=== PATIENT | female | born 1955 | race Caucasian/White ===

== ENCOUNTER 2021-10-17 13:47 | Outpatient (CLI) | payer MEDICARE, SELFPAY ==
[2021-10-17 16:08] LABS: Chloride* 100 mmol/L (96-114)
[2021-10-17 16:09] LABS: Potassium* 4.5 mmol/L (3.6-5.1); Sodium* 134 mmol/L (135-149)
[2021-10-17 16:11] LABS: Creatinine* 0.6 mg/dL (0.5-1.5); Estimated Glomerular Filt Rate 98 ml/min
[2021-10-17 16:12] LABS: Blood Urea Nitrogen* 19 mg/dL (7-30); Calcium* 9.6 mg/dL (8.4-10.6); Carbon Dioxide* 27 mmol/L (20-32); Glucose* 217 mg/dL (60-115)
== END 2021-10-17 13:48 | disposition home or self-care (01) ==
PROVIDERS: PCP Family Medicine; Visit Provider Family Medicine
DX: E11.9 Type 2 diabetes mellitus without complications (principal); E87.1 Hypo-osmolality and hyponatremia; R53.83 Other fatigue; G89.4 Chronic pain syndrome
CPT/HCPCS: 80048; 84443

== ENCOUNTER 2022-01-12 11:08 | Outpatient (CLI) | payer MEDICARE, BC, SELFPAY ==
--- OUTSIDE RECORDS SUMMARY | 2022-01-21 08:45 | XMS_ITS | Encounter Summary ---
:1955 Author Organization [employer] Address [address], [place] [address] Care Team Providers Name Role Phone Thalia Barron PA-C Primary Care Provider Unavailable Reason for Visit Reason Comments NECK PAIN PAT STATED NECK IN A LOT OF PAIN TODAY Encounter Details Date Type Department Care Team Description 01/26/2019 Telephone Physicians Neck and Nehemiah Kothari N NIKITA PAIN (PAT STATED Back Center [facility] e PT NECK IN A LOT OF PAIN [address] [facility] [address] [address] [place] [address] [place], [place] [id number] Social History Tobacco Use Types Packs/Day Years [...] PLEASE ADVISE. PAT HAS APPT TODAY @ 3307. THANK YOU, Logan Thomson 01/26/2019, 7:55 AM GNMENT EDITOR documented in this encounter Plan of Treatment Not on filedocumented as of this encounter Visit Diagnoses Not on filedocumented in this encounter Care Teams Director Prison Relationship Specialty Start Date End Date Thalia Barron PA-C PCP - General Physician Twisting Machine Operator 10/06/18 documented as of this encounter
--- OUTSIDE RECORDS SUMMARY | 2022-01-21 08:45 | XMS_ITS | Encounter Summary ---
:1955 Author Organization [facility] Address [address], [place] [address] Care Team Providers Name Role Phone Thalia Barron PA-C Primary Care Provider Unavailable Encounter Details Date Type Department Care Team Description 02/01/2019 Notes/Orders Physicians Neck and Nehemiah Kothari M echanical low back pain (Primary Dx); Back Center PT Cervical spine pain [place] [address] [place] [address], [address] [place] [id number] Social History Tobacco Use [...] the morning with??Sx <??or = to??3-4??MET 01/12/19?? Tag Machine Operator Goals (>6 weeks): ?? 1. Patient [...] < or = to??1-2 in her feet??(not [id number], varies day to day) 6. Pt will [...] T-roto Nehemiah Kothari PT 02/01/2019, 7:35 PM EATION INSTRUCTOR documented in this encounter Plan of Treatment Not on filedocumented as of this encounter Visit Diagnoses Diagnosis Mechanical low back pain - Primary Lumbago Cervical spine pain Cervicalgia documented in this encounter Care Teams Computer Assembler Relationship Specialty Start Date End Date Thalia Barron PA-C PCP - General Physician Senior Maintenance Technician 10/06/18 documented as of this encounter
--- OUTSIDE RECORDS SUMMARY | 2022-01-21 08:45 | XMS_ITS | Encounter Summary ---
:1955 Author [facility] Address [address] [place] [id number] Care Team Providers Name Role Phone Thalia [...] OF SPINE LOW BACK PAIN Thalia Barron, [facility] [place] [address] [address] [facility], [address] [place] [address] [place] [address] Phone: Fax: Referral ID Status Reason Start Date Expiration Date Visits Requ ested Visits Authorized [id number] Closed 10/06/2018 01/05/2020 [id number] Encounter Details Date Type Department Care Team Description 01/28/2019 Therapy Physicians Neck and Marimar Pan PTA Mechanical low back pain (Primary Dx); Back Center [facility] [address], Cervical spine pain [address] [facility], [address] [place] [address] [place] [address] [phone] Social History Tobacco Use Types Packs/Day Years [...] tolerated) Start: 11:20 am End: 12:00 pm (ELECTRICAL/INSTRUMENT TECHNICIAN Visit # 1 Subjective: Patient plans to [...] to avoid flare Tests performed today (see [facility] for score and outcomes): : Oswestry=42% today, [...] discharges from the rehab and transitions to [facility] for strength maintenance of the cervical muscles. [...] exercise sheet and match the machines that [facility] uses. All STG's met, 3/ LTG [...] the morning with??Sx <??or = to??3-4??MET 01/12/19?? Senior Care Goals (>6 weeks): ?? 1. Patient will [...] < or = to??1-2 in her feet??(not [id number], varies day to day) 6. Pt will [...] 40 Khadijah Pan PTA 01/28/2019, 2:34 PM NGUAL SECRETARY documented in this encounter Plan of Treatment Not on filedocumented as of this encounter Visit Diagnoses Diagnosis Mechanical low back pain - Primary Lumbago Cervical spine pain Cervicalgia documented in this encounter Care Teams Occupational Therapy Director Relationship Specialty Start Date End Date Thalia Barron PA-C PCP - General Physician Returning Officer 10/06/18 documented as of this encounter
--- OUTSIDE RECORDS SUMMARY | 2022-01-21 08:45 | XMS_ITS | Encounter Summary ---
:1955 Author Organization [facility] Address [address] [place] [address] Care Team Providers Name Role Phone Thalia [...] OF SPINE LOW BACK PAIN Thalia Barron, PnJohn J. Pershing VA Medical CenterLower [place] PA-C [address] [address] [address] [facility], [address] [place] [address] [place] [address] Phone: Fax: Referral ID Status Reason Start Date Expiration Date Visits Requ ested Visits Authorized [id number] Closed 10/06/2018 01/05/[phone] Encounter Details Date Type Department Care Team Description 01/26/2019 Therapy Physicians Neck and Nehemiah Kothari M echanical low back pain (Primary Dx); Back Center [place] ty[place] PT Cervical spine pain [address] [facility], [address] [place] [address] [place] [address] [phone] Social History Tobacco Use Types Packs/Day Years [...] out as lesley) Start: 12:24 End: 1:02 (TRUMPET TEACHER Visit # 0 Subjective: States she hasn't [...] the morning with??Sx <??or = to??3-06/24??MET 01/12/19?? Experimental Electronics Developer Goals (>6 weeks): ?? 1. Patient will [...] 38 Nehemiah Kothari, PT 01/26/2019, 1:52 PM E SHOE REBUILDER documented in this encounter Plan of Treatment Not on filedocumented as of this encounter Visit Diagnoses Diagnosis Mechanical low back pain - Primary Lumbago Cervical spine pain Cervicalgia documented in this encounter Care Teams Supervisor Throwing Department Relationship Specialty Start Date End Date Thalia Barron PA-C PCP - General Physician Physicist Acoustics 10/06/18 documented as of this encounter
--- OUTSIDE RECORDS SUMMARY | 2022-01-21 08:45 | XMS_ITS | Encounter Summary ---
:1955 Author Organization [facility] Address [address] [place] [address] Care Team Providers Name Role Phone Thalia Barron PA-C Primary Care Provider Unavailable Reason for Visit Reason Onset Date Comments BACK PAIN, LOW 01/28/2019 NECK PAIN 01/28/2019 Encounter Details Date Type Department Care Team Description 01/28/2019 Office Visit Physicians Prashanth and Cecilia Calloway, Post l aminectomy syndrome; Back Center Mechanical low back pain; [place] Cervical spine pain; [address] [facility] deco [facility], [address] [place] [address] Social History Tobacco Use Types Packs/Day Years Used Date Smoking Tobacco: Never Alcohol Use Standard Drinks/Week Comments No 0 (1 standard drink = 0.6 oz pure alcoho l) Recovering alcoholic Sex Assigned at Date Recorded Not on file documented as of this encounter Patient Instructions Patient InstructionsCecilia Calolway MD - 01/28/2019 12:15 PM CST You [...] call our clinic or your family doctor. SEMAKER HELPER documented in this encounter Progress Notes Cecilia [...] week and daily stretches. Thalia Barron PA-C [address] [place] [address] SEMAKER HELPER documented in this encounter Plan of Treatment Not on filedocumented as of this encounter Visit Diagnoses Diagnosis Post laminectomy syndrome Postlaminectomy syndrome, unspecified re gion Mechanical low back pain Lumbago Cervical spine pain Cervicalgia Muscular deconditioning Muscular wasting and disuse atrophy, not elsewhere classified documented in this encounter Care Teams Chartered Accountant Relationship Specialty Start Date End Date Thalia Barron PA-C PCP - General Physician Finance Lead 10/06/18 documented as of this encounter
--- OUTSIDE RECORDS SUMMARY | 2022-01-21 08:45 | XMS_ITS | Encounter Summary ---
:1955 Author Organization [facility] Address [address] [place] [address] Care Team Providers Name Role Phone Thalia [...] OF SPINE LOW BACK PAIN Thalia Barron, [facility] [place]IG[place] [address] [place] [address] [facility], [address] [place] [address] [place] [address] Phone: Fax: Referral ID Status Reason Start Date Expiration Date Visits Requ ested Visits Authorized [id number] Closed 10/06/2018 01/05/[phone] Encounter Details Date Type Department Care Team Description 01/18/2019 Therapy Physicians Neck and Marimar Pan PTA Mechanical low back pain (Primary Dx); Back Center [facility] [address] [facility], Cervical spine pain [address] [facility], [address] [place] [address] [place] [address] [phone] Social History Tobacco Use Types Packs/Day Years [...] tolerated) Start: 11:15 am End: 12:00 pm (ADMINISTRATIVE AND PROGRAM SPECIALIST Visit # 3 Subjective: Patient was really [...] of the benefits related to completing the [facility] Rehab program LENCHO, NDI see above for results. Improved on both indexes. Patient responded well the education on improvement with her strength gains and impact on daily lifetoday. Assessment: ROM: no changes. Graph #'s discussed in how much improvement has occurred since start ofcare at [facility]> Goals: reviewed with LENCHO/NDI Pt tolerated [...] the morning with??Sx <??or = to??3-4??MET 01/12/19?? Maintenance And Engineering Manager Goals (>6 weeks): ?? 1. Patient [...] 45 Khadijah Pan PTA 01/18/2019, 2:10 PM FEN HOUSE SUPERVISOR documented in this encounter Plan of Treatment Not on filedocumented as of this encounter Visit Diagnoses Diagnosis Mechanical low back pain - Primary Lumbago Cervical spine pain Cervicalgia documented in this encounter Care Teams Book Shelver Relationship Specialty Start Date End Date Thalia Barron PA-C PCP - General Physician Lineman Apprentice 10/06/18 documented as of this encounter
--- OUTSIDE RECORDS SUMMARY | 2022-01-21 08:45 | XMS_ITS | Clinical Summary ---
:1955 Author Organization [facility] Address [address], [place] [address] Care Team Providers Name Role Phone Thalia [...] for each transition of care or referral. 1st Merchant Funding Allergies Active Allergy Reactions Severity Noted Date [...] PRN. LW Addl Instr:for eczema on hand Hemet-3 Fatty Acids ([facility] Take 1 capsule by [...] 15 3 Active (AKA MYCOLOG-II) Applicatorful 0 737358-2.1 UNIT/GM-% cream topically 3 times daily. LW [...] Pressure 118/80 05/01/2009 7:20 AM C: Dynamap BOILER ERECTOR Pulse 102 05/01/2009 7:20 AM BOILER ERECTOR Temperature 36.7 ??C (98.1 ??F) 05/01/2009 7:20 AM ORAL C: 9 8.1 F BOILER ERECTOR Respiratory Rate 16 05/01/2009 7:20 AM BOILER ERECTOR Oxygen Saturation 96% 05/01/2009 7:21 AM BOILER ERECTOR Inhaled Oxygen Concentration - - Weight - [...] Phone Addre ss Type Group MEDICARE MEDICARE [id number] 2012-Presen [id number] Medicare MANAGED CARE t 5 BCBS BCBS BCBS VENETIE [id number] 2016-Presen [phone] [address] [address] Medicare BLUE t 5 [place] [address] Guarantor Name Account Type Relation to Date of Phone Billing Patient Address Dilcia Multani, Personal/Family Self 1955 [address] (Home) [place] [phone] [address] (Work) Dilcia Multani Personal/Family Self 1955 [address] (Home) [place] [address] Dilcia Multani Personal/Family Self 1955 [address] ([place]) [place] [phone] [address] (Work) Care Teams Community Services Manager Relationship Specialty Start Date End Date Thalia Barron PA-C PCP - General Physician Director Of Religious Activities 10/06/18
--- OUTSIDE RECORDS SUMMARY | 2022-01-21 08:45 | XMS_ITS | Encounter Summary ---
:1955 Author Organization [facility] Address [address], [place] [address] Care Team Providers Name Role Phone Thalia Barron PA-C Primary Care Provider Unavailable Reason for Visit Reason Comments Other Home Exercise Question Encounter Details Date Type Department Care Team Description 02/04/2019 Telephone Physicians Prashanth and Maxim, Marimar Cid PTA Other (Home Exercise Back Center [facility] [address] [facility], Question) [address] [facility], [facility] [address] [place] [address] [place] [address] [phone] Social History Tobacco Use Types Packs/Day Years [...] call back. Catherine Ramirez 02/04/2019, 1:53 PM R TUBE TUBER MACHINE OPERATOR Catherine Ramirez - 02/04/2019 1:34 PM CST [...] head weight? Catherine Ramirez 02/04/2019, 1:35 PM R TUBE TUBER MACHINE OPERATOR documented in this encounter Plan of Treatment Not on filedocumented as of this encounter Visit Diagnoses Not on filedocumented in this encounter Care Teams Retinal Angiographer Relationship Specialty Start Date End Date Thalia Barron PA-C PCP - General Physician Agile Test Lead 10/06/18 documented as of this encounter
--- OUTSIDE RECORDS SUMMARY | 2022-01-21 08:45 | XMS_ITS | Clinical Summary ---
:1955 Author Organization [email or web address] [facility] [place] [address] Care Team Providers Name Role Phone Anoop [...] syndrome) needed. fluticasone (50 mcg Inhale 1 [place] 0 12/29/19 Active per actuation) nasal to [...] Take 1 capsule. 0 12/29/19 Active oils-om3,6,9no1 ([place] by mouth once 22 3-6-9) 1,200 mg [...] 10/27/1912/28/ Discontinu ed composerIndications: Please send to [facility] [address] [place] [address] 2021 (*Med Sleep apnea in adult complete/Regim [...] egim en complete/L evel of care change) [id number] 3-35-2 TAKE 1 TABLET BY 60 Tablet [...] Date Type Specialty Care Team Description 01/07/2022 Care Home Fatmata Eid MD Er ror-please disregard 01/07/2022 Travel 01/03/2022 Orders Only Scanner <No scans attac hed> 01/03/2022 Nurse Triage Fang Oconnor RN Abnormal L ab Results (Abnormal BMP) 01/02/2022 Care Home Emi Wyatt NP Transition al Care Visit (SHOPPING INVESTIGATOR admit ) 01/02/2022 Nurse Triage Renata Underwood [...] Group MEDICARE PART A MEDICARE PART A [id number] 2012-Presen ATTN: CLAIMS - HB USE ONLY HB ONLY t [address] [place] [id number] MEDICARE PART B MEDICARE PART B [id number] 2012-Presen ATTN: CLAIMS - HB USE ONLY HB ONLY t [address] [place] [address] MEDICARE PART B MEDICARE PART B [id number] 2012-Presen ATTN: CLAIMS - HB USE ONLY HB ONLY t [address] [place] [address] BLUE CROSS MR MR BC [place] [id number] 2013-Presen [address] [place] [address] BLUE CROSS BLUE CROSS [id number] 2016-Presen [address] [address] [place] BLUE [place] [employer], [place] HB ONLY [id number] BLUE CROSS MR BLUE CROSS [id number] 2016-Presen [address] [address] [place] BLUE t [employer], [place] MR PB ONLY [phone] Advance Directives Latest Code Status on File Code Status Date Activated Date Inactivated Comments Full Code 2005 1:25 PM 05/17/2005 7:54 PM Full Code 2005 9:32 AM 2005 1:25 PM Care Teams Roll Threader Operator Relationship Specialty Start Date End Date Anoop Emery MD PCP - General Family Practice 04/09/211999 [place] [address]
--- OUTSIDE RECORDS SUMMARY | 2022-01-21 08:45 | XMS_ITS | Encounter Summary ---
:1955 Author Organization [employer] Address [address] [address] Care Team Providers Name Role Phone Thalia Barron PA-C Primary Care Provider Unavailable Reason for Visit Reason Comments Other HEP bands Encounter Details Date Type Department Care Team Description 01/21/2019 Telephone Physicians Neck and Back Nehemiah Kothari, PT Other (HEP bands) [facility] [address] [facility] [address] [facility], [address] [place] [address] [place] [address] [phone] Social History Tobacco Use Types Packs/Day Years [...] with information. Catherine Ramirez 01/21/2019, 8:46 AM PULLER documented in this encounter Plan of Treatment Not on filedocumented as of this encounter Visit Diagnoses Not on filedocumented in this encounter Care Teams Shrink Pit Operator Relationship Specialty Start Date End Date Thalia Barron PA-C PCP - General Physician Head Cd Reactor Operator 10/06/18 documented as of this encounter
--- OUTSIDE RECORDS SUMMARY | 2022-01-21 08:46 | XMS_ITS | Encounter Summary ---
:1955 Author Organization [facility] Address [address] [place] [address] Care Team Providers Name Role Phone Thalia [...] OF SPINE LOW BACK PAIN Thalia Barron, [facility] R[place]RIGO [address] [place] [address] [facility], [address] [place] [address] [place] [address] Phone: Fax: Referral ID Status Reason Start Date Expiration Date Visits Requ ested Visits Authorized [id number] Closed 10/06/2018 01/05/2020 999 999 Encounter Details Date Type Department Care Team Description 11/05/2018 Therapy Physicians Neck and Marimar Pan PTA Mechanical low back pain (Primary Dx); Back Center [facility] [address] [facility], Cervical spine pain [address] [facility], [address] [place] [address] [place] [address] [phone] Social History Tobacco Use Types Packs/Day Years [...] as tolerated)Start: 10:32 am End: 11:15 am (BUCKLE STAPLER Visit # 1 Subjective: Patient reports joints [...] 35# 20 hams 35# 20 HEP hook plant etiologist for lats/rows, body mechanics Therapeutic Activities (3 min): Educated pt on body mechanics in the kitchen to prevent twisting at the waist. Patient has had auto body repairman training before so could replicate turning hips towards the direction of movement and not twisting. Patient Education: Patient was instructed in specific review of patients progress and correlation of strength and function to increase their understanding of the benefits related to completing the [facility] Rehab program Short auto body repairman review when moving in the kitchen. Patient [...] Cervicalgia documented in this encounter Care Teams Aligner Barrel And Receiver Relationship Specialty Start Date End Date Thalia Barron PA-C PCP - General Physician Digital Account Director 10/06/18 documented as of this encounter
--- OUTSIDE RECORDS SUMMARY | 2022-01-21 08:46 | XMS_ITS | Encounter Summary ---
:1955 Author Organization [facility] Address [address] [place] [address] Care Team Providers Name Role Phone Thalia [...] LOW BACK PAIN Thalia Barron, [facility] [place] [address] [place] [address], [address] [place] [address] [place] [address] Phone: Fax: Referral ID Status Reason Start Date Expiration Date Visits Requ ested Visits Authorized [id number] Closed 10/06/2018 01/05/2020 999 999 Encounter Details Date Type Department Care Team Description 01/12/2019 Therapy Physicians Neck and Bubba Kwong, [facility] hanical low back pain (Primary Dx); Back Center [facility] CAREER REPRESENTATIVE Cervical spine pain [address] [facility], [address] [facility] , [address] [place] [address] [place] [address] [phone] (Wo rk) Social History Tobacco Use Types [...] out as tolerated) Start: 1110a End: 1152a (CAREER REPRESENTATIVE Visit # 1 Subjective: Pt reports neck [...] Tests & Measures: Tests performed today ([facility] for score and outcomes): : None Performed [...] 24 Right Rot Reps 20 Right Rot Keivn RPE 6 Therapeutic Exercise (42 min): Patient [...] the morning with??Sx <??or = to??3-4/10??MET 01/12/19?? Intermediate Goals (>6 weeks): ?? 1. Patient will [...] 42 Total treatment time: 42 Bubba Kwong, CAREER REPRESENTATIVE 01/12/2019, 11:56 AM Associated attestation - Cecilia Calloway MD - 01/14/2019 7:40 AM CDT Agree with assessment and treatment plan documented in this encounter Plan of Treatment Not on filedocumented as of this encounter Visit Diagnoses Diagnosis Mechanical low back pain - Primary Lumbago Cervical spine pain Cervicalgia documented in this encounter Care Teams Telecommunication Lines Repairer Relationship Specialty Start Date End Date Thalia Barron PA-C PCP - General Physician State Highway Police Officer 10/06/18 documented as of this encounter
--- OUTSIDE RECORDS SUMMARY | 2022-01-21 08:46 | XMS_ITS | Encounter Summary ---
:1955 Author Organization [facility] Address [address] [place] [address] Care Team Providers Name Role Phone Thalia [...] OF SPINE LOW BACK PAIN Thalia Barron, [facility] [place]IG[place] [address] [place] [address] [place] [address], [address] [place] [address] [place] [address] Phone: Fax: Referral ID Status Reason Start Date Expiration Date Visits Requ ested Visits Authorized [id number] Closed 10/06/2018 01/05/[phone] Encounter Details Date Type Department Care Team Description 11/17/2018 Therapy Physicians Neck and Bubba Kwong, [facility] hanical low back pain (Primary Dx); Back Center [facility] jayson [facility] Cervical spine pain [address] [facility], [address] [facility] , [address] [place] [address] [place] [address] [phone] (Wo rk) Social History Tobacco Use Types [...] Start: 1128a (13 minutes late) End: 1203p (DIRECTOR OF ENTERTAINMENT Visit # 2 Subjective: Toenail removed last [...] morning with??Sx < or = to??3-4/10 ?? Fpc Goals (>6 weeks): 1. Patient will be [...] Cervicalgia documented in this encounter Care Teams Batter Out Relationship Specialty Start Date End Date Thalia Barron PA-C PCP - General Physician Turfgrass Technician 10/06/18 documented as of this encounter
--- OUTSIDE RECORDS SUMMARY | 2022-01-21 08:46 | XMS_ITS | Encounter Summary ---
:1955 Author Organization [facility] Address [address], [place] [address] Care Team Providers Name Role Phone Thalia Barron PA-C Primary Care Provider Unavailable Reason for Visit Reason Comments BACK PAIN, LOW Lost HEP access code Encounter Details Date Type Department Care Team Description 10/21/2018 Telephone Physicians Neck and Nehemiah Kothari B ACK PAIN, LOW (Lost Back Center [place] PT HEP access code) [address] [facility], [address] [facility] [address] [place] [address] [place] [address] [phone] Social History Tobacco Use Types Packs/Day Years [...] on filedocumented in this encounter Care Teams Process Control Engineer Relationship Specialty Start Date End Date Thalia Barron PA-C PCP - General Physician Blown Film Extrusion Operator 10/06/18 documented as of this encounter
--- OUTSIDE RECORDS SUMMARY | 2022-01-21 08:46 | XMS_ITS | Encounter Summary ---
:1955 Author Organization [employer] Address [address] [place] [address] Care Team Providers Name Role Phone Thalia Barron PA-C Primary Care Provider Unavailable Reason for Visit Reason Onset Date Comments ARM PAIN 12/31/2018 LEG PAIN 12/31/2018 BACK PAIN 12/31/2018 NECK PAIN 12/31/2018 Encounter Details Date Type Department Care Team Description 12/31/2018 Office Visit Physicians Prashanth and Cecilia Calloway, Post l aminectomy syndrome; Back Center Mechanical low back pain; [place] Cervical disc syndrome; [address] [place] Cervical spin al stenosis; Center, [address] Muscular deconditioning [place], [place] [address] Social History Tobacco Use Types Packs/Day Years [...] MD 12/31/2018, 4:34 PM Thalia Barron PA-C [address] [place] [address] documented in this encounter Plan of Treatment [...] classified documented in this encounter Care Teams Soft Work Cigar Machine Operator Relationship Specialty Start Date End Date Thalia Barron PA-C PCP - General Physician Energy Operations Vice President 10/06/18 documented as of this encounter
--- OUTSIDE RECORDS SUMMARY | 2022-01-21 08:46 | XMS_ITS | Encounter Summary ---
:1955 Author Organization [employer] Address [address] [place] [address] Care Team Providers Name Role Phone Tahlia Barron PA-C Primary Care Provider Unavailable Reason for Visit Reason Onset Date Comments ARM PAIN 11/20/2018 LEG PAIN 11/20/2018 BACK PAIN, LOW 11/20/2018 NECK PAIN 11/20/2018 Encounter Details Date Type Department Care Team Description 11/20/2018 Office Visit Physicians Prashanth and Cecilia Calloway, Post l aminectomy syndrome; Back Center Mechanical low back pain; [place] Cervical disc syndrome; [address] [place] Cervical spin al stenosis; Center, [address] Cervical spine pain; [place] [address] Muscular deconditioning [phone] Social History Tobacco Use Types Packs/Day Years [...] MD 11/20/2018, 12:40 PM Thalia Barron PA-C [address] [place] [address] documented in this encounter Plan of Treatment [...] classified documented in this encounter Care Teams Woodworking Machine Operator Relationship Specialty Start Date End Date Thalia Barron PA-C PCP - General Physician Environmental Health Inspector 10/06/18 documented as of this encounter
--- OUTSIDE RECORDS SUMMARY | 2022-01-21 08:46 | XMS_ITS | Encounter Summary ---
:1955 Author Organization [facility] Address [address] [place] [address] Care Team Providers Name Role Phone Thalia [...] OF SPINE LOW BACK PAIN Thalia Barron, [facility] W[facility] [address] [place] [address] [facility], [address] [place] [address] [place] [address] Phone: Fax: Referral ID Status Reason Start Date Expiration Date Visits Requ ested Visits Authorized [id number] Closed 10/06/2018 01/05/2020 999 999 Encounter Details Date Type Department Care Team Description 11/20/2018 Therapy Physicians Neck and Nehemiah Kothari M echanical low back pain (Primary Dx); Back Center [place] Cervical spine pain [address] [facility], [address] [place] [address] [place] [address] [phone] Social History Tobacco Use Types Packs/Day Years [...] out as tolerated)?? Start: 10:50 End: 11:30 (GOLF CLUB HEAD INSPECTOR AND ADJUSTER Visit # 2 Subjective: States her foot [...] morning with??Sx < or = to??3-4/10 ?? Assisted Goals (>6 weeks): 1. Patient will be [...] Cervicalgia documented in this encounter Care Teams Questioned Documents Examiner Relationship Specialty Start Date End Date Thalia Barron PA-C PCP - General Physician Openstack Developer 10/06/18 documented as of this encounter
--- OUTSIDE RECORDS SUMMARY | 2022-01-21 08:46 | XMS_ITS | Encounter Summary ---
:1955 Author Organization [facility] Address [address] [place] [address] Care Team Providers Name Role Phone Denise Harris MD Primary Care Provider Encounter Details Date Type Department Care Team Description 06/02/2009 Office Visit [facility] Joshua Pires MD [address] [facility] [address] [place], [place] [address] [place] [address] [phone] (Wo rk) Social History Tobacco Use Types [...] 07/07/102101 Note Time: 06/02/09 0001 Status: Signed Manifest Clerk: Joshua Zaidi MD (Physician) NAME: FANTA COUGHLIN VISIT: [id number] DICTATING CLINICIAN: JOSHUA ZAIDI MD JOB: [id number] LOC: 0839 CLINIC PROGRESS NOTE DATE OF VISIT: 06/02/2009 [...] she is encouraged to call clinic. DOCUMENT: [id number] documented in this encounter Plan of Treatment Not on filedocumented as of this encounter Visit Diagnoses Not on filedocumented in this encounter Care Teams Shared Services And Outsourcing Manager Relationship Specialty Start Date End Date Denise Harris MD PCP - General 06/17/10 10/05/[address] [place] [address] documented as of this encounter
--- OUTSIDE RECORDS SUMMARY | 2022-01-21 08:46 | XMS_ITS | Encounter Summary ---
:1955 Author Organization [facility] Address [address] [place] [address] Care Team Providers Name Role Phone Thalia [...] LOW BACK PAIN Thalia Barron, [facility] RODRIGO [address] [place] [address] [facility], [address] [place] [address] [place] [address] Phone: Fax: Referral ID Status Reason Start Date Expiration Date Visits Requ ested Visits Authorized [id number] Closed 10/06/2018 01/05/[phone] Encounter Details Date Type Department Care Team Description 12/25/2018 Therapy Physicians Neck and Back Margarette Taylor Mechanical low back pain (Primary Dx); [facility] ZACHERY Crocker Cervical spine pain [address] [facility], [address], [place] [address] [place] [address] [place], [place] [id number] Social History Tobacco Use Types Packs/Day Years [...] out as lesley) Start: 11:14 End: 12:00 (CRISIS WORKER Visit # 2 Subjective: Pt says she [...] of the benefits related to completing the [facility] Rehab program Assessment: self regulates how many [...] over the last couple days 12/17/18 ?? Nursery Rn Goals (>6 weeks): 1. Patient will be [...] Cervicalgia documented in this encounter Care Teams Damper Worker Relationship Specialty Start Date End Date Thalia Barron PA-C PCP - General Physician Welding Systems And Equipment Repairer 10/06/18 documented as of this encounter
--- OUTSIDE RECORDS SUMMARY | 2022-01-21 08:46 | XMS_ITS | Encounter Summary ---
:1955 [facility] Address [address] [place] [address] Care Team Providers Name Role Phone Thalia [...] OF SPINE LOW BACK PAIN Thalia Barron, [facility] WALLACE [address] [place] 100 [facility], [address] [place] [address] [place] [address] Phone: Fax: Referral ID Status Reason Start Date Expiration Date Visits Requ ested Visits Authorized [id number] Closed 10/06/2018 01/05/[phone] Encounter Details Date Type Department Care Team Description 12/10/2018 Therapy Physicians Neck and Nehemiah Kothari M echanical low back pain (Primary Dx); [facility] PT Cervical spine pain [address] [facility], [address] [place] [address] [place] [address] [place] [address] [phone] Social History Tobacco Use Types Packs/Day Years [...] out as lesley) Start: 10:30 End: 11:15 (SENIOR EMBEDDED SOFTWARE ENGINEER Visit # 0 Subjective: States two [...] exercise intensity progression) (see prec/other info) Vj wallace review, C-ext 100%, T-roto 60% = #22 Total timed code min: 45 Total treatment time: 45 Nehemiah Kothari, PT 12/10/2018, 11:17 AM documented in this encounter Plan of Treatment Not on filedocumented as of this encounter Visit Diagnoses Diagnosis Mechanical low back pain - Primary Lumbago Cervical spine pain Cervicalgia documented in this encounter Care Teams Moderate Needs Teacher Relationship Specialty Start Date End Date Thalia Barron PA-C PCP - General Physician Administrative Office Manager 10/06/18 documented as of this encounter
--- OUTSIDE RECORDS SUMMARY | 2022-01-21 08:46 | XMS_ITS | Encounter Summary ---
:1955 [facility] Address [address] [place] [address] Care Team Providers Name Role Phone Denise Harris MD Primary Care Provider Encounter Details Date Type Department Care Team Description 01/24/2010 Office Visit [facility] Joshua Zaidi MD [address] [place] [address] [place] [address] [phone] (Wo rk) Social History Tobacco Use Types Packs/Day Years Used Date Smoking Tobacco: Former Alcohol Use Standard Drinks/Week Comments No 0 (1 standard drink = 0.6 oz pure alcoho l) Recovering alcoholic Sex Assigned at Date Recorded Not on file documented as of this encounter Progress Notes Joshua Zaidi MD - 01/24/2010 12:01 AM CST NAME: FANTA GREGORIO VISIT: [id number] DICTATING CLINICIAN: JOSHUA ZAIDI MD JOB: [id number] LOC: 3711 CLINIC PROGRESS NOTE DATE OF [...] she is encouraged to call clinic. D: [id number] T: [id number] DOCUMENT: [id number]. [id number].[facility] GER HIV documented in this encounter Plan of Treatment Not on filedocumented as of this encounter Visit Diagnoses Not on filedocumented in this encounter Care Teams Environmental Monitoring Specialist Relationship Specialty Start Date End Date Denise Harris MD PCP - General 06/17/10 10/05/181999 [place] [address] documented as of this encounter
--- OUTSIDE RECORDS SUMMARY | 2022-01-21 08:46 | XMS_ITS | Encounter Summary ---
:1955 Author Organization [facility] Address [address] [place] [address] Care Team Providers Name Role Phone Thalia [...] OF SPINE LOW BACK PAIN Thalia Barron, [facility] WALLACE [address] [place] [address] [facility], [address] [place] [address] [place] [address] Phone: Fax: Referral ID Status Reason Start Date Expiration Date Visits Requ ested Visits Authorized [id number] Closed 10/06/2018 01/05/[phone] Encounter Details Date Type Department Care Team Description 12/17/2018 Therapy Physicians Neck and Nehemiah Kothari M echanical low back pain (Primary Dx); [facility] [place] Cervical spine pain [address] [facility], [address] [place] [address] [place] [address] [place] [address] [phone] Social History Tobacco Use Types Packs/Day Years [...] out as lesley) Start: 11:22 End: 12:00 (PRACTICAL NURSING TEACHER Visit # 0 Subjective: States she is [...] over the last couple days 12/17/18 ?? Fpc Goals (>6 weeks): 1. Patient [...] Cervicalgia documented in this encounter Care Teams Dry Kiln Operator Relationship Specialty Start Date End Date Thalia Barron PA-C PCP - General Physician Log Roper 10/06/18 documented as of this encounter
--- OUTSIDE RECORDS SUMMARY | 2022-01-21 08:46 | XMS_ITS | Encounter Summary ---
:1955 Author Organization [facility] Address [address] [place] [address] Care Team Providers Name Role Phone Thalia [...] OF SPINE LOW BACK PAIN Thalia Barron, [facility] RODRIGO [address] [place] [address] [facility], [address] [place] [address] [place] [address] Phone: Fax: Referral ID Status Reason Start Date Expiration Date Visits Requ ested Visits Authorized [id number] Closed 10/06/2018 01/05/2020 999 999 Encounter Details Date Type Department Care Team Description 11/25/2018 Therapy Physicians Neck and Marimar Pan PTA Mechanical low back pain (Primary Dx); Back Center [facility] [address], Cervical spine pain [address] [facility], [place] [address] [place] [address] [place] [address] [phone] Social History Tobacco Use Types Packs/Day Years [...] tolerated) Start: 2:30 pm End: 3:16 pm (COMMERCIAL DRIVER'S LICENSE DRIVER Visit # 3 Subjective: Patient continues to [...] of the benefits related to completing the [facility] Rehab program Assessment: Pt tolerated the treatment [...] morning with??Sx < or = to??3-410 ?? Silo Operator Goals (>6 weeks): 1. Patient will be [...] Cervicalgia documented in this encounter Care Teams Pad Machine Feeder Relationship Specialty Start Date End Date Thalia Barron PA-C PCP - General Physician Efficiency Manager 10/06/18 documented as of this encounter
--- OUTSIDE RECORDS SUMMARY | 2022-01-21 08:46 | XMS_ITS | Encounter Summary ---
:1955 [facility] Address [address] [place] [address] Care Team Providers Name Role Phone Thalia [...] LOW BACK PAIN Thalia Barron, [facility] RODRIGO [address] [place] 100 [facility], [address] [place] [address] [place] [address] Phone: Fax: Referral ID Status Reason Start Date Expiration Date Visits Requ ested Visits Authorized [id number] Closed 10/06/2018 01/05/2020 999 999 Encounter Details Date Type Department Care Team Description 01/15/2019 Therapy Physicians Neck and Marimar Pan PTA Mechanical low back pain (Primary Dx); Back Center [facility] [address], Cervical spine pain [address] [facility], [place] [address] [place] [address] [place] [address] [phone] Social History Tobacco Use Types Packs/Day Years [...] tolerated) Start: 10:50 am End: 11:30 am (CLINICAL RESOURCE COORDINATOR Visit # 2 Subjective: Patient states she [...] the morning with??Sx <??or = to??3-4/10??MET 01/12/19?? Recruitment Consultant Goals (>6 weeks): ?? 1. Patient will [...] Cervicalgia documented in this encounter Care Teams Equipment Lead Relationship Specialty Start Date End Date Thalia Barron PA-C PCP - General Physician Search Planner 10/06/18 documented as of this encounter
--- OUTSIDE RECORDS SUMMARY | 2022-01-21 08:46 | XMS_ITS | Encounter Summary ---
:1955 Author Organization [facility] Address [address] [address] Care Team Providers Name Role Phone Thalia Barron PA-C Primary Care Provider Unavailable Encounter Details Date Type Department Care Team Description 10/21/2018 Episode Changes Physicians Neck and Back Nehemiah Kothari, PT [facility] [address] [facility] [address] [facility], [address] [place] [address] [place] [address] [phone] Social History Tobacco Use Types Packs/Day Years Used Date Smoking Tobacco: Never Alcohol Use Standard Drinks/Week Comments No 0 (1 standard drink = 0.6 oz pure alcoho l) Recovering alcoholic Sex Assigned at Date Recorded Not on file documented as of this encounter Plan of Treatment Not on filedocumented as of this encounter Visit Diagnoses Not on filedocumented in this encounter Care Teams Technical Operations Specialist Relationship Specialty Start Date End Date Thalia Barron PA-C PCP - General Physician Clothing Supervisor 10/06/18 documented as of this encounter
--- OUTSIDE RECORDS SUMMARY | 2022-01-21 08:46 | XMS_ITS | Encounter Summary ---
:1955 Author Organization [facility] Address [address] [address] Care Team Providers Name Role Phone Denise Harris MD Primary Care Provider Encounter Details Date Type Department Care Team Description 07/15/2010 PN Conversion Only CONVERSION CONVERSION Kaylah Harris MD [address] [place] [address] (Wo rk) Social History [...] on filedocumented in this encounter Care Teams Saturator Operator Relationship Specialty Start Date End Date Denise Harris MD PCP - General 06/17/10 10/05/18[address] [place] [address] documented as of this encounter
--- OUTSIDE RECORDS SUMMARY | 2022-01-21 08:46 | XMS_ITS | Encounter Summary ---
:1955 Author Organization [facility] Address [address] [address] Care Team Providers Name Role Phone Thalia Barron PA-C Primary Care Provider Unavailable Reason for Visit Reason Onset Date Comments LEG PAIN 10/08/2018 HEADACHE 10/08/2018 BACK PAIN, LOW 10/08/2018 NECK PAIN 10/08/2018 Encounter Details Date Type Department Care Team Description 10/08/2018 Office Visit Physicians Neck and Cecilia Calloway MD Pos t laminectomy syndrome; Back Center [facility] Mechanical low back pain; [address] [facility], Cervi caprice disc syndrome; [address] Cervical spinal stenosis; [place] [address] Cervical spine pain [phone] Social History Tobacco Use Types Packs/Day Years [...] PA-C Referring physician: Thalia Barron PA-C [address] [place] [address] Reason for Consult: Evaluation of spine rehabilitation [...] participated in the pain management program at [facility]. She was diagnosed with centralized pain [...] havenot been helpful. Pain management program at [facility] was also helpful. She was diagnosed with [...] file Gets together: Not on file Attends zoroastrianism service: Not on file Active member of [...] hours). 100 13 ??? nystatin-triamcinolone (AKA MYCOLOG-II) 542590-5.1 UNIT/GM-% cream Apply 1 Applicatorful topically 3 times daily. LW Addl Instr:pt applies to left corner of eye and left corner of mouth 15 3 ??? [place]-3 Fatty Acids ([facility] FISH OIL) 1200 MG [...] Disability Index: No Value exists for the HYDRO PNEUMATIC TESTER: HP#[id number]% Neck Disability Index: No Value exists for the HYDRO PNEUMATIC TESTER: HP#NDISCORE% Labs: White Blood Cell Count (k/cmm) Date Value 05/01/2009 8.0 Hemoglobin (gm/dL) Date Value 05/01/2009 10.2 (L) Normal: 12-17 No results found for: HGBA1C, [id number] Creatinine Serum (mg/dL) Date Value 04/30/2009 0.7 [...] improve her spinalfitness level, and maintain it machine long goods helper, I think she has a good chance [...] Neck and Back Center Thalia Barron PA-C [address] [place] [address] documented in this encounter Plan of Treatment Not on filedocumented as of this encounter Visit Diagnoses Diagnosis Post laminectomy syndrome Postlaminectomy syndrome, unspecified re gion Mechanical low back pain Lumbago Cervical disc syndrome 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
--- OUTSIDE RECORDS SUMMARY | 2022-01-21 08:46 | XMS_ITS | Encounter Summary ---
:1955 Author Organization [facility] Address [address] [place] [address] Care Team Providers Name Role Phone Thalia [...] SPINE LOW BACK PAIN Thalia Barron, [facility] RODRIGO [address] [place] [address] [place] [address], [address] [place] [address] [place] [address] Phone: Fax: Referral ID Status Reason Start Date Expiration Date Visits Requ ested Visits Authorized [id number] Closed 10/06/2018 01/05/2020 999 999 Encounter Details Date Type Department Care Team Description 12/01/2018 Therapy Physicians Neck and Bubba Kwong, [facility] hanical low back pain (Primary Dx); Back Center [facility] jayson [facility] Cervical spine pain [address] [facility], [address] [facility] , [address] [place] [address] [place] [address] [place] [address] [phone] (Wo rk) Social History Tobacco Use Types [...] out as tolerated) Start: 1109a End: 1202p (FILM CASTING OPERATOR Visit # 4 Subjective: Pt reports neuropathy [...] of the benefits related to completing the [facility] Rehab program Therapeutic activities with standing [...] morning with??Sx < or = to??3-4/10 ?? Tub Puller Goals (>6 weeks): 1. Patient will be [...] Observed treatment. Goals/Plan of Care discussed with FILM CASTING OPERATOR. Treatment progressing and appropriate. Sherin Nguyễn, PT 12/01/2018, 1:41 PM documented in this encounter Plan of Treatment Not on filedocumented as of this encounter Visit Diagnoses Diagnosis Mechanical low back pain - Primary Lumbago Cervical spine pain Cervicalgia documented in this encounter Care Teams Regulatory Affairs Coordinator Relationship Specialty Start Date End Date Thalia Barron PA-C PCP - General Physician Iv Rn 10/06/18 documented as of this encounter
--- OUTSIDE RECORDS SUMMARY | 2022-01-21 08:46 | XMS_ITS | Encounter Summary ---
:1955 Author Organization [facility] Address [address], [place] [address] Care Team Providers Name Role Phone Thalia Barron PA-C Primary Care Provider Unavailable Reason for Visit Reason Comments No Show Encounter Details Date Type Department Care Team Description 12/04/2018 Telephone Physicians Neck and Back Sherin Rasmussen, PT No Show [facility] [address] [facility] [address] [place] [address] [address] [place] [id number] [phone] Social History Tobacco Use Types Packs/Day Years [...] on filedocumented in this encounter Care Teams Adjuster Arbitrator Relationship Specialty Start Date End Date Thalia Barron PA-C PCP - General Physician Production Line Welder 10/06/18 documented as of this encounter
--- OUTSIDE RECORDS SUMMARY | 2022-01-21 08:46 | XMS_ITS | Encounter Summary ---
:1955 Author [facility] Address [address] [place] [address] Care Team Providers Name Role Phone Thalia [...] OF SPINE LOW BACK PAIN Thalia Barron, [facility] RODRIGO [address] [place] 100 [facility], [address] [place] [address] [place] [address] Phone: Fax: Referral ID Status Reason Start Date Expiration Date Visits Requ ested Visits Authorized [id number] Closed 10/06/2018 01/05/2020 999 999 Encounter Details Date Type Department Care Team Description 12/28/2018 Therapy Physicians Neck and Marimar Pan PTA Mechanical low back pain (Primary Dx); Back Center [facility] [address] [place] [address], Cervical spine pain [address] [facility], [address] [place] [address] [place] [address] [phone] Social History Tobacco Use Types Packs/Day Years [...] tolerated) Start: 11:20 am End: 12:08 pm (EDGE STITCHER Visit # 3 Subjective: Patient reports her [...] the 2nd set. Tests performed today (see [facility] for score and outcomes): : None Performed [...] the [facility] Rehab program Seated lumbar extension instructor wastewater treatment plant. See above. Patient responded well the education [...] over the last couple days 12/17/18 ?? [facility]ci Goals (>6 weeks): 1. Patient will be [...] Cervicalgia documented in this encounter Care Teams Crusher Feeder Relationship Specialty Start Date End Date Thalia Barron PA-C PCP - General Physician Sash Installer 10/06/18 documented as of this encounter
--- OUTSIDE RECORDS SUMMARY | 2022-01-21 08:46 | XMS_ITS | Encounter Summary ---
:1955 Author Organization [facility] Address [address] [place] [address] Care Team Providers Name Role Phone Thalia [...] Barron, [facility] R[place]IG[place] [address] [place] [address], [address] [place] [address] [place] [address] Phone: Fax: Referral ID Status Reason Start Date Expiration Date Visits Requ ested Visits Authorized [id number] Closed 10/06/2018 01/05/2020 999 999 Encounter Details Date Type Department Care Team Description 12/22/2018 Therapy Physicians Neck and Bubba Kwong, [facility] hanical low back pain (Primary Dx); Back Center [facility] jayson [facility] Cervical spine pain [address] [facility], [address] [facility] , [address] [address] [place] [address] [place] [address] [phone] (Wo rk) Social History Tobacco Use Types [...] out as lesley) Start: 1114a End: 1202p (SPECIAL EDUCATION SECRETARY Visit # 1 Subjective: Pt reports Neck [...] 20 Right Rot Kevin RPE some R scientology pain Objective Tests & Measures: Tests performed [...] Set 1 Ext Kevin RPE 5 self [id number] Set 2 Ext % Max - Set [...] of the benefits related to completing the [facility] Rehab program Assessment: Yaz Multani tolerated treatment ok, right scientology pressure and nerve per pt bothered with [...] over the last couple days 12/17/18 ?? Assisted Goals (>6 weeks): 1. Patient [...] Cervicalgia documented in this encounter Care Teams Regional Ehs Manager Relationship Specialty Start Date End Date Thalia Barron PA-C PCP - General Physician Welfare Case Worker 10/06/18 documented as of this encounter
--- OUTSIDE RECORDS SUMMARY | 2022-01-21 08:46 | XMS_ITS | Encounter Summary ---
:1955 Author Organization [facility] Address [address] [place] [address] Care Team Providers Name Role Phone Thalia [...] SPINE LOW BACK PAIN Thalia Barron, [facility]IG[facility] [address] [place] [address] [facility], [address] [place] [address] [place] [address] Phone: Fax: Referral ID Status Reason Start Date Expiration Date Visits Requ ested Visits Authorized [id number] Closed 10/06/2018 01/05/2020 999 999 Encounter Details Date Type Department Care Team Description 10/15/2018 Therapy Physicians Neck and Nehemiah Kothari M echanical low back pain (Primary Dx); Back Center Noman tyler PT Cervical spine pain [address] [facility], [address] [place] [address] [place] [address] Social History Tobacco Use Types [...] Oswestry Disability Index: 48% Neck Disability Index: 44.8378146392127% Personal Care: morning routine getting dressed Lifting: [...] with Sx < or = to 3-4/10 Longterm Goals (>6 weeks): 1. Patient will be [...] Activities to prevent future injury/aggravation Discharge Plan: [place] in strength maintenance home exercise program TODAY'S INTERVENTIONS: Therapeutic Exercise and Therapeutic Activity Nehemiah Kothari, PT 10/15/2018, 1:35 PM 10/15/2018 Visit # 1 Protocol: Neck (acute, disc, stenosis) and Back (acute, disc, adv out as lesley) Start: 10:31End: 11:30 (IRONWORKER APPRENTICE Visit # 0 Subjective: see eval Cervical [...] Pt withspecific exercises to perform. Access Code: [email or web address] URL: [email or web address] Date: 10/21/2018 Prepared by: Nehemiah Kothari Exercises [...] with Sx < or = to 3-4/10 Spike Maker Goals (>6 weeks): 1. Patient will be [...] Cervicalgia documented in this encounter Care Teams Verse Writer Relationship Specialty Start Date End Date Thalia Barron PA-C PCP - General Physician Taker Off Drying Kiln 10/06/18 documented as of this encounter
--- OUTSIDE RECORDS SUMMARY | 2022-01-21 08:46 | XMS_ITS | Encounter Summary ---
:1955 Author Organization [facility] Address [address] [place] [address] Care Team Providers Name Role Phone Denise Harris MD Primary Care Provider Encounter Details Date Type Department Care Team Description 05/05/2009 Office Visit [facility] Joshua Pires MD [address] [facility] [address] [place] [address] [place] [address] [phone] (Wo rk) Social History Tobacco Use Types [...] 07/07/102019 Note Time: 05/05/09 0001 Status: Signed Transfer Station Attendant: Joshua Zaidi MD (Physician) NAME: FANTA GREGORIO VISIT: [id number] DICTATING CLINICIAN: JOSHUA ZAIDI MD JOB: [id number] LOC: 3711 CLINIC PROGRESS NOTE DATE OF VISIT: 05/05/2009 Fanta is a 53-year-old that is coming in today for a postop visit. She underwent left knee total arthroplasty on 04/25/2009. She is now 10 days out from surgery. She has been staying in transitional care at [facility]. She is very happy with her care there. She has continued to progress on her physical therapy. Once she is discharged from the facility in approximately a week, she would like to attend physical therapy at [facility]. Fanta's postop recovery has been complicated with [...] she is encouraged to call clinic. DOCUMENT: [id number] LOPE FOLDING MACHINE ADJUSTER documented in this encounter Plan of Treatment Not on filedocumented as of this encounter Visit Diagnoses Not on filedocumented in this encounter Care Teams Core Machine Operator Relationship Specialty Start Date End Date Denise Harris MD PCP - General 06/17/10 10/05/181999 [place] [address] documented as of this encounter
--- OUTSIDE RECORDS SUMMARY | 2022-01-21 08:46 | XMS_ITS | Encounter Summary ---
:1955 Author Organization [facility] Address [address] [place] [address] Care Team Providers Name Role Phone Thalia [...] OF SPINE LOW BACK PAIN Thalia Barron, Cox Monettprashant WALLACE [address] [facility], [address] [place] [address] [place] [address] Phone: Fax: Referral ID Status Reason Start Date Expiration Date Visits Requ ested Visits Authorized [id number] Closed 10/06/2018 01/05/[phone] Encounter Details Date Type Department Care Team Description 10/23/2018 Therapy Physicians Neck and Nehemiah Kothari M echanical low back pain (Primary Dx); Back Center Noman tyler PT Cervical spine pain [address] [facility], [address] [place] [address] [place] [address] [phone] Social History Tobacco Use Types Packs/Day Years [...] out as lesley) Start: 10:50 End: 11:32 (SENIOR WATER/WASTEWATER ENGINEER Visit # 0 Subjective: States she has [...] Cervicalgia documented in this encounter Care Teams Curator Of Manuscripts Relationship Specialty Start Date End Date Thalia Barron PA-C PCP - General Physician Veneer Supervisor 10/06/18 documented as of this encounter
--- OUTSIDE RECORDS SUMMARY | 2022-01-21 08:46 | XMS_ITS | Encounter Summary ---
:1955 Author Organization [facility] Address [address] [place] [address] Care Team Providers Name Role Phone Thalia [...] SPINE LOW BACK PAIN Thalia Barron, Pnbc Perry RODRIGO [address] [place] [address], [address] [place] [address] [place] [address] Phone: Fax: Referral ID Status Reason Start Date Expiration Date Visits Requ ested Visits Authorized [id number] Closed 10/06/2018 01/05/2020 999 999 Encounter Details Date Type Department Care Team Description 01/08/2019 Therapy Physicians Neck and Sherin Nguyễn, [place] chanical low back pain (Primary Dx); Back Center Noman tyler PT Cervical spine pain [address] [facility], [address] [place] [address] [place], [place] [id number] [phone] Social History Tobacco Use Types Packs/Day Years [...] as tolerated) Start: 12:42 pmEnd: 1:28 pm (TUBE HEATER Visit # 0 Subjective: Patient arrived early for her originally scheduled appointment but was able to be seen earlier for treatment. Patient states she had a big jump in heartrate while at [facility] on 12/28/18 which jumped up to [...] 80 foot pounds. Tests performed today ([facility] score and outcomes): : Heartrate: See [...] 2 - Other With Lats: Used B [place]. Quads with Large Block and pillow behind [...] patient reports that was due to having congregational discomfort; informed patient that would repeat same [...] over the last couple days 12/17/18 ?? Tar Boiler Goals (>6 weeks): ?? 1. Patient will [...] Cervicalgia documented in this encounter Care Teams Pasteurizing Supervisor Relationship Specialty Start Date End Date Thalia Barron PA-C PCP - General Physician Photographic Laboratory Technician 10/06/18 documented as of this encounter
--- OUTSIDE RECORDS SUMMARY | 2022-01-21 08:46 | XMS_ITS | Encounter Summary ---
:1955 Author [facility] Address [address], [place] [address] Care Team Providers Name Role Phone Thalia Barron PA-C Primary Care Provider Unavailable Reason for Visit Reason Comments Other Encounter Details Date Type Department Care Team Description 01/04/2019 Telephone Physicians Neck and Back Center Yuri Calloway MD [facility] [address] [place] [address] [place] , [address] [place] [address] Social History Tobacco Use Types [...] to set up and stand at a Orthodox event on Friday for several hours with [...] on filedocumented in this encounter Care Teams Geospatial Scientist Relationship Specialty Start Date End Date Thalia Barron PA-C PCP - General Physician Skid Machine Operator 10/06/18 documented as of this encounter"
--- OUTSIDE RECORDS SUMMARY | 2022-01-21 08:46 | XMS_ITS | Encounter Summary ---
:1955 Author Organization [facility] Address [address] [place] [address] Care Team Providers Name Role Phone Thalia [...] SPINE LOW BACK PAIN Thalia Barron, Pnbc Epps RODRIG[place] [address] [place] [address], [address] [place] [address] [place] [address] Phone: Fax: Referral ID Status Reason Start Date Expiration Date Visits Requ ested Visits Authorized [id number] Closed 10/06/2018 01/05/[phone] Encounter Details Date Type Department Care Team Description 11/02/2018 Therapy Physicians Neck and Sherin Nguyễn, [place] chanical low back pain (Primary Dx); Back Center Noman tyler PT Cervical spine pain [address] [facility], [address] [place] [address] [place], [place] [address] [phone] Social History Tobacco Use Types Packs/Day Years [...] lesley)?? Start: 10:52 am End: 11:38 am (RNFA Visit # 0 Subjective: Patient states she feels beat up today - reports, I just got back from [place] played hard and my body feels [...] 20 Other Lats and Rows: Used B [place]. Abs: Small Block. Quads with Large Block [...] morning with??Sx < or = to??3-4/10 ?? Halfway Goals (>6 weeks): 1. Patient will be [...] Cervicalgia documented in this encounter Care Teams Aerodynamics Professor Relationship Specialty Start Date End Date Thalia Barron PA-C PCP - General Physician Cigar Bander 10/06/18 documented as of this encounter
--- OUTSIDE RECORDS SUMMARY | 2022-01-21 08:46 | XMS_ITS | Encounter Summary ---
:1955 Author Organization [facility] Address [address] [place] [address] Care Team Providers Name Role Phone Denise Harris MD Primary Care Provider Encounter Details Date Type Department Care Team Description 07/19/2009 Office Visit [facility] Joshua Pires MD [address] [place], [place] [address] [place] [address] [phone] (Wo rk) Social History Tobacco Use Types [...] 2212 Note Time: 07/19/09 0001 Status: Signed Ironer Sock: Joshua Zaidi MD (Physician) NAME: FANTA GREGORIO VISIT: [id number] DICTATING CLINICIAN: JOSHUA ZAIDI MD JOB: [id number] LOC: 3713 CLINIC PROGRESS NOTE DATE OF VISIT: 07/19/2009 [...] patient's office visit was 15 minutes of ojxi-xp-iwmi time of which 10 minutes was counseling. DOCUMENT: [id number] documented in this encounter Plan of Treatment Not on filedocumented as of this encounter Visit Diagnoses Not on filedocumented in this encounter Care Teams Master Of Ceremonies Relationship Specialty Start Date End Date Denise Harris MD PCP - General 06/17/10 10/05/[address] [place] [address] documented as of this encounter
--- OUTSIDE RECORDS SUMMARY | 2022-01-21 08:46 | XMS_ITS | Encounter Summary ---
:1955 Author Organization [facility] Address [address] [place] [address] Care Team Providers Name Role Phone Thalia [...] Thalia Barron, [facility] [place] [address] [place] [address] [facility], [address] [place] [address] [place] [address] Phone: Fax: Referral ID Status Reason Start Date Expiration Date Visits Requ ested Visits Authorized [id number] Closed 10/06/2018 01/05/2020 999 999 Encounter Details Date Type Department Care Team Description 12/31/2018 Therapy Physicians Neck and Marimar Pan PTA Mechanical low back pain (Primary Dx); Back Center [facility] [address], Cervical spine pain [address] [facility], [address] [place] [address] [place] [address] [phone] Social History Tobacco Use Types Packs/Day Years [...] tolerated) Start: 11:20 am End: 12:00 pm (TINTER PHOTOGRAPH Visit # 4 Subjective: Patient reports her body doesn't want to work well today. She continues to worry why thecold pack doesn't fit around her waist anymore. She states she doesn't feel like she is eating more/gaining wt. Patient has an MD follow up instead of her tunnel heading inspector so she hopes that appt will get her a referral to the tunnel heading inspector quicker. Patient states she did not do [...] of the benefits related to completing the [facility] Re[facility] program Assessment: Pt tolerated the treatment [...] over the last couple days 12/17/18 ?? Partition Making Machine Operator Goals (>6 weeks): ?? 1. [...] Observed treatment. Goals/Plan of Care discussed with TINTER PHOTOGRAPH. Treatment progressing and appropriate. Nehemiah Kothari, SANDRA 01/01/2019, 8:52 AM documented in this encounter Plan of Treatment Not on filedocumented as of this encounter Visit Diagnoses Diagnosis Mechanical low back pain - Primary Lumbago Cervical spine pain Cervicalgia documented in this encounter Care Teams High School Chemistry Teacher Relationship Specialty Start Date End Date Thalia Barron PA-C PCP - General Physician Bi Tester 10/06/18 documented as of this encounter
--- OUTSIDE RECORDS SUMMARY | 2022-01-21 08:46 | XMS_ITS | Encounter Summary ---
:1955 Author Organization [facility] Address [address] [place] [address] Care Team Providers Name Role Phone Thalia [...] SPINE LOW BACK PAIN Thalia Barron, Pnbc Beccaria RODRIGO [address] [place] [address], [address] [place] [address] [place] [address] Phone: Fax: Referral ID Status Reason Start Date Expiration Date Visits Requ ested Visits Authorized [id number] Closed 10/06/2018 01/05/2020 999 999 Encounter Details Date Type Department Care Team Description 10/19/2018 Therapy Physicians Neck and Sherin Nguyễn, [place] chanical low back pain (Primary Dx); Back Center Noman tyler PT Cervical spine pain [address] [facility], [address] [place] [address] [place], [place] [address] [phone] Social History Tobacco Use Types Packs/Day Years [...] lesley) Start: 1:44 pm End: 2:30 pm (BORING MACHINE OPERATOR VERTICAL Visit # 0 Subjective: PT inadvertently did [...] and keep gate open. Lats: Used B [place]. Rows: Used B [place]. Therapeutic Activities (0 min): Not performed today. [...] Sx < or = to 3-4/10 ?? Manager Salt Goals (>6 weeks): 1. Patient will be [...] Cervicalgia documented in this encounter Care Teams Data Abstractor Relationship Specialty Start Date End Date Thalia Barron PA-C PCP - General Physician Junior High School Teacher 10/06/18 documented as of this encounter
--- OUTSIDE RECORDS SUMMARY | 2022-01-21 08:46 | XMS_ITS | Encounter Summary ---
:1955 Author Organization [facility] Address [address] [place] [address] Care Team Providers Name Role Phone Thalia [...] SPINE LOW BACK PAIN Thalia Barron, Pnbc [place] RODRIG[place] [address] [place] [address] [place] [address], [address] [place] [address] [place] [address] Phone: Fax: Referral ID Status Reason Start Date Expiration Date Visits Requ ested Visits Authorized [id number] Closed 10/06/2018 01/05/2020 999 999 Encounter Details Date Type Department Care Team Description 11/09/2018 Therapy Physicians Neck and Sherin Nguyễn, [place] chanical low back pain (Primary Dx); Back Center Noman tyler PT Cervical spine pain [address] [facility], [address] [place] [address] [place], [place] [address] [phone] Social History Tobacco Use Types Packs/Day Years [...] tolerated) Start: 10:47 am End: 11:32 am (AGRICULTURAL SYSTEMS SPECIALIST Visit # 1 Subjective: Patient states her [...] 20 Other Rows and Lats: Used B [place]. No time for Quads and Hams today [...] morning with??Sx < or = to??3-4/10 ?? Senior Net Application Developer Goals (>6 weeks): 1. Patient will be [...] code min: 45 Total treatment time: 45 Sehrin Nguyễn, PT 11/09/2018, 12:03 PM documented in this encounter Plan of Treatment Not on filedocumented as of this encounter Visit Diagnoses Diagnosis Mechanical low back pain - Primary Lumbago Cervical spine pain Cervicalgia documented in this encounter Care Teams Mobile Manager Relationship Specialty Start Date End Date Thalia Barron PA-C PCP - General Physician Ethanol Quality Leader 10/06/18 documented as of this encounter
--- OUTSIDE RECORDS SUMMARY | 2022-01-21 08:46 | XMS_ITS | Encounter Summary ---
:1955 Author Organization [facility] Address [address], [place] [address] Care Team Providers Name Role Phone Thalia Barron PA-C Primary Care Provider Unavailable Reason for Visit Reason Comments BACK PAIN, LOW NECK PAIN Encounter Details Date Type Department Care Team Description 12/07/2018 Telephone Physicians Neck and Maxim, Marimar Cid, CHURCH WARDEN BACK PAIN, LOW; [place] [address] [facility], PAIN [address] [facility], [facility] [address] [place] [address] [place] [address] [phone] Social History Tobacco Use Types Packs/Day Years Used Date Smoking Tobacco: Never Alcohol Use Standard Drinks/Week Comments No 0 (1 standard drink = 0.6 oz pure alcoho l) Recovering alcoholic Sex Assigned at Date Recorded Not on file documented as of this encounter Plan of Treatment Not on filedocumented as of this encounter Visit Diagnoses Not on filedocumented in this encounter Care Teams Button Pusher Relationship Specialty Start Date End Date Thalia Barron PA-C PCP - General Physician Word Processor Technician 10/06/18 documented as of this encounter
--- OUTSIDE RECORDS SUMMARY | 2022-01-21 08:47 | XMS_ITS | Encounter Summary ---
:1955 Author Organization [facility] Address [address] [place] [address] Care Team Providers Name Role Phone Denise Harris MD Primary Care Provider Encounter Details Date Type Department Care Team Description 12/03/1999 Therapy [place] [address] [address] [place], [place] [address] (Wo rk) Social History Tobacco Use Types Packs/Day Years Used Date Smoking Tobacco: Never Assessed Sex Assigned at Date Recorded Not on file documented as of this encounter Plan of Treatment Not on filedocumented as of this encounter Visit Diagnoses Not on filedocumented in this encounter Care Teams Store Management Trainee Relationship Specialty Start Date End Date Deinse Harris MD PCP - General 06/17/10 10/05/[address] [place] [address] documented as of this encounter
--- OUTSIDE RECORDS SUMMARY | 2022-01-21 08:47 | XMS_ITS | Encounter Summary ---
:1955 Author Organization [facility] Address [address], [place] [address] Care Team Providers Name Role Phone Unavailable Primary Care Provider Unavailable Encounter Details Date Type Department Care Team Description 06/18/1999 Hospital Encounter [place] [address] [place], [place] [address] (Wo rk) Social History Tobacco Use Types Packs/Day Years Used Date Smoking Tobacco: Never Assessed Sex Assigned at Date Recorded Not on file documented as of this encounter Plan of Treatment Not on filedocumented as of this encounter Visit Diagnoses Not on filedocumented in this encounter
--- OUTSIDE RECORDS SUMMARY | 2022-01-21 08:47 | XMS_ITS | Clinical Summary ---
:1955 Author Organization [facility] Address [address] [place] [address] Care Team Providers Name Role Phone Margie [...] Active MG capsule mouth 3 times daily Bellona-3 Fatty Acids Take by mouth 2 0 [...] Organization Address City/State/ZIP Code Phon e Number [facility] [address] [address] (ABNORMAL) Basic metabolic panel (01/03/2022 10:12 AM [...] and gender (Jeni et al., NEJ, DOI: 10.1056/[id number]) Specimen Anatomical Collection Method / Collection Time Recei fahad Time (Source) Location / Volume Laterality Blood STRUCTURE OF LEFT Venipuncture / 01/03/2022 10:12 10 5:44 UPPER LIMB / Unknown AM CDT PM CDT Unknown Emi Wyatt NP LAB - BLOOD ORDERABLES Performing Organization Address City/State/ZIP Code Phon e Number [facility] [place] [address] [phone] Lab 500 [facility] J Building, Room 3-580 (ABNORMAL) CBC with platelets (01/03/2022 10:12 AM CDT) [facility] gist Method Time Signature WBC Count [...] City/State/ZIP Code Phon e Number [facility] [place] [address] Lab 500 [facility] [address] Building, Room 3-580 from Last 3 Months Insurance Payer Benefit Plan / Subscriber ID Effective Phone Address T ype Group Dates BCBS BCBS PILOT STATION [id number] 2016-Prese [phone] [address] [address] PPO BLUE nt [address] [place] [address] MEDICARE MEDICARE FOR HB [id number] 2014-Prese [phone] ATTN CLAIMS Medicare SUPPLEMENT nt 40 [address] [place] [address] (Home) [place] [address] Care Teams Shoe Singer Relationship Specialty Start Date End Date Denise Harris PCP - General Internal Medicine 01/17/15 [facility] [address] [place] [address] Anoop Emery Referring Physician Family Medicine 09/15/20 [facility] [address] [place] [address] Inez Peck MD Urology 09/15/20 [place] 420 [facility] [address] [place], [place] [address] Inez Peckg, Assigned Surgical 11/12/20 MD Provider [address] [place] [address]
--- OUTSIDE RECORDS SUMMARY | 2022-01-21 08:47 | XMS_ITS | Encounter Summary ---
:1955 Author Organization [facility] Address [address] [address] Care Team Providers Name Role Phone Denise Harris MD Primary Care Provider Encounter Details Date Type Department Care Team Description 01/26/2003 PN Conversion Only [place] [facility] [address] [place] [address] Social History Tobacco Use Types Packs/Day Years Used Date Smoking Tobacco: Never Assessed Sex Assigned at Date Recorded Not on file documented as of this encounter Plan of Treatment Not on filedocumented as of this encounter Visit Diagnoses Not on filedocumented in this encounter Care Teams Head Of Digital Relationship Specialty Start Date End Date Denise Harris MD PCP - General 06/17/10 10/05/[address] [place] [address] documented as of this encounter
--- OUTSIDE RECORDS SUMMARY | 2022-01-21 08:47 | XMS_ITS | Encounter Summary ---
:1955 Author Organization [facility] Address [address] [place] [address] Care Team Providers Name Role Phone Denise [...] documented as of this encounter Care Teams Multiple Effect Evaporator Operator Relationship Specialty Start Date End Date Denise Harris PCP - General Internal Medicine 01/17/15 [facility] [address] [place] [address] Anoop Emery Referring Physician Family Medicine 09/15/20 [facility] [address] [place] [address] Inez Peck MD MD Urology 09/15/[address] [place] [address] documented as of this encounter
--- OUTSIDE RECORDS SUMMARY | 2022-01-21 08:47 | XMS_ITS | Encounter Summary ---
:1955 Author Organization [facility] Address [address] [address] Care Team Providers Name Role Phone Denise Harris MD Primary Care Provider Encounter Details Date Type Department Care Team Description 06/08/2003 Therapy Kizzy Erazo l Therapy Anna Mohan [address] [place] [address] Social History Tobacco Use Types Packs/Day Years Used Date Smoking Tobacco: Never Assessed Sex Assigned at Date Recorded Not on file documented as of this encounter Plan of Treatment Not on filedocumented as of this encounter Visit Diagnoses Not on filedocumented in this encounter Care Teams Outcome Analyst Relationship Specialty Start Date End Date Denise Harris MD PCP - General 06/17/10 10/05/[address] [place] [address] documented as of this encounter
--- OUTSIDE RECORDS SUMMARY | 2022-01-21 08:47 | XMS_ITS | Encounter Summary ---
:1955 Author Organization [facility] Address [address] [place] [address] Care Team Providers Name Role Phone Denise Harris MD Primary Care Provider Encounter Details Date Type Department Care Team Description 01/27/2006 Office Visit [facility] Joshua Zaidi MD [address] [facility] [address] [employer] [address] [address] [place] [address] [phone] (Wo rk) Social History Tobacco Use Types [...] 1527 Note Time: 01/27/06 0001 Status: Signed Correctional Officer Sergeant: Joshua Zaidi MD (Physician) NAME: FANTA COUGHLIN MR#: [id number] ACCT: [id number] VISIT: [id number] DICTATING CLINICIAN: JOSHUA ZAIDI MD JOB: [id number] LOC: 371 CLINIC PROGRESS NOTE DATE OF VISIT: 01/27/2006 Corrected Copy: 01/29/06 [facility] SUBJECTIVE: : 1955Candy Mukherjee is a [...] However, she does work out with a certified athletic trainer at the gym. She also [...] Scarlett Capone PA-C for Joshua Zaidi MD JLB:[id number] C: 01/29/06 13:38 DOCUMENT: [id number] OR PROFESSIONAL SERVICES CONSULTANT documented in this encounter Plan of Treatment Not on filedocumented as of this encounter Visit Diagnoses Not on filedocumented in this encounter Care Teams School Boat Driver Relationship Specialty Start Date End Date Denise Harris MD PCP - General 06/17/10 10/05/[address] [place] [address] documented as of this encounter
--- OUTSIDE RECORDS SUMMARY | 2022-01-21 08:47 | XMS_ITS | Encounter Summary ---
:1955 Author Organization [facility] Address [address], [place] [address] Care Team Providers Name Role Phone Unassigned, Provider Primary Care Provider Unavailable Reason for Visit Reason Onset Date Comments MEDICATION REVIEW AND EDUCATION 07/29/2007 Encounter Details Date Type Department Care Team Description 07/29/2007 Telephone [facility] Vianney Jauregui, MEDICATION REVIEW AND [address] [place] [address] [address] [phone] [place], [place] [address] [phone] (Wo rk) Social History Tobacco Use Types [...] on filedocumented in this encounter Care Teams Engineer Station Mainline Relationship Specialty Start Date End Date Unassigned, Provider PCP - General 03/27/00 06/16/[address] [place] [address] documented as of this encounter
--- OUTSIDE RECORDS SUMMARY | 2022-01-21 08:47 | XMS_ITS | Encounter Summary ---
:1955 Author Organization [facility] Address [address] [address] Care Team Providers Name Role Phone Denise Harris MD Primary Care Provider Encounter Details Date Type Department Care Team Description 07/22/2003 PN Conversion Only [facility] [address] [place] [address] Social History Tobacco Use Types Packs/Day Years Used Date Smoking Tobacco: Never Assessed Sex Assigned at Date Recorded Not on file documented as of this encounter Plan of Treatment Not on filedocumented as of this encounter Visit Diagnoses Not on filedocumented in this encounter Care Teams Cashier Self Service Gasoline Relationship Specialty Start Date End Date Denise Harris MD PCP - General 06/17/10 10/05/[address] [place] [address] documented as of this encounter
--- OUTSIDE RECORDS SUMMARY | 2022-01-21 08:47 | XMS_ITS | Encounter Summary ---
:1955 Author Organization [employer] [facility] Address [address], [place] [address] Care Team Providers Name Role Phone Unassigned, Provider Primary Care Provider Unavailable Reason for Visit Reason Onset Date Comments MEDICATION REVIEW AND EDUCATION 09/28/2007 Encounter Details Date Type Department Care Team Description 09/28/2007 Telephone [facility] Vianney Jauregui, MEDICATION REVIEW AND [address] [place] [place] [address] [address] [phone] [place], [place] [address] [phone] ( rk) Social History Tobacco Use Types [...] for follow-up evaluation. Please call me at [phone], if you have questions. Vianney Jauregui, Pharm [...] on filedocumented in this encounter Care Teams Steam Crane Operator Relationship Specialty Start Date End Date Unassigned, Provider PCP - General 03/27/00 06/16/[address] [place] [address] documented as of this encounter
--- OUTSIDE RECORDS SUMMARY | 2022-01-21 08:47 | XMS_ITS | Encounter Summary ---
:1955 Author Organization [facility] Address [address] [address] Care Team Providers Name Role Phone Denise Harris MD Primary Care Provider Encounter Details Date Type Department Care Team Description 04/03/1999 Therapy Judaism Physical T herAnna Cabrera [address] [place] [address] Social History Tobacco Use Types Packs/Day Years Used Date Smoking Tobacco: Never Assessed Sex Assigned at Date Recorded Not on file documented as of this encounter Plan of Treatment Not on filedocumented as of this encounter Visit Diagnoses Not on filedocumented in this encounter Care Teams Associate Software Engineer Relationship Specialty Start Date End Date Denise Harris MD PCP - General 06/17/10 10/05/[address] [place] [address] documented as of this encounter
--- OUTSIDE RECORDS SUMMARY | 2022-01-21 08:47 | XMS_ITS | Encounter Summary ---
:1955 Author Organization [facility] Address [address] [place] [address] Care Team Providers Name Role Phone Denise Harris MD Primary Care Provider Encounter Details Date Type Department Care Team Description 03/27/2009 Office Visit [facility] Joshua Pires MD [address] [place] [address] [place], [place] [address] (Wo rk) Social History Tobacco Use Types [...] 07/07/101920 Note Time: 03/27/09 0001 Status: Signed Transportation Planner: Joshua Zaidi MD (Physician) NAME: FANTA GREGORIO ACCT: [id number] DICTATING CLINICIAN: JOSHUA ZAIDI MD JOB: [id number] LOC: 6838 CLINIC PROGRESS NOTE DATE OF VISIT: 03/27/2009 [...] currently lives with her works for the [employer]. She does admit to alcohol, but has [...] the patient. CC: Vivek Man MD DOCUMENT: [id number] BUSINESS DEVELOPMENT documented in this encounter Plan of Treatment Not on filedocumented as of this encounter Visit Diagnoses Not on filedocumented in this encounter Care Teams Deputy Harbormaster Relationship Specialty Start Date End Date Denise Harris MD PCP - General 06/17/10 10/05/181999 [place] [address] documented as of this encounter
--- OUTSIDE RECORDS SUMMARY | 2022-01-21 08:47 | XMS_ITS | Encounter Summary ---
:1955 Author Organization [facility] Address [address] [address] Care Team Providers Name Role Phone Denise Harris MD Primary Care Provider Encounter Details Date Type Department Care Team Description 12/08/2002 Therapy Kizzy Erazo l Therapy Anna Mohan [address] [place] [address] Social History Tobacco Use Types Packs/Day Years Used Date Smoking Tobacco: Never Assessed Sex Assigned at Date Recorded Not on file documented as of this encounter Plan of Treatment Not on filedocumented as of this encounter Visit Diagnoses Not on filedocumented in this encounter Care Teams Claims Adjuster Supervisor Relationship Specialty Start Date End Date Denise Harris MD PCP - General 06/17/10 10/05/[address] [place] [address] documented as of this encounter
--- OUTSIDE RECORDS SUMMARY | 2022-01-21 08:47 | XMS_ITS | Encounter Summary ---
:1955 Author Organization [facility] Address [address] [place] [address] Care Team Providers Name Role Phone Unassigned, Provider Primary Care Provider Unavailable Reason for Visit Reason Onset Date Comments QUESTIONS, GENERAL 09/28/2007 Encounter Details Date Type Department Care Team Description 09/28/2007 Telephone [facility] Unassigned, Provider QUESTIONS, GENERAL [address] [place] [address] [place] [address] Social History Tobacco Use Types Packs/Day Years Used Date Smoking Tobacco: Former Alcohol Use Standard Drinks/Week Comments No 0 (1 standard drink = 0.6 oz pure alcoho l) Recovering alcoholic Sex Assigned at Date Recorded Not on file documented as of this encounter Nursing Notes Caitlin Jauregui - 09/28/2007 12:17 PM CDT Returned patient's call. Please see [facility] documentation for full detail. Caitlin Jauregui, Pharm D Daphne José - 09/28/2007 10:42 AM CDT Patient would like to speak to her either provider or nurse. Name of patient's provider: Caitlin Question regarding: Medication Summarize the patient's question or concern:Pt's is calling into the clinic in regards to want to talk with caitlin about her medication profile. Daphne Stanley documented in this encounter Plan of Treatment Not on filedocumented as of this encounter Visit Diagnoses Not on filedocumented in this encounter Care Teams Clinical Practice Consultant Relationship Specialty Start Date End Date Unassigned, Provider PCP - General 03/27/00 06/16/[address] [place] [address] documented as of this encounter
--- OUTSIDE RECORDS SUMMARY | 2022-01-21 08:47 | XMS_ITS | Encounter Summary ---
:1955 Author Organization [facility] Address [address] [place] [address] Care Team Providers Name Role Phone Denise Harris MD Primary Care Provider Encounter Details Date Type Department Care Team Description 03/20/2005 Office Visit [facility] Jagdish Contreras MD [address] [facility] [address] [facility] [place] [address] [place], [place] [address] (Wo rk) Social History Tobacco Use Types Packs/Day Years Used Date Smoking Tobacco: Never Assessed Sex Assigned at Date Recorded Not on file documented as of this encounter Plan of Treatment Not on filedocumented as of this encounter Visit Diagnoses Not on filedocumented in this encounter Care Teams Parts Counter Sales Person Relationship Specialty Start Date End Date Denise Harris MD PCP - General 06/17/10 10/05/[address] [place] [address] documented as of this encounter
--- OUTSIDE RECORDS SUMMARY | 2022-01-21 08:47 | XMS_ITS | Encounter Summary ---
:1955 Author Organization [facility] Address [address] [address] Care Team Providers Name Role Phone Denise Harris MD Primary Care Provider Encounter Details Date Type Department Care Team Description 07/28/2000 Therapy Islam Physical T herAnna Cabrera [address] [place] [address] Social History Tobacco Use Types Packs/Day Years Used Date Smoking Tobacco: Never Assessed Sex Assigned at Date Recorded Not on file documented as of this encounter Plan of Treatment Not on filedocumented as of this encounter Visit Diagnoses Not on filedocumented in this encounter Care Teams Actuarial Intern Relationship Specialty Start Date End Date Deinse Harris MD PCP - General 06/17/10 10/05/[address] [place] [address] documented as of this encounter
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
--- OUTSIDE RECORDS SUMMARY | 2022-01-21 08:47 | XMS_ITS | Encounter Summary ---
:1955 Author Organization [facility] Address [address] [place] [address] Care Team Providers Name Role Phone Denise Harris Primary Care Provider Anoop Emery Unavailable Inez Peck MD Unavailable Reason for Visit Reason Onset Date Comments Previsit 11/02/2020 Encounter Details Date Type Department Care Team Description 11/02/2020 PRE VISIT [facility] Urology Natanael Peck MD Previsit Clinic [address] [place] [address] [phone] Social History Tobacco Use Types Packs/Day Years [...] 09/25/2020 1:47 PM CDT MEDICAL RECORDS REQUEST [facility] [address] [place] [address] PHONE: [phone] FUTURE VISIT INFORMATION Yaz Multani, : 1955 scheduled for future visit at [facility] APPOINTMENT INFORMATION: ?? Date: 11.02.20 ?? Provider: 2:15 PM ?? Reason for Visit/Diagnosis: Pelvic floor dysfunction in female REFERRAL INFORMATION: ?? Referring provider: Dr. Anoop Emery ?? Specialty: ?? Referring providers clinic: [facility] RECORDS REQUESTED FOR VISIT NOTES STATUS/DETAILS [...] documented as of this encounter Care Teams Research And Insights Executive Relationship Specialty Start Date End Date Denise Harris PCP - General Internal Medicine 01/17/15 [facility] [address] [place] [address] Anoop Emery Referring Physician Family Medicine 09/15/20 [facility] [address] [place] [address] Inez Peck MD MD Urology 09/15/[address] [place] [id number] documented as of this encounter
--- OUTSIDE RECORDS SUMMARY | 2022-01-21 08:47 | XMS_ITS | Encounter Summary ---
:1955 Author Organization [facility] Address [address], [place] [address] Care Team Providers Name Role Phone Denise Harris MD Primary Care Provider Encounter Details Date Type Department Care Team Description 03/31/2002 Therapy [facility] Anna Mohan [address] [place] [address] Social History Tobacco Use Types Packs/Day Years Used Date Smoking Tobacco: Never Assessed Sex Assigned at Date Recorded Not on file documented as of this encounter Plan of Treatment Not on filedocumented as of this encounter Visit Diagnoses Not on filedocumented in this encounter Care Teams Dovetailer Relationship Specialty Start Date End Date Deinse Harris MD PCP - General 06/17/10 10/05/[address] [place] [address] documented as of this encounter
--- OUTSIDE RECORDS SUMMARY | 2022-01-21 08:47 | XMS_ITS | Encounter Summary ---
:1955 Author [facility] Address [address] [address] Care Team Providers Name Role Phone Unassigned, Provider Primary Care Provider Unavailable Reason for Visit Reason Onset Date Comments MEDICATION REVIEW AND EDUCATION 07/06/2007 Encounter Details Date Type Department Care Team Description 07/06/2007 Telephone [facility] Vianney Jauregui, MEDICATION REVIEW AND [address] [place] [address] [address] [phone] [place], [place] [address] [phone] (Wo rk) Social History Tobacco Use Types [...] for follow-up evaluation. Please call me at [phone], if you have questions. Thank you, Vianney [...] in 3-6 month(s) for follow-up evaluation. Updated [facility] med list and reviewed medications including indications [...] constipation documented in this encounter Care Teams Dough Mixer Helper Relationship Specialty Start Date End Date Unassigned, Provider PCP - General 03/27/00 06/16/[address] [place] [address] documented as of this encounter
--- OUTSIDE RECORDS SUMMARY | 2022-01-21 08:47 | XMS_ITS | Encounter Summary ---
:1955 Author [facility] Address [address] [address] Care Team Providers Name Role Phone Unassigned, Provider Primary Care Provider Unavailable Encounter Details Date Type Department Care Team Description 04/25/2009 - Hospital Encounter Gnosticism Jagdish Zaidi MD [address] [place] [id number] 05/01/2009 [id number] Jagdish Zaidi MD [address] [place] [id number] [place] [address] [place] [address] Social History Tobacco Use Types Packs/Day Years Used Date Smoking Tobacco: Former Alcohol Use Standard Drinks/Week Comments No 0 (1 standard drink = 0.6 oz pure alcoho l) Recovering alcoholic Sex Assigned at Date Recorded Not on file documented as of this encounter Last Filed Vital Signs Vital Sign Reading Time Taken Comments Blood Pressure 118/80 05/01/2009 7:20 AM C: [employer] WORKER Pulse 102 05/01/2009 7:20 AM PLASTER AND [employer] WORKER Temperature 36.7 ??C (98.1 ??F) 05/01/2009 7:20 AM ORAL C: 9 8.1 F PLASTER AND [employer] WORKER Respiratory Rate 16 05/01/2009 7:20 AM P[employer]ER [employer] WORKER Oxygen Saturation 96% 05/01/2009 7:21 AM P[employer]ER [employer] WORKER Inhaled Oxygen Concentration - - Weight - - Height - - Body Mass Index - - documented in this encounter Discharge Summaries Jagdish Zaidi MD - 05/01/2009 12:01 AM CST Discharge Summaries signed by Jagdish Zadii MD at 05/10/09 1325 Author: Jagdish Zaidi MD Service: (none) Author Type: Physician Filed: 07/07/102011 Note Time: 05/01/09 1605 Status: Signed Assistive Technology Trainer: Jagdish Zaidi MD (Physician) NAME: Yaz Santamaria MR#: [id number] ACCT: [id number] AUTHENTICATING CLINICIAN: JAGDISH ZAIDI MD CONFIRM #: [id number] LOC: 1 HOSPITAL DISCHARGE SUMMARY Corrected Copy [...] was immediately fully anticoagulated and transferred to [address] [place] [address] in the cardiovascular unit. There she was [...] negative for any pathology or signs of IL. She was able to have a bowel [...] ON DISCHARGE/INSTRUCTIONS: Dictated by Pradip Suarez MD MCS:[id number] C: 05/02/09 11:57 CONFIRM #: [id number] TER [employer]UCC[employer] WORKER documented in this encounter Medications at Time [...] Apply 1 15 3 04/26/19 10 MYCOLOG-II) 236604-4.1 Applicatorful UNIT/GM-% cream topically 3 times daily. LW Addl Instr:pt applies to left corner of eye and left corner of mouth [place]-3 Fatty Acids ([facility] Take 1 capsule by [...] signed by Jagdish Zaidi MD at 04/25/09 9459 Author: Jagdish Zaidi MD Service: (none) Author Type: Physician Filed: 07/07/102002 Note Time: 04/25/09 0800 Status: Signed Assistive Technology Trainer: Jagdish Zaidi MD (Physician) Patient Name: Yaz [...] condition. Complications: No Immediate Complications. CPT Codes(s): 40486, LT, Arthroplasty, knee, condyle and plateau; medial AND lateral compartments with or without patella resurfacing (total knee arthroplasty) ICD Code(s): 715.16, Osteoarthrosis, localized, primary, involving lower leg CPT 2008 [employer]. All Rights Reserved. No fee schedules, basic units, relative values or related listings are included in CPT. A does not directly or indirectly practice medicine or dispense medical services. [facility] assumes no liability for data contained or not contained herein. CPT is a registered trademark of the [employer]. The codes documented in this report are preliminary and upon time broker review may be revised to meet current compliance requirements. Attending Participation: This operation could not have been safely performed (without compromising the technical results or length of the procedure) without the assistance of a skilled surgical consultant. A surgical consultant was medically necessary for positioning, retraction, and instrumentation. No ortho resident was available for this case. Jagdish Zaidi MD Signed Date: 04/25/2009 5:39 PM Number of Addenda: 0 Note initiated on 04/25/2009 5:21 PM Procedure Date: 04/25/2009 8:00 AM TER AND [employer] WORKER documented in this encounter Miscellaneous Notes Miscellaneous [...] Date Principal: TOTAL KNEE REPLACEMENT JAGDISH ZAIDI [id number] 81.54 Provider2: Provider3: KOSTA CHARLTON TER AND [employer]UCC[employer] WORKER documented in this encounter Plan of Treatment Not on filedocumented as of this encounter Procedures Procedure Name Priority Date/Time Associated Comments Diagnosis COMPLETE BLOOD Routine 05/01/2009 6:05 AM Results for this COUNT-W/DIFF P[employer] WORKER procedure are i n the results section. INR/PROTIME Routine 05/01/2009 6:05 AM Results f or this [employer] WORKER procedure are i n the results section. LAB TYPE, SCREEN AND Routine 04/30/2009 12:25 Res ults for this CROSSMATCH PM [employer] WORKER procedure are i n the results section. LAB TYPE, SCREEN AND Routine 04/30/2009 10:35 Res ults for this CROSSMATCH AM [employer] WORKER procedure are i n the results section. COMPLETE BLOOD Routine 04/30/2009 8:53 AM Results for this COUNT-W/DIFF P[employer] WORKER procedure are i n the results section. BASIC METABOLIC PANEL Routine 04/30/2009 8:53 AM Results for this [employer] WORKER procedure are i n the results section. INR/PROTIME Routine 04/30/2009 8:53 AM Results f or this [employer] WORKER procedure are i n the results section. TROPONIN I Routine 04/29/2009 8:29 PM Results f or this [employer] WORKER procedure are i n the results section. XR CHEST 2 VIEWS Routine 04/29/2009 4:02 PM Resul ts for this [employer] WORKER procedure are i n the results section. HEMOGLOBIN, BLOOD Routine 04/29/2009 9:01 AM Resu lts for this [employer] WORKER procedure are i n the results section. INR/PROTIME Routine 04/29/2009 9:01 AM Results f or this [employer] WORKER procedure are i n the results section. ECG 12 LEAD INPATIENT STAT 04/29/2009 6:03 AM Results for this [employer] WORKER procedure are i n the results section. CREATININE / GFR Routine 04/28/2009 5:27 AM Resul ts for this [employer] WORKER procedure are i n the results section. HEMOGLOBIN, BLOOD Routine 04/28/2009 5:27 AM Resu lts for this [employer] WORKER procedure are i n the results section. ELECTROLYTE PANEL Routine 04/28/2009 5:27 AM Resu lts for this [employer] WORKER procedure are i n the results section. INR/PROTIME Routine 04/28/2009 5:27 AM Results f or this [employer] WORKER procedure are i n the results section. BEDSIDE GLUCOSE Routine 04/27/2009 9:44 PM Result s for this MONITOR POCT P[employer] WORKER procedure are i n the results section. BEDSIDE GLUCOSE Routine 04/27/2009 5:34 PM Result s for this MONITOR POCT P[employer] WORKER procedure are i n the results section. US VENOUS BILAT LOWER Routine 04/27/2009 12:01 Re sults for this EXTREM DOPPLER PM [employer] WORKER procedure are in the results section. BEDSIDE GLUCOSE Routine 04/27/2009 11:41 Results for this MONITOR POCT AM [employer] WORKER procedure are i n the results section. BEDSIDE GLUCOSE Routine 04/27/2009 8:26 AM Result s for this MONITOR POCT P[employer] WORKER procedure are i n the results section. CREATININE / GFR Routine 04/27/2009 5:00 AM Resul ts for this [employer] WORKER procedure are i n the results section. HEMOGLOBIN, BLOOD Routine 04/27/2009 5:00 AM Resu lts for this [employer] WORKER procedure are i n the results section. ELECTROLYTE PANEL Routine 04/27/2009 5:00 AM Resu lts for this [employer] WORKER procedure are i n the results section. INR/PROTIME Routine 04/27/2009 5:00 AM Results f or this [employer] WORKER procedure are i n the results section. BEDSIDE GLUCOSE Routine 04/26/2009 9:16 PM Result s for this MONITOR POCT P[employer] WORKER procedure are i n the results section. BEDSIDE GLUCOSE Routine 04/26/2009 7:35 PM Result s for this MONITOR POCT P[employer] WORKER procedure are i n the results section. CT ANGIO CHEST W IV STAT 04/26/2009 7:24 PM Re sults for this CONT PE STUDY P[employer] WORKER procedure are in the results section. CREATININE / GFR Routine 04/26/2009 6:30 PM Resul ts for this [employer] WORKER procedure are i n the results section. COMPLETE BLOOD Routine 04/26/2009 6:30 PM Results for this COUNT-W/DIFF [employer] WORKER procedure are i n the results section. ELECTROLYTE PANEL Routine 04/26/2009 6:30 PM Resu lts for this [employer] WORKER procedure are i n the results section. BUN Routine 04/26/2009 6:30 PM Results f or this [employer] WORKER procedure are i n the results section. ECG 12 LEAD INPATIENT STAT 04/26/2009 6:27 PM Results for this [employer] WORKER procedure are i n the results section. HEMOGLOBIN, BLOOD Routine 04/26/2009 7:34 AM Resu lts for this [employer] WORKER procedure are i n the results section. INR/PROTIME Routine 04/26/2009 7:34 AM Results f or this [employer] WORKER procedure are i n the results section. COMPLETE BLOOD Routine 04/25/2009 6:40 PM Results for this COUNT-W/DIFF P[employer] WORKER procedure are i n the results section. ECG 12 LEAD INPATIENT STAT 04/25/2009 6:11 PM Results for this [employer] WORKER procedure are i n the results section. BEDSIDE GLUCOSE Routine 04/25/2009 5:44 PM Result s for this MONITOR POCT P[employer] WORKER procedure are i n the results section. INR/PROTIME Routine 04/25/2009 3:55 PM Results f or this [employer] WORKER procedure are i n the results section. XR KNEE LT AP AND Routine 04/25/2009 10:30 Result s for this LATERAL AM [employer] WORKER procedure are i n the results section. MRSA CULTURE Routine 04/25/2009 6:40 AM Results f or this [employer] WORKER procedure are i n the results section. BEDSIDE GLUCOSE Routine 04/25/2009 6:10 AM Result s for this MONITOR POCT P[employer] WORKER procedure are i n the results section. POTASSIUM Routine 04/25/2009 5:40 AM Results f or this [employer] WORKER procedure are i n the results section. documented in this encounter Results (ABNORMAL) INR/Protime (05/01/2009 6:05 AM P[employer] WORKER) TabbedOut Method Time Signature Prothrombin 25.5 (H) 12.6 [...] valves in the aortic position , acute IL, valvular heart disease and atrial fibril lation. Mechanical prosthetic valves, (high risk ). ? INR 2.5-3.5 Prevention of recurrent myocardial infar ct. These recommended ranges serve as guidel mk. Adjustment outside these ranges may be clinically indicated. Specimen (Source) Anatomical Collection Method Collection Time Re ceived Time Location / / Volume Laterality 05/01/2009 6:05 AM P[employer] WORKER Pradip Suarez MD LAB_1 Performing Organization Address City/State/ZIP Code Phon e Number HP CONVERSION (ABNORMAL) Hemogram/Plts/Diff (05/01/2009 6:05 AM P[employer] WORKER) TabbedOut Method Time Signature White Blood Cell 8.0 [...] - HP CONVERSION Hemoglobin Conc 36.5 gm/dL [place] RDW 14.4 11.0 - HP CONVERSION 15.0 [...] / / Volume Laterality 05/01/2009 6:05 AM P[employer] WORKER Leodan Bergeron MD LAB_1 Performing Organization Address City/[facility] Phon e Number HP CONVERSION LAB TYPE, SCREEN AND CROSSMATCH (04/30/2009 12:25 PM P[employer]ER [employer] WORKER) P athologist Signature BB BLOOD TYPE O POS No normal HP CONVERSION (BLOOD GROUP & range RH) Blood Type # [id number] HP CONVERSION Units Requested N/O BB NEG No normal HP CONVERSION ANTIBODY range SCREEN Specimen (Source) Anatomical Collection Method Collection Time Re ceived Time Location / / Volume Laterality 04/30/2009 12:25 PM P[employer] WORKER Jagdish Zaidi MD LAB_1 Performing Organization Address City/[facility] Code Phon e Number HP CONVERSION LAB TYPE, SCREEN AND CROSSMATCH (04/30/2009 10:35 AM PLASTER AND [employer] WORKER) [facility] gist Method Time Signature BB BLOOD [...] / / Volume Laterality 04/30/2009 10:35 AM P[employer] WORKER Leodan Bergeron MD LAB_[address]forming [address] Address [facility] Phon e Number HP CONVERSION (ABNORMAL) INR/Protime (04/30/2009 8:53 AM PLASTER AND [employer] WORKER) [facility] Method Time Signature Prothrombin 24.8 (H) [...] valves in the aortic position , acute IL, valvular heart disease and atrial fibril lation. Mechanical prosthetic valves, (high risk ). ? INR 2.5-3.5 Prevention of recurrent myocardial infar ct. These recommended ranges serve as guidel mk. Adjustment outside these ranges may be clinically indicated. Specimen (Source) Anatomical Collection Method Collection Time Re ceived Time Location / / Volume Laterality 04/30/2009 8:53 AM P[employer] WORKER Pradip Suarez MD LAB_1 Performing Organization [address] [facility] Phon e Number HP CONVERSION (ABNORMAL) Basic Metabolic Panel (04/30/2009 8:53 AM PLASTER AND [employer] WORKER) [facility] Method Time Signature Creatinine Serum 0.7 [...] GFR >60 >60 HP CONVERSION Am Comment: -[place] and Tyy-Zhbcjng-Ipvrmqm n reference range units: mL/min/1.73m2 Normal>60, moderate decrease 30 - 59, se meli decrease 15 - 29, renal failure <15 mL/min/1.73 m2 NOTE: Choose the eGFR result above appro priate for the race of the patient. Est GFR Non-Afr Am >60 >60 HP CONVERSI ON Specimen (Source) Anatomical Collection Method Collection Time Re ceived Time Location / / Volume Laterality 04/30/2009 8:53 AM P[employer] WORKER Leodan Bergeron MD LAB_1 Performing Organization Address City/State/ZIP Code Phon e Number HP CONVERSION (ABNORMAL) Hemogram/Plts/Diff (04/30/2009 8:53 AM PLASTER AND [employer] WORKER) [facility] gist Method Time Signature White Blood [...] - HP CONVERSION Hemoglobin Conc 36.5 gm/dL [place] RDW 15.0 11.0 - HP CONVERSION 15.0 [...] / / Volume Laterality 04/30/2009 8:53 AM P[employer] WORKER Leodan Bergeron MD LAB_1 Performing Organization Address City/[facility]/ZIP Code Phon e Number HP CONVERSION Troponin I (04/29/2009 8:29 PM PLASTER AND [employer] WORKER) P athologist Signature TROPONIN I 0.13 0.00 - 0.30 HP CONVERSION ng/mL Specimen (Source) Anatomical Collection Method Collection Time Re ceived Time Location / / Volume Laterality 04/29/2009 8:29 PM P[employer] WORKER Leodan Bergeron MD LAB_1 Performing Organization Address City/State/ZIP Code Phon e Number HP CONVERSION XR Chest 2 Views (04/29/2009 4:02 PM PLASTER AND [employer] WORKER) Anatomical Region Laterality Modality Chest, Lung Other Specimen (Source) Anatomical Location Collection Method / Collectio n Time Received Time / Laterality Volume Impressions 04/29/2009 4:02 PM P[employer]ER [employer] WORKER : Cardiac silhouette is upper normal in size. ??Pulmonary vasculature is within normal limits. ??T here is an area of diskoid atelectasis in the right midlung and min imal atelectasis or infiltrate in the left lower lobe. Lungs and pleural spaces are otherwise clear. Dictating MAINE GALLARDO Radiologist Narrative 04/29/2009 4:02 PM PLASTER AND [employer] WORKER COMPARISON: None. Procedure Note Maine Keyes MD [...] RAD GD (ABNORMAL) INR/Protime (04/29/2009 9:01 AM PLASTER AND [employer] WORKER) [facility] Method Time Signature Prothrombin 27.2 (H) [...] valves in the aortic position , acute IL, valvular heart disease and atrial fibril lation. Mechanical prosthetic valves, (high risk ). ? INR 2.5-3.5 Prevention of recurrent myocardial infar ct. These recommended ranges serve as guidel mk. Adjustment outside these ranges may be clinically indicated. Specimen (Source) Anatomical Collection Method Collection Time Re ceived Time Location / / Volume Laterality 04/29/2009 9:01 AM P[employer] WORKER Pradip Suarez MD LAB_1 Performing Organization Address [facility] Phon e Number HP CONVERSION (ABNORMAL) Hemoglobin, Blood (04/29/2009 9:01 AM P[employer]ER AND [employer] WORKER) P athologist Signature Hemoglobin 9.1 (L) 11.8 - 15.5 HP CONVERSION gm/dL Specimen (Source) Anatomical Collection Method Collection Time Re ceived Time Location / / Volume Laterality 04/29/2009 9:01 AM P[employer]ER AND [employer] WORKER Rosalina Saez MD LAB_1 Performing Organization [address] [facility] Phon e Number HP CONVERSION ECG 12 Lead Inpatient (04/29/2009 6:03 AM P[employer]ER AND [employer] WORKER) Specimen (Source) Anatomical Collection Method Collection Time Re ceived Time Location / / Volume Laterality 04/29/2009 6:03 AM P[employer]ER AND [employer] WORKER Narrative HP CONVERSION - 04/29/2009 6:03 AM PLASTER AND [employer] WORKER Sinus tachycardia Otherwise normal ECG When compared with ECG of 26-APR-2009 1 8:27, No significant change was found Agustin Guzman DO PN ECG ORDERABLES Performing Organization Address [facility] Phon e Number HP CONVERSION (ABNORMAL) INR/Protime (04/28/2009 5:27 AM PLASTER AND [employer] WORKER) Patholo gist Method Time Signature Prothrombin 24.2 [...] valves in the aortic position , acute IL, valvular heart disease and atrial fibril lation. Mechanical prosthetic valves, (high risk ). ? INR 2.5-3.5 Prevention of recurrent myocardial infar ct. These recommended ranges serve as guidel mk. Adjustment outside these ranges may be clinically indicated. Specimen (Source) Anatomical Collection Method Collection Time Re ceived Time Location / / Volume Laterality 04/28/2009 5:27 AM P[employer]ER AND [employer] WORKER Pradip Suarez MD LAB_1 Performing Organization Address City/[facility] Code Phon e Number HP CONVERSION Creatinine / GFR (04/28/2009 5:27 AM PLASTER AND [employer] WORKER) athologist Signature Creatinine 0.7 0.4 - 1.3 HP CONVERSION Serum mg/dL Est GFR >60 >60 HP CONVERSION Am Comment: -[place] and Pqc-Azisbgt-Kpbcqcf n reference range units: mL/min/1.73m2 Normal>60, moderate decrease 30 - 59, se meli decrease 15 - 29, renal failure <15 mL/min/1.73 m2 NOTE: Choose the eGFR result above appro priate for the race of the patient. Est GFR Non-Afr Am >60 >60 HP CONVERSI ON Specimen (Source) Anatomical Collection Method Collection Time Re ceived Time Location / / Volume Laterality 04/28/2009 5:27 AM P[employer] WORKER Rosalina Saez MD LAB_1 Performing Organization Address [facility] Phon e Number HP CONVERSION Electrolyte Panel (04/28/2009 5:27 AM P[employer]ER AND [employer] WORKER) P athologist Signature Sodium 140 137 - 147 HP CONVERSION mEq/L Potassium 4.1 3.5 - 5.2 HP CONVERSION mEq/L Chloride 106 98 - 110 HP CONVERSION mEq/L Bicarbonate 33 23 - 33 HP CONVERSION mmol/L Specimen (Source) Anatomical Collection Method Collection Time Re ceived Time Location / / Volume Laterality 04/28/2009 5:27 AM P[employer]ER AND [employer] WORKER Rosalina Saez MD LAB_1 Performing Organization Address [facility] Code Phon e Number HP CONVERSION (ABNORMAL) Hemoglobin, Blood (04/28/2009 5:27 AM PLASTER AND [employer] WORKER) athologist Signature Hemoglobin 9.4 (L) 11.8 - 15.5 HP CONVERSION gm/dL Specimen (Source) Anatomical Collection Method Collection Time Re ceived Time Location / / Volume Laterality 04/28/2009 5:27 AM P[employer]ER AND [employer] WORKER Rosalina Saez MD LAB_1 Performing Organization Address [facility]/ZIP Code Phon e Number HP CONVERSION BEDSIDE GLUCOSE MONITOR (04/27/2009 9:44 PM PLASTER AND [employer] WORKER) P athologist Signature Bedside Blood 192 mg/dL HP CONVERSION Glucose Test Blood Glucose * No normal HP CONVERSION Screen, range Comment 1 Blood Glucose * No normal HP CONVERSION Screen, range Comment 2 Blood Glucose * No normal HP CONVERSION Screen, range Comment 3 Specimen (Source) Anatomical Collection Method Collection Time Re ceived Time Location / / Volume Laterality 04/27/2009 9:44 PM PLASTER AND [employer] WORKER Jagdish Zaidi MD LAB_1 Performing Organization Address [facility] Phon e Number HP CONVERSION BEDSIDE GLUCOSE MONITOR (04/27/2009 5:34 PM PLASTER AND [employer] WORKER) P athologist Signature Bedside Blood 144 mg/dL HP CONVERSION Glucose Test Blood Glucose * No normal HP CONVERSION Screen, range Comment 1 Blood Glucose * No normal HP CONVERSION Screen, range Comment 2 Blood Glucose * No normal HP CONVERSION Screen, range Comment 3 Specimen (Source) Anatomical Collection Method Collection Time Re ceived Time Location / / Volume Laterality 04/27/2009 5:34 PM P[employer]ER AND [employer] WORKER Jagdish Zaidi MD LAB_1 Performing Organization Address [facility] Phon e Number HP CONVERSION US Lower Extremity Bilat Venous Doppler (04/27/2009 12:01 PM PLASTER AND [employer] WORKER) Anatomical Region Laterality Modality Vascular, Leg Other Specimen (Source) Anatomical Location Collection Method / Collectio n Time Received Time / Laterality Volume Impressions 04/27/2009 12:01 PM P[employer]ER AND [employer] WORKER : ??Negative bilateral lower extremity venous duplex ultrasound with no evidence of acute martina p venous thrombosis. ??Small calf vein thrombosis cannot be completel y excluded by this technique. Dictating GRAYSON SPARROW MD Narrative 04/27/2009 12:01 PM PLASTER AND [employer]UCCO WORKER CLINICAL HISTORY: ?? PE, looking for DVT [...] Dictating GRAYSON SPARROW MD Rosalina Saez MD [facility] BEDSIDE GLUCOSE MONITOR (04/27/2009 11:41 AM PLASTER AND [employer] WORKER) athologist Signature Bedside Blood 165 mg/dL HP CONVERSION Glucose Test Blood Glucose * No normal HP CONVERSION Screen, range Comment 1 Blood Glucose * No normal HP CONVERSION Screen, range Comment 2 Blood Glucose * No normal HP CONVERSION Screen, range Comment 3 Specimen (Source) Anatomical Collection Method Collection Time Re ceived Time Location / / Volume Laterality 04/27/2009 11:41 AM PLASTER AND [employer] WORKER Jagdish Zaidi MD LAB_1 Performing Organization Address City/State/ZIP Code Phon e Number HP CONVERSION BEDSIDE GLUCOSE MONITOR (04/27/2009 8:26 AM PLASTER AND [employer]UCC[employer] WORKER) athologist Signature Bedside Blood 170 mg/dL HP CONVERSION Glucose Test Blood Glucose * No normal HP CONVERSION Screen, range Comment 1 Blood Glucose * No normal HP CONVERSION Screen, range Comment 2 Blood Glucose * No normal HP CONVERSION Screen, range Comment 3 Specimen (Source) Anatomical Collection Method Collection Time Re ceived Time Location / / Volume Laterality 04/27/2009 8:26 AM P[employer]ER AND [employer] WORKER Jagdish Zaidi MD LAB_1 Performing Organization Address City/State/ZIP Code Phon e Number HP CONVERSION (ABNORMAL) INR/Protime (04/27/2009 5:00 AM PLASTER AND [employer]UCCO WORKER) [facility] gist Method Time Signature Prothrombin 21.2 [...] valves in the aortic position , acute IL, valvular heart disease and atrial fibril lation. Mechanical prosthetic valves, (high risk ). ? INR 2.5-3.5 Prevention of recurrent myocardial infar ct. These recommended ranges serve as guidel mk. Adjustment outside these ranges may be clinically indicated. Specimen (Source) Anatomical Collection Method Collection Time Re ceived Time Location / / Volume Laterality 04/27/2009 5:00 AM PLASTER AND [employer]UCCO WORKER Pradip Suarez MD LAB_1 Performing Organization Address [facility] Phon e Number HP CONVERSION Creatinine / GFR (04/27/2009 5:00 AM PLASTER AND [employer]UCC[employer] WORKER) athologist Signature Creatinine 0.7 0.4 - 1.3 HP CONVERSION Serum mg/dL Est GFR >60 >60 HP CONVERSION Am Comment: -[place] and Msu-Veqvtfy-Wwngrbu n reference range units: mL/min/1.73m2 Normal>60, moderate decrease 30 - 59, se meli decrease 15 - 29, renal failure <15 mL/min/1.73 m2 NOTE: Choose the eGFR result above appro priate for the race of the patient. Est GFR Non-Afr Am >60 >60 HP CONVERSI ON Specimen (Source) Anatomical Collection Method Collection Time Re ceived Time Location / / Volume Laterality 04/27/2009 5:00 AM PLASTER AND STUCCO WORKER Rosalina Saez MD LAB_1 Performing Organization Address City/[facility] Phon e Number HP CONVERSION (ABNORMAL) Electrolyte Panel (04/27/2009 5:00 AM PLASTER AND STUCCO WORKER) athologist Signature Sodium 143 137 - 147 HP CONVERSION mEq/L Potassium 4.1 3.5 - 5.2 HP CONVERSION mEq/L Chloride 112 (H) 98 - 110 HP CONVERSION mEq/L Bicarbonate 30 23 - 33 HP CONVERSION mmol/L Specimen (Source) Anatomical Collection Method Collection Time Re ceived Time Location / / Volume Laterality 04/27/2009 5:00 AM PLASTER AND STUCCO WORKER Rosalina Saez MD LAB_[address] [facility] Phon e Number HP CONVERSION (ABNORMAL) Hemoglobin, Blood (04/27/2009 5:00 AM PLASTER AND STUCCO WORKER) athologist Signature Hemoglobin 9.9 (L) 11.8 - 15.5 HP CONVERSION gm/dL Specimen (Source) Anatomical Collection Method Collection Time Re ceived Time Location / / Volume Laterality 04/27/2009 5:00 AM PLASTER AND STUCCO WORKER Pradip Suarez MD LAB_[address] [facility] Phon e Number HP CONVERSION BEDSIDE GLUCOSE MONITOR (04/26/2009 9:16 PM PLASTER AND STUCCO WORKER) athologist Signature Bedside Blood 212 mg/dL HP CONVERSION Glucose Test Blood Glucose * No normal HP CONVERSION Screen, range Comment 1 Blood Glucose * No normal HP CONVERSION Screen, range Comment 2 Blood Glucose * No normal HP CONVERSION Screen, range Comment 3 Specimen (Source) Anatomical Collection Method Collection Time Re ceived Time Location / / Volume Laterality 04/26/2009 9:16 PM PLASTER AND STUCCO WORKER Jagdish Zaidi MD LAB_[address] [facility] Phon e Number HP CONVERSION BEDSIDE GLUCOSE MONITOR (04/26/2009 7:35 PM PLASTER AND STUCCO WORKER) athologist Signature Bedside Blood 152 mg/dL HP CONVERSION Glucose Test Blood Glucose * No normal HP CONVERSION Screen, range Comment 1 Blood Glucose * No normal HP CONVERSION Screen, range Comment 2 Blood Glucose * No normal HP CONVERSION Screen, range Comment 3 Specimen (Source) Anatomical Collection Method Collection Time Re ceived Time Location / / Volume Laterality 04/26/2009 7:35 PM PLASTER AND STUCCO WORKER Jagdish Zaidi MD LAB_[address] [facility] Phon e Number HP CONVERSION CT Angio Chest W IV Cont PE Study (04/26/2009 7:24 PM PLASTER AND STUCCO WORKER) Anatomical Region Laterality Modality Chest, Lung, Vascular Other Specimen (Source) Anatomical Location Collection Method / Collectio n Time Received Time / Laterality Volume Impressions 04/26/2009 7:24 PM PLASTER AND STUCCO WORKER : ??Multiple bilateral pulmonary emboli. ??Critical results called to AGUSTIN GUZMAN at 7:35 p.m. on 04/26/2009. Dictating CONNOR HERNDON RADIOLOGIST Narrative 04/26/2009 7:24 PM PLASTER AND STUCCO WORKER TECHNIQUE: ??CT of the chest with 100mL [...] DO RAD CT BUN (04/26/2009 6:30 PM PLASTER AND STUCCO WORKER) athologist Signature Blood Urea 9 5 - 26 HP CONVERSION Nitrogen mg/dL Specimen (Source) Anatomical Collection Method Collection Time Re ceived Time Location / / Volume Laterality 04/26/2009 6:30 PM PLASTER AND STUCCO WORKER Agustin Guzman DO LAB_1 Performing Organization Address City/State/ZIP Code Phon e Number HP CONVERSION Creatinine / GFR (04/26/2009 6:30 PM PLASTER AND STUCCO WORKER) athologist Signature Creatinine 0.8 0.4 - 1.3 HP CONVERSION Serum mg/dL Est GFR >60 >60 HP CONVERSION Am Comment: -[place] and Uvg-Ofhovmx-Tpnbzzs n reference range units: mL/min/1.73m2 Normal>60, moderate decrease 30 - 59, se meli decrease 15 - 29, renal failure <15 mL/min/1.73 m2 NOTE: Choose the eGFR result above appro priate for the race of the patient. Est GFR Non-Afr Am >60 >60 HP CONVERSI ON Specimen (Source) Anatomical Collection Method Collection Time Re ceived Time Location / / Volume Laterality 04/26/2009 6:30 PM PLASTER AND STUCCO WORKER Agustin Guzman DO LAB_1 Performing Organization Address City/State/ZIP Code Phon e Number HP CONVERSION (ABNORMAL) Hemogram/Plts/Diff (04/26/2009 6:30 PM PLASTER AND STUCCO WORKER) [facility] gist Method Time Signature White Blood [...] - HP CONVERSION Hemoglobin Conc 36.5 gm/dL [place] RDW 14.7 11.0 - HP CONVERSION 15.0 [...] / / Volume Laterality 04/26/2009 6:30 PM PLASTER AND STUCCO WORKER Agustin A Esala DO LAB_[address] [facility]/ZIP Code Phon e Number HP CONVERSION Electrolyte Panel (04/26/2009 6:30 PM PLASTER AND STUCCO WORKER) P athologist Signature Sodium 143 137 - 147 HP CONVERSION mEq/L Potassium 3.7 3.5 - 5.2 HP CONVERSION mEq/L Chloride 107 98 - 110 HP CONVERSION mEq/L Bicarbonate 26 23 - 33 HP CONVERSION mmol/L Specimen (Source) Anatomical Collection Method Collection Time Re ceived Time Location / / Volume Laterality 04/26/2009 6:30 PM PLASTER AND STUCCO WORKER Agustin Guzman DO LAB_[address] [facility] Code Phon e Number HP CONVERSION ECG 12 Lead Inpatient (04/26/2009 6:27 PM PLASTER AND STUCCO WORKER) Specimen (Source) Anatomical Collection Method Collection Time Re ceived Time Location / / Volume Laterality 04/26/2009 6:27 PM PLASTER AND STUCCO WORKER Narrative HP CONVERSION - 04/26/2009 6:27 PM PLASTER AND STUCCO WORKER Normal sinus rhythm Normal ECG When compared with ECG of 25-APR-2009 1 8:11, No significant change was found Required Not PN ECG ORDERABLES Performing Organization Address [facility] Code Phon e Number HP CONVERSION (ABNORMAL) INR/Protime (04/26/2009 7:34 AM PLASTER AND STUCCO WORKER) Patholo gist Method Time Signature Prothrombin 15.8 [...] valves in the aortic position , acute IL, valvular heart disease and atrial fibril lation. Mechanical prosthetic valves, (high risk ). ? INR 2.5-3.5 Prevention of recurrent myocardial infar ct. These recommended ranges serve as guidel mk. Adjustment outside these ranges may be clinically indicated. Specimen (Source) Anatomical Collection Method Collection Time Re ceived Time Location / / Volume Laterality 04/26/2009 7:34 AM PLASTER AND STUCCO WORKER Pradip Suarez MD LAB_1 Performing Organization Address City/State/ZIP Code Phon e Number HP CONVERSION (ABNORMAL) Hemoglobin, Blood (04/26/2009 7:34 AM PLASTER AND STUCCO WORKER) P athologist Signature Hemoglobin 10.2 (L) 11.8 - 15.5 HP CONVERSION gm/dL Specimen (Source) Anatomical Collection Method Collection Time Re ceived Time Location / / Volume Laterality 04/26/2009 7:34 AM PLASTER AND STUCCO WORKER Pradip Suarez MD LAB_1 Performing Organization Address City/State/ZIP Code Phon e Number HP CONVERSION (ABNORMAL) Hemogram/Plts/Diff (04/25/2009 6:40 PM PLASTER AND STUCCO WORKER) Patholo gist Method Time Signature White Blood [...] - HP CONVERSION Hemoglobin Conc 36.5 gm/dL [place] RDW 14.7 11.0 - HP CONVERSION 15.0 [...] / / Volume Laterality 04/25/2009 6:40 PM PLASTER AND STUCCO WORKER Maday Burks MD LAB_1 Performing Organization [address] [facility] Phon e Number HP CONVERSION ECG 12 Lead Inpatient (04/25/2009 6:11 PM PLASTER AND STUCCO WORKER) Specimen (Source) Anatomical Collection Method Collection Time Re ceived Time Location / / Volume Laterality 04/25/2009 6:11 PM PLASTER AND STUCCO WORKER Narrative HP CONVERSION - 04/25/2009 6:11 PM PLASTER AND STUCCO WORKER Normal sinus rhythm Normal ECG No previous ECGs available Maday Burks MD PN ECG ORDERABLES Performing Organization Address [facility] Phon e Number HP CONVERSION BEDSIDE GLUCOSE MONITOR (04/25/2009 5:44 PM PLASTER AND STUCCO WORKER) P athologist Signature Bedside Blood 170 mg/dL HP CONVERSION Glucose Test Blood Glucose * No normal HP CONVERSION Screen, range Comment 1 Blood Glucose * No normal HP CONVERSION Screen, range Comment 2 Blood Glucose * No normal HP CONVERSION Screen, range Comment 3 Specimen (Source) Anatomical Collection Method Collection Time Re ceived Time Location / / Volume Laterality 04/25/2009 5:44 PM PLASTER AND STUCCO WORKER Jagdish Zaidi MD LAB_1 Performing Organization Address [facility] Phon e Number HP CONVERSION INR/Protime (04/25/2009 3:55 PM PLASTER AND STUCCO WORKER) Analysis Performed At Patho logist Time Signature [...] valves in the aortic position , acute IL, valvular heart disease and atrial fibril lation. Mechanical prosthetic valves, (high risk ). ? INR 2.5-3.5 Prevention of recurrent myocardial infar ct. These recommended ranges serve as guidel mk. Adjustment outside these ranges may be clinically indicated. Specimen (Source) Anatomical Collection Method Collection Time Re ceived Time Location / / Volume Laterality 04/25/2009 3:55 PM PLASTER AND STUCCO WORKER Pradip Suarez MD LAB_1 Performing Organization Address City/State/ZIP Code Phon e Number HP CONVERSION XR Knee Lt AP And Lateral (04/25/2009 10:30 AM PLASTER AND STUCCO WORKER) Anatomical Region Laterality Modality Lower Extremity, Knee Other Specimen (Source) Anatomical Location Collection Method / Collectio n Time Received Time / Laterality Volume Narrative 04/25/2009 10:30 AM PLASTER AND STUCCO WORKER COMPARISON: 07/06/2008 FINDINGS: Left knee 2 views. ??There are new postoperative changes of left total knee arthroplasty. ??Alignmen t is normal. The medial joint space appears narrowed, though this may be positional. ?? There is no fracture. ??Surgical drain and skin stap les are present. Dictating MARBIN BOX MD Procedure Note Marbin Vidales - [...] RAD GD MRSA Culture (04/25/2009 6:40 AM PLASTER AND STUCCO WORKER) Analysis Performed At [facility] Time Signature Culture Mrsa SEE TEXT HP CONVERSION Screen Comment: Patient: YAZ SANTAMARIA Culture, MRSA Screen ?Collected: ??[id number] Source: JULES ? Processed: ??[id number] ??[id number] ? JULES Final Report ------ ?[id number] ??[id number] No Methicillin resistant Staph aureus is olated. Specimen (Source) Anatomical Collection Method Collection Time Re ceived Time Location / / Volume Laterality 04/25/2009 6:40 AM PLASTER AND STUCCO WORKER Shanice Boyd MD LAB_1 Performing Organization Address City/[facility] Code Phon e Number HP CONVERSION BEDSIDE GLUCOSE MONITOR (04/25/2009 6:10 AM PLASTER AND STUCCO WORKER) P athologist Signature Bedside Blood 118 mg/dL HP CONVERSION Glucose Test Blood Glucose * No normal HP CONVERSION Screen, range Comment 1 Blood Glucose * No normal HP CONVERSION Screen, range Comment 2 Blood Glucose * No normal HP CONVERSION Screen, range Comment 3 Specimen (Source) Anatomical Collection Method Collection Time Re ceived Time Location / / Volume Laterality 04/25/2009 6:10 AM PLASTER AND STUCCO WORKER Jagdish Zaidi MD LAB_1 Performing Organization Address City/[facility] Code Phon e Number HP CONVERSION Potassium (04/25/2009 5:40 AM PLASTER AND STUCCO WORKER) athologist Signature Potassium 4.2 3.5 - 5.2 HP CONVERSION mEq/L Specimen (Source) Anatomical Collection Method Collection Time Re ceived Time Location / / Volume Laterality 04/25/2009 5:40 AM PLASTER AND STUCCO WORKER Jagdish Zaidi MD LAB_1 Performing Organization Address [facility] Phon e Number HP CONVERSION documented in this encounter Visit Diagnoses Not on filedocumented in this encounter Care Teams Die Welder Relationship Specialty Start Date End Date Unassigned, Provider PCP - General 03/27/00 06/16/[address] [place] [address] documented as of this encounter
--- OUTSIDE RECORDS SUMMARY | 2022-01-21 08:47 | XMS_ITS | Encounter Summary ---
:1955 Author Organization [facility] Address [address] [address] Care Team Providers Name Role Phone Denise Harris MD Primary Care Provider Encounter Details Date Type Department Care Team Description 02/02/2001 Therapy [facility] Physical T herAnna Cabrera [address] [place] [address] Social History Tobacco Use Types Packs/Day Years Used Date Smoking Tobacco: Never Assessed Sex Assigned at Date Recorded Not on file documented as of this encounter Plan of Treatment Not on filedocumented as of this encounter Visit Diagnoses Not on filedocumented in this encounter Care Teams Game Trapper Relationship Specialty Start Date End Date Denise Harris MD PCP - General 06/17/10 10/05/[address] [place] [address] documented as of this encounter
--- OUTSIDE RECORDS SUMMARY | 2022-01-21 08:47 | XMS_ITS | Encounter Summary ---
:1955 Author Organization [facility] Address [address], [place] [address] Care Team Providers Name Role Phone Denise Harris MD Primary Care Provider Encounter Details Date Type Department Care Team Description 04/25/2009 PN Conversion Only OTHER CONVERSION [address] [place] [address] Social History Tobacco Use Types Packs/Day Years Used Date Smoking Tobacco: Former Alcohol Use Standard Drinks/Week Comments No 0 (1 standard drink = 0.6 oz pure alcoho l) Recovering alcoholic Sex Assigned at Date Recorded Not on file documented as of this encounter Plan of Treatment Not on filedocumented as of this encounter Visit Diagnoses Not on filedocumented in this encounter Care Teams Asset Management Analyst Relationship Specialty Start Date End Date Denise Harris MD PCP - General 06/17/10 10/05/[address] [facility] [place] [address] documented as of this encounter
--- OUTSIDE RECORDS SUMMARY | 2022-01-21 08:47 | XMS_ITS | Encounter Summary ---
:1955 Author Organization [facility] Address [address] [address] Care Team Providers Name Role Phone Denise Harris MD Primary Care Provider Encounter Details Date Type Department Care Team Description 11/28/1999 Therapy [facility] Physical T herAnna Cabrera [address] [place] [address] Social History Tobacco Use Types Packs/Day Years Used Date Smoking Tobacco: Never Assessed Sex Assigned at Date Recorded Not on file documented as of this encounter Plan of Treatment Not on filedocumented as of this encounter Visit Diagnoses Not on filedocumented in this encounter Care Teams Sheet Taker Relationship Specialty Start Date End Date Denise Harris MD PCP - General 06/17/10 10/05/[address] [place] [address] documented as of this encounter
--- OUTSIDE RECORDS SUMMARY | 2022-01-21 08:47 | XMS_ITS | Encounter Summary ---
:1955 Author Organization [facility] Address [address] [address] Care Team Providers Name Role Phone Denise Harris MD Primary Care Provider Encounter Details Date Type Department Care Team Description 09/07/2001 Therapy [facility] Physical T herapy Anna Mohan [address] [place] [address] Social History Tobacco Use Types Packs/Day Years Used Date Smoking Tobacco: Never Assessed Sex Assigned at Date Recorded Not on file documented as of this encounter Plan of Treatment Not on filedocumented as of this encounter Visit Diagnoses Not on filedocumented in this encounter Care Teams Manager Food Relationship Specialty Start Date End Date Denise Harris MD PCP - General 06/17/10 10/05/[address] [place] [address] documented as of this encounter
--- OUTSIDE RECORDS SUMMARY | 2022-01-21 08:47 | XMS_ITS | Encounter Summary ---
:1955 Author Organization [facility] Address [address] [address] Care Team Providers Name Role Phone Denise Harris MD Primary Care Provider Encounter Details Date Type Department Care Team Description 03/24/2009 PN Conversion Only [facility] CONV [address] [facility] [place] [address] Social History Tobacco Use Types Packs/Day Years Used Date Smoking Tobacco: Former Alcohol Use Standard Drinks/Week Comments No 0 (1 standard drink = 0.6 oz pure alcoho l) Recovering alcoholic Sex Assigned at Date Recorded Not on file documented as of this encounter Plan of Treatment Not on filedocumented as of this encounter Visit Diagnoses Not on filedocumented in this encounter Care Teams Seamer Elastic Band Relationship Specialty Start Date End Date Denise Harris MD PCP - General 06/17/10 10/05/[address] [place] [address] documented as of this encounter
--- OUTSIDE RECORDS SUMMARY | 2022-01-21 08:48 | XMS_ITS | Encounter Summary ---
:1955 Author Organization [facility] Address [address] [place] [address] Care Team Providers Name Role Phone Denise Harris Primary Care Provider Reason for Visit (Routine) - Closed Specialty Diagnoses / Procedures Referred By Contact Refer red To Contact Cardiology Diagnoses 01/17-sent reminder ltr to pt w/directions to [facility] for 48-hr holter monitor appt (pt was offered an earlier date, but declined) [facility] Procedures HOLTER MONITOR [address] [facility] [address] [place] [phone] Phone: Fax: Referral ID Status Reason Start Date Expiration Date Visits Requ ested Visits Authorized [id number] Closed 01/30/2015 01/30/2016 1 1 Encounter Details Date Type Department Care Team Description 01/31/2015 Hospital Encounter [facility] [place] MD Man[place] [address] [facility] [address] [address] [place], [place] [phone] [address] Social History Tobacco Use Types Packs/Day Years [...] were given and all questions were answered. CARPENTER documented in this encounter Plan of Treatment Not on filedocumented as of this encounter Procedures Procedure Name Priority Date/Time Associated Diagnosis Comme nts HOLTER MONITOR 48 HOUR Routine 02/06/2015 Shortness of breat h Results for this - ADULT procedure are i n the results section . documented in this encounter Results Holter Monitor 48 hour - Adult (02/06/2015) Narrative RADIANT - 02/06/2015 [facility] [address] [facility] [address] [facility] [phone] 01/31/2015 Patient: ??Yaz Rosangela Chart: [id number] : ??1955 Age: ??59 year old Sex: ??female Procedure: ??Holter Monitor Placed: plea se see scanned document for result once interpretation is comple mando. Leading Firefighter performing hook-up: ??Nuvia Mcclellan Amna Messer MD CV CARDIAC SERVICES ORDERABL ES Performing Organization Address City/State/ZIP Code Phon e Number RADIANT documented in this encounter Visit Diagnoses Diagnosis Shortness of breath documented in this encounter Care Teams Customer Facilities Supervisor Relationship Specialty Start Date End Date Denise Harris PCP - General Internal Medicine 01/17/15 [facility] [address] [place] [address] documented as of this encounter
--- OUTSIDE RECORDS SUMMARY | 2022-01-21 08:48 | XMS_ITS | Encounter Summary ---
:1955 Author Organization [facility] Address [address] [place] [address] Care Team Providers Name Role Phone Denise Harris Primary Care Provider Yuly Anoop Unavailable Inez Peck See Luis Antonio GARZA Unavailable Reason for Visit Reason Onset Date Comments Pre Visit Planning - Done 10/26/2020 Encounter Details Date Type Department Care Team Description 10/26/2020 PRE VISIT [facility] Inez Peck Pre Vi sit Planning - Urology Clinic MD Luis Antonio Done [place] [address] [facility] [address] [place], [place] [address] [phone] Social History Tobacco Use Types Packs/Day Years [...] on filedocumented in this encounter Care Teams Paper Baler Relationship Specialty Start Date End Date Denise Harris PCP - General Internal Medicine 01/17/15 [facility] [address] [place] [address] Anoop Emery Referring Physician Family Medicine 09/15/20 [facility] [address] [place] [address] Inez Peck MD MD Urology 09/15/[address] [place] [address] [address] [place] [address] documented as of this encounter
--- OUTSIDE RECORDS SUMMARY | 2022-01-21 08:48 | XMS_ITS | Encounter Summary ---
:1955 Author Organization [facility] Address [address] [place] [address] Care Team Providers Name Role Phone Denise [...] on filedocumented in this encounter Care Teams [place] Food Maker Hand Relationship Specialty Start Date End Date Denise Harris PCP - General Internal Medicine 01/17/15 [facility] [address] [place] [address] documented as of this encounter
--- OUTSIDE RECORDS SUMMARY | 2022-01-21 08:48 | XMS_ITS | Encounter Summary ---
:1955 Author Organization [facility] Address [address] [place] [address] Care Team Providers Name Role Phone Denise Harris Primary Care Provider Reason for Visit Reason Comments Heart Problem NEW PATIENT* appt for newly diagnosed diastolic dysfunction. Encounter Details Date Type Department Care Team Description 02/06/2015 Office Visit [facility] Bobby Frey ic dysfunction; [facility] Jhonny Loza MD Palpitations [facility] [address] [place] [address] [place] [address] [place] [phone] [address] Social History Tobacco Use Types Packs/Day [...] Comments Blood Pressure 124/74 02/06/2015 2:50 PM ELECTRONICS INSTRUCTOR Pulse 66 02/06/2015 2:50 PM ELECTRONICS INSTRUCTOR Temperature - - Respiratory Rate - - Oxygen Saturation - - Inhaled Oxygen Concentration - - Weight 119.7 kg (264 lb) 02/06/2015 2:50 PM ELECTRONICS INSTRUCTOR Height 175.3 cm (5' 9) 02/06/2015 2:50 PM ELECTRONICS INSTRUCTOR Body Mass Index 38.99 02/06/2015 2:50 PM ELECTRONICS INSTRUCTOR documented in this encounter Progress Notes Jhonny [...] Jhonny Frey MD cc: [place] [address] JHONNY FREY MD [place]: al Name: YAZ COUGHLIN MRN: [id number] Account: [id number] : 1955 Service Date: 02/06/2015 Document: [id number] TRONICS INSTRUCTOR Jhonny Frey MD - 02/06/2015 5:34 PM [...] Take by mouth 2 times daily ??? [place]-3 Fatty Acids (OMEGA 3 PO) Take by [...] No referring provider defined for this encounter. TRONICS INSTRUCTOR documented in this encounter Plan of [...] Palpitations documented in this encounter Care Teams Truck Driver Teamster Relationship Specialty Start Date End Date Denise Harris PCP - General Internal Medicine 01/17/15 [facility] [address] [place] [address] documented as of this encounter
--- OUTSIDE RECORDS SUMMARY | 2022-01-21 08:48 | XMS_ITS | Encounter Summary ---
:1955 Author Organization [facility] Address [address] [place] [address] Care Team Providers Name Role Phone Denise Harris Primary Care Provider Anoop Emery Unavailable Inez Peck MD Unavailable Reason for Referral MACHINERY ENGINEER (Routine) - Closed Specialty Diagnoses / Procedures Referred By Contact Refer red To Contact Diagnoses Pelvic floor dysfunction in female Generic External Data Department Referral ID Status Reason Start Date Expiration Date Visits Requ ested Visits Authorized [id number] Closed 09/15/2020 09/15/2021 1 1 Encounter Details [...] Type Priority Associated Diagnoses Order S alanadule MACHINERY ENGINEER REFERRAL Referral Routine Pelvic floor dysfunction in Ordered: 09/15/2020 female documented as of this encounter Visit Diagnoses Diagnosis Pelvic floor dysfunction in female - Marleen skyler documented in this encounter Care Teams Application Development Team Lead Relationship Specialty Start Date End Date Denise Harris PCP - General Internal Medicine 01/17/15 [facility] [address] [place] [address] Anoop Emery Referring Physician Family Medicine 09/15/[address] [address] Inez Peck MD MD Urology 09/15/[address] [place] [address] documented as of this encounter
--- OUTSIDE RECORDS SUMMARY | 2022-01-21 08:48 | XMS_ITS | Encounter Summary ---
:1955 Author Organization [facility] Address [address] [place] [address] Care Team Providers Name Role Phone Denise Harris Primary Care Provider Reason for Referral Specialty Diagnoses / Procedures Referred By Contact Refer red To Contact Jeanine Resendiz DPM, Podiatry/Foot and An kle Surgery [address] [place] [address] Referral ID Status Reason Start Date Expiration Date Visits Requ ested Visits Authorized TECHNICIAN Reason for Visit Reason Comments Ingrown Toenail Pain Ingrown Toenail Pain Encounter Details Date Type Department Care Team Description 04/08/2018 Office Visit [facility] Jeanine Resendiz, Foot pa in, bilateral (Primary Dx); Clinic Luis BONILLA, Podiatry/Foot Ingrown nail of great toe of left foot; [id number] E and Ankle Surgery Ingrown nail of second toe of left foot; [place] [address] Sukhi dixon of both feet; [phone] [address] Plantar fasciitis, bilateral; [place], [place] Achilles tend onitis, bilateral [address] (Wo [...] Comments Blood Pressure 120/62 04/08/2018 9:37 AM TOOL TECHNICIAN Pulse - - Temperature - - Respiratory Rate - - Oxygen Saturation - - Inhaled Oxygen Concentration - - Weight 106.8 kg (235 lb 6.4 oz) 04/08/2018 9:37 AM TOOL TECHNICIAN Height 176 cm (5' 9.29) 04/08/2018 9:37 AM TOOL TECHNICIAN Body Mass Index 34.47 04/08/2018 9:37 AM TOOL TECHNICIAN documented in this encounter Patient Instructions Patient InstructionsMimagiJonathan fields - 04/08/2018 9:30 AM CST Thank you for choosing [facility]! DR. RESENDIZ'S CLINIC SCHEDULE FRIDAY AM - [place] FRIDAY - [place] [address] [facility] [address] JV Davila [address] [place] [address] / FX [phone] / FX [phone] FRIDAY - [place] FRIDAY AM - WOUND [facility]ENTER [address] Angelica [address]man [address] [place] [address] JV Zamora [address] / FX [phone] FRIDAY PM - [place] SCHEDULE SURGERY: [phone] BILLING QUESTIONS: [phone] JV Elizabeth [address] AFTER HOURS: [phone] / FX [phone] APPOINTMENTS: [phone] Consumer [employer]in Line (CPL) [phone] DIABETES AND YOUR FEET Diabetes can result [...] 2000 IU daily), Alpha-Lipoic Acid (600-1800mg daily), Ykzvgu-T-Bfefblrtx (500-1000mg TID, L-methyl folate (1500mcgdaily) Metformin can [...] trim your own toenails contact [facility] ([phone]) or [facility] ([phone]). THINGS TO AVOID DOING 1. Do not [...] one of these contacts for more information: [facility] Rika Lew [phone] (Travels to your home) [facility] [phone] (Travels to your home) Abhilash Weathers DPM [address] [place] [address] [facility] [phone] (Travels to your home) [facility] [address] [place] [address] Footworks [phone] [facility] Kailyn Duvall, [place] [address] [place] [address] [facility] [phone] [facility] [phone] [facility] (does not take BCBS) [facility] [phone] Body Mass Index (BMI) Many things can [...] and getting you back on your feet. TECHNICIAN documented in this encounter Progress Notes Jeanine Resendiz DPM, Podiatry/Foot and Ankle Surgery - 04/08/2018 9:30 AM TOOL TECHNICIAN PATIENT HISTORY: Yaz Multani is a 62 [...] have care done by Dr. Brown in [place]. Review of Systems: Patient denies fever, chills, [...] tablets twice daily, Disp: , Rfl: ??? [place]-3 Fatty Acids (OMEGA 3 PO), Take by [...] tendonitis, bilateral PLAN: [facility]. The potential causes and nature of plantar [...] Foot pain , bilateral PLATE SIMPLE SINGLE TOOL TECHNICIAN Ingrown nail of great toe of left foot Ingrown nail of second toe of left foot Pes planus of liudmila th feet Plantar fasciitis, bilateral Achilles tendonitis, bilateral HC REMOVAL OF NAIL Routine 04/08/2018 10:00 AM Foot pain , bilateral PLATE SIMPLE SINGLE TOOL TECHNICIAN Ingrown nail of great toe of left [...] bilateral documented in this encounter Care Teams Crown Ceramist Relationship Specialty Start Date End Date Denise Harris PCP - General Internal Medicine 01/17/15 [facility] [address] [place] [address] documented as of this encounter
--- OUTSIDE RECORDS SUMMARY | 2022-01-21 08:48 | XMS_ITS | Encounter Summary ---
:1955 Author Organization [facility] Address [address] [place] [address] Care Team Providers Name Role Phone Denise Harris Primary Care Provider Reason for Visit Reason Onset Date Comments Results 02/06/2015 [facility] 01-31-15 Encounter Details Date Type Department Care Team Description 02/06/2015 Telephone [facility] Shante, Results ([facility] Svetlana Loza MD 01-31-15 ) [place] [address] [place], [place] [phone] [address] (Wo rk) Social History Tobacco Use [...] set up monitor. Ric CARDOSO 11:33 AM UE MAKER Telephone Encounter - Mulu Hugo RN - 02/07/2015 5:04 PM CST Spoke to to patient reviewed Dr. Frey's recommendations. I will have Cardiopulmonary or scheduling call her tomorrow to set up monitor. Ric RN 5:05 PM UE MAKER Telephone Encounter - Mulu Hugo RN - 02/07/2015 11:52 AM CST Left message for patient to call back to review. Ric CARDOSO 11:53 AM UE MAKER Telephone Encounter - Svetlana Frey MD - 02/06/2015 5:36 PM PLAQUE MAKER Please call patient and let her know holter was benign and we have ordered mobile telemetry. Please communicate the need for hypoallergenic contacts to the telemetry people UE MAKER documented in this encounter Plan of Treatment Not on filedocumented as of this encounter Visit Diagnoses Not on filedocumented in this encounter Care Teams Line Up Worker Relationship Specialty Start Date End Date Denise Harris PCP - General Internal Medicine 01/17/15 [facility] [address] [place] [address] documented as of this encounter
--- OUTSIDE RECORDS SUMMARY | 2022-01-21 08:48 | XMS_ITS | Encounter Summary ---
:1955 Author Organization [facility] Address [address] [place] [address] Care Team Providers Name Role Phone Denise Harris Primary Care Provider Anoop Emery Unavailable Inez Peck MD Unavailable Encounter Details Date Type Department Care Team Description 09/14/2020 Medical Correspondence [facility] Scan, CLINIC REFERRAL Health Info [facility] Non-Provider [facility]ICS [address] [place] [phone] Social History Tobacco Use Types Packs/Day [...] on filedocumented in this encounter Care Teams House Furnishings Supervisor Relationship Specialty Start Date End Date Denise Harris PCP - General Internal Medicine 01/17/15 [facility] [address] [place] [address] Anoop Emery Referring Physician Family Medicine 09/15/20 [facility] [address] [place] [address] Inez Peck MD MD Urology 09/15/[address] [place] [phone] documented as of this encounter
--- OUTSIDE RECORDS SUMMARY | 2022-01-21 08:48 | XMS_ITS | Encounter Summary ---
:1955 Author Organization [facility] Address [address] [place] [address] Care Team Providers Name Role Phone Denise [...] on filedocumented in this encounter Care Teams Ticket Collector Relationship Specialty Start Date End Date Denise Harris PCP - General Internal Medicine 01/17/15 [facility] [address] [place] [address] Anoop Emery Referring Physician Family Medicine 09/15/20 [facility] [address] [place] [address] Inez Peck MD MD Urology 09/15/[address] [place] [address] [address] [place], [place] [address] documented as of this encounter
--- OUTSIDE RECORDS SUMMARY | 2022-01-21 08:48 | XMS_ITS | Encounter Summary ---
:1955 Author Organization [facility] Address [address] [place] [address] Care Team Providers Name Role Phone Denise Harris Primary Care Provider Anoop Emery Unavailable Inez Peck MD Unavailable Reason for Referral Rehab Therapy Physical Therapy (Routine) - Closed Specialty Diagnoses / Procedures Referred By Contact Refer red To Contact Diagnoses Abnormal defecation Fibromyalgia Myalgia of pelvic floor High-tone pelvic floor dysfunction Inez Peck MD [address] [facility] [address] [place], [place] [address] Referral ID Status Reason Start Date Expiration Date Visits Requ ested Visits Authorized [id number] Closed 11/02/2020 11/02/2021 1 1 Reason for Visit Reason Comments Consult Pelvic floor dysfunction ULTIMATE HOOPS SCOREBOARD OPERATOR (Routine) - Closed Specialty Diagnoses / Procedures Referred By Contact Refer red To Contact Diagnoses Pelvic floor dysfunction in female Generic External Data Department Referral ID Status Reason Start Date Expiration Date Visits Requ ested Visits Authorized [id number] Closed 09/15/2020 09/15/2021 1 1 Encounter Details Date Type Department Care Team Description 11/02/2020 Office Visit [facility] Mable Emery [facility] [address] [place] [address] Abnormal defecation (Primary Dx); Urology Clinic Inez Peck MD [address] [facility] [address] [place], [place] [address] Fibromyalgia; [place] Myalgia of pelvic floor; 9[address] [facility] High-tone pelvic floor dysfu [place]ction [address] [place] [address] Social History Tobacco Use Types [...] 2:15 PM CDT Websites with free information: [place] [employer] patient website: www.voicesforpfd.org Total Control Program: www.totalcontrolprogram.com Pelvic floor physical therapy with internal myofascial release at [facility] Leonela Meadeerson [phone] It was a pleasure meeting with you [...] November 02, 2020 Referring Provider: [place] [address] Primary Care Provider: Denise Harris Assessment & Plan Abnormal defecation She has had defecography in the past at [facility] that shows an non relaxing PT discussed [...] spent in reviewing her GI notes from [facility] and her defecography, direct patient care and coordination of care Inez Peck MD MPH (she/her/hers) College Associate of Urology [facility] HPI: Yaz Mlutani is a 65 year old [place] female who presents for evaluation of her pelvicfloor symptoms. She has a long standing history of defecatory dysfunction 09/2017 DR Alfaro [facility] 01/2018 MR proctogram with abdnormal defecation with [...] Gatherings with Friends and Family: ??? Attends Nondenominational Services: ??? Active Member of Clubs or [...] Multiple Vitamins-Minerals (WOMENS DAILY FORMULA PO) ??? [place]-3 Fatty Acids (OMEGA 3 PO) ??? pramipexole [...] times daily Two tablets twice daily ??? [place]-3 Fatty Acids (OMEGA 3 PO) Take by [...] Name Type Priority Associated Diagnoses [facility] Referral Routine Abnormal defeca [...] documented as of this encounter Care Teams Brokerage Clerk Relationship Specialty Start Date End Date Denise Harris PCP - General Internal Medicine 01/17/15 [facility] [address] [place] [address] Anoop Emery Referring Physician Family Medicine 09/15/20 [facility] [address] [place] [address] Inez Peck MD MD Urology 09/15/[address] [place] [id number] documented as of this encounter
--- OUTSIDE RECORDS SUMMARY | 2022-01-21 08:48 | XMS_ITS | Encounter Summary ---
:1955 Author Organization [facility] Address [address] [place] [address] Care Team Providers Name Role Phone Denise Harris Primary Care Provider Encounter Details Date Type Department Care Team Description 01/17/2015 Orders Only [facility] Amna Messer Sh ortness of breath Center (Primary Dx) [address] [facility] [address] [place] [id number] Social History Tobacco Use Types Packs/Day Years Used Date Smoking Tobacco: Never Assessed Sex Assigned at Date Recorded Female 10/30/2020 4:00 PM CDT documented as of this encounter Plan of Treatment Not on filedocumented as of this encounter Results Holter Monitor 48 hour - Adult (02/06/2015) Narrative [facility] - 02/06/2015 [facility] [address] [facility] [address] [facility] [address] 01/31/2015 Patient: ??Yaz Adames Chart: [id number] : ??1955 Age: ??59 year old Sex: ??female Procedure: ??Holter Monitor Placed: plea se see scanned document for result once interpretation is comple mando. Psychiatric Mental Health Nurse performing hook-up: ??Nuvia Mcclellan Amna Messer MD CV CARDIAC SERVICES ORDERABL ES Performing Organization Address City/State/ZIP Code Phon e Number RADIANT documented in this encounter Visit Diagnoses Diagnosis Shortness of breath - Primary Shortness of breath documented in this encounter Care Teams Restrictive Preparation Operator Relationship Specialty Start Date End Date Denise Harris PCP - General Internal Medicine 01/17/15 [facility] [address] [place] [address] documented as of this encounter
--- OUTSIDE RECORDS SUMMARY | 2022-01-21 08:48 | XMS_ITS | Encounter Summary ---
:1955 Author Organization [facility] Address [address] [place] [address] Care Team Providers Name Role Phone Denise Harris Primary Care Provider Reason for Visit Reason Onset Date Comments Previsit 02/01/[address] jah waters on 02/06/15 Encounter Details Date Type Department Care Team Description 02/01/2015 PRE VISIT [facility] jC Frey (ov with dr [facility] MD timothy Carballo on [place] [facility] 02/06/15) [address] [facility] [address] [place] [address] [place], [place] [phone] (Wo rk) Social History Tobacco Use Types Packs/Day Years Used Date Smoking Tobacco: Never Assessed Sex Assigned at Date Recorded Female 10/30/2020 4:00 PM CDT documented as of this encounter Miscellaneous Notes Telephone Encounter - Ramonita Padilla RN - 02/03/2015 2:49 PM CST Received PMD records and echo. Sent to scan. E ANALYST Telephone Encounter - Saray Tran - 02/02/2015 8:08 AM CST PCP recs received- sent to chart prep E ANALYST Telephone Encounter - Saray Tran - 02/01/2015 3:16 PM CST PCP recs requested E ANALYST documented in this encounter Plan of Treatment Not on filedocumented as of this encounter Visit Diagnoses Not on filedocumented in this encounter Care Teams Grit Blaster Relationship Specialty Start Date End Date Denise Harris PCP - General Internal Medicine 01/17/[address] [address] documented as of this encounter
--- OUTSIDE RECORDS SUMMARY | 2022-01-21 08:48 | XMS_ITS | Encounter Summary ---
:1955 Author Organization [facility] Address [address] [place] [address] Care Team Providers Name Role Phone Denise [...] on filedocumented in this encounter Care Teams Dyeing Machine Tender Relationship Specialty Start Date End Date Denise Harris PCP - General Internal Medicine 01/17/15 [facility] [address] [place] [address] documented as of this encounter
--- OUTSIDE RECORDS SUMMARY | 2022-01-21 08:49 | XMS_ITS | Encounter Summary ---
:1955 Author Organization [facility] Address [address] [place] [address] Care Team Providers Name Role Phone Unavailable Primary Care Provider Unavailable Encounter Details Date Type Department Care Team Description 01/14/2022 Clinical Communication Department of Merissa Gaviria, Orthopedic Surgery in [place], [place] [address] [place] [phone] Social History Tobacco Use Types Packs/Day Years [...] do you attend buddhism or Never 2021 adventist services? Do you [...] or slept in a fdc (including now)? Education Answer Date Recorded What is the highest level of school Master's degree (e.g., M A, MS, 07/15/2020 you have completed or the highest Tiara, MEd, FOUNDER AND CHIEF EXECUTIVE OFFICER, ODILIA) degree you have received? Sex Assigned at Date Recorded Female 07/21/2017 2:58 PM CDT documented as of this encounter Miscellaneous Notes Telephone Encounter - Merissa Gaviria R.N. - 01/14/2022 2:[address] Herrera would like to see her whenever she is discharged. Telephone Encounter - Pedro Santiago - 01/14/2022 12:20 PM CDT Okay, well from the sound of things it is going to be a while. According to patient. Telephone Encounter - Merissa Gaviria R.N. - 01/14/2022 12:09 PM CDT We are aware that she has wound concerns, which is why we wanted to see her back. We would like to see her once she is discharged. Thanks Telephone Encounter - Pedro Santiago - 01/14/2022 11:14 AM CDT I call patient and she informed me the she is in the hospital for sepsis. She did not like that Dr. Herrera's office did not know this already, so she will not be able to set up that appointment at this time. documented in this encounter Plan of Treatment Upcoming Encounters Date Type Specialty Care Team Description 02/04/2022 Office Visit Orthopedic Surgery Deon Herrera M.D. [address] [place], [place] [phone] (Wo rk) documented as of this encounter Visit Diagnoses Not on filedocumented in this encounter Additional Health Concerns Assessment Noted Time PHQ-9 Depression Total Score: 5 04/29/2016 10:10 AM CS T documented as of this encounter
--- OUTSIDE RECORDS SUMMARY | 2022-01-21 08:49 | XMS_ITS | Clinical Summary ---
:1955 Author Organization [facility] Address [address] [place] [address] Care Team Providers Name Role Phone Unavailable Primary Care Provider Unavailable Source Comments Patient records contain information from all sites at [facility]. For routine questions regarding patient records, call [phone] during business hours, M-F 8:00 AM - 5:00 PM Central Time. Record requests for emergency care only can be directed to [phone] at any time.[facility] Allergies Active Allergy Reactions Severity Noted [...] MG IN PM., Reported on 12/24/2021 IRON,CARBONYL/ASCORBIC ACID Take 1 tablet 0 07/20/19 16 Active (VITRON-C ORAL) by mouth 2 (two) times [...] mg capsule by mouth daily. venlafaxine XR (EFFEXOR-XR) Take 75 mg by 0 05/26/19 21 Active 75 mg 24 hr capsule mouth daily. Take with 150 mg = [...] 0 10/22/2021 Active mouth daily. acetaminophen (TYLENOL) 500 Take 2 tablets 0 022 Active mg tablet (1,000 mg total) by mouth 4 (four) times a day. diazePAM (VALIUM) 5 mg Take 1 tablet 10 tablet 0 12/27/2021 Active tablet (5 mg total) by mouth 3 (three) times a day as needed for muscle spasms. oxyCODONE (ROXICODONE) 5 mg Take 1 tablet 18 tablet 0 12/28/19 22 Active immediate release (5 mg total) by tabletIndications: [...] each 0 12/28/2021 Active Ultra-Fine Mini Pen Needle) Injection 31 gauge x 3/16 needle total) daily. blood sugar diagnostic 4 test daily. 365 test 0 12/28/2021 Active strips blood-glucose meter misc Test as 1 each 0 12/28/2021 Active directed for diabetes control. insulin glargine (Lantus Inject 22 Units 15 mL 0 2 Active Solostar U-100 Insulin) 100 under the skin unit/mL (3 mL) injection every morning. insulin aspart U-100 Inject 8 Units 15 mL 0 12/28/2021 Active (NovoLOG Flexpen U-100 under the skin Insulin) 100 unit/mL (3 mL) 3 (three) times injection a day with meals. Give 8 units three times daily with meals. Hold if not eating or eating less than 50% of diet. Dose may need further adjustments loratadine (for_CLARITIN) Take 1 tablet 0 10/09/200912/15 Discontinued 10 mg tablet by mouth daily. 06/03 ( Stop Taking at 22 Discharge) acyclovir (for_ZOVIRAX) 200 Take by mouth 0 06/17/19 09 12/15 Discontinued mg capsule as needed. 22 CONTOUR NEXT STRIPS strips 2 (two) times a 3 018 12/15 Discontinued day. for testing 22 CONTOUR NEXT LEV 2 CONTROL U UTD 0 03/12/2017 Discontinued JONNY solution 22 MICROLET LANCET misc 2 (two) times a 3 04/04/2017 Discontinued day. for testing 22 alcaftadine 0.25 % drops INT 1 DROP IN 0 02/24/201912/15 Discontinued OU D 22 amoxicillin (AMOXIL) 500 mg Take 2,000 mg 0 12/15 Discontinued capsule by mouth as 06/03 (Stop Ta tio at directed. 22 Discharge) ibuprofen (ADVIL,MOTRIN) Take 800 mg by 0 11/17/201812/15 Discontinued 800 mg tablet mouth every 6 06/03 (S top Taking at (six) hours as 22 Disch arge) needed. mecobal-levomefolat Ca-B6 TAKE 1 TABLET 0 03/24/202012/15 Discontinued phos 3-35-2 mg tablet BY MOUTH TWICE 02 0 DAILY 22 oxyCODONE-acetaminophen Take 1-2 0 06/04/202012/15 Discontinued (PERCOCET) 5-325 mg per tablets by 06/03 (Stop Taking at tablet mouth 3 (three) 22 Disc harge) times a day as needed. Active Problems Problem Noted Date Scoliosis 12/21/2021 Body Mass Index 40.0 To 44.9 Adult 12/21/2021 Obstructive Sleep Apnea Adult 12/21/2021 Smoking Tobacco Use Personal History 12/21/2021 Embolus Pulmonary Personal History 12/18/2021 Anticoagulant Therapy 12/18/2021 Myelopathy Cervical 11/14/2021 Overview: Added automatically from request for brandin coleman [phone] Pain Neuropathic 04/11/2020 Constipation 09/23/2017 Prolapse Vaginal [...] Encounters Date Type Specialty Care Team Description 01/18/2022 Office Visit Orthopedic Surgery Alonzo Kearns is Status (Primary Dx); Wilmer Lang M.D. Pain Cervical 01/14/2022 Clinical Orthopedic Surgery Merissa Gaviria Communication M, R.N. 01/13/2022 Clinical Orthopedic Surgery Tho Heredia M.D. 01/12/2022 Documentation Orthopedic Surgery Tatum Diaz M.D. 12/26/2021 Clinical Orthopedic Surgery Javier, Post-op ( [...] Functi onal Status [R53.81 (ICD-10-CM)]; 12/28[facility] [facility] With Diabetic Neuropathy (HCC) 12/21/2021 Office Visit Orthopedic Surgery Javier, Cervical Disc Wilmer Lang M.D. Disorder With Myelopathy (Marleen skyler Dx) 12/21/2021 Comprehensive Visit Anesthesiology Javier Preope rative Exam (Primary Dx); Wilmer Lang M.D. Pain Low Back Unspecified; [place], Diabetes Mellit us Type 2 With Diabetic Neuropathy (HCC); Ernesto Cid M.D. Myelopathy Cer vical (HCC); Pain Neuropathi c; Hypertension Es sential Primary; [...] M.D. 12/04/2021 Documentation Social Work Adrianne Camp L.I.C.S.W., M.S.W. 11/26/2021 Telemedicine Spine Tami, Myelopathy Cerv ical (HCC) (Primary Dx); Flynn Chinchilla Stenosis Spina l Cervical; Stenosis Spinal Lumbar With Neurogenic Claudication 11/14/2021 Hospital Encounter Radiology Lia Junior s Spinal R, RIBBON BLOCKMAKER, Cervical C.N.P., M.S.N. 11/14/2021 Comprehensive Visit Orthopedic Surgery Rachel Kearns rvical Disc Disorder With Myelopathy (Primary Dx); Wilmer Lang M.D. Stenosis Spina l Cervical; Preoperative Ex am; Contact With An d (Suspected) Exposure To COVID-19; Encounter For P reprocedural Laboratory Examination (COVID-19) 11/12/2021 Comprehensive Visit Spine Claudinean, Stenosis Spinal Cervical (Primary Dx); Flynn Chinchilla [...] Name Status Comments Brother True Father Sunil Ha Mother Swathi ha Paternal Grandmother Sintia Ha [...] or slept in a chcf (including now)? Education Answer Date Recorded What is the highest level of school Master's degree (e.g., M Dago, MS, 07/15/2020 you have completed or the highest Tiara, MEd, GAS METER MECHANIC, ODILIA) degree you have received? Sex Assigned [...] 12/24/2021 10:31 AM CDT Plan of Treatment Upcoming Encounters Date Type Specialty Care Team Description 02/04/2022 Office Visit Orthopedic Surgery Deon Kearns M.D. [address] [phone] (Wo rk) Health Maintenance Due Date Last Done Comments [...] Completed 12/24/2021 Medical Devices Implanted Type Area Fall Intern Device Shelf Model / Identifier Expiration Serial / Date Lot Miniplate Double Bend 10mm Spacing Hardware N/A: Posterior Depuy Synt hes [id number] / Implanted: Qty: 3 on 12/24/2021 by Wilmer Patrick M.D. at [facility] e.g. Cervical / pins/screws /rods Sigma Post Stab.W Lug Fem Sz 5 Rt - Gallo [id number] Knee Other/Legacy - Stephen & Implanted: Qty: 1 on 12/18/2011 Implant See Implant [employer] Description: Device Fall Intern - [employer]. Body Location - Other. Right. Device Status Text - KNEE [id number]. Cement Bone Large - Gallo [id number] Misc Other [place] Implanted: Qty: 1 on 12/18/2011 Description: Device Fall Intern - Stryk er Mariama.. Device Status Text - [id number]. Procedures Procedure Name Priority Date/Time Associated Comments Diagnosis OUTSIDE CT NEURO Routine 01/13/2022 9:35 Results for this AM CDT procedure are i n the results section. GLUCOSE POCT, B Routine 12/28/2021 12:13 Results [...] CDT procedure are in the results section. OK ARTL CATH/CNULA Routine 12/24/2021 12:59 Resul ts for this MONITOR PERC PM CDT procedure are i n the results section. LDA ANE Routine 12/24/2021 12:47 Results for this ENDOTRACHEAL AIRWAY PM CDT procedur e are in the results section. 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 from Last [address] SOFT TISSUE NECK W CON-Outside CT Neuro (01/13/2022 9:35 AM CDT) Specimen (Source) Anatomical Location Collection Method / Collectio n Time Received Time / Laterality Volume Narrative IIMS - 01/13/2022 2:02 PM CDT This order has been created and auto-finalized to support the import of outside images. If available, original i nterpretation can be found on the Media Tab in Chart Review, in Document V iewer, or as an image in QREADS. If a re-interpretation or overread is re quired please follow defined workflow. ?? Provider Not In System IMG CT PROCEDURES Performing Organization Address City/State/ZIP Code Phon e Number IIFL IIFL NA (ABNORMAL) Glucose, POCT (12/28/2021 12:13 PM CDT)Only [...] Address City/State/ZIP Code Phon e Number POC [facility] [address] [place] [address] [facility] [place] [address] [place] [facility] [address] DX Cervical Spine [...] CBC without Differential (12/24/2021 8:41 PM CDT) [facility] gist Method Time Signature Hemoglobin 14.3 11.6 [...] Organization Address City/State/ZIP Code Phon e Number [facility] - [address] [place], [place] [address] [facility] [place] [place] [address] [facility] [address] [facility] (ABNORMAL) Basic Metabolic Panel (12/24/2021 8:41 PM [...] M.D. LAB BLOOD ADD-ON Performing Organization Address [facility] Phon e Number [facility] - [address] [place], [place] [address] [facility] [place] [address] [facility] [address] [facility] [place] Fluoro Less Than 1 Hour (12/24/2021 [...] M.D. IMG FLUOROSCOPY PROCEDURES Performing Organization Address [facility] Code Phon e Number 152 HOS LOS RST Patient Status (12/24/2021 2:57 PM CDT) P athologist Signature Temperature 35.7 37.0 deg C 12/24/2021 STMA 2:57 PM CDT FIO2 0.60 0.21=AIR 12/24/2021 STMA 2:57 PM CDT Specimen Anatomical Collection Method Collection Time Receive d Time (Source) Location / / Volume Laterality Blood 12/24/2021 2:57 PM 2:57 CDT PM CDT Svetlana Hastings D.O. LAB BLOOD NON ADD-ON Performing Organization Address City/[facility] Code Phon e Number [facility] - [address] [place], [place] [address] [place] [address] [facility] [address] [facility] Sodium, B (12/24/2021 2:57 PM CDT) athologist Signature Sodium, B 135 135 - 145 12/24/2021 2:58 STMA mmol/L PM CDT Specimen Anatomical Collection Method Collection Time Receive d Time (Source) Location / / Volume Laterality Blood (Blood, 12/24/2021 2:57 PM 12/25/19 2:57 Arterial Line) CDT PM CDT Milton Davis M.D. LAB BLOOD NON ADD-ON Performing Organization Address City/State/ZIP Code Phon e Number [facility] - [address] [place] [address] 05 [place] [address] [facility] [address] [facility] (ABNORMAL) Blood Gas with Coox, Arterial (12/24/2021 [...] LAB BLOOD NON ADD-ON Performing Organization Address City/[facility]/ZIP Code Phon e Number [facility] - [address] [place], [place] [address] [place] [address] Potassium, Blood (12/24/2021 2:57 PM CDT) athologist Signature Potassium, B 3.7 3.6 - 5.2 12/24/2021 STMA mmol/L 2:58 PM CDT Specimen Anatomical Collection Method Collection Time Receive d Time (Source) Location / / Volume Laterality Blood (Blood, 12/24/2021 2:57 PM 12/25/19 2:57 Arterial Line) CDT PM CDT Milton Davis M.D. LAB BLOOD NON ADD-ON Performing Organization Address City/State/ZIP Code Phon e Number [facility] - [address] [place], [place] [address] [facility] [place] [address] [place] [address] [address] [facility] (ABNORMAL) Glucose, Whole Blood (12/24/2021 2:57 PM CDT) athologist Signature Glucose 231 (H) 70 - 140 12/24/2021 STMA mg/dL 2:58 PM CDT Specimen Anatomical Collection Method Collection Time Receive d Time (Source) Location / / Volume Laterality Blood (Blood, 12/24/2021 2:57 PM 12/25/19 2:57 Arterial Line) CDT PM CDT Milton Davis M.D. LAB BLOOD TROPONIN Performing Organization Address City/[facility] Phon e Number [facility] - [address] [place], [place] [address] [place] [address] [facility] [address] [facility] Calcium, Ionized (12/24/2021 2:57 PM CDT) athologist Signature Calcium, 4.85 4.65 - 5.30 12/24/2021 [facility] Ion[facility], B mg/dL 2:58 PM CDT Specimen Anatomical Collection Method Collection Time Receive d Time (Source) Location / / Volume Laterality Blood (Blood, 12/24/2021 2:57 PM 12/25/19 22 2:57 Arterial Line) CDT PM CDT Milton Davis M.D. LAB BLOOD NON ADD-ON Performing Organization Address City/State/ZIP Code Phon e Number [facility] - [address] [place], [place] [address] [facility] [place] [address] [facility] [address] [place] ARTL CATH/CNULA MONITOR PERC, LDA ANE ARTERIAL [...] fellow participated in the procedure, and the sap business objects consultant was present for the entire procedure. [...] ETT location: oral VL device: glide scope [place] scope blade size: 3 Adult tube size: [...] ? Final Report Study Number: 2 EMG Supervisor Litharge: Indra Mallory . [phone] or [phone] Referred by: WILMER KEARNS (127 or [phone]) Referred for: Referral Code: ?1957 RX: 1957 [...] surg ical suite. Geri Mallory (127 or [phone])/[facility] Surgery ? Staff Minutes Start-DateTime End-DateTim e Remote Simultaneous Supervision 131 12/15 13:02 PM ANALYTICAL TECH 12/24/2021 15:13 PM ANALYTICAL TECH Remote Exclusive (1:1) Supervision 0 12/2021 00:00 AM ANALYTICAL TECH 12/24/2021 00:00 AM ANALYTICAL TECH In-Room Exclusive (1:1) Supervision 0 00:00 AM ANALYTICAL TECH 12/24/2021 00:00 AM ANALYTICAL TECH Total Monitoring Time: 131 ?? This interpretation has been electron ically signed: Indra Mallory MD at 12/24/2021 3:16:44 PM CDT Procedure Note Indra Mallory M.D. - 12/24/2021Formatt ing of this note is different from the original. 24-Dec-2021 Intraoperative Monitoring Fi nal Report Study Number: 2 EMG Supervisor Litharge: Indra Mallory . 127 or [phone] Referred by: WILMER KEARNS (127 or [phone]) Referred for: Referral Code: 1958 RX: 1957 SUMMARY: Somatosensory evoked potentials (SEPs), [...] for this surgery. Real-time neurophysiologic data was avwillow lable for me to view and interrogate contemporaneously. Throughout monitoring, there were provis ions for continuous and immediate communication directly with the operating room team in the surg ical suite. Geri Mallory (127 or [phone])/[facility] Surgery Staff Minutes Start-DateTime End-DateTim e Remote Simultaneous Supervision 131 12/15 13:02 PM ANALYTICAL TECH 12/24/2021 15:13 PM ANALYTICAL TECH Remote Exclusive (1:1) Supervision 0 12/2021 00:00 AM ANALYTICAL TECH 12/24/2021 00:00 AM ANALYTICAL TECH In-Room Exclusive (1:1) Supervision 0 00:00 AM ANALYTICAL TECH 12/24/2021 00:00 AM ANALYTICAL TECH Total Monitoring Time: 131 This interpretation has been electron ically signed: Indra Mallory MD at 12/24/2021 3:16:44 PM CDT Wilmer Kearns M.D. NEUROLOGY ORDERABLES Performing Organization Address City/State/ZIP Code Phon e Number [facility] ECG 12 Lead (12/21/2021 11:21 AM CDT) P athologist Signature Ventricular Rate 72 BPM MUSE ECG/Min [place] Interval 180 ms MUSE QRSD Interval 100 ms MUSE QT Interval 382 ms MUSE QTC Interval 418 ms MUSE P Timpson 1 degrees MUSE R Timpson -16 degrees MUSE T Wave Timpson 26 degrees MUSE Specimen Anatomical Collection Method [...] on C3 anterolisthesis slightly increases in flexion. Wilmer BRAGA DIAGNOSTIC IMAGING PROCE JENIFFERES CT Cervical Spine without IV Contrast (12/18/2021 1:02 PM CDT) Anatomical Region Laterality Modality Cervical Spine, Neuroradiology RST LOS, N/A Computed Tomography, Computed Neuroradiology ARZ LOS, Neuroradiology T omography FLA [facility] Specimen (Source) Anatomical Collection Method Collection Time [...] CONTR AST COMPARISON: Cervical spine MRI . CT cervical spine 06/05/2015 FINDINGS: Loss of [...] thyroid ultrasound is recommended if clinically appropriate. Authorizing Provider Result Robert Kearns M.D. IMG CT PROCEDURES 25-Hydroxyvitamin D2 and D3 (12/18/2021 [...] benefit from higher levels within this r iperre. ----ADDITIONAL INFORMATION---- This test was developed and its performa nce characteristics determined by [facility] in a manner consistent with CLIA requirements. This test has not been cleared or approved by the [place] Vira d and Drug Administration. Specimen Anatomical Collection Method Collection Time Receive d Time (Source) Location / / Volume Laterality Blood (Blood, 12/18/2021 12:28 12/19/2021 7:23 Venous) PM CDT AM CDT Authorizing Provider Result Robert Kearns M.D. LAB BLOOD ADD-ON Performing Organization Address City/State/ZIP Code Phon e Number [facility] [address] [place] [address] PRATHER APTT (Activated Partial Thromboplastin Time) (12/18/2021 12:28 PM CDT) athologist Signature Activated 34 25 - 37 sec 12/18/2021 DTL Partial 1:23 PM CDT Thrombopl Time, P Specimen Anatomical Collection Method Collection Time Receive d Time (Source) Location / / Volume Laterality Blood (Blood, 12/18/2021 12:28 12/18/2021 Venous) PM CDT 12:38 PM CDT Authorizing Provider Result Robert Kearns M.D. LAB BLOOD ADD-ON Performing Organization Address City/[facility] Phon e Number [facility] - [address] [place], [place] [address] [facility] [place] [place] [address] [facility] [address] [facility] Prothrombin Time (PT) (12/18/2021 12:28 PM CDT) [...] M.D. LAB BLOOD ADD-ON Performing Organization Address City/[facility] Phon e Number [facility] - [address] [place] [address] [place] [address] Laboratories-[address] (ABNORMAL) CBC with Differential, Blood (12/18/2021 12:28 PM CDT) Patholo gist Method Time Signature Hemoglobin 14.8 11.6 [...] Organization Address City/State/ZIP Code Phon e Number [facility] - [address] [place] [address] [place] [address] [address] Type and Screen (with reflex Antibody ID) (12/18/2021 12:28 PM CDT) [facility] gist Method Time Signature ABORh O Pos [...] BANK TEST ORDERABL ES Performing Organization Address [facility] Phon e Number [facility] - [address] [address] [facility] [place] [address] (ABNORMAL) Hemoglobin A1c (12/18/2021 12:28 PM CDT) athologist Signature Hemoglobin A1c, 9.0 (H) 4.0 [...] M.D. LAB BLOOD ADD-ON Performing Organization Address City/[facility]/ZIP [facility] Phon e Number [facility] - [address] [address] [facility] [place] [place] [address] (ABNORMAL) Comprehensive Metabolic Panel (12/18/2021 12:28 [...] Organization Address City/State/ZIP Code Phon e Number [facility] - [address] [place], [place] [address] [facility] [place] [place] [address] [facility] [address] BMD Bone Density Spine [...] Mineral Density (BMD) analysis perf ormed on Viewdle with serial number [id number]. ? FINDINGS: Left Hip: Femur Neck: BMD [...] including images and graphs, is available in [employer]. In the absence of other causes of [...] % ? Today's spine scan is considered non-hiede gnostic according to ISCD Guidelines. Procedure Note Jai Villagran M.B., B.Ch., B.A.O. - 12/18/2021 EXAM: BMD BONE DENSITY SPINE HIPS Bone Mineral Density (BMD) analysis perf ormed on [employer] with serial number [id number]. FINDINGS: Left Hip: Femur Neck: BMD = [...] including images and graphs, is available in [employer]. In the absence of other causes of [...] Whitmore APRNNAman., M.S.N. 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 See document viewer. Latest Code Status on File Code Status Date Activated Date Inactivated Comments Full Code 12/24/2021 6:31 PM 12/28/2021 5:21 PM Question Answer Comments Full Code: Discussed
--- OUTSIDE RECORDS SUMMARY | 2022-01-21 08:49 | XMS_ITS | Encounter Summary ---
:1955 Author Organization [facility] Address [address] [place] [id number] Care Team Providers Name Role Phone Unavailable Primary Care Provider Unavailable Reason for Referral Outpatient (Routine) - Authorized Specialty Diagnoses / Procedures Referred By Contact Refer red To Contact Orthopedic Surgery Buster Herrera [place] M.D. [address] [place] [address] Referral ID Status Reason Start Date Expiration Date Visits V isits Requested Authorized [id number] Authorized 01/18/2022 01/17/2025 1 1 Outpatient (Routine) - Authorized Specialty Diagnoses / Procedures Referred By Contact Refer red To Contact Diagnoses Arthrodesis Status Buster Herrera M.D. [address] [place], [place] [address] Referral ID Status Reason Start Expiration Visits Visits Date Date Requested Authorized [id number] Authorized Continuity of 01/18/2022 01/18/2023 1 1 Care Reason for Visit Outpatient (Routine) - Closed Specialty Diagnoses / Procedures Referred By Contact Refer red To Contact Orthopedic Surgery Diagnoses Pain Cervical Buster Herrera [place] M.D. [address] [place] [address] Referral ID Status Reason Start Date Expiration Date Visits Requ ested Visits Authorized [id number] Closed 12/26/2021 12/25/2024 1 1 Encounter Details Date Type Department Care Team Description 01/18/2022 Office Visit Department of Buster Herrera s Status (Primary Dx); Orthopedic Surgery in S, M.D. Pain Cervical [place], [place] [address] [place] [phone] Social History Tobacco Use Types Packs/Day Years [...] do you attend restorationist or Never 2021 pentecostalism services? 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 Sex Assigned at Date Recorded Female 07/21/2017 2:58 PM CDT documented as of this encounter Progress Notes Buster Herrera M.D. - 01/18/2022 10:00 AM CDT SUBJECTIVE HISTORY OF PRESENT ILLNESS Patient returns to us today. Of note, she is status post cervical laminoplasty. She did very well from this. Unfortunately developed symptoms concerning for fevers, chills, and sepsis. She was treated with a course of IV antibiotics at a local hospital, presents today for followup. She did report somedrainage from the incision yesterday, but this seems to have tapered off. She is on doxycycline. OBJECTIVE PHYSICAL EXAMINATION Musculoskeletal: She is neurologically unchanged from our last visit. Her incision demonstrates no significant induration or erythema. She does have a mild amount of serous drainage at the proximal extent where there is some delayed wound healing. DIAGNOSTICS On review of the patient's imaging of the cervical spine including a CT scan with soft tissue windows obtained of the cervical spine on January 13 at outside facility, her laminoplasty implants appear to be in stable position without any signs of acute hardware loosening or failure. ASSESSMENT / PLAN #1 Status post cervical laminoplasty 12/24/2021 #2 Recent hospital admission and treatment for sepsis #3 Wound drainage At this time, I had a long discussion with the patient. Certainly, at this time, I do not see a significant amount of drainage and her incision appears to be well approximated with no obvious signs of infection. As such, I do think careful and close observation would be warranted. I have recommended obtaining some baseline labs today to include CBC, ESR, CRP. We will plan to follow up on those, and this will serve as a good baseline for tracking her response to antibiotic management. Otherwise, I did discuss with her that we will plan on continuing close observation and dry dressing changes, and I will plan to see her back in 2 weeks' time. Certainly, if she has worsening drainage or any new constitutional symptoms, we may need to consider return to the operating room for irrigation and debridement. We did discuss all this with her in detail. All questions were answered. Buster Herrera M.D. CT CT Job ID: [id number] documented in this encounter Plan of Treatment Upcoming Encounters Date Type Specialty Care Team Description 02/04/2022 Office Visit Orthopedic Surgery Deon Herrera M.D. [address] [place] [address] [phone] (Wo rk) Scheduled Referrals Name Type Priority Associated Order Schedule Diagnoses Orthopedic Surgery Outpatient Referral Routine Ex pected: office visit 02/01/2022, (clinic) Expires: 01/18/2023 documented as of this encounter Visit Diagnoses Diagnosis Arthrodesis Status - Primary Pain Cervical documented in this encounter Additional Health Concerns Assessment Noted Time PHQ-9 Depression Total Score: 5 04/29/2016 10:10 AM CS T documented as of this encounter
--- OUTSIDE RECORDS SUMMARY | 2022-01-21 08:49 | XMS_ITS | Encounter Summary ---
:1955 Author Organization [facility] Address [address] [place] [id number] Care Team Providers Name Role Phone Unavailable Primary Care Provider Unavailable Reason for Referral Outpatient (Routine) - Authorized Specialty Diagnoses / Procedures Referred By Contact Refer red To Contact Orthopedic Surgery Cathy Kelley Rochest Van DUMAS, C.N.P. [address] [place] [phone] Referral ID Status Reason Start Date Expiration Date Visits V isits Requested Authorized [id number] Authorized 12/27/2021 12/26/2024 1 1 Scheduling Instructions There will be imaging and testing relate d to this appointment utpatient (Routine) - Authorized Specialty Diagnoses / Procedures Referred By Contact Refer red To Contact Orthopedic Surgery Cathy Kelley Rochest. [facility] Van DUMAS, C.N.P. [address] [place] [phone] Referral ID Status Reason Start Date Expiration Date Visits V isits Requested Authorized [id number] Authorized 12/27/2021 12/26/2024 1 1 Scheduling Instructions This visit will be with a member of Dr. Kearns's care team/ARNIE Encounter Details Date Type Department Care Team Description 12/24/2021 - Hospital Encounter [facility] Javier, Myelopath y Cervical (HCC) (Primary Dx); 12/28/2021 [facility] Aguilar M.D. 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 Do you [...] a [place] [facility] [place] (including now)? Education Answer Date Recorded What is the highest level of school Master's degree (e.g., M A, MS, 07/15/2020 you have completed or the highest Tiara, MEd, ASSEMBLY OPERATOR, ODILIA) degree you have received? Sex [...] PM CDT DISCHARGE SUMMARY BRIEF OVERVIEW Hospital: [facility] Discharge Provider: Wilmer Kearns M.D. Primary Team: [...] James T, M.D. RSTROMB OR DISCHARGE DISPOSITION Half-Way Facility OUTPATIENT FOLLOW UP For appointment details [...] recovery progresses, you may resume the elliptical circus trainer. NO RUNNING or SPORTS, until we [...] for anyone undergoing this surgery. 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 Kearns's service through the [facility] casing wringer operator at . THANK YOU AND GET [...] 12/18/2021 Please have Provider of Care at halfway facility review blood glucoses at least twice weeklyto determine if changes in insulin therapy are indicated, or earlier if blood glucose values are consistently out of goal range. As Diabetes and Nutritional Education is important to your diabetes management, yearly follow up with a local Check Weigher and Dietitian is recommended. Please check with [...] Discharge information provided on 12/25/2021 Contact information: [facility], 5 [place], documented in this encounter Medications [...] in agreement with the plan. DCS pager [phone] will continue to follow. Call primary service for diabetes concerns between [phone]. Primary service to contact DCS via hospital casing wringer operator for questions. Yanet Sanchez - 12/28/2021 [...] based on her usual exercise protocol called [employer] channel. Patient opted to perform exercise called [...] Completion Date - OT: 12/25/21 Outcome Measures [facility] Inpatient Short Form: Putting on and taking [...] Standardized Score: 40.22 Interpretation: Clinicians answer the [facility] Inpatient Short Form based on observed patient [...] bed relaxing. SW updated patient regarding accepting halfway facility. Patient reported she wouldlike a stretcher [...] be changed. Transportation will be provided by [employer] ([phone]). Transportation will be paid for by patient. Daughter was called as well who informed SW that patient has a credit card with her ipad or another one in her suitcase. . Destination - Admitted Since 12/24/2021 Service Provider Selected Services Address Phone Fax Patient Preferred [facility] Half-Way [address] INCLUDES THE [facility] [address] [phone] -- Contact: Nursing Transportation oxygen: No oxygen [...] Orthopedic Spine Surgery Progress Note Orthopedic Service: [facility] Admission Day: 12/24/2021 SUBJECTIVE Mrs. Multani [...] Deltoid?? Biceps?? Triceps Wrest ext Wrist flex Construction Project Administrator Fing Abd?? R?? 5 5 5 5?? [...] time on the weekend, please contact the [facility] Orthopedic Surgery house resident air conditioner installer helper at [phone]. Barbara Dyson R.R.T., L.R.T. - 12/27/2021 10:34 [...] needs met and questions answered. Outcome Measures AM-[facility] Inpatient Short Form: AM-[facility] Basic Mobility (V.2) How much help from [...] Climbing 3-5 steps with a railing?: Total -[facility] Basic Mobility (V.2) Raw Score: 16 -[facility] Basic Mobility (V.2) Standardized Score: 38.32 Interpretation: Clinicians answer the -[facility] Inpatient Short Form based on observed patient [...] activity, Neuromuscular re-education, Gait training, Self-care/home management DAMPER MAKER Visit Trackin Billing: Time Spent with Patient [...] Selected Services Address Phone Fax Patient Preferred [facility] Pending - Request Sent N/A [address] [facility] [address] [phone] -- [facility] Pending - Request Sent N/A [address] [facility] [address] [phone] -- [facility] Pending - Request Sent N/A [address] [facility] [address] -- [facility] Pending - Request Sent N/A [address] [facility] [address] -- [place] Half-Way Pending - Request Sent N/A [address] [facility] [address] -- [facility] Pending - Request Sent N/A [address] [facility] [address] [phone] -- [facility] Declined Bariatric N/A [address] [facility] [address] [phone] -- ASSESSMENT / PLAN ASSESSMENT Patient was [...] Completion Date - OT: 12/25/21 Outcome Measures [facility] Inpatient Short Form: Putting on and taking [...] Standardized Score: 40.22 Interpretation: Clinicians answer the [facility] Inpatient Short Form based on observed patient [...] Orthopedic Spine Surgery Progress Note Orthopedic Service: [facility] Admission Day: 12/24/2021 SUBJECTIVE Mrs. Multani [...] Deltoid?? Biceps?? Triceps Wrest ext Wrist flex Construction Project Administrator Fing Abd?? R?? 5 5 5 5?? [...] time on the weekend, please contact the [facility] Orthopedic Surgery house resident air conditioner installer helper at [phone]. Barbara Dyson, R.R.T., L.R.T. - 12/26/2021 10:49 PM CDT 12/26/21 3919 BPAP/CPAP Therapy BPAP/CPAP Interface Full face mask [...] of thyroid cancer. Reviewed this with our solutions delivery consultant Dr. Pastor who recommends that a [...] in agreement with the plan. DCS pager [phone] will continue to follow. Call primary service for diabetes concerns between [phone]. Primary service to contact DCS via hospital casing wringer operator for questions. Yanet Sanchez - 12/26/2021 [...] dressing while seated edge of bed by [facility] gown. Patient able to thread UEs and [...] Completion Date - OT: 12/25/21 Outcome Measures [facility] Inpatient Short Form: Putting on and taking [...] Standardized Score: 38.66 Interpretation: Clinicians answer the -[facility] Inpatient Short Form based on observed patient [...] Orthopedic Spine Surgery Progress Note Orthopedic Service: [facility] Admission Day: 12/24/2021 SUBJECTIVE Mrs. Multani [...] Deltoid?? Biceps?? Triceps Wrest ext Wrist flex Construction Project Administrator Fing Abd?? R?? 4 5 5 5?? [...] time on the weekend, please contact the [facility] Orthopedic Surgery house resident air conditioner installer helper at [phone]. Sahra Hamilton R.R.T., C.R.T., L.R.T. - 12/25/2021 [...] is a 66 y.o. female admitted to [facility] on 12/24/2021 9:54 AM for cervical [...] N/A GI: Bowel regimen ordered. Last BM DAMPER MAKER. Dietary Orders (From admission, onward) Start Ordered [...] bowel regimens Foster Seals, PharmCandyDCandy, R.Ph. Pager: [phone] Dilshad Mendoza APRN, C.N.P., D.N.P. - 12/25/2021 [...] in agreement with the plan. DCS pager [phone] will continue to follow. Call primary service for diabetes concerns between [phone]. Primary service to contact DCS via hospital casing wringer operator for questions. Tho Heredia M.D. - 12/25/2021 5:25 AM CDT Orthopedic Spine Surgery Progress Note Orthopedic Service: [facility] Admission Day: 12/24/2021 SUBJECTIVE Ms. Adames [...] Deltoid?? Biceps?? Triceps Wrest ext Wrist flex Construction Project Administrator Fing Abd?? R?? 4 5 4 5?? [...] 6 am until 6 pm, please page Catharpin service. If outside of 06:00 - 18:00 on weekdays or any time on the weekend, please contact the [facility] Orthopedic Surgery house resident air conditioner installer helper at [phone]. Kermit Shin R.R.T., L.R.T. - 12/24/2021 11:30 PM CDT 12/24/21 9990 Ventilator Parameters BPAP/CPAP Mode Auto-CPAP O2 Flow [...] Orthopedic Spine Surgery Progress Note Orthopedic Service: [facility] Admission Day: 12/24/2021 SUBJECTIVE Seen in [...] Deltoid?? Biceps?? Triceps Wrest ext Wrist flex Construction Project Administrator Fing Abd?? R?? 4 4 4 5?? [...] time on the weekend, please contact the [facility] Orthopedic Surgery house resident air conditioner installer helper at [phone]. Brodie Calderón PharmCandyDCandy, R.Ph. - 12/24/2021 10:49 [...] answered allquestions. OBJECTIVE Patient remains hospitalized on [facility] 4c-128 A list of halfway facility options (that they geographically reside or requested) has been provided to and reviewed with patient and daughter Lia . Disclaimers: Financial disclosure provided informing patient of our ownership and financial relationship of the [facility] beds, home health, and hospice agencies. Reviewed Medicare coverage and provided a list of options. Destination - Admitted Since 12/24/2021 Service Provider Request Status Selected Services Address Phone Fax Patient Preferred [facility] Pending - Request Sent N/A [address] [facility] [address] [phone] -- [facility] Pending - Request Sent N/A [address] [facility] [facility] [address] [phone] -- [facility] Pending - Request Sent N/A [address] [facility] [facility] [address] -- ASSESSMENT / PLAN ASSESSMENT Patient is [...] CERVICAL C3-7.; Surgeon: Wilmer Kearns M.D.; Location: [facility] ROMB OR OTHER CONVERTED SHX (SEE COMMENT) [...] lives nearby) Receives Help From: Family, Friend(s), prop attendant (Daughter stops by for 2 hours 5x/week; ELECTRIC MOTORMAN helps with bathing 2x/week) ADL Assistance: Required assistance ADL Assistance Comments: Performs dressing and grooming tasks without assistance. Requires assistance for showers IADL/Homemaking Assistance: Required assistance IADL/Homemaking Assistance Comments: Daughter assists with cleaning, cooking, home management. Friend assists with medication management Driving: Does not drive Occupational Role: Retired Leisure Interests: Engages in seated exercise program daily Prior Mobility/Functional Transfers Level of [place]: Modified independent Gait Devices/Wheelchair Used: Other (Comment) [...] needs met and questions answered. 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: Modified independent Gait Devices/Wheelchair Used: Other (Comment) [...] Completion Date - OT: 12/25/21 Outcome Measures [facility] Inpatient Short Form: Putting on and taking [...] Standardized Score: 38.66 Interpretation: Clinicians answer the [facility] Inpatient Short Form based on observed patient [...] by: Adrianne Camp L.I.C.SCandyWCandy, M.S.W. Primary Language: Angolan Person(s) present during interview: Person(s) Present During Interview: patient History of Present Illness #1 Myelopathy Cervical (HCC) Social History Support System: children Patient's Home Environment: two/multiple story house Finance/Insurance Primary insurance: MEDICARE A AND B Secondary insurance: [employer] Does the patient have any financial concerns? no benefits: No Advance Directives Legal Decision Maker: Self Advance Directives: Power of Research Clerk for health care Advance Directives Status: Not Activated OBJECTIVE Baseline Functional Status Baseline Activities of Daily Living Mobility: Independent Dressing: Independent Feeding: Independent Bathing: Needs assistance Grooming: Independent Toileting: Independent Behavior: Calm, Pleasant, Other (comment) (fatigued) Communication: Talks, Understands speaking, Understands Angolan Shopping: Dependent Transportation: Support from family Medication Management: Independent Housekeeping: Dependent Meal Prep: Needs assistance Managing Finances: Independent Assistive Devices: Eyeglasses, Walker - four wheeled, Wheelchair - manual, Dentures Baseline Services/Resources Primary care clinic and provider: Anoop Emery from [facility] in [place] [phone] Additional Resources: NA Anticipated Needs Functional Status: Bathing, Mobility, Meal preparation, Housekeeping, Shopping, Transportation use (drive car, use taxi/bus) Anticipated Modifications to the Patient's Home: None Transportation Needs: Support from family Does the patient need discharge transport arranged?: No Ride and Caregiver Arranged: Yes Ride Caregiver Provider: Lia Moscoso Phone Number for Ride/Caregiver: [phone] Anticipated Discharge Destination: Half-Way Facility ASSESSMENT / PLAN Assessment: The deposition operator met with Yaz Adames to discuss her [...] have previously been completed by patient's daughter. deposition operator discussed the patient's potential needs at dismissal based on their home setting, previous needs and responsibilities, homebound status, and relevant assessmentswith the patient. Support will be provided by patient's daughter. The patient demonstrated understanding when discussing her home going plans and anticipated needs. Patient expressed wanting to go to a rehab facility upon discharge. Yaz has requested admission to [facility] in [place], [place] ([phone]) as her first choice. Patient also identifies [facility] ([phone]) or [facility] ([phone]) as alt ernative options for SNF admission. Physical and occupational therapy have yet to evaluate the patient so deposition operator will await their recommendations for further discharge [...] the same level. At this time, the deposition operator will await physical and occupational therapy's recommendations to assess if a rehab facility would be feasible, as this is the patient's preferred discharge plan. After reviewing the patient's chart and meeting with the patient, the deposition operator deemed the LACE+/readmission questions were not necessary. [...] dismissal will be provided by family--Lia . deposition operator recommended private pay home services such as housekeeping, assistance with ADLs, private caregivers, Life Alert services, etc. and reaching out to family, friends, and neighbors for assistance. deposition operator provided information regarding the dismissal process. deposition operator placed or requested the following hospital-based consult orders and/or referrals: None. deposition operator will continue to assess for homegoing needs with the interdisciplinary team. deposition operator encouraged the patient to reach out with [...] Thank you for the consult. DCS pager [phone] will follow. Call primary service for diabetes concerns between [phone]. Primary service to contact DCS via hospital casing wringer operator for questions. documented in this encounter [...] with all her belongings to go to [facility]. Svetlana Núñez R.N. - 12/26/2021 6:20 [...] 3:40 PM CDT SURGEON: Dr. Wilmer Kearns. SENIOR COMMERCIAL LOAN OFFICER: Dr. Tho Heredia. PRE-OPERATIVE DIAGNOSIS Progressive cervical [...] Obstructive sleep apnea. Restless legs syndrome. A first officer actively participated in one or [...] to ensure good range of motion withthe Shaver-Clayton tongs, ensured adequate decompression across the laminoplasty [...] by Social Work to start working on halfway facility placement. I anticipate discharge to a halfway facility in 3-4 nights. TPR: 2, Decompression and laminoplasty Wilmer Kearns M.D. CT CT Job ID: [id number] documented in this encounter Miscellaneous Notes Hospital [...] Visit Orthopedic Surgery Deon Kearns M.D. 200 [place], [place] [phone] (Wo rk) Scheduled Referrals Name [...] CERVICAL PM CDT Cervical (HCC) Case Notes sap pp consultant 1003 GLUCOSE POCT, B Routine 12/24/2021 11:46 [...] Provider LAB POCT ORDERABLES-MANUAL Performing Organization Address City/[facility] Phon e Number POC [facility] [address] [place] [address] [place], [place] [id number] [place] [address] POC 200 [facility] (ABNORMAL) Glucose, POCT (12/28/2021 7:41 AM CDT) Analysis Performed At [facility] Time Signature Glucose, POCT, 226 (H) 70 - 140 12/28/2021 [facility] B mg/dL 7:48 AM CDT Site Capillary 12/28/2021 [facility] 7:48 AM CDT Last Intake 3-4 hours 12/28/2021 [facility] 7:48 AM CDT Specimen Anatomical Collection Method Collection Time Receive d Time (Source) Location / / Volume Laterality Blood 12/28/2021 7:41 AM 7:49 CDT AM CDT Unknown Provider LAB POCT ORDERABLES-MANUAL Performing Organization Address City/[facility] Phon e Number POC [facility] [address] [place] [address] [place], [place] [id number] [place] [address] POC 200 [facility] (ABNORMAL) Glucose, POCT (12/28/2021 3:15 AM CDT) Analysis [facility]formed At [facility] Time Signature Glucose, POCT, 181 (H) 70 [...] Address City/State/ZIP Code Phon e Number POC [facility] [address] [place] [address] PCLX [facility] [place] [address] [place] POC [address] (ABNORMAL) Glucose, POCT (12/27/2021 9:01 PM CDT) Analysis Performed At [facility] Time Signature Glucose, POCT, 168 (H) 70 - 140 12/27/2021 [facility] B mg/dL 9:12 PM CDT Site Capillary 12/27/2021 [facility] 9:12 PM CDT Specimen Anatomical Collection Method Collection Time Receive d Time (Source) Location / / Volume Laterality Blood 12/27/2021 9:01 PM 2 9:12 CDT PM CDT Unknown Provider LAB POCT ORDERABLES-MANUAL Performing Organization Address City/[facility] Code Phon e Number POC [facility] [address] [place] [address] [facility] [place] [address] [place] POC [address] (ABNORMAL) Glucose, POCT (12/27/2021 4:33 PM CDT) Analysis Performed At [facility] Time Signature Glucose, POCT, 236 (H) 70 [...] Address City/State/ZIP Code Phon e Number POC [facility] [address] [place] [address] [place] [address] [place] POC [address] (ABNORMAL) Glucose, POCT (12/27/2021 12:54 PM CDT) [...] Provider LAB POCT ORDERABLES-MANUAL Performing Organization Address City/[facility]/ZIP Code Phon e Number POC [facility] [address] [place] [address] [place] [address] [place] POC [address] [facility] (ABNORMAL) Glucose, POCT (12/27/2021 7:46 AM CDT) [...] Provider LAB POCT ORDERABLES-MANUAL Performing Organization Address City/[facility]/ZIP Code Phon e Number POC [facility] [address] [place] [address] [place] [address] [place] POC [address] (ABNORMAL) Glucose, POCT (12/27/2021 2:32 AM CDT) [...] Provider LAB POCT ORDERABLES-MANUAL Performing Organization Address City/[facility] Code Phon e Number POC [facility] [address] [place] [address] [place] [address] [place] POC [address] [facility] (ABNORMAL) Glucose, POCT (12/26/2021 9:20 PM CDT) Analysis Performed At [facility]o [facility] [...] Provider LAB POCT ORDERABLES-MANUAL Performing Organization Address [facility] Phon e Number POC [facility] [address] [place] [address] [place] [address] [place] POC [address] [facility] (ABNORMAL) Glucose, POCT (12/26/2021 5:12 PM CDT) Analysis Performed At [facility] Time Signature Glucose, POCT, 152 (H) 70 [...] Provider LAB POCT ORDERABLES-MANUAL Performing Organization Address City/State/[facility] Code Phon e Number POC [facility] [address] [place] [address] [place] [address] [place] P[facility] [address] [facility] (ABNORMAL) Glucose, POCT (12/26/2021 12:37 PM CDT) [...] Provider LAB POCT ORDERABLES-MANUAL Performing Organization Address City/[facility]/ZIP Code Phon e Number POC [facility] [address] [place] [address] [place] [address] [place] P[facility] [address] [facility] (ABNORMAL) Glucose, POCT (12/26/2021 7:50 AM CDT) [...] Address City/State/ZIP Code Phon e Number POC [facility] [address] [place] [address] [place] [address] [place] P[facility] [address] [facility] (ABNORMAL) Glucose, POCT (12/26/2021 1:13 AM CDT) [...] Address City/State/ZIP Code Phon e Number POC [facility] [address] [place] [address] [place] [address] [place] [facility] [address] (ABNORMAL) Glucose, POCT (12/25/2021 9:21 PM CDT) [...] Provider LAB POCT ORDERABLES-MANUAL Performing Organization Address City/[facility] Phon e Number POC [facility] [address] [place] [address] [place] [address] [place] [facility] [address] (ABNORMAL) Glucose, POCT (12/25/2021 4:17 PM CDT) [...] Provider LAB POCT ORDERABLES-MANUAL Performing Organization Address City/[facility]/ZIP Code Phon e Number POC [facility] [address] [place] [address] [place] [address] [place] [facility] [address] (ABNORMAL) Glucose, POCT (12/25/2021 11:45 AM CDT) [...] Provider LAB POCT ORDERABLES-MANUAL Performing Organization Address City/[facility]/ZIP [facility] [place] Number [facility] [address] [place] [address] [place], [place] [address] [place] [address] POC [address] [facility] (ABNORMAL) Glucose, POCT (12/25/2021 8:56 AM CDT) [...] Provider LAB POCT ORDERABLES-MANUAL Performing Organization Address City/[facility] Phon e Number POC [facility] [address] [place] [address] [place] [address] [place] [facility] [address] (ABNORMAL) Glucose, [...] Provider LAB POCT ORDERABLES-MANUAL Performing Organization Address City/[facility]/ZIP [facility] [place]on [place] Number POC [facility] [address] [place] [address] [place] [address] [place] [facility] [address] [facility] Glucose, POCT (12/25/2021 6:53 AM CDT) Analysis [...] Provider LAB POCT ORDERABLES-MANUAL Performing Organization Address [facility] Phon e Number POC [facility] [address] [place] [address] [place] [address] [place] [facility] 200 [facility] Glucose, POCT (12/25/2021 5:57 AM CDT) P athologist Signature Glucose, POCT, 110 70 - 140 12/25/2021 [facility] B mg/dL 6:01 AM CDT Specimen Anatomical Collection Method Collection Time Receive d Time (Source) Location / / Volume Laterality Blood 12/25/2021 5:57 AM 2 6:01 CDT AM CDT Unknown Provider LAB POCT ORDERABLES-MANUAL Performing Organization Address City/[facility] Phon e Number POC [facility] [address] [place] [address] [place] [address] [place] [facility] 200 [facility] DX Cervical Spine 2-3 Views (12/25/2021 [...] Abdon Gill M.D. IMG DIAGNOSTIC IMAGING PROCE [facility] Glucose, POCT (12/25/2021 4:49 AM CDT) P athologist Signature Glucose, POCT, 131 70 - 140 12/25/2021 [facility] B mg/dL 4:52 AM CDT Specimen Anatomical Collection Method Collection Time Receive d Time (Source) Location / / Volume Laterality Blood 12/25/2021 4:49 AM 2 4:53 CDT AM CDT Unknown Provider LAB POCT ORDERABLES-MANUAL Performing Organization Address City/State/ZIP Code Phon e Number POC [facility] [address] [place] [address] [facility] [place] [address] [facility] [address] (ABNORMAL) Glucose, POCT [...] Address City/State/ZIP Code Phon e Number POC [facility] [address] [place] [address] [place] [address] [place] [facility] [address] (ABNORMAL) Glucose, POCT (12/25/2021 2:38 AM CDT) P athologist Signature Glucose, POCT, 255 (H) 70 - 140 12/25/2021 [facility] B mg/dL 2:41 AM CDT Specimen Anatomical Collection Method Collection Time Receive d Time (Source) Location / / Volume Laterality Blood 12/25/2021 2:38 AM 2 2:41 CDT AM CDT Unknown Provider LAB POCT ORDERABLES-MANUAL Performing Organization Address City/[facility]/ZIP Code Phon e Number POC [facility] [address] [place] [address] [place] [address] [place] [facility] [address] (ABNORMAL) Glucose, POCT (12/25/2021 1:47 AM CDT) P athologist Signature Glucose, POCT, 282 (H) 70 - 140 12/25/2021 [facility] B mg/dL 1:49 AM CDT Specimen Anatomical Collection Method Collection Time Receive d Time (Source) Location / / Volume Laterality Blood 12/25/2021 1:47 AM 2 1:49 CDT AM CDT Unknown Provider LAB POCT ORDERABLES-MANUAL Performing Organization Address City/[facility]/ZIP Code Phon e Number POC [facility] [address] [place] [address] [place] [address] [place] [facility] [address] (ABNORMAL) Glucose, POCT [...] Address City/State/ZIP Code Phon e Number POC [facility] [address] [place] [address] [place] [address] [place] [facility] [address] [facility] (ABNORMAL) Glucose, POCT (12/24/2021 11:45 PM CDT) P athologist Signature Glucose, POCT, 215 (H) 70 - 140 12/24/2021 [facility] B mg/dL 11:53 PM CDT Specimen Anatomical Collection Method Collection Time Receive d Time (Source) Location / / Volume Laterality Blood 12/24/2021 11:45 12/24/2021 PM CDT 11:53 PM CDT Unknown Provider LAB POCT ORDERABLES-MANUAL Performing Organization Address City/State/ZIP [facility] Phon e Number POC [facility] [address] [place] [address] [place] [address] [place] [facility] 200 [facility] (ABNORMAL) Glucose, POCT (12/24/2021 10:37 PM CDT) [...] LAB POCT ORDERABLES-MANUAL Performing Organization Address City/State/ZIP [facility] Phon e Number POC [facility] [address] [place] [address] [place] [address] [place] [facility] [address] [facility] (ABNORMAL) Glucose, POCT (12/24/2021 9:42 PM CDT) P athologist Signature Glucose, POCT, 165 (H) 70 - 140 12/24/2021 [facility] B mg/dL 9:49 PM CDT Specimen Anatomical Collection Method Collection Time Receive d Time (Source) Location / / Volume Laterality Blood 12/24/2021 9:42 PM 10/10/202 2 9:49 CDT PM CDT Unknown Provider LAB POCT ORDERABLES-MANUAL Performing Organization Address City/[facility]/ZIP Code Phon e Number POC [facility] [address] [place] [address] [place] [address] [place] [facility] 200 [facility] (ABNORMAL) Glucose, POCT (12/24/2021 8:41 PM [...] Provider LAB POCT ORDERABLES-MANUAL Performing Organization Address [facility] Phon e Number POC [facility] [address] [place] [address] [place] [address] [place] [facility] 200 [facility] (ABNORMAL) CBC without Differential (12/24/2021 8:41 [...] Organization Address City/State/ZIP Code Phon e Number [facility] - [address] [place] [address] [facility] [place] [address] [facility] 200 [facility] (ABNORMAL) Basic Metabolic Panel (12/24/2021 8:41 [...] M.D. LAB BLOOD ADD-ON Performing Organization Address City/[facility]/ZIP Code Phon e Number [facility] - [address] [place], [place] [address] [facility] [place] [address] [facility] 200 [facility] (ABNORMAL) Glucose, POCT (12/24/2021 7:46 PM CDT) P athologist Signature Glucose, POCT, 148 (H) 70 - 140 12/24/2021 [facility] B mg/dL 7:50 PM CDT Specimen Anatomical Collection Method Collection Time Receive d Time (Source) Location / / Volume Laterality Blood 12/24/2021 7:46 PM 2 7:50 CDT PM CDT Unknown Provider LAB POCT ORDERABLES-MANUAL Performing Organization Address City/[facility]/ZIP [facility] Phon e Number [facility] [address] [place] [address] [place] [address] [place] [facility] 200 [facility] (ABNORMAL) Glucose, POCT (12/24/2021 6:41 PM CDT) P athologist Signature Glucose, POCT, 163 (H) 70 - 140 12/24/2021 [facility] B mg/dL 7:30 PM CDT Specimen Anatomical Collection Method Collection Time Receive d Time (Source) Location / / Volume Laterality Blood 12/24/2021 6:41 PM 2 7:30 CDT PM CDT Unknown Provider LAB POCT ORDERABLES-MANUAL Performing Organization Address City/[facility]/ZIP [facility] Phon e Number POC [facility] [address] [place] [address] [place] [address] [place] [facility] [address] [facility] (ABNORMAL) Glucose, POCT (12/24/2021 5:35 PM CDT) [...] Provider LAB POCT ORDERABLES-MANUAL Performing Organization Address City/[facility]/ZIP Code Phon e Number POC [facility] [address] [place] [address] [place] [address] [place] [facility] 200 [facility] (ABNORMAL) Glucose, POCT (12/24/2021 4:33 PM CDT) P athologist Signature Glucose, POCT, 233 (H) 70 - 140 12/24/2021 [facility] B mg/dL 4:36 PM CDT Site ARTLINE 12/24/2021 [facility] 4:36 PM CDT Specimen Anatomical Collection Method Collection Time Receive d Time (Source) Location / / Volume Laterality Blood 12/24/2021 4:33 PM 2 4:36 CDT PM CDT Unknown Provider LAB POCT ORDERABLES-MANUAL Performing Organization Address [facility] Phon e Number POC [facility]ST [facility] [address] [place], [place] [address] [place] [address] [place] P[facility] [address] [place] [address] [place] Fluoro Less Than 1 Hour (12/24/2021 3:22 PM CDT) Specimen (Source) Anatomical Location Collection Method / Collectio n Time Received Time / Laterality Volume Narrative 152 HOS LOS RST - 12/24/2021 3:24 PM CDT This exam does not require a radiologist review or interpretation. Please refer to the patient's medical record on this date for clinical details. Wilmer eKarns M.D. IMG FLUOROSCOPY PROCEDURES Performing Organization Address City/[facility]/ZIP [facility] Phon e Number 152 HOS LOS RST Patient Status (12/24/2021 2:57 PM CDT) P athologist Signature Temperature 35.7 37.0 deg C 12/24/2021 [facility] 2:57 PM CDT FIO2 0.60 0.21=AIR 12/24/2021 [facility] 2:57 PM CDT Specimen Anatomical Collection Method Collection Time Receive d Time (Source) Location / / Volume Laterality Blood 12/24/2021 2:57 PM 2 2:57 CDT PM CDT Svetlana Hastings D.O. LAB BLOOD NON ADD-ON Performing Organization Address City/[facility]/ZIP [facility] Phon e Number [facility] - [address] [place], [place] [address] [place], [place] [address] [place] [address] (ABNORMAL) Glucose, Whole Blood (12/24/2021 2:57 PM CDT) athologist Signature Glucose 231 (H) 70 - 140 12/24/2021 [facility] mg/dL 2:58 PM CDT Specimen Anatomical Collection Method Collection Time Receive d Time (Source) Location / / Volume Laterality Blood (Blood, 12/24/2021 2:57 PM 12/25/19 2:57 Arterial Line) CDT PM CDT Milton Davis M.D. LAB BLOOD TROPONIN Performing Organization Address City/[facility] Phon e Number [facility] - [address] [place] [address] [address] [place] [address] Potassium, Blood (12/24/2021 2:57 PM CDT) athologist Signature Potassium, B 3.7 3.6 - 5.2 12/24/2021 ST[facility] mmol/L 2:58 PM CDT Specimen Anatomical Collection Method Collection Time Receive d Time (Source) Location / / Volume Laterality Blood (Blood, 12/24/2021 2:57 PM 12/25/19 22 2:57 Arterial Line) CDT PM CDT Milton Davis M.D. LAB BLOOD NON ADD-ON Performing Organization Address City/[facility]/ZIP Code Phon e Number [facility] - [address] [place], [place] [address] [place] [address] Sodium, B (12/24/2021 2:57 PM CDT) athologist Signature Sodium, B 135 135 - 145 12/24/2021 2:58 [facility] mmol/L PM CDT Specimen Anatomical Collection Method Collection Time Receive d Time (Source) Location / / Volume Laterality Blood (Blood, 12/24/2021 2:57 PM 12/25/19 22 2:57 Arterial Line) CDT PM CDT Milton Davis M.D. LAB BLOOD NON ADD-ON Performing Organization Address City/[facility] Phon e Number [facility] - [address] [place], [place] [address] [place] [address] Laboratories-[address] Calcium, Ionized (12/24/2021 2:57 PM CDT) athologist Signature Calcium, 4.85 4.65 - 5.30 12/24/2021 [facility] Ionized, B mg/dL 2:58 PM CDT Specimen Anatomical Collection Method Collection Time Receive d Time (Source) Location / / Volume Laterality Blood (Blood, 12/24/2021 2:57 PM 12/25/19 22 2:57 Arterial Line) CDT PM CDT Milton Davis M.D. LAB BLOOD NON ADD-ON Performing Organization Address [facility] Phon e Number [facility] - [address] [place], [place] [address] [place] [address] [facility]-[address] (ABNORMAL) Blood Gas with Coox, Arterial [...] LAB BLOOD NON ADD-ON Performing Organization Address City/[facility]/ZIP Code Phon e Number [facility] - [address] [place], [place] [address] [place] [address] [facility] [address] [facility] (ABNORMAL) Glucose, POCT (12/24/2021 2:16 PM CDT) P athologist Signature Glucose, POCT, 251 (H) 70 - 140 12/24/2021 [facility] B mg/dL 2:19 PM CDT Site ARTLINE 12/24/2021 [facility] 2:19 PM CDT Specimen Anatomical Collection Method Collection Time Receive d Time (Source) Location / / Volume Laterality Blood 12/24/2021 2:16 PM 2:19 CDT PM CDT Unknown Provider LAB POCT ORDERABLES-MANUAL Performing Organization Address City/[facility]/ZIP Code Phon e Number POC RST [facility] [address] [place], [place] [address] LABS P[facility] [place] [address] [place] [facility] [address] [place] [address] (ABNORMAL) Glucose, POCT (12/24/2021 11:46 AM CDT) [...] Address City/State/ZIP Code Phon e Number POC [facility] [address] [place] [address] [facility] [address] [place] P[facility] [address] IONM - EMG (12/24/2021 9:59 AM CDT) Specimen (Source) Anatomical Collection Method Collection Time Re ceived Time Location / / Volume Laterality 12/24/2021 10:00 AM CDT Narrative [facility] - 12/24/2021 3:40 PM CDT Table formatting from the original result was not included. 24-Dec-2021 ? Intraopera tive Monitoring ? Final Report Study Number: 2 EMG Assistant Professor Of Art: Indra Mallory . 127 or [phone] Referred by: WILMER KEARNS (127 or [phone]) Referred for: Referral Code: ?1957 RX: 6 SUMMARY: Somatosensory evoked potentials (SEPs), [...] surg ical suite. Geri Mallory (127 or [phone])/[facility] Surgery ? Staff Minutes Start-DateTime End-DateTim e Remote Simultaneous Supervision 131 10/ 13:02 PM WAREHOUSE RECEIVER 12/24/2021 15:13 PM WAREHOUSE RECEIVER Remote Exclusive (1:1) Supervision 0 12/2021 00:00 AM WAREHOUSE RECEIVER 12/24/2021 00:00 AM WAREHOUSE RECEIVER In-Room Exclusive (1:1) Supervision 0 00:00 AM WAREHOUSE RECEIVER 12/24/2021 00:00 AM WAREHOUSE RECEIVER Total Monitoring Time: 131 ?? This interpretation has been electron ically signed: Indra Mallory MD at 12/24/2021 3:16:44 PM CDT Procedure Note Indra Mallory M.D. - 12/24/2021Formatt ing of this note is different from the original. 24-Dec-2021 Intraoperative Monitoring Fi nal Report Study Number: 2 EMG Assistant Professor Of Art: Indra Mallory . 127 or [phone] Referred by: WILMER KEARNS (127 or [phone]) Referred for: Referral Code: 1958 RX: 1958 [...] surg ical suite. Geri Mallory (127 or [phone])/[facility] Surgery Staff Minutes Start-DateTime End-DateTim e Remote Simultaneous Supervision 131 12/15 13:02 PM WAREHOUSE RECEIVER 12/24/2021 15:13 PM WAREHOUSE RECEIVER Remote Exclusive (1:1) Supervision 0 12/2021 00:00 AM WAREHOUSE RECEIVER 12/24/2021 00:00 AM WAREHOUSE RECEIVER In-Room Exclusive (1:1) Supervision 0 00:00 AM WAREHOUSE RECEIVER 12/24/2021 00:00 AM WAREHOUSE RECEIVER Total Monitoring Time: 131 This interpretation has [...] oral, 4 times daily, First dose on 12/24/21 at 2100, Not to exceed 4 grams [...] subcutaneous, Every 24 hours, First dose on Tu12/25/21 at 0930 insulin glargine injection Given 12/26/2021 8:35 AM CDT 20 Units Right Lower Abdomen 20 Units 20 Units, subcutaneous, Every morning, First dose (after last modification) on Fri12/26/21 at 0900 insulin glargine injection Given 12/28/2021 [...] 80 mL/hr magnesium hydroxide suspension 30 mL (WI LK OF MAGNESIA) 30 mL, oral, Daily [...] Alfaro R.N.)1245 (Given - Provider: Ketan Alfaro RCandyN.)1713 (Given - Provider: Ranjana Roman RCandyN.)2122 (Given - Provider: Francie Pritchett R.N.) 0808 (Given - Provider: Jenni Bettencourt RCandyN.)1137 (Not Given - Provider: Yesenia Hawk RCandyNCandy - Reason: See Provider Order)1701 (Given - Provider: Toyin Wagner RLiss)2056 (Given - Provider: Toyin Wagner R.N.) 0843 (Given - Provider: Lala Rivers RCandyNCandy)1327 (Given - Provider: Lala Rivers R.N.) 1,000 mg, oral, 4 times daily, First dos e on Fri12/24/21 at 2100, Not to exceed 4 grams in 24 hours. ceFAZolin in dextrose (iso-os) IVPB 2 g (ANCEF) (CANCE LED) 0539 (New Bag - Provider: Svetlana Núñez R.NCandy) 2 g, intravenous, at 200 mL/hr, Administ [...] RCandyNCandy) 0843 (Given - Provider: Lala Rivers R.N.) [...] bg [phone] (Given - Provider: Ranjana Roman R.N.) 0758 (Given - Provider: Jenni Bettencourt R.N. - Comment: [facility] [place])1342 (Given - Provider: Yesenia Hawk R.N.)1800 (Given - Provider: Toyin Wagner R.N.) 0836 [...] glargine injection 20 Units (CANCELED) 0835 (Domingo mcmillan - Provider: Ketan Alfaro R.N.) 20 Units, subcutaneous, Every morning, F irst dose (after last modification) on Fri12/26/21 at 0900 insulin glargine injection 22 Units 0816 (Given - Provider: Jenni Bettencourt RCandyNCandy) 0853 (Given - Provider: Lala Rivers R.N.) 22 Units, subcutaneous, Every morning, F irst dose (after last modification) on Fri12/27/21 at 0900 polyethylene glycol powder packet 17 g (MIRALAX) 0804 (Given - Provider: Ketan Alfaro R.N.) 0810 (Not Given - Provider: Jenni plascencia R.N. - Reason: Patient/family refused)1137 (Given - Provider: [...] 1746 (Given - Pr ovider: Ranjana Roman R.N.) 1340 (Given - Provider: Yesenia Hawk R.N.) [...] 0803 (Given - Provi vanessa: Ketan Alfaro R.N.)2121 (Given - Provider: Francie Pritchett R.N.) 0809 (Given - Provider: Jenni Bettencourt R.N.)2055 (Given - Provider: Toyin Wagner R.N.) 0842 (Given - Provider: Lala Rivers R.N.) 150 mg, oral, 2 times daily, First dose on Fri12/25/21 at 0900 sennosides-docusate sodium 8.6-50 mg per tablet 1 tabl et (SENOKOT-S) 802 (Given - Provider: Ketan Alfaro R.N.)2121 (Given - Provider: Francie Pritchett R.N.) 809 (Given - Provider: Jenni Bettencourt R.N.)2056 (Given - Provider: Toyin Wagner R.N.) 0843 (Given - Provider: Lala Rivers R.N.) 1 tablet, oral, 2 times daily, First dos e on Fri12/24/21 at 2100, For constipation. Hold for diarrhea. venlafaxine XR 24 hr capsule 225 mg (EFFEXOR-XR) 08 (Given - Provider: Ketan Alfaro R.N.) 08 [...] 0536 (Given - Prov ider: Francie Pritchett R.NCandy) 5 mg, oral, 3 times daily PRN, [...] 1) 0312 (Given - Provider: Svetlana Núñez RCandyN.)0800 (Given - Provider: Ketan Alfaro RLiss)1247 (Not Given - Provider: Ketan Alfaro RJose Cruz. - Reason: Patient/family refused)1313 (See Alternative - Provider: Ketan Alfaro R.N.) 0233 (Given - Provider: Francie Pritchett R.N.)0755 (Given - Provider: Jenni Bettencourt RCandyN.) 0048 (Given - Provider: Mitzy Almaguer RCandyN.)0609 (Given - Provider: Mitzy Almaguer R.N.)1453 (Given - Provider: Lala Rivers RCandyNCandy) 10 mg, oral, Every 4 hours PRN, severe p ain or score 7-10 of 10, or pain greater than comfort goal if other analgesics fail, Starting on Fri12/24/21 at 1831, Maximum dose of 10 mg in 4 hours 1852 (Given - Provider: Ranjana Roman R.N.) oxyCODONE IR tablet 5 mg (ROXICODONE)(Linked Group 1) 0312 (See Alternative - Provider: Svetlana Núñez RCandyN.)0800 (See Alternative - Provider: Ketan Alfaro RCandyN.)1247 (See Alternative - Provider: Ketan Alfaro R.N.)1313 (Given - Provider: Ketan Alfaro R.N.) 0233 (See Alternative - Provider: Francie Pritchett R.N.)0755 (See Alternative - Provider: Jenni Bettencourt R.N.) 0048 (See Alternative - Provider: Mitzy Almaguer R.N.)0609 (See Alternative - Provider: Mitzy Almaguer R.N.)1453 (See Alternative - Provider: Lala Rivers RLiss) 5 mg, oral, Every 4 hours PRN, moderate pain or score 4-6 of 10, if other analgesics fail, Starting on Fri12/24/21 at 1831, Maximum dose of 10 mg in 4 hours 185 (See Alternative - Provider: Ranjana Roman R.N.) traZODone tablet 100 mg (DESYREL) 100 mg, [...]
--- OUTSIDE RECORDS SUMMARY | 2022-01-21 08:49 | XMS_ITS | Encounter Summary ---
:1955 Author Organization [facility] Address [address] [place] [address] Care Team Providers Name Role Phone Unavailable Primary Care Provider Unavailable Encounter Details Date Type Department Care Team Description 01/12/2022 Documentation Department of Orthopedic Alix hammond, Surgery in [place], Tatum Hammond M.D. [place] [address] [facility] [address] [place] [phone] (Wo rk) Social History Tobacco Use Types [...] do you attend jain or Never 2021 tenriism services? Do you [...] have completed or the highest Ti[employer], MEd, ESTATE ATTORNEY, [employer]IL[employer]) degree you have received? Sex Assigned at Date Recorded Female 07/21/2017 2:58 PM CDT documented as of this encounter Plan of Treatment Upcoming Encounters Date Type Specialty Care Team Description 02/04/2022 Office Visit Orthopedic Surgery Deon Herrera M.D. [address] [place] [phone] (Wo rk) documented as of this encounter Visit Diagnoses Not on filedocumented in this encounter Additional Health Concerns Assessment Noted Time PHQ-9 Depression Total Score: 5 04/29/2016 10:10 AM ANATOLIY T documented as of this encounter
--- OUTSIDE RECORDS SUMMARY | 2022-01-21 08:49 | XMS_ITS | Encounter Summary ---
:1955 Author Organization [facility] Address [address] [place] [address] Care Team Providers Name Role Phone Unavailable Primary Care Provider Unavailable Encounter Details Date Type Department Care Team Description 01/13/2022 Clinical Communication Department of Tho Heredia, Orthopedic Surgery in [place], [place] [address] [facility] [address] [place] [phone] Social History Tobacco Use Types Packs/Day Years [...] do you attend buddhism or Never 2021 zoroastrianism services? Do you [...] have completed or the highest Tiara, MEd, AUTO SELF SERVICE STATION ATTENDANT, ODILIA) degree you have received? Sex Assigned at Date Recorded Female 07/21/2017 2:58 PM CDT documented as of this encounter Miscellaneous Notes Telephone Encounter - Tho Heredia M.D. - 01/13/2022 3:42 PM CDT Orthopedic Spine surgery ATC contact note I received a call about this patient from a provider at [facility]. She is a 66-year-old female who is status post cervical laminoplasty on December [address] Herrera. She was admitted 2 days ago with fever and confusion. He has been looking for a source of infection.Initially it was thought to be pneumonia but a recent chest CT was clear. A CT of the neck was obtained and there does appear to be a fluid collection deep to the fascia in the posterior cervical spine. From a laboratory standpoint, he reports that the white blood cell count is 20. CRP is 19. He presently does not have another clear source for her infection. She is medically doing well and not currently septic. Blood and urine cultures are pending. Per his report, the posterior cervical incision is fully approximated and without drainage. There issome erythema around the wound. She does not have any new neurologic changes. I reviewed the above with her surgeon Dr. Herrera. He does not think the fluid is consistent with infection if her incision is dry. He would not recommend aspirating the fluid as that could introducebacteria into the area. Dr. Herrera's team will be in contact to arrange follow-up. Tho Heredia MD Orthopedic Spine Surgery Fellow Pager [phone] documented in this encounter Plan of Treatment Upcoming Encounters Date Type Specialty Care Team Description 02/04/2022 Office Visit Orthopedic Surgery Deon Herrera M.D. [address] [place], [place] [phone] (Wo rk) documented as of this encounter Visit Diagnoses Not on filedocumented in this encounter Additional Health Concerns Assessment Noted Time PHQ-9 Depression Total Score: 5 04/29/2016 10:10 AM ANATOLIY Reece documented as of this encounter
--- OUTSIDE RECORDS SUMMARY | 2022-01-21 08:50 | XMS_ITS | Encounter Summary ---
:1955 Author Organization [facility] Address [address] [place] [address] Care Team Providers Name Role Phone Unavailable Primary Care Provider Unavailable Encounter Details Date Type Department Care Team Description 12/24/2021 Anesthesia Event RST ROMB MAIN OR Milton Davis M.D. [address] [place] [address] [address] [email or web address] Svetlana Hastings D.O. [address] [place] [address] [place] [address] Anesthesia Record Procedure Summary Procedure Name Responsible Anesthesia Start Anesthesia Stop Anesthesiologist Time Time LAMINOPLASTY POSTERIOR Mliton Davis M.D. 12/24/21 1241 1 1651 CERVICAL [...] h andoff to the receiving staff during [facility] ch we 1. Identified the patient [...] 12/24/211212 by 12/25/21206 b y 12/24/21; Placement Luis E Guillory P ellecchia Time: 1213; Catheter L, R.N. Size: 22 G; Orientation: Anterior, Left, Lower; Location: Forearm; Site Prep: Chlorhexidine (Preferred); Technique: Anatomical landmarks; Inserted by: [facility]; Insertion Attempts: 1; Removal Date: 12/25/21; Removal [...] do you attend taoism or Never 2021 rastafari services? Do you [...] have completed or the highest Tiara, MEd, SUPERVISOR AIRPLANE FLIGHT ATTENDANT, ODILIA) degree you have received? Sex Assigned at Date Recorded Female 07/21/2017 2:58 PM CDT documented as of this encounter OR Notes Anesthesia Postprocedure Evaluation - Milton Davis M.D. - 12/24/2021 4:57 PM CDT Patient: Yaz Adames Procedure Summary Date: 12/24/21 Room / Location: [place] [id number] / [facility] in [place], [place] Anesthesia Start: 1241 Anesthesia Stop: 165 [...] ETT location: oral VL device: glide scope [place] scope blade size: 3 Adult tube [...] fellow participated in the procedure, and the residential sales consultant was present for the entire procedure. Anesthesia Preprocedure Evaluation - Milton Davis M.D. - 12/24/2021 12:06 PM CDT Preprocedure Anesthesia & H&P Assessment Procedure Summary Date/Time: 12/24/21 2565 Procedure: LAMINOPLASTY POSTERIOR CERVICAL C3-7. (Spine Cervical) Diagnosis: Myelopathy Cervical (HCC) [G95.9] Pre-op diagnosis: Myelopathy Cervical (HCC) [G95.9]. Location: [address] / [facility] in [place], [place] Providers: Buster Herrera M.D. Pertinent components [...] Diabetes Mellitus Type 2 With Diabetic Neuropathy ([facility]) (+) Nodule Thyroid PSYCH (+) Depression Major [...] with patient /legal guardian or through an professor of religion. Risks/Benefits/Alternatives of Blood transfusion discussed with patient [...] Orthopedic Surgery Deon Herrera M.D. [address] [place] [phone] (Wo rk) documented as of this encounter Procedures Procedure Name Priority Date/Time Associated Comments Diagnosis LDA ANE ARTERIAL LINE Routine 12/24/2021 12:59 Re sults for this INSERTION PM CDT procedure are i n the results section. [place] ARTL CATH/CNULA Routine 12/24/2021 12:59 Resul ts for this MONITOR PERC PM CDT procedure are i n the results section. LDA ANE ENDOTRACHEAL Routine 12/24/2021 12:47 Res ults for this AIRWAY PM CDT procedure are i n the results section. documented in this encounter Results [place] ARTL CATH/CNULA MONITOR PERC, LDA ANE ARTERIAL [...] fellow participated in the procedure, and the residential sales consultant was present for the entire procedure. [...] ETT location: oral VL device: glide scope [place] scope blade size: 3 Adult tube [...]
--- OUTSIDE RECORDS SUMMARY | 2022-01-21 08:50 | XMS_ITS | Encounter Summary ---
:1955 Author Organization [facility] Address [address] [place] [address] Care Team Providers Name Role Phone Unavailable Primary Care Provider Unavailable Reason for Visit Outpatient (Routine) - Closed Specialty Diagnoses / Procedures Referred By Contact Refer red To Contact [facility] [address] [place] [address] Referral ID Status Reason Start Date Expiration Date Visits Requ ested Visits Authorized [id number] Closed 11/14/2021 11/13/2024 1 1 Encounter Details Date Type Department Care Team Description 12/21/2021 Office Visit Department of Buster Herrera Cervical D isc Disorder Orthopedic [place] Myelopathy [place], [place] [address] [facility] (Primary Dx) [address] [place] [phone] Social History Tobacco Use Types Packs/Day Years [...] do you attend episcopalian or Never 2021 jainism services? Do you [...] have completed or the highest Tiara, MEd, MAORI LIAISON ADVISER, ODILIA) degree you have received? Sex Assigned [...] Buster Herrera M.D. CT CT Job ID: [id number] documented in this encounter Plan of Treatment Upcoming Encounters Date Type Specialty Care Team Description 02/04/2022 Office Visit Orthopedic Surgery Deon Herrera M.D. [address] [place] [phone] (Wo rk) documented as of this encounter Visit Diagnoses Diagnosis Cervical Disc Disorder With Myelopathy - Primary documented in this encounter Additional Health Concerns Assessment Noted Time PHQ-9 Depression Total Score: 5 04/29/2016 10:10 AM CS T documented as of this encounter
--- OUTSIDE RECORDS SUMMARY | 2022-01-21 08:50 | XMS_ITS | Encounter Summary ---
:1955 Author Organization [facility] Address [address] [place] [address] Care Team Providers Name Role Phone Unavailable Primary Care Provider Unavailable Reason for Referral Outpatient (Routine) - Closed Specialty Diagnoses / Procedures Referred By Contact Refer red To Contact Diagnoses Preoperative Exam Buster Herrera M.D. [facility] Procedures DX Cervical Spine 4-[address] Views [address] [place] [phone] Referral ID Status Reason Start Date Expiration Date Visits Requ ested Visits Authorized [id number] Closed 11/14/2021 11/14/2022 1 1 Reason for Visit Outpatient (Routine) - Closed Specialty Diagnoses / Procedures Referred By Contact Refer red To Contact Diagnoses Preoperative Exam Buster Herrera M.D. [facility] Procedures DX Cervical Spine 4-5 Views [address] [place] [phone] Referral ID Status Reason Start Date Expiration Date Visits Requ ested Visits Authorized [id number] Closed 11/14/2021 11/14/2022 1 1 Encounter Details Date Type Department Care Team Description 12/18/2021 Hospital Encounter Department of Buster Herrera perative Exam Radiology, Jay Lang M.D. Building, in [address] [place] [address] [place] [phone] [place], [place] [phone] (Work) [phone] Social History Tobacco Use Types Packs/Day Years [...] do you attend presybeterian or Never 2021 gnosticist services? Do you [...] have completed or the highest Tiara, MEd, OPTICAL SALES ASSOCIATE, ODILIA) degree you have received? Sex Assigned [...] 365 test 0 12/28/2021 strips blood-glucose meter [facility] Test as directed 1 each 0 12/28 [...] Orthopedic Surgery Deon Herrera M.D. [address] [place], [place] [phone] (Wo rk) documented as [...] increases in flexion. Buster [facility] JOSE BOYD documented in this encounter Visit Diagnoses Diagnosis Preoperative Exam documented in this encounter Additional Health Concerns Assessment Noted Time PHQ-9 Depression Total Score: 5 04/29/2016 10:10 AM CS T documented as of this encounter
--- OUTSIDE RECORDS SUMMARY | 2022-01-21 08:50 | XMS_ITS | Encounter Summary ---
:1955 Author Organization [facility] Address [address] [place] [address] Care Team Providers Name Role Phone Unavailable Primary Care Provider Unavailable Reason for Referral MRI/CAT/PET Scan (Routine) - Authorized Specialty Diagnoses / Procedures Referred By Contact Refer red To Contact Radiology Diagnoses Pain Cervical Arthrodesis Status Buster Herrera M.D. [facility] Procedures CT Cervical Spine without IV Contrast [address] [place], [place] [phone] Referral ID Status Reason Start Date Expiration Date Visits V isits Requested Authorized [id number] Authorized 12/26/2021 12/26/2022 1 1 Outpatient (Routine) - Authorized Specialty Diagnoses / Procedures Referred By Contact Refer red To Contact Diagnoses Pain Cervical Buster Herrera M.D. [facility] Procedures DX Cervical Spine 4-5 Views [address] [place] [address] Referral ID Status Reason Start Date Expiration Date Visits V isits Requested Authorized [id number] Authorized 12/26/2021 12/26/2022 1 1 Outpatient (Routine) - Authorized Specialty Diagnoses / Procedures Referred By Contact Refer red To Contact Orthopedic Surgery Diagnoses Pain Cervical Buster Herrera [facility] M.D. [address] [place] [address] Referral ID Status Reason Start Date Expiration Date Visits V isits Requested Authorized [id number] Authorized 12/26/2021 12/25/2024 1 1 Outpatient (Routine) - Authorized Specialty Diagnoses / Procedures Referred By Contact Refer red To Contact Diagnoses Pain Cervical Buster Herrera M.D. [facility] Procedures DX Cervical Spine 4-5 Views [address] [place] [phone] Referral ID Status Reason Start Date Expiration Date Visits V isits Requested Authorized [id number] Authorized 12/26/2021 12/26/2022 1 1 Outpatient (Routine) - Authorized Specialty Diagnoses / Procedures Referred By Contact Refer red To Contact Orthopedic Surgery Diagnoses Pain Cervical Buster Herrera [facility] M.D. [address] [place] [address] Referral ID Status Reason Start Date Expiration Date Visits V isits Requested Authorized [id number] Authorized 12/26/2021 12/25/2024 1 1 Outpatient (Routine) - Authorized Specialty Diagnoses / Procedures Referred By Contact Refer red To Contact Diagnoses Pain Buster Dai M.D. [facility] Procedures DX Cervical Spine 4-5 Views [address] [place] [address] Referral ID Status Reason Start Date Expiration Date Visits V isits Requested Authorized [id number] Authorized 12/26/2021 12/26/2022 1 1 Outpatient (Routine) - Authorized Specialty Diagnoses / Procedures Referred By Contact Refer red To Contact Orthopedic Surgery Diagnoses Pain Cervical Buster Herrera [place] [facility] [place] [address] [place] [address] Referral ID Status Reason Start Date Expiration Date Visits V isits Requested Authorized [id number] Authorized 12/26/2021 12/25/2024 1 1 Outpatient (Routine) - Authorized Specialty Diagnoses / Procedures Referred By Contact Refer red To Contact Diagnoses Pain Cervical Buster Herrera M.D. [facility] Procedures DX Cervical Spine 2-[address] Views [address] [place] [phone] Referral ID Status Reason Start Date Expiration Date Visits V isits Requested Authorized [id number] Authorized 12/26/2021 12/26/2022 1 1 Outpatient (Routine) - Authorized Specialty Diagnoses / Procedures Referred By Contact Refer red To Contact Orthopedic Surgery Diagnoses Pain Cervical Buster Herrera [place] [facility] [place] [address] [place] [address] Referral ID Status Reason Start Date Expiration Date Visits V isits Requested Authorized [id number] Authorized 12/26/2021 12/25/2024 1 1 Outpatient (Routine) - Closed Specialty Diagnoses / Procedures Referred By Contact Refer red To Contact Orthopedic Surgery Diagnoses Pain Cervical Buster Herrera [place] [address] [place] [address] Referral ID Status Reason Start Date Expiration Date Visits Requ ested Visits Authorized [id number] Closed 12/26/2021 12/25/2024 1 1 Reason for Visit Reason Comments Post-op Patient had surgery on Niels oplasty Posterior Cervical C3-7 Encounter Details Date Type Department Care Team Description 12/26/2021 Clinical Communication Department of Javier Post -op (Patient had Orthopedic Surgery Buster Lang M.D. surgery on in [place] [address] [address] [facility] Laminoplasty [place], [place] Posterior Cervical [address] [facility] [phone] C3-7) [place], [place] [phone] (Work) [phone] Social History Tobacco Use Types Packs/Day Years [...] do you attend congregational or Never 2021 spiritism services? Do you [...] have completed or the highest Tiara, MEd, PARACHUTE CUSHION INSTALLER, ODILIA) degree you have received? Sex Assigned [...] Office Visit Orthopedic Surgery Deon Herrera M.D. [address] [place] [phone] (Wo rk) Scheduled Orders Name Type Priority Associated Diagnoses [...]
--- OUTSIDE RECORDS SUMMARY | 2022-01-21 08:50 | XMS_ITS | Encounter Summary ---
:1955 Author Organization [facility] Address [address] [place] [address] Care Team Providers Name Role Phone Unavailable Primary Care Provider Unavailable Encounter Details Date Type Department Care Team Description 12/24/2021 Surgery RST ROMObi ROCHA OR Wilmer Kearns LAMINOPLASTY POSTERIOR [address] [facility] Flynn Lang CERVICAL C3-7. [place], [place] [address] [facility] [address] [place], [place] [phone] Social History Tobacco Use Types Packs/Day Years [...] do you attend islam or Never 2021 jewish services? Do you [...] or slept in a fci (including now)? Education Answer Date Recorded What is the highest level of school Master's degree (e.g., M Dago, MS, 07/15/2020 you have completed or the highest Tiara, MEd, POWER LINE LINEMAN, ODILIA) degree you have received? Sex Assigned [...] PM CDT DISCHARGE SUMMARY BRIEF OVERVIEW Hospital: [facility] Discharge Provider: Wilmer Kearns M.D. [...] James T, M.D. RSTROMB OR DISCHARGE DISPOSITION Jail Facility OUTPATIENT FOLLOW UP For appointment details [...] recovery progresses, you may resume the elliptical fitness trainer. NO RUNNING or SPORTS, until we [...] for anyone undergoing this surgery. Ifyou can flare worker, you can begin doing light desk/phone [...] Dr. Kearns's service through the [facility] head kiln operator at . THANK YOU AND GET [...] Please have Provider [facility] Care at [facility] review blood glucoses at least twice weeklyto determine if changes in insulin therapy are indicated, or earlier if blood glucose values are consistently out of goal range. As Diabetes and Nutritional Education is important to your diabetes management, yearly follow up with a local Rake Operator and Dietitian is recommended. Please check with [...] Discharge information provided on 12/25/2021 Contact information: [facility], [address], documented in this encounter Medications [...] in agreement with the plan. DCS pager [phone] will continue to follow. Call primary service for diabetes concerns between [phone]. Primary service to contact DCS via hospital head kiln operator for questions. Yanet Sanchez N - [...] based on her usual exercise protocol called joblocal channel. Patient opted to perform exercise called [...] Standardized Score: 40.22 Interpretation: Clinicians answer the [facility] Inpatient Short Form based on observed patient [...] be changed. Transportation will be provided by [employer] ([phone]). Transportation will be paid for by patient. Daughter was called as well who informed SW that patient has a credit card with her ipad or another one in her suitcase. . Destination - Admitted Since 12/24/2021 Service Provider Selected Services Address Phone Fax Patient Preferred [facility] [address] [place] [address] [phone] -- Contact: Nursing Transportation oxygen: No oxygen [...] Orthopedic Spine Surgery Progress Note Orthopedic Service: [facility] Admission Day: 12/24/2021 SUBJECTIVE Mrs. [...] Deltoid?? Biceps?? Triceps Wrest ext Wrist flex Real Estate Assessor Fing Abd?? R?? 5 5 5 5?? [...] time on the weekend, please contact the [facility] Orthopedic Surgery house resident educational psychology teacher at [phone]. Barbara Dyson, R.R.T., L.R.T. - 12/27/2021 10:34 [...] Climbing 3-5 steps with a railing?: Total -[facility] Basic Mobility (V.2) Raw Score: 16 -[facility] Basic Mobility (V.2) Standardized Score: 38.32 Interpretation: Clinicians answer the -[facility] Inpatient Short Form based on observed [...] activity, Neuromuscular re-education, Gait training, Self-care/home management DE ICER ELEMENT WINDER Visit Trackin Billing: Time Spent with Patient [...] Selected Services Address Phone Fax Patient Preferred [facility] Pending - Request Sent N/A [address] [facility] [address] -- [facility] Pending - Request Sent N/A [address] [facility] [address] -- [facility] Pending - Request Sent N/A [address] [facility] [id number] -- [facility] Pending - Request Sent N/A [address] [facility] [address] -- [facility] Pending - Request Sent N/A [address] [facility] [phone] -- [facility] Pending - Request Sent N/A [address] [facility] [address] -- [facility] Declined Bariatric N/A [address] [facility] [address] -- ASSESSMENT / PLAN ASSESSMENT Patient was [...] Completion Date - OT: 12/25/21 Outcome Measures [facility] Inpatient Short Form: Putting on and taking [...] Standardized Score: 40.22 Interpretation: Clinicians answer the [facility] Inpatient Short Form based on observed patient [...] Orthopedic Spine Surgery Progress Note Orthopedic Service: [facility] Admission Day: 12/24/2021 SUBJECTIVE Mrs. [...] Deltoid?? Biceps?? Triceps Wrest ext Wrist flex Real Estate Assessor Fing Abd?? R?? 5 5 5 5?? [...] time on the weekend, please contact the [facility] Orthopedic Surgery house resident educational psychology teacher at [phone]. Barbara Dyson R.R.T., L.R.T. - 12/26/2021 10:49 [...] of thyroid cancer. Reviewed this with our product development consultant Dr. Pastor who recommends that a [...] in agreement with the plan. DCS pager [phone] will continue to follow. Call primary service for diabetes concerns between [phone]. Primary service to contact DCS via hospital head kiln operator for questions. Yanet Sanchez N - [...] Completion Date - OT: 12/25/21 Outcome Measures [facility] Inpatient Short Form: Putting on and taking [...] Orthopedic Spine Surgery Progress Note Orthopedic Service: [facility] Admission Day: 12/24/2021 SUBJECTIVE Mrs. [...] Deltoid?? Biceps?? Triceps Wrest ext Wrist flex Real Estate Assessor Fing Abd?? R?? 4 5 5 5?? [...] time on the weekend, please contact the [facility] Orthopedic Surgery house resident educational psychology teacher at [phone]. Sahar Hamilton R.R.T., C.R.T., L.R.T. - 12/25/2021 10:42 [...] is a 66 y.o. female [facility] on 12/24/2021 9:54 AM for cervical laminoplasty [...] N/A GI: Bowel regimen ordered. Last BM DE ICER ELEMENT WINDER. Dietary Orders (From admission, onward) Start Ordered [...] bowel regimens Foster Seals Pharm.D., R.Ph. Pager: [phone] Dilshad Mendoza APRN C.N.PCandy, D.N.P. - 12/25/2021 [...] in agreement with the plan. DCS pager [phone] will continue to follow. Call primary service for diabetes concerns between [phone]. Primary service to contact DCS via hospital head kiln operator for questions. Tho Heredia M.D. - 12/25/2021 5:25 AM CDT Orthopedic Spine Surgery Progress Note Orthopedic Service: [facility] Admission Day: 12/24/2021 SUBJECTIVE Ms. [...] Deltoid?? Biceps?? Triceps Wrest ext Wrist flex Real Estate Assessor Fing Abd?? R?? 4 5 4 5?? [...] time on the weekend, please contact the [facility] Orthopedic Surgery house resident educational psychology teacher at [phone]. Kermit Shin R.R.T., L.R.T. - 12/24/2021 11:30 PM CDT 12/24/21 7050 Ventilator Parameters BPAP/CPAP Mode Auto-CPAP O2 Flow Rate 2 L/min EPAP (Min) 5 cm H2O EPAP (Max) 15 cm H2O Humidification Heated humidifier Pt placed on CPAP (hosp unit) for night & tolerating well. Will continue to follow & assist as needed. Electronically signed by: Kermit Shin R.R.T., L.R.T. 12/25/21 1:18 AM CDT Tho Heredia M.D. - 12/24/2021 5:28 PM CDT Orthopedic Spine Surgery Progress Note Orthopedic Service: [facility] Admission Day: 12/24/2021 SUBJECTIVE Seen [...] Deltoid?? Biceps?? Triceps Wrest ext Wrist flex Real Estate Assessor Fing Abd?? R?? 4 4 4 5?? [...] time on the weekend, please contact the [facility] Orthopedic Surgery house resident educational psychology teacher at [phone]. Brodie Calderón, Pharm.D., R.Ph. - 12/24/2021 10:49 [...] our ownership and financial relationship of the [facility] beds, home health, and hospice agencies. Reviewed Medicare coverage and provided a list of options. Destination - Admitted Since 12/24/2021 Service Provider Request Status Selected Services Address Phone Fax Patient Preferred [facility] Pending - Request Sent N/A [address] [facility] [address] -- [facility] Pending - Request Sent N/A [address] [facility] [address] [phone] -- [facility] Pending - Request Sent N/A [address] [facility] [address] -- ASSESSMENT / PLAN ASSESSMENT Patient is [...] lives nearby) Receives Help From: Family, Friend(s), rolling attendant (Daughter stops by for 2 hours 5x/week; LABOR LAW PROFESSOR helps with bathing 2x/week) ADL Assistance: Required assistance ADL Assistance Comments: Performs dressing and grooming tasks without assistance. Requires assistance for showers IADL/Homemaking Assistance: Required assistance IADL/Homemaking Assistance Comments: Daughter assists with cleaning, cooking, home management. Friend assists with medication management Driving: Does not drive Occupational Role: Retired Leisure Interests: Engages in seated exercise program daily Prior Mobility/Functional Transfers Level of [place]: Modified independent Gait Devices/Wheelchair Used: Other (Comment) [...] needs met and questions answered. Outcome Measures [facility] Inpatient Short Form: -[facility] Basic Mobility (V.2) How much help [...] Climbing 3-5 steps with a railing?: Total -[facility] Basic Mobility (V.2) Raw Score: 15 -[facility] Basic Mobility (V.2) Standardized Score: 36.97 Interpretation: Clinicians answer the -[facility] Inpatient Short Form based on observed [...] program daily Prior Mobility/Functional Transfers Level of [place]: Modified independent Gait Devices/Wheelchair Used: Other (Comment) [...] Completion Date - OT: 12/25/21 Outcome Measures [facility] Inpatient Short Form: Putting on and taking [...] Standardized Score: 38.66 Interpretation: Clinicians answer the [facility] Inpatient Short Form based on observed patient [...] by: Adrianne Camp L.I.Natanael.SCandyWCandy, M.S.W. Primary Language: Brazilian Person(s) present during interview: Person(s) Present During Interview: patient History of Present Illness #1 Myelopathy Cervical (HCC) Social History Support System: children Patient's Home Environment: two/multiple story house Finance/Insurance Primary insurance: MEDICARE A AND B Secondary insurance: [employer] Does the patient have any financial concerns? no benefits: No Advance Directives Legal Decision Maker: Self Advance Directives: Power of Wastewater Treatment Plant Attendant for health care Advance Directives Status: Not Activated OBJECTIVE Baseline Functional Status Baseline Activities of Daily Living Mobility: Independent Dressing: Independent Feeding: Independent Bathing: Needs assistance Grooming: Independent Toileting: Independent Behavior: Calm, Pleasant, Other (comment) (fatigued) Communication: Talks, Understands speaking, Understands Brazilian Shopping: Dependent Transportation: Support from family Medication Management: Independent Housekeeping: Dependent Meal Prep: Needs assistance Managing Finances: Independent Assistive Devices: Eyeglasses, Walker - four wheeled, Wheelchair - manual, Dentures Baseline Services/Resources Primary care clinic and provider: Anoop Emery from [facility] in [place] [phone] Additional Resources: NA Anticipated Needs Functional Status: Bathing, Mobility, Meal preparation, Housekeeping, Shopping, Transportation use (drive car, use taxi/bus) Anticipated Modifications to the Patient's Home: None Transportation Needs: Support from family Does the patient need discharge transport arranged?: No Ride and Caregiver Arranged: Yes Ride Caregiver Provider: Lia Moscoso Phone Number for Ride/Caregiver: [phone] Anticipated Discharge Destination: Jail Facility ASSESSMENT / PLAN Assessment: The financial management met with Yaz Adames to discuss her [...] have previously been completed by patient's daughter. financial management discussed the patient's potential needs at dismissal based on their home setting, previous needs and responsibilities, homebound status, and relevant assessmentswith the patient. Support will be provided by patient's daughter. The patient demonstrated understanding when discussing her home going plans and anticipated needs. Patient expressed wanting to go to a rehab facility upon discharge. Yaz has requested admission to [facility] in [place], [place] ([phone]) as her first choice. Patient also identifies [facility] ([phone]) or [facility] ([phone]) as alt ernative options for SNF admission. Physical and occupational therapy have yet to evaluate the patient so financial management will await their recommendations for further discharge [...] the same level. At this time, the financial management will await physical and occupational therapy's recommendations to assess if a rehab facility would be feasible, as this is the patient's preferred discharge plan. After reviewing the patient's chart and meeting with the patient, the financial management deemed the LACE+/readmission questions were not necessary. [...] dismissal will be provided by family--Lia . financial management recommended private pay home services such as housekeeping, assistance with ADLs, private caregivers, Life Alert services, etc. and reaching out to family, friends, and neighbors for assistance. financial management provided information regarding the dismissal process. financial management placed or requested the following hospital-based consult orders and/or referrals: None. financial management will continue to assess for homegoing needs with the interdisciplinary team. financial management encouraged the patient to reach out with [...] Thank you for the consult. DCS pager [phone] will follow. Call primary service for diabetes concerns between [phone]. Primary service to contact DCS via hospital head kiln operator for questions. documented in this encounter [...] with all her belongings to go to [facility]. Svetlana Núñez R.N. [...] 3:40 PM CDT SURGEON: Dr. Wilmer Kearns. SHELLAC POLISHER: Dr. Tho Heredia. PRE-OPERATIVE DIAGNOSIS Progressive cervical [...] Obstructive sleep apnea. Restless legs syndrome. A physician assistant psychiatry actively participated in one or more of the following: Opening, exposure and visualization during the case, maintaining hemostasis, wound closure. INDICATIONS: Treatment of pain, prevention of neurologic decline. PROCEDURE(S): Application of Shaver-Wells tongs for positioning. Neurophysiologic monitoring to include running EMG, SSEPs, and MEPs. Dome laminectomy, C3, C7. Laminoplasty C4-6. ANESTHESIA: General endotracheal. IMPLANTS: Inspirotec laminoplasty set. HISTORY OF PRESENT ILLNESS: Ms. [...] Wilmer Kearns M.D. CT CT Job ID: [id number]/[facility] documented in this encounter Miscellaneous Notes Hospital [...] Visit Orthopedic Surgery Deon Kearns M.D. [address] [place], [place] [phone] (Wo rk) Scheduled Referrals [...] CERVICAL PM CDT Cervical (HCC) Case Notes riding silks custodian 1003 GLUCOSE POCT, B Routine 12/24/2021 11:46 [...] Address City/State/ZIP Code Phon e Number POC [facility] [address] [place] [address] [place] [address] [place] [facility] [address] (ABNORMAL) Glucose, POCT (12/28/2021 7:41 AM CDT) Analysis Performed At Patho logist Time Signature Glucose, POCT, 226 (H) 70 - 140 12/28/2021 [facility] B mg/dL 7:48 AM CDT Site Capillary 12/28/2021 [facility] 7:48 AM CDT Last Intake 3-4 hours 12/28/2021 [facility] 7:48 AM CDT Specimen Anatomical Collection Method Collection Time Receive d Time (Source) Location / / Volume Laterality Blood 12/28/2021 7:41 AM 2 7:49 CDT AM CDT Unknown Provider LAB POCT ORDERABLES-MANUAL Performing Organization Address City/State/ZIP Code Phon e Number POC [facility] [address] [place] [address] [place] [address] [place] [facility] [address] (ABNORMAL) Glucose, POCT (12/28/2021 3:15 AM CDT) Analysis Performed At Patho logist Time Signature Glucose, POCT, 181 (H) 70 [...] Provider LAB POCT ORDERABLES-MANUAL Performing Organization Address City/[facility] Phon e Number POC [facility] [address] [place] [address] [place] [address] [place] [facility] [address] [facility] (ABNORMAL) Glucose, POCT (12/27/2021 9:01 PM CDT) [...] Provider LAB POCT ORDERABLES-MANUAL Performing Organization Address City/[facility]/ZIP [facility] Phon e Number POC [facility] [address] [place] [address] [place] [address] [place] [facility] [address] (ABNORMAL) Glucose, [...] Provider LAB POCT ORDERABLES-MANUAL Performing Organization Address City/[facility] Phon e Number POC [facility] [address] [place] [address] [place], [place] [address] [place] [address] POC [address] [facility] (ABNORMAL) Glucose, POCT (12/27/2021 12:54 PM CDT) Analysis Performed At Path logis Time Signature Glucose, POCT, 205 (H) 70 [...] Provider LAB POCT ORDERABLES-MANUAL Performing Organization Address [facility] Phon e Number POC [facility] [address] [place] [address] [place] [address] [place] [facility] [address] [facility] (ABNORMAL) Glucose, POCT (12/27/2021 7:46 AM CDT) [...] / Volume Laterality Blood 12/27/2021 7:46 AM 2 7:51 CDT AM CDT Unknown Provider LAB POCT ORDERABLES-MANUAL Performing Organization Address City/State/ZIP Code Phon e Number POC [facility] [address] [place] [address] [place] [address] [place] [facility] [address] (ABNORMAL) Glucose, POCT [...] Provider LAB POCT ORDERABLES-MANUAL Performing Organization Address City/[facility] Code Phon e Number POC [facility] [address] [place] [address] [place] [address] [place] [facility] [address] (ABNORMAL) Glucose, POCT [...] Provider LAB POCT ORDERABLES-MANUAL Performing Organization Address City/[facility]/ZIP Code Phon e Number POC [facility] [address] [place] [address] [place] [address] [place] [facility] [address] (ABNORMAL) Glucose, POCT (12/26/2021 5:12 PM CDT) [...] Provider LAB POCT ORDERABLES-MANUAL Performing Organization Address City/[facility] Phon e Number POC [facility] [address] [place] [address] [place] [id number] [place] [address] POC [address] [facility] (ABNORMAL) Glucose, POCT (12/26/2021 12:37 PM CDT) [...] Provider LAB POCT ORDERABLES-MANUAL Performing Organization Address [facility] Phon e Number POC [facility] [address] [place] [address] [place] [address] [place] [facility] [address] (ABNORMAL) Glucose, POCT [...] Address City/State/ZIP Code Phon e Number POC [facility] [address] [place] [address] [place] [address] [place] [facility] [address] (ABNORMAL) Glucose, POCT [...] Provider LAB POCT ORDERABLES-MANUAL Performing Organization Address City/[facility] Phon e Number POC [facility] [address] [place] [address] [place] [address] [place] [facility] [address] [facility] (ABNORMAL) Glucose, POCT (12/25/2021 9:21 PM [...] Provider LAB POCT ORDERABLES-MANUAL Performing Organization Address City/[facility]/ZIP [facility] Phon e Number POC [facility] [address] [place] [address] [place] [address] [place] [facility] [address] (ABNORMAL) Glucose, POCT (12/25/2021 4:17 PM CDT) Analysis Performed At Patho logist Time Signature Glucose, POCT, 238 (H) 70 - 140 12/25/2021 [facility] B mg/dL 4:21 PM CDT Site Capillary 12/25/2021 [facility] 4:21 PM CDT Specimen Anatomical Collection Method Collection Time Receive d Time (Source) Location / / Volume Laterality Blood 12/25/2021 4:17 PM 4:21 CDT PM CDT Unknown Provider LAB POCT ORDERABLES-MANUAL Performing Organization Address City/[facility]/ZIP Code Phon e Number POC [facility] [address] [place] [address] [place] [address] [place] [facility] [address] [facility] (ABNORMAL) Glucose, POCT (12/25/2021 11:45 AM [...] Provider LAB POCT ORDERABLES-MANUAL Performing Organization Address City/[facility] Phon e Number POC [facility] [address] [place] [address] [place] [address] [place] [facility] [address] [facility] (ABNORMAL) Glucose, POCT (12/25/2021 8:56 AM CDT) [...] Provider LAB POCT ORDERABLES-MANUAL Performing Organization Address City/[facility]/ZIP Code Phon e Number POC [facility] [address] [place] [address] [place] [address] [place] [facility] [address] (ABNORMAL) Glucose, POCT (12/25/2021 7:56 AM CDT) [...] Organization Address City/State/ZIP Code Phon e Number [facility] [address] [place] [address] [place] [address] [place] [facility] [address] [facility] Glucose, POCT (12/25/2021 6:53 AM CDT) [...] Provider LAB POCT ORDERABLES-MANUAL Performing Organization Address City/[facility]/ZIP Code Phon e Number [facility] [address] [place] [address] [place] [address] [place] [facility] [address] [facility] Glucose, POCT (12/25/2021 5:57 AM CDT) P athologist Signature Glucose, POCT, 110 70 - 140 12/25/2021 [facility] B mg/dL 6:01 AM CDT Specimen Anatomical Collection Method Collection Time Receive d Time (Source) Location / / Volume Laterality Blood 12/25/2021 5:57 AM 2 6:01 CDT AM CDT Unknown Provider LAB POCT ORDERABLES-MANUAL Performing Organization Address City/State/ZIP Code Phon e Number POC [facility] [address] [place] [address] [facility] [facility] [place] [address] [place] [facility] [address] DX Cervical Spine 2-3 Views (12/25/2021 5:39 [...] Address City/State/ZIP Code Phon e Number POC [facility] [address] [place] [address] [place] [address] [place] [facility] [address] (ABNORMAL) Glucose, POCT (12/25/2021 3:45 AM CDT) [...] LAB POCT ORDERABLES-MANUAL Performing Organization Address City/State/ZIP [facility] Phon e Number POC [facility] [address] [place] [address] [place] [id number] [place] [address] POC [address] (ABNORMAL) Glucose, POCT (12/25/2021 2:38 AM CDT) P athologist Signature Glucose, POCT, 255 (H) 70 - 140 12/25/2021 PCLX B mg/dL 2:41 AM CDT Specimen Anatomical Collection Method Collection Time Receive d Time (Source) Location / / Volume Laterality Blood 12/25/2021 2:38 AM 2 2:41 CDT AM CDT Unknown Provider LAB POCT ORDERABLES-MANUAL Performing Organization Address City/[facility] Phon e Number POC [facility] [address] [place] [address] [place] [address] [place] [facility] [address] (ABNORMAL) Glucose, POCT (12/25/2021 1:47 AM CDT) P athologist Signature Glucose, POCT, 282 (H) 70 - 140 12/25/2021 PCLX B mg/dL 1:49 AM CDT Specimen Anatomical Collection Method Collection Time Receive d Time (Source) Location / / Volume Laterality Blood 12/25/2021 1:47 AM 2 1:49 CDT AM CDT Unknown Provider LAB POCT ORDERABLES-MANUAL Performing Organization Address City/[facility] Phon e Number POC [facility] [address] [place] [address] [place] [address] [place] [facility] [address] (ABNORMAL) Glucose, POCT (12/25/2021 12:44 AM CDT) P athologist Signature Glucose, POCT, 283 (H) 70 - 140 12/25/2021 PCLX B mg/dL 1:49 AM CDT Specimen Anatomical Collection Method Collection Time Receive d Time (Source) Location / / Volume Laterality Blood 12/25/2021 12:44 12/25/2021 1:49 AM CDT AM CDT Unknown Provider LAB POCT ORDERABLES-MANUAL Performing Organization Address City/[facility]/ZIP [facility] Phon e Number POC [facility] [address] [place] [address] [place] [id number] [place] [address] POC [address] [facility] (ABNORMAL) Glucose, POCT (12/24/2021 11:45 PM CDT) P athologist Signature Glucose, POCT, 215 (H) 70 - 140 12/24/2021 PCLX B mg/dL 11:53 PM CDT Specimen Anatomical Collection Method Collection Time Receive d Time (Source) Location / / Volume Laterality Blood 12/24/2021 11:45 12/24/2021 PM CDT 11:53 PM CDT Unknown Provider LAB POCT ORDERABLES-MANUAL Performing Organization Address City/[facility] Phon e Number POC [facility] [address] [place] [address] [place] [address] [place] [facility] [address] (ABNORMAL) Glucose, POCT [...] Address City/State/ZIP Code Phon e Number POC [facility] [address] [place] [address] [place] [address] [place] [facility] [address] [facility] (ABNORMAL) Glucose, POCT (12/24/2021 9:42 PM CDT) P athologist Signature Glucose, POCT, 165 (H) 70 - 140 12/24/2021 PCL[facility] B mg/dL 9:49 PM CDT Specimen Anatomical Collection Method Collection Time Receive d Time (Source) Location / / Volume Laterality Blood 12/24/2021 9:42 PM 2 9:49 CDT PM CDT Unknown Provider LAB POCT ORDERABLES-MANUAL Performing Organization Address City/[facility]/ZIP Code Phon e Number POC [facility] [address] [place] [address] [place] [address] [place] [facility] [address] [facility] (ABNORMAL) Glucose, POCT (12/24/2021 8:41 PM [...] Address City/State/ZIP Code Phon e Number POC [facility] [address] [place] [address] [place] [address] [place] [facility] [address] [facility] (ABNORMAL) CBC without Differential (12/24/2021 8:41 [...] Address City/State/ZIP Code Phon e Number [facility] - [address] [place] [phone] [facility] [place] [address] Laboratories-[facility] 200 [facility] (ABNORMAL) Basic Metabolic Panel (12/24/2021 [...] LAB BLOOD ADD-ON Performing Organization Address City/[facility]/ZIP Code Phon e Number [facility] - [address] [place], [place] [address] [facility] [place] [address] Formerly [facility] [address] [facility] (ABNORMAL) Glucose, POCT (12/24/2021 7:46 PM CDT) athologist Signature Glucose, POCT, 148 (H) 70 - 140 12/24/2021 PCLX B mg/dL 7:50 PM CDT Specimen Anatomical Collection Method Collection Time Receive d Time (Source) Location / / Volume Laterality Blood 12/24/2021 7:46 PM 7:50 CDT PM CDT Unknown Provider LAB POCT ORDERABLES-MANUAL Performing Organization Address City/[facility]/ZIP [facility] Phon e Number POC [facility] [address] [place] [address] PCLX [facility] [place] [address] [place] [facility] [address] [facility] (ABNORMAL) Glucose, POCT (12/24/2021 6:41 PM CDT) P athologist Signature Glucose, POCT, 163 (H) 70 - 140 12/24/2021 PCL[facility] B mg/dL 7:30 PM CDT Specimen Anatomical Collection Method Collection Time Receive d Time (Source) Location / / Volume Laterality Blood 12/24/2021 6:41 PM 2 7:30 CDT PM CDT Unknown Provider LAB POCT ORDERABLES-MANUAL Performing Organization Address City/[facility]/ZIP Code Phon e Number POC [facility] 200 [place] [address] [place] [address] [place] [facility] 200 [facility] (ABNORMAL) Glucose, POCT (12/24/2021 5:35 PM CDT) [...] Address City/State/ZIP Code Phon e Number POC [facility] 200 [place] [address] [place] [address] [place] [facility] 200 [facility] (ABNORMAL) Glucose, POCT (12/24/2021 4:33 PM CDT) [...] City/State/ZIP Code Phon e Number POC [facility] 200 [place], [place] [address] [place] [address] [place] [facility] [address] [place] [address] [place] Fluoro Less Than 1 Hour (12/24/2021 [...] M.D. IMG FLUOROSCOPY PROCEDURES Performing Organization Address City/State/ZIP Code [...] LAB BLOOD NON ADD-ON Performing Organization Address City/[facility]/ZIP Code Phon e Number [facility] - [address] (ABNORMAL) Glucose, Whole Blood (12/24/2021 2:57 PM CDT) athologist Signature Glucose 231 (H) 70 - 140 12/24/2021 [facility] mg/dL 2:58 PM CDT Specimen Anatomical Collection Method Collection Time Receive d Time (Source) Location / / Volume Laterality Blood (Blood, 12/24/2021 2:57 PM 12/25/19 2:57 Arterial Line) CDT PM CDT Milton Davis M.D. LAB BLOOD TROPONIN Performing Organization Address City/[facility]/ZIP Code Phon e Number [facility] - [address] Potassium, Blood (12/24/2021 2:57 PM CDT) athologist Signature Potassium, B 3.7 3.6 - 5.2 12/24/2021 [facility] mmol/L 2:58 PM CDT Specimen Anatomical Collection Method Collection Time Receive d Time (Source) Location / / Volume Laterality Blood (Blood, 12/24/2021 2:57 PM 12/25/19 22 2:57 Arterial Line) CDT PM CDT Milton Davis M.D. LAB BLOOD NON ADD-ON Performing Organization Address City/[facility] Phon e Number [facility] - [address] [place], [place] [address] [place] [address] Sodium, B (12/24/2021 2:57 PM CDT) athologist Signature Sodium, B 135 135 - 145 12/24/2021 2:58 ST[facility] mmol/L PM CDT Specimen Anatomical Collection Method Collection Time Receive d Time (Source) Location / / Volume Laterality Blood (Blood, 12/24/2021 2:57 PM 12/25/19 2:57 Arterial Line) CDT PM CDT Milton Davis M.D. LAB BLOOD NON ADD-ON Performing Organization Address City/[facility]/ZIP Code Phon e Number [facility] - [address] [place] [address] 05 [place] [address] Calcium, Ionized (12/24/2021 2:57 PM CDT) athologist Signature Calcium, 4.85 4.65 - 5.30 12/24/2021 [facility] Ionized, B mg/dL 2:58 PM CDT Specimen Anatomical Collection Method Collection Time Receive d Time (Source) Location / / Volume Laterality Blood (Blood, 12/24/2021 2:57 PM 12/25/19 2:57 Arterial Line) CDT PM CDT Milton Davis M.D. LAB BLOOD NON ADD-ON Performing Organization Address City/[facility]/ZIP Code Phon e Number [facility] - [address] [place], [place] [address] [place] [address] (ABNORMAL) Blood Gas with Coox, Arterial [...] LAB BLOOD NON ADD-ON Performing Organization Address City/[facility]/ZIP Code Phon e Number [facility] - [address] [place] [address] [address] [place] [address] Laboratories-[facility] 200 [facility] (ABNORMAL) Glucose, POCT (12/24/2021 2:16 PM CDT) [...] Code Phon e Number POC [facility]ST [facility] [address] [place], [place] [address] [place] [address] [place] [facility] [address] (ABNORMAL) Glucose, POCT [...] Address City/State/ZIP Code Phon e Number POC [facility] [address] [place] [address] [place] [address] [place] [facility] [address] IONM - [facility] (12/24/2021 9:59 AM CDT) Specimen (Source) Anatomical Collection Method Collection Time Re ceived Time Location / / Volume Laterality 12/24/2021 10:00 AM CDT Narrative [facility] - 12/24/2021 3:40 PM CDT Table formatting from the original result was not included. 24-Dec-2021 ? Intraopera tive Monitoring ? Final Report Study Number: 2 EMG Fleet Administrator: Indra Mallory . [phone] or [phone] Referred by: WILMER KEARNS (127 or [phone]) Referred for: Referral Code: ?1957 RX: 195 SUMMARY: Somatosensory evoked potentials (SEPs), transcranial electric [...] surg ical suite. Geri Mallory (127 or [phone])/[facility] Surgery ? Staff Minutes Start-DateTime End-DateTim e Remote Simultaneous Supervision 131 10 13:02 PM RESIN REMOVER 12/24/2021 15:13 PM RESIN REMOVER Remote Exclusive (1:1) Supervision 0 12/2021 00:00 AM RESIN REMOVER 12/24/2021 00:00 AM RESIN REMOVER In-Room Exclusive (1:1) Supervision 0 00:00 AM RESIN REMOVER 12/24/2021 00:00 AM RESIN REMOVER Total Monitoring Time: 131 ?? This interpretation has been electron ically signed: Indra Mallory MD at 12/24/2021 3:16:44 PM CDT Procedure Note Indra Mallory M.D. - 12/24/2021Formatt ing of this note is different from the original. 24-Dec-2021 Intraoperative Monitoring Fi nal Report Study Number: 2 EMG Fleet Administrator: Indra Mallory . 127 or [phone] Referred by: WILMER KEARNS (127 or [phone]) Referred for: Referral Code: 1958 RX: 1957 [...] surg ical suite. Geri Mallory (127 or [phone])/[facility] Surgery Staff Minutes Start-DateTime End-DateTim e Remote Simultaneous Supervision 131 12/15 13:02 PM RESIN REMOVER 12/24/2021 15:13 PM RESIN REMOVER Remote Exclusive (1:1) Supervision 0 12/2021 00:00 AM RESIN REMOVER 12/24/2021 00:00 AM RESIN REMOVER In-Room Exclusive (1:1) Supervision 0 00:00 AM RESIN REMOVER 12/24/2021 00:00 AM RESIN REMOVER Total Monitoring Time: 131 This interpretation has [...] Lower Abdomen magnesium hydroxide suspension 30 mL (SC LK OF MAGNESIA) 30 mL, oral, Daily [...] (CANCELED) 0810 (Given - Provider: Ketan Alfaro RJose Cruz .)1242 (Given - Provider: Ketan Alfaro R.N.) 0-20 Units, subcutaneous, 3 times daily with meals, First dose on Fri12/25/21 at 0845, Simple or Complex Ratio: Simple, Carb Ratio - Simple (1 unit per __ grams of carbohydrates): 10 insulin aspart U-100 (Carbohydrate Count ) injection 0-20 Units (NovoLOG FlexPen) 1742 (Given - Provider: Ranjana Roman R.N.) 0917 (G iven - Provider: Ang Lopez RCandyN.)1341 (Given - Provider: Yesenia Hawk RCandyN.)1802 (Given - Provider: Toyin Wagner R.N.) 0837 (Given - Provider: Lala Rivers RLiss)1330 [...] xPen) 0808 (Given - Provider: Ketan Alfaro RCandyNCandy - Comment: bg 245)1238 (Given - Provider: Burton YanceyNCandy - Comment: bg 287)1743 (Given - Provider: Ranjana Roman RCandyNCandy) 0758 (Given - Provider: Jenni Bettencourt RCandyNCandy - Comment: RMG 210)1342 (Given - Provider: Yesenia Hawk RCandyNCandy)1800 (Given - Provider: Toyin Wagner RCandyNCandy) 0836 (Given - Provider: Lala Rivers RLiss)1328 (Given - Provider: Llaa Rivers R.N. - Comment: just finished lunch) [...] 2120 (Not Given - Provider: Francie Pritchett R.N. - Reason: Order parameters not met) 2101 (Not Given - Provider: Toyin Wagner RLiss - Reason: Order parameters not met - [...] FlexPen) 0235 (Given - Provider: Francie Pritchett RLiss) 0320 (Not Given - Provider: Mitzy chu, R.NCandy - Reason: Patient/family refused) 0-7 Units, subcutaneous, [...] glargine injection 20 Units (CANCELED) 0835 (Domingo iven - Provider: Ketan Alfaro R.N.) 20 [...] Patient/family refused)1137 (Given - Provider: Yesenia Hawk RLiss) 0842 (Given - Provider: Lala Rivers R.N.) 17 g, oral, Daily, First dose on 02/05 at 0900, Constipation, hold for loose stools Avoid mixing with starch-based thickened liquids., Indications: constipation pramipexole tablet 0.25 mg (MIRAPEX) 2121 (Given - Pro vider: Francie Pritchett R.NCandy) 6 (Given - Provider: Toyin Wagner RCandyNCandy) 0.25 [...] Francie Pritchett R.N.) 0809 (Given - Provider: Burton GoldenNCandy)2055 (Given - Provider: Toyin Wagner R.N.) 0842 (Given - Provider: Lala Rivers R.N.) 150 mg, oral, 2 times daily, First dose on Fri12/25/21 at 0900 sennosides-docusate sodium 8.6-50 mg per tablet 1 tabl et (SENOKOT-S) 0803 (Given - Provider: Ketan Alfaro R.N.)2121 (Given - Provider: Francie Pritchett R.N.) 08 (Given - Provider: Burton GoldenNCandy)2056 (Given - Provider: Toyin Wagner RCandyNCandy) 0843 (Given - Provider: Lala Rivers RLiss) 1 tablet, oral, 2 times daily, First dos e on Fri12/24/21 at 2100, For constipation. Hold for diarrhea. venlafaxine XR 24 hr capsule 225 mg (EFFEXOR-XR) 0803 (Given - Provider: Ketan Alfaor R.N.) 0809 (Given - Provider: Jenni Bettencourt R.N.) 0842 (Given - Provider: Lala Rivers R.N.) 225 mg, oral, Daily, First dose on Tu at 0900, Swallow whole. Do NOT crush, [...] 0536 (Given - Prov ider: Francie Pritchett RLiss) 5 mg, oral, 3 times daily PRN, [...] Bettencourt R.N.) 0048 (Given - Provider: Mitzy Almaguer R.N.)0609 [...] Group 1) 0312 (See Alternative - Provider: Burton VelazquezNCandy)0800 (See Alternative - Provider: Ketan Alfaro R.N.)1247 [...] 1852 (See Alternative - Provider: Ranjana Roman R.N.) [...]
--- OUTSIDE RECORDS SUMMARY | 2022-01-21 08:50 | XMS_ITS | Encounter Summary ---
:1955 Author Organization [facility] Address [address] [place] [address] Care Team Providers Name Role Phone Unavailable Primary Care Provider Unavailable Reason for Referral Outpatient (Routine) - Authorized Specialty Diagnoses / Procedures Referred By Contact Refer red To Contact Diagnoses Pain Low Back Unspecified Diabetes Mellitus Type 2 With Diabetic Neuropathy (HCC) Myelopathy Cervical (HCC) Pain Neuropathic Hypertension Essential Primary Constipation Spondylosis Lumbar Without Myelopathy Tendonitis Achilles Right Ernesto Hart M.D. 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 [facility] [address] [place] [address] Referral ID Status Reason Start Date Expiration Date Visits Requ ested Visits Authorized [id number] Closed 11/14/2021 11/14/2022 1 1 Encounter Details Date Type Department Care Team Description 12/21/2021 Comprehensive Visit Preoperative Dago Herrera M.D. [address] [place] [phone] Preoperative Exam (Primary Dx); Evaluation Center in Ernesto Hart M.D. [address] [place] [phone] Pain Low Back Unspecified; [place], [place] Diabetes Mellitus Type 2 Wit h Diabetic Neuropathy (HCC); [address] [facility] Myelopathy Cervical (HCC); [place], [place]uropath ic; [phone] Hypertension Essential Prima ry; [phone] Constipation; Spondylosis Lum bar Without Myelopathy; Tendonitis [...] you attend jehovah's witness or Never 2021 pentecostalism services? Do you [...] have completed or the highest Tiara, MEd, PROCUREMENT MANAGER, ODILIA) degree you have received? Sex Assigned [...] y.o. Date of : 1955 Patient Address: [address] [place] [phone] Primary Care Provider: No primary care provider [...] Body Mass Index 40.0 To 44.9 Adult ([facility]) # Hypertension Essential Primary # Diabetes Mellitus Type 2 ([facility]) # Diabetes Mellitus Type 2 With Diabetic Neuropathy ([facility]) # Depression Major Recurrent Partial Remission ([facility]) # Constipation # Spondylosis Lumbar Without Myelopathy # Tendonitis Achilles Right # Pain Low Back Unspecified # Myelopathy Cervical ([facility]) # Pain Neuropathic # Central Sensitization Sydrome [...] pain. 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 [...] Recommendations: None Ernesto Hart MD PGY4, Pager #[phone] documented in this encounter Plan of Treatment Upcoming Encounters Date Type Specialty Care Team Description 02/04/2022 Office Visit Orthopedic Surgery Deon Herrera M.D. [address] [place] [phone] (Wo rk) documented as of this [...] Signature Ventricular Rate 72 BPM MUSE ECG/Min [place] Interval 180 ms MUSE QRSD Interval 100 ms MUSE QT Interval 382 ms MUSE QTC Interval 418 ms MUSE P [place] 1 degrees MUSE R [place] -16 degrees MUSE T Wave [place] 26 degrees MUSE Specimen Anatomical Collection Method [...]
--- OUTSIDE RECORDS SUMMARY | 2022-01-21 08:50 | XMS_ITS | Encounter Summary ---
:1955 Author Organization [facility] Address [address] [place] [address] Care Team Providers Name Role Phone Unavailable Primary Care Provider Unavailable Reason for Referral Outpatient (Routine) - Closed Specialty Diagnoses / Procedures Referred By Contact Refer red To Contact Diagnoses Preoperative Exam Buster Herrera M.D. [facility] Procedures BMD Bone Density Spine Hips [address] [place] [phone] Referral ID Status Reason Start Date Expiration Date Visits Requ ested Visits Authorized [id number] Closed 11/14/2021 11/14/2022 1 1 Reason for Visit Outpatient (Routine) - Closed Specialty Diagnoses / Procedures Referred By Contact Refer red To Contact Diagnoses Preoperative Exam Buster Herrera M.D. [facility] Procedures BMD Bone Density Spine Hips [address] [place] [phone] Referral ID Status Reason Start Date Expiration Date Visits Requ ested Visits Authorized [id number] Closed 11/14/2021 11/14/2022 1 1 Encounter Details Date Type Department Care Team Description 12/18/2021 Hospital Encounter Department of Buster Herrera perative Exam Radiology, Manasa Lang M.D. [facility], in [address] [place], [place] [address] [facility] [address] [place], [place] [phone] (Work) [phone] Social History Tobacco Use Types Packs/Day Years [...] do you attend anglican or Never 2021 scientology services? Do you [...] have completed or the highest Tiara, MEd, ACADEMIC COMPUTING DIRECTOR, ODILIA) degree you have received? Sex [...] 365 test 0 12/28/2021 strips blood-glucose meter [facility] Test as directed 1 each 0 12/28 [...] Orthopedic Surgery Deon Herrera M.D. [address] [place], [place] [phone] (Wo rk) documented as [...] Mineral Density (BMD) analysis perf ormed on [employer] with serial number [id number]. ? FINDINGS: Left Hip: Femur Neck: BMD [...] image stored in the BMD study in [employer]), the calculated ten year probability of f racture is: FRAX Risk Factors: None FRAX (10 yr probability) Major Osteoporotic Fracture: ??8.1 % Hip Fracture: ?0.9 % ? Today's spine scan is considered non-heide gnostic according to ISCD Guidelines. Procedure Note Jai Villagran M.B., B.Ch., B.A.O. - 12/18/2021 EXAM: BMD BONE DENSITY SPINE HIPS Bone Mineral Density (BMD) analysis perf ormed on [employer] with serial number [id number]. FINDINGS: Left Hip: Femur Neck: BMD = [...] including images and graphs, is available in [employer]. In the absence of other causes of [...] image stored in the BMD study in [employer]), the calculated ten year probability of f [...]
--- OUTSIDE RECORDS SUMMARY | 2022-01-21 08:51 | XMS_ITS | Encounter Summary ---
:1955 Author Organization [facility] Address [address] [place] [address] Care Team Providers Name Role Phone Unavailable Primary Care Provider Unavailable Reason for Referral MRI/CAT/PET Scan (Routine) - Closed Specialty Diagnoses / Procedures Referred By Contact Refer red To Contact Radiology Diagnoses Stenosis Spinal Cervical Buster Herrera M.D. [facility] Procedures CT Cervical Spine without IV Contrast [address] [place] [phone] Referral ID Status Reason Start Date Expiration Date Visits Requ ested Visits Authorized [id number] Closed 11/14/2021 11/14/2022 1 1 Reason for Visit MRI/CAT/PET Scan (Routine) - Closed Specialty Diagnoses / Procedures Referred By Contact Refer red To Contact Radiology Diagnoses Stenosis Spinal Cervical Buster Herrera M.D. [facility] Procedures CT Cervical Spine without IV Contrast [address] [place], [place] [phone] Referral ID Status Reason Start Date Expiration Date Visits Requ ested Visits Authorized [id number] Closed 11/14/2021 11/14/2022 1 1 Encounter Details Date Type Department Care Team Description 12/18/2021 Hospital Encounter Department of Jesús Herrera Spinal Radiology, [facility], in [address] [place], [place] 200 [facility] [address] [place], [place] [phone] (Work) [phone] Social History Tobacco Use Types Packs/Day Years [...] do you attend anabaptism or Never 2021 sabianism services? Do you [...] have completed or the highest Tiara, MEd, FINISHING SUPERVISOR PLASTIC SHEETS, ODILIA) degree you have received? Sex Assigned [...] 365 test 0 12/28/2021 strips blood-glucose meter [facility] Test as directed 1 each 0 12/28 [...] Surgery Deon Herrera M.D. [address] [place], [place] [phone] (Wo rk) documented as [...]
--- OUTSIDE RECORDS SUMMARY | 2022-01-21 08:51 | XMS_ITS | Encounter Summary ---
:1955 Author Organization [facility] Address [address] [place] [address] Care Team Providers Name Role Phone Unavailable [...] do you attend orthodoxy or Never 2021 yarsani services? Do you [...] have completed or the highest Tiara, MEd, LANDFILL GRADER, ODILIA) degree you have received? Sex Assigned [...] Ihsan and has two brothers in the [place]. Early growth and development: The patient met social and developmental milestones as expected. Patient has no biological children but has an adult foster daughter named Lia Moscoso. Spirituality / Taoist / Culture: Church History: None Employment: Retired Psychosocial Risk Factors [...] handrails for stairs, hospital bed, oxygen, ramp, 7th grade social studies teacher, toilet riser, tub/shower chair/bench, walker - four wheeled, and wheelchair - manual Patient anticipates potentially needing the following additional equipment: none Transportation needs: support from family/friends FORMAL AND INFORMAL RESOURCES Patient has a personalized living manager nurse visit to help with ADL's/IADL's twice per [...] know more about skilled facilities in the [place], [place] area. appliance worker provided instructions onhow to search Medicare.gov website for a list of fdc facilities. Social work discussed the role of care management in discharge planning and the purpose of the assessment today. Patient is scheduled for LAMINOPLASTY POSTERIOR CERVICAL C3-7 [0213] surgery with Haroon Smith on 12/24/2021. Patient anticipates being inpatient for at least three consecutive nights. Patient states that she anticipates being discharged to a fdc facility. appliance worker provided education to patient with regard to Medicare eligibility criteria that, three midnight stay together with need for skilled care of some kind, for example, physical therapy, occupational therapy, or fdc. Patient vernally demonstrates understanding. Patient requests to [place] [facility] [place] [place], [place] ([phone]) as her first choice. Patient also identifies [facility] ([phone]) or [facility] ([phone]) as alternative options for SNF admission. This 7th grade social studies teacher explained that after surgery, the inpatient team in [place] will be able to assist with determining discharge needs and will assist in the referral process. This 7th grade social studies teacher advised that selecting a fdc facility cannot be set up prior to surgery. IMPRESSION Ms. Yaz Adames is a 66-year-old female. This consultation was completed telephonically. appliance worker is unable to visually assess patient's [...] stay. Patient anticipates being discharged to a fdc facility, with a first preference [place] [facility] [place] [place] ([phone]). Patient's daughter Lia Moscoso ([phone]) will provide patient with transportation via car ride home if deemed safe and appropriate for the patient. Inpatient 7th grade social studies teacher will need to assess the needs of the patient/family and provide appropriate resources. The outpatient 7th grade social studies teacher will provide collaboration with the treatment team as needed. This 7th grade social studies teacher provided patient with direct contact information, should questions arise. Patient is comfortable with this plan and indicated that there are no further questions at this time. Anticipated barriers to the transition of care/plan: None Robert Blount.Saran., M.S.W. 12/04/2021 documented in this encounter Plan of Treatment Upcoming Encounters Date Type Specialty Care Team Description 02/04/2022 Office Visit Orthopedic Surgery Deon Herrera M.D. [address] [place] [address] [phone] (Wo rk) documented as of this encounter Visit Diagnoses Not on filedocumented in this encounter Additional Health Concerns Assessment Noted Time PHQ-9 Depression Total Score: 5 04/29/2016 10:10 AM ANATOLIY T documented as of this encounter
--- OUTSIDE RECORDS SUMMARY | 2022-01-21 08:51 | XMS_ITS | Encounter Summary ---
:1955 Author Organization [facility] Address [address] [place] [address] Care Team Providers Name Role Phone Unavailable Primary Care Provider Unavailable Encounter Details Date Type Department Care Team Description 07/20/2020 Orders Only Division of Pain Mychal Garcia, Pain Neuropathic Medicine in P.A.-C., M.S. (Primary Dx) [place], [place] [address] [place] [address] [address] [place] [address] [phone] Social History Tobacco Use Types Packs/Day Years [...] you attend jehovah's witness or Never 2021 cheondoism services? Do you [...] have completed or the highest Tiara, MEd, S IRON WORKER, ODILIA) degree you have received? Sex Assigned at Date Recorded Female 07/21/2017 2:58 PM CDT documented as of this encounter Plan of Treatment Upcoming Encounters Date Type Specialty Care Team Description 02/04/2022 Office Visit Orthopedic Surgery Deon Herrera M.D. [address] [place] [address] [phone] (Wo ligia) documented as of this encounter Visit Diagnoses Diagnosis Pain Neuropathic - Primary documented in this encounter Additional Health Concerns Assessment Noted Time PHQ-9 Depression Total Score: 5 04/29/2016 10:10 AM ANATOLIY T documented as of this encounter
--- OUTSIDE RECORDS SUMMARY | 2022-01-21 08:51 | XMS_ITS | Encounter Summary ---
:1955 Author Organization [facility] Address [address] [place] [address] Care Team Providers Name Role Phone Unavailable Primary Care Provider Unavailable Reason for Referral Outpatient (Routine) - Closed Specialty Diagnoses / Procedures Referred By Contact Refer red To Contact Spine Diagnoses Radiculopathy Lumbar Radiculopathy Cervical Anoop Emery M.D. [address] [address] Referral ID Status Reason Start Date Expiration Date Visits Requ ested Visits Authorized [id number] Closed 05/22/2021 05/22/2022 1 1 STER IN CHANCERY Encounter Details Date Type Department Care Team Description 05/22/2021 [facility] Yuly, Radi culopathy Lumbar (Primary Dx); AND CLINICS Anoop Ruiz M.D. Radiculopathy Cervical [address] [place] [address] [address] [place] [address] Social History Tobacco Use Types Packs/Day Years [...] do you attend scientologist or Never 2021 orthodoxy services? Do you belong to any clubs or Yes 12/12/2021 organizations such as scientologist groups, unions, fraBuyerCurious or athletic groups, or school groups? How [...] have completed or the highest Tiara, MEd, PROGRAM ADMIN, ODILIA) degree you have received? Sex Assigned at Date Recorded Female 07/21/2017 2:58 PM CDT documented as of this encounter Plan of Treatment Upcoming Encounters Date Type Specialty Care Team Description 02/04/2022 Office Visit Orthopedic Surgery Deon Herrera M.D. [address] [place] [address] [phone] (Wo rk) Scheduled Referrals Name Type Priority Associated Diagnoses Order S [facility] Spine Center Outpatient Referral Routine Radiculopath y Lumbar Expected: Referral Radiculopathy Cervical 05/22 (Approximate), Expires: 08/22/2022 documented as of this encounter Visit Diagnoses Diagnosis Radiculopathy Lumbar - Primary Radiculopathy Cervical documented in this encounter Additional Health Concerns Assessment Noted Time PHQ-9 Depression Total Score: 5 04/29/2016 10:10 AM CS T documented as of this encounter
--- OUTSIDE RECORDS SUMMARY | 2022-01-21 08:51 | XMS_ITS | Encounter Summary ---
:1955 Author Organization [facility] Address [address] [place] [address] Care Team Providers Name Role Phone Unavailable Primary Care Provider Unavailable Reason for Referral MRI/CAT/PET Scan (Routine) - Closed Specialty Diagnoses / Procedures Referred By Contact Refer red To Contact Radiology Diagnoses Stenosis Spinal Cervical [facility] Procedures MR Cervical Spine without IV Contrast C.N.P., M.S.N. [address] [place] [phone] Referral ID Status Reason Start Date Expiration Date Visits Requ ested Visits Authorized [id number] Closed 11/12/2021 11/12/2022 1 1 Reason for Visit MRI/CAT/PET Scan (Routine) - Closed Specialty Diagnoses / Procedures Referred By Contact Refer red To Contact Radiology Diagnoses Stenosis Spinal Cervical Lia Junior APRN, [facility] Procedures MR Cervical Spine without IV Contrast C.N.P., M.S.N. [address] [place] [phone] Referral ID Status Reason Start Date Expiration Date Visits Requ ested Visits Authorized [id number] Closed 11/12/2021 11/12/2022 1 1 Encounter Details Date Type Department Care Team Description 11/14/2021 Hospital Encounter Department of [place], Lia Stenos is Spinal Radiology, Jay [place] APRN, C.N.P., Melida armstrong Arun, in M.S.N. Oscar, [address] [place], [place] [address] [facility] [address] [place], [place] [phone] (Work) [phone] Social History Tobacco Use Types Packs/Day Years [...] do you attend pentecostalism or Never 2021 latter day services? Do [...] slept in a care home (including now)? Education Answer Date Recorded What is the highest level of school Master's degree (e.g., M Dago, MS, 07/15/2020 you have completed or the highest Tiara, MEd, METALIZING MACHINE OPERATOR, ODILIA) degree you have received? [...] Orthopedic Surgery Deon Herrera M.D. [address] [place], [place] [phone] (Wo rk) documented as [...] in further evaluation, as indicated. Lia Junior APRN C.N.P., M.S.N. IMG MRI PROCEDURE S documented in this encounter Visit Diagnoses Diagnosis Stenosis Spinal Cervical documented in this encounter Additional Health Concerns Assessment Noted Time PHQ-9 Depression Total Score: 5 04/29/2016 10:10 AM CS T documented as of this encounter
--- OUTSIDE RECORDS SUMMARY | 2022-01-21 08:51 | XMS_ITS | Encounter Summary ---
:1955 Author Organization [facility] Address [address] [place] [address] Care Team Providers Name Role Phone Unavailable Primary Care Provider Unavailable Reason for Visit Outpatient (Routine) - Closed Specialty Diagnoses / Procedures Referred By Contact Refer red To Contact Spine Lia Junior, ALESIA CCandyN.P., [facility] M.S.N. [address] [place], [place] [phone] Referral ID Status Reason Start Date Expiration Date Visits Requ ested Visits Authorized [id number] Closed 11/12/2021 11/11/2024 1 1 Encounter Details Date Type Department Care Team Description 11/26/2021 Telemedicine Department of Spine in [facility] Myelo jak Cervical ([facility]) (Primary Dx); [place], [place] Flynn Chinchilla Stenosis Spinal Cervical; [address] [facility] [address] [facility] Stenosis Spinal Lumbar With Neuro[place] [phone] Social History Tobacco Use Types Packs/Day Years [...] do you attend nondenominational or Never 2021 methodist services? Do you belong to any clubs or Yes 12/12/2021 organizations such as nondenominational groups, unions, fraStrobe or athletic groups, or school groups? How [...] have completed or the highest Tiara, MEd, FOOD EDITOR, ODILIA) degree you have received? Sex Assigned at Date Recorded Female 07/21/2017 2:58 PM CDT documented as of this encounter Progress Notes Amor Garrett M.D. - 11/26/2021 8:30 AM CDT SUBJECTIVE CHIEF COMPLAINT: Cervical and lumbar stenosis. Consult conducted via real-time audio/video technology by Amor Garrett M.D. in [facility] to the patient in Patient's Home. HISTORY [...] Orthopedic Surgery Deon Herrera M.D. 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
--- OUTSIDE RECORDS SUMMARY | 2022-01-21 08:51 | XMS_ITS | Encounter Summary ---
:1955 Author Organization [facility] Address [address] [place] [address] Care Team Providers Name Role Phone Unavailable Primary Care Provider Unavailable Encounter Details Date Type Department Care Team Description 05/15/2021 [facility] Ailabouni, Radi culopathy Lumbar (Primary Dx); AND CLINICS Anoop Ruiz M.D. Radiculopathy Cervical [address] [facility] [address] [place] [address] W [phone] [place] [address] Social History Tobacco Use Types Packs/Day Years [...] do you attend christianity or Never 2021 faith services? Do you [...] have completed or the highest Tiara, MEd, NEON TUBE BENDER, ODILIA) degree you have received? Sex Assigned at Date Recorded Female 07/21/2017 2:58 PM CDT documented as of this encounter Plan of Treatment Upcoming Encounters Date Type Specialty Care Team Description 02/04/2022 Office Visit Orthopedic Surgery Deon Herrera M.D. [address] [place] [address] [phone] (Wo rk) documented as of this encounter Visit Diagnoses Diagnosis Radiculopathy Lumbar - Primary Radiculopathy Cervical documented in this encounter Additional Health Concerns Assessment Noted Time PHQ-9 Depression Total Score: 5 04/29/2016 10:10 AM CS T documented as of this encounter
--- OUTSIDE RECORDS SUMMARY | 2022-01-21 08:51 | XMS_ITS | Encounter Summary ---
:1955 Author Organization [facility] Address [address] [place] [address] Care Team Providers Name Role Phone Unavailable Primary Care Provider Unavailable Reason for Referral MRI/CAT/PET Scan (Routine) - Closed Specialty Diagnoses / Procedures Referred By Contact Refer red To Contact Radiology Diagnoses Neuralgia Trigeminal Meghna Valdez M.D., [facility] [place] [facility] Procedures MR Face without and with IV Contrast MR Brain without IV Contrast MT MRI BRAIN WO CNTRST HC MRI BRAIN WO CNTRST [facility] [address] [place] [phone] Referral ID Status Reason Start Date Expiration Date Visits Requ ested Visits Authorized [id number] Closed 06/13/2020 06/13/2021 1 1 Reason for Visit MRI/CAT/PET Scan (Routine) - Closed Specialty Diagnoses / Procedures Referred By Contact Refer red To Contact Radiology Diagnoses Neuralgia Trigeminal Meghna Valdez M.D., [facility] [place] [facility] Procedures MR Face without and with IV Contrast MR Brain without IV Contrast MT MRI BRAIN WO CNTRST HC MRI BRAIN WO CNTRST [facility] [address] [place] [phone] Referral ID Status Reason Start Date Expiration Date Visits Requ ested Visits Authorized [id number] Closed 06/13/2020 06/13/2021 1 1 Encounter Details Date Type Department Care Team Description 06/21/2020 Hospital Encounter Department of Meghna Valdez Radiology in [place] Wright, [place], [place] M.P.H. [address] [facility] [address] [phone] Social History Tobacco Use Types Packs/Day [...] or relatives? How often do you attend advent or Never 2021 confucianism services? Do you belong to any clubs or Yes 12/12/2021 organizations such as advent groups, unions, fraternal or athletic groups, or [...] Orthopedic Surgery Deon Herrera M.D. [address] [place], [place] [phone] (Wo rk) documented as [...] from chronic microangiopathy, though can be from educational institution president amie central pontine myelolysis. Moderate chronic microangiopathy [...] from chronic microangiopathy, though can be from educational institution president amie central pontine myelolysis. Moderate chronic microangiopathy [...]
--- OUTSIDE RECORDS SUMMARY | 2022-01-21 08:51 | XMS_ITS | Encounter Summary ---
:1955 Author Organization [facility] Address [address] [place] [address] Care Team Providers Name Role Phone Unavailable Primary Care Provider Unavailable Reason for Visit Reason Comments COVID Inquiry Encounter Details Date Type Department Care Team Description 06/19/2020 Clinical Communication Division of Pain Lacey Garcia in COVID Inquiry Medicine in David Goodman, M.S. [address] [place] [phone] Social History Tobacco Use Types Packs/Day Years [...] do you attend mosque or Never 2021 confucianism services? Do you [...] sending patient for testing in [facility] or [facility], route encounter to the correct testing pool. documented in this encounter Plan of Treatment Upcoming Encounters Date Type Specialty Care Team Description 02/04/2022 Office Visit Orthopedic Surgery Deon Herrera M.D. [address] [place] [address] [phone] (Wo rk) documented as of this encounter Visit Diagnoses Not on filedocumented in this encounter Additional Health Concerns Assessment Noted Time PHQ-9 Depression Total Score: 5 04/29/2016 10:10 AM CS T documented as of this encounter
--- OUTSIDE RECORDS SUMMARY | 2022-01-21 08:51 | XMS_ITS | Encounter Summary ---
:1955 Author Organization [facility] Address [address] [place] [address] Care Team Providers Name Role Phone Unavailable Primary Care Provider Unavailable Encounter Details Date Type Department Care Team Description 11/09/2021 Clinical Communication Visit Review in [place], [place] 200 [place] [address] Social History Tobacco Use Types [...] do you attend druze or Never 2021 confucianist services? Do you [...] or slept in a longterm (including now)? Education Answer Date Recorded What is the highest level of school Master's degree (e.g., Jose Roberto Loza, , 07/15/2020 you have completed or the highest Tiara, MEd, TIMEKEEPING SUPERVISOR, ODILIA) degree you have received? Sex Assigned at Date Recorded Female 07/21/2017 2:58 PM CDT documented as of this encounter Plan of Treatment Upcoming Encounters Date Type Specialty Care Team Description 02/04/2022 Office Visit Orthopedic Surgery Deon Herrera M.D. [address] [place] [address] [phone] (Wo rk) documented as of this encounter Visit Diagnoses Not on filedocumented in this encounter Additional Health Concerns Assessment Noted Time PHQ-9 Depression Total Score: 5 04/29/2016 10:10 AM CS T documented as of this encounter
--- OUTSIDE RECORDS SUMMARY | 2022-01-21 08:51 | XMS_ITS | Encounter Summary ---
:1955 Author Organization [facility] Address [address] [place] [address] Care Team Providers Name Role Phone Unavailable Primary Care Provider Unavailable Reason for Visit Outpatient (Routine) - Closed Specialty Diagnoses / Procedures Referred By Contact Refer red To Contact Diagnoses Pain Eye Left Mychal Garcia, [facility] Procedures PM Nerve Block injection Other; left infraorbital nerve; US-Guided; Left PLorena San, M.SCandy [address] [place] [phone] Referral ID Status Reason Start Date Expiration Date Visits Requ ested Visits Authorized [id number] Closed 06/23/2020 06/23/2021 1 1 Encounter Details Date Type Department Care Team Description 07/05/2020 Procedure visit Division of Pain Medicine Isacc Knight, Pain Eye Left in [facility] karthik Pruett 200 [facility] 200 [place] [address] [place], [place] [phone] (Wo rk) Social History Tobacco Use Types [...] do you attend catholic or Never 2021 latter day services? Do [...] Tho Knight M.D. Authorized by: Mychal Garcia P.A.-Jaswnider, M.S. Care team members present 1. Alon [...] surrounding structures. Images have been archived in [place]: click the 'Dept Filter' button in [place], then the 'Clear (Show All)' button, then [...] fellow participated in the procedure, and the furniture rental consultant was present for the entire procedure. OPERATIVE NOTE INFORMATION Specimens: 0 Drains: 0 Estimated blood loss: 0 Implants: 0 documented in this encounter Plan of Treatment Upcoming Encounters Date Type Specialty Care Team Description 02/04/2022 Office Visit Orthopedic Surgery Deon Herrera M.D. [address] [place], [place] [phone] (Wo rk) documented as [...] Tho Knight M.D. Authorized by: Mychal Garcia PCandyABravo San, M.S. Care team members present 1. Alon Lemon M.D. 2. Katia Zaldivar, L.PCandyNCandy PROCEDURE SUMMARY Indications: Pain Pre procedure pain [...] structures. ?? Images have been archived in [place]: click the 'Dept Filter' button in [place], then the 'Clear (Show All)' button, then [...] an appropriate amount of observation, the p atblanca was dismissed from the clinic in good [...] fellow participated in the procedure, and the furniture rental consultant was present for the entire procedure. [...]
--- OUTSIDE RECORDS SUMMARY | 2022-01-21 08:51 | XMS_ITS | Encounter Summary ---
:1955 Author Organization [facility] Address [address] [place] [address] Care Team Providers Name Role Phone Unavailable Primary Care Provider Unavailable Reason for Referral Outpatient (Routine) - Closed Specialty Diagnoses / Procedures Referred By Contact Refer red To Contact Spine Lia Junior APRN, C.N.PCandy, [place] M.S.N. 200 [place] [address] Referral ID Status Reason Start Date Expiration Date Visits Requ ested Visits Authorized [id number] Closed 11/12/2021 11/11/2024 1 1 RI/CAT/PET Scan (Routine) - Closed Specialty Diagnoses / Procedures Referred By Contact Refer red To Contact Radiology Diagnoses Stenosis Spinal Cervical Lia Junior APRN, [place] Procedures MR Cervical Spine without IV Contrast C.N.P., M.S.N. [address] [place] [phone] Referral ID Status Reason Start Date Expiration Date Visits Requ ested Visits Authorized [id number] Closed 11/12/2021 11/12/2022 1 1 Reason for Visit Outpatient (Routine) - Closed Specialty Diagnoses / Procedures Referred By Contact Refer red To Contact Spine Diagnoses Radiculopathy Lumbar Radiculopathy Cervical Anoop Emery M.D. [place] [facility] [address] [place] [address] Referral ID Status Reason Start Date Expiration Date Visits Requ ested Visits Authorized [id number] Closed 05/22/2021 05/22/2022 1 1 Encounter Details Date Type Department Care Team Description 11/12/2021 Comprehensive Visit Department of Spine Precious Garrett Spinal Cervical (Primary Dx); in [place] Radiculopathy Cervical; [place] [address] [facility] Spinal Stenosis Lumbar Region Without Ne urogenic Claudication [address] [place] [phone] [phone] Social History Tobacco Use Types Packs/Day Years [...] do you attend uatsdin or Never 2021 gnosticist services? Do you [...] completed or the highest Tiara, MEd, SENIOR ORACLE ADF DEVELOPER, OIDLIA) degree you have received? Sex Assigned at [...] oxycodone at night time), acupuncture , and acute care physician. Acupuncture was not helpful, and she has [...] Orthopedic Surgery Deon Herrera M.D. [address] [place], [place] [phone] (Wo rk) Scheduled Referrals Name Type Priority Associated Diagnoses Order S [facility] Spine office Outpatient Referral Routine Expected : [...]
--- OUTSIDE RECORDS SUMMARY | 2022-01-21 08:51 | XMS_ITS | Encounter Summary ---
:1955 Author Organization [facility] Address [address] [place] [address] Care Team Providers Name Role Phone Unavailable Primary Care Provider Unavailable Encounter Details Date Type Department Care Team Description 05/22/2021 Clinical Communication Department of Spine Paco[place] in [facility] [address] [place] [address] Social History Tobacco Use Types Packs/Day Years [...] do you attend quaker or Never 2021 hinduism services? Do you [...] have completed or the highest Tiara, MEd, SCAFFOLDER, ODILIA) degree you have received? Sex Assigned at Date Recorded Female 07/21/2017 2:58 PM CDT documented as of this encounter Miscellaneous Notes Telephone Encounter - Meghana Rodríguez - 05/22/2021 2:42 PM [facility] Question Set ORIAL CARTOONIST documented in this encounter Plan of Treatment Upcoming Encounters Date Type Specialty Care Team Description 02/04/2022 Office Visit Orthopedic Surgery Deon Herrera M.D. [address] [place], [place] [phone] (Wo rk) documented as of this encounter Visit Diagnoses Not on filedocumented in this encounter Additional Health Concerns Assessment Noted Time PHQ-9 Depression Total Score: 5 04/29/2016 10:10 AM CS T documented as of this encounter
--- OUTSIDE RECORDS SUMMARY | 2022-01-21 08:51 | XMS_ITS | Encounter Summary ---
:1955 Author Organization [facility] Address [address] [place] [address] Care Team Providers Name Role Phone Unavailable Primary Care Provider Unavailable Reason for Visit Outpatient (Routine) - Closed Specialty Diagnoses / Procedures Referred By Contact Refer red To Contact Vascular Medicine Diagnoses [facility] [address] [place] [address] Referral ID Status Reason Start Date Expiration Date Visits Requ ested Visits Authorized [id number] Closed 11/14/2021 11/14/2022 1 1 Encounter Details Date Type Department Care Team Description 12/18/2021 Comprehensive Visit Department of Ann-Marie Muller Embolus Pulmonary Personal History (Primary Dx); Vascular Medicine R, P.A.-C. Anticoagulant Therapy; in [place] [address] [address] [facility] Preoperative Exam [place], [place] [address] [facility] [address] [place], [place] [phone] (Work) [phone] Social History Tobacco Use Types Packs/Day Years [...] have completed or the highest Tiara, MEd, CARD FEEDER, ODILIA) degree you have received? Sex Assigned [...] CDT REFERRAL SOURCE Buster Herrera M.D. [address] [place] [phone] SUBJECTIVE CHIEF COMPLAINT / REASON FOR VISIT [...] 1-2 years ago. She has returned to [facility] with complaints of neck pain and [...] Preoperative Exam Mrs. Adames has come to [facility] with complaints of back and neck [...] Visit Orthopedic Surgery Deon Herrera M.D. [address] [place] [phone] (Wo rk) documented as of this encounter Visit Diagnoses Diagnosis Embolus Pulmonary Personal History - Marleen skyler Anticoagulant Therapy Preoperative Exam documented in this encounter Additional Health Concerns Assessment Noted Time PHQ-9 Depression Total Score: 5 04/29/2016 10:10 AM CS T documented as of this encounter
--- OUTSIDE RECORDS SUMMARY | 2022-01-21 08:51 | XMS_ITS | Encounter Summary ---
:1955 Author Organization [facility] Address [address] [place] [address] Care Team Providers Name Role Phone Unavailable Primary Care Provider Unavailable Reason for Referral Outpatient (Routine) - Closed Specialty Diagnoses / Procedures Referred By Contact Refer red To Contact Diagnoses Pain Eye Left Mychal Garcia, [facility] Procedures PM Nerve Block injection Other; left infraorbital nerve; US-Guided; Left Rayna San, M.S. [address] [place] [address] Referral ID Status Reason Start Date Expiration Date Visits Requ ested Visits Authorized [id number] Closed 06/23/2020 06/23/2021 1 1 Reason for Visit Outpatient (Routine) - Closed Specialty Diagnoses / Procedures Referred By Contact Refer red To Contact Pain Medicine Diagnoses Neuralgia Trigeminal Meghna Valdez M.D., [facility] M.P.H. [address] [phone] Referral ID Status Reason Start Date Expiration Date Visits V isits Requested Authorized [id number] Closed Specialty 06/13/2020 06/13/2021 1 1 Services Required Encounter Details Date Type Department Care Team Description 06/23/2020 Comprehensive Visit Division of Pain Mychal Garcia Pain Neuropathic (Primary Dx); Medicine in David Goodman, M.S. Pain Eye Left; [place], [facility] 1st [facility] Pain Low Back; [place], [place] Diabetes Mellitus Type 2 Wit h Diabetic Neuropathy (HCC); [address] [facility] [address] Osteoarthritis; [place], [place] [phone] Neuralgia Trig eminal [phone] (Work) [phone] Social History Tobacco Use Types Packs/Day Years [...] do you attend zoroastrianism or Never 2021 adventism services? Do you [...] Nonantalgic. Prefers use of walker to ambulate [facility]. ASSESSMENT / PLAN ASSESSMENT / PLAN #1 [...] These are outlined below. PLAN 1. Trial itwq-iit-zsaylod lroax-gtnkjh-gbay 600 mg one hour before bed. 2. [...] Office Visit Orthopedic Surgery Deon Herrera M.D. [address] [place] [phone] (Wo rk) documented as of this encounter Results PM Nerve [...] Tho Knight M.D. Authorized by: Mychal Garcia P.A.Luciano Santoyo., M.S. Care team members present 1. Alon Lemon M.D. 2. Katia Zaldivar L.PCandyNCandy PROCEDURE SUMMARY Indications: Pain Pre procedure [...] structures. ?? Images have been archived in [employer]READS: click the 'Dept Filter' button in [employer], then the 'Clear (Show All)' button, then [...] an appropriate amount of observation, the p zahida was dismissed from the clinic in good [...] fellow participated in the procedure, and the documentum consultant was present for the entire procedure. [...]
--- OUTSIDE RECORDS SUMMARY | 2022-01-21 08:51 | XMS_ITS | Encounter Summary ---
:1955 Author Organization [facility] Address [address] [place] [address] Care Team Providers Name Role Phone Unavailable Primary Care Provider Unavailable Reason for Referral Outpatient (Routine) - Closed Specialty Diagnoses / Procedures Referred By Contact Refer red To Contact Vascular Medicine Diagnoses Preoperative Exam Buster Herrera [place] [facility] M.D. [address] [place] [phone] Referral ID Status Reason Start Date Expiration Date Visits Requ ested Visits Authorized [id number] Closed 11/14/2021 11/14/2022 1 1 Outpatient (Routine) - Authorized Specialty Diagnoses / Procedures Referred By Contact Refer red To Contact Social Work Diagnoses Preoperative Exam Buster Herrera M.D. [address] [phone] Referral ID Status Reason Start Date Expiration Date Visits V isits Requested Authorized [id number] Authorized 11/14/2021 11/14/2022 1 1 Outpatient (Routine) - Closed Specialty Diagnoses / Procedures Referred By Contact Refer red To Contact Anesthesiology Diagnoses Preoperative Exam Buster Herrera M.D. [address] [phone] Referral ID Status Reason Start Date Expiration Date Visits Requ ested Visits Authorized [id number] Closed 11/14/2021 11/14/2022 1 1 Outpatient (Routine) - Closed Specialty Diagnoses / Procedures Referred By Contact Refer red To Contact Orthopedic Surgery Buster Herrera [facility] [place] [address] [place] [address] Referral ID Status Reason Start Date Expiration Date Visits Requ ested Visits Authorized [id number] Closed 11/14/2021 11/13/2024 1 1 MRI/CAT/PET Scan (Routine) - Closed Specialty Diagnoses / Procedures Referred By Contact Refer red To Contact Radiology Diagnoses Stenosis Spinal Cervical Buster Herrera M.D. [facility] Procedures CT Cervical Spine without IV Contrast [address] [place], [place] [address] Referral ID Status Reason Start Date Expiration Date Visits Requ ested Visits Authorized [id number] Closed 11/14/2021 11/14/2022 1 1 Outpatient (Routine) - Closed Specialty Diagnoses / Procedures Referred By Contact Refer red To Contact Diagnoses Preoperative Exam Buster Herrera M.D. [facility] Procedures DX Cervical Spine 4-5 Views [address] [place], [place] [address] Referral ID Status Reason Start Date Expiration Date Visits Requ ested Visits Authorized [id number] Closed 11/14/2021 11/14/2022 1 1 Outpatient (Routine) - Closed Specialty Diagnoses / Procedures Referred By Contact Refer red To Contact Diagnoses Preoperative Exam Buster Herrera M.D. [facility] [facility] Procedures BMD Bone Density Spine Hips [address] [place] [address] Referral ID Status Reason Start Date Expiration Date Visits Requ ested Visits Authorized [id number] Closed 11/14/2021 11/14/2022 1 1 Reason for Visit Reason Comments Pain Outpatient (Routine) - Closed Specialty Diagnoses / Procedures Referred By Contact Refer red To Contact Spine Diagnoses Radiculopathy Lumbar Radiculopathy Cervical Anoop Emery M.D. [place] [facility] [address] [place] [address] Referral ID Status Reason Start Date Expiration Date Visits Requ ested Visits Authorized [id number] Closed 05/22/2021 05/22/2022 1 1 Encounter Details Date Type Department Care Team Description 11/14/2021 Comprehensive Visit Department of Emmanuel Herrera Disc Disorder With Myelopathy (Primary Dx); Orthopedic Surgery Buster Lang M.D. Stenosis Spinal Cervical; in [place], [facility] 1st [facility] Preoperative Exam; [place], [place] Contact With And (Suspected) Exposure To COVID-19; [address] [facility] [address] Encounter For Preprocedural Laboratory E xamination (COVID-19) [place], [place] [phone] [address] (Work) [phone] Social History Tobacco Use Types Packs/Day Years [...] do you attend yazdanism or Never 2021 mormon services? 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 Sex Assigned at [...] Buster Herrera M.D. CT CT Job ID: [id number] documented in this encounter Plan of Treatment Upcoming Encounters Date Type Specialty Care Team Description 02/04/2022 Office Visit Orthopedic Surgery Deon Herrera M.D. [address] [place], [place] [phone] (Wo rk) Scheduled Referrals [...] flexion. Buster BRAGA DIAGNOSTIC IMAGING PROCE DEB CT Cervical Spine without IV Contrast (12/18/2021 1:02 PM CDT) Anatomical Region Laterality Modality Cervical Spine, Neuroradiology RST LOS, N/A Computed Tomography, Computed Neuroradiology ARZ LOS, Neuroradiology T omography FLA [facility] Specimen (Source) Anatomical Collection Method Collection [...] if clinically appropriate. Buster BRAGA CT PROCEDURES (ABNORMAL) Comprehensive Metabolic Panel (12/18/2021 [...] Organization Address City/State/ZIP Code Phon e Number [facility] - [address] [place], [place] [address] [facility] [place] [address] Laboratories-[facility] [address] APTT (Activated Partial Thromboplastin [...] M.D. LAB BLOOD ADD-ON Performing Organization Address City/[facility] Code Phon e Number [facility] - [address] [place], [place] [address] 05 [place], [place] [address] [place] [address]-[facility] [address] 25-Hydroxyvitamin D2 and D3 [...] and its performa nce characteristics determined by [facility] in a manner consistent with CLIA [...] Organization Address City/State/ZIP Code Phon e Number [facility] [address] [place], [place] [address] [place] [address] [facility] [address] [place] Type and Screen (with reflex Antibody ID) (12/18/2021 12:28 PM CDT) Patholo gist Method Time Signature ABORh O Pos Not 12/18/2021 ETRM applicable 3:16 PM CDT Antibody Negative Negative 12/18/2021 ETRM Screen 3:33 PM CDT Type & Screen 02/15/2022 12/18/2021 ETRM Expiration 23:59 3:16 PM CDT Testing [place] DEFAULT 12/18/2021 ETRM Location 12:44 PM CDT Specimen Anatomical Collection Method Collection Time Receive d Time (Source) Location / / Volume Laterality Blood (Blood, 12/18/2021 12:28 12/18/2021 Venous) PM CDT 12:44 PM CDT Buster Herrera M.D. LAB BLOOD BANK TEST ORDERABL ES Performing Organization Address City/[facility] Phon e Number [facility] - [address] ETRM [place] [address] [address] [facility] (ABNORMAL) Hemoglobin A1c (12/18/2021 12:28 PM CDT) [...] M.D. LAB BLOOD ADD-ON Performing Organization Address City/State/[facility] Phon e Number [facility] - [address] [place] [address] Prothrombin Time (PT) (12/18/2021 12:28 PM [...] Organization Address City/State/ZIP Code Phon e Number [facility] - 200 [place], [place] [address] [facility] [place] [place] [address] Laboratories-[facility] [address] [facility] (ABNORMAL) CBC with Differential, Blood (12/18/2021 12:28 PM CDT) [facility] gist Method Time Signature Hemoglobin 14.8 [...] Organization Address City/State/ZIP Code Phon e Number [facility] - [address] [place], [place] [address] [place] [address] Laboratories-[facility] [address] BMD Bone Density Spine [...] Mineral Density (BMD) analysis perf ormed on [employer] with serial number [id number]. ? FINDINGS: Left Hip: Femur Neck: BMD [...] including images and graphs, is available in [employer]. In the absence of other causes of [...] Mineral Density (BMD) analysis perf ormed on [employer] with serial number [id number]. FINDINGS: Left Hip: Femur Neck: BMD = [...]
--- OUTSIDE RECORDS SUMMARY | 2022-01-21 08:52 | XMS_ITS | Encounter Summary ---
:1955 Author Organization [facility] Address [address] [place] [address] Care Team Providers Name Role Phone Unavailable Primary Care Provider Unavailable Encounter Details Date Type Department Care Team Description 08/04/2018 [facility] Anoop Emery ther Dyspnea AND CLINICS D, MJay (Primary Dx) [address] [facility] [address] [place] [address] [place], [place] [phone] Social History Tobacco Use Types Packs/Day Years [...] do you attend yazidism or Never 2021 mandaeism services? Do you [...] Visit Orthopedic Surgery Deon Herrera M.D. [address] [place] [phone] (Wo rk) documented as of this encounter Visit Diagnoses Diagnosis Other Dyspnea - Primary documented in this encounter Additional Health Concerns Assessment Noted Time PHQ-9 Depression Total Score: 5 04/29/2016 10:10 AM ANATOLIY T documented as of this encounter
--- OUTSIDE RECORDS SUMMARY | 2022-01-21 08:52 | XMS_ITS | Encounter Summary ---
:1955 Author Organization [facility] Address [address] [place] [address] Care Team Providers Name Role Phone Unavailable Primary Care Provider Unavailable Reason for Visit Reason Comments Trigeminal Neuralgia Encounter Details Date Type Department Care Team Description 06/03/2020 Nurse Triage Department of Internal Viola Ortez T rigeminal Neuralgia Medicine in [facility] [address] [facility] [address] [phone] Social History Tobacco Use Types Packs/Day Years [...] do you attend christianity or Never 2021 sikh services? Do you [...] hours of pain medicine Protocols used: FACE [id number] Care Advice Patient/Caregiver understands and will follow [...] Orthopedic Surgery Deon Herrera M.D. [address] [place], [place] [phone] (Wo rk) documented as of this encounter Visit Diagnoses Not on filedocumented in this encounter Additional Health Concerns Assessment Noted Time PHQ-9 Depression Total Score: 5 04/29/2016 10:10 AM CS T documented as of this encounter
--- OUTSIDE RECORDS SUMMARY | 2022-01-21 08:52 | XMS_ITS | Encounter Summary ---
:1955 Author Organization [facility] Address [address] [place] [address] Care Team Providers Name Role Phone Unavailable Primary Care Provider Unavailable Encounter Details Date Type Department Care Team Description 08/18/2019 Clinical Communication Division of Prescheduling, Gastroenterology in [place], [place] [address] [place] [phone] Social History Tobacco Use Types Packs/Day [...] do you attend islam or Never 2021 judaism services? Do you [...] Office Visit Orthopedic Surgery Deon Herrera M.D. [address] [place] [phone] (Wo rk) documented as of this encounter Visit Diagnoses Not on filedocumented in this encounter Additional Health Concerns Assessment Noted Time PHQ-9 Depression Total Score: 5 04/29/2016 10:10 AM CS T documented as of this encounter
--- OUTSIDE RECORDS SUMMARY | 2022-01-21 08:52 | XMS_ITS | Encounter Summary ---
:1955 Author Organization [facility] Address [address] [place] [address] Care Team Providers Name Role Phone Unavailable Primary Care Provider Unavailable Encounter Details Date Type Department Care Team Description 06/06/2020 Clinical Communication Department of Neurology Meghna Valdez, in [facility] karthik Pruett, M.P.H. [address] [place] [address] [place], [place] [phone] Social History Tobacco Use Types Packs/Day [...] or relatives? How often do you attend worship or Never 2021 judaism services? Do you belong to any clubs or Yes 12/12/2021 organizations such as worship groups, unions, fraternal or athletic groups, or [...] decide whether she needs a referral to [facility] Spoke with patient and she is scheduled [...] a 8. Patient was seen at the [place] [facility] last Friday. ER increased Carbamazepine to [...] Orthopedic Surgery Deon Herrera M.D. [address] [place], [place] [phone] (Wo rk) documented as of this encounter Visit Diagnoses Not on filedocumented in this encounter Additional Health Concerns Assessment Noted Time PHQ-9 Depression Total Score: 5 04/29/2016 10:10 AM CS T documented as of this encounter
--- OUTSIDE RECORDS SUMMARY | 2022-01-21 08:52 | XMS_ITS | Encounter Summary ---
:1955 Author Organization [facility] Address [address] [place] [address] Care Team Providers Name Role Phone Unavailable Primary Care Provider Unavailable Encounter Details Date Type Department Care Team Description 06/11/2019 Clinical Communication Department of Provider, Ophthalmology in [place], [place] [address] [place] [address] Social History Tobacco Use Types Packs/Day Years [...] do you attend yarsani or Never 2021 restorationism services? Do you [...] Orthopedic Surgery Deon Herrera M.D. [address] [place] [phone] (Wo rk) documented as of this encounter Visit Diagnoses Not on filedocumented in this encounter Additional Health Concerns Assessment Noted Time PHQ-9 Depression Total Score: 5 04/29/2016 10:10 AM CS T documented as of this encounter
--- OUTSIDE RECORDS SUMMARY | 2022-01-21 08:52 | XMS_ITS | Encounter Summary ---
:1955 Author Organization [facility] Address [address] [place] [address] Care Team Providers Name Role Phone Unavailable Primary Care Provider Unavailable Encounter Details Date Type Department Care Team Description 06/16/2020 Clinical Communication Department of Sleep Meghna Valdez, Medicine in [place] Garza, M.P .H. [place] [address] [place] [phone] Social History Tobacco Use Types Packs/Day Years [...] do you attend anglican or Never 2021 cheondoism services? Do you [...] Visit Orthopedic Surgery Deon Herrera M.D. [address] [place] [phone] (Wo rk) documented as of this encounter Visit Diagnoses Not on filedocumented in this encounter Additional Health Concerns Assessment Noted Time PHQ-9 Depression Total Score: 5 04/29/2016 10:10 AM CS T documented as of this encounter
--- OUTSIDE RECORDS SUMMARY | 2022-01-21 08:52 | XMS_ITS | Encounter Summary ---
:1955 Author Organization [facility] Address [address] [place] [address] Care Team Providers Name Role Phone Unavailable Primary Care Provider Unavailable Encounter Details Date Type Department Care Team Description 04/22/2019 Clinical Communication Department of Physical Catarina Garcia, Medicine and R.N. Rehabilitation in [address] [place], [place] [address] [place] [phone] [place], [place] [phone] Social History Tobacco Use Types Packs/Day [...] do you attend christian or Never 2021 jewish services? Do you [...] having bowel difficulties again. 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 [address] [place], [place] [phone] (Wo rk) documented as of this encounter Visit Diagnoses Not on filedocumented in this encounter Additional Health Concerns Assessment Noted Time PHQ-9 Depression Total Score: 5 04/29/2016 10:10 AM CS T documented as of this encounter
--- OUTSIDE RECORDS SUMMARY | 2022-01-21 08:52 | XMS_ITS | Encounter Summary ---
:1955 Author Organization [facility] Address [address] [place] [address] Care Team Providers Name Role Phone Unavailable Primary Care Provider Unavailable Encounter Details Date Type Department Care Team Description 06/08/2020 Clinical Communication Department of Sleep Meghna Valdez, Medicine in [place] Garza, M.P .H. [place] [address] [place] [phone] Social History Tobacco Use Types Packs/Day Years [...] do you attend nondenominational or Never 2021 taoism services? Do you [...] Visit Orthopedic Surgery Deon Herrera M.D. [address] [place] [phone] (Wo rk) documented as of this encounter Visit Diagnoses Not on filedocumented in this encounter Additional Health Concerns Assessment Noted Time PHQ-9 Depression Total Score: 5 04/29/2016 10:10 AM CS T documented as of this encounter
--- OUTSIDE RECORDS SUMMARY | 2022-01-21 08:52 | XMS_ITS | Encounter Summary ---
:1955 Author Organization [facility] Address [address] [place] [address] Care Team Providers Name Role Phone Unavailable Primary Care Provider Unavailable Encounter Details Date Type Department Care Team Description 03/23/2018 Clinical Communication Department of Physical Catarina Garcia, Medicine and R.N. Rehabilitation in [address] [place], [place] [address] [place] [phone] [place], [place] [phone] Social History Tobacco Use Types Packs/Day [...] do you attend muslim or Never 2021 moravian services? Do you [...] update and she will keep in touch. 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 [address] [place] [phone] (Wo rk) documented as of this encounter Visit Diagnoses Not on filedocumented in this encounter Additional Health Concerns Assessment Noted Time PHQ-9 Depression Total Score: 5 04/29/2016 10:10 AM CS T documented as of this encounter
--- OUTSIDE RECORDS SUMMARY | 2022-01-21 08:52 | XMS_ITS | Encounter Summary ---
:1955 Author Organization [facility] Address [address] [place] [address] Care Team Providers Name Role Phone Unavailable Primary Care Provider Unavailable Encounter Details Date Type Department Care Team Description 06/01/2018 Clinical Communication Pain Rehabilitation Vasile Hale [place] in [facility], Ph.D., L .P. [address] [place] [phone] Social History Tobacco Use Types Packs/Day Years [...] do you attend orthodox or Never 2021 taoist services? Do you [...] Orthopedic Surgery Deon Herrera M.D. [address] [place] [address] [phone] (Wo rk) documented as of this encounter Visit Diagnoses Not on filedocumented in this encounter Additional Health Concerns Assessment Noted Time PHQ-9 Depression Total Score: 5 04/29/2016 10:10 AM CS T documented as of this encounter
--- OUTSIDE RECORDS SUMMARY | 2022-01-21 08:52 | XMS_ITS | Encounter Summary ---
:1955 Author Organization [facility] Address [address] [place] [address] Care Team Providers Name Role Phone Unavailable Primary Care Provider Unavailable Reason for Referral MRI/CAT/PET Scan (Routine) - Closed Specialty Diagnoses / Procedures Referred By Contact Refer red To Contact Radiology Diagnoses Neuralgia Trigeminal Meghna Valdez M.D., [facility] [place] Procedures MR Face without and with IV Contrast MR Brain without IV Contrast MI MRI BRAIN WO CNTRST HC MRI BRAIN WO CNTRST M.P.H. [address] [place] [phone] Referral ID Status Reason Start Date Expiration Date Visits Requ ested Visits Authorized [id number] Closed 06/13/2020 06/13/2021 1 1 Outpatient (Routine) - Closed Specialty Diagnoses / Procedures Referred By Contact Refer red To Contact Neurology Meghna Valdez M.D ., M.P.H. [facility] [place] Region [address] [place] [phone] Referral ID Status Reason Start Date Expiration Date Visits Requ ested Visits Authorized [id number] Closed 06/13/2020 06/13/2021 1 1 Outpatient (Routine) - Closed Specialty Diagnoses / Procedures Referred By Contact Trisha herman To Contact Pain Medicine Diagnoses Neuralgia Trigeminal Meghna Valdez M.D., [facility] M.P.H. [address] [place] [phone] Referral ID Status Reason Start Date Expiration Date Visits V isits Requested Authorized [id number] Closed Specialty 06/13/2020 06/13/2021 1 1 Services Required Reason for Visit Reason Comments Trigeminal neuralgia pain follow up . Would like refer ral to [place] as recommended Outpatient (Routine) - Closed Specialty Diagnoses / Procedures Referred By Contact Trisha herman To Contact Neurology Meghna Valdez M.D ., M.P.H. [facility] [address] [place] [phone] Referral ID Status Reason Start Date Expiration Date Visits Requ ested Visits Authorized [id number] Closed 06/09/2020 06/09/2021 1 1 Encounter Details Date Type Department Care Team Description 06/13/2020 Office Visit Department of Meghna Valdez, Neuralgia Trigeminal Neurology in [place], M.P.H. (Primary Dx) [place], [place] [address] [phone] Social History Tobacco Use Types Packs/Day Years [...] do you attend yazidi or Never 2021 mandaeism services? Do you [...] (follow up . Would like referral to [place] as recommended). HISTORY OF PRESENT ILLNESS This [...] , Disp: , Rfl: ??? MICROLET LANCET [facility] [place] [place], 2 (two) times a [...] file Gets together: Not on file Attends mandaeism service: Not on file Active member of [...] Alert and oriented x 4. 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 She has no [...] going to send the patient down to [place] to get a pain consultation since she [...] Surgery Deon Herrera M.D. [address] [place] [address] [phone] (Wo rk) Scheduled Referrals Name Type [...] Modality Head, Neuroradiology RST LOS, Neuroradiology ARZ [facility], N/A Magnetic Resonance Neuroradiology FLA [facility] Specimen (Source) Anatomical Collection Method Collection Time [...] from chronic microangiopathy, though can be from steamship agent amie central pontine myelolysis. Moderate chronic microangiopathy [...] from chronic microangiopathy, though can be from steamship agent amie central pontine myelolysis. Moderate chronic microangiopathy [...]
--- OUTSIDE RECORDS SUMMARY | 2022-01-21 08:52 | XMS_ITS | Encounter Summary ---
:1955 Author Organization [facility] Address [address] [place] [address] Care Team Providers Name Role Phone Unavailable Primary Care Provider Unavailable Encounter Details Date Type Department Care Team Description 05/05/2019 [facility] Anoop Emery I tchy Eye (Primary Dx); AND CLINICS DFlynn Pain Eye Left [address] [facility] [address] [place] [address] [place], [place] [phone] Social History Tobacco Use Types Packs/Day Years [...] do you attend temple or Never 2021 denominational services? Do you [...] Visit Orthopedic Surgery Deon Herrera M.D. [address] [place] [address] [phone] (Wo rk) documented as of this encounter Visit Diagnoses Diagnosis Itchy Eye - Primary Pain Eye Left documented in this encounter Additional Health Concerns Assessment Noted Time PHQ-9 Depression Total Score: 5 04/29/2016 10:10 AM ANATOLIY T documented as of this encounter
--- OUTSIDE RECORDS SUMMARY | 2022-01-21 08:52 | XMS_ITS | Encounter Summary ---
:1955 Author Organization [facility] Address [address] [place] [address] Care Team Providers Name Role Phone Unavailable Primary Care Provider Unavailable Reason for Visit Reason Comments GI Motility Constipation Encounter Details Date Type Department Care Team Description 04/22/2019 Clinical Division of Dominic, GI Motility; Communication Gastroenterology in [place], [place] M.B.B.S. [address] [facility] [address] [place] [phone] [facility] [phone] [place] [phone] Social History Tobacco Use Types Packs/Day Years [...] do you attend gnosticism or Never 2021 oriental orthodox services? Do you belong to any [...] physician's line called re: Pt. Notes in [employer] mention neuro. Thanks SPR[employer] Telephone Encounter - Yaneth Patel R.N. - 04/30/2019 9:36 AM CST Sent Patient Online Services message, see Patient Email Encounter dated 04/30/2019 for more details. SPR[employer]RIER Telephone Encounter - Anika Dubose R.N. - 04/28/2019 4:26 PM YOLK [employer] SUBJECTIVE CHIEF COMPLAINT / REASON FOR CALL [...] states there was not a good fit). SPR[employer] DRIER documented in this encounter Plan of Treatment Upcoming Encounters Date Type Specialty Care Team Description 02/04/2022 Office Visit Orthopedic Surgery Deon Herrera M.D. [address] [place], [place] [phone] (Wo rk) documented as of this encounter Visit Diagnoses Not on filedocumented in this encounter Additional Health Concerns Assessment Noted Time PHQ-9 Depression Total Score: 5 04/29/2016 10:10 AM CS T documented as of this encounter
--- OUTSIDE RECORDS SUMMARY | 2022-01-21 08:52 | XMS_ITS | Encounter Summary ---
:1955 Author Organization [facility] Address [address] [place] [address] Care Team Providers Name Role Phone Unavailable Primary Care Provider Unavailable Reason for Referral Outpatient (Routine) - Closed Specialty Diagnoses / Procedures Referred By Contact Refer red To Contact Neurology Meghna Valdez M.D ., M.P.H. [facility] [address] [place] [phone] Referral ID Status Reason Start Date Expiration Date Visits Requ ested Visits Authorized [id number] Closed 04/11/2020 04/11/2021 1 1 FACULTY Reason for Visit Reason Comments Trigeminal neuralgia - left Ref. Appointment Request (Routine) - Closed Specialty Diagnoses / Procedures Referred By Contact Refer red To Contact Neurology Referral ID Status Reason Start Date Expiration Date Visits Requ ested Visits Authorized [id number] Closed 03/13/2020 03/13/2021 1 1 Encounter Details Date Type Department Care Team Description 04/11/2020 Comprehensive Visit Department of Meghna Valdez ia Trigeminal Neurology in [place], (Primary Dx) [place], [place] M.P.H. [address] [place] [address] [address] [facility] [phone] [place], [place] [phone] Social History Tobacco Use Types Packs/Day [...] do you attend jain or Never 2021 gnosticist services? Do you [...] Comments Blood Pressure 126/66 04/11/2020 10:23 AM RN FACULTY Pulse 90 04/11/2020 10:23 AM RN FACULTY Temperature - - Respiratory Rate - - Oxygen Saturation - - Inhaled Oxygen Concentration - - Weight 120 kg (263 lb 10.7 oz) 04/11/2020 10:23 AM RN FACULTY Height - - Body Mass Index 38.61 09/24/2017 2:18 PM CDT documented in this encounter Patient Instructions Patient InstructionsMeghna Valdez M.D., M.P.H. - 04/11/2020 10:30 AM RN FACULTY Images from the original note were not [...] with your health care provider. ? 2007 [facility] [employer] ([facility]). All rights reserved. [id number] FACULTY documented in this encounter Consult Notes Meghna Valdez M.D., M.P.H. - 04/11/2020 10:30 AM CST SUBJECTIVE CHIEF COMPLAINT / REASON FOR VISIT Yaz Adames is a 64 y.o. female who presents for evaluation of Trigeminal neuralgia - left (Ref. ). HISTORY OF PRESENT ILLNESS I am redictating this note for the 3rd time as [facility] and [employer] have continually deleted or lost this [...] was tried. Neuro imaging was obtained at [facility] and I am able to see the [...] file Gets together: Not on file Attends gnosticist service: Not on file Active member of [...] Alert and oriented x 4. CRANIAL NERVES: administrative and program specialist II-XII intact and symmetric. She has pain [...] over 80 minutes. Meghna Valdez M.D., M.P.H. FACULTY documented in this encounter Plan of Treatment Upcoming Encounters Date Type Specialty Care Team Description 02/04/2022 Office Visit Orthopedic Surgery Deon Herrera M.D. [address] [place], [place] [phone] (Wo rk) Scheduled Referrals Name Type Priority Associated Diagnoses Order S [facility] Neurology office Outpatient Referral Routine Expe cted: visit (clinic) 07/10/2020 (Approximate), Expires: 04/11/2023 documented as of this encounter Visit Diagnoses Diagnosis Neuralgia Trigeminal - Primary documented in this encounter Additional Health Concerns Assessment Noted Time PHQ-9 Depression Total Score: 5 04/29/2016 10:10 AM CS T documented as of this encounter
--- OUTSIDE RECORDS SUMMARY | 2022-01-21 08:52 | XMS_ITS | Encounter Summary ---
:1955 Author Organization [facility] Address [address] [place] [address] Care Team Providers Name Role Phone Unavailable Primary Care Provider Unavailable Reason for Visit Reason Comments Med Refill Encounter Details Date Type Department Care Team Description 04/12/2020 Refill Department of Neurology in Meghna Valdez M.D., Med Refill [place], [place] M.P.H. [address] [facility] [address] [place] [address] [place] [phone] (Wo rk) Social History Tobacco Use Types [...] do you attend advent or Never 2021 church services? Do you [...] PM CST Patient requesting 90 day supply. CORRECTION OFFICER documented in this encounter Plan of Treatment Upcoming Encounters Date Type Specialty Care Team Description 02/04/2022 Office Visit Orthopedic Surgery Deon Herrera M.D. [address] [place], [place] [phone] (Wo rk) documented as of this encounter Visit Diagnoses Not on filedocumented in this encounter Additional Health Concerns Assessment Noted Time PHQ-9 Depression Total Score: 5 04/29/2016 10:10 AM CS T documented as of this encounter
--- OUTSIDE RECORDS SUMMARY | 2022-01-21 08:52 | XMS_ITS | Encounter Summary ---
:1955 Author Organization [facility] Address [address] [place] [address] Care Team Providers Name Role Phone Unavailable Primary Care Provider Unavailable Reason for Referral Specialty Diagnoses / Procedures Referred By Contact Refer red To Contact Jorden Xiong M.D. [facility] Region [address] [facility] [place] [phone] Referral ID Status Reason Start Date Expiration Date Visits Requ ested Visits Authorized GER IT TRAINING Encounter Details Date Type Department Care Team Description 05/17/2020 Orders Only [facility] PCP [facility] Sa paul Douglas M.D. [address] [place], [place] [phone] (Wo rk) Social History [...] do you attend samaritan or Never 2021 mandaeism services? Do you [...] Orthopedic Surgery Deon Herrera M.D. [address] [place], [place] [address] [phone] (Wo rk) Scheduled Referrals [...]
--- OUTSIDE RECORDS SUMMARY | 2022-01-21 08:52 | XMS_ITS | Encounter Summary ---
:1955 Author Organization [facility] Address [address] [place] [address] Care Team Providers Name Role Phone Unavailable Primary Care Provider Unavailable Encounter Details Date Type Department Care Team Description 05/18/2020 Orders Only Department of Neurology in Meghna Valdez M.D.[place], [place] M.P.H. [address] [place] [address] [address] [place] [address] [place], [place] [phone] (Wo rk) Social History Tobacco Use [...] do you attend jew or Never 2021 tenriism services? Do you [...] Orthopedic Surgery Deon Herrera M.D. [address] [place] [phone] (Wo rk) documented as of this encounter Visit Diagnoses Not on filedocumented in this encounter Additional Health Concerns Assessment Noted Time PHQ-9 Depression Total Score: 5 04/29/2016 10:10 AM CS T documented as of this encounter
--- OUTSIDE RECORDS SUMMARY | 2022-01-21 08:52 | XMS_ITS | Encounter Summary ---
:1955 Author Organization [facility] Address [address] [place] [address] Care Team Providers Name Role Phone Unavailable Primary Care Provider Unavailable Reason for Referral Outpatient (Routine) - Closed Specialty Diagnoses / Procedures Referred By Contact Refer red To Contact Neurology Meghna Valdez M.D ., M.P.H. [facility] [address] [place] [phone] Referral ID Status Reason Start Date Expiration Date Visits Requ ested Visits Authorized [id number] Closed 06/09/2020 06/09/2021 1 1 Encounter Details Date Type Department Care Team Description 06/09/2020 Orders Only Department of Neurology in Meghna Valdez M.D., [place], [place] M.P.H. 200 [facility] [address] [place] [phone] [place], [place] [phone] (Wo rk) Social History Tobacco Use Types [...] 12/12/2021 organizations such as muslim groups, unions, fraAcceloWeb or athletic groups, or school groups? How [...] Orthopedic Surgery Deon Herrera M.D. [address] [place], [place] [address] [phone] (Wo rk) Scheduled Referrals Name Type Priority Associated Diagnoses Order S [facility] Neurology office Outpatient Referral Routine Expe cted: visit (clinic) 06/09/2020 (Approximate), Expires: 06/10/2023 documented as of this encounter Visit Diagnoses Not on filedocumented in this encounter Additional Health Concerns Assessment Noted Time PHQ-9 Depression Total Score: 5 04/29/2016 10:10 AM CS T documented as of this encounter
--- OUTSIDE RECORDS SUMMARY | 2022-01-21 08:52 | XMS_ITS | Encounter Summary ---
:1955 Author Organization [facility] Address [address] [place] [address] Care Team Providers Name Role Phone Unavailable Primary Care Provider Unavailable Encounter Details Date Type Department Care Team Description 05/19/2020 Immunization Department of Family Medicine, [address] [address] [facility] [phone] Social History Tobacco Use Types Packs/Day Years [...] do you attend pentecostalism or Never 2021 voodoo services? Do you [...] Orthopedic Surgery Deon Herrera M.D. [address] [place], [place] [address] [phone] (Wo rk) documented as of this encounter Visit Diagnoses Not on filedocumented in this encounter Additional Health Concerns Assessment Noted Time PHQ-9 Depression Total Score: 5 04/29/2016 10:10 AM CS T documented as of this encounter
--- OUTSIDE RECORDS SUMMARY | 2022-01-21 08:53 | XMS_ITS | Encounter Summary ---
:1955 Author Organization [facility] Address [address] [place] [address] Care Team Providers Name Role Phone Unavailable Primary Care Provider Unavailable Encounter Details Date Type Department Care Team Description 01/20/2018 Hospital Encounter Department of Dominic, Henry Incont inence Fecal Radiology, Kendy HartS. [facility], in [address] [place] [phone] [place], [place] [phone] (Work) [phone] Social History Tobacco Use Types Packs/Day Years [...] do you attend voodoo or Never 2021 restorationist services? Do you [...] Garcia in PM&R as she worked with [facility] for 2 weeks. Elida will reach out to [facility] to discuss further strategies. No additional testing needed for now. ORATE LEGAL ASSISTANT documented in this encounter Nursing Notes Ida [...] ordered and outlined in medication reference document. ORATE LEGAL ASSISTANT Ida Torrez R.N. - 01/20/2018 8:10 AM CST Does patient have known or suspected rectal perforation? No If no???continue Has patient had past rectal surgeries? No If no???continue Prepare and administered as ordered and outlined in medication reference document. ORATE LEGAL ASSISTANT documented in this encounter Plan of Treatment Upcoming Encounters Date Type Specialty Care Team Description 02/04/2022 Office Visit Orthopedic Surgery Deon Herrera M.D. [address] [place], [place] [phone] (Wo rk) documented as of this encounter Procedures Procedure Name Priority Date/Time Associated Comments Diagnosis MR PROCTOGRAM RAD - Routine 01/20/2018 9:29 Incontinence Fecal Resu lts for this DYNAMIC AND (most inpatients AM CORPORATE LEGAL ASSISTANT procedure a re in SPHINCTER EVAL and all the results WITHOUT IV outpatients) section. CONTRAST documented in this encounter Results MR Proctogram Dynamic and Sphincter Eval without IV Contrast (01/20/2018 9:29 AM CORPORATE LEGAL ASSISTANT) Anatomical Region Laterality Modality Abdomen, Pelvis, Abdominal RST LOS, Abdominal ARZ LOS, N/A Magnetic Resonance Abdominal FLA LOS Specimen (Source) Anatomical Collection Method Collection Time Re ceived Time Location / / Volume Laterality 01/20/2018 2:31 PM CORPORATE LEGAL ASSISTANT Impressions 01/20/2018 2:48 PM CORPORATE LEGAL ASSISTANT IMPRESSION: ?? 1. Abnormal defecation with paradoxical contraction of the puborectalis during attempted evacuation. 2. No MRI findings of pelvic floor weakn ess. 3. Normal MRI appearance of the anal sph incters. Narrative 01/20/2018 2:48 PM CORPORATE LEGAL ASSISTANT EXAM: ??MR PROCTOGRAM DYNAMIC AND SPHINCTER EVAL [...] of the anal sph incters. Henry Noriega Domingo MRI PROCEDURES documented in this encounter Visit Diagnoses Diagnosis Incontinence Fecal documented in this encounter Administered Medications Inactive Administered Medications - up to 3 most recent administrations Medication Order MAR Action Action Date Dose Rate Site lidocaine HCl 2 % topical Given 01/20/2018 8:15 AM CORPORATE LEGAL ASSISTANT 1 applica tion jelly 1 application (UROJET) 1 application (5 mL), rectal, Once, On Fri01/20/18 at 0830, For 1 dose, Imaging Protocol Orders ultrasound gel topical gel 60-180 mL Given 01/20/2018 8:45 AM CORPORATE LEGAL ASSISTANT 180 mL 60-180 mL, rectal, Once, On Fri01/20/18 at 0830, For 1 dose, Imaging Protocol Orders, Dose per Radiant Medication Guidelines documented in this encounter Additional Health Concerns Assessment Noted Time PHQ-9 Depression Total Score: 5 04/29/2016 10:10 AM CS T documented as of this encounter
--- OUTSIDE RECORDS SUMMARY | 2022-01-21 08:53 | XMS_ITS | Encounter Summary ---
:1955 Author Organization [facility] Address [address] [place] [address] Care Team Providers Name Role Phone Unavailable Primary Care Provider Unavailable Encounter Details Date Type Department Care Team Description 01/14/2018 Clinical Communication Department of Physical Catarina Garcia, Medicine and R.N. Rehabilitation in [address] [place], [place] [address] [place] [phone] [place], [place] [phone] Social History Tobacco Use Types Packs/Day [...] do you attend judaism or Never 2021 christianity services? Do you [...] PM CDT I returned a call to [facility]. She completed the two week Evacuation [...] Orthopedic Surgery Deon Herrera M.D. [address] [place], [place] [address] [phone] (Wo rk) documented as of this encounter Visit Diagnoses Not on filedocumented in this encounter Additional Health Concerns Assessment Noted Time PHQ-9 Depression Total Score: 5 04/29/2016 10:10 AM CS T documented as of this encounter
--- OUTSIDE RECORDS SUMMARY | 2022-01-21 08:53 | XMS_ITS | Encounter Summary ---
:1955 Author Organization [facility] Address [address] [place] [address] Care Team Providers Name Role Phone Unavailable Primary Care Provider Unavailable Reason for Visit Appointment Request (Routine) - Canceled Specialty Diagnoses / Procedures Referred By Contact Refer red To Contact Henry Alfaro M. B.B.S. [address] [place] [phone] Referral ID Status Reason Start Date Expiration Date Visits V isits Requested Authorized [id number] Canceled 10/06/2017 10/06/2018 1 Encounter Details Date Type Department Care Team Description 12/17/2017 Nurse Only Department of Physical Henry Alfaro M.B.B.S. [address] [place] [phone] Medicine and Rehabilitation in Elida Garcia R.N. [address] [place] [phone] [place], [place] [address] [place] [phone] Social History Tobacco Use Types Packs/Day [...] do you attend pentecostal or Never 2021 mu-ism services? Do you belong to any clubs or Yes 12/12/2021 organizations such as pentecostal groups, unions, fraCruiseWise or athletic groups, or school groups? How [...] Orthopedic Surgery Deon Herrera M.D. [address] [place], [place] [phone] (Wo rk) documented as of this encounter Visit Diagnoses Diagnosis Dysfunction Pelvic Floor Female documented in this encounter Additional Health Concerns Assessment Noted Time PHQ-9 Depression Total Score: 5 04/29/2016 10:10 AM CS T documented as of this encounter
--- OUTSIDE RECORDS SUMMARY | 2022-01-21 08:53 | XMS_ITS | Encounter Summary ---
:1955 Author Organization [facility] Address [address] [place] [address] 17323 Care Team Providers Name Role Phone Unavailable Primary Care Provider Unavailable Reason for Visit Appointment Request (Routine) - Canceled Specialty Diagnoses / Procedures Referred By Contact Refer red To Contact Henry Alfaro M. B.B.S. [address] [place] [phone] Referral ID Status Reason Start Date Expiration Date Visits V isits Requested Authorized [id number] Canceled 10/06/2017 10/06/2018 1 Encounter Details Date Type Department Care Team Description 12/16/2017 Nurse Only Department of Physical Henry Alfaro M.B.B.S. [address] [place] [phone] Medicine and Rehabilitation in Elida Garcia R.N. [address] [place] [address] [phone] [place], [place] [address] [place] [address] [phone] Social History Tobacco Use Types Packs/Day [...] do you attend lutheran or Never 2021 presybeterian services? Do you belong to any clubs or Yes 12/12/2021 organizations such as lutheran groups, unions, fraSafeNet or athletic groups, or school groups? How [...] several weeks but is waiting as a billet checker to get in earlier. I wonder how significant her pelvic prolapse is if at all. Elida Garcia R.N. 12/16/2017 9:33 AM documented in this encounter Plan of Treatment Upcoming Encounters Date Type Specialty Care Team Description 02/04/2022 Office Visit Orthopedic Surgery Deon Herrera M.D. [address] [place], [place] [phone] (Wo rk) documented as of this encounter Visit Diagnoses Diagnosis Dysfunction Pelvic Floor Female documented in this encounter Additional Health Concerns Assessment Noted Time PHQ-9 Depression Total Score: 5 04/29/2016 10:10 AM CS T documented as of this encounter
--- OUTSIDE RECORDS SUMMARY | 2022-01-21 08:53 | XMS_ITS | Encounter Summary ---
:1955 Author Organization [facility] Address [address] [place] [address] 6[address]28 Care Team Providers Name Role Phone Unavailable Primary Care Provider Unavailable Reason for Visit Appointment Request (Routine) - Canceled Specialty Diagnoses / Procedures Referred By Contact Refer red To Contact Henry Alfaro M. B.B.S. [address] [place] [phone] Referral ID Status Reason Start Date Expiration Date Visits V isits Requested Authorized [id number] Canceled 10/06/2017 10/06/2018 1 Encounter Details Date Type Department Care Team Description 12/16/2017 Nurse Only Department of Physical Henry Alfaro M.B.B.S. [address] [place] [phone] Medicine and Rehabilitation in Elida Garcia R.N. [address] [place] [address] [phone] [place], [place] [address] [place] [address] [phone] Social History Tobacco Use Types Packs/Day [...] do you attend taoist or Never 2021 mormon services? Do you belong to any clubs or Yes 12/12/2021 organizations such as taoist groups, unions, fraNanoPowers or athletic groups, or school groups? How [...] Orthopedic Surgery Deon Herrera M.D. [address] [place], [place] [phone] (Wo rk) documented as of this encounter Visit Diagnoses Diagnosis Dysfunction Pelvic Floor Female documented in this encounter Additional Health Concerns Assessment Noted Time PHQ-9 Depression Total Score: 5 04/29/2016 10:10 AM CS T documented as of this encounter
--- OUTSIDE RECORDS SUMMARY | 2022-01-21 08:53 | XMS_ITS | Encounter Summary ---
:1955 Author Organization [facility] Address [address] [place] [address] 11157 Care Team Providers Name Role Phone Unavailable Primary Care Provider Unavailable Reason for Visit Appointment Request (Routine) - Canceled Specialty Diagnoses / Procedures Referred By Contact Refer red To Contact Henry Alfaro M. B.B.S. [address] [place] [phone] Referral ID Status Reason Start Date Expiration Date Visits V isits Requested Authorized [id number] Canceled 10/06/2017 10/06/2018 1 Encounter Details Date Type Department Care Team Description 12/17/2017 Nurse Only Department of Physical Henry Alfaro M.B.B.S. [address] [place] [phone] Medicine and Rehabilitation in Elida Garcia R.N. [address] [place] [address] [phone] [place], [place] [address] [place] [address] [phone] Social History Tobacco Use Types Packs/Day [...] do you attend worship or Never 2021 restorationism services? Do you belong to any clubs or Yes 12/12/2021 organizations such as worship groups, unions, fraGuangdong Baol[employer] or athletic groups, or school groups? How [...] Visit Orthopedic Surgery Deon Herrera M.D. [address] [place] [phone] (Wo rk) documented as of this encounter Visit Diagnoses Diagnosis Dysfunction Pelvic Floor Female documented in this encounter Additional Health Concerns Assessment Noted Time PHQ-9 Depression Total Score: 5 04/29/2016 10:10 AM CS T documented as of this encounter
--- OUTSIDE RECORDS SUMMARY | 2022-01-21 08:53 | XMS_ITS | Encounter Summary ---
:1955 Author Organization [facility] Address [address] [place] [address] 31721 Care Team Providers Name Role Phone Unavailable Primary Care Provider Unavailable Encounter Details Date Type Department Care Team Description 01/05/2018 Clinical Communication Department of Physical Catarina Garcia, Medicine and R.N. Rehabilitation in [address] [place], [place] [address] [place] [phone] [place], [place] [phone] Social History Tobacco Use Types Packs/Day [...] do you attend faith or Never 2021 mormon services? Do you [...] Visit Orthopedic Surgery Deon Herrera M.D. [address] [place] [address] [phone] (Wo rk) documented as of this encounter Visit Diagnoses Not on filedocumented in this encounter Additional Health Concerns Assessment Noted Time PHQ-9 Depression Total Score: 5 04/29/2016 10:10 AM CS T documented as of this encounter
--- OUTSIDE RECORDS SUMMARY | 2022-01-21 08:53 | XMS_ITS | Encounter Summary ---
:1955 Author Organization [facility] Address [address] [place] [address] Care Team Providers Name Role Phone Unavailable Primary Care Provider Unavailable Reason for Visit Reason Onset Date Comments Results 01/21/2018 Encounter Details Date Type Department Care Team Description 01/21/2018 Clinical Communication Department of Physical Rue, Catarina Cid, Results Medicine and R.N. Rehabilitation in [address] [place] [address] [place] [phone] [place] [phone] [phone] Social History Tobacco Use Types Packs/Day Years [...] do you attend mandaen or Never 2021 cheondoism services? Do you [...] message on the portal which she understands. BRUSHER documented in this encounter Plan of Treatment Upcoming Encounters Date Type Specialty Care Team Description 02/04/2022 Office Visit Orthopedic Surgery Deon Herrera M.D. [address] [place], [place] [phone] (Wo rk) documented as of this encounter Visit Diagnoses Not on filedocumented in this encounter Additional Health Concerns Assessment Noted Time PHQ-9 Depression Total Score: 5 04/29/2016 10:10 AM CS T documented as of this encounter
--- OUTSIDE RECORDS SUMMARY | 2022-01-21 08:53 | XMS_ITS | Encounter Summary ---
:1955 Author Organization [facility] Address [address] [place] [address] Care Team Providers Name Role Phone Unavailable Primary Care Provider Unavailable Encounter Details Date Type Department Care Team Description 12/12/2017 Orders Only Division of Dominic, Henry Incontinence Fecal Gastroenterology in [place], [place], [place] [address] [place] [address] [place] [phone] [phone] Social History Tobacco Use Types Packs/Day Years [...] do you attend spiritism or Never 2021 evangelical services? Do you belong to any clubs [...] Orthopedic Surgery Deon Herrera M.D. [address] [place] [address] [phone] (Wo rk) documented as of this encounter Results MR Proctogram Dynamic and Sphincter Eval without IV Contrast (01/20/2018 9:29 AM FORKLIFT TECHNICIAN) Anatomical Region Laterality Modality Abdomen, Pelvis, Abdominal RST LOS, Abdominal ARZ LOS, N/A Magnetic Resonance Abdominal FLA LOS Specimen (Source) Anatomical Collection Method Collection Time Re ceived Time Location / / Volume Laterality 01/20/2018 2:31 PM FORKLIFT TECHNICIAN Impressions 01/20/2018 2:48 PM FORKLIFT TECHNICIAN IMPRESSION: ?? 1. Abnormal defecation with paradoxical contraction of the puborectalis during attempted evacuation. 2. No MRI findings of pelvic floor weakn ess. 3. Normal MRI appearance of the anal sph incters. Narrative 01/20/2018 2:48 PM FORKLIFT TECHNICIAN EXAM: ??MR PROCTOGRAM DYNAMIC AND SPHINCTER EVAL [...]
--- OUTSIDE RECORDS SUMMARY | 2022-01-21 08:53 | XMS_ITS | Encounter Summary ---
:1955 Author Organization [facility] Address [address] [place] [address] 8[address] Care Team Providers Name Role Phone Unavailable Primary Care Provider Unavailable Reason for Visit Appointment Request (Routine) - Canceled Specialty Diagnoses / Procedures Referred By Contact Refer red To Contact Henry Alfaro M. B.B.S. [address] [place] [phone] Referral ID Status Reason Start Date Expiration Date Visits V isits Requested Authorized [id number] Canceled 10/06/2017 10/06/2018 1 Encounter Details Date Type Department Care Team Description 12/18/2017 Nurse Only Department of Physical Henry Alfaro M.B.B.S. [address] [place] [phone] Medicine and Rehabilitation in Elida Garcia R.N. [address] [place] [address] [phone] [place], [place] [address] [place] [address] [phone] Social History Tobacco Use Types Packs/Day [...] do you attend christianity or Never 2021 taoism services? Do you belong to any clubs or Yes 12/12/2021 organizations such as christianity groups, unions, fraRam Power or athletic groups, or school groups? How [...] Orthopedic Surgery Deon Herrera M.D. [address] [place], [place] [phone] (Wo rk) documented as of this encounter Visit Diagnoses Diagnosis Dysfunction Pelvic Floor Female documented in this encounter Additional Health Concerns Assessment Noted Time PHQ-9 Depression Total Score: 5 04/29/2016 10:10 AM CS T documented as of this encounter
--- OUTSIDE RECORDS SUMMARY | 2022-01-21 08:53 | XMS_ITS | Encounter Summary ---
:1955 Author Organization [facility] Address [address] [place] [address] 26694 Care Team Providers Name Role Phone Unavailable Primary Care Provider Unavailable Reason for Visit Appointment Request (Routine) - Canceled Specialty Diagnoses / Procedures Referred By Contact Refer red To Contact Henry Alfaro M. B.B.S. [address] [place] [address] [phone] Referral ID Status Reason Start Date Expiration Date Visits V isits Requested Authorized [id number] Canceled 10/06/2017 10/06/2018 1 Encounter Details Date Type Department Care Team Description 12/18/2017 Nurse Only Department of Physical Henry Alfaro M.B.B.S. [address] [place] [phone] Medicine and Rehabilitation in Elida Garcia R.N. [address] [place] [address] [phone] [place], [place] [address] [place] [address] [phone] Social History Tobacco Use Types Packs/Day [...] do you attend quaker or Never 2021 sabianist services? Do you belong to any clubs or Yes 12/12/2021 organizations such as quaker groups, unions, fraWochit or athletic groups, or school groups? How [...] Orthopedic Surgery Deon Herrera M.D. [address] [place], [place] [phone] (Wo rk) documented as of this encounter Visit Diagnoses Diagnosis Dysfunction Pelvic Floor Female documented in this encounter Additional Health Concerns Assessment Noted Time PHQ-9 Depression Total Score: 5 04/29/2016 10:10 AM CS T documented as of this encounter
--- OUTSIDE RECORDS SUMMARY | 2022-01-21 08:53 | XMS_ITS | Encounter Summary ---
:1955 Author Organization [facility] Address [address] [place] [address]48 Care Team Providers Name Role Phone Unavailable Primary Care Provider Unavailable Encounter Details Date Type Department Care Team Description 01/12/2018 Clinical Communication Department of Physical Richard, Ida Medicine and K Rehabilitation in [address] [place] [address] [place] [phone] [place] [phone] [phone] Social History Tobacco Use Types Packs/Day Years [...] do you attend tenriism or Never 2021 restorationism services? Do you [...] Burger - 01/12/2018 11:40 AM CDT Elida- Mrs. HaLucianoMultani called and would like if you could give her a call back today please. Thanks! Ida documented in this encounter Plan of Treatment Upcoming Encounters Date Type Specialty Care Team Description 02/04/2022 Office Visit Orthopedic Surgery Deon Herrera M.D. [address] [place] [address] [phone] (Wo rk) documented as of this encounter Visit Diagnoses Not on filedocumented in this encounter Additional Health Concerns Assessment Noted Time PHQ-9 Depression Total Score: 5 04/29/2016 10:10 AM CS T documented as of this encounter
--- OUTSIDE RECORDS SUMMARY | 2022-01-21 08:53 | XMS_ITS | Encounter Summary ---
:1955 Author Organization [facility] Address [address] [place] [address] Care Team Providers Name Role Phone Unavailable Primary Care Provider Unavailable Encounter Details Date Type Department Care Team Description 12/12/2017 Clinical Communication Division of Elida Garcia, Gastroenterology in [place], [place] [address] [facility] [address] [place] [phone] Social History Tobacco Use Types Packs/Day Years [...] do you attend worship or Never 2021 hoahaoism services? Do you [...] Orthopedic Surgery Deon Herrera M.D. [address] [place], [place] [phone] (Wo rk) documented as of this encounter Visit Diagnoses Not on filedocumented in this encounter Additional Health Concerns Assessment Noted Time PHQ-9 Depression Total Score: 5 04/29/2016 10:10 AM CS T documented as of this encounter
--- OUTSIDE RECORDS SUMMARY | 2022-01-21 08:53 | XMS_ITS | Encounter Summary ---
:1955 Author Organization [facility] Address [address] [place] [address] 87644 Care Team Providers Name Role Phone Unavailable Primary Care Provider Unavailable Reason for Visit Appointment Request (Routine) - Canceled Specialty Diagnoses / Procedures Referred By Contact Refer red To Contact Henry Alfaro M. B.B.S. [address] [place] [phone] Referral ID Status Reason Start Date Expiration Date Visits V isits Requested Authorized [id number] Canceled 10/06/2017 10/06/2018 1 Encounter Details Date Type Department Care Team Description 12/12/2017 Nurse Only Department of Physical Henry Alfaro M.B.B.S. [address] [place] [phone] Medicine and Rehabilitation in Elida Garcia R.N. [address] [place] [address] [phone] [place], [place] [address] [place] [address] [phone] Social History Tobacco Use Types Packs/Day [...] do you attend bahai or Never 2021 oriental orthodox services? Do you belong to any clubs or Yes 12/12/2021 organizations such as bahai groups, unions, fraeTec or athletic groups, or school groups? How [...] medium to large bowel movement that was [place] type 3, after about 5 minutes which [...] Office Visit Orthopedic Surgery Deon Herrera M.D. [address] [place] [address] [phone] (Wo ) documented as of this encounter Visit Diagnoses Diagnosis Dysfunction Pelvic Floor Female documented in this encounter Additional Health Concerns Assessment Noted Time PHQ-9 Depression Total Score: 5 04/29/2016 10:10 AM CS T documented as of this encounter
--- OUTSIDE RECORDS SUMMARY | 2022-01-21 08:53 | XMS_ITS | Encounter Summary ---
:1955 Author Organization [facility] Address [address] [place] [address] 04752 Care Team Providers Name Role Phone Unavailable Primary Care Provider Unavailable Reason for Visit Appointment Request (Routine) - Canceled Specialty Diagnoses / Procedures Referred By Contact Refer red To Contact Henry Alfaro M. B.B.S. [address] [place] [phone] Referral ID Status Reason Start Date Expiration Date Visits V isits Requested Authorized [id number] Canceled 10/06/2017 10/06/2018 1 Encounter Details Date Type Department Care Team Description 12/15/2017 Nurse Only Department of Physical Henry Alfaro M.B.B.S. [address] [place] [phone] Medicine and Rehabilitation in Elida Garcia R.N. [address] [place] [address] [phone] [place], [place] [address] [place] [address] [phone] Social History Tobacco Use Types Packs/Day [...] do you attend mormonism or Never 2021 restorationist services? Do you belong to any clubs or Yes 12/12/2021 organizations such as mormonism groups, unions, fraVaxart or athletic groups, or school groups? How [...] a great weekend. She worked with the [employer] biofeedback equipment on Friday and the [...] Orthopedic Surgery Deon Herrera M.D. [address] [place], [place] [phone] (Wo rk) documented as of this encounter Visit Diagnoses Diagnosis Dysfunction Pelvic Floor Female documented in this encounter Additional Health Concerns Assessment Noted Time PHQ-9 Depression Total Score: 5 04/29/2016 10:10 AM CS T documented as of this encounter
--- OUTSIDE RECORDS SUMMARY | 2022-01-21 08:53 | XMS_ITS | Encounter Summary ---
:1955 Author Organization [facility] Address [address] [place] [address]68 Care Team Providers Name Role Phone Unavailable Primary Care Provider Unavailable Encounter Details Date Type Department Care Team Description 01/01/2018 Clinical Communication Department of Physical Richard, Ida Medicine and K Rehabilitation in [address] [place] [address] [place] [phone] [place] [address] [phone] Social History Tobacco Use Types Packs/Day Years [...] do you attend yarsani or Never 2021 baptism services? Do you [...] AM CDT Elida, Can you please call Candy Adames when you get back next week. Thank you- Ida documented in this encounter Plan of Treatment Upcoming Encounters Date Type Specialty Care Team Description 02/04/2022 Office Visit Orthopedic Surgery Deon Herrera M.D. [address] [place], [place] [phone] (Wo rk) documented as of this encounter Visit Diagnoses Not on filedocumented in this encounter Additional Health Concerns Assessment Noted Time PHQ-9 Depression Total Score: 5 04/29/2016 10:10 AM CS T documented as of this encounter
--- OUTSIDE RECORDS SUMMARY | 2022-01-21 08:53 | XMS_ITS | Encounter Summary ---
:1955 Author Organization [facility] Address [address] [place] [address] Care Team Providers Name Role Phone Unavailable Primary Care Provider Unavailable Reason for Visit Appointment Request (Routine) - Canceled Specialty Diagnoses / Procedures Referred By Contact Refer red To Contact Henry Alfaro M. B.B.S. [address] [place] [phone] Referral ID Status Reason Start Date Expiration Date Visits V isits Requested Authorized [id number] Canceled 10/06/2017 10/06/2018 1 Encounter Details Date Type Department Care Team Description 12/19/2017 Nurse Only Department of Physical Henry Alafro M.B.B.S. [address] [place] [address] [phone] Medicine and Rehabilitation in Elida Garcia R.N. [address] [place] [address] [phone] [place], [place] [address] [place] [address] [phone] Social History Tobacco Use Types Packs/Day [...] 12/12/2021 organizations such as pentecostalism groups, unions, fraFlite or athletic groups, or school groups? How [...] Orthopedic Surgery Deon Herrera M.D. [address] [place], [place] [phone] (Wo rk) documented as of this encounter Visit Diagnoses Diagnosis Dysfunction Pelvic Floor Female documented in this encounter Additional Health Concerns Assessment Noted Time PHQ-9 Depression Total Score: 5 04/29/2016 10:10 AM CS T documented as of this encounter
--- OUTSIDE RECORDS SUMMARY | 2022-01-21 08:53 | XMS_ITS | Encounter Summary ---
:1955 Author Organization [facility] Address [address] [place] [address] Care Team Providers Name Role Phone Unavailable Primary Care Provider Unavailable Reason for Visit Appointment Request (Routine) - Canceled Specialty Diagnoses / Procedures Referred By Contact Refer red To Contact Henry Alfaro M. B.B.S. [address] [place] [phone] Referral ID Status Reason Start Date Expiration Date Visits V isits Requested Authorized [id number] Canceled 10/06/2017 10/06/2018 1 Encounter Details Date Type Department Care Team Description 12/15/2017 Nurse Only Department of Physical Henry Alfaro M.B.B.S. [address] [place] [phone] Medicine and Rehabilitation in Elida Garcia R.N. [address] [place] [address] [phone] [place], [place] [address] [place] [address] [phone] Social History Tobacco Use Types Packs/Day [...] do you attend orthodox or Never 2021 evangelical services? Do you belong to any clubs or Yes 12/12/2021 organizations such as orthodox groups, unions, fraANT Farm or athletic groups, or school groups? How [...] Orthopedic Surgery Deon Herrera M.D. [address] [place], [place] [phone] (Wo rk) documented as of this encounter Visit Diagnoses Diagnosis Dysfunction Pelvic Floor Female documented in this encounter Additional Health Concerns Assessment Noted Time PHQ-9 Depression Total Score: 5 04/29/2016 10:10 AM CS T documented as of this encounter
--- OUTSIDE RECORDS SUMMARY | 2022-01-21 08:54 | XMS_ITS | Encounter Summary ---
:1955 Author Organization [facility] Address [address] [place] [address] 7[address] Care Team Providers Name Role Phone Unavailable Primary Care Provider Unavailable Reason for Visit Appointment Request (Routine) - Canceled Specialty Diagnoses / Procedures Referred By Contact Refer red To Contact Henry Alfaro M. B.B.S. [address] [place] [phone] Referral ID Status Reason Start Date Expiration Date Visits V isits Requested Authorized [id number] Canceled 10/06/2017 10/06/2018 1 Encounter Details Date Type Department Care Team Description 12/12/2017 Nurse Only Department of Physical Henry Alfaro M.B.B.S. [address] [place] [phone] Medicine and Rehabilitation in Elida Garcia R.N. [address] [place] [address] [phone] [place], [place] [address] [place] [address] [phone] Social History Tobacco Use Types Packs/Day [...] do you attend taoist or Never 2021 spiritism services? Do you belong to any clubs or Yes 12/12/2021 organizations such as taoist groups, unions, fraAqdot or athletic groups, or school groups? How [...] Office Visit Orthopedic Surgery Deon Herrera M.D. [address] [place] [address] [phone] (Wo rk) documented as of this encounter Visit Diagnoses Diagnosis Dysfunction Pelvic Floor Female documented in this encounter Additional Health Concerns Assessment Noted Time PHQ-9 Depression Total Score: 5 04/29/2016 10:10 AM CS T documented as of this encounter
--- OUTSIDE RECORDS SUMMARY | 2022-01-21 08:54 | XMS_ITS | Encounter Summary ---
:1955 Author Organization [facility] Address [address] [place] [address] Care Team Providers Name Role Phone Unavailable Primary Care Provider Unavailable Encounter Details Date Type Department Care Team Description 10/03/2017 Clinical Communication Department of Physical Ri nn, Linda Cid Medicine and [phone] Rehabilitation in (Work) [place], [place] [address] [place] [phone] Social History Tobacco Use Types Packs/Day [...] do you attend adventist or Never 2021 baptist services? Do you [...] Orthopedic Surgery Deon Herrera M.D. [address] [place], [place] [phone] (Wo rk) documented as of this encounter Visit Diagnoses Not on filedocumented in this encounter Additional Health Concerns Assessment Noted Time PHQ-9 Depression Total Score: 5 04/29/2016 10:10 AM CS T documented as of this encounter
--- OUTSIDE RECORDS SUMMARY | 2022-01-21 08:54 | XMS_ITS | Encounter Summary ---
:1955 Author Organization [facility] Address [address] [place] [address] Care Team Providers Name Role Phone Unavailable Primary Care Provider Unavailable Reason for Visit Appointment Request (Routine) - Canceled Specialty Diagnoses / Procedures Referred By Contact Refer red To Contact Henry Alfaro M. B.B.S. [address] [place] [phone] Referral ID Status Reason Start Date Expiration Date Visits V isits Requested Authorized [id number] Canceled 10/06/2017 10/06/2018 1 Encounter Details Date Type Department Care Team Description 12/08/2017 Nurse Only Department of Physical Henry Alfaro M.B.B.S. [address] [place] [phone] Medicine and Rehabilitation in lEida Garcia R.N. [address] [place] [address] [phone] [place], [place] [address] [place] [address] [phone] Social History Tobacco Use Types Packs/Day [...] do you attend restoration or Never 2021 synagogue services? Do you belong to any clubs or Yes 12/12/2021 organizations such as restoration groups, unions, fraPotentia Semiconductor or athletic groups, or school groups? How [...] several small BMs a day that are [place] Type 2 or 4. Stool is more [...] Of note, the patient participated in the [place] three week Pain Rehabilitation Program three yeas ago and says it was life changing. PHYSICAL EVALUATION Proceeded with EMG assessment of the pelvic floor muscles. Position of the patient: Side-lying Equipment used: [employer] rectal sensor and [employer] EMG biofeedback [...] home program for continuing the above goals. skilled nursing goal: At the end of the two week Home Program she will verbalize an easier, less time consuming, bowel movements. Bowel and Bladder Outcome Measure Scores at Intake: Not completed. Elida Garcia R.N. 12/08/2017 9:11 AM documented in this encounter Plan of Treatment Upcoming Encounters Date Type Specialty Care Team Description 02/04/2022 Office Visit Orthopedic Surgery Deon Herrera M.D. [address] [place], [place] [phone] (Wo rk) documented as of this encounter Visit Diagnoses Diagnosis Dysfunction Pelvic Floor Female documented in this encounter Additional Health Concerns Assessment Noted Time PHQ-9 Depression Total Score: 5 04/29/2016 10:10 AM CS T documented as of this encounter
--- OUTSIDE RECORDS SUMMARY | 2022-01-21 08:54 | XMS_ITS | Encounter Summary ---
:1955 Author Organization [facility] Address [address] [place] [address] Care Team Providers Name Role Phone Unavailable Primary Care Provider Unavailable Encounter Details Date Type Department Care Team Description 10/01/2017 Clinical Communication Department of Physical [facility], Medicine and [place] Mendoza M.D. Rehabilitation in [address] [place] [address] [place] [phone] [place] [phone] Social History Tobacco Use Types Packs/Day [...] do you attend shinto or Never 2021 voodoo services? Do you [...] Visit Orthopedic Surgery Deon Herrera M.D. [address] [place] [phone] (Wo rk) documented as of this encounter Visit Diagnoses Not on filedocumented in this encounter Additional Health Concerns Assessment Noted Time PHQ-9 Depression Total Score: 5 04/29/2016 10:10 AM CS T documented as of this encounter
--- OUTSIDE RECORDS SUMMARY | 2022-01-21 08:54 | XMS_ITS | Encounter Summary ---
:1955 Author Organization [facility] Address [address] [place] [address] Care Team Providers Name Role Phone Unavailable Primary Care Provider Unavailable Reason for Visit Appointment Request (Routine) - Canceled Specialty Diagnoses / Procedures Referred By Contact Refer red To Contact Henry Alfaro M. B.B.S. [address] [place] [phone] Referral ID Status Reason Start Date Expiration Date Visits V isits Requested Authorized [id number] Canceled 10/06/2017 10/06/2018 1 Encounter Details Date Type Department Care Team Description 12/10/2017 Nurse Only Department of Physical Henry Alfaro M.B.B.S. [address] [place] [phone] Medicine and Rehabilitation in Elida Garcia R.N. [address] [place] [address] [phone] [place], [place] [address] [place] [address] [phone] Social History Tobacco Use Types Packs/Day [...] do you attend rastafarian or Never 2021 buddhist services? Do you belong to any clubs or Yes 12/12/2021 organizations such as rastafarian groups, unions, fraZaarly or athletic groups, or school groups? How [...] the day. Yaz will work with the loaner EMGbiofeedback equipment on her own this evening. She demonstrates independence with the equipment. Elida Garcia R.N. documented in this encounter Plan of Treatment Upcoming Encounters Date Type Specialty Care Team Description 02/04/2022 Office Visit Orthopedic Surgery Deon Herrera M.D. [address] [place] [phone] (Wo rk) documented as of this encounter Visit Diagnoses Diagnosis Dysfunction Pelvic Floor Female documented in this encounter Additional Health Concerns Assessment Noted Time PHQ-9 Depression Total Score: 5 04/29/2016 10:10 AM CS T documented as of this encounter
--- OUTSIDE RECORDS SUMMARY | 2022-01-21 08:54 | XMS_ITS | Encounter Summary ---
:1955 Author Organization [facility] Address [address] [place] [address] Care Team Providers Name Role Phone Unavailable Primary Care Provider Unavailable Reason for Visit Reason Onset Date Comments pelvic floor dysfunction 09/29/2017 Constipation 09/29/2017 Encounter Details Date Type Department Care Team Description 09/29/2017 Clinical Department of Physical Henry Alfaro M.B.B.S. [address] [place] [address] [phone] pelvic floor Communication Medicine and Cecilia Arreaga, BurtonNCandy [address] [place] [phone] dysfunction; Rehabilitation in [place], [place] [address] [place] [phone] Social History Tobacco Use Types Packs/Day Years [...] do you attend latter-day or Never 2021 oriental orthodox services? Do [...] ? Pt ok to proceed Referral # [id number] RADHA Tellez Telephone Encounter - Linda Cardoso [...] assessed using the [facility] Disorders Program Assessment ([id number]). 1. In the last week has Ms. [...] Visit Orthopedic Surgery Deon Herrera M.D. [address] [place] [phone] ( ligia) documented as of this encounter Visit Diagnoses Not on filedocumented in this encounter Additional Health Concerns Assessment Noted Time PHQ-9 Depression Total Score: 5 04/29/2016 10:10 AM CS T documented as of this encounter
--- OUTSIDE RECORDS SUMMARY | 2022-01-21 08:54 | XMS_ITS | Encounter Summary ---
:1955 Author Organization [facility] Address [address] [place] [address] Care Team Providers Name Role Phone Unavailable Primary Care Provider Unavailable Reason for Visit Appointment Request (Routine) - Canceled Specialty Diagnoses / Procedures Referred By Contact Refer red To Contact Henry Alfaro M. B.B.S. [address] [place] [phone] Referral ID Status Reason Start Date Expiration Date Visits V isits Requested Authorized [id number] Canceled 10/06/2017 10/06/2018 1 Encounter Details Date Type Department Care Team Description 12/10/2017 Nurse Only Department of Physical Henry Alfaro M.B.B.S. [address] [place] [phone] Medicine and Rehabilitation in Elida Garcia R.N. [address] [place] [address] [phone] [place], [place] [address] [place] [address] [phone] Social History Tobacco Use Types Packs/Day [...] do you attend mu-ism or Never 2021 jew services? Do you belong to any clubs or Yes 12/12/2021 organizations such as mu-ism groups, unions, fraTonic Health or athletic groups, or school groups? How [...] had large results initially liquid, ending with [place] Type 3. 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 I will discuss my findings with her GI doctor. Elida Garcia R.N. 12/10/2017 8:36 AM documented in this encounter Plan of Treatment Upcoming Encounters Date Type Specialty Care Team Description 02/04/2022 Office Visit Orthopedic Surgery Deon Herrera M.D. [address] [place], [place] [phone] (Wo rk) documented as of this encounter Visit Diagnoses Diagnosis Dysfunction Pelvic Floor Female documented in this encounter Additional Health Concerns Assessment Noted Time PHQ-9 Depression Total Score: 5 04/29/2016 10:10 AM CS T documented as of this encounter
--- OUTSIDE RECORDS SUMMARY | 2022-01-21 08:54 | XMS_ITS | Encounter Summary ---
:1955 Author Organization [facility] Address [address] [place] [address] Care Team Providers Name Role Phone Unavailable Primary Care Provider Unavailable Encounter Details Date Type Department Care Team Description 10/22/2017 Clinical Communication Department of Physical Richard, [place] Medicine and K Rehabilitation in [address] [place] [address] [place] [phone] [place] [address] [phone] Social History Tobacco Use Types Packs/Day Years [...] do you attend congregation or Never 2021 jainism services? Do you [...] Orthopedic Surgery Deon Herrera M.D. [address] [place], [place] [phone] (Wo rk) documented as of this encounter Visit Diagnoses Not on filedocumented in this encounter Additional Health Concerns Assessment Noted Time PHQ-9 Depression Total Score: 5 04/29/2016 10:10 AM CS T documented as of this encounter
--- OUTSIDE RECORDS SUMMARY | 2022-01-21 08:54 | XMS_ITS | Encounter Summary ---
:1955 Author Organization [facility] Address [address] [place] [address] Care Team Providers Name Role Phone Unavailable Primary Care Provider Unavailable Reason for Visit Reason Comments Patient Education Appointment Request (Routine) - Closed Specialty Diagnoses / Procedures Referred By Contact Refer red To Contact Patient Education Referral ID Status Reason Start Date Expiration Date Visits Requ ested Visits Authorized [id number] Closed 11/25/2017 11/25/2018 1 1 Encounter Details Date Type Department Care Team Description 12/10/2017 Education Department of Patient Pepe Mar Education in [place], [address] [place] [address] [address] [facility] [phone] [place] [address] [phone] Social History Tobacco Use Types Packs/Day Years [...] do you attend episcopalian or Never 2021 advent services? Do you belong to any clubs [...] Orthopedic Surgery Deon Herrera M.D. [address] [place], [place] [phone] (Wo rk) documented as of this encounter Visit Diagnoses Not on filedocumented in this encounter Additional Health Concerns Assessment Noted Time PHQ-9 Depression Total Score: 5 04/29/2016 10:10 AM CS T documented as of this encounter
--- OUTSIDE RECORDS SUMMARY | 2022-01-21 08:54 | XMS_ITS | Encounter Summary ---
:1955 Author Organization [facility] Address [address] [place] [address] Care Team Providers Name Role Phone Unavailable Primary Care Provider Unavailable Encounter Details Date Type Department Care Team Description 12/03/2017 Clinical Communication Department of Physical Richard, Ida Medicine and K Rehabilitation in [address] [place] [address] [place] [phone] [place] [phone] [phone] Social History Tobacco Use Types Packs/Day Years [...] do you attend episcopalian or Never 2021 judaism services? Do you [...] Orthopedic Surgery Deon Herrera M.D. [address] [place], [place] [phone] (Wo rk) documented as of this encounter Visit Diagnoses Not on filedocumented in this encounter Additional Health Concerns Assessment Noted Time PHQ-9 Depression Total Score: 5 04/29/2016 10:10 AM CS T documented as of this encounter
--- OUTSIDE RECORDS SUMMARY | 2022-01-21 08:54 | XMS_ITS | Encounter Summary ---
:1955 Author Organization [facility] Address [address] [place] [address] Care Team Providers Name Role Phone Unavailable Primary Care Provider Unavailable Reason for Visit Appointment Request (Routine) - Canceled Specialty Diagnoses / Procedures Referred By Contact Refer red To Contact Henry Alfaro M. B.B.S. [address] [place] [phone] Referral ID Status Reason Start Date Expiration Date Visits V isits Requested Authorized [id number] Canceled 10/06/2017 10/06/2018 1 Encounter Details Date Type Department Care Team Description 12/11/2017 Nurse Only Department of Physical Henry Alfaro M.B.B.S. [address] [place] [phone] Medicine and Rehabilitation in Elida Garcia R.N. [address] [place] [address] [phone] [place], [place] [address] [place] [address] [phone] Social History Tobacco Use Types Packs/Day [...] 12/12/2021 organizations such as moravian groups, unions, fraCodinGame or athletic groups, or school groups? How [...] Office Visit Orthopedic Surgery Deon Herrera M.D. 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
--- OUTSIDE RECORDS SUMMARY | 2022-01-21 08:54 | XMS_ITS | Encounter Summary ---
:1955 Author Organization [facility] Address [address] [place] [address] Care Team Providers Name Role Phone Unavailable Primary Care Provider Unavailable Reason for Visit Appointment Request (Routine) - Canceled Specialty Diagnoses / Procedures Referred By Contact Refer red To Contact Henry Alfaro M. B.B.S. [address] [place] [phone] Referral ID Status Reason Start Date Expiration Date Visits V isits Requested Authorized [id number] Canceled 10/06/2017 10/06/2018 1 Encounter Details Date Type Department Care Team Description 12/09/2017 Nurse Only Department of Physical Henry Alfaro M.B.B.S. [address] [place] [phone] Medicine and Rehabilitation in Elida Garcia R.N. [address] [place] [address] [phone] [place], [place] [address] [place] [address] [phone] Social History Tobacco Use Types Packs/Day [...] do you attend sikh or Never 2021 druze services? Do you belong to any clubs or Yes 12/12/2021 organizations such as sikh groups, unions, fraJogg or athletic groups, or school groups? How [...] Office Visit Orthopedic Surgery Deon Herrera M.D. 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
--- OUTSIDE RECORDS SUMMARY | 2022-01-21 08:54 | XMS_ITS | Encounter Summary ---
:1955 Author Organization [facility] Address [address] [place] [address] Care Team Providers Name Role Phone Unavailable Primary Care Provider Unavailable Reason for Visit Appointment Request (Routine) - Canceled Specialty Diagnoses / Procedures Referred By Contact Refer red To Contact Henry Alfaro M. B.B.S. [address] [place] [phone] Referral ID Status Reason Start Date Expiration Date Visits V isits Requested Authorized [id number] Canceled 10/06/2017 10/06/2018 1 Encounter Details Date Type Department Care Team Description 12/08/2017 Nurse Only Department of Physical Henry Alfaro M.B.B.S. [address] [place] [phone] Medicine and Rehabilitation in Elida Garcia R.N. [address] [place] [address] [phone] [place], [place] [address] [place] [address] [phone] Social History Tobacco Use Types Packs/Day [...] do you attend alevism or Never 2021 caodaism services? Do you belong to any clubs or Yes 12/12/2021 organizations such as alevism groups, unions, fraFashion One or athletic groups, or school groups? How [...] Orthopedic Surgery Deon Herrera M.D. 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
--- OUTSIDE RECORDS SUMMARY | 2022-01-21 08:54 | XMS_ITS | Encounter Summary ---
:1955 Author Organization [facility] Address [address] [place] [address] Care Team Providers Name Role Phone Unavailable Primary Care Provider Unavailable Encounter Details Date Type Department Care Team Description 11/28/2017 Clinical Communication Division of Henry Alfaro Gastroenterology in , [place] [address] [facility] [address] [place] [address] [phone] Social History Tobacco Use Types Packs/Day Years [...] do you attend mu-ism or Never 2021 orthodoxy services? Do you [...] Ida Burger Sent: 11/24/2017 1:37 PM To: [facility] Subject: Return Please schedule a return [...] Ida Burger Sent: 11/24/2017 1:37 PM To: [facility] Subject: Return Please schedule a return with Dr. Alfaro prior to the last Friday of this patient's 2 week program. Thank you documented in this encounter Plan of Treatment Upcoming Encounters Date Type Specialty Care Team Description 02/04/2022 Office Visit Orthopedic Surgery Deon Herrera M.D. [address] [place], [place] [phone] (Wo rk) documented as of this encounter Visit Diagnoses Not on filedocumented in this encounter Additional Health Concerns Assessment Noted Time PHQ-9 Depression Total Score: 5 04/29/2016 10:10 AM CS T documented as of this encounter
--- OUTSIDE RECORDS SUMMARY | 2022-01-21 08:54 | XMS_ITS | Encounter Summary ---
:1955 Author Organization [facility] Address [address] [place] [address] Care Team Providers Name Role Phone Unavailable Primary Care Provider Unavailable Reason for Visit Appointment Request (Routine) - Canceled Specialty Diagnoses / Procedures Referred By Contact Refer red To Contact Henry Alfaro M. B.B.S. [address] [place] [phone] Referral ID Status Reason Start Date Expiration Date Visits V isits Requested Authorized [id number] Canceled 10/06/2017 10/06/2018 1 Encounter Details Date Type Department Care Team Description 12/09/2017 Nurse Only Department of Physical Henry Alfaro M.B.B.S. [address] [place] [phone] Medicine and Rehabilitation in Elida Garcia R.N. [address] [place] [address] [phone] [place], [place] [address] [place] [address] [phone] Social History Tobacco Use Types Packs/Day [...] do you attend druze or Never 2021 pentecostal services? Do you belong to any clubs or Yes 12/12/2021 organizations such as druze groups, unions, fraPresidio or athletic groups, or school groups? How [...] Orthopedic Surgery Deon Herrera M.D. 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
--- OUTSIDE RECORDS SUMMARY | 2022-01-21 08:54 | XMS_ITS | Encounter Summary ---
:1955 Author Organization [facility] Address [address] [place] [address] Care Team Providers Name Role Phone Unavailable Primary Care Provider Unavailable Reason for Visit Appointment Request (Routine) - Canceled Specialty Diagnoses / Procedures Referred By Contact Refer red To Contact Henry Alfaro M. B.B.S. [address] [place] [phone] Referral ID Status Reason Start Date Expiration Date Visits V isits Requested Authorized [id number] Canceled 10/06/2017 10/06/2018 1 Encounter Details Date Type Department Care Team Description 12/09/2017 Nurse Only Department of Physical Henry Alfaro M.B.B.S. [address] [place] [phone] Medicine and Rehabilitation in Elida Garcia R.N. [address] [place] [address] [phone] [place], [place] [address] [place] [address] [phone] Social History Tobacco Use Types Packs/Day [...] do you attend presybeterian or Never 2021 roman catholic services? Do you belong to any clubs or Yes 12/12/2021 organizations such as presybeterian groups, unions, fraDesall or athletic groups, or school groups? How [...] Orthopedic Surgery Deon Herrera M.D. 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
--- OUTSIDE RECORDS SUMMARY | 2022-01-21 08:54 | XMS_ITS | Encounter Summary ---
:1955 Author Organization [facility] Address [address] [place] [address] Care Team Providers Name Role Phone Unavailable Primary Care Provider Unavailable Reason for Visit Appointment Request (Routine) - Canceled Specialty Diagnoses / Procedures Referred By Contact Refer red To Contact Henry Alfaro M. B.B.S. [address] [place] [phone] Referral ID Status Reason Start Date Expiration Date Visits V isits Requested Authorized [id number] Canceled 10/06/2017 10/06/2018 1 Encounter Details Date Type Department Care Team Description 12/11/2017 Nurse Only Department of Physical Henry Alfaro M.B.B.S. [address] [place] [phone] Medicine and Rehabilitation in Elida Garcia R.N. [address] [place] [address] [phone] [place], [place] [address] [place] [address] [phone] Social History Tobacco Use Types Packs/Day [...] do you attend confucianist or Never 2021 pentecostalism services? Do you belong to any clubs or Yes 12/12/2021 organizations such as confucianist groups, unions, fraDitech Communications or athletic groups, or school groups? How [...] ASSESSMENT / PLAN Yaz worked with the [employer] EMG biofeedback equipment last evening sitting on [...] Orthopedic Surgery Deon Herrera M.D. 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
--- OUTSIDE RECORDS SUMMARY | 2022-01-21 08:54 | XMS_ITS | Encounter Summary ---
:1955 Author Organization [facility] Address [address] [place] [address] Care Team Providers Name Role Phone Unavailable Primary Care Provider Unavailable Reason for Visit Reason Onset Date Comments Constipation 10/23/2017 Encounter Details Date Type Department Care Team Description 10/23/2017 Clinical Communication Department of Physical Rue, Catarina Cid, Constipation Medicine and R.N. Rehabilitation in [address] [place] [address] [place] [address] [place] [address] [phone] Social History Tobacco Use Types Packs/Day Years [...] do you attend bahai or Never 2021 voodoo services? Do you [...] Visit Orthopedic Surgery Deon Herrera M.D. [address] [place] [address] [phone] (Wo rk) documented as of this encounter Visit Diagnoses Not on filedocumented in this encounter Additional Health Concerns Assessment Noted Time PHQ-9 Depression Total Score: 5 04/29/2016 10:10 AM CS T documented as of this encounter
--- OUTSIDE RECORDS SUMMARY | 2022-01-21 08:55 | XMS_ITS | Encounter Summary ---
:1955 Author Organization [facility] Address [address] [place] [address] Care Team Providers Name Role Phone Unavailable Primary Care Provider Unavailable Reason for Visit Reason Comments Constipation Encounter Details Date Type Department Care Team Description 09/23/2017 Clinical Support Enema Prep Facility in [facility] M.B.BCandySCandy [address] [place] [address] [place], [place] Maria Fernanda Torres R.N. [address] [place] [phone] [address] [place] [address] Social History Tobacco Use Types Packs/Day [...] rectal enema administration prior to: rectal manometry deaf interpreter needed: No; Romanian is patient's preferred language. Enema administered by: RN Type of enema(s) administered: Fleet enema(s) administered 1 Time enema(s) administered: 1310 documented in this encounter Plan of Treatment Upcoming Encounters Date Type Specialty Care Team Description 02/04/2022 Office Visit Orthopedic Surgery Deon Herrera M.D. [address] [place], [place] [phone] (Wo rk) documented as [...]
--- OUTSIDE RECORDS SUMMARY | 2022-01-21 08:55 | XMS_ITS | Encounter Summary ---
:1955 Author Organization [facility] Address [address] [place] [address] Care Team Providers Name Role Phone Unavailable Primary Care Provider Unavailable Encounter Details Date Type Department Care Team Description 09/24/2017 Clinical Communication Division of Haroon Engel Endocrinology in Flynn Guzman [place], [place] [address] [facility] [address] [place] [phone] Social History Tobacco Use Types Packs/Day Years [...] do you attend hoahaoism or Never 2021 catholic services? Do you [...] Telephone Encounter - Maria Fernanda Del Rio Felicitas - 09/24/2017 9:05 AM CDT S: Caller/Dept - Mrs. Adames Phone # - [phone] B: Patient was last seen on : July 21 A: Patient has a bad nail on the big toe on left foot and she would like to have it partially removed. Her primary is away and she needs it done jose, today if possible R: Please advise if OK and if you will be sending orders/ PAC to contact patient Thank you Maria Fernanda Respond back to P RST END Scheduling documented in this encounter Plan of Treatment Upcoming Encounters Date Type Specialty Care Team Description 02/04/2022 Office Visit Orthopedic Surgery Deon Herrera M.D. [address] [place], [place] [phone] (Wo rk) documented as of this encounter Visit Diagnoses Diagnosis Diabetes Mellitus Type 2 (HCC) - Primary documented in this encounter Additional Health Concerns Assessment Noted Time PHQ-9 Depression Total Score: 5 04/29/2016 10:10 AM CS T documented as of this encounter
--- OUTSIDE RECORDS SUMMARY | 2022-01-21 08:55 | XMS_ITS | Encounter Summary ---
:1955 Author Organization [facility] Address [address] [place] [address] Care Team Providers Name Role Phone Unavailable Primary Care Provider Unavailable Reason for Referral Outpatient (Routine) - Closed Specialty Diagnoses / Referred By Referred To Cont act Procedures Contact Gastroenterology and Diagnoses Constipation Rectocele Other Specified Disorders Of Muscle [facility] [place] [address] [address] Referral ID Status Reason Start Date Expiration Date Visits Requ ested Visits Authorized [id number] Closed 09/02/2017 09/02/2018 1 1 Encounter Details Date Type Department Care Team Description 09/01/2017 [facility] Anoop Emery Specified Disorders Of Muscle (Primary Dx); AND MARVIN Ruiz M.D. Constipation; [address] [place] [address] 74 [facility] [place] [address] [place], [place] [phone] Social History Tobacco Use Types Packs/Day Years [...] do you attend pentecostal or Never 2021 gnosticist services? Do you [...] Orthopedic Surgery Deon Herrera M.D. [address] [place], [place] [phone] (Wo rk) Scheduled Referrals [...]
--- OUTSIDE RECORDS SUMMARY | 2022-01-21 08:55 | XMS_ITS | Encounter Summary ---
:1955 Author Organization [facility] Address [address] [place] [address] Care Team Providers Name Role Phone Unavailable Primary Care Provider Unavailable Encounter Details Date Type Department Care Team Description 09/23/2017 Hospital Encounter Department of Radiology, Juan Alfaro, [facility], [place] [address] [facility] [address] [place] [address] [phone] Social History Tobacco Use Types Packs/Day Years [...] do you attend hindu or Never 2021 restorationist services? Do you [...] Orthopedic Surgery Deon Herrera M.D. [address] [place] [phone] (Wo rk) documented as of this encounter [...] both hips. Henry Noriega [facility] JOSE BOYD documented in this encounter Visit Diagnoses Diagnosis Constipation documented in this encounter Additional Health Concerns Assessment Noted Time PHQ-9 Depression Total Score: 5 04/29/2016 10:10 AM CS T documented as of this encounter
--- OUTSIDE RECORDS SUMMARY | 2022-01-21 08:55 | XMS_ITS | Encounter Summary ---
:1955 Author Organization [facility] Address [address] [place] [address] Care Team Providers Name Role Phone Unavailable Primary Care Provider Unavailable Reason for Referral Medication Prior Authorization (Routine) - Closed Specialty Diagnoses / Procedures Referred By Contact Refer red To Contact Vivek Man M. D. 600 [facility], [address] 310 [place], [place] [address] Referral ID Status Reason Start Date Expiration Date Visits Requ ested Visits Authorized [id number] Closed Encounter Details Date Type Department Care Team Description 07/29/2017 Comprehensive Visit Department of Vivek Man nitis Achilles Right (Primary Dx); Sports Medicine lee ann Cid M.D. Pain Low Back; [place] [address] [place] Primary Osteoar thritis Lumbar Spine [facility], [address] [place] [address] [phone] Social History Tobacco Use Types Packs/Day Years [...] do you attend religious or Never 2021 taoist services? Do you [...] current program in physical therapy working at [employer]. She will continue her aerobic exercise program, [...] time, greater than 15 minutes. Job ID: [id number] documented in this encounter Plan of Treatment Upcoming Encounters Date Type Specialty Care Team Description 02/04/2022 Office Visit Orthopedic Surgery Deon Herrera M.D. [address] [place] [address] [phone] (Wo rk) documented as of this encounter Visit Diagnoses Diagnosis Tendonitis Achilles Right - Primary Pain Low Back Unspecified Primary Osteoarthritis Lumbar Spine documented in this encounter Additional Health Concerns Assessment Noted Time PHQ-9 Depression Total Score: 5 04/29/2016 10:10 AM CS T documented as of this encounter
--- OUTSIDE RECORDS SUMMARY | 2022-01-21 08:55 | XMS_ITS | Encounter Summary ---
:1955 Author Organization [facility] Address [address] [place] [address] Care Team Providers Name Role Phone Unavailable Primary Care Provider Unavailable Reason for Visit Reason Comments Follow-up Encounter Details Date Type Department Care Team Description 07/21/2017 Office Visit Division of Haroon Engel Diabetes Mellambar us Type 2 (HCC) (Primary Dx); Endocrinology in [place] Guzman Diabetes Mellitus Type 2 With Diabetic N europathy (HCC) [place], [place] [address] [facility] [address] [place] [address] [phone] Social History Tobacco Use Types Packs/Day Years [...] do you attend islam or Never 2021 advent services? Do you [...] Orthopedic Surgery Deon Herrera M.D. 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
--- OUTSIDE RECORDS SUMMARY | 2022-01-21 08:55 | XMS_ITS | Encounter Summary ---
:1955 Author Organization [facility] Address [address] [place] [address] Care Team Providers Name Role Phone Unavailable Primary Care Provider Unavailable Encounter Details Date Type Department Care Team Description 09/24/2017 Office Visit Division of Henry Alfaro Gastroenterology in C, M.B.B.S. Floor Female [place], [place] [address] [place] [address] (Primary Dx) [address] [place] [address] [phone] Social History Tobacco Use Types Packs/Day Years [...] Office Visit Orthopedic Surgery Deon Herrera M.D. 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
--- OUTSIDE RECORDS SUMMARY | 2022-01-21 08:55 | XMS_ITS | Encounter Summary ---
:1955 Author Organization [facility] Address [address] [place] [address] Care Team Providers Name Role Phone Unavailable Primary Care Provider Unavailable Reason for Visit Reason Comments Med Refill Encounter Details Date Type Department Care Team Description 05/28/2017 Refill Department of Physical Medicine Vivek Man M.D. Med Refill and Rehabilitation in 600 [place], [place] 310 [address] [place], [place] [address] [place] [phone] [phone] Social History Tobacco Use Types Packs/Day Years [...] do you attend christian or Never 2021 tenriism services? Do you [...] Orthopedic Surgery Deon Herrera M.D. [address] [place] [phone] (Wo rk) documented as of this encounter Visit Diagnoses Not on filedocumented in this encounter Additional Health Concerns Assessment Noted Time PHQ-9 Depression Total Score: 5 04/29/2016 10:10 AM CS T documented as of this encounter
--- OUTSIDE RECORDS SUMMARY | 2022-01-21 08:55 | XMS_ITS | Encounter Summary ---
:1955 Author Organization [facility] [place] [facility] Address [address] [place] [address] Care Team Providers Name Role Phone Unavailable Primary Care Provider Unavailable Encounter Details Date Type Department Care Team Description 09/23/2017 Hospital Encounter Department of Laboratory Juan Alfaro, Constipation Medicine and Pathology, [facility] in [address] [place] [address] [place] [address] [place] [address] [phone] Social History Tobacco Use Types Packs/Day Years [...] do you attend jew or Never 2021 yazidism services? Do you [...] Orthopedic Surgery Deon Herrera M.D. [address] [place] [address] [place] [phone] (Wo rk) documented as [...] Signature Calcium, 9.8 8.8 - 10.2 09/23/2017 [facility] Total, S mg/dL 1:14 PM CDT [facility] Specimen Anatomical Collection Method Collection Time Receive d Time (Source) Location / / Volume Laterality Blood (Blood, 09/23/2017 12:08 09/23/2017 Venous) PM CDT 12:33 PM CDT Henry MuñozB.S. LAB BLOOD ADD-ON Performing Organization Address City/[facility]/ZIP Code Phon e Number [facility] - [address] Thyroid Function [place] (09/23/2017 12:08 PM CDT) athologist Signature TSH, Sensitive 1.4 0.3 - 4.2 09/23/2017 [facility] mIU/L 1:14 PM CDT [facility] Specimen Anatomical Collection Method Collection Time Receive d Time (Source) Location / / Volume Laterality Blood (Blood, 09/23/2017 12:08 09/23/2017 Venous) PM CDT 12:33 PM CDT Henry MuñozB.S. LAB BLOOD ADD-ON Performing Organization Address City/[facility]/ZIP Code Phon e Number [facility] - [address] documented in this encounter Visit Diagnoses Diagnosis Constipation documented in this encounter Additional Health Concerns Assessment Noted Time PHQ-9 Depression Total Score: 5 04/29/2016 10:10 AM CS T documented as of this encounter
--- OUTSIDE RECORDS SUMMARY | 2022-01-21 08:55 | XMS_ITS | Encounter Summary ---
:1955 Author Organization [facility] Address [address] [place] [address] Care Team Providers Name Role Phone Unavailable Primary Care Provider Unavailable Reason for Visit Reason Comments Constipation being seen in [facility] Outpatient (Routine) - Closed Specialty Diagnoses / Referred By Referred To Cont act Procedures Contact Gastroenterology and Diagnoses Constipation Rectocele Other Specified Disorders Of Muscle [facility] [place] [address] [place] [address] Referral ID Status Reason Start Date Expiration Date Visits Requ ested Visits Authorized [id number] Closed 09/02/2017 09/02/2018 1 1 Encounter Details Date Type Department Care Team Description 09/23/2017 Comprehensive Visit Division of Dago Emery M.D. [address] [place] [address] Constipation (Primary Dx); Gastroenterology in DominicHenry bermudez M.B.BCandySCandy [address] [place] [phone] Rectocele; [place], [place] Other Specified Disorders Of Muscle; [address] [facility] [place] [phone] Social History Tobacco Use Types Packs/Day Years [...] do you attend yarsani or Never 2021 sikhism services? Do you [...] but now reports her stools are usually Chelan type 6. She has tried other medications; [...] breathing technique which was suggested by her field auditor. In addition to her difficulty with evacuation, she also complains of urinary frequency, which has been more recent. Her last colonoscopy was within the last 10 years, and she apparently did not have polyps on that colonoscopy. She does not have any family history of colon cancer and does not report any blood in her stool. She was recently seen by a vp client services and was referred here for possible pelvic [...] sober for 32 years. She has embraced Lutheran and feels this has helped significantly in [...] , Disp: , Rfl: ??? MICROLET LANCET [facility], 2 (two) times a day. for testing, [...] is a past smoker and has a 21-[id number]-plbt history of smoking. She used to smoke [...] Surgery Deon Herrera M.D. [address] [place], [place] [phone] (Wo rk) Scheduled Orders Name Type Priority Associated Diagnoses Order S chedule Anorectal Manometry GI Routine Constipation Expected : 09/23/2017 (Approximate), Expires: 09/23/2020 Enema prep Procedures Routine Constipation Expected: 09/23 (Approximate), Expires: 09/23/2020 documented as of this encounter Results Calcium, Total (09/23/2017 12:08 PM CDT) athologist Signature Calcium, 9.8 8.8 - 10.2 09/23/2017 [facility] Total, S mg/dL 1:14 PM CDT [facility] Specimen Anatomical Collection Method Collection Time Receive d Time (Source) Location / / Volume Laterality Blood (Blood, 09/23/2017 12:08 09/23/2017 Venous) PM CDT 12:33 PM CDT Henry MuñozB.S. LAB BLOOD ADD-ON Performing Organization Address City/[facility] Phon e Number [facility] - [address] Thyroid Function [place] (09/23/2017 12:08 PM CDT) athologist Signature TSH, Sensitive 1.4 0.3 - 4.2 09/23/2017 [facility] mIU/L 1:14 PM CDT [facility] Specimen Anatomical Collection Method Collection Time Receive d Time (Source) Location / / Volume Laterality Blood (Blood, 09/23/2017 12:08 09/23/2017 Venous) PM CDT 12:33 PM CDT Henry PatiñoBCandyB.S. LAB BLOOD ADD-ON Performing Organization Address City/[facility] Code Phon e Number [facility] - [address] documented in this encounter Visit Diagnoses Diagnosis Constipation - Primary Rectocele Other Specified Disorders Of Muscle Prolapse Vaginal documented in this encounter Additional Health Concerns Assessment Noted Time PHQ-9 Depression Total Score: 5 04/29/2016 10:10 AM CS T documented as of this encounter
--- OUTSIDE RECORDS SUMMARY | 2022-01-21 08:55 | XMS_ITS | Encounter Summary ---
:1955 Author Organization [facility] Address [address] [place] [address] Care Team Providers Name Role Phone Unavailable Primary Care Provider Unavailable Reason for Visit Reason Comments Toe Pain left first toe infection Encounter Details Date Type Department Care Team Description 09/24/2017 Emergency [facility] Kermit Be Ingrown Toenail Emergency Department D.O. (Primary Dx) [address] [place] [address] [address] [place] [address] [phone] (Wo rk) Social History Tobacco Use Types [...] do you attend adventism or Never 2021 evangelical services? Do you [...] be sent through Care Everywhere. Ingrown Toenail (Nauruan)documented in this encounter Medications at Time of [...] first toe infection) HISTORY OF PRESENT ILLNESS aYz Adames is a 62 year old female [...] Review of Systems. Kermit Be D.O. 09/24/17 1447 Kermit Be D.O. 09/24/17 5790 documented in this encounter Plan of Treatment Upcoming Encounters Date Type Specialty Care Team Description 02/04/2022 Office Visit Orthopedic Surgery Deon Herrera M.D. [address] [place] [phone] (Wo rk) documented as of this [...] mg/mL) injection 150 mg (MARCAINE) (COMP LETED) 1413 (Given - Provider: Ronda Ramírez R.N.) 150 mg (30 mL), infiltration, Once, On Fri09/24/17 at 1443, For 1 dose documented in this encounter Additional Health Concerns Assessment Noted Time PHQ-9 Depression Total Score: 5 04/29/2016 10:10 AM CS T documented as of this encounter
--- OUTSIDE RECORDS SUMMARY | 2022-01-21 08:55 | XMS_ITS | Encounter Summary ---
:1955 Author Organization [facility] Address [address] [place] [address] Care Team Providers Name Role Phone Unavailable Primary Care Provider Unavailable Encounter Details Date Type Department Care Team Description 09/23/2017 Hospital Encounter Division of Henry Alfaro Gastroenterology in , M.B.B.S. [place], [place] [address] [facility] [address] [place] [address] [phone] Social History Tobacco Use Types Packs/Day Years [...] Visit Orthopedic Surgery Deon Herrera M.D. [address] [place] [address] [phone] (Wo rk) Scheduled Orders Name Type Priority [...]
--- OUTSIDE RECORDS SUMMARY | 2022-01-21 08:55 | XMS_ITS | Encounter Summary ---
:1955 Author Organization [facility] Address [address] [place] [address] Care Team Providers Name Role Phone Unavailable Primary Care Provider Unavailable Reason for Visit Reason Comments Communication Encounter Details Date Type Department Care Team Description 05/09/2017 Clinical Communication Department of [facility] Guido Man, Communication Medicine in [place], [place] [address], [address] [place] [address] 310 [place] [address] [phone] Social History Tobacco Use Types Packs/Day Years [...] do you attend tenriism or Never 2021 orthodoxy services? Do you [...] her back with a day and time. ECT/PRODUCTION MANAGER IMAGING Telephone Encounter - Jossie Morris - 05/09/2017 4:55 PM CST Is having problems with several areas that Dr. Man has been seeing her for, would like to be seen before he leaves ECT/PRODUCTION MANAGER IMAGING documented in this encounter Plan of Treatment Upcoming Encounters Date Type Specialty Care Team Description 02/04/2022 Office Visit Orthopedic Surgery Deon Herrera M.D. [address] [place], [place] [phone] (Wo rk) documented as of this encounter Visit Diagnoses Not on filedocumented in this encounter Additional Health Concerns Assessment Noted Time PHQ-9 Depression Total Score: 5 04/29/2016 10:10 AM CS T documented as of this encounter
--- OUTSIDE RECORDS SUMMARY | 2022-01-21 08:55 | XMS_ITS | Encounter Summary ---
:1955 Author Organization [facility] Address [address] [place] [address] Care Team Providers Name Role Phone Unavailable Primary Care Provider Unavailable Reason for Visit Reason Comments Knee Pain right Appointment Request (Routine) - Closed Specialty Diagnoses / Referred By Contact Referred To Contact Procedures Physical Medicine and Vivek Man, Rehabilitation [place] [address] [place] [address] [address] [place] [address] Referral ID Status Reason Start Date Expiration Date Visits Requ ested Visits Authorized [id number] Closed 01/28/2017 07/27/2017 1 1 Encounter Details Date Type Department Care Team Description 04/28/2017 Office Visit Department of Physical Vivek Man, Pain Knee Right Medicine and [place] (Primary Dx) Rehabilitation in [address] [place] [address] [address] [place] [address] [facility] [phone] Social History Tobacco Use Types Packs/Day Years [...] do you attend religion or Never 2021 oriental orthodox services? Do [...] Comments Blood Pressure 122/80 04/28/2017 2:36 PM FORCE VARIATION EQUIPMENT TENDER Pulse - - Temperature - - Respiratory Rate - - Oxygen Saturation - - Inhaled Oxygen Concentration - - Weight 112 kg (246 lb 9.4 oz) 04/28/2017 2:35 PM FORCE VARIATION EQUIPMENT TENDER Height - - Body Mass Index 35.7 04/15/2017 3:09 PM FORCE VARIATION EQUIPMENT TENDER documented in this encounter Progress Notes Vivek [...] time greater than 15 minutes. Job ID: [id number] E VARIATION EQUIPMENT TENDER documented in this encounter Plan of Treatment Upcoming Encounters Date Type Specialty Care Team Description 02/04/2022 Office Visit Orthopedic Surgery Deon Herrera M.D. [address] [place], [place] [phone] (Wo rk) documented as of this encounter Results DX Knee Right 3 Views (04/28/2017 4:15 PM FORCE VARIATION EQUIPMENT TENDER) Anatomical Region Laterality Modality Lower Extremity, Knee Right Computed Radiograp hy Specimen (Source) Anatomical Collection Method Collection Time Re ceived Time Location / / Volume Laterality 04/29/2017 8:32 AM FORCE VARIATION EQUIPMENT TENDER Impressions 04/29/2017 8:33 AM FORCE VARIATION EQUIPMENT TENDER IMPRESSION: No appreciable acute osseous abnormality of the bilateral knees. Postop changes bilateral total knee arth roplasties. Narrative 04/29/2017 8:33 AM FORCE VARIATION EQUIPMENT TENDER EXAM: DX KNEE RIGHT 3 VIEWS COMPARISON: [...]
--- OUTSIDE RECORDS SUMMARY | 2022-01-21 08:55 | XMS_ITS | Encounter Summary ---
:1955 Author Organization [facility] Address [address] [place] [address] Care Team Providers Name Role Phone Unavailable Primary Care Provider Unavailable Encounter Details Date Type Department Care Team Description 04/28/2017 Hospital Encounter Department of Vivek Man Pai n Knee Right Radiology in [place], [place] [address], [address] [place] [address] [phone] Social History Tobacco Use Types Packs/Day Years [...] do you attend voodoo or Never 2021 anabaptism services? Do you [...] Surgery Deon Herrera M.D. [address] [place], [place] [phone] (Wo rk) documented as of this encounter Procedures Procedure Name Priority Date/Time Associated Comments Diagnosis DX KNEE RIGHT 3 RAD - Routine 04/28/2017 4:15 Pain Knee Right Resul ts for this VIEWS (most inpatients PM OFFICE SUPPORT CLERK procedure a re in and all the results outpatients) section. documented in this encounter Results DX Knee Right 3 Views (04/28/2017 4:15 PM OFFICE SUPPORT CLERK) Anatomical Region Laterality Modality Lower Extremity, Knee Right Computed Radiograp hy Specimen (Source) Anatomical Collection Method Collection Time Re ceived Time Location / / Volume Laterality 04/29/2017 8:32 AM OFFICE SUPPORT CLERK Impressions 04/29/2017 8:33 AM OFFICE SUPPORT CLERK IMPRESSION: No appreciable acute osseous abnormality of the bilateral knees. Postop changes bilateral total knee arth roplasties. Narrative 04/29/2017 8:33 AM OFFICE SUPPORT CLERK EXAM: DX KNEE RIGHT 3 VIEWS COMPARISON: [...]
--- OUTSIDE RECORDS SUMMARY | 2022-01-21 08:55 | XMS_ITS | Encounter Summary ---
:1955 Author Organization [facility] Address [address] [place] [address] Care Team Providers Name Role Phone Unavailable Primary Care Provider Unavailable Reason for Visit Reason Comments Follow-up Appointment Request (Routine) - Closed Specialty Diagnoses / Referred By Contact Referred To Contact Procedures Physical Medicine and Vivek Man, Rehabilitation M.D. [address], [address] [place] [address] Referral ID Status Reason Start Date Expiration Date Visits Requ ested Visits Authorized [id number] Closed 05/28/2017 11/24/2017 1 1 Encounter Details Date Type Department Care Team Description 06/19/2017 Office Visit Department of Physical Vivek Man, Tendonitis Achilles Right (Primary Dx); Medicine and M.D. Pain Neck; Rehabilitation in [address] [facility], Spond ylosis Cervical Without Myelopathy [place], [place] [address] [place] [address] [phone] Social History Tobacco Use Types Packs/Day Years [...] do you attend buddhist or Never 2021 anabaptist services? Do you [...] Body Mass Index 34.62 04/15/2017 3:09 PM BONBON DIPPER documented in this encounter Progress Notes Vivek [...] discuss that I will be transitioning from [place] to the practice in [place]. She understands this and I will see her in [place] after physical therapy. She also knows to contact prior to that time if she notes any worsening or worrisome symptoms which we went over in detail today. Ms. Ha voiced agreement and understanding with this plan. Total time 30 minutes, counseling, coordination of care time greater than 15 minutes. Job ID: [id number] documented in this encounter Plan of Treatment Upcoming Encounters Date Type Specialty Care Team Description 02/04/2022 Office Visit Orthopedic Surgery Deon Herrera M.D. [address] [place] [phone] (Wo rk) documented as of this encounter Visit Diagnoses Diagnosis Tendonitis Achilles Right - Primary Pain Neck Spondylosis Cervical Without Myelopathy documented in this encounter Additional Health Concerns Assessment Noted Time PHQ-9 Depression Total Score: 5 04/29/2016 10:10 AM CS T documented as of this encounter
--- OUTSIDE RECORDS SUMMARY | 2022-01-21 08:56 | XMS_ITS | Encounter Summary ---
:1955 Author Organization [facility] Address [address] [place] [address] Care Team Providers Name Role Phone Unavailable Primary Care Provider Unavailable Encounter Details Date Type Department Care Team Description 12/26/2016 Hospital Encounter HX [facility] NEUROLOGY Meghna Maradiaga M.D., M.P.H. [address] [place] [address] (Wo rk) Social History Tobacco [...] you attend oriental orthodox or Never 2021 temple services? Do you [...] M.D., M.P.H. - 12/26/2016 10:28 AM CDT [id number] HISTORY OF PRESENT ILLNESS A 61-year-old woman [...] MD MPH On: 01/02/2017 09:07 AM Source: [facility] MHSDOLBEYNONRADSYS Document Id: [id number] documented in this encounter Miscellaneous Notes Miscellaneous - Maxine Maradiaga M.D., M.P.H. - 12/26/2016 12:14 PM CDT Ambulatory Patient Summary [address] [id number] Visit Information Name: YAZ CARO [facility] Number: [phone] Current Date: 12/26/2016 12:14:10 Physicians [...] a day (at bedtime) New Routed to [address] [id number] hydrochlorothiazide-quinapril (hydrochlorothiazide -quinapril 12.5mg- 20mg) 1 Tablet(s), [...] if you dont have one. Go to [email or web address] and click on Create Your Account. Then, follow the directions to complete the online form. Youll be asked for your [facility] number which you can find at the top of this document. Your Goals/Additional instructions: Source: [facility] POWERCHART Document Id: [id number] Miscellaneous - Maxine Maradiaga M.D., M.P.H. - 12/26/2016 12:14 PM CDT Ambulatory Discharge Medication List [address] [id number] Visit Information Name: YAZ CARO [facility] Number: [phone] Current Date: 12/26/2016 12:14:09 Attending Provider: LANI MARADIAGA MD MPH Primary Care Provider: PCP, YAZ SLONA has been given the following list of [...] a day (at bedtime) New Routed to [address] [id number] hydrochlorothiazide-quinapril (hydrochlorothiazide -quinapril 12.5mg- 20mg) 1 Tablet(s), [...] MPH Signed On:26-DEC-2016 12:14:05 Additional Information: Source: [facility] POWERCHART Document Id: [id number] Miscellaneous - Analy Jung L.PCandyNCandy - 12/26/2016 [...] Internal electrodes/wires : No Neurostimulator/Biostimulator : No [place] devi catheter : No ANALY JUNG LPN [...] No Penile Implant : No Breast Tissue Mattress Specialist/Implant : No : No (document number of weeks in Comment) : No Surgery : No ANALY JUNG LPN - 12/26/2016 11:59 CDT Claustrophobic : No Pain/Unable to Lay Still : No Metal In or Removed from Eyes Ever : No Form Completed : Yes Education Materials Provided : No ANALY JUNG LPN 12/26/2016 11:59 CDT Source: [employer] Document Id: [id number] CDT!49 Miscellaneous - Analy Jung L.P.N. - 12/26/2016 11:04 AM CDT CPAP From: ANALY JUNG LPN ([facility] Nurse) Sent: 12/26/2016 11:04:00 CDT Subject: CPAP CPAP machine is from [facility] [phone]. Source: [employer] Document Id: [id number] Miscellbernard - Analy Jung L.PLiss - 12/26/2016 10:42 AM CDT [place] Sleepiness Scale [place] Sleepiness Scale Entered On: 12/26/2016 10:44 CDT Performed On: 12/26/2016 10:42 CDT by ANALY JUNG LPN [place] Sleepiness Scale [place] sitting and reading : Moderate chance of dozing [place] watching TV : Slight chance of dozing [place] sitting in public : Slight chance of dozing [place] passenger in car : High chance of dozing [place] in a car stopped in traffic : Slight chance of dozing [place] Lying down to rest : Moderate chance of dozing [place] sitting and talking : Slight chance of dozing [place] sitting quietly after lunch : Slight chance of dozing [place] Total Score : 12 ANALY JUNG LPN - 12/26/2016 10:42 CDT Source: [employer] Document Id: [id number] CDT!11 Miscellaneous - Analy Jung L.PLiss - 12/26/2016 10:40 AM CDT Adult Golf Course Patroller Intake/History Adult Golf Course Patroller Intake/History Entered On: 12/26/2016 10:42 CDT Performed [...] Information Given By : Patient Languages : Belgian Is Patient Female and 13-50 no hysterectomy [...] JUNG LPN - 12/26/2016 10:40 CDT Source: [facility] POWERCHART Document Id: [id number] CDT!28 documented in this encounter Plan of Treatment Upcoming Encounters Date Type Specialty Care Team Description 02/04/2022 Office Visit Orthopedic Surgery Deon Herrera M.D. [address] [place], [place] [phone] (Wo rk) documented as of this encounter Visit Diagnoses Not on filedocumented in this encounter Additional Health Concerns Assessment Noted Time PHQ-9 Depression Total Score: 5 04/29/2016 10:10 AM CS T documented as of this encounter
--- OUTSIDE RECORDS SUMMARY | 2022-01-21 08:56 | XMS_ITS | Encounter Summary ---
:[address] [facility] Address [address] [place] [address] Care Team Providers Name Role Phone Unavailable Primary Care Provider Unavailable Encounter Details Date Type Department Care Team Description 01/14/2017 Orders Only Department of Neurology in Meghna Valdez M.D., [place], [place] M.P.H. [address] [place] [address] [place], [place] [phone] (Wo rk) Social History Tobacco Use [...] Orthopedic Surgery Deon Herrera M.D. [address] [place], [place] [phone] (Wo rk) documented as of this encounter Visit Diagnoses Diagnosis Hypersomnia documented in this encounter Additional Health Concerns Assessment Noted Time PHQ-9 Depression Total Score: 5 04/29/2016 10:10 AM CS T documented as of this encounter
--- OUTSIDE RECORDS SUMMARY | 2022-01-21 08:56 | XMS_ITS | Encounter Summary ---
:1955 Author Organization [facility] Address [address] [place] [address] Care Team Providers Name Role Phone Unavailable Primary Care Provider Unavailable Reason for Visit Reason Comments Med Refill Encounter Details Date Type Department Care Team Description 03/28/2017 Refill Department of Physical Medicine Vivek Man M.D. Med Refill and Rehabilitation in [address] [place], [place] [address] [address] [place], [place] [phone] [place] [phone] Social History Tobacco Use Types Packs/Day Years [...] do you attend religious or Never 2021 pentecostalism services? Do you [...] Orthopedic Surgery Deon Herrera M.D. [address] [place] [phone] (Wo rk) documented as of this encounter Visit Diagnoses Not on filedocumented in this encounter Additional Health Concerns Assessment Noted Time PHQ-9 Depression Total Score: 5 04/29/2016 10:10 AM CS T documented as of this encounter
--- OUTSIDE RECORDS SUMMARY | 2022-01-21 08:56 | XMS_ITS | Encounter Summary ---
:1955 Author Organization [facility] Address [address] [place] [address] Care Team Providers Name Role Phone Unavailable Primary Care Provider Unavailable Encounter Details Date Type Department Care Team Description 01/09/2017 Abstract Department of Family Medicine, Provider, Historical [facility], in [place], [place] [address] [place] [address] [facility] [phone] Social History Tobacco Use Types Packs/Day Years [...] do you attend zoroastrian or Never 2021 hoahaoism services? Do you [...] Orthopedic Surgery Deon Herrera M.D. [address] [place] [phone] (Wo rk) documented as of this encounter Visit Diagnoses Not on filedocumented in this encounter Additional Health Concerns Assessment Noted Time PHQ-9 Depression Total Score: 5 04/29/2016 10:10 AM CS T documented as of this encounter
--- OUTSIDE RECORDS SUMMARY | 2022-01-21 08:56 | XMS_ITS | Encounter Summary ---
:1955 Author Organization [facility] Address [address] [place] [address] Care Team Providers Name Role Phone Unavailable Primary Care Provider Unavailable Reason for Visit Reason Comments Sleeping Problem CPAP download - sleeping bet ter. Is more tired during the day. MRI results Appointment Request (Routine) - Closed Specialty Diagnoses / Procedures Referred By Contact Refer red To Contact Neurology Referral ID Status Reason Start Date Expiration Date Visits Requ ested Visits Authorized [id number] Closed 01/20/2017 07/19/2017 1 1 Encounter Details Date Type Department Care Team Description 01/30/2017 Office Visit Department of Meghna Valdez, Apnea Slee p Obstructive (Primary Dx); Neurology in [place] Roberto.Joseph., M.P.H. Insomnia; [place], [place] [address] Hypersomnia; [address] [place], [place] Diabetes Mellitus Type 2 Wit h Diabetic Neuropathy (HCC); [place] [address] Abnormal Magnetic Resonance Imaging [facility] n [phone] Social History Tobacco Use Types Packs/Day Years [...] you attend roman catholic or Never 2021 jain services? Do you [...] Comments Blood Pressure 124/70 01/30/2017 12:54 PM CHEF DE PARTIE Pulse 68 01/30/2017 12:54 PM CHEF DE PARTIE Temperature - - Respiratory Rate - - Oxygen Saturation - - Inhaled Oxygen Concentration - - Weight 118 kg (259 lb 7.7 oz) 01/30/2017 12:54 PM CHEF DE PARTIE Height - - Body Mass Index 38 [...] happy with all of these numbers. Her [place] sleepiness Score today is 11 and I [...] Cranial nerves 2-12 are normal including visual bowling and extraocular movement. Motor examination reveals normal bulk tone and strength throughout [place] rapid movements normal bilaterally. Impression: Obstructive sleep apnea, very well treated on her present settings and mask no changes. Insomnia and this appears to be resolved with the doxepin 3 mg HS. She might be having a little bit of hangover home from that sort going to cut the dose in half because her [place] sleepiness score is11 today. But in terms [...] 40 minutes 25 and counseling care coordination. DE PARTIE documented in this encounter Plan of Treatment Upcoming Encounters Date Type Specialty Care Team Description 02/04/2022 Office Visit Orthopedic Surgery Deon Herrera M.D. [address] [place], [place] [phone] (Wo rk) documented as [...]
--- OUTSIDE RECORDS SUMMARY | 2022-01-21 08:56 | XMS_ITS | Encounter Summary ---
:1955 Author Organization [facility] Address [address] [place] [address] Care Team Providers Name Role Phone Unavailable [...] do you attend samaritan or Never 2021 buddhism services? Do you belong to any clubs [...] Team Description 02/04/2022 Office Visit Orthopedic Surgery Lonny Herrera M.D. [address] [place], [place] [phone] (Wo rk) documented as of this encounter Procedures Procedure Name Priority Date/Time Associated Diagnosis Comme nts PHYSICAL MEDICINE Routine 12/17/2016 11:40 AM Res ults for this AND REHAB IMAGE CDT procedure lonny hutton in EXAM the results section. documented in [...]
--- OUTSIDE RECORDS SUMMARY | 2022-01-21 08:56 | XMS_ITS | Encounter Summary ---
:1955 Author Organization [facility] Address [address] [place] [address] Care Team Providers Name Role Phone Unavailable Primary Care Provider Unavailable Encounter Details Date Type Department Care Team Description 01/30/2017 Orders Only Department of Neurology Meghna Valdez, Apnea Sleep Obstructive (Primary Dx); in [facility] karthik Pruett, M.P.H. Hypersomnia; [address] Insomnia; [place], [place] Diabetes [facility] Type 2 With Diabetic Neuropathy (HCC); [phone] Abnormal Magnetic Resonance Imaging Brai n [phone] Social History Tobacco Use Types Packs/Day Years [...] Visit Orthopedic Surgery Deon Herrera M.D. [address] [place] [phone] (Wo rk) documented as of [...]
--- OUTSIDE RECORDS SUMMARY | 2022-01-21 08:56 | XMS_ITS | Encounter Summary ---
:1955 Author Organization [facility] Address [address] [place] [address] Care Team Providers Name Role Phone Unavailable Primary Care Provider Unavailable Reason for Visit Reason Onset Date Comments Referral 01/30/2017 Encounter Details Date Type Department Care Team Description 01/30/2017 Clinical Communication Department of Vivek Man Referral Occupational Medicine MJay in [address] [place] [phone] Social History Tobacco Use Types Packs/Day Years [...] do you attend restoration or Never 2021 christianity services? Do you [...] Guthrie - 02/12/2017 11:41 AM CST Thanks. IVING DOCK CHECKER Telephone Encounter - Wilda Lerner L.P.NCandy - 01/30/2017 9:56 AM CST Waiting on prior authorization. IVING DOCK CHECKER Telephone Encounter - Inez Guthrie - 01/30/2017 9:23 AM CST The patient called and said that she was supposed to have a referral for a MRI in [place] and they do not have anything. Can you please check on this she would like this done SHINE IVING DOCK CHECKER documented in this encounter Plan of Treatment Upcoming Encounters Date Type Specialty Care Team Description 02/04/2022 Office Visit Orthopedic Surgery Deon Herrera M.D. [address] [place], [place] [phone] (Wo rk) documented as of this encounter Visit Diagnoses Not on filedocumented in this encounter Additional Health Concerns Assessment Noted Time PHQ-9 Depression Total Score: 5 04/29/2016 10:10 AM CS T documented as of this encounter
--- OUTSIDE RECORDS SUMMARY | 2022-01-21 08:56 | XMS_ITS | Encounter Summary ---
:1955 Author Organization [facility] Address [address] [place] [address] Care Team Providers Name Role Phone Unavailable Primary Care Provider Unavailable Reason for Visit Reason Comments Communication medication Encounter Details Date Type Department Care Team Description 04/03/2017 Clinical Communication Department of Meghna Valdez Family MedicineAdriana M.D., (medication ) [facility], M.P.H. [address] [phone] Social History Tobacco Use Types Packs/Day Years [...] do you attend episcopalian or Never 2021 rastafari services? Do you [...] anything else she can take? Call her. RGY PHYSICIAN documented in this encounter Plan of Treatment Upcoming Encounters Date Type Specialty Care Team Description 02/04/2022 Office Visit Orthopedic Surgery Deon Herrera M.D. [address] [place] [phone] (Wo rk) documented as of this encounter Visit Diagnoses Not on filedocumented in this encounter Additional Health Concerns Assessment Noted Time PHQ-9 Depression Total Score: 5 04/29/2016 10:10 AM ANATOLIY T documented as of this encounter
--- OUTSIDE RECORDS SUMMARY | 2022-01-21 08:56 | XMS_ITS | Encounter Summary ---
:1955 Author Organization [facility] Address [address] [place] [address] Care Team Providers Name Role Phone Unavailable Primary Care Provider Unavailable Encounter Details Date Type Department Care Team Description 12/30/2016 Hospital Encounter HX [facility] MRI Meghna Valdez M .D., M.P.H. [address] [place], [place] [phone] (Wo rk) Social History [...] do you attend taoist or Never 2021 episcopal services? Do you [...] documented as of this encounter Procedure Notes Cinthia Ruelas R.T.(R), R.TCandy(R)(MR) - 12/30/2016 2:07 PM CDT Peripheral IV Peripheral IV Entered On: 12/30/2016 14:07 CDT Performed On: 12/30/2016 14:07 CDT by CINTHIA RUELAS RT (R) RT (R)(MR) Peripheral IV Peripheral IV Assess/Intervention Grid Peripheral IV #1 IV Activity : Start Number of Attempts : 2 Date of Insertion : 12/30/2016 CDT Discontinued Date : 12/30/2016 CDT IV Site : Antecubital Laterality : Right Catheter Size : 22 Catheter Type : Over the needle Site Condition : No complications CINTHIA RUELAS RT (R) RT (R)(MR) - 12/30/2016 14:07 CDT Source: [facility] [employer] Document Id: [id number] CDT!13 documented in this encounter Plan of Treatment Upcoming Encounters Date Type Specialty Care Team Description 02/04/2022 Office Visit Orthopedic Surgery Deon Herrera M.D. [address] [place] [phone] (Wo rk) documented as of [...] auditory canals are unremarkable in appearance. Anika ManriqueT.(R)(CT), R.T.(R), R.T.(R)(MR) I MG MRI PROCEDURES documented in this encounter Visit Diagnoses Not on filedocumented in this encounter Additional Health Concerns Assessment Noted Time PHQ-9 Depression Total Score: 5 04/29/2016 10:10 AM ANATOLIY T documented as of this encounter
--- OUTSIDE RECORDS SUMMARY | 2022-01-21 08:56 | XMS_ITS | Encounter Summary ---
:1955 Author Organization [facility] Address [address] [place] [address] Care Team Providers Name Role Phone Unavailable Primary Care Provider Unavailable Encounter Details Date Type Department Care Team Description 02/20/2017 Clinical Communication Department of Sleep Meghna Valdez, Medicine in Thee Farr M.D., M. P.H. [place] [address] [place] [address] [place] [phone] Social History Tobacco Use Types Packs/Day Years [...] do you attend restorationism or Never 2021 synagogue services? Do you [...] Valdez M.D., M.P.H. - 02/20/2017 11:32 AM CARAMEL CUTTER HAND ----- Message from Iona Coker sent at 02/20/2017 10:17 AM CARAMEL CUTTER HAND ----- Regarding: Referral Closed- Burton Adames Thank you for your referral to [facility]. We regret to inform you that our [...] or concerns, please call us at or [phone]. You may also reply to this message if you have questions. Sincerely, [facility] Online Services for Referring Physicians Appointment Office MEL CUTTER HAND documented in this encounter Plan of Treatment Upcoming Encounters Date Type Specialty Care Team Description 02/04/2022 Office Visit Orthopedic Surgery Deon Herrera M.D. [address] [place], [place] [phone] (Wo rk) documented as of this encounter Visit Diagnoses Not on filedocumented in this encounter Additional Health Concerns Assessment Noted Time PHQ-9 Depression Total Score: 5 04/29/2016 10:10 AM CS T documented as of this encounter
--- OUTSIDE RECORDS SUMMARY | 2022-01-21 08:56 | XMS_ITS | Encounter Summary ---
:1955 Author Organization [facility] Address [address] [place] [address] Care Team Providers Name Role Phone Unavailable Primary Care Provider Unavailable Reason for Referral Behavioral Health (Routine) - Closed Specialty Diagnoses / Procedures Referred By Contact Refer red To Contact Psychiatry / Psychiatry Diagnoses Abnormal Magnetic Resonance Imaging Brain Meghna Valdez, [facility] Flynn, M.P.H. 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 P.H. Resonance Imaging Brain [place] [address] [place] [address] (Primary Dx) [address] [place], [place] [phone] Social History Tobacco Use Types Packs/Day Years [...] do you attend shinto or Never 2021 mormonism services? Do you belong to any clubs or Yes 12/12/2021 organizations such as shinto groups, unions, [employer] or athletic groups, or school groups? How [...] Orthopedic Surgery Deon Herrera M.D. [address] [place], [place] [phone] (Wo rk) documented as of this encounter Visit Diagnoses Diagnosis Abnormal Magnetic Resonance Imaging Brai n - Primary documented in this encounter Additional Health Concerns Assessment Noted Time PHQ-9 Depression Total Score: 5 04/29/2016 10:10 AM CS T documented as of this encounter
--- OUTSIDE RECORDS SUMMARY | 2022-01-21 08:56 | XMS_ITS | Encounter Summary ---
:1955 Author Organization [facility] Address [address] [place] [address] Care Team Providers Name Role Phone Unavailable Primary Care Provider Unavailable Encounter Details Date Type Department Care Team Description 12/30/2016 Hospital Encounter HX [facility] Meghna Valdez M .D., M.P.H. [address] [place], [place] [phone] (Wo rk) Social History [...] you attend jehovah's witness or Never 2021 druze services? Do you [...] Orthopedic Surgery Deon Herrera M.D. [address] [place] [phone] (Wo rk) documented as of this [...] 1.10 MGDL HXeGFR (MDRD) >60 >=60 POWERCHART [id number] eGFR >60 >=60 POWERCHART Black/ [id number] Beninese Specimen (Source) Anatomical Collection Method Collection Time [...]
--- OUTSIDE RECORDS SUMMARY | 2022-01-21 08:56 | XMS_ITS | Encounter Summary ---
:1955 Author Organization [facility] Address [address] [place] [address] Care Team Providers Name Role Phone Unavailable Primary Care Provider Unavailable Reason for Visit Reason Comments Med Refill Encounter Details Date Type Department Care Team Description 02/18/2017 Refill Department of Neurology in Meghna Valdez M.D., Med Refill [place], [place] M.P.H. [address] [place] [address] [address] [place] [address] [place] [phone] (Wo rk) Social History Tobacco Use Types [...] do you attend catholic or Never 2021 anglican services? Do you [...] Visit Orthopedic Surgery Deon Herrera M.D. [address] [place] [phone] (Wo rk) documented as of this encounter Visit Diagnoses Not on filedocumented in this encounter Additional Health Concerns Assessment Noted Time PHQ-9 Depression Total Score: 5 04/29/2016 10:10 AM CS T documented as of this encounter
--- OUTSIDE RECORDS SUMMARY | 2022-01-21 08:56 | XMS_ITS | Encounter Summary ---
:1955 Author Organization [facility] Address [address] [place] [address] Care Team Providers Name Role Phone Unavailable Primary Care Provider Unavailable Encounter Details Date Type Department Care Team Description 02/19/2017 Orders Only Department of Neurology in Meghna Valdez M.D.[place], [place] M.P.H. [address] [facility] [address] [place] [address] [place], [place] [phone] (Wo rk) Social History Tobacco Use [...] do you attend anabaptism or Never 2021 mosque services? Do you [...] Orthopedic Surgery Deon Herrera M.D. [address] [place], [place] [phone] (Wo rk) documented as of this encounter Visit Diagnoses Not on filedocumented in this encounter Additional Health Concerns Assessment Noted Time PHQ-9 Depression Total Score: 5 04/29/2016 10:10 AM CS T documented as of this encounter
--- OUTSIDE RECORDS SUMMARY | 2022-01-21 08:56 | XMS_ITS | Encounter Summary ---
:1955 Author Organization [facility] Address [address] [place] [address] Care Team Providers Name Role Phone Unavailable Primary Care Provider Unavailable Reason for Visit Reason Comments Follow-up hip pain Encounter Details Date Type Department Care Team Description 01/28/2017 Office Visit Department of Physical Vivke Man, Pain Low Back (Primary Dx); Medicine and M.D. Spondylosis Lumbar Without Myelopathy; Rehabilitation in [address] [facility], Pain Hip Right; [place], [place] [address] Bursitis Trochanteric Right [address] [place] [phone] Social History Tobacco Use Types Packs/Day [...] do you attend yarsani or Never 2021 worship services? Do you [...] Comments Blood Pressure 124/82 01/28/2017 2:54 PM CIVIL DESIGNER Pulse - - Temperature - - Respiratory Rate - - Oxygen Saturation - - Inhaled Oxygen Concentration - - Weight 117 kg (257 lb 9.7 oz) 01/28/2017 2:54 PM CIVIL DESIGNER Height - - Body Mass Index 37.72 [...] of her symptoms. PLAN: 1. With Ms. Adames'flor persistent symptoms despite a variety of different [...] time greater than 15 minutes. Job ID: [id number] L DESIGNER documented in this encounter Plan of Treatment Upcoming Encounters Date Type Specialty Care Team Description 02/04/2022 Office Visit Orthopedic Surgery Deon Herrera M.D. [address] [place], [place] [phone] (Wo rk) documented as of this encounter Visit Diagnoses Diagnosis Pain Low Back Unspecified - Primary Spondylosis Lumbar Without Myelopathy Pain Hip Right Bursitis Trochanteric Right documented in this encounter Additional Health Concerns Assessment Noted Time PHQ-9 Depression Total Score: 5 04/29/2016 10:10 AM CS T documented as of this encounter
--- OUTSIDE RECORDS SUMMARY | 2022-01-21 08:56 | XMS_ITS | Encounter Summary ---
:1955 Author Organization [facility] Address [address] [place] [address] Care Team Providers Name Role Phone Unavailable Primary Care Provider Unavailable Encounter Details Date Type Department Care Team Description 12/17/2016 Hospital Encounter HX [facility] Guido Man M.D. [address] [place] [address], [address] [place] [address] (Wo rk) Social History [...] do you attend scientology or Never 2021 yazdanism services? Do you [...] Man M.D. - 12/17/2016 10:52 AM CDT [id number] CHIEF COMPLAINT/REASON FOR VISIT Right lateral hip [...] MAN MD On: 12/19/2016 02:19 PM Source: [facility] MHSDOLBEYNONRADSYS Document Id: [id number] documented in this encounter Procedure Notes Yobani [...] MAN MD On: 12/19/2016 02:19 PM Source: [facility] MHSDOLBEYNONRADSYS Document Id: [id number] documented in this encounter Miscellaneous Notes Miscellaneous [...] Patient ( ) ( ) Call for Counter Help ( ) Follow up on Results ( ) Other: PROVIDER: ( ) Call Physician ( ) Call Pharmacist ( ) Call Lab ( ) Other: Special Instructions: Comments: Source: [facility] POWERCHART Document Id: [id number] Miscellaneous - Yobani Man M.D. - 12/17/2016 12:27 PM CDT Ambulatory Patient Summary [facility] [address] [place] [id number] Visit Information Name: YAZ CARO [facility] Number: [id number] Current Date: 12/17/2016 12:27:43 Physicians [...] Youll be asked for your [facility] number which you can find at the top of this document. Your Goals/Additional instructions: Source: [facility] POWERCHART Document Id: [id number] Miscellaneous - Yobani Man M.D. - 12/17/2016 12:27 PM CDT Ambulatory Discharge Medication List [address] [id number] Visit Information Name: YAZ CARO [facility] Number: [id number] Current Date: 12/17/2016 12:27:42 Attending [...] MD Signed On:17-DEC-2016 12:27:22 Additional Information: Source: [facility] POWERCHART Document Id: [id number] Miscellaneous - Kate Giraldo L.P.N. - 12/17/2016 11:12 AM CDT Adult Bombsight Specialist Intake/History Adult Bombsight Specialist Intake/History Entered On: 12/17/2016 11:14 CDT Performed [...] Information Given By : Patient Languages : Angolan Is Patient Female and 13-50 no hysterectomy [...] GIRALDO LPN - 12/17/2016 11:12 CDT Source: [facility] POWERCHART Document Id: [id number] CDT!25 documented in this encounter Plan of Treatment Upcoming Encounters Date Type Specialty Care Team Description 02/04/2022 Office Visit Orthopedic Surgery Deon Herrera M.D. [address] [place] [phone] (Wo rk) documented as of this encounter Visit Diagnoses Not on filedocumented in this encounter Additional Health Concerns Assessment Noted Time PHQ-9 Depression Total Score: 5 04/29/2016 10:10 AM CS T documented as of this encounter
--- OUTSIDE RECORDS SUMMARY | 2022-01-21 08:57 | XMS_ITS | Encounter Summary ---
:1955 Author Organization [facility] Address [address] [place] [address] Care Team Providers Name Role Phone Unavailable Primary Care Provider Unavailable Encounter Details Date Type Department Care Team Description 12/18/2015 Hospital Encounter HX RST PRC JANINAFEKaye Barbosa, ADULT DRIVEMATIC MACHINE OPERATOR, STONE CARRIAGE OPERATOR, R.N. [address] [facility] [address] PRATHER, Evaristo [address] [place], [place] [phone] (Wo rk) Social History Tobacco Use Types [...] do you attend hindu or Never 2021 mormon services? Do you [...] Orthopedic Surgery Deon Herrera M.D. [address] [place], [place] [phone] (Wo rk) documented as of this encounter Visit Diagnoses Not on filedocumented in this encounter Additional Health Concerns Assessment Noted Time PHQ-9 Depression Total Score: 4 08/10/2015 9:06 AM CDT documented as of this encounter
--- OUTSIDE RECORDS SUMMARY | 2022-01-21 08:57 | XMS_ITS | Encounter Summary ---
:1955 Author Organization [facility] Address [address] [place] [address] Care Team Providers Name Role Phone Unavailable Primary Care Provider Unavailable Encounter Details Date Type Department Care Team Description 11/07/2016 Hospital Encounter HX [facility] NEUROLOGY Meghna Valdez M.D., M.P.H. [address] [place] [phone] (Wo rk) Social History Tobacco [...] do you attend yarsanism or Never 2021 denominational services? Do you [...] Progress Notes Lani Valdez M.D., M.P.H. - 11/07/2016 1:10 PM CDT [id number] CHIEF COMPLAINT/REASON FOR VISIT Followup on insomnia [...] machine and she does not bring the [employer] machine in today. I did have her [...] weeks. Totaltime together was 40 minutes. Lani Valdez M.D./veena Electronically Signed By: LANI VALDEZ MD MPH On: 11/15/2016 03:00 PM Source: [facility] MHSDOLBEYNONRADSYS Document Id: [id number] documented in this encounter Plan of Treatment Upcoming Encounters Date Type Specialty Care Team Description 02/04/2022 Office Visit Orthopedic Surgery Deon Herrera M.D. [address] [place], [place] [phone] ([facility]) documented as of this encounter Visit Diagnoses Not on filedocumented in this encounter Additional Health Concerns Assessment Noted Time PHQ-9 Depression Total Score: 5 04/29/2016 10:10 AM CS T documented as of this encounter
--- OUTSIDE RECORDS SUMMARY | 2022-01-21 08:57 | XMS_ITS | Encounter Summary ---
:1955 Author Organization [facility] Address [address] [place] [address] Care Team Providers Name Role Phone Unavailable [...] do you attend amish or Never 2021 baptist services? Do you [...] M.D., M.P.H. - 08/29/2016 1:01 PM CDT [id number] CHIEF COMPLAINT/REASON FOR VISIT Peripheral neuropathy. HISTORY OF PRESENT ILLNESS Yaz is a 61-year-old woman whom I have seen in the past and, on June 27, I wrote a note detailing her neuropathy and her evaluation of same at [facility]. She had evidence of an axonalpolyneuropathy. She has also diastolic dysfunction, cervical stenosis, severe small-fiber neuropathy, obstructive sleep apnea. She comes in today stating that her feet hurt her much more than he used to. She was in [place], somewhere near [place], visiting her mother who was injured and [...] day and 50 one time a day. [place]-3 fish oil. Aspirin 81 mg. Venlafaxine XR [...] is 22. She weighs 122.4 kg. Her [place] sleepiness score today was 9 but she [...] going on since she was gone to [facility] to see her mother. IMPRESSION/REPORT/PLAN 1. The [...] MD MPH On: 08/30/2016 02:51 PM Source: [facility] MHSDOLBEYNONRADSYS Document Id: [id number] documented in this encounter Nursing Notes Maninder Mena CCandyM.ACandy - 08/30/2016 10:50 AM CDT Prior Authorizatin request for Lidocaine Prior Authorization request for Lidocaine completed through cover my meds, posadas [id number] time spent onrequest 20 minutes . Electronically Signed By: MANINDER MENA CMA On: 08/30/2016 10:50 AM Source: [facility] [employer]Auth[employer] Document Id: [id number] documented in this encounter Miscellaneous Notes Miscellaneous - Lani Valdez M.D., M.P.H. - 08/29/2016 4:12 PM CDT Ambulatory Patient Summary [address] [id number] Visit Information Name: YAZ ADAMES [facility] Number: [id number] Current Date: 08/29/2016 16:12:21 Physicians [...] if you dont have one. Go to [email or web address] and click on Create Your Account. Then, follow the directions to complete the online form. Youll be asked for your [facility] number which you can find at the top of this document. Your Goals/Additional instructions: Source: [facility] POWERCHART Document Id: [id number] Miscellaneous - Lani Valdez M.D., M.P.H. - 08/29/2016 4:12 PM CDT Ambulatory Discharge Medication List [address] [id number] Visit Information Name: YAZ ADAMES [facility] Number: [id number] Current Date: 08/29/2016 16:12:20 Attending [...] MPH Signed On:29-AUG-2016 16:12:18 Additional Information: Source: [facility] POWERCHART Document Id: [id number] Miscellaneous - Analy Jung L.P.N. - 08/29/2016 2:46 PM CDT [place] Sleepiness Scale [place] Sleepiness Scale Entered On: 08/29/2016 14:46 CDT Performed On: 08/29/2016 14:46 CDT by ANALY JUNG LPN [place] Sleepiness Scale [place] sitting and reading : Moderate chance of dozing [place] watching TV : No chance of dozing [place] sitting in public : Slight chance of dozing [place] passenger in car : Moderate chance of dozing [place] in a car stopped in traffic : Slight chance of dozing [place] Lying down to rest : No chance of dozing [place] sitting and talking : Slight chance of dozing [place] sitting quietly after lunch : Moderate chance of dozing [place] Total Score : 9 ANALY JUNG LPN - 08/29/2016 14:46 CDT Source: [facility] Document Id: [id number] CDT!11 Miscellaneous - Analy Jung L.P.N. - 08/29/2016 1:15 PM CDT Adult Environmental Restoration Planner Intake/History Adult Environmental Restoration Planner Intake/History Entered On: 08/29/2016 13:21 CDT Performed [...] Information Given By : Patient Languages : Vietnamese Is Patient Female and 13-50 no hysterectomy [...] JUNG LPN - 08/29/2016 13:15 CDT Source: [employer] Document Id: [id number] CDT!26 Miscellaneous - Analy Jung L.P.NCandy - 07/17/2016 10:03 AM CDT Custom Result Letter July 17, 2016 YAZ ADAMES [address] [place] [id number] Dear YAZ ADAMES, Dear Yaz, [facility] This is a reminder to please bring your CPAP machine or chip with you at the time of your appointment so a download of your information can be read. Thank you Sincerely, ANALY JUNG Electronic Signature Electronically Signed By: ANALY JUNG LPN On: July 17, 2016 This document has images extracted. Source: [employer] Document Id: [id number] GENCY VETERINARY TECHNICIAN documented in this encounter Plan of Treatment Upcoming Encounters Date Type Specialty Care Team Description 02/04/2022 Office Visit Orthopedic Surgery Deon Herrera M.D. [address] [place], [place] [phone] (Wo rk) documented as of this encounter Visit Diagnoses Not on filedocumented in this encounter Additional Health Concerns Assessment Noted Time PHQ-9 Depression Total Score: 5 04/29/2016 10:10 AM CS T documented as of this encounter
--- OUTSIDE RECORDS SUMMARY | 2022-01-21 08:57 | XMS_ITS | Encounter Summary ---
:1955 Author Organization [facility] Address [address] [place] [address] Care Team Providers Name Role Phone Unavailable Primary Care Provider Unavailable Encounter Details Date Type Department Care Team Description 06/27/2016 Hospital Encounter HX [facility] NEUROLOGY Meghna Valdez M.D., M.P.H. [address] [place] [address] (Wo rk) Social History Tobacco [...] do you attend restorationism or Never 2021 worship services? Do you [...] M.D., M.P.H. - 06/27/2016 12:31 PM CDT [id number] REFERRAL SOURCE Yobani Padilla MD CHIEF COMPLAINT/REASON [...] she has had multiple sleep studies at [facility], but unfortunately the only one we were able to obtain was a CPAP titration study and we were unable to obtain any diagnostic polysomnograms. The patient sees Dr. Dian Harris at [facility]. The patient states she has used melatonin [...] The patient has also been seen in [facility] by Dr. Argelia Barreto. It also looks as though she has seen Dr. Yobany Valerio at the [facility] for an EMG nerve [...] 9) plantar fasciitis, 10) sleep apnea, 11) early childhood specialist grogginess due to malfunctioning CPAP, 12) notable low back pain over L1, L2, DSPs, and left-sided nerve root exit. He recommended orthopedic evaluation for surgical recommendations. The patient has had restless legs syndrome for many years and she is not on a dopamine agonist. The patient is also seeing Dr. Yayo Rodriguez in the [facility] who concluded she had a chronicpain syndrome. [...] MD MPH On: 06/28/2016 04:28 PM Source: [facility] MHSDOLBEYNONRADSYS Document Id: [id number] documented in this encounter Miscellaneous Notes Miscellaneous - Samara Mishra, RCandyN. - 08/13/2016 12:49 PM CDT lyrica Document Contains Addenda Addendum by MONICA DE JESUS RN on August 13, 2016 15:43:19 CDT called into [facility] Addendum by YOBANI PADILLA MD on August 13, 2016 13:04:02 CDT From: YOBANI PADILLA [facility]; Sent: 08/13/2016 13:04:02 CDT Subject: RE: lyrica Please call. Thanks. Addendum by YOBANI PADILLA MD on August 13, 2016 13:03:56 CDT Submitted: Order:pregabalin (Lyrica 150 mg oral capsule) 1 cap(s) PO 2xDay Qty: 60 cap(s) Refills: 5 Substitutions Allowed Don't Print - called to pharmacy (Rx) Signed by YOBANI PADILLA MD 08/13/2016 13:03:48 From: SAMARA MISHRA RN ([facility] Medication Refill) To: YOBANI PADILLA MD; Sent: 08/13/2016 12:49:25 CDT Subject: lyrica Caller is: ( ) Patient ( ) Mother ( ) Father ( ) Spouse ( ) Daughter ( ) Son ( [facility] [phone]; fax [phone] ) Pharmacy ( ) Other: Provider: juan Pharmacy: Name of Medications Needing Refill: lyrica 150 mg Last Refill Date: 07/15/16 qty 60 Additional Information: 1 cap po BID.... Last / Future Appointment: 06/04/16; 08/28/16 Disposition: ( x ) Send to Pharmacy ( ) Call to Pharmacy ( ) Patient will hand picker Script ( ) Mail Rxto Patient Source: [facility] POWERCHART Document Id: [id number] Electronically signed by Priya [facility] Software Technical Lead [id number] at 08/27/2016 7:05 AM CDT Miscellaneous - Lani Valdez M.D., M.P.H. - 06/27/2016 4:10 PM CDT Ambulatory Patient Summary [address] [id number] Visit Information Name: YAZ CARO [facility] Number: [id number] Current Date: 06/27/2016 16:10:45 Physicians [...] a day (at bedtime) New Routed to [address] [id number] multivitamin (multivitamin) omega-3 polyunsaturated fatty acids (Fish [...] if you dont have one. Go to [email or web address] and click on Create Your Account. Then, follow the directions to complete the online form. Youll be asked for your [facility] number which you can find at the top of this document. Your Goals/Additional instructions: Source: [facility] POWERCHART Document Id: [id number] Miscellaneous - Lani Valdez M.D., M.P.H. - 06/27/2016 4:10 PM CDT Ambulatory Discharge Medication List [address] [id number] Visit Information Name: YAZ CARO [facility] Number: [id number] Current Date: 06/27/2016 16:10:44 Attending [...] a day (at bedtime) New Routed to [address] [id number] multivitamin (multivitamin) omega-3 polyunsaturated fatty acids (Fish [...] MPH Signed On:27-JUN-2016 16:10:42 Additional Information: Source: [facility] POWERCHART Document Id: [id number] Miscellaneous - Julienne Elmore L.PCandyNCandy - 06/27/2016 1:01 PM CDT [place] Sleepiness Scale [place] Sleepiness Scale Entered On: 06/27/2016 13:02 CDT Performed On: 06/27/2016 13:01 CDT by JULIENNE ELMORE LPN [place] Sleepiness Scale [place] sitting and reading : Slight chance of dozing [place] watching TV : No chance of dozing [place] sitting in public : No chance of dozing [place] passenger in car : Moderate chance of dozing [place] in a car stopped in traffic : Slight chance of dozing [place] Lying down to rest : Moderate chance of dozing [place] sitting and talking : Slight chance of dozing [place] sitting quietly after lunch : Slight chance of dozing [place] Total Score : 8 JULIENNE ELMORE LPN - 06/27/2016 13:01 CDT Source: [employer] Document Id: [id number] CDT!11 Miscellaneous - Julienne Elmore L.P.N. - 06/27/2016 12:56 PM CDT Adult School Speech Language Pathologist Intake/History Adult School Speech Language Pathologist Intake/History Entered On: 06/27/2016 12:59 CDT Performed [...] Communication Mode : Verbal, Written Languages : Prydeinig Is Patient Female and 13-50 no hysterectomy : No RAMÍREZ JULIENNE Lang LPN - 06/27/2016 12:56 CDT Subjective Pain Symptoms : No RAMÍREZ JULIENNE Lang LPN - 06/27/2016 12:56 CDT Dependent Habits Exposure to Tobacco Smoke : Other: never Smoking Status : Never smoker Tobacco 2A : No Tobacco Use/Currently Using : No Tobacco Use/Last 30 Days : No Tobacco Use/Last 12 months : No RAMÍREZ JULIENNE Lang LPN - 06/27/2016 12:56 CDT [facility] Document Id: [id number] CDT!26 documented in this encounter Plan of Treatment Upcoming Encounters Date Type Specialty Care Team Description 02/04/2022 Office Visit Orthopedic Surgery Deon Herrera M.D. [address] [place] [phone] (Wo rk) documented as of this encounter Visit Diagnoses Not on filedocumented in this encounter Additional Health Concerns Assessment Noted Time PHQ-9 Depression Total Score: 5 04/29/2016 10:10 AM CS T documented as of this encounter
--- OUTSIDE RECORDS SUMMARY | 2022-01-21 08:57 | XMS_ITS | Encounter Summary ---
:1955 Author Organization [facility] Address [address] [place] [address] Care Team Providers Name Role Phone Unavailable Primary Care Provider Unavailable Encounter Details Date Type Department Care Team Description 05/01/2016 Hospital Encounter HX [facility] Guido Man M.D. [address] [place] [address], [address] [place] [address] (Wo rk) Social History Tobacco [...] do you attend yarsanism or Never 2021 druze services? Do you [...] Comments Blood Pressure 114/74 05/01/2016 1:54 PM INSTALLATION SUPERINTENDENT Pulse - - Temperature - - Respiratory Rate - - Oxygen Saturation - - Inhaled Oxygen Concentration - - Weight 123 kg (271 lb 4.4 oz) 05/01/2016 1:54 PM INSTALLATION SUPERINTENDENT Height - - Body Mass Index 40.18 [...] Man M.D. - 05/01/2016 1:29 PM CST [id number] CHIEF COMPLAINT/REASON FOR VISIT Left shoulder pain, [...] x-rays performed of her left clavicle in [place]. She brought the images for me today [...] the x-rays that she had performed at [facility]. 3. I am going to [...] Yobani Man M.D./veena cc: [place] [address] Electronically Signed By: YOBANI MAN MD On: 05/06/2016 11:37 AM Modified by and Electronically Signed by: YOBANI MAN MD On: 05/06/2016 11:37 AM Source: [facility] MHSDOLBEYNONRADSYS Document Id: [id number] ALLATION SUPERINTENDENT documented in this encounter Nursing Notes Wilda Giraldo L.P.N. - 05/07/2016 5:01 PM CST xray results Patient notified of results and will call back if she decides to move forward with left subacromialinjection. Electronically Signed By: WILDA GIRALDO LPN On: 05/07/2016 05:02 PM [facility] Document Id: [id number] ALLATION SUPERINTENDENT Wilda Giraldo L.P.N. - 05/01/2016 2:41 PM CST Lyviria Called in Electronically Signed By: WILDA GIRALDO LPN On: 05/01/2016 02:42 PM Source: [employer] Document Id: [id number] ALLATION SUPERINTENDENT documented in this encounter Miscellaneous Notes Miscellaneous - Wilda Giraldo L.P.N. 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 Intake/History Entered On: 05/01/2016 13:56 INSTALLATION SUPERINTENDENT Performed On: 05/01/2016 13:54 INSTALLATION SUPERINTENDENT by WILDA GIRALDO LPN Intake Systolic Blood Pressure : 114 mmHg Diastolic Blood Pressure : 74 mmHg NIBP Mean : 87 mmHg BP Location : Left upper extremity Blood Pressure Cuff Size : Regular Actual Weight : 123.05 kg(Converted to: 271 lb 4 oz) Dosing Weight Clinic : 123.05 kg WILDA GIRALDO LPN - 05/01/2016 13:54 INSTALLATION SUPERINTENDENT General Info Information Given By : Patient Languages : Qatari Is Patient Female and 13-50 no hysterectomy : No WILDA GIRALDO LPN - 05/01/2016 13:54 INSTALLATION SUPERINTENDENT Subjective Pain Symptoms : No WILDA GIRALDO LPN - 05/01/2016 13:54 INSTALLATION SUPERINTENDENT Dependent Habits Exposure to Tobacco Smoke : Other: never Smoking Status : Never smoker Tobacco 2A : No Tobacco Use/Currently Using : No Tobacco Use/Last 30 Days : No Tobacco Use/Last 12 months : No WILDA GIRALDO LPN - 05/01/2016 13:54 INSTALLATION SUPERINTENDENT [facility] Document Id: [id number] INSTALLATION SUPERINTENDENT!22 ALLATION SUPERINTENDENT documented in this encounter Plan of Treatment Upcoming Encounters Date Type Specialty Care Team Description 02/04/2022 Office Visit Orthopedic Surgery Deon Herrera M.D. [address] [place], [place] [phone] (Wo rk) documented as of this encounter Visit Diagnoses Not on filedocumented in this encounter Additional Health Concerns Assessment Noted Time PHQ-9 Depression Total Score: 5 04/29/2016 10:10 AM CS T documented as of this encounter
--- OUTSIDE RECORDS SUMMARY | 2022-01-21 08:57 | XMS_ITS | Encounter Summary ---
:1955 Author Organization [facility] Address [address] [place] [address] Care Team Providers Name Role Phone Unavailable Primary Care Provider Unavailable Encounter Details Date Type Department Care Team Description 03/19/2016 Hospital Encounter HX [facility] Guido Man M.D. [address] [place] [address], [address] [place] [address] (Wo rk) Social History Tobacco [...] do you attend congregation or Never 2021 congregation services? Do you [...] Comments Blood Pressure 112/72 03/19/2016 11:12 AM DIGITIZER Pulse - - Temperature - - Respiratory Rate - - Oxygen Saturation - - Inhaled Oxygen Concentration - - Weight 120 kg (265 lb 1.7 oz) 03/19/2016 11:12 AM DIGITIZER Height - - Body Mass Index 39.26 [...] Man M.D. - 03/19/2016 11:01 AM CST [id number] CHIEF COMPLAINT/REASON FOR VISIT Follow up low [...] MAN MD On: 03/21/2016 03:48 PM Source: [facility] MHSDOLBEYNONRADSYS Document Id: [id number] TIZER documented in this encounter Miscellaneous Notes Telephone Encounter - Conversion, Historical Provider Ser - 03/21/2016 4:02 PM CST *Phone Message/Dr. Man Document Contains Addenda Addendum by KATE GIRALDO LPN on March 21, 2016 16:55:37 DIGITIZER Patient notified of xray results. From: CHELA CASTILLO ( [place] Coating Mixer Supervisor) To: Physical Medicine and Rehabilitation Staff; Sent: 03/21/2016 16:02:52 DIGITIZER Subject: *Phone Message/Dr. Man Caller is: ( [...] heard anything. Please call her back at [phone] with results. Advice/Action: Source used: ( ) [...] back cell phone number ( ) Source: [facility] [employer] Document Id: [id number] Miscellaneous - Yobani Man M.D. - 03/19/2016 12:15 PM CST Ambulatory Patient Summary [address] [id number] Visit Information Name: YAZ CARO [facility] Number: [id number] Current Date: 03/19/2016 12:15:29 Physicians [...] dont have one. Go to [email or web address] and click on Create Your Account. Then, follow the directions to complete the online form. Youll be asked for your [facility] number which you can find at the top of this document. Your Goals/Additional instructions: Source: [facility] POWERCHART Document Id: [id number] TIZER Miscellaneous - Yobani Man M.D. - 03/19/2016 12:15 PM CST Ambulatory Discharge Medication List [address] [id number] Visit Information Name: YAZ CARO [facility] Number: [id number] Current Date: 03/19/2016 12:15:28 Attending [...] MD Signed On:19-MAR-2016 12:14:49 Additional Information: Source: [facility] [employer] Document Id: [id number] TIZER Miscellaneous - Kate Giraldo L.P.N. - 03/19/2016 11:12 AM CST Adult Thoracic Medicine Specialist Intake/History Adult Thoracic Medicine Specialist Intake/History Entered On: 03/19/2016 11:13 DIGITIZER Performed On: 03/19/2016 11:12 DIGITIZER by KATE GIRALDO LPN Intake Systolic Blood Pressure : 112 mmHg Diastolic Blood Pressure : 72 mmHg NIBP Mean : 85 mmHg BP Location : Left upper extremity Blood Pressure Cuff Size : Large Actual Weight : 120.25 kg(Converted to: 265 lb 2 oz) Dosing Weight Clinic : 120.25 kg KATE GIRALDO LPN - 03/19/2016 11:12 DIGITIZER General Info Information Given By : Patient Languages : Armenian Is Patient Female and 13-50 no hysterectomy : No KATE GIRALDO LPN - 03/19/2016 11:12 DIGITIZER Subjective Pain Symptoms : No KATE GIRALDO LPN - 03/19/2016 11:12 DIGITIZER Dependent Habits Exposure to Tobacco Smoke : Other: never Smoking Status : Never smoker Tobacco 2A : No Tobacco Use/Currently Using : No Tobacco Use/Last 30 Days : No Tobacco Use/Last 12 months : No KATE GIRALDO LPN - 03/19/2016 11:12 DIGITIZER [facility] Document Id: [id number] DIGITIZER!22 TIZER documented in this encounter Plan of Treatment Upcoming Encounters Date Type Specialty Care Team Description 02/04/2022 Office Visit Orthopedic Surgery Deon Herrera M.D. [address] [place], [place] [phone] (Wo rk) documented as of this encounter Procedures Procedure Name Priority Date/Time Associated Diagnosis Comme nts DX FOOT RIGHT 3+ Routine 03/19/2016 12:25 PM Resu lts for this VIEWS DIGITIZER procedure are i n the results section. DX FOOT LEFT 3+ Routine 03/19/2016 12:25 PM Resul ts for this VIEWS DIGITIZER procedure are i n the results section. documented in this encounter Results DX Foot Left 3+ Views (03/19/2016 12:25 PM DIGITIZER) Anatomical Region Laterality Modality Lower Extremity, Foot Left Radiographic Imagi ng Specimen (Source) Anatomical Collection Method Collection Time Re ceived Time Location / / Volume Laterality 03/19/2016 12:25 PM DIGITIZER Addenda Addendum by Provider, Flynn Hopkins o tegan 03/19/2016 12:25 PM DIGITIZER RAD^^^OW XR Foot Left 3 or more views 03/19/2016 12:25:28 Impressions 03/19/2016 12:55 PM DIGITIZER ??Please see above dictation. Narrative 03/19/2016 12:55 PM DIGITIZER EXAM: ??XR Foot Left 3 or more [...] Foot Right 3+ Views (03/19/2016 12:25 PM DIGITIZER) Anatomical Region Laterality Modality Lower Extremity, Foot Right Radiographic Imagi ng Specimen (Source) Anatomical Collection Method Collection Time Re ceived Time Location / / Volume Laterality 03/19/2016 12:25 PM DIGITIZER Addenda Addendum by Provider, Flynn Hopkins 03/19/2016 12:25 PM DIGITIZER RAD^^^OW XR Foot Right 3 or more views 03/19/2016 12:25:28 Impressions 03/19/2016 12:56 PM DIGITIZER ??Please see above dictation. Narrative 03/19/2016 12:56 PM DIGITIZER EXAM: ??XR Foot Right 3 or more [...]
--- OUTSIDE RECORDS SUMMARY | 2022-01-21 08:57 | XMS_ITS | Encounter Summary ---
:1955 Author Organization [facility] Address [address] [place] [address] Care Team Providers Name Role Phone Unavailable Primary Care Provider Unavailable Encounter Details Date Type Department Care Team Description 12/04/2015 Hospital Encounter HX [facility] Guido Man M.D. [address] [place] [address], [address] [place] [address] (Wo rk) Social History Tobacco [...] do you attend confucianist or Never 2021 baptist services? Do you [...] Man M.D. - 12/04/2015 3:06 PM CDT [id number] CHIEF COMPLAINT/REASON FOR VISIT Follow up low [...] for this which she will initiate in [place]. 4. Ms. Caro will contact me if [...] MAN MD On: 12/18/2015 02:22 PM Source[facility] Document Id: [id number] documented in this encounter Miscellaneous Notes Miscellaneous - Priscilla Angel R.N. - 02/26/2016 9:40 AM CST refill request - Lyrica Document Contains Addenda Addendum by PRISCILLA ANGEL RN on February 27, 2016 13:53:12 METER MAINTENANCE PERSON called to the pharmacy. Addendum by YOBANI MAN MD on February 27, 2016 12:19:50 METER MAINTENANCE PERSON From: YOBANI MAN MD To: [place] Medication Refill; Sent: 02/27/2016 12:19:50 METER MAINTENANCE PERSON Subject: RE: refill request - Lyrica Please call. Thanks. Addendum by YOBANI MAN MD on February 27, 2016 12:19:41 METER MAINTENANCE PERSON Approved Order:pregabalin (Lyrica 150 mg oral capsule) 1 cap(s) PO 2xDay Qty: 60 cap(s) Refills: 5 Substitutions Allowed Print - [id number] Signed by YOBANI MAN MD 02/27/2016 12:19:35 From: PRISCILLA ANGEL RN ( [place] Medication Refill) To: YOBANI MAN MD; Sent: 02/26/2016 09:40:02 METER MAINTENANCE PERSON Subject: refill request - Lyrica On hold pending signature Order:pregabalin (Lyrica 150 mg oral capsule) 1 cap(s) PO 2xDay Qty: 60 cap(s) Refills: 5 Substitutions Allowed Print - [id number] Caller is: ( ) Patient ( ) Mother ( ) Father ( ) Spouse ( ) Daughter ( ) Son ( x ) Pharmacy ( ) Other: Provider: [facility]: [facility] Name of Medications Needing Refill: Lyrica Last Refill Date: 01/29/16 Additional Information: Last / Future Appointment: 12/04/15 Disposition: ( x ) Send to Pharmacy ( ) Call to Pharmacy ( ) Patient will picking crew supervisor Script ( ) Mail Rxto Patient Source: [facility] POWERCHART Document Id: [id number] Miscellaneous - Yobani Man M.D. - 12/04/2015 3:51 PM CDT Ambulatory Patient Summary [address] [id number] Visit Information Name: KHRISMATTSONELYAZ [facility] Number: [id number] Current Date: 12/04/2015 15:51:07 [...] if you dont have one. Go to [email or web address] and click on Create Your Account. Then, follow the directions to complete the online form. Youll be asked for your [facility] number which you can find at the top of this document. Your Goals/Additional instructions: Source: [facility] POWERCHART Document Id: [id number] Miscellaneous - Yobani Man M.D. - 12/04/2015 3:51 PM CDT Ambulatory Discharge Medication List [address] [id number] Visit Information Name: YAZ CARO [facility] Number: [id number] Visit Date: 12/04/2015 15:51:06 [...] MD Signed On:04-DEC-2015 15:50:37 Additional Information: Source: [facility] POWERCHART Document Id: [id number] documented in this encounter Plan of Treatment Upcoming Encounters Date Type Specialty Care Team Description 02/04/2022 Office Visit Orthopedic Surgery Deon Herrera M.D. [address] [place] [phone] (Wo rk) documented as of this encounter Visit Diagnoses Not on filedocumented in this encounter Additional Health Concerns Assessment Noted Time PHQ-9 Depression Total Score: 4 08/10/2015 9:06 AM CDT documented as of this encounter
--- OUTSIDE RECORDS SUMMARY | 2022-01-21 08:57 | XMS_ITS | Encounter Summary ---
:1955 Author Organization [facility] Address [address] [place] [address] Care Team Providers Name Role Phone Unavailable Primary Care Provider Unavailable Encounter Details Date Type Department Care Team Description 11/27/2015 Hospital Encounter HX RST PAIN REHAB PSYCH Lokesh Kelly, OP VIDEO TAPE EDITOR, PULMONARY PHYSICIAN [address] [place] [phone] (Wo rk) Social History Tobacco Use Types [...] do you attend protestant or Never 2021 quaker services? Do you [...] Orthopedic Surgery Deon Herrera M.D. [address] [place], [place] [phone] (Wo rk) documented as of this encounter Visit Diagnoses Not on filedocumented in this encounter Additional Health Concerns Assessment Noted Time PHQ-9 Depression Total Score: 4 08/10/2015 9:06 AM CDT documented as of this encounter
--- OUTSIDE RECORDS SUMMARY | 2022-01-21 08:57 | XMS_ITS | Encounter Summary ---
:1955 Author Organization [facility] Address [address] [place] [address] Care Team Providers Name Role Phone Unavailable Primary Care Provider Unavailable Encounter Details Date Type Department Care Team Description 10/24/2016 Hospital Encounter HX [facility]R Guido Man M.D. [address] [place] [address], [address] [place] [address] (Wo rk) Social History Tobacco [...] do you attend catholic or Never 2021 bahai services? Do you [...] Man M.D. - 10/24/2016 3:52 PM CDT [id number] CHIEF COMPLAINT/REASON FOR VISIT Bilateral foot pain [...] MAN MD On: 10/28/2016 12:01 PM Source: [facility] MHSDOLBEYNONRADSYS Document Id: [id number] documented in this encounter Miscellaneous Notes Miscellaneous [...] cap(s) Refills: 5 Substitutions Allowed Print - [id number] on [employer] Signed by YOBANI MAN MD 11/04/2016 10:05:20 From: JULIENNE PARSON LPN ([facility] Nurse) To: YOBANI MAN MD; Sent: 11/04/2016 09:35:06 CDT Subject: lyrica 50mg refill On hold pending signature Order:pregabalin (Lyrica 50 mg oral capsule) 1 cap(s) PO Daily Qty: 30 cap(s) Refills: 5 Substitutions Allowed Print - [id number] on [employer] (from [id number]) in session 83 Caller is: ( ) Patient ( ) Mother ( ) Father ( ) Spouse ( ) Daughter ( ) Son ( ) Pharmacy ( ) Other: Provider: Dr. Man Pharmacy: [facility] Name of Medications Needing Refill: lyrica 50mg Last Refill Date: 11/02/16 Additional Information: Take 1 capsule by mouth daily Last / Future Appointment: Disposition: ( ) Send to Pharmacy ( ) Call to Pharmacy ( ) Patient will picker Script ( ) Mail Rx to Patient Source: [facility] POWERCHART Document Id: [id number] Miscellaneous - Yobani Man M.D. - 10/24/2016 4:52 PM CDT Ambulatory Patient Summary [facility] [address] [place] [id number] Visit Information Name: YAZ ADAMES [facility] Number: [id number] Current Date: 10/24/2016 16:52:38 Physicians [...] Provider 11/07/2016 13:35 FBCV Neurology José Miguel GARZA, Tho [place] 12/03/2016 15:30 FBCV PM&R Yobani [...] if you dont have one. Go to [email or web address] and click on Create Your Account. Then, follow the directions to complete the online form. Youll be asked for your [facility] number which you can find at the top of this document. Your Goals/Additional instructions: Source: [facility] POWERCHART Document Id: [id number] Miscellaneous - Yobani Man M.D. - 10/24/2016 4:52 PM CDT Ambulatory Discharge Medication List [address] [id number] Visit Information Name: YAZ ADAMES [facility] Number: [id number] Current Date: 10/24/2016 16:52:37 Attending [...] MD Signed On:24-OCT-2016 16:52:16 Additional Information: Source: [facility] POWERCHART Document Id: [id number] Miscellaneous - Kate Giraldo LCandyPCandyN. - 10/24/2016 4:07 PM CDT Adult Supervisor Baking Intake/History Adult Supervisor Baking Intake/History Entered On: 10/24/2016 16:08 CDT Performed On: 10/24/2016 16:07 CDT by KATE GIRALDO LPN Intake Systolic Blood Pressure : 124 mmHg Diastolic Blood Pressure : 76 mmHg NIBP Mean : 92 mmHg BP Location : Left upper extremity Blood Pressure Cuff Size : Regular Actual Weight : 118.7 kg(Converted to: 261 lb 11 oz) Dosing Weight Clinic : 118.7 kg MARC GIRALDOFlo HER LPN - 10/24/2016 16:07 CDT General Info Information Given By : Patient Languages : Niuean Is Patient Female and 13-50 no hysterectomy : No KATE GIRALDODeb VARGAS - 10/24/2016 16:07 CDT Subjective Pain Symptoms : No KRISTALKATE ARDEN VARGAS - 10/24/2016 16:07 CDT Dependent Habits Exposure to Tobacco Smoke : Other: never Smoking Status : Never smoker Tobacco 2A : No Tobacco Use/Currently Using : No Tobacco Use/Last 30 Days : No Tobacco Use/Last 12 months : No KRISTALKATE ARDEN VARGAS - 10/24/2016 16:07 CDT Source: [employer] Document Id: [id number] CDT!22 documented in this encounter Plan of Treatment Upcoming Encounters Date Type Specialty Care Team Description 02/04/2022 Office Visit Orthopedic Surgery Deon Herrera M.D. [address] [place], [place] [phone] (Wo rk) documented as of this encounter Visit Diagnoses Not on filedocumented in this encounter Additional Health Concerns Assessment Noted Time PHQ-9 Depression Total Score: 5 04/29/2016 10:10 AM CS T documented as of this encounter
--- OUTSIDE RECORDS SUMMARY | 2022-01-21 08:57 | XMS_ITS | Encounter Summary ---
:1955 Author Organization [facility] Address [address] [place] [address] Care Team Providers Name Role Phone Unavailable Primary Care Provider Unavailable Encounter Details Date Type Department Care Team Description 12/18/2015 Hospital Encounter HX RST PAIN REHAB Kaye Fitzpatrick, PSYCH OP BIODIESEL PLANT SUPERINTENDENT, AUXILIARY EQUIPMENT OPERATOR, R.N. [address] PR[address]ER, [address] [place], [place] [address] (Wo rk) Social History Tobacco Use Types [...] do you attend adventism or Never 2021 oriental orthodox services? Do [...] Orthopedic Surgery Deon Herrera M.D. [address] [place], [place] [phone] (Wo rk) documented as of this encounter Visit Diagnoses Not on filedocumented in this encounter Additional Health Concerns Assessment Noted Time PHQ-9 Depression Total Score: 4 08/10/2015 9:06 AM CDT documented as of this encounter
--- OUTSIDE RECORDS SUMMARY | 2022-01-21 08:57 | XMS_ITS | Encounter Summary ---
:1955 Author Organization [facility] Address [address] [place] [address] Care Team Providers Name Role Phone Unavailable Primary Care Provider Unavailable Encounter Details Date Type Department Care Team Description 08/28/2016 Hospital Encounter HX [facility] L[facility]R Guido Man M.D. [address] [place] [address], [address] [place] [address] (Wo rk) Social History Tobacco [...] do you attend gnosticism or Never 2021 gnosticist services? Do you [...] Man M.D. - 08/28/2016 10:27 AM CDT [id number] CHIEF COMPLAINT/REASON FOR VISIT Bilateral foot pain, [...] MAN MD On: 09/03/2016 04:31 PM Source: [facility] MHSDOLBEYNONRADSYS Document Id: [id number] documented in this encounter Miscellaneous Notes Telephone [...] like update on prior auth. Please call [phone] Addendum by KATE GIRALDO LPN on August 28, 2016 16:48:50 CDT Notified that will start prior auth From: CHELA CASTILLO ( [employer] Director Of Digital Technology) To: Physical Medicine and Rehabilitation Staff; Sent: [...] for both. Please call her back at [phone]. Advice/Action: Source used: ( ) Verbalizes understanding [...] back cell phone number ( ) Source: [facility] [employer] Document Id: [id number] Miscellaneous - Yobani Man M.D. - 08/28/2016 11:24 AM CDT Ambulatory Patient Summary [address] [id number] Visit Information Name: YAZ CARO [facility] Number: [id number] Current Date: 08/28/2016 [...] within a 24 hr period Routed to [address] [place], [place] [phone] loratadine (loratadine 10 mg oral tablet) 1 [...] if you dont have one. Go to [email or web address] and click on Create Your Account. Then, follow the directions to complete the online form. Youll be asked for your [facility] number which you can find at the top of this document. Your Goals/Additional instructions: Source: [facility] POWERCHART Document Id: [id number] Miscellaneous - Yobani Man M.D. - 08/28/2016 11:24 AM CDT Ambulatory Discharge Medication List [address] [id number] Visit Information Name: YAZ CARO [facility] Number: [id number] Current Date: 08/28/2016 [...] within a 24 hr period Routed to [address] [id number] loratadine (loratadine 10 mg oral tablet) 1 [...] MD Signed On:28-AUG-2016 11:24:00 Additional Information: Source: [facility] [employer] Document Id: [id number] Miscellaneous - Kate Giraldo L.P.N. - 08/28/2016 10:53 AM CDT Adult [place]y Head Former Intake/History Adult Dra[place]y Head Former Intake/History Entered On: 08/28/2016 10:55 CDT Performed [...] Information Given By : Patient Languages : Yi Is Patient Female and 13-50 no hysterectomy [...] GIRALDO LPN - 08/28/2016 10:53 CDT [facility] Document Id: [id number] CDT!22 Miscellaneous - Yobani Man M.D. - 08/28/2016 12:00 AM CDT [id number] August 28, 2016 RE: Yaz Caro : [...] M.D. Department of Physical Medicine and Rehabilitation [facility] [place] [address] Phone: cac Electronically Signed By: YOBANI MAN MD On: 09/03/2016 04:41 PM Modified by and Electronically Signed by: YBOANI MAN MD On: 09/03/2016 04:41 PM Source: [facility] MHSDOLBEYNONRADSYS Document Id: [id number] documented in this encounter Plan of Treatment Upcoming Encounters Date Type Specialty Care Team Description 02/04/2022 Office Visit Orthopedic Surgery Deon Herrera M.D. [address] [place] [phone] (Wo rk) documented as of this encounter Visit Diagnoses Not on filedocumented in this encounter Additional Health Concerns Assessment Noted Time PHQ-9 Depression Total Score: 5 04/29/2016 10:10 AM CS T documented as of this encounter
--- OUTSIDE RECORDS SUMMARY | 2022-01-21 08:57 | XMS_ITS | Encounter Summary ---
:1955 Author Organization [facility] Address [address] [place] [address] Care Team Providers Name Role Phone Unavailable Primary Care Provider Unavailable Encounter Details Date Type Department Care Team Description 06/04/2016 Hospital Encounter HX [facility]V LULR Guido Man M.D. [address] [place] [address], [address] [place] [address] (Wo rk) Social History Tobacco [...] do you attend bahai or Never 2021 jehovah's witness services? Do [...] Man M.D. - 06/04/2016 1:58 PM CDT [id number] CHIEF COMPLAINT/REASON FOR VISIT Follow up left [...] MAN MD On: 06/05/2016 04:13 PM Source: [facility] MHSDOLBEYNONRADSYS Document Id: [id number] documented in this encounter Procedure Notes Yobani [...] MAN MD On: 06/05/2016 11:07 AM Source: [facility] MHSDOLBEYNONRADSYS Document Id: [id number] documented in this encounter Miscellaneous Notes Miscellaneous [...] Patient ( ) ( ) Call for Ship Unloader ( ) Follow up on Results ( ) Other: PROVIDER: ( ) Call Physician ( ) Call Pharmacist ( ) Call Lab ( ) Other: Special Instructions: Comments: Source: [facility] POWERCHART Document Id: [id number] Miscellaneous - Yobani Man M.D. - 06/04/2016 3:20 PM CDT Ambulatory Patient Summary [address] [id number] Visit Information Name: EMMAYAZ CHRISTOPHER [facility] Number: [id number] Current Date: 06/04/2016 15:20:03 Physicians [...] if you dont have one. Go to [email or web address] and click on Create Your Account. Then, follow the directions to complete the online form. Youll be asked for your [facility] number which you can find at the top of this document. Your Goals/Additional instructions: Source: [facility] POWERCHART Document Id: [id number] Miscellaneous - Yobani Man M.D. - 06/04/2016 3:20 PM CDT Ambulatory Discharge Medication List [address] [id number] Visit Information Name: YAZ ADAMES [facility] Number: [id number] Current Date: 06/04/2016 15:20:02 Attending [...] MD Signed On:04-JUN-2016 15:19:07 Additional Information: Source: [facility] POWERCHART Document Id: [id number] Miscellaneous - Kate Giraldo L.PCandyNCandy - 06/04/2016 2:33 PM CDT Adult Chemical Technician Intake/History Adult Chemical Technician Intake/History Entered On: 06/04/2016 14:35 CDT Performed [...] Information Given By : Patient Languages : Pashto Is Patient Female and 13-50 no hysterectomy [...] GIRALDO LPN - 06/04/2016 14:33 CDT [email or web address] Document Id: [id number] CDT!22 documented in this encounter Plan of Treatment Upcoming Encounters Date Type Specialty Care Team Description 02/04/2022 Office Visit Orthopedic Surgery Deon Herrera M.D. [address] [place], [place] [phone] (Wo rk) documented as of this encounter Visit Diagnoses Not on filedocumented in this encounter Additional Health Concerns Assessment Noted Time PHQ-9 Depression Total Score: 5 04/29/2016 10:10 AM CS T documented as of this encounter
--- OUTSIDE RECORDS SUMMARY | 2022-01-21 08:57 | XMS_ITS | Encounter Summary ---
:1955 Author Organization [facility] Address [address] [place] [address] Care Team Providers Name Role Phone Unavailable Primary Care Provider Unavailable Encounter Details Date Type Department Care Team Description 11/27/2015 Hospital Encounter HX RST PRC FACFEE ADULT Robin, Lokesh rivera M, CONTROL SYSTEMS TECHNICIAN, DIRECTOR OF DEMENTIA OPERATIONS [address] [place] [phone] (Wo rk) Social History Tobacco Use Types [...] do you attend christian or Never 2021 hoahaoism services? Do you [...] Orthopedic Surgery Deon Herrera M.D. [address] [place], [place] [phone] (Wo rk) documented as of this encounter Visit Diagnoses Not on filedocumented in this encounter Additional Health Concerns Assessment Noted Time PHQ-9 Depression Total Score: 4 08/10/2015 9:06 AM CDT documented as of this encounter
--- OUTSIDE RECORDS SUMMARY | 2022-01-21 08:57 | XMS_ITS | Encounter Summary ---
:1955 Author Organization [facility] Address [address] [place] [address] Care Team Providers Name Role Phone Unavailable Primary Care Provider Unavailable Encounter Details Date Type Department Care Team Description 10/11/2015 Hospital Encounter HX [facility] FBCV LULR Guido Man M.D. [address] [place] [address], [address] [place] [address] (Wo rk) Social History Tobacco [...] do you attend pentecostal or Never 2021 taoism services? Do you [...] Man M.D. - 10/11/2015 8:17 AM CDT [id number] CHIEF COMPLAINT/REASON FOR VISIT Low back and [...] MAN MD On: 10/11/2015 06:13 PM Source: [facility] MHSDOLBEYNONRADSYS Document Id: [id number] documented in this encounter Procedure Notes Yobani [...] A preprocedure image was saved to the [email or web address]. Following this, the area was prepped with [...] MAN MD On: 10/11/2015 06:14 PM Source: [facility] MHSDOLBEYNONRADSYS Document Id: [id number] documented in this encounter Miscellaneous Notes Miscellaneous [...] Patient ( ) ( ) Call for Hook Up ( ) Follow up on Results ( ) Other: PROVIDER: ( ) Call Physician ( ) Call Pharmacist ( ) Call Lab ( ) Other: Special Instructions: Comments: Source: [facility] POWERCHART Document Id: [id number] Miscellaneous - Yobani Man M.D. - 10/11/2015 8:48 AM CDT Ambulatory Discharge Medication List [address] [id number] Visit Information Name: YAZ CARO [facility] Number: [id number] Visit Date: 10/11/2015 08:48:11 Attending [...] MD Signed On:11-OCT-2015 08:47:46 Additional Information: Source: [facility] POWERCHART Document Id: [id number] Miscellaneous - Yobani Man M.D. - 10/11/2015 8:48 AM CDT Ambulatory Patient Summary [address] [id number] Visit Information Name: YAZ CARO [facility] Number: [id number] Current Date: 10/11/2015 08:48:12 Physicians [...] if you dont have one. Go to [email or web address] and click on Create Your Account. Then, follow the directions to complete the online form. Youll be asked for your [facility] number which you can find at the top of this document. Your Goals/Additional instructions: Source: [facility] POWERCHART Document Id: [id number] Miscellaneous - Kate Giraldo, L.P.N. - 10/11/2015 8:27 AM CDT Adult Sprinkler Irrigation Equipment Mechanic Intake/History Adult Sprinkler Irrigation Equipment Mechanic Intake/History Entered On: 10/11/2015 8:29 CDT Performed [...] GIRALDO LPN - 10/11/2015 8:27 CDT Source: [facility] [employer] Document Id: [id number] CDT!22 documented in this encounter Plan of Treatment Upcoming Encounters Date Type Specialty Care Team Description 02/04/2022 Office Visit Orthopedic Surgery Deon Herrera M.D. [address] [place] [phone] (Wo rk) documented as of this encounter Visit Diagnoses Not on filedocumented in this encounter Additional Health Concerns Assessment Noted Time PHQ-9 Depression Total Score: 4 08/10/2015 9:06 AM CDT documented as of this encounter
--- OUTSIDE RECORDS SUMMARY | 2022-01-21 08:58 | XMS_ITS | Encounter Summary ---
:1955 Author Organization [facility] Address [address] [place] [address] Care Team Providers Name Role Phone Unavailable Primary Care Provider Unavailable Encounter Details Date Type Department Care Team Description 08/11/2015 - Hospital Encounter HX RST PAIN REHAB Zuly Frederick , 08/18/2015 PSYCH OP Ph.D., L.P. [address] [place] [address] Social History Tobacco Use Types [...] do you attend advent or Never 2021 zoroastrian services? Do you [...] Orthopedic Surgery Deon Herrera M.D. [address] [place], [place] [phone] (Wo rk) documented as of this encounter Visit Diagnoses Not on filedocumented in this encounter Additional Health Concerns Assessment Noted Time PHQ-9 Depression Total Score: 4 08/10/2015 9:06 AM CDT documented as of this encounter
--- OUTSIDE RECORDS SUMMARY | 2022-01-21 08:58 | XMS_ITS | Encounter Summary ---
:1955 Author Organization [facility] Address [address] [place] [address] Care Team Providers Name Role Phone Unavailable Primary Care Provider Unavailable Encounter Details Date Type Department Care Team Description 08/10/2015 - Hospital Encounter HX RST PAIN REHAB Kaye Fitzpatrick 08/17/2015 PSYCH OP L, BOMBSIGHT SPECIALIST, DIE MECHANIC, R. N. [address] PRATHER, Evaristo [address] [place], [place] [address] (Wo rk) Social History [...] do you attend caodaism or Never 2021 congregation services? Do you [...] Orthopedic Surgery Deon Herrera M.D. [address] [place], [place] [phone] (Wo rk) documented as of this encounter Visit Diagnoses Not on filedocumented in this encounter Additional Health Concerns Assessment Noted Time PHQ-9 Depression Total Score: 4 08/10/2015 9:06 AM CDT documented as of this encounter
--- OUTSIDE RECORDS SUMMARY | 2022-01-21 08:58 | XMS_ITS | Encounter Summary ---
:1955 Author Organization [facility] Address [address] [place] [address] Care Team Providers Name Role Phone Unavailable Primary Care Provider Unavailable Encounter Details Date Type Department Care Team Description 09/25/2015 Hospital Encounter HX RST PRC JANINAFEKaye Barbosa, ADULT CAUSTIC LIQUOR MAKER, FIRESTOPPER INSTALLER, R.N. [address] PRATHER, Evaristo [address] [place], [place] [address] (Wo rk) Social History Tobacco Use Types [...] do you attend mandaeism or Never 2021 denominational services? Do you [...] Orthopedic Surgery Deon Herrera M.D. [address] [place], [place] [phone] (Wo rk) documented as of this encounter Visit Diagnoses Not on filedocumented in this encounter Additional Health Concerns Assessment Noted Time PHQ-9 Depression Total Score: 4 08/10/2015 9:06 AM CDT documented as of this encounter
--- OUTSIDE RECORDS SUMMARY | 2022-01-21 08:58 | XMS_ITS | Encounter Summary ---
:1955 Author Organization [facility] Address [address] [place] [address] Care Team Providers Name Role Phone Unavailable Primary Care Provider Unavailable Encounter Details Date Type Department Care Team Description 08/11/2015 - Hospital Encounter HX RST PAIN REHAB Kaye Fitzpatrick 08/18/2015 PSYCH OP L, REGIONAL MARKETING DIRECTOR, CLIENT ACCOUNT REPRESENTATIVE, R. N. [address] [facility] [address] [facility] [address] PRATHER, Evaristo [address] [place], [place] [address] (Wo rk) Social History [...] do you attend temple or Never 2021 mosque services? Do you [...] Orthopedic Surgery Deon Herrera M.D. [address] [place], [place] [phone] (Wo rk) documented as of this encounter Visit Diagnoses Not on filedocumented in this encounter Additional Health Concerns Assessment Noted Time PHQ-9 Depression Total Score: 4 08/10/2015 9:06 AM CDT documented as of this encounter
--- OUTSIDE RECORDS SUMMARY | 2022-01-21 08:58 | XMS_ITS | Encounter Summary ---
:1955 Author Organization [facility] Address [address] [place] [address] Care Team Providers Name Role Phone Unavailable Primary Care Provider Unavailable Encounter Details Date Type Department Care Team Description 08/28/2015 Hospital Encounter HX [facility] FBCV LULR Guido Man M.D. [address] [place] [address], [address] [place] [address] (Wo rk) Social History Tobacco [...] or relatives? How often do you attend methodist or Never 2021 mandaen services? Do you belong to any clubs or Yes 12/12/2021 organizations such as methodist groups, unions, fraternal or athletic groups, or [...] Man M.D. - 08/28/2015 2:42 PM CDT [id number] CHIEF COMPLAINT/REASON FOR VISIT Follow up low back and right hip pain. HISTORY OF PRESENT ILLNESS Ms. Caro returns today in followup. Since I last saw her, she [facility] in [place]. She completed this program August 10. Ms. [...] MAN MD On: 08/29/2015 05:37 PM Source: [facility] MHSDOLBEYNONRADSYS Document Id: [id number] documented in this encounter Miscellaneous Notes Miscellaneous - Yobani Man M.D. - 08/28/2015 3:45 PM CDT Ambulatory Patient Summary [address] [id number] Visit Information Name: NICOLASLucianoEL MATTSONINE [facility] Number: [id number] Current Date: 08/28/2015 15:45:27 Physicians [...] if you dont have one. Go to [email or web address] and click on Create Your Account. Then, follow the directions to complete the online form. Youll be asked for your [facility] number which you can find at the top of this document. Your Goals/Additional instructions: Source: [facility] POWERCHART Document Id: [id number] Miscellaneous - Yobani Man M.D. - 08/28/2015 3:45 PM CDT Ambulatory Discharge Medication List [address] [id number] Visit Information Name: YAZ CARO [facility] Number: [id number] Visit Date: 08/28/2015 15:45:27 Attending [...] MD Signed On:28-AUG-2015 15:45:00 Additional Information: Source: [facility] POWERCHART Document Id: [id number] Miscellaneous - Kate Giraldo L.PCandyN. - 08/28/2015 3:04 PM CDT Adult Oxide Furnace Tender Intake/History Adult Oxide Furnace Tender Intake/History Entered On: 08/28/2015 15:05 CDT Performed On: 08/28/2015 15:04 CDT by KATE GIRALDO LPN Intake Systolic Blood Pressure : 122 mmHg Diastolic Blood Pressure : 72 mmHg NIBP Mean : 89 mmHg BP Location : Left upper extremity Blood Pressure Cuff Size : Large Actual Weight : 115.8 kg(Converted to: 255 lb 5 oz) Dosing Weight Clinic : 115.8 kg KATE GIRALDO LPN - 08/28/2015 15:04 CDT General Info Information Given By : Patient Languages : Syrian Is Patient Female and 13-50 no hysterectomy : No KATE GIRALDO LPN - 08/28/2015 15:04 CDT Subjective Pain Symptoms : No KATE GIRALDO LPN - 08/28/2015 15:04 CDT Dependent Habits Exposure to Tobacco Smoke : Other: never Smoking Status : Never smoker Tobacco 2A : No Tobacco Use/Currently Using : No Tobacco Use/Last 30 Days : No Tobacco Use/Last 12 months : No KATE GIRALDO LPN - 08/28/2015 15:04 CDT Source: [facility] POWERCHART Document Id: [id number] CDT!22 documented in this encounter Plan of Treatment Upcoming Encounters Date Type Specialty Care Team Description 02/04/2022 Office Visit Orthopedic Surgery Deon Herrera M.D. [address] [place] [phone] (Wo rk) documented as of this encounter Visit Diagnoses Not on filedocumented in this encounter Additional Health Concerns Assessment Noted Time PHQ-9 Depression Total Score: 4 08/10/2015 9:06 AM CDT documented as of this encounter
--- OUTSIDE RECORDS SUMMARY | 2022-01-21 08:58 | XMS_ITS | Encounter Summary ---
:1955 Author Organization [facility] Address [address] [place] [address] Care Team Providers Name Role Phone Unavailable Primary Care Provider Unavailable Encounter Details Date Type Department Care Team Description 08/11/2015 - Hospital Encounter HX RST PAIN REHAB Kaye Fitzpatrick 08/18/2015 PSYCH OP L, GRINDER SET UP OPERATOR THREAD TOOL, PRODUCTION GRADER, R. N. [address] PRATHER, Evaristo [address] [place], [place] [address] (Wo rk) Social History [...] do you attend muslim or Never 2021 mandaen services? Do you [...] Visit Orthopedic Surgery Deon Herrera M.D. [address] [place] [phone] (Wo rk) documented as of this encounter Visit Diagnoses Not on filedocumented in this encounter Additional Health Concerns Assessment Noted Time PHQ-9 Depression Total Score: 4 08/10/2015 9:06 AM CDT documented as of this encounter
--- OUTSIDE RECORDS SUMMARY | 2022-01-21 08:58 | XMS_ITS | Encounter Summary ---
:1955 Author Organization [facility] Address [address] [place] [address] Care Team Providers Name Role Phone Unavailable [...] you attend latter day or Never 2021 spiritism services? Do you [...] Visit Orthopedic Surgery Deon Herrera M.D. [address] [place] [phone] (Wo rk) documented as of this encounter Visit Diagnoses Not on filedocumented in this encounter Additional Health Concerns Assessment Noted Time PHQ-9 Depression Total Score: 4 08/10/2015 9:06 AM CDT documented as of this encounter
--- OUTSIDE RECORDS SUMMARY | 2022-01-21 08:58 | XMS_ITS | Encounter Summary ---
:1955 Author Organization [facility] Address [address] [place] [address] Care Team Providers Name Role Phone Unavailable [...] do you attend restorationist or Never 2021 confucianist services? Do you [...] Orthopedic Surgery Deon Herrera M.D. [address] [place] [phone] (Wo rk) documented as of this encounter Visit Diagnoses Not on filedocumented in this encounter Additional Health Concerns Assessment Noted Time PHQ-9 Depression Total Score: 4 08/10/2015 9:06 AM CDT documented as of this encounter
--- OUTSIDE RECORDS SUMMARY | 2022-01-21 08:58 | XMS_ITS | Encounter Summary ---
:1955 Author Organization [facility] Address [address] [place] [address] Care Team Providers Name Role Phone Unavailable [...] do you attend jew or Never 2021 sikh services? Do you [...] Visit Orthopedic Surgery Deon Herrera M.D. [address] [place] [phone] (Wo rk) documented as of this encounter Visit Diagnoses Not on filedocumented in this encounter Additional Health Concerns Assessment Noted Time PHQ-9 Depression Total Score: 6 07/20/2015 8:59 AM CDT documented as of this encounter
--- OUTSIDE RECORDS SUMMARY | 2022-01-21 08:58 | XMS_ITS | Encounter Summary ---
:1955 Author Organization [facility] Address [address] [place] [address] Care Team Providers Name Role Phone Unavailable Primary Care Provider Unavailable Encounter Details Date Type Department Care Team Description 08/10/2015 - Hospital Encounter HX RST PAIN REHAB Kaye Fitzpatrick 08/17/2015 PSYCH OP L, GENERAL ACCOUNTING CLERK, SENIOR EXECUTIVE COMPENSATION ANALYST, R. N. [address] PRATHER, Evaristo [address] [place], [place] [address] (Wo rk) Social History [...] do you attend faith or Never 2021 presybeterian services? Do you [...] Orthopedic Surgery Deon Herrera M.D. [address] [place], [place] [phone] (Wo rk) documented as of this encounter Visit Diagnoses Not on filedocumented in this encounter Additional Health Concerns Assessment Noted Time PHQ-9 Depression Total Score: 4 08/10/2015 9:06 AM CDT documented as of this encounter
--- OUTSIDE RECORDS SUMMARY | 2022-01-21 08:58 | XMS_ITS | Encounter Summary ---
:1955 Author Organization [facility] Address [address] [place] [address] Care Team Providers Name Role Phone Unavailable Primary Care Provider Unavailable Encounter Details Date Type Department Care Team Description 08/11/2015 - Hospital Encounter HX RST PMR PT OT Clare Clay , 08/18/2015 O.T. [address] [facility] [address] [place], [place] [address] (Wo rk) Social History [...] do you attend worship or Never 2021 adventism services? Do you [...] [address] [place], [place] [phone] (Wo rk) documented as of this encounter Visit Diagnoses Not on filedocumented in this encounter Additional Health Concerns Assessment Noted Time PHQ-9 Depression Total Score: 4 08/10/2015 9:06 AM CDT documented as of this encounter
--- OUTSIDE RECORDS SUMMARY | 2022-01-21 08:58 | XMS_ITS | Encounter Summary ---
:1955 Author Organization [facility] Address [address] [place] [address] Care Team Providers Name Role Phone Unavailable Primary Care Provider Unavailable Encounter Details Date Type Department Care Team Description 08/10/2015 - Hospital Encounter HX RST PAIN REHAB Keaton Hale 08/17/2015 PSYCH OP P, Ph.D., L.P. [address] [place] [phone] Social History Tobacco Use Types Packs/Day Years [...] you attend oriental orthodox or Never 2021 jainism services? Do you [...] Surgery Deon Herrera M.D. [address] [place], [place] [phone] (Wo rk) documented as of this encounter Visit Diagnoses Not on filedocumented in this encounter Additional Health Concerns Assessment Noted Time PHQ-9 Depression Total Score: 4 08/10/2015 9:06 AM CDT documented as of this encounter
--- OUTSIDE RECORDS SUMMARY | 2022-01-21 08:58 | XMS_ITS | Encounter Summary ---
:1955 Author Organization [facility] Address [address] [place] [address] Care Team Providers Name Role Phone Unavailable Primary Care Provider Unavailable Encounter Details Date Type Department Care Team Description 08/09/2015 - Hospital Encounter HX RST PAIN REHAB Kaye Fitzpatrick 08/16/2015 PSYCH OP L, TRANSPORT CORPS OFFICER, HAY SORTER, R. N. [address] PRATHER, Evaristo [address] [place], [place] [address] (Wo rk) Social History [...] do you attend temple or Never 2021 pentecostal services? Do you [...]
--- OUTSIDE RECORDS SUMMARY | 2022-01-21 08:58 | XMS_ITS | Encounter Summary ---
:1955 Author Organization [facility] Address [address] [place] [address] Care Team Providers Name Role Phone Unavailable Primary Care Provider Unavailable Encounter Details Date Type Department Care Team Description 08/11/2015 - Hospital Encounter HX RST PAIN REHAB Kaye Fitzpatrick 08/18/2015 PSYCH OP L, RAILWAY ENGINEER, AUTO APPRAISER, R. N. [address] [facility] [address] PRATHER, Evaristo [address] [place], [place] [address] (Wo rk) Social History [...] do you attend yarsanism or Never 2021 yazidism services? Do you [...]
--- OUTSIDE RECORDS SUMMARY | 2022-01-21 08:58 | XMS_ITS | Encounter Summary ---
:1955 Author Organization [facility] Address [address] [place] [address] Care Team Providers Name Role Phone Unavailable Primary Care Provider Unavailable Encounter Details Date Type Department Care Team Description 09/25/2015 Hospital Encounter HX RST PAIN REHAB Kaye Fitzpatrick, PSYCH OP SKATE HOP, GLASS INSPECTOR, R.N. [address] [facility] [address] PRATHER, Evaristo [address] [place], [place] [address] (Wo rk) Social History Tobacco Use Types [...] you attend latter day or Never 2021 jew services? Do you [...] Orthopedic Surgery Deon Herrera M.D. [address] [place], [place] [phone] (Wo rk) documented as of this encounter Visit Diagnoses Not on filedocumented in this encounter Additional Health Concerns Assessment Noted Time PHQ-9 Depression Total Score: 4 08/10/2015 9:06 AM CDT documented as of this encounter
--- OUTSIDE RECORDS SUMMARY | 2022-01-21 08:58 | XMS_ITS | Encounter Summary ---
:1955 Author Organization [facility] Address [address] [place] [address] Care Team Providers Name Role Phone Unavailable Primary Care Provider Unavailable Encounter Details Date Type Department Care Team Description 08/11/2015 - Hospital Encounter HX RST PMR PT OT Denny Reddy 08/18/2015 L, P.T. [address] [place] [address] Social History Tobacco Use Types Packs/Day Years [...] do you attend anabaptism or Never 2021 anglican services? Do you [...] Orthopedic Surgery Deon Herrera M.D. [address] [place], [place] [phone] (Wo rk) documented as of this encounter Visit Diagnoses Not on filedocumented in this encounter Additional Health Concerns Assessment Noted Time PHQ-9 Depression Total Score: 4 08/10/2015 9:06 AM CDT documented as of this encounter
--- OUTSIDE RECORDS SUMMARY | 2022-01-21 08:58 | XMS_ITS | Encounter Summary ---
:1955 Author Organization [facility] Address [address] [place] [address] Care Team Providers Name Role Phone Unavailable Primary Care Provider Unavailable Encounter Details Date Type Department Care Team Description 08/10/2015 - Hospital Encounter HX RST PAIN REHAB Kaye Fitzpatrick 08/17/2015 PSYCH OP L, BARREL TESTER, MEDICAL STAFF ASSISTANT, R. N. [address] PRATHER, Evaristo [address] [place], [place] [address] (Wo rk) Social History [...] do you attend sikhism or Never 2021 congregation services? Do you [...] Orthopedic Surgery Deon Herrera M.D. [address] [place], [place] [phone] (Wo rk) documented as of this encounter Visit Diagnoses Not on filedocumented in this encounter Additional Health Concerns Assessment Noted Time PHQ-9 Depression Total Score: 4 08/10/2015 9:06 AM CDT documented as of this encounter
--- OUTSIDE RECORDS SUMMARY | 2022-01-21 08:58 | XMS_ITS | Encounter Summary ---
:[address] [facility] Address [address] [place] [address] Care Team Providers Name Role Phone Unavailable Primary Care Provider Unavailable Encounter Details Date Type Department Care Team Description 08/10/2015 - Hospital Encounter HX RST PMR PT OT Denny Reddy 08/17/2015 L, P.T. [address] [place] [address] Social History Tobacco Use Types Packs/Day Years [...] do you attend amish or Never 2021 anabaptist services? Do you [...] Orthopedic Surgery Deon Herrera M.D. [address] [place], [place] [phone] (Wo rk) documented as of this encounter Visit Diagnoses Not on filedocumented in this encounter Additional Health Concerns Assessment Noted Time PHQ-9 Depression Total Score: 4 08/10/2015 9:06 AM CDT documented as of this encounter
--- OUTSIDE RECORDS SUMMARY | 2022-01-21 08:58 | XMS_ITS | Encounter Summary ---
:1955 Author Organization [facility] Address [address] [place] [address] Care Team Providers Name Role Phone Unavailable Primary Care Provider Unavailable Encounter Details Date Type Department Care Team Description 08/10/2015 - Hospital Encounter HX RST PAIN REHAB Keaton Hael 08/17/2015 PSYCH OP P, Ph.D., L.P. [address] [place] [phone] Social History Tobacco Use Types Packs/Day Years [...] Orthopedic Surgery Deon Herrera M.D. [address] [place], [place] [phone] (Wo rk) documented as of this encounter Visit Diagnoses Not on filedocumented in this encounter Additional Health Concerns Assessment Noted Time PHQ-9 Depression Total Score: 4 08/10/2015 9:06 AM CDT documented as of this encounter
--- OUTSIDE RECORDS SUMMARY | 2022-01-21 08:59 | XMS_ITS | Encounter Summary ---
:[address] [facility] Address [address] [place] [address] Care Team Providers Name Role Phone Unavailable Primary Care Provider Unavailable Encounter Details Date Type Department Care Team Description 08/09/2015 - Hospital Encounter HX RST PAIN REHAB Zuly Frederick , 08/16/2015 PSYCH OP Ph.D., L.P. [address] [place] [address] Social History Tobacco Use Types [...] you attend oriental orthodox or Never 2021 protestant services? Do you [...] Orthopedic Surgery Deon Herrera M.D. [address] [place], [place] [phone] (Wo rk) documented as of this encounter Visit Diagnoses Not on filedocumented in this encounter Additional Health Concerns Assessment Noted Time PHQ-9 Depression Total Score: 6 07/20/2015 8:59 AM CDT documented as of this encounter
--- OUTSIDE RECORDS SUMMARY | 2022-01-21 08:59 | XMS_ITS | Encounter Summary ---
:1955 Author Organization [facility] Address [address] [place] [address] Care Team Providers Name Role Phone Unavailable Primary Care Provider Unavailable Encounter Details Date Type Department Care Team Description 08/08/2015 - Hospital Encounter HX RST PMR PT OT Denny Reddy 08/15/2015 L, P.T. [address] [place] [address] Social History Tobacco Use Types Packs/Day Years [...] do you attend baptist or Never 2021 yarsanism services? Do you [...] Orthopedic Surgery Deon Herrera M.D. [address] [place], [place] [phone] (Wo rk) documented as of this encounter Visit Diagnoses Not on filedocumented in this encounter Additional Health Concerns Assessment Noted Time PHQ-9 Depression Total Score: 6 07/20/2015 8:59 AM CDT documented as of this encounter
--- OUTSIDE RECORDS SUMMARY | 2022-01-21 08:59 | XMS_ITS | Encounter Summary ---
:1955 Author Organization [facility] Address [address] [place] [address] Care Team Providers Name Role Phone Unavailable Primary Care Provider Unavailable Encounter Details Date Type Department Care Team Description 08/04/2015 - Hospital Encounter HX RST PAIN REHAB Vipul Kelly, 08/11/2015 PSYCH OP FEDERAL APPELLATE LAW CLERK, KILN CAR REPAIRER [address] [place] [address] Social History Tobacco Use Types Packs/Day Years [...] do you attend episcopalian or Never 2021 temple services? Do you [...] Orthopedic Surgery Deon Herrera M.D. [address] [place], [place] [phone] (Wo rk) documented as of this encounter Visit Diagnoses Not on filedocumented in this encounter Additional Health Concerns Assessment Noted Time PHQ-9 Depression Total Score: 6 07/20/2015 8:59 AM CDT documented as of this encounter
--- OUTSIDE RECORDS SUMMARY | 2022-01-21 08:59 | XMS_ITS | Encounter Summary ---
:1955 Author Organization [facility] Address [address] [place] [address] Care Team Providers Name Role Phone Unavailable [...] do you attend adventism or Never 2021 hinduism services? Do you [...] Visit Orthopedic Surgery Deon Herrera M.D. [address] [place] [phone] (Wo rk) documented as of this encounter Visit Diagnoses Not on filedocumented in this encounter Additional Health Concerns Assessment Noted Time PHQ-9 Depression Total Score: 6 07/20/2015 8:59 AM CDT documented as of this encounter
--- OUTSIDE RECORDS SUMMARY | 2022-01-21 08:59 | XMS_ITS | Encounter Summary ---
:1955 Author Organization [facility] Address [address] [place] [address] Care Team Providers Name Role Phone Unavailable Primary Care Provider Unavailable Encounter Details Date Type Department Care Team Description 08/09/2015 - Hospital Encounter HX RST PAIN REHAB Kaye Fitzpatrick 08/16/2015 PSYCH OP L, IMPLEMENTATION MANAGER, HEEL CUTTER, R. N. [address] PRATHER, Evaristo [address] [place], [place] [address] (Wo rk) Social History [...] do you attend evangelical or Never 2021 sabianism services? Do you [...] Orthopedic Surgery Deon Herrera M.D. [address] [place], [place] [phone] (Wo rk) documented as of this encounter Visit Diagnoses Not on filedocumented in this encounter Additional Health Concerns Assessment Noted Time PHQ-9 Depression Total Score: 6 07/20/2015 8:59 AM CDT documented as of this encounter
--- OUTSIDE RECORDS SUMMARY | 2022-01-21 08:59 | XMS_ITS | Encounter Summary ---
:1955 Author Organization [facility] Address [address] [place] [address] Care Team Providers Name Role Phone Unavailable Primary Care Provider Unavailable Encounter Details Date Type Department Care Team Description 08/08/2015 - Hospital Encounter HX RST PAIN REHAB Indy Ramos, 08/15/2015 PSYCH OP AUDIO DIRECTOR, DIESEL SCOOP OPERATOR, D.N.P., M.S.N. [address] [place] [phone] Social History Tobacco Use Types Packs/Day Years [...] Orthopedic Surgery Deon Herrera M.D. [address] [place] [phone] (Wo rk) documented as of this encounter Visit Diagnoses Not on filedocumented in this encounter Additional Health Concerns Assessment Noted Time PHQ-9 Depression Total Score: 6 07/20/2015 8:59 AM CDT documented as of this encounter
--- OUTSIDE RECORDS SUMMARY | 2022-01-21 08:59 | XMS_ITS | Encounter Summary ---
:1955 Author Organization [facility] Address [address] [place] [address] Care Team Providers Name Role Phone Unavailable Primary Care Provider Unavailable Encounter Details Date Type Department Care Team Description 08/09/2015 - Hospital Encounter HX RST PAIN REHAB Vipul Kelly, 08/16/2015 PSYCH OP VAULT KEEPER, BIKE TECHNICIAN [address] [place] [address] Social History Tobacco Use Types Packs/Day Years [...] do you attend hindu or Never 2021 rastafari services? Do you [...] Orthopedic Surgery Deon Herrera M.D. [address] [place], [place] [phone] (Wo rk) documented as of this encounter Visit Diagnoses Not on filedocumented in this encounter Additional Health Concerns Assessment Noted Time PHQ-9 Depression Total Score: 6 07/20/2015 8:59 AM CDT documented as of this encounter
--- OUTSIDE RECORDS SUMMARY | 2022-01-21 08:59 | XMS_ITS | Encounter Summary ---
:1955 Author Organization [facility] Address [address] [place] [address] Care Team Providers Name Role Phone Unavailable Primary Care Provider Unavailable Encounter Details Date Type Department Care Team Description 08/04/2015 - Hospital Encounter HX RST PAIN REHAB Antonio Castro 08/11/2015 PSYCH OP J, Ph.D., L.P. [address] [place] [phone] Social History Tobacco Use Types Packs/Day [...] do you attend sabianism or Never 2021 hindu services? Do you [...] Surgery Deon Herrera M.D. [address] [place], [place] [phone] (Wo rk) documented as of this encounter Visit Diagnoses Not on filedocumented in this encounter Additional Health Concerns Assessment Noted Time PHQ-9 Depression Total Score: 6 07/20/2015 8:59 AM CDT documented as of this encounter
--- OUTSIDE RECORDS SUMMARY | 2022-01-21 08:59 | XMS_ITS | Encounter Summary ---
:1955 Author Organization [facility] Address [address] [place] [address] Care Team Providers Name Role Phone Unavailable Primary Care Provider Unavailable Encounter Details Date Type Department Care Team Description 08/09/2015 - Hospital Encounter HX RST PMR PT OT Song Steel , 08/16/2015 P.T.A. [address] [place] [address] Social History Tobacco Use Types Packs/Day Years [...] do you attend congregational or Never 2021 holiness services? Do you [...] Orthopedic Surgery Deon Herrera M.D. [address] [place], [place] [phone] (Wo rk) documented as of this encounter Visit Diagnoses Not on filedocumented in this encounter Additional Health Concerns Assessment Noted Time PHQ-9 Depression Total Score: 6 07/20/2015 8:59 AM CDT documented as of this encounter
--- OUTSIDE RECORDS SUMMARY | 2022-01-21 08:59 | XMS_ITS | Encounter Summary ---
:1955 Author Organization [facility] Address [address] [place] [address] Care Team Providers Name Role Phone Unavailable Primary Care Provider Unavailable Encounter Details Date Type Department Care Team Description 08/08/2015 - Hospital Encounter HX RST PAIN REHAB Zuly Frederick , 08/15/2015 PSYCH OP Ph.D., L.P. [address] [place] [address] Social History Tobacco Use Types [...] do you attend anglican or Never 2021 mormonism services? Do you [...] Orthopedic Surgery Deon Herrera M.D. [address] [place], [place] [phone] (Wo rk) documented as of this encounter Visit Diagnoses Not on filedocumented in this encounter Additional Health Concerns Assessment Noted Time PHQ-9 Depression Total Score: 6 07/20/2015 8:59 AM CDT documented as of this encounter
--- OUTSIDE RECORDS SUMMARY | 2022-01-21 08:59 | XMS_ITS | Encounter Summary ---
:1955 Author Organization [facility] Address [address] [place] [address] Care Team Providers Name Role Phone Unavailable Primary Care Provider Unavailable Encounter Details Date Type Department Care Team Description 08/04/2015 - Hospital Encounter HX RST PMR PT OT Song Steel , 08/11/2015 P.T.A. [address] [place] [address] Social History Tobacco Use Types Packs/Day Years [...] do you attend adventism or Never 2021 latter-day services? Do you belong to any clubs [...] Orthopedic Surgery Deon Herrera M.D. [address] [place], [place] [phone] (Wo rk) documented as of this encounter Visit Diagnoses Not on filedocumented in this encounter Additional Health Concerns Assessment Noted Time PHQ-9 Depression Total Score: 6 07/20/2015 8:59 AM CDT documented as of this encounter
--- OUTSIDE RECORDS SUMMARY | 2022-01-21 08:59 | XMS_ITS | Encounter Summary ---
:1955 Author Organization [facility] Address [address] [place] [address] Care Team Providers Name Role Phone Unavailable Primary Care Provider Unavailable Encounter Details Date Type Department Care Team Description 08/04/2015 - Hospital Encounter HX RST PAIN REHAB Kaye Fitzpatrick 08/11/2015 PSYCH OP L, BUILDING RIGGER, HAZARDOUS MATERIALS TANKER DRIVER, R. N. [address] PRATHER, Evaristo [address] [place], [place] [address] (Wo rk) Social History [...] do you attend scientology or Never 2021 restoration services? Do you [...] Orthopedic Surgery Deon Herrera M.D. [address] [place], [place] [phone] (Wo rk) documented as of this encounter Visit Diagnoses Not on filedocumented in this encounter Additional Health Concerns Assessment Noted Time PHQ-9 Depression Total Score: 6 07/20/2015 8:59 AM CDT documented as of this encounter
--- OUTSIDE RECORDS SUMMARY | 2022-01-21 08:59 | XMS_ITS | Encounter Summary ---
:1955 Author Organization [facility] Address [address] [place] [address] Care Team Providers Name Role Phone Unavailable Primary Care Provider Unavailable Encounter Details Date Type Department Care Team Description 08/08/2015 - Hospital Encounter HX RST PAIN REHAB Jesse, 08/15/2015 PSYCH OP Colleen Polk M.D., Ph.D. [address] [place] [phone] Social History Tobacco Use Types Packs/Day Years [...] do you attend lutheran or Never 2021 rastafari services? Do you [...] Surgery Deon Herrera M.D. [address] [place], [place] [phone] (Wo rk) documented as of this encounter Visit Diagnoses Not on filedocumented in this encounter Additional Health Concerns Assessment Noted Time PHQ-9 Depression Total Score: 6 07/20/2015 8:59 AM CDT documented as of this encounter
--- OUTSIDE RECORDS SUMMARY | 2022-01-21 08:59 | XMS_ITS | Encounter Summary ---
:1955 Author Organization [facility] Address [address] [place] [address] Care Team Providers Name Role Phone Unavailable Primary Care Provider Unavailable Encounter Details Date Type Department Care Team Description 08/09/2015 - Hospital Encounter HX RST PAIN REHAB Kaye Fitzpatrick 08/16/2015 PSYCH OP L, PSYCHOMETRICIAN, TURNING MACHINE OPERATOR, R. N. [address] PRATHER, Evaristo [address] [place], [place] [address] (Wo rk) Social History [...] do you attend voodoo or Never 2021 baptism services? Do you [...] Orthopedic Surgery Deon Herrera M.D. [address] [place], [place] [phone] (Wo rk) documented as of this encounter Visit Diagnoses Not on filedocumented in this encounter Additional Health Concerns Assessment Noted Time PHQ-9 Depression Total Score: 6 07/20/2015 8:59 AM CDT documented as of this encounter
--- OUTSIDE RECORDS SUMMARY | 2022-01-21 08:59 | XMS_ITS | Encounter Summary ---
:1955 Author Organization [facility] Address [address] [place] [address] Care Team Providers Name Role Phone Unavailable Primary Care Provider Unavailable Encounter Details Date Type Department Care Team Description 08/08/2015 - Hospital Encounter HX RST PMR PT OT Song Steel , 08/15/2015 P.T.A. [address] [place] [address] Social History Tobacco Use Types Packs/Day Years [...] do you attend restorationism or Never 2021 hindu services? Do you [...] Orthopedic Surgery Deon Herrera M.D. [address] [place], [place] [phone] (Wo rk) documented as of this encounter Visit Diagnoses Not on filedocumented in this encounter Additional Health Concerns Assessment Noted Time PHQ-9 Depression Total Score: 6 07/20/2015 8:59 AM CDT documented as of this encounter
--- OUTSIDE RECORDS SUMMARY | 2022-01-21 08:59 | XMS_ITS | Encounter Summary ---
:1955 Author Organization [facility] Address [address] [place] [address] Care Team Providers Name Role Phone Unavailable Primary Care Provider Unavailable Encounter Details Date Type Department Care Team Description 08/08/2015 - Hospital Encounter HX RST PAIN REHAB Vipul Kelly, 08/15/2015 PSYCH OP REVERBERATORY FURNACE OPERATOR, CANDY SUPERVISOR [address] [place] [address] Social History Tobacco Use Types Packs/Day Years [...] Orthopedic Surgery Deon Herrera M.D. [address] [place], [place] [phone] (Wo rk) documented as of this encounter Visit Diagnoses Not on filedocumented in this encounter Additional Health Concerns Assessment Noted Time PHQ-9 Depression Total Score: 6 07/20/2015 8:59 AM CDT documented as of this encounter
--- OUTSIDE RECORDS SUMMARY | 2022-01-21 08:59 | XMS_ITS | Encounter Summary ---
:1955 Author Organization [facility] Address [address] [place] [address] Care Team Providers Name Role Phone Unavailable Primary Care Provider Unavailable Encounter Details Date Type Department Care Team Description 08/08/2015 - Hospital Encounter HX RST PAIN REHAB Vipul Kelyl, 08/15/2015 PSYCH OP BOAT RIDE OPERATOR, CRIME SCENE EVIDENCE TECHNICIAN [address] [place] [address] Social History Tobacco Use Types Packs/Day Years [...] do you attend hinduism or Never 2021 oriental orthodox services? Do [...] Orthopedic Surgery Deon Herrera M.D. [address] [place], [place] [phone] (Wo rk) documented as of this encounter Visit Diagnoses Not on filedocumented in this encounter Additional Health Concerns Assessment Noted Time PHQ-9 Depression Total Score: 6 07/20/2015 8:59 AM CDT documented as of this encounter
--- OUTSIDE RECORDS SUMMARY | 2022-01-21 08:59 | XMS_ITS | Encounter Summary ---
:1955 Author Organization [facility] Address [address] [place] [address] Care Team Providers Name Role Phone Unavailable [...] do you attend adventism or Never 2021 sikhism services? Do you [...] Visit Orthopedic Surgery Deon Herrera M.D. [address] [place] [phone] (Wo rk) documented as of this encounter Visit Diagnoses Not on filedocumented in this encounter Additional Health Concerns Assessment Noted Time PHQ-9 Depression Total Score: 6 07/20/2015 8:59 AM CDT documented as of this encounter
--- OUTSIDE RECORDS SUMMARY | 2022-01-21 08:59 | XMS_ITS | Encounter Summary ---
:1955 Author Organization [facility] Address [address] [place] [address] Care Team Providers Name Role Phone Unavailable Primary Care Provider Unavailable Encounter Details Date Type Department Care Team Description 08/04/2015 - Hospital Encounter HX RST PMR PT OT Clare Clay , 08/11/2015 O.T. [address] [facility] [address] [place], [place] [address] (Wo rk) Social History [...] do you attend baptist or Never 2021 zoroastrianism services? Do you [...] Orthopedic Surgery Deon Herrera M.D. [address] [place], [place] [phone] (Wo rk) documented as of this encounter Visit Diagnoses Not on filedocumented in this encounter Additional Health Concerns Assessment Noted Time PHQ-9 Depression Total Score: 6 07/20/2015 8:59 AM CDT documented as of this encounter
--- OUTSIDE RECORDS SUMMARY | 2022-01-21 09:00 | XMS_ITS | Encounter Summary ---
:1955 Author Organization [facility] Address [address] [place] [address] Care Team Providers Name Role Phone Unavailable Primary Care Provider Unavailable Encounter Details Date Type Department Care Team Description 08/03/2015 - Hospital Encounter HX RST PAIN REHAB Neeta Fitzpatrickzabeth 08/10/2015 PSYCH OP L, HATCHERY MAN, BUCK SWAMPER, R. N. [address] PRATHER, Evaristo [address] [place], [place] [...] do you attend zoroastrian or Never 2021 sabianism services? Do you [...] Orthopedic Surgery Deon Herrera M.D. [address] [place], [place] [phone] (Wo rk) documented as of this encounter Visit Diagnoses Not on filedocumented in this encounter Additional Health Concerns Assessment Noted Time PHQ-9 Depression Total Score: 6 07/20/2015 8:59 AM CDT documented as of this encounter
--- OUTSIDE RECORDS SUMMARY | 2022-01-21 09:00 | XMS_ITS | Encounter Summary ---
:1955 Author Organization [facility] Address [address] [place] [address] Care Team Providers Name Role Phone Unavailable Primary Care Provider Unavailable Encounter Details Date Type Department Care Team Description 08/03/2015 - Hospital Encounter HX RST PAIN REHAB Keaton Hale 08/10/2015 PSYCH OP P, Ph.D., L.P. [address] [place] [phone] Social History Tobacco Use Types Packs/Day Years [...] do you attend baptism or Never 2021 baptism services? Do you [...] Orthopedic Surgery Deon Herrera M.D. [address] [place], [place] [phone] (Wo rk) documented as of this encounter Visit Diagnoses Not on filedocumented in this encounter Additional Health Concerns Assessment Noted Time PHQ-9 Depression Total Score: 6 07/20/2015 8:59 AM CDT documented as of this encounter
--- OUTSIDE RECORDS SUMMARY | 2022-01-21 09:00 | XMS_ITS | Encounter Summary ---
:1955 Author Organization [facility] Address [address] [place] [address] Care Team Providers Name Role Phone Unavailable Primary Care Provider Unavailable Encounter Details Date Type Department Care Team Description 08/01/2015 - Hospital Encounter HX RST PMR PT OT Song Steel , 08/08/2015 P.T.A. [address] [place] [address] Social History Tobacco Use Types Packs/Day Years [...] do you attend hinduism or Never 2021 bahai services? Do you [...] Orthopedic Surgery Deon Herrera M.D. [address] [place], [place] [phone] (Wo rk) documented as of this encounter Visit Diagnoses Not on filedocumented in this encounter Additional Health Concerns Assessment Noted Time PHQ-9 Depression Total Score: 6 07/20/2015 8:59 AM CDT documented as of this encounter
--- OUTSIDE RECORDS SUMMARY | 2022-01-21 09:00 | XMS_ITS | Encounter Summary ---
:1955 Author Organization [facility] Address [address] [place] [address] Care Team Providers Name Role Phone Unavailable Primary Care Provider Unavailable Encounter Details Date Type Department Care Team Description 08/02/2015 - Hospital Encounter HX RST PAIN REHAB Zuly Frederick , 08/09/2015 PSYCH OP Ph.D., L.P. [address] [place] [address] Social History Tobacco Use Types [...] do you attend restorationist or Never 2021 advent services? Do you [...] Orthopedic Surgery Deon Herrera M.D. [address] [place], [place] [phone] (Wo rk) documented as of this encounter Visit Diagnoses Not on filedocumented in this encounter Additional Health Concerns Assessment Noted Time PHQ-9 Depression Total Score: 6 07/20/2015 8:59 AM CDT documented as of this encounter
--- OUTSIDE RECORDS SUMMARY | 2022-01-21 09:00 | XMS_ITS | Encounter Summary ---
:1955 Author Organization [facility] Address [address] [place] [address] Care Team Providers Name Role Phone Unavailable [...] do you attend lutheran or Never 2021 scientology services? Do you [...] Visit Orthopedic Surgery Deon Herrera M.D. [address] [place] [phone] (Wo rk) documented as of this encounter Visit Diagnoses Not on filedocumented in this encounter Additional Health Concerns Assessment Noted Time PHQ-9 Depression Total Score: 6 07/20/2015 8:59 AM CDT documented as of this encounter
--- OUTSIDE RECORDS SUMMARY | 2022-01-21 09:00 | XMS_ITS | Encounter Summary ---
:1955 Author Organization [facility] Address [address] [place] [address] Care Team Providers Name Role Phone Unavailable Primary Care Provider Unavailable Encounter Details Date Type Department Care Team Description 08/04/2015 - Hospital Encounter HX RST PAIN REHAB Kaye Fitzpatrick 08/11/2015 PSYCH OP L, LONGITUDINAL FLOAT OPERATOR, MACHINE SETTER AND REPAIRER, R. N. [address] PRATHER, Evaristo [address] [place], [place] [address] (Wo rk) Social History [...] do you attend adventist or Never 2021 oriental orthodox services? Do [...] Orthopedic Surgery Deon Herrera M.D. [address] [place], [place] [phone] (Wo rk) documented as of this encounter Visit Diagnoses Not on filedocumented in this encounter Additional Health Concerns Assessment Noted Time PHQ-9 Depression Total Score: 6 07/20/2015 8:59 AM CDT documented as of this encounter
--- OUTSIDE RECORDS SUMMARY | 2022-01-21 09:00 | XMS_ITS | Encounter Summary ---
:1955 Author Organization [facility] Address [address] [place] [address] Care Team Providers Name Role Phone Unavailable [...] Visit Orthopedic Surgery Deon Herrera M.D. [address] [place] [phone] (Wo rk) documented as of this encounter Visit Diagnoses Not on filedocumented in this encounter Additional Health Concerns Assessment Noted Time PHQ-9 Depression Total Score: 6 07/20/2015 8:59 AM CDT documented as of this encounter
--- OUTSIDE RECORDS SUMMARY | 2022-01-21 09:00 | XMS_ITS | Encounter Summary ---
:1955 Author Organization [facility] Address [address] [place] [address] Care Team Providers Name Role Phone Unavailable Primary Care Provider Unavailable Encounter Details Date Type Department Care Team Description 08/02/2015 - Hospital Encounter HX RST PAIN REHAB Kaye Fitzpatrick 08/09/2015 PSYCH OP L, COORDINATE MEASURING MACHINE OPERATOR, PLYWOOD STOCK GRADER, R. N. [address] PRATHER, Evaristo 201 [place], [place] [address] (Wo rk) Social History [...] do you attend zoroastrianism or Never 2021 yarsani services? Do you [...] Orthopedic Surgery Deon Herrera M.D. [address] [place], [place] [phone] (Wo rk) documented as of this encounter Visit Diagnoses Not on filedocumented in this encounter Additional Health Concerns Assessment Noted Time PHQ-9 Depression Total Score: 6 07/20/2015 8:59 AM CDT documented as of this encounter
--- OUTSIDE RECORDS SUMMARY | 2022-01-21 09:00 | XMS_ITS | Encounter Summary ---
:1955 Author Organization [facility] Address [address] [place] [address] Care Team Providers Name Role Phone Unavailable Primary Care Provider Unavailable Encounter Details Date Type Department Care Team Description 08/02/2015 - Hospital Encounter HX RST PAIN REHAB Keaton Hale 08/09/2015 PSYCH OP P, Ph.D., L.P. [address] [place] [address] [phone] Social History Tobacco Use Types Packs/Day Years [...] do you attend sikhism or Never 2021 christianity services? Do you [...] Orthopedic Surgery Deon Herrera M.D. [address] [place], [place] [phone] (Wo rk) documented as of this encounter Visit Diagnoses Not on filedocumented in this encounter Additional Health Concerns Assessment Noted Time PHQ-9 Depression Total Score: 6 07/20/2015 8:59 AM CDT documented as of this encounter
--- OUTSIDE RECORDS SUMMARY | 2022-01-21 09:00 | XMS_ITS | Encounter Summary ---
:1955 Author Organization [facility] Address [address] [place] [address] Care Team Providers Name Role Phone Unavailable Primary Care Provider Unavailable Encounter Details Date Type Department Care Team Description 08/03/2015 - Hospital Encounter HX RST PAIN REHAB Neeta Fitzpatrickzabeth 08/10/2015 PSYCH OP L, COMPUTATIONAL THEORY SCIENTIST, RAIL LOADER, R. N. [address] PRATHER, Evaristo 201 [place], [place] [address] (Wo rk) Social History [...] do you attend sabianist or Never 2021 druze services? Do you [...] Orthopedic Surgery Deon Herrera M.D. [address] [place], [place] [phone] (Wo rk) documented as of this encounter Visit Diagnoses Not on filedocumented in this encounter Additional Health Concerns Assessment Noted Time PHQ-9 Depression Total Score: 6 07/20/2015 8:59 AM CDT documented as of this encounter
--- OUTSIDE RECORDS SUMMARY | 2022-01-21 09:00 | XMS_ITS | Encounter Summary ---
:1955 Author Organization [facility] Address [address] [place] [address] Care Team Providers Name Role Phone Unavailable Primary Care Provider Unavailable Encounter Details Date Type Department Care Team Description 08/01/2015 - Hospital Encounter HX RST PAIN REHAB Kaye Fitzpatrick 08/08/2015 PSYCH OP L, AUTOGLAZIER, CREDIT COMPLIANCE OFFICER, R. N. [address] [facility] [address] PRATHER, Evaristo 201 [place], [place] [address] (Wo rk) Social History [...] do you attend yarsani or Never 2021 temple services? Do you [...] Orthopedic Surgery Deon Herrera M.D. [address] [place], [place] [phone] (Wo rk) documented as of this encounter Visit Diagnoses Not on filedocumented in this encounter Additional Health Concerns Assessment Noted Time PHQ-9 Depression Total Score: 6 07/20/2015 8:59 AM CDT documented as of this encounter
--- OUTSIDE RECORDS SUMMARY | 2022-01-21 09:00 | XMS_ITS | Encounter Summary ---
:1955 Author Organization [facility] Address [address] [place] [address] Care Team Providers Name Role Phone Unavailable Primary Care Provider Unavailable Encounter Details Date Type Department Care Team Description 08/02/2015 - Hospital Encounter HX RST PAIN REHAB Kaye Fitzpatrick 08/09/2015 PSYCH OP L, STRAW HAT WASHER OPERATOR, TAMPING MACHINE OPERATOR ROAD FORMS, R. N. [address] [facility] PRATHER, Evaristo 201 [place], [place] [address] (Wo rk) Social History [...] Orthopedic Surgery Deon Herrera M.D. [address] [place], [place] [phone] (Wo rk) documented as of this encounter Visit Diagnoses Not on filedocumented in this encounter Additional Health Concerns Assessment Noted Time PHQ-9 Depression Total Score: 6 07/20/2015 8:59 AM CDT documented as of this encounter
--- OUTSIDE RECORDS SUMMARY | 2022-01-21 09:00 | XMS_ITS | Encounter Summary ---
:1955 Author Organization [facility] Address [address] [place] [address] Care Team Providers Name Role Phone Unavailable Primary Care Provider Unavailable Encounter Details Date Type Department Care Team Description 08/03/2015 - Hospital Encounter HX RST PAIN REHAB Neeta Fitzpatrickzabeth 08/10/2015 PSYCH OP L, INFORMATION SECURITY SYSTEMS INSTRUCTOR, LEAD SEWAGE PLANT OPERATOR, R. N. [address] [facility] [address] PRATHER, Evaristo 201 [place], [place] [address] (Wo rk) Social History [...] do you attend confucianist or Never 2021 yarsanism services? Do you [...] Orthopedic Surgery Deon Herrera M.D. [address] [place], [place] [phone] (Wo rk) documented as of this encounter Visit Diagnoses Not on filedocumented in this encounter Additional Health Concerns Assessment Noted Time PHQ-9 Depression Total Score: 6 07/20/2015 8:59 AM CDT documented as of this encounter
--- OUTSIDE RECORDS SUMMARY | 2022-01-21 09:00 | XMS_ITS | Encounter Summary ---
:1955 Author Organization [facility] Address [address] [place] [address] Care Team Providers Name Role Phone Unavailable Primary Care Provider Unavailable Encounter Details Date Type Department Care Team Description 08/02/2015 - Hospital Encounter HX RST PMR PT OT Denny Reddy 08/09/2015 L, P.T. [address] [place] [phone] Social History Tobacco Use Types Packs/Day Years [...] you attend oriental orthodox or Never 2021 baptism services? Do you [...] Orthopedic Surgery Deon Herrera M.D. [address] [place], [place] [phone] (Wo rk) documented as of this encounter Visit Diagnoses Not on filedocumented in this encounter Additional Health Concerns Assessment Noted Time PHQ-9 Depression Total Score: 6 07/20/2015 8:59 AM CDT documented as of this encounter
--- OUTSIDE RECORDS SUMMARY | 2022-01-21 09:00 | XMS_ITS | Encounter Summary ---
:1955 Author Organization [facility] Address [address] [place] [address] Care Team Providers Name Role Phone Unavailable Primary Care Provider Unavailable Encounter Details Date Type Department Care Team Description 08/03/2015 - Hospital Encounter HX RST PAIN REHAB Antonio Castro 08/10/2015 PSYCH OP J, Ph.D., L.P. [address] [place] [phone] Social History Tobacco Use Types Packs/Day [...] you attend roman catholic or Never 2021 lutheran services? Do you [...] Orthopedic Surgery Deon Herrera M.D. [address] [place], [place] [phone] (Wo rk) documented as of this encounter Visit Diagnoses Not on filedocumented in this encounter Additional Health Concerns Assessment Noted Time PHQ-9 Depression Total Score: 6 07/20/2015 8:59 AM CDT documented as of this encounter
--- OUTSIDE RECORDS SUMMARY | 2022-01-21 09:00 | XMS_ITS | Encounter Summary ---
:1955 Author Organization [facility] Address [address] [place] [address] Care Team Providers Name Role Phone Unavailable Primary Care Provider Unavailable Encounter Details Date Type Department Care Team Description 08/02/2015 - Hospital Encounter HX RST PAIN REHAB Kaye Fitzpatrick 08/09/2015 PSYCH OP L, TECHNICAL SOLUTIONS CONSULTANT, BREAD DUMPER, R. N. [address] PRATHER, Evaristo 201 [place], [place] [address] (Wo rk) Social History [...] do you attend yazidism or Never 2021 yarsani services? Do you [...] Orthopedic Surgery Deon Herrera M.D. [address] [place], [place] [phone] (Wo rk) documented as of this encounter Visit Diagnoses Not on filedocumented in this encounter Additional Health Concerns Assessment Noted Time PHQ-9 Depression Total Score: 6 07/20/2015 8:59 AM CDT documented as of this encounter
--- OUTSIDE RECORDS SUMMARY | 2022-01-21 09:00 | XMS_ITS | Encounter Summary ---
:1955 Author Organization [facility] Address [address] [place] [address] Care Team Providers Name Role Phone Unavailable Primary Care Provider Unavailable Encounter Details Date Type Department Care Team Description 08/03/2015 - Hospital Encounter HX RST PMR PT OT Rona Zamuido , 08/10/2015 P.T. [address] [place] [address] Social History Tobacco Use Types Packs/Day Years [...] you attend jehovah's witness or Never 2021 jewish services? Do you [...] Orthopedic Surgery Deon Herrera M.D. [address] [place], [place] [phone] (Wo rk) documented as of this encounter Visit Diagnoses Not on filedocumented in this encounter Additional Health Concerns Assessment Noted Time PHQ-9 Depression Total Score: 6 07/20/2015 8:59 AM CDT documented as of this encounter
--- OUTSIDE RECORDS SUMMARY | 2022-01-21 09:01 | XMS_ITS | Encounter Summary ---
:1955 Author Organization [facility] Address [address] [place] [address] Care Team Providers Name Role Phone Unavailable Primary Care Provider Unavailable Encounter Details Date Type Department Care Team Description 07/28/2015 - Hospital Encounter HX RST PMR PT OT Denny Reddy 08/04/2015 L, P.T. [address] [place] [address] Social History Tobacco Use Types Packs/Day Years [...] you attend jehovah's witness or Never 2021 tenriism services? Do you [...] Orthopedic Surgery Deon Herrera M.D. [address] [place], [place] [phone] (Wo rk) documented as of this encounter Visit Diagnoses Not on filedocumented in this encounter Additional Health Concerns Assessment Noted Time PHQ-9 Depression Total Score: 6 07/20/2015 8:59 AM CDT documented as of this encounter
--- OUTSIDE RECORDS SUMMARY | 2022-01-21 09:01 | XMS_ITS | Encounter Summary ---
:1955 Author Organization [facility] Address [address] [place] [address] Care Team Providers Name Role Phone Unavailable Primary Care Provider Unavailable Encounter Details Date Type Department Care Team Description 08/01/2015 - Hospital Encounter HX RST PAIN REHAB Kaye Fitzpatrick 08/08/2015 PSYCH OP L, CUT IN WORKER, GARDEN MACHINERY MECHANIC, R. N. [address] [facility] [address] PRATHER, Evaristo 201 [place], [place] [address] (Wo rk) Social History [...] do you attend sabianist or Never 2021 gnosticism services? Do you [...] Orthopedic Surgery Deon Herrera M.D. [address] [place], [place] [phone] (Wo rk) documented as of this encounter Visit Diagnoses Not on filedocumented in this encounter Additional Health Concerns Assessment Noted Time PHQ-9 Depression Total Score: 6 07/20/2015 8:59 AM CDT documented as of this encounter
--- OUTSIDE RECORDS SUMMARY | 2022-01-21 09:01 | XMS_ITS | Encounter Summary ---
:1955 Author Organization [facility] Address [address] [place] [address] Care Team Providers Name Role Phone Unavailable Primary Care Provider Unavailable Encounter Details Date Type Department Care Team Description 07/28/2015 - Hospital Encounter HX RST PAIN REHAB Antonio Castro 08/04/2015 PSYCH OP J, Ph.D., L.P. [address] [place] [phone] Social History Tobacco Use Types Packs/Day Years [...] do you attend presybeterian or Never 2021 presybeterian services? Do you [...] Orthopedic Surgery Deon Herrera M.D. [address] [place], [place] [phone] (Wo rk) documented as of this encounter Visit Diagnoses Not on filedocumented in this encounter Additional Health Concerns Assessment Noted Time PHQ-9 Depression Total Score: 6 07/20/2015 8:59 AM CDT documented as of this encounter
--- OUTSIDE RECORDS SUMMARY | 2022-01-21 09:01 | XMS_ITS | Encounter Summary ---
:1955 Author Organization [facility] Address [address] [place] [address] Care Team Providers Name Role Phone Unavailable Primary Care Provider Unavailable Encounter Details Date Type Department Care Team Description 07/28/2015 - Hospital Encounter HX RST PAIN REHAB Keaton Hale 08/04/2015 PSYCH OP P, Ph.D., L.P. [address] [place] [phone] Social History Tobacco Use Types Packs/Day Years [...] do you attend jew or Never 2021 church services? Do you [...] Orthopedic Surgery Deon Herrera M.D. [address] [place], [place] [phone] (Wo rk) documented as of this encounter Visit Diagnoses Not on filedocumented in this encounter Additional Health Concerns Assessment Noted Time PHQ-9 Depression Total Score: 6 07/20/2015 8:59 AM CDT documented as of this encounter
--- OUTSIDE RECORDS SUMMARY | 2022-01-21 09:01 | XMS_ITS | Encounter Summary ---
:1955 Author Organization [facility] Address [address] [place] [address] Care Team Providers Name Role Phone Unavailable Primary Care Provider Unavailable Encounter Details Date Type Department Care Team Description 08/01/2015 - Hospital Encounter HX RST PAIN REHAB Jesse, 08/08/2015 PSYCH OP Colleen Polk M.D., Ph.D. [address] [place] [phone] Social History Tobacco Use Types Packs/Day Years [...] you attend latter day or Never 2021 protestant services? Do you [...] Surgery Deon Herrera M.D. [address] [place], [place] [phone] (Wo rk) documented as of this encounter Visit Diagnoses Not on filedocumented in this encounter Additional Health Concerns Assessment Noted Time PHQ-9 Depression Total Score: 6 07/20/2015 8:59 AM CDT documented as of this encounter
--- OUTSIDE RECORDS SUMMARY | 2022-01-21 09:01 | XMS_ITS | Encounter Summary ---
:1955 Author Organization [facility] Address [address] [place] [address] Care Team Providers Name Role Phone Unavailable Primary Care Provider Unavailable Encounter Details Date Type Department Care Team Description 07/31/2015 - Hospital Encounter HX RST PAIN REHAB Neeta Fitzpatrickzabeth 08/07/2015 PSYCH OP L, COMMUNITY ENGAGEMENT LEADER, WEATHERIZATION COORDINATOR, R. N. [address] [facility] [facility] [address] [facility] [address] PRATHER, Evaristo 201 [place], [place] [address] (Wo rk) Social History [...] do you attend adventism or Never 2021 hoahaoism services? Do you [...] Orthopedic Surgery Deon Herrera M.D. [address] [place], [place] [phone] (Wo rk) documented as of this encounter Visit Diagnoses Not on filedocumented in this encounter Additional Health Concerns Assessment Noted Time PHQ-9 Depression Total Score: 6 07/20/2015 8:59 AM CDT documented as of this encounter
--- OUTSIDE RECORDS SUMMARY | 2022-01-21 09:01 | XMS_ITS | Encounter Summary ---
:1955 Author Organization [facility] Address [address] [place] [address] Care Team Providers Name Role Phone Unavailable Primary Care Provider Unavailable Encounter Details Date Type Department Care Team Description 07/31/2015 - Hospital Encounter HX RST PAIN REHAB Neeta Fitzpatrickzabeth 08/07/2015 PSYCH OP L, WIRELESS FIELD TECHNICIAN, PHOTO MANAGER, R. N. [address] PRATHER, Evaristo 201 [place], [place] [address] (Wo rk) Social History [...] do you attend holiness or Never 2021 religion services? Do you [...] Orthopedic Surgery Deon Herrera M.D. [address] [place], [place] [phone] (Wo rk) documented as of this encounter Visit Diagnoses Not on filedocumented in this encounter Additional Health Concerns Assessment Noted Time PHQ-9 Depression Total Score: 6 07/20/2015 8:59 AM CDT documented as of this encounter
--- OUTSIDE RECORDS SUMMARY | 2022-01-21 09:01 | XMS_ITS | Encounter Summary ---
:1955 Author Organization [facility] Address [address] [place] [address] Care Team Providers Name Role Phone Unavailable Primary Care Provider Unavailable Encounter Details Date Type Department Care Team Description 08/01/2015 - Hospital Encounter HX RST PAIN REHAB Kaye Fitzpatrick 08/08/2015 PSYCH OP L, REMANUFACTURING TECHNICIAN, LOCATION AND MEASUREMENT TECHNICIAN, R. N. [address] PRATHER, Evaristo 201 [place], [place] [address] (Wo rk) Social History [...] do you attend gnosticism or Never 2021 anabaptism services? Do you [...] Orthopedic Surgery Deon Herrera M.D. [address] [place], [place] [phone] (Wo rk) documented as of this encounter Visit Diagnoses Not on filedocumented in this encounter Additional Health Concerns Assessment Noted Time PHQ-9 Depression Total Score: 6 07/20/2015 8:59 AM CDT documented as of this encounter
--- OUTSIDE RECORDS SUMMARY | 2022-01-21 09:01 | XMS_ITS | Encounter Summary ---
:1955 Author Organization [facility] Address [address] [place] [address] Care Team Providers Name Role Phone Unavailable Primary Care Provider Unavailable Encounter Details Date Type Department Care Team Description 07/31/2015 - Hospital Encounter HX RST PMR PT OT Denny Reddy 08/07/2015 L, P.T. [address] [place] [address] Social History Tobacco Use Types Packs/Day Years [...] do you attend holiness or Never 2021 latter-day services? Do you [...] Orthopedic Surgery Deon Herrera M.D. [address] [place], [place] [phone] (Wo rk) documented as of this encounter Visit Diagnoses Not on filedocumented in this encounter Additional Health Concerns Assessment Noted Time PHQ-9 Depression Total Score: 6 07/20/2015 8:59 AM CDT documented as of this encounter
--- OUTSIDE RECORDS SUMMARY | 2022-01-21 09:01 | XMS_ITS | Encounter Summary ---
:1955 Author Organization [facility] Address [address] [place] [address] Care Team Providers Name Role Phone Unavailable [...] do you attend zoroastrianism or Never 2021 gnosticism services? Do you [...] Visit Orthopedic Surgery Deon Herrera M.D. [address] [place] [phone] (Wo rk) documented as of this encounter Visit Diagnoses Not on filedocumented in this encounter Additional Health Concerns Assessment Noted Time PHQ-9 Depression Total Score: 6 07/20/2015 8:59 AM CDT documented as of this encounter
--- OUTSIDE RECORDS SUMMARY | 2022-01-21 09:01 | XMS_ITS | Encounter Summary ---
:1955 Author Organization [facility] Address [address] [place] [address] Care Team Providers Name Role Phone Unavailable Primary Care Provider Unavailable Encounter Details Date Type Department Care Team Description 07/31/2015 - Hospital Encounter HX RST PAIN REHAB Neeta Fitzpatrickzabeth 08/07/2015 PSYCH OP L, TESTING DIRECTOR, MILL ORDER SCHEDULER, R. N. [address] [facility] [facility] [address] PRATHER, Evaristo 201 [place], [place] [address] (Wo rk) Social History [...] do you attend synagogue or Never 2021 yazidi services? Do you [...] Orthopedic Surgery Deon Herrera M.D. [address] [place], [place] [phone] (Wo rk) documented as of this encounter Visit Diagnoses Not on filedocumented in this encounter Additional Health Concerns Assessment Noted Time PHQ-9 Depression Total Score: 6 07/20/2015 8:59 AM CDT documented as of this encounter
--- OUTSIDE RECORDS SUMMARY | 2022-01-21 09:01 | XMS_ITS | Encounter Summary ---
:1955 Author Organization [facility] Address [address] [place] [address] Care Team Providers Name Role Phone Unavailable [...] do you attend worship or Never 2021 mosque services? Do you [...] Visit Orthopedic Surgery Deon Herrera M.D. [address] [place] [phone] (Wo rk) documented as of this encounter Visit Diagnoses Not on filedocumented in this encounter Additional Health Concerns Assessment Noted Time PHQ-9 Depression Total Score: 6 07/20/2015 8:59 AM CDT documented as of this encounter
--- OUTSIDE RECORDS SUMMARY | 2022-01-21 09:01 | XMS_ITS | Encounter Summary ---
:1955 Author Organization [facility] Address [address] [place] [address] Care Team Providers Name Role Phone Unavailable Primary Care Provider Unavailable Encounter Details Date Type Department Care Team Description 08/01/2015 - Hospital Encounter HX RST PAIN REHAB Keaton Hale 08/08/2015 PSYCH OP P, Ph.D., L.P. [address] [place] [phone] Social History Tobacco Use Types Packs/Day Years [...] do you attend episcopalian or Never 2021 restoration services? Do you [...] Orthopedic Surgery Deon Herrera M.D. [address] [place], [place] [phone] (Wo rk) documented as of this encounter Visit Diagnoses Not on filedocumented in this encounter Additional Health Concerns Assessment Noted Time PHQ-9 Depression Total Score: 6 07/20/2015 8:59 AM CDT documented as of this encounter
--- OUTSIDE RECORDS SUMMARY | 2022-01-21 09:01 | XMS_ITS | Encounter Summary ---
:1955 Author Organization [facility] Address [address] [place] [address] Care Team Providers Name Role Phone Unavailable Primary Care Provider Unavailable Encounter Details Date Type Department Care Team Description 07/31/2015 - Hospital Encounter HX RST PMR PT OT Jones Hernandez, 08/07/2015 O.T. [address] [place] [address] Social History Tobacco Use Types Packs/Day Years [...] do you attend mormonism or Never 2021 jewish services? Do you [...] Orthopedic Surgery Deon Herrera M.D. [address] [place], [place] [phone] (Wo rk) documented as of this encounter Visit Diagnoses Not on filedocumented in this encounter Additional Health Concerns Assessment Noted Time PHQ-9 Depression Total Score: 6 07/20/2015 8:59 AM CDT documented as of this encounter
--- OUTSIDE RECORDS SUMMARY | 2022-01-21 09:01 | XMS_ITS | Encounter Summary ---
:1955 Author Organization [facility] Address [address] [place] [address] Care Team Providers Name Role Phone Unavailable Primary Care Provider Unavailable Encounter Details Date Type Department Care Team Description 07/31/2015 - Hospital Encounter HX RST PAIN REHAB Keaton Hale 08/07/2015 PSYCH OP P, Ph.D., L.P. [address] [place] [phone] Social History Tobacco Use Types Packs/Day Years [...] do you attend scientology or Never 2021 episcopal services? Do you [...] Orthopedic Surgery Deon Herrera M.D. [address] [place], [place] [phone] (Wo rk) documented as of this encounter Visit Diagnoses Not on filedocumented in this encounter Additional Health Concerns Assessment Noted Time PHQ-9 Depression Total Score: 6 07/20/2015 8:59 AM CDT documented as of this encounter
--- OUTSIDE RECORDS SUMMARY | 2022-01-21 09:01 | XMS_ITS | Encounter Summary ---
:1955 Author Organization [facility] Address [address] [place] [address] Care Team Providers Name Role Phone Unavailable Primary Care Provider Unavailable Encounter Details Date Type Department Care Team Description 07/31/2015 - Hospital Encounter HX RST PAIN REHAB Keaton Hale 08/07/2015 PSYCH OP P, Ph.D., L.P. [address] [place] [phone] Social History Tobacco Use Types Packs/Day Years [...] do you attend shinto or Never 2021 judaism services? Do you [...] Orthopedic Surgery Deon Herrera M.D. [address] [place], [place] [phone] (Wo rk) documented as of this encounter Visit Diagnoses Not on filedocumented in this encounter Additional Health Concerns Assessment Noted Time PHQ-9 Depression Total Score: 6 07/20/2015 8:59 AM CDT documented as of this encounter
--- OUTSIDE RECORDS SUMMARY | 2022-01-21 09:01 | XMS_ITS | Encounter Summary ---
:1955 Author Organization [facility] Address [address] [place] [address] Care Team Providers Name Role Phone Unavailable Primary Care Provider Unavailable Encounter Details Date Type Department Care Team Description 07/28/2015 - Hospital Encounter HX RST PAIN REHAB Antonio Castro 08/04/2015 PSYCH OP J, Ph.D., L.P. [address] [place] [address] [phone] Social History Tobacco Use Types Packs/Day Years [...] Orthopedic Surgery Deon Herrera M.D. [address] [place], [place] [phone] (Wo rk) documented as of this encounter Visit Diagnoses Not on filedocumented in this encounter Additional Health Concerns Assessment Noted Time PHQ-9 Depression Total Score: 6 07/20/2015 8:59 AM CDT documented as of this encounter
--- OUTSIDE RECORDS SUMMARY | 2022-01-21 09:02 | XMS_ITS | Encounter Summary ---
:1955 Author Organization [facility] Address [address] [place] [address] Care Team Providers Name Role Phone Unavailable Primary Care Provider Unavailable Encounter Details Date Type Department Care Team Description 07/27/2015 - Hospital Encounter HX RST PAIN REHAB Kaye Fitzpatrick 08/03/2015 PSYCH OP L, GRILL ATTENDANT, PROFESSIONAL SHOPPER, R. N. [address] [facility] [address] PRATHER, Evaristo [address] [place], [place] [address] (Wo rk) Social History [...] do you attend episcopalian or Never 2021 zoroastrian services? Do you [...] Orthopedic Surgery Deon Herrera M.D. [address] [place], [place] [phone] (Wo rk) documented as of this encounter Visit Diagnoses Not on filedocumented in this encounter Additional Health Concerns Assessment Noted Time PHQ-9 Depression Total Score: 6 07/20/2015 8:59 AM CDT documented as of this encounter
--- OUTSIDE RECORDS SUMMARY | 2022-01-21 09:02 | XMS_ITS | Encounter Summary ---
:1955 Author Organization [facility] Address [address] [place] [address] Care Team Providers Name Role Phone Unavailable Primary Care Provider Unavailable Encounter Details Date Type Department Care Team Description 07/27/2015 - Hospital Encounter HX RST PAIN REHAB Antonio Castro 08/03/2015 PSYCH OP J, Ph.D., L.P. [address] [place] [address] [phone] Social History Tobacco Use Types Packs/Day Years [...] you attend latter day or Never 2021 scientology services? Do you [...] Orthopedic Surgery Deon Herrera M.D. [address] [place], [place] [phone] (Wo rk) documented as of this encounter Visit Diagnoses Not on filedocumented in this encounter Additional Health Concerns Assessment Noted Time PHQ-9 Depression Total Score: 6 07/20/2015 8:59 AM CDT documented as of this encounter
--- OUTSIDE RECORDS SUMMARY | 2022-01-21 09:02 | XMS_ITS | Encounter Summary ---
:1955 Author Organization [facility] Address [address] [place] [address] Care Team Providers Name Role Phone Unavailable Primary Care Provider Unavailable Encounter Details Date Type Department Care Team Description 07/27/2015 - Hospital Encounter HX RST PAIN REHAB Vipul Kelly, 08/03/2015 PSYCH OP THREAD PULLING MACHINE ATTENDANT, BELT SANDER [address] [place] [address] Social History Tobacco Use Types Packs/Day Years [...] do you attend yazidi or Never 2021 pentecostal services? Do you [...] Orthopedic Surgery Deon Herrera M.D. [address] [place], [place] [phone] (Wo rk) documented as of this encounter Visit Diagnoses Not on filedocumented in this encounter Additional Health Concerns Assessment Noted Time PHQ-9 Depression Total Score: 6 07/20/2015 8:59 AM CDT documented as of this encounter
--- OUTSIDE RECORDS SUMMARY | 2022-01-21 09:02 | XMS_ITS | Encounter Summary ---
:1955 Author Organization [facility] Address [address] [place] [address] Care Team Providers Name Role Phone Unavailable Primary Care Provider Unavailable Encounter Details Date Type Department Care Team Description 07/27/2015 - Hospital Encounter HX RST PAIN REHAB Zuly Frederick , 08/03/2015 PSYCH OP Ph.D., L.P. [address] [place] [address] Social History Tobacco Use Types [...] you attend roman catholic or Never 2021 gnosticism services? Do you [...] Orthopedic Surgery Deon Herrera M.D. [address] [place], [place] [phone] (Wo rk) documented as of this encounter Visit Diagnoses Not on filedocumented in this encounter Additional Health Concerns Assessment Noted Time PHQ-9 Depression Total Score: 6 07/20/2015 8:59 AM CDT documented as of this encounter
--- OUTSIDE RECORDS SUMMARY | 2022-01-21 09:02 | XMS_ITS | Encounter Summary ---
:1955 Author Organization [facility] Address [address] [place] [address] Care Team Providers Name Role Phone Unavailable Primary Care Provider Unavailable Encounter Details Date Type Department Care Team Description 07/26/2015 - Hospital Encounter HX RST PAIN REHAB Vipul Kelly, 08/02/2015 PSYCH OP ASH HANDLER, BROTHEL KEEPER [address] [place] [address] Social History Tobacco Use Types Packs/Day Years [...] do you attend mu-ism or Never 2021 pentecostal services? Do you [...] Orthopedic Surgery Deon Herrera M.D. [address] [place], [place] [phone] (Wo rk) documented as of this encounter Visit Diagnoses Not on filedocumented in this encounter Additional Health Concerns Assessment Noted Time PHQ-9 Depression Total Score: 6 07/20/2015 8:59 AM CDT documented as of this encounter
--- OUTSIDE RECORDS SUMMARY | 2022-01-21 09:02 | XMS_ITS | Encounter Summary ---
:1955 Author Organization [facility] Address [address] [place] [address] Care Team Providers Name Role Phone Unavailable Primary Care Provider Unavailable Encounter Details Date Type Department Care Team Description 07/27/2015 - Hospital Encounter HX RST PAIN REHAB Vipul Kelly, 08/03/2015 PSYCH OP FARM MANAGER, LUBRICATING SPECIALIST [address] [place] [address] Social History Tobacco Use Types Packs/Day Years [...] do you attend baptism or Never 2021 mandaen services? Do you [...] Orthopedic Surgery Deon Herrera M.D. [address] [place], [place] [phone] (Wo rk) documented as of this encounter Visit Diagnoses Not on filedocumented in this encounter Additional Health Concerns Assessment Noted Time PHQ-9 Depression Total Score: 6 07/20/2015 8:59 AM CDT documented as of this encounter
--- OUTSIDE RECORDS SUMMARY | 2022-01-21 09:02 | XMS_ITS | Encounter Summary ---
:1955 Author Organization [facility] Address [address] [place] [address] Care Team Providers Name Role Phone Unavailable Primary Care Provider Unavailable Encounter Details Date Type Department Care Team Description 07/25/2015 - Hospital Encounter HX RST PAIN REHAB Indy Ramos, 08/01/2015 PSYCH OP CALF SKINNER, SVP, D.N.P., M.S.N. [address] [place] [phone] Social History Tobacco Use Types Packs/Day Years [...] do you attend hinduism or Never 2021 judaism services? Do you [...] Orthopedic Surgery Deon Herrera M.D. [address] [place] [phone] (Wo rk) documented as of this encounter Visit Diagnoses Not on filedocumented in this encounter Additional Health Concerns Assessment Noted Time PHQ-9 Depression Total Score: 6 07/20/2015 8:59 AM CDT documented as of this encounter
--- OUTSIDE RECORDS SUMMARY | 2022-01-21 09:02 | XMS_ITS | Encounter Summary ---
:1955 Author Organization [facility] Address [address] [place] [address] Care Team Providers Name Role Phone Unavailable Primary Care Provider Unavailable Encounter Details Date Type Department Care Team Description 07/26/2015 - Hospital Encounter HX RST PMR PT OT Rona Zamudio , 08/02/2015 P.T. [address] [place] [address] Social History Tobacco Use Types Packs/Day Years [...] do you attend protestant or Never 2021 episcopalian services? Do you [...] Orthopedic Surgery Deon Herrera M.D. [address] [place], [place] [phone] (Wo rk) documented as of this encounter Visit Diagnoses Not on filedocumented in this encounter Additional Health Concerns Assessment Noted Time PHQ-9 Depression Total Score: 6 07/20/2015 8:59 AM CDT documented as of this encounter
--- OUTSIDE RECORDS SUMMARY | 2022-01-21 09:02 | XMS_ITS | Encounter Summary ---
:[address] [facility] Address [address] [place] [address] Care Team Providers Name Role Phone Unavailable Primary Care Provider Unavailable Encounter Details Date Type Department Care Team Description 07/26/2015 - Hospital Encounter HX RST PAIN REHAB Kaye Fitzpatrick 08/02/2015 PSYCH OP L, CURTAIN FITTER, SMALL KICK PRESS OPERATOR, R. N. [address] [facility] PRATHER, Evaristo [address] [place], [place] [address] (Wo rk) Social History [...] do you attend yarsanism or Never 2021 protestant services? Do you [...] Orthopedic Surgery Deon Herrera M.D. [address] [place], [place] [phone] (Wo rk) documented as of this encounter Visit Diagnoses Not on filedocumented in this encounter Additional Health Concerns Assessment Noted Time PHQ-9 Depression Total Score: 6 07/20/2015 8:59 AM CDT documented as of this encounter
--- OUTSIDE RECORDS SUMMARY | 2022-01-21 09:02 | XMS_ITS | Encounter Summary ---
:1955 Author Organization [facility] Address [address] [place] [address] Care Team Providers Name Role Phone Unavailable Primary Care Provider Unavailable Encounter Details Date Type Department Care Team Description 07/26/2015 - Hospital Encounter HX RST PAIN REHAB Vipul Kelly, 08/02/2015 PSYCH OP PHYSICAL THERAPY ASST, COURT CRIER [address] [place] [address] Social History Tobacco Use Types Packs/Day Years [...] do you attend zoroastrianism or Never 2021 sabianism services? Do you [...] Surgery Deon Herrera M.D. [address] [place], [place] [phone] (Wo rk) documented as of this encounter Visit Diagnoses Not on filedocumented in this encounter Additional Health Concerns Assessment Noted Time PHQ-9 Depression Total Score: 6 07/20/2015 8:59 AM CDT documented as of this encounter
--- OUTSIDE RECORDS SUMMARY | 2022-01-21 09:02 | XMS_ITS | Encounter Summary ---
:1955 Author Organization [facility] Address [address] [place] [address] Care Team Providers Name Role Phone Unavailable Primary Care Provider Unavailable Encounter Details Date Type Department Care Team Description 07/28/2015 - Hospital Encounter HX RST PAIN REHAB Kaye Fitzpatrick 08/04/2015 PSYCH OP L, ELECTRONIC CONSOLE DISPLAY OPERATOR, FRONT MAN, R. N. [address] PRATHER, Evaristo [address] [place], [place] [address] (Wo rk) Social History [...] do you attend nondenominational or Never 2021 voodoo services? Do you [...] Orthopedic Surgery Deon Herrera M.D. [address] [place], [place] [phone] (Wo rk) documented as of this encounter Visit Diagnoses Not on filedocumented in this encounter Additional Health Concerns Assessment Noted Time PHQ-9 Depression Total Score: 6 07/20/2015 8:59 AM CDT documented as of this encounter
--- OUTSIDE RECORDS SUMMARY | 2022-01-21 09:02 | XMS_ITS | Encounter Summary ---
:1955 Author Organization [facility] Address [address] [place] [address] Care Team Providers Name Role Phone Unavailable Primary Care Provider Unavailable Encounter Details Date Type Department Care Team Description 07/26/2015 - Hospital Encounter HX RST PAIN REHAB Keaton Hale 08/02/2015 PSYCH OP P, Ph.D., L.P. [address] [place] [address] [phone] Social History Tobacco Use Types Packs/Day Years [...] do you attend jainism or Never 2021 oriental orthodox services? Do [...] Orthopedic Surgery Deon Herrera M.D. [address] [place], [place] [phone] (Wo rk) documented as of this encounter Visit Diagnoses Not on filedocumented in this encounter Additional Health Concerns Assessment Noted Time PHQ-9 Depression Total Score: 6 07/20/2015 8:59 AM CDT documented as of this encounter
--- OUTSIDE RECORDS SUMMARY | 2022-01-21 09:02 | XMS_ITS | Encounter Summary ---
:1955 Author Organization [facility] Address [address] [place] [address] Care Team Providers Name Role Phone Unavailable Primary Care Provider Unavailable Encounter Details Date Type Department Care Team Description 07/26/2015 - Hospital Encounter HX RST PAIN REHAB Keaton Hale 08/02/2015 PSYCH OP P, Ph.D., L.P. [address] [place] [address] [phone] Social History Tobacco Use Types Packs/Day Years [...] do you attend moravian or Never 2021 synagogue services? Do you [...] Orthopedic Surgery Deon Herrera M.D. [address] [place], [place] [phone] (Wo rk) documented as of this encounter Visit Diagnoses Not on filedocumented in this encounter Additional Health Concerns Assessment Noted Time PHQ-9 Depression Total Score: 6 07/20/2015 8:59 AM CDT documented as of this encounter
--- OUTSIDE RECORDS SUMMARY | 2022-01-21 09:02 | XMS_ITS | Encounter Summary ---
:1955 Author Organization [facility] Address [address] [place] [address] Care Team Providers Name Role Phone Unavailable Primary Care Provider Unavailable Encounter Details Date Type Department Care Team Description 07/27/2015 - Hospital Encounter HX RST PMR PT OT Rona Zamudio , 08/03/2015 P.T. [address] [place] [address] Social History Tobacco Use Types Packs/Day Years [...] do you attend restorationism or Never 2021 orthodox services? Do you [...] Orthopedic Surgery Deon Herrera M.D. [address] [place], [place] [phone] (Wo rk) documented as of this encounter Visit Diagnoses Not on filedocumented in this encounter Additional Health Concerns Assessment Noted Time PHQ-9 Depression Total Score: 6 07/20/2015 8:59 AM CDT documented as of this encounter
--- OUTSIDE RECORDS SUMMARY | 2022-01-21 09:02 | XMS_ITS | Encounter Summary ---
:[address] [facility] Address [address] [place] [address] Care Team Providers Name Role Phone Unavailable Primary Care Provider Unavailable Encounter Details Date Type Department Care Team Description 07/27/2015 - Hospital Encounter HX RST PAIN REHAB Zuly Frederick , 08/03/2015 PSYCH OP Ph.D., L.P. [address] [place] [address] Social History Tobacco Use Types [...] do you attend anabaptism or Never 2021 episcopal services? Do you [...] Orthopedic Surgery Deon Herrera M.D. [address] [place], [place] [phone] (Wo rk) documented as of this encounter Visit Diagnoses Not on filedocumented in this encounter Additional Health Concerns Assessment Noted Time PHQ-9 Depression Total Score: 6 07/20/2015 8:59 AM CDT documented as of this encounter
--- OUTSIDE RECORDS SUMMARY | 2022-01-21 09:02 | XMS_ITS | Encounter Summary ---
:1955 Author Organization [facility] Address [address] [place] [address] Care Team Providers Name Role Phone Unavailable Primary Care Provider Unavailable Encounter Details Date Type Department Care Team Description 08/03/2015 Hospital Encounter HX RST FIBROMYALGIA Margarette Robertson, ALESIA, C.N.P., D.N.P., M.S. [address] [place] [phone] (Wo rk) Social History Tobacco Use Types [...] do you attend gnosticism or Never 2021 faith services? Do you [...] Orthopedic Surgery Deon Herrera M.D. [address] [place], [place] [phone] (Wo rk) documented as of this encounter Visit Diagnoses Not on filedocumented in this encounter Additional Health Concerns Assessment Noted Time PHQ-9 Depression Total Score: 6 07/20/2015 8:59 AM CDT documented as of this encounter
--- OUTSIDE RECORDS SUMMARY | 2022-01-21 09:02 | XMS_ITS | Encounter Summary ---
:1955 Author Organization [facility] Address [address] [place] [address] Care Team Providers Name Role Phone Unavailable Primary Care Provider Unavailable Encounter Details Date Type Department Care Team Description 07/25/2015 - Hospital Encounter HX RST PAIN REHAB Indy Ramos, 08/01/2015 PSYCH OP COMMUNICATIONS PROJECT MANAGER, MANAGER LOSS PREVENTION, D.N.P., M.S.N. [address] [place] [phone] Social History Tobacco Use Types Packs/Day Years [...] do you attend taoism or Never 2021 temple services? Do you [...] Orthopedic Surgery Deon Herrera M.D. [address] [place] [phone] (Wo rk) documented as of this encounter Visit Diagnoses Not on filedocumented in this encounter Additional Health Concerns Assessment Noted Time PHQ-9 Depression Total Score: 6 07/20/2015 8:59 AM CDT documented as of this encounter
--- OUTSIDE RECORDS SUMMARY | 2022-01-21 09:02 | XMS_ITS | Encounter Summary ---
:1955 Author Organization [facility] Address [address] [place] [address] Care Team Providers Name Role Phone Unavailable [...] Visit Orthopedic Surgery Deon Herrera M.D. [address] [place] [phone] (Wo rk) documented as of this encounter Visit Diagnoses Not on filedocumented in this encounter Additional Health Concerns Assessment Noted Time PHQ-9 Depression Total Score: 6 07/20/2015 8:59 AM CDT documented as of this encounter
--- OUTSIDE RECORDS SUMMARY | 2022-01-21 09:03 | XMS_ITS | Encounter Summary ---
:1955 Author Organization [facility] Address [address] [place] [address] Care Team Providers Name Role Phone Unavailable Primary Care Provider Unavailable Encounter Details Date Type Department Care Team Description 07/21/2015 - Hospital Encounter HX RST PAIN REHAB Indy Ramos, 07/28/2015 PSYCH OP FLIGHT CREW ORDNANCEMAN, BRADDISHER, D.N.P., M.S.N. [address] [place] [phone] Social History Tobacco Use Types Packs/Day Years [...] do you attend yarsanism or Never 2021 mandaen services? Do you [...] Orthopedic Surgery Deon Herrera M.D. [address] [place] [phone] (Wo rk) documented as of this encounter Visit Diagnoses Not on filedocumented in this encounter Additional Health Concerns Assessment Noted Time PHQ-9 Depression Total Score: 6 07/20/2015 8:59 AM CDT documented as of this encounter
--- OUTSIDE RECORDS SUMMARY | 2022-01-21 09:03 | XMS_ITS | Encounter Summary ---
:1955 Author Organization [facility] Address [address] [place] [address] Care Team Providers Name Role Phone Unavailable Primary Care Provider Unavailable Encounter Details Date Type Department Care Team Description 07/24/2015 - Hospital Encounter HX RST PAIN REHAB Indy Ramos, 07/31/2015 PSYCH OP COBOL APPLICATION DEVELOPER, UX DESIGN MANAGER, D.N.P., M.S.N. [address] [place] [phone] Social History Tobacco Use Types Packs/Day Years [...] Orthopedic Surgery Deon Herrera M.D. [address] [place] [phone] (Wo rk) documented as of this encounter Visit Diagnoses Not on filedocumented in this encounter Additional Health Concerns Assessment Noted Time PHQ-9 Depression Total Score: 6 07/20/2015 8:59 AM CDT documented as of this encounter
--- OUTSIDE RECORDS SUMMARY | 2022-01-21 09:03 | XMS_ITS | Encounter Summary ---
:1955 Author Organization [facility] Address [address] [place] [address] Care Team Providers Name Role Phone Unavailable Primary Care Provider Unavailable Encounter Details Date Type Department Care Team Description 07/24/2015 - Hospital Encounter HX RST PMR PT OT Clare Clay , 07/31/2015 O.T. [address] [facility] [address] [place], [place] [address] (Wo rk) Social History [...] do you attend pentecostalism or Never 2021 buddhism services? Do you [...] Orthopedic Surgery Deon Herrera M.D. [address] [place], [place] [phone] (Wo rk) documented as of this encounter Visit Diagnoses Not on filedocumented in this encounter Additional Health Concerns Assessment Noted Time PHQ-9 Depression Total Score: 6 07/20/2015 8:59 AM CDT documented as of this encounter
--- OUTSIDE RECORDS SUMMARY | 2022-01-21 09:03 | XMS_ITS | Encounter Summary ---
:1955 Author Organization [facility] Address [address] [place] [address] Care Team Providers Name Role Phone Unavailable Primary Care Provider Unavailable Encounter Details Date Type Department Care Team Description 07/21/2015 - Hospital Encounter HX RST PMR PT OT Denny Reddy 07/28/2015 L, P.T. [address] [place] [address] Social History Tobacco Use Types Packs/Day Years [...] do you attend synagogue or Never 2021 advent services? Do you [...] Orthopedic Surgery Deon Herrera M.D. [address] [place], [place] [phone] (Wo rk) documented as of this encounter Visit Diagnoses Not on filedocumented in this encounter Additional Health Concerns Assessment Noted Time PHQ-9 Depression Total Score: 6 07/20/2015 8:59 AM CDT documented as of this encounter
--- OUTSIDE RECORDS SUMMARY | 2022-01-21 09:03 | XMS_ITS | Encounter Summary ---
:1955 Author Organization [facility] Address [address] [place] [address] Care Team Providers Name Role Phone Unavailable Primary Care Provider Unavailable Encounter Details Date Type Department Care Team Description 07/25/2015 - Hospital Encounter HX RST PMR PT OT Denny Reddy 08/01/2015 L, P.T. [address] [place] [address] Social History Tobacco Use Types Packs/Day Years [...] Orthopedic Surgery Deon Herrera M.D. [address] [place], [place] [phone] (Wo rk) documented as of this encounter Visit Diagnoses Not on filedocumented in this encounter Additional Health Concerns Assessment Noted Time PHQ-9 Depression Total Score: 6 07/20/2015 8:59 AM CDT documented as of this encounter
--- OUTSIDE RECORDS SUMMARY | 2022-01-21 09:03 | XMS_ITS | Encounter Summary ---
:1955 Author Organization [facility] Address [address] [place] [address] Care Team Providers Name Role Phone Unavailable Primary Care Provider Unavailable Encounter Details Date Type Department Care Team Description 07/25/2015 - Hospital Encounter HX RST PAIN REHAB Jesse, 08/01/2015 PSYCH OP Colleen Polk M.D., Ph.D. [address] [place] [phone] Social History Tobacco Use Types Packs/Day Years [...] do you attend mosque or Never 2021 yazidi services? Do you [...] Surgery Deon Herrera M.D. [address] [place], [place] [phone] (Wo rk) documented as of this encounter Visit Diagnoses Not on filedocumented in this encounter Additional Health Concerns Assessment Noted Time PHQ-9 Depression Total Score: 6 07/20/2015 8:59 AM CDT documented as of this encounter
--- OUTSIDE RECORDS SUMMARY | 2022-01-21 09:03 | XMS_ITS | Encounter Summary ---
:1955 Author Organization [facility] Address [address] [place] [address] Care Team Providers Name Role Phone Unavailable Primary Care Provider Unavailable Encounter Details Date Type Department Care Team Description 07/24/2015 - Hospital Encounter HX RST PAIN REHAB Antonio Castro 07/31/2015 PSYCH OP J, Ph.D., L.P. [address] [place] [phone] Social History Tobacco Use Types Packs/Day Years [...] do you attend yazdanism or Never 2021 gnosticist services? Do you [...] Orthopedic Surgery Deon Herrera M.D. [address] [place], [place] [phone] (Wo rk) documented as of this encounter Visit Diagnoses Not on filedocumented in this encounter Additional Health Concerns Assessment Noted Time PHQ-9 Depression Total Score: 6 07/20/2015 8:59 AM CDT documented as of this encounter
--- OUTSIDE RECORDS SUMMARY | 2022-01-21 09:03 | XMS_ITS | Encounter Summary ---
:1955 Author Organization [facility] Address [address] [place] [address] Care Team Providers Name Role Phone Unavailable Primary Care Provider Unavailable Encounter Details Date Type Department Care Team Description 07/24/2015 - Hospital Encounter HX RST PMR PT OT Denny Reddy 07/31/2015 L, P.T. [address] [place] [address] Social History Tobacco Use Types Packs/Day Years [...] do you attend hinduism or Never 2021 anglican services? Do you [...] Orthopedic Surgery Deon Herrera M.D. [address] [place], [place] [phone] (Wo rk) documented as of this encounter Visit Diagnoses Not on filedocumented in this encounter Additional Health Concerns Assessment Noted Time PHQ-9 Depression Total Score: 6 07/20/2015 8:59 AM CDT documented as of this encounter
--- OUTSIDE RECORDS SUMMARY | 2022-01-21 09:03 | XMS_ITS | Encounter Summary ---
:1955 Author Organization [facility] Address [address] [place] [address] Care Team Providers Name Role Phone Unavailable Primary Care Provider Unavailable Encounter Details Date Type Department Care Team Description 07/25/2015 - Hospital Encounter HX RST PMR PT OT Hamilton Oquendo ie 08/01/2015 N, O.T. [address] [place] [address] (Wo rk) Social History Tobacco Use Types [...] do you attend congregation or Never 2021 scientology services? Do you [...] Orthopedic Surgery Deon Herrera M.D. [address] [place], [place] [phone] (Wo rk) documented as of this encounter Visit Diagnoses Not on filedocumented in this encounter Additional Health Concerns Assessment Noted Time PHQ-9 Depression Total Score: 6 07/20/2015 8:59 AM CDT documented as of this encounter
--- OUTSIDE RECORDS SUMMARY | 2022-01-21 09:03 | XMS_ITS | Encounter Summary ---
:1955 Author Organization [facility] Address [address] [place] [address] Care Team Providers Name Role Phone Unavailable Primary Care Provider Unavailable Encounter Details Date Type Department Care Team Description 07/21/2015 - Hospital Encounter HX RST PAIN REHAB Kaye Fitzpatrick 07/28/2015 PSYCH OP L, GROUNDS PERSON, REGULATORY AFFAIRS ASSISTANT, R. N. [address] PRATHER, Evaristo [address] [place], [place] [address] (Wo rk) Social History [...] do you attend hinduism or Never 2021 episcopal services? Do you [...] Orthopedic Surgery Deon Herrera M.D. [address] [place], [place] [phone] (Wo rk) documented as of this encounter Visit Diagnoses Not on filedocumented in this encounter Additional Health Concerns Assessment Noted Time PHQ-9 Depression Total Score: 6 07/20/2015 8:59 AM CDT documented as of this encounter
--- OUTSIDE RECORDS SUMMARY | 2022-01-21 09:03 | XMS_ITS | Encounter Summary ---
:1955 Author Organization [facility] Address [address] [place] [address] Care Team Providers Name Role Phone Unavailable Primary Care Provider Unavailable Encounter Details Date Type Department Care Team Description 07/24/2015 - Hospital Encounter HX RST PAIN REHAB Vipul Kelly, 07/31/2015 PSYCH OP ALLIANCE CONSULTANT, PRODUCT MARKETING COORDINATOR [address] [place] [address] Social History Tobacco Use Types Packs/Day Years [...] do you attend mandaeism or Never 2021 jew services? Do you [...] Orthopedic Surgery Deon Herrera M.D. [address] [place], [place] [phone] (Wo rk) documented as of this encounter Visit Diagnoses Not on filedocumented in this encounter Additional Health Concerns Assessment Noted Time PHQ-9 Depression Total Score: 6 07/20/2015 8:59 AM CDT documented as of this encounter
--- OUTSIDE RECORDS SUMMARY | 2022-01-21 09:03 | XMS_ITS | Encounter Summary ---
:1955 Author Organization [facility] Address [address] [place] [address] Care Team Providers Name Role Phone Unavailable Primary Care Provider Unavailable Encounter Details Date Type Department Care Team Description 07/21/2015 - Hospital Encounter HX RST PAIN REHAB Kaye Fitzpatrick 07/28/2015 PSYCH OP L, TOOL HONING MACHINE SET UP OPERATOR, ANCHORER, R. N. [address] PRATHER, Evaristo [address] [place], [place] [address] (Wo rk) Social History [...] do you attend mormonism or Never 2021 restoration services? Do you [...] Orthopedic Surgery Deon Herrera M.D. [address] [place], [place] [phone] (Wo rk) documented as of this encounter Visit Diagnoses Not on filedocumented in this encounter Additional Health Concerns Assessment Noted Time PHQ-9 Depression Total Score: 6 07/20/2015 8:59 AM CDT documented as of this encounter
--- OUTSIDE RECORDS SUMMARY | 2022-01-21 09:03 | XMS_ITS | Encounter Summary ---
:1955 Author Organization [facility] Address [address] [place] [address] Care Team Providers Name Role Phone Unavailable Primary Care Provider Unavailable Encounter Details Date Type Department Care Team Description 07/21/2015 - Hospital Encounter HX RST PMR PT OT Toby Espinoza da 07/28/2015 Mignon Polk., O.T., [facility] [address] [place] [phone] Social History Tobacco Use Types Packs/Day Years [...] do you attend muslim or Never 2021 presybeterian services? Do you [...] Orthopedic Surgery Deon Herrera M.D. [address] [place], [place] [phone] (Wo rk) documented as of this encounter Visit Diagnoses Not on filedocumented in this encounter Additional Health Concerns Assessment Noted Time PHQ-9 Depression Total Score: 6 07/20/2015 8:59 AM CDT documented as of this encounter
--- OUTSIDE RECORDS SUMMARY | 2022-01-21 09:03 | XMS_ITS | Encounter Summary ---
:1955 Author Organization [facility] Address [address] [place] [address] Care Team Providers Name Role Phone Unavailable Primary Care Provider Unavailable Encounter Details Date Type Department Care Team Description 07/25/2015 - Hospital Encounter HX RST PAIN REHAB Vipul Kelly, 08/01/2015 PSYCH OP REAMING MACHINE OPERATOR, HEMODIALYSIS CHARGE NURSE [address] [place] [address] Social History Tobacco Use Types Packs/Day Years [...] do you attend jewish or Never 2021 congregation services? Do you [...] Orthopedic Surgery Deon Herrera M.D. [address] [place], [place] [phone] (Wo rk) documented as of this encounter Visit Diagnoses Not on filedocumented in this encounter Additional Health Concerns Assessment Noted Time PHQ-9 Depression Total Score: 6 07/20/2015 8:59 AM CDT documented as of this encounter
--- OUTSIDE RECORDS SUMMARY | 2022-01-21 09:03 | XMS_ITS | Encounter Summary ---
:1955 Author Organization [facility] Address [address] [place] [address] Care Team Providers Name Role Phone Unavailable Primary Care Provider Unavailable Encounter Details Date Type Department Care Team Description 07/24/2015 - Hospital Encounter HX RST PAIN REHAB Keaton Hale 07/31/2015 PSYCH OP P, Ph.D., L.P. [address] [place] [phone] Social History Tobacco Use Types Packs/Day Years [...] do you attend scientology or Never 2021 pentecostal services? Do you [...] Orthopedic Surgery Deon Herrera M.D. [address] [place], [place] [phone] (Wo rk) documented as of this encounter Visit Diagnoses Not on filedocumented in this encounter Additional Health Concerns Assessment Noted Time PHQ-9 Depression Total Score: 6 07/20/2015 8:59 AM CDT documented as of this encounter
--- OUTSIDE RECORDS SUMMARY | 2022-01-21 09:03 | XMS_ITS | Encounter Summary ---
:1955 Author Organization [facility] Address [address] [place] [address] Care Team Providers Name Role Phone Unavailable Primary Care Provider Unavailable Encounter Details Date Type Department Care Team Description 07/24/2015 - Hospital Encounter HX RST PAIN REHAB Indy Ramos, 07/31/2015 PSYCH OP NUCLEAR PLANT OPERATOR, HOSPITAL INTERN, D.N.P., M.S.N. [address] [place] [phone] Social History Tobacco Use Types Packs/Day Years [...] do you attend gnosticist or Never 2021 scientology services? Do you [...] Orthopedic Surgery Deon Herrera M.D. [address] [place] [phone] (Wo rk) documented as of this encounter Visit Diagnoses Not on filedocumented in this encounter Additional Health Concerns Assessment Noted Time PHQ-9 Depression Total Score: 6 07/20/2015 8:59 AM CDT documented as of this encounter
--- OUTSIDE RECORDS SUMMARY | 2022-01-21 09:03 | XMS_ITS | Encounter Summary ---
:1955 Author Organization [facility] Address [address] [place] [address] Care Team Providers Name Role Phone Unavailable Primary Care Provider Unavailable Encounter Details Date Type Department Care Team Description 07/25/2015 - Hospital Encounter HX RST PAIN REHAB Indy Ramos, 08/01/2015 PSYCH OP ORACLE DATABASE CONSULTANT, LIFE GUARD, D.N.P., M.S.N. [address] [place] [phone] Social History Tobacco Use Types Packs/Day Years [...] do you attend gnosticist or Never 2021 christian services? Do you [...] Orthopedic Surgery Deon Herrera M.D. [address] [place] [phone] (Wo rk) documented as of this encounter Visit Diagnoses Not on filedocumented in this encounter Additional Health Concerns Assessment Noted Time PHQ-9 Depression Total Score: 6 07/20/2015 8:59 AM CDT documented as of this encounter
--- OUTSIDE RECORDS SUMMARY | 2022-01-21 09:03 | XMS_ITS | Encounter Summary ---
:1955 Author Organization [facility] Address [address] [place] [address] Care Team Providers Name Role Phone Unavailable Primary Care Provider Unavailable Encounter Details Date Type Department Care Team Description 07/21/2015 - Hospital Encounter HX RST PAIN REHAB Indy Ramos, 07/28/2015 PSYCH OP FINANCIAL REPRESENTATIVE, CONSULTING ENGINEER, D.N.P., M.S.N. [address] [place] [phone] Social History Tobacco Use Types Packs/Day Years [...] do you attend lutheran or Never 2021 jew services? Do you [...] Orthopedic Surgery Deon Herrera M.D. [address] [place] [phone] (Wo rk) documented as of this encounter Visit Diagnoses Not on filedocumented in this encounter Additional Health Concerns Assessment Noted Time PHQ-9 Depression Total Score: 6 07/20/2015 8:59 AM CDT documented as of this encounter
--- OUTSIDE RECORDS SUMMARY | 2022-01-21 09:04 | XMS_ITS | Encounter Summary ---
:1955 Author Organization [facility] Address [address] [place] [address] Care Team Providers Name Role Phone Unavailable Primary Care Provider Unavailable Encounter Details Date Type Department Care Team Description 07/20/2015 - Hospital Encounter HX RST PAIN REHAB Jesse, 07/27/2015 PSYCH OP Colleen Polk M.D., Ph.D. [address] [place] [phone] Social History Tobacco Use Types Packs/Day Years [...] do you attend moravian or Never 2021 restorationist services? Do you [...] Surgery Deon Herrera M.D. [address] [place], [place] [phone] (Wo rk) documented as of this encounter Visit Diagnoses Not on filedocumented in this encounter Additional Health Concerns Assessment Noted Time PHQ-9 Depression Total Score: 6 07/20/2015 8:59 AM CDT documented as of this encounter
--- OUTSIDE RECORDS SUMMARY | 2022-01-21 09:04 | XMS_ITS | Encounter Summary ---
:1955 Author Organization [facility] Address [address] [place] [address] Care Team Providers Name Role Phone Unavailable Primary Care Provider Unavailable Encounter Details Date Type Department Care Team Description 09/26/2014 Hospital Encounter HX [facility] Guido Paige M.D. [address] [place] [address], [address] [place] [address] (Wo rk) Social History Tobacco [...] do you attend catholic or Never 2021 samaritan services? Do you [...] Orthopedic Surgery Deon Herrera M.D. [address] [place], [place] [phone] (Wo rk) documented as [...] 09/26/2014 11:33 AM CDT Addenda Addendum by Provider, Davey Hopkins. o n 09/26/2014 11:33 AM CDT RAD^^^OW XR Foot Left 3 or more views 09/26/2014 11:33:16 Addendum by ProviderKellie M.D. o [...] the third metatarsal is seen. Madyson Larios(R), RSukh(R)(M) IMG DIAGNOSTIC IMAGING PROCEDURES documented in this encounter Visit Diagnoses Not on filedocumented in this encounter
--- OUTSIDE RECORDS SUMMARY | 2022-01-21 09:04 | XMS_ITS | Encounter Summary ---
:1955 Author Organization [facility] Address [address] [place] [address] Care Team Providers Name Role Phone Unavailable Primary Care Provider Unavailable Encounter Details Date Type Department Care Team Description 05/08/2015 Hospital Encounter HX [facility] Guido Man M.D. [address] [place] [address], [address] [place] [address] (Wo rk) Social History Tobacco [...] do you attend jainism or Never 2021 scientologist services? Do you [...] Comments Blood Pressure 138/74 05/08/2015 2:54 PM PIN STICKER Pulse - - Temperature - - Respiratory Rate - - Oxygen Saturation - - Inhaled Oxygen Concentration - - Weight 120 kg (264 lb 1.8 oz) 05/08/2015 2:54 PM PIN STICKER Height - - Body Mass Index 39.12 [...] encounter Progress Notes Yobani Mna M.D. - 05/08/2015 2:43 PM CST [id number] CHIEF COMPLAINT/REASON FOR VISIT Neck pain, cervical stenosis. HISTORY OF PRESENT ILLNESS Ms. Caro made this appointment today as she had some questions for me with respect to herpain. She is scheduled to be seen in [place] in Neurology on June 04 which I [...] is scheduled to meet with Neurology at [place] at the end of May, which is [...] following Ms. Caro's consultation with Neurology at [place]. She knows to be in contact with [...] MAN MD On: 05/11/2015 09:03 AM Source: [facility] MHSDOLBEYNONRADSYS Document Id: [id number] STICKER documented in this encounter Miscellaneous Notes Miscellaneous - Yobani Man M.D. - 05/08/2015 3:48 PM CST Ambulatory Patient Summary [facility] [address] [place] [id number] Visit Information Name: YAZ CARO [facility] Number: [id number] Current Date: 05/08/2015 15:48:36 Physicians Attending Provider: YOBANI MAN MD Primary Care Provider: PCP, ELSEWHERE NICOLASRAMESHMATTSONYAZ SAMANIEGO has been given the following list [...] if you dont have one. Go to [email or web address] and click on Create Your Account. Then, follow the directions to complete the online form. Youll be asked for your [facility] number which you can find at the top of this document. Your Goals/Additional instructions: Source: [facility] POWERCHART Document Id: [id number] STICKER Miscellaneous - Yobani Man M.D. - 05/08/2015 3:48 PM CST Ambulatory Discharge Medication List [address] [id number] Visit Information Name: YAZ CARO [facility] Number: [id number] Visit Date: 05/08/2015 15:48:34 Attending [...] MD Signed On:08-MAY-2015 15:48:13 Additional Information: Source: [facility] POWERCHART Document Id: [id number] STICKER Miscellaneous - Kate Giraldo LCandyP.N. - 05/08/2015 2:54 PM CST Adult Electronic Intelligence Officer Intake/History Adult Electronic Intelligence Officer Intake/History Entered On: 05/08/2015 14:56 PIN STICKER Performed On: 05/08/2015 14:54 PIN STICKER by KATE GIRALDO LPN Intake Systolic Blood Pressure : 138 mmHg Diastolic Blood Pressure : 74 mmHg NIBP Mean : 95 mmHg BP Location : Left upper extremity Blood Pressure Cuff Size : Large Actual Weight : 119.8 kg(Converted to: 264 lb 2 oz) Dosing Weight Clinic : 119.8 kg KATE GIRALDO LPN - 05/08/2015 14:54 PIN STICKER General Info Information Given By : Patient Languages : Malian Is Patient Female and 13-50 no hysterectomy : No GIRALDOKATE ELLINGTON ARDEN VARGAS - 05/08/2015 14:54 PIN STICKER Subjective Pain Symptoms : No KATE GIRALDO LPN - 05/08/2015 14:54 PIN STICKER Dependent Habits Exposure to Tobacco Smoke : Other: never Smoking Status : Never smoker Tobacco 2A : No Tobacco Use/Currently Using : No Tobacco Use/Last 30 Days : No Tobacco Use/Last 12 months : No KATE GIRALDO LPN - 05/08/2015 14:54 PIN STICKER [facility] Document Id: [id number] PIN STICKER!22 STICKER documented in this encounter Plan of Treatment Upcoming Encounters Date Type Specialty Care Team Description 02/04/2022 Office Visit Orthopedic Surgery Deon Herrera M.D. [address] [place], [place] [phone] (Wo rk) documented as of this encounter Visit Diagnoses Not on filedocumented in this encounter Additional Health Concerns Assessment Noted Time PHQ-9 Depression Total Score: 4 01/24/2015 6:02 PM PIN STICKER documented as of this encounter
--- OUTSIDE RECORDS SUMMARY | 2022-01-21 09:04 | XMS_ITS | Encounter Summary ---
:1955 Author Organization [facility] Address [address] [place] [address] Care Team Providers Name Role Phone Unavailable Primary Care Provider Unavailable Encounter Details Date Type Department Care Team Description 07/20/2015 - Hospital Encounter HX RST PHARMACY PT [place], 07/27/2015 EDUC Sherin Polk, Pharm.D., R.Ph. [address] [place] [phone] Social History Tobacco Use Types Packs/Day Years [...] do you attend adventist or Never 2021 pentecostal services? Do you [...] Orthopedic Surgery Deon Herrera M.D. [address] [place], [place] [phone] (Wo rk) documented as of this encounter Visit Diagnoses Not on filedocumented in this encounter Additional Health Concerns Assessment Noted Time PHQ-9 Depression Total Score: 6 07/20/2015 8:59 AM CDT documented as of this encounter
--- OUTSIDE RECORDS SUMMARY | 2022-01-21 09:04 | XMS_ITS | Encounter Summary ---
:1955 Author Organization [facility] Address [address] [place] [address] Care Team Providers Name Role Phone Unavailable Primary Care Provider Unavailable Encounter Details Date Type Department Care Team Description 03/02/2015 Hospital Encounter HX [facility] Guido Man M.D. [address] [place] [address], [address] [place] [address] (Wo rk) Social History Tobacco [...] Comments Blood Pressure 128/72 03/02/2015 3:18 PM FILLER BLOCK INSERTER REMOVER Pulse - - Temperature - - Respiratory Rate - - Oxygen Saturation - - Inhaled Oxygen Concentration - - Weight 118 kg (260 lb 9.3 oz) 03/02/2015 3:18 PM FILLER BLOCK INSERTER REMOVER Height - - Body Mass Index 38.6 [...] Man M.D. - 03/02/2015 3:01 PM CST [id number] CHIEF COMPLAINT/REASON FOR VISIT Followup low back [...] minutes, counseling time greater than 15 minutes. Yobain Man M.D./veena Electronically Signed By: YOBANI MAN MD On: 03/07/2015 10:31 AM Modified by and Electronically Signed by: YOBANI MAN MD On: 03/07/2015 10:31 AM Source: [facility] MHSDOLBEYNONRADSYS Document Id: [id number] ER BLOCK INSERTER REMOVER documented in this encounter Miscellaneous Notes Miscellaneous - Yobani Man M.D. - 03/02/2015 3:57 PM CST Ambulatory Patient Summary [address] [id number] Visit Information Name: KHRISMATTSONFANTA ASHBY [facility] Number: [id number] Current Date: 03/02/2015 15:57:31 [...] if you dont have one. Go to [email or web address] and click on Create Your Account. Then, follow the directions to complete the online form. Youll be asked for your [facility] number which you can find at the top of this document. Your Goals/Additional instructions: Source: [facility] POWERCHART Document Id: [id number] ER BLOCK INSERTER REMOVER Miscellaneous - Yobani Man M.D. - 03/02/2015 3:57 PM CST Ambulatory Discharge Medication List [address] [id number] Visit Information Name: FANTA CARO [facility] Number: [id number] Visit Date: 03/02/2015 15:57:30 [...] MD Signed On:02-MAR-2015 15:57:01 Additional Information: Source: [facility] [employer]ekko Document Id: [id number] ER BLOCK INSERTER REMOVER Miscellaneous - Wilad Giraldo, L.P.N. - 03/02/2015 3:18 PM CST Adult Salesperson Driver Intake/History Adult Salesperson Driver Intake/History Entered On: 03/02/2015 15:20 FILLER BLOCK INSERTER REMOVER Performed On: 03/02/2015 15:18 FILLER BLOCK INSERTER REMOVER by WILDA GIRALDO LPN Intake Systolic Blood Pressure : 128 mmHg Diastolic Blood Pressure : 72 mmHg NIBP Mean : 91 mmHg BP Location : Left upper extremity Blood Pressure Cuff Size : Large Actual Weight : 118.2 kg(Converted to: 260 lb 9 oz) Dosing Weight Clinic : 118.2 kg WILDA GIRALDO LPN - 03/02/2015 15:18 FILLER BLOCK INSERTER REMOVER General Info Information Given By : Patient Languages : Zambian Is Patient Female and 13-50 no hysterectomy : No WILDA GIRALDO LPN - 03/02/2015 15:18 FILLER BLOCK INSERTER REMOVER Subjective Pain Symptoms : No WILDA GIRALDO LPN - 03/02/2015 15:18 FILLER BLOCK INSERTER REMOVER Dependent Habits Exposure to Tobacco Smoke : Other: never Smoking Status : Never smoker Tobacco 2A : No WILDA GIRALDO LPN - 03/02/2015 15:18 FILLER BLOCK INSERTER REMOVER Source: [facility] POWERCHART Document Id: [id number] FILLER BLOCK INSERTER REMOVER!19 ER BLOCK INSERTER REMOVER documented in this encounter Plan of Treatment Upcoming Encounters Date Type Specialty Care Team Description 02/04/2022 Office Visit Orthopedic Surgery Deon Herrera M.D. [address] [place], [place] [phone] (Wo rk) documented as of this encounter Visit Diagnoses Not on filedocumented in this encounter Additional Health Concerns Assessment Noted Time PHQ-9 Depression Total Score: 4 01/24/2015 6:02 PM FILLER BLOCK INSERTER REMOVER documented as of this encounter
--- OUTSIDE RECORDS SUMMARY | 2022-01-21 09:04 | XMS_ITS | Encounter Summary ---
:1955 Author Organization [facility] Address [address] [place] [address] Care Team Providers Name Role Phone Unavailable Primary Care Provider Unavailable Encounter Details Date Type Department Care Team Description 07/17/2015 Hospital Encounter HX [facility] Guido Man M.D. [address] [place] [address], [address] [place] [address] (Wo rk) Social History Tobacco [...] do you attend tenriism or Never 2021 sikhism services? Do you [...] Man M.D. - 07/17/2015 2:15 PM CDT [id number] CHIEF COMPLAINT/REASON FOR VISIT Low back pain [...] to begin the [facility] in [place] on Friday, July 18, which I think [...] MAN MD On: 07/19/2015 10:43 AM Source: [facility] MHSDOLBEYNONRADSYS Document Id: [id number] documented in this encounter Procedure Notes Yobani [...] MAN MD On: 07/20/2015 11:39 AM Source: [facility] MHSDOLBEYNONRADSYS Document Id: [id number] documented in this encounter Miscellaneous Notes Miscellaneous [...] Patient ( ) ( ) Call for Analytical Strategist ( ) Follow up on Results ( ) Other: PROVIDER: ( ) Call Physician ( ) Call Pharmacist ( ) Call Lab ( ) Other: Special Instructions: Comments: Source: [facility] POWERCHART Document Id: [id number] Electronically signed by Priya [facility] Field Observer [id number] at 08/10/2016 1:26 PM CDT Miscellaneous - Yobani Man M.D. - 07/17/2015 3:15 PM CDT Ambulatory Patient Summary [facility] [address] [place] [id number] Visit Information Name: YAZ CRAO [facility] Number: [id number] Current Date: 07/17/2015 15:15:29 Physicians [...] if you dont have one. Go to [email or web address] and click on Create Your Account. Then, follow the directions to complete the online form. Youll be asked for your [facility] number which you can find at the top of this document. Your Goals/Additional instructions: Source: [facility] POWERCHART Document Id: [id number] Miscellaneous - Yobani Man M.D. - 07/17/2015 3:15 PM CDT Ambulatory Discharge Medication List [address] [id number] Visit Information Name: YAZ CARO [facility] Number: [id number] Visit Date: 07/17/2015 15:15:28 Attending [...] MD Signed On:17-JUL-2015 15:14:57 Additional Information: Source: [facility] POWERCHART Document Id: [id number] Miscellaneous - Kate Giraldo, LCandyP.N. - 07/17/2015 2:26 PM CDT Adult Precise Winder Intake/History Adult Precise Winder Intake/History Entered On: 07/17/2015 14:27 CDT Performed [...] Information Given By : Patient Languages : Mauritian Is Patient Female and 13-50 no hysterectomy [...] GIRALDO LPN - 07/17/2015 14:26 CDT Source: [employer]. Document Id: [id number] CDT!22 documented in this encounter Plan of Treatment Upcoming Encounters Date Type Specialty Care Team Description 02/04/2022 Office Visit Orthopedic Surgery Deon Herrera M.D. [address] [place], [place] [phone] (Wo rk) documented as of this encounter Visit Diagnoses Not on filedocumented in this encounter Additional Health Concerns Assessment Noted Time PHQ-9 Depression Total Score: 4 01/24/2015 6:02 PM CARD LACER JACQUARD documented as of this encounter
--- OUTSIDE RECORDS SUMMARY | 2022-01-21 09:04 | XMS_ITS | Encounter Summary ---
:1955 Author Organization [facility] Address [address] [place] [address] Care Team Providers Name Role Phone Unavailable Primary Care Provider Unavailable Encounter Details Date Type Department Care Team Description 09/26/2014 Hospital Encounter HX [facility] Guido Man M.D. [address] [place] [address], [address] [place] [address] (Wo rk) Social History Tobacco [...] do you attend shinto or Never 2021 shinto services? Do you [...] encounter Progress Notes Yobani Man M.D. - 09/26/2014 10:40 AM CDT [id number] CHIEF COMPLAINT/REASON FOR VISIT Followup low back [...] MD On: 09/27/2014 01:11 PM Source: [facility] MHSDOLBEYNONRADSYS Document Id: [id number] documented in this encounter Miscellaneous Notes Miscellaneous - Yobani Man M.D. - 09/26/2014 11:23 AM CDT Ambulatory Patient Summary [facility] [address] [place] [id number] Visit Information Name: NICOLASLuciano MULTANI YAZ [facility] Number: [id number] Current Date: 09/26/2014 11:23:01 [...] form. Youll be asked for your [facility] number which you can find at the top of this document. Your Goals/Additional instructions: Source: [facility] POWERCHART Document Id: [id number] Miscellaneous - Yobani Man M.D. - 09/26/2014 11:23 AM CDT Ambulatory Discharge Medication List [address] [id number] Visit Information Name: YAZ MAYERS [facility] Number: [id number] Visit Date: 09/26/2014 11:23:00 [...] Signed On:26-SEP-2014 11:20:43 Additional Information: Source: [facility] [employer] Document Id: [id number] Miscellaneous - Kate Giraldo L.P.NCandy - 09/26/2014 10:46 AM CDT Adult Biometric Fingerprinting Technician Intake/History Adult Biometric Fingerprinting Technician Intake/History Entered On: 09/26/2014 10:48 CDT Performed [...] Information Given By : Patient Languages : St Helenian Is Patient Female and 13-50 no hysterectomy : No KATE GIRALDO LPN - 09/26/2014 10:46 CDT Subjective Pain Symptoms : No KATE GIRALDO LPN - 09/26/2014 10:46 CDT Dependent Habits Tobacco Use/Currently Using : No Exposure to Tobacco Smoke : Other: never Smoking Status : Never smoker KATE GIRADLO LPN - 09/26/2014 10:46 CDT Source: [facility] [employer] Document Id: [id number] CDT!19 documented in this encounter Plan of Treatment Upcoming Encounters Date Type Specialty Care Team Description 02/04/2022 Office Visit Orthopedic Surgery Deon Herrera M.D. [address] [place] [phone] (Wo rk) documented as of this encounter Visit Diagnoses Not on filedocumented in this encounter
--- OUTSIDE RECORDS SUMMARY | 2022-01-21 09:04 | XMS_ITS | Encounter Summary ---
:1955 Author Organization [facility] Address [address] [place] [address] Care Team Providers Name Role Phone Unavailable Primary Care Provider Unavailable Encounter Details Date Type Department Care Team Description 04/10/2015 Hospital Encounter HX [facility] Guido Man M.D. [address] [place] [address], [address] [place] [address] (Wo rk) Social History Tobacco [...] do you attend anglican or Never 2021 islam services? Do you [...] Comments Blood Pressure 124/66 04/10/2015 2:43 PM MATERIALS MGMT TECH Pulse - - Temperature - - Respiratory Rate - - Oxygen Saturation - - Inhaled Oxygen Concentration - - Weight 119 kg (261 lb 14.5 oz) 04/10/2015 2:43 PM MATERIALS MGMT TECH Height - - Body Mass Index 38.79 [...] Man M.D. - 04/10/2015 2:22 PM CST [id number] CHIEF COMPLAINT/REASON FOR VISIT Neck pain and cervical spinal stenosis and low back pain. HISTORY OF PRESENT ILLNESS Ms. Caro returns today. Since I last saw her, she is seeing Dr. Ziggy Cabello at [facility], and I spoke with [...] cervical spine MRI that was performed in [place]. With the degree of stenosis seen on the MRI, I do feel it would be worthwhile for Ms. Encinas be evaluated by Neurology and/or Neurosurgery in [place] to obtain their opinion with respect to that at this time, and Ms. Caro is also in agreement with that and would appreciate thisas she understandably has been concerned since obtaining the cervical spine MRI and her appointment w beatriz Cabello. PLAN: 1. I am going to refer Ms. Caro to Neurosurgery in [place]. 2. Ms. Caro will continue with her [...] with Ms. Caro following her consultation in [place].She knows to be in contact with me [...] MAN MD On: 04/19/2015 06:18 PM Source: [facility] MHSDOLBEYNONRADSYS Document Id: [id number] RIALS MGMT TECH documented in this encounter Miscellaneous Notes Miscellaneous - Yobani Man M.D. - 04/10/2015 3:26 PM CST Ambulatory Patient Summary [place] [facility] [address] [place], [place] [phone] Visit Information Name: YAZ CARO [facility] Number: [id number] Current Date: 04/10/2015 15:26:33 Physicians Attending Provider: YOBANI MNA MD Primary Care Provider: PCP, GABE YAZ CARO has been given the following [...] Youll be asked for your [facility] number which you can find at the top of this document. Your Goals/Additional instructions: Source: [facility] POWERCHART Document Id: [id number] RIALS MGMT TECH Miscellaneous - Yobani Man M.D. - 04/10/2015 3:26 PM CST Ambulatory Discharge Medication List [address] [id number] Visit Information Name: YAZ CARO [facility] Number: [id number] Visit Date: 04/10/2015 15:26:31 [...] MD Signed On:10-APR-2015 15:25:50 Additional Information: Source: [facility] POWERCHART Document Id: [id number] RIALS MGMT TECH Miscellaneous - Kate Giraldo LCandyP.N. - 04/10/2015 2:43 PM CST Adult Hospital Ward Clerk Intake/History Adult Hospital Ward Clerk Intake/History Entered On: 04/10/2015 14:44 MATERIALS MGMT TECH Performed On: 04/10/2015 14:43 MATERIALS MGMT TECH by KATE GIRALDO LPN Intake Systolic Blood Pressure : 124 mmHg Diastolic Blood Pressure : 66 mmHg NIBP Mean : 85 mmHg BP Location : Left upper extremity Blood Pressure Cuff Size : Large Actual Weight : 118.8 kg(Converted to: 261 lb 15 oz) Dosing Weight Clinic : 118.8 kg KATE GIRALDO LPN - 04/10/2015 14:43 MATERIALS MGMT TECH General Info Information Given By : Patient Languages : Moldovan Is Patient Female and 13-50 no hysterectomy : No KATE GIRALDO LPN - 04/10/2015 14:43 MATERIALS MGMT TECH Subjective Pain Symptoms : No KATE GIRALDO LPN - 04/10/2015 14:43 MATERIALS MGMT TECH Dependent Habits Exposure to Tobacco Smoke : Other: never Smoking Status : Never smoker Tobacco 2A : No Tobacco Use/Currently Using : No Tobacco Use/Last 30 Days : No Tobacco Use/Last 12 months : No KATE GIRALDO LPN - 04/10/2015 14:43 MATERIALS MGMT TECH Source: [facility] [employer] Document Id: [id number] MATERIALS MGMT TECH!22 RIALS MGMT TECH documented in this encounter Plan of Treatment Upcoming Encounters Date Type Specialty Care Team Description 02/04/2022 Office Visit Orthopedic Surgery Deon Herrera M.D. [address] [place], [place] [phone] (Wo rk) documented as of this encounter Visit Diagnoses Not on filedocumented in this encounter Additional Health Concerns Assessment Noted Time PHQ-9 Depression Total Score: 4 01/24/2015 6:02 PM MATERIALS MGMT TECH documented as of this encounter
--- OUTSIDE RECORDS SUMMARY | 2022-01-21 09:04 | XMS_ITS | Encounter Summary ---
:1955 Author Organization [facility] Address [address] [place] [address] Care Team Providers Name Role Phone Unavailable Primary Care Provider Unavailable Encounter Details Date Type Department Care Team Description 10/26/2014 Hospital Encounter HX [facility] Guido Man M.D. [address] [place] [address], [address] [place] [address] (Wo rk) Social History Tobacco [...] do you attend jew or Never 2021 christian services? Do you [...] Man M.D. - 10/26/2014 10:12 AM CDT [id number] CHIEF COMPLAINT/REASON FOR VISIT Low back and [...] AM Source: [facility] MHSDOLBEYNONRADSYS Document Id: [id number] documented in this encounter Miscellaneous Notes Miscellaneous - Yobani Man M.D. - 10/26/2014 11:01 AM CDT Ambulatory Patient Summary [address] [id number] Visit Information Name: FANTA MAYERS [facility] Number: [id number] Current Date: 10/26/2014 11:01:23 Physicians [...] if you dont have one. Go to [email or web address] and click on Create Your Account. Then, follow the directions to complete the online form. Youll be asked for your [facility] number which you can find at the top of this document. Your Goals/Additional instructions: Source: [facility] POWERCHART Document Id: [id number] Miscellaneous - Yobani Man M.D. - 10/26/2014 11:01 AM CDT Ambulatory Discharge Medication List [address] [id number] Visit Information Name: FANTA MAYERS [facility] Number: [id number] Visit Date: 10/26/2014 11:01:21 Attending [...] On:26-OCT-2014 11:00:54 Additional Information: Source: [facility] [employer] Document Id: [id number] Miscellaneous - Eitan Almendarez CCandyMAris - 10/26/2014 10:32 AM CDT Adult Car Wrecker Intake/History Adult Car Wrecker Intake/History Entered On: 10/26/2014 10:33 CDT Performed [...] Information Given By : Patient Languages : Kiswahili Is Patient Female and 13-50 no hysterectomy : No EITAN ALMENDAREZ - 10/26/2014 10:32 CDT Subjective Pain Symptoms : No EITAN ALMENDAREZ - 10/26/2014 10:32 CDT Dependent Habits Tobacco Use/Currently Using : No Exposure to Tobacco Smoke : Other: never Smoking Status : Never smoker EITAN ALMENDAREZ - 10/26/2014 10:32 CDT Source: [facility] [employer] Document Id: [id number] CDT!20 documented in this encounter Plan of Treatment Upcoming Encounters Date Type Specialty Care Team Description 02/04/2022 Office Visit Orthopedic Surgery Deon Herrera M.D. [address] [place] [phone] (Wo rk) documented as of this encounter Visit Diagnoses Not on filedocumented in this encounter
--- OUTSIDE RECORDS SUMMARY | 2022-01-21 09:04 | XMS_ITS | Encounter Summary ---
:1955 Author Organization [facility] Address [address] [place] [address] Care Team Providers Name Role Phone Unavailable Primary Care Provider Unavailable Encounter Details Date Type Department Care Team Description 09/26/[address] [facility] Guido Paige M.D. [address] [place] [address], [address] [place] [address] (Wo rk) Social History Tobacco [...] do you attend restorationism or Never 2021 gnosticist services? Do you [...] Orthopedic Surgery Deon Herrera M.D. [address] [place], [place] [phone] (Wo rk) documented as [...] 11:33 AM CDT Addenda Addendum by Provider, Flynn Hopkins o n 09/26/2014 11:33 AM CDT RAD^^^OW XR Pelvis Hip Left 1 view 09/26/2014 11:33:16 Addendum by Provider, Flynn Hopkins o n 09/26/2014 11:33 AM CDT RAD^^^MA [...] pelvis and left hip . Madyson Larios(R), RSukh(R)(M) IMG DIAGNOSTIC IMAGING PROCEDURES documented in this encounter Visit Diagnoses Not on filedocumented in this encounter
--- OUTSIDE RECORDS SUMMARY | 2022-01-21 09:04 | XMS_ITS | Encounter Summary ---
:1955 Author Organization [facility] Address [address] [place] [address] Care Team Providers Name Role Phone Unavailable Primary Care Provider Unavailable Encounter Details Date Type Department Care Team Description 07/19/2015 - Hospital Encounter HX RST PMR PT OT Clare Clay , 07/26/2015 O.T. [address] [facility] [place], [place] [address] (Wo rk) Social History [...] do you attend religious or Never 2021 jehovah's witness services? Do [...] Orthopedic Surgery Deon Herrera M.D. [address] [place], [place] [phone] (Wo rk) documented as of this encounter Visit Diagnoses Not on filedocumented in this encounter Additional Health Concerns Assessment Noted Time PHQ-9 Depression Total Score: 4 01/24/2015 6:02 PM MEMBER SERVICE REPRESENTATIVE documented as of this encounter
--- OUTSIDE RECORDS SUMMARY | 2022-01-21 09:04 | XMS_ITS | Encounter Summary ---
:1955 Author Organization [facility] Address [address] [place] [address] Care Team Providers Name Role Phone Unavailable Primary Care Provider Unavailable Encounter Details Date Type Department Care Team Description 07/20/2015 - Hospital Encounter HX RST PMR PT OT Denny Reddy 07/27/2015 L, P.T. [address] [place] [address] Social History Tobacco Use Types Packs/Day Years [...] do you attend hindu or Never 2021 mandaeism services? Do you [...] Orthopedic Surgery Deon Herrera M.D. [address] [place], [place] [phone] (Wo rk) documented as of this encounter Visit Diagnoses Not on filedocumented in this encounter Additional Health Concerns Assessment Noted Time PHQ-9 Depression Total Score: 6 07/20/2015 8:59 AM CDT documented as of this encounter
--- OUTSIDE RECORDS SUMMARY | 2022-01-21 09:04 | XMS_ITS | Encounter Summary ---
:1955 Author Organization [facility] Address [address] [place] [address] Care Team Providers Name Role Phone Unavailable Primary Care Provider Unavailable Encounter Details Date Type Department Care Team Description 07/19/2015 Hospital Encounter HX NO MAPPING Mata And ambreen Polk PSukh [address] [place], [place] [phone] (Wo rk) Social History [...] do you attend zoroastrianism or Never 2021 presybeterian services? Do you [...] Orthopedic Surgery Deon Herrera M.D. [address] [place] [phone] (Wo ligia) documented as of this encounter Visit Diagnoses Not on filedocumented in this encounter Additional Health Concerns Assessment Noted Time PHQ-9 Depression Total Score: 4 01/24/2015 6:02 PM UNCRATER documented as of this encounter
--- OUTSIDE RECORDS SUMMARY | 2022-01-21 09:04 | XMS_ITS | Encounter Summary ---
:1955 Author Organization [facility] Address [address] [place] [address] Care Team Providers Name Role Phone Unavailable Primary Care Provider Unavailable Encounter Details Date Type Department Care Team Description 12/29/2014 Hospital Encounter HX [facility] Guido Padilla M.D. [address] [place] [address], [address] [place] [address] (Wo rk) Social History Tobacco [...] do you attend faith or Never 2021 jew services? Do you [...] Padilla M.D. - 12/29/2014 1:38 PM CDT [id number] CHIEF COMPLAINT/REASON FOR VISIT Follow up low [...] Caro to the [facility] [place]. I think that she would be an [...] PADILLA MD On: 01/02/2015 09:41 AM Source: [facility] MHSDOLBEYNONRADSYS Document Id: [id number] documented in this encounter Procedure Notes Yobani [...] in 2 weeks to assess her progress. oYbani Padilla M.D./veena Electronically Signed By: YOBANI PADILLA MD On: 01/02/2015 10:08 AM Modified by and Electronically Signed by: YOBANI PADILLA MD On: 01/02/2015 10:08 AM Source: [facility] MHSDOLBEYNONRADSYS Document Id: [id number] documented in this encounter Miscellaneous Notes Telephone Encounter - Nba Benson Jose Roberto - 01/19/2015 1:28 PM CST MRI From: NBA BENSON LPN ( Physical Medicine and Rehabilitation Staff) To: YAZ CARO Sent: 01/19/2015 13:28:33 ENVIRONMENTAL SAMPLING TECHNICIAN Subject: MRI Anmolpratibha Yaz, Sorry for the blank message, not sure what happened, I was just asking if you would be able to bringalong a copy of the MRI on CD when you come for your appointment. Thanks, ALICIA Fang Source: [facility] Leadhit Document Id: [id number] Electronically signed by Conversion, [facility] Digital Editor [id number] at 08/12/2016 3:47 AM CDT Telephone Encounter - Nba Benson - 01/19/2015 7:49 AM CST RE: MRI From: NBA BENSON LPN ( Physical Medicine and Rehabilitation Staff) To: YAZ CARO Sent: 01/19/2015 07:49:33 ENVIRONMENTAL SAMPLING TECHNICIAN Subject: RE: MRI Glad it's scheduled already! Would you be able to bring the images from the MRI with on a CD to yourappointment? Nba Stanley From: YAZ CARO To: Physical Medicine and Rehabilitation Staff Sent: 01/18/2015 7:07:46 PM ([facility]-06:00) Central Time ([place] & [place]) Subject: [...] Staff) To: YAZ CARO Sent: 01/18/2015 13:51:35 ENVIRONMENTAL SAMPLING TECHNICIAN Subject: RE: MRI Thanks Yaz, I will work on this, I do have to make sure an authorization isn't required by the insurance company, I'm sure it's not. I will then fax the order to [place], you will have to check with them to seeif they will have time to do both scans at that time. I will hopefully get the order finished and faxed this afternoon. Nba Stanley From: YAZ CARO To: Physical Medicine and Rehabilitation Staff Sent: 01/18/2015 1:47:43 PM ([facility]-06:00) Central Time ([place] & [place]) Subject: RE: MRI FridayJanuary 25, at 10:30 at the [facility]. Elise Stanley From: NBA BENSON LPN ( Physical Medicine and Rehabilitation Staff) To: YAZ CARO Sent: 01/18/2015 11:44:40 ENVIRONMENTAL SAMPLING TECHNICIAN Subject: MRI Anmolpratibha Mukherjee, Where are you having the MRI next week done at? I will submit the order form, they will contact you directly for scheduling then. ThanksNba LPN Source: [facility] POWERCHART Document Id: [id number] Telephone Encounter - Nba Benson - 01/18/2015 1:51 PM CST RE: MRI From: NBA BENSON LPN ( Physical Medicine and Rehabilitation Staff) To: YAZ CARO Sent: 01/18/2015 13:51:35 ENVIRONMENTAL SAMPLING TECHNICIAN Subject: RE: MRI Lizeth Yaz, I will work on this, I do have to make sure an authorization isn't required by the insurance company, I'm sure it's not. I will then fax the order to [place], you will have to check with them to seeif they will have time to do both scans at that time. I will hopefully get the order finished and faxed this afternoon. Thanks, Lacy From: YAZ CARO To: Physical Medicine and Rehabilitation Staff Sent: 01/18/2015 1:47:43 PM ([facility]-06:00) Central Time ([place] & [place]) Subject: RE: MRI FridayJanuary 25, at 10:30 at the [facility]. Elise Stanley From: NBA BENSON LPN ( Physical Medicine and Rehabilitation Staff) To: YAZ CARO Sent: 01/18/2015 11:44:40 ENVIRONMENTAL SAMPLING TECHNICIAN Subject: MRI Tairk Mukherjee, Where are you having the MRI next week done at? I will submit the order form, they will contact you directly for scheduling then. Nba Stanley LPN Source: [facility] StackpopCHART Document Id: [id number] Telephone Encounter - Nba Benson - 01/18/2015 1:48 PM CST FB MRI Document Contains Addenda Addendum by NBA BENSON LPN on 18 January 2015 14:28:13 ENVIRONMENTAL SAMPLING TECHNICIAN Order faxed. Addendum by SILAS MORENO on 18 January 2015 14:01:29 ENVIRONMENTAL SAMPLING TECHNICIAN From: SILAS MORENO ([facility] Customer Relations Advisor/Radiology Outside [facility]) To: Physical Medicine and Rehabilitation Staff; Sent: 01/18/2015 14:01:29 ENVIRONMENTAL SAMPLING TECHNICIAN Subject: RE: FB MRI Patient has bcbs cost sharing plan, no prior-auth needed. OK to schedule From: NBA BENSON LPN ( Physical Medicine and Rehabilitation Staff) To: [facility] Customer Relations Advisor/Radiology Outside [facility]; Sent: 01/18/2015 13:48:56 ENVIRONMENTAL SAMPLING TECHNICIAN Subject: FB MRI Patient Referred to Provider/Facility: [facility] Ordering Provider: [facility] Ordered: MRI Lumbar Spine Diagnosis: low back pain Source: [facility] StackpopCHART Document Id: [id number] Electronically signed by Conversion, [facility] Digital Editor [id number] at 08/12/2016 3:47 AM CDT Telephone Encounter - Nba Benson - 01/18/2015 11:44 AM CST MRI From: NBA BENSON LPN ( Physical Medicine and Rehabilitation Staff) To: YAZ CARO Sent: 01/18/2015 11:44:40 ENVIRONMENTAL SAMPLING TECHNICIAN Subject: MRI Tarik Mukherjee, Where are you having the MRI next week done at? I will submit the order form, they will contact you directly for scheduling then. Thanks, ALICIA Fang Source: [facility] Leadhit Document Id: [id number] Electronically signed by Conversion, [facility] Digital Editor [id number] at 08/12/2016 3:47 AM CDT Telephone Encounter - Nba Benson - 01/18/2015 7:50 AM CST FW: Follow Up Injection Document Contains Addenda Addendum by YOBANI PADILLA MD on 18 January 2015 11:43:06 ENVIRONMENTAL SAMPLING TECHNICIAN From: YOBANI PADILLA MD To: Physical Medicine and Rehabilitation Staff; YAZ CARO Sent: 01/18/2015 11:43:06 ENVIRONMENTAL SAMPLING TECHNICIAN Subject: RE: Follow Up Injection Ms. Caro, [...] To: YOBANI PADILLA MD; Sent: 01/18/2015 07:50:28 ENVIRONMENTAL SAMPLING TECHNICIAN Subject: FW: Follow Up Injection From: YAZ CARO To: Physical Medicine and Rehabilitation Staff Sent: 01/17/2015 9:41:11 PM ([facility]-06:00) Central Time ([place] & [place]) Subject: RE: Follow Up Injection Dear Dr. Padilla Because of breathing difficulties due to muscle weakness, I saw neurologist Dr. Ziggy Cabello in [place] yesterday. He gave me a thorough total exam and suggested I have another MRI done of the lowerspine. He suggested that my continuing hip and muscle pain on the left might be due to a pinched nerve. You can ask [facility] in [place] for a copy of his findings or talk to him directly. I am having an MRI done of the upper spine next Friday. If you order one of the lower spine before then, we can do it all together in one [facility] (or some such). Thank you for your attention to this matter, Yaz Caro From: NBA BENSON LPN ( Physical Medicine and Rehabilitation Staff) To: YAZ CARO Sent: 01/16/2015 07:57:40 ENVIRONMENTAL SAMPLING TECHNICIAN Subject: RE: Follow Up Injection I'm glad [...] area feeling? Did it help? Thanks, Lacy, TAX SERVICES PROFESSIONAL Source: [facility] StackpopCHART Document Id: [id number] Electronically signed by Conversion, [facility] Digital Editor [id number] at 08/12/2016 3:47 AM CDT Telephone Encounter - Nba Benson - 01/16/2015 7:57 AM CST RE: Follow Up Injection From: NBA BENSON LPN ( Physical Medicine and Rehabilitation Staff) To: YAZ CARO Sent: 01/16/2015 07:57:40 ENVIRONMENTAL SAMPLING TECHNICIAN Subject: RE: Follow Up Injection I'm glad to hear that Yaz, I have forwarded the information on to Dr. Padilla as well. Nba Stanley LPN From: YAZ CARO To: Physical Medicine and Rehabilitation Staff Sent: 01/13/2015 05:18 p.m. CDT Subject: RE: Follow Up Injection It helped quite a bit. Made a big difference . Thank you, Yaz From: BNA BENSON LPN ( Physical Medicine and Rehabilitation Staff) To: YAZ CARO Sent: 01/13/2015 10:36:14 CDT Subject: Follow Up Injection Tarik Mukherjee, I am following up in regards to the injection you had on the left hip, how is the area feeling? Did it help? Nba Stanley LPN Source: [facility] StackpopCHART Document Id: [id number] Electronically signed by Conversion, [facility] Digital Editor [id number] at 08/12/2016 3:47 AM CDT Telephone Encounter [...] Did it help? Thanks, ALICIA Fang Source: [facility] POWERCHART Document Id: [id number] Miscellaneous - Yobani Padilla M.D. - 12/29/2014 2:58 PM CDT Ambulatory Patient Summary [address] [id number] Visit Information Name: YAZ MAYERS [facility] Number: [id number] Current Date: 12/29/2014 14:58:18 Physicians [...] if you dont have one. Go to [email or web address] and click on Create Your Account. Then, follow the directions to complete the online form. Youll be asked for your [facility] number which you can find at the top of this document. Your Goals/Additional instructions: Source: [facility] POWERCHART Document Id: [id number] Miscellaneous - Yobani Padilla M.D. - 12/29/2014 2:58 PM CDT Ambulatory Discharge Medication List [address] [id number] Visit Information Name: YAZ MAYERS [facility] Number: [id number] Visit Date: 12/29/2014 14:58:16 Attending [...] MD Signed On:29-DEC-2014 14:57:45 Additional Information: Source: [facility] POWERCHART Document Id: [id number] Miscellaneous - Nba Benson - 12/29/2014 2:57 PM CDT Reminder Msg Document Contains Addenda Addendum by NBA BENSON LPN on 16 January 2015 07:57:00 ENVIRONMENTAL SAMPLING TECHNICIAN From: NBA BENSON LPN ( Physical Medicine and Rehabilitation Staff) To: YOBANI PADILLA MD; Sent: 01/16/2015 07:57:00 ENVIRONMENTAL SAMPLING TECHNICIAN Show up: 01/16/2015 07:56:00 ENVIRONMENTAL SAMPLING TECHNICIAN Subject: RE: Reminder Msg Per message back [...] Patient ( ) ( ) Call for Shipfitter Helper ( ) Follow up on Results ( ) Other: PROVIDER: ( ) Call Physician ( ) Call Pharmacist ( ) Call Lab ( ) Other: Special Instructions: Comments: Source: [facility] Leadhit Document Id: [id number] Nba Tariq - 12/29/2014 1:57 PM CDT Adult Helminthology Teacher Intake/History Adult Helminthology Teacher Intake/History Entered On: 12/29/2014 14:00 CDT Performed [...] Preferred Communication Mode : Verbal Languages : Liberian Is Patient Female and 13-50 no hysterectomy : No NBA BENSON LPN - 12/29/2014 13:57 CDT Subjective Pain Symptoms : No NBA BENSON LPN - 12/29/2014 13:57 CDT Dependent Habits Tobacco Use/Currently Using : No Exposure to Tobacco Smoke : Other: never Smoking Status : Never smoker NBA BENSON LPN - 12/29/2014 13:57 CDT Source: [facility] Leadhit Document Id: [id number] CDT!21 Yobani Brady M.D. - 12/29/2014 12:00 AM CDT [id number] December 29, 2014 [facility] [address] [place] [id number] RE: Yaz Multani : 1955 To Whom [...] M.D. Department of Physical Medicine and Rehabilitation [facility] [place] [place] [address] Phone: tc Electronically Signed By: YOBANI PADILLA MD On: 01/02/2015 09:33 AM Modified by and Electronically Signed by: YOBANI PADILLA MD On: 01/02/2015 09:33 AM Source: [facility] MHSDOLBEYNONRADSYS Document Id: [id number] documented in this encounter Plan of Treatment Upcoming Encounters Date Type Specialty Care Team Description 02/04/2022 Office Visit Orthopedic Surgery Deon Herrera M.D. [address] [place] [address], [place] [phone] (Wo rk) documented as of this encounter Visit Diagnoses Not on filedocumented in this encounter
--- OUTSIDE RECORDS SUMMARY | 2022-01-21 09:04 | XMS_ITS | Encounter Summary ---
:1955 Author Organization [facility] Address [address] [place] [address] Care Team Providers Name Role Phone Unavailable Primary Care Provider Unavailable Encounter Details Date Type Department Care Team Description 07/19/2015 - Hospital Encounter HX RST PMR PT OT Jones Hernandez, 07/26/2015 O.T. [address] [place] [address] Social History Tobacco Use Types Packs/Day Years [...] do you attend hoahaoism or Never 2021 yarsani services? Do you [...] Orthopedic Surgery Deon Herrera M.D. [address] [place], [place] [phone] (Wo rk) documented as of this encounter Visit Diagnoses Not on filedocumented in this encounter Additional Health Concerns Assessment Noted Time PHQ-9 Depression Total Score: 4 01/24/2015 6:02 PM PILE TRIMMER documented as of this encounter
--- OUTSIDE RECORDS SUMMARY | 2022-01-21 09:04 | XMS_ITS | Encounter Summary ---
:1955 Author Organization [facility] Address [address] [place] [address] Care Team Providers Name Role Phone Unavailable Primary Care Provider Unavailable Encounter Details Date Type Department Care Team Description 01/30/2015 Hospital Encounter HX [facility] Guido Man M.D. [address] [place] [address], [address] [place] [address] (Wo rk) Social History Tobacco [...] do you attend quaker or Never 2021 yarsani services? Do you [...] Comments Blood Pressure 120/64 01/30/2015 2:20 PM SITE CONTROLLER Pulse - - Temperature - - Respiratory Rate - - Oxygen Saturation - - Inhaled Oxygen Concentration - - Weight 121 kg (267 lb 10.2 oz) 01/30/2015 2:20 PM SITE CONTROLLER Height - - Body Mass Index 39.64 [...] Man M.D. - 01/30/2015 2:11 PM CST [id number] CHIEF COMPLAINT/REASON FOR VISIT Followup low back [...] She also has a meeting with a entry level receptionist and is going to be using a [...] MAN MD On: 02/06/2015 05:11 PM Source: [facility] MHSDOLBEYNONRADSYS Document Id: [id number] CONTROLLER documented in this encounter Miscellaneous Notes Miscellaneous - Samara Mishra R.N. - 02/21/2015 8:52 AM CST lyrica Document Contains Addenda Addendum by SAMARA MISHRA RN on 21 February 2015 14:44:35 SITE CONTROLLER Called into [facility] Addendum by YOBANI MAN MD on 21 February 2015 13:34:09 SITE CONTROLLER From: YOBANI MAN MD To: SAMARA MISHRA RN; Sent: 02/21/2015 13:34:09 SITE CONTROLLER Subject: RE: lyrica Please call. Thanks. Addendum by YOBANI MAN MD on 21 February 2015 13:34:02 SITE CONTROLLER Submitted: Order:pregabalin (Lyrica 150 mg oral capsule) 1 cap(s) PO 2xDay Qty: 60 cap(s) Refills: 5 Substitutions Allowed Don't Print - called to pharmacy (Rx) Signed by YOBANI MAN MD 02/21/2015 13:33:53 From: SAMARA MISHRA RN To: YOBANI MAN MD; Sent: 02/21/2015 08:52:38 SITE CONTROLLER Subject: lyrica Caller is: ( ) Patient ( ) Mother ( ) Father ( ) Spouse ( ) Daughter ( ) Son ( [facility]/[phone]; fax [phone] ) Pharmacy ( ) Other: Provider: juan Pharmacy: Name of Medications Needing Refill: lyrica 150 mg Last Refill Date: 01/19/15 qty 60 Additional Information: 1 cap po BID Last / Future Appointment: 01/30/15; 03/02/15 Disposition: ( x ) Send to Pharmacy ( ) Call to Pharmacy ( ) Patient will belt picker Script ( ) Mail Rxto Patient Source: [facility] POWERCHART Document Id: [id number] Electronically signed by Conversion, [facility] Community Development Officer [id number] at 08/12/2016 6:11 AM CDT Miscellaneous - Yobani Man M.D. - 01/30/2015 3:09 PM CST Ambulatory Patient Summary [facility] [address] [place] [id number] Visit Information Name: YAZ CARO [facility] Number: [id number] Current Date: 01/30/2015 15:09:48 Physicians [...] if you dont have one. Go to [email or web address] and click on Create Your Account. Then, follow the directions to complete the online form. Youll be asked for your [facility] number which you can find at the top of this document. Your Goals/Additional instructions: Source: [facility] POWERCHART Document Id: [id number] CONTROLLER Miscellaneous - Yobani Man M.D. - 01/30/2015 3:09 PM CST Ambulatory Discharge Medication List [address] [id number] Visit Information Name: YAZ CARO [facility] Number: [id number] Visit Date: 01/30/2015 15:09:46 Attending [...] MD Signed On:30-JAN-2015 15:09:16 Additional Information: Source: [facility] POWERCHART Document Id: [id number] CONTROLLER Miscellaneous - Nba Lockett - 01/30/2015 2:20 PM CST Adult Jboss Developer Intake/History Adult Jboss Developer Intake/History Entered On: 01/30/2015 14:22 SITE CONTROLLER Performed On: 01/30/2015 14:20 SITE CONTROLLER by NBA LOCKETT LPN Intake Actual Weight : 121.4 kg(Converted to: 267 lb 10 oz) Dosing Weight Clinic : 121.4 kg NBA LOCKETT LPN - 01/30/2015 14:22 SITE CONTROLLER Systolic Blood Pressure : 120 mmHg Diastolic Blood Pressure : 64 mmHg NIBP Mean : 83 mmHg BP Location : Left upper extremity Blood Pressure Cuff Size : Regular Weight Source : Standing scale NBA LOCKETT LPN - 01/30/2015 14:20 SITE CONTROLLER General Info Information Given By : Patient Preferred Communication Mode : Verbal Languages : Spanish Is Patient Female and 13-50 no hysterectomy : No NBA LOCKETT LPN - 01/30/2015 14:20 SITE CONTROLLER Subjective Pain Symptoms : No NBA LOCKETT LPN - 01/30/2015 14:20 SITE CONTROLLER Dependent Habits Tobacco Use/Currently Using : No Exposure to Tobacco Smoke : Other: never Smoking Status : Never smoker NBA LOCKETT LPN - 01/30/2015 14:20 SITE CONTROLLER Source: [employer] POWERCHART Document Id: [id number] SITE CONTROLLER!4 CONTROLLER documented in this encounter Plan of Treatment Upcoming Encounters Date Type Specialty Care Team Description 02/04/2022 Office Visit Orthopedic Surgery Deon Herrera M.D. [address] [place], [place] [phone] (Wo rk) documented as of this encounter Visit Diagnoses Not on filedocumented in this encounter Additional Health Concerns Assessment Noted Time PHQ-9 Depression Total Score: 4 01/24/2015 6:02 PM SITE CONTROLLER documented as of this encounter
--- OUTSIDE RECORDS SUMMARY | 2022-01-21 09:05 | XMS_ITS | Encounter Summary ---
:1955 Author Organization [facility] Address [address] [place] [address] Care Team Providers Name Role Phone Unavailable [...] do you attend pentecostalism or Never 2021 samaritan services? Do you [...] Orthopedic Surgery Deon Herrera M.D. [address] [place], [place] [phone] (Wo rk) documented as of this encounter Visit Diagnoses Not on filedocumented in this encounter
--- OUTSIDE RECORDS SUMMARY | 2022-01-21 09:05 | XMS_ITS | Encounter Summary ---
:1955 Author Organization [facility] Address [address] [place] [address] Care Team Providers Name Role Phone Unavailable [...] do you attend islam or Never 2021 cheondoism services? Do you [...] Orthopedic Surgery Deon Herrera M.D. [address] [place], [place] [phone] (Wo rk) documented as of this encounter Visit Diagnoses Not on filedocumented in this encounter
--- OUTSIDE RECORDS SUMMARY | 2022-01-21 09:05 | XMS_ITS | Encounter Summary ---
:1955 Author Organization [facility] Address [address] [place] [address] Care Team Providers Name Role Phone Unavailable Primary Care Provider Unavailable Encounter Details Date Type Department Care Team Description 09/09/2013 Hospital Encounter HX [facility] Guido Man M.D. [address] [place] [address], [address] [place] [address] (Wo rk) Social History Tobacco [...] do you attend sikh or Never 2021 hindu services? Do you [...] Man M.D. - 09/09/2013 11:06 AM CDT [id number] CHIEF COMPLAINT/REASON FOR VISIT Followup low back [...] MAN MD On: 09/15/2013 12:12 PM Source: [facility] MHSDOLBEYNONRADSYS Document Id: [id number] documented in this encounter Miscellaneous Notes Miscellaneous [...] Patient ( ) ( ) Call for Spooling Machine Operator ( ) Follow up on Results ( ) Other: PROVIDER: ( ) Call Physician ( ) Call Pharmacist ( ) Call Lab ( ) Other: Special Instructions: Comments: Source: [facility] POWERCHART Document Id: [id number] Electronically signed by Priya [facility] Cashier Payments Received [id number] at 08/13/2016 2:29 AM CDT Miscellaneous - Yobani Man M.D. - 09/09/2013 11:49 AM CDT Ambulatory Patient Summary [address] [id number] Visit Information Name: FANTA SANTAMARIA [facility] Number: [id number] Current Date: 09/09/2013 11:49:41 [...] appointment detail needed. Your Goals/Additional instructions: Source: [facility] POWERCHART Document Id: [id number] Miscellaneous - Yobani Man M.D. - 09/09/2013 11:49 AM CDT Ambulatory Discharge Medication List [address] [id number] Visit Information Name: FANTA SANTAMARIA [facility] Number: [id number] Visit Date: 09/09/2013 11:49:38 [...] MD Signed On:09-SEP-2013 11:49:14 Additional Information: Source: [facility] POWERCHART Document Id: [id number] Miscellaneous - Nba Benson - 09/09/2013 11:16 AM CDT Adult Colloid Mill Operator Intake/History Adult Colloid Mill Operator Intake/History Entered On: 09/09/2013 11:18 CDT Performed [...] Preferred Communication Mode : Verbal Languages : Kyrgyz NBA BENSON - 09/09/2013 11:16 CDT Subjective Pain Symptoms : No NBA BENSON - 09/09/2013 11:16 CDT Dependent Habits Tobacco Use/Currently Using : No Exposure to Tobacco Smoke : Other: never Smoking Status : Never smoker NBA BENSON - 09/09/2013 11:16 CDT [facility] Document Id: [id number] CDT!20 documented in this encounter Plan of Treatment Upcoming Encounters Date Type Specialty Care Team Description 02/04/2022 Office Visit Orthopedic Surgery Deon Herrera M.D. [address] [phone] (Wo rk) documented as of this encounter Visit Diagnoses Not on filedocumented in this encounter
--- OUTSIDE RECORDS SUMMARY | 2022-01-21 09:05 | XMS_ITS | Encounter Summary ---
:1955 Author Organization [facility] Address [address] [place] [address] Care Team Providers Name Role Phone Unavailable Primary Care Provider Unavailable Encounter Details Date Type Department Care Team Description 06/26/2012 Hospital Encounter HX [facility] Guido Man M.D. [address] [place] [address], [address] [place] [address] (Wo rk) Social History Tobacco [...] do you attend denominational or Never 2021 evangelical services? Do you [...] encounter Progress Notes Yobani Mna M.D. - 06/26/2012 10:17 AM CDT [id number] CHIEF COMPLAINT / REASON FOR VISIT Follow-up [...] been able to return home from the [facility] and has initiated physical therapy at [facility] a few days ago. She [...] working in physical therapy at [facility]. She brought in her exercises today which were reviewed and these look very appropriate. She will continue to advance her current program under the direction of her physical therapist at [facility]. 2. Ms. Santamaria has been [...] MAN MD On: 07/07/2012 09:16 AM Source: [facility] MHSDOLBEYNONRADSYS Document Id: [id number] documented in this encounter Miscellaneous Notes Miscellaneous - Yobani Man M.D. - 06/26/2012 12:00 PM CDT Ambulatory [place] [address] Visit Information Name: FANTA SANTAMARIA [facility] Number: [id number] Current Date: 06/26/2012 12:00:17 [...] Yobani Man MD Your Goals/Additional instructions: Source: [facility] POWERCHART Document Id: [id number] Miscellaneous - Yobani Man M.D. - 06/26/2012 12:00 PM CDT [place] [address] Visit Information Name: FANTA SANTAMARIA [facility] Number: [id number] Visit Date: 06/26/2012 12:00:16 [...] your provider for clarification. Additional Information: Source: [facility] POWERCHART Document Id: [id number] Miscellaneous - Francoise Avila P.A.-C. - 06/26/2012 10:57 AM CDT Adult Director Of Slot Operations Intake/History Adult Director Of Slot Operations Intake/History Entered On: 06/26/2012 10:59 CDT Performed [...] Weight Clinic : 115.6 kg FRANCOISE AVILA TOSHIA - 06/26/2012 10:57 CDT General Info Information Given By : Patient Preferred Communication Mode : Verbal Languages : Greek FRANCOISE AVILA TOSHIA - 06/26/2012 10:57 CDT Subjective Pain Symptoms : No FRANCOISE AVILA TOSHIA - 06/26/2012 10:57 CDT Dependent Habits Tobacco Use/Currently Using : No Exposure to Tobacco Smoke : Other: never Smoking Status : Never smoker [place] FRANCOISE POPE - 06/26/2012 10:57 CDT Source: [employer] Document Id: [id number] CDT!20 documented in this encounter Plan of Treatment Upcoming Encounters Date Type Specialty Care Team Description 02/04/2022 Office Visit Orthopedic Surgery Deon Herrera M.D. [address] [place] [address] [phone] (Wo rk) documented as of this encounter Visit Diagnoses Not on filedocumented in this encounter
--- OUTSIDE RECORDS SUMMARY | 2022-01-21 09:05 | XMS_ITS | Encounter Summary ---
:1955 Author Organization [facility] Address [address] [place] [address] Care Team Providers Name Role Phone Unavailable Primary Care Provider Unavailable Encounter Details Date Type Department Care Team Description 08/24/2014 Hospital Encounter HX [facility] Guido Man M.D. [address] [place] [address], [address] [place] [address] (Wo rk) Social History Tobacco [...] do you attend buddhist or Never 2021 latter-day services? Do you [...] Man M.D. - 08/24/2014 2:43 PM CDT [id number] CHIEF COMPLAINT/REASON FOR VISIT Low back and left lower extremity pain. HISTORY OF PRESENT ILLNESS Ms. Adames returns today in followup. She had a left L4 transforaminal corticosteroid injection performed, which she reports was very helpful for her. [facility] [...] Ms. Adames involved in physical therapy at [facility] where she has worked successfully [...] MAN MD On: 08/29/2014 09:52 AM Source: [facility] MHSDOLBEYNONRADSYS Document Id: [id number] documented in this encounter Miscellaneous Notes Miscellaneous - Ann-Marie Jung, RCandyN. - 10/10/2014 11:22 AM CDT *Medication Refill Msg Document Contains Addenda Addendum by ANN-MARIE JUNG on 10 October 2014 16:05:29 CDT called into [facility]. Addendum by YOBANI MAN MD on 10 [...] Call to Pharmacy ( ) Patient will shredder picker Script ( ) Mail Rx to Patient Source: [facility] POWERCHART Document Id: [id number] Electronically signed by Conversion, [facility] Dean Of Student Services [id number] at 08/12/2016 2:52 PM CDT Miscellaneous - Yobani Man M.D. - 08/24/2014 3:48 PM CDT Ambulatory Patient Summary [address] [id number] Visit Information Name: YAZ MAYERS [facility] Number: [id number] Current Date: 08/24/2014 15:48:54 [...] appointment detail needed. Your Goals/Additional instructions: Source: [facility] POWERCHART Document Id: [id number] Miscellaneous - Yobani Man M.D. - 08/24/2014 3:48 PM CDT Ambulatory Discharge Medication List [address] [id number] Visit Information Name: YAZ MAYERS [facility] Number: [id number] Visit Date: 08/24/2014 15:48:52 [...] MD Signed On:24-AUG-2014 15:48:21 Additional Information: Source: [facility] [email or web address] Document Id: [id number] Miscellaneous - Nba Benson - 08/24/2014 3:03 PM CDT Adult Wood Stock Blank Handler Intake/History Adult Wood Stock Blank Handler Intake/History Entered On: 08/24/2014 15:05 CDT Performed [...] Preferred Communication Mode : Verbal Languages : Peruvian Is Patient Female and 13-50 no hysterectomy : No NBA BENSON - 08/24/2014 15:03 CDT Subjective Pain Symptoms : No NBA BENSON - 08/24/2014 15:03 CDT Dependent Habits Tobacco Use/Currently Using : No Exposure to Tobacco Smoke : Other: never Smoking Status : Never smoker NBA BENSON - 08/24/2014 15:03 CDT [facility] Document Id: [id number] CDT!20 documented in this encounter Plan of Treatment Upcoming Encounters Date Type Specialty Care Team Description 02/04/2022 Office Visit Orthopedic Surgery Deon Herrera M.D. [address] [place] [address] [phone] (Wo rk) documented as of this encounter Visit Diagnoses Not on filedocumented in this encounter
--- OUTSIDE RECORDS SUMMARY | 2022-01-21 09:05 | XMS_ITS | Encounter Summary ---
:1955 Author Organization [facility] Address [address] [place] [address] Care Team Providers Name Role Phone Unavailable Primary Care Provider Unavailable Encounter Details Date Type Department Care Team Description 04/19/2014 Hospital Encounter HX [facility] Guido Man M.D. [address] [place] [address], [address] [place] [address] (Wo rk) Social History Tobacco [...] Comments Blood Pressure 124/66 04/19/2014 12:25 PM TECHNICAL SUPPORT COORDINATOR Pulse - - Temperature - - Respiratory Rate - - Oxygen Saturation - - Inhaled Oxygen Concentration - - Weight 119 kg (262 lb 12.6 oz) 04/19/2014 12:25 PM TECHNICAL SUPPORT COORDINATOR Height - - Body Mass Index 38.92 [...] Man M.D. - 04/19/2014 12:02 PM CST [id number] CHIEF COMPLAINT/REASON FOR VISIT Followup left chest [...] MAN MD On: 04/21/2014 12:08 PM Source: [facility] MHSDOLBEYNONRADSYS Document Id: [id number] NICAL SUPPORT COORDINATOR documented in this encounter Miscellaneous Notes Estefaniacellbernard - Nba Benson - 06/07/2014 9:25 AM CDT *General Message From: NBA BENSON ( Physical Medicine and Rehabilitation Staff) To: YAZ MAYERS Sent: 06/07/2014 09:25:00 CDT Subject: *General Message Tarik Mukherjee, I am following up with you after you had those injections in your low back, how are you feeling? Thank you, Nba Source: [facility] POWERCHART Document Id: [id number] Electronically signed by Priya [facility] Woodworking Shop Hand [id number] at 08/11/2016 8:28 PM CDT Miscellaneous - [...] Patient ( ) ( ) Call for Conductor Yard ( ) Follow up on Results ( ) Other: PROVIDER: ( ) Call Physician ( ) Call Pharmacist ( ) Call Lab ( ) Other: Special Instructions: Comments: Source: [facility] POWERCHART Document Id: [id number] Electronically signed by Priya [facility] Woodworking Shop Hand [id number] at 08/11/2016 8:28 PM CDT Miscellaneous - Yobani Man M.D. - 04/19/2014 1:48 PM CST Ambulatory Patient Summary [address] [id number] Visit Information Name: YAZ MAYERS [facility] Number: [id number] Current Date: 04/19/2014 13:48:35 Physicians [...] appointment detail needed. Your Goals/Additional instructions: Source: [facility] POWERCHART Document Id: [id number] NICAL SUPPORT COORDINATOR Miscellaneous - Yobani Man M.D. - 04/19/2014 1:48 PM CST Ambulatory Discharge Medication List [address] [id number] Visit Information Name: YAZ MAYERS [facility] Number: [id number] Visit Date: 04/19/2014 13:48:32 Attending [...] MD Signed On:19-APR-2014 13:47:56 Additional Information: Source: [facility] [employer] Document Id: [id number] NICAL SUPPORT COORDINATOR Miscellaneous - Nba Benson - 04/19/2014 12:25 PM CST Adult Wildland Fire Fighter Intake/History Adult Wildland Fire Fighter Intake/History Entered On: 04/19/2014 12:28 TECHNICAL SUPPORT COORDINATOR Performed On: 04/19/2014 12:25 TECHNICAL SUPPORT COORDINATOR by NBA BENSON Intake Systolic Blood Pressure : 124 mmHg Diastolic Blood Pressure : 66 mmHg NIBP Mean : 85 mmHg BP Location : Left upper extremity Blood Pressure Cuff Size : Large Actual Weight : 119.2 kg(Converted to: 262 lb 13 oz) Weight Source : Standing scale Dosing Weight Clinic : 119.2 kg NBA BENSON - 04/19/2014 12:25 TECHNICAL SUPPORT COORDINATOR General Info Information Given By : Patient Preferred Communication Mode : Verbal Languages : Azeri Is Patient Female and 13-50 no hysterectomy : NBA Covington - 04/19/2014 12:25 TECHNICAL SUPPORT COORDINATOR Subjective Pain Symptoms : NBA Covington - 04/19/2014 12:25 TECHNICAL SUPPORT COORDINATOR Dependent Habits Tobacco Use/Currently Using : No Exposure to Tobacco Smoke : Other: never Smoking Status : Never smoker NBA BENSON - 04/19/2014 12:25 TECHNICAL SUPPORT COORDINATOR ID Screen Drug Resistant Organism : No Travel Within Last 21 Days : NBA Covington - 04/19/2014 12:25 TECHNICAL SUPPORT COORDINATOR [facility] Document Id: [id number] TECHNICAL SUPPORT COORDINATOR!24 NICAL SUPPORT COORDINATOR documented in this encounter Plan of Treatment Upcoming Encounters Date Type Specialty Care Team Description 02/04/2022 Office Visit Orthopedic Surgery Deon Herrera M.D. [address] [place] [address] [phone] (Wo rk) documented as of this encounter Visit Diagnoses Not on filedocumented in this encounter
--- OUTSIDE RECORDS SUMMARY | 2022-01-21 09:05 | XMS_ITS | Encounter Summary ---
:1955 Author Organization [facility] Address [address] [place] [address] Care Team Providers Name Role Phone Unavailable Primary Care Provider Unavailable Encounter Details Date Type Department Care Team Description 10/28/2013 Hospital Encounter HX [facility]R Guido Man M.D. [address] [place] [address], [address] [place] [address] (Wo rk) Social History Tobacco [...] do you attend methodist or Never 2021 jewish services? Do you [...] Man M.D. - 10/28/2013 2:45 PM CDT [id number] CHIEF COMPLAINT/REASON FOR VISIT Follow up low [...] with Ms. Santamaria after her consultation at [place]. She knowsto be in contact with us [...] MAN MD On: 10/29/2013 11:58 AM Source: [facility] MHSDOLBEYNONRADSYS Document Id: [id number] documented in this encounter Miscellaneous Notes Telephone Encounter - Conversion, Historical Provider Ser - 01/24/2014 11:03 AM CST *Phone Message/Dr. Man Document Contains Addenda Addendum by NBA BENSON on 26 January 2014 08:06:07 ORTHODONTIC TECHNICIAN ASSISTANT Information has been added. From: CHELA CASTILLO ( [place] Nurse Private Duty) To: Physical Medicine and Rehabilitation Staff; Sent: 01/24/2014 11:03:14 ORTHODONTIC TECHNICIAN ASSISTANT Subject: *Phone Message/Dr. Man Caller is: ( ) Patient ( ) Mother ( ) Father ( ) Spouse ( ) Daughter ( ) Son ( ) Pharmacy ( x ) Other: Friend Physician: Dr. Man Patient MRN #: Reason [...] cell phone number ( ) Source: [facility] POWERCHART Document Id: [id number] Miscellaneous - Yobani Man M.D. - 10/28/2013 3:34 PM CDT Ambulatory Patient Summary [address] [id number] Visit Information Name: YAZ SANTAMARIA [facility] Number: [id number] Current Date: 10/28/2013 15:34:40 Physicians [...] detail needed. Your Goals/Additional instructions: Source: [facility] POWERCHART Document Id: [id number] Miscellaneous - Yobani Man M.D. - 10/28/2013 3:34 PM CDT Ambulatory Discharge Medication List [address] [id number] Visit Information Name: YAZ SANTAMARIA [facility] Number: [id number] Visit Date: 10/28/2013 15:34:38 Attending [...] MD Signed On:28-OCT-2013 15:33:53 Additional Information: Source: [facility] [employer] Document Id: [id number] Miscellaneous - Imelda Culp RSukh(R) - 10/28/2013 2:54 PM CDT Adult Assembler Equipment Intake/History Document Has Been Updated Adult Assembler Equipment Intake/History Entered On: 10/28/2013 14:58 CDT Performed [...] Preferred Communication Mode : Verbal Languages : Latvian Is Patient Female and 13-50 no hysterectomy [...] AVILA; Reviewed Date: 10/28/2013 14:55 CDT Source: [facility] [employer] Document Id: [id number] CDT!22 documented in this encounter Plan of Treatment Upcoming Encounters Date Type Specialty Care Team Description 02/04/2022 Office Visit Orthopedic Surgery Deon Herrera M.D. [address] [place], [place] [phone] (Wo rk) documented as of this encounter Visit Diagnoses Not on filedocumented in this encounter
--- OUTSIDE RECORDS SUMMARY | 2022-01-21 09:05 | XMS_ITS | Encounter Summary ---
:1955 Author Organization [facility] Address [address] [place] [address] Care Team Providers Name Role Phone Unavailable Primary Care Provider Unavailable Encounter Details Date Type Department Care Team Description 06/01/2013 Hospital Encounter HX [facility] Guido Man M.D. [address] [place] [address], [address] [place] [address] (Wo rk) Social History Tobacco [...] do you attend lutheran or Never 2021 confucianism services? Do you [...] Man M.D. - 06/01/2013 2:56 PM CDT [id number] CHIEF COMPLAINT/REASON FOR VISIT Low back pain. [...] MAN MD On: 06/02/2013 05:13 PM Source: [facility] MHSDOLBEYNONRADSYS Document Id: [id number] documented in this encounter Miscellaneous Notes Miscellaneous [...] 1 Substitutions Allowed Route To Pharmacy - [id number] Signed by YOBANI MAN MD From: FRANCOISE AVILA To: YOBANI MAN MD; Sent: 07/13/2013 09:52:46 CDT Subject: Medication Refill Msg Caller is: ( ) Patient ( ) Mother ( ) Father ( ) Spouse ( ) Daughter ( ) Son ( ) Pharmacy ( ) Other: Provider: [facility] Name of Medications Needing Refill: Lidoderm patches Last Refill Date: Additional Information: She has some left over at her house from the last time they were prescribed.She would like a refill of them. Last / Future Appointment: Disposition: ( ) Send to Pharmacy ( ) Call to Pharmacy ( ) Patient will pick up driver Script ( ) Mail Rx to Patient Source: [facility] POWERCHART Document Id: [id number] Miscellaneous - Francoise Avila P.A.-C. - 06/25/2013 4:05 PM CDT Reminder Msg Document Contains Addenda Addendum by FRANCOISE AVILA on 13 July 2013 09:49:18 CDT faxed to [facility] and patient notified. Addendum by YOBANI [...] send a referral for aquatic therapy to [facility]. From: FRANCOISE AVILA ( Physical [...] Patient ( ) ( ) Call for Costume Shop Manager ( ) Follow up on Results ( ) Other: PROVIDER: ( ) Call Physician ( ) Call Pharmacist ( ) Call Lab ( ) Other: Special Instructions: Comments: Source: [facility] POWERCHART Document Id: [id number] Miscellaneous - Yobani Man M.D. - 06/01/2013 3:52 PM CDT Ambulatory Patient Summary [address] [id number] Visit Information Name: YAZ SANTAMARIA [facility] Number: [id number] Current Date: 06/01/2013 15:52:27 Physicians [...] appointment detail needed. Your Goals/Additional instructions: Source: [facility] POWERCHART Document Id: [id number] Miscellaneous - Yobani Man M.D. - 06/01/2013 3:52 PM CDT Ambulatory Discharge Medication List [address] [id number] Visit Information Name: YAZ SANTAMARIA [facility] Number: [id number] Visit Date: 06/01/2013 15:52:26 Attending [...] in case of emergency. Additional Information: Source: [facility] POWERCHART Document Id: [id number] Miscellaneous - Francoise Avila P.A.-C. - 06/01/2013 3:06 PM CDT Adult Renal Medicine Physician Intake/History Adult Renal Medicine Physician Intake/History Entered On: 06/01/2013 15:07 CDT Performed [...] Preferred Communication Mode : Verbal Languages : Croatian FRANCOISE AVILA - 06/01/2013 15:06 CDT Subjective Pain Symptoms : No AVILA, FRANCOISE POPE - 06/01/2013 15:06 CDT Dependent Habits Tobacco Use/Currently Using : No Exposure to Tobacco Smoke : Other: never Smoking Status : Never smoker AVILAFRANCOISE - 06/01/2013 15:06 CDT Source: [facility] [employer] Document Id: [id number] CDT!20 documented in this encounter Plan of Treatment Upcoming Encounters Date Type Specialty Care Team Description 02/04/2022 Office Visit Orthopedic Surgery Deon Herrera M.D. [address] [place] [phone] (Wo rk) documented as of this encounter Visit Diagnoses Not on filedocumented in this encounter
--- OUTSIDE RECORDS SUMMARY | 2022-01-21 09:05 | XMS_ITS | Encounter Summary ---
:1955 Author Organization [facility] Address [address] [place] [address] Care Team Providers Name Role Phone Unavailable Primary Care Provider Unavailable Encounter Details Date Type Department Care Team Description 03/21/2014 Hospital Encounter HX [facility] Guido Paige M.D. [address] [place] [address], [address] [place] [address] (Wo rk) Social History Tobacco [...] do you attend jainism or Never 2021 restoration services? Do you [...] Surgery Deon Herrera M.D. [address] [place], [place] [phone] (Wo rk) documented as of this encounter Procedures Procedure Name Priority Date/Time Associated Diagnosis Comme nts DX SHOULDER LEFT 2+ Routine 03/21/2014 4:59 PM Re sults for this VIEWS FLIGHT OPERATIONS SPECIALIST procedure are i n the results section. documented in this encounter Results DX Shoulder Left 2+ Views (03/21/2014 4:59 PM FLIGHT OPERATIONS SPECIALIST) Anatomical Region Laterality Modality Upper Extremity, Shoulder Left Radiographic I maging Specimen (Source) Anatomical Collection Method Collection Time Re ceived Time Location / / Volume Laterality 03/21/2014 4:59 PM FLIGHT OPERATIONS SPECIALIST Addenda Addendum by Provider, Flynn Hopkins 03/21/2014 4:59 PM FLIGHT OPERATIONS SPECIALIST RAD^^^OW XR Shoulder Left 2 or more views 03/21/2014 16:59:04 Addendum by ProviderKellie M.D. o n 03/21/2014 4:59 PM FLIGHT OPERATIONS SPECIALIST RAD^^^MA XR SHOULDER LEFT 2 OR MORE VIEWS 03/21/2014 16:59:04 Impressions 03/21/2014 5:19 PM FLIGHT OPERATIONS SPECIALIST [Left clavicular fracture Narrative 03/21/2014 5:19 PM FLIGHT OPERATIONS SPECIALIST EXAM: XR Shoulder Left 2 or more views INDICATION: shoulder pain COMPARISON: None. FINDINGS: Glenohumeral joint is normal. Comminuted displaced lateral mid shaft clavicular fracture with bridg ing butterfly fragment Procedure Note Jamal Casey D.O. / ProviderKelly M.D. - 07/24/2016 EXAM: XR Shoulder Left 2 or more views INDICATION: shoulder pain COMPARISON: None. FINDINGS: Glenohumeral joint is normal. Comminuted displaced lateral mid shaft clavicular fracture with bridg ing butterfly fragment IMPRESSION: [Left clavicular fracture Danilo Larios(Manish)(M) IMG DIAGNOSTIC IMAGING PROCE DURES documented in this encounter Visit Diagnoses Not on filedocumented in this encounter
--- OUTSIDE RECORDS SUMMARY | 2022-01-21 09:05 | XMS_ITS | Encounter Summary ---
:1955 Author Organization [facility] Address [address] [place] [address] Care Team Providers Name Role Phone Unavailable Primary Care Provider Unavailable Encounter Details Date Type Department Care Team Description 10/28/2012 Hospital Encounter HX [facility] Guido Padilla M.D. [address] [place] [address], [address] [place] [address] (Wo rk) Social History Tobacco [...] do you attend advent or Never 2021 mosque services? Do you [...] Padilla M.D. - 10/28/2012 1:39 PM CDT [id number] CHIEF COMPLAINT/REASON FOR VISIT Low back and [...] placed her hospice. He is in the longterm and she spends several hours each day [...] going to refer Ms. Santamaria back to [facility] to see if she would be candidate [...] with Ms. Santamaria after her consultation at [facility] and she knows to be in contact with me prior to that time if she notes any worsening or worrisome symptoms which were detailed today. She voiced agreement and understands this plan. Total time 35 minutes, counseling time 20 minutes. Yobani Padilla M.D./jayy cc: [facility] Denise Bond M.D. [address] [place] [id number] Electronically Signed By: YOBANI PADILLA MD On: 11/03/2012 12:06 PM Modified by and Electronically Signed by: YOBANI PADILLA MD On: 11/03/2012 12:06 PM Source: [facility] MHSDOLBEYNONRADSYS Document Id: [id number] documented in this encounter Miscellaneous Notes Miscellaneous - Ann-Marie De Jesus, R.N. - 03/04/2014 9:02 AM CST *Medication Refill Msg Document Contains Addenda Addendum by ANN-MARIE DE JESUS on 04 March 2014 13:32:58 DISTILLERY WORKER [facility] Addendum by YOBANI PADILLA MD on 04 March 2014 11:32:48 DISTILLERY WORKER From: YOBANI PADILLA MD To: ANN-MARIE DE JESUS; Sent: 03/04/2014 11:32:48 DISTILLERY WORKER Subject: RE: *Medication Refill Msg Please call. Thanks. Addendum by YOBANI PADILLA MD on 04 March 2014 11:32:39 DISTILLERY WORKER Submitted: Order:pregabalin (Lyrica 150 mg oral capsule) 1 cap(s) PO 2xDay Qty: 60 cap(s) Refills: 5 Substitutions Allowed Don't Print - called to pharmacy (Rx) Signed by YOBANI PADILLA MD 03/04/2014 11:32:30 From: ANN-MARIE DE JESUS To: YOBANI PADILLA MD; Sent: 03/04/2014 09:02:25 DISTILLERY WORKER Subject: *Medication Refill Msg Caller is: ( ) Patient ( ) Mother ( ) Father ( ) Spouse ( ) Daughter ( ) Son ( ) Pharmacy ( ) Other: Provider: [place] [phone] Name of Medications Needing Refill:lyrica - 150mg caps- take one cap po 2 times daily Last Refill Date:02-03-14 #60 Additional Information: Last / Future Appointment: Disposition: ( ) Send to Pharmacy ( ) Call to Pharmacy ( ) 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 operator hop picker Script ( ) Mail Rx to Patient Source: [facility] CampaignerCRMCHART Document Id: [id number] Electronically signed by Priya [facility] Merchandising Manager [id number] at 08/14/2016 5:12 AM CDT Miscellaneous - Samara Mishra R.N. - 03/09/2013 11:09 AM CST Lyrica Document Contains Addenda Addendum by SAMARA MISHRA on 09 March 2013 11:51:09 DISTILLERY WORKER Medication called into [facility] [phone]... Addendum by YOBANI PADILLA MD on 09 March 2013 11:10:28 DISTILLERY WORKER From: YOBANI PADILLA MD To: SAMARA MISHRA; Sent: 03/09/2013 11:10:28 DISTILLERY WORKER Subject: RE: Lyrica Please call. Thanks. Addendum by YOBANI PADILLA MD on 09 March 2013 11:10:21 DISTILLERY WORKER Submitted: Order:pregabalin (Lyrica 150 mg oral capsule) 1 cap(s) PO 2xDay Qty: 60 cap(s) Refills: 5 Substitutions Allowed Don't Print - called to pharmacy (Rx) Signed by YOBANI PADILLA MD 03/09/2013 11:10:09 From: SAMARA MISHRA To: YOBANI PADILLA MD; Sent: 03/09/2013 11:09:34 DISTILLERY WORKER Subject: Lyrica Caller is: ( ) Patient ( ) Mother ( ) Father ( ) Spouse ( ) Daughter ( ) Son ( [facility] ) Pharmacy ( ) Other: Provider: Guido Padilla Pharmacy: Name of Medications Needing Refill: Lyrica 150 mg Last Refill Date: 02/07/13 qty 60 cap Additional Information: take 1 tab po BID Last / Future Appointment: 01/28/13 Disposition: ( x ) Send to Pharmacy ( ) Call to Pharmacy ( ) 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 operator hop picker Script ( ) Mail Rxto Patient Source: [facility] POWERCHART Document Id: [id number] Electronically signed by Conversion, [facility] Merchandising Manager [id number] at 08/14/2016 5:12 AM CDT Miscellaneous - [...] ) Pharmacy ( ) Other: Provider: Pharmacy: [facility] fax# [phone] # [phone] Name of Medications Needing Refill: Lyrica 150mg cap Last Refill Date:11/06/12, #60 Additional Information: Last / Future Appointment: 10/28/12 Disposition: ( ) Send to Pharmacy ( ) Call to Pharmacy ( ) 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 - 11/23/2012 [...] Patient ( ) ( ) Call for Snag Grinder ( ) Follow up on Results ( ) Other: PROVIDER: ( ) Call Physician ( ) Call Pharmacist ( ) Call Lab ( ) Other: Special Instructions: Comments: Source: [facility] POWERCHART Document Id: [id number] Electronically signed by Priya [facility] Merchandising Manager [id number] at 08/14/2016 5:12 AM CDT Telephone Encounter [...] back cell phone number ( ) Source: [facility] POWERCHART Document Id: [id number] Electronically signed by Priya [facility] Merchandising Manager [id number] at 08/14/2016 5:12 AM CDT Miscellaneous - Yobani Padilla M.D. - 10/28/2012 2:48 PM CDT [place] [address] Visit Information Name: YAZ SANTAMARIA [facility] Number: [id number] Current Date: 10/28/2012 14:48:28 Physicians [...] No Appointments found Your Goals/Additional instructions: Source: [facility] POWERCHART Document Id: [id number] Miscellaneous - Yobani Padilla M.D. - 10/28/2012 2:48 PM CDT [place] [address] Visit Information Name: YAZ SANTAMARIA [facility] Number: [id number] Visit Date: 10/28/2012 14:48:27 Attending [...] your provider for clarification. Additional Information: Source: [facility] [employer]atis Document Id: [id number] Miscellaneous - Conversion, Historical Provider Ser - 10/28/2012 2:08 PM CDT Adult Child Specialist Intake/History Adult Child Specialist Intake/History Entered On: 10/28/2012 14:11 CDT Performed [...] Given By : Patient Languages : Bolivian LEELEE PARRA LPN - 10/28/2012 14:08 CDT Subjective Pain Symptoms : No LEELEE PARRA LPN - 10/28/2012 14:08 CDT Dependent Habits Tobacco Use/Currently Using : No Exposure to Tobacco Smoke : Other: never Smoking Status : Never smoker LEELEE PARRA LPN - 10/28/2012 14:08 CDT [facility] Document Id: [id number] CDT!20 Miscellaneous - Yobani Padilla M.D. - 10/28/2012 12:00 AM CDT [id number] ALEXANDRA HERNANDEZ PA-C October 28, [address] [address] RE: Yaz Santamaria : 1955 Ms. Hernandez: [...] which was performedon May 06, 2012, at [facility] which you will have for your review. 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 She did see Dr. Romano, spine surgeon, at [place] with respect to this. Overall, Ms. Santamaria [...] PADILLA MD On: 10/28/2012 05:01 PM Source: [facility] MHSDOLBEYNONRADSYS Document Id: [id number] documented in this encounter Plan of Treatment Upcoming Encounters Date Type Specialty Care Team Description 02/04/2022 Office Visit Orthopedic Surgery Deon Herrera M.D. [address] [place], [place] [phone] (Wo rk) documented as of this encounter Visit Diagnoses Not on filedocumented in this encounter
--- OUTSIDE RECORDS SUMMARY | 2022-01-21 09:05 | XMS_ITS | Encounter Summary ---
:1955 Author Organization [facility] Address [address] [place] [address] Care Team Providers Name Role Phone Unavailable Primary Care Provider Unavailable Encounter Details Date Type Department Care Team Description 01/28/2013 Hospital Encounter HX [facility] Guido Man M.D. [address] [place] [address], [address] [place] [address] (Wo rk) Social History [...] do you attend yazidi or Never 2021 buddhist services? Do you [...] Comments Blood Pressure 110/60 01/28/2013 1:00 PM PULVERIZER TENDER Pulse - - Temperature - - Respiratory Rate - - Oxygen Saturation - - Inhaled Oxygen Concentration - - Weight 115 kg (253 lb 1.4 oz) 01/28/2013 1:00 PM PULVERIZER TENDER Height - - Body Mass Index 37.49 [...] Man M.D. - 01/28/2013 12:50 PM CST [id number] CHIEF COMPLAINT / REASON FOR VISIT Follow-up low back and bilateral lower extremity pain and right greater than left foot pain. HISTORY OF PRESENT ILLNESS Ms. Santamaria returns today. Since I last saw her, she has been receiving child care attendant school as well as scheduled to be in aquatic therapy tomorrow. She reports that she has been improved overall. She did have a flare of her low back pain primarily involving the right side of low back approximately 3 weeks ago and with the use of the child care attendant school that has helped those symptoms. She denies [...] time 20 minutes. Yobani Man M.D./madelaine cc: [facility] Electronically Signed By: YOBANI MAN MD On: 02/01/2013 02:42 PM Modified by and Electronically Signed by: YOBANI MAN MD On: 02/01/2013 02:42 PM Source: [facility] MHSDOLBEYNONRADSYS Document Id: [id number] ERIZER TENDER documented in this encounter Procedure Notes Yobani [...] MAN MD On: 02/01/2013 02:41 PM Source: [facility] MHSDOLBEYNONRADSYS Document Id: [id number] ERIZER TENDER documented in this encounter Miscellaneous Notes Miscellaneous - Francoise Avila P.A.-C. - 01/28/2013 3:16 PM CST Reminder Msg Document Contains Addenda Addendum by FRANCOISE AVILA on 19 February 2013 16:32:11 PULVERIZER TENDER She was busy right now, she will call me back when she has time. Addendum by YOBANI MAN MD on 16 February 2013 08:46:55 PULVERIZER TENDER From: YOBANI MAN MD To: FRANCOISE AVILA; Sent: 02/16/2013 08:46:55 PULVERIZER TENDER Show up: 02/16/2013 08:46:00 PULVERIZER TENDER Subject: RE: Reminder That would be fine. She may be a candidate to have RF performed at different levels based on her pain. Addendum by FRANCOISE AVILA on 15 February 2013 11:22:02 PULVERIZER TENDER From: FRANCOISE AVILA To: YOBANI MAN MD; Sent: 02/15/2013 11:22:02 PULVERIZER TENDER Show up: 02/15/2013 11:18:00 PULVERIZER TENDER Subject: RE: Reminder Msg Mukherjee reports that her right foot is feeling better since the injection. She also states that the left foot is feeling much better as well, so she doesn't want to do that one right now. She had RF done in January in [place] which helped her low back and B leg pain a lot, but she is still bothered by low back pain. She is wondering if she should go to the Pain clinic in [place] for a consult to see what other options there are. From: FRANCOISE AVILA ( Physical Medicine and Rehabilitation Staff) To: FRANCOISE AVILA; Sent: 01/28/2013 15:16:32 PULVERIZER TENDER Show up: 02/11/2013 15:16:00 PULVERIZER TENDER Subject: Reminder Please Remember to: see how she is feeling after bursa inj PATIENT: ( ) Call Patient ( ) Ask Patient to ( ) ( ) Call Relative ( ) Schedule Patient ( ) ( ) Call for Communication Coordinator ( ) Follow up on Results ( ) Other: PROVIDER: ( ) Call Physician ( ) Call Pharmacist ( ) Call Lab ( ) Other: Special Instructions: Comments: Source: [facility] POWERCHART Document Id: [id number] Electronically signed by Conversion, [facility] Navigation Officer [id number] at 08/14/2016 1:12 AM CDT Miscellaneous - Yobani Man M.D. - 01/28/2013 2:20 PM CST Ambulatory Patient Summary [facility] [facility] [address] [place] [address] Visit Information Name: FANTA SANTAMARIA [facility] Number: [id number] Current Date: 01/28/2013 14:20:50 [...] appointment detail needed. Your Goals/Additional instructions: Source: [facility] POWERCHART Document Id: [id number] ERIZER TENDER Miscellaneous - Yobani Man M.D. - 01/28/2013 2:20 PM CST Ambulatory [place] [address] Visit Information Name: EMMAFANTA AVERY [facility] Number: [id number] Visit Date: 01/28/2013 14:20:50 [...] your provider for clarification. Additional Information: Source: [facility] [employer]aze.io Document Id: [id number] ERIZER TENDER Miscellaneous - Francoise Avila P.A.-C. - 01/28/2013 1:00 PM CST Adult Utility Worker [place] Intake/History Adult Utility Worker [place] Intake/History Entered On: 01/28/2013 13:03 PULVERIZER TENDER Performed On: 01/28/2013 13:00 PULVERIZER TENDER by FRANCOISE AVILA Intake Systolic Blood Pressure : 110 mmHg Diastolic Blood Pressure : 60 mmHg NIBP Mean : 77 mmHg BP Location : Right upper extremity Blood Pressure Cuff Size : Large Actual Weight : 114.8 kg(Converted to: 253 lb 1 oz) Weight Source : Standing scale Dosing Weight Clinic : 114.8 kg FRANCOISE AVILA - 01/28/2013 13:00 PULVERIZER TENDER General Info Information Given By : Patient Preferred Communication Mode : Verbal Languages : Algerian FRANCOISE AVILA - 01/28/2013 13:00 PULVERIZER TENDER Subjective Pain Symptoms : No FRANCOISE AVILA - 01/28/2013 13:00 PULVERIZER TENDER Dependent Habits Tobacco Use/Currently Using : No Exposure to Tobacco Smoke : Other: never Smoking Status : Never smoker FRANCOISE AVILA - 01/28/2013 13:00 PULVERIZER TENDER Source: [facility] [employer] Document Id: [id number] PULVERIZER TENDER!20 ERIZER TENDER documented in this encounter Plan of Treatment Upcoming Encounters Date Type Specialty Care Team Description 02/04/2022 Office Visit Orthopedic Surgery Deon Herrera M.D. [address] [place], [place] [phone] (Wo rk) documented as of this encounter Visit Diagnoses Not on filedocumented in this encounter
--- OUTSIDE RECORDS SUMMARY | 2022-01-21 09:05 | XMS_ITS | Encounter Summary ---
:1955 Author Organization [facility] Address [address] [place] [address] Care Team Providers Name Role Phone Unavailable [...] do you attend judaism or Never 2021 spiritism services? Do you [...] Orthopedic Surgery Deon Herrera M.D. [address] [place], [place] [phone] (Wo rk) documented as of this encounter Visit Diagnoses Not on filedocumented in this encounter
--- OUTSIDE RECORDS SUMMARY | 2022-01-21 09:05 | XMS_ITS | Encounter Summary ---
:1955 Author Organization [facility] Address [address] [place] [address] Care Team Providers Name Role Phone Unavailable Primary Care Provider Unavailable Encounter Details Date Type Department Care Team Description 06/25/2013 Hospital Encounter HX NO MAPPING Clay Man M.D. [address] [place] [address] , [address] [place] [address] (Wo rk) Social History Tobacco [...] do you attend anabaptism or Never 2021 spiritism services? Do you [...] Orthopedic Surgery Deon Herrera M.D. [address] [place], [place] [phone] (Wo rk) documented as of this encounter Visit Diagnoses Not on filedocumented in this encounter
--- OUTSIDE RECORDS SUMMARY | 2022-01-21 09:05 | XMS_ITS | Encounter Summary ---
:1955 Author Organization [facility] Address [address] [place] [address] Care Team Providers Name Role Phone Unavailable Primary Care Provider Unavailable Encounter Details Date Type Department Care Team Description 03/21/2014 Hospital Encounter HX [facility] Guido Man M.D. [address] [place] [address], [address] [place] [address] (Wo rk) Social History Tobacco [...] do you attend tenriism or Never 2021 jain services? Do you [...] Comments Blood Pressure 124/70 03/21/2014 3:47 PM DIRECTOR CENTER Pulse - - Temperature - - Respiratory Rate - - Oxygen Saturation - - Inhaled Oxygen Concentration - - Weight 120 kg (264 lb 8.8 oz) 03/21/2014 3:47 PM DIRECTOR CENTER Height - - Body Mass Index 39.18 [...] Man M.D. - 03/21/2014 3:27 PM CST [id number] CHIEF COMPLAINT/REASON FOR VISIT Follow up low back pain. New issue of left chest wall pain, left shoulder pain and bilateral foot pain. HISTORY OF PRESENT ILLNESS Ms. Adames returns today in followup. She had right L2-L3 and L3-L4 radiofrequency denervation performed on November 09 and left L2-L3 and L3-L4 facet joint radiofrequency denervation performed at [place] on November 18 and has found both [...] pain. She did see Dr. Emery in [place] and had EKG performed as well as [...] MAN MD On: 03/24/2014 01:50 PM Source: [facility] MHSDOLBEYNONRADSYS Document Id: [id number] CTOR CENTER documented in this encounter Miscellaneous Notes Miscellaneous - Yobani Man M.D. - 03/21/2014 4:40 PM CST Ambulatory Patient Summary [address] [id number] Visit Information Name: YAZ MAYERS [facility] Number: [id number] Current Date: 03/21/2014 16:40:21 Physicians Attending Provider: YOBANI MAN MD Primary Care Provider: PCP, ELSEWHERE NICOLASLuciano GALOMULTANIYAZ ASHBY has been given the following list [...] appointment detail needed. Your Goals/Additional instructions: Source: [facility] POWERCHART Document Id: [id number] CTOR CENTER Miscellaneous - Yobani Man M.D. - 03/21/2014 4:40 PM CST Ambulatory Discharge Medication List [address] [id number] Visit Information Name: YAZ MAYERS [facility] Number: [id number] Visit Date: 03/21/2014 16:40:19 Attending [...] MD Signed On:21-MAR-2014 16:39:41 Additional Information: Source: [facility] POWERCHART Document Id: [id number] CTOR CENTER Miscellaneous - Kate Giraldo L.PCandyN. - 03/21/2014 3:47 PM CST Adult Cut Off Machine Unloader Intake/History Adult Cut Off Machine Unloader Intake/History Entered On: 03/21/2014 15:48 DIRECTOR CENTER Performed On: 03/21/2014 15:47 DIRECTOR CENTER by KATE GIRALDO LPN Intake Systolic Blood Pressure : 124 mmHg Diastolic Blood Pressure : 70 mmHg NIBP Mean : 88 mmHg BP Location : Left upper extremity Blood Pressure Cuff Size : Large Actual Weight : 120.0 kg(Converted to: 264 lb 9 oz) Dosing Weight Clinic : 120 kg KATE GIRALDODeb VARGAS - 03/21/2014 15:47 DIRECTOR CENTER General Info Information Given By : Patient Languages : Azerbaijani Is Patient Female and 13-50 no hysterectomy : No KATE GIRALDODeb AVRGAS - 03/21/2014 15:47 DIRECTOR CENTER Subjective Pain Symptoms : No GIRALDOMARCY ARDEN VARGAS - 03/21/2014 15:47 DIRECTOR CENTER Dependent Habits Tobacco Use/Currently Using : No Exposure to Tobacco Smoke : Other: never Smoking Status : Never smoker KATE GIRALDO ARDEN VARGAS - 03/21/2014 15:47 DIRECTOR CENTER ID Screen Travel Within Last 21 Days : KATE Lua ARDEN VARGAS - 03/21/2014 15:47 DIRECTOR CENTER Source: [employer] Document Id: [id number] DIRECTOR CENTER!21 CTOR CENTER documented in this encounter Plan of Treatment Upcoming Encounters Date Type Specialty Care Team Description 02/04/2022 Office Visit Orthopedic Surgery Deon Herrera M.D. [address] [place], [place] [phone] (Wo rk) documented as of this encounter Visit Diagnoses Not on filedocumented in this encounter
--- OUTSIDE RECORDS SUMMARY | 2022-01-21 09:05 | XMS_ITS | Encounter Summary ---
:1955 Author Organization [facility] Address [address] [place] [address] Care Team Providers Name Role Phone Unavailable [...] do you attend quaker or Never 2021 islam services? Do you [...] Orthopedic Surgery Deon Herrera M.D. [address] [place], [place] [phone] (Wo rk) documented as of this encounter Visit Diagnoses Not on filedocumented in this encounter
--- OUTSIDE RECORDS SUMMARY | 2022-01-21 09:05 | XMS_ITS | Encounter Summary ---
:1955 Author Organization [facility] Address [address] [place] [address] Care Team Providers Name Role Phone Unavailable Primary Care Provider Unavailable Encounter Details Date Type Department Care Team Description 07/10/2012 Hospital Encounter HX [facility]R Guido Man M.D. [address] [place] [address], [address] [place] [address] (Wo rk) Social History Tobacco [...] do you attend mormon or Never 2021 hinduism services? Do you [...] phone number ( ) Source: [facility] POWERCHART Document Id: [id number] Electronically signed by Priya [facility] Marketing Finance Specialist [id number] at 08/14/2016 9:47 AM CDT Telephone Encounter [...] phone number ( ) Source: [facility] POWERCHART Document Id: [id number] Electronically signed by Priya, [facility] Marketing Finance Specialist [id number] at 08/14/2016 9:47 AM CDT Telephone Encounter [...] phone number ( ) Source: [facility] POWERCHART Document Id: [id number] Electronically signed by Priya [facility] Marketing Finance Specialist [id number] at 08/14/2016 9:47 AM CDT Telephone Encounter - Yobani Man M.D. - 07/13/2012 12:00 AM CDT [id number] I phoned Ms. Santamaria today to discuss [...] MAN MD On: 07/15/2012 10:41 AM Source: [facility] MHSDOLBEYNONRADSYS Document Id: [id number] Miscellaneous - Yobani Man M.D. - 07/10/2012 2:30 PM CDT [place] [address] Visit Information Name: FANTA SANTAMARIA [facility] Number: [id number] Current Date: 07/10/2012 14:30:52 [...] Appointments found Your Goals/Additional instructions: Source: [facility] POWERCHART Document Id: [id number] Miscellaneous - Yobani Man M.D. - 07/10/2012 2:30 PM CDT [place] [address] Visit Information Name: FANTA SANTAMARIA [facility] Number: [id number] Visit Date: 07/10/2012 14:30:51 [...] provider for clarification. Additional Information: Source: [facility] RubikloudCHART Document Id: [id number] Miscellaneous - Francoise Avila P.A.-C. - 07/10/2012 1:07 PM CDT Adult Author Intake/History Adult Author Intake/History Entered On: 07/10/2012 13:07 CDT Performed [...] Information Given By : Patient Languages : Citizen Of [place] FRANCOISE AVILA - 07/10/2012 13:07 CDT Subjective Pain Symptoms : No FRANCOISE AVILA - 07/10/2012 13:07 CDT Dependent Habits Tobacco Use/Currently Using : No Exposure to Tobacco Smoke : Other: never Smoking Status : Never smoker FRANCOISE AVILA - 07/10/2012 13:07 CDT Source: [facility] TrackIF Document Id: [id number] CDT!19 documented in this encounter Plan of Treatment Upcoming Encounters Date Type Specialty Care Team Description 02/04/2022 Office Visit Orthopedic Surgery Deon Herrera M.D. [address] [place] [phone] (Wo rk) documented as of this encounter Visit Diagnoses Not on filedocumented in this encounter
--- OUTSIDE RECORDS SUMMARY | 2022-01-21 09:05 | XMS_ITS | Encounter Summary ---
:1955 Author Organization [facility] Address [address] [place] [address] Care Team Providers Name Role Phone Unavailable Primary Care Provider Unavailable Encounter Details Date Type Department Care Team Description 07/05/2014 Hospital Encounter HX [facility] Guido Man M.D. [address] [place] [address], [address] [place] [address] (Wo rk) Social History Tobacco [...] do you attend mosque or Never 2021 alevism services? Do you [...] Man M.D. - 07/05/2014 2:14 PM CDT [id number] CHIEF COMPLAINT/REASON FOR VISIT Low back and [...] AM Modified by and Electronically Signed by: YOBNAI MAN MD On: 07/07/2014 09:22 AM Source: [facility] MHSDOLBEYNONRADSYS Document Id: [id number] documented in this encounter Miscellaneous Notes Miscellaneous [...] ( ) Daughter ( ) Son ( [facility] [phone]; [phone] ) Pharmacy ( ) Other: Provider: juan Pharmacy: Name of Medications Needing Refill: lyrica 150 mg Last Refill Date: 09/03/14 qty 60 Additional Information: 1 tab po daily Last / Future Appointment: 08/24/14 Disposition: ( x ) Send to Pharmacy ( ) Call to Pharmacy ( ) 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 Thank you, Nba Source: [facility] Nutricate Document Id: [id number] Electronically signed by Conversion, [facility] [address] Judge [id number] at 08/11/2016 4:42 PM CDT Miscellaneous - [...] Patient ( ) ( ) Call for Mold Injector ( ) Follow up on Results ( ) Other: PROVIDER: ( ) Call Physician ( ) Call Pharmacist ( ) Call Lab ( ) Other: Special Instructions: Comments: Source: [facility] POWERCHART Document Id: [id number] Electronically signed by Conversion, [facility] [address] Judge [id number] at 08/11/2016 4:42 PM CDT Telephone Encounter - Yobani Man M.D. - 07/13/2014 12:00 AM CDT [id number] I spoke with Ms. HaLucianoNerissa on the phone today. She had an MRI performed of her lumbar spine onJuly 08 at [facility]. Significant findings include at L2-L3, there is [...] MAN MD On: 07/13/2014 05:59 PM Source: [facility] MHSDOLBEYNONRADSYS Document Id: [id number] Miscellaneous - Yobani Man M.D. - 07/05/2014 3:15 PM CDT Ambulatory Patient Summary [place] [facility] [address] [place], [place] [id number] Visit Information Name: YAZ MAYERS [facility] Number: [id number] Current Date: 07/05/2014 15:15:26 Physicians [...] appointment detail needed. Your Goals/Additional instructions: Source: [facility] POWERCHART Document Id: [id number] Miscellaneous - Yobani Man M.D. - 07/05/2014 3:15 PM CDT Ambulatory Discharge Medication List [address] [id number] Visit Information Name: YAZ MAYERS [facility] Number: [id number] Visit Date: 07/05/2014 15:15:24 Attending [...] MD Signed On:05-JUL-2014 15:14:48 Additional Information: Source: [facility] POWERCHART Document Id: [id number] Miscellaneous - Nba Benson - 07/05/2014 2:32 PM CDT Adult Wall Washer Intake/History Adult Wall Washer Intake/History Entered On: 07/05/2014 14:33 CDT Performed [...] Preferred Communication Mode : Verbal Languages : Bahraini Is Patient Female and 13-50 no hysterectomy [...] NBA Covington - 07/05/2014 14:32 CDT Source: [facility] POWERCHART Document Id: [id number] CDT!25 documented in this encounter Plan of Treatment Upcoming Encounters Date Type Specialty Care Team Description 02/04/2022 Office Visit Orthopedic Surgery Deon Herrera M.D. [address] [place] [phone] (Wo rk) documented as of this encounter Visit Diagnoses Not on filedocumented in this encounter
--- OUTSIDE RECORDS SUMMARY | 2022-01-21 09:05 | XMS_ITS | Encounter Summary ---
:1955 Author Organization [facility] Address [address] [place] [address] Care Team Providers Name Role Phone Unavailable Primary Care Provider Unavailable Encounter Details Date Type Department Care Team Description 08/23/2013 Hospital Encounter HX [facility] LULR Guido Man M.D. [address] [place] [address], [address] [place] [address] (Wo rk) Social History Tobacco [...] do you attend uatsdin or Never 2021 restorationist services? Do you [...] Man M.D. - 08/23/2013 10:31 AM CDT [id number] CHIEF COMPLAINT/REASON FOR VISIT Low back pain. [...] MAN MD On: 08/25/2013 11:05 AM Source: [facility] MHSDOLBEYNONRADSYS Document Id: [id number] documented in this encounter Miscellaneous Notes Miscellaneous - Samara Manjarrez R.N. - 09/01/2013 8:50 AM CDT Lyrica Document Contains Addenda Addendum by NBA BENSON on 02 September 2013 08:47:44 CDT Done. Addendum by YOBANI MAN MD on 01 September 2013 17:39:02 CDT From: YOBANI MAN MD To: NBA BESNON; Sent: 09/01/2013 17:39:02 CDT Subject: FW: Lyrica Please call. Thanks. Addendum by YOBANI MAN MD on 01 September 2013 17:38:48 CDT Submitted: Order:pregabalin (Lyrica 150 mg oral capsule) 1 cap(s) PO 2xDay Qty: 60 cap(s) Refills: 5 Substitutions Allowed Don't Print - called to pharmacy (Rx) Signed by YOBANI MAN MD 09/01/2013 17:38:37 From: SAMARA MANJARREZ ([facility] Refill) To: YOBANI MAN MD; Sent: 09/01/2013 08:50:22 CDT Subject: Lyrica Caller is: ( ) Patient ( ) Mother ( ) Father ( ) Spouse ( ) Daughter ( ) Son ( [facility] [place] ) Pharmacy ( ) Other: Provider: [facility]: Name of Medications Needing Refill: Lyrica 150 mg Last Refill Date: 08/02/13 qty 60 Additional Information: 1 cap po BID Last / Future Appointment: 08/23/13; 09/09/13 Disposition: ( x ) Send to Pharmacy ( ) Call to Pharmacy ( ) 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 - 08/23/2013 11:32 AM CDT Ambulatory Patient Summary [address] [id number] Visit Information Name: YAZ SANTAMARIA [facility] Number: [id number] Current Date: 08/23/2013 11:32:45 Physicians [...] appointment detail needed. Your Goals/Additional instructions: Source: [facility] POWERCHART Document Id: [id number] Miscellaneous - Yobani Man M.D. - 08/23/2013 11:32 AM CDT Ambulatory Discharge Medication List [address] [id number] Visit Information Name: YAZ SANTAMARIA [facility] Number: [id number] Visit Date: 08/23/2013 11:32:42 Attending [...] MD Signed On:23-AUG-2013 11:32:12 Additional Information: Source: [facility] POWERCHART Document Id: [id number] Miscellaneous - Nba Benson - 08/23/2013 11:08 AM CDT Adult Guidance And Control System Engineer Intake/History Document Has Been Updated Adult Guidance And Control System Engineer Intake/History Entered On: 08/23/2013 11:10 CDT Performed [...] Preferred Communication Mode : Verbal Languages : Citizen Of [place] NBA BENSON - 08/23/2013 11:08 CDT Subjective [...] AVILA; Reviewed Date: 08/23/2013 11:06 CDT Source: [facility] POWERCHART Document Id: [id number] CDT!20 documented in this encounter Plan of Treatment Upcoming Encounters Date Type Specialty Care Team Description 02/04/2022 Office Visit Orthopedic Surgery Deon Herrera M.D. [address] [place] [phone] (Wo rk) documented as of this encounter Visit Diagnoses Not on filedocumented in this encounter
--- OUTSIDE RECORDS SUMMARY | 2022-01-21 09:06 | XMS_ITS | Encounter Summary ---
:1955 Author Organization [facility] Address [address] [place] [address] Care Team Providers Name Role Phone Unavailable Primary Care Provider Unavailable Encounter Details Date Type Department Care Team Description 07/30/2011 Hospital Encounter HX [facility] LULR Guido Man M.D. [address] [place] [address], [address] [place] [address] (Wo rk) Social History Tobacco [...] do you attend mandaen or Never 2021 episcopal services? Do you [...] Man M.D. - 07/30/2011 12:00 AM CDT [id number] CHIEF COMPLAINT / REASON FOR VISIT Right [...] she saw her primary care physician in [place]. He ordered a MRI of the right [...] Signed By: YOBANI MAN MD On: 08/09/2011 11:52 AM Modified by and Electronically Signed by: YOBANI MAN MD On: 08/09/2011 11:52 AM Source: [facility] MHSDOLBEYNONRADSYS Document Id: [id number] Yobani Man M.D. - 07/30/2011 12:00 AM CDT [id number] DIAGNOSIS 1. Right knee pain 2. Right [...] MAN MD On: 08/09/2011 11:51 AM Source: [facility] MHSDOLBEYNONRADSYS Document Id: [id number] documented in this encounter Miscellaneous Notes Miscellaneous [...] Patient ( ) ( ) Call for Electric Track Switch Maintainer ( ) Follow up on Results ( ) Other: PROVIDER: ( ) Call Physician ( ) Call Pharmacist ( ) Call Lab ( ) Other: Special Instructions: Comments: Source: [facility] POWERCHART Document Id: [id number] Electronically signed by Priya, [facility] Consumer Insight Manager [id number] at 08/18/2016 12:11 AM CDT Miscellaneous - [...] Patient ( ) ( ) Call for Electric Track Switch Maintainer ( ) Follow up on Results ( ) Other: PROVIDER: ( ) Call Physician ( ) Call Pharmacist ( ) Call Lab ( ) Other: Special Instructions: Comments: Source: [facility] POWERCHART Document Id: [id number] Electronically signed by Priya, [facility] Consumer Insight Manager [id number] at 08/18/2016 12:11 AM CDT Miscellaneous - Yobani Man M.D. - 07/30/2011 2:17 PM CDT [place] [address] Visit Information Name: YAZ SANTAMARIA Current Date: [...] No Appointments found Your Goals/Additional instructions: Source: [facility] POWERCHART Document Id: [id number] Yobani Brady M.D. - 07/30/2011 2:17 PM CDT [place] [address] Visit Information Name: YAZ SANTAMARIA Visit Date: [...] your provider for clarification. Additional Information: Source: [facility] POWERCHART Document Id: [id number] Any - Francoise Avila P.A.-C. - 07/30/2011 10:49 AM CDT Adult Seismic Interpreter Intake/History Adult Seismic Interpreter Intake/History Entered On: 07/30/2011 10:49 CDT Performed [...] By: FRANCOISE AVILA; Reviewed Date: 04/25/2011 13:43 SCRATCH POLISHER Source: [facility] POWERCHART Document Id: [id number] CDT!16 documented in this encounter Plan of Treatment Upcoming Encounters Date Type Specialty Care Team Description 02/04/2022 Office Visit Orthopedic Surgery Deon Herrera M.D. [address] [place] [phone] (Wo rk) documented as of this encounter Visit Diagnoses Not on filedocumented in this encounter
--- OUTSIDE RECORDS SUMMARY | 2022-01-21 09:06 | XMS_ITS | Encounter Summary ---
:1955 Author Organization [facility] Address [address] [place] [address] Care Team Providers Name Role Phone Unavailable [...] do you attend amish or Never 2021 jewish services? Do you [...] Orthopedic Surgery Deon Herrera M.D. [address] [place], [place] [phone] (Wo rk) documented as of this encounter Visit Diagnoses Not on filedocumented in this encounter
--- OUTSIDE RECORDS SUMMARY | 2022-01-21 09:06 | XMS_ITS | Encounter Summary ---
:1955 Author Organization [facility] Address [address] [place] [address] Care Team Providers Name Role Phone Unavailable Primary Care Provider Unavailable Encounter Details Date Type Department Care Team Description 09/11/2011 Hospital Encounter HX NO MAPPING Clay Man M.D. [address] [place] [address] , [address] [place] [address] (Wo rk) Social History Tobacco [...] do you attend holiness or Never 2021 christianity services? Do you [...]
--- OUTSIDE RECORDS SUMMARY | 2022-01-21 09:06 | XMS_ITS | Encounter Summary ---
:1955 Author Organization [facility] Address [address] [place] [address] Care Team Providers Name Role Phone Unavailable [...] do you attend mormon or Never 2021 baptist services? Do you [...] Orthopedic Surgery Deon Herrera M.D. [address] [place], [place] [phone] (Wo rk) documented as of this encounter Visit Diagnoses Not on filedocumented in this encounter
--- OUTSIDE RECORDS SUMMARY | 2022-01-21 09:06 | XMS_ITS | Encounter Summary ---
:1955 Author Organization [facility] Address [address] [place] [address] Care Team Providers Name Role Phone Unavailable Primary Care Provider Unavailable Encounter Details Date Type Department Care Team Description 03/20/2012 Hospital Encounter HX [facility] FBCV LULR Guido Man M.D. [address] [place] [address], [address] [place] [address] (Wo rk) Social History Tobacco [...] do you attend mandaen or Never 2021 bahai services? Do you [...] Comments Blood Pressure 138/70 03/20/2012 11:43 AM SCREENER OPERATOR Pulse - - Temperature - - Respiratory Rate - - Oxygen Saturation - - Inhaled Oxygen Concentration - - Weight 118 kg (259 lb 11.2 oz) 03/20/2012 11:43 AM SCREENER OPERATOR Height - - Body Mass Index 38.46 [...] Man M.D. - 03/20/2012 11:15 AM CST [id number] CHIEF COMPLAINT / REASON FOR VISIT Follow-up right greater than left foot pain. HISTORY OF PRESENT ILLNESS Ms. Caro returns today in followup. She had a MRI performed of the right foot on March 11, 2012 in [place]. I reviewed the images with her in [...] MAN MD On: 03/30/2012 10:42 AM Source: [facility] MHSDOLBEYNONRADSYS Document Id: [id number] ENER OPERATOR documented in this encounter Procedure Notes Yobani [...] MAN MD On: 03/30/2012 10:41 AM Source: [facility] MHSDOLBEYNONRADSYS Document Id: [id number] ENER OPERATOR documented in this encounter Miscellaneous Notes Telephone Encounter - Francoise Avila P.A.-C. - 04/14/2012 10:02 AM SCREENER OPERATOR Phone Message Document Contains Addenda Addendum by YOBANI MAN MD on 14 April 2012 14:51:51 SCREENER OPERATOR From: YOBANI MAN MD To: FRANCOISE AVILA; Sent: 04/14/2012 14:51:51 SCREENER OPERATOR Subject: RE: Phone Message That would be reasonable. Please arrange. From: FRANCOISE AVILA To: YOBANI MAN MD; Sent: 04/14/2012 10:02:28 SCREENER OPERATOR Subject: Phone Message Caller is: ( ) [...] cell phone number ( ) Source: [facility] POWERCHART Document Id: [id number] Telephone Encounter - Francoise Avila P.A.-C. - 04/01/2012 10:25 AM SCREENER OPERATOR Phone Message From: FRANCOISE AVILA To: YOBANI MAN MD; Sent: 04/01/2012 10:25:31 SCREENER OPERATOR Subject: Phone Message Caller is: ( ) [...] cell phone number ( ) Source: [facility] POWERCHART Document Id: [id number] Telephone Encounter - Yobani Man M.D. - 03/31/2012 12:00 AM CST [id number] I phoned Ms. Caro today. She reports [...] including walking and yesterday went to the [employer] [facility] and did have some increased discomfort [...] MAN MD On: 04/06/2012 10:33 AM Source: [facility] MHSDOLBEYNONRADSYS Document Id: [id number] ENER OPERATOR Telephone Encounter - Yobani Man M.D. - 03/27/2012 12:00 AM CST [id number] I spoke with Ms. Caro on the [...] MAN MD On: 04/06/2012 08:38 AM Source: [facility] MHSDOLBEYNONRADSYS Document Id: [id number] ENER OPERATOR Miscellaneous - Francoise Avila P.A.-C. - 03/25/2012 11:09 AM CST Reminder Msg From: FRANCOISE AVILA To: FRANCOISE AVILA; Sent: 03/25/2012 11:09:38 SCREENER OPERATOR Show up: 04/03/2012 11:09:00 SCREENER OPERATOR Subject: Reminder Msg Please Remember to: see how B feet are feeling after inj PATIENT: ( ) Call Patient ( ) Ask Patient to ( ) ( ) Call Relative ( ) Schedule Patient ( ) ( ) Call for Accountant Bookkeeper ( ) Follow up on Results ( ) Other: PROVIDER: ( ) Call Physician ( ) Call Pharmacist ( ) Call Lab ( ) Other: Special Instructions: Comments: Source: [facility] POWERCHART Document Id: [id number] Electronically signed by Priya [facility] Hospital[facility] Turf Farmer [id number] at 08/14/2016 2:29 PM CDT Telephone Encounter - Yobani Man M.D. - 03/24/2012 12:00 AM CST [id number] I returned a telephone call today to [...] MAN MD On: 03/30/2012 10:35 AM Source: [facility] MHSDOLBEYNONRADSYS Document Id: [id number] ENER OPERATOR Miscellaneous - Yobani Man M.D. - 03/20/2012 2:25 PM CST [place] [address] Visit Information Name: YAZ CARO [facility] Number: [id number] Current Date: 03/20/2012 14:25:49 Physicians [...] No Appointments found Your Goals/Additional instructions: Source: [facility] POWERCHART Document Id: [id number] ENER OPERATOR Miscellaneous - Yobani Man M.D. - 03/20/2012 2:25 PM CST [place] [address] Visit Information Name: BETHANYIEYAZ [facility] Number: [id number] Visit Date: 03/20/2012 14:25:47 Attending [...] your provider for clarification. Additional Information: Source: [facility] NightOwlCHART Document Id: [id number] ENER OPERATOR Miscellaneous - Francoise Avila P.A.-C. - 03/20/2012 11:43 AM CST Adult Overedge Sewer Intake/History Adult Overedge Sewer Intake/History Entered On: 03/20/2012 11:44 SCREENER OPERATOR Performed On: 03/20/2012 11:43 SCREENER OPERATOR by FRANCOISE AVILA Intake Systolic Blood Pressure : 138mmHg Diastolic Blood Pressure : 70mmHg NIBP Mean : 93mmHg BP Location : Right upper extremity Blood Pressure Cuff Size : Large Actual Weight : 117.8kg(Converted to: 259lb 11oz) Weight Source : Standing scale Dosing Weight Clinic : 117.80kg FRANCOISE AVILA - 03/20/2012 11:43 SCREENER OPERATOR Subjective Pain Symptoms : No FRANCOISE AVILA - 03/20/2012 11:43 SCREENER OPERATOR Dependent Habits Tobacco Use/Currently Using : No Exposure to Tobacco Smoke : Other: never Smoking Status : Never smoker FRANCOISE AVILA - 03/20/2012 11:43 SCREENER OPERATOR Allergy Allergies (Active) penicillins Estimated Onset Date: Unspecified ; Created By: FRANCOISE AVILA; Reaction Status:Active ; Category: Drug ; Substance: penicillins ; Type: Allergy ; Updated By: FRANCOISE AVILA; Reviewed Date: 03/05/2012 14:12 SCREENER OPERATOR Source: [facility] NightOwlCHART Document Id: [id number] ENER OPERATOR documented in this encounter Plan of Treatment Upcoming Encounters Date Type Specialty Care Team Description 02/04/2022 Office Visit Orthopedic Surgery Deon Herrera M.D. [address] [place] [phone] (Wo rk) documented as of this encounter Visit Diagnoses Not on filedocumented in this encounter
--- OUTSIDE RECORDS SUMMARY | 2022-01-21 09:06 | XMS_ITS | Encounter Summary ---
:1955 Author Organization [facility] Address [address] [place] [address] Care Team Providers Name Role Phone Unavailable Primary Care Provider Unavailable Encounter Details Date Type Department Care Team Description 05/06/2012 Hospital Encounter HX [facility] Rob Lemons M.D. [address] [place] [address], [address] [place] [address] (Wo rk) Social History Tobacco [...] do you attend samaritan or Never 2021 lutheran services? Do you [...] Visit Orthopedic Surgery Deon Herrera M.D. [address] [place], [place] [phone] (Wo rk) documented as of this encounter Visit Diagnoses Not on filedocumented in this encounter
--- OUTSIDE RECORDS SUMMARY | 2022-01-21 09:06 | XMS_ITS | Encounter Summary ---
:1955 Author Organization [facility] Address [address] [place] [address] Care Team Providers Name Role Phone Unavailable Primary Care Provider Unavailable Encounter Details Date Type Department Care Team Description 06/03/2012 Hospital Encounter HX [facility] FBCV LULR Guido Man M.D. [address] [place] [address], [address] [place] [address] (Wo rk) Social History Tobacco [...] do you attend pentecostal or Never 2021 episcopalian services? Do you [...] back cell phone number ( ) Source: [facility] POWERCHART Document Id: [id number] Electronically signed by Conversion, [facility] Contract Associate [id number] at 08/14/2016 10:40 AM CDT documented in this encounter Plan of Treatment Upcoming Encounters Date Type Specialty Care Team Description 02/04/2022 Office Visit Orthopedic Surgery Deon Herrera M.D. [address] [place], [place] [phone] (Wo rk) documented as of this encounter Visit Diagnoses Not on filedocumented in this encounter
--- OUTSIDE RECORDS SUMMARY | 2022-01-21 09:06 | XMS_ITS | Encounter Summary ---
:1955 Author Organization [facility] Address [address] [place] [address] Care Team Providers Name Role Phone Unavailable Primary Care Provider Unavailable Encounter Details Date Type Department Care Team Description 05/08/2011 Hospital Encounter HX NO MAPPING Clay Man M.D. [address] [place] [address] , [address] [place] [address] (Wo rk) Social History Tobacco [...] do you attend quaker or Never 2021 mormon services? Do you [...] Orthopedic Surgery Deon Herrera M.D. [address] [place], [place] [phone] (Wo rk) documented as of this encounter Visit Diagnoses Not on filedocumented in this encounter
--- OUTSIDE RECORDS SUMMARY | 2022-01-21 09:06 | XMS_ITS | Encounter Summary ---
:1955 Author Organization [facility] Address [address] [place] [address] Care Team Providers Name Role Phone Unavailable [...] do you attend pentecostal or Never 2021 yarsanism services? Do you [...] Orthopedic Surgery Deon Herrera M.D. [address] [place], [place] [phone] (Wo rk) documented as of this encounter Visit Diagnoses Not on filedocumented in this encounter
--- OUTSIDE RECORDS SUMMARY | 2022-01-21 09:06 | XMS_ITS | Encounter Summary ---
:1955 Author Organization [facility] Address [address] [place] [address] Care Team Providers Name Role Phone Unavailable [...] do you attend restorationist or Never 2021 catholic services? Do you [...] Orthopedic Surgery Deon Herrera M.D. [address] [place], [place] [phone] (Wo rk) documented as of this encounter Visit Diagnoses Not on filedocumented in this encounter
--- OUTSIDE RECORDS SUMMARY | 2022-01-21 09:06 | XMS_ITS | Encounter Summary ---
:1955 Author Organization [facility] Address [address] [place] [address] Care Team Providers Name Role Phone Unavailable Primary Care Provider Unavailable Encounter Details Date Type Department Care Team Description 04/16/2012 - Hospital Encounter HX [facility] FBCV PMTR Vivek Man, 04/17/2012 [address], [address] [place] [address] (Wo rk) Social History Tobacco [...] do you attend scientology or Never 2021 restorationist services? Do you [...] Surgery Deon Herrera M.D. [address] [place], [place] [phone] (Wo rk) documented as of this encounter Visit Diagnoses Not on filedocumented in this encounter
--- OUTSIDE RECORDS SUMMARY | 2022-01-21 09:06 | XMS_ITS | Encounter Summary ---
:1955 Author Organization [facility] Address [address] [place] [address] Care Team Providers Name Role Phone Unavailable Primary Care Provider Unavailable Encounter Details Date Type Department Care Team Description 03/05/2012 Hospital Encounter [facility]X [facility] Guido Man M.D. [address] [place] [address], [address] [place] [address] (Wo rk) Social History Tobacco [...] do you attend worship or Never 2021 quaker services? Do you [...] Comments Blood Pressure 128/76 03/05/2012 2:11 PM OXYGEN TANK FILLER Pulse - - Temperature - - Respiratory Rate - - Oxygen Saturation - - Inhaled Oxygen Concentration - - Weight 116 kg (256 lb 6.3 oz) 03/05/2012 2:11 PM OXYGEN TANK FILLER Height - - Body Mass Index 37.98 [...] Man M.D. - 03/05/2012 1:45 PM CST [id number] CHIEF COMPLAINT / REASON FOR VISIT Bilateral foot pain and low back pain. HISTORY OF PRESENT ILLNESS Ms. Caro returns today in followup. Since I last saw her, she did meet with physical therapy at [facility] in [place] and did have custom orthotics made. I [...] a right total knee arthroplasty performed at [place] by Dr. Gonzalez and is doing excellent [...] have her involved in physical therapy in [place] and we discussed this today and she [...] MAN MD On: 03/16/2012 01:04 PM Source: [facility] MHSDOLBEYNONRADSYS Document Id: [id number] EN TANK FILLER documented in this encounter Miscellaneous Notes Miscellaneous - Yobani Man M.D. - 03/05/2012 2:47 PM C[place] [address] Visit Information Name: YAZ CARO [facility] Number: [id number] Current Date: 03/05/2012 14:47:26 Physicians [...] Appointments found Your Goals/Additional instructions: Source: [facility] POWERCHART Document Id: [id number] EN TANK FILLER Miscellaneous - Yobani Man M.D. - 03/05/2012 2:47 PM CST [place] [address] Visit Information Name: YAZ CARO [facility] Number: [id number] Visit Date: 03/05/2012 14:47:25 Attending Provider: YOBANI MAN MD Primary Care Provider: ELVIA BOND MD NICOLASLucianoYAZ MATTSON has been given the following list [...] provider for clarification. Additional Information: Source: [facility] POWERCHART Document Id: [id number] EN TANK FILLER Miscellaneous - Francoise Avila P.A.-C. - 03/05/2012 2:11 PM CST Adult Correctional Program Specialist Intake/History Adult Correctional Program Specialist Intake/History Entered On: 03/05/2012 14:11 OXYGEN TANK FILLER Performed On: 03/05/2012 14:11 OXYGEN TANK FILLER by FRANCOISE AVILA Intake Systolic Blood Pressure : 128mmHg Diastolic Blood Pressure : 76mmHg NIBP Mean : 93mmHg BP Location : Left upper extremity Blood Pressure Cuff Size : Large Actual Weight : 116.3kg(Converted to: 256lb 6oz) Weight Source : Standing scale Dosing Weight Clinic : 116.30kg FRANCOISE AVILA - 03/05/2012 14:11 OXYGEN TANK FILLER Subjective Pain Symptoms : No FRANCOISE AVILA - 03/05/2012 14:11 OXYGEN TANK FILLER Dependent Habits Tobacco Use/Currently Using : No Exposure to Tobacco Smoke : Other: never Smoking Status : Never smoker FRANCOISE AVILA - 03/05/2012 14:11 OXYGEN TANK FILLER Allergy Allergies (Active) penicillins Estimated Onset Date: Unspecified ; Created By: FRANCOISE AVILA; Reaction Status:Active ; Category: Drug ; Substance: penicillins ; Type: Allergy ; Updated By: FRANCOISE AVILA; Reviewed Date: 07/30/2011 10:55 CDT Source: [facility] POWERCHART Document Id: [id number] EN TANK FILLER documented in this encounter Plan of Treatment Upcoming Encounters Date Type Specialty Care Team Description 02/04/2022 Office Visit Orthopedic Surgery Deon Herrera M.D. [address] [place], [place] [phone] (Wo rk) documented as of this encounter Visit Diagnoses Not on filedocumented in this encounter
--- OUTSIDE RECORDS SUMMARY | 2022-01-21 09:06 | XMS_ITS | Encounter Summary ---
:1955 Author Organization [facility] Address [address] [place] [address] Care Team Providers Name Role Phone Unavailable [...] do you attend buddhist or Never 2021 jewish services? Do you [...] AM Vital sig n result CDT from CD. Body Mass Index 37.06 12/18/2011 7:09 AM [...] Surgery Deon Herrera M.D. [address] [place], [place] [phone] (Wo rk) documented as [...] Time) with INR (12/21/2011 4:42 AM CDT) [facility] [employer] Method Time Signature Prothrombin 20.9 (H) 9.5 - [facility] Time, P 13.8 SEC [facility] INR 1.8 0.8 - 1.2 [facility] Specimen Anatomical Collection Method Collection Time Receive d Time (Source) Location / / Volume Laterality 12/21/2011 4:42 AM 2 4:42 CDT AM CDT Baudilio Burns M.D. LAB BLOOD ADD-ON Performing Organization Address City/State/ZIP Code Phon e Number [facility] LABORATORIES - [address] [place], [place] [address] [facility] (ABNORMAL) PT (Prothrombin Time) with INR (12/20/2011 4:37 AM CDT) [facility] [employer] Method Time Signature Prothrombin 17.2 (H) 9.5 - [facility] Time, P 13.8 SEC [facility] INR 1.5 0.8 - 1.2 [facility] Specimen Anatomical Collection Method Collection Time Receive d Time (Source) Location / / Volume Laterality 12/20/2011 4:37 AM 2 4:37 CDT AM CDT Baudilio Burns M.D. LAB BLOOD ADD-ON Performing Organization Address City/[facility]/ZIP Code Phon e Number [facility]ORATORIES - [address] [place] [address] [facility] (ABNORMAL) Electrolyte (Chem 4) Panel (12/19/2011 5:13 AM CDT) [facility] Method Time Signature Sodium, S 139 135 - 145 [facility] MMOL/L LABORATORIES - [facility] Chloride, S 102 100 - 108 [facility] MMOL/L LABORATORIES - [facility] BUN (Blood Urea 11 6 - 21 [facility] Nitrogen), S MG/DL LABORATORIES - [facility] Anion Gap 18 (H) 7 - 15 [facility] LABORATORIES - [facility] HX Bicarbonate, 19 (L) 22 - 29 [facility] P/S MMOL/L LABORATORIES - [facility] Creatinine 0.7 0.6 - 1.1 [facility] MG/DL LABORATORIES - [facility] eGFR >60 >60 [facility] Non-Black/Afric ML/MIN/BS LABORATORIES - an [place]ian A [facility] eGFR-Black/Afri >60 >60 [facility] can [place]ian ML/MIN/BS LABORATORIES - A [facility] Glucose, S 148 (H) 70 - 140 [facility] MG/DL LABORATORIES - [facility] Potassium, S 3.9 3.6 - 5.2 [facility] MMOL/L LABORATORIES - [facility] Specimen Anatomical Collection Method Collection Time Receive d Time (Source) Location / / Volume Laterality 12/19/2011 5:13 AM 2 5:13 CDT AM CDT Leodan Gonzalez M.D. LAB BLOOD ADD-ON Performing Organization Address City/State/ZIP Code Phon e Number [facility] LABORATORIES - [address] [place] [address] [facility] PT (Prothrombin Time) with INR (12/19/2011 5:12 AM CDT) [facility] Method Time Signature Prothrombin 13.4 9.5 - 13.8 [facility] Time, P SEC LABORATORIES - [facility] INR 1.1 0.8 - 1.2 [facility] LABORATORIES - [facility] Specimen Anatomical Collection Method Collection Time Receive d Time (Source) Location / / Volume Laterality 12/19/2011 5:12 AM 2 5:12 CDT AM CDT Leodan Gonzalez M.D. LAB BLOOD ADD-ON Performing Organization Address City/[facility]/ZIP Code Phon e Number [facility] LABORATORIES - [address] (ABNORMAL) CBC without Differential (12/19/2011 5:12 AM CDT) [facility] gist Method Time Signature Erythrocytes 3.88 (L) 3.90 - [facility] 5.03 LABORATORIES - X10(12)/L [facility] MCV 89.4 81.6 - [facility] 98.3 FL LABORATORIES - [facility] Hemoglobin 11.3 (L) 12.0 - [facility] 15.5 G/DL LABORATORIES - [facility] Hematocrit 34.7 (L) 34.9 - [facility] 44.5 % LABORATORIES - [facility] RBC Distrib 14.7 11.9 - [facility] Width 15.5 % LABORATORIES - [facility] Platelet Count 247 150 - 450 [facility] X10(9)/L LABORATORIES - [facility] Leukocytes 9.9 3.5 - [facility] 10.5 LABORATORIES - X10(9)/L [facility] Specimen Anatomical Collection Method Collection Time Receive d Time (Source) Location / / Volume Laterality 12/19/2011 5:12 AM 2 5:12 CDT AM CDT Leodan Gonzalez M.D. LAB BLOOD ADD-ON Performing Organization Address City/[facility]/ZIP Code Phon e Number [facility] LABORATORIES - [address] [place] [address] [facility] DX Knee 2 Views (12/18/2011 12:34 PM [...] P O purposes. Electronically signed by: ?? R. G. Swee MD ??[id number] 18-Dec-2011 12:39 Procedure Note Karthikeyan Wood M.D. - 06/14/2017Formatt ing of this note might be different from the original. 18-Dec-2011 12:34:00 Exam: R Knee 2vw AP /Lat Indications: Degenerative arthritis righ t knee. Right TKA. ORIGINAL REPORT - 18-Dec-2011 12:39:00 Right Knee 2vw AP/Lat: Right TKA is well seated. Negative for P O purposes. Electronically signed by: Burton Wood MD [id number] 18-Dec-2011 12:39 Baudilio Burns M.D. IMG DIAGNOSTIC IMAGING PROCE [facility] Hemoglobin (HGB), POCT (12/18/2011 12:21 PM CDT) P athologist Signature Hemoglobin, B 13.1 12.0 - [facility] 15.5 G/DL LABORATORIES [facility] Specimen Anatomical Collection Method Collection Time Receive d Time (Source) Location / / Volume Laterality 12/18/2011 12:21 12/18/2011 PM CDT 12:21 PM CDT Tho Polanco M.D. LAB POCT ORDERABLES - DEVICE Performing Organization Address City/[facility] Code Phon e Number [facility] LABORATORIES - [address] PT (Prothrombin Time) with INR (12/18/2011 12:20 PM CDT) Patholo gist Method Time Signature Prothrombin 11.8 9.5 - 13.8 [facility] Time, P SEC LABORATORIES - [facility] INR 1.0 0.8 - 1.2 [facility] Specimen Anatomical Collection Method Collection Time Receive d Time (Source) Location / / Volume Laterality 12/18/2011 12:20 12/18/2011 PM CDT 12:20 PM CDT Baudilio Burns M.D. LAB BLOOD ADD-ON Performing Organization Address City/[facility] Phon e Number [facility] LABORATORIES - [address] documented in this encounter Visit Diagnoses Not on filedocumented in this encounter
--- OUTSIDE RECORDS SUMMARY | 2022-01-21 09:06 | XMS_ITS | Encounter Summary ---
:1955 Author Organization [facility] Address [address] [place] [address] Care Team Providers Name Role Phone Unavailable [...] do you attend restoration or Never 2021 muslim services? Do you [...] Orthopedic Surgery Deon Herrera M.D. [address] [place], [place] [phone] (Wo rk) documented as of this encounter Visit Diagnoses Not on filedocumented in this encounter
--- OUTSIDE RECORDS SUMMARY | 2022-01-21 09:06 | XMS_ITS | Encounter Summary ---
:1955 Author Organization [facility] Address [address] [place] [address] Care Team Providers Name Role Phone Unavailable Primary Care Provider Unavailable Encounter Details Date Type Department Care Team Description 10/28/2011 Hospital Encounter HX [facility] Guido Man M.D. [address] [place] [address], [address] [place] [address] (Wo rk) Social History Tobacco [...] do you attend bahai or Never 2021 episcopal services? Do you [...] Man M.D. - 10/28/2011 11:18 AM CDT [id number] CHIEF COMPLAINT / REASON FOR VISIT Right [...] a trip to see her mother in [facility] who is not doing well from a [...] will refer her to orthopedic surgery at [place]. She has had previous physical therapy as [...] this and so I will refer herto [place] as well to be seen in the [...] with Ms. Santamaria after her appointments at [place] and she knows to be in contact [...] MAN MD On: 11/05/2011 11:28 AM Source: [facility] MHSDOLBEYNONRADSYS Document Id: [id number] documented in this encounter Procedure Notes Yobani [...] contact with her after her appointments at [place]. She voiced agreement and understanding with this plan. Yobani Man M.D./vipin Electronically Signed By: YOBANI MAN MD On: 11/05/2011 11:08 AM Source: [facility] MHSDOLBEYNONRADSYS Document Id: [id number] documented in this encounter Miscellaneous Notes Miscellaneous - Yobani Man M.D. - 10/28/2011 12:08 PM CDT Ambulatory [place] [address] Visit Information Name: FANTA SANTAMARIA Current Date: 10/28/2011 12:08:35 Physicians Attending [...] No Appointments found Your Goals/Additional instructions: Source: [facility] POWERCHART Document Id: [id number] Miscellaneous - Yobani Man M.D. - 10/28/2011 12:08 PM CDT [place] [address] Visit Information Name: FANTA SANTAMARIA Visit Date: [...] your provider for clarification. Additional Information: Source: [facility] POWERCHART Document Id: [id number] Miscellaneous - Yobani Man M.D. - 10/28/2011 12:00 AM CDT [id number] TO WHOM IT MAY CONCERN October 28, 2011 DEPARTMENT OF ORTHOPEDIC SURGERY [address] [address] RE: Fanta Santamaria : 1955 To Whom [...] MAN MD On: 10/28/2011 05:30 PM Source: [facility] MHSDOLBEYNONRADSYS Document Id: [id number] Miscellaneous - Yobani Man M.D. - 10/28/2011 12:00 AM CDT [id number] KATALINA HATHAWAY M.D. October 28, 2011 [facility] [address] [place] [id number] RE: Fanta Santamaria : 1955 Dr. Hathaway: [...] MAN MD On: 10/28/2011 05:35 PM Source: [facility] MHSDOLBEYNONRADSYS Document Id: [id number] documented in this encounter Plan of Treatment Upcoming Encounters Date Type Specialty Care Team Description 02/04/2022 Office Visit Orthopedic Surgery Deon Herrera M.D. [address] [place], [place] [phone] (Wo rk) documented as of this encounter Visit Diagnoses Not on filedocumented in this encounter
--- OUTSIDE RECORDS SUMMARY | 2022-01-21 09:06 | XMS_ITS | Encounter Summary ---
:1955 Author Organization [facility] Address [address] [place] [address] Care Team Providers Name Role Phone Unavailable Primary Care Provider Unavailable Encounter Details Date Type Department Care Team Description 05/27/2012 Hospital Encounter HX [facility]R Guido Man M.D. [address] [place] [address], [address] [place] [address] (Wo rk) Social History Tobacco [...] do you attend islam or Never 2021 druze services? Do you [...] Man M.D. - 05/27/2012 3:49 PM CDT [id number] CHIEF COMPLAINT / REASON FOR VISIT Follow-up low back and left lower extremity pain. HISTORY OF PRESENT ILLNESS Ms. Santamaria returns today in followup. Since I last saw her, she was seen by Dr. Romano, orthopedic spine surgeon at [place] and I very much appreciate Dr. Laird, Dr. Romano, and Chente Piper, RN, FILTER CLEANER working Ms. Santamaria in to their schedule. Ms. Santamaria had a left L3 transforaminal epidural corticosteroid injection performed at [place] on May 14. Unfortunately, she did not [...] the low back. She has been at [facility] and her pain has made it difficult [...] care that she has been receiving at [place] with Dr. Kingsley's team. 2. I am going to have Ms. Santamaria continue working in occupational and physical therapy. Shehas made progress from a functional standpoint over the past couple of weeks. She will continue to use her medications as prescribed by her primary provider in [place] which includes a Fentanyl patch 50 mcg [...] time 25 minutes Yobani Man M.D./madelaine DOCID: [id number] Electronically Signed By: YOBANI MAN MD On: 05/29/2012 02:48 PM Modified by and Electronically Signed by: YOBANI MAN MD On: 05/29/2012 02:48 PM Source: [facility] MHSDOLBEYNONRADSYS Document Id: [id number] documented in this encounter Miscellaneous Notes Telephone Encounter - Francoise Avila P.A.-C. - 06/05/2012 3:56 PM CDT Phone Message Document Contains Addenda Addendum by FRANCOISE AVILA on 09 June 2012 10:33:53 CDT Faxed PT rx to [facility]. Addendum by YOBANI MAN MD on [...] Yaz has returned home and Vernon from [facility] is there today. Vernon will be going to Yaz's home 2x per week, as well as there will be a home health aide going to her house a couple times a week. Yaz has some PT exercises that she was given by the long term PT and she willcontinue to do those [...] back cell phone number ( ) Source: [facility] POWERCHART Document Id: [id number] Miscellaneous - Yobani Man M.D. - 05/27/2012 5:49 PM CDT Ambulatory [place] [address] Visit Information Name: YAZ SANTAMARIA [facility] Number: [id number] Current Date: 05/27/2012 17:49:46 Physicians [...] Yobani Man MD Your Goals/Additional instructions: Source: [facility] [employer] Document Id: [id number] Miscellaneous - Yobani Man M.D. - 05/27/2012 5:49 PM CDT Ambulatory [place] [address] Visit Information Name: DARLINE YAZ [facility] Number: [id number] Visit Date: 05/27/2012 17:49:45 Attending [...] your provider for clarification. Additional Information: Source: [facility] POWERCHART Document Id: [id number] Miscellaneous - Francoise Avila P.A.-C. - 05/27/2012 4:12 PM CDT Adult Tax Staff Accountant Intake/History Adult Tax Staff Accountant Intake/History Entered On: 05/27/2012 16:14 CDT Performed On: 05/27/2012 16:12 CDT by FRANCOISE AVILA Intake Systolic Blood [...] Preferred Communication Mode : Verbal Languages : Lithuanian FRANCOISE AVILA - 05/27/2012 16:12 CDT Subjective [...] By: FRANCOISE AVILA; Reviewed Date: 03/05/2012 14:12 DIRECTOR ORGANIZATIONAL Source: [facility] [employer] Document Id: [id number] documented in this encounter Plan of Treatment Upcoming Encounters Date Type Specialty Care Team Description 02/04/2022 Office Visit Orthopedic Surgery Deon Herrera M.D. [address] [place] [phone] (Wo rk) documented as of this encounter Visit Diagnoses Not on filedocumented in this encounter
--- OUTSIDE RECORDS SUMMARY | 2022-01-21 09:06 | XMS_ITS | Encounter Summary ---
:1955 Author Organization [facility] Address [address] [place] [address] Care Team Providers Name Role Phone Unavailable Primary Care Provider Unavailable Encounter Details Date Type Department Care Team Description 04/30/2012 Hospital Encounter HX [facility] Guido Man M.D. [address] [place] [address], [address] [place] [address] (Wo rk) Social History Tobacco [...] do you attend sikh or Never 2021 yazdanism services? Do you [...] Comments Blood Pressure 138/70 04/30/2012 12:49 PM WINDER HAND Pulse - - Temperature - - Respiratory Rate - - Oxygen Saturation - - Inhaled Oxygen Concentration - - Weight 117 kg (257 lb 15 oz) 04/30/2012 12:49 PM WINDER HAND Height - - Body Mass Index 38.2 [...] Man M.D. - 04/30/2012 12:15 PM CST [id number] CHIEF COMPLAINT / REASON FOR VISIT Low [...] joints performed on December 05, 2011, at [facility]. She had been doing well until a [...] 1. I am going to give Ms. Santamraia a prescription for Tizanidine 4 mg to [...] time 30 minutes Yobani Man M.D./don DOCID: [id number] Electronically Signed By: YOBANI MAN MD On: 05/11/2012 03:25 PM Modified by and Electronically Signed by: YOBANI MAN MD On: 05/11/2012 03:25 PM Source: [facility] MHSDOLBEYNONRADSYS Document Id: [id number] ER HAND documented in this encounter Miscellaneous Notes Telephone Encounter - Francoise Avila P.A.-C. - 05/15/2012 4:50 PM WINDER HAND Phone Message Document Contains Addenda Addendum by YOBANI MAN MD on 18 May 2012 12:49:43 WINDER HAND From: YOBANI MAN MD To: FRANCOISE AVILA; Sent: 05/18/2012 12:49:43 WINDER HAND Subject: RE: Phone Message Done. Thanks. From: FRANCOISE AVILA To: YOBANI MAN MD; Sent: 05/15/2012 16:50:00 WINDER HAND Subject: Phone Message Caller is: ( ) Patient ( ) Mother ( ) Father ( ) Spouse ( ) Daughter ( ) Son ( ) Pharmacy ( ) Other: Physician: Donovan Patient MRN #: Reason for Call: Yaz is staying at [facility] and the physical therapist there is wondering [...] back cell phone number ( ) Source: [facility] App47 Document Id: [id number] Telephone Encounter - Francoise Avila P.A.-C. - 05/11/2012 9:16 AM WINDER HAND Phone Message Document Contains Addenda Addendum by YOBANI MAN MD on 11 May 2012 09:44:37 WINDER HAND From: YOBANI MAN MD To: FRANCOISE AVILA; Sent: 05/11/2012 09:44:37 WINDER HAND Subject: RE: Phone Message Thank you for letting me know. From: FRANCOISE AVILA To: YOBANI MAN MD; Sent: 05/11/2012 09:16:52 WINDER HAND Subject: Phone Message Caller is: ( ) Patient ( ) Mother ( ) Father ( ) Spouse ( ) Daughter ( ) Son ( ) Pharmacy ( ) Other: Physician: Donovan Patient MRN #: Reason for Call: Yaz wanted to let you know that she was admitted to the [facility], because the pain got worse. Message: Advice/Action: [...] ( ) Source: [facility] POWERCHART Document Id: [id number] Miscellaneous - Yobani Man M.D. - 05/08/2012 12:00 AM CST [id number] [facility] May 08, 2012 DEPARTMENT OF ORTHOPEDIC SPINE SURGERY [address] [place] [address] RE: Yaz Santamaria : 1955 To Whom [...] facet joints performed in November 2011 in [place]. At the end of March, she started [...] MAN MD On: 05/11/2012 08:44 AM Source: [facility] MHSDOLBEYNONRADSYS Document Id: [id number] ER HAND Telephone Encounter - Yobani Man M.D. - 05/08/2012 12:00 AM CST [id number] I did speak with Dr. Webster who read Ms. Santamaria's lumbar spine MRI. He did feel that there was an epidural hematoma likely secondary to bleeding that occurred with a disk herniation. I still donot have the actual images to review. We called [facility] and they said the images were mailed immediately after the MRI was performed. I spoke again with Ms. Santamaria. She has had no worsening neurologic symptoms. With the findings on her MRI and her persistent pain, I feel that it isbest that she meet with one of the spine surgeons at [facility] to obtain their opinion with respect to potential management options at this time. Ms. Santamaria is also in agreement with this. I will plan on being in contact with Ms. Santamaria after her consultation at [facility] and she knows to be in contact with me prior to that time if she notes any worsening or worrisome symptoms which we went over in detail today. She voiced agreement and understanding with this plan. Yobani Man M.D./madelaine DOCID: [id number] Electronically Signed By: YOBANI MAN MD On: 05/11/2012 05:42 PM Modified by and Electronically Signed by: YOBANI MAN MD On: 05/11/2012 05:42 PM Source: [facility] MHSDOLBEYNONRADSYS Document Id: [id number] ER HAND Telephone Encounter - Yobani Man M.D. - 05/07/2012 12:00 AM CST [id number] I reviewed the report of Ms. Santamaria's lumbar spine MRI that was performed yesterday at [facility]. I do not have the images as [...] facet arthropathy. I attempted to contact Dr. Webstre, the radiologist who read this report. He [...] with this plan. Yobani Man M.D./madelaine DOCID: [id number] Electronically Signed By: YOBANI MAN MD On: 05/12/2012 11:32 AM Modified by and Electronically Signed by: YOBANI MAN MD On: 05/12/2012 11:32 AM Source: [facility] MHSDOLBEYNONRADSYS Document Id: [id number] ER HAND Telephone Encounter - Francoise Avila P.A.-C. - 05/04/2012 11:04 AM WINDER HAND Phone Message Document Contains Addenda Addendum by YOBANI MAN MD on 04 May 2012 11:38:04 WINDER HAND From: YOBANI MAN MD To: FRANCOISE AVILA; Sent: 05/04/2012 11:38:04 WINDER HAND Subject: RE: Phone Message Please obtain a MRI of her lumbar spine with follow-up with me afterward. Thanks. From: FRANCOISE AVILA To: YOBANI MAN MD; Sent: 05/04/2012 11:04:36 WINDER HAND Subject: Phone Message Caller is: ( ) [...] back cell phone number ( ) Source: [facility] POWERCHART Document Id: [id number] Telephone Encounter - Francoise Avila P.A.-C. - 05/01/2012 11:58 AM WINDER HAND Phone Message Document Contains Addenda Addendum by YOBANI MAN MD on 01 May 2012 14:01:27 WINDER HAND From: YOBANI MAN MD To: FRANCOISE AVILA; Sent: 05/01/2012 14:01:27 WINDER HAND Subject: RE: Phone Message Thanks. Addendum by FRANCOISE AVILA on 01 May 2012 13:18:04 WINDER HAND From: FRANCOISE AVILA To: YOBANI MAN MD; Sent: 05/01/2012 13:18:04 WINDER HAND Subject: RE: Phone Message They did recheck her blood pressure at noon and it was much better at 124/80. She will split the tizanidine pills in half and see if that helps. Addendum by YOBANI MAN MD on 01 May 2012 12:04:31 WINDER HAND From: YOBANI MAN MD To: FRANCOISE AVILA; Sent: 05/01/2012 12:04:31 WINDER HAND Subject: RE: Phone Message Yes, she can cut them in half. Just use 1/2 tab currently to see if that helps. Thanks. From: FRANCOISE AVILA To: YOBANI MAN MD; Sent: 05/01/2012 11:58:59 WINDER HAND Subject: Phone Message Caller is: ( ) Patient ( ) Mother ( ) Father ( ) Spouse ( ) Daughter ( ) Son ( ) Pharmacy ( ) Other: Physician: Donovan Patient MRN #: Reason for Call:The home health nurse was out to see Yaz this morning. Yaz did take one of thetizanidine last night [...] back cell phone number ( ) Source: [facility] POWERCHART Document Id: [id number] Miscellaneous - Yobani Man M.D. - 04/30/2012 1:54 PM CST [place] [address] Visit Information Name: YAZ SANTAMARIA [facility] Number: [phone] Current Date: 04/30/2012 13:54:58 Physicians [...] No Appointments found Your Goals/Additional instructions: Source: [facility] POWERCHART Document Id: [id number] ER HAND Miscellaneous - Yobani Man M.D. - 04/30/2012 1:54 PM CST [place] [address] Visit Information Name: YAZ SANTAMARIA [facility] Number: [phone] Visit Date: 04/30/2012 13:54:57 Attending [...] your provider for clarification. Additional Information: Source: [facility] POWERCHART Document Id: [id number] ER HAND Miscellaneous - Francoise Avila P.A.-C. - 04/30/2012 1:54 PM CST Reminder Msg From: FRANCOISE AVILA To: FRANCOISE AVILA; Sent: 04/30/2012 13:54:35 WINDER HAND Show up: 05/07/2012 13:54:00 WINDER HAND Subject: Reminder Msg Please Remember to: see how she is feeling PATIENT: ( ) Call Patient ( ) Ask Patient to ( ) ( ) Call Relative ( ) Schedule Patient ( ) ( ) Call for Cabana Attendant ( ) Follow up on Results ( ) Other: PROVIDER: ( ) Call Physician ( ) Call Pharmacist ( ) Call Lab ( ) Other: Special Instructions: Comments: Source: [facility] POWERCHART Document Id: [id number] Miscellaneous - Francoise Avila P.A.-C. - 04/30/2012 12:49 PM CST Adult Hemstitching Machine Operator Intake/History Adult Hemstitching Machine Operator Intake/History Entered On: 04/30/2012 12:49 WINDER HAND Performed On: 04/30/2012 12:49 WINDER HAND by FRANCOISE AVILA Intake Systolic Blood Pressure : 138mmHg Diastolic Blood Pressure : 70mmHg NIBP Mean : 93mmHg BP Location : Right upper extremity Blood Pressure Cuff Size : Large Actual Weight : 117.0kg(Converted to: 257lb 15oz) Weight Source : Standing scale Dosing Weight Clinic : 117.00kg FRANCOISE AVILA - 04/30/2012 12:49 WINDER HAND General Info Information Given By : Patient Preferred Communication Mode : Verbal Languages : Scottish FRANCOISE AVILA - 04/30/2012 12:49 WINDER HAND Subjective Pain Symptoms : No FRANCOISE AVILA - 04/30/2012 12:49 WINDER HAND Dependent Habits Tobacco Use/Currently Using : No Exposure to Tobacco Smoke : Other: never Smoking Status : Never smoker FRANCOISE AVILA - 04/30/2012 12:49 WINDER HAND Allergy Allergies (Active) penicillins Estimated Onset Date: Unspecified ; Created By: FRANCOISE AVILA; Reaction Status:Active ; Category: Drug ; Substance: penicillins ; Type: Allergy ; Updated By: FRANCOISE AVILA; Reviewed Date: 03/05/2012 14:12 WINDER HAND Source: [facility] POWERCHART Document Id: [id number] ER HAND documented in this encounter Plan of Treatment Upcoming Encounters Date Type Specialty Care Team Description 02/04/2022 Office Visit Orthopedic Surgery Deon Herrera M.D. [address] [place] [address] [phone] (Wo rk) documented as of this encounter Visit Diagnoses Not on filedocumented in this encounter
--- OUTSIDE RECORDS SUMMARY | 2022-01-21 09:06 | XMS_ITS | Encounter Summary ---
:1955 Author Organization [facility] Address [address] [place] [address] Care Team Providers Name Role Phone Unavailable Primary Care Provider Unavailable Encounter Details Date Type Department Care Team Description 04/25/2011 Hospital Encounter HX [facility] Guido Man M.D. [address] [place] [address], [address] [place] [address] (Wo rk) Social History Tobacco [...] do you attend islam or Never 2021 yazidism services? Do you [...] Comments Blood Pressure 126/80 04/25/2011 1:38 PM EDGE BURNISHER Pulse - - Temperature - - Respiratory Rate - - Oxygen Saturation - - Inhaled Oxygen Concentration - - Weight 107 kg (235 lb 10.8 oz) 04/25/2011 1:38 PM EDGE BURNISHER Height - - Body Mass Index - [...] Man M.D. - 04/25/2011 12:00 AM CST [id number] CHIEF COMPLAINT / REASON FOR VISIT Low [...] She is involved in physical therapy at [facility] in [place] primarily working on stretching of her piriformis [...] Physical Medicine & Rehabilitation CC: Dr. Harris [facility] Electronically Signed By: YOBANI MAN MD On: 05/06/2011 10:28 AM Modified by and Electronically Signed by: YOBANI MAN MD On: 05/06/2011 10:27 AM Source: [facility] MHSDOLBEYNONRADSYS Document Id: [id number] BURNISHER documented in this encounter Nursing Notes Imelda Culp R.T.(Manish) - 05/23/2011 11:54 AM CST Note sent Progress note from 04/25/[address] Harris in [place]. Electronically Signed By: IMELDA CULP On: 05/23/2011 11:55 AM Source: [facility] POWERCHART Document Id: [id number] BURNISHER documented in this encounter Miscellaneous Notes Miscellaneous - Francoise Avila P.A.-C. - 05/09/2011 8:47 AM CST Reminder Msg Document Contains Addenda Addendum by YOBANI MAN MD on 22 May 2011 17:12:13 EDGE BURNISHER From: YOBANI MAN MD To: FRANCOISE AVILA; Sent: 05/22/2011 17:12:13 EDGE BURNISHER Show up: 05/22/2011 17:11:00 EDGE BURNISHER Subject: RE: Reminder Msg She is doing much better. I am going to have her initiate PT. Thanks. From: FRANCOISE AVILA To: YOBANI MAN MD; Sent: 05/09/2011 08:47:55 EDGE BURNISHER Show up: 05/19/2011 08:47:00 EDGE BURNISHER Subject: Reminder Please Remember to: see how she is feeling after B facet joint injections PATIENT: ( ) Call Patient ( ) Ask Patient to ( ) ( ) Call Relative ( ) Schedule Patient ( ) ( ) Call for Coordinate Measuring Equipment Operator ( ) Follow up on Results ( ) Other: PROVIDER: ( ) Call Physician ( ) Call Pharmacist ( ) Call Lab ( ) Other: Special Instructions: Comments: Source: [facility] [employer] Document Id: [id number] Miscellaneous - Francoise Avila P.A.-C. - 04/25/2011 1:38 PM CST Adult Packaging Technician Intake/History Adult Packaging Technician Intake/History Entered On: 04/25/2011 13:39 EDGE BURNISHER Performed On: 04/25/2011 13:38 EDGE BURNISHER by FRANCOISE AVILA Intake Systolic Blood Pressure : 126mmHg Diastolic Blood Pressure : 80mmHg NIBP Mean : 95mmHg BP Location : Right upper extremity Blood Pressure Cuff Size : Large Actual Weight : 106.9kg(Converted to: 235lb 11oz) Weight Source : Standing scale Dosing Weight Clinic : 106.90kg FRANCOISE AVILA - 04/25/2011 13:38 EDGE BURNISHER Subjective Pain Symptoms : No FRANCOISE AVILA - 04/25/2011 13:38 EDGE BURNISHER Dependent Habits Tobacco Use/Currently Using : No Exposure to Tobacco Smoke : Other: never Smoking Status : Never smoker FRANCOISE AVILA - 04/25/2011 13:38 EDGE BURNISHER Allergy Allergies (Active) penicillins Estimated Onset Date: Unspecified ; Created By: FRANCOISE AVILA; Reaction Status:Active ; Category: Drug ; Substance: penicillins ; Type: Allergy ; Updated By: FRANCOISE AVILA; Reviewed Date: 10/09/2009 14:26 CDT [facility] Document Id: [id number] EDGE BURNISHER!16 BURNISHER documented in this encounter Plan of Treatment Upcoming Encounters Date Type Specialty Care Team Description 02/04/2022 Office Visit Orthopedic Surgery Deon Herrera M.D. [address] [place] [phone] (Wo rk) documented as of this encounter Visit Diagnoses Not on filedocumented in this encounter
--- OUTSIDE RECORDS SUMMARY | 2022-01-21 09:07 | XMS_ITS | Encounter Summary ---
:1955 Author Organization [facility] Address [address] [place] [address] Care Team Providers Name Role Phone Unavailable Primary Care Provider Unavailable Encounter Details Date Type Department Care Team Description 04/09/2011 Hospital Encounter [facility]X [facility] Rob Lemons M.D. [address] [place] [address], [address] [place] [address] (Wo rk) Social History Tobacco [...] do you attend buddhist or Never 2021 yazidism services? Do you [...] Visit Orthopedic Surgery Deon Herrera M.D. [address] [place], [place] [phone] (Wo rk) documented as of this encounter Visit Diagnoses Not on filedocumented in this encounter
--- OUTSIDE RECORDS SUMMARY | 2022-01-21 09:07 | XMS_ITS | Encounter Summary ---
:1955 Author Organization [facility] Address [address] [place] [address] Care Team Providers Name Role Phone Unavailable Primary Care Provider Unavailable Encounter Details Date Type Department Care Team Description 04/09/2011 Hospital Encounter [facility]X [facility] Rob Lemons M.D. [address] [place] [address], [address] [place] [address] (Wo rk) Social History Tobacco [...] do you attend moravian or Never 2021 sabianist services? Do you [...] Visit Orthopedic Surgery Deon Herrera M.D. [address] [place], [place] [phone] (Wo rk) documented as of this encounter Visit Diagnoses Not on filedocumented in this encounter
--- OUTSIDE RECORDS SUMMARY | 2022-01-21 09:07 | XMS_ITS | Encounter Summary ---
:1955 Author Organization [facility] Address [address] [place] [address] Care Team Providers Name Role Phone Unavailable Primary Care Provider Unavailable Encounter Details Date Type Department Care Team Description 10/09/2009 Hospital Encounter HX [facility] Guido Man M.D. [address] [place] [address], [address] [place] [address] (Wo rk) Social History Tobacco [...] do you attend rastafari or Never 2021 latter day services? Do [...] Man M.D. - 10/09/2009 12:00 AM CDT [id number] IMPRESSION/REPORT/PLAN 1. Right knee pain 2. Right [...] are scheduled to go on vacation to [facility] for three weeks and she is inquiring [...] Physical Medicine & Rehabilitation CC: Dr. Harris [facility] Electronically Signed By:YOBANI MAN MD On 10/11/2009 05:43 PM Modified by:YOBANI MAN MD On 10/11/2009 05:43 PM Source: [facility] MHSDOLBEYNONRADSYS Document Id: [id number] documented in this encounter Procedure Notes Yobani [...] Physical Medicine & Rehabilitation CC: Dr. Harris [facility] Electronically Signed By:YOBANI MAN MD On 10/11/2009 05:43 PM Modified by:YOBANI MAN MD On 10/11/2009 05:43 PM Source: [facility] MHSDOLBEYNONRADSYS Document Id: [id number] documented in this encounter Miscellaneous Notes Miscellaneous [...] Patient ( ) ( ) Call for Carding Machine Operator ( ) Follow up on Results ( ) Other: PROVIDER: ( ) Call Physician ( ) Call Pharmacist ( ) Call Lab ( ) Other: Special Instructions: Comments: Source: [facility] POWERCHART Document Id: [id number] Miscellaneous - Francoise Avila P.A.-C. - 10/09/2009 2:29 PM CDT Adult Director Emergency Intake/History Adult Director Emergency Intake/History Entered On: 10/09/2009 14:29 CDT Performed On: 10/09/2009 14:29 CDT by FRANCOISE AVILA Intake Systolic Blood Pressure: 104mmHg Diastolic Blood Pressure: 72mmHg NIBP Mean: 83mmHg BP Location: Left upper extremity Actual Weight: 110.900kg(Converted to: 244.493lb) Dosing Weight Clinic: 110.90kg FRANCOISE AVILA - 10/09/2009 14:29 CDT Subjective Pain Symptoms: No FRANCOISE AVILA - 10/09/2009 14:29 CDT Dependent Habits Tobacco Use/Currently Using: No FRANCOISE AVILA - 10/09/2009 14:29 CDT Allergies Allergies (Active) penicillins Estimated Onset Date: Unspecified ; Created By: FRANCOISE AVILA; Reaction Status:Active ; Category: Drug ; Substance: penicillins ; Type: Allergy ; Updated By: FRANCOISE AVILA; Reviewed Date: 10/09/2009 14:26 CDT Source: [employer] Document Id: [id number] CDT!12 documented in this encounter Plan of Treatment Upcoming Encounters Date Type Specialty Care Team Description 02/04/2022 Office Visit Orthopedic Surgery Deon Herrera M.D. [address] [place] [phone] (Wo rk) documented as of this encounter Visit Diagnoses Not on filedocumented in this encounter
--- OUTSIDE RECORDS SUMMARY | 2022-01-21 09:07 | XMS_ITS | Encounter Summary ---
:1955 Author Organization [facility] Address [address] [place] [address] Care Team Providers Name Role Phone Unavailable Primary Care Provider Unavailable Encounter Details Date Type Department Care Team Description 07/06/2008 Hospital Encounter HX NO MAPPING Clay Man M.D. [address] [place] [address] , [address] [place] [address] (Wo rk) Social History Tobacco [...] do you attend gnosticist or Never 2021 congregation services? Do you [...] Orthopedic Surgery Deon Herrera M.D. [address] [place] [address] [phone] (Wo rk) documented as of this [...] However, mild chondrocalcinosis is suspected in the nj dial meniscus which can be associated with [...]
== END 2022-01-12 11:09 | disposition home or self-care (01) ==
PROVIDERS: PCP Family Medicine; Visit Provider Emergency Medicine Emergency Medical Services
DX: R53.1 Weakness (principal); R41.0 Disorientation, unspecified; R50.9 Fever, unspecified
CPT/HCPCS: A0425; A0427

== ENCOUNTER 2022-01-12 11:44 | Inpatient (IN) | payer MEDICARE, BC, SELFPAY ==
[2022-01-12] VITALS (15 sets, daily range): BP systolic 110–155; BP diastolic 52–112; PULSE 90–116; RESP 16–22; TEMP 36.9–38.8; O2SAT 90–98; BMI 40.9
--- NOTE | 2022-01-12 11:54 | ED_ITS ---
HPI - General Adult General Time Seen by Provider: 11:55 Date Seen: 01/12/22 Chief complaint: Fever Stated complaint: Possible sepsis Time Seen by Provider: 01/12/22 11:54 Source: patient, EMS and RN notes reviewed Mode of arrival: EMS Limitations: no limitations History of Present Illness HPI narrative: Patient is a 66-year-old female who had cervical spine surgery just almost 2 weeks ago, surgery will be 2 weeks from this coming Friday. She was brought in by ambulance for fever, confusion at home. EMS was concerned about infection/sepsis as they obtained a fever of 102, she was complaining of increased neck pain and was tachycardic for them. They did give her supplemental oxygen better O2 sats were only about 93%. She has an ice pack on her neck and is complaining of increased neck pain. They did try intranasal fentanyl but stated it only burned her throat. Then they gave her 50 mcg IM fentanyl. There were unsuccessful getting an IV in her. The intranasal dose was 25 mcg. She has not been coughing, no abdominal pain. Has not eaten overnight but has drink fluids. No nausea or vomiting. She does have some foot pain bilaterally but states she has plantar fasciitis. She was into the clinic yesterday and saw Dr. Emery, insulin was ordered but her insurance is not covering the insulin he ordered. EMS documented an elevated sugar but at this time I do not remember the exact value. I will see if nursing did document that. She was doing fine yesterday, symptoms developed overnight. She resides at home, has a primary caregiver that helps her. They did give her Tylenol at home just prior to calling the ambulance. Denies any pain into her arms from her neck. MD complaint: Post surgical fever Location: neck Related Data Home Medications Medication Instructions Recorded Confirmed Diabetic meter Not Applicable 10/17/21 10/17/21 Fish Oil PO QDAY 10/17/21 10/17/21 Lancets Not Applicable BID 10/17/21 10/17/21 alpha lipoic acid 600 mg capsule 600 mg PO .Bedtime 10/17/21 10/17/21 azelaic acid 15 % topical gel 15 topical BID 10/17/21 10/17/21 riirwwf-rhxhvqljr-elbz tablet 1 tab PO .qd 10/17/21 10/17/21 coenzyme Q10 100 mg capsule mg PO DAILY 10/17/21 10/17/21 diclofenac sodium 1 % topical gel 2 topical QID 10/17/21 10/17/21 ferrous fumarate-vitamin C 132 tab PO QDAY 10/17/21 10/17/21 mg-250 mg tablet fluticasone propionate 110 1 inhalation BID 10/17/21 10/17/21 mcg/actuation HFA aerosol inhaler ginkgo biloba 40 mg tablet 40 mg PO QDAY 10/17/21 10/17/21 hydrochlorothiazide 25 mg tablet 25 mg PO DAILY 10/17/21 01/12/22 loratadine 10 mg capsule 10 mg PO DAILY 10/17/21 10/17/21 metformin 500 mg tablet 1,000 mg PO BIDWMEAL 10/17/21 01/12/22 metronidazole 0.75 % topical gel 1 topical BID 10/17/21 10/17/21 nystatin 100,000 unit/gram topical 1 topical .2-3X/Day 10/17/21 10/17/21 cream pramipexole 0.125 mg tablet 0.625 mg PO DAILY 10/17/21 10/17/21 rivaroxaban 10 mg tablet 10 mg PO DAILY 10/17/21 01/12/22 trazodone 100 mg tablet 200 mg PO HS 10/17/21 01/12/22 valacyclovir 500 mg tablet 500 mg PO BID PRN 10/17/21 10/17/21 venlafaxine 75 mg capsule,extended 225 mg PO DAILY 10/17/21 01/12/22 release 24 hr polyethylene glycol 3350 17 4 g PO ONCE 01/09/22 01/09/22 gram/dose oral powder (Miralax) Previous Rx's Medication Instructions Recorded pregabalin 150 mg capsule 150 mg PO TID #270 caps 10/17/21 Blood Glucose Meter #1 ea 01/09/22 Diabetic Test Strips #300 ea 01/09/22 alcohol swabs (Alcohol Pads) 1 pad topical TID #200 ea 01/09/22 glipizide 10 mg tablet, extended 10 mg PO QDAY #90 tabs 01/09/22 release 24 hr insulin aspart U-100 100 unit/mL 8 unit (0.08 mL) subcut TIDWMEAL 01/09/22 (3 mL) subcutaneous pen #45 mL insulin glargine 100 unit/mL (3 24 unit (0.24 mL) subcut QAM #45 mL 01/09/22 mL) subcutaneous pen lancets #200 ea 01/09/22 oxycodone-acetaminophen 10 mg-325 1 - 2 tab PO BID PRN pain #30 tabs 01/09/22 mg tablet pen needle,diabetic dual safty 30 #100 ea 01/09/22 gauge x 3/16 (BD AutoShield Duo Pen Needle) Allergies Allergy/AdvReac Type Severity Reaction Status Date / Time mupirocin Allergy Unknown Verified 01/09/22 15:05 Review of Systems Status of ROS: Reports: 10 or more systems reviewed and unremarkable except as noted in History and below [facility] Surgical History (Updated 10/19/21 @ 09:26 by Svetlana Mccall LPN) History of discectomy (12/26/08) History of hysteroscopy (12/26/08) History of tonsillectomy and adenoidectomy (12/26/08) History of total knee replacement (05/04/09) Status post appendectomy Social History (Updated 10/17/21 @ 13:33 by Anoop Emery MD) Narrative: SOCIAL HISTORY: as of February 2013. History of alcoholism but she has been sober for 36 years. Very involved in alcoholics anonymous meetings. Basically disabled. Originally from [place]. Not very physically active given her ongoing physical issues but she has been going for short walks sporadically in the last month or so. HABITS: No tobacco alcohol or recreational drug use. Smoking Status: Former smoker Do you use any of these nicotine containing products: None Second hand tobacco smoke exposure: No How often do you have a drink containing alcohol: never How often do you have six or more drinks on one occasion: Never AUDIT-C Alcohol total score: 0 Non-prescribed substance use: denies use service: No Exam Const: Vital Signs, click to edit/add: Vital Signs - 24 hr 01/12/22 11:53 01/12/22 12:00 01/12/22 12:15 Temperature 99.2 F Pulse Rate [Right Pulse Oximeter] 115 H 114 H Respiratory Rate 20 Blood Pressure [Ri ght Upper Arm] 139/70 110/87 Pulse Oximetry 94 97 98 Oxygen Delivery Me thod Room Air Nasal Cannula 01/12/22 12:10 01/12/22 13:30 10/29/22 13:07 Temperature 99.7 F H Pulse Rate [Right Pulse Oximeter] 112 H 112 H 116 H Respiratory Rate 16 22 Blood Pressure [Ri ght Upper Arm] 148/82 H 144/112 H 129/107 H Pulse Oximetry 97 96 95 Oxygen Delivery Me thod Nasal Cannula Nasal Cannula Nasal Cannula 01/12/22 15:35 Temperature Pulse Rate [Right Pulse Oximeter] 109 H Respiratory Rate 16 Blood Pressure [Ri ght Upper Arm] 121/59 L Pulse Oximetry 94 Oxygen Delivery Me thod Nasal Cannula Documenting provider has reviewed patient's vital signs: yes Common normals: no apparent distress, oriented x3, no limitations, healthy appearing, alert and well nourished General appearance: cooperative and well kempt Nutritional appearance: obese HENMT: Common normals: normocephalic, head/scalp atraumatic, hearing grossly normal bilaterally, external ears normal, external nose normal, nasal mucous membranes and turbinates normal, moist oral mucous membranes, oropharynx normal, dentition normal and gingiva normal Head and scalp: normocephalic and atraumatic Nose: external nose normal and nasal mucous membranes and turbinates normal External ear: external ears normal Eye: Common normals: PERRL, EOMs intact bilaterally, conjunctivae normal and no scleral icterus Conjunctiva: conjunctiva(e) normal Pupil: PERRL Neck & C-Spine: Other: She is able to sit up but does complain of pain with some range of motion of her neck. The incision has some erythema around it and is generally tender. I do not feel any fluctuance, see no drainage. There is no cervical adenopathy, no tenderness of her neck outside of the incision. She is able to rotate her neck. Resp: Common normals: normal respiratory effort, no retractions, no use of accessory muscles and clear to auscultation bilaterally Auscultation: clear to auscultation bilaterally Cardio: Common normals: regular rhythm, S1 normal heart sound, S2 normal heart sound, no gallops, no clicks and no murmurs Rate: tachycardic Rhythm: regular rhythm Heart sounds: S1 normal and S2 normal GI: Common normals: Normal to inspection, nondistended, normoactive bowel sounds present, soft to palpation, non-tender, no hepatosplenomegaly and no masses Palpation: soft and no hepatosplenomegaly Extremity: Other: She has no lower extremity edema, no calf tenderness, skin over her lower extremities looks normal. Shoes and socks removed, no abnormalities on inspection of her feet. There is nothing concerning for were breakdown or skin infection. Neuro: [place] Coma Scale: document GCS findings [place] coma scale eye opening: Spontaneous (4) [place] coma scale verbal response: Orientated (5) [place] coma scale motor response: Obey commands (6) [place] coma scale total score: 15 Common normals: oriented x3, moves all extremities, no focal motor deficits and no sensory deficits noted Sensorium/orientation: alert Psych: Appearance: well kempt Course Course Hospital Course: We will start with a L of IV fluids, watch her closely. Will have her on cardiac monitoring and pulse oximetry. Obtain blood cultures full complement of labs including COVID/influenza/RSV. We need to assess for infectious etiology. Will be obtaining a portable chest x-ray as well as the cervical spine CT. If this looks like a postoperative infection, will need to try to contact the institution she had this done at. May need to initiate insulin for her as she does not have any and sounds as if it was going to be started yesterday but there were insurance complications. Nursing staff is going to have to try to find IV access. Consultations Consultation #1: Started working with [facility] quite quickly on this patient. Spoke with the Orthopedic chief resident on-call Dr. Thomson at 2:05 p.m.. They felt that this was not a a orthopedic postoperative complication as far as the actual surgery itself. They agreed it sounded like pneumonia. Evelia the nurse triage will be attempting to look in her system for bed placement. [facility] might be an option. Otherwise they are on divert. Note, just before 3:30 p.m., learn from [facility] that there are no beds. We have been in contact with multiple facilities in the area regarding other patients. There are no appropriate bed placement for this patient at this time, we may have two beds later this evening. Right now we are boarding multiple people here. Will continue to work on bed placement. [facility] requested that we call them back at 11 a.m. tomorrow if we were still in need. Consultation #2: Have spoken with our hospitalist Dr. Guthrie. She is down here to consult. She has worked with the hospital staff and they believe that they will be able to take this patient. She does believe that she should be on vancomycin and I have subsequently ordered it. I have ordered another L of fluids which would put her near the 3 L that she would require for sepsis protocol. Her pulse is stabilizing, lactate improving down to 2.2. Time: 16:20 Vital Signs Vital signs: Initial Vital Signs Temperature 99.2 F 01/12/22 11:53 Temperature Source Temporal Artery Scan 01/12/22 11:53 Pulse Rate 115 H 01/12/22 11:53 Blood Pressure 139/70 01/12/22 11:53 Blood Pressure Mean 93 01/12/22 11:53 Blood Pressure Position Sitting 01/12/22 11:53 Pulse Oximetry 94 01/12/22 11:53 Oxygen Delivery Method 01/12/22 11:53 Vital Signs Temperature 99.2 F 01/12/22 11:53 Pulse Rate 115 H 01/12/22 11:53 Blood Pressure 139/70 01/12/22 11:53 Pulse Oximetry 94 01/12/22 11:53 Oxygen Delivery Method 01/12/22 11:53 Temperature 99.7 F H 01/12/22 13:30 Pulse Rate 109 H 01/12/22 15:35 Respiratory Rate 16 01/12/22 15:35 Blood Pressure 121/59 L 01/12/22 15:35 Pulse Oximetry 94 01/12/22 15:35 Oxygen Delivery Method 01/12/22 15:35 Medical Decision Making Lab Data Lab results reviewed: Yes I reviewed the patient's lab results Labs: Lab Results 01/12/22 01/12/22 01/12/22 Range/Units 11:56 11:56 12:15 WBC 23.18 H (4.50-11.00) K/uL RBC 5.52 H (4.00-5.20) m/uL Hgb 15.4 (12.0-16.0) gm/dL Hct 48.4 (33.0-51.0) % MCV 88 (80-100) fL MCH 28 (26-34) pg MCHC 32 (32-36) gm/dL RDW Coeff of Steven 15.0 (11.5-15.5) % Plt Count 422 (140-440) K/uL Neut % (Auto) 90.1 H (42.0-72.0) % Lymph % (Auto) 5.4 L (20-44) % Robertson % (Auto) 3.8 (0.0-11.0) % Eos % (Auto) 0.2 (0.0-7.0) % Baso % (Auto) 0.2 (0.0-3.0) % Neut # (Auto) 20.90 H (1.7-7.0) K/uL Lymph # (Auto) 1.30 (0.90-2.90) K/uL Robertson # (Auto) 0.90 (0.00-0.90) K/UL Eos # (Auto) 0.00 (0.00-0.50) K/uL Baso # (Auto) 0.00 (0.00-0.30) K/uL Abs Immat Gran (auto) 0.08 (0.00-0.30) K/uL Diff Slide Review Acceptable Review (Acceptable) Sodium 137 (135-149) mmol/L Potassium 4.3 (3.6-5.1) mmol/L Chloride 98 (96-114) mmol/L Carbon Dioxide 25 (20-32) mmol/L BUN 13 (7-30) mg/dL Creatinine 0.6 (0.5-1.5) mg/dL Estimated GFR 98 ml/min Glucose 230 H (60-115) mg/dL Lactate (0.5-1.9) mmol/L Calcium 9.7 (8.4-10.6) mg/dL Total Bilirubin 0.7 (0.1-1.5) mg/dL AST 28 (12-35) U/L ALT 35 (4-35) U/L Alkaline Phosphatase 104 (40-150) U/L C-Reactive Protein 3.2 H (0.5-1.0) mg/dL Total Protein 7.6 (6.0-8.3) g/dL Albumin 4.6 (3.3-5.0) g/dL Urine Color Yellow (Yellow) Urine Appearance Clear (Clear) Urine pH 5.5 (5.0-8.5) Ur Specific Woodward 1.020 (1.000-1.030) Urine Protein Negative (Negative) Urine Glucose (UA) Negative (Negative) Urine Ketones Negative (Negative) Urine Blood Negative (Negative) Urine Nitrite Negative (Negative) Urine Bilirubin Negative (Negative) Urine Urobilinogen 0.2 (0.2-1.0) Ur Leukocyte Esterase Negative (Negative) Urine RBC 0-2 (0-2) Urine WBC 0-2 (0-5) Ur Squamous Epith Cells Few (None-Few) Urine Bacteria None (None) SARS-CoV-2 (PCR) (Negative) Influenza Type A (PCR) (Negative) Influenza Type B (PCR) (Negative) RSV (PCR) (Negative) POC Troponin I (0.01-0.04) ng/ml 01/12/22 01/12/22 01/12/22 Range/Units 12:15 12:15 12:15 WBC (4.50-11.00) K/uL RBC (4.00-5.20) m/uL Hgb (12.0-16.0) gm/dL Hct (33.0-51.0) % MCV (80-100) fL MCH (26-34) pg MCHC (32-36) gm/dL RDW Coeff of Steven (11.5-15.5) % Plt Count (140-440) K/uL Neut % (Auto) (42.0-72.0) % Lymph % (Auto) (20-44) % Robertson % (Auto) (0.0-11.0) % Eos % (Auto) (0.0-7.0) % Baso % (Auto) (0.0-3.0) % Neut # (Auto) (1.7-7.0) K/uL Lymph # (Auto) (0.90-2.90) K/uL Robertson # (Auto) (0.00-0.90) K/UL Eos # (Auto) (0.00-0.50) K/uL Baso # (Auto) (0.00-0.30) K/uL Abs Immat Gran (auto) (0.00-0.30) K/uL Diff Slide Review (Acceptable) Sodium (135-149) mmol/L Potassium (3.6-5.1) mmol/L Chloride (96-114) mmol/L Carbon Dioxide (20-32) mmol/L BUN (7-30) mg/dL Creatinine (0.5-1.5) mg/dL Estimated GFR ml/min Glucose (60-115) mg/dL Lactate 4.0 H (0.5-1.9) mmol/L Calcium (8.4-10.6) mg/dL Total Bilirubin (0.1-1.5) mg/dL AST (12-35) U/L ALT (4-35) U/L Alkaline Phosphatase (40-150) U/L C-Reactive Protein (0.5-1.0) mg/dL Total Protein (6.0-8.3) g/dL Albumin (3.3-5.0) g/dL Urine Color (Yellow) Urine Appearance (Clear) Urine pH (5.0-8.5) Ur Specific Woodward (1.000-1.030) Urine Protein (Negative) Urine Glucose (UA) (Negative) Urine Ketones (Negative) Urine Blood (Negative) Urine Nitrite (Negative) Urine Bilirubin (Negative) Urine Urobilinogen (0.2-1.0) Ur Leukocyte Esterase (Negative) Urine RBC (0-2) Urine WBC (0-5) Ur Squamous Epith Cells (None-Few) Urine Bacteria (None) SARS-CoV-2 (PCR) Negative SARS-CoV-2 (Negative) Influenza Type A (PCR) Negative PCR FLU A (Negative) Influenza Type B (PCR) Negative PCR FLU B (Negative) RSV (PCR) Negative PCR RSV (Negative) POC Troponin I 0.01 (0.01-0.04) ng/ml 01/12/22 Range/Units 15:55 WBC (4.50-11.00) K/uL RBC (4.00-5.20) m/uL Hgb (12.0-16.0) gm/dL Hct (33.0-51.0) % MCV (80-100) fL MCH (26-34) pg MCHC (32-36) gm/dL RDW Coeff of Steven (11.5-15.5) % Plt Count (140-440) K/uL Neut % (Auto) (42.0-72.0) % Lymph % (Auto) (20-44) % Robertson % (Auto) (0.0-11.0) % Eos % (Auto) (0.0-7.0) % Baso % (Auto) (0.0-3.0) % Neut # (Auto) (1.7-7.0) K/uL Lymph # (Auto) (0.90-2.90) K/uL Robertson # (Auto) (0.00-0.90) K/UL Eos # (Auto) (0.00-0.50) K/uL Baso # (Auto) (0.00-0.30) K/uL Abs Immat Gran (auto) (0.00-0.30) K/uL Diff Slide Review (Acceptable) Sodium (135-149) mmol/L Potassium (3.6-5.1) mmol/L Chloride (96-114) mmol/L Carbon Dioxide (20-32) mmol/L BUN (7-30) mg/dL Creatinine (0.5-1.5) mg/dL Estimated GFR ml/min Glucose (60-115) mg/dL Lactate 2.2 H (0.5-1.9) mmol/L Calcium (8.4-10.6) mg/dL Total Bilirubin (0.1-1.5) mg/dL AST (12-35) U/L ALT (4-35) U/L Alkaline Phosphatase (40-150) U/L C-Reactive Protein (0.5-1.0) mg/dL Total Protein (6.0-8.3) g/dL Albumin (3.3-5.0) g/dL Urine Color (Yellow) Urine Appearance (Clear) Urine pH (5.0-8.5) Ur Specific Woodward (1.000-1.030) Urine Protein (Negative) Urine Glucose (UA) (Negative) Urine Ketones (Negative) Urine Blood (Negative) Urine Nitrite (Negative) Urine Bilirubin (Negative) Urine Urobilinogen (0.2-1.0) Ur Leukocyte Esterase (Negative) Urine RBC (0-2) Urine WBC (0-5) Ur Squamous Epith Cells (None-Few) Urine Bacteria (None) SARS-CoV-2 (PCR) (Negative) Influenza Type A (PCR) (Negative) Influenza Type B (PCR) (Negative) RSV (PCR) (Negative) POC Troponin I (0.01-0.04) ng/ml Imaging Data Chest x-ray: Attestation: I have reviewed the pertinent imaging results. Radiologist's impression: Patient: FANTA CARTERAMBAR MATTSON Facility:[facility] Patient ID:?[id number] Site Patient ID:?[id number] Site :?[id number] Study:?XRay Chest 1V-01/12/2022 1:05:53 PM Ordering Physician:Jed Briscoe Final Report: INDICATION: Postoperative fever COMPARISON: June 08, 2021 TECHNIQUE: Single-view study obtained portably January 12, 2022 at 12:50 p.m. FINDINGS: TUBES AND LINES: None. HEART AND MEDIASTINUM: The heart size is normal. The mediastinal contour appears normal for patient age. LUNGS AND PLEURAL SPACES: Left lower lobe airspace process new since the prior study. This could be atelectasis, aspiration or pneumonia.The pleural spaces are unremarkable. OSSEOUS STRUCTURES: Re- demonstration of a nonacute left clavicular fracture IMPRESSION: Left lower lobe airspace process new since the prior study. This could be atelectasis, aspiration or pneumonia. Dictated by Logan Larkin MD @ 01/12/2022 1:19:51 PM (Electronic Signature) CT cervical spine: Attestation: I have reviewed the pertinent imaging results. Radiologist's impression: Patient: FANTA MATTSON Facility:?[facility] Patient ID:?[id number] Site Patient ID:?[id number]. Site :?[id number] Study:?CT Spine Cervical WITHOUT-01/12/2022 1:10:20 PM Ordering Physician:?Donnell Briscoe Final Report: Indication: increased pain after C-SPINE surgery and fever Technique: Noncontrast axial CT of the cervical spine with coronal and sagittal reformats are provided. Comparison: No prior studies available for comparison at this institution. Findings: No fractures. There is reversal of normal cervical lordosis. Postoperative changes of laminectomy at C3-4 and left sided open door laminoplasties at C4, C5 and C6 levels. Diffuse swelling the paraspinal soft tissues along the incision site consistent with postop changes. The craniocervical junction is unremarkable. No prevertebral edema. Anterior osteophytic spurring at C4-5, C5-6 and C6-7. No lytic or sclerotic osseous lesions. Chronic nonunited left clavicle fracture. C1-2: No spinal canal stenosis C2-3: No bony spinal canal stenosis or neural foramina narrowing. C3-4: Laminectomy postop changes. No bony spinal canal stenosis or neural foramina narrowing. C4-5: Postoperative changes. Severe right neural foramen narrowing due to uncovertebral joint hypertrophy. No left neural foramen narrowing. No significant bony spinal canal stenosis C5-6: Postoperative changes. Disc osteophyte complex results in mild spinal canal narrowing. Uncovertebral joint hypertrophy results in severe right and moderate left bony neural foramen narrowing.. C6-7: Right paracentral disc osteophyte complex results in moderate right lateral recess stenosis. Severe right and moderate left neural foramen narrowing due to uncovertebral joint hypertrophy. C7-T1: No significant spinal canal stenosis or neural foramen narrowing. Impression: 1. Postoperative changes of laminectomy at C3-4 and left sided open door lamino plasties at C4, C5 and C6 levels. Diffuse swelling the paraspinal soft tissues along the incision site consistent with postop changes. No evidence of hardware complication. 2. No fractures. Multilevel cervical spondylosis detailed above. Please note that all CT scans at this facility use dose modulation, iterative reconstruction, and/or weight-based dosing when appropriate to reduce radiation dose to as low as reasonably achievable. Dictated by Enrico Green MD @ 01/12/2022 1:50:13 PM (Electronic Signature) ECG Data Attestation: I personally reviewed and interpreted this ECG as follows: (Sinus tachycardia, 108 beats per minute. QT corrected 450 milliseconds. No acute ischemia.) Prior ECG tracings: not available for review Critical Care Time Critical Care Time Critical Care Time: No Discharge Plan Discharge Clinical Impression: Sepsis, Postoperative fever, Pneumonia Patient Disposition: Admitted As Inpatient Condition: Improved Prescriptions: No Action alpha lipoic acid 600 mg capsule 600 mg PO .Bedtime coenzyme Q10 100 mg capsule PO DAILY hfwnwhr-grwpnietm-feue Tablet 1 tab PO .qd Fish Oil PO QDAY ginkgo biloba 40 mg tablet 40 mg PO QDAY Rx Instructions: give with meal/snack ferrous fumarate-vitamin C 132-250 mg tablet PO QDAY azelaic acid 15 % gel 15 topical BID fluticasone propionate 110 mcg/actuation HFA aerosol inhaler 1 inhalation BID hydrochlorothiazide 25 mg tablet 25 mg PO DAILY metformin 500 mg tablet 1,000 mg PO BIDWMEAL loratadine 10 mg capsule 10 mg PO DAILY metronidazole 0.75 % gel 1 topical BID Rx Instructions: THIN FILM TO AFFECTED AREA AFTER WASHING nystatin 100,000 unit/gram cream 1 topical .2-3X/Day pramipexole 0.125 mg tablet 0.625 mg PO DAILY Rx Instructions: TAKES 3 IN THE EVENING AND 2 AT BEDTIME rivaroxaban 10 mg tablet 10 mg PO DAILY trazodone 100 mg tablet 200 mg PO HS valacyclovir 500 mg tablet 500 mg PO BID PRN Rx Instructions: one tab bid for 3 days prn. venlafaxine 75 mg capsule,extended release 24hr 225 mg PO DAILY Rx Instructions: take with 150mg for total dose of 225mg daily. diclofenac sodium 1 % gel 2 topical QID Lancets Not Applicable BID Diabetic meter Not Applicable pregabalin 150 mg capsule 150 mg PO TID Qty: 270 1RF polyethylene glycol 3350 [Miralax] 17 gram/dose powder 4 g PO ONCE insulin glargine 100 unit/mL (3 mL) insulin pen 24 unit subcut QAM Qty: 45 3RF insulin aspart U-100 100 unit/mL (3 mL) insulin pen 8 unit subcut TIDWMEAL Qty: 45 3RF glipizide 10 mg tablet extended release 24hr 10 mg PO QDAY Qty: 90 0RF oxycodone-acetaminophen 10-325 mg tablet 1 - 2 tab PO BID PRN (Reason: pain) Qty: 30 0RF (DME) Diabetic Test Strips Misc See Rx Instructions .Route Qty: 300 4RF Rx Instructions: testing TID (DME) Blood Glucose Meter Misc See Rx Instructions .ROUTE Qty: 1 0RF Rx Instructions: As directed alcohol swabs [Alcohol Pads] Pads, Medicated 1 pad topical TID Qty: 200 11RF (DME) lancets Misc See Rx Instructions .ROUTE Qty: 200 11RF Rx Instructions: As directed, testing TID (DME) BD AutoShield Duo Pen Needle 30 gauge x 3/16 needle See Rx Instructions .ROUTE Qty: 100 11RF Rx Instructions: As directed, testing TID Follow Up/Referrals: Anoop Emery MD [Primary Care Provider] -
--- NOTE | 2022-01-12 11:55 | CRLHL7_ITS ---
For Patients: As a result of the Cures Act, medical imaging exams and procedure reports are released immediately into your electronic medical record. You may view this report before your referring provider. If you have questions, please contact your health care provider. INDICATION: Postoperative fever COMPARISON: June 08, 2021 TECHNIQUE: Single-view study obtained portably January 12, 2022 at 12:50 p.m. FINDINGS: TUBES AND LINES: None. HEART AND MEDIASTINUM: The heart size is normal. The mediastinal contour appears normal for patient age. LUNGS AND PLEURAL SPACES: Left lower lobe airspace process new since the prior study. This could be atelectasis, aspiration or pneumonia.The pleural spaces are unremarkable. OSSEOUS STRUCTURES: Re- demonstration of a nonacute left clavicular fracture IMPRESSION: Left lower lobe airspace process new since the prior study. This could be atelectasis, aspiration or pneumonia. Dictated by Logan Larkin MD @ 01/12/2022 1:19:51 PM (Electronically Signed)
[2022-01-12] MEDS: 0.9 % SODIUM CHLORIDE 1000 ml 1,000 ML IV (12:32)
--- OUTSIDE RECORDS SUMMARY | 2022-01-12 12:32 | XMS_ITS | Encounter Summary ---
:1955 Author Organization [facility] Address [address] [place] [id number] Care Team Providers Name Role Phone Unavailable Primary Care Provider Unavailable Reason for Referral Outpatient (Routine) - Authorized Specialty Diagnoses / Procedures Referred By Contact Refer red To Contact Orthopedic Surgery Cathy Kelley Rochest Van DUMAS, C.N.P. [address] [place] [phone] Referral ID Status Reason Start Date Expiration Date Visits V isits Requested Authorized [id number] Authorized 12/27/2021 12/26/2024 1 1 Scheduling Instructions There will be imaging and testing relate d to this appointment utpatient (Routine) - Authorized Specialty Diagnoses / Procedures Referred By Contact Refer red To Contact Orthopedic Surgery [facility] C.N[facility] [address] [place] [phone] Referral ID Status Reason Start Date Expiration Date Visits V isits Requested Authorized [id number] Authorized 12/27/2021 12/26/2024 1 1 Scheduling Instructions This visit will be with a member of Dr. Kearns's care team/ARNIE Encounter Details Date Type Department Care Team Description 12/24/2021 - Hospital Encounter [facility] Javier, Myelopath y Cervical (HCC) (Primary Dx); 12/28/2021 [facility] M.D. 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 Never 12/12/2021 How many drinks containing alcohol do you have on a typical Not asked day when you are drinking? How often do you have six or more drinks on one occasion? No t asked Social Isolation Answer Date Recorded In a typical week, how many times do you More than three yvette es a week 12/12/2021 talk on the phone with family, friends, or neighbors? How often do you get together with friends More than three t imes a week 12/12/2021 or relatives? How often do you attend tenriism or Never 2021 jehovah's witness services? Do you belong to any clubs or Yes 12/12/2021 organizations such as tenriism groups, unions, fraternal or athletic groups, or school groups? How often do you attend meetings of the More than 4 times pe r year 12/12/2021 clubs or organizations you belong to? Are you now , , , 12/12/2021 , never or living with a partner? Physical Activity Answer Date Recorded On average, how many days per week do you engage in moderate to 0 days 12/12/2021 strenuous exercise (like walking fast, running, jogging, dancing, swimming, biking, or other activities that cause a light or heavy sweat)? On average, how many minutes do you engage in exercise at th is 0 min 07/15/2020 level? Stress Answer Date Recorded Do you feel stress - tense, restless, nervous, or anxious, R ather much 12/12/2021 or unable to sleep at night because your mind is troubled all the time - these days? Financial Resource Strain Answer Date Recorded How hard is it for you to pay for the very basics like Not h nya at all 12/12/2021 food, housing, medical care, and heating? Intimate Partner Violence Answer Date Recorded Within the last year, have you been afraid of your partner o r No 12/12/2021 ex-partner? Within the last year, have you been humiliated or emotionall y No 12/12/2021 abused in other ways by your partner or ex-partner? Within the last year, have you been kicked, hit, slapped, or No 12/12/2021 otherwise physically hurt by your partner or ex-partner? Within the last year, have you been raped or forced to have any No 12/12/2021 kind of sexual activity by your partner or ex-partner? Food Insecurity Answer Date Recorded Within the past 12 months, you worried that your food would Never true 12/12/2021 run out before you got money to buy more. Within the past 12 months, the food you bought just didn't N ever true 12/12/2021 last and you didn't have money to get more. Transportation Needs Answer Date Recorded In the past 12 months, has lack of transportation kept you f rom Yes 12/12/2021 medical appointments or from getting medications? In the past 12 months, has lack of transportation kept you f rom No 12/12/2021 meetings, work, or getting things needed for daily living? Housing Stability Answer Date Recorded In the last 12 months, was there a time when you were not ab le No 12/12/2021 to pay the mortgage or rent on time? In the last 12 months, how many places have you lived? 1 12/12/2021 In the last 12 months, was there a time when you did not hav e a No 12/12/[address] sleep or slept in a assisted (including now)? Education Answer Date Recorded What is the highest level of school Master's degree (e.g., M A, MS, 07/15/2020 you have completed or the highest Tiara, MEd, SOAP DRIER TENDER, ODILIA) degree you have received? Sex Assigned at Date Recorded Female 07/21/2017 2:58 PM CDT documented as of this encounter Last Filed Vital Signs Vital Sign Reading Time Taken Comments Blood Pressure 151/66 12/28/2021 2:35 PM CDT Pulse 70 12/28/2021 2:35 PM CDT Temperature 36.7 ??C (98.1 ??F) 12/28/2021 2:35 PM CDT Respiratory Rate 16 12/28/2021 2:35 PM CDT Oxygen Saturation 95% 12/28/2021 2:35 PM CDT Inhaled Oxygen Concentration - - Weight 127 kg (279 lb 12.2 oz) 12/24/2021 10:31 AM CDT Height 175.3 cm (5' 9) 12/24/2021 10:31 AM CDT Body Mass Index 41.31 12/24/2021 10:31 AM CDT documented in this encounter Discharge Summaries Cathy Kelley APRN, C.N.P. - 12/28/2021 3:15 PM CDT DISCHARGE SUMMARY BRIEF OVERVIEW Hospital: [facility] Discharge Provider: Wilmer Kearns M.D. Primary Team: T Orthopedic Surgery - Javier No primary care provider on file. Primary Care Provider Phone Number: None Primary Care Provider Fax Number: None Other Providers: None Admission Date: 12/24/2021 Discharge Date:12/28/2021 PRINCIPAL DIAGNOSIS Myelopathy Cervical (HCC) SECONDARY DIAGNOSES Principal Problem: Myelopathy Cervical (HCC) Resolved Problems: * No resolved hospital problems. * Surgery Information This Encounter Past Procedures (12/25/2020 to Today) Date Procedures Providers Location 12/24/2021 LAMINOPLASTY POSTERIOR CERVICAL C3-7. Wilmer Kearns M.D.Bernatz, James T, M.D. RSTROMB OR DISCHARGE DISPOSITION [facility] OUTPATIENT FOLLOW UP For appointment details refer to your Patient Appointment Guide. TEST RESULTS PENDING AT DISCHARGE Pending Labs None DETAILS OF HOSPITAL STAY REASON FOR ADMISSION Myelopathy Cervical (HCC) HOSPITAL COURSE Surgery Information This Encounter Past Procedures (12/25/2020 to Today) Date Procedures Providers Location 12/24/2021 LAMINOPLASTY POSTERIOR CERVICAL C3-7. Wilmer Kearns M.D.Tho Heredia M.D. [facility] OR Y[facility] HaLucianoNerissa was taken to the operative room by Wilmer Kearns, * for the procedure listed above. The intraoperative as well as the immediate postoperative course were uncomplicated. For further details of the surgery please see the operative note. The patient was transferred from the PACU to the general care floor for continued observation and monitoring. She progressed in the usual post-operative fashion without complications. The patient was treated with perioperative IV antibiotics. She was given liquids by mouth and eventually advanced as toleratedtowards a more general diet. Her pain was well controlled with oral pain medications. Physical therapy / Occupational therapy was consulted for assistance with mobilization and gait training. She was mobilizing without difficulty and was compliant with any activity restrictions. Her incision remained intact with no concerns. Her bowel and bladder function were acceptable. She then met criteria for discharge and was later dismissed from the hospital. For any further details please see the most recentorthopedic surgery progress note and any other co-managing teams dated 12/25/2021. 1. You may shower on the third day after surgery. Remove your dressing gently. Beneath your dressingyou will see white Steri-strips, which you should leave in place. They will fall off on their own inthe next 10-14 days. We will take the remaining strips off at your postop wound check. Two of the Steri-strips are holding down the 2 ends of the sub-cuticular suture, which is beneath your skin. Most of this suture and all of the other deeper ones are inside and will dissolve with time. At your woundcheck, we will cut these loose ends flush to your skin. If the loose ends come up sooner than your scheduled wound check visit, you can call and come into the office early or hold the loose ends down with a Band-Aid or apply some alcohol to the area, pull the suture tight and have someone cut it flushto your skin. When you shower let the water and soap run over the surgical incision. Do not rub or scrub the incision. Keep the incision clean and dry. If you are ever concerned about your incision, you should call us. We may ask you to email a photo, as well. 2. After the 3rd week, as long as your incision looks healthy at your wound check, you may apply ointments/lotions (like Vitamin E Oil) to the incision. You may gently massage these into your skin. Youshould only use ointments/lotions, which have not caused abnormal skin reactions when you have used them previously. If you get a reaction or if the incision starts to turn red, then stop using ointments/lotions and call us. It takes 6-12mo to achieve the best cosmetic result with your incision. Over this time the firmness/bumpiness beneath the incision, which is the Platysma muscle suture line, typically will smooth out. 3. You should wear your soft cervical collar as much as you can tolerate for the next 6 weeks. You should take it off to shower and you may need to take it off to eat as well. 4. You may sleep in any position that is comfortable to you. You may resume sexual relations when you feel up to it. The general rule of thumb for all activities in the first 12 weeks after surgery is:If it hurts, Don't do it. 5. Driving is more of a legal question than a medical one. When you are able to look sufficiently left and right at a rapid rate to allow you to see and respond to all traffic AND you no longer requirepain pills (like Percocet and Valium) during the day, then you are medically OK to drive. We do not clear you to drive. Don't drive if you are impaired by strong pain medications. You should check with your insurer and possibly the State to insure there are no other stipulations needed prior to returning to the wheel. A safe alternative is to wait to drive until you come to your 6 week visit. Most patients at that time will be ready to drive. At that visit, as long as your recovery is going as pl anned, we ask you to stop wearing the collar. Also, by that point most patients no longer require strong pain medications. 6. Your voice may be hoarse for a while. As we discussed at your preoperative visit, there are multiple reasons for this and most resolve with time. Again, drink plenty of liquids and be patient as your voice returns to its normal volume, tone and pitch. 7. For the next TWO YEARS - please notify your dentist you have had a cervical spine fusion prior toany procedure more invasive than a routine screening examination and cleaning. They may prescribe you prophylactic antibiotics, if indicated. Try to avoid all elective dental work for 6 months after surgery. If you need to have a dental procedure in the first 6 months after surgery, you need to take an antibiotic pill prior to the procedure. You can call us for this prescription or for directions regarding your need for prophylactic antibiotic prior to invasive dental procedures in the first 6 months. 8. EXERCISE: The best exercise is walking in the first 6 weeks. You may start this immediately. You may also use the recumbent bike. As your post-operative recovery progresses, you may resume the elliptical animal trainer. NO RUNNING or SPORTS, until we have seen fusion on X-ray or at 6 months from the date of surgery, which ever comes first. Running and high impact exercise, are not the best forms of cardio-vascular exercise for your neck, you should consider changing your workouts permanently following surgery to include low-impact cardio-vascular exercises. Swimming is a great workout that can be started at 3 months after surgery. 9. Neck pain is common after neck surgery. The two most common areas to be painful are your throat and the back of your neck, where it meets your chest. The pain in the back of your neck may be relatedto stretched tissues in your facet joints, which had become tight from years of arthritis and disc disease. The pain should subside with time, measured in weeks. Repetitive activities using your arms, especially above your head, may aggravate muscle spasms around your neck and upper back. You may needto modify your activity with this in mind. Throat pain in general subsides within a couple days to weeks of surgery. 10. Do not lift objects >10 lbs above your head for the first 6 weeks after surgery. Light housework and preparing meals is OK. 11. Do not lift more than 20 lbs for the first 6 weeks after surgery. Physical therapy is usually not required, but if you had significant weakness or if your neck range of motion is stiffer than expected, we may order physical therapy at your 6 week visit. After 6 weeks, you can resume lifting weights. Start light, increasing repetitions, before your increase weight. 12. Caution - Climbing stairs while you are wearing your cervical collar may be a fall hazard. Always use a railing when one exists. 13. DO NOT SMOKE or use nicotine containing products (like smokeless tobacco). This increases the chance that your bone will not heal properly, that you will get an infection and that you will continueto have neck pain. 14. Return to Work: It is our policy to recommend 6-weeks off for anyone undergoing this surgery. Ifyou can plant nursery worker, you can begin doing light desk/phone work as tolerated about 2 weeks after surgery. You could return to light office work as early as 2-4 weeks if needed and desired. REMEMBER to sit- up straight and organize your desk so that everything is in easy reach. Prolonged computer timeis a common cause of back and neck pain, so try to limit this or take frequent breaks. 15. Diet: Resume your usual diet. Your throat may be sore for the next several weeks. Smooth, soft, cool foods may be best tolerated. Avoid chips and similar sharp foods for the next 2 weeks. Insure you sit up straight when you eat and chew your food well. You may have a sensation of having a lump in your throat as the pain subsides. It may seem funny, but for the next several weeks you will need to think about eating when you eat. Drink plenty of liquids. Liquids will help with throat pain and withimproving your ability to swallow foods as your throat heals. If you are having trouble with food/drink going into the wrong pipe, or if you are choking when you eat or if you cannot eat a regular amount of food, let us know or go to an ER if it is after hours. 16. What to Watch For: Call or come to our clinic or the nearest urgent/emergent care facility, if you are having trouble breathing. Please contact our office for any of the following: - Oral temperature greater than 100.5?? F - Excessive redness, swelling, or drainage at the incision site, or swelling in the neck - New, increasing pain/numbness/weakness in your arms/legs, severe neck pain that is not adequately relieved by your pain medications or problems with balance or urination. - Significant trauma to your neck - Difficulty breathing, if this occurs, immediately report this to a doctor to go to the ER or call 911 - Any concern relating to your recovery that you feel needs to be addressed before your next visit - For general medical problems or questions/concerns regarding your routine medications, you should contact your primary care physician. 17. Continue all regular medications you were taking prior to surgery, EXCEPT DO NOT take NSAIDs (like Motrin, Naprosyn, Aleve, Mobic, Aspirin, Celebrex) for the next 6-12wks. We ask you to avoid NSAIDs, because they may reduce the chance of fusion, which is the goal of the surgery you just underwent.If you have medical conditions (like arthritis) that flare to an intolerable level, because you are not taking these medications, you can decide if the pain is bad enough that you want to resume the medication and incur some risk of reduced chance of fusion. 18. Remember, as we discussed, the typical follow-up schedule after your surgery is: 1. 2-3 weeks for a wound check and suture removal, may be done locally by PCP 2. 6 weeks with AP/Lateral X-rays and brace weaning instructions 3. 3 months for a clinical follow-up, to make sure you have responded to surgery and are progressing well with your rehabilitation and recovery. (4 view X-rays) 4. 6 months for a clinical and anatomic follow-up. (4 view X-rays) 5. 1 year (4 view X-ray & CT scan) Contact Info: If the patient has general questions or concerns please call Dr. Kearns's team at during regular weekday working hours (8 am to 5 pm). For follow up appointments, call .For emergencies at night or on weekends the patient may contact Dr. Kearns's service through the [facility] potato chip sacking machine operator at . THANK YOU AND GET WELL SOON! Dr. Kearns Team CONSULTS ORDERED DURING THIS ADMISSION IP CONSULT TO DIABETES IP CONSULT TO CARE MANAGEMENT IP CONSULT TO CARE MANAGEMENT CONDITION AT DISCHARGE stable Discharge instructions were provided to the patient and caregiver(s). documented in this encounter Discharge Instructions Discharge InstructionsDilshad Mendoza APRN, C.N.P., D.N.P. - 12/28/2021 1:15 PM CDT BLOOD GLUCOSE MANAGEMENT: Monitor blood glucose four times daily before meals and at bedtime. Blood glucose goal is 100-140 mg/dL. Most recent A1c on record: Lab Results Component Value Date HGBA1C 9.0 (H) 12/18/2021 Please have Provider of Care at correction facility review blood glucoses at least twice weeklyto determine if changes in insulin therapy are indicated, or earlier if blood glucose values are consistently out of goal range. As Diabetes and Nutritional Education is important to your diabetes management, yearly follow up with a local Certified Wellness Program Coordinator and Dietitian is recommended. Please check with your insurance company asdiabetes education visits are commonly covered. Your primary care provider can provide referrals foreducation. Discharge Instr - Adina Wilks O.T. - 12/25/2021 3:49 PM CDT Occupational Therapy Discharge Summary MOBILITY RESTRICTIONS/PRECAUTIONS: Other Precautions: spinal precautions, soft cervical collar, fallrisk CURRENT FUNCTIONAL STATUS: Grooming Grooming Level of Assistance: Minimal assistance Grooming Location: Seated at sink Grooming Comments: Facilitation of grooming routine at sink, with patient requesting to sit on her walker for support due to fatigue. Assistance required for opening tooth paste tube due to weakness; patient able to perform oral and facial cares with set-up of materials. Toileting Toileting Level of Assistance: Modified independent Toileting Comments: Assessed patient participation in posterior laure cares. Patient able to perform without physical assistance or cueing. Education provided to patient on performing task without twisting for adherence to precautions and for comfort during movement Lower Body Dressing LE Dressing Level of Assistance: Supervision/Set-up LE Dressing Comments: Education on figure four method to doff socks with adherence to spinal precautions prior to returning to bed. Patient reports that this is how she normally dons/doffs socks and pants. She is able to complete with increased time and effort; supervision required for safety while seated edge of bed. Toilet Transfers # of Assistants: 1 Level of Assistance: Contact guard assistance Transfer Equipment: Grab bars Transfer Approach: To and from, Ambulating COGNITIVE ASSESSMENTS PERFORMED: RECOMMENDATIONS: Discharge Therapy Needs - OT: Ongoing skilled occupational therapy Level of Care Needed - OT: Assistance with toilet/shower transfers, Assistance with medication set up/administration, Assistance with showering/bathing, Assistance with dressing, Assistance with meal preparation, Assistance with transportation, Assistance with housekeeping, Assistance with shopping Discharge information provided on 12/25/2021 Contact information: [facility], [address], documented in this encounter Medications at Time of Discharge Medication Sig Dispensed Refills Start Date End Date acetaminophen (TYLENOL) 500 Take 2 tablets 0 12/15 mg tablet (1,000 mg total) by mouth 4 (four) times a day. alpha lipoic acid 600 mg Take 600 mg by 0 capsule mouth at bedtime. co-enzyme Q-10 (CO Q-10) Take 1 capsule by 0 04/17 100 mg capsule mouth daily. cranberry 400 mg capsule Take 400 mg by 0 019 mouth daily. diazePAM (VALIUM) 5 mg Take 1 tablet (5 mg 10 tablet 0 12/15 tablet total) by mouth 3 (three) times a day as needed for muscle spasms. fluticasone propionate Inhale 1 puff 2 0 10/01/19 21 (FLOVENT HFA) 110 (two) times a day. mcg/actuation inhaler FSH/FLX/PRIM/CUR/BOR/OM3,6, Take 1 capsule by 0 0 05/01/2016 9 5 (OMEGA 3-6-9 FATTY mouth daily. ACIDS ORAL) ginkgo biloba 40 mg tablet Take 120 mg by 0 mouth daily. glipiZIDE (GLUCOTROL XL) 5 Take 5 mg by mouth 0 0 09/03/2021 mg 24 hr tablet daily. hydroCHLOROthiazide Take 25 mg by mouth 0 017 (for_HYDRODIURIL) 25 mg daily. tablet IRON,CARBONYL/ASCORBIC ACID Take 1 tablet by 0 (VITRON-C ORAL) mouth 2 (two) times a day. metFORMIN (for_GLUCOPHAGE) Take 1,000 mg by 0 10/2016 500 mg tablet mouth 2 (two) times a day with meals. multivitamin tablet Take 1 tablet by 0 04/25/2011 mouth daily. oxyCODONE (ROXICODONE) 5 mg Take 1 tablet (5 mg 18 tablet 0 12/27/2021 immediate release total) by mouth tabletIndications: Acute every 4 (four) Pain hours as needed for moderate pain or score 4-6 of 10 (if other analgesics fail) Indication: Acute Pain. polyethylene glycol Take 1 packet (17 g 0 022 (MIRALAX) 17 gram powder total) by mouth packetIndications: daily Indications: constipation constipation. Dissolve each 17 g dose in 240 mLs (8 ounces) of beverage. pramipexole (MIRAPEX) 0.125 Take 2-3 tablets by 0 08/29/2015 mg tablet mouth 2 (two) times a day. 3 tabs in the afternoon, 2 tabs at bedtime pregabalin (LYRICA) 150 mg Take 1 capsule (150 60 capsule 5 03/31/2017 capsule mg total) by mouth 2 (two) times a day. traZODone (DESYREL) 100 mg Take 100 mg by 0 02/16 tablet mouth daily. Taking 2 tablets at bedtime turmeric root extract 500 Take by mouth 0 mg capsule daily. venlafaxine XR (EFFEXOR XR) Take 1 capsule by 0 0 03/19/2016 150 mg 24 hr capsule mouth daily. With 75 mg capsule = 225 mg total dose venlafaxine XR (EFFEXOR-XR) Take 75 mg by mouth 0 05/25/2020 75 mg 24 hr capsule daily. Take with 150 mg = 225 mg total daily. alcohol swabs pads, Use as needed for 200 each 0 2 medicated diabetes control blood glucose ctl Glucose control 1 each 0 12/28/2021 high,nml,low solution solution provides an easy way to ensure accurate blood glucose testing. blood sugar diagnostic 4 test daily. 365 test 0 12/28/2021 strips blood-glucose meter misc Test as directed 1 each 0 12/28 for diabetes control. insulin aspart U-100 Inject 8 Units 15 mL 0 12/28/2021 (NovoLOG Flexpen U-100 under the skin 3 Insulin) 100 unit/mL (3 mL) (three) times a day injection with meals. Give 8 units three times daily with meals. Hold if not eating or eating less than 50% of diet. Dose may need further adjustments insulin glargine (Lantus Inject 22 Units 15 mL 0 2021 Solostar U-100 Insulin) 100 under the skin unit/mL (3 mL) injection every morning. lancets 4 each daily. 365 each 0 12/28/2021 nystatin (for_MYCOSTATIN) Apply 1 application 0 0 10/30/2016 100,000 unit/gram cream topically 2 (two) times a day as needed. pen needle, diabetic (BD 4 each (4 Injection 365 each 0 Ultra-Fine Mini Pen Needle) total) daily. 31 gauge x 3/16 needle valACYclovir (VALTREX) 500 0 1 mg tablet VOLTAREN 1 % gel Apply 4 g topically 0 12/05/2016 4 (four) times a day as needed. Xarelto 10 mg tablet Take 10 mg by mouth 0 2021 daily. documented as of this encounter Progress Notes Dilshad Mendoza, ALESIA, C.N.P., D.N.P. - 12/28/2021 11:22 AM CDT SUBJECTIVE LOS: 4 days DCS continues to follow this 66 y.o. female for diabetes admitted on 12/24/2021 for Myelopathy Cervical (HCC) PREADMISSION THERAPY: Glipizide 5 mg daily and Metformin 500 mg, 2 tablets twice daily Patient is in no acute distress. Resting in bed. Reviewed hospital insulin regimen. Reviewed dismissal plan. In previous visit, discussed with patient that her A1C is elevated and could benefit from adding a GLP-1 receptor agonist, but unfortunately this is cost prohibitive. She is agreeable to starting insulin. OBJECTIVE Blood glucose results in last 24 hours: Recent Labs 12/28/21 0741 12/28/21 0315 12/27/21 2101 12/27/21 1633 12/27/21 1254 GLUCOSEPOC 226 H 181 H 168 H 236 H 205 H Yesterday, given: Lantus 22 units in the morning , NovoLog 1 unit for every 8 grams of carbohydrates consumed with meals (10-14-12 units with respective meals), and NovoLog 16 units total for the correction of hyperglycemia. Steroids: None Current Diet Adult Diet Regular starting at 12/25 1831 VITALS Temperature: 36.5 ??C Resp Rate: 18 Blood Pressure: 141/55 BP Location: Right arm;Upper SpO2: 93 % Flow Rate (L/min): 2 L/min Height: 175.3 cm Weight: 127 kg Body mass index is 41.31 kg/m??. LABORATORY Lab Results Component Value Date CREATININE 0.69 12/24/2021 Estimated Creatinine Clearance: 111.5 mL/min (by C-G formula based on SCr of 0.69 mg/dL). ASSESSMENT / PLAN #1 Diabetes mellitus, type 2, uncontrolled with hyperglycemia A1c 9% #2 Obesity INPATIENT PLAN: - Blood glucose monitoring: four times daily and 0200 - Glucose goal: 140-180 mg/dL - Basal: Lantus 22 units in the morning. - Mealtime: NovoLog 1 unit for every 8 grams of carbohydrates consumed with meals. - Correction scale: NovoLog moderate correction scale three times a day, modified bedtime correctionscale, and mild correction scale 0200 - DCS will evaluate and adjust insulin doses as indicated to achieve glycemic goal. ANTICIPATED DISMISSAL PLAN: Preadmission regimen with glipizide and Metformin(current eGFR >90 with a creatinine of 0.69. Patient is okay now with starting insulin Blood glucose frequency: four times daily Goal: 100-140 mg/dL Please page DCS within 24 hours prior to hospital dismissal for final dismissal recommendations. Discussed above plan with the patient. Patient is alert and oriented and in agreement with the plan. DCS pager [phone] will continue to follow. Call primary service for diabetes concerns between [phone]. Primary service to contact DCS via hospital potato chip sacking machine operator for questions. Yanet Sanchez - 12/28/2021 10:35 AM CDT Occupational Therapy Acute Hospital Inpatient Treatment SUBJECTIVE Patient's Name: Yaz Adames Referring/Attending Provider: Wilmer Kearns M.D. Medical Diagnosis: Myelopathy Cervical (HCC) [G95.9] Reason for Referral: Occupational Therapy Evaluation and Treatment OT general acute Onset Date: 12/24/21 Payor: MEDICARE / Plan: MEDICARE A AND B / Product Type: Medicare / History of Present Illness:Patient has a past history of cervical myelopathy and is status post posterior laminoplasty (C3-7) with Dr. Kearns on 12/24/21. Family/Caregiver Present: No Patient/Caregiver Goals: Discharge to ongoing rehab prior to returning home Patient Comments: Patient lying in bed upon OT arrival, reporting that she just returned from the bathroom with nursing staff. Patient is agreeable to participate in OT session. She reports pain 4/10 at rest and 6/10 post-activity; nursing staff notified following session. Fall Risk (65 and older) Fall in the last 12 months: Yes Did you have an injury with the fall?: (Patient reports that she does not remember falling. Her daughter told her that she has had 2 falls within the past year) Precautions Other Precautions: spinal precautions, soft cervical collar for comfort, fall risk OBJECTIVE Vitals not formally assessed during session. No concerns during chart review and the patient had no signs or symptoms consistent with vital changes during therapy session. Grooming Grooming Location: Chair Grooming Delivery: Assessed, Instructed, Educated, Facilitated Grooming Level of Assistance: Supervision/Set-up Grooming Comments: Facilitation of seated grooming task while in chair. Educated patient on plan forthe session and expectations for independence with utilization of energy conservation techniques. Instruction provided on breaking task down into 3 parts to reduce fatigue: 1) washing hair 2) towel-drying hair 3) combing hair. Patient required 1 minute rest break between all 3 parts of task but was able to perform without assistance from therapist Bed Mobility - Supine to Sit # of Assistants: 1 Level of Assistance: Supervision/Set-up Device: Bed rail, Head of bed elevated Cuing: Verbal, Tactile Comments: Cueing for log roll sequence with increased time and effort for patient to sit edge of bed. No physical assistance from therapist reqiured Bed Mobility - Sit to Supine # of Assistants: 1 Level of Assistance: Supervision/Set-up Device: Bed rail, Head of bed elevated Cuing: Verbal, Tactile Comments: Cueing for reverse log roll technique. Increased time and effort required for patient to transition legs into bed Sit to Stand Transfers # of Assistants: 1 Transfer Surface: Bed, Chair Transfer Equipment: Gait belt, Platform walker Level of Assistance: Contact guard assistance Assessment/Delivery: Assessed, Educated, Facilitated, Therapist assisted Comments: Cueing for hand placement and breathing for symptom management. Patient tends to pull on platform walker to achieve upright positioning. Education provided on importance of pushing up from transfer surface to promote safety. Patient encouraged to sit up in the chair, however, requests to return to bed following seated grooming activity due to pain and fatigue Stand to Sit Transfers # of Assistants: 1 Transfer Surface: Bed, Chair Transfer Equipment: Gait belt, Platform walker Level of Assistance: Moderate assistance, Contact guard assistance Assessment/Delivery: Assessed, Facilitated, Therapist assisted, Instructed Comments: Verbal and tactile cues for hand placement and slow, controlled descend to chair. CGA required for safety. Patient required moderate assistance when performing stand to sit onto bed, as she demonstrated poor eccentric control and required assistance with maintaining upright position. Other OT Therapeutic Exercises Exercise/Total Joint Protocol: Facilitated collaborative discussion on therapeutic exercise plan forover the weekend. Education provided to patient on the importance of keeping body moving, even if she is unable to tolerate sitting in the chair. Prompted patient to think about exercises that she could perform while seated or lying down based on her usual exercise protocol called [employer] channel. Patient opted to perform exercise called juicy joints in which she could perform in supine or seated position, involving continued motion of her UEs. Note written on the whiteboard to remind patient to perform exercises 3-5 times per day to continue progress Team Communication: Patient's nurse was contacted and patient's status was discussed Inpatient AVS Complete - OT: Yes Inpatient AVS Completion Date - OT: 12/25/21 Outcome Measures [facility] Inpatient Short Form: Putting on and taking off regular lower body clothing?: A Little Putting on and taking off regular upper body clothing?: A Little Taking care of personal grooming such as brushing teeth?: None Bathing (including washing, rinsing, drying)?: A lot Toileting, which includes using toilet, bedpan, or urinal?: A Little Eating meals?: None Daily Activities Raw Score (max 24): 19 Daily Activities Standardized Score: 40.22 Interpretation: Clinicians answer the [facility] Inpatient Short Form based on observed patient activityand/or clinical judgement (ie. patient can be scored without physically performing each activity) Based on scoring guidelines using the raw score value: Those going to home had an average score at or above 18 Those going to facility had an average score at or below 17 Patient was left in bed at end of session with call light in reach, all needs met and questions answered. Assessment Discharge Therapy Needs - OT: Ongoing skilled occupational therapy Skilled therapy can include occupational therapy provided by home health, outpatient clinic, or a post-acute facility. The location of these services is determined by the patient's care team in partnership with patient/family. Level of Care Needed - OT: Assistance with toilet/shower transfers, Assistance with medication set up/administration, Assistance with showering/bathing, Assistance with dressing, Assistance with meal preparation, Assistance with transportation, Assistance with housekeeping, Assistance with shopping Recommended Adaptive Equipment - OT: Other (Comment) (ongoing) Barriers to Discharge Home: Current functional status, Fall risk, Safety concerns, Limited caregiveravailability Clinical Impression: Patient is progressing her OT functional goals. She performed self-cares with supervision and encouragement for implementation of energy conservation techniques. Patient appeared motivated to complete tasks in session. She had one instance of requiring moderate assistance x1 for functional transfer back to bed due to increased fatigue after activity. With continued encouragement, patient agrees to engage in continued therapeutic exercise over the weekend to facilitate continued progress prior to discharge from the hospital. Her performance continues to be limited by fatigue, limited activity tolerance, and post-operative pain. Patient's pain appears to be improving due to decreased use of soft cervical collar throughout the day. Patient is below their functional baseline and skilled occupational therapy services remain medically necessary for this patient to progress functional independence & safety as well as assist with discharge planning. Therapy team will continue to provide graded activities to promote patient???s functional return, safety, and quality of life in line with established functional rehabilitation goals. Rehab potential: Ms. Adames has good potential to achieve established occupational therapy goals within the time frame outlined below. Functional Goals: OT Goal #1: Patient will complete total body dressing with modified independence to reduce caregiverdependence and return to prior level of function by discharge. OT Goal #1 Status: Ongoing OT Goal #2: Patient will verbalize spinal precautions and demonstrate independent carry-over in self-care activities to promote safety and healing upon discharge. OT Goal #2 Status: Achieved OT Goal #3: Patient will tolerate standing at sink for grooming routine with supervision and use of platform four wheeled walker to progress standing balance and endurance during functional tasks upon discharge. OT Goal #3 Status: Ongoing OT Goal #4: Patient to perform toilet hygeine and transfer with modified independence to decrease caregiver assistance required upon discharge. OT Goal #4 Status: Ongoing Progress: Progressing toward goals Plan Occupational Therapy Attestation Statement: Patient agrees with the plan of care and goals. OT Frequency: OT Amount: 1 visit per day OT Frequency: 5 times per week OT Inpatient Duration : Until goals are met or hospital discharge Requires Inpatient OT Follow-Up: Yes OT - Next Inpatient Appointment: 12/31/21 Plan: Continue with current plan OT Plan Comments: Next session: progress functional mobility, standing grooming task, upper body dressing Treatment interventions may include: Treatment Interventions: Therapeutic exercise, Therapeutic functional activity, Self-care/home management Billing: Time Spent with Patient Therapeutic Interventions Home Management Training (min): 29 min Time Tracking Total Timed Units (min): 29 min Total Treatment Time (min): 29 min HUNTER Stauffer Associated attestation - Adina Shukla O.T. - 12/28/2021 4:17 PM CDT This therapist has reviewed all documentation and supervised today???s session. The therapist agreeswith the plan developed in collaboration with the patient. Katia Marinelli L.G.S.W., M.S.W. - 12/28/2021 9:42 AM CDT SUBJECTIVE Referral Data Discharge planning Sw met with patient to provide a supportive visit and discharge planning. Patient was laying in bed relaxing. SW updated patient regarding accepting correction facility. Patient reported she wouldlike a stretcher for transportation. Patient denied any coping concerns or having other needs. patient declined additional resources. Anticipated Needs Bathing, housekeeping, shopping, meal prep, dressing, grooming OBJECTIVE Patient remains hospitalized on Alexa 4c-128 ASSESSMENT / PLAN Assessment The Person(s) Present During Interview: patient appear to have insight into the patient's needs at this time and are planning appropriately for discharge needs. They report agreement with the below plan with no further questions at this time. Plan The patient is being prepared to discharge on 12/28/21 at 2:00pm if medically ready for transfer. Contact SOCIAL WORK if time needs to be changed. Transportation will be provided by [facility] ([phone]). Transportation will be paid for by patient. Daughter was called as well who informed SW that patient has a credit card with her ipad or another one in her suitcase. . Destination - Admitted Since 12/24/2021 Service Provider Selected Services Address Phone Fax Patient Preferred [facility] [address] [facility] [address] [phone] -- Contact: Nursing Transportation oxygen: No oxygen needed. NURSING: - Complete documentation in the Discharge Navigator including Nursing Report Info and Facility/Next Level of Care Info - Contact facility to give report on morning of discharge. - Send After Visit Summary and required packet of dismissal information with patient, including advance directive. PRIMARY SERVICE: - Provider to Provider call is not required. - Provide written prescriptions for all narcotics. After Visit Summary to Include: - All discharge medications include dosage, times for administration, diagnosis, and stop date. - Ongoing care - wound care, infection precautions and phone numbers to call. SOCIAL WORK: - Pre-admission screen has been completed. - Will continue to follow. Avery Guaman, M.S.W. 12/28/2021 Abdon Gill M.D. - 12/28/2021 5:29 AM CDT Orthopedic Spine Surgery Progress Note Orthopedic Service: [facility] Admission Day: 12/24/2021 SUBJECTIVE Mrs. Multani had no acute events overnight. Her pain is well controlled. She continues to improve with mobilization while working with PT, yesterday she was able to walk out into the halls, which is new for her. She denies nausea / vomiting overnight, and is tolerating and advancing diet. No concerns with her bladder or bowel function. She had a BM yesterday, and had just walked back from the bathroom prior to our conversation. She is pending placement at a SNF. VITALS Temperature: [36.5 ??C-37.1 ??C] 36.5 ??C Resp Rate: [18-20] 20 Blood Pressure: (133-150)/(55-66) 143/57 SpO2: [91 %-93 %] 92 % Pulse Rate: [69-83] 69 Output by Drain (mL) 12/26/21 0701 - 12/26/21 1900 12/26/21 190 - 12/27/21 0700 12/27/21 0701 - 12/27/21 1900 12/27/21 190 - 12/28/21 0529 Patient has no LDAs of requested type attached. PHYSICAL EXAM General: Lying in bed comfortably, NAD Neuro: Motor (UE) Deltoid?? Biceps?? Triceps Wrest ext Wrist flex Wet Process Operator Fing Abd?? R?? 5 5 5 5?? 5?? 5 5 L?? 5 5 5 5?? 5?? 5 5 Sensory (UE) ?C5 (Ax)?? C6 (MC)?? C7 (Mid finger)?? C8 (MACN)?? T1 (MBCN)?? R?? nl?? nl?? nl?? nl?? nl?? L?? nl?? nl?? nl?? nl?? nl?? Motor (LE) Iliopsoas Quad Hamstrings Tib Ant EHL Gastroc-soleus R?? 5 5 5?? 5?? 5?? 5?? L?? 5 5 5?? 5?? 5?? 5? Sensory (LE) L2?? (Groin)?? L3?? (Leg)?? L4?? (Knee)?? L5 ?? (Grt Toe)?? S1 ?? (Sm toe)?? R?? nl?? nl?? nl?? nl?? nl?? L?? nl?? nl?? nl?? nl?? nl? Vascular: DP 2+ bilaterally Dressing: Gauze and tegaderm dressing CDI Drain: none IMPRESSION & REPORT #1 Status post cervical laminoplasty on 12/24, doing well PLAN - Activity: Soft collar for comfort. Okay to remove for showering. Avoid lifting >10lbs. PT consult. - Antibiotics: None - Cultures: None - Diet: Advance as tolerated to general diabetic - Drains: Removed - Wound: Gauze/tegaderm, change as needed - Imaging: Upright x-rays completed - Montaño: Discontinued - DVT Prophylaxis: SCD's and early mobilization. No chemical DVT prophylaxis given spine surgery - Pain: Multimodal, NSAIDs okay - Disposition: Anticipate discharge to SNF; more referrals were sent yesterday Active Issues # Acute blood loss anemia - monitor CBC and transfuse as needed. Comorbidities Present on Admission #1 Myelopathy Cervical (HCC) For any questions or concerns from 6 am until 6 pm, please page Javier cruz. If outside of 06:00 - 18:00 on weekdays or any time on the weekend, please contact the [facility] Orthopedic Surgery house resident aeronautical project engineer at [phone]. Barbara Dyson R.R.T., L.R.T. - 12/27/2021 10:34 PM CDT 12/27/21 2233 BPAP/CPAP Therapy BPAP/CPAP Interface Full face mask Patient's Own Equipment Tubing;CPAP;Equipment inspected (per site policy) Skin barrier Liquid-filled membrane Ventilator Parameters Ventilator Parameters (Select Groups) BPAP/CPAP Rows BPAP/CPAP Mode CPAP;Per Home Settings O2 Flow Rate 0 L/min NPPV EPAP (CPAP) Setting 10 cm H2O Humidification Heated humidifier Liqiucell applied and patient placed on CPAP. Will continue to assist at night as needed. Electronically signed by: Barbara Dyson R.R.T., L.R.TCandy 12/27/21 10:30 PM CDT Carrie Umanzor P.T.A. - 12/27/2021 2:00 PM CDT Physical Therapy Inpatient Treatment Note SUBJECTIVE Patient's Name: Yaz HaLucianoNerissa Referring/Attending: Wilmre Kearns M.D. Medical Diagnosis: Myelopathy Cervical (HCC) [G95.9] Reason for Referral: PT Evaluate and Treat PT general acute Onset Date: 12/24/21 Payor: MEDICARE / Plan: MEDICARE A AND B / Product Type: Medicare / History of Present Illness: Patient has a past history of cervical myelopathy and is status post posterior laminoplasty (C3-7) with Dr. Kearns on 12/24/21. Family/Caregiver Present: No Patient/Caregiver Goals: Discharge to ongoing rehab prior to returning home Patient Comments: Megan (Re-LENKA-na) is agreeable to physical therapy today, stating pain is leveling out and states almost none at rest but increase with upright mobility. She does not feel safe to return home alone and is agreeable to short term rehab placement. Precautions Other Precautions: spinal precautions, soft cervical collar for comfort, fall risk Fall Risk (65 and older) Fall in the last 12 months: Yes Did you have an injury with the fall?: (Patient reports that she does not remember falling. Her daughter told her that she has had 2 falls within the past year) Are you fearful of falling?: No OBJECTIVE Treatment consisted of: Bed Mobility - Supine to Sit # of Assistants: 1 Level of Assistance: Supervision/Set-up Device: Bed rail, Head of bed elevated Cuing: Verbal, Tactile Comments: Patient uses bed features to come to seated and pivots using railing to sit edge of bed. Increased time and effort noted, no physical assist. Bed Mobility - Sit to Supine # of Assistants: 1 Level of Assistance: Supervision/Set-up Device: Bed rail, Head of bed elevated Cuing: Verbal, Tactile Comments: Used bed features, no assist until up in bed needing maximal assist to scoot. Sit to Stand Transfers # of Assistants: 1 Transfer Surface: Bed Transfer Equipment: Gait belt, Platform walker, Four-wheeled walker (Upwalker) Level of Assistance: Contact guard assistance Assessment/Delivery: Assessed, Educated, Facilitated, Therapist assisted Comments: Cued hand placement, breath control, stabilized patient's upright 4 wheeled walker as wheel locks are not functional Stand to Sit Transfers # of Assistants: 1 Transfer Surface: Chair Transfer Equipment: Gait belt, Platform walker, Four-wheeled walker Level of Assistance: Contact guard assistance Assessment/Delivery: Assessed, Facilitated, Therapist assisted, Instructed Comments: Verbal and tactile cues for hand placement and slow, controlled descend to chair Toilet Transfers # of Assistants: 1 Transfer Surface: Toilet Transfer Approach: To and from, Ambulating Transfer Equipment: Grab bars Level of Assistance: Supervision/set-up Assessment/Delivery: Assessed, Instructed Gait Assessment/Training Distance (m): 20 m Surface: Even, Smooth/hard Device: Gait belt, Platform walker, Four-wheeled walker # of Assistants: 1 Level of Assistance: Contact guard assistance Quality/Pattern: Shuffling, Decreased heel strike Stability: good Assessment of Gait: decreased gait speed, forward trunk flexion, varying step length, distance limited by increasing pain as patient remains upright Cueing Provided: Verbal, Tactile Training/Intervention: Facilitated gait using patient's upright 4 wheeled walker, verbal and tactilecues for posture and safety Response: Able to advance distance despite increasing pain, seated rest does not improve pain per patient, she prefers to return to supine to get relief Supine Exercises Supine Exercise - Side Addressed: Bilateral Supine Exercise: Ankle pumps, Quad sets, Heel slides Exercise Mode: Active motion against gravity Sets/Repetitions: 03/26 Education provided this session: spinal precautions and implications for mobility The patient/family educated on safe transfer techniques with functional mobility/activity. Patient's nurse was contacted and patient's status was discussed, Discussed patient's care with OT Inpatient AVS Complete - PT: No Patient was left in bed at end of session with call light in reach, all needs met and questions answered. Outcome Measures [facility] Inpatient Short Form: [facility] Basic Mobility (V.2) How much help from another person do you currently need???If the patient hasn't done an activity recently, how much help from another person do you think he/she would need if he/she tried? 1. Turning from your back to your side while in a flat bed without using bedrails?: A Little 2. Moving from lying on your back to sitting on the side of a flat bed without using bedrails?: A Little 3. Moving to and from a bed to a chair (including a wheelchair)?: A Little 4. Standing up from a chair using your arms (e.g., wheelchair, or bedside chair)?: A Little 5. To walk in hospital room?: A Little 6. Climbing 3-5 steps with a railing?: Total -[facility] Basic Mobility (V.2) Raw Score: 16 -[facility] Basic Mobility (V.2) Standardized Score: 38.32 Interpretation: Clinicians answer the -[facility] Inpatient Short Form based on observed patient activityand/or clinical judgement (ie. patient can be scored without physically performing each activity) Based on scoring guidelines using the raw score value: Those going to home had an average score at or above 18 Those going to facility had an average score at or below 17 Assessment Discharge Therapy Needs - PT: Ongoing skilled physical therapy Skilled therapy can include physical therapy provided by home health, outpatient clinic, or a post-acute facility. The location of these services is determined by the patient's care team in partnershipwith patient/family. Level of Care Needed - PT: Assistance with transfers (Comment), Assistance with walking and moving around the home, Assistance with bed mobility, Assistance with stairs, Physical assistance needed Barriers to Discharge Home: Current functional status, Fall risk, Safety concerns, Limited caregiveravailability From a physical therapy perspective, the level of care above has been recommended for Ms. Adames after hospital discharge. This level of care is based on her functional abilities during today's session. This may change throughout the hospital course and will be updated as appropriate. Clinical Impression of today's session: Yaz is progressing steadily toward physical therapy goals. She was able to advance ambulation into hallway this session and tolerated longer distance well overall, though limited by pain with prolonged upright positioning. Utilized soft collar for comfort and worked on standing rests to focus on deep breathing. Patient is using bed features heavily to transfer and in/out of bed and relies on her (broken) upright walker for stability during gait. Will continue to wean from bed features and recommend that she repair or replace walker. From a physical therapy standpoint, patient is not at functional baseline and will continue to benefit from skilled therapy intervention to restore and maximize function, maximize safety, optimize mobility, teach and educate family and/or caregivers, and facilitatereturn to prior level of function. Rehab potential: Ms. Adames has Good potential to achieve established physical therapy goals within the time frame outlined below. Functional Goals and Timeframes: PT Inpatient Goals PT Goal #1: Pt will transfer supine<>sit independently in order to decrease burden of care PT Goal #1 Status: Progressing PT Goal #2: Pt will transfer sit<>stand mod I with least restrictive assistive device in orderto increase functional independence PT Goal #2 Status: Progressing PT Goal #3: Pt will ambulate 30m mod I with least restrictive assistive device in order to improve functional mobility PT Goal #3 Status: Progressing Plan Treatment Plan: Plan: Continue with current plan PT Frequency: PT Frequency: 5 times per week PT Inpatient Duration : Until goals are met or hospital discharge Requires Inpatient Follow-Up: Yes PT - Next Inpatient Appointment: 12/28/21 PT Plan Comments: progress bed mobility, transfers, gait training andLE strengthening exercises as pt able Treatment interventions may include: Treatment/Interventions: Therapeutic exercise, Therapeutic functional activity, Neuromuscular re-education, Gait training, Self-care/home management CLEAN[employer]TER Visit Trackin Billing: Time Spent with Patient Therapeutic Interventions Therapeutic Activity (min): 23 min Time Tracking Total Timed Units (min): 23 min Total Treatment Time (min): 23 min Mark LewisTAris Katia Marinelli L.G.S.W., M.S.W. - 12/27/2021 1:26 PM CDT SUBJECTIVE SW met with patient to provide support and discharge planning. Patient was playing on her iPad at time of visit. Patient denied any coping concerns and was interested in updates for discharge. SW updated patient and discussed need for sending more referrals. Patient was open to sending more referrals and provided sw with 4 additional options. Patient denied any other needs at this time. OBJECTIVE Patient remains hospitalized on Alexa [id number] and is medically ready. The following referrals have been placed: Destination - Admitted Since 12/24/2021 Service Provider Request Status Selected Services Address Phone Fax Patient Preferred [facility] Pending - Request Sent N/A [address] [facility] [id number] [phone] -- [facility] Pending - Request Sent N/A [address] [facility] [id number] [phone] -- [facility] Pending - Request Sent N/A [id number] [facility] [place] [address] -- [facility] Pending - Request Sent N/A [address] [facility] [address] -- [facility] Pending - Request Sent N/A [address] [facility] [facility] [address] -- [facility] Pending - Request Sent N/A [address] [facility] [address] [phone] -- [facility] Declined Bariatric N/A [address] [facility] [address] [phone] -- ASSESSMENT / PLAN ASSESSMENT Patient was alert, oriented and engaged in conversation. Patient appears to be coping as appropriateat this time and continues to have insight into her needs at discharge. PLAN Patient to discharge to facility when placement is found SW available for supportive visits and discharge planning Avery Guaman, M.S.W. 12/27/21 Yanet Sanchez N - 12/27/2021 11:29 AM CDT Occupational Therapy Acute Hospital Inpatient Treatment SUBJECTIVE Patient's Name: Yaz Adames Referring/Attending Provider: Wilmer Kearns M.D. Medical Diagnosis: Myelopathy Cervical (HCC) [G95.9] Reason for Referral: Occupational Therapy Evaluation and Treatment OT general acute Onset Date: 12/24/21 Payor: MEDICARE / Plan: MEDICARE A AND B / Product Type: Medicare / History of Present Illness:Patient has a past history of cervical myelopathy and is status post posterior laminoplasty (C3-7) with Dr. Kearns on 12/24/21. Family/Caregiver Present: No Patient/Caregiver Goals: Discharge to ongoing rehab prior to returning home Patient Comments: Patient lying in bed upon OT arrival. She reports feeling better today and is agreeable to OT session. Patient endorses moderate pain but does not assign numerical value. Nursing notified following session. Fall Risk (65 and older) Fall in the last 12 months: Yes Did you have an injury with the fall?: (Patient reports that she does not remember falling. Her daughter told her that she has had 2 falls within the past year) Precautions Other Precautions: spinal precautions, soft cervical collar for comfort, fall risk OBJECTIVE Vitals not formally assessed during session. No concerns during chart review and the patient had no signs or symptoms consistent with vital changes during therapy session. Bathing Bathing Location: Seated at sink Bathing Delivery: Assessed, Instructed, Therapist Assisted, Facilitated Body Parts Included in Task: Chest, Right arm, Left arm, Abdomen,Perineal area, Buttocks, Right upper leg, Left upper leg, Right lower leg, Left lower leg Body Parts Requiring Assistance to Wash/Dry: Perineal area, Buttocks, Right upper leg, Left upper leg, Right lower leg, Left lower leg Bathing Level of Assistance: Moderate assistance Bathing Comments: Facilitation and assessment of participation in sponge bathing task per patient request. Patient remained seated on her walker at the sink. Patient encouraged to participate as much as possible to promote independence, even though she receives assistance with full bathing task at home. She was agreeable to wash upper body but requested assistance with lower body due to increased fatigue. Moderate assistance provided by therapist throughout bathing task UE Dressing UE Dressing Delivery: Assessed UE Dressing Items Included: Orthotic (Soft cervical collar) UE Dressing Level of Assistance: Modified independent UE Dressing Location: Other (Comment) (Sitting at sink) UE Dressing Comments: Facilitation of donning/doffing soft cervical collar to perform skin check andsponge bath. Education provided to patient on removing soft collar daily to maintain skin integrity and reduce risk of breakdown. Second soft collar was ordered due to current being soiled with food. Instructed patient to use current soft collar for eating only and second, clean collar for all other ADLs to preserve cleanliness and reduce risk of infecting incision site LE Dressing LE Dressing Location: Seated on edge of bed LE Dressing Delivery: Assessed, Facilitated LE Dressing Items Included: Socks LE Dressing Level of Assistance: Supervision/Set-up LE Dressing Comments: Patient encouraged to don socks when seated edge of bed. Increased time and effort required to perform task, however, no physical assistance required. Patient reports that she chooses tasks to engage in based on how much energy expenditure it requires, as she tries to conserve her energy throughout the day Toileting Toileting Location: Toilet Toileting Delivery: Assessed Toileting Level of Assistance: Modified independent Toileting Comments: Patient performs anterior laure cares without physical assistance Adaptive Interventions Energy Conservation: Facilitated discussion on energy conservation techniques with patient report ofcurrently prioritizing tasks, receiving assistance, and pacing self throughout the day. She verbalizes that she is aware of her limitations and performs limited activities throughout the day due to low tolerance. After further education, patient requests to perform one activity per day in therapy sessions to conserve energy needed for the remainder of the day. Patient encouraged to sit up in the chair as often as possible to avoid long periods in bed and risk of pneumonia during hospitalization Adaptive Intervention/Education: Patient was educated on energy conservation and how to apply those techniques to activities of daily living. Bed Mobility - Supine to Sit # of Assistants: 1 Level of Assistance: Supervision/Set-up Device: Bed rail, Head of bed elevated Cuing: Verbal, Tactile Comments: Cueing for log roll sequence with increased time and effort for patient to sit edge of bed. No physical assistance from therapist reqiured Bed Mobility - Sit to Supine # of Assistants: 1 Level of Assistance: Supervision/Set-up Device: Bed rail, Head of bed elevated Cuing: Verbal, Tactile Comments: Cueing for reverse log roll technique. Increased time and effort required for patient to transition legs into bed Sit to Stand Transfers # of Assistants: 1 Transfer Surface: Bed Transfer Equipment: Gait belt, Platform walker Level of Assistance: Contact guard assistance Comments: Cueing for hand placement on bed to promote safe transfer. Contact guard assistance required due to patient tendency to pull up with walker Stand to Sit Transfers # of Assistants: 1 Transfer Surface: Chair Transfer Equipment: Gait belt, Platform walker Level of Assistance: Contact guard assistance Assessment/Delivery: Assessed, Facilitated, Therapist assisted, Instructed Comments: Verbal and tactile cues for hand placement and slow, controlled descend to chair Toilet Transfers # of Assistants: 1 Transfer Surface: Toilet Transfer Approach: To and from, Ambulating Transfer Equipment: Grab bars Level of Assistance: Supervision/set-up Assessment/Delivery: Assessed, Instructed Toilet Transfers Comments: Cueing for hand placement on grab bars rather than walker without workingbrakes. Increased time and effort required Team Communication: Patient's nurse was contacted and patient's status was discussed Inpatient AVS Complete - OT: Yes Inpatient AVS Completion Date - OT: 12/25/21 Outcome Measures [facility] Inpatient Short Form: Putting on and taking off regular lower body clothing?: A Little Putting on and taking off regular upper body clothing?: A Little Taking care of personal grooming such as brushing teeth?: None Bathing (including washing, rinsing, drying)?: A lot Toileting, which includes using toilet, bedpan, or urinal?: A Little Eating meals?: None Daily Activities Raw Score (max 24): 19 Daily Activities Standardized Score: 40.22 Interpretation: Clinicians answer the [facility] Inpatient Short Form based on observed patient activityand/or clinical judgement (ie. patient can be scored without physically performing each activity) Based on scoring guidelines using the raw score value: Those going to home had an average score at or above 18 Those going to facility had an average score at or below 17 Patient was left in bed at end of session with call light in reach, all needs met and questions answered. Assessment Discharge Therapy Needs - OT: Ongoing skilled occupational therapy Skilled therapy can include occupational therapy provided by home health, outpatient clinic, or a post-acute facility. The location of these services is determined by the patient's care team in partnership with patient/family. Level of Care Needed - OT: Assistance with toilet/shower transfers, Assistance with medication set up/administration, Assistance with showering/bathing, Assistance with dressing, Assistance with meal preparation, Assistance with transportation, Assistance with housekeeping, Assistance with shopping Recommended Adaptive Equipment - OT: Other (Comment) (ongoing) Barriers to Discharge Home: Current functional status, Fall risk, Safety concerns, Limited caregiveravailability Clinical Impression: Patient is progressing toward her OT goals. She has adequate knowledge of energy conservation techniques and verbalizes that she currently uses strategies in daily routine to improve functional performance. Patient required supervision to contact guard assistance x1 for functional transfers and moderate assistance x1 for bathing task in today's session. She is limited by her chronic pain/fatigue in addition to acute pain/fatigue following cervical spine surgery on 12/24. Patient is a great advocate for her needs and has awareness of her short and long-term limitations, however, requires gentle encouragement for participation in ADLs to progress functional performance/independence. Patient is below their functional baseline and skilled occupational therapy services remain medically necessary for this patient to progress functional independence & safety as well as assist with discharge planning. Therapy team will continue to provide graded activities to promote patient???s functional return, safety, and quality of life in line with established functional rehabilitation goals. Rehab potential: Ms. Adames has good potential to achieve established occupational therapy goals within the time frame outlined below. Functional Goals: OT Goal #1: Patient will complete total body dressing with modified independence to reduce caregiverdependence and return to prior level of function by discharge. OT Goal #1 Status: Progressing OT Goal #2: Patient will verbalize spinal precautions and demonstrate independent carry-over in self-care activities to promote safety and healing upon discharge. OT Goal #2 Status: Achieved OT Goal #3: Patient will tolerate standing at sink for grooming routine with supervision and use of platform four wheeled walker to progress standing balance and endurance during functional tasks upon discharge. OT Goal #3 Status: Slowly progressing OT Goal #4: Patient to perform toilet hygeine and transfer with modified independence to decrease caregiver assistance required upon discharge. OT Goal #4 Status: Progressing Progress: Progressing toward goals Plan Occupational Therapy Attestation Statement: Patient agrees with the plan of care and goals. OT Frequency: OT Amount: 1 visit per day OT Frequency: 5 times per week OT Inpatient Duration : Until goals are met or hospital discharge Requires Inpatient OT Follow-Up: Yes OT - Next Inpatient Appointment: 12/28/21 Plan: Continue with current plan OT Plan Comments: Next session: progress functional mobility, standing grooming task, upper body dressing Treatment interventions may include: Treatment Interventions: Therapeutic exercise, Therapeutic functional activity, Self-care/home management Billing: Time Spent with Patient Therapeutic Interventions Home Management Training (min): 26 min Time Tracking Total Timed Units (min): 26 min Total Treatment Time (min): 26 min HUNTER Stauffer Associated attestation - Adina Shukla O.T. - 12/27/2021 4:15 PM CDT This therapist has reviewed all documentation and supervised today???s session. The therapist agreeswith the plan developed in collaboration with the patient. Abdon Gill M.D. - 12/27/2021 6:32 AM CDT Orthopedic Spine Surgery Progress Note Orthopedic Service: [facility] Admission Day: 12/24/2021 SUBJECTIVE Mrs. Multani had no acute events overnight. Her pain is well controlled. She continues to improve with mobilization while working with PT, yesterday she was able to stand with assistance, and her progress with mobilization is slow. She denies nausea / vomiting overnight, and is tolerating and advancing diet. She specifically notes the return of bladder function after her surgery, which she is pleasedabout. She is passing gas but has not had a bowel movement since surgery, she said this morning she would like to try a suppository. She is pending placement at a SNF. VITALS Temperature: [36.5 ??C-36.7 ??C] 36.7 ??C Resp Rate: [17-18] 18 Blood Pressure: (144-151)/(60-66) 151/66 SpO2: [90 %-94 %] 94 % Pulse Rate: [68-73] 68 Output by Drain (mL) 12/25/21 0701 - 12/25/21 1900 12/25/21 1901 - 12/26/21 0700 12/26/21 0701 - 12/26/21 1900 12/26/21 190 - 12/27/21 0632 Patient has no LDAs of requested type attached. PHYSICAL EXAM General: Lying in bed comfortably, NAD Neuro: Motor (UE) Deltoid?? Biceps?? Triceps Wrest ext Wrist flex Wet Process Operator Fing Abd?? R?? 5 5 5 5?? 5?? 5 4 L?? 4 5 5 5?? 5?? 5 4 Sensory (UE) ?C5 (Ax)?? C6 (MC)?? C7 (Mid finger)?? C8 (MACN)?? T1 (MBCN)?? R?? nl?? nl?? nl?? nl?? nl?? L?? nl?? nl?? nl?? nl?? nl?? Motor (LE) Iliopsoas Quad Hamstrings Tib Ant EHL Gastroc-soleus R?? 5 5 5?? 5?? 5?? 5?? L?? 5 5 5?? 5?? 5?? 5? Sensory (LE) L2?? (Groin)?? L3?? (Leg)?? L4?? (Knee)?? L5 ?? (Grt Toe)?? S1 ?? (Sm toe)?? R?? nl?? nl?? nl?? nl?? nl?? L?? nl?? nl?? nl?? nl?? nl? Vascular: DP 2+ bilaterally Dressing: Gauze and tegaderm dressing CDI Drain: none IMPRESSION & REPORT #1 Status post cervical laminoplasty on 12/24, doing well PLAN - Activity: Soft collar for comfort. Okay to remove for showering. Avoid lifting >10lbs. PT consult. - Antibiotics: None - Cultures: None - Diet: Advance as tolerated to general diabetic - Drains: Removed - Wound: Gauze/tegaderm, change as needed - Imaging: Upright x-rays completed - Montaño: Discontinued - DVT Prophylaxis: SCD's and early mobilization. No chemical DVT prophylaxis given spine surgery - Pain: Multimodal, NSAIDs okay - Disposition: Anticipate discharge to SNF Active Issues # Acute blood loss anemia - monitor CBC and transfuse as needed. Comorbidities Present on Admission #1 Myelopathy Cervical (HCC) For any questions or concerns from 6 am until 6 pm, please page Javier cruz. If outside of 06:00 - 18:00 on weekdays or any time on the weekend, please contact the [facility] Orthopedic Surgery house resident aeronautical project engineer at [phone]. Barbara Dyson, R.R.T., L.R.T. - 12/26/2021 10:49 PM CDT 12/26/21 7916 BPAP/CPAP Therapy BPAP/CPAP Interface Full face mask BPAP/CPAP Interface Size Medium Patient's Own Equipment Tubing;CPAP;Equipment inspected (per site policy) Skin barrier Liquid-filled membrane Ventilator Parameters Ventilator Parameters (Select Groups) BPAP/CPAP Rows BPAP/CPAP Mode CPAP;Per Home Settings O2 Flow Rate 1 L/min NPPV EPAP (CPAP) Setting 10 cm H2O Humidification Heated humidifier Patient's home CPAP set up. Liquicell applied and hospital mask utilized due to missing piece from her home mask. Will continue to assist at night as needed. Electronically signed by: Barbara Dyson R.R.T., L.R.T. 12/26/21 10:50 PM CDT Dilshad Mendoza APRN, C.N.P., D.N.P. - 12/26/2021 1:00 PM CDT SUBJECTIVE LOS: 2 days DCS continues to follow this 66 y.o. female for diabetes admitted on 12/24/2021 for Myelopathy Cervical (HCC) PREADMISSION THERAPY: Glipizide 5 mg daily and Metformin 500 mg, 2 tablets twice daily Patient is in no acute distress. Resting in bed. Reviewed hospital insulin regimen. Reviewed dismissal plan. Nurse is present at the bedside. OBJECTIVE Blood glucose results in last 24 hours: Recent Labs 12/26/21 0750 12/26/21 0113 12/25/21 2121 12/25/21 1617 GLUCOSEPOC 245 H 221 H 218 H 238 H Yesterday, given: Lantus 15 units in the morning , NovoLog 1 unit for every 10 grams of carbohydrates consumed with meals (2-1-1 units with respective meals), and NovoLog 16 units total for the correction of hyperglycemia. Steroids: None Current Diet Adult Diet Regular starting at 12/25 1831 VITALS Temperature: 36.5 ??C Resp Rate: 17 Blood Pressure: 144/60 BP Location: Right arm;Upper SpO2: 90 % Flow Rate (L/min): 2 L/min Height: 175.3 cm Weight: 127 kg Body mass index is 41.31 kg/m??. LABORATORY Lab Results Component Value Date CREATININE 0.69 12/24/2021 Estimated Creatinine Clearance: 111.5 mL/min (by C-G formula based on SCr of 0.69 mg/dL). ASSESSMENT / PLAN #1 Diabetes mellitus, type 2, uncontrolled with hyperglycemia A1c 9% #2 Obesity INPATIENT PLAN: - Blood glucose monitoring: four times daily and 0200 - Glucose goal: 140-180 mg/dL - Basal: Lantus 20 units in the morning. Increased due to hyperglycemia. - Mealtime: NovoLog 1 unit for every 8 grams of carbohydrates consumed with meals. Increased due to hyperglycemia. - Correction scale: NovoLog moderate correction scale three times a day, modified bedtime correctionscale, and mild correction scale 0200 - DCS will evaluate and adjust insulin doses as indicated to achieve glycemic goal. ANTICIPATED DISMISSAL PLAN: Preadmission regimen with dose adjustment. Consider adding a GLP-1. Patient has a history of thyroidnodules, but no thyroid cancer or any family history of thyroid cancer. Reviewed this with our corporate learning consultant Dr. Pastor who recommends that a GLP-1 can be used in this setting. Patient unwilling to try any injections at this time. Okay with oral Rybelsus. Will continue to assess. Blood glucose frequency: daily at alternating times Goal: 100-140 mg/dL Please page DCS within 24 hours prior to hospital dismissal for final dismissal recommendations. Discussed above plan with the patient. Patient is alert and oriented and in agreement with the plan. DCS pager [phone] will continue to follow. Call primary service for diabetes concerns between [phone]. Primary service to contact DCS via hospital potato chip sacking machine operator for questions. Yanet Sanchez - 12/26/2021 9:50 AM CDT Occupational Therapy Acute Hospital Inpatient Treatment SUBJECTIVE Patient's Name: Yaz Adames Referring/Attending Provider: Wilmer Kearns M.D. Medical Diagnosis: Myelopathy Cervical (HCC) [G95.9] Reason for Referral: Occupational Therapy Evaluation and Treatment OT general acute Onset Date: 12/24/21 Payor: MEDICARE / Plan: MEDICARE A AND B / Product Type: Medicare / History of Present Illness:Patient has a past history of cervical myelopathy and is status post posterior laminoplasty (C3-7) with Dr. Kearns on 12/24/21. Family/Caregiver Present: No Patient/Caregiver Goals: Discharge to ongoing rehab prior to returning home Patient Comments: Patient lying in bed upon OT arrival listening to audiobook. She reports 8/ painand that she has received her morning pain medications. Instructed patient to engage in deep breathing for further symptom relief. Patient is agreeable to OT session. Fall Risk (65 and older) Fall in the last 12 months: Yes Did you have an injury with the fall?: (Patient reports that she does not remember falling. Her daughter told her that she has had 2 falls within the past year) Precautions Other Precautions: spinal precautions, soft cervical collar for comfort, fall risk OBJECTIVE Vitals monitored throughout session; within normal ranges. Grooming Grooming Location: Seated at sink Grooming Delivery: Facilitated, Educated, Instructed, Assessed Grooming Level of Assistance: Supervision/Set-up Grooming Comments: Facilitation of grooming routine at sink with instruction for patient to trial standing to increase activity tolerance. Patient reports that she cannot tolerate prolonged standing right now and would like to sit on her walker seat. She performs oral and facial cares seated on walkerwith set-up assistance UE Dressing UE Dressing Delivery: Assessed, Facilitated, Instructed UE Dressing Items Included: (hospital gown) UE Dressing Level of Assistance: Minimal assistance UE Dressing Location: Seated on edge of bed UE Dressing Comments: Facilitated participation in upper body dressing while seated edge of bed by [facility] gown. Patient able to thread UEs and don gown; minimal assistance x1 required forposterior clothing fastener Toileting Toileting Location: Toilet Toileting Delivery: Assessed, Educated Toileting Comments: Education on use of toilet aid for ease of posterior laure cares. Patient reportsthat she has toilet aid at home that she uses regularly ADL Comments ADL Comments: Education provided to patient on removing soft collar at least one time per day to perform skin checks to avoid breakdown. Patient acknowledged importance but would like to trial tomorrowdue to pain today Bed Mobility - Supine to Sit # of Assistants: 1 Level of Assistance: Supervision/Set-up Device: Bed rail, Head of bed elevated Cuing: Verbal, Tactile Comments: Cueing for log roll sequence with increased time and effort for patient to sit edge of bed. No physical assistance from therapist reqiured Sit to Stand Transfers # of Assistants: 1 Transfer Surface: Bed Transfer Equipment: Gait belt, Platform walker Level of Assistance: Contact guard assistance Assessment/Delivery: Assessed, Educated, Facilitated, Therapist assisted Comments: Education on safety of using walker without working breaks, emphasizing pushing up from stable transfer surface rather that pulling on walker. Cues for hand placement during transfer Stand to Sit Transfers # of Assistants: 1 Transfer Surface: Chair Transfer Equipment: Gait belt, Platform walker Level of Assistance: Contact guard assistance Assessment/Delivery: Assessed, Facilitated, Therapist assisted, Instructed Comments: Verbal and tactile cues for hand placement and slow, controlled descend to chair Toilet Transfers # of Assistants: 1 Transfer Surface: Toilet Transfer Approach: To and from, Ambulating Transfer Equipment: Grab bars Level of Assistance: Supervision/set-up Assessment/Delivery: Assessed, Instructed Toilet Transfers Comments: Cueing for hand placement on grab bars rather than walker. Increased timeand effort but no physical assistance required from therapist Team Communication: Patient's nurse was contacted and patient's status was discussed Inpatient AVS Complete - OT: Yes Inpatient AVS Completion Date - OT: 12/25/21 Outcome Measures [facility] Inpatient Short Form: Putting on and taking off regular lower body clothing?: A Little Putting on and taking off regular upper body clothing?: A Little Taking care of personal grooming such as brushing teeth?: A Little Bathing (including washing, rinsing, drying)?: A lot Toileting, which includes using toilet, bedpan, or urinal?: A Little Eating meals?: None Daily Activities Raw Score (max 24): 18 Daily Activities Standardized Score: 38.66 Interpretation: Clinicians answer the -[facility] Inpatient Short Form based on observed patient activityand/or clinical judgement (ie. patient can be scored without physically performing each activity) Based on scoring guidelines using the raw score value: Those going to home had an average score at or above 18 Those going to facility had an average score at or below 17 Patient was left in bedside chair at end of session with call light in reach, all needs met and questions answered. Assessment Discharge Therapy Needs - OT: Ongoing skilled occupational therapy Skilled therapy can include occupational therapy provided by home health, outpatient clinic, or a post-acute facility. The location of these services is determined by the patient's care team in partnership with patient/family. Level of Care Needed - OT: Assistance with toilet/shower transfers, Assistance with medication set up/administration, Assistance with showering/bathing, Assistance with dressing, Assistance with meal preparation, Assistance with transportation, Assistance with housekeeping, Assistance with shopping Recommended Adaptive Equipment - OT: Other (Comment) (ongoing) Barriers to Discharge Home: Current functional status, Fall risk, Safety concerns, Limited caregiveravailability Clinical Impression: Patient is progressing toward OT goals. She demonstrated adequate carry over of spinal precautions during session today, avoiding bending, lifting, and twisting during grooming task. Patient was unableto tolerate standing grooming routine due to increased fatigue since surgery and requested to remainseated on her walker. During task at sink, patient's drain on her posterior neck fell out and nursing staff was notified. Drain site was not bleeding and RN reported that drain was to be removed today anyway. Patient remained hemodynamically stable throughout session but requested to terminate activity after removal of her drain. Throughout session, she required supervision-contact guard assistance x1 but required increased time and effort to perform all activities due to post- surgical pain and fatigue. Patient is below their functional baseline and skilled occupational therapy services remain medically necessary for this patient to progress functional independence & safety as well as assist with discharge planning. Therapy team will continue to provide graded activities to promote patient???s functional return, safety, and quality of life in line with established functional rehabilitation goals. Rehab potential: Ms. Adames has good potential to achieve established occupational therapy goals within the time frame outlined below. Functional Goals: OT Goal #1: Patient will complete total body dressing with modified independence to reduce caregiverdependence and return to prior level of function by discharge. OT Goal #1 Status: Progressing OT Goal #2: Patient will verbalize spinal precautions and demonstrate independent carry-over in self-care activities to promote safety and healing upon discharge. OT Goal #2 Status: Achieved OT Goal #3: Patient will tolerate standing at sink for grooming routine with supervision and use of platform four wheeled walker to progress standing balance and endurance during functional tasks upon discharge. OT Goal #3 Status: Slowly progressing OT Goal #4: Patient to perform toilet hygeine and transfer with modified independence to decrease caregiver assistance required upon discharge. OT Goal #4 Status: Progressing Progress: Progressing toward goals Plan Occupational Therapy Attestation Statement: Patient agrees with the plan of care and goals. OT Frequency: OT Amount: 1 visit per day OT Frequency: 5 times per week OT Inpatient Duration : Until goals are met or hospital discharge Requires Inpatient OT Follow-Up: Yes OT - Next Inpatient Appointment: 12/27/21 Plan: Continue with current plan OT Plan Comments: Next session: progress functional mobility and standing tolerance, total body dressing (don/doff collar), standing grooming task Treatment interventions may include: Treatment Interventions: Therapeutic exercise, Therapeutic functional activity, Self-care/home management Billing: Time Spent with Patient Therapeutic Interventions Home Management Training (min): 26 min Time Tracking Total Timed Units (min): 26 min Total Treatment Time (min): 26 min HUNTER Stauffer Associated attestation - Sirena Velasco O.T. - 12/26/2021 1:28 PM CDT This therapist has reviewed all documentation and supervised today's session. This therapist agrees with the plan of care developed in collaboration with the patient. Abdon Gill M.D. - 12/26/2021 8:30 AM CDT Orthopedic Spine Surgery Progress Note Orthopedic Service: [facility] Admission Day: 12/24/2021 SUBJECTIVE Mrs. Multani had no acute events overnight. Her pain is well controlled. She continues to improve with mobilization while working with PT, and her progress with mobilization is slow. She denies nausea / vomiting overnight, and is tolerating and advancing diet. She is passing gas but has not had a bowel movement since surgery. She will likely require a SNF on dismissal. VITALS Temperature: [36.4 ??C-37.2 ??C] 36.6 ??C Resp Rate: [14-16] 16 Blood Pressure: (121-162)/(50-83) 151/73 SpO2: [89 %-100 %] 94 % Flow Rate (L/min): [2 L/min] 2 L/min Pulse Rate: [68-93] 93 Output by Drain (mL) 12/23/21 0701 - 12/23/21 1900 12/23/21 1901 - 12/24/21 0712/24/21 0701 - 12/24/21 1900 12/24/211900 - 12/25/21 0700 12/25/21 07 - 12/25/21189912/25/211900 - 12/25/211911 Closed/Suction Drain 1 Posterior Back Accordion 10 Fr. 60 5 PHYSICAL EXAM General: Lying in bed comfortably, NAD Neuro: Motor (UE) Deltoid?? Biceps?? Triceps Wrest ext Wrist flex Wet Process Operator Fing Abd?? R?? 4 5 5 5?? 5?? 5 4 L?? 4 5 5 5?? 5?? 5 4 Sensory (UE) ?C5 (Ax)?? C6 (MC)?? C7 (Mid finger)?? C8 (MACN)?? T1 (MBCN)?? R?? nl?? nl?? nl?? nl?? nl?? L?? nl?? nl?? nl?? nl?? nl?? Motor (LE) Iliopsoas Quad Hamstrings Tib Ant EHL Gastroc-soleus R?? 5 5 5?? 5?? 5?? 5?? L?? 5 5 5?? 5?? 5?? 5? Sensory (LE) L2?? (Groin)?? L3?? (Leg)?? L4?? (Knee)?? L5 ?? (Grt Toe)?? S1 ?? (Sm toe)?? R?? nl?? nl?? nl?? nl?? nl?? L?? nl?? nl?? nl?? nl?? nl? Vascular: DP 2+ bilaterally Dressing: Gauze and tegaderm dressing CDI Drain: accordion x1 IMPRESSION & REPORT #1 Status post cervical laminoplasty on 12/24, doing well PLAN - Activity: Soft collar for comfort. Okay to remove for showering. Avoid lifting >10lbs. PT consult. - Antibiotics: None - Cultures: None - Diet: Advance as tolerated to general diabetic - Drains: Remove today - Wound: Gauze/tegaderm, change as needed - Imaging: Upright x-rays must be completed prior to discharge - Montaño: Discontinued - DVT Prophylaxis: SCD's and early mobilization. No chemical DVT prophylaxis given spine surgery - Pain: Multimodal, NSAIDs okay - Disposition: Anticipate discharge to SNF Active Issues # Acute blood loss anemia - monitor CBC and transfuse as needed. Comorbidities Present on Admission #1 Myelopathy Cervical (HCC) For any questions or concerns from 6 am until 6 pm, please page Javier cruz. If outside of 06:00 - 18:00 on weekdays or any time on the weekend, please contact the [facility] Orthopedic Surgery house resident aeronautical project engineer at [phone]. Sahra Hamilton R.R.T., C.R.T., L.R.T. - 12/25/2021 10:42 PM CDT 12/25/212199 BPAP/CPAP Therapy BPAP/CPAP Interface Full face mask BPAP/CPAP Interface Size Medium Skin barrier Liquid-filled membrane $BPAP/CPAP Yes Ventilator Parameters Ventilator Parameters (Select Groups) BPAP/CPAP Rows BPAP/CPAP Mode Auto-CPAP NPPV EPAP (CPAP) Setting (5-15) Patient placed on PAP for the night. Electronically signed by: Sahra Hamilton R.R.T., C.R.T., L.R.T. 12/25/21 10:43 PM CDT Gisell Seals, Pharm.D., R.Ph. - 12/25/2021 2:30 PM CDT Images from the original note were not included. Clinical Pharmacist Progress Note Reason for admission: Yaz Adames is a 66 y.o. female admitted to [facility] on 12/24/2021 9:54 AM for cervical laminoplasty PMH: ROBINSON, CARLOS, arthritis, MDD, T2DM, eczema, fibromyalgia, HLD, HTN, IBS without diarrhea, thyroid nodule, osteoporosis Surgery Information This Encounter Past Procedures (12/25/2020 to Today) Date Procedures Providers Location 12/24/2021 LAMINOPLASTY POSTERIOR CERVICAL C3-7. Wilmer Kearns M.D.Bernatz, James T, M.D. RSTROMB OR OBJECTIVE Home medications: Held: vitamins and supplements, glipizide, ibuprofen, vitron-c, loratadine, metformin, MVI, nystatin, Xarelto Changed: none DVT/SUP: High bleed risk/current bleed / not indicated Neuro/Psych/Pain: Vitals: 12/25/21 0846 12/25/21 1131 12/25/21 1231 Pain Score: 7 6 6 Cardio/Heme: Last 8 BP readings 12/24/21 2139 12/24/21 2215 12/24/21 2300 12/24/21 2330 BP: 121/83 148/68 155/65 (!) 162/62 12/25/21 0000 12/25/21 0457 12/25/21 0729 12/25/21 1148 BP: 155/58 (!) 144/50 148/55 151/61 Results from last 7 days Lab Units 12/24/21 2041 12/24/21 1457 WBC x10(9)/L 18.5* -- VBGRS HEMOGLOBIN g/dL -- 14.1 HEMOGLOBIN g/dL 14.3 -- HEMATOCRIT % 45.5* -- MCV fL 89.4 -- PLATELETS AUTO x10(9)/L 317 -- Renal: Estimated Creatinine Clearance: 111.5 mL/min (by C-G formula based on SCr of 0.69 mg/dL). Baseline SCr ~0.6-0.7 mg/dL per record review. Dialysis - NO. Days of therapy - N/A GI: Bowel regimen ordered. Last BM CLEANING PORTER. Dietary Orders (From admission, onward) Start Ordered 12/24/211831 Adult Diet Regular (Advance Diet as Tolerated (specify starting diet)) Diet effectivenow Question: Diet texture: Answer: Regular 12/24/21183012/24/211831 Advance diet as tolerated (Advance Diet as Tolerated (specify starting diet)) Until discontinued Question: Target Diet: Answer: Regular 12/24/211830 ID: - Relevant micro results (current admission): - none Endo: Results (Up to last 50 results from the past 48 hours) 10/11 0756 12/25 0856 12/25 1145 Glucose -- -- -- Glucose, POCT, B 142 188 235 Glucose, S -- -- -- 12/25 0449 12/25 0557 12/25 0653 Glucose -- -- -- Glucose, POCT, B 131 110 135 Glucose, S -- -- -- 12/25 0147 12/25 0238 12/25 0345 Glucose -- -- -- Glucose, POCT, B 282 255 173 Glucose, S -- -- -- 12/24 2237 12/24 2345 12/25 0044 Glucose -- -- -- Glucose, POCT, B 219 215 283 Glucose, S -- -- -- 12/24 1946 12/24 2041 12/24 2142 Glucose -- -- -- Glucose, POCT, B 148 166 165 Glucose, S -- 152 -- 12/24 1633 12/24 1735 12/24 1841 Glucose -- -- -- Glucose, POCT, B 233 142 163 Glucose, S -- -- -- 12/24 1146 12/24 1416 12/24 1457 Glucose -- -- 231 Glucose, POCT, B 302 251 -- Glucose, S -- -- -- ASSESSMENT / PLAN Home Medications: Medication profile reviewed. Consider resuming Xarelto when deemed medically appropriate. Pain: Pain scores remain elevated. Consider adding topical triple cream (amitriptyline / gabapentin / ketamine), Voltaren gel and a lidocaine patch/gel today to maximize non-opioid therapies. DVT Prophylaxis: Holding DVT prophylaxis at this time given spinal surgery. Medication changes anticipated at discharge: New: likely new pain and bowel regimens Foster Seals, PharmCandyDCandy, R.Ph. Pager: [phone] Dilshad Mendoza APRN, C.N.P., D.N.P. - 12/25/2021 11:58 AM CDT SUBJECTIVE LOS: 1 day DCS continues to follow this 66 y.o. female for diabetes admitted on 12/24/2021 for Myelopathy Cervical (HCC) PREADMISSION THERAPY: Glipizide 5 mg daily and Metformin 500 mg, 2 tablets twice daily Patient is in no acute distress. Resting in bed. Reviewed hospital insulin regimen. Reviewed dismissal plan. Nurse is present at the bedside. OBJECTIVE Blood glucose results in last 24 hours: Recent Labs 12/25/21 1145 12/25/21 0856 12/25/21 0756 12/25/21 0653 12/25/21 0557 12/25/21 0449 12/25/21 0345 12/25/21 0238 12/25/21 0147 12/25/21 0044 12/24/21 2345 12/24/21 2237 12/24/21 2142 12/24/21 2041 12/24/21 1946 12/24/21 1841 12/24/21 1735 12/24/21 1633 12/24/21 1457 12/24/21 1416 GLUCOSEPOC 235 H 188 H 142 H 135 110 131 173 H 255 H 282 H 283 H 215 H 219 H 165 H 166 H 148 H 163 H142 H 233 H -- 251 H GLUCOSE -- -- -- -- -- -- -- -- -- -- -- -- -- 152 H -- -- -- -- 231 H -- Yesterday, given: NovoLog 8 units total for the correction of hyperglycemia. and Regular insulin infusion running at variable units/hr and received a total of 138.4 units. Steroids: None Current Diet Adult Diet Regular starting at 12/24 183 VITALS Temperature: 36.7 ??C Heart Rate: 73 Resp Rate: 14 Blood Pressure: 151/61 BP Location: Left arm;Upper Arterial Line BP: 155/65 SpO2: 90 % Flow Rate (L/min): 2 L/min Height: 175.3 cm Weight: 127 kg Body mass index is 41.31 kg/m??. LABORATORY Lab Results Component Value Date CREATININE 0.69 12/24/2021 Estimated Creatinine Clearance: 111.5 mL/min (by C-G formula based on SCr of 0.69 mg/dL). ASSESSMENT / PLAN #1 Diabetes mellitus, type 2, uncontrolled with hyperglycemia A1c 9% #2 Obesity INPATIENT PLAN: - Blood glucose monitoring: four times daily and 0200 - Glucose goal: 140-180 mg/dL - Basal: Lantus 15 units in the morning. - Mealtime: NovoLog 1 unit for every 10 grams of carbohydrates consumed with meals. - Correction scale: NovoLog moderate correction scale three times a day and modified bedtime correction scale - DCS will evaluate and adjust insulin doses as indicated to achieve glycemic goal. ANTICIPATED DISMISSAL PLAN: Preadmission regimen with dose adjustment. Consider adding a GLP-1. Patient has a history of thyroidnodules, but no thyroid cancer. Will consult with endocrinology if this is contraindicated. Will continue to assess. Blood glucose frequency: daily at alternating times Goal: 100-140 mg/dL Please page DCS within 24 hours prior to hospital dismissal for final dismissal recommendations. Discussed above plan with the patient. Patient is alert and oriented and in agreement with the plan. DCS pager [phone] will continue to follow. Call primary service for diabetes concerns between [phone]. Primary service to contact DCS via hospital potato chip sacking machine operator for questions. Tho Heredia M.D. - 12/25/2021 5:25 AM CDT Orthopedic Spine Surgery Progress Note Orthopedic Service: [facility] Admission Day: 12/24/2021 SUBJECTIVE Ms. Adames is doing well. No acute events noted overnight. Pain remains well controlled, just some pain in the posterior neck. No new numbness or tingling in the legs or arms. Has already beendown to x-ray this morning. VITALS Temperature: [36.2 ??C-37.1 ??C] 36.4 ??C Heart Rate: [70-78] 73 Resp Rate: [8-20] 16 Blood Pressure: (118-162)/(49-83) 144/50 Arterial Line BP: (147-155)/(58-67) 155/65 SpO2: [89 %-97 %] 90 % Flow Rate (L/min): [2 L/min-6 L/min] 2 L/min Pulse Rate: [68-80] 70 Output by Drain (mL) 12/23/21 0701 - 12/23/21 1900 12/23/21 1901 - 12/24/21 0700 12/24/21 0701 - 12/24/21 1900 12/24/21 190 - 12/25/21 0613 Closed/Suction Drain 1 Posterior Back Accordion 10 Fr. 30 PHYSICAL EXAM General: Lying in bed comfortably, NAD Neuro: Motor (UE) Deltoid?? Biceps?? Triceps Wrest ext Wrist flex Wet Process Operator Fing Abd?? R?? 4 5 4 5?? 5?? 5 4 L?? 4 5 4 5?? 5?? 5 4 Sensory (UE) ?C5 (Ax)?? C6 (MC)?? C7 (Mid finger)?? C8 (MACN)?? T1 (MBCN)?? R?? nl?? nl?? nl?? nl?? nl?? L?? nl?? nl?? nl?? nl?? nl?? Motor (LE) Iliopsoas Quad Hamstrings Tib Ant EHL Gastroc-soleus R?? 4 4 5?? 5?? 5?? 5?? L?? 4 4 5?? 5?? 5?? 5? Sensory (LE) L2?? (Groin)?? L3?? (Leg)?? L4?? (Knee)?? L5 ?? (Grt Toe)?? S1 ?? (Sm toe)?? R?? nl?? nl?? nl?? nl?? nl?? L?? nl?? nl?? nl?? nl?? nl?? Vascular: DP 2+ bilaterally Dressing: Gauze and tegaderm dressing CDI Drain: Serosanguinous, 60ml overnight LABS Lab Results Component Value Date HGB 14.3 12/24/2021 WBC 18.5 (H) 12/24/2021 PLT 317 12/24/2021 CREATININE 0.69 12/24/2021 NA 138 12/24/2021 INR 1.1 12/18/2021 Morning labs reviewed: Pending IMPRESSION & REPORT #1 Status post cervical laminoplasty on 12/24, doing well PLAN - Activity: Soft collar for comfort. Okay to remove for showering. Avoid lifting >10lbs. PT consult. - Antibiotics: Cefazolin until drain out - Cultures: None - Diet: Advance as tolerated to general diabetic - Drains: Accordion x1, remove when <30cc/shift after mobilizing - Wound: Gauze/tegaderm, change as needed - Imaging: Upright x-rays complete - Montaño: Discontinued - DVT Prophylaxis: SCD's and early mobilization. No chemical DVT prophylaxis given spine surgery - Pain: Multimodal, NSAIDs okay - Disposition: Anticipate discharge to home Active Issues # Acute blood loss anemia - monitor CBC and transfuse as needed. Comorbidities Present on Admission #1 Myelopathy Cervical (HCC) For any questions or concerns from 6 am until 6 pm, please page [place] service. If outside of 06:00 - 18:00 on weekdays or any time on the weekend, please contact the [facility] Orthopedic Surgery house resident aeronautical project engineer at [phone]. Kermit Shin R.R.T., L.R.T. - 12/24/2021 11:30 PM CDT 12/24/21 9680 Ventilator Parameters BPAP/CPAP Mode Auto-CPAP O2 Flow Rate 2 L/min EPAP (Min) 5 cm H2O EPAP (Max) 15 cm H2O Humidification Heated humidifier Pt placed on CPAP (hosp unit) for night & tolerating well. Will continue to follow & assist as needed. Electronically signed by: Kermit Shin R.R.T., LCandyRCandyT. 12/25/21 1:18 AM CDT Tho Heredia M.D. - 12/24/2021 5:28 PM CDT Orthopedic Spine Surgery Progress Note Orthopedic Service: [facility] Admission Day: 12/24/2021 SUBJECTIVE Seen in PACU. Reporting pain in posterior neck. No new pain, numbness or tingling in arms or legs. VITALS Temperature: [36.7 ??C-37.1 ??C] 36.7 ??C Heart Rate: [70-78] 72 Resp Rate: [10-20] 11 Blood Pressure: (118-143)/(49-73) 118/54 Arterial Line BP: (148-155)/(58-67) 148/60 SpO2: [90 %-97 %] 90 % Flow Rate (L/min): [3 L/min-6 L/min] 3 L/min Pulse Rate: [68-78] 72 Output by Drain (mL) 12/22/21 0701 - 12/22/21 1900 12/22/21 190 - 12/23/21 0700 12/23/21 0701 - 12/23/21 1900 12/23/21 1901 - 12/24/21 0700 12/24/21 0701 - 12/24/21 1728 Requested LDAs do not have output data documented. PHYSICAL EXAM General: Lying in bed comfortably, NAD Neuro: Motor (UE) Deltoid?? Biceps?? Triceps Wrest ext Wrist flex Wet Process Operator Fing Abd?? R?? 4 4 4 5?? 5?? 4 4 L?? 4 4 4 5?? 5?? 4 4 Sensory (UE) ?C5 (Ax)?? C6 (MC)?? C7 (Mid finger)?? C8 (MACN)?? T1 (MBCN)?? R?? nl?? nl?? nl?? nl?? nl?? L?? nl?? nl?? nl?? nl?? nl?? Motor (LE) Iliopsoas Quad Hamstrings Tib Ant EHL Gastroc-soleus R?? 4 4 5?? 5?? 5?? 5?? L?? 4 4 5?? 5?? 5?? 5? Sensory (LE) L2?? (Groin)?? L3?? (Leg)?? L4?? (Knee)?? L5 ?? (Grt Toe)?? S1 ?? (Sm toe)?? R?? nl?? nl?? nl?? nl?? nl?? L?? nl?? nl?? nl?? nl?? nl? Vascular: DP 2+ bilaterally Dressing: Gauze and tegaderm dressing CDI Drain: accordion x1 IMPRESSION & REPORT #1 Status post cervical laminoplasty on 12/24, doing well PLAN - Activity: Soft collar for comfort. Okay to remove for showering. Avoid lifting >10lbs. PT consult. - Antibiotics: Cefazolin until drain out - Cultures: None - Diet: Advance as tolerated to general diabetic - Drains: Accordion x1, remove when <30cc/shift after mobilizing - Wound: Gauze/tegaderm, change as needed - Imaging: Upright x-rays must be completed prior to discharge - Montaño: Discontinued - DVT Prophylaxis: SCD's and early mobilization. No chemical DVT prophylaxis given spine surgery - Pain: Multimodal, NSAIDs okay - Disposition: Anticipate discharge to home Active Issues # Acute blood loss anemia - monitor CBC and transfuse as needed. Comorbidities Present on Admission #1 Myelopathy Cervical (HCC) For any questions or concerns from 6 am until 6 pm, please page Javier cruz. If outside of 06:00 - 18:00 on weekdays or any time on the weekend, please contact the [facility] Orthopedic Surgery house resident aeronautical project engineer at [phone]. Brodie Calderón PharmCandyDCandy, R.Ph. - 12/24/2021 10:49 AM CDT Images from the original note were not included. Admission Medication History Note Adherence issues: No concerns Medication list source: Patient Prior to Admission Medications Med List Status: Pharmacy/RN Complete Set By: Jewels Leslie, RCandyN. at 12/24/2021 10:19 AM Last Dose Start Date End Date alpha lipoic acid 600 mg capsule 12/23/2021 -- -- Take 600 mg by mouth at bedtime. amoxicillin (AMOXIL) 500 mg capsule Unknown -- -- Take 2,000 mg by mouth as directed. co-enzyme Q-10 (CO Q-10) 100 mg capsule Past Week 04/26/09 -- Take 1 capsule by mouth daily. cranberry 400 mg capsule Past Week 10/01/18 -- Take 400 mg by mouth daily. fluticasone propionate (FLOVENT HFA) 110 mcg/actuation inhaler 12/23/2021 09/30/20 -- Inhale 1 puff 2 (two) times a day. FSH/FLX/PRIM/CUR/BOR/OM3,6,9 5 (OMEGA 3-6-9 FATTY ACIDS ORAL) Past Month 05/01/16 -- Take 1 capsule by mouth daily. ginkgo biloba 40 mg tablet Past Week -- -- Take 120 mg by mouth daily. glipiZIDE (GLUCOTROL XL) 5 mg 24 hr tablet 12/23/2021 09/03/21 -- Take 5 mg by mouth daily. hydroCHLOROthiazide (for_HYDRODIURIL) 25 mg tablet 12/24/2021 12/09/16 -- Take 25 mg by mouth daily. ibuprofen (ADVIL,MOTRIN) 800 mg tablet Past Week 11/17/18 -- Take 800 mg by mouth every 6 (six) hours as needed. IRON,CARBONYL/ASCORBIC ACID (VITRON-C ORAL) Past Week 07/20/15 -- Take 1 tablet by mouth 2 (two) times a day. loratadine (for_CLARITIN) 10 mg tablet Past Week 10/09/09 -- Take 1 tablet by mouth daily. metFORMIN (for_GLUCOPHAGE) 500 mg tablet 12/23/2021 01/22/17 -- Take 1,000 mg by mouth 2 (two) times a day with meals. multivitamin tablet Past Week 04/25/11 -- Take 1 tablet by mouth daily. nystatin (for_MYCOSTATIN) 100,000 unit/gram cream -- 10/30/16 -- Apply 1 application topically 2 (two) times a day as needed. oxyCODONE-acetaminophen (PERCOCET) 5-325 mg per tablet 12/23/2021 06/04/20 -- Take 1-2 tablets by mouth 3 (three) times a day as needed. pramipexole (MIRAPEX) 0.125 mg tablet 12/23/2021 08/29/15 -- Take 2-3 tablets by mouth 2 (two) times a day. 2 tabs in the afternoon, 3 tabs at bedtime pregabalin (LYRICA) 150 mg capsule 12/24/2021 03/31/17 -- Take 1 capsule (150 mg total) by mouth 2 (two) times a day. Patient taking differently: Take 100-150 mg by mouth 3 (three) times a day. 150 MG IN AM, 100 MG INAFTERNOON, AND 150 MG IN PM. traZODone (DESYREL) 100 mg tablet 12/23/2021 02/17/20 -- Take 100 mg by mouth daily. Taking 2 tablets at bedtime turmeric root extract 500 mg capsule Past Week -- -- Take by mouth daily. valACYclovir (VALTREX) 500 mg tablet Unknown 06/22/20 -- venlafaxine XR (EFFEXOR XR) 150 mg 24 hr capsule 12/24/2021 03/19/16 -- Take 1 capsule by mouth daily. With 75 mg capsule = 225 mg total dose venlafaxine XR (EFFEXOR-XR) 75 mg 24 hr capsule 12/24/2021 05/25/20 -- Take 75 mg by mouth daily. Take with 150 mg = 225 mg total daily. VOLTAREN 1 % gel -- 12/05/16 -- Apply 4 g topically 4 (four) times a day as needed. Xarelto 10 mg tablet 12/19/2021 10/22/21 -- Take 10 mg by mouth daily. documented in this encounter Consult Notes Katia Marinelli L.G.S.WCandy, M.S.W. - 12/26/2021 12:44 PM CDT SUBJECTIVE DEMOGRAPHIC INFORMATION Referral Source: Service/Provider Referral Reason: Discharge Planning Person(s) present during interview: Patient and daughterLia Previous Psychosocial Assessment : Yes, Date: 12/04/21, completed by Дмитрий Blount, M.S.W. . Patient denies any changes since psychosocial was completed. SW met with patient to provide support and discharge planning. Patient was joined by daughter, Lia. Patient had previously selected SNF referrals to place anticipating she would need rehab before returning home. Patient denied any coping concerns or other needs at this time. Lia had questions regarding transportation and how quickly they might have an acceptance. SW addressed and answered allquestions. OBJECTIVE Patient remains hospitalized on [facility] [id number] A list of correction facility options (that they geographically reside or requested) has been provided to and reviewed with patient and daughter Lia . Disclaimers: Financial disclosure provided informing patient of our ownership and financial relationship of the [facility] beds, home health, and hospice agencies. Reviewed Medicare coverage and provided a list of options. Destination - Admitted Since 12/24/2021 Service Provider Request Status Selected Services Address Phone Fax Patient Preferred [facility] Pending - Request Sent N/A [address] [place] [facility] [id number] [phone] -- [facility] Pending - Request Sent N/A [address] [facility] [address] [phone] -- [facility] Pending - Request Sent N/A [address] [facility] [id number] -- ASSESSMENT / PLAN ASSESSMENT Patient is a 66 year old female admitted on 12/24/21. Patient appears alert, oriented x3, engaging, and open to social work support. She appears to be their own decision maker and reliable historian atthis time. Patient presented with Calm mood, speech is within normal limits for volume, rate, and tone, and organized thinking. She did not appear to be in distress and is overall coping okay at this time. Patient and daughter have insight into her needs and is planning appropriately for dismissal at this time. PLAN Patient to discharge to facility when placement is found SW available for supportive visits and discharge planning Avery Guaman, M.S.W. 12/26/21 Grace Quezada P.T., D.P.T. - 12/25/2021 1:47 PM CDT Physical Therapy Inpatient Evaluation/Treatment SUBJECTIVE Patient's Name: Yaz Adames Referring/Attending Provider: Wilmer Kearns M.D. 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 Depression Major Recurrent Partial Remission (HCC) Diabetes Mellitus Type 2 (HCC) Diabetes Mellitus Type 2 With Diabetic Neuropathy (HCC) Tendonitis Achilles Right Constipation Prolapse Vaginal Arthroplasty Total Knee Replacement Status Post Bilateral Fasciitis Plantar Bursitis Osteoarthritis Hypertension Essential Primary Restless Leg Syndrome Nodule Thyroid Eczema Pain Neuropathic Myelopathy Cervical (HCC) Embolus Pulmonary Personal History Anticoagulant Therapy Scoliosis Body Mass Index 40.0 To 44.9 Adult (HCC) Obstructive Sleep Apnea Adult Smoking Tobacco Use Personal History Past Surgical History: Procedure Laterality Date APPENDECTOMY 1966 CORONARY STENT PLACEMENT JOINT REPLACEMENT 2004, 2013 LAMINOPLASTY POSTERIOR CERVICAL N/A 12/24/2021 Procedure: LAMINOPLASTY POSTERIOR CERVICAL C3-7.; Surgeon: Wilmer Kearns M.D.; Location: [facility] ROMB OR OTHER CONVERTED SHX (SEE COMMENT) N/A 03/22/1997 >Compound F injection, bilateral knees OTHER CONVERTED SHX (SEE COMMENT) N/A 12/18/2011 >Right total knee arthroplasty. OTHER CONVERTED SHX (SEE COMMENT) N/A 11/09/2013 >1. Fluoroscopically guided radiofrequency denervation of the right L2-3, L3-4 facet joints. OTHER CONVERTED SHX (SEE COMMENT) N/A 11/19/2012 >1. Fluoroscopically guided radiofrequency denervation of the right L2-3 and L3-4 facet joints. OTHER CONVERTED SHX (SEE COMMENT) N/A 11/28/2011 >Fluoroscopically-guided medial branch nerve/dorsal ramus blocks of the bilateral L2-3 and L3-4 facet OTHER CONVERTED SHX (SEE COMMENT) N/A 12/05/2011 >1. Fluoroscopically-guided radiofrequency denervation of the left L2-3, L3-4 facet joints. OTHER CONVERTED SHX (SEE COMMENT) N/A 12/04/2011 >1. Fluoroscopically guided radiofrequency denervation of the right L2-3, 3-4 facet joints. OTHER CONVERTED SHX (SEE COMMENT) N/A 12/02/2011 >Fluoroscopically-guided medial branch nerve/dorsal ramus blocks of the L2-3, L3-4 bilateral facet joints OTHER CONVERTED SHX (SEE COMMENT) N/A 11/18/2013 >1. Fluoroscopically guided radiofrequency denervation of the left L2-3, L3-4 facet joint(s). OTHER CONVERTED SHX (SEE COMMENT) N/A 11/20/2012 >1. Fluoroscopically guided radiofrequency denervation of the left L2-3, L3-4 facet joint(s). SINUS SURGERY 2019 SPINE SURGERY 2015 TONSILLECTOMY 1964 History of Present Illness: Patient has a past history of cervical myelopathy and is status post posterior laminoplasty (C3-7) with Dr. Kearns on 12/24/21. Prior Function/Occupational Profile Dominant Hand: Right Lives With: Alone (Daughter lives nearby) Receives Help From: Family, Friend(s), pool attendant (Daughter stops by for 2 hours 5x/week; [employer] helps with bathing 2x/week) ADL Assistance: Required assistance ADL Assistance Comments: Performs dressing and grooming tasks without assistance. Requires assistance for showers IADL/Homemaking Assistance: Required assistance IADL/Homemaking Assistance Comments: Daughter assists with cleaning, cooking, home management. Friend assists with medication management Driving: Does not drive Occupational Role: Retired Leisure Interests: Engages in seated exercise program daily Prior Mobility/Functional Transfers Level of Lipscomb: Modified independent Gait Devices/Wheelchair Used: Other (Comment) Gait Devices/Wheelchair Used Comments: Uses platform four wheeled walker(up walker) Home Equipment Gait Devices Owned: Other (Comment) (Platform four wheel walker) Wheelchair : Manual Bathroom Equipment: Grab bars in shower, Built-in shower seat, Hand-held shower head, Grab bars around toilet Home Living Type of Home: House Home Layout: Two level, Able to live on main level with bedroom/bathroom, Bedroom on main level, Full bath main level Home Access: Ramped entrance Bathroom Shower/Tub: Walk-in shower Walk-in shower location: Main floor Walk-in shower enclosure type: Sliding/glass door Bathroom Toilet: Comfort height Bathroom Accessibility: Yes How Accessible: Accessible via walker Home Living Comments: Sleeps in adjustable bed Dominant Hand: Right Family/Caregiver Present: No Patient/Caregiver Goals: none stated Patient Comments: Pt found semi-reclined in bed. Pt reporting 6/10 neck/back pain with pt reporting she recently recieved pains and RNs notified of pain level. Pt agreeable to PT session. Precautions Other Precautions: spinal precautions, soft cervical collar for comfort, fall risk Fall Risk (65 and older) Fall in the last 12 months: Yes Did you have an injury with the fall?: (Patient reports that she does not remember falling. Her daughter told her that she has had 2 falls within the past year) Are you fearful of falling?: No OBJECTIVE Vitals monitored throughout session; within normal ranges. Cognition Arousal/Alertness: Appropriate responses to stimuli Attention: Addressed, no concerns noted Orientation: Oriented X4 Following Commands: Two Step Commands Safety/Judgment: Addressed, no concerns noted General ROM / Strength Screening ROM - Lower Extremity Screen: Addressed, no concerns noted Strength - Lower Extremity Screen: Impaired right & left Strength - Lower Extremity Screen Comments: Generalized LE weakness Bed Mobility - Supine to Sit # of Assistants: 1 Level of Assistance: Minimal assistance Device: Bed rail, Head of bed elevated Cuing: Verbal, Tactile Comments: verbal and tactile cues for log roll sequencing with pt requiring min assist for LE management Bed Mobility - Sit to Supine # of Assistants: 1 Level of Assistance: Minimal assistance Device: Bed rail, Head of bed elevated Cuing: Verbal, Tactile Sit to Stand Transfers # of Assistants: 1 Transfer Surface: Bed, Chair, Toilet/Commode Transfer Equipment: Gait belt, Platform walker Level of Assistance: Minimal assistance Assessment/Delivery: Assessed, Facilitated, Therapist assisted, Instructed Comments: verbal and tactile cues for hand placement and eccentric control Stand to Sit Transfers # of Assistants: 1 Transfer Surface: Bed, Toilet/Commode, Chair Transfer Equipment: Gait belt, Platform walker Level of Assistance: Contact guard assistance, Minimal assistance Assessment/Delivery: Assessed, Facilitated, Therapist assisted, Instructed Comments: verbal and tactile cues for hand placement and eccentric control Gait Assessment/Training Distance (m): 6 m (x2 with seated rest on toilet between bouts of gait) Surface: Even, Smooth/hard Device: Gait belt, Platform walker # of Assistants: 1 Level of Assistance: Contact guard assistance Stability: no overt loss of balance noted Assessment of Gait: decreased gait speed, forward trunk flexion, varying step length Cueing Provided: Verbal, Tactile Training/Intervention: verbal and tactile cues for posture and safety Response: no adverse symptoms noted or reported by pt Seated Exercises Seated Exercise - Side Addressed: Bilateral Sitting Surface: Chair Seated Exercise: Ankle pumps Exercise Mode: Active motion against gravity Sets/Repetitions: 1x5 reps with verbal cues for sequencing The following coordination of care occurred today: Discussed with RN pt's performance during sessionand positioning at end of session Patient's nurse was contacted and patient's status was discussed, Discussed patient's care with OT Inpatient AVS Complete - PT: No Patient was left in bedside chair at end of session with call light in reach, all needs met and questions answered. Outcome Measures [facility] Inpatient Short Form: -[facility] Basic Mobility (V.2) How much help from another person do you currently need???If the patient hasn't done an activity recently, how much help from another person do you think he/she would need if he/she tried? 1. Turning from your back to your side while in a flat bed without using bedrails?: A Little 2. Moving from lying on your back to sitting on the side of a flat bed without using bedrails?: A Lot 3. Moving to and from a bed to a chair (including a wheelchair)?: A Little 4. Standing up from a chair using your arms (e.g., wheelchair, or bedside chair)?: A Little 5. To walk in hospital room?: A Little 6. Climbing 3-5 steps with a railing?: Total -[facility] Basic Mobility (V.2) Raw Score: 15 -[facility] Basic Mobility (V.2) Standardized Score: 36.97 Interpretation: Clinicians answer the [facility] Inpatient Short Form based on observed patient activityand/or clinical judgement (ie. patient can be scored without physically performing each activity) Based on scoring guidelines using the raw score value: Those going to home had an average score at or above 18 Those going to facility had an average score at or below 17 Assessment Discharge Therapy Needs - PT: Ongoing skilled physical therapy Skilled therapy can include physical therapy provided by home health, outpatient clinic, or a post-acute facility. The location of these services is determined by the patient's care team in partnershipwith patient/family. Level of Care Needed - PT: Assistance with transfers (Comment), Assistance with walking and moving around the home, Assistance with bed mobility, Assistance with stairs, Physical assistance needed Barriers to Discharge Home: Current functional status, Fall risk, Safety concerns, Limited caregiveravailability Clinical Impression of today's session: Pt continues to present below baseline. Pt demonstrating impairments in gait, strength, endurance, balance, pain control, and functional transfers. Pt limited this session due to pain and fatigue. Pt requiring min assist-CGA for upright mobility this session. Pt would continue to benefit from skilled acute PT to address deficits. Rehab potential: Ms. Adames has Good potential to achieve established physical therapy goals within the time frame outlined below. Tiered PT Evaluation Codes: Comorbid Conditions: Arthritis, Mental health disorder, Diabetes Personal Factors: Body habitus, History of falls, Living situation, Needs assistive device, Sedentary lifestyle, Age Examination elements: 3 Clinical Presentation: Evolving Clinical Decision Making: Moderate complexity clinical decision making Functional Goals: PT Inpatient Goals PT Goal #1: Pt will transfer supine<>sit independently in order to decrease burden of care PT Goal #2: Pt will transfer sit<>stand mod I with least restrictive assistive device in orderto increase functional independence PT Goal #3: Pt will ambulate 30m mod I with least restrictive assistive device in order to improve functional mobility Plan Patient agrees with the plan of care and goals. Treatment Plan: Plan: Plan of care initiated PT Frequency: 5 times per week PT Inpatient Duration : Until goals are met or hospital discharge Requires Inpatient Follow-Up: Yes PT - Next Inpatient Appointment: 12/26/21 PT Plan Comments: progress bed mobility, transfers, gait training andLE strengthening exercises as pt able Treatment interventions may include: Treatment/Interventions: Therapeutic exercise, Therapeutic functional activity, Neuromuscular re-education, Gait training, Self-care/home management Billing: Time Spent with Patient Evaluations PT Eval - Mod Complexity: 10 min Therapeutic Interventions Gait Training (min): 6 min Therapeutic Activity (min): 8 min Time Tracking Total Timed Units (min): 14 min Total Treatment Time (min): 24 min Grace Quezada P.T., D.P.T. Yanet Sanchez - 12/25/2021 11:29 AM CDT Occupational Therapy Acute Hospital Inpatient Evaluation/Treatment SUBJECTIVE Patient's Name: Yaz Adames Referring/Attending Provider: Wilmer Kearns M.D. 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) Diabetes Mellitus Type 2 (HCC) Diabetes Mellitus Type 2 With Diabetic Neuropathy ([facility]) Tendonitis Achilles Right Constipation Prolapse Vaginal Arthroplasty Total Knee Replacement Status Post Bilateral Fasciitis Plantar Bursitis Osteoarthritis Hypertension Essential Primary Restless Leg Syndrome Nodule Thyroid Eczema Pain Neuropathic Myelopathy Cervical ([facility]) Embolus Pulmonary Personal History Anticoagulant Therapy Scoliosis Body Mass Index 40.0 To 44.9 Adult ([facility]) Obstructive Sleep Apnea Adult Smoking Tobacco Use Personal History Past Surgical History: Procedure Laterality Date APPENDECTOMY 1965 CORONARY STENT PLACEMENT JOINT REPLACEMENT 2004, 2013 LAMINOPLASTY POSTERIOR CERVICAL N/A 12/24/2021 Procedure: LAMINOPLASTY POSTERIOR CERVICAL C3-7.; Surgeon: Wilmer Kearns M.D.; Location: [facility] ROMB OR OTHER CONVERTED SHX (SEE COMMENT) N/A 03/22/1997 >Compound F injection, bilateral knees OTHER CONVERTED SHX (SEE COMMENT) N/A 12/18/2011 >Right total knee arthroplasty. OTHER CONVERTED SHX (SEE COMMENT) N/A 11/09/2013 >1. Fluoroscopically guided radiofrequency denervation of the right L2-3, L3-4 facet joints. OTHER CONVERTED SHX (SEE COMMENT) N/A 11/19/2012 >1. Fluoroscopically guided radiofrequency denervation of the right L2-3 and L3-4 facet joints. OTHER CONVERTED SHX (SEE COMMENT) N/A 11/28/2011 >Fluoroscopically-guided medial branch nerve/dorsal ramus blocks of the bilateral L2-3 and L3-4 facet OTHER CONVERTED SHX (SEE COMMENT) N/A 12/05/2011 >1. Fluoroscopically-guided radiofrequency denervation of the left L2-3, L3-4 facet joints. OTHER CONVERTED SHX (SEE COMMENT) N/A 12/04/2011 >1. Fluoroscopically guided radiofrequency denervation of the right L2-3, 3-4 facet joints. OTHER CONVERTED SHX (SEE COMMENT) N/A 12/02/2011 >Fluoroscopically-guided medial branch nerve/dorsal ramus blocks of the L2-3, L3-4 bilateral facet joints OTHER CONVERTED SHX (SEE COMMENT) N/A 11/18/2013 >1. Fluoroscopically guided radiofrequency denervation of the left L2-3, L3-4 facet joint(s). OTHER CONVERTED SHX (SEE COMMENT) N/A 11/20/2012 >1. Fluoroscopically guided radiofrequency denervation of the left L2-3, L3-4 facet joint(s). SINUS SURGERY 2019 SPINE SURGERY 2015 TONSILLECTOMY 1964 History of Present Illness:Patient has a past history of cervical myelopathy and is status post posterior laminoplasty (C3-7) with Dr. Kearns on 12/24/21. Occupational Profile: Prior Function/Occupational Profile Dominant Hand: Right Lives With: Alone (Daughter lives nearby) Receives Help From: Family, Friend(s) (Daughter stops by for 2 hours 5x/week) ADL Assistance: Required assistance ADL Assistance Comments: Performs dressing and grooming tasks without assistance. Requires assistance for showers IADL/Homemaking Assistance: Required assistance IADL/Homemaking Assistance Comments: Daughter assists with cleaning, cooking, home management. Friend assists with medication management Driving: Does not drive Occupational Role: Retired Leisure Interests: Engages in seated exercise program daily Prior Mobility/Functional Transfers Level of Lipscomb: Modified independent Gait Devices/Wheelchair Used: Other (Comment) Gait Devices/Wheelchair Used Comments: Uses platform four wheeled walker Home Living Type of Home: House Home Layout: Two level, Able to live on main level with bedroom/bathroom, Bedroom on main level, Full bath main level Home Access: Ramped entrance Bathroom Shower/Tub: Walk-in shower Walk-in shower location: Main floor Walk-in shower enclosure type: Sliding/glass door Bathroom Toilet: Standard Bathroom Accessibility: Yes How Accessible: Accessible via walker Home Living Comments: Sleeps in adjustable bed Home Equipment Gait Devices Owned: Other (Comment) (Platform four wheel walker) Bathroom Equipment: Grab bars in shower, Built-in shower seat, Hand-held shower head, Grab bars around toilet Family/Caregiver Present: No Patient/Caregiver Goals: Discharge to ongoing rehab prior to returning home Patient Comments: Patient requesting to use the bathroom upon OT arrival. She reports 7/10 pain in her neck; nursing staff is aware and patient is up to date on pain medications. Patient is agreeable to participate in OT session. Fall Risk (65 and older) Fall in the last 12 months: Yes Did you have an injury with the fall?: (Patient reports that she does not remember falling. Her daughter told her that she has had 2 falls within the past year) Precautions Other Precautions: spinal precautions, soft cervical collar, fall risk OBJECTIVE Vitals not formally assessed during session. No concerns during chart review and the patient had no signs or symptoms consistent with vital changes during therapy session. Vision/Sensation Basic Assessment Current Hearing Function: Hearing intact Activity Tolerance Endurance: Tolerates 10-20 minutes of activity, Requires rest breaks Gross Hand Function Right Hand Gross Grasp: Functional Left Hand Gross Grasp: Functional Right Hand Coordination: Functional Left Hand Coordination: Functional Coordination Overall Coordination: Movements are fluid and coordinated Balance Static Sitting-Balance: Good (Maintains balance without support) Dynamic Sitting-Balance: Fair (Maintains balance with handheld/contact guard assistance) Static Standing-Balance: Fair (Maintains balance with handheld/contact guard assistance) Dynamic Standing-Balance: Poor (Requires assistance to maintain balance) General ROM / Strength Screening ROM - Upper Extremity Screen: Addressed, no concerns noted ROM - Upper Extremity Screen Comments: Functional UE ROM demonstrated to perform activities in session. ROM - Lower Extremity Screen: Addressed, no concerns noted ROM - Lower Extremity Screen Comments: Functional LE ROM demonstrated to perform activities in session. Strength - Upper Extremity Screen: Impaired right & left Strength - Upper Extremity Screen Comments: Generalized UE weakness Strength - Lower Extremity Screen: Impaired right & left Strength - Lower Extremity Screen Comments: Generalized LE weakness Cognition Cognitive assessment method: Therapist observations Arousal/Alertness: Appropriate responses to stimuli Initiation: Slow/delayed initiation Orientation: Oriented X4 Following Commands: Multistep Commands Multistep Commands: Follows multistep commands consistently Memory: Impairments noted Safety/Judgment: Addressed, no concerns noted Cognition Comments: Patient reports that her daughter says that she has fallen in the last year, however, patient does not recall. Unclear whether this is due to memory or injuries/extent of fall. Willcontinue to follow cognition in OT sessions. Bed Mobility - Sit to Supine # of Assistants: 1 Level of Assistance: Minimal assistance Device: Bed rail, Head of bed elevated Cuing: Verbal, Tactile Comments: Minimal assistance x1 required for transitioning legs into bed. Patient able to assist with positioning body higher in bed with increased time and effort Sit to Stand Transfers # of Assistants: 1 Transfer Surface: Bed Transfer Equipment: Gait belt, Platform walker (Four wheeled) Level of Assistance: Minimal assistance Assessment/Delivery: Assessed, Facilitated, Therapist assisted, Instructed Comments: Cueing for hand placement and safety throughout transfer Stand to Sit Transfers # of Assistants: 1 Transfer Surface: Bed Transfer Equipment: Gait belt, Platform walker (Four wheeled) Level of Assistance: Contact guard assistance Assessment/Delivery: Assessed, Facilitated, Therapist assisted, Instructed Comments: Cueing for hand placement to facilitate safe transfer. Instructed patient to breath through exertion, as she demonstrated tendency to hold her breath with activity Toilet Transfers # of Assistants: 1 Transfer Surface: Toilet Transfer Approach: To and from, Ambulating Transfer Equipment: Grab bars Level of Assistance: Contact guard assistance Assessment/Delivery: Assessed, Facilitated, Therapist assisted Toilet Transfers Comments: Cueing for hand placement and use of grab bars for safety, with patient report of utilizing grab bars at home. Increased time and effort required to complete transfer due to patient reported fatigue Grooming Grooming Location: Seated at sink Grooming Delivery: Assessed, Facilitated, Therapist assisted, Educated Grooming Level of Assistance: Minimal assistance Grooming Comments: Facilitation of grooming routine at sink, with patient requesting to sit on her walker for support due to fatigue. Assistance required for opening tooth paste tube due to weakness; patient able to perform oral and facial cares with set-up of materials. LE Dressing LE Dressing Location: Seated on edge of bed LE Dressing Delivery: Assessed, Facilitated, Educated LE Dressing Items Included: Socks LE Dressing Level of Assistance: Supervision/Set-up LE Dressing Comments: Education on figure four method to doff socks with adherence to spinal precautions prior to returning to bed. Patient reports that this is how she normally dons/doffs socks and pants. She is able to complete with increased time and effort; supervision required for safety while seated edge of bed. Toileting Toileting Location: Toilet Toileting Delivery: Assessed, Educated Toileting Level of Assistance: Modified independent Toileting Comments: Assessed patient participation in posterior laure cares. Patient able to perform without physical assistance or cueing. Education provided to patient on performing task without twisting for adherence to precautions and for comfort during movement Team Communication: Patient's nurse was contacted and patient's status was discussed, Discussed patient's care with PT Inpatient AVS Complete - OT: Yes Inpatient AVS Completion Date - OT: 12/25/21 Outcome Measures [facility] Inpatient Short Form: Putting on and taking off regular lower body clothing?: A Little Putting on and taking off regular upper body clothing?: A Little Taking care of personal grooming such as brushing teeth?: A Little Bathing (including washing, rinsing, drying)?: A lot Toileting, which includes using toilet, bedpan, or urinal?: A Little Eating meals?: None Daily Activities Raw Score (max 24): 18 Daily Activities Standardized Score: 38.66 Interpretation: Clinicians answer the [facility] Inpatient Short Form based on observed patient activityand/or clinical judgement (ie. patient can be scored without physically performing each activity) Based on scoring guidelines using the raw score value: Those going to home had an average score at or above 18 Those going to facility had an average score at or below 17 Patient was left in bed at end of session with call light in reach, all needs met and questions answered. Assessment Discharge Therapy Needs - OT: Ongoing skilled occupational therapy Skilled therapy can include occupational therapy provided by home health, outpatient clinic, or a post-acute facility. The location of these services is determined by the patient's care team in partnership with patient/family. Level of Care Needed - OT: Assistance with toilet/shower transfers, Assistance with medication set up/administration, Assistance with showering/bathing, Assistance with dressing, Assistance with meal preparation, Assistance with transportation, Assistance with housekeeping, Assistance with shopping Recommended Adaptive Equipment - OT: Other (Comment) (ongoing) Barriers to Discharge Home: Current functional status, Fall risk, Safety concerns, Limited caregiveravailability Clinical Impression: Mrs. Frias is a 66 year-old female who presents status post posterior cervical laminectomy (C3-7) with Dr. Kearns on 12/24/21. She lives alone in a two-story house with the ability to live on the main floor; house has a ramped entrance. She has an accessible bathroom with a walk-in shower, built-in shower bench, and grab bars. At baseline, patient receives assistance from her daughter who lives nearby for IADLs such as cooking, cleaning, laundry, and home management. She orders her groceries via delivery service and has a friend with a nursing background to assist with medication management. Patient uses a four wheeled platform walker for functional mobility and is independent with most ADLs except for receiving assistance with bathing. Currently, patient presents with impairments including new spinal precautions, post-surgical neck pain, increased fatigue, decreased activity tolerance, and generalized weakness resulting in the following functional deficits: decreased occupational performance with self-cares and functional mobility/transfers. She plans to pursue ongoing rehab after discharge from the hospital, which is a safe, reasonable plan considering her current functional limitations. Patient is below their functional baseline and skilled occupational therapy services remain medically necessary for this patient to progress functional independence & safety as well as assist with discharge planning. Therapy team will continue to provide graded activities to promote patient???s functional return, safety, and quality of life in line with established functional rehabilitation goals. Rehab potential: Ms. Adames has good potential to achieve established occupational therapy goals within the time frame outlined below. Tiered OT Evaluation Codes: Personal Factors: Body habitus, History of falls, Living situation, Needs assistive device, Sedentary lifestyle Occupational Profile and History review: Expanded Performance Deficits: 3 - 5 performance deficits Evaluation Complexity: Moderate Functional Goals: OT Goal #1: Patient will complete total body dressing with modified independence to reduce caregiverdependence and return to prior level of function by discharge. OT Goal #1 Status: Progressing OT Goal #2: Patient will verbalize spinal precautions and demonstrate independent carry-over in self-care activities to promote safety and healing upon discharge. OT Goal #2 Status: Progressing OT Goal #3: Patient will tolerate standing at sink for grooming routine with supervision and use of platform four wheeled walker to progress standing balance and endurance during functional tasks upon discharge. OT Goal #3 Status: Slowly progressing OT Goal #4: Patient to perform toilet hygeine and transfer with modified independence to decrease caregiver assistance required upon discharge. OT Goal #4 Status: Progressing Progress: Progressing toward goals Plan Occupational Therapy Attestation Statement: Patient agrees with the plan of care and goals. OT Frequency: OT Amount: 1 visit per day OT Frequency: 5 times per week OT Inpatient Duration : Until goals are met or hospital discharge Requires Inpatient OT Follow-Up: Yes OT - Next Inpatient Appointment: 12/26/21 Plan: Plan of care initiated OT Plan Comments: Next session: review spinal precautions, total body dressing, standing grooming task Treatment interventions may include: Treatment Interventions: Therapeutic exercise, Therapeutic functional activity, Self-care/home management Billing: Time Spent with Patient Evaluations OT Eval - Mod Complexity: 14 min Therapeutic Interventions Home Management Training (min): 16 min Time Tracking Total Timed Units (min): 16 min Total Treatment Time (min): 30 min HUNTER Stauffer Associated attestation - Adina Shukla O.T. - 12/25/2021 3:56 PM CDT This therapist has reviewed all documentation and supervised today???s session. The therapist agreeswith the plan developed in collaboration with the patient. Ashley Crowder R.N. - 12/25/2021 11:11 AM CDTAssociated Order(s): IP CONSULT TO CARE MANAGEMENT; IP CONSULT TO CARE MANAGEMENT Discharge Planning Assessment SUBJECTIVE Assessment Information Referral Source: Early Screen for Discharge Planning Previous assessment done on: 12/04/21 Previous assessment done by: Adrianne Camp L.I.C.SCandyWCandy, M.S.W. Primary Language: Pashto Person(s) present during interview: Person(s) Present During Interview: patient History of Present Illness #1 Myelopathy Cervical (HCC) Social History Support System: children Patient's Home Environment: two/multiple story house Finance/Insurance Primary insurance: MEDICARE A AND B Secondary insurance: [employer] Does the patient have any financial concerns? no benefits: No Advance Directives Legal Decision Maker: Self Advance Directives: Power of Bobbin Drier for health care Advance Directives Status: Not Activated OBJECTIVE Baseline Functional Status Baseline Activities of Daily Living Mobility: Independent Dressing: Independent Feeding: Independent Bathing: Needs assistance Grooming: Independent Toileting: Independent Behavior: Calm, Pleasant, Other (comment) (fatigued) Communication: Talks, Understands speaking, Understands Pashto Shopping: Dependent Transportation: Support from family Medication Management: Independent Housekeeping: Dependent Meal Prep: Needs assistance Managing Finances: Independent Assistive Devices: Eyeglasses, Walker - four wheeled, Wheelchair - manual, Dentures Baseline Services/Resources Primary care clinic and provider: Anoop Emery from [facility] in [place] [phone] Additional Resources: NA Anticipated Needs Functional Status: Bathing, Mobility, Meal preparation, Housekeeping, Shopping, Transportation use (drive car, use taxi/bus) Anticipated Modifications to the Patient's Home: None Transportation Needs: Support from family Does the patient need discharge transport arranged?: No Ride and Caregiver Arranged: Yes Ride Caregiver Provider: Lia Moscoso Phone Number for Ride/Caregiver: [phone] Anticipated Discharge Destination: [facility] ASSESSMENT / PLAN Assessment: The senior digital designer met with Yaz Adames to discuss her current hospitalization and home going needs. The patient was unaccompanied. The patient was a reliable historian. The role of RN CaseManager was reviewed. The patient reviewed her prior level of care and support system. The patient receives support from her daughter. The patient described her living environment as a multiple level home with ramped entrance. Housekeeping, grocery shopping, meal prep, and other household responsibilities have previously been completed by patient's daughter. senior digital designer discussed the patient's potential needs at dismissal based on their home setting, previous needs and responsibilities, homebound status, and relevant assessmentswith the patient. Support will be provided by patient's daughter. The patient demonstrated understanding when discussing her home going plans and anticipated needs. Patient expressed wanting to go to a rehab facility upon discharge. Yaz has requested admission to [facility] in [place], [place] ([phone]) as her first choice. Patient also identifies [facility] ([phone]) or [facility] ([phone]) as alt ernative options for SNF admission. Physical and occupational therapy have yet to evaluate the patient so senior digital designer will await their recommendations for further discharge planning steps. Patient Reports that she gets assistance with bathing twice a week through a home health care agency which she pays for privately. Patient says that her daughter Lia comes over 2 hours a day 5 days a week to assist with housekeeping, meal prep, and transportation as needed. It was noted that patient's 4-wheeled walker she brought into the hospital has a podium attachment that she was using at home. Patient states she has a ramp entry into her home with her bedroom and bathroom with walk in shower on the same level. At this time, the senior digital designer will await physical and occupational therapy's recommendations to assess if a rehab facility would be feasible, as this is the patient's preferred discharge plan. After reviewing the patient's chart and meeting with the patient, the senior digital designer deemed the LACE+/readmission questions were not necessary. The patient reports understanding that she will dismiss from the hospital when medically stable. Pending hospital course and medical readiness, no barriers to dismissal have been identified at this time. Plan: The patient agrees with the following plan. Patient's anticipated discharge disposition is: pending physical and occupational therapy's recommendations. Home vs. Rehab facility Transportation upon dismissal will be provided by family--Lia . senior digital designer recommended private pay home services such as housekeeping, assistance with ADLs, private caregivers, Life Alert services, etc. and reaching out to family, friends, and neighbors for assistance. senior digital designer provided information regarding the dismissal process. senior digital designer placed or requested the following hospital-based consult orders and/or referrals: None. senior digital designer will continue to assess for homegoing needs with the interdisciplinary team. senior digital designer encouraged the patient to reach out with any questions/concerns. Signed by: Ashley Crowder R.N. 12/25/2021 Yaneth Lanier APRN, C.N.P. - 12/24/2021 11:26 AM CDTAssociated Order(s): Diabetes consult (hospital) SUBJECTIVE Diabetes consult (hospital) Referring Provider: Abdon Gill M.D. CHIEF COMPLAINT Patient seen today for management of diabetes. The patient is admitted on 12/24/2021 for Myelopathy Cervical (HCC) HISTORY OF PRESENT ILLNESS DIABETES HISTORY History of diabetes mellitus, type 2. Diagnosed 2021. PREADMISSION THERAPY: Glipizide 5 mg daily and Metformin 500 mg, 2 tablets twice daily. Last dose: 10/9 am. DIABETES COMPLICATIONS Neuropathy - peripheral. CO-MORBIDITIES Hypertension, Dyslipidemia, Obesity, BMI BMI (Calculated): 41.3 kg/m??, and Depression. DIET: Eats 3 meals a day. Midday meal is the largest. WEIGHT: She has gained 12# in the last 6 months. SCREENING: Did not assess. ACTIVITY: No regular exercise. Per daughter, Yaz is unable to walk further than 20 feet. This has been the case for quite some time. GLUCOSE MONITORING: The patient does not monitor blood glucose at home. She does have a glucose meter that is new withinthe last year or so. Per daughter, patient has gone to the ER twice in the last year with different symptoms and was found to be hyperglycemic. Advised to check readings at home and patient declined. Patient states that over the last month, she has tried to modify her diet and was able to bring her A1C down from 9.7% to 9% and is very proud of this. HYPOGLYCEMIA: Patient denies episodes of hypoglycemia. HOSPITAL COURSE: Past 24 hour blood glucose readings: No results for input(s): GLUCOSEPOC, GLUCOSE in the last 24 hours. No lab exists for component: GLUCOSEPOC, GLUF Yesterday, received: morning dose of Metformin and Glipizide. Steroids: None Current Diet None REVIEW OF SYSTEMS Pertinent items are noted in HPI PREADMISSION MEDICATION: Diabetes medication(s) were reconciled on 12/24/2021 OBJECTIVE VITALS Temperature: 37.1 ??C Resp Rate: 20 Blood Pressure: 143/73 BP Location: Left arm;Upper SpO2: 94 % BSA (Calculated - sq m): 2.48 sq meters BMI (Calculated): 41.3 kg/m?? Height: 175.3 cm Weight: 127 kg Body mass index is 41.31 kg/m??. PHYSICAL EXAMINATION Physical Exam General: female in no acute distress, wearing cervical collar, lying in bed with supportive daughter present. Answering questions, but became frustrated and put her hands over her face and said you know, I don't really want to talk about this. Mental: alert and oriented. Respiratory: breathing pattern regular and unlabored on room air. DIAGNOSTICS I have reviewed relevant diagnostics and labs. Lab Results Component Value Date HGBA1C 9.0 (H) 12/18/2021 Estimated Creatinine Clearance: 109.9 mL/min (by C-G formula based on SCr of 0.7 mg/dL). Lab Results Component Value Date CREATININE 0.70 12/18/2021 ASSESSMENT / PLAN #1 Diabetes mellitus, type 2, uncontrolled with hyperglycemia A1c 9% #2 Obesity, class 3 INPATIENT PLAN: - Blood glucose monitoring: four times daily - Glucose goal: 140-180 mg/dL - Basal: No basal insulin. - Mealtime: NovoLog 1 unit for every 10 grams of carbohydrates consumed with meals. - Correction scale: NovoLog moderate correction scale three times a day - DCS will evaluate and adjust insulin doses as indicated to achieve glycemic goal. - Consults: Diabetes Educators - Hold oral diabetes medications ANTICIPATED DISMISSAL PLAN: Preadmission regimen with dose adjustment. Blood glucose frequency: twice daily Goal: 100-140 mg/dL Please page DCS within 24 hours prior to hospital dismissal for final dismissal recommendations. Discussed above plan with the patient and patient's family. Patient is alert and oriented and in agreement with the plan. Thank you for the consult. DCS pager [phone] will follow. Call primary service for diabetes concerns between [phone]. Primary service to contact DCS via hospital potato chip sacking machine operator for questions. documented in this encounter Nursing Notes Lala Rivers R.N. - 12/28/2021 3:13 PM CDT Last set of VS taken. VSS. IV was taken out. The patient was dressing and all belongings were gathered to prepare for transport. All questions regarding next level of care was answered at bedside. Pt left the floor with [employer] with all her belongings to go to [facility]. Svetlana Núñez R.N. - 12/26/2021 6:20 AM CDT Problem: PAIN - ADULT Goal: PT VERBALIZES/DEMONSTRATES ADEQUATE COMFORT LEVEL OR BASELINE Outcome: Progressing Note: Patient's pain increased to an 8/10 overnight while she was sleeping, PRN oxy given which helped to bring her pain back down. Shift Goals: Clinical Goals for the Shift: Pain control Identify possible barriers to meeting goals/advancing plan of care: diagnosis, pain End of Shift Summary: Goal partially met, see above for details. Patient remained vitally stable this shift. She wanted to take the CPAP off early in the night, so she was put on 2L nasal cannula instead. Her Hemovac drain had about 15 ml of output overnight. Nasrin Xiong R.N. - 12/25/2021 2:42 AM CDT Shift Goals: Pain control, Ambulate, and monitor blood sugar hourly Identify possible barriers to meeting goals/advancing plan of care:Patient hesitant to move and ambulate. She is worried about pain. Tried the bedpan but it was uncomfortable. Patient strongly encouraged to walk to the bathroom. She moves slow but had no dizziness or nausea. She used her home walker with assist of 2--one person to help with the IV pole. Patient refused senna. Wants to eat prunes she brought from home and drink prune juice for now. Had a nausea over night but no vomiting.Patient refused SCD around 230 am r/t pain with restless legs. End of Shift Summary: Patient got up to the bathroom but sometime misses the hat. Slept in increments overnight and was snacking intermittently. Unfortunately I had to wake her hourly for blood sugars. Problem: SAFETY ADULT Goal: Maintain a safe environment Outcome: Not Progressing Problem: SAFETY ADULT - RISK FOR FALL AND OR FALL INJURY Goal: Patient remains free from fall/fall injury Outcome: Not Progressing Problem: PAIN - ADULT Goal: PT VERBALIZES/DEMONSTRATES ADEQUATE COMFORT LEVEL OR BASELINE Outcome: Not Progressing Problem: KNOWLEDGE DEFICIT Goal: Patient/family/caregiver demonstrates understanding of disease process, treatment plan, medications, and discharge instructions Outcome: Not Progressing Problem: INFECTION - ADULT Goal: Absence of infection during hospitalization Outcome: Not Progressing Problem: SKIN/TISSUE INTEGRITY Goal: Skin/Tissue integrity maintained or improved Outcome: Not Progressing Goal: Oral and Nasal mucous membranes remain intact Outcome: Not Progressing Problem: DISCHARGE PLANNING Goal: Patient discharge needs identified Outcome: Not Progressing Problem: POTENTIAL OR ACTUAL PRESSURE INJURY-ADULT Goal: Manage sensory Perception deficits to maintain and/or improve skin integrity Outcome: Not Progressing Goal: Maintain optimal skin moisture to ensure or improve skin integrity Outcome: Not Progressing Goal: Achieve optimal activity and/or mobility to maintain or improve skin integrity Outcome: Not Progressing Goal: Nutrient intake appropriate for improving, restoring or maintaining skin integrity Outcome: Not Progressing Goal: Minimize friction and/or shear to maintain or improve skin integrity Outcome: Not Progressing Problem: Compromised Skin Integrity Goal: Skin/Tissue integrity maintained or improved Outcome: Not Progressing Goal: Oral and Nasal mucous membranes remain intact Outcome: Not Progressing Goal: Incisions, wounds, or drain sites healing without S/S of infection Outcome: Not Progressing Problem: Incontinence and/or Moisture Goal: Skin integrity is maintained or improved Outcome: Not Progressing documented in this encounter OR Notes Brief Op Note - Abdon Gill M.D. - 12/24/2021 4:30 PM CDT Orthopedic Spine Surgery Brief Op Note ??Name: Yaz Adames Date: 12/24/21 ???Preoperative diagnosis: Pre-Op Diagnosis Codes: * Myelopathy Cervical (HCC) [G95.9] ???Postoperative diagnosis: same Procedure: Procedure(s): LAMINOPLASTY POSTERIOR CERVICAL C3-7. Surgeon: Primary: Wilmer Kearns M.D. Findings: as dictated EBL: per anesthesia report I/Os: Please see Anesthesia record Specimens: none Complications: none Rosangela / [phone] 66 y.o. female now s/p laminoplasty C3-C7 (Javier). PMH: Type 2 diabetes, hypertension, depression PLAN - Activity: Soft collar for comfort. Okay to remove for showering. Avoid lifting >10lbs. PT consult. - Antibiotics: Cefazolin until drain out - Cultures: None - Diet: Advance as tolerated to general diabetic - Drains: Accordion x1, remove when <30cc/shift after mobilizing - Wound: Gauze/tegaderm, change as needed - Imaging: Upright x-rays complete - Montaño: Discontinued - DVT Prophylaxis: SCD's and early mobilization. No chemical DVT prophylaxis given spine surgery - Pain: Multimodal, NSAIDs okay - Disposition: Anticipate discharge to home Active Issues # Acute blood loss anemia - monitor CBC and transfuse as needed. Comorbidities Present on Admission #1 Myelopathy Cervical (HCC) Abdon Gill M.D. Op Note - Wilmer Kearns M.D. - 12/24/2021 3:40 PM CDT SURGEON: Dr. Wilmer Kearns. AQUACULTURAL WORKER SUPERVISOR: Dr. Tho Heredia. PRE-OPERATIVE DIAGNOSIS Progressive cervical myelopathy. Congenital cervical stenosis. Chronic urinary incontinence. Degenerative scoliosis. Progressive neurogenic claudication. Obesity, body mass index 41.3. Diabetes mellitus type 2. Hypertension, essential, primary. Depression, major, recurrent, partial remission. Constipation. Neuropathic pain. Central sensitization syndrome. Chronic anticoagulation therapy. Pulmonary embolus, personal history. Obstructive sleep apnea. Restless legs syndrome. POST-OPERATIVE DIAGNOSIS Progressive cervical myelopathy. Congenital cervical stenosis. Chronic urinary incontinence. Degenerative scoliosis. Progressive neurogenic claudication. Obesity, body mass index 41.3. Diabetes mellitus type 2. Hypertension, essential, primary. Depression, major, recurrent, partial remission. Constipation. Neuropathic pain. Central sensitization syndrome. Chronic anticoagulation therapy. Pulmonary embolus, personal history. Obstructive sleep apnea. Restless legs syndrome. A international first officer actively participated in one or more of the following: Opening, exposure and visualization during the case, maintaining hemostasis, wound closure. INDICATIONS: Treatment of pain, prevention of neurologic decline. PROCEDURE(S): Application of Shaver-Wells tongs for positioning. Neurophysiologic monitoring to include running EMG, SSEPs, and MEPs. Dome laminectomy, C3, C7. Laminoplasty C4-6. ANESTHESIA: General endotracheal. IMPLANTS: DePuy Synthes ARCH laminoplasty set. HISTORY OF PRESENT ILLNESS: Ms. Adames is a very pleasant 66-year-old female with the above conditions. She tried comprehensive nonoperative treatment for progressive cervical myelopathy. As she is failing nonoperative treatment and noting progression of her symptoms, she was interested in operative intervention, and I did discuss in my hands this would entail a cervical laminoplasty. I did discuss the primary goal of such a surgical intervention, which would be to prevent progression of her myelopathy. We did discussthat her symptoms may be no better or even worse with a surgical intervention. We did review the risks of surgery including risk of surgical site infection, spinal fluid leak, neurologic injury, instrumentation issues, adjacent segment issues, bleeding, anesthetic complications, perioperative medical complications. In particular, we did discuss the risk of C5 palsy, which can be as high as 11%. We also did discuss the elevated risk of surgical site infection and postoperative hematoma issues in the setting of her medical comorbidities. After a long discussion of the risks, benefits, and alternatives, the patient wished to proceed with surgery. Informed consent was obtained and signed. All questions were answered. COMPLICATIONS None. OPERATIVE NOTE NARRATIVE The patient was identified in the preoperative holding area by name and clinic number. The posteriorcervical spine was site marked. The patient was then brought to OR 709. General endotracheal anesthesia was induced without complications. Baseline neurophysiologic monitoring was obtained. The patientwas then positioned prone on a Juan Manuel table with Shaver-[place]s tongs, and care was taken to pad allbony prominences. The posterior cervical spine was then prepped and draped in standard sterile orthopedic fashion. A preprocedural pause was performed to confirm the correct patient, site, midline nature of the procedure, procedure itself, as well as administration of preoperative antibiotics. Following this, we did localize the C3-7 level with fluoroscopy. Incision was made in the midline. Dissection was carried down through skin and subcutaneous tissue down to fascia. The ligamentum nuchaewas followed in the midline to avoid vascular embarrassment. Subperiosteal dissection was performed to expose the spinous process and lamina, lateral mass junctions from C3 to C6. We also exposed the leading edge of C7 in standard fashion. Care was taken to avoid disruption of the facet joint capsules. Following this, self-retaining retractors were placed for our exposure and a localization film was obtained to confirm our levels. We then turned our attention to our dome laminectomy at C3, utilizinga 3.0-mm matchstick bur to resect the caudal aspect of C3 up to the ligamentum flavum insertion. We then released this with an angled cervical curette and resected in the midline, extending out laterally to complete our resection of the ligamentum flavum at the C3-4 interspace. In similar fashion, we resected the leading edge of the C7 lamina as well as the ligamentum flavum at the C6-7 interspace tocomplete our dome laminectomies of C3 and C7 in standard fashion. Satisfied with this, we then turned our attention to our laminoplasty. Based off our preoperative templating, we created troughs roughly 22 mm in width at the lamina-facet junction. We did create troughs utilizing 3.0-mm matchstick bur on the left side, which can be our opening side, down to the level of ligamentum flavum, and on the right side, which was our hinge side, down to the ventral eggshell cortex. We then carefully resected the ligamentum flavum at the base of our left-sided trough and then gradually mobilized the laminoplasty segments in standard fashion. Once we were satisfied with this, we trialed and elected to place 10-mm plates at all 3 levels, placing 6-mm screws into the laminar side of the plate and 8-mm screws into the lateral mass side. All plates achieved good fixation and we did note good decompression following the laminoplasty portion of the procedure. We then took care to ensure good range of motion withthe Shaver-[place] tongs, ensured adequate decompression across the laminoplasty from C3 to 7. Satisfied with this, repeated motor-evoked potential, which showed no change from baseline, obtained AP andlateral fluoroscopic images, which showed satisfactory position of all of our instrumentation. Satisfied with this, repeated one last motor-evoked potential, which showed no change from baseline. We copiously irrigated the wound, placed a subfascial drain as well as vancomycin powder in the wound, andclosed the wound in anatomic layers. Sterile dressings were applied. A soft cervical collar was applied. The patient was subsequently transferred from the operating room table to hospital bed, extubated, and noted to be moving all 4 extremities grossly prior to return to the PACU. DRAINS: One subfascial Davol drain. POST-PROCEDURAL PLAN: The patient will be admitted to the General Orthopedic Service. We will begin mobilizing her with Physical Therapy starting tomorrow or later today. We will continue perioperative antibiotics and DVT prophylaxis per protocol and per recommendations of Vascular Medicine. We will also plan to have the patient seen by Social Work to start working on correction facility placement. I anticipate discharge to a correction facility in 3-4 nights. TPR: 2, Decompression and laminoplasty Wilmer Kearns M.D. CT CT Job ID: [id number] documented in this encounter Miscellaneous Notes Hospital Course - Abdon Gill M.D. - 12/25/2021 2:15 PM CDT Surgery Information This Encounter Past Procedures (12/25/2020 to Today) Date Procedures Providers Location 12/24/2021 LAMINOPLASTY POSTERIOR CERVICAL C3-7. Wilmer Kearns M.D.Bernatz, James T, M.D. RSTROMB OR Yaz Adames was taken to the operative room by Wilmer Kearns, * for the procedure listed above. The intraoperative as well as the immediate postoperative course were uncomplicated. For further details of the surgery please see the operative note. The patient was transferred from the PACU to the general care floor for continued observation and monitoring. She progressed in the usual post-operative fashion without complications. The patient was treated with perioperative IV antibiotics. She was given liquids by mouth and eventually advanced as toleratedtowards a more general diet. Her pain was well controlled with oral pain medications. Physical therapy / Occupational therapy was consulted for assistance with mobilization and gait training. She was mobilizing without difficulty and was compliant with any activity restrictions. Her incision remained intact with no concerns. Her bowel and bladder function were acceptable. She then met criteria for discharge and was later dismissed from the hospital. For any further details please see the most recentorthopedic surgery progress note and any other co-managing teams dated 12/25/2021. documented in this encounter Plan of Treatment Scheduled Referrals Name Type Priority Associated Order Schedule Diagnoses Orthopedic Surgery Outpatient Referral Routine Ex pected: Post Op (clinic) 01/12/2022 (Approximate), Expires: 12/25/2024 Orthopedic Surgery Outpatient Referral Routine Ex pected: office visit 04/27/2022 (clinic) (Approximate), Expires: 12/25/2024 documented as of this encounter Procedures Procedure Name Priority Date/Time Associated Comments Diagnosis GLUCOSE POCT, B Routine 12/28/2021 12:13 Results for this PM CDT procedure are i n the results section. GLUCOSE POCT, B Routine 12/28/2021 7:41 Results f or this AM CDT procedure are i n the results section. GLUCOSE POCT, B Routine 12/28/2021 3:15 Results f or this AM CDT procedure are i n the results section. GLUCOSE POCT, B Routine 12/27/2021 9:01 Results f or this PM CDT procedure are i n the results section. GLUCOSE POCT, B Routine 12/27/2021 4:33 Results f or this PM CDT procedure are i n the results section. GLUCOSE POCT, B Routine 12/27/2021 12:54 Results for this PM CDT procedure are i n the results section. GLUCOSE POCT, B Routine 12/27/2021 7:46 Results f or this AM CDT procedure are i n the results section. GLUCOSE POCT, B Routine 12/27/2021 2:32 Results f or this AM CDT procedure are i n the results section. GLUCOSE POCT, B Routine 12/26/2021 9:20 Results f or this PM CDT procedure are i n the results section. GLUCOSE POCT, B Routine 12/26/2021 5:12 Results f or this PM CDT procedure are i n the results section. GLUCOSE POCT, B Routine 12/26/2021 12:37 Results for this PM CDT procedure are i n the results section. GLUCOSE POCT, B Routine 12/26/2021 7:50 Results f or this AM CDT procedure are i n the results section. GLUCOSE POCT, B Routine 12/26/2021 1:13 Results f or this AM CDT procedure are i n the results section. GLUCOSE POCT, B Routine 12/25/2021 9:21 Results f or this PM CDT procedure are i n the results section. GLUCOSE POCT, B Routine 12/25/2021 4:17 Results f or this PM CDT procedure are i n the results section. GLUCOSE POCT, B Routine 12/25/2021 11:45 Results for this AM CDT procedure are i n the results section. GLUCOSE POCT, B Routine 12/25/2021 8:56 Results f or this AM CDT procedure are i n the results section. GLUCOSE POCT, B Routine 12/25/2021 7:56 Results f or this AM CDT procedure are i n the results section. GLUCOSE POCT, B Routine 12/25/2021 6:53 Results f or this AM CDT procedure are i n the results section. GLUCOSE POCT, B Routine 12/25/2021 5:57 Results f or this AM CDT procedure are i n the results section. DX CERVICAL SPINE RAD - Routine 12/25/2021 5:39 Result s for this 2-3 VIEWS (most inpatients AM CDT procedure a re in and all the results outpatients) section. GLUCOSE POCT, B Routine 12/25/2021 4:49 Results f or this AM CDT procedure are i n the results section. GLUCOSE POCT, B Routine 12/25/2021 3:45 Results f or this AM CDT procedure are i n the results section. GLUCOSE POCT, B Routine 12/25/2021 2:38 Results f or this AM CDT procedure are i n the results section. GLUCOSE POCT, B Routine 12/25/2021 1:47 Results f or this AM CDT procedure are i n the results section. GLUCOSE POCT, B Routine 12/25/2021 12:44 Results for this AM CDT procedure are i n the results section. GLUCOSE POCT, B Routine 12/24/2021 11:45 Results for this PM CDT procedure are i n the results section. GLUCOSE POCT, B Routine 12/24/2021 10:37 Results for this PM CDT procedure are i n the results section. GLUCOSE POCT, B Routine 12/24/2021 9:42 Results f or this PM CDT procedure are i n the results section. GLUCOSE POCT, B Routine 12/24/2021 8:41 Results f or this PM CDT procedure are i n the results section. CBC WITHOUT Routine 12/24/2021 8:41 Results for this DIFFERENTIAL, B PM CDT procedure ar e in the results section. BASIC METABOLIC Routine 12/24/2021 8:41 Results f or this PANEL, S/P PM CDT procedure are i n the results section. REMOTE OXIMETRY STAT 12/24/2021 8:01 MONITORING CONT. PM CDT GLUCOSE POCT, B Routine 12/24/2021 7:46 Results f or this PM CDT procedure are i n the results section. GLUCOSE POCT, B Routine 12/24/2021 6:41 Results f or this PM CDT procedure are i n the results section. GLUCOSE POCT, B Routine 12/24/2021 5:35 Results f or this PM CDT procedure are i n the results section. REMOTE OXIMETRY STAT 12/24/2021 5:05 MONITORING CONT. PM CDT REMOTE OXIMETRY STAT 12/24/2021 5:05 MONITORING CONT. PM CDT ADULT OXYGEN Routine 12/24/2021 4:47 THERAPY PM CDT GLUCOSE POCT, B Routine 12/24/2021 4:33 Results f or this PM CDT procedure are i n the results section. FL FLUORO LESS THAN RAD - Routine 12/24/2021 3:22 Resu lts for this 1 HOUR (most inpatients PM CDT procedure a re in and all the results outpatients) section. PATIENT STATUS STAT 12/24/2021 2:57 Results fo r this PM CDT procedure are i n the results section. SODIUM, B STAT 12/24/2021 2:57 Results for this PM CDT procedure are i n the results section. ABG W/COOX STAT 12/24/2021 2:57 Results for this PM CDT procedure are i n the results section. POTASSIUM, B STAT 12/24/2021 2:57 Results for this PM CDT procedure are i n the results section. GLUCOSE, WHOLE STAT 12/24/2021 2:57 Results fo r this BLOOD PM CDT procedure are i n the results section. CALCIUM, IONIZED, STAT 12/24/2021 2:57 Results for this S/B PM CDT procedure are i n the results section. GLUCOSE POCT, B Routine 12/24/2021 2:16 Results f or this PM CDT procedure are i n the results section. 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 IONM - EMG Routine 12/24/2021 9:59 AM CDT Resul ts for this procedure are in the results sec tion. documented in this encounter Results (ABNORMAL) Glucose, POCT (12/28/2021 12:13 PM CDT) Analysis Performed At [facility] Time Signature Glucose, POCT, 195 (H) 70 - 140 12/28/2021 PCLX B mg/dL 12:19 PM CDT Site Capillary 12/28/2021 PCLX 12:19 PM CDT Last Intake 3-4 hours 12/28/2021 PCLX 12:19 PM CDT Specimen Anatomical Collection Method Collection Time Receive d Time (Source) Location / / Volume Laterality Blood 12/28/2021 12:13 12/28/2021 PM CDT 12:19 PM CDT Unknown Provider LAB POCT ORDERABLES-MANUAL Performing Organization Address City/[facility] Phon e Number POC [facility] [address] [place] [address] [place] [address] [place] [facility] [address] [facility] (ABNORMAL) Glucose, POCT (12/28/2021 7:41 AM CDT) Analysis Performed At [facility] Signature Glucose, POCT, 226 (H) 70 - 140 12/28/2021 PCLX B mg/dL 7:48 AM CDT Site Capillary 12/28/2021 PCLX 7:48 AM CDT Last Intake 3-4 hours 12/28/2021 PCLX 7:48 AM CDT Specimen Anatomical Collection Method Collection Time Receive d Time (Source) Location / / Volume Laterality Blood 12/28/2021 7:41 AM 7:49 CDT AM CDT Unknown Provider LAB POCT ORDERABLES-MANUAL Performing Organization Address City/[facility] Phon e Number POC [facility] [address] [place] [address] [place] [address] [place] [facility] [address] (ABNORMAL) Glucose, POCT (12/28/2021 3:15 AM CDT) Analysis Performed At [facility] Time Signature Glucose, POCT, 181 (H) 70 - 140 12/28/2021 PCLX B mg/dL 3:19 AM CDT Site Capillary 12/28/2021 PCLX 3:19 AM CDT Last Intake 3-4 hours 12/28/2021 PCLX 3:19 AM CDT Specimen Anatomical Collection Method Collection Time Receive d Time (Source) Location / / Volume Laterality Blood 12/28/2021 3:15 AM 2 3:19 CDT AM CDT Unknown Provider LAB POCT ORDERABLES-MANUAL Performing Organization Address City/State/ZIP Code Phon e Number POC [facility] [address] [place] [address] [place] [address] [place] [facility] [address] [facility] (ABNORMAL) Glucose, POCT (12/27/2021 9:01 PM CDT) Analysis Performed At [facility] Time Signature Glucose, POCT, 168 (H) 70 - 140 12/27/2021 PCLX B mg/dL 9:12 PM CDT Site Capillary 12/27/2021 PCLX 9:12 PM CDT Specimen Anatomical Collection Method Collection Time Receive d Time (Source) Location / / Volume Laterality Blood 12/27/2021 9:01 PM 2 9:12 CDT PM CDT Unknown Provider LAB POCT ORDERABLES-MANUAL Performing Organization Address City/[facility] Code Phon e Number POC [facility] [address] [place] [address] [place] [address] [place] [facility] [address] [facility] (ABNORMAL) Glucose, POCT (12/27/2021 4:33 PM CDT) Analysis Performed At [facility] Time Signature Glucose, POCT, 236 (H) 70 - 140 12/27/2021 PCLX B mg/dL 5:02 PM CDT Site Capillary 12/27/2021 PCLX 5:02 PM CDT Last Intake 3-4 hours 12/27/2021 PCLX 5:02 PM CDT Specimen Anatomical Collection Method Collection Time Receive d Time (Source) Location / / Volume Laterality Blood 12/27/2021 4:33 PM 2 5:02 CDT PM CDT Unknown Provider LAB POCT ORDERABLES-MANUAL Performing Organization Address City/[facility]/ZIP Code Phon e Number POC [facility] [address] [place] [address] PCLX [facility] [place] [address] [place] [facility] [address] [facility] (ABNORMAL) Glucose, POCT (12/27/2021 12:54 PM CDT) Analysis Performed At [facility] Time Signature Glucose, POCT, 205 (H) 70 - 140 12/27/2021 PCLX B mg/dL 1:09 PM CDT Site Capillary 12/27/2021 PCLX 1:09 PM CDT Last Intake 3-4 hours 12/27/2021 PCLX 1:09 PM CDT Specimen Anatomical Collection Method Collection Time Receive d Time (Source) Location / / Volume Laterality Blood 12/27/2021 12:54 12/27/2021 1:09 PM CDT PM CDT Unknown Provider LAB POCT ORDERABLES-MANUAL Performing Organization Address City/[facility] Phon e Number POC [facility] [address] [place] [address] [place] [address] [place] [facility] [address] [facility] (ABNORMAL) Glucose, POCT (12/27/2021 7:46 AM CDT) Analysis Performed At [facility] Time Signature Glucose, POCT, 210 (H) 70 - 140 12/27/2021 PCLX B mg/dL 7:50 AM CDT Site Capillary 12/27/2021 PCLX 7:50 AM CDT Last Intake > 4 hours 12/27/2021 PCLX 7:50 AM CDT Specimen Anatomical Collection Method Collection Time Receive d Time (Source) Location / / Volume Laterality Blood 12/27/2021 7:46 AM 7:51 CDT AM CDT Unknown Provider LAB POCT ORDERABLES-MANUAL Performing Organization Address [facility] Phon e Number POC [facility] [address] [place] [address] [place] [address] [place] [facility] [address] [facility] (ABNORMAL) Glucose, POCT (12/27/2021 2:32 AM CDT) Analysis Performed At [facility] Time Signature Glucose, POCT, 180 (H) 70 - 140 12/27/2021 PCLX B mg/dL 6:28 AM CDT Site Capillary 12/27/2021 PCLX 6:28 AM CDT Last Intake > 4 hours 12/27/2021 PCLX 6:28 AM CDT Specimen Anatomical Collection Method Collection Time Receive d Time (Source) Location / / Volume Laterality Blood 12/27/2021 2:32 AM 2 6:28 CDT AM CDT Unknown Provider LAB POCT ORDERABLES-MANUAL Performing Organization Address City/State/ZIP Code Phon e Number POC [facility] [address] [place] [address] [place] [address] [place] [facility] [address] [facility] (ABNORMAL) Glucose, POCT (12/26/2021 9:20 PM CDT) Analysis Performed At [facility] Time Signature Glucose, POCT, 180 (H) 70 - 140 12/26/2021 PCLX B mg/dL 9:35 PM CDT Last Intake 3-4 hours 12/26/2021 PCLX 9:35 PM CDT Specimen Anatomical Collection Method Collection Time Receive d Time (Source) Location / / Volume Laterality Blood 12/26/2021 9:20 PM 2 9:35 CDT PM CDT Unknown Provider LAB POCT ORDERABLES-MANUAL Performing Organization Address City/[facility] Code Phon e Number POC [facility] [address] [place] [address] [place] [address] [place] [facility] [address] [facility] (ABNORMAL) Glucose, POCT (12/26/2021 5:12 PM CDT) Analysis Performed At [facility] Time Signature Glucose, POCT, 152 (H) 70 - 140 12/26/2021 PCLX B mg/dL 5:45 PM CDT Site Capillary 12/26/2021 PCLX 5:45 PM CDT Last Intake 3-4 hours 12/26/2021 PCLX 5:45 PM CDT Specimen Anatomical Collection Method Collection Time Receive d Time (Source) Location / / Volume Laterality Blood 12/26/2021 5:12 PM 2 5:46 CDT PM CDT Unknown Provider LAB POCT ORDERABLES-MANUAL Performing Organization Address City/[facility]/ZIP Code Phon e Number POC [facility] [address] [place] [address] [place] [address] [place] [facility] [address] [facility] (ABNORMAL) Glucose, POCT (12/26/2021 12:37 PM CDT) Analysis Performed At [facility] Time Signature Glucose, POCT, 287 (H) 70 - 140 12/26/2021 PCLX B mg/dL 1:15 PM CDT Site Capillary 12/26/2021 PCLX 1:15 PM CDT Specimen Anatomical Collection Method Collection Time Receive d Time (Source) Location / / Volume Laterality Blood 12/26/2021 12:37 12/26/2021 1:15 PM CDT PM CDT Unknown Provider LAB POCT ORDERABLES-MANUAL Performing Organization Address City/[facility]/ZIP Code Phon e Number POC [facility] [address] [place] [address] [place] [address] [place] [facility] [address] (ABNORMAL) Glucose, POCT (12/26/2021 7:50 AM CDT) Analysis Performed At [facility] Time Signature Glucose, POCT, 245 (H) 70 - 140 12/26/2021 PCLX B mg/dL 7:54 AM CDT Site Capillary 12/26/2021 PCLX 7:54 AM CDT Specimen Anatomical Collection Method Collection Time Receive d Time (Source) Location / / Volume Laterality Blood 12/26/2021 7:50 AM 2 7:55 CDT AM CDT Unknown Provider LAB POCT ORDERABLES-MANUAL Performing Organization Address City/[facility] Code Phon e Number POC [facility] [address] [place] [address] PCL[facility] [place] [address] [place] [facility] [address] (ABNORMAL) Glucose, POCT (12/26/2021 1:13 AM CDT) Analysis Performed At [facility] Time Signature Glucose, POCT, 221 (H) 70 - 140 12/26/2021 PCLX B mg/dL 1:16 AM CDT Site Capillary 12/26/2021 PCLX 1:16 AM CDT Last Intake 3-4 hours 12/26/2021 PCLX 1:16 AM CDT Specimen Anatomical Collection Method Collection Time Receive d Time (Source) Location / / Volume Laterality Blood 12/26/2021 1:13 AM 2 1:17 CDT AM CDT Unknown Provider LAB POCT ORDERABLES-MANUAL Performing Organization Address City/State/ZIP Code Phon e Number POC [facility] [address] [place] [address] [place] [address] [place] [facility] [address] (ABNORMAL) Glucose, POCT (12/25/2021 9:21 PM CDT) Analysis Performed At [facility] Time Signature Glucose, POCT, 218 (H) 70 - 140 12/25/2021 PCLX B mg/dL 9:39 PM CDT Site Capillary 12/25/2021 PCLX 9:39 PM CDT Last Intake 1-2 hours 12/25/2021 PCLX 9:39 PM CDT Specimen Anatomical Collection Method Collection Time Receive d Time (Source) Location / / Volume Laterality Blood 12/25/2021 9:21 PM 2 9:39 CDT PM CDT Unknown Provider LAB POCT ORDERABLES-MANUAL Performing Organization Address City/[facility] Phon e Number POC [facility] [address] [place] [address] [place] [address] [place] [facility] [address] [facility] (ABNORMAL) Glucose, POCT (12/25/2021 4:17 PM CDT) Analysis Performed At [facility] Time Signature Glucose, POCT, 238 (H) 70 - 140 12/25/2021 PCLX B mg/dL 4:21 PM CDT Site Capillary 12/25/2021 PCLX 4:21 PM CDT Specimen Anatomical Collection Method Collection Time Receive d Time (Source) Location / / Volume Laterality Blood 12/25/2021 4:17 PM 2 4:21 CDT PM CDT Unknown Provider LAB POCT ORDERABLES-MANUAL Performing Organization Address City/[facility] Phon e Number POC [facility] [address] [place] [address] [place] [address] [place] [facility] [address] (ABNORMAL) Glucose, POCT (12/25/2021 11:45 AM CDT) Analysis Performed At [facility] Time Signature Glucose, POCT, 235 (H) 70 - 140 12/25/2021 PCLX B mg/dL 11:53 AM CDT Site Capillary 12/25/2021 PCLX 11:53 AM CDT Specimen Anatomical Collection Method Collection Time Receive d Time (Source) Location / / Volume Laterality Blood 12/25/2021 11:45 12/25/2021 AM CDT 11:53 AM CDT Unknown Provider LAB POCT ORDERABLES-MANUAL Performing Organization Address City/State/ZIP Code Phon e Number POC [facility] [address] [place] [address] [facility] [place] [address] [place] [facility] [address] (ABNORMAL) Glucose, POCT (12/25/2021 8:56 AM CDT) Analysis Performed At Patho logist Time Signature Glucose, POCT, 188 (H) 70 - 140 12/25/2021 PCLX B mg/dL 10:05 AM CDT Site Capillary 12/25/2021 P[facility] 10:05 AM CDT Last Intake 1-2 hours 12/25/2021 P[facility] 10:05 AM CDT Specimen Anatomical Collection Method Collection Time Receive d Time (Source) Location / / Volume Laterality Blood 12/25/2021 8:56 AM 2 CDT 10:05 AM CDT Unknown Provider LAB POCT ORDERABLES-MANUAL Performing Organization Address City/[facility] Phon e Number POC [facility] [address] [place] [address] [place] [address] [place] [facility] [address] (ABNORMAL) Glucose, POCT (12/25/2021 7:56 AM CDT) Analysis Performed At Patho logist Time Signature Glucose, POCT, 142 (H) 70 - 140 12/25/2021 PCLX B mg/dL 8:09 AM CDT Last Intake > 4 hours 12/25/2021 P[facility] 8:09 AM CDT Specimen Anatomical Collection Method Collection Time Receive d Time (Source) Location / / Volume Laterality Blood 12/25/2021 7:56 AM 2 8:10 CDT AM CDT Unknown Provider LAB POCT ORDERABLES-MANUAL Performing Organization Address City/[facility] Phon e Number POC [facility] [address] [place] [address] [place] [address] [place] [facility] [address] Glucose, POCT (12/25/2021 6:53 AM CDT) Analysis Performed At Patho logist Time Signature Glucose, POCT, 135 70 - 140 12/25/2021 P[facility] B mg/dL 6:58 AM CDT Site Capillary 12/25/2021 P[facility]X 6:58 AM CDT Specimen Anatomical Collection Method Collection Time Receive d Time (Source) Location / / Volume Laterality Blood 12/25/2021 6:53 AM 2 6:58 CDT AM CDT Unknown Provider LAB POCT ORDERABLES-MANUAL Performing Organization Address City/[facility] Phon e Number POC [facility] [address] [place] [address] [place], [place] [id number] [place] [address] POC 200 [facility] Glucose, POCT (12/25/2021 5:57 AM CDT) P athologist Signature Glucose, POCT, 110 70 - 140 12/25/2021 PCLX B mg/dL 6:01 AM CDT Specimen Anatomical Collection Method Collection Time Receive d Time (Source) Location / / Volume Laterality Blood 12/25/2021 5:57 AM 2 6:01 CDT AM CDT Unknown Provider LAB POCT ORDERABLES-MANUAL Performing Organization Address City/[facility] Phon e Number POC [facility] [address] [place] [address] [place] [address] [place] [facility] 200 [facility] DX Cervical Spine 2-3 Views (12/25/2021 5:39 AM CDT) Anatomical Region Laterality Modality Cervical Spine, Musculoskeletal RST LOS, N/A Digital Radiography Neuroradiology ARZ LOS, Muskuloskeletal FLA LOS Specimen (Source) Anatomical Collection Method Collection Time Re ceived Time Location / / Volume Laterality 12/25/2021 6:43 AM CDT Impressions 12/25/2021 8:26 AM CDT Postoperative changes of the cervical spine. There is an overlying surgical drain. 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 Minimal anterolisthesis of C2 on C3. Narrative 12/25/2021 8:26 AM CDT EXAM: ??DX CERVICAL SPINE 2-3 VIEWS Procedure Note Devan, Scarlett K, M.D. - 12/25/2021Formatt ing of this note might be different from the original. EXAM: DX CERVICAL SPINE 2-3 VIEWS IMPRESSION: Postoperative changes of the cervical sp ine. There is an overlying surgical drain. 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 Minimal anterolisthesis of C2 on C3. Abdon Gill M.D. IMG DIAGNOSTIC IMAGING PROCE DEB Glucose, POCT (12/25/2021 4:49 AM CDT) athologist Signature Glucose, POCT, 131 70 - 140 12/25/2021 [facility] B mg/dL 4:52 AM CDT Specimen Anatomical Collection Method Collection Time Receive d Time (Source) Location / / Volume Laterality Blood 12/25/2021 4:49 AM 2 4:53 CDT AM CDT Unknown Provider LAB POCT ORDERABLES-MANUAL Performing Organization Address City/[facility] Code Phon e Number POC [facility] [address] [place] [address] [place], [place] [phone] [place] [address] POC [address] [facility] (ABNORMAL) Glucose, POCT (12/25/2021 3:45 AM CDT) Analysis Performed At Patho logist Time Signature Glucose, POCT, 173 (H) 70 - 140 12/25/2021 PCLX B mg/dL 3:53 AM CDT Site Capillary 12/25/2021 P[facility] 3:53 AM CDT Last Intake > 4 hours 12/25/2021 P[facility] 3:53 AM CDT Specimen Anatomical Collection Method Collection Time Receive d Time (Source) Location / / Volume Laterality Blood 12/25/2021 3:45 AM 2 3:53 CDT AM CDT Unknown Provider LAB POCT ORDERABLES-MANUAL Performing Organization Address City/[facility] Phon e Number POC [facility] [address] [place] [address] [place], [place] [phone] [place] [address] (ABNORMAL) Glucose, POCT (12/25/2021 2:38 AM CDT) athologist Signature Glucose, POCT, 255 (H) 70 - 140 12/25/2021 [facility] B mg/dL 2:41 AM CDT Specimen Anatomical Collection Method Collection Time Receive d Time (Source) Location / / Volume Laterality Blood 12/25/2021 2:38 AM 2 2:41 CDT AM CDT Unknown Provider LAB POCT ORDERABLES-MANUAL Performing Organization Address City/[facility]/ZIP Code Phon e Number POC [facility] [address] [place] [address] [place] [address] [place] [facility] [address] (ABNORMAL) Glucose, POCT (12/25/2021 1:47 AM CDT) athologist Signature Glucose, POCT, 282 (H) 70 - 140 12/25/2021 [facility] B mg/dL 1:49 AM CDT Specimen Anatomical Collection Method Collection Time Receive d Time (Source) Location / / Volume Laterality Blood 12/25/2021 1:47 AM 2 1:49 CDT AM CDT Unknown Provider LAB POCT ORDERABLES-MANUAL Performing Organization Address City/[facility] Phon e Number POC [facility] [address] [place] [address] [place] [address] [place] [facility] [address] (ABNORMAL) Glucose, POCT (12/25/2021 12:44 AM CDT) athologist Signature Glucose, POCT, 283 (H) 70 - 140 12/25/2021 [facility] B mg/dL 1:49 AM CDT Specimen Anatomical Collection Method Collection Time Receive d Time (Source) Location / / Volume Laterality Blood 12/25/2021 12:44 12/25/2021 1:49 AM CDT AM CDT Unknown Provider LAB POCT ORDERABLES-MANUAL Performing Organization Address City/[facility]/ZIP Code Phon e Number POC [facility] [address] [place] [address] [place] [address] [place] [facility] [address] (ABNORMAL) Glucose, POCT (12/24/2021 11:45 PM CDT) athologist Signature Glucose, POCT, 215 (H) 70 - 140 12/24/2021 [facility] B mg/dL 11:53 PM CDT Specimen Anatomical Collection Method Collection Time Receive d Time (Source) Location / / Volume Laterality Blood 12/24/2021 11:45 12/24/2021 PM CDT 11:53 PM CDT Unknown Provider LAB POCT ORDERABLES-MANUAL Performing Organization Address City/[facility]/ZIP [facility] Phon e Number POC [facility] [address] [place] [address] [place] [address] [place] [facility] [address] (ABNORMAL) Glucose, POCT (12/24/2021 10:37 PM CDT) Analysis Performed At Patho logist Time Signature Glucose, POCT, 219 (H) 70 - 140 12/24/2021 [facility] B mg/dL 10:41 PM CDT Site Capillary 12/24/2021 P[facility] 10:41 PM CDT Last Intake 1-2 hours 12/24/2021 P[facility] 10:41 PM CDT Specimen Anatomical Collection Method Collection Time Receive d Time (Source) Location / / Volume Laterality Blood 12/24/2021 10:37 12/24/2021 PM CDT 10:41 PM CDT Unknown Provider LAB POCT ORDERABLES-MANUAL Performing Organization Address City/[facility] Phon e Number POC [facility] [address] [place] [address] [place] [address] [place] [facility] [address] (ABNORMAL) Glucose, POCT (12/24/2021 9:42 PM CDT) P athologist Signature Glucose, POCT, 165 (H) 70 - 140 12/24/2021 [facility] B mg/dL 9:49 PM CDT Specimen Anatomical Collection Method Collection Time Receive d Time (Source) Location / / Volume Laterality Blood 12/24/2021 9:42 PM 9:49 CDT PM CDT Unknown Provider LAB POCT ORDERABLES-MANUAL Performing Organization Address City/[facility]/ZIP [facility] Phon e Number POC [facility] [address] [place] [address] [place] [address] [place] [facility] [address] (ABNORMAL) Glucose, POCT (12/24/2021 8:41 PM CDT) Analysis Performed At Patho logist Time Signature Glucose, POCT, 166 (H) 70 - 140 12/24/2021 [facility] B mg/dL 8:45 PM CDT Site Venstick 12/24/2021 P[facility] 8:45 PM CDT Last Intake > 4 hours 12/24/2021 [facility] 8:45 PM CDT Specimen Anatomical Collection Method Collection Time Receive d Time (Source) Location / / Volume Laterality Blood 12/24/2021 8:41 PM 8:46 CDT PM CDT Unknown Provider LAB POCT ORDERABLES-MANUAL Performing Organization Address City/State/ZIP Code Phon e Number POC [facility] [address] [place] [address] [facility] [place] [address] [place] [facility] 200 [facility] (ABNORMAL) CBC without Differential (12/24/2021 8:41 PM CDT) Patholo gist Method Time Signature Hemoglobin 14.3 11.6 - 12/24/2021 DTL 15.0 g/dL 9:29 PM CDT Hematocrit 45.5 (H) 35.5 - 12/24/2021 DTL 44.9 % 9:29 PM CDT Erythrocytes 5.09 3.92 - 12/24/2021 DTL 5.13 9:29 PM CDT x10(12)/L MCV 89.4 78.2 - 12/24/2021 DTL 97.9 fL 9:29 PM CDT RBC Distrib Width 14.6 12.2 - 12/24/2021 DTL 16.1 % 9:29 PM CDT Platelet Count 317 157 - 371 12/24/2021 DTL x10(9)/L 9:29 PM CDT Leukocytes 18.5 (H) 3.4 - 9.6 12/24/2021 DTL x10(9)/L 9:29 PM CDT Specimen Anatomical Collection Method Collection Time Receive d Time (Source) Location / / Volume Laterality Blood (Blood, 12/24/2021 8:41 PM 12/25/19 22 9:23 Venous) CDT PM CDT Abdon P Jairo M.D. LAB BLOOD ADD-ON Performing Organization Address City/[facility] Phon e Number [facility] - [address] [place], [place] [address] [place] [address] [place], [place] [phone] [place] [address] First [facility] (ABNORMAL) Basic Metabolic Panel (12/24/2021 8:41 PM CDT) P athologist Signature Potassium, S 4.1 3.6 - 5.2 12/24/2021 DTL mmol/L 10:01 PM CDT Sodium, S 138 135 - 145 12/24/2021 DTL mmol/L 10:01 PM CDT Chloride, S 97 (L) 98 - 107 12/24/2021 DTL mmol/L 10:01 PM CDT Bicarbonate, S 28 22 - 29 12/24/2021 DTL mmol/L 10:01 PM CDT Anion Gap 13 7 - 15 12/24/2021 DTL 10:01 PM CDT BUN (Blood Urea 10 6 - 21 12/24/2021 DTL Nitrogen), S mg/dL 10:01 PM CDT Creatinine 0.69 0.59 - 12/24/2021 DTL 1.04 mg/dL 10:01 PM CDT Estimated GFR >90 >=60 12/24/2021 DTL (eGFR) mL/min/BSA 10:01 PM CDT Comment: Estimated GFR calculated using the 2020 CKD_EPI creatinine equation. Calcium, Total, S 9.1 8.8 - 10.2 mg/dL 12/24/2021 10:0 1 PM CDT DTL Glucose, S 152 (H) 70 - 140 mg/dL 12/24/2021 10:01 PM CDT DTL Specimen Anatomical Collection Method Collection Time Receive d Time (Source) Location / / Volume Laterality Blood (Blood, 12/24/2021 8:41 PM 12/25/19 9:44 Venous) CDT PM CDT Abdon Gill M.D. LAB BLOOD ADD-ON Performing Organization Address City/State/[facility] Code Phon e Number [facility] - [address] [place], [place] [address] [facility] [place] [address] [facility] [address] (ABNORMAL) Glucose, POCT (12/24/2021 7:46 PM CDT) P athologist Signature Glucose, POCT, 148 (H) 70 - 140 12/24/2021 [facility] B mg/dL 7:50 PM CDT Specimen Anatomical Collection Method Collection Time Receive d Time (Source) Location / / Volume Laterality Blood 12/24/2021 7:46 PM 2 7:50 CDT PM CDT Unknown Provider LAB POCT ORDERABLES-MANUAL Performing Organization Address City/State/ZIP Code Phon e Number POC [facility] [address] [place] [address] [place] [address] [place] [facility] [address] (ABNORMAL) Glucose, POCT (12/24/2021 6:41 PM CDT) P athologist Signature Glucose, POCT, 163 (H) 70 - 140 12/24/2021 [facility] B mg/dL 7:30 PM CDT Specimen Anatomical Collection Method Collection Time Receive d Time (Source) Location / / Volume Laterality Blood 12/24/2021 6:41 PM 2 7:30 CDT PM CDT Unknown Provider LAB POCT ORDERABLES-MANUAL Performing Organization Address City/[facility] Phon e Number POC [facility] [address] [place] [address] [place] [address] [place] [facility] [address] (ABNORMAL) Glucose, POCT (12/24/2021 5:35 PM CDT) Analysis Performed At Patho logist Time Signature Glucose, POCT, 142 (H) 70 - 140 12/24/2021 [facility] B mg/dL 5:37 PM CDT Site Capillary 12/24/2021 [facility] 5:37 PM CDT Specimen Anatomical Collection Method Collection Time Receive d Time (Source) Location / / Volume Laterality Blood 12/24/2021 5:35 PM 2 5:37 CDT PM CDT Unknown Provider LAB POCT ORDERABLES-MANUAL Performing Organization Address City/[facility]/ZIP [facility] Phon e Number POC [facility] [address] [place] [address] [place] [address] [place] [facility] [address] (ABNORMAL) Glucose, POCT (12/24/2021 4:33 PM CDT) P athologist Signature Glucose, POCT, 233 (H) 70 - 140 12/24/2021 PCSM B mg/dL 4:36 PM CDT Site ARTLINE 12/24/2021 PCSM 4:36 PM CDT Specimen Anatomical Collection Method Collection Time Receive d Time (Source) Location / / Volume Laterality Blood 12/24/2021 4:33 PM 4:36 CDT PM CDT Unknown Provider LAB POCT ORDERABLES-MANUAL Performing Organization Address City/[facility]/ZIP Code Phon e Number POC RST [facility] INPATIENT [address] [place], [place] [address] POC [address] [place] [address] [place] Fluoro Less Than 1 Hour (12/24/2021 3:22 PM CDT) Specimen (Source) Anatomical Location Collection Method / Collectio n Time Received Time / Laterality Volume Narrative 152 HOS LOS RST - 12/24/2021 3:24 PM CDT This exam does not require a radiologist review or interpretation. Please refer to the patient's medical record on this date for clinical details. Wilmer Kearns M.D. IMG FLUOROSCOPY PROCEDURES Performing Organization Address City/[facility]/ZIP Code Phon e Number 152 HOS LOS RST Patient Status (12/24/2021 2:57 PM CDT) athologist Signature Temperature 35.7 37.0 deg C 12/24/2021 STMA 2:57 PM CDT FIO2 0.60 0.21=AIR 12/24/2021 STMA 2:57 PM CDT Specimen Anatomical Collection Method Collection Time Receive d Time (Source) Location / / Volume Laterality Blood 12/24/2021 2:57 PM 2:57 CDT PM CDT Svetlana Hastings D.O. LAB BLOOD NON ADD-ON Performing Organization Address City/[facility]/ZIP Code Phon e Number [facility] - [address] [place], [place] [address] [place], [place] [id number] [place] [address] [address] [facility] (ABNORMAL) Glucose, Whole Blood (12/24/2021 2:57 PM CDT) athologist Signature Glucose 231 (H) 70 - 140 12/24/2021 STMA mg/dL 2:58 PM CDT Specimen Anatomical Collection Method Collection Time Receive d Time (Source) Location / / Volume Laterality Blood (Blood, 12/24/2021 2:57 PM 12/25/19 2:57 Arterial Line) CDT PM CDT Milton Davis M.D. LAB BLOOD TROPONIN Performing Organization Address City/[facility]/ZIP Code Phon e Number [facility] [address] [place], [place] [address] [facility] [place] [address] Potassium, Blood (12/24/2021 2:57 PM CDT) athologist Signature Potassium, B 3.7 3.6 - 5.2 12/24/2021 ST[facility] mmol/L 2:58 PM CDT Specimen Anatomical Collection Method Collection Time Receive d Time (Source) Location / / Volume Laterality Blood (Blood, 12/24/2021 2:57 PM 12/25/19 2:57 Arterial Line) CDT PM CDT Milton Davis M.D. LAB BLOOD NON ADD-ON Performing Organization Address City/[facility]/ZIP Code Phon e Number [facility] [address] [place], [place] [address] [facility] [place] [address] Sodium, B (12/24/2021 2:57 PM CDT) athologist Signature Sodium, B 135 135 - 145 12/24/2021 2:58 ST[facility] mmol/L PM CDT Specimen Anatomical Collection Method Collection Time Receive d Time (Source) Location / / Volume Laterality Blood (Blood, 12/24/2021 2:57 PM 12/25/19 2:57 Arterial Line) CDT PM CDT Milton Davis M.D. LAB BLOOD NON ADD-ON Performing Organization Address City/State/ZIP Code Phon e Number [facility] - [address] [place], [place] [address] [place] [address] [facility] Calcium, Ionized (12/24/2021 2:57 PM CDT) athologist Signature Calcium, 4.85 4.65 - 5.30 12/24/2021 [facility] Ionized, B mg/dL 2:58 PM CDT Specimen Anatomical Collection Method Collection Time Receive d Time (Source) Location / / Volume Laterality Blood (Blood, 12/24/2021 2:57 PM 12/25/19 2:57 Arterial Line) CDT PM CDT Milton Davis M.D. LAB BLOOD NON ADD-ON Performing Organization Address City/State/ZIP Code Phon e Number [facility] - [address] [place] [address] [place] [address] [facility]-[address] (ABNORMAL) Blood Gas with Coox, Arterial (12/24/2021 2:57 PM CDT) athologist Signature pO2 129 (H) 83 - 108 12/24/2021 STMA mm Hg 2:58 PM CDT pCO2 52 (H) 32 - 45 mm 12/24/2021 [facility] Hg 2:58 PM CDT pH 7.33 (L) 7.35 - 12/24/2021 [facility] 7.45 pH 2:58 PM CDT Base Excess 1 -2 - 3 12/24/2021 [facility] mmol/L 2:58 PM CDT HCO3 28 (H) 22 - 26 12/24/2021 [facility] mmol/L 2:58 PM CDT Hemoglobin, B 14.1 11.6 - 12/24/2021 [facility] 15.0 g/dL 2:58 PM CDT O2Hb 96.3 94.0 - 12/24/2021 [facility] 98.0 % 2:58 PM CDT COHb <1.0 <3.0 % 12/24/2021 [facility] 2:58 PM CDT MetHb <1.0 <1.5 % 12/24/2021 [facility] 2:58 PM CDT CtO2 19.2 18.0 - 12/24/2021 [facility] 21.0 vol % 2:58 PM CDT Specimen Anatomical Collection Method Collection Time Receive d Time (Source) Location / / Volume Laterality Blood (Blood, 12/24/2021 2:57 PM 12/25/19 2:57 Arterial Line) CDT PM CDT Milton Davis M.D. LAB BLOOD NON ADD-ON Performing Organization Address City/[facility]/ZIP Code Phon e Number [facility] - [address] [place], [place] [address] [facility] [place] [address] [facility] [address] (ABNORMAL) Glucose, POCT (12/24/2021 2:16 PM CDT) P athologist Signature Glucose, POCT, 251 (H) 70 - 140 12/24/2021 PCSM B mg/dL 2:19 PM CDT Site ARTLINE 12/24/2021 PCSM 2:19 PM CDT Specimen Anatomical Collection Method Collection Time Receive d Time (Source) Location / / Volume Laterality Blood 12/24/2021 2:16 PM 2:19 CDT PM CDT Unknown Provider LAB POCT ORDERABLES-MANUAL Performing Organization Address City/[facility]/ZIP Code Phon e Number POC [facility] [address] [place], [place] [address] [place] [address] [place] [facility] [address] (ABNORMAL) Glucose, POCT (12/24/2021 11:46 AM CDT) Analysis Performed At Patho logist Time Signature Glucose, POCT, 302 (H) 70 - 140 12/24/2021 PCLX B mg/dL 12:00 PM CDT Site Capillary 12/24/2021 PCLX 12:00 PM CDT Specimen Anatomical Collection Method Collection Time Receive d Time (Source) Location / / Volume Laterality Blood 12/24/2021 11:46 12/24/2021 AM CDT 12:00 PM CDT Unknown Provider LAB POCT ORDERABLES-MANUAL Performing Organization Address City/State/ZIP Code Phon e Number [facility] [address] [place] [address] [place] [address] [place] [facility] [address] IONM - EMG (12/24/2021 9:59 AM CDT) Specimen (Source) Anatomical Collection Method Collection Time Re ceived Time Location / / Volume Laterality 12/24/2021 10:00 AM CDT Narrative [facility] EMG - 12/24/2021 3:40 PM CDT Table formatting from the original result was not included. 24-Dec-2021 ? Intraopera tive Monitoring ? Final Report Study Number: 2 EMG Jai Alai Player: Indra Mallory . 127 or [phone] Referred by: WILMER KEARNS (127 or [phone]) Referred for: Referral Code: ?1957 RX: 1957 SUMMARY: Somatosensory evoked potentials (SEPs), transcranial electric motor evoked potentials (MEPs), and free running needle electrom yography (EMG) were monitored during C3- 7 posterior cervical laminoplasty. ??All stimulation and recording was performed with needle electrodes. Ulnar and tibial nerves were stimulated for SE Ps. MEPs were recorded from the following muscles bilaterally: deltoid, biceps brachii, ex tensor digitorum communis, abductor digiti minimi, tibialis anterior, and abductor hallucis .] Free running EMG was recorded from all upper limb muscles mentioned above. Four twitches w ere present on train of four (TOF) from all four limbs during baseline MEP recordings and after exposure was completed prior to resumption of MEP and EMG monitoring. SEP Reliable cortical SEPs were recorded at baseline from all four limbs in the supine position; the surgeon was informed prior to exposure. There were no significant changes in cortical SEP amplitudes durin g surgery. MEP Reliable MEPs were recorded at baseline from all muscles in the supine position; the surgeon was informed prior to exposure. There were no significant changes in MEP s during surgery. EMG No neurotonic discharges were observed. I personally provided professional overs ight for this surgery. Real-time neurophysiologic data was avai lable for me to view and interrogate contemporaneously. Throughout monitoring, there were provis ions for continuous and immediate communication directly with the operating room team in the surg ical suite. Geri Mallory (127 or [phone])/AC Surgery ? Staff Minutes Start-DateTime End-DateTim e Remote Simultaneous Supervision 131 12/15 13:02 PM CHALK MACHINE OPERATOR 12/24/2021 15:13 PM CHALK MACHINE OPERATOR Remote Exclusive (1:1) Supervision 0 12/2021 00:00 AM CHALK MACHINE OPERATOR 12/24/2021 00:00 AM CHALK MACHINE OPERATOR In-Room Exclusive (1:1) Supervision 0 00:00 AM CHALK MACHINE OPERATOR 12/24/2021 00:00 AM CHALK MACHINE OPERATOR Total Monitoring Time: 131 ?? This interpretation has been electron ically signed: Indra Mallory MD at 12/24/2021 3:16:44 PM CDT Procedure Note Indra Mallory M.D. - 12/24/2021Formatt ing of this note is different from the original. 24-Dec-2021 Intraoperative Monitoring Fi nal Report Study Number: 2 EMG Jai Alai Player: Indra Mallory . 127 or [phone] Referred by: WILMER KEARNS (127 or [phone]) Referred for: Referral Code: 1958 RX: 6 SUMMARY: Somatosensory evoked potentials (SEPs), transcranial electric motor evoked potentials (MEPs), and free running needle electrom yography (EMG) were monitored during C3- 7 posterior cervical laminoplasty. All stimulation a nd recording was performed with needle electrodes. Ulnar and tibial nerves were stimulated for SE Ps. MEPs were recorded from the following muscles bilaterally: deltoid, biceps brachii, ex tensor digitorum communis, abductor digiti minimi, tibialis anterior, and abductor hallucis .] Free running EMG was recorded from all upper limb muscles mentioned above. Four twitches w ere present on train of four (TOF) from all four limbs during baseline MEP recordings and after exposure was completed prior to resumption of MEP and EMG monitoring. SEP Reliable cortical SEPs were recorded at baseline from all four limbs in the supine position; the surgeon was informed prior to exposure. There were no significant changes in cortical SEP amplitudes durin g surgery. MEP Reliable MEPs were recorded at baseline from all muscles in the supine position; the surgeon was informed prior to exposure. There were no significant changes in MEP s during surgery. EMG No neurotonic discharges were observed. I personally provided professional overs ight for this surgery. Real-time neurophysiologic data was lavelle tate for me to view and interrogate contemporaneously. Throughout monitoring, there were provis ions for continuous and immediate communication directly with the operating room team in the surg ical suite. Geri Mallory (127 or [phone])/[facility] Surgery Staff Minutes Start-DateTime End-DateTim e Remote Simultaneous Supervision 131 12/15 13:02 PM CHALK MACHINE OPERATOR 12/24/2021 15:13 PM CHALK MACHINE OPERATOR Remote Exclusive (1:1) Supervision 0 12/2021 00:00 AM CHALK MACHINE OPERATOR 12/24/2021 00:00 AM CHALK MACHINE OPERATOR In-Room Exclusive (1:1) Supervision 0 00:00 AM CHALK MACHINE OPERATOR 12/24/2021 00:00 AM CHALK MACHINE OPERATOR Total Monitoring Time: 131 This interpretation has been electron ically signed: Indra Mallory MD at 12/24/2021 3:16:44 PM CDT Wilmer Kearns M.D. 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 Given 12/28/2021 8:43 AM CDT 1,000 mg Given 12/27/2021 8:56 PM CDT 1,000 mg acetaminophen tablet 1,000 mg (TYLENOL) Given 12/24/2021 11:48 AM CDT 1,000 mg 1,000 mg, oral, Once, On Fri12/24/21 at 1145, For 1 dose, Pre-Op, In PreOp holding (PWA) bisacodyL suppository 10 mg (DULCOLAX) 10 mg, rectal, Daily PRN, constipation, Starting on Fri12/24/21 at 1831, Ordered sequence of administration: polyethylene glycol, then bisacodyl until BM achieved. calcium carbonate chewable tablet 400 mg of calcium (TUMS) 400 mg of calcium, oral, 4 times daily P RN, heartburn, indigestion, Starting on Fri12/24/21 at 1831, Doses listed are in mg of elemental calcium. Take with food. 500 mg calcium carbonate contains 200 mg of elemental calc ium. ceFAZolin in dextrose (iso-os) IVPB 2 New Bag 12/26/2021 5:39 AM CDT 2 g 200 mL/hr g (ANCEF) 2 g, intravenous, at 200 mL/hr, Administer over 30 Minutes, Every 8 hours, First dose on Fri12/24/21 at 2200, Continue until drain removal, Drug Monitoring Program: Pharmacist to adjust medication dosing based on indication and drug clearance factors., Indications: Prophylaxis, surgical New Bag 12/25/2021 9:17 PM CDT 2 g 200 mL/hr New Bag 12/25/2021 2:10 PM CDT 2 g 200 mL/hr diazePAM tablet 5 mg (VALIUM) Given 12/27/2021 5:36 AM CDT 5 mg 5 mg, oral, 3 times daily PRN, muscle spasms, Starting on Fri12/25/21 at 0600 fentaNYL injection 25 mcg (SUBLIMAZE) Given 12/24/2021 5:24 PM CDT 25 mcg 25 mcg, intravenous, Every 2 min PRN, For pain 4 or greater (maximum 100 mcg). If max dose of Fentanyl is reached and if pain is greater than 4, discontinue Fentanyl: give Hydromorphone, Starting on Fri12/24/21 at 1647, PACU (only) Given 12/24/2021 5:19 PM CDT 25 mcg Given 12/24/2021 5:13 PM CDT 25 mcg hydroCHLOROthiazide tablet 25 mg (HYDROD IURIL) Given 12/28/2021 8:43 AM CDT 25 mg 25 mg, oral, Daily, First dose on Fri12/25/21 at 0900 Given 12/27/2021 8:09 AM CDT 25 mg Given 12/26/2021 8:03 AM CDT 25 mg HYDROmorphone (PF) injection 0.2 mg Given 12/25/2021 12:57 AM CD T 0.2 mg (DILAUDID) 0.2 mg, intravenous, As needed, severe pain or score 7-10 of 10, Starting on Fri12/24/21 at 1831, For 3 doses, Administer every 20 minutes as needed for pain greater than or equal to 7. Maximum of 3 doses. insulin aspart U-100 Given 12/26/2021 12:42 PM 7 Units Left Lower Abdomen (Carbohydrate Count) CDT injection 0-20 Units (NovoLOG FlexPen) 0-20 Units, subcutaneous, 3 times daily with meals, First dose on Fri12/25/21 at 0845, Simple or Complex Ratio: Simple, Carb Ratio - Simple (1 unit per __ grams of carbohydrates): 10 Given 12/26/2021 8:10 AM CDT 7 Units Left Lower Abdomen Given 12/25/2021 4:52 PM CDT 1 Units Right Upper Arm (Back) insulin aspart U-100 Given 12/28/2021 1:30 PM CDT 12 Units Right Lower Abdomen (Carbohydrate Count) injection 0-20 Units (NovoLOG FlexPen) 0-20 Units, subcutaneous, 3 times daily with meals, First dose (after last modification) on Fri12/26/21 at 1700, Simple or Complex Ratio: Simple, Carb Ratio - Simple (1 unit per __ grams of carbohydrates): 8 Given 12/28/2021 8:37 AM CDT 10 Units Left Lower Abdomen Given 12/27/2021 6:02 PM CDT 12 Units Right Upper Arm (Back) insulin aspart U-100 Given 12/28/2021 1:28 PM CDT 4 Units Right Lower Abdomen injection 0-13 Units (NovoLOG FlexPen) 0-13 Units, subcutaneous, 3 times daily, First dose on Fri12/25/21 at 0845, Insulin Scale: Moderate Correction Scale, 140 - 179: 2 units, 180 - 219: 4 units, 220 - 259: 6 units, 260 - 299: 8 units, 300 - 339: 10 units, 340 - 379: 12 units, 380 - 399: 13 units, Greater than 399: Call service writing Insulin orders Given 12/28/2021 8:36 AM CDT 6 Units Left Lower Abdomen Given 12/27/2021 6:00 PM CDT 6 Units Right Upper Arm (Back) insulin aspart U-100 injection 0-7 Units (NovoLOG FlexPen) 0-7 Units, subcutaneous, Daily at bedtime, First dose on Fri12/25/21 at 2100, Insulin Scale: Modified Bedtime Correction Scale, 220- 259: 3 units, 260-299: 4 units, 300-339: 5 units, 340-379: 6 unit s, 380-399: 7 units, Greater than 399: Call service writing insulin orders insulin aspart U-100 Given 12/27/2021 2:35 AM CDT 2 Units Right Upper Arm injection 0-7 Units (Back ) (NovoLOG FlexPen) 0-7 Units, subcutaneous, Every 24 hours, First dose on Fri12/27/21 at 0200, Insulin Scale: Mild Correction Scale, 180 - 219: 2 units, 220 - 259: 3 units, 260 - 299: 4 units, 300 - 339: 5 units, 340 - 379: 6 units, 380 - 399: 7 units, Greater than 399: Call service writing Insulin orders insulin aspart U-100 Given 12/24/2021 11:48 AM CDT 8 Units Left Upper Arm injection 0-8 Units (Back ) (NovoLOG FlexPen) 0-8 Units, subcutaneous, Every 2 hour PRN, high blood sugar, Nurse to determine and administer dose., Starting on Fri12/24/21 at 1133, For 2 doses, Pre-Op, Nurse to administer Aspart (Novolog) Insulin subcutaneous as needed every 2 hours for up to 2 doses per correction scale. First dose STAT. Do not administer a correction Insulin dose if glucose is greater than 140 mg/dL and a) It is within 2 hours of any rapid acting or short acting Insulin and/or b) the patient has consumed sugar or carbohydrate containing food or beverage within the past 4 hours. For glucose less than or equal to 70 mg/dL - initiate treatment of hypoglycemia., Insulin Aspart: Correction Scale Insulin (For Diabetes Mellitus diagnosis), 71 - 139: 0 units, 140 - 179: 2 units, 180 - 219: 4 units, 220 - 259: 6 units, 260 - 299: 8 units, Greater than or equal to 300: Call provider managing diabetes insulin glargine injection Given 12/25/2021 10:49 AM CDT 15 Unit s Right Lower Abdomen 15 Units 15 Units, subcutaneous, Every 24 hours, First dose on Fri12/25/21 at 0930 insulin glargine injection Given 12/26/2021 8:35 AM CDT 20 Units Right Lower Abdomen 20 Units 20 Units, subcutaneous, Every morning, First dose (after last modification) on 12/26/21 at 0900 insulin glargine injection Given 12/28/2021 8:53 AM CDT 22 Units Right Lower Abdomen 22 Units 22 Units, subcutaneous, Every morning, First dose (after last modification) on Dorcas 12/27/21 at 0900 Given 12/27/2021 8:16 AM CDT 22 Units Left Lower Abdomen insulin regular 1 Unit/mL Rate/Dose Change 12/25/2021 6:56 AM 0 Uni ts/hr 0 mL/hr in NaCl 0.9% 100 mL CDT infusion 0-25 Units/hr (0-25 mL/hr), intravenous, Continuous Infusion: Per Instructions PRN, Initiate infusion for glucose greater than 180 mg/dL, Starting on 12/24/21 at 1223, NOTIFY PRESCRIBER IF: Glucose is not within target range after 4 hours of IV insulin infusion. Patient starts eating. (50% of clear liquid diet or more) Patient starts bolus tube feedings. The insulin infusion has been either 0 to 1 unit/hour for 3 consecutive hours to consider orders to transition from IV to SQ long acting insulin. Infuse insulin into an existing line of a compatible IV solution and Y site insulin infusion into existing line below the infusion pump. Insulin infusion and existing line of compatible IV solution should each run as a primary line on separate infusion pumps at the ordered infusion rates. If no compatible IV solutions are ordered, infuse into an existing line of 0.45% NaCL infusion at 20 ml/hr. 100 Units in 100 mL, Calculator: Goal Range: 140-180 mg/dl, Starting Insulin Infusion Factor: 0.03 Rate/Dose Change 12/25/2021 5:59 AM CDT 0 Units/hr 0 mL/hr Rate/Dose Change 12/25/2021 4:48 AM CDT 0 Units/hr 0 mL/hr ketamine injection 10 mg (KETALAR) Given 12/24/2021 5:25 PM CDT 10 mg 10 mg, intravenous, Once as needed, Refractory moderate pain or score 4-6 of 10, Refractory severe pain score 7-10 of 10 after fentanyl or hydromorphone administration, Pain sedation mismatch AND RASS less than -1, Starting on Fri12/24/21 at 1647, For 1 dose, PACU (only) lactated ringers Rate/Dose Verify 12/25/2021 5:00 AM CDT 80 mL/hr 80 mL/hr 80 mL/hr, intravenous, Continuous, Starting on Fri12/24/21 at 1845 New Bag 12/24/2021 6:55 PM CDT 80 mL/hr 80 mL/hr magnesium hydroxide suspension 30 mL (PA LK OF MAGNESIA) 30 mL, oral, Daily PRN, constipation, St arting on Fri12/24/21 at 1831, Give if no bowel movement by post-operative day 3. menthol lozenge 1 lozenge 1 lozenge, oral, As needed, sore throat, Starting on M on 12/24/21 at 1831 naloxone injection 0.2 mg (NARCAN) 0.2 mg, intravenous, As needed, respirat ory depression, Starting on Fri12/24/21 at 1831, For RASS Score -4 or less, respiratory rate of l ess than 8 breaths/min. Notify provider/service and rapid response team (if av ailable at institution). ondansetron (PF) injection 4 mg (ZOFRAN) Given 12/25/2021 1:09 AM CDT 4 mg 4 mg, intravenous, Every 6 hours PRN, nausea, vomiting, Starting on Fri12/24/21 at 1831, For 48 hours, Reassess for nausea or vomiting after at least 10 minutes. If nausea or vomiting persists administer next ordered antiemetic medications (order for antiemetic medication administration ondansetron then haloperidol then prochlorperazine). oxyCODONE IR tablet 10 mg (ROXICODONE) Given 12/28/2021 2:53 PM CDT 10 mg 10 mg, oral, Every 4 hours PRN, severe pain or score 7-10 of 10, or pain greater than comfort goal if other analgesics fail, Starting on Fri12/24/21 at 1831, Maximum dose of 10 mg in 4 hours Given 12/28/2021 6:09 AM CDT 10 mg Given 12/28/2021 12:48 AM CDT 10 mg oxyCODONE IR tablet 5 mg (ROXICODONE) Given 12/26/2021 1:13 PM CDT 5 mg 5 mg, oral, Every 4 hours PRN, moderate pain or score 4-6 of 10, if other analgesics fail, Starting on Fri12/24/21 at 1831, Maximum dose of 10 mg in 4 hours Given 12/25/2021 9:17 PM CDT 5 mg polyethylene glycol powder packet 17 g Given 12/28/2021 8:42 AM CDT 17 g (MIRALAX) 17 g, oral, Daily, First dose on Fri12/25/21 at 0900, Constipation, hold for loose stools Avoid mixing with starch-based thickened liquids., Indications: constipation Given 12/27/2021 11:37 AM CDT 17 g Given 12/26/2021 8:04 AM CDT 17 g pramipexole tablet 0.25 mg (MIRAPEX) Given 12/25/2021 2:09 PM CDT 0.25 mg 0.25 mg, oral, Daily after lunch, First dose on Fri12/25/21 at 1245 pramipexole tablet 0.25 mg (MIRAPEX) Given 12/25/2021 9:17 PM CDT 0.25 mg 0.25 mg, oral, Daily at bedtime, First dose (after last reorder) on Fri12/25/21 at 2100, For 1 dose pramipexole tablet 0.25 mg (MIRAPEX) Given 12/27/2021 8:56 PM CDT 0.25 mg 0.25 mg, oral, Daily at bedtime, First dose (after last modification) on Fri12/26/21 at 2100 Given 12/26/2021 9:22 PM CDT 0.25 mg pramipexole tablet 0.375 mg (MIRAPEX) Given 12/25/2021 1:45 AM CDT 0.375 mg 0.375 mg, oral, Daily at bedtime, First dose on Fri12/25/21 at 0115 pramipexole tablet 0.375 mg (MIRAPEX) Given 12/28/2021 1:34 PM CDT 0.375 mg 0.375 mg, oral, Every evening, First dose on Fri12/26/21 at 1800 Given 12/27/2021 1:40 PM CDT 0.375 mg Given 12/26/2021 5:46 PM CDT 0.375 mg pregabalin capsule 100 mg (LYRICA) Given 12/28/2021 1:27 PM CDT 100 mg 100 mg, oral, Daily, First dose on Dorcas 12/27/21 at 1400 Given 12/27/2021 1:40 PM CDT 100 mg pregabalin capsule 150 mg (LYRICA) Given 12/28/2021 8:42 AM CDT 150 mg 150 mg, oral, 2 times daily, First dose on Fri12/25/21 at 0900 Given 12/27/2021 8:56 PM CDT 150 mg Given 12/27/2021 8:09 AM CDT 150 mg prochlorperazine injection 5 mg (COMPAZI NE) Given 12/25/2021 2:09 AM CDT 5 mg 5 mg, intravenous, Every 6 hours PRN, vomiting, nausea, Starting on Fri12/24/21 at 1831, For 48 hours, RASS must be -2 or higher to administer. Reassess for nausea or vomiting after at least 10 minutes. If nausea or vomiting persists administer next ordered antiemetic medications (order for antiemetic medication administration ondansetron then haloperidol then prochlorperazine) sennosides-docusate sodium 8.6-50 mg per Given 12/28/2021 8:43 A M CDT 1 tablet tablet 1 tablet (SENOKOT-S) 1 tablet, oral, 2 times daily, First dose on Fri12/24/21 at 2100, For constipation. Hold for diarrhea. Given 12/27/2021 8:57 PM CDT 1 tablet Given 12/27/2021 8:10 AM CDT 1 tablet traZODone tablet 100 mg (DESYREL) Given 12/25/2021 12:10 AM CDT 100 mg 100 mg, oral, Bedtime PRN, sleep, Starting on Fri12/24/21 at 2333 venlafaxine XR 24 hr capsule 225 mg Given 12/28/2021 8:42 AM CDT 225 mg (EFFEXOR-XR) 225 mg, oral, Daily, First dose on Fri12/25/21 at 0900, Swallow whole. Do NOT crush, chew or open capsule. Given 12/27/2021 8:09 AM CDT 225 mg Given 12/26/2021 8:03 AM CDT 225 mg documented in this encounter Active and Recently Administered Medications Times are shown in CDT. Scheduled Medication Order 12/26/2021 12/27/2021 12/28/2021 acetaminophen tablet 1,000 mg (TYLENOL) 0803 (Given - Provider: Ketan Alfaro R.N.)1245 (Given - Provider: Ketan Alfaro R.N.)1713 (Given - Provider: Ranjana Roman RCandyN.)2122 (Given - Provider: Francie Pritchett RCandyNCandy) 0808 (Given - Provider: Jenni Bettencourt R.N.)1137 (Not Given - Provider: Yesenia Hawk RLiss - Reason: See Provider Order)1701 (Given - Provider: Burton NavarroNCandy)2056 (Given - Provider: Burton NavarroN.) 0843 (Given - Provider: Lala Rivers R.N.)1327 (Given - Provider: Lala Rivers R.N.) 1,000 mg, oral, 4 times daily, First dos e on Fri12/24/21 at 2100, Not to exceed 4 grams in 24 hours. ceFAZolin in dextrose (iso-os) IVPB 2 g (ANCEF) (CANCE LED) 0539 (New Bag - Provider: Svetlana Núñez RCandyNCandy) 2 g, intravenous, at 200 mL/hr, Administ er over 30 Minutes, Every 8 hours, First dose on Fri12/24/21 at 2200, Continue until drain removal, Drug Monitoring Program: Pharmacist to adjust medication dosi ng based on indication and drug clearanc e factors., Indications: Prophylaxis, surgical hydroCHLOROthiazide tablet 25 mg (HYDRODIURIL) 0803 (G iven - Provider: Ketan Alfaro R.N.) 0809 (Given - Provider: Jenni Bettencourt RLiss) 0843 (Given - Provider: Lala Rivers R.N.) 25 mg, oral, Daily, First dose on Fri12/25/21 at 0900 insulin aspart U-100 (Carbohydrate Count ) injection 0-20 Units (NovoLOG FlexPen) (CANCELED) 0810 (Given - Provider: Dorian Yancey)1242 (Given - Provider: Ketan Alfaro R.N.) 0-20 Units, subcutaneous, 3 times daily with meals, First dose on Fri12/25/21 at 0845, Simple or Complex Ratio: Simple, Carb Ratio - Simple (1 unit per __ grams of carbohydrates): 10 insulin aspart U-100 (Carbohydrate Count ) injection 0-20 Units (NovoLOG FlexPen) 1742 (Given - Provider: Ranjana Roman R.N.) 0917 (G iven - Provider: Ang Lopez R.N.)1341 (Given - Provider: Yesenia Hawk R.N.)1802 (Given - Provider: Toyin Wagner R.N.) 0837 (Given - Provider: Lala Rivers R.N.)1330 (Given - Provider: Lala Rivers R.N. - Comment: just finished lunch) 0-20 Units, subcutaneous, 3 times daily with meals, First dose (after last modification) on Fri12/26/21 at 1700, Simple or Complex Ratio: Simple, Carb Ratio - Simple (1 unit per __ grams of carbohydrates): 8 insulin aspart U-100 injection 0-13 Units (NovoLOG Fle xPen) 0808 (Given - Provider: Ketan Alfaro R.N. - Comment: bg 245)1238 (Given - Provider: Ketan Alfaro R.N. - Comment: bg [phone])1743 (Given - Provider: Ranjana Roman RLiss) 0758 (Given - Provider: Jenni Bettencourt R.N. - Comment: RMG 210)1342 (Given - Provider: Yesenia Hawk R.N.)1800 (Given - Provider: Toyin Wagner RLiss) 0836 (Given - Provider: Lala Rivers R.N.)1328 (Given - Provider: Lala Rivers R.N. - Comment: just finished lunch) 0-13 Units, subcutaneous, 3 times daily, First dose on Fri12/25/21 at 0845, Insulin Scale: Moderate Correction Scale, 140 - 179: 2 units, 180 - 219: 4 units, 220 - 259: 6 units, 260 - 299: 8 units, 300 - 339: 10 units, 340 - 379: 12 units, 3 80 - 399: 13 units, Greater than 399: Call service writing Insulin orders insulin aspart U-100 injection 0-7 Units (NovoLOG Flex Pen) 2120 (Not Given - Provider: Francie Pritchett RCandyN. - Reason: Order parameters not met) 2101 (Not Given - Provider: Toyin Wagner RCandyNCandy - Reason: Order parameters not met - Comment: 168) 0-7 Units, subcutaneous, Daily at bedtim e, First dose on Fri12/25/21 at 2100, Insulin Scale: Modified Bedtime Correction Scale, 220-259: 3 units, 260-299: 4 units, 300-339: 5 units, 340-379: 6 units, 3 80-399: 7 units, Greater than 399: Call service writing insulin orders insulin aspart U-100 injection 0-7 Units (NovoLOG FlexPen) 0235 (Given - Provider: Francie Pritchett, R.N.) 0320 (Not Given - Provider: Mitzy chu, R.N. - Reason: Patient/family refused) 0-7 Units, subcutaneous, Every 24 hours, First dose on Fri12/27/21 at 0200, Insulin Scale: Mild Correction Scale, 180 - 219: 2 units, 220 - 259: 3 units, 260 - 299: 4 units, 300 - 339: 5 units, 340 - 3 79: 6 units, 380 - 399: 7 units, Greater than 399: Call service writing Insulin orders insulin glargine injection 20 Units (CANCELED) 0835 (G iven - Provider: Ketan Alfaro R.N.) 20 Units, subcutaneous, Every morning, F irst dose (after last modification) on Fri12/26/21 at 0900 insulin glargine injection 22 Units 0816 (Given - Provider: Jenni Bettencourt, R.N.) 0853 (Given - Provider: Lala Rivers R.N.) 22 Units, subcutaneous, Every morning, F irst dose (after last modification) on Fri12/27/21 at 0900 polyethylene glycol powder packet 17 g (MIRALAX) 0804 (Given - Provider: Ketan Alfaro R.N.) 0810 (Not Given - Provider: Jenni plascencia RCandyNCandy - Reason: Patient/family refused)1137 (Given - Provider: Yesenia Hawk R.N.) 0842 (Given - Provider: Lala Rivers R.N.) 17 g, oral, Daily, First dose on 02/05 at 0900, Constipation, hold for loose stools Avoid mixing with starch-based thickened liquids., Indications: constipation pramipexole tablet 0.25 mg (MIRAPEX) 2121 (Given - Pro vider: Francie Pritchett R.N.) 2055 (Given - Provider: Toyin Wagner R.N.) 0.25 mg, oral, Daily at bedtime, First d ose (after last modification) on Fri12/26/21 at 2100 pramipexole tablet 0.375 mg (MIRAPEX) 1746 (Given - Pr ovider: Ranjana Roman RCandyNCandy) 1340 (Given - Provider: Yesenia Hawk R.N.) 1334 ( Given - Provider: Lala Rivers R.N.) 0.375 mg, oral, Every evening, First dose on Fri12/26/21 at 180 0 pregabalin capsule 100 mg (LYRICA) 1340 (Given - Provider: Yesenia Hawk R.N.) 1327 (Given - Provider: Lala Rivers R.N.) 100 mg, oral, Daily, First dose on Fri12/27/21 at 1400 pregabalin capsule 150 mg (LYRICA) 0803 (Given - Provi vanessa: Ketan lAfaro R.N.)2121 (Given - Provider: Francie Pritchett R.N.) 0809 (Given - Provider: Jenni Bettencourt R.N.)2055 (Given - Provider: Toyin Wagner R.N.) 0842 (Given - Provider: Lala Rivers R.N.) 150 mg, oral, 2 times daily, First dose on Fri12/25/21 at 0900 sennosides-docusate sodium 8.6-50 mg per tablet 1 tabl et (SENOKOT-S) 08 (Given - Provider: Ketan Alfaro R.N.)2121 (Given - Provider: Francie Pritchett R.N.) 08 (Given - Provider: Jenni Bettencourt R.N.)2056 (Given - Provider: Toyin Wagner R.N.) 0843 (Given - Provider: Lala Rivers R.N.) 1 tablet, oral, 2 times daily, First dos e on Fri12/24/21 at 2100, For constipation. Hold for diarrhea. venlafaxine XR 24 hr capsule 225 mg (EFFEXOR-XR) 802 (Given - Provider: Ketan Alfaro R.N.) 08 (Given - Provider: Jenni Bettencourt R.N.) 0842 (Given - Provider: Lala Rivers R.N.) 225 mg, oral, Daily, First dose on Fri at 0900, Swallow whole. Do NOT crush, chew or open capsule. PRN Medication Order 12/26/2021 12/27/2021 12/28/2021 bisacodyL suppository 10 mg (DULCOLAX) 1 341 (Not Given - Provider: Yesenia Hawk R.N. - Reason: See Provider Order - Comment: miralax successful) 10 mg, rectal, Daily PRN, constipation, Starting on Fri12/24/21 at 1831, Ordered sequence of administration: polyethylene glycol, then bisacodyl until BM achieved. calcium carbonate chewable tablet 400 mg of calcium (TUMS) 400 mg of calcium, oral, 4 times daily P RN, heartburn, indigestion, Starting on Fri12/24/21 at 1831, Doses listed are in mg of elemental calcium. Take with food. 500 mg calcium carbonate contains 200 mg of elemental calcium. diazePAM tablet 5 mg (VALIUM) 0536 (Given - Prov ider: Francie Pritchett R.N.) 5 mg, oral, 3 times daily PRN, muscle spasms, Starting on 12/25/21 at 0600 HYDROmorphone (PF) injection 0.2 mg (DILAUDID) 0.2 mg, intravenous, As needed, severe p ain or score 7-10 of 10, Starting on Fri12/24/21 at 1831, For 3 doses, Administer every 20 minutes as needed for pain greater than or equal to 7. Maximum of 3 doses. magnesium hydroxide suspension 30 mL (MILK OF MAGNESIA) 30 mL, oral, Daily PRN, constipation, St arting on Fri12/24/21 at 1831, Give if no bowel movement by post-operative day 3. menthol lozenge 1 lozenge 1 lozenge, oral, As needed, sore throat, Starting on Fri2 2 at 1831 naloxone injection 0.2 mg (NARCAN) 0.2 mg, intravenous, As needed, respirat ory depression, Starting on Fri12/24/21 at 183, For RASS Score -4 or less, respiratory rate of less than 8 breaths/min. Notify provider/service and rapid response team (if available at institution). oxyCODONE IR tablet 10 mg (ROXICODONE)(Linked Group 1) 0312 (Given - Provider: Svetlana Núñez R.N.)0800 (Given - Provider: Ketan Alfaro, R.N.)1247 (Not Given - Provider: Ketan Alfaro R.N. - Reason: Patient/family refused)1313 (See Alternative - Provider: Ketan Alfaro R.N.) 0233 (Given - Provider: Francie Pritchett R.N.)0755 (Given - Provider: Jenni Bettencourt R.N.) 0048 (Given - Provider: Mitzy Almaguer, R.N.)0609 (Given - Provider: Mitzy Almaguer, R.N.)1453 (Given - Provider: Lala Rivers R.N.) 10 mg, oral, Every 4 hours PRN, severe p ain or score 7-10 of 10, or pain greater than comfort goal if other analgesics fail, Starting on Fri12/24/21 at 1831, Maximum dose of 10 mg in 4 hours 1852 (Given - Provider: Ranjana Roman R.N.) oxyCODONE IR tablet 5 mg (ROXICODONE)(Linked Group 1) 0312 (See Alternative - Provider: Svetlana Núñez R.N.)0800 (See Alternative - Provider: Ketan Alfaro RCandyN.)1247 (See Alternative - Provider: Burton YanceyN.)1313 (Given - Provider: Ketan Alfaro R.N.) 0233 (See Alternative - Provider: Francie Pritchett R.N.)0755 (See Alternative - Provider: Jenni Bettencourt R.N.) 0048 (See Alternative - Provider: Mitzy Almaguer R.N.)0609 (See Alternative - Provider: Mitzy Almaguer R.N.)1453 (See Alternative - Provider: Lala Rivers RCandyNCandy) 5 mg, oral, Every 4 hours PRN, moderate pain or score 4-6 of 10, if other analgesics fail, Starting on Fri12/24/21 at 1831, Maximum dose of 10 mg in 4 hours 1852 (See Alternative - Provider: Ranjana Roman RCandyNCandy) traZODone tablet 100 mg (DESYREL) 100 mg, oral, Bedtime PRN, sleep, Starting on Fri12/24/21 at 23 33 Linked Groups Order Group 1: oxyCODONE IR tablet 5 mg (ROXICODONE)Jump to med 5 mg, oral, Every 4 hours PRN, moderate pain or score 4-6 of 10, if other analgesics fail, Starting on Fri12/24/21 at 1831
Maximum dose of 10 mg in 4 hours
Or oxyCODONE IR tablet 10 mg (ROXICODONE)Jump to med 10 mg, oral, Every 4 hours PRN, severe p ain or score 7-10 of 10, or pain greater than comfort goal if other analgesics fail, Starting on Fri12/24/21 at 1831
Maximum dose of 10 mg in 4 hours
documented in this encounter Additional Health Concerns Assessment Noted Time PHQ-9 Depression Total Score: 5 04/29/2016 10:10 AM CS T documented as of this encounter
--- OUTSIDE RECORDS SUMMARY | 2022-01-12 12:32 | XMS_ITS | Clinical Summary ---
:1955 Author Organization [facility] Address [address] [place] [address] Care Team Providers Name Role Phone Unavailable Primary Care Provider Unavailable Source Comments Patient records contain information from all sites at [facility]. For routine questions regarding patient records, call [phone] during business hours, M-F 8:00 AM - 5:00 PM Central Time. Record requests for emergency care only can be directed to [phone] at any time.[facility] Allergies Active Allergy Reactions Severity Noted Date Comments Mupirocin Other (see comments) 09/10/2018 Medications Medication Sig Dispensed Refills Start Date End Date Status multivitamin tablet Take 1 tablet by 0 04/25/2011 Active mouth daily. FSH/FLX/PRIM/CUR/BOR/OM3 Take 1 capsule 0 05/01/2016 Active ,6,9 5 (OMEGA 3-6-9 by mouth daily. FATTY ACIDS ORAL) pramipexole (MIRAPEX) Take 2-3 tablets 0 08/29/2015 Active 0.125 mg tablet by mouth 2 (two) times a day. 3 tabs in the afternoon, 2 tabs at bedtime venlafaxine XR (EFFEXOR Take 1 capsule 0 03/19/2016 Active XR) 150 mg 24 hr capsule by mouth daily. With 75 mg capsule = 225 mg total dose VOLTAREN 1 % gel Apply 4 g 0 12/05/2016 Ac tive topically 4 (four) times a day as needed. hydroCHLOROthiazide Take 25 mg by 0 12/09/2016 Active (for_HYDRODIURIL) 25 mg mouth daily. tablet metFORMIN Take 1,000 mg by 0 01/22/2017 Ac tive (for_GLUCOPHAGE) 500 mg mouth 2 (two) tablet times a day with meals. nystatin Apply 1 0 10/30/2016 Active (for_MYCOSTATIN) 100,000 application unit/gram cream topically 2 (two) times a day as needed. pregabalin (LYRICA) 150 Take 1 capsule 60 capsule 5 03/31/2017 Active mg capsule (150 mg total) by mouth 2 (two) times a day. Additional Information Patient taking differently: 100-150 mg oral 3 times daily, 150 MG IN AM, 100 MG IN AFTERNOON, AND 150 MG IN PM., Reported on 12/24/2021 IRON,CARBONYL/ASCORBIC Take 1 tablet 0 07/20/2015 Active ACID (VITRON-C ORAL) by mouth 2 (two) times a day. traZODone (DESYREL) 100 mg Take 100 mg by 0 02/17/20 20 Active tablet mouth daily. Taking 2 tablets at bedtime ginkgo biloba 40 mg tablet Take 120 mg by 0 Active mouth daily. turmeric root extract 500 Take by mouth 0 Active mg capsule daily. cranberry 400 mg capsule Take 400 mg by 0 10/01/2018 Active mouth daily. co-enzyme Q-10 (CO Q-10) Take 1 capsule 0 04/26/2009 Active 100 mg capsule by mouth daily. venlafaxine XR Take 75 mg by 0 05/25/2020 Active (EFFEXOR-XR) 75 mg 24 hr mouth daily. capsule Take with 150 mg = 225 mg total daily. valACYclovir (VALTREX) 500 0 06/22/2020 Active mg tablet alpha lipoic acid 600 mg Take 600 mg by 0 Active capsule mouth at bedtime. fluticasone propionate Inhale 1 puff 2 0 09/30/2020 Active (FLOVENT HFA) 110 (two) times a mcg/actuation inhaler day. glipiZIDE (GLUCOTROL XL) 5 Take 5 mg by 0 09/03/2021 Active mg 24 hr tablet mouth daily. Xarelto 10 mg tablet Take 10 mg by 0 10/22/2021 Active mouth daily. acetaminophen (TYLENOL) Take 2 tablets 0 12/27/2021 Active 500 mg tablet (1,000 mg total) by mouth 4 (four) times a day. diazePAM (VALIUM) 5 mg Take 1 tablet 10 tablet 0 12/27/2021 Active tablet (5 mg total) by mouth 3 (three) times a day as needed for muscle spasms. oxyCODONE (ROXICODONE) 5 Take 1 tablet 18 tablet 0 12/27/2021 Active mg immediate release (5 mg total) by tabletIndications: Acute mouth every 4 Pain (four) hours as needed for moderate pain or score 4-6 of 10 (if other analgesics fail) Indication: Acute Pain. polyethylene glycol Take 1 packet 0 12/27/2021 Active (MIRALAX) 17 gram powder (17 g total) by packetIndications: mouth daily constipation Indications: constipation. Dissolve each 17 g dose in 240 mLs (8 ounces) of beverage. lancets 4 each daily. 365 each 0 12/28/2021 Activ e alcohol swabs pads, Use as needed 200 each 0 12/28/2021 Active medicated for diabetes control blood glucose ctl Glucose control 1 each 0 12/28/2021 Active high,nml,low solution solution provides an easy way to ensure accurate blood glucose testing. pen needle, diabetic (BD 4 each (4 365 each 0 12/28/2021 Active Ultra-Fine Mini Pen Injection Needle) 31 gauge x 3/16 total) daily. needle blood sugar diagnostic 4 test daily. 365 test 0 12/28/2021 Active strips blood-glucose meter misc Test as 1 each 0 12/28/2021 Active directed for diabetes control. insulin glargine (Lantus Inject 22 Units 15 mL 0 2 Active Solostar U-100 Insulin) under the skin 100 unit/mL (3 mL) every morning. injection insulin aspart U-100 Inject 8 Units 15 mL 0 12/28/2021 Active (NovoLOG Flexpen U-100 under the skin Insulin) 100 unit/mL (3 3 (three) times mL) injection a day with meals. Give 8 units three times daily with meals. Hold if not eating or eating less than 50% of diet. Dose may need further adjustments CALCIUM CARBONATE/VITAMIN Take 1 tablet 0 04/19/2014 100 Discontinued D3 (CALCIUM WITH VITAMIN D by mouth 3 ORAL) (three) times a 22 day. loratadine (for_CLARITIN) Take 1 tablet 0 10/09/200912/15 Discontinued 10 mg tablet by mouth daily. 06/03 ( Stop Taking at 22 Discharge) acyclovir (for_ZOVIRAX) Take by mouth 0 06/16/2008 1 Discontinued 200 mg capsule as needed. 0 22 CONTOUR NEXT STRIPS strips 2 (two) times a 3 018 12/15 Discontinued day. for testing 22 CONTOUR NEXT LEV 2 CONTROL U UTD 0 03/12/2017 Discontinued JONNY solution 22 MICROLET LANCET misc 2 (two) times a 3 04/04/2017 Discontinued day. for testing 22 alcaftadine 0.25 % drops INT 1 DROP IN 0 02/24/201912/15 Discontinued OU D 22 amoxicillin (AMOXIL) 500 Take 2,000 mg 0 1 Discontinued mg capsule by mouth as 06/03 (Stop T aking at directed. 22 Discharge) hydrocortisone (ANUSOL-HC) Insert 25 mg 0 Discontinued 25 mg suppository into the 10/03 (T herapy rectum. 22 completed) ibuprofen (ADVIL,MOTRIN) Take 800 mg by 0 11/17/201812/15 Discontinued 800 mg tablet mouth every 6 06/03 (S top Taking at (six) hours as 22 Disch arge) needed. mecobal-levomefolat Ca-B6 TAKE 1 TABLET 0 03/24/202012/15 Discontinued phos 3-35-2 mg tablet BY MOUTH TWICE 2 0 DAILY 22 carBAMazepine (CARBATROL) Take 1 capsule 180 capsule 3 021 Discontinued 200 mg 12 hr capsule (200 mg total) 10/03 (Therapy by mouth 2 22 Ineffecti ve) (two) times a day. oxyCODONE-acetaminophen Take 1-2 0 06/04/202012/15 Discontinued (PERCOCET) 5-325 mg per tablets by 06/03 (Stop Taking at tablet mouth 3 (three) 22 Disc harge) times a day as needed. meloxicam (MOBIC) 7.5 mg Take 1 tablet 0 02/18/2019 Discontinued tablet by mouth daily. 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 ral 09/23/2017 Fasciitis Plantar 09/23/2017 Bursitis 09/23/2017 Osteoarthritis 09/23/2017 Hypertension Essential Primary 09/23/2017 Restless Leg Syndrome 09/23/2017 Nodule Thyroid 09/23/2017 Eczema 09/23/2017 Tendonitis Achilles Right 07/29/2017 Diabetes Mellitus Type 2 04/15/2017 Diabetes Mellitus Type 2 With Diabetic Neuropathy 03/19 Pain Low Back Unspecified 01/28/2017 Spondylosis Lumbar Without Myelopathy 01/28/2017 Depression Major Recurrent Partial Remission 5 Encounters Date Type Specialty Care Team Description 12/26/2021 Clinical Orthopedic Surgery Javier, Post-op ( Patient Communication Wilmer Lang M.D. had surgery o n Laminoplasty Posterior Cervi caprice C3-7) 12/24/2021 Surgery Javier, LAMINOPLASTY Wilmer Lang M.D. POSTERIOR CERV ICAL C3-7. 12/24/2021 Anesthesia Event Milton Davis M.D. Bailly, Laura C, D.O. 12/24/2021 Hospital Encounter Javier, Myelopath y Cervical (HCC) (Primary Dx); - Wilmer Lang M.D. Decline Functi onal Status [R53.81 (ICD-10-CM)]; 12/28/2021 Diabetes Mellit us Type 2 With Diabetic Neuropathy (HCC) 12/21/2021 Office Visit Orthopedic Surgery Javier, Cervical Disc Wilmer Lang M.D. Disorder With Myelopathy (Marleen skyler Dx) 12/21/2021 Comprehensive Visit Anesthesiology Javier, Preope rative Exam (Primary Dx); Wilmer Lang M.D. Pain Low Back Unspecified; [place], Diabetes Mellit us Type 2 With Diabetic Neuropathy ([facility]); Ernesto Cid M.D. Myelopathy Cer vical ([facility]); Pain Neuropathi c; Hypertension Es sential Primary; Constipation; Spondylosis Lum bar Without Myelopathy; Tendonitis Achi lles Right; Restless Leg Sy ndrome; Anticoagulant T herapy; Embolus Pulmona ry Personal History; Diabetes Mellit us Type 2 ([facility]); Depression Heena r Recurrent Partial Remission ([facility]); Arthroplasty To roberth Knee Replacement Status Post Bilateral; Nodule Thyroid; Body Mass Index 40.0 To 44.9 Adult ([facility]); Obstructive Sle ep Apnea Adult; Smoking Tobacco Use Personal History 12/18/2021 Comprehensive Visit Vascular Medicine Ann-Marie Muller, Embolus Pulmonary Personal History (Primary Dx); P.A.-C. Anticoagulant T herapy; Preoperative Ex am 12/18/2021 Hospital Encounter Radiology Javier, Preoperat shandra Exam Wilmer Lang M.D. 12/18/2021 Hospital Encounter Radiology Javier, Stenosis Spinal Wilmer Lang M.D. Cervical 12/18/2021 Hospital Encounter Radiology Javier, Preoperat shandra Exam Wilmer Lang M.D. 12/04/2021 Documentation Social Work Adrianne Camp L.ICandyC.S.W., M.S.W. 11/26/2021 Telemedicine Spine Gelfman, Myelopathy Cerv ical ([facility]) (Primary Dx); Flynn Chinchilla Stenosis Spina l Cervical; Stenosis Spinal Lumbar With Neurogenic Claudication 11/14/2021 Hospital Encounter Radiology Lia Junior s Spinal R, CNA HHA, Cervical C.N.P., M.S.N. 11/14/2021 Comprehensive Visit Orthopedic Surgery Rachel Kearns rvical Disc Disorder With Myelopathy (Primary Dx); Wilmer Lang M.D. Stenosis Spina l Cervical; Preoperative Ex am; Contact With An d (Suspected) Exposure To COVID-19; Encounter For P reprocedural Laboratory Examination (COVID-19) 11/12/2021 Comprehensive Visit Spine Gelfman, Stenosis Spinal Cervical (Primary Dx); Flynn Chinchilla Radiculopathy Cervical; Spinal Stenosis Lumbar Region Without Neurogenic Claudication 11/09/2021 Clinical Admitting/Central Communication Scheduling from Last 3 Months Immunizations Name Administration Dates Next Due H1N1 All Forms 02/13/2009, 02/06/2009 HZV (ZOSTAVAX) 05/13/2014 HepA Adult 07/23/2006 Influenza (IM) Preservative Free 01/05/2014, 02/15/2013, 08/2011, 12/17/2010, 01/01/2010, 11/30/2008 Influenza Split 12/17/2010 Influenza TIV (IM) 12/30/2006 Influenza, Seasonal, Injectable 12/30/2006 Influenza, Unspecified 01/14/2009, 11/30/2008, 12/30/2006 PPSV23 07/02/2021 SARS-COV-2 (COVID-19) - [place] (J&J) 05/19/2020 Td Preservative Free (TENIVAC, 07/23/2006 DECAVAC) Td, (Adult) Unspecified 07/23/2006 Tdap 06/21/2014 influenza vaccine quad 12/12/2016, 01/11/2016, 01/10/2015 (FLUZONE/FLUARIX) (6 months and older)(PF) Family History Medical History Relation Name Comments Alcohol abuse Brother True Depression Brother True Prostate cancer Brother True Coronary artery disease Father Sunil Ha Diabetes Father Sunil Ha Hypertension Father Sunil Ha Obesity Father Sunil Ha Prostate cancer Father Sunil Ha Breast cancer Mother Swathi ha Diabetes Mother Swathi ha Hypertension Mother Swathi ha Obesity Mother Swathi ha Ovarian cancer Paternal Grandmother Sintia Ha Relation Name Status Comments Brother True Father Sunil Ledesma Prenbrooklynn Mother Swathi ha Paternal Grandmother Sintia Ha Social History Tobacco Use Types Packs/Day Years Used Date Smoking Tobacco: Former Cigarettes 1 15 01/15 - 01/25/1986 Pipe Smokeless Tobacco: [...] or relatives? How often do you attend zoroastrian or Never 2021 zoroastrian services? Do you belong to any clubs or Yes 12/12/2021 organizations such as zoroastrian groups, unions, fraElixr or athletic groups, or school groups? How [...] place to sleep or slept in a usp (including now)? Education Answer Date Recorded What is the highest level of school Master's degree (e.g., M Dago, MS, 07/15/2020 you have completed or the highest Tiara, MEd, CRYPTOANALYSIS TEACHER, ODILIA) degree you have received? Sex Assigned at Date Recorded Female 07/21/2017 2:58 PM CDT Last Filed Vital Signs Vital Sign Reading [...] Mass Index 41.31 12/24/2021 10:31 AM CDT Plan of Treatment Health Maintenance Due Date Last Done Comments CT Colonography 1955 Cologuard 1955 Depression Monitoring (PHQ-9) 1955 Diabetic Office Visit with Foot 1955 Exam Dilated Eye Exam 1955 FIT 1955 Hepatitis C Screening 1955 Urine Albumin 1955 Hepatitis B Vaccines (1 of 3 - 2013 Risk 3-dose series) Colonoscopy 07/04/2013 07/05/2003 Colorectal Cancer Screening 07/04/2013 Zoster Vaccines (2 of 3) 07/08/2014 05/13/2014 Mammogram 02/17/2018 02/17/2017 (Performed elsewhere), 07/16/2011 (Performed elsewhere) Lipid (Cholesterol) Screening 12/09/2019 12/08/2018, 2016 (Performed elsewhere), 07/16/2011 (Performed elsewhere) Hemoglobin A1C 03/20/2022 12/18/2021 Office Visit for Blood Pressure 12/21/2022 12/21/2021 Check / Re-check Creatinine Level 12/24/2022 12/24/2021, 12/18/2021, 01/07/2019, Additional history exists Potassium Level 12/24/2022 12/24/2021, 12/18/2021, 01/07/2019, Additional history exists Sodium Level 12/24/2022 12/24/2021, 12/24/2021, 12/18/2021, Additional history exists DTaP,Tdap,and Td Vaccines (2 - Td 06/21/2024 06/21/2014, , or Tdap) 07/23/2006 Cervical Cancer Screening Discontinued 03/18/2016 (Performed elsewhere), 07/16/2011 (Performed elsewhere) Pneumococcal vaccine (65+ years) Completed 07/02/2021, 10/2019 COVID-19 Vaccine Completed 12/11/2021, 02/07/2021, 05/19/2020 Bone Density Scan (Osteoporosis Discontinued 12/18/2021 Screen) Influenza Vaccine Completed 12/20/2021, 01/03/2021, 01/03/2021, Additional history exists Fall Risk Screen (Annual) Completed 12/24/2021 Medical Devices Implanted Type Area Roving Winder Device Shelf Model / Identifier Expiration Serial / Date Lot Miniplate Double Bend mm Spacing Hardware N/A: Posterior Depuy Synt hes [id number] / Implanted: Qty: 3 on 12/24/2021 by Wilmer Patrick M.D. at [facility] e.g. Cervical / pins/screws /rods Sigma Post Stab.W Lug Fem Sz 5 Rt - Gallo [id number] Knee Other/Legacy - Stephen & Implanted: Qty: 1 on 12/18/2011 Implant See Implant [employer] Description: Device Roving Winder - [employer]. Body Location - Other. Right. Device Status Text - KNEE [id number]. Cement Bone Large - Gallo [id number] Misc Other Shanna Implanted: Qty: 1 on 12/18/2011 Description: Device Roving Winder - Stryk er Mariama.. Device Status Text - [id number]. Procedures Procedure Name Priority Date/Time Associated Comments [...] procedure are i n the results section. LDA ANE ARTERIAL Routine 12/24/2021 12:59 Results for this LINE INSERTION PM CDT procedure are in the results section. UT ARTL CATH/CNULA Routine 12/24/2021 12:59 Resul ts for this MONITOR PERC PM CDT procedure are i n the results section. LDA ANE Routine 12/24/2021 12:47 Results for this ENDOTRACHEAL AIRWAY PM CDT procedur e are in the results section. 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 IONM - EMG Routine 12/24/2021 9:59 Results for AM CDT this procedure are in the results section. ECG Routine 12/21/2021 11:21 Pain Low Back Results fo r AM CDT Unspecified this procedure Diabetes Mellitus are in the Type 2 With results Diabetic section. Neuropathy (HCC) Myelopathy Cervical (HCC) Pain Neuropathic Hypertension Essential Primar y Constipation Spondylosis Lumbar Without Myelopat hy Tendonitis Achilles Right Restless Leg Syndrome Anticoagulant Therapy Embolus Pulmonary Personal History Diabetes Mellitus Type 2 (HCC) Depression Major Recurrent Partial Remission (HCC) Arthroplasty Total Knee Replacement Status Post Bilateral Nodule Thyroid Preoperative Exam DX CERVICAL SPINE RAD - Routine 12/18/2021 2:17 Preoperative Exam R esults for 4-5 VIEWS (most inpatients PM CDT this proced ure and all are in the outpatients) results section. CT CERVICAL SPINE RAD - Routine 12/18/2021 1:02 Stenosis Spinal Res ults for WITHOUT IV CONTRAST (most inpatients PM CDT Cervical this procedure and all are in the outpatients) results section. COMPREHENSIVE Routine 12/18/2021 12:28 Preoperative Exam Resul ts for METABOLIC PANEL, S/P PM CDT this pr ocedure are in the results section. ACTIVATED PARTIAL Routine 12/18/2021 12:28 Preoperative Exam R esults for THROMBOPLASTIN TIME PM CDT this pro cedure (APTT), P are in the results section. 25-HYDROXYVITAMIN D2 Routine 12/18/2021 12:28 Preoperative Exa m Results for AND D3, S PM CDT this procedure are in the results section. TYPE AND SCREEN Routine 12/18/2021 12:28 Preoperative Exam Res ults for PM CDT this procedure are in the results section. HEMOGLOBIN A1C, B Routine 12/18/2021 12:28 Preoperative Exam R esults for PM CDT this procedure are in the results section. PROTHROMBIN TIME Routine 12/18/2021 12:28 Preoperative Exam Re sults for (PT), P PM CDT this procedure are in the results section. CBC WITH Routine 12/18/2021 12:28 Preoperative Exam Result s for DIFFERENTIAL, B PM CDT this procedu re are in the results section. BMD BONE DENSITY RAD - Routine 12/18/2021 12:24 Preoperative Exam R esults for SPINE HIPS (most inpatients PM CDT this proced ure and all are in the outpatients) results section. MR CERVICAL SPINE RAD - Routine 11/14/2021 2:49 Stenosis Spinal Res ults for WITHOUT IV CONTRAST (most inpatients PM CDT Cervical this procedure and all are in the outpatients) results section. from Last 3 Months Results (ABNORMAL) Glucose, POCT (12/28/2021 12:13 PM CDT)Only the most recent of35 resultswithin the time period is included. Analysis Performed At Patho logist Time Signature Glucose, POCT, 195 (H) 70 [...] Address City/State/ZIP Code Phon e Number POC [facility] [address] [place] [address] [place] [address] [facility] [address] DX Cervical Spine 2-3 Views (12/25/2021 5:39 [...] ??DX CERVICAL SPINE 2-3 VIEWS Procedure Note Scarlett Hartman M.D. - 12/25/2021Formatt ing of this note might be different from the original. EXAM: DX CERVICAL SPINE 2-3 VIEWS IMPRESSION: Postoperative changes of the cervical sp ine. There is an overlying surgical drain. 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 Minimal anterolisthesis of C2 on C3. Abdon [facility] PROCE DURES (ABNORMAL) CBC without Differential (12/24/2021 8:41 PM CDT) [facility] Method Time Signature Hemoglobin 14.3 11.6 - [...] Laterality Blood (Blood, 12/24/2021 8:41 PM 12/25/19 9:23 Venous) CDT PM CDT Abdon Gill M.D. LAB BLOOD ADD-ON Performing Organization Address City/State/ZIP Code Phon e Number [facility] - [address] [place], [place] [address] [facility] [place] [address] [facility] [address] [facility] (ABNORMAL) Basic Metabolic Panel (12/24/2021 8:41 PM CDT) athologist Signature Potassium, S 4.1 3.6 - [...] Blood (Blood, 12/24/2021 8:41 PM 12/25/19 22 9:44 Venous) CDT PM CDT Abdon Gill M.D. LAB BLOOD ADD-ON Performing Organization Address City/[facility]/ZIP Code Phon e Number [facility] - [address] [place], [place] [address] [facility] [place] [address] [place] Fluoro Less Than 1 Hour (12/24/2021 [...] M.D. IMG FLUOROSCOPY PROCEDURES Performing Organization Address [facility]/ZIP Code Phon e Number 152 HOS LOS [...] LAB BLOOD NON ADD-ON Performing Organization Address City/[facility]/ZIP Code Phon e Number [facility] - [address] [place], [place] [address] [facility] [place] [address] Sodium, B (12/24/2021 2:57 PM CDT) athologist Signature Sodium, B 135 135 - 145 12/24/2021 2:58 STMA mmol/L PM CDT Specimen Anatomical Collection Method Collection Time Receive d Time (Source) Location / / Volume Laterality Blood (Blood, 12/24/2021 2:57 PM 12/25/19 2:57 Arterial Line) CDT PM CDT Milton Davis M.D. LAB BLOOD NON ADD-ON Performing Organization Address City/[facility] Phon e Number [facility] - [address] [place], [place] [address] [facility] [place] [address] (ABNORMAL) Blood Gas with Coox, Arterial [...] LAB BLOOD NON ADD-ON Performing Organization Address City/State/[facility] Code Phon e Number [facility] - [address] [place], [place] [address] [facility] [place] [address] [facility] [address] [facility] Potassium, Blood (12/24/2021 2:57 PM CDT) P athologist Signature Potassium, B 3.7 3.6 - 5.2 12/24/2021 [facility] mmol/L 2:58 PM CDT Specimen Anatomical Collection Method Collection Time Receive d Time (Source) Location / / Volume Laterality Blood (Blood, 12/24/2021 2:57 PM 12/25/19 2:57 Arterial Line) CDT PM CDT Milton Davis M.D. LAB BLOOD NON ADD-ON Performing Organization Address City/State/ZIP Code Phon e Number [facility] - [address] [place], [place] [address] [place] [address] [facility] [address] [facility] (ABNORMAL) Glucose, Whole Blood (12/24/2021 2:57 PM CDT) athologist Signature Glucose 231 (H) 70 - 140 12/24/2021 STMA mg/dL 2:58 PM CDT Specimen Anatomical Collection Method Collection Time Receive d Time (Source) Location / / Volume Laterality Blood (Blood, 12/24/2021 2:57 PM 12/25/19 2:57 Arterial Line) CDT PM CDT Milton Davis M.D. LAB BLOOD TROPONIN Performing Organization Address City/[facility]/ZIP Code Phon e Number [facility] - [address] [place], [place] [address] [facility] [place] [address] [place] [address] [address] [facility] Calcium, Ionized (12/24/2021 2:57 PM CDT) athologist [...] Address City/State/ZIP Code Phon e Number [facility] - [address] [place], [place] [address] [facility] [place] [place] [address] [place] [address] [address] [facility] UT ARTL CATH/CNULA MONITOR PERC, LDA ANE ARTERIAL LINE INSERTION (12/24/2021 12:59 PM CDT) Narrative Milton Davis M.D. - 12/24/2021 12: 59 PM CDT Svetlana Hastings D.O. ? 12/24/2021 ??1:07 PM Invasive Catheter Date/Time: 12/24/2021 12:59 PM Performed by: Svetlana Hastings D.O. Authorized by: Milton Davis M.D. Location: OR PROCEDURE DETAILS: Line type: arterial ?? Laterality: left Location: radial Location details: new site ? Age group: adult Catheter diameter: 20 Ga Technique: palpation ?? Monitored: yes ?? Number of attempts: 1 UNIVERSAL PROTOCOL All relevant documentation and testing w ere reviewed and available. All required blood products, implants, devic es and or special equipment were made available as applicable. Pre-proced ure verification was conducted and the correct site was marked if required. A fire risk assessment was done as applicable. The procedural time-out t o verify correct patient, correct side/site, and procedure was conducted p rior to performing the procedure and confirmed in a procedural pause. PRE-PROCEDURE DETAILS: Appropriate hand hygiene, gown, cap, mas k, protective eyewear, sterile gloves, skin preparation, sterile drape, and strict aseptic technique were utilized as applicable for the procedure .: yes ?? Skin preparation: chlorhexidine ?? SEDATION / ANESTHESIA Anesthesia method: anesthesia POST-PROCEDURE DETAILS: Procedure completed successfully: yes ?? Line secured: secured with sutureless de vice Chlorhexidine disc around insertion site and under catheter with slight turn: yes ?? Complications - arterial: none ATTESTATION STATEMENT A resident or fellow participated in the procedure, and the sales support consultant was present for the entire procedure. Milton Davis M.D. PROCEDURE/MINOR SURGICAL ORD ERABLES LDA ANE ENDOTRACHEAL AIRWAY (12/24/2021 12:47 PM CDT) Narrative Milton Davis M.D. - 12/24/2021 12: 47 PM CDT Milton Davis M.D. ? 12/24/2021 ??4:57 PM Airway Date/Time: 12/24/2021 12:47 PM Performed by: Milton Davis M.D. Authorized by: Milton Davis M.D. Patient location during procedure: OR / Procedure Area PROCEDURE DETAILS: Mask difficulty assessment: easy mask Final airway type: video laryngoscope Laryngeal Manipulation: no ?? Final best view of glottic structures - Cormack/Lehane Score: grade 2A ETT location: oral VL device: glide scope [facility] scope blade size: 3 Adult tube size: 7 Adult ETT distance at teeth/gum: 22 Oral tube type: standard ETT Cuffed: yes Number of attempt to successful placemen t: 1 Airway confirmation: bilateral breath so unds, positive ETCO2 and bilateral chest rise Other previous techniques attempted: non e PRE PROCEDURE DETAILS: Pre evaluation for airway management: pr ocedure Urgency: elective Preoxygenation: bag valve mask SEDATION / ANESTHESIA Anesthesia method: anesthesia POST PROCEDURE DETAILS: ? Procedure outcome: successful ?? Airway event: no complications Milton Davis M.D. ANESTHESIA ORDERABLES IONM - EMG (12/24/2021 9:59 AM CDT) Specimen (Source) Anatomical Collection Method Collection Time Re ceived Time Location / / Volume Laterality 12/24/2021 10:00 AM CDT Narrative [facility] - 12/24/2021 3:40 PM CDT Table formatting from the original result was not included. 24-Dec-2021 ? Intraopera tive Monitoring ? Final Report Study Number: 2 EMG School Aide: Indra Mallory . 127 or [phone] Referred by: WILMER KEARNS (127 or [phone]) Referred for: Referral Code: ?1957 RX: 1958 SUMMARY: Somatosensory evoked potentials (SEPs), transcranial electric [...] surg ical suite. Geri Mallory (127 or [phone])/[facility] Surgery ? Staff Minutes Start-DateTime End-DateTim e Remote Simultaneous Supervision 131 12/15 13:02 PM NURSING CONSULTANT 12/24/2021 15:13 PM NURSING CONSULTANT Remote Exclusive (1:1) Supervision 0 12/2021 00:00 AM NURSING CONSULTANT 12/24/2021 00:00 AM NURSING CONSULTANT In-Room Exclusive (1:1) Supervision 0 00:00 AM NURSING CONSULTANT 12/24/2021 00:00 AM NURSING CONSULTANT Total Monitoring Time: 131 ?? This interpretation has been electron ically signed: Indra Mallory MD at 12/24/2021 3:16:44 PM CDT Procedure Note Indra Mallory M.D. - 12/24/2021Formatt ing of this note is different from the original. 24-Dec-2021 Intraoperative Monitoring Fi nal Report Study Number: 2 EMG School Aide: Indra Mallory . 127 or [phone] Referred by: WILMER KEARNS (127 or [phone]) Referred for: Referral Code: 1957 RX: 1957 SUMMARY: Somatosensory evoked potentials (SEPs), [...] surg ical suite. Geri Mallory (127 or [phone])/[facility] Surgery Staff Minutes Start-DateTime End-DateTim e Remote Simultaneous Supervision 131 12/15 13:02 PM NURSING CONSULTANT 12/24/2021 15:13 PM NURSING CONSULTANT Remote Exclusive (1:1) Supervision 0 12/2021 00:00 AM NURSING CONSULTANT 12/24/2021 00:00 AM NURSING CONSULTANT In-Room Exclusive (1:1) Supervision 0 00:00 AM NURSING CONSULTANT 12/24/2021 00:00 AM NURSING CONSULTANT Total Monitoring Time: 131 This interpretation has been electron ically signed: Indra Mallory MD at 12/24/2021 3:16:44 PM CDT Wilmer Kearns M.D. NEUROLOGY ORDERABLES Performing Organization Address City/State/ZIP Code Phon e Number EMG ECG 12 Lead (12/21/2021 11:21 AM CDT) P athologist Signature Ventricular Rate 72 BPM MUSE ECG/Min UT Interval 180 ms MUSE QRSD Interval 100 ms MUSE QT Interval 382 ms MUSE QTC Interval 418 ms MUSE P [place] 1 degrees MUSE R [place] -16 degrees MUSE T Wave [place] 26 degrees MUSE Specimen Anatomical Collection Method Collection Time Receive d Time (Source) Location / / Volume Laterality 12/21/2021 11:21 12/21/2021 AM CDT 11:56 AM CDT Impressions MUSE - 12/21/2021 11:45 AM CDT Normal sinus rhythm Low anterior forces Minimal voltage criteria for LVH, may be normal variant When compared with ECG of 09-DEC-2011 12 :38, No significant change was found Reviewed by JAIR Richardson Narrative This result has an attachment that is no t available. Procedure Note Ronni Hector M.D. - 12/21/2021Formatt ing of this note might be different from the original. IMPRESSION: Normal sinus rhythm Low anterior forces Minimal voltage criteria for LVH, may be normal variant When compared with ECG of 09-DEC-2011 12 :38, No significant change was found Reviewed by JAIR Richardson Ernesto Hart M.D. ECG ORDERABLES Performing Organization Address City/State/ZIP Code Phon e Number MUSE MUSE NA DX Cervical Spine 4-5 Views (12/18/2021 2:17 PM CDT) Anatomical Region Laterality Modality Cervical Spine, Musculoskeletal RST LOS, N/A Digital Radiography Neuroradiology ARZ LOS, Muskuloskeletal FLA LOS Specimen (Source) Anatomical Collection Method Collection Time Re ceived Time Location / / Volume Laterality 12/18/2021 2:46 PM CDT Impressions 12/18/2021 2:47 PM CDT Cervical spondylotic change with disk space narrowing greatest at C5-C6. Minimal anterolisthesis C2 on C3. Minimal retrol isthesis C5 on C6. C2 on C3 anterolisthesis slightly increases in flexion. Narrative 12/18/2021 2:47 PM CDT EXAM: ??DX CERVICAL SPINE 4-5 VIEWS Procedure Note Scooby Acuña M.D. - 12/18/2021Forma tting of this note might be different from the original. EXAM: DX CERVICAL SPINE 4-5 VIEWS IMPRESSION: Cervical spondylotic change with disk sp giselle narrowing greatest at C5-C6. Minimal anterolisthesis C2 on C3. Minimal retrol isthesis C5 on C6. C2 on C3 anterolisthesis slightly increases in flexion. Authorizing Provider Result [facility] PROCE JENIFFERES CT Cervical Spine without IV Contrast (12/18/2021 1:02 PM CDT) Anatomical Region Laterality Modality Cervical Spine, Neuroradiology RST LOS, N/A Computed Tomography, Computed Neuroradiology ARZ LOS, Neuroradiology T omography FLA LOS Specimen (Source) Anatomical Collection Method Collection Time Re ceived Time Location / / Volume Laterality 12/18/2021 1:13 PM CDT Impressions 12/18/2021 1:21 PM CDT 1. Multilevel cervical spondylosis as detailed. No significant interval change since MRI performed 11/14/2021. 2. Hypoattenuating 2.1 cm nodule within the posterior right thyroid lobe demonstrates stability but remains technically indeterminate. Dedic ated thyroid ultrasound is recommended if clinically appropriate. Narrative 12/18/2021 1:21 PM CDT EXAM: CT CERVICAL SPINE WITHOUT IV CONTRAST COMPARISON: Cervical spine MRI 2. CT cervical spine 06/05/2015 FINDINGS: Loss of the normal cervical lo rdosis may be positional. Slight anterolisthesis C2-C4. Moderate cervical spondylosis greatest f rom C5-C7. Combination of findings from C4 through C7 including posterior disc osteophyte comp lexes, degenerative hypertrophic uncovertebral facet arthropathy, ligamentous thickening resu lt in similar multilevel narrowing of the cervical spinal canal. Overall degree appears grossly un changed and was better evaluated on recent comparison cervical spine MRI. Additional prominent calcified disc bulge at T1-T2. Multilevel foraminal narrowing on the ba sis of degenerative uncovertebral and cervical facet facet arthropathy including moderate right C2- C3, mild right C3-C4, mild left and advanced right C4-C5, moderate left and advanced right C5-C6, advanced bilateral C6-C7, and mild left and moderate right C7-T1. Additional mild to moderate todd inal narrowing within the visualized upper thoracic spine. Small focal sclerosis within the spinous process of C3, minimally enlarged since 06/05/2015, compatible with a benign enostosis. Hypo attenuating 2.1 x 2.0 lesion within the posterior right thyroid lobe with internal foci of calci fication demonstrates stability dating back to 06/05/2015 but is technically indeterminate. Procedure Note Simon Moore M.D. - 12/18/2021Format ting of this note might be different from the original. EXAM: CT CERVICAL SPINE WITHOUT IV CONTR AST COMPARISON: Cervical spine MRI 2. CT cervical spine 06/05/2015 FINDINGS: Loss of the normal cervical lo rdosis may be positional. Slight anterolisthesis C2-C4. Moderate cervical spondylosis greatest f rom C5-C7. Combination of findings from C4 through C7 including posterior disc osteophyte comp lexes, degenerative hypertrophic uncovertebral facet arthropathy, ligamentous thickening resu lt in similar multilevel narrowing of the cervical spinal canal. Overall degree appears grossly un changed and was better evaluated on recent comparison cervical spine MRI. Additional prominent calcified disc bulge at T1-T2. Multilevel foraminal narrowing on the ba sis of degenerative uncovertebral and cervical facet facet arthropathy including moderate right C2- C3, mild right C3-C4, mild left and advanced right C4-C5, moderate left and advanced right C5-C6, advanced bilateral C6-C7, and mild left and moderate right C7-T1. Additional mild to moderate todd inal narrowing within the visualized upper thoracic spine. Small focal sclerosis within the spinous process of C3, minimally enlarged since 06/05/2015, compatible with a benign enostosis. Hypo attenuating 2.1 x 2.0 lesion within the posterior right thyroid lobe with internal foci of calci fication demonstrates stability dating back to 06/05/2015 but is technically indeterminate. IMPRESSION: 1. Multilevel cervical spondylosis as de tailed. No significant interval change since MRI performed 11/14/2021. 2. Hypoattenuating 2.1 cm nodule within the posterior right thyroid lobe demonstrates stability but remains technically indeterminate. Dedic ated thyroid ultrasound is recommended if clinically appropriate. Wilmer Kearns M.D. IMDomingo CT PROCEDURES 25-Hydroxyvitamin D2 and D3 (12/18/2021 12:28 PM CDT) athologist Signature 25-Hydroxy D2 <4.0 ng/mL 12/20/2021 SDSC 8:04 AM CDT 25-Hydroxy D3 36 ng/mL 12/20/2021 SDSC 8:04 AM CDT 25-Hydroxy D 36 ng/mL 12/20/2021 SDSC Total 8:04 AM CDT Comment: ----REFERENCE VALUE---- 25-HYDROXY D TOTAL (D2+D3) Optimum level s in the healthy population are 20-50, patients with bone disease may benefit from higher levels within this r pierre. ----ADDITIONAL INFORMATION---- This test was developed and its performa nce characteristics determined by [facility] in a manner consistent with CLIA requirements. This test has not been cleared or approved by the U.S. Vira d and Drug Administration. Specimen Anatomical Collection Method Collection Time Receive d Time (Source) Location / / Volume Laterality Blood (Blood, 12/18/2021 12:28 12/19/2021 7:23 Venous) PM CDT AM CDT Wilmer Kearns M.D. LAB BLOOD ADD-ON Performing Organization Address City/[facility] Phon e Number [address] PRATHER [place], [place] [address] [place], [place] [id number] [place] [address] Dr. PRATHER APTT (Activated Partial Thromboplastin Time) (12/18/2021 12:28 PM CDT) P athologist Signature Activated 34 25 - 37 sec 12/18/2021 DTL Partial 1:23 PM CDT Thrombopl Time, P Specimen Anatomical Collection Method Collection Time Receive d Time (Source) Location / / Volume Laterality Blood (Blood, 12/18/2021 12:28 12/18/2021 Venous) PM CDT 12:38 PM CDT Wilmer Kearns M.D. LAB BLOOD ADD-ON Performing Organization Address City/[facility] Code Phon e Number [facility] [address] [place], [place] [address] [place], [place] [phone] [place] [address] Prothrombin Time (PT) (12/18/2021 12:28 PM CDT) P athologist Signature Prothrombin 12.3 9.4 - 12.5 12/18/2021 DTL Time, P sec 1:23 PM CDT INR 1.1 0.9 - 1.1 12/18/2021 DTL 1:23 PM CDT Comment: ----ADDITIONAL INFORMATION---- Standard intensity warfarin therapeutic range: 2.0 to 3.0 ?? High intensity warfarin therapeutic rang e: 2.5 to 3.5 Specimen Anatomical Collection Method Collection Time Receive d Time (Source) Location / / Volume Laterality Blood (Blood, 12/18/2021 12:28 12/18/2021 Venous) PM CDT 12:38 PM CDT Wilmer Kearns M.D. LAB BLOOD ADD-ON Performing Organization Address City/State/ZIP Code Phon e Number [facility] - [address] [place], [place] [address] [facility] [place] [address] [facility] [address] (ABNORMAL) CBC with Differential, Blood (12/18/2021 12:28 PM CDT) [facility] Method Time Signature Hemoglobin 14.8 11.6 - 12/18/2021 DHPM 15.0 g/dL 1:57 PM CDT Hematocrit 45.9 (H) 35.5 - 12/18/2021 DHPM 44.9 % 1:57 PM CDT Erythrocytes 5.23 (H) 3.92 - 12/18/2021 DHPM 5.13 1:57 PM CDT x10(12)/L MCV 87.8 78.2 - 12/18/2021 DHPM 97.9 fL 1:57 PM CDT RBC Distrib Width 14.6 12.2 - 12/18/2021 DHPM 16.1 % 1:57 PM CDT Platelet Count 340 157 - 371 12/18/2021 DHPM x10(9)/L 1:57 PM CDT Leukocytes 11.6 (H) 3.4 - 9.6 12/18/2021 DHPM x10(9)/L 1:57 PM CDT Neutrophils 7.39 (H) 1.56 - 12/18/2021 DHPM 6.45 1:57 PM CDT x10(9)/L Lymphocytes 3.16 (H) 0.95 - 12/18/2021 DHPM 3.07 1:57 PM CDT x10(9)/L Monocytes 0.72 0.26 - 12/18/2021 DHPM 0.81 1:57 PM CDT x10(9)/L Eosinophils 0.23 0.03 - 12/18/2021 DHPM 0.48 1:57 PM CDT x10(9)/L Basophils 0.10 (H) 0.01 - 12/18/2021 DHPM 0.08 1:57 PM CDT x10(9)/L Specimen Anatomical Collection Method Collection Time Receive d Time (Source) Location / / Volume Laterality Blood (Blood, 12/18/2021 12:28 12/18/2021 Venous) PM CDT 12:38 PM CDT Wilmer Kearns M.D. LAB BLOOD ADD-ON Performing Organization Address City/[facility]/ZIP [facility] [place], [place] Phon e Number [facility] - [address] [place], [place] [address] [place] [address] Type and Screen (with reflex Antibody ID) (12/18/2021 12:28 PM CDT) Patholo gist Method Time Signature ABORh O Pos Not 12/18/2021 ETRM applicable 3:16 PM CDT Antibody Negative Negative 12/18/2021 ETRM Screen 3:33 PM CDT Type & Screen 02/15/2022 12/18/2021 ETRM Expiration 23:59 3:16 PM CDT Testing [place] DEFAULT 12/18/2021 ETRM Location 12:44 PM CDT Specimen Anatomical Collection Method Collection Time Receive d Time (Source) Location / / Volume Laterality Blood (Blood, 12/18/2021 12:28 12/18/2021 Venous) PM CDT 12:44 PM CDT Wilmer Kearns M.D. LAB BLOOD BANK TEST ORDERABL ES Performing Organization Address City/[facility] Phon e Number [facility] - [address] [place], [place] [address] [facility] [place] [address] (ABNORMAL) Hemoglobin A1c (12/18/2021 12:28 PM CDT) P athologist Signature Hemoglobin A1c, 9.0 (H) 4.0 - 5.6 12/18/2021 DTL B % 1:22 PM CDT Comment: Hemoglobin A1c values greater than or eq ual to 6.5 percent are diagnostic for diabetes mellitus. ?? Diagnosis should be confirmed by repeat testing. ??In diabet ic patients, HbA1c goals should be discussed with healthcar e provider. Specimen Anatomical Collection Method Collection Time Receive d Time (Source) Location / / Volume Laterality Blood (Blood, 12/18/2021 12:28 12/18/2021 Venous) PM CDT 12:38 PM CDT Wilmer Kearns M.D. LAB BLOOD ADD-ON Performing Organization Address City/State/ZIP Code Phon e Number [facility] - [address] [place], [place] [address] [facility] [place] [address] [facility] [address] (ABNORMAL) Comprehensive Metabolic Panel (12/18/2021 12:28 PM CDT) athologist Signature Potassium, S 4.5 3.6 - 5.2 12/18/2021 DTL mmol/L 1:46 PM CDT Sodium, S 137 135 - 145 12/18/2021 DTL mmol/L 1:46 PM CDT Chloride, S 97 (L) 98 - 107 12/18/2021 DTL mmol/L 1:46 PM CDT Bicarbonate, S 25 22 - 29 12/18/2021 DTL mmol/L 1:46 PM CDT Anion Gap 15 7 - 15 12/18/2021 DTL 1:46 PM CDT BUN (Blood Urea 20 6 - 21 12/18/2021 DTL Nitrogen), S mg/dL 1:46 PM CDT Creatinine 0.70 0.59 - 12/18/2021 DTL 1.04 mg/dL 1:46 PM CDT Estimated GFR >90 >=60 12/18/2021 DTL (eGFR) mL/min/BSA 1:46 PM CDT Comment: Estimated GFR calculated using the 2020 CKD_EPI creatinine equation. Calcium, Total, S 9.7 8.8 - 10.2 mg/dL 12/18/2021 1:46 PM CDT DTL Glucose, S 226 (H) 70 - 140 mg/dL 12/18/2021 1:46 PM CDT D TL Protein, Total, S 6.5 6.3 - 7.9 g/dL 12/18/2021 1:46 P M CDT DTL Albumin, S 4.5 3.5 - 5.0 g/dL 12/18/2021 1:46 PM CDT D TL Aspartate Aminotransferase 22 8 - 43 U/L 12/18/2021 1 :46 PM CDT DTL (AST), S Alkaline Phosphatase, S 88 35 - 104 U/L 12/18/2021 1: 46 PM CDT DTL Alanine Aminotransferase 47 (H) 7 - 45 U/L 12/18/2021 1:4 6 PM CDT DTL (ALT), S Bilirubin, Total, S 0.4 <=1.2 mg/dL 12/18/2021 1:46 PM CDT DTL Specimen Anatomical Collection Method Collection Time Receive d Time (Source) Location / / Volume Laterality Blood (Blood, 12/18/2021 12:28 12/18/2021 1:07 Venous) PM CDT PM CDT Wilmer Kearns M.D. LAB BLOOD ADD-ON Performing Organization Address City/State/ZIP Code Phon e Number [facility] - [address] [place] [address] [facility] [place] [address] [facility] [address] [facility] BMD Bone Density Spine Hips (12/18/2021 12:24 PM CDT) Anatomical Region Laterality Modality Hip, Lumbar Spine, Nuclear Medicine RST LOS, N/A Radiographic Imaging Musculoskeletal ARZ LOS, Muskuloskeletal FLA LOS Specimen (Source) Anatomical Collection Method Collection Time Re ceived Time Location / / Volume Laterality 12/18/2021 2:25 PM CDT Impressions 12/18/2021 2:25 PM CDT Low bone density (Osteopenia) DualFemur (region: Neck Right) ?? Narrative 12/18/2021 2:25 PM CDT EXAM: ??BMD BONE DENSITY SPINE HIPS Bone Mineral Density (BMD) analysis perf ormed on Scalix with serial number [id number]. ? FINDINGS: Left Hip: Femur Neck: BMD = 0.879 g/cm2 T-score = -1.1 ?Z-score = -0.3 Total Hip: BMD = 1.099 g/cm2 T-score = 0.7 ?Z-score = 1.3 Right Hip: Femur Neck: BMD = 0.847 g/cm2 T-score = -1.4 ?? Z-score = -0.5 Total Hip: BMD = 1.076 g/cm2 T-score = 0.5 ?Z-score = 1.1 ? Please note: A more comprehensive DXA re port, including images and graphs, is available in [employer]. In the absence of other causes of low BM D or demonstrated skeletal fragility, osteoporosis may be diagnosed in post-menopausal women and m en at or above age 50 when the T-score is at or below -2.5 as defined by the WHO. Low bone density is present at T-scores between -1 and - 2.5. The diagnosis in pre-menopausal women and men < age 50 ca n be based on low bone density or evidence of skeletal fragility in the appropriate clinical se tting. Based on the lowest femur neck bone dens ity results, and on the patient's answers to the Fracture Risk Assessment questionnaire (please re adan to appropriate image stored in the BMD study in [employer]), the calculated ten year probability of f racture is: FRAX Risk Factors: None FRAX (10 yr probability) Major Osteoporotic Fracture: ??8.1 % Hip Fracture: ?0.9 % ? Today's spine scan is considered non-heide gnostic according to ISCD Guidelines. Procedure Note Jai Villagran M.B., B.Ch., B.A.O. - 12/18/2021 EXAM: BMD BONE DENSITY SPINE HIPS Bone Mineral Density (BMD) analysis perf ormed on [employer] with serial number [id number]. FINDINGS: Left Hip: Femur Neck: BMD = 0.879 g/cm2 T-score = -1.1 Z-score = -0.3 Total Hip: BMD = 1.099 g/cm2 T-score = 0.7 Z-score = 1.3 Right Hip: Femur Neck: BMD = 0.847 g/cm2 T-score = -1.4 Z-score = -0.5 Total Hip: BMD = 1.076 g/cm2 T-score = 0.5 Z-score = 1.1 Please note: A more comprehensive DXA re port, including images and graphs, is available in [employer]. In the absence of other causes of low BM D or demonstrated skeletal fragility, osteoporosis may be diagnosed in post-menopausal women and m en at or above age 50 when the T-score is at or below -2.5 as defined by the WHO. Low bone density is present at T-scores between -1 and - 2.5. The diagnosis in pre-menopausal women and men < age 50 ca n be based on low bone density or evidence of skeletal fragility in the appropriate clinical se tting. Based on the lowest femur neck bone dens ity results, and on the patient's answers to the Fracture Risk Assessment questionnaire (please re adan to appropriate image stored in the BMD study in [employer]), the calculated ten year probability of f racture is: FRAX Risk Factors: None FRAX (10 yr probability) Major Osteoporotic Fracture: 8.1 % Hip Fracture: 0.9 % Today's spine scan is considered non-heide gnostic according to ISCD Guidelines. IMPRESSION: Low bone density (Osteopenia) DualFemur (region: Neck Right) Wilmer BRAGA DXA PROCEDURES MR Cervical Spine without IV Contrast (11/14/2021 2:49 PM CDT) Anatomical Region Laterality Modality Spine, Cervical Spine, Neuroradiology RST LOS, N/A Magnetic Resonance Neuroradiology [facility], [facility] Specimen (Source) Anatomical Collection Method Collection Time Re ceived Time Location / / Volume Laterality 11/14/2021 2:32 PM CDT Impressions 11/14/2021 5:43 PM CDT Mildly progressed cervical spondylosis which in the setting of congenital cervical spine narrowing results in multilevel severe s kevin canal and neural foraminal narrowing. There is suggestion of cord signal alteration at C5-C6 which was not seen on the prior exam, but this is less than definitive. Updated cervical spine CT may be helpful in further evaluation, as indicated. Narrative 11/14/2021 5:43 PM CDT EXAM: MR CERVICAL SPINE WITHOUT IV CONTRAST COMPARISON: Cervical spine MRI . FINDINGS: Image quality is degraded by m otion artifact. Straightening of the cervical lordosis i s likely positional. Cerebral spondylosis with facet and uncovertebral hypertrophy most marked in C5-C6. 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 This is most marked at C4-C5 and C5-C6 where spinal canal narrowing is advanced. Possible co rd signal alteration is seen at C5-C6 although evaluation is made more difficult by the motion artifa ct (series 7, image 25). Neural foraminal narrowing appears severe bilaterally at C4-C5, C5-C6, and C6-C7. Overall these findings have mildly progressed from the prior exam. T2 hyperintense right thyroid lobe nodul e better seen on the prior exam. Procedure Note Caitlin Beckett M.D. - 11/14/2021Form atting of this note might be different from the original. EXAM: MR CERVICAL SPINE WITHOUT IV CONTR AST COMPARISON: Cervical spine MRI . FINDINGS: Image quality is degraded by m otion artifact. Straightening of the cervical lordosis i s likely positional. Cerebral spondylosis with facet and uncovertebral hypertrophy most marked in C5-C6. 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 This is most marked at C4-C5 and C5-C6 where spinal canal narrowing is advanced. Possible co rd signal alteration is seen at C5-C6 although evaluation is made more difficult by the motion artifa ct (series 7, image 25). Neural foraminal narrowing appears severe bilaterally at C4-C5, C5-C6, and C6-C7. Overall these findings have mildly progressed from the prior exam. T2 hyperintense right thyroid lobe nodul e better seen on the prior exam. IMPRESSION: Mildly progressed cervical spondylosis w hich in the setting of congenital cervical spine narrowing results in multilevel severe s kevin canal and neural foraminal narrowing. There is suggestion of cord signal alteration at C5-C6 which was not seen on the prior exam, but this is less than definitive. Updated cervical spine CT may be helpful in further evaluation, as indicated. Lia Junior APRN, C.N.P., M.S.N. IMG MRI PROCEDURE S from Last 3 Months Insurance Payer Benefit Plan Subscriber ID Effective Phone Address Typ e / Group Dates MEDICARE MEDICARE A [id number] 2012-Pres [address] [place] [address] BLUE CROSS BCBS [place] [id number] 2012-Pres [phone] PO AGATA X Cost Share BLUE SHIELD BLUE COST ent [phone] [place] [address] Advance Directives For more information, please contact: [phone] Documents on File Type Date Recorded Patient Digital Editor Explanati on Advance Directives 12/17/2011 12:00 AM Legacy doc ument. See document viewer. Latest Code Status on File Code Status Date Activated Date Inactivated Comments Full Code 12/24/2021 6:31 PM 12/28/2021 5:21 PM Question Answer Comments Full Code: Discussed
--- OUTSIDE RECORDS SUMMARY | 2022-01-12 12:33 | XMS_ITS | Encounter Summary ---
:1955 Author Organization [facility] Address [address] [place] [address] Care Team Providers Name Role Phone Unavailable Primary Care Provider Unavailable Reason for Visit Outpatient (Routine) - Closed Specialty Diagnoses / Procedures Referred By Contact Refer red To Contact Orthopedic Surgery Buster Herrera [facility] [address] [place] [address] Referral ID Status Reason Start Date Expiration Date Visits Requ ested Visits Authorized [id number] Closed 11/14/2021 11/13/2024 1 1 Encounter Details Date Type Department Care Team Description 12/21/2021 Office Visit Department of Buster Herrera Cervical D isc Disorder Orthopedic Surgery [place] With Myelopathy [place], [place] [address] [facility] (Primary Dx) [address] [place] [phone] Social History Tobacco Use Types Packs/Day Years Used Date Smoking Tobacco: Former Cigarettes 1 15 01/15 - 01/25/1986 Pipe Smokeless Tobacco: Never Alcohol Use Standard Drinks/Week Comments Not Currently [...] or relatives? How often do you attend baptism or Never 2021 confucianism services? Do you belong to any clubs or Yes 12/12/2021 organizations such as baptism groups, unions, fraternal or athletic groups, or [...] place to sleep or slept in a prison (including now)? Education Answer Date Recorded What is the highest level of school Master's degree (e.g., M Dago, MS, 07/15/2020 you have completed or the highest Tiara, MEd, TELEPHONE INFORMATION SUPERVISOR, ODILIA) degree you have received? Sex Assigned at Date Recorded Female 07/21/2017 2:58 PM CDT documented as of this encounter Progress Buster Rosen M.D. - 12/21/2021 1:30 PM CDT SUBJECTIVE HISTORY OF PRESENT ILLNESS Ms. Adames returns to us today. Of note, she did undergo cervical laminoplasty with myself on Friday. She denies any significant changes in her symptoms since our last visit. She does report continued pain in the neck and progressive numbness, tingling, weakness in her hands. Associated with this, she does have some right upper extremity pain intermittently, which radiates into the dorsal forearm and hand. She does have some symptoms on the left as well. She otherwise reports progressive gait instability, chronic bladder incontinence. This has all been refractory to conservative cares. Manav have a significant past medical history and is on Xarelto for history of mitral valve prolapse and DVT and PE history. OBJECTIVE PHYSICAL EXAMINATION Musculoskeletal: She is neurologically unchanged from our last visit. She continues to demonstrate 4- weakness in the right deltoid, 4 on the left. She has 4 to 4- weakness in bilateral biceps, 4- weakness in her left triceps, and 4- weakness in bilateral hand interossei and finger flexors. She otherwise has 4- weakness in bilateral iliopsoas, which slightly worsened from prior eval. She otherwise has full strength in all remaining myotomes. She has slightly decreased sensation in her right greater than left C5-6 distribution. She has brisk reflexes in bilateral upper extremities and positive Nancy's bilaterally. DIAGNOSTICS On review of the patient's imaging including x-rays, MRI, CT scan of the cervical spine including anMRI obtained February 2021 as well as more recently in October of 2021, the patient does have severe multilevel stenosis, worse at the C4-5 and 5-6 levels with cord compression and cord signal change. She has moderate stenosis at C3-4 and C6-7. She otherwise has K-line positive alignment. ASSESSMENT / PLAN #1 Progressive cervical myelopathy #2 Intermittent cervical radiculopathy #3 Congenital cervical stenosis #4 Chronic urinary incontinence #5 Low back and bilateral lower extremity pain with numbness, tingling, and weakness #6 Progressive neurogenic claudication #7 Degenerative scoliosis #8 Multiple medical comorbidities including on chronic anticoagulation with Xarelto for mitral valveprolapse and history of DVT with PE At this time, I did have a long discussion with the patient. Certainly, her biggest concern is with regard to her progressive myelopathic symptoms. This is certainly understandable given her history ofmultiple falls recently. I do think in this setting, a surgical intervention in my hands would likely entail a laminoplasty done from C3-7. I did discuss the rationale for this approach and the primarygoal of the surgical intervention which would be to prevent progression. I did discuss her intermittent radiculopathy symptoms may or may not be alleviated with the surgical procedure and certainly an additional surgery may be warranted down the road if her radiculopathy becomes more persistent. However, I did discuss again the primary goal, which would be to prevent progression, understanding that her symptoms may be no better or even worsened and discussed the risks associated with surgery including risk of surgical site infection, spinal fluid leak, neurologic injury, instrumentation issues, adjacent segment issues, bleeding, anesthetic complications, and perioperative medical complications. Inparticular, I did discuss the risk of C5 palsy, which can be as high as 11% in some series. We also did discuss her elevated risk, especially in the setting of her multiple medical comorbidities, whichinclude poorly controlled diabetes mellitus and her chronic anticoagulation. I did discuss with her that this does put her at an elevated risk for both surgical site infection as well as postoperative epidural hematoma. She expressed understanding of all these things and wished to proceed. Informed consent was obtained and signed. All questions were answered. Buster Herrera M.D. CT CT Job ID: [id number] documented in this encounter Plan of Treatment Not on filedocumented as of this encounter Visit Diagnoses Diagnosis Cervical Disc Disorder With Myelopathy - Primary documented in this encounter Additional Health Concerns Assessment Noted Time PHQ-9 Depression Total Score: 5 04/29/2016 10:10 AM CS T documented as of this encounter
--- OUTSIDE RECORDS SUMMARY | 2022-01-12 12:33 | XMS_ITS | Encounter Summary ---
:1955 Author Organization [facility] Address [address] [place] [address] Care Team Providers Name Role Phone Unavailable Primary Care Provider Unavailable Reason for Referral Outpatient (Routine) - Closed Specialty Diagnoses / Procedures Referred By Contact Refer red To Contact Diagnoses Preoperative Exam Buster Herrera M.D. [facility] Procedures DX Cervical Spine 4-[address] Views [address] [place] [address] [phone] Referral ID Status Reason Start Date Expiration Date Visits Requ ested Visits Authorized [id number] Closed 11/14/2021 11/14/2022 1 1 Reason for Visit Outpatient (Routine) - Closed Specialty Diagnoses / Procedures Referred By Contact Refer red To Contact Diagnoses Preoperative Exam Buster Herrera M.D. [facility] Procedures DX Cervical Spine 4-5 Views [address] [place] [phone] Referral ID Status Reason Start Date Expiration Date Visits Requ ested Visits Authorized [id number] Closed 11/14/2021 11/14/2022 1 1 Encounter Details Date Type Department Care Team Description 12/18/2021 Hospital Encounter Department of Buster Herrera perative Exam Radiology, Jay Lang M.D. Building, in [address] [place] [address] [place] [phone] [place], [place] [phone] (Work) [phone] Social History Tobacco Use Types Packs/Day Years Used Date Smoking Tobacco: Former Smokeless Tobacco: Never Alcohol Use Standard Drinks/Week Comments No 0 (1 standard drink = 0.6 oz [...] or relatives? How often do you attend quaker or Never 2021 muslim services? Do you belong to any clubs or Yes 12/12/2021 organizations such as quaker groups, unions, fraternal or athletic groups, or [...] place to sleep or slept in a intermediate (including now)? Education Answer Date Recorded What is the highest level of school Master's degree (e.g., M A, MS, 07/15/2020 you have completed or the highest Tiara, MEd, MACHINE LACER, ODILIA) degree you have received? Sex Assigned at Date Recorded Female 07/21/2017 2:58 PM CDT documented as of this encounter Medications at Time of Discharge Medication Sig Dispensed Refills Start Date End Date acetaminophen (TYLENOL) Take 2 tablets 0 12/28/19 22 500 mg tablet (1,000 mg total) by mouth 4 (four) times a day. alcohol swabs pads, Use as needed for 200 each 0 2 medicated diabetes control alpha lipoic acid 600 mg Take 600 mg by 0 capsule mouth at bedtime. blood glucose ctl Glucose control 1 each 0 12/28/2021 high,nml,low solution solution provides an easy way to ensure accurate blood glucose testing. blood sugar diagnostic 4 test daily. 365 test 0 12/28/2021 strips blood-glucose meter [facility] Test as directed 1 each 0 12/28 for diabetes control. co-enzyme Q-10 (CO Q-10) Take 1 capsule by 0 04/17 100 mg capsule mouth daily. cranberry 400 mg capsule Take 400 mg by 0 019 mouth daily. diazePAM (VALIUM) 5 mg Take 1 tablet (5 10 tablet 0 022 tablet mg total) by mouth 3 (three) times a day as needed for muscle spasms. fluticasone propionate Inhale 1 puff 2 0 10/01/19 21 (FLOVENT HFA) 110 (two) times a day. mcg/actuation inhaler FSH/FLX/PRIM/CUR/BOR/OM3,6 Take 1 capsule by 0 ,9 5 (OMEGA 3-6-9 FATTY mouth daily. ACIDS ORAL) ginkgo biloba 40 mg tablet Take 120 mg by 0 mouth daily. glipiZIDE (GLUCOTROL XL) 5 Take 5 mg by mouth 0 0 09/03/2021 mg 24 hr tablet daily. hydroCHLOROthiazide Take 25 mg by 0 12/09/2016 (for_HYDRODIURIL) 25 mg mouth daily. tablet insulin aspart U-100 Inject 8 Units 15 mL 0 12/28/2021 (NovoLOG Flexpen U-100 under the skin 3 Insulin) 100 unit/mL (3 (three) times a mL) injection day with meals. Give 8 units three times daily with meals. Hold if not eating or eating less than 50% of diet. Dose may need further adjustments insulin glargine (Lantus Inject 22 Units 15 mL 0 2021 Solostar U-100 Insulin) under the skin 100 unit/mL (3 mL) every morning. injection IRON,CARBONYL/ASCORBIC Take 1 tablet by 0 07/19/ 016 ACID (VITRON-C ORAL) mouth 2 (two) times a day. lancets 4 each daily. 365 each 0 12/28/2021 metFORMIN (for_GLUCOPHAGE) Take 1,000 mg by 0 10/2016 500 mg tablet mouth 2 (two) times a day with meals. multivitamin tablet Take 1 tablet by 0 04/25/2011 mouth daily. nystatin (for_MYCOSTATIN) Apply 1 0 10/30/2016 100,000 unit/gram cream application topically 2 (two) times a day as needed. oxyCODONE (ROXICODONE) 5 Take 1 tablet (5 18 tablet 0 12/27 mg immediate release mg total) by mouth tabletIndications: Acute every 4 (four) Pain hours as needed for moderate pain or score 4-6 of 10 (if other analgesics fail) Indication: Acute Pain. pen needle, diabetic (BD 4 each (4 365 each 0 12/28/2021 Ultra-Fine Mini Pen Injection total) Needle) 31 gauge x 3/16 daily. needle polyethylene glycol Take 1 packet (17 0 2 (MIRALAX) 17 gram powder g total) by mouth packetIndications: daily Indications: constipation constipation. Dissolve each 17 g dose in 240 mLs (8 ounces) of beverage. pramipexole (MIRAPEX) Take 2-3 tablets 0 08/29/19 16 0.125 mg tablet by mouth 2 (two) times a day. 3 tabs in the afternoon, 2 tabs at bedtime pregabalin (LYRICA) 150 mg Take 1 capsule 60 capsule 5 03/31 capsule (150 mg total) by mouth 2 (two) times a day. traZODone (DESYREL) 100 mg Take 100 mg by 0 02/16 tablet mouth daily. Taking 2 tablets at bedtime turmeric root extract 500 Take by mouth 0 mg capsule daily. valACYclovir (VALTREX) 500 0 1 mg tablet venlafaxine XR (EFFEXOR Take 1 capsule by 0 03/19 XR) 150 mg 24 hr capsule mouth daily. With 75 mg capsule = 225 mg total dose venlafaxine XR Take 75 mg by 0 05/25/2020 (EFFEXOR-XR) 75 mg 24 hr mouth daily. Take capsule with 150 mg = 225 mg total daily. VOLTAREN 1 % gel Apply 4 g 0 12/05/2016 topically 4 (four) times a day as needed. Xarelto 10 mg tablet Take 10 mg by 0 10/22/2021 mouth daily. acyclovir (for_ZOVIRAX) Take by mouth as 0 200812/24/2021 200 mg capsule needed. alcaftadine 0.25 % drops INT 1 DROP IN OU D 0 01/201912/24/2021 amoxicillin (AMOXIL) 500 Take 2,000 mg by 0 12/27/2021 mg capsule mouth as directed. carBAMazepine (CARBATROL) Take 1 capsule 180 capsule 3 05/1812/21/2021 200 mg 12 hr capsule (200 mg total) by mouth 2 (two) times a day. CONTOUR NEXT LEV 2 CONTROL U UTD 0 7 12/24/2021 JONNY solution CONTOUR NEXT STRIPS strips 2 (two) times a 3 11/201712/24/2021 day. for testing hydrocortisone (ANUSOL-HC) Insert 25 mg into 0 12/21/2021 25 mg suppository the rectum. ibuprofen (ADVIL,MOTRIN) Take 800 mg by 0 019 12/27/2021 800 mg tablet mouth every 6 (six) hours as needed. loratadine (for_CLARITIN) Take 1 tablet by 0 09/1512/27/2021 10 mg tablet mouth daily. mecobal-levomefolat Ca-B6 TAKE 1 TABLET BY 0 10/202012/24/2021 phos 3-35-2 mg tablet MOUTH TWICE DAILY MICROLET LANCET misc 2 (two) times a 3 04/04/2017 12/24/2021 day. for testing oxyCODONE-acetaminophen Take 1-2 tablets 0 202012/27/2021 (PERCOCET) 5-325 mg per by mouth 3 (three) tablet times a day as needed. documented as of this encounter Plan of Treatment Not on filedocumented as of this encounter Procedures Procedure Name Priority Date/Time Associated Comments Diagnosis DX CERVICAL SPINE RAD - Routine 12/18/2021 2:17 Preoperative Exam R esults for this 4-5 VIEWS (most inpatients PM CDT procedure a re in and all the results outpatients) section. documented in this encounter Results DX Cervical Spine 4-5 Views (12/18/2021 2:17 [...] CERVICAL SPINE 4-5 VIEWS Procedure Note Scooby Acñua M.D. - 12/18/2021Forma tting of this note might be different from the original. EXAM: DX CERVICAL SPINE 4-5 VIEWS IMPRESSION: Cervical spondylotic change with disk sp giselle narrowing greatest at C5-C6. Minimal anterolisthesis C2 on C3. Minimal retrol isthesis C5 on C6. C2 on C3 anterolisthesis slightly increases in flexion. Buster BRAGA [facility] PROCE DEB documented in this encounter Visit Diagnoses Diagnosis Preoperative Exam documented in this encounter Additional Health Concerns Assessment Noted Time PHQ-9 Depression Total Score: 5 04/29/2016 10:10 AM CS T documented as of this encounter
--- OUTSIDE RECORDS SUMMARY | 2022-01-12 12:33 | XMS_ITS | Encounter Summary ---
:1955 Author Organization [facility] Address [address] [place] [address] Care Team Providers Name Role Phone Unavailable Primary Care Provider Unavailable Encounter Details Date Type Department Care Team Description 12/24/2021 Surgery RST ROMObi ROCHA OR Wilmer Kearns LAMINOPLASTY POSTERIOR [address] [facility] Flynn Lang CERVICAL C3-[address]. [place], [place] [address] [facility] [address] [place], [place] [phone] Social History Tobacco Use Types Packs/Day Years [...] or relatives? How often do you attend sikh or Never 2021 denominational services? Do you belong to any clubs or Yes 12/12/2021 organizations such as sikh groups, unions, fraternal or athletic groups, or [...] have completed or the highest Tiara, MEd, CATTLE TRADER, ODILIA) degree you have received? Sex Assigned at Date Recorded Female 07/21/2017 2:58 PM CDT documented as of this encounter Last Filed Vital Signs Vital Sign Reading Time Taken Comments Blood Pressure 132/60 12/24/2021 7:00 PM CDT Pulse 71 12/24/2021 7:00 PM CDT Temperature 36.4 ??C (97.5 ??F) 12/24/2021 7:00 PM CDT Respiratory Rate 15 12/24/2021 7:00 PM CDT Oxygen Saturation 93% 12/24/2021 5:55 PM CDT Inhaled Oxygen Concentration - - Weight 127 kg (279 lb 12.2 oz) 12/24/2021 10:31 AM CDT Height 175.3 cm (5' 9) 12/24/2021 10:31 AM CDT Body Mass Index 41.31 12/24/2021 10:31 AM CDT documented in this encounter Discharge Summaries Cathy Kelley, ALESIA, C.N.P. - 12/28/2021 3:15 PM CDT DISCHARGE SUMMARY BRIEF OVERVIEW Hospital: [facility] Discharge Provider: Wilmer Kearns M.D. Primary [...] James T, M.D. RSTROMB OR DISCHARGE DISPOSITION [facility] Facility OUTPATIENT FOLLOW UP For appointment details [...] recovery progresses, you may resume the elliptical dry heat cabinet attendant. NO RUNNING or SPORTS, until we have [...] for anyone undergoing this surgery. Ifyou can hospital tray service worker, you can begin doing light desk/phone [...] may contact Dr. Kearns's service through the [facility] sling operator at . THANK YOU AND GET WELL SOON! Dr. Kearns Team CONSULTS ORDERED DURING THIS ADMISSION IP CONSULT TO DIABETES IP CONSULT TO CARE MANAGEMENT IP CONSULT TO CARE MANAGEMENT CONDITION AT DISCHARGE stable Discharge instructions were provided to the patient and caregiver(s). documented in this encounter Discharge Instructions Discharge InstructionsDilshad Mendoza APRN, C.N.PCandy, D.N.P. - 12/28/2021 1:15 PM CDT BLOOD GLUCOSE MANAGEMENT: Monitor blood glucose four times daily before meals and at bedtime. Blood glucose goal is 100-140 mg/dL. Most recent A1c on record: Lab Results Component Value Date HGBA1C 9.0 (H) 12/18/2021 Please have Provider of Care at [facility] review blood glucoses at least twice weeklyto determine if changes in insulin therapy are indicated, or earlier if blood glucose values are consistently out of goal range. As Diabetes and Nutritional Education is important to your diabetes management, yearly follow up with a local Map And Chart Mounter and Dietitian is recommended. Please check with [...] Discharge information provided on 12/25/2021 Contact information: [facility], [address], documented in this encounter Medications at Time [...] in agreement with the plan. DCS pager [phone] will continue to follow. Call primary service for diabetes concerns between [phone]. Primary service to contact DCS via hospital sling operator for questions. Yanet Sanchez N - 12/28/2021 10:35 AM CDT Occupational Therapy Acute Hospital Inpatient Treatment SUBJECTIVE Patient's Name: Yaz JeromealeksandraMultani Referring/Attending Provider: Wilmer Kearns M.D. Medical Diagnosis: [...] based on her usual exercise protocol called [employer] channel. Patient opted to perform exercise called [...] Completion Date - OT: 12/25/21 Outcome Measures AM-PAC Inpatient Short Form: Putting on and taking [...] Standardized Score: 40.22 Interpretation: Clinicians answer the [facility] Inpatient Short Form based on observed patient [...] bed relaxing. SW updated patient regarding accepting [facility] facility. Patient reported she wouldlike a stretcher [...] be changed. Transportation will be provided by [employer] ([phone]). Transportation will be paid for by patient. Daughter was called as well who informed SW that patient has a credit card with her ipad or another one in her suitcase. . Destination - Admitted Since 12/24/2021 Service Provider Selected Services Address Phone Fax Patient Preferred [facility] [address] [place] [address] [phone] -- Contact: Nursing Transportation oxygen: No oxygen [...] Orthopedic Spine Surgery Progress Note Orthopedic Service: [facility] Admission Day: 12/24/2021 SUBJECTIVE Mrs. Multani had [...] (mL) 12/26/21 0701 - 12/26/21 1900 12/26/21 1901 - 12/27/21 0700 12/27/21 0701 - 12/27/21 1900 12/27/21 190 - 12/28/21 0529 Patient has no LDAs of requested type attached. PHYSICAL EXAM General: Lying in bed comfortably, NAD Neuro: Motor (UE) Deltoid?? Biceps?? Triceps Wrest ext Wrist flex Services Executive Fing Abd?? R?? 5 5 5 5?? [...] time on the weekend, please contact the [facility] Orthopedic Surgery house resident superintendent compressor stations at [phone]. Barbara Dyson, R.R.T., L.R.T. - 12/27/2021 10:34 PM CDT [...] Electronically signed by: Barbara Dyson R.R.T., L.R.T. 12/27/21 10:30 PM CDT Carrie Umanzor P.T.A. - 12/27/2021 2:00 PM CDT Physical Therapy Inpatient Treatment Note SUBJECTIVE Patient's Name: Yaz HaLucianoNerissa Referring/Attending: Wilmer Kearns M.D. Medical Diagnosis: Myelopathy Cervical [...] Exercise Mode: Active motion against gravity Sets/Repetitions: /10 Education provided this session: spinal precautions and implications for mobility The patient/family educated on safe transfer techniques with functional mobility/activity. Patient's nurse was contacted and patient's status was discussed, Discussed patient's care with OT Inpatient AVS Complete - PT: No Patient was left in bed at end of session with call light in reach, all needs met and questions answered. Outcome Measures AM-PAC Inpatient Short Form: AM-PAC Basic Mobility (V.2) How much help from [...] Climbing 3-5 steps with a railing?: Total -[facility] Basic Mobility (V.2) Raw Score: 16 -[facility] Basic Mobility (V.2) Standardized Score: 38.32 Interpretation: Clinicians answer the -[facility] Inpatient Short Form based on observed patient [...] activity, Neuromuscular re-education, Gait training, Self-care/home management POUND KEEPER Visit Trackin Billing: Time Spent with Patient Therapeutic Interventions Therapeutic Activity (min): 23 min Time Tracking Total Timed Units (min): 23 min Total Treatment Time (min): 23 min Mark LewisTAris Katia Marinelli L.G.S.Katelyn., M.S.W. - 12/27/2021 1:26 PM CDT SUBJECTIVE [...] Selected Services Address Phone Fax Patient Preferred [facility] Pending - Request Sent N/A [address] [facility] [address] -- [facility] Pending - Request Sent N/A [address] [facility] [address] -- [facility] Pending - Request Sent N/A [address] [facility] [phone] -- [facility] Pending - Request Sent N/A [address] [facility] [address] -- [facility] Pending - Request Sent N/A [address] [facility] [phone] -- [facility] Pending - Request Sent N/A [address] [facility] [address] -- [facility] Declined Bariatric N/A [address] [facility] [phone] -- ASSESSMENT / PLAN ASSESSMENT Patient was [...] Completion Date - OT: 12/25/21 Outcome Measures [facility] Inpatient Short Form: Putting on and taking [...] Standardized Score: 40.22 Interpretation: Clinicians answer the [facility] Inpatient Short Form based on observed patient [...] Orthopedic Spine Surgery Progress Note Orthopedic Service: [facility] Admission Day: 12/24/2021 SUBJECTIVE Mrs. Multani had [...] Deltoid?? Biceps?? Triceps Wrest ext Wrist flex Services Executive Fing Abd?? R?? 5 5 5 5?? [...] time on the weekend, please contact the [facility] Orthopedic Surgery house resident superintendent compressor stations at [phone]. Barbara Dyson R.R.T., L.R.T. - 12/26/2021 10:49 PM CDT 12/26/21 2248 BPAP/CPAP Therapy BPAP/CPAP Interface Full face mask [...] of thyroid cancer. Reviewed this with our hr business partner consultant Dr. Pastor who recommends that a [...] in agreement with the plan. DCS pager [phone] will continue to follow. Call primary service for diabetes concerns between [phone]. Primary service to contact DCS via hospital sling operator for questions. Yanet Sanchez N - 12/26/2021 9:50 AM CDT Occupational Therapy Acute Hospital Inpatient Treatment SUBJECTIVE Patient's Name: Yaz HaLucianoNerissa Referring/Attending Provider: Wilmer Kearns M.D. Medical Diagnosis: [...] OT arrival listening to audiobook. She reports 8/10 painand that she has received her morning [...] dressing while seated edge of bed by donning new hospital gown. Patient able to thread UEs and [...] Completion Date - OT: 12/25/21 Outcome Measures [facility] Inpatient Short Form: Putting on and taking [...] Standardized Score: 38.66 Interpretation: Clinicians answer the AM-PAC Inpatient Short Form based on observed patient [...] HUNTER Stauffer Associated attestation - Sirena Velasco OChristopher. - 12/26/2021 1:28 PM CDT This therapist has reviewed all documentation and supervised today's session. This therapist agrees with the plan of care developed in collaboration with the patient. Abdon Gill M.D. - 12/26/2021 8:30 AM CDT Orthopedic Spine Surgery Progress Note Orthopedic Service: [facility] Admission Day: 12/24/2021 SUBJECTIVE Mrs. Multani had [...] [68-93] 93 Output by Drain (mL) 12/23/21 07 - 12/23/21 1900 12/23/21 190 - 12/24/21 0700 12/24/21 07 - 12/24/21 19012/24/211900 - 12/25/21 0712/25/21 07 - 12/25/21 1900 12/25/211900 - 12/25/211911 Closed/Suction Drain 1 Posterior Back Accordion 10 Fr. 60 5 PHYSICAL EXAM General: Lying in bed comfortably, NAD Neuro: Motor (UE) Deltoid?? Biceps?? Triceps Wrest ext Wrist flex Services Executive Fing Abd?? R?? 4 5 5 5?? [...] am until 6 pm, please page Javier service. If outside of 06:00 - 18:00 on weekdays or any time on the weekend, please contact the [facility] Orthopedic Surgery house resident superintendent compressor stations at [phone]. Sahra Hamilton R.R.T., C.R.T., L.R.T. - 12/25/2021 10:42 PM CDT 12/25/21 2200 BPAP/CPAP Therapy BPAP/CPAP Interface Full face mask BPAP/CPAP Interface Size Medium Skin barrier Liquid-filled membrane $BPAP/CPAP Yes Ventilator Parameters Ventilator Parameters (Select Groups) BPAP/CPAP Rows BPAP/CPAP Mode Auto-CPAP NPPV EPAP (CPAP) Setting (5-15) Patient placed on PAP for the night. Electronically signed by: Tatum LoaizaTCandy, C.R.T., L.R.T. 12/25/21 10:43 PM CDT Gisell Seals, Pharm.D., R.Ph. - 12/25/2021 2:30 PM CDT Images from the original note were not included. Clinical Pharmacist Progress Note Reason for admission: Yaz Adames is a 66 y.o. female admitted to [facility] on 12/24/2021 9:54 AM for cervical [...] N/A GI: Bowel regimen ordered. Last BM POUND KEEPER. Dietary Orders (From admission, onward) Start Ordered [...] 50 results from the past 48 hours) 12/25 0756 12/25 0856 12/25 1145 Glucose -- [...] likely new pain and bowel regimens Foster Seals Pharm.D., R.Ph. Pager: [phone] Dilshad Mendoza APRN C.N.PCandy, D.N.P. - 12/25/2021 11:58 AM CDT SUBJECTIVE [...] Regular starting at 12/25 1831 VITALS Temperature: 36.7 ??C Heart Rate: 73 [...] in agreement with the plan. DCS pager [phone] will continue to follow. Call primary service for diabetes concerns between [phone]. Primary service to contact DCS via hospital sling operator for questions. Tho Heredia M.D. - 12/25/2021 5:25 AM CDT Orthopedic Spine Surgery Progress Note Orthopedic Service: [facility] Admission Day: 12/24/2021 SUBJECTIVE Ms. Adames is [...] (mL) 12/23/21 0701 - 12/23/21 1900 12/23/21 190 - 12/24/21 0700 12/24/21 07 - 12/24/21 1900 12/24/21 190 - 12/25/21 0613 Closed/Suction Drain 1 Posterior Back Accordion 10 Fr. 30 PHYSICAL EXAM General: Lying in bed comfortably, NAD Neuro: Motor (UE) Deltoid?? Biceps?? Triceps Wrest ext Wrist flex Services Executive Fing Abd?? R?? 4 5 4 5?? [...] am until 6 pm, please page Javier service. If outside of 06:00 - 18:00 on weekdays or any time on the weekend, please contact the [facility] Orthopedic Surgery house resident superintendent compressor stations at [phone]. Kermit Shin R.R.T., L.R.T. - 12/24/2021 11:30 PM CDT 12/24/21 4879 Ventilator Parameters BPAP/CPAP Mode Auto-CPAP O2 Flow Rate 2 L/min EPAP (Min) 5 cm H2O EPAP (Max) 15 cm H2O Humidification Heated humidifier Pt placed on CPAP (hosp unit) for night & tolerating well. Will continue to follow & assist as needed. Electronically signed by: Kermit Shin R.R.T., L.R.T. 12/25/21 1:18 AM CDT hTo Heredia M.D. - 12/24/2021 5:28 PM CDT Orthopedic Spine Surgery Progress Note Orthopedic Service: [facility] Admission Day: 12/24/2021 SUBJECTIVE Seen in PACU. [...] (mL) 12/22/21 0701 - 12/22/21 1900 12/22/21 1901 - 12/23/21 0700 12/23/21 0701 - 12/23/21 1900 12/23/21 1901 - 12/24/21 0700 12/24/21 0701 - 12/24/21 1728 Requested LDAs do not have output data documented. PHYSICAL EXAM General: Lying in bed comfortably, NAD Neuro: Motor (UE) Deltoid?? Biceps?? Triceps Wrest ext Wrist flex Services Executive Fing Abd?? R?? 4 4 4 5?? [...] time on the weekend, please contact the [facility] Orthopedic Surgery house resident superintendent compressor stations at [phone]. Brodie Calderón, Pharm.D., R.Ph. - 12/24/2021 10:49 AM CDT Images from the original note were not included. Admission Medication History Note Adherence issues: No concerns Medication list source: Patient Prior to Admission Medications Med List Status: Pharmacy/RN Complete Set By: Jewels Leslie, RCandyNCandy at 12/24/2021 10:19 AM Last Dose Start [...] in this encounter Consult Notes Katia Marinelli L.G.S.W., M.S.W. - 12/26/2021 12:44 PM CDT SUBJECTIVE DEMOGRAPHIC INFORMATION Referral Source: Service/Provider Referral Reason: Discharge Planning Person(s) present during interview: Patient and daughter, Lia Previous Psychosocial Assessment : Yes, Date: 12/04/21, completed by Justin BlountSCandyW., M.S.W. . Patient denies any changes since [...] answered allquestions. OBJECTIVE Patient remains hospitalized on Alexa 4c-128 A list of fpc facility options (that they geographically reside or requested) has been provided to and reviewed with patient and daughter Lia . Disclaimers: Financial disclosure provided informing patient of our ownership and financial relationship of the [facility] beds, home health, and hospice agencies. Reviewed Medicare coverage and provided a list of options. Destination - Admitted Since 12/24/2021 Service Provider Request Status Selected Services Address Phone Fax Patient Preferred [facility] Pending - Request Sent N/A [address] [facility] [address] -- [facility] Pending - Request Sent N/A [address] [facility] [facility] [address] [phone] -- [facility] Pending - Request Sent N/A [address] [facility] [address] -- ASSESSMENT / PLAN ASSESSMENT Patient is [...] Avery Guaman, M.S.W. 12/26/21 Grace Quezada P.T., Joseph.P.T. - 12/25/2021 1:47 PM CDT Physical Therapy [...] lives nearby) Receives Help From: Family, Friend(s), general lot attendant (Daughter stops by for 2 hours 5x/week; SHAGGER helps with bathing 2x/week) ADL Assistance: Required assistance ADL Assistance Comments: Performs dressing and grooming tasks without assistance. Requires assistance for showers IADL/Homemaking Assistance: Required assistance IADL/Homemaking Assistance Comments: Daughter assists with cleaning, cooking, home management. Friend assists with medication management Driving: Does not drive Occupational Role: Retired Leisure Interests: Engages in seated exercise program daily Prior Mobility/Functional Transfers Level of [place]: Modified independent Gait Devices/Wheelchair Used: Other (Comment) [...] needs met and questions answered. Outcome Measures [facility] Inpatient Short Form: -[facility] Basic Mobility (V.2) How much help from [...] Climbing 3-5 steps with a railing?: Total -[facility] Basic Mobility (V.2) Raw Score: 15 -[facility] Basic Mobility (V.2) Standardized Score: 36.97 Interpretation: Clinicians answer the -[facility] Inpatient Short Form based on observed patient [...] min Grace Quezada P.T., D.P.T. Yanet Sanchez N - 12/25/2021 11:29 AM CDT Occupational Therapy Acute Hospital Inpatient Evaluation/Treatment SUBJECTIVE Patient's Name: Yaz Rosangela Referring/Attending Provider: Wilmer Kearns M.D. Medical Diagnosis: [...] CERVICAL C3-7.; Surgeon: Wilmer Kearns M.D.; Location: T ROMB OR OTHER CONVERTED SHX (SEE COMMENT) [...] program daily Prior Mobility/Functional Transfers Level of [place]: Modified independent Gait Devices/Wheelchair Used: Other (Comment) [...] Completion Date - OT: 12/25/21 Outcome Measures [facility] Inpatient Short Form: Putting on and taking [...] Standardized Score: 38.66 Interpretation: Clinicians answer the [facility] Inpatient Short Form based on observed patient [...] 12/04/21 Previous assessment done by: Adrianne Camp L.I.Natanael.SCandyWCandy, M.S.W. Primary Language: Albanian Person(s) present during interview: Person(s) Present During Interview: patient History of Present Illness #1 Myelopathy Cervical (HCC) Social History Support System: children Patient's Home Environment: two/multiple story house Finance/Insurance Primary insurance: MEDICARE A AND B Secondary insurance: [employer]) Does the patient have any financial concerns? no benefits: No Advance Directives Legal Decision Maker: Self Advance Directives: Power of Agency Service Coordinator for health care Advance Directives Status: Not Activated OBJECTIVE Baseline Functional Status Baseline Activities of Daily Living Mobility: Independent Dressing: Independent Feeding: Independent Bathing: Needs assistance Grooming: Independent Toileting: Independent Behavior: Calm, Pleasant, Other (comment) (fatigued) Communication: Talks, Understands speaking, Understands Albanian Shopping: Dependent Transportation: Support from family Medication Management: Independent Housekeeping: Dependent Meal Prep: Needs assistance Managing Finances: Independent Assistive Devices: Eyeglasses, Walker - four wheeled, Wheelchair - manual, Dentures Baseline Services/Resources Primary care clinic and provider: Anoop Emery from [facility] in [place] [phone] Additional Resources: NA Anticipated Needs Functional Status: Bathing, Mobility, Meal preparation, Housekeeping, Shopping, Transportation use (drive car, use taxi/bus) Anticipated Modifications to the Patient's Home: None Transportation Needs: Support from family Does the patient need discharge transport arranged?: No Ride and Caregiver Arranged: Yes Ride Caregiver Provider: Lia Mosocso Phone Number for Ride/Caregiver: [phone] Anticipated [facility]charge Destination: [facility] Facility ASSESSMENT / PLAN Assessment: The graphic art technician met with Yaz Adames to discuss her [...] have previously been completed by patient's daughter. graphic art technician discussed the patient's potential needs at dismissal based on their home setting, previous needs and responsibilities, homebound status, and relevant assessmentswith the patient. Support will be provided by patient's daughter. The patient demonstrated understanding when discussing her home going plans and anticipated needs. Patient expressed wanting to go to a rehab facility upon discharge. Yaz has requested admission to [facility] in [place], [place] ([phone]) as her first choice. Patient also identifies [facility] ([phone]) or [facility] ([phone]) as alt ernative options for SNF admission. Physical and occupational therapy have yet to evaluate the patient so graphic art technician will await their recommendations for further discharge [...] the same level. At this time, the graphic art technician will await physical and occupational therapy's recommendations to assess if a rehab facility would be feasible, as this is the patient's preferred discharge plan. After reviewing the patient's chart and meeting with the patient, the graphic art technician deemed the LACE+/readmission questions were not necessary. [...] dismissal will be provided by family--Lia . graphic art technician recommended private pay home services such as housekeeping, assistance with ADLs, private caregivers, Life Alert services, etc. and reaching out to family, friends, and neighbors for assistance. graphic art technician provided information regarding the dismissal process. graphic art technician placed or requested the following hospital-based consult orders and/or referrals: None. graphic art technician will continue to assess for homegoing needs with the interdisciplinary team. graphic art technician encouraged the patient to reach out with [...] mg, 2 tablets twice daily. Last dose: 10 am. DIABETES COMPLICATIONS Neuropathy - peripheral. CO-MORBIDITIES [...] Thank you for the consult. DCS pager [phone] will follow. Call primary service for diabetes concerns between [phone]. Primary service to contact DCS via hospital sling operator for questions. documented in this encounter [...] with all her belongings to go to [facility]. Svetlana Núñez R.N. - 12/26/2021 6:20 [...] 3:40 PM CDT SURGEON: Dr. Wilmer Kearns. AUTOMATION TENDER: Dr. Tho Heredia. PRE-OPERATIVE DIAGNOSIS Progressive cervical [...] Obstructive sleep apnea. Restless legs syndrome. A residential real estate assistant actively participated in one or more of the following: Opening, exposure and visualization during the case, maintaining hemostasis, wound closure. INDICATIONS: Treatment of pain, prevention of neurologic decline. PROCEDURE(S): Application of Shaver-Wells tongs for positioning. Neurophysiologic monitoring to include running EMG, SSEPs, and MEPs. Dome laminectomy, C3, C7. Laminoplasty C4-6. ANESTHESIA: General endotracheal. IMPLANTS: Retevo laminoplasty set. HISTORY OF PRESENT ILLNESS: Ms. [...] to ensure good range of motion withthe Shaver-Wells tongs, ensured adequate decompression across the laminoplasty [...] by Social Work to start working on fpc facility placement. I anticipate discharge to a fpc facility in 3-4 nights. TPR: 2, Decompression and laminoplasty Wilmer Kearns M.D. CT CT Job ID: [id number]/[facility] documented in this encounter Miscellaneous Notes Hospital [...] CERVICAL PM CDT Cervical (HCC) Case Notes analytical chemist 1003 GLUCOSE POCT, B Routine 12/24/2021 11:46 AM CDT R esults for this procedure are in the results sec tion. IONM - EMG Routine 12/24/2021 9:59 AM CDT Resul ts for this procedure are in the results sec tion. documented in this encounter Results (ABNORMAL) Glucose, POCT (12/28/2021 12:13 PM CDT) Analysis Performed At Patho logist [...] Provider LAB POCT ORDERABLES-MANUAL Performing Organization Address City/[facility] Phon e Number [facility] [address] [place] [address] [place] [address] [place] P[facility] [address] [facility] (ABNORMAL) Glucose, POCT (12/28/2021 7:41 AM CDT) Analysis Performed At Patho logist Time Signature Glucose, POCT, 226 (H) 70 - 140 12/28/2021 PCLX B mg/dL 7:48 AM CDT Site Capillary 12/28/2021 PCLX 7:48 AM CDT Last Intake 3-4 hours 12/28/2021 PCLX 7:48 AM CDT Specimen Anatomical Collection Method Collection Time Receive d Time (Source) Location / / Volume Laterality Blood 12/28/2021 7:41 AM 7:49 CDT AM CDT Unknown Provider LAB POCT ORDERABLES-MANUAL Performing Organization Address City/[facility]/ZIP Code Phon e Number POC [facility] [address] [place] [address] [place] [address] [place] [facility] [address] (ABNORMAL) Glucose, POCT (12/28/2021 3:15 AM CDT) Analysis Performed At [facility] Signature Glucose, POCT, 181 (H) 70 - 140 12/28/2021 PCLX B mg/dL 3:19 AM CDT Site Capillary 12/28/2021 PCLX 3:19 AM CDT Last Intake 3-4 hours 12/28/2021 P[facility] 3:19 AM CDT Specimen Anatomical Collection Method Collection Time Receive d Time (Source) Location / / Volume Laterality Blood 12/28/2021 3:15 AM 3:19 CDT AM CDT Unknown Provider LAB POCT ORDERABLES-MANUAL Performing Organization Address City/State/ZIP Code Phon e Number [facility]OC [facility] [address] [place] [address] [place] [address] [place] [facility] [address] (ABNORMAL) Glucose, POCT (12/27/2021 9:01 PM CDT) Analysis Performed At [facility] Signature Glucose, POCT, 168 (H) 70 - 140 12/27/2021 PCLX B mg/dL 9:12 PM CDT Site Capillary 12/27/2021 PCLX 9:12 PM CDT Specimen Anatomical Collection Method Collection Time Receive d Time (Source) Location / / Volume Laterality Blood 12/27/2021 9:01 PM 9:12 CDT PM CDT Unknown Provider LAB POCT ORDERABLES-MANUAL Performing Organization Address City/State/ZIP Code Phon e Number [facility]OC [facility] [address] [place] [address] [place] [address] [place] [facility] [address] (ABNORMAL) Glucose, POCT (12/27/2021 4:33 PM CDT) Analysis Performed At [facility] Signature Glucose, POCT, 236 (H) 70 - 140 12/27/2021 PCLX B mg/dL 5:02 PM CDT Site Capillary 12/27/2021 PCLX 5:02 PM CDT Last Intake 3-4 hours 12/27/2021 PCL[facility] 5:02 PM CDT Specimen Anatomical Collection Method Collection Time Receive d Time (Source) Location / / Volume Laterality Blood 12/27/2021 4:33 PM 5:02 CDT PM CDT Unknown Provider LAB POCT ORDERABLES-MANUAL Performing Organization Address City/State/ZIP Code Phon e Number [facility]OC [facility] [address] [place] [address] [place] [address] [place] [facility] [address] [facility] (ABNORMAL) Glucose, POCT (12/27/2021 12:54 PM CDT) [...] Provider LAB POCT ORDERABLES-MANUAL Performing Organization Address City/[facility] Phon e Number POC [facility] [address] [place] [address] [place] [address] [place] [facility] 200 [facility] (ABNORMAL) Glucose, POCT (12/27/2021 7:46 AM CDT) Analysis Performed At Patho logist Time Signature Glucose, POCT, 210 (H) 70 [...] Provider LAB POCT ORDERABLES-MANUAL Performing Organization Address City/[facility]/ZIP [facility] Phon e Number [facility]OC [facility] [address] [place] [address] [place] [address] [place] [facility] [address] (ABNORMAL) Glucose, POCT (12/27/2021 2:32 AM CDT) Analysis Performed At Patho logis Time Signature Glucose, POCT, 180 (H) 70 - 140 12/27/2021 PCLX B mg/dL 6:28 AM CDT Site Capillary 12/27/2021 PCLX 6:28 AM CDT Last Intake > 4 hours 12/27/2021 PCL[facility] 6:28 AM CDT Specimen Anatomical Collection Method Collection Time Receive d Time (Source) Location / / Volume Laterality Blood 12/27/2021 2:32 AM 6:28 CDT AM CDT Unknown Provider LAB POCT ORDERABLES-MANUAL Performing Organization Address City/State/ZIP Code Phon e Number [facility] [address] [place] [address] [place] [address] [place] [facility] [address] (ABNORMAL) Glucose, POCT (12/26/2021 9:20 PM CDT) Analysis Performed At [facility] Signature Glucose, POCT, 180 (H) 70 - 140 12/26/2021 PCLX B mg/dL 9:35 PM CDT Last Intake 3-4 hours 12/26/2021 PCL[facility] 9:35 PM CDT Specimen Anatomical Collection Method Collection Time Receive d Time (Source) Location / / Volume Laterality Blood 12/26/2021 9:20 PM 9:35 CDT PM CDT Unknown Provider LAB POCT ORDERABLES-MANUAL Performing Organization Address City/State/[facility] Code Phon e Number [facility]OC [facility] [address] [place] [address] [place] [address] [place] [facility] [address] (ABNORMAL) Glucose, POCT (12/26/2021 5:12 PM CDT) Analysis Performed At Patho logis Time Signature Glucose, POCT, 152 (H) 70 - 140 12/26/2021 PCLX B mg/dL 5:45 PM CDT Site Capillary 12/26/2021 PCLX 5:45 PM CDT Last Intake 3-4 hours 12/26/2021 PCL[facility] 5:45 PM CDT Specimen Anatomical Collection Method Collection Time Receive d Time (Source) Location / / Volume Laterality Blood 12/26/2021 5:12 PM 5:46 CDT PM CDT Unknown Provider LAB POCT ORDERABLES-MANUAL Performing Organization Address City/[facility] Phon e Number POC [facility] [address] [place] [address] [place] [address] [place] [facility] [address] (ABNORMAL) Glucose, POCT (12/26/2021 12:37 PM CDT) [...] Provider LAB POCT ORDERABLES-MANUAL Performing Organization Address City/[facility] Phon e Number POC [facility] [address] [place] [address] [place] [address] [place] [facility] [address] [facility] (ABNORMAL) Glucose, POCT (12/26/2021 7:50 AM CDT) Analysis Performed At Patho logist Time Signature Glucose, POCT, 245 (H) 70 - 140 12/26/2021 PCLX B mg/dL 7:54 AM CDT Site Capillary 12/26/2021 PCLX 7:54 AM CDT Specimen Anatomical Collection Method Collection Time Receive d Time (Source) Location / / Volume Laterality Blood 12/26/2021 7:50 AM 7:55 CDT AM CDT Unknown Provider LAB POCT ORDERABLES-MANUAL Performing Organization Address City/[facility] Phon e Number [facility]OC [facility] [address] [place] [address] [place] [address] [place] [facility] [address] (ABNORMAL) Glucose, POCT (12/26/2021 1:13 AM CDT) Analysis Performed At Patho logist Time Signature Glucose, POCT, 221 (H) [...] Provider LAB POCT ORDERABLES-MANUAL Performing Organization Address City/[facility] Phon e Number POC [facility] [address] [place] [address] [place] [address] [place] [address] POC 200 [facility] (ABNORMAL) Glucose, POCT (12/25/2021 9:21 PM CDT) Analysis Performed At Path logis Time Signature Glucose, POCT, 218 (H) 70 [...] Provider LAB POCT ORDERABLES-MANUAL Performing Organization Address [facility] Phon e Number POC [facility] [address] [place] [address] [place] [address] [place] [facility] [address] [facility] (ABNORMAL) Glucose, POCT (12/25/2021 4:17 PM CDT) [...] Provider LAB POCT ORDERABLES-MANUAL Performing Organization Address City/[facility]/ZIP Code Phon e Number [facility]OC [facility] [address] [place] [address] [place] [address] [place] [facility] 200 [facility] (ABNORMAL) Glucose, POCT (12/25/2021 11:45 AM CDT) [...] Provider LAB POCT ORDERABLES-MANUAL Performing Organization Address [facility] Phon e Number [facility]OC [facility] [address] [place] [address] [place] [address] [place] [facility] 200 [facility] (ABNORMAL) Glucose, POCT (12/25/2021 8:56 AM CDT) Analysis Performed At Patho logist Time Signature Glucose, POCT, 188 (H) 70 - 140 12/25/2021 PCLX B mg/dL 10:05 AM CDT Site Capillary 12/25/2021 PCLX 10:05 AM CDT Last Intake 1-2 hours 12/25/2021 PCLX 10:05 AM CDT Specimen Anatomical Collection Method Collection Time Receive d Time (Source) Location / / Volume Laterality Blood 12/25/2021 8:56 AM CDT 10:05 AM CDT Unknown Provider LAB POCT ORDERABLES-MANUAL Performing Organization Address City/[facility]/ZIP [facility] Phon e Number [facility]OC [facility] [address] [place] [address] [place] [address] [place] [facility] 200 [facility] (ABNORMAL) Glucose, POCT (12/25/2021 7:56 AM CDT) [...] Provider LAB POCT ORDERABLES-MANUAL Performing Organization Address City/[facility]/ZIP Code Phon e Number [facility] [address] [place] [address] [place] [address] [place] [facility] 200 [facility] Glucose, POCT (12/25/2021 6:53 AM CDT) Analysis [...] Provider LAB POCT ORDERABLES-MANUAL Performing Organization Address City/[facility]/ZIP Code Phon e Number [facility] [address] [place] [address] [place] [address] [place] [facility] [address] [facility] Glucose, POCT (12/25/2021 5:57 AM CDT) P athologist Signature Glucose, POCT, 110 70 - 140 12/25/2021 PCLX B mg/dL 6:01 AM CDT Specimen Anatomical Collection Method Collection Time Receive d Time (Source) Location / / Volume Laterality Blood 12/25/2021 5:57 AM 2 6:01 CDT AM CDT Unknown Provider LAB POCT ORDERABLES-MANUAL Performing Organization Address City/State/ZIP Code Phon e Number [facility]OC [facility] [address] [place] [address] [place] [address] [place] [facility] [address] [facility] DX Cervical Spine 2-3 Views (12/25/2021 [...] Abdon Gill M.D. IMG DIAGNOSTIC IMAGING PROCE DURES Glucose, POCT (12/25/2021 4:49 AM CDT) P athologist Signature Glucose, POCT, 131 70 - 140 12/25/2021 PCLX B mg/dL 4:52 AM CDT Specimen Anatomical Collection Method Collection Time Receive d Time (Source) Location / / Volume Laterality Blood 12/25/2021 4:49 AM 4:53 CDT AM CDT Unknown Provider LAB POCT ORDERABLES-MANUAL Performing Organization Address City/State/ZIP Code Phon e Number [facility]OC [facility] [address] [place] [address] PCLX [facility] [place] [address] [place] [facility] [address] (ABNORMAL) Glucose, POCT (12/25/2021 3:45 AM CDT) [...] Provider LAB POCT ORDERABLES-MANUAL Performing Organization Address City/[facility]/ZIP Code Phon e Number [facility]OC [facility] [address] [place] [address] [place] [address] [place] [facility] [address] (ABNORMAL) Glucose, POCT (12/25/2021 2:38 AM CDT) P athologist Signature Glucose, POCT, 255 (H) 70 - 140 12/25/2021 PCLX B mg/dL 2:41 AM CDT Specimen Anatomical Collection Method Collection Time Receive d Time (Source) Location / / Volume Laterality Blood 12/25/2021 2:38 AM 2 2:41 CDT AM CDT Unknown Provider LAB POCT ORDERABLES-MANUAL Performing Organization Address City/[facility] Phon e Number [facility]OC [facility] [address] [place] [address] [place] [address] [place] [facility] [address] (ABNORMAL) Glucose, POCT (12/25/2021 1:47 AM CDT) P athologist Signature Glucose, POCT, 282 (H) 70 - 140 12/25/2021 PCLX B mg/dL 1:49 AM CDT Specimen Anatomical Collection Method Collection Time Receive d Time (Source) Location / / Volume Laterality Blood 12/25/2021 1:47 AM 2 1:49 CDT AM CDT Unknown Provider LAB POCT ORDERABLES-MANUAL Performing Organization Address City/[facility] Phon e Number [facility]OC [facility] [address] [place] [address] [place] [address] [place] [facility] [address] (ABNORMAL) Glucose, POCT (12/25/2021 12:44 AM CDT) P athologist Signature Glucose, POCT, 283 (H) 70 - 140 12/25/2021 PCLX B mg/dL 1:49 AM CDT Specimen Anatomical Collection Method Collection Time Receive d Time (Source) Location / / Volume Laterality Blood 12/25/2021 12:44 12/25/2021 1:49 AM CDT AM CDT Unknown Provider LAB POCT ORDERABLES-MANUAL Performing Organization Address City/[facility] Phon e Number POC [facility] [address] [place] [address] [place] [address] [place] [facility] [address] (ABNORMAL) Glucose, POCT (12/24/2021 11:45 PM CDT) P athologist Signature Glucose, POCT, 215 (H) 70 - 140 12/24/2021 PCLX B mg/dL 11:53 PM CDT Specimen Anatomical Collection Method Collection Time Receive d Time (Source) Location / / Volume Laterality Blood 12/24/2021 11:45 12/24/2021 PM CDT 11:53 PM CDT Unknown Provider LAB POCT ORDERABLES-MANUAL Performing Organization Address City/[facility] Phon e Number [facility]OC [facility] [address] [place] [address] [place] [address] [place] [facility] [address] (ABNORMAL) Glucose, POCT (12/24/2021 10:37 PM CDT) [...] Provider LAB POCT ORDERABLES-MANUAL Performing Organization Address City/[facility]/ZIP [facility] Phon e Number [facility]OC [facility] [address] [place] [address] [place] [address] [place] [facility] [address] (ABNORMAL) Glucose, POCT (12/24/2021 9:42 PM CDT) P athologist Signature Glucose, POCT, 165 (H) 70 - 140 12/24/2021 PCLX B mg/dL 9:49 PM CDT Specimen Anatomical Collection Method Collection Time Receive d Time (Source) Location / / Volume Laterality Blood 12/24/2021 9:42 PM 2 9:49 CDT PM CDT Unknown Provider LAB POCT ORDERABLES-MANUAL Performing Organization Address City/[facility]/ZIP Code Phon e Number [facility] [address] [place] [address] [place] [address] [place] [facility] [address] [facility] (ABNORMAL) Glucose, POCT (12/24/2021 8:41 PM CDT) [...] / Volume Laterality Blood 12/24/2021 8:41 PM 2 8:46 CDT PM CDT Unknown Provider LAB POCT ORDERABLES-MANUAL Performing Organization Address City/[facility] Phon e Number [facility]OC [facility] [address] [place] [address] [place] [address] [place] [facility] [address] [facility] (ABNORMAL) CBC without Differential (12/24/2021 8:41 [...] Organization Address City/State/ZIP Code Phon e Number [facility] - [facility] [address] [place] [address] [facility] [place] [address] Laboratories-[facility] [address] [facility] [address] [facility] (ABNORMAL) Basic Metabolic Panel (12/24/2021 8:41 [...] - 140 mg/dL 12/24/2021 10:01 PM CDT DT Specimen Anatomical Collection Method Collection Time Receive d Time (Source) Location / / Volume Laterality Blood (Blood, 12/24/2021 8:41 PM 12/25/19 9:44 Venous) CDT PM CDT Abdon Gill M.D. LAB BLOOD ADD-ON Performing Organization Address City/[facility] Phon e Number [facility] - [address] [place], [place] [address] [place] [address] [facility] [address] [facility] (ABNORMAL) Glucose, POCT (12/24/2021 7:46 PM CDT) athologist Signature Glucose, POCT, 148 (H) 70 - 140 12/24/2021 PCLX B mg/dL 7:50 PM CDT Specimen Anatomical Collection Method Collection Time Receive d Time (Source) Location / / Volume Laterality Blood 12/24/2021 7:46 PM 7:50 CDT PM CDT Unknown Provider LAB POCT ORDERABLES-MANUAL Performing Organization Address City/[facility] Phon e Number [facility]OC [facility] [address] [place] [address] [place] [address] [place] [facility] 200 [facility] (ABNORMAL) Glucose, POCT (12/24/2021 6:41 PM CDT) P athologist Signature Glucose, POCT, 163 (H) 70 - 140 12/24/2021 PCLX B mg/dL 7:30 PM CDT Specimen Anatomical Collection Method Collection Time Receive d Time (Source) Location / / Volume Laterality Blood 12/24/2021 6:41 PM 2 7:30 CDT PM CDT Unknown Provider LAB POCT ORDERABLES-MANUAL Performing Organization Address City/[facility] Phon e Number [facility] [address] [place] [address] [place] [address] [place] [facility] [address] [facility] (ABNORMAL) Glucose, POCT (12/24/2021 5:35 PM CDT) [...] Address City/State/ZIP Code Phon e Number [facility] [address] [place] [address] [place] [address] [place] [facility] [address] (ABNORMAL) Glucose, POCT (12/24/2021 4:33 PM CDT) athologist Signature Glucose, POCT, 233 (H) 70 - 140 12/24/2021 PCSM B mg/dL 4:36 PM CDT Site ARTLINE 12/24/2021 PCSM 4:36 PM CDT Specimen Anatomical Collection Method Collection Time Receive d Time (Source) Location / / Volume Laterality Blood 12/24/2021 4:33 PM 2 4:36 CDT PM CDT Unknown Provider LAB POCT ORDERABLES-MANUAL Performing Organization Address City/State/ZIP Code Phon e Number POC RST [facility] INPATIENT [address] [place], [place] [address] [place] [address] [place] [facility] [address] [place] Fluoro Less Than 1 Hour (12/24/2021 3:22 PM CDT) Specimen (Source) Anatomical Location Collection Method / Collectio n Time Received Time / Laterality Volume Narrative 152 HOS LOS RST - 12/24/2021 3:24 PM CDT This exam does not require a radiologist review or interpretation. Please refer to the patient's medical record on this date for clinical details. Wilmer Kearns M.D. IMDomingo FLUOROSCOPY PROCEDURES Performing Organization Address City/State/ZIP Code Phon e Number 152 HOS LOS [...] Organization Address City/State/ZIP Code Phon e Number [facility] - [address] [place], [place] [address] [place] [address] [facility] [address] (ABNORMAL) Glucose, Whole Blood (12/24/2021 2:57 PM CDT) P athologist Signature Glucose 231 (H) 70 - 140 12/24/2021 [facility] mg/dL 2:58 PM CDT Specimen Anatomical Collection Method Collection Time Receive d Time (Source) Location / / Volume Laterality Blood (Blood, 12/24/2021 2:57 PM 12/25/19 2:57 Arterial Line) CDT PM CDT Milton Davis M.D. LAB BLOOD TROPONIN Performing Organization Address City/[facility]/ZIP Code Phon e Number [facility] - [address] [place], [place] [address] [place] [address] [facility] [address] Potassium, Blood (12/24/2021 2:57 PM CDT) P athologist Signature Potassium, B 3.7 3.6 - 5.2 12/24/2021 [facility] mmol/L 2:58 PM CDT Specimen Anatomical Collection Method Collection Time Receive d Time (Source) Location / / Volume Laterality Blood (Blood, 12/24/2021 2:57 PM 12/25/19 2:57 Arterial Line) CDT PM CDT Milton Davis M.D. LAB BLOOD NON ADD-ON Performing Organization Address City/State/ZIP Code Phon e Number [facility] - [address] [place], [place] [address] [facility] [place] [address] [facility] [address] Sodium, B (12/24/2021 2:57 PM CDT) athologist Signature Sodium, B 135 135 - 145 12/24/2021 2:58 [facility] mmol/L PM CDT Specimen Anatomical Collection Method Collection Time Receive d Time (Source) Location / / Volume Laterality Blood (Blood, 12/24/2021 2:57 PM 12/25/19 2:57 Arterial Line) CDT PM CDT Milton Davis M.D. LAB BLOOD NON ADD-ON Performing Organization Address City/[facility] Phon e Number [facility] - [address] Calcium, Ionized (12/24/2021 2:57 PM CDT) athologist Signature Calcium, 4.85 4.65 - 5.30 12/24/2021 [facility] Ionized, B mg/dL 2:58 PM CDT Specimen Anatomical Collection Method Collection Time Receive d Time (Source) Location / / Volume Laterality Blood (Blood, 12/24/2021 2:57 PM 12/25/19 2:57 Arterial Line) CDT PM CDT Milton Davis M.D. LAB BLOOD NON ADD-ON Performing Organization Address City/[facility] Phon e Number [facility] - [address] [place] [address] [place] [id number] [place] [address] (ABNORMAL) Blood Gas with Coox, Arterial (12/24/2021 [...] LAB BLOOD NON ADD-ON Performing Organization Address City/[facility]/ZIP Code Phon e Number [facility] - [address] [place] [address] [facility] (ABNORMAL) Glucose, POCT (12/24/2021 2:16 PM CDT) [...] Address City/State/ZIP Code Phon e Number POC [facility] [address] [place] [address] [place] [address] [facility] [address] [place] [address] (ABNORMAL) Glucose, POCT (12/24/2021 11:46 AM CDT) [...] Address City/State/ZIP Code Phon e Number POC [facility] [address] [place] [address] [facility] [place] [address] [place] [facility] [address] IONM - EMG (12/24/2021 9:59 AM CDT) Specimen (Source) Anatomical Collection Method Collection Time Re ceived Time Location / / Volume Laterality 12/24/2021 10:00 AM CDT Narrative [facility]G - 12/24/2021 3:40 PM CDT Table formatting from the original result was not included. 24-Dec-2021 ? Intraopera tive Monitoring ? Final Report Study Number: 2 EMG Thread Winder: Indra Mallory . 127 or [phone] Referred by: WILMER KEARNS (127 or [phone]) Referred for: Referral Code: ?1957 RX: 1957 [...] surg ical suite. Geri Mallory (127 or [phone])/[facility] Surgery ? Staff Minutes Start-DateTime End-DateTim e Remote Simultaneous Supervision 131 12/15 13:02 PM MACHINE OPERATOR PICKER 12/24/2021 15:13 PM MACHINE OPERATOR PICKER Remote Exclusive (1:1) Supervision 0 12/2021 00:00 AM MACHINE OPERATOR PICKER 12/24/2021 00:00 AM MACHINE OPERATOR PICKER In-Room Exclusive (1:1) Supervision 0 00:00 AM MACHINE OPERATOR PICKER 12/24/2021 00:00 AM MACHINE OPERATOR PICKER Total Monitoring Time: 131 ?? This interpretation has been electron ically signed: Indra Mallory MD at 12/24/2021 3:16:44 PM CDT Procedure Note Indra Mallory M.D. - 12/24/2021Formatt ing of this note is different from the original. 24-Dec-2021 Intraoperative Monitoring Fi nal Report Study Number: 2 EMG Thread Winder: Indra Mallory . 127 or [phone] Referred by: WILMER KEARNS (127 or [phone]) Referred for: Referral Code: 1958 RX: 1958 SUMMARY: Somatosensory evoked potentials (SEPs), [...] surg ical suite. Geri Mallory (127 or [phone])/[facility] Surgery Staff Minutes Start-DateTime End-DateTim e Remote Simultaneous Supervision 131 12/15 13:02 PM MACHINE OPERATOR PICKER 12/24/2021 15:13 PM MACHINE OPERATOR PICKER Remote Exclusive (1:1) Supervision 0 12/2021 00:00 AM MACHINE OPERATOR PICKER 12/24/2021 00:00 AM MACHINE OPERATOR PICKER In-Room Exclusive (1:1) Supervision 0 00:00 AM MACHINE OPERATOR PICKER 12/24/2021 00:00 AM MACHINE OPERATOR PICKER Total Monitoring Time: 131 This interpretation has been electron ically signed: Indra Mallory MD at 12/24/2021 3:16:44 PM CDT Wilmer Kearns M.D. NEUROLOGY ORDERABLES Performing Organization Address City/State/ZIP Code Phon e Number EMG documented in this encounter Visit Diagnoses Diagnosis Myelopathy Cervical (HCC) - Primary Myelopathy Cervical (HCC) Decline Functional Status [R53.81 (ICD-1 0-CM)] Diabetes Mellitus Type 2 With Diabetic N europathy (HCC) Myelopathy Cervical (HCC) documented in this encounter Admitting Diagnoses [...] Given 12/27/2021 8:56 PM CDT 1,000 mg bisacodyL suppository 10 mg (DULCOLAX) 10 mg, [...] 200 mg of elemental calc ium. ceFAZolin 1 g in NaCl 0.9% irrigation pour Given 12/24 3:13 PM CDT 1,000 mL bottle irrigation, Once in surgery, OR use only, Starting on Fri12/24/21 at 1014, For 1 dose, Intra-Op, Irrigation Use Only Refrigerate diazePAM tablet 5 mg (VALIUM) Given 12/27/2021 5:36 AM CDT 5 mg 5 mg, oral, 3 times daily PRN, muscle spasms, Starting on Fri12/25/21 at 0600 hydroCHLOROthiazide tablet 25 mg (HYDROD IURIL) Given [...] of 3 doses. insulin aspart U-100 Given 12/28/2021 1:30 PM [...] service writing Insulin orders insulin glargine injection Given 12/28/2021 8:53 AM CDT 22 Units Right Lower Abdomen 22 Units 22 Units, subcutaneous, Every morning, First dose (after last modification) on Dorcas 12/27/21 at 0900 Given 12/27/2021 8:16 AM CDT 22 Units Left Lower Abdomen magnesium hydroxide suspension 30 mL (UT LK OF MAGNESIA) 30 mL, oral, Daily PRN, constipation, St arting on 12/24/21 at 1831, Give if no bowel movement by post-operative day 3. menthol lozenge 1 lozenge 1 lozenge, oral, As needed, sore throat, Starting on M on 12/24/21 at 1831 naloxone injection 0.2 mg (NARCAN) 0.2 mg, intravenous, As needed, respirat ory depression, Starting on 12/24/21 at 1831, For RASS Score -4 or less, respiratory rate of l ess than 8 breaths/min. Notify provider/service and rapid response team (if av ailable at institution). oxyCODONE IR tablet 10 mg (ROXICODONE) Given 12/28/2021 2:53 PM CDT 10 mg 10 mg, oral, Every 4 hours PRN, severe pain or score 7-10 of 10, or pain greater than comfort goal if other analgesics fail, Starting on 12/24/21 at 1831, Maximum dose of 10 mg in 4 hours Given 12/28/2021 6:09 AM CDT 10 mg Given 12/28/2021 12:48 AM CDT 10 mg oxyCODONE IR tablet 5 mg (ROXICODONE) Given 12/26/2021 1:13 PM CDT 5 mg 5 mg, oral, Every 4 hours PRN, moderate pain or score 4-6 of 10, if other analgesics fail, Starting on 12/24/21 at 1831, Maximum dose of 10 mg [...] Given 12/26/2021 8:04 AM CDT 17 g povidone iodine 0.25% in NaCl 0.9% Given 12/24/2021 3:13 PM CDT 1,000 mL irrigation solution irrigation, Once in surgery, OR use only, Starting on Fri12/24/21 at 1014, For 1 dose, Intra-Op, IRRIGATION USE ONLY pramipexole tablet 0.25 mg (MIRAPEX) Given 12/27/2021 8:56 PM CDT 0.25 mg 0.25 mg, oral, Daily at bedtime, First dose (after last modification) on Fri12/26/21 at 2100 Given 12/26/2021 9:22 PM CDT 0.25 mg pramipexole tablet 0.375 mg (MIRAPEX) Given 12/28/2021 1:34 PM CDT 0.375 mg 0.375 mg, oral, Every evening, First dose on Fri12/26/21 at 1800 Given 12/27/2021 1:40 PM CDT 0.375 mg Given 12/26/2021 5:46 PM CDT 0.375 mg pregabalin capsule 100 mg (LYRICA) Given 12/28/2021 1:27 PM CDT 100 mg 100 mg, oral, Daily, First dose on Fri12/27/21 at 1400 Given 12/27/2021 1:40 PM CDT 100 mg pregabalin capsule 150 mg (LYRICA) Given 12/28/2021 8:42 AM CDT 150 mg 150 mg, oral, 2 times daily, First dose on Fri12/25/21 at 0900 Given 12/27/2021 8:56 PM CDT 150 mg Given 12/27/2021 8:09 AM CDT 150 mg sennosides-docusate sodium 8.6-50 mg per Given 12/28/2021 [...] PRN, sleep, Starting on Fri12/24/21 at 2333 vancomycin powder 1 g Given 12/24/2021 3:15 PM CDT 1 vial 1 g (1 vial), topical, Once in surgery, OR use only, Starting on Fri12/24/21 at 1014, For 1 dose, Intra-Op, Do not reconstitute venlafaxine XR 24 hr capsule 225 mg [...] (TYLENOL) 0803 (Given - Provider: Ketan Alfaro RCandyN.)1245 (Given - Provider: Ketan Alfaro R.N.)1713 (Given - Provider: Ranjana Roman R.N.)2122 (Given - Provider: Francie Pritchett R.N.) 0808 (Given - Provider: Jenni Bettencourt RCandyN.)1137 (Not Given - Provider: Yesenia Hawk RLiss - Reason: See Provider Order)1701 (Given - Provider: Toyin Wagner RCandyN.)2056 (Given - Provider: Toyin Wagner RCandyN.) 0843 (Given - Provider: Lala Rivers R.N.)1327 (Given - Provider: Lala Rivers R.N.) 1,000 mg, oral, 4 times daily, First dos e on Fri12/24/21 at 2100, Not to exceed 4 grams in 24 hours. ceFAZolin in dextrose (iso-os) IVPB 2 g (ANCEF) (CANCE LED) 0539 (New Bag - Provider: Svetlana Núñez R.N.) 2 g, intravenous, at 200 mL/hr, Administ er over 30 Minutes, Every 8 hours, First dose on Fri12/24/21 at 2200, Continue until drain removal, Drug Monitoring Program: Pharmacist to adjust medication dosi ng based on indication and drug clearanc e factors., Indications: Prophylaxis, surgical hydroCHLOROthiazide tablet 25 mg (HYDRODIURIL) 0803 (G hipolito - Provider: Ketan Alfaro R.N.) 0809 (Given - Provider: Jenni Bettencourt RCandyNCandy) 0843 (Given - Provider: Lala Rivers RCandyNCandy) 25 mg, oral, Daily, First dose on Fri12/25/21 at 0900 insulin aspart U-100 (Carbohydrate Count ) injection 0-20 Units (NovoLOG FlexPen) (CANCELED) 0810 (Given - Provider: Ketan Alfaro R.N .)1242 (Given - Provider: Burton YanceyNCandy) 0-20 Units, subcutaneous, 3 times daily with meals, First dose on Fri12/25/21 at 0845, Simple or Complex Ratio: Simple, Carb Ratio - Simple (1 unit per __ grams of carbohydrates): 10 insulin aspart U-100 (Carbohydrate Count ) injection 0-20 Units (NovoLOG FlexPen) 1742 (Given - Provider: Ranjana Roman R.N.) 0917 (G iven - Provider: Ang Lopez RCandyNCandy)1341 (Given - Provider: Yesenia Hawk RCandyNCandy)1802 (Given - Provider: Toyin Wagner RCandyNCandy) 0837 (Given - Provider: Lala Rivers RLiss)1330 (Given - Provider: Lala Rivers R.N. - [...] Comment: bg 287)1743 (Given - Provider: Ranjana Roman, R.N.) 0758 (Given - Provider: Jenni Bettencourt R.N. - Comment: RMG 210)1342 (Given - Provider: Yesenia Hawk RCandyN.)1800 (Given - Provider: Toyin Wagner R.N.) 0836 (Given - Provider: Lala Rivers R.N.)1328 [...] Pen) 2120 (Not Given - Provider: Francie Pritchett, R.N. - Reason: Order parameters not met) 2101 (Not Given - Provider: Toyin Wagner RCandyN. - Reason: Order parameters not met - [...] (NovoLOG FlexPen) 0235 (Given - Provider: Francie Pritchett R.N.) 0320 (Not Given - Provider: Mitzy [...] insulin glargine injection 20 Units (CANCELED) 0835 (Domingo gaminoen - Provider: Ketan Alfaro RLiss) 20 Units, subcutaneous, Every morning, F irst dose (after last modification) on Fri12/26/21 at 0900 insulin glargine injection 22 Units 0816 (Given - Provider: Jenni Bettencourt RLiss) 0853 (Given - Provider: Lala Rivers R.N.) [...] Indications: constipation pramipexole tablet 0.25 mg (MIRAPEX) 2 (Given - Pro vider: Francie Pritchett RCandyNCandy) 2056 (Given - Provider: Toyin Wagner RCandyNCandy) 0.25 mg, oral, Daily at bedtime, First d ose (after last modification) on Fri12/26/21 at 2100 pramipexole tablet 0.375 mg (MIRAPEX) 1746 (Given - Pr ovider: Ranjana Roman RCandyNCandy) 1340 (Given - Provider: Yesenia Hawk R.N.) 1334 ( Given - Provider: Lala iRvers R.N.) 0.375 mg, oral, Every evening, First dose on Fri12/26/21 at 180 0 pregabalin capsule 100 mg (LYRICA) 1340 (Given - Provider: Yesenia Hawk R.N.) 1327 (Given - Provider: Lala Rivers R.N.) 100 mg, oral, Daily, First dose on Fri12/27/21 at 1400 pregabalin capsule 150 mg (LYRICA) 0803 (Given - Provi vanessa: Ketan Alfaro R.N.)2120 (Given - Provider: Francie Pritchett R.N.) 0809 (Given - Provider: Jenni Bettencourt R.N.)2055 (Given - Provider: Toyin Wagner R.N.) 0842 (Given - Provider: Lala Rivers R.N.) 150 mg, oral, 2 times daily, First dose on Fri12/25/21 at 0900 sennosides-docusate sodium 8.6-50 mg per tablet 1 tabl et (SENOKOT-S) 0803 (Given - Provider: Ketan Alfaro R.N.)2121 (Given - Provider: Francie Pritchett R.N.) 08 (Given - Provider: Jenni Bettencourt R.N.)2056 (Given - Provider: Toyin Wagner RLiss) 0843 (Given - Provider: Lala Rivers R.N.) 1 tablet, oral, 2 times daily, First dos e on Fri12/24/21 at 2100, For constipation. Hold for diarrhea. venlafaxine XR 24 hr capsule 225 mg (EFFEXOR-XR) 0803 (Given - Provider: Ketan Alfaro R.N.) 08 [...] oral, As needed, sore throat, Starting on Fri 2 at 1831 naloxone injection 0.2 mg (NARCAN) 0.2 mg, intravenous, As needed, respirat ory depression, Starting on Fri12/24/21 at 1831, For RASS Score -4 or less, respiratory rate of less than 8 breaths/min. Notify provider/service and rapid response team (if available at institution). oxyCODONE IR tablet 10 mg (ROXICODONE)(Linked Group 1) 0312 (Given - Provider: Svetlana Núñez R.N.)0800 (Given - Provider: Ketan Alfaro R.N.)1247 (Not Given - Provider: Ketan Alfaro R.N. - Reason: Patient/family refused)1313 (See Alternative - Provider: Ketan Alfaro R.N.) 0233 (Given - Provider: Francie Pritchett R.N.)0755 (Given - Provider: Jenni Bettencourt RCandyN.) 0048 (Given - Provider: Mitzy Almaguer R.N.)0609 (Given - Provider: Mitzy Almaguer R.N.)1453 (Given - Provider: Lala Rivers R.N.) 10 mg, oral, Every 4 hours PRN, severe p ain or score 7-10 of 10, or pain greater than comfort goal if other analgesics fail, Starting on Fri12/24/21 at 1831, Maximum dose of 10 mg in 4 hours 1852 (Given - Provider: Ranjana Roman RCandyN.) oxyCODONE IR tablet 5 mg (ROXICODONE)(Linked Group 1) 0312 (See Alternative - Provider: Svetlana Núñez RCandyNCandy)0800 (See Alternative - Provider: Ketan Alfaro R.N.)1247 (See Alternative - Provider: Ketan Alfaro R.N.)1313 (Given - Provider: Burton YanceyNCandy) 0233 (See Alternative - Provider: Francie Pritchett RLiss)0755 (See Alternative - Provider: Jenni Bettencourt RLiss) 0048 (See Alternative - Provider: Mitzy Almaguer R.N.)0609 (See Alternative - Provider: Mitzy Almaguer R.N.)1453 (See Alternative - Provider: Lala Rivers R.N.) 5 mg, oral, Every 4 hours PRN, moderate pain or score 4-6 of 10, if other analgesics fail, Starting on Fri12/24/21 at 1831, Maximum dose of 10 mg in 4 hours 1852 (See Alternative - Provider: Ranjana Roman RCandyN.) traZODone tablet 100 mg (DESYREL) 100 mg, [...] goal if other analgesics fail, Starting on 12/24/21 at 1831
Maximum dose of 10 mg in 4 hours
documented in this encounter Additional Health Concerns Assessment Noted Time PHQ-9 Depression Total Score: 5 04/29/2016 10:10 AM CS T documented as of this encounter
--- OUTSIDE RECORDS SUMMARY | 2022-01-12 12:33 | XMS_ITS | Encounter Summary ---
:1955 Author Organization [facility] Address [address] [place] [id number] Care Team Providers Name Role Phone Unavailable Primary Care Provider Unavailable Reason for Referral Outpatient (Routine) - Authorized Specialty Diagnoses / Procedures Referred By Contact Refer red To Contact Diagnoses Pain Low Back Unspecified Diabetes Mellitus Type 2 With Diabetic Neuropathy (HCC) Myelopathy Cervical (HCC) Pain Neuropathic Hypertension Essential Primary Constipation Spondylosis Lumbar Without Myelopathy Tendonitis Achilles Right Ernesto Hart M.D. [facility] Restless Leg Syndrome Anticoagulant Therapy Embolus Pulmonary Personal History Diabetes Mellitus Type 2 (HCC) Depression Major Recurrent Partial Remission (HCC) Arthroplasty Total Knee Replacement Status Post Bilateral Nodule Thyroid [address] [facility] [place] [address] Procedures ECG 12 Lead Referral ID Status Reason Start Date Expiration Date Visits V isits Requested Authorized [id number] Authorized 12/21/2021 12/21/2022 1 1 Reason for Visit Outpatient (Routine) - Closed Specialty Diagnoses / Procedures Referred By Contact Refer red To Contact Anesthesiology Diagnoses Preoperative Exam Buster Herrera M.D. [facility] [address] [place] [address] Referral ID Status Reason Start Date Expiration Date Visits Requ ested Visits Authorized [id number] Closed 11/14/2021 11/14/2022 1 1 Encounter Details Date Type Department Care Team Description 12/21/2021 Comprehensive Visit Preoperative Dago Herrera M.D. [address] [place] [id number] Preoperative Exam (Primary Dx); Evaluation Center in Ernesto Hart M.D. [address] [place] [id number] Pain Low Back Unspecified; [place], [place] Diabetes Mellitus Type 2 Wit h Diabetic Neuropathy (HCC); [address] [facility] Myelopathy Cervical (HCC); [place], [place]; [id number] Hypertension Essential Prima ry; [phone] Constipation; Spondylosis Lum bar Without Myelopathy; Tendonitis Achi lles Right; Restless Leg Sy ndrome; Anticoagulant T herapy; Embolus Pulmona ry Personal History; Diabetes Mellit us Type 2 (HCC); Depression Heena r Recurrent Partial Remission (HCC); Arthroplasty To roberth Knee Replacement Status Post Bilateral; Nodule Thyroid; Body Mass Index 40.0 To 44.9 Adult (HCC); Obstructive Sle ep Apnea Adult; Smoking Tobacco Use Personal History Social History Tobacco Use Types Packs/Day Years [...] or relatives? How often do you attend muslim or Never 2021 jew services? 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 Sex Assigned at Date Recorded Female 07/21/2017 2:58 PM CDT documented as of this encounter Last Filed Vital Signs Vital Sign Reading Time Taken Comments Blood Pressure 126/77 12/21/2021 10:26 AM CDT Pulse 78 12/21/2021 10:26 AM CDT Temperature 36 ??C (96.8 ??F) 12/21/2021 10:25 AM CDT Respiratory Rate - - Oxygen Saturation 94% 12/21/2021 10:26 AM CDT Inhaled Oxygen Concentration - - Weight 125 kg (275 lb 9.2 oz) 12/21/2021 10:25 AM CDT Height 174 cm (5' 8.5) 12/21/2021 10:25 AM CDT Body Mass Index 41.29 12/21/2021 10:25 AM CDT documented in this encounter H&P Notes Ernesto Hart M.D. - 12/21/2021 10:30 AM CDT Preoperative Medical Evaluation Patient Name: Yaz Adames Age: 66 y.o. Date of : 1955 Patient Address: [address] [place] [id number] Primary Care Provider: No primary care provider on file. Referring Physician: Buster Herrera M.D. Pending Procedure: C3-7 posterior laminoplasty Surgeon: Dr. Herrera The following portions of the patient's history were reviewed and updated as appropriate: allergies,current medications, outpatient medications, family history, medical history, social history, surgical history, and problem list. Current Medications: acyclovir (for_ZOVIRAX) 200 mg capsule, Take by mouth as needed. alcaftadine 0.25 % drops, INT 1 DROP IN OU D alpha lipoic acid 600 mg capsule, Take 600 mg by mouth at bedtime. amoxicillin (AMOXIL) 500 mg capsule, Take 500 mg by mouth. co-enzyme Q-10 (CO Q-10) 100 mg capsule, Take 1 capsule by mouth daily. CONTOUR NEXT LEV 2 CONTROL JONNY solution, U UTD CONTOUR NEXT STRIPS strips, 2 (two) times a day. for testing cranberry 400 mg capsule, Take by mouth daily. fluticasone propionate (FLOVENT HFA) 110 mcg/actuation inhaler, Inhale 1 puff 2 (two) times a day. FSH/FLX/PRIM/CUR/BOR/OM3,6,9 5 (OMEGA 3-6-9 FATTY ACIDS ORAL), Take 1 capsule by mouth daily. ginkgo biloba 40 mg tablet, Take 120 mg by mouth. glipiZIDE (GLUCOTROL XL) 5 mg 24 hr tablet, Take 5 mg by mouth daily. hydroCHLOROthiazide (for_HYDRODIURIL) 25 mg tablet, ibuprofen (ADVIL,MOTRIN) 800 mg tablet, Take 800 mg by mouth as needed. IRON,CARBONYL/ASCORBIC ACID (VITRON-C ORAL), Take 1 tablet by mouth 2 (two) times a day. loratadine (for_CLARITIN) 10 mg tablet, Take 1 tablet by mouth daily. mecobal-levomefolat Ca-B6 phos 3-35-2 mg tablet, TAKE 1 TABLET BY MOUTH TWICE DAILY metFORMIN (for_GLUCOPHAGE) 500 mg tablet, MICROLET LANCET misc, 2 (two) times a day. for testing multivitamin tablet, multivitamin nystatin (for_MYCOSTATIN) 100,000 unit/gram cream, oxyCODONE-acetaminophen (PERCOCET) 5-325 mg per tablet, Take 1-2 tablets by mouth 3 (three) times aday as needed. pramipexole (MIRAPEX) 0.125 mg tablet, Take 2 tablets by mouth daily. pregabalin (LYRICA) 150 mg capsule, Take 1 capsule (150 mg total) by mouth 2 (two) times a day. (Patient taking differently: Take 200 mg by mouth 3 (three) times a day. PT TAKES 150MG IN AM, 100MG IN AFTERNOON, AND 150MG IN PM.) traZODone (DESYREL) 100 mg tablet, Take 100 mg by mouth daily. Taking 2 tablets at bedtime turmeric root extract 500 mg capsule, Take by mouth daily. valACYclovir (VALTREX) 500 mg tablet, venlafaxine XR (EFFEXOR XR) 150 mg 24 hr capsule, Take 1 capsule by mouth daily. venlafaxine XR (EFFEXOR-XR) 75 mg 24 hr capsule, Take 75 mg by mouth daily. Take with 150 mg = 225 mg total daily. VOLTAREN 1 % gel, Xarelto 10 mg tablet, Take 10 mg by mouth daily. Preoperative assessment questions reviewed and completed Constitutional: Positive for fatigue. Genitourinary: Positive for urgency. Musculoskeletal: Positive for muscle pain/stiffness. Psychiatric/Behavioral: Positive for sleep disturbance. The following systems were negative: Skin, Eyes, ENT, Respiratory, Cardiovascular, Gastrointestinal,Hematologic, Neurological OBJECTIVE PHYSICAL EXAMINATION General/Constitutional Constitutional Assessment: Obese Airway (HEENT) R lower partial Mallampati: II TM Distance: >3 FB Neck ROM: Limited Mouth Opening: > 3 cm Upper Lip Bite Test: I Cardiovascular Regular rate rhythm. No murmurs appreciated on exam today. No rubs or rubs. Trace pitting edema in bilateral lower extremities. 2+ radial pulse on right, 1+ radial pulse on left. Pulmonary Anterior and posterior lung bowling clear to auscultation bilaterally. No wheezes, rhonchi, or rales. Neurological Neurologic Assessment: Alert Musculoskeletal MSK Assessment: Normal Ambulate with: Wheelchair Psychiatric Psychiatric Assessment: Calm Dermatology Skin Assessment: normal Assessment / Plan # Preoperative Exam # Body Mass Index 40.0 To 44.9 Adult ([facility]) # Hypertension Essential Primary # Diabetes Mellitus Type 2 ([facility]) # Diabetes Mellitus Type 2 With Diabetic Neuropathy ([facility]) # Depression Major Recurrent Partial Remission ([facility]) # Constipation # Spondylosis Lumbar Without Myelopathy # Tendonitis Achilles Right # Pain Low Back Unspecified # Myelopathy Cervical ([facility]) # Pain Neuropathic # Central Sensitization Sydrome Mrs. Adames is a pleasant 66 year old female presenting in preoperative clinic today prior to above listed procedure. Labs from 12/18/2021 significant for hemoglobin 14.8, platelet 340, white count 11.6, creatinine 0.07, INR 1.1, negative type and screen, hemoglobin A1c 9.0. Patient has been getting repeated echos dueto murmur, which I do not appreciate on exam today and has not been documented in our system. TTE from outside facility on 04/12/2021 with LVEF 69%, moderately enlarged RV with mildly reduced function,RVSP 29 mm Hg (systolic 144), mild TR. ECG obtained today shows normal sinus rhythm based on my reading. AI interpretation of the ECG shows low probability of reduced EF, HCM, , or A-fib. The patientis unable to achieve 4 METS but does seated exercises while watching Ag[employer] Ericka videos. No further cardiopulmonary testing indicated. Patient states she spent a long period of time in PACU after her discectomy due to pain. Would consider perioperative ketamine, postoperative hydromorphone DIRECTOR OF ACQUISITIONS, and possible postoperative pain consult if indicated. 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 Allergies were reviewed. NPO times were discussed and patient was given informational handout. Medications were reviewed and patient was instructed to hold her glipizide and metformin on the day of surgery, as well as continue holding Xarelto. Patient stopped taking herbal supplements on 12/16. # Airway Prior 2A view with DL in 2011, however would recommend glidescope intubation due to limited neck mobility. 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 Prior massive PE causing cardiac arrest in 2008 after L TKA. Vascular medicine determined last dose of rivaroxaban should be /, however patient forgot to take yesterday so her last dose was 10/. 5000 units heparin should be started the day of surgery, then transition to Lovenox if not able to restart rivaroxaban. # Nodule Thyroid Stable thyroid nodules found on ultrasound from 02/2019. Consider repeating surveillance ultrasound in February. # Obstructive Sleep Apnea Adult Managed with home CPAP. Patient instructed to bring her machine to surgery. # Restless Leg Syndrome Takes pramipexole. # Smoking Tobacco Use Personal History 15 pack year history, quit in . Patient medically optimized for planned procedure: Yes Surgery Specific Risk Classification: Elevated Risk Caprini Total Score: 9 The patient is at the highest risk for postoperative DVT or PE. Mechanical AND chemoprophylaxis are recommended at the time of procedure and during postoperative hospitalization, as well as chemoprophylaxis at the time of hospital discharge, unless there are contraindications or risk of bleeding outweighs benefits of chemoprophylaxis. Further Recommendations: None Ernesto Hart MD PGY4, Pager #[phone] documented in this encounter Plan of Treatment Not on filedocumented as of this encounter Procedures Procedure Name Priority Date/Time Associated Diagnosis Comme nts ECG Routine 12/21/2021 11:21 AM Pain Low Back Results for this CDT Unspecified procedure are in Diabetes Mellitus Type the r esults 2 With Diabetic section. 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 Replacement Status Post Bila teral Nodule Thyroid Preoperative Exam documented in this encounter Results ECG 12 Lead (12/21/2021 11:21 AM CDT) P athologist Signature Ventricular Rate 72 BPM MUSE ECG/Min TN Interval 180 ms MUSE QRSD Interval 100 ms MUSE QT Interval 382 ms MUSE QTC Interval 418 ms MUSE P [place] 1 degrees MUSE R [place] -16 degrees MUSE T Wave [place] 26 degrees MUSE Specimen Anatomical Collection Method [...] Code Phon e Number MUSE MUSE NA documented in this encounter Visit Diagnoses Diagnosis Preoperative Exam - Primary Pain Low Back Unspecified Diabetes Mellitus Type 2 With Diabetic N europathy (HCC) Myelopathy Cervical (HCC) Pain Neuropathic Hypertension Essential Primary Constipation Spondylosis Lumbar Without Myelopathy Tendonitis Achilles Right Restless Leg Syndrome Anticoagulant Therapy Embolus Pulmonary Personal History Diabetes Mellitus Type 2 (HCC) Depression Major Recurrent Partial Remis penelope (HCC) Arthroplasty Total Knee Replacement Stat us Post Bilateral Nodule Thyroid Body Mass Index 40.0 To 44.9 Adult (HCC) Obstructive Sleep Apnea Adult Smoking Tobacco Use Personal History documented in this encounter Additional Health Concerns Assessment Noted Time PHQ-9 Depression Total Score: 5 04/29/2016 10:10 AM CS T documented as of this encounter
--- OUTSIDE RECORDS SUMMARY | 2022-01-12 12:33 | XMS_ITS | Encounter Summary ---
:1955 Author Organization [facility] Address [address] [place] [address] Care Team Providers Name Role Phone Unavailable Primary Care Provider Unavailable Reason for Referral MRI/CAT/PET Scan (Routine) - Closed Specialty Diagnoses / Procedures Referred By Contact Refer red To Contact Radiology Diagnoses Stenosis Spinal Cervical Buster Herrera M.D. [facility] Procedures CT Cervical Spine without IV Contrast [address] [place] [phone] Referral ID Status Reason Start Date Expiration Date Visits Requ ested Visits Authorized [id number] Closed 11/14/2021 11/14/2022 1 1 Reason for Visit MRI/CAT/PET Scan (Routine) - Closed Specialty Diagnoses / Procedures Referred By Contact Refer red To Contact Radiology Diagnoses Stenosis Spinal Cervical Buster Herrera M.D. [facility] Procedures CT Cervical Spine without IV Contrast [address] [place], [place] [phone] Referral ID Status Reason Start Date Expiration Date Visits Requ ested Visits Authorized [id number] Closed 11/14/2021 11/14/2022 1 1 Encounter Details Date Type Department Care Team Description 12/18/2021 Hospital Encounter Department of Jesús Herrera Spinal Radiology, Davey Holder [facility], in [address] [place], [place] 200 [facility] [address] [place], [place] [phone] (Work) [phone] Social History Tobacco Use Types Packs/Day Years [...] or relatives? How often do you attend adventism or Never 2021 cheondoism services? Do you belong to any clubs or Yes 12/12/2021 organizations such as adventism groups, unions, fraternal or athletic groups, or [...] place to sleep or slept in a correction (including now)? Education Answer Date Recorded What is the highest level of school Master's degree (e.g., M A, MS, 07/15/2020 you have completed or the highest Tiara, MEd, SCHOOL BUS OPERATOR, ODILIA) degree you have received? Sex Assigned [...] 365 test 0 12/28/2021 strips blood-glucose meter [facility] Test as directed 1 each 0 12/28 [...] Procedure Name Priority Date/Time Associated Comments Diagnosis CT CERVICAL SPINE RAD - Routine 12/18/2021 1:02 Stenosis Spinal Res ults for this WITHOUT IV (most inpatients PM CDT Cervical procedure a re in CONTRAST and all the results outpatients) section. documented in this encounter Results CT Cervical Spine without IV Contrast (12/18/2021 [...] thyroid ultrasound is recommended if clinically appropriate. Buster BRAGA CT PROCEDURES documented in this encounter Visit Diagnoses Diagnosis Stenosis Spinal Cervical documented in this encounter Additional Health Concerns Assessment Noted Time PHQ-9 Depression Total Score: 5 04/29/2016 10:10 AM CS T documented as of this encounter
--- OUTSIDE RECORDS SUMMARY | 2022-01-12 12:33 | XMS_ITS | Encounter Summary ---
:1955 Author Organization [facility] Address [address] [place] [address] Care Team Providers Name Role Phone Unavailable Primary Care Provider Unavailable Reason for Visit Outpatient (Routine) - Closed Specialty Diagnoses / Procedures Referred By Contact Refer red To Contact Vascular Medicine Diagnoses [facility] [address] [place] [address] Referral ID Status Reason Start Date Expiration Date Visits Requ ested Visits Authorized [id number] Closed 11/14/2021 11/14/2022 1 1 Encounter Details Date Type Department Care Team Description 12/18/2021 Comprehensive Visit Department of Ann-Marie Muller Embolus Pulmonary Personal History (Primary Dx); Vascular Medicine R, P.A.-C. Anticoagulant Therapy; in [place] [address] [address] [facility] Preoperative Exam [place], [place] [address] [facility] [address] [place], [place] [phone] (Work) [phone] Social History Tobacco Use Types Packs/Day Years [...] or relatives? How often do you attend pentecostalism or Never 2021 congregation services? Do you belong to any clubs or Yes 12/12/2021 organizations such as pentecostalism groups, unions, fraternal or athletic groups, or [...] place to sleep or slept in a penitentiary (including now)? Education Answer Date Recorded What is the highest level of school Master's degree (e.g., M A, MS, 07/15/2020 you have completed or the highest Tiara, MEd, COMPUTER AIDED DRAFTER, ODILIA) degree you have received? Sex Assigned at Date Recorded Female 07/21/2017 2:58 PM CDT documented as of this encounter Last Filed Vital Signs Vital Sign Reading Time Taken Comments Blood Pressure 129/81 12/18/2021 2:50 PM CDT Pulse 72 12/18/2021 2:50 PM CDT Temperature - - Respiratory Rate - - Oxygen Saturation - - Inhaled Oxygen Concentration - - Weight - - Height - - Body Mass Index - - documented in this encounter Consult Notes Ann-Marie Muller P.A.-C. - 12/18/2021 2:45 PM CDT REFERRAL SOURCE Buster Herrera M.D. [address] [place] [phone] SUBJECTIVE CHIEF COMPLAINT / REASON FOR VISIT Periprocedural anticoagulant recommendations HISTORY OF PRESENT ILLNESS Ms. Adames is a very pleasant 66 y.o. female that I am seeing today for periprocedural anticoagulant recommendations. 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 Records are not available. She states that she was feeling weak and very fatigued, and her daughter made her go to the hospital. She was told that it was juaquin that she came in or she may not have survived. She was started on rivaroxaban appropriately, and after she had been treated for minimum of 6 months, the dose was reduced to 10 mg daily. She has been on that ever since. She has not had any bleeding and states she is tolerating the rivaroxaban very well. She had a previous blood clot after undergoing left TKA in 2008. She was still in the hospital and ambulating around the hospital room when she suddenly passed out and went into cardiopulmonary arrest.She was told after she was resuscitated that she had multiple blood clots within the heart. She was also told she had blood clots in her legs probably prior to surgery, but she was uncertain of this. She was seen in thrombophilia by me on December 09, 2011 for bridging recommendations while on warfarin. Please see that note for full details. I am not certain when the warfarin was discontinued, but she was not on anticoagulation when the new blood clots happened 1-2 years ago. She has returned to [facility] with complaints of neck pain and low back pain that have progressively worsened over time. She has been seen in the spine clinic as well as by Orthopedic surgery in October and November of this year. She is now scheduled to undergo surgery on December 24, 2021 for posterior cervical laminoplasty C3-7. She needs to stop rivaroxaban prior to the surgery. Labs drawn today show WBC 11.6, hemoglobin 14.8, platelet 340, INR 1.1, and creatinine 0.70. She hashemoglobin A1c 9.0. She has pain rated 4 in her neck. She has a wheeled walker and a wheelchair outside the room. The following portions of the patient's history were reviewed and updated as appropriate: allergies,current medications, family history, medical history, social history, surgical history, psychiatric history, substance abuse history, problem list, labs, diagnostics tests. I reviewed the pertinent clinical notes in the electronic health record. REVIEW OF SYSTEMS 14 systems reviewed. Pertinent positives and pertinent negatives are documented in the history of present illness. OBJECTIVE VITALS BP 129/81 (BP Location: Right arm, Patient Position: Sitting) Pulse 72 BP right arm seated 120/79,pulse 71. PHYSICAL EXAMINATION There is no height or weight on file to calculate BMI. General: Patient is a 66 y.o. female, neatly dressed, seated and in no acute distress. She has a wheeled walker in front of her. Head: Atraumatic and normocephalic. Eyes: Sclera non-icteric with no injection and no drainage seen. ENT: Mucosa not observed due to face mask. Neck: She is wearing a soft cervical collar. Neck not examined. Skin: Warm and dry with good turgor. No ecchymosis or rashes seen on visible skin. Extremities: 2+ edema noted bilaterally. Gait: She was able to stand with the aid of leaning on the walker and no other assistance, and transferred to a wheelchair right beside the bench. Mental: Alert and oriented with normal affect. DIAGNOSTIC REVIEW All labs and diagnostic studies were reviewed. ASSESSMENT / PLAN #1 Embolus Pulmonary Personal History #2 Anticoagulant Therapy #3 Preoperative Exam Mrs. Adames has come to [facility] with complaints of back and neck pain. She will be undergoing a posterior cervical laminoplasty C3-7 on December 24, 2021. She is on rivaroxaban 10 mg daily as she has had unprovoked DVT and pulmonary embolism in the last 1-2 years. She had a prior massive PE that caused cardiopulmonary arrest in 2008 while she was still in the hospital after left total knee arthroplasty. She will need careful anticoagulation after surgery. She has already been told that her last dose of rivaroxaban will be taken on December 20. This was documented in the nurse communication from the surgical team. I reinforce this and gave her chart showing that her last dose of rivaroxaban will be December 20, and she will then hold it December 21, , , and then go to surgery on December 24 as scheduled. After surgery she will be high risk for DVT and pulmonary embolism. I recommend mechanical DVT prophylaxis with sequential compression devices whenever she is in bed or sitting in a chair, working on calf muscle pump function exercises, and good hydration. If possible, early and frequent ambulation should be encouraged. When considered safe from a surgical standpoint, she needs to be restarted on pharmaceutical anticoagulation. This could be with 5000 units of unfractionated heparin injected subQ t.i.d. beginning the day after surgery, if permitted by the surgeon, and continued for 1-2 days. When considered safe, this can be transitioned to 40 mg of Lovenox injected subcu daily. She can then restart rivaroxaban 10 mg daily beginning 3-4 days after surgery or whenever the surgeon feels appropriate. If they do not want to start rivaroxaban that soon, then I recommend that she receive 40 mg of enoxaparin subQ daily until she is ready to restart rivaroxaban. She can self inject outside the hospital if she is given instruction on the method of injection. All questions were answered to the best of my ability. It was a pleasure seeing her today. Total time spent with patient including greater than 50% of time spent in counseling and education. Twenty minutes. Nataliya Muller P.A.-C. documented in this encounter Plan of Treatment Not on filedocumented as of this encounter Visit Diagnoses Diagnosis Embolus Pulmonary Personal History - [facility] Anticoagulant Therapy Preoperative Exam documented in this encounter Additional Health Concerns Assessment Noted Time PHQ-9 Depression Total Score: 5 04/29/2016 10:10 AM CS T documented as of this encounter
--- OUTSIDE RECORDS SUMMARY | 2022-01-12 12:33 | XMS_ITS | Encounter Summary ---
:1955 Author Organization [facility] Address [address] [place] [address] Care Team Providers Name Role Phone Unavailable Primary Care Provider Unavailable Reason for Referral MRI/CAT/PET Scan (Routine) - Authorized Specialty Diagnoses / Procedures Referred By Contact Refer red To Contact Radiology Diagnoses Pain Cervical Arthrodesis Status Buster Herrera M.D. [facility] Procedures CT Cervical Spine without IV Contrast [address] [place], [place] [phone] Referral ID Status Reason Start Date Expiration Date Visits V isits Requested Authorized [id number] Authorized 12/26/2021 12/26/2022 1 1 Outpatient (Routine) - Authorized Specialty Diagnoses / Procedures Referred By Contact Refer red To Contact Diagnoses Pain Cervical Buster Herrera M.D. [facility] Procedures DX Cervical Spine 4-5 Views [address] [place] [address] Referral ID Status Reason Start Date Expiration Date Visits V isits Requested Authorized [id number] Authorized 12/26/2021 12/26/2022 1 1 Outpatient (Routine) - Authorized Specialty Diagnoses / Procedures Referred By Contact Refer red To Contact Orthopedic Surgery Diagnoses Pain Cervical Buster Herrera [place] M.D. [address] [place] [address] Referral ID Status Reason Start Date Expiration Date Visits V isits Requested Authorized [id number] Authorized 12/26/2021 12/25/2024 1 1 Outpatient (Routine) - Authorized Specialty Diagnoses / Procedures Referred By Contact Refer red To Contact Diagnoses Pain Cervical Buster Herrera M.D. [facility] Procedures DX Cervical Spine 4-5 Views [address] [place] [phone] Referral ID Status Reason Start Date Expiration Date Visits V isits Requested Authorized [id number] Authorized 12/26/2021 12/26/2022 1 1 Outpatient (Routine) - Authorized Specialty Diagnoses / Procedures Referred By Contact Refer red To Contact Orthopedic Surgery Diagnoses Pain Cervical Buster Herrera [place] M.D[facility] [address] [place] [address] Referral ID Status Reason Start Date Expiration Date Visits V isits Requested Authorized [id number] Authorized 12/26/2021 12/25/2024 1 1 Outpatient (Routine) - Authorized Specialty Diagnoses / Procedures Referred By Contact Refer red To Contact Diagnoses Pain Buster Dai M.D. [facility] Procedures DX Cervical Spine 4-5 Views [address] [place] [address] Referral ID Status Reason Start Date Expiration Date Visits V isits Requested Authorized [id number] Authorized 12/26/2021 12/26/2022 1 1 Outpatient (Routine) - Authorized Specialty Diagnoses / Procedures Referred By Contact Refer red To Contact Orthopedic Surgery Diagnoses Pain Cervical Buster Herrera [place] [address] [place] [address] Referral ID Status Reason Start Date Expiration Date Visits V isits Requested Authorized [id number] Authorized 12/26/2021 12/25/2024 1 1 Outpatient (Routine) - Authorized Specialty Diagnoses / Procedures Referred By Contact Refer red To Contact Diagnoses Pain Cervical Buster Herrera M.D. [facility] Procedures DX Cervical Spine 2-[address] Views [address] [place] [phone] Referral ID Status Reason Start Date Expiration Date Visits V isits Requested Authorized [id number] Authorized 12/26/2021 12/26/2022 1 1 Outpatient (Routine) - Authorized Specialty Diagnoses / Procedures Referred By Contact Refer red To Contact Orthopedic Surgery Diagnoses Pain Cervical Buster Herrera [place] M.D. 200 [place] [address] Referral ID Status Reason Start Date Expiration Date Visits V isits Requested Authorized [id number] Authorized 12/26/2021 12/25/2024 1 1 Outpatient (Routine) - Authorized Specialty Diagnoses / Procedures Referred By Contact Refer red To Contact Orthopedic Surgery Diagnoses Pain Cervical Buster Herrera [place] [place] [address] [place] [address] Referral ID Status Reason Start Date Expiration Date Visits V isits Requested Authorized [id number] Authorized 12/26/2021 12/25/2024 1 1 Reason for Visit Reason Comments Post-op Patient had surgery on Niels oplasty Posterior Cervical C3-7 Encounter Details Date Type Department Care Team Description 12/26/2021 Clinical Communication Department of Javier Post -op (Patient had Orthopedic Surgery Buster Lang M.D. surgery on in [place] [address] [address] [facility] Laminoplasty [place], [place] Posterior Cervical [address] [facility] [address] C3-7) [place], [place] [phone] [address] (Work) [phone] Social History Tobacco Use Types Packs/Day Years [...] or relatives? How often do you attend christianity or Never 2021 sabianist services? Do you belong to any clubs or Yes 12/12/2021 organizations such as christianity groups, unions, fraternal or athletic groups, or [...] minutes do you engage in exercise at is 0 min 07/15/2020 level? Stress Answer [...] place to sleep or slept in a long-term (including now)? Education Answer Date Recorded What is the highest level of school Master's degree (e.g., Jose Roberto Loza MS, 07/15/2020 you have completed or the highest Tiara, MEd, OIL AND GAS LEASE PUMPER, ODILIA) degree you have received? Sex Assigned at Date Recorded Female 07/21/2017 2:58 PM CDT documented as of this encounter Miscellaneous Notes Telephone Encounter - Pedro Santiago - 12/26/2021 9:22 AM CDT Patient orders are pended and waiting to be signed. Thank You documented in this encounter Plan of Treatment Scheduled Orders Name Type Priority Associated Diagnoses Order S chedule DX Cervical Spine Imaging RAD - Routine (most Pain Cervical Ex pected: 2-3 Views inpatients and all 2, outpatients) Expires: 03/28/2023 DX Cervical Spine Imaging RAD - Routine (most Pain Cervical Ex pected: 4-5 Views inpatients and all 3 outpatients) (Approximate), Expires: 03/28/2023 DX Cervical Spine Imaging RAD - Routine (most Pain Cervical Ex pected: 4-5 Views inpatients and all 3 outpatients) (Approximate), Expires: 03/28/2023 DX Cervical Spine Imaging RAD - Routine (most Pain Cervical Ex pected: 4-5 Views inpatients and all 3 outpatients) (Approximate), Expires: 03/28/2023 CT Cervical Spine Imaging RAD - Routine (most Pain Cervi caprice Expected: without IV Contrast inpatients and all Arthrodesis Sta tus 12/26/2022 outpatients) (Approximate), Expires: 03/28/2023 Scheduled Referrals Name Type Priority Associated Order Schedule Diagnoses Orthopedic Surgery Outpatient Referral Routine Pain Cervical E xpected: Post Op (clinic) 01/07/2022, Expires: 03/28/2023 Orthopedic Surgery Outpatient Referral Routine Pain Cervical E xpected: office visit 02/04/2022, (clinic) Expires: 03/28/2023 Orthopedic Surgery Outpatient Referral Routine Pain Cervical E xpected: office visit 03/28/2022 (clinic) (Approximate), Expires: 03/28/2023 Orthopedic Surgery Outpatient Referral Routine Pain Cervical E xpected: office visit 06/26/2022 (clinic) (Approximate), Expires: 03/28/2023 Orthopedic Surgery Outpatient Referral Routine Pain Cervical E xpected: office visit 12/26/2022 (clinic) (Approximate), Expires: 03/28/2023 documented as of this encounter Visit Diagnoses Diagnosis Pain Cervical - Primary Arthrodesis Status documented in this encounter Additional Health Concerns Assessment Noted Time PHQ-9 Depression Total Score: 5 04/29/2016 10:10 AM CS T documented as of this encounter
--- OUTSIDE RECORDS SUMMARY | 2022-01-12 12:33 | XMS_ITS | Encounter Summary ---
:1955 Author [facility] Address [address] [place] [address] Care Team Providers Name Role Phone Unavailable Primary Care Provider Unavailable Reason for Referral Outpatient (Routine) - Closed Specialty Diagnoses / Procedures Referred By Contact Refer red To Contact Diagnoses Preoperative Exam Buster Herrera M.D. [facility] Procedures BMD Bone Density Spine Hips [address] [place] [phone] Referral ID Status Reason Start Date Expiration Date Visits Requ ested Visits Authorized [id number] Closed 11/14/2021 11/14/2022 1 1 Reason for Visit Outpatient (Routine) - Closed Specialty Diagnoses / Procedures Referred By Contact Refer red To Contact Diagnoses Preoperative Exam Buster Herrera M.D. [facility] Procedures BMD Bone Density Spine Hips [address] [place] [phone] Referral ID Status Reason Start Date Expiration Date Visits Requ ested Visits Authorized [id number] Closed 11/14/2021 11/14/2022 1 1 Encounter Details Date Type Department Care Team Description 12/18/2021 Hospital Encounter Department of Buster Herrera perative Exam Radiology, Manasa Lang M.D. [facility], in [address] [place], [place] [address] [facility] [address] [place], [place] [phone] (Work) [phone] Social History Tobacco Use Types Packs/Day Years [...] or relatives? How often do you attend episcopal or Never 2021 amish services? Do you belong to any clubs or Yes 12/12/2021 organizations such as episcopal groups, unions, fraternal or athletic groups, or [...] place to sleep or slept in a skilled nursing (including now)? Education Answer Date Recorded What is the highest level of school Master's degree (e.g., M A, MS, 07/15/2020 you have completed or the highest Tiara, MEd, CONTINUITY DIRECTOR, ODILIA) degree you have received? Sex Assigned [...] 365 test 0 12/28/2021 strips blood-glucose meter [facility] Test as directed 1 each [...] Procedure Name Priority Date/Time Associated Comments Diagnosis BMD BONE DENSITY RAD - Routine 12/18/2021 12:24 Preoperative Exam R esults for this SPINE HIPS (most inpatients PM CDT procedure a re in and all the results outpatients) section. documented in this encounter Results BMD Bone Density Spine Hips (12/18/2021 12:24 [...] Mineral Density (BMD) analysis perf ormed on [employer] with serial number [id number]. ? FINDINGS: Left Hip: Femur Neck: BMD [...] including images and graphs, is available in eCert. In the absence of other causes of [...] image stored in the BMD study in [employer]), the calculated ten year probability of f racture is: FRAX Risk Factors: None FRAX (10 yr probability) Major Osteoporotic Fracture: ??8.1 % Hip Fracture: ?0.9 % ? Today's spine scan is considered non-heide gnostic according to ISCD Guidelines. Procedure Note Jai Villagran M.B., B.Juana., B.A.O. - 12/18/2021 EXAM: BMD BONE DENSITY SPINE HIPS Bone Mineral Density (BMD) analysis perf ormed on [employer] with serial number [id number]. FINDINGS: Left Hip: Femur Neck: BMD = [...] including images and graphs, is available in [employer]Cert. In the absence of other causes of [...] image stored in the BMD study in [employer]), the calculated ten year probability of f racture is: FRAX Risk Factors: None FRAX (10 yr probability) Major Osteoporotic Fracture: 8.1 % Hip Fracture: 0.9 % Today's spine scan is considered non-heide gnostic according to ISCD Guidelines. IMPRESSION: Low bone density (Osteopenia) DualFemur (region: Neck Right) Buster BRAGA DXA PROCEDURES documented in this encounter Visit Diagnoses Diagnosis Preoperative Exam documented in this encounter Additional Health Concerns Assessment Noted Time PHQ-9 Depression Total Score: 5 04/29/2016 10:10 AM CS T documented as of this encounter
--- OUTSIDE RECORDS SUMMARY | 2022-01-12 12:33 | XMS_ITS | Encounter Summary ---
:1955 Author Organization [facility] Address [address] [place] [address] Care Team Providers Name Role Phone Unavailable Primary Care Provider Unavailable Encounter Details Date Type Department Care Team Description 12/24/2021 Anesthesia Event RST ROMB MAIN OR Milton Davis M.D. [address] [place] [address] [address] [facility] Svetlana Hastings D.O. [address] [place] [address] [place] [address] Anesthesia Record Procedure Summary Procedure Name Responsible Anesthesia Start Anesthesia Stop Anesthesiologist Time Time LAMINOPLASTY POSTERIOR Milton Davis M.D. 12/24/21 1241 1 1651 CERVICAL C3-7. (Spine Cervical) Events Date Time Event Comment 12/24/2021 1241 An Start Machine/Equipmen t Checked Infection Precautions Foll owed Procedure/Site Verified NPO Sta tus Verified Supine Standard ASA Mon itors Applied 1244 An Induction 1247 An Intubation 1300 Turnover to Proceduralist 1354 Proc Start 1445 Quick Note MAP goal >80 req uested by surgical team 1606 Proc Fin 1611 Turnover to ANE Staff 1640 Airway Removal Criteria Met 1640 Extubation/Airway Removed 1641 an stop data 1651 An End I completed my h andoff to the receiving staff during [facility] ch we 1. Identified the patient 2. Ident ified the responsible provider 3. Revi ewed the pertinent medical history 4. Discussed the surgical course 5. Review ed intra-op anesthesia management and i ssues during anesthesia 6. Set expectati ons for post-procedure period 7. Allowe d opportunity for questions and ac knowledgement of understanding. Name Total fentanyl injection 50 mcg/mL 100 mcg lidocaine 2% (mg) injection 100 mg propofol 10 mg/mL 200 mg propofol 10 mg/mL infusion 2,612.87 mg phenylephrine 100 mcg/mL injection 100 mcg ePHEDrine PF 5 mg/mL syringe injection 40 mg ondansetron 4 mg/2 mL injection 4 mg remifentaniL 20 mcg/mL in NaCl 0.9% 250 mL infusion (U LTIVA) 4.59 mg phenylephrine 20 mg/250 mL infusion 9.75 mg remifentanil 1 mg/mL injection 400 mcg tranexamic acid 2,550 mg in NaCl 0.9% IVPB 2,550 mg tranexamic acid 8 mg/mL in NaCl 0.9% 250 mL infusion ( CYKLOKAPRON) 914.4 mg ceFAZolin injection 3,000 mg (ANCEF) 3 g insulin regular 1 Unit/mL in NaCl 0.9% 100 mL infusion 17.03 Units ketamine 10 mg/mL injection 50 mg HYDROmorphone PF 2 mg/mL injection 0.6 mg Lactated Ringers Free Drip 700 mL lactated ringers free drip 500 mL Agents No agents on file. Blood No blood administrations on file. Lines, Drains, and Airways Type Details Placement Removal Wound 12/24/21; N; Incision; 12/24/21 0000 by Neck; Posterior; C3-7 Kalen Gregory, R.N. Laminoplasty Closed/Suction Drain 12/24/21; 1; Posterior; 12/24/21 0000 by 0947 by Back; Accordion; 10 Fr.; Jackie Guo Berndt, Reid, R.N. No longer in place R.N. Peripheral IV Placement Date: 12/24/211212 by 12/25/21206 b y 12/24/21; Placement Lius E Guillory P ellecchia Time: 1213; Catheter L, R.N. Size: 22 G; Orientation: Anterior, Left, Lower; Location: Forearm; Site Prep: Chlorhexidine (Preferred); Technique: Anatomical landmarks; Inserted by: [facility]; Insertion Attempts: 1; Removal Date: 12/25/21; Removal Time: 0207; Removal Reason: Infiltrated ETT Placement Date: 12/24/21 1247 by 12/25/21 1104 b y 12/24/21; Placement Milton Davis Peterson, Eve E, Time: 1247 (created via M.D. R.N. procedure documentation); Mask Ventilation: Easy mask; Type: Standard ETT; Single Lumen Tube Size: 7 mm; Cuffed: Yes; Location: Oral; Grade View: Grade 2A; Insertion Attempts: 1; Placement Verification: Bilateral breath sounds, Positive ETCO2, Symmetrical chest wall movement; Airway Comment: Removed after surgery; Removal Date: 12/25/21; Removal Time: 1104 Peripheral IV Placement Date: 12/24/21 1252 by 12/25/21 1536 b y 12/24/21; Placement Svetlana Hastings Throop, Bob bijo Time: 1252; Catheter D.O. Size: 18 G; Orientation: Right; Location: Hand; Removal Date: 12/25/21; Removal Time: 1536; Removal Reason: No longer in place Arterial Line Placement Date: 12/24/21 1259 by 12/24/21 1900 b y 12/24/21; Placemnt Time: Svetlana Hastings Flemin g, Pellecchia 1259 (created via D.O. L, R.N. procedure documentation); Size: 20 G; Orientation: Left; Location: Radial; Site Prep: Chlorhexidine (Preferred); Technique: Anatomical landmarks; Insertion Attempts: 1; Securement: Securement dressing, Securement device; Removal Date: 12/24/21; Removal Time: 1900; Removal Reason: Other (Comment) (Removed by a previous nurse) Indwelling Urinary Placement Date: 12/24/21 1305 by 12/24/21 160 0 by Catheter 12/24/21; Placement Kalen Gregory R.N. Powell, Brittany M, Time: 1305; Inserted by: Doreen Gregory RN; Type: Non-latex; Size: 16 Fr.; Balloon Size: 5 mL (filled with 10cc of sterile water); Urine Returned: Yes; Removal Date: 12/24/21; Removal Time: 1600; Removal Reason: Drain/catheter damaged (Leaking from the tubing) documented in this encounter Social History Tobacco Use Types Packs/Day Years [...] or relatives? How often do you attend religion or Never 2021 zoroastrianism services? Do you belong to any clubs or Yes 12/12/2021 organizations such as religion groups, unions, fraternal or athletic groups, or [...] place to sleep or slept in a long term (including now)? Education Answer Date Recorded What is the highest level of school Master's degree (e.g., M [employer], MS, 07/15/2020 you have completed or the highest [employer], MEd, [employer], [employer]) degree you have received? Sex Assigned at Date Recorded Female 07/21/2017 2:58 PM CDT documented as of this encounter OR Notes Anesthesia Postprocedure Evaluation - Milton Davis M.D. - 12/24/2021 4:57 PM CDT Patient: Yaz Adames Procedure Summary Date: 12/24/21 Room / Location: [place] [address] / [facility] in [place], [place] Anesthesia Start: 1241 Anesthesia Stop: 165 Procedure: LAMINOPLASTY POSTERIOR CERVICAL C3-7. (Spine Cervical) Diagnosis: Myelopathy Cervical (HCC) (Myelopathy Cervical (HCC) [G95.9].) Providers: Buster Herrera M.D. Responsible Provider: Milton Davis M.D. Anesthesia Type: general ASA Status: 3 Anesthesia Type: general Last vitals Vitals Value Taken Time BP 138/63 12/24/21 1647 Temp Pulse 74 12/24/21 1657 Resp 15 12/24/21 1657 SpO2 96 % 12/24/21 165 Vitals shown include unvalidated device data. Please reference Vitals flowsheet for most recent vital signs. Anesthesia Post Evaluation Patient Disposition: general care unit Cardiovascular status: hemodynamics (HR & BP) acceptable Respiratory status: patent airway with spontaneous effort Temperature: normothermic Oxygen requirements: nasal cannula Level of consciousness: awake Pain score: pain adequately controlled and/or at baseline Post Op nausea/vomiting: none Hydration status: euvolemic Anesthesia Procedure Notes - Milton Davis M.D. - 12/24/2021 4:56 PM CDT Associated Order(s): Airway Airway Date/Time: 12/24/2021 12:47 PM Performed by: Milton Davis M.D. Authorized by: Milton Davis M.D. Patient location during procedure: OR / Procedure Area PROCEDURE DETAILS: Mask difficulty assessment: easy mask Final airway type: video laryngoscope Laryngeal Manipulation: no Final best view of glottic structures - Cormack/Lehane Score: grade 2A ETT location: oral VL device: glide scope [place] scope blade size: 3 Adult tube size: 7 Adult ETT distance at teeth/gum: 22 Oral tube type: standard ETT Cuffed: yes Number of attempt to successful placement: 1 Airway confirmation: bilateral breath sounds, positive ETCO2 and bilateral chest rise Other previous techniques attempted: none PRE PROCEDURE DETAILS: Pre evaluation for airway management: procedure Urgency: elective Preoxygenation: bag valve mask SEDATION / ANESTHESIA Anesthesia method: anesthesia POST PROCEDURE DETAILS: Procedure outcome: successful Airway event: no complications Anesthesia Procedure Notes - Svetlana Hastings D.O. - 12/24/2021 1:06 PM CDT Associated Order(s): Invasive Catheter Invasive Catheter Date/Time: 12/24/2021 12:59 PM Performed by: Svetlana Hastings D.O. Authorized by: Milton Davis M.D. Location: OR PROCEDURE DETAILS: Line type: arterial Laterality: left Location: radial Location details: new site Age group: adult Catheter diameter: 20 Ga Technique: palpation Monitored: yes Number of attempts: 1 UNIVERSAL PROTOCOL All relevant documentation and testing were reviewed and available. All required blood products, implants, devices and or special equipment were made available as applicable. Pre-procedure verificationwas conducted and the correct site was marked if required. A fire risk assessment was done as applicable. The procedural time-out to verify correct patient, correct side/site, and procedure was conducted prior to performing the procedure and confirmed in a procedural pause. PRE-PROCEDURE DETAILS: Appropriate hand hygiene, gown, cap, mask, protective eyewear, sterile gloves, skin preparation, sterile drape, and strict aseptic technique were utilized as applicable for the procedure.: yes Skin preparation: chlorhexidine SEDATION / ANESTHESIA Anesthesia method: anesthesia POST-PROCEDURE DETAILS: Procedure completed successfully: yes Line secured: secured with sutureless device Chlorhexidine disc around insertion site and under catheter with slight turn: yes Complications - arterial: none ATTESTATION STATEMENT A resident or fellow participated in the procedure, and the political consultant was present for the entire procedure. Anesthesia Preprocedure Evaluation - Milton Davis M.D. - 12/24/2021 12:06 PM CDT Preprocedure Anesthesia & H&P Assessment Procedure Summary Date/Time: 12/24/21 6169 Procedure: LAMINOPLASTY POSTERIOR CERVICAL C3-7. (Spine Cervical) Diagnosis: Myelopathy Cervical (HCC) [G95.9] Pre-op diagnosis: Myelopathy Cervical (HCC) [G95.9]. Location: [address] / [facility] in [place], [place] Providers: Buster Herrera M.D. Pertinent components of the patient's history including current problem list, medical history, surgical history, family history, social history, medications and allergies were reviewed. Present illnessand pre-op diagnosis were confirmed. The planned surgery / procedure was verified with the patient /legal guardian. 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) GENETICS (+) Diabetes Mellitus Type 2 (HCC) MSK/RHEUM (+) Fasciitis Plantar (+) Tendonitis Achilles Right HEME (+) Anticoagulant Therapy Nervous (+) Pain Neuropathic Musculoskeletal (+) Scoliosis (+) Spondylosis Lumbar Without Myelopathy Other (+) Arthroplasty Total Knee Replacement Status Post Bilateral (+) Body Mass Index 40.0 To 44.9 Adult (HCC) (+) Fasciitis Plantar (+) Restless Leg Syndrome (+) Tendonitis Achilles Right OBJECTIVE PHYSICAL EXAMINATION Airway (HEENT) Mallampati: III TM Distance: >3 FB Neck ROM: Limited Mouth Opening: <3 cm Cardiovascular Rhythm: Regular Cardiovascular Assessment: cardiovascular normal Functional Capacity: <4 METS Pulmonary Pulmonary Assessment: Clear General / Constitutional Constitutional Assessment: Overweight Neurological Neurologic Assessment:??alert and alert and oriented x 3 Dental Dental Assessment: dentition intact ASSESSMENT / PLAN ANESTHESIA PLAN ASA: 3 Anesthesia Plan: general Patient relayed having significant peripheral neuropathy in legs bilaterally. She also notes pain inthe R shoulder and arm. Patient seen and allergies reviewed, anesthesia plan and risks discussed directly with patient /legal guardian or through an deaf interpreter. Risks/Benefits/Alternatives of Blood transfusion discussed with patient / legal guardian, including an opportunity to ask questions and/or decline some or all transfusion therapies. The patient / legalguardian consented to the use of all blood products, as deemed medically necessary Approval to Proceed: approved for anesthesia documented in this encounter Plan of Treatment Not on filedocumented as of this encounter Procedures Procedure Name Priority Date/Time Associated Comments Diagnosis LDA ANE ARTERIAL LINE Routine 12/24/2021 12:59 Re sults for this INSERTION PM CDT procedure are i n the results section. CA ARTL CATH/CNULA Routine 12/24/2021 12:59 Resul ts for this MONITOR PERC PM CDT procedure are i n the results section. LDA ANE ENDOTRACHEAL Routine 12/24/2021 12:47 Res ults for this AIRWAY PM CDT procedure are i n the results section. documented in this encounter Results CA ARTL CATH/CNULA MONITOR PERC, LDA ANE ARTERIAL [...] fellow participated in the procedure, and the political consultant was present for the entire procedure. [...] ETT location: oral VL device: glide scope [place] scope blade size: 3 Adult tube size: [...] no complications Milton Davis M.D. ANESTHESIA ORDERABLES documented in this encounter Visit Diagnoses Not on filedocumented in this encounter Administered Medications Inactive Administered Medications - up to 3 most recent administrations Medication Order MAR Action Action Date Dose Rate Site ceFAZolin injection 3,000 mg (ANCEF) Given 12/24/2021 1:44 PM CDT 3 g 3,000 mg (rounded from 3,175 mg = 25 mg/kg ? 127 kg), intravenous, Once, On Fri12/24/21 at 1015, For 1 dose, Intra-Op, Preoperatively within 1 hour prior to surgical incision If needed, reconstitute vial per package insert instructions. See IVAG for administration guidelines. , Drug Monitoring Program: Pharmacist to adjust medication dosing based on indication and drug clearance factors., Indications: Prophylaxis, surgical ePHEDrine (PF) injection Given 12/24/2021 4:04 PM CDT 10 mg intravenous, As needed, Starting on Fri12/24/21 at 1244, Anesthesia Intra-op Given 12/24/2021 3:43 PM CDT 5 mg Given 12/24/2021 1:45 PM CDT 10 mg fentaNYL injection (SUBLIMAZE) Given 12/24/2021 12:42 PM CDT 100 mcg intravenous, As needed, Starting on Fri12/24/21 at 1242, Anesthesia Intra-op HYDROmorphone (PF) injection (DILAUDID) Given 12/24/2021 3:27 PM CDT 0.2 mg intravenous, As needed, Starting on Fri12/24/21 at 1459, Anesthesia Intra-op Given 12/24/2021 2:59 PM CDT 0.4 mg insulin regular 1 Unit/mL Rate/Dose Change 12/25/2021 6:56 AM 0 Uni ts/hr 0 mL/hr in NaCl 0.9% 100 mL CDT infusion 0-25 Units/hr (0-25 mL/hr), intravenous, Continuous Infusion: Per Instructions PRN, Initiate infusion for glucose greater than 180 mg/dL, Starting on Fri12/24/21 at 1223, NOTIFY PRESCRIBER IF: Glucose is [...] CDT 0 Units/hr 0 mL/hr ketamine injection (KETALAR) Given 12/24/2021 3:28 PM CDT 20 mg intravenous, As needed, Starting on Fri12/24/21 at 1438, Anesthesia Intra-op Given 12/24/2021 2:38 PM CDT 30 mg lactated ringers New Bag 12/24/2021 12:41 PM CDT intravenous, Continuous Infusion: Per Instructions PRN, Starting on Fri12/24/21 at 1241, Anesthesia Intra-op lactated ringers New Bag 12/24/2021 1:00 PM CDT intravenous, Continuous Infusion: Per Instructions PRN, Starting on Fri12/24/21 at 1300, Anesthesia Intra-op lidocaine (PF) (cardiac) injection Given 12/24/2021 12:44 PM CDT 100 mg intravenous, As needed, Starting on Fri12/24/21 at 1244, Anesthesia Intra-op ondansetron (PF) injection (ZOFRAN) Given 12/24/2021 3:32 PM CDT 4 mg intravenous, As needed, Starting on Fri12/24/21 at 1532, Anesthesia Intra-op phenylephrine 80 mcg/mL in Rate/Dose 12/24/2021 3:55 0.2 mcg/kg/min 19.035 NaCl 0.9% 250 mL infusion Change PM CDT mL/hr intravenous, Continuous Infusion: Per Instructions PRN, Starting on Fri12/24/21 at 1246, Anesthesia Intra-op Rate/Dose Change 12/24/2021 3:51 PM CDT 0.3 mcg/kg/min 28.553 mL/hr Rate/Dose Change 12/24/2021 3:16 PM CDT 0.4 mcg/kg/min 38.07 mL/hr phenylephrine injection Given 12/24/2021 12:46 PM CDT 100 mcg intravenous, As needed, Starting on Fri12/24/21 at 1246, Anesthesia Intra-op propofol 10 mg/mL infusion Rate/Dose 12/24/2021 3:05 100 mcg/kg/min 76.14 (DIPRIVAN) Change PM CDT mL/hr intravenous, Continuous Infusion: Per Instructions PRN, Starting on Fri12/24/21 at 1245, Anesthesia Intra-op Rate/Dose Change 12/24/2021 2:46 PM CDT 105 mcg/kg/min 79.947 mL/hr Rate/Dose Change 12/24/2021 2:28 PM CDT 115 mcg/kg/min 87.561 mL/hr propofoL injection (DIPRIVAN) Given 12/24/2021 12:44 PM CDT 200 mg intravenous, As needed, Starting on Fri12/24/21 at 1244, Anesthesia Intra-op remifentaniL 20 mcg/mL in Rate/Dose 12/24/2021 1:03 0.2 mcg/kg/min 7 6.14 NaCl 0.9% 250 mL infusion Change PM CDT mL/hr (ULTIVA) intravenous, Continuous Infusion: Per Instructions PRN, Starting on Fri12/24/21 at 1245, Anesthesia Intra-op New Bag 12/24/2021 12:45 PM CDT 0.3 mcg/kg/min 114.21 mL/hr remifentaniL injection (ULTIVA) Given 12/24/2021 12:44 PM CDT 400 mcg intravenous, As needed, Starting on Fri12/24/21 at 1244, Anesthesia Intra-op tranexamic acid 2,550 mg in NaCl 0.9% New Bag 12/24/2021 1:38 PM C DT 2,550 mg IVPB 2,550 mg (rounded from 2,540 mg = 20 mg/kg ? 127 kg), intravenous, at 227 mL/hr, Administer over 20 Minutes, Once in surgery, OR use only, Starting on Fri12/24/21 at 1014, For 1 dose, Intra-Op tranexamic acid 8 mg/mL in New Bag 12/24/2021 1:53 PM CDT 4 mg/kg/ hr 63.5 mL/hr NaCl 0.9% 250 mL infusion (CYKLOKAPRON) 4 mg/kg/hr ? 127 kg (63.5 mL/hr), intravenous, Continuous, Starting on Fri12/24/21 at 1015, Intra-Op, In OR until skin closure. Pharmacy to adjust infusion dose for renal function. documented in this encounter Additional Health Concerns Assessment Noted Time PHQ-9 Depression Total Score: 5 04/29/2016 10:10 AM CS T documented as of this encounter
--- OUTSIDE RECORDS SUMMARY | 2022-01-12 12:34 | XMS_ITS | Encounter Summary ---
:1955 Author Organization [facility] Address [address] [place] [address] Care Team Providers Name Role Phone Unavailable Primary Care Provider Unavailable Reason for Referral MRI/CAT/PET Scan (Routine) - Closed Specialty Diagnoses / Procedures Referred By Contact Refer red To Contact Radiology Diagnoses Neuralgia Trigeminal Meghna Valdez M.D., [facility] [place] Region Procedures MR Face without and with IV Contrast MR Brain without IV Contrast UT MRI BRAIN WO CNTRST HC MRI BRAIN WO [facility] [address] [place] [phone] Referral ID Status Reason Start Date Expiration Date Visits Requ ested Visits Authorized [id number] Closed 06/13/2020 06/13/2021 1 1 Reason for Visit MRI/CAT/PET Scan (Routine) - Closed Specialty Diagnoses / Procedures Referred By Contact Refer red To Contact Radiology Diagnoses Neuralgia Trigeminal Meghna Valdez M.D., [facility] [place] Region Procedures MR Face without and with IV Contrast MR Brain without IV Contrast UT MRI BRAIN WO CNTRST HC MRI BRAIN WO CN[facility]ST [facility] [address] [place] [phone] Referral ID Status Reason Start Date Expiration Date Visits Requ ested Visits Authorized [id number] Closed 06/13/2020 06/13/2021 1 1 Encounter Details Date Type Department Care Team Description 06/21/2020 Hospital Encounter Department of Meghna Valdez Radiology in [place], [place], [place] M.P.[facility]. [address] [facility] [address] [place] [phone] Social History Tobacco Use Types Packs/Day Years [...] or relatives? How often do you attend caodaism or Never 2021 baptism services? Do you belong to any clubs or Yes 12/12/2021 organizations such as caodaism groups, unions, fraternal or athletic groups, or [...] place to sleep or slept in a [place] [facility] [place] (including now)? Sex Assigned at Date Recorded Female 07/21/2017 2:58 PM CDT documented as of this encounter Medications at Time of Discharge Medication Sig Dispensed Refills Start Date End Date co-enzyme Q-10 (CO Q-10) Take 1 capsule by 0 04/17 100 mg capsule mouth daily. cranberry 400 mg capsule Take 400 mg by 0 019 mouth daily. FSH/FLX/PRIM/CUR/BOR/OM3,6 Take 1 capsule by 0 ,9 5 (OMEGA 3-6-9 FATTY mouth daily. ACIDS ORAL) ginkgo biloba 40 mg tablet Take 120 mg by 0 mouth daily. hydroCHLOROthiazide Take 25 mg by 0 12/09/2016 (for_HYDRODIURIL) 25 mg mouth daily. tablet IRON,CARBONYL/ASCORBIC Take 1 tablet by 0 016 ACID (VITRON-C ORAL) mouth 2 (two) times a day. metFORMIN (for_GLUCOPHAGE) Take 1,000 mg by 0 10/2016 500 mg tablet mouth 2 (two) times a day with meals. multivitamin tablet Take 1 tablet by 0 04/25/2011 mouth daily. nystatin (for_MYCOSTATIN) Apply 1 0 10/30/2016 100,000 unit/gram cream application topically 2 (two) times a day as needed. pramipexole (MIRAPEX) Take 2-3 tablets 0 08/29/19 [...] 0 mg capsule daily. venlafaxine XR (EFFEXOR Take 1 capsule by [...] 4 (four) times a day as needed. acyclovir (for_ZOVIRAX) Take by mouth as 0 200812/24/2021 200 mg capsule needed. albuterol inhaler Inhale. 0 04/08/2019 022 alcaftadine 0.25 % drops INT 1 DROP IN OU D 0 01/201912/24/2021 amoxicillin (AMOXIL) 500 Take 2,000 mg by 0 12/27/2021 mg capsule mouth as directed. CALCIUM CARBONATE/VITAMIN Take 1 tablet by 0 05/201412/18/2021 D3 (CALCIUM WITH VITAMIN D mouth 3 (three) ORAL) times a day. carBAMazepine (CARBATROL) Take 1 capsule 180 capsule 3 05/1812/21/2021 200 mg 12 hr capsule (200 mg total) by mouth 2 (two) times a day. CONTOUR NEXT LEV 2 CONTROL U UTD 0 7 12/24/2021 JONNY solution CONTOUR NEXT STRIPS strips 2 (two) times a 3 11/201712/24/2021 day. for testing fluticasone propionate Administer into 0 03/02/20 19 11/12/2021 (FLONASE) 50 mcg/actuation nostril(s). nasal spray hydrocortisone (ANUSOL-HC) Insert 25 mg into 0 12/21/2021 25 mg suppository the rectum. ibuprofen (ADVIL,MOTRIN) Take 800 mg by 0 019 12/27/2021 800 mg tablet mouth every 6 (six) hours as needed. loratadine (for_CLARITIN) Take 1 tablet by 0 09/1512/27/2021 10 mg tablet mouth daily. mecobal-levomefolat Ca-B6 TAKE 1 TABLET BY 0 10/202012/24/2021 phos 3-35-2 mg tablet MOUTH TWICE DAILY meloxicam (MOBIC) 7.5 mg Take 1 tablet by 0 02/1812/18/2021 tablet mouth daily. MICROLET LANCET misc 2 (two) times a 3 04/04/2017 12/24/2021 day. for testing oxyCODONE-acetaminophen Take 1-2 tablets 0 202012/27/2021 (PERCOCET) 5-325 mg per by mouth 3 (three) tablet times a day as needed. prednisoLONE acetate (PRED SHAKE LQ AND INT 1 0 1 04/01/2019 06/23/2020 FORTE) 1 % ophthalmic GTT IN OS QID FOR suspension 7 DAYS THEN STOP pregabalin (LYRICA) 100 mg Take 100 mg by 0 02/1307/05/2020 capsule mouth daily. Taking in the afternoon pregabalin (LYRICA) 50 mg Take 1 capsule (50 90 capsule 3 06/23/2020 capsule mg total) by mouth daily. sennosides (SENOKOT) 8.6 Take 8.6 mg by 0 06/23/2020 mg tablet mouth daily. 3 tablets SENNOSIDES/DOCUSATE SODIUM Take 3 tablets by 0 06/23/2020 (SENNA WITH DOCUSATE mouth daily. SODIUM ORAL) traZODone (DESYREL) 50 mg Take 50 mg by 0 06/23/2020 tablet mouth at bedtime. 2 tablets triamcinolone 0 10/30/2016 06/23/2020 (for_KENALOG) 0.1 % cream UNABLE TO FIND lidocaine/ketamine 0 11/07/2016 /ketoprofen 2.48 g-5.525 g-5.525 g/114 g topical cream See Instructions, apply twice daily, 60 gm, 5 Refill(s) UNABLE TO FIND Lidoderm Compound 0 11/07/201611/2020 See Instructions, add 5% gabapentin to 30gm Lidoderm, 30 gm, 5 Refill(s) valACYclovir (VALTREX) Take 1 tablet by 0 010 06/23/2020 1000 mg tablet mouth as needed. documented as of this encounter Plan of Treatment Not on filedocumented as of this encounter Procedures Procedure Name Priority Date/Time Associated Comments Diagnosis MR FACE WITHOUT RAD - Routine 06/21/2020 4:09 Neuralgia Results for this AND WITH IV (most inpatients PM CDT Trigeminal procedure a re in CONTRAST and all the results outpatients) section. documented in this encounter Results MR Face without and with IV Contrast (06/21/2020 4:09 PM CDT) Anatomical Region Laterality Modality Head, Neuroradiology RST LOS, Neuroradiology ARZ LOS, N/A Magnetic Resonance Neuroradiology FLA LOS Specimen (Source) Anatomical Collection Method Collection Time Re ceived Time Location / / Volume Laterality 06/21/2020 4:13 PM CDT Impressions 06/21/2020 4:24 PM CDT 1. ??Nothing to account for trigeminal neuralgia. 2. ??Right TMJ degenerative joint diseas e. 3. ??Stable marked T2 hyperintensities i n the iwona. 4. ??Increased moderate chronic microang iopathy in the cerebral white matter. Narrative 06/21/2020 4:24 PM CDT EXAM: MR FACE WITHOUT AND WITH IV CONTRAST COMPARISON:Brain MRI 12/30/16 FINDINGS: Motion artifact distortion low ers sensitivity. This is a trigeminal neuralgia protocol MRI. There is nothing abnormal within the iwona adjacent to the root entry zone s of the trigeminal nerves bilaterally. There is nothing abnormal along the cave rnous segments and facial courses of the trigeminal nerves bilaterally. No vascul ar loop compressing trigeminal nerves bilaterally. 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 Stable marked T2 hyperintensities in the central iwona are probably from chronic microangiopathy, though can be from building repair maintenance supervisor amie central pontine myelolysis. Moderate chronic microangiopathy within cerebral white matter has mildly increased. Procedure Note Enrico Landis M.D. - 06/21/2020 EXAM: MR FACE WITHOUT AND WITH IV CONTRA ST COMPARISON:Brain MRI 12/30/16 FINDINGS: Motion artifact distortion low ers sensitivity. This is a trigeminal neuralgia protocol MRI. There is nothing abnormal within the iwona adjacent to the root entry zone s of the trigeminal nerves bilaterally. There is nothing abnormal along the cave rnous segments and facial courses of the trigeminal nerves bilaterally. No vascul ar loop compressing trigeminal nerves bilaterally. 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 Stable marked T2 hyperintensities in the central iwona are probably from chronic microangiopathy, though can be from building repair maintenance supervisor amie central pontine myelolysis. Moderate chronic microangiopathy within cerebral white matter has mildly increased. IMPRESSION: 1. Nothing to account for trigeminal vincent ralgia. 2. Right TMJ degenerative joint disease. 3. Stable marked T2 hyperintensities in the iwona. 4. Increased moderate chronic microangio jak in the cerebral white matter. Meghna Valdez M.D., M[facility]P.[facility]. IMG MRI PROCEDURES documented in this encounter Visit Diagnoses Diagnosis Neuralgia Trigeminal documented in this encounter Administered Medications Inactive Administered Medications - up to 3 most recent administrations Medication Order MAR Action Action Date Dose Rate Site gadobutrol injection 1-14 mL Given 06/21/2020 3:48 PM CDT 12 mL (GADAVIST) 1-14 mL, intravenous, Once in imaging, contrast, Starting on Fri06/21/20 at 1549, For 1 dose, Dose per Radiant Medication Guidelines sodium chloride 0.9 % injection 1-250 mL Given 06/21/2020 3:50 PM CDT 10 mL 1-250 mL, intravenous, Once in imaging, line care, Starting on Fri06/21/20 at 1549, For 1 dose documented in this encounter Additional Health Concerns Assessment Noted Time PHQ-9 Depression Total Score: 5 04/29/2016 10:10 AM CS T documented as of this encounter
--- OUTSIDE RECORDS SUMMARY | 2022-01-12 12:34 | XMS_ITS | Encounter Summary ---
:1955 Author Organization [facility] Address [address] [place] [address] Care Team Providers Name Role Phone Unavailable Primary Care Provider Unavailable Encounter Details Date Type Department Care Team Description 05/05/2019 [facility] Anoop Emery I tchy Eye (Primary Dx); AND CLINICS DFlynn Pain Eye Left [address] [facility] [address] [place] [address] [place], [place] [phone] Social History Tobacco Use Types Packs/Day Years [...] or relatives? How often do you attend jain or Never 2021 taoism services? Do you belong to any clubs or Yes 12/12/2021 organizations such as jain groups, unions, fraternal or athletic groups, or [...] place to sleep or slept in a fdc (including now)? Sex Assigned at Date Recorded Female 07/21/2017 2:58 PM CDT documented as of this encounter Plan of Treatment Not on filedocumented as of this encounter Visit Diagnoses Diagnosis Itchy Eye - Primary Pain Eye Left documented in this encounter Additional Health Concerns Assessment Noted Time PHQ-9 Depression Total Score: 5 04/29/2016 10:10 AM CS T documented as of this encounter
--- OUTSIDE RECORDS SUMMARY | 2022-01-12 12:34 | XMS_ITS | Encounter Summary ---
:1955 Author Organization [facility] Address [address] [place] [address] Care Team Providers Name Role Phone Unavailable Primary Care Provider Unavailable Encounter Details Date Type Department Care Team Description 06/08/2020 Clinical Communication Department of Sleep Meghna Valdez, Medicine in [place], M.P .H. [place] [address] [place] [phone] Social History Tobacco Use Types Packs/Day Years [...] or relatives? How often do you attend catholic or Never 2021 gnosticist services? Do you belong to any clubs or Yes 12/12/2021 organizations such as catholic groups, unions, fraternal or athletic groups, or [...] place to sleep or slept in a alf (including now)? Sex Assigned at Date Recorded Female 07/21/2017 2:58 PM CDT documented as of this encounter Plan of Treatment Not on filedocumented as of this encounter Visit Diagnoses Not on filedocumented in this encounter Additional Health Concerns Assessment Noted Time PHQ-9 Depression Total Score: 5 04/29/2016 10:10 AM CS T documented as of this encounter
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
--- OUTSIDE RECORDS SUMMARY | 2022-01-12 12:34 | XMS_ITS | Encounter Summary ---
:1955 Author Organization [facility] Address [address] [place] [address] Care Team Providers Name Role Phone Unavailable Primary Care Provider Unavailable Reason for Visit Reason Comments Trigeminal Neuralgia Encounter Details Date Type Department Care Team Description 06/03/2020 Nurse Triage Department of Internal Viola Ortez T rigeminal Neuralgia Medicine in [facility] [address] [facility] [address] [phone] Social History Tobacco Use Types Packs/Day Years [...] or relatives? How often do you attend islam or Never 2021 worship services? Do you belong to any clubs or Yes 12/12/2021 organizations such as islam groups, unions, fraternal or athletic groups, or [...] place to sleep or slept in a retirement (including now)? Sex Assigned at Date Recorded Female 07/21/2017 2:58 PM CDT documented as of this encounter Miscellaneous Notes Telephone Encounter - Viola Ortez R.N. - 06/03/2020 7:00 PM CDT Chief Complaint / Reason for Call Patient is a 65 y.o. female calling regarding Trigeminal Neuralgia. Assessment Concern: Yaz is calling with trigeminal neuralgia pain that started during the night, this morning she took 800 mg of ibuprofen, and another at 3 pm with no relief. Pain has been increasing over theday. She rates the pain 8/10. She states her right jaw is most painful. She had Left eye pain duringthe night but it is now just itching. She states she has mild swelling on the right side of her face. Home cares tried: Ibuprofen Calling to request: Advice The recommended disposition is See a health care provider within 4 hours. She will be calling a friend to drive her to the nearest ED. Reason for Disposition ??? [1] SEVERE pain (e.g., excruciating) AND [2] not improved after 2 hours of pain medicine Protocols used: FACE [id number] Care Advice Patient/Caregiver understands and will follow care advice?: Yes, able to teach back GO TO ED NOW: * You need to be seen in the Emergency Department. * Go to the ED at the nearest Hospital. * Leave now. Drive carefully. BRING MEDICINES: * Please bring a list of your current medicines when you go to the Emergency Department (ER). * It is also a good idea to bring the pill bottles too. This will help the doctor to make certain you are taking the right medicines and the right dose. DRIVING: Another adult should drive. documented in this encounter Plan of Treatment Not on filedocumented as of this encounter Visit Diagnoses Not on filedocumented in this encounter Additional Health Concerns Assessment Noted Time PHQ-9 Depression Total Score: 5 04/29/2016 10:10 AM CS T documented as of this encounter
--- OUTSIDE RECORDS SUMMARY | 2022-01-12 12:34 | XMS_ITS | Encounter Summary ---
:1955 Author Organization [facility] Address [address] [place] [address] Care Team Providers Name Role Phone Unavailable Primary Care Provider Unavailable Encounter Details Date Type Department Care Team Description 05/19/2020 Immunization Department of Family Medicine, [address] [address] [facility] [phone] Social History Tobacco Use Types Packs/Day Years [...] do you attend quaker or Never 2021 temple services? Do you belong to any clubs [...] or slept in a correction (including now)? Sex Assigned at Date Recorded Female 07/21/2017 2:58 PM CDT documented as of this encounter Plan of Treatment Not on filedocumented as of this encounter Visit Diagnoses Not on filedocumented in this encounter Additional Health Concerns Assessment Noted Time PHQ-9 Depression Total Score: 5 04/29/2016 10:10 AM CS T documented as of this encounter
--- OUTSIDE RECORDS SUMMARY | 2022-01-12 12:34 | XMS_ITS | Encounter Summary ---
:1955 Author Organization [facility] Address [address] [place] [address] Care Team Providers Name Role Phone Unavailable Primary Care Provider Unavailable Reason for Referral Outpatient (Routine) - Closed Specialty Diagnoses / Procedures Referred By Contact Refer red To Contact Neurology Meghna Valdez M.D ., M.P.H. [facility] [address] [place] [address] Referral ID Status Reason Start Date Expiration Date Visits Requ ested Visits Authorized [id number] Closed 06/09/2020 06/09/2021 1 1 Encounter Details Date Type Department Care Team Description 06/09/2020 Orders Only Department of Neurology in Meghna Valdez M.D., [place], [place] M.P.H. [address] [facility] [address] [place] [address] [place], [place] [phone] (Wo rk) Social History Tobacco Use Types Packs/Day Years [...] do you attend caodaism or Never 2021 pentecostalism services? Do you belong to any clubs or Yes 12/12/2021 organizations such as caodaism groups, unions, fraTaxi 24/7 or athletic groups, or school groups? How [...] as of this encounter Plan of Treatment Scheduled Referrals Name Type Priority Associated Diagnoses Order S [facility] Neurology office Outpatient Referral Routine Expe cted: visit (clinic) 06/09/2020 (Approximate), Expires: 06/10/2023 documented as of this encounter Visit Diagnoses Not on filedocumented in this encounter Additional Health Concerns Assessment Noted Time PHQ-9 Depression Total Score: 5 04/29/2016 10:10 AM CS T documented as of this encounter
--- OUTSIDE RECORDS SUMMARY | 2022-01-12 12:34 | XMS_ITS | Encounter Summary ---
:1955 Author Organization [facility] Address [address] [place] [address] Care Team Providers Name Role Phone Unavailable Primary Care Provider Unavailable Reason for Referral Outpatient (Routine) - Closed Specialty Diagnoses / Procedures Referred By Contact Refer red To Contact Spine Diagnoses Radiculopathy Lumbar Radiculopathy Cervical Anoop Emery M.D. [address] [address] Referral ID Status Reason Start Date Expiration Date Visits Requ ested Visits Authorized [id number] Closed 05/22/2021 05/22/2022 1 1 DIPPER Encounter Details Date Type Department Care Team Description 05/22/2021 [facility] Yuly, Radi culopathy Lumbar (Primary Dx); AND CLINICS Anoop Ruiz M.D. Radiculopathy Cervical [address] [place] [address] [place] [address] Social History Tobacco Use Types Packs/Day Years [...] do you attend jain or Never 2021 worship services? Do you belong to any clubs or Yes 12/12/2021 organizations such as jain groups, unions, fraZirtual or athletic groups, or school groups? How [...] have completed or the highest Tiara, MEd, [employer] FLATBED DRIVER, ODILIA) degree you have received? Sex Assigned at Date Recorded Female 07/21/2017 2:58 PM CDT documented as of this encounter Plan of Treatment Scheduled Referrals Name Type Priority Associated Diagnoses Order S [facility] Outpatient Referral Routine Radiculopath y Lumbar Expected: Referral Radiculopathy Cervical 05/22 (Approximate), Expires: 08/22/2022 documented as of this encounter Visit Diagnoses Diagnosis Radiculopathy Lumbar - Primary Radiculopathy Cervical documented in this encounter Additional Health Concerns Assessment Noted Time PHQ-9 Depression Total Score: 5 04/29/2016 10:10 AM CS T documented as of this encounter
--- OUTSIDE RECORDS SUMMARY | 2022-01-12 12:34 | XMS_ITS | Encounter Summary ---
:1955 Author Organization [facility] Address [address] [place] [address] Care Team Providers Name Role Phone Unavailable Primary Care Provider Unavailable Reason for Visit Outpatient (Routine) - Closed Specialty Diagnoses / Procedures Referred By Contact Refer red To Contact Spine Lia Junior, ALESIA CCandyN.P., [facility] M.S.N. [address] [place], [place] [phone] Referral ID Status Reason Start Date Expiration Date Visits Requ ested Visits Authorized [id number] Closed 11/12/2021 11/11/2024 1 1 Encounter Details Date Type Department Care Team Description 11/26/2021 Telemedicine Department of Spine in [facility] Myelo jak Cervical ([facility]) (Primary Dx); [place], [place] Flynn Chinchilla Stenosis Spinal Cervical; [address] [facility] [address] [facility] Stenosis Spinal Lumbar [place] [phone] Social History Tobacco Use Types Packs/Day Years [...] or relatives? How often do you attend pentecostal or Never 2021 restoration services? Do you belong to any clubs or Yes 12/12/2021 organizations such as pentecostal groups, unions, fraShout TV or athletic groups, or school groups? How [...] place to sleep or slept in a jail (including now)? Education Answer Date Recorded What is the highest level of school Master's degree (e.g., M A, MS, 07/15/2020 you have completed or the highest Tiara, MEd, SENIOR TAX SPECIALIST, ODILIA) degree you have received? Sex Assigned at Date Recorded Female 07/21/2017 2:58 PM CDT documented as of this encounter Progress Notes Amor Garrett M.D. - 11/26/2021 8:30 AM CDT SUBJECTIVE CHIEF COMPLAINT: Cervical and lumbar stenosis. Consult conducted via real-time audio/video technology by Amor Garrett M.D. in [facility] to the patient in Patient's Home. HISTORY OF PRESENT ILLNESS Yaz Adames is a 66 y.o. female who is seen for a virtual follow-up visit. She has a history of fibromyalgia, medial epicondylitis, hypertension, diabetes mellitus type 2, diabetic neuropathy, bilateral plantar fasciitis, pulmonary embolism, pelvic floor dysfunction, osteoarthritis, mitral valve prolapse, bilateral TKAs, and lumbar discectomy 10-15 years ago. She has neck and back pain fortwenty years, but has referral and arm symptoms that are more recent. Cervical MRI 11/14/2021 shows progression of cervical spondylosis with multilevel severe spinal canal and neural foraminal narrowing. There is suggestion of cord signal alteration at C5-C6 which was not seen on the prior exam. She has been seen by Dr. Herrera and he has recommended a cervical laminoplasty C3-C7. She wishes to proceed. OBJECTIVE GENERAL: Well-developed, well-nourished individual in no acute distress. MENTAL: Appropriate mood and affect. Grossly oriented with coherent speech ASSESSMENT / PLAN #1 Cervical stenosis with myeloradiculopathy #2 Lumbar stenosis with possible neurogenic claudication I reviewed the MRI images with her. She plans to follow through with the cervical laminoplasty. She may need additional intervention with regards to her lumbar stenosis. I would be happy to see her in follow-up as needed. This was a 15 minute video encounter. Electronically signed by: Amor Garrett M.D. 11/26/21 7:19 PM CDT documented in this encounter Plan of Treatment Not on filedocumented as of this encounter Visit Diagnoses Diagnosis Myelopathy Cervical (HCC) - Primary Stenosis Spinal Cervical Stenosis Spinal Lumbar With Neurogenic C laudication documented in this encounter Additional Health Concerns Assessment Noted Time PHQ-9 Depression Total Score: 5 04/29/2016 10:10 AM CS T documented as of this encounter
--- OUTSIDE RECORDS SUMMARY | 2022-01-12 12:34 | XMS_ITS | Encounter Summary ---
:1955 Author Organization [facility] Address [address] [place] [address] Care Team Providers Name Role Phone Unavailable Primary Care Provider Unavailable Encounter Details Date Type Department Care Team Description 11/09/2021 Clinical Communication Visit Review in [place], [place] [address] [place] [address] Social History Tobacco Use Types Packs/Day Years [...] or relatives? How often do you attend uatsdin or Never 2021 mormonism services? Do you belong to any clubs or Yes 12/12/2021 organizations such as uatsdin groups, unions, fraternal or athletic groups, or [...] of school Master's degree (e.g., Jose Roberto Loza, , 07/15/2020 you have completed or the highest Tiara, MEd, PROFESSOR OF BIOLOGICAL SCIENCES, ODILIA) degree you have received? Sex Assigned [...]
--- OUTSIDE RECORDS SUMMARY | 2022-01-12 12:34 | XMS_ITS | Encounter Summary ---
:1955 Author Organization [facility] Address [address] [place] [address] Care Team Providers Name Role Phone Unavailable Primary Care Provider Unavailable Encounter Details Date Type Department Care Team Description 06/11/2019 Clinical Communication Department of Provider, Ophthalmology in [place], [place] [address] [place] [address] Social History Tobacco Use Types Packs/Day Years [...] or relatives? How often do you attend judaism or Never 2021 cheondoism services? Do you belong to any clubs or Yes 12/12/2021 organizations such as judaism groups, unions, fraternal or athletic groups, or [...]
--- OUTSIDE RECORDS SUMMARY | 2022-01-12 12:34 | XMS_ITS | Encounter Summary ---
:1955 Author Organization [facility] Address [address] [place] [address] Care Team Providers Name Role Phone Unavailable Primary Care Provider Unavailable Encounter Details Date Type Department Care Team Description 05/18/2020 Orders Only Department of Neurology in eMghna Valdez M.D.[place], [place] M.P.H. [address] [place] [address] [address] [place] [address] [place], [place] [phone] (Wo rk) Social History Tobacco Use Types [...] or relatives? How often do you attend samaritan or Never 2021 synagogue services? Do you belong to any clubs or Yes 12/12/2021 organizations such as samaritan groups, unions, fraternal or athletic groups, or [...] place to sleep or slept in a fci (including now)? Sex Assigned at Date Recorded Female 07/21/2017 2:58 PM CDT documented as of this encounter Plan of Treatment Not on filedocumented as of this encounter Visit Diagnoses Not on filedocumented in this encounter Additional Health Concerns Assessment Noted Time PHQ-9 Depression Total Score: 5 04/29/2016 10:10 AM CS T documented as of this encounter
--- OUTSIDE RECORDS SUMMARY | 2022-01-12 12:34 | XMS_ITS | Encounter Summary ---
:1955 Author Organization [facility] Address [address] [place] [address] Care Team Providers Name Role Phone Unavailable Primary Care Provider Unavailable Encounter Details Date Type Department Care Team Description 08/18/2019 Clinical Communication Division of Prescheduling, Gastroenterology in [place], [place] [address] [place] [address] Social History Tobacco Use Types Packs/Day Years [...] do you attend islam or Never 2021 faith services? Do you belong to any clubs [...]
--- OUTSIDE RECORDS SUMMARY | 2022-01-12 12:34 | XMS_ITS | Encounter Summary ---
:1955 Author Organization [facility] Address [address] [place] [address] Care Team Providers Name Role Phone Unavailable Primary Care Provider Unavailable Reason for Referral MRI/CAT/PET Scan (Routine) - Closed Specialty Diagnoses / Procedures Referred By Contact Refer red To Contact Radiology Diagnoses Stenosis Spinal Cervical [facility] Procedures MR Cervical Spine without IV Contrast C.N.P., M.S.N. [address] [place] [phone] Referral ID Status Reason Start Date Expiration Date Visits Requ ested Visits Authorized [id number] Closed 11/12/2021 11/12/2022 1 1 Reason for Visit MRI/CAT/PET Scan (Routine) - Closed Specialty Diagnoses / Procedures Referred By Contact Refer red To Contact Radiology Diagnoses Stenosis Spinal Cervical Lia Junior APRN, [facility] Procedures MR Cervical Spine without IV Contrast C.N.P., M.S.N. [address] [place] [phone] Referral ID Status Reason Start Date Expiration Date Visits Requ ested Visits Authorized [id number] Closed 11/12/2021 11/12/2022 1 1 Encounter Details Date Type Department Care Team Description 11/14/2021 Hospital Encounter Department of [place], Lia Stenos is Spinal Radiology, Jay Hammond APRN, C.N.P., Melida armstrong Arun, in M.S.N. [place], [address] [place], [place] [address] [place] [address] [place], [place] [phone] (Work) [phone] Social History Tobacco Use Types Packs/Day Years [...] or relatives? How often do you attend mormon or Never 2021 congregation services? Do you belong to any clubs or Yes 12/12/2021 organizations such as mormon groups, unions, fraternal or athletic groups, or [...] place to sleep or slept in a detention (including now)? Education Answer Date Recorded What is the highest level of school Master's degree (e.g., M Dago, MS, 07/15/2020 you have completed or the highest Tiara, MEd, PIT LABORER, ODILIA) degree you have received? Sex Assigned [...] a 3 04/04/2017 12/24/2021 day. for testing neomycin-polymyxin 0 10/28/20212021 B-dexameth (MAXITROL) 3.5 mg/g-10,000 unit/g-0.1 % ophthalmic ointment oxyCODONE-acetaminophen Take 1-2 tablets 0 202012/27/2021 (PERCOCET) 5-325 mg per by mouth 3 (three) tablet times a day as needed. documented as of this encounter Plan of Treatment Not on filedocumented as of this encounter Procedures Procedure Name Priority Date/Time Associated Comments Diagnosis MR CERVICAL SPINE RAD - Routine 11/14/2021 2:49 Stenosis Spinal Res ults for this WITHOUT IV (most inpatients PM CDT Cervical procedure a re in CONTRAST and all the results outpatients) section. documented in this encounter Results MR Cervical Spine without IV Contrast (11/14/2021 2:49 PM CDT) Anatomical Region Laterality Modality Spine, Cervical Spine, Neuroradiology RST LOS, N/A Magnetic Resonance Neuroradiology ARZ LOS, Neuroradiology FLA LOS Specimen (Source) Anatomical Collection [...] WITHOUT IV CONTRAST COMPARISON: Cervical spine MRI 1. FINDINGS: Image quality is degraded by m [...] IV CONTR AST COMPARISON: Cervical spine MRI 1. FINDINGS: Image quality is degraded by m [...] APRN, C.N.P., M.S.N. IMG MRI PROCEDURE S documented in this encounter Visit Diagnoses Diagnosis Stenosis Spinal Cervical documented in this encounter Additional Health Concerns Assessment Noted Time PHQ-9 Depression Total Score: 5 04/29/2016 10:10 AM CS T documented as of this encounter
--- OUTSIDE RECORDS SUMMARY | 2022-01-12 12:34 | XMS_ITS | Encounter Summary ---
:1955 Author Organization [facility] Address [address] [place] [address] Care Team Providers Name Role Phone Unavailable Primary Care Provider Unavailable Reason for Visit Outpatient (Routine) - Closed Specialty Diagnoses / Procedures Referred By Contact Refer red To Contact Diagnoses Pain Eye Left Mychal Garcia, [facility] Procedures PM Nerve Block injection Other; left infraorbital nerve; US-Guided; Left PLorena San, M.SCandy [address] [place] [phone] Referral ID Status Reason Start Date Expiration Date Visits Requ ested Visits Authorized [id number] Closed 06/23/2020 06/23/2021 1 1 Encounter Details Date Type Department Care Team Description 07/05/2020 Procedure visit Division of Pain Medicine Isacc Knight, Pain Eye Left in [facility] karthik Prutet 200 [facility] 200 [place] [address] [place], [place] [phone] (Wo rk) Social History Tobacco Use Types [...] or relatives? How often do you attend bahai or Never 2021 bahai services? Do you belong to any clubs or Yes 12/12/2021 organizations such as bahai groups, unions, fraternal or athletic groups, or [...] PM CDT documented as of this encounter Procedure Notes Tho Knight M.D. - 07/05/2020 10:30 AM CDTAssociated Order(s): PM Nerve Block injection Other; left infraorbital nerve; US-Guided; Left Pre-Procedure Diagnose(s): Pain Eye Left Post-Procedure Diagnose(s): Pain Eye Left PM Nerve Block injection Other; left infraorbital nerve; US-Guided; Left Date/Time: 07/05/2020 10:30 AM Performed by: Tho Knight M.D. Authorized by: Mychal Garcia P.A.-Jaswinder, M.S. Care team members present 1. Alon Lemon M.D. 2. Katia Zaldivar, L.P.NCandy PROCEDURE SUMMARY Indications: Pain Pre procedure pain score: 2/10 Post procedure pain score: 0/10 Body area: head/face/neck Procedure location (head/face/neck nerve): other Other head/face/neck nerve: L infraorbital nerve injection Other head/face/neck nerve position: supine Needle size: 25 G Needle length: 1.5 in Nerve block type: single injection Nerve stimulator: No IMAGING Ultrasound guidance?: The use of direct ultrasound visualization of the needle was required (rather than a non-guided injection) to ensure accurate injection delivery and to maximize clinical benefit beyond that obtained with a non-guided injection. Additionally, there can be diagnostic specificity when evaluating effectiveness of the injection, and for safety purposes to minimize risk of bleeding orinjury to surrounding structures. Images have been archived in Stepsss: click the 'Dept Filter' button in Stepsss, then the 'Clear (Show All)' button, then OK. Ultrasound probe (MHz): linear high-frequency Needle visualization: in-plane Needle approach: lateral to medial Fluoroscopic guidance: No INJECTED MEDICATIONS: Injection(s), anesthetic agent(s) and/or steroid(s): The injected medication(s) listed was divided equally between the identified injection location(s) Total volume of injectate (mL): 1.5 Total steroid in injectate (mg): 2.5 Lidocaine injection 2%: 1.25 mL. 2.5 mg dexAMETHasone 10 mg/mL PROCEDURE DETAILS Other head/face/neck nerve description: The patient was brought to the procedure suite and placed inthe appropriate position. Prior to the procedure, the location of the nerve was identified in the affected region and the optimal needle path determined. Thereafter, a needle was advanced near the nerve and after negative aspiration, the medication was injected. Following the injection, the needle waswithdrawn. The patient tolerated the procedure well and there were no apparent complications. After an appropriate amount of observation, the patient was dismissed from the clinic in good condition under their own power. Complications: no apparent complications ADDITIONAL PROCEDURE COMMENTS Infra-orbital notch easily identified and targeted. She tolerated the procedure well. CONSENT Consent obtained: written UNIVERSAL PROTOCOL All relevant documentation and testing were reviewed and available. All required blood products, implants, devices and or special equipment were made available as applicable. Pre-procedure verificationwas conducted and the correct site was marked if required. A fire risk assessment was done as applicable. The procedural time-out was conducted prior to performing the procedure and confirmed in a procedural pause. PRE-PROCEDURE DETAILS Appropriate hand hygiene, gown, cap, mask, protective eyewear, sterile gloves, skin preparation, sterile drape, and strict aseptic technique were utilized as applicable for the procedure.: yes Skin preparation: Alcohol SEDATION / ANESTHESIA Anesthesia method: local infiltration Local infiltrate type: lidocaine ATTESTATION STATEMENT A resident or fellow participated in the procedure, and the education consultant was present for the entire procedure. OPERATIVE NOTE INFORMATION Specimens: 0 Drains: 0 Estimated blood loss: 0 Implants: 0 documented in this encounter Plan of Treatment Not on filedocumented as of this encounter Procedures Procedure Name Priority Date/Time Associated Diagnosis Comme nts PM NERVE BLOCK Routine 07/05/2020 10:30 AM Pain Eye Left Resul ts for this INJECTION CDT procedure are i n the results section. documented in this encounter Results PM Nerve Block injection Other; left infraorbital nerve; US-Guided; Left (07/05/2020 10:30 AM CDT) Specimen (Source) Anatomical Location Collection Method / Collectio n Time Received Time / Laterality Volume Narrative Tho Knight M.D. - 07/05/2020 10:30 AM CDT Tho Knight M.D. ? 07/06/2020 ??3:12 PM PM Nerve Block injection Other; left inf raorbital nerve; US-Guided; Left Date/Time: 07/05/2020 10:30 AM Performed by: Tho Knight M.D. Authorized by: Mychal Garcia PCandyA.- CCandy, M.S. Care team members present 1. Alon Lemon M.D. 2. Katia Zaldivar LCandyPCandyNCandy PROCEDURE SUMMARY Indications: Pain Pre procedure pain score: 2/10 Post procedure pain score: 0/10 ?? Body area: head/face/neck Procedure location (head/face/neck nerve ): other Other head/face/neck nerve: L infraorbit al nerve injection Other head/face/neck nerve position: sup ine Needle size: 25 G Needle length: 1.5 in Nerve block type: single injection Nerve stimulator: No IMAGING Ultrasound guidance?: The use of direct ultrasound visualization of the needle was required (rather than a non-g uided injection) to ensure accurate injection delivery and to maxim ize clinical benefit beyond that obtained with a non-guided injection. ?? Additionally, there can be diagnostic specificity when evaluating e ffectiveness of the injection, and for safety purposes to minimize risk of bleeding or injury to surrounding structures. ?? Images have been archived in [employer]: click the 'Dept Filter' button in Stepsss, then the 'Clear (Show All)' button, then OK. Ultrasound probe (MHz): linear high-freq uency Needle visualization: in-plane Needle approach: lateral to medial Fluoroscopic guidance: No ?? INJECTED MEDICATIONS: Injection(s), anes thetic agent(s) and/or steroid(s): The injected medication(s) listed was di vided equally between the identified injection location(s) Total volume of injectate (mL): 1.5 Total steroid in injectate (mg): 2.5 Lidocaine injection 2%: 1.25 mL. 2.5 mg dexAMETHasone 10 mg/mL PROCEDURE DETAILS Other head/face/neck nerve description: The patient was brought to the procedure suite and placed in the approp riate position. ??Prior to the procedure, the location of the nerve was identified in the affected region and the optimal needle path determined. Thereafter, a needle was advanced near the nerve and after negative aspira tion, the medication was injected. Following the injection, the needle was withdrawn. ??The patient tolerated the procedure well and there were no jasiel arent complications. ??After an appropriate amount of observation, the p atient was dismissed from the clinic in good condition under their own power. ? Complications: no apparent complications ?? ADDITIONAL PROCEDURE COMMENTS Infra-orbital notch easily identified an d targeted. ??She tolerated the procedure well. CONSENT Consent obtained: written UNIVERSAL PROTOCOL All relevant documentation and testing w ere reviewed and available. All required blood products, implants, devic es and or special equipment were made available as applicable. Pre-proced ure verification was conducted and the correct site was marked if required. A fire risk assessment was done as applicable. The procedural time-out w as conducted prior to performing the procedure and confirmed in a procedu ral pause. PRE-PROCEDURE DETAILS Appropriate hand hygiene, gown, cap, mas k, protective eyewear, sterile gloves, skin preparation, sterile drape, and strict aseptic technique were utilized as applicable for the procedure .: yes ?? Skin preparation: ??Alcohol SEDATION / ANESTHESIA Anesthesia method: local infiltration Local infiltrate type: lidocaine ATTESTATION STATEMENT A resident or fellow participated in the procedure, and the education consultant was present for the entire procedure. OPERATIVE NOTE INFORMATION Specimens: 0 Drains: 0 Estimated blood loss: 0 Implants: 0 Mychal Garcia P.A.-C., M.S. PROCEDURE/MINOR SURGIC AL ORDERABLES documented in this encounter Visit Diagnoses Diagnosis Pain Eye Left documented in this encounter Administered Medications Inactive Administered Medications - up to 3 most recent administrations Medication Order MAR Action Action Date Dose Rate Site dexAMETHasone injection 2.5 mg Given 07/05/2020 10:30 AM CDT 2.5 mg (DECADRON) 2.5 mg, injection, One-Time Injection, Starting on Fri07/05/20 at 1030, For 1 dose documented in this encounter Additional Health Concerns Assessment Noted Time PHQ-9 Depression Total Score: 5 04/29/2016 10:10 AM CS T documented as of this encounter
--- OUTSIDE RECORDS SUMMARY | 2022-01-12 12:34 | XMS_ITS | Encounter Summary ---
:1955 Author Organization [facility] Address [address] [place] [address] Care Team Providers Name Role Phone Unavailable Primary Care Provider Unavailable Encounter Details Date Type Department Care Team Description 05/22/2021 Clinical Communication Department of Spine [facility] in [facility] [address] [place] [address] Social History Tobacco Use Types Packs/Day Years [...] or relatives? How often do you attend confucianism or Never 2021 lutheran services? Do you belong to any clubs or Yes 12/12/2021 organizations such as confucianism groups, unions, fraternal or athletic groups, or [...] place to sleep or slept in a residential (including now)? Education Answer Date Recorded What is the highest level of school Master's degree (e.g., M Dago, MS, 07/15/2020 you have completed or the highest Tiara, MEd, IMPREGNATING MACHINE OPERATOR, ODILIA) degree you have received? Sex Assigned at Date Recorded Female 07/21/2017 2:58 PM CDT documented as of this encounter Miscellaneous Notes Telephone Encounter - Meghana Rodríguez - 05/22/2021 2:42 PM [facility] Question Set documented in this encounter Plan of Treatment Not on filedocumented as of this encounter Visit Diagnoses Not on filedocumented in this encounter Additional Health Concerns Assessment Noted Time PHQ-9 Depression Total Score: 5 04/29/2016 10:10 AM CS T documented as of this encounter
--- OUTSIDE RECORDS SUMMARY | 2022-01-12 12:34 | XMS_ITS | Encounter Summary ---
:1955 Author Organization [facility] Address [address] [place] [address] Care Team Providers Name Role Phone Unavailable Primary Care Provider Unavailable Reason for Referral Specialty Diagnoses / Procedures Referred By Contact Refer red To Contact Jorden Xiong M.D. [facility] Region [address] [place] [phone] Referral ID Status Reason Start Date Expiration Date Visits Requ ested Visits Authorized ICE CONSULTANT Encounter Details Date Type Department Care Team Description 05/17/2020 Orders Only [facility] Sa paul Douglas M.D. [address] [place], [place] [phone] (Wo rk) Social History Tobacco Use Types [...] or relatives? How often do you attend spiritism or Never 2021 moravian services? Do you belong to any clubs or Yes 12/12/2021 organizations such as spiritism groups, unions, fraternal or athletic groups, or [...] slept in a skilled nursing (including now)? Sex Assigned at Date Recorded Female 07/21/2017 2:58 PM CDT documented as of this encounter Plan of Treatment Scheduled Referrals Name Type Priority Associated Order Schedule Diagnoses Covid immunization Outpatient Referral Routine Ex pected: office visit Initial 021 (Approximate), Expires: 05/17/2021 documented as of this encounter Visit Diagnoses Not on filedocumented in this encounter Additional Health Concerns Assessment Noted Time PHQ-9 Depression Total Score: 5 04/29/2016 10:10 AM CS T documented as of this encounter
--- OUTSIDE RECORDS SUMMARY | 2022-01-12 12:34 | XMS_ITS | Encounter Summary ---
:1955 Author Organization [facility] Address [address] [place] [address] Care Team Providers Name Role Phone Unavailable Primary Care Provider Unavailable Encounter Details Date Type Department Care Team Description 05/15/2021 [facility] Ailabouni, Radi culopathy Lumbar (Primary Dx); AND CLINICS Anoop Ruiz M.D. Radiculopathy Cervical [address] [facility] [address] [place] [address] W [phone] [place] [address] Social History Tobacco Use Types Packs/Day Years [...] or relatives? How often do you attend latter-day or Never 2021 scientology services? Do you belong to any clubs or Yes 12/12/2021 organizations such as latter-day groups, unions, fraternal or athletic groups, or [...] or slept in a retirement (including now)? Education Answer Date Recorded What is the highest level of school Master's degree (e.g., M A, MS, 07/15/2020 you have completed or the highest Tiara, MEd, PEDIATRICIAN/MEDICAL DOCTOR, ODILIA) degree you have received? Sex Assigned [...]
--- OUTSIDE RECORDS SUMMARY | 2022-01-12 12:34 | XMS_ITS | Encounter Summary ---
:1955 Author Organization [facility] Address [address] [place] [address] Care Team Providers Name Role Phone Unavailable Primary Care Provider Unavailable Encounter Details Date Type Department Care Team Description 07/20/2020 Orders Only Division of Pain Mychal Garcia, Pain Neuropathic Medicine in [facility] (Primary Dx) [place], [place] [address] [place] [address] [address] [place] [phone] Social History Tobacco Use Types Packs/Day Years [...] or relatives? How often do you attend christian or Never 2021 worship services? Do you belong to any clubs or Yes 12/12/2021 organizations such as christian groups, unions, fraternal or athletic groups, or [...] have completed or the highest Tiara, MEd, ART CRITIC, ODILIA) degree you have received? Sex Assigned at Date Recorded Female 07/21/2017 2:58 PM CDT documented as of this encounter Plan of Treatment Not on filedocumented as of this encounter Visit Diagnoses Diagnosis Pain Neuropathic - Primary documented in this encounter Additional Health Concerns Assessment Noted Time PHQ-9 Depression Total Score: 5 04/29/2016 10:10 AM CS T documented as of this encounter
--- OUTSIDE RECORDS SUMMARY | 2022-01-12 12:34 | XMS_ITS | Encounter Summary ---
:1955 Author Organization [facility] Address [address] [place] [address] Care Team Providers Name Role Phone Unavailable Primary Care Provider Unavailable Reason for Referral MRI/CAT/PET Scan (Routine) - Closed Specialty Diagnoses / Procedures Referred By Contact Refer red To Contact Radiology Diagnoses Neuralgia Trigeminal Meghna Valdez M.D., [facility] [place] Region Procedures MR Face without and with IV Contrast MR Brain without IV Contrast OR MRI BRAIN WO [facility] MRI BRAIN [facility] [address] [place] [phone] Referral ID Status Reason Start Date Expiration Date Visits Requ ested Visits Authorized [id number] Closed 06/13/2020 06/13/2021 1 1 Outpatient (Routine) - Closed Specialty Diagnoses / Procedures Referred By Contact Refer red To Contact Neurology Meghna Valdez M.D ., [facility] Region [address] [place] [phone] Referral ID Status Reason Start Date Expiration Date Visits Requ ested Visits Authorized [id number] Closed 06/13/2020 06/13/2021 1 1 Outpatient (Routine) - Closed Specialty Diagnoses / Procedures Referred By Contact Trisha herman To Contact Pain Medicine Diagnoses Neuralgia Trigeminal Meghna Valdez M.D., [facility] [address] [place] [phone] Referral ID Status Reason Start Date Expiration Date Visits V isits Requested Authorized [id number] Closed Specialty 06/13/2020 06/13/2021 1 1 Services Required Reason for Visit Reason Comments Trigeminal neuralgia pain follow up . Would like refer ral to [place] as recommended Outpatient (Routine) - Closed Specialty Diagnoses / Procedures Referred By Contact Trisha herman To Contact Neurology Meghna Valdez M.D ., M[facility] [address] [place] [phone] Referral ID Status Reason Start Date Expiration Date Visits Requ ested Visits Authorized [id number] Closed 06/09/2020 06/09/2021 1 1 Encounter Details Date Type Department Care Team Description 06/13/2020 Office Visit Department of Meghna Valdez, Neuralgia Trigeminal Neurology in [place], [facility] (Primary Dx) [place], [place] [address] [phone] Social History Tobacco Use Types Packs/Day Years [...] or relatives? How often do you attend mu-ism or Never 2021 pentecostalism services? Do you belong to any clubs or Yes 12/12/2021 organizations such as mu-ism groups, unions, fraternal or athletic groups, or [...] place to sleep or slept in a chcf (including now)? Sex Assigned at Date Recorded Female 07/21/2017 2:58 PM CDT documented as of this encounter Last Filed Vital Signs Vital Sign Reading Time Taken Comments Blood Pressure 144/61 06/13/2020 3:27 PM CDT Pulse 70 06/13/2020 3:27 PM CDT Temperature - - Respiratory Rate - - Oxygen Saturation - - Inhaled Oxygen Concentration - - Weight 121 kg (267 lb 3.2 oz) 06/13/2020 3:27 PM CDT Height - - Body Mass Index 39.13 09/24/2017 2:18 PM CDT documented in this encounter Progress Notes Meghna Valdez M.D., M[facility]P.[facility] - 06/13/2020 3:30 PM CDT SUBJECTIVE CHIEF COMPLAINT / REASON FOR VISIT Yaz Adames is a 65 y.o. female who presents for evaluation of Trigeminal neuralgia pain (follow up . Would like referral to [place] as recommended). HISTORY OF PRESENT ILLNESS This patient returns with her daughter in more dire straits that she had previously been. She continues to have itching burning sensation below her left eye and in her eye that pregabalin 150 mg b.i.d.and carbamazepine at 400 mg b.i.d. have not improved. She did have a history of shingles on her torso but denies having had that on her face her eye and her daughter corroborates that history. So this remains on remitted. She has subsequently developed pain along the right jaw particularly the back ofthe jaw and hurts to eat. She has previously seen a dentist who did not find any problems. She does note that touching the bottom of the jaw is painful. She says the pain today is about a 6/10 but can be greater than that. She does not have a fever or anything that would suggest she has infected tooth. Up to now I have not imaged her head but I think it is appropriate to do so now. The discomfort in the left face and I is an itching burning not really electric. In the pain in the right jaw region is as she described stabbing and gnawing again not shooting. No past medical history on file. Past Surgical History: Procedure Laterality Date ??? OTHER CONVERTED SHX (SEE COMMENT) N/A 03/22/1997 >Compound F injection, bilateral knees ??? OTHER CONVERTED SHX (SEE COMMENT) N/A 12/18/2011 >Right total knee arthroplasty. ??? OTHER CONVERTED SHX (SEE COMMENT) N/A 11/09/2013 >1. Fluoroscopically guided radiofrequency denervation of the right L2-3, L3-4 facet joints. ??? OTHER CONVERTED SHX (SEE COMMENT) N/A 11/19/2012 >1. Fluoroscopically guided radiofrequency denervation of the right L2-3 and L3-4 facet joints. ??? OTHER CONVERTED SHX (SEE COMMENT) N/A 11/28/2011 >Fluoroscopically-guided medial branch nerve/dorsal ramus blocks of the bilateral L2-3 and L3-4 facet ??? OTHER CONVERTED SHX (SEE COMMENT) N/A 12/05/2011 >1. Fluoroscopically-guided radiofrequency denervation of the left L2-3, L3-4 facet joints. ??? OTHER CONVERTED SHX (SEE COMMENT) N/A 12/04/2011 >1. Fluoroscopically guided radiofrequency denervation of the right L2-3, 3-4 facet joints. ??? OTHER CONVERTED SHX (SEE COMMENT) N/A 12/02/2011 >Fluoroscopically-guided medial branch nerve/dorsal ramus blocks of the L2-3, L3-4 bilateral facet joints ??? OTHER CONVERTED SHX (SEE COMMENT) N/A 11/18/2013 >1. Fluoroscopically guided radiofrequency denervation of the left L2-3, L3-4 facet joint(s). ??? OTHER CONVERTED SHX (SEE COMMENT) N/A 11/20/2012 >1. Fluoroscopically guided radiofrequency denervation of the left L2-3, L3-4 facet joint(s). MEDICATIONS: Current Outpatient Medications: ??? acyclovir (for_ZOVIRAX) 200 mg capsule, Take by mouth as needed. , Disp: , Rfl: ??? CALCIUM CARBONATE/VITAMIN D3 (CALCIUM WITH VITAMIN D ORAL), Take 1 tablet by mouth 3 (three) times a day., Disp: , Rfl: ??? carBAMazepine (CARBATROL) 200 mg 12 hr capsule, Take 1 capsule (200 mg total) by mouth 2 (two) times a day., Disp: 180 capsule, Rfl: 3 ??? co-enzyme Q-10 (CO Q-10) 100 mg capsule, Take 1 capsule by mouth daily., Disp: , Rfl: ??? CONTOUR NEXT LEV 2 CONTROL JONNY solution, U UTD, Disp: , Rfl: 0 ??? CONTOUR NEXT STRIPS strips, 2 (two) times a day. for testing, Disp: , Rfl: 3 ??? cranberry 400 mg capsule, Take by mouth daily., Disp: , Rfl: ??? fluticasone propionate (FLONASE) 50 mcg/actuation nasal spray, Administer into nostril(s)., Disp: , Rfl: ??? FSH/FLX/PRIM/CUR/BOR/OM3,6,9 5 (OMEGA 3-6-9 FATTY ACIDS ORAL), Take 1 capsule by mouth daily., Disp: , Rfl: ??? ginkgo biloba 40 mg tablet, Take 120 mg by mouth., Disp: , Rfl: ??? hydroCHLOROthiazide (for_HYDRODIURIL) 25 mg tablet, , Disp: , Rfl: ??? ibuprofen (ADVIL,MOTRIN) 800 mg tablet, Take 800 mg by mouth as needed., Disp: , Rfl: ??? IRON,CARBONYL/ASCORBIC ACID (VITRON-C ORAL), Take 1 tablet by mouth 2 (two) times a day., Disp: , Rfl: ??? loratadine (for_CLARITIN) 10 mg tablet, Take 1 tablet by mouth daily., Disp: , Rfl: ??? mecobal-levomefolat Ca-B6 phos 3-35-2 mg tablet, TAKE 1 TABLET BY MOUTH TWICE DAILY, Disp: , Rfl: ??? metFORMIN (for_GLUCOPHAGE) 500 mg tablet, , Disp: , Rfl: ??? MICROLET LANCET [facility], 2 (two) times a day. for testing, Disp: , Rfl: 3 ??? multivitamin tablet, multivitamin, Disp: , Rfl: ??? nystatin (for_MYCOSTATIN) 100,000 unit/gram cream, , Disp: , Rfl: ??? oxyCODONE-acetaminophen (PERCOCET) 5-325 mg per tablet, Take 1-2 tablets by mouth 3 (three) times a day as needed., Disp: , Rfl: ??? pramipexole (MIRAPEX) 0.125 mg tablet, Take 2 tablets by mouth daily., Disp: , Rfl: ??? pregabalin (LYRICA) 100 mg capsule, Take 100 mg by mouth daily. Taking in the afternoon, Disp: ,Rfl: ??? pregabalin (LYRICA) 150 mg capsule, Take 1 capsule (150 mg total) by mouth 2 (two) times a day.,Disp: 60 capsule, Rfl: 5 ??? traZODone (DESYREL) 100 mg tablet, Take 100 mg by mouth daily. Taking 2 tablets at bedtime, Disp: , Rfl: ??? turmeric root extract 500 mg capsule, Take by mouth daily., Disp: , Rfl: ??? venlafaxine XR (EFFEXOR XR) 150 mg 24 hr capsule, Take 1 capsule by mouth daily., Disp: , Rfl: ??? venlafaxine XR (EFFEXOR-XR) 75 mg 24 hr capsule, Take 75 mg by mouth daily. Take with 150 mg = 225 mg total daily., Disp: , Rfl: ??? VOLTAREN 1 % gel, , Disp: , Rfl: ??? albuterol inhaler, Inhale., Disp: , Rfl: ??? alcaftadine 0.25 % drops, INT 1 DROP IN OU D, Disp: , Rfl: ??? amoxicillin (AMOXIL) 500 mg capsule, Take 500 mg by mouth., Disp: , Rfl: ??? hydrocortisone (ANUSOL-HC) 25 mg suppository, Insert 25 mg into the rectum., Disp: , Rfl: ??? prednisoLONE acetate (PRED FORTE) 1 % ophthalmic suspension, SHAKE LQ AND INT 1 GTT IN OS QID FOR 7 DAYS THEN STOP, Disp: , Rfl: ??? pregabalin (LYRICA) 50 mg capsule, Take 1 capsule (50 mg total) by mouth daily., Disp: 90 capsule, Rfl: 3 ??? sennosides (SENOKOT) 8.6 mg tablet, Take 8.6 mg by mouth daily. 3 tablets, Disp: , Rfl: ??? SENNOSIDES/DOCUSATE SODIUM (SENNA WITH DOCUSATE SODIUM ORAL), Take 3 tablets by mouth daily. , Disp: , Rfl: ??? traZODone (DESYREL) 50 mg tablet, Take 50 mg by mouth at bedtime. 2 tablets, Disp: , Rfl: ??? triamcinolone (for_KENALOG) 0.1 % cream, , Disp: , Rfl: ??? UNABLE TO FIND, lidocaine/ketamine/ketoprofen 2.48 g-5.525 g-5.525 g/114 g topical cream See Instructions, apply twice daily, 60 gm, 5 Refill(s), Disp: , Rfl: ??? UNABLE TO FIND, Lidoderm Compound See Instructions, add 5% gabapentin to 30gm Lidoderm, 30 gm, 5Refill(s), Disp: , Rfl: ??? valACYclovir (VALTREX) 1000 mg tablet, Take 1 tablet by mouth as needed., Disp: , Rfl: ALLERGY: Allergies Allergen Reactions ??? Food Allergy Formula Diarrhea Red Beets ??? Mupirocin Other (see comments) No family history on file. Social History Socioeconomic History ??? Marital status: Spouse name: Not on file ??? Number of children: Not on file ??? Years of education: Not on file ??? Highest education level: Not on file Occupational History ??? Not on file Social Needs ??? Financial resource strain: Not on file ??? Food insecurity Worry: Not on file Inability: Not on file ??? Transportation needs Medical: Not on file Non-medical: Not on file Tobacco Use ??? Smoking status: Former Smoker ??? Smokeless tobacco: Never Used Substance and Sexual Activity ??? Alcohol use: No ??? Drug use: No ??? Sexual activity: Not on file Lifestyle ??? Physical activity Days per week: Not on file Minutes per session: Not on file ??? Stress: Not on file Relationships ??? Social connections Talks on phone: Not on file Gets together: Not on file Attends pentecostalism service: Not on file Active member of club or organization: Not on file Attends meetings of clubs or organizations: Not on file Relationship status: Not on file ??? Intimate partner violence Fear of current or ex partner: Not on file Emotionally abused: Not on file Physically abused: Not on file Forced sexual activity: Not on file Other Topics Concern ??? Not on file Social History Narrative ??? Not on file @ OBJECTIVE Vitals: 06/13/20 1527 BP: 144/61 BP Location: Left arm Patient Position: Sitting Cuff Size: Large Pulse: 70 Weight: 121 kg PHYSICAL EXAM COGNITION: Alert and oriented x 4. CRANIAL NERVES: courtesy van driver II-XII intact and symmetric. She has no redness on the left side of her face butis tender below the eye but no loss of sensation. She is not having any shooting pain in the left eye. Palpation at the angle of the jaw on the right causes pain to increase and the state increased forappeared of time. I see nothing in the mouth. MOTOR: Full strength throughout the upper and lower extremities bilaterally both proximally and distally. Normal tone. No pronator drift. No tremor. Impression: Encounter Diagnoses Name Primary? Neuralgia Trigeminal Yes I am going to have to 2nd guess myself and say that I am less convinced that she has trigeminal neuralgia on the left because the pain is more itching and burning which sounds more like post herpetic neuralgia. The problem is I can not tie the usual suspect of shingles to the pain. Further it does notresponded to pregabalin nor carbamazepine. His for the right jaw I am not convinced that she does not have a problem with either the jaw bone aura two but it could be related to the mandibular branch of the trigeminal nerve. It is certainly nota typical trigeminal neuralgia. I am going to send the patient down to [place] to get a pain consultation since she is in substantial pain. She she has not responded to pregabalin nor carbamazepine in one I think would reasonably be adequate doses. I am going to get an MRI of her head prior to that to look both for a evidence of os teomyelitis in the jaw or infection and it lesions on the cranial nerves. Total time with the patient her daughter today was 30 minutes Meghna Valdez M.D., M.P.[facility]. documented in this encounter Plan of Treatment Scheduled Referrals Name Type Priority Associated Diagnoses Order S chedule Pain Medicine - Outpatient Referral Routine Neuralgia Trigemin al Expected: General consult 06/13/2020 (clinic) (Approximate), Expires: 06/14/2023 Neurology office Outpatient Referral Routine Expe cted: visit (clinic) 09/13/2020 (Approximate), Expires: 06/14/2023 documented as of this encounter Results MR Face without and with IV Contrast (06/21/2020 4:09 PM CDT) Anatomical Region Laterality Modality Head, Neuroradiology RST LOS, Neuroradiology ARZ LOS, N/A Magnetic Resonance Neuroradiology [facility] Specimen (Source) Anatomical Collection Method Collection [...] from chronic microangiopathy, though can be from global implementation manager amie central pontine myelolysis. Moderate chronic microangiopathy [...] from chronic microangiopathy, though can be from global implementation manager amie central pontine myelolysis. Moderate chronic microangiopathy [...] this encounter Visit Diagnoses Diagnosis Neuralgia Trigeminal - Primary Neuralgia Trigeminal documented in this encounter Additional Health Concerns Assessment Noted Time PHQ-9 Depression Total Score: 5 04/29/2016 10:10 AM CS T documented as of this encounter
--- OUTSIDE RECORDS SUMMARY | 2022-01-12 12:34 | XMS_ITS | Encounter Summary ---
:1955 Author Organization [facility] Address [address] [place] [address] Care Team Providers Name Role Phone Unavailable Primary Care Provider Unavailable Reason for Referral Outpatient (Routine) - Closed Specialty Diagnoses / Procedures Referred By Contact Refer red To Contact Neurology Meghna Valdez M.D ., M.P.H. [facility] [address] [place] [address] Referral ID Status Reason Start Date Expiration Date Visits Requ ested Visits Authorized [id number] Closed 04/11/2020 04/11/2021 1 1 ENTICE PATTERN MAKER Reason for Visit Reason Comments Trigeminal neuralgia - left Ref. Appointment Request (Routine) - Closed Specialty Diagnoses / Procedures Referred By Contact Refer red To Contact Neurology Referral ID Status Reason Start Date Expiration Date Visits Requ ested Visits Authorized [id number] Closed 03/13/2020 03/13/2021 1 1 Encounter Details Date Type Department Care Team Description 04/11/2020 Comprehensive Visit Department of Meghna Valdez ia Trigeminal Neurology in [place], (Primary Dx) [place], [place] M.P.H. [address] [place] [address] [address] [facility] [address] [place], [place] [phone] Social History Tobacco Use Types Packs/Day [...] or relatives? How often do you attend sikhism or Never 2021 zoroastrian services? Do you belong to any clubs or Yes 12/12/2021 organizations such as sikhism groups, unions, fraternal or athletic groups, or [...] or slept in a jail (including now)? Sex Assigned at Date Recorded Female 07/21/2017 2:58 PM CDT documented as of this encounter Last Filed Vital Signs Vital Sign Reading Time Taken Comments Blood Pressure 126/66 04/11/2020 10:23 AM APPRENTICE PATTERN MAKER Pulse 90 04/11/2020 10:23 AM APPRENTICE PATTERN MAKER Temperature - - Respiratory Rate - - Oxygen Saturation - - Inhaled Oxygen Concentration - - Weight 120 kg (263 lb 10.7 oz) 04/11/2020 10:23 AM APPRENTICE PATTERN MAKER Height - - Body Mass Index 38.61 09/24/2017 2:18 PM CDT documented in this encounter Patient Instructions Patient InstructionsMeghna Valdez M.D., M.P.H. - 04/11/2020 10:30 AM APPRENTICE PATTERN MAKER Images from the original note were not included. Patient Education Trigeminal Neuralgia Introduction Trigeminal neuralgia (TN) is a condition that causes an intense, stabbing, lightning- like pain to shoot through the face. It affects the trigeminal nerve, which has three branches that deliver sensations from the face to the brain (Figure 1). The pain may happen in a small area of the face or it may spread quickly over a wider area, but it is always confined to the part of the face in the area supplied by the trigeminal nerve. The three regions of the face affected by the trigeminal nerve are the (Figure 2): 1. Ophthalmic - Controls feeling in your eye, upper eyelid and forehead. 2. Maxillary - Controls feeling in your lower eyelid, cheek, nose, upper lip and upper gum. 3. Mandibular - Controls feeling in your jaw, lower lip, lower gum and controls some chewing muscles. Of the three main regions, the second (maxillary) and third (mandibular) are the most commonly affected by TN. More than one region can be affected by a single jolt of pain. The painful attacks are often linked to mild stimulation of a trigger area, most often a spot near the nose on the same side of the face as the pain. The pain usually lasts from a few seconds to a minute. It is commonly described as sudden, shooting, sharp, electric, or burning. Brushing your teeth, shaving, putting on makeup or even a slight breeze can trigger an attack. However, the pain can happen without any triggers and can happen at any time. Symptoms typically begin after the age of 50, but may happen much earlier. TN affects the right sideof the face more often than the left. TN also affects women slightly more often than men. In rare cases, it affects both sides of the face, but the pain does not happen at the same time on both sides. Causes Pain is caused by a disturbance in the normal function of the trigeminal nerve. The cause is unknown. However, in many cases a blood vessel that puts pressure on the trigeminal nerve near the base of the brain is linked to this pain. Less often, a tumor may compress the trigeminal nerve. The nerve can also be damaged when the covering of the nerve fiber (myelin) becomes inflamed or swollen. This is called demyelination. It is usually linked to multiple sclerosis. In some cases, there is no known cause for pain associated with TN. Diagnosis and Treatment Ruling out other disorders or diseases that may cause similar symptoms helps diagnose trigeminal neuralgia. There is no effective cure for TN, but there are effective treatment options. Main treatment options for people with TN can be divided into two categories: ?? Medications to manage the pain. ?? Procedures and surgeries that interfere with nerve function or relieve pressure on the trigeminalnerve. Medication Medication used to control pain works to lessen or block abnormal nerve signals that cause the pain.There are several medications that do this, including the following: ?? Carbamazepine (TegretolTM, CarbatrolTM) ?? Phenytoin (DilantinTM, PhenytekTM) ?? Baclofen (LioresalTM, KemstroTM) ?? Oxcarbazepine (TrileptalTM, TrexapinTM) ?? Lamotrigine (LamictalTM) ?? Gabapentin (NeurontinTM) Although these medications are most commonly used to treat pain associated with TN, there are a number of other medications available. Talk with your health care provider about any possible drug side effects and what may work best for you. Percutaneous procedures Percutaneous (through the skin) needle procedures work to either numb the face where the pain happens, such as in injection therapy/alcohol block, or interfere with nerve function. Injection therapy/alcohol block Alcohol injections target local branches of the trigeminal nerve. These injections are given throughthe skin of the face. The procedure may give temporary pain relief by numbing the area for days or months. While the pain relief brought about by alcohol injections is usually temporary, this procedure may be repeated. Procedures that interfere with trigeminal nerve function There are several procedures that focus on damaging the trigeminal nerve in order to lessen or get rid of the sensation of pain. The procedures target the part of the trigeminal nerve where it divides into its three main branches. This area, called the gasserian ganglion, is located at the base of the skull. In each of these procedures, a hollow needle is inserted into the face and through one of the openings in the base of the skull. This opening is called the foramen ovale (Figure 3). The tip of the needle is positioned near the ganglion. The needle is used as a pathway to reach the ganglion. Discuss the following medical procedures and possible risks and side effects with your health care provider and health care team. Percutaneous balloon compression of the trigeminal nerve (PBCTN) PBCTN is performed using intravenous (IV) sedation or general anesthesia. PBCTN is usually performedunder general anesthesia. After the needle is inserted, a thin, flexible tube (catheter) with a small balloon on the end is threaded through the needle until it rests against the ganglion. Fluoroscopy is used to guide the needle and catheter through the cheek and the foramen ovale. Flouroscopy is a type of X-ray that produces images of the targeted area on a monitor your surgeon can view. Once the catheter is in place, the balloon is inflated until it compresses and damages the nerves within the gasserian ganglion. As a result, pain sensations are blocked. PBCTN successfully controls pain in most people. Some people experience a return of pain. Pain may return in a few months or in a few years. It is different for each person. A few people find they are not able to have this procedure because they have a foramen ovale that is too small for the procedureto be performed. Most people undergoing PBCTN experience facial numbness. The amount of facial numbness is different for each person. This facial numbness may be temporary or permanent. Many people have nerve damage that causes weakness in the muscles used to chew. This weakness may also be temporary or permanent. Youare able to chew food even with the weakness because the muscle (masseter muscle) on the other side of face is still strong and can close the jaw tightly on both sides. Percutaneous glycerol rhizotomy (PGR) PGR is done while you are sedated using IV sedation; you are awake but drowsy during the procedure. Fluoroscopy is used and the needle is inserted into a small sac of spinal fluid surrounding the trigeminal ganglion and part of the nerve root. This sac is called the trigeminal cistern. When the needle appears to be in the cistern, an X-ray dye is injected through the needle to confirmits location. Then, a small amount of sterile glycerol is injected into the cistern. The glycerol injection damages the trigeminal nerves so sensations of pain are blocked. You are positioned to allow maximum contact of the glycerol with the trigeminal ganglion and must remain in this position for 3 to 4 hours. PGR successfully controls pain associated with trigeminal neuralgia right away in most people. However, the pain may return months to years later. Many people have facial numbness or mild tingling afterward. This is usually temporary. Percutaneous stereotactic radiofrequency thermal rhizotomy (PSR) PSR destroys the nerve cells associated with TN pain. PSR is done while you are awake, although IV sedation is used. Once the needle is in place, an electrode is threaded through the needle until it rests against the nerve root. Fluoroscopy is used to guide the needle and electrode through the cheek and the foramen ovale. Once the electrode is in place, a small electric current is passed through the electrode and into the nerves within the ganglion. The electrode is positioned so you feel numbness or mild tingling. You are again given medicine to make the procedure more comfortable and a stronger electric current is passed through the tip of the electrode. This is done until it is heated to the desired temperature. This damages the nerve cells. You are asked to tell your health care team whether or not the sensation of pain is gone. The procedure is over when you say you cannot feel pain. Pain may return months or years later. PSR successfully controls pain in most people. Of all of the percutaneous procedures, PSR produces the most controllable and predictable damage to the nerve cells. PSR requires that you be awake and able to give feedback during parts of the procedure. A common side effect of PSR is mild to severe facial numbness, which may fade over time. Pain may return months to years later. Surgery Surgery relieves pressure (compression) on the trigeminal nerve. Microvascular decompression (MVD) MVD involves relocating or removing a blood vessel that is in contact with the trigeminal nerve by the nerve from the vessel with a non-dissolvable packing material. MVD is performed using general anesthesia. An incision is made behind the ear on the same side as the face pain, a quarter- sized hole is cut into the skull, and the edge of the brain is lifted to show the trigeminal nerve (Figure 4). If an artery is found to be in contact with the nerve root, it is pulled away from the nerve and the non-dissolvable packing material is placed between the nerve and the artery. If a vein is compressing the trigeminal nerve, it is usually removed. If no blood vessels are compressing the trigeminal nerve, the lower third to two-thirds of the nerve are cut, depending on the location of the facial pain. MVD is successful in getting rid of or reducing pain in most people, but the pain may return. If thepain comes back, MVD may sometimes be repeated if needed, or a different treatment may be recommended. Although MVD has the highest long-term success rate, it also holds the most risk. Most people have lasting benefits from MVD. Risks include a chance of decreased hearing, major facial weakness, a stroke or . However, these complications are rare. Uncommon temporary side effects are mild facial num bness, facial weakness, and double vision. Focused radiation therapy Focused radiation therapy (such as Gamma-knifeTM) is a non-invasive treatment for TN. The procedure does not require a surgical incision or the use of needles. It delivers a single high dose of radiation to the root of the trigeminal nerve. The procedure is sometimes called radiosurgery. The radiation damages the trigeminal nerve and should get rid of the pain. The pain may only be lessened or it could be gone completely. However, the pain may return later just as with percutaneous procedures or surgery. Focused radiation therapy is painless and is usually done without anesthesia. Risks include losing your hearing and the feeling (sensation) in your face, which may be temporary or permanent. This procedure is successful in eliminating pain most of the time; however, the pain may return. Focused radiation therapy is more appropriate for those who have milder or less frequent episodes oftrigeminal neuralgia. People with severe or frequent pain are generally unwilling to wait to see if focused radiation therapy is effective. Discuss focused radiation therapy and all procedures and surgeries with your health care team to decide what may work best for you. Conclusion Medication can usually be used to control trigeminal neuralgia pain. However, some people may stop responding to medication or may have side effects. In these cases, there are a number of procedures that can be done. Ask your health care team to help you decide which treatment is best for you. If you have questions or concerns about your condition or this information, talk with your health care provider. This material is for your education and information only. This content does not replace medical advice, diagnosis or treatment. New medical research may change this information. If you have questions about a medical condition, always talk with your health care provider. ? 2007 [facility] ([facility]). All rights reserved. [id number] ENTICE PATTERN MAKER documented in this encounter Consult Notes Meghna Valdez M.D., M.P.H. - 04/11/2020 10:30 AM CST SUBJECTIVE CHIEF COMPLAINT / REASON FOR VISIT Yaz Adames is a 64 y.o. female who presents for evaluation of Trigeminal neuralgia - left (Ref. ). HISTORY OF PRESENT ILLNESS I am redictating this note for the 3rd time as [facility] and [employer] have continually deleted or lost this dictation. This 4th iteration will necessarily be brief in attempt not to lose a 4th note. It this patient has a approximately one year history of one year she has a burning pain just below the left eye that is both itchy and burning approximately 6/10. Pregabalin has not been helpful and a trial of carbamazepine 200 mg b.i.d. root resulted in ataxia and cognitive impairment. She says she only took that for about three days, no lower dose was tried. Neuro imaging was obtained at [facility] and I am able to see the report and it declares no ab normalities in the 5th cranial nerve. She has a history of shingles and has not had a vaccine. She believes the shingles were on her torsoand she denies any rash on her face. No past medical history on file. Past [...] facet joint(s). MEDICATIONS: Current Outpatient Medications: ??? albuterol inhaler, Inhale., Disp: , Rfl: ??? alcaftadine 0.25 % drops, INT 1 DROP IN OU D, Disp: , Rfl: ??? amoxicillin (AMOXIL) 500 mg capsule, Take 500 mg by mouth., Disp: , Rfl: ??? CALCIUM CARBONATE/VITAMIN D3 (CALCIUM WITH VITAMIN D ORAL), Take 1 tablet by mouth 3 (three) times a day., Disp: , Rfl: ??? co-enzyme Q-10 (CO Q-10) 100 mg [...] mg tablet, , Disp: , Rfl: ??? hydrocortisone (ANUSOL-HC) 25 mg suppository, Insert 25 mg into the rectum., Disp: , Rfl: ??? ibuprofen (ADVIL,MOTRIN) 800 [...] , Disp: , Rfl: ??? MICROLET LANCET mis, 2 (two) times a day. for testing, Disp: , Rfl: 3 ??? multivitamin tablet, multivitamin, Disp: , Rfl: ??? nystatin (for_MYCOSTATIN) 100,000 unit/gram cream, , Disp: , Rfl: ??? pramipexole (MIRAPEX) 0.125 mg tablet, Take 2 tablets by mouth daily., Disp: , Rfl: ??? prednisoLONE acetate (PRED FORTE) 1 % ophthalmic suspension, SHAKE LQ AND INT 1 GTT IN OS QID FOR 7 DAYS THEN STOP, Disp: , Rfl: ??? pregabalin (LYRICA) 100 [...] tablets at bedtime, Disp: , Rfl: ??? triamcinolone (for_KENALOG) 0.1 % cream, , Disp: , Rfl: ??? turmeric root extract 500 mg capsule, Take by mouth daily., Disp: , Rfl: ??? valACYclovir (VALTREX) 1000 mg tablet, Take 1 tablet by mouth as needed., Disp: , Rfl: ??? venlafaxine XR (EFFEXOR XR) 150 mg 24 hr capsule, Take 1 capsule by mouth daily., Disp: , Rfl: ??? VOLTAREN 1 % gel, , Disp: , Rfl: ??? acyclovir (for_ZOVIRAX) 200 mg capsule, Take by mouth., Disp: , Rfl: ??? carBAMazepine (CARBATROL) 100 mg 12 hr capsule, Take 1 capsule (100 mg total) by mouth 2 (two) times a day. Please start at 100 mg at night for the first week., Disp: 60 capsule, Rfl: 11 ??? pregabalin (LYRICA) 50 mg capsule, Take [...] bedtime. 2 tablets, Disp: , Rfl: ??? UNABLE TO FIND, lidocaine/ketamine/ketoprofen 2.48 g-5.525 g-5.525 g/114 g topical cream See Instructions, apply twice daily, 60 gm, 5 Refill(s), Disp: , Rfl: ??? UNABLE TO FIND, Lidoderm Compound See Instructions, add 5% gabapentin to 30gm Lidoderm, 30 gm, 5Refill(s), Disp: , Rfl: ALLERGY: Allergies Allergen Reactions [...] file Gets together: Not on file Attends zoroastrian service: Not on file Active member of [...] ??? Not on file @ OBJECTIVE Vitals: 04/11/20 1023 BP: 126/66 BP Location: Left arm Patient Position: Sitting Cuff Size: Large Pulse: 90 Weight: 120 kg PHYSICAL EXAM COGNITION: Alert and oriented x 4. CRANIAL NERVES: photographer apprentice II-XII intact and symmetric. She has pain when I touch below the eye near the nose. MOTOR: Full strength throughout the upper and lower extremities bilaterally both proximally and distally. Normal tone. No pronator drift. No tremor. REFLEXES: she has diminished reflexes the knee and absent at the ankles SENSORY: normal sensation totouch CEREBELLAR: ARMs minus one in the upper extremities bilaterally. GAIT: use a walker Impression: Encounter Diagnoses Name Primary? Neuralgia Trigeminal Yes This patient certainly has trigeminal neuralgia involving the ophthalmic branch. I am going to try acarbamazepine 100 mg q.h.s. and then in a week go to b.i.d. in an attempt to try to get her to tolerate the carbamazepine. Failing this I think I will have to refer to neurosurgery. A rahul discussion about this. I answered all of her questions. Total time fall with this patient was over 80 minutes. Meghna Valdez M.D., M.P.H. ENTICE PATTERN MAKER documented in this encounter Plan of Treatment Scheduled Referrals Name Type Priority Associated Diagnoses Order [facility] Neurology office Outpatient Referral Routine Expe cted: visit (clinic) 07/10/2020 (Approximate), Expires: 04/11/2023 documented as of this encounter Visit Diagnoses Diagnosis Neuralgia Trigeminal - Primary documented in this encounter Additional Health Concerns Assessment Noted Time PHQ-9 Depression Total Score: 5 04/29/2016 10:10 AM CS T documented as of this encounter
--- OUTSIDE RECORDS SUMMARY | 2022-01-12 12:34 | XMS_ITS | Encounter Summary ---
:1955 Author Organization [facility] Address [address] [place] [address] Care Team Providers Name Role Phone Unavailable Primary Care Provider Unavailable Encounter Details Date Type Department Care Team Description 06/06/2020 Clinical Communication Department of Neurology Meghna Valdez, in [facility] karthik Pruett, M.P.H. [address] [place] [address] [address] [place], [place] [id number] Social History Tobacco Use Types Packs/Day [...] or relatives? How often do you attend yarsani or Never 2021 roman catholic services? Do you belong to any clubs or Yes 12/12/2021 organizations such as yarsani groups, unions, fraternal or athletic groups, or [...] place to sleep or slept in a half-way (including now)? Sex Assigned at Date Recorded Female 07/21/2017 2:58 PM CDT documented as of this encounter Miscellaneous Notes Telephone Encounter - Jewels Gutierrez C.M.A. - 06/09/2020 9:02 AM CDT Images from the original note were not included. Meghna Valdez M.D., M.P.H. You 1 hour ago (7:35 AM) Let me see her next week and we can decide whether she needs a referral to [facility] Spoke with patient and she is scheduled 06/[address] Valdez. Telephone Encounter - Jewels Gutierrez C.M.A. - 06/08/2020 3:10 PM CDT Spoke with patient and she tried the increased dose of Carbamazepine 400 mg twice a couple more days. Patient states that the pain is not significantly better. At time of call, pain was 4/10, but patient stated the pain goes up and down and goes to 6-8/10 during the day. She stated she also is having pain on her L jaw above trigeminal nerve. Telephone Encounter - Nathalie Sandoval - 06/08/2020 1:20 PM CDT Reason for Communication: Patient is calling in stating she is returning phone call to nursing. Unable to reach nursing at the moment. Current Can Nursing/Provider leave a detailed message: Action Needed: Please review and advise. Name of Medication (if relevant): Telephone Encounter - Capri Jung L.P.N. - 06/06/2020 2:57 PM CDT PSUBJECTIVE CHIEF COMPLAINT / REASON FOR CALL No chief complaint on file. PLAN The following information was provided: Patient is to give the higher dose of Carbamazepine a couple more days to see if pain improves. Information/Education: patient/caller able to teach back The following references were used: provider Dr. Valdez Telephone Encounter - Capri Jung L.P.N. - 06/06/2020 1:46 PM CDT Patient with severe right side jaw pain extending up to ear and teeth. Pain scale today is at a 8. Patient was seen at the [place] [facility] last Friday. ER increased Carbamazepine to 400 mg twice a day and was given one Percocet. Stated she called her primary doctor who gave her a script for Percocet and was instructed not to take no more that two a day. Patient does not like to take this since she is a recovering acholic. Also stated it has not helped the pain. Increase in Carbamazepine and Percocet has given her no relief. Telephone Encounter - Viji Wagner - 06/06/2020 10:26 AM CDT Reason for Communication: Patient called asking to speak to Dr. Valdez or his nurse regarding severe pains she is having Current Can Nursing/Provider leave a detailed message?: yes Did the patient refuse triage through Nurse line? (for symptom based concerns): na Action Needed: Please advise Name of Medication (if relevant): documented in this encounter Plan of Treatment Not on filedocumented as of this encounter Visit Diagnoses Not on filedocumented in this encounter Additional Health Concerns Assessment Noted Time PHQ-9 Depression Total Score: 5 04/29/2016 10:10 AM CS T documented as of this encounter
--- OUTSIDE RECORDS SUMMARY | 2022-01-12 12:34 | XMS_ITS | Encounter Summary ---
:1955 Author Organization [facility] Address [address] [place] [address] Care Team Providers Name Role Phone Unavailable Primary Care Provider Unavailable Reason for Visit Reason Comments Med Refill Encounter Details Date Type Department Care Team Description 04/12/2020 Refill Department of Neurology in Meghna Valdez M.D., Med Refill [place], [place] [facility] [address] [facility] [address] [place] [address] [place] [phone] (Wo rk) Social History Tobacco Use Types [...] or relatives? How often do you attend congregational or Never 2021 scientology services? Do you belong to any clubs or Yes 12/12/2021 organizations such as congregational groups, unions, fraternal or athletic groups, or [...] place to sleep or slept in a group home (including now)? Sex Assigned at Date Recorded Female 07/21/2017 2:58 PM CDT documented as of this encounter Miscellaneous Notes Telephone Encounter - Emi Wood - 04/12/2020 12:05 PM CST Patient requesting 90 day supply. 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
--- OUTSIDE RECORDS SUMMARY | 2022-01-12 12:34 | XMS_ITS | Encounter Summary ---
:1955 Author Organization [facility] Address [address] [place] [phone] Care Team Providers Name Role Phone Unavailable Primary Care Provider Unavailable Reason for Referral Outpatient (Routine) - Closed Specialty Diagnoses / Procedures Referred By Contact Refer red To Contact Spine Lia Junior APRN, C.N.PCandy, [place] [facility] M.S.N. [address] [place] [address] Referral ID Status Reason Start Date Expiration Date Visits Requ ested Visits Authorized [id number] Closed 11/12/2021 11/11/2024 1 1 RI/CAT/PET Scan (Routine) - Closed Specialty Diagnoses / Procedures Referred By Contact Refer red To Contact Radiology Diagnoses Stenosis Spinal Cervical Lia Junior APRN, [place] Procedures MR Cervical Spine without IV Contrast C.N.P., M.S.N. [address] [place] [phone] Referral ID Status Reason Start Date Expiration Date Visits Requ ested Visits Authorized [id number] Closed 11/12/2021 11/12/2022 1 1 Reason for Visit Outpatient (Routine) - Closed Specialty Diagnoses / Procedures Referred By Contact Refer red To Contact Spine Diagnoses Radiculopathy Lumbar Radiculopathy Cervical Anoop Emery M.D. [facility] [address] [place] [address] Referral ID Status Reason Start Date Expiration Date Visits Requ ested Visits Authorized [id number] Closed 05/22/2021 05/22/2022 1 1 Encounter Details Date Type Department Care Team Description 11/12/2021 Comprehensive Visit Department of Spine Precious Garrett Spinal Cervical (Primary Dx); in [place] M.D. Radiculopathy Cervical; [place] [address] [facility] Spinal Stenosis Lumbar Region Without Ne urogenic Claudication [address] [place] [phone] Social History Tobacco Use Types Packs/Day Years [...] or relatives? How often do you attend hoahaoism or Never 2021 orthodox services? Do you belong to any clubs or Yes 12/12/2021 organizations such as hoahaoism groups, unions, fraternal or athletic groups, or [...] place to sleep or slept in a custodial (including now)? Education Answer Date Recorded What is the highest level of school Master's degree (e.g., Jose Roberto Loza, , 07/15/2020 you have completed or the highest [employer], MEd, GYMNASTICS COACH, ODILIA) degree you have received? Sex Assigned at Date Recorded Female 07/21/2017 2:58 PM CDT documented as of this encounter Last Filed Vital Signs Vital Sign Reading Time Taken Comments Blood Pressure 149/73 11/12/2021 8:49 AM CDT Pulse 84 11/12/2021 8:49 AM CDT Temperature - - Respiratory Rate - - Oxygen Saturation - - Inhaled Oxygen Concentration - - Weight 127 kg (279 lb 14 oz) 11/12/2021 8:49 AM CDT Height 172 cm (5' 7.72) 11/12/2021 8:49 AM CDT stated Body Mass Index 42.91 11/12/2021 8:49 AM CDT documented in this encounter Consult Notes Lia Junior, ALESIA, C.N.P., M.S.N. - 11/12/2021 9:00 AM CDT SUBJECTIVE CHIEF COMPLAINT: Neck and low back pain HISTORY OF PRESENT ILLNESS Yaz Adames is a 66 y.o. female who [facility] with low back painand neck pain. The patient has a history of fibromyalgia, medial epicondylitis, hypertension, Diabetes Mellitus type 2, diabetic neuropathy, bilateral plantar fasciitis, pulmonary embolism, pelvic floor dysfunction, osteoarthritis, Mitral valve prolapse, Bilateral TKAs, and discectomy 10-15 years ago.She presents today with ongoing neck and back pain for twenty years that has progressively gotten worse over time. Currently, she feels like the pain in her neck and back has gotten more intense over the past two weeks. She describes her neck and right shoulder blade pain as a deep ache, she does have numbness and tingling into her lateral right arm to the middle of her forearm, but not into her hands. She rates this pain a 5/10 at baseline and can reach 7/10 when it is at its worst. She feels like there is nothing in particular that makes this pain worse, it just comes on intermittently. There is really nothingshe can do to alleviate the neck and arm pain when the pain sets in. She also has low back pain without leg symptoms. She describes this low back pain as a deep ache and at times it will go into her but tocks, but not very often. She rates this pain a 5/10 at baseline and can also reach a 7/10 when it is at its worst. Sitting up right, standing, and walking make her low back pain worse. She can only stand for about 1-2 minutes and walk for 2-3 blocks before she has to sit down due to low back pain. Being in a recliner, leaning forward, and lying down with pillows under her head and knees makes her back pain better. 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 Acupuncture was not helpful, and she has recently stopped going to a chiropractor. She states the best treatment for her is distraction.She finds herself having no pain when she is working with her sponsee with AA. Imaging: Cervical MRI from 03/08/2021, Lumbar MRI 01/25/2021, and lumbar x-ray from 01/15/2021 was reviewed and went over images with patient. Cervical MRI shows multilevel central stenosis at C3-4, C4-5, C5-6, and C6-7. Lumbar MRI shows multilevel central stenosis at L2-3, L3-4, and L4-5. Lumbar x-ray shows multilevel degenerative disc disease, lumbar scoliosis, and multilevel facet arthropathy. The following portions of the patient's history were reviewed as appropriate: allergies, current medications, family history, medical history, social history, surgical history and problem list. Patientis a recovering alcoholic for 36 years and attends AA meetings twice a day. 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 REVIEW OF SYSTEMS I have briefly reviewed the Review of Systems as noted on the Health history form. I am only responding to those symptoms which are directly relevant to the specific indication for my consultation. I recommend that the patient follow up with their primary or referring provider to pursue any other symptoms which may be of concern. Constitutional: Positive for fatigue and weight gain of more than 10 pounds. Eyes: Positive for sudden loss of vision. ENT: Positive for sinus congestion. Respiratory: Positive for coughing up mucus (phlegm), dry cough and shortness of breath. Cardiovascular: Positive for shortness of breath when lying flat. Gastrointestinal: Positive for abdominal (belly) pain or cramping and constipation. Genitourinary: Positive for incontinence, difficulty urinating, urgency and frequent urination. Musculoskeletal: Positive for pain or stiffness in the joints and back pain. Neurological: Positive for numbness or shooting pain in hands, arms, legs, or feet, loss of balance or tendency to fall easily and headaches. The following systems were negative: Skin, Hematologic, Psychiatric OBJECTIVE GENERAL: Well-developed, well-nourished individual in no acute distress. MENTAL: Appropriate mood and affect. Grossly oriented with coherent speech NEUROLOGIC: Reflexes: Bilateral upper and lower extremity muscle stretch reflexes are physiologic and symmetric.Left knee reflex weaker than right. Plantar responses are down going. No Dos Santos's sign. Sensation: No loss of sensation is noted in the upper or lower extremities. Except numbness and tingling in bilateral feet due to peripheral neuropathy. Coordination: Rapid alternating movement is normal in the upper and lower extremities. MUSCULOSKELETAL: Gait: Station is unsteady. Gait is unsteady. Balance: Tandem gait unable to perform due to unsteadiness. Strength: Bilateral upper and lower extremity strength is normal and symmetric without atrophy or tone abnormality. Toe walking normal. Unable to heel walk due to balance/unsteadiness. Palpation: Inspection and palpation of the spine and extremities multiple areas of tenderness noted throughout the spine, shoulders, and hips. Range Of Motion: No gross spine deformity noted. Peripheral joint ROM is full and pain-free without obvious instability or laxity in all four extremities. Spine: No gross axial skeletal deformities. Decreased range of motion in neck and low back, pain present. Provocative Maneuvers: Shoulder, hip, and sacroiliac provocative maneuvers are negative. Straight Leg Raise: Negative for radicular pain. Foraminal Compression: No referred or radicular pain. SKIN: Negative for erythema, breakdown, or concerning lesions in affected area. LUNGS: Breathing is comfortable and regular. No dyspnea. ASSESSMENT / PLAN #1 Multilevel cervical spinal stenosis at C3 4, C4-5, C5-6, and C6-7 #2 Multilevel lumbar spinal stenosis at L2-3, L3-4, and L4-5 #3 Multilevel lumbar degenerative disc disease #4 Multilevel lumbar facet arthropathy PLAN: Yaz Adames and I discussed the following plan: We are going to order a new cervical spine MRI to help determine if the cervical spinal stenosis has worsened over time. She will meet with Orthopedic surgery on 11/14/2021 to discuss possible surgical options. She will follow-up with Dr. Garrett via video visit after her new cervical MRI and surgical consult are completed. At that time, we can discuss further options if surgery is not an option. All questions were answered and she agrees with this plan. Associated attestation - Amor Garrett M.D. - 11/12/2021 7:40 PM CDT I saw and evaluated the patient, participating in the posadas portions of the service. I reviewed the note. I agree with the findings and plan. Mrs. Adames is a 66-year-old woman who is seen today with both neck and low back pain. Symptoms have been present for at least 20 years but have progressively worsened over time. There is someaching into the right shoulder and numbness and tingling in the right arm to the forearm. It does not appear there is focal weakness in the upper extremity. She also has low back pain with a deep ache into her buttocks. Her back pain is worse with prolonged sitting, standing and walking. There is improvement with being in a recliner or leaning forward. There has been no lower extremity weakness or numbness. She had a lumbar laminectomy in the past. On examination, she has difficulty transitioning to standing. She is above ideal bodyweight. Gait isunsteady and tandem is difficult. Manual muscle testing is normal in upper lower extremities. She isable to rise up on the toes and rock back on the heels. Reflexes are symmetric in the upper extremities. The left reflex is reduced. Sensory exam shows less sensitivity in the feet. She has reduced cervical and lumbar motion with increased pain on extension. Cervical MRI from 03/08/2021 shows spondylotic changes with central canal stenosis at C4-5, C5-6 andC6-7. Is difficult to tell if there is abnormal signal in the spinal cord due to motion. Lumbar MRI from 01/25/2021 shows central canal stenosis at multiple levels from L1-2 2 L4-5. Impression: #1 Cervical stenosis #2 Lumbar stenosis There is a significant amount of axial symptoms in both the neck and lower back. However, she has paresthesias into the right arm and some gait difficulties. The cervical stenosis is quite prominent and I would recommend an updated cervical MRI prior to her surgical consultation. As far as the lower back, she does not describe much in the way of symptoms his suggest neurogenic claudication. However there is some discomfort into the buttocks and she does better with flexing forward. We could considerlumbar epidural steroid injection at some point and will have her follow-up virtually by video. PPE use information for possible contact monitoring: PPE used during visit: Provider was wearing a mask throughout entire session. Patient was wearing a mask throughout entire session. Additional person present and PPE use: Lia Surgical mask. Electronically signed by: Amor Garrett M.D. 11/12/21 7:27 PM CDT documented in this encounter Plan of Treatment Scheduled Referrals Name Type Priority Associated Diagnoses Order [facility] Outpatient Referral Routine Expected : visit (clinic) 11/12/2021 (Approximate), Expires: 02/12/2023 documented as of this encounter Results MR Cervical Spine without [...] be helpful in further evaluation, as indicated. Jaswinder Whitmore APRNNAman., M.S.N. IMG MRI PROCEDURE S documented in this encounter Visit Diagnoses Diagnosis Stenosis Spinal Cervical - Primary Radiculopathy Cervical Spinal Stenosis Lumbar Region Without Ne urogenic Claudication Stenosis Spinal Cervical documented in this encounter Additional Health Concerns Assessment Noted Time PHQ-9 Depression Total Score: 5 04/29/2016 10:10 AM CS T documented as of this encounter
--- OUTSIDE RECORDS SUMMARY | 2022-01-12 12:34 | XMS_ITS | Encounter Summary ---
:1955 Author Organization [facility] Address [address] [place] [address] Care Team Providers Name Role Phone Unavailable Primary Care Provider Unavailable Reason for Visit Reason Comments COVID Inquiry Encounter Details Date Type Department Care Team Description 06/19/2020 Clinical Communication Division of Pain Lacey Garcia in COVID Inquiry Medicine in David Goodman, M.S. [address] [place] [phone] Social History Tobacco Use Types Packs/Day Years [...] or relatives? How often do you attend synagogue or Never 2021 sabianist services? Do you belong to any clubs or Yes 12/12/2021 organizations such as synagogue groups, unions, fraternal or athletic groups, or [...] this encounter Miscellaneous Notes Telephone Encounter - Sintia Butler - 06/19/2020 8:43 AM CDT What is the purpose of the call?: Standard Appointment Process Standard Appointment Process Have you tested positive for COVID-19 in the last 20 days OR do you have a pending COVID-19 test because you had symptoms?: No, neither apply What region is the appointment being requested?: Less than 20 days [facility], [facility] or [facility] In the past 14 days are any of the following symptoms new to you and not related to an existing health condition?: No symptoms noted In the past 14 days have you had close contact* with a person who has a LABORATORY CONFIRMED case ofCOVID-19?: No exposure noted, follow appt process (End Screening) Testing Recommendation Endpoint Is testing recommended? : Not recommended to test Plan: Endpoint recommendation: Followed regional [facility] *Reminder if sending patient for testing in [facility] or [facility], route encounter to the correct testing pool. documented in this encounter Plan of Treatment Not on filedocumented as of this encounter Visit Diagnoses Not on filedocumented in this encounter Additional Health Concerns Assessment Noted Time PHQ-9 Depression Total Score: 5 04/29/2016 10:10 AM CS T documented as of this encounter
--- OUTSIDE RECORDS SUMMARY | 2022-01-12 12:34 | XMS_ITS | Encounter Summary ---
:1955 Author Organization [facility] Address [address] [place] [address] Care Team Providers Name Role Phone Unavailable Primary Care Provider Unavailable Reason for Referral Outpatient (Routine) - Closed Specialty Diagnoses / Procedures Referred By Contact Refer red To Contact Diagnoses Pain Eye Left Mychal Garcia, [facility] Procedures PM Nerve Block injection Other; left infraorbital nerve; US-Guided; Left Rayna San, M.S. [address] [place] [address] Referral ID Status Reason Start Date Expiration Date Visits Requ ested Visits Authorized [id number] Closed 06/23/2020 06/23/2021 1 1 Reason for Visit Outpatient (Routine) - Closed Specialty Diagnoses / Procedures Referred By Contact Refer red To Contact Pain Medicine Diagnoses Neuralgia Trigeminal Meghna Valdez M.D., [facility] [address] [address] Referral ID Status Reason Start Date Expiration Date Visits V isits Requested Authorized [id number] Closed Specialty 06/13/2020 06/13/2021 1 1 Services Required Encounter Details Date Type Department Care Team Description 06/23/2020 Comprehensive Visit Division of Pain Mychal Garcia Pain Neuropathic (Primary Dx); Medicine in David Goodman, M.S. Pain Eye Left; [place], [facility] [address] [facility] Pain Low Back; [place], [place] Diabetes Mellitus Type 2 Wit h Diabetic Neuropathy (HCC); [address] [facility] [address] Osteoarthritis; [place], [place] [phone] Neuralgia Trig eminal [id number] (Work) [phone] Social History Tobacco Use Types Packs/Day Years [...] do you attend gnosticist or Never 2021 anabaptist services? Do you belong to any clubs [...] or slept in a assisted (including now)? Sex Assigned at Date Recorded Female 07/21/2017 2:58 PM CDT documented as of this encounter Consult Notes Mychal Garcia P.A.-C., M.S. - 06/23/2020 11:00 AM CDT SUBJECTIVE CHIEF COMPLAINT / REASON FOR VISIT Yaz HaLucianoNerissa is a 65 y.o. female who was referred to Pain Medicine by Meghna Valdez M.D., M.P.H[facility] for left eye and right face pain. HISTORY OF PRESENT ILLNESS Mrs. Adames pleasant 65 year old female. She is accompanied by her daughter here. She is referred to the Pain Clinic by Dr. Valdez for face pain. Additional details history can be found in the recent documentation per the referring provider. Briefly, she has greater than one year history of vincent ropathic pain below the left eye and right jaw pain. Of note, she has diffuse body pain but she has a focus on the left eye today. Currently, she describes burning and itching under the left eye. This is rated at a six on a 10 point scale. She has trialed numerous medication options with no significant improvement. She was told that she might have trigeminal neuralgia is looking for treatment options today. She has received several MRI scans of the face and brain. Her recent MRI of the face was from 06/21/2020. This study was specifically for trigeminal neuralgia protocol. There was nothing to account fortrigeminal neuralgia. 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 Her current eye pain is itching and burning. A portion of this pain extends retro-orbitally. She denies any headaches or any migraines. She will occasionally see floaters. She does not endorse photophobia. The patient denies any recent fever, chills, night sweats, recent antibiotic use, or any other symptoms of ongoing infections. The patient has not noticed any new focal weakness to the upper or lower extremities. There are no other worrisome neurological red flag features present today. The patient denies any allergies to local anesthetic, corticosteroid or contrast dye. She is not taking any blood thinners. Appropriate transportation has been arranged. Current Outpatient Medications Medication Sig Dispense Refill ??? acyclovir (for_ZOVIRAX) 200 mg capsule Take by mouth as needed. ??? albuterol inhaler Inhale. ??? amoxicillin (AMOXIL) 500 mg capsule Take 500 mg by mouth. ??? CALCIUM CARBONATE/VITAMIN D3 (CALCIUM WITH VITAMIN D ORAL) Take 1 tablet by mouth 3 (three) times a day. ??? carBAMazepine (CARBATROL) 200 mg 12 hr capsule Take 1 capsule (200 mg total) by mouth 2 (two) times a day. 180 capsule 3 ??? co-enzyme Q-10 (CO Q-10) 100 mg capsule Take 1 capsule by mouth daily. ??? CONTOUR NEXT LEV 2 CONTROL JONNY solution U UTD 0 ??? CONTOUR NEXT STRIPS strips 2 (two) times a day. for testing 3 ??? cranberry 400 mg capsule Take by mouth daily. ??? fluticasone propionate (FLONASE) 50 mcg/actuation nasal spray Administer into nostril(s). ??? FSH/FLX/PRIM/CUR/BOR/OM3,6,9 5 (OMEGA 3-6-9 FATTY ACIDS ORAL) Take 1 capsule by mouth daily. ??? ginkgo biloba 40 mg tablet Take 120 mg by mouth. ??? hydroCHLOROthiazide (for_HYDRODIURIL) 25 mg tablet ??? hydrocortisone (ANUSOL-HC) 25 mg suppository Insert 25 mg into the rectum. ??? ibuprofen (ADVIL,MOTRIN) 800 mg tablet Take 800 mg by mouth as needed. ??? IRON,CARBONYL/ASCORBIC ACID (VITRON-C ORAL) Take 1 tablet by mouth 2 (two) times a day. ??? loratadine (for_CLARITIN) 10 mg tablet Take 1 tablet by mouth daily. ??? mecobal-levomefolat Ca-B6 phos 3-35-2 mg tablet TAKE 1 TABLET BY MOUTH TWICE DAILY ??? metFORMIN (for_GLUCOPHAGE) 500 mg tablet ??? MICROLET LANCET misc 2 (two) times a day. for testing 3 ??? multivitamin tablet multivitamin ??? nystatin (for_MYCOSTATIN) 100,000 unit/gram cream ??? oxyCODONE-acetaminophen (PERCOCET) 5-325 mg per tablet Take 1-2 tablets by mouth 3 (three) timesa day as needed. ??? pramipexole (MIRAPEX) 0.125 mg tablet Take 2 tablets by mouth daily. ??? pregabalin (LYRICA) 100 mg capsule Take 100 mg by mouth daily. Taking in the afternoon ??? pregabalin (LYRICA) 150 mg capsule Take 1 capsule (150 mg total) by mouth 2 (two) times a day. 60 capsule 5 ??? traZODone (DESYREL) 100 mg tablet Take 100 mg by mouth daily. Taking 2 tablets at bedtime ??? turmeric root extract 500 mg capsule Take by mouth daily. ??? valACYclovir (VALTREX) 500 mg tablet ??? venlafaxine XR (EFFEXOR XR) 150 mg 24 hr capsule Take 1 capsule by mouth daily. ??? venlafaxine XR (EFFEXOR-XR) 75 mg 24 hr capsule Take 75 mg by mouth daily. Take with 150 mg = 225 mg total daily. ??? VOLTAREN 1 % gel ??? alcaftadine 0.25 % drops INT 1 DROP IN OU D No current facility-administered medications for this visit. Allergies: Food allergy formula and Mupirocin The following portions of the patient's history were reviewed and updated as appropriate: family history. All systems were reviewed and found to be negative except as noted. REVIEW OF SYSTEMS REVIEW OF SYSTEMS OBJECTIVE PHYSICAL EXAM Physical Exam General Appearance: No acute distress noted and well nourished. Greater than ideal Body Mass. Significant pain behaviors were displayed throughout the visit today. Accompanied by her daughter. Cardiovascular: Peripheral vascular status intact without signs of limb ischemia Eyes: Pupils symmetric, 3-4 mm. Intermittent tearing in the left eye. Head: Normocephalic, atraumatic. Pulmonary: Respirations non-labored with no signs of respiratory compromise Integumentary: Dry and intact to affected site. Neuro/Mental: Alert, oriented to person, place and time, speech clear and coherent and answers questions appropriately Musculoskeletal: Gait: Nonantalgic. Prefers use of walker to ambulate [facility]. ASSESSMENT / PLAN ASSESSMENT / PLAN #1 Pain Neuropathic #2 Pain Eye Left #3 Pain Low Back #4 Diabetes Mellitus Type 2 With Diabetic Neuropathy (HCC) #5 Osteoarthritis #6 Neuralgia Trigeminal Mrs. Multani is a 65-year-old female with atypical face pain. She does not have any structural anomalies on her MRI to support a diagnosis of trigeminal neuralgia. Her history does not support this either. It is unclear why she is having her neuropathic features in the left eye. Her right jaw pain is improving following her tooth extraction. There was some TMJ degeneration, but I think this is asymptomatic at this point. We discussed a couple of options for her eye discomfort. These are outlined below. PLAN 1. Trial gvsr-rqy-wnevblv breku-btttcx-hbax 600 mg one hour before bed. 2. Consider increasing Lyrica up to 200 mg three times a day. This can be accomplished in 50 mg increments in divided doses every three days. 3. Interventions: I have placed an order for an ultrasound-guided left infraorbital nerve block. 4. Surgery: Not indicated. 5. Wellness: She has completed our PRC program and aftercare group. No formal follow-up was provided. She will stay in touch via the portal. PATIENT EDUCATION Ready to learn, no apparent learning barriers were identified; learning preferences include listening. Explained diagnosis and treatment plan; patient expressed understanding of the content. The above content was discussed with Dr. Nguyen. documented in this encounter Plan of Treatment Not on filedocumented as of this encounter Results PM Nerve Block injection [...] Tho Knight M.D. Authorized by: Mychal Garcia P.A.- C., M.S. Care team members present 1. Alon [...] structures. ?? Images have been archived in [facility]: click the 'Dept Filter' button in [employer], then the 'Clear (Show All)' button, then [...] fellow participated in the procedure, and the bridal consultant was present for the entire procedure. OPERATIVE NOTE INFORMATION Specimens: 0 Drains: 0 Estimated blood loss: 0 Implants: 0 Mychal Garcia P.A.-C. 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
--- OUTSIDE RECORDS SUMMARY | 2022-01-12 12:34 | XMS_ITS | Encounter Summary ---
:1955 Author Organization [facility] Address [address] [place] [address] Care Team Providers Name Role Phone Unavailable Primary Care Provider Unavailable Reason for Referral Outpatient (Routine) - Closed Specialty Diagnoses / Procedures Referred By Contact Refer red To Contact Vascular Medicine Diagnoses Preoperative Exam Buster Herrera [place] [facility] M.D. [address] [place] [phone] Referral ID Status Reason Start Date Expiration Date Visits Requ ested Visits Authorized [id number] Closed 11/14/2021 11/14/2022 1 1 Outpatient (Routine) - Authorized Specialty Diagnoses / Procedures Referred By Contact Refer red To Contact Social Work Diagnoses Preoperative Exam Buster Herrera M.D. [address] [phone] Referral ID Status Reason Start Date Expiration Date Visits V isits Requested Authorized [id number] Authorized 11/14/2021 11/14/2022 1 1 Outpatient (Routine) - Closed Specialty Diagnoses / Procedures Referred By Contact Refer red To Contact Anesthesiology Diagnoses Preoperative Exam Buster Herrera M.D. [address] [phone] Referral ID Status Reason Start Date Expiration Date Visits Requ ested Visits Authorized [id number] Closed 11/14/2021 11/14/2022 1 1 Outpatient (Routine) - Closed Specialty Diagnoses / Procedures Referred By Contact Refer red To Contact Orthopedic Surgery Buster Herrera [facility] [place] [address] [place] [address] Referral ID Status Reason Start Date Expiration Date Visits Requ ested Visits Authorized [id number] Closed 11/14/2021 11/13/2024 1 1 MRI/CAT/PET Scan (Routine) - Closed Specialty Diagnoses / Procedures Referred By Contact Refer red To Contact Radiology Diagnoses Stenosis Spinal Cervical Buster Herrera M.D. [facility] Procedures CT Cervical Spine without IV Contrast [address] [place], [place] [phone] Referral ID Status Reason Start Date Expiration Date Visits Requ ested Visits Authorized [id number] Closed 11/14/2021 11/14/2022 1 1 Outpatient (Routine) - Closed Specialty Diagnoses / Procedures Referred By Contact Refer red To Contact Diagnoses Preoperative Exam Buster Herrera M.D. [facility] Procedures DX Cervical Spine 4-5 Views [address] [place], [place] [address] Referral ID Status Reason Start Date Expiration Date Visits Requ ested Visits Authorized [id number] Closed 11/14/2021 11/14/2022 1 1 Outpatient (Routine) - Closed Specialty Diagnoses / Procedures Referred By Contact Refer red To Contact Diagnoses Preoperative Exam Buster Herrera M.D. [place] [facility] Procedures BMD Bone Density Spine Hips [address] [place] [address] Referral ID Status Reason Start Date Expiration Date Visits Requ ested Visits Authorized [id number] Closed 11/14/2021 11/14/2022 1 1 Reason for Visit Reason Comments Pain Outpatient (Routine) - Closed Specialty Diagnoses / Procedures Referred By Contact Refer red To Contact Spine Diagnoses Radiculopathy Lumbar Radiculopathy Cervical Anoop Emery M.D. [place] [facility] [address] [place] [address] Referral ID Status Reason Start Date Expiration Date Visits Requ ested Visits Authorized [id number] Closed 05/22/2021 05/22/2022 1 1 Encounter Details Date Type Department Care Team Description 11/14/2021 Comprehensive Visit Department of Emmanuel Herrera Disc Disorder With Myelopathy (Primary Dx); Orthopedic Surgery Buster Lang M.D. Stenosis Spinal Cervical; in [place], [facility] [address] [facility] Preoperative Exam; [place], [place] Contact With And (Suspected) Exposure To COVID-19; [address] [facility] [phone] Encounter For Preprocedural Laboratory E xamination (COVID-19) [place], [place] [phone] (Work) [phone] Social History Tobacco Use Types Packs/Day Years [...] or relatives? How often do you attend taoism or Never 2021 sabianism services? Do you belong to any clubs or Yes 12/12/2021 organizations such as taoism groups, unions, fraternal or athletic groups, or [...] place to sleep or slept in a fpc (including now)? Education Answer Date Recorded What is the highest level of school Master's degree (e.g., M Dago, MS, 07/15/2020 you have completed or the highest [employer], MEd, [employer], ODILIA) degree you have received? Sex Assigned at Date Recorded Female 07/21/2017 2:58 PM CDT documented as of this encounter Consult Notes Buster Herrera M.D. - 11/14/2021 8:30 AM CDT SUBJECTIVE REASON FOR CONSULT Neck and right upper extremity pain with numbness, tingling, and weakness, progressive imbalance. HISTORY OF PRESENT ILLNESS Ms. Adames is a very pleasant 66-year-old female who reports neck and some right upper extremity pain radiating into the lateral arm with some paresthesias that radiate, passing on the dorsal forearm and into the hand. It seems to be worse predominantly on the right side but does have symptoms on the left. Associated with this, she has noted numbness and weakness in her hands and problems with hand dexterity. She is no longer able to knit as a result. In addition to this, she has had progressive gait instability and several recent falls. She has been seen elsewhere for this and been diagnosed with cervical stenosis and told that she was recommended for a cervical decompression. She presents today for additional opinion. In addition to her neck symptoms, she does have low back and bilateral buttock and posterior thigh pain, worse with prolonged standing or walking. She does report that this is better when she does use a walker which helps not only with her gait stability but also with her pain symptoms. She otherwise denies any constitutional symptoms. She does have some chronic bladder incontinence in the setting ofpelvic floor dysfunction. She has tried comprehensive nonoperative treatment for this including physical therapy, anti-inflammatory medications, narcotic pain medications, as well as epidural injections. Her past history is notable for fibromyalgia, pelvic floor dysfunction, and diabetes for which she is on metformin and glipizide. She otherwise has not had any cervical surgery but is also on Xarelto for history of mitral valve prolapse and DVT with PE. Otherwise, she is a former smoker, does not currently use. She is retired. OBJECTIVE PHYSICAL EXAMINATION Musculoskeletal: The patient really is unable to perform straight-line or heel- toe gait secondary toher wide-based gait. She does have tenderness about the cervical spine and does have a positive Lhermitte's phenomenon. She otherwise has negative Spurling's, negative shoulder irritability. She has decreased range of motion with flexion and extension of the cervical spine. Otherwise, on manual motor strength testing, she has 4- weakness in her right deltoid compared to 4 on the left. She has 4/5 weakness in bilateral biceps. She has 4- weakness in her left triceps and 4- weakness in bilateral hand interossei and finger flexors. She otherwise has 4/5 weakness in bilateral iliopsoas. She has full str ength in all remaining myotomes. She has decreased sensation over a right greater than left C5-6 distribution. She has palpable pulses in all 4 extremities. She has brisk reflexes in bilateral upper extremities. She is slightly hyporeflexic in her lower extremities. Otherwise, she has a positive Nancy's bilaterally, slightly more noticeable on the left in comparison to right. She has negative Babinski, negative ankle clonus bilaterally. DIAGNOSTICS On review of the patient's imaging including an MRI scan of the cervical spine, the patient does have congenital cervical stenosis superimposed on this. She has quite advanced stenosis with cord compression and cord signal change at the C4-5 and C5-6 levels. She has moderate stenosis at C6-7 and C3-4.She has multilevel foraminal stenosis associated with this. She does have relatively mildly lordoticalignment on the MRI scan, and she is K-line positive. Otherwise, on review of her x-rays of the lumbar spine, she does have a moderate degenerative scoliosis which I measure to be roughly 20 degrees in magnitude from L3-S1. Associated with this, she does appear to have a grade 1 spondylolisthesis at L4-5. On review of an MRI scan obtained January 25, 2021, the patient does have severe tricompartmental stenosis at the L2-3, L3-4, and L4-5 levels. This is associated with multilevel foraminal stenosis which can be best appreciated on the T1-weighted parasagittal images which is advanced at L4 and L3 on the right and moderate at L3 on the left and L2 on the left. ASSESSMENT / PLAN #1 Progressive cervical myeloradiculopathy #2 Progressive hand dysfunction and gait instability #3 Congenital cervical stenosis with multilevel cord compression and cord signal change #4 Chronic urinary dysfunction in the setting of pelvic floor dysfunction #5 Low back and bilateral lower extremity pain with numbness, tingling, weakness #6 Progressive neurogenic claudication #7 Multilevel lumbar stenosis with L4-5 spondylolisthesis #8 Degenerative scoliosis At this time, certainly the patient does have a complex presentation. It does seem like the predominant complaint at this time is with regard to her cervical myelopathy. This is her biggest concern understandably on her presentation today, especially in the setting of her multiple falls. I did discusswith her if she were to consider a surgical intervention to prevent progression of her myelopathy, in my hands this would likely entail cervical laminoplasty done from C3-7. I did discuss the rationalefor this approach and what this would entail. We did discuss risks, benefits, and alternatives. At this point, she would like to proceed. She understands that her low back issues may need addressing from a surgical standpoint in the future. We will look to set up a surgical date and plan to see her back for a preoperative visit. We will plan to have her see back in Vascular Medicine as well to find out the appropriate management of her perioperative anticoagulation. All questions were answered. Buster Herrera M.D. CT CT Job ID: [id number] documented in this encounter Plan of Treatment Scheduled Referrals Name Type Priority Associated Diagnoses Order S chedule Orthopedic Surgery Pre Outpatient Routine Expec mando: Op (clinic) Referral 12/21/2021, Expires: 11/14/2022 Preoperative Outpatient Routine Preoperative Exam Expected: Evaluation SILVIA consult Referral 12/21, (clinic) Expires: 11/14/2022 Social Work - General Outpatient Routine Preoperative Exam E xpected: consult (clinic) Referral 12/21/2021, Expires: 11/14/2022 Vascular Medicine - Outpatient Routine Preoperative Exam Exp ected: Thrombophilia consult Referral 2021, (clinic) Expires: 02/13/2023 documented as of this encounter Results DX Cervical Spine 4-5 [...] in flexion. Buster BRAGA DI[facility]NOST[facility] IMAG[facility] PROCE DURES CT Cervical Spine without IV Contrast (12/18/2021 [...] ultrasound is recommended if clinically appropriate. Buster Herrera M.D. IMG CT PROCEDURES (ABNORMAL) Comprehensive Metabolic Panel (12/18/2021 12:28 PM CDT) P athologist Signature Potassium, S 4.5 3.6 - [...] 12/18/2021 1:07 Venous) PM CDT PM CDT Buster Herrera M.D. LAB BLOOD ADD-ON Performing Organization Address City/State/ZIP Code Phon e Number [facility] - [address] [place], [place] [address] [facility] [place] [address] Laboratories-[facility] [address] APTT (Activated Partial Thromboplastin Time) (12/18/2021 12:28 PM CDT) P athologist Signature Activated 34 25 - 37 sec 12/18/2021 DTL Partial 1:23 PM CDT Thrombopl Time, P Specimen Anatomical Collection Method Collection Time Receive d Time (Source) Location / / Volume Laterality Blood (Blood, 12/18/2021 12:28 12/18/2021 Venous) PM CDT 12:38 PM CDT Buster Herrera M.D. LAB BLOOD ADD-ON Performing Organization Address City/[facility]/ZIP Code Phon e Number [facility] - [address] [place], [place] [address] [place] [address] [facility] [address] 25-Hydroxyvitamin D2 and D3 (12/18/2021 12:28 PM CDT) P athologist Signature 25-Hydroxy D2 <4.0 ng/mL 12/20/2021 [facility] 8:04 AM CDT 25-Hydroxy D3 36 ng/mL 12/20/2021 [facility] 8:04 AM CDT 25-Hydroxy D 36 ng/mL 12/20/2021 [facility] Total 8:04 AM CDT Comment: ----REFERENCE VALUE---- 25-HYDROXY D TOTAL (D2+D3) Optimum level s in the healthy population are 20-50, patients with bone disease may benefit from higher levels within this r pierre. ----ADDITIONAL INFORMATION---- This test was developed and its performa nce characteristics determined by [facility] in a manner consistent with CLIA requirements. This test has not been cleared or approved by the U.S. Vira d and Drug Administration. Specimen Anatomical Collection Method Collection Time Receive d Time (Source) Location / / Volume Laterality Blood (Blood, 12/18/2021 12:28 12/19/2021 7:23 Venous) PM CDT AM CDT Buster Herrera M.D. LAB BLOOD ADD-ON Performing Organization Address City/[facility]/ZIP Code Phon e Number [facility] [address] [place], [place] [address] [facility] [place] [address] [facility] [address] [place] Type and Screen (with reflex Antibody ID) (12/18/2021 12:28 PM CDT) Patholo gist Method Time Signature ABORh O Pos Not 12/18/2021 [facility] applicable 3:16 PM CDT Antibody Negative Negative 12/18/2021 [facility] Screen 3:33 PM CDT Type & Screen 02/15/2022 12/18/2021 [facility] Expiration 23:59 3:16 PM CDT Testing [place] DEFAULT 12/18/2021 E[facility] Location 12:44 PM CDT Specimen Anatomical Collection Method Collection Time Receive d Time (Source) Location / / Volume Laterality Blood (Blood, 12/18/2021 12:28 12/18/2021 Venous) PM CDT 12:44 PM CDT Buster Herrera M.D. LAB BLOOD BANK TEST ORDERABL ES Performing Organization Address [facility] Phon e Number [facility] - [address] [place], [place] [phone] [place] [address] (ABNORMAL) Hemoglobin A1c (12/18/2021 12:28 PM CDT) [...] 12/18/2021 Venous) PM CDT 12:38 PM CDT Buster Herrera M.D. LAB BLOOD ADD-ON Performing Organization Address City/[facility] Phon e Number [facility] - [address] [place] [address] Prothrombin Time (PT) (12/18/2021 12:28 PM [...] 12/18/2021 Venous) PM CDT 12:38 PM CDT Buster Herrera M.D. LAB BLOOD ADD-ON Performing Organization Address City/State/ZIP Code Phon e Number [facility] - 200 [place], [place] [address] [facility] [place] [address] [facility] [address] [facility] (ABNORMAL) CBC with Differential, Blood (12/18/2021 12:28 PM CDT) [facility] gist Method Time Signature Hemoglobin 14.8 11.6 - [...] x10(9)/L Basophils 0.10 (H) 0.01 - 12/18/2021 [facility] 0.08 1:57 PM CDT x10(9)/L Specimen Anatomical Collection Method Collection Time Receive d Time (Source) Location / / Volume Laterality Blood (Blood, 12/18/2021 12:28 12/18/2021 Venous) PM CDT 12:38 PM CDT Buster Herrera M.D. LAB BLOOD ADD-ON Performing Organization Address City/State/ZIP Code Phon e Number [facility] - [address] [place], [place] [address] [place] [address] Laboratories-[facility] [address] BMD Bone Density Spine Hips (12/18/2021 12:24 [...] Mineral Density (BMD) analysis perf ormed on [employer] with serial number [id number]. ? FINDINGS: Left Hip: Femur Neck: BMD [...] including images and graphs, is available in [employer]. In the absence of other causes of [...] Mineral Density (BMD) analysis perf ormed on A [employer] with serial number [id number]. FINDINGS: Left Hip: Femur Neck: BMD = [...] including images and graphs, is available in [employer]. In the absence of other causes of [...] density (Osteopenia) DualFemur (region: Neck Right) Buster Herrera M.D. I[facility] DXA PROCEDURES documented in this encounter Visit Diagnoses Diagnosis Cervical Disc Disorder With Myelopathy - Primary Stenosis Spinal Cervical Preoperative Exam Contact With And (Suspected) Exposure To COVID-19 Encounter For Preprocedural Laboratory E xamination (COVID-19) Stenosis Spinal Cervical Preoperative Exam Preoperative Exam documented in this encounter Additional Health Concerns Assessment Noted Time PHQ-9 Depression Total Score: 5 04/29/2016 10:10 AM CS T documented as of this encounter
--- OUTSIDE RECORDS SUMMARY | 2022-01-12 12:34 | XMS_ITS | Encounter Summary ---
:1955 Author Organization [facility] Address [address] [place] [address] Care Team Providers Name Role Phone Unavailable Primary Care Provider Unavailable Encounter Details Date Type Department Care Team Description 06/16/2020 Clinical Communication Department of Sleep Meghna Valdez, Medicine in [place], M.P .H. [place] [address] [place] [address] [phone] Social History Tobacco Use Types Packs/Day Years [...] or relatives? How often do you attend jew or Never 2021 uatsdin services? Do you belong to any clubs or Yes 12/12/2021 organizations such as jew groups, unions, fraternal or athletic groups, or [...] or slept in a long-term (including now)? Sex Assigned at Date Recorded Female 07/21/2017 2:58 PM CDT documented as of this encounter Plan of Treatment Not on filedocumented as of this encounter Visit Diagnoses Not on filedocumented in this encounter Additional Health Concerns Assessment Noted Time PHQ-9 Depression Total Score: 5 04/29/2016 10:10 AM CS T documented as of this encounter
--- OUTSIDE RECORDS SUMMARY | 2022-01-12 12:35 | XMS_ITS | Encounter Summary ---
:1955 Author Organization [facility] Address [address] [place] [address] Care Team Providers Name Role Phone Unavailable Primary Care Provider Unavailable Encounter Details Date Type Department Care Team Description 01/05/2018 Clinical Communication Department of Physical Catarina Garcia, Medicine and R.N. Rehabilitation in [address] [place], [place] [address] [place] [phone] [place], [place] [phone] Social History Tobacco Use Types Packs/Day [...] or relatives? How often do you attend anglican or Never 2021 caodaism services? Do you belong to any clubs or Yes 12/12/2021 organizations such as anglican groups, unions, fraternal or athletic groups, or [...] or slept in a intermediate (including now)? Sex Assigned at Date Recorded Female 07/21/2017 2:58 PM CDT documented as of this encounter Miscellaneous Notes Telephone Encounter - Elida Garcia R.N. - 01/05/2018 9:46 AM CDT I returned a call to Mrs Adames. She completed our Evacuation Disorders Program with me about two and a half weeks ago. She has had difficulty inserting the rectal balloon far enough so had not mukesh practicing the home program. She says it seems like her colon closed up as soon as she left ourtwo week program. She feels there is something blocking her colon further inside her than the outlet. She has had difficulty with BMs even though she thinks about pelvic floor relaxation throughout theday. She has been taking MiraLAX once a day. I suggested she increase it to one and a half or two divided doses a day. Several days ago she had to do a Dulcolax suppository and it gave her much discomfort and cramping. We discussed alternative ways to insert the rectal balloon and she will try that. Ioffered that her MR proctogram on January 20 might be revealing even if it only confirms she continues with an evacuation disorder. She appreciated the call and will stay in touch. documented in this encounter Plan of Treatment Not on filedocumented as of this encounter Visit Diagnoses Not on filedocumented in this encounter Additional Health Concerns Assessment Noted Time PHQ-9 Depression Total Score: 5 04/29/2016 10:10 AM CS T documented as of this encounter
--- OUTSIDE RECORDS SUMMARY | 2022-01-12 12:35 | XMS_ITS | Encounter Summary ---
:1955 Author Organization [facility] Address [address] [place] [address] Care Team Providers Name Role Phone Unavailable Primary Care Provider Unavailable Reason for Visit Appointment Request (Routine) - Canceled Specialty Diagnoses / Procedures Referred By Contact Refer red To Contact Henry Alfaro M. B.B.S. [address] [place] [phone] Referral ID Status Reason Start Date Expiration Date Visits V isits Requested Authorized [id number] Canceled 10/06/2017 10/06/2018 1 Encounter Details Date Type Department Care Team Description 12/18/2017 Nurse Only Department of Physical Henry Alfaro M.B.B.S. [address] [place] [phone] Medicine and Rehabilitation in Elida Garcia R.N. [address] [place] [phone] [place], [place] [address] [place] [phone] Social History Tobacco Use Types Packs/Day [...] or relatives? How often do you attend latter day or Never 2021 yarsanism services? Do you belong to any clubs or Yes 12/12/2021 organizations such as latter day groups, unions, fraG-cluster or athletic groups, or school groups? How [...] place to sleep or slept in a mcc (including now)? Sex Assigned at Date Recorded Female 07/21/2017 2:58 PM CDT documented as of this encounter Progress Notes Elida Garcia R.N. - 12/18/2017 9:00 AM CDT SUBJECTIVE REQUESTING PROVIDER Henry Alfaro M.B.BCandyS. CHIEF COMPLAINT/REASON FOR VISIT Chronic constipation with some expelling difficulties. Pelvic floor dyssynergia. Evacuation Disorders Program for pelvic floor muscle retraining. ASSESSMENT / PLAN Yaz had another fairly good BM yesterday afternoon. She is getting where she can identify a true urge from a false signal. The stool was somewhat hard and she sat on the toilet for 38 minutes. She did not strain. She did not have pain or the sick feeling she gets when we work with the rectal balloon. During today's first session we worked with the 15cc water filled rectal balloon for sensorimotor biofeedback with her sitting on the commode. She experienced lower right quadrant abdominal pain when Iinserted the empty balloon. After a minute she started having low anterior abdominal pain and the sick feeling. I slowly inflated the balloon while she laid on her side. At 5cc she felt a strong urge. She then sat on the commode to work on correct defecation dynamics. The pain did not ease up. I verbally cued her to continue diaphragmatic breathing despite the pain. The balloon slowly moved down in the rectum as I gently tractioned it. As it moved she felt worse. Soon the balloon was at the outlet an d I cued her to continue thinking about maintaining the open and relaxed feeling at the rectal outlet. The 15cc balloon was released/pulled through with minimal traction. The pain continued after we were done with the balloon. Elida Garcia R.N. 12/18/2017 9:38 AM documented in this encounter Plan of Treatment Not on filedocumented as of this encounter Visit Diagnoses Diagnosis Dysfunction Pelvic Floor Female documented in this encounter Additional Health Concerns Assessment Noted Time PHQ-9 Depression Total Score: 5 04/29/2016 10:10 AM CS T documented as of this encounter
--- OUTSIDE RECORDS SUMMARY | 2022-01-12 12:35 | XMS_ITS | Encounter Summary ---
:1955 Author Organization [facility] Address [address] [place] [address] Care Team Providers Name Role Phone Unavailable Primary Care Provider Unavailable Reason for Visit Appointment Request (Routine) - Canceled Specialty Diagnoses / Procedures Referred By Contact Refer red To Contact Henry Alfaro M. B.B.S. [address] [place] [phone] Referral ID Status Reason Start Date Expiration Date Visits V isits Requested Authorized [id number] Canceled 10/06/2017 10/06/2018 1 Encounter Details Date Type Department Care Team Description 12/11/2017 Nurse Only Department of Physical Henry Alfaro M.B.B.S. [address] [place] [phone] Medicine and Rehabilitation in Elida Garcia R.N. [address] [place] [address] [phone] [place], [place] [address] [place] [address] [phone] Social History Tobacco Use Types Packs/Day [...] do you attend baptism or Never 2021 jainism services? Do you belong to any clubs or Yes 12/12/2021 organizations such as baptism groups, unions, fraActivehours or athletic groups, or school groups? How [...] as of this encounter Progress Notes Elida Garcia, RCandyN. - 12/11/2017 3:00 PM CDT SUBJECTIVE REQUESTING PROVIDER Henry Alfaro M.B.BCandyS. CHIEF COMPLAINT/REASON FOR VISIT Chronic constipation with some expelling difficulties. Pelvic floor dyssynergia. Evacuation Disorders Program for pelvic floor muscle retraining. ASSESSMENT / PLAN During today's second session we used the TTL rectal sensor for anorectal biofeedback. With the patient side-lying, initial baseline EMG levels were elevated to 2.1 microvolt(s). (Desired relaxation level is one microvolt or less). The primary focus of this session was optimal pelvic floor relaxation. With verbal cuing on anterior and posterior pelvic floor relaxation and previous strategies used to decrease EMG activity she eventually could relax down to a good 0.9 mvs, however, she then began to experience a vague rectal urge and the sick feeling she gets. She says that feeling is pain, sometimes muscle spasms in the low abdominal area and right hip pain. I cued her to think about relaxation/release in those two areas but the discomfort increased. She will not work with the EMG biofeedback equipment on her own this evening. Discussed our sessions tomorrow. Elida Garcia R.N. documented in this encounter Plan of Treatment Not on filedocumented as of this encounter Visit Diagnoses Diagnosis Dysfunction Pelvic Floor Female documented in this encounter Additional Health Concerns Assessment Noted Time PHQ-9 Depression Total Score: 5 04/29/2016 10:10 AM CS T documented as of this encounter
--- OUTSIDE RECORDS SUMMARY | 2022-01-12 12:35 | XMS_ITS | Encounter Summary ---
:1955 Author Organization [facility] Address [address] [place] [address] Care Team Providers Name Role Phone Unavailable Primary Care Provider Unavailable Reason for Visit Appointment Request (Routine) - Canceled Specialty Diagnoses / Procedures Referred By Contact Refer red To Contact Henry Alfaro M. B.B.S. [address] [place] [phone] Referral ID Status Reason Start Date Expiration Date Visits V isits Requested Authorized [id number] Canceled 10/06/2017 10/06/2018 1 Encounter Details Date Type Department Care Team Description 12/17/2017 Nurse Only Department of Physical Henry Alfaro M.B.B.S. [address] [place] [phone] Medicine and Rehabilitation in Elida Garcia R.N. [address] [place] [address] [phone] [place], [place] [address] [place] [address] [phone] Social History Tobacco Use Types Packs/Day [...] many times do you More than three vyette es a week 12/12/2021 talk on the phone with family, friends, or neighbors? How often do you get together with friends More than three t imes a week 12/12/2021 or relatives? How often do you attend adventist or Never 2021 muslim services? Do you belong to any clubs or Yes 12/12/2021 organizations such as adventist groups, unions, fraCoinHoldings or athletic groups, or school groups? How [...] or slept in a detention (including now)? Sex Assigned at Date Recorded Female 07/21/2017 2:58 PM CDT documented as of this encounter Progress Notes Elida Garcia RCandyN. - 12/17/2017 3:00 PM CDT SUBJECTIVE REQUESTING PROVIDER Henry Alfaro M.B.BCandyS. CHIEF COMPLAINT/REASON FOR VISIT Chronic constipation with some expelling difficulties. Pelvic floor dyssynergia. Evacuation Disorders Program for pelvic floor muscle retraining. ASSESSMENT / PLAN During today's second session we worked with the 15cc water filled rectal balloon for sensorimotor biofeedback with her sitting on the commode. We focused on optimal pelvic floor relaxation prior to expulsion attempt, and instruction on the stages of dynamic pelvic floor release. She had the usual discomfort just from inserting the empty rectal balloon. The discomfort increased as I slowly inflated the balloon with her lying on her side. Sitting on the commode she felt the balloon drop before I started tractioning it. As I tractioned it she had good pelvic floor relaxation and she can feel the balloon move down in her rectum. I verbally cued her on maintaining rectal outlet relaxation as the balloon approached the outlet. The 15cc balloon was easily released/pulled through with minimal traction. Overall she had less discomfort and pain than she did this morning. She asked what her options are ifthis program doesn't work. I explained that would be up to the doctors after she has the MR proctogram in January. Elida Garcia R.N. 12/17/2017 4:12 PM documented in this encounter Plan of Treatment Not on filedocumented as of this encounter Visit Diagnoses Diagnosis Dysfunction Pelvic Floor Female documented in this encounter Additional Health Concerns Assessment Noted Time PHQ-9 Depression Total Score: 5 04/29/2016 10:10 AM CS T documented as of this encounter
--- OUTSIDE RECORDS SUMMARY | 2022-01-12 12:35 | XMS_ITS | Encounter Summary ---
:1955 Author Organization [facility] Address [address] [place] [address] Care Team Providers Name Role Phone Unavailable Primary Care Provider Unavailable Reason for Visit Appointment Request (Routine) - Canceled Specialty Diagnoses / Procedures Referred By Contact Refer red To Contact Henry Alfaro M. B.B.S. [address] [place] [phone] Referral ID Status Reason Start Date Expiration Date Visits V isits Requested Authorized [id number] Canceled 10/06/2017 10/06/2018 1 Encounter Details Date Type Department Care Team Description 12/15/2017 Nurse Only Department of Physical Henry Alfaro M.B.B.S. [address] [place] [phone] Medicine and Rehabilitation in Elida Garcia R.N. [address] [place] [address] [phone] [place], [place] [address] [place] [address] [phone] Social History Tobacco Use Types Packs/Day [...] or relatives? How often do you attend hindu or Never 2021 adventist services? Do you belong to any clubs or Yes 12/12/2021 organizations such as hindu groups, unions, fraLantos Technologies or athletic groups, or school groups? How [...] place to sleep or slept in a senior care (including now)? Sex Assigned at Date Recorded Female 07/21/2017 2:58 PM CDT documented as of this encounter Progress Notes Elida Garcia RCandyN. - 12/15/2017 1:00 PM CDT SUBJECTIVE REQUESTING PROVIDER Henry Alfaro M.B.B.S. CHIEF COMPLAINT/REASON FOR VISIT Chronic constipation with some expelling difficulties. Pelvic floor dyssynergia. Evacuation Disorders Program for pelvic floor muscle retraining. ASSESSMENT / PLAN Yaz did not have a great weekend. She worked with the [employer] EMG biofeedback equipment on Friday and the more she optimally relaxed the pelvic floor muscles the more low abdominal cramping she experienced. When she splinted she felt there was tissue hanging out of her vagina. On Friday she had the urge feeling all day then did a bisacodyl suppository in the evening. She noted difficulty inserting the suppository due to what felt like a blockage. She had much cramping and eventually expelled a large amount of stool but did not feel that she was empty. 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 During today's first session we used the 10cc water filled rectal balloon with her sitting on the commode. I stopped inflating at 10cc and she began to experience right lower pain. I inflated the balloon with her lying on her left side. We focused on establishing baseline pelvic floor relaxation priorto expulsion attempt when she sat on the commode. She leaned forward slightly. I gently tractioned the balloon and there was one small paradoxical contraction of the outlet muscles which she could feeland readily self corrected. I continued gently tractioning the balloon and it moved slowly down in the rectum which she could feel. I continued traction and the 10cc balloon was easily pulled through with minimal traction. I explained that each session I will challenge her with a little bit bigger balloon at the end of the session which she is agreeable with. Will attempt to work with 15 or 20cc in the balloon this afternoon. Elida Garcia R.N. 12/15/2017 1:37 PM documented in this encounter Plan of Treatment Not on filedocumented as of this encounter Visit Diagnoses Diagnosis Dysfunction Pelvic Floor Female documented in this encounter Additional Health Concerns Assessment Noted Time PHQ-9 Depression Total Score: 5 04/29/2016 10:10 AM CS T documented as of this encounter
--- OUTSIDE RECORDS SUMMARY | 2022-01-12 12:35 | XMS_ITS | Encounter Summary ---
:1955 Author Organization [facility] Address [address] [place] [address] Care Team Providers Name Role Phone Unavailable Primary Care Provider Unavailable Encounter Details Date Type Department Care Team Description 12/12/2017 Clinical Communication Division of Elida Garcia, Gastroenterology in [place], [place] [address] [facility] [address] [place] [phone] Social History Tobacco Use Types Packs/Day Years [...] do you attend anglican or Never 2021 restoration services? Do you [...]
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
--- OUTSIDE RECORDS SUMMARY | 2022-01-12 12:35 | XMS_ITS | Encounter Summary ---
:1955 Author Organization [facility] Address [address] [place] [address] Care Team Providers Name Role Phone Unavailable Primary Care Provider Unavailable Encounter Details Date Type Department Care Team Description 06/01/2018 Clinical Communication Pain Rehabilitation Vasile [facility] [place] in [facility] [address] [place] [phone] Social History Tobacco Use Types Packs/Day Years [...] or relatives? How often do you attend jehovah's witness or Never 2021 taoist services? Do you belong to any clubs or Yes 12/12/2021 organizations such as jehovah's witness groups, unions, fraternal or athletic groups, or [...]
--- OUTSIDE RECORDS SUMMARY | 2022-01-12 12:35 | XMS_ITS | Encounter Summary ---
:1955 Author Organization [facility] Address [address] [place] [address] Care Team Providers Name Role Phone Unavailable Primary Care Provider Unavailable Reason for Visit Reason Comments Patient Education Appointment Request (Routine) - Closed Specialty Diagnoses / Procedures Referred By Contact Refer red To Contact Patient Education Referral ID Status Reason Start Date Expiration Date Visits Requ ested Visits Authorized [id number] Closed 11/25/2017 11/25/2018 1 1 Encounter Details Date Type Department Care Team Description 12/10/2017 Education Department of Patient Pepe Mar Education in [place], [address] [place] [address] [address] [facility] [phone] [place] [phone] Social History Tobacco Use Types Packs/Day Years [...] or relatives? How often do you attend rastafari or Never 2021 holiness services? Do you belong to any clubs or Yes 12/12/2021 organizations such as rastafari groups, unions, fraternal or athletic groups, or [...]
--- OUTSIDE RECORDS SUMMARY | 2022-01-12 12:35 | XMS_ITS | Encounter Summary ---
:1955 Author Organization [facility] Address [address] [place] [address] Care Team Providers Name Role Phone Unavailable Primary Care Provider Unavailable Encounter Details Date Type Department Care Team Description 12/12/2017 Orders Only Division of Dominic, Henry Incontinence Fecal Gastroenterology in C, M.B.B.SOld [place], [place] [address] [facility] [address] [place] [phone] Social History Tobacco Use Types Packs/Day Years [...] many times do you More than three yvetet es a week 12/12/2021 talk on the phone with family, friends, or neighbors? How often do you get together with friends More than three t imes a week 12/12/2021 or relatives? How often do you attend restoration or Never 2021 yarsanism services? Do you belong to any clubs or Yes 12/12/2021 organizations such as restoration groups, unions, fraternal or athletic groups, or [...] on filedocumented as of this encounter Results MR Proctogram Dynamic and Sphincter Eval without IV Contrast (01/20/2018 9:29 AM DIRECTOR OF PUBLIC SAFETY) Anatomical Region Laterality Modality Abdomen, Pelvis, Abdominal RST LOS, Abdominal ARZ LOS, N/A Magnetic Resonance Abdominal FLA LOS Specimen (Source) Anatomical Collection Method Collection Time Re ceived Time Location / / Volume Laterality 01/20/2018 2:31 PM DIRECTOR OF PUBLIC SAFETY Impressions 01/20/2018 2:48 PM DIRECTOR OF PUBLIC SAFETY IMPRESSION: ?? 1. Abnormal defecation with paradoxical contraction of the puborectalis during attempted evacuation. 2. No MRI findings of pelvic floor weakn ess. 3. Normal MRI appearance of the anal sph incters. Narrative 01/20/2018 2:48 PM DIRECTOR OF PUBLIC SAFETY EXAM: ??MR PROCTOGRAM DYNAMIC AND SPHINCTER EVAL WITHOUT IV CONTRAST COMPARISON: ??None FINDINGS: ?? Anatomy: ?? The external anal sphincter is normal in appearance. The internal anal sphincter is normal in appearance. Puborectalis is intact bilaterally. Function: ?? Anal canal is approximated at rest. Anorectal angle measures 126 degrees at rest, 78 degrees during squeeze, and 70 degrees during simulated defecation, ind icating paradoxical contraction during defecation. Anorectal junction is located ??3.0cm be low pubococcygeal line at rest, 2.8cm below at squeeze, and 3.1cm below the pu bococcygeal line at maximum descent. During simulated defecation, approximate ly 0% of rectal contents are evacuated. When the patient was allowed to use an u pright commode, roughly 95 percent of the instilled paste was evacuated. There is no rectocele. There is no cysto sabiha or abnormal descent of the cervix. Bladder base descends to a maximum of 1. 5cm below the pubococcygeal line. TECHNIQUE: ??Endoanal imaging of the yanely sphincters followed by dynamic MR proctography. Procedure Note Simon Damon M.D. - 01/20/2018Forma tting of this note might be different from the original. EXAM: MR PROCTOGRAM DYNAMIC AND SPHINCTE R EVAL WITHOUT IV CONTRAST COMPARISON: None FINDINGS: Anatomy: The external anal sphincter is normal in appearance. The internal anal sphincter is normal in appearance. Puborectalis is intact bilaterally. Function: Anal canal is approximated at rest. Anorectal angle measures 126 degrees at rest, 78 degrees during squeeze, and 70 degrees during simulated defecation, ind icating paradoxical contraction during defecation. Anorectal junction is located 3.0cm belo w pubococcygeal line at rest, 2.8cm below at squeeze, and 3.1cm below the pu bococcygeal line at maximum descent. During simulated defecation, approximate ly 0% of rectal contents are evacuated. When the patient was allowed to use an u pright commode, roughly 95 percent of the instilled paste was evacuated. There is no rectocele. There is no cysto sabiha or abnormal descent of the cervix. Bladder base descends to a maximum of 1. 5cm below the pubococcygeal line. TECHNIQUE: Endoanal imaging of the anal sphincters followed by dynamic MR proctography. IMPRESSION: 1. Abnormal defecation with paradoxical contraction of the puborectalis during attempted evacuation. 2. No MRI findings of pelvic floor weakn ess. 3. Normal MRI appearance of the anal sph incters. Henry BRAGA MRI PROCEDURES documented in this encounter Visit Diagnoses Diagnosis Incontinence Fecal Incontinence Fecal documented in this encounter Additional Health Concerns Assessment Noted Time PHQ-9 Depression Total Score: 5 04/29/2016 10:10 AM CS T documented as of this encounter
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
--- OUTSIDE RECORDS SUMMARY | 2022-01-12 12:35 | XMS_ITS | Encounter Summary ---
:1955 Author Organization [facility] Address [address] [place] [address] Care Team Providers Name Role Phone Unavailable Primary Care Provider Unavailable Reason for Visit Reason Comments GI Motility Constipation Encounter Details Date Type Department Care Team Description 04/22/2019 Clinical Division of Dominic, GI Motility; Communication Gastroenterology in [place], [place] M.B.B.S. [address] [facility] [facility] [address] [place] [phone] [facility] [phone] Social History Tobacco Use Types Packs/Day Years [...] or relatives? How often do you attend faith or Never 2021 denominational services? Do you belong to any clubs or Yes 12/12/2021 organizations such as faith groups, unions, fraternal or athletic groups, or [...] this encounter Miscellaneous Notes Telephone Encounter - Eric Brown - 05/10/2019 9:55 AM CST Referring physician's line called re: Pt. Notes in [employer] mention neuro. Thanks RIBUTION SUPERVISOR Telephone Encounter - Yaneth Patel R.N. - 04/30/2019 9:36 AM CST Sent Patient Online Services message, see Patient Email Encounter dated 04/30/2019 for more details. RIBUTION SUPERVISOR Telephone Encounter - Anika Dubose R.N. - 04/28/2019 4:26 PM DISTRIBUTION SUPERVISOR SUBJECTIVE CHIEF COMPLAINT / REASON FOR CALL GI Motility and Constipation Information Discussed Called Mrs. Adames, she shared that she is having bowel difficulties. She called and discuss her bowel difficulties with Elida Garcia, from [facility]. (please see her note dated 04/22/2019).Mrs. Multani shares she thinks her muscles are moving good however the stool gets stuck somewhere above. She shares at times she has loose stool. She does eats 9 grams of fiber daily for breakfast and supplements with Metamucil, rabia seeds, and flax meal. She does take MiraLAX 1 capful daily and if she does not have a bowel movement in 2-3 days she does use a suppository. She is scared that she may have an obstruction. She does have pain, she did note that she does have fibromyalgia. Also, her stepdaughter had an obstruction which turned into colon cancer. PLAN Disposition/Recommendation: notified provider and awaiting recommendations, recommended continue engagement in self-management activities and She has an appointment with her primary provider tomorrow. She will discuss an abdominal xray to assess for stool burden. If she has moderate stool, she could do a bowel cleanse. Discussed a Mag Citrate or Miralax/Gatorade cleanse. Then continue with her fiber,Miralax 1-2 capfuls daily, a suppository every 2-3 days as needed. And discuss with her Primary provider's recommendations. If she does not require the cleanse, this is reassuring that she is moving her bowels and continue to use Pelvic Floor techniques, Miralax daily, suppository as needed, fiber, adequate hydration with water, and exercise. Information/Education: patient/caller able to teach back Caller agreeable to plan of care: yes The following references were used: nursing clinical judgement, previous plan of care date: 09/24/[address] Alfaro Mrs. Multani will call with an update. I did explain I will share this message with Dr. Alfaro. Also, if her primary had any concerns, they can contact us. Also, if Mrs. Multani would like an appointment, she would prefer to see another provider (patient states there was not a good fit). RIBUTION SUPERVISOR documented in this encounter Plan of Treatment Not on filedocumented as of this encounter Visit Diagnoses Not on filedocumented in this encounter Additional Health Concerns Assessment Noted Time PHQ-9 Depression Total Score: 5 04/29/2016 10:10 AM CS T documented as of this encounter
--- OUTSIDE RECORDS SUMMARY | 2022-01-12 12:35 | XMS_ITS | Encounter Summary ---
:1955 Author Organization [facility] Address [address] [place] [address] Care Team Providers Name Role Phone Unavailable Primary Care Provider Unavailable Reason for Visit Reason Onset Date Comments Results 01/21/2018 Encounter Details Date Type Department Care Team Description 01/21/2018 Clinical Communication Department of Physical Rue, Catarina Cid, Results Medicine and R.N. Rehabilitation in [address] [place] [address] [place] [phone] [place] [phone] Social History Tobacco Use Types Packs/Day Years [...] or relatives? How often do you attend oriental orthodox or Never 2021 judaism services? Do you belong to any clubs or Yes 12/12/2021 organizations such as oriental orthodox groups, unions, fraternal or athletic groups, or [...] encounter Miscellaneous Notes Telephone Encounter - Elida Garcia, RCandyN. - 01/21/2018 12:00 PM CST I called Mrs Adames and explained that Dr Alfaro called me and told me the results of her MR proctogram. The usual procedure is his nurses call the patient with the results, but I offered to make the call because I know her and her situation, which he agreed with. I explained that her MR proctogram was normal with the exception of showing she continues with pelvic floor dyssynergia when shebears down as the puborectalis (sling) muscle contracts rather than relaxes when she bears down. Shesays she continues with bowel problems even though she no longer bears down for BMs since doing the 2 week program with me recently. When stool gets to her anal canal she relaxes and stool comes out eas y. She believes something higher up is blocking her stool from getting to the rectum. Her stools fluctuate between constipation and stringy stool. When constipated she does a Dulcolax suppository on the third day with gives her much discomfort but produces stool. She continues taking MiraLAX twice a day. She continues working with the rectal balloon for her home program most days, working with 15 ml which is very easy for her to release. I suggested she increase the water in the balloon to 20 ml which she will do. I explained it is known that the muscle disorder (dyssynergia) can contribute to slowing stool's movement to the rectum. She appreciated the phone call and plans to continue to manage her bowels. I suggested if she prefers more information she send Dr. Alfaro a message on the portal which she understands. 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
--- OUTSIDE RECORDS SUMMARY | 2022-01-12 12:35 | XMS_ITS | Encounter Summary ---
:1955 Author Organization [facility] Address [address] [place] [address] Care Team Providers Name Role Phone Unavailable Primary Care Provider Unavailable Encounter Details Date Type Department Care Team Description 11/28/2017 Clinical Communication Division of Henry Alfaro Gastroenterology in , [place] [address] [facility] [address] [place] [phone] Social History Tobacco Use Types Packs/Day Years [...] do you attend congregational or Never 2021 taoist services? Do you [...] this encounter Miscellaneous Notes Telephone Encounter - Henry Alfaro M.B.B.S. - 11/28/2017 12:49 PM CDT ----- Message from Cecile Knight sent at 11/25/2017 7:18 AM CDT ----- Regarding: FW: Return Dr. Alfaro, can you add this pt on on 12/17 or 12/18? To follow up pmr ----- Message ----- From: Ida Burger Sent: 11/24/2017 1:37 PM To: [facility] Subject: Return Please schedule a return with Dr. Alfaro prior to the last Friday of this patient's 2 week program. Thank you Telephone Encounter - Henry Alfaro M.B.B.S. - 11/28/2017 12:48 PM CDT ----- Message from Cecile Knight sent at 11/25/2017 7:18 AM CDT ----- Regarding: FW: Return Dr. Alfaro, can you add this pt on on 12/17 or 12/18? To follow up pmr ----- Message ----- From: Ida Burger Sent: 11/24/2017 1:37 PM To: [facility] Subject: Return Please schedule a return with Dr. Alfaro prior to the last Friday of this patient's 2 week program. Thank you documented in this encounter Plan of Treatment Not on filedocumented as of this encounter Visit Diagnoses Not on filedocumented in this encounter Additional Health Concerns Assessment Noted Time PHQ-9 Depression Total Score: 5 04/29/2016 10:10 AM CS T documented as of this encounter
--- OUTSIDE RECORDS SUMMARY | 2022-01-12 12:35 | XMS_ITS | Encounter Summary ---
:1955 Author Organization [facility] Address [address] [place] [address] Care Team Providers Name Role Phone Unavailable Primary Care Provider Unavailable Reason for Visit Appointment Request (Routine) - Canceled Specialty Diagnoses / Procedures Referred By Contact Refer red To Contact Henry Alfaro M. B.B.S. [address] [place] [phone] Referral ID Status Reason Start Date Expiration Date Visits V isits Requested Authorized [id number] Canceled 10/06/2017 10/06/2018 1 Encounter Details Date Type Department Care Team Description 12/12/2017 Nurse Only Department of Physical Henry Alfaro M.B.B.S. [address] [place] [phone] Medicine and Rehabilitation in Elida Garcia R.N. [address] [place] [phone] [place], [place] [address] [place] [phone] Social History Tobacco Use Types Packs/Day [...] do you attend caodaism or Never 2021 jain services? Do you belong to any clubs or Yes 12/12/2021 organizations such as caodaism groups, unions, fraProclivity Systems or athletic groups, or school groups? How [...] encounter Progress Notes Elida Garcia, RCandyN. - 12/12/2017 11:00 AM CDT SUBJECTIVE REQUESTING PROVIDER Henry Alfaro M.B.B.S. CHIEF COMPLAINT/REASON FOR VISIT Chronic constipation with some expelling difficulties. Pelvic floor dyssynergia. Evacuation Disorders Program for pelvic floor muscle retraining. ASSESSMENT / PLAN Yaz toileted again to see if she could have a BM and this time, with two light pushes, she expelled a medium to large bowel movement that was [place] type 3, after about 5 minutes which she is pleased with. She feels better in general. During today's second session we used the TTL rectal sensor for anorectal biofeedback. With the patient initially side-lying, baseline EMG levels were recorded at 2.4 microvolt(s). (Desired relaxation level is one microvolt or less). The primary focus of this session was optimal pelvic floor relaxation. With minimal verbal cues she soon relaxed down to a good 1.2 mvs. When asked, she felt a sense of openness. She did not get the sick feeling as strong as she did earlier this morning. Then challengedher with sitting on the commode and she eventually could relax down to a very good 0.6 mvs which we discussed. Discussed how she will work with the loaner EMG biofeedback equipment over the weekend. She demonstrates independence with the equipment. If she can tolerate it next week, we will work with the rectal balloon. Elida Garcia R.N. documented in this encounter Plan of Treatment Not on filedocumented as of this encounter Visit Diagnoses Diagnosis Dysfunction Pelvic Floor Female documented in this encounter Additional Health Concerns Assessment Noted Time PHQ-9 Depression Total Score: 5 04/29/2016 10:10 AM CS T documented as of this encounter
--- OUTSIDE RECORDS SUMMARY | 2022-01-12 12:35 | XMS_ITS | Encounter Summary ---
:1955 Author Organization [facility] Address [address] [place] [address] Care Team Providers Name Role Phone Unavailable Primary Care Provider Unavailable Reason for Visit Appointment Request (Routine) - Canceled Specialty Diagnoses / Procedures Referred By Contact Refer red To Contact Henry Alfaro M. B.B.S. [address] [place] [phone] Referral ID Status Reason Start Date Expiration Date Visits V isits Requested Authorized [id number] Canceled 10/06/2017 10/06/2018 1 Encounter Details Date Type Department Care Team Description 12/11/2017 Nurse Only Department of Physical Henry Alfaro M.B.B.S. [address] [place] [phone] Medicine and Rehabilitation in Elida Garcia R.N. [address] [place] [address] [phone] [place], [place] [address] [place] [phone] Social History Tobacco Use Types Packs/Day [...] or relatives? How often do you attend nondenominational or Never 2021 baptism services? Do you belong to any clubs or Yes 12/12/2021 organizations such as nondenominational groups, unions, fraPenango or athletic groups, or school groups? How [...] place to sleep or slept in a care home (including now)? Sex Assigned at Date Recorded Female 07/21/2017 2:58 PM CDT documented as of this encounter Progress Notes Elida Garcia, RCandyN. - 12/11/2017 8:00 AM CDT SUBJECTIVE REQUESTING PROVIDER Henry Alfaro M.B.BCandyS. CHIEF COMPLAINT/REASON FOR VISIT Chronic constipation with some expelling difficulties. Pelvic floor dyssynergia. Evacuation Disorders Program for pelvic floor muscle retraining. ASSESSMENT / PLAN Yaz worked with the [employer] EMG biofeedback equipment last evening sitting on a chair. She had more difficulty relaxing her pelvic floor muscles than she did during her session with me. This morning she felt an urge for a BM and toileted and focused on deep breathing and relaxation but did not expelstool. She made a point to not strain. She could feel stool in her rectum when she splinted the vagina. She also experienced the sick feeling she gets sometimes. During today's first session we used the TTL rectal sensor for anorectal biofeedback. I explained wewould work with her lying on her side as that seemed to be more challenging for her to relax. With the patient side-lying, baseline EMG levels were elevated to 4.5 microvolt(s). (Desired relaxation level is one microvolt or less). The primary focus of this session was optimal pelvic floor relaxation. She incorporated previously learned relaxation skills but maintained with elevated tension. I verbally cued her on anterior and posterior pelvic floor relaxation and she could relax down to 1.2 mvs. Shebegan to feel the vague sick feeling she gets when relaxing lying down. When she had very good rela xation I asked if she can feel a difference in her pelvic floor muscles but she could not. She did feel more general relaxation. Elida Garcia R.N. documented in this encounter Plan of Treatment Not on filedocumented as of this encounter Visit Diagnoses Diagnosis Dysfunction Pelvic Floor Female documented in this encounter Additional Health Concerns Assessment Noted Time PHQ-9 Depression Total Score: 5 04/29/2016 10:10 AM CS T documented as of this encounter
--- OUTSIDE RECORDS SUMMARY | 2022-01-12 12:35 | XMS_ITS | Encounter Summary ---
:1955 Author Organization [facility] Address [address] [place] [address] Care Team Providers Name Role Phone Unavailable Primary Care Provider Unavailable Reason for Visit Appointment Request (Routine) - Canceled Specialty Diagnoses / Procedures Referred By Contact Refer red To Contact Henry Alfaro M. B.B.S. [address] [place] [phone] Referral ID Status Reason Start Date Expiration Date Visits V isits Requested Authorized [id number] Canceled 10/06/2017 10/06/2018 1 Encounter Details Date Type Department Care Team Description 12/16/2017 Nurse Only Department of Physical Henry Alfaro M.B.B.S. [address] [place] [phone] Medicine and Rehabilitation in Elida Garcia R.N. [address] [place] [address] [phone] [place], [place] [address] [place] [phone] Social History Tobacco Use Types Packs/Day [...] 12/12/2021 organizations such as mu-ism groups, unions, fraT4 Media or athletic groups, or school groups? How [...] encounter Progress Notes Elida Garcia R.N. - 12/16/2017 9:00 AM CDT SUBJECTIVE REQUESTING PROVIDER Henry Alfaro M.B.B.S. CHIEF COMPLAINT/REASON FOR VISIT Chronic constipation with some expelling difficulties. Pelvic floor dyssynergia. Evacuation Disorders Program for pelvic floor muscle retraining. ASSESSMENT / PLAN Yaz identifies that her central sensitization is flared up because she is very sensitive to slight irritation. We discussed if there is treatment for CSS, which I believe there is not. She uses distraction to ease her symptoms. During today's first session we initially worked with the 15cc water filled rectal balloon for sensorimotor biofeedback with her sitting on the commode. She began to feel low abdominal pain and the sick feeling when I inserted the empty balloon. Yesterday when she expelled a 20cc balloon she had much outlet pain so this morning I looked for a fissure. There is a reddened area that looks like a partially open fissure but palpating it did not cause pain. This session we focused on establishing optimalpelvic floor relaxation prior to expulsion attempt and instruction on the stages of dynamic pelvic floor release. Although she notes that her BMs are easier to expel when she leans forward I asked her to stay sitting up on the commode. Despite an increase in her symptoms she had good initial pelvic floor relaxation and the balloon moved lower in the rectum with minimal traction. With her maintaining relaxation the 15cc balloon was easily pulled through. We then worked with a 20cc balloon with her sitting on the commode and again she had good initial pelvic floor relaxation as I tractioned the balloon and the 20cc balloon was easily released/expelled. She continued to feel an urge after the balloonwas out. We both wondered how much CSS is contributing to the intensity of her symptoms. 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 I wonder how significant her pelvic prolapse is if at all. Elida Garcia R.N. 12/16/2017 9:33 AM documented in this encounter Plan of Treatment Not on filedocumented as of this encounter Visit Diagnoses Diagnosis Dysfunction Pelvic Floor Female documented in this encounter Additional Health Concerns Assessment Noted Time PHQ-9 Depression Total Score: 5 04/29/2016 10:10 AM CS T documented as of this encounter
--- OUTSIDE RECORDS SUMMARY | 2022-01-12 12:35 | XMS_ITS | Encounter Summary ---
:1955 Author Organization [facility] Address [address] [place] [address] Care Team Providers Name Role Phone Unavailable Primary Care Provider Unavailable Reason for Visit Appointment Request (Routine) - Canceled Specialty Diagnoses / Procedures Referred By Contact Refer red To Contact Henry Alfaro M. B.B.S. [address] [place] [phone] Referral ID Status Reason Start Date Expiration Date Visits V isits Requested Authorized [id number] Canceled 10/06/2017 10/06/2018 1 Encounter Details Date Type Department Care Team Description 12/09/2017 Nurse Only Department of Physical Henry Alfaro M.B.B.S. [address] [place] [phone] Medicine and Rehabilitation in Elida Garcia R.N. [address] [place] [address] [phone] [place], [place] [address] [place] [address] [phone] Social History Tobacco Use Types Packs/Day [...] do you attend sikhism or Never 2021 alevism services? Do you belong to any clubs or Yes 12/12/2021 organizations such as sikhism groups, unions, fraElement Robot or athletic groups, or school groups? How [...] encounter Progress Notes Elida Garcia, RCandyN. - 12/09/2017 11:00 AM CDT SUBJECTIVE REQUESTING PROVIDER Henry Alfaro M.B.BCandyS. CHIEF COMPLAINT/REASON FOR VISIT Chronic constipation with some expelling difficulties. Pelvic floor dyssynergia. Evacuation Disorders Program for pelvic floor muscle retraining. ASSESSMENT / PLAN Yaz was able to expel a small BM by relaxing on the toilet and pushing three times. She wonders if there is something anatomically blocking her rectum. She does have a rectocele which she splints and a vaginal prolapse. During today's second session we used the TTL rectal sensor for anorectal biofeedback. With the patient initially side-lying, baseline EMG levels were elevated to 3.3 microvolt(s). (Desired relaxation level is one microvolt or less). The primary focus of this session was optimal pelvic floor relaxation. With minimal verbal cuing and moderate time she was able to relax the muscles to a very good 0.9 to 1.2 mvs, briefly 0.6 mvs. For a few minutes she felt the uncomfortable feeling in her rectum that she felt yesterday. Then worked with her sitting on the commode where she baselined at 2.1 mvs. I verbally cued her on the dropping sensation of the pelvic floor when the area optimally relaxes. She was able to relax down to a good 0.9 mvs but did not feel the area drop. We discussed that she seems to have better relaxation when distracted. At one point she could feel things open. Discussed working with the rectal balloon next session which she is looking forward to. Elida Garcia R.N. documented in this encounter Plan of Treatment Not on filedocumented as of this encounter Visit Diagnoses Diagnosis Dysfunction Pelvic Floor Female documented in this encounter Additional Health Concerns Assessment Noted Time PHQ-9 Depression Total Score: 5 04/29/2016 10:10 AM CS T documented as of this encounter
--- OUTSIDE RECORDS SUMMARY | 2022-01-12 12:35 | XMS_ITS | Encounter Summary ---
:1955 Author Organization [facility] Address [address] [place] [address] Care Team Providers Name Role Phone Unavailable Primary Care Provider Unavailable Reason for Visit Appointment Request (Routine) - Canceled Specialty Diagnoses / Procedures Referred By Contact Refer red To Contact Henry Alfaro M. B.B.S. [address] [place] [phone] Referral ID Status Reason Start Date Expiration Date Visits V isits Requested Authorized [id number] Canceled 10/06/2017 10/06/2018 1 Encounter Details Date Type Department Care Team Description 12/08/2017 Nurse Only Department of Physical Henry Alfaro M.B.B.S. [address] [place] [phone] Medicine and Rehabilitation in Elida Garcia R.N. [address] [place] [address] [phone] [place], [place] [address] [place] [address] [phone] Social History Tobacco Use Types Packs/Day [...] do you attend samaritan or Never 2021 zoroastrian services? Do you belong to any clubs or Yes 12/12/2021 organizations such as samaritan groups, unions, [employer] or athletic groups, or school groups? How [...] or slept in a fpc (including now)? Sex Assigned at Date Recorded Female 07/21/2017 2:58 PM CDT documented as of this encounter Consult Notes Elida Garcia RCandyN. - 12/08/2017 8:00 AM CDT SUBJECTIVE REQUESTING PROVIDER Henry Alfaro M.B.BCandyS. CHIEF COMPLAINT/REASON FOR VISIT Chronic constipation with some expelling difficulties. Pelvic floor dyssynergia. Evacuation Disorders Program for pelvic floor muscle retraining. HISTORY OF PRESENT ILLNESS Mrs. Yaz Adames is a 62 y.o. female, originally from [place], who was evaluated in our GI department for the above symptoms. She is here now to begin the two week Evacuation Disorders Program. The electronic health record was reviewed. Please refer to the notes by Dr Alfaro in the Department of Gastroenterology for details of the patient's history, course of present illness, and evaluation findings. The patient confirmed details as recorded. Mrs Adames has had life long constipation and also has vaginal prolapse. She tried a pessary for awhile but it made her constipation worse. She usually needs to splint the vaginal area to defecate. She has strained significantly in the past. I explained dyssynergia with an illustration of the rectal outlet muscles at rest and normal defecation. The last two weeks she has been taking MiraLAX daily she is having more regular BMs. She has one to several small BMs a day that are [place] Type 2 or 4. Stool is more formed and not stringy anymore. She eats a high fiber diet. No history of fecal incontinence. Mrs Bebeto Multani says up untilthe last two weeks her bowels have greatly affected her life. She used to spend a lot of time on thetoilet and had much cramping from Dulcolax suppositories. Regarding bladder, she continues with frequency, sometimes every 1-2 hours. She recently had a new symptom of hesitancy. She urinates just before going to bed and is usually not up during the night. She does have incontinence on her way to the bathroom for her first void of the day. Mrs Adames understands what to expect during this two week program from her discussions over the phone with myself and my co-worker Cecilia. I showed her the EMG biofeedback equipment we use. She is willing to proceed with biofeedback this visit. No barriers to learning identified. Of note, the patient participated in the [place] three week Pain Rehabilitation Program three yeas ago and says it was life changing. PHYSICAL EVALUATION Proceeded with EMG assessment of the pelvic floor muscles. Position of the patient: Side-lying Equipment used: [employer] rectal sensor and U-Control EMG biofeedback monitor. Baseline EMG level at rest: (desirable is 1.0 microvolt or less): Elevated to 1.8 microvolts. Volitional activation of the pelvic floor: Appropriate with good isolation effort. Identification of pelvic floor movement: Aware of the lift and squeeze components associated with activation. EMG activity with simulated evacuation: Paradoxical increase in activity which I explained confirms the diagnosis of dyssynergia. Best sustained relaxation of the pelvic floor: 1.2 to 1.5 microvolts. As she was getting dressed after the biofeedback she said she had discomfort, like cramps she gets from the Dulcolax suppository, in the rectal area. Will monitor. ASSESSMENT / PLAN Evacuation Disorders Program. The patient understands to think about her pelvic floor muscles throughout the day and try to keep them relaxed. Program goals are 1) Patient will isolate and identify pelvic floor muscles from accessory muscles on contraction and relaxation of same. 2) Patient will achieve optimal pelvic floor relaxation of less than 1 microvolt regardless of position or distraction. 3)Patient will correctly identify optimal pelvic floor relaxation on blind trial. 4) Patient will demonstrate correct defecation dynamics on EMG and rectal balloon biofeedback. 5) Patient will verbalize if behaviors exist which impact their GI symptoms, and verbalize a plan for modifying same if indicated. 6) Patient will be independent with a home program for continuing the above goals. penitentiary goal: At the end of the two week Home Program she will verbalize an easier, less time consuming, bowel movements. Bowel and Bladder Outcome Measure Scores at Intake: Not completed. Elida Garcia R.N. 12/08/2017 9:11 AM documented in this encounter Plan of Treatment Not on filedocumented as of this encounter Visit Diagnoses Diagnosis Dysfunction Pelvic Floor Female documented in this encounter Additional Health Concerns Assessment Noted Time PHQ-9 Depression Total Score: 5 04/29/2016 10:10 AM CS T documented as of this encounter
--- OUTSIDE RECORDS SUMMARY | 2022-01-12 12:35 | XMS_ITS | Encounter Summary ---
:1955 Author Organization [facility] Address [address] [place] [address] Care Team Providers Name Role Phone Unavailable Primary Care Provider Unavailable Reason for Visit Appointment Request (Routine) - Canceled Specialty Diagnoses / Procedures Referred By Contact Refer red To Contact Henry Alfaro M. B.B.S. [address] [place] [phone] Referral ID Status Reason Start Date Expiration Date Visits V isits Requested Authorized [id number] Canceled 10/06/2017 10/06/2018 1 Encounter Details Date Type Department Care Team Description 12/18/2017 Nurse Only Department of Physical Henry Alfaro M.B.B.S. [address] [place] [phone] Medicine and Rehabilitation in Elida Garcia R.N. [address] [place] [address] [phone] [place], [place] [address] [place] [address] [phone] Social History Tobacco Use Types Packs/Day [...] do you attend mu-ism or Never 2021 mandaeism services? Do you belong to any clubs or Yes 12/12/2021 organizations such as mu-ism groups, unions, fra[employer]SC[employer]P or athletic groups, or school groups? How [...] encounter Progress Notes Elida Garcia, RCandyN. - 12/18/2017 3:00 PM CDT SUBJECTIVE REQUESTING PROVIDER Henry Alfaro M.B.B.S. CHIEF COMPLAINT/REASON FOR VISIT Chronic constipation with some expelling difficulties. Pelvic floor dyssynergia. Evacuation Disorders Program for pelvic floor muscle retraining. ASSESSMENT / PLAN During today's second session we worked with the 15cc water filled rectal balloon for sensorimotor biofeedback with her sitting on the commode. Yaz thinks she might work with the rectal balloon for her home program so she inserted and inflated the balloon with verbal instructions. We focused on esta blishing optimal pelvic floor relaxation prior to expulsion attempt, and instruction on the stages of dynamic pelvic floor release. She tractioned the balloon herself with verbal instructions. She continues to get the sick feeling as the balloon moves down in the rectum. She wasn't sure how much pressure to apply to the balloon so I took over the pulling and she could feel that I was pulling more than she was. I verbally reminded her ot pelvic floor relaxation and deep breathing. The 15cc balloon was expelled/released with minimal traction. I showed her how to care for the balloon at the end of thesession. Tomorrow morning will finalize the program. Elida Garcia R.N. 12/18/2017 3:30 PM documented in this encounter Plan of Treatment Not on filedocumented as of this encounter Visit Diagnoses Diagnosis Dysfunction Pelvic Floor Female documented in this encounter Additional Health Concerns Assessment Noted Time PHQ-9 Depression Total Score: 5 04/29/2016 10:10 AM CS T documented as of this encounter
--- OUTSIDE RECORDS SUMMARY | 2022-01-12 12:35 | XMS_ITS | Encounter Summary ---
:1955 Author Organization [facility] Address [address] [place] [address]27 Care Team Providers Name Role Phone Unavailable Primary Care Provider Unavailable Reason for Visit Appointment Request (Routine) - Canceled Specialty Diagnoses / Procedures Referred By Contact Refer red To Contact Henry Alfaro M. B.B.S. [address] [place] [phone] Referral ID Status Reason Start Date Expiration Date Visits V isits Requested Authorized [id number] Canceled 10/06/2017 10/06/2018 1 Encounter Details Date Type Department Care Team Description 12/15/2017 Nurse Only Department of Physical Henry Alfaro M.B.B.S. [address] [place] [phone] Medicine and Rehabilitation in Elida Garcia R.N. [address] [place] [address] [phone] [place], [place] [address] [place] [address] [phone] Social History Tobacco Use Types Packs/Day [...] or relatives? How often do you attend mandaeism or Never 2021 anglican services? Do you belong to any clubs or Yes 12/12/2021 organizations such as mandaeism groups, unions, fraShopzilla or athletic groups, or school groups? How [...] place to sleep or slept in a longterm (including now)? Sex Assigned at Date Recorded Female 07/21/2017 2:58 PM CDT documented as of this encounter Progress Notes Elida Garcia RCandyN. - 12/15/2017 4:00 PM CDT SUBJECTIVE REQUESTING PROVIDER Henry Alfaro M.B.BCandyS. CHIEF COMPLAINT/REASON FOR VISIT Chronic constipation with some expelling difficulties. Pelvic floor dyssynergia. Evacuation Disorders Program for pelvic floor muscle retraining. ASSESSMENT / PLAN Yaz says she realizes the sick feeling she gets with BMs and working with the rectal balloon also includes light headedness and dizziness. During today's second session we worked with the rectal balloon equipment for sensorimotor biofeedback. I inserted and inflated the balloon with her lying on her side. She semi-tolerated a fill volume of 20cc of water. She experienced the usual sick feelingwith the balloon in her rectum. She then sat on the commode and we focused on establishing optimal pelvic floor relaxation prior to expulsion attempt. She can feel the balloon slowly move down in her rectum with verbal cuing on relaxation. She experienced more of the sick feeling. She then leaned forward on the commode and the 20cc balloon was easily pulled through with minimal traction. It seemed there was a paradoxical contraction of the outlet muscles at the very end of release which is when she felt pain at the outlet. We have discussed that some of her pain might be related to her Central Sensi tization Syndrome. Elida Garcia R.N. 12/15/2017 4:27 PM documented in this encounter Plan of Treatment Not on filedocumented as of this encounter Visit Diagnoses Diagnosis Dysfunction Pelvic Floor Female documented in this encounter Additional Health Concerns Assessment Noted Time PHQ-9 Depression Total Score: 5 04/29/2016 10:10 AM CS T documented as of this encounter
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
--- OUTSIDE RECORDS SUMMARY | 2022-01-12 12:35 | XMS_ITS | Encounter Summary ---
:1955 Author Organization [facility] Address [address] [place] [address] Care Team Providers Name Role Phone Unavailable Primary Care Provider Unavailable Encounter Details Date Type Department Care Team Description 03/23/2018 Clinical Communication Department of Physical Catarina Garcia, Medicine and R.N. Rehabilitation in [address] [place], [place] [address] [place] [phone] [place], [place] [phone] Social History Tobacco Use Types Packs/Day [...] or relatives? How often do you attend yazidism or Never 2021 zoroastrian services? Do you belong to any clubs or Yes 12/12/2021 organizations such as yazidism groups, unions, fraternal or athletic groups, or [...] Telephone Encounter - Elida Garcia R.N. - 03/23/2018 12:06 PM CST I returned a call to Yaz. She is happy to report that she is doing very well regarding her prolapse and constipation because she attended a Feldenkrais workshop. The workshop helped her tune in to what her pelvic floor muscles are doing. She applied one of the positions where the pelvic area is pushed forward to help during bowel movements. She has found that makes bowel movements much easier to expel and she is no longer bothered by feeling her prolapse. We discussed that prolapse can become a non-issue when people stop straining. She now takes MiraLAX 0-1 time a day and has significantly decreased her need for suppositories. I thanked her for the update and she will keep in touch. 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
--- OUTSIDE RECORDS SUMMARY | 2022-01-12 12:35 | XMS_ITS | Encounter Summary ---
:1955 Author Organization [facility] Address [address] [place] [address] Care Team Providers Name Role Phone Unavailable Primary Care Provider Unavailable Encounter Details Date Type Department Care Team Description 01/14/2018 Clinical Communication Department of Physical Catarina Garcia, Medicine and R.N. Rehabilitation in [address] [place], [place] [address] [place] [phone] [place], [place] [phone] Social History Tobacco Use Types Packs/Day [...] or relatives? How often do you attend baptist or Never 2021 temple services? Do you belong to any clubs or Yes 12/12/2021 organizations such as baptist groups, unions, fraternal or athletic groups, or [...] Telephone Encounter - Elida Garcia R.N. - 01/14/2018 2:43 PM CDT I returned a call to [facility]. She completed the two week Evacuation Disorders Program a month ago. She has had a tough 6 days. She was taking MiraLAX twice a day as I recommended and things were going well. Then she didn't have a BM for 2 or 3 days so did a Dulcolax suppository which gave her the usualcramps but produced large, easily expelled stool. She stopped MiraLAX Because a few days ago she started having very loose stool that was very urgent although she did not have incontinence. She continues getting false feelings of a rectal urge but toilets and there is nothing there. She has been working with the rectal balloon for her home program and that is going well. She believes the problem is higher in the pipe then the outlet. When she was here I had mentioned the colonic manometry test that can determine if a section of the colon is not working. She doesn't think she needs the MR proctogram next week because the balloon and stool are easily expelled. I encouraged her to have the proctogram since she is getting false urges and see what the doctors say. Discussed alternating her MiraLAX with 1 dose a day and 2 doses the next day. She appreciated the help and will keep in touch. documented in this encounter Plan of Treatment Not on filedocumented as of this encounter Visit Diagnoses Not on filedocumented in this encounter Additional Health Concerns Assessment Noted Time PHQ-9 Depression Total Score: 5 04/29/2016 10:10 AM CS T documented as of this encounter
--- OUTSIDE RECORDS SUMMARY | 2022-01-12 12:35 | XMS_ITS | Encounter Summary ---
:[address] [facility] Address [address] [place] [address] Care Team Providers Name Role Phone Unavailable Primary Care Provider Unavailable Encounter Details Date Type Department Care Team Description 01/12/2018 Clinical Communication Department of Physical Richard, Ida Medicine and K Rehabilitation in [address] [place] [address] [place] [phone] [place] [phone] Social History Tobacco Use Types Packs/Day Years [...] or relatives? How often do you attend evangelical or Never 2021 zoroastrian services? Do you belong to any clubs or Yes 12/12/2021 organizations such as evangelical groups, unions, fraternal or athletic groups, or [...] to sleep or slept in a senior living (including now)? Sex Assigned at Date Recorded Female 07/21/2017 2:58 PM CDT documented as of this encounter Miscellaneous Notes Telephone Encounter - Ida Burger - 01/12/2018 11:40 AM CDT Elida- Rosangela called and would like if you could give her a call back today please. Thanks! Ida documented in this encounter Plan of Treatment Not on filedocumented as of this encounter Visit Diagnoses Not on filedocumented in this encounter Additional Health Concerns Assessment Noted Time PHQ-9 Depression Total Score: 5 04/29/2016 10:10 AM CS T documented as of this encounter
--- OUTSIDE RECORDS SUMMARY | 2022-01-12 12:35 | XMS_ITS | Encounter Summary ---
:1955 Author Organization [facility] Address [address] [place] [address] Care Team Providers Name Role Phone Unavailable Primary Care Provider Unavailable Encounter Details Date Type Department Care Team Description 08/04/2018 [facility] Anoop Emery ther Dyspnea AND CLINICS D, MJay (Primary Dx) [address] [facility] [address] [place] [address] [place], [place] [phone] Social History Tobacco Use Types Packs/Day Years [...] do you attend jain or Never 2021 religion services? Do you belong to any clubs [...] as of this encounter Visit Diagnoses Diagnosis Other Dyspnea - Primary documented in this encounter Additional Health Concerns Assessment Noted Time PHQ-9 Depression Total Score: 5 04/29/2016 10:10 AM CS T documented as of this encounter
--- OUTSIDE RECORDS SUMMARY | 2022-01-12 12:35 | XMS_ITS | Encounter Summary ---
:1955 Author Organization [facility] Address [address] [place] [address] 47587 Care Team Providers Name Role Phone Unavailable Primary Care Provider Unavailable Reason for Visit Appointment Request (Routine) - Canceled Specialty Diagnoses / Procedures Referred By Contact Refer red To Contact Henry Alfaro M. B.B.S. [address] [place] [phone] Referral ID Status Reason Start Date Expiration Date Visits V isits Requested Authorized [id number] Canceled 10/06/2017 10/06/2018 1 Encounter Details Date Type Department Care Team Description 12/19/2017 Nurse Only Department of Physical Henry Alfaro M.B.B.S. [address] [place] [address] [phone] Medicine and Rehabilitation in Elida Garcia R.N. [address] [place] [address] [phone] [place], [place] [address] [place] [address] [phone] Social History Tobacco Use Types Packs/Day [...] do you attend bahai or Never 2021 mormonism services? Do you belong to any clubs or Yes 12/12/2021 organizations such as bahai groups, unions, fraTelinet or athletic groups, or school groups? How [...] encounter Progress Notes Elida Garcia R.N. - 12/19/2017 9:00 AM CDT SUBJECTIVE REQUESTING PROVIDER Henry Alfaro M.B.BCandyS. CHIEF COMPLAINT/REASON FOR VISIT Chronic constipation with some expelling difficulties. Pelvic floor dyssynergia. Evacuation Disorders Program for pelvic floor muscle retraining. ASSESSMENT / PLAN Yaz did not have a bowel movement yesterday which we have discussed is OK. She felt a bulge from her vagina in the evening that went away in the morning which we discussed. She has a known prolapse. During today's session we worked with 10cc water filled rectal balloon for sensorimotor biofeedback with her sitting on the commode. She is independent with the balloon with minimal cues. She did not feel discomfort when she inserted the balloon standing up. We focused on establishing optimal pelvic fl oor relaxation prior to expulsion attempt, and instruction on the stages of dynamic pelvic floor release. She tractioned the balloon independently and could feel it moving down. She felt OK until several minutes into tractioning the balloon she got the sick feeling, but ignored it and continued tractioning. I explained that when some people diaphragmatically breath and relax the pelvic floor they canfeel their inhale down to the rectal opening, which she did not. With no more cuing she easily released/pulled through the balloon with minimal traction. She reviewed written home instructions for continuing to work with the balloon and questions answered. Working with the rectal balloon, she will start with 10cc and gradually increase the amount. This concludes the Evacuation disorders program for Mrs Adames. She has worked hard and pushed through her discomfort to continue working on what she has learned. We suspect she had a flare ofher central sensitization syndrome during this two weeks. Towards the program she was able to have two more normal BMs associated with a true rectal urge. In the past she often got false signals that there was stool in her rectum and she would strain to try to get it out. Now she does not strain. Sometimes she splints in her vagina to see if she feels stool in the rectum rather than relying on feeling inside the rectum alone. I have wondered if she has other prolapse going on because she experiences significantly uncomfortable sensations when sitting on the commode working with the rectal balloon. She is scheduled for a MR proctogram January 20. Program goals 1, 2, 3, 5 and 6 from my note dated 12/08/17 are met and ongoing. Goal 4 is partially met and ongoing. Yaz will give me weekly updates onher progress. Elida Garcia R.N. 12/19/2017 10:20 AM documented in this encounter Plan of Treatment Not on filedocumented as of this encounter Visit Diagnoses Diagnosis Dysfunction Pelvic Floor Female documented in this encounter Additional Health Concerns Assessment Noted Time PHQ-9 Depression Total Score: 5 04/29/2016 10:10 AM CS T documented as of this encounter
--- OUTSIDE RECORDS SUMMARY | 2022-01-12 12:35 | XMS_ITS | Encounter Summary ---
:1955 Author Organization [facility] Address [address] [place] [address] Care Team Providers Name Role Phone Unavailable Primary Care Provider Unavailable Reason for Visit Appointment Request (Routine) - Canceled Specialty Diagnoses / Procedures Referred By Contact Refer red To Contact Henry Alfaro M. B.B.S. [address] [place] [phone] Referral ID Status Reason Start Date Expiration Date Visits V isits Requested Authorized [id number] Canceled 10/06/2017 10/06/2018 1 Encounter Details Date Type Department Care Team Description 12/09/2017 Nurse Only Department of Physical Henry Alfaro M.B.B.S. [address] [place] [phone] Medicine and Rehabilitation in Elida Garcia R.N. [address] [place] [address] [phone] [place], [place] [address] [place] [address] [phone] Social History Tobacco Use Types Packs/Day [...] do you attend rastafari or Never 2021 confucianist services? Do you belong to any clubs or Yes 12/12/2021 organizations such as rastafari groups, unions, fraMobi or athletic groups, or school groups? How [...] or slept in a custodial (including now)? Sex Assigned at Date Recorded Female 07/21/2017 2:58 PM CDT documented as of this encounter Progress Notes Elida Garcia, RCandyN. - 12/09/2017 8:00 AM CDT SUBJECTIVE REQUESTING PROVIDER Henry Alfaro M.B.BCandyS. CHIEF COMPLAINT/REASON FOR VISIT Chronic constipation with some expelling difficulties. Pelvic floor dyssynergia. Evacuation Disorders Program for pelvic floor muscle retraining. ASSESSMENT / PLAN During today's first session we used the TTL rectal sensor for anorectal biofeedback. With the patient side-lying, baseline EMG levels were elevated but a little better than yesterday at 3.3 microvolt(s). (Desired relaxation level is one microvolt or less). The primary focus of this session was optimal pelvic floor relaxation. She initially started to relax down to 2.4 mvs then EMG activity increasedto 3.3 to 3.9 mvs. She was not aware of a change in the outlet muscles but did start to feel an urgefor a BM. The urge became stronger so we stopped biofeedback and she went to the bathroom. When she returned she describes a feeling like her rectum is full of stool with hard stool at the opening. Sheinitially relaxed on the toilet then strained and could not expel any stool. The same thing happenedyesterday, she felt an urge but couldn't go. Her last decent BM was 3 days ago. She has been taking MiraLAX every day. Discussed her toileting again and focusing on outlet relaxation and diaphragmatic breathing. If that doesn't help she will return to the hotel and do a glycerin suppository. On anorectal manometry testing she had decreased rectal sensation in that a strong urge/discomfort was not detected. Elida Garcia R.N. documented in this encounter Plan of Treatment Not on filedocumented as of this encounter Visit Diagnoses Diagnosis Dysfunction Pelvic Floor Female documented in this encounter Additional Health Concerns Assessment Noted Time PHQ-9 Depression Total Score: 5 04/29/2016 10:10 AM CS T documented as of this encounter
--- OUTSIDE RECORDS SUMMARY | 2022-01-12 12:35 | XMS_ITS | Encounter Summary ---
:1955 Author Organization [facility] Address [address] [place] [address] Care Team Providers Name Role Phone Unavailable Primary Care Provider Unavailable Reason for Visit Appointment Request (Routine) - Canceled Specialty Diagnoses / Procedures Referred By Contact Refer red To Contact Henry Alfaro M. B.B.S. [address] [place] [address] [phone] Referral ID Status Reason Start Date Expiration Date Visits V isits Requested Authorized [id number] Canceled 10/06/2017 10/06/2018 1 Encounter Details Date Type Department Care Team Description 12/09/2017 Nurse Only Department of Physical Henry Alfaro M.B.B.S. [address] [place] [phone] Medicine and Rehabilitation in Elida Garcia R.N. [address] [place] [address] [phone] [place], [place] [address] [place] [address] [phone] Social History Tobacco Use Types Packs/Day [...] do you attend yazidism or Never 2021 methodist services? Do you belong to any clubs or Yes 12/12/2021 organizations such as yazidism groups, unions, fraAgFlow or athletic groups, or school groups? How [...] Progress Notes Elida Garcia, RCandyN. - 12/09/2017 2:00 PM CDT SUBJECTIVE REQUESTING PROVIDER Henry Alfaro M.B.BCandyS. CHIEF COMPLAINT/REASON FOR VISIT Chronic constipation with some expelling difficulties. Pelvic floor dyssynergia. Evacuation Disorders Program for pelvic floor muscle retraining. PHYSICAL EVALUATION This session we began working with the rectal balloon equipment. Began with assessment and patient education regarding rectal sensations and definition of urge. Patient position: Side-lying. Yaz felt an urge with the presence of the empty balloon in her rectum. That feeling subsided after a minute. Minimum sensory threshold with fast air-fills of the balloon: 5 cc. Volume discrimination with fast fills (differential of 10cc or less): She could feel that the 15 cc balloon was bigger than the 5 cc balloon but she began to experience much discomfort, some in the rectal area and some in the very low abdomen. We waited and the sensation only subsided slightly. She was agreeable to me doing a digital rectal check to see if her rectum was full of stool. Initialinsertion of my finger tip caused discomfort although insertion was easy. After several seconds thatsubsided and I advanced my finger further. I could feel something soft in her rectum but can not distinguish if it was stool or tissue. There was no stool on the glove. We stopped the assessment. She will do a bisacodyl suppository this evening and we will see if things feel different to her tomorrow when her rectum is more empty of stool. Elida Garcia R.N. 12/09/2017 2:51 PM documented in this encounter Plan of Treatment Not on filedocumented as of this encounter Visit Diagnoses Diagnosis Dysfunction Pelvic Floor Female documented in this encounter Additional Health Concerns Assessment Noted Time PHQ-9 Depression Total Score: 5 04/29/2016 10:10 AM CS T documented as of this encounter
--- OUTSIDE RECORDS SUMMARY | 2022-01-12 12:35 | XMS_ITS | Encounter Summary ---
:1955 Author Organization [facility] Address [address] [place] [address] Care Team Providers Name Role Phone Unavailable Primary Care Provider Unavailable Encounter Details Date Type Department Care Team Description 01/01/2018 Clinical Communication Department of Physical Richard, I[facility] in [address] [place] [address] [place] [phone] [place] [phone] Social History Tobacco Use Types Packs/Day Years [...] do you attend caodaism or Never 2021 faith services? Do you [...] Notes Telephone Encounter - Ida Burger - 01/01/2018 11:42 AM CDT Elida, Can you please call Mrs. Adames when you get back next week. Thank you- Ida documented in this encounter Plan of Treatment Not on filedocumented as of this encounter Visit Diagnoses Not on filedocumented in this encounter Additional Health Concerns Assessment Noted Time PHQ-9 Depression Total Score: 5 04/29/2016 10:10 AM CS T documented as of this encounter
--- OUTSIDE RECORDS SUMMARY | 2022-01-12 12:35 | XMS_ITS | Encounter Summary ---
:1955 Author Organization [facility] Address [address] [place] [address] Care Team Providers Name Role Phone Unavailable Primary Care Provider Unavailable Reason for Visit Appointment Request (Routine) - Canceled Specialty Diagnoses / Procedures Referred By Contact Refer red To Contact Henry Alfaro M. B.B.S. [address] [place] [phone] Referral ID Status Reason Start Date Expiration Date Visits V isits Requested Authorized [id number] Canceled 10/06/2017 10/06/2018 1 Encounter Details Date Type Department Care Team Description 12/12/2017 Nurse Only Department of Physical Henry Alfaro M.B.B.S. [address] [place] [phone] Medicine and Rehabilitation in Elida Garcia R.N. [address] [place] [address] [phone] [place], [place] [address] [place] [address] [phone] Social History Tobacco Use Types Packs/Day [...] or relatives? How often do you attend shinto or Never 2021 amish services? Do you belong to any clubs or Yes 12/12/2021 organizations such as shinto groups, unions, fraDrizly or athletic groups, or school groups? How [...] Progress Notes Elida Garcia, RCandyN. - 12/12/2017 8:00 AM CDT SUBJECTIVE REQUESTING PROVIDER Henry Alfaro M.B.BCandyS. CHIEF COMPLAINT/REASON FOR VISIT Chronic constipation with some expelling difficulties. Pelvic floor dyssynergia. Evacuation Disorders Program for pelvic floor muscle retraining. ASSESSMENT / PLAN Yaz sent me a message last evening that the sick feeling stayed with her several hours after our last biofeedback session. She toilets but no BM. She did a glycerin suppository without results. She can feel there is something low in the rectum but can't get it out. Will discuss her doing a bisacodyl suppository this weekend. I will see about getting an order for a MR proctogram. During today's first session we used the TTL rectal sensor for anorectal biofeedback. With the patient side-lying, initial baseline EMG levels were elevated to 3.3 microvolt(s). (Desired relaxation level is one microvolt or less). The primary focus of this session was optimal pelvic floor relaxation. As Yaz achieved pelvic floor relaxation she began to have more of a rectal urge and sick feeling. She says there is a little nausea. I verbally cued her on relaxing the low abdominal area where she sometimes feel discomfort. She was able to relax down to 1.2 to 2.1 mvs and with cuing identified feeling more open at the vaginal area. She felt relaxation and an urge in the rectal area. We stopped thesession so she could toilet and try for a BM again. I see Dr Alfaro ordered a MR proctogram so I will follow up on that. Elida Garcia R.N. documented in this encounter Plan of Treatment Not on filedocumented as of this encounter Visit Diagnoses Diagnosis Dysfunction Pelvic Floor Female documented in this encounter Additional Health Concerns Assessment Noted Time PHQ-9 Depression Total Score: 5 04/29/2016 10:10 AM CS T documented as of this encounter
--- OUTSIDE RECORDS SUMMARY | 2022-01-12 12:35 | XMS_ITS | Encounter Summary ---
:1955 Author Organization [facility] Address [address] [place] [address] Care Team Providers Name Role Phone Unavailable Primary Care Provider Unavailable Encounter Details Date Type Department Care Team Description 12/03/2017 Clinical Communication Department of Physical Richard, Ida Medicine and K Rehabilitation in [address] [place] [address] [place] [phone] [place] [phone] Social History Tobacco Use Types Packs/Day Years [...] do you attend baptism or Never 2021 hinduism services? Do you belong to any clubs [...] or slept in a penitentiary (including now)? Sex Assigned at Date Recorded Female 07/21/2017 2:58 PM CDT documented as of this encounter Plan of Treatment Not on filedocumented as of this encounter Visit Diagnoses Not on filedocumented in this encounter Additional Health Concerns Assessment Noted Time PHQ-9 Depression Total Score: 5 04/29/2016 10:10 AM CS T documented as of this encounter
--- OUTSIDE RECORDS SUMMARY | 2022-01-12 12:35 | XMS_ITS | Encounter Summary ---
:1955 Author Organization [facility] Address [address] [place] [address] Care Team Providers Name Role Phone Unavailable Primary Care Provider Unavailable Reason for Visit Appointment Request (Routine) - Canceled Specialty Diagnoses / Procedures Referred By Contact Refer red To Contact Henry Alfaro M. B.B.S. [address] [place] [phone] Referral ID Status Reason Start Date Expiration Date Visits V isits Requested Authorized [id number] Canceled 10/06/2017 10/06/2018 1 Encounter Details Date Type Department Care Team Description 12/16/2017 Nurse Only Department of Physical Henry Alfaro M.B.B.S. [address] [place] [phone] Medicine and Rehabilitation in Elida Garcia R.N. [address] [place] [address] [phone] [place], [place] [address] [place] [address] [phone] Social History Tobacco Use Types Packs/Day [...] or relatives? How often do you attend yazidi or Never 2021 sikh services? Do you belong to any clubs or Yes 12/12/2021 organizations such as yazidi groups, unions, fraSentry Wireless or athletic groups, or school groups? How [...] encounter Progress Notes Elida Garcia RCandyN. - 12/16/2017 3:00 PM CDT SUBJECTIVE REQUESTING PROVIDER Henry Alfaro M.B.B.S. CHIEF COMPLAINT/REASON FOR VISIT Chronic constipation with some expelling difficulties. Pelvic floor dyssynergia. Evacuation Disorders Program for pelvic floor muscle retraining. ASSESSMENT / PLAN Yaz had a good bowel movement between sessions. She felt an urge and toileted. She focused on what she has learned in this program. She did not need to strain but she continues to splint the rectocele. The BM was a good amount and only caused a little of the usual discomfort associated with BMs. However, afterwards, she believes due to the central sensitization syndrome, she began to hurt all overincluding her back and head. She and I are pleased with the BM. She has decided to do the MR proctogram when it is scheduled in January. We discussed her followingup with a doctor for those results. During today's second session we worked with the 20cc water filled rectal balloon for sensorimotor biofeedback with her sitting on the commode. We focused on establishing optimal pelvic floor relaxation prior to expulsion attempt and instruction on the stages of dynamic pelvic floor release. She continues with good initial pelvic floor relaxation as I gently traction the balloon, simulating rectal filling. I verbally cued her on previous strategies used to relax and open the rectal outlet muscles. The 20cc balloon was released/pulled through with minimal traction. She did experience more discomfortafter the balloon was out. Elida Garcia R.N. 12/16/2017 3:15 PM documented in this encounter Plan of Treatment Not on filedocumented as of this encounter Visit Diagnoses Diagnosis Dysfunction Pelvic Floor Female documented in this encounter Additional Health Concerns Assessment Noted Time PHQ-9 Depression Total Score: 5 04/29/2016 10:10 AM CS T documented as of this encounter
--- OUTSIDE RECORDS SUMMARY | 2022-01-12 12:35 | XMS_ITS | Encounter Summary ---
:[address] [facility] Address [address] [place] [address] Care Team Providers Name Role Phone Unavailable Primary Care Provider Unavailable Reason for Visit Appointment Request (Routine) - Canceled Specialty Diagnoses / Procedures Referred By Contact Refer red To Contact Henry Alfaro M. B.B.S. [address] [place] [phone] Referral ID Status Reason Start Date Expiration Date Visits V isits Requested Authorized [id number] Canceled 10/06/2017 10/06/2018 1 Encounter Details Date Type Department Care Team Description 12/10/2017 Nurse Only Department of Physical Henry Alfaro M.B.B.S. [address] [place] [phone] Medicine and Rehabilitation in Elida Garcia R.N. [address] [place] [address] [phone] [place], [place] [address] [place] [address] [phone] Social History Tobacco Use Types Packs/Day [...] do you attend evangelical or Never 2021 restorationism services? Do you belong to any clubs or Yes 12/12/2021 organizations such as evangelical groups, unions, fraKnCMiner or athletic groups, or school groups? How [...] encounter Progress Notes Elida Garcia, RCandyN. - 12/10/2017 11:00 AM CDT SUBJECTIVE REQUESTING PROVIDER Henry Alfaro M.B.BCandyS. CHIEF COMPLAINT/REASON FOR VISIT Chronic constipation with some expelling difficulties. Pelvic floor dyssynergia. Evacuation Disorders Program for pelvic floor muscle retraining. ASSESSMENT / PLAN During today's second session we used the TTL rectal sensor for anorectal biofeedback. Yaz inserted the rectal sensor with verbal instructions. With the patient sitting on the commode chair, baseline EMG levels were elevated to 2.1 microvolt(s). (Optimal pelvic floor relaxation with decreased sphincter tone is considered less than 0.4 mvs.) The primary focus of this session was optimal pelvic floor relaxation. I verbally cued her on anterior and posterior pelvic floor relaxation, and the droppingsensation some people feel when the pelvic floor relaxes. She was able to relax down to a very good 0.3 to 0.4 mvs which felt OK to her. She did not experience any discomfort. I explained that the pelvic floor muscles should be optimally relaxed throughout the day. Yaz will work with the loMagiq EMGbiofeedback equipment on her own this evening. She demonstrates independence with the equipment. Elida Garcia R.N. documented in this encounter Plan of Treatment Not on filedocumented as of this encounter Visit Diagnoses Diagnosis Dysfunction Pelvic Floor Female documented in this encounter Additional Health Concerns Assessment Noted Time PHQ-9 Depression Total Score: 5 04/29/2016 10:10 AM CS T documented as of this encounter
--- OUTSIDE RECORDS SUMMARY | 2022-01-12 12:35 | XMS_ITS | Encounter Summary ---
:1955 Author Organization [facility] Address [address] [place] [address] Care Team Providers Name Role Phone Unavailable Primary Care Provider Unavailable Encounter Details Date Type Department Care Team Description 01/20/2018 Hospital Encounter Department of Dominic, Henry Incont inence Fecal Radiology, [facility] [address] [place] [id number] [place], [place] [phone] (Work) [phone] Social History Tobacco Use Types Packs/Day Years [...] or relatives? How often do you attend moravian or Never 2021 roman catholic services? Do you belong to any clubs or Yes 12/12/2021 organizations such as moravian groups, unions, fraternal or athletic groups, or [...] 0 04/17 100 mg capsule mouth daily. FSH/FLX/PRIM/CUR/BOR/OM3,6 Take 1 capsule by 0 ,9 5 (OMEGA 3-6-9 FATTY mouth daily. ACIDS ORAL) hydroCHLOROthiazide Take 25 mg by 0 12/09/2016 [...] by mouth 2 (two) times a day. venlafaxine XR (EFFEXOR Take 1 capsule by 0 03/19 XR) 150 mg 24 hr capsule mouth daily. With 75 mg capsule = 225 mg total dose VOLTAREN 1 % gel Apply 4 g 0 12/05/2016 topically 4 (four) times a day as needed. acyclovir (for_ZOVIRAX) Take by mouth as 0 200812/24/2021 200 mg capsule needed. CALCIUM CARBONATE/VITAMIN Take 1 tablet by 0 /05/201412/18/2021 D3 (CALCIUM WITH VITAMIN D mouth 3 (three) ORAL) times a day. CONTOUR NEXT LEV 2 CONTROL U UTD 0 7 12/24/2021 JONNY solution CONTOUR NEXT STRIPS strips 2 (two) times a 3 11/201712/24/2021 day. for testing loratadine (for_CLARITIN) Take 1 tablet by 0 09/1512/27/2021 10 mg tablet mouth daily. MICROLET LANCET misc 2 (two) times a 3 04/04/2017 12/24/2021 day. for testing pregabalin (LYRICA) 50 mg Take 1 capsule [...] as needed. documented as of this encounter Progress Notes Henry Alfaro M.B.B.S. - 01/20/2018 11:59 PM CST There was no evidence of rectocele or cystocele on th MR proctogram which is reassuring. No evidenceof pelvic floor weakness and the sphincters appear normal. However she continues to have paradoxicalcontraction of the puborectalis reflective of underlying pelvic floor dysfunction. I spoke with Elida Garcia in PM&R as she worked with [facility] for 2 weeks. Elida will reach out to [facility] to discuss further strategies. No additional testing needed for now. TITATIVE CONSULTANT documented in this encounter Nursing Notes Ida Torrez R.N. - 01/20/2018 8:10 AM CST * If also ordered with Glucagon, perform that screening as well. Does patient have an allergy or sensitivity to Lidocaine or other amide-type (Prilocaine, Mepivacaine, Bupivacaine, Levobupivacaine, Articaine, Ropivacaine) local anesthetics? No If no... continue Does patient have a latex allergy? No If no, administer as ordered and outlined in medication reference document. TITATIVE CONSULTANT Ida Torrez R.N. - 01/20/2018 8:10 AM CST Does patient have known or suspected rectal perforation? No If no???continue Has patient had past rectal surgeries? No If no???continue Prepare and administered as ordered and outlined in medication reference document. TITATIVE CONSULTANT documented in this encounter Plan of Treatment Not on filedocumented as of this encounter Procedures Procedure Name Priority Date/Time Associated Comments Diagnosis MR PROCTOGRAM RAD - Routine 01/20/2018 9:29 Incontinence Fecal Resu lts for this DYNAMIC AND (most inpatients AM QUANTITATIVE CONSULTANT procedure a re in SPHINCTER EVAL and all the results WITHOUT IV outpatients) section. CONTRAST documented in this encounter Results MR Proctogram Dynamic and Sphincter Eval without IV Contrast (01/20/2018 9:29 AM QUANTITATIVE CONSULTANT) Anatomical Region Laterality Modality Abdomen, Pelvis, Abdominal RST LOS, Abdominal ARZ LOS, N/A Magnetic Resonance Abdominal FLA LOS Specimen (Source) Anatomical Collection Method Collection Time Re ceived Time Location / / Volume Laterality 01/20/2018 2:31 PM QUANTITATIVE CONSULTANT Impressions 01/20/2018 2:48 PM QUANTITATIVE CONSULTANT IMPRESSION: ?? 1. Abnormal defecation with paradoxical contraction of the puborectalis during attempted evacuation. 2. No MRI findings of pelvic floor weakn ess. 3. Normal MRI appearance of the anal sph incters. Narrative 01/20/2018 2:48 PM QUANTITATIVE CONSULTANT EXAM: ??MR PROCTOGRAM DYNAMIC AND SPHINCTER EVAL [...] appearance of the anal sph incters. Henry Noriega [facility] MRI PROCEDURES documented in this encounter Visit Diagnoses Diagnosis Incontinence Fecal documented in this encounter Administered Medications Inactive Administered Medications - up to 3 most recent administrations Medication Order MAR Action Action Date Dose Rate Site lidocaine HCl 2 % topical Given 01/20/2018 8:15 AM QUANTITATIVE CONSULTANT 1 applica tion jelly 1 application (UROJET) 1 application (5 mL), rectal, Once, On Fri01/20/18 at 0830, For 1 dose, Imaging Protocol Orders ultrasound gel topical gel 60-180 mL Given 01/20/2018 8:45 AM QUANTITATIVE CONSULTANT 180 mL 60-180 mL, rectal, Once, On Fri01/20/18 at 0830, For 1 dose, Imaging Protocol Orders, Dose per Radiant Medication Guidelines documented in this encounter Additional Health Concerns Assessment Noted Time PHQ-9 Depression Total Score: 5 04/29/2016 10:10 AM CS T documented as of this encounter
--- OUTSIDE RECORDS SUMMARY | 2022-01-12 12:35 | XMS_ITS | Encounter Summary ---
:1955 Author Organization [facility] Address [address] [place] [address] Care Team Providers Name Role Phone Unavailable Primary Care Provider Unavailable Reason for Visit Appointment Request (Routine) - Canceled Specialty Diagnoses / Procedures Referred By Contact Refer red To Contact Henry Alfaro M. B.B.S. [address] [place] [phone] Referral ID Status Reason Start Date Expiration Date Visits V isits Requested Authorized [id number] Canceled 10/06/2017 10/06/2018 1 Encounter Details Date Type Department Care Team Description 12/10/2017 Nurse Only Department of Physical Henry Alfaro M.B.B.S. [address] [place] [phone] Medicine and Rehabilitation in Elida Garcia R.N. [address] [place] [address] [phone] [place], [place] [address] [place] [address] [phone] Social History Tobacco Use Types Packs/Day [...] do you attend shinto or Never 2021 jew services? Do you belong to any clubs or Yes 12/12/2021 organizations such as shinto groups, unions, fraAppfolio or athletic groups, or school groups? How [...] encounter Progress Notes Elida Garcia RCandyN. - 12/10/2017 8:00 AM CDT SUBJECTIVE REQUESTING PROVIDER Henry Alfaro M.B.BCandyS. CHIEF COMPLAINT/REASON FOR VISIT Chronic constipation with some expelling difficulties. Pelvic floor dyssynergia. Evacuation Disorders Program for pelvic floor muscle retraining. ASSESSMENT / PLAN Yaz did a bisacodyl suppository last evening as we discussed and it gave her the usual pain and discomfort but she does not describe it as cramping. She had large results initially liquid, ending with Stephenson Type 3. She did not need to strain. She is agreeable to continuing the rectal sensory assessment with a rectal balloon this morning. We started the assessment yesterday which she could not tolerate which I thought might be due to a rectum full of stool. With her lying on her left side I inserted the empty balloon which she tolerated. On slow fill with air she felt a change at 5cc which is early to normal. I continued on with slow fill of air looking for an urge feeling. At 40cc she began to have the sick feeling she got yesterday when we started wor tio with the rectal balloon. She describes a vague sensation very low in the abdomen, higher insideher than the vaginal area. She gets this feeling when she does suppositories but not as bad when sheuses glycerin suppositories. This discomfort has been for about a year. I cued her on diaphragmatic breathing and thinking about relaxing the area that hurts but the pain/discomfort increased and the balloon was emptied and removed. She also experienced right sided hip discomfort which she also had yesterday. She says the anorectal manometry testing was also very painful which is not noted in the record. 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 I will discuss my findings with her GI doctor. Elida Garcia R.N. 12/10/2017 8:36 AM documented in this encounter Plan of Treatment Not on filedocumented as of this encounter Visit Diagnoses Diagnosis Dysfunction Pelvic Floor Female documented in this encounter Additional Health Concerns Assessment Noted Time PHQ-9 Depression Total Score: 5 04/29/2016 10:10 AM CS T documented as of this encounter
--- OUTSIDE RECORDS SUMMARY | 2022-01-12 12:36 | XMS_ITS | Encounter Summary ---
:1955 Author Organization [facility] Address [address] [place] [address] Care Team Providers Name Role Phone Unavailable Primary Care Provider Unavailable Reason for Visit Reason Comments Follow-up Encounter Details Date Type Department Care Team Description 07/21/2017 Office Visit Division of Haroon Engel Diabetes Mellambar us Type 2 (HCC) (Primary Dx); Endocrinology in [place] Guzman Diabetes Mellitus Type 2 With Diabetic N europathy (HCC) [place], [place] [address] [facility] [address] [place] [phone] Social History Tobacco Use Types Packs/Day Years Used Date Smoking Tobacco: Former Smokeless Tobacco: Never Alcohol Habits Answer Date Recorded How often [...] many times do you More than three yevtte es a week 12/12/2021 talk on the phone with family, friends, or neighbors? How often do you get together with friends More than three t imes a week 12/12/2021 or relatives? How often do you attend taoism or Never 2021 lutheran services? Do you [...] Sign Reading Time Taken Comments Blood Pressure 119/65 07/21/2017 3:11 PM CDT Pulse 67 07/21/2017 3:11 PM CDT Temperature - - Respiratory Rate - - Oxygen Saturation - - Inhaled Oxygen Concentration - - Weight 105 kg (230 lb 9.6 oz) 07/21/2017 3:11 PM CDT Height 178.4 cm (5' 10.24) 07/21/2017 3:11 PM CDT Body Mass Index 32.87 07/21/2017 3:11 PM CDT documented in this encounter Patient Instructions Patient InstructionsHaroon Engel M.D. - 07/21/2017 3:30 PM CDT Continue with efforts at diet and exercise Continue current dose of metformin. Have your local doctor check your lipids to determine if statin is needed (very likely) Follow up with local doctor in ~ 3 months. Annual eye exam Regular foot exam documented in this encounter Progress Notes Haroon Engel M.D. - 07/21/2017 3:30 PM CDT SUBJECTIVE CHIEF COMPLAINT / REASON FOR VISIT Yaz Adames is a 62 y.o. female who presents in follow up for diabetes mellitus. HISTORY OF PRESENT ILLNESS since she was last seen here she has continue with her efforts at diet and exercise and has done remarkably well. She has also been trying to eat healthier and since her last visit she has managed to lose another 9 kg bring her total weight loss in the past several months down to 35 lb. Her hemoglobin A1c checked locally about a month ago is down to 6.1%. She has been checking her blood sugars typically 4 times a day, in the morning before breakfast and before every meal and at bedtime. Her worst readings tend to be in the morning when they can occasionally be as high as 150 althoughthe majority tend to be in the 120-130s. The other times of the day her blood sugars typically rangebetween 100 and 120. She gets very few readings below 100. She is currently only taking metformin for her diabetes a 1000 mg twice daily. She also takes Lyrica for her neuropathy. Her only complaint isthat she feels her fever often cold and so she has to wear couple socks, but she has had no ulcers or any other kind of foot lesions. He does have somewhat reduced sensation in her feet She has not apparently had a lipid panel checked but she is currently not taking any statins OBJECTIVE PHYSICAL EXAM Constitutional: She appears well-developed and well-nourished. Eyes: EOM are normal. Pupils are equal, round, and reactive to light. Neck: Neck supple. No thyromegaly present. Cardiovascular: Normal rate, regular rhythm and normal heart sounds. She exhibits no edema. No murmur heard. Pulmonary/Chest: Breath sounds normal. Abdominal: Soft. She exhibits no mass. There is no tenderness. There is no guarding. Lymphadenopathy: She has no cervical adenopathy. Skin: Skin is warm and dry. Diagnostics hemoglobin A1c a month ago locally 6.1% ASSESSMENT / PLAN #1 Type 2 diabetes She is doing very well with regard to her diabetes with excellent glycemic control. I congratulated her on her efforts and encouraged her to continue to work with diet and exercise. She will stay on the current dose of metformin for the time being but if she were able to lose another 20 lb as he is her goal, she might be able to reduce the dose of metformin to 500 twice daily. I did recommend that she have a lipid screen done which she should have through her local primary care physician to determine if she should be on statin therapy as I suspect is the case. Complications: peripheral neuropathy Recommended changes:None Self-monitoring of blood glucose: daily Goal hemoglobin A1C: less than 7 Goal capillary plasma glucose: fasting and preprandial 100-140 mg/dL Frequency of hemoglobin A1C measurement: Every 6 months Frequency of eye exam: Yearly At this point patient can continued follow-up with a primary care provider. It was a pleasure to see her in participate in her care documented in this encounter Plan of Treatment Not on filedocumented as of this encounter Visit Diagnoses Diagnosis Diabetes Mellitus Type 2 (HCC) - Primary Diabetes Mellitus Type 2 With Diabetic N europathy (HCC) documented in this encounter Additional Health Concerns Assessment Noted Time PHQ-9 Depression Total Score: 5 04/29/2016 10:10 AM CS T documented as of this encounter
--- OUTSIDE RECORDS SUMMARY | 2022-01-12 12:36 | XMS_ITS | Encounter Summary ---
:1955 Author Organization [facility] Address [address] [place] [address] Care Team Providers Name Role Phone Unavailable Primary Care Provider Unavailable Encounter Details Date Type Department Care Team Description 09/23/2017 Hospital Encounter Department of Laboratory Juan Alfaro, [facility] [address] [place] [address] [place] [phone] [place] [phone] Social History Tobacco Use Types Packs/Day Years [...] do you attend tenriism or Never 2021 judaism services? Do you [...] Name Priority Date/Time Associated Diagnosis Comme nts THYROID FUNCTION Routine 09/23/2017 12:08 Constipation Results for this CASCADE, S PM CDT procedure are i n the results section. CALCIUM, TOT, S/P Routine 09/23/2017 12:08 Constipation Result s for this PM CDT procedure are i n the results section. documented in this encounter Results Calcium, Total (09/23/2017 12:08 PM CDT) athologist Signature Calcium, 9.8 8.8 - 10.2 09/23/2017 [facility] Total, S mg/dL 1:14 PM CDT [facility] Specimen Anatomical Collection Method Collection Time Receive d Time (Source) Location / / Volume Laterality Blood (Blood, 09/23/2017 12:08 09/23/2017 Venous) PM CDT 12:33 PM CDT Henry Humphreys.S. LAB BLOOD ADD-ON Performing Organization Address City/[facility] Phon e Number [facility] - [address] Thyroid Function [place] (09/23/2017 12:08 PM CDT) athologist Signature TSH, Sensitive 1.4 0.3 - 4.2 09/23/2017 [facility] mIU/L 1:14 PM CDT [facility] Specimen Anatomical Collection Method Collection Time Receive d Time (Source) Location / / Volume Laterality Blood (Blood, 09/23/2017 12:08 09/23/2017 Venous) PM CDT 12:33 PM CDT Henry LarryS. LAB BLOOD ADD-ON Performing Organization Address City/[facility] Phon e Number [facility] - [address] documented in this encounter Visit Diagnoses Diagnosis Constipation documented in this encounter Additional Health Concerns Assessment Noted Time PHQ-9 Depression Total Score: 5 04/29/2016 10:10 AM CS T documented as of this encounter
--- OUTSIDE RECORDS SUMMARY | 2022-01-12 12:36 | XMS_ITS | Encounter Summary ---
:1955 Author Organization [facility] Address [address] [place] [address] Care Team Providers Name Role Phone Unavailable Primary Care Provider Unavailable Reason for Visit Reason Comments Constipation being seen in [facility] Outpatient (Routine) - Closed Specialty Diagnoses / Referred By Referred To Cont act Procedures Contact Gastroenterology and Diagnoses Constipation Rectocele Other Specified Disorders Of Muscle [facility] [place] [address] [place] [id number] Referral ID Status Reason Start Date Expiration Date Visits Requ ested Visits Authorized [id number] Closed 09/02/2017 09/02/2018 1 1 Encounter Details Date Type Department Care Team Description 09/23/2017 Comprehensive Visit Division of Dago Emery M.D. [address] [place] [phone] Constipation (Primary Dx); Gastroenterology in [facility] berm[facility] M.B.BCandySCandy [address] [place] [phone] Rectocele; [place], [place] Other Specified Disorders Of Muscle; [address] [facility] [place] [phone] Social History Tobacco Use Types Packs/Day Years [...] do you attend muslim or Never 2021 jewish services? Do you belong to any clubs [...] documented as of this encounter Consult Notes Henry Alfaro M.B.B.S. - 09/23/2017 8:00 AM CDT SUBJECTIVE Yaz Adames is a 62 y.o. female who presents with longstanding symptoms of constipation with recent worsening. Mrs. Adames has had symptoms of constipation for most of her life. She was managing this byusing senna. She mentions that she had to slowly increase the dose of senna in order to be able to control her symptoms. However, last year she developed vaginal prolapse and noticed worsening of her symptoms. She had to support the vaginal vault with the fingers in order to push the stool out. She had to strain significantly to empty. She felt like there was a blockage in the anal canal. She had a pessary placed to help with the vaginal prolapse; however, this made her bowel movements worse. She had greater difficulty in evacuating. She would use a Dulcolax suppository, following which, she would have a 3- to 4-hour routine during which there would be significant pain and cramping and she could spend up to an hour on the toilet. She also noted a change in her bowel pattern with intermittent loose stools and hard stools. She had the pessary removed about 2 weeks back. She previously had stool which was 1 stool but now reports her stools are usually Bland type 6. She has tried other medications; however, she has not found them to be as effective as senna. She is currently using 3 tablets of senna with docusate in the morning as well as 3 tablets of just senna again once daily in the morning.In the past, she has tried docusate, MiraLAX, and Metamucil and did not feel those were helping withher symptoms. More recently, she was advised to use Milk of Magnesia, but she discontinued it due tothe taste as well as she was having more loose stools. She does report that the one thing which did help was massaging her abdomen and the breathing technique which was suggested by her reprographics technician. In addition to her difficulty with evacuation, she also complains of urinary frequency, which has been more recent. Her last colonoscopy was within the last 10 years, and she apparently did not have polyps on that colonoscopy. She does not have any family history of colon cancer and does not report any blood in her stool. She was recently seen by a pharmacy data analyst and was referred here for possible pelvic floor dysfunction. Mrs. Adames has multiple medical problems. She has had a longstanding history of neuropathy, and during this time she had pre diabetes and was subsequently diagnosed with diabetes in February 2017. She has made significant lifestyle changes andshe reportedly improved her hemoglobin A1c from 14 to 6.1. She also reports a 48-pound weight loss, which was intentional. She finds the peripheral neuropathy extremely debilitating as it makes it difficult for her to walk with loss of balance. She also has history of depression; however, she has found ways to cultivate lolis through behavioral as wellas spiritual routes. 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 She has embraced Nondenominational and feels this has helped significantly in her life. She also has a historyof hyperlipidemia and hypertension. She has a history of restless legs syndrome for which she uses pramipexole and venlafaxine. She has a history of thyroid nodules which have been monitored periodically. She has significant pain all over due to different reasons. She has chronic low back pain. She also has plantar fascitis along with neuropathy which makes the pain in her feet worse. She has reportedly developed arthritis in her hands and feet. She has had bilateral knee replacement and complains of bursitis, which has affected multiple different joints at different points. Obstetric history: Mrs. Adames does not have any biological children, although she does have stepchildren. The following portions of the patient's history were reviewed and updated as appropriate: allergies,current medication, family history, medical history, surgical history, social history, problem list. PAST MEDICAL/SURGICAL HISTORY: Patient Active Problem List Diagnosis ??? Pain Low Back ??? Spondylosis Lumbar Without Myelopathy ??? Depression Major Recurrent Partial Remission (HCC) ??? Diabetes Mellitus Type 2 (HCC) ??? Diabetes Mellitus Type 2 With Diabetic Neuropathy (HCC) ??? Tendonitis Achilles Right ??? Constipation ??? Prolapse Vaginal ??? Arthroplasty Total Knee Replacement Status Post Bilateral ??? Fasciitis Plantar ??? Bursitis ??? Osteoarthritis ??? Hypertension Essential Primary ??? Restless Leg Syndrome ??? Nodule Thyroid ??? Eczema MEDICATIONS: Current Outpatient Prescriptions: ??? acyclovir (for_ZOVIRAX) 200 mg capsule, Take by mouth., Disp: , Rfl: ??? CALCIUM CARBONATE/VITAMIN D3 (CALCIUM WITH VITAMIN D ORAL), Take 1 tablet by mouth 3 (three) times a day., Disp: , Rfl: ??? CONTOUR NEXT LEV 2 CONTROL JONNY solution, U UTD, Disp: , Rfl: 0 ??? CONTOUR NEXT STRIPS strips, 2 (two) times a day. for testing, Disp: , Rfl: 3 ??? FSH/FLX/PRIM/CUR/BOR/OM3,6,9 5 (OMEGA 3-6-9 FATTY ACIDS ORAL), Take 1 capsule by mouth daily., Disp: , Rfl: ??? hydroCHLOROthiazide (for_HYDRODIURIL) 25 mg tablet, , Disp: , Rfl: ??? IRON,CARBONYL/ASCORBIC ACID (VITRON-C ORAL), Take 1 tablet by mouth 2 (two) times a day., Disp: , Rfl: ??? loratadine (for_CLARITIN) 10 mg tablet, Take 1 tablet by mouth daily., Disp: , Rfl: ??? metFORMIN (for_GLUCOPHAGE) 500 mg tablet, , Disp: , Rfl: ??? MICROLET LANCET [facility], 2 (two) times a day. for testing, Disp: , Rfl: 3 ??? multivitamin tablet, multivitamin, Disp: , Rfl: ??? nystatin (for_MYCOSTATIN) 100,000 unit/gram cream, , Disp: , Rfl: ??? pramipexole (MIRAPEX) 0.125 mg tablet, Take 2 tablets by mouth daily., Disp: , Rfl: ??? pregabalin (LYRICA) 150 mg capsule, Take 1 capsule (150 mg total) by mouth 2 (two) times a day.,Disp: 60 capsule, Rfl: 5 ??? pregabalin (LYRICA) 50 mg capsule, Take [...] % cream, , Disp: , Rfl: ??? venlafaxine XR (EFFEXOR XR) 150 mg 24 hr capsule, Take 1 capsule by mouth daily., Disp: , Rfl: ??? VOLTAREN 1 % gel, , Disp: , Rfl: ??? UNABLE TO FIND, lidocaine/ketamine/ketoprofen 2.48 g-5.525 g-5.525 g/114 g topical cream See Instructions, apply twice daily, 60 gm, 5 Refill(s), Disp: , Rfl: ??? UNABLE TO FIND, Lidoderm Compound See Instructions, add 5% gabapentin to 30gm Lidoderm, 30 gm, 5Refill(s), Disp: , Rfl: SYSTEMS REVIEW: A complete ROS was completed with the pertinent positives noted in the HPI. SOCIAL HISTORY She is a past smoker and has a [id number] history of smoking. She used to smoke 1 pack a day and quit in 1986. She also has a history of alcohol use; she has been sober for 32 years. OBJECTIVE PHYSICAL EXAM: There were no vitals filed for this visit. General: Alert, oriented, in no acute distress. Eyes: Pupils equal, round, reactive. Extraocular muscles intact. No conjunctival icterus. ENT: Moist oral mucosa without lesions or erythema. Heart: Regular rate and rhythm. No murmurs, rub or gallop. Lungs: Clear to auscultation bilaterally. Abdomen: Soft, nondistended, nontender. Bowel sounds present. No organomegaly or masses. Rectal exam: Normal external appearance. Normal resting tone, squeeze, and paradoxical movement on bear down. Solid stool was palpated in the rectum. Psychiatric: Mood and affect congruent and appropriate. ASSESSMENT / PLAN #1 Chronic constipation, likely secondary to pelvic floor dysfunction Mrs. Adames's symptoms as well as exam are suggestive of pelvic floor dysfunction. Her longstanding history of constipation as well as straining is likely responsible for the development of prolapse. I think we need to first assess as well as treat pelvic floor dysfunction if present before considering any further evaluation or surgical options. I discussed this in detail with Mrs. Adames and explained the rationale behind this and she verbalized understanding. I will schedule an anorectal manometry to assess the pelvic floor function. I will see her back after the anorectal manometry and, if needed, we will have her evaluated in PM&R. I will also obtain a serum calcium and TSH as well as a KUB to assess the stool burden. We may need to consider an MR proctogram and a surgical consult in the future. I discussed lifestyle measure as well suggested use of MiraLAX to help withher symptoms. She consumes significant fiber in her diet. I also advised her to not strain and not spend too long on toilet. Mrs. Adames agrees with this plan. documented in this encounter Plan of Treatment Scheduled Orders Name Type Priority Associated Diagnoses Order S chedule Anorectal Manometry GI Routine Constipation Expected : 09/23/2017 (Approximate), Expires: 09/23/2020 Enema prep Procedures Routine Constipation Expected: 09/23 (Approximate), Expires: 09/23/2020 documented as of this encounter Results Calcium, Total (09/23/2017 12:08 PM CDT) athologist Signature Calcium, 9.8 8.8 - 10.2 09/23/2017 [facility] Total, S mg/dL 1:14 PM CDT [facility] Specimen Anatomical Collection Method Collection Time Receive d Time (Source) Location / / Volume Laterality Blood (Blood, 09/23/2017 12:08 09/23/2017 Venous) PM CDT 12:33 PM CDT Henry MuñozB.S. LAB BLOOD ADD-ON Performing Organization Address [facility] Phon e Number [facility] - [address] Thyroid Function [place] (09/23/2017 12:08 PM CDT) athologist Signature TSH, Sensitive 1.4 0.3 - 4.2 09/23/2017 [facility] mIU/L 1:14 PM CDT [facility] Specimen Anatomical Collection Method Collection Time Receive d Time (Source) Location / / Volume Laterality Blood (Blood, 09/23/2017 12:08 09/23/2017 Venous) PM CDT 12:33 PM CDT Henry MuñozB.S. LAB BLOOD ADD-ON Performing Organization Address City/[facility] Phon e Number [facility] - [address] documented in this encounter Visit Diagnoses Diagnosis Constipation - Primary Rectocele Other Specified Disorders Of Muscle Prolapse Vaginal documented in this encounter Additional Health Concerns Assessment Noted Time PHQ-9 Depression Total Score: 5 04/29/2016 10:10 AM CS T documented as of this encounter
--- OUTSIDE RECORDS SUMMARY | 2022-01-12 12:36 | XMS_ITS | Encounter Summary ---
:1955 Author Organization [facility] Address [address] [place] [address] Care Team Providers Name Role Phone Unavailable Primary Care Provider Unavailable Reason for Visit Reason Comments Constipation Encounter Details Date Type Department Care Team Description 09/23/2017 Clinical Support [facility] [address] [place] [phone] [place], [place] Maria Fernanda Torres R.N. [address] [place] [phone] [address] [place] [phone] Social History Tobacco Use Types Packs/Day [...] do you attend caodaism or Never 2021 mandaen services? Do you belong to any clubs [...] or slept in a residential (including now)? Sex Assigned at Date Recorded Female 07/21/2017 2:58 PM CDT documented as of this encounter Procedure Notes Maria Fernanda Torres R.N. 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 Enema administered by: RN Type of enema(s) administered: Fleet enema(s) administered 1 Time enema(s) administered: 1310 documented in this encounter Plan of Treatment Not on filedocumented as of this encounter Visit Diagnoses Diagnosis Constipation documented in this encounter Administered Medications Inactive Administered Medications - up to 3 most recent administrations Medication Order MAR Action Action Date Dose Rate Site sodium phosphates enema 1 enema Given 09/23/2017 1:20 PM CDT 1 e nema (FLEET) 1 enema, rectal, Once, On Fri09/23/17 at 1315, For 1 dose, Administer one hour before procedure., Indications: bowel evacuation documented in this encounter Additional Health Concerns Assessment Noted Time PHQ-9 Depression Total Score: 5 04/29/2016 10:10 AM CS T documented as of this encounter
--- OUTSIDE RECORDS SUMMARY | 2022-01-12 12:36 | XMS_ITS | Encounter Summary ---
:1955 Author Organization [facility] Address [address] [place] [address] Care Team Providers Name Role Phone Unavailable Primary Care Provider Unavailable Reason for Visit Reason Comments Med Refill Encounter Details Date Type Department Care Team Description 05/28/2017 Refill Department of Physical Medicine Vivek Man M.D. Med Refill and Rehabilitation in [address] [place], [place] [address] [place], [place] [phone] [place] [phone] Social History Tobacco Use Types Packs/Day Years Used Date Smoking Tobacco: Never Smokeless Tobacco: Never Alcohol Habits Answer Date [...] do you attend yarsani or Never 2021 jain services? Do you [...] or slept in a prison (including now)? Sex Assigned at Date Recorded Female 07/21/2017 2:58 PM CDT documented as of this encounter Plan of Treatment Not on filedocumented as of this encounter Visit Diagnoses Not on filedocumented in this encounter Additional Health Concerns Assessment Noted Time PHQ-9 Depression Total Score: 5 04/29/2016 10:10 AM CS T documented as of this encounter
--- OUTSIDE RECORDS SUMMARY | 2022-01-12 12:36 | XMS_ITS | Encounter Summary ---
:1955 Author Organization [facility] Address [address] [place] [address] Care Team Providers Name Role Phone Unavailable Primary Care Provider Unavailable Encounter Details Date Type Department Care Team Description 02/20/2017 Clinical Communication Department of Sleep Meghna Valdez, Medicine in Thee Farr M.D., [facility] [place] [address] [address] [place] [phone] Social History Tobacco Use Types Packs/Day Years [...] do you attend adventism or Never 2021 bahai services? Do you [...] this encounter Miscellaneous Notes Telephone Encounter - Maxine Valdez M.D., M.P.H. - 02/20/2017 11:32 AM CAMPUS REP ----- Message from Iona Coker sent at 02/20/2017 10:17 AM CAMPUS REP ----- Regarding: Referral Closed- Burton Adames Thank you for your referral to [facility]. We regret to inform you that our Psychiatry and Psychology Department reviewed this request and theyare unable to offer an appointment to your patient at this time. If you have specific questions regarding the reason we are unable to offer an appointment, please contact the Psychiatry and Psychology appointment office directly at . For any other questions or concerns, please call us at or [phone]. You may also reply to this message if you have questions. Sincerely, [facility] for Referring Physicians Appointment Office US REP documented in this encounter Plan of Treatment Not on filedocumented as of this encounter Visit Diagnoses Not on filedocumented in this encounter Additional Health Concerns Assessment Noted Time PHQ-9 Depression Total Score: 5 04/29/2016 10:10 AM CS T documented as of this encounter
--- OUTSIDE RECORDS SUMMARY | 2022-01-12 12:36 | XMS_ITS | Encounter Summary ---
:1955 Author Organization [facility] Address [address] [place] [address] Care Team Providers Name Role Phone Unavailable Primary Care Provider Unavailable Encounter Details Date Type Department Care Team Description 09/23/2017 Hospital Encounter Division of Henry Alfaro Gastroenterology in , M.B.B.S. [place], [place] [address] [facility] [address] [place] [phone] Social History Tobacco Use Types Packs/Day Years [...] or relatives? How often do you attend protestant or Never 2021 mormon services? Do you belong to any clubs or Yes 12/12/2021 organizations such as protestant groups, unions, fraternal or athletic groups, or [...] of this encounter Plan of Treatment Scheduled Orders Name Type Priority Associated Diagnoses Order S chedule Anorectal Manometry GI Routine Constipation Once for 1 Occurrences starting 2017 until 09/23/2017 documented as of this encounter Visit Diagnoses Diagnosis Constipation documented in this encounter Additional Health Concerns Assessment Noted Time PHQ-9 Depression Total Score: 5 04/29/2016 10:10 AM CS T documented as of this encounter
--- OUTSIDE RECORDS SUMMARY | 2022-01-12 12:36 | XMS_ITS | Encounter Summary ---
:1955 Author Organization [facility] Address [address] [place] [address] Care Team Providers Name Role Phone Unavailable Primary Care Provider Unavailable Encounter Details Date Type Department Care Team Description 09/24/2017 Clinical Communication Division of Haroon Engel Endocrinology in [place] Gu[place]man [place], [place] [address] [facility] [address] [place] [phone] Social History Tobacco Use Types Packs/Day Years [...] do you attend bahai or Never 2021 caodaism services? Do you [...] this encounter Miscellaneous Notes Telephone Encounter - Maria Fernanda Del Rio - 09/24/2017 9:05 AM CDT S: Caller/Dept - Mrs. Adames Phone # - [phone] B: Patient was last seen on : July 21 A: Patient has a bad nail on the big toe on left foot and she would like to have it partially removed. Her primary is away and she needs it done jose, today if possible R: Please advise if OK and if you will be sending orders/ PAC to contact patient Thank you Maria Fernnada Respond back to P RST END Scheduling documented in this encounter Plan of Treatment Not on filedocumented as of this encounter Visit Diagnoses Diagnosis Diabetes Mellitus Type 2 (HCC) - Primary documented in this encounter Additional Health Concerns Assessment Noted Time PHQ-9 Depression Total Score: 5 04/29/2016 10:10 AM CS T documented as of this encounter
--- OUTSIDE RECORDS SUMMARY | 2022-01-12 12:36 | XMS_ITS | Encounter Summary ---
:1955 Author Organization [facility] Address [address] [place] [address] Care Team Providers Name Role Phone Unavailable Primary Care Provider Unavailable Encounter Details Date Type Department Care Team Description 01/30/2017 Orders Only Department of Neurology Meghna Valdez, Apnea Sleep Obstructive (Primary Dx); in [facility] karthik Pruett, M.P.H. Hypersomnia; [address] Insomnia; [place], [place] Diabetes Melli [facility] Type 2 With Diabetic Neuropathy (HCC); [id number] Abnormal Magnetic Resonance Imaging Brai n [phone] Social History Tobacco Use Types Packs/Day Years [...] do you attend tenriism or Never 2021 jew services? Do you [...] or slept in a usp (including now)? Sex Assigned at Date Recorded Female 07/21/2017 2:58 PM CDT documented as of this encounter Plan of Treatment Not on filedocumented as of this encounter Visit Diagnoses Diagnosis Apnea Sleep Obstructive - Primary Hypersomnia Insomnia Diabetes Mellitus Type 2 With Diabetic N europathy (HCC) Abnormal Magnetic Resonance Imaging Brai n documented in this encounter Additional Health Concerns Assessment Noted Time PHQ-9 Depression Total Score: 5 04/29/2016 10:10 AM CS T documented as of this encounter
--- OUTSIDE RECORDS SUMMARY | 2022-01-12 12:36 | XMS_ITS | Encounter Summary ---
:1955 Author Organization [facility] Address [address] [place] [address] Care Team Providers Name Role Phone Unavailable Primary Care Provider Unavailable Reason for Referral Medication Prior Authorization (Routine) - Closed Specialty Diagnoses / Procedures Referred By Contact Refer red To Contact Vivek Man M. D. [address] [facility] [place], [place] [address] Referral ID Status Reason Start Date Expiration Date Visits Requ ested Visits Authorized [id number] Closed Encounter Details Date Type Department Care Team Description 07/29/2017 Comprehensive Visit Department of Vivek Man nitis Achilles Right (Primary Dx); Sports Medicine lee ann Cid M.D. Pain Low Back; [place] [address] [place] Primary Osteoar thritis Lumbar Spine [facility], [address] [place] [phone] Social History Tobacco Use Types Packs/Day Years [...] do you attend confucianism or Never 2021 scientology services? Do you [...] place to sleep or slept in a nursing home (including now)? Sex Assigned at Date Recorded Female 07/21/2017 2:58 PM CDT documented as of this encounter Last Filed Vital Signs Vital Sign Reading Time Taken Comments Blood Pressure 136/71 07/29/2017 3:43 PM CDT Pulse - - Temperature - - Respiratory Rate - - Oxygen Saturation - - Inhaled Oxygen Concentration - - Weight 106 kg (233 lb 11 oz) 07/29/2017 3:43 PM CDT Height 175.8 cm (5' 9.21) 07/29/2017 3:43 PM CDT Body Mass Index 34.3 07/29/2017 3:43 PM CDT documented in this encounter Progress Notes Vivek Man M.D. - 07/29/2017 12:00 AM CDT SUBJECTIVE CHIEF COMPLAINT/REASON FOR VISIT Followup: Right posterior heel pain, neck pain, and low back pain. HISTORY OF PRESENT ILLNESS Ms. Adames returns today. Since I last saw her, she has been going to physical therapy. Shereports that she does feel that it has been helpful, although she continues to have pain that is located in the posterior aspect of her right heel, and it can occasionally radiate to the medial and lateral aspects of her ankle as well. The pain is worse when she is standing or walking, although it canbe present and to some extent at all times. She denies any swelling, warmth, or erythema about the Achilles. She has been very diligent with her exercise program both of these she was instructed in physical therapy as well as her aerobic exercise program, primarily chair-based aerobic program. She hascontinued to lose a significant amount of weight and has now lost 39 pounds in total. She is workingout for short periods of time, multiple times per day, which is excellent. She has been noticing some discomfort in the right side of her low back/flank region, especially when she reaches her right arm across her head or if she twists. OBJECTIVE PHYSICAL EXAMINATION General: Very pleasant, 62-year-old female in no acute distress. Musculoskeletal: Spine: Globally decreased lumbar spine range of motion. The patient has tenderness to palpation over the right lower lumbar paraspinals as well as in the region of the intercostals between approximately T10 through T12 on the right. Ankle range of motion is a few degrees of dorsiflexion, 45 degrees of plantarflexion on the right. There is tenderness to palpation in the midsubstance of the right Achilles tendon, as well as mild tenderness to palpation in the region of the retrocalcaneal bursa, as well as over the posterior tibialis tendon in the retromalleolar groove. Gait: Nonantalgic with use of her 4-wheeled walker today. ASSESSMENT / PLAN #1 Right posterior heel pain, most consistent with right Achilles tendinopathy #2 Right posterior tibialis tendinopathy #3 Low back pain #4 Lumbar spondylosis Overall, Ms. Adames has been making very good progress. I commended her on her diligence toher aerobic exercise program in addition to the exercises she was shown in Physical Therapy. She haslost a significant amount of weight through her diet and exercise program, which I commended her on. PLAN: I am going to have Ms. Adames continue to advance her current program in physical therapy working at [facility]. She will continue her aerobic exercise program, which is excellent. I am going to give her a prescription for a Lidoderm patch with the pain she experiences in the right side of her back and her lateral flank, which is most consistent with a component of lumbar strain,as well as I feel she may have a component of an intercostal strain. Ms. Adames will contact me if she notes any worsening or worrisome symptoms, which were detailed today. She voiced agreement and understanding with this plan. Total time, 30 minutes; counseling and coordination of care time, greater than 15 minutes. Job ID: [id number] documented in this encounter Plan of Treatment Not on filedocumented as of this encounter Visit Diagnoses Diagnosis Tendonitis Achilles Right - Primary Pain Low Back Unspecified Primary Osteoarthritis Lumbar Spine documented in this encounter Additional Health Concerns Assessment Noted Time PHQ-9 Depression Total Score: 5 04/29/2016 10:10 AM CS T documented as of this encounter
--- OUTSIDE RECORDS SUMMARY | 2022-01-12 12:36 | XMS_ITS | Encounter Summary ---
:1955 Author Organization [facility] Address [address] [place] [address] Care Team Providers Name Role Phone Unavailable Primary Care Provider Unavailable Reason for Visit Reason Comments Communication Encounter Details Date Type Department Care Team Description 05/09/2017 Clinical Communication Department of [facility], Communication Medicine in [place], [place] [address], [address] [place] [address] [address] [place] [phone] Social History Tobacco Use Types Packs/Day Years [...] or relatives? How often do you attend voodoo or Never 2021 nondenominational services? Do you belong to any clubs or Yes 12/12/2021 organizations such as voodoo groups, unions, fraternal or athletic groups, or [...] this encounter Miscellaneous Notes Telephone Encounter - Wilda Lerner L.P.N. - 05/27/2017 2:08 PM CDT Patient is on the caprice list for an appt in June. Telephone Encounter - Jossie Morris - 05/27/2017 1:51 PM CDT Patient calling doesn't remember what was discussed at last conversation Telephone Encounter - Wilda Lerner L.P.N. - 05/15/2017 2:40 PM CST Spoke with patient. We will call her back with a day and time. [employer] Telephone Encounter - Jossie Morris - 05/09/2017 4:55 PM CST Is having problems with several areas that Dr. Man has been seeing her for, would like to be seen before he leaves [employer] documented in this encounter Plan of Treatment Not on filedocumented as of this encounter Visit Diagnoses Not on filedocumented in this encounter Additional Health Concerns Assessment Noted Time PHQ-9 Depression Total Score: 5 04/29/2016 10:10 AM CS T documented as of this encounter
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
--- OUTSIDE RECORDS SUMMARY | 2022-01-12 12:36 | XMS_ITS | Encounter Summary ---
:1955 Author Organization [facility] Address [address] [place] [address] Care Team Providers Name Role Phone Unavailable Primary Care Provider Unavailable Encounter Details Date Type Department Care Team Description 02/19/2017 Orders Only Department of Neurology in Meghna Valdez M.D.[place], [place] M.P.H. [address] [facility] [address] [place] [address] [place], [place] [phone] (Wo rk) Social History Tobacco Use [...] do you attend adventism or Never 2021 yarsanism services? Do you [...] place to sleep or slept in a snf (including now)? Sex Assigned at Date Recorded Female 07/21/2017 2:58 PM CDT documented as of this encounter Plan of Treatment Not on filedocumented as of this encounter Visit Diagnoses Not on filedocumented in this encounter Additional Health Concerns Assessment Noted Time PHQ-9 Depression Total Score: 5 04/29/2016 10:10 AM CS T documented as of this encounter
--- OUTSIDE RECORDS SUMMARY | 2022-01-12 12:36 | XMS_ITS | Encounter Summary ---
:1955 Author [facility] Address [address] [place] [address] Care Team Providers Name Role Phone Unavailable Primary Care Provider Unavailable Reason for Visit Reason Comments Sleeping Problem CPAP download - sleeping bet ter. Is more tired during the day. MRI results Appointment Request (Routine) - Closed Specialty Diagnoses / Procedures Referred By Contact Refer red To Contact Neurology Referral ID Status Reason Start Date Expiration Date Visits Requ ested Visits Authorized [id number] Closed 01/20/2017 07/19/2017 1 1 Encounter Details Date Type Department Care Team Description 01/30/2017 Office Visit Department of Meghna Valdez, Apnea Slee p Obstructive (Primary Dx); Neurology in Jose Roberto.Joseph., M.P.H. Insomnia; [place], [place] [address] Hypersomnia; [address] [place], [place] Diabetes Mellitus Type 2 Wit h Diabetic Neuropathy (HCC); [place] [phone] Abnormal Magnetic Resonance Imaging [facility] n [phone] Social History Tobacco Use Types Packs/Day Years [...] or relatives? How often do you attend cheondoism or Never 2021 anglican services? Do you belong to any clubs or Yes 12/12/2021 organizations such as cheondoism groups, unions, fraternal or athletic groups, or [...] Sign Reading Time Taken Comments Blood Pressure 124/70 01/30/2017 12:54 PM GENERAL SERVICE TECHNICIAN Pulse 68 01/30/2017 12:54 PM GENERAL SERVICE TECHNICIAN Temperature - - Respiratory Rate - - Oxygen Saturation - - Inhaled Oxygen Concentration - - Weight 118 kg (259 lb 7.7 oz) 01/30/2017 12:54 PM GENERAL SERVICE TECHNICIAN Height - - Body Mass Index 38 12/30/2016 12:41 PM CDT documented in this encounter Progress Notes Maxine Valdez M.D., M.P.H. - 01/30/2017 1:00 PM CST HPI: The patient returns today for follow-up after her MRI brain. Listed below are the results. I reviewed these results with the patient. Pointed out that she seemedto have small vessel disease I thought the most likely cause is her diabetes. Her vertigo and tenderness is resolved so I think it is unlikely that this is the cause but certainly it could be. There are no acute findings on this MRI brain. I brought up the study and showed her the images. EXAM: MR Brain w/ + w/o contrast INDICATION: vertigo. Headaches. COMPARISON: None. FINDINGS: No restricted water diffusion to suggest recent infarction. No midline shift, mass effect or herniation. No abnormal blooming on gradient echo imaging to suggest intraparenchymal hemosiderin. Normal flow voids and imaged portions of the vertebral, basilar and internal carotid arteries. Mild generalized rectal volume loss. Mild to moderate nonspecific T2 signal hyperintensities involving the white matter of both cerebral hemispheres with relatively random distribution, likely due to chronic microvascular ischemic changes/leukoaraiosis. No hydrocephalus or CHIARI malformation. Ill-defined T2 signal hyperintensity is also noted involving the central and posterior iwona, with sparing of the iwona anteriorly. Overall volume of the iwona appears mildly diminished, though similar to volume loss noted involving the cerebral hemispheres. The vermis appears preserved. No associated signal diminishment is noted involving the lentiform nuclei. Following administration of intravenous gadolinium contrast, there is no abnormal intracranial enhancement. Orbital structures are unremarkable in appearance. Minimal mucosal thickening ethmoid air cells bilaterally. Visualized paranasal sinuses and mastoid air cells are otherwise clear. Internal auditory canals and cerebellopontine angles are unremarkable in appearance. IMPRESSION: 1. No evidence of acute intracranial abnormality. Specifically no intracranial hemorrhage, mass effect, midline shift or evidence of recent infarction. 2. Mild generalized parenchymal volume loss noted intracranially as detailed above. 3. Nonspecific multifocal T2 hyperintense changes bilateral cerebral hemispheric white matter likely related to chronic small vessel ischemic changes. 4. Slightly more focal nonspecific T2 hyperintense changes involving the central and posterior iwona, without associated abnormal enhancement or mass effect. This may simply also be related to chronic small vessel ischemic changes, though other etiologies are not excluded. Multisystem atrophy can demonstrate focal T2 signal hyperintensity involving the iwona with associated volume loss, though there is no associated atrophy involving the vermis, nor is there evidence of lentiform nuclear signal abnormality to support multiple system atrophy. 5. No abnormal intracranial enhancement. 6. Cerebellopontine angles and internal auditory canals are unremarkable in appearance. The patient's insomnia has resolved with the doxepin 3 mg dose. The only complaint she has is she feels a little bit tired during the day and I wonder if that is in because of the half life or the dose. We talked about cutting that pill in half to see if that helps. She is very happy though with this medication and feels like she is sleeping much better. Her sleep apnea download shows that she is doing well her AHI is 1.4 the median leak per minute is 0.3 95th percentile 6.1 the use is 6 hours and 43 minutes per day time and I am happy with all of these numbers. Her [place] sleepiness Score today is 11 and I wonder whether this is related to the doxepin. Her diabetic peripheral neuropathy seems to be reasonably well controlled but she is having a lot ofpain from orthopedic problems with her feet and her hip. She expressed some frustration that there has to be a prior authorization before she can get the MRI of her hip. Review of systems: ENT-sinus pain Cardiovascular-palpitations, foot swelling Respiratory-cough, shortness of breath Gastrointestinal diarrhea, constipation Psychiatric depression, anxiety, panic attacks, stress Otherwise negative except as noted in history of present illness. PE: BP 124/70 Pulse 68 Wt 117.7 kg BMI 38.00 kg/m?? Neurologic examination Cranial nerves 2-12 are normal including visual bwoling and extraocular movement. Motor examination reveals normal bulk tone and strength throughout [place] rapid movements normal bilaterally. Impression: Obstructive sleep apnea, very well treated on her present settings and mask no changes. Insomnia and this appears to be resolved with the doxepin 3 mg HS. She might be having a little bit of hangover home from that sort going to cut the dose in half because her [place] sleepiness score is11 today. But in terms of quality of life she is very happy with that. Her tenderness and vertigo has resolved her MRI shows some small vessel disease that is nonacute I told her that diabetes elevated blood sugar smoking hyper cholesterol are all risk factors. She is already on aspirin so I think we are doing her will we should do. The radiologist commented about whether this findings could be due to multiple system atrophy but I see no evidence for that. Peripheral neuropathy. I think the patient is reasonably well controlled from high neurology standpoint I think her other issues of pain have to be resolved before we consider changing therapy for thatand patient is in agreement with that plan Total time together was 40 minutes 25 and counseling care coordination. RAL SERVICE TECHNICIAN documented in this encounter Plan of Treatment Not on filedocumented as of this encounter Visit Diagnoses Diagnosis Apnea Sleep Obstructive - Primary Insomnia Hypersomnia Diabetes Mellitus Type 2 With Diabetic N europathy (HCC) Abnormal Magnetic Resonance Imaging Brai n documented in this encounter Additional Health Concerns Assessment Noted Time PHQ-9 Depression Total Score: 5 04/29/2016 10:10 AM CS T documented as of this encounter
--- OUTSIDE RECORDS SUMMARY | 2022-01-12 12:36 | XMS_ITS | Encounter Summary ---
:1955 Author Organization [facility] Address [address] [place] [address] Care Team Providers Name Role Phone Unavailable Primary Care Provider Unavailable Encounter Details Date Type Department Care Team Description 09/23/2017 Hospital Encounter Department of Radiology, Juan Alfaro, [facility], [place] [address] [facility] [address] [place] [phone] Social History Tobacco Use Types Packs/Day Years [...] do you attend yarsani or Never 2021 hoahaoism services? Do you belong to any clubs [...] Name Priority Date/Time Associated Comments Diagnosis DX ABDOMEN 1 VIEW RAD - Routine 09/23/2017 11:11 Constipation Resul ts for this (most inpatients AM CDT procedure a re in and all the results outpatients) section. documented in this encounter Results DX Abdomen 1 View (09/23/2017 11:11 AM CDT) Anatomical Region Laterality Modality Abdomen, Abdominal RST LOS N/A Computed Radi ography Specimen (Source) Anatomical Collection Method Collection Time Re ceived Time Location / / Volume Laterality 09/23/2017 11:16 AM CDT Impressions 09/23/2017 11:16 AM CDT IMPRESSION: ??Nonobstructive bowel gas pattern. Moderate amount of stool throughout the colon. Degenerative alvarez es lumbar spine, SI joints, and both hips. Narrative 09/23/2017 11:16 AM CDT EXAM: ??DX ABDOMEN 1 VIEW Procedure Note Antony Del Real M.D. - 09/23/2017F ormatting of this note might be different from the original. EXAM: DX ABDOMEN 1 VIEW IMPRESSION: Nonobstructive bowel gas pat tern. Moderate amount of stool throughout the colon. Degenerative alvarez es lumbar spine, SI joints, and both hips. Henry Noriega [facility] PROCE DEB documented in this encounter Visit Diagnoses Diagnosis Constipation documented in this encounter Additional Health Concerns Assessment Noted Time PHQ-9 Depression Total Score: 5 04/29/2016 10:10 AM CS T documented as of this encounter
--- OUTSIDE RECORDS SUMMARY | 2022-01-12 12:36 | XMS_ITS | Encounter Summary ---
:1955 Author Organization [facility] Address [address] [place] [address] Care Team Providers Name Role Phone Unavailable Primary Care Provider Unavailable Reason for Visit Reason Comments Knee Pain right Appointment Request (Routine) - Closed Specialty Diagnoses / Referred By Contact Referred To Contact Procedures Physical Medicine and Vivek Man, Rehabilitation [place] [address] [place] [address] [address] [place] [address] Referral ID Status Reason Start Date Expiration Date Visits Requ ested Visits Authorized [id number] Closed 01/28/2017 07/27/2017 1 1 Encounter Details Date Type Department Care Team Description 04/28/2017 Office Visit Department of Physical Vivek Man, Pain Knee Right Medicine and Flynn (Primary Dx) Rehabilitation in [address] [place] [address] [address] [place] [phone] [facility] [phone] Social History Tobacco Use Types Packs/Day Years [...] or relatives? How often do you attend presybeterian or Never 2021 scientology services? Do you belong to any clubs or Yes 12/12/2021 organizations such as presybeterian groups, unions, fraternal or athletic groups, or [...] Sign Reading Time Taken Comments Blood Pressure 122/80 04/28/2017 2:36 PM X RAY PHYSICIAN Pulse - - Temperature - - Respiratory Rate - - Oxygen Saturation - - Inhaled Oxygen Concentration - - Weight 112 kg (246 lb 9.4 oz) 04/28/2017 2:35 PM X RAY PHYSICIAN Height - - Body Mass Index 35.7 04/15/2017 3:09 PM X RAY PHYSICIAN documented in this encounter Progress Notes Vivek Man M.D. - 04/28/2017 12:00 AM CST SUBJECTIVE CHIEF COMPLAINT/REASON FOR VISIT Right knee pain. HISTORY OF PRESENT ILLNESS Ms. Adames is very pleasant, 61-year-old female returns today. Since I last saw her, she has been definitively diagnosed with diabetes. Her hemoglobin A1c was 13 but within 2 months she decreased at 7.3 through a combination of eating well and exercise. She has lost 23 pounds over the past couple months which is excellent. She has been very diligent with her exercise program and she had increased her recumbent bicycle time to 30 minutes 5 to 7 days per week. Her goal is now to increase it up to 60 minutes 5 to 7 days per week. She has been battling an upper respiratory infection over the past 10 days and last Thursday she was at the clinic being evaluated. She felt that her knee gave out on her. She has been having pain in the medial aspect of her right knee since that time. She had a right total knee arthroplasty performed approximately 10 years ago. She does not note any swelling, warmth, or erythema about the knee. She denies any catching or locking in the knee but she feels that ifsomething is loose or the knee could give way on her. She feels more unsteady on her feet. OBJECTIVE PHYSICAL EXAMINATION General: Pleasant 61-year-old female in no acute distress. Gait nonantalgic with her walker. Knees: There is no effusion present right knee. There is no warmth erythema about the right knee. Range of motion from 0 to 125 degrees. There is posterior medial joint line tenderness as well as tenderness over the pes anserine bursa region. There is no lateral joint line tenderness. Negative Bounce home, negative Babatunde's. ASSESSMENT / PLAN #1 Right knee pain #2 History of right total knee arthroplasty PLAN: 1. I am going to proceed today with x-rays of the right knee to evaluate her prosthesis. 2. She is also tender to palpation over the pes anserine bursa tendons and if her knee x-rays are unremarkable I am going to have her begin icing the pes anserine bursa region 2 to 3 times a day for the next 1 to 2 weeks and hopefully that will help improve her symptoms. Reassuringly, she is not having any pain or effusion on the recumbent bicycle so I think it would be very reasonable to continue doing that. 3. We will plan to contact Ms. Ha with the results of her x-rays. She voiced agreement with this plan. Total time 25 minutes, counseling, care time greater than 15 minutes. Job ID: [id number] X RAY PHYSICIAN documented in this encounter Plan of Treatment Not on filedocumented as of this encounter Results DX Knee Right 3 Views (04/28/2017 4:15 PM X RAY PHYSICIAN) Anatomical Region Laterality Modality Lower Extremity, Knee Right Computed Radiograp hy Specimen (Source) Anatomical Collection Method Collection Time Re ceived Time Location / / Volume Laterality 04/29/2017 8:32 AM X RAY PHYSICIAN Impressions 04/29/2017 8:33 AM X RAY PHYSICIAN IMPRESSION: No appreciable acute osseous abnormality of the bilateral knees. Postop changes bilateral total knee arth roplasties. Narrative 04/29/2017 8:33 AM X RAY PHYSICIAN EXAM: DX KNEE RIGHT 3 VIEWS COMPARISON: February 26, 2012. FINDINGS: Postop changes bilateral total knee arthroplasties with patellar resurfacing. No radiographic evidence of loosening. Tiny right knee joint effusion. If pain persists consider follow-up imag ing. Procedure Note Solis Guan M.D. - 04/29/2017Forma tting of this note might be different from the original. EXAM: DX KNEE RIGHT 3 VIEWS COMPARISON: February 26, 2012. FINDINGS: Postop changes bilateral total knee arthroplasties with patellar resurfacing. No radiographic evidence of loosening. Tiny right knee joint effusion. If pain persists consider follow-up imag ing. IMPRESSION: No appreciable acute osseous abnormality of the bilateral knees. Postop changes bilateral total knee arth roplasties. Vivek [facility] JOSE BOYD documented in this encounter Visit Diagnoses Diagnosis Pain Knee Right - Primary Pain Knee Right documented in this encounter Additional Health Concerns Assessment Noted Time PHQ-9 Depression Total Score: 5 04/29/2016 10:10 AM CS T documented as of this encounter
--- OUTSIDE RECORDS SUMMARY | 2022-01-12 12:36 | XMS_ITS | Encounter Summary ---
:1955 Author Organization [facility] Address [address] [place] [address] Care Team Providers Name Role Phone Unavailable Primary Care Provider Unavailable Reason for Visit Reason Onset Date Comments Referral 01/30/2017 Encounter Details Date Type Department Care Team Description 01/30/2017 Clinical Communication Department of Vivek Man Referral Occupational Medicine [facility]Jay in [address] [place] [phone] Social History Tobacco Use Types Packs/Day Years [...] or relatives? How often do you attend mormonism or Never 2021 baptism services? Do you belong to any clubs or Yes 12/12/2021 organizations such as mormonism groups, unions, fraternal or athletic groups, or [...] this encounter Miscellaneous Notes Telephone Encounter - Inez Guthrie - 02/12/2017 11:41 AM CST Thanks. LY LAW SPECIALIST Telephone Encounter - Wilda Lerner L.P.NCandy - 01/30/2017 9:56 AM CST Waiting on prior authorization. LY LAW SPECIALIST Telephone Encounter - Inez Guthrie - 01/30/2017 9:23 AM CST The patient called and said that she was supposed to have a referral for a MRI in [place] and they do not have anything. Can you please check on this she would like this done SHINE LY LAW SPECIALIST documented in this encounter Plan of Treatment Not on filedocumented as of this encounter Visit Diagnoses Not on filedocumented in this encounter Additional Health Concerns Assessment Noted Time PHQ-9 Depression Total Score: 5 04/29/2016 10:10 AM CS T documented as of this encounter
--- OUTSIDE RECORDS SUMMARY | 2022-01-12 12:36 | XMS_ITS | Encounter Summary ---
:1955 Author Organization [facility] Address [address] [place] [address] Care Team Providers Name Role Phone Unavailable Primary Care Provider Unavailable Reason for Visit Reason Onset Date Comments Constipation 10/23/2017 Encounter Details Date Type Department Care Team Description 10/23/2017 Clinical Communication Department of Physical Rue, Catarina Cid, Constipation Medicine and R.N. Rehabilitation in [address] [place] [address] [place] [phone] [place] [address] [phone] Social History Tobacco Use Types Packs/Day Years [...] do you attend yazidism or Never 2021 scientology services? Do you [...] Telephone Encounter - Elida Garcia R.N. - 10/23/2017 12:04 PM CDT I returned a call to Mrs Adames. She is scheduled to work with me the end of November for the two week Evacuation Disorders Program. She is seeking advice on bowel management. She has been taking a dose of MiraLAX 2-3 days a week. If she doesn't have a BM every 2-3 days she does a bisacodyl (Dulcolax) suppository which gives her much cramping. Her goal is to stay regular, she prefers to go at least every other day. Sometimes she needs to work hard at having a BM. We agreed that she will take MiraLAX every other day, she prefers in the morning. I explained about glycerin suppositories. Shewill do a glycerin suppository if no BM in three days. She will try this routine for a week and callme back if that doesn't work for her. She appreciated the advice. documented in this encounter Plan of Treatment Not on filedocumented as of this encounter Visit Diagnoses Not on filedocumented in this encounter Additional Health Concerns Assessment Noted Time PHQ-9 Depression Total Score: 5 04/29/2016 10:10 AM CS T documented as of this encounter
--- OUTSIDE RECORDS SUMMARY | 2022-01-12 12:36 | XMS_ITS | Encounter Summary ---
:1955 Author Organization [facility] Address [address] [place] [address] Care Team Providers Name Role Phone Unavailable Primary Care Provider Unavailable Encounter Details Date Type Department Care Team Description 09/24/2017 Office Visit Division of Henry Alfaro Gastroenterology in C, M.B.B.S. Floor Female [place], [place] [address] [place] [address] (Primary Dx) [address] [place] [phone] Social History Tobacco Use Types Packs/Day Years [...] do you attend samaritan or Never 2021 restorationism services? Do you [...] encounter Progress Notes Henry Alfaro M.B.B.S. - 09/24/2017 11:00 AM CDT ASSESSMENT/PLAN Ms. Adames is here after completing testing. #1 Pelvic floor dysfunction Ms. Adames had an abnormal anorectal manometry as evidence by the inability to expel the balloon. Her calcium and TSH were normal, and her abdominal x-ray did show significant stool burden. Atthis point, she would benefit from the Evacuation Disorder Program. I have placed a consult for this, and she will check with her insurance regarding this. She is motivated to complete this program andunderstands the importance of it. In the interim, I did advise her again to avoid straining and try to not spend too much time on the toilet. She will try to use MiraLAX to see if this helps improve her ability to evacuate. I have warned her that with MiraLAX she may notice that her stools are more loosely formed, and she may have episodes of incontinence if this does happen. She will, however, try this and see if she is able to titrate the dose to help improve evacuation while she waits for the program. documented in this encounter Plan of Treatment Not on filedocumented as of this encounter Visit Diagnoses Diagnosis Dysfunction Pelvic Floor Female - Primar y documented in this encounter Additional Health Concerns Assessment Noted Time PHQ-9 Depression Total Score: 5 04/29/2016 10:10 AM CS T documented as of this encounter
--- OUTSIDE RECORDS SUMMARY | 2022-01-12 12:36 | XMS_ITS | Encounter Summary ---
:1955 Author Organization [facility] Address [address] [place] [address] Care Team Providers Name Role Phone Unavailable Primary Care Provider Unavailable Encounter Details Date Type Department Care Team Description 10/22/2017 Clinical Communication Department of Physical Richard, Ida Medicine and K Rehabilitation in [address] [place] [address] [place] [phone] [place] [address] [phone] Social History Tobacco Use Types Packs/Day Years [...] or relatives? How often do you attend anabaptism or Never 2021 adventism services? Do you belong to any clubs or Yes 12/12/2021 organizations such as anabaptism groups, unions, fraternal or athletic groups, or [...] Notes Telephone Encounter - Ida Burger - 10/22/2017 2:13 PM CDT Elida Mrs. Adames is scheduled to see you in Nov and would like you to call her regarding thingsshe can do to help with her symptoms until she sees you for the program. Thank you- Ida documented in this encounter Plan of Treatment Not on filedocumented as of this encounter Visit Diagnoses Not on filedocumented in this encounter Additional Health Concerns Assessment Noted Time PHQ-9 Depression Total Score: 5 04/29/2016 10:10 AM CS T documented as of this encounter
--- OUTSIDE RECORDS SUMMARY | 2022-01-12 12:36 | XMS_ITS | Encounter Summary ---
:1955 Author Organization [facility] Address [address] [place] [address] Care Team Providers Name Role Phone Unavailable Primary Care Provider Unavailable Reason for Visit Reason Comments Med Refill Encounter Details Date Type Department Care Team Description 02/18/2017 Refill Department of Neurology in Meghna Valdez M.D., Med Refill [place], [place] M.P.H. [address] [place] [address] [address] [place] [address] [place] [phone] (Wo rk) Social History Tobacco Use Types [...] do you attend mormon or Never 2021 scientologist services? Do you belong to any clubs [...]
--- OUTSIDE RECORDS SUMMARY | 2022-01-12 12:36 | XMS_ITS | Encounter Summary ---
:1955 Author Organization [facility] Address [address] [place] [address] Care Team Providers Name Role Phone Unavailable Primary Care Provider Unavailable Encounter Details Date Type Department Care Team Description 10/01/2017 Clinical Communication Department of Physical [facility], Medicine and Jones Mendoza M.D. Rehabilitation in [address] [place] [address] [place] [phone] [place] [address] Social History Tobacco Use Types Packs/Day [...] do you attend latter-day or Never 2021 sabianism services? Do you [...]
--- OUTSIDE RECORDS SUMMARY | 2022-01-12 12:36 | XMS_ITS | Encounter Summary ---
:1955 Author Organization [facility] Address [address] [place] [address] Care Team Providers Name Role Phone Unavailable Primary Care Provider Unavailable Reason for Referral Behavioral Health (Routine) - Closed Specialty Diagnoses / Procedures Referred By Contact Refer red To Contact Psychiatry / Psychiatry Diagnoses Abnormal Magnetic Resonance Imaging Brain Meghna Valdez, [facility] Flynn, M.P.H. [address] [place] [phone] Referral ID Status Reason Start Date Expiration Date Visits Requ ested Visits Authorized [id number] Closed 02/20/2017 08/19/2017 1 1 WARE DEVELOPER Encounter Details Date Type Department Care Team Description 02/20/2017 Orders Only Department of Sleep Meghna Valdez, [facility] Magnetic Medicine in [place] M.D., M. P.H. Resonance Imaging Brain [place] [address] [place] [address] (Primary Dx) [address] [place], [place] [phone] Social History Tobacco Use Types Packs/Day Years [...] or relatives? How often do you attend hinduism or Never 2021 protestant services? Do you belong to any clubs or Yes 12/12/2021 organizations such as hinduism groups, unions, fraSadra Medical or athletic groups, or school groups? How [...] place to sleep or slept in a [facility] (including now)? Sex Assigned at Date Recorded Female 07/21/2017 2:58 PM CDT documented as of this encounter Plan of Treatment Not on filedocumented as of this encounter Visit Diagnoses Diagnosis Abnormal Magnetic Resonance Imaging Brai n - Primary documented in this encounter Additional Health Concerns Assessment Noted Time PHQ-9 Depression Total Score: 5 04/29/2016 10:10 AM CS T documented as of this encounter
--- OUTSIDE RECORDS SUMMARY | 2022-01-12 12:36 | XMS_ITS | Encounter Summary ---
:1955 Author Organization [facility] Address [address] [place] [address] Care Team Providers Name Role Phone Unavailable Primary Care Provider Unavailable Reason for Visit Reason Comments Follow-up Appointment Request (Routine) - Closed Specialty Diagnoses / Referred By Contact Referred To Contact Procedures Physical Medicine and Vivek Man, Rehabilitation M.D. [address] [facility], [address] [place] [address] Referral ID Status Reason Start Date Expiration Date Visits Requ ested Visits Authorized [id number] Closed 05/28/2017 11/24/2017 1 1 Encounter Details Date Type Department Care Team Description 06/19/2017 Office Visit Department of Physical Vivek Man, Tendonitis Achilles Right (Primary Dx); Medicine and M.D. Pain Neck; Rehabilitation in [address] [facility], Spond ylosis Cervical Without Myelopathy [place], [place] [address] [place] [address] [phone] Social History Tobacco Use Types Packs/Day Years Used Date Smoking Tobacco: Unknown Smokeless Tobacco: Never Alcohol Habits Answer Date [...] or relatives? How often do you attend yarsanism or Never 2021 zoroastrian services? Do you belong to any clubs or Yes 12/12/2021 organizations such as yarsanism groups, unions, fraternal or athletic groups, or [...] Sign Reading Time Taken Comments Blood Pressure 128/72 06/19/2017 11:29 AM CDT Pulse - - Temperature - - Respiratory Rate - - Oxygen Saturation - - Inhaled Oxygen Concentration - - Weight 108 kg (239 lb 1.4 oz) 06/19/2017 11:29 AM CDT Height - - Body Mass Index 34.62 04/15/2017 3:09 PM PENCIL SORTER documented in this encounter Progress Notes Vivek Man M.D. - 06/19/2017 12:00 AM CDT SUBJECTIVE CHIEF COMPLAINT/REASON FOR VISIT Right posterior heel pain and neck pain. HISTORY OF PRESENT ILLNESS This is a very pleasant 62-year-old who female returns today. She reports that she did purchase a new recumbent bicycle 3 months ago and shortly after starting to use it she has noted some pain in the region the right posterior heel and points to the midsubstance Achilles tendon. She reports this is worse when she is biking but can bother her at all times. It is not stopping her from biking and she has actually increased her frequency of biking to 20 minutes 2 times per day and has lost 15 pounds over the past 3 months. She has not noted any swelling, warmth or erythema about the Achilles. She denies any increase in paresthesias in the bilateral feet with her known peripheral neuropathy. She also describes neck pain. It has been more prominent on the right as compared to the left side of her neck primarily in the upper cervical region. She denies any pain radiating to her upper extremities, paresthesias, or focal weakness in her upper extremities. She has been working with a chiropractor with respect to the neck pain. OBJECTIVE PHYSICAL EXAMINATION General: Very pleasant, 62-year-old female in no acute distress. Spine: -1 globally decreased cervical spine range of motion. Negative Spurling's bilaterally. The patient has pain with palpation at the right upper and mid cervical paraspinals. There is mild tenderness right upper trapezius. Strength: All major muscle groups of the bilateral upper and lower extremities have normal and symmetric muscle strength, bulk and tone. Extremities: Heel range of motion, ankle range of motion few degrees dorsiflexion, 45 degrees of plantar flexion on the right. There is pain on palpation in the midsubstance of the Achilles tendon as well as mild tenderness to palpation region of the retrocalcaneal bursa. There is no evidence of any si gnificant retrocalcaneal bursa fluid collection, warmth or erythema. ASSESSMENT / PLAN #1 Acute exacerbation of chronic neck pain #2 Cervical spondylosis #3 Right posterior heel pain, most consistent with right Achilles tendinopathy PLAN: 1. I am going have Ms. Dilcia Multani seen in Physical Therapy and gave her a detailed prescriptiontoday. We are going to order comprehensive program including cervical spine range of motion as well as pain relieving modalities and progress to a very basic cervical stabilization program and focus onher posture. 2. I am going to have her begin icing the Achilles after she bikes and she is going to do that todayas well as I showed her some basic stretching exercises for both her gastroc and soleus after she bikes. 3. I did discuss that I will be transitioning from [place] to the practice in [place]. She understands this and I will see her in [place] after physical therapy. She also knows to contact prior to that time if she notes any worsening or worrisome symptoms which we went over in detail today. Ms. Ha voiced agreement and understanding with this plan. Total time 30 minutes, counseling, coordination of care time greater than 15 minutes. Job ID: [id number] documented in this encounter Plan of Treatment Not on filedocumented as of this encounter Visit Diagnoses Diagnosis Tendonitis Achilles Right - Primary Pain Neck Spondylosis Cervical Without Myelopathy documented in this encounter Additional Health Concerns Assessment Noted Time PHQ-9 Depression Total Score: 5 04/29/2016 10:10 AM CS T documented as of this encounter
--- OUTSIDE RECORDS SUMMARY | 2022-01-12 12:36 | XMS_ITS | Encounter Summary ---
:1955 Author Organization [facility] Address [address] [place] [address] Care Team Providers Name Role Phone Unavailable Primary Care Provider Unavailable Reason for Visit Reason Comments Med Refill Encounter Details Date Type Department Care Team Description 03/28/2017 Refill Department of Physical Medicine Vivek Man M.D. Med Refill and Rehabilitation in [address] [place], [place] [address] [place], [place] [id number] [place] [phone] Social History Tobacco Use Types Packs/Day Years [...] do you attend religion or Never 2021 islam services? Do you belong to any clubs [...]
--- OUTSIDE RECORDS SUMMARY | 2022-01-12 12:36 | XMS_ITS | Encounter Summary ---
:1955 Author Organization [facility] Address [address] [place] [address] Care Team Providers Name Role Phone Unavailable Primary Care Provider Unavailable Reason for Referral Outpatient (Routine) - Closed Specialty Diagnoses / Referred By Referred To Cont act Procedures Contact Gastroenterology and Diagnoses Constipation Rectocele Other Specified [facility] [address], [place] [address] Referral ID Status Reason Start Date Expiration Date Visits Requ ested Visits Authorized [id number] Closed 09/02/2017 09/02/2018 1 1 Encounter Details Date Type Department Care Team Description 09/01/2017 [facility] Anoop Emery Specified Disorders Of Muscle (Primary Dx); AND MARVIN Ruiz M.D. Constipation; [address] [place] [address] [facility] [place] [address] [place], [place] [phone] Social History Tobacco Use Types Packs/Day Years [...] do you attend yarsani or Never 2021 yazidism services? Do you belong to any clubs [...] Name Type Priority Associated Order Schedule Diagnoses Gastroenterology & Outpatient Routine Constipation Expected: Hepatology Referral Referral Rectocele 09/02/2017 Other Specified (Approximate ), Disorders Of Expires: Muscle 09/02/2020 documented as of this encounter Visit Diagnoses Diagnosis Other Specified Disorders Of Muscle - Pr imary Constipation Rectocele documented in this encounter Additional Health Concerns Assessment Noted Time PHQ-9 Depression Total Score: 5 04/29/2016 10:10 AM CS T documented as of this encounter
--- OUTSIDE RECORDS SUMMARY | 2022-01-12 12:36 | XMS_ITS | Encounter Summary ---
:1955 Author Organization [facility] Address [address] [place] [address] Care Team Providers Name Role Phone Unavailable Primary Care Provider Unavailable Reason for Visit Reason Comments Communication medication Encounter Details Date Type Department Care Team Description 04/03/2017 Clinical Communication Department of [facility] MedicineAdriana M.D., (medication ) [facility] [address] [phone] Social History Tobacco Use Types Packs/Day Years [...] you attend latter day or Never 2021 zoroastrian services? Do you belong to any clubs or Yes 12/12/2021 organizations such as latter day groups, unions, fraternal or athletic groups, or [...] this encounter Miscellaneous Notes Telephone Encounter - Daphne Myers - 04/03/2017 1:21 PM CST Sure but how about cutting in 1/2 before we try something else? Patient called she had to stop taking the Silenor due to side effect of bladder issues she is wondering if there is anything else she can take? Call her. [employer] documented in this encounter Plan of Treatment Not on filedocumented as of this encounter Visit Diagnoses Not on filedocumented in this encounter Additional Health Concerns Assessment Noted Time PHQ-9 Depression Total Score: 5 04/29/2016 10:10 AM CS T documented as of this encounter
--- OUTSIDE RECORDS SUMMARY | 2022-01-12 12:36 | XMS_ITS | Encounter Summary ---
:1955 Author Organization [facility] Address [address] [place] [address] Care Team Providers Name Role Phone Unavailable Primary Care Provider Unavailable Encounter Details Date Type Department Care Team Description 04/28/2017 Hospital Encounter Department of Vivek Man Pai n Knee Right Radiology in [place], [place] [address], [address] [place] [id number] [phone] Social History Tobacco Use Types Packs/Day Years [...] or relatives? How often do you attend buddhism or Never 2021 temple services? Do you belong to any clubs or Yes 12/12/2021 organizations such as buddhism groups, unions, fraternal or athletic groups, or [...] as 0 200812/24/2021 200 mg capsule needed. aspirin [address] tablet Take 81 mg by 0 7 07/21/2017 mouth daily. CALCIUM CARBONATE/VITAMIN Take 1 tablet by 0 05/201412/18/2021 D3 (CALCIUM WITH VITAMIN D mouth 3 (three) ORAL) times a day. CONTOUR NEXT LEV 2 CONTROL U UTD 0 7 12/24/2021 JONNY solution CONTOUR NEXT STRIPS strips 2 (two) times a 3 11/201712/24/2021 day. for testing lidocaine (LIDODERM) 5 % Apply topically as 0 07/21/2017 patch needed. loratadine (for_CLARITIN) Take 1 tablet by 0 09/1512/27/2021 10 mg tablet mouth daily. melatonin 3 mg tablet Take 1 tablet by 0 08/29/19 17 07/21/2017 mouth. MICROLET LANCET misc 2 (two) times a 3 04/04/2017 12/24/2021 day. for testing pregabalin (LYRICA) 50 mg Take 1 capsule by 0 05/28/2017 capsule mouth daily. quinapril-hydroCHLOROthiaz Take 1 tablet by 0 07/21/2017 rob (for_ACCURETIC) mouth daily. 20-12.5 mg per tablet SENNOSIDES/DOCUSATE SODIUM Take 3 tablets by 0 06/23/2020 (SENNA WITH DOCUSATE mouth daily. SODIUM ORAL) SILENOR 3 mg tablet TAKE 1 TABLET BY 30 tablet 0 02/20/2017 09/23/2017 MOUTH AT BEDTIME triamcinolone 0 10/30/2016 06/23/2020 (for_KENALOG) 0.1 % [...] Name Priority Date/Time Associated Comments Diagnosis DX KNEE RIGHT 3 RAD - Routine 04/28/2017 4:15 Pain Knee Right Resul ts for this VIEWS (most inpatients PM CODING TECHNICIAN procedure a re in and all the results outpatients) section. documented in this encounter Results DX Knee Right 3 Views (04/28/2017 4:15 PM CODING TECHNICIAN) Anatomical Region Laterality Modality Lower Extremity, Knee Right Computed Radiograp hy Specimen (Source) Anatomical Collection Method Collection Time Re ceived Time Location / / Volume Laterality 04/29/2017 8:32 AM CODING TECHNICIAN Impressions 04/29/2017 8:33 AM CODING TECHNICIAN IMPRESSION: No appreciable acute osseous abnormality of the bilateral knees. Postop changes bilateral total knee arth roplasties. Narrative 04/29/2017 8:33 AM CODING TECHNICIAN EXAM: DX KNEE RIGHT 3 VIEWS COMPARISON: [...] encounter Visit Diagnoses Diagnosis Pain Knee Right documented in this encounter Additional Health Concerns Assessment Noted Time PHQ-9 Depression Total Score: 5 04/29/2016 10:10 AM CS T documented as of this encounter
--- OUTSIDE RECORDS SUMMARY | 2022-01-12 12:36 | XMS_ITS | Encounter Summary ---
:1955 Author Organization [facility] Address [address] [place] [address] Care Team Providers Name Role Phone Unavailable Primary Care Provider Unavailable Encounter Details Date Type Department Care Team Description 10/03/2017 Clinical Communication Department of Physical Ri nn, [facility] and [phone] Rehabilitation in (Work) [place], [place] [address] [place] [address] Social History Tobacco Use Types Packs/Day [...] or relatives? How often do you attend gnosticism or Never 2021 confucianist services? Do you belong to any clubs or Yes 12/12/2021 organizations such as gnosticism groups, unions, fraternal or athletic groups, or [...]
--- OUTSIDE RECORDS SUMMARY | 2022-01-12 12:36 | XMS_ITS | Encounter Summary ---
:1955 Author Organization [facility] Address [address] [place] [address] Care Team Providers Name Role Phone Unavailable Primary Care Provider Unavailable Reason for Visit Reason Comments Toe Pain left first toe infection Encounter Details Date Type Department Care Team Description 09/24/2017 Emergency [facility] Kermit Be Ingrown Toenail Emergency Department D.O. (Primary Dx) [address] [place] [address] [address] [place] [phone] (Wo rk) Social History Tobacco Use Types [...] do you attend caodaism or Never 2021 sikhism services? Do you belong to any clubs [...] Sign Reading Time Taken Comments Blood Pressure 126/70 09/24/2017 4:31 PM CDT Pulse 68 09/24/2017 4:31 PM CDT Temperature 36.4 ??C (97.5 ??F) 09/24/2017 2:25 PM CDT Respiratory Rate 14 09/24/2017 4:31 PM CDT Oxygen Saturation 98% 09/24/2017 4:31 PM CDT Inhaled Oxygen Concentration - - Weight 102 kg (225 lb 15.5 oz) 09/24/2017 2:18 PM CDT Height 176 cm (5' 9.29) 09/24/2017 2:18 PM CDT Body Mass Index 33.09 09/24/2017 2:18 PM CDT documented in this encounter Discharge Instructions AttachmentsThe following attachments cannot be sent through Care Everywhere. Ingrown Toenail (Japanese)documented in this encounter Medications at Time of [...] CALCIUM CARBONATE/VITAMIN Take 1 tablet by 0 0 05/201412/18/2021 D3 (CALCIUM WITH VITAMIN D mouth 3 (three) ORAL) times a day. CONTOUR NEXT LEV 2 CONTROL U UTD 0 7 12/24/2021 JONNY solution CONTOUR NEXT STRIPS strips 2 (two) times a 3 11/201712/24/2021 day. for testing loratadine (for_CLARITIN) Take 1 tablet by 0 /2 08/200912/27/2021 10 mg tablet mouth daily. MICROLET LANCET [...] as needed. documented as of this encounter ED Notes Thalia Miller N - 09/24/2017 2:43 PM CDT SUBJECTIVE CHIEF COMPLAINT/REASON FOR VISIT Toe Pain (left first toe infection) HISTORY OF PRESENT ILLNESS Yaz Adames is a 62 year old female with diabetes presenting with left great toe pain. She has a history of repeated ingrown toenails in the same toe. Since Friday, she has had pain in her toe and has had redness of the toe since yesterday. She usually has her primary care provider take care of her toenails for her, but because her provider is out of town, she presented to the ED due to the great discomfort and difficulty with walking. REVIEW OF SYSTEMS Constitutional: Positive for fatigue. Negative for chills and fever. HENT: Negative for congestion, rhinorrhea and sore throat. Eyes: Negative for visual disturbance. Respiratory: Negative for cough, hemoptysis, chest tightness and shortness of breath. Cardiovascular: Negative for chest pain and leg swelling. Gastrointestinal: Positive for abdominal pain (being worked up as an outpatient) and constipation (being worked up as an outpatient). Negative for nausea and vomiting. Endocrine: Negative for polyuria. Genitourinary: Negative for inability to urinate and dysuria. Musculoskeletal: Negative for arthralgias and myalgias. Skin: Negative for color change. Allergic/Immunologic: Negative for immunocompromised state. Neurological: Positive for loss of balance (feels off balance with walking). Negative for dizziness and headaches. Psychiatric/Behavioral: Negative for confusion. OBJECTIVE Initial Vitals Temperature Pulse Rate Heart Rate Resp Blood Pressure SpO2 09/24/17 1425 09/24/17 1425 -- -- 09/24/17 1425 09/24/17 1425 36.4 ??C 67 124/66 98 % Pain Score 09/24/17 1423 4 PHYSICAL EXAMINATION Constitutional: She appears well-developed and well-nourished. No distress. HENT: Head: Normocephalic and atraumatic. Nose: No nasal discharge. Mouth/Throat: Oropharynx is clear and moist. Mucous membranes are moist. Eyes: Conjunctivae and EOM are normal. Cardiovascular: Normal rate, regular rhythm and normal heart sounds. Pulses are palpable. Capillary refill: takes less than 3 seconds, Pulmonary/Chest: Effort normal and breath sounds normal. No respiratory distress. Abdominal: Soft. She exhibits no distension and no mass. Musculoskeletal: She exhibits no edema. Neurological: She is alert and oriented to person, place, and time. Skin: Skin is warm and dry. Psychiatric: She has a normal mood and affect. Extremities: Left lower extremity: erythema surrounding left great toe. Medial aspect of toenail under skin. No abscess. Tender to touch. Warm. ASSESSMENT/PLAN Impression and Plan Yaz Adames is a 62 year old with diabetes who presents with an ingrown toenail on her left great toe. We will do a ring block of the digit and remove a wedge of her toenail. . Final Diagnoses: as of Sep 25 1627 Ingrown Toenail Thalia Miller N 09/24/17 1509 Thalia Miller N 09/24/17 1628 Kermit Be D.O. - 09/24/2017 2:42 PM CDT SUBJECTIVE CHIEF COMPLAINT/REASON FOR VISIT Toe Pain (left first toe infection) HISTORY OF PRESENT ILLNESS Very pleasant 62-year-old female known diabetic here with left great toe pain. Appears to have an ingrown toenail. There is some redness surrounding their paronychia but no obvious paronychia abscess. Skin a bit irritated at the insertion point of the ingrown hair. Denies fever. No other signs of cellulitis or infection here. She is quite uncomfortable. Having a lot of appointments downtown and walking a lot recently. Normally her primary care provider does this for her however they are out of town she was unable to get a hold of and she is uncomfortable. REVIEW OF SYSTEMS Constitutional: Negative for fatigue and fever. Musculoskeletal: Positive for gait problem. OBJECTIVE Initial Vitals Temperature Pulse Rate Heart Rate Resp Blood Pressure SpO2 09/24/17 1425 09/24/17 1425 -- -- 09/24/17 1425 09/24/17 1425 36.4 ??C 67 124/66 98 % Pain Score 09/24/17 1423 4 PHYSICAL EXAMINATION Constitutional: She appears well-developed. No distress. HENT: Head: Normocephalic. Eyes: EOM are normal. Pupils are equal, round, and reactive to light. Neck: Normal range of motion. Pulmonary/Chest: Effort normal. No tachypnea. Musculoskeletal: Focused examination of the great toe demonstrates some mild redness on the paronychia area but no evidence for abscess no fluctuance. The toenail is ingrown to the medial aspect. Tender to palpation. Skin: She is not diaphoretic. Psychiatric: She has a normal mood and affect. Her behavior is normal. ASSESSMENT/PLAN Impression and Plan Plan will be a digital block with removal of a wedge resection of the toenail. Update: Toe was numbed with bupivacaine. Digital block was successful. The lateral aspect of the left great toenail was rotated and cut. A wedge section of the nail was removed. There was some mild pusthat came out from what looked like a developing paronychia. Patient be discharged out.. I have reviewed and agree with the documentation by the medical student including: Past Medical Family Social History and Review of Systems. Kermit Be D.O. 09/24/17 7937 Kermit Be D.O. 09/24/17 7790 documented in this encounter Plan of Treatment Not on filedocumented as of this encounter Visit Diagnoses Diagnosis Ingrown Toenail - Primary documented in this encounter Administered Medications Inactive Administered Medications - up to 3 most recent administrations Medication Order MAR Action Action Date Dose Rate Site bupivacaine PF 0.5 % (5 mg/mL) Given 09/24/2017 2:15 PM CDT 150 mg injection 150 mg (MARCAINE) 150 mg (30 mL), infiltration, Once, On Fri09/24/17 at 1443, For 1 dose documented in this encounter Active and Recently Administered Medications Times are shown in CDT. Scheduled Medication Order 09/22/2017 09/23/2017 09/24/2017 bupivacaine PF 0.5 % (5 mg/mL) injection 150 mg (MARCAINE) (COMP LETED) 1415 (Given - Provider: Ronda Ramírez R.N.) 150 mg (30 mL), infiltration, Once, On Fri09/24/17 at 1443, For 1 dose documented in this encounter Additional Health Concerns Assessment Noted Time PHQ-9 Depression Total Score: 5 04/29/2016 10:10 AM CS T documented as of this encounter
--- OUTSIDE RECORDS SUMMARY | 2022-01-12 12:37 | XMS_ITS | Encounter Summary ---
:1955 Author Organization [facility] Address [address] [place] [address] Care Team Providers Name Role Phone Unavailable Primary Care Provider Unavailable Encounter Details Date Type Department Care Team Description 11/27/2015 Hospital Encounter HX RST PRC FACFEE ADULT Robin, Lokesh rivera M, BAG HANGER, FLEECE TIER [address] [place] [id number] (Wo rk) Social History Tobacco Use Types Packs/Day Years Used Date Smoking Tobacco: Never Assessed Alcohol Habits Answer Date Recorded How often [...] or relatives? How often do you attend druze or Never 2021 orthodoxy services? Do you belong to any clubs or Yes 12/12/2021 organizations such as druze groups, unions, fraternal or athletic groups, or [...] 0 04/17 100 mg capsule mouth daily. IRON,CARBONYL/ASCORBIC Take 1 tablet by 0 016 ACID (VITRON-C ORAL) mouth 2 (two) times a day. multivitamin tablet Take 1 tablet by 0 04/25/2011 mouth daily. pramipexole (MIRAPEX) Take 2-3 tablets by 0 08/28 0.125 mg tablet mouth 2 (two) times a day. 3 tabs in the afternoon, 2 tabs at bedtime acyclovir (for_ZOVIRAX) Take by mouth as 0 200812/24/2021 200 mg capsule needed. CALCIUM CARBONATE/VITAMIN Take 1 tablet by 0 02/05/201412/18/2021 D3 (CALCIUM WITH VITAMIN mouth 3 (three) D ORAL) times a day. loratadine (for_CLARITIN) Take 1 tablet by 0 09/1512/27/2021 10 mg tablet mouth daily. quinapril-hydroCHLOROthia Take 1 tablet by 0 09/1507/21/2017 zide (for_ACCURETIC) mouth daily. 20-12.5 mg per tablet valACYclovir (VALTREX) Take 1 tablet by 0 010 06/23/2020 1000 mg tablet mouth as needed. documented as of this encounter Plan of Treatment Not on filedocumented as of this encounter Visit Diagnoses Not on filedocumented in this encounter Additional Health Concerns Assessment Noted Time PHQ-9 Depression Total Score: 4 08/10/2015 9:06 AM CDT documented as of this encounter
--- OUTSIDE RECORDS SUMMARY | 2022-01-12 12:37 | XMS_ITS | Encounter Summary ---
:1955 Author Organization [facility] Address [address] [place] [address] Care Team Providers Name Role Phone Unavailable Primary Care Provider Unavailable Encounter Details Date Type Department Care Team Description 06/04/2016 Hospital Encounter HX [facility] Guido Man M.D. [address] [place] [address], [address] [place] [address] (Wo rk) Social History Tobacco Use Types Packs/Day Years Used Date Smoking Tobacco: Never Alcohol Habits Answer Date Recorded [...] or relatives? How often do you attend roman catholic or Never 2021 jew services? Do you belong to any clubs or Yes 12/12/2021 organizations such as roman catholic groups, unions, fraternal or athletic groups, [...] for the very basics like Not h nay at all 12/12/2021 food, housing, medical care, [...] Reading Time Taken Comments Blood Pressure 124/70 06/04/2016 2:33 PM CDT Pulse - - Temperature - - Respiratory Rate - - Oxygen Saturation - - Inhaled Oxygen Concentration - - Weight 121 kg (266 lb 12.1 oz) 06/04/2016 2:33 PM CDT Height - - Body Mass Index 39.51 08/11/2015 10:46 AM CDT documented in this encounter Medications at Time of Discharge Medication Sig Dispensed Refills Start Date End Date co-enzyme Q-10 (CO Q-10) Take 1 capsule by 0 04/17 100 mg capsule mouth daily. FSH/FLX/PRIM/CUR/BOR/OM3, Take 1 capsule by 0 6,9 5 (OMEGA 3-6-9 FATTY mouth daily. ACIDS ORAL) IRON,CARBONYL/ASCORBIC Take 1 tablet by 0 016 ACID (VITRON-C ORAL) mouth 2 (two) times a day. multivitamin tablet Take 1 tablet by 0 04/25/2011 mouth daily. pramipexole (MIRAPEX) Take 2-3 tablets by 0 08/28 0.125 mg tablet mouth 2 (two) times a day. 3 tabs in the afternoon, 2 tabs at bedtime venlafaxine XR (EFFEXOR Take 1 capsule by 0 03/19 XR) 150 mg 24 hr capsule mouth daily. With 75 mg capsule = 225 mg total dose acyclovir (for_ZOVIRAX) Take by mouth as 0 200812/24/2021 200 mg capsule needed. aspirin [address] tablet Take 81 mg by mouth 0 07/21/2017 daily. CALCIUM CARBONATE/VITAMIN Take 1 tablet by 0 02/0 05/201412/18/2021 D3 (CALCIUM WITH VITAMIN mouth 3 (three) D ORAL) times a day. loratadine (for_CLARITIN) Take 1 tablet by 0 09/1512/27/2021 10 mg tablet mouth daily. quinapril-hydroCHLOROthia Take 1 tablet by 0 09/1507/21/2017 zide (for_ACCURETIC) mouth daily. 20-12.5 mg per tablet valACYclovir (VALTREX) Take 1 tablet by 0 010 06/23/2020 1000 mg tablet mouth as needed. documented as of this encounter Progress Notes Yobani Man M.D. - 06/04/2016 1:58 PM CDT [id number] CHIEF COMPLAINT/REASON FOR VISIT Follow up left shoulder pain, bilateral foot pain and bilateral lower extremity paresthesias. HSTORY OF PRESENT ILLNESS Ms. Adames returns today in followup. She continues to describe pain is located in her leftshoulder. This is located in the anterolateral left shoulder into the AC joint. 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 Ms. Adames also continues to describe bilateral lower extremity paresthesias and difficulties with her restless legs syndrome that have been worsening for her over the past couple of months. PHYSICAL EXAMINATION Pleasant 61-year-old female in no acute distress. Shoulder forward elevation is to 150 degrees on the left and abduction is 160 degrees on the left. There is tenderness to palpation of the left anterior subacromial space. Normal strength testing of rotator cuff musculature bilaterally. Positive Neer's, positive Shine on the left. IMPRESSION/REPORT/PLAN 1. Bilateral lower extremity paresthesias. 2. Peripheral neuropathy. 3. Lumbar spinal stenosis. 4. Lumbar spondylosis. 5. Fibromyalgia. 6. Left shoulder pain. PLAN: 1. I am going to proceed today with an ultrasound-guided left subacromial/subdeltoid bursa corticosteroid injection. Please see separate note dictated for details of this procedure. 2. I am going to refer Ms. Adames to see Dr. Valdez, neurologist, with respect to her paresthesias in her bilateral lower extremities. I discussed with her there may not be anything else to do at this point but I would like to obtain Dr. Valdez's opinion with respect to that as well. She is having significant sleep disturbance and I think any input that he has with respect to that would be very helpful as well and Ms. Adames is in agreement with this. 3. We will plan on being in contact with Ms. Adames in 2 weeks to assess her progress following today's procedure and she knows to be in contact with us prior to that time if she notes any worsening or worrisome symptoms which we went over in detail today. She voiced agreement and understanding with this plan. Yobani Man M.D./veena Electronically Signed By: YOBANI MAN MD On: 06/05/2016 04:13 PM Modified by and Electronically Signed by: YOBANI MAN MD On: 06/05/2016 04:13 PM Source: [facility] MHSDOLBEYNONRADSYS Document Id: [id number] documented in this encounter Procedure Notes Yobani Man M.D. - 06/04/2016 12:00 AM CDT 1RPT DIAGNOSIS: Left shoulder pain. HISTORY/INDICATION: Please see my clinical note date 06/04/2016 for details of the HPI. PROCEDURE PERFORMED: Ultrasound-guided left subacromial/subdeltoid bursa corticosteroid injection. PATIENT EDUCATION: Ready to learn. No apparent learning barriers were identified. Learning preferences include listening. Explained diagnosis and treatment of plan. The patient expressed understanding of the content. Following denial of allergy and review of potential side effects and complications including but notnecessarily limited to infection, allergic reaction, local tissue breakdown, systemic effects of corticosteroids, elevation of blood glucose, injury to soft tissues and/or nerves and seizure, the patient indicated understanding and agreed to proceed. Signed informed consent was obtained. The use of direct ultrasound visualization of the needle (rather than a non- guided injection) was required to increase patient safety by excluding inadvertent intramuscular or intratendinous placement and minimizing bleeding by avoiding osteochondral or vascular injury from the needle. Additionally, the increased accuracy of placement may increase clinical effectiveness and will allow higher diagnostic specificity when evaluating effectiveness of this injection. DESCRIPTION OF PROCEDURE: Prior to starting the procedure, a pause was performed to confirm the patients name, affected area and proposed procedure. The patient was placed in a lateral decubitus position. Next, an optimal, ultrasound image of the left subacromial/subdeltoid bursa was obtained with a 12-5 linear array transducer. A pre-procedure image was saved to the hard drive. Following this, the area was prepped with a ChloraPrep scrub x2, then re-examined using the same transducer, a sterile ultrasound transducer cover, and sterile ultrasound transducer gel. Real time ultrasound was used to guide a 25-gauge 2-inch needle into the subacromial/subdeltoid bursa. After visualization of the tip in the target area and negative aspiration for blood, a mixture of 4 mL of 1% lidocaine and 1 mL of 40 mg/mL of Depo-Medrol was delivered to the target area while observing injectate flow with real time ultrasonographic imaging. The injectate was delivered without complications. Zero mL of Depo-Medrol were wasted due to single use vials for infection control purposes. The patient tolerated the procedure well. She was observed for an appropriate amount of time and discharged under her own power. She was given my card and instructed to contact me with any questions pertaining to the injection. She was also instructed that should she experience any fever, chills, excessive redness at the injection site, or numbness or weakness, she should phone me immediately. She was instructed that she should use ice over the area of injection, and limit activity for the rest of the day. ADDITIONAL INSTRUCTIONS: Ms. Adames will be in contact with us if she has any difficulty following todays procedure. Otherwise, we will plan on being in contact with her over the phone in two weeks to assess her progress. She voiced agreement and understanding with this plan. Yobani Man M.D./della Electronically Signed By: YOBANI MAN MD On: 06/05/2016 11:07 AM Modified by and Electronically Signed by: YOBANI MAN MD On: 06/05/2016 11:07 AM Source: [facility] MHSDOLBEYNONRADSYS Document Id: [id number] documented in this encounter Miscellaneous Notes Miscellaneous - Brennan Le L.P.N. - 06/04/2016 3:23 PM CDT Reminder Msg Document Contains Addenda Addendum by ION GILMORE LPN on June 19, 2016 09:19:18 CDT From: ION GILMORE LPN ( Physical Medicine and Rehabilitation Staff) To: YOBANI MAN MD; Sent: 06/19/2016 09:19:18 CDT Show up: 06/19/2016 09:18:00 CDT Subject: RE: Reminder Msg Addendum by ION GILMORE LPN on June 19, 2016 09:18:52 CDT Called patient for follow up and patient states that injection has provided her with 90% pain relief, she is rating that pain as a 1/10. Pt has not needed to take any pain medications or put any ice or heat on this area. Pt verbalized pain relief and was very pleased with injection results. From: BRENNAN LE LPN ( Physical Medicine and Rehabilitation Staff) To: Physical Medicine and Rehabilitation Staff; Sent: 06/04/2016 15:23:57 CDT Show up: 06/18/2016 15:23:00 CDT Subject: Reminder Msg Please Remember to: Call Patient to see how she is doing after left subacromial injection. PATIENT: ( X ) Call Patient ( ) Ask Patient to ( ) ( ) Call Relative ( ) Schedule Patient ( ) ( ) Call for Senior Gl Accountant ( ) Follow up on Results ( ) Other: PROVIDER: ( ) Call Physician ( ) Call Pharmacist ( ) Call Lab ( ) Other: Special Instructions: Comments: Source: [facility] POWERCHART Document Id: [id number] Miscellaneous - Yobani Man M.D. - 06/04/2016 3:20 PM CDT Ambulatory Patient Summary [address] [id number] Visit Information Name: EMMAYAZ CHRISTOPHER [facility] Number: [id number] Current Date: 06/04/2016 15:20:03 Physicians Attending Provider: YOBANI MAN MD Primary Care Provider: PCP, GABE YAZ ADAMES has been given the following list of follow-up instructions, medication list, and patient education materials: Follow-up Instructions Your Medications Here is a list of your medications. It is important to take your medications as directed. Use a pillbox or chart to help remind you to take your medications. Please let your doctor or nurse know if you have problems taking your medications. Medication/Strength How to Take Indications/Special Instructions/Comments/Notes for Patient Medication Changes/Routing aspirin (Aspirin Low Dose) 81 mg, Oral, once a day calcium-vitamin D (Calcium 600+D) 1 Tablet(s), Oral, three times a day hydrochlorothiazide-quinapril (hydrochlorothiazide -quinapril 12.5mg- 20mg) 1 Tablet(s), Oral, once a day *lidocaine topical (Lidoderm 5% topical film) 1 patch(es), Topical, once a day Apply to intact skin and remove patch after a maximum of 12 hr of application within a 24 hr period loratadine (loratadine 10 mg oral tablet) 1 Tablet(s), Oral, once a day multivitamin (multivitamin) omega-3 polyunsaturated fatty acids (Fish Oil 1000 mg oral capsule) 1 cap, Oral, once a day *pramipexole (Mirapex 0.125 mg oral tablet) 2 Tablet(s), Oral, once a day pregabalin (Lyrica 150 mg oral capsule) 1 cap, Oral, two times a day pregabalin (Lyrica 50 mg oral capsule) 1 cap, Oral, once a day venlafaxine (Effexor XR 150 mg oral capsule, extended release) 1 cap, Oral, once a day * You have let us know that you are not taking this medication as listed. Please talk with your primary care provider or the health care provider who prescribed the medication as soon as possible. Stop Taking the Following Medications: Medication list as of 06-04-16 15:20 Attention: If you have any medications at home that are not on this list, DO NOT take them until youcontact your provider for clarification. Give a copy of your medication list to your primary care provider. Update your medication list any time medications or doses are changed and carry your medication list at all times in case of emergency. Electronically Signed By: YOBANI MAN MD Signed On:04-JUN-2016 15:19:07 Your Allergies & Intolerances Substance Reaction Symptoms Category Comments penicillins Drug Your Problem List Problem Status Onset Comments No Chronic Problems Active Your Upcoming Appointments Date Time Location Provider No Appointments found Attention: Contact your local Clinic if further appointment detail needed. Consider Using Patient Online Services Patient Online Services is a secure online and Mobile application that lets you: ?? View lab and test results ?? View portions of your medical record including clinical notes, immunizations and discharge summaries ?? Request an appointment or medication refill ?? Review your appointment schedule ?? Send secure messages to your care team Its easy to create an account if you dont have one. Go to [email or web address] and click on Create Your Account. Then, follow the directions to complete the online form. Youll be asked for your [facility] number which you can find at the top of this document. Your Goals/Additional instructions: Source: [facility] POWERCHART Document Id: [id number] Miscellaneous - Yobani Man M.D. - 06/04/2016 3:20 PM CDT Ambulatory Discharge Medication List [address] [id number] Visit Information Name: YAZ ADAMES [facility] Number: [id number] Current Date: 06/04/2016 15:20:02 Attending Provider: YOBANI MAN MD Primary Care Provider: PCP, YAZ SLOAN has been given the following list of medications: Your Medications It is important to take your medications as directed. Use a pill box or chart to help remind you to take your medications. Please let your doctor or nurse know if you have problems taking your medications. Medication/Strength How to Take Indications/Special Instructions/Comments/Notes for Patient Medication Changes/Routing aspirin (Aspirin Low Dose) 81 mg, Oral, once a day calcium-vitamin D (Calcium 600+D) 1 Tablet(s), Oral, three times a day hydrochlorothiazide-quinapril (hydrochlorothiazide -quinapril 12.5mg- 20mg) 1 Tablet(s), Oral, once a day *lidocaine topical (Lidoderm 5% topical film) 1 patch(es), Topical, once a day Apply to intact skin and remove patch after a maximum of 12 hr of application within a 24 hr period loratadine (loratadine 10 mg oral tablet) 1 Tablet(s), Oral, once a day multivitamin (multivitamin) omega-3 polyunsaturated fatty acids (Fish Oil 1000 mg oral capsule) 1 cap, Oral, once a day *pramipexole (Mirapex 0.125 mg oral tablet) 2 Tablet(s), Oral, once a day pregabalin (Lyrica 150 mg oral capsule) 1 cap, Oral, two times a day pregabalin (Lyrica 50 mg oral capsule) 1 cap, Oral, once a day venlafaxine (Effexor XR 150 mg oral capsule, extended release) 1 cap, Oral, once a day * You have let us know that you are not taking this medication as listed. Please talk with your primary care provider or the health care provider who prescribed the medication as soon as possible. Stop Taking the Following Medications: Medication list as of 06-04-16 15:20 Attention: If you have any medications at home that are not on this list, DO NOT take them until youcontact your provider for clarification. Give a copy of your medication list to your primary care provider. Update your medication list any time medications or doses are changed and carry your medication list at all times in case of emergency. Electronically Signed By: YOBANI MAN MD Signed On:04-JUN-2016 15:19:07 Additional Information: Source: [facility] POWERCHART Document Id: [id number] Miscellaneous - Kate Giraldo L.PCandyN. - 06/04/2016 2:33 PM CDT Adult Chip Unloader Intake/History Adult Chip Unloader Intake/History Entered On: 06/04/2016 14:35 CDT Performed On: 06/04/2016 14:33 CDT by KATE GIRALDO LPN Intake Systolic Blood Pressure : 124 mmHg Diastolic Blood Pressure : 70 mmHg NIBP Mean : 88 mmHg BP Location : Left upper extremity Blood Pressure Cuff Size : Large Actual Weight : 121.0 kg(Converted to: 266 lb 12 oz) Dosing Weight Clinic : 121 kg KATE GIRALDO LPN - 06/04/2016 14:33 CDT General Info Information Given By : Patient Languages : Slovak Is Patient Female and 13-50 no hysterectomy : No KATE GIRALDO LPN - 06/04/2016 14:33 CDT Subjective Pain Symptoms : No KATE GIRALDO LPN - 06/04/2016 14:33 CDT Dependent Habits Exposure to Tobacco Smoke : Other: never Smoking Status : Never smoker Tobacco 2A : No Tobacco Use/Currently Using : No Tobacco Use/Last 30 Days : No Tobacco Use/Last 12 months : No KATE GIRALDO LPN - 06/04/2016 14:33 CDT [facility] Document Id: [id number] CDT!22 documented in this encounter Plan of Treatment Not on filedocumented as of this encounter Visit Diagnoses Not on filedocumented in this encounter Additional Health Concerns Assessment Noted Time PHQ-9 Depression Total Score: 5 04/29/2016 10:10 AM CS T documented as of this encounter
--- OUTSIDE RECORDS SUMMARY | 2022-01-12 12:37 | XMS_ITS | Encounter Summary ---
:1955 Author Organization [facility] Address [address] [place] [address] Care Team Providers Name Role Phone Unavailable Primary Care Provider Unavailable Encounter Details Date Type Department Care Team Description 12/04/2015 Hospital Encounter [facility]X [facility] Guido Man M.D. [address] [place] [address], [address] [place] [address] (Wo rk) Social History Tobacco [...] do you attend quaker or Never 2021 worship services? Do you [...] daily. quinapril-hydroCHLOROthia Take 1 tablet by 0 2 08/200907/21/2017 zide (for_ACCURETIC) mouth daily. 20-12.5 mg per tablet valACYclovir (VALTREX) Take 1 tablet by 0 010 06/23/2020 1000 mg tablet mouth as needed. documented as of this encounter Progress Notes Yobani Man M.D. - 12/04/2015 3:06 PM CDT [id number] CHIEF COMPLAINT/REASON FOR VISIT Follow up low back pain, right hip pain, and new issue of right lateral elbow and dorsal forearm pain. HISTORY OF PRESENT ILLNESS Ms. Caro returns today in followup. She did have a good trip to [place]. She was able to walk which she was pleased with. She still experienced the pain in her low back and her right lateralhip but she implemented many tools that she learned [facility] and was the most active she has ever been on one of her trips to [place], which is excellent. She has been more active performing knitting and has developed some pain in the right lateral elbow that can radiate into the right dorsal aspect of the forearm. She denies any paresthesias in right upper extremity or any focal weakness in the right upper extremity. PHYSICAL EXAMINATION GENERAL: Pleasant 60-year-old female in no acute distress. EXTREMITIES: Elbow full range of motion of the right elbow as compared to the left. She has tenderness to palpation directly over the right lateral epicondyle as well as extending distally into the common extensor mass. Negative Cozen test. Mildly positive resisted third digit extension test on the right. IMPRESSION/REPORT/PLAN 1. Right greater trochanteric pain syndrome. 2. Low back pain. 3. Lumbar spondylosis. 4. Lumbar spinal stenosis. 5. Fibromyalgia. 6. Right lateral elbow and dorsal forearm pain. PLAN: 1. I am going to have Ms. Caro return to her aquatic-based rehabilitation program which she has peformed in the past for her low back and right lateral hip pain. We discussed that in detail today. 2. Ms. Caro has been doing an excellent job of using her exercise bike 30 minutes daily, which is excellent. We did discuss the possibility as well of finding someone that she could walk with in the afternoon as that has been very helpful for her in the past as well. 3. I am going have her involved in occupational therapy and gave her a detailed prescription for this which she will initiate in [place]. 4. Ms. Caro will contact me if she notes any worsening or worrisome symptoms which we went over in detail today. She voiced agreement and understanding with this plan. Total time 30 minutes, counseling time greater than 20 minutes. Yobani Man M.D./veena Electronically Signed By: YOBANI MAN MD On: 12/18/2015 02:22 PM Modified by and Electronically Signed by: YOBANI MAN MD On: 12/18/2015 02:22 PM Source[facility] Document Id: [id number] documented in this encounter Miscellaneous Notes Miscellaneous - Priscilla Angle R.N. - 02/26/2016 9:40 AM CST refill request - Lyrica Document Contains Addenda Addendum by PRISCILLA ANGEL RN on February 27, 2016 13:53:12 NON MORSE INTERCEPT TECHNICIAN called to the pharmacy. Addendum by YOBANI MAN MD on February 27, 2016 12:19:50 NON MORSE INTERCEPT TECHNICIAN From: YOBANI MAN MD To: [place] Medication Refill; Sent: 02/27/2016 12:19:50 NON MORSE INTERCEPT TECHNICIAN Subject: RE: refill request - Lyrica Please call. Thanks. Addendum by YOBANI MAN MD on February 27, 2016 12:19:41 NON MORSE INTERCEPT TECHNICIAN Approved Order:pregabalin (Lyrica 150 mg oral capsule) 1 cap(s) PO 2xDay Qty: 60 cap(s) Refills: 5 Substitutions Allowed Print - [id number] Signed by YOBANI MAN MD 02/27/2016 12:19:35 From: PRISCILLA ANGEL RN ( [place] Medication Refill) To: YOBANI MAN MD; Sent: 02/26/2016 09:40:02 NON MORSE INTERCEPT TECHNICIAN Subject: refill request - Lyrica On hold pending signature Order:pregabalin (Lyrica 150 mg oral capsule) 1 cap(s) PO 2xDay Qty: 60 cap(s) Refills: 5 Substitutions Allowed Print - [id number] Caller is: ( ) Patient ( ) Mother ( ) Father ( ) Spouse ( ) Daughter ( ) Son ( x ) Pharmacy ( ) Other: Provider: [facility] Name of Medications Needing Refill: Lyrica Last Refill Date: 01/29/16 Additional Information: Last / Future Appointment: 12/04/15 Disposition: ( x ) Send to Pharmacy ( ) Call to Pharmacy ( ) 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 - 12/04/2015 3:51 PM CDT Ambulatory Patient Summary [address] [id number] Visit Information Name: KHRISMATTSONELYAZ [facility] Number: [id number] Current Date: 12/04/2015 15:51:07 Physicians Attending Provider: YOBANI MAN MD Primary Care Provider: PCP, ELSEWHERE YAZ CARO has been given the following list of [...] Take Indications/Special Instructions/Comments/Notes for Patient Medication Changes/Routing calcium-vitamin D (Calcium 600+D) 1 Tablet(s), Oral, three times a day duloxetine (Cymbalta 60 mg oral delayed release capsule) 2 cap, Oral, once a day hydrochlorothiazide-quinapril (hydrochlorothiazide -quinapril 12.5mg- 20mg) 1 Tablet(s), Oral, once a day lidocaine topical (Lidoderm 5% topical film) 1 patch(es), Topical, once a day Apply to intact skin and remove patch after a maximum of 12 hr of application within a 24 hr period loratadine (loratadine 10 mg oral tablet) 1 Tablet(s), Oral, once a day multivitamin (multivitamin) pramipexole (Mirapex 0.125 mg oral tablet) 2 Tablet(s), Oral, once a day pregabalin (Lyrica 150 mg oral capsule) 1 cap, Oral, two times a day simvastatin (simvastatin) Oral, once a day (at bedtime) Stop Taking the Following Medications: Medication list as of 12-04-15 15:51 Attention: If you have any medications at [...] Electronically Signed By: YOBANI MAN MD Signed On:04-DEC-2015 15:50:37 Your Allergies & Intolerances Substance Reaction Symptoms [...] if you dont have one. [facility] to [email or web address] and click on Create Your Account. Then, follow the directions to complete the online form. Youll be asked for your [facility] number which you can find at the top of this document. Your Goals/Additional instructions: Source: [facility] POWERCHART Document Id: [id number] Miscellaneous - Yobani Man M.D. - 12/04/2015 3:51 PM CDT Ambulatory Discharge Medication List [address] [id number] Visit Information Name: YAZ CARO [facility] Number: [id number] Visit Date: 12/04/2015 15:51:06 Attending Provider: YOBANI MAN MD Primary Care Provider: PCP, ELSEWHERE YAZ CARO has been given the following list of medications: Your Medications It is important to take your medications as directed. Use a pill box or chart to help remind you to take your medications. Please let your doctor or nurse know if you have problems taking your medications. Medication/Strength How to Take Indications/Special Instructions/Comments/Notes for Patient Medication Changes/Routing calcium-vitamin D (Calcium 600+D) 1 Tablet(s), Oral, three times a day duloxetine (Cymbalta 60 mg oral delayed release capsule) 2 cap, Oral, once a day hydrochlorothiazide-quinapril (hydrochlorothiazide -quinapril 12.5mg- 20mg) 1 Tablet(s), Oral, once a day lidocaine topical (Lidoderm 5% topical film) 1 patch(es), Topical, once a day Apply to intact skin and remove patch after a maximum of 12 hr of application within a 24 hr period loratadine (loratadine 10 mg oral tablet) 1 Tablet(s), Oral, once a day multivitamin (multivitamin) pramipexole (Mirapex 0.125 mg oral tablet) 2 Tablet(s), Oral, once a day pregabalin (Lyrica 150 mg oral capsule) 1 cap, Oral, two times a day simvastatin (simvastatin) Oral, once a day (at bedtime) Stop Taking the Following Medications: Medication list as of 12-04-15 15:51 Attention: If you have any medications at [...] Electronically Signed By: YOBANI MAN MD Signed On:04-DEC-2015 15:50:37 Additional Information: Source: [facility] POWER[facility]ART Document Id: [id number] documented in this encounter Plan of Treatment Not on filedocumented as of this encounter Visit Diagnoses Not on filedocumented in this encounter Additional Health Concerns Assessment Noted Time PHQ-9 Depression Total Score: 4 08/10/2015 9:06 AM CDT documented as of this encounter
--- OUTSIDE RECORDS SUMMARY | 2022-01-12 12:37 | XMS_ITS | Encounter Summary ---
:1955 Author Organization [facility] Address [address] [place] [address] Care Team Providers Name Role Phone Unavailable Primary Care Provider Unavailable Encounter Details Date Type Department Care Team Description 08/29/2016 Hospital Encounter [facility]X [facility] NEUROLOGY Meghna Valdez M.D., M.P.H. [address] [place] [address] (Wo rk) Social History Tobacco Use [...] or relatives? How often do you attend mosque or Never 2021 restorationism services? Do you belong to any clubs or Yes 12/12/2021 organizations such as mosque groups, unions, fraternal or athletic groups, or [...] or slept in a halfway (including now)? Sex Assigned at Date Recorded Female 07/21/2017 2:58 PM CDT documented as of this encounter Last Filed Vital Signs Vital Sign Reading Time Taken Comments Blood Pressure 139/60 08/29/2016 1:15 PM CDT Pulse 70 08/29/2016 1:15 PM CDT Temperature - - Respiratory Rate 24 08/29/2016 1:15 PM CDT Oxygen Saturation - - Inhaled Oxygen Concentration - - Weight 122 kg (269 lb 13.5 oz) 08/29/2016 1:15 PM CDT Height - - Body Mass Index 39.97 08/11/2015 10:46 AM CDT documented in this encounter Medications at Time of Discharge Medication Sig Dispensed Refills Start Date End Date co-enzyme Q-10 (CO Q-10) Take 1 capsule by 0 04/17 100 mg capsule mouth daily. FSH/FLX/PRIM/CUR/BOR/OM3 Take 1 capsule by 0 04/17 ,6,9 5 (OMEGA 3-6-9 mouth daily. FATTY ACIDS ORAL) IRON,CARBONYL/ASCORBIC Take 1 tablet by [...] mg by mouth 0 07/21/2017 daily. CALCIUM Take 1 tablet by 0 04/19/2014 12/19/19 22 CARBONATE/VITAMIN D3 mouth 3 (three) times (CALCIUM WITH VITAMIN D a day. ORAL) lidocaine (LIDODERM) 5 % Apply topically as 0 07/21/2017 patch needed. loratadine Take 1 tablet by 0 10/09/2009 12/28/19 22 (for_CLARITIN) 10 mg mouth daily. tablet melatonin 3 mg tablet Take 1 tablet by 0 08/29/19 17 07/21/2017 mouth. pregabalin (LYRICA) 150 Take 1 capsule by 0 08/1303/28/2017 mg capsule mouth 2 (two) times a day. quinapril-hydroCHLOROthi Take 1 tablet by 0 10/0907/21/2017 azide (for_ACCURETIC) mouth daily. 20-12.5 mg per tablet SENNOSIDES/DOCUSATE Take 3 tablets by 0 7 06/23/2020 SODIUM (SENNA WITH mouth daily. DOCUSATE SODIUM ORAL) valACYclovir (VALTREX) Take 1 tablet by 0 010 06/23/2020 1000 mg tablet mouth as needed. documented as of this encounter Progress Notes Lani Valdez M.D., M.P.H. - 08/29/2016 1:01 PM CDT [id number] CHIEF COMPLAINT/REASON FOR VISIT Peripheral neuropathy. HISTORY OF PRESENT ILLNESS Yaz is a 61-year-old woman whom I have seen in the past and, on June 27, I wrote a note detailing her neuropathy and her evaluation of same at [facility]. She had evidence of an axonalpolyneuropathy. She has also diastolic dysfunction, cervical stenosis, severe small-fiber neuropathy, obstructive sleep apnea. She comes in today stating that her feet hurt her much more than he used to. She was in [place], somewhere near [place], visiting her mother who was injured and she had to walk a great deal because of the public transportation system in [place] and she says her feet are swollen and her feet hurt more. She said walking has made them hurt more. She is presently wearing supporthose. She says that she was told that the neuropathy is likely causing her swelling in her feet. Medications are unchanged from her prior visits. SYSTEMS REVIEW CONSTITUTIONAL: Tired all the time. EYES: Dry eyes, stinging. EAR, NOSE, THROAT: Congestion, sinus pain. CARDIOVASCULAR: Palpitations off and on. Feet have been swelling for the last 2 weeks. RESPIRATORY: Dyspnea on exertion. GASTROINTESTINAL: Constipation. MUSCULOSKELETAL: Back pain, arthritis, fibrom yalgia. SKIN: Elbows, hands, groin area rash. MEDICATIONS Pregabalin 150 two times a day and 50 one time a day. [place]-3 fish oil. Aspirin 81 mg. Venlafaxine XR 150 mg 1 time a day. Pramipexole 0.125 one time a day. Multivitamin. Loratadine 10 mg 1 time a day. Hydrochlorothiazide/quinapril 12.5/20 one tablet daily. PHYSICAL EXAMINATION GENERAL: The patient does in fact appear tired but she is in no acute distress. VITAL SIGNS: Her blood pressure is 139/60, peripheral pulse is 70, respiratory rate is 24. She weighs 122.4 kg. Her Mobile sleepiness score today was 9 but she did not answer 2 questions, including watching TV and lying down to rest in the afternoon. She said N/A. NEUROLOGIC: Cranial nerves II through XII are normal. Her motor examination reveals normal bulk, tone, and strength throughout. She has no pronator drift. Alternating rapid movements are normal bilaterally. EXTREMITIES: Her lower extremities, in fact, have a little bit of edema but her neurologic exam is unchanged. She does have some support hose on that go up to mid calf. She said the swelling has been going on since she was gone to [facility] to see her mother. IMPRESSION/REPORT/PLAN 1. The edema in her feet I think is unlikely to be neuropathic. Barrett has been associate with peripheral edema but that has not changed. I worry that it is more likely related to a cardiac or metabolic problem. 2. Obstructive sleep apnea. Patient is using 10 cm of water pressure with 2 L of oxygen and says that she is sleeping reasonably well. What interferes with her sleep is the pain from her feet and she has gotten a device that alternates pressure from side to side and she just got that last night so sheis trying that to see if that is helpful. Dr. Man has prescribed lidocaine ointment that she is going to try and see if that helps. I do not want to make any interventions in her sleep at this point.I do not see any reason to do any other evaluation for her neuropathy. I think that has been adequately evaluated. She brings in a sleep log showing that she is only getting 4 or 5 hours sleep and sleep is sometimesinterrupted. I have asked her to keep a sleep log after she tries the lidocaine ointment and with the new sleeping device to see whether that is helpful. I do not know if the PLMs are better or not. I probably would have to have another sleep study to see but we are treating that. I will plan to see her back in 2 months. Total time together was over 40 minutes. Lani Valdez M.D./veena Electronically Signed By: LANI VALDEZ MD MPH On: 08/30/2016 02:51 PM Modified by and Electronically Signed by: LANI VALDEZ MD MPH On: 08/30/2016 02:51 PM Source: [facility] MHSDOLBEYNONRADSYS Document Id: [id number] documented in this encounter Nursing Notes Maninder Mena CCandyM.ACandy - 08/30/2016 10:50 AM CDT Prior Authorizatin request for Lidocaine Prior Authorization request for Lidocaine completed through cover my meds, posadas [id number] time spent onrequest 20 minutes . Electronically Signed By: MANINDER MENA CMA On: 08/30/2016 10:50 AM Source: [facility] [employer] Document Id: [id number] documented in this encounter Miscellaneous Notes Miscellaneous - Lani Valdez M.D., M.P.H. - 08/29/2016 4:12 PM CDT Ambulatory Patient Summary [address] [id number] Visit Information Name: YAZ ADAMES [facility] Number: [id number] Current Date: 08/29/2016 16:12:21 Physicians Attending Provider: LANI VALDEZ MD MPH Primary Care Provider: PCPGABE REGINE has been given the following list of [...] 1 Tablet(s), Oral, three times a day docusate-senna (Senna S) 2 Tablet(s), Oral, two times a day hydrochlorothiazide-quinapril (hydrochlorothiazide -quinapril 12.5mg- 20mg) 1 Tablet(s), Oral, once a day *lidocaine topical (Lidoderm 5% topical film) 1-2 patches, Topical, once a day Apply to intact skin and remove patch after a maximum of 12 hr of application within a 24 hr period loratadine (loratadine 10 mg oral tablet) 1 Tablet(s), Oral, once a day melatonin (melatonin 3 mg oral tablet) 1 Tablet(s), Oral multivitamin (multivitamin) omega-3 polyunsaturated fatty acids (Fish Oil 1000 mg oral capsule) 1 cap, Oral, once a day *pramipexole (Mirapex 0.125 mg oral tablet) 2 Tablet(s), Oral, once a day pregabalin (Lyrica 50 mg oral capsule) 1 cap, Oral, once a day pregabalin (Lyrica 150 mg oral capsule) 1 cap, Oral, two times a day venlafaxine (Effexor XR 150 mg oral capsule, extended release) 1 cap, Oral, once a day * You have let us know that you are not taking this medication as listed. Please talk with your primary care provider or the health care provider who prescribed the medication as soon as possible. Stop Taking the Following Medications: Medication list as of 08-29-16 16:12 Attention: If you have any medications at home that are not on this list, DO NOT take them until youcontact your provider for clarification. Give a copy of your medication list to your primary care provider. Update your medication list any time medications or doses are changed and carry your medication list at all times in case of emergency. Electronically Signed By: LANI VALDEZ MD MPH Signed On:29-AUG-2016 16:12:18 Your Allergies & Intolerances Substance Reaction Symptoms Category Comments penicillins Drug Your Problem List Problem Status Onset Comments Apnea Sleep Obstructive (CARLOS) Active Edema Leg NOS Active Neuropathy Peripheral NOS Active Hypersomnia NOS Active Your Upcoming Appointments Date Time Location Provider 09/24/2016 14:00 [facility] PM&R Vivek Man MD 11/07/2016 13:35 [facility] Neurology Lani Valdez MD Attention: Contact your local Clinic if further [...] have one. Go to [email or web address] and click on Create Your Account. Then, follow the directions to complete the online form. Youll be asked for your [facility] number which you can find at the top of this document. Your Goals/Additional instructions: Source: [facility] POWERCHART Document Id: [id number] Miscellaneous - Lani Valdez M.D., M.P.H. - 08/29/2016 4:12 PM CDT Ambulatory Discharge Medication List [address] [id number] Visit Information Name: YAZ ADAMES [facility] Number: [id number] Current Date: 08/29/2016 16:12:20 Attending Provider: LANI VALDEZ MD MPH Primary Care Provider: PCP, ELSEWHERE YAZ ADAMES has been given the following [...] 1 Tablet(s), Oral, three times a day docusate-senna (Senna S) 2 Tablet(s), Oral, two times a day hydrochlorothiazide-quinapril (hydrochlorothiazide -quinapril 12.5mg- 20mg) 1 Tablet(s), Oral, once a day *lidocaine topical (Lidoderm 5% topical film) 1-2 patches, Topical, once a day Apply to intact skin and remove patch after a maximum of 12 hr of application within a 24 hr period loratadine (loratadine 10 mg oral tablet) 1 Tablet(s), Oral, once a day melatonin (melatonin 3 mg oral tablet) 1 Tablet(s), Oral multivitamin (multivitamin) omega-3 polyunsaturated fatty acids (Fish Oil 1000 mg oral capsule) 1 cap, Oral, once a day *pramipexole (Mirapex 0.125 mg oral tablet) 2 Tablet(s), Oral, once a day pregabalin (Lyrica 50 mg oral capsule) 1 cap, Oral, once a day pregabalin (Lyrica 150 mg oral capsule) 1 cap, Oral, two times a day venlafaxine (Effexor XR 150 mg oral capsule, extended release) 1 cap, Oral, once a day * You have let us know that you are not taking this medication as listed. Please talk with your primary care provider or the health care provider who prescribed the medication as soon as possible. Stop Taking the Following Medications: Medication list as of 08-29-16 16:12 Attention: If you have any medications at home that are not on this list, DO NOT take them until youcontact your provider for clarification. Give a copy of your medication list to your primary care provider. Update your medication list any time medications or doses are changed and carry your medication list at all times in case of emergency. Electronically Signed By: LANI VALDEZ MD MPH Signed On:29-AUG-2016 16:12:18 Additional Information: Source: [facility] POWERCHART Document Id: [id number] Miscellaneous - Analy Jung L.P.N. - 08/29/2016 2:46 PM CDT Mobile Sleepiness Scale Mobile Sleepiness Scale Entered On: 08/29/2016 14:46 CDT Performed On: 08/29/2016 14:46 CDT by ANALY JUNG LPN Mobile Sleepiness Scale Mobile sitting and reading : Moderate chance of dozing Mobile watching TV : No chance of dozing Mobile sitting in public : Slight chance of dozing Mobile passenger in car : Moderate chance of dozing Mobile in a car stopped in traffic : Slight chance of dozing Mobile Lying down to rest : No chance of dozing Mobile sitting and talking : Slight chance of dozing Mobile sitting quietly after lunch : Moderate chance of dozing Mobile Total Score : 9 ANALY JUNG LPN - 08/29/2016 14:46 CDT [facility] Document Id: [id number] CDT!11 Miscellaneous - Analy Jung L.P.N. 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 Intake/History Entered On: 08/29/2016 13:21 CDT Performed On: 08/29/2016 13:15 CDT by ANALY JUNG LPN Intake Chief Complaint : Recheck from 06/27/16 sleep disturbance Peripheral Pulse Rate : 70 /min Respiratory Rate : 24 /min (HI) Systolic Blood Pressure : 139 mmHg Diastolic Blood Pressure : 60 mmHg NIBP Mean : 86 mmHg BP Location : Left upper extremity Blood Pressure Cuff Size : Large Actual Weight : 122.4 kg(Converted to: 269 lb 14 oz) Weight Source : Standing scale Dosing Weight Clinic : 122.4 kg ANALY JUNG LPN - 08/29/2016 13:15 CDT General Info Information Given By : Patient Languages : Slovenian Is Patient Female and 13-50 no hysterectomy : No ANALY JUNG LPN - 08/29/2016 13:15 CDT Subjective Pain Symptoms : No ANALY JUNG LPN - 08/29/2016 13:15 CDT Dependent Habits Exposure to Tobacco Smoke : Other: never Smoking Status : Never smoker Tobacco 2A : No Tobacco Use/Currently Using : No Tobacco Use/Last 30 Days : No Tobacco Use/Last 12 months : No ANALY JUNG LPN - 08/29/2016 13:15 CDT Source: [facility] Document Id: [id number] CDT!26 Miscellaneous - Analy Jung L.PCandyNCandy - 07/17/2016 10:03 AM CDT Custom Result Letter July 17, 2016 YAZ ADAMES [address] [place] [id number] Dear YAZ ADAMES, Dear Yaz, You have an upcoming appointment with - neurologist at the [facility] on July. This is a reminder to please bring your CPAP machine or chip with you at the time of your appointment so a download of your information can be read. Thank you Sincerely, ANALY JUNG Electronic Signature Electronically Signed By: ANALY JUNG LPN On: July 17, 2016 This document has images extracted. Source: [facility] Document Id: [id number] ATIONS PROGRAM MANAGER documented in this encounter Plan of Treatment Not on filedocumented as of this encounter Visit Diagnoses Not on filedocumented in this encounter Additional Health Concerns Assessment Noted Time PHQ-9 Depression Total Score: 5 04/29/2016 10:10 AM CS T documented as of this encounter
--- OUTSIDE RECORDS SUMMARY | 2022-01-12 12:37 | XMS_ITS | Encounter Summary ---
:1955 Author Organization [facility] Address [address] [place] [address] Care Team Providers Name Role Phone Unavailable Primary Care Provider Unavailable Encounter Details Date Type Department Care Team Description 10/24/2016 Hospital Encounter HX [facility] Guido Man M.D. [address] [place] [address], [address] [place] [address] (Wo rk) Social History Tobacco [...] do you attend mandaeism or Never 2021 yazdanism services? Do you belong to any clubs or Yes 12/12/2021 organizations such as mandaeism groups, unions, fraternal or athletic groups, or [...] encounter Progress Notes Yobani Man M.D. - 10/24/2016 3:52 PM CDT [id number] CHIEF COMPLAINT/REASON FOR VISIT Bilateral foot pain and paresthesias. HISTORY OF PRESENT ILLNESS Ms. Adames returns today. She reports that the Lidoderm patches have been helpful for her but they are not approved by Medicare initially and so she has been trying to use them only very sporadically. She reports that the last few days have been worse with pain that she has been experiencing in her bilateral feet especially numbness, tingling and burning sensation throughout the plantar and dorsal aspect of the feet. She denies any swelling in the lower extremities and has been using the compression stockings which she finds to be very helpful. She continues her rolling pin underneath her plantar fascia which she finds to be helpful. She has been using her exercise bike. PHYSICAL EXAMINATION GENERAL: Pleasant 61-year-old female in no acute distress. EXTREMITIES: Ankle range of motion from a few degrees of ankle dorsiflexion to 45 degrees of plantarflexion bilaterally. Normal strength with testing in ankle groups bilaterally. There is diffuse tenderness to palpation of the dorsum of the foot bilaterally as well as sensation along the anteromedialcalcaneus bilaterally. There is again decreased sensation in light touch in a stocking distribution to the level of the ankles bilaterally. IMPRESSION/REPORT/PLAN 1. Bilateral lower extremity paresthesias. 2. Peripheral neuropathy. 3. Lumbar spinal stenosis. 4. Lumbar spondylosis. 5. Fibromyalgia. I do feel that Ms. Adames's symptoms are again multifactorial, related to her peripheral neuropathy as well as a component of plantar fasciopathy. PLAN: I am going to submit Ms. Adames's prior authorization for her Lidoderm patches. She has found that to be very helpful and I think that could significantly help with the neuropathic component to her pain. She will continue her aerobic exercise program including riding a stationary bike, which has been excellent. We will plan on making contact with Ms. Adames after we work on her prior authorization fora Lidoderm patch. Ms. Adames voiced agreement and understanding with this plan. Total time 30 minutes, counseling, care time greater than 15 minutes. Yobani Man M.D./veena Electronically Signed By: YOBANI MAN MD On: 10/28/2016 12:01 PM Modified by and Electronically Signed by: YOBANI MAN MD On: 10/28/2016 12:01 PM Source: [facility] MHSDOLBEYNONRADSYS Document Id: [id number] documented in this encounter Miscellaneous Notes Miscellaneous - Julienne Parson L.P.N. - 11/04/2016 9:35 AM CDT lyrica 50mg refill Document Contains Addenda Addendum by KATE GIRALDO LPN on November 04, 2016 11:04:26 CDT Called in Addendum by YOBANI MAN MD on November 04, 2016 10:05:42 CDT From: YOBANI MAN MD To: Physical Medicine and Rehabilitation Staff; Sent: 11/04/2016 10:05:42 CDT Subject: RE: lyrica 50mg refill Please call the Lyrica prescription. Thanks. Addendum by YOBANI MAN MD on November 04, 2016 10:05:25 CDT Approved Order:pregabalin (Lyrica 50 mg oral capsule) 1 cap(s) PO Daily Qty: 30 cap(s) Refills: 5 Substitutions Allowed Print - [id number] on [employer] Signed by YOBANI MAN MD 11/04/2016 10:05:20 From: JULIENNE PARSON LPN ([facility] Nurse) To: YOBANI MAN MD; Sent: 11/04/2016 09:35:06 CDT Subject: lyrica 50mg refill On hold pending signature Order:pregabalin (Lyrica 50 mg oral capsule) 1 cap(s) PO Daily Qty: 30 cap(s) Refills: 5 Substitutions Allowed Print - [id number] on [employer] (from [id number]) in session 83 Caller is: ( ) Patient ( ) Mother ( ) Father ( ) Spouse ( ) Daughter ( ) Son ( ) Pharmacy ( ) Other: Provider: Dr. 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 - 10/24/2016 4:52 PM CDT Ambulatory Patient Summary [facility] [address] [place] [id number] Visit Information Name: YAZ ADAMES [facility] Number: [id number] Current Date: 10/24/2016 16:52:38 Physicians Attending Provider: YOBANI MAN MD Primary Care Provider: PCPGABE REGINE has been [...] day lidocaine topical (Lidoderm 5% topical film) 1-2 patches, [...] capsule) 1 cap, Oral, once a day pramipexole (Mirapex 0.125 mg oral tablet) 2 Tablet(s), Oral, once a day pregabalin (Lyrica 50 mg oral capsule) 1 cap, Oral, once a day pregabalin (Lyrica 150 mg oral capsule) 1 cap, Oral, two times a day venlafaxine (Effexor XR 150 mg oral capsule, extended release) 1 cap, Oral, once a day Stop Taking the Following Medications: Medication list as of 10-24-16 16:52 Attention: If you have any medications at [...] Electronically Signed By: YOBANI MAN MD Signed On:24-OCT-2016 16:52:16 Your Allergies & Intolerances Substance Reaction Symptoms Category Comments penicillins Drug Your Problem List Problem Status Onset Comments Apnea Sleep Obstructive (CARLOS) Active Edema Leg NOS Active Neuropathy Peripheral NOS Active Hypersomnia NOS Active Your Upcoming Appointments Date Time Location Provider 11/07/2016 13:35 [facility] Neurology José Miguel AGRZA, [place] 12/03/2016 15:30 [facility] PM&R Yobani Man MD Attention: Contact your local Clinic if [...] if you dont have one. Go to [email or web address] and click on Create Your Account. Then, follow the directions to complete the online form. Youll be asked for your [facility] number which you can find at the top of this document. Your Goals/Additional instructions: Source: [facility] POWERCHART Document Id: [id number] Miscellaneous - Yobani Man M.D. - 10/24/2016 4:52 PM CDT Ambulatory Discharge Medication List [address] [id number] Visit Information Name: YAZ ADAMES [facility] Number: [id number] Current Date: 10/24/2016 16:52:37 Attending Provider: YOBANI MAN MD Primary Care [...] day lidocaine topical (Lidoderm 5% topical film) 1-2 patches, [...] capsule) 1 cap, Oral, once a day pramipexole (Mirapex 0.125 mg oral tablet) 2 Tablet(s), Oral, once a day pregabalin (Lyrica 50 mg oral capsule) 1 cap, Oral, once a day pregabalin (Lyrica 150 mg oral capsule) 1 cap, Oral, two times a day venlafaxine (Effexor XR 150 mg oral capsule, extended release) 1 cap, Oral, once a day Stop Taking the Following Medications: Medication list as of 10-24-16 16:52 Attention: If you have any medications at [...] Electronically Signed By: YOBANI MAN MD Signed On:24-OCT-2016 16:52:16 Additional Information: Source: [facility] POWERCHART Document Id: [id number] Miscellaneous - Kate Giraldo LCandyPCandyN. 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 Intake/History Entered On: 10/24/2016 16:08 CDT Performed On: 10/24/2016 16:07 CDT by KATE GIRALDO LPN Intake Systolic Blood Pressure : 124 mmHg Diastolic Blood Pressure : 76 mmHg NIBP Mean : 92 mmHg BP Location : Left upper extremity Blood Pressure Cuff Size : Regular Actual Weight : 118.7 kg(Converted to: 261 lb 11 oz) Dosing Weight Clinic : 118.7 kg KATE GIRALDO LPN - 10/24/2016 16:07 CDT General Info Information Given By : Patient Languages : Danish Is Patient Female and 13-50 no hysterectomy : No KATE GIRALDO LPN - 10/24/2016 16:07 CDT Subjective Pain Symptoms : No KATE GIRALDO LPN - 10/24/2016 16:07 CDT Dependent Habits Exposure to Tobacco Smoke : Other: never Smoking Status : Never smoker Tobacco 2A : No Tobacco Use/Currently Using : No Tobacco Use/Last 30 Days : No Tobacco Use/Last 12 months : No KATE GIRALDO LPN - 10/24/2016 16:07 CDT Source: Webs Document Id: [id number] CDT!22 documented in this encounter Plan of Treatment Not on filedocumented as of this encounter Visit Diagnoses Not on filedocumented in this encounter Additional Health Concerns Assessment Noted Time PHQ-9 Depression Total Score: 5 04/29/2016 10:10 AM CS T documented as of this encounter
--- OUTSIDE RECORDS SUMMARY | 2022-01-12 12:37 | XMS_ITS | Encounter Summary ---
:1955 Author Organization [facility] Address [address] [place] [address] Care Team Providers Name Role Phone Unavailable Primary Care Provider Unavailable Encounter Details Date Type Department Care Team Description 01/14/2017 Orders Only Department of Neurology in Meghna Valdez M.D., [place], [place] [facility] [address] [place] [address] [place], [place] [phone] (Wo rk) Social History Tobacco Use [...] do you attend synagogue or Never 2021 muslim services? Do you [...] as of this encounter Visit Diagnoses Diagnosis Hypersomnia documented in this encounter Additional Health Concerns Assessment Noted Time PHQ-9 Depression Total Score: 5 04/29/2016 10:10 AM CS T documented as of this encounter
--- OUTSIDE RECORDS SUMMARY | 2022-01-12 12:37 | XMS_ITS | Encounter Summary ---
:[address] [facility] Address [address] [place] [address] Care Team Providers Name Role Phone Unavailable Primary Care Provider Unavailable Encounter Details Date Type Department Care Team Description 12/17/2016 Hospital Encounter HX [facility] Guido Man M.D. [address] [place] [address], [address] [place] [address] (Wo rk) Social History Tobacco [...] do you attend pentecostal or Never 2021 episcopal services? Do you belong to any clubs [...] Sign Reading Time Taken Comments Blood Pressure 108/70 12/17/2016 11:12 AM CDT Pulse - - Temperature - - Respiratory Rate - - Oxygen Saturation - - Inhaled Oxygen Concentration - - Weight 116 kg (255 lb 4.7 oz) 12/17/2016 11:12 AM CDT Height 176 cm (5' 9.29) 12/17/2016 11:12 AM CDT Body Mass Index 37.38 12/17/2016 11:12 AM CDT documented in this encounter Medications at Time of Discharge Medication Sig Dispensed Refills Start Date End Date co-enzyme Q-10 (CO Q-10) Take 1 capsule by 0 04/17 100 mg capsule mouth daily. FSH/FLX/PRIM/CUR/BOR/OM3,6, Take 1 capsule by 0 0 05/01/2016 9 5 (OMEGA 3-6-9 FATTY mouth daily. ACIDS ORAL) hydroCHLOROthiazide Take 25 mg by 0 12/09/2016 (for_HYDRODIURIL) 25 mg mouth daily. tablet IRON,CARBONYL/ASCORBIC ACID Take 1 tablet by 0 (VITRON-C ORAL) mouth 2 (two) times a day. multivitamin tablet Take 1 tablet by 0 04/25/2011 mouth daily. nystatin (for_MYCOSTATIN) Apply 1 0 10/30/2016 100,000 unit/gram cream application topically 2 (two) times a day as needed. pramipexole (MIRAPEX) 0.125 Take 2-3 tablets 0 mg tablet by mouth 2 (two) times a day. 3 tabs in the afternoon, 2 tabs at bedtime venlafaxine XR (EFFEXOR XR) Take 1 capsule by 0 0 03/19/2016 150 mg 24 hr capsule mouth daily. With 75 mg capsule = 225 mg total dose VOLTAREN 1 % gel Apply 4 g 0 12/05/2016 topically 4 (four) times a day as needed. acyclovir (for_ZOVIRAX) 200 Take by mouth as 0 12/24/2021 mg capsule needed. aspirin [address] tablet Take 81 mg by 0 7 07/21/2017 mouth daily. CALCIUM CARBONATE/VITAMIN Take 1 tablet by 0 02/05/201412/18/2021 D3 (CALCIUM WITH VITAMIN D mouth 3 (three) ORAL) times a day. lidocaine (LIDODERM) 5 % Apply topically as 0 07/21/2017 patch needed. loratadine (for_CLARITIN) Take 1 tablet by 0 09/1512/27/2021 10 mg tablet mouth daily. melatonin 3 mg tablet Take 1 tablet by 0 08/29/19 17 07/21/2017 mouth. pregabalin (LYRICA) 150 mg Take 1 capsule by 0 03/28/2017 capsule mouth 2 (two) times a day. pregabalin (LYRICA) 50 mg Take 1 capsule by 0 05/28/2017 capsule mouth daily. quinapril-hydroCHLOROthiazi Take 1 tablet by 0 07/21/2017 de (for_ACCURETIC) 20-12.5 mouth daily. mg per tablet SENNOSIDES/DOCUSATE SODIUM Take 3 tablets by 0 06/23/2020 (SENNA WITH DOCUSATE SODIUM mouth daily. ORAL) triamcinolone (for_KENALOG) 0 10/31/19 17 06/23/2020 0.1 % cream UNABLE TO FIND lidocaine/ketamine 0 11/07/2016 /ketoprofen 2.48 g-5.525 g-5.525 g/114 g topical cream See Instructions, apply twice daily, 60 gm, 5 Refill(s) UNABLE TO FIND Lidoderm Compound 0 11/07/201611/2020 See Instructions, add 5% gabapentin to 30gm Lidoderm, 30 gm, 5 Refill(s) valACYclovir (VALTREX) 1000 Take 1 tablet by 0 06/23/2020 mg tablet mouth as needed. documented as of this encounter Progress Notes Yobani Man M.D. - 12/17/2016 10:52 AM CDT [id number] CHIEF COMPLAINT/REASON FOR VISIT Right lateral hip pain and bilateral heel pain. HISTORY OF PRESENT ILLNESS Ms. Caro returns today. She reports that over the past 6 to 8 weeks she has been having difficulty again with pain in the right lateral hip. This pain can be worse when she lies on her rightside or the more she is walking or when she goes from a seated to a standing position. She denies any pain radiating distal to the right lateral hip. She has also continued to be bothered by pain in her bilateral heels. This specifically is located in the region of the anteromedial calcaneus and is worse with the first few steps she takes in the morning as well as after she has been sitting for a period of time and starts to ambulate. PHYSICAL EXAMINATION GENERAL: Pleasant 61-year-old female in no acute distress. MUSCULOSKELETAL: Hip: Mildly decreased right hip internal range of motion without pain. There is tenderness to palpation directly over the right greater bursa region. NEUROLOGIC: Strength: Mild weakness testing of the right hip abductors. IMPRESSION/REPORT/PLAN 1. Right lateral hip pain, most consistent with right greater trochanteric pain syndrome. 2. Bilateral foot pain. 3. Bilateral plantar fasciopathy. 4. Peripheral neuropathy. 5. Fibromyalgia. PLAN: 1. We are going to proceed today with an ultrasound-guided right greater trochanteric bursa corticosteroid injection. Please see separate note dictated for details of this procedure. Ms. Caro will continue the exercises she was shown previously with respect to her right greater trochanteric pain syndrome. 2. I am going to give Ms. Caro an order for physical therapy with respect to her bilateral plantar fasciopathy. We are going to work on a comprehensive program including Graston technique which has helped Ms. Bebeto Multani when she has had these symptoms more pronounced in the past. 3. I will plan on being in contact with Ms. Crao in 2 weeks to assess her progress following today's procedure or sooner if she notes any worsening or worrisome symptoms which we went over in detail today. Ms. Caro voiced agreement and understanding of this plan. Yobani Man M.D./veena Electronically Signed By: YOBANI MAN MD On: 12/19/2016 02:19 PM Modified by and Electronically Signed by: YOBANI MAN MD On: 12/19/2016 02:19 PM Source: [facility] MHSDOLBEYNONRADSYS Document Id: [id number] documented in this encounter Procedure Notes Yobani Man M.D. - 12/17/2016 12:00 AM CDT 1RPT DIAGNOSIS: Right greater trochanteric bursitis. HISTORY/INDICATION: Please see my clinical note dated 12/17/2016 for details of the HPI. PROCEDURE PERFORMED: Ultrasound-guided right greater trochanteric bursa corticosteroid injection. PATIENT EDUCATION: Ready to [...] Next, an optimal, ultrasound image of the tissue plane between the right gluteus vincenzo and gluteus medius was obtained with a 5-1 curvilinear transducer. A preprocedure image was saved to the harddrive. Following this, the area was prepped with a ChloraPrep scrub x2, then re-examined using the same transducer, a sterile ultrasound transducer cover, and sterile ultrasound transducer gel. Next, 3mL of 1% lidocaine was used for local anesthesia using a 25-gauge 2-inch needle. Following delivery of local anesthesia, real time ultrasound was used to guide a 22-gauge 2-1/2 inch needle into the tissue plane between the right gluteus vincenzo and gluteus medius. After visualization of the tip in thetarget area and negative aspiration for blood, a mixture of 5 mL of 1% lidocaine and 1 mL of 40 mg/mL of Depo-Medrol was delivered to the target area while observing injectate flow with real time ultrasonographic imaging. The injectate was delivered without complications. 0 mL of Depo-Medrol were wasted due to [...] rest of the day. ADDITIONAL INSTRUCTIONS: Ms. Caro will be in contact with us if she has any difficulty following todays procedure. Otherwise, we will plan on being in contact with her over the phone in two weeks to assess her progress. Ms. Caro voiced agreement and understanding with this plan. Yobani Man M.D./carmen Electronically Signed By: YOBANI MAN MD On: 12/19/2016 02:19 PM Modified by and Electronically Signed by: YOBANI MAN MD On: 12/19/2016 02:19 PM Source: [facility] MHSDOLBEYNONRADSYS Document Id: [id number] documented in this encounter Miscellaneous Notes Miscellaneous - Kate Giraldo L.P.N. - 12/17/2016 12:52 PM CDT Reminder Msg Document Contains Addenda Addendum by KATE GIRALDO LPN on January 01, 2017 15:43:03 CDT From: KATE GIRALDO LPN ( Physical Medicine and Rehabilitation Staff) To: YOBANI MAN MD; Sent: 01/01/2017 15:43:03 CDT Show up: 01/01/2017 15:42:00 CDT Subject: RE: Reminder Msg Spoke with patient. She states that injection worked well for her. From: KATE GIRALDO LPN ( Physical Medicine and Rehabilitation Staff) To: Physical Medicine and Rehabilitation Staff; Sent: 12/17/2016 12:52:36 CDT Show up: 12/31/2016 12:52:00 CDT Subject: Reminder Msg Please Remember to: call patient to see how she is doing after right troch bursa corticosteroid injection. PATIENT: ( ) Call Patient ( ) Ask Patient to ( ) ( ) Call Relative ( ) Schedule Patient ( ) ( ) Call for Ground School Instructor ( ) Follow up on Results ( ) Other: PROVIDER: ( ) Call Physician ( ) Call Pharmacist ( ) Call Lab ( ) Other: Special Instructions: Comments: Source: [facility] POWERCHART Document Id: [id number] Miscellaneous - Yobani Man M.D. - 12/17/2016 12:27 PM CDT Ambulatory Patient Summary [facility] [address] [place] [id number] Visit Information Name: YAZ CARO [facility] Number: [id number] Current Date: 12/17/2016 12:27:43 Physicians Attending Provider: YOBANI MAN MD Primary [...] of application within a 24 hr period lidocaine/ketamine/ketoprofen topical (lidocaine/ketamine/ketoprofen 2.48 g- 5.525 g-5.525 g/114 g topical cream) See Instructions apply twice daily loratadine (loratadine 10 mg oral tablet) 1 Tablet(s), Oral, once a day LORazepam (LORazepam) as needed for Anxiety melatonin (melatonin 3 mg oral tablet) 1 Tablet(s), Oral Misc Prescription (Lidoderm Compound) See Instructions add 5% gabapentin to 30gm Lidoderm multivitamin (multivitamin) omega-3 polyunsaturated fatty acids (Fish [...] the Following Medications: Medication list as of 12-17-16 12:27 Attention: If you have any medications at [...] Electronically Signed By: YOBANI MAN MD Signed On:17-DEC-2016 12:27:22 Your Allergies & Intolerances Substance Reaction Symptoms Category Comments penicillins Drug Your Problem List Problem Status Onset Comments Apnea Sleep Obstructive (CARLOS) Active Edema Leg NOS Active Neuropathy Peripheral NOS Active Hypersomnia NOS Active Your Upcoming Appointments Date Time Location Provider 12/26/2016 10:35 [facility] Neurology Tho Valdez MD 01/28/2017 14:45 [facility] PM&R Yobani Man MD Attention: Contact [...] you dont have one. Go to [email or web address] and click on Create Your Account. Then, follow the directions to complete the online form. Youll be asked for your [facility] number which you can find at the top of this document. Your Goals/Additional instructions: Source: [facility] POWERCHART Document Id: [id number] Miscellaneous - Yobani Man M.D. - 12/17/2016 12:27 PM CDT Ambulatory Discharge Medication List [address] [id number] Visit Information Name: YAZ CARO [facility] Number: [id number] Current Date: 12/17/2016 12:27:42 Attending Provider: YOBANI MAN MD Primary Care [...] of application within a 24 hr period lidocaine/ketamine/ketoprofen topical (lidocaine/ketamine/ketoprofen 2.48 g- 5.525 g-5.525 g/114 g topical cream) See Instructions apply twice daily loratadine (loratadine 10 mg oral tablet) 1 Tablet(s), Oral, once a day LORazepam (LORazepam) as needed for Anxiety melatonin (melatonin 3 mg oral tablet) 1 Tablet(s), Oral Misc Prescription (Lidoderm Compound) See Instructions add 5% gabapentin to 30gm Lidoderm multivitamin (multivitamin) omega-3 polyunsaturated fatty acids (Fish [...] the Following Medications: Medication list as of 12-17-16 12:27 Attention: If you have any medications at [...] Electronically Signed By: YOBANI MAN MD Signed On:17-DEC-2016 12:27:22 Additional Information: Source: [facility] POWERCHART Document Id: [id number] Miscellaneous - Kate Giraldo L.PCandyNCandy - 12/17/2016 11:12 AM CDT Adult [employer] Consultant Intake/History Adult [employer] Consultant Intake/History Entered On: 12/17/2016 11:14 CDT Performed On: 12/17/2016 11:12 CDT by KATE GIRALDO LPN Intake Systolic Blood Pressure : 108 mmHg Diastolic Blood Pressure : 70 mmHg NIBP Mean : 83 mmHg BP Location : Left upper extremity Blood Pressure Cuff Size : Regular Height : 176 cm(Converted to: 5 ft 9 inch(es), 69 inch(es)) Actual Weight : 115.8 kg(Converted to: 255 lb 5 oz) Dosing Weight Clinic : 115.8 kg Clinic BSA : 2.38 Body Mass Index : 37.38 kg/m2 KATE GIRALDO LPN - 12/17/2016 11:12 CDT General Info Information Given By : Patient Languages : Mauritanian Is Patient Female and 13-50 no hysterectomy : No KATE GIRALDO LPN - 12/17/2016 11:12 CDT Subjective Pain Symptoms : No KATE GIRALDO LPN - 12/17/2016 11:12 CDT Dependent Habits Exposure to Tobacco Smoke : Other: never Smoking Status : Never smoker Tobacco 2A : No Tobacco Use/Currently Using : No Tobacco Use/Last 30 Days : No Tobacco Use/Last 12 months : No KATE GIRALDO LPN - 12/17/2016 11:12 CDT Source: [facility] POWERCHART Document Id: [id number] CDT!25 documented in this encounter Plan of Treatment Not on filedocumented as of this encounter Visit Diagnoses Not on filedocumented in this encounter Additional Health Concerns Assessment Noted Time PHQ-9 Depression Total Score: 5 04/29/2016 10:10 AM CS T documented as of this encounter
--- OUTSIDE RECORDS SUMMARY | 2022-01-12 12:37 | XMS_ITS | Encounter Summary ---
:1955 Author Organization [facility] Address [address] [place] [address] Care Team Providers Name Role Phone Unavailable Primary Care Provider Unavailable Encounter Details Date Type Department Care Team Description 12/17/2016 Telemedicine Department of Physical Medicine and Rehab Social History Tobacco Use Types Packs/Day Years [...] do you attend adventism or Never 2021 jewish services? Do you [...] Name Priority Date/Time Associated Diagnosis Comme nts PHYSICAL MEDICINE Routine 12/17/2016 11:40 AM Res ults for this AND REHAB IMAGE CDT procedure ar e in EXAM the results section. documented in this encounter Results PHYSICAL MEDICINE AND REHAB IMAGE EXAM (12/17/2016 11:40 AM CDT) Specimen (Source) Anatomical Location Collection Method / Collectio n Time Received Time / Laterality Volume Narrative IIMS - 12/17/2016 4:10 PM CDT This order has been created and auto-finalized to support the import of images acquired without order. The clini caprice documentation to support these images can be found on the encounter jesenia t produced images. Provider Not In System IMG NON RAD IMAGING PROCEDUR ES Performing Organization Address City/State/ZIP Code Phon e Number IIMS IIMS NA documented in this encounter Visit Diagnoses Not on filedocumented in this encounter Additional Health Concerns Assessment Noted Time PHQ-9 Depression Total Score: 5 04/29/2016 10:10 AM CS T documented as of this encounter
--- OUTSIDE RECORDS SUMMARY | 2022-01-12 12:37 | XMS_ITS | Encounter Summary ---
:1955 Author Organization [facility] Address [address] [place] [address] Care Team Providers Name Role Phone Unavailable Primary Care Provider Unavailable Encounter Details Date Type Department Care Team Description 06/27/2016 Hospital Encounter HX [facility] NEUROLOGY Meghna Valdez M.D., M.P.H. [address] [place] [address] (Wo rk) Social History Tobacco [...] or relatives? How often do you attend sabianist or Never 2021 judaism services? Do you belong to any clubs or Yes 12/12/2021 organizations such as sabianist groups, unions, fraternal or athletic groups, or [...] Sign Reading Time Taken Comments Blood Pressure 136/70 06/27/2016 12:56 PM CDT Pulse 64 06/27/2016 12:56 PM CDT Temperature - - Respiratory Rate - - Oxygen Saturation - - Inhaled Oxygen Concentration - - Weight 120 kg (265 lb 1.7 oz) 06/27/2016 12:56 PM CDT Height - - Body Mass Index 39.26 08/11/2015 10:46 AM CDT documented in this [...] as needed. documented as of this encounter Consult Notes Lani Valdez M.D., M.P.H. - 06/27/2016 12:31 PM CDT [id number] REFERRAL SOURCE Yobani Padilla MD CHIEF COMPLAINT/REASON FOR VISIT Sleep disturbance. HISTORY OF PRESENT ILLNESS Yaz is an engaging 61-year-old woman with longstanding history of insomnia, peripheral neuropathyand diabetic foot pain, orthopedic pain. Her problems with sleep have been life long. She has difficulty initiating sleep and has always been a night owl. She goes to bed between 12:00 and 1:00 and forthe last 2 months has not been able to fall asleep until 3 a.m. and then gets up about 9 a.m. She said that prior to the last couple of months she would generally fall asleep pretty quickly, but she has not been able to sleep well for the last 2 months and she is not sure what has changed. She has hadchronic pain, chronic neuropathy. She describes that her bedroom is quiet and dark and cool. She says she has had multiple sleep studies at [facility], but unfortunately the only one we were able to obtain was a CPAP titration study and we were unable to obtain any diagnostic polysomnograms. The patient sees Dr. Dian Harris at [facility]. The patient states she has used melatonin in the past, although she is not using that now. She is not opposed to using it again. Her medications as listed in our electronic health record include lidocaine topical, pregabalin 150 mg one 2 times a day and 50 mg 1 daily. A CPAP titration study from 05/20/[address] Heaven Howe includes that the patient needs a CPAP with a pressure of 10 cmof water pressure with 2 L of supplemental oxygen. The patient does not know how well her machine isworking. She says it is not a downloadable machine. The patient has also been seen in [facility] by Dr. Argelia Barreto. It also looks as though she has seen Dr. Yobany Valerio at the [facility] for an EMG nerve conduction velocity study on 01/20/2015. 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 She also on March 30, 2015 saw Ziggy Cabello MD Ph.D. 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 He recommended orthopedic evaluation for surgical recommendations. The patient has had restless legs syndrome for many years and she is not on a dopamine agonist. The patient is also seeing Dr. Yayo Rodriguez in the [facility] who concluded she had a chronicpain syndrome. This was in 1996 and at that time the EMG showed no evidence of right cervical or left lumbar sacral radiculopathy and there was no evidence of peripheral neuropathy or peripheral neuromuscular malfunction. Sleep history includes sleepiness while driving, snoring, waking up choking, difficulty initiating sleep, kicking her legs during sleep, uncomfortable sensation in her legs, nocturia. SYSTEMS REVIEW Diffusely positive. PHYSICAL EXAMINATION GENERAL: The patient is healthy looking and in no distress. VITAL SIGNS: Her blood pressure is 136/70, peripheral pulse 64. Weight is 120.25 kg. HEENT: Normal and atraumatic. She is a Mallampati 4 score with macroglossia, but no tongue ridging. She has no goiter. LUNGS: Clear to auscultation. NEUROLOGIC: Cranial nerves 2 through 12 are normal. Her motor examination reveals normal bulk, tone,and strength throughout. She has decreased pain and temperature distally. Deep tendon reflexes are normal in the upper extremities, diminished at the ankle. IMPRESSION/REPORT/PLAN This is a very complicated patient with a number of reasons not to sleep. Since she has so many complications the first thing I am going to do is try to get her on a normal circadian cycle of going to sleep. We are going to initiate melatonin half an hour before bedtime which will be midnight. She will take the melatonin 3 mg at 11:30 p.m. She is going to keep a sleep log and I am going to see her back. I am likely going to do another polysomnogram to evaluate the status of her CPAP at some point, but at a minimum I am going to have her bring her CPAP machine into the next visit so I can see how well it is working. She continues to have pain and PLMs that interfere with sleep, but there are just too many things going on to make multiple changes and keep track of what we are doing. She is agreeable with this plan.We spent over 40 minutes together and over 25 was counseling and review of her prior records. I willsee her back in a month. Lani Valdez M.D./veena Electronically Signed By: LANI VALDEZ MD MPH On: 06/28/2016 04:28 PM Source: [facility] MHSDOLBEYNONRADSYS Document Id: [id number] documented in this encounter Miscellaneous Notes Miscellaneous - Smaara Mishra, RCandyN. - 08/13/2016 12:49 PM CDT lyrica Document Contains Addenda Addendum by MONICA DE JESUS RN on August 13, 2016 15:43:19 CDT called into [facility] Addendum by YOBANI PADILLA MD on August 13, 2016 13:04:02 CDT From: [facility]; Sent: 08/13/2016 13:04:02 CDT Subject: RE: lyrica Please call. Thanks. Addendum by YOBANI PADILLA MD on August 13, 2016 13:03:56 CDT Submitted: Order:pregabalin (Lyrica 150 mg oral capsule) 1 cap(s) PO 2xDay Qty: 60 cap(s) Refills: 5 Substitutions Allowed Don't Print - called to pharmacy (Rx) Signed by YOBANI PADILLA MD 08/13/2016 13:03:48 From: SAMARA MISHRA RN ([facility] Medication Refill) To: YOBANI PADILLA MD; Sent: 08/13/2016 12:49:25 CDT Subject: lyrica Caller is: ( ) Patient ( ) Mother ( ) Father ( ) Spouse ( ) Daughter ( ) Son ( [facility] [phone]; fax [phone] ) Pharmacy ( ) Other: Provider: juan Pharmacy: Name of Medications Needing Refill: lyrica 150 mg Last Refill Date: 07/15/16 qty 60 Additional Information: 1 cap po BID.... Last / Future Appointment: 06/04/16; 08/28/16 Disposition: ( x ) Send to Pharmacy ( ) Call to Pharmacy ( ) Patient will cook pickled meat Script ( ) Mail Rxto Patient Source: [facility] POWERCHART Document Id: [id number] Electronically signed by Priya [facility] Butadiene Compressor Operator [id number] at 08/27/2016 7:05 AM CDT Miscellaneous - Lani Valdez M.D., M.P.H. - 06/27/2016 4:10 PM CDT Ambulatory Patient Summary [address] [id number] Visit Information Name: YAZ CARO [facility] Number: [id number] Current Date: 06/27/2016 16:10:45 Physicians Attending Provider: LANI VALDEZ MD MPH Primary Care Provider: PCP, ELSEWHERE YAZ CARO [...] 1 Tablet(s), Oral, once a day melatonin (Melatonin 3 mg oral tablet) 1 Tablet(s), Oral, once a day (at bedtime) New Routed to [address] [id number] multivitamin (multivitamin) omega-3 polyunsaturated fatty acids (Fish [...] the Following Medications: Medication list as of 06-27-16 16:10 Attention: If you have any medications at [...] Signed By: LANI VALDEZ MD MPH Signed On:27-JUN-2016 16:10:42 Your Allergies & Intolerances Substance Reaction Symptoms Category Comments penicillins Drug Your Problem List Problem Status Onset Comments No Chronic Problems Active Your Upcoming Appointments Date Time Location Provider 07/17/2016 11:30 [facility] PM&R Yobani Padilla MD 07/25/2016 12:55 [facility] Neurology Lani Valdez MD Attention: Contact [...] if you dont have one. Go to [email or web address] and click on Create Your Account. Then, follow the directions to complete the online form. Youll be asked for your [facility] number which you can find at the top of this document. Your Goals/Additional instructions: Source: [facility] POWERCHART Document Id: [id number] Miscellaneous - Lani Valdez M.D., M.P.H. - 06/27/2016 4:10 PM CDT Ambulatory Discharge Medication List [address] [id number] Visit Information Name: YAZ CARO [facility] Number: [id number] Current Date: 06/27/2016 16:10:44 Attending Provider: LANI VALDEZ MD MPH Primary Care Provider: PCP, YAZ SLOAN has [...] 1 Tablet(s), Oral, once a day melatonin (Melatonin 3 mg oral tablet) 1 Tablet(s), Oral, once a day (at bedtime) New Routed to [address] [id number] multivitamin (multivitamin) omega-3 polyunsaturated fatty acids (Fish [...] the Following Medications: Medication list as of 06-27-16 16:10 Attention: If you have any medications at [...] Signed By: LANI VALDEZ MD MPH Signed On:27-JUN-2016 16:10:42 Additional Information: Source: [facility] POWERCHART Document Id: [id number] Miscellaneous - Julienne Elmore L.PCandyNCandy - 06/27/2016 1:01 PM CDT [place] Sleepiness Scale [place] Sleepiness Scale Entered On: 06/27/2016 13:02 CDT Performed On: 06/27/2016 13:01 CDT by JULIENNE ELMORE LPN [place] Sleepiness Scale [place] sitting and reading : Slight chance of dozing [place] watching TV : No chance of dozing [place] sitting in public : No chance of dozing [place] passenger in car : Moderate chance of dozing [place] in a car stopped in traffic : Slight chance of dozing [place] Lying down to rest : Moderate chance of dozing [place] sitting and talking : Slight chance of dozing [place] sitting quietly after lunch : Slight chance of dozing [place] Total Score : 8 JULIENNE ELMORE LPN - 06/27/2016 13:01 CDT Source: [facility] Document Id: [id number] CDT!11 Miscellaneous - Julienne Elmore L.P.N. 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 Padilla, peripheral neuropathy, neuropathy really bothers her at night when she tries to sleep Peripheral Pulse Rate : 64 /min Systolic Blood Pressure : 136 mmHg Diastolic Blood Pressure : 70 mmHg NIBP Mean : 92 mmHg BP Location : Left upper extremity Blood Pressure Cuff Size : Large Actual Weight : 120.25 kg(Converted to: 265 lb 2 oz) Weight Source : Standing scale Dosing Weight Clinic : 120.25 kg JULIENNE ELMORE LPN - 06/27/2016 12:56 CDT General Info Information Given By : Patient Preferred Communication Mode : Verbal, Written Languages : Armenian Is Patient Female and 13-50 no hysterectomy : No JULIENNE ELMORE LPN - 06/27/2016 12:56 CDT Subjective Pain Symptoms : No JULIENNE ELMORE LPN - 06/27/2016 12:56 CDT Dependent Habits Exposure to Tobacco Smoke : Other: never Smoking Status : Never smoker Tobacco 2A : No Tobacco Use/Currently Using : No Tobacco Use/Last 30 Days : No Tobacco Use/Last 12 months : No JULIENNE ELMORE LPN - 06/27/2016 12:56 CDT Source: [facility] Document Id: [id number] CDT!26 documented in this encounter Plan of Treatment Not on filedocumented as of this encounter Visit Diagnoses Not on filedocumented in this encounter Additional Health Concerns Assessment Noted Time PHQ-9 Depression Total Score: 5 04/29/2016 10:10 AM CS T documented as of this encounter
--- OUTSIDE RECORDS SUMMARY | 2022-01-12 12:37 | XMS_ITS | Encounter Summary ---
:1955 Author Organization [facility] Address [address] [place] [address] Care Team Providers Name Role Phone Unavailable Primary Care Provider Unavailable Reason for Visit Reason Comments Follow-up hip pain Encounter Details Date Type Department Care Team Description 01/28/2017 Office Visit Department of Physical Vivek Man, Pain Low Back (Primary Dx); Medicine and M.D. Spondylosis Lumbar Without Myelopathy; Rehabilitation in [facility], Pain Hip Right; [place], [place] [address] Bursitis Trochanteric Right [address] [place] [id number] Social History Tobacco Use Types Packs/Day Years [...] or relatives? How often do you attend buddhist or Never 2021 hoahaoism services? 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 - 01/28/2017 12:00 AM CST SUBJECTIVE CHIEF COMPLAINT/REASON FOR VISIT Followup low back pain and right lower extremity pain. HISTORY OF PRESENT ILLNESS Ms. Adames returns today in followup. I did perform an ultrasound- guided right greater trochanteric bursa corticosteroid injection on December 17. She initially thought this was helpful for her but over the past few weeks the pain has returned again and has been more problematic for her. She describes it as an achy, deep pain located in the right lateral hip. It is worse when she tries to walk for any distance or when she goes from a seated to a standing position. The pain can radiate into the right lateral thigh. It typically does not extend distal to the knee. She denies any new paresthesias in the bilateral lower extremities, focal weakness in her right lower extremity, change in bowel bladder habits, fevers or chills or recent unintentional weight loss. She reports that her chronic low back pain is basically unchanged and actually has been doing fairly well overall for the past couple of months. OBJECTIVE PHYSICAL EXAMINATION GENERAL: Pleasant 61-year-old female in no acute distress. NEUROLOGIC: Gait: Trendelenburg gait on the right. MUSCULOSKELETAL: There is tenderness to palpation over the right greater trochanteric bursa region. ASSESSMENT / PLAN #1 RIGHT LATERAL HIP PAIN, MOST CONSISTENT WITH RIGHT GREATER TROCHANTERIC PAIN SYNDROME #2 LUMBAR SPONDYLOSIS #3 PERIPHERAL NEUROPATHY #4 FIBROMYALGIA Ms. Huitrons symptoms and examination are again most consistent with a diagnosis of right greater trochanteric pain syndrome. Other things to consider however would include the possibility of a right L5 radiculopathy with the distribution of her symptoms. PLAN: 1. With Ms. Adames's persistent symptoms despite a variety of different interventions at this point we are going to proceed with an MRI of the right hip. 2. Will plan on being in contact with Ms. Adames with the results of the right hip MRI and she knows to be in contact with us prior to that time if she notes any worsening or worrisome symptoms which we went over in detail today. She voiced agreement and understanding of this plan. Total time 25 minutes, counseling and coordination of care time greater than 15 minutes. Job ID: [id number] INVESTMENT/PORTFOLIO MANAGER documented in this encounter Plan of Treatment Not on filedocumented as of this encounter Visit Diagnoses Diagnosis Pain Low Back Unspecified - Primary Spondylosis Lumbar Without Myelopathy Pain Hip Right Bursitis Trochanteric Right documented in this encounter Additional Health Concerns Assessment Noted Time PHQ-9 Depression Total Score: 5 04/29/2016 10:10 AM CS T documented as of this encounter
--- OUTSIDE RECORDS SUMMARY | 2022-01-12 12:37 | XMS_ITS | Encounter Summary ---
:1955 Author Organization [facility] Address [address] [place] [address] Care Team Providers Name Role Phone Unavailable Primary Care Provider Unavailable Encounter Details Date Type Department Care Team Description 11/07/2016 Hospital Encounter HX [facility] Meghna Maradiaga M.D., M.P.H. [address] [place] [address] (Wo rk) Social History Tobacco [...] or relatives? How often do you attend yazdanism or Never 2021 voodoo services? Do you belong to any clubs or Yes 12/12/2021 organizations such as yazdanism groups, unions, fraternal or athletic groups, or [...] Sign Reading Time Taken Comments Blood Pressure 110/76 11/07/2016 1:37 PM CDT Pulse 64 11/07/2016 1:37 PM CDT Temperature - - Respiratory Rate - - Oxygen Saturation - - Inhaled Oxygen Concentration - - Weight 118 kg (261 lb 3.9 oz) 11/07/2016 1:37 PM CDT Height 176.5 cm (5' 9.49) 11/07/2016 1:37 PM CDT Body Mass Index 38.04 11/07/2016 1:37 PM CDT documented in this encounter Medications at Time of Discharge Medication Sig Dispensed Refills Start Date End Date co-enzyme Q-10 (CO Q-10) Take 1 capsule by 0 04/17 100 mg capsule mouth daily. FSH/FLX/PRIM/CUR/BOR/OM3 Take 1 capsule by 0 /07/2016 ,6,9 5 (OMEGA 3-6-9 mouth daily. FATTY ACIDS ORAL) IRON,CARBONYL/ASCORBIC Take 1 tablet by 0 07/19/ 016 ACID (VITRON-C ORAL) mouth 2 (two) times a day. multivitamin tablet Take 1 tablet by 0 04/25/2011 mouth daily. nystatin Apply 1 application 0 10/30/2016 (for_MYCOSTATIN) 100,000 topically 2 (two) unit/gram cream times a day as needed. pramipexole (MIRAPEX) Take 2-3 tablets by 0 [...] (two) times a day. pregabalin (LYRICA) 50 Take 1 capsule by 0 201605/28/2017 mg capsule mouth daily. quinapril-hydroCHLOROthi Take 1 tablet by 0 10/0907/21/2017 azide (for_ACCURETIC) mouth daily. 20-12.5 mg per tablet SENNOSIDES/DOCUSATE Take 3 tablets by 0 7 06/23/2020 SODIUM (SENNA WITH mouth daily. DOCUSATE SODIUM ORAL) triamcinolone 0 10/30/2016 06/23/2020 (for_KENALOG) 0.1 % cream UNABLE TO FIND lidocaine/ketamine/ke 0 11/07/2016 06/23/2020 toprofen 2.48 g-5.525 g-5.525 g/114 g topical cream See Instructions, apply twice daily, 60 gm, 5 Refill(s) UNABLE TO FIND Lidoderm Compound See 0 11/07/2016 06/23/2020 Instructions, add 5% gabapentin to 30gm Lidoderm, 30 gm, 5 Refill(s) valACYclovir (VALTREX) Take 1 tablet by 0 010 06/23/2020 1000 mg tablet mouth as needed. documented as of this encounter Progress Notes Lani Maradiaga M.D., M.P.H. - 11/07/2016 1:10 PM CDT [id number] CHIEF COMPLAINT/REASON FOR VISIT Followup on insomnia and peripheral neuropathy. 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 She is being treated with pregabalin for her neuropathy but she still has substantialburning in her feet and has been concerned that she has edema in her feet and this could contribute to some of the pain she has. At one point someone had suggested to her that her edema might be neuropathic but I think that is unlikely given the fact that she also has diastolic dysfunction. She has not really tried topical therapy for her neuropathy. She says she was given a prescription 1time and insurance would not cover it. The 2nd issue is obstructive sleep apnea and she is using CPAP at 10 cm of water pressure and supposedly 2 L of oxygen but I have been unable to download her machine and she does not bring the [employer] machine in today. I did have her keep a sleep log for me and I think she is underestimating the amount of sleep so that for example if she sleeps an hour and a half she will only indicate an hour on the diary, but be that as it may her sleep log shows she is sleeping 3 to 4 hours most nights, going to bed about midnight and sleeping until 1:00 or 2:00 and then she is up for 1 to 2 hours and then she may sleep a few hours later, although she noted just before she came in this week that she had act ually slept better, in some cases 6 hours. There is no one else in her bedroom and so we do not know whether she is snoring or has anymore witnessed apneas. At today's visit I proposed the idea that we could treat her with ointment for neuropathy since it is likely we cannot increase her pregabalin anymore. She was initially resistant to that but warmed upto the idea. She also agreed to bring in her whole CPAP machine so we could download it next time. She did not complete a review of systems survey. PHYSICAL EXAMINATION GENERAL: Today the patient was awake, alert and cooperative. VITAL SIGNS: Her blood pressure is 110/76, heart rate 67, she is 176.5 cm tall and weighs 118.5 kg. HEENT: Normal and atraumatic. Her Mallampati score is 3. NEUROLOGIC: Cranial nerves II to XII are normal. Motor examination reveals normal bulk, tone, and strength throughout. She has no pronator drift. Alternating rapid movements are normal bilaterally and her sensation to light touch is normal. IMPRESSION/REPORT/PLAN 1. Peripheral neuropathy. She has been adequately evaluated previously and I do not see any reason to repeat that, and she is taking pregabalin 200 mg per day. I am going to add topical lotion with ketamine, lidocaine and ketoprofen. I sent that to a compounding pharmacy and we will try that 2 times aday. 2. Obstructive sleep apnea. She is going to need to bring her whole machine in so we can try to download it to see how well that is working. 3. She also seemed to have sleep maintenance insomnia that might be related to the obstructive sleepapnea, but if no better after we get the CPAP downloaded the other possibility is the pain in her legs which is worse at night may contribute to that. I am going to see her back in about 6 weeks. Totaltime together was 40 minutes. Lani Maradiaga M.D./veena Electronically Signed By: LANI MARADIAGA MD MPH On: 11/15/2016 03:00 PM Source: [facility]OLBEYNON[facility]SYS Document Id: [id number] documented in this encounter Plan of Treatment Not on filedocumented as of this encounter Visit Diagnoses Not on filedocumented in this encounter Additional Health Concerns Assessment Noted Time PHQ-9 Depression Total Score: 5 04/29/2016 10:10 AM CS T documented as of this encounter
--- OUTSIDE RECORDS SUMMARY | 2022-01-12 12:37 | XMS_ITS | Encounter Summary ---
:1955 Author Organization [facility] Address [address] [place] [address] Care Team Providers Name Role Phone Unavailable Primary Care Provider Unavailable Encounter Details Date Type Department Care Team Description 03/19/2016 Hospital Encounter HX [facility] Guido Man M.D. [address] [place] [address], [address] [place] [address] (Wo rk) Social History Tobacco [...] or relatives? How often do you attend alevism or Never 2021 hoahaoism services? Do you belong to any clubs or Yes 12/12/2021 organizations such as alevism groups, unions, fraternal or athletic groups, or [...] Sign Reading Time Taken Comments Blood Pressure 112/72 03/19/2016 11:12 AM LPC Pulse - - Temperature - - Respiratory Rate - - Oxygen Saturation - - Inhaled Oxygen Concentration - - Weight 120 kg (265 lb 1.7 oz) 03/19/2016 11:12 AM LPC Height - - Body Mass Index 39.26 [...] encounter Progress Notes Yobani Man M.D. - 03/19/2016 11:01 AM CST [id number] CHIEF COMPLAINT/REASON FOR VISIT Follow up low back pain, bilateral hip pain and new issue of bilateral medial elbow pain, left shoulder pain and bilateral foot pain. HISTORY OF PRESENT ILLNESS Ms. Caro returns today in followup. She has a few different issues today that we discussed. The 1st is left shoulder pain. This pain is located in the anterior left shoulder. She reports that it can affect the clavicle as well. She has been performing exercises that she was instructed on inher chiropractor's office which she does find to be helpful. She denies any focal weakness in the left shoulder. She also describes pain that is located in the medial aspect of both elbows. This pain is worse when she does any gripping or grasping as well as any knitting. She was diagnosed with bilateral medial epicondylosis and she has made some adjustments to decrease the amount of time that she isperforming knitting as well as making sure that her arms are well- supported when she is knitting. She also describes left medial proximal thigh pain. She can also experience this pain deep in the left groin as well. She denies any catching or locking in the left hip. She denies any buckling or give-way of the left hip. Finally, she describes bilateral foot pain. This has been an intermittent issue for her for a few years but now is in a slightly different location. She has been noticing it primarily in the region of the great toes bilaterally. She does have numbness involving the great toes which is not new. She hasnoted some pain in the region of the 1st MTP joints as well as extending into the proximal phalanx bilaterally. She has also noted an area of erythema bilaterally, worse on the right in the region of the proximal phalanx. This is a small area. She has not noted any warmth or swelling in the region of the proximal phalanx. She is very conscious about what kind of shoes that she wears and always makes sure that she has supportive shoes as well that are also not tight in the region of the great toe. PHYSICAL EXAMINATION GENERAL: Pleasant 58-year-old female, in no acute distress. GAIT: Nonantalgic. FOOT: There is a very slight area of erythema bilaterally in the region of the proximal phalanx of the great toe. There is no warmth or erythema about the great toe. There is mild tenderness to palpation in the region of the right 1st MTP joints bilaterally. Decreased sensation to light touch in the great toes bilaterally. HIP: Preserved hip range of motion bilaterally. She does have pain at the end range of left hip internal motion in the left groin. Mildly positive Stinchfield's on the left. There is tenderness to palpation directly over the adductor longus tendon approximately near the insertion onto the pubis. SHOULDER: Forward elevation is 180 degrees bilaterally and abduction 100 degrees bilaterally with pain in the mid arc on the left. Normal strength with testing rotator cuff musculature bilaterally. There is tenderness to palpation in the anterior subacromial space as well as the biceps tendon on the left proximally. There is tenderness of the bilaterally medial epicondyles. Full range of motion of bilateral elbows. IMPRESSION/REPORT/PLAN 1. Low back pain. 2. Lumbar spondylosis. 3. Lumbar spinal stenosis. 4. Fibromyalgia. 5. Bilateral medial elbow pain, most consistent with lateral medial chondrosis. 6. Left shoulder pain. 7. Left proximal medial thigh pain. 8. Bilateral foot pain. Ms. Jurado neurologic examination is unchanged. I feel that her symptoms are multifactorial. I feel her left shoulder pain is a combination of both left shoulder impingement syndrome as wellas left proximal biceps tendinopathy. I feel her left hip pain is most consistent a left adductor strain and she may have a component of left hip degenerative joint disease as well contributing to her symptoms. I feel that her bilateral foot pain is multifactorial. 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 PLAN: 1. We are going to proceed today with x-rays of the bilateral feet with Ms. Caro's discomfort. 2. I did discuss having her return to Occupational Therapy with respect to her bilateral medial epicondylosis and left shoulder pain. At the current time she would like to defer that and instead we aregoing to implement many of the exercises that she has already been instructed on and has performed and which are excellent. At this time I am going to have her begin icing the shoulder and the bilateral medial elbows on a regular basis. 3. I am going have her reinstitute the exercises she was shown previously for her left hip includingher hip group strengthening exercises. 4. We will plan on being in contact with her following the results of her bilateral foot x-rays to discuss the results and the next step for management with respect to her foot pain. Ms. Caro knows to be in contact with me prior to that time if she notes any worsening symptoms which we wentover in detail today. She voiced agreement and understanding with this plan. Total time 30 minutes, counseling time greater than 20 minutes. Yobani Man M.D./veena Electronically Signed By: YOBANI MAN MD On: 03/21/2016 03:48 PM Modified by and Electronically Signed by: YOBANI MAN MD On: 03/21/2016 03:48 PM Source: [facility] MHSDOLBEYNONRADSYS Document Id: [id number] documented in this encounter Miscellaneous Notes Telephone Encounter - Conversion, Historical Provider Ser - 03/21/2016 4:02 PM CST *Phone Message/Dr. Man Document Contains Addenda Addendum by KATE GIRALDO LPN on March 21, 2016 16:55:37 LPC Patient notified of xray results. From: CHELA CASTILLO ( [place] [employer]) To: Physical Medicine and Rehabilitation Staff; Sent: 03/21/2016 16:02:52 LPC Subject: *Phone Message/Dr. Man Caller is: ( x ) Patient ( ) Mother ( ) Father ( ) Spouse ( ) Daughter ( ) Son ( ) Pharmacy ( ) Other: Physician: Dr. Man Patient MRN #: Reason for Call: Message: Patient states that she had xrays on her feet on Friday and Dr. Man was going to call her back with results. She still has not heard anything. Please call her back at [phone] with results. Advice/Action: Source used: ( ) Verbalizes understanding of instructions ( ) Instructed to call back if symptoms worsen or do not resolve ( ) Refused to see provider ( ) Appointment Scheduled ( ) OK to leave message on voice mail ( ) Patient told to expect return call: ( ) today ( ) tomorrow ( ) next work day ( ) Patient's email ( ) Patient told physician out of office, will call upon return call on ( ) ( ) Patient told physician out of office, routed to other physician ( ) Other ( ) Call back telephone number ( ) Call back cell phone number ( ) Source: [facility] [employer] Document Id: [id number] Miscellaneous - Yobani Man M.D. - 03/19/2016 12:15 PM CST Ambulatory Patient Summary [address] [id number] Visit Information Name: YAZ CARO [facility] Number: [id number] Current Date: 03/19/2016 12:15:29 Physicians Attending Provider: YOBANI MAN MD Primary [...] Take Indications/Special Instructions/Comments/Notes for Patient Medication Changes/Routing *calcium-vitamin D (Calcium 600+D) 1 Tablet(s), Oral, three [...] 1 cap, Oral, two times a day *simvastatin (simvastatin) Oral, once a day (at bedtime) venlafaxine (Effexor XR 150 mg oral capsule, extended release) 1 cap, Oral, once a day * You have let us know that you are not taking this medication as listed. Please talk with your primary care provider or the health care provider who prescribed the medication as soon as possible. Stop Taking the Following Medications: Medication list as of 03-19-16 12:15 Attention: If you have any medications at [...] Electronically Signed By: YOBANI MAN MD Signed On:19-MAR-2016 12:14:49 Your Allergies & Intolerances Substance Reaction Symptoms [...] if you dont have one. Go to [email or web address] and click on Create Your Account. Then, follow the directions to complete the online form. Youll be asked for your [facility] number which you can find at the top of this document. Your Goals/Additional instructions: Source: [facility] Document Id: [id number] Miscellaneous - Yobani Man M.D. - 03/19/2016 12:15 PM CST Ambulatory Discharge Medication List [address] [id number] Visit Information Name: YAZ CARO [facility] Number: [id number] Current Date: 03/19/2016 12:15:28 Attending Provider: YOBANI MAN MD Primary Care [...] Take Indications/Special Instructions/Comments/Notes for Patient Medication Changes/Routing *calcium-vitamin D (Calcium 600+D) 1 Tablet(s), Oral, three [...] 1 cap, Oral, two times a day *simvastatin (simvastatin) Oral, once a day (at bedtime) venlafaxine (Effexor XR 150 mg oral capsule, extended release) 1 cap, Oral, once a day * You have let us know that you are not taking this medication as listed. Please talk with your primary care provider or the health care provider who prescribed the medication as soon as possible. Stop Taking the Following Medications: Medication list as of 03-19-16 12:15 Attention: If you have any medications at [...] Electronically Signed By: YOBANI MAN MD Signed On:19-MAR-2016 12:14:49 Additional Information: Source: [facility] [employer] Document Id: [id number] Miscellaneous - Kate Giraldo L.P.N. - 03/19/2016 11:12 AM CST Adult Cissp Intake/History Adult Cissp Intake/History Entered On: 03/19/2016 11:13 LPC Performed On: 03/19/2016 11:12 LPC by KATE GIRALDO LPN Intake Systolic Blood Pressure : 112 mmHg Diastolic Blood Pressure : 72 mmHg NIBP Mean : 85 mmHg BP Location : Left upper extremity Blood Pressure Cuff Size : Large Actual Weight : 120.25 kg(Converted to: 265 lb 2 oz) Dosing Weight Clinic : 120.25 kg KATE GIRALDO LPN - 03/19/2016 11:12 LPC General Info Information Given By : Patient Languages : Telugu Is Patient Female and 13-50 no hysterectomy : No KATE GIRALDO LPN - 03/19/2016 11:12 LPC Subjective Pain Symptoms : No KATE GIRALDO LPN - 03/19/2016 11:12 LPC Dependent Habits Exposure to Tobacco Smoke : Other: never Smoking Status : Never smoker Tobacco 2A : No Tobacco Use/Currently Using : No Tobacco Use/Last 30 Days : No Tobacco Use/Last 12 months : No KATE GIRALDO LPN - 03/19/2016 11:12 LPC [facility] Document Id: [id number] documented in this encounter Plan of Treatment Not on filedocumented as of this encounter Procedures Procedure Name Priority Date/Time Associated Diagnosis Comme nts DX FOOT RIGHT 3+ Routine 03/19/2016 12:25 PM Resu lts for this VIEWS LPC procedure are i n the results section. DX FOOT LEFT 3+ Routine 03/19/2016 12:25 PM Resul ts for this VIEWS LPC procedure are i n the results section. documented in this encounter Results DX Foot Left 3+ Views (03/19/2016 12:25 PM LPC) Anatomical Region Laterality Modality Lower Extremity, Foot Left Radiographic Imagi ng Specimen (Source) Anatomical Collection Method Collection Time Re ceived Time Location / / Volume Laterality 03/19/2016 12:25 PM LPC Addenda Addendum by Provider, Flynn Hopkins 03/19/2016 12:25 PM LPC RAD^^^OW XR Foot Left 3 or more views 03/19/2016 12:25:28 Impressions 03/19/2016 12:55 PM LPC ??Please see above dictation. Narrative 03/19/2016 12:55 PM LPC EXAM: ??XR Foot Left 3 or more views AGE: ??60 years old. GENDER: ??Female. INDICATION: ??foot pain, primarily at 1s t MTP joints COMPARISON: ??September 26, 2014 FINDINGS: ??Mild/moderate prominent dege nerative changes of the left first MTP joint space. No appreciable acute osseous injury of t he left foot. No radiopaque foreign bodies. If pain persists consider follow-up imag ing. Procedure Note Solis Guan M.D. / Provider, Natty celestin M.D. - 09/02/2016 EXAM: XR Foot Left 3 or more views AGE: [age] years old. GENDER: Female. INDICATION: foot pain, primarily at 1st MTP joints COMPARISON: September 26, 2014 FINDINGS: Mild/moderate prominent degene rative changes of the left first MTP joint space. No appreciable acute osseous injury of t he left foot. No radiopaque foreign bodies. If pain persists consider follow-up imag ing. IMPRESSION: Please see above dictation. Historical Provider IMG DIAGNOSTIC IMAGING PROCE DURES DX Foot Right 3+ Views (03/19/2016 12:25 PM LPC) Anatomical Region Laterality Modality Lower Extremity, Foot Right Radiographic Imagi ng Specimen (Source) Anatomical Collection Method Collection Time Re ceived Time Location / / Volume Laterality 03/19/2016 12:25 PM LPC Addenda Addendum by Provider, Flynn Hopkins 03/19/2016 12:25 PM LPC RAD^^^OW XR Foot Right 3 or more views 03/19/2016 12:25:28 Impressions 03/19/2016 12:56 PM LPC ??Please see above dictation. Narrative 03/19/2016 12:56 PM LPC EXAM: ??XR Foot Right 3 or more views AGE: ??60 years old. GENDER: ??Female. INDICATION: ??foot pain, primarily at 1s t MTP joints COMPARISON: ??None. FINDINGS: ??Mild/moderate prominent dege nerative changes of the right first MTP joint space. Small right calcaneal heel spur. No appreciable erosions. No radiopaque f oreign bodies. If pain persists consider follow-up imag ing. Procedure Note Solis Guan M.D. / Provider, Natty celestin M.D. - 09/02/2016 EXAM: XR Foot Right 3 or more views AGE: [age] years old. GENDER: Female. INDICATION: foot pain, primarily at 1st MTP joints COMPARISON: None. FINDINGS: Mild/moderate prominent degene rative changes of the right first MTP joint space. Small right calcaneal heel spur. No appreciable erosions. No radiopaque f oreign bodies. If pain persists consider follow-up imag ing. IMPRESSION: Please see above dictation. Historical Provider IMG DIAGNOSTIC IMAGING JOSE BOYD documented in this encounter Visit Diagnoses Not on filedocumented in this encounter Additional Health Concerns Assessment Noted Time PHQ-9 Depression Total Score: 4 08/10/2015 9:06 AM CDT documented as of this encounter
--- OUTSIDE RECORDS SUMMARY | 2022-01-12 12:37 | XMS_ITS | Encounter Summary ---
:1955 Author Organization [facility] Address [address] [place] [address] Care Team Providers Name Role Phone Unavailable Primary Care Provider Unavailable Encounter Details Date Type Department Care Team Description 08/28/2016 Hospital Encounter HX [facility] Guido Man M.D. [address] [place] [address], [address] [place] [address] (Wo rk) Social History Tobacco [...] do you attend bahai or Never 2021 buddhist services? Do you belong to any clubs [...] Sign Reading Time Taken Comments Blood Pressure 136/86 08/28/2016 10:53 AM CDT Pulse - - Temperature - - Respiratory Rate - - Oxygen Saturation - - Inhaled Oxygen Concentration - - Weight 123 kg (271 lb 6.2 oz) 08/28/2016 10:53 AM CDT Height - - Body Mass Index 40.2 08/11/2015 10:46 AM CDT documented in this [...] encounter Progress Notes Yobani Man M.D. - 08/28/2016 10:27 AM CDT [id number] CHIEF COMPLAINT/REASON FOR VISIT Bilateral foot pain, bilateral lower extremity paresthesias and diffuse pain consistent with fibromyalgia. HISTORY OF PRESENT ILLNESS Ms. Caro returns today in followup. Her mother suffered a fall in [place] and so she wentemergently to visit her and was gone for a few weeks. She returned 1 week ago. She reports in [place] she was having issues with bilateral lower extremity edema primarily involving the bilateral feet. She did contact Dr. Madrid who has given a prescription and was instructed to use compression stockings and that has helped. However she is having pain again in her bilateral feet which is limiting for her. This is especially present at night and can make it difficult for her to sleep. She describes this as an achy, alternating with pins and needles type sensation occurring in the dorsum of the footas well as she can have discomfort in the region of the medial plantar foot as well. The right foot is more affected than the left. She also describes low back pain. This has been a chronic issue for her. She reports that with beingout of her routine that flared her symptoms while she was in [place]. She has started using the bikeagain for approximately 10 minutes since she has returned. She denies any new symptoms. She denies any changes such as change in bowel or bladder habits, fever or chills, recent unintentional weight loss. PHYSICAL EXAMINATION GENERAL: Pleasant 61-year-old female in no acute distress. EXTREMITIES: Ankle range of motion from a few degrees of dorsiflexion to 45 degrees of plantar flexion bilaterally. Normal strength with testing ankle groups bilaterally. There is diffuse tenderness topalpation over the dorsum of the foot bilaterally. There is also some tenderness to palpation along the anteromedial calcaneus bilaterally. There is decreased sensation to light touch in a stocking distribution to the level of the ankles. IMPRESSION/REPORT/PLAN 1. Bilateral lower extremity paresthesias. 2. Peripheral neuropathy. 3. Lumbar spinal stenosis. 4. Lumbar spondylosis. 5. Fibromyalgia. I feel that Ms. Caro's foot pain is multifactorial. I do feel a significant amount of herdiscomfort is related to her peripheral neuropathy and much of her symptoms do appear neuropathic especially the symptoms that she experiences at night. PLAN: 1. I am going have Ms. Caro use a Lidoderm patch to each foot at bedtime to see if this can help her sleep more comfortably with the symptoms she can experience. 2. She will continue to work on an aerobic exercise program for her fibromyalgia. 3. Ms. Caro knows to be in contact with us if she notes any worsening or worrisome symptoms which we went over in detail today. She voiced agreement and understanding with this plan. Total time 25 minutes, counseling and coordination of care time greater than 15 minutes. Yobani Man M.D./veena Electronically Signed By: YOBANI MAN MD On: 09/03/2016 04:31 PM Modified by and Electronically Signed by: YOBANI MAN MD On: 09/03/2016 04:31 PM Source: [facility] MHSDOLBEYNONRADSYS Document Id: [id number] documented in this encounter Miscellaneous Notes Telephone Encounter - Conversion, Historical Provider Ser - 08/28/2016 4:33 PM CDT *Phone Message/Dr. Man Document Contains Addenda Addendum by JORGE LUIS WONG LPN on September 16, 2016 15:57:05 CDT There is a notice in patinets chart that this was a verbal request to withdraw the prior authorizaitons. Addendum by MANINDER GAITAN CMA on September 10, 2016 07:37:27 CDT From: MANINDER GAITAN CMA To: / Medication Prior Auth; Sent: 09/10/2016 07:37:27 CDT Subject: FW: *Phone Message/Dr. Man Addendum by KATE GIRALDO LPN on September 09, 2016 11:13:11 CDT From: KATE GIRALDO LPN ( Physical Medicine and Rehabilitation Staff) To: MANINDER GAITAN CMA; Sent: 09/09/2016 11:13:11 CDT Subject: FW: *Phone Message/Dr. Man Patient called and stated that her insurance told her that they have no record of this? Can you check? Addendum by FARIDEH BROCK on September 06, 2016 15:14:36 CDT Patient called back, would like update on prior auth. Please call [phone] Addendum by KATE GIRALDO LPN on August 28, 2016 16:48:50 CDT Notified that will start prior auth From: CHELA CASTILLO ( [place] [employer]oom [employer]er) To: Physical Medicine and Rehabilitation Staff; Sent: 08/28/2016 16:33:58 CDT Subject: *Phone Message/Dr. Man Caller is: (x ) Patient ( ) Mother ( ) Father ( ) Spouse ( ) Daughter ( ) Son ( ) Pharmacy ( ) Other: Physician: Dr. Man Patient MRN #: Reason for Call: Message: Patient states that she needs a prior auth on one of the prescriptions Dr. Man sent in for her today. She also needs one of the orders doubled. He ordered it for one foot, but she needs it for both. Please call her back at [phone]. Advice/Action: Source used: ( ) Verbalizes understanding [...] back cell phone number ( ) Source: [facility] Document Id: [id number] Miscellaneous - Yobani Man M.D. - 08/28/2016 11:24 AM CDT Ambulatory Patient Summary [address] [id number] Visit Information Name: YAZ CARO [facility] Number: [id number] Current Date: 08/28/2016 11:24:28 Physicians Attending Provider: YOBANI MAN MD Primary [...] of application within a 24 hr period Routed to [address] [place], [place] [id number] loratadine (loratadine 10 mg oral tablet) 1 [...] the Following Medications: Medication list as of 08-28-16 11:24 Attention: If you have any medications at [...] Electronically Signed By: YOBANI MAN MD Signed On:28-AUG-2016 11:24:00 Your Allergies & Intolerances Substance Reaction Symptoms Category Comments penicillins Drug Your Problem List Problem Status Onset Comments No Chronic Problems Active Your Upcoming Appointments Date Time Location Provider 08/29/2016 13:15 [facility] José Miguel GARZA, [place] Attention: Contact your local Clinic if further [...] online form. Youll be asked for your [facility] number which you can find at the top of this document. Your Goals/Additional instructions: Source: [facility] POWERCHART Document Id: [id number] Miscellaneous - Yobani Man M.D. - 08/28/2016 11:24 AM CDT Ambulatory Discharge Medication List [address] [id number] Visit Information Name: YAZ CARO [facility] Number: [id number] Current Date: 08/28/2016 11:24:27 Attending Provider: YOBANI MAN MD Primary Care [...] of application within a 24 hr period Routed to [address] [id number] loratadine (loratadine 10 mg oral tablet) 1 [...] the Following Medications: Medication list as of 08-28-16 11:24 Attention: If you have any medications at [...] Electronically Signed By: YOBANI MAN MD Signed On:28-AUG-2016 11:24:00 Additional Information: Source: [facility] [employer] Document Id: [id number] Miscellaneous - Kate Giraldo L.P.N. 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 Intake/History Entered On: 08/28/2016 10:55 CDT Performed On: 08/28/2016 10:53 CDT by KATE GIRALDO LPN Intake Systolic Blood Pressure : 136 mmHg Diastolic Blood Pressure : 86 mmHg NIBP Mean : 103 mmHg BP Location : Left upper extremity Blood Pressure Cuff Size : Regular Actual Weight : 123.10 kg(Converted to: 271 lb 6 oz) Dosing Weight Clinic : 123.1 kg KATE GIRALDO LPN - 08/28/2016 10:53 CDT General Info Information Given By : Patient Languages : Belarusian Is Patient Female and 13-50 no hysterectomy : No KATE GIRALDO LPN - 08/28/2016 10:53 CDT Subjective Pain Symptoms : No KATE GIRALDO LPN - 08/28/2016 10:53 CDT Dependent Habits Exposure to Tobacco Smoke : Other: never Smoking Status : Never smoker Tobacco 2A : No Tobacco Use/Currently Using : No Tobacco Use/Last 30 Days : No Tobacco Use/Last 12 months : No KATE GIRALDO LPN - 08/28/2016 10:53 CDT [facility] Document Id: [id number] CDT!22 Miscellaneous - Yobani Man M.D. - 08/28/2016 12:00 AM CDT [id number] August 28, 2016 RE: Yaz Caro : 1955 To Whom It May Concern: Thank you very much for reviewing Ms. Caro's situation. She is a very pleasant 61-year-old female who I have followed for a variety of different issues. She has fibromyalgia, lumbar spondylosis, lumbar spinal stenosis, and bilateral lower extremity paresthesias consistent with peripheral neuropathy. With her multiple issues, it would make it difficult for her to sit in economy class on an airline. She flew business class recently to see her mother in [place] which with her multiple musculoskeletal issues was necessary for her in order not to exacerbate her symptoms. Sincerely, Yobani Man M.D. Department of Physical Medicine and Rehabilitation [place] [address] Phone: cac Electronically Signed By: YOBANI MAN MD On: 09/03/2016 04:41 PM Modified by and Electronically Signed by: YOBANI MAN MD On: 09/03/2016 04:41 PM Source: [facility]SDOLBEYNONRADSYS Document Id: [id number] documented in this encounter Plan of Treatment Not on filedocumented as of this encounter Visit Diagnoses Not on filedocumented in this encounter Additional Health Concerns Assessment Noted Time PHQ-9 Depression Total Score: 5 04/29/2016 10:10 AM CS T documented as of this encounter
--- OUTSIDE RECORDS SUMMARY | 2022-01-12 12:37 | XMS_ITS | Encounter Summary ---
:1955 Author Organization [facility] Address [address] [place] [address] Care Team Providers Name Role Phone Unavailable Primary Care Provider Unavailable Encounter Details Date Type Department Care Team Description 05/01/2016 Hospital Encounter HX [facility] Guido Man M.D. [address] [place] [address], [address] [place] [address] (Wo rk) Social History Tobacco [...] do you attend gnosticist or Never 2021 confucianist services? Do you [...] Sign Reading Time Taken Comments Blood Pressure 114/74 05/01/2016 1:54 PM LEGAL SERVICES MANAGER Pulse - - Temperature - - Respiratory Rate - - Oxygen Saturation - - Inhaled Oxygen Concentration - - Weight 123 kg (271 lb 4.4 oz) 05/01/2016 1:54 PM LEGAL SERVICES MANAGER Height - - Body Mass Index 40.18 08/11/2015 10:46 AM CDT documented in this [...] encounter Progress Notes Yobani Man M.D. - 05/01/2016 1:29 PM CST [id number] CHIEF COMPLAINT/REASON FOR VISIT Left shoulder pain, bilateral foot pain, and bilateral lower extremity paresthesias. HISTORY OF PRESENT ILLNESS Ms. Adames returns today in followup. She has a few issues that she would like to discuss. The 1st is her bilateral lower extremity paresthesias. She has noted she has been experiencing more of a burning sensation as well as electrical sensation in her bilateral lower extremities. She reportsthe night tends to bring on increase in her restless legs syndrome. She has been using Mirapex for that which she does find to be helpful but these symptoms become especially worse in the early afternoon. As discussed in my note previously, she continues to have pain in her left shoulder. She did have x-rays performed of her left clavicle in [place]. She brought the images for me today but unfortunately I am not able to open it on my computer but I am going to see if we can have these loaded on the QREADS so that I can use it. She again describes pain as located primarily in the anterior shoulder. PHYSICAL EXAMINATION GENERAL: Pleasant 60-year-old female in no acute distress. GAIT: Nonantalgic, although she takes slow steady steps. EXTREMITIES: There is no warmth or erythema of the great toes. There is mild tenderness to palpationagain in the region of 1st MTP joints bilaterally. Sensation decreased, sensation to light touch in the toes bilaterally. IMPRESSION/REPORT/PLAN 1. Bilateral lower extremity paresthesias. 2. Peripheral neuropathy. 3. Lumbar spinal stenosis. 4. Lumbar spondylosis. 5. Fibromyalgia. 6. Left shoulder pain. PLAN: 1. I am going to place Ms. Adames on additional 50 mg of Lyrica that she will take in the early afternoon. Therefore will bring her total dose to a dose of 350 mg daily. She will take 150 mg in the morning, 50 mg in the afternoon and 150 mg at bedtime. I am hopeful this will help with maybe the neuropathic symptoms she can experience in the afternoons that then lead to more restless leg typesymptoms she experiences. 2. I am going to see if we can load the x-rays that she brought with her of her left clavicle onto QREADS so that I am able to visualize them as I am unable to open it today with respect to the x-rays that she had performed at [facility]. 3. I am going to have her begin icing the shoulder on a regular basis. We did discuss the possibility of potentially proceeding with an ultrasound-guided left subacromial/subdeltoid bursa corticosteroid injection depending on how she is progressing as mentioned above and after my review of her x-rays.Ms. Bebeto Multani knows to be in contact with me prior to that time if she notes any worsening or worrisome symptoms which we went over in detail today. Ms. Bebeto Multani voiced agreement and understanding with this plan. Total time 25 minutes, counseling and coordination of care time greater than 15 minutes. Yobani Man M.D./veena cc: [place] [address] Electronically Signed By: YOBANI MAN MD On: 05/06/2016 11:37 AM Modified by and Electronically Signed by: YOBANI MAN MD On: 05/06/2016 11:37 AM Source: [facility] MHSDOLBEYNONRADSYS Document Id: [id number] L SERVICES MANAGER documented in this encounter Nursing Notes Wilda Giraldo L.P.N. - 05/07/2016 5:01 PM CST xray results Patient notified of results and will call back if she decides to move forward with left subacromialinjection. Electronically Signed By: WILDA GIRALDO LPN On: 05/07/2016 05:02 PM [facility] Document Id: [id number] L SERVICES MANAGER Wilda Giraldo L.P.N. - 05/01/2016 2:41 PM CST [place] Called in Electronically Signed By: WILDA GIRALDO LPN On: 05/01/2016 02:42 PM Source: [employer] Document Id: [id number] L SERVICES MANAGER documented in this encounter Miscellaneous Notes Miscellaneous - Wilda Giraldo L.P.N. 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 Intake/History Entered On: 05/01/2016 13:56 LEGAL SERVICES MANAGER Performed On: 05/01/2016 13:54 LEGAL SERVICES MANAGER by WILDA GIRALDO LPN Intake Systolic Blood Pressure : 114 mmHg Diastolic Blood Pressure : 74 mmHg NIBP Mean : 87 mmHg BP Location : Left upper extremity Blood Pressure Cuff Size : Regular Actual Weight : 123.05 kg(Converted to: 271 lb 4 oz) Dosing Weight Clinic : 123.05 kg WILDA GIRALDO LPN - 05/01/2016 13:54 LEGAL SERVICES MANAGER General Info Information Given By : Patient Languages : Qatari Is Patient Female and 13-50 no hysterectomy : No WILDA GIRALDO LPN - 05/01/2016 13:54 LEGAL SERVICES MANAGER Subjective Pain Symptoms : No WILDA GIRALDO LPN - 05/01/2016 13:54 LEGAL SERVICES MANAGER Dependent Habits Exposure to Tobacco Smoke : Other: never Smoking Status : Never smoker Tobacco 2A : No Tobacco Use/Currently Using : No Tobacco Use/Last 30 Days : No Tobacco Use/Last 12 months : No WILDA GIRALDO LPN - 05/01/2016 13:54 LEGAL SERVICES MANAGER [facility] Document Id: [id number] LEGAL SERVICES MANAGER!22 L SERVICES MANAGER documented in this encounter Plan of Treatment Not on filedocumented as of this encounter Visit Diagnoses Not on filedocumented in this encounter Additional Health Concerns Assessment Noted Time PHQ-9 Depression Total Score: 5 04/29/2016 10:10 AM CS T documented as of this encounter
--- OUTSIDE RECORDS SUMMARY | 2022-01-12 12:37 | XMS_ITS | Encounter Summary ---
:1955 Author Organization [facility] Address [address] [place] [address] Care Team Providers Name Role Phone Unavailable Primary Care Provider Unavailable Encounter Details Date Type Department Care Team Description 10/11/2015 Hospital Encounter HX [facility] Guido Man M.D. [address] [place] [address], [address] [place] [address] (Wo rk) Social History Tobacco [...] or relatives? How often do you attend rastafarian or Never 2021 jainism services? Do you belong to any clubs or Yes 12/12/2021 organizations such as rastafarian groups, unions, fraternal or athletic groups, or [...] Sign Reading Time Taken Comments Blood Pressure 136/80 10/11/2015 8:27 AM CDT Pulse - - Temperature - - Respiratory Rate - - Oxygen Saturation - - Inhaled Oxygen Concentration - - Weight 120 kg (263 lb 7.2 oz) 10/11/2015 8:27 AM CDT Height - - Body Mass Index 39.02 08/11/2015 10:46 AM CDT documented in this [...] loratadine (for_CLARITIN) Take 1 tablet by 0 /08/200912/27/2021 10 mg tablet mouth daily. quinapril-hydroCHLOROthia Take 1 tablet by 0 /08/200907/21/2017 zide (for_ACCURETIC) mouth daily. 20-12.5 mg per tablet valACYclovir (VALTREX) Take 1 tablet by 0 010 06/23/2020 1000 mg tablet mouth as needed. documented as of this encounter Progress Notes Yobani Man M.D. - 10/11/2015 8:17 AM CDT [id number] CHIEF COMPLAINT/REASON FOR VISIT Low back and right hip pain. HISTORY OF PRESENT ILLNESS Ms. Caro returns today in followup. She reports that overall she has been doing well. Shehas been able to institute using her recumbent bicycle 30 minutes in the morning and she has also been able to walk 45 minutes in the afternoon which is excellent. She still has pain but she has been employing many of the techniques that she has learned through the [facility] and she has been able to push through that and is able to exercise on a regular basis. The greatest area of discomfort for her has been her right lateral hip. This pain is bothersome for her when she lies on herright side at night which can make it difficult for her to sleep. She also tries to ignore this painwhen she is ambulating but that is present at times as well. She is going to be leaving for [place] to spend a month with her mother next week and so is interested in options to help with the pain for that trip. PHYSICAL EXAMINATION GENERAL: Pleasant 60-year-old female in no acute distress. MUSCULOSKELETAL: Spine: -1 globally decreased lumbar spine range of motion. Palpation: There is tenderness to palpation over the right greater than left lower lumbar paraspinals. There is also marked tenderness to palpation in the right greater trochanteric bursa region. Strength: All major muscle groups of the bilateral lower extremities have normal and symmetric muscle strength, bulk and tone except for -1 weakness testing of the right hip abductors. IMPRESSION/REPORT/PLAN 1. Right greater trochanteric pain syndrome. 2. Low back pain. 3. Lumbar spondylosis. 4. Lumbar spinal stenosis. 5. Fibromyalgia. Overall, Ms. Caro is doing very well and has implemented an excellent aerobic exercise program and is employing the techniques that she learned in the [facility]. PLAN: 1. Ms. Dilcia Multani did have an ultrasounded guided right greater trochanteric bursa corticosteroid injection performed 2 months ago. This was helpful for her and she still feels improved overall, but has continued to be bothered by symptoms and is concerned that her pain will limit her on her upcom ing several week trip to [place]. Therefore, I do feel that it would be reasonable to proceed today with an ultrasound-guided right greater trochanteric bursa corticosteroid injection with her continued symptoms, especially at night, and her upcoming trip. 2. Ms. Caro will continue the exercises she was shown independently in physical therapy as well as continue to employ the techniques that she learned in the [facility]. 3. We will plan on being in contact with Ms. Caro in 2 weeks to assess her progress following today's procedure. Ms. Caro knows to be in contact with us prior to that time if she notes any worsening or worrisome symptoms which we went over in detail today. Ms. Caro voiced agreement and understanding of this plan. Total time 25 minutes, counseling time greater than 15 minutes. Yobani Man M.D./veena Electronically Signed By: YOBANI MAN MD On: 10/11/2015 06:13 PM Modified by and Electronically Signed by: YOBANI MAN MD On: 10/11/2015 06:13 PM Source: [facility] MHSDOLBEYNONRADSYS Document Id: [id number] documented in this encounter Procedure Notes Yobani Man M.D. - 10/11/2015 12:00 AM CDT 1RPT DIAGNOSIS Right greater trochanteric bursitis. HISTORY/INDICATION: Please see my clinical note dated 10/11/2015 for details of the HPI. PROCEDURE PERFORMED: [...] A preprocedure image was saved to the harddrEtherpad. Following this, the area was prepped with [...] Electronically Signed By: YOBANI MAN MD On: 10/11/2015 06:14 PM Modified by and Electronically Signed by: YOBANI MAN MD On: 10/11/2015 06:14 PM Source: [facility] MHSDOLBEYNONRADSYS Document Id: [id number] documented in this encounter Miscellaneous Notes Miscellaneous - Kate Giraldo L.P.N. - 10/11/2015 1:45 PM CDT Reminder Msg Document Contains Addenda Addendum by DONALD DEL VALLE LPN on November 23, 2015 15:50:22 CDT From: DONALD DEL VALLE LPN ( Physical Medicine and Rehabilitation Staff) To: YOBANI MAN MD; Sent: 11/23/2015 15:50:22 CDT Show up: 11/23/2015 15:50:00 CDT Subject: RE: Reminder Msg Addendum by DONALD DEL VALLE LPN on November 23, 2015 15:49:53 CDT Patient states the pain is better than before the injection but not a lot. She has an appointment on Dec 03 and will talk with Dr Man then. Addendum by DONALD DEL VALLE LPN on November 23, 2015 15:35:36 CDT Left message to return call. Addendum by DONALD DEL VALLE LPN on November 21, 2015 10:20:46 CDT Left message to return call. From: KATE GIRALDO LPN ( Physical Medicine and Rehabilitation Staff) To: Physical Medicine and Rehabilitation Staff; Sent: 10/11/2015 13:45:35 CDT Show up: 11/20/2015 13:45:00 CDT Subject: Reminder Msg Please Remember to: call patient to see how she is doing after right troch corticosteroid injection. PATIENT: ( ) Call Patient ( ) Ask Patient to ( ) ( ) Call Relative ( ) Schedule Patient ( ) ( ) Call for Vp Delivery ( ) Follow up on Results ( ) Other: PROVIDER: ( ) Call Physician ( ) Call Pharmacist ( ) Call Lab ( ) Other: Special Instructions: Comments: Source: [facility] POWERCHART Document Id: [id number] Miscellaneous - Yobani Man M.D. - 10/11/2015 8:48 AM CDT Ambulatory Discharge Medication List [address] [id number] Visit Information Name: YAZ CARO [facility] Number: [id number] Visit Date: 10/11/2015 08:48:11 Attending Provider: YOBANI MAN MD Primary Care [...] the Following Medications: Medication list as of 10-11-15 08:48 Attention: If you have any medications at [...] Electronically Signed By: YOBANI MAN MD Signed On:11-OCT-2015 08:47:46 Additional Information: Source: [facility] POWERCHART Document Id: [id number] Miscellaneous - Yobani Man M.D. - 10/11/2015 8:48 AM CDT Ambulatory Patient Summary [address] [id number] Visit Information Name: YAZ CARO [facility] Number: [id number] Current Date: 10/11/2015 08:48:12 Physicians Attending Provider: YOBANI MAN MD Primary [...] the Following Medications: Medication list as of 10-11-15 08:48 Attention: If you have any medications at [...] Electronically Signed By: YOBANI MAN MD Signed On:11-OCT-2015 08:47:46 Your Allergies & Intolerances Substance Reaction Symptoms [...] if you dont have one. Go to [email or web address] and click on Create Your Account. Then, follow the directions to complete the online form. Youll be asked for your [facility] number which you can find at the top of this document. Your Goals/Additional instructions: Source: [facility] POWERCHART Document Id: [id number] Miscellaneous - Kate Giraldo, L.P.N. - 10/11/2015 8:27 AM CDT Adult Geospatial Analyst Intake/History Adult Geospatial Analyst Intake/History Entered On: 10/11/2015 8:29 CDT Performed On: 10/11/2015 8:27 CDT by KATE GIRALDO LPN Intake Systolic Blood Pressure : 136 mmHg Diastolic Blood Pressure : 80 mmHg NIBP Mean : 99 mmHg BP Location : Left upper extremity Blood Pressure Cuff Size : Large Actual Weight : 119.5 kg(Converted to: 263 lb 7 oz) Dosing Weight Clinic : 119.5 kg KATE GIRALDO LPN - 10/11/2015 8:27 CDT General Info Information Given By : Patient Languages : Chinese Is Patient Female and 13-50 no hysterectomy : No KATE GIRALDO LPN - 10/11/2015 8:27 CDT Subjective Pain Symptoms : No KATE GIRALDO LPN - 10/11/2015 8:27 CDT Dependent Habits Exposure to Tobacco Smoke : Other: never Smoking Status : Never smoker Tobacco 2A : No Tobacco Use/Currently Using : No Tobacco Use/Last 30 Days : No Tobacco Use/Last 12 months : No KATE GIRALDO LPN - 10/11/2015 8:27 CDT Source: [facility] Document Id: [id number] CDT!22 documented in this encounter Plan of Treatment Not on filedocumented as of this encounter Visit Diagnoses Not on filedocumented in this encounter Additional Health Concerns Assessment Noted Time PHQ-9 Depression Total Score: 4 08/10/2015 9:06 AM CDT documented as of this encounter
--- OUTSIDE RECORDS SUMMARY | 2022-01-12 12:37 | XMS_ITS | Encounter Summary ---
:1955 Author Organization [facility] Address [address] [place] [address] Care Team Providers Name Role Phone Unavailable Primary Care Provider Unavailable Encounter Details Date Type Department Care Team Description 12/18/2015 Hospital Encounter HX RST PRC JANINAFEKaye Barbosa, ADULT TEST MANAGER, GREEN LUMBER GRADER, R.N. [address], [address] [place], [place] [address] (Wo rk) Social History Tobacco Use Types [...] or relatives? How often do you attend orthodoxy or Never 2021 lutheran services? Do you belong to any clubs or Yes 12/12/2021 organizations such as orthodoxy groups, unions, fraternal or athletic groups, or [...]
--- OUTSIDE RECORDS SUMMARY | 2022-01-12 12:37 | XMS_ITS | Encounter Summary ---
:1955 Author Organization [facility] Address [address] [place] [address] Care Team Providers Name Role Phone Unavailable Primary Care Provider Unavailable Encounter Details Date Type Department Care Team Description 01/09/2017 Abstract Department of Family Medicine, Provider, Historical [facility], in [place], [place] [address] [place] [address] [facility] [phone] Social History Tobacco Use Types Packs/Day Years [...] you attend oriental orthodox or Never 2021 yazidism services? Do you [...]
--- OUTSIDE RECORDS SUMMARY | 2022-01-12 12:37 | XMS_ITS | Encounter Summary ---
:1955 Author Organization [facility] Address [address] [place] [address] Care Team Providers Name Role Phone Unavailable Primary Care Provider Unavailable Encounter Details Date Type Department Care Team Description 12/30/2016 Hospital Encounter HX [facility] Meghna Valdez M .D., M.P.H. [address] [place], [place] [phone] (Wo rk) Social History Tobacco Use Types [...] do you attend yazidism or Never 2021 mosque services? Do you belong to any clubs [...] Sign Reading Time Taken Comments Blood Pressure - - Pulse - - Temperature - - Respiratory Rate - - Oxygen Saturation - - Inhaled Oxygen Concentration - - Weight - - Height 176 cm (5' 9.29) 12/30/2016 12:41 PM CDT Body Mass Index - - documented in this encounter Medications at Time [...] Procedure Name Priority Date/Time Associated Comments Diagnosis CREATININE WITH Routine 12/30/2016 12:51 PM Resul ts for this EGFR, S/P CDT procedure are i n the results section. documented in this encounter Results Creatinine with Estimated GFR (MDRD) (12/30/2016 12:51 PM CDT) P athologist Signature Creatinine 0.66 0.60 - POWERCHART 1.10 MGDL HXeGFR (MDRD) >60 >=60 POWERCHART [id number] eGFR >60 >=60 POWERCHART Black/ [id number] Kosovan Specimen (Source) Anatomical Collection Method Collection Time Re ceived Time Location / / Volume Laterality Blood 12/30/2016 12:51 PM CDT Meghna Valdez M.D., M.P.H. LAB BLOOD ADD-ON Performing Organization Address City/State/ZIP Code Phon e Number POWERCHART POWERCHART NA documented in this encounter Visit Diagnoses Not on filedocumented in this encounter Additional Health Concerns Assessment Noted Time PHQ-9 Depression Total Score: 5 04/29/2016 10:10 AM CS T documented as of this encounter
--- OUTSIDE RECORDS SUMMARY | 2022-01-12 12:37 | XMS_ITS | Encounter Summary ---
:1955 Author Organization [facility] Address [address] [place] [address] Care Team Providers Name Role Phone Unavailable Primary Care Provider Unavailable Encounter Details Date Type Department Care Team Description 12/30/2016 Hospital Encounter HX [facility] MRI Meghna Valdez M .D., M.P.H. [address] [place], [place] [phone] (Wo rk) Social History [...] do you attend mormonism or Never 2021 zoroastrian services? Do you [...] - Height 176 cm (5' 9.29) 12/30/2016 12:34 PM CDT Body Mass Index - - [...] as needed. documented as of this encounter Procedure Notes Maday Ruelas R.T.(R), R.TCandy(R)(MR) - 12/30/2016 2:07 PM CDT Peripheral IV Peripheral IV Entered On: 12/30/2016 14:07 CDT Performed On: 12/30/2016 14:07 CDT by MADAY RUELAS RT (R) RT (R)(MR) Peripheral IV Peripheral IV Assess/Intervention Grid Peripheral IV #1 IV Activity : Start Number of Attempts : 2 Date of Insertion : 12/30/2016 CDT Discontinued Date : 12/30/2016 CDT IV Site : Antecubital Laterality : Right Catheter Size : 22 Catheter Type : Over the needle Site Condition : No complications MADAY RUELAS RT (R) RT (R)(MR) - 12/30/2016 14:07 CDT [facility] Document Id: [id number] CDT!13 documented in this encounter Plan of Treatment Not on filedocumented as of this encounter Procedures Procedure Name Priority Date/Time Associated Diagnosis Comme nts MR BRAIN WITHOUT Routine 12/30/2016 1:45 PM Resul ts for this AND WITH IV CDT procedure are i n CONTRAST the results section. documented in this encounter Results MR Brain without and with IV Contrast (12/30/2016 1:45 PM CDT) Anatomical Region Laterality Modality Head, Brain N/A Magnetic Resonance Specimen (Source) Anatomical Collection Method Collection Time Re ceived Time Location / / Volume Laterality 12/30/2016 1:45 PM CDT Addenda Addendum by Provider, Flynn Hopkins 12/30/2016 1:45 PM CDT RAD^^^OW MR Brain w ??and w o contrast 12/30/2016 13:45:45 MR Brain w ??and w o contrast Impressions 12/30/2016 3:13 PM CDT 1. ??No evidence of acute intracranial a bnormality. Specifically no intracranial hemorrhage, mass effect, mi dline shift or evidence of recent infarction. 2. ??Mild generalized parenchymal volume loss noted intracranially as detailed above. 3. ??Nonspecific multifocal T2 hyperinte nse changes bilateral cerebral hemispheric white matter likely related to chronic small vessel ischemic changes. 4. ??Slightly more focal nonspecific T2 hyperintense changes involving the central and posterior iwona, without associated abnormal enhancement or mass effect. This may sim ply also be related to chronic small vessel ischemic changes, though ot her etiologies are not excluded. Multisystem atrophy can demons trate focal T2 signal hyperintensity involving the iwona with a ssociated volume loss, though there is no associated atrophy involving the vermis, nor is there evidence of lentiform nuclear signal abn ormality to support multiple system atrophy. 5. ??No abnormal intracranial enhancemen t. 6. ??Cerebellopontine angles and interna l auditory canals are unremarkable in appearance. Narrative 12/30/2016 3:13 PM CDT EXAM: MR Brain w/ + w/o contrast INDICATION: vertigo. ??Headaches. ?? COMPARISON: None. ?? FINDINGS: ??No restricted water diffusio n to suggest recent infarction. No midline shift, mass effect or herniat ion. No abnormal blooming on gradient echo imaging to suggest intrapa renchymal hemosiderin. Normal flow voids and imaged portions of the ve rtebral, basilar and internal carotid arteries. Mild generalized recta l volume loss. Mild to moderate nonspecific T2 signal hyperinte nsities involving the white matter of both cerebral hemispheres with relatively random distribution, likely due to chronic micr ovascular ischemic changes/leukoaraiosis. No hydrocephalus or CHIARI malformation. ?? Ill-defined T2 signal hyperintensity is also noted involving the central and posterior iwona, with sparing of the iwona anteriorly. Overall volume of the iwona appears mildl y diminished, though similar to volume loss noted involving the cereb ral hemispheres. The vermis appears preserved. No associated signal diminishment is noted involving the lentiform nuclei. Following administration of intravenous gadolinium contrast, there is no abnormal intracranial enhancement. Orbital structures are unremarkable in a ppearance. Minimal mucosal thickening ethmoid air cells bilaterally . Visualized paranasal sinuses and mastoid air cells are otherwise kamran r. Internal auditory canals and cerebellopontine angles are unremark able in appearance. Procedure Note Reese Marie M.D. / ProviderNicole M.D. - 01/08/2017 EXAM: MR Brain w/ + w/o contrast INDICATION: vertigo. Headaches. COMPARISON: None. FINDINGS: No restricted water diffusion to suggest recent infarction. No midline shift, mass effect or herniat ion. No abnormal blooming on gradient echo imaging to suggest intrapa renchymal hemosiderin. Normal flow voids and imaged portions of the ve rtebral, basilar and internal carotid arteries. Mild generalized recta l volume loss. Mild to moderate nonspecific T2 signal hyperinte nsities involving the white matter of both cerebral hemispheres with relatively random distribution, likely due to chronic micr ovascular ischemic changes/leukoaraiosis. No hydrocephalus or CHIARI malformation. Ill-defined T2 signal hyperintensity is also noted involving the central and posterior iwona, with sparing of the iwona anteriorly. Overall volume of the iwona appears mildl y diminished, though similar to volume loss noted involving the cereb ral hemispheres. The vermis appears preserved. No associated signal diminishment is noted involving the lentiform nuclei. Following administration of intravenous gadolinium contrast, there is no abnormal intracranial enhancement. Orbital structures are unremarkable in a ppearance. Minimal mucosal thickening ethmoid air cells bilaterally . Visualized paranasal sinuses and mastoid air cells are otherwise kamran r. Internal auditory canals and cerebellopontine angles are unremark able in appearance. IMPRESSION: 1. No evidence of acute intracranial abn ormality. Specifically no intracranial hemorrhage, mass effect, mi dline shift or evidence of recent infarction. 2. Mild generalized parenchymal volume l oss noted intracranially as detailed above. 3. Nonspecific multifocal T2 hyperintens e changes bilateral cerebral hemispheric white matter likely related to chronic small vessel ischemic changes. 4. Slightly more focal nonspecific T2 hy perintense changes involving the central and posterior iwona, without associated abnormal enhancement or mass effect. This may sim ply also be related to chronic small vessel ischemic changes, though ot her etiologies are not excluded. Multisystem atrophy can demons trate focal T2 signal hyperintensity involving the iwona with a ssociated volume loss, though there is no associated atrophy involving the vermis, nor is there evidence of lentiform nuclear signal abn ormality to support multiple system atrophy. 5. No abnormal intracranial enhancement. 6. Cerebellopontine angles and internal auditory canals are unremarkable in appearance. Anika Hammond.T.(R)(CT), R.T.(R), R.T.(R)(MR) I MG MRI PROCEDURES documented in this encounter Visit Diagnoses Not on filedocumented in this encounter Additional Health Concerns Assessment Noted Time PHQ-9 Depression Total Score: 5 04/29/2016 10:10 AM CS T documented as of this encounter
--- OUTSIDE RECORDS SUMMARY | 2022-01-12 12:37 | XMS_ITS | Encounter Summary ---
:1955 Author Organization [facility] Address [address] [place] [address] Care Team Providers Name Role Phone Unavailable Primary Care Provider Unavailable Encounter Details Date Type Department Care Team Description 12/18/2015 Hospital Encounter HX RST PAIN REHAB Kaye Fitzpatrick, PSYCH OP INDUSTRIAL REGISTERED NURSE, RELIGION INSTRUCTOR, R.N. [address], [address] [place], [place] [address] (Wo rk) Social History Tobacco Use Types [...] do you attend sikh or Never 2021 roman catholic services? Do [...]
--- OUTSIDE RECORDS SUMMARY | 2022-01-12 12:37 | XMS_ITS | Encounter Summary ---
:1955 Author Organization [facility] Address [address] [place] [address] Care Team Providers Name Role Phone Unavailable Primary Care Provider Unavailable Encounter Details Date Type Department Care Team Description 11/27/2015 Hospital Encounter HX RST PAIN REHAB PSYCH Lokesh Kelly, OP RESIDENT ASSISTANT CNA, CIRCUS RIDER [address] [place] [phone] (Wo rk) Social History Tobacco Use Types [...] or relatives? How often do you attend zoroastrianism or Never 2021 hinduism services? Do you belong to any clubs or Yes 12/12/2021 organizations such as zoroastrianism groups, unions, fraternal or athletic groups, or [...]
--- OUTSIDE RECORDS SUMMARY | 2022-01-12 12:37 | XMS_ITS | Encounter Summary ---
:1955 Author Organization [facility] Address [address] [place] [address] Care Team Providers Name Role Phone Unavailable Primary Care Provider Unavailable Encounter Details Date Type Department Care Team Description 12/26/2016 Hospital Encounter HX [facility] Meghna Maradiaga M.D., M.P.H. [address] [place] [address] (Wo rk) Social History Tobacco [...] or relatives? How often do you attend orthodox or Never 2021 gnosticist services? Do you belong to any clubs or Yes 12/12/2021 organizations such as orthodox groups, unions, fraternal or athletic groups, [...] Sign Reading Time Taken Comments Blood Pressure 128/60 12/26/2016 10:40 AM CDT Pulse 70 12/26/2016 10:40 AM CDT Temperature - - Respiratory Rate - - Oxygen Saturation - - Inhaled Oxygen Concentration - - Weight 115 kg (254 lb 6.6 oz) 12/26/2016 10:40 AM CDT Height 176 cm (5' 9.29) 12/26/2016 10:40 AM CDT Body Mass Index 37.25 12/26/2016 10:40 AM CDT documented in this encounter Medications [...] documented as of this encounter Progress Notes Maxine Maradiaga M.D., M.P.H. - 12/26/2016 10:28 AM CDT [id number] HISTORY OF PRESENT ILLNESS A 61-year-old woman returns for follow up on a number of issues. She has diabetic length-dependent axonal peripheral neuropathy and we are managing her with pregabalin and topical ointment. She uses the appointment on an as-needed basis stating that she has good pain relief with that. The topical ointment has ketamine, lidocaine and ketoprofen in it. The other issue is obstructive sleep apnea. She has a CPAP machine now with pressure setting of 10 cm of water pressure, EPR level of 3. Her average use is 6 hours and 23 minutes. Her AHI is 1.3. The leak per minute median is 0.4 L/minute, 95th percentile is 6.3. This device is working well and she is feeling well. Her AHI at today's visit is 12. The other concern she brings up is that she has had for some time sleep initiation difficulty and she goes to bed about between 11 and 12. She is practicing reasonably good sleep hygiene. If she goes to bed and does not sleep she gets up after an hour. She takes melatonin 1/2 hour before sleep. She takes pregabalin 1/2 hour before sleep. She still has difficulty sleeping. She does not feel anxious but she wonders whether her anxiety plays a part in that. She has had long-standing difficulty falling asleep and I pulled up on Up to Date medicines that she has tried in the past for sleep initiation, including the short-acting hypnotics and she does not seem to recognize any of them. She also did not recognize doxepin. Another issue she complains of is a sense of disequilibrium that she had during a particularly stressful day when she was going up and down stairs. She experienced tinnitus followed by a sense of disequilibrium. She felt like waves were coming over her and this sense of disequilibrium was quite upsetting. She also had substantial neck pain. She visited the Emergency Department where she was given lorazepam which she said helped, she said it did not help the sense of disequilibrium but it seemed to perhaps help the neck pain. In any case she also did massages to try to relieve neck pain and then thesense of disequilibrium or vertigo resolved. Her hemoglobin A1c is quite elevated. She is also going to see her psychiatrist because she feels like her anxiety is elevated and she hashad recent episodes of panic attacks she said that were unknown since she got off heavy use of ethanol. SYSTEMS REVIEW Diffusely positive. CONSTITUTIONAL: Complains of constipation. EAR/NOSE/THROAT: Congestion. CARDIOVASCULAR: Swollen feet. GASTROINTESTINAL: Vacillate between constipation and diarrhea. MUSCULOSKELETAL: Back, leg, joint pain, neck stiffness. PSYCHIATRIC: Depression, anxiety, panic attacks, and stress. MEDICATIONS I reviewed her medications with her today. She is taking: Effexor 150 mg extended release once a day. Pregabalin 150 mg 2 times a day. Pramipexole 0.125 mg 2 tablets at bedtime. Melatonin 3 mg tablets 1 at bedtime. Aspirin 81 mg a day. PHYSICAL EXAMINATION VITAL SIGNS: Today, blood pressure is 128/60. Pulse 70. She weighed 115 kg and 176 cm. NEUROLOGIC: Cranial nerves II through XII are normal. Motor examination reveals normal bulk, tone, and strength throughout. She has no pronator drift. Alternating rapid movements normal bilaterally. Sensation to light touch is normal. IMPRESSION/REPORT/PLAN 1. Peripheral neuropathy likely diabetic. She has at least reasonable pain control from that standpoint. Her hemoglobin A1c however is elevated. 2. Obstructive sleep apnea. This is admirably treated on the present settings. I really could not ask for any better control, low AHI, low leak. 3. She has insomnia both sleep maintenance and sleep initiation. I am going to add doxepin 3 mg at bedtime to see if that will help improve sleep. She is already on pregabalin which is reported to improve slow-wave sleep. Doxepin may also do that. If we could get her to fall asleep and improve slow-wave sleep that may improve her overall sleep quality. 4. Episode of transient tinnitus and vertigo. I am going to get an MRI of her brain to make sure shedoes not have ischemic event. I will plan to see her back in a month. Total time together was over 50 minutes, 40 in counseling. Lani Maradiaga M.D./veena Electronically Signed By: LANI MARADIAGA MD MPH On: 01/02/2017 09:07 AM Source: [facility] [place] MHSDOLBEYNONRADSYS Document Id: [id number] documented in this encounter Miscellaneous Notes Miscellaneous - Maxine Maradiaga M.D., M.P.H. - 12/26/2016 12:14 PM CDT Ambulatory Patient Summary [address] [id number] Visit Information Name: YAZ CARO [facility] Number: [id number] Current Date: 12/26/2016 12:14:10 Physicians Attending Provider: LANI MARADIAGA MD MPH Primary Care Provider: PCP, GABE CARO YAZ has been given the following list of [...] 2 Tablet(s), Oral, two times a day doxepin (doxepin 3 mg oral tablet) 1 Tablet(s), Oral, once a day (at bedtime) New Routed to [address] [id number] hydrochlorothiazide-quinapril (hydrochlorothiazide -quinapril 12.5mg- 20mg) 1 Tablet(s), [...] tablet) 1 Tablet(s), Oral, once a day *LORazepam (LORazepam) as needed for Anxiety melatonin (melatonin [...] the Following Medications: Medication list as of 12-26-16 12:14 Attention: If you have any medications at home that are not on this list, DO NOT take them until youcontact your provider for clarification. Give a copy of your medication list to your primary care provider. Update your medication list any time medications or doses are changed and carry your medication list at all times in case of emergency. Electronically Signed By: LANI MARADIAGA MD MPH Signed On:26-DEC-2016 12:14:05 Your Allergies & Intolerances Substance Reaction Symptoms Category Comments penicillins Drug Your Problem List Problem Status Onset Comments Apnea Sleep Obstructive (CARLOS) Active Edema Leg NOS Active Neuropathy Peripheral NOS Active Hypersomnia NOS Active Your Upcoming Appointments Date Time Location Provider 01/15/2017 11:25 [facility] Neurology Lani Maradiaga MD 01/28/2017 14:45 [facility] PM&R Donovan GARZA, Vivek Cid Attention: Contact your local Clinic if further [...] if you dont have one. Go to [email or web address] and click on Create Your Account. Then, follow the directions to complete the online form. Youll be asked for your [facility] number which you can find at the top of this document. Your Goals/Additional instructions: Source: [facility] [place] POWERCHART Document Id: [id number] Miscellaneous - Maxine Maradiaga M.D., M.P.H. - 12/26/2016 12:14 PM CDT Ambulatory Discharge Medication List [address] [id number] Visit Information Name: YAZ CARO [facility] Number: [id number] Current Date: 12/26/2016 12:14:09 Attending Provider: LANI MARADIAGA MD MPH Primary Care Provider: PCP, YAZ [...] 2 Tablet(s), Oral, two times a day doxepin (doxepin 3 mg oral tablet) 1 Tablet(s), Oral, once a day (at bedtime) New Routed to [address] [phone] hydrochlorothiazide-quinapril (hydrochlorothiazide -quinapril 12.5mg- 20mg) 1 Tablet(s), [...] tablet) 1 Tablet(s), Oral, once a day *LORazepam (LORazepam) as needed for Anxiety melatonin (melatonin [...] the Following Medications: Medication list as of 12-26-16 12:14 Attention: If you have any medications at home that are not on this list, DO NOT take them until youcontact your provider for clarification. Give a copy of your medication list to your primary care provider. Update your medication list any time medications or doses are changed and carry your medication list at all times in case of emergency. Electronically Signed By: LANI MARADIAGA MD MPH Signed On:26-DEC-2016 12:14:05 Additional Information: Source: [facility] [place] POWERCHART Document Id: [id number] Miscellaneous - Analy Jung L.PCandyNCandy - 12/26/2016 11:59 AM CDT MRI Screening Questionnaire MRI Screening Questionnaire Entered On: 12/26/2016 12:03 CDT Performed On: 12/26/2016 11:59 CDT by ANALY JUNG LPN MRI Questionnaire Previous MRI, CT, or X-rays Done : No ANALY JUNG LPN - 12/26/2016 11:59 CDT MRI Cannot be Done Grid Artificial heart valve : No Automated Internal Cardiac Defibrillator : No Brain aneurysm clips : No Cochlear implant : No History of pacemaker : No Implants with a magnet : No Internal electrodes/wires : No Neurostimulator/Biostimulator : No [place] devi catheter : No ANALY JUNG LPN - 12/26/2016 11:59 CDT Patient Weight > 350 lbs : No ANALY JUNG LPN - 12/26/2016 11:59 CDT MRI Risk Factors Grid Patient is greater than 69 years old : No Diabetes (document medication) : Yes History of Kidney/Liver Transplant : No History of Renal Disease : No Receiving Dialysis : No ANALY JUNG LPN - 12/26/2016 11:59 CDT Creatinine/GFR Results Completed : No ANALY JUNG LPN 12/26/2016 11:59 CDT MRI Implants, Devices, Conditions Grid Aneurysm clip : No Control Implants (IUD, diaphragm) : No Intravascular Coil, Filter or Stent : No Drug Infusion Pump : No External Pain Control Device : No Intravascular Catheter/Port : No Magnetic/Elec/Mech Activated Implant : No Prosthesis/Metal Implanted Surgical : Yes (Comment: both knees titanium [ANALY JUNG LPN - 12/26/2016 11:59 CDT] ) Metal Fragments in Body : No Bullets/BB's/Shrapnel in Body : No Tattoos/Perm Make-Up/Body Jewelry : No Hearing Aids/Dentures/Partial Plates : No History of cancer : No Eye Surgery/Implant : No Inner Ear Surgery/Implant : No Transdermal Med or EKG Patches : No Shunt : No Penile Implant : No Breast Tissue Automatic Glove Former/Implant : No : No (document number of weeks in Comment) : No Surgery : No ANALY JUNG LPN - 12/26/2016 11:59 CDT Claustrophobic : No Pain/Unable to Lay Still : No Metal In or Removed from Eyes Ever : No Form Completed : Yes Education Materials Provided : No ANALY JUNG LPN 12/26/2016 11:59 CDT Source: [employer] Document Id: [id number] CDT!49 Miscellaneous - Analy Jung L.P.N. - 12/26/2016 11:04 AM CDT CPAP From: ANALY JUNG LPN ([facility] Nurse) Sent: 12/26/2016 11:04:00 CDT Subject: CPAP CPAP machine is from [facility] [place] [phone]. Source: [employer] Document Id: [id number] Miscellbernard - Analy Jung L.PLiss - 12/26/2016 10:42 AM CDT [place] Sleepiness Scale [place] Sleepiness Scale Entered On: 12/26/2016 10:44 CDT Performed On: 12/26/2016 10:42 CDT by ANALY JUNG LPN [place] Sleepiness Scale [place] sitting and reading : Moderate chance of dozing [place] watching TV : Slight chance of dozing [place] sitting in public : Slight chance of dozing [place] passenger in car : High chance of dozing [place] in a car stopped in traffic : Slight chance of dozing [place] Lying down to rest : Moderate chance of dozing [place] sitting and talking : Slight chance of dozing [place] sitting quietly after lunch : Slight chance of dozing [place] Total Score : 12 ANALY JUNG LPN - 12/26/2016 10:42 CDT Source: [employer] Document Id: [id number] CDT!11 Miscellaneous - Analy Jung L.PLiss - 12/26/2016 10:40 AM CDT Adult Dietary Aide Cook Intake/History Adult Dietary Aide Cook Intake/History Entered On: 12/26/2016 10:42 CDT Performed On: 12/26/2016 10:40 CDT by ANALY JUNG LPN Intake Chief Complaint : Recheck Neuropathy improves with use of compound cream. Continues with insomnia Peripheral Pulse Rate : 70 /min Systolic Blood Pressure : 128 mmHg Diastolic Blood Pressure : 60 mmHg NIBP Mean : 83 mmHg BP Location : Left upper extremity Blood Pressure Cuff Size : Large Height : 176 cm(Converted to: 5 ft 9 inch(es), 69 inch(es)) Actual Weight : 115.4 kg(Converted to: 254 lb 7 oz) Weight Source : Standing scale Dosing Weight Clinic : 115.4 kg Clinic BSA : 2.38 Body Mass Index : 37.25 kg/m2 ANALY JUNG LPN - 12/26/2016 10:40 CDT General Info Information Given By : Patient Languages : German Is Patient Female and 13-50 no hysterectomy : No ANALY JUNG LPN - 12/26/2016 10:40 CDT Subjective Pain Symptoms : No ANALY JUNG LPN - 12/26/2016 10:40 CDT Dependent Habits Exposure to Tobacco Smoke : Other: never Smoking Status : Never smoker Tobacco 2A : No Tobacco Use/Currently Using : No Tobacco Use/Last 30 Days : No Tobacco Use/Last 12 months : No ANALY JUNG LPN - 12/26/2016 10:40 CDT Source: [employer] Document Id: [id number] CDT!28 documented in this encounter Plan of Treatment Not on filedocumented as of this encounter Visit Diagnoses Not on filedocumented in this encounter Additional Health Concerns Assessment Noted Time PHQ-9 Depression Total Score: 5 04/29/2016 10:10 AM CS T documented as of this encounter
--- OUTSIDE RECORDS SUMMARY | 2022-01-12 12:38 | XMS_ITS | Encounter Summary ---
:1955 Author Organization [facility] Address [address] [place] [address] Care Team Providers Name Role Phone Unavailable Primary Care Provider Unavailable Encounter Details Date Type Department Care Team Description 08/10/2015 - Hospital Encounter HX [facility]ST PMR PT OT Denny Reddy 08/17/2015 L, P.T. [address] [place] [address] Social History Tobacco Use Types Packs/Day Years [...] or relatives? How often do you attend religious or Never 2021 mandaeism services? Do you belong to any clubs or Yes 12/12/2021 organizations such as religious groups, unions, fraternal or athletic groups, or [...] 1 tablet by 0 04/25/2011 mouth daily. acyclovir (for_ZOVIRAX) Take by mouth as 0 200812/24/2021 200 mg capsule needed. CALCIUM CARBONATE/VITAMIN Take 1 tablet by 0 02/05/201412/18/2021 D3 (CALCIUM WITH VITAMIN mouth 3 (three) D ORAL) times a day. loratadine (for_CLARITIN) Take 1 tablet by 0 09/1512/27/2021 10 mg tablet mouth daily. quinapril-hydroCHLOROthia Take 1 tablet by 0 /2 08/200907/21/2017 zide (for_ACCURETIC) mouth daily. 20-12.5 mg [...]
--- OUTSIDE RECORDS SUMMARY | 2022-01-12 12:38 | XMS_ITS | Encounter Summary ---
:1955 Author Organization [facility] Address [address] [place] [address] Care Team Providers Name Role Phone Unavailable Primary Care Provider Unavailable Encounter Details Date Type Department Care Team Description 09/25/2015 Hospital Encounter HX RST PRC JANINAFEKaye Barbosa, ADULT POLITICAL CARTOONIST, ARTIST SCIENTIFIC, R.N. [address] PRATHER, [place]var[address] [place], [place] [address] (Wo rk) Social History Tobacco Use Types [...] or relatives? How often do you attend amish or Never 2021 synagogue services? Do you belong to any clubs or Yes 12/12/2021 organizations such as amish groups, unions, fraternal or athletic groups, or [...]
--- OUTSIDE RECORDS SUMMARY | 2022-01-12 12:38 | XMS_ITS | Encounter Summary ---
:1955 Author Organization [facility] Address [address] [place] [address] Care Team Providers Name Role Phone Unavailable Primary Care Provider Unavailable Encounter Details Date Type Department Care Team Description 08/28/2015 Hospital Encounter HX [facility] Guido Man M.D. [address] [place] [address], [address] [place] [address] (Wo rk) Social History Tobacco [...] do you attend zoroastrian or Never 2021 mosque services? Do you belong to any clubs or Yes 12/12/2021 organizations such as zoroastrian groups, unions, fraternal or athletic groups, or [...] Sign Reading Time Taken Comments Blood Pressure 122/72 08/28/2015 3:04 PM CDT Pulse - - Temperature - - Respiratory Rate - - Oxygen Saturation - - Inhaled Oxygen Concentration - - Weight 116 kg (255 lb 4.7 oz) 08/28/2015 3:04 PM CDT Height - - Body Mass Index 37.81 08/11/2015 10:46 AM CDT documented in this [...] /2 08/200912/27/2021 10 mg tablet mouth daily. quinapril-hydroCHLOROthia Take 1 tablet by 0 /2 08/200907/21/2017 zide (for_ACCURETIC) mouth daily. 20-12.5 mg per tablet valACYclovir (VALTREX) Take 1 tablet by 0 010 06/23/2020 1000 mg tablet mouth as needed. documented as of this encounter Progress Notes Yobani Man M.D. - 08/28/2015 2:42 PM CDT [id number] CHIEF COMPLAINT/REASON FOR VISIT Follow up low back and right hip pain. HISTORY OF PRESENT ILLNESS Ms. Caro returns today in followup. Since I last saw her, [facility] in [place]. She completed this program August 10. Ms. Caro was fully invested in the program and gave a full effort which is excellent. She was able to give me significant details about the program and things that she learned from the program as well as her interaction with the members of the group. They are establishing a direct messaging site where the members of her group support each other through difficult times which is excellent. Ms. Caro reports that she did have an exacerbation of her lateral hip pain in the [facility] program as she was doing some hip abductor strengthening with [employer]. She again describes pain as located in the right side of the low back that radiates into the right gluteal region and the right lateral hip and can occasionally radiate into the anterior thigh and then lateral leg to the level of the ankle as well. She did have an appointment with a chiropractor this morningand did find the adjustment to be helpful. She denies any focal weakness in her lower extremities, change in her bowel or bladder habits, or fevers or chills. PHYSICAL EXAMINATION GENERAL: Pleasant 60-year-old female in no acute distress. SPINE: -1 global decreased lumbar spine range of motion. There is tenderness to palpation over the right lower lumbar paraspinals as well as diffusely in the right gluteal region, with the most tenderness to palpation in the right greater trochanter bursa region. STRENGTH: All major muscle groups of the bilateral lower extremities have normal and symmetric muscle strength, bulk and tone, except for -1 weakness in the right hip abductors. IMPRESSION/REPORT/PLAN 1. Low back pain. 2. Lumbar spondylosis. 3. Lumbar spinal stenosis. 4. Right greater trochanteric pain syndrome. 5. Fibromyalgia. Ms. Caro had an excellent experience at the [facility] and is carrying forward many of the strategies that she learned during that time which I commended her on. PLAN: 1. I am going to have Ms. Caro continue working with her chiropractor. 2. We did discuss having her involved in an aquatic-based rehab program. Ms. Caro has hadskin eruptions at the warm-water pool, but there is an outdoor pool adjacent to where she lives, where she is going to try to initiate therapy there to see if that does not cause her the skin issues, and I think that would be great. 3. She will also continue the exercises she was shown previously in physical therapy, which she has been very diligent with and I commended her on. She knows to be in contact with me if she does not note improvement with the above-mentioned interventions. Ms. Caro voiced agreement and understanding with this plan. Total time 25 minutes,counseling time greater than 15 minutes. Yobani Man M.D./veena Electronically Signed By: YOBANI MAN MD On: 08/29/2015 05:37 PM Modified by and Electronically Signed by: YOBANI MAN MD On: 08/29/2015 05:37 PM Source: [facility] MHSDOLBEYNONRADSYS Document Id: [id number] documented in this encounter Miscellaneous Notes Miscellaneous - Yobani Man M.D. - 08/28/2015 3:45 PM CDT Ambulatory Patient Summary [address] [id number] Visit Information Name: NICOLASLucianoEL MATTSONINE [facility] Number: [id number] Current Date: 08/28/2015 15:45:27 Physicians Attending Provider: YOBANI MAN MD Primary Care Provider: PCP, ELSEWHERE EL CAROINE has been given the following list of [...] Take Indications/Special Instructions/Comments/Notes for Patient Medication Changes/Routing amitriptyline (amitriptyline 50 mg oral tablet) 1 Tablet(s), Oral, once a day (at bedtime) busPIRone (busPIRone 15 mg oral tablet) 1 Tablet(s), Oral, three times a day calcium-vitamin D (Calcium 600+D) 1 Tablet(s), Oral, three times a day duloxetine (Cymbalta 60 mg oral delayed release capsule) 2 cap, Oral, once a day fluconazole (fluconazole) Oral, once a day hydrochlorothiazide-quinapril (hydrochlorothiazide -quinapril 12.5mg- 20mg) 1 Tablet(s), Oral, once a day levOCARNitine (L-Carnitine) lidocaine topical (Lidoderm 5% topical film) 1 patch(es), Topical, once a day Apply to intact skin and remove patch after a maximum of 12 hr of application within a 24 hr period loratadine (loratadine 10 mg oral tablet) 1 Tablet(s), Oral, once a day multivitamin (multivitamin) omega-3 polyunsaturated fatty acids (omega-3 polyunsaturated fatty acids 1100 mg oral delayed release capsule) 1 Tablet(s), Oral, once a day pregabalin (Lyrica 150 mg oral capsule) 1 cap, Oral, two times a day zolpidem (Ambien) Oral, once a day (at bedtime) Stop Taking the Following Medications: Medication list as of 08-28-15 15:45 Attention: If you have any medications at [...] Electronically Signed By: YOBANI MAN MD Signed On:28-AUG-2015 15:45:00 Your Allergies & Intolerances Substance Reaction Symptoms [...] you dont have one. Go to [email or web address] and click on Create Your Account. Then, follow the directions to complete the online form. Youll be asked for your [facility] number which you can find at the top of this document. Your Goals/Additional instructions: Source: [facility] POWERCHART Document Id: [id number] Miscellaneous - Yobani Man M.D. - 08/28/2015 3:45 PM CDT Ambulatory Discharge Medication List [address] [id number] Visit Information Name: FANTA CARO [facility] Number: [id number] Visit Date: 08/28/2015 15:45:27 Attending Provider: YOBANI MAN MD Primary Care Provider: PCP, FANTA SLOAN has been given the following list of medications: Your Medications It is important to take your medications as directed. Use a pill box or chart to help remind you to take your medications. Please let your doctor or nurse know if you have problems taking your medications. Medication/Strength How to Take Indications/Special Instructions/Comments/Notes for Patient Medication Changes/Routing amitriptyline (amitriptyline 50 mg oral tablet) 1 Tablet(s), Oral, once a day (at bedtime) busPIRone (busPIRone 15 mg oral tablet) 1 Tablet(s), Oral, three times a day calcium-vitamin D (Calcium 600+D) 1 Tablet(s), Oral, three times a day duloxetine (Cymbalta 60 mg oral delayed release capsule) 2 cap, Oral, once a day fluconazole (fluconazole) Oral, once a day hydrochlorothiazide-quinapril (hydrochlorothiazide -quinapril 12.5mg- 20mg) 1 Tablet(s), Oral, once a day levOCARNitine (L-Carnitine) lidocaine topical (Lidoderm 5% topical film) 1 patch(es), Topical, once a day Apply to intact skin and remove patch after a maximum of 12 hr of application within a 24 hr period loratadine (loratadine 10 mg oral tablet) 1 Tablet(s), Oral, once a day multivitamin (multivitamin) omega-3 polyunsaturated fatty acids (omega-3 polyunsaturated fatty acids 1100 mg oral delayed release capsule) 1 Tablet(s), Oral, once a day pregabalin (Lyrica 150 mg oral capsule) 1 cap, Oral, two times a day zolpidem (Ambien) Oral, once a day (at bedtime) Stop Taking the Following Medications: Medication list as of 08-28-15 15:45 Attention: If you have any medications at [...] Electronically Signed By: YOBANI MAN MD Signed On:28-AUG-2015 15:45:00 Additional Information: Source: [facility] POWERCHART Document Id: [id number] Miscellaneous - Wilda Giraldo L.PCandyN. - 08/28/2015 3:04 PM CDT Adult Button Tufter Intake/History Adult Button Tufter Intake/History Entered On: 08/28/2015 15:05 CDT Performed On: 08/28/2015 15:04 CDT by WILDA GIRALDO LPN Intake Systolic Blood Pressure : 122 mmHg Diastolic Blood Pressure : 72 mmHg NIBP Mean : 89 mmHg BP Location : Left upper extremity Blood Pressure Cuff Size : Large Actual Weight : 115.8 kg(Converted to: 255 lb 5 oz) Dosing Weight Clinic : 115.8 kg WILDA GIRALDO LPN - 08/28/2015 15:04 CDT General Info Information Given By : Patient Languages : Ugandan Is Patient Female and 13-50 no hysterectomy : No WILDA GIRALDO LPN - 08/28/2015 15:04 CDT Subjective Pain Symptoms : No WILDA GIRALDO LPN - 08/28/2015 15:04 CDT Dependent Habits Exposure to Tobacco Smoke : Other: never Smoking Status : Never smoker Tobacco 2A : No Tobacco Use/Currently Using : No Tobacco Use/Last 30 Days : No Tobacco Use/Last 12 months : No WILDA GIRALDO LPN - 08/28/2015 15:04 CDT Source: [facility] [employer] Document Id: [id number] CDT!22 documented in this encounter Plan of Treatment Not on filedocumented as of this encounter Visit Diagnoses Not on filedocumented in this encounter Additional Health Concerns Assessment Noted Time PHQ-9 Depression Total Score: 4 08/10/2015 9:06 AM CDT documented as of this encounter
--- OUTSIDE RECORDS SUMMARY | 2022-01-12 12:38 | XMS_ITS | Encounter Summary ---
:[address] [facility] Address [address] [place] [address] Care Team Providers Name Role Phone Unavailable Primary Care Provider Unavailable Encounter Details Date Type Department Care Team Description 08/11/2015 - Hospital Encounter HX RST PAIN REHAB Kaye Fitzpatrick 08/18/2015 PSYCH OP L, CONSTRUCTION MANAGEMENT ASSISTANT, PAYROLL AND BENEFITS COORDINATOR, R. N. [address] PRATHER, Evar[address] [place], [place] [address] (Wo rk) Social History Tobacco Use Types [...] or relatives? How often do you attend mandaen or Never 2021 jew services? Do you belong to any clubs or Yes 12/12/2021 organizations such as mandaen groups, unions, fraternal or athletic groups, or [...] by 0 05/201412/18/2021 D3 (CALCIUM WITH VITAMIN mouth 3 [...]
--- OUTSIDE RECORDS SUMMARY | 2022-01-12 12:38 | XMS_ITS | Encounter Summary ---
:1955 Author Organization [facility] Address [address] [place] [address] Care Team Providers Name Role Phone Unavailable Primary Care Provider Unavailable Encounter Details Date Type Department Care Team Description 08/11/2015 - Hospital Encounter HX RST PMR PT OT Aby Locke, 08/18/2015 O.T.A. Social History Tobacco Use Types Packs/Day Years [...] do you attend spiritism or Never 2021 congregational services? Do you belong to any clubs [...]
--- OUTSIDE RECORDS SUMMARY | 2022-01-12 12:38 | XMS_ITS | Encounter Summary ---
:1955 Author Organization [facility] Address [address] [place] [address] Care Team Providers Name Role Phone Unavailable Primary Care Provider Unavailable Encounter Details Date Type Department Care Team Description 08/10/2015 - Hospital Encounter HX RST PAIN REHAB Kaye Fitzpatrick 08/17/2015 PSYCH OP L, ENVIRONMENTAL SERVICES TECHNICIAN, ATTENDANCE CLERK, R. N. [address] PRATHER, Evar[address] [place], [place] [address] (Wo rk) Social History [...] do you attend mandaeism or Never 2021 druze services? Do you belong to any clubs [...]
--- OUTSIDE RECORDS SUMMARY | 2022-01-12 12:38 | XMS_ITS | Encounter Summary ---
:1955 Author Organization [facility] Address [address] [place] [address] Care Team Providers Name Role Phone Unavailable Primary Care Provider Unavailable Encounter Details Date Type Department Care Team Description 08/09/2015 - Hospital Encounter HX RST PAIN REHAB Kaye Fitzpatrick 08/16/2015 PSYCH OP L, ENTRY LEVEL CHEMIST, SENIOR SECURITY ENGINEER, R. N. [address] PRATHER, Evaristo [address] [place], [place] [address] (Wo rk) Social History [...] do you attend catholic or Never 2021 nondenominational services? Do you [...] by 0 /05/201412/18/2021 D3 (CALCIUM WITH VITAMIN mouth 3 (three) [...] Assessment Noted Time PHQ-9 Depression Total Score: 6 07/20/2015 8:59 AM CDT documented as of this encounter
--- OUTSIDE RECORDS SUMMARY | 2022-01-12 12:38 | XMS_ITS | Encounter Summary ---
:1955 Author Organization [facility] Address [address] [place] [address] Care Team Providers Name Role Phone Unavailable Primary Care Provider Unavailable Encounter Details Date Type Department Care Team Description 08/11/2015 - Hospital Encounter HX RST PAIN REHAB Zuly Frederick , 08/18/2015 PSYCH OP Ph.D., L.P. [address] [place] [address] Social History Tobacco Use Types Packs/Day Years [...] do you attend hinduism or Never 2021 alevism services? Do you belong to any clubs or Yes 12/12/2021 organizations such as hinduism groups, unions, fraternal or athletic groups, or [...]
--- OUTSIDE RECORDS SUMMARY | 2022-01-12 12:38 | XMS_ITS | Encounter Summary ---
:1955 Author Organization [facility] Address [address] [place] [address] Care Team Providers Name Role Phone Unavailable Primary Care Provider Unavailable Encounter Details Date Type Department Care Team Description 08/08/2015 - Hospital Encounter HX RST PAIN REHAB Zuly Frederick , 08/15/2015 PSYCH OP Ph.D., L.P. [address] [place] [address] Social History Tobacco Use Types [...] do you attend rastafari or Never 2021 moravian services? Do you [...]
--- OUTSIDE RECORDS SUMMARY | 2022-01-12 12:38 | XMS_ITS | Encounter Summary ---
:1955 Author Organization [facility] Address [address] [place] [address] Care Team Providers Name Role Phone Unavailable Primary Care Provider Unavailable Encounter Details Date Type Department Care Team Description 08/10/2015 - Hospital Encounter HX RST PAIN REHAB Keaton aHle 08/17/2015 PSYCH OP P, Ph.D., L.P. [address] [place] [phone] Social History Tobacco Use Types Packs/Day Years [...] or relatives? How often do you attend jewish or Never 2021 protestant services? Do you belong to any clubs or Yes 12/12/2021 organizations such as jewish groups, unions, fraternal or athletic groups, or [...]
--- OUTSIDE RECORDS SUMMARY | 2022-01-12 12:38 | XMS_ITS | Encounter Summary ---
:1955 Author Organization [facility] Address [address] [place] [address] Care Team Providers Name Role Phone Unavailable Primary Care Provider Unavailable Encounter Details Date Type Department Care Team Description 08/10/2015 - Hospital Encounter HX RST PAIN REHAB Kaye Fitzpatrick 08/17/2015 PSYCH OP L, ACCOUNTS PAYABLE SPECIALIST, PROSTHODONTIST/OWNER, R. N. [address] PRATHER, Evaristo [address] [place], [place] [address] (Wo rk) Social History [...] do you attend presybeterian or Never 2021 mu-ism services? Do you belong to any clubs [...]
--- OUTSIDE RECORDS SUMMARY | 2022-01-12 12:38 | XMS_ITS | Encounter Summary ---
:1955 Author Organization [facility] Address [address] [place] [address] Care Team Providers Name Role Phone Unavailable Primary Care Provider Unavailable Encounter Details Date Type Department Care Team Description 08/11/2015 - Hospital Encounter HX RST PAIN REHAB Kaye Fitzpatrick 08/18/2015 PSYCH OP L, TRIM STENCIL MAKER, BOARD MIXER TENDER, R. N. [address] PRATHER, Evaristo [address] [place], [place] [address] (Wo rk) Social History [...] do you attend anglican or Never 2021 mormon services? Do you [...] - Inhaled Oxygen Concentration - - Weight 114 kg (251 lb 1.7 oz) 08/11/2015 10:46 AM CDT Height 175 cm (5' 8.9) 08/11/2015 10:46 AM CDT Body Mass Index 37.19 08/11/2015 10:46 AM CDT documented in this [...]
--- OUTSIDE RECORDS SUMMARY | 2022-01-12 12:38 | XMS_ITS | Encounter Summary ---
:1955 Author Organization [facility] Address [address] [place] [address] Care Team Providers Name Role Phone Unavailable Primary Care Provider Unavailable Encounter Details Date Type Department Care Team Description 08/09/2015 - Hospital Encounter HX RST PMR PT OT Anitha Perez, 08/16/2015 O.T.A. Social History Tobacco Use Types Packs/Day [...] do you attend islam or Never 2021 restorationism services? Do you [...]
--- OUTSIDE RECORDS SUMMARY | 2022-01-12 12:38 | XMS_ITS | Encounter Summary ---
:1955 Author Organization [facility] Address [address] [place] [address] Care Team Providers Name Role Phone Unavailable Primary Care Provider Unavailable Encounter Details Date Type Department Care Team Description 08/08/2015 - Hospital Encounter HX RST PAIN REHAB Vipul Kelly, 08/15/2015 PSYCH OP DIRECTOR OF PHYSICIAN PRACTICES, COLLECTION ADMINISTRATOR [address] [place] [address] Social History Tobacco Use Types Packs/Day Years [...] do you attend mandaen or Never 2021 pentecostalism services? Do you [...]
--- OUTSIDE RECORDS SUMMARY | 2022-01-12 12:38 | XMS_ITS | Encounter Summary ---
:1955 Author Organization [facility] Address [address] [place] [address] Care Team Providers Name Role Phone Unavailable Primary Care Provider Unavailable Encounter Details Date Type Department Care Team Description 08/10/2015 - Hospital Encounter HX RST PAIN REHAB Kaye Fitzpatrick 08/17/2015 PSYCH OP L, INTEGRATION SOLUTION ARCHITECT, MARINE STRUCTURAL DESIGNER, R. [address]. [address] PRATHER, Evar[address] [place], [place] [address] (Wo rk) Social History [...] do you attend tenriism or Never 2021 yarsani services? Do you [...]
--- OUTSIDE RECORDS SUMMARY | 2022-01-12 12:38 | XMS_ITS | Encounter Summary ---
:1955 Author Organization [facility] Address [address] [place] [address] Care Team Providers Name Role Phone Unavailable Primary Care Provider Unavailable Encounter Details Date Type Department Care Team Description 08/08/2015 - Hospital Encounter HX RST PMR PT OT Song Steel , 08/15/2015 P.T.A. [address] [place] [address] Social History Tobacco Use Types Packs/Day Years [...] do you attend congregational or Never 2021 confucianist services? Do you [...]
--- OUTSIDE RECORDS SUMMARY | 2022-01-12 12:38 | XMS_ITS | Encounter Summary ---
:1955 Author Organization [facility] Address [address] [place] [address] Care Team Providers Name Role Phone Unavailable Primary Care Provider Unavailable Encounter Details Date Type Department Care Team Description 08/08/2015 - Hospital Encounter HX RST PAIN REHAB Jesse, 08/15/2015 PSYCH OP Colleen Polk M.D., Ph.D. [address] [place] [phone] Social History Tobacco Use Types Packs/Day Years [...] do you attend orthodox or Never 2021 moravian services? Do you [...]
--- OUTSIDE RECORDS SUMMARY | 2022-01-12 12:38 | XMS_ITS | Encounter Summary ---
:1955 Author Organization [facility] Address [address] [place] [address] Care Team Providers Name Role Phone Unavailable Primary Care Provider Unavailable Encounter Details Date Type Department Care Team Description 08/11/2015 - Hospital Encounter HX RST PMR PT OT Clare Clay , 08/18/2015 O.T[address] [facility] [address] [place], [place] [address] (Wo rk) Social History Tobacco Use Types [...] do you attend mormonism or Never 2021 samaritan services? Do you belong to any clubs [...]
--- OUTSIDE RECORDS SUMMARY | 2022-01-12 12:38 | XMS_ITS | Encounter Summary ---
:1955 Author Organization [facility] Address [address] [place] [address] Care Team Providers Name Role Phone Unavailable Primary Care Provider Unavailable Encounter Details Date Type Department Care Team Description 09/25/2015 Hospital Encounter HX RST PAIN REHAB Kaye Fitzpatrick, PSYCH OP BOOK OR SCRIPT EDITOR, ALLIGATOR SHEAR OPERATOR, R.N. [address] PRATHER, Evaristo [address] [place], [place] [address] (Wo rk) Social History Tobacco Use Types [...] do you attend buddhist or Never 2021 gnosticist services? Do you [...]
--- OUTSIDE RECORDS SUMMARY | 2022-01-12 12:38 | XMS_ITS | Encounter Summary ---
:1955 Author Organization [facility] Address [address] [place] [address] Care Team Providers Name Role Phone Unavailable Primary Care Provider Unavailable Encounter Details Date Type Department Care Team Description 08/08/2015 - Hospital Encounter HX RST PMR PT OT Denny Reddy 08/15/2015 L, P.T. [address] [place] [address] Social History Tobacco Use Types Packs/Day Years [...] do you attend zoroastrianism or Never 2021 judaism services? Do you [...]
--- OUTSIDE RECORDS SUMMARY | 2022-01-12 12:38 | XMS_ITS | Encounter Summary ---
:1955 Author Organization [facility] Address [address] [place] [address] Care Team Providers Name Role Phone Unavailable Primary Care Provider Unavailable Encounter Details Date Type Department Care Team Description 08/10/2015 - Hospital Encounter HX RST PAIN REHAB Keaton Hale 08/17/2015 PSYCH OP P, Ph.D., L.P. [address] [place] [phone] Social History Tobacco Use Types Packs/Day Years [...] do you attend christian or Never 2021 yarsanism services? Do you [...]
--- OUTSIDE RECORDS SUMMARY | 2022-01-12 12:38 | XMS_ITS | Encounter Summary ---
:1955 Author Organization [facility] Address [address] [place] [address] Care Team Providers Name Role Phone Unavailable Primary Care Provider Unavailable Encounter Details Date Type Department Care Team Description 08/08/2015 - Hospital Encounter HX RST PMR PT OT Aby Locke, 08/15/2015 O.T.A. Social History Tobacco Use Types Packs/Day [...] do you attend buddhism or Never 2021 lutheran services? Do you [...]
--- OUTSIDE RECORDS SUMMARY | 2022-01-12 12:38 | XMS_ITS | Encounter Summary ---
:1955 Author Organization [facility] Address [address] [place] [address] Care Team Providers Name Role Phone Unavailable Primary Care Provider Unavailable Encounter Details Date Type Department Care Team Description 08/09/2015 - Hospital Encounter HX RST PMR PT OT Song Steel , 08/16/2015 P.T.A. [address] [place] [address] Social History Tobacco Use Types Packs/Day Years [...] or relatives? How often do you attend episcopalian or Never 2021 taoism services? Do you belong to any clubs or Yes 12/12/2021 organizations such as episcopalian groups, unions, fraternal or athletic groups, or [...]
--- OUTSIDE RECORDS SUMMARY | 2022-01-12 12:38 | XMS_ITS | Encounter Summary ---
:1955 Author Organization [facility] Address [address] [place] [address] Care Team Providers Name Role Phone Unavailable Primary Care Provider Unavailable Encounter Details Date Type Department Care Team Description 08/09/2015 - Hospital Encounter HX RST PAIN REHAB Kyae Fitzpatrick 08/16/2015 PSYCH OP L, COSTUME SHOP COORDINATOR, ASSISTANT VICE PRESIDENT, R. N. [address] PRATHER, Evaristo [address] [place], [place] [address] (Wo rk) Social History [...] do you attend mormonism or Never 2021 catholic services? Do you belong to any [...]
--- OUTSIDE RECORDS SUMMARY | 2022-01-12 12:38 | XMS_ITS | Encounter Summary ---
:1955 Author Organization [facility] Address [address] [place] [address] Care Team Providers Name Role Phone Unavailable Primary Care Provider Unavailable Encounter Details Date Type Department Care Team Description 08/09/2015 - Hospital Encounter HX RST PAIN REHAB Zuly Frederick , 08/16/2015 PSYCH OP Ph.D., L.P. [address] [place] [address] Social History Tobacco Use Types [...] do you attend evangelical or Never 2021 alevism services? Do you [...]
--- OUTSIDE RECORDS SUMMARY | 2022-01-12 12:38 | XMS_ITS | Encounter Summary ---
:1955 Author Organization [facility] Address [address] [place] [address] Care Team Providers Name Role Phone Unavailable Primary Care Provider Unavailable Encounter Details Date Type Department Care Team Description 08/11/2015 - Hospital Encounter HX RST PMR PT OT Denny Reddy 08/18/2015 L, P.T. [address] [place] [address] Social History Tobacco Use Types Packs/Day Years [...] do you attend nondenominational or Never 2021 uatsdin services? Do you belong to any clubs or Yes 12/12/2021 organizations such as nondenominational groups, unions, fraternal or athletic groups, or [...]
--- OUTSIDE RECORDS SUMMARY | 2022-01-12 12:38 | XMS_ITS | Encounter Summary ---
:1955 Author Organization [facility] Address [address] [place] [address] Care Team Providers Name Role Phone Unavailable Primary Care Provider Unavailable Encounter Details Date Type Department Care Team Description 08/08/2015 - Hospital Encounter HX RST PAIN REHAB Vipul Kelly, 08/15/2015 PSYCH OP CROSS TIE TRAM LOADER, HIDE EXAMINER [address] [place] [address] Social History Tobacco Use Types Packs/Day Years [...] do you attend yazdanism or Never 2021 buddhist services? Do you [...]
--- OUTSIDE RECORDS SUMMARY | 2022-01-12 12:38 | XMS_ITS | Encounter Summary ---
:1955 Author Organization [facility] Address [address] [place] [address] Care Team Providers Name Role Phone Unavailable Primary Care Provider Unavailable Encounter Details Date Type Department Care Team Description 08/11/2015 - Hospital Encounter HX RST PAIN REHAB Kaye Fitzpatrick 08/18/2015 PSYCH OP L, BENCH TOOL MAKER, CUSTOMER SOLUTIONS TEAMMATE, R. N. [address] PRATHER, Evaristo [address] [place], [place] [address] (Wo rk) Social History [...] do you attend restoration or Never 2021 pentecostal services? Do you belong to any clubs [...]
--- OUTSIDE RECORDS SUMMARY | 2022-01-12 12:38 | XMS_ITS | Encounter Summary ---
:1955 Author Organization [facility] Address [address] [place] [address] Care Team Providers Name Role Phone Unavailable Primary Care Provider Unavailable Encounter Details Date Type Department Care Team Description 08/09/2015 - Hospital Encounter HX RST PAIN REHAB Kaye Fitzpatrick 08/16/2015 PSYCH OP L, PROJECT MANAGER ENTERTAINMENT AND MEDIA, AGENCY OWNER, R. N. [address] PRATHER, Evaristo [address] [place], [place] [address] (Wo rk) Social History [...] do you attend baptism or Never 2021 shinto services? Do you belong to any clubs [...]
--- OUTSIDE RECORDS SUMMARY | 2022-01-12 12:38 | XMS_ITS | Encounter Summary ---
:1955 Author Organization [facility] Address [address] [place] [address] Care Team Providers Name Role Phone Unavailable Primary Care Provider Unavailable Encounter Details Date Type Department Care Team Description 08/09/2015 - Hospital Encounter HX RST PAIN REHAB Vipul Kelly, 08/16/2015 PSYCH OP FACULTY NEUROPSYCHOLOGIST, CELL CLEANER [address] [place] [address] Social History Tobacco Use Types Packs/Day Years [...] do you attend shinto or Never 2021 confucianist services? Do you belong to any clubs or Yes 12/12/2021 organizations such as shinto groups, unions, fraternal or athletic groups, or [...]
--- OUTSIDE RECORDS SUMMARY | 2022-01-12 12:38 | XMS_ITS | Encounter Summary ---
:1955 Author Organization [facility] Address [address] [place] [address] Care Team Providers Name Role Phone Unavailable [...] do you attend jain or Never 2021 zoroastrian services? Do you [...]
[2022-01-12 12:39] LABS: Basophils Percent Auto 0.2 % (0.0-3.0); Eosinophils Percent Auto 0.2 % (0.0-7.0); Hematocrit 48.4 % (33.0-51.0); Hemoglobin* 15.4 gm/dL (12.0-16.0); Immature Granulocytes Abs Auto 0.08 K/uL (0.00-0.30); Lymphocytes Percent Auto 5.4 % (20-44); Mean Corpuscular HGB Conc 32 gm/dL (32-36); Mean Corpuscular Hemoglobin 28 pg (26-34); Mean Corpuscular Volume 88 fL (80-100); Monocytes Percent Auto 3.8 % (0.0-11.0); Neutrophils Percent Auto 90.1 % (42.0-72.0); Platelet Count* 422 K/uL (140-440); Red Blood Count 5.52 m/uL (4.00-5.20); White Blood Count* 23.18 K/uL (4.50-11.00)
--- OUTSIDE RECORDS SUMMARY | 2022-01-12 12:39 | XMS_ITS | Encounter Summary ---
:1955 Author Organization [facility] Address [address] [place] [address] Care Team Providers Name Role Phone Unavailable Primary Care Provider Unavailable Encounter Details Date Type Department Care Team Description 08/01/2015 - Hospital Encounter HX RST PAIN REHAB Kaye Fitzpatrick 08/08/2015 PSYCH OP L, GRAVE CLEANER, DIRECTOR COUNCIL ON AGING, R. N. [address] PRATHER, Evaristo [address] [place], [place] [address] (Wo rk) Social History [...] do you attend baptist or Never 2021 anglican services? Do you [...]
--- OUTSIDE RECORDS SUMMARY | 2022-01-12 12:39 | XMS_ITS | Encounter Summary ---
:1955 Author Organization [facility] Address [address] [place] [address] Care Team Providers Name Role Phone Unavailable Primary Care Provider Unavailable Encounter Details Date Type Department Care Team Description 08/04/2015 - Hospital Encounter HX RST PMR PT OT Song Steel , 08/11/2015 P.T.A. [address] [place] [address] Social History Tobacco Use Types Packs/Day Years [...] or relatives? How often do you attend restorationist or Never 2021 rastafarian services? Do you belong to any clubs or Yes 12/12/2021 organizations such as restorationist groups, unions, fraternal or athletic groups, or [...]
--- OUTSIDE RECORDS SUMMARY | 2022-01-12 12:39 | XMS_ITS | Encounter Summary ---
:1955 Author Organization [facility] Address [address] [place] [address] Care Team Providers Name Role Phone Unavailable Primary Care Provider Unavailable Encounter Details Date Type Department Care Team Description 08/03/2015 - Hospital Encounter HX RST PAIN REHAB Neeta Fitzpatrickzabeth 08/10/2015 PSYCH OP L, CORPORATE TRAVEL COORDINATOR, SPECIALIST PHYSICIAN, R. N. [address] PRATHER, Evaristo [address] [place], [place] [address] (Wo rk) Social History [...] do you attend orthodox or Never 2021 religion services? Do you [...]
--- OUTSIDE RECORDS SUMMARY | 2022-01-12 12:39 | XMS_ITS | Encounter Summary ---
:1955 Author Organization [facility] Address [address] [place] [address] Care Team Providers Name Role Phone Unavailable Primary Care Provider Unavailable Encounter Details Date Type Department Care Team Description 08/01/2015 - Hospital Encounter HX RST PAIN REHAB Jesse, 08/08/2015 PSYCH OP Colleen Polk M.D., Ph.D. [address] [place] [phone] Social History Tobacco Use Types Packs/Day Years [...] do you attend yazdanism or Never 2021 baptist services? Do you belong to any clubs [...]
--- OUTSIDE RECORDS SUMMARY | 2022-01-12 12:39 | XMS_ITS | Encounter Summary ---
:1955 Author Organization [facility] Address [address] [place] [address] Care Team Providers Name Role Phone Unavailable Primary Care Provider Unavailable Encounter Details Date Type Department Care Team Description 07/31/2015 - Hospital Encounter HX RST PAIN REHAB Neeta Fitzpatrickzabeth 08/07/2015 PSYCH OP L, DISCHARGE RN, CLUTCH SPECIALIST, R. N. [address] PRATHER, Evaristo [address] [place], [place] [address] (Wo rk) Social History [...] do you attend mandaeism or Never 2021 orthodox services? Do you [...]
--- OUTSIDE RECORDS SUMMARY | 2022-01-12 12:39 | XMS_ITS | Encounter Summary ---
:1955 Author Organization [facility] Address [address] [place] [address] Care Team Providers Name Role Phone Unavailable Primary Care Provider Unavailable Encounter Details Date Type Department Care Team Description 08/02/2015 - Hospital Encounter HX RST PAIN REHAB Zuly Frederick , 08/09/2015 PSYCH OP Ph.D., L.P. [address] [place] [address] Social History Tobacco Use Types [...] do you attend druze or Never 2021 gnosticism services? Do you belong to any clubs [...]
--- OUTSIDE RECORDS SUMMARY | 2022-01-12 12:39 | XMS_ITS | Encounter Summary ---
:1955 Author Organization [facility] Address [address] [place] [address] Care Team Providers Name Role Phone Unavailable Primary Care Provider Unavailable Encounter Details Date Type Department Care Team Description 08/04/2015 - Hospital Encounter HX RST PAIN REHAB Kaye Fitzpatrick 08/11/2015 PSYCH OP L, SUPERVISOR PERSONNEL CLERKS, AIR CONDITIONING ENGINEER, R. N. [address] PRATHER, Evaristo [address] [place], [place] [address] [...] or relatives? How often do you attend scientologist or Never 2021 muslim services? Do you belong to any clubs or Yes 12/12/2021 organizations such as scientologist groups, unions, fraternal or athletic groups, or [...]
--- OUTSIDE RECORDS SUMMARY | 2022-01-12 12:39 | XMS_ITS | Encounter Summary ---
:1955 Author Organization [facility] Address [address] [place] [address] Care Team Providers Name Role Phone Unavailable Primary Care Provider Unavailable Encounter Details Date Type Department Care Team Description 08/02/2015 - Hospital Encounter HX RST PMR PT OT Aby Locke, 08/09/2015 O.T.A. Social History Tobacco Use Types Packs/Day [...] do you attend anglican or Never 2021 religion services? Do you [...]
--- OUTSIDE RECORDS SUMMARY | 2022-01-12 12:39 | XMS_ITS | Encounter Summary ---
:1955 Author Organization [facility] Address [address] [place] [address] Care Team Providers Name Role Phone Unavailable Primary Care Provider Unavailable Encounter Details Date Type Department Care Team Description 08/01/2015 - Hospital Encounter HX RST PMR PT OT Song Steel , 08/08/2015 P.T.A. [address] [place] [address] Social History Tobacco Use Types Packs/Day Years [...] do you attend jewish or Never 2021 spiritism services? Do you belong to any clubs [...]
--- OUTSIDE RECORDS SUMMARY | 2022-01-12 12:39 | XMS_ITS | Encounter Summary ---
:1955 Author Organization [facility] Address [address] [place] [address] Care Team Providers Name Role Phone Unavailable Primary Care Provider Unavailable Encounter Details Date Type Department Care Team Description 08/04/2015 - Hospital Encounter HX RST PMR PT OT Aby Locke, 08/11/2015 O.T.A. Social History Tobacco Use Types Packs/Day [...] or relatives? How often do you attend restorationism or Never 2021 pentecostalism services? Do you belong to any clubs or Yes 12/12/2021 organizations such as restorationism groups, unions, fraternal or athletic groups, or [...]
--- OUTSIDE RECORDS SUMMARY | 2022-01-12 12:39 | XMS_ITS | Encounter Summary ---
:1955 Author Organization [facility] Address [address] [place] [address] Care Team Providers Name Role Phone Unavailable Primary Care Provider Unavailable Encounter Details Date Type Department Care Team Description 08/04/2015 - Hospital Encounter HX RST PMR PT OT Clare Clay , 08/11/[address] [facility] [address] [place], [place] [address] (Wo rk) Social History [...] do you attend adventist or Never 2021 zoroastrian services? Do you belong to any clubs or Yes 12/12/2021 organizations such as adventist groups, unions, fraternal or athletic groups, or [...]
--- OUTSIDE RECORDS SUMMARY | 2022-01-12 12:39 | XMS_ITS | Encounter Summary ---
:1955 Author Organization [facility] Address [address] [place] [address] Care Team Providers Name Role Phone Unavailable Primary Care Provider Unavailable Encounter Details Date Type Department Care Team Description 08/04/2015 - Hospital Encounter HX RST PAIN REHAB Vipul Kelly, 08/11/2015 PSYCH OP ORACLE DATABASE CONSULTANT, WOOL SACKER [address] [place] [address] Social History Tobacco Use Types Packs/Day Years [...] you attend latter day or Never 2021 restorationism services? Do you [...]
--- OUTSIDE RECORDS SUMMARY | 2022-01-12 12:39 | XMS_ITS | Encounter Summary ---
:1955 Author Organization [facility] Address [address] [place] [address] Care Team Providers Name Role Phone Unavailable Primary Care Provider Unavailable Encounter Details Date Type Department Care Team Description 08/03/2015 - Hospital Encounter HX RST PMR PT OT Angelia Tamayo, 08/10/2015 O.T., BCPR Social History Tobacco Use Types Packs/Day Years [...] do you attend yarsanism or Never 2021 sikh services? Do you [...]
--- OUTSIDE RECORDS SUMMARY | 2022-01-12 12:39 | XMS_ITS | Encounter Summary ---
:1955 Author Organization [facility] Address [address] [place] [address] Care Team Providers Name Role Phone Unavailable Primary Care Provider Unavailable Encounter Details Date Type Department Care Team Description 08/03/2015 - Hospital Encounter HX RST PAIN REHAB Neeta Fitzpatrickzabeth 08/10/2015 PSYCH OP L, QUARTER TRIMMER, HOLLOW WARE MAKER, R. N. [address] PRATHER, Evaristo [address] [place], [place] [address] (Wo rk) Social History [...] or relatives? How often do you attend congregation or Never 2021 muslim services? Do you belong to any clubs or Yes 12/12/2021 organizations such as congregation groups, unions, fraternal or athletic groups, or [...]
--- OUTSIDE RECORDS SUMMARY | 2022-01-12 12:39 | XMS_ITS | Encounter Summary ---
:1955 Author Organization [facility] Address [address] [place] [address] Care Team Providers Name Role Phone Unavailable Primary Care Provider Unavailable Encounter Details Date Type Department Care Team Description 08/03/2015 - Hospital Encounter HX RST PMR PT OT Rona Zamudio , 08/10/2015 P.T. [address] [place] [address] Social History Tobacco Use Types Packs/Day Years [...] do you attend catholic or Never 2021 yarsanism services? Do you [...]
--- OUTSIDE RECORDS SUMMARY | 2022-01-12 12:39 | XMS_ITS | Encounter Summary ---
:1955 Author Organization [facility] Address [address] [place] [address] Care Team Providers Name Role Phone Unavailable Primary Care Provider Unavailable Encounter Details Date Type Department Care Team Description 08/01/2015 - Hospital Encounter HX RST PAIN REHAB Keaton Hale 08/08/2015 PSYCH OP P, Ph.D., L.P. [address] [place] [phone] Social History Tobacco Use Types Packs/Day Years [...] do you attend moravian or Never 2021 zoroastrianism services? Do you [...]
--- OUTSIDE RECORDS SUMMARY | 2022-01-12 12:39 | XMS_ITS | Encounter Summary ---
:1955 Author Organization [facility] Address [address] [place] [address] Care Team Providers Name Role Phone Unavailable Primary Care Provider Unavailable Encounter Details Date Type Department Care Team Description 08/01/2015 - Hospital Encounter HX RST PAIN REHAB Kaye Fitzpatrick 08/08/2015 PSYCH OP L, HOT METAL CRANE OPERATOR, INDUSTRIAL ELECTRICIAN JOURNEYMAN, R. N. [address] PRATHER, Evaristo [address] [place], [place] [address] (Wo rk) Social History [...] do you attend jew or Never 2021 christianity services? Do you belong to any clubs [...]
--- OUTSIDE RECORDS SUMMARY | 2022-01-12 12:39 | XMS_ITS | Encounter Summary ---
:1955 Author Organization [facility] Address [address] [place] [address] Care Team Providers Name Role Phone Unavailable Primary Care Provider Unavailable Encounter Details Date Type Department Care Team Description 08/03/2015 - Hospital Encounter HX RST PAIN REHAB Neeta Fitzpatrickzabeth 08/10/2015 PSYCH OP L, BEADING MACHINE OPERATOR, AIRPLANE CAPTAIN, R. N. [address] PRATHER, Evaristo [address] [place], [place] [address] (Wo rk) Social History [...] do you attend spiritism or Never 2021 mosque services? Do you [...]
--- OUTSIDE RECORDS SUMMARY | 2022-01-12 12:39 | XMS_ITS | Encounter Summary ---
:1955 Author Organization [facility] Address [address] [place] [address] Care Team Providers Name Role Phone Unavailable Primary Care Provider Unavailable Encounter Details Date Type Department Care Team Description 08/08/2015 - Hospital Encounter HX RST PAIN REHAB Indy Ramos, 08/15/2015 PSYCH OP BOX TOE CUTTER, INTERIOR PANELER, D.N.P., M.S.N. [address] [place] [phone] Social History Tobacco Use Types Packs/Day Years [...] do you attend anabaptism or Never 2021 confucianism services? Do you [...]
--- OUTSIDE RECORDS SUMMARY | 2022-01-12 12:39 | XMS_ITS | Encounter Summary ---
:1955 Author Organization [facility] Address [address] [place] [address] Care Team Providers Name Role Phone Unavailable Primary Care Provider Unavailable Encounter Details Date Type Department Care Team Description 08/03/2015 - Hospital Encounter HX RST PAIN REHAB Keaton Hael 08/10/2015 PSYCH OP P, Ph.D., L.P. [address] [place] [phone] Social History Tobacco Use Types Packs/Day Years [...] do you attend zoroastrian or Never 2021 methodist services? Do you [...]
--- OUTSIDE RECORDS SUMMARY | 2022-01-12 12:39 | XMS_ITS | Encounter Summary ---
:1955 Author Organization [facility] Address [address] [place] [address] Care Team Providers Name Role Phone Unavailable Primary Care Provider Unavailable Encounter Details Date Type Department Care Team Description 08/04/2015 - Hospital Encounter HX RST PAIN REHAB Kaye Fitzpatrick 08/11/2015 PSYCH OP L, CONTINUOUS IMPROVEMENT SPECIALIST, PRISON OFFICER, R. N. [address] PRATHER, Evaristo [address] [place], [place] [address] (Wo rk) Social [...] you attend roman catholic or Never 2021 scientologist services? Do you [...]
--- OUTSIDE RECORDS SUMMARY | 2022-01-12 12:39 | XMS_ITS | Encounter Summary ---
:1955 Author Organization [facility] Address [address] [place] [address] Care Team Providers Name Role Phone Unavailable Primary Care Provider Unavailable Encounter Details Date Type Department Care Team Description 08/01/2015 - Hospital Encounter HX RST PAIN REHAB Kaye Fitzpatrick 08/08/2015 PSYCH OP L, CABINETMAKER HELPER, BELTING CUTTER, R. N. [address] PRATHER, Evaristo [address] [place], [place] [address] (Wo rk) Social History [...] do you attend mormon or Never 2021 temple services? Do you [...]
--- OUTSIDE RECORDS SUMMARY | 2022-01-12 12:39 | XMS_ITS | Encounter Summary ---
:1955 Author Organization [facility] Address [address] [place] [address] Care Team Providers Name Role Phone Unavailable Primary Care Provider Unavailable Encounter Details Date Type Department Care Team Description 08/02/2015 - Hospital Encounter HX RST PAIN REHAB Kaye Fitzpatrick 08/09/2015 PSYCH OP L, TIRE BLADDER MAKER, WATER SYSTEMS DESIGNER, R. N. [address] PRATHER, Evaristo [address] [place], [place] [address] (Wo rk) Social History [...] do you attend baptist or Never 2021 presybeterian services? Do you belong to any clubs [...]
--- OUTSIDE RECORDS SUMMARY | 2022-01-12 12:39 | XMS_ITS | Encounter Summary ---
:1955 Author Organization [facility] Address [address] [place] [address] Care Team Providers Name Role Phone Unavailable Primary Care Provider Unavailable Encounter Details Date Type Department Care Team Description 08/03/2015 - Hospital Encounter HX RST PAIN REHAB Antonio Castro 08/10/2015 PSYCH OP J, Ph.D., L.P. [address] [place] [phone] Social History Tobacco Use Types Packs/Day Years [...] do you attend latter-day or Never 2021 taoism services? Do you [...]
--- OUTSIDE RECORDS SUMMARY | 2022-01-12 12:39 | XMS_ITS | Encounter Summary ---
:1955 Author Organization [facility] Address [address] [place] [address] Care Team Providers Name Role Phone Unavailable Primary Care Provider Unavailable Encounter Details Date Type Department Care Team Description 08/02/2015 - Hospital Encounter HX RST PAIN REHAB Kaye Fitzpatrick 08/09/2015 PSYCH OP L, MOLD COOLER, MAPLE PRODUCTS SUPERVISOR, R. N. [address] [facility] PRATHER, Evaristo [address] [place], [place] [address] (Wo rk) Social History [...] do you attend bahai or Never 2021 tenriism services? Do you belong to any clubs [...]
--- OUTSIDE RECORDS SUMMARY | 2022-01-12 12:39 | XMS_ITS | Encounter Summary ---
:1955 Author Organization [facility] Address [address] [place] [address] Care Team Providers Name Role Phone Unavailable Primary Care Provider Unavailable Encounter Details Date Type Department Care Team Description 08/02/2015 - Hospital Encounter HX RST PAIN REHAB Kaye Fitzpatrick 08/09/2015 PSYCH OP L, POLISHER DIAL, INVOICE MACHINE OPERATOR, R. N. [address] PRATHER, Evaristo [address] [place], [place] [address] (Wo rk) Social History [...] do you attend jewish or Never 2021 hindu services? Do you belong to any clubs [...]
--- OUTSIDE RECORDS SUMMARY | 2022-01-12 12:39 | XMS_ITS | Encounter Summary ---
:1955 Author Organization [facility] Address [address] [place] [address] Care Team Providers Name Role Phone Unavailable Primary Care Provider Unavailable Encounter Details Date Type Department Care Team Description 08/01/2015 - Hospital Encounter HX RST PMR PT OT Aby Locke, 08/08/2015 O.T.A. Social History Tobacco Use Types Packs/Day [...] do you attend pentecostal or Never 2021 bahai services? Do you [...]
--- OUTSIDE RECORDS SUMMARY | 2022-01-12 12:39 | XMS_ITS | Encounter Summary ---
:1955 Author Organization [facility] Address [address] [place] [address] Care Team Providers Name Role Phone Unavailable Primary Care Provider Unavailable Encounter Details Date Type Department Care Team Description 08/02/2015 - Hospital Encounter HX RST PMR PT OT Denny Reddy 08/09/2015 L, P.T. [address] [place] [address] Social History Tobacco Use Types Packs/Day Years [...] do you attend quaker or Never 2021 tenriism services? Do you [...]
--- OUTSIDE RECORDS SUMMARY | 2022-01-12 12:39 | XMS_ITS | Encounter Summary ---
:1955 Author Organization [facility] Address [address] [place] [address] Care Team Providers Name Role Phone Unavailable Primary Care Provider Unavailable Encounter Details Date Type Department Care Team Description 08/02/2015 - Hospital Encounter HX RST PAIN REHAB Keaton Hale 08/09/2015 PSYCH OP P, Ph.D., L.P. [address] [place] [phone] Social History Tobacco Use Types Packs/Day Years [...] do you attend mu-ism or Never 2021 lutheran services? Do you [...]
--- OUTSIDE RECORDS SUMMARY | 2022-01-12 12:39 | XMS_ITS | Encounter Summary ---
:1955 Author Organization [facility] Address [address] [place] [address] Care Team Providers Name Role Phone Unavailable Primary Care Provider Unavailable Encounter Details Date Type Department Care Team Description 08/04/2015 - Hospital Encounter HX RST PAIN REHAB Antonio Castro 08/11/2015 PSYCH OP J, Ph.D., L.P. [address] [place] [phone] Social History Tobacco Use Types Packs/Day [...] do you attend restorationist or Never 2021 mormon services? Do you [...]
--- OUTSIDE RECORDS SUMMARY | 2022-01-12 12:40 | XMS_ITS | Encounter Summary ---
:1955 Author Organization [facility] Address [address] [place] [address] Care Team Providers Name Role Phone Unavailable Primary Care Provider Unavailable Encounter Details Date Type Department Care Team Description 07/27/2015 - Hospital Encounter HX RST PAIN REHAB Zuly Frederick , 08/03/2015 PSYCH OP Ph.D., L.P. [address] [place] [address] Social History Tobacco Use Types [...] do you attend yarsani or Never 2021 gnosticist services? Do you [...]
--- OUTSIDE RECORDS SUMMARY | 2022-01-12 12:40 | XMS_ITS | Encounter Summary ---
:1955 Author Organization [facility] Address [address] [place] [address] Care Team Providers Name Role Phone Unavailable Primary Care Provider Unavailable Encounter Details Date Type Department Care Team Description 07/27/2015 - Hospital Encounter HX RST PMR PT OT Anitha Perez, 08/03/2015 O.T.A. Social History Tobacco Use Types Packs/Day [...] do you attend nondenominational or Never 2021 yazidism services? Do you [...]
--- OUTSIDE RECORDS SUMMARY | 2022-01-12 12:40 | XMS_ITS | Encounter Summary ---
:1955 Author Organization [facility] Address [address] [place] [address] Care Team Providers Name Role Phone Unavailable Primary Care Provider Unavailable Encounter Details Date Type Department Care Team Description 07/25/2015 - Hospital Encounter HX RST PAIN REHAB Indy Ramos, 08/01/2015 PSYCH OP HOTEL STAFF MEMBER, SEAT JOINER, D.N.P., M.S.N. [address] [place] [phone] Social History Tobacco Use Types Packs/Day Years [...] do you attend samaritan or Never 2021 rastafari services? Do you belong to any clubs [...]
--- OUTSIDE RECORDS SUMMARY | 2022-01-12 12:40 | XMS_ITS | Encounter Summary ---
:1955 Author Organization [facility] Address [address] [place] [address] Care Team Providers Name Role Phone Unavailable Primary Care Provider Unavailable Encounter Details Date Type Department Care Team Description 07/31/2015 - Hospital Encounter HX RST PMR PT OT Denny Reddy 08/07/2015 L, P.T. [address] [place] [address] Social History Tobacco Use Types Packs/Day Years [...] do you attend shinto or Never 2021 uatsdin services? Do you [...]
--- OUTSIDE RECORDS SUMMARY | 2022-01-12 12:40 | XMS_ITS | Encounter Summary ---
:1955 Author Organization [facility] Address [address] [place] [address] Care Team Providers Name Role Phone Unavailable Primary Care Provider Unavailable Encounter Details Date Type Department Care Team Description 07/27/2015 - Hospital Encounter HX RST PAIN REHAB Vipul Kelly, 08/03/2015 PSYCH OP OBSTETRIC ANAESTHETIST, GYPSUM ROOFER [address] [place] [address] Social History Tobacco Use Types Packs/Day Years [...] or relatives? How often do you attend temple or Never 2021 amish services? Do you belong to any clubs or Yes 12/12/2021 organizations such as temple groups, unions, fraternal or athletic groups, or [...]
--- OUTSIDE RECORDS SUMMARY | 2022-01-12 12:40 | XMS_ITS | Encounter Summary ---
:1955 Author Organization [facility] Address [address] [place] [address] Care Team Providers Name Role Phone Unavailable Primary Care Provider Unavailable Encounter Details Date Type Department Care Team Description 07/28/2015 - Hospital Encounter HX RST PAIN REHAB Keaton Hale 08/04/2015 PSYCH OP P, Ph.D., L.P. [address] [place] [phone] Social History Tobacco Use Types Packs/Day Years [...] do you attend hinduism or Never 2021 islam services? Do you [...]
--- OUTSIDE RECORDS SUMMARY | 2022-01-12 12:40 | XMS_ITS | Encounter Summary ---
:1955 Author Organization [facility] Address [address] [place] [address] Care Team Providers Name Role Phone Unavailable Primary Care Provider Unavailable Encounter Details Date Type Department Care Team Description 07/28/2015 - Hospital Encounter HX RST PAIN REHAB Antonio Castro 08/04/2015 PSYCH OP J, Ph.D., L.P. [address] [place] [phone] Social History Tobacco Use Types Packs/Day Years [...] do you attend pentecostalism or Never 2021 shinto services? Do you [...]
--- OUTSIDE RECORDS SUMMARY | 2022-01-12 12:40 | XMS_ITS | Encounter Summary ---
:1955 Author Organization [facility] Address [address] [place] [address] Care Team Providers Name Role Phone Unavailable Primary Care Provider Unavailable Encounter Details Date Type Department Care Team Description 07/28/2015 - Hospital Encounter HX RST PMR PT OT Anitha Perez, 08/04/2015 O.T.A. Social History Tobacco Use Types Packs/Day [...] do you attend scientologist or Never 2021 zoroastrian services? Do you [...]
--- OUTSIDE RECORDS SUMMARY | 2022-01-12 12:40 | XMS_ITS | Encounter Summary ---
:1955 Author Organization [facility] Address [address] [place] [address] Care Team Providers Name Role Phone Unavailable Primary Care Provider Unavailable Encounter Details Date Type Department Care Team Description 07/26/2015 - Hospital Encounter HX RST PAIN REHAB Keaton Hale 08/02/2015 PSYCH OP P, Ph.D., L.P. [address] [place] [phone] Social History Tobacco Use Types Packs/Day Years [...] do you attend nondenominational or Never 2021 catholic services? Do you [...]
--- OUTSIDE RECORDS SUMMARY | 2022-01-12 12:40 | XMS_ITS | Encounter Summary ---
:1955 Author Organization [facility] Address [address] [place] [address] Care Team Providers Name Role Phone Unavailable Primary Care Provider Unavailable Encounter Details Date Type Department Care Team Description 07/26/2015 - Hospital Encounter HX RST PMR PT OT Rona Zamudio , 08/02/2015 P.T. [address] [place] [address] Social History Tobacco Use Types Packs/Day Years [...] do you attend alevism or Never 2021 denominational services? Do you [...]
--- OUTSIDE RECORDS SUMMARY | 2022-01-12 12:40 | XMS_ITS | Encounter Summary ---
:1955 Author Organization [facility] Address [address] [place] [address] Care Team Providers Name Role Phone Unavailable Primary Care Provider Unavailable Encounter Details Date Type Department Care Team Description 07/25/2015 - Hospital Encounter HX RST PAIN REHAB Indy Ramos, 08/01/2015 PSYCH OP PUTTY GLAZER, SIMULATION ANALYST, D.N.P., M.S.N. [address] [place] [phone] Social History Tobacco Use Types Packs/Day Years [...] do you attend judaism or Never 2021 amish services? Do you [...]
--- OUTSIDE RECORDS SUMMARY | 2022-01-12 12:40 | XMS_ITS | Encounter Summary ---
:1955 Author Organization [facility] Address [address] [place] [address] Care Team Providers Name Role Phone Unavailable Primary Care Provider Unavailable Encounter Details Date Type Department Care Team Description 07/25/2015 - Hospital Encounter HX RST PAIN REHAB Jesse, 08/01/2015 PSYCH OP Colleen Polk M.D., Ph.D. [address] [place] [phone] Social History Tobacco Use Types Packs/Day Years [...] do you attend mandaeism or Never 2021 holiness services? Do you [...]
--- OUTSIDE RECORDS SUMMARY | 2022-01-12 12:40 | XMS_ITS | Encounter Summary ---
:1955 Author Organization [facility] Address [address] [place] [address] Care Team Providers Name Role Phone Unavailable Primary Care Provider Unavailable Encounter Details Date Type Department Care Team Description 07/27/2015 - Hospital Encounter HX RST PAIN REHAB Antonio Castro 08/03/2015 PSYCH OP J, Ph.D., L.P. [address] [place] [address] [phone] Social History Tobacco Use Types Packs/Day Years [...] do you attend sikh or Never 2021 orthodox services? Do you [...]
--- OUTSIDE RECORDS SUMMARY | 2022-01-12 12:40 | XMS_ITS | Encounter Summary ---
:1955 Author Organization [facility] Address [address] [place] [address] Care Team Providers Name Role Phone Unavailable Primary Care Provider Unavailable Encounter Details Date Type Department Care Team Description 07/27/2015 - Hospital Encounter HX RST PAIN REHAB Kaye Fitzpatrick 08/03/2015 PSYCH OP L, COMMUNITY RELATIONS SPECIALIST, RELAY TELEGRAPHER, R. N. [address] PRATHER, Evaristo [address] [place], [place] [address] (Wo rk) Social History [...] do you attend sikh or Never 2021 sikhism services? Do you [...]
--- OUTSIDE RECORDS SUMMARY | 2022-01-12 12:40 | XMS_ITS | Encounter Summary ---
:1955 Author Organization [facility] Address [address] [place] [address] Care Team Providers Name Role Phone Unavailable Primary Care Provider Unavailable Encounter Details Date Type Department Care Team Description 07/31/2015 - Hospital Encounter HX RST PAIN REHAB Neeta Fitzpatrickzabeth 08/07/2015 PSYCH OP L, BEEF GRINDER, SENIOR ONLINE MARKETING MANAGER, R. N. [address] PRATHER, Evaristo [address] [place], [place] [address] (Wo rk) Social History [...] do you attend orthodoxy or Never 2021 scientology services? Do you [...]
--- OUTSIDE RECORDS SUMMARY | 2022-01-12 12:40 | XMS_ITS | Encounter Summary ---
:1955 Author Organization [facility] Address [address] [place] [address] Care Team Providers Name Role Phone Unavailable Primary Care Provider Unavailable Encounter Details Date Type Department Care Team Description 07/28/2015 - Hospital Encounter HX RST PAIN REHAB Antonio Castro 08/04/2015 PSYCH OP J, Ph.D., L.P. [address] [place] [phone] Social History Tobacco Use Types Packs/Day Years [...] do you attend christianity or Never 2021 religion services? Do you [...] Sign Reading Time Taken Comments Blood Pressure 134/60 07/31/2015 9:00 AM CDT Pulse 78 07/31/2015 9:00 AM CDT Temperature - - Respiratory Rate [...]
--- OUTSIDE RECORDS SUMMARY | 2022-01-12 12:40 | XMS_ITS | Encounter Summary ---
:1955 Author Organization [facility] Address [address] [place] [address] Care Team Providers Name Role Phone Unavailable Primary Care Provider Unavailable Encounter Details Date Type Department Care Team Description 07/27/2015 - Hospital Encounter HX RST PAIN REHAB Vipul Kelly, 08/03/2015 PSYCH OP DIP UNIT OPERATOR, JAVA DEVELOPER ARCHITECT [address] [place] [address] Social History Tobacco Use Types Packs/Day Years [...] or relatives? How often do you attend sabianism or Never 2021 pentecostal services? Do you belong to any clubs or Yes 12/12/2021 organizations such as sabianism groups, unions, fraternal or athletic groups, or [...]
--- OUTSIDE RECORDS SUMMARY | 2022-01-12 12:40 | XMS_ITS | Encounter Summary ---
:1955 Author Organization [facility] Address [address] [place] [address] Care Team Providers Name Role Phone Unavailable Primary Care Provider Unavailable Encounter Details Date Type Department Care Team Description 07/26/2015 - Hospital Encounter HX RST PAIN REHAB Vipul Kelly, 08/02/2015 PSYCH OP CLUB MANAGER, PROJECT CONTROLS SPECIALIST [address] [place] [address] Social History Tobacco Use Types Packs/Day Years [...] do you attend mandaen or Never 2021 jewish services? Do you [...]
--- OUTSIDE RECORDS SUMMARY | 2022-01-12 12:40 | XMS_ITS | Encounter Summary ---
:1955 Author Organization [facility] Address [address] [place] [address] Care Team Providers Name Role Phone Unavailable Primary Care Provider Unavailable Encounter Details Date Type Department Care Team Description 07/26/2015 - Hospital Encounter HX RST PAIN REHAB Kaye Fitzpatrick 08/02/2015 PSYCH OP L, GARBAGE TRUCK DRIVER, TICKET SPECULATOR, R. N. [address] PRATHER, Evaristo [address] [place], [place] [address] (Wo rk) Social History [...] do you attend anabaptism or Never 2021 scientologist services? Do you [...]
--- OUTSIDE RECORDS SUMMARY | 2022-01-12 12:40 | XMS_ITS | Encounter Summary ---
:1955 Author Organization [facility] Address [address] [place] [address] Care Team Providers Name Role Phone Unavailable Primary Care Provider Unavailable Encounter Details Date Type Department Care Team Description 07/26/2015 - Hospital Encounter HX RST PAIN REHAB Vipul Kelly, 08/02/2015 PSYCH OP NETWORK PROFESSIONAL, DEFENSIVE DRIVING INSTRUCTOR [address] [place] [address] Social History Tobacco Use Types Packs/Day Years [...] do you attend sikh or Never 2021 nondenominational services? Do you [...]
--- OUTSIDE RECORDS SUMMARY | 2022-01-12 12:40 | XMS_ITS | Encounter Summary ---
:1955 Author Organization [facility] Address [address] [place] [address] Care Team Providers Name Role Phone Unavailable Primary Care Provider Unavailable Encounter Details Date Type Department Care Team Description 07/31/2015 - Hospital Encounter HX RST PAIN REHAB Neeta Fitzpatrickzabeth 08/07/2015 PSYCH OP L, DIRECTOR OF FOOD AND NUTRITION SERVICES, CASING MAN, R. N. [address] PRATHER, Evaristo [address] [place], [place] [address] (Wo rk) Social History [...] or relatives? How often do you attend jainism or Never 2021 orthodox services? Do you belong to any clubs or Yes 12/12/2021 organizations such as jainism groups, unions, fraternal or athletic groups, or [...]
--- OUTSIDE RECORDS SUMMARY | 2022-01-12 12:40 | XMS_ITS | Encounter Summary ---
:1955 Author Organization [facility] Address [address] [place] [address] Care Team Providers Name Role Phone Unavailable Primary Care Provider Unavailable Encounter Details Date Type Department Care Team Description 07/25/2015 - Hospital Encounter HX RST PMR PT OT Hamilton Oquendo ie 08/01/2015 N, O.T. [address] [place] [address] (Wo rk) Social History Tobacco Use Types [...] do you attend judaism or Never 2021 congregation services? Do you [...]
--- OUTSIDE RECORDS SUMMARY | 2022-01-12 12:40 | XMS_ITS | Encounter Summary ---
:1955 Author Organization [facility] Address [address] [place] [address] Care Team Providers Name Role Phone Unavailable Primary Care Provider Unavailable Encounter Details Date Type Department Care Team Description 07/28/2015 - Hospital Encounter HX RST PMR PT OT Denny Reddy 08/04/2015 L, P.T. [address] [place] [address] Social History Tobacco Use Types Packs/Day Years [...] do you attend tenriism or Never 2021 confucianism services? Do you [...]
--- OUTSIDE RECORDS SUMMARY | 2022-01-12 12:40 | XMS_ITS | Encounter Summary ---
:1955 Author Organization [facility] Address [address] [place] [address] Care Team Providers Name Role Phone Unavailable Primary Care Provider Unavailable Encounter Details Date Type Department Care Team Description 07/27/2015 - Hospital Encounter HX RST PAIN REHAB Zuly Frederick , 08/03/2015 PSYCH OP Ph.D., L.P. [address] [place] [address] Social History Tobacco Use Types [...] do you attend restorationism or Never 2021 buddhist services? Do you [...] Sign Reading Time Taken Comments Blood Pressure 134/72 07/27/2015 12:17 PM CDT Pulse 74 07/27/2015 12:17 PM CDT Temperature - - Respiratory Rate [...] daily. quinapril-hydroCHLOROthia Take 1 tablet by 0 07/2 08/200907/21/2017 zide (for_ACCURETIC) mouth daily. 20-12.5 mg [...]
--- OUTSIDE RECORDS SUMMARY | 2022-01-12 12:40 | XMS_ITS | Encounter Summary ---
:1955 Author Organization [facility] Address [address] [place] [address] Care Team Providers Name Role Phone Unavailable Primary Care Provider Unavailable Encounter Details Date Type Department Care Team Description 08/03/2015 Hospital Encounter HX RST FIBROMYALGIA Margarette Robertson, ALES[place], C.N.P., D.N.P., M.S. [address] [place] [phone] (Wo rk) Social History Tobacco Use Types [...] do you attend baptist or Never 2021 roman catholic services? Do [...]
--- OUTSIDE RECORDS SUMMARY | 2022-01-12 12:40 | XMS_ITS | Encounter Summary ---
:1955 Author Organization [facility] Address [address] [place] [address] Care Team Providers Name Role Phone Unavailable Primary Care Provider Unavailable Encounter Details Date Type Department Care Team Description 07/31/2015 - Hospital Encounter HX RST PAIN REHAB Keaton Hale 08/07/2015 PSYCH OP P, Ph.D., L.P. [address] [place] [phone] Social History Tobacco Use Types Packs/Day Years [...] you attend roman catholic or Never 2021 rastafarian services? Do you [...]
--- OUTSIDE RECORDS SUMMARY | 2022-01-12 12:40 | XMS_ITS | Encounter Summary ---
:1955 Author Organization [facility] Address [address] [place] [address] Care Team Providers Name Role Phone Unavailable Primary Care Provider Unavailable Encounter Details Date Type Department Care Team Description 07/27/2015 - Hospital Encounter HX RST PMR PT OT Rona Zamudio , 08/03/2015 P.T. [address] [place] [address] Social History Tobacco Use Types Packs/Day Years [...] do you attend congregational or Never 2021 mandaen services? Do you [...] Sign Reading Time Taken Comments Blood Pressure 136/66 07/28/2015 10:24 AM CDT Pulse 74 07/28/2015 10:24 AM CDT Temperature - - Respiratory Rate [...]
--- OUTSIDE RECORDS SUMMARY | 2022-01-12 12:40 | XMS_ITS | Encounter Summary ---
:1955 Author Organization [facility] Address [address] [place] [address] Care Team Providers Name Role Phone Unavailable Primary Care Provider Unavailable Encounter Details Date Type Department Care Team Description 07/31/2015 - Hospital Encounter HX RST PAIN REHAB Keaton Hale 08/07/2015 PSYCH OP P, Ph.D., L.P. [address] [place] [phone] Social History Tobacco Use Types Packs/Day Years [...] do you attend christian or Never 2021 congregation services? Do you [...]
--- OUTSIDE RECORDS SUMMARY | 2022-01-12 12:40 | XMS_ITS | Encounter Summary ---
:1955 Author Organization [facility] Address [address] [place] [address] Care Team Providers Name Role Phone Unavailable Primary Care Provider Unavailable Encounter Details Date Type Department Care Team Description 07/26/2015 - Hospital Encounter HX RST PAIN REHAB Keaton Hale 08/02/2015 PSYCH OP P, Ph.D., L.P. [address] [place] [phone] Social History Tobacco Use Types Packs/Day Years [...] do you attend mandaeism or Never 2021 roman catholic services? Do [...]
--- OUTSIDE RECORDS SUMMARY | 2022-01-12 12:40 | XMS_ITS | Encounter Summary ---
:1955 Author Organization [facility] Address [address] [place] [address] Care Team Providers Name Role Phone Unavailable Primary Care Provider Unavailable Encounter Details Date Type Department Care Team Description 07/31/2015 - Hospital Encounter HX RST PMR PT OT Jones Hernandez, 08/07/2015 O.T. [address] [place] [address] Social History Tobacco Use Types Packs/Day Years [...] do you attend religion or Never 2021 church services? Do you belong to any clubs [...]
--- OUTSIDE RECORDS SUMMARY | 2022-01-12 12:40 | XMS_ITS | Encounter Summary ---
:1955 Author Organization [facility] Address [address] [place] [address] Care Team Providers Name Role Phone Unavailable Primary Care Provider Unavailable Encounter Details Date Type Department Care Team Description 07/28/2015 - Hospital Encounter HX RST PAIN REHAB Kaye Fitzpatrick 08/04/2015 PSYCH OP L, FRONT LINE LEADER, PERSONAL PROPERTY ASSESSOR, R. N. [address] PRATHER, Evaristo [address] [place], [place] [address] (Wo rk) Social History [...] do you attend hinduism or Never 2021 taoist services? Do you [...]
--- OUTSIDE RECORDS SUMMARY | 2022-01-12 12:41 | XMS_ITS | Encounter Summary ---
:1955 Author Organization [facility] Address [address] [place] [address] Care Team Providers Name Role Phone Unavailable Primary Care Provider Unavailable Encounter Details Date Type Department Care Team Description 07/24/2015 - Hospital Encounter HX RST PAIN REHAB Vipul Kelly, 07/31/2015 PSYCH OP PRINT DEVELOPER AUTOMATIC, MISSILE AND MISSILE CHECKOUT TECHNICIAN [address] [place] [address] Social History Tobacco Use Types Packs/Day Years [...] do you attend catholic or Never 2021 shinto services? Do you [...]
--- OUTSIDE RECORDS SUMMARY | 2022-01-12 12:41 | XMS_ITS | Encounter Summary ---
:1955 Author Organization [facility] Address [address] [place] [address] Care Team Providers Name Role Phone Unavailable Primary Care Provider Unavailable Encounter Details Date Type Department Care Team Description 07/19/2015 - Hospital Encounter HX RST PMR PT OT Clare Clay , 07/26/2015 O.T. [address] [facility] [address] [place], [place] [address] (Wo rk) Social History [...] do you attend uatsdin or Never 2021 orthodoxy services? Do you [...] Noted Time PHQ-9 Depression Total Score: 4 01/24/2015 6:02 PM PRECISION LENS GRINDER documented as of this encounter
--- OUTSIDE RECORDS SUMMARY | 2022-01-12 12:41 | XMS_ITS | Encounter Summary ---
:1955 Author Organization [facility] Address [address] [place] [address] Care Team Providers Name Role Phone Unavailable Primary Care Provider Unavailable Encounter Details Date Type Department Care Team Description 07/24/2015 - Hospital Encounter HX RST PAIN REHAB Indy Ramos, 07/31/2015 PSYCH OP WEB OPERATIONS MANAGER, PREFLIGHT MECHANIC, D.N.P., M.S.N. [address] [place] [phone] Social History Tobacco Use Types Packs/Day Years [...] do you attend shinto or Never 2021 restorationist services? Do you belong to any clubs [...]
--- OUTSIDE RECORDS SUMMARY | 2022-01-12 12:41 | XMS_ITS | Encounter Summary ---
:1955 Author Organization [facility] Address [address] [place] [address] Care Team Providers Name Role Phone Unavailable Primary Care Provider Unavailable Encounter Details Date Type Department Care Team Description 07/24/2015 - Hospital Encounter HX RST PAIN REHAB Indy Ramos, 07/31/2015 PSYCH OP PACKER FUSER, EVAPORATOR HELPER, D.N.P., M.S.N. [address] [place] [phone] Social History Tobacco Use Types Packs/Day Years [...] do you attend catholic or Never 2021 zoroastrian services? Do you [...]
--- OUTSIDE RECORDS SUMMARY | 2022-01-12 12:41 | XMS_ITS | Encounter Summary ---
:1955 Author Organization [facility] Address [address] [place] [address] Care Team Providers Name Role Phone Unavailable Primary Care Provider Unavailable Encounter Details Date Type Department Care Team Description 07/25/2015 - Hospital Encounter HX RST PAIN REHAB Indy Ramos, 08/01/2015 PSYCH OP LEADERSHIP DEVELOPMENT MANAGER, RN HOME HEALTH, D.N.P., M.S.N. [address] [place] [phone] Social History Tobacco Use Types Packs/Day Years [...] you attend roman catholic or Never 2021 holiness services? Do you [...]
--- OUTSIDE RECORDS SUMMARY | 2022-01-12 12:41 | XMS_ITS | Encounter Summary ---
:1955 Author Organization [facility] Address [address] [place] [address] Care Team Providers Name Role Phone Unavailable Primary Care Provider Unavailable Encounter Details Date Type Department Care Team Description 01/30/2015 Hospital Encounter HX [facility] Guido Man M.D. [address] [place] [address], [address] [place] [address] (Wo rk) Social History Tobacco [...] do you attend mormonism or Never 2021 episcopal services? Do you [...] Sign Reading Time Taken Comments Blood Pressure 120/64 01/30/2015 2:20 PM DIRECTOR OF PATIENT SAFETY Pulse - - Temperature - - Respiratory Rate - - Oxygen Saturation - - Inhaled Oxygen Concentration - - Weight 121 kg (267 lb 10.2 oz) 01/30/2015 2:20 PM DIRECTOR OF PATIENT SAFETY Height - - Body Mass Index 39.64 11/08/2013 12:47 PM CDT documented in this encounter Medications at Time of Discharge Medication Sig Dispensed Refills Start Date End Date co-enzyme Q-10 (CO Q-10) Take 1 capsule by 0 04/17 100 mg capsule mouth daily. multivitamin tablet Take 1 tablet by 0 [...] encounter Progress Notes Yobani Man M.D. - 01/30/2015 2:11 PM CST [id number] CHIEF COMPLAINT/REASON FOR VISIT Followup low back pain and left lateral hip pain. HISTORY OF PRESENT ILLNESS Ms. Caro returns today in followup. Since I last saw her she reports that her left lateral hip pain is doing much better. She was evaluated by Dr. Ziggy Cabello, Neurologist, and had a variety of different studies performed including an EMG of her right upper and lower extremity as well as laboratory testing, which I do not have for review today. She also had MRIs performed of her cervical and lumbar spine and I did review those images with her. The lumbar spine MRI shows severe L2-3 disc degeneration with moderate central canal and left subarticular recess stenosis. There is residual mild L3-L4 central stenosis. There is facet hypertrophy and mild left subarticular recess stenosis and bilateral facet hypertrophy at L5-S1. Cervical spine MRI is degraded by motion artifact. There is severe stenosis cord compression at C5-C6 with severe foraminal stenosis bilaterally. There is moderate to severe right central stenosis at C6-C7 with severe bilateral chronic foraminal stenosis. There is mo derate C4-C5 central stenosis with a right posterolateral foraminal protrusion that results in rightC5 compression. Again, this is limited secondary to motion artifact. Ms. Caro reports that the majority of her pain now is located in the left side of her lowback. She describes this pain as an achy discomfort. This pain is worse when she is standing in one position for a prolonged period of time or sitting for a prolonged period of time. She does not have any pain radiating into the gluteal region or thighs. She does have occasional tingling and numbness that can occur in the bilateral feet that radiates from the lateral leg to the level of the knees. PHYSICAL EXAMINATION GENERAL: Pleasant 59-year-old female in no acute distress. NEUROLOGIC: Gait: Nonantalgic. Strength: All major muscle groups of the bilateral lower extremities have normal and symmetric muscle strength, bulk and tone. Sensation: Decreased sensation to light touch in a stocking distribution to the level of the ankles. Reflexes: Patellar tendon 0/0, Achilles -1/-1. Straight leg raise is negative for radicular pain or paresthesias bilaterally. IMPRESSION/REPORT/PLAN 1. Low back pain. 2. Lumbar spondylosis. 3. Lumbar spinal stenosis. 4. Fibromyalgia. 5. Neck pain. 6. Cervical stenosis. This is a difficult situation for Ms. Caro. I feel that her symptoms are likely multifactorial. Her pain at the current time appears to be more consistent with a facetogenic etiology as her pain is primary axial. She is having paresthesias that can occur in the bilateral lateral legs but this occur primarily when she is sitting, not as much when she is standing, and do not fit with classicpseudoclaudication. PLAN: 1. Ms. Caro has several medical issues currently ongoing including evaluation for a thyroid nodule. She is scheduled to meet with a general surgeon later this week. She also has a meeting with a speech therapy teacher and is going to be using a Holter monitor. We did discuss potentially proceeding with left L4-L5 and L5-S1 facet joint corticosteroid injections as these have helped Ms. Caro so significantly in the past. We are going to defer that until after those evaluations, especially for the thyroid nodule, is complete. 2. Ms. Caro will follow up with Dr. Cabello with respect to her cervical spine MRI findings. Of note, she has had no upper motor neuron signs in the time that I have been evaluating her. Ms. Caro voices agreement and understanding of this plan. Total time 30 minutes, counseling time greater than 15 minutes. Yobani Man M.D./veena Electronically Signed By: YOBANI MAN MD On: 02/06/2015 05:11 PM Modified by and Electronically Signed by: YOBANI MAN MD On: 02/06/2015 05:11 PM Source: [facility] MHSDOLBEYNONRADSYS Document Id: [id number] CTOR OF PATIENT SAFETY documented in this encounter Miscellaneous Notes Miscellaneous - Rain Mishra R.N. - 02/21/2015 8:52 AM CST lyrica Document Contains Addenda Addendum by RAIN MISHRA RN on 21 February 2015 14:44:35 DIRECTOR OF PATIENT SAFETY Called into [facility] Addendum by YOBANI MAN MD on 21 February 2015 13:34:09 DIRECTOR OF PATIENT SAFETY From: YOBANI MAN MD To: RAIN MISHRA RN; Sent: 02/21/2015 13:34:09 DIRECTOR OF PATIENT SAFETY Subject: RE: lyrica Please call. Thanks. Addendum by YOBANI MAN MD on 21 February 2015 13:34:02 DIRECTOR OF PATIENT SAFETY Submitted: Order:pregabalin (Lyrica 150 mg oral capsule) 1 cap(s) PO 2xDay Qty: 60 cap(s) Refills: 5 Substitutions Allowed Don't Print - called to pharmacy (Rx) Signed by YOBANI MNA MD 02/21/2015 13:33:53 From: RAIN MISHRA RN To: YOBANI MAN MD; Sent: 02/21/2015 08:52:38 DIRECTOR OF PATIENT SAFETY Subject: lyrica Caller is: ( ) Patient ( ) Mother ( ) Father ( ) Spouse ( ) Daughter ( ) Son ( 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 POWERCHART Document Id: [id number] Electronically signed by Conversion, [facility] Merchandise Supervisor [id number] at 08/12/2016 6:11 AM CDT Miscellaneous - Yobani Man M.D. - 01/30/2015 3:09 PM CST Ambulatory Patient Summary [facility] [address] [place] [id number] Visit Information Name: FANTA CARO [facility] Number: [id number] Current Date: 01/30/2015 15:09:48 Physicians Attending Provider: YOBANI MAN MD Primary Care Provider: PCP, ELSEWHERE FANTA CARO has been given the following list [...] 20mg) 1 Tablet(s), Oral, once a day ibuprofen (ibuprofen 800 mg oral tablet) 1 Tablet(s), Oral, three times a day Take with food levOCARNitine (L-Carnitine) lidocaine topical (Lidoderm 5% topical [...] capsule) 1 Tablet(s), Oral, once a day oxycodone (oxycodone 5 mg oral tablet) 2 Tablet(s), Oral, once a day as needed for pain pregabalin (Lyrica 150 mg oral capsule) 1 cap, Oral, two times a day zolpidem (Ambien) Oral, once a day (at bedtime) Stop Taking the Following Medications: Medication list as of 01-30-15 15:09 Attention: If you have any medications at [...] Electronically Signed By: YOBANI MAN MD Signed On:30-JAN-2015 15:09:16 Your Allergies & Intolerances Substance Reaction Symptoms [...] you dont have one. Go to [email or web address] and click on Create Your Account. Then, follow the directions to complete the online form. Youll be asked for your [facility] number which you can find at the top of this document. Your Goals/Additional instructions: Source: [facility] POWERCHART Document Id: [id number] CTOR OF PATIENT SAFETY Miscellaneous - Yobani Man M.D. - 01/30/2015 3:09 PM CST Ambulatory Discharge Medication List [address] [id number] Visit Information Name: FANTA CARO [facility] Number: [id number] Visit Date: 01/30/2015 15:09:46 Attending Provider: YOBANI MAN MD Primary Care [...] 20mg) 1 Tablet(s), Oral, once a day ibuprofen (ibuprofen 800 mg oral tablet) 1 Tablet(s), Oral, three times a day Take with food levOCARNitine (L-Carnitine) lidocaine topical (Lidoderm 5% topical [...] capsule) 1 Tablet(s), Oral, once a day oxycodone (oxycodone 5 mg oral tablet) 2 Tablet(s), Oral, once a day as needed for pain pregabalin (Lyrica 150 mg oral capsule) 1 cap, Oral, two times a day zolpidem (Ambien) Oral, once a day (at bedtime) Stop Taking the Following Medications: Medication list as of 01-30-15 15:09 Attention: If you have any medications at [...] Electronically Signed By: YOBANI MAN MD Signed On:30-JAN-2015 15:09:16 Additional Information: Source: [facility] POWERCHART Document Id: [id number] CTOR OF PATIENT SAFETY Miscellaneous - Nba Lockett - 01/30/2015 2:20 PM CST Adult Office Systems Technology Instructor Intake/History Adult Office Systems Technology Instructor Intake/History Entered On: 01/30/2015 14:22 DIRECTOR OF PATIENT SAFETY Performed On: 01/30/2015 14:20 DIRECTOR OF PATIENT SAFETY by NBA LOCKETT LPN Intake Actual Weight : 121.4 kg(Converted to: 267 lb 10 oz) Dosing Weight Clinic : 121.4 kg NBA LOCKETT LPN - 01/30/2015 14:22 DIRECTOR OF PATIENT SAFETY Systolic Blood Pressure : 120 mmHg Diastolic Blood Pressure : 64 mmHg NIBP Mean : 83 mmHg BP Location : Left upper extremity Blood Pressure Cuff Size : Regular Weight Source : Standing scale NBA LOCKETT LPN - 01/30/2015 14:20 DIRECTOR OF PATIENT SAFETY General Info Information Given By : Patient Preferred Communication Mode : Verbal Languages : Azeri Is Patient Female and 13-50 no hysterectomy : No NBA LOCKETT LPN - 01/30/2015 14:20 DIRECTOR OF PATIENT SAFETY Subjective Pain Symptoms : NBA Covington LPN - 01/30/2015 14:20 DIRECTOR OF PATIENT SAFETY Dependent Habits Tobacco Use/Currently Using : No Exposure to Tobacco Smoke : Other: never Smoking Status : Never smoker NBA LOCKETT LPN - 01/30/2015 14:20 DIRECTOR OF PATIENT SAFETY [facility] POWERCHART Document Id: [id number] DIRECTOR OF PATIENT SAFETY!4 CTOR OF PATIENT SAFETY documented in this encounter Plan of Treatment Not on filedocumented as of this encounter Visit Diagnoses Not on filedocumented in this encounter Additional Health Concerns Assessment Noted Time PHQ-9 Depression Total Score: 4 01/24/2015 6:02 PM DIRECTOR OF PATIENT SAFETY documented as of this encounter
--- OUTSIDE RECORDS SUMMARY | 2022-01-12 12:41 | XMS_ITS | Encounter Summary ---
:1955 Author Organization [facility] Address [address] [place] [address] Care Team Providers Name Role Phone Unavailable Primary Care Provider Unavailable Encounter Details Date Type Department Care Team Description 07/24/2015 - Hospital Encounter HX RST PMR PT OT Denny Reddy 07/31/2015 L, P.T. [address] [place] [address] Social History Tobacco Use Types Packs/Day Years [...] do you attend spiritism or Never 2021 spiritism services? Do you [...]
--- OUTSIDE RECORDS SUMMARY | 2022-01-12 12:41 | XMS_ITS | Encounter Summary ---
:1955 Author Organization [facility] Address [address] [place] [address] Care Team Providers Name Role Phone Unavailable Primary Care Provider Unavailable Encounter Details Date Type Department Care Team Description 07/19/2015 Hospital Encounter HX NO MAPPING Mata And ambreen Polk PSukh [address] [place], [place] [phone] (Wo rk) Social History [...] do you attend yazdanism or Never 2021 quaker services? Do you belong to any clubs [...] Depression Total Score: 4 01/24/2015 6:02 PM MODEL MAKER documented as of this encounter
--- OUTSIDE RECORDS SUMMARY | 2022-01-12 12:41 | XMS_ITS | Encounter Summary ---
:1955 Author Organization [facility] Address [address] [place] [address] Care Team Providers Name Role Phone Unavailable Primary Care Provider Unavailable Encounter Details Date Type Department Care Team Description 07/25/2015 - Hospital Encounter HX RST PMR PT OT Denny Reddy 08/01/2015 L, P.T. [address] [place] [address] Social History Tobacco Use Types Packs/Day Years [...] do you attend jewish or Never 2021 buddhist services? Do you [...]
--- OUTSIDE RECORDS SUMMARY | 2022-01-12 12:41 | XMS_ITS | Encounter Summary ---
:1955 Author Organization [facility] Address [address] [place] [address] Care Team Providers Name Role Phone Unavailable Primary Care Provider Unavailable Encounter Details Date Type Department Care Team Description 07/21/2015 - Hospital Encounter HX RST PAIN REHAB Kaye Fitzpatrick 07/28/2015 PSYCH OP L, FINISH PATCHER, PRE SALES TECHNICAL ENGINEER, R. N. [address] PRATHER, Evar[address] [place], [place] [address] (Wo rk) Social History [...] or relatives? How often do you attend denominational or Never 2021 holiness services? Do you belong to any clubs or Yes 12/12/2021 organizations such as denominational groups, unions, fraternal or athletic groups, or [...]
--- OUTSIDE RECORDS SUMMARY | 2022-01-12 12:41 | XMS_ITS | Encounter Summary ---
:1955 Author Organization [facility] Address [address] [place] [address] Care Team Providers Name Role Phone Unavailable Primary Care Provider Unavailable Encounter Details Date Type Department Care Team Description 07/21/2015 - Hospital Encounter HX RST PAIN REHAB Indy Ramos, 07/28/2015 PSYCH OP VENEER DEPARTMENT MANAGER, BOTTOM CAGER, D.N.P., M.S.N. [address] [place] [phone] Social History Tobacco Use Types Packs/Day Years [...] do you attend judaism or Never 2021 synagogue services? Do you [...]
--- OUTSIDE RECORDS SUMMARY | 2022-01-12 12:41 | XMS_ITS | Encounter Summary ---
:1955 Author Organization [facility] Address [address] [place] [address] Care Team Providers Name Role Phone Unavailable Primary Care Provider Unavailable Encounter Details Date Type Department Care Team Description 04/10/2015 Hospital Encounter HX [facility] Guido Man M.D. [address] [place] [address], [address] [place] [address] (Wo rk) Social History Tobacco [...] do you attend sikh or Never 2021 catholic services? Do you [...] Sign Reading Time Taken Comments Blood Pressure 124/66 04/10/2015 2:43 PM PUTTY GLAZER Pulse - - Temperature - - Respiratory Rate - - Oxygen Saturation - - Inhaled Oxygen Concentration - - Weight 119 kg (261 lb 14.5 oz) 04/10/2015 2:43 PM PUTTY GLAZER Height - - Body Mass Index 38.79 11/08/2013 12:47 PM CDT documented in this [...] loratadine (for_CLARITIN) Take 1 tablet by 0 2 08/200912/27/2021 10 mg tablet mouth daily. quinapril-hydroCHLOROthia Take 1 tablet by 0 09/1507/21/2017 zide (for_ACCURETIC) mouth daily. 20-12.5 mg per tablet valACYclovir (VALTREX) Take 1 tablet by 0 010 06/23/2020 1000 mg tablet mouth as needed. documented as of this encounter Progress Notes Yobani Man M.D. - 04/10/2015 2:22 PM CST [id number] CHIEF COMPLAINT/REASON FOR VISIT Neck pain and cervical spinal stenosis and low back pain. HISTORY OF PRESENT ILLNESS Ms. Caro returns today. Since I last saw her, she is seeing Dr. Ziggy Cabello at [facility], and I spoke with Dr. Cabello on the phone. Dr. Cabello had ordered a cervical spine MRI which Ms. Caro had performed on January 25, 2015. This did show severe central canal stenosis and cord compression at C5-C6 secondary to disk protrusion. There is also severe foraminal stenosis at C5-C6. There is mild to severe central canal stenosis at C6-C7 with severe bilateral chronic foraminal stenosis. There is also moderate right C4-5 central disk canal stenosis with right posterolateral foraminal protrusion results in right C5 nerve root compression. There is motion, degrades some of the sensitivity overall. There is no evidence of abnormal spinal cord signal seen within the cord at any level. Ms. Caro did meet with Dr. Cabello who recommended meet with the neurosurgeon. Ms. Caro describes pain as located in both sides of her neck. This is an achy discomfort.This typically is not as bothersome for her as her low back pain or her hip pain that she can experience on a more regular basis. She very occasionally can have pain that will radiate into the right upper extremity. Typically this involves the shoulder and humerus to the level of the elbow but that isnot very frequent. She denies any paresthesias or focal weakness in her upper extremities. She denies any changes in her bowel or bladder habits. She has a longstanding history of difficulty initiatingvoiding which has not changed. She does have issues with her balance which have also been longstandin g. PHYSICAL EXAMINATION GENERAL: A pleasant 59-year-old female in no acute distress. SPINE: -1 globally decreased cervical spine range of motion. Spurling's is negative bilaterally for radiating pain although does cause pain in both the right and left sides of her neck. STRENGTH: All major muscle groups of the bilateral upper and lower extremities have normal and symmetric muscle strength, bulk and tone. REFLEXES: Bilateral upper and lower extremity muscle stretch reflexes are physiologic and symmetric.Plantar responses downgoing bilaterally. UPPER EXTREMITIES: Patellar tendon -1/-1 (bilateral total knee arthroplasties), Achilles -2/-2. Plantar responses downgoing bilaterally. Negative Dos Santos's bilaterally. IMPRESSION/REPORT/PLAN 1. Neck pain. 2. Cervical spondylosis. 3. Cervical spinal stenosis. 4. Lumbar spondylosis. 5. Lumbar spinal stenosis. 6. Fibromyalgia. Ms. Caro continues to have a normal neurologic examination today without any focal neurologic deficits. She does not have any evidence of a myelopathy clinically. However, she does have severe central canal stenosis at C5-C6 based on her cervical spine MRI that was performed in [place]. With the degree of stenosis seen on the MRI, I do feel it would be worthwhile for Ms. Encinas be evaluated by Neurology and/or Neurosurgery in [place] to obtain their opinion with respect to that at this time, and Ms. Caro is also in agreement with that and would appreciate thisas she understandably has been concerned since obtaining the cervical spine MRI and her appointment w beatriz Cabello. PLAN: 1. I am going to refer Ms. Caro to Neurosurgery in [place]. 2. Ms. Caro will continue with her other interventions for her fibromyalgia and low back pain including being involved in her aquatic rehabilitation program, although she has been unable to do that for the past couple of weeks because of a rash and so hopefully she will be able to get back in the pool soon, as that has caused an exacerbation of her low back pain. 3. I will plan on being in contact with Ms. Caro following her consultation in [place].She knows to be in contact with me prior to that time if she notes any worsening symptoms which we went over in detail today. Ms. Caro voiced agreement with this plan. Total time 45 minutes, counseling and coordination of care time greater than 25 minutes. Yobani Man M.D./veena Electronically Signed By: YOBANI MAN MD On: 04/19/2015 06:18 PM Modified by and Electronically Signed by: YOBANI MAN MD On: 04/19/2015 06:18 PM Source: [facility] MHSDOLBEYNONRADSYS Document Id: [id number] Y GLAZER documented in this encounter Miscellaneous Notes Miscellaneous - Yobani Man M.D. - 04/10/2015 3:26 PM CST Ambulatory Patient Summary [place] [facility] [address] [place], [place] [phone] Visit Information Name: FANTA CARO [facility] Number: [id number] Current Date: 04/10/2015 15:26:33 Physicians Attending Provider: YOBANI MAN MD Primary Care Provider: PCP, GABE FANTA CARO has been given the following [...] the Following Medications: Medication list as of 04-10-15 15:26 Attention: If you have any medications at [...] Electronically Signed By: YOBANI MAN MD Signed On:10-APR-2015 15:25:50 Your Allergies & Intolerances Substance Reaction Symptoms [...] you dont have one. Go to [email or web address] and click on Create Your Account. Then, follow the directions to complete the online form. Youll be asked for your [facility] number which you can find at the top of this document. Your Goals/Additional instructions: Source: [facility] POWERCHART Document Id: [id number] Y GLAZER Miscellaneous - Yobani Man M.D. - 04/10/2015 3:26 PM CST Ambulatory Discharge Medication List [address] [id number] Visit Information Name: FANTA CARO [facility] Number: [id number] Visit Date: 04/10/2015 15:26:31 Attending Provider: YOBANI MAN MD Primary Care [...] the Following Medications: Medication list as of 04-10-15 15:26 Attention: If you have any medications at [...] Electronically Signed By: YOBANI MAN MD Signed On:10-APR-2015 15:25:50 Additional Information: Source: [facility] [employer] The[employer]CHART Document Id: [id number] Y GLAZER Miscellaneous - Wilda Giraldo L.P.N. - 04/10/2015 2:43 PM CST Adult Auto Radiator Mechanic Intake/History Adult Auto Radiator Mechanic Intake/History Entered On: 04/10/2015 14:44 PUTTY GLAZER Performed On: 04/10/2015 14:43 PUTTY GLAZER by WILDA GIRALDO LPN Intake Systolic Blood Pressure : 124 mmHg Diastolic Blood Pressure : 66 mmHg NIBP Mean : 85 mmHg BP Location : Left upper extremity Blood Pressure Cuff Size : Large Actual Weight : 118.8 kg(Converted to: 261 lb 15 oz) Dosing Weight Clinic : 118.8 kg WILDA GIRALDO LPN - 04/10/2015 14:43 PUTTY GLAZER General Info Information Given By : Patient Languages : [place] Islander Is Patient Female and 13-50 no hysterectomy : No WILDA GIRALDO LPN - 04/10/2015 14:43 PUTTY GLAZER Subjective Pain Symptoms : No WILDA GIRALDO LPN - 04/10/2015 14:43 PUTTY GLAZER Dependent Habits Exposure to Tobacco Smoke : Other: never Smoking Status : Never smoker Tobacco 2A : No Tobacco Use/Currently Using : No Tobacco Use/Last 30 Days : No Tobacco Use/Last 12 months : No WILDA GIRALDO LPN - 04/10/2015 14:43 PUTTY GLAZER Source: [facility] [employer] Document Id: [id number] PUTTY GLAZER!22 Y GLAZER documented in this encounter Plan of Treatment Not on filedocumented as of this encounter Visit Diagnoses Not on filedocumented in this encounter Additional Health Concerns Assessment Noted Time PHQ-9 Depression Total Score: 4 01/24/2015 6:02 PM PUTTY GLAZER documented as of this encounter
--- OUTSIDE RECORDS SUMMARY | 2022-01-12 12:41 | XMS_ITS | Encounter Summary ---
:1955 Author Organization [facility] Address [address] [place] [address] Care Team Providers Name Role Phone Unavailable Primary Care Provider Unavailable Encounter Details Date Type Department Care Team Description 03/02/2015 Hospital Encounter HX [facility] Guido Man M.D. [address] [place] [address], [address] [place] [address] (Wo rk) Social History Tobacco [...] do you attend orthodox or Never 2021 jewish services? Do you [...] Reading Time Taken Comments Blood Pressure 128/72 03/02/2015 3:18 PM DELINQUENT ACCOUNT CLERK Pulse - - Temperature - - Respiratory Rate - - Oxygen Saturation - - Inhaled Oxygen Concentration - - Weight 118 kg (260 lb 9.3 oz) 03/02/2015 3:18 PM DELINQUENT ACCOUNT CLERK Height - - Body Mass Index 38.6 11/08/2013 12:47 PM CDT documented in this [...] encounter Progress Notes Yobani Man M.D. - 03/02/2015 3:01 PM CST [id number] CHIEF COMPLAINT/REASON FOR VISIT Followup low back and left lateral hip pain. HISTORY OF PRESENT ILLNESS Ms. Caro returns today in followup. She had bilateral L4-L5 and L5-S1 facet joint corticosteroid injections performed on February 23, 2015. She reports that she has noted some improvement with respect to that which is excellent. She also feels her left lateral hip pain has been doing well but she has been noticing more pain in the left groin especially when she takes her first few steps inthe morning or when she is on her feet throughout the day. This pain can extend into the lateral hipand the gluteal region. She also was talking about a few things with respect to her feet today. She has noted some bony deformity at the 5th MTP joint as well as at the first MTP joint. She has also noted some pain in the region of the 3rd MTP joints bilaterally. PHYSICAL EXAMINATION GENERAL: Pleasant 59-year-old female in no acute distress. NEUROLOGIC: Gait: Non-antalgic. Strength: All major muscle groups of the bilateral lower extremitieshave normal and symmetric muscle strength, bulk and tone. MUSCULOSKELETAL: Hip: Preserved hip range of motion bilaterally. Negative Stinchfield's bilaterally.There is tenderness with palpation directly over the iliopsoas tendon on the left. There is minimal tenderness today with palpation over the left greater trochanteric bursa region. Foot: There is tenderness to palpation of the 3rd MTP joints bilaterally on the plantar aspect of the foot. IMPRESSION/REPORT/PLAN 1. Low back pain. 2. Lumbar spondylosis. 3. Lumbar spinal stenosis. 4. Fibromyalgia. 5. Neck pain. 6. Cervical stenosis. 7. Left hip pain. 8. Bilateral foot pain. Ms. Caro overall is making very good progress. I do feel that her symptoms now in the left groin are most consistent with an iliopsoas strain. PLAN: 1. I am going to have Ms. Caro continue to advance her aquatic-based program which I commended her on. She is very diligent with that program which is excellent. 2. I am going have her obtain MTP relief pads which she will use with her custom orthotics which hopefully will relieve pressure off the 3rd MTP joints bilaterally. Ms. Caro voiced agreementand understanding of this plan. Total time 25 minutes, counseling time greater than 15 minutes. Yobani Man M.D./veena Electronically Signed By: YOBANI MAN MD On: 03/07/2015 10:31 AM Modified by and Electronically Signed by: YOBANI MAN MD On: 03/07/2015 10:31 AM Source: [facility] [email or web address] Document Id: [id number] NQUENT ACCOUNT CLERK documented in this encounter Miscellaneous Notes Miscellaneous - Yobani Man M.D. - 03/02/2015 3:57 PM CST Ambulatory Patient Summary [address] [id number] Visit Information Name: KHRISMATTSONFANTA ASHBY [facility] Number: [id number] Current Date: 03/02/2015 15:57:31 Physicians Attending Provider: YOBANI MAN MD Primary [...] the Following Medications: Medication list as of 03-02-15 15:57 Attention: If you have any medications at [...] Electronically Signed By: YOBANI MAN MD Signed On:02-MAR-2015 15:57:01 Your Allergies & Intolerances Substance Reaction Symptoms [...] if you dont have one. Go to [email or web address] and click on Create Your Account. Then, follow the directions to complete the online form. Youll be asked for your [facility] number which you can find at the top of this document. Your Goals/Additional instructions: Source: [facility] POWERCHART Document Id: [id number] NQUENT ACCOUNT CLERK Miscellaneous - Yobani Man M.D. - 03/02/2015 3:57 PM CST Ambulatory Discharge Medication List [address] [id number] Visit Information Name: FANTA CARO [facility] Number: [id number] Visit Date: 03/02/2015 15:57:30 Attending Provider: YOBANI MAN MD Primary Care [...] the Following Medications: Medication list as of 03-02-15 15:57 Attention: If you have any medications at [...] Electronically Signed By: YOBANI MAN MD Signed On:02-MAR-2015 15:57:01 Additional Information: Source: [facility] SyndicateRoom Document Id: [id number] NQUENT ACCOUNT CLERK Miscellaneous - Wilda Giraldo, L.P.N. - 03/02/2015 3:18 PM CST Adult Bank Analyst Intake/History Adult Bank Analyst Intake/History Entered On: 03/02/2015 15:20 DELINQUENT ACCOUNT CLERK Performed On: 03/02/2015 15:18 DELINQUENT ACCOUNT CLERK by WILDA GIRALDO LPN Intake Systolic Blood Pressure : 128 mmHg Diastolic Blood Pressure : 72 mmHg NIBP Mean : 91 mmHg BP Location : Left upper extremity Blood Pressure Cuff Size : Large Actual Weight : 118.2 kg(Converted to: 260 lb 9 oz) Dosing Weight Clinic : 118.2 kg WILDA GIRALDO LPN - 03/02/2015 15:18 DELINQUENT ACCOUNT CLERK General Info Information Given By : Patient Languages : Chilean Is Patient Female and 13-50 no hysterectomy : No WILDA GIRALDO LPN - 03/02/2015 15:18 DELINQUENT ACCOUNT CLERK Subjective Pain Symptoms : No WILDA GIRALDO LPN - 03/02/2015 15:18 DELINQUENT ACCOUNT CLERK Dependent Habits Exposure to Tobacco Smoke : Other: never Smoking Status : Never smoker Tobacco 2A : No WILDA GIRALDO LPN - 03/02/2015 15:18 DELINQUENT ACCOUNT CLERK Source: [facility] POWERCHART Document Id: [id number] DELINQUENT ACCOUNT CLERK!19 NQUENT ACCOUNT CLERK documented in this encounter Plan of Treatment Not on filedocumented as of this encounter Visit Diagnoses Not on filedocumented in this encounter Additional Health Concerns Assessment Noted Time PHQ-9 Depression Total Score: 4 01/24/2015 6:02 PM DELINQUENT ACCOUNT CLERK documented as of this encounter
--- OUTSIDE RECORDS SUMMARY | 2022-01-12 12:41 | XMS_ITS | Encounter Summary ---
:1955 Author Organization [facility] Address [address] [place] [address] Care Team Providers Name Role Phone Unavailable Primary Care Provider Unavailable Encounter Details Date Type Department Care Team Description 12/29/2014 Hospital Encounter HX [facility] Guido Padilla M.D. [address] [place] [address], [address] [place] [address] (Wo rk) Social History Tobacco [...] do you attend mormon or Never 2021 alevism services? Do you [...] Sign Reading Time Taken Comments Blood Pressure 124/68 12/29/2014 1:57 PM CDT Pulse - - Temperature - - Respiratory Rate - - Oxygen Saturation - - Inhaled Oxygen Concentration - - Weight 121 kg (267 lb 13.7 oz) 12/29/2014 1:57 PM CDT Height - - Body Mass Index 39.67 11/08/2013 12:47 PM CDT documented in this encounter Medications at Time of Discharge Medication Sig Dispensed Refills Start Date End Date co-enzyme Q-10 (CO Q-10) Take 1 capsule by 0 / 100 mg capsule mouth daily. multivitamin tablet [...] as of this encounter Progress Notes Yobani Padilla M.D. - 12/29/2014 1:38 PM CDT [id number] CHIEF COMPLAINT/REASON FOR VISIT Follow up low back pain and left lateral hip pain and diffuse pain. HISTORY OF PRESENT ILLNESS Ms. Caro returns today. Since last saw her, she has been involved physical therapy has made good progress overall with respect to her diffuse pain. She has also returned to swimming on a regular basis and she feels has been helpful for her pain. She feels that her quality of life and function has improved. She continues to describe pain as located in the left side of her low back that can be limiting for her specially when she has to stand or walk for any period of time. She also continues to have pain in her left lateral hip which is most pronounced 1st thing in the morning, wakens her from sleep. It can also wake her from sleep at times when she lies on her left side. She denies any pain radiating distal to the lateral hip or any focal weakness in her lower extremities. PHYSICAL EXAMINATION GENERAL: Pleasant 59-year-old female in no acute distress. SPINE: -1 global decreased lumbar spine range of motion. Has marked tenderness to palpation left greater trochanteric bursa region as well as tenderness over the left greater than right lower lumbar paraspinals. IMPRESSION/REPORT/PLAN 1. Left gluteal and lateral thigh pain. 2. Low back pain. 3. Lumbar spondylosis. 4. Fibromyalgia. PLAN: 1. We are going to proceed today with an ultrasound-guided left greater trochanteric bursa corticosteroid injection. Please see separate note dictated for details of this procedure. 2. Ms. Caro will continue the exercises that she was instructed on her own in physical therapy as well as continue her aquatic-based exercise program which I commended her on her diligence to that program today. 3. I am going to refer Ms. Caro to the [facility] at [place]. I think that she would be an ideal candidate for this program. She did go through the [facility] program approximately 15 years ago and I think that with her diffuse pain it can be very functionally limiting for her. I think she would be an ideal candidate for this program. She would like to proceed with this Nancy will make that referral for her. 4. We will plan on being in contact with Ms. Caro in 2 weeks to assess her progress following today's procedure and she knows to be in contact with me prior to that time if she notes any worsening or worrisome symptoms, which we went over in detail today. Ms. Caro voiced agreement with this plan. Yobani Padilla M.D./aos Electronically Signed By: YOBANI PADILLA MD On: 01/02/2015 09:41 AM Modified by and Electronically Signed by: YOBANI PADILLA MD On: 01/02/2015 09:41 AM Source: [facility] MHSDOLBEYNONRADSYS Document Id: [id number] documented in this encounter Procedure Notes Yobani Padilla M.D. - 12/29/2014 12:00 AM CDT 1RPT DIAGNOSIS Left greater trochanter bursitis. HISTORY/INDICATION: Please my clinical note dated 12/29/2014 for details of the HPI. PROCEDURE PERFORMED: Ultrasound-guided left greater trochanteric bursa corticosteroid injection. PATIENT EDUCATION: [...] image of the tissue plane between the left gluteus vincenzo and gluteus medius as well as the left greater trochanter was obtained with a 5-1 curvilinear transducer. A preprocedure image was saved to the hard drive. Following this, the area was prepped with a ChloraPrep scrub, then re-examined using the same transducer, a sterile ultrasound transducer cover, and sterileultrasound transducer gel. Next, 3 mL of 1% lidocaine was used for local anesthesia using a 25-gauge, 2 inch needle. Following delivery of local anesthesia, real time ultrasound was used to guide a 22-gauge, 3-1/2 inch needle into the tissue plane between the gluteus vincenzo and gluteus medius. After negative aspiration for blood, 3 mL of a mixture of 5 mL of 1% lidocaine and 1 mL of 40 mg/mL Depot Medrol was delivered to the target area with real-time ultrasonographic imagin. Then the needle was advanced deep to the gluteus medius tendon and the remaining 3 mL were deposited here. The injectate was delivered without complications. Zero mL of were wasted due to single use vials [...] any difficulty following todays procedure. Otherwise, we plan on being in contact with her over the phone in 2 weeks to assess her progress. Yobani Padilla M.D./veena Electronically Signed By: YOBANI PADILLA MD On: 01/02/2015 10:08 AM Modified by and Electronically Signed by: YOBANI PADILLA MD On: 01/02/2015 10:08 AM Source: [facility] MHSDOLBEYNONRADSYS Document Id: [id number] documented in this encounter Miscellaneous Notes Telephone Encounter - Nba Benson Jose Roberto - 01/19/2015 1:28 PM CST MRI From: NBA BENSON LPN ( Physical Medicine and Rehabilitation Staff) To: YAZ CARO Sent: 01/19/2015 13:28:33 ENRICHMENT TEACHER Subject: MRI Anmolpratibha Yaz, Sorry for the blank message, not sure what happened, I was just asking if you would be able to bringalong a copy of the MRI on CD when you come for your appointment. Thanks, ALICIA Fang Source: [facility] Laboratories Document Id: [id number] Electronically signed by Conversion, [facility] Appliance Servicer [id number] at 08/12/2016 3:47 AM CDT Telephone Encounter - Nba Benson - 01/19/2015 7:49 AM CST RE: MRI From: NBA BENSON LPN ( Physical Medicine and Rehabilitation Staff) To: YAZ CARO Sent: 01/19/2015 07:49:33 ENRICHMENT TEACHER Subject: RE: MRI Glad it's scheduled already! Would you be able to bring the images from the MRI with on a CD to yourappointment? Nba Stanley From: YAZ CARO To: Physical Medicine and Rehabilitation Staff Sent: 01/18/2015 7:07:46 PM ([facility]-06:00) Central Time ([place] & [place]) Subject: RE: MRI Thank you, Nba. I already have it scheduled together with the other scan. The only (big) minus is that I have to be there at 8 in the morning! ?? Many thanks to both of you for dealing with this so promptly! See you on the Yaz From: NBA BENSON LPN ( Physical Medicine and Rehabilitation Staff) To: YAZ CARO Sent: 01/18/2015 13:51:35 ENRICHMENT TEACHER Subject: RE: MRI Thanks Yaz, I will work on this, I do have to make sure an authorization isn't required by the insurance company, I'm sure it's not. I will then fax the order to [place], you will have to check with them to seeif they will have time to do both scans at that time. I will hopefully get the order finished and faxed this afternoon. Nba Stanley From: YAZ CARO To: Physical Medicine and Rehabilitation Staff Sent: 01/18/2015 1:47:43 PM ([facility]-06:00) Central Time ([place] & [place]) Subject: RE: MRI FridayJanuary 25, at 10:30 at [facility]. Elise Stanley From: NBA BENSON LPN ( Physical Medicine and Rehabilitation Staff) To: YAZ CARO Sent: 01/18/2015 11:44:40 ENRICHMENT TEACHER Subject: MRI Anmolpratibha Mukherjee, Where are you having the MRI next week done at? I will submit the order form, they will contact you directly for scheduling then. ThanksNba LPN Source: [facility] POWERCHART Document Id: [id number] Electronically signed by Priya [facility] Appliance Servicer [id number] at 08/12/2016 3:47 AM CDT Telephone Encounter - Nba Benson - 01/18/2015 1:51 PM CST RE: MRI From: NBA BENSON LPN ( Physical Medicine and Rehabilitation Staff) To: YAZ CARO Sent: 01/18/2015 13:51:35 ENRICHMENT TEACHER Subject: RE: MRI Lizeth Yaz, I will work on this, I do have to make sure an authorization isn't required by the insurance company, I'm sure it's not. I will then fax the order to [place], you will have to check with them to seeif they will have time to do both scans at that time. I will hopefully get the order finished and faxed this afternoon. Thanks, Lacy From: YAZ CARO To: Physical Medicine and Rehabilitation Staff Sent: 01/18/2015 1:47:43 PM ([facility]-06:00) Central Time ([place] & [place]) Subject: RE: MRI FridayJanuary 25, at 10:30 at the [facility]. Elise Stanley From: NBA BENSON LPN ( Physical Medicine and Rehabilitation Staff) To: YAZ CARO Sent: 01/18/2015 11:44:40 ENRICHMENT TEACHER Subject: MRI Tarik Mukherjee, Where are you having the MRI next week done at? I will submit the order form, they will contact you directly for scheduling then. Nba Stanley LPN Source: [facility] Madeleine MarketCHART Document Id: [id number] Telephone Encounter - Nba Benson - 01/18/2015 1:48 PM CST FB MRI Document Contains Addenda Addendum by NBA BENSON LPN on 18 January 2015 14:28:13 ENRICHMENT TEACHER Order faxed. Addendum by SILAS MORENO on 18 January 2015 14:01:29 ENRICHMENT TEACHER From: SILAS MORENO ([facility] Help Desk Technician/Radiology [facility]) To: Physical Medicine and Rehabilitation Staff; Sent: 01/18/2015 14:01:29 ENRICHMENT TEACHER Subject: RE: FB MRI Patient has bcbs cost sharing plan, no prior-auth needed. OK to schedule From: NBA BENSON LPN ( Physical Medicine and Rehabilitation Staff) To: [facility] Help Desk Technician/Radiology [facility]; Sent: 01/18/2015 13:48:56 ENRICHMENT TEACHER Subject: FB MRI Patient Referred to Provider/Facility: [facility] Ordering Provider: [facility] Ordered: MRI Lumbar Spine Diagnosis: low back pain Source: [facility] Made[facility] MarketCHART Document Id: [id number] Electronically signed by Conversion, [facility] Appliance Servicer [id number] at 08/12/2016 3:47 AM CDT Telephone Encounter - Nba Benson - 01/18/2015 11:44 AM CST MRI From: NBA BENSON LPN ( Physical Medicine and Rehabilitation Staff) To: YAZ CARO Sent: 01/18/2015 11:44:40 ENRICHMENT TEACHER Subject: MRI Tarik Mukherjee, Where are you having the MRI next week done at? I will submit the order form, they will contact you directly for scheduling then. Thanks, ALICIA Fang Source: [facility] Document Id: [id number] Electronically signed by Conversion, [facility] Appliance Servicer [id number] at 08/12/2016 3:47 AM CDT Telephone Encounter - Nba Benson - 01/18/2015 7:50 AM CST FW: Follow Up Injection Document Contains Addenda Addendum by YOBANI PADILLA MD on 18 January 2015 11:43:06 ENRICHMENT TEACHER From: YOBANI PADILLA MD To: Physical Medicine and Rehabilitation Staff; YAZ CARO Sent: 01/18/2015 11:43:06 ENRICHMENT TEACHER Subject: RE: Follow Up Injection Ms. Caro, Thank you for the update. I do think it would be reasonable to proceed with an MRI of the lumbar spine. Nba can help coordinate that with you so that it can be performed at the same time as your otherMRI. ThanksGuido From: NBA BENSON LPN ( Physical Medicine and Rehabilitation Staff) To: YOBANI PADILLA MD; Sent: 01/18/2015 07:50:28 ENRICHMENT TEACHER Subject: FW: Follow Up Injection From: YAZ CARO To: Physical Medicine and Rehabilitation Staff Sent: 01/17/2015 9:41:11 PM ([facility]-06:00) Central Time ([place] & [place]) Subject: RE: Follow Up Injection Dear Dr. Padilla Because of breathing difficulties due to muscle weakness, I saw neurologist Dr. Ziggy Cabello in [place] yesterday. He gave me a thorough total exam and suggested I have another MRI done of the lowerspine. He suggested that my continuing hip and muscle pain on the left might be due to a pinched nerve. You can ask [facility] in [place] for a copy of his findings or talk to him directly. I am having an MRI done of the upper spine next Friday. If you order one of the lower spine before then, we can do it all together in one [facility] (or some such). Thank you for your attention to this matter, Yaz Caro From: NBA BENSON LPN ( Physical Medicine and Rehabilitation Staff) To: YAZ CARO Sent: 01/16/2015 07:57:40 ENRICHMENT TEACHER Subject: RE: Follow Up Injection I'm glad to hear that Yaz, I have forwarded the information on to Dr. Padilla as well. Thanks, ALICIA Fang From: YAZ CARO To: Physical Medicine and Rehabilitation Staff Sent: 01/13/2015 05:18 p.m. CDT Subject: RE: Follow Up Injection It helped quite a bit. Made a big difference . Thank you, Yaz From: NBA BENSON LPN ( Physical Medicine and Rehabilitation Staff) To: YAZ CARO Sent: 01/13/2015 10:36:14 CDT Subject: Follow Up Injection Tarik Mukherjee, I am following up in regards to the injection you had on the left hip, how is the area feeling? Did it help? Thanks, Lacy, RESEARCH STAFF MEMBER Source: [facility] Made[facility] MarketCHART Document Id: [id number] Electronically signed by Conversion, [facility] Appliance Servicer [id number] at 08/12/2016 3:47 AM CDT Telephone Encounter - Nba Benson - 01/16/2015 7:57 AM CST RE: Follow Up Injection From: NBA BENSON LPN ( Physical Medicine and Rehabilitation Staff) To: YAZ CARO Sent: 01/16/2015 07:57:40 ENRICHMENT TEACHER Subject: RE: Follow Up Injection I'm glad to hear that Yaz, I have forwarded the information on to Dr. Padilla as well. Nba Stanley LPN From: YAZ CARO To: Physical Medicine and Rehabilitation Staff Sent: 01/13/2015 05:18 p.m. CDT Subject: RE: Follow Up Injection It helped quite a bit. Made a big difference . Thank you, Yaz From: NBA BENSON LPN ( Physical Medicine and Rehabilitation Staff) To: YAZ CARO Sent: 01/13/2015 10:36:14 CDT Subject: Follow Up Injection Tarik Mukherjee, I am following up in regards to the injection you had on the left hip, how is the area feeling? Did it help? Nba Stanley LPN Source: [facility] [employer]CHART Document Id: [id number] Electronically signed by Conversion, [facility] Appliance Servicer [id number] at 08/12/2016 3:47 AM CDT Telephone Encounter - Nba Benson - 01/13/2015 10:36 AM CDT Follow Up Injection From: NBA BENSON LPN ( Physical Medicine and Rehabilitation Staff) To: YAZ CARO Sent: 01/13/2015 10:36:14 CDT Subject: Follow Up Injection Tarik Mukherjee, I am following up in regards to the injection you had on the left hip, how is the area feeling? Did it help? Thanks, ALICIA Fang Source: [facility] POWERCHART Document Id: [id number] Electronically signed by Priya, [facility] Appliance Servicer [id number] at 08/12/2016 3:47 AM CDT Miscellaneous - Yobani Padilla M.D. - 12/29/2014 2:58 PM CDT Ambulatory Patient Summary [address] [id number] Visit Information Name: YAZ MAYERS [facility] Number: [id number] Current Date: 12/29/2014 14:58:18 Physicians Attending Provider: YOBANI PADILLA MD Primary Care Provider: PCP, ELSEWHERE YAZ MAYERS has been given the following list of [...] the Following Medications: Medication list as of 12-29-14 14:58 Attention: If you have any medications at home that are not on this list, DO NOT take them until youcontact your provider for clarification. Give a copy of your medication list to your primary care provider. Update your medication list any time medications or doses are changed and carry your medication list at all times in case of emergency. Electronically Signed By: YOBANI PADILLA MD Signed On:29-DEC-2014 14:57:45 Your Allergies & Intolerances Substance Reaction Symptoms [...] dont have one. Go to [email or web address] and click on Create Your Account. Then, follow the directions to complete the online form. Youll be asked for your [facility] number which you can find at the top of this document. Your Goals/Additional instructions: Source: [facility] POWERCHART Document Id: [id number] Miscellaneous - Yobani Padilla M.D. - 12/29/2014 2:58 PM CDT Ambulatory Discharge Medication List [address] [id number] Visit Information Name: YAZ MAYERS [facility] Number: [id number] Visit Date: 12/29/2014 14:58:16 Attending Provider: YOBANI PADILLA MD Primary Care Provider: PCP, ELSEWHERE NICOLASLuciano YAZ MULTANI has been given the following list of [...] the Following Medications: Medication list as of 12-29-14 14:58 Attention: If you have any medications at home that are not on this list, DO NOT take them until youcontact your provider for clarification. Give a copy of your medication list to your primary care provider. Update your medication list any time medications or doses are changed and carry your medication list at all times in case of emergency. Electronically Signed By: YOBANI PADILLA MD Signed On:29-DEC-2014 14:57:45 Additional Information: Source: [facility] POWERCHART Document Id: [id number] Miscellaneous - Nba Benson - 12/29/2014 2:57 PM CDT Reminder Msg Document Contains Addenda Addendum by NBA BENSON LPN on 16 January 2015 07:57:00 ENRICHMENT TEACHER From: NBA BENSON LPN ( Physical Medicine and Rehabilitation Staff) To: YOBANI PADILLA MD; Sent: 01/16/2015 07:57:00 ENRICHMENT TEACHER Show up: 01/16/2015 07:56:00 ENRICHMENT TEACHER Subject: RE: Reminder Msg Per message back from patient via portal, injection helped. Addendum by NBA BENSON LPN on 13 January 2015 11:01:42 CDT Message sent via portal; pt has upcoming appointment as well. From: NBA BENSON LPN ( Physical Medicine and Rehabilitation Staff) To: Physical Medicine and Rehabilitation Staff; Sent: 12/29/2014 14:57:23 CDT Show up: 01/12/2015 14:57:00 CDT Subject: Reminder Msg Please Remember to: Call to see how pt is doing after left greater troch bursa corticosteroid injection PATIENT: ( ) Call Patient ( ) Ask Patient to ( ) ( ) Call Relative ( ) Schedule Patient ( ) ( ) Call for Buckle Wire Inserter ( ) Follow up on Results ( ) Other: PROVIDER: ( ) Call Physician ( ) Call Pharmacist ( ) Call Lab ( ) Other: Special Instructions: Comments: Source: [facility] Document Id: [id number] Nba Tariq - 12/29/2014 1:57 PM CDT Adult Materials And Corrosion Engineer Intake/History Adult Materials And Corrosion Engineer Intake/History Entered On: 12/29/2014 14:00 CDT Performed On: 12/29/2014 13:57 CDT by NBA BENSON LPN Intake Systolic Blood Pressure : 124 mmHg Diastolic Blood Pressure : 68 mmHg NIBP Mean : 87 mmHg BP Location : Right upper extremity Blood Pressure Cuff Size : Large Actual Weight : 121.5 kg(Converted to: 267 lb 14 oz) Weight Source : Standing scale Dosing Weight Clinic : 121.5 kg NBA BENSON LPN - 12/29/2014 13:57 CDT General Info Information Given By : Patient Preferred Communication Mode : Verbal Languages : Israeli Is Patient Female and 13-50 no hysterectomy : No NBA BENSON LPN - 12/29/2014 13:57 CDT Subjective Pain Symptoms : No NBA BENSON LPN - 12/29/2014 13:57 CDT Dependent Habits Tobacco Use/Currently Using : No Exposure to Tobacco Smoke : Other: never Smoking Status : Never smoker NBA BENSON LPN - 12/29/2014 13:57 CDT Source: [facility] Document Id: [id number] CDT!21 Yobani Brady M.D. - 12/29/2014 12:00 AM CDT [id number] December 29, 2014 [facility] [address] [place] [id number] RE: Yaz Multani : 1955 To Whom It May Concern: Thank you very much for reviewing Ms. Caro's situation. She is a pleasant 59-year-old female who has a past medical history significant for fibromyalgia and diffuse pain. She also has chronic low back pain with known lumbar spondylosis as well as chronic bilateral foot pain. This pain affects Ms. Caro's function and all activities of her life. This pain has persisted for severalyears and as her persistent pain is functionally limiting for her, I am referring her for consideration of being involved in the pain rehabilitation clinic. Thank you very much for reviewing Ms. Caro's situation. Sincerely, Yobani Padilla M.D. Department of Physical Medicine and Rehabilitation [facility] [address] Phone: tc Electronically Signed By: YOBANI PADILLA MD On: 01/02/2015 09:33 AM Modified by and Electronically Signed by: YOBANI PADILLA MD On: 01/02/2015 09:33 AM Source: [facility] MHSDOLBEYNONRADSYS Document Id: [id number] documented in this encounter Plan of Treatment Not on filedocumented as of this encounter Visit Diagnoses Not on filedocumented in this encounter
--- OUTSIDE RECORDS SUMMARY | 2022-01-12 12:41 | XMS_ITS | Encounter Summary ---
:1955 Author Organization [facility] Address [address] [place] [address] Care Team Providers Name Role Phone Unavailable Primary Care Provider Unavailable Encounter Details Date Type Department Care Team Description 07/21/2015 - Hospital Encounter HX RST PMR PT OT Denny Reddy 07/28/2015 L, P.T. [address] [place] [phone] Social History Tobacco Use Types Packs/Day Years [...] do you attend uatsdin or Never 2021 yazdanism services? Do you [...]
--- OUTSIDE RECORDS SUMMARY | 2022-01-12 12:41 | XMS_ITS | Encounter Summary ---
:1955 Author Organization [facility] Address [address] [place] [address] Care Team Providers Name Role Phone Unavailable Primary Care Provider Unavailable Encounter Details Date Type Department Care Team Description 07/24/2015 - Hospital Encounter HX RST PMR PT OT Clare Clay , 07/31/2015 O.T. [address] [facility] [address] [place], [place] [address] (Wo rk) Social History [...] do you attend adventist or Never 2021 episcopalian services? Do you belong to any clubs [...]
--- OUTSIDE RECORDS SUMMARY | 2022-01-12 12:41 | XMS_ITS | Encounter Summary ---
:1955 Author Organization [facility] Address [address] [place] [address] Care Team Providers Name Role Phone Unavailable Primary Care Provider Unavailable Encounter Details Date Type Department Care Team Description 07/24/2015 - Hospital Encounter HX RST PAIN REHAB Keaton Hale 07/31/2015 PSYCH OP P, Ph.D., L.P. [address] [place] [phone] Social History Tobacco Use Types Packs/Day Years [...] do you attend pentecostal or Never 2021 pentecostal services? Do you [...]
--- OUTSIDE RECORDS SUMMARY | 2022-01-12 12:41 | XMS_ITS | Encounter Summary ---
:1955 Author Organization [facility] Address [address] [place] [address] Care Team Providers Name Role Phone Unavailable Primary Care Provider Unavailable Encounter Details Date Type Department Care Team Description 07/25/2015 - Hospital Encounter HX RST PAIN REHAB Vipul Kelly, 08/01/2015 PSYCH OP INHALATION THERAPY AIDE, WAITER/WAITRESS ECONOMY CLASS [address] [place] [address] Social History Tobacco Use Types Packs/Day Years [...] do you attend mosque or Never 2021 sikhism services? Do you [...]
--- OUTSIDE RECORDS SUMMARY | 2022-01-12 12:41 | XMS_ITS | Encounter Summary ---
:1955 Author Organization [facility] Address [address] [place] [address] Care Team Providers Name Role Phone Unavailable Primary Care Provider Unavailable Encounter Details Date Type Department Care Team Description 07/24/2015 - Hospital Encounter HX RST PAIN REHAB Antonio Castro 07/31/2015 PSYCH OP J, Ph.D., L.P. [address] [place] [address] [phone] Social History Tobacco Use Types Packs/Day Years [...] or relatives? How often do you attend taoist or Never 2021 church services? Do you belong to any clubs or Yes 12/12/2021 organizations such as taoist groups, unions, fraternal or athletic groups, or [...]
--- OUTSIDE RECORDS SUMMARY | 2022-01-12 12:41 | XMS_ITS | Encounter Summary ---
:1955 Author Organization [facility] Address [address] [place] [address] Care Team Providers Name Role Phone Unavailable Primary Care Provider Unavailable Encounter Details Date Type Department Care Team Description 05/08/2015 Hospital Encounter HX [facility] Guido Man M.D. [address] [place] [address], [address] [place] [address] (Wo rk) Social History Tobacco [...] do you attend adventist or Never 2021 religion services? Do you [...] Sign Reading Time Taken Comments Blood Pressure 138/74 05/08/2015 2:54 PM COMMERCIAL ROOFER Pulse - - Temperature - - Respiratory Rate - - Oxygen Saturation - - Inhaled Oxygen Concentration - - Weight 120 kg (264 lb 1.8 oz) 05/08/2015 2:54 PM COMMERCIAL ROOFER Height - - Body Mass Index 39.12 11/08/2013 12:47 PM CDT documented in this [...] documented as of this encounter Progress Notes Yboani Man M.D. - 05/08/2015 2:43 PM CST [id number] CHIEF COMPLAINT/REASON FOR VISIT Neck pain, cervical stenosis. HISTORY OF PRESENT ILLNESS Ms. Caro made this appointment today as she had some questions for me with respect to herpain. She is scheduled to be seen in [place] in Neurology on June 04 which I very much appreciate. Ms. Caro reports that she has noted more discomfort again in her neck over the past few weeks. She is not sure if maybe partly she is more aware of things now. She describes this pain as being located in the right and left sides of her neck. She can also feel some achy discomfort in the lower mid cervical spine. The pain is worse if she moves into extension or looks over her right shoulder. Again, she denies any radiating pain to her upper extremities. She again denies any paresthesiasor focal weakness in her upper extremities. She also denies any change in her bowel or bladder habits or fevers or chills. PHYSICAL EXAMINATION GENERAL: Pleasant 59-year-old female in no acute distress. MUSCULOSKELETAL: Spine: -1 globally decreased cervical spine range of motion. Spurling is negative bilaterally. Palpation: There is tenderness to palpation over the bilateral lower cervical paraspinalsas well as the bilateral upper trapezius. NEUROLOGIC: Strength: All major muscle groups of the bilateral upper extremities have normal and symmetric muscle strength, bulk and tone. Reflexes: Bilateral upper and lower extremity muscle stretch reflexes are physiologic and symmetric. Plantar responses downgoing bilaterally. IMPRESSION/REPORT/PLAN 1. Neck pain. 2. Cervical spondylosis. 3. Cervical spinal stenosis. 4. Lumbar spondylosis. 5. Lumbar spinal stenosis. 6. Fibromyalgia. Ms. Caro's neurologic examination is unchanged. I feel that her symptoms are multifactorial as discussed in my notes previously, including a significant component of myofascial pain. With her cervical stenosis, she is scheduled to meet with Neurology at [place] at the end of May, which is exc ellent. PLAN: I am going have Ms. Caro continue with the exercises she was shown on her own independently in physical therapy. She will also continue to use heat which has been very helpful for her.She did talk about meeting with a chiropractor as that has helped her in the past and I feel that would be fine as long as the chiropractor uses the activator and does not perform any cervical manipulation which we discussed and Ms. Caro is also in agreement with. Unfortunately, Ms. Caro has been unable to participate in her aquatic-based rehabilitation program for cardiovascular exercise secondary to a rash that she is following with in Dermatology and that may be part of the reason that she is having increased spasms and so she will have to continue holding off on that at the current time but hopefully, once the rash is resolved, she will be able to return to the pool which has been very beneficial for her in the past. I will plan on following Ms. Caro's consultation with Neurology at [place]. She knows to be in contact with me prior to that time if she notes any worsening or worrisome symptoms which we went over in detail today. Ms. Caro voiced agreement and understanding of this plan. Total time 25 minutes, counseling and coordination of care time greater than 15 minutes. Yobani Man M.D./veena Electronically Signed By: YOBANI MAN MD On: 05/11/2015 09:03 AM Modified by and Electronically Signed by: YOBANI MAN MD On: 05/11/2015 09:03 AM Source: [facility] MHSDOLBEYNONRADSYS Document Id: [id number] ERCIAL ROOFER documented in this encounter Miscellaneous Notes Miscellaneous - Yobani Man M.D. - 05/08/2015 3:48 PM CST Ambulatory Patient Summary [facility] [address] [place] [id number] Visit Information Name: FANTA CARO [facility] Number: [id number] Current Date: 05/08/2015 15:48:36 Physicians Attending Provider: YOBANI MAN MD Primary Care Provider: PCP, ELSEWHERE NICOLASRAMESHMATTSONFANTA SAMANIEGO has been given the following list of [...] the Following Medications: Medication list as of 05-08-15 15:48 Attention: If you have any medications at [...] Electronically Signed By: YOBANI MAN MD Signed On:08-MAY-2015 15:48:13 Your Allergies & Intolerances Substance Reaction Symptoms [...] have one. Go to [email or web address] and click on Create Your Account. Then, follow the directions to complete the online form. Youll be asked for your [facility] number which you can find at the top of this document. Your Goals/Additional instructions: Source: [facility] POWERCHART Document Id: [id number] ERCIAL ROOFER Miscellaneous - Yobani Man M.D. - 05/08/2015 3:48 PM CST Ambulatory Discharge Medication List [address] [id number] Visit Information Name: FANTA CARO [facility] Number: [id number] Visit Date: 05/08/2015 15:48:34 Attending Provider: YOBANI MAN MD Primary Care [...] the Following Medications: Medication list as of 05-08-15 15:48 Attention: If you have any medications at [...] Electronically Signed By: YOBANI MAN MD Signed On:08-MAY-2015 15:48:13 Additional Information: Source: [facility] POWERCHART Document Id: [id number] ERCIAL ROOFER Miscellaneous - Wilda Giraldo LCandyP.N. - 05/08/2015 2:54 PM CST Adult Hose Handler Intake/History Adult Hose Handler Intake/History Entered On: 05/08/2015 14:56 COMMERCIAL ROOFER Performed On: 05/08/2015 14:54 COMMERCIAL ROOFER by WILDA GIRALDO LPN Intake Systolic Blood Pressure : 138 mmHg Diastolic Blood Pressure : 74 mmHg NIBP Mean : 95 mmHg BP Location : Left upper extremity Blood Pressure Cuff Size : Large Actual Weight : 119.8 kg(Converted to: 264 lb 2 oz) Dosing Weight Clinic : 119.8 kg WILDA GIRALDO LPN - 05/08/2015 14:54 COMMERCIAL ROOFER General Info Information Given By : Patient Languages : Bolivian Is Patient Female and 13-50 no hysterectomy : No WILDA GIRALDO LPN - 05/08/2015 14:54 COMMERCIAL ROOFER Subjective Pain Symptoms : No WILDA GIRALDO LPN - 05/08/2015 14:54 COMMERCIAL ROOFER Dependent Habits Exposure to Tobacco Smoke : Other: never Smoking Status : Never smoker Tobacco 2A : No Tobacco Use/Currently Using : No Tobacco Use/Last 30 Days : No Tobacco Use/Last 12 months : No WILDA GIRALDO LPN - 05/08/2015 14:54 COMMERCIAL ROOFER [facility] Document Id: [id number] COMMERCIAL ROOFER!22 ERCIAL ROOFER documented in this encounter Plan of Treatment Not on filedocumented as of this encounter Visit Diagnoses Not on filedocumented in this encounter Additional Health Concerns Assessment Noted Time PHQ-9 Depression Total Score: 4 01/24/2015 6:02 PM COMMERCIAL ROOFER documented as of this encounter
--- OUTSIDE RECORDS SUMMARY | 2022-01-12 12:41 | XMS_ITS | Encounter Summary ---
:1955 Author Organization [facility] Address [address] [place] [address] Care Team Providers Name Role Phone Unavailable Primary Care Provider Unavailable Encounter Details Date Type Department Care Team Description 07/19/2015 - Hospital Encounter HX RST PMR PT OT Jones Hernandez, 07/26/2015 O.T. [address] [place] [address] Social History Tobacco Use Types Packs/Day Years [...] do you attend congregation or Never 2021 orthodoxy services? 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
--- OUTSIDE RECORDS SUMMARY | 2022-01-12 12:41 | XMS_ITS | Encounter Summary ---
:1955 Author Organization [facility] Address [address] [place] [address] Care Team Providers Name Role Phone Unavailable Primary Care Provider Unavailable Encounter Details Date Type Department Care Team Description 07/20/2015 - Hospital Encounter HX RST PMR PT OT Denny Reddy 07/27/2015 L, P.T. [address] [place] [address] Social History Tobacco Use Types Packs/Day Years [...] do you attend confucianism or Never 2021 confucianist services? Do you [...]
--- OUTSIDE RECORDS SUMMARY | 2022-01-12 12:41 | XMS_ITS | Encounter Summary ---
:1955 Author Organization [facility] Address [address] [place] [address] Care Team Providers Name Role Phone Unavailable Primary Care Provider Unavailable Encounter Details Date Type Department Care Team Description 07/21/2015 - Hospital Encounter HX RST PMR PT OT Toby Espinoza da 07/28/2015 Mignon oPlk., O.T., [facility] [address] [place] [phone] Social History Tobacco Use Types Packs/Day Years [...] do you attend yazidi or Never 2021 yazidi services? Do you belong to any clubs or Yes 12/12/2021 organizations such as yazidi groups, unions, fraternal or athletic groups, or [...]
--- OUTSIDE RECORDS SUMMARY | 2022-01-12 12:41 | XMS_ITS | Encounter Summary ---
:1955 Author Organization [facility] Address [address] [place] [id number] Care Team Providers Name Role Phone Unavailable Primary Care Provider Unavailable Encounter Details Date Type Department Care Team Description 07/20/2015 - Hospital Encounter HX RST PHARMACY PT [place], 07/27/2015 EDUC Sherin Polk, Pharm.D., R.Ph. [address] [place] [phone] Social History Tobacco Use Types Packs/Day Years [...] do you attend hinduism or Never 2021 baptist services? Do you [...] CALCIUM CARBONATE/VITAMIN Take 1 tablet by 0 0205/201412/18/2021 D3 (CALCIUM WITH VITAMIN mouth 3 (three) [...]
--- OUTSIDE RECORDS SUMMARY | 2022-01-12 12:41 | XMS_ITS | Encounter Summary ---
:1955 Author Organization [facility] Address [address] [place] [address] Care Team Providers Name Role Phone Unavailable Primary Care Provider Unavailable Encounter Details Date Type Department Care Team Description 07/20/2015 - Hospital Encounter HX RST PAIN REHAB Jesse, 07/27/2015 PSYCH OP Colleen Polk M.D., Ph.D. [address] [place] [phone] Social History Tobacco Use Types Packs/Day Years [...] do you attend hoahaoism or Never 2021 latter day services? Do you belong to any clubs [...]
--- OUTSIDE RECORDS SUMMARY | 2022-01-12 12:41 | XMS_ITS | Encounter Summary ---
:1955 Author Organization [facility] Address [address] [place] [address] Care Team Providers Name Role Phone Unavailable Primary Care Provider Unavailable Encounter Details Date Type Department Care Team Description 07/17/2015 Hospital Encounter HX [facility] Guido Man M.D. [address] [place] [address], [address] [place] [address] (Wo rk) Social History Tobacco [...] do you attend muslim or Never 2021 latter day services? Do [...] Sign Reading Time Taken Comments Blood Pressure 126/72 07/17/2015 2:26 PM CDT Pulse - - Temperature - - Respiratory Rate - - Oxygen Saturation - - Inhaled Oxygen Concentration - - Weight 118 kg (260 lb 5.8 oz) 07/17/2015 2:26 PM CDT Height - - Body Mass Index 38.56 11/08/2013 12:47 PM CDT documented in this [...] encounter Progress Notes Yobani Man M.D. - 07/17/2015 2:15 PM CDT [id number] CHIEF COMPLAINT/REASON FOR VISIT Low back pain and right lateral hip pain. HISTORY OF PRESENT ILLNESS Ms. Caro returns today. I did speak with her on the phone a few weeks ago. At that time she had been experiencing increased discomfort in the right side of her low back and right lateral hipregion. She did meet with her chiropractor, on 1 visit, which she did think was helpful and has continued the exercises she was shown in therapy which she is quite diligent about. She does have pain primarily with standing or walking as well as when she goes from a seated to a standing position as well as when she lies on her right side to sleep. She has been noting some slightly increased paresthesias in her bilateral toes. She had 3 days of left thumb numbness but that has significantly decreased now. PHYSICAL EXAMINATION GENERAL: Pleasant 60-year-old female in no acute distress. MUSCULOSKELETAL: Spine: -1 global decreased lumbar spine range of motion. There is tenderness to palpation of the right lower lumbar paraspinals as well as diffusely in the right gluteal region the most pronounced tenderness to palpation in the right posterior greater trochanteric bursa region. IMPRESSION/REPORT/PLAN 1. Low back pain. 2. Lumbar spondylosis. 3. Lumbar spinal stenosis. 4. Right greater trochanteric pain syndrome. 5. Fibromyalgia. I do feel that Ms. Caro's symptoms are multifactorial. I do feel a significant component of her symptoms are related to right greater trochanteric pain syndrome. PLAN: 1. We are going to proceed today with an ultrasound-guided right greater trochanteric bursa corticosteroid injection. Please see separate note dictated for details of this procedure. 2. I am going have Ms. Caro continue with the exercises she was shown previously in physical therapy. She reported to me that she has been doing her hip abductor strengthening which I commended her on. 3. Ms. Caro is scheduled to begin the [facility] in [place] on Friday, July 18, which I think is excellent, and I commended her on this today and she is excited about this program as well as understandably anxious but I am hopeful that she finds it to be very beneficial. 4. We will plan on being in contact with Ms. Caro in 2 weeks to assess her progress or sooner if she notes any worsening symptoms which we went over in detail today. Ms. Caro voiced agreement and understanding with this plan. Total time 25 minutes, counseling time greater than 15 minutes. Yobani Man M.D./veena Electronically Signed By: YOBANI MAN MD On: 07/19/2015 10:43 AM Modified by and Electronically Signed by: YOBANI MAN MD On: 07/19/2015 10:43 AM Source: [facility] MHSDOLBEYNONRADSYS Document Id: [id number] documented in this encounter Procedure Notes Yobani Man M.D. - 07/17/2015 12:00 AM CDT 1RPT DIAGNOSIS Right greater trochanteric bursitis. HISTORY/INDICATION: Please see my clinical note dated 07/17/2015 for details of the HPI. PROCEDURE PERFORMED: [...] the right gluteus vincenzo and gluteus medius as well as the right greater trochanter was obtained with a 5-1 curvilinear transducer. A preprocedure image was saved to the hard drive. Following this, the area was prepped with a ChloraPrep scrub, then re-examined using the same transducer, a sterile ultrasound transducer cover, and sterile ultrasound transducer gel. Next, 3 mL of 1% [...] lidocaine and 1 mL of 40 mg/mL DepotMedrol was delivered to the target area with real-time ultrasonographic imagin. Then the needle was a dvanced deep to the gluteus medius tendon and [...] 2 weeks to assess her progress. Yobani Man M.D./veena Electronically Signed By: YOBANI MAN MD On: 07/20/2015 11:39 AM Modified by and Electronically Signed by: YOBANI MAN MD On: 07/20/2015 11:39 AM Source: [facility] MHSDOLBEYNONRADSYS Document Id: [id number] documented in this encounter Miscellaneous Notes Miscellaneous - Kate Giraldo, AdityaPCandyN. - 07/17/2015 3:32 PM CDT Reminder Msg Document Contains Addenda Addendum by KATE GIRALDO LPN on August 29, 2015 15:24:26 CDT Patient had an appt yesterday. Addendum by KATE GIRALDO LPN on August 08, 2015 11:18:59 CDT Left message for patient to return call. Addendum by KATE GIRALDO LPN on August 03, 2015 15:02:32 CDT Left message for patient to return call. From: KATE GIRALDO LPN ( Physical Medicine and Rehabilitation Staff) To: Physical Medicine and Rehabilitation Staff; Sent: 07/17/2015 15:32:28 CDT Show up: 07/31/2015 15:32:00 CDT Subject: Reminder Msg Please Remember to: call patient to see how she is doing after right greater troch corticosteroid injection. PATIENT: ( ) Call Patient ( ) Ask Patient to ( ) ( ) Call Relative ( ) Schedule Patient ( ) ( ) Call for Dining Room Manager ( ) Follow up on Results ( ) Other: PROVIDER: ( ) Call Physician ( ) Call Pharmacist ( ) Call Lab ( ) Other: Special Instructions: Comments: Source: [facility] POWERCHART Document Id: [id number] Electronically signed by Priya [facility] Hospitalfl[facility] Screen Printing Loader Unloader [id number] at 08/10/2016 1:26 PM CDT Miscellaneous - Yobani Man M.D. - 07/17/2015 3:15 PM CDT Ambulatory Patient Summary [facility] [address] [place] [id number] Visit Information Name: YAZ CARO [facility] Number: [id number] Current Date: 07/17/2015 15:15:29 Physicians Attending Provider: YOBANI MAN MD Primary [...] the Following Medications: Medication list as of 07-17-15 15:15 Attention: If you have any medications at [...] Electronically Signed By: YOBANI MAN MD Signed On:17-JUL-2015 15:14:57 Your Allergies & Intolerances Substance Reaction Symptoms [...] if you dont have one. Go to [email or web address] and click on Create Your Account. Then, follow the directions to complete the online form. Youll be asked for your [facility] number which you can find at the top of this document. Your Goals/Additional instructions: Source: [facility] POWERCHART Document Id: [id number] Miscellaneous - Yobani Man M.D. - 07/17/2015 3:15 PM CDT Ambulatory Discharge Medication List [address] [id number] Visit Information Name: YAZ CARO [facility] Number: [id number] Visit Date: 07/17/2015 15:15:28 Attending Provider: YOBANI MAN MD Primary Care [...] the Following Medications: Medication list as of 07-17-15 15:15 Attention: If you have any medications at [...] Electronically Signed By: YOBANI MAN MD Signed On:17-JUL-2015 15:14:57 Additional Information: Source: [facility] POWERCHART Document Id: [id number] Miscellaneous - Kate Giraldo, LCandyP.N. - 07/17/2015 2:26 PM CDT Adult Switch House Operator Intake/History Adult Switch House Operator Intake/History Entered On: 07/17/2015 14:27 CDT Performed On: 07/17/2015 14:26 CDT by KATE GIRALDO LPN Intake Systolic Blood Pressure : 126 mmHg Diastolic Blood Pressure : 72 mmHg NIBP Mean : 90 mmHg BP Location : Right upper extremity Blood Pressure Cuff Size : Large Actual Weight : 118.1 kg(Converted to: 260 lb 6 oz) Dosing Weight Clinic : 118.1 kg KATE GIRALDO LPN - 07/17/2015 14:26 CDT General Info Information Given By : Patient Languages : Sierra Leonean Is Patient Female and 13-50 no hysterectomy : No KATE GIRALDO LPN - 07/17/2015 14:26 CDT Subjective Pain Symptoms : No KATE GIRALDO LPN - 07/17/2015 14:26 CDT Dependent Habits Exposure to Tobacco Smoke : Other: never Smoking Status : Never smoker Tobacco 2A : No Tobacco Use/Currently Using : No Tobacco Use/Last 30 Days : No Tobacco Use/Last 12 months : No KATE GIRALDO LPN - 07/17/2015 14:26 CDT Source: [employer] Document Id: [id number] CDT!22 documented in this encounter Plan of Treatment Not on filedocumented as of this encounter Visit Diagnoses Not on filedocumented in this encounter Additional Health Concerns Assessment Noted Time PHQ-9 Depression Total Score: 4 01/24/2015 6: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
--- OUTSIDE RECORDS SUMMARY | 2022-01-12 12:41 | XMS_ITS | Encounter Summary ---
:1955 Author Organization [facility] Address [address] [place] [address] Care Team Providers Name Role Phone Unavailable Primary Care Provider Unavailable Encounter Details Date Type Department Care Team Description 07/21/2015 - Hospital Encounter HX RST PAIN REHAB Kaye Fitzpatrick 07/28/2015 PSYCH OP L, EPIC ANESTHESIA ANALYST, PSYCHIATRIC RN, R. N. [address] PRATHER, [place]var[place] [address] [place], [place] [address] (Wo rk) Social History [...] do you attend mandaen or Never 2021 rastafarian services? Do you [...]
--- OUTSIDE RECORDS SUMMARY | 2022-01-12 12:41 | XMS_ITS | Encounter Summary ---
:[address] [facility] Address [address] [place] [address] Care Team Providers Name Role Phone Unavailable Primary Care Provider Unavailable Encounter Details Date Type Department Care Team Description 07/21/2015 - Hospital Encounter HX RST PAIN REHAB Indy Ramos, 07/28/2015 PSYCH OP WELL TREATMENT OFFSIDER, TOLL TICKET CLERK, D.N.P., M.S.N. [address] [place] [phone] Social History Tobacco Use Types Packs/Day Years [...] do you attend anabaptism or Never 2021 hoahaoism services? Do you [...]
--- OUTSIDE RECORDS SUMMARY | 2022-01-12 12:41 | XMS_ITS | Encounter Summary ---
:1955 Author Organization [facility] Address [address] [place] [address] Care Team Providers Name Role Phone Unavailable Primary Care Provider Unavailable Encounter Details Date Type Department Care Team Description 10/26/2014 Hospital Encounter HX [facility] Guido Man M.D. [address] [place] [address], [address] [place] [address] (Wo rk) Social History Tobacco [...] do you attend mandaeism or Never 2021 spiritism services? Do you [...] Sign Reading Time Taken Comments Blood Pressure 132/78 10/26/2014 10:32 AM CDT Pulse - - Temperature - - Respiratory Rate - - Oxygen Saturation - - Inhaled Oxygen Concentration - - Weight 120 kg (263 lb 14.3 oz) 10/26/2014 10:32 AM CDT Height - - Body Mass Index 39.09 11/08/2013 12:47 PM CDT documented in this [...] encounter Progress Notes Yobani Man M.D. - 10/26/2014 10:12 AM CDT [id number] CHIEF COMPLAINT/REASON FOR VISIT Low back and left lower extremity pain. HISTORY OF PRESENT ILLNESS Ms. Adames returns today. She reports that she has made some progress overall. However she continues to be bothered by pain that is located in the left lateral hip. She describes this as beingpain initiating in the left lateral hip that can radiate into the left lateral thigh to just proximal to the knee. This tends to be worse at night when she is lying on her side or when she has been active during the day. She denies any pain radiating distal to the distal thigh. PHYSICAL EXAMINATION GENERAL: Pleasant 59-year-old female in no acute distress. GAIT: Nonantalgic. IMPRESSION/REPORT/PLAN 1. Left gluteal and lateral thigh pain. 2. Low back pain. 3. Lumbar spondylosis. 4. Fibromyalgia. 5. Left hip pain. 6. Left foot pain. Ms. Adames symptoms and examination are most consistent with a diagnosis of left greater trochanteric pain syndrome as well as a component of left iliotibial band syndrome. PLAN: 1. I am going to have Ms. Adames involved in physical therapy to primarily work on hands-ontechniques to the iliotibial band including myofascial release and Graston, which she has found veryhelpful for her plantar fasciopathy, as well as ultrasound. We will also review her strengthening pro gram with respect to her hip abductors and external rotators. 2. I will plan on seeing Ms. Adames back following physical therapy if she has not noted improvement. She voiced agreement with this plan. Yobani Man M.D./veena Electronically Signed By: YOBANI MAN MD On: 10/27/2014 08:54 AM Modified by and Electronically Signed by: YOBANI MAN MD On: 10/27/2014 08:54 AM Source: [facility] MHSDOLBEYNONRADSYS Document Id: [id number] documented in this encounter Miscellaneous Notes Miscellaneous - Yobani Man M.D. - 10/26/2014 11:01 AM CDT Ambulatory Patient Summary [address] [id number] Visit Information Name: FANTA MAYERS [facility] Number: [id number] Current Date: 10/26/2014 11:01:23 Physicians Attending Provider: YOBANI MAN MD Primary Care Provider: PCP, GABE FANTA MAYERS has been given the following list [...] the Following Medications: Medication list as of 10-26-14 11:01 Attention: If you have any medications at [...] Electronically Signed By: YOBANI MAN MD Signed On:26-OCT-2014 11:00:54 Your Allergies & Intolerances Substance Reaction Symptoms Category Comments penicillins Drug Your Problem List Problem Status Onset Comments No Chronic Problems Active Your Upcoming Appointments Date Time Location Provider 11/28/2014 13:45 [facility] PM&R Yobani Man MD Attention: Contact [...] if you dont have one. Go to [email or web address] and click on Create Your Account. Then, follow the directions to complete the online form. Youll be asked for your [facility] number which you can find at the top of this document. Your Goals/Additional instructions: Source: [facility] POWERCHART Document Id: [id number] Miscellaneous - Yobani Man M.D. - 10/26/2014 11:01 AM CDT Ambulatory Discharge Medication List [address] [id number] Visit Information Name: FANTA MAYERS [facility] Number: [id number] Visit Date: 10/26/2014 11:01:21 Attending Provider: YOBANI MAN MD Primary Care Provider: PCP, ELSEWHERE FANTA MAYERS has been given the following list [...] the Following Medications: Medication list as of 10-26-14 11:01 Attention: If you have any medications at [...] Electronically Signed By: YOBANI MAN MD Signed On:26-OCT-2014 11:00:54 Additional Information: Source: [facility] GlassesOff Document Id: [id number] Miscellaneous - Eitan Almendarez C.MAris - 10/26/2014 10:32 AM CDT 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/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/History Entered On: 10/26/2014 10:33 CDT Performed On: 10/26/2014 10:32 CDT by EITAN ALMENDAREZ Intake Systolic Blood Pressure : 132 mmHg Diastolic Blood Pressure : 78 mmHg NIBP Mean : 96 mmHg BP Location : Left upper extremity Blood Pressure Cuff Size : Large Actual Weight : 119.7 kg(Converted to: 263 lb 14 oz) Weight Source : Standing scale Dosing Weight Clinic : 119.7 kg EITAN ALMENDAREZ - 10/26/2014 10:32 CDT General Info Information Given By : Patient Languages : Amharic Is Patient Female and 13-50 no hysterectomy : No EITAN ALMENDAREZ - 10/26/2014 10:32 CDT Subjective Pain Symptoms : No EITAN ALMENDAREZ - 10/26/2014 10:32 CDT Dependent Habits Tobacco Use/Currently Using : No Exposure to Tobacco Smoke : Other: never Smoking Status : Never smoker EITAN ALMENDAREZ - 10/26/2014 10:32 CDT Source: [facility] Glass[facility] Document Id: [id number] CDT!20 documented in this encounter Plan of Treatment Not on filedocumented as of this encounter Visit Diagnoses Not on filedocumented in this encounter
--- OUTSIDE RECORDS SUMMARY | 2022-01-12 12:42 | XMS_ITS | Encounter Summary ---
:1955 Author Organization [facility] Address [address] [place] [address] Care Team Providers Name Role Phone Unavailable Primary Care Provider Unavailable Encounter Details Date Type Department Care Team Description 03/21/2014 Hospital Encounter HX [facility] Guido Man M.D. [address] [place] [address], [address] [place] [address] (Wo rk) Social History Tobacco [...] do you attend mu-ism or Never 2021 yazidi services? Do you [...] Reading Time Taken Comments Blood Pressure 124/70 03/21/2014 3:47 PM DUCTFIXING PLUMBER Pulse - - Temperature - - Respiratory Rate - - Oxygen Saturation - - Inhaled Oxygen Concentration - - Weight 120 kg (264 lb 8.8 oz) 03/21/2014 3:47 PM DUCTFIXING PLUMBER Height - - Body Mass Index 39.18 11/08/2013 12:47 PM CDT documented in this encounter Medications at Time of Discharge Medication Sig Dispensed Refills Start Date End Date co-enzyme Q-10 (CO Q-10) Take 1 capsule by 0 04/17 100 mg capsule mouth daily. multivitamin tablet Take 1 tablet by 0 04/25/2011 mouth daily. acyclovir (for_ZOVIRAX) Take by mouth as 0 200812/24/2021 200 mg capsule needed. loratadine (for_CLARITIN) Take 1 tablet by 0 /08/200912/27/2021 10 mg tablet mouth daily. quinapril-hydroCHLOROthia Take 1 tablet by 0 /2 08/200907/21/2017 zide (for_ACCURETIC) mouth daily. 20-12.5 mg per tablet valACYclovir (VALTREX) Take 1 tablet by 0 010 06/23/2020 1000 mg tablet mouth as needed. documented as of this encounter Progress Notes Yobani Man M.D. - 03/21/2014 3:27 PM CST [id number] CHIEF COMPLAINT/REASON FOR VISIT Follow up low back pain. New issue of left chest wall pain, left shoulder pain and bilateral foot pain. HISTORY OF PRESENT ILLNESS Ms. Adames returns today in followup. She had right L2-L3 and L3-L4 radiofrequency denervation performed on November 09 and left L2-L3 and L3-L4 facet joint radiofrequency denervation performed at [facility] on November 18 and has found both of these procedures to be very helpful for her. She has been having more discomfort lately in the left low back. She can occasionally have pain that will radiate into the left gluteal region as well. She is having a new issue and that is primarily left chest wall and shoulder pain. She did see Dr. Emery in [place] and had EKG performed as well as laboratory studies but reports that she was given clearance with respect to a cardiac etiology for the pain and was told that it was probably musculoskeletal in nature. She describes this as an achy discomfort that is located in the left side of her chest that extends to the sternum and then pain that she can appreciate in the left anterior lateral shoulder as well as occasionally extend to the left trapezius. She denies any pain radiating distal to the shoulder or any paresthesias in the left upper extremity. The pain is worse with coughing, sneezing, as well as raise her left arm overhead. PHYSICAL EXAMINATION GENERAL: Pleasant 58-year-old female in no acute distress. MUSCULOSKELETAL: Spine: -2 lumbar extension, -1 lumbar flexion. Palpation: There is tenderness to palpation in the left lower lumbar paraspinals. Shoulder: Forward elevation is 160 degrees bilaterally,abduction 160 degrees bilaterally with pain in the mid arc on the left. There is tenderness to palpation in the anterior subacromial space on the left. There is tenderness to palpation in the left upper trapezius and rather diffusely in the left anterior lateral chest wall. IMPRESSION/REPORT/PLAN 1. Low back pain. 2. Lumbar spondylosis. 3. Left chest wall pain. 4. Left shoulder pain. 5. Fibromyalgia. 6. Bilateral foot pain. I do feel that Ms. Jurado chest wall pain is musculoskeletal in nature as Dr. Emery did. Reassuringly, he did perform an EKG and cardiac enzymes and everything checked out with respect to that according to Ms. Adames. I do not have those actual records. Her symptoms do seem cons istent with costochondritis as well as I feel she has probable left shoulder impingement syndrome. Her low back pain is likely multifactorial. She has known multilevel degenerative changes in the lumbar spine. She also has underlying fibromyalgia and has a significant amount of myofascial pain as well. PLAN: 1. I will proceed with x-rays today of the left shoulder with Ms. Bebeto Multani's discomfort. 2. I will likely have her involved in physical therapy with respect to her left shoulder impingementsyndrome. We discussed the rationale for this in detail today. Ms. Adames would be interested in this. I am going to defer that currently until after I have had a chance review her x-rays but likely we will proceed with a comprehensive rehabilitation program with respect to her left shoulder impingement syndrome. 3. I also feel Ms. Adames would benefit from returning to physical therapy with respect to her low back pain and we spent some time discussing this today. She would be open to this as well. 4. I will plan on being in contact with Ms. Adames after her left shoulder x-rays and she knows to be in contact with me prior to that time if she notes any worsening or worrisome symptoms which we went over in detail today. She voiced agreement with this plan. Total time 30 minutes, counseling time 20 minutes. Yobani Man M.D./veena Electronically Signed By: YOBANI MAN MD On: 03/24/2014 01:50 PM Modified by and Electronically Signed by: YOBANI MAN MD On: 03/24/2014 01:50 PM Source: [facility] MHSDOLBEYNONRADSYS Document Id: [id number] FIXING PLUMBER documented in this encounter Miscellaneous Notes Miscellaneous - Yobani Man M.D. - 03/21/2014 4:40 PM CST Ambulatory Patient Summary [address] [id number] Visit Information Name: FANTA MAYERS [facility] Number: [id number] Current Date: 03/21/2014 16:40:21 Physicians Attending Provider: YOBANI MAN MD Primary Care Provider: PCP, ELSEWHERE NICOLASLuciano GALOMULTANIFANTA ASHBY has been given the following list of [...] Take Indications/Special Instructions/Comments/Notes for Patient Medication Changes/Routing *amitriptyline (amitriptyline 50 mg oral tablet) 1 Tablet(s), Oral, once a day (at bedtime) duloxetine (Cymbalta 60 mg oral delayed release capsule) 2 cap, Oral, once a day fluconazole (fluconazole) Oral, once a day folic acid (folic acid 0.8 mg oral tablet) 1 Tablet(s), Oral, once a day hydrochlorothiazide-quinapril (hydrochlorothiazide -quinapril 12.5mg- 20mg) 1 Tablet(s), Oral, once a day ibuprofen (ibuprofen 800 mg oral tablet) 1 Tablet(s), Oral, three times a day Take with food *levOCARNitine (L-Carnitine) lidocaine topical (Lidoderm 5% topical film) [...] 1 cap, Oral, two times a day *tiZANidine (tiZANidine 4 mg oral tablet) 1 Tablet(s), Oral, every 8 hours as needed for Muscle spasm * You have let us know that you are not taking this medication as listed. Please talk with your primary care provider or the health care provider who prescribed the medication as soon as possible. Stop Taking the Following Medications: Medication list as of 03-21-14 16:40 Attention: If you have any medications at [...] Electronically Signed By: YOBANI MAN MD Signed On:21-MAR-2014 16:39:41 Your Allergies & Intolerances Substance Reaction Symptoms Category Comments penicillins Drug Your Problem List Problem Status Onset Comments No Chronic Problems Active Your Upcoming Appointments Date Time Location Provider No Appointments found Attention: Contact your local Clinic if further appointment detail needed. Your Goals/Additional instructions: Source: [facility] POWERCHART Document Id: [id number] FIXING PLUMBER Miscellaneous - Yobani Man M.D. - 03/21/2014 4:40 PM CST Ambulatory Discharge Medication List [address] [id number] Visit Information Name: FANTA MAYERS [facility] Number: [id number] Visit Date: 03/21/2014 16:40:19 Attending Provider: YOBANI MAN MD Primary Care [...] Take Indications/Special Instructions/Comments/Notes for Patient Medication Changes/Routing *amitriptyline (amitriptyline 50 mg oral tablet) 1 Tablet(s), Oral, once a day (at bedtime) duloxetine (Cymbalta 60 mg oral delayed release capsule) 2 cap, Oral, once a day fluconazole (fluconazole) Oral, once a day folic acid (folic acid 0.8 mg oral tablet) 1 Tablet(s), Oral, once a day hydrochlorothiazide-quinapril (hydrochlorothiazide -quinapril 12.5mg- 20mg) 1 Tablet(s), Oral, once a day ibuprofen (ibuprofen 800 mg oral tablet) 1 Tablet(s), Oral, three times a day Take with food *levOCARNitine (L-Carnitine) lidocaine topical (Lidoderm 5% topical film) [...] 1 cap, Oral, two times a day *tiZANidine (tiZANidine 4 mg oral tablet) 1 Tablet(s), Oral, every 8 hours as needed for Muscle spasm * You have let us know that you are not taking this medication as listed. Please talk with your primary care provider or the health care provider who prescribed the medication as soon as possible. Stop Taking the Following Medications: Medication list as of 03-21-14 16:40 Attention: If you have any medications at [...] Electronically Signed By: YOBANI MAN MD Signed On:21-MAR-2014 16:39:41 Additional Information: Source: [facility] POWERCHART Document Id: [id number] FIXING PLUMBER Miscellaneous - Wilda Giraldo L.PCandyN. 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 Intake/History Entered On: 03/21/2014 15:48 DUCTFIXING PLUMBER Performed On: 03/21/2014 15:47 DUCTFIXING PLUMBER by WILDA GIRALDO LPN Intake Systolic Blood Pressure : 124 mmHg Diastolic Blood Pressure : 70 mmHg NIBP Mean : 88 mmHg BP Location : Left upper extremity Blood Pressure Cuff Size : Large Actual Weight : 120.0 kg(Converted to: 264 lb 9 oz) Dosing Weight Clinic : 120 kg WILDA GIRALDO LPN - 03/21/2014 15:47 DUCTFIXING PLUMBER General Info Information Given By : Patient Languages : Bahamian Is Patient Female and 13-50 no hysterectomy : No WILDA GIRALDO LPN - 03/21/2014 15:47 DUCTFIXING PLUMBER Subjective Pain Symptoms : WILDA Lua LPN - 03/21/2014 15:47 DUCTFIXING PLUMBER Dependent Habits Tobacco Use/Currently Using : No Exposure to Tobacco Smoke : Other: never Smoking Status : Never smoker WILDA GIRALDO LPN - 03/21/2014 15:47 DUCTFIXING PLUMBER ID Screen Travel Within Last 21 Days : WILDA Lua LPN - 03/21/2014 15:47 DUCTFIXING PLUMBER Source: [employer] Document Id: [id number] DUCTFIXING PLUMBER!21 FIXING PLUMBER documented in this encounter Plan of Treatment Not on filedocumented as of this encounter Visit Diagnoses Not on filedocumented in this encounter
--- OUTSIDE RECORDS SUMMARY | 2022-01-12 12:42 | XMS_ITS | Encounter Summary ---
:1955 Author Organization [facility] Address [address] [place] [address] Care Team Providers Name Role Phone Unavailable Primary Care Provider Unavailable Encounter Details Date Type Department Care Team Description 03/21/2014 Hospital Encounter HX [facility] Guido Paige M.D. [address] [place] [address], [address] [place] [address] (Wo rk) Social History Tobacco [...] do you attend orthodoxy or Never 2021 catholic services? 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 documented in this encounter Results DX Shoulder Left 2+ Views (03/21/2014 4:59 PM INSIDE SALES ADVERTISING EXECUTIVE) Anatomical Region Laterality Modality Upper Extremity, Shoulder Left Radiographic I maging Specimen (Source) Anatomical Collection Method Collection Time Re ceived Time Location / / Volume Laterality 03/21/2014 4:59 PM INSIDE SALES ADVERTISING EXECUTIVE Addenda Addendum by ProviderKellie M.D. o n 03/21/2014 4:59 PM INSIDE SALES ADVERTISING EXECUTIVE RAD^^^OW XR Shoulder Left 2 or more views 03/21/2014 16:59:04 Addendum by ProviderKellie M.D. o n 03/21/2014 4:59 PM INSIDE SALES ADVERTISING EXECUTIVE RAD^^^MA XR SHOULDER LEFT 2 OR MORE VIEWS 03/21/2014 16:59:04 Impressions 03/21/2014 5:19 PM INSIDE SALES ADVERTISING EXECUTIVE [Left clavicular fracture Narrative 03/21/2014 5:19 PM INSIDE SALES ADVERTISING EXECUTIVE EXAM: XR Shoulder Left 2 or more views INDICATION: shoulder pain COMPARISON: None. FINDINGS: Glenohumeral joint is normal. Comminuted displaced lateral mid shaft clavicular fracture with bridg ing butterfly fragment Procedure Note Jamal Casey D.O. / Provider, Kelly whalen M.D. - 07/24/2016 EXAM: XR Shoulder Left 2 or more views INDICATION: shoulder pain COMPARISON: None. FINDINGS: Glenohumeral joint is normal. Comminuted displaced lateral mid shaft clavicular fracture with bridg ing butterfly fragment IMPRESSION: [Left clavicular fracture Danilo Larios(Manish)(M) IMG DIAGNOSTIC IMAGING PROCE DEB documented in this encounter Visit Diagnoses Not on filedocumented in this encounter
--- OUTSIDE RECORDS SUMMARY | 2022-01-12 12:42 | XMS_ITS | Encounter Summary ---
:1955 Author Organization [facility] Address [address] [place] [address] Care Team Providers Name Role Phone Unavailable Primary Care Provider Unavailable Encounter Details Date Type Department Care Team Description 01/28/2013 Hospital Encounter HX [facility] Guido Man M.D. [address] [place] [address], [address] [place] [address] (Wo rk) Social History Tobacco [...] or relatives? How often do you attend holiness or Never 2021 druze services? Do you belong to any clubs or Yes 12/12/2021 organizations such as holiness groups, unions, fraternal or athletic groups, or [...] Sign Reading Time Taken Comments Blood Pressure 110/60 01/28/2013 1:00 PM TIRE CARE MANAGER Pulse - - Temperature - - Respiratory Rate - - Oxygen Saturation - - Inhaled Oxygen Concentration - - Weight 115 kg (253 lb 1.4 oz) 01/28/2013 1:00 PM TIRE CARE MANAGER Height - - Body Mass Index 37.49 11/13/2012 12:52 PM CDT documented in this encounter Medications [...] encounter Progress Notes Yobani Man M.D. - 01/28/2013 12:50 PM CST [id number] CHIEF COMPLAINT / REASON FOR VISIT Follow-up low back and bilateral lower extremity pain and right greater than left foot pain. HISTORY OF PRESENT ILLNESS Ms. Santamaria returns today. Since I last saw her, she has been receiving ocular care aide as well as scheduled to be in aquatic therapy tomorrow. She reports that she has been improved overall. She did have a flare of her low back pain primarily involving the right side of low back approximately 3 weeks ago and with the use of the ocular care aide that has helped those symptoms. She denies any radiating pain into her lower extremities. She has continued to experience intermittent burning sensation in the bilateral feet that can extend to the distal shins. She has been having more discomfortagain in between second and third metatarsals on the right greater on the left. She has a previous hi story for bilateral second/third intermetatarsal bursa corticosteroid injections which were helpful for a period time. She reports this pain is more prevalent when she walking. She has been sleeping well, Lyrica however, which she is very pleased with. PHYSICAL EXAMINATION GENERAL: Pleasant 57-year-old female in no acute distress. GAIT: Nonantalgic. EXTREMITIES: Strength: All major muscle groups of the bilateral lower extremities have normal and symmetric muscle strength, bulk and tone. Reflexes: Bilateral lower extremity muscle stretch reflexes are physiologic and symmetric. Plantar responses downgoing bilaterally. SPINE: -1 lumbar extension secondary to pain this causes across her low back. There is tenderness topalpation over left and right lower lumbar paraspinals. Foot: There is tenderness to palpation between the second and third metatarsal heads on the right and mild tenderness to palpation between the second and third metatarsal heads on the left. Negative volar sign. IMPRESSION/REPORT/PLAN 1. Low back pain 2. Lumbar spondylosis 3. Lumbar spinal stenosis 4. Right greater than left foot pain 5. Fibromyalgia. Ms. Santamaria's neurologic examination is unchanged. I am pleased with the fact that she is going to be instituting her aquatic exercise program which I think is going to be hopefully excellent for her low back pain as well as I think it would be helpful with her fibromyalgia. PLAN 1. Ms. Santamaria is interested in the repeating the right second-third intermetatarsal bursa corticosteroid injection as she felt this did help her in March. I do think this would be reasonable to perform and please see separate note dictated for details of this procedure. 2. Ms. Santamaria will continue with her Lyrica 150 mg 2 times daily which she finds be helpful. 3. We will plan on being in contact with Ms. Santamaria over the phone in 2 weeks to assess her progress following today's procedure and she knows to be in contact with us prior to that time if shenotes any worsening or worrisome symptoms which we went over in detail today. Ms. Santamaria voiced agreement and understanding with this plan. Total time 30 minutes, counseling time 20 minutes. Yobani Man M.D./madelaine cc: [facility] Electronically Signed By: YOBANI MAN MD On: 02/01/2013 02:42 PM Modified by and Electronically Signed by: YOBANI MAN MD On: 02/01/2013 02:42 PM Source: [facility] MHSDOLBEYNONRADSYS Document Id: [id number] CARE MANAGER documented in this encounter Procedure Notes Yobani Man M.D. - 01/28/2013 12:00 AM CST 1RPT DIAGNOSIS: 1. Right second - third intermetatarsal bursitis 2. Right foot pain. HISTORY/INDICATION: Please see my clinical note dated 01/28/13 for more details of the HPI. PROCEDURE PERFORMED: Ultrasound guided right second-third intermetatarsal bursa corticosteroid injection. PATIENT EDUCATION: Ready to [...] to proceed. Signed informed consent was obtained. DESCRIPTION OF PROCEDURE: Prior to the start of the procedure, a pause was performed to confirm the patient's name, affected area and proposed procedure. The patient was placed in a supine position. Anoptimal ultrasound image of the right second-third intermetatarsal bursa was obtained with a 12-5 linear transducer. A pre-procedure image was saved to the hard drive. Following this, the area was prepped with a ChloraPrep scrub, then re-examined using the same transducer, sterile ultrasound transducer cover and sterile ultrasound transducer gel. Real time ultrasound was utilized to guide a 27 gauge 1 1/4 inch needle into the second-third intermetatarsal bursa region using a dorsal approach in the short axis of the transducer. After visualization of the tip in the target area and negative aspiration for blood, a mixture of 0.5 cc's of 1% Lidocaine and 0.5 cc of 6 mg. per cc of Celestone was delivered to the target area while observing injectate flow with real time ultrasonographic imaging. The injectate was delivered without complications. The patient tolerated the procedure well. She was observed for an appropriate amount of time and discharged under her own power. She was instructed to contact me with any questions pertaining to the injection. She was instructed to use ice over the area of injection and limit activity for the rest of today. ADDITIONAL INSTRUCTIONS: Ms. Santamaria will be in contact with us if she has any difficulty following today's procedure.Otherwise, we will plan on being in contact with her over the phone in two weeks to assess her progress. She voiced agreement and understanding with this plan. Yobani Man M.D./madelaine Electronically Signed By: YOBANI MAN MD On: 02/01/2013 02:41 PM Modified by and Electronically Signed by: YOBANI MAN MD On: 02/01/2013 02:41 PM Source: [facility] MHSDOLBEYNONRADSYS Document Id: [id number] CARE MANAGER documented in this encounter Miscellaneous Notes Miscellaneous - Francoise Avila P.A.-C. - 01/28/2013 3:16 PM CST Reminder Msg Document Contains Addenda Addendum by FRANCOISE AVILA on 19 February 2013 16:32:11 TIRE CARE MANAGER She was busy right now, she will call me back when she has time. Addendum by YOBANI MAN MD on 16 February 2013 08:46:55 TIRE CARE MANAGER From: YOBANI MAN MD To: FRANCOISE AVILA; Sent: 02/16/2013 08:46:55 TIRE CARE MANAGER Show up: 02/16/2013 08:46:00 TIRE CARE MANAGER Subject: RE: Reminder That would be fine. She may be a candidate to have RF performed at different levels based on her pain. Addendum by FRANCOISE AVILA on 15 February 2013 11:22:02 TIRE CARE MANAGER From: FRANCOIES AVILA To: YOBANI MAN MD; Sent: 02/15/2013 11:22:02 TIRE CARE MANAGER Show up: 02/15/2013 11:18:00 TIRE CARE MANAGER Subject: RE: Reminder Msg Mukherjee reports that her right foot is feeling better since the injection. She also states that the left foot is feeling much better as well, so she doesn't want to do that one right now. She had RF done in January in [place] which helped her low back and B leg pain a lot, but she is still bothered by low back pain. She is wondering if she should go to the Pain clinic in [place] for a consult to see what other options there are. From: FRANCOISE AVILA ( Physical Medicine and Rehabilitation Staff) To: FRANCOISE AVILA; Sent: 01/28/2013 15:16:32 TIRE CARE MANAGER Show up: 02/11/2013 15:16:00 TIRE CARE MANAGER Subject: Reminder Please Remember to: see how she is feeling after bursa inj PATIENT: ( ) Call Patient ( ) Ask Patient to ( ) ( ) Call Relative ( ) Schedule Patient ( ) ( ) Call for Museum Registrar ( ) Follow up on Results ( ) Other: PROVIDER: ( ) Call Physician ( ) Call Pharmacist ( ) Call Lab ( ) Other: Special Instructions: Comments: Source: [facility] POWERCHART Document Id: [id number] Electronically signed by Conversion, [facility] Phosphoric Acid Supervisor [id number] at 08/14/2016 1:12 AM CDT Miscellaneous - Yobani Man M.D. - 01/28/2013 2:20 PM CST Ambulatory Patient Summary [place] [facility] [address] [place] [address] Visit Information Name: FANTA SANTAMARIA [facility] Number: [id number] Current Date: 01/28/2013 14:20:50 Physicians Attending Provider: YOBANI MAN MD Primary Care Provider: ELVIA BOND MD FANTA SANTAMARIA has been given the following list of follow-up instructions, medication list, and patient education materials: Follow-up Instructions Your Medications Here is a list of your medications. It is important to take your medications as directed. Use a pillbox or chart to help remind you to take your medications. Please let your doctor or nurse know if you have problems taking your medications. Medication/Strength Dose Route Frequency Indications/Special Instructions/Comments/Notes pregabalin (Lyrica 150 mg oral capsule) 150 mg Oral two times a day amitriptyline (amitriptyline 50 mg oral tablet) 50 mg Oral once a day (at bedtime) *oxycodone (oxycodone 5 mg oral tablet) 10 mg Oral once a day as needed for pain folic acid (folic acid 0.8 mg oral tablet) 0.8 mg Oral once a day omega-3 polyunsaturated fatty acids (omega-3 polyunsaturated fatty acids 1100 mg oral delayed release capsule) 1 tab(s) Oral once a day levOCARNitine (L-Carnitine) multivitamin (multivitamin) ibuprofen (ibuprofen 800 mg oral tablet) 800 mg Oral three times a day Take with food fluconazole (fluconazole) Oral once a day loratadine (loratadine 10 mg oral tablet) 10 mg Oral once a day hydrochlorothiazide-quinapril (hydrochlorothiazide -quinapril 12.5mg- 20mg) 1 tab(s) Oral once a day duloxetine (Cymbalta 60 mg oral delayed release capsule) 120 mg Oral once a day * You have let us know that you are not taking this medication as listed. Please talk with your primary care provider or the health care provider who prescribed the medication as soon as possible. Attention: If you have any medications at home that are not on this list, DO NOT take them until youcontact your provider for clarification. Your Allergies & Intolerances Substance Reaction Symptoms Category Comments penicillins Drug Your Problem List Problem Status Onset Comments No Problems found Your Upcoming Appointments Date Time Location Reason Provider No Appointments found Attention: Contact your local Clinic if further appointment detail needed. Your Goals/Additional instructions: Source: [facility] POWERCHART Document Id: [id number] CARE MANAGER Miscellaneous - Yobani Man M.D. - 01/28/2013 2:20 PM CST [place] [address] Visit Information Name: EMMAFANTA AVERY [facility] Number: [id number] Visit Date: 01/28/2013 14:20:50 Attending Provider: YOBANI MAN MD Primary Care Provider: ELVIA BOND MD, REGINE has been given the following list of medications: Your Medications It is important to take your medications as directed. Use a pill box or chart to help remind you to take your medications. Please let your doctor or nurse know if you have problems taking your medications. Medication/Strength Dose Route Frequency Indications/Special Instructions/Comments/Notes pregabalin (Lyrica 150 mg oral capsule) 150 mg Oral two times a day amitriptyline (amitriptyline 50 mg oral tablet) 50 mg Oral once a day (at bedtime) *oxycodone (oxycodone 5 mg oral tablet) 10 mg Oral once a day as needed for pain folic acid (folic acid 0.8 mg oral tablet) 0.8 mg Oral once a day omega-3 polyunsaturated fatty acids (omega-3 polyunsaturated fatty acids 1100 mg oral delayed release capsule) 1 tab(s) Oral once a day levOCARNitine (L-Carnitine) multivitamin (multivitamin) ibuprofen (ibuprofen 800 mg oral tablet) 800 mg Oral three times a day Take with food fluconazole (fluconazole) Oral once a day loratadine (loratadine 10 mg oral tablet) 10 mg Oral once a day hydrochlorothiazide-quinapril (hydrochlorothiazide -quinapril 12.5mg- 20mg) 1 tab(s) Oral once a day duloxetine (Cymbalta 60 mg oral delayed release capsule) 120 mg Oral once a day * You have let us know that you are not taking this medication as listed. Please talk with your primary care provider or the health care provider who prescribed the medication as soon as possible. Attention: If you have any medications at home that are not on this list, DO NOT take them until youcontact your provider for clarification. Additional Information: Source: [facility] Dragon Ports Document Id: [id number] CARE MANAGER Miscellaneous - Francoise Avila P.A.-C. - 01/28/2013 1:00 PM CST Adult Section Laborer Intake/History Adult Section Laborer Intake/History Entered On: 01/28/2013 13:03 TIRE CARE MANAGER Performed On: 01/28/2013 13:00 TIRE CARE MANAGER by FRANCOISE AVILA Intake Systolic Blood Pressure : 110 mmHg Diastolic Blood Pressure : 60 mmHg NIBP Mean : 77 mmHg BP Location : Right upper extremity Blood Pressure Cuff Size : Large Actual Weight : 114.8 kg(Converted to: 253 lb 1 oz) Weight Source : Standing scale Dosing Weight Clinic : 114.8 kg FRANCOISE AVILA - 01/28/2013 13:00 TIRE CARE MANAGER General Info Information Given By : Patient Preferred Communication Mode : Verbal Languages : Chadian FRANCOISE AVILA - 01/28/2013 13:00 TIRE CARE MANAGER Subjective Pain Symptoms : No FRANCOISE AVILA - 01/28/2013 13:00 TIRE CARE MANAGER Dependent Habits Tobacco Use/Currently Using : No Exposure to Tobacco Smoke : Other: never Smoking Status : Never smoker FRANCOISE AVILA - 01/28/2013 13:00 TIRE CARE MANAGER Source: [facility] Dragon Ports Document Id: [id number] TIRE CARE MANAGER!20 CARE MANAGER documented in this encounter Plan of Treatment Not on filedocumented as of this encounter Visit Diagnoses Not on filedocumented in this encounter
--- OUTSIDE RECORDS SUMMARY | 2022-01-12 12:42 | XMS_ITS | Encounter Summary ---
:1955 Author Organization [facility] Address [address] [place] [address] Care Team Providers Name Role Phone Unavailable Primary Care Provider Unavailable Encounter Details Date Type Department Care Team Description 09/26/2014 Hospital Encounter HX [facility] Guido Paige M.D. [address] [place] [address], [address] [place] [address] (Wo rk) Social History Tobacco [...] Date/Time Associated Diagnosis Comme nts DX FOOT LEFT 3+ Routine 09/26/2014 11:33 AM Resul ts for this VIEWS CDT procedure are i n the results section. documented in this encounter Results DX Foot Left 3+ Views (09/26/2014 11:33 AM CDT) Anatomical Region Laterality Modality Lower Extremity, Foot Left Radiographic Imagi ng Specimen (Source) Anatomical Collection Method Collection Time Re ceived Time Location / / Volume Laterality 09/26/2014 11:33 AM CDT Addenda Addendum by Kellie Navarrete M.D. o n 09/26/2014 11:33 AM CDT RAD^^^OW XR Foot Left 3 or more views 09/26/2014 11:33:16 Addendum by Kellie Navarrete M.D. o n 09/26/2014 11:33 AM CDT RAD^^^MA XR Foot Left 3 or more views 09/26/2014 11:33:16 Impressions 09/26/2014 11:57 AM CDT Negative left foot specifically no abnormality of the third metatarsal is seen. Narrative 09/26/2014 11:57 AM CDT EXAM: XR Foot Left 3 or more views INDICATION: Foot pain primarily involvin g 3rd metatarsal COMPARISON: None. FINDINGS: The bones are intact and show no evidence of fracture or focal destruction. The joint spaces are maintained and no soft tissue abnormality is seen. Procedure Note Enrico Mitchell M.D. / Provider, Natty celestin M.D. - 07/24/2016 EXAM: XR Foot Left 3 or more views INDICATION: Foot pain primarily involvin g 3rd metatarsal COMPARISON: None. FINDINGS: The bones are intact and show no evidence of fracture or focal destruction. The joint spaces are maintained and no soft tissue abnormality is seen. IMPRESSION: Negative left foot specifica lly no abnormality of the third metatarsal is seen. Madyson Larios(R), R.TCandy(R)(M) IM DIAGNOSTIC IMAGING PROCEDURES documented in this encounter Visit Diagnoses Not on filedocumented in this encounter
--- OUTSIDE RECORDS SUMMARY | 2022-01-12 12:42 | XMS_ITS | Encounter Summary ---
:1955 Author Organization [facility] Address [address] [place] [address] Care Team Providers Name Role Phone Unavailable Primary Care Provider Unavailable Encounter Details Date Type Department Care Team Description 06/03/2012 Hospital Encounter HX [facility] Guido Man M.D. [address] [place] [address], [address] [place] [address] (Wo rk) Social History Tobacco [...] do you attend presybeterian or Never 2021 rastafarian services? Do you [...] as needed. documented as of this encounter Miscellaneous Notes Telephone Encounter - Francoise Avila P.A.-C. - 06/11/2012 3:53 PM CDT Phone Message Document Contains Addenda Addendum by FRANCOISE AVILA on 12 June 2012 09:50:46 CDT patient notified Addendum by YOBANI MAN MD on 11 June 2012 16:18:15 CDT From: YOBANI MAN MD To: FRANCOISE AVILA; Sent: 06/11/2012 16:18:15 CDT Subject: RE: Phone Message I would hold off on any chiropractic adjustment at this time as she is improving. Let's give her a few more weeks before performing the EMG because she would have to lie supine on the table for the EMGbut it would be fine to schedule it then. Thanks. From: FRANCOISE AVILA To: YOBANI MAN MD; Sent: 06/11/2012 15:53:48 CDT Subject: Phone Message Caller is: ( ) Patient ( ) Mother ( ) Father ( ) Spouse ( ) Daughter ( ) Son ( ) Pharmacy ( ) Other: Physician: Donovan Patient MRN #: Reason for Call: Yaz's low back pain is improving. It seems to feel like when her sacrum was out of place. When that happened in the past she would go to the chiropractor to get adjustments and it would make it feel better. Can she go to the chiropractor with the ruptured disc in her back? Now thather low back pain is improving, she is noticing the pain in her feet more. She would like to have the EMG test to see if she does have neuropathy and figure out what she should do about that. Message: Advice/Action: Source used: ( ) Verbalizes understanding [...] back cell phone number ( ) Source: [facility] POWERCHART Document Id: [id number] Electronically signed by Conversion, [facility] Sand Mixer Machine [id number] at 08/14/2016 10:40 AM CDT documented in this encounter Plan of Treatment Not on filedocumented as of this encounter Visit Diagnoses Not on filedocumented in this encounter
--- OUTSIDE RECORDS SUMMARY | 2022-01-12 12:42 | XMS_ITS | Encounter Summary ---
:1955 Author Organization [facility] Address [address] [place] [address] Care Team Providers Name Role Phone Unavailable Primary Care Provider Unavailable Encounter Details Date Type Department Care Team Description 06/01/2013 Hospital Encounter HX [facility] Guido Man M.D. [address] [place] [address], [address] [place] [address] (Wo rk) Social History Tobacco [...] do you attend yarsani or Never 2021 methodist services? Do you [...] Sign Reading Time Taken Comments Blood Pressure 122/84 06/01/2013 3:06 PM CDT Pulse - - Temperature - - Respiratory Rate - - Oxygen Saturation - - Inhaled Oxygen Concentration - - Weight 123 kg (270 lb 11.6 oz) 06/01/2013 3:06 PM CDT Height - - Body Mass Index 40.1 11/13/2012 12:52 PM CDT documented in this [...] encounter Progress Notes Yobani Man M.D. - 06/01/2013 2:56 PM CDT [id number] CHIEF COMPLAINT/REASON FOR VISIT Low back pain. HISTORY OF PRESENT ILLNESS Ms. Santamaria is a pleasant 58-year-old female who is seen for a variety of different issues inthe past year. She reports that over the past few months she has had noted more discomfort in her low back/upper gluteal region. It is worse in the left as compared to the right but can involve both sides. She is not having any pain radiating to her hip. She reports this location is different than where she has benefited in the past from bilateral L2-L3 and L3-L4 radiofrequency denervation. The pain is worse when she is standing or walking. It improves when she is sitting or lying supine. She has been using ibuprofen 800 mg 3 times per day. PHYSICAL EXAMINATION GENERAL: Pleasant 58-year-old female in no acute distress. SPINE: -1 lumbar extension secondary to pain this causes in the low back/upper gluteal region. Preserved lumbar flexion today. PALPATION: There is tenderness on palpation of the bilateral sacroiliac joints, greater on the right. There is mild tenderness on palpation over the bilateral lower lumbar paraspinals. EXTREMITIES: All major muscle groups of the bilateral lower extremities have normal and symmetric muscle strength, bulk and tone. IMPRESSION/REPORT/PLAN 1. Low back/upper gluteal region pain. 2. Lumbar spondylosis. 3. Bilateral sacroiliac joint pain. Ms. Santamaria's symptoms are likely multifactorial. She has known multilevel degenerative changes in the lumbar spine including lower lumbar facet arthropathy. PLAN: 1. Ms. Santamaria has been working with her chiropractor but has not found that to be overly helpful. I encouraged her to return to an aquatic exercise program which has always helped her low back pain in the past and she is going to reinitiate this. 2. We did discuss possibility of proceeding with bilateral sacroiliac joint corticosteroid injections to try and help her discomfort as well as allow her to be more active including in the pool and shewould like to proceed with that. We will arrange for this to occur at the first available time. 3. We will plan to make contact with Ms. Santamaria after the bilateral sacroiliac joint corticosteroid injections. She knows she may contact us prior to that time if she notes any worsening or worrisome symptoms which we went over in detail today. She voiced agreement and understanding with this plan. Total time 25 minutes, counseling time 15 minutes. Yobani Man M.D./kuldeep Electronically Signed By: YOBANI MAN MD On: 06/02/2013 05:13 PM Modified by and Electronically Signed by: YOBANI MAN MD On: 06/02/2013 05:13 PM Source: [facility] MHSDOLBEYNONRADSYS Document Id: [id number] documented in this encounter Miscellaneous Notes Miscellaneous - Francoise Avila P.A.-C. - 07/13/2013 9:52 AM CDT Medication Refill Msg Document Contains Addenda Addendum by YOBANI MAN MD on 13 July 2013 10:03:07 CDT Submitted: Order:lidocaine topical (Lidoderm 5% topical film) 1 patch(es) Topical Daily Apply to intact skin and remove patch after a maximum of 12 hr of application within a 24 hr period Qty: 30 patch(es) Refills: 1 Substitutions Allowed Route To Pharmacy - [id number] Signed by YOBANI MAN MD From: FRANCOISE AVILA To: YOBANI MAN MD; Sent: 07/13/2013 09:52:46 CDT Subject: Medication Refill Msg Caller is: ( ) Patient ( ) Mother ( ) Father ( ) Spouse ( ) Daughter ( ) Son ( ) Pharmacy ( ) Other: Provider: [facility] Name of Medications Needing Refill: Lidoderm patches Last Refill Date: Additional Information: She has some left over at her house from the last time they were prescribed.She would like a refill of them. Last / Future Appointment: Disposition: ( ) Send to Pharmacy ( ) Call to Pharmacy ( ) Patient will black pickler Script ( ) Mail Rx to Patient Source: [facility] POWERCHART Document Id: [id number] Electronically signed by Priya [facility] / Operator [id number] at 08/13/2016 10:12 AM CDT Miscellaneous - Francoise Avila P.A.-C. - 06/25/2013 4:05 PM CDT Reminder Msg Document Contains Addenda Addendum by FRANCOISE AVILA on 13 July 2013 09:49:18 CDT faxed to [facility] and patient notified. Addendum by YOBANI MAN MD on 13 July 2013 09:26:54 CDT From: YOBANI MAN MD To: FRANCOISE AVILA; Sent: 07/13/2013 09:26:54 CDT Show up: 07/13/2013 09:26:00 CDT Subject: RE: Reminder Msg Done. Thanks. Addendum by FRANCOISE AVILA on 09 July 2013 16:51:09 CDT From: FRANCOISE AVILA To: YOBANI MAN MD; Sent: 07/09/2013 16:51:09 CDT Show up: 07/09/2013 16:49:00 CDT Subject: RE: Reminder Msg Yaz says that it took about a week for the injection to help, and now the SI joints are feeling very good. She is having some pain in the lumbar disc higher up. She is wondering if you could send a referral for aquatic therapy to [facility]. From: FRANCOISE AVILA ( Physical Medicine and Rehabilitation Staff) To: FRANCOISE AVILA; Sent: 06/25/2013 16:05:37 CDT Show up: 07/09/2013 16:05:00 CDT Subject: Reminder Msg Please Remember to: see how she is feeling after B SI joint injections PATIENT: ( ) Call Patient ( ) Ask Patient to ( ) ( ) Call Relative ( ) Schedule Patient ( ) ( ) Call for Radio Tower Technician ( ) Follow up on Results ( ) Other: PROVIDER: ( ) Call Physician ( ) Call Pharmacist ( ) Call Lab ( ) Other: Special Instructions: Comments: Source: [facility] POWERCHART Document Id: [id number] Electronically signed by Pri[facility] Up / Operator [id number] at 08/13/2016 10:12 AM CDT Miscellaneous - Yobani Man M.D. - 06/01/2013 3:52 PM CDT Ambulatory Patient Summary [address] [id number] Visit Information Name: YAZ SANTAMARIA [facility] Number: [id number] Current Date: 06/01/2013 15:52:27 Physicians Attending Provider: YOBANI MAN MD Primary Care Provider: ELVIA BOND MD EMMAISHYAZ SAMANIEGO has been given the following list [...] a day Take with food levOCARNitine (L-Carnitine) loratadine (loratadine 10 mg oral tablet) 1 Tablet(s), Oral, once a day multivitamin (multivitamin) omega-3 polyunsaturated fatty acids (omega-3 polyunsaturated fatty acids 1100 mg oral delayed release capsule) 1 Tablet(s), Oral, once a day *oxycodone (oxycodone 5 mg oral tablet) 2 Tablet(s), Oral, once a day as needed for pain pregabalin (Lyrica 150 mg oral capsule) 1 cap, Oral, two times a day * You have let us know that you are not taking this medication as listed. Please talk with your primary care provider or the health care provider who prescribed the medication as soon as possible. Stop Taking the Following Medications: Medication list as of 06-01-13 15:52 Attention: If you have any medications at home that are not on this list, DO NOT take them until youcontact your provider for clarification. Give a copy of your medication list to your primary care provider. Update your medication list any time medications or doses are changed and carry your medication list at all times in case of emergency. Your Allergies & Intolerances Substance Reaction Symptoms Category Comments penicillins Drug Your Problem List Problem Status Onset Comments No Problems found Your Upcoming Appointments Date Time Location Reason Provider No Appointments found Attention: Contact your local Clinic if further appointment detail needed. Your Goals/Additional instructions: Source: [facility] POWERCHART Document Id: [id number] Miscellaneous - Yobani Man M.D. - 06/01/2013 3:52 PM CDT Ambulatory Discharge Medication List [address] [id number] Visit Information Name: YAZ SANTAMARIA [facility] Number: [id number] Visit Date: 06/01/2013 15:52:26 Attending Provider: YOBANI MAN MD Primary Care [...] a day Take with food levOCARNitine (L-Carnitine) loratadine (loratadine 10 mg oral tablet) 1 Tablet(s), Oral, once a day multivitamin (multivitamin) omega-3 polyunsaturated fatty acids (omega-3 polyunsaturated fatty acids 1100 mg oral delayed release capsule) 1 Tablet(s), Oral, once a day *oxycodone (oxycodone 5 mg oral tablet) 2 Tablet(s), Oral, once a day as needed for pain pregabalin (Lyrica 150 mg oral capsule) 1 cap, Oral, two times a day * You have let us know that you are not taking this medication as listed. Please talk with your primary care provider or the health care provider who prescribed the medication as soon as possible. Stop Taking the Following Medications: Medication list as of 06-01-13 15:52 Attention: If you have any medications at home that are not on this list, DO NOT take them until youcontact your provider for clarification. Give a copy of your medication list to your primary care provider. Update your medication list any time medications or doses are changed and carry your medication list at all times in case of emergency. Additional Information: Source: [facility] POWERCHART Document Id: [id number] Miscellaneous - Francoise Avila P.A.-C. - 06/01/2013 3:06 PM CDT Adult Grassland Conservationist Intake/History Adult Grassland Conservationist Intake/History Entered On: 06/01/2013 15:07 CDT Performed On: 06/01/2013 15:06 CDT by FRANCOISE AVILA Intake Systolic Blood Pressure : 122 mmHg Diastolic Blood Pressure : 84 mmHg NIBP Mean : 97 mmHg BP Location : Left upper extremity Blood Pressure Cuff Size : Large Actual Weight : 122.8 kg(Converted to: 270 lb 12 oz) Weight Source : Standing scale Dosing Weight Clinic : 122.8 kg FRANCOISE AVILA - 06/01/2013 15:06 CDT General Info Information Given By : Patient Preferred Communication Mode : Verbal Languages : Tajik FRANCOISE AVILA - 06/01/2013 15:06 CDT Subjective Pain Symptoms : No FRANCOISE AVILA - 06/01/2013 15:06 CDT Dependent Habits Tobacco Use/Currently Using : No Exposure to Tobacco Smoke : Other: never Smoking Status : Never smoker FRANCOISE AVILA - 06/01/2013 15:06 CDT Source: [facility] LiveHotSpot Document Id: [id number] CDT!20 documented in this encounter Plan of Treatment Not on filedocumented as of this encounter Visit Diagnoses Not on filedocumented in this encounter
--- OUTSIDE RECORDS SUMMARY | 2022-01-12 12:42 | XMS_ITS | Encounter Summary ---
:1955 Author Organization [facility] Address [address] [place] [address] Care Team Providers Name Role Phone Unavailable Primary Care Provider Unavailable Encounter Details Date Type Department Care Team Description 11/19/2012 Hospital Encounter HX NO MAPPING Social History Tobacco Use Types Packs/Day Years [...] or relatives? How often do you attend confucianist or Never 2021 orthodoxy services? Do you belong to any clubs or Yes 12/12/2021 organizations such as confucianist groups, unions, fraternal or athletic groups, or [...]
--- OUTSIDE RECORDS SUMMARY | 2022-01-12 12:42 | XMS_ITS | Encounter Summary ---
:1955 Author Organization [facility] Address [address] [place] [address] Care Team Providers Name Role Phone Unavailable Primary Care Provider Unavailable Encounter Details Date Type Department Care Team Description 09/09/2013 Hospital Encounter HX [facility] Guido Man M.D. [address] [place] [address], [address] [place] [address] (Wo rk) Social History Tobacco [...] do you attend voodoo or Never 2021 sikhism services? Do you [...] Sign Reading Time Taken Comments Blood Pressure 130/74 09/09/2013 11:16 AM CDT Pulse - - Temperature - - Respiratory Rate - - Oxygen Saturation - - Inhaled Oxygen Concentration - - Weight 121 kg (267 lb 13.7 oz) 09/09/2013 11:16 AM CDT Height - - Body Mass Index 39.67 11/13/2012 12:52 PM CDT documented in this [...] encounter Progress Notes Yobani Man M.D. - 09/09/2013 11:06 AM CDT [id number] CHIEF COMPLAINT/REASON FOR VISIT Followup low back pain. HISTORY OF PRESENT ILLNESS Ms. Santamaria returns today in followup. Since I last saw her, she has been continuing to work with massage therapy as well as reinitiate her aquatic exercise program, which she has found to be very helpful. Also initiated tizanidine for her. She has found that to be helpful as well. She denies any new symptoms since I saw her previously, although. The pain is more confined now to the left side of her low back. This is especially bothersome for her if she bends forward or backward. PHYSICAL EXAMINATION GENERAL: Pleasant 58-year-old female in no acute distress. SPINE: Minus 2 lumbar extension, preserved lumbar flexion today. Tenderness to palpation of the leftlower lumbar paraspinals. IMPRESSION/REPORT/PLAN 1. Low back pain. 2. Lumbar spondylosis. Overall, Ms. Santamaria has made improvement with the tizanidine, massage therapy, and her aquatic exercise program. Her pain is much less diffuse now and is more confined to the left side of her low back. PLAN: 1. Ms. Santamaria is scheduled to go out of town for a few months. She will continue with the current medications she has been using, which have been helpful for her. She does have access to a poolwhere she will be going, which will be excellent so she can continue her aquatic exercise program. 2. With the pain confined out to the left side of her low back, we are going to proceed with left L4-L5 and L5-S1 facet joint corticosteroid injections to try to provider her pain relief. Again, she isgoing to be away for a few months, and she is anxious about how she will do on her own with the painthat she is having now more confined to the left side of her low back. 3. We will be in contact with Ms. Santamaria 2 weeks after the left L4-L5 and L5-S1 facet joint corticosteroid injections, and she knows to be in contact with us prior to that time if she notes anyworsening or worrisome symptoms, which we went over in detail today. Ms. Santamaria voiced agreement and understanding with this plan. Total time 25 minutes, counseling time 15 minutes. Yobani Man M.D./veena Electronically Signed By: YOBANI MAN MD On: 09/15/2013 12:12 PM Modified by and Electronically Signed by: YOBANI MAN MD On: 09/15/2013 12:12 PM Source: [facility] MHSDOLBEYNONRADSYS Document Id: [id number] documented in this encounter Miscellaneous Notes Miscellaneous - Nba Benson - 09/13/2013 4:31 PM CDT Reminder Msg Document Contains Addenda Addendum by YOBANI MAN MD on 01 October 2013 09:49:22 CDT From: YOBANI MAN MD To: Physical Medicine and Rehabilitation Staff; Sent: 10/01/2013 09:49:22 CDT Show up: 10/01/2013 09:49:00 CDT Subject: RE: Reminder Msg Thanks. Addendum by NBA BENSON on 01 October 2013 09:00:41 CDT From: NBA BENSON ( Physical Medicine and Rehabilitation Staff) To: YOBANI MAN MD; Sent: 10/01/2013 09:00:41 CDT Show up: 10/01/2013 09:00:00 CDT Subject: RE: Reminder Msg Spoke with patient, she feels injections have helped, but does have an upcoming appointment in October to discuss other things. From: NBA BENSON ( Physical Medicine and Rehabilitation Staff) To: Physical Medicine and Rehabilitation Staff; Sent: 09/13/2013 16:31:37 CDT Show up: 09/27/2013 16:30:00 CDT Subject: Reminder Msg Please Remember to: Call to see how patient is feeling after L4-5 and L5-S1 injections PATIENT: ( ) Call Patient ( ) Ask Patient to ( ) ( ) Call Relative ( ) Schedule Patient ( ) ( ) Call for Client Support Consultant ( ) Follow up on Results ( ) Other: PROVIDER: ( ) Call Physician ( ) Call Pharmacist ( ) Call Lab ( ) Other: Special Instructions: Comments: Source: [facility] POWERCHART Document Id: [id number] Electronically signed by Priya [facility] Folded Towel Machine Operator [id number] at 08/13/2016 2:29 AM CDT Miscellaneous - Yobani Man M.D. - 09/09/2013 11:49 AM CDT Ambulatory Patient Summary [address] [id number] Visit Information Name: FANTA SANTAMARIA [facility] Number: [id number] Current Date: 09/09/2013 11:49:41 Physicians Attending Provider: YOBANI MAN MD Primary Care Provider: PCP, ELSEWHERE FANTA SANTAMARIA has been given the following [...] 1 cap, Oral, two times a day tiZANidine (tiZANidine 4 mg oral tablet) 1 Tablet(s), Oral, every 8 hours as needed for Muscle spasm Stop Taking the Following Medications: Medication list as of 09-09-13 11:49 Attention: If you have any medications at [...] Electronically Signed By: YOBANI MAN MD Signed On:09-SEP-2013 11:49:14 Your Allergies & Intolerances Substance Reaction Symptoms Category Comments penicillins Drug Your Problem List Problem Status Onset Comments No Chronic Problems Active Your Upcoming Appointments Date Time Location Reason Provider No Appointments found Attention: Contact your local Clinic if further appointment detail needed. Your Goals/Additional instructions: Source: [facility] POWERCHART Document Id: [id number] Miscellaneous - Yobani Man M.D. - 09/09/2013 11:49 AM CDT Ambulatory Discharge Medication List [address] [id number] Visit Information Name: FANTA SANTAMARIA [facility] Number: [id number] Visit Date: 09/09/2013 11:49:38 Attending Provider: YOBANI MAN MD Primary Care Provider: PCP, ELSEWHERE FANTA SANTAMARIA has been given the following [...] 1 cap, Oral, two times a day tiZANidine (tiZANidine 4 mg oral tablet) 1 Tablet(s), Oral, every 8 hours as needed for Muscle spasm Stop Taking the Following Medications: Medication list as of 09-09-13 11:49 Attention: If you have any medications at [...] Electronically Signed By: YOBANI MAN MD Signed On:09-SEP-2013 11:49:14 Additional Information: Source: [facility] POWERCHART Document Id: [id number] Miscellaneous - Nba Benson - 09/09/2013 11:16 AM CDT Adult Oral Hygienist Intake/History Adult Oral Hygienist Intake/History Entered On: 09/09/2013 11:18 CDT Performed On: 09/09/2013 11:16 CDT by NBA BENSON Intake Systolic Blood Pressure : 130 mmHg Diastolic Blood Pressure : 74 mmHg NIBP Mean : 93 mmHg BP Location : Right upper extremity Blood Pressure Cuff Size : Large Actual Weight : 121.5 kg(Converted to: 267 lb 14 oz) Weight Source : Standing scale Dosing Weight Clinic : 121.5 kg NBA BENSON - 09/09/2013 11:16 CDT General Info Information Given By : Patient Preferred Communication Mode : Verbal Languages : Guyanese NBA BENSON - 09/09/2013 11:16 CDT Subjective Pain Symptoms : No NBA BENSON - 09/09/2013 11:16 CDT Dependent Habits Tobacco Use/Currently Using : No Exposure to Tobacco Smoke : Other: never Smoking Status : Never smoker NBA BENSON - 09/09/2013 11:16 CDT [facility] Document Id: [id number] CDT!20 documented in this encounter Plan of Treatment Not on filedocumented as of this encounter Visit Diagnoses Not on filedocumented in this encounter
--- OUTSIDE RECORDS SUMMARY | 2022-01-12 12:42 | XMS_ITS | Encounter Summary ---
:1955 Author Organization [facility] Address [address] [place] [address] Care Team Providers Name Role Phone Unavailable Primary Care Provider Unavailable Encounter Details Date Type Department Care Team Description 11/09/2013 Hospital Encounter HX NO MAPPING Social History [...] do you attend hindu or Never 2021 cheondoism services? Do you belong to any clubs or Yes 12/12/2021 organizations such as hindu groups, unions, fraternal or athletic groups, or [...]
--- OUTSIDE RECORDS SUMMARY | 2022-01-12 12:42 | XMS_ITS | Encounter Summary ---
:1955 Author Organization [facility] Address [address] [place] [address] Care Team Providers Name Role Phone Unavailable Primary Care Provider Unavailable Encounter Details Date Type Department Care Team Description 11/20/2012 Hospital Encounter HX NO MAPPING Social History [...] do you attend episcopalian or Never 2021 presybeterian services? Do you [...]
--- OUTSIDE RECORDS SUMMARY | 2022-01-12 12:42 | XMS_ITS | Encounter Summary ---
:1955 Author Organization [facility] Address [address] [place] [address] Care Team Providers Name Role Phone Unavailable Primary Care Provider Unavailable Encounter Details Date Type Department Care Team Description 11/18/2013 Hospital Encounter HX NO MAPPING Social History [...] do you attend yarsani or Never 2021 christian services? Do you belong to any clubs [...]
--- OUTSIDE RECORDS SUMMARY | 2022-01-12 12:42 | XMS_ITS | Encounter Summary ---
:1955 Author Organization [facility] Address [address] [place] [address] Care Team Providers Name Role Phone Unavailable Primary Care Provider Unavailable Encounter Details Date Type Department Care Team Description 07/10/2012 Hospital Encounter HX [facility] Guido Man M.D. [address] [place] [address], [address] [place] [address] (Wo rk) Social History Tobacco [...] do you attend orthodoxy or Never 2021 mormon services? Do you [...] Sign Reading Time Taken Comments Blood Pressure 122/74 07/10/2012 1:07 PM CDT Pulse - - Temperature - - Respiratory Rate - - Oxygen Saturation - - Inhaled Oxygen Concentration - - Weight 115 kg (253 lb 1.4 oz) 07/10/2012 1:07 PM CDT Height - - Body Mass Index 37.49 12/18/2011 7:09 AM CDT documented in this encounter Medications [...] Telephone Encounter - Francoise Avila P.A.-C. - 10/20/2012 10:47 AM CDT Phone Message Document Contains Addenda Addendum by FRANCOISE AVILA on 20 October 2012 15:20:54 CDT patient notified. Addendum by YOBANI MAN MD on 20 October 2012 11:16:58 CDT From: YOBANI MAN MD To: [facility] Medicine [facility] Rehabilitation Staff; Sent: 10/20/2012 11:16:58 CDT Subject: RE: Phone Message Thanks for letting me know. We will discuss options further after I have a chance to examine her. From: FRANCOISE AVILA ( Physical Medicine and Rehabilitation Staff) To: YOBANI MAN MD; Sent: 10/20/2012 10:47:54 CDT Subject: Phone Message Caller is: ( ) Patient ( ) Mother ( ) Father ( ) Spouse ( ) Daughter ( ) Son ( ) Pharmacy ( ) Other: Physician: Donovan Patient MRN #: Reason for Call: Fanta continues to have pain in her mid-low back which extends to the buttocks. The pain is now into the bilateral anterior thigh region. When she is sitting the pain isn't too bad, but when she stands or walks it is very painful for her. She has an appointment on 10/28 but she is wondering if she should have an MRI prior to that appointment. Message: Advice/Action: Source used: ( ) Verbalizes [...] back cell phone number ( ) Source: [facility] POWERCHART Document Id: [id number] Electronically signed by Priya [facility] Wound Care Specialist [id number] at 08/14/2016 9:47 AM CDT Telephone Encounter - Francoise Avila P.A.-C. - 08/17/2012 11:23 AM CDT Phone Message Document Contains Addenda Addendum by FRANCOISE AVILA on 18 August 2012 08:08:21 CDT Patient notified. Addendum by YOBANI MAN MD on 17 August 2012 16:41:18 CDT From: YOBANI MAN MD To: FRANCOISE AVILA; Sent: 08/17/2012 16:41:18 CDT Subject: RE: Phone Message I am glad that the Lyrica is helping. I have no problem with her seeing her chiropractor. Thanks. From: FRANCOISE AVILA To: YOBANI MAN MD; Sent: 08/17/2012 11:23:34 CDT Subject: Phone Message Caller is: ( ) Patient ( ) Mother ( ) Father ( ) Spouse ( ) Daughter ( ) Son ( ) Pharmacy ( ) Other: Physician: Donovan Patient MRN #: Reason for Call: Fanta has switched to the Lyrica and is doing quite well on that. She does have a new back in the middle of her low back. This pain increases when she moves her left leg, she is wondering if it would be ok for her to visit her chiropractor. Message: Advice/Action: Source used: ( ) Verbalizes [...] back cell phone number ( ) Source: [facility] POWERCHART Document Id: [id number] Electronically signed by Priya, [facility] Wound Care Specialist [id number] at 08/14/2016 9:47 AM CDT Telephone Encounter - Francoise Avila P.A.-C. - 07/21/2012 2:55 PM CDT Phone Message Document Contains Addenda Addendum by YOBANI MAN MD on 21 Jul 2012 15:04:47 CDT From: YOBANI MAN MD To: FRANCOISE AVILA; Sent: 07/21/2012 15:04:47 CDT Subject: RE: Phone Message I think that makes sense. Let's see how things go with her getting used to the Fentanyl patch at thelower dose as she had an increased flare of her pain for a few days after the previous injections sowould not want to have that occur at this time. Thanks. From: FRANCOISE AVILA To: YOBANI MAN MD; Sent: 07/21/2012 14:55:15 CDT Subject: Phone Message Caller is: ( ) Patient ( ) Mother ( ) Father ( ) Spouse ( ) Daughter ( ) Son ( ) Pharmacy ( ) Other: Physician: Donovan Patient MRN #: Reason for Call: Fanta is currently weaning off of the fentanyl patch she was on 50 mcg but now sheis down to 12.5 mcg. The first decrease to 25 mcg was not too bad for her, but this most recent decrease is really affecting her. She feels easily agitated and has been crying a lot. She would like to hold off on the switch to Lyrica right now because she doesn't want to be changing too many medications at one time. She is wondering if there is any other medication other than the Lyrica for her feet.She is also wondering if she can try the injections in her feet again to see if that would help withher pain. Message: Advice/Action: Source used: ( ) Verbalizes [...] back cell phone number ( ) Source: [facility] POWERCHART Document Id: [id number] Electronically signed by Priya [facility] Wound Care Specialist [id number] at 08/14/2016 9:47 AM CDT Telephone Encounter - Yobani Man M.D. - 07/13/2012 12:00 AM CDT [id number] I phoned Ms. Santamaria today to discuss results of her EMG that was performed on July 10. Thisshowed no definitive evidence of a large fiber peripheral neuropathy although her right tibial conduction velocity was very mildly slowed and of uncertain significance as the rest of the nerve conduction studies were normal and the needle examination was normal. I discussed these findings with Ms. Santamaria. I do feel that her symptoms in her feet could represent potentially a small fiber neuropathy and also may be a manifestation potentially of her fibromyalgia and she does have a component ofintermetatarsal bursitis as well. Based on this, I discussed with Ms. Aceves switching her from gabapentin to Lyrica. After mentioning this to Ms. Aceves, I am going to discuss this with her psychiatrist as she started Ms. Santamaria on her gabapentin originally a few years ago. I will then plan on being in contact with Ms. Aceves after I have had a chance to discuss things with her psychiatrist. She voiced agreement and understanding with this plan. Yobani Man M.D./cmt Electronically Signed By: YOBANI MAN MD On: 07/15/2012 10:41 AM Modified by and Electronically Signed by: YOBANI MAN MD On: 07/15/2012 10:41 AM Source: [facility] [id number] Document Id: [id number] Miscellaneous - Yobani Man M.D. - 07/10/2012 2:30 PM CDT [place] [address] Visit Information Name: FANTA SANTAMARIA [facility] Number: [id number] Current Date: 07/10/2012 14:30:52 Physicians Attending Provider: YOBANI MAN MD Primary Care Provider: ELVIA BOND MD Your Medications Here is a list of your medications. It is important to take your medications as directed. Use a pillbox or chart to help remind you to take your medications. Please let your doctor or nurse know if you have problems taking your medications. Medication/Strength Dose Route Frequency Indications/Special Instructions/Comments fentanyl (fentanyl 25 mcg/hr transdermal film, extended release) 1 patch(es) Topical every 72 hours tizanidine (tizanidine 4 mg oral tablet) 4 mg Oral every 8 hours as needed for Muscle spasm hydrOXYzine (hydrOXYzine pamoate 25 mg oral capsule) 25 mg Oral once a day as needed for itching oxycodone (oxycodone 5 mg oral tablet) 10 mg Oral once a day as needed for pain acetaminophen (Tylenol Arthritis Caplet 650 mg oral tablet) 1 tab(s) Oral once a day folic acid (folic acid 0.8 mg oral tablet) 0.8 mg Oral once a day omega-3 polyunsaturated fatty acids (omega-3 polyunsaturated fatty acids 1100 mg oral delayed release capsule) 1 tab(s) Oral once a day levOCARNitine (L-Carnitine) multivitamin (multivitamin) ibuprofen (ibuprofen 800 mg oral tablet) 800 mg Oral three times a day Take with food gabapentin (gabapentin 300 mg oral tablet) 300 mg Oral four times a day fluconazole (fluconazole) Oral once a day loratadine (loratadine 10 mg oral tablet) 10 mg Oral once a day minocycline (minocycline 100 mg oral capsule) 1 cap(s) Oral once a day amitriptyline (amitriptyline 50 mg oral tablet) 1 tab(s) Oral hydrochlorothiazide-quinapril (hydrochlorothiazide -quinapril 12.5mg- 20mg) 1 tab(s) Oral once a day duloxetine (Cymbalta 60 mg oral delayed release capsule) 120 mg Oral once a day Attention: If you have any medications at home that are not on this list, DO NOT take them until youcontact your provider for clarification. Your Allergies & Intolerances Substance Reaction Symptoms Category Comments penicillins Drug Your Problem List Problem Status Onset Comments No Problems found Your Upcoming Appointments Date Time Location Reason Provider No Appointments found Your Goals/Additional instructions: Source: [facility] POWERCHART Document Id: [id number] Miscellaneous - Yobani Man M.D. - 07/10/2012 2:30 PM CDT [place] [address] Visit Information Name: FANTA SANTAMARIA [facility] Number: [id number] Visit Date: 07/10/2012 14:30:51 Attending Provider: YOBANI MAN MD Primary Care [...] your medications. Medication/Strength Dose Route Frequency Indications/Special Instructions/Comments fentanyl (fentanyl 25 mcg/hr transdermal film, extended release) 1 patch(es) Topical every 72 hours tizanidine (tizanidine 4 mg oral tablet) 4 mg Oral every 8 hours as needed for Muscle spasm hydrOXYzine (hydrOXYzine pamoate 25 mg oral capsule) 25 mg Oral once a day as needed for itching oxycodone (oxycodone 5 mg oral tablet) 10 mg Oral once a day as needed for pain acetaminophen (Tylenol Arthritis Caplet 650 mg oral tablet) 1 tab(s) Oral once a day folic acid (folic acid 0.8 mg oral tablet) 0.8 mg Oral once a day omega-3 polyunsaturated fatty acids (omega-3 polyunsaturated fatty acids 1100 mg oral delayed release capsule) 1 tab(s) Oral once a day levOCARNitine (L-Carnitine) multivitamin (multivitamin) ibuprofen (ibuprofen 800 mg oral tablet) 800 mg Oral three times a day Take with food gabapentin (gabapentin 300 mg oral tablet) 300 mg Oral four times a day fluconazole (fluconazole) Oral once a day loratadine (loratadine 10 mg oral tablet) 10 mg Oral once a day minocycline (minocycline 100 mg oral capsule) 1 cap(s) Oral once a day amitriptyline (amitriptyline 50 mg oral tablet) 1 tab(s) Oral hydrochlorothiazide-quinapril (hydrochlorothiazide -quinapril 12.5mg- 20mg) 1 tab(s) Oral once a day duloxetine (Cymbalta 60 mg oral delayed release capsule) 120 mg Oral once a day Attention: If you have any medications at home that are not on this list, DO NOT take them until youcontact your provider for clarification. Additional Information: Source: [facility] [employer]ines Document Id: [id number] Miscellaneous - Francoise Avila P.A.-C. - 07/10/2012 1:07 PM CDT Adult Research Compliance Specialist Intake/History Adult Research Compliance Specialist Intake/History Entered On: 07/10/2012 13:07 CDT Performed On: 07/10/2012 13:07 CDT by FRANCOISE AVILA Intake Systolic Blood Pressure : 122 mmHg Diastolic Blood Pressure : 74 mmHg NIBP Mean : 90 mmHg BP Location : Left upper extremity Blood Pressure Cuff Size : Large Actual Weight : 114.8 kg(Converted to: 253 lb 1 oz) Weight Source : Standing scale Dosing Weight Clinic : 114.8 kg FRANCOISE AVILA - 07/10/2012 13:07 CDT General Info Information Given By : Patient Languages : Togolese FRANCOISE AVILA - 07/10/2012 13:07 CDT Subjective Pain Symptoms : No FRANCOISE AVILA - 07/10/2012 13:07 CDT Dependent Habits Tobacco Use/Currently Using : No Exposure to Tobacco Smoke : Other: never Smoking Status : Never smoker FRANCOISE AVILA - 07/10/2012 13:07 CDT Source: [facility] [employer] Document Id: [id number] CDT!19 documented in this encounter Plan of Treatment Not on filedocumented as of this encounter Visit Diagnoses Not on filedocumented in this encounter
--- OUTSIDE RECORDS SUMMARY | 2022-01-12 12:42 | XMS_ITS | Encounter Summary ---
:1955 Author Organization [facility] Address [address] [place] [address] Care Team Providers Name Role Phone Unavailable Primary Care Provider Unavailable Encounter Details Date Type Department Care Team Description 10/28/2012 Hospital Encounter HX [facility] Guido Padilla M.D. [address] [place] [address], [address] [place] [address] (Wo rk) Social History Tobacco [...] do you attend denominational or Never 2021 pentecostal services? Do you [...] Sign Reading Time Taken Comments Blood Pressure 112/60 10/28/2012 2:08 PM CDT Pulse - - Temperature - - Respiratory Rate - - Oxygen Saturation - - Inhaled Oxygen Concentration - - Weight 115 kg (254 lb 6.6 oz) 10/28/2012 2:08 PM CDT Height - - Body Mass Index 37.68 12/18/2011 7:09 AM CDT documented in this [...] encounter Progress Notes Yobani Padilla M.D. - 10/28/2012 1:39 PM CDT [id number] CHIEF COMPLAINT/REASON FOR VISIT Low back and intermittent bilateral lower extremity pain. HISTORY OF PRESENT ILLNESS Ms. Santamaria returns today. She reports over the past month she has had increase in her low back pain. She describes this pain as being located from the upper portion of her lumbar spine to the upper gluteal region. She can occasionally have pain that will radiate into the bilateral lower extremities and this encompasses the thighs to level the knees when she is ambulating, but the majority of her pain is located in her low back as described above. She denies any paresthesias or focal weaknessin lower extremity, change in bowel or bladder habits, fever or chills, recent unintentional weight loss. She admits she has been under a significant amount of stress as she just placed her hospice. He is in the half-way and she spends several hours each day with him, but this has been understandably very stressful for her. She has been using a Fentanyl patch 25 mcg daily as well as oxycodone as-needed for breakthrough pain but reports she takes this very infrequently. PHYSICAL EXAMINATION GENERAL: Pleasant 57-year-old female in no acute distress. NEUROLOGIC: Oriented to person, place and time. Appropriate mood and affect. STRENGTH: All major muscle groups of the bilateral upper and lower extremities have normal and symmetric muscle strength, bulk and tone. REFLEXES: Lower extremity muscle stretch reflexes are physiologic and symmetric. Plantar responses downgoing bilaterally. SENSATION: Normal pinprick and light touch sensation through lower extremities. Seated straight leg raise is negative for radicular pain or paresthesias bilaterally. SPINE: -2 lumbar extension secondary to pain this causes across low back, with palpation of bilateral lower lumbar paraspinals. IMPRESSION/REPORT/PLAN 1. Low back pain. 2. Lumbar spondylosis. 3. Lumbar spinal stenosis 4. Fibromyalgia. I had a long discussion with Ms. Santamaria. She has a normal neurologic examination. She feels that the symptoms that she is experiencing currently are very similar to the pain that she was havingprevious to her radiofrequency denervation that she had performed to the bilateral L2-L3 and L3-L4 facet joints. PLAN: 1. I am going to refer Ms. Santamaria back to [facility] to see if she would be candidate to repeat the radiofrequency denervation that she had performed to the bilateral to L2-L3 and L3-L4 facet joints. These procedures were performed in November 2011. 2. I am also going to have Ms. Santamaria return to her aquatic exercise program as it has been very helpful for her in the past. I feel that she does have a significant component of myofascial pain as well, especially with the increased stress that she has been under. 3. I will plan to be in contact with Ms. Santamaria after her consultation at [facility] and she knows to be in contact with me prior to that time if she notes any worsening or worrisome symptoms which were detailed today. She voiced agreement and understands this plan. Total time 35 minutes, counseling time 20 minutes. Yobani Padilla M.D./jayy cc: [facility] Denise Bond M.D. [address] [place] [id number] Electronically Signed By: YOBANI PADILLA MD On: 11/03/2012 12:06 PM Modified by and Electronically Signed by: YOBANI PADILLA MD On: 11/03/2012 12:06 PM Source: [facility] MHSDOLBEYNONRADSYS Document Id: [id number] documented in this encounter Miscellaneous Notes Miscellaneous - Ann-Marie De Jesus, R.N. - 03/04/2014 9:02 AM CST *Medication Refill Msg Document Contains Addenda Addendum by ANN-MARIE DE JESUS on 04 March 2014 13:32:58 PUBLIC HEALTH ADVISOR [facility] Addendum by YOBANI PADILLA MD on 04 March 2014 11:32:48 PUBLIC HEALTH ADVISOR From: YOBANI PADILLA MD To: ANN-MARIE DE JESUS; Sent: 03/04/2014 11:32:48 PUBLIC HEALTH ADVISOR Subject: RE: *Medication Refill Msg Please call. Thanks. Addendum by YOBANI PADILLA MD on 04 March 2014 11:32:39 PUBLIC HEALTH ADVISOR Submitted: Order:pregabalin (Lyrica 150 mg oral capsule) 1 cap(s) PO 2xDay Qty: 60 cap(s) Refills: 5 Substitutions Allowed Don't Print - called to pharmacy (Rx) Signed by YOBANI PADILLA MD 03/04/2014 11:32:30 From: ANN-MARIE DE JESUS To: YOBANI PADILLA MD; Sent: 03/04/2014 09:02:25 PUBLIC HEALTH ADVISOR Subject: *Medication Refill Msg Caller is: ( ) Patient ( ) Mother ( ) Father ( ) Spouse ( ) Daughter ( ) Son ( ) Pharmacy ( ) Other: Provider: Pharmacy:[place] [phone] Name of Medications Needing Refill:lyrica - 150mg caps- take one cap po 2 times daily Last Refill Date:02-03-14 #60 Additional Information: Last / Future Appointment: Disposition: ( ) Send to Pharmacy ( ) Call to Pharmacy ( ) Patient will pickler helper Script ( ) Mail Rx to Patient Source: [facility] [employer] Document Id: [id number] Electronically signed by Priya [facility] [employer] [id number] at 08/14/2016 5:12 AM CDT Miscellaneous - Samara Mishra R.N. - 03/09/2013 11:09 AM CST Lyrica Document Contains Addenda Addendum by SAMARA MISHRA on 09 March 2013 11:51:09 PUBLIC HEALTH ADVISOR Medication called into [facility] [phone]... Addendum by YOBANI PADILLA MD on 09 March 2013 11:10:28 PUBLIC HEALTH ADVISOR From: YOBANI PADILLA MD To: SAMARA MISHRA; Sent: 03/09/2013 11:10:28 PUBLIC HEALTH ADVISOR Subject: RE: Lyrica Please call. Thanks. Addendum by YOBANI PADILLA MD on 09 March 2013 11:10:21 PUBLIC HEALTH ADVISOR Submitted: Order:pregabalin (Lyrica 150 mg oral capsule) 1 cap(s) PO 2xDay Qty: 60 cap(s) Refills: 5 Substitutions Allowed Don't Print - called to pharmacy (Rx) Signed by YOBANI PADILLA MD 03/09/2013 11:10:09 From: SAMARA MISHRA To: YOBANI PADILLA MD; Sent: 03/09/2013 11:09:34 PUBLIC HEALTH ADVISOR Subject: Lyrica Caller is: ( ) Patient ( ) Mother ( ) Father ( ) Spouse ( ) Daughter ( ) Son ( [facility] ) Pharmacy ( ) Other: Provider: Guido Padilla Pharmacy: Name of Medications Needing Refill: Lyrica 150 mg Last Refill Date: 02/07/13 qty 60 cap Additional Information: take 1 tab po BID Last / Future Appointment: 01/28/13 Disposition: ( x ) Send to Pharmacy ( ) Call to Pharmacy ( ) Patient will pickler helper Script ( ) Mail Rxto Patient Source: [facility] POWERCHART Document Id: [id number] Electronically signed by Conversion, [facility] [employer] Producer [id number] at 08/14/2016 5:12 AM CDT Miscellaneous - Conversion, Historical Provider Ser - 11/30/2012 8:57 AM CDT Medication Refill Msg Document Contains Addenda Addendum by FRANCOISE NOVOA on 01 December 2012 10:27:03 CDT called to pharmacy. Addendum by YOBANI PADILLA MD on 01 December 2012 10:07:25 CDT From: YOBANI PADILLA MD To: FRANCOISE NOVOA; Sent: 12/01/2012 10:07:25 CDT Subject: FW: Medication Refill Msg Please call. Thanks. Addendum by YOBANI PADILLA MD on 01 December 2012 10:07:13 CDT Submitted: Order:pregabalin (Lyrica 150 mg oral capsule) 1 cap(s) PO 2xDay Qty: 60 cap(s) Refills: 2 Substitutions Allowed Don't Print - called to pharmacy (Rx) Signed by YOBANI PADILLA MD 12/01/2012 10:07:01 From: DONALD RAMIREZ To: YOBANI PADILLA MD; Sent: 11/30/2012 08:57:59 CDT Subject: Medication Refill Msg Caller is: ( ) Patient ( ) Mother ( ) Father ( ) Spouse ( ) Daughter ( ) Son ( ) Pharmacy ( ) Other: Provider: Pharmacy: [facility] fax# [phone] # [phone] Name of Medications Needing Refill: Lyrica 150mg cap Last Refill Date:11/06/12, #60 Additional Information: Last / Future Appointment: 10/28/12 Disposition: ( ) Send to Pharmacy ( ) Call to Pharmacy ( ) Patient will pickler helper Script ( ) Mail Rx to Patient Source: [facility] POWERCHART Document Id: [id number] Miscellaneous - Francoise Novoa P.A.-C. - 11/23/2012 4:00 PM CDT Reminder Msg Document Contains Addenda Addendum by YOBANI PADILLA MD on 04 December 2012 17:28:08 CDT From: YOBANI PADILLA MD To: FRANCOISE NOVOA; Sent: 12/04/2012 17:28:08 CDT Show up: 12/04/2012 17:27:00 CDT Subject: RE: Reminder Msg Thanks for letting me know. Addendum by FRANCOISE NOVOA on 04 December 2012 17:14:18 CDT From: FRANCOISE NOVOA To: YOBANI PADILLA MD; Sent: 12/04/2012 17:14:18 CDT Show up: 12/04/2012 17:13:00 CDT Subject: RE: Reminder Msg Yaz is doing pretty good. She decreased her fentanyl patch and has not had an increase in her pain. From: FRANCOISE NOVOA To: FRANCOISE NOVOA; Sent: 11/23/2012 16:00:03 CDT Show up: 12/04/2012 15:59:00 CDT Subject: Reminder Msg Please Remember to: see how she is feeling after RF PATIENT: ( ) Call Patient ( ) Ask Patient to ( ) ( ) Call Relative ( ) Schedule Patient ( ) ( ) Call for News Intern ( ) Follow up on Results ( ) Other: PROVIDER: ( ) Call Physician ( ) Call Pharmacist ( ) Call Lab ( ) Other: Special Instructions: Comments: Source: [facility] POWERCHART Document Id: [id number] Electronically signed by Priya [facility] [employer] Producer [id number] at 08/14/2016 5:12 AM CDT Telephone Encounter - Francoise Novoa P.A.-C. - 11/23/2012 3:39 PM CDT Phone Message Document Contains Addenda Addendum by FRANCOISE NOVOA on 23 November 2012 16:00:34 CDT patient notified. Addendum by YOBANI PADILLA MD on 23 November 2012 15:48:34 CDT From: YOBANI PADILLA MD To: FRANCOISE NOVOA; Sent: 11/23/2012 15:48:34 CDT Subject: RE: Phone Message It can take a week or longer so I would not get discouraged. Please call her 2 weeks from the procedure to see how she is doing. Thanks. From: FRANCOISE NOVOA To: YOBANI PADILLA MD; Sent: 11/23/2012 15:39:21 CDT Subject: Phone Message Caller is: ( ) Patient ( ) Mother ( ) Father ( ) Spouse ( ) Daughter ( ) Son ( ) Pharmacy ( ) Other: Physician: [facility] Patient MRN #: Reason for Call: Yaz had L L2-3 and L3-4 radiofrequency ablation done on 11/20, she was thinking that she would be pain free by today, and she is not. When is this ablation supposed to start working for her? Message: Advice/Action: Source used: ( ) Verbalizes [...] cell phone number ( ) Source: [facility] POWERCHART Document Id: [id number] Electronically signed by Priya [facility] [employer] Producer [id number] at 08/14/2016 5:12 AM CDT Miscellaneous - Yobani Padilla M.D. - 10/28/2012 2:48 PM CDT Ambulatory [place] [address] Visit Information Name: YAZ SANTAMARIA [facility] Number: [id number] Current Date: 10/28/2012 14:48:28 Physicians Attending Provider: YOBANI PADILLA MD Primary Care Provider: DENISE BOND MD Your Medications Here is a list of your medications. It is important to take your medications as directed. Use a pillbox or chart to help remind you to take your medications. Please let your doctor or nurse know if you have problems taking your medications. Medication/Strength Dose Route Frequency Indications/Special Instructions/Comments/Notes amitriptyline (amitriptyline 50 mg oral tablet) 50 mg Oral once a day (at bedtime) pregabalin (Lyrica 150 mg oral capsule) 150 mg Oral two times a day fentanyl (fentanyl 25 mcg/hr transdermal film, extended release) 1 patch(es) Topical every 72 hours oxycodone (oxycodone 5 mg oral tablet) 10 [...] No Appointments found Your Goals/Additional instructions: Source: [facility] POWERCHART Document Id: [id number] Miscellaneous - Yobani Padilla M.D. - 10/28/2012 2:48 PM CDT Amb[place] [address] Visit Information Name: YAZ SANTAMARIA [facility] Number: [id number] Visit Date: 10/28/2012 14:48:27 Attending Provider: YOBANI PADILLA MD Primary Care Provider: DENISE BOND MD, REGINE has been given the following list of medications: Your Medications It is important to take your medications as directed. Use a pill box or chart to help remind you to take your medications. Please let your doctor or nurse know if you have problems taking your medications. Medication/Strength Dose Route Frequency Indications/Special Instructions/Comments/Notes amitriptyline (amitriptyline 50 mg oral tablet) 50 mg Oral once a day (at bedtime) pregabalin (Lyrica 150 mg oral capsule) 150 mg Oral two times a day fentanyl (fentanyl 25 mcg/hr transdermal film, extended release) 1 patch(es) Topical every 72 hours oxycodone (oxycodone 5 mg oral tablet) 10 [...] provider for clarification. Additional Information: Source: [facility] [employer] Document Id: [id number] Miscellaneous - Conversion, Historical Provider Ser - 10/28/2012 2:08 PM CDT Adult Statistical Reporting Analyst Intake/History Adult Statistical Reporting Analyst Intake/History Entered On: 10/28/2012 14:11 CDT Performed On: 10/28/2012 14:08 CDT by LEELEE PARRA LPN Intake Chief Complaint : lower back pain, 3-06/24, last 2 weeks started having more pain before that no painat all she was off all her pain meds. Systolic Blood Pressure : 112 mmHg Diastolic Blood Pressure : 60 mmHg NIBP Mean : 77 mmHg BP Location : Right upper extremity Blood Pressure Cuff Size : Regular Actual Weight : 115.4 kg(Converted to: 254 lb 7 oz) Weight Source : Standing scale Dosing Weight Clinic : 115.4 kg LEELEE PARRA LPN - 10/28/2012 14:08 CDT General Info Information Given By : Patient Languages : Ugandan LEELEE PARRA LPN - 10/28/2012 14:08 CDT Subjective Pain Symptoms : No LEELEE PARRA LPN - 10/28/2012 14:08 CDT Dependent Habits Tobacco Use/Currently Using : No Exposure to Tobacco Smoke : Other: never Smoking Status : Never smoker LEELEE PARRA LPN - 10/28/2012 14:08 CDT Source: [email or web address] Document Id: [id number] CDT!20 Miscellaneous - Yobani Padilla M.D. - 10/28/2012 12:00 AM CDT [id number] ALEXANDRA HERNANDEZ PA-C October 28, [address] [address] RE: Yaz Santamaria : 1955 Ms. Hernandez: Thank you very much for seeing Yaz Santamaria. She is a pleasant 57-year-old female who has been evaluated [facility] previously. She did have radiofrequency denervation performed to theright L2-L3 and L3-L4 facet joints on December 04, 2011, and the same procedure on the left performed on December 05, 2011, which were very helpful for her pain. Since that time she did have increased low back and left lower extremity pain and had a repeat MRI of her lumbar spine which was performedon May 06, 2012, at [facility] which you will have for your review. 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 She did see Dr. Romano, spine surgeon, at [place] with respect to this. Overall, Ms. Santamaria has made significant improvement with respect to that pain that she was havingat that time, but over the past month has noticed increased pain in her low back which she reports is very similar to the pain she had previous to her radiofrequency denervation performed in November 2011. Based on this, I am referring her to see if she would be a candidate to repeat the radiofrequency denervation to the L2-L3 and L3-L4 facet joints bilaterally. Thank you very much for seeing Ms. Santamaria. Sincerely, Yobani Padilla M.D. Department of Physical Med & Rehab glt Electronically Signed By: YOBANI PADILLA MD On: 10/28/2012 05:01 PM Modified by and Electronically Signed by: YOBANI PADILLA MD On: 10/28/2012 05:01 PM Source: [facility] MHSDOLBEYNONRADSYS Document Id: [id number] documented in this encounter Plan of Treatment Not on filedocumented as of this encounter Visit Diagnoses Not on filedocumented in this encounter
--- OUTSIDE RECORDS SUMMARY | 2022-01-12 12:42 | XMS_ITS | Encounter Summary ---
:1955 Author Organization [facility] Address [address] [place] [address] Care Team Providers Name Role Phone Unavailable Primary Care Provider Unavailable Encounter Details Date Type Department Care Team Description 05/14/2012 Hospital Encounter HX NO MAPPING Social History [...] do you attend taoism or Never 2021 restorationism services? Do you [...]
--- OUTSIDE RECORDS SUMMARY | 2022-01-12 12:42 | XMS_ITS | Encounter Summary ---
:1955 Author Organization [facility] Address [address] [place] [address] Care Team Providers Name Role Phone Unavailable Primary Care Provider Unavailable Encounter Details Date Type Department Care Team Description 06/26/2012 Hospital Encounter HX [facility] Guido Man M.D. [address] [place] [address], [address] [place] [address] (Wo rk) Social History Tobacco [...] do you attend samaritan or Never 2021 mosque services? Do you [...] Reading Time Taken Comments Blood Pressure 124/70 06/26/2012 10:57 AM CDT Pulse - - Temperature - - Respiratory Rate - - Oxygen Saturation - - Inhaled Oxygen Concentration - - Weight 116 kg (254 lb 13.6 oz) 06/26/2012 10:57 AM CDT Height - - Body Mass Index 37.75 12/18/2011 7:09 AM CDT documented in this [...] encounter Progress Notes Yobani Man M.D. - 06/26/2012 10:17 AM CDT [id number] CHIEF COMPLAINT / REASON FOR VISIT Follow-up low back and left lower extremity pain. HISTORY OF PRESENT ILLNESS Ms. Santamaria returns today. Since I last saw her, she has made very good progress. She is having much less discomfort now in her low back. She can occasionally experience pain in her left greater than right lower extremity, but that has also improved. Also the pain now tends to primarily run into the gluteal region and into the posterior thigh and posterior leg to the level of the ankle. It does not dependent and is not dependent on position and can occur at any time. However, it is happeningmuch less frequently than it was previously. She has been able to return home from the [facility] and has initiated physical therapy at [facility] a few days ago. She has been able to walk with awalker and is no longer having to use a wheelchair. She has also been sometimes walking without the walker and has been able to tolerate that well as well. PHYSICAL EXAMINATION GENERAL: Pleasant 57-year-old female in no acute distress. GAIT: Ms. Santamaria is able to walk in the room today without her walker without antalgia. EXTREMITIES: Strength: All major muscle groups of the bilateral lower extremities have normal and symmetric muscle strength, bulk and tone, except for -1 strength with resisted left hip flexion and left knee extension which is limited by pain this causes in the left hip and low back. This is unchangedfrom previously. Reflexes: Patellar tendon -1/-2 (bilateral total knee arthroplasties) Achilles 0/0. IMPRESSION/REPORT/PLAN 1. Low back and intermittent left lower extremity pain 2. MRI evidence for L2-L3 disk herniation Ms. Santamaria has been making excellent progress over the past month. PLAN 1. I am going to have Ms. Santamaria continue working in physical therapy at [facility]. She brought in her exercises today which were reviewed and these look very appropriate. She will continue to advance her current program under the direction of her physical therapist at [facility]. 2. Ms. Santamaria has been able to decrease her Fentanyl patch to 25 mcg from 50 mcg which it was previously under the direction of Dr. Harris which I think is excellent and hope this will continueto be able to be decreased going forward and Ms. Santamaria also voiced agreement with this. 3. Ms. Santamaria will be in contact with us if she notes any worsening or worrisome symptoms. Otherwise, we will plan on seeing her back following the conclusion of physical therapy. She voiced agreement and understanding with this plan. Total time 25 minutes, counseling time 20 minutes. Yobani Man M.D./madelaine Electronically Signed By: YOBANI MAN MD On: 07/07/2012 09:16 AM Modified by and Electronically Signed by: YOBANI MAN MD On: 07/07/2012 09:16 AM Source: [facility] MHSDOLBEYNONRADSYS Document Id: [id number] documented in this encounter Miscellaneous Notes Miscellaneous - Yobani Man M.D. - 06/26/2012 12:00 PM CDT [place] [address] Visit Information Name: FANTA SANTAMARIA [facility] Number: [id number] Current Date: 06/26/2012 12:00:17 Physicians Attending Provider: YOBANI MAN MD Primary Care Provider: ELVIA HARRIS MD Your Medications Here is a list [...] Upcoming Appointments Date Time Location Reason Provider 07/10/2012 13:00 FBCV PM&R EMG Yobani Man MD Your Goals/Additional instructions: Source: [facility] POWERCHART Document Id: [id number] Miscellaneous - Yobani Man M.D. - 06/26/2012 12:00 PM CDT [place] [address] Visit Information Name: FANTA SANTAMARIA [facility] Number: [id number] Visit Date: 06/26/2012 12:00:16 Attending Provider: YOBANI MAN MD Primary Care Provider: ELVIA HARRIS MD, REGINE has been given the following [...] your provider for clarification. Additional Information: Source: [facility] POWERCHART Document Id: [id number] Miscellaneous - Francoise Avila P.A.-C. - 06/26/2012 10:57 AM CDT Adult Recreational Assistant Intake/History Adult Recreational Assistant Intake/History Entered On: 06/26/2012 10:59 CDT Performed On: 06/26/2012 10:57 CDT by FRANCOISE AVILA Intake Systolic Blood Pressure : 124 mmHg Diastolic Blood Pressure : 70 mmHg NIBP Mean : 88 mmHg BP Location : Right upper extremity Blood Pressure Cuff Size : Large Actual Weight : 115.6 kg(Converted to: 254 lb 14 oz) Weight Source : Standing scale Dosing Weight Clinic : 115.6 kg FRANCOISE AVILA - 06/26/2012 10:57 CDT General Info Information Given By : Patient Preferred Communication Mode : Verbal Languages : Swedish FRANCOISE AVILA - 06/26/2012 10:57 CDT Subjective Pain Symptoms : No FRANCOISE AVILA - 06/26/2012 10:57 CDT Dependent Habits Tobacco Use/Currently Using : No Exposure to Tobacco Smoke : Other: never Smoking Status : Never smoker FRANCOISE AVILA - 06/26/2012 10:57 CDT Source: [employer] Document Id: [id number] CDT!20 documented in this encounter Plan of Treatment Not on filedocumented as of this encounter Visit Diagnoses Not on filedocumented in this encounter
--- OUTSIDE RECORDS SUMMARY | 2022-01-12 12:42 | XMS_ITS | Encounter Summary ---
:1955 Author Organization [facility] Address [address] [place] [address] Care Team Providers Name Role Phone Unavailable Primary Care Provider Unavailable Encounter Details Date Type Department Care Team Description 08/24/2014 Hospital Encounter HX [facility] Guido Man M.D. [address] [place] [address], [address] [place] [address] (Wo rk) Social History Tobacco [...] or relatives? How often do you attend lutheran or Never 2021 anabaptism services? Do you belong to any clubs or Yes 12/12/2021 organizations such as lutheran groups, unions, fraternal or athletic groups, or [...] Sign Reading Time Taken Comments Blood Pressure 130/78 08/24/2014 3:03 PM CDT Pulse - - Temperature - - Respiratory Rate - - Oxygen Saturation - - Inhaled Oxygen Concentration - - Weight 120 kg (264 lb 15.9 oz) 08/24/2014 3:03 PM CDT Height - - Body Mass Index 39.25 11/08/2013 12:47 PM CDT documented in this [...] encounter Progress Notes Yobani Man M.D. - 08/24/2014 2:43 PM CDT [id number] CHIEF COMPLAINT/REASON FOR VISIT Low back and left lower extremity pain. HISTORY OF PRESENT ILLNESS Ms. Adames returns today in followup. She had a left L4 transforaminal corticosteroid injection performed, which she reports was very helpful for her. [place] [facility] [place] [facility] [place] [facility]. She did a lot of walking in [place] and then since she has returned earlier this week she has been walking 15 to 20 minutes per day and went to a shopping mall yesterday. She has noted pain in a slightly different location than where she was having previously, as she feels that the epidural was very helpful for her. She has now having discomfort primarily locatedin the left lateral hip, but also in the left gluteal region and occasionally radiating into the posterolateral thigh to the level of the knee. Just recently she has started to notice pain in the left side of her low back as well, but the majority of the pain initially was located in the area described above. Ms. Adames continues to use her Lyrica and oxycodone as needed for her discomfort. PHYSICAL EXAMINATION GENERAL: Pleasant 59-year-old female in no acute distress. GAIT: Antalgic, favoring the left lower extremity, with a Trendelenburg gait on the left. PALPATION: There is tenderness to palpation over the left lower lumbar paraspinals as well as in theleft gluteal region and over the left greater trochanteric bursa region. RANGE OF MOTION: Preserved left hip range of motion. This does cause pain at the end range of motionin her left gluteal region and low back, without any groin pain. STRENGTH: All major muscle groups of the bilateral lower extremities have normal and symmetric muscle strength, bulk and tone except for muscle weakness testing of the left hip abductors. IMPRESSION/REPORT/PLAN 1. Left gluteal and lateral thigh pain. 2. Low back pain. 3. Lumbar spondylosis. 4. Fibromyalgia. Ms. Adames's symptoms and examination are most consistent with a diagnosis of left greater trochanteric pain syndrome. She has been very active, which I commended her on, but I feel that likely with her increased walking that has led to some of these symptoms with her Trendelenburg gait and mild weakness with testing of the left abductors. PLAN: I am going to have Ms. Adames involved in physical therapy at [facility] where she has worked successfully in the past and I gave her a detailed prescription for this today. We are going to work on a comprehensive program including hands-on techniques and modalities including ultrasound as well as I will have the therapist progress to a basic strengthening program especially for the hip abductors and external rotators. Ms. Adames voiced agreement and understanding with this plan. Total time 25 minutes, counseling time greater than 15 minutes. Yobani Man M.D./veena Electronically Signed By: YOBANI MAN MD On: 08/29/2014 09:52 AM Modified by and Electronically Signed by: YOBANI MAN MD On: 08/29/2014 09:52 AM Source: [facility] MHSDOLBEYNONRADSYS Document Id: [id number] documented in this encounter Miscellaneous Notes Miscellaneous - Ann-Marie Jung, RCandyN. - 10/10/2014 11:22 AM CDT *Medication Refill Msg Document Contains Addenda Addendum by ANN-MARIE JUNG on 10 October 2014 16:05:29 CDT called into [facility]. Addendum by YOBANI MAN MD on 10 October 2014 11:38:48 CDT From: YOBANI MAN MD To: ANN-MARIE JUNG; Sent: 10/10/2014 11:38:48 CDT Subject: RE: *Medication Refill Msg Please call. Thanks. Addendum by YOBANI MAN MD on 10 October 2014 11:38:41 CDT Submitted: Order:pregabalin (Lyrica 150 mg oral capsule) 1 cap(s) PO 2xDay Qty: 60 cap(s) Refills: 5 Substitutions Allowed Don't Print - called to pharmacy (Rx) Signed by YOBANI MAN MD 10/10/2014 11:38:31 From: ANN-MARIE JUNG To: YOBANI MAN MD; Sent: 10/10/2014 11:22:12 CDT Subject: *Medication Refill Msg Caller is: ( ) Patient ( ) Mother ( ) Father ( ) Spouse ( ) Daughter ( ) Son ( ) Pharmacy ( ) Other: Provider: Pharmacy:[facility] Name of Medications Needing Refill:lyrica 150mg caps - one cap po twice daily Last Refill Date:09-07-14 #60 Additional Information: Last / Future Appointment:09-26-14 Disposition: ( ) Send to Pharmacy ( ) Call to Pharmacy ( ) 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 - 08/24/2014 3:48 PM CDT Ambulatory Patient Summary [address] [id number] Visit Information Name: YAZ MAYERS [facility] Number: [id number] Current Date: 08/24/2014 15:48:54 Physicians Attending Provider: YOBANI MAN MD Primary Care Provider: PCP, YAZ GILMORE has been given the following list of [...] Tablet(s), Oral, once a day (at bedtime) calcium-vitamin D (Calcium 600+D) 1 Tablet(s), Oral, three times a day duloxetine (Cymbalta 60 mg oral delayed release capsule) 2 cap, Oral, once a day eszopiclone (Lunesta) Oral, once a day (at bedtime) fluconazole (fluconazole) Oral, once a day folic [...] the Following Medications: Medication list as of 08-24-14 15:48 Attention: If you have any medications [...] Electronically Signed By: YOBANI MAN MD Signed On:24-AUG-2014 15:48:21 Your Allergies & Intolerances Substance Reaction Symptoms Category Comments penicillins Drug Your Problem List Problem Status Onset Comments No Chronic Problems Active Your Upcoming Appointments Date Time Location Provider No Appointments found Attention: Contact your local Clinic if further appointment detail needed. Your Goals/Additional instructions: Source: [facility] POWERCHART Document Id: [id number] Miscellaneous - Yobani Man M.D. - 08/24/2014 3:48 PM CDT Ambulatory Discharge Medication List [address] [id number] Visit Information Name: YAZ MAYERS [facility] Number: [id number] Visit Date: 08/24/2014 15:48:52 Attending Provider: YOBANI MAN MD Primary Care Provider: PCP, GABE YAZ MAYERS has been given the following [...] Tablet(s), Oral, once a day (at bedtime) calcium-vitamin D (Calcium 600+D) 1 Tablet(s), Oral, three times a day duloxetine (Cymbalta 60 mg oral delayed release capsule) 2 cap, Oral, once a day eszopiclone (Lunesta) Oral, once a day (at bedtime) fluconazole (fluconazole) Oral, once a day folic [...] the Following Medications: Medication list as of 08-24-14 15:48 Attention: If you have any medications [...] Electronically Signed By: YOBANI MAN MD Signed On:24-AUG-2014 15:48:21 Additional Information: Source: [facility] [employer] Document Id: [id number] Miscellaneous - Nba Benson - 08/24/2014 3:03 PM CDT 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/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/History Entered On: 08/24/2014 15:05 CDT Performed On: 08/24/2014 15:03 CDT by NBA BENSON Intake Systolic Blood Pressure : 130 mmHg Diastolic Blood Pressure : 78 mmHg NIBP Mean : 95 mmHg BP Location : Left upper extremity Actual Weight : 120.2 kg(Converted to: 265 lb 0 oz) Weight Source : Standing scale Dosing Weight Clinic : 120.2 kg NBA BENSON - 08/24/2014 15:03 CDT General Info Information Given By : Patient Preferred Communication Mode : Verbal Languages : Colombian Is Patient Female and 13-50 no hysterectomy : No NBA BENSON - 08/24/2014 15:03 CDT Subjective Pain Symptoms : No NBA BENSON - 08/24/2014 15:03 CDT Dependent Habits Tobacco Use/Currently Using : No Exposure to Tobacco Smoke : Other: never Smoking Status : Never smoker NBA BENSON - 08/24/2014 15:03 CDT [facility] Document Id: [id number] CDT!20 documented in this encounter Plan of Treatment Not on filedocumented as of this encounter Visit Diagnoses Not on filedocumented in this encounter
--- OUTSIDE RECORDS SUMMARY | 2022-01-12 12:42 | XMS_ITS | Encounter Summary ---
:1955 Author Organization [facility] Address [address] [place] [address] Care Team Providers Name Role Phone Unavailable Primary Care Provider Unavailable Encounter Details Date Type Department Care Team Description 07/05/2014 Hospital Encounter HX [facility] Guido Man M.D. [address] [place] [address], [address] [place] [address] (Wo rk) Social History Tobacco [...] do you attend confucianist or Never 2021 presybeterian services? Do you [...] Sign Reading Time Taken Comments Blood Pressure 116/68 07/05/2014 2:32 PM CDT Pulse - - Temperature - - Respiratory Rate - - Oxygen Saturation - - Inhaled Oxygen Concentration - - Weight 117 kg (257 lb 8 oz) 07/05/2014 2:32 PM CDT Height - - Body Mass Index 38.14 11/08/2013 12:47 PM CDT documented in this [...] encounter Progress Notes Yobani Man M.D. - 07/05/2014 2:14 PM CDT [id number] CHIEF COMPLAINT/REASON FOR VISIT Low back and left lower extremity pain. HISTORY OF PRESENT ILLNESS Ms. Adames returns today. She reports that approximately 6 weeks ago, she had the onset of worsening low back pain and pain radiating to her left gluteal region and left lateral and anterior thigh to the level of the knee. The pain can occasionally extend into the anterior leg as well at the level of the midshin although that is not common as the pain usually stops at the knee. She has not noted any new numbness or tingling in the left lower extremity. She does feel that the left lower extremity is weaker than the right and has difficulty lifting it at times. She denies any change in her bowel or bladder habits or fevers or chills. She has been working in physical therapy which she has found to be helpful overall, for many of the areas of her discomfort but not specifically for this pain. PHYSICAL EXAMINATION GENERAL: Pleasant, 59-year-old female in no acute distress. GAIT: Slightly antalgic, favoring the left lower extremity. SPINE: -1 global decreased lumbar spine range of motion. REFLEXES: Bilateral lower extremity muscle stretch reflexes are physiologic and symmetric. STRENGTH: All major muscle groups of the lower extremities have normal and symmetric muscle strength, bulk and tone, except for -1 weakness testing at left hip flexor which is limited by pain. RANGE OF MOTION: Preserved hip range of motion on the left without pain. Stinchfield's causes pain in the left side of her low back. There is no tenderness to palpation directly to the left greater trochanteric bursa region. There is tenderness to palpation along the iliotibial band. IMPRESSION/REPORT/PLAN 1. Low back pain. 2. Left lower extremity pain. 3. Lumbar spondylosis. 4. Fibromyalgia. This is a difficult situation. Ms. Adames does have a normal neurologic examination. 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 Also, she is also tender over the iliotibial band as well. PLAN: 1. With Ms. Adames's new and persistent pain in her left lower extremity, we are going to proceed with an MRI of the lumbar spine. She is scheduled to go on a trip to [facility] in approximately 3 weeks and is apprehensive about being able to go with the current pain that she is having. 2. I would like her to continue working in physical therapy and she has 2 appointments scheduled fornext week. 3. I will plan on contacting Ms. Adames following her lumbar spine MRI. She knows to be in contact with me prior to that time if she notes any worsening or worrisome symptoms which we went over in detail today. She voiced agreement and understanding of this plan. Total time 25 minutes, counseling time 15 minutes. Yobani Man M.D./veena Electronically Signed By: YOBANI MAN MD On: 07/07/2014 09:22 AM Modified by and Electronically Signed by: YOBANI MAN MD On: 07/07/2014 09:22 AM Source: [facility] MHSDOLBEYNONRADSYS Document Id: [id number] documented in this encounter Miscellaneous Notes Miscellaneous - Samara Manjarrez R.N. - 09/06/2014 9:43 AM CDT lyrica Document Contains Addenda Addendum by NBA BENSON on 07 September 2014 08:01:50 CDT Done. Addendum by YOBANI MAN MD on 06 September 2014 10:48:08 CDT From: YOBANI MAN MD To: NBA BENSON; Sent: 09/06/2014 10:48:08 CDT Subject: RE: lyrica Please call. Thanks. Addendum by YOBANI MAN MD on 06 September 2014 10:48:02 CDT Submitted: Order:pregabalin (Lyrica 150 mg oral capsule) 1 cap(s) PO 2xDay Qty: 60 cap(s) Refills: 5 Substitutions Allowed Don't Print - called to pharmacy (Rx) Signed by YOBANI MAN MD 09/06/2014 10:47:53 Addendum by NBA BENSON on 06 September 2014 10:26:32 CDT From: NBA BENSON To: YOBANI MAN MD; Sent: 09/06/2014 10:26:32 CDT Subject: RE: lyrica Spoke with patient, she currently takes 150 mg BID. Addendum by YOBANI MAN MD on 06 September 2014 09:59:02 CDT From: YOBANI MAN MD To: NBA BENSON; Sent: 09/06/2014 09:59:02 CDT Subject: FW: lyrica Can you confirm this dose? Thanks. 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 Thank you, Nba Source: [facility] [employer] Document Id: [id number] Electronically signed by Conversion, [facility] Retail Service Specialist [id number] at 08/11/2016 4:42 PM CDT Miscellaneous - Nba Benson - 07/14/2014 3:15 PM CDT Reminder Msg Document Contains Addenda Addendum by NBA BENSON on 12 Aug 2014 08:02:19 CDT From: NBA BENSON ( Physical Medicine and Rehabilitation Staff) To: YOBANI MAN MD; Sent: 08/12/2014 08:02:19 CDT Show up: 08/12/2014 08:02:00 CDT Subject: RE: Reminder Msg Patient stated injection has helped. Addendum by KATE GIRALDO LPN on 11 Aug 2014 12:54:03 CDT Left message for patient to return call. Addendum by KATE GIRALDO LPN on 04 Aug 2014 10:51:19 CDT Left message for patient to return call. From: NBA BENSON ( Physical Medicine and Rehabilitation Staff) To: Physical Medicine and Rehabilitation Staff; Sent: 07/14/2014 15:15:41 CDT Show up: 07/28/2014 15:15:00 CDT Subject: Reminder Msg Please Remember to: Call to see how pt is doing after Left L4-5 transforaminal corticosteroid injection PATIENT: ( ) Call Patient ( ) Ask Patient to ( ) ( ) Call Relative ( ) Schedule Patient ( ) ( ) Call for Dairy Bacteriologist ( ) Follow up on Results ( ) Other: PROVIDER: ( ) Call Physician ( ) Call Pharmacist ( ) Call Lab ( ) Other: Special Instructions: Comments: Source: [facility] POWERCHART Document Id: [id number] Electronically signed by Conversion, [facility] Retail Service Specialist [id number] at 08/11/2016 4:42 PM CDT Telephone Encounter - Yobani Man M.D. - 07/13/2014 12:00 AM CDT [id number] I spoke with Ms. HaLucianoNerissa on the phone today. She had an MRI performed of her lumbar spine onJuly 08 at [facility]. Significant findings include at L2-L3, there is a disk bulge incombination with facet arthropathy that results in moderate to severe central canal narrowing. Thereis narrowing of the left greater than right subarticular recess. At L3-L4, there is disk bulging andths in combination with facet arthropathy results in moderate central canal narrowing and narrowing of the right subarticular recess. There is multilevel facet arthropathy. I do feel that the symptoms she is experiencing in her left lower extremity are most consistent with L4, and potentially L5, radic ulopathies. She has been involved physical therapy and has not noticed a significant amount of improvement with respect to those symptoms to this point. She is scheduled to leave for [place] on July 23 and is apprehensive about the trip with her discomfort and would like to try to enjoy the trip as much as possible. I think based on her physical examination findings, imaging findings, and lack of response in physical therapy to this point, it would be reasonable to proceed with a left L4 transforaminal epiduralcorticosteroid injection. Ms. Bebeto Multani would like to proceed with this. We will arrange for this to occur at the first available time and will be in contact with her 2 weeks following the procedure. Ms. Adames knows to be in contact with me prior to that time if she notes any worseningor worrisome symptoms, which we went over in detail today. She voiced agreement and understanding ofthis plan. Yobani Man M.D./veena Electronically Signed By: YOBANI MAN MD On: 07/13/2014 05:59 PM Modified by and Electronically Signed by: YOBANI MAN MD On: 07/13/2014 05:59 PM Source: [facility] MHSDOLBEYNONRADSYS Document Id: [id number] Miscellaneous - Yobani Man M.D. - 07/05/2014 3:15 PM CDT Ambulatory Patient Summary [place] [facility] [address] [place], [place] [phone] Visit Information Name: YAZ MAYERS [facility] Number: [id number] Current Date: 07/05/2014 15:15:26 Physicians Attending Provider: YOBANI MAN MD Primary [...] the Following Medications: Medication list as of 07-05-14 15:15 Attention: If you have any medications [...] Electronically Signed By: YOBANI MAN MD Signed On:05-JUL-2014 15:14:48 Your Allergies & Intolerances Substance Reaction Symptoms Category Comments penicillins Drug Your Problem List Problem Status Onset Comments No Chronic Problems Active Your Upcoming Appointments Date Time Location Provider 08/25/2014 14:30 FBCV PM&R Yobani Man MD Attention: Contact your local Clinic if further appointment detail needed. Your Goals/Additional instructions: Source: [facility] POWERCHART Document Id: [id number] Miscellaneous - Yobani Man M.D. 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/History 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 Intake/History Entered On: 07/05/2014 14:33 CDT Performed On: 07/05/2014 14:32 CDT by NBA BENSON Intake Systolic Blood Pressure : 116 mmHg Diastolic Blood Pressure : 68 mmHg NIBP Mean : 84 mmHg BP Location : Left upper extremity Blood Pressure Cuff Size : Regular Actual Weight : 116.8 kg(Converted to: 257 lb 8 oz) Weight Source : Standing scale Dosing Weight Clinic : 116.8 kg NBA BENSON - 07/05/2014 14:32 CDT General Info Information Given By : Patient Preferred Communication Mode : Verbal Languages : [place] Islander Is Patient Female and 13-50 no hysterectomy : NBA Covington - 07/05/2014 14:32 CDT Subjective Pain Symptoms : NBA Covington - 07/05/2014 14:32 CDT Dependent Habits Tobacco Use/Currently Using : No Exposure to Tobacco Smoke : Other: never Smoking Status : Never smoker NBA BENSON - 07/05/2014 14:32 CDT ID Screen Drug Resistant Organism : No Travel Within Last 21 Days : No Contact with someone with Ebola : NBA Covington - 07/05/2014 14:32 CDT Source: [facility] POWERCHART Document Id: [id number] CDT!25 documented in this encounter Plan of Treatment Not on filedocumented as of this encounter Visit Diagnoses Not on filedocumented in this encounter
--- OUTSIDE RECORDS SUMMARY | 2022-01-12 12:42 | XMS_ITS | Encounter Summary ---
:1955 Author Organization [facility] Address [address] [place] [address] Care Team Providers Name Role Phone Unavailable Primary Care Provider Unavailable Encounter Details Date Type Department Care Team Description 09/26/2014 Hospital Encounter HX [facility] Guido Paige M.D. [address] [place] [address], [address] [place] [address] (Wo rk) Social History Tobacco [...] do you attend druze or Never 2021 church services? Do you [...] Priority Date/Time Associated Diagnosis Comme nts DX HIP AND PELVIS Routine 09/26/2014 11:33 AM Res ults for this LEFT 1 VIEW CDT procedure are i n the results section. documented in this encounter Results DX Hips And Pelvis Left 1 View (09/26/2014 11:33 AM CDT) Anatomical Region Laterality Modality Lower Extremity, Pelvis, Hip Left Radiographi c Imaging Specimen (Source) Anatomical Collection Method Collection Time Re ceived Time Location / / Volume Laterality 09/26/2014 11:33 AM CDT Addenda Addendum by ProviderKellie M.D. o n 09/26/2014 11:33 AM CDT RAD^^^OW XR Pelvis Hip Left 1 view 09/26/2014 11:33:16 Addendum by ProviderKellie M.D. o n 09/26/2014 11:33 AM CDT RAD^^^MA XR PELVIS HIP LEFT 1 VIEW 09/26/2014 11:33:16 Impressions 09/26/2014 11:57 AM CDT Negative pelvis and left hip. Narrative 09/26/2014 11:57 AM CDT EXAM: XR Pelvis Hip Left 1 view INDICATION: hip pain COMPARISON: None. FINDINGS: The bony pelvis and left hip a re intact and show no evidence of fracture or focal destructio n. The joint spaces are maintained. Procedure Note Enrico Mitchell M.D. / Provider, Natty celestin M.D. - 07/24/2016 EXAM: XR Pelvis Hip Left 1 view INDICATION: hip pain COMPARISON: None. FINDINGS: The bony pelvis and left hip a re intact and show no evidence of fracture or focal destructio n. The joint spaces are maintained. IMPRESSION: Negative pelvis and left hip . Madyson Larios(R), R.TCandy(R)(M) IMG DIAGNOSTIC IMAGING PROCEDURES documented in this encounter Visit Diagnoses Not on filedocumented in this encounter
--- OUTSIDE RECORDS SUMMARY | 2022-01-12 12:42 | XMS_ITS | Encounter Summary ---
:1955 Author Organization [facility] Address [address] [place] [address] Care Team Providers Name Role Phone Unavailable Primary Care Provider Unavailable Encounter Details Date Type Department Care Team Description 06/25/2013 Hospital Encounter HX NO MAPPING Clay Man M.D. [address] [place] [address] , [address] [place] [address] (Wo rk) Social History Tobacco [...] do you attend zoroastrian or Never 2021 sabianist services? Do you [...]
--- OUTSIDE RECORDS SUMMARY | 2022-01-12 12:42 | XMS_ITS | Encounter Summary ---
:1955 Author Organization [facility] Address [address] [place] [address] Care Team Providers Name Role Phone Unavailable Primary Care Provider Unavailable Encounter Details Date Type Department Care Team Description 09/26/2014 Hospital Encounter HX [facility] Guido Man M.D. [address] [place] [address], [address] [place] [address] (Wo rk) Social History Tobacco [...] do you attend scientology or Never 2021 adventist services? Do you belong to any clubs or Yes 12/12/2021 organizations such as scientology groups, unions, fraternal or athletic groups, or [...] Sign Reading Time Taken Comments Blood Pressure 132/80 09/26/2014 10:46 AM CDT Pulse - - Temperature - - Respiratory Rate - - Oxygen Saturation - - Inhaled Oxygen Concentration - - Weight 119 kg (261 lb 7.5 oz) 09/26/2014 10:46 AM CDT Height - - Body Mass Index 38.73 11/08/2013 12:47 PM CDT documented in this [...] as of this encounter Progress Notes Yobani Mna M.D. - 09/26/2014 10:40 AM CDT [id number] CHIEF COMPLAINT/REASON FOR VISIT Followup low back and left lower extremity pain. HISTORY OF PRESENT ILLNESS Ms. Adames returns today. Since I last saw her, she has been working in physical therapy. She had reports that she has made some improvement, specifically with respect to the left lateral hip pain which she is pleased with. She has been performing exercises on her own on a regular basis. She has also reinitiated use of her pool therapy and is going twice per week which she is very pleased with. She reports that she has been having a flare of her fibromyalgia symptoms today and so she is having pain in multiple different areas which she associates often times with a change in the weather such as a storm front. In addition to the left lateral hip pain she has also noted some pain that can occur deep in the left groin. She feels this is consistent with discomfort in the region of her iliopsoas tendon. She has also been noticing some pain in the dorsum of her left foot and points to the region of her 3rd metatarsal. She reports sometimes this pain is less but sometimes it can be more intense. PHYSICAL EXAMINATION GENERAL: Pleasant 59-year-old female in no acute distress. GAIT: Nonantalgic today. PALPATION: There is tenderness to palpation of the left greater trochanteric bursa region as well asdiffusely in the left gluteal region. Hip: Preserved hip range of motion on the left. Negative Geovanna's and negative Stinchfield's. Foot: There is no swelling, warmth or erythema on the dorsum of the left foot. There is tenderness to palpation over the 3rd metatarsal especially distally. IMPRESSION/REPORT/PLAN 1. Left gluteal and lateral thigh pain. 2. Low back pain. 3. Lumbar spondylosis. 4. Fibromyalgia. 5. Left hip pain. 6. Left foot pain. Ms. Adames has made excellent progress and has been very diligent with what she has been shown in physical therapy which I commended her on. I do feel she has greater trochanteric pain syndrome with her tenderness to palpation in the region of the left greater trochanteric bursa but she has been making very good progress overall. PLAN: 1. I am going to proceed today with x-rays of the left hip with Ms. Bebeto Multani's discomfort shecan experience in the left groin. I do feel that this is consistent with an iliopsoas strain but other things to consider would include the possibility of some mild underlying left hip degenerative joint disease and with her persistent symptoms, I am going to proceed with an x-ray of the left hip. 2. I also going to proceed with x-rays today of the left foot. Mr. Bebeto Multani's symptoms are most consistent with metatarsalgia but I cannot rule out a potential stress reaction, although the intermittent nature of the pain would fit with metatarsalgia. 3. We will plan on being in contact with Ms. Adames after the x-rays to discuss the resultsand the next step in her management but overall the plan is going to be for her to continue the exercises she had was shown on her own physical therapy and she has 1 formal session remaining. If she were to have a setback or plateau with respect to the left greater trochanteric pain syndrome we could consider a left greater trochanteric bursa corticosteroid injection. Ms. Adames voiced agreement and understanding with this plan. Yobani Man M.D./veena Electronically Signed By: YOBANI MAN MD On: 09/27/2014 01:11 PM Modified by and Electronically Signed by: YOBANI MAN MD On: 09/27/2014 01:11 PM Source: [facility] [email or web address] Document Id: [id number] documented in this encounter Miscellaneous Notes Miscellaneous - Yobani Man M.D. - 09/26/2014 11:23 AM CDT Ambulatory Patient Summary [facility] [address] [place] [phone] Visit Information Name: NICOLASLuciano MULTANI YAZ [facility] Number: [id number] Current Date: 09/26/2014 11:23:01 Physicians Attending Provider: YOBANI MAN MD Primary Care Provider: PCP, EL GILMOREINE has been given the following list of [...] a day Take with food levOCARNitine (L-Carnitine) *lidocaine topical (Lidoderm 5% topical film) 1 [...] the Following Medications: Medication list as of 09-26-14 11:23 Attention: If you have any medications at [...] Electronically Signed By: YOBANI MAN MD Signed On:26-SEP-2014 11:20:43 Your Allergies & Intolerances Substance Reaction Symptoms [...] if you dont have one. Go to [email or web address] and click on Create Your Account. Then, follow the directions to complete the online form. Youll be asked for your [facility] number which you can find at the top of this document. Your Goals/Additional instructions: Source: [facility] POWERCHART Document Id: [id number] Miscellaneous - Yobani Man M.D. - 09/26/2014 11:23 AM CDT Ambulatory Discharge Medication List [address] [phone] Visit Information Name: YAZ MAYERS [facility] Number: [id number] Visit Date: 09/26/2014 11:23:00 Attending Provider: YOBANI MAN MD Primary Care [...] a day Take with food levOCARNitine (L-Carnitine) *lidocaine topical (Lidoderm 5% topical film) 1 [...] the Following Medications: Medication list as of 09-26-14 11:23 Attention: If you have any medications at [...] Electronically Signed By: YOBANI MAN MD Signed On:26-SEP-2014 11:20:43 Additional Information: Source: 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 Intake/History Entered On: 09/26/2014 10:48 CDT Performed On: 09/26/2014 10:46 CDT by KATE GIRALDO LPN Intake Systolic Blood Pressure : 132 mmHg Diastolic Blood Pressure : 80 mmHg NIBP Mean : 97 mmHg BP Location : Left upper extremity Blood Pressure Cuff Size : Large Actual Weight : 118.6 kg(Converted to: 261 lb 7 oz) Dosing Weight Clinic : 118.6 kg KATE GIRALDO LPN - 09/26/2014 10:46 CDT General Info Information Given By : Patient Languages : Turkish Is Patient Female and 13-50 no hysterectomy : No KATE GIRALDO LPN - 09/26/2014 10:46 CDT Subjective Pain Symptoms : No KATE GIRALDO LPN - 09/26/2014 10:46 CDT Dependent Habits Tobacco Use/Currently Using : No Exposure to Tobacco Smoke : Other: never Smoking Status : Never smoker KATE GIRALDO LPN - 09/26/2014 10:46 CDT [facility] Document Id: [id number] CDT!19 documented in this encounter Plan of Treatment Not on filedocumented as of this encounter Visit Diagnoses Not on filedocumented in this encounter
--- OUTSIDE RECORDS SUMMARY | 2022-01-12 12:42 | XMS_ITS | Encounter Summary ---
:1955 Author Organization [facility] Address [address] [place] [address] Care Team Providers Name Role Phone Unavailable Primary Care Provider Unavailable Encounter Details Date Type Department Care Team Description 04/30/2012 Hospital Encounter HX [facility] Guido Man M.D. [address] [place] [address], [address] [place] [address] (Wo rk) Social History Tobacco [...] you attend latter day or Never 2021 adventism services? Do you [...] Sign Reading Time Taken Comments Blood Pressure 138/70 04/30/2012 12:49 PM EMERGENCY MEDICAL DISPATCHER Pulse - - Temperature - - Respiratory Rate - - Oxygen Saturation - - Inhaled Oxygen Concentration - - Weight 117 kg (257 lb 15 oz) 04/30/2012 12:49 PM EMERGENCY MEDICAL DISPATCHER Height - - Body Mass Index 38.2 12/18/2011 7:09 AM CDT documented in this [...] encounter Progress Notes Yobani Man M.D. - 04/30/2012 12:15 PM CST [id number] CHIEF COMPLAINT / REASON FOR VISIT Low back and left lower extremity pain. HISTORY OF PRESENT ILLNESS Ms. Santamaria is a pleasant 56-year-old female who I have followed for a variety of different issues in the past. She has known multilevel degenerative changes in her lumbar spine and did have radiofrequency denervation of the right L2-L3 and L3-L4 facet joints performed on December 04, 2011, [place] as well as radiofrequency denervation of the left L2-L3 and L3-L4 facet joints performed on December 05, 2011, at [facility]. She had been doing well until a few weeks ago when she started to note moreincreased discomfort in the left side of her low back. This is more pronounced in the low back compared to where she was having her pain previously. Then, 3 days ago, her Meals on Wheels was delivered.Her tray was left on the steps at the back door that she very infrequently uses. As she was positioning herself on the steps to try and reach the tray, she twisted and felt a sharp pain in her low back. Since that time, she has been having pain primarily on the left side of her low back that can radiate into the left gluteal region and into the anterior lateral thigh to the level of the knee. It doesnot extend distal to the knee. She denies any new paresthesias in the bilateral lower extremities. She has a long-standing history of bilateral foot paresthesias. She has felt slightly unsteady on her feet with respect to the left lower extremity but denies any focal weakness. She denies any change inher bowel or bladder habits or fevers or chills. She reports the pain was significant last evening, and it was very difficult for her to sleep. This is primarily low back pain, but she can experience intermittent shooting pain into the left lower extremity. She has been using oxycodone 5 mg, which sheuses intermittently when she has a flare of her symptoms. She also takes Cymbalta 120 mg daily for her fibromyalgia as well as amitriptyline 50 mg at bedtime and gabapentin 300 mg 4 times daily for herunderlying fibromyalgia. She did have a session with a chiropractor yesterday, which usually helps when she has a flare of her pain, but that did not help her this time. PHYSICAL EXAMINATION GENERAL: Pleasant 56-year-old female in no acute distress. NEUROLOGICAL: Oriented to person, place and time. Appropriate mood and affect. GAIT: Slightly antalgic, favoring the left lower extremity. STRENGTH: All major muscle groups of the lower extremities have normal and symmetric muscle strength, bulk and tone, except for -1 strength with resisted left knee extension, which was limited by pain. REFLEXES: Patellar tendon -1/-1 (bilateral total knee arthroplasties). Achilles 0/0. SENSATION: Normal pinprick and light touch sensation through lower extremities. LOWER EXTREMITIES: Straight leg raise causes pain in the left low back and gluteal region, approximately 55 degrees. MUSCULOSKELETAL: Spine -1 globally decreased lumbar spine range of motion. There is tenderness to palpation over the left lower lumbar paraspinals as well as in the region of the left sacroiliac joint and in the upper left gluteal region. Range of motion preserved hip range of motion bilaterally. IMPRESSION/REPORT/PLAN 1. Low back and intermittent left lower extremity acute exacerbation of chronic low back pain 2. Intermittent left lower extremity pain 3. Lumbar spondylosis 4. Fibromyalgia Ms. Santamaria has as a normal neurologic examination today, other than mild weakness with testing of her left quadriceps, which is limited by pain. It is possible that her symptoms could representa left L4 or L5 radiculopathy. Also, she may have suffered a lumbar strain at the time that this incident occurred 3 days ago when she was reaching for the tray on her steps. The majority of her pain is located in her low back, and she is very tender to palpation over the lower lumbar paraspinals. PLAN: 1. I am going to give Ms. Santamaria a prescription for Tizanidine 4 mg to initially just use atbedtime but can progress to 4 mg 3 times daily to help with much of the spasms and tightness that she has in the left side of her low back. 2. I am going to have Ms. Santamaria walk in the pool. When she has had flares of her low back pain before, this has helped her significantly, and I think that that would be reasonable for her to do as well. 3. We did discuss that if she does not note improvement with the Tizanidine and the pool, then we likely will consider a repeat lumbar spine MRI as she is having new symptoms radiating into her left lower extremity as well. 4. Will plan to be in contact with Ms. Santamaria next week to assess her progress. She knows alma in contact with me prior to that time if she notes any worsening or worrisome symptoms which we went over in detail today. She voiced agreement and understanding with this plan. Total time 45 minutes, counseling time 30 minutes Yobani Man M.D./don DOCID: [id number] Electronically Signed By: YOBANI MAN MD On: 05/11/2012 03:25 PM Modified by and Electronically Signed by: YOBANI MAN MD On: 05/11/2012 03:25 PM Source: [facility] MHSDOLBEYNONRADSYS Document Id: [id number] GENCY MEDICAL DISPATCHER documented in this encounter Miscellaneous Notes Telephone Encounter - Francoise Avila P.A.-C. - 05/15/2012 4:50 PM EMERGENCY MEDICAL DISPATCHER Phone Message Document Contains Addenda Addendum by YOBANI MAN MD on 18 May 2012 12:49:43 EMERGENCY MEDICAL DISPATCHER From: YOBANI MAN MD To: FRANCOISE AVILA; Sent: 05/18/2012 12:49:43 EMERGENCY MEDICAL DISPATCHER Subject: RE: Phone Message Done. Thanks. From: FRANCOISE AVILA To: YOBANI MAN MD; Sent: 05/15/2012 16:50:00 EMERGENCY MEDICAL DISPATCHER Subject: Phone Message Caller is: ( ) Patient ( ) Mother ( ) Father ( ) Spouse ( ) Daughter ( ) Son ( ) Pharmacy ( ) Other: Physician: Donovan Patient MRN #: Reason for Call: Yaz is staying at [facility] and the physical therapist there is wondering what they should be working on. If you could write up a PT order then I can fax it to them. Message: Advice/Action: Source used: ( ) Verbalizes [...] back cell phone number ( ) Source: [facility] [employer] Document Id: [id number] Telephone Encounter - Francoise Avila P.A.-C. - 05/11/2012 9:16 AM EMERGENCY MEDICAL DISPATCHER Phone Message Document Contains Addenda Addendum by YOBANI MAN MD on 11 May 2012 09:44:37 EMERGENCY MEDICAL DISPATCHER From: YOBANI MAN MD To: FRANCOISE AVILA; Sent: 05/11/2012 09:44:37 EMERGENCY MEDICAL DISPATCHER Subject: RE: Phone Message Thank you for letting me know. From: FRANCOISE AVILA To: YOBANI MAN MD; Sent: 05/11/2012 09:16:52 EMERGENCY MEDICAL DISPATCHER Subject: Phone Message Caller is: ( ) Patient ( ) Mother ( ) Father ( ) Spouse ( ) Daughter ( ) Son ( ) Pharmacy ( ) Other: Physician: Donovan Patient MRN #: Reason for Call: Yaz wanted to let you know that she was admitted to the [facility], because the pain got worse. Message: Advice/Action: Source used: ( ) Verbalizes [...] back cell phone number ( ) Source: [facility] POWERCHART Document Id: [id number] Electronically signed by Conversion, [facility] Master Pilot [id number] at 08/14/2016 6:05 PM CDT Miscellaneous - Yobani Man M.D. - 05/08/2012 12:00 AM CST [id number] [facility] May 08, 2012 DEPARTMENT OF ORTHOPEDIC SPINE SURGERY [address] [place] [address] RE: Yaz Santamaria : 1955 To Whom It May Concern: Thank you very much for reviewing Ms. Santamaria's situation. She is a pleasant 56-year-old female with a past medical history significant for fibromyalgia, bilateral total knee arthroplasties, a previous left hemilaminectomy at L3-L4 and chronic low back pain. Ms. Santamaria's low back pain had been doing very well following radiofrequency denervation of the bilateral L2-L3 and L3-L4 facet joints performed in November 2011 in [place]. At the end of March, she started to note increased discomfort in the left side of her low back. Then shortly thereafter, she was bending down to lift a tray up that was on the steps at her back door and as she was positioning herself to bend down she twisted and felt a sharp pain in her low back andthen radiating into the left gluteal region and anterolateral thigh to the level of the knee. This pain has been persistent since that time and with her worsening symptoms an MRI was performed of the lumbar spine on May 06, 2012, which you will have for your review. Per the radiologist, it appeared this did show a likely caudally extruded disk herniation at L2-L3 and the radiologist also felt there was a caudally extending epidermal hematoma in association with the disk herniation contributing to moderately severe central canal stenosis and impingement on the traversing left L3 nerve root in its subarticular recess. Ms. Santamaria has been involved in physical therapy, as well as been using gabapentin and Vicodin for her pain but, unfortunately, she has not had improvement in her symptoms. She did not have anyfocal neurologic deficits when I evaluated her just previous to the MRI. With her symptoms and the findings on the MRI, I am referring her to you with respect to management options for Ms. Santamaria. Thank you very much for seeing Ms. Santamaria. Sincerely, Yobani Man M.D. Department of Physical Med & Rehab lak Electronically Signed By: YOBANI MAN MD On: 05/12/2012 11:22 AM Modified by and Electronically Signed by: YOBANI MAN MD On: 05/11/2012 08:44 AM Source: [facility] MHSDOLBEYNONRADSYS Document Id: [id number] GENCY MEDICAL DISPATCHER Telephone Encounter - Yobani Man M.D. - 05/08/2012 12:00 AM CST [id number] I did speak with Dr. Webster who read Ms. Santamaria's lumbar spine MRI. He did feel that there was an epidural hematoma likely secondary to bleeding that occurred with a disk herniation. I still donot have the actual images to review. We called [facility] and they said the images were mailed immediately after the MRI was performed. I spoke again with Ms. Santamaria. She has had no worsening neurologic symptoms. With the findings on her MRI and her persistent pain, I feel that it isbest that she meet with one of the spine surgeons at [facility] to obtain their opinion with respect to potential management options at this time. Ms. Santamaria is also in agreement with this. I will plan on being in contact with Ms. Santamaria after her consultation at [facility] and she knows to be in contact with me prior to that time if she notes any worsening or worrisome symptoms which we went over in detail today. She voiced agreement and understanding with this plan. Yobani Man M.D./madelaine DOCID: [id number] Electronically Signed By: YOBANI MAN MD On: 05/11/2012 05:42 PM Modified by and Electronically Signed by: YOBANI MAN MD On: 05/11/2012 05:42 PM Source: [facility] MH[employer]OLBEYNON[employer] Document Id: [id number] GENCY MEDICAL DISPATCHER Telephone Encounter - Yobani Man M.D. - 05/07/2012 12:00 AM CST [id number] I reviewed the report of Ms. Santamaria's lumbar spine MRI that was performed yesterday at [facility]. I do not have the images as I am not able to review the images through the portal andwe have to wait until the CD is sent to us through the mail. The report mentions a new 0.8 x 1.1 x 2.1 cm left ventral lateral epidural mass extending caudally from the L2-L3 dorsal annular margin mostlikely representing a caudally extending epidural hematoma, caudally extruded disk herniation, or combination of the two. This contributes to moderately severe central stenosis and impingement on the traversing left L3 nerve root in the subarticular recess. There is also multilevel degenerative disk changes. There is chronic subarticular recess narrowing moderately severe on the right at L2-L3 with chronic subarticular impingement on the traversing right L3 nerve root. There is chronic mild bilateral foraminal narrowing at L4- L5, moderate on the left and mild to moderate on the right at L3-L4, mildto moderate on the right and moderate on the left at L2-L3, and moderate on the left at L1-L2. Thereis also multilevel hypertrophic degenerative facet arthropathy. I attempted to contact Dr. Webster, the radiologist who read this report. He is out of the office currently. He will be returning tomorrow. I then phoned Ms. Santamaria and she reports that her symptoms are basically unchanged this week. She did have a fall on May 02 which she felt worsened her low back and hip pain. She has not noted any new paresthesias in the bilateral lower extremities orany new focal weakness. She does feel weak overall in her left lower extremity secondary to pain butthat is not new. She denies feeling lightheaded or dizzy. She denies any changes in her bowel or bladder habits. I am going to be in contact with Dr. Webster tomorrow as well as try to obtain the images myself fromher lumbar spine MRI. Depending on my conversation with Dr. Webster, I discussed with Ms. Santamaria that we may have her meet with a spine surgeon with the ambiguity potentially of the findings on her MRI although it does seem most consistent with a likely caudally extruded disk herniation. She also knows that if she notes any worsening symptoms such as increased pain, paresthesias, changes in her bowel or bladder habits or weakness in the left lower extremity, she should present to the emergency department immediately and she did voice agreement with this. She voiced agreement and understanding with this plan. Yobani Man M.D./madelaine DOCID: [id number] Electronically Signed By: YOBANI MAN MD On: 05/12/2012 11:32 AM Modified by and Electronically Signed by: YOBANI MAN MD On: 05/12/2012 11:32 AM Source: [facility] [employer] Document Id: [id number] GENCY MEDICAL DISPATCHER Telephone Encounter - Francoise Avila P.A.-C. - 05/04/2012 11:04 AM EMERGENCY MEDICAL DISPATCHER Phone Message Document Contains Addenda Addendum by YOBANI MAN MD on 04 May 2012 11:38:04 EMERGENCY MEDICAL DISPATCHER From: YOBANI MAN MD To: FRANCOISE AVILA; Sent: 05/04/2012 11:38:04 EMERGENCY MEDICAL DISPATCHER Subject: RE: Phone Message Please obtain a MRI of her lumbar spine with follow-up with me afterward. Thanks. From: FRANCOISE AVILA To: YOBANI MAN MD; Sent: 05/04/2012 11:04:36 EMERGENCY MEDICAL DISPATCHER Subject: Phone Message Caller is: ( ) Patient ( ) Mother ( ) Father ( ) Spouse ( ) Daughter ( ) Son ( ) Pharmacy ( ) Other: Physician: Donovan Patient MRN #: Reason for Call: Yaz fell on Friday because her left leg just gave out on her. She landed with the left leg twisted under her, it is very difficult for her to get around and stand up or move. The pain is in the left butt/hip going down to the knee and all around the knee. All of this pain is worse than it was last week. The entire knee pain she thinks is new since the fall on Friday. She was able to go to the pool on Friday and that felt great, but now she can't move very well. She doesn't have any sharp pains with standing just her strong achy pain in that whole area. Message: Advice/Action: Source used: ( ) Verbalizes [...] back cell phone number ( ) Source: [facility] POWERCHART Document Id: [id number] Telephone Encounter - Francoise Avila P.A.-C. - 05/01/2012 11:58 AM EMERGENCY MEDICAL DISPATCHER Phone Message Document Contains Addenda Addendum by YOBANI MNA MD on 01 May 2012 14:01:27 EMERGENCY MEDICAL DISPATCHER From: YOBANI MAN MD To: FRANCOISE AVILA; Sent: 05/01/2012 14:01:27 EMERGENCY MEDICAL DISPATCHER Subject: RE: Phone Message Thanks. Addendum by FRANCOISE AVILA on 01 May 2012 13:18:04 EMERGENCY MEDICAL DISPATCHER From: FRANCOISE AVILA To: YOBANI MAN MD; Sent: 05/01/2012 13:18:04 EMERGENCY MEDICAL DISPATCHER Subject: RE: Phone Message They did recheck her blood pressure at noon and it was much better at 124/80. She will split the tizanidine pills in half and see if that helps. Addendum by YOBANI MAN MD on 01 May 2012 12:04:31 EMERGENCY MEDICAL DISPATCHER From: YOBANI MAN MD To: FRANCOISE AVILA; Sent: 05/01/2012 12:04:31 EMERGENCY MEDICAL DISPATCHER Subject: RE: Phone Message Yes, she can cut them in half. Just use 1/2 tab currently to see if that helps. Thanks. From: FRANCOISE AVILA To: YOBANI MAN MD; Sent: 05/01/2012 11:58:59 EMERGENCY MEDICAL DISPATCHER Subject: Phone Message Caller is: ( ) Patient ( ) Mother ( ) Father ( ) Spouse ( ) Daughter ( ) Son ( ) Pharmacy ( ) Other: Physician: Donovan Patient MRN #: Reason for Call:The home health nurse was out to see Yaz this morning. Yza did take one of thetizanidine last night and this morning. When the nurse took her blood pressure they were concerned because it was 84/50 and yesterday at her appointment with you it was 138/70. She is not having any other symptoms of low blood pressure per the nurse. Could this be from the tizanidine? The pharmacist said that the tizanidine pill is scored so she could split them in half if you think that would be ok. Message: Advice/Action: Source used: ( ) Verbalizes [...] back cell phone number ( ) Source: [facility] POWERCHART Document Id: [id number] Miscellaneous - Yobani Man M.D. - 04/30/2012 1:54 PM CST Ambulatory Patient [place] [address] Visit Information Name: YAZ SANTAMARIA [facility] Number: [id number] Current Date: 04/30/2012 13:54:58 Physicians Attending Provider: YOBANI MAN MD Primary Care Provider: ELVIA BOND MD Your Medications Here is a list of your medications. It is important to take your medications as directed. Use a pillbox or chart to help remind you to take your medications. Please let your doctor or nurse know if you have problems taking your medications. Medication/Strength Dose Route Frequency Indications/Special Instructions/Comments tizanidine (tizanidine 4 mg oral tablet) 4 [...] No Appointments found Your Goals/Additional instructions: Source: [facility] POWERCHART Document Id: [id number] GENCY MEDICAL DISPATCHER Miscellaneous - Yobani Man M.D. - 04/30/2012 1:54 PM CST Ambulatory Depart [place] [address] Visit Information Name: YAZ SANTAMARIA [facility] Number: [id number] Visit Date: 04/30/2012 13:54:57 Attending Provider: YOBANI MAN MD Primary Care [...] medications. Medication/Strength Dose Route Frequency Indications/Special Instructions/Comments tizanidine (tizanidine 4 mg oral tablet) 4 [...] your provider for clarification. Additional Information: Source: [facility] POWERCHART Document Id: [id number] GENCY MEDICAL DISPATCHER Miscellaneous - Francoise Avila P.A.-C. - 04/30/2012 1:54 PM CST Reminder Msg From: FRANCOISE AVILA To: FRANCOISE AVILA; Sent: 04/30/2012 13:54:35 EMERGENCY MEDICAL DISPATCHER Show up: 05/07/2012 13:54:00 EMERGENCY MEDICAL DISPATCHER Subject: Reminder Msg Please Remember to: see how she is feeling PATIENT: ( ) Call Patient ( ) Ask Patient to ( ) ( ) Call Relative ( ) Schedule Patient ( ) ( ) Call for Claims Vice President ( ) Follow up on Results ( ) Other: PROVIDER: ( ) Call Physician ( ) Call Pharmacist ( ) Call Lab ( ) Other: Special Instructions: Comments: Source: [facility] POWERCHART Document Id: [id number] Miscellaneous - Francoise Avila P.A.-C. - 04/30/2012 12:49 PM CST Adult Cutter Tender Intake/History Adult Cutter Tender Intake/History Entered On: 04/30/2012 12:49 EMERGENCY MEDICAL DISPATCHER Performed On: 04/30/2012 12:49 EMERGENCY MEDICAL DISPATCHER by FRANCOISE AVILA Intake Systolic Blood Pressure : 138mmHg Diastolic Blood Pressure : 70mmHg NIBP Mean : 93mmHg BP Location : Right upper extremity Blood Pressure Cuff Size : Large Actual Weight : 117.0kg(Converted to: 257lb 15oz) Weight Source : Standing scale Dosing Weight Clinic : 117.00kg FRANCOISE AVILA - 04/30/2012 12:49 EMERGENCY MEDICAL DISPATCHER General Info Information Given By : Patient Preferred Communication Mode : Verbal Languages : Russian FRANCOISE AVILA - 04/30/2012 12:49 EMERGENCY MEDICAL DISPATCHER Subjective Pain Symptoms : No FRANCOISE AVILA - 04/30/2012 12:49 EMERGENCY MEDICAL DISPATCHER Dependent Habits Tobacco Use/Currently Using : No Exposure to Tobacco Smoke : Other: never Smoking Status : Never smoker FRANCOISE AVILA - 04/30/2012 12:49 EMERGENCY MEDICAL DISPATCHER Allergy Allergies (Active) penicillins Estimated Onset Date: Unspecified ; Created By: FRANCOISE AVILA; Reaction Status:Active ; Category: Drug ; Substance: penicillins ; Type: Allergy ; Updated By: FRANCOISE AVILA; Reviewed Date: 03/05/2012 14:12 EMERGENCY MEDICAL DISPATCHER Source: [facility] [employer] Document Id: [id number] GENCY MEDICAL DISPATCHER documented in this encounter Plan of Treatment Not on filedocumented as of this encounter Visit Diagnoses Not on filedocumented in this encounter
--- OUTSIDE RECORDS SUMMARY | 2022-01-12 12:42 | XMS_ITS | Encounter Summary ---
:1955 Author Organization [facility] Address [address] [place] [address] Care Team Providers Name Role Phone Unavailable Primary Care Provider Unavailable Encounter Details Date Type Department Care Team Description 04/19/2014 Hospital Encounter [facility]X [facility] Guido Man M.D. [address] [place] [address], [address] [place] [address] (Wo rk) Social History Tobacco [...] do you attend nondenominational or Never 2021 synagogue services? Do you [...] Reading Time Taken Comments Blood Pressure 124/66 04/19/2014 12:25 PM ICER HAND Pulse - - Temperature - - Respiratory Rate - - Oxygen Saturation - - Inhaled Oxygen Concentration - - Weight 119 kg (262 lb 12.6 oz) 04/19/2014 12:25 PM ICER HAND Height - - Body Mass Index 38.92 11/08/2013 12:47 PM CDT documented in this [...] encounter Progress Notes Yobani Man M.D. - 04/19/2014 12:02 PM CST [id number] CHIEF COMPLAINT/REASON FOR VISIT Followup left chest wall pain, left shoulder pain, and low back pain. HISTORY OF PRESENT ILLNESS Ms. Adames returns today in followup. Patient also has worked in physical therapy and reports she has made very good progress with respect to her left shoulder pain and left chest wall pain. She now only very intermittently experiences any chest wall pain. Her left shoulder pain is also improved markedly. She occasionally experiences a catching sensation in the anterior shoulder but that is infrequent. Her low back pain continues to be an issue for her, although she does feel that she is ambulating better and she has returned to the pool in addition to working in physical therapy and feels that has improved the symptoms in her low back as well. She has implemented several excellent things with respect to her sleep hygiene and has been using sleep music to help her sleep, which she has found to be helpful. She talks with Dr. Burnette about this regularly as well. PHYSICAL EXAMINATION GENERAL: Pleasant 58-year-old female in no acute distress. MUSCULOSKELETAL: Shoulder forward elevation is 170 degrees bilaterally, abduction is 180 degrees bilaterally, with no pain today in the mid arc on the left. Normal strength with testing rotator cuff musculature bilaterally. There is minimal tenderness to palpation over the left anterior subacromial space. There is mild tenderness to palpation of the left upper trapezius and diffusely in the left anterior lateral chest wall, but significantly improved from previously. SPINE: There is tenderness to palpation of bilateral low lumbar paraspinals. IMPRESSION/REPORT/PLAN 1. Low back pain. 2. Lumbar spondylosis. 3. Left chest wall pain. 4. Left shoulder pain. 5. Fibromyalgia. Ms. Adames has made excellent progress to this point working in physical therapy. I am going to have Ms. Adames complete her formal physical therapy as she will continue to advance her current program. Over the next few weeks I anticipate she will transition completely to an independent exercise program. I would also like her to continue her aquatic-based program, which she has beenvery diligent with to this point and I commended her on. I will plan on seeing Ms. Adames back following physical therapy if she has any plateau in her symptoms or any new symptoms. She knows to be in contact with me prior to that time if she notes any worsening or worrisome symptoms which we went over in detail today. Ms. Adames voiced agreement and understanding with this plan. Total time 25 minutes, counseling time greater than 15 minutes. Yobani Man M.D./veena Electronically Signed By: YOBANI MAN MD On: 04/21/2014 12:08 PM Modified by and Electronically Signed by: YOBANI MAN MD On: 04/21/2014 12:08 PM Source: [facility] MHSDOLBEYNONRADSYS Document Id: [id number] HAND documented in this encounter Miscellaneous Notes Estefaniacellbernard - Nba Benson - 06/07/2014 9:25 AM CDT *General Message From: NBA BENSON ( Physical Medicine and Rehabilitation Staff) To: YAZ MAYERS Sent: 06/07/2014 09:25:00 CDT Subject: *General Message Tarik Mukherjee, I am following up with you after you had those injections in your low back, how are you feeling? Thank you, Nba Source: [facility] POWERCHART Document Id: [id number] Electronically signed by Priya [facility] Foreign Languages Department Chair [id number] at 08/11/2016 8:28 PM CDT Miscellaneous - Nba Benson - 05/24/2014 2:42 PM CDT Reminder Msg Document Contains Addenda Addendum by NBA BENSON on 07 June 2014 15:11:43 CDT See other message in EMR. Addendum by NBA BENSON on 07 June 2014 09:25:25 CDT Message sent to patient via portal. From: NBA BENSON ( Physical Medicine and Rehabilitation Staff) To: Physical Medicine and Rehabilitation Staff; Sent: 05/24/2014 14:42:29 CDT Show up: 06/06/2014 14:42:00 CDT Subject: Reminder Msg Please Remember to: Call pt to see how she's doing after L4-L5 and L5-S1 facet joint injections PATIENT: ( ) Call Patient ( ) Ask Patient to ( ) ( ) Call Relative ( ) Schedule Patient ( ) ( ) Call for Lift Slab Operator ( ) Follow up on Results ( ) Other: PROVIDER: ( ) Call Physician ( ) Call Pharmacist ( ) Call Lab ( ) Other: Special Instructions: Comments: Source: [facility] POWERCHART Document Id: [id number] Electronically signed by Priya [facility] Foreign Languages Department Chair [id number] at 08/11/2016 8:28 PM CDT Miscellaneous - Yobani Man M.D. - 04/19/2014 1:48 PM CST Ambulatory Patient Summary [address] [id number] Visit Information Name: YAZ MAYERS [facility] Number: [id number] Current Date: 04/19/2014 13:48:35 Physicians Attending Provider: YOBANI MAN MD Primary [...] the Following Medications: Medication list as of 04-19-14 13:48 Attention: If you have any medications at [...] Electronically Signed By: YOBANI MAN MD Signed On:19-APR-2014 13:47:56 Your Allergies & Intolerances Substance Reaction Symptoms Category Comments penicillins Drug Your Problem List Problem Status Onset Comments No Chronic Problems Active Your Upcoming Appointments Date Time Location Provider 07/05/2014 14:30 [facility] PM&R Yobani Man MD Attention: Contact your local Clinic if further appointment detail needed. Your Goals/Additional instructions: Source: [facility] POWERCHART Document Id: [id number] HAND Miscellaneous - Yobani Man M.D. - 04/19/2014 1:48 PM CST Ambulatory Discharge Medication List [address] [id number] Visit Information Name: YAZ MAYERS [facility] Number: [id number] Visit Date: 04/19/2014 13:48:32 Attending Provider: YOBANI MAN MD Primary Care Provider: PCPGABE YAZ MAYERS has been given the following [...] the Following Medications: Medication list as of 04-19-14 13:48 Attention: If you have any medications at [...] Electronically Signed By: YOBANI MAN MD Signed On:19-APR-2014 13:47:56 Additional Information: Source: [facility] [employer] Document Id: [id number] HAND Miscellaneous - Nba Benson - 04/19/2014 12:25 PM CST Adult Public Safety Telecommunicator Intake/History Adult Public Safety Telecommunicator Intake/History Entered On: 04/19/2014 12:28 ICER HAND Performed On: 04/19/2014 12:25 ICER HAND by NBA BENSON Intake Systolic Blood Pressure : 124 mmHg Diastolic Blood Pressure : 66 mmHg NIBP Mean : 85 mmHg BP Location : Left upper extremity Blood Pressure Cuff Size : Large Actual Weight : 119.2 kg(Converted to: 262 lb 13 oz) Weight Source : Standing scale Dosing Weight Clinic : 119.2 kg NBA BENSON - 04/19/2014 12:25 ICER HAND General Info Information Given By : Patient Preferred Communication Mode : Verbal Languages : Malay Is Patient Female and 13-50 no hysterectomy : NBA [place] - 04/19/2014 12:25 ICER HAND Subjective Pain Symptoms : NBA [place] - 04/19/2014 12:25 ICER HAND Dependent Habits Tobacco Use/Currently Using : No Exposure to Tobacco Smoke : Other: never Smoking Status : Never smoker NBA BENSON - 04/19/2014 12:25 ICER HAND ID Screen Drug Resistant Organism : No Travel Within Last 21 Days : NBA [place] - 04/19/2014 12:25 ICER HAND [facility] Document Id: [id number] ICER HAND!24 HAND documented in this encounter Plan of Treatment Not on filedocumented as of this encounter Visit Diagnoses Not on filedocumented in this encounter
--- OUTSIDE RECORDS SUMMARY | 2022-01-12 12:42 | XMS_ITS | Encounter Summary ---
:1955 Author Organization [facility] Address [address] [place] [address] Care Team Providers Name Role Phone Unavailable Primary Care Provider Unavailable Encounter Details Date Type Department Care Team Description 05/06/2012 Hospital Encounter HX [facility] Rob Lemons M.D. [address] [place] [address], [address] [place] [address] (Wo rk) Social History Tobacco [...] do you attend buddhism or Never 2021 zoroastrian services? Do you [...]
--- OUTSIDE RECORDS SUMMARY | 2022-01-12 12:42 | XMS_ITS | Encounter Summary ---
:1955 Author Organization [facility] Address [address] [place] [address] Care Team Providers Name Role Phone Unavailable Primary Care Provider Unavailable Encounter Details Date Type Department Care Team Description 10/28/2013 Hospital Encounter HX [facility] Guido Man M.D. [address] [place] [address], [address] [place] [address] (Wo rk) Social History Tobacco [...] do you attend shinto or Never 2021 rastafari services? Do you [...] Sign Reading Time Taken Comments Blood Pressure 138/80 10/28/2013 2:54 PM CDT Pulse - - Temperature - - Respiratory Rate - - Oxygen Saturation - - Inhaled Oxygen Concentration - - Weight 122 kg (268 lb 4.8 oz) 10/28/2013 2:54 PM CDT Height - - Body Mass Index 39.74 11/13/2012 12:52 PM CDT documented in this [...] encounter Progress Notes Yobani Man M.D. - 10/28/2013 2:45 PM CDT [id number] CHIEF COMPLAINT/REASON FOR VISIT Follow up low back pain. HISTORY OF PRESENT ILLNESS Ms. Santamaria returns today. She has returned from her trip. She reports that she has been having more pain again in the upper lumbar region, in addition to the pain in her low back. She reports this is very similar to the pain that she has had in the past that has responded well to radiofrequency denervation of the bilateral L2-L3, and L3-L4 facet joints. This was last performed at the beginning of November 2012. Ms. Santamaria describes this as a constant achy discomfort. This pain has been worse over the past month. She does have pain that will radiate into her bilateral lower extremities, which is not new. This typically involves the gluteal region, bilateral posterior hips and bilate ral posterior lateral thighs to the level of the knees. She denies any weakness in her lower extremities, changes in her bowel or bladder habits, or fevers or chills. She has been using oxycodone againintermittently because of the discomfort that she has been experiencing. Ms. Santamaria reports that with the increased back pain that she has been experiencing, she has noted also more pain in herankles, in the region of the Achilles, as well as in her feet. PHYSICAL EXAMINATION GENERAL: Pleasant 58-year-old female in no acute distress. SPINE: -2 lumbar extension and mildly decreased lumbar flexion. PALPATION: There is tenderness to palpation throughout the lumbar paraspinals bilaterally. STRENGTH: All major muscle groups of the bilateral lower extremities have normal and symmetric muscle strength, bulk and tone. REFLEXES: Her bilateral lower extremity muscle reflexes are physiologic and symmetric. IMPRESSION/REPORT/PLAN 1. Low back pain. 2. Lumbar spondylosis. 3. Fibromyalgia. This is a very difficult situation. Ms. Santamaria continues to have a normal neurologic examination. She has multilevel degenerative changes in her lumbar spine. She has pain in a rather diffuse location in the lumbar spine, but now more recently again has been having increased discomfort in the upper lumbar region, which has responded well in the past to radiofrequency denervation to the bilateral L2-L3 and L3-L4 facet joints. Ms. Santamaria does have underlying fibromyalgia, which can influence her pain as well certainly, but she has very good insight into her different areas of pain andthis is consistent with the previous pain that she has had that has responded to the radiofrequency denervation. PLAN: 1. With Ms. Santamaria's discomfort, as well her previous imaging findings and previous response, we are going to arrange for a consultation in the Pain Clinic for consideration of repeating the bilateral L2-L3 and L3-L4 facet joint radiofrequency denervation. We will make this referral for Ms. Santamaria. Based on her normal and unchanged neurologic examination, I do not feel that we need torepeat any lumbar imaging at this time and we will therefore make the referral for her. 2. I will plan on being in contact with Ms. Santamaria after her consultation at [place]. She knowsto be in contact with us prior to that time if she notes any worsening or worrisome symptoms which we went over in detail today. She voiced agreement and understanding with this plan. Total time 25 minutes, counseling time 15 minutes. Yobani Man M.D./veena Electronically Signed By: YOBANI MAN MD On: 10/29/2013 11:58 AM Modified by and Electronically Signed by: YOBANI MAN MD On: 10/29/2013 11:58 AM Source: [facility] MHSDOLBEYNONRADSYS Document Id: [id number] documented in this encounter Miscellaneous Notes Telephone Encounter - Conversion, Historical Provider Ser - 01/24/2014 11:03 AM CST *Phone Message/Dr. Man Document Contains Addenda Addendum by NBA BENSON on 26 January 2014 08:06:07 JAVA TECHNICAL MANAGER Information has been added. From: CHELA CASTILLO ( [facility] Throat Physician) To: Physical Medicine and Rehabilitation Staff; Sent: 01/24/2014 11:03:14 JAVA TECHNICAL MANAGER Subject: *Phone Message/Dr. Man Caller is: ( ) Patient ( ) Mother ( ) Father ( ) Spouse ( ) Daughter ( ) Son ( ) Pharmacy ( x ) Other: Friend Physician: Dr. aMn Patient MRN #: Reason for Call: Message: S A friend called to schedule an appointment for Yaz. She is in [place] right now, but comes home on Friday. She believes that she has ruptured another disc and would like to see Dr. Man when she gets back. She scheduled an appointment on February 17 at 8:30, but would like to be on thecancellation list. B A R Please call patient if something comes up sooner. Advice/Action: Source used: ( ) Verbalizes understanding [...] back cell phone number ( ) Source: [facility] POWERCHART Document Id: [id number] Miscellaneous - Yobani Man M.D. - 10/28/2013 3:34 PM CDT Ambulatory Patient Summary [address] [id number] Visit Information Name: YAZ SANTAMARIA [facility] Number: [id number] Current Date: 10/28/2013 15:34:40 Physicians Attending Provider: YOBANI MAN MD Primary Care Provider: PCP, ELSEWHERE YAZ SANTAMARIA has been given the following list [...] the Following Medications: Medication list as of 10-28-13 15:34 Attention: If you have any medications at [...] Electronically Signed By: YOBANI MAN MD Signed On:28-OCT-2013 15:33:53 Your Allergies & Intolerances Substance Reaction Symptoms Category Comments penicillins Drug Your Problem List Problem Status Onset Comments No Chronic Problems Active Your Upcoming Appointments Date Time Location Reason Provider No Appointments found Attention: Contact your local Clinic if further appointment detail needed. Your Goals/Additional instructions: Source: [facility] POWERCHART Document Id: [id number] Miscellaneous - Yobani Man M.D. - 10/28/2013 3:34 PM CDT Ambulatory Discharge Medication List [address] [id number] Visit Information Name: YAZ SANTAMARIA [facility] Number: [id number] Visit Date: 10/28/2013 15:34:38 Attending Provider: YOBANI MAN MD Primary Care Provider: PCP, GABE YAZ SANTAMARIA has been given the following list [...] the Following Medications: Medication list as of 10-28-13 15:34 Attention: If you have any medications at [...] Electronically Signed By: YOBANI MAN MD Signed On:28-OCT-2013 15:33:53 Additional Information: Source: [facility] [employer] Document Id: [id number] Miscellaneous - Imelda Culp RSukh(R) - 10/28/2013 2:54 PM CDT Adult Food Service Director Intake/History Document Has Been Updated Adult Food Service Director Intake/History Entered On: 10/28/2013 14:58 CDT Performed On: 10/28/2013 14:54 CDT by IMELDA CULP Intake Systolic Blood Pressure : 138 mmHg Diastolic Blood Pressure : 80 mmHg NIBP Mean : 99 mmHg Oxygen Therapy : Room air Actual Weight : 121.7 kg(Converted to: 268 lb 5 oz) Weight Source : Standing scale Dosing Weight Clinic : 121.7 kg IMELDA CULP - 10/28/2013 14:54 CDT General Info Information Given By : Patient Preferred Communication Mode : Verbal Languages : Serbian Is Patient Female and 13-50 no hysterectomy : No IMELDA CULP - 10/28/2013 14:54 CDT Subjective Pain Symptoms : No IMELDA CULP - 10/28/2013 14:54 CDT Dependent Habits Tobacco Use/Currently Using : No Tobacco Use/Last 12 months : No Tobacco Use/Advised to Quit : No Exposure to Tobacco Smoke : Other: never Smoking Status : Never smoker IMELDA CULP - 10/28/2013 14:54 CDT Allergy (As Of: 10/28/2013 14:58:08 CDT) Allergies (Active) penicillins Estimated Onset Date: Unspecified ; Created By: FRANCOISE AVILA; Reaction Status:Active ; Category: Drug ; Substance: penicillins ; Type: Allergy ; Updated By: FRANCOISE AVILA; Reviewed Date: 10/28/2013 14:55 CDT Source: [facility] [employer] Document Id: [id number] CDT!22 documented in this encounter Plan of Treatment Not on filedocumented as of this encounter Visit Diagnoses Not on filedocumented in this encounter
--- OUTSIDE RECORDS SUMMARY | 2022-01-12 12:42 | XMS_ITS | Encounter Summary ---
:1955 Author Organization [facility] Address [address] [place] [address] Care Team Providers Name Role Phone Unavailable Primary Care Provider Unavailable Encounter Details Date Type Department Care Team Description 05/27/2012 Hospital Encounter HX [facility] Guido Man M.D. [address] [place] [address], [address] [place] [address] (Wo rk) Social History Tobacco [...] do you attend alevism or Never 2021 yarsani services? Do you [...] Sign Reading Time Taken Comments Blood Pressure 128/70 05/27/2012 4:12 PM CDT Pulse - - Temperature - - Respiratory Rate - - Oxygen Saturation - - Inhaled Oxygen Concentration - - Weight 117 kg (257 lb 15 oz) 05/27/2012 4:12 PM CDT Height - - Body Mass Index 38.2 [...] encounter Progress Notes Yobani Man M.D. - 05/27/2012 3:49 PM CDT [id number] CHIEF COMPLAINT / REASON FOR VISIT Follow-up low back and left lower extremity pain. HISTORY OF PRESENT ILLNESS Ms. Santamaria returns today in followup. Since I last saw her, she was seen by Dr. Romano, orthopedic spine surgeon at [facility] [place] and I very much appreciate Dr. Laird, Dr. Romano, and Chente Piper, RN, JAVA PERFORMANCE ENGINEER working Ms. Santamaria in to their schedule. Ms. Santamaria had a left L3 transforaminal epidural corticosteroid injection performed at [facility] on May 14. Unfortunately, she did not find that to be overly helpful for her symptoms. She has continued to be bothered by pain primarily in the midportion of her lumbar spine that can then radiate into left gluteal region, left groin and anteriorthigh and lateral thigh to the level of the knee. The majority of her pain is located in the low back. She has been at [facility] and her pain has made it difficult for her to care for herself independently. She has been placed on a Fentanyl patch and is currently using 50 mcg which she has found to be helpful and that has allowed her to decrease her oxycodone use. Yesterday, she took oneoxycodone and as of this appointment has not taken any oxycodone today. She has been having physicaland occupational therapy daily and notes that she has been starting to walk more now with the use ofa walker and is pleased with her progress with respect to that as well as she has been able to transfer easier. She feels weak in her left lower extremity but denies any new focal weakness in her lower extremities. She denies any changes in her bowel or bladder habits, fever or chills, or recent unintentional weight loss. PHYSICAL EXAMINATION GENERAL: Pleasant 57-year-old female in no acute distress. NEURO: Oriented to person, place and time. Appropriate mood and affect. GAIT: Gait is deferred today as Ms. Santamaria is sitting in her wheelchair. She is able to transfer from her manual wheelchair to the bed independently. EXTREMITIES: Strength: All major muscle groups of the bilateral lower extremities have normal and symmetric muscle strength, bulk and tone, except for -1 strength with resisted left hip flexion and left knee extension which is limited by pain this causes in the region of the low back and left hip. Refl exes: Patellar tendon -1/-2, (bilateral total knee arthroplasties) Achilles 0/0. Sensation: Normal light touch sensation through upper extremities. Seated straight leg raise causes pain in the low backand left gluteal region. IMPRESSION/REPORT/PLAN 1. Low back and intermittent left lower extremity pain 2. MRI evidence for L2-L3 disc herniation. Ms. Santamaria's neurologic examination is unchanged. the acute worsening of her chronic low back pain is likely related to the L2-L3 disc herniation as these symptoms occurred acutely following anepisode when she was bending and twisting. She does have pain into her left lower extremity but the majority of her pain is located in her low back. PLAN 1. Dr. Romano and his team did discuss with Ms. Santamaria the possibility of considering a revision decompression of L2 through L4 with diskectomy but they did discuss with her this would not address her chronic low back pain that has been present for sometime. She understands this and because ofthat wishes to try everything possible from a nonoperative standpoint before considering further surgical intervention. She was very appreciative of the care that she has been receiving at [facility] with Dr. Kingsley's team. 2. I am going to have Ms. Santamaria continue working in occupational and physical therapy. Shehas made progress from a functional standpoint over the past couple of weeks. She will continue to use her medications as prescribed by her primary provider in [place] which includes a Fentanyl patch 50 mcg daily. She has also been using oxycodone as needed for breakthrough pain as well as gabapentin 600 mg 3 times daily. 3. I will plan on seeing Ms. Santamaria back in one month to assess her progress. She knows to be in contact with me prior to that time if she notes any worsening or worrisome symptoms which we went over in detail today. She voiced agreement and understanding with this plan. Total time 35 minutesand counseling time 25 minutes Yobani Man M.D./madelaine DOCID: [id number] Electronically Signed By: YOBANI MAN MD On: 05/29/2012 02:48 PM Modified by and Electronically Signed by: YOBANI MAN MD On: 05/29/2012 02:48 PM Source: [facility] MHSDOLBEYNONRADSYS Document Id: [id number] documented in this encounter Miscellaneous Notes Telephone Encounter - Francoise Avila P.A.-C. - 06/05/2012 3:56 PM CDT Phone Message Document Contains Addenda Addendum by FRANCOISE AVILA on 09 June 2012 10:33:53 CDT Faxed PT rx to [facility]. Addendum by YOBANI MAN MD on 08 June 2012 17:38:23 CDT From: YOBANI MAN MD To: FRANCOISE AVILA; Sent: 06/08/2012 17:38:23 CDT Subject: RE: Phone Message I think that would be very reasonable. From: FRANCOISE AVILA To: YOBANI MAN MD; Sent: 06/05/2012 15:56:54 CDT Subject: Phone Message Caller is: ( ) Patient ( ) Mother ( ) Father ( ) Spouse ( ) Daughter ( ) Son ( ) Pharmacy ( ) Other: Physician: [facility] Patient MRN #: Reason for Call: Yaz has returned home and Vernon from [employer] is there today. Vernon will be going to Yaz's home 2x per week, as well as there will be a home health aide going to her house a couple times a week. Yaz has some PT exercises that she was given by the correction PT and she willcontinue to do those at home. They are wondering if a PT could come out to her house to assess her home program and try and work Yaz up to her goals of being able to walk on the treadmill and to be able to go up and down stairs. Message: Advice/Action: Source used: ( ) Verbalizes [...] back cell phone number ( ) Source: [facility] POWERCHART Document Id: [id number] Miscellaneous - Yobani Man M.D. - 05/27/2012 5:49 PM CDT [place] [address] Visit Information Name: YAZ SANTAMARIA [facility] Number: [id number] Current Date: 05/27/2012 17:49:46 Physicians Attending Provider: YOBANI MAN MD Primary [...] Upcoming Appointments Date Time Location Reason Provider 06/26/2012 10:30 FBCV PM&R rc Yobani Man MD Your Goals/Additional instructions: Source: [facility] POWERTypekit Document Id: [id number] Miscellaneous - Yobani Man M.D. - 05/27/2012 5:49 PM CDT [place] [address] Visit Information Name: DARLINE YAZ [facility] Number: [id number] Visit Date: 05/27/2012 17:49:45 Attending Provider: YOBANI MAN MD Primary Care [...] your provider for clarification. Additional Information: Source: [facility] POWERCHART Document Id: [id number] Miscellaneous - Francoise Avila P.A.-C. - 05/27/2012 4:12 PM CDT Adult Assistant Professor Of Philosophy Intake/History Adult Assistant Professor Of Philosophy Intake/History Entered On: 05/27/2012 16:14 CDT Performed On: 05/27/2012 16:12 CDT by FARNCOISE AVILA Intake Systolic Blood Pressure : 128mmHg Diastolic Blood Pressure : 70mmHg NIBP Mean : 89mmHg BP Location : Right upper extremity Blood Pressure Cuff Size : Large Actual Weight : 117kg(Converted to: 257lb 15oz) Weight Source : Standing scale Dosing Weight Clinic : 117.00kg FRANCOISE AVILA - 05/27/2012 16:12 CDT General Info Information Given By : Patient Preferred Communication Mode : Verbal Languages : Italian FRANCOISE AVILA - 05/27/2012 16:12 CDT Subjective Pain Symptoms : No FRANCOISE AVILA - 05/27/2012 16:12 CDT Dependent Habits Tobacco Use/Currently Using : No Exposure to Tobacco Smoke : Other: never Smoking Status : Never smoker FRANCOISE AVILA - 05/27/2012 16:12 CDT Allergy Allergies (Active) penicillins Estimated Onset Date: Unspecified ; Created By: FRANCOISE AVILA; Reaction Status:Active ; Category: Drug ; Substance: penicillins ; Type: Allergy ; Updated By: FRANCOISE AVILA; Reviewed Date: 03/05/2012 14:12 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
--- OUTSIDE RECORDS SUMMARY | 2022-01-12 12:42 | XMS_ITS | Encounter Summary ---
:1955 Author Organization [facility] Address [address] [place] [address] Care Team Providers Name Role Phone Unavailable Primary Care Provider Unavailable Encounter Details Date Type Department Care Team Description 08/23/2013 Hospital Encounter HX [facility] Guido Man M.D. [address] [place] [address], [address] [place] [address] (Wo rk) Social History Tobacco [...] do you attend yazidi or Never 2021 gnosticism services? Do you [...] Sign Reading Time Taken Comments Blood Pressure 134/64 08/23/2013 11:08 AM CDT Pulse - - Temperature - - Respiratory Rate - - Oxygen Saturation - - Inhaled Oxygen Concentration - - Weight 121 kg (266 lb 8.6 oz) 08/23/2013 11:08 AM CDT Height - - Body Mass Index 39.48 11/13/2012 12:52 PM CDT documented in this [...] encounter Progress Notes Yobani Man M.D. - 08/23/2013 10:31 AM CDT [id number] CHIEF COMPLAINT/REASON FOR VISIT Low back pain. HISTORY OF PRESENT ILLNESS Ms. Santamaria returns today. On June 25 performed bilateral sacroiliac joint corticosteroid injections and this helped her. She had been doing well, but then on July 21 she was walking and felland landed on her face and had received multiple stitches above her lip as well as had several abrasions. She reports that this exacerbated her low back pain and the pain associated with her fibromyalgia. She has been having increased discomfort since that time. She is describing pain primarily located in the left side of her low back as well as in the mid portion of her lumbar spine. She can occasionally have pain radiating to the left gluteal region but that is not frequent. She denies any pain radiating distal to the gluteal region. She denies any change in bowel or bladder habits or fevers or chills. She has been continuing to use her Lyrica as well as Lidoderm patch and oxycodone. PHYSICAL EXAMINATION GENERAL: Pleasant 58-year-old female in no acute distress. GAIT: She has a lisp today. SPINE: Minus 1 global decreased lumbar spine range of motion. PALPATION: There is tenderness to palpation over the left greater than right lumbar paraspinals. There is mild tenderness to palpation over left greater than right sacroiliac joint region. EXTREMITY STRENGTH: All major muscle groups of the lower extremities have normal and symmetric muscle strength, bulk and tone. REFLEXES: Lower extremity muscle stretch reflexes are physiologic and symmetric. Plantar responses downgoing bilaterally. IMPRESSION/REPORT/PLAN 1. Low back pain. 2. Lumbar spondylosis. Ms. Santamaria's neurologic examination is unchanged. I feel that her symptoms are multifactorial. She has known multilevel degenerative changes in her lumbar spine. She also has a known L2-L3 diskherniation. I also feel she has significant myofascial pain currently with her tenderness in the region of her left lower paraspinals on her examination today. PLAN: 1. I am going have Ms. Santamaria continue working in physical therapy as she has found this very helpful over the past couple of weeks and she initiated that when we talked with her on the phone. This is primarily an aquatic based therapy program. I am also going to give her a prescription for anAspen QuikDraw brace or equivalent which I think could be very helpful for her. 2. We discussed having her work with a chiropractor to perform myofascial release techniques with her myofascial pain that she is experiencing. Ms. Santamaria is going to arrange for that appointment. She did work with her chiropractor immediately after the fall and has found this very helpful in the past when she has had an increase in her low back pain. 3. I will plan to see Ms. Santamaria back in 3 weeks as she is planning on going on a trip in September for several weeks and so I will see her back before she leaves on that trip. 4. Ms. Santamaria also knows to contact me prior to that time if she notes any worsening or worrisome symptoms which we went over in detail today. Ms. Santamaria voiced agreement and understanding of this plan. Total time 25 minutes, counseling time 15 minutes. Yobani Man M.D./veena Electronically Signed By: YOBANI MAN MD On: 08/25/2013 11:05 AM Modified by and Electronically Signed by: YOBANI MAN MD On: 08/25/2013 11:05 AM Source: [facility] MHSDOLBEYNONRADSYS Document Id: [id number] documented in this encounter Miscellaneous Notes Miscellaneous - Samara Manjarrez R.N. - 09/01/2013 8:50 AM CDT Lyrica Document Contains Addenda Addendum by NBA BENSON on 02 September 2013 08:47:44 CDT Done. Addendum by YOBANI MAN MD on 01 September 2013 17:39:02 CDT From: YOBANI MAN MD To: NBA BENSON; Sent: 09/01/2013 17:39:02 CDT Subject: FW: Lyrica Please call. Thanks. Addendum by YOBANI MAN MD on 01 September 2013 17:38:48 CDT Submitted: Order:pregabalin (Lyrica 150 mg oral capsule) 1 cap(s) PO 2xDay Qty: 60 cap(s) Refills: 5 Substitutions Allowed Don't Print - called to pharmacy (Rx) Signed by YOBANI MAN MD 09/01/2013 17:38:37 From: SAMARA MANJARREZ ([facility] Refill) To: YOBANI MAN MD; Sent: 09/01/2013 08:50:22 CDT Subject: Lyrica Caller is: ( ) Patient ( ) Mother ( ) Father ( ) Spouse ( ) Daughter ( ) Son ( [facility] ) Pharmacy ( ) Other: Provider: [facility]: Name of Medications Needing Refill: Lyrica 150 mg Last Refill Date: 08/02/13 qty 60 Additional Information: 1 cap po BID Last / Future Appointment: 08/23/13; 09/09/13 Disposition: ( x ) Send to Pharmacy ( ) Call to Pharmacy ( ) Patient will cone picker Script ( ) Mail Rxto Patient Source: [facility] POWERCHART Document Id: [id number] Electronically signed by Pryia [facility] Dining Car Conductor [id number] at 08/13/2016 9:12 PM CDT Miscellaneous - Yobani Man M.D. - 08/23/2013 11:32 AM CDT Ambulatory Patient Summary [address] [id number] Visit Information Name: YAZ SANTAMARIA [facility] Number: [id number] Current Date: 08/23/2013 11:32:45 Physicians Attending Provider: YOBANI MAN MD Primary [...] the Following Medications: Medication list as of 08-23-13 11:32 Attention: If you have any medications at [...] Electronically Signed By: YOBANI MAN MD Signed On:23-AUG-2013 11:32:12 Your Allergies & Intolerances Substance Reaction Symptoms Category Comments penicillins Drug Your Problem List Problem Status Onset Comments No Problems found Your Upcoming Appointments Date Time Location Reason Provider No Appointments found Attention: Contact your local Clinic if further appointment detail needed. Your Goals/Additional instructions: Source: [facility] POWERCHART Document Id: [id number] Miscellaneous - Yobani Man M.D. - 08/23/2013 11:32 AM CDT Ambulatory Discharge Medication List [address] [id number] Visit Information Name: YAZ SANTAMARIA [facility] Number: [id number] Visit Date: 08/23/2013 11:32:42 Attending Provider: YOBANI MAN MD Primary Care [...] the Following Medications: Medication list as of 08-23-13 11:32 Attention: If you have any medications at [...] Electronically Signed By: YOBANI MAN MD Signed On:23-AUG-2013 11:32:12 Additional Information: Source: [facility] POWERCHART Document Id: [id number] Miscellaneous - Nba Benson - 08/23/2013 11:08 AM CDT Adult Wire Roller Intake/History Document Has Been Updated Adult Wire Roller Intake/History Entered On: 08/23/2013 11:10 CDT Performed On: 08/23/2013 11:08 CDT by NBA BENSON Intake Systolic Blood Pressure : 134 mmHg Diastolic Blood Pressure : 64 mmHg NIBP Mean : 87 mmHg BP Location : Left upper extremity Blood Pressure Cuff Size : Large Actual Weight : 120.9 kg(Converted to: 266 lb 9 oz) Weight Source : Standing scale Dosing Weight Clinic : 120.9 kg NBA BENSON - 08/23/2013 11:08 CDT General Info Information Given By : Patient Preferred Communication Mode : Verbal Languages : [place] Citizen NBA BENSON - 08/23/2013 11:08 CDT Subjective Pain Symptoms : No NBA BENSON - 08/23/2013 11:08 CDT Dependent Habits Tobacco Use/Currently Using : No Exposure to Tobacco Smoke : Other: never Smoking Status : Never smoker NBA BENSON - 08/23/2013 11:08 CDT Allergy (As Of: 08/23/2013 11:10:08 CDT) Allergies (Active) penicillins Estimated Onset Date: Unspecified ; Created By: FRANCOISE AVILA; Reaction Status:Active ; Category: Drug ; Substance: penicillins ; Type: Allergy ; Updated By: FRANCOISE AVILA; Reviewed Date: 08/23/2013 11:06 CDT Source: [facility] Price [employer]CHART Document Id: [id number]!20 documented in this encounter Plan of Treatment Not on filedocumented as of this encounter Visit Diagnoses Not on filedocumented in this encounter
--- OUTSIDE RECORDS SUMMARY | 2022-01-12 12:43 | XMS_ITS | Encounter Summary ---
:1955 Author Organization [facility] Address [address] [place] [address] Care Team Providers Name Role Phone Unavailable Primary Care Provider Unavailable Encounter Details Date Type Department Care Team Description 03/20/2012 Hospital Encounter HX [facility] Guido Man M.D. [address] [place] [address], [address] [place] [address] (Wo rk) Social History Tobacco [...] do you attend baptist or Never 2021 pentecostal services? Do you [...] Reading Time Taken Comments Blood Pressure 138/70 03/20/2012 11:43 AM CHARGING MANIPULATOR Pulse - - Temperature - - Respiratory Rate - - Oxygen Saturation - - Inhaled Oxygen Concentration - - Weight 118 kg (259 lb 11.2 oz) 03/20/2012 11:43 AM CHARGING MANIPULATOR Height - - Body Mass Index 38.46 12/18/2011 7:09 AM CDT documented in this [...] encounter Progress Notes Yobani Man M.D. - 03/20/2012 11:15 AM CST [id number] CHIEF COMPLAINT / REASON FOR VISIT Follow-up right greater than left foot pain. HISTORY OF PRESENT ILLNESS Ms. Caro returns today in followup. She had a MRI performed of the right foot on March 11, 2012 in [place]. I reviewed the images with her in detail. Significant findings include mildintermetatarsal bursa inflammation involving the second web space. There is no evidence of neuroma formation. There is no osseous abnormalities present. 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 Ms. Caro's symptoms have not changed since I saw her just previous to the MRI. PHYSICAL EXAMINATION None performed today. IMPRESSION/REPORT/PLAN 1. Right greater than left foot pain 2. Intermetatarsal bursitis 3. Bilateral plantar fasciitis Ms. Caro has had persistent pain between the second and third metatarsal heads on the right greater than left. Her MRI does not show evidence of a Giron's neuroma, but it does show intermetatarsal bursitis between the second and third metatarsal heads. PLAN 1. We are going to proceed today with ultrasound guided bilateral intermetatarsal bursa corticosteroid injections between the second and third intermetatarsal heads. Please see separate note dictated for details of this procedure. 2. We will plan on being in contact with Ms. Caro approximately two weeks following today's procedure and she knows to be in contact with me prior to that time if she notes any worsening orworrisome symptoms which we went over in detail today. She voiced agreement and understanding with this plan. Yobani Man M.D./madelaine Electronically Signed By: YOBANI MAN MD On: 03/30/2012 10:42 AM Modified by and Electronically Signed by: YOBANI MAN MD On: 03/30/2012 10:42 AM Source: [facility] MHSDOLBEYNONRADSYS Document Id: [id number] GING MANIPULATOR documented in this encounter Procedure Notes Yobani Man M.D. - 03/20/2012 12:00 AM CST 1RPT DIAGNOSIS 1. Intermetatarsal bursitis 2. Foot pain HISTORY/INDICATION Please see my clinical note dated 03/20/2012 for more details of the HPI. PROCEDURE PERFORMED 1. Ultrasound guided right second-third intermetatarsal bursa corticosteroid injection. 2. Ultrasound guided left second-third intermetatarsal bursa corticosteroid injection. PATIENT EDUCATION Ready to learn. No apparent learning barriers [...] Signed informed consent was obtained. DESCRIPTION OF PROCEDURE 1. Ultrasound guided right second-third intermetatarsal bursa corticosteroid injection. Prior to the start of the procedure, a pause was performed to confirm the patient's name, affected area and proposed procedure. The patient was placed in a supine position. An optimal ultrasound image of the second and third metatarsal heads and intermetarsal bursa area were obtained with a 12-5 linear transducer. There was an interdigital artery seen to be in the planned trajectory of the needle using a distal to proximal approach dorsally. Several different images were obtained and after discussing this with Candy Multani, it was decided to perform the injection via a plantar approach because of the location of the artery. A pre-procedure image was saved to the hard drive. Following this, the area was prepped with a ChloraPrep scrub, then re- examined using the same transducer, sterile ultrasound transducer cover and sterile ultrasound transducer gel. Real time ultrasound was utilized to guide a 27 gauge 1 1/4 inch needle into the intermetatarsal bursa region between the second and third metatarsal heads in the short axis of the transducer using a plantar approach. After visualization of the tip in the target area and negative aspiration for blood,a mixture of 0.5 cc's of 1% Lidocaine and 0.5 cc of 6 mg. per cc of Celestone was delivered to the target area while observing injectate flow with real time ultrasonographic imaging. The injectate was delivered without complications. 0 cc's of Celestone was wasted due to single use vials for infectioncontrol purposes. DESCRIPTION OF PROCEDURE 2. Ultrasound guided left second-third intermetatarsal bursa corticosteroid injection. Prior to the start of the procedure, a pause was performed to confirm the patient's name, affected area and proposed procedure. The patient was placed in a supine position. An optimal ultrasound image of the second and third metatarsal heads and intermetarsal bursa area were obtained with a 12-5 linear transducer. Ms. Caro tolerated the procedure well on the right, so it was decided to usethe same approach on the left. A pre-procedure image was saved to the hard drive. Following this, the area was prepped with a ChloraPrep scrub, then re-examined using the same transducer, sterile ultrasound transducer cover and sterile ultrasound transducer gel. Real time ultrasound was utilized to guide a 27 gauge 1 1/4 inch needle into the intermetatarsal bursa region between the second and third metatarsal heads in the short axis of the transducer using a plantar approach. After visualization of the tip in the target area and negative aspiration for blood, a mixture of 0.5 cc's of 1% Lidocaine and 0.5 cc of 6 mg. per cc of Celestone was delivered to the target area while observing injectate flow with real time ultrasonographic imaging. The injectate wasdelivered without complications. 0 cc's of Celestone was wasted due to single use vials for [...] activity for the rest of today. ADDITIONAL INSTRUCTIONS Ms. Caro will be in contact with us if she has any difficulty following today's procedure. Otherwise, we will plan on being in contact with her over the phone in two weeks to assess her progress. She voiced agreement and understanding with this plan. Yobani Man M.D./madelaine Electronically Signed By: YOBANI MAN MD On: 03/30/2012 10:41 AM Modified by and Electronically Signed by: YOBANI MAN MD On: 03/30/2012 10:41 AM Source: [facility] MHSDOLBEYNONRADSYS Document Id: [id number] GING MANIPULATOR documented in this encounter Miscellaneous Notes Telephone Encounter - Francoise Avila P.A.-C. - 04/14/2012 10:02 AM CHARGING MANIPULATOR Phone Message Document Contains Addenda Addendum by YOBANI MAN MD on 14 April 2012 14:51:51 CHARGING MANIPULATOR From: YOBANI MAN MD To: FRANCOISE AVILA; Sent: 04/14/2012 14:51:51 CHARGING MANIPULATOR Subject: RE: Phone Message That would be reasonable. Please arrange. From: FRANCOISE AVILA To: YOBANI MAN MD; Sent: 04/14/2012 10:02:28 CHARGING MANIPULATOR Subject: Phone Message Caller is: ( ) Patient ( ) Mother ( ) Father ( ) Spouse ( ) Daughter ( ) Son ( ) Pharmacy ( ) Other: Physician: [facility] Patient MRN #: Reason for Call: Yaz is wondering if she could be scheduled for the EMG now to determine if she has neuropathy. Message: Advice/Action: Source used: ( ) Verbalizes [...] back cell phone number ( ) Source: [facility] POWERCHART Document Id: [id number] Electronically signed by Conversion, [facility] Paragliding Instructor [id number] at 08/14/2016 2:29 PM CDT Telephone Encounter - Francoise Avila P.A.-C. - 04/01/2012 10:25 AM CHARGING MANIPULATOR Phone Message From: FRANCOISE AVILA To: YOBANI MAN MD; Sent: 04/01/2012 10:25:31 CHARGING MANIPULATOR Subject: Phone Message Caller is: ( ) Patient ( ) Mother ( ) Father ( ) Spouse ( ) Daughter ( ) Son ( ) Pharmacy ( ) Other: Physician: [facility] Patient MRN #: Reason for Call: Yaz has been fitted for the walking boot. She is figuring that she will not be going out of her house much now that she has this and is wondering if she could be put on some home health care, so she could have a physical therapist come to her house instead of having to go there. Message: Advice/Action: Source used: ( ) Verbalizes [...] back cell phone number ( ) Source: [facility] POWERCHART Document Id: [id number] Telephone Encounter - Yobani Man M.D. - 03/31/2012 12:00 AM CST [id number] I phoned Ms. Caro today. She reports that she is no longer having any of the post injection symptoms that she was having in her bilateral feet. However, she does not feel that the injectionshave been overly helpful and she feels that her symptoms are basically the same as they were prior to the injections that were performed. She has been more active including walking and yesterday went to the [employer] and did have some increased discomfort after that, but nothing that is out of theordinary for her with respect to her pain. She again denies any swelling, warmth, or erythema about the injection site. She reports that basically her symptoms are exactly the same as they were prior to the procedure. After discussing things with her, we have decided to place her in a CAM walker on the right to completely rest the right foot without putting any pressure on it for the next few weeks. It is possible that some of her symptoms may represent a peripheral neuropathy as well in addition tothe intermetatarsal bursitis. She has already using gabapentin 300 mg 4 times a day and we potentially may increase this when I see her back in follow-up depending on how she is doing. I will plan on seeing Ms. Caro back in follow-up in 3 weeks to assess her progress. She knows to be in contact with me prior to that time if she notes any worsening or worrisome symptoms which we went over in detail today. She voiced agreement and understanding with this plan. Yobani Man M.D./madelaine Electronically Signed By: YOBANI MAN MD On: 04/06/2012 10:33 AM Modified by and Electronically Signed by: YOBANI MAN MD On: 04/06/2012 10:33 AM Source: [facility] MHSDOLBEYNONRADSYS Document Id: [id number] GING MANIPULATOR Telephone Encounter - Yobani Man M.D. - 03/27/2012 12:00 AM CST [id number] I spoke with Ms. Caro on the phone today. She reports she is much improved from when I talked to her earlier this week. She rates her pain on average now as a 3/10. She has been able to sleep through the night without difficulties. She is no longer having to use any opioid medication. She has used one ibuprofen earlier today and has not used any since that time. She is able to walk much better than she was earlier this week. She reports she still does have pain but is much improved over where it was earlier this week when I spoke with her. She again denies any warmth or erythema about either injection site. She denies any new paresthesias in the feet. I will plan on being in contact with her again next week to assess her progress and she knows to be in contact with me prior to that time if she notes any worsening or worrisome symptoms which we went over in detail today. She voiced agreement and understanding with this plan. Yobani Man M.D./madelaine Electronically Signed By: YOBANI MAN MD On: 04/06/2012 08:38 AM Modified by and Electronically Signed by: YOBANI MAN MD On: 04/06/2012 08:38 AM Source: [facility] MHSDOLBEYNONRADSYS Document Id: [id number] GING MANIPULATOR Miscellaneous - Francoise Avila P.A.-C. - 03/25/2012 11:09 AM CST Reminder Msg From: FRANCOISE AVILA To: FRANCOISE AVILA; Sent: 03/25/2012 11:09:38 CHARGING MANIPULATOR Show up: 04/03/2012 11:09:00 CHARGING MANIPULATOR Subject: Reminder Msg Please Remember to: see how B feet are feeling after inj PATIENT: ( ) Call Patient ( ) Ask Patient to ( ) ( ) Call Relative ( ) Schedule Patient ( ) ( ) Call for Reject Opener ( ) Follow up on Results ( ) Other: PROVIDER: ( ) Call Physician ( ) Call Pharmacist ( ) Call Lab ( ) Other: Special Instructions: Comments: Source: [facility] POWERCHART Document Id: [id number] Electronically signed by Priya [facility] Paragliding Instructor [id number] at 08/14/2016 2:29 PM CDT Telephone Encounter - Yobani Man M.D. - 03/24/2012 12:00 AM CST [id number] I returned a telephone call today to Ms. Caro. She reports she has been having increased pain since the injections on March 20, in her feet. She reports that she has not noted any warmth, erythema or swelling at the injection sites. She reports that the pain is in the same spot as it has always been previous to the injections, but it just feels more intense and it is more a sharp stabbing pain now than previously. She denies any new paresthesias in the feet. She reports that whengloria is sitting without pressure on her feet, she would rate the pain at its worst as a 4/10 but whengloria starts to ambulate the pain can increase to a 6/10 with a sharp stabbing sensation that she can feel at that time. Also, towards the end of the day the pain also tends to increase. She does not have any pain that wakes her from sleep. She denies any fevers or chills. I discussed with her that thismay be related to a post injection flare from the corticosteroid or potentially irritation from the needle itself. Ms. Caro will continue to ice and rest for the next few days. I will plan on being in contact with her at the end of this week to discuss how she is progressing. If she is still having the same symptoms, we will bring her back to the clinic to evaluate her further. She was comfortable with this plan and she also knows to be in contact with me if she notes any change in her symptoms. Yobani Man M.D./madelaine Electronically Signed By: YOBANI MAN MD On: 03/30/2012 10:35 AM Modified by and Electronically Signed by: YOBANI MAN MD On: 03/30/2012 10:35 AM Source: [facility] MHSDOLBEYNONRADSYS Document Id: [id number] GING MANIPULATOR Miscellaneous - Yobani Man M.D. - 03/20/2012 2:25 PM CST [place] [address] Visit Information Name: YAZ CARO [facility] Number: [id number] Current Date: 03/20/2012 14:25:49 Physicians Attending Provider: YOBANI MAN MD Primary Care Provider: ELVIA BOND MD Your Medications Here is a list of your medications. It is important to take your medications as directed. Use a pillbox or chart to help remind you to take your medications. Please let your doctor or nurse know if you have problems taking your medications. Medication/Strength Dose Route Frequency Indications/Special Instructions/Comments hydrOXYzine (hydrOXYzine pamoate 25 mg oral capsule) [...] No Appointments found Your Goals/Additional instructions: Source: [facility] POWERCHART Document Id: [id number] GING MANIPULATOR Miscellaneous - Yobani Man M.D. - 03/20/2012 2:25 PM CST [place] [address] Visit Information Name: BETHANYIEYAZ [facility] Number: [id number] Visit Date: 03/20/2012 14:25:47 Attending Provider: YOBANI MAN MD Primary Care [...] medications. Medication/Strength Dose Route Frequency Indications/Special Instructions/Comments hydrOXYzine (hydrOXYzine pamoate 25 mg oral capsule) [...] your provider for clarification. Additional Information: Source: [facility] 2sms Document Id: [id number] GING MANIPULATOR Miscellaneous - Francoise Avila P.A.-C. - 03/20/2012 11:43 AM CST Adult Shopper Marketing Manager Intake/History Adult Shopper Marketing Manager Intake/History Entered On: 03/20/2012 11:44 CHARGING MANIPULATOR Performed On: 03/20/2012 11:43 CHARGING MANIPULATOR by FRANCOISE AVILA Intake Systolic Blood Pressure : 138mmHg Diastolic Blood Pressure : 70mmHg NIBP Mean : 93mmHg BP Location : Right upper extremity Blood Pressure Cuff Size : Large Actual Weight : 117.8kg(Converted to: 259lb 11oz) Weight Source : Standing scale Dosing Weight Clinic : 117.80kg FRANCOISE AVILA - 03/20/2012 11:43 CHARGING MANIPULATOR Subjective Pain Symptoms : No FRANCOISE AVILA - 03/20/2012 11:43 CHARGING MANIPULATOR Dependent Habits Tobacco Use/Currently Using : No Exposure to Tobacco Smoke : Other: never Smoking Status : Never smoker FRANCOISE AVILA - 03/20/2012 11:43 CHARGING MANIPULATOR Allergy Allergies (Active) penicillins Estimated Onset Date: Unspecified ; Created By: FRANCOISE AVILA; Reaction Status:Active ; Category: Drug ; Substance: penicillins ; Type: Allergy ; Updated By: FRANCOISE AVILA; Reviewed Date: 03/05/2012 14:12 CHARGING MANIPULATOR Source: [facility] 2sms Document Id: [id number] GING MANIPULATOR documented in this encounter Plan of Treatment Not on filedocumented as of this encounter Visit Diagnoses Not on filedocumented in this encounter
--- OUTSIDE RECORDS SUMMARY | 2022-01-12 12:43 | XMS_ITS | Encounter Summary ---
:1955 Author Organization [facility] Address [address] [place] [address] Care Team Providers Name Role Phone Unavailable Primary Care Provider Unavailable Encounter Details Date Type Department Care Team Description 12/02/2011 Hospital Encounter HX NO MAPPING Social History [...] do you attend cheondoism or Never 2021 buddhist services? Do you [...]
--- OUTSIDE RECORDS SUMMARY | 2022-01-12 12:43 | XMS_ITS | Encounter Summary ---
:1955 Author Organization [facility] Address [address] [place] [address] Care Team Providers Name Role Phone Unavailable Primary Care Provider Unavailable Encounter Details Date Type Department Care Team Description 07/30/2011 Hospital Encounter HX [facility] Guido Man M.D. [address] [place] [address], [address] [place] [address] (Wo rk) Social History [...] do you attend taoist or Never 2021 judaism services? Do you [...] Sign Reading Time Taken Comments Blood Pressure 110/64 07/30/2011 10:49 AM CDT Pulse - - Temperature - - Respiratory Rate - - Oxygen Saturation - - Inhaled Oxygen Concentration - - Weight 108 kg (238 lb 8.6 oz) 07/30/2011 10:49 AM CDT Height - - Body Mass Index - [...] encounter Progress Notes Yobani Man M.D. - 07/30/2011 12:00 AM CDT [id number] CHIEF COMPLAINT / REASON FOR VISIT Right knee pain. HISTORY OF PRESENT ILLNESS Ms. Santamaria is a pleasant 56-year-old female who I have followed for a variety of different musculoskeletal issues in the past. I followed her for left knee pain as she is status post left total arthroplasty. I have also followed her for right knee pain in the past as well and she has known osteoarthritis in the right knee. Her pain has been worsening over the past month and so she saw her primary care physician in [place]. He ordered a MRI of the right knee and she brought the images in for my review today. This was performed on July 09, 2011. This showed several findings included a large effusion with at least one 8 mm loose body. There is reactive bone changes in the lateral patellofemoral compartments with evidence of a small horizontal inferior articular surface tear of the junction of the posterior horn and body of the medial meniscus. There is an 8 x 10 mm full thickness articular cartilage defect with superior portion over the medial condyle. In the lateral compartment, there is horizontal tear involving all portions lateral meniscus. There is a 10 x 20 mm full thickness articular cartilage defect of the superior portion of the lateral condyle. There is grade 3-4 articular cartilage change involving the patellofemoral compartment. Ms. Santamaria reports that the majority of her pain is located in the medial aspect of the right knee but encompasses the entire anterior knee. The pain is worse when she is standing or walking and she actually called to request a manual wheelchair as it is very difficult for her to ambulate because of the discomfort and so I did write this for her and she is using that today. She has noted swelling in the knee without any warmth or erythema. She reports because of the way that she has been having to walk, she has been experiencing pain again in the left knee as well as increased low back pain. She denies any catching or locking in the knee but reports she has not been doing much weightbearing to the knee for the past week. PHYSICAL EXAM GENERAL: Pleasant 56-year-old female in no acute distress. GAIT: Antalgic favoring the right lower extremity. MUSCULOSKELETAL: Knee: There is a 2+ effusion present in the right knee without any warmth or erythema. Range of motion is from just short full extension to 115 degrees of flexion. There is tenderness to palpation over the medial greater than lateral joint line. There is tenderness to palpation over the medial and lateral patellar facet region. Negative bounce home. Babatunde's causes pain throughout the anterior knee without palpable click. Positive patellar grind. IMPRESSION/REPORT/PLAN 1. Right knee pain 2. Right knee DJD 3. History of left total knee arthroplasty Ms. Santamaria's right knee pain is most consistent with osteoarthritis. Her MRI shows degenerative changes in all three compartments with a loose body and a large tear of the lateral meniscus. PLAN 1. I discussed with her having her meet with the orthopedic surgeon who performed her left total knee arthroplasty. 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 Therefore, she would prefer to continue with conservative options at the current time. With her significantly decreased mobility and her findings on examination today as well as her MRI findings, we are going to proceed today with a right knee aspiration and corticosteroid injection. Please see separate note dictated for details of this procedure. Hopefully, that will decrease her pain and allow her to be more active as I think that was contributing to her increased low back pain as she has been less mobile than she typically is. 2. We will plan on being in contact with Ms. Santamaria over the phone in 2 weeks to assess her progress following today's procedure and she knows to be in contact with me prior to that time if she notes any worsening or worrisome symptoms which we went over in detail today. She voiced agreement and understanding with this plan. NABILA/madelaine Signed Yobani Man M.D. Physical Medicine & Rehabilitation Electronically Signed By: YOBANI MNA MD On: 08/09/2011 11:52 AM Modified by and Electronically Signed by: YOBANI MAN MD On: 08/09/2011 11:52 AM Source: [facility] MHSDOLBEYNONRADSYS Document Id: [id number] Yobani Man M.D. - 07/30/2011 12:00 AM CDT [id number] DIAGNOSIS 1. Right knee pain 2. Right knee DJD HISTORY/INDICATION Please see my clinical note dated 07/30/2011 for more details of the HPI. PROCEDURE PERFORMED Ultrasound guided right knee aspiration and corticosteroid injection. PATIENT EDUCATION Ready to learn. No apparent learning barriers were identified. Learning preferences include listening. Explained diagnosis and treatment of plan. The patient expressed understanding of the content. Following denial of allergy and review of potential side effects and complications including but not necessarily limited to infection, allergic reaction, local tissue breakdown, systemic effects of corticosteroids, elevation of blood glucose, injury to soft tissues and/or nerves and seizure, the patient indicated understanding and agreed to proceed. Signed informed consent was obtained. DESCRIPTION OF PROCEDURE Prior to the start of the procedure, a pause was performed to confirm the patient's name, affected area and proposed procedure. The patient was placed in a supine position. An optimal ultrasound image of the right knee was obtained with a 12-5 linear transducer. A pre-procedure image was saved to the hard drive. Following this, the area was prepped with a ChloraPrep scrub, then re-examined using the same transducer, sterile ultrasound transducer cover and sterile ultrasound transducer gel. Next, 3 cc's of 1% Lidocaine was used for local anesthesia using a 27 gauge 1 1/4 inch needle. Following delivery of local anesthesia, real time ultrasound was utilized to guide a 19 gauge 2 inch needle into the lateral suprapatellar recess using a lateral to medial approach in the long axis of the transducer at the area of maximal effusion. After visualization of the tip in the target area, 27 cc of typical appearing synovial fluid was aspirated. There was no further effusion seen to be remaining in the knee. At this point, the syringe containing the synovial fluid was disconnected from the needle while the needle tip remained in the lateral suprapatellar recess. At this point, the syringe containing 3 cc's of 1% Lidocaine and 1 cc of 40 mg. per cc of Depo-Medrol was then attached to the needle. After reconfirming the needle tip placement within the lateral suprapatellar recess, this mixture was delivered to the target area while observing injectate flow with real time ultrasonographic imaging. The injectate was delivered without complications. 0 cc's of Depo-Medrol was wasted due to single use vials [...] the rest of today. ADDITIONAL INSTRUCTIONS Ms. Santamaria will be in contact with us if she has any difficulty following today's procedure. Otherwise, we will plan on being in contact with her over the phone in two weeks to assess her progress. She voiced agreement and understanding with this plan. JMP/cmt Signed Yobani Man M.D. Physical Medicine & Rehabilitation Electronically Signed By: YOBANI MAN MD On: 08/09/2011 11:51 AM Modified by and Electronically Signed by: YOBANI MAN MD On: 08/09/2011 11:51 AM Source: [facility]SDOLBEY[facility]RAD[facility] Document Id: [id number] documented in this encounter Miscellaneous Notes Miscellaneous - Francoise Avila P.A.-C. - 09/11/2011 11:47 AM CDT Reminder Msg Document Contains Addenda Addendum by YOBANI MAN MD on 26 September 2011 09:03:10 CDT From: YOBANI MAN MD To: FRANCOISE AVILA; Sent: 09/26/2011 09:03:10 CDT Show up: 09/26/2011 09:02:00 CDT Subject: RE: Reminder Msg Thank you. We can discuss other options at that time for her back pain. Addendum by FRANCOISE AVILA on 26 September 2011 08:52:34 CDT From: FRANCOISE AVILA To: FRANCOISE AVILA; Sent: 09/26/2011 08:52:34 CDT Show up: 09/26/2011 08:38:00 CDT Subject: RE: Reminder Msg Mukherjee doesn't think that the back injections helped very much. 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 She would like to proceed with the cortisone injection in her knee,which is scheduled for 10/27. Addendum by FRANCOISE AVILA on 11 September 2011 12:04:19 CDT From: FRANCOISE AVILA To: FRANCOISE AVILA; Sent: 09/11/2011 12:04:19 CDT Show up: 09/25/2011 12:04:00 CDT Subject: RE: Reminder Msg [email or web address] the appointment is on 11/03 11 am From: FRANCOISE AVILA To: FRANCOISE AVILA; Sent: 09/11/2011 11:47:19 CDT Show up: 09/11/2011 11:46:00 CDT Subject: Reminder Please Remember to: see how she is feeling after back injections, also tell her she can have a knee injection in about 1 month. I have her scheduled for 10/27 11 am. PATIENT: ( ) Call Patient ( ) Ask Patient to ( ) ( ) Call Relative ( ) Schedule Patient ( ) ( ) Call for Pearl Hand ( ) Follow up on Results ( ) Other: PROVIDER: ( ) Call Physician ( ) Call Pharmacist ( ) Call Lab ( ) Other: Special Instructions: Comments: Source: [facility] POWERCHART Document Id: [id number] Electronically signed by Priya, [facility] Operations Director [id number] at 08/18/2016 12:11 AM CDT Miscellaneous - Francoise Avila P.A.-C. - 08/01/2011 1:29 PM CDT Reminder Msg Document Contains Addenda Addendum by YOBANI MAN MD on 21 August 2011 09:31:56 CDT From: YOBANI MAN MD To: FRANCOISE AVILA; Sent: 08/21/2011 09:31:56 CDT Show up: 08/21/2011 09:31:00 CDT Subject: RE: Reminder Msg Thank you. Addendum by FRANCOISE AVILA on 21 August 2011 09:27:39 CDT From: FRANCOISE AVILA To: YOBANI MAN MD; Sent: 08/21/2011 09:27:39 CDT Show up: 08/21/2011 09:27:00 CDT Subject: RE: Reminder Msg I will call her in a couple of weeks to see if she wants to proceed on September 10. Addendum by YOBANI MAN MD on 21 August 2011 09:08:36 CDT From: YOBANI MAN MD To: FRANCOISE AVILA; Sent: 08/21/2011 09:08:36 CDT Show up: 08/21/2011 09:08:00 CDT Subject: RE: Reminder Msg I would recommend waiting until she doesn't have to do as much for her . Thanks. Addendum by FRANCOISE AVILA on 21 August 2011 08:15:29 CDT From: FRANCOISE AVILA To: YOBANI MAN MD; Sent: 08/21/2011 08:15:29 CDT Show up: 08/21/2011 08:01:00 CDT Subject: RE: Reminder Msg Mukherjee says that he knee is feeling quite a bit better. She is taking care of her now after surgery which involves a lot of standing and bending. She isn't sure if she should have the back injection on the or if she should wait until she doesn't have to do so much bending and lifting. From: FRANCOISE AVILA To: FRANCOISE AVILA; Sent: 08/01/2011 13:29:51 CDT Show up: 08/15/2011 13:29:00 CDT Subject: Reminder Please Remember to: see how her R knee is feeling after inj PATIENT: ( ) Call Patient ( ) Ask Patient to ( ) ( ) Call Relative ( ) Schedule Patient ( ) ( ) Call for Pearl Hand ( ) Follow up on Results ( ) Other: PROVIDER: ( ) Call Physician ( ) Call Pharmacist ( ) Call Lab ( ) Other: Special Instructions: Comments: Source: [facility] POWERCHART Document Id: [id number] Electronically signed by Priya, [facility] Operations Director [id number] at 08/18/2016 12:11 AM CDT Miscellaneous - Yobani Man M.D. - 07/30/2011 2:17 PM CDT Ambulatory [place] [address] Visit Information Name: YAZ SANTAMARIA Current Date: 07/30/2011 14:17:03 Physicians Attending Provider: YOBANI MAN MD Primary Care Provider: PCP, UNASSIGNED Your Medications Here is a list of your medications. It is important to take your medications as directed. Use a pillbox or chart to help remind you to take your medications. Please let your doctor or nurse know if you have problems taking your medications. Medication/Strength Dose Route Frequency Indications/Special Instructions/Comments acetaminophen (Tylenol Arthritis Caplet 650 mg oral [...] No Appointments found Your Goals/Additional instructions: Source: [facility] POWERCHART Document Id: [id number] Yobani Brady M.D. - 07/30/2011 2:17 PM CDT [place] [address] Visit Information Name: YAZ SANTAMARIA Visit Date: 07/30/2011 14:17:02 Attending Provider: YOBANI MAN MD Primary Care Provider: PCP, UNASSIGNED YAZ SANTAMARIA has been given the following list of medications: Your Medications It is important to take your medications as directed. Use a pill box or chart to help remind you to take your medications. Please let your doctor or nurse know if you have problems taking your medications. Medication/Strength Dose Route Frequency Indications/Special Instructions/Comments acetaminophen (Tylenol Arthritis Caplet 650 mg oral [...] your provider for clarification. Additional Information: Source: [facility] POWERCHART Document Id: [id number] Any - Francoise Avila P.A.-C. 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 Mechanic Intake/History Entered On: 07/30/2011 10:49 CDT Performed On: 07/30/2011 10:49 CDT by FRANCOISE AVILA Intake Systolic Blood Pressure : 110mmHg Diastolic Blood Pressure : 64mmHg NIBP Mean : 79mmHg BP Location : Left upper extremity Blood Pressure Cuff Size : Large Actual Weight : 108.2kg(Converted to: 238lb 9oz) Weight Source : Standing scale Dosing Weight Clinic : 108.20kg FRANCOISE AVILA - 07/30/2011 10:49 CDT Subjective Pain Symptoms : No FRANCOISE AVILA - 07/30/2011 10:49 CDT Dependent Habits Tobacco Use/Currently Using : No Exposure to Tobacco Smoke : Other: never Smoking Status : Never smoker FRANCOISE AVILA - 07/30/2011 10:49 CDT Allergy Allergies (Active) penicillins Estimated Onset Date: Unspecified ; Created By: FRANCOISE AVILA; Reaction Status:Active ; Category: Drug ; Substance: penicillins ; Type: Allergy ; Updated By: FRANCOISE AVILA; Reviewed Date: 04/25/2011 13:43 [employer]SE [employer] Source: [facility] POWERCHART Document Id: [id number] CDT!16 documented in this encounter Plan of Treatment Not on filedocumented as of this encounter Visit Diagnoses Not on filedocumented in this encounter
--- OUTSIDE RECORDS SUMMARY | 2022-01-12 12:43 | XMS_ITS | Encounter Summary ---
:1955 Author Organization [facility] Address [address] [place] [address] Care Team Providers Name Role Phone Unavailable Primary Care Provider Unavailable Encounter Details Date Type Department Care Team Description 04/16/2012 - Hospital Encounter HX [facility] Vivek Man, 04/17/2012 [address], [address] [place] [address] (Wo rk) Social History Tobacco [...] do you attend rastafarian or Never 2021 mu-ism services? Do you [...]
--- OUTSIDE RECORDS SUMMARY | 2022-01-12 12:43 | XMS_ITS | Encounter Summary ---
:1955 Author Organization [facility] Address [address] [place] [address] Care Team Providers Name Role Phone Unavailable Primary Care Provider Unavailable Encounter Details Date Type Department Care Team Description 09/11/2011 Hospital Encounter HX NO MAPPING Clay Man M.D. [address] [place] [address] , [address] [place] [address] (Wo rk) Social History Tobacco [...] do you attend orthodoxy or Never 2021 sabianist services? Do you [...]
--- OUTSIDE RECORDS SUMMARY | 2022-01-12 12:43 | XMS_ITS | Encounter Summary ---
:1955 Author Organization [facility] Address [address] [place] [address] Care Team Providers Name Role Phone Unavailable Primary Care Provider Unavailable Encounter Details Date Type Department Care Team Description 10/09/2009 Hospital Encounter HX [facility] Guido Man M.D. [address] [place] [address], [address] [place] [address] (Wo rk) Social History Tobacco [...] do you attend mu-ism or Never 2021 moravian services? Do you [...] 0 04/17 100 mg capsule mouth daily. acyclovir (for_ZOVIRAX) Take by mouth [...] encounter Progress Notes Yobani Man M.D. - 10/09/2009 12:00 AM CDT [id number] IMPRESSION/REPORT/PLAN 1. Right knee pain 2. Right knee DJD 3. 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 Dilcia Multani's symptoms in the right knee are again consistent with osteoarthrosis as being the cause of her symptoms. She is considering the possibility of a right total knee arthroplasty in the future. I do feel that it would be reasonable today to proceed with a right knee aspiration and corticosteroid injection with her symptoms and the fact that she is going on vacation shortly and the fact that corticosteroid injections have helped in the past. PLAN 1. We will proceed today with an ultrasound guided right knee aspiration and corticosteroid injection. Please see separate note dictated for details of this procedure. 2. I will plan on being in contact with Ms. Dilcia Multani in 10 days to assess her progress following today's procedure. She voiced agreement and understanding of this plan. CHIEF COMPLAINT/REASON FOR VISIT Right knee pain HISTORY OF PRESENT ILLNESS Ms. Dilcia Multani is a pleasant 54 year old female who I have seen in the past for a variety of issues including bilateral knee pain. I referred her for consideration of a left total knee arthroplasty and she had this performed in April of this year. She did suffer a pulmonary embolism postoperatively. She is no longer on anticoagulation. She reports that her left knee has been doing very well following the surgery. As part of her surgery, she was doing leg lifts and she did suffer a strain in the hamstrings bilaterally but that has been improving with discontinuing those exercises. However, she has noted more right knee pain over the past few weeks and her and her are scheduled to go on vacation to [facility] for three weeks and she is inquiring today if she may be a candidate for a right knee intraarticular corticosteroid injection to decrease her pain so that she could enjoy her vacation. She is describing pain that is located primarily in the medial aspect of the right knee. This pain is worse with any going up and down stairs or any prolonged ambulation. She has noted some intermittent swelling in the knee without any warmth or erythema. She denies any catching or locking of the knee or any give way. PHYSICAL EXAM AREA EXAM TEXT GENERAL Well-developed, well-nourished individual in no acute distress. JOINTS Knee: There is well healed incision over the anterior left knee. On the right range of motion is from just short of full extension to 115 degrees. There is medial joint line tenderness especially posteriorly. There is no patellar facet or lateral joint line tenderness today. There is a 1+ effusion present in the knee without any warmth or erythema. No pain or laxity with varus or valgus stress testing. Negative bounce home. Babatunde's causes pain in the medial knee without a palpable click. JMP/madelaine Signed Yobani Man M.D. Physical Medicine & Rehabilitation CC: [facility] Electronically Signed By:YOBANI MAN MD On 10/11/2009 05:43 PM Modified by:YOBANI MAN MD On 10/11/2009 05:43 PM Source: [facility] [email or web address] Document Id: [id number] documented in this encounter Procedure Notes Yobani Man M.D. - 10/09/2009 12:00 AM CDT 1RPT DIAGNOSIS 1. Right knee pain 2. Right knee DJD HISTORY/INDICATION Please see my clinical note dated 10/09/09 for more details of the HPI. PROCEDURE PERFORMED Ultrasound guided right knee aspiration and intraarticular corticosteroid injection. PATIENT EDUCATION Ready to learn. [...] was obtained with a 12-5 linear transducer. There was a fairly large effusion present in the right knee. Therefore, I discussed with Ms. Dilcia Multani the benefits for using ultrasound to attempt to aspirate the effusion as well as to ensure proper needle placement and she voiced agreement and wished to proceed with the use of ultrasound. A pre-procedure image was saved to the [...] approach in the long axis of the transducer. After visualization of the tip in the target area, 34 cc's of typical appearing synovial fluid was aspirated. Following this, there was no further effusion seen to be present in the right knee. At this point, the syringe containing the synovial fluid was disconnected from the needle while the needle remained in the lateral suprapatellar recess. At this point, a syringe containing 3 cc's of 1% Lidocaine and 1 cc of 40 mg. per cc of Depo-Medrol was attached to the needle. After reconfirming needle placement within the lateral suprapatellar pouch, this injectate was delivered without complications. 0 cc's [...] the rest of today. ADDITIONAL INSTRUCTIONS Ms. Dilcia Multani will contact with us if she has any difficulty following today's procedure. Otherwise, I will plan on being in contact with her in 10 days to assess her progress. She voiced agreement and understanding of this plan. JMP/madelaine Signed Yobani Man M.D. Physical Medicine & Rehabilitation CC: [facility] Electronically Signed By:YOBANI MAN MD On 10/11/2009 05:43 PM Modified by:YOBANI MAN MD On 10/11/2009 05:43 PM Source: [facility] MHSDOLBEYNONRADSYS Document Id: [id number] documented in this encounter Miscellaneous Notes Miscellaneous - Francoise Avila P.A.-C. - 10/09/2009 3:38 PM CDT Reminder Msg Document Contains Addenda Addendum by YOBANI MAN MD on 24 October 2009 10:53:52 CDT From: YOBANI MAN MD To: FRANCOISE AVILA; Sent: 10/24/2009 10:53:52 CDT Subject: RE: Reminder Msg Exellent. Thank you for letting me know. Addendum by FRANCOISE AVILA on 20 October 2009 10:15:03 CDT From: FRANCOISE AVILA To: YOBANI MAN MD; Sent: 10/20/2009 10:15:03 CDT Subject: RE: Reminder Msg I spoke to Yaz today, her knee if feeling very good. She is able to do everything she wants to onher vacation. She is doing her knee exercises as well as some [place] [employer]. From: FRANCOISE AVILA To: FRANCOISE AVILA; Sent: 10/09/2009 15:38:05 CDT Show up: 10/19/2009 15:37:00 CDT Subject: Reminder Msg Please Remember to: call to see how Right knee is feeling after injection, and see how trip is going PATIENT: ( x ) Call Patient ( ) Ask Patient to ( ) ( ) Call Relative ( ) Schedule Patient ( ) ( ) Call for Stunt Man ( ) Follow up on Results ( ) Other: PROVIDER: ( ) Call Physician ( ) Call Pharmacist ( ) Call Lab ( ) Other: Special Instructions: Comments: Source: [facility] POWERCHART Document Id: [id number] Electronically signed by Priya [facility] [employer] [id number] at 08/19/2016 2:35 AM CDT Miscellaneous - Francoise Avila P.A.-C. - 10/09/2009 2:29 PM CDT Adult Wardrobe Consultant Intake/History Adult Wardrobe Consultant Intake/History Entered On: 10/09/2009 14:29 CDT Performed On: 10/09/2009 14:29 CDT by FRANCOISE AVILA Intake Systolic Blood Pressure: 104mmHg Diastolic Blood Pressure: 72mmHg NIBP Mean: 83mmHg BP Location: Left upper extremity Actual Weight: 110.900kg(Converted to: 244.493lb) Dosing Weight Clinic: 110.90kg FRANCOISE AVILA - 10/09/2009 14:29 CDT Subjective Pain Symptoms: No FARNCOISE AVILA - 10/09/2009 14:29 CDT Dependent Habits Tobacco Use/Currently Using: No FRANCOISE AVILA - 10/09/2009 14:29 CDT Allergies Allergies (Active) penicillins Estimated Onset Date: Unspecified ; Created By: FRANCOISE AVILA; Reaction Status:Active ; Category: Drug ; Substance: penicillins ; Type: Allergy ; Updated By: FRANCOISE AVILA; Reviewed Date: 10/09/2009 14:26 CDT [facility] [employer] Document Id: [id number] CDT!12 documented in this encounter Plan of Treatment Not on filedocumented as of this encounter Visit Diagnoses Not on filedocumented in this encounter
--- OUTSIDE RECORDS SUMMARY | 2022-01-12 12:43 | XMS_ITS | Encounter Summary ---
:1955 Author Organization [facility] Address [address] [place] [address] Care Team Providers Name Role Phone Unavailable Primary Care Provider Unavailable Encounter Details Date Type Department Care Team Description 12/18/2011 - Hospital Encounter HX RST UNIT 8-2 12/21/2011 ORTHOPEDICS Social History Tobacco Use Types Packs/Day Years [...] do you attend scientologist or Never 2021 cheondoism services? Do you [...] Sign Reading Time Taken Comments Blood Pressure 113/70 12/21/2011 3:36 AM NIBP - Value from CDT [facility]. Pulse 88 12/21/2011 3:36 AM Value from Ch artplus. CDT Temperature - - Respiratory Rate 18 12/21/2011 3:36 AM Value from C [facility]artplus. CDT Oxygen Saturation - - Inhaled Oxygen - - Concentration Weight 113 kg (250 lb 3.6 12/18/2011 7:09 AM Vital s ign result oz) CDT from [facility]. Height 175 cm (5' 8.9) 12/18/2011 7:09 AM Vital sig n result CDT from [facility]. Body Mass Index 37.06 12/18/2011 7:09 AM CDT documented in this [...] Procedure Name Priority Date/Time Associated Comments Diagnosis PROTHROMBIN TIME Routine 12/21/2011 4:42 AM Resul ts for this (PT), P CDT procedure are i n the results section. PROTHROMBIN TIME Routine 12/20/2011 4:37 AM Resul ts for this (PT), P CDT procedure are i n the results section. ELECTROLYTE (CHEM 4) Routine 12/19/2011 5:13 AM R esults for this PANEL, S/P CDT procedure are i n the results section. PROTHROMBIN TIME Routine 12/19/2011 5:12 AM Resul ts for this (PT), P CDT procedure are i n the results section. CBC WITHOUT Routine 12/19/2011 5:12 AM Results f or this DIFFERENTIAL, B CDT procedure ar e in the results section. DX KNEE UNILATERAL 2 Routine 12/18/2011 12:34 Res ults for this VIEWS PM CDT procedure are i n the results section. HEMOGLOBIN (HGB), Routine 12/18/2011 12:21 Result s for this POCT, B PM CDT procedure are i n the results section. PROTHROMBIN TIME Routine 12/18/2011 12:20 Results for this (PT), P PM CDT procedure are i n the results section. documented in this encounter Results (ABNORMAL) PT (Prothrombin Time) with INR (12/21/2011 4:42 AM CDT) [facility] [employer] Method Time Signature Prothrombin 20.9 (H) 9.5 - [facility] Time, P 13.[address] [facility] INR 1.8 0.8 - 1.2 [facility] Specimen Anatomical Collection Method Collection Time Receive d Time (Source) Location / / Volume Laterality 12/21/2011 4:42 AM 2 4:42 CDT AM CDT Baudilio Burns M.D. LAB BLOOD ADD-ON Performing Organization Address City/[facility]/ZIP Code Phon e Number [facility] - [address] [place], [place] [address] [facility] (ABNORMAL) PT (Prothrombin Time) with INR (12/20/2011 4:37 AM CDT) [facility] [employer] Method Time Signature Prothrombin 17.2 (H) 9.5 - [facility] Time, P 13.8 SEC [facility] INR 1.5 0.8 - 1.2 [facility] Specimen Anatomical Collection Method Collection Time Receive d Time (Source) Location / / Volume Laterality 12/20/2011 4:37 AM 2 4:37 CDT AM CDT Baudilio Burns M.D. LAB BLOOD ADD-ON Performing Organization Address City/State/ZIP Code Phon e Number [facility] - [address] [place], [place] [address] [facility] (ABNORMAL) Electrolyte (Chem 4) Panel (12/19/2011 5:13 AM CDT) [facility] Method Time Signature Sodium, S 139 135 - 145 [facility] MMOL/L LABORATORIES - [facility] Chloride, S 102 100 - 108 [facility] MMOL/L LABORATORIES - [facility] BUN (Blood Urea 11 6 - 21 [facility] Nitrogen), S MG/DL LABORATORIES - [facility] Anion Gap 18 (H) 7 - 15 [facility] LABORATORIES - [facility] HX Bicarbonate, 19 (L) 22 - 29 [facility] P/S MMOL/L LABORATORIES - [facility] Creatinine 0.7 0.6 - 1.1 [facility] MG/DL LABORATORIES - [facility] eGFR >60 >60 [facility] Non-Black/Afric ML/MIN/BS LABORATORIES - [place] A [facility] eGFR-Black/Afri >60 >60 [facility] can [place] ML/MIN/BS LABORATORIES - A [facility] Glucose, S 148 (H) 70 - 140 [facility] MG/DL LABORATORIES - [facility] Potassium, S 3.9 3.6 - 5.2 [facility] MMOL/L LABORATORIES - [facility] Specimen Anatomical Collection Method Collection Time Receive d Time (Source) Location / / Volume Laterality 12/19/2011 5:13 AM 2 5:13 CDT AM CDT Leodan Gonzalez M.D. LAB BLOOD ADD-ON Performing Organization Address City/State/ZIP Code Phon e Number [facility] - [address] [place] [address] [facility] PT (Prothrombin Time) with INR (12/19/2011 5:12 AM CDT) [facility] Method Time Signature Prothrombin 13.4 9.5 - 13.8 [facility] Time, P SEC LABORATORIES - [facility] INR 1.1 0.8 - 1.2 [facility] Specimen Anatomical Collection Method Collection Time Receive d Time (Source) Location / / Volume Laterality 12/19/2011 5:12 AM 2 5:12 CDT AM CDT Leodan Gonzalez M.D. LAB BLOOD ADD-ON Performing Organization Address City/State/ZIP Code Phon e Number [facility] - [address] [place] [phone] [facility] (ABNORMAL) CBC without Differential (12/19/2011 5:12 AM CDT) [facility] Method Time Signature Erythrocytes 3.88 (L) 3.90 - [facility] 5.03 LABORATORIES - X10(12)/L [facility] MCV 89.4 81.6 - [facility] 98.3 FL LABORATORIES - [facility] Hemoglobin 11.3 (L) 12.0 - [facility] 15.5 G/DL LABORATORIES - [facility] Hematocrit 34.7 (L) 34.9 - [facility] 44.5 % LABORATORIES - [facility] RBC Distrib 14.7 11.9 - [facility] Width 15.5 % LABORATORIES - [facility] Platelet Count 247 150 - 450 [facility] X10(9)/L LABORATORIES - [facility] Leukocytes 9.9 3.5 - [facility] 10.5 LABORATORIES - X10(9)/L [facility] Specimen Anatomical Collection Method Collection Time Receive d Time (Source) Location / / Volume Laterality 12/19/2011 5:12 AM 2 5:12 CDT AM CDT Leodan Gonzalez M.D. LAB BLOOD ADD-ON Performing Organization Address City/State/ZIP Code Phon e Number [facility] - [address] [place] [phone] [facility] DX Knee 2 Views (12/18/2011 12:34 PM CDT) Anatomical Region Laterality Modality Lower Extremity, Knee N/A Radiographic Imagi ng Specimen (Source) Anatomical Collection Method Collection Time Re ceived Time Location / / Volume Laterality 12/18/2011 12:34 PM CDT Narrative 12/18/2011 12:39 PM CDT 18-Dec-2011 12:34:00 ??Exam: R Knee 2vw AP/Lat Indications: Degenerative arthritis righ t knee. Right TKA. ORIGINAL REPORT - 18-Dec-2011 12:39:00 Right Knee 2vw AP/Lat: Right TKA is well seated. Negative for P O purposes. Electronically signed by: ?? Burton Wood MD ??[id number] 18-Dec-2011 12:39 Procedure Note Karthikeyan Wood M.D. - 06/14/2017Formatt ing of this note might be different from the original. 18-Dec-2011 12:34:00 Exam: R Knee 2vw AP /Lat Indications: Degenerative arthritis righ t knee. Right TKA. ORIGINAL REPORT - 18-Dec-2011 12:39:00 Right Knee 2vw AP/Lat: Right TKA is well seated. Negative for P O purposes. Electronically signed by: Burton Wood MD [id number] 18-Dec-2011 12:39 Baudilio Burns M.D. IMG DIAGNOSTIC IMAGING PROCE [facility] Hemoglobin (HGB), POCT (12/18/2011 12:21 PM CDT) P athologist Signature Hemoglobin, B 13.1 12.0 - [facility] 15.5 G/DL LABORATORIES - [facility] Specimen Anatomical Collection Method Collection Time Receive d Time (Source) Location / / Volume Laterality 12/18/2011 12:21 12/18/2011 PM CDT 12:21 PM CDT Tho Polanco M.D. LAB POCT ORDERABLES - DEVICE Performing Organization Address City/[facility] Phon e Number [facility] - [address] PT (Prothrombin Time) with INR (12/18/2011 12:20 PM CDT) Patholo gist Method Time Signature Prothrombin 11.8 9.5 - 13.8 [facility] Time, P SEC LABORATORIES - [facility] INR 1.0 0.8 - 1.2 [facility] - [facility] Specimen Anatomical Collection Method Collection Time Receive d Time (Source) Location / / Volume Laterality 12/18/2011 12:20 12/18/2011 PM CDT 12:20 PM CDT Baudilio Burns M.D. LAB BLOOD ADD-ON Performing Organization Address City/State/ZIP Code Phon e Number [facility] - [address] documented in this encounter Visit Diagnoses Not on filedocumented in this encounter
--- OUTSIDE RECORDS SUMMARY | 2022-01-12 12:43 | XMS_ITS | Encounter Summary ---
:1955 Author Organization [facility] Address [address] [place] [address] Care Team Providers Name Role Phone Unavailable Primary Care Provider Unavailable Encounter Details Date Type Department Care Team Description 12/05/2011 Hospital Encounter HX NO MAPPING Social History [...] do you attend confucianism or Never 2021 anabaptism services? Do you [...]
--- OUTSIDE RECORDS SUMMARY | 2022-01-12 12:43 | XMS_ITS | Encounter Summary ---
:1955 Author Organization [facility] Address [address] [place] [address] Care Team Providers Name Role Phone Unavailable Primary Care Provider Unavailable Encounter Details Date Type Department Care Team Description 04/25/2011 Hospital Encounter [facility]X [facility] Guido Man M.D. [address] [place] [address], [address] [place] [address] (Wo rk) Social History Tobacco [...] do you attend religious or Never 2021 holiness services? Do you [...] Sign Reading Time Taken Comments Blood Pressure 126/80 04/25/2011 1:38 PM CLINICAL RESEARCH ASSOCIATE Pulse - - Temperature - - Respiratory Rate - - Oxygen Saturation - - Inhaled Oxygen Concentration - - Weight 107 kg (235 lb 10.8 oz) 04/25/2011 1:38 PM CLINICAL RESEARCH ASSOCIATE Height - - Body Mass Index - [...] encounter Progress Notes Yobani Man M.D. - 04/25/2011 12:00 AM CST [id number] CHIEF COMPLAINT / REASON FOR VISIT Low back pain and intermittent bilateral lower extremity pain HISTORY OF PRESENT ILLNESS Ms. Santamaria is a pleasant 55-year-old female who I have seen in the past for a variety of musculoskeletal issues. She presents with a chief complaint of low back pain and intermittent bilateral lower extremity pain. Ms. Santamaria has had longstanding low back pain. She has been involved in different sessions of physical therapy as well as had multiple spine injections and also had a left hemilaminectomy at L3-L4. She reports that she has had her current exacerbation of low back pain since around February 2011. She describes pain that is primarily located across her low back and can radiate into the bilateral gluteal regions. She also will notice some occasional discomfort in the bilateral posterior thighs and calves although this is not frequent. This pain is worse any prolonged position that she is in especially sitting and she notes this when she has been in a car for any prolonged period of time. She denies any focal weakness in lower extremities. She denies any changes in her bowel or bladder habits, fever or chills, or recent intentional weight loss. She has been using ibuprofen 800 milligrams typically 1 to 3 tablets per day as needed for her discomfort. She is involved in physical therapy at [facility] in [place] primarily working on stretching of her piriformis muscles as well as ultrasound to the gluteal region which she did find to be helpful but short lasting. She has had an MRI of lumbar spine performed which she brought with her today. This was performed on April 09. Significant findings include multilevel degenerative disc and facet arthropathy including moderate facet arthropathy at L4-L5, L5-S1 bilaterally. There is evidence of her previous left L3-L4 hemilaminectomy with enhancing epidural perineal granulation tissue which is stable with no evidence of recurrent disc herniation or impingement. There is left paracentral disc protrusion at L2 of L3 impinging left L3 nerve root which is similar to previous studies that she had January 2006. PHYSICAL EXAM GENERAL: Pleasant 55-year-old female in no acute distress. NEURO: Oriented to person, place and time. Appropriate mood and affect. GAIT: Gait reveals normal keri and stride. Toe and heel walking are normal. EXTREMITIES: Strength: All major muscle groups of the bilateral lower extremities have normal and symmetric muscle strength, bulk and tone. . Reflexes: Patellar tendon 0/-1 (left total knee arthroplasty) Achilles 0/0. Plantar responses downgoing bilaterally. Straight leg raise is negative for radicular pain or paresthesias bilaterally. Straight leg raise causes pain in the low back bilaterally. MUSCULOSKELETAL SPINE: Preserved lumbar flexion without pain. -1 lumbar extension and this does cause pain across her low back. Palpation: There is tenderness to palpation over the bilateral lower lumbar paraspinals as well as diffusely in the gluteal regions bilaterally. JOINT RANGE OF MOTION: Relative preserved hip range of motion without pain. Stinchfield's causes pain in the low back without any groin pain bilaterally. IMPRESSION/REPORT/PLAN 1. Low back pain 2. Lumbar spondylosis 3. History of left L3-L4 hemilaminectomy 4. Fibromyalgia I had a long discussion today with Ms. Santamaria She has a normal neurologic examination other than a mildly decreased left patellar tendon reflex which I feel is likely secondary to her left total knee arthroplasty. Her symptoms are primarily confined to her low back and bilateral gluteal regions. I do feel that her pain is likely multifactorial with her fibromyalgia, and degenerative changes in the lumbar spine. I do feel that some of her pain is from a facetogenic etiology with her pain that is worse with extension and her pain across the low back and the findings on her MRI. PLAN 1. I discussed having Ms. Santamaria involved in physical therapy again, but with a slightly different approach and this time primarily working on a core strength and stability program. She would be interested in this and I will give her a referral for this but we are going to wait to initiate that until after what is discussed below. 2. We discussed possibility of proceeding with bilateral L4-L5 and L5-S1 facet joint corticosteroid injections and Ms. Santamaria would like to proceed with this. We will arrange for this to occur at the first available time. I will then have her initiate physical therapy approximately 1 week following the injection and I hope that her pain will be decreased and allow her to be more participatory in physical therapy. 3. Ms. Santamaria will continue to use the ibuprofen 800 milligrams as needed for pain. She knows to take this with food. 4. I will plan on seeing Ms. Santamaria back following the bilateral L4-L5 and L5-S1 facet joint corticosteroid injections and physical therapy. She knows to be in contact with me prior to that time if she notes any worsening or worsening symptoms which we went over in detail today. Total time 35 minutes and counseling time 20 minutes. NABILA/madelaine Signed Yobani Man M.D. Physical Medicine & Rehabilitation CC: Dr. Harris [facility] Electronically Signed By: YOBANI MAN MD On: 05/06/2011 10:28 AM Modified by and Electronically Signed by: YOBANI MAN MD On: 05/06/2011 10:27 AM Source: [facility] MHSDOLBEYNONRADSYS Document Id: [id number] ICAL RESEARCH ASSOCIATE documented in this encounter Nursing Notes Imelda Culp R.T.(Manish) - 05/23/2011 11:54 AM CST Note sent Progress note from 04/25/[address] Harris in [place]. Electronically Signed By: IMELDA CULP On: 05/23/2011 11:55 AM Source: [facility] POWERCHART Document Id: [id number] ICAL RESEARCH ASSOCIATE documented in this encounter Miscellaneous Notes Miscellaneous - Francoise Avila P.A.-C. - 05/09/2011 8:47 AM CST Reminder Msg Document Contains Addenda Addendum by YOBANI MAN MD on 22 May 2011 17:12:13 CLINICAL RESEARCH ASSOCIATE From: YOBANI MAN MD To: FRANCOISE AVILA; Sent: 05/22/2011 17:12:13 CLINICAL RESEARCH ASSOCIATE Show up: 05/22/2011 17:11:00 CLINICAL RESEARCH ASSOCIATE Subject: RE: Reminder Msg She is doing much better. I am going to have her initiate PT. Thanks. From: FRANCOISE AVILA To: YOBANI MAN MD; Sent: 05/09/2011 08:47:55 CLINICAL RESEARCH ASSOCIATE Show up: 05/19/2011 08:47:00 CLINICAL RESEARCH ASSOCIATE Subject: Reminder Please Remember to: see how she is feeling after B facet joint injections PATIENT: ( ) Call Patient ( ) Ask Patient to ( ) ( ) Call Relative ( ) Schedule Patient ( ) ( ) Call for Garage Hand ( ) Follow up on Results ( ) Other: PROVIDER: ( ) Call Physician ( ) Call Pharmacist ( ) Call Lab ( ) Other: Special Instructions: Comments: Source: [facility] CYBRA Document Id: [id number] Electronically signed by Pri[facility] Executive Assistant To President [id number] at 08/17/2016 2:20 PM CDT Miscellaneous - Francoise Avila P.A.-C. - 04/25/2011 1:38 PM CST Adult Wet Crown Blocking Operator Intake/History Adult Wet Crown Blocking Operator Intake/History Entered On: 04/25/2011 13:39 CLINICAL RESEARCH ASSOCIATE Performed On: 04/25/2011 13:38 CLINICAL RESEARCH ASSOCIATE by FRANCOISE AVILA Intake Systolic Blood Pressure : 126mmHg Diastolic Blood Pressure : 80mmHg NIBP Mean : 95mmHg BP Location : Right upper extremity Blood Pressure Cuff Size : Large Actual Weight : 106.9kg(Converted to: 235lb 11oz) Weight Source : Standing scale Dosing Weight Clinic : 106.90kg FRANCOISE AVILA - 04/25/2011 13:38 CLINICAL RESEARCH ASSOCIATE Subjective Pain Symptoms : No FRANCOISE AVILA - 04/25/2011 13:38 CLINICAL RESEARCH ASSOCIATE Dependent Habits Tobacco Use/Currently Using : No Exposure to Tobacco Smoke : Other: never Smoking Status : Never smoker FRANCOISE AVILA - 04/25/2011 13:38 CLINICAL RESEARCH ASSOCIATE Allergy Allergies (Active) penicillins Estimated Onset Date: Unspecified ; Created By: FRANCOISE AVILA; Reaction Status:Active ; Category: Drug ; Substance: penicillins ; Type: Allergy ; Updated By: FRANCOISE AVILA; Reviewed Date: 10/09/2009 14:26 CDT [facility] Document Id: [id number] CLINICAL RESEARCH ASSOCIATE!16 ICAL RESEARCH ASSOCIATE documented in this encounter Plan of Treatment Not on filedocumented as of this encounter Visit Diagnoses Not on filedocumented in this encounter
--- OUTSIDE RECORDS SUMMARY | 2022-01-12 12:43 | XMS_ITS | Encounter Summary ---
:1955 Author Organization [facility] Address [address] [place] [address] Care Team Providers Name Role Phone Unavailable Primary Care Provider Unavailable Encounter Details Date Type Department Care Team Description 04/09/2011 Hospital Encounter HX [facility] Rob Lemons M.D. [address] [place] [address], [address] [place] [address] (Wo rk) Social History Tobacco [...] do you attend restoration or Never 2021 baptist services? Do you [...]
--- OUTSIDE RECORDS SUMMARY | 2022-01-12 12:43 | XMS_ITS | Encounter Summary ---
:1955 Author Organization [facility] Address [address] [place] [address] Care Team Providers Name Role Phone Unavailable Primary Care Provider Unavailable Encounter Details Date Type Department Care Team Description 11/28/2011 Hospital Encounter HX NO MAPPING Social History [...] do you attend sikh or Never 2021 scientologist services? Do you [...]
--- OUTSIDE RECORDS SUMMARY | 2022-01-12 12:43 | XMS_ITS | Encounter Summary ---
:1955 Author Organization [facility] Address [address] [place] [address] Care Team Providers Name Role Phone Unavailable Primary Care Provider Unavailable Encounter Details Date Type Department Care Team Description 10/28/2011 Hospital Encounter [facility]X [facility] Guido Man M.D. [address] [place] [address], [address] [place] [address] (Wo rk) Social History Tobacco [...] do you attend yarsani or Never 2021 congregation services? Do you [...] encounter Progress Notes Yobani Man M.D. - 10/28/2011 11:18 AM CDT [id number] CHIEF COMPLAINT / REASON FOR VISIT Right knee pain, low back pain, and bilateral foot pain. HISTORY OF PRESENT ILLNESS Ms. Santamaria returns today. She reports that her right knee has continued to cause her discomfort primarily located in the medial aspect of the right knee. She has been having an effusion in the right knee as well. She denies any warmth or erythema about the knee. This pain is worse when she is standing or walking but has gotten to the point where it can also bother her at night. The injection on July 29 did help her for approximately two months but the right knee intra-articular corticosteroidinjection did help her for approximately two months but the pain has returned. She is scheduled to go on a trip to see her mother in [facility] who is not doing well from a health standpoint and is leaving on Friday, October 31. Her low back pain also continues to be an issue for her. She describes pain that is located across her low back. The pain is an achy discomfort at all times but is worse when she is standing and walking. She denies any pain radiating through her lower extremities or paresthesias in her lower extremities other than what was described below in her foot. She denies any recent unintentional weight loss or changes in her bowel or bladder habits. The bilateral L4-L5 and L5-S1 facette joint corticosteroid injections performed on September 10 were not as helpful as the original injections that were performed. She also describes bilateral foot pain. She describes it as being much worse on the right. This is located between the second and third metatarsal heads. This is worse when she is standing or walking and she can feel a zinging shooting sensation into the toes at times. PHYSICAL EXAMINATION GENERAL: Pleasant 56-year-old female in no acute distress. GAIT: Antalgic favoring the right lower extremity. SPINE: -1 globally decreased lumbar spine range of motion. There is tenderness to palpation over thebilateral lower lumbar paraspinals. EXTREMITIES: Strength: All major muscle groups of the bilateral lower extremities have normal and symmetric muscle strength, bulk and tone. Knee: There is a 2+ effusion present in the right knee without any warmth or erythema. Range of motion is from a few degrees short of full extension and 115 degrees of flexion. There is tenderness over the medial and lateral joint line as well as over the medial and lateral patellar facettes. There is also tenderness to palpation in the bilateral lower lumbar paraspinals. Foot: There is tenderness to palpation between the second and third metatarsal heads on the right reproducing her discomfort as well as a shooting sensation into the toes. There is similar tenderness on the left but to a much lesser extent. IMPRESSION/REPORT/PLAN 1. Right knee pain. 2. Right knee DJD. 3. History of left total knee arthroplasty. 4. Low back pain. 5. Lumbar spondylosis. 6. 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 7. Bilateral plantar fasciitis. PLAN 1. Ms. Santamaria's right knee pain is most consistent with osteoarthritis. She had a recent MRIthat was ordered by Dr. Metcalf and that was performed on July 08 which shows marked degenerativechanges in the right knee. She has done very well following a left total knee arthroplasty and I discussed with her having her meet with an orthopedic surgeon for consideration of a right total knee arthroplasty with her continued pain. She would be interested in this and I will refer her to orthopedic surgery at [facility]. She has had previous physical therapy as well as right knee intra-articular corticosteroid injections and right knee Synvisc-One injections. The right knee corticosteroid injections have helped her, but only for a few months at a time. She is scheduled to leave for [place] on Friday as her mother is ill. She is inquiring about the possibility of a repeat right knee intra-articular corticosteroid injection before that trip and I think that that would be reasonable and we will perform that today. We will then arrange for her to meet with a surgeon when she returns from [place]. Please see separate note dictated for details of this procedure. 2. With respect to her low back pain, her symptoms are likely multifactorial. She does have degenerative changes in the lumbar spine. I do feel she likely has a significant component of facet arthropathy contributing to her discomfort. She received good benefit initially from the bilateral L4-L5 and L5-S1 facet joint corticosteroid injections but the repeat injections were not as helpful for. Becauseof this, we did discuss the possibility of potentially proceeding with medial branch blocks to the innervations of the bilateral L4-L5 and L5-S1 facet joints with consideration of radiofrequency denervation if that were to be helpful for her. She would like to proceed with this and so I will refer herto [facility] as well to be seen in the pain clinic to see if she would be a candidate for that procedure. 3. I gave her a prescription today for bilateral metatarsal relief pads. She does have custom orthotics that she uses for the plantar fasciitis and this would be primarily to offload what is likely a Giron's neuroma. 4. I will plan on being in contact with Ms. Santamaria after her appointments at [facility] and she knows to be in contact with me prior to that time if she notes any worsening or worrisome symptoms which we went over in detail today. She voiced agreement and understanding with plan. Total time 30 minutes. Counseling time 20 minutes. Yobani Man M.D./vipin Electronically Signed By: YOBANI MAN MD On: 11/05/2011 11:28 AM Modified by and Electronically Signed by: YOBANI MAN MD On: 11/05/2011 11:28 AM Source: [facility] MHSDOLBEYNONRADSYS Document Id: [id number] documented in this encounter Procedure Notes Yobani Man M.D. - 10/28/2011 12:00 AM CDT 1RPT DIAGNOSIS 1. Right knee pain. 2. Right knee DJD. HISTORY/INDICATION Please see my clinical note dated 10/28/2011 for more details of the HPI. PROCEDURE [...] of the tip in the target area, 28 cc of typical appearing synovial fluid was aspirated. There was no further effusion seen to be remaining in the knee. At this point, the syringe containing the synovial fluid was disconnected from the needle while the needle tip remained in the lateral suprapatellar recess. At this point, a syringe containing 4 cc's of 1% Lidocaine and 1 cc [...] plan on being in contact with her after her appointments at [facility]. She voiced agreement and understanding with this plan. Yobani Man M.D./vipin Electronically Signed By: YOBANI MAN MD On: 11/05/2011 11:08 AM Source: [facility] MHSDOLBEYNONRADSYS Document Id: [id number] documented in this encounter Miscellaneous Notes Miscellaneous - Yobani Man M.D. - 10/28/2011 12:08 PM CDT [place] [address] Visit Information Name: FATNA SANTAMARIA Current Date: 10/28/2011 12:08:35 Physicians Attending Provider: YOBANI MAN MD Primary [...] No Appointments found Your Goals/Additional instructions: Source: [facility] POWERCHART Document Id: [id number] Miscellaneous - Yobani Man M.D. - 10/28/2011 12:08 PM CDT [place] [address] Visit Information Name: FANTA SANTAMARIA Visit Date: 10/28/2011 12:08:34 Attending Provider: YOBANI MAN MD Primary Care [...] your provider for clarification. Additional Information: Source: [facility] POWERCHART Document Id: [id number] Miscellaneous - Yobani Man M.D. - 10/28/2011 12:00 AM CDT [id number] TO WHOM IT MAY CONCERN October 28, 2011 DEPARTMENT OF ORTHOPEDIC SURGERY [address] [address] RE: Fanta Santamaria : 1955 To Whom It May Concern: Thank you very much for seeing Ms. Santamaria. She is a pleasant 56 year-old female with a past medical history significant for fibromyalgia and a left total knee arthroplasty. She has had right knee pain for several years that has been worsening over the past year. This pain is located in both the medial and lateral aspects of the knee. You will have x-rays of her knee to review as well as a MRIof her right knee that was obtained on July 09, 2011. Significant findings included degenerative changes throughout the right knee. Ms. Santamaria has been involved in physical therapy as well as had a right knee intraarticular corticosteroid injection and a Synvisc One injection. These interventions have helped her to some extent, but she has continued to be bothered by pain that is functionally limiting for her. With her persistent symptoms and imaging findings, I am referring her to you for your opinion as to whether she would be an operative candidate. Thank you very much for seeing Ms. Santamaria. Sincerely, Yobani Man M.D. Department of Physical Med & Rehab k Electronically Signed By: YOBANI MAN MD On: 10/28/2011 05:30 PM Modified by and Electronically Signed by: YOBANI MAN MD On: 10/28/2011 05:30 PM Source: [facility] MHSDOLBEYNONRADSYS Document Id: [id number] Miscellaneous - Yobani Man M.D. - 10/28/2011 12:00 AM CDT [id number] KATALINA HATHAWAY M.D. October 28, 2011 [facility] [address] [place] [id number] RE: Fanta Santamaria : 1955 Dr. Hathaway: Thank you very much for reviewing Ms. Santamaria's situation. She is a pleasant 56 year-old female who has a past medical history significant for a left L3-L4 hemilaminectomy and discectomy in 2006, fibromyalgia and a left total knee arthroplasty who has had low back pain that has worsened over the past couple of years. She currently is having pain that is located across her low back without any radiating pain. Her neurologic examination has been stable since the time that I have been following her. She has had physical therapy as well as has been tried on a variety of different medications which have been somewhat helpful for her, but her pain has persisted. She has had bilateral L4- L5 and L5-S1 facet joint corticosteroid injections performed twice. The first injections were helpful for her,but the injections most recently performed on September 10 only provided her relief her for a short amount of time. She had a MRI of her lumbar spine performed on April 09, 2011 which you will have for your review. Significant findings included facet arthropathy at L4-L5 and L5-S1 bilaterally. With Ms. Santamaria's symptoms, examination findings and imaging findings, I am referring her to you for consideration of medial dea blocks to the innervation of the bilateral L4-L5 and L5-S1 facet joints and progression to radiofrequency denervation if indicated per your protocol. Thank you very much for reviewing Ms. Santamaria's situation. Sincerely, Yobani Man M.D. Department of Physical Med & Rehab k Electronically Signed By: YOBANI MAN MD On: 10/28/2011 05:35 PM Modified by and Electronically Signed by: YOBANI MAN MD On: 10/28/2011 05:35 PM Source: [facility] MHSDOLBEYNONRADSYS Document Id: [id number] documented in this encounter Plan of Treatment Not on filedocumented as of this encounter Visit Diagnoses Not on filedocumented in this encounter
--- OUTSIDE RECORDS SUMMARY | 2022-01-12 12:43 | XMS_ITS | Encounter Summary ---
:1955 Author Organization [facility] Address [address] [place] [address] Care Team Providers Name Role Phone Unavailable Primary Care Provider Unavailable Encounter Details Date Type Department Care Team Description 05/08/2011 Hospital Encounter HX NO MAPPING Clay Man M.D. [address] [place] [address] , [address] [place] [address] (Wo rk) Social History Tobacco [...]
--- OUTSIDE RECORDS SUMMARY | 2022-01-12 12:43 | XMS_ITS | Encounter Summary ---
:1955 Author Organization [facility] Address [address] [place] [address] Care Team Providers Name Role Phone Unavailable Primary Care Provider Unavailable Encounter Details Date Type Department Care Team Description 04/09/2011 Hospital Encounter HX [facility] Rob Lemons M.D. [address] [place] [address], [address] [place] [address] (Wo rk) Social History Tobacco [...] do you attend pentecostal or Never 2021 congregational services? Do you [...]
--- OUTSIDE RECORDS SUMMARY | 2022-01-12 12:43 | XMS_ITS | Encounter Summary ---
:1955 Author Organization [facility] Address [address] [place] [address] Care Team Providers Name Role Phone Unavailable Primary Care Provider Unavailable Encounter Details Date Type Department Care Team Description 12/04/2011 Hospital Encounter HX NO MAPPING Social History [...] do you attend protestant or Never 2021 caodaism services? Do you [...]
--- OUTSIDE RECORDS SUMMARY | 2022-01-12 12:43 | XMS_ITS | Encounter Summary ---
:1955 Author Organization [facility] Address [address] [place] [address] Care Team Providers Name Role Phone Unavailable Primary Care Provider Unavailable Encounter Details Date Type Department Care Team Description 03/05/2012 Hospital Encounter HX [facility] Guido Man M.D. [address] [place] [address], [address] [place] [address] (Wo rk) Social History Tobacco [...] do you attend jainism or Never 2021 adventism services? 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 - 03/05/2012 1:45 PM CST [id number] CHIEF COMPLAINT / REASON FOR VISIT Bilateral foot pain and low back pain. HISTORY OF PRESENT ILLNESS Ms. Caro returns today in followup. Since I last saw her, she did meet with physical therapy at [facility] in [place] and did have custom orthotics made. I did review these and they do have metatarsal relief pad in them. She reports that they have not helped her to a great extent. She describes pain located in the right greater than left distal foot. This is primarily located between the second and third metatarsal heads but can also can extend between the third and fourth metatarsal heads. She describes this as a feeling of pressure when she put any weight to the foot and then she can experience a shooting, tingling pain through the toes. She also describes an achy discomfort located in the region of the anteromedial calcaneus and she feels this is more consistent with her plantar fasciitis type pain that she has been dealing with intermittently for a few years. She has similar symptomson the left with respect to the pain in region of his second and third metatarsal heads but does nothave any heel pain on the left. She has not she has not noted any swelling, warmth, erythema in the foot. The pain is worse when she is standing or walking. She had a right total knee arthroplasty performed at [place] by Dr. Gonzalez and is doing excellent with respect to that. She is very happy that she went through with the procedure as she feels it has made a significant difference in her quality of life. She also had radiofrequency denervation performed of the bilateral L2-L3 and L3-L4 facet joints. She reports that also been very helpful for her. However, she does note that she has started to notice some discomfort lower than where her original pain was and she points to the region of the upper gluteal region. She reports this start after sleeping aj bed at a hotel. This pain is an achy discomfort located on the right greater than left side. She de nies any pain radiating to her lower extremities. She denies any focal weakness in her lower extremities. PHYSICAL EXAMINATION GENERAL: Pleasant 56-year-old female in no acute distress. GAIT: Slightly antalgic favoring the right lower extremity SPINE: Relative preserved lumbar spine range of motion today. There is tenderness to palpation over the bilateral sacroiliac joint region and over the right greater trochanter bursa region. EXTREMITIES: Strength: All major muscle groups of the bilateral lower extremities have normal and symmetric muscle strength, bulk and tone. Foot: There is tenderness to palpation between the second andthird metatarsal heads bilaterally that reproduces her discomfort and on the right this also causes s hooting sensation into the toes. There is tenderness to palpation over the anteromedial calcaneus onthe right extending distally on the medial aspect of plantar fascia. IMPRESSION/REPORT/PLAN 1. Right greater than left foot pain 2. 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 Bilateral plantar fasciitis. 4. Lumbar spondylosis 5. Recent history of right total knee arthroplasty. PLAN 1. Ms. Caro's right foot pain does seem consistent with a Giron's neuroma but it is in somewhat of a diffuse location as well and based on this, we are going to proceed with a MRI of the right foot. Other things to consider with the distribution of her pain would be intermetarsal bursitis. She has had persistent symptoms despite orthotics with metatarsal relief pads. 2. Ms. Caro has now seen her chiropractor for a few sessions with respect to her low back pain. This is inferior to where her pain was located at previous to the bilateral L2-L3 and L3-L4 radiofrequency denervations that were performed. She is tender today in the region of the sacroiliac joints bilaterally. Her neurologic examination is unchanged. If she does not note improvement with continuing working with the chiropractor, I think it would be reasonable to have her involved in physical therapy in [place] and we discussed this today and she is also in agreement with this. 3. I will plan on seeing Ms. Caro back following the MRI of her right foot and she knowsto be in contact with me prior to that time if she notes any worsening or worrisome symptoms which we went over in detail today. She voiced agreement and understanding with this plan. Total time 25 minutes and counseling time 15 minutes Yobani Man M.D./madelaine Electronically Signed By: YOBANI MAN MD On: 03/16/2012 01:04 PM Modified by and Electronically Signed by: YOBANI MAN MD On: 03/16/2012 01:04 PM Source: [facility] MHSDOLBEYNONRADSYS Document Id: [id number] [employer] documented in this encounter Miscellaneous Notes Miscellaneous - Yobani aMn M.D. - 03/05/2012 2:47 PM CST [place] [address] Visit Information Name: FANTA CARO [facility] Number: [id number] Current Date: 03/05/2012 14:47:26 Physicians Attending Provider: YOBANI MAN MD Primary [...] No Appointments found Your Goals/Additional instructions: Source: [facility] POWERCHART Document Id: [id number] [employer] Miscellaneous - Yobani Man M.D. - 03/05/2012 2:47 PM CST [place] [address] Visit Information Name: FANTA CARO [facility] Number: [id number] Visit Date: 03/05/2012 14:47:25 Attending Provider: YOBANI MAN MD Primary Care Provider: ELVIA BOND MD NICOLASLucianoFANTA MATTSON has been given the following list of [...] your provider for clarification. Additional Information: Source: [facility] POWERCHART Document Id: [id number] [employer] Miscellaneous - Francoise Avila P.A.-C. 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 [employer]ESS[employer] by FRANCOISE AVILA Intake Systolic Blood Pressure : 128mmHg Diastolic Blood Pressure : 76mmHg NIBP Mean : 93mmHg BP Location : Left upper extremity Blood Pressure Cuff Size : Large Actual Weight : 116.3kg(Converted to: 256lb 6oz) Weight Source : Standing scale Dosing Weight Clinic : 116.30kg FRANCOISE AVILA - 03/05/2012 14:11 [employer]PER[employer] Subjective Pain Symptoms : No FRANCOISE AVILA - 03/05/2012 14:11 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 [employer] Dependent Habits Tobacco Use/Currently Using : No Exposure to Tobacco Smoke : Other: never Smoking Status : Never smoker FRANCOISE AVILA - 03/05/2012 14:11 [employer]PER[employer]OR [employer] Allergy Allergies (Active) penicillins Estimated Onset Date: Unspecified ; Created By: FRANCOISE AVILA; Reaction Status:Active ; Category: Drug ; Substance: penicillins ; Type: Allergy ; Updated By: FRANCOISE AVILA; Reviewed Date: 07/30/2011 10:55 CDT Source: [facility] POWERCHART Document Id: [id number] [employer] documented in this encounter Plan of Treatment Not on filedocumented as of this encounter Visit Diagnoses Not on filedocumented in this encounter
--- OUTSIDE RECORDS SUMMARY | 2022-01-12 12:43 | XMS_ITS | Encounter Summary ---
:1955 Author Organization [facility] Address [address] [place] [address] Care Team Providers Name Role Phone Unavailable Primary Care Provider Unavailable Encounter Details Date Type Department Care Team Description 07/06/2008 Hospital Encounter HX NO MAPPING Clay Man M.D. [address] [place] [address] , [address] [place] [address] (Wo rk) Social History Tobacco [...] do you attend confucianism or Never 2021 religion services? Do you [...] Sig Dispensed Refills Start Date End Date acyclovir (for_ZOVIRAX) Take by mouth as 0 200812/24/2021 200 mg capsule needed. documented as of this encounter Plan of Treatment Not on filedocumented as of this encounter Procedures Procedure Name Priority Date/Time Associated Diagnosis Comme nts DX KNEE RIGHT 3 Routine 07/06/2008 4:30 PM Result s for this VIEWS CDT procedure are i n the results section. DX KNEE LEFT 3 Routine 07/06/2008 4:30 PM Results for this VIEWS CDT procedure are i n the results section. documented in this encounter Results DX Knee Right 3 Views (07/06/2008 4:30 PM CDT) Anatomical Region Laterality Modality Lower Extremity, Knee Right Radiographic Imagi ng Specimen (Source) Anatomical Collection Method Collection Time Re ceived Time Location / / Volume Laterality 07/06/2008 4:30 PM CDT Impressions 07/06/2008 4:30 PM CDT Mild degenerative changes, possibly associated with pseudogout (CPPD arthropathy) as describ ed above. Narrative 07/06/2008 4:30 PM CDT Originally Signed By UNKNOWN, PERSONNEL Reason for exam: KNEE PAIN HISTORY: Right knee pain. ?? FINDINGS: Findings are less severe on th e right than on the left. No significant loss of joint space is obser fahad. However, mild chondrocalcinosis is suspected in the me dial meniscus which can be associated with CPPD arthropathy (pseudo gout). Osteophytes involve the patellofemoral joint only. A tiny degene rative suprapatellar joint effusion is not excluded, correlate clin ically with physical exam findings. No acute fracture or dislocati on. No incidental lesions. ? Procedure Note ProviderKellie M.D. - 08/20/2016F ormatting of this note might be different from the original. Originally Signed By UNKNOWN, PERSONNEL Reason for exam: KNEE PAIN HISTORY: Right knee pain. FINDINGS: Findings are less severe on th e right than on the left. No significant loss of joint space is obser fahad. However, mild chondrocalcinosis is suspected in the me dial meniscus which can be associated with CPPD arthropathy (pseudo gout). Osteophytes involve the patellofemoral joint only. A tiny degene rative suprapatellar joint effusion is not excluded, correlate clin ically with physical exam findings. No acute fracture or dislocati on. No incidental lesions. IMPRESSION: Mild degenerative changes, p ossibly associated with pseudogout (CPPD arthropathy) as describ ed above. Historical Provider IMG DIAGNOSTIC IMAGING PROCE DURES DX Knee Left 3 Views (07/06/2008 4:30 PM CDT) Anatomical Region Laterality Modality Lower Extremity, Knee Left Radiographic Imagi ng Specimen (Source) Anatomical Collection Method Collection Time Re ceived Time Location / / Volume Laterality 07/06/2008 4:30 PM CDT Impressions 07/06/2008 4:30 PM CDT Osteoarthritic degenerative changes are advanced for the relatively young age 53. Narrative 07/06/2008 4:30 PM CDT Originally Signed By UNKNOWN, PERSONNEL Reason for exam: KNEE PAIN HISTORY: Left knee pain. ?? FINDINGS: Joint space narrowing involves the medial compartment and patellofemoral joint with osteophytes in these regions as well. A tiny degenerative suprapatellar joint effusio n is suspected but not confirmed, correlate clinically with phy sical exam findings. No acute fracture or dislocation. No significant incidental lesions. ? Procedure Note ProviderKellie M.D. - 08/20/2016F ormatting of this note might be different from the original. Originally Signed By UNKNOWN, PERSONNEL Reason for exam: KNEE PAIN HISTORY: Left knee pain. FINDINGS: Joint space narrowing involves the medial compartment and patellofemoral joint with osteophytes in these regions as well. A tiny degenerative suprapatellar joint effusio n is suspected but not confirmed, correlate clinically with phy sical exam findings. No acute fracture or dislocation. No significant incidental lesions. IMPRESSION: Osteoarthritic degenerative changes are advanced for the relatively young age 53. Historical Provider IMG DIAGNOSTIC IMAGING PROCE DURES documented in this encounter Visit Diagnoses Not on filedocumented in this encounter
--- OUTSIDE RECORDS SUMMARY | 2022-01-12 12:44 | XMS_ITS | Encounter Summary ---
:1955 [facility] Address [address] [place] [address] Care Team Providers Name Role Phone Thalia Barron PA-C Primary Care Provider Unavailable Reason for Visit Reason Comments NECK PAIN BACK PAIN, LOW Consult/Transfer Care (Routine) - Closed Specialty Diagnoses / Procedures Referred By Contact Refer red To Contact Physical Therapy Diagnoses Other cervical disc degeneration, unspecified cervical region ([facility]) Spinal stenosis, cervical region CERV PAIN STENOSIS OF SPINE LOW BACK PAIN Thalia Barron, PnGood [facility] [place] [address] [address] [facility], [address] [place] [address] [place] [address] Phone: Fax: Referral ID Status Reason Start Date Expiration Date Visits Requ ested Visits Authorized [id number] Closed 10/06/2018 01/05/[phone] Encounter Details Date Type Department Care Team Description 01/28/2019 Therapy Physicians Neck and Marimar Pan PTA Mechanical low back pain (Primary Dx); Back Center [facility] [address] [address], Cervical spine pain [address] [facility] [place] [address] [place] [address] [phone] Social History Tobacco Use Types Packs/Day Years Used Date Smoking Tobacco: Never Alcohol Use Standard Drinks/Week Comments No 0 (1 standard drink = 0.6 oz pure alcoho l) Recovering alcoholic Sex Assigned at Date Recorded Not on file documented as of this encounter Progress Notes Khadijah Pan PTA - 01/28/2019 11:15 AM CST 01/28/2019 Visit # 22 Protocol: Neck ( acute, disc, stenosis) Back (acute, disc, adv out as tolerated) Start: 11:20 am End: 12:00 pm (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 Cervical Cervical 01/28/2019 Set 1 Ext % Max 100% Set 1 Ext ROM 37-78 Set 1 Ext Wgt 198 Set 1 Ext Reps 15 Set 1 Ext Tul - Set 1 Ext Kevin RPE maxed Set 2 Ext % Max - Set 2 Ext ROM - Set 2 Ext Wgt - Set 2 Ext Reps - Set 2 Ext Tul - Set 2 Ext Kevin RPE - Left Rot % Max - Left Rot ROM - Left Rot Wgt - Left Rot Reps - Left Rot Kevin RPE - Right Rot % Max - Right Rot ROM - Right Rot Wgt - Right Rot Reps - Right Rot Kevin RPE - Objective Tests & Measures: 198 inch # on cervical extension Pt declined wt increase on torso rotation ROM changes: no changes in ROM to avoid flare Tests performed today (see [facility] score and outcomes): : Oswestry=42% today, 28% on 10th visit, 46% on initial Neck Disability Index= 26% today, 18% on 10th, 38Th on initial. Warm Up: Movement Specific Training: Not Completed Bike: Minutes 5 Intensity moderate ICE: Back and Neck Lumbar Lumbar & Torso 01/28/2019 Set 1 Ext % Max - Set 1 Ext ROM - Set 1 Ext Wgt - Set 1 Ext Reps - Set 1 Ext Tul - Set 1 Ext Kevin RPE - Set 2 Ext % Max - Set 2 Ext ROM - Set 2 Ext Wgt - Set 2 Ext Reps - Set 2 Ext Tul - Set 2 Kevin RPE - Left Rot % Max 60% Left Rot ROM 35 Left Rot Wgt 20 Left Rot Reps 20 Left Rot Philip RPE 3/10 Right Rot % Max 60% Right Rot ROM 35 Right Rot Wgt 20 Right Rot Reps 20 Right Rot Kevin RPE 3/10 Therapeutic Exercise (25 min): Patient performed isolated torso rotation exercise, isolated cervical extension exercise and auxillary exercises to improve muscle strength, to improve muscle endurance, to improve muscle flexibility, to improve range of motion, to increase strength for seated posture, to increase strength for standing posture, to provide postural and scapular stability, increase strength and endurance levels of supporting spinal muscle groups and to strengthen postural muscles to decrease stresses on the spine to increase tolerance for sitting, standing, walking, sleeping, lifting, driving, personal care tasks andhousehold tasks Pt required cues to lead up with chin or look up towards the ceiling to effectively engage cervical extensor muscles and avoid compensation with upper trapezius bilateral. Pt educated on proper form on torso rotation exercise with emphasis to keep spine in the middle of the machine to avoid substitutions and engage the oblique muscles fully. Pt able to do after cues and reminders of body position. Neuromuscular Re-Education (15 min): Patient performed home neck strengthening exercises and home jani chair exercises to decrease substitution patterns present with chronic pain, to retrain muscles for proper sequencing, improve muscle recruitment patterns, to improve self-correction of posture and to improve kinesio awareness to increase tolerance for sitting, standing, walking, sleeping, lifting, driving, personal care tasks and household tasks. Reviewed antigravity exercises with patient to ensure correct form and rep speed. Pt required cues using only the cervical extensor muscle and avoid the thoracic/upper trap muscles from compensating with the movement while seated in the chair. Pt able to do rotation exercise correctly after cues to ensure correct form. Educated the pt on frequency and duration of each exercise after pt discharges from the rehab and transitions to [facility] for strength maintenance of the cervical muscles. Patient reviewed seated lumbar extension exercise using a green/80# resistant band to challenge the lumbar extensor muscles. Patient did understand and performed correctly today. Auxillary Auxillary 01/28/2019 Abs Wgt Set 1 50 Abs Reps Set 1 20 Abs Wgt Set 2 - Abs Reps Set 2 - Glute Wgt Set 1 - Glute Reps Set 1 - Glute Wgt Set 2 - Glute Reps Set 2 - Rows Wgt Set 1 55 Rows Reps Set 1 20 Rows Wgt Set 2 - Rows Reps Set 2 - Lats Wgt Set 1 - Lats Reps Set 1 - Lats Wgt Set 2 - Lats Reps Set 2 - Other - HEP Seated lumbar extension was reviewed, troto with tubing/handles and handout with the aux execises. Therapeutic Activities (0 min): Not performed today. Patient Education: Patient was instructed in correlation of strength and function to increase their understanding of the benefits related to completing the [facility] program Seated cervical extension reviewed with 5# recommendation. Reviewed seated lumbar extension exercise with green tubing. Also reviewed torso rotation exercise for trunk rotary exercise using purple tubing/handles. Seated Lumbar and Thoracic Forward Rotation with Anchored Resistance - 20 reps - 2 sets - 5 hold - 1x daily - 3x weekly Head Harness Extension Exercise - 20 reps - 2 sets - slow reps hold - 2-3x weeklyLumbar Band Extension Exercise - 10 reps - 2 sets - 5 hold - 2x daily - 5x weekly Patient responded well the education on HOME EXERCISE PROGRAM today. Assessment: ROM remains appropriate on cervical extension and torso rotation. Graph # on exercises discussed today. Patient tolerated the treatment fine with good effort and an effective muscle fatiguelevel to improve muscle strength around the cervical and lumbar spine. Patient will then have more success with performing functional duties around the house, work related tasks and ADL.s without discomfort. Patient has been improving when she approx 1/2 through the program. She did have some medical issues that prevented her from attending rehab regularly. She was still improving wts but hit a threshold and pt was getting flared more than able to increase the wts. Patient was fully instructed in HOME EXERCISE PROGRAM with seated lumbar extension with tubing/troto for low back and seated neck extension with 5# wt. Patient also belongs to the senior center fitness and will take her aux exercise sheet and match the machines that [facility] uses. All STG's met, 3/ LTG met. Goals: Short Term Goals (4-6 weeks): ?? *1. Pt will sit/drive 10 min??with Sx <??or = to 3-10??(At Eval: 09/23)?MET 12/01/18 *2. Pt will stand??>3 min??with Sx <??or = to 3-4/10??(At Eval: 09/23) ??Met 01-18-19 3. Pt will??perform bed mobility (scooting, rolling, supine to sit etc.)??with moderate Sx 3-4/10?? MET 01/12/19 4. Pt will walk (with walker) ??>3 min with burning Sx <??or = to??3-4/10 in her feet ??Met 01-28-19 5. Pt will get dressed in the morning with??Sx <??or = to??3-4??MET 01/12/19?? Shelter Goals (>6 weeks): ?? 1. Patient will be independent with home exercise program after discontinued from Physical Therapy.?Met 01-28-19 *2. Pt will sit/drive 20 min??with Sx <??or = to 1-04/26??(At Eval: 09/23)??met??01/18/19 *3. Pt will stand??>10 min??with Sx <??or = to 1-04/26??(At Eval: 09/23)met??01/18/19 4.??Pt will perform bed mobility (scooting, rolling, supine to sit etc.)??with minimal Sx -04/26 (not met 01-28-19) 5. Pt will walk (with walker) >10 min with burning??Sx < or = to??1-2 in her feet??(not [id number], varies day to day) 6. Pt will get dressed in the morning with??Sx < or = to??1-2 partially met 01-28-19 (some good days and some bad days) Certification Dates:??01/12/19 - 04/11/19 Re-Certification: ?? 01/12/19 - 04/11/19 POC 2x/week x 90 days. Patient continues to benefit from skilled PT to work toward the above goals and maximize strength. Therapeutic Exercise: ??Increase Strength and Endurance to improve sitting tolerance, lifting tolerance, standing tolerance and walking tolerance. Neuromuscular Re-Education: ??Improve neuromuscular abilities to improve posture and motor control with ADLs??. Therapeutic Activities: ??Train in proper body mechanics/posture to ensure safety and proper form when lifting/carrying heavy objects at home. Sherin Nguyễn, PT ??01/12/2019, 12:56 PM ?? Precautions/Other Information: Follow up with MD:??After 8 visits, Directional Preference:??lumbar: flexion, cervical: neutral, Hx:??Diabetes, HTN, B TKA, central pain syndrome, cervical spondylosis and stenosis,??L-Ext??#100, C- Ext??#213, HEP:??unknown?10/19/18:??Patient used stool to get on/off G/H auxillary.??C-Ext ROM: 27-78 only, No ANTI-GRAVITY CERVICAL rotation 12/10/18 Recommendations/Communication: D/c to HOME EXERCISE PROGRAM of seated lumbar extension exercise and torso rotation with tubing, Seated neck extension: 5# wt recommendation. Total timed code min: 40 Total treatment time: 40 Khadijah Pan PTA 01/28/2019, 2:34 PM T EDUCATOR documented in this encounter Plan of Treatment Not on filedocumented as of this encounter Visit Diagnoses Diagnosis Mechanical low back pain - Primary Lumbago Cervical spine pain Cervicalgia documented in this encounter Care Teams Bull Wheel Worker Relationship Specialty Start Date End Date Thalia Barron PA-C PCP - General Physician Medical Diagnostic Radiographer 10/06/18 documented as of this encounter
--- OUTSIDE RECORDS SUMMARY | 2022-01-12 12:44 | XMS_ITS | Clinical Summary ---
:1955 Author Organization [facility] Address [address], [place] [address] Care Team Providers Name Role Phone Thalia Barron PA-C Primary Care Provider Unavailable Source Comments You are receiving this document as you are listed as the primary care provider,follow-up provider, or the patient has been referred to you for consultation.This is in compliance with the Medicare and Medicaid EHR Incentive Program,which states Providers who transition their patient to another setting of careor provider of care or refers their patient to another provider of care shouldprovide summarycare record for each transition of care or referral. Virtual Command Allergies Active Allergy Reactions Severity Noted Date Comments Other 04/29/2009 PN: LW Other1: -NKA LW Other2: -NKA Review Contrast Media 04/29/2009 PN: LW CM1: >>> NO CONTRAST ADVERSE REACTIO N <<< Reaction : Review Food Intolerance 04/29/2009 PN: LW FI1: NKA LW FI2: NKA Medications Medication Sig Dispensed Refills Start End Date Status Date ATENOLOL 50 MG OR TABS Take one tablet 0 07/05/200 Active by mouth every 8 day. REMERON 15 MG OR TABS Take one tablet 0 200 Active by mouth daily 8 ACYCLOVIR 200 MG OR CAPS as needed 0 Active 8 TRAZODONE HCL 50 MG OR Take one tablet 0 07/05/200 Active TABS by mouth at 8 bedtime. VITEX EXTRACT 175 MG OR Take one capsule 0 200 Active CAPS by mouth twice 8 daily COENZYME Q10 100 MG OR Take one tablet 0 07/05/200 Active TABS by mouth daily 8 L-LYSINE HCL 500 MG OR Take 2 tablets by 0 200 Active TABS mouth every 8 morning FISH OIL 1200 MG OR CAPS Take by mouth 0 Active twice daily 8 DOCUSATE SODIUM 100 MG OR Take 1 tablet by 0 00 Active CAPS mouth 4 times 8 daily CITRACAL + D 315-200 Take 2 tablets by 0 Active MG-UNIT OR TABS mouth daily 8 GLUCOSAMINE CHONDROITIN Take 2 tablets by 0 07/06/19 0 Active COMPLX OR TABS mouth daily 8 MULTIPLE VITAMIN TABS Take one tablet 0 Active by mouth twice 8 daily. FOLIC ACID 400 MCG OR TABS Take one tablet 0 00 Active by mouth 8 GNP SENNA 8.6 MG OR CAPS Take 2-4 tablets 0 07/06/19 0 Active by mouth daily as 8 needed at bedtime ECHINACEA 400 MG OR CAPS Take one tablet 0 Active by mouth twice 8 daily TYLENOL ARTHRITIS PAIN 650 Take 2 tablets by 0 07/05 Active MG OR TBCR mouth as needed 8 IBUPROFEN 200MG ORAL TABS Take 1-2 tablets 0 Active by mouth every 8 4-6 hours as needed for pain. INDOMETHACIN 50 MG OR CAPS Take one capsule 0 Active by mouth three 8 times a day CYMBALTA 30MG ORAL CAPS Take 4 capsules 0 200 Active by mouth daily 8 hydrochlorothiazide (AKA Take 1 tablet by 03/27/19 1 Active HYDRODIURIL) 25 MG tablet mouth daily 0 (every 24 hours). LW Addl Instr:Indicated for: High Blood Pressure LYSINE OR Take 1 tablet by 0 Act shandra mouth 2 times 0 daily. LW Addl Instr:pt takes in morning and at noon Psyllium (METAMUCIL) 48.57 Take 1 tsp by 0 Active % powder mouth daily 0 (every 24 hours). LW Addl Instr:Dissolve in full glass of water or juice. loratadine (AKA CLARITIN) Take 1 tablet by 90 3 01 Active 10 MG tablet mouth daily as 0 needed. LW Addl Instr:pt only takes in summer Indicated for: Allergies gabapentin (AKA NEURONTIN) Take 1 capsule by 3 04/26 Active 300 MG capsule mouth 4 times 0 daily. LW Comment:info per pt LW Addl Instr:2 in am, 1 at noon, 1 in evening, and 1 at bedtime for total of 5 a day Multiple Vitamins-Minerals Take 1 tablet by 100 13 Active (MULTIVITAMIN OR) mouth daily 0 (every 24 hours). LevOCARNitine Take 1 tablet by 0 Active (L-CARNITINE) 250 MG mouth 2 times 0 daily. betamethasone dipropionate Apply 1 15 0 Active (AKA DIPROSONE) 0.05 % Application 0 cream topically NEEDED PRN. LW Addl Instr:for eczema on hand Hobson-3 Fatty Acids ([facility] Take 1 capsule by 0 01 Active FISH OIL) 1200 MG CAPS mouth 2 times 0 daily. calcium citrate-vitamin D Take 1 capsule by 0 Active (CITRACAL MAXIMUM) 315-250 mouth 2 times 0 MG-UNIT tablet daily. LW Addl Instr:pt takes 1 in the evening and 1 at bedtime amitriptyline (AKA ELAVIL) Take 1.5 tablets 90 3 Active 10 MG tablet by mouth nightly. 0 LW Addl Instr:pt takes 50mg in the evening and 15mg at bedtime amitriptyline (AKA ELAVIL) Take 1 tablet by 90 3 Active 50 MG tablet mouth every 0 evening. LW Addl Instr:pt takes 50mg in the evening and 15mg before bedtime valACYclovir (AKA VALTREX) Take 1 tablet by 0 Active 1 G tablet mouth 2 times 0 daily as needed. LW Addl Instr:if pt has cold sore, pt takes 1 in am and 1 in pm for total treatment senna (SENNA) 8.6 MG Take 2 tablets by 0 Active tablet mouth at bedtime 0 as needed. LW Addl Instr:INDICATED FOR CONSTIPATION. Coenzyme Q10 (CO Q 10) 100 Take 1 capsule by 0 04/26 Active MG mouth daily 0 (every 24 hours). [facility] ECHINACEA 400 MG CAPS Take 1 capsule by 0 Active mouth daily 0 (every 24 hours). DESOWEN LOTION/NIZORAL Apply topically 2 0 Active CREAM 1 TO 1 times daily. LW 0 Addl Instr:Desowen cream and Nizoral cream mixed 50/50. Apply as directed to affected area twice daily as needed. Acetaminophen 650 MG Take 1-2 tablets 50 12 Active by mouth every 8 0 hours as needed. LW Addl Instr:Maximum of 6 tablets/24 hours. nystatin-triamcinolone Apply 1 15 3 Active (AKA MYCOLOG-II) Applicatorful 0 014232-6.1 UNIT/GM-% cream topically 3 times daily. LW Addl Instr:pt applies to left corner of eye and left corner of mouth Carboxymethylcellulose Apply 1 drop to 15 0 Active Sodium 1 % eye gel eye 2 times daily 0 as needed. UNKNOWN MEDICATION Indications: PN: 0 Active 0 DULoxetine (AKA CYMBALTA) Take 1 capsule by 3 Active 60 MG capsule mouth 2 times 0 daily. LW Addl Instr:Indication: Fibromyalgia. pt takes 1 in the am and 1 at noon Active Problems Problem Noted Date Mechanical low back pain 10/15/2018 Cervical spine pain 10/15/2018 Sleep apnea 08/21/2002 Overview: Obstructive Sleep Apnea Hypopnea Immunizations Name Administration Dates Next Due Flu Vac Preserv Free (3+yrs) 01/14/2009 H1n1 Miv Sanofi 3+ Yr (Injected) 02/13/2009 Social History Tobacco Use Types Packs/Day Years Used Date Smoking Tobacco: Never Alcohol Use Standard Drinks/Week Comments No 0 (1 standard drink = 0.6 oz pure alcoho l) Recovering alcoholic Sex Assigned at Date Recorded Not on file Last Filed Vital Signs Vital Sign Reading Time Taken Comments Blood Pressure 118/80 05/01/2009 7:20 AM C: Dynamap MACHINE SHOP SPECIALIST Pulse 102 05/01/2009 7:20 AM MACHINE SHOP SPECIALIST Temperature 36.7 ??C (98.1 ??F) 05/01/2009 7:20 AM ORAL C: 9 8.1 F MACHINE SHOP SPECIALIST Respiratory Rate 16 05/01/2009 7:20 AM MACHINE SHOP SPECIALIST Oxygen Saturation 96% 05/01/2009 7:21 AM MACHINE SHOP SPECIALIST Inhaled Oxygen Concentration - - Weight - - Height - - Body Mass Index - - Plan of Treatment Health Maintenance Due Date Last Done Comments Colon Cancer Screening Plan 1955 Due Hep C Screening (Preventive 1955 Services) Medicare Annual Wellness 1955 Visit Mammogram 1955 COVID-19 Vaccine (#1) 1955 Cholesterol 1998 Zoster/Shingles (2 of 3) 07/08/2014 05/13/2014 Dexa 2018 Pneumococcal 65+ Yrs (2 - 09/21/2020 09/22/2019 PPSV23) Influenza (#1) 2021 01/07/2019, 12/30/2017, 12/30/2017, Additional history exists DTaP/Tdap/Td (2 - Tdap) 06/21/2024 06/21/2014, 07/23/2006, 07/23/2006 HepA Aged Out 07/23/2006, 07/23/2006 No longer eligible based on patient 's age to complete this topic HepB Aged Out No longer eligib le based on patient 's age to complete this topic Hib Aged Out No longer eligib le based on patient 's age to complete this topic IPV (Polio) Aged Out No longer eligib le based on patient 's age to complete this topic MCV4 Aged Out No longer eligib le based on patient 's age to complete this topic Insurance Payer Benefit Plan / Subscriber ID Effective Dates Phone Addre ss Type Group MEDICARE MEDICARE [id number] 2012-Presen [id number] Medicare MANAGED CARE t 5 BCBS BCBS [place] [id number] 2016-Presen [phone] [address] Medicare BLUE t 5 [place] [address] Guarantor Name Account Type Relation to Date of Phone Billing Patient Address Dilcia Multani, Personal/Family Self 1955 [address] (Home) [place] [phone] (Work) Dilcia Multani Personal/Family Self 1955 [address] (Home) [place] [address] Dilcia Multani Personal/Family Self 1955 [address] (Home) [place], [place] [phone] (Work) Care Teams Fuel Manager Relationship Specialty Start Date End Date Thalia Barron PA-C PCP - General Physician Roll Line Operator 10/06/18
--- OUTSIDE RECORDS SUMMARY | 2022-01-12 12:44 | XMS_ITS | Encounter Summary ---
:1955 Author [facility] Address [address] [address] Care Team Providers Name Role Phone Thalia Barron PA-C Primary Care Provider Unavailable Encounter Details Date Type Department Care Team Description 02/01/2019 Notes/Orders Physicians Neck and Nehemiah Kothari M echanical low back pain (Primary Dx); Back Center PT Cervical spine pain [place] [address] [place] [address], [address] [place] [id number] Social History Tobacco Use Types Packs/Day Years Used Date Smoking Tobacco: Never Alcohol Use Standard Drinks/Week Comments No 0 (1 standard drink = 0.6 oz pure alcoho l) Recovering alcoholic Sex Assigned at Date Recorded Not on file documented as of this encounter Progress Notes Nehemiah Kothari, PT - 02/01/2019 7:35 PM CST Physical Therapy Discharge Summary Discharge Date: 01/28/19 Discharge type: formal Patient completed 22 sessions of physical therapy from 10/15/18 to 01/28/19. Short Term Goals (4-6 weeks): ?? *1. Pt will sit/drive 10 min??with Sx <??or = to 3-4/10??(At Eval: 09/23)?MET 12/01/18 *2. Pt will stand??>3 min??with Sx <??or = to 3-4/10??(At Eval: 09/23) ??Met 01-18-19 3. Pt will??perform bed mobility (scooting, rolling, supine to sit etc.)??with moderate Sx 3-4/10?? MET 01/12/19 4. Pt will walk (with walker) ??>3 min with burning Sx <??or = to??3-06/24 in her feet ??Met 01-28-19 5. Pt will get dressed in the morning with??Sx <??or = to??3-4??MET 01/12/19?? Bin Filler Goals (>6 weeks): ?? 1. Patient will be independent with home exercise program after discontinued from Physical Therapy.?Met 01-28-19 *2. Pt will sit/drive 20 min??with Sx <??or = to -04/26??(At Eval: 09/23)??met??01/18/19 *3. Pt will stand??>10 min??with Sx <??or = to -04/26??(At Eval: 09/23)met??01/18/19 4.??Pt will perform bed mobility (scooting, rolling, supine to sit etc.)??with minimal Sx 1-2 (not met 01-28-19) 5. Pt will walk (with walker) >10 min with burning??Sx < or = to??1-2 in her feet??(not rub84-7-18, varies day to day) 6. Pt will get dressed in the morning with??Sx < or = to??1-04/26 partially met 01-28-19 (some good days and some bad days) Patient has been instructed in safe body mechanics with the following tasks: Neutral sitting position Standing posture Wide base of support Weight shift Other status update/follow up recommendations: Pt has met maximum benefit of skilled Physical Therapy and ready for D/C today. Pt instructed to follow up on PRN basis. Discharge Plans: HEP Cervical Head Weights resistance bands L-ext and T-roto Nehemiah Kothari PT 02/01/2019, 7:35 PM PRESIDENT PAYER documented in this encounter Plan of Treatment Not on filedocumented as of this encounter Visit Diagnoses Diagnosis Mechanical low back pain - Primary Lumbago Cervical spine pain Cervicalgia documented in this encounter Care Teams Rigging Man Relationship Specialty Start Date End Date Thalia Barron PA-C PCP - General Physician Director Of Oncology 10/06/18 documented as of this encounter
--- OUTSIDE RECORDS SUMMARY | 2022-01-12 12:44 | XMS_ITS | Encounter Summary ---
:1955 Author [facility] Address [address] [place] [address] Care Team Providers Name Role Phone Thalia Barron PA-C Primary Care Provider Unavailable Reason for Visit Reason Onset Date Comments BACK PAIN, LOW 01/28/2019 NECK PAIN 01/28/2019 Encounter Details Date Type Department Care Team Description 01/28/2019 Office Visit Physicians Prashanth and Cecilia Calloway, Post l aminectomy syndrome; Back Center Mechanical low back pain; [place] Cervical spine pain; [address] [facility] [address] [facility], [address] [place] [address] Social History Tobacco Use Types Packs/Day Years Used Date Smoking Tobacco: Never Alcohol Use Standard Drinks/Week Comments No 0 (1 standard drink = 0.6 oz pure alcoho l) Recovering alcoholic Sex Assigned at Date Recorded Not on file documented as of this encounter Patient Instructions Patient InstructionsCecilia Calloway MD - 01/28/2019 12:15 PM CST You have now completed your formal physical therapy program. Good work. Hopefully you are feeling improved but don't give up hope if you are not. We found that many patients improve over the next several months after discharge IF they continue their independent exercise program as instructed. Progress: Lumbar extensors: Started at: 38 foot-pounds Now: 88 foot pounds Goal: 90 Cervical extensors: Started at: 60 inch-pounds Now: 198 inch pounds Goal: 200 - 225 Temporary Setbacks Don't be discouraged by a bad day or re-injury. A strong spine doesn't eliminate the possibility of problems but it does do the following: ?? Reduce the chance that pain will return ?? Increase the odds of quick recovery ?? Decrease the severity of any re-injury or pain If you experience a setback, remember AIM: Anti-inflammatory medications such as ibuprofen or naproxen; use as directed Ice - use cold packs for initial discomfort or acute sprains or strains Motion - begin you light stretches immediately Avoid bed rest, which leads to rapid deconditioning. If pain persists, is severe, or significantly changes in nature, or if you limbs have persistent shooting pain, numbness, tingling, or weakness call our clinic or your family doctor. N TEACHER documented in this encounter Progress Notes Cecilia Calloway MD - 01/28/2019 12:15 PM CST Yaz is here for follow up and reports the following changes: Her back and leg symptoms have nearly resolved. Her neck pain was doing better until about 10 days ago. She had a mild flare up. It is improving with time and chiropractic and she feels it will settle down in a short while. Overall she feels much better since participating in the rehab program. She is stronger and more flexible. She reports she appreciates how much easier it is to turn her head. Patient is currently lifting 88 ft.-pounds for 20 reps in the lumbar extensor machine. At the start of rehab patient was lifting 38 ft.-pounds for 20 reps. Goal is 90 ft.-pounds for 15 - 20 reps. Patient is currently lifting 198 in.-pounds for 15 reps in the cervical extensor machine. At the start of rehab patient was lifting 60 in.-pounds for 20 reps. Goal is 200 - 225 in.-pounds for 15 - 20 reps. The following findings were noted on physical examination: Range of motion of the cervical spine reveals flexion to touch chin to chest and extension to 20 cm.Side bending was 45 degrees bilaterally. Rotation was 80 degrees to the right and 70 degrees to the left Assessment: Chronic low back and neck pain, good response to the rehabilitation program Further diagnostic testing: none The patient has reached his goals or progress has reached a plateau. Discharge is appropriate at this time. Recommendations for an independent home exercise program to maintain improvements and information about management of any future flares were discussed. Questions were answered. Total time for the evaluation was 15 minutes today with greater than half spent on counseling and education. The patient has been actively involved in her own treatment and will need to participate in a home program and learn to be responsible for self-care to achieve full benefit and maintain it. Independent exercise plan: Home program with seated lumbar extension and neck weight . Plan also includes aerobic exercise 3 times per week and daily stretches. Thalia Barron PA-C [address] [place] [id number] N TEACHER documented in this encounter Plan of Treatment Not on filedocumented as of this encounter Visit Diagnoses Diagnosis Post laminectomy syndrome Postlaminectomy syndrome, unspecified re gion Mechanical low back pain Lumbago Cervical spine pain Cervicalgia Muscular deconditioning Muscular wasting and disuse atrophy, not elsewhere classified documented in this encounter Care Teams Community Assistant Relationship Specialty Start Date End Date Thalia Barron PA-C PCP - General Physician Investigative Analyst 10/06/18 documented as of this encounter
--- OUTSIDE RECORDS SUMMARY | 2022-01-12 12:44 | XMS_ITS | Encounter Summary ---
:1955 Author Organization [email or web address] Address [address], [place] [address] Care Team Providers Name Role Phone Thalia Barron PA-C Primary Care Provider Unavailable Reason for Visit Reason Comments Other Home Exercise Question Encounter Details Date Type Department Care Team Description 02/04/2019 Telephone Physicians Prashanth and Maxim, Marimar Cid PTA Other (Home Exercise Back Center [facility] [address] [facility], Question) [address] [facility], [facility] [address] [place] [address] [place] [address] [phone] Social History Tobacco Use Types Packs/Day Years Used Date Smoking Tobacco: Never Alcohol Use Standard Drinks/Week Comments No 0 (1 standard drink = 0.6 oz pure alcoho l) Recovering alcoholic Sex Assigned at Date Recorded Not on file documented as of this encounter Nursing Notes Catherine Ramirez - 02/04/2019 1:53 PM CST Yaz called back and stated that she found her answer. I told her I would let the therapy staff know, and no reason to return call back. Catherine Ramirez 02/04/2019, 1:53 PM NESS SUPPORT ASSOCIATE Catherine Ramirez - 02/04/2019 1:34 PM CST Yaz called and has a question regarding her HEP for the head harness exercise. She stated that she does not have a head harness and she was given another option, but doesn't have the information on it. I reviewed chart, and it states to do the seated exercise with #5. Could you please call her to review HEP without the head weight? Catherine Ramirez 02/04/2019, 1:35 PM NESS SUPPORT ASSOCIATE documented in this encounter Plan of Treatment Not on filedocumented as of this encounter Visit Diagnoses Not on filedocumented in this encounter Care Teams Investigative Research Specialist Relationship Specialty Start Date End Date Thalia Barron PA-C PCP - General Physician Freelance Recruiter 10/06/18 documented as of this encounter
[2022-01-12 12:45] LABS: Slide Review Acceptable Review (Acceptable); Slide Review Reflex Yes
--- OUTSIDE RECORDS SUMMARY | 2022-01-12 12:45 | XMS_ITS | Encounter Summary ---
:1955 Author Organization [facility] Address [address] [place] [id number] Care Team Providers Name Role Phone Thalia Barron PA-C Primary Care Provider Unavailable Reason for Visit Reason Comments BACK PAIN, LOW NECK PAIN Consult/Transfer Care (Routine) - Closed Specialty Diagnoses / Procedures Referred By Contact Refer red To Contact Physical Therapy Diagnoses Other cervical disc degeneration, unspecified cervical region (HRC) Spinal stenosis, cervical region CERV PAIN STENOSIS OF SPINE LOW BACK PAIN Thalia Barron, [facility] [place] [address] [place] [address] [place] [address], [address] [place] [address] [place] [address] Phone: Fax: Referral ID Status Reason Start Date Expiration Date Visits Requ ested Visits Authorized [id number] Closed 10/06/2018 01/05/2020 999 [id number] Encounter Details Date Type Department Care Team Description 11/17/2018 Therapy Physicians Neck and Bubba Kwong, [facility] hanical low back pain (Primary Dx); Back Center [facility] jayson [facility] Cervical spine pain [address] [facility], [address] [facility] , [address] [place] [address] [place] [address] [place] [address] [phone] (Wo rk) Social History Tobacco Use Types Packs/Day Years Used Date Smoking Tobacco: Never Alcohol Use Standard Drinks/Week Comments No 0 (1 standard drink = 0.6 oz pure alcoho l) Recovering alcoholic Sex Assigned at Date Recorded Not on file documented as of this encounter Progress Notes Bubba Kwong PTA - 11/17/2018 11:15 AM CDT 11/17/2018 Visit # 7 Protocol: Neck??(acute, disc, stenosis)??and??back (acute, disc and advance out as tolerated) Start: 1128a (13 minutes late) End: 1203p (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 I've had a morning from hell, how's that? No change yet since starting per pt. Cervical Cervical 11/17/2018 Set 1 Ext % Max 80% Set 1 Ext ROM 27-78 Set 1 Ext Wgt 117 Set 1 Ext Reps 20 Set 1 Ext Tul 96 Set 1 Ext Kevin RPE 5 Set 2 Ext % Max 80% Set 2 Ext ROM 27-78 Set 2 Ext Wgt 117 Set 2 Ext Reps 20 Set 2 Ext Tul 96 Set 2 Ext Kevin RPE 5 Objective Tests & Measures: Tests performed today (see reviewflowsheet for score and outcomes): : None Performed Today Warm Up: Movement Specific Training: Not Completed none today ICE: Neck Lumbar Lumbar & Torso 11/17/2018 Set 1 Ext % Max 60% Set 1 Ext ROM 6-36 Set 1 Ext Wgt 42 Set 1 Ext Reps 30 Set 1 Ext Tul 144 Set 1 Ext Kevin RPE 4-5 Set 2 Ext % Max - Set 2 Ext ROM - Set 2 Ext Wgt - Set 2 Ext Reps - Set 2 Ext Tul - Set 2 Kevin RPE - Therapeutic Exercise (25 min): Patient performed isolated cervical extension exercise and auxillary exercises to improve muscle strength, to improve muscle endurance, increase strength and endurance levels of supporting spinal muscle groups and to strengthen postural muscles to decrease stresses on the spine to increase tolerance for sitting, standing, walking, sleeping, bed mobility, lifting, driving, personal care tasks and household tasks Verbal cues instructed in proper form and control on Cervical Extension machine to avoid substitution and momentum. Neuromuscular Re-Education (10 min): Patient performed isolated lumbar extension to decrease substitution patterns present with chronic pain, to retrain muscles for proper sequencing and improve muscle recruitment patterns to increase tolerance for sitting, standing, walking, sleeping, bed mobility, lifting, driving, personal care tasks and household tasks. Verbal cues needed for proper form and control on Lumbar Extension machine with instruction to avoidsubstitution with other muscle groups and to facilitate correct muscle firing sequence and to avoid momentum, improper form and too fast with reps. Auxillary Auxillary 11/17/2018 Abs Wgt Set 1 25 Abs Reps Set 1 25 Abs Wgt Set 2 - Abs Reps Set 2 1 set Glute Wgt Set 1 50 Glute Reps Set 1 20 Glute Wgt Set 2 - Glute Reps Set 2 1 set Rows Wgt Set 1 40 Rows Reps Set 1 25 Rows Reps Set 2 1 set Lats Wgt Set 1 40 Lats Reps Set 1 20 Lats Reps Set 2 1 set Other Quads 35# 1x12, Hams 35# 1x20 HEP - Therapeutic Activities (0 min): Not performed today. Patient Education: Patient was instructed in correlation of strength and function to increase their understanding of the benefits related to completing the [facility] Rehab program Opted for 1 set on all auxiliary machines due to pt running late. Assessment: Yaz Multani tolerated treatment ok, 1 set on auxiliary machines due to pt late. Able to increase glut/hams ok. Should improve as she gets stronger with less pain and more flexible with stretches. Observed form and speed on all reps to avoid substitution, proper positioning and good technique. Gives good effort in machines. Goals: Short Term Goals (4-6 weeks): *1. Pt will sit/drive 10 min??with Sx <??or = to 3-4/10??(At Eval: 09/23) *2. Pt will stand??>3 min??with Sx <??or = to 3-4/10??(At Eval: 09/23) 3. Pt will??perform bed mobility (scooting, rolling, supine to sit etc.)??with moderate Sx 3-4/10 4. Pt will walk (with walker) ??>3 min with burning Sx <??or = to??3-4/10 in her feet 5. Pt will get dressed in the morning with??Sx < or = to??3-4/10 ?? Long-Term Goals (>6 weeks): 1. Patient will be independent with home exercise program after discontinued from Physical Therapy. *2. Pt will sit/drive 20 min??with Sx <??or = to 1-04/26??(At Eval: 09/23) *3. Pt will stand??>10 min??with Sx <??or = to 1-04/26??(At Eval: 09/23) 4.??Pt will perform bed mobility (scooting, rolling, supine to sit etc.)??with minimal Sx 1-2/10 5. Pt will walk (with walker) >10 min with burning??Sx < or = to??1-210 in her feet 6. Pt will get dressed in the morning with??Sx < or = to??1-2 Certification Dates: 10/15/18-01/13/19 ?? Precautions/Other Information: Follow up with MD:??After 8 visits, Directional Preference:??lumbar: flexion, cervical: neutral, Hx:??Diabetes, HTN, B TKA, central pain syndrome, cervical spondylosis and stenosis,??L-Ext??#100, C- Ext??#213, HEP:??unknown?10/19/18:??Patient used stool to get on/off G/H auxillary.?? Recommendations/Communication: 80% lumbar extension and 60% cervical extension next. I don't like to go to Hard on second set, first set ok on Medx machines. Total timed code min: 35 Total treatment time: 35 Bubba Kwong PTA 11/17/2018, 12:03 PM documented in this encounter Plan of Treatment Not on filedocumented as of this encounter Visit Diagnoses Diagnosis Mechanical low back pain - Primary Lumbago Cervical spine pain Cervicalgia documented in this encounter Care Teams Senior Marketing Analyst Relationship Specialty Start Date End Date Thalia Barron PA-C PCP - General Physician Residential Supervisor 10/06/18 documented as of this encounter
--- OUTSIDE RECORDS SUMMARY | 2022-01-12 12:45 | XMS_ITS | Encounter Summary ---
:1955 Author [facility] Address [address], [place] [address] Care Team Providers Name Role Phone Thalia Barron PA-C Primary Care Provider Unavailable Reason for Visit Reason Comments Other Encounter Details Date Type Department Care Team Description 01/04/2019 Telephone Physicians Neck and Back Center Yuri Calloway MD [facility] [id number] [place] [address] [place] , [address] [place] [address] Social History Tobacco Use Types Packs/Day Years Used Date Smoking Tobacco: Never Alcohol Use Standard Drinks/Week Comments No 0 (1 standard drink = 0.6 oz pure alcoho l) Recovering alcoholic Sex Assigned at Date Recorded Not on file documented as of this encounter Nursing Notes Nehemiah Kothari PT - 01/04/2019 11:33 AM CDT Thank you for the update. Catherine Ramirez - 01/04/2019 9:57 AM CDT Yaz called and stated that she was able to set up and stand at a Jainism event on Friday for several hours with minimal pain, and then go grocery shopping. She did stated that she saw her PCP andit was determined that she will need to be wearing a holter monitor and that appointment is for of this week. We rescheduled her appointment for this week and scheduled a few weeks out. Catherine Ramirez 01/04/2019, 10:00 AM documented in this encounter Plan of Treatment Not on filedocumented as of this encounter Visit Diagnoses Not on filedocumented in this encounter Care Teams Informix Developer Relationship Specialty Start Date End Date Thalia Barron PA-C PCP - General Physician Orthotist Prosthetist 10/06/18 documented as of this encounter
--- OUTSIDE RECORDS SUMMARY | 2022-01-12 12:45 | XMS_ITS | Encounter Summary ---
:1955 Author Organization [employer] Address [address], [place] [address] Care Team Providers Name Role Phone Thalia Barron PA-C Primary Care Provider Unavailable Reason for Visit Reason Comments Other HEP bands Encounter Details Date Type Department Care Team Description 01/21/2019 Telephone Physicians Neck and Back Nehemiah Kothari, PT Other (HEP bands) [facility] [address] [facility] [address] [facility], [address] [place] [address] [place] [address] [phone] Social History Tobacco Use Types Packs/Day Years Used Date Smoking Tobacco: Never Alcohol Use Standard Drinks/Week Comments No 0 (1 standard drink = 0.6 oz pure alcoho l) Recovering alcoholic Sex Assigned at Date Recorded Not on file documented as of this encounter Nursing Notes Nehemiah Kothari PT - 01/21/2019 11:27 AM CST Pt advised on which exercise bands to buy that will be sufficient for maintaining her strength. Pt will likely be D/C soon to HEP as advancing cervical extension exercise intensity seems to be making her headaches worse. Pt has 2 more visits scheduled to ensure independence in her HEP. Pt stated she pl ans on coming in for her 01/25/19 appointment. Catherine Melton - 01/21/2019 8:45 AM CST Yaz called and stated that she over did it last workout and wanted to cancel her appointment for today. She has a headache on the top of her head. She also stated that she'd like a call back, as she is trying to buys extension bands for HEP and isnot sure which ones to buy. Please call her with information. Catherine Ramirez 01/21/2019, 8:46 AM ER DIVER NET documented in this encounter Plan of Treatment Not on filedocumented as of this encounter Visit Diagnoses Not on filedocumented in this encounter Care Teams Shield Operator Relationship Specialty Start Date End Date Thalia Barron PA-C PCP - General Physician Dynamotor Repairer 10/06/18 documented as of this encounter
--- OUTSIDE RECORDS SUMMARY | 2022-01-12 12:45 | XMS_ITS | Encounter Summary ---
:1955 Author Organization [email or web address] Address [address] [place] [address] Care Team Providers Name Role Phone Thalia Barron PA-C Primary Care Provider Unavailable Reason for Visit Reason Onset Date Comments ARM PAIN 11/20/2018 LEG PAIN 11/20/2018 BACK PAIN, LOW 11/20/2018 NECK PAIN 11/20/2018 Encounter Details Date Type Department Care Team Description 11/20/2018 Office Visit Physicians Prashanth and Cecilia Calloway, Post l aminectomy syndrome; Back Center Mechanical low back pain; [place] Cervical disc syndrome; [address] [place] Cervical spin al stenosis; Center, [address] Cervical spine pain; [place] [address] Muscular deconditioning [phone] Social History Tobacco Use Types Packs/Day Years Used Date Smoking Tobacco: Never Alcohol Use Standard Drinks/Week Comments No 0 (1 standard drink = 0.6 oz pure alcoho l) Recovering alcoholic Sex Assigned at Date Recorded Not on file documented as of this encounter Patient Instructions Patient InstructionsCecilia Calloway MD - 11/20/2018 10:15 AM CDT Patient Visit Summary (follow up): Progress with weights: Lumbar extensors: Started at: 30 foot-pounds Now: 42 foot pounds Goal: 90 Cervical extensors: Started at: 60 inch-pounds Now: 117 inch pounds Goal: 225 + Schedule physical therapy visits twice weekly or as instructed. Continue the home exercise program as instructed by physical therapy. Gradually increase activities as tolerated and instructed by physical therapy. Continue using colds packs as needed for soreness after exercise. Be reassured that ups and downs are common during a course of physical therapy and do not prevent you from achieving a good result. Discuss plans for your maintenance exercise program with the physical therapy. Follow up: 6 weeks documented in this encounter Progress Notes Cecilia Calloway MD - 11/20/2018 10:15 AM CDT Yaz is here for recheck and reports the following changes: She has noted slight improvement with regard to her neck and back pain. She feels she is tolerating the rehab program well and in fact reports that she thinks the intensity can be increase. Since she was last seen she required excision of an ingrown toenail. The pain associated with this has increased her pain levels in general but it is starting to improve. Patient is currently lifting 42 ft.-pounds for 20 reps in the lumbar extensor machine. At the start of rehab patient was lifting 30 ft.-pounds for 20 reps. Goal is 90 ft.-pounds for 15 - 20 reps. Patient is currently lifting 117 in.-pounds for 20 reps in the cervical extensor machine. At the start of rehab patient was lifting 60 in.-pounds for 20 reps. Goal is 225+ in.-pounds for 15 - 20 reps. The following findings were noted on physical examination: Alert female in no acute distress. Head: Normocephalic and atraumatic Eyes: No jaundice. Ears: No large abnormalties noted on external surfaces of ears Face: No facial droop noted Lumbar Spine Musculoskeletal: She transferred from sit to stand independently. Gait: Able to walk unassisted but with antalgic gait and flexed posture.. Lumbar flexion was measured at 60??, extension at 10??, lateral bending at 35?? to the right and 20 to the left. Straight leg raise: negative in the seated position. Cervical Spine/Neck: Inspection: normal. Cervical range of motion shows flexion to 3 centimeters chin to chest, extension to 20 cm chin to chest, lateral bending to 30?? to the right and 20?? to the left. Rotation was 70 degrees to the right and 60 degrees to the left. Pulmonary: Breathing unlabored. Psychiatric: Orientation: Normal times 4 Mood/affect: Pleasant and appropriate. Established Problems, stable/improved: Post laminectomy syndrome, neck pain, spinal stenosis, deconditioning syndrome. Centralized pain syndrome Further workup/testing/referrals: No particular imaging or diagnostics are needed immediately, though this may be reconsidered depending on clinical trajectory. Reviewed with patient how her response to rehabilitation matches typical pattern at this stage. Because this patient continues to progress both objectively and subjectively, I feel further rehabilitation is indicated.?? I recommend continuation of physical therapy 2 times per week. Patient will follow-up: 6 weeks. Comments: Will increase the intensity of her rehabilitation program. Total time for the evaluation was 25 minutes today with greater than half spent on counseling and education. I have reviewed the program with the patient and answered all of her questions. The patient hasl been actively involved in her own treatment and will need to participate in a home program and learn to be responsible for self-care by the end of treatment. We discussed the necessity to do the home program indefinitely after discharge from rehabilitation to maintain benefits. 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
--- OUTSIDE RECORDS SUMMARY | 2022-01-12 12:45 | XMS_ITS | Encounter Summary ---
:1955 Author Organization [facility] Address [address] [place] [address] Care Team Providers Name Role Phone Thalia [...] OF SPINE LOW BACK PAIN Thalia Barron, [facility] [place] [address] [address] [facility], [address] [place] [address] [place] [address] Phone: Fax: Referral ID Status Reason Start Date Expiration Date Visits Requ ested Visits Authorized [id number] Closed 10/06/2018 01/05/[phone] Encounter Details Date Type Department Care Team Description 01/15/2019 Therapy Physicians Neck and Marimar Pan PTA Mechanical low back pain (Primary Dx); Back Center [facility] [id number] [facility], Cervical spine pain [address] [facility], [address] [place] [address] [place] [address] [phone] Social History Tobacco Use Types Packs/Day Years Used Date Smoking Tobacco: Never Alcohol Use Standard Drinks/Week Comments No 0 (1 standard drink = 0.6 oz pure alcoho l) Recovering alcoholic Sex Assigned at Date Recorded Not on file documented as of this encounter Progress Notes Khadijah Pan PTA - 01/15/2019 10:45 AM CDT 01/15/2019 Visit # 19 Protocol: Neck (acute, disc, stenosis), Back (acute, disc, adv. Out as tolerated) Start: 10:50 am End: 11:30 am (ELEMENTARY CLASSROOM TEACHER Visit # 2 Subjective: Patient states she is doing better. She doesn't have extra energy but pain over all is more manageable. Patient was able to keep standing for about 15 min. Without sitting but does lean on the wall at times to take pressure off her back. Cervical Cervical 01/15/2019 Set 1 Ext % Max 60% Set 1 Ext ROM 27-87 Set 1 Ext Wgt 120 Set 1 Ext Reps 30 Set 1 Ext Tul - Set 1 Ext Kevin RPE 3/10 Set 2 Ext % Max - Set 2 Ext ROM - Set 2 Ext Wgt - Set 2 Ext Reps - Set 2 Ext Tul - Set 2 Ext Kevin RPE - Left Rot % Max Left Rot ROM Left Rot Wgt Left Rot Reps - Left Rot Kevin RPE declined to do Right Rot % Max Right Rot ROM Right Rot Wgt Right Rot Reps - Right Rot Kevin RPE - Objective Tests & Measures: 80% Of max wt on cervical rotation 10% wt increase on lumbar extension ROM changes: increased rO Tests performed today (see reviewflowsheet for score and outcomes): : None Performed Today Warm Up: Movement Specific Training: Not Completed Mat Exercises Completed none today Patient does a rount ICE: Back and Neck Lumbar Lumbar & Torso 01/15/2019 Set 1 Ext % Max 100% Set 1 Ext ROM 3-42 Set 1 Ext Wgt 88 Set 1 Ext Reps 20 Set 1 Ext Tul 70 Set 1 Ext Kevin RPE 6/10 Set 2 Ext % Max 100% Set 2 Ext ROM 3-42 Set 2 Ext Wgt 88 Set 2 Ext Reps 15 Set 2 Ext Tul 122 Set 2 Kevin RPE maxed Left Rot % Max - Left Rot ROM - Left Rot Wgt - Left Rot Reps - Left Rot Philip RPE - Right Rot % Max - Right Rot ROM - Right Rot Wgt - Right Rot Reps - Right Rot Kevin RPE - Therapeutic Exercise (40 min): Patient performed isolated lumbar extension exercise, isolated cervical rotation exercise and auxillary exercises to increase tolerance and improve muscle strength, to improve muscle endurance, to improve muscle flexibility, to improve range of motion, to increase strength for seated posture, to increase strength for standing posture, increase strength and endurance levels of supporting spinal musclegroups and to strengthen postural muscles to decrease stresses on the spine. Verbal cues needed for proper form and control on Lumbar Extension machine with instruction to avoidsubstitution with other muscle groups and to facilitate correct muscle firing sequence and to avoid momentum, improper form and too fast with reps. Pt educated on cervical rotation exercise with explanation of targeted muscle that rotate the neck for ADL. Pt cued on control both directions and avoid any compensation of the incorrect muscles. Neuromuscular Re-Education (0 min): None performed today. Auxillary Auxillary 01/15/2019 Abs Wgt Set 1 55 Abs Reps Set 1 20 Abs Wgt Set 2 55 Abs Reps Set 2 20 Glute Wgt Set 1 80 Glute Reps Set 1 30 Glute Wgt Set 2 - Glute Reps Set 2 - Rows Wgt Set 1 55 Rows Reps Set 1 20 Rows Wgt Set 2 55 Rows Reps Set 2 20 Lats Wgt Set 1 60 Lats Reps Set 1 20 Lats Wgt Set 2 65 Lats Reps Set 2 25 Other Quad 40# 20, 20 hams 40# 20, 20 HEP - Therapeutic Activities (0 min): Not performed today. Patient Education: Patient was instructed in specific review of patients progress and correlation of strength and function to increase their understanding of the benefits related to completing the PNBC Rehab program Assessment: ROM: increased on cervical extension. Patient did not want to do cervical rotation exercise so changed it to sub wt on cervical extension exercise. Pt tolerated the treatment fine with a good effort and an effective muscle fatigue level to improve muscle strength around the cervical and lumbar spine. Patient will then have more success with performing duties around the house, work relatedtasks and ADL.s without discomfort. Patient appears to having more good days than bad days the last couple sessions. Patient plans to continue at the fitness center once finished with PNBC. Goals: Short Term Goals (4-6 weeks): ?? *1. Pt will sit/drive 10 min??with Sx <??or = to 3-4/10??(At Eval: 09/23)?MET 12/01/18 *2. Pt will stand??>3 min??with Sx <??or = to 3-4/10??(At Eval: 09/23) ??Still difficult standing more than a few min 01/12/19 (able to do 15 min but used the wall to lean on) 3. Pt will??perform bed mobility (scooting, rolling, supine to sit etc.)??with moderate Sx 3-4/10?? MET 01/12/19 4. Pt will walk (with walker) ??>3 min with burning Sx <??or = to??3-4/10 in her feet ??Feet more of issue than low back, not applicable goal for pt. 01/12/19 5. Pt will get dressed in the morning with??Sx <??or = to??3-4/10??MET 01/12/19?? Workshop Manager Goals (>6 weeks): ?? 1. Patient will be independent with home exercise program after discontinued from Physical Therapy.?Progressing??12/17/18 *2. Pt will sit/drive 20 min??with Sx <??or = to 1-2/10??(At Eval: 09/23)??progressing, 12/17/18 *3. Pt will stand??>10 min??with Sx <??or = to 1-2/10??(At Eval: 09/23) 4.??Pt will perform bed mobility (scooting, rolling, supine to sit etc.)??with minimal Sx 1-2/10 5. Pt will walk (with walker) >10 min with burning??Sx < or = to??1-2/10 in her feet 6. Pt will get dressed in the morning with??Sx < or = to??1-2/10 ?? Certification Dates: 01/12/19 - 04/11/19 ?? Re-Certification: 01/12/19 - 04/11/19 POC 2x/week x 90 days. Patient continues to benefit from skilled PT to work toward the above goals and maximize strength. Therapeutic Exercise: Increase Strength and Endurance to improve sitting tolerance, lifting tolerance, standing tolerance and walking tolerance. Neuromuscular Re-Education: Improve neuromuscular abilities to improve posture and motor control with ADLs . Therapeutic Activities: Train in proper body mechanics/posture to ensure safety and proper form whenlifting/carrying heavy objects at home. Sherin Barclayky, PT 01/12/2019, 12:56 PM ?? Precautions/Other Information: Follow up with MD:??After 8 visits, Directional Preference:??lumbar: flexion, cervical: neutral, Hx:??Diabetes, HTN, B TKA, central pain syndrome, cervical spondylosis and stenosis,??L-Ext??#100, C- Ext??#213, HEP:??unknown?10/19/18:??Patient used stool to get on/off G/H auxillary.??C-Ext ROM: 27-78 only, No ANTI-GRAVITY CERVICAL rotation 12/10/18 Recommendations/Communication: 100% cervical extension 80% torso rotation Continue treatment per PT POC. visit, LENCHO, NDI, increase 5#on abs watch form/use elbows. Total timed code min: 40 Total treatment time: 40 Khadijah Pan PTA 01/15/2019, 11:50 AM documented in this encounter Plan of Treatment Not on filedocumented as of this encounter Visit Diagnoses Diagnosis Mechanical low back pain - Primary Lumbago Cervical spine pain Cervicalgia documented in this encounter Care Teams [employer] Executive Director Relationship Specialty Start Date End Date Thalia Barron PA-C PCP - General Physician Nailer Hand 10/06/18 documented as of this encounter
--- OUTSIDE RECORDS SUMMARY | 2022-01-12 12:45 | XMS_ITS | Encounter Summary ---
:1955 Author Organization [facility] Address [address] [place] [address] Care Team Providers Name Role Phone Thalia [...] OF SPINE LOW BACK PAIN Thalia Barron, [facility] WALLACE [address] [address] [facility], [address] [place] [address] [place] [address] Phone: Fax: Referral ID Status Reason Start Date Expiration Date Visits Requ ested Visits Authorized [id number] Closed 10/06/2018 01/05/[phone] Encounter Details Date Type Department Care Team Description 11/20/2018 Therapy Physicians Neck and Nehemiah Kothari M echanical low back pain (Primary Dx); Back [facility] Cervical spine pain [address] [facility], [address] [place] [address] [place] [address] [phone] Social History Tobacco Use Types Packs/Day Years Used Date Smoking Tobacco: Never Alcohol Use Standard Drinks/Week Comments No 0 (1 standard drink = 0.6 oz pure alcoho l) Recovering alcoholic Sex Assigned at Date Recorded Not on file documented as of this encounter Progress Notes Nehemiah Kothari PT - 11/20/2018 10:45 AM CDT 11/20/2018 Visit # 8 Protocol: Neck??(acute, disc, stenosis)??and??back (acute, disc and advance out as tolerated)?? Start: 10:50 End: 11:30 (DIRECTOR INSTRUCTIONAL MATERIAL Visit # 2 Subjective: States her foot is still sore since having her toe nail removed but other than that her neck and back are feeling good enough. Cervical Cervical 11/20/2018 Set 1 Ext % Max 60% Set 1 Ext ROM 24-78/27-78 Set 1 Ext Wgt 90 Set 1 Ext Reps 10/15 Set 1 Ext Tul 126 Set 1 Ext Kevin RPE 5 Set 2 Ext % Max - Set 2 Ext ROM - Set 2 Ext Wgt - Set 2 Ext Reps - Set 2 Ext Tul - Set 2 Ext Kevin RPE - Objective Tests & Measures: See flowsheet Tests performed today (see reviewflowsheet for score and outcomes): : None Performed Today Warm Up: Movement Specific Training: Completed Mat Exercises Completed ICE: Back and Neck Lumbar Lumbar & Torso 11/20/2018 Set 1 Ext % Max 80% Set 1 Ext ROM 3-42 Set 1 Ext Wgt 60 Set 1 Ext Reps 26 Set 1 Ext Tul 142 Set 1 Ext Kevin RPE 6 Set 2 Ext % Max 80% Set 2 Ext ROM 3-42 Set 2 Ext Wgt 60 Set 2 Ext Reps 25 Set 2 Ext Tul 133 Set 2 Kevin RPE 6-7 Therapeutic Exercise (32 min): Patient performed isolated lumbar extension exercise and auxillary exercises to increase strength and endurance levels of supporting spinal muscle groups to increase tolerance for bed mobility. Tactile and verbal cues to achieve proper body position and alignment prior to exercise. Verbal cuesfor proper pacing and form during exercise. Verbal cues to perform proper breathing pattern during exercise. Neuromuscular Re-Education (8 min): Patient performed isolated cervical extension exercise to decrease substitution patterns present with chronic pain, improve muscle recruitment patterns, improve self-correction of posture and improve kinesio awareness, in order to increase tolerance for driving. Tactile and verbal cues to achieve proper body position and alignment prior to exercise. Verbal cuesfor proper pacing and form during exercise. Verbal cues to perform proper breathing pattern during exercise. Verbal cues to stop exercise when desired fatigue level reached for goal of exercise today. Auxillary Auxillary 11/20/2018 Abs Wgt Set 1 30 Abs Reps Set 1 22 Abs Wgt Set 2 30 Abs Reps Set 2 22 Glute Wgt Set 1 - Glute Reps Set 1 - Glute Wgt Set 2 - Glute Reps Set 2 - Rows Wgt Set 1 45 Rows Reps Set 1 20 Rows Reps Set 2 - Lats Wgt Set 1 45 Lats Reps Set 1 20 Lats Reps Set 2 - Other - HEP RC lumbar ext, Supine lumbar rotations Therapeutic Activities ( min): Not performed today. Patient Education: Patient was instructed in specific review of patients progress to increase their understanding of the benefits related to completing the PNBC Rehab program HEP instruct, however not to perform these isolated strengthening exercises on their own outside of therapy until completion of therapy. Concept of delayed onset muscle soreness and to expect it a couple days after performing the strengthening exercises in therapy. Pt verbalized full understanding. Assessment: Pt getting pain in her upper back and arms during end range cervical extension so ROM returned to previous level and Sx resolved. Pt continues to progress toward LTG#1 as they demo good pacing and control of jani chair exercise, but will require further review to become independent. Goals: Short Term Goals (4-6 weeks): *1. [...] morning with??Sx < or = to??3-4/10 ?? Mcc Goals (>6 weeks): 1. Patient will be independent with home exercise program after discontinued from Physical Therapy. Progressing 11/20/18 *2. Pt will sit/drive 20 min??with Sx <??or = to 1-2/10??(At Eval: 09/23) *3. Pt will stand??>10 min??with Sx <??or = to 1-2/10??(At Eval: 09/23) 4.??Pt will perform bed mobility (scooting, rolling, supine to sit etc.)??with minimal Sx -04/26 5. Pt will walk (with walker) >10 min with burning??Sx < or = to??1-04/26 in her feet 6. Pt will get dressed in the morning with??Sx < or = to??-04/26 Certification Dates: 10/15/18-01/13/19 ?? Precautions/Other Information: Follow up with MD:??After 8 visits, Directional Preference:??lumbar: flexion, cervical: neutral, Hx:??Diabetes, HTN, B TKA, central pain syndrome, cervical spondylosis and stenosis,??L-Ext??#100, C- Ext??#213, HEP:??unknown?10/19/18:??Patient used stool to get on/off G/H auxillary.??C-Ext ROM: 27-78 only Recommendations/Communication: (see prec/other info) C-ext 90%, Start T-roto #20, G/H #55-60 Total timed code min: 40 Total treatment time: 40 Nehemiah Kothari, PT 11/20/2018, 11:34 AM documented in this encounter Plan of Treatment Not on filedocumented as of this encounter Visit Diagnoses Diagnosis Mechanical low back pain - Primary Lumbago Cervical spine pain Cervicalgia documented in this encounter Care Teams Retirement Actuary Relationship Specialty Start Date End Date Thalia Barron PA-C PCP - General Physician Document Image Technician 10/06/18 documented as of this encounter
--- OUTSIDE RECORDS SUMMARY | 2022-01-12 12:45 | XMS_ITS | Encounter Summary ---
:1955 Author Organization [facility] Address [address] [place] [address] Care Team Providers Name Role Phone Thalia [...] OF SPINE LOW BACK PAIN Thalia Barron, PnCarondelet HealthHungerford PA-C [address] [address] [facility], [address] [place] [address] [place] [address] Phone: Fax: Referral ID Status Reason Start Date Expiration Date Visits Requ ested Visits Authorized [id number] Closed 10/06/2018 01/05/[phone] Encounter Details Date Type Department Care Team Description 01/26/2019 Therapy Physicians Neck and Nehemiah Kothari M echanical low back pain (Primary Dx); [facility] Cervical spine pain [address] [facility], [address] [place] [address] [place] [address] [phone] Social History Tobacco Use Types Packs/Day Years Used Date Smoking Tobacco: Never Alcohol Use Standard Drinks/Week Comments No 0 (1 standard drink = 0.6 oz pure alcoho l) Recovering alcoholic Sex Assigned at Date Recorded Not on file documented as of this encounter Progress Notes Nehemiah Kothari PT - 01/26/2019 12:30 PM CST 01/26/2019 Visit # 21 Protocol: Neck (Acute, disc,stenosis) Back (Acute, Disc, adv out as lesley) Start: 12:24 End: 1:02 (STRATEGIC PLANNING DIRECTOR Visit # 0 Subjective: States she hasn't been doing her stretches because she has been having a stressful week.Her neck has been worse, but her low back is doing pretty well with only intermittent twinges of pain. She was able to do the bike warm up without pain in her legs for the first time today. Cervical Cervical 01/26/2019 Set 1 Ext % Max 60% Set 1 Ext ROM 33-78 Set 1 Ext Wgt 114 Set 1 Ext Reps 26 Set 1 Ext Tul 134 Set 1 Ext Kevin RPE 3-4 Set 2 Ext % Max - Set [...] Training: Not Completed Bike: Minutes 5 Intensity mod ICE: Back and Neck Lumbar Lumbar & Torso 01/26/2019 Set 1 Ext % Max 100% Set 1 Ext ROM 3-39 Set 1 Ext Wgt 88 Set 1 Ext Reps 20 Set 1 Ext Tul 97 Set 1 Ext Kevin RPE 9 Set 2 Ext % Max 100% Set 2 Ext ROM 3-39 Set 2 Ext Wgt 88 Set 2 Ext Reps 13 Set 2 Ext Tul 67 Set 2 Kevin RPE 10 Left Rot % Max - Left Rot ROM - Left Rot Wgt - Left Rot Reps - Left Rot Philip RPE - Right Rot % Max - Right Rot ROM - Right Rot Wgt - Right Rot Reps - Right Rot Kevin RPE - Therapeutic Exercise (31 min): Patient performed isolated lumbar extension exercise and auxillary exercises to increase strength and endurance levels of supporting spinal muscle groups to increase tolerance for sitting and driving Tactile and verbal cues to achieve proper body position and alignment prior to exercise. Verbal cuesfor proper pacing and form during exercise. Verbal cues to perform proper breathing pattern during exercise. Neuromuscular Re-Education (7 min): Patient performed isolated cervical extension exercise to decrease substitution patterns present with chronic pain, improve muscle recruitment patterns, improve self-correction of posture and improve kinesio awareness, in order to increase tolerance for standing, walking and bed mobility. Tactile and verbal cues to achieve proper body position and alignment prior to exercise. Verbal cuesfor proper pacing and form during exercise. Verbal cues to perform proper breathing pattern during exercise. Verbal cues to stop exercise when desired fatigue level reached for goal of exercise today. Auxillary Auxillary 01/26/2019 Abs Wgt Set 1 50 Abs Reps Set 1 20 Abs Wgt Set 2 50 Abs Reps Set 2 20 Glute Wgt Set 1 - Glute Reps Set 1 - Glute Wgt Set 2 - Glute Reps Set 2 - Rows Wgt Set 1 45 Rows Reps Set 1 15 Rows Wgt Set 2 - Rows Reps Set 2 - Lats Wgt Set 1 50 Lats Reps Set 1 20 Lats Wgt Set 2 - Lats Reps Set 2 - Other Quads #45 1x20, Hams #45 1x20 HEP - Therapeutic Activities ( min): Not performed today. Patient Education: To maintain stretches at home to prevent muscles from tightening up from strengthening exercise and to improve Sx. Pt verbalized full understanding. Assessment: Pt getting a slight headache from performing isolated cervical extension exercise and rows exercise despite ROM and intensity modification today. Pt is not expected to be able to progress exercise intensity further than maximum already achieved per most recent response. Goals: Short Term Goals (4-6 weeks): ?? *1. Pt will sit/drive 10 min??with Sx <??or = to 3-06/24??(At Eval: 09/23)?MET 12/01/18 *2. Pt will stand??>3 min??with Sx <??or = to 3-10??(At Eval: 09/23) ??Met 01-18-19 3. Pt will??perform bed mobility (scooting, rolling, supine to sit etc.)??with moderate Sx 3-4/10?? MET 01/12/19 4. Pt will walk (with walker) ??>3 min with burning Sx <??or = to??3-06/24 in her feet ??Feet more of issue than low back, not applicable goal for pt. ??01/12/19 5. Pt will get dressed in the morning with??Sx <??or = to??3-06/24??MET 01/12/19?? Instrument Operator Goals (>6 weeks): ?? 1. Patient will be independent with home exercise program after discontinued from Physical Therapy.?Progressing??12/17/18 *2. Pt will sit/drive 20 min??with Sx <??or = to -04/26??(At Eval: 09/23)??met 01/18/19 *3. Pt will stand??>10 min??with Sx <??or = to -04/26??(At Eval: 09/23)met 01/18/19 4.??Pt will perform bed mobility (scooting, rolling, supine to sit etc.)??with minimal Sx 1-04/26 5. Pt will walk (with walker) >10 min with burning??Sx < or = to??1-2 in her feet (not met 01-18-19) 6. Pt will get dressed in the morning with??Sx < or = to??-04/26 Certification Dates:??01/12/19 - 04/11/19 Re-Certification: ?? 01/12/19 [...] PM ?? Precautions/Other Information: Follow up with :??After 8 visits, Directional Preference:??lumbar: flexion, cervical: neutral, Hx:??Diabetes, HTN, B TKA, central pain syndrome, cervical spondylosis and stenosis,??L-Ext??#100, C- Ext??#213, HEP:??unknown?10/19/18:??Patient used stool to get on/off G/H auxillary.??C-Ext ROM: 27-78 only, No ANTI-GRAVITY CERVICAL rotation 12/10/18 Recommendations/Communication: Final HEP review flex/ext only and expected D/C, C-ext 80% Try 36-78 ROM, T-roto 80% Total timed code min: 38 Total treatment time: 38 Nehemiah Kothari, PT 01/26/2019, 1:52 PM ITY IMPROVEMENT MANAGER documented in this encounter Plan of Treatment Not on filedocumented as of this encounter Visit Diagnoses Diagnosis Mechanical low back pain - Primary Lumbago Cervical spine pain Cervicalgia documented in this encounter Care Teams Meat Grader Relationship Specialty Start Date End Date Thalia Barron PA-C PCP - General Physician Fixed Interest Dealer 10/06/18 documented as of this encounter
--- OUTSIDE RECORDS SUMMARY | 2022-01-12 12:45 | XMS_ITS | Encounter Summary ---
:1955 Author Organization [facility] Address [address] [place] [address] Care Team Providers Name Role Phone Thalia Barron PA-C Primary Care Provider Unavailable Reason for Visit Reason Comments NECK PAIN BACK PAIN Consult/Transfer Care (Routine) - Closed Specialty Diagnoses / Procedures Referred By Contact Refer red To Contact Physical Therapy Diagnoses Other cervical disc degeneration, unspecified cervical region (HRC) Spinal stenosis, cervical region CERV PAIN STENOSIS OF SPINE LOW BACK PAIN Thalia Barron, Pnbc [place] [address] [place] [address] [place] [address], [address] [place] [address] [place] [address] Phone: Fax: Referral ID Status Reason Start Date Expiration Date Visits Requ ested Visits Authorized [id number] Closed 10/06/2018 01/05/[phone] Encounter Details Date Type Department Care Team Description 01/08/2019 Therapy Physicians Neck and Sherin Nguyễn, [place] chanical low back pain (Primary Dx); Back Center Noman tyler PT Cervical spine pain [address] [facility], [address] [address] [place] [address] [place], [place] [id number] [phone] Social History Tobacco Use Types Packs/Day Years Used Date Smoking Tobacco: Never Alcohol Use Standard Drinks/Week Comments No 0 (1 standard drink = 0.6 oz pure alcoho l) Recovering alcoholic Sex Assigned at Date Recorded Not on file documented as of this encounter Progress Notes Sherin Nguyễn, PT - 01/08/2019 12:15 PM CDT 01/08/2019 Visit # 17 Protocol: Neck (acute, disc, stenosis) Back (acute, disc, advance out as tolerated) Start: 12:42 pmEnd: 1:28 pm (DIETARY SERVICE AIDE Visit # 0 Subjective: Patient arrived early for her originally scheduled appointment but was able to be seen earlier for treatment. Patient states she had a big jump in heartrate while at [facility] on 12/28/18 which jumped up to 158 bpm; reports got Halter Monitor yesterday and is wearing it for 48 hours; reports that MD that gave patient Halter Monitor told patient okay to exercise and wants patient to exercise. Patient reports her neck and back feel good enough and has some twinges in neck and back. Cervical Cervical 01/08/2019 Set 1 Ext % Max - Set 1 Ext ROM - Set 1 Ext Wgt - Set 1 Ext Reps - Set 1 Ext Tul - Set 1 Ext Kevin RPE - Set 2 Ext % Max - Set 2 Ext ROM - Set 2 Ext Wgt - Set 2 Ext Reps - Set 2 Ext Tul - Set 2 Ext Kvein RPE - Left Rot % Max 80% Left Rot ROM 42 Left Rot Wgt 28 Left Rot Reps 20 Left Rot Kevin RPE 5 Right Rot % Max 80% Right Rot ROM 42 Right Rot Wgt 28 Right Rot Reps 20 Right Rot Kevin RPE - Objective Tests & Measures: C-Rot 80% at 28 inch pounds. L-Ext 100% at 80 foot pounds. Tests performed today (see [facility] for score and outcomes): : Heartrate: See Assessment Section for all Heartrate measurements taken today. Warm Up: Movement Specific Training: Not Completed Bike: Minutes 5 Intensity - ICE: Back. Patient declined ice to neck Lumbar Lumbar & Torso 01/08/2019 Set 1 Ext % Max 100% Set 1 Ext ROM 3-36 Set 1 Ext Wgt 80 Set 1 Ext Reps 20 Set 1 Ext Tul 98 Set 1 Ext Kevin RPE 6 Set 2 Ext % Max - Set 2 Ext ROM Patient declined 2nd set due to pain. Set 2 Ext Wgt - Set 2 [...] Right Rot Kevin RPE - Therapeutic Exercise (42 min): Patient performed isolated lumbar extension exercise, isolated cervical rotation exercise and auxillary exercises to improve muscle strength, to improve muscle endurance and increase strength and endurance levels of supporting spinal muscle groups to increase tolerance for sitting, standing, walking, sleeping, bed mobility, lifting, reading, driving, personal care tasks, household tasks and work activities with PT monitoring patient's technique for form and pace. Patient with good form and pace. Neuromuscular Re-Education (4 min): Lumbar HEP: Instructed patient in Seated Lumbar Extension with Purple Tubing HEP with VCs for technique and positioning from PT; patient performed above exercise x 10 reps with good technique. PT informed patient that above exercise is recommended to do at time of D/C from PT 2x/week to fatigue to maintain lumbar strength. Auxillary Auxillary 01/08/2019 Abs Wgt Set 1 50 Abs Reps Set 1 20 Abs Wgt Set 2 50 Abs Reps Set 2 20 Glute Wgt Set 1 75 Glute Reps Set 1 20 Glute Wgt Set 2 - Glute Reps Set 2 - Rows Wgt Set 1 - Rows Reps Set 1 no time Rows Wgt Set 2 - Rows Reps Set 2 - Lats Wgt Set 1 55 Lats Reps Set 1 20 Lats Wgt Set 2 - Lats Reps Set 2 - Other With Lats: Used B [place]. Quads with Large Block and pillow behind back 35# 1x20. Hams with Large Block 40# 1x20. HEP Seated Lumbar Extension with Purple Tubing. Therapeutic Activities (0 min): Not performed today. Patient Education: Instructed patient in Seated Lumbar Extension with Tubing HEP - see NMR section for details. Assessment: Patient had MD Re-Check appointment with Dr. Calloway on 12/31/18 and per 12/31/18 MD Order,no changes to protocol and re-check in 4 weeks. Patient reports got Halter Monitor yesterday and is wearing it for 48 hours - see subjective section for details. Patient did 5 minute cardio warmup on bike and Heartrate = 84 bpm per patient's Fitbit prior to starting Med-X exercises. Patient then did C-Rot Med-X; had patient repeat same weight of C-Rot 80% at 28 inch pounds that patient did on 12/28/18 due to patient only did 10 reps bilaterally that day and patient reports that was due to having religious discomfort; informed patient that would repeat same weight today and patient able to complete 20 reps bilaterally; Heartrate = 87 bpm per Fitbit after C-Rot completed. Patient then did 1 set of L-Ext 100%; patient declined 2nd set due to lower back pain; HR = 90 bpm per Fitbit after L-Ext completed. Patient then did 1 set of Lats and HR = 91 bpm per Fitbit after. Patient then did 2 sets of Abs andHR = 90 bpm per Fitbit after. Patient then did 1 set of G/H and HR = 94 bpm per Fitbit after. Patient then did 1 set of Quads and HR = 95 bpm per Fitbit after. Patient then got in Hamstrings machine and HR = 98 bpm per Fitbit prior to doing the exercise and PT had patient sit and rest in the Hamstrings machine; patient reports I am feeling okay, I am feeling just fine; HR decreased to 83 bpm per Fitbit with the seated rest and then PT had patient do 1 set of Hamstrings Auxillary; HR = 80 bpm per Fitbit after Hamstrings Auxillary completed. Patient then did Seated Lumbar Extension with Purple Tubing exercise and HR = 84 bpm per Fitbit after. Patient took rest breaks between sets. At completion oftreatment, HR = 83 bpm per Fitbit. Patient gave good effort throughout treatment and tolerated treatment well and states, I felt fine the whole treatment. Goals: Short Term Goals (4-6 weeks): ?? *1. Pt will sit/drive 10 min??with Sx <??or = to 3-06/24??(At Eval: 09/23)?MET 12/01/18 *2. Pt will stand??>3 min??with Sx <??or = to 3-10??(At Eval: 09/23) ??Still difficult standing more than a few min 12/28/18 3. Pt will??perform bed mobility (scooting, rolling, supine to sit etc.)??with moderate Sx 3-4/10?? Patient able to get into bed easy but out is worse but that is better 12/31/18 4. Pt will walk (with walker) ??>3 min with burning Sx <??or = to??3-4/10 in her feet ??Still difficult walking more than a few min 12/17/18 5. Pt will get dressed in the morning with??Sx <??or = to??3-410??Been more sore over the last couple days 12/17/18 ?? Porcelain Mixer Goals (>6 weeks): ?? 1. Patient will be independent with home exercise program after discontinued from Physical Therapy.?Progressing??12/17/18 *2. Pt will sit/drive 20 min??with Sx <??or = to 1-2??(At Eval: 09/23)??progressing, 12/17/18 *3. Pt will stand??>10 min??with Sx <??or = to 1-2??(At Eval: 09/23) 4.??Pt will perform bed mobility (scooting, rolling, supine to sit etc.)??with minimal Sx 1-2 5. Pt will walk (with walker) >10 [...] only, No ANTI-GRAVITY CERVICAL rotation 12/10/18 Recommendations/Communication: Patient wearing Halter Monitor during treatment today - Ask patient if she got results of Halter Monitor. Next Treatment: C-Ext 100% and T-Rot 90% to 100%. Re-Cert due 01/13/19. Total timed code min: 46 Total treatment time: 46 Sherin Nguyễn, PT 01/08/2019, 9:22 PM documented in this encounter Plan of Treatment Not on filedocumented as of this encounter Visit Diagnoses Diagnosis Mechanical low back pain - Primary Lumbago Cervical spine pain Cervicalgia documented in this encounter Care Teams Hand Frame Surgical Elastic Knitter Relationship Specialty Start Date End Date Thalia Barron PA-C PCP - General Physician Facilities Plant Engineer 10/06/18 documented as of this encounter
--- OUTSIDE RECORDS SUMMARY | 2022-01-12 12:45 | XMS_ITS | Encounter Summary ---
:1955 [facility] Address [address] [place] [address] Care Team Providers Name Role Phone Thalia [...] OF SPINE LOW BACK PAIN Thalia Barron, [facility] [place] [address] [place] [address] [facility], [address] [place] [address] [place] [address] Phone: Fax: Referral ID Status Reason Start Date Expiration Date Visits Requ ested Visits Authorized [id number] Closed 10/06/2018 01/05/[phone] Encounter Details Date Type Department Care Team Description 11/05/2018 Therapy Physicians Neck and Marimar Pan PTA Mechanical low back pain (Primary Dx); Back Center [facility] [address] [address], Cervical spine pain [address] [facility], [address] [place] [address] [place] [address] [phone] Social History Tobacco Use Types Packs/Day Years Used Date Smoking Tobacco: Never Alcohol Use Standard Drinks/Week Comments No 0 (1 standard drink = 0.6 oz pure alcoho l) Recovering alcoholic Sex Assigned at Date Recorded Not on file documented as of this encounter Progress Notes Khadijah Pan PTA - 11/05/2018 10:30 AM CDT 11/05/2018 Visit # 5 Protocol: Neck (acute, disc, stenosis) and back (acute, disc and advance out as tolerated)Start: 10:32 am End: 11:15 am (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 She also states her back and neck have sore muscles. Patient uses 4 WW in the clinic to move around so needs extra room around the machines to park it. Cervical Cervical 11/05/2018 Set 1 Ext % Max 70% Set 1 Ext ROM 27-78 Set 1 Ext Wgt 105 Set 1 Ext Reps 20 Set 1 Ext Tul 126 Set 1 Ext Kevin RPE 5/10 Set 2 Ext % Max 70% Set 2 Ext ROM 27-78 Set 2 Ext Wgt 105 Set 2 Ext Reps 20 Set 2 Ext Tul 130 Set 2 Ext Kevin RPE 6/10 Objective Tests & Measures: 70% max wt ROM change: not able to progress Tests performed today (see reviewflowsheet for score and outcomes): : None Performed Today Warm Up: Movement Specific Training: Not Completed Bike: Minutes 5 Intensity Level 4 ICE: Neck Lumbar Lumbar & Torso 11/05/2018 Set 1 Ext % Max 60% Set 1 Ext ROM 6-33 Set 1 Ext Wgt 40 Set 1 Ext Reps 20 Set 1 Ext Tul 120 Set 1 Ext Kevin RPE 4/10 Therapeutic Exercise (26 min): Patient performed isolated cervical extension and auxillary exercises to increase tolerance and improve muscle strength, to improve muscle endurance, to improve muscle flexibility, to improve range of motion, to increase strength for seated posture, to increase strength for standing posture, increase strength and endurance levels of supporting spinal muscle groups and to strengthen postural muscles to decrease stresses on the spine. Pt required cues to lead up with chin or look up towards the ceiling to effectively engage cervical extensor muscles and avoid compensation with upper trapezius bilateral. Pt educated for proper form on aux. exercises to minimize compensatory movement patterns and reminded to keep a steady rep pace on aux. exercises to maximize strengthening along the entire movement. Neuromuscular Re-Education (14 min): Patient performed isolated lumbar extension to decrease substitution patterns present with chronic pain, to retrain muscles for proper sequencing, to improve self-correction of posture and to improve kinesio awareness to increase tolerance for sitting, standing, walking, sleeping, lifting, driving, personal care tasks and household tasks. Pt educated on proper muscle engagement on the lumbar extension exercise through relaxing legs and pushing shoulders back. Pt should feel muscle fatigue in the form of burning or ache in the low back, but this will subside within 5 minutes of done with the exercise. Auxillary Auxillary 11/05/2018 Abs Wgt Set 1 25 Abs Reps Set 1 20 Abs Wgt Set 2 - Abs Reps Set 2 - Glute Wgt Set 1 40 Glute Reps Set 1 20 Glute Wgt Set 2 - Glute Reps Set 2 - Rows Wgt Set 1 40 Rows Reps Set 1 20 Lats Wgt Set 1 40 Lats Reps Set 1 20 Other Quad 35# 20 hams 35# 20 HEP hook phys therapist for lats/rows, body mechanics Therapeutic Activities (3 min): Educated pt on body mechanics in the kitchen to prevent twisting at the waist. Patient has had body designer training before so could replicate turning hips towards the direction of movement and not twisting. Patient Education: Patient was instructed in specific review of patients progress and correlation of strength and function to increase their understanding of the benefits related to completing the [facility] Rehab program Short body designer review when moving in the kitchen. Patient responded well the education on body mechanics today. Assessment: ROM less on cervical extension today. Pt tolerated the treatment fine with a good effortand an effective muscle fatigue level to improve muscle strength around the cervical and lumbar spine. Patient will then have more success with performing duties around the house, work related tasks and ADL.s without discomfort. Goals: Short Term Goals (4-6 weeks): *1. Pt will sit/drive 10 min??with Sx <??or = to 3-4/10??(At Eval: 09/23) *2. Pt will stand??>3 min??with Sx <??or = to 3-4/10??(At Eval: 09/23) 3. Pt will??perform bed mobility (scooting, rolling, supine to sit etc.)??with moderate Sx 3-4/10 4. Pt will walk (with walker) ??>3 min with burning Sx <??or = to??3-10 in her feet 5. Pt will get dressed in the morning with??Sx < or = to??3-4/10 ?? [facility] Goals (>6 weeks): 1. Patient will be independent with home exercise program after discontinued from Physical Therapy. *2. Pt will sit/drive 20 min??with Sx <??or = to 1-2??(At Eval: 09/23) *3. Pt will stand??>10 min??with Sx <??or = to 1-04/26??(At Eval: 09/23) 4.??Pt will perform bed mobility (scooting, rolling, supine to sit etc.)??with minimal Sx 1-2 5. Pt will walk (with walker) >10 min with burning??Sx < or = to??1-2 in her feet 6. Pt will get dressed in the morning with??Sx < or = to??-04/26 Certification Dates: 10/15/18-01/13/19 ?? Precautions/Other Information: Follow up with MD:??After 8 visits, Directional Preference:??lumbar: flexion, cervical: neutral, Hx:??Diabetes, HTN, B TKA, central pain syndrome, cervical spondylosis and stenosis,??L-Ext??#100, C- Ext??#213, HEP:??unknown?10/19/18:??Patient used stool to get on/off G/H auxillary.? Recommendations/Communication: 60% cervical extension 70% lumbar extension Continue treatment per PTPOC. Total timed code min: 43 Total treatment time: 43 Khadijah Pan PTA 11/05/2018, 11:26 AM documented in this encounter Plan of Treatment Not on filedocumented as of this encounter Visit Diagnoses Diagnosis Mechanical low back pain - Primary Lumbago Cervical spine pain Cervicalgia documented in this encounter Care Teams Transportation Program Director Relationship Specialty Start Date End Date Thalia Barron PA-C PCP - General Physician Engineering Assistant 10/06/18 documented as of this encounter
--- OUTSIDE RECORDS SUMMARY | 2022-01-12 12:45 | XMS_ITS | Encounter Summary ---
:1955 Author Organization [facility] Address [address] [place] [address] Care Team Providers Name Role Phone Thalia [...] SPINE LOW BACK PAIN Thalia Barron, Pnbc [place] [address] [place] [address] [place] [address], [address] [place] [address] [place] [address] Phone: Fax: Referral ID Status Reason Start Date Expiration Date Visits Requ ested Visits Authorized [id number] Closed 10/06/2018 01/05/[phone] Encounter Details Date Type Department Care Team Description 11/02/2018 Therapy Physicians Neck and Sherin Nguyễn, [place] chanical low back pain (Primary Dx); Back Center Noman tyler PT Cervical spine pain [address] [facility], [address] [address] [place] [address] [place], [place] [id number] [phone] Social History Tobacco Use Types Packs/Day Years Used Date Smoking Tobacco: Never Alcohol Use Standard Drinks/Week Comments No 0 (1 standard drink = 0.6 oz pure alcoho l) Recovering alcoholic Sex Assigned at Date Recorded Not on file documented as of this encounter Progress Notes Sherin Nguyễn, PT - 11/02/2018 10:45 AM CDT 11/02/2018 Visit # 4 Protocol: Neck??(acute, disc, stenosis)??and Back (acute, disc, adv out as lesley)?? 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 Patient states, I played in the surf/water. Patient reports she did stretches on vacation. Cervical Cervical 11/02/2018 Set 1 Ext % Max 60% Set 1 Ext ROM 27-84 Set 1 Ext Wgt 90 Set 1 Ext Reps 25 Set 1 Ext Tul 138 Set 1 Ext Kevin RPE 5 Objective Tests & Measures: L-Ext 60%. C-Ext 60%. Tests performed today (see reviewflowsheet for score and outcomes): : None Performed Today Warm Up: Movement Specific Training: Not Completed Bike: Minutes 5 Intensity Level 3 ICE: Patient used ice on upper thoracic spine. Patient declined ice to low back and neck. Lumbar Lumbar & Torso 11/02/2018 Set 1 Ext % Max 60% Set 1 Ext ROM 6-33 Set 1 Ext Wgt 45 Set 1 Ext Reps 26 Set 1 Ext Tul 121 Set 1 Ext Kevin RPE 6 Therapeutic Exercise (28 min): Patient performed auxillary exercises to increase strength and endurance levels of supporting spinalmuscle groups to increase tolerance for sitting, standing, walking, sleeping, bed mobility, lifting,reading, driving, personal care tasks, household tasks and work activities with PT monitoring patient's technique for form and pace. Patient with good form and pace. With G/H, 1 VC to not hold onto machine with R UE and then patient with good technique. With Rows Auxillary, VC and demonstration to notflex/extend trunk and keep trunk in neutral and then patient with good technique. Neuromuscular Re-Education (15 min): Patient performed isolated lumbar extension and isolated cervical extension to retrain muscles for proper sequencing, improve muscle recruitment patterns and to improve movement patterns in an isolatedplane to increase tolerance for sitting, standing, walking, sleeping, bed mobility, lifting, reading, driving, personal care tasks and household tasks. with PT monitoring patient's technique for form and pace. Patient with good form and pace. Auxillary Auxillary 11/02/2018 Abs Wgt Set 1 25 Abs Reps Set 1 20 Abs Wgt Set 2 25 Abs Reps Set 2 20 Glute Wgt Set 1 40 Glute Reps Set 1 20 Glute Wgt Set 2 40 Glute Reps Set 2 20 Rows Wgt Set 1 40 Rows Reps Set 1 20 Lats Wgt Set 1 40 Lats Reps Set 1 20 Other Lats and Rows: Used B [place]. Abs: Small Block. Quads with Large Block x 35# x 10 reps and thendecreased to 25# x 10 reps. Hams with Large Block 35# x 20 reps. HEP - Therapeutic Activities (0 min): Not performed today. Patient Education: Educated patient in desired fatigue levels with Med-X Exercises. Informed patient that G/H machine strengthens Gluts and Hamstrings muscles. At end of treatment, PT and patient discussed that MD wants to see patient after 8 treatments and informed patient that today was visit #4; PT recommended that patient schedule 4 more PT treatments andMD follow up appointment with Dr. Calloway; patient understood and planned to schedule above appointments. Assessment: Patient did cardio warmup and then went to restroom from 10:57 am to 11:00 am; therefore, subtracted 3 minutes from total treatment time. While doing L-Ext 60%, patient reports she feels itin upper back between her shoulder blades. Patient tolerated C-Ext 60% well. Patient did Lats auxillary as first auxillary exercise, but only wanted to do 1 set at that time due to wrists; therefore, only did 1 set of Lats and then patient did 2 sets of Abs and G/H. PT then asked patient if she wantedto return to Lats machine to do a 2nd set but patient wanted to do Quads and Hams auxillary. With Quads Auxillary, patient did 10 reps at 35# and stated it was too hard; therefore decreased weight to 25# and patient then did 10 reps at 25# and wanted to stop. With Hams Auxillary, patient did 1 set of 20 reps and then declined doing a 2nd set. Patient then did Rows Auxillary and declined 2nd set. Patient gave good effort throughout treatment and tolerated treatment well. Goals: Short Term Goals (4-6 weeks): *1. Pt will sit/drive 10 min??with Sx <??or = to 3-4/10??(At Eval: 7/10) *2. Pt will stand??>3 min??with Sx <??or = to 3-4/10??(At Eval: 09/23) 3. Pt will??perform bed mobility (scooting, rolling, supine to sit etc.)??with moderate Sx 3-4/10 4. Pt will walk (with walker) ??>3 min with burning Sx <??or = to??3-4/10 in her feet 5. Pt will get dressed in the morning with??Sx < or = to??3-4/10 ?? Residential Goals (>6 weeks): 1. Patient will be independent with home exercise program after discontinued from Physical Therapy. *2. Pt will sit/drive 20 min??with Sx <??or = to 1-2/10??(At Eval: 09/23) *3. Pt will stand??>10 min??with Sx <??or = to 1-210??(At Eval: 09/23) 4.??Pt will perform bed mobility (scooting, rolling, supine to sit etc.)??with minimal Sx 1-2/10 5. Pt will walk (with walker) >10 min with burning??Sx < or = to??1-2/10 in her feet 6. Pt will get dressed in the morning with??Sx < or = to??1-2/10 Certification Dates: 10/15/18-01/13/19 ?? Precautions/Other Information: Follow up with :??After 8 visits, Directional Preference:??lumbar: flexion, cervical: neutral, Hx:??Diabetes, HTN, B TKA, central pain syndrome, cervical spondylosis and stenosis,??L-Ext??#100, C- Ext??#213, HEP:??unknown?10/19/18:??Patient used stool to get on/off G/H auxillary. Recommendations/Communication: Next Treatment: C-Ext 70% and L-Ext 60%. Total timed code min: 43 Total treatment time: 43 (Subtracted 3 minutes from total treatment time due to patient used restroom during treatment). Sherin Nguyễn, PT 11/02/2018, 12:06 PM documented in this encounter Plan of Treatment Not on filedocumented as of this encounter Visit Diagnoses Diagnosis Mechanical low back pain - Primary Lumbago Cervical spine pain Cervicalgia documented in this encounter Care Teams Industrial Health And Safety Professor Relationship Specialty Start Date End Date Thalia Barron PA-C PCP - General Physician Dolly Pusher 10/06/18 documented as of this encounter
--- OUTSIDE RECORDS SUMMARY | 2022-01-12 12:45 | XMS_ITS | Encounter Summary ---
:1955 Author Organization [facility] Address [address] [place] [address] Care Team Providers Name Role Phone Thalia Barron PA-C Primary Care Provider Unavailable Reason for Visit Reason Comments BACK PAIN, LOW LEG PAIN NECK PAIN ARM PAIN Consult/Transfer Care (Routine) - Closed Specialty Diagnoses / Procedures Referred By Contact Refer red To Contact Physical Therapy Diagnoses Other cervical disc degeneration, unspecified cervical region (HRC) Spinal stenosis, cervical region CERV PAIN STENOSIS OF SPINE LOW BACK PAIN Thalia Barron, [facility] [address] [facility], [address] [place] [address] [place] [address] Phone: Fax: Referral ID Status Reason Start Date Expiration Date Visits Requ ested Visits Authorized [id number] Closed 10/06/2018 01/05/[phone] Encounter Details Date Type Department Care Team Description 10/23/2018 Therapy Physicians Neck and Nehemiah Kothari M echanical low back pain (Primary Dx); Back Center Noman tyler PT Cervical spine pain [id number] [facility], [address] [place] [address] [place] [address] [phone] Social History Tobacco Use Types Packs/Day Years Used Date Smoking Tobacco: Never Alcohol Use Standard Drinks/Week Comments No 0 (1 standard drink = 0.6 oz pure alcoho l) Recovering alcoholic Sex Assigned at Date Recorded Not on file documented as of this encounter Progress Notes Nehemiah Kothari PT - 10/23/2018 10:45 AM CDT 10/23/2018 Visit # 3 Protocol: Neck??(acute, disc, stenosis)??and Back (acute, disc, adv out as lesley) Start: 10:50 End: 11:32 (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 Her neck and low back are sore as well. States she was just recently diagnosed with golfer's and tennis elbow. Had questions about her HEP. Cervical Cervical 10/23/2018 Set 1 Ext % Max 50% Set 1 Ext ROM 27-84 Set 1 Ext Wgt 75 Set 1 Ext Reps 20 Set 1 Ext Tul 127 Set 1 Ext Kevin RPE 4 Objective Tests & Measures: See flowsheet Tests performed today (see reviewflowsheet for score and outcomes): : None Performed Today Warm Up: Movement Specific Training: Completed Seated aerobics exercises ICE: Back Lumbar Lumbar & Torso 10/23/2018 Set 1 Ext % Max 50% Set 1 Ext ROM 3-33/6-33 Set 1 Ext Wgt 38 Set 1 Ext Reps 20 Set 1 Ext Tul 101 Set 1 Ext Kevin RPE 4 Therapeutic Exercise (24 min): Patient performed auxillary exercises to increase strength and endurance levels of supporting spinalmuscle groups to increase tolerance for sitting, walking, driving and personal care tasks Tactile and verbal cues to achieve proper body position and alignment prior to exercise. Verbal cuesfor proper pacing and form during exercise. Verbal cues to perform proper breathing pattern during exercise. Neuromuscular Re-Education (18 min): Patient performed isolated cervical extension and lumbar extension exercise to decrease substitutionpatterns present with chronic pain, improve muscle recruitment patterns, improve self-correction of posture and improve kinesio awareness, in order to increase tolerance for sitting, standing and driving. Verbal cues for proper pacing and form during exercise. Verbal cues to perform proper breathing pattern during exercise. Verbal cues to stop exercise when desired fatigue level reached for goal of exercise today. Auxillary Auxillary 10/23/2018 Abs Wgt Set 1 25 Abs Reps Set 1 22 Abs Wgt Set 2 - Abs Reps Set 2 - Glute Wgt Set 1 40 Glute Reps Set 1 22 Rows Wgt Set 1 40 Rows Reps Set 1 20 Lats Wgt Set 1 40 Lats Reps Set 1 20 Other Quads #35 20 reps, Hams #35 20 reps HEP Femoral nerve glide, standing hip abduction Therapeutic Activities ( min): Not performed today. Patient Education: To restrict ROM on all HEP exercises to within pain free range and discontinue specific ones as needed of unable to find pain free position, also to only do as many standing hip abductions as she can up to 10 repetitions. How there is often some minimal pain on the strengthening exercises but as long as it does not progress in intensity, it is not harmful. Once strength is built up it supports the area and becomes more tolerable. Pt verbalized and demo full understanding. Assessment: Pt continues to make objective weight gains and tolerating increased exercise intensity well with minimal increased right low back pain on G/H exercise and L buttock pain on hamstring curl exercise today. Pt experiencing low back pain with lumbar extension exercise as well, which improved with blocked ROM. Pt report of golfer's and tennis elbow diagnosis would explain her forearm pain. Goals: Short Term Goals (4-6 weeks): *1. Pt will sit/drive 10 min??with Sx <??or = to 3-4/10??(At Eval: 09/23) *2. Pt will stand??>3 min??with Sx <??or = to 3-4/10??(At Eval: 09/23) 3. Pt will??perform bed mobility (scooting, rolling, supine to sit etc.)??with moderate Sx 3-4/10 4. Pt will walk (with walker) ??>3 min with burning Sx < or = to??3-410 in her feet 5. Pt will get [...] the morning with??Sx < or = to??1-04/26 Certification Dates: 10/15/18-01/13/19 ?? Precautions/Other Information: Follow up with MD:??After 8 visits, Directional Preference:??lumbar: flexion, cervical: neutral, Hx:??Diabetes, HTN, B TKA, central pain syndrome, cervical spondylosis and stenosis,??L-Ext??#100, C- Ext??#213, HEP:??unknown 10/19/18: Patient used stool to get on/off G/H auxillary. Recommendations/Communication: (Higher exercise intensity was performed today than recommended on C-ext as it is still very sub-maximal per RPE) L-ext 60% at 6-33 ROM, C-ext 60%, 2 sets aux's as able Total timed code min: 42 Total treatment time: 42 Nehemiah Kothari, PT 10/23/2018, 11:59 AM documented in this encounter Plan of Treatment Not on filedocumented as of this encounter Visit Diagnoses Diagnosis Mechanical low back pain - Primary Lumbago Cervical spine pain Cervicalgia documented in this encounter Care Teams Tourist Agent Relationship Specialty Start Date End Date Thalia Barron PA-C PCP - General Physician Start Up Specialist 10/06/18 documented as of this encounter
--- OUTSIDE RECORDS SUMMARY | 2022-01-12 12:45 | XMS_ITS | Encounter Summary ---
:1955 Author Organization [employer] Address [address], [place] [address] Care Team Providers Name Role Phone Thalia Barron PA-C Primary Care Provider Unavailable Reason for Visit Reason Comments NECK PAIN PAT STATED NECK IN A LOT OF PAIN TODAY Encounter Details Date Type Department Care Team Description 01/26/2019 Telephone Physicians Neck and Nehemiah Kothari N NIKITA PAIN (PAT STATED Back Center [facility] e PT NECK IN A LOT OF PAIN [address] [facility] [address] [facility] [address] [place] [address] [place], [place] [id number] Social History Tobacco Use Types Packs/Day Years Used Date Smoking Tobacco: Never Alcohol Use Standard Drinks/Week Comments No 0 (1 standard drink = 0.6 oz pure alcoho l) Recovering alcoholic Sex Assigned at Date Recorded Not on file documented as of this encounter Nursing Notes Nehemiah Kothari PT - 01/26/2019 9:25 AM CST I spoke with the Pt and encouraged her to keep her appointment today to keep her neck from stiffening up further. Pt is going to see her chiropractor tomorrow as well. Exercises will be modified for pain control. Pt was in agreement. Logan Edward - 01/26/2019 7:51 AM CST PAT CALLED AND STATED IN A LOT OF PAIN AND WAS UNCERTAIN IF SHE SHOULD COME IN, I RECOMMENDED STILL COMING IN AND DECREASING WEIGHTS BUT SHE ALSO WANTED A PHYSICAL THERAPISTS OPINION. PLEASE ADVISE. PAT HAS APPT TODAY @ 3497. THANK YOU, Logan Thomson 01/26/2019, 7:55 AM ER ANALYST documented in this encounter Plan of Treatment Not on filedocumented as of this encounter Visit Diagnoses Not on filedocumented in this encounter Care Teams Museum Host/Hostess Relationship Specialty Start Date End Date Thalia Barron PA-C PCP - General Physician Medical Staff Manager 10/06/18 documented as of this encounter
--- OUTSIDE RECORDS SUMMARY | 2022-01-12 12:45 | XMS_ITS | Encounter Summary ---
:1955 Author Organization [facility] Address [address] [place] [address] Care Team Providers Name Role Phone Thalia Barron PA-C Primary Care Provider Unavailable Reason for Visit Reason Comments NECK PAIN BACK PAIN, LOW HIP PAIN Consult/Transfer Care (Routine) - Closed Specialty Diagnoses / Procedures Referred By Contact Refer red To Contact Physical Therapy Diagnoses Other cervical disc degeneration, unspecified cervical region (HRC) Spinal stenosis, cervical region CERV PAIN STENOSIS OF SPINE LOW BACK PAIN Thalia Barron, [facility] [address] [address] [facility], [address] [place] [address] [place] [address] Phone: Fax: Referral ID Status Reason Start Date Expiration Date Visits Requ ested Visits Authorized [id number] Closed 10/06/2018 01/05/[phone] Encounter Details Date Type Department Care Team Description 12/10/2018 Therapy Physicians Neck and Nehemiah Kothari M echanical low back pain (Primary Dx); [facility] Cervical spine pain [address] [facility], [address] [place] [address] [place] [address] [phone] Social History Tobacco Use Types Packs/Day Years Used Date Smoking Tobacco: Never Alcohol Use Standard Drinks/Week Comments No 0 (1 standard drink = 0.6 oz pure alcoho l) Recovering alcoholic Sex Assigned at Date Recorded Not on file documented as of this encounter Progress Notes Nehemiah Kothari PT - 12/10/2018 10:30 AM CDT 12/10/2018 Visit # 11 Protocol: Neck (Acute, Disc, Stenosis) and Back (Acute, Disc, adv out as lesley) Start: 10:30 End: 11:15 (TELECOMMUNICATION ENGINEER Visit # 0 Subjective: States two Christians approached her on Friday to pray for her pain in her low back, hips, and legs. She has noticed less pain since then. Cervical Cervical 12/10/2018 Set 1 Ext % Max - Set [...] Rot % Max 60% Left Rot ROM 42 Left Rot Wgt 22 Left Rot Reps 20 Left Rot Kevin RPE 4 Right Rot % Max 60% Right Rot ROM 42 Right Rot Wgt 22 Right Rot Reps 20 Right Rot Kevin RPE 4 Objective Tests & Measures: See flowsheet Tests performed today (see reviewflowsheet for score and outcomes): : None Performed Today Warm Up: Movement Specific Training: Completed Seated aerobics: 10 min ICE: Back Lumbar Lumbar & Torso 12/10/2018 Set 1 Ext % Max 90% Set 1 Ext ROM 3-42 Set 1 Ext Wgt 67 Set 1 Ext Reps 25 Set 1 Ext Tul 101 Set 1 Ext Kevin RPE 5-6 Set 2 Ext % Max 90% Set 2 Ext ROM 3-42 Set 2 Ext Wgt 67 Set 2 Ext Reps 20 Set 2 Ext Tul 85 Set 2 Kevin RPE 5-6 Left Rot % Max - Left Rot ROM - Left Rot Wgt - Left Rot Reps - Left Rot Philip RPE - Right Rot % Max - Right Rot ROM - Right Rot Wgt - Right Rot Reps - Right Rot Kevin RPE - Therapeutic Exercise (35 min): Patient performed isolated lumbar extension exercise and auxillary exercises to increase strength and endurance levels of supporting spinal muscle groups to increase tolerance for sitting, standing, walking, bed mobility and driving. Tactile and verbal cues to achieve proper body position and alignment prior to exercise. Verbal cuesfor proper pacing and form during exercise. Verbal cues to perform proper breathing pattern during exercise. Neuromuscular Re-Education (10 min): Patient performed isolated cervical rotation exercise to decrease substitution patterns present withchronic pain, improve muscle recruitment patterns, improve self-correction of posture and improve kinesio awareness, in order to increase tolerance for sitting, bed mobility and driving. Tactile and verbal cues to achieve proper body position and alignment prior to exercise. Verbal cuesfor proper pacing and form during exercise. Verbal cues to perform proper breathing pattern during exercise. Verbal cues to stop exercise when desired fatigue level reached for goal of exercise today. Auxillary Auxillary 12/10/2018 Abs Wgt Set 1 35 Abs Reps Set 1 20 Abs Wgt Set 2 35 Abs Reps Set 2 20 Glute Wgt Set 1 65 Glute Reps Set 1 20 Glute Wgt Set 2 - Glute Reps Set 2 - Rows Wgt Set 1 45 Rows Reps Set 1 25 Rows Wgt Set 2 - Rows Reps Set 2 - Lats Wgt Set 1 45 Lats Reps Set 1 25 Lats Wgt Set 2 - Lats Reps Set 2 - Other Quads #35 1x20, Hams #35 1x20 HEP AG cervical flex, ext and rotatons (10 reps each) Therapeutic Activities ( min): Not performed today. Patient Education: HEP instruct, however not to perform these isolated strengthening exercises on their own outside of therapy until completion of therapy. Pt verbalized full understanding. Assessment: Pt continues to make objective weight gains and tolerating increased exercise intensity well without increased Sx today. Pt refused increase of L-ext weight on second set. Pt continues to progress toward LTG#1 as they demo good pacing and control of anti-gravity cervical exercises, but will require further review to become independent. Supine rotation will not be performed for HEP as Pt had increased neck pain with it today. Goals: Short Term Goals (4-6 weeks): *1. Pt will sit/drive 10 min??with Sx <??or = to 3-4/10??(At Eval: 09/23) MET 12/01/18 *2. Pt will stand??>3 min??with Sx <??or = to 3-4/10??(At Eval: 09/23) 3. Pt will??perform bed mobility (scooting, rolling, supine to sit etc.)??with moderate Sx 3-4 Not met, can only sleep on her back. 12/01/18 4. Pt will walk (with walker) ??>3 min with burning Sx <??or = to??3-4/10 in her feet Not met 12/01/18 5. Pt will get dressed in the morning with??Sx < or = to??3-4/10 ?? Group Home Goals (>6 weeks): 1. Patient will be independent with home exercise program after discontinued from Physical Therapy.?Progressing 11/20/18 *2. Pt will sit/drive 20 min??with [...] only, No ANTI-GRAVITY CERVICAL rotation 12/10/18 Recommendations/Communication: (Exercises modified today from previous recommendation to get on protocol rotation and acute exercise intensity progression) (see prec/other info) Vj awllace review, C-ext 100%, T-roto 60% = #22 Total timed code min: 45 Total treatment time: 45 Nehemiah Kothari, PT 12/10/2018, 11:17 AM documented in this encounter Plan of Treatment Not on filedocumented as of this encounter Visit Diagnoses Diagnosis Mechanical low back pain - Primary Lumbago Cervical spine pain Cervicalgia documented in this encounter Care Teams Access Database Developer Relationship Specialty Start Date End Date Thalia Barron PA-C PCP - General Physician Farm General Manager 10/06/18 documented as of this encounter
--- OUTSIDE RECORDS SUMMARY | 2022-01-12 12:45 | XMS_ITS | Encounter Summary ---
:1955 [facility] Address [address] [place] [address] Care Team Providers Name Role Phone Thalia [...] OF SPINE LOW BACK PAIN Thalia Barron, [facility] [place] [address] [address] [facility], [address] [place] [address] [place] [address] Phone: Fax: Referral ID Status Reason Start Date Expiration Date Visits Requ ested Visits Authorized [id number] Closed 10/06/2018 01/05/[phone] Encounter Details Date Type Department Care Team Description 12/31/2018 Therapy Physicians Neck and Marimar Pan PTA Mechanical low back pain (Primary Dx); Back Center [facility] [address], Cervical spine pain [address] [facility], [address] [place] [address] [place] [address] [phone] Social History Tobacco Use Types Packs/Day Years Used Date Smoking Tobacco: Never Alcohol Use Standard Drinks/Week Comments No 0 (1 standard drink = 0.6 oz pure alcoho l) Recovering alcoholic Sex Assigned at Date Recorded Not on file documented as of this encounter Progress Notes Khadijah Pan PTA - 12/31/2018 11:15 AM CDT 12/31/2018 Visit # 16 Protocol: Neck (acute, disc, stenosis) Back (acute, disc, advance out as tolerated) Start: 11:20 am End: 12:00 pm (FUEL MANAGER Visit # 4 Subjective: Patient reports her body doesn't want to work well today. She continues to worry why thecold pack doesn't fit around her waist anymore. She states she doesn't feel like she is eating more/gaining wt. Patient has an MD follow up instead of her banking and finance instructor so she hopes that appt will get her a referral to the banking and finance instructor quicker. Patient states she did not do the hip flexor stretch but she plans to do it. Cervical Cervical 12/31/2018 Set 1 Ext % Max 100% Set 1 Ext ROM 27-78 Set 1 Ext Wgt 171 Set 1 Ext Reps 20 Set 1 Ext Tul 81 Set 1 Ext Kevin RPE 6/10 Set 2 Ext % Max Set 2 Ext ROM - Set 2 [...] Kevin RPE - Objective Tests & Measures: 5% wt increase on cervical extension 90% of max wt on torso rotation ROM changes: Tests performed today (see reviewflowsheet for score and outcomes): : None Performed Today Warm Up: Movement Specific Training: Not Completed Bike: Minutes 5 Intensity moderate ICE: Back and Neck Lumbar Lumbar & Torso 12/31/2018 Set 1 Ext % Max - Set [...] Kevin RPE - Left Rot % Max 90% Left Rot ROM 35 Left Rot Wgt 24 Left Rot Reps 10 Left Rot Philip RPE 5/10 Right Rot % Max 90% Right Rot ROM 35 Right Rot Wgt 24 Right Rot Reps 10 Right Rot Kevin RPE 5/10 Therapeutic Exercise ( 40min): Patient performed isolated torso rotation exercise, isolated [...] for sitting, standing, walking, bed mobility and dressing in the morning Pt required cues to lead up with [...] after cues and reminders of body position. Pt educated for proper form on aux. exercises to minimize compensatory movement patterns and reminded to keep a steady rep pace on aux. exercises to maximize strengthening along the entire movement. Neuromuscular Re-Education (0 min): None performed today. Auxillary Auxillary 12/31/2018 Abs Wgt Set 1 50 Abs Reps Set 1 20 Abs Wgt Set 2 - Abs Reps Set 2 - Glute Wgt Set 1 75 Glute Reps Set 1 20 Glute Wgt Set 2 - Glute Reps Set 2 - Rows Wgt Set 1 50 Rows Reps Set 1 20 Rows Wgt Set 2 - Rows Reps Set 2 - Lats Wgt Set 1 55 Lats Reps Set 1 20 Lats Wgt Set 2 - Lats Reps Set 2 - Other Quad 35# 20 Hams 40# 20 HEP - Therapeutic Activities (0 min): Not performed today. Patient Education: Patient was instructed in correlation of strength and function to increase their understanding of the benefits related to completing the [facility] Rehab program Assessment: Pt tolerated the treatment Ok with good effort and an effective muscle fatigue level to improve muscle strength around the cervical and lumbar spine. Patient will then have more success with performing functional duties around the house, work related tasks and ADL.s without discomfort. Patient has felt rose through her abdominal area this week. She does not have increased SOB and her pulse remains normal. Patient recommended to see her MD if she had more questions. Patient has better mobility now with getting on/off the aux exercises. She still uses her 4 wheel walker for ambulating on the rehab floor and community distances. Goals: Short Term Goals (4-6 weeks): ?? *1. Pt will sit/drive 10 min??with Sx <??or = to 3-4/10??(At Eval: 09/23)?MET 12/01/18 *2. Pt will stand??>3 min??with Sx <??or = to 3-4/10??(At Eval: 09/23) ??Still difficult standing more than a few min 12/28/18 3. Pt will??perform bed mobility (scooting, rolling, supine to sit etc.)??with moderate Sx 3-410?? Patient able to get into bed easy but out is worse but that is better 12/31/18 4. Pt will walk (with walker) ??>3 min with burning Sx <??or = to??3-410 in her feet ??Still difficult walking more than a few min 12/17/18 5. Pt will get dressed in the morning with??Sx < or = to??3-410??Been more sore over the last couple days 12/17/18 ?? Launch Operator Goals (>6 weeks): ?? 1. Patient [...] No ANTI-GRAVITY CERVICAL rotation 12/10/18 Recommendations/Communication: 100% lumbar extension 100% cervical rotation, Continue treatment per PT POC. HOME EXERCISE PROGRAM review either neck or seated lumbar extension Total timed code min: 40 Total treatment time: 40 Khadijah Pan PTA 12/31/2018, 7:39 PM Associated attestation - Nehemiah Kothari, PT - 01/01/2019 8:52 AM CDT Observed treatment. Goals/Plan of Care discussed with FUEL MANAGER. Treatment progressing and appropriate. Nehemiah Kothari, SANDRA 01/01/2019, 8:52 AM documented in this encounter Plan of Treatment Not on filedocumented as of this encounter Visit Diagnoses Diagnosis Mechanical low back pain - Primary Lumbago Cervical spine pain Cervicalgia documented in this encounter Care Teams Tank Farm Attendant Relationship Specialty Start Date End Date Thalia Barron PA-C PCP - General Physician Jeep Mechanic 10/06/18 documented as of this encounter
--- OUTSIDE RECORDS SUMMARY | 2022-01-12 12:45 | XMS_ITS | Encounter Summary ---
:1955 Author Organization [facility] Address [address] [place] [address] Care Team Providers Name Role Phone Thalia [...] SPINE LOW BACK PAIN Thalia Barron, [facility] [place] [address] [place] [address] [place] [address], [address] [place] [address] [place] [address] Phone: Fax: Referral ID Status Reason Start Date Expiration Date Visits Requ ested Visits Authorized [id number] Closed 10/06/2018 01/05/[phone] Encounter Details Date Type Department Care Team Description 11/09/2018 Therapy Physicians Neck and Sherin Nguyễn, Oh chanical low back pain (Primary Dx); Back Center [facility] tyler PT Cervical spine pain [address] [facility], [address] [address] [place] [address] [place], [place] [id number] [phone] Social History Tobacco Use Types Packs/Day Years Used Date Smoking Tobacco: Never Alcohol Use Standard Drinks/Week Comments No 0 (1 standard drink = 0.6 oz pure alcoho l) Recovering alcoholic Sex Assigned at Date Recorded Not on file documented as of this encounter Progress Notes Sherin Nguyễn, PT - 11/09/2018 10:45 AM CDT 11/09/2018 Visit # 6 Protocol: Neck (acute, disc, stenosis) and back (acute, disc and advance out as tolerated) Start: 10:47 am End: 11:32 am (TRUMPET PLAYER Visit # 1 Subjective: Patient states her neck and back are feeling pretty good today. Cervical Cervical 11/09/2018 Set 1 Ext % Max 60% Set 1 Ext ROM 27-78 Set 1 Ext Wgt 90 Set 1 Ext Reps 25 Set 1 Ext Tul 149 Set 1 Ext Kevin RPE 5 Set 2 Ext % Max - Set 2 Ext ROM - Set 2 Ext Wgt - Set 2 Ext Reps - Set 2 Ext Tul - Set 2 Ext Kevin RPE - Objective Tests & Measures: C-Ext 60%. L-Ext 70%. Tests performed today (see reviewflowsheet for score and outcomes): : None Performed Today Warm Up: Movement Specific Training: Not Completed Patient did Seated Chair Dancing for Cardio warmup for 18 minutes total with HR = 126 average bpm per her Iphone. ICE: Back. Patient declined ice to neck. Lumbar Lumbar & Torso 11/09/2018 Set 1 Ext % Max 70% Set 1 Ext ROM 6-33 Set 1 Ext Wgt 46 Set 1 Ext Reps 20 Set 1 Ext Tul 136 Set 1 Ext Kevin RPE 5 Set 2 Ext % Max 70% Set 2 Ext ROM 6-33 Set 2 Ext Wgt 46 Set 2 Ext Reps 20 Set 2 Ext Tul 131 Set 2 Kevin RPE 5 Therapeutic Exercise (33 min): Patient performed isolated lumbar extension exercise and auxillary exercises to improve muscle strength, to improve muscle endurance and increase strength and endurance levels of supporting spinal muscle groups to increase tolerance for sitting, standing, walking, sleeping, bed mobility, lifting, reading, driving, personal care tasks, household tasks and work activities with PT monitoring patient's technique for form and pace. Patient with good form and pace. Neuromuscular Re-Education (11 min): Patient performed isolated cervical extension exercise to improve movement patterns and re-educate muscles with PT monitoring patient's technique for form and pace. Patient with good form and pace. AG Neck HEP: Patient instructed in Seated Neck Extension with B Forearms supported on thighs x 10 reps and Supine Neck Flex x 10 reps. PT explained that AG Neck HEP is recommended to do at time of D/C from PT 2x/week to fatigue to maintain neck strength; patient understood. Auxillary Auxillary 11/09/2018 Abs Wgt Set 1 25 Abs Reps Set 1 25 Abs Wgt Set 2 - Abs Reps Set 2 - Glute Wgt Set 1 40 Glute Reps Set 1 - Glute Wgt Set 2 - Glute Reps Set 2 - Rows Wgt Set 1 40 Rows Reps Set 1 20 Lats Wgt Set 1 40 Lats Reps Set 1 20 Other Rows and Lats: Used [employer]. No time for Quads and Hams today due to HEP instruction. HEP AG Neck HEP: Seated Neck Extension and Supine Neck Flexion. Therapeutic Activities (1 min): Therapeutic Activities 11/09/2018 SITTING POSTURE - STANDING POSTURE - WEIGHT SHIFT - OTHER ACTIVITY Bed Mobility: Instructed patient in AG Neck HEP - see NMR section for details; Patient wanted to use high gym plinth (not low one) for AG Neck Supine Neck Flexion; when patient was goingfrom supine to sit on plinth, patient requested assistance from PT to get up; PT instructed patient to roll onto left side and then assisted patient to sit up fromleft sidelying to sit x min A. Patient Education: Patient asked when she would be able to stand for any length of time without having a lot of low back pain; PT explained that PT doesn't know if and when this will happen; PT explained that goal of treatments is to increase Neck, Low Back, and supporting muscle strength to hopefully decrease pain and improve function. Patient asked how do therapists know when to increase weight or not on Med-X exercises. PT explainedPOC with submax and max workouts with Med-X exercises that alternate each treatment between a submaxand max workout with Med-X exercises; patient understood. Assessment: Patient wearing B wrist/thumb splints today. Patient uses 4WW for ambulation. Patient tolerated all exercises well. Instructed patient in AG Neck HEP - see NMR section for details; Patient wanted to use high gym plinth (not low one) for AG Neck Supine Neck Flexion; when patient was going from supine to sit on plinth, patient requested assistance from PT to get up; PT instructed patient toroll onto left side and then assisted patient to sit up from left sidelying to sit x min A. Patient gave good effort throughout treatment and [...] morning with??Sx < or = to??3-4/10 ?? Sumo Wrestler Goals (>6 weeks): 1. Patient will be [...] stool to get on/off G/H auxillary.? Recommendations/Communication: Next Treatment: C-Ext 80% and L-Ext 60%. Increase Abs 5 pounds. Increase G/H 5 pounds. No time for Quads and Hams today due to HEP instruction - resume next treatment. Review STGs. Total timed code min: 45 Total treatment time: 45 Sherin Nguyễn, PT 11/09/2018, 12:03 PM documented in this encounter Plan of Treatment Not on filedocumented as of this encounter Visit Diagnoses Diagnosis Mechanical low back pain - Primary Lumbago Cervical spine pain Cervicalgia documented in this encounter Care Teams Firer Bisque Kiln Relationship Specialty Start Date End Date Thalia Barron PA-C PCP - General Physician It Security Specialist 10/06/18 documented as of this encounter
--- OUTSIDE RECORDS SUMMARY | 2022-01-12 12:45 | XMS_ITS | Encounter Summary ---
:1955 Author Organization [facility] Address [address] [address] Care Team Providers Name Role Phone Thalia Barron PA-C Primary Care Provider Unavailable Reason for Visit Reason Comments No Show Encounter Details Date Type Department Care Team Description 12/04/2018 Telephone Physicians Neck and Back Sherin Rasmussen, PT No Show [facility] [address] [facility] [address] [place] [address] [address] [place] [id number] [phone] Social History Tobacco Use Types Packs/Day Years Used Date Smoking Tobacco: Never Alcohol Use Standard Drinks/Week Comments No 0 (1 standard drink = 0.6 oz pure alcoho l) Recovering alcoholic Sex Assigned at Date Recorded Not on file documented as of this encounter Nursing Notes Sherin Nguyễn, PT - 12/04/2018 10:45 AM CDT Patient No-Showed for scheduled 10:00 am PT appointment today. PT called and spoke with patient at 10:42 am and patient stated she realized that she missed the appointment and apologized. PT asked patient if she wanted to re-schedule for later today but patient stated that she will plan to come to hernext appointment. PT reminded patient that her next appointment is on 12/07/18 at 10:30 am. Sherin Nguyễn, PT 12/04/2018, 10:46 AM documented in this encounter Plan of Treatment Not on filedocumented as of this encounter Visit Diagnoses Not on filedocumented in this encounter Care Teams Lithographic Platemaker Relationship Specialty Start Date End Date Thalia Barron PA-C PCP - General Physician Squeegee Finisher 10/06/18 documented as of this encounter
--- OUTSIDE RECORDS SUMMARY | 2022-01-12 12:45 | XMS_ITS | Encounter Summary ---
:1955 Author Organization [facility] Address [address] [place] [address] Care Team Providers Name Role Phone Denise Harris MD Primary Care Provider Encounter Details Date Type Department Care Team Description 06/02/2009 Office Visit [facility] Joshua Pires MD [address] [place], [place] [address] [place] [address] [phone] (Wo rk) Social History Tobacco Use Types Packs/Day Years Used Date Smoking Tobacco: Former Alcohol Use Standard Drinks/Week Comments No 0 (1 standard drink = 0.6 oz pure alcoho l) Recovering alcoholic Sex Assigned at Date Recorded Not on file documented as of this encounter Progress Notes Joshua Zaidi MD - 06/02/2009 12:01 AM CDT Progress Notes signed by Joshua Zaidi MD at 06/29/09 1523 Author: Joshua Zaidi MD Service: (none) Author Type: Physician Filed: 07/07/102101 Note Time: 06/02/09 0001 Status: Signed Concrete Paving Supervisor: Joshua Zaidi MD (Physician) NAME: FANTA COUGHLIN VISIT: [id number] DICTATING CLINICIAN: JOSHUA ZAIDI MD JOB: [id number] LOC: 3422 CLINIC PROGRESS NOTE DATE OF VISIT: 06/02/2009 HISTORY: Fanta is a 54-year-old who is coming in today for a postop visit. She underwent a left total knee arthroplasty on 04/25/2009. She is now 6 weeks out from surgery. Her postop rehab has been complicated by a pulmonary embolism. She is currently on Coumadin, monitored by her family practice doctor. She has been attending physical therapy and is making continued progress with her range of motion. Fanta notes the knee is coming along but it is still uncomfortable after prolonged activities. She denies any locking or catching. No giving way. She has had no signs of infection. PHYSICAL EXAMINATION: On physical examination, Fanta is a very alert, cooperative woman in no apparent distress. She is ambulating with a slight antalgic gait. Range of motion is 0 to 125 degrees of flexion. She is stable to varus and valgus stress. She is starting to regain her soft tissue landmarks about the left knee. Her incision is well healed. She is otherwise neurovascularly intact. ASSESSMENT: Left total knee arthroplasty on 04/25/2009; six weeks. PLAN: 1. Fanta will continue to work on her range of motion and strengthening exercises. 2. She will continue on her Coumadin as directed by her family practice doctor. 3. Followup in 6 weeks time. Should she have any other questions or concerns prior to that time, she is encouraged to call clinic. DOCUMENT: [id number] documented in this encounter Plan of Treatment Not on filedocumented as of this encounter Visit Diagnoses Not on filedocumented in this encounter Care Teams Loan Administrator Relationship Specialty Start Date End Date Denise Harris MD PCP - General 06/17/10 10/05/[address] [place] [address] documented as of this encounter
--- OUTSIDE RECORDS SUMMARY | 2022-01-12 12:45 | XMS_ITS | Encounter Summary ---
:1955 Author [facility] Address [address], [place] [address] Care Team Providers Name Role Phone Thalia Barron PA-C Primary Care Provider Unavailable Reason for Visit Reason Comments BACK PAIN, LOW Lost HEP access code Encounter Details Date Type Department Care Team Description 10/21/2018 Telephone Physicians Neck and Nehemiah Kothari B ACK PAIN, LOW (Lost Back Center [place] PT HEP access code) [address] [facility], [address] [facility] [address] [place] [address] [place] [address] [phone] Social History Tobacco Use Types Packs/Day Years Used Date Smoking Tobacco: Never Alcohol Use Standard Drinks/Week Comments No 0 (1 standard drink = 0.6 oz pure alcoho l) Recovering alcoholic Sex Assigned at Date Recorded Not on file documented as of this encounter Nursing Notes Nehemiah Kothari PT - 10/21/2018 7:54 AM CDT Spoke to Pt and provided her with her HEP access code to be able to get them online. Pt has been doing her exercises, states they have been going well, and that she is with the program. documented in this encounter Plan of Treatment Not on filedocumented as of this encounter Visit Diagnoses Not on filedocumented in this encounter Care Teams Carnallite Plant Operator Relationship Specialty Start Date End Date Thalia Barron PA-C PCP - General Physician Brown Sourer 10/06/18 documented as of this encounter
--- OUTSIDE RECORDS SUMMARY | 2022-01-12 12:45 | XMS_ITS | Encounter Summary ---
:1955 [facility] Address [address] [place] [address] Care Team Providers Name Role Phone Thalia [...] OF SPINE LOW BACK PAIN Thalia Barron, [facility] [place] [address] [address] [facility], [address] [place] [address] [place] [address] Phone: Fax: Referral ID Status Reason Start Date Expiration Date Visits Requ ested Visits Authorized [id number] Closed 10/06/2018 01/05/[phone] Encounter Details Date Type Department Care Team Description 12/28/2018 Therapy Physicians Neck and Marimar Pan PTA Mechanical low back pain (Primary Dx); Back Center [facility] [address] [address], Cervical spine pain [address] [facility], [address] [place] [address] [place] [address] [phone] Social History Tobacco Use Types Packs/Day Years Used Date Smoking Tobacco: Never Alcohol Use Standard Drinks/Week Comments No 0 (1 standard drink = 0.6 oz pure alcoho l) Recovering alcoholic Sex Assigned at Date Recorded Not on file documented as of this encounter Progress Notes Khadijah Pan PTA - 12/28/2018 11:15 AM CDT 12/28/2018 Visit # 15 Protocol: Neck (acute, disc, stenosis) Back (acute, disc, adv. Out as tolerated) Start: 11:20 am End: 12:08 pm (RESEARCH PROGRAM INTERN Visit # 3 Subjective: Patient reports her heard rate was high today when doing her cardio workout and it didn't really drop with stopping exercise. PATIENT states she didn't feel ill or anything like that but her HR didn't drop like normal. She actually feels pretty good today. Cervical Cervical 12/28/2018 Set 1 Ext % Max - Set [...] Kevin RPE - Left Rot % Max 80% Left Rot ROM 42 Left Rot Wgt 28 Left Rot Reps 10 Left Rot Kevin RPE 3/10 Right Rot % Max 80% Right Rot ROM 42 Right Rot Wgt 28 Right Rot Reps 10 Right Rot Kevin RPE 3/10 Objective Tests & Measures: 80% of max on cervical rotation 10% wt increase on lumbar extension ROM changes: decrease in lumbar extension ROM on 1st set from 3-39 to 3-36, but improved to normal range on the 2nd set. Tests performed today (see [facility] for score and outcomes): : None Performed Today Warm Up: Movement Specific Training: Not Completed none today ICE: Back and Neck Lumbar Lumbar & Torso 12/28/2018 Set 1 Ext % Max 100% Set 1 Ext ROM 3-36 Set 1 Ext Wgt 73 Set 1 Ext Reps 20 Set 1 Ext Tul 126 Set 1 Ext Kevin RPE 6/10 Set 2 Ext % Max 100% Set 2 Ext ROM 3-39 Set 2 Ext Wgt 73 Set 2 Ext Reps 20 Set 2 Ext Tul 177 Set 2 Kevin RPE 6/10 Left Rot % Max - Left Rot ROM - Left Rot Wgt - Left Rot Reps - Left Rot Philip RPE - Right Rot % Max - Right Rot ROM - Right Rot Wgt - Right Rot Reps - Right Rot Kevin RPE - Therapeutic Exercise (30 min): Patient performed isolated lumbar extension exercise, [...] compensation of the incorrect muscles. Neuromuscular Re-Education (18 min): Patient performed seated lumbar extension exercises to decrease substitution patterns present with chronic pain, to retrain muscles for proper sequencing, decrease substitution patterns and normalize movement patterns and to improve self-correction of posture to increase tolerance for sitting, standing, walking, sleeping, bed mobility, lifting, reading, driving, personal care tasks and household tasks. Patient instructed in seated lumbar extension exercise using the blue t-band and handles. Patient able to do 15 reps and 10/15 were good form. Patient will need more review in order to be effective at home for strength maintenance of the lumbar extensor muscles. Instructed in standing hip flexor stretch today. Patient did well with the instruction and had a very good stretch on the appropriate area. Recommend daily stretching. Auxillary Auxillary 12/28/2018 Abs Wgt Set 1 50 Abs Reps Set 1 20 Abs Wgt Set 2 50 Abs Reps Set 2 - Glute Wgt Set 1 70 Glute Reps Set 1 20 Glute Wgt Set 2 - Glute Reps Set 2 - Rows Wgt Set 1 50 Rows Reps Set 1 20 Rows Wgt Set 2 - Rows Reps Set 2 - Lats Wgt Set 1 50 Lats Reps Set 1 - Lats Wgt Set 2 - Lats Reps Set 2 - Other Quads 35# 20 Hams 40# HEP seated lumbar extension with tubing. Therapeutic Activities (0 min): Not performed today. Patient Education: Patient was instructed in specific review of patients progress and correlation of strength and function to increase their understanding of the benefits related to completing the [facility] Rehab program Seated lumbar extension assembly instructions writer. See above. Patient responded well the education on Hep for lumbar extensors today. Also instructed in standing hip flexor stretch which pt states had a lot of pull on the anterior hiparea. Patient will start doing these as this would help with easing pressure on the back d/t tightness on the front of the hips. Assessment: ROM: lumbar extension ROM changed on 1st set, but returned to normal ROM on 2nd. Pt tolerated the treatment fine with a good effort and an effective muscle fatigue level to improve muscle strength around the cervical and lumbar spine. Patient will then have more success with performing duties around the house, work related tasks and ADL.s without discomfort. Patient was having reported elevated HR for longer than normal time frame. She usually reduces back to 74 which is average. (was 156 bpm per fit bit) Goals: Short Term Goals (4-6 weeks): *1. Pt will sit/drive 10 min??with Sx <??or = to 3-06/24??(At Eval: 09/23)?MET 12/01/18 *2. Pt will stand??>3 min??with Sx <??or = to 3-10??(At Eval: 09/23) ??Still difficult standing more than a few min 12/28/18 3. Pt will??perform bed mobility (scooting, rolling, supine to sit etc.)??with moderate Sx 3-4?Cannot tell if it has improved getting out of bed??12/17/18 4. Pt will walk (with walker) ??>3 min with burning Sx <??or = to??3-410 in her feet ??Still difficult walking more than a few min 12/17/18 5. Pt will get dressed in the morning with??Sx < or = to??3-410??Been more sore over the last couple days 12/17/18 ?? Half-Way Goals (>6 weeks): 1. Patient will be [...] >10 min with burning??Sx < or = to??-04/26 in her feet 6. Pt will get [...] CERVICAL rotation 12/10/18 Recommendations/Communication: 100% cervical extension 90% torso rotation Continue treatment per PT POC. Recheck how the standing hip flexor is going. Total timed code min: 48 Total treatment time: 48 Khadijah Pan PTA 12/28/2018, 12:23 PM documented in this encounter Plan of Treatment Not on filedocumented as of this encounter Visit Diagnoses Diagnosis Mechanical low back pain - Primary Lumbago Cervical spine pain Cervicalgia documented in this encounter Care Teams Furnace Loader Relationship Specialty Start Date End Date Thalia Barron PA-C PCP - General Physician Sling Operator 10/06/18 documented as of this encounter
--- OUTSIDE RECORDS SUMMARY | 2022-01-12 12:45 | XMS_ITS | Encounter Summary ---
:1955 Author Organization [facility] Address [address] [place] [address] Care Team Providers Name Role Phone Thalia [...] OF SPINE LOW BACK PAIN Thalia Barron, [facility] [place] [address] [place] [address] [facility], [address] [place] [address] [place] [address] Phone: Fax: Referral ID Status Reason Start Date Expiration Date Visits Requ ested Visits Authorized [id number] Closed 10/06/2018 01/05/[phone] Encounter Details Date Type Department Care Team Description 11/25/2018 Therapy Physicians Neck and Marimar Pan PTA Mechanical low back pain (Primary Dx); Back Center [facility] [address] [address], Cervical spine pain [address] [facility], [address] [place] [address] [place] [address] [phone] Social History Tobacco Use Types Packs/Day Years Used Date Smoking Tobacco: Never Alcohol Use Standard Drinks/Week Comments No 0 (1 standard drink = 0.6 oz pure alcoho l) Recovering alcoholic Sex Assigned at Date Recorded Not on file documented as of this encounter Progress Notes Khadijah Pan PTA - 11/25/2018 2:30 PM CDT 11/25/2018 Visit # 9 Protocol: Neck (acute, disc and stenosis) and back (acute, disc and advance out as tolerated) Start: 2:30 pm End: 3:16 pm (STAFF APPRAISER Visit # 3 Subjective: Patient continues to get very fatigued after session with mixed pain depending on which exercise is performed. Cervical Cervical 11/25/2018 Set 1 Ext % Max 90% Set 1 Ext ROM 27-78 Set 1 Ext Wgt 132 Set 1 Ext Reps 20 Set 1 Ext Tul 88 Set 1 Ext Kevin RPE 5/10 Set 2 Ext % Max 90% Set 2 Ext ROM 27-85 Set 2 Ext Wgt 132 Set 2 Ext Reps 25 Set 2 Ext Tul 109 Set 2 Ext Kevin RPE 5/10 Objective Tests & Measures: Start torso rotation 10% wt increase on cervical extension ROM changes: same Tests performed today (see reviewflowsheet for score and outcomes): : None Performed Today Warm Up: Movement Specific Training: Not Completed Bike: Minutes 5 Intensity Level 4 ICE: Neck Lumbar Lumbar & Torso 11/25/2018 Set 1 Ext % Max - Set [...] Left Rot Wgt 20 Left Rot Reps 10 Left Rot Philip RPE 6/10 Right Rot % Max 60% Right Rot ROM 35 Right Rot Wgt 20 Right Rot Reps 10 Right Rot Kevin RPE 6/10 Therapeutic Exercise (28 min): Patient performed isolated cervical extension exercise and auxillary exercises to improve muscle strength, to improve muscle endurance, to improve muscle flexibility, to improve range of motion, to increase strength for seated posture, to increase strength for standing posture, to provide postural and scapular stability, increase strength and endurance levels of supporting spinal muscle groups and tostrengthen postural muscles to decrease stresses on the spine to increase tolerance for sitting, standing, walking, sleeping, bed mobility, lifting, reading, driving, personal care tasks and household tasks Pt required cues to lead up with chin or look up towards the ceiling to effectively engage cervical extensor muscles and avoid compensation with upper trapezius bilateral. Pt educated for proper form on aux. exercises to minimize compensatory movement patterns and reminded to keep a steady rep pace on aux. exercises to maximize strengthening along the entire movement. Neuromuscular Re-Education (18 min): Patient performed isolated torso rotation to decrease substitution patterns present with chronic pain, to retrain muscles for proper sequencing and to improve coordination and movement quality to increase tolerance for sitting, standing, walking, sleeping, bed mobility, lifting, reading, driving, personal care tasks, household tasks and work activities. Pt educated on proper form on torso rotation exercise with emphasis to keep spine in the middle of the machine to avoid substitutions and engage the oblique muscles fully. Pt able to do after cues and reminders of body position. Auxillary Auxillary 11/25/2018 Abs Wgt Set 1 30 Abs Reps Set 1 20 Abs Wgt Set 2 35 Abs Reps Set 2 20 Glute Wgt Set 1 60 Glute Reps Set 1 20 Glute Wgt Set 2 - Glute Reps Set 2 Rows Wgt Set 1 45 Rows Reps Set 1 25 hurts neck Rows Reps Set 2 - Lats Wgt Set 1 45 Lats Reps Set 1 20 Lats Reps Set 2 - Other QUad 35# 20 Hams 35# 20, 20 HEP - Therapeutic Activities (0 min): Not performed today. Patient Education: Patient was instructed in correlation of strength and function to increase their understanding of the benefits related to completing the [facility] Rehab program Assessment: Pt tolerated the treatment fine with good effort and an effective muscle fatigue level to improve muscle strength around the cervical and lumbar spine. Patient will then have more success with performing functional duties around the house, work related tasks and ADL.s without discomfort. Patient had discomfort in her neck with rows today. Goals: Short Term Goals (4-6 weeks): [...] in the morning with??Sx < or = to??3-410 ?? Integrity Analyst Goals (>6 weeks): 1. Patient will be independent with home exercise program after discontinued from Physical Therapy. Progressing 11/20/18 *2. Pt will sit/drive 20 min??with Sx <??or = to 1-2/10??(At Eval: 09/23) *3. Pt will stand??>10 min??with Sx <??or = to 1-210??(At Eval: 09/23) 4.??Pt will perform bed mobility (scooting, rolling, supine to sit etc.)??with minimal Sx 1-210 5. Pt will walk (with walker) >10 min with burning??Sx < or = to??1-210 in her feet 6. Pt will get dressed in the morning with??Sx < or = to??1-210 Certification Dates: 10/15/18-01/13/19 ?? Precautions/Other Information: Follow up with MD:??After 8 visits, Directional Preference:??lumbar: flexion, cervical: neutral, Hx:??Diabetes, HTN, B TKA, central pain syndrome, cervical spondylosis and stenosis,??L-Ext??#100, C- Ext??#213, HEP:??unknown?10/19/18:??Patient used stool to get on/off G/H auxillary.??C-Ext ROM: 27-78 only Recommendations/Communication: 100% lumbar extension 60% cervical education, Continue treatment per PT POC. 10th visit, LENCHO/NDI Total timed code min: 46 Total treatment time: 46 Khadijah Pan PTA 11/25/2018, 3:27 PM documented in this encounter Plan of Treatment Not on filedocumented as of this encounter Visit Diagnoses Diagnosis Mechanical low back pain - Primary Lumbago Cervical spine pain Cervicalgia documented in this encounter Care Teams Pet Caregiver Relationship Specialty Start Date End Date Thalia Barron PA-C PCP - General Physician Strip Tank Tender 10/06/18 documented as of this encounter
--- OUTSIDE RECORDS SUMMARY | 2022-01-12 12:45 | XMS_ITS | Encounter Summary ---
:1955 Author Organization [facility] Address [address] [place] [address] Care Team Providers Name Role Phone Thalia [...] OF SPINE LOW BACK PAIN Thalia Barron, [facility] [place] [address] [place] [address], [address] [place] [address] [place] [address] Phone: Fax: Referral ID Status Reason Start Date Expiration Date Visits Requ ested Visits Authorized [id number] Closed 10/06/2018 01/05/[phone] Encounter Details Date Type Department Care Team Description 12/01/2018 Therapy Physicians Neck and Bubba Kwong, [facility] hanical low back pain (Primary Dx); Back Center [facility] jayson [facility] Cervical spine pain [address] [facility], [address] [facility] , [address] [place] [address] [place] [address] [phone] (Wo rk) Social History Tobacco Use Types Packs/Day Years Used Date Smoking Tobacco: Never Alcohol Use Standard Drinks/Week Comments No 0 (1 standard drink = 0.6 oz pure alcoho l) Recovering alcoholic Sex Assigned at Date Recorded Not on file documented as of this encounter Progress Notes Bubba Kwong PTA - 12/01/2018 11:15 AM CDT 12/01/2018 Visit # 10 Protocol: Neck (acute, disc and stenosis) and back (acute, disc and advance out as tolerated) Start: 1109a End: 1202p (DIDACTIC PROGRAM IN DIETETICS DIRECTOR Visit # 4 Subjective: Pt reports neuropathy is really bad in feet today. Low back pain is worse with walking and standing. Yesterday was able to get 20 minutes in her dancing (while sitting) routine. Does 4 times per week. Cervical Cervical 12/01/2018 Set 1 Ext % Max 60% Set 1 Ext ROM 27-78 Set 1 Ext Wgt 99 Set 1 Ext Reps 30 Set 1 Ext Tul 146 Set 1 Ext Kevin RPE 3 Set 2 Ext % Max - Set 2 Ext ROM - Set 2 Ext Wgt - Set 2 Ext Reps - Set 2 Ext Tul - Set 2 Ext Kevin RPE - Objective Tests & Measures: Tests performed today (see reviewfloweet for score and outcomes): : Oswestry and Neck Disability Index Oswestry completed today at 47 % compared to 48 % on initial visit. NDI completed today at 38 % compared to 44.44 % on initial visit. Warm Up: Movement Specific Training: Not Completed Bike: Minutes 5 Intensity moderate ICE: Neck and left shoulder Lumbar Lumbar & Torso 12/01/2018 Set 1 Ext % Max - Set [...] Rot % Max 80% Left Rot ROM 35 Left Rot Wgt 22 Left Rot Reps 15 Left Rot Philip RPE pain left shoulder Right Rot % Max 80% Right Rot ROM 35 Right Rot Wgt 22 Right Rot Reps 20 Right Rot Kevin RPE collar bone Therapeutic Exercise (35 min): Patient performed isolated torso rotation exercise and auxillary exercises to improve muscle strength, to improve muscle endurance, increase strength and endurance levels of supporting spinal muscle groups and to strengthen postural muscles to decrease stresses on the spine to increase tolerance for sitting, standing, walking, sleeping, driving, personal care tasks and household tasks Verbal cues for proper form and control on Thoracic Rotation with instruction on which shoulder to push with to avoid substitution on the wrong side of muscle groups. Instructed in slow reps to avoid momentum and improper form. Neuromuscular Re-Education (10 min): Patient performed isolated cervical extension to decrease substitution patterns present with chronicpain, to retrain muscles for proper sequencing and improve muscle recruitment patterns to increase tolerance for sitting, standing, walking, sleeping, driving, personal care tasks and household tasks. Verbal cues instructed in proper form and control on Cervical Extension machine to avoid substitution and momentum. Auxillary Auxillary 12/01/2018 Abs Wgt Set 1 35 Abs Reps Set 1 20 Abs Wgt Set 2 35 Abs Reps Set 2 20 Glute Wgt Set 1 60 Glute Reps Set 1 20 Glute Wgt Set 2 60 Glute Reps Set 2 20 Rows Wgt Set 1 45 Rows Reps Set 1 20 Rows Wgt Set 2 45 Rows Reps Set 2 20 Lats Wgt Set 1 45 Lats Reps Set 1 20 Lats Wgt Set 2 45 Lats Reps Set 2 20 Other Quads 35# x20, x12 Hams 35# 2x20 HEP LENCHO and NDI completed Therapeutic Activities (8 min): Therapeutic Activities 12/01/2018 SITTING POSTURE - STANDING POSTURE Needs further training WEIGHT SHIFT - CORE EDUCATION Needs further training OTHER ACTIVITY Standing and walking posture reviewed with more upright form and control. Walked in clinic from machine to machine with good upright position. Cues on tight abdominals, arching back in upright stance. Patient Education: Patient was instructed in correlation of strength and function to increase their understanding of the benefits related to completing the [facility] Rehab program Therapeutic activities with standing and walking posture. See above. Assessment: Yaz Multani tolerated treatment well with workout, worked thorough machines well. Should improve as she gets stronger with less pain and more flexible with stretches. Observed form and speed on all reps to avoid substitution, proper positioning and cues on form and speed as needed. Gives good effort in machines. Able to do more reps on auxiliary machines today. Goals: Short Term Goals (4-6 weeks): *1. Pt will sit/drive 10 min??with Sx <??or = to 3-4/10??(At Eval: 09/23) MET 12/01/18 *2. Pt will stand??>3 min??with Sx <??or = to 3-4/10??(At Eval: 09/23) 3. Pt will??perform bed mobility (scooting, rolling, supine to sit etc.)??with moderate Sx 3-4/10 Not met, can only sleep on her back. 12/01/18 4. Pt will walk (with walker) ??>3 min with burning Sx <??or = to??3-4/10 in her feet Not met 12/01/18 5. Pt will get dressed in the morning with??Sx < or = to??3-4/10 ?? Building Manager Goals (>6 weeks): 1. Patient will be [...] G/H auxillary.??C-Ext ROM: 27-78 only Recommendations/Communication: 100% cervical extension and 90% lumbar extension . Continue treatmentper PT POC. Inadvertently gave thoracic rotation today instead of lumbar extension. Total timed code min: 53 Total treatment time: 53 Bubba Kwong, ZACHERY 12/01/2018, 12:52 PM Associated attestation - Sherin Nguyễn, PT - 12/01/2018 1:41 PM CDT Observed treatment. Goals/Plan of Care discussed with DIDACTIC PROGRAM IN DIETETICS DIRECTOR. Treatment progressing and appropriate. Sherin Nguyễn, PT 12/01/2018, 1:41 PM documented in this encounter Plan of Treatment Not on filedocumented as of this encounter Visit Diagnoses Diagnosis Mechanical low back pain - Primary Lumbago Cervical spine pain Cervicalgia documented in this encounter Care Teams Location Manager Relationship Specialty Start Date End Date Thalia Barron PA-C PCP - General Physician Ornamental Iron Worker Apprentice 10/06/18 documented as of this encounter
--- OUTSIDE RECORDS SUMMARY | 2022-01-12 12:45 | XMS_ITS | Encounter Summary ---
:1955 Author Organization [facility] Address [address] [place] [address] Care Team Providers Name Role Phone Thalia [...] SPINE LOW BACK PAIN Thalia Barron, [facility] [place] [address] [place] [address], [address] [place] [address] [place] [address] Phone: Fax: Referral ID Status Reason Start Date Expiration Date Visits Requ ested Visits Authorized [id number] Closed 10/06/2018 01/05/[phone] Encounter Details Date Type Department Care Team Description 10/19/2018 Therapy Physicians Neck and Sherin Nguyễn, In chanical low back pain (Primary Dx); Back Center [facility] Cervical spine pain [address] [facility], [address] [address] [place] [address] [place], [place] [id number] [phone] Social History Tobacco Use Types Packs/Day Years Used Date Smoking Tobacco: Never Alcohol Use Standard Drinks/Week Comments No 0 (1 standard drink = 0.6 oz pure alcoho l) Recovering alcoholic Sex Assigned at Date Recorded Not on file documented as of this encounter Progress Notes Sherin Nguyễn, PT - 10/19/2018 1:45 PM CDT 10/19/2018 Visit # 2 Protocol: Neck (acute, disc, stenosis) and Back (acute, disc, adv out as lesley) Start: 1:44 pm End: 2:30 pm (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 Cervical Cervical 10/19/2018 Set 1 Ext % Max 40% Set 1 Ext ROM 27-66 Set 1 Ext Wgt 60 Set 1 Ext Reps 20 Set 1 Ext Tul 72 Set 1 Ext Kevin RPE 5 Objective Tests & Measures: Initiated L-Ext 40%. Initiated C-Ext 40%. Initiated Auxillary Exercises. Tests performed today (see reviewflowsheet for score and outcomes): : None Performed Today Warm Up: Movement Specific Training: Not Completed Bike: Minutes 5 Intensity Level 3. PT assisted patient to setup stationary bicycle. ICE: Back and Neck Lumbar Lumbar & Torso 10/19/2018 Set 1 Ext % Max 40% Set 1 Ext ROM 3-30 Set 1 Ext Wgt 30 Set 1 Ext Reps 20 Set 1 Ext Tul 110 Set 1 Ext Kevin RPE 5 Therapeutic Exercise (26 min): Patient performed auxillary exercises to increase strength and endurance levels of supporting spinalmuscle groups to increase tolerance for sitting, standing, walking, sleeping, bed mobility, lifting,reading, driving, personal care tasks, household tasks and work activities with demonstration by PT,initial setup by PT and VCs for technique. Neuromuscular Re-Education (20 min): Patient performed isolated lumbar extension and isolated cervical extension to retrain muscles for proper sequencing, improve muscle recruitment patterns and to improve movement patterns in an isolatedplane to increase tolerance for sitting, standing, walking, sleeping, bed mobility, lifting, reading, driving, personal care tasks and household tasks. with initial setup by PT and VCs for technique. Auxillary Auxillary 10/19/2018 Abs Wgt Set 1 25 Abs Reps Set 1 20 Abs Wgt Set 2 25 Abs Reps Set 2 20 Glute Wgt Set 1 30 Glute Reps Set 1 20 Rows Wgt Set 1 35 Rows Reps Set 1 20 Lats Wgt Set 1 35 Lats Reps Set 1 20 Other Abs: Small Block. C-Ext: Use B straps and keep gate open. Lats: Used B [place]. Rows: Used B [place]. Therapeutic Activities (0 min): Not performed today. Patient Education: PT instructed patient to do 5 minute cardio warmup when patient arrives for future treatments; informed patient that patient can come earlier if wants to do a longer cardio warmup. Patient education re submax vs max workouts with Med-X exercises. Assessment: Patient ambulates with 4WW in clinic. Patient wearing R wrist splint. Patient tolerated initiation of L-Ext 40%, initiation of C-Ext 40% and initiation of auxillary exercises well. Patient used stool to get on/off G/H auxillary. Patient reports had pain with G/H auxillary. Patient gave good effort throughout treatment and tolerated treatment well. Didn't have time to do LE auxillary exercises - put this in plan for next treatment. At end of treatment, patient reports that evaluating PT gave patient standing Hip Abd exercise to do 2x/weeek for 10 reps; patient reports can only do 4 reps and then has pain; patient asked if should do this exercise more times per week for less reps; PT recommended that patient do this exercise 3 to 4 times per week with less reps; patient understood. Goals: Short Term Goals (4-6 weeks): *1. Pt will sit/drive 10 min with Sx < or = to 3-4/10 (At Eval: 7/10) *2. Pt will stand >3 min with Sx < or = to 3-4/10 (At Eval: 7/10) 3. Pt will perform bed mobility (scooting, rolling, supine to sit etc.) with moderate Sx 3-4/10 4. Pt will walk (with walker) >3 min with burning Sx < or = to 3-4/10 in her feet 5. Pt will get dressed in the morning with Sx < or = to 3-4/10 ?? Cctv Technician Goals (>6 weeks): 1. Patient will be independent with home exercise program after discontinued from Physical Therapy. *2. Pt will sit/drive 20 min with Sx < or = to 1-2/10 (At Eval: 7/10) *3. Pt will stand >10 min with Sx < or = to 1-2/10 (At Eval: 7/10) 4. Pt will perform bed mobility (scooting, rolling, supine to sit etc.) with minimal Sx 1-2/10 5. Pt will walk (with walker) >10 min with burning Sx < or = to 1-2/10 in her feet 6. Pt will get dressed in the morning with Sx < or = to 1-2/10 Certification Dates: 10/15/18-01/13/19 ?? Precautions/Other Information: Follow up with MD: After 8 visits, Directional Preference: lumbar: flexion, cervical: neutral, Hx: Diabetes, HTN, B TKA, central pain syndrome, cervical spondylosis and stenosis, L-Ext #100, C-Ext #213, HEP: unknown 10/19/18: Patient used stool to get on/off G/H auxillary. Recommendations/Communication: Next Treatment: C-Ext 40% and L-Ext 50%. Patient reports had pain with G/H auxillary, may need to adjust settings and/or weight. Add LE auxillary exercises - didn't have time today - Recommend Quads and Hams Auxillary. Progress to 2 sets of auxillary exercises as time allows. Total timed code min: 46 Total treatment time: 46 Sherin Nguyễn PT 10/19/2018, 5:48 PM documented in this encounter Plan of Treatment Not on filedocumented as of this encounter Visit Diagnoses Diagnosis Mechanical low back pain - Primary Lumbago Cervical spine pain Cervicalgia documented in this encounter Care Teams Production Planning Manager Relationship Specialty Start Date End Date Thalia Barron PA-C PCP - General Physician Bracelet Maker Novelty 10/06/18 documented as of this encounter
--- OUTSIDE RECORDS SUMMARY | 2022-01-12 12:45 | XMS_ITS | Encounter Summary ---
:1955 Author Organization [facility] Address [address] [place] [address] Care Team Providers Name Role Phone Thalia Barron PA-C Primary Care Provider Unavailable Reason for Visit Reason Comments BACK PAIN, LOW NECK PAIN Buttocks Pain LEG PAIN PARESTHESIAS ARM PAIN Consult/Transfer Care (Routine) - Closed Specialty Diagnoses / Procedures Referred By Contact Refer red To Contact Physical Therapy Diagnoses Other cervical disc degeneration, unspecified cervical region (HRC) Spinal stenosis, cervical region CERV PAIN STENOSIS OF SPINE LOW BACK PAIN Thalia Barron, PnOrlando [facility] [place]OD[place]IG[place] [address] [address] [facility], [address] [place] [address] [place] [address] Phone: Fax: Referral ID Status Reason Start Date Expiration Date Visits Requ ested Visits Authorized [id number] Closed 10/06/2018 01/05/[phone] Encounter Details Date Type Department Care Team Description 10/15/2018 Therapy Physicians Neck and Nehemiah Kothari M echanical low back pain (Primary Dx); Back Center Noman tyler PT Cervical spine pain [address] [facility], [address] [place] [address] [place] [address] Social History Tobacco Use Types Packs/Day Years Used Date Smoking Tobacco: Never Alcohol Use Standard Drinks/Week Comments No 0 (1 standard drink = 0.6 oz pure alcoho l) Recovering alcoholic Sex Assigned at Date Recorded Not on file documented as of this encounter Progress Notes Nehemiah Kothari PT - 10/15/2018 10:30 AM CDT PHYSICAL THERAPY EVALUATION Patient Report Symptoms: Neck pain and pain into forearms, LBP, B buttocks pain R>L, burning in legs and feet Onset: Years No current facility-administered medications for this visit. Medications reviewed with patient: yes Past medical Hx: Diabetes, HTN, central pain syndrome Past surgical Hx: B TKA Imaging: Cervical MRI 09/15/18: 1. Fine detail degraded by motion artifact. Equivocal T2 hyperintensity within the cord at C6, only appreciated on sagittal T2 weighted sequences. This could reflect cord myelomalacia/edema from cord compression. 2. Maintained cervical lordotic curvature. No fractures. 3. Multilevel advanced cervical spondylosis described at individual levels in the body of the report. Cord deformation and spinal canal stenosis at several levels as described below. 4. At C4-5, broad-based right central/foraminal disc protrusion deforms the anterior cord and contributes to moderately advanced spinal canal stenosis. Advanced right neural foraminal stenosis as well,with likely impingement of the exiting C5 nerve root. 5. At C5-6, broad-based disc osteophyte complex deforms the anterior cord and contributes to advanced spinal canal stenosis. Bilateral uncovertebral and facet hypertrophy, with moderately advanced neural foraminal stenosis bilaterally and potential impingement of the exiting C6 nerve roots. 6. At C6-7, right central disc protrusion deforms the right anterior cord and contributes to overallmoderate spinal canal stenosis. Bilateral uncovertebral hypertrophy, with moderate bilateral neural foraminal stenosis. 7. At C7-T1, moderate right neural foraminal narrowing. 8. Large 2.8 centimeter right-sided thyroid nodule. Consider ultrasound for further evaluation if clinically indicated. Review of systems reviewed with patients: yes Previous Treatment: (see medical history form in Media tab) Occupation: Restrictions: none Exercise habits: Chair dancing (20 min a day) FUNCTION Oswestry Disability Index: 48% Neck Disability Index: 44.0477995660426% Personal Care: morning routine getting dressed Lifting: (doesn't do lifting at home) Walking: Sitting: Standin-3 min Sleepin-7 hrs a night Reading: Drivin min Other Limitations: Pain Characteristics: See patient PAIN DIAGRAM and PAIN CHARACTERISTICS on QUESTIONNAIRE form. Pain level at worst in last 48 hours: Neck: 7/10 Back: 7/10 Aggravated by: (above activities) Improved by: meditation, cardiovascular exercise Description/Quality: Achy, Stabbing and Burning EXAMINATION: Tests and measures: Cervical ROM Lumbar ROM Cervical ROM 10/15/2018 Flexion 6 cm Flexion Comment neck pain Extension 3 cm Extension Comment neck pain Side Bend Left 13 cm Side Bend Right 11 cm Rotation Left 17 cm Rotation Right 16 cm Lumbar ROM 10/15/2018 Flexion 10.5 cm Flexion Comment LBP Extension 40% Extension Comment R LBP Side Bend Left 62 cm Side Bend Right 58 cm Trunk Rotation Left 70% Trunk Rotation Right 80% (If any below was not tested, then was not clinically indicated) Neurologic Testing: Dermatomes LUE RUE C4 Intact to light touch Intact to light touch C5 Intact to light touch Intact to light touch C6 Intact to light touch Hypersensitivity C7 Intact to light touch Intact to light touch C8 Intact to light touch Intact to light touch T1 Intact to light touch Intact to light touch LLE RLE L2 Intact to light touch Hypersensitive L3 Intact to light touch Hypersensitive L4 Intact to light touch Hypersensitive L5 Intact to light touch Hypersensitive S1 Intact to light touch Hypersensitive S2 Intact to light touch Hypersensitive Myotomes LUE RUE C4:Shoulder Elevate 5/5 5/5 C5:Shoulder Abd 5/5 5/5 C6:Elbow Flex 5/5 5/5 C7:Wrist Flex 5/5 5/5 C8:Thumb Ext 5/5 5/5 T1:Finger Abd 5/5 5/5 LLE RLE L2:Hip Flex 5/5 5/5 L3:Knee Ext 5/5 5/5 L4:Dorsiflexion 5/5 5/5 L5:Toe Ext 5/5 5/5 S1:Plantarflexion 5/5 5/5 DTR ZULLY RUE C5:Biceps Brachii diffusely reduce diffusely reduce C6:Brachioradialis diffusely reduce diffusely reduce C7:Triceps diffusely reduce diffusely reduce LLE RLE L3-L4:Patellar absent normal L5: Medial Hamstring normal normal S1-S2: Achilles normal normal FILI ROMO Median Nerve Not Tested Not Tested Ulnar Nerve Not Tested Not Tested Radial Nerve Not Tested Not Tested Special Testing: Special Test Result Spurling's Negative Distraction Test Negative Babinski R: Not Tested L: Not Tested Tinel's Test R: Negative L: Negative Dos Santos's Sign R: Negative L: Negative Lumbar Special Test Result NATALIE R:Positive L: Negative Passive SLR R: Positive L: Positive Active SLR R:Negative L: Negative Prone Instability Not Tested Slump Test R:Negative L: Negative Sacroilliac Special Tests Findings Distraction Not Tested Compression Not Tested Thigh Thrust L: Negative R: Negative Gaenslen's Test L: Not Tested R: Not Tested Sacral Thrust Positive Other tests: Posture: forward lean Palpation: suboccipital and upper trapezius muscle gaurding, muscle gaurding and palpable tendernessof lumbar erector spinae muscles Mobility: Levator scapulae tightness, Tight quadriceps and piriformis bilaterally, positive femoral nerve tension test bilaterally Gait: forward lean Heel Raise: Normal Toe Raise: Normal Functional Testing: None Performed Today Other: MMT Hip Abduction R: 4/5, L: not tested Directional Preference: lumbar: flexion, cervical: neutral P.T. DIAGNOSIS: ICD-10-CM 1. Mechanical low back pain M54.5 2. Cervical spine pain M54.2 PROGNOSIS: good Risk factors/potential barriers: Diabetes, HTN, central pain syndrome ASSESSMENT Patient is a 63 y/o female who presents today with significant functional limitations as noted due to pain in her neck, low back and all extremities. Sx into Pt's feet may be due to diabetic neuropathygiven the stocking distribution but could also be coming from the lumbar spine as Sx worsen with prolonged ambulation. Patient has decreased range of motion, decreased strength, muscle tightness/gaurding, and postural abnormalities. Patient will benefit from skilled Physical Therapy to counteract impairments and regain function. PLAN OF CARE Frequency: 2 visits/week. Duration: 90 days (90 days max for Medicare and [place] patients). Short Term Goals (4-6 weeks): *1. Pt [...] with Sx < or = to 3-4/10 Alf Goals (>6 weeks): 1. Patient will be independent with home exercise program after discontinued from Physical Therapy. *2. Pt will sit/drive 20 min with Sx < or = to 1-2/10 (At Eval: 09/23) *3. Pt will stand >10 min with Sx < or = to 1-2/10 (At Eval: 09/23) 4. Pt will perform bed mobility (scooting, rolling, supine to sit etc.) with minimal Sx 1-2/10 5. Pt will walk (with walker) >10 min with burning Sx < or = to 1-2/10 in her feet 6. Pt will get dressed in the morning with Sx < or = to 1-2/10 Certification Dates: 10/15/18-01/13/19 Planned Interventions: Therapeutic Exercise to improve tolerance with standing, walking, sitting/driving, bed mobility, and personal care. Neuromuscular Re-education to improve tolerance and movement patterns/posture during ADL's Therapeutic Activities to prevent future injury/aggravation Discharge Plan: [place] in strength maintenance home exercise program TODAY'S INTERVENTIONS: Therapeutic Exercise and Therapeutic Activity Nehemiah Kothari, PT 10/15/2018, 1:35 PM 10/15/2018 Visit # 1 Protocol: Neck (acute, disc, stenosis) and Back (acute, disc, adv out as lesley) Start: 10:31End: 11:30 (ROD DRAWER Visit # 0 Subjective: see eval Cervical Not performed today. Objective Tests & Measures: See eval Tests performed today (see reviewflowsheet for score and outcomes): : None Performed Today Warm Up: Movement Specific Training: Completed Mat Exercises Completed ICE: none Lumbar Not performed today. Therapeutic Exercise (22 min): Patient performed auxillary exercises to improve muscle strength, flexibility and to improve range of motion to increase tolerance for sitting, standing, walking, bed mobility and driving. Tactile and verbal cues to achieve proper body position and alignment prior to exercise. Verbal cuesfor proper pacing and form during exercise. Neuromuscular Re-Education ( min): None performed today. Auxillary Lumbar and cervical ROM and stretches (see below for details) Therapeutic Activities (8 min): Therapeutic Activities 10/15/2018 SITTING POSTURE Independent STANDING POSTURE Needs further training WEIGHT SHIFT Independent Proper use of chair and lumbar support to achieve proper neutral spine position and decrease stress on the spine when sitting. Activation of transverse abdominis muscle in standing to improve posture and decrease stress on the spine. Patient Education: Patient was instructed in pain/time scale and correlation of strength and function to increase theirunderstanding of the benefits related to completing the [facility] Rehab program POC and expected outcomes. All Pt questions answered, and HEP started with hand out given to Pt withspecific exercises to perform. Access Code: [email or web address] URL: [email or web address] Date: 10/21/2018 Prepared by: Nehemiah Kothari Exercises Neck Flexion Stretch - 5 reps - 1 sets - 5 hold - 1x daily - 7x weekly Neck Extension Stretch - 5 reps - 1 sets - 5 hold - 1x daily - 7x weekly Neck Rotation Stretch - 5 reps - 1 sets - 5 hold - 1x daily - 7x weekly Neck Sidebend Stretch - 5 reps - 1 sets - 5 hold - 1x daily - 7x weekly Seated Levator Scapulae Stretch - 4 reps - 1 sets - 1x daily - 7x weekly Supine Double Knee to Chest - 5 reps - 1 sets - 5 hold - 1x daily - 7x weekly Supine Lower Trunk Rotation - 5 reps - 1 sets - 5 hold - 1x daily - 7x weekly Standing Hip Abduction - 10 reps - 2 sets - 1 hold - 1x daily - 2x weekly Prone Press Up on Elbows - 5 reps - 1 sets - 5 hold - 1x daily - 7x weekly Gastroc Stretch on Wall - 3 reps - 1 sets - 20 hold - 1x daily - 7x weekly Prone Femoral Nerve Mobilization - 10 reps - 1 sets - 1 hold - 1x daily - 7x weekly Supine Piriformis Stretch with Foot on Ground - 2 reps - 1 sets - 30 hold - 1x daily - 7x weekly Seated Piriformis Stretch - 1 reps - 1 sets - 60 hold - 1x daily - 7x weekly Assessment: Pt verbalized full understanding of plan of care. Goals: Short Term Goals (4-6 weeks): *1. [...] with Sx < or = to 3-4/10 Commercial Property Manager Goals (>6 weeks): 1. Patient will [...] or = to 1-2/10 Certification Dates: 10/15/18-01/13/19 Precautions/Other Information: Follow up with MD: After 8 visits, Directional Preference: lumbar: flexion, cervical: neutral, Hx: Diabetes, HTN, B TKA, central pain syndrome, cervical spondylosis and stenosis, L-Ext #100, C-Ext #213, HEP: unknown Recommendations/Communication: Start C-ext 40%, Start L-ext 40% Start cervical and lumbar aux's Total timed code min: 59 Total treatment time: 59 Nehemiah Kothari, PT 10/15/2018, 1:35 PM Associated attestation - Cecilia Calloway MD - 10/22/2018 7:21 AM CDT Agree with assessment and treatment plan documented in this encounter Plan of Treatment Not on filedocumented as of this encounter Visit Diagnoses Diagnosis Mechanical low back pain - Primary Lumbago Cervical spine pain Cervicalgia documented in this encounter Care Teams Fitting Room Attendant Relationship Specialty Start Date End Date Thalia Barron PA-C PCP - General Physician Neonatal Doctor 10/06/18 documented as of this encounter
--- OUTSIDE RECORDS SUMMARY | 2022-01-12 12:45 | XMS_ITS | Encounter Summary ---
:1955 Author Organization [facility] Address [address] [place] [address] Care Team Providers Name Role Phone Denise Harris MD Primary Care Provider Encounter Details Date Type Department Care Team Description 07/19/2009 Office Visit [facility] Joshua Pires MD [address] [place], [place] [address] [address] [place] [address] [phone] (Wo rk) Social History Tobacco Use Types Packs/Day Years Used Date Smoking Tobacco: Former Alcohol Use Standard Drinks/Week Comments No 0 (1 standard drink = 0.6 oz pure alcoho l) Recovering alcoholic Sex Assigned at Date Recorded Not on file documented as of this encounter Progress Notes Joshua Zaidi MD - 07/19/2009 12:01 AM CDT Progress Notes signed by Joshua Zaidi MD at 08/04/09 1321 Author: Joshua Zaidi MD Service: (none) Author Type: Physician Filed: 07/07/10 2212 Note Time: 07/19/09 0001 Status: Signed Pastry Artist: Joshua Zaidi MD (Physician) NAME: FANTA GREGORIO VISIT: [id number] DICTATING CLINICIAN: JOSHUA ZAIDI MD JOB: [id number] LOC: 3718 CLINIC PROGRESS NOTE DATE OF VISIT: 07/19/2009 SUBJECTIVE: This patient is in today for a followup visit of her left knee status post left total knee replacement on 04/25/2009. The patient comes in and states that she has been doing fairly well up until recently. She was working out and while doing exercises she felt like she pulled a hamstring on her operative side. This was about 2 to 3 weeks ago. She states that she has some mild discomfort on the lateral aspect of her knee, but otherwise her knee is doing well. She denies any swelling, locking, catching or rahul giving way. PHYSICAL EXAM: She has range of motion from 0 to 130 degrees of flexion. She has no effusion. Stable to varus and valgus stress. Negative anterior and posterior drawer. No medial or lateral joint line tenderness. She has some mild tenderness over her vastus lateralis and also posteriorly over the distal lateral hamstring. She has no swelling or ecchymosis at this time. She is otherwise neurovascularly intact. No new x-rays were obtained today. IMPRESSION: The patient is 3 months status post total knee replacement. She seems to be doing fairly well. She has a bit of a hamstring strain at this time. Will treat the patient with some Voltaren cream, which she had actually already picked up from her primary care doctor, and this should help and continue to improve. The patient will return to see me in 3 months time. This patient's office visit was 15 minutes of [id number] time of which 10 minutes was counseling. DOCUMENT: [id number] documented in this encounter Plan of Treatment Not on filedocumented as of this encounter Visit Diagnoses Not on filedocumented in this encounter Care Teams Youth Program Director Relationship Specialty Start Date End Date Denise Harris MD PCP - General 06/17/10 10/05/[address] [place] [address] documented as of this encounter
--- OUTSIDE RECORDS SUMMARY | 2022-01-12 12:45 | XMS_ITS | Encounter Summary ---
:1955 Author Organization [facility] Address [address], [place] [address] Care Team Providers Name Role Phone Thalia Barron PA-C Primary Care Provider Unavailable Reason for Visit Reason Comments BACK PAIN, LOW NECK PAIN Encounter Details Date Type Department Care Team Description 12/07/2018 Telephone Physicians Neck and Maxim, Marimar Cid, DISTRICT RANGER BACK PAIN, LOW; NECK [facility] [address] [facility], PA[place] [address] [facility], [facility] [address] [place] [address] [place] [address] [phone] Social History Tobacco Use Types Packs/Day Years Used Date Smoking Tobacco: Never Alcohol Use Standard Drinks/Week Comments No 0 (1 standard drink = 0.6 oz pure alcoho l) Recovering alcoholic Sex Assigned at Date Recorded Not on file documented as of this encounter Plan of Treatment Not on filedocumented as of this encounter Visit Diagnoses Not on filedocumented in this encounter Care Teams Chemistry Laboratory Technician Relationship Specialty Start Date End Date Thalia Barron PA-C PCP - General Physician Monitoring Manager 10/06/18 documented as of this encounter
--- OUTSIDE RECORDS SUMMARY | 2022-01-12 12:45 | XMS_ITS | Encounter Summary ---
:1955 Author Organization [facility] Address [address] [place] [address] Care Team Providers Name Role Phone Thalia [...] OF SPINE LOW BACK PAIN Thalia Barron, [facility] Healthcare[facility]ash[facility] WALLACE [address] [address] [facility], [address] [place] [address] [place] [address] Phone: Fax: Referral ID Status Reason Start Date Expiration Date Visits Requ ested Visits Authorized [id number] Closed 10/06/2018 01/05/[phone] Encounter Details Date Type Department Care Team Description 12/17/2018 Therapy Physicians Neck and Nehemiah Kothari M echanical low back pain (Primary Dx); Back Center [place] ty[place] PT Cervical spine pain [address] [facility], [address] [place] [address] [place] [address] [phone] Social History Tobacco Use Types Packs/Day Years Used Date Smoking Tobacco: Never Alcohol Use Standard Drinks/Week Comments No 0 (1 standard drink = 0.6 oz pure alcoho l) Recovering alcoholic Sex Assigned at Date Recorded Not on file documented as of this encounter Progress Notes Nehemiah Kothari PT - 12/17/2018 11:15 AM CDT 12/17/2018 Visit # 12 Protocol: Neck (Acute, disc,stenosis) Back (Acute, Disc, adv out as lesley) Start: 11:22 End: 12:00 (CARTOGRAPHIC TECHNICIAN Visit # 0 Subjective: States she is very sore today due to the weather and been troubled about the health of her cat as well. Cervical Cervical 12/17/2018 Set 1 Ext % Max 100% Set 1 Ext ROM 27-78 Set 1 Ext Wgt 150 Set 1 Ext Reps 25 Set 1 Ext Tul no timer Set 1 Ext Kevin RPE 5 Set 2 Ext % Max 100% Set 2 Ext ROM 27-78 Set 2 Ext Wgt 150 Set 2 Ext Reps 25 Set 2 Ext Tul no timer Set 2 Ext Kevin RPE 5 Left Rot % Max - Left Rot [...] Today Warm Up: Movement Specific Training: Completed UBE: Minutes 5 Intensity mod ICE: Neck Lumbar Lumbar & Torso 12/17/2018 Set 1 Ext % Max - Set [...] 22 Left Rot Reps 20 Left Rot Philip RPE 9 Right Rot % Max 60% Right Rot ROM 35 Right Rot Wgt 22 Right Rot Reps 20 Right Rot Kevin RPE 9 Therapeutic Exercise (38 min): Patient performed isolated cervical extension, isolated thoracic rotation exercise and auxillary exercises to increase strength and endurance levels of supporting spinal muscle groups to increase tolerance for standing and walking. Tactile and verbal cues to achieve proper body position and alignment prior to exercise. Verbal cuesfor proper pacing and form during exercise. Verbal cues to perform proper breathing pattern during exercise. Neuromuscular Re-Education ( min): Not performed today Auxillary Auxillary 12/17/2018 Abs Wgt Set 1 35 Abs Reps Set 1 20 Abs Wgt Set 2 - Abs Reps Set 2 - Glute Wgt Set 1 70 Glute Reps Set 1 20 Glute Wgt Set 2 - Glute Reps Set 2 - Rows Wgt Set 1 - Rows Reps Set 1 - Rows Wgt Set 2 - Rows Reps Set 2 - Lats Wgt Set 1 50 Lats Reps Set 1 20 Lats Wgt Set 2 - Lats Reps Set 2 - Other Quads #35 1x6 and P!, Hams #35 1x20 HEP - Therapeutic Activities ( min): Not performed today. Patient Education: HEP instruct, however not to perform these isolated strengthening exercises on their own outside of therapy until completion of therapy. Pt verbalized full understanding. Assessment: Pt getting some increased pain in the posterior aspect of her knees on quadriceps exercise but no pain on hamstrings exercise. Pt still making very slow progress in therapy. Goals: Short Term Goals (4-6 weeks): *1. Pt will sit/drive 10 min??with Sx <??or = to 3-10??(At Eval: 09/23)?MET 12/01/18 *2. Pt will stand??>3 min??with Sx <??or = to 3-410??(At Eval: 09/23) ??Still difficult standing more than a few min 12/17/18 3. Pt will??perform bed mobility (scooting, rolling, supine to sit etc.)??with moderate Sx 3-4/10?Cannot tell if it has improved getting out of bed??12/17/18 4. Pt will walk (with walker) ??>3 min with burning Sx <??or = to??3-4/10 in her feet ??Still difficult walking more than a few min 12/17/18 5. Pt will get dressed in the morning with??Sx < or = to??3-4/10 Been more sore over the last couple days 12/17/18 ?? Long-Term Goals (>6 weeks): 1. Patient will be independent with home exercise program after discontinued from Physical Therapy.?Progressing 12/17/18 *2. Pt will sit/drive 20 min??with Sx <??or = to -04/26??(At Eval: 7/10) progressing, 12/17/18 *3. Pt will stand??>10 min??with Sx <??or = to 1-04/26??(At Eval: 09/23) 4.??Pt will perform bed mobility (scooting, rolling, supine to sit etc.)??with minimal Sx 1-2 5. Pt will walk (with walker) >10 min with burning??Sx < or = to??1-2 in her feet 6. Pt will get dressed in the morning with??Sx < or = to??-2 Certification Dates: 10/15/18-01/13/19 ?? Precautions/Other Information: Follow up with MD:??After 8 visits, Directional Preference:??lumbar: flexion, cervical: neutral, Hx:??Diabetes, HTN, B TKA, central pain syndrome, cervical spondylosis and stenosis,??L-Ext??#100, C- Ext??#213, HEP:??unknown?10/19/18:??Patient used stool to get on/off G/H auxillary.??C-Ext ROM: 27-78 only, No ANTI-GRAVITY CERVICAL rotation 12/10/18 Recommendations/Communication: jani chair as able (not performed today d/t Pt very sore) L-ext 100%, C-roto 70%, TA's Total timed code min: 38 Total treatment time: 38 Nehemiah Kothari PT 12/17/2018, 12:52 PM documented in this encounter Plan of Treatment Not on filedocumented as of this encounter Visit Diagnoses Diagnosis Mechanical low back pain - Primary Lumbago Cervical spine pain Cervicalgia documented in this encounter Care Teams Fuels Sales Representative Relationship Specialty Start Date End Date Thalia Barron PA-C PCP - General Physician Joy Operator 10/06/18 documented as of this encounter
--- OUTSIDE RECORDS SUMMARY | 2022-01-12 12:45 | XMS_ITS | Encounter Summary ---
:1955 Author Organization [facility] Address [address] [place] [address] Care Team Providers Name Role Phone Denise Harris MD Primary Care Provider Encounter Details Date Type Department Care Team Description 01/24/2010 Office Visit [facility] Joshua Zaidi MD [address] [place] [address] [address] [place] [address] [phone] (Wo rk) Social History Tobacco Use Types Packs/Day Years Used Date Smoking Tobacco: Former Alcohol Use Standard Drinks/Week Comments No 0 (1 standard drink = 0.6 oz pure alcoho l) Recovering alcoholic Sex Assigned at Date Recorded Not on file documented as of this encounter Progress Notes Joshua Zaidi MD - 01/24/2010 12:01 AM CST NAME: FANTA GREGORIO VISIT: [id number] DICTATING CLINICIAN: JOSHUA ZAIDI MD JOB: [id number] LOC: 3711 CLINIC PROGRESS NOTE DATE OF VISIT: 01/24/2010 Fanta is a 54-year-old who is coming in today for recheck of her left knee. She underwent a left knee total arthroplasty on 04/25/2009. She is now 9 months out from surgery. She [facility]. However, she is requesting continued therapy and needs a referral. She currently rates her pain as 2-3/10. She has had some recurrent swelling to the left knee. No thigh or calf pain. No signs of infection. She denies any locking, catching or giving way. She has been having some discomfort and wonders if she may have pulled a hamstring or has had some sort of soft tissue injury. PHYSICAL EXAM: Megan is a very alert, cooperative woman in no apparent distress. She ambulates with a nonantalgic gait using no assistive devices. Her skin shows no signs of abnormality other than well-healed incisions from her previous surgery. Range of motion is full. She is stable to anterior and posterior drawer testing. She does have some tenderness to palpation over her distal IT band at Gerdy's tubercle. She is otherwise neurovascularly intact. ASSESSMENT: 1. Left total knee arthroplasty on 04/25/2009; nine months. 2. IT band tendinitis. PLAN: 1. After patient consent was obtained the Gerdy's tubercle of the left knee was prepped with Betadine solution and 4 mL of lidocaine along with 1 mL of Kenalog was then injected. Aseptic technique was used. Patient tolerated the procedure well. 2. Physical therapy referral was given. 3. Follow up in 2-3 months. Should she have any questions or concerns, she is encouraged to call clinic. D: [id number] T: [id number] DOCUMENT: [id number]. [id number].[facility] [employer] documented in this encounter Plan of Treatment Not on filedocumented as of this encounter Visit Diagnoses Not on filedocumented in this encounter Care Teams Plating Inspector Relationship Specialty Start Date End Date Denise Harris MD PCP - General 06/17/10 10/05/181999 [place] [address] documented as of this encounter
--- OUTSIDE RECORDS SUMMARY | 2022-01-12 12:45 | XMS_ITS | Encounter Summary ---
:1955 Author Organization [facility] Address [address] [place] [address] Care Team Providers Name Role Phone Thalia [...] OF SPINE LOW BACK PAIN Thalia Barron, [facility] [place] [address] [address] [facility], [address] [place] [address] [place] [address] Phone: Fax: Referral ID Status Reason Start Date Expiration Date Visits Requ ested Visits Authorized [id number] Closed 10/06/2018 01/05/[phone] Encounter Details Date Type Department Care Team Description 12/25/2018 Therapy Physicians Neck and Back Margarette Taylor Mechanical low back pain (Primary Dx); [facility] ZACHERY Crocker Cervical spine pain [address] [facility], [address], [place] [address] [place] [address] [place], [place] [id number] Social History Tobacco Use Types Packs/Day Years Used Date Smoking Tobacco: Never Alcohol Use Standard Drinks/Week Comments No 0 (1 standard drink = 0.6 oz pure alcoho l) Recovering alcoholic Sex Assigned at Date Recorded Not on file documented as of this encounter Progress Notes Gena Taylor PTA - 12/25/2018 11:15 AM CDT 12/25/2018 Visit # 14 Protocol: Neck (Acute, disc,stenosis) Back (Acute, Disc, adv out as lesley) Start: 11:14 End: 12:00 (PRN 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 Cervical Cervical 12/25/2018 Set 1 Ext % Max 100 Set 1 Ext ROM 27-78 Set 1 Ext Wgt 165 Set 1 Ext Reps 30 Set 1 Ext Tul - Set 1 Ext Kevin RPE 8 Set 2 Ext % Max 100 Set 2 Ext ROM 27-78 Set 2 Ext Wgt 165 Set 2 Ext Reps 30 Set 2 Ext Tul - Set 2 Ext Kevin RPE 8 Left Rot % Max - Left Rot ROM - Left Rot Wgt - Left Rot Reps - Left Rot Kevin RPE - Right Rot % Max - Right Rot ROM - Right Rot Wgt - Right Rot Reps - Right Rot Kevin RPE - Objective Tests & Measures: + 10% wt in cervical extension. Increases in repetitions prn. Tests performed today (see reviewfloweet for score and outcomes): : None Performed Today Warm Up: Movement Specific Training: Completed Mat Exercises Completed UBE: Minutes 10 Intensity mod ICE: Back and Neck Lumbar Lumbar & Torso 12/25/2018 Set 1 Ext % Max - Set [...] Kevin RPE - Left Rot % Max 80 Left Rot ROM 35 Left Rot Wgt 22 Left Rot Reps 30 Left Rot Philip RPE 7-8 Right Rot % Max 80 Right Rot ROM 35 Right Rot Wgt 22 Right Rot Reps 30 Right Rot Kevin RPE 30 Therapeutic Exercise (40 min): Patient performed isolated torso rotation exercise, isolated cervical extension exercise and auxillary exercises to improve muscle strength, to improve muscle endurance, to improve muscle flexibility, to improve range of motion, to increase strength for seated posture, to increase strength for standing posture, to provide postural and scapular stability and increase strength and endurance levels of supporting spinal muscle groups to increase tolerance for personal care tasks Analyzed data from previous treatment to determine changes in range of motion and weight capacity for today's RX. Cued pt for correct body alignment and form during the exercises. Advised on optimal pace to achieve most benefits of the exercise. See Daily Exercise flow sheet for numeric details. Neuromuscular Re-Education (0 min): None performed today. Auxillary Auxillary 12/25/2018 Abs Wgt Set 1 40 Abs Reps Set 1 20 Abs Wgt Set 2 - Abs Reps Set 2 - Glute Wgt Set 1 70 Glute Reps Set 1 25 Glute Wgt Set 2 - Glute Reps Set 2 - Rows Wgt Set 1 50 Rows Reps Set 1 20 Rows Wgt Set 2 50 Rows Reps Set 2 20 Lats Wgt Set 1 50 Lats Reps Set 1 25 Lats Wgt Set 2 - Lats Reps Set 2 - Other Q 35# x25x Ham 40# 20x HEP - Therapeutic Activities (0 min): Not performed today. Patient Education: Patient was instructed in pain/time scale and correlation of strength and function to increase theirunderstanding of the benefits related to completing the [facility] Rehab program Assessment: self regulates how many reps she can do on a particular exercise. Achieved target fatigue on all exercises today, good effort works hard within her endurance limitations. Goals: Short Term Goals (4-6 weeks): *1. [...] over the last couple days 12/17/18 ?? Career Coach Goals (>6 weeks): 1. Patient will be independent with home exercise program after discontinued from Physical Therapy.?Progressing 12/17/18 *2. Pt will sit/drive 20 min??with Sx <??or = to 1-2/10??(At Eval: 09/23) progressing, 12/17/18 *3. Pt will stand??>10 min??with [...] only, No ANTI-GRAVITY CERVICAL rotation 12/10/18 Recommendations/Communication: Lumbar Ext 100% C-Roto 80% Total timed code min: 46 Total treatment time: 46 Gena Taylor PTA 12/25/2018, 12:04 PM documented in this encounter Plan of Treatment Not on filedocumented as of this encounter Visit Diagnoses Diagnosis Mechanical low back pain - Primary Lumbago Cervical spine pain Cervicalgia documented in this encounter Care Teams Graphics Coordinator Relationship Specialty Start Date End Date Thalia Barron PA-C PCP - General Physician Radon Inspector 10/06/18 documented as of this encounter
--- OUTSIDE RECORDS SUMMARY | 2022-01-12 12:45 | XMS_ITS | Encounter Summary ---
:1955 Author Organization [facility] Address [address] [address] Care Team Providers Name Role Phone Thalia Barron PA-C Primary Care Provider Unavailable Encounter Details Date Type Department Care Team Description 10/21/2018 Episode Changes Physicians Neck and Back Nehemiah Kothari, PT [facility] [address] [facility] [address] [facility] [place] [address] [place] [address] [phone] Social History Tobacco Use Types Packs/Day Years Used Date Smoking Tobacco: Never Alcohol Use Standard Drinks/Week Comments No 0 (1 standard drink = 0.6 oz pure alcoho l) Recovering alcoholic Sex Assigned at Date Recorded Not on file documented as of this encounter Plan of Treatment Not on filedocumented as of this encounter Visit Diagnoses Not on filedocumented in this encounter Care Teams Screening Specialist Relationship Specialty Start Date End Date Thalia Barron PA-C PCP - General Physician Crew Manager 10/06/18 documented as of this encounter
--- OUTSIDE RECORDS SUMMARY | 2022-01-12 12:45 | XMS_ITS | Encounter Summary ---
:1955 Author Organization [facility] Address [address] [place] [address] Care Team Providers Name Role Phone Thalia [...] LOW BACK PAIN [facility] [place] [address] [place] [address], [address] [place] [address] [place] [address] Phone: Fax: Referral ID Status Reason Start Date Expiration Date Visits Requ ested Visits Authorized [id number] Closed 10/06/2018 01/05/[phone] Encounter Details Date Type Department Care Team Description 01/12/2019 Therapy Physicians Neck and Bubba Kwong, [facility] hanical low back pain (Primary Dx); [facility] HAT MODEL Cervical spine pain [address] [facility], [address] [facility] , [address] [place] [address] [place] [address] [place] [address] [phone] (Wo rk) Social History Tobacco Use Types Packs/Day Years Used Date Smoking Tobacco: Never Alcohol Use Standard Drinks/Week Comments No 0 (1 standard drink = 0.6 oz pure alcoho l) Recovering alcoholic Sex Assigned at Date Recorded Not on file documented as of this encounter Progress Notes Sherin Nguyễn, PT - 01/12/2019 11:15 AM CDT 01/12/2019 Visit # 18 Protocol: Neck??(acute, disc, stenosis) Back (acute, disc, advance out as tolerated) Start: 1110a End: 1152a (HAT MODEL Visit # 1 Subjective: Pt reports neck and back doing well, pleased with progress. I have become more active.Buying a motor scooter to get out of the house and take pictures with her camera. Cervical Cervical 01/12/2019 Set 1 Ext % Max 100% Set 1 Ext ROM 27-78 Set 1 Ext Wgt 180 Set 1 Ext Reps 20 Set 1 Ext Tul no comp Set 1 Ext Kevin RPE 5 Set 2 Ext % Max 100% Set 2 Ext ROM 27-78 Set 2 Ext Wgt 180 Set 2 Ext Reps 20 Set 2 Ext Tul - Set 2 Ext Kevin RPE 6 Left Rot % Max - Left Rot ROM - Left Rot Wgt - Left Rot Reps - Left Rot Kevin RPE - Right Rot % Max - Right Rot ROM - Right Rot Wgt - Right Rot Reps - Right Rot Kevin RPE - Objective Tests & Measures: Tests performed today (see [facility] for score and outcomes): : None Performed Today Warm Up: Movement Specific Training: Not Completed Mat Exercises Completed ICE: Back Lumbar Lumbar & Torso 01/12/2019 Set 1 Ext % Max - Set [...] Left Rot Wgt 24 Left Rot Reps 20 Left Rot Philip RPE 6 Right Rot % Max 90% Right Rot ROM 35 Right Rot Wgt 24 Right Rot Reps 20 Right Rot Kevin RPE 6 Therapeutic Exercise (42 min): Patient performed isolated torso rotation exercise, isolated cervical extension exercise and auxillary exercises to improve muscle strength, to improve muscle endurance, increase strength and endurancelevels of supporting spinal muscle groups and to strengthen postural muscles to decrease stresses onthe spine to increase tolerance for sitting, standing, walking, bed mobility, lifting, driving, personal care tasks and household tasks Verbal cues instructed in proper form and control on Cervical Extension machine to avoid substitution and momentum. Verbal cues for proper form and control on Thoracic Rotation with instruction on which shoulder to push with to avoid substitution on the wrong side of muscle groups. Instructed in slow reps to avoid momentum and improper form. Neuromuscular Re-Education (0 min): None performed today. Auxillary Auxillary 01/12/2019 Abs Wgt Set 1 55 Abs Reps Set 1 20 Abs Wgt Set 2 55 Abs Reps Set 2 20 Glute Wgt Set 1 80 Glute Reps Set 1 20 Glute Wgt Set 2 80 Glute Reps Set 2 10 Rows Wgt Set 1 55 Rows Reps Set 1 25 Rows Wgt Set 2 - Rows Reps Set 2 1 set Lats Wgt Set 1 55 Lats Reps Set 1 20 Lats Wgt Set 2 55 Lats Reps Set 2 20 Other Quads 40# x20, 1 set Hams 40# 1x20 HEP - Therapeutic Activities (0 min): Not performed today. Patient Education: Patient was instructed in correlation of strength and function to increase their understanding of the benefits related to completing the [facility] program Increase most auxiliary machines and pt self limited on reps based on how she felt. STG's reviewed and more being met. No LTG's yet with sitting, bed mobility or standing length of time. Assessment: Yaz Multani tolerated treatment ok, self limited on quads with one set, able to increase weight on most today. States she felt some low back pain with cervical extension today. Not sure why. Observed form and speed on all reps to avoid substitution, proper positioning and cues as needed on form and speed on reps. Gives good effort in machines. Pt declines to go heavier weight on second sets. Able to increase auxiliary machines on first set but pt self limits reps on her own. Good workout overall. Pt pleased with progress and helping her socially to get out more and see other people. Goals: Short Term Goals (4-6 weeks): ?? *1. Pt will sit/drive 10 min??with Sx <??or = to 3-4/10??(At Eval: 09/23)?MET 12/01/18 *2. Pt will stand??>3 min??with Sx <??or = to 3-4/10??(At Eval: 09/23) ??Still difficult standing more than a few min 01/12/19 3. Pt will??perform bed mobility (scooting, rolling, supine to sit etc.)??with moderate Sx 3-4/10?? MET 01/12/19 4. Pt will walk (with walker) ??>3 min with burning Sx <??or = to??3-4/10 in her feet ??Feet more of issue than low back, not applicable goal for pt. 01/12/19 5. Pt will get dressed in the morning with??Sx <??or = to??3-4/10??MET 01/12/19?? Longterm Goals (>6 weeks): ?? 1. Patient will [...] with??Sx < or = to??1-04/26 Certification Dates: 01/12/19 - 04/11/19 Re-Certification: 01/12/19 - 04/11/19 POC 2x/week x [...] form whenlifting/carrying heavy objects at home. Sherin Nguyễn, PT 01/12/2019, 12:56 PM ?? Precautions/Other Information: Follow up with MD:??After 8 visits, Directional Preference:??lumbar: flexion, cervical: neutral, Hx:??Diabetes, HTN, B TKA, central pain syndrome, cervical spondylosis and stenosis,??L-Ext??#100, C- Ext??#213, HEP:??unknown?10/19/18:??Patient used stool to get on/off G/H auxillary.??C-Ext ROM: 27-78 only, No ANTI-GRAVITY CERVICAL rotation 12/10/18 Recommendations/Communication: 80% cervical rotation and 100% lumbar extension next. Continue treatment per PT POC. Therapeutic activities review. Increase lats to 60#. Total timed code min: 42 Total treatment time: 42 Bubba Kwong, HAT MODEL 01/12/2019, 11:56 AM Associated attestation - Cecilia Calloway MD - 01/14/2019 7:40 AM CDT Agree with assessment and treatment plan documented in this encounter Plan of Treatment Not on filedocumented as of this encounter Visit Diagnoses Diagnosis Mechanical low back pain - Primary Lumbago Cervical spine pain Cervicalgia documented in this encounter Care Teams Regulator Operator Relationship Specialty Start Date End Date Thalia Barron PA-C PCP - General Physician Airconditioning Drafting Officer 10/06/18 documented as of this encounter
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
--- OUTSIDE RECORDS SUMMARY | 2022-01-12 12:45 | XMS_ITS | Encounter Summary ---
:1955 [facility] Address [address] [place] [address] Care Team Providers Name Role Phone Thalia [...] OF SPINE LOW BACK PAIN Thalia Barron, [facility] [place] [address] [address] [facility], [address] [place] [address] [place] [address] Phone: Fax: Referral ID Status Reason Start Date Expiration Date Visits Requ ested Visits Authorized [id number] Closed 10/06/2018 01/05/[phone] Encounter Details Date Type Department Care Team Description 01/18/2019 Therapy Physicians Neck and Marimar Pan PTA Mechanical low back pain (Primary Dx); Back Center [facility] [address] [address], Cervical spine pain [address] [facility], [address] [place] [address] [place] [address] [phone] Social History Tobacco Use Types Packs/Day Years Used Date Smoking Tobacco: Never Alcohol Use Standard Drinks/Week Comments No 0 (1 standard drink = 0.6 oz pure alcoho l) Recovering alcoholic Sex Assigned at Date Recorded Not on file documented as of this encounter Progress Notes Khadijah Pan PTA - 01/18/2019 11:15 AM CST 01/18/2019 Visit # 20 Protocol: Neck (acute, disc and stenosis), Back (acute, disc, advance out as tolerated) Start: 11:15 am End: 12:00 pm (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 She feels she has really come around in the last 2 weeks. She is pushing herself harder as she knows she is on a time line with limited visits. Cervical Cervical 01/18/2019 Set 1 Ext % Max 100% Set 1 Ext ROM 27-78 Set 1 Ext Wgt 189 Set 1 Ext Reps 25 Set 1 Ext Tul - Set 1 Ext Kevin RPE 6/10 Set 2 Ext % Max Set 2 Ext ROM Set 2 Ext Wgt Set 2 Ext Reps - Set 2 [...] Kevin RPE - Objective Tests & Measures: 10% wt increase on cervical extension 2 # increase on torso rotation ROM changes: remains the same, no changes on cervical extension Or torso rotation exercises. Tests performed today (see reviewflowsheet for score and outcomes): : Oswestry : initial: 48%, 10th : 46%, Today: 29% Neck Disability Index: 44% on initial, 10th visit: 38%, 18% today. Warm Up: Movement Specific Training: Not Completed none today ICE: Back and Neck Lumbar Lumbar & Torso 01/18/2019 Set 1 Ext % Max - Set [...] Kevin RPE - Left Rot % Max 100% Left Rot ROM 35 Left Rot Wgt 26 Left Rot Reps 25 Left Rot Philip RPE 6/10 Right Rot % Max 100% Right Rot ROM 35 Right Rot Wgt 26 Right Rot Reps 25 Right Rot Kevin RPE 6/10 Therapeutic Exercise (45 min): Patient performed isolated torso rotation exercise, [...] for sitting, standing, walking, bed mobility and personal care tasks Pt required cues to lead up [...] and reminders of body position. Neuromuscular Re-Education (0 min): None performed today. Auxillary Auxillary 01/18/2019 Abs Wgt Set 1 60 Abs Reps Set 1 20 Abs Wgt Set 2 - Abs Reps Set 2 - Glute Wgt Set 1 85 Glute Reps Set 1 30 Glute Wgt Set 2 - Glute Reps Set 2 - Rows Wgt Set 1 55 Rows Reps Set 1 20 Rows Wgt Set 2 - Rows Reps Set 2 - Lats Wgt Set 1 70 Lats Reps Set 1 20 Lats Wgt Set 2 - Lats Reps Set 2 - Other Quad 45# 25 Hams 40# 25 HEP - Therapeutic Activities (0 min): Not performed today. Patient Education: Patient was instructed in correlation of strength and function to increase their understanding of the benefits related to completing the [facility] Rehab program LENCHO, NDI see above for results. Improved on both indexes. Patient responded well the education on improvement with her strength gains and impact on daily lifetoday. Assessment: ROM: no changes. Graph #'s discussed in how much improvement has occurred since start ofcare at [facility]> Goals: reviewed with LENCHO/NDI Pt tolerated the treatment fine with good effort and an effective muscle fatigue level to improve muscle strength around the cervical and lumbar spine. Patient will then have more success with performing functional duties around the house, work related tasks and ADL.s without discomfort. Patient follows cus easily and changes form as directed to achieve the best muscle activation/isolation. Many goals have been met with bed mobility, walking distance anddressing in the morning still not met but have improved greatly in functional abilities on these. Goals: Short Term Goals (4-6 weeks): ?? *1. Pt will sit/drive 10 min??with Sx <??or = to 3-4??(At Eval: 09/23)?MET 12/01/18 *2. Pt will stand??>3 min??with Sx <??or = to 3-410??(At Eval: 09/23) ??Met 01-18-19 3. Pt will??perform bed mobility (scooting, rolling, supine to sit etc.)??with moderate Sx 3-410?? MET 01/12/19 4. Pt will walk (with walker) ??>3 min with burning Sx <??or = to??3-06/24 in her feet ??Feet more of issue than low back, not applicable goal for pt. ??01/12/19 5. Pt will get dressed in the morning with??Sx <??or = to??3-4??MET 01/12/19?? Boxing Trainer Goals (>6 weeks): ?? 1. Patient will be independent with home exercise program after discontinued from Physical Therapy.?Progressing??12/17/18 *2. Pt will sit/drive 20 min??with Sx <??or = to 1-2??(At Eval: 09/23)??met 01/18/19 *3. Pt will stand??>10 min??with Sx <??or = to 1-04/26??(At Eval: 09/23)met 01/18/19 4.??Pt will perform bed mobility (scooting, rolling, supine to sit etc.)??with minimal Sx 1-2/10 5. Pt will walk (with walker) >10 min with burning??Sx < or = to??1-210 in her feet (not met 01-18-19) 6. Pt will get dressed in the morning with??Sx < or = to??1-2/10 ?? Certification Dates:??01/12/19 - 04/11/19 ?? Re-Certification: ?? 01/12/19 - 04/11/19 POC 2x/week [...] CERVICAL rotation 12/10/18 Recommendations/Communication: 100% lumbar extension 60% cervical extension, Continue treatment per PT POC. 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
--- OUTSIDE RECORDS SUMMARY | 2022-01-12 12:45 | XMS_ITS | Encounter Summary ---
:1955 Author Organization [facility] Address [address] [place] [address] Care Team Providers Name Role Phone Thalia Barron PA-C Primary Care Provider Unavailable Reason for Visit Reason Onset Date Comments ARM PAIN 12/31/2018 LEG PAIN 12/31/2018 BACK PAIN 12/31/2018 NECK PAIN 12/31/2018 Encounter Details Date Type Department Care Team Description 12/31/2018 Office Visit Physicians Prashanth and Cecilia Calloway, Post l aminectomy syndrome; Back Center Mechanical low back pain; [place] Cervical disc syndrome; [address] [place] Cervical spin al stenosis; Center, [address] Muscular deconditioning [place], [place] [id number] Social History Tobacco Use Types Packs/Day Years Used Date Smoking Tobacco: Never Alcohol Use Standard Drinks/Week Comments No 0 (1 standard drink = 0.6 oz pure alcoho l) Recovering alcoholic Sex Assigned at Date Recorded Not on file documented as of this encounter Patient Instructions Patient InstructionsCecilia Calloway MD - 12/31/2018 12:15 PM CDT Patient Visit Summary (follow up): Progress with weights: Lumbar extensors: Started at: 30 foot-pounds Now: 73 foot pounds Goal: 90 Cervical extensors: Started at: 60 inch-pounds Now: 171 inch pounds Goal: 225 Schedule physical therapy visits twice weekly or [...] program with the physical therapy. Follow up: 4 weeks. documented in this encounter Progress Notes Cecilia Calloway MD - 12/31/2018 12:15 PM CDT Yaz is here for recheck and reports the following changes: She seems positive about the program but also states that she has not seem much change since starting the program. However she goes on to report that she has had more energy and done more activities without any increase in pain. Yaz an unexpected increase in her pulse while doing her warm-up earlier this week. She denied anyassociated symptoms. It took a while but it eventually slowed back to normal. The therapist also noted that her abdominal girth that day was significantly larger than on her previous visit as evidencedby the fact that the neoprene wrap for the ice pack did not reach around her abdomen that day. Yaz has not noticed any increased swelling in her ankles and has not checked her weight to be able to speculate if she has increased fluid retention. She will be seeing her provider tomorrow because of the issues with racing heart and possible fluid retention. No new medications or health conditions reported. Patient is currently lifting 73 ft.-pounds for 20 reps in the lumbar extensor machine. At the start of rehab patient was lifting 30 ft.-pounds for 20 reps. Goal is 90 ft.-pounds for 15 - 20 reps. Patient is currently lifting 171 in.-pounds for 20 reps in the cervical extensor machine. At the start of rehab patient was lifting 60 in.-pounds for 20 reps. Goal is 225 in.-pounds for 15 - 20 reps. The following findings were noted on physical examination: Alert female in no acute distress. Head: Normocephalic and atraumatic Eyes: No jaundice. Ears: No large abnormalties noted on external surfaces of ears Face: No facial droop noted Lumbar Spine Musculoskeletal: She transferred from sit to stand independently. Gait: Still antalgic but slightly smoother with more upright posture. Neurologic Lower Extremities: Reflexes: 2+ and symmetric at knees and ankles. Toes downgoing. No sustained clonus. Coordination: Normal/intact Motor strength: 5/5 Straight leg raise: negative in the seated position. Cervical Spine/Neck: Inspection: normal. Cervical range of motion shows flexion to 0 centimeters chin to chest, extension to 20chin to chest,lateral bending to 30?? to the right and 25 degrees to the left and rotation to 70?? to the right and 60 degrees to the left. Spurling's test was negative. No obvious instability. Bilateral upper extremities: Normal to inspection and palpation. Normal muscle bulk and tone. Range of motion full. No obvious instability. Motor: 5/5 Neurologic Upper Extremities: Reflexes: 1+ and symmetric at biceps, triceps, and brachioradialis. . Coordination: Normal/intact Sensation: intact Long tract signs:none Pulmonary: Breathing unlabored. Abdominal exam: Unable to assess adequately for fluid wave due to body habitus. Tenderness reported with palpation diffusely but most marked in the left periumbilcal region. Skin: Normal to Inspection and palpation. Psychiatric: Orientation: Normal times 4 Mood/affect: Pleasant and appropriate. Established Problems, stable/improved: post laminectomy syndrome, mechanical low back pain, cervicaldisc syndrome, cervical spine pain, cervical spinal stenosis Further workup/testing/referrals: No particular imaging or diagnostics are needed immediately with regard to her neck and back pain, though this may be reconsidered depending on clinical trajectory. Reviewed with patient how her response to rehabilitation matches typical pattern at this stage. Because this patient continues to progress both objectively and subjectively, I feel further rehabilitation is indicated.?? I recommend continuation of physical therapy 2 times per week. Patient will follow-up: 4 weeks. Total time for the evaluation was 30 minutes today with greater than half spent [...] rehabilitation to maintain benefits. 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
--- OUTSIDE RECORDS SUMMARY | 2022-01-12 12:45 | XMS_ITS | Encounter Summary ---
:1955 Author Organization [facility] Address [address] [place] [address] Care Team Providers Name Role Phone Thalia [...] Thalia Barron, [facility] [place] [address] [place] [address], [address] [place] [address] [place] [address] Phone: Fax: Referral ID Status Reason Start Date Expiration Date Visits Requ ested Visits Authorized [id number] Closed 10/06/2018 01/05/[phone] Encounter Details Date Type Department Care Team Description 12/22/2018 Therapy Physicians Neck and Bubba Kwong, [facility] hanical low back pain (Primary Dx); Back Center [facility] jayson [facility] Cervical spine pain [address] [facility], [address] [facility] , [address] [place] [address] [place] [address] [phone] (Wo rk) Social History Tobacco Use Types Packs/Day Years Used Date Smoking Tobacco: Never Alcohol Use Standard Drinks/Week Comments No 0 (1 standard drink = 0.6 oz pure alcoho l) Recovering alcoholic Sex Assigned at Date Recorded Not on file documented as of this encounter Progress Notes Bubba Kwong PTA - 12/22/2018 11:15 AM CDT 12/22/2018 Visit # 13 Protocol: Neck (Acute, disc,stenosis) Back (Acute, Disc, adv out as lesley) Start: 1114a End: 1202p (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 Reason she does late mornings in clinic. Cervical Cervical 12/22/2018 Set 1 Ext % Max - Set [...] Kevin RPE - Left Rot % Max 70% Left Rot ROM 42 Left Rot Wgt 26 Left Rot Reps 20 Left Rot Kevin RPE 5 Right Rot % Max 70% Right Rot ROM 42 Right Rot Wgt 26 Right Rot Reps 20 Right Rot Kevin RPE some R roman catholic pain Objective Tests & Measures: Tests performed today (see reviewflowsheet for score and outcomes): : None Performed Today Warm Up: Movement Specific Training: Not Completed Mat Exercises Completed ICE: Back Lumbar Lumbar & Torso 12/22/2018 Set 1 Ext % Max 60% Set 1 Ext ROM 3-39 Set 1 Ext Wgt 42 Set 1 Ext Reps 25 Set 1 Ext Tul 90 Set 1 Ext Kevin RPE 5 self [id number] Set 2 Ext % Max - Set [...] Right Rot Kevin RPE - Therapeutic Exercise (32 min): Patient performed isolated lumbar extension exercise, [...] tasks Verbal cues instructed in proper form on Cervical Rotation machine to have good control and speed onall reps, instructed to avoid hitting the ends too hard and to help avoid headaches. Neuromuscular Re-Education (8 min): Patient performed isolated lumbar extension to decrease substitution patterns present with chronic pain, to retrain muscles for proper sequencing and improve muscle recruitment patterns to increase tolerance for sitting, standing, walking, bed mobility, lifting, personal care tasks and household tasks. Verbal cues needed for proper form and control on Lumbar Extension machine with instruction to avoidsubstitution with other muscle groups and to facilitate correct muscle firing sequence and to avoid momentum, improper form and too fast with reps. Auxillary Auxillary 12/22/2018 Abs Wgt Set 1 40 Abs Reps Set 1 20 Abs Wgt Set 2 40 Abs Reps Set 2 20 Glute Wgt Set 1 70 Glute Reps Set 1 - Glute Wgt Set 2 - Glute Reps Set 2 1 set Rows Wgt Set 1 50 Rows Reps Set 1 25 Rows Wgt Set 2 - Rows Reps Set 2 1 set Lats Wgt Set 1 50 Lats Reps Set 1 30 Lats Wgt Set 2 - Lats Reps Set 2 1 set Other Quads 35# 1x20 Hams 40# 1x20 HEP TA with standing posture and daily activities. Therapeutic Activities (8 min): Therapeutic Activities 12/22/2018 SITTING POSTURE - STANDING POSTURE Needs further training BASE OF SUPPORT Needs further training WEIGHT SHIFT Needs further training CORE EDUCATION - OTHER ACTIVITY Instructed in standing upright and improving form, knee ups and standing tall to stretch hip flexors to avoid forward flexion. Patient Education: Patient was instructed in correlation of strength and function to increase their understanding of the benefits related to completing the [facility] Rehab program Assessment: Yaz Multani tolerated treatment ok, right roman catholic pressure and nerve per pt bothered with right sided workout, better on left. Head restraint loose to pt tolerance. One set on auxiliary machines with heavier weight or more reps. Should improve as she gets stronger with less pain and more flexible with stretches. Observed form and speed on all reps to avoid substitution, properpositioning and cues as needed on form and speed on reps. Gives good effort in machines. Goals: Short Term Goals (4-6 weeks): *1. Pt will sit/drive 10 min??with Sx <??or = to -06/24??(At Eval: 09/23)?MET 12/01/18 *2. Pt will stand??>3 [...] over the last couple days 12/17/18 ?? Fdc Goals (>6 weeks): 1. Patient will be [...] CERVICAL rotation 12/10/18 Recommendations/Communication: 100% cervical extension and 80% thoracic rotation at 22# next. Continue treatment per PT POC. 1-2 sets on auxiliary machines if HEP or lifting review needed. Total timed code min: 48 Total treatment time: 48 Bubba Kwong PTA 12/22/2018, 2:11 PM documented in this encounter Plan of Treatment Not on filedocumented as of this encounter Visit Diagnoses Diagnosis Mechanical low back pain - Primary Lumbago Cervical spine pain Cervicalgia documented in this encounter Care Teams Marine Propulsion Technician Relationship Specialty Start Date End Date Thalia Barron PA-C PCP - General Physician Wood And Hardware Outfitter 10/06/18 documented as of this encounter
--- OUTSIDE RECORDS SUMMARY | 2022-01-12 12:45 | XMS_ITS | Encounter Summary ---
:1955 Author Organization [facility] Address [address] [address] Care Team Providers Name Role Phone Denise Harris MD Primary Care Provider Encounter Details Date Type Department Care Team Description 07/15/2010 PN Conversion Only CONVERSION CONVERSION Kaylah Harris MD [address] [place], [place] [address] (Wo rk) Social History Tobacco Use Types [...] on filedocumented in this encounter Care Teams Mortgage Loan Processing Clerk Relationship Specialty Start Date End Date Denise Harris MD PCP - General 06/17/10 10/05/[address] [place] [address] documented as of this encounter
[2022-01-12 12:46] LABS: Troponin, Point-of-Care* 0.01 ng/ml (0.01-0.04)
--- OUTSIDE RECORDS SUMMARY | 2022-01-12 12:46 | XMS_ITS | Encounter Summary ---
:1955 Author Organization [facility] Address [address] [address] Care Team Providers Name Role Phone Denise Harris MD Primary Care Provider Encounter Details Date Type Department Care Team Description 02/02/2001 Therapy Roman Catholic Physical T herAnna Cabrera [address] [place] [address] Social History Tobacco Use Types Packs/Day Years Used Date Smoking Tobacco: Never Assessed Sex Assigned at Date Recorded Not on file documented as of this encounter Plan of Treatment Not on filedocumented as of this encounter Visit Diagnoses Not on filedocumented in this encounter Care Teams Professor Of Archaeology Relationship Specialty Start Date End Date Denise Harris MD PCP - General 06/17/10 10/05/[address] [place] [address] documented as of this encounter
--- OUTSIDE RECORDS SUMMARY | 2022-01-12 12:46 | XMS_ITS | Encounter Summary ---
:1955 Author Organization [facility] Address [address], [place] [address] Care Team Providers Name Role Phone Denise Harris MD Primary Care Provider Encounter Details Date Type Department Care Team Description 12/08/2002 Therapy Kizzy Erazo l Therapy Anna Mohan [address] [place] [address] Social History Tobacco Use Types Packs/Day Years Used Date Smoking Tobacco: Never Assessed Sex Assigned at Date Recorded Not on file documented as of this encounter Plan of Treatment Not on filedocumented as of this encounter Visit Diagnoses Not on filedocumented in this encounter Care Teams Production Control Supervisor Relationship Specialty Start Date End Date Denise Harris MD PCP - General 06/17/10 10/[address] [place] [address] documented as of this encounter
--- OUTSIDE RECORDS SUMMARY | 2022-01-12 12:46 | XMS_ITS | Encounter Summary ---
:1955 Author Organization [facility] Address [address], [place] [address] Care Team Providers Name Role Phone Denise Harris MD Primary Care Provider Encounter Details Date Type Department Care Team Description 06/08/2003 Therapy Kizzy Erazo l Therapy Anna Mohan [address] [place] [address] Social History Tobacco Use Types Packs/Day Years Used Date Smoking Tobacco: Never Assessed Sex Assigned at Date Recorded Not on file documented as of this encounter Plan of Treatment Not on filedocumented as of this encounter Visit Diagnoses Not on filedocumented in this encounter Care Teams Quality Eng Relationship Specialty Start Date End Date Denise Harris MD PCP - General 06/17/10 10/05/[address] [place] [address] documented as of this encounter
--- OUTSIDE RECORDS SUMMARY | 2022-01-12 12:46 | XMS_ITS | Encounter Summary ---
:1955 Author Organization [facility] Address [address], [place] [address] Care Team Providers Name Role Phone Denise Harris MD Primary Care Provider Encounter Details Date Type Department Care Team Description 02/25/2000 PN Conversion Only [facility] Roxana Shi DO [facility] [id number] [place] [address] [place] [address] [id number] [place], [place] [phone] (Wo rk) Social History Tobacco Use Types Packs/Day Years Used Date Smoking Tobacco: Never Assessed Sex Assigned at Date Recorded Not on file documented as of this encounter Progress Notes Bubba Shi DO - 02/25/2000 12:01 AM CST Progress Notes signed by Bubba Shi DO at 02/27/00 0727 Author: Bubba Shi DO Service: (none) Author Type: Physician Filed: 07/04/101946 Note Time: 02/25/00 0001 Status: Signed Hone Operator: Bubba Shi DO (Physician) IMPRESSION: Fibromyalgia. Bilateral knee pain. Depression. Left ankle sprain. Increased sugar cravings. Abscess, left buttocks. 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 Also she had some new issues of left ankle sprain, sugar cravings. Also abscess, left buttocks, increased infections, and less energy. Overall she says she is doing real well after telling me she did not have any chief complaint and did not mention these other things. She is now working 30 hours a week and there is a lot of stress there. She enjoys her job. 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 A lot of sugar at work, also with the holidays. She is consuming more sugar. 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 She is doing garlic and these things seem to be getting better. Sprained her ankle in December. Still some tenderness in the left lateral aspect of the leg and intermittent swelling in the left ankle. Doing physical therapy. Does not feel depressed. Orthotics are helping out the ankle. Says she sprained her ankle, she is walking funny, and her low back has flared up and physical therapy seems to be helping. Overall everything seems to be getting better. MEDICATIONS: See chart. Vitamin E, C, zinc. Stopped doing digestive support. ALLERGIES: ANTIBIOTICS. OBJECTIVE: Wt: Not done. Mental status is good. Good interaction between her and her . Moves well. No obvious ankle sprain. Looking at the left ankle, she has a little bit of fullness on the left lateral aspect. napper tender to palpation in the left proximal lateral leg. Good range of motion. Good pulses. Normal skin. On the left medial aspect of the buttocks is a small abscess, looks like it has been draining. Looks about the size of a pea. Nothing to drain. Really no erythema except for just right over the area that is drained. HEENT exam is normal. Rest of skin exam, joints are normal. Rest of muscle exam is normal. ASSESSMENT: 1. Fibromyalgia. 2. Bilateral knee pain. 3. Depression. 4. Left ankle sprain. 5. Increased sugar cravings. 6. Abscess, left buttocks. 7. Decreased energy. PLAN: Follow up in Physical Therapy for the ankle. Also recommend Vernon Martin, neuromuscular therapist, for the ankle and leg pain, and also back pain. Check with insurance on coverage. Recommend once a week up to five or six months as needed. I suspect if we eliminate the sugar, her immune system will probably increase, and she will have less infections, she will have more energy. She is going to eliminate the sugars from her workplace. She is also going to try some 5-hydroxy tryptophan which she has at home. Be aware of interaction between Jaun and that. She has had no problems in the past. We are going to do warm to hot sitz baths for the buttocks. There is nothing to drain, and I think that will do well. Start time of this visit was 14:05, completion time 14:37, 32 minutes of total time with 20 minutes patient education and discussion. We are going to follow up in about 3-4 months plus as needed. Overall told her to keep up the good work. [id number] C: DOCUMENT: [id number] ECTIONS TECHNICIAN Conversion, [facility] - 12/13/1999 12:01 AM CDT Progress Notes signed by at 04/03/02 1747 Author: Lamine Conversion Service: (none) Author Type: (none) Filed: 07/04/10 9695 Note Time: 12/13/99 0001 Status: Signed Hone Operator: Lamine Powers IMPRESSION: Obstructive sleep apnea, well treated. Difficulty with sleep maintenance. SUBJECTIVE: Yaz comes in for follow up. She in general has been doing well. Her fibromyalgia is under very good control. She is starting a new job next week. She is wearing her CPAP. She is in the last three weeks noticing a trend towards elephant keeper awakening. She goes to bed between 10 and 10:30. She reads for 1/2 hour, meditates for 1/2 hour and then falls asleep. She does use Trazodone 25 mg. She rarely takes melatonin. She finds herself waking at 5 a.m. to use the bathroom. Then, she cannot seem to fall back asleep. She could sleep until 7. Prior to three weeks ago, she was having no difficulty with this elephant keeper awakening. MEDICATIONS: Paxil, Trazodone, MSM. ALLERGY: ANTIBIOTICS. OBJECTIVE: BP: 122/76. Wt: 224. ASSESSMENT: Obstructive sleep apnea, well treated. Difficulty with sleep maintenance. PLAN: We did talk about sleep hygiene issues. I am not quite sure why she is waking at 5 and unable to fall back asleep. She is going to eliminate her cup of tea that she has in the evenings, though it is noncaffeinated, we are going to add a humidifier to her CPAP machine, and she is going to remove the clock from her room and work on behavioral techniques to fall back asleep. I do think that the stress of a new job may be playing a part in this, and we will talk on the phone 6-8 weeks from now. [id number] C: DOCUMENT: [id number] SCHEDULED RESOURCE: JACOBY HARDIN/TIMBER DEADENER ECTIONS TECHNICIAN Bubba Shi DO - 11/28/1999 12:01 AM CDT Progress Notes signed by Bubba Shi DO at 12/14/991955 Author: Bubba Shi DO Service: (none) Author Type: Physician Filed: 07/04/10 9799 Note Time: 11/28/99 0001 Status: Signed Hone Operator: Bubba Shi DO (Physician) IMPRESSION: Fibromyalgia. Fatigue. Resolved chest pain. Improved sleep apnea. History of Hunter vaginitis. SUBJECTIVE: This is a 44-year-old, white female, three-month followup for her fibromyalgia, fatigue, chest pain, sleep apnea, and Hunter vaginitis. Overall, she says she is doing great. Just went seven weeks camping. First week back, she has had some back pain. Fibromyalgia is doing tremendous. She gave up a lot of her jobs and stress. This seemed to help. She has also made some diet changes. She is doing the counseling. 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 A whole lot more energy. Fibromyalgia is not as bad. Chest pain has resolved. The CPAP has helped tremendously as far as the sleep apnea. She said she could not be happier. PAST MEDICAL HISTORY: Still . Working on her masters. FAMILY HISTORY: Noncontributory. MEDICATIONS: Trazodone, Paxil, MSM, Vitalite. ALLERGIES: ANTIBIOTICS, NUMEROUS. OBJECTIVE: Wt: 223, down 13 lb. first visit February of 1999. BP: 118/74. P: 78. R: 18. Mental status is great. Judgment and insight are good. Oriented time, place, and person. Recent and remote memory good. Mood and affect are nondepressed, nonanxious, nonagitated. She is the most excited I have seen her in a while. Still overweight. Normal grooming. Conjunctivae and eyelids normal. Pupils are equal and reactive to light. External ears and nose are normal. Ear canals and TMs are normal. Nasal mucosa normal. Lips, teeth and gums normal. Oral and posterior pharynx normal. Neck - no masses, thyroid not enlarged, nontender. Respiratory effort is good. Lungs clear. Heart - regular rate and rhythm, no murmur. Abdomen is slightly obese. No masses or tenderness. Liver and spleen not enlarged, nontender, but kind of tough to tell. No hernias. No cervical adenopathy. No inguinal adenopathy. Normal gait. Skin - no rashes, no induration. Reflexes bilaterally equal. ASSESSMENT: 1. Fibromyalgia. 2. Fatigue. 3. Resolved chest pain. 4. Improved sleep apnea. 5. History of Hunter vaginitis. PLAN: I told Yaz to keep up the good work. We are going to follow up in about 4-6 months. Talked about the pros and cons on the intestinal Hunter. No new meds or vitamins. [id number] C: DOCUMENT: [id number] Bubba Shi DO - 09/12/1999 12:01 AM CDT Progress Notes signed by Bubba Shi DO at 09/14/99 0746 Author: Bubba Shi DO Service: (none) Author Type: Physician Filed: 07/04/10 1709 Note Time: 09/12/99 0001 Status: Signed Hone Operator: Bubba Shi DO (Physician) IMPRESSION: Fibromyalgia, insomnia, chronic left sacroiliac pain, restless legs, weight loss. SUBJECTIVE: Patient is a 44-year-old white female at a three month followup for her chronic issues of fibromyalgia, restless legs, insomnia, chronic low back pain, upper back pain, and weight gain. These are all chronic issues. She feels a lot better. She loves the CPAP. It has helped essentially resolve the restless legs. Fibromyalgia is a lot better. The fact that she is sleeping just means she is more rested in the morning. The only thing that is bothering her is driving greater then 60 minutes. This increases her low back pain, especially over her left SI area. She is working with Anna in Physical Therapy on that. No radiculopathy. The other thing that she has done to drop 35 pounds is decreased her sugar, wheat, and yeast. She repeated her stool culture and that showed no intestinal hunter. She did that through a physician in [place], Dr. Childress. She had done herbal treatment on her own. Still a lot of upper back pain. She is also doing some homeopathy. REVIEW OF SYSTEMS: Constitutionally: Overall she says she is doing a lot better. No problem with the eyes. Ear, nose, and throat is good. Respiratory: Really never had any sleep apnea. Irritable bowel essentially is doing real well. MEDICATIONS: Trazodone 50 mg a day, Paxil 20 mg a day, Vitalee vitamins, calcium, glucosamine, MSN, and acidophilus. ALLERGIES: NUMEROUS ANTIBIOTICS. OBJECTIVE: WT: 216. P: 64. R: 15. BP: 110/70. Ht: 5'10 Weight at first visit was 235 at [place] time of last year. Normal grooming. She looks great. Very happy, upbeat. Good judgement and insight. Oriented to time, place, and person. Recent and remote memory is good. Mood and affect is nondepressed, nonanxious. (She does have a history of depression). Eyelids and conjunctivae normal. External ears normal. Neck has no masses, good range of motion. A lot of myofascial tension still up in the upper back and neck area. Thyroid is not enlarged, nontender. Respiratory effort is good. Lungs are clear. Heart regular rate and rhythm, no murmur. No edema in the extremities. Abdomen is somewhat bloated, but soft. No masses or tenderness. Liver and spleen not enlarged, nontender. No hernias. No cervical adenopathy, no inguinal adenopathy. Normal gait and station. Good range of motion of the low back and also the upper back area. A lot of myofascial tension in the low back area. Reflexes in lower extremities and upper extremities are bilaterally are equal and normal. Skin has no rashes. Kind of tender over the left SI area. No real trigger point tenderness. ASSESSMENT: 1. Fibromyalgia. 2. Insomnia. 3. Chronic left sacroiliac pain. 4. Restless legs. 5. Weight loss. PLAN: Told Yaz to keep up the good work. We are going to start some digestive enzymes again. And, we will followup after her summer vacation. [id number] C: DOCUMENT: [id number] Jacoby Hardin APRN, [facility] - 08/29/1999 12:01 AM CDT Progress Notes signed by at 10/21/00 6719 Author: VANESSA Boland Service: (none) Author Type: Nurse Practitioner Filed: 07/04/10 9925 Note Time: 08/29/99 0001 Status: Signed Hone Operator: VANESSA Boland (Nurse Practitioner) IMPRESSION: Mild obstructive sleep apnea. SUBJECTIVE: Yaz comes in today after a month trial of C-PAP. She has done wonderfully and she loves it. She feels she is sleeping better. She has more energy during the day. She is taking less naps. In the past she has had a difficult time staying awake in order to do her meditation. She has had no trouble with that now. She is very happy. Unfortunately I cannot download her C-PAP machine as our software is not working. She would like to try and cut back on her trazodone. She still has restless legs. She does not want to treat it with medication and it has not been much of a problem for her. Medications Paxil, trazodone, . ALLERGIES NONE. OBJECTIVE: BP: 114/70 P: 82 Wt: 223 ASSESSMENT: Mild obstructive sleep apnea. PLAN: Yaz is going to go to [facility] will download the C-PAP machine. Will also try and make some minor improvements on her C-PAP mask. She would like to use C-PAP fci. She is going to continue to work on her diet modification. I think if we follow her up sometime late November or December will reevaluate where we are. At this point she is significantly improved. I do not think she has a primary disorder of daytime hypersomnolence and will switch her over to regular C-PAP and see how things go. CC: BUBBA SHI DO DW:[id number] C: DOCUMENT: [id number] ECTIONS TECHNICIAN Jacoby Hardin APRN, CNP - 07/30/1999 12:01 AM CDT Progress Notes signed by at 10/21/00 3363 Author: VANESSA Boland Service: (none) Author Type: Nurse Practitioner Filed: 07/04/10 8205 Note Time: 07/30/99 0001 Status: Signed Hone Operator: VANESSA Boland (Nurse Practitioner) IMPRESSION: Mild sleep apnea. Mild nocturnal periodic limb movements. Restless leg syndrome. SUBJECTIVE: Yaz comes in today for followup of her sleep study. She was found to have mild apnea; her RDI was 11. She also had mildly elevated nocturnal periodic limb movements. Her arousal index is 8. She felt that this was not an exact representation of her night sleep and that, in general, her sleep has been improving significantly the last month or so. She is down to taking 50 mg of Trazodone q. h.s. Her pain is under much better control as of late. She did have some mild hypersomnolence documented by a mean sleep latency of seven minutes. MEDICATIONS: 20 mg of Paxil, 50 mg of Trazodone, MSM 2 teaspoons. ALLERGIES: NONE. OBJECTIVE: BP1: 118/68. WT: 226, which is down 14 pounds from her sleep study. Sleep study June 18, 1999: She slept six hours. Sleep efficiency 75%. Sleep latency 18 minutes. REM latency 325. Sleep architecture with slightly reduced REM sleep. 441 periodic limb movements. The arousal index is 8. RDI is 11, consisting of 17 apneas, 47 hypopneas. Baseline oxygen saturation 95%, the low 83%. 50 unknown arousals. The unknown arousal index is 8. MSLT completed the next day: mean sleep latency 7 minutes. No sleep-onset REM episodes noted. ASSESSMENT: Mild sleep apnea. Mild nocturnal periodic limb movements. Restless leg syndrome. PLAN: Yaz's sleep study was reviewed in detail. At this point, we are going to start with CPAP. She will use a virtuoso low pressure of 5, high pressure of 15; will download in a month. Her restless legs have not been a terrible problem for her, though we did talk about treating them medically; though, we definitely want to start with one variable at a time. CC: BUBBA SHI DO DW:[id number] C: DOCUMENT: [id number] Nicko Phillips MBBS - 06/18/1999 12:01 AM CDT Progress Notes signed by CAROLIN Cole at 10/25/00 1528 Author: CAROLIN Cole Service: (none) Author Type: Physician Filed: 07/04/10 1549 Note Time: 06/18/99 0001 Status: Signed Hone Operator: CAROLIN Cole (Physician) IMPRESSION: Loud snoring, witnessed apneas, and difficulty initiating and maintaining sleep. SUBJECTIVE: A 44-year-old who has been referred for obstructive sleep apnea and restless leg syndrome. The patient presents with a history that she has been told by her that she has loud snoring and stops breathing during the night. She also complains of difficulty in initiating and maintaining sleep along with intermittent symptoms of restless leg syndrome. She has history of long-standing depression and two suicidal attempts in the past. 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 She did go through a severe bout of depression following that but has recovered somewhat from it. She denies any depression at present. She states at present she goes to bed between 11 and 12 and reads for half an hour and then it takes an hour to fall asleep. She wakes up anywhere between 9 and 10 in the morning. She does estimate that she wakes up four to five times during the night but returns back to sleep. Her schedule on weekends is the same. She does take naps approximately twice a week lasting anywhere from half an hour to two hours. She also complains of daytime sleepiness, especially while driving. She also complains of sleepiness while watching TV occasionally and at meetings when she used to work. There has been a past history of sleep paralysis, especially when she takes naps during the daytime. She also has woken up in a panic which she thinks is because of night terrors. PAST MEDICAL HISTORY: Significant for fibromyalgia diagnosed in October of 1997, depression. ALLERGIES: ANTIBIOTICS. SOCIAL HISTORY: She quit smoking 12 years ago. She gives a [id number] history of smoking. She is a recovering alcoholic, quitting alcohol about 12 to 14 years ago. MEDICATIONS: Include garlic oil, , Paxil, electrolyte, echinacea, melatonin which she has taken 5 HDP, trazodone 50 mg, and Prevacid. She also takes kava kava and . OBJECTIVE: BP1: 114/82 Neck Circumference: 15-1/2 Wt: 239 No cyanosis or clubbing of the nails. HEENT examination shows a large uvula with a deviated nasal septum towards the left. No sinus tenderness. No JVD is not raised. Thyroid is not enlarged. LUNG EXAMINATION: Air entry is equal on both sides. No rales or rhonchi are auscultated. CARDIOVASCULAR SYSTEM: First and second heart sounds are normal. No gallops or murmurs heard. ABDOMEN: Liver and spleen are not enlarged. NEUROLOGICAL EXAMINATION: There is no evidence of focal deficit. The patient did complete the [place] Sleepiness Scale and the score was 14. The one which was filled out by the bed partner, the score was 8. The Lazar Depression Inventory Scale score was 20. The patient only completed the sleep logs for two nights. ASSESSMENT: We have a 44 year old presenting with symptoms of loud snoring, witnessed apneas, and difficulty initiating and maintaining sleep. She also gives history of restless legs and has underlying severe depression. Based on her sleep history and physical findings there is a good chance that the patient will have obstructive sleep apnea. This probably will explain her daytime sleepiness and may improve her sleep quality at night. Again, I think her difficulty in initiating sleep is because of her underlying depression and probably is aggravated by intermittent restless leg symptoms. PLAN: We will schedule the patient for an overnight polysomnography followed by multiple sleep latency tests if necessary. We will titrate her on CPAP if she has apnea and we will offer her the CPAP to use at home the next day after the study. She will followup with Jacoby Hardin, nurse practitioner, after the sleep study is completed and at that time will make further recommendations regarding treatment. As far as improving her insomnia, it may be reasonable to consider switching her to a more sedating antidepressant such as Serzone or Celexa or use maybe a higher dose of . I said all these changes will be made by her psychiatrist, Dr. Leonardo Carias. CC: BUBBA SHI DO SAK:[id number] C: DOCUMENT: [id number] Bubba Shi DO - 06/06/1999 12:01 AM CST Progress Notes signed by Bubba Shi DO at 06/08/99 1607 Author: Bubba Shi DO Service: (none) Author Type: Physician Filed: 07/04/10 1539 Note Time: 06/06/99 0001 Status: Signed Hone Operator: Bubba Shi DO (Physician) IMPRESSION: Fibromyalgia. Acute exacerbation of chronic back pain. SUBJECTIVE: The patient is a 44-year-old white female at a five week followup for osteopathic/nutritional approach for fibromyalgia, bilateral knee pain and fibromyalgia and fatigue. Overall said she is doing a lot better. Less fatigue. She has been doing a lot of physical therapy and her back actually went out on her. She kind of had a flareup of her chronic back pain. No radiculopathy. She is on her diet. She went on a Hunter diet since she has had chronic yeast infections all her life since the age of 13 or 14. Chronic vaginitis for years. She is off all sugar. She is wondering about sleep apnea. Her says she snores and she does stop breathing, and she never had evaluation for that. She is also complaining of a lot of dry eyes and mucus. Review of her microbiology aspect of the CDSA showed no Lactobacillus and a 3+ Hunter albicans. Fibromyalgia is about the same. MEDICATIONS: Paxil and trazodone, multivitamin; Kava Kava and Melatonin. ALLERGIES: NUMEROUS ANTIBIOTICS. OBJECTIVE: BP: 120/78. Wt: 240 lbs. Mental status is appropriate. No other exam done. ASSESSMENT: 1. Fibromyalgia. 2. Acute exacerbation of chronic back pain. 3. Hunter discussion. 4. Possible sleep apnea. PLAN: Refer to pulmonary lab for sleep studies and/or evaluation. Continue physical therapy for the back pain. Try some digestive support. Check ALT and AST. This will be done since we are going to use antifungal drugs. Discussed the pros and cons on the Hunter aspect. Start some acidophilus. She is on some garlic and it does show a moderate sensitivity for Hunter. We are going to go ahead and do that for six weeks and then at her own cost she is going to repeat the microbiology aspect. Advanced Beneficiary Notice. If still positive, will go ahead and try a prescription antifungal. She is going to [place] for a couple of weeks in June. She will follow up with me after July 24 when she returns and we will see what the lab tests show at that time. Total time was 24 minutes with 15 minutes of patient education. Start time: 1146. Completion time: 12:10. KTW:[id number] C: DOCUMENT: [id number] ECTIONS TECHNICIAN Conversion, [facility] - 05/10/1999 12:01 AM CST Phone Note signed by at 05/10/99 0922 Author: Lamine Conversion Service: (none) Author Type: (none) Filed: 07/04/10 1515 Note Time: 05/10/992051 Status: Signed Hone Operator: Lamine Powers IMPRESSION: Referral TO: BUBBA SHI FROM: MARINE HUIZAR [id number] 05/10/99 * PROVIDER MESSAGE: ROUTINE * 09:22AM * *WITHIN 4 HOURS * MESSAGE: Pt was referred to Derm in * HOME PHONE:[phone] * [place] and has forgotten the * CONTACT PHONE:[phone] * name of the Dr. Burnette went through the list but none sounded familiar to her. Didn't see anything on the on line chart. please advise SUBJECTIVE: ALLERGIES/SENSITIVITIES... Abx give her yeast infections 04/02/99 CURRENT MEDICATIONS... Paxil 20, herbal stuff at night, 04/02/99 PERTINENT PAST HISTORY... Fibromyalgia, otherwise healthy 04/02/99 WEIGHT: STATUS IS UNKNOWN. NURSING STATUS IS UNKNOWN. ASSESSMENT: Referral PLAN: DISPOSITION: NO DISPOSITION GIVEN CALL BY MARINE HUIZAR 05/10/1999 09:20AM [id number] ADDENDUM: ECTIONS TECHNICIAN Conversion, [facility] - 05/03/1999 12:01 AM CST Phone Note signed by at 05/03/99 1897 Author: Lamine Conversion Service: (none) Author Type: (none) Filed: 07/04/10 1508 Note Time: 05/03/99 0001 Status: Signed Hone Operator: Lamine Powers IMPRESSION: Provider call back TO: BUBBA SHI FROM: RUTHIE RAM [id number] 05/03/99 * PROVIDER MESSAGE: ROUTINE * 04:34PM * *WITHIN 4 HOURS * MESSAGE: Patient requests nurse call * HOME PHONE:[phone] * back. Aware of unavailable. * CONTACT PHONE:[phone] * SUBJECTIVE: * Yaz * CHIEF CONCERN... patient requests 's nurse to call back re: Patient has a stool test that need to send in and including a form. There are some options in the form that patient must selects, but unsure which one. Requests nurse call back to assist patient to fill out the form. ALLERGIES/SENSITIVITIES... Abx give her yeast infections 04/02/99 CURRENT MEDICATIONS... Paxil 20, herbal stuff at night, 04/02/99 PERTINENT PAST HISTORY... Fibromyalgia,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
--- OUTSIDE RECORDS SUMMARY | 2022-01-12 12:46 | XMS_ITS | Encounter Summary ---
:1955 Author Organization [facility] Address [address] [address] Care Team Providers Name Role Phone Denise Harris MD Primary Care Provider Encounter Details Date Type Department Care Team Description 04/25/2009 PN Conversion Only OTHER CONVERSION [address] [place] [address] Social History Tobacco Use Types Packs/Day Years Used Date Smoking Tobacco: Former Alcohol Use Standard Drinks/Week Comments No 0 (1 standard drink = 0.6 oz pure alcoho l) Recovering alcoholic Sex Assigned at Date Recorded Not on file documented as of this encounter Plan of Treatment Not on filedocumented as of this encounter Visit Diagnoses Not on filedocumented in this encounter Care Teams Radar Signal Processing Engineer Relationship Specialty Start Date End Date Denise Harris MD PCP - General 06/17/10 10/05/18[address] [facility] [address] documented as of this encounter
--- OUTSIDE RECORDS SUMMARY | 2022-01-12 12:46 | XMS_ITS | Encounter Summary ---
:1955 [facility] Address [address] [place] [address] Care Team Providers Name Role Phone Denise Harris MD Primary Care Provider Encounter Details Date Type Department Care Team Description 12/03/1999 Therapy [place] [address] [place], [place] [id number] (Wo rk) Social History Tobacco Use Types Packs/Day Years Used Date Smoking Tobacco: Never Assessed Sex Assigned at Date Recorded Not on file documented as of this encounter Plan of Treatment Not on filedocumented as of this encounter Visit Diagnoses Not on filedocumented in this encounter Care Teams Medical Record Transcriber Relationship Specialty Start Date End Date Denise Harris MD PCP - General 06/17/10 10/05/[address] [place] [address] documented as of this encounter
--- OUTSIDE RECORDS SUMMARY | 2022-01-12 12:46 | XMS_ITS | Encounter Summary ---
:1955 Author Organization [facility] Address [address] [place] [address] Care Team Providers Name Role Phone Denise Harris MD Primary Care Provider Encounter Details Date Type Department Care Team Description 01/27/2006 Office Visit [facility] Joshua Zaidi MD [address] [facility] [address] [facility] [place] [address] [place] [address] [phone] (Wo rk) Social History Tobacco Use Types Packs/Day Years Used Date Smoking Tobacco: Never Assessed Sex Assigned at Date Recorded Not on file documented as of this encounter Progress Notes Joshua Zaidi MD - 01/27/2006 12:01 AM CST Progress Notes signed by Joshua Zaidi MD at 02/12/06 1203 Author: Joshua Zaidi MD Service: (none) Author Type: Physician Filed: 07/06/10 1527 Note Time: 01/27/06 0001 Status: Signed Shipwright: Joshua Zaidi MD (Physician) NAME: FANTA COUGHLIN MR#: [id number] ACCT: [id number] VISIT: [id number] DICTATING CLINICIAN: JOSHUA ZAIDI MD JOB: [id number] LOC: 3719 CLINIC PROGRESS NOTE DATE OF VISIT: 01/27/2006 Corrected Copy: 01/29/06 [facility] SUBJECTIVE: : 1955Candy Mukherjee is a 50-year-old patient of Dr. Joshua Zaidi'flor that is coming in today for recheck of the knees and also evaluation of her right wrist. She underwent a right knee arthroscopy with Dr. Zaidi for a partial medial meniscectomy and loose body removal on 01/08/05. That has gone well. She has been asymptomatic with this. However, she did have a herniated disk at L3-L4. She underwent surgery for this on 05/2002. Since her surgery, she has continued to have bilateral burning in both knees. She notes the increased burning when going up or down the stairs and getting up from a chair. She also notes pins and needles to the calves of both legs. This has gone on in conjunction with her back problems. However, she notes she has increased knee pain when she works out at the gym, which includes the cardio activities such as the elliptical runner. She has not done any formal physical therapy since her surgery. However, she does work out with a sports athletic trainer at the gym. She also comes in today for evaluation of the right wrist. A couple weeks ago, she sustained a cat bite to her right thumb and wrist. She was treated by her general practitioner with antibiotics. It has not shown any signs of infection. She also saw this provider for a rheumatoid workup. This workup is pending, though the sed rate is back, and the patient reports that this is normal. She has continued to note swelling over the anatomical snuffbox. This radiates down into the thenar eminence. No numbness or tingling into the fingers or hand. OBJECTIVE: Fanta is a very alert, cooperative woman in no apparent distress. She is sitting comfortably in the exam room. The skin over her wrist shows no signs of abnormality. She does have some swelling in this area. She has good movement of all her digits on the right hand. Strength is 5/5. Tenderness to palpation over the thumb metacarpal. However, range of motion is within normal limits. ASSESSMENT: 1. Disk herniation at 3-4 with bilateral radiation down the legs. 2. Right wrist arthritis. PLAN: 1. Fanta has been started on a regimen of Naprosyn by her family practice workup. She is to continue with the Naprosyn. 2. She was fitted with a cock-up wrist splint with a thumb spica. 3. She is encouraged to ice this area after activities. 4. She is to be further evaluated by her surgeon, Eris Melendrez, who did the back surgery back in May. Should she have any further problems, she is encouraged to follow up in clinic. Dictated by Scarlett Capone PA-C for Joshua Zaidi MD JLB:[id number] C: 01/29/06 13:38 DOCUMENT: [id number] REPAIRER HELPER documented in this encounter Plan of Treatment Not on filedocumented as of this encounter Visit Diagnoses Not on filedocumented in this encounter Care Teams Landing Support Specialist Relationship Specialty Start Date End Date Denise Harris MD PCP - General 06/17/10 10/05/18[address] [place] [address] documented as of this encounter
--- OUTSIDE RECORDS SUMMARY | 2022-01-12 12:46 | XMS_ITS | Encounter Summary ---
:1955 Author Organization [employer] Address [address], [place] [address] Care Team Providers Name Role Phone Unassigned, Provider Primary Care Provider Unavailable Reason for Visit Reason Onset Date Comments MEDICATION REVIEW AND EDUCATION 07/06/2007 Encounter Details Date Type Department Care Team Description 07/06/2007 Telephone [facility] Vianney Jauregui, MEDICATION REVIEW AND [address] [place] [address] [address] [phone] [place], [place] [address] [phone] (Wo rk) Social History Tobacco Use Types Packs/Day Years Used Date Smoking Tobacco: Former Alcohol Use Standard Drinks/Week Comments No 0 (1 standard drink = 0.6 oz pure alcoho l) Recovering alcoholic Sex Assigned at Date Recorded Not on file documented as of this encounter Patient Instructions Patient InstructionsJuventino Vianney - 07/06/2007 11:16 AM CDT Yaz, It was a pleasure talking with you today. Below is a summary of your phone conversation. Please feelfree to call me with any questions or concerns. 1) I believe it would be okay to stop CoQ-10, L-lysine, glucosamine-chondroitin and echinacea to help limit the number of medications you are taking and reduce cost. If you notice increased joint pain after being off glucosamine-chondroitin for 3-4 weeks, then I would recommend restarting it. 2) It is safe to adjust your Cymbalta dose using the 30mg capsules. 3) Ultram can interact with Remeron, Cymbalta and trazodone increasing your risk of serotonin syndrome, this should not be a problem when using Utram as needed vs daily. Symptoms of serotonin syndrome include restlessness, hallucinations, loss of coordination, fast heart beat, rapid changes in blood pressure, increased body temperature, overreactive reflexes, nausea, vomiting, and diarrhea. 4) I think the plan that you and Dr. Alejandra have in place for your pain therapy is perfect. 5) I would not stop Citracal at this time. If you constipation continues after being off Utram dailyfor a few weeks then consider stopping the Citracal to see if the constipation further improves. 6) Make an appointment with Medication Therapy Management Clinical Pharmacist as needed for follow-up evaluation. Please call me at [phone], if you have questions. Thank you, Vianney Jauregui, Pharm D documented in this encounter Nursing Notes Vianney Jauregui - 07/06/2007 4:30 PM CDT S Yaz Ha Multani was referred to [facility]ication [facility] Management Services by insurance for medication review/education. Yaz is contacted today via telephone. She is ready with all her currentmedications in front of her. Yaz has questions about medication times of administration and wouldlike to verify no drug interactions are present. She would also like to reduce the number of medications she is taking and is willing to consider adjustments to her supplements as well. Currently she is working with her pain physcian to adjust her pain medications. She is tapering off of Ultram CR after which she will increase her Cymbalta. Yaz is dealing with severe constipation from the Ultram and is currently taking Senna and docusate sodium which do help. She wonders if she should stop her calcium supplement as well. Yaz resports good compliance with her current medications. O ALLERGIES: No Known Allergies. PROBLEM LIST: chronic pain, arthritis, HTN, depression and constipation History Tobacco Use ??? Quit ASPIRIN USE: No No vitals taken, phone consult No labs available, non-[facility] patient A Patient demonstrates good compliance with medications Total of drug therapy problem identified and to be resolved: 1 1. Medical condition and drug therapy involved: pain and Ultram Drug therapy problem: clinically relevant drug interaction present with Remeron, Cymbalta and trazodone, concurrent use may increase the risk of serotonin syndrome. Patient denies symptoms of serotoninsyndrome including restlessness, hallucinations, loss of coordination, fast heart beat, rapid changes in blood pressure, increased body temperature, overreactive reflexes, nausea, vomiting, and diarrhea. P 1) Patient will continue to taper off of Ultram. If she notes any of the above s/s of serotonin syndrome she will contact her physician. 2) Patient will stop CoQ10, L-lysine, glucosamine-chondroitin, and echinacea once her current supplies of each are gone to reduce number of daily medications and costs. If she notes increased knee/joint pain she will restart glucosamine-chondroitin. 3) Patient will continue Citracal until at least 2 weeks after stopping Ultram. If she continues to have problems with constipation at that time she will try holding her Citracal. 4) Patient Education: discussed medication dosage, usage, side effects and goal of treatment for allcurrent medications and supplements. Diet and exercise to help improve constipation were discussed. Patient verbalizes understanding and plans to increase fluids as diet is very fiber oriented at this time. 5) A copy of the After Visit Summary was mailed to patient, details were reviewed by me and all questions were answered. Patient declined signing release. 6) Patient to make appointment with Medication Therapy Management Pharmacist in 3-6 month(s) for follow-up evaluation. Updated [facility] med list and reviewed medications including indications with patient. Total time spent with patient 60 minutes. Vianney Jauregui, Pharm D Medication Therapy Management Program documented in this encounter Plan of Treatment Not on filedocumented as of this encounter Visit Diagnoses Diagnosis Chronic pain - Primary Other chronic pain Arthritis Arthropathy, unspecified, site unspecifi ed HTN Unspecified essential hypertension Depression Depressive disorder, not elsewhere class ified Constipation Unspecified constipation documented in this encounter Care Teams [employer] Specialist Relationship Specialty Start Date End Date Unassigned, Provider PCP - General 03/27/00 06/16/[address] [place] [id number] documented as of this encounter
--- OUTSIDE RECORDS SUMMARY | 2022-01-12 12:46 | XMS_ITS | Encounter Summary ---
:1955 [facility] Address [address] [address] Care Team Providers Name Role Phone Unassigned, Provider Primary Care Provider Unavailable Encounter Details Date Type Department Care Team Description 04/25/2009 - Hospital Encounter Judaism Jagdish Zaidi MD [address] [place] [id number] 05/01/2009 [id number] Jagdish Zaidi MD [address] [place] [id number] [place] [id number] [facility] [place] [address] Social History Tobacco Use Types Packs/Day Years Used Date Smoking Tobacco: Former Alcohol Use Standard Drinks/Week Comments No 0 (1 standard drink = 0.6 oz pure alcoho l) Recovering alcoholic Sex Assigned at Date Recorded Not on file documented as of this encounter Last Filed Vital Signs Vital Sign Reading Time Taken Comments Blood Pressure 118/80 05/01/2009 7:20 AM C: [employer] NUTRITION ASSOCIATE Pulse 102 05/01/2009 7:20 AM NUTRITION ASSOCIATE Temperature 36.7 ??C (98.1 ??F) 05/01/2009 7:20 AM ORAL C: 9 8.1 F NUTRITION ASSOCIATE Respiratory Rate 16 05/01/2009 7:20 AM NUTRITION ASSOCIATE Oxygen Saturation 96% 05/01/2009 7:21 AM NUTRITION ASSOCIATE Inhaled Oxygen Concentration - - Weight - - Height - - Body Mass Index - - documented in this encounter Discharge Summaries Jagdish Zaidi MD - 05/01/2009 12:01 AM CST Discharge Summaries signed by Jagdish Zaidi MD at 05/10/09 1325 Author: Jagdish Zaidi MD Service: (none) Author Type: Physician Filed: 07/07/102011 Note Time: 05/01/09 1605 Status: Signed Embryology Teacher: Jagdish Zaidi MD (Physician) NAME: Yaz Santamaria MR#: [id number] ACCT: [id number] AUTHENTICATING CLINICIAN: JAGDISH ZAIDI MD CONFIRM #: [id number] LOC: 1 HOSPITAL DISCHARGE SUMMARY Corrected Copy 05/04/09 sw/d : 1955 DATE OF ADMISSION: 04/25/09 DATE OF DISCHARGE: 05/01/09 PROCEDURE PERFORMED: Left total knee arthroplasty 04/25/09. ADMITTING DIAGNOSIS: Left knee DJD. SECONDARY DIAGNOSIS: Obstructive sleep apnea, herpes simplex virus, allergies, fibromyalgia. DISCHARGE DIAGNOSIS: 1. Left knee DJD status post left total knee arthroplasty. 2. Bilateral pulmonary emboli. HISTORY: HOSPITAL COURSE: Yaz is a pleasant 53-year-old female who is suffering from bilateral knee pain for quite some time. Nonoperative measures failed to relieve her bilateral symptoms. She wished to undergo bilateral total knee arthroplasties. However, was counseled with regard to the risks of those and it was determined that a left total knee arthroplasty would be more appropriate, as her left knee was more symptomatic. She had failed previous nonoperative measures for both her right and left knee pain and was made aware of the inherent risks and benefits associated with total knee arthroplasty. She presented on 04/25/09 for left total knee arthroplasty and tolerated the procedure quite well. On postoperative day #1, she was doing well. However, did get lightheaded with physical therapy. On postoperative day #2, she once again had symptoms of lightheadedness when upright with physical therapy, but lost consciousness and fell to the ground. At the time, a code was called. The medicine team evaluated the patient, obtained vital signs and labs, and deemed she was breathing on her own at the time. A CT angiogram was subsequently ordered because of her drop in O2 saturations and she was found to have bilateral pulmonary emboli. She was immediately fully anticoagulated and transferred to [address] [place] [address] in the cardiovascular unit. There she was stabilized on 5 liters of oxygen per nasal cannula, and fully anticoagulated with Fragmin and Coumadin. She stabilized on postoperative day #3 and was returned to the floor. While on the floor, she did well with 5 liters of oxygen per nasal cannula, and her Coumadin became therapeutic on postoperative day #4. During postoperative days #4 and 5 she did well with physical therapy, and her O2 saturations were maintained while on 5 liters of oxygen per nasal cannula. On postoperative day #4, she did complain of chest pain and a chest x-ray, along with EKG was ordered and a troponin was sent. All of these were negative for any pathology or signs of IN. She was able to have a bowel movement on postoperative day #4. Her pain was well controlled on oral pain medications. She was discharged on postoperative day #5 in stable condition, with therapeutic INR values and no complications. DISCHARGE PLAN: 1. She is to go home on oxycodone 5 mg 1 to 3 tablets p.o. q.3 h. p.r.n. pain and OxyContin 10 mg p.o. b.i.d. for pain control. 2. She is to be discharged on Coumadin 5 mg tablets to be adjusted by the house physician at her TCU for therapeutic INR between 2 and 3. The INR values will be followed by the TCU physician while she is under their stay. 3. She is discharged on Colace as a stool softener. 4. She is discharged on Compazine for nausea. 5. She is to be activity as tolerated. 6. She is instructed to keep her incision clean and dry for 2 weeks, but she is able to shower. She is instructed not to soak the wound for at least 3 weeks. 7. Further anticoagulation recommendations given her bilateral pulmonary emboli will be made by her primary care physician, once she is released from the transitional care unit. CONDITION ON DISCHARGE/INSTRUCTIONS: Dictated by Pradip Suarez MD MCS:[id number] C: 05/02/09 11:57 CONFIRM #: [id number] ITION ASSOCIATE documented in this encounter Medications at Time of Discharge Medication Sig Dispensed Refills Start Date End Date Acetaminophen 650 MG Take 1-2 tablets by 50 12 2009 mouth every 8 hours as needed. LW Addl Instr:Maximum of 6 tablets/24 hours. ACYCLOVIR 200 MG OR CAPS as needed 0 07/06/2007 amitriptyline (AKA ELAVIL) Take 1.5 tablets by 90 3 04/26/2009 10 MG tablet mouth nightly. LW Addl Instr:pt takes 50mg in the evening and 15mg at bedtime amitriptyline (AKA ELAVIL) Take 1 tablet by 90 3 12/2009 50 MG tablet mouth every evening. LW Addl Instr:pt takes 50mg in the evening and 15mg before bedtime ATENOLOL 50 MG OR TABS Take one tablet by 0 07/05 mouth every day. betamethasone dipropionate Apply 1 Application 15 0 04/26/2009 (AKA DIPROSONE) 0.05 % cream topically NEEDED PRN. LW Addl Instr:for eczema on hand calcium citrate-vitamin D Take 1 capsule by 0 12/2009 (CITRACAL MAXIMUM) 315-250 mouth 2 times MG-UNIT tablet daily. LW Addl Instr:pt takes 1 in the evening and 1 at bedtime Carboxymethylcellulose Apply 1 drop to eye 15 0 04/17 Sodium 1 % eye gel 2 times daily as needed. CITRACAL + D 315-200 MG-UNIT Take 2 tablets by 0 07/06/2007 OR TABS mouth daily Coenzyme Q10 (CO Q 10) 100 Take 1 capsule by 0 MG mouth daily (every 24 hours). COENZYME Q10 100 MG OR TABS Take one tablet by 0 07/06/2007 mouth daily [facility] ECHINACEA 400 MG CAPS Take 1 capsule by 0 12/2009 mouth daily (every 24 hours). CYMBALTA 30MG ORAL CAPS Take 4 capsules by 0 09/14 mouth daily DESOWEN LOTION/NIZORAL CREAM Apply topically 2 0 04/27/2009 1 TO 1 times daily. LW Addl Instr:Desowen cream and Nizoral cream mixed 50/50. Apply as directed to affected area twice daily as needed. DOCUSATE SODIUM 100 MG OR Take 1 tablet by 0 04/2 03/2007 CAPS mouth 4 times daily DULoxetine (AKA CYMBALTA) 60 Take 1 capsule by 3 04/26/2009 MG capsule mouth 2 times daily. LW Addl Instr:Indication: Fibromyalgia. pt takes 1 in the am and 1 at noon ECHINACEA 400 MG OR CAPS Take one tablet by 0 mouth twice daily FISH OIL 1200 MG OR CAPS Take by mouth twice 0 daily FOLIC ACID 400 MCG OR TABS Take one tablet by 0 0 07/06/2007 mouth gabapentin (AKA NEURONTIN) Take 1 capsule by 3 300 MG capsule mouth 4 times daily. LW Comment:info per pt LW Addl Instr:2 in am, 1 at noon, 1 in evening, and 1 at bedtime for total of 5 a day GLUCOSAMINE CHONDROITIN Take 2 tablets by 0 07/05 COMPLX OR TABS mouth daily GNP SENNA 8.6 MG OR CAPS Take 2-4 tablets by 0 mouth daily as needed at bedtime hydrochlorothiazide (AKA Take 1 tablet by 90 3 03/27 HYDRODIURIL) 25 MG tablet mouth daily (every 24 hours). LW Addl Instr:Indicated for: High Blood Pressure IBUPROFEN 200MG ORAL TABS Take 1-2 tablets by 0 0 07/06/2007 mouth every 4-6 hours as needed for pain. INDOMETHACIN 50 MG OR CAPS Take one capsule by 0 09/29/2007 mouth three times a day L-LYSINE HCL 500 MG OR TABS Take 2 tablets by 0 0 07/06/2007 mouth every morning LevOCARNitine (L-CARNITINE) Take 1 tablet by 0 250 MG mouth 2 times daily. loratadine (AKA CLARITIN) 10 Take 1 tablet by 90 3 0 04/26/2009 MG tablet mouth daily as needed. LW Addl Instr:pt only takes in summer Indicated for: Allergies LYSINE OR Take 1 tablet by 0 04/26/2009 mouth 2 times daily. LW Addl Instr:pt takes in morning and at noon MULTIPLE VITAMIN TABS Take one tablet by 0 2007 mouth twice daily. Multiple Vitamins-Minerals Take 1 tablet by 100 13 12/2009 (MULTIVITAMIN OR) mouth daily (every 24 hours). nystatin-triamcinolone (AKA Apply 1 15 3 04/26/19 10 MYCOLOG-II) 863400-2.1 Applicatorful UNIT/GM-% cream topically 3 times daily. LW Addl Instr:pt applies to left corner of eye and left corner of mouth [place]-3 Fatty Acids ([facility] Take 1 capsule by 0 04/17 FISH OIL) 1200 MG CAPS mouth 2 times daily. Psyllium (METAMUCIL) 48.57 % Take 1 tsp by mouth 0 04/26/2009 powder daily (every 24 hours). LW Addl Instr:Dissolve in full glass of water or juice. REMERON 15 MG OR TABS Take one tablet by 0 2007 mouth daily senna (SENNA) 8.6 MG tablet Take 2 tablets by 0 0 04/26/2009 mouth at bedtime as needed. LW Addl Instr:INDICATED FOR CONSTIPATION. TRAZODONE HCL 50 MG OR TABS Take one tablet by 0 07/06/2007 mouth at bedtime. TYLENOL ARTHRITIS PAIN 650 Take 2 tablets by 0 MG OR TBCR mouth as needed valACYclovir (AKA VALTREX) 1 Take 1 tablet by 0 0 04/26/2009 G tablet mouth 2 times daily as needed. LW Addl Instr:if pt has cold sore, pt takes 1 in am and 1 in pm for total treatment VITEX EXTRACT 175 MG OR CAPS Take one capsule by 0 07/06/2007 mouth twice daily UNKNOWN MEDICATION Indications: PN: 0 04/24/2009 0 UNKNOWN MEDICATION Indications: PN: 0 03/27/2009 0 documented as of this encounter Procedure Notes Jagdish Zaidi MD - 04/25/2009 12:01 AM CST Progress Notes signed by Jagdish Zaidi MD at 04/25/09 6692 Author: Jagdish Zaidi MD Service: (none) Author Type: Physician Filed: 07/07/102002 Note Time: 04/25/09 0800 Status: Signed Embryology Teacher: Jagdish Zaidi MD (Physician) Patient Name: Yaz Santamaria Gender: F Date of : 1955 Age: 53 Admit Type: Inpatient Note Status: Finalized Procedure Date no Time: 04/25/2009 Surgical Staff: Jagdish Zaidi MD, Dave Suarez MD Referring MD: Procedure: Primary Left Knee Arthroplasty: Total Femoral, Tibial, Patella Requesting Physician: Patient Profile: This is a 53 year old female. Refer to note in patient chart for documentation of history and physical. The patient has failed previous non-operative treatment. Due to the nature of the patient's increasing pain and increasing symptoms surgery is recommended. The alternatives, risks and benefits of surgery including bleeding, infection, blood clot, pulmonary embolism, postoperative stiffness and postoperative pain were discussed with the patient. The patient verbalized understanding of the risks as well as the alternatives to surgery. The patient wished to proceed with operative intervention. A signed and witnessed informed consent was placed on the chart. Pre-OP Diagnosis: Primary osteoarthritis of the knee Post-OP Diagnosis: Primary osteoarthritis of the knee Anesthesia: Spinal. Findings: Bone / Cartilage: - The preoperative alignment was five degrees varus. Alignment was corrected intraoperatively with MCL release, medial osteophyte excision and PCL release. The resultant postoperative alignment was five degrees valgus. - Bone loss noted less than 2 cm from the distal femur and proximal tibia medially. Joint: - There was complete loss of articular cartilage in the medial compartment and patello-femoral compartment. Description of Procedure: Patient Positioning: - The patient was placed in the supine position on the standard operating table. [place] Leg Etienne were used for additional positioning. All body parts were well padded and protected to make sure there were no pressure points. The surgical area was prepped and draped in the appropriate sterile fashion with DuraPrep. The surgical extremity was elevated for venous exsanguination. The tourniquet was placed on the proximal thigh. The extremity was exsanguinated with an Esmarch bandage, and a pneumatic tourniquet, previously placed over cast padding, was applied. Incision Type: - Open: Anterior Midline. A small amount of fluid was drained upon entry of the joint. Instruments and Methods: - Following the surgical approach, the parapatellar retinaculum was incised and the patella carefully everted to expose the knee joint. Retractors were placed and femoral osteophytes, notch osteophytes, tibial osteophytes, patellar osteophytes, the medial meniscus, the lateral meniscus, the anterior cruciate ligament, the posterior cruciate ligament, peripatellar fat and impeding soft tissues were excised to facilitate the exposure and subsequent bone cuts. - An intramedullary hole was created in the distal femur and the intramedullary jig was introduced in the femoral canal. The distal femoral cut was made and the combined anterior / posterior / chamfer. Cutting blocks were utilized for the anterior, posterior and chamfer cuts. The distal femoral resection was carried out for an overall limb alignment of 6 degrees valgus. - The tibial cuts were made with cutting blocks positioned using extramedullary instrumentation. The tibial cuts measured 7 mm from the (lateral) high side and from the low side. The overall alignment of the tibial bone resection was perpendicular to the long axis. Care was taken to remove all remaining peripheral and posterior femoral and tibial osteophytes. The proximal tibia was marked for proper rotation and broached to accommodate the subsequent tibial implant stem. - Soft tissue balancing was accomplished in flexion and extension to include the medial and lateral collaterals as well as the posterior ligamentous structures. Release of the deep medial collateral off the tibia and release of the superficial medial collateral off the tibia were performed to complete the ligament balancing. There was appropriate tension between medial and lateral support, good symmetry between the extension and flexion gaps and good medial / lateral balance. - The femoral and tibial trial components were inserted and noted to fit with proper size, position and orientation. Optimal fit was obtained with the size 3 femoral component and size 2 tray, 11 mm tibial component. Trial reduction was then carried out with the femoral and tibial trial components in place. There was full extension of the knee, full flexion, no residual flexion contracture, no hyperextension, good medial and lateral collateral ligament support, good alignment throughout the range of motion and normal roll back. - The patella cuts were made using the patellar clamp and cutting block. The patellar thickness and diameter were measured, using a caliper, before and after the cuts were made to determine the proper size of the implant. - The bony surfaces of the tibia were thoroughly cleansed with jet lavage and meticulously dried prior to the application and pressurization of the cement. The cemented total knee, size 2 tray, coated tibial implant was inserted and the cement allowed to cure and noted to be stable. Meticulous care was taken to remove excess cement. - The bony surfaces of the femur were thoroughly cleansed with jet lavage and meticulously dried prior to the application and pressurization of the cement. The cemented size 3, cruciate-substituting coated femoral implant was inserted and noted to be stable. Meticulous care was taken to remove excess cement. - The cemented components were done simultaneously. - The 11 mm thick PCL substituting, UHMWPE tibial component was inserted and locked properly on the tibial implant. Post-Implant Stability Exam: - Post-implantation, the alignment of the knee was 5 degrees valgus. Varus-valgus stability was excellent. Passive range of motion with the retinaculum closed was from 0 to 135 degrees. Implants: - The femoral component used was a total condylar, porous coated, PCL substituting, cemented prosthesis without bone graft. Excess cement was carefully removed. The appropriate size prosthesis was used. The tibial component used was a total condylar, porous coated, cemented prosthesis without bone graft. Excess cement was carefully removed. The UHMWPE(poly) tibial insert used was PCL substituting, 9 mm thick. The patellar component was an all-poly cemented prosthesis. The excess cement was carefully removed. This was a standard size component, 7 mm thick. Drains / Dressing: - Drains: None. - One medium Hemovac drain placed into the joint exiting through a separate incision, superiorly, laterally and attached to self suction. - Dressing per protocol. Tourniquet Time: - Tourniquet applied for 1 hour, 5 minutes at 300 mmHg. There was a prompt return of circulation to the distal extremity and there was a prompt hyperemic response returned to the distal extremity. Sponge / Instrument / Needle Counts: - Final counts were correct. Intraoperative Inputs and Outputs: - No transfusions; minimal blood loss. Intraoperative Medications: - Ancef 2 g IV prior to incision. Cast / Immobilization: - Long-leg knee immobilizer applied to left lower extremity. Patient to Recovery Room: - The patient tolerated the procedure well and was brought to the recovery room in excellent condition. Complications: No Immediate Complications. CPT Codes(s): 93532, LT, Arthroplasty, knee, condyle and plateau; medial AND lateral compartments with or without patella resurfacing (total knee arthroplasty) ICD Code(s): 715.16, Osteoarthrosis, localized, primary, involving lower leg CPT 2008 [employer]. All Rights Reserved. No fee schedules, basic units, relative values or related listings are included in CPT. A does not directly or indirectly practice medicine or dispense medical services. [facility] assumes no liability for data contained or not contained herein. CPT is a registered trademark of the [employer]. The codes documented in this report are preliminary and upon travel services professional review may be revised to meet current compliance requirements. Attending Participation: This operation could not have been safely performed (without compromising the technical results or length of the procedure) without the assistance of a skilled instructor adjunct surgical technician. A instructor adjunct surgical technician was medically necessary for positioning, retraction, and instrumentation. No ortho resident was available for this case. Jagdish Zaidi MD Signed Date: 04/25/2009 5:39 PM Number of Addenda: 0 Note initiated on 04/25/2009 5:21 PM Procedure Date: 04/25/2009 8:00 AM ITION ASSOCIATE documented in this encounter Miscellaneous Notes Miscellaneous - Jagdish Zaidi MD - 05/01/2009 12:01 AM CST ICD-9-CM ICD-9-CM Narrative description Code ======== DIAGNOSES Principal: LOC PRIM OSTEOART-L/LEG 715.16 Secondary: IATROGENIC PULMONARY EMBOLISM AND INFARCTION 415.11 HYPERTENSION NOS 401.9 HERPES SIMPLEX NOS 054.9 OBSTRUCTIVE SLEEP APNEA (ADULT)(PEDIATRIC) 327.23 ESOPHAGEAL REFLUX 530.81 DEPRESSIVE DISORDER NEC 311 MYALGIA AND MYOSITIS NOS 729.1 ABN REACT-ARTIF IMPLANT E878.1 ACCID IN RESIDENT INSTIT E849.7 PROCEDURES Provider1 Date Principal: TOTAL KNEE REPLACEMENT JAGDISH ZAIDI [id number] 81.54 Provider2: Provider3: KOSTA CHARLTON ITION ASSOCIATE documented in this encounter Plan of Treatment Not on filedocumented as of this encounter Procedures Procedure Name Priority Date/Time Associated Comments Diagnosis COMPLETE BLOOD Routine 05/01/2009 6:05 AM Results for this COUNT-W/DIFF NUTRITION ASSOCIATE procedure are i n the results section. INR/PROTIME Routine 05/01/2009 6:05 AM Results f or this NUTRITION ASSOCIATE procedure are i n the results section. LAB TYPE, SCREEN AND Routine 04/30/2009 12:25 Res ults for this CROSSMATCH PM NUTRITION ASSOCIATE procedure are i n the results section. LAB TYPE, SCREEN AND Routine 04/30/2009 10:35 Res ults for this CROSSMATCH AM NUTRITION ASSOCIATE procedure are i n the results section. COMPLETE BLOOD Routine 04/30/2009 8:53 AM Results for this COUNT-W/DIFF NUTRITION ASSOCIATE procedure are i n the results section. BASIC METABOLIC PANEL Routine 04/30/2009 8:53 AM Results for this NUTRITION ASSOCIATE procedure are i n the results section. INR/PROTIME Routine 04/30/2009 8:53 AM Results f or this NUTRITION ASSOCIATE procedure are i n the results section. TROPONIN I Routine 04/29/2009 8:29 PM Results f or this NUTRITION ASSOCIATE procedure are i n the results section. XR CHEST 2 VIEWS Routine 04/29/2009 4:02 PM Resul ts for this NUTRITION ASSOCIATE procedure are i n the results section. HEMOGLOBIN, BLOOD Routine 04/29/2009 9:01 AM Resu lts for this NUTRITION ASSOCIATE procedure are i n the results section. INR/PROTIME Routine 04/29/2009 9:01 AM Results f or this NUTRITION ASSOCIATE procedure are i n the results section. ECG 12 LEAD INPATIENT STAT 04/29/2009 6:03 AM Results for this NUTRITION ASSOCIATE procedure are i n the results section. CREATININE / GFR Routine 04/28/2009 5:27 AM Resul ts for this NUTRITION ASSOCIATE procedure are i n the results section. HEMOGLOBIN, BLOOD Routine 04/28/2009 5:27 AM Resu lts for this NUTRITION ASSOCIATE procedure are i n the results section. ELECTROLYTE PANEL Routine 04/28/2009 5:27 AM Resu lts for this NUTRITION ASSOCIATE procedure are i n the results section. INR/PROTIME Routine 04/28/2009 5:27 AM Results f or this NUTRITION ASSOCIATE procedure are i n the results section. BEDSIDE GLUCOSE Routine 04/27/2009 9:44 PM Result s for this MONITOR POCT NUTRITION ASSOCIATE procedure are i n the results section. BEDSIDE GLUCOSE Routine 04/27/2009 5:34 PM Result s for this MONITOR POCT NUTRITION ASSOCIATE procedure are i n the results section. US VENOUS BILAT LOWER Routine 04/27/2009 12:01 Re sults for this EXTREM DOPPLER PM NUTRITION ASSOCIATE procedure are in the results section. BEDSIDE GLUCOSE Routine 04/27/2009 11:41 Results for this MONITOR POCT AM NUTRITION ASSOCIATE procedure are i n the results section. BEDSIDE GLUCOSE Routine 04/27/2009 8:26 AM Result s for this MONITOR POCT NUTRITION ASSOCIATE procedure are i n the results section. CREATININE / GFR Routine 04/27/2009 5:00 AM Resul ts for this NUTRITION ASSOCIATE procedure are i n the results section. HEMOGLOBIN, BLOOD Routine 04/27/2009 5:00 AM Resu lts for this NUTRITION ASSOCIATE procedure are i n the results section. ELECTROLYTE PANEL Routine 04/27/2009 5:00 AM Resu lts for this NUTRITION ASSOCIATE procedure are i n the results section. INR/PROTIME Routine 04/27/2009 5:00 AM Results f or this NUTRITION ASSOCIATE procedure are i n the results section. BEDSIDE GLUCOSE Routine 04/26/2009 9:16 PM Result s for this MONITOR POCT NUTRITION ASSOCIATE procedure are i n the results section. BEDSIDE GLUCOSE Routine 04/26/2009 7:35 PM Result s for this MONITOR POCT NUTRITION ASSOCIATE procedure are i n the results section. CT ANGIO CHEST W IV STAT 04/26/2009 7:24 PM Re sults for this CONT PE STUDY NUTRITION ASSOCIATE procedure are in the results section. CREATININE / GFR Routine 04/26/2009 6:30 PM Resul ts for this NUTRITION ASSOCIATE procedure are i n the results section. COMPLETE BLOOD Routine 04/26/2009 6:30 PM Results for this COUNT-W/DIFF NUTRITION ASSOCIATE procedure are i n the results section. ELECTROLYTE PANEL Routine 04/26/2009 6:30 PM Resu lts for this NUTRITION ASSOCIATE procedure are i n the results section. BUN Routine 04/26/2009 6:30 PM Results f or this NUTRITION ASSOCIATE procedure are i n the results section. ECG 12 LEAD INPATIENT STAT 04/26/2009 6:27 PM Results for this NUTRITION ASSOCIATE procedure are i n the results section. HEMOGLOBIN, BLOOD Routine 04/26/2009 7:34 AM Resu lts for this NUTRITION ASSOCIATE procedure are i n the results section. INR/PROTIME Routine 04/26/2009 7:34 AM Results f or this NUTRITION ASSOCIATE procedure are i n the results section. COMPLETE BLOOD Routine 04/25/2009 6:40 PM Results for this COUNT-W/DIFF NUTRITION ASSOCIATE procedure are i n the results section. ECG 12 LEAD INPATIENT STAT 04/25/2009 6:11 PM Results for this NUTRITION ASSOCIATE procedure are i n the results section. BEDSIDE GLUCOSE Routine 04/25/2009 5:44 PM Result s for this MONITOR POCT NUTRITION ASSOCIATE procedure are i n the results section. INR/PROTIME Routine 04/25/2009 3:55 PM Results f or this NUTRITION ASSOCIATE procedure are i n the results section. XR KNEE LT AP AND Routine 04/25/2009 10:30 Result s for this LATERAL AM NUTRITION ASSOCIATE procedure are i n the results section. MRSA CULTURE Routine 04/25/2009 6:40 AM Results f or this NUTRITION ASSOCIATE procedure are i n the results section. BEDSIDE GLUCOSE Routine 04/25/2009 6:10 AM Result s for this MONITOR POCT NUTRITION ASSOCIATE procedure are i n the results section. POTASSIUM Routine 04/25/2009 5:40 AM Results f or this NUTRITION ASSOCIATE procedure are i n the results section. documented in this encounter Results (ABNORMAL) INR/Protime (05/01/2009 6:05 AM NUTRITION ASSOCIATE) [employer] Method Time Signature Prothrombin 25.5 (H) 12.6 - HP CONVERSION Time 15.0 sec INR 2.3 No normal HP CONVERSION range Comment: Recommendations for INR in warfarin ther apy: (Chest, Vol. 119, No. 1, Mar 2000, Suppl ement). Prevention and treatment of venous throm bosis; ? INR 2.0-3.0 Treatment of PE; Prevention of systemic embolism due to prosthetic tissue heart valves, b ileaflet mechanical valves in the aortic position , acute IN, valvular heart disease and atrial fibril lation. Mechanical prosthetic valves, (high risk ). ? INR 2.5-3.5 Prevention of recurrent myocardial infar ct. These recommended ranges serve as guidel mk. Adjustment outside these ranges may be clinically indicated. Specimen (Source) Anatomical Collection Method Collection Time Re ceived Time Location / / Volume Laterality 05/01/2009 6:05 AM NUTRITION ASSOCIATE Pradip Suarez MD LAB_1 Performing Organization Address City/State/ZIP Code Phon e Number HP CONVERSION (ABNORMAL) Hemogram/Plts/Diff (05/01/2009 6:05 AM NUTRITION ASSOCIATE) [employer] Method Time Signature White Blood Cell 8.0 3.8 - 11.0 HP CONVERSIO N Count k/cmm Red Blood Cell 3.30 (L) 3.70 - HP CONVERSION Count 5.20 m/cmm Hemoglobin 10.2 (L) 11.8 - HP CONVERSION 15.5 gm/dL Hematocrit 29.8 (L) 35.0 - HP CONVERSION 46.0 % Mean Corpuscular 90.3 80.0 - HP CONVERSION Volume 100.0 fl Mean Corpuscular 31.0 27.0 - HP CONVERSION Hemoglobin 34.0 pg Mean Corpuscular 34.3 32.0 - HP CONVERSION Hemoglobin Conc 36.5 gm/dL Agar RDW 14.4 11.0 - HP CONVERSION 15.0 % Platelet Count 258 140 - 450 HP CONVERSION k/cmm Differential Auto-Dif No normal HP CONVERSION Verify range Neutrophils 5.7 2.0 - 7.5 HP CONVERSION Absolute Count k/cmm Neutrophil 71.1 50.0 - HP CONVERSION 75.0 % Lymphocyte % 17.8 (L) 20.0 - HP CONVERSION 40.0 % Monocyte 8.6 5.0 - 14.0 HP CONVERSION % Eosinophil 1.9 0.0 - 6.0 HP CONVERSION % Basophil % 0.6 0.0 - 2.0 HP CONVERSION % Specimen (Source) Anatomical Collection Method Collection Time Re ceived Time Location / / Volume Laterality 05/01/2009 6:05 AM NUTRITION ASSOCIATE Leodan Bergeron MD LAB_1 Performing Organization Address City/[facility] Phon e Number HP CONVERSION LAB TYPE, SCREEN AND CROSSMATCH (04/30/2009 12:25 PM NUTRITION ASSOCIATE) P athologist Signature BB BLOOD TYPE O POS No normal HP CONVERSION (BLOOD GROUP & range RH) Blood Type # [id number] HP CONVERSION Units Requested N/O BB NEG No normal HP CONVERSION ANTIBODY range SCREEN Specimen (Source) Anatomical Collection Method Collection Time Re ceived Time Location / / Volume Laterality 04/30/2009 12:25 PM NUTRITION ASSOCIATE Jagdish Zaidi MD LAB_1 Performing Organization Address City/[facility] Code Phon e Number HP CONVERSION LAB TYPE, SCREEN AND CROSSMATCH (04/30/2009 10:35 AM NUTRITION ASSOCIATE) [facility] gist Method Time Signature BB BLOOD TYPE FOOTNOTE No normal HP CONVERSION (BLOOD GROUP & range RH) Comment: BT INT CORRECTED FROM ??FOOTNOTE TO FOOT NOTE ON 05/01/09 ??BY MIGUELITO RESULTS ENTERED IN ERROR ON A SPECIMEN W ITH THE WRONG DATE OF . TESTING WAS COMPLETED ON A RE-DRAW SPECIMEN. A C REDIT WILL BE ISSUED FOR THIS ORDER. N/O BB ANTIBODY SCREEN FOOTNOTE No normal range H P CONVERSION Comment: SPECIMEN DRAWN HAD THE WRONG DATE OF BIR TH ON THE SPECIMEN LABEL. A CREDIT WAS ISSUED FOR THIS ORDER. Specimen (Source) Anatomical Collection Method Collection Time Re ceived Time Location / / Volume Laterality 04/30/2009 10:35 AM NUTRITION ASSOCIATE Leodan Bergeron MD LAB_1 Performing Organization Address [facility] Phon e Number HP CONVERSION (ABNORMAL) INR/Protime (04/30/2009 8:53 AM NUTRITION ASSOCIATE) [facility] Method Time Signature Prothrombin 24.8 (H) 12.6 - HP CONVERSION Time 15.0 sec INR 2.2 No normal HP CONVERSION range Comment: Recommendations for INR in warfarin ther apy: (Chest, Vol. 119, No. 1, Mar 2000, Suppl ement). Prevention and treatment of venous throm bosis; ? INR 2.0-3.0 Treatment of PE; Prevention of systemic embolism due to prosthetic tissue heart valves, b ileaflet mechanical valves in the aortic position , acute IN, valvular heart disease and atrial fibril lation. Mechanical prosthetic valves, (high risk ). ? INR 2.5-3.5 Prevention of recurrent myocardial infar ct. These recommended ranges serve as guidel mk. Adjustment outside these ranges may be clinically indicated. Specimen (Source) Anatomical Collection Method Collection Time Re ceived Time Location / / Volume Laterality 04/30/2009 8:53 AM NUTRITION ASSOCIATE Pradip Suarez MD LAB_1 Performing Organization Address [facility] Phon e Number HP CONVERSION (ABNORMAL) Basic Metabolic Panel (04/30/2009 8:53 AM NUTRITION ASSOCIATE) [facility] Method Time Signature Creatinine Serum 0.7 0.4 - 1.3 HP CONVERSION mg/dL Lab Glucose 178 (H) 60 - 100 HP CONVERSION mg/dL Bicarbonate 29 23 - 33 HP CONVERSION mmol/L Chloride 102 98 - 110 HP CONVERSION mEq/L Potassium 4.2 3.5 - 5.2 HP CONVERSION mEq/L Sodium 136 (L) 137 - 147 HP CONVERSION mEq/L Blood Urea 9 5 - 26 HP CONVERSION Nitrogen mg/dL Calcium 8.3 (L) 8.5 - 10.5 HP CONVERSION mg/dL Est GFR >60 >60 HP CONVERSION Am Comment: -Bahamian and Qpf-Nobrhjq-Digbdai n reference range units: mL/min/1.73m2 Normal>60, moderate decrease 30 - 59, se meli decrease 15 - 29, renal failure <15 mL/min/1.73 m2 NOTE: Choose the eGFR result above appro priate for the race of the patient. Est GFR Non-Afr Am >60 >60 HP CONVERSI ON Specimen (Source) Anatomical Collection Method Collection Time Re ceived Time Location / / Volume Laterality 04/30/2009 8:53 AM NUTRITION ASSOCIATE Leodan Bergeron MD LAB_1 Performing Organization Address City/State/ZIP Code Phon e Number HP CONVERSION (ABNORMAL) Hemogram/Plts/Diff (04/30/2009 8:53 AM NUTRITION ASSOCIATE) [facility] gist Method Time Signature White Blood Cell 9.0 3.8 - 11.0 HP CONVERSIO N Count k/cmm Red Blood Cell 2.94 (L) 3.70 - HP CONVERSION Count 5.20 m/cmm Hemoglobin 8.6 (L) 11.8 - HP CONVERSION 15.5 gm/dL Hematocrit 26.4 (L) 35.0 - HP CONVERSION 46.0 % Mean Corpuscular 89.8 80.0 - HP CONVERSION Volume 100.0 fl Mean Corpuscular 29.2 27.0 - HP CONVERSION Hemoglobin 34.0 pg Mean Corpuscular 32.5 32.0 - HP CONVERSION Hemoglobin Conc 36.5 gm/dL Agar RDW 15.0 11.0 - HP CONVERSION 15.0 % Platelet Count 282 140 - 450 HP CONVERSION k/cmm Differential Auto-Dif No normal HP CONVERSION Verify range Neutrophils 7.1 2.0 - 7.5 HP CONVERSION Absolute Count k/cmm Neutrophil 78.6 (H) 50.0 - HP CONVERSION 75.0 % Lymphocyte % 12.3 (L) 20.0 - HP CONVERSION 40.0 % Specimen (Source) Anatomical Collection Method Collection Time Re ceived Time Location / / Volume Laterality 04/30/2009 8:53 AM NUTRITION ASSOCIATE Leodan Bergeron MD LAB_1 Performing Organization Address City/[facility]/ZIP Code Phon e Number HP CONVERSION Troponin I (04/29/2009 8:29 PM NUTRITION ASSOCIATE) P athologist Signature TROPONIN I 0.13 0.00 - 0.30 HP CONVERSION ng/mL Specimen (Source) Anatomical Collection Method Collection Time Re ceived Time Location / / Volume Laterality 04/29/2009 8:29 PM NUTRITION ASSOCIATE Leodan Bergeron MD LAB_1 Performing Organization Address City/State/ZIP Code Phon e Number HP CONVERSION XR Chest 2 Views (04/29/2009 4:02 PM NUTRITION ASSOCIATE) Anatomical Region Laterality Modality Chest, Lung Other Specimen (Source) Anatomical Location Collection Method / Collectio n Time Received Time / Laterality Volume Impressions 04/29/2009 4:02 PM NUTRITION ASSOCIATE : Cardiac silhouette is upper normal in size. ??Pulmonary vasculature is within normal limits. ??T here is an area of diskoid atelectasis in the right midlung and min imal atelectasis or infiltrate in the left lower lobe. Lungs and pleural spaces are otherwise clear. Dictating MAINE GALLARDO Radiologist Narrative 04/29/2009 4:02 PM NUTRITION ASSOCIATE COMPARISON: None. Procedure Note Maine Keyes MD - 08/31/2015Formattin g of this note might be different from the original. COMPARISON: None. IMPRESSION : Cardiac silhouette is upper normal in size. Pulmonary vasculature is within normal limits. The re is an area of diskoid atelectasis in the right midlung and min imal atelectasis or infiltrate in the left lower lobe. Lungs and pleural spaces are otherwise clear. Dictating MAINE GALLARDO Radiologist Leodan Bergeron MD RAD GD (ABNORMAL) INR/Protime (04/29/2009 9:01 AM NUTRITION ASSOCIATE) [facility] Method Time Signature Prothrombin 27.2 (H) 12.6 - HP CONVERSION Time 15.0 sec INR 2.5 No normal HP CONVERSION range Comment: Recommendations for INR in warfarin ther apy: (Chest, Vol. 119, No. 1, Mar 2000, Suppl ement). Prevention and treatment of venous throm bosis; ? INR 2.0-3.0 Treatment of PE; Prevention of systemic embolism due to prosthetic tissue heart valves, b ileaflet mechanical valves in the aortic position , acute [place], valvular heart disease and atrial fibril lation. Mechanical prosthetic valves, (high risk ). ? INR 2.5-3.5 Prevention of recurrent myocardial infar ct. These recommended ranges serve as guidel mk. Adjustment outside these ranges may be clinically indicated. Specimen (Source) Anatomical Collection Method Collection Time Re ceived Time Location / / Volume Laterality 04/29/2009 9:01 AM NUTRITION ASSOCIATE Pradip Suarez MD LAB_1 Performing Organization Address [facility] Phon e Number HP CONVERSION (ABNORMAL) Hemoglobin, Blood (04/29/2009 9:01 AM NUTRITION ASSOCIATE) P athologist Signature Hemoglobin 9.1 (L) 11.8 - 15.5 HP CONVERSION gm/dL Specimen (Source) Anatomical Collection Method Collection Time Re ceived Time Location / / Volume Laterality 04/29/2009 9:01 AM NUTRITION ASSOCIATE Rosalina Saez MD LAB_1 Performing Organization Address [facility] Phon e Number HP CONVERSION ECG 12 Lead Inpatient (04/29/2009 6:03 AM NUTRITION ASSOCIATE) Specimen (Source) Anatomical Collection Method Collection Time Re ceived Time Location / / Volume Laterality 04/29/2009 6:03 AM NUTRITION ASSOCIATE Narrative HP CONVERSION - 04/29/2009 6:03 AM NUTRITION ASSOCIATE Sinus tachycardia Otherwise normal ECG When compared with ECG of 26-APR-2009 1 8:27, No significant change was found Agustin Guzman DO PN ECG ORDERABLES Performing Organization Address [facility] Phon e Number HP CONVERSION (ABNORMAL) INR/Protime (04/28/2009 5:27 AM NUTRITION ASSOCIATE) Patholo gist Method Time Signature Prothrombin 24.2 (H) 12.6 - HP CONVERSION Time 15.0 sec INR 2.2 No normal HP CONVERSION range Comment: Recommendations for INR in warfarin ther apy: (Chest, Vol. 119, No. 1, Mar 2000, Suppl ement). Prevention and treatment of venous throm bosis; ? INR 2.0-3.0 Treatment of PE; Prevention of systemic embolism due to prosthetic tissue heart valves, b ileaflet mechanical valves in the aortic position , acute IN, valvular heart disease and atrial fibril lation. Mechanical prosthetic valves, (high risk ). ? INR 2.5-3.5 Prevention of recurrent myocardial infar ct. These recommended ranges serve as guidel mk. Adjustment outside these ranges may be clinically indicated. Specimen (Source) Anatomical Collection Method Collection Time Re ceived Time Location / / Volume Laterality 04/28/2009 5:27 AM NUTRITION ASSOCIATE Pradip Suarez MD LAB_1 Performing Organization Address City/[facility] Code Phon e Number HP CONVERSION Creatinine / GFR (04/28/2009 5:27 AM NUTRITION ASSOCIATE) athologist Signature Creatinine 0.7 0.4 - 1.3 HP CONVERSION Serum mg/dL Est GFR >60 >60 HP CONVERSION Am Comment: -Bahamian and Ixd-Tinzihy-Ozlikej n reference range units: mL/min/1.73m2 Normal>60, moderate decrease 30 - 59, se mlei decrease 15 - 29, renal failure <15 mL/min/1.73 m2 NOTE: Choose the eGFR result above appro priate for the race of the patient. Est GFR Non-Afr Am >60 >60 HP CONVERSI ON Specimen (Source) Anatomical Collection Method Collection Time Re ceived Time Location / / Volume Laterality 04/28/2009 5:27 AM NUTRITION ASSOCIATE Rosalina Saez MD LAB_1 Performing Organization Address [facility] Phon e Number HP CONVERSION Electrolyte Panel (04/28/2009 5:27 AM NUTRITION ASSOCIATE) P athologist Signature Sodium 140 137 - 147 HP CONVERSION mEq/L Potassium 4.1 3.5 - 5.2 HP CONVERSION mEq/L Chloride 106 98 - 110 HP CONVERSION mEq/L Bicarbonate 33 23 - 33 HP CONVERSION mmol/L Specimen (Source) Anatomical Collection Method Collection Time Re ceived Time Location / / Volume Laterality 04/28/2009 5:27 AM NUTRITION ASSOCIATE Rosalina Saez MD LAB_1 Performing Organization Address [facility] Code Phon e Number HP CONVERSION (ABNORMAL) Hemoglobin, Blood (04/28/2009 5:27 AM NUTRITION ASSOCIATE) athologist Signature Hemoglobin 9.4 (L) 11.8 - 15.5 HP CONVERSION gm/dL Specimen (Source) Anatomical Collection Method Collection Time Re ceived Time Location / / Volume Laterality 04/28/2009 5:27 AM NUTRITION ASSOCIATE Rosalina Saez MD LAB_1 Performing Organization Address [facility]/ZIP Code Phon e Number HP CONVERSION BEDSIDE GLUCOSE MONITOR (04/27/2009 9:44 PM NUTRITION ASSOCIATE) P athologist Signature Bedside Blood 192 mg/dL HP CONVERSION Glucose Test Blood Glucose * No normal HP CONVERSION Screen, range Comment 1 Blood Glucose * No normal HP CONVERSION Screen, range Comment 2 Blood Glucose * No normal HP CONVERSION Screen, range Comment 3 Specimen (Source) Anatomical Collection Method Collection Time Re ceived Time Location / / Volume Laterality 04/27/2009 9:44 PM NUTRITION ASSOCIATE Jagdish Zaidi MD LAB_1 Performing Organization Address [facility] Phon e Number HP CONVERSION BEDSIDE GLUCOSE MONITOR (04/27/2009 5:34 PM NUTRITION ASSOCIATE) P athologist Signature Bedside Blood 144 mg/dL HP CONVERSION Glucose Test Blood Glucose * No normal HP CONVERSION Screen, range Comment 1 Blood Glucose * No normal HP CONVERSION Screen, range Comment 2 Blood Glucose * No normal HP CONVERSION Screen, range Comment 3 Specimen (Source) Anatomical Collection Method Collection Time Re ceived Time Location / / Volume Laterality 04/27/2009 5:34 PM NUTRITION ASSOCIATE Jagdish Zaidi MD LAB_1 Performing Organization Address [facility] Phon e Number HP CONVERSION US Lower Extremity Bilat Venous Doppler (04/27/2009 12:01 PM NUTRITION ASSOCIATE) Anatomical Region Laterality Modality Vascular, Leg Other Specimen (Source) Anatomical Location Collection Method / Collectio n Time Received Time / Laterality Volume Impressions 04/27/2009 12:01 PM NUTRITION ASSOCIATE : ??Negative bilateral lower extremity venous duplex ultrasound with no evidence of acute martina p venous thrombosis. ??Small calf vein thrombosis cannot be completel y excluded by this technique. Dictating GRAYSON SPARROW MD Narrative 04/27/2009 12:01 PM NUTRITION ASSOCIATE CLINICAL HISTORY: ?? PE, looking for DVT COMPARISON: ??None. FINDINGS: ??The deep venous system of th e lower extremities bilaterally was visualized using color-f low Doppler technique. ??The common femoral, superficial femoral, pop liteal, and visualized portions of the posterior tibial and per franklin veins bilaterally show normal compressibility, color flow and r esponse to augmentation. Procedure Note Grayson Moon - 08/31/2015 CLINICAL HISTORY: PE, looking for DVT COMPARISON: None. FINDINGS: The deep venous system of the lower extremities bilaterally was visualized using color-f low Doppler technique. The common femoral, superficial femoral, pop liteal, and visualized portions of the posterior tibial and per franklin veins bilaterally show normal compressibility, color flow and r esponse to augmentation. IMPRESSION : Negative bilateral lower extremity lester ous duplex ultrasound with no evidence of acute martina p venous thrombosis. Small calf vein thrombosis cannot be completel y excluded by this technique. Dictating GRAYSON SPARROW MD Rosalina Saez MD [facility] BEDSIDE GLUCOSE MONITOR (04/27/2009 11:41 AM NUTRITION ASSOCIATE) athologist Signature Bedside Blood 165 mg/dL HP CONVERSION Glucose Test Blood Glucose * No normal HP CONVERSION Screen, range Comment 1 Blood Glucose * No normal HP CONVERSION Screen, range Comment 2 Blood Glucose * No normal HP CONVERSION Screen, range Comment 3 Specimen (Source) Anatomical Collection Method Collection Time Re ceived Time Location / / Volume Laterality 04/27/2009 11:41 AM NUTRITION ASSOCIATE Jagdish Zaidi MD LAB_1 Performing Organization Address City/State/ZIP Code Phon e Number HP CONVERSION BEDSIDE GLUCOSE MONITOR (04/27/2009 8:26 AM NUTRITION ASSOCIATE) athologist Signature Bedside Blood 170 mg/dL HP CONVERSION Glucose Test Blood Glucose * No normal HP CONVERSION Screen, range Comment 1 Blood Glucose * No normal HP CONVERSION Screen, range Comment 2 Blood Glucose * No normal HP CONVERSION Screen, range Comment 3 Specimen (Source) Anatomical Collection Method Collection Time Re ceived Time Location / / Volume Laterality 04/27/2009 8:26 AM NUTRITION ASSOCIATE Jagdish Zaidi MD LAB_1 Performing Organization Address City/State/ZIP Code Phon e Number HP CONVERSION (ABNORMAL) INR/Protime (04/27/2009 5:00 AM NUTRITION ASSOCIATE) [facility] gist Method Time Signature Prothrombin 21.2 (H) 12.6 - HP CONVERSION Time 15.0 sec INR 1.8 No normal HP CONVERSION range Comment: Recommendations for INR in warfarin ther apy: (Chest, Vol. 119, No. 1, Mar 2000, Suppl ement). Prevention and treatment of venous throm bosis; ? INR 2.0-3.0 Treatment of PE; Prevention of systemic embolism due to prosthetic tissue heart valves, b ileaflet mechanical valves in the aortic position , acute IN, valvular heart disease and atrial fibril lation. Mechanical prosthetic valves, (high risk ). ? INR 2.5-3.5 Prevention of recurrent myocardial infar ct. These recommended ranges serve as guidel mk. Adjustment outside these ranges may be clinically indicated. Specimen (Source) Anatomical Collection Method Collection Time Re ceived Time Location / / Volume Laterality 04/27/2009 5:00 AM NUTRITION ASSOCIATE Pradip Suarez MD LAB_1 Performing Organization Address [facility] Phon e Number HP CONVERSION Creatinine / GFR (04/27/2009 5:00 AM NUTRITION ASSOCIATE) athologist Signature Creatinine 0.7 0.4 - 1.3 HP CONVERSION Serum mg/dL Est GFR >60 >60 HP CONVERSION Am Comment: -Bahamian and Llk-Kpsbbwp-Jygwvjp n reference range units: mL/min/1.73m2 Normal>60, moderate decrease 30 - 59, se meli decrease 15 - 29, renal failure <15 mL/min/1.73 m2 NOTE: Choose the eGFR result above appro priate for the race of the patient. Est GFR Non-Afr Am >60 >60 HP CONVERSI ON Specimen (Source) Anatomical Collection Method Collection Time Re ceived Time Location / / Volume Laterality 04/27/2009 5:00 AM NUTRITION ASSOCIATE Rosalina Saez MD LAB_1 Performing Organization Address City/[facility] Phon e Number HP CONVERSION (ABNORMAL) Electrolyte Panel (04/27/2009 5:00 AM NUTRITION ASSOCIATE) athologist Signature Sodium 143 137 - 147 HP CONVERSION mEq/L Potassium 4.1 3.5 - 5.2 HP CONVERSION mEq/L Chloride 112 (H) 98 - 110 HP CONVERSION mEq/L Bicarbonate 30 23 - 33 HP CONVERSION mmol/L Specimen (Source) Anatomical Collection Method Collection Time Re ceived Time Location / / Volume Laterality 04/27/2009 5:00 AM NUTRITION ASSOCIATE Rosalina Saez MD LAB_1 Performing Organization Address [facility] Phon e Number HP CONVERSION (ABNORMAL) Hemoglobin, Blood (04/27/2009 5:00 AM NUTRITION ASSOCIATE) athologist Signature Hemoglobin 9.9 (L) 11.8 - 15.5 HP CONVERSION gm/dL Specimen (Source) Anatomical Collection Method Collection Time Re ceived Time Location / / Volume Laterality 04/27/2009 5:00 AM NUTRITION ASSOCIATE Pradip Suarez MD LAB_1 Performing Organization Address [facility] Phon e Number HP CONVERSION BEDSIDE GLUCOSE MONITOR (04/26/2009 9:16 PM NUTRITION ASSOCIATE) athologist Signature Bedside Blood 212 mg/dL HP CONVERSION Glucose Test Blood Glucose * No normal HP CONVERSION Screen, range Comment 1 Blood Glucose * No normal HP CONVERSION Screen, range Comment 2 Blood Glucose * No normal HP CONVERSION Screen, range Comment 3 Specimen (Source) Anatomical Collection Method Collection Time Re ceived Time Location / / Volume Laterality 04/26/2009 9:16 PM NUTRITION ASSOCIATE Jagdish Zaidi MD LAB_1 Performing Organization Address [facility] Phon e Number HP CONVERSION BEDSIDE GLUCOSE MONITOR (04/26/2009 7:35 PM NUTRITION ASSOCIATE) athologist Signature Bedside Blood 152 mg/dL HP CONVERSION Glucose Test Blood Glucose * No normal HP CONVERSION Screen, range Comment 1 Blood Glucose * No normal HP CONVERSION Screen, range Comment 2 Blood Glucose * No normal HP CONVERSION Screen, range Comment 3 Specimen (Source) Anatomical Collection Method Collection Time Re ceived Time Location / / Volume Laterality 04/26/2009 7:35 PM NUTRITION ASSOCIATE Jagdish Zaidi MD LAB_1 Performing Organization Address [facility] Phon e Number HP CONVERSION CT Angio Chest W IV Cont PE Study (04/26/2009 7:24 PM NUTRITION ASSOCIATE) Anatomical Region Laterality Modality Chest, Lung, Vascular Other Specimen (Source) Anatomical Location Collection Method / Collectio n Time Received Time / Laterality Volume Impressions 04/26/2009 7:24 PM NUTRITION ASSOCIATE : ??Multiple bilateral pulmonary emboli. ??Critical results called to AGUSTIN GUZMAN at 7:35 p.m. on 04/26/2009. Dictating CONNOR HERNDON RADIOLOGIST Narrative 04/26/2009 7:24 PM NUTRITION ASSOCIATE TECHNIQUE: ??CT of the chest with 100mL of Optiray intravenously was performed using pulmonary embolism maría col. COMPARISON: ??None. FINDINGS: There are multiple pulmonary e mboli in the segmental pulmonary arteries to the upper and lowe r lobes bilaterally. ??There is mild deep tendon atelectasis in both lung bases. ??There is also a peripheral wedge-shaped density in the s uperior segment right lower lobe compatible atelectasis or infarct. ??Lungs are otherwise clear. There is no significant axillary, medias tinal or hilar adenopathy. No pleural or pericardial effusion. ??Vi sualized upper abdominal structures are unremarkable. Procedure Note Connor Martinez MD - 08/31/2015 TECHNIQUE: CT of the chest with 100mL of Optiray intravenously was performed using pulmonary embolism maría col. COMPARISON: None. FINDINGS: There are multiple pulmonary e mboli in the segmental pulmonary arteries to the upper and lowe r lobes bilaterally. There is mild deep tendon atelectasis in both lung bases. There is also a peripheral wedge-shaped density in the s uperior segment right lower lobe compatible atelectasis or infarct. Lungs are otherwise clear. There is no significant axillary, medias tinal or hilar adenopathy. No pleural or pericardial effusion. Visu alized upper abdominal structures are unremarkable. IMPRESSION : Multiple bilateral pulmonary emboli. C ritical results called to AGUSTIN GUZMAN at 7:35 p.m. on 04/26/2009. Dictating [facility] RADIOLOGIST Agustin Guzman DO RAD CT BUN (04/26/2009 6:30 PM NUTRITION ASSOCIATE) athologist Signature Blood Urea 9 5 - 26 HP CONVERSION Nitrogen mg/dL Specimen (Source) Anatomical Collection Method Collection Time Re ceived Time Location / / Volume Laterality 04/26/2009 6:30 PM NUTRITION ASSOCIATE Agustin Guzman DO LAB_1 Performing Organization Address City/State/ZIP Code Phon e Number HP CONVERSION Creatinine / GFR (04/26/2009 6:30 PM NUTRITION ASSOCIATE) athologist Signature Creatinine 0.8 0.4 - 1.3 HP CONVERSION Serum mg/dL Est GFR >60 >60 HP CONVERSION Am Comment: -[place] and [place]-Ofzclqx-Smouodm n reference range units: mL/min/1.73m2 Normal>60, moderate decrease 30 - 59, se meli decrease 15 - 29, renal failure <15 mL/min/1.73 m2 NOTE: Choose the eGFR result above appro priate for the race of the patient. Est GFR Non-Afr Am >60 >60 HP CONVERSI ON Specimen (Source) Anatomical Collection Method Collection Time Re ceived Time Location / / Volume Laterality 04/26/2009 6:30 PM NUTRITION ASSOCIATE Agustin Guzman DO LAB_1 Performing Organization Address City/State/ZIP Code Phon e Number HP CONVERSION (ABNORMAL) Hemogram/Plts/Diff (04/26/2009 6:30 PM NUTRITION ASSOCIATE) [facility] gist Method Time Signature White Blood Cell 11.5 (H) 3.8 - 11.0 HP CONVERSIO N Count k/cmm Red Blood Cell 3.29 (L) 3.70 - HP CONVERSION Count 5.20 m/cmm Hemoglobin 9.7 (L) 11.8 - HP CONVERSION 15.5 gm/dL Hematocrit 29.9 (L) 35.0 - HP CONVERSION 46.0 % Mean Corpuscular 90.8 80.0 - HP CONVERSION Volume 100.0 fl Mean Corpuscular 29.6 27.0 - HP CONVERSION Hemoglobin 34.0 pg Mean Corpuscular 32.6 32.0 - HP CONVERSION Hemoglobin Conc 36.5 gm/dL Agar RDW 14.7 11.0 - HP CONVERSION 15.0 % Platelet Count 234 140 - 450 HP CONVERSION k/cmm Differential Auto-Dif No normal HP CONVERSION Verify range Neutrophils 6.5 2.0 - 7.5 HP CONVERSION Absolute Count k/cmm Neutrophil 56.7 50.0 - HP CONVERSION 75.0 % Lymphocyte % 31.9 20.0 - HP CONVERSION 40.0 % Monocyte 9.5 5.0 - 14.0 HP CONVERSION % Eosinophil 0.9 0.0 - 6.0 HP CONVERSION % Basophil % 1.0 0.0 - 2.0 HP CONVERSION % Specimen (Source) Anatomical Collection Method Collection Time Re ceived Time Location / / Volume Laterality 04/26/2009 6:30 PM NUTRITION ASSOCIATE Agustin A Esala DO LAB_1 Performing Organization Address [facility]/ZIP Code Phon e Number HP CONVERSION Electrolyte Panel (04/26/2009 6:30 PM NUTRITION ASSOCIATE) P athologist Signature Sodium 143 137 - 147 HP CONVERSION mEq/L Potassium 3.7 3.5 - 5.2 HP CONVERSION mEq/L Chloride 107 98 - 110 HP CONVERSION mEq/L Bicarbonate 26 23 - 33 HP CONVERSION mmol/L Specimen (Source) Anatomical Collection Method Collection Time Re ceived Time Location / / Volume Laterality 04/26/2009 6:30 PM NUTRITION ASSOCIATE Agustin Guzman DO LAB_1 Performing Organization Address [facility] Code Phon e Number HP CONVERSION ECG 12 Lead Inpatient (04/26/2009 6:27 PM NUTRITION ASSOCIATE) Specimen (Source) Anatomical Collection Method Collection Time Re ceived Time Location / / Volume Laterality 04/26/2009 6:27 PM NUTRITION ASSOCIATE Narrative HP CONVERSION - 04/26/2009 6:27 PM NUTRITION ASSOCIATE Normal sinus rhythm Normal ECG When compared with ECG of 25-APR-2009 1 8:11, No significant change was found Required Not PN ECG ORDERABLES Performing Organization Address [facility] Code Phon e Number HP CONVERSION (ABNORMAL) INR/Protime (04/26/2009 7:34 AM NUTRITION ASSOCIATE) Patholo gist Method Time Signature Prothrombin 15.8 (H) 12.6 - HP CONVERSION Time 15.0 sec INR 1.3 No normal HP CONVERSION range Comment: Recommendations for INR in warfarin ther apy: (Chest, Vol. 119, No. 1, Mar 2000, Suppl ement). Prevention and treatment of venous throm bosis; ? INR 2.0-3.0 Treatment of PE; Prevention of systemic embolism due to prosthetic tissue heart valves, b ileaflet mechanical valves in the aortic position , acute IN, valvular heart disease and atrial fibril lation. Mechanical prosthetic valves, (high risk ). ? INR 2.5-3.5 Prevention of recurrent myocardial infar ct. These recommended ranges serve as guidel mk. Adjustment outside these ranges may be clinically indicated. Specimen (Source) Anatomical Collection Method Collection Time Re ceived Time Location / / Volume Laterality 04/26/2009 7:34 AM NUTRITION ASSOCIATE Pradip Suarez MD LAB_1 Performing Organization Address City/State/ZIP Code Phon e Number HP CONVERSION (ABNORMAL) Hemoglobin, Blood (04/26/2009 7:34 AM NUTRITION ASSOCIATE) P athologist Signature Hemoglobin 10.2 (L) 11.8 - 15.5 HP CONVERSION gm/dL Specimen (Source) Anatomical Collection Method Collection Time Re ceived Time Location / / Volume Laterality 04/26/2009 7:34 AM NUTRITION ASSOCIATE Pradip Suarez MD LAB_1 Performing Organization Address City/State/ZIP Code Phon e Number HP CONVERSION (ABNORMAL) Hemogram/Plts/Diff (04/25/2009 6:40 PM NUTRITION ASSOCIATE) Patholo gist Method Time Signature White Blood Cell 10.9 3.8 - 11.0 HP CONVERSIO N Count k/cmm Red Blood Cell 3.47 (L) 3.70 - HP CONVERSION Count 5.20 m/cmm Hemoglobin 10.4 (L) 11.8 - HP CONVERSION 15.5 gm/dL Hematocrit 31.8 (L) 35.0 - HP CONVERSION 46.0 % Mean Corpuscular 91.8 80.0 - HP CONVERSION Volume 100.0 fl Mean Corpuscular 30.0 27.0 - HP CONVERSION Hemoglobin 34.0 pg Mean Corpuscular 32.7 32.0 - HP CONVERSION Hemoglobin Conc 36.5 gm/dL Agar RDW 14.7 11.0 - HP CONVERSION 15.0 % Platelet Count 214 140 - 450 HP CONVERSION k/cmm Differential Auto-Dif No normal HP CONVERSION Verify range Neutrophils 8.0 (H) 2.0 - 7.5 HP CONVERSION Absolute Count k/cmm Neutrophil 74.1 50.0 - HP CONVERSION 75.0 % Lymphocyte % 17.2 (L) 20.0 - HP CONVERSION 40.0 % Monocyte 6.4 5.0 - 14.0 HP CONVERSION % Eosinophil 2.1 0.0 - 6.0 HP CONVERSION % Basophil % 0.2 0.0 - 2.0 HP CONVERSION % Specimen (Source) Anatomical Collection Method Collection Time Re ceived Time Location / / Volume Laterality 04/25/2009 6:40 PM NUTRITION ASSOCIATE Maday Burks MD LAB_1 Performing Organization Address [facility] Phon e Number HP CONVERSION ECG 12 Lead Inpatient (04/25/2009 6:11 PM NUTRITION ASSOCIATE) Specimen (Source) Anatomical Collection Method Collection Time Re ceived Time Location / / Volume Laterality 04/25/2009 6:11 PM NUTRITION ASSOCIATE Narrative HP CONVERSION - 04/25/2009 6:11 PM NUTRITION ASSOCIATE Normal sinus rhythm Normal ECG No previous ECGs available Maday Burks MD PN ECG ORDERABLES Performing Organization Address [facility] Phon e Number HP CONVERSION BEDSIDE GLUCOSE MONITOR (04/25/2009 5:44 PM NUTRITION ASSOCIATE) P athologist Signature Bedside Blood 170 mg/dL HP CONVERSION Glucose Test Blood Glucose * No normal HP CONVERSION Screen, range Comment 1 Blood Glucose * No normal HP CONVERSION Screen, range Comment 2 Blood Glucose * No normal HP CONVERSION Screen, range Comment 3 Specimen (Source) Anatomical Collection Method Collection Time Re ceived Time Location / / Volume Laterality 04/25/2009 5:44 PM NUTRITION ASSOCIATE Jagdish Zaidi MD LAB_1 Performing Organization Address [facility] Phon e Number HP CONVERSION INR/Protime (04/25/2009 3:55 PM NUTRITION ASSOCIATE) Analysis Performed At Patho logist Time Signature Prothrombin Time 14.8 12.6 - 15.0 HP CONVERSI ON sec INR 1.2 No normal HP CONVERSION range Comment: Recommendations for INR in warfarin ther apy: (Chest, Vol. 119, No. 1, Mar 2000, Suppl ement). Prevention and treatment of venous throm bosis; ? INR 2.0-3.0 Treatment of PE; Prevention of systemic embolism due to prosthetic tissue heart valves, b ileaflet mechanical valves in the aortic position , acute IN, valvular heart disease and atrial fibril lation. Mechanical prosthetic valves, (high risk ). ? INR 2.5-3.5 Prevention of recurrent myocardial infar ct. These recommended ranges serve as guidel mk. Adjustment outside these ranges may be clinically indicated. Specimen (Source) Anatomical Collection Method Collection Time Re ceived Time Location / / Volume Laterality 04/25/2009 3:55 PM NUTRITION ASSOCIATE Pradip Suarez MD LAB_1 Performing Organization Address City/State/ZIP Code Phon e Number HP CONVERSION XR Knee Lt AP And Lateral (04/25/2009 10:30 AM NUTRITION ASSOCIATE) Anatomical Region Laterality Modality Lower Extremity, Knee Other Specimen (Source) Anatomical Location Collection Method / Collectio n Time Received Time / Laterality Volume Narrative 04/25/2009 10:30 AM NUTRITION ASSOCIATE COMPARISON: 07/06/2008 FINDINGS: Left knee 2 views. ??There are new postoperative changes of left total knee arthroplasty. ??Alignmen t is normal. The medial joint space appears narrowed, though this may be positional. ?? There is no fracture. ??Surgical drain and skin stap les are present. Dictating MRABIN BOX MD Procedure Note Marbin Vidales - 08/31/2015Formatting o f this note might be different from the original. COMPARISON: 07/06/2008 FINDINGS: Left knee 2 views. There are n ew postoperative changes of left total knee arthroplasty. Alignment is normal. The medial joint space appears narrowed, though this may be positional. There is no fracture. Surgical drain and skin staple s are present. Dictating MARBIN BOX MD Jagdish Zaidi MD RAD GD MRSA Culture (04/25/2009 6:40 AM NUTRITION ASSOCIATE) Analysis Performed At [facility] Time Signature Culture Mrsa SEE TEXT HP CONVERSION Screen Comment: Patient: YAZ SANTAMARIA Culture, MRSA Screen ?Collected: ??[id number] Source: JULES ? Processed: ??[id number] ? JULES Final Report ------ ?[id number] No Methicillin resistant Staph aureus is olated. Specimen (Source) Anatomical Collection Method Collection Time Re ceived Time Location / / Volume Laterality 04/25/2009 6:40 AM NUTRITION ASSOCIATE Shanice Boyd MD LAB_1 Performing Organization Address City/[facility] Code Phon e Number HP CONVERSION BEDSIDE GLUCOSE MONITOR (04/25/2009 6:10 AM NUTRITION ASSOCIATE) P athologist Signature Bedside Blood 118 mg/dL HP CONVERSION Glucose Test Blood Glucose * No normal HP CONVERSION Screen, range Comment 1 Blood Glucose * No normal HP CONVERSION Screen, range Comment 2 Blood Glucose * No normal HP CONVERSION Screen, range Comment 3 Specimen (Source) Anatomical Collection Method Collection Time Re ceived Time Location / / Volume Laterality 04/25/2009 6:10 AM NUTRITION ASSOCIATE Jagdish Zaidi MD LAB_1 Performing Organization Address City/[facility] Code Phon e Number HP CONVERSION Potassium (04/25/2009 5:40 AM NUTRITION ASSOCIATE) athologist Signature Potassium 4.2 3.5 - 5.2 HP CONVERSION mEq/L Specimen (Source) Anatomical Collection Method Collection Time Re ceived Time Location / / Volume Laterality 04/25/2009 5:40 AM NUTRITION ASSOCIATE Jagdish Zaidi MD LAB_1 Performing Organization Address [facility] Phon e Number HP CONVERSION documented in this encounter Visit Diagnoses Not on filedocumented in this encounter Care Teams Fisher Trap Relationship Specialty Start Date End Date Unassigned, Provider PCP - General 03/27/00 06/16/[address] [place] [id number] documented as of this encounter
--- OUTSIDE RECORDS SUMMARY | 2022-01-12 12:46 | XMS_ITS | Encounter Summary ---
:1955 [facility] Address [address] [place] [address] Care Team Providers Name Role Phone Unassigned, Provider Primary Care Provider Unavailable Reason for Visit Reason Onset Date Comments QUESTIONS, GENERAL 09/28/2007 Encounter Details Date Type Department Care Team Description 09/28/2007 Telephone [facility] Unassigned, Provider QUESTIONS, GENERAL [address] [place] [address] [place] [address] Social History Tobacco Use Types Packs/Day Years Used Date Smoking Tobacco: Former Alcohol Use Standard Drinks/Week Comments No 0 (1 standard drink = 0.6 oz pure alcoho l) Recovering alcoholic Sex Assigned at Date Recorded Not on file documented as of this encounter Nursing Notes Caitlin Jauregui - 09/28/2007 12:17 PM CDT Returned patient's call. Please see [facility] documentation for full detail. Caitlin Jauregui, Pharm D Daphne José - 09/28/2007 10:42 AM CDT Patient would like to speak to her either provider or nurse. Name of patient's provider: Catilin Question regarding: Medication Summarize the patient's question or concern:Pt's is calling into the clinic in regards to want to talk with caitlin about her medication profile. Daphne Stanley documented in this encounter Plan of Treatment Not on filedocumented as of this encounter Visit Diagnoses Not on filedocumented in this encounter Care Teams Stock Puller Relationship Specialty Start Date End Date Unassigned, Provider PCP - General 03/27/00 06/16/[address] [place] [id number] documented as of this encounter
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
--- OUTSIDE RECORDS SUMMARY | 2022-01-12 12:46 | XMS_ITS | Encounter Summary ---
:1955 Author Organization [facility] Address [address], [place] [address] Care Team Providers Name Role Phone Denise Harris MD Primary Care Provider Encounter Details Date Type Department Care Team Description 01/26/2003 PN Conversion Only [facility] CONVERSI ON [address] [place] [address] Social History Tobacco Use Types Packs/Day Years Used Date Smoking Tobacco: Never Assessed Sex Assigned at Date Recorded Not on file documented as of this encounter Plan of Treatment Not on filedocumented as of this encounter Visit Diagnoses Not on filedocumented in this encounter Care Teams Executive Director Contract Shop Relationship Specialty Start Date End Date Denise Harris MD PCP - General 06/17/10 10/[address] [place] [address] documented as of this encounter
--- OUTSIDE RECORDS SUMMARY | 2022-01-12 12:46 | XMS_ITS | Encounter Summary ---
:1955 Author Organization [facility] Address [address] [address] Care Team Providers Name Role Phone Denise Harris MD Primary Care Provider Encounter Details Date Type Department Care Team Description 07/28/2000 Therapy [facility] herAnna Cabrera [address] [place] [address] Social History Tobacco Use Types Packs/Day Years Used Date Smoking Tobacco: Never Assessed Sex Assigned at Date Recorded Not on file documented as of this encounter Plan of Treatment Not on filedocumented as of this encounter Visit Diagnoses Not on filedocumented in this encounter Care Teams Mat Machine Tender Relationship Specialty Start Date End Date Denise Harris MD PCP - General 06/17/10 10/05/[address] [place] [address] documented as of this encounter
--- OUTSIDE RECORDS SUMMARY | 2022-01-12 12:46 | XMS_ITS | Encounter Summary ---
:1955 Author Organization [facility] Address [address], [place] [address] Care Team Providers Name Role Phone Unassigned, Provider Primary Care Provider Unavailable Reason for Visit Reason Onset Date Comments MEDICATION REVIEW AND EDUCATION 09/28/2007 Encounter Details Date Type Department Care Team Description 09/28/2007 Telephone [facility] Vianney Jauregui, MEDICATION REVIEW AND [address] [place] [address] [address] [phone] [place], [place] [address] [phone] ( rk) Social History Tobacco Use Types Packs/Day Years Used Date Smoking Tobacco: Former Alcohol Use Standard Drinks/Week Comments No 0 (1 standard drink = 0.6 oz pure alcoho l) Recovering alcoholic Sex Assigned at Date Recorded Not on file documented as of this encounter Patient Instructions Patient InstructionsPeasha Vianney - 09/29/2007 9:30 AM CDT Yaz, It was a pleasure talking with you today. Below is a summary of your phone conversation. Please feelfree to call me with any questions or concerns. 1) Indomethacin has been shown to increase depression or cause increased mental health problems withuse. This generally occurs with long-term use, but certain problems including feelings of psychosis have been seen after 6 days of therapy. 2) If your concerns continue after 6 days of therapy, or if you start to feel more depressed or haveworsening symptoms that are uncomfortable to you let your doctor know right away. The mental health concerns did resolve when patients stopped indomethacin. 3) Indomethacin does not have any direct interactions with your current medications. 4) Because the indomethacin is helping well with pain it may be worth waiting things out a bit. Improvements in your pain may help to reduce some of the other effects you are seeing such as worsening depression. Make an appointment with Medication Therapy Management Clinical Pharmacist as needed for follow-up evaluation. Please call me at [phone], if you have questions. Vianney Jauregui, Pharm D documented in this encounter Nursing Notes Vianney Jauregui - 09/29/2007 9:26 AM CDT S Yaz Multani was referred to Medication Therapy Management Services by self-referral for medication review/education. Yaz calls this morning with concerns about her new pain medication, indomethacin 50mg 1 tablet by mouth three times per day. Since starting indomethacin on Friday Reginereports an increased feeling of alienation, worsening depression, and the feeling of increased anxiety without related attack. This is frustrating to Yaz as she is getting good pain relief from the indomethacin. Recently her cymbalta dose was also increased to 120mg daily, which had been working well for her mental health concerns until Friday. Yaz has a history of being sensitive to medications in terms of her depression. Yaz is looking for more information on possible drug interactions or potential side effects that would effect mental health related to indomethacin. O ALLERGIES: No Known Allergies. PROBLEM LIST: chronic pain, arthritis, HTN, depression History Tobacco Use ??? Quit ASPIRIN USE: No No vitals taken, phone consult No labs available, non-[facility] patient A Total of drug therapy problem identified and to be resolved: 1 1. Medical condition and drug therapy involved: chronic pain and indomethacin Drug therapy problem: Potential adverse reactions present, increased depression and psychosis. Patient complianing of down mood and increased alienation since starting indomethacin. Literature reports chronic use of indomethacin may lead to worsening depression and several case studies show an increase in psychosis after 6 days of therapy. P 1) Patient will continue Indomethacin for pain until Friday as it is helping pain relief significantly. If depression, alienation or other symptoms worsen she will stop indomethacin and contact her physician immediately. 2) Discussed with patient the potential side effects of indomethacin. Patient verbalizes understanding that there are no direct interactions between indomethacin and her other medications, but it alonecan cuase mental health side effects. 3) Patient to make appointment with Medication Therapy Management Pharmacist in 1 week(s) for follow-up evaluation. 4) A copy of the After Visit Summary was mailed to patient, details were reviewed by me and all questions were answered. Updated [facility] med list and reviewed medications including indications with patient. Total time spent with patient 30 minutes. Vianney Jauregui, Pharm D Medication Therapy Management Program documented in this encounter Plan of Treatment Not on filedocumented as of this encounter Visit Diagnoses Not on filedocumented in this encounter Care Teams Lead Teller Relationship Specialty Start Date End Date Unassigned, Provider PCP - General 03/27/00 06/16/[address] [place] [address] documented as of this encounter
--- OUTSIDE RECORDS SUMMARY | 2022-01-12 12:46 | XMS_ITS | Encounter Summary ---
:1955 Author Organization [facility] Address [address] [address] Care Team Providers Name Role Phone Denise Harris MD Primary Care Provider Encounter Details Date Type Department Care Team Description 09/07/2001 Therapy [facility] Anna Mohan [address] [place] [address] Social History Tobacco Use Types Packs/Day Years Used Date Smoking Tobacco: Never Assessed Sex Assigned at Date Recorded Not on file documented as of this encounter Plan of Treatment Not on filedocumented as of this encounter Visit Diagnoses Not on filedocumented in this encounter Care Teams Supervisor Capacitor Processing Relationship Specialty Start Date End Date Denise Harris MD PCP - General 06/17/10 10/05/[address] [place] [address] documented as of this encounter
--- OUTSIDE RECORDS SUMMARY | 2022-01-12 12:46 | XMS_ITS | Encounter Summary ---
:1955 Author Organization [facility] Address [address] [address] Care Team Providers Name Role Phone Denise Harris MD Primary Care Provider Encounter Details Date Type Department Care Team Description 03/24/2009 PN Conversion Only [facility] [address] [place] [address] Social History Tobacco Use Types Packs/Day Years Used Date Smoking Tobacco: Former Alcohol Use Standard Drinks/Week Comments No 0 (1 standard drink = 0.6 oz pure alcoho l) Recovering alcoholic Sex Assigned at Date Recorded Not on file documented as of this encounter Plan of Treatment Not on filedocumented as of this encounter Visit Diagnoses Not on filedocumented in this encounter Care Teams Duct Layer Relationship Specialty Start Date End Date Denise Harris MD PCP - General 06/17/10 10/05/[address] [place] [address] documented as of this encounter
--- OUTSIDE RECORDS SUMMARY | 2022-01-12 12:46 | XMS_ITS | Encounter Summary ---
:1955 Author Organization [facility] Address [address] [address] Care Team Providers Name Role Phone Denise Harris MD Primary Care Provider Encounter Details Date Type Department Care Team Description 03/27/2009 Office Visit [facility] Joshua Pires MD [address] [facility] [address] [facility] [address] [place] [address] [place], [place] [address] (Wo rk) Social History Tobacco Use Types Packs/Day Years Used Date Smoking Tobacco: Former Alcohol Use Standard Drinks/Week Comments No 0 (1 standard drink = 0.6 oz pure alcoho l) Recovering alcoholic Sex Assigned at Date Recorded Not on file documented as of this encounter Progress Notes Joshua Zaidi MD - 03/27/2009 12:01 AM CST Progress Notes signed by Joshua Zaidi MD at 04/02/09 1502 Author: Joshua Zaidi MD Service: (none) Author Type: Physician Filed: 07/07/101920 Note Time: 03/27/09 0001 Status: Signed Stockbroker: Joshua Zaidi MD (Physician) NAME: FANTA GREGORIO ACCT: [id number] DICTATING CLINICIAN: JOSHUA ZAIDI MD JOB: [id number] LOC: 9977 CLINIC PROGRESS NOTE DATE OF VISIT: 03/27/2009 CHIEF COMPLAINT: Bilateral knee pain, left greater than right. HISTORY OF THE PRESENT ILLNESS: Fanta is a pleasant 53-year-old who is referred to us by Dr. Vivek Man for a total joint arthroplasty. She states that she has had left greater than right knee pain for a number of years now and has undergone multiple conservative measures. She has tried a Synvisc series which has failed to help her in any significant manner. She has tried a steroid injection which also failed to help her in any significant manner in both knees and she has tried various aquatic therapy and physical therapies. She states at this point she wishes to undergo bilateral total knee replacement as she rates her pain as some days an 8-9/10. The right does not bother her nearly as significantly, but the left bothers her with activities of daily living such as walking, stair climbing and doing things around the house. We have seen her in the past for a partial medial meniscectomy and lateral meniscal repair that was done on 01/08/2005. She gets some relief with resting and icing, and also with antiinflammatory medications, but not to any significant degree. PAST MEDICAL HISTORY: Significant for fibromyalgia, arthritis, high blood pressure, degenerative disk disease. PAST SURGICAL HISTORY: Arthroscopies on bilateral knees, the left in 1998, and the right in 2004. She had a history of a herniated disk that was not operated on in 2005. MEDICATIONS: Cymbalta 60 mg b.i.d., gabapentin 300 mg 5 times a day, amitriptyline 50 mg 1 time per day. ADR/ALLERGIES: None. SOCIAL HISTORY: She currently lives with her works for the [employer]. She does admit to alcohol, but has been sober for 23 years. Denies other illicits and denies tobacco. REVIEW OF SYSTEMS: She does have weight gain, fatigue, wears glasses, gets rashes, has heartburn, chronic back pain, arthritis, joint pains, numbness and tingling, loss of balance, depression, however, denies chest pain, shortness of breath, change in bowel or bladder habits or mental status changes. FAMILY HISTORY: Has a history of her father with cancer, father with diabetes and father with heart disease. PHYSICAL EXAMINATION: In general she is an obese 53-year-old female in no acute distress. RIGHT KNEE: She demonstrates tenderness along the medial joint line, however, has no effusion present today. She has a negative Babatunde's. She has a negative anterior and posterior drawer and no laxity with varus and valgus stress testing. She demonstrates a negative Crescencio's. She does have patellofemoral crepitus, however, has a negative patellar compression test. She has normal movement to 1 quadrant both medially and laterally. Range of motion on the right is from 0 to 140 degrees. Pulses are intact distally at the dorsalis pedis and posterior tibialis. She demonstrates intact light touch sensation in L3-S1. Her skin demonstrates previous arthroscopic portal incisions, however, no other evidence of erythema or ecchymosis or other surgical incisions. LEFT KNEE: Demonstrates range of motion from 5 to 130 degrees. Again previous arthroscopic portal incisions are noted. Distally she has intact pulses at the dorsalis pedis and posterior tibialis. Light touch sensation is intact at L3-S1. She demonstrates a negative Babatunde's test both for pain or click. She does have tenderness to palpation over the medial joint line and within the patellofemoral compartment. She demonstrates a positive patellar grind test. She has normal movement to 1 quadrant both medially and laterally. She has a trace effusion present today. IMAGING: Images scanned in from an outside institution. AP, lateral and merchant views from bilateral knees are reviewed today. She does have significant loss of joint space in the medial compartment of the left knee. There is osteophyte formation. She has also some early signs of degenerative joint disease in the patellofemoral articulation. There is no other evidence of fracture or dislocation. With regards to the right knee she also demonstrates a mild loss of joint space in the medial compartment. Other than that she does appear to have intact patellofemoral and lateral compartments. There is no other evidence for fracture or dislocation here either. In both knees she shows evidence of chondrocalcinosis. IMPRESSION: Degenerative joint disease, bilateral knees. PLAN: We would like to start her on Indocin to help relieve her of her symptoms in her right knee as this seems to be the knee that is less involved. With regards to the left knee, however, we will go ahead and plan a left total knee arthroplasty as she is symptomatic and failed conservative management. DICTATED BY KATALINA ELKINS MD FOR JOSHUA ZAIDI MD I have personally examined this patient, and have reviewed the clinical presentation and progress note, including the pertinent radiographs, with the fellow. I agree with the treatment plan as outlined. The plan was formulated with the fellow on the day of the dictation and personally edited by me where appropriate. I personally discussed the treatment plan with the patient. CC: Vivek Man MD DOCUMENT: [id number] INE WIPER documented in this encounter Plan of Treatment Not on filedocumented as of this encounter Visit Diagnoses Not on filedocumented in this encounter Care Teams Crankshaft Straightener Relationship Specialty Start Date End Date Denise Harris MD PCP - General 06/17/10 10/05/181999 [place] [address] documented as of this encounter
--- OUTSIDE RECORDS SUMMARY | 2022-01-12 12:46 | XMS_ITS | Encounter Summary ---
:1955 Author Organization [facility] Address [address] [place] [address] Care Team Providers Name Role Phone Denise Harris MD Primary Care Provider Encounter Details Date Type Department Care Team Description 03/20/2005 Office Visit [facility] Jagdish Contreras MD [address] [facility] [address] [facility] [place] [address] [place], [place] [address] (Wo rk) Social History Tobacco Use Types Packs/Day Years Used Date Smoking Tobacco: Never Assessed Sex Assigned at Date Recorded Not on file documented as of this encounter Plan of Treatment Not on filedocumented as of this encounter Visit Diagnoses Not on filedocumented in this encounter Care Teams Mechanical Maintenance Relationship Specialty Start Date End Date Denise Harris MD PCP - General 06/17/10 10/05/[address] [place] [address] documented as of this encounter
--- OUTSIDE RECORDS SUMMARY | 2022-01-12 12:46 | XMS_ITS | Encounter Summary ---
:1955 Author Organization [facility] Address [address] [place] [address] Care Team Providers Name Role Phone Denise Harris MD Primary Care Provider Encounter Details Date Type Department Care Team Description 05/05/2009 Office Visit [facility] Joshua Pires MD [address] [facility] [address] [place] [address] [address] [place] [address] [phone] (Wo rk) Social History Tobacco Use Types Packs/Day Years Used Date Smoking Tobacco: Former Alcohol Use Standard Drinks/Week Comments No 0 (1 standard drink = 0.6 oz pure alcoho l) Recovering alcoholic Sex Assigned at Date Recorded Not on file documented as of this encounter Progress Notes Joshua Zaidi MD - 05/05/2009 12:01 AM CST Progress Notes signed by Joshua Zaidi MD at 05/10/09 1326 Author: Joshua Zaidi MD Service: (none) Author Type: Physician Filed: 07/07/102019 Note Time: 05/05/09 0001 Status: Signed Traveling Construction Superintendent: Joshua Zaidi MD (Physician) NAME: FANTA GREGORIO VISIT: [id number] DICTATING CLINICIAN: JOSHUA ZAIDI MD JOB: [id number] LOC: 3711 CLINIC PROGRESS NOTE DATE OF VISIT: 05/05/2009 Fanta is a 53-year-old that is coming in today for a postop visit. She underwent left knee total arthroplasty on 04/25/2009. She is now 10 days out from surgery. She has been staying in transitional care at [facility]. She is very happy with her care there. She has continued to progress on her physical therapy. Once she is discharged from the facility in approximately a week, she would like to attend physical therapy at [facility]. Fanta's postop recovery has been complicated with a PE. She is currently taking Coumadin and followed by Dr. Denise Harris. Her pain has been well controlled. She has had no signs of infection. She has no questions or concerns today. On physical exam Fanta is a very alert, cooperative woman in no apparent distress. She is ambulating in a wheelchair. Her incisions are clean, dry, and intact and show no signs of infection. She has moderate ecchymosis, 1+ effusion. Her thigh and calf are soft and nontender. Range of motion is full extension to 90 degrees of flexion. She is otherwise neurovascularly intact. ASSESSMENT: Left total knee arthroplasty on 04/25/2009; ten days. PLAN: 1. Yan were removed from her incisions today. They were then dressed with Steri-Strips. Wound care instructions were discussed and she verbalizes understanding. 2. She is encouraged to continue with her physical therapy. An authorization for therapy once she is discharge from transitional care was given. She is to follow up in 1 month's time. Should she have any questions or concerns in the meantime, she is encouraged to call clinic. DOCUMENT: [id number] ING CLINICIAN documented in this encounter Plan of Treatment Not on filedocumented as of this encounter Visit Diagnoses Not on filedocumented in this encounter Care Teams Peanut Farmer Relationship Specialty Start Date End Date Denise Harris MD PCP - General 06/17/10 10/05/[address] [place] [address] documented as of this encounter
--- OUTSIDE RECORDS SUMMARY | 2022-01-12 12:46 | XMS_ITS | Encounter Summary ---
:1955 Author Organization [facility] Address [address] [address] Care Team Providers Name Role Phone Denise Harris MD Primary Care Provider Encounter Details Date Type Department Care Team Description 07/22/2003 PN Conversion Only [facility] [facility] [address] [place] [address] Social History Tobacco Use Types Packs/Day Years Used Date Smoking Tobacco: Never Assessed Sex Assigned at Date Recorded Not on file documented as of this encounter Plan of Treatment Not on filedocumented as of this encounter Visit Diagnoses Not on filedocumented in this encounter Care Teams Head Of English Relationship Specialty Start Date End Date Denise Harris MD PCP - General 06/17/10 10/05/[address] [place] [address] documented as of this encounter
--- OUTSIDE RECORDS SUMMARY | 2022-01-12 12:46 | XMS_ITS | Encounter Summary ---
:1955 Author Organization [facility] Address [address], [place] [address] Care Team Providers Name Role Phone Denise Harris MD Primary Care Provider Encounter Details Date Type Department Care Team Description 03/31/2002 Therapy [facility] Anna Mohan [address] [place] [address] Social History Tobacco Use Types Packs/Day Years Used Date Smoking Tobacco: Never Assessed Sex Assigned at Date Recorded Not on file documented as of this encounter Plan of Treatment Not on filedocumented as of this encounter Visit Diagnoses Not on filedocumented in this encounter Care Teams Game Protector Relationship Specialty Start Date End Date Denise Harris MD PCP - General 06/17/10 10/05/[address] [facility] [place] [address] documented as of this encounter
--- OUTSIDE RECORDS SUMMARY | 2022-01-12 12:47 | XMS_ITS | Encounter Summary ---
:1955 Author Organization [facility] Address [address] [place] [address] Care Team Providers Name Role Phone Denise Harris Primary Care Provider Yuly Anoop Unavailable Inez Peck See Luis Antonio GARZA Unavailable Reason for Visit Reason Onset Date Comments Pre Visit Planning - Done 10/26/2020 Encounter Details Date Type Department Care Team Description 10/26/2020 PRE VISIT [facility] Inez Peck Pre Vi sit Planning - Urology Clinic MD Luis Antonio Done [place] [address] [facility] [address] [place], [place] [address] [phone] Social History Tobacco Use Types Packs/Day Years Used Date Smoking Tobacco: Former Smokeless Tobacco: Never Comments: quit 1986 Alcohol Use Standard Drinks/Week Comments Not Asked 0 (1 standard drink = 0.6 oz pure alcoho l) Sex Assigned at Date Recorded Female 10/30/2020 4:00 PM CDT documented as of this encounter Miscellaneous Notes Telephone Encounter - Shira Seth CMA - 10/26/2020 11:40 AM CDT Reason for visit: PFD Relevant information: history of chronic pain syndrome, diabetes Records/imaging/labs/orders: records available Pt called: no need for a call At Rooming: collect a urine/pvr documented in this encounter Plan of Treatment Not on filedocumented as of this encounter Visit Diagnoses Not on filedocumented in this encounter Care Teams Training Executive Relationship Specialty Start Date End Date Denise Harris PCP - General Internal Medicine 01/17/15 [facility] [address] [place] [address] Anoop Emery Referring Physician Family Medicine 09/15/20 [facility] [address] [place] [address] Inez Peck MD MD Urology 09/15/[address] [place] [address] [address] [place] [address] documented as of this encounter
--- OUTSIDE RECORDS SUMMARY | 2022-01-12 12:47 | XMS_ITS | Encounter Summary ---
:1955 Author Organization [facility] Address [address] [place] [address] Care Team Providers Name Role Phone Denise Harris Primary Care Provider Anoop Emery Unavailable Inez Peck MD Unavailable Reason for Visit Reason Onset Date Comments Previsit 11/02/2020 Encounter Details Date Type Department Care Team Description 11/02/2020 PRE VISIT [facility] Urology Natanael Peck MD Previsit Clinic [address] [place] [address] [phone] Social History Tobacco Use Types Packs/Day Years Used Date Smoking Tobacco: Former Smokeless Tobacco: Never Comments: quit 1986 Alcohol Use Standard Drinks/Week Comments Not Asked 0 (1 standard drink = 0.6 oz pure alcoho l) Sex Assigned at Date Recorded Female 10/30/2020 4:00 PM CDT documented as of this encounter Miscellaneous Notes Telephone Encounter - Nicol Mitchell - 09/25/2020 1:47 PM CDT MEDICAL RECORDS REQUEST [facility] [address] [place] [address] PHONE: [phone] FUTURE VISIT INFORMATION Yaz Multani, : 1955 scheduled for future visit at [facility] APPOINTMENT INFORMATION: ?? Date: 11.02.20 ?? Provider: 2:15 PM ?? Reason for Visit/Diagnosis: Pelvic floor dysfunction in female REFERRAL INFORMATION: ?? Referring provider: Dr. Anoop Emery ?? Specialty: ?? Referring providers clinic: [facility] RECORDS REQUESTED FOR VISIT NOTES STATUS/DETAILS OFFICE NOTE from referring provider yes OFFICE NOTE from other specialist yes DISCHARGE SUMMARY from hospital no DISCHARGE REPORT from the ER no OPERATIVE REPORT no MEDICATION LIST yes LABS URINALYSIS (UA) yes URINE CYTOLOGY no documented in this encounter Plan of Treatment Not on filedocumented as of this encounter Visit Diagnoses Not on filedocumented in this encounter Additional Health Concerns Assessment Noted Time PHQ-9 Depression Total Score: 3 11/02/2020 2:35 PM CDT documented as of this encounter Care Teams Dance Costume Designer Relationship Specialty Start Date End Date Denise Harris PCP - General Internal Medicine 01/17/15 [facility] [address] [place] [address] Anoop Emery Referring Physician Family Medicine 09/15/20 [facility] [address] [place] [address] Inez Peck MD MD Urology 09/15/[address] [place] [id number] documented as of this encounter
--- OUTSIDE RECORDS SUMMARY | 2022-01-12 12:47 | XMS_ITS | Encounter Summary ---
:1955 Author Organization [facility] Address [address] [place] [address] Care Team Providers Name Role Phone Denise Harris Primary Care Provider Reason for Visit Reason Onset Date Comments Results 02/06/2015 [facility] 01-31-15 Encounter Details Date Type Department Care Team Description 02/06/2015 Telephone [facility] Sh[facility], Results ([facility] Svetlana Loza MD 01-31-15 ) [place] [id number] [place], [place] [phone] (Wo rk) Social History Tobacco Use Types Packs/Day Years Used Date Smoking Tobacco: Former Comments: quit 1986 Alcohol Use Standard Drinks/Week Comments Not Asked 0 (1 standard drink = 0.6 oz pure alcoho l) Sex Assigned at Date Recorded Female 10/30/2020 4:00 PM CDT documented as of this encounter Miscellaneous Notes Telephone Encounter - Mulu Hugo RN - 02/17/2015 11:33 AM CST Spoke to Nanette, she will call patient to set up monitor. Ric CARDOSO 11:33 AM TRESSED CONCRETE LABORER Telephone Encounter - Mulu Hugo RN - 02/07/2015 5:04 PM CST Spoke to to patient reviewed Dr. Frey's recommendations. I will have Cardiopulmonary or scheduling call her tomorrow to set up monitor. Ric RN 5:05 PM TRESSED CONCRETE LABORER Telephone Encounter - Mulu Hugo RN - 02/07/2015 11:52 AM CST Left message for patient to call back to review. Ric CARDOSO 11:53 AM TRESSED CONCRETE LABORER Telephone Encounter - Svetlana Frey MD - 02/06/2015 5:36 PM PRESTRESSED CONCRETE LABORER Please call patient and let her know holter was benign and we have ordered mobile telemetry. Please communicate the need for hypoallergenic contacts to the telemetry people TRESSED CONCRETE LABORER documented in this encounter Plan of Treatment Not on filedocumented as of this encounter Visit Diagnoses Not on filedocumented in this encounter Care Teams Food Service Representative Relationship Specialty Start Date End Date Denise Harris PCP - General Internal Medicine 01/17/15 [facility] [address] [place] [address] documented as of this encounter
--- OUTSIDE RECORDS SUMMARY | 2022-01-12 12:47 | XMS_ITS | Encounter Summary ---
:1955 Author Organization [facility] Address [address] [place] [address] Care Team Providers Name Role Phone Denise Harris Primary Care Provider Reason for Visit Reason Comments Heart Problem NEW PATIENT* appt for newly diagnosed diastolic dysfunction. Encounter Details Date Type Department Care Team Description 02/06/2015 Office Visit [facility] Bobby Frey ic dysfunction; Heart Clinic Jhonny Loza MD Palpitations [place] [facility] [id number] [place] [address] [place] [address] [place], [place] [phone] [id number] Social History Tobacco Use Types Packs/Day Years Used Date Smoking Tobacco: Former Comments: quit 1986 Alcohol Use Standard Drinks/Week Comments Not Asked 0 (1 standard drink = 0.6 oz pure alcoho l) Sex Assigned at Date Recorded Female 10/30/2020 4:00 PM CDT documented as of this encounter Last Filed Vital Signs Vital Sign Reading Time Taken Comments Blood Pressure 124/74 02/06/2015 2:50 PM RATCHET SETTER Pulse 66 02/06/2015 2:50 PM RATCHET SETTER Temperature - - Respiratory Rate - - Oxygen Saturation - - Inhaled Oxygen Concentration - - Weight 119.7 kg (264 lb) 02/06/2015 2:50 PM RATCHET SETTER Height 175.3 cm (5' 9) 02/06/2015 2:50 PM RATCHET SETTER Body Mass Index 38.99 02/06/2015 2:50 PM RATCHET SETTER documented in this encounter Progress Notes Jhonny Frey MD - 02/07/2015 8:45 AM CST HISTORY OF PRESENT ILLNESS: This is a new patient evaluation, referred for diastolic dysfunction on echo and bradycardia while sleeping. Ms. Dilcia Multani is a very pleasant 59-year-old lady who has sleep apnea for which she is using CPAP with 2 liters of oxygen at night. She has some degree of lung disease, with spirometry suggestingprobable restrictive disease but apparently maneuvers were not reproducible. Her oxygen levels appeared to be quite well-maintained in the high 90s, but she was referred to Pulmonology whose note we do not have available, but who apparently ordered an echocardiogram which is really largely normal for her age. She has mildly enlarged atrium and a grade 2 diastolic dysfunction which is likely age appropriate, particularly in the setting of the patient's hypertension history. She had a CT of the chest without significant abnormalities and certainly without effusions. Ms. Dilcia Multani states that she is very groggy in the morning when she awakes and seems to feel a vague pressure in her chest as well as some shortness of breath. This has been going on for more than 6 months. The pressure and shortness of breath is not exertional. She states she tries to play Scrabble, but cannot stay awake in the morning and is just dozy. She does not describe this as effort intolerance. She attributes her symptoms to chondritis which she has had which has been longstanding aswell. She staunchly denies any limiting dyspnea on exertion or certainly reproduction of any chest discomfort on exertion. She is reasonably active without limitation. She states that shortness of breath is not an issue. She does, however, occasionally get palpitations which she states have been longstanding, perhaps once a week. She was given a Holter monitor as apparently she had heart rates in the 50s while sleepingand the Holter was quite benign. She states she did not have any of her typical palpitations when she had a Holter monitor on, however. She is diabetic and hypertensive. Denies dyslipidemia. Denies a family history of premature coronarydisease but admits to tobacco abuse, but only until 1986. She has no other cardiorespiratory complaints of orthopnea, PND, lightheadedness, presyncope, syncope or pedal edema. ASSESSMENT AND PLAN: A 59-year-old lady with age-appropriate diastology. She has no limiting complaints. There is nothing that I would want to do further from a cardiac standpoint with respect to her echo results Her heart rate going into the low 50s while she is sleeping or even high 140s is of no consequence. It is a normal physiological phenomenon. She does, however, get palpitations occasionally and in the setting of her sleep apnea, I think it would be reasonable to survey for atrial fibrillation given what would be an elevated CHADS risk score with risk factors of diabetes, hypertension and female gender. We will go ahead and order a mobile telemetry, but will request hypoallergenic contacts given her allergy to adhesive. The patient is not on an MIMA or ARB, nor is she on a statin which would be outcomes-driven measures for her primary physician to consider in the setting of her diagnosis of diabetes. I will defer this to her primary physician and she is going to bring it up with him or her at their imminent visit. We will communicate the results of the monitor to her and make further recommendations at that time.We have discussed that a negative monitor even for a month unfortunately does not preclude atrial fibrillation and she could consider at least taking a baby aspirin for prevention of thromboembolism. Ho ling, certainly if she has atrial fibrillation, it would be inadequate for stroke prevention and Coumadin or novel anticoagulant would be recommended. Total time is 45 minutes, 40 in coordination, care and counseling. Jhonny Frey MD cc: [place] [address] JHONNY FREY MD MT: al Name: YAZ COUGHLIN MRN: [id number] Account: [id number] : 1955 Service Date: 02/06/2015 Document: [id number] HET SETTER Jhonny Frey MD - 02/06/2015 5:34 PM CST DIAGNOSES: Encounter Diagnoses Name Primary? Hypertension Yes ??? Diastolic dysfunction HPI: See dictation MEDICATIONS: Current Outpatient Prescriptions Medication Sig Dispense Refill ??? ibuprofen (ADVIL,MOTRIN) 800 MG tablet Take 800 mg by mouth every 8 hours as needed for moderatepain ??? DULoxetine (CYMBALTA) 60 MG capsule Take 60 mg by mouth 2 times daily ??? eszopiclone (LUNESTA) 2 MG tablet Take 2 mg by mouth At Bedtime ??? hydrochlorothiazide (HYDRODIURIL) 25 MG tablet Take 25 mg by mouth daily ??? sennosides (SENOKOT) 8.6 MG tablet Take 1 tablet by mouth 2 times daily ??? pregabalin (LYRICA) 150 MG capsule Take 150 mg by mouth 3 times daily ??? Calcium Carb-Cholecalciferol (CALCIUM + D3) 600-200 MG-UNIT TABS Take by mouth 2 times daily ??? [place]-3 Fatty Acids (OMEGA 3 PO) Take by mouth 2 times daily ??? Turmeric 500 MG CAPS Take by mouth 2 times daily ??? Coenzyme Q10 (COQ10) 200 MG CAPS Take by mouth daily ??? Ginkgo Biloba 40 MG TABS Take 120 mg by mouth daily ??? Multiple Vitamins-Minerals (WOMENS DAILY FORMULA PO) Take by mouth 2 times daily Two tablets twice daily ??? IRON PO Take 65 mg by mouth 2 times daily ??? amoxicillin (AMOXIL) 500 MG capsule Take 500 mg by mouth as needed (prior to dental work) ??? Valerian 500 MG CAPS Take 500 mg by mouth as needed ??? hydrocortisone (ANUCORT-HC) [address] 25 mg rectally as needed for hemorrhoids ??? diclofenac (VOLTAREN) 1 % GEL Place onto the skin as needed for moderate pain ??? triamcinolone (KENALOG) 0.5 % cream Apply topically as needed for irritation ALLERGIES Allergies Allergen Reactions ??? Food Diarrhea Red Beets PAST MEDICAL HISTORY: Past Medical History Diagnosis Date ??? Bilateral pulmonary embolism (HCC) 2009 2009 ??? Obesity ??? GERD (gastroesophageal reflux disease) ??? IBS (irritable bowel syndrome) ??? CARLOS (obstructive sleep apnea) CPAP ??? Rosacea ??? Depression ??? Fibromyalgia ??? Hypertension ??? Chronic pain syndrome ??? Chronic insomnia ??? Restless leg syndrome ??? Diabetes mellitus, type II (HCC) ??? Diastolic dysfunction PAST SURGICAL HISTORY: Past Surgical History Procedure Laterality Date ??? Arthroscopy knee bilateral Bilateral 2004 ??? C total knee arthroplasty Left 04/2009 ??? C total knee arthroplasty Right 12/2011 ??? Hysterectomy 07/2005 with D&C ??? Laminect/discectomy, lumbar 2006 L3-4 ? ? Tonsillectomy & adenoidectomy in childhood FAMILY HISTORY: No family history on file. SOCIAL HISTORY: History Social History ??? Marital Status: Spouse Name: N/A Number of Children: N/A ??? Years of Education: N/A Social History Main Topics ??? Smoking status: Former Smoker ??? Smokeless tobacco: Not on file Comment: quit 1986 ??? Alcohol Use: Not on file ??? Drug Use: No ??? Sexual Activity: Not on file Other Topics Concern ??? Caffeine Concern No green tea ??? Sleep Concern Yes sleep issues - under control ??? Special Diet Yes little red meats , lots of veggies, reduced sugar ??? Exercise Yes swimming 3 days per week Social History Narrative Review of Systems: Skin: Positive for hair changes;rash Eyes: Positive for glasses ENT: Positive for nasal congestion;postnasal drainage;sinus trouble;tinnitus Respiratory: Positive for shortness of breath;cough;dyspnea on exertion;CPAP;sleep apnea Cardiovascular: Positive for;chest pain;palpitations;edema;fatigue Gastroenterology: Positive for constipation Genitourinary: Positive for hesitancy Musculoskeletal: Positive for foot pain;nocturnal cramping;back pain;joint pain;joint stiffness;arthritis Neurologic: Positive for numbness or tingling of feet;memory problems Psychiatric: Positive for excessive stress;sleep disturbances;anxiety Heme/Lymph/Imm: Positive for allergies Endocrine: Positive for thyroid disorder Physical Exam: Vitals: BP 124/74 mmHg Pulse 66 Ht 1.753 m (5' 9) Wt 119.75 kg (264 lb) BMI 38.97 kg/m2 Constitutional: cooperative, alert and oriented, well developed, well nourished, in no acute distress overweight Skin: warm and dry to the touch, no apparent skin lesions or masses noted Head: normocephalic, no masses or lesions Eyes: pupils equal and round, conjunctivae and lids unremarkable, sclera white, no xanthalasma, EOMSintact, no nystagmus ENT: no pallor or cyanosis Neck: carotid pulses are full and equal bilaterally;JVP normal;no carotid bruit Chest: normal breath sounds, clear to auscultation, normal A-P diameter, normal symmetry, normal respiratory excursion, no use of accessory muscles Cardiac: regular rhythm, normal S1/S2, no S3 or S4, apical impulse not displaced, no murmurs, gallops or rubs Abdomen: abdomen soft;BS normoactive Vascular: Extremities and Back: no deformities, clubbing, cyanosis, erythema observed;no edema Neurological: no gross motor deficits;affect appropriate, oriented to time, person and place ASSESSMENT AND PLAN: See dictation ORDERS AT TODAY'S VISIT: Orders Placed This Encounter Procedures ??? EKG 12-lead complete w/read - Clinics CC No referring provider defined for this encounter. HET SETTER documented in this encounter Plan of Treatment Not on filedocumented as of this encounter Procedures Procedure Name Priority Date/Time Associated Diagnosis Comme nts EKG 12-LEAD COMPLETE Routine 02/06/2015 Diastolic dysfunctio n Results for this W/READ - CLINICS procedure a re in the results section . documented in this encounter Results EKG 12-lead complete w/read - Clinics (02/06/2015) Narrative This result has an attachment that is no t available. Jhonny Frey MD ECG ORDERABLES documented in this encounter Visit Diagnoses Diagnosis Diastolic dysfunction Heart disease, unspecified Palpitations documented in this encounter Care Teams Adjustment Examiner Relationship Specialty Start Date End Date Denise Harris PCP - General Internal Medicine 01/17/15 [facility] [address] [place] [address] documented as of this encounter
--- OUTSIDE RECORDS SUMMARY | 2022-01-12 12:47 | XMS_ITS | Encounter Summary ---
:1955 Author Organization [facility] Address [address] [place] [address] Care Team Providers Name Role Phone Denise Harris Primary Care Provider Encounter Details Date Type Department Care Team Description 04/08/2018 Travel Social History Tobacco Use Types Packs/Day Years [...] on filedocumented in this encounter Care Teams Account Management Specialist Relationship Specialty Start Date End Date Denise Harris PCP - General Internal Medicine 01/17/15 [facility] [address] [place] [address] documented as of this encounter
--- OUTSIDE RECORDS SUMMARY | 2022-01-12 12:47 | XMS_ITS | Encounter Summary ---
:1955 Author Organization [facility] Address [address] [place] [address] Care Team Providers Name Role Phone Denise Harris Primary Care Provider Reason for Visit Reason Onset Date Comments Previsit 02/01/[address] jah waters on 02/06/15 Encounter Details Date Type Department Care Team Description 02/01/2015 PRE VISIT [facility] Cj Frey (ov with dr [facility] MD timothy Carballo on [place] [facility] 02/06/15) [address] [facility] [address] [place] [address] [place], [place] [phone] (Wo rk) Social History Tobacco Use Types Packs/Day Years Used Date Smoking Tobacco: Never Assessed Sex Assigned at Date Recorded Female 10/30/2020 4:00 PM CDT documented as of this encounter Miscellaneous Notes Telephone Encounter - Ramonita Padilla RN - 02/03/2015 2:49 PM CST Received PMD records and echo. Sent to scan. INFORMATION ASSOCIATE Telephone Encounter - Saray Tran - 02/02/2015 8:08 AM CST PCP recs received- sent to chart prep INFORMATION ASSOCIATE Telephone Encounter - Saray Tran - 02/01/2015 3:16 PM CST PCP recs requested INFORMATION ASSOCIATE documented in this encounter Plan of Treatment Not on filedocumented as of this encounter Visit Diagnoses Not on filedocumented in this encounter Care Teams Embossograph Operator Relationship Specialty Start Date End Date Denise Harris PCP - General Internal Medicine 01/17/[address] [address] documented as of this encounter
--- OUTSIDE RECORDS SUMMARY | 2022-01-12 12:47 | XMS_ITS | Encounter Summary ---
:1955 Author Organization [facility] Address [address] [place] [id number] Care Team Providers Name Role Phone Denise Harris Primary Care Provider Reason for Referral Specialty Diagnoses / Procedures Referred By Contact Refer red To Contact Jeanine Resendiz DPM, Podiatry/Foot and An kle Surgery [address] [place] [address] Referral ID Status Reason Start Date Expiration Date Visits Requ ested Visits Authorized TICING DERMATOLOGIST Reason for Visit Reason Comments Ingrown Toenail Pain Ingrown Toenail Pain Encounter Details Date Type Department Care Team Description 04/08/2018 Office Visit [facility] Jeanine Resendiz, Foot pa in, bilateral (Primary Dx); Clinic Luis BONILLA, Podiatry/Foot Ingrown nail of great toe of left foot; [address] E and Ankle Surgery Ingrown nail of second toe of left foot; [place] [address] Sukhi dixon of both feet; [phone] [address] Plantar fasciitis, bilateral; [place], [place] Achilles tend onitis, bilateral [id number] (Wo rk) Social History Tobacco Use Types Packs/Day Years Used Date Smoking Tobacco: Former Smokeless Tobacco: Never Tobacco Cessation: Counseling Given: Yes Comments: quit 1986 Alcohol Use Standard Drinks/Week Comments Not Asked 0 (1 standard drink = 0.6 oz pure alcoho l) Sex Assigned at Date Recorded Female 10/30/2020 4:00 PM CDT documented as of this encounter Last Filed Vital Signs Vital Sign Reading Time Taken Comments Blood Pressure 120/62 04/08/2018 9:37 AM PRACTICING DERMATOLOGIST Pulse - - Temperature - - Respiratory Rate - - Oxygen Saturation - - Inhaled Oxygen Concentration - - Weight 106.8 kg (235 lb 6.4 oz) 04/08/2018 9:37 AM PRACTICING DERMATOLOGIST Height 176 cm (5' 9.29) 04/08/2018 9:37 AM PRACTICING DERMATOLOGIST Body Mass Index 34.47 04/08/2018 9:37 AM PRACTICING DERMATOLOGIST documented in this encounter Patient Instructions Patient InstructionsMimagiJonathan fields - 04/08/2018 9:30 AM CST Thank you for choosing [facility] / [facility]! DR. RESENDIZ'S CLINIC SCHEDULE FRIDAY AM - [place] FRIDAY - [place] [address] [facility] [address] [address] [address] [place] [address] / FX [phone] / FX [phone] FRIDAY - [place] FRIDAY AM - WOUND [facility] [address] [address] [place] [address] [address] [address] / FX [phone] FRIDAY PM - [place] SCHEDULE SURGERY: [phone] [facility] [address] BILLING QUESTIONS: [phone] J[place] [address] [address] AFTER HOURS: [phone] / FX [id number] APPOINTMENTS: [phone] [employer] (C[employer]) [phone] DIABETES AND YOUR FEET Diabetes can result in several problems in the feet including ulcers (open sores) and amputations. Two of the most important reasons why people develop foot problems when they have diabetes is : 1. Neuropathy (loss of feeling) 2. Vascular disease (loss or decrease of blood flow). Neuropathy is a term used to describe a loss of nerve function. Patients with diabetes are at risk of developing neuropathy if their sugars continue to run high and are above the normal value. One theory for neuropathy is that the extra sugar in the body enters the nerves and is broken down. These by- products build up in the nerve causing it to swell and impairing nerve function. Often times, this can be prevented by controlling your sugars, dieting and exercise. When a person develops neuropathy, they usually begin to feel numbness or tingling in their feet andsometime in their legs. Other symptoms may include painful burning or hot feet, tingling or feeling like insects or ants are crawling on your feet or legs. If the diabetes is sever and the sugars run high for long periods of time, neuropathy can also occur in the hands. Vascular disease is a term used to describe a loss or decrease in circulation (blood flow). There melly problem in getting blood and oxygen to areas that need it. Similar to neuropathy, sugars can buildup in the donald of the arteries (blood vessels) and cause them to become swollen, thickened and hardened. This decreases the amount of blood that can go to an area that needs it. Though this is common in the legs of diabetic patients, it can also affect other arteries (blood vessels) in the body such as in the heart and eyes. In the legs, vascular disease usually results in cramping. Patients who develop leg cramps after walking the same distance every time (i.e. One block, half a mile, ect.) need to let their doctors know so that their circulation may be checked. Cramps causing severe pain in the feet and/or legs while sleeping and the cramps go away when you stand or hang your legs off the side of the bed, may also be asign of poor blood circulation. Occasional cramping in cold weather or on rare occasions with activity may not be due to poor circulation, but you should inform your doctor. PREVENTION OF THESE DISEASES The posadas to prevention is good blood sugar control. Poor blood sugar control is a big reason many of these problems start. Physical activity (exercise) is a very good way to help decrease your blood sugars. Exercise can lower your blood sugar, blood pressure, and cholesterol. It also reduces your risk for heart disease and stroke, relieves stress, and strengthens your heart, muscles and bones. In addition, regular activity helps insulin work better, improves your blood circulation, and keeps your joints flexible. If you're trying to lose weight, a combination of exercise and meléndez food choices can help you reach your target weight and maintain it. PAIN MANAGEMENT 1.Blood Sugar Control - Most important 2. Medications such as: Amytriptylline, duloxetine, gabapentin, lyrica, tramadol 3. Nutritional therapy: Vitamin B6 (100mg daily), Vitamin B12 (75mcg daily), Vitamin D 2000 IU daily), Alpha-Lipoic Acid (600-1800mg daily), Qidypa-T-Lpabxvays (500-1000mg TID, L-methyl folate (1500mcgdaily) Metformin can block Vitamin B6 and B12 so it is important to supplement FOOT CARE RECOMMENDATIONS 1. Wash your feet with lukewarm water and a mild soap and then dry them thoroughly, especially between the toes. 2. Examine your feet daily looking for cuts, corns, blisters, cracks, ect, especially after wearingnew shoes. Make sure to look between your toes. If you cannot see the bottom of your feet, set a mirror on the floor and hold your foot over it, or ask a spouse, friend or family member to examine yourfeet for you. Contact your doctor immediately if new problems are noted or if sores are not healing. 3. Immediately apply moisturizer to the tops and bottoms of your feet, avoiding areas between the toes. Hand lotion (Intesive Care, Amirah, Eucerin, Neutrogena, Curel, ect) is sufficient unless your doctor prescribes a medicated lotion. Apply sunscreen to your feet when going swimming outside. 4. Use clean comfortable shoes, wear white socks (if you have any bleeding or drainage, you will see it on white socks). Socks should not have thick seams or cut off the circulation around the leg. Break in new shoes slowly and rotate with older shoes until broken in. Check the inside of your shoes with your hand to look for areas of irritation or objects that may have fallen into your shoes. 5. Keep slippers by the side of your bed for use during the night. 6. Shoes should be fitted by a professional and should not cause areas of irritation. Check your feet regularly when wearing a new pair of shoes and replace them as needed. 7. Talk to your doctor about proper exercise. Exercise and stretching stimulate blood flow to your feet and maintain proper glucose levels. 8. Monitor your blood glucose level as instructed by your doctor. Notify your doctor immediately ifyour blood sugar is abnormally high or low. 9. Cut your nails straight across, but then gently round any sharp edges with a cardboard nail file.If you have neuropathy, peripheral vascular disease or cannot see that well to trim your own toenails contact [facility] ([phone]) or [facility] ([phone]). THINGS TO AVOID DOING 1. Do not soak your feet if you have an open sore. Use only lukewarm water and always check the temperature with your hand as hot water can easily burn your feet. 2. Never use a hot water bottle or heating pad on your feet. Also do not apply cold compresses to your feet. With decreased sensation, you could burn or freeze your feet. 3. Do not apply any of these to your feet: - Over the counter medicine for corns or warts - Harsh chemicals like boric acid - Do not self-treat corns, cuts, blisters or infections. Always consult your doctor. 4. Do not wear sandals, slippers or walk barefoot, especially on hot sand or concrete or other harsh surfaces. 5. If you smoke, stop!!! INGROWN TOENAILS When a toenail is ingrown, it is curved and grows into the skin, usually at the nail borders (the sides of the nail). This ???digging in?? of the nail irritates the skin, often creating pain, redness,swelling, and warmth in the toe. If an ingrown nail causes a break in the skin, bacteria may enter and cause an infection in the area, which is often marked by drainage and a foul odor. However, even if the toe isn???t painful, red, swollen, or warm, a nail that curves downward into the skin can progress to an infection. CAUSES: Heredity: In many people, the tendency for ingrown toenails is inherited. Trauma: Sometimes an ingrown toenail is the result of trauma, such as stubbing your toe, having an object fall on your toe, or engaging in activities that involve repeated pressure on the toes, such askicking or running. Improper Trimming: The most common cause of ingrown toenails is cutting your nails too short. This encourages the skin next to the nail to fold over the nail. Improperly Sized Footwear: Ingrown toenails can result from wearing socks and shoes that are tight or short. Nail Conditions: Ingrown toenails can be caused by nail problems, such as fungal infections or losing a nail due to trauma. TREATMENT: Sometimes initial treatment for ingrown toenails can be safely performed at home. However, home treatment is strongly discouraged if an infection is suspected, or for those who have medical conditions that put feet at high risk, such as diabetes, nerve damage in the foot, or poor circulation. Home care: If you don???t have an infection or any of the above medical conditions, you can soak your foot in room-temperature water (adding Epsom???s salt may be recommended by your doctor), and gently massage the side of the nail fold to help reduce the inflammation. Avoid attempting ???bathroom surgery.?? Repeated cutting of the nail can cause the condition to worsen over time. If your symptoms fail to improve, it???s time to see a foot and ankle surgeon. Physician care: After examining the toe, the foot and ankle surgeon will select the treatment best suited for you. If an infection is present, an oral antibiotic may be prescribed. Sometimes a minor surgical procedure, often performed in the office, will ease the pain and remove the offending nail. After applying a local anesthetic, the doctor removes part of the nail???s side border. Some nails may become ingrown again, requiring removal of the nail root. Following the nail procedure, a light bandage will be applied. Most people experience very little pain after surgery and may resume normal activity the next day. If your surgeon has prescribed an oral antibiotic, be sure to take all the medication, even if your symptoms have improved. PREVENTION: Proper Trimming: Cut toenails in a fairly straight line, and don???t cut them too short. You should be able to get your fingernail under the sides and end of the nail. Well-fitting Footwear: Don???t wear shoes that are short or tight in the toe area. Avoid shoes that are loose, because they too cause pressure on the toes, especially when running or walking briskly. INGROWN TOENAIL REMOVAL AFTERCARE ?? Go directly home and elevate the affected foot on one or two pillows for the remainder of the day/evening if possible. Your toe may stay numb anywhere from 2-8 hours. ?? Take Tylenol, ibuprofen or another anti-inflammatory as needed for pain. ?? Take antibiotic if that has been prescribed. Finish the entire prescribed antibiotic even if yoursymptoms have improved. ?? The evening of the procedure, soak/wash the affected area in warm water (you may add Epsom salt) for 5 to 10 minutes. Do this twice a day for 2-4 weeks (6-8 weeks if you had phenol) (you may count showering/bathing as one soak). After soaks, pat the area dry and then allow to airdry for a few minutes. Apply antibiotic ointment to the area and cover with 2 X 2 gauze and paper tape or band-aid. ?? You may pursue everyday activities as tolerated with either an open toe shoe or cut-out shoe as needed or you may wear regular shoes if no pain is noted. ?? Watch for any signs and symptoms of infection such as: redness, red streaks going up the foot/leg, swelling, pus or foul odor. Those that have had the phenol procedure, the toe will drain longer andwill look like it is infected because it is a chemical burn. ?? Please call with questions. FOOT CARE NURSES If you are interested in having a foot care nurse come out to your home, please call one of these contacts for more information: [facility] Rika Lew [phone] (Travels to your home) [facility] [phone] (Travels to your home) Abhilash Weathers DPM [address] [place] [address] [facility] [phone] (Travels to your home) [facility] [address] [place] [address] [facility] [phone] [facility] Kailyn Duvall, [place] [address] [place] [address] [facility] [phone] [facility] [phone] [facility] (does not take BCBS) [facility] [phone] Body Mass Index (BMI) Many things can cause foot and ankle problems. Foot structure, activity level, foot mechanics and injuries are common causes of pain. One very important issue that often goes unmentioned, is body weight. Extra weight can cause increased stress on muscles, ligaments, bones and tendons. Sometimes just a few extra pounds is all it takesto put one over her/his threshold. Without reducing that stress, it can be difficult to alleviate pain. Some people are uncomfortable addressing this issue, but we feel it is important for you to thinkabout it. As Foot & Ankle specialists, our job is addressing the lower extremity problem and possible causes. Regarding extra body weight, we encourage patients to discuss diet and weight management plans with their primary care doctors. It is this team approach that gives you the best opportunityfor pain relief and getting you back on your feet. TICING DERMATOLOGIST documented in this encounter Progress Notes Jeanine Resendiz DPM, Podiatry/Foot and Ankle Surgery - 04/08/2018 9:30 AM PRACTICING DERMATOLOGIST PATIENT HISTORY: Yaz Multani is a 62 year old female who presents to clinic for pain to both feet. Would like orthotics assessed due to plantar fasciitis and achilles tendonitis. Wants to establish routine nail care. Would also like ingrown toenails taken care of for left 1st and 2nd toes. They are very sore. Pain is 5/10. She is diabetic and notes she used to have care done by Dr. Brown in [place]. Review of Systems: Patient denies fever, chills, rash, wound, stiffness, limping, heart burn, blood in stool, chest pain with activity, calf pain when walking, shortness of breath with activity, chronic cough, easy bleeding/bruising, swelling of ankles, excessive thirst, fatigue, depression, anxiety. Patient admits to numbness, weakness. PAST MEDICAL HISTORY: Past Medical History: Diagnosis Date ??? Bilateral pulmonary embolism (H) 2009 2009 ??? Chronic insomnia ??? Chronic pain syndrome ??? Depression ??? Diabetes mellitus, type II (H) ??? Diastolic dysfunction ??? Fibromyalgia ??? GERD (gastroesophageal reflux disease) ??? Hypertension ??? IBS (irritable bowel syndrome) ??? Obesity ??? CARLOS (obstructive sleep apnea) CPAP ??? Restless leg syndrome ??? Rosacea PAST SURGICAL HISTORY: Past Surgical History: Procedure Laterality Date ??? ARTHROSCOPY KNEE BILATERAL Bilateral 2004 ??? C TOTAL KNEE ARTHROPLASTY Left 04/2009 ??? C TOTAL KNEE ARTHROPLASTY Right 12/2011 ??? HYSTERECTOMY 07/2005 with D&C ??? LAMINECT/DISCECTOMY, LUMBAR 2006 L3-4 ? ? TONSILLECTOMY & ADENOIDECTOMY in childhood MEDICATIONS: Current Outpatient Medications: ??? amoxicillin (AMOXIL) 500 MG capsule, Take 500 mg by mouth as needed (prior to dental work), Disp: , Rfl: ??? Calcium Carb-Cholecalciferol (CALCIUM + D3) 600-200 MG-UNIT TABS, Take by mouth 2 times daily, Disp: , Rfl: ??? Coenzyme Q10 (COQ10) 200 MG CAPS, Take by mouth daily, Disp: , Rfl: ??? diclofenac (VOLTAREN) 1 % GEL, Place onto the skin as needed for moderate pain, Disp: , Rfl: ??? DULoxetine (CYMBALTA) 60 MG capsule, Take 60 mg by mouth 2 times daily, Disp: , Rfl: ??? eszopiclone (LUNESTA) 2 MG tablet, Take 2 mg by mouth At Bedtime, Disp: , Rfl: ??? Ginkgo Biloba 40 MG TABS, Take 120 mg by mouth daily, Disp: , Rfl: ??? hydrochlorothiazide (HYDRODIURIL) 25 MG tablet, Take 25 mg by mouth daily, Disp: , Rfl: ??? hydrocortisone (ANUCORT-HC) 25 MG suppository, Place 25 mg rectally as needed for hemorrhoids, Disp: , Rfl: ??? ibuprofen (ADVIL,MOTRIN) 800 MG tablet, Take 800 mg by mouth every 8 hours as needed for moderate pain, Disp: , Rfl: ??? IRON PO, Take 65 mg by mouth 2 times daily, Disp: , Rfl: ??? Multiple Vitamins-Minerals (WOMENS DAILY FORMULA PO), Take by mouth 2 times daily Two tablets twice daily, Disp: , Rfl: ??? [place]-3 Fatty Acids (OMEGA 3 PO), Take by mouth 2 times daily, Disp: , Rfl: ??? pregabalin (LYRICA) 150 MG capsule, Take 150 mg by mouth 3 times daily, Disp: , Rfl: ??? sennosides (SENOKOT) 8.6 MG tablet, Take 1 tablet by mouth 2 times daily, Disp: , Rfl: ??? triamcinolone (KENALOG) 0.5 % cream, Apply topically as needed for irritation, Disp: , Rfl: ??? Turmeric 500 MG CAPS, Take by mouth 2 times daily, Disp: , Rfl: ??? Valerian 500 MG CAPS, Take 500 mg by mouth as needed, Disp: , Rfl: ALLERGIES: Allergies Allergen Reactions ??? Food Diarrhea Red Beets SOCIAL HISTORY: Social History Socioeconomic History ??? Marital status: Spouse name: Not on file ??? Number of children: Not on file ??? Years of education: Not on file ??? Highest education level: Not on file Social Needs ??? Financial resource strain: Not on file ??? Food insecurity - worry: Not on file ??? Food insecurity - inability: Not on file ??? Transportation needs - medical: Not on file ??? Transportation needs - non-medical: Not on file Occupational History ??? Not on file Tobacco Use ??? Smoking status: Former Smoker ??? Smokeless tobacco: Never Used ??? Tobacco comment: quit 1987 Substance and Sexual Activity ??? Alcohol use: Not on file ??? Drug use: No ??? Sexual activity: Not on file Other Topics Concern ??? Service Not Asked ??? Blood Transfusions Not Asked ??? Caffeine Concern No Comment: green tea ??? Occupational Exposure Not Asked ??? Hobby Hazards Not Asked ??? Sleep Concern Yes Comment: sleep issues - under control ??? Stress Concern Not Asked ??? Weight Concern Not Asked ??? Special Diet Yes Comment: little red meats , lots of veggies, reduced sugar ??? Back Care Not Asked ??? Exercise Yes Comment: swimming 3 days per week ??? Bike Helmet Not Asked ??? Seat Belt Not Asked ??? Self-Exams Not Asked Social History Narrative ??? Not on file FAMILY HISTORY: No family history on file. EXAM:Vitals: BP 120/62 Ht 1.76 m (5' 9.29) Wt 106.8 kg (235 lb 6.4 oz) BMI 34.47 kg/m?? BMI= Body mass index is 34.47 kg/m??. A1C: patient states between 6.5 -7 General appearance: Patient is alert and fully cooperative with history & exam. No sign of distress is noted during the visit. Psychiatric: Affect is pleasant & appropriate. Patient appears motivated to improve health. Respiratory: Breathing is regular & unlabored while sitting. HEENT: Hearing is intact to spoken word. Speech is clear. No gross evidence of visual impairment that would impact ambulation. Dermatologic: lateral border of left great toenail and medial border of left 2nd toenail incurvated and red. Pain on palpation. Vascular: DP & PT pulses are intact & regular bilaterally. edema and varicosities noted. CFTand skin temperature is normal to both lower extremities. Neurologic: Lower extremity sensation is diminished to both feet. Musculoskeletal: Patient is ambulatory with wheeled walker. Decrease arch height. Pain on palpation of the plantar heels. Decrease dorsiflexion both ankles. ASSESSMENT: Foot pain, bilateral Ingrown nail of great toe of left foot Ingrown nail of second toe of left foot Pes planus of both feet Plantar fasciitis, bilateral Achilles tendonitis, bilateral PLAN: Reviewed patient's chart in [facility]. The potential causes and nature of plantar fasciitis were discussed with the patient. We reviewed the natural history/prognosis of the condition and risks if left untreated. These include chronic pain, other sites of pain due to gait changes, and potential plantar fascial rupture. We discussed possible causes of the condition as it relates to the patients specific situation. Conservative treatment options were reviewed: appropriate shoes, avoidance of barefoot walking, inserts/orthoses, stretching, ice, massage, immobilization and NSAIDs. We also reviewed the options of injection therapy and surgery. However, it was made clear that surgery is only considered when conservative therapy fails. The risks and benefits of injection therapy, and surgery were discussed. Reviewed and discussed causes of tendonitis. We discussed treatments such as immobiliation, icing, stretching, heel lifts, orthotics, physical therapy, MRI. Was given order for new orthotics or modifications to orthotics. The potential causes and nature of an ingrown toenail were discussed with the patient. We reviewed the natural history/prognosis of the condition and potential risks if no treatment is provided. Treatment options discussed included conservative management (oral antibiotics, soaking of foot, adequate width shoes) as well as surgical management (partial or total nail removal). The pros and cons of both forms of treatment were reviewed. After thorough discussion and answering all questions, the patient elected to have the borders removed. Will soak feet 2 x a day for 2 weeks and apply silvadene cream to them and bandage. Was given keflex prophyactically. Procedure: After verbal consent, the left big toe was anesthetized with 5cc's of 1% lidocaine plain. A tourniquet was applied to the toe. The latera border was then raised from the nail bed and then cut the length of the nail. The offending nail border was then removed. Bacitracin was applied to the nail bed. The tourniquet was removed. Bandage was applied to the toe. The patient tolerated the procedure and anesthesia well. Procedure 2: same procedure done to medial border of left 2nd toenail. Jeanine Resendiz DPM, Podiatry/Foot and Ankle Surgery Weight management plan: Patient was referred to their PCP to discuss a diet and exercise plan. CST documented in this encounter Plan of Treatment Scheduled Referrals Name Type Priority Associated Diagnoses Order S chedule ORTHOTICS REFERRAL Referral Routine Foot pain, bi lateral Ordered: 04/08/2018 Ingrown nail of great toe of left foot Ingrown nail of second toe of left foot Pes planus of liudmila th feet Plantar fasciiti s, bilateral Achilles tendonitis, bilateral documented as of this encounter Procedures Procedure Name Priority Date/Time Associated Diagnosis Comme nts HC REMOVAL OF NAIL Routine 04/08/2018 10:00 AM Foot pain , bilateral PLATE SIMPLE SINGLE PRACTICING DERMATOLOGIST Ingrown nail of great toe of left foot Ingrown nail of second toe of left foot Pes planus of liudmila th feet Plantar fasciitis, bilateral Achilles tendonitis, bilateral HC REMOVAL OF NAIL Routine 04/08/2018 10:00 AM Foot pain , bilateral PLATE SIMPLE SINGLE PRACTICING DERMATOLOGIST Ingrown nail of great toe of left foot Ingrown nail of second toe of left foot Pes planus of liudmila th feet Plantar fasciitis, bilateral Achilles tendonitis, bilateral documented in this encounter Visit Diagnoses Diagnosis Foot pain, bilateral - Primary Ingrown nail of great toe of left foot Ingrown nail of second toe of left foot Pes planus of both feet Plantar fasciitis, bilateral Plantar fascial fibromatosis Achilles tendonitis, bilateral documented in this encounter Care Teams Airline Dispatcher Relationship Specialty Start Date End Date Denise Harris PCP - General Internal Medicine 01/17/15 [facility] [address] [place] [address] documented as of this encounter
--- OUTSIDE RECORDS SUMMARY | 2022-01-12 12:47 | XMS_ITS | Encounter Summary ---
:1955 Author Organization [facility] Address [address] [address] Care Team Providers Name Role Phone Denise Harris MD Primary Care Provider Encounter Details Date Type Department Care Team Description 04/03/1999 Therapy [facility] herAnna Cabrera [address] [place] [address] Social History Tobacco Use Types Packs/Day Years Used Date Smoking Tobacco: Never Assessed Sex Assigned at Date Recorded Not on file documented as of this encounter Plan of Treatment Not on filedocumented as of this encounter Visit Diagnoses Not on filedocumented in this encounter Care Teams Auto Glass Technician Relationship Specialty Start Date End Date Denise Harris MD PCP - General 06/17/10 10/05/[address] [place] [address] documented as of this encounter
--- OUTSIDE RECORDS SUMMARY | 2022-01-12 12:47 | XMS_ITS | Encounter Summary ---
:1955 Author Organization [facility] Address [address] [place] [address] Care Team Providers Name Role Phone Denise Harris Primary Care Provider Anoop Emery Unavailable Inez Peck MD Unavailable Encounter Details Date Type Department Care Team Description 09/15/2020 Travel Social History Tobacco Use Types Packs/Day Years Used Date Smoking Tobacco: Former Smokeless Tobacco: Never Comments: quit 1986 Alcohol Use Standard Drinks/Week Comments Not Asked 0 (1 standard drink = 0.6 oz pure alcoho l) Sex Assigned at Date Recorded Female 10/30/2020 4:00 PM CDT COVID-19 Exposure Response Date Recorded In the last month, have you been in contact Unable to assess 09/15/2020 10:46 AM CDT with someone who was confirmed or suspected to have Coronavirus / COVID-19? documented as of this encounter Plan of Treatment Not on filedocumented as of this encounter Visit Diagnoses Not on filedocumented in this encounter Care Teams Crocodile Farmer Relationship Specialty Start Date End Date Denise Harris PCP - General Internal Medicine 01/17/15 [facility] [address] [place] [address] Anoop Emery Referring Physician Family Medicine 09/15/20 [facility] [address] [place] [address] Inez Peck MD MD Urology 09/15/[address] [place] [address] [address] [place], [place] [id number] documented as of this encounter
--- OUTSIDE RECORDS SUMMARY | 2022-01-12 12:47 | XMS_ITS | Clinical Summary ---
:1955 Author Organization [facility] [place] [address] Care Team Providers Name Role Phone Anoop Emery MD Primary Care Provider Allergies Active Allergy Reactions Severity Noted Date Comments Mupirocin *Unknown Unknown 09/10/2018 Medications Medication Sig Dispensed Refills Start End Status Date Date MULTIVITAMIN TAB take 1 tablet by 0 12/31/19 Active oral route once 07 daily with food blood glucose control, U UTD 0 03/12/20 Active normal (CONTOUR NEXT 17 LEV 2 CONTROL JONNY) soln CONTOUR NEXT TEST 2 times daily. 2 09/16/19 Active STRIPS strip 18 venlafaxine (EFFEXOR) Take 1 tablet by 90 tablet 3 10/22/19 Active 75 mg mouth every 19 tabletIndications: morning. Major depressive disorder, recurrent, moderate (HC) venlafaxine (EFFEXOR Take 1 capsule 90 capsule 3 10/22/19 Active XR) 150 mg by mouth once 19 Extended-Release daily with a capsuleIndications: meal. Major depressive disorder, recurrent, moderate (HC) hydroCHLOROthiazide Take 1 tablet by 90 tablet 0 04/08/19 Active (HCTZ) 25 mg mouth once 20 tabletIndications: daily. Chronic diastolic CHF (congestive heart failure) (HC) glipiZIDE Take 5 mg by 0 05/16/19 Active extended-release mouth. 22 (GLUCOTROL XL) 5 mg Extended-Release tablet Xarelto 10 mg tablet Take 10 mg by 0 07/05/19 Active mouth. 22 pregabalin (LYRICA) Take 1 Capsule 20 Capsule 0 12/29/19 Active 150 mg (150 mg) by 22 capsuleIndications: mouth two times Fibromyalgia daily. acetaminophen (TYLENOL Take 2 Tablets 0 12/29/19 Active EXTRA STRGTH) 500 mg (1,000 mg) by 22 tabletIndications: mouth four times Pain daily. Max acetaminophen dose: 4000mg in 24 hrs. alpha lipoic acid 600 Take 1 Capsule 0 12/29/19 Active mg capsule (600 mg) by 22 mouth once daily. coenzyme q10 (Co Q-10) Take 1 Capsule 0 12/29/19 Active 100 mg cap (100 mg) by 22 mouth once daily. Cranberry 400 mg Take 1 Capsule 0 12/29/19 Active capsule (400 mg) by 22 mouth once daily. diazePAM (VALIUM) 5 mg Take 1 Tablet (5 0 12/29/19 Active tabletIndications: RLS mg) by mouth 3 22 (restless legs times daily if syndrome) needed. fluticasone (50 mcg Inhale 1 [place] 0 12/29/19 Active per actuation) nasal to both nostrils 22 solution two times daily. (FLONASE)Indications: Seasonal allergies Ginkgo Biloba 120 mg Take 1 Tablet 0 12/29/19 Active tablet (120 mg) by 22 mouth once daily. insulin aspart, U-100, Inject 8 units 0 12/29/19 Active (NOVOLOG FLEXPEN) 100 subcutaneous 22 unit/mL (3 mL) three times penIndications: Type 2 daily before diabetes mellitus meals. without complication, with long-term current use of insulin (HC) insulin glargine, Inject 22 units 0 12/30/19 Active U-100, (Lantus subcutaneous 22 Solostar U-100 once daily. Insulin) 100 unit/mL Product desired: (3 mL) penIndications: LANTUS SOLOSTAR Type 2 diabetes mellitus without complication, with long-term current use of insulin (HC) metFORMIN (GLUCOPHAGE) Take 2 Tablets 0 12/29/19 Active 500 mg (1,000 mg) by 22 tabletIndications: mouth two times Type 2 diabetes daily with mellitus without meals. complication, with long-term current use of insulin (HC) polyethylene glycoL Mix 1 scoop (17 0 12/30/19 Active (MIRALAX) 17 gram/dose g) in liquid 22 powder then take by mouth once daily. nystatin (MYCOSTATIN) Apply topically 0 12/29/19 Active ointmentIndications: to affected 22 Dermatitis area(s) 2 times daily if needed. fish,bora,flax Take 1 capsule. 0 12/29/19 Active oils-om3,6,9no1 ([place] by mouth once 22 3-6-9) 1,200 mg cap daily. pramipexole (MIRAPEX) Take 2 Tablets 0 12/29/19 Active 0.125 mg (0.25 mg) by 22 tabletIndications: RLS mouth at (restless legs bedtime. syndrome), Fibromyalgia pramipexole (MIRAPEX) Take 3 Tablets 0 12/30/19 Active 0.125 mg tablet (0.375 mg) by 22 mouth once daily. Take at 1pm iron,carbonyl-vitamin Take 1 Tablet by 0 12/29/19 Active C (VITRON C) 65 mg mouth two times 22 iron- 125 mg daily with Delayed-Release tablet meals. diclofenac topical Apply topically 0 12/29/19 Active (Voltaren) 1 % to affected 22 gelIndications: Other area(s) 4 times chronic pain daily if needed. oxyCODONE (ROXICODONE) Take 1 Tablet (5 30 Tablet 0 01/03/20 Active 5 mg immediate release mg) by mouth 22 tabletIndications: every 4 hours if Postoperative pain needed for Pain. after spinal surgery traZODone (DESYREL) Take 1 Tablet 0 12/29/19 Active 100 mg tablet (100 mg) by 22 mouth at bedtime. FISH OIL 1,000 MG CAP 0 07/24/1912/28/ Discontinued 2021 (*Med complete/R egim en complete/L evel of care change) CALCIUM ANTACID 500 MG 2 to 3 tablets 0 12/31/19/ Discontinued CHEWABLE TAB once daily 2021 (*Med complete/R egim en complete/L evel of care change) LORATA-DINE D 10 take 1 tablet by 0 02/04/2012/28/ Discontinued MG-240 MG 24 HR TAB oral route once 2021 (*Med daily complete/R egim en complete/L evel of care change) ACYCLOVIR 200 MG CAP TAKE 1 CAPSULE 30 2 06/17/1912/15 4/ Discontinued EVERY 4 HOURS 2021 (*Med WHILE AWAKE UP compl ete/Regim TOFIVE TIMES en DAILY FOR 5 DAYS com plete/Level * START AT FIRST of care change) turmeric-turmeric root Take by mouth. 0 / Discontinued extract 450-50 mg cap 2021 (*Med complete/R egim en complete/L evel of care change) Cranberry 400 mg Take by mouth. 0 10/02/1912/28/ Discontinued capsule 2021 (*Medicati on adjustment ) diclofenac 1 % topical Apply topically 100 g 1 10/22/19 1 / Discontinued (VOLTAREN) to affected 2021 (*Medic ation gelIndications: Other area(s) 4 times adjustment) chronic pain daily. pramipexole (MIRAPEX) Take 1 tablet by 270 tablet 3 10/22/1912/28/ Discontinued 0.125 mg mouth 3 times 2021 (*Medi cation tabletIndications: RLS daily. adjustment) (restless legs syndrome), Fibromyalgia pregabalin (LYRICA) Take 1 capsule 90 capsule 3 10/22/1912/15 4/ Discontinued 100 mg by mouth 2 times 2021 (*M edication capsuleIndications: daily. adjustment) Fibromyalgia medication order Oxygen Concentrator, needing 2 LPM to use with CPAP at night while on vacation 1 Each 0 10/27/1912/28/ Discontinu ed composerIndications: Please send to [facility] [address] [place] [address] 2021 (*Med Sleep apnea in adult complete/Regim en complete/L evel of care change) ibuprofen (ADVIL; Take 1 tablet by 30 tablet 0 11/18/1912/28 / Discontinued MOTRIN) 800 mg mouth 3 times 2021 ( *Med tabletIndications: daily if needed. complete/Regim Pain en complete/L evel of care change) medication order doterra vitality 0 01/05/2012/28/ Discontinued composer pack 2021 (*Med complete/R egim en complete/L evel of care change) medication order terrazyme 0 01/05/2012/28/ Dis continued composer probiotic 2 2021 (*Med daily complete/R egim en complete/L evel of care change) nystatin (MYCOSTATIN) Apply topically 15 g 1 01/08/20/ Discontinued ointmentIndications: to affected 2021 (*Medication Intertriginous area(s) 2 times adjustment) candidiasis daily. fluticasone (50 mcg INHALE 1 SPRAY 48 g 2 03/02/2012/28 / Discontinued per actuation) nasal IN EACH NOSTRIL (*Medication solution TWICE DAILY adjus tment) (FLONASE)Indications: NEEDED Seasonal allergies LASTACAFT 0.25 % drop INT 1 DROP IN OU 0 02/25/20 1 / Discontinued D 2021 (*Med complete/R egim en complete/L evel of care change) [id number] 3-35-2 TAKE 1 TABLET BY 60 Tablet 0 06/29/1912/28/ Discontinued mg tabIndications: MOUTH TWICE 2021 (*Med Type 2 diabetes DAILY comp lete/Regim mellitus with en peripheral neuropathy complete/Level (HC) of care change) metFORMIN (GLUCOPHAGE) Twice Daily With 0 06/21/1912/28/ Discontinued 500 mg tablet Meals 2021 (*Medi cation adjustment ) traZODone (DESYREL) Take 200 mg by 0 07/07/1912/28 / Discontinued 100 mg tablet mouth at 2021 (*Medi cation bedtime. adjustment ) oxyCODONE (ROXICODONE) Take 1 Tablet (5 0 12/29/1901/02/ Discontinued 5 mg immediate release mg) by mouth 2021 (Reorder tabletIndications: every 4 hours if (E-cancel not Spondylosis without needed for Pain. sent)) myelopathy or radiculopathy, lumbar region Active Problems Problem Noted Date Cervical myelopathy 12/29/2021 Overview: S/p cervical laminoplasty Scoliosis 12/29/2021 HTN (hypertension) 12/29/2021 RLS (restless legs syndrome) 12/29/2021 Type 2 diabetes mellitus with peripheral neuropathy Obesity, morbid 06/13/2021 Type 2 diabetes mellitus without complication, without long-term current 10/21/2018 use of insulin Achilles tendinitis of both lower extremities 09/16/19 19 Adjustment disorder with mixed anxiety and depressed m ood 09/26/2011 Osteoarthrosis, unspecified whether generalized or loc alized, lower leg 03/25/2007 Other specified arthropathy, hand 03/25/2007 Myalgia and myositis, unspecified 12/30/2006 Mitral valve disorders 12/30/2006 Unspecified sleep apnea 12/30/2006 Overview: does not use CPAP Esophageal reflux 12/30/2006 Unspecified constipation 12/30/2006 Alcohol abuse, in remission 12/30/2006 Overview: SOBER SINCE 1985 Major depressive disorder, recurrent, moderate 007 Encounters Date Type Specialty Care Team Description 01/07/2022 Retirement Fatmata Eid MD Tr ansitional Care Visit ( /carolyn ) 01/07/2022 Travel 01/03/2022 Orders Only Scanner <No scans attac hed> 01/03/2022 Nurse Triage Fang Oconnor RN Abnormal L ab Results (Abnormal BMP) 01/02/2022 Retirement Emi Wyatt NP Transition al Care Visit (TECHNICAL TRAINER admit ) 01/02/2022 Nurse Triage Renata Underwood RN Med ication Management 01/02/2022 Travel 01/01/2022 Nurse Triage Renata Underwood RN TCU Orders 12/28/2021 Nurse Triage Anika Beard RN Medi cation Management (Lyrica) from Last 3 Months Immunizations Name Administration Dates Next Due Hepatitis A (Adult) 07/23/2006 Influenza A (H1N1), Inactivated 02/06/2009 Influenza, High-dose Quadrivalent 12/20/2021 Inactivated Influenza, IIV3 (Age >=3 years) 12/30/2017, 12/12/2016, 12/16, 01/10/2015, 12/26/2013, 02/15/2013, 12/21/2011, 12/17/2010, 01/01/2010, 11/30/2008, 12/30/2006 Influenza, Inactivated IIV3 (Age 65+ 01/03/2021, 01/07/2019 Years) Preserv Free Pneumococcal Poly,23-Valent 07/02/2021 (Pneumovax) Pneumococcal conj 13-Valent (Prevnar 09/22/2019 13) Td, Preservative Free (age >= 7 07/23/2006 Years) Tdap 06/21/2014 Tetanus/Diptheria 07/23/2006 Zoster (Zostavax-ZVL, live) 05/13/2014 Family History Medical History Relation Name Comments Alcohol/Drug Brother alcoholic Cancer Father PROSTATE Diabetes Father Heart Disease Father 80'S Hypertension Father Other Father bypass Cancer-breast Maternal Aunt AGE 50'S Relation Name Status Comments Brother Father Maternal Aunt Mother Social History Tobacco Use Types Packs/Day Years Used Date Former Smoker 1 1971 - 987 Smokeless Tobacco: Never Used Tobacco Cessation: Counseling Given: Yes Alcohol Use Standard Drinks/Week Comments No 0 (1 standard drink = 0.6 oz pure alcoho l) sober x 33 years. Alcohol Habits Answer Date Recorded How often do you have a drink containing alcohol? Not asked How many drinks containing alcohol do you have on a Not aske d typical day when you are drinking? How often do you have six or more drinks on one Not asked occasion? Comment: sober x 33 years. 12/08/2018 Sex Assigned at Date Recorded Not on file COVID-19 Exposure Response Date Recorded In the last 10 days, have you been in contact with No / Unsu re 01/07/2022 4:08 AM CDT someone who was confirmed or suspected to have Coronavirus/COVID-19? Obstetrics History Para Term AB IAB SAB Ectopic Multiple Living Live Births 0 Last Filed Vital Signs Vital Sign Reading Time Taken Comments Blood Pressure 146/75 09/05/2021 2:54 PM CDT Pulse 87 09/05/2021 2:54 PM CDT Temperature 36.8 ??C (98.3 ??F) 06/13/2021 4:56 PM CDT Respiratory Rate 18 12/08/2018 3:14 PM CDT Oxygen Saturation 93% 09/05/2021 2:54 PM CDT Inhaled Oxygen Concentration - - Weight 125.2 kg (276 lb 1.6 oz) 09/05/2021 2:54 PM CDT Height 175.3 cm (5' 9) 06/13/2021 4:56 PM CDT Body Mass Index 40.77 06/13/2021 4:56 PM CDT Plan of Treatment Health Maintenance Due Date Last Done Comments Mammogram for age 45-75 1998 Zoster (shingles) series for age 0407/08/2014 05/13/2014 50+ (2 of 3) Colonoscopy through age 75 07/13/2017 07/14/2007 DEXA/DXA scan for age 65+ 2018 Medicare Wellness for age 65+ 2018 Depression screening for age 12+ 09/11/2019 09/10/2018, , 09/07/2018 BMI (ht and wt on same day) for 06/13/2022 06/13/2021, 02/15, age 18+ 02/18/2019, Additional history exists Lipids for age 45-75 12/09/2023 12/08/2018 Tetanus booster 06/21/2024 06/21/2014, 07/23/2006 Tdap Completed 06/21/2014 Hepatitis C screening for age Completed 01/07/2019 18-79 Pneumococcal series for age 65+ Completed 07/02/2021, 10/2019 COVID-19 vaccine series Completed 12/11/2021, 02/07/2021, 05/19/2020 Influenza for age 65+ Completed 12/20/2021, 01/03/2021, 01/07/2019, Additional history exists Procedures Procedure Name Priority Date/Time Associated Diagnosis Comme nts SCAN-LABORATORY 01/03/2022 12:00 AM Resul ts for this REPORT CDT procedure are i n the results section. from Last 3 Months Results SCAN-LABORATORY REPORT (01/03/2022 12:00 AM CDT) Narrative This result has an attachment that is no t available. Scanner OTHER from Last 3 Months Insurance Payer Benefit Plan / Subscriber ID Effective Dates Phone Addre ss Type Group MEDICARE PART A MEDICARE PART A [id number] 2012-Presen ATTN: CLAIMS - HB USE ONLY HB ONLY t [address] [place] [address] MEDICARE PART B MEDICARE PART B [id number] 2012-Presen ATTN: CLAIMS - HB USE ONLY HB ONLY t [address] [place] [address] MEDICARE PART B MEDICARE PART B [id number] 2012-Presen ATTN: CLAIMS - HB USE ONLY HB ONLY t [address] [place] [address] [employer] MR MR BC [place] IRA [id number] 2013-Presen [address] t [place]OG[place] [phone] [employer] [place] BL[employer] CROSS [id number] 2016-Presen [address] [address] [address] [address] [place] [id number] BL[place]OSS MR BLUE CROSS [id number] 2016-Presen [address] [address] [place] BLUE t [place], [place] ONLY [id number] Advance Directives Latest Code Status on File Code Status Date Activated Date Inactivated Comments Full Code 2005 1:25 PM 05/17/2005 7:54 PM Full Code 2005 9:32 AM 2005 1:25 PM Care Teams Campus Recruiter Relationship Specialty Start Date End Date Anoop Emery MD PCP - General Family Practice 04/09/21[address] [place] [address]
--- OUTSIDE RECORDS SUMMARY | 2022-01-12 12:47 | XMS_ITS | Encounter Summary ---
:1955 Author Organization [facility] Address [address] [place] [address] Care Team Providers Name Role Phone Denise Harris Primary Care Provider Anoop Emery Unavailable Inez Peck MD Unavailable Encounter Details Date Type Department Care Team Description 09/14/2020 Medical Correspondence [facility] Scan, CLINIC REFERRAL Health Info [facility] Non-Provider [facility] [address] [place] [phone] Social History Tobacco Use Types Packs/Day Years [...] on filedocumented in this encounter Care Teams Magnaflux Operator Relationship Specialty Start Date End Date Denise Harris PCP - General Internal Medicine 01/17/15 [facility] [address] [place] [address] Anoop Emery Referring Physician Family Medicine 09/15/20 [facility] [address] [place] [address] Inez Peck MD MD Urology 09/15/[address] [place] [id number] documented as of this encounter
--- OUTSIDE RECORDS SUMMARY | 2022-01-12 12:47 | XMS_ITS | Encounter Summary ---
:1955 Author Organization [facility] Address [address] [place] [address] Care Team Providers Name Role Phone Denise Harris Primary Care Provider Anoop Emery Unavailable Inez Peck MD Unavailable Encounter Details Date Type Department Care Team Description 11/02/2020 Travel Social History Tobacco Use Types Packs/Day Years Used Date Smoking Tobacco: Former Smokeless Tobacco: Never Comments: quit 1986 Alcohol Use Standard Drinks/Week Comments Not Asked 0 (1 standard drink = 0.6 oz pure alcoho l) Sex Assigned at Date Recorded Female 10/30/2020 4:00 PM CDT COVID-19 Exposure Response Date Recorded In the last month, have you been in contact with No / Unsure 11/02/2020 1:49 PM CDT someone who was confirmed or suspected to have Coronavirus / COVID-19? documented as of this encounter Plan of Treatment Not on filedocumented as of this encounter Visit Diagnoses Not on filedocumented in this encounter Additional Health Concerns Assessment Noted Time PHQ-9 Depression Total Score: 3 11/02/2020 2:35 PM CDT documented as of this encounter Care Teams Membership Solicitor Relationship Specialty Start Date End Date Denise Harris PCP - General Internal Medicine 01/17/15 [facility] [address] [place] [address] Anoop Emery Referring Physician Family Medicine 09/15/20 [facility] [address] [place] [address] Inez Peck MD MD Urology 09/15/[address] [place] [address] documented as of this encounter
--- OUTSIDE RECORDS SUMMARY | 2022-01-12 12:47 | XMS_ITS | Encounter Summary ---
:1955 Author Organization [place] Address [address] [place] [address] Care Team Providers Name Role Phone Denise Harris Primary Care Provider Anoop Emery Unavailable Inez Peck MD Unavailable Reason for Referral Rehab Therapy Physical Therapy (Routine) - Closed Specialty Diagnoses / Procedures Referred By Contact Refer red To Contact Diagnoses Abnormal defecation Fibromyalgia Myalgia of pelvic floor High-tone pelvic floor dysfunction Inez Peck MD [address] [facility] [address] [place], [place] [address] Referral ID Status Reason Start Date Expiration Date Visits Requ ested Visits Authorized [id number] Closed 11/02/2020 11/02/2021 1 1 Reason for Visit Reason Comments Consult Pelvic floor dysfunction 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 (Routine) - Closed Specialty Diagnoses / Procedures Referred By Contact Refer red To Contact Diagnoses Pelvic floor dysfunction in female Generic External Data Department Referral ID Status Reason Start Date Expiration Date Visits Requ ested Visits Authorized [id number] Closed 09/15/2020 09/15/2021 1 1 Encounter Details Date Type Department Care Team Description 11/02/2020 Office Visit [facility] Mable Emery [facility] [address] [place] [address] Abnormal defecation (Primary Dx); [facility] Inez Peck MD [address] [facility] [address] [place], [place] [address] Fibromyalgia; [place] Myalgia of pelvic floor; [address] [facility] High-tone pelvic floor dysfu nction 4th [place] [address] Social History Tobacco Use Types Packs/Day Years [...] / COVID-19? documented as of this encounter Last Filed Vital Signs Vital Sign Reading Time Taken Comments Blood Pressure 144/81 11/02/2020 2:35 PM CDT Pulse 86 11/02/2020 2:35 PM CDT Temperature - - Respiratory Rate - - Oxygen Saturation - - Inhaled Oxygen Concentration - - Weight 116.2 kg (256 lb 3.2 oz) 11/02/2020 2:35 PM CDT Height 175.3 cm (5' 9) 11/02/2020 2:35 PM CDT Body Mass Index 37.83 11/02/2020 2:35 PM CDT documented in this encounter Patient Instructions Patient InstructionsInez Peck MD - 11/02/2020 2:15 PM CDT Websites with free information: [employer] patient website: www.[email or web address] Total Control Program: www.[email or web address].com Pelvic floor physical therapy with internal myofascial release at [facility] Leonela Meadeerson [phone] It was a pleasure meeting with you today. Thank you for allowing me and my team the privilege of caring for you today. YOU are the reason we are here, and I truly hope we provided you with the excellent service you deserve. Please let us know if there is anything else we can do for you so that we can be sure you are leaving completely satisfied with your care experience. documented in this encounter Progress Notes Inez Peck MD - 11/02/2020 2:15 PM CDT November 02, 2020 Referring Provider: [place] [address] Primary Care Provider: Denise Harris Assessment & Plan Abnormal defecation She has had defecography in the past at [facility] that shows an non relaxing PT discussed treatment is PFPT and she is agreeable - Physical Therapy Referral; Future Fibromyalgia Discussed how this can contribute to her symptoms - Physical Therapy Referral; Future Myalgia of pelvic floor/High-tone pelvic floor dysfunction We discussed how her pelvic floor symptoms are related to the physical exam findings and her pelvic floor myofascial dysfunction. We discussed how the recommended treatment is dedicated pelvic floor therapy. We discussed how the pelvic floor physical therapy works and patient is agreeable. Referral was placed. - Physical Therapy Referral; Future Return in about 6 months (around 05/05/2021) for using a video visit. 30 minutes spent in reviewing her GI notes from [facility] and her defecography, direct patient care and coordination of care Inez Peck MD MPH (she/her/hers) [facility] HPI: Yaz Multani is a 65 year old Monegasque female who presents for evaluation of her pelvicfloor symptoms. She has a long standing history of defecatory dysfunction 09/2017 DR Alfaro [facility] 01/2018 MR proctogram with abdnormal defecation with paradoxical contraction of pubrectalis during attempted evacuation Current PT is working on visceral work. Did some pelvic floor work shop that taught her some pelvic exercises that did help for awhile until about 3-4 months go. Denies gross hematuria, vaginal bleeding, UTIs, vaginal bulge Past Medical History: Diagnosis Date ??? Bilateral pulmonary embolism (H) 2009 2009 ??? Chronic insomnia ??? Chronic pain syndrome ??? Depression ??? Diabetes mellitus, type II (H) ??? Diastolic dysfunction ??? Fibromyalgia ??? GERD (gastroesophageal reflux disease) ??? Hypertension ??? IBS (irritable bowel syndrome) ??? Obesity ??? CARLOS (obstructive sleep apnea) CPAP ??? Restless leg syndrome ??? Rosacea Past Surgical History: Procedure Laterality Date ??? ARTHROSCOPY KNEE BILATERAL Bilateral 2004 ??? C TOTAL KNEE ARTHROPLASTY Left 04/2009 ??? C TOTAL KNEE ARTHROPLASTY Right 12/2011 ??? HYSTERECTOMY 07/2005 with D&C ??? LAMINECT/DISCECTOMY, LUMBAR 2006 L3-4 ? ? TONSILLECTOMY & ADENOIDECTOMY in childhood Social History Socioeconomic History ??? Marital status: [...] Social History Narrative ??? Not on file Social Determinants of Health Financial Resource Strain: ??? Difficulty of Paying Living Expenses: Food Insecurity: ??? Worried About Running Out of Food in the Last Year: ??? Ran Out of Food in the Last Year: Transportation Needs: ??? Lack of Transportation (Medical): ??? Lack of Transportation (Non-Medical): Physical Activity: ??? Days of Exercise per Week: ??? Minutes of Exercise per Session: Stress: ??? Feeling of Stress : Social Connections: ??? Frequency of Communication with Friends and Family: ??? Frequency of Social Gatherings with Friends and Family: ??? Attends Confucianist Services: ??? Active Member of Clubs or Organizations: ??? Attends Club or Organization Meetings: ??? Marital Status: Intimate Partner Violence: ??? Fear of Current or Ex-Partner: ??? Emotionally Abused: ??? Physically Abused: ??? Sexually Abused: No family history on file. ROS Allergies Allergen Reactions ??? Food Diarrhea Red Beets Current Outpatient Medications Medication ??? Coenzyme Q10 (COQ10) 200 MG CAPS ??? diclofenac (VOLTAREN) 1 % GEL ??? FLOVENT HFA 110 MCG/ACT inhaler ??? Ginkgo Biloba 40 MG TABS ??? hydrochlorothiazide (HYDRODIURIL) 25 MG tablet ??? loratadine (CLARITIN) 10 MG tablet ??? metFORMIN (GLUCOPHAGE) 500 MG tablet ??? Multiple Vitamins-Minerals (WOMENS DAILY FORMULA PO) ??? [place]-3 Fatty Acids (OMEGA 3 PO) ??? pramipexole (MIRAPEX) 0.125 MG tablet ??? pregabalin (LYRICA) 150 MG capsule ??? sennosides (SENOKOT) 8.6 MG tablet ??? traZODone (DESYREL) 100 MG tablet ??? Turmeric 500 MG CAPS ??? valACYclovir (VALTREX) 500 MG tablet ??? venlafaxine (EFFEXOR-XR) 150 MG 24 hr capsule ??? amoxicillin (AMOXIL) 500 MG capsule ??? DULoxetine (CYMBALTA) 60 MG capsule ??? eszopiclone (LUNESTA) 2 MG tablet ??? hydrocortisone (ANUCORT-HC) 25 MG suppository ??? IRON PO ??? silver sulfADIAZINE (SILVADENE) 1 % external cream ??? triamcinolone (KENALOG) 0.5 % cream ??? Valerian 500 MG CAPS No current facility-administered medications for this visit. BP (!) 144/81 Pulse 86 Ht 1.753 m (5' 9) Wt 116.2 kg (256 lb 3.2 oz) BMI 37.83 kg/m?? GENERAL: healthy, alert and no distress EYES: Eyes grossly normal to inspection, conjunctivae and sclerae normal HENT: normal cephalic/atraumatic. External ears, nose and mouth without ulcers or lesions. RESP: no audible wheeze, cough, or visible cyanosis. No visible retractions or increased work of breathing. Able to speak fully in complete sentences. NEURO: Cranial nerves grossly intact, mentation intact and speech normal PSYCH: mentation appears normal, affect normal/bright, judgement and insight intact, normal speech and appearance well-groomed : Normal external female genitalia. She has diffuse myofascial tenderness of the pelvic floor and high tone pelvic floor dysfunction CC Patient Care Team: Denise Harris as PCP - General (Internal Medicine) Anoop Emery as Referring Physician (Family Medicine) Inez Peck MD as MD (Urology) ANOOP EMERY documented in this encounter Nursing Notes Shira Seth, DARIAN - 11/02/2020 2:15 PM CDT Chief Complaint Patient presents with ??? Consult Pelvic floor dysfunction Blood pressure (!) 144/81, pulse 86, height 1.778 m (5' 10), weight 116.2 kg (256 lb 3.2 oz). Body mass index is 36.76 kg/m??. Patient Active Problem List Diagnosis ??? Obesity ??? GERD (gastroesophageal reflux disease) ??? IBS (irritable bowel syndrome) ??? CARLOS (obstructive sleep apnea) ??? Depression ??? Fibromyalgia ??? Hypertension ??? Chronic pain syndrome ??? Diabetes mellitus, type II (H) ??? Restless leg syndrome ??? Chronic insomnia ??? Diastolic dysfunction ??? Bilateral pulmonary embolism (H) Allergies Allergen Reactions ??? Food Diarrhea Red Beets Current Outpatient Medications Medication Sig Dispense Refill ??? Coenzyme Q10 (COQ10) 200 MG CAPS Take by mouth daily ??? diclofenac (VOLTAREN) 1 % GEL Place onto the skin as needed for moderate pain ??? FLOVENT HFA 110 MCG/ACT inhaler INHALE 1 PUFF BY MOUTH TWICE DAILY ??? Ginkgo Biloba 40 MG TABS Take 120 mg by mouth daily ??? hydrochlorothiazide (HYDRODIURIL) 25 MG tablet Take 25 mg by mouth daily ??? loratadine (CLARITIN) 10 MG tablet Take 1 tablet by mouth daily ??? metFORMIN (GLUCOPHAGE) 500 MG tablet Take 500 mg by mouth ??? Multiple Vitamins-Minerals (WOMENS DAILY FORMULA PO) Take by mouth 2 times daily Two tablets twice daily ??? [place]-3 Fatty Acids (OMEGA 3 PO) Take by mouth 2 times daily ??? pramipexole (MIRAPEX) 0.125 MG tablet Daily as needed ??? pregabalin (LYRICA) 150 MG capsule Take 150 mg by mouth 3 times daily ??? sennosides (SENOKOT) 8.6 MG tablet Take 1 tablet by mouth 2 times daily ??? traZODone (DESYREL) 100 MG tablet Bedtime ??? Turmeric 500 MG CAPS Take by mouth 2 times daily ??? valACYclovir (VALTREX) 500 MG tablet Twice A Day ??? venlafaxine (EFFEXOR-XR) 150 MG 24 hr capsule TAKE 1 CAPSULE BY MOUTH DAILY FOR A TOTAL DOSE OF 225 ??? amoxicillin (AMOXIL) 500 MG capsule Take 500 mg by mouth as needed (prior to dental work) ??? DULoxetine (CYMBALTA) 60 MG capsule Take 60 mg by mouth 2 times daily ??? eszopiclone (LUNESTA) 2 MG tablet Take 2 mg by mouth At Bedtime ??? hydrocortisone (ANUCORT-HC) [address] 25 mg rectally as needed for hemorrhoids ??? IRON PO Take 65 mg by mouth 2 times daily ??? silver sulfADIAZINE (SILVADENE) 1 % external cream Apply topically 2 times daily Apply to left toes 2x a day. 25 g 1 ??? triamcinolone (KENALOG) 0.5 % cream Apply topically as needed for irritation ??? Valerian 500 MG CAPS Take 500 mg by mouth as needed Social History Tobacco Use ??? Smoking status: Former Smoker ??? Smokeless tobacco: Never Used ??? Tobacco comment: quit 1987 Substance Use Topics ??? Alcohol use: None ??? Drug use: No Shira Seth CMA 11/02/2020 2:36 PM documented in this encounter Plan of Treatment Scheduled Referrals Name Type Priority Associated Diagnoses [facility] Referral Routine Abnormal defeca tion Expected: 11/02/2020 Referral Fibromyalgia (Approximate), Myalgia of pelvi c floor Expires: 11/02/2021 High-tone pelvic floor dysfunction documented as of this encounter Visit Diagnoses Diagnosis Abnormal defecation - Primary Fibromyalgia Mylagia and myositis, unspecified Myalgia of pelvic floor High-tone pelvic floor dysfunction Other specified disorders of female deyanira roberth organs documented in this encounter Additional Health Concerns Assessment Noted Time PHQ-9 Depression Total Score: 3 11/02/2020 2:35 PM CDT documented as of this encounter Care Teams Control Room Agent Relationship Specialty Start Date End Date Denise Harris PCP - General Internal Medicine 01/17/15 [facility] [address] [place] [address] Anoop Emery Referring Physician Family Medicine 09/15/20 [facility] [address] [place] [address] Inez Peck MD MD Urology 09/15/[address] [place] [id number] documented as of this encounter
--- OUTSIDE RECORDS SUMMARY | 2022-01-12 12:47 | XMS_ITS | Clinical Summary ---
:1955 Author Organization [place] Address [address] [place] [address] Care Team Providers Name Role Phone Margie Harrisherine Primary Care Provider Anoop Emery Unavailable Inez Peck MD Unavailable Inez Peck MD Unavailable Allergies Active Allergy Reactions Severity Noted Date Comments Food Diarrhea 02/06/2015 Red Beets Medications Medication Sig Dispensed Refills Start Date End Date Status DULoxetine (CYMBALTA) 60 Take 60 mg by 0 Active MG capsule mouth 2 times daily eszopiclone (LUNESTA) 2 Take 2 mg by 0 Active MG tablet mouth At Bedtime hydrochlorothiazide Take 25 mg by 0 Active (HYDRODIURIL) 25 MG mouth daily tablet sennosides (SENOKOT) 8.6 Take 1 tablet by 0 Active MG tablet mouth 2 times daily pregabalin (LYRICA) 150 Take 150 mg by 0 Active MG capsule mouth 3 times daily [place]-3 Fatty Acids Take by mouth 2 0 Active (OMEGA 3 PO) times daily Turmeric 500 MG CAPS Take by mouth 2 0 Active times daily Coenzyme Q10 (COQ10) 200 Take by mouth 0 Active MG CAPS daily Ginkgo Biloba 40 MG TABS Take 120 mg by 0 Active mouth daily Multiple Take by mouth 2 0 Acti ve Vitamins-Minerals (WOMENS times daily Two DAILY FORMULA PO) tablets twice daily IRON PO Take 65 mg by 0 Active mouth 2 times daily amoxicillin (AMOXIL) 500 Take 500 mg by 0 Active MG capsule mouth as needed (prior to dental work) Valerian 500 MG CAPS Take 500 mg by 0 Active mouth as needed hydrocortisone Place 25 mg 0 Act shandra (ANUCORT-HC) 25 MG rectally as suppository needed for hemorrhoids diclofenac (VOLTAREN) 1 % Place onto the 0 Active GEL skin as needed for moderate pain triamcinolone (KENALOG) Apply topically 0 Active 0.5 % cream as needed for irritation silver sulfADIAZINE Apply topically 25 g 1 04/08/2018 Active (SILVADENE) 1 % external 2 times daily creamIndications: Foot Apply to left pain, bilateral, Ingrown toes 2x a day. nail of great toe of left foot, Ingrown nail of second toe of left foot, Pes planus of both feet, Plantar fasciitis, bilateral, Achilles tendonitis, bilateral metFORMIN (GLUCOPHAGE) Take 500 mg by 0 01/22/2017 Active 500 MG tablet mouth venlafaxine (EFFEXOR-XR) TAKE 1 CAPSULE 0 08/25/2020 Active 150 MG 24 hr capsule BY MOUTH DAILY FOR A TOTAL DOSE OF 225 valACYclovir (VALTREX) Twice A Day 0 05/11/2020 Active 500 MG tablet traZODone (DESYREL) 100 Bedtime 0 09/29/2014 Active MG tablet pramipexole (MIRAPEX) Daily as needed 0 05/11/2020 Active 0.125 MG tablet loratadine (CLARITIN) 10 Take 1 tablet by 0 08/25/19 21 Active MG tablet mouth daily FLOVENT HFA 110 MCG/ACT INHALE 1 PUFF BY 0 1 Active inhaler MOUTH TWICE DAILY Active Problems Problem Noted Date Obesity GERD (gastroesophageal reflux disease) IBS (irritable bowel syndrome) CARLOS (obstructive sleep apnea) Overview: CPAP Depression Fibromyalgia Hypertension Chronic pain syndrome Diabetes mellitus, type II Restless leg syndrome Chronic insomnia Diastolic dysfunction Bilateral pulmonary embolism Overview: 2009 Social History Tobacco Use Types Packs/Day Years Used Date Smoking Tobacco: Former Smokeless Tobacco: Never Tobacco Cessation: Counseling Given: Yes Comments: quit 1986 Alcohol Use Standard Drinks/Week Comments Not Asked 0 (1 standard drink = 0.6 oz pure alcoho l) Sex Assigned at Date Recorded Female 10/30/2020 4:00 PM CDT Last Filed Vital Signs Vital [...] Mass Index 37.83 11/02/2020 2:35 PM CDT Plan of Treatment Health Maintenance Due Date Last Done Comments A1C 1955 ADVANCE CARE PLANNING 1955 ANNUAL REVIEW OF HM ORDERS [address] CT COLONOGRAPHY 1955 DEPRESSION ACTION PLAN 1953 DEXA 1953 DIABETIC FOOT EXAM 1955 EYE EXAM 1955 FIT-DNA (Cologuard) 1953 FIT 1953 FLEX SIG 1955 LIPID 1953 MAMMO SCREENING 1955 MICROALBUMIN 1955 COLONOSCOPY 05/17/1963 COLORECTAL CANCER SCREENING 05/17/1963 HEPATITIS C SCREENING 05/17/1971 LUNG CANCER SCREENING 05/17/2003 ZOSTER IMMUNIZATION (2 of 07/08/2014 05/13/2014 3) FALL RISK ASSESSMENT 2018 MEDICARE ANNUAL WELLNESS 2018 VISIT COVID-19 Vaccine (2 - 07/14/2020 05/19/2020 Booster for Marisol series) Pneumococcal Vaccine: 65+ 09/21/2020 09/22/2019 Years (2 - PPSV23 if available, else PCV20) PHQ-9 11/02/2021 11/02/2020 INFLUENZA VACCINE (#1) 2021 01/07/2019, 01/07/2019, 12/30/2017, Additional history exists BMP 01/03/2023 01/03/2022 DTAP/TDAP/TD IMMUNIZATION 06/21/2024 06/21/2014, 06/21/2014 , (3 - Td or Tdap) 07/23/2006, Additional history exists IPV IMMUNIZATION Aged Out No longer eligi ble based on patient 's age to complete this topic MENINGITIS IMMUNIZATION Aged Out No longe r eligible based on patient 's age to complete this topic Procedures Procedure Name Priority Date/Time Associated Diagnosis Comme nts TRIP CHARGE - LAB Routine 01/03/2022 10:12 Cough, unspec ified ONLY AM CDT Type 2 diabetes mellitus without complications (H ) Major depressive disorder, recurrent, in partial remission (H) Personal history of pulmonary embolism CBC WITH PLATELETS Routine 01/03/2022 10:12 Cough, unspe cified Results for this AM CDT Type 2 diabetes procedure ar e in mellitus without the results complications (H ) section. Major depressive disorder, recurrent, in partial remission (H) BASIC METABOLIC Routine 01/03/2022 10:12 Cough, unspecif ied Results for this PANEL AM CDT Type 2 diabetes procedure ar e in mellitus without the results complications (H ) section. Major depressive disorder, recurrent, in partial remission (H) from Last 3 Months Results Trip Charge - LAB ONLY (01/03/2022 10:12 AM CDT) Specimen Anatomical Collection Method Collection Time Receive d Time (Source) Location / / Volume Laterality Other TOPOGRAPHY UNKNOWN Billing only / 01/03/2022 10:12 5:44 / Unknown Unknown AM CDT PM CDT Emi Wyatt NP LAB CHARGE PERFORMABLES Performing Organization Address City/State/ZIP Code Phon e Number [facility] [address] [address] (ABNORMAL) Basic metabolic panel (01/03/2022 10:12 AM CDT) Analysis Performed At Patho logist Time Signature Sodium 140 136 - 145 01/03/2022 [facility] mmol/L 8:32 PM CDT Potassium 4.1 3.4 - 5.3 01/03/2022 [facility] mmol/L 8:32 PM CDT Chloride 100 98 - 107 01/03/2022 [facility] mmol/L 8:32 PM CDT Carbon Dioxide 24 22 - 29 01/03/2022 [facility] (CO2) mmol/L 8:32 PM CDT Anion Gap 16 (H) 7 - 15 01/03/2022 [facility] mmol/L 8:32 PM CDT Urea Nitrogen 12.1 8.0 - 23.0 01/03/2022 [facility] mg/dL 8:32 PM CDT Creatinine 0.68 0.51 - 01/03/2022 [facility] 0.95 mg/dL 8:32 PM CDT Calcium 9.8 8.8 - 10.2 01/03/2022 [facility] mg/dL 8:32 PM CDT Glucose 203 (H) 70 - 99 01/03/2022 [facility] mg/dL 8:32 PM CDT GFR Estimate >90 >60 01/03/2022 [facility] mL/min/1.7 8:32 PM CDT 3m2 Comment: Effective March 06, 2021 eGF Rcr in adults is calculated using the 2020 CKD-EPI creatinine equation which includ es age and gender (Jeni et al., NEJ, DOI: 10.1056/EOCYwu4806070) Specimen Anatomical Collection Method / Collection Time Recei fahad Time (Source) Location / Volume Laterality Blood STRUCTURE OF LEFT Venipuncture / 01/03/2022 10:12 10 5:44 UPPER LIMB / Unknown AM CDT PM CDT Unknown Emi Wyatt NP LAB - BLOOD ORDERABLES Performing Organization Address City/State/ZIP Code Phon e Number [facility] [place] [address] Lab [address] [facility] [address] Building, Room 3-580 (ABNORMAL) CBC with platelets (01/03/2022 10:12 AM CDT) [facility] gist Method Time Signature WBC Count 8.4 4.0 - 11.0 01/03/2022 [facility] 10e3/uL 6:52 PM CDT RBC Count 4.93 3.80 - 01/03/2022 [facility] 5.20 6:52 PM CDT 10e6/uL Hemoglobin 13.8 11.7 - 01/03/2022 [facility] 15.7 g/dL 6:52 PM CDT Hematocrit 44.7 35.0 - 01/03/2022 [facility] 47.0 % 6:52 PM CDT MCV 91 78 - 100 01/03/2022 [facility] fL 6:52 PM CDT MCH 28.0 26.5 - 01/03/2022 [facility] 33.0 pg 6:52 PM CDT MCHC 30.9 (L) 31.5 - 01/03/2022 [facility] 36.5 g/dL 6:52 PM CDT RDW 15.0 10.0 - 01/03/2022 [facility] 15.0 % 6:52 PM CDT Platelet Count 413 150 - 450 01/03/2022 [facility] 10e3/uL 6:52 PM CDT Specimen Anatomical Collection Method / Collection Time Recei fahad Time (Source) Location / Volume Laterality Blood STRUCTURE OF LEFT Venipuncture / 01/03/2022 10:12 12/16 5:44 UPPER LIMB / Unknown AM CDT PM CDT Unknown Emi Wyatt NP LAB - BLOOD ORDERABLES Performing Organization Address City/State/ZIP Code Phon e Number [facility] [place] [address] Lab [address] [facility] [address] Building, Room 3-580 from Last 3 Months Insurance Payer Benefit Plan / Subscriber ID Effective Phone Address T ype Group Dates BCBS BCBS [place] [id number] 2016-Prese [phone] [address] [address] PPO BLUE nt [address] [place] [address] MEDICARE MEDICARE FOR [place] [id number] 2014-Prese [phone] ATTN CLAIMS Medicare SUPPLEMENT nt 40 [address] [place] [address] (Home) [place] [address] Care Teams It Investment/Portfolio Manager Relationship Specialty Start Date End Date Denise Harris PCP - General Internal Medicine 01/17/15 [facility] [address] [place] [address] Anoop Emery Referring Physician Family Medicine 09/15/20 [facility] [address] [place] [address] Inez Peck MD Urology 09/15/20 [place] [address] [facility] [address] [place], [place] [id number] Inez Peckg, Assigned Surgical 11/12/20 MD Provider [address] [place] [address]
--- OUTSIDE RECORDS SUMMARY | 2022-01-12 12:47 | XMS_ITS | Encounter Summary ---
:1955 Author Organization [place] Address [address] [place] [address] Care Team Providers Name Role Phone Denise Harris Primary Care Provider Anoop Emery Unavailable Inez Peck MD Unavailable Reason for Referral LITHOGRAPHIC GENERAL WORKER (Routine) - Closed Specialty Diagnoses / Procedures Referred By Contact Refer red To Contact Diagnoses Pelvic floor dysfunction in female Generic External Data Department Referral ID Status Reason Start Date Expiration Date Visits Requ ested Visits Authorized [id number] Closed 09/15/2020 09/15/2021 1 1 Encounter Details Date Type Department Care Team Description 09/15/2020 Transcribe Orders GENERIC EXTERNAL Provider, Generic P elvic floor DATA DEPARTMENT External Data dysfunction in female (Primary Dx) Social History Tobacco Use Types Packs/Day Years Used Date Smoking Tobacco: Former Smokeless Tobacco: Never Comments: quit 1986 Alcohol Use Standard Drinks/Week Comments Not Asked 0 (1 standard drink = 0.6 oz pure alcoho l) Sex Assigned at Date Recorded Female 10/30/2020 4:00 PM CDT documented as of this encounter Plan of Treatment Scheduled Referrals Name Type Priority Associated Diagnoses Order S alanadule LITHOGRAPHIC GENERAL WORKER REFERRAL Referral Routine Pelvic floor dysfunction in Ordered: 09/15/2020 female documented as of this encounter Visit Diagnoses Diagnosis Pelvic floor dysfunction in female - Marleen skyler documented in this encounter Care Teams Forging Engineer Relationship Specialty Start Date End Date Denise Harris PCP - General Internal Medicine 01/17/15 [facility] [address] [place] [address] Anoop Emery Referring Physician Family Medicine 09/15/[address] [address] Inez Peck MD MD Urology 09/15/[address] [place] [address] documented as of this encounter
--- OUTSIDE RECORDS SUMMARY | 2022-01-12 12:47 | XMS_ITS | Encounter Summary ---
:1955 Author Organization [place] Address [address] [place] [address] Care Team Providers Name Role Phone Denise Harris Primary Care Provider Encounter Details Date Type Department Care Team Description 04/06/2018 Travel Social History Tobacco Use Types Packs/Day [...] on filedocumented in this encounter Care Teams Treating Plant Supervisor Relationship Specialty Start Date End Date Denise Harris PCP - General Internal Medicine 01/17/15 [facility] [address] [place] [address] documented as of this encounter
--- OUTSIDE RECORDS SUMMARY | 2022-01-12 12:47 | XMS_ITS | Encounter Summary ---
:1955 Author Organization [facility]ly [facility] Address [address], [place] [address] Care Team Providers Name Role Phone Denise Harris MD Primary Care Provider Encounter Details Date Type Department Care Team Description 11/28/1999 Therapy [facility] herAnna Cabrera [address] [place] [address] Social History Tobacco Use Types Packs/Day Years Used Date Smoking Tobacco: Never Assessed Sex Assigned at Date Recorded Not on file documented as of this encounter Plan of Treatment Not on filedocumented as of this encounter Visit Diagnoses Not on filedocumented in this encounter Care Teams Casing Flusher Relationship Specialty Start Date End Date Denise Harris MD PCP - General 06/17/10 10/05/[address] [place] [address] documented as of this encounter
--- OUTSIDE RECORDS SUMMARY | 2022-01-12 12:47 | XMS_ITS | Encounter Summary ---
:1955 Author Organization [place] Address [address] [place] [address] Care Team Providers Name Role Phone Denise Harris Primary Care Provider Encounter Details Date Type Department Care Team Description 01/17/2015 Orders Only [facility] Amna Messer [facility] (Primary Dx) [address] [facility] [address] [place] [phone] Social History Tobacco Use Types Packs/Day Years Used Date Smoking Tobacco: Never Assessed Sex Assigned at Date Recorded Female 10/30/2020 4:00 PM CDT documented as of this encounter Plan of Treatment Not on filedocumented as of this encounter Results Holter Monitor 48 hour - Adult (02/06/2015) Narrative [facility] - 02/06/[address] [facility] [address] [facility] [address] [facility] [address] 01/31/2015 Patient: ??Yaz Adames Chart: [id number] : ??1955 Age: ??59 year old Sex: ??female Procedure: ??Holter Monitor Placed: plea se see scanned document for result once interpretation is comple mando. Electrifier Operator performing hook-up: ??Nuvia Mcclellan Amna Messer MD CV CARDIAC SERVICES ORDERABL ES Performing Organization Address City/State/ZIP Code Phon e Number [facility] documented in this encounter Visit Diagnoses Diagnosis Shortness of breath - Primary Shortness of breath documented in this encounter Care Teams Technical Analyst Relationship Specialty Start Date End Date Denise Harris PCP - General Internal Medicine 01/17/15 [facility] [address] [place] [address] documented as of this encounter
--- OUTSIDE RECORDS SUMMARY | 2022-01-12 12:47 | XMS_ITS | Encounter Summary ---
:1955 Author Organization [facility] Address [address], [place] [address] Care Team Providers Name Role Phone Unavailable Primary Care Provider Unavailable Encounter Details Date Type Department Care Team Description 06/18/1999 Hospital Encounter [place] [address] [place], [place] [address] (Wo rk) Social History Tobacco Use Types Packs/Day Years Used Date Smoking Tobacco: Never Assessed Sex Assigned at Date Recorded Not on file documented as of this encounter Plan of Treatment Not on filedocumented as of this encounter Visit Diagnoses Not on filedocumented in this encounter
--- OUTSIDE RECORDS SUMMARY | 2022-01-12 12:47 | XMS_ITS | Encounter Summary ---
:1955 Author Organization [place] Address [address] [place] [address] Care Team Providers Name Role Phone Denise Harris Primary Care Provider Reason for Visit (Routine) - Closed Specialty Diagnoses / Procedures Referred By Contact Refer red To Contact Cardiology Diagnoses 01/17-sent reminder ltr to pt w/directions to [facility] for 48-hr holter monitor appt (pt was offered an earlier date, but declined) [facility] Procedures HOLTER MONITOR [address] [facility] [address] [place] [phone] Phone: Fax: Referral ID Status Reason Start Date Expiration Date Visits Requ ested Visits Authorized [id number] Closed 01/30/2015 01/30/2016 1 1 Encounter Details Date Type Department Care Team Description 01/31/2015 Hospital En[facility] [place] [address] [facility] [address] [address] [place], [place] [phone] Social History Tobacco Use Types Packs/Day Years Used Date Smoking Tobacco: Never Assessed Sex Assigned at Date Recorded Female 10/30/2020 4:00 PM CDT documented as of this encounter Medications at Time of Discharge Medication Sig Dispensed Refills Start Date End Date traZODone (DESYREL) 100 MG tablet Bedtime 0 documented as of this encounter Progress Notes Nuvia Mcclellan - 01/31/2015 3:46 PM CST Placed a 48 hour holter monitor. Verbal instructions were given and all questions were answered. RVISOR METER SHOP documented in this encounter Plan of Treatment Not on filedocumented as of this encounter Procedures Procedure Name Priority Date/Time Associated Diagnosis Comme nts HOLTER MONITOR 48 HOUR Routine 02/06/2015 Shortness of breat h Results for this - ADULT procedure are i n the results section . documented in this encounter Results Holter Monitor 48 hour - Adult (02/06/2015) Narrative [facility] - 02/06/2015 [facility] [address] [facility] [address] [facility] [address] 01/31/2015 Patient: ??Yaz Rosangela Chart: [id number] : ??1955 Age: ??59 year old Sex: ??female Procedure: ??Holter Monitor Placed: plea se see scanned document for result once interpretation is comple mando. Wage Conciliator performing hook-up: ??Nuvia Mcclellan Amna Messer MD CV CARDIAC SERVICES ORDERABL ES Performing Organization Address City/State/ZIP Code Phon e Number [facility] documented in this encounter Visit Diagnoses Diagnosis Shortness of breath documented in this encounter Care Teams Animal Care Service Worker Relationship Specialty Start Date End Date Denise Harris PCP - General Internal Medicine 01/17/15 [facility] [address] [place] [address] documented as of this encounter
[2022-01-12 12:51] LABS: Albumin* 4.6 g/dL (3.3-5.0); Chloride* 98 mmol/L (96-114); Sodium* 137 mmol/L (135-149)
[2022-01-12 12:52] LABS: Potassium* 4.3 mmol/L (3.6-5.1)
[2022-01-12 12:54] LABS: Alanine Aminotransferase* 35 U/L (4-35); Alkaline Phosphatase* 104 U/L (40-150); Aspartate Amino Transferase* 28 U/L (12-35); Bilirubin Total* 0.7 mg/dL (0.1-1.5); Blood Urea Nitrogen* 13 mg/dL (7-30); Carbon Dioxide* 25 mmol/L (20-32); Creatinine* 0.6 mg/dL (0.5-1.5); Estimated Glomerular Filt Rate 98 ml/min; Total Protein* 7.6 g/dL (6.0-8.3)
[2022-01-12 12:55] LABS: Calcium* 9.7 mg/dL (8.4-10.6); Glucose* 230 mg/dL (60-115)
[2022-01-12 12:57] LABS: C Reactive Protein* 3.2 mg/dL (0.5-1.0)
[2022-01-12 13:17] LABS: PCR FLU A Negative PCR FLU A (Negative); PCR FLU B Negative PCR FLU B (Negative); PCR RSV Negative PCR RSV (Negative)
[2022-01-12 13:22] LABS: SARS PCR* Negative SARS-CoV-2 (Negative)
[2022-01-12] MEDS: 0.9 % SODIUM CHLORIDE 1000 ml 1,000 ML 500 ML IV ×2 (13:26→16:35)
[2022-01-12] MEDS: PIPERACILLIN/TAZOBACTAM 3.375 GM in 0.9 % SODIUM CHLORIDE Mini-bag 100 ML IVPB ×2 (13:34→20:01)
--- NOTE | 2022-01-12 14:18 | ED.NURSE ---
did call daughter fatou. she was informed of needing to be hospitalized and there are no beds here. will attempt to place at another facility, possibly [facility] [place]. was assisted up to commode. was unable to void. did feel weak and some sob with exertion. face is very flushed. temp was 99.7. was allowed to take po water per ok of dr raymond. 02 has remained on since arrival. 02 at 2 l/nc. sats have been 94 or greater %.
[2022-01-12 15:37] LABS: Appearance Urine Clear (Clear); Bilirubin Urine Negative (Negative); Blood Urine Negative (Negative); Color Urine Yellow (Yellow); Glucose Urine Negative (Negative); Ketones Urine Negative (Negative); Leukocyte Esterase Urine Negative (Negative); Nitrite Urine Negative (Negative); Protein Urine Negative (Negative); Urobilinogen Urine 0.2 (0.2-1.0); pH Urine 5.5 (5.0-8.5)
[2022-01-12 15:39] LABS: RBC Urine 0-2 (0-2); Squamous Epithelial Cell Urine Few (None-Few); WBC Urine 0-2 (0-5)
[2022-01-12 16:00] LABS: Lactate* 2.2 mmol/L (0.5-1.9)
--- NOTE | 2022-01-12 16:40 | ED.NURSE ---
Report called to M/S RN.
--- NOTE | 2022-01-12 17:43 | P.IMHP_ITS ---
Hospitalist- H&P: HPI History of Present Illness Time Seen by Provider: 16:00 Date Seen: 01/12/22 Chief complaint: Possible sepsis Narrative: This is a 66-year-old female with a recent cervical spine surgery and developed fever and confusion this morning. On 12/24/2021 she underwent a posterior cervical laminectomy of C3 through 7 at [facility] for cervical myelopathy. She had no postoperative complications, according to the discharge summary. She went to [facility] for about a week afterward. There she was getting insulin for type [address]. [address] Emery on 01/09/2022 because she wanted to try getting off the insulin, but he noted that her blood sugars at [facility] were mildly elevated even while using insulin and wanted her to continue this at home. She was otherwise doing well at that visit. This morning she felt confused and had a fever. She has neck pain, but it is not clear if this is any worse than it has been after surgery. Her daughter, Asha, has been helping her out at home since surgery. Her daughter was concerned about her and called the ambulance. EMS obtained a temperature of 102? and oxygen saturations of 93%. She was given fentanyl for pain. Oxygen saturations in the emergency department have been in the 90s. She has an elevated temperature of 99.7 and his tachycardic in the 100s to 110s. She denies cough or dyspnea. Denies chest pain. Other than confusion, sleepiness, neck pain, and fever, she has no other symptoms. She denies any aspiration. She is questioning how she got a pneumonia. She notes that her medications have not changed since she saw Dr. Emery with the exception that she has not been taking either the long-acting or short-acting insulin due to cost. She notes that her insurance will not cover this. She was found to have a left lower lobe pneumonia on chest x-ray and the ER physician spoke with an orthopedic chief resident at [place] agreed that fever and sepsis for likely secondary to pneumonia and not a postop complication. Review of Systems Status of ROS: Reports: 10 or more systems reviewed and unremarkable except as noted in History and below [facility] Medical History (Updated 01/12/22 @ 19:54 by Dipika Guthrie MD) Achilles tendinitis of both lower extremities Acute lumbar radiculopathy 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 Chronic insomnia Chronic pain syndrome Constipation Depression (12/26/08) Fibromyalgia (12/26/08) Gastroesophageal reflux (12/26/08) Hypertension (04/13/09) Irritable bowel syndrome (12/26/08) Low back pain potentially associated with radiculopathy (05/12/12) Neuropathy of lower extremity Obesity (12/26/08) Obstructive sleep apnea treated with continuous positive airway pressure (CPAP) (12/26/08) Pain of left hip Pelvic floor dysfunction in female Plantar fasciitis, bilateral Pulmonary embolism (05/04/09) Pulmonary embolism Restless legs syndrome Rosacea (12/26/08) Spinal stenosis of cervical region Spinal stenosis of lumbar region Thyroid nodule Trigeminal neuralgia Trochanteric bursitis of left hip Tubular adenoma of colon Type 2 diabetes mellitus Surgical History (Updated 01/12/22 @ 20:00 by Dipika Guthrie MD) H/O dilation and curettage History of discectomy (12/26/08) History of hysteroscopy (12/26/08) History of tonsillectomy and adenoidectomy (12/26/08) History of total knee replacement (05/04/09) History of total right knee replacement Status post appendectomy Family History (Updated 01/12/22 @ 20:03 by Dipika Guthrie MD) Brother Alcohol dependence Father Prostate cancer Diabetes Coronary artery disease, Onset Age: 80 High blood pressure Aunt Breast cancer Social History (Updated 01/12/22 @ 20:00 by Dipika Guthrie MD) Narrative: Her daughter, Asha, is helping her out at home after her recent surgery and stay at [facility]. Smoked 1ppd for 15 years, quit in 1986. SOCIAL HISTORY: as of February 2013. History of alcoholism but she has been sober for 36 years. Very involved in alcoholics anonymous meetings. Basically disabled. Originally from [place]. Not very physically active given her ongoing physical issues but she has been going for short walks sporadically in the last month or so. HABITS: No tobacco alcohol or recreational drug use. Highest level of school completed/degree received: Master's degree Smoking Status: Former smoker Do you use any of these nicotine containing products: None Second hand tobacco smoke exposure: No How often do you have a drink containing alcohol: never How often do you have six or more drinks on one occasion: Never AUDIT-C Alcohol total score: 0 Non-prescribed substance use: denies use Caffeine: Yes service: No Meds Home Medications and Allergies Home Medications Medication Instructions Recorded Confirmed Type Diabetic meter 10/17/21 01/12/22 History Fish Oil 1 tab PO QDAY 10/17/21 01/12/22 History Lancets 10/17/21 01/12/22 History alpha lipoic acid 600 mg capsule 600 mg PO .Bedtime 10/17/21 01/12/22 History azelaic acid 15 % topical gel 1 applic topical BID 10/17/21 01/12/22 History dteqvad-pdvmcgffj-buzc tablet 1 tab PO .qd 10/17/21 01/12/22 History coenzyme Q10 100 mg capsule 100 mg PO DAILY 10/17/21 01/12/22 History diclofenac sodium 1 % topical gel 2 g topical QID 10/17/21 01/12/22 History ferrous fumarate-vitamin C 132 1 tab PO QDAY 10/17/21 01/12/22 History mg-250 mg tablet fluticasone propionate 110 1 inh inhalation BID 10/17/21 01/12/22 History mcg/actuation HFA aerosol inhaler ginkgo biloba 40 mg tablet 40 mg PO QDAY 10/17/21 01/12/22 History hydrochlorothiazide 25 mg tablet 25 mg PO DAILY 10/17/21 01/12/22 History loratadine 10 mg capsule 10 mg PO DAILY 10/17/21 01/12/22 History metformin 500 mg tablet 1,000 mg PO BIDWMEAL 10/17/21 01/12/22 History metronidazole 0.75 % topical gel 1 applic topical BID 10/17/21 01/12/22 History nystatin 100,000 unit/gram topical 1 applic topical .2-3X/Day 10/17/21 01/12/22 History cream pramipexole 0.125 mg tablet 0.625 mg PO DAILY 10/17/21 01/12/22 History rivaroxaban 10 mg tablet 10 mg PO DAILY 10/17/21 01/12/22 History trazodone 100 mg tablet 200 mg PO HS 10/17/21 01/12/22 History valacyclovir 500 mg tablet 500 mg PO BID PRN 10/17/21 01/12/22 History venlafaxine 75 mg capsule,extended 225 mg PO DAILY 10/17/21 01/12/22 History release 24 hr polyethylene glycol 3350 17 17 g PO DAILY PRN 01/09/22 01/12/22 History gram/dose oral powder (Miralax) Allergies Allergy/AdvReac Type Severity Reaction Status Date / Time mupirocin Allergy Unknown Verified 01/09/22 15:05 Exam Narrative: Exam Narrative: General: Appears ill. Sleepy, arousable, eyes closed most of the time even during the conversation, oriented x3. HEENT: Normocephalic atraumatic, pupils equally round and reactive to light and accommodation. Oropharynx clear. Mucous membranes are slightly dry. No cervical lymphadenopathy, thyromegaly or carotid bruits. No JVD. Cardiovascular: Tachycardic, regular. No murmurs, gallops, or rubs. Chest: No increased work of breathing. Clear to auscultation bilaterally. No crackles or wheezes. Abdomen: Bowel sounds present. Soft, nondistended, nontender. No hepatosplenomegaly or masses. Extremities: No edema, no cyanosis or clubbing. Skin: Incision at the back of the neck from laminectomy is approximated, healing, mildly red from ice pack, no induration, no drainage No jaundice, no pallor, no rashes. Const: Vital Signs, click to edit/add: Vital Signs - 24 hr 01/12/22 11:53 01/12/22 12:00 01/12/22 12:15 Temperature 99.2 F Pulse Rate Pulse Rate [Left P ulse Oximeter] Pulse Rate [Right Pulse Oximeter] 115 H 114 H Respiratory Rate 20 Blood Pressure Blood Pressure [Ri ght Arm] Blood Pressure [Ri ght Upper Arm] 139/70 110/87 Pulse Oximetry 94 97 98 Oxygen Delivery Me thod Room Air Nasal Cannula Oxygen Flow Rate 01/12/22 12:10 01/12/22 13:30 01/12/22 13:07 Temperature 99.7 F H Pulse Rate Pulse Rate [Left P ulse Oximeter] Pulse Rate [Right Pulse Oximeter] 112 H 112 H 116 H Respiratory Rate 16 22 Blood Pressure Blood Pressure [Ri ght Arm] Blood Pressure [Ri ght Upper Arm] 148/82 H 144/112 H 129/107 H Pulse Oximetry 97 96 95 Oxygen Delivery Me thod Nasal Cannula Nasal Cannula Nasal Cannula Oxygen Flow Rate 01/12/22 15:35 01/12/22 16:10 01/12/22 16:30 Temperature Pulse Rate 107 H 110 H Pulse Rate [Left P ulse Oximeter] Pulse Rate [Right Pulse Oximeter] 109 H Respiratory Rate 16 Blood Pressure Blood Pressure [Ri ght Arm] Blood Pressure [Ri ght Upper Arm] 121/59 L Pulse Oximetry 94 95 98 Oxygen Delivery Me thod Nasal Cannula Oxygen Flow Rate 01/12/22 16:32 01/12/22 17:07 Temperature 98.5 F Pulse Rate 106 H Pulse Rate [Left P ulse Oximeter] 103 H Pulse Rate [Right Pulse Oximeter] Respiratory Rate 20 Blood Pressure 112/52 L Blood Pressure [Ri ght Arm] 145/95 H Blood Pressure [Ri ght Upper Arm] Pulse Oximetry 97 95 Oxygen Delivery Me thod Nasal Cannula Oxygen Flow Rate 2 Hospitalist - H&P: Result Labs Labs: Short CBC 01/12/22 Range/Units 11:56 WBC 23.18 H (4.50-11.00) K/uL Hgb 15.4 (12.0-16.0) gm/dL Hct 48.4 (33.0-51.0) % Plt Count 422 (140-440) K/uL BMP 01/12/22 12:15 Sodium 137 Potassium 4.3 Chloride 98 Carbon Dioxide 25 BUN 13 Creatinine 0.6 Glucose 230 H Calcium 9.7 Liver Function 01/12/22 Range/Units 12:15 Total Bilirubin 0.7 (0.1-1.5) mg/dL AST 28 (12-35) U/L ALT 35 (4-35) U/L Alkaline Phosphatase 104 (40-150) U/L Albumin 4.6 (3.3-5.0) g/dL Urine 01/12/22 Range/Units 11:56 Urine Color Yellow (Yellow) Urine Appearance Clear (Clear) Urine pH 5.5 (5.0-8.5) Ur Specific [place] 1.020 (1.000-1.030) Urine Protein Negative (Negative) Urine Glucose (UA) Negative (Negative) Ordering Physician: Rachna Jacobo M.D. Date of Service: 01/12/22 Procedure(s): CT cervical spine wo con Accession Number(s): [id number] cc: Anoop Emery M.D.; Rachna Jacobo M.D.~ For Patients: As a result of the Century Cures Act, medical imaging exams and procedure reports are released immediately into your electronic medical record. You may view this report before your referring provider. If you have questions, please contact your health care provider. Indication: increased pain after C-SPINE surgery and fever Technique: Noncontrast axial CT of the cervical spine with coronal and sagittal reformats are provided. Comparison: No prior studies available for comparison at this institution. Findings: No fractures. There is reversal of normal cervical lordosis. Postoperative changes of laminectomy at C3-4 and left sided open door laminoplasties at C4, C5 and C6 levels. Diffuse swelling the paraspinal soft tissues along the incision site consistent with postop changes. The craniocervical junction is unremarkable. No prevertebral edema. Anterior osteophytic spurring at C4-5, C5-6 and C6-7. No lytic or sclerotic osseous lesions. Chronic nonunited left clavicle fracture. C1-2: No spinal canal stenosis C2-3: No bony spinal canal stenosis or neural foramina narrowing. C3-4: Laminectomy postop changes. No bony spinal canal stenosis or neural foramina narrowing. C4-5: Postoperative changes. Severe right neural foramen narrowing due to uncovertebral joint hypertrophy. No left neural foramen narrowing. No significant bony spinal canal stenosis C5-6: Postoperative changes. Disc osteophyte complex results in mild spinal canal narrowing. Uncovertebral joint hypertrophy results in severe right and moderate left bony neural foramen narrowing.. C6-7: Right paracentral disc osteophyte complex results in moderate right lateral recess stenosis. Severe right and moderate left neural foramen narrowing due to uncovertebral joint hypertrophy. C7-T1: No significant spinal canal stenosis or neural foramen narrowing. Impression: 1. Postoperative changes of laminectomy at C3-4 and left sided open door laminoplasties at C4, C5 and C6 levels. Diffuse swelling the paraspinal soft tissues along the incision site consistent with postop changes. No evidence of hardware complication. 2. No fractures. Multilevel cervical spondylosis detailed above. Please note that all CT scans at this facility use dose modulation, iterative reconstruction, and/or weight-based dosing when appropriate to reduce radiation dose to as low as reasonably achievable. Dictated by Enrico Green MD @ 01/12/2022 1:50:13 PM (Electronically Signed) Ordering Physician: Rachna Jacobo M.D. Date of Service: 01/12/22 Procedure(s): XR chest 1V Accession Number(s): [id number] cc: Anoop Emery M.D.; Rachna Jacobo M.D.~ For Patients: As a result of the Cures Act, medical imaging exams and procedure reports are released immediately into your electronic medical record. You may view this report before your referring provider. If you have questions, please contact your health care provider. INDICATION: Postoperative fever COMPARISON: June 08, 2021 TECHNIQUE: Single-view study obtained portably January 12, 2022 at 12:50 p.m. FINDINGS: TUBES AND LINES: None. HEART AND MEDIASTINUM: The heart size is normal. The mediastinal contour appears normal for patient age. LUNGS AND PLEURAL SPACES: Left lower lobe airspace process new since the prior study. This could be atelectasis, aspiration or pneumonia.The pleural spaces are unremarkable. OSSEOUS STRUCTURES: Re- demonstration of a nonacute left clavicular fracture IMPRESSION: Left lower lobe airspace process new since the prior study. This could be atelectasis, aspiration or pneumonia. Dictated by Logan Larkin MD @ 01/12/2022 1:19:51 PM (Electronically Signed) Assessment and Plan Assessment and plan (1) Sepsis: Problem comment: severe sepsis, secondary to pneumonia Status: Acute Assessment and Plan: Elevated WBC, HR, lactate, no septic shock. BCx2 and UC pending. LLL pneumonia on CXR is probable source. Neck incision does not appear infected. Got 2L IVF and zosyn/vanco in ER per sepsis protocol. Repeat lactate was about 2, for which a third L IVF was given. As I was ordering a third lactate for two hours after the second draw, the EMR stated that there was a reflex lactate already ordered, so I did not order another. There was no reflex lactate, so I have ordered another one to be drawn urgently now. Hold HCTZ and metformin for now due to severe sepsis. If she improves overnight, these can be restarted in the morning. (2) Pneumonia: Problem comment: left lower lobe Status: Acute Assessment and Plan: No coughing or wheezing. Does not appear to be related to aspiration. Treat with zosyn/vanco as above due to sepsis. (3) Postoperative fever: Status: Acute Assessment and Plan: Neck incision does not appear infected. Dr. Siddiqi reported that she spoke with [facility] Orthopedic physician who felt this was not an orthopedic postoperative complication and the fever and sepsis was more likely secondary to pneumonia. There were no beds there, so patient was admitted here. (4) Obstructive sleep apnea treated with continuous positive airway pressure (CPAP): Status: Chronic (5) Type 2 diabetes mellitus: Problem comment: Metformin, glipizide. Had been on insulin while in . Dr. Emery recommended continuing it for now, but patient could not afford it, so has not been using it. Status: Chronic Assessment and Plan: Hold metformin due to sepsis. Continue glipizide. Diabetic diet. She is hyperglycemic on admission. I will restart long-acting insulin at half the dose and give a small dose of short-acting insulin with each meal. Start insulin sliding scale as well. Plan VTE prophylaxis with xarelto, SCDs and TEDs due to h/o PEs.
[2022-01-12] MEDS: ACETAMINOPHEN 500 MG TABLET 1000 MG PO (19:01)
[2022-01-12 19:46] LABS: Lactate* 2.7 mmol/L (0.5-1.9)
--- NOTE | 2022-01-12 19:48 | PC.NURSE ---
End of Shift: Patient admitted to CCU3 approx 1650. Pleasant and cooperative. Alert and oriented but unsure of exact date. Temp 98.5 upon arrival, up to 100.4 and PRN Tylenol given x1. Tele showing sinus tach. Up to BSC with 2 assist, walker and gait belt. Tolerating regular diet with no nausea. C/o pain in neck 05/24.
[2022-01-12] MEDS: OXYCODONE 5 MG TABLET PO (20:30)
[2022-01-12] MEDS: PRAMIPEXOLE 0.125 MG TABLET 0.25 MG PO (22:16)
[2022-01-12] MEDS: TRAZODONE HCL 50 MG TABLET 200 MG PO (22:16)
[2022-01-12] MEDS: PREGABALIN 75 MG CAPSULE 150 MG PO (22:16)
[2022-01-12] MEDS: FLUTICASONE 110 MCG INHALER 1 PUFF IH (22:17)
[2022-01-12] MEDS: NYSTATIN CREAM 30 GM 1 APPLIC TOPICAL (22:17)
[2022-01-13] VITALS (9 sets, daily range): BP systolic 113–141; BP diastolic 57–75; PULSE 75–107; RESP 20–26; TEMP 36.8–38.2; O2SAT 92–95
[2022-01-13] MEDS: OXYCODONE 5 MG TABLET PO ×3 (02:18→17:36)
[2022-01-13] MEDS: PIPERACILLIN/TAZOBACTAM 3.375 GM in 0.9 % SODIUM CHLORIDE Mini-bag 100 ML IVPB ×4 (02:18→20:45)
[2022-01-13] MEDS: ACETAMINOPHEN 500 MG TABLET 1000 MG PO ×2 (02:19→16:43)
--- NOTE | 2022-01-13 06:31 | PC.NURSE ---
Patient febrile this shift with temp max of 102. Tylenol given with relief. Oxycodone given PRN for pain in pt's neck. Patient using the bedside commode with assist of 1. Tele shows NSR with rate in the 80's. Pt states that she is feeling much better this morning.
[2022-01-13 06:57] LABS: Basophils Percent Auto 0.2 % (0.0-3.0); Hematocrit 39.9 % (33.0-51.0); Hemoglobin* 12.8 gm/dL (12.0-16.0); Immature Granulocytes Abs Auto 0.06 K/uL (0.00-0.30); Mean Corpuscular HGB Conc 32 gm/dL (32-36); Mean Corpuscular Hemoglobin 29 pg (26-34); Mean Corpuscular Volume 89 fL (80-100); Monocytes Percent Auto 5.6 % (0.0-11.0); Neutrophils Percent Auto 81.9 % (42.0-72.0); Platelet Count* 353 K/uL (140-440); RDW Coefficient of Variation % 15.3 % (11.5-15.5); Red Blood Count 4.49 m/uL (4.00-5.20)
[2022-01-13 07:02] LABS: Slide Review Reflex No
[2022-01-13 07:15] LABS: Chloride* 100 mmol/L (96-114); Sodium* 133 mmol/L (135-149)
[2022-01-13 07:16] LABS: Potassium* 3.5 mmol/L (3.6-5.1)
[2022-01-13 07:18] LABS: Creatinine* 0.7 mg/dL (0.5-1.5); Est. Creatinine Clearance* 56.27; Estimated Glomerular Filt Rate 94 ml/min
[2022-01-13 07:19] LABS: Blood Urea Nitrogen* 13 mg/dL (7-30); Calcium* 8.2 mg/dL (8.4-10.6); Carbon Dioxide* 25 mmol/L (20-32); Glucose* 246 mg/dL (60-115)
[2022-01-13 07:34] LABS: C Reactive Protein* 19.6 mg/dL (0.5-1.0)
--- NOTE | 2022-01-13 08:35 | RESP.RT ---
Patient sitting up in bed, appears comfortable having breakfast. On room air, SaO2 93%, respiratory rate 20/minute, breathing regular/easy. Bilateral breath sounds; upper lobes good air movement, slight fine inspiratory crackle noted, lower lobes fair air movement, fine inspiratory crackles noted, lower lobes slightly diminished over upper lobes. Patient has fair none productive cough, Patient states hurts a little when she does cough. Patient has home CPAP, will be brought in by Daughter.
--- NOTE | 2022-01-13 08:48 | CRLHL7_ITS ---
For Patients: As a result of the Century Cures Act, medical imaging exams and procedure reports are released immediately into your electronic medical record. You may view this report before your referring provider. If you have questions, please contact your health care provider. Indication: Fever. Technique: CT PE Comparison: CT chest 08/2021. Findings: Normal caliber thoracic aorta heart size is normal no pericardial effusion. No pulmonary emboli. Basilar mild atelectasis no suspicious bony lesions are seen. Impression: No pulmonary emboli. Lungs appear clear aside from mild atelectasis. Please note that all CT scans at this facility use dose modulation, iterative reconstruction, and/or weight-based dosing when appropriate to reduce radiation dose to as low as reasonably achievable. Dictated by Miranda Guerra MD @ 01/13/2022 11:56:20 AM (Electronically Signed)
--- NOTE | 2022-01-13 08:48 | CRLHL7_ITS ---
For Patients: As a result of the Century Cures Act, medical imaging exams and procedure reports are released immediately into your electronic medical record. You may view this report before your referring provider. If you have questions, please contact your health care provider. INDICATION: Fever. Status post cervical laminectomy. TECHNIQUE: CT images acquired through the neck following intravenous contrast. COMPARISON: CT cervical spine 01/12/2022 and multiple prior exams. FINDINGS: Postsurgical changes of C3-4 laminectomy as well as C4 through C6 left laminoplasty. Multilobulated, hypoattenuating fluid collection demonstrating modest peripheral enhancement and containing few punctate foci of gas within the posterior soft tissues from C2-C7 extends superficially in proximity to the skin surface along the surgical tract. This collection measures approximately 5.3 x 8.2 x 4.7 cm (AP/CC/TR). No endplate erosion to suggest discitis or osteomyelitis. Beam hardening artifact secondary to dental amalgam limits evaluation of the oral cavity and adjacent structures. The nasopharynx, oropharynx, hypopharynx, and larynx are widely patent and without enhancing lesions. No enhancing lesions within the oral cavity or floor of mouth. The parotid and submandibular glands are unremarkable. Nodular enlargement of the right thyroid lobe measuring approximately up to 2.3 cm, similar compared to 12/22/2014. Mildly enlarged left level IIb and bilateral Va lymph nodes, nonspecific. Limited images through the brain are without intracranial mass effect. The paranasal sinuses are well aerated. The mastoid air cells are clear. Multilevel cervical spondylosis. The visualized lungs are notable for motion artifact and are without concerning opacities. Chronic nonunited left clavicle fracture. IMPRESSION: 1. Postsurgical changes of C3-4 laminectomy as well as C4 through C6 left laminoplasty. Multilobulated, hypoattenuating fluid collection within the posterior soft tissues from C2 through C7 demonstrates modest peripheral enhancement and may represent a developing seroma, though superimposed infection could be considered in an appropriate clinical setting. No evidence for discitis or osteomyelitis. 2. Mildly enlarged left level IIb and bilateral Va lymph nodes are nonspecific, though may be reactive. 3. Nodular enlargement of the right thyroid lobe is similar compared to multiple prior exams. Thyroid ultrasound could be performed for further evaluation. Please note that all CT scans at this facility use dose modulation, iterative reconstruction, and/or weight-based dosing when appropriate to reduce radiation dose to as low as reasonably achievable. Dictated by Pradip Carlton MD @ 01/13/2022 11:32:08 AM (Electronically Signed)
[2022-01-13] MEDS: VENLAFAXINE ER 75 MG CAPSULE 225 MG PO (09:22)
[2022-01-13] MEDS: FLUTICASONE 110 MCG INHALER 1 PUFF IH ×2 (09:22→20:44)
[2022-01-13] MEDS: RIVAROXABAN 10 MG TABLET PO (09:22)
[2022-01-13] MEDS: COENZYME Q10 100 MG CAPSULE PO (09:22)
[2022-01-13] MEDS: LORATADINE 10 MG TABLET PO (09:22)
[2022-01-13] MEDS: glipiZIDE XL 5 MG TAB 10 MG PO (09:22)
[2022-01-13] MEDS: NYSTATIN CREAM 30 GM 1 APPLIC TOPICAL ×2 (09:22→20:51)
[2022-01-13] MEDS: PREGABALIN 75 MG CAPSULE 150 MG PO ×3 (10:19→20:51)
--- NOTE | 2022-01-13 11:27 | P.IMPN_ITS ---
Progress Note: A&P Assessment and plan (1) Postoperative fever: Problem details: I am concerned about a wound infection in the cervical incision. No other apparent focus of infection to explain a fever. Obtain soft tissue CT of the neck. Contact surgery at [facility] Status: Acute (2) Pneumonia: Problem details: CT chest did not show any pneumonia or PE. Status: Acute (3) Obstructive sleep apnea treated with continuous positive airway pressure (CPAP): Status: Chronic (4) Type 2 diabetes mellitus: Problem details: Patient should be on insulin for now. Unclear what the outpatient plan for management of diabetes will be if patient is not going to use insulin Status: Chronic Plan Consult orthopedics at [facility] regarding concern about wound infection. Continue broad-spectrum antibiotics for postoperative fever pending further evaluation. Monitor and manage diabetes and other medical problems. Time Spent With Patient Total time spent: Total time spent today is 50 minutes, 40 minutes in coordination of care and discussing with patient other providers ongoing evaluation management of fever and wound infection. Subjective Date Seen: 01/13/22 Interval history: 66-year-old female admitted to the hospital with confusion and fever. She is 20 days postoperative cervical laminectomy at [facility]. She was discharged to a rehab facility until 5 days ago when she was discharged home. She reports no significant symptoms of illness until yesterday. She was not aware of being ill but her daughter found her confused and febrile and called 911. Patient reports no other illness or complications related to surgery. She does report her neck is hurting more now than it did a few days ago. She has a cough which she says is a chronic cough. She does not have any dyspnea or chest pain. No nausea vomiting or diarrhea. She has been able to eat and drink normally. She does have diabetes. She was started on insulin during this past 3 weeks but she has not continued insulin at home in the last 5 days. Exam Narrative: Exam Narrative: She is alert and oriented to her circumstances. She is reporting quite a bit of neck pain at this time. Head is normal. Neck with cervical incision posteriorly with moderate erythema extending 1 to 2 cm out from the incision. No drainage. She has minimal motion in her neck secondary to pain. No stridor. No mass. Respirations are clear to auscultation. Breathing is unlabored. Cardiovascular: S1, S2, regular rate and rhythm. Abdomen is soft without tenderness or mass. Extremities with 1+ edema bilaterally. Intact peripheral pulses. Const: Vital Signs, click to edit/add: Vital Signs - 24 hr 01/12/22 11:53 01/12/22 12:00 01/12/22 12:15 Temperature 99.2 F Pulse Rate Pulse Rate [Left P ulse Oximeter] Pulse Rate [Right Pulse Oximeter] 115 H 114 H Respiratory Rate 20 Blood Pressure Blood Pressure [Ri ght Arm] Blood Pressure [Ri ght Upper Arm] 139/70 110/87 Pulse Oximetry 94 97 98 Oxygen Delivery Me thod Room Air Nasal Cannula Oxygen Flow Rate 01/12/22 12:10 01/12/22 13:30 01/12/22 13:07 Temperature 99.7 F H Pulse Rate Pulse Rate [Left P ulse Oximeter] Pulse Rate [Right Pulse Oximeter] 112 H 112 H 116 H Respiratory Rate 16 22 Blood Pressure Blood Pressure [Ri ght Arm] Blood Pressure [Ri ght Upper Arm] 148/82 H 144/112 H 129/107 H Pulse Oximetry 97 96 95 Oxygen Delivery Me thod Nasal Cannula Nasal Cannula Nasal Cannula Oxygen Flow Rate 01/12/22 15:35 01/12/22 16:10 01/12/22 16:30 Temperature Pulse Rate 107 H 110 H Pulse Rate [Left P ulse Oximeter] Pulse Rate [Right Pulse Oximeter] 109 H Respiratory Rate 16 Blood Pressure Blood Pressure [Ri ght Arm] Blood Pressure [Ri ght Upper Arm] 121/59 L Pulse Oximetry 94 95 98 Oxygen Delivery Me thod Nasal Cannula Oxygen Flow Rate 01/12/22 16:32 01/12/22 17:07 01/12/22 19:01 Temperature 98.5 F 100.4 F H Pulse Rate 106 H Pulse Rate [Left P ulse Oximeter] 103 H Pulse Rate [Right Pulse Oximeter] Respiratory Rate 20 Blood Pressure 112/52 L Blood Pressure [Ri ght Arm] 145/95 H Blood Pressure [Ri ght Upper Arm] Pulse Oximetry 97 95 Oxygen Delivery Me thod Nasal Cannula Oxygen Flow Rate 2 01/12/22 19:00 01/12/22 19:39 01/12/22 19:00 Temperature 102 F H Pulse Rate 101 H Pulse Rate [Left P ulse Oximeter] 97 Pulse Rate [Right Pulse Oximeter] Respiratory Rate 20 20 Blood Pressure Blood Pressure [Ri ght Arm] 155/66 H Blood Pressure [Ri ght Upper Arm] Pulse Oximetry 92 94 Oxygen Delivery Me thod Room Air Room Air Oxygen Flow Rate 01/12/22 23:00 01/12/22 23:00 01/12/22 23:00 Temperature Pulse Rate 101 H Pulse Rate [Left P ulse Oximeter] 92 Pulse Rate [Right Pulse Oximeter] Respiratory Rate 20 Blood Pressure Blood Pressure [Ri ght Arm] Blood Pressure [Ri ght Upper Arm] Pulse Oximetry 92 Oxygen Delivery Me thod Oxygen Flow Rate 01/12/22 23:00 01/13/22 03:00 01/13/22 08:33 Temperature 99.5 F 99.6 F Pulse Rate Pulse Rate [Left P ulse Oximeter] 90 91 Pulse Rate [Right Pulse Oximeter] Respiratory Rate 20 20 Blood Pressure Blood Pressure [Ri ght Arm] 115/58 L 121/61 Blood Pressure [Ri ght Upper Arm] Pulse Oximetry 90 93 93 Oxygen Delivery Me thod Room Air Room Air Room Air Oxygen Flow Rate Documenting provider has reviewed patient's vital signs: yes Labs Labs: Laboratory Results - last 24 hr 01/12/22 01/12/22 01/12/22 11:56 11:56 12:15 WBC 23.18 H RBC 5.52 H Hgb 15.4 Hct 48.4 MCV 88 MCH 28 MCHC 32 RDW Coeff of Setven 15.0 Plt Count 422 Neut % (Auto) 90.1 H Lymph % (Auto) 5.4 L Lynn % (Auto) 3.8 Eos % (Auto) 0.2 Baso % (Auto) 0.2 Neut # (Auto) 20.90 H Lymph # (Auto) 1.30 Lynn # (Auto) 0.90 Eos # (Auto) 0.00 Baso # (Auto) 0.00 Abs Immat Gran (auto) 0.08 Diff Slide Review Acceptable Review Sodium 137 Potassium 4.3 Chloride 98 Carbon Dioxide 25 BUN 13 Creatinine 0.6 Estimated Creat Clear Estimated GFR 98 Glucose 230 H Lactate Calcium 9.7 Total Bilirubin 0.7 AST 28 ALT 35 Alkaline Phosphatase 104 C-Reactive Protein 3.2 H Total Protein 7.6 Albumin 4.6 Urine Color Yellow Urine Appearance Clear Urine pH 5.5 Ur Specific [place] 1.020 Urine Protein Negative Urine Glucose (UA) Negative Urine Ketones Negative Urine Blood Negative Urine Nitrite Negative Urine Bilirubin Negative Urine Urobilinogen 0.2 Ur Leukocyte Esterase Negative Urine RBC 0-2 Urine WBC 0-2 Ur Squamous Epith Cells Few Urine Bacteria None SARS-CoV-2 (PCR) Influenza Type A (PCR) Influenza Type B (PCR) RSV (PCR) POC Troponin I 01/12/22 01/12/22 01/12/22 12:15 12:15 12:15 WBC RBC Hgb Hct MCV MCH MCHC RDW Coeff of Steven Plt Count Neut % (Auto) Lymph % (Auto) Lynn % (Auto) Eos % (Auto) Baso % (Auto) Neut # (Auto) Lymph # (Auto) Lynn # (Auto) Eos # (Auto) Baso # (Auto) Abs Immat Gran (auto) Diff Slide Review Sodium Potassium Chloride Carbon Dioxide BUN Creatinine Estimated Creat Clear Estimated GFR Glucose Lactate 4.0 H Calcium Total Bilirubin AST ALT Alkaline Phosphatase C-Reactive Protein Total Protein Albumin Urine Color Urine Appearance Urine pH Ur Specific [place] Urine Protein Urine Glucose (UA) Urine Ketones Urine Blood Urine Nitrite Urine Bilirubin Urine Urobilinogen Ur Leukocyte Esterase Urine RBC Urine WBC Ur Squamous Epith Cells Urine Bacteria SARS-CoV-2 (PCR) Negative SARS-CoV-2 Influenza Type A (PCR) Negative PCR FLU A Influenza Type B (PCR) Negative PCR FLU B RSV (PCR) Negative PCR RSV POC Troponin I 0.01 01/12/22 01/12/22 01/13/22 15:55 19:40 06:10 WBC 20.90 H RBC 4.49 Hgb 12.8 Hct 39.9 MCV 89 MCH 29 MCHC 32 RDW Coeff of Steven 15.3 Plt Count 353 Neut % (Auto) 81.9 H Lymph % (Auto) 10.0 L Lynn % (Auto) 5.6 Eos % (Auto) 2.0 Baso % (Auto) 0.2 Neut # (Auto) 17.10 H Lymph # (Auto) 2.10 Lynn # (Auto) 1.20 H Eos # (Auto) 0.40 Baso # (Auto) 0.00 Abs Immat Gran (auto) 0.06 Diff Slide Review Sodium Potassium Chloride Carbon Dioxide BUN Creatinine Estimated Creat Clear Estimated GFR Glucose Lactate 2.2 H 2.7 H Calcium Total Bilirubin AST ALT Alkaline Phosphatase C-Reactive Protein Total Protein Albumin Urine Color Urine Appearance Urine pH Ur Specific [place] Urine Protein Urine Glucose (UA) Urine Ketones Urine Blood Urine Nitrite Urine Bilirubin Urine Urobilinogen Ur Leukocyte Esterase Urine RBC Urine WBC Ur Squamous Epith Cells Urine Bacteria SARS-CoV-2 (PCR) Influenza Type A (PCR) Influenza Type B (PCR) RSV (PCR) POC Troponin I 01/13/22 06:10 WBC RBC Hgb Hct MCV MCH MCHC RDW Coeff of Steven Plt Count Neut % (Auto) Lymph % (Auto) Lynn % (Auto) Eos % (Auto) Baso % (Auto) Neut # (Auto) Lymph # (Auto) Lynn # (Auto) Eos # (Auto) Baso # (Auto) Abs Immat Gran (auto) Diff Slide Review Sodium 133 L Potassium 3.5 L Chloride 100 Carbon Dioxide 25 BUN 13 Creatinine 0.7 Estimated Creat Clear 56.27 Estimated GFR 94 Glucose 246 H Lactate Calcium 8.2 L Total Bilirubin AST ALT Alkaline Phosphatase C-Reactive Protein 19.6 H Total Protein Albumin Urine Color Urine Appearance Urine pH Ur Specific [place] Urine Protein Urine Glucose (UA) Urine Ketones Urine Blood Urine Nitrite Urine Bilirubin Urine Urobilinogen Ur Leukocyte Esterase Urine RBC Urine WBC Ur Squamous Epith Cells Urine Bacteria SARS-CoV-2 (PCR) Influenza Type A (PCR) Influenza Type B (PCR) RSV (PCR) POC Troponin I
--- NOTE | 2022-01-13 14:07 | RESP.RT ---
Addendum entered by Marko Bain, [employer] HELPER, PROFESSIONAL APPLICATION DESIGNER 01/13/22 14:23: Oxygen Bleed in of 2 Lpm set up with patients Home CPAP Original Note: Patient Home CPAP inspected and set up at bedside. Clean Machine and functioning, water chamber filled to proper level. Patient able to place self on/off CPAP as needed. Current bilateral breath sounds with audible expiratory high pitched wheeze noted. Patient in lying in bed, appears slightly short of breath, respiratory rate 22/minute.
--- NOTE | 2022-01-13 14:54 | PC.NURSE ---
Shift note [id number]: Patient afebrile this shift with temp max of 98.6. Oxycodone given PRN for pain in pt's neck. Patient using the bedside commode with assist of 1. Tele shows NSR. Pt. states she's not feeling the greatest today. SBA to bedside commode and back to bed was the most she wanted to do.
[2022-01-13] MEDS: PRAMIPEXOLE 0.125 MG TABLET 0.375 MG PO (17:56)
[2022-01-13] MEDS: PRAMIPEXOLE 0.125 MG TABLET 0.25 MG PO (20:51)
[2022-01-13] MEDS: TRAZODONE HCL 50 MG TABLET 200 MG PO (20:51)
--- NOTE | 2022-01-13 23:40 | PC.NURSE ---
Shift- Patient's temperature is elevated this afternoon and evening- tylenol given with some reduction in temperature. MD aware- no new orders. Neck is painful and reddened around incision site. Ice applied with relief. Patient requests oxycodone once tonight. An attempt is made to get up to chair this evening, however patient is too weak and therefore is unsuccessful. She is able to use beside commode however. Update given to daughter.
[2022-01-14] MEDS: PIPERACILLIN/TAZOBACTAM 3.375 GM in 0.9 % SODIUM CHLORIDE Mini-bag 100 ML IVPB ×4 (01:44→19:28)
[2022-01-14] MEDS: 0.9 % SODIUM CHLORIDE 250 ml IV (01:51)
[2022-01-14] MEDS: SODIUM CHLORIDE 0.9 % (FLUSH) 10 ML SYRINGE 5 ML IVF ×3 (01:52→22:33)
[2022-01-14 03:00] VITALS: PULSE 78; RESP 20; TEMP 36.8; O2SAT 92
[2022-01-14] MEDS: ACETAMINOPHEN 500 MG TABLET 1000 MG PO ×2 (04:17→13:03)
[2022-01-14] MEDS: BENZOCAINE/MENTHOL 1 EACH LOZENGE MUCOUS MEM ×2 (04:32→06:50)
[2022-01-14 07:00] VITALS: BP 126/80; PULSE 79; PULSE 97; RESP 18; RESP 20; TEMP 36.6; O2SAT 91
[2022-01-14 07:24] LABS: HCO3 VBG 27 mmol/L (21-28); Lactate* 0.9 mmol/L (0.5-1.9); PCO2 VBG 42 mmHG (40-50); PO2 VBG 33.2 mmHG (25-47); pH VBG 7.423 (7.32-7.43)
[2022-01-14 07:31] LABS: Basophils Percent Auto 0.2 % (0.0-3.0); Eosinophils Percent Auto 6.6 % (0.0-7.0); Hematocrit 38.2 % (33.0-51.0); Hemoglobin* 12.3 gm/dL (12.0-16.0); Immature Granulocytes Abs Auto 0.03 K/uL (0.00-0.30); Lymphocytes Percent Auto 12.2 % (20-44); Mean Corpuscular HGB Conc 32 gm/dL (32-36); Mean Corpuscular Hemoglobin 28 pg (26-34); Mean Corpuscular Volume 88 fL (80-100); Monocytes Percent Auto 5.4 % (0.0-11.0); Neutrophils Percent Auto 75.4 % (42.0-72.0); Platelet Count* 317 K/uL (140-440); RDW Coefficient of Variation % 15.4 % (11.5-15.5); Red Blood Count 4.33 m/uL (4.00-5.20); White Blood Count* 17.82 K/uL (4.50-11.00)
--- NOTE | 2022-01-14 07:37 | PC.NURSE ---
Pt up to bedside commode with SBA. Tylenol and Ice to back of neck for pain management with relief. Denies N/V. CPAP with 2L for sleep.
[2022-01-14 07:51] LABS: Slide Review Reflex No
[2022-01-14 07:56] LABS: Chloride* 103 mmol/L (96-114); Sodium* 136 mmol/L (135-149)
[2022-01-14 07:59] LABS: Blood Urea Nitrogen* 8 mg/dL (7-30); Carbon Dioxide* 27 mmol/L (20-32); Creatinine* 0.5 mg/dL (0.5-1.5); Est. Creatinine Clearance* 56.27; Estimated Glomerular Filt Rate 102 ml/min
[2022-01-14 08:00] LABS: Calcium* 8.7 mg/dL (8.4-10.6); Glucose* 198 mg/dL (60-115)
[2022-01-14] MEDS: VENLAFAXINE ER 75 MG CAPSULE 225 MG PO (08:07)
[2022-01-14] MEDS: COENZYME Q10 100 MG CAPSULE PO (08:07)
[2022-01-14] MEDS: glipiZIDE XL 5 MG TAB 10 MG PO (08:07)
[2022-01-14] MEDS: OXYCODONE 5 MG TABLET PO ×3 (08:07→15:51)
[2022-01-14] MEDS: PREGABALIN 75 MG CAPSULE 150 MG PO ×3 (08:07→20:55)
[2022-01-14] MEDS: NYSTATIN CREAM 30 GM 1 APPLIC TOPICAL (08:08)
[2022-01-14] MEDS: LORATADINE 10 MG TABLET PO (08:09)
[2022-01-14 08:18] LABS: C Reactive Protein* 25.4 mg/dL (0.5-1.0)
[2022-01-14] MEDS: RIVAROXABAN 10 MG TABLET PO (09:00)
--- NOTE | 2022-01-14 09:19 | PM.IMPN1 ---
Progress Note: A&P Assessment and plan (1) Postoperative fever: Problem details: I am concerned about a wound infection in the cervical incision. Fever, leukocytosis, elevated CRP are nonspecific indicators of infectious process. New neck pain and erythema along the incision suggests this may be the source of fever. No other apparent focus of infection to explain a fever. Soft tissue CT shows fluid at the cervical incision. Unclear if this is a benign seroma or possible abscess. Initial recommendation from [facility] was to culture this fluid. Call back from surgery at [facility] said do not culture this fluid due to risk of introducing an infection. With delayed onset of fever and location in the neck consider Propionibacterium acnes (Cutibacterium acnes) as potential pathogen as well as MRSA Status: Acute (2) Obstructive sleep apnea treated with continuous positive airway pressure (CPAP): Status: Chronic (3) Type 2 diabetes mellitus: Problem details: Patient should be on insulin for now. Unclear what the outpatient plan for management of diabetes will be if patient is not going to use insulin Status: Chronic Plan Continue in hospital with broad-spectrum antibiotic therapy. Await culture results. Communicate with [facility] as needed for further recommendations Time Spent With Patient Total time spent: Total time spent today is 40 minutes, 30 minutes in coordination of care discussed with patient and other providers ongoing evaluation management of infection Subjective Date Seen: 01/14/22 Interval history: 66-year-old female now 3 weeks status post cervical laminectomy with onset 2 days ago of new neck pain, fever, confusion. Now on vancomycin and Zosyn. Patient reports neck pain is still significant. Fever is improving. Evaluation for other causes of fever has not identified any other new symptoms of illness or infection. CT chest showed no PE and no pneumonia. Urine unremarkable. Urine and blood cultures negative so far. Exam Narrative: Exam Narrative: She is alert and in no distress. No confusion or disorientation today. Oropharynx is normal except small airway. Inspection of the neck shows cervical incision with erythema along the entire length of it. The erythema extends out 1-2 cm from the incision. There is no drainage. Palpation shows tenderness primarily on the right side of the incision. Respirations are clear to auscultation. Good air exchange all lung bowling. Cardiovascular: S1, S2, regular rate and rhythm. Abdomen: Bowel sounds active. Abdomen is soft without tenderness or mass. Extremities without edema. She moves all 4 extremities well. No rash except the erythema around her incision. Const: Vital Signs, click to edit/add: Vital Signs - 24 hr 01/13/22 11:00 01/13/22 14:03 01/13/22 15:30 Temperature 98.6 F Pulse Rate Pulse Rate [Left P ulse Oximeter] 91 Respiratory Rate 20 Blood Pressure [Ri ght Arm] 133/65 Pulse Oximetry 92 95 Oxygen Delivery Me thod Room Air Room Air Oxygen Flow Rate 01/13/22 15:30 01/13/22 16:57 01/13/22 17:35 Temperature 100.4 F H 100.7 F H Pulse Rate 104 H Pulse Rate [Left P ulse Oximeter] 107 H 99 Respiratory Rate 26 H Blood Pressure [Ri ght Arm] 113/57 L 140/68 H Pulse Oximetry 95 Oxygen Delivery Me thod Room Air Oxygen Flow Rate 01/13/22 19:05 01/13/22 23:00 01/13/22 23:00 Temperature 100.1 F H 98.2 F Pulse Rate Pulse Rate [Left P ulse Oximeter] 101 H 75 Respiratory Rate 24 22 Blood Pressure [Ri ght Arm] 132/59 L 141/59 H Pulse Oximetry 92 92 92 Oxygen Delivery Me thod Room Air CPAP Oxygen Flow Rate 2 01/13/22 23:00 01/14/22 03:00 01/14/22 07:00 Temperature 98.3 F Pulse Rate 77 Pulse Rate [Left P ulse Oximeter] 78 Respiratory Rate 20 Blood Pressure [Ri ght Arm] Pulse Oximetry 92 91 Oxygen Delivery Me thod CPAP Oxygen Flow Rate 2 01/14/22 07:00 Temperature 97.8 F Pulse Rate Pulse Rate [Left P ulse Oximeter] 79 Respiratory Rate 20 Blood Pressure [Ri ght Arm] 126/80 Pulse Oximetry 91 Oxygen Delivery Me thod CPAP Oxygen Flow Rate 0 Documenting provider has reviewed patient's vital signs: yes Labs Labs: Laboratory Results - last 24 hr 01/14/22 01/14/22 01/14/22 07:18 07:18 07:18 WBC 17.82 H RBC 4.33 Hgb 12.3 Hct 38.2 MCV 88 MCH 28 MCHC 32 RDW Coeff of Steven 15.4 Plt Count 317 Neut % (Auto) 75.4 H Lymph % (Auto) 12.2 L [place] % (Auto) 5.4 Eos % (Auto) 6.6 Baso % (Auto) 0.2 Neut # (Auto) 13.40 H Lymph # (Auto) 2.20 Peach # (Auto) 1.00 H Eos # (Auto) 1.20 H Baso # (Auto) 0.00 Abs Immat Gran (auto) 0.03 VBG pH 7.423 VBG pCO2 42 VBG pO2 33.2 VBG HCO3 27 Sodium 136 Potassium 4.0 Chloride 103 Carbon Dioxide 27 BUN 8 Creatinine 0.5 Estimated Creat Clear 56.27 Estimated GFR 102 Glucose 198 H Lactate 0.9 Calcium 8.7 C-Reactive Protein 25.4 H
[2022-01-14 11:00] VITALS: BP 136/55; PULSE 96; RESP 18; TEMP 36.9; O2SAT 91
[2022-01-14] MEDS: FLUTICASONE 110 MCG INHALER 1 PUFF IH ×2 (11:43→20:56)
[2022-01-14 15:15] VITALS: BP 138/58; PULSE 78; PULSE 83; RESP 22; TEMP 37.3; O2SAT 92
--- NOTE | 2022-01-14 15:58 | PC.NURSE ---
pain continues to be rated 6/10, pt reports pain is now going up left side of neck. Surgical incision from spinal surgery appears darkened around edges, otherwise intact. Pt 99.4 around 1430 with temporal - now 99.6. New IV placed by JANAE Gillis to left AC today d/t old IV infiltrated. Ax1 with walker and GB to BR- tolerated well. BM today. Report given to JANAE Woo.
--- NOTE | 2022-01-14 16:18 | PC.SOCIAL ---
Addendum entered by LUCIE Puri 01/17/22 10:39: Correction to previous note. Phone number for [facility] is [phone]. Original Note: Discharge planning: Received call from [facility] [phone] stating pt is currently on service with their agency and receives PT twice a week. They requested to be notified when pt is discharged with new orders for home care sent if needed to fax#[phone]. Social work to follow up as needed.
--- NOTE | 2022-01-14 16:37 | PC.NURSE ---
5mg ER Glipizide pill found in pt bed. Notified Chente in Pharmacy and Dr. Bowens. Advised not to administer. Explained plan to pt. Pt states understanding.
[2022-01-14] MEDS: INSULIN PROT/ASP (NOVOLOG 70/30) 100 UNIT/ML 15 UNIT SUBCUT (17:21)
[2022-01-14] MEDS: PRAMIPEXOLE 0.125 MG TABLET 0.375 MG PO (18:53)
[2022-01-14 19:00] VITALS: BP 148/59; PULSE 76; RESP 20; TEMP 37.4; O2SAT 95
--- NOTE | 2022-01-14 19:26 | PC.NURSE ---
15:00-19:00 Assumed care of this patient from Danilo CARDOSO. Pt rating pain 6 out of 10, radiating up the posterior neck bilaterally. Oxycodone 5 mg given to help pt achieve manageable pain level of less than or equal to 5. Visiting with friend. Ice pack to fusion scar middle of back. BG 248, please see eMar for medications given to cover this value. Up to void once and tolerated 100% of her dinner. Report to Maggie CARDOSO for lead scientist.
--- NOTE | 2022-01-14 19:39 | PC.NURSE ---
TELE indicates NSR
[2022-01-14] MEDS: PRAMIPEXOLE 0.125 MG TABLET 0.25 MG PO (20:54)
[2022-01-14] MEDS: TRAZODONE HCL 50 MG TABLET 200 MG PO (20:55)
[2022-01-14 23:00] VITALS: BP 144/68; PULSE 78; PULSE 82; RESP 20; RESP 24; TEMP 36.4; O2SAT 90
[2022-01-15] VITALS (8 sets, daily range): BP systolic 123–172; BP diastolic 54–81; PULSE 70–87; RESP 16–20; TEMP 36.3–37.4; O2SAT 91–94
[2022-01-15] MEDS: ACETAMINOPHEN 500 MG TABLET 1000 MG PO ×2 (01:25→15:46)
[2022-01-15] MEDS: PIPERACILLIN/TAZOBACTAM 3.375 GM in 0.9 % SODIUM CHLORIDE Mini-bag 100 ML IVPB ×2 (01:25→08:20)
[2022-01-15] MEDS: OXYCODONE 5 MG TABLET PO ×4 (01:25→14:54)
[2022-01-15] MEDS: 0.9 % SODIUM CHLORIDE 250 ml IV (01:26)
[2022-01-15 06:55] LABS: Basophils Percent Auto 0.5 % (0.0-3.0); Eosinophils Percent Auto 8.3 % (0.0-7.0); Hematocrit 35.9 % (33.0-51.0); Hemoglobin* 11.4 gm/dL (12.0-16.0); Immature Granulocytes Abs Auto 0.05 K/uL (0.00-0.30); Lymphocytes Percent Auto 19.1 % (20-44); Mean Corpuscular HGB Conc 32 gm/dL (32-36); Mean Corpuscular Hemoglobin 29 pg (26-34); Mean Corpuscular Volume 90 fL (80-100); Monocytes Percent Auto 7.4 % (0.0-11.0); Neutrophils Percent Auto 64.3 % (42.0-72.0); Platelet Count* 289 K/uL (140-440); RDW Coefficient of Variation % 15.4 % (11.5-15.5); White Blood Count* 12.81 K/uL (4.50-11.00)
[2022-01-15 06:56] LABS: Slide Review Reflex No
[2022-01-15 07:13] LABS: Chloride* 103 mmol/L (96-114); Sodium* 138 mmol/L (135-149)
[2022-01-15 07:16] LABS: Creatinine* 0.6 mg/dL (0.5-1.5); Est. Creatinine Clearance* 56.27; Estimated Glomerular Filt Rate 98 ml/min
[2022-01-15 07:17] LABS: Blood Urea Nitrogen* 8 mg/dL (7-30); Calcium* 8.5 mg/dL (8.4-10.6); Carbon Dioxide* 29 mmol/L (20-32); Glucose* 155 mg/dL (60-115)
[2022-01-15 07:34] LABS: C Reactive Protein* 18.1 mg/dL (0.5-1.0)
[2022-01-15] MEDS: INSULIN PROT/ASP (NOVOLOG 70/30) 100 UNIT/ML 15 UNIT SUBCUT (08:21)
[2022-01-15] MEDS: SODIUM CHLORIDE 0.9 % (FLUSH) 10 ML SYRINGE 5 ML IVF ×2 (09:21→09:59)
[2022-01-15] MEDS: NYSTATIN CREAM 30 GM 1 APPLIC TOPICAL ×2 (09:21→21:25)
[2022-01-15] MEDS: FLUTICASONE 110 MCG INHALER 1 PUFF IH ×2 (09:21→21:24)
[2022-01-15] MEDS: PREGABALIN 75 MG CAPSULE 150 MG PO ×3 (09:22→21:24)
[2022-01-15] MEDS: RIVAROXABAN 10 MG TABLET PO (09:22)
[2022-01-15] MEDS: LORATADINE 10 MG TABLET PO (09:22)
[2022-01-15] MEDS: COENZYME Q10 100 MG CAPSULE PO (09:22)
[2022-01-15] MEDS: VENLAFAXINE ER 75 MG CAPSULE 225 MG PO (09:22)
[2022-01-15] MEDS: POTASSIUM CHLORIDE 10 MEQ CAPSULE ER 20 MEQ PO (09:58)
[2022-01-15] MEDS: FUROSEMIDE 10 MG/ML inj 20 MG IVP (09:58)
--- NOTE | 2022-01-15 11:43 | P.IMPN_ITS ---
Progress Note: A&P Assessment and plan (1) Postoperative fever: Problem details: Improving. I am concerned about a wound infection in the cervical incision. Fever, leukocytosis, elevated CRP are nonspecific indicators of infectious process. New neck pain and erythema along the incision suggests this may be the source of fever. No other apparent focus of infection to explain a fever. Soft tissue CT shows fluid at the cervical incision. Unclear if this is a benign seroma or possible abscess. Initial recommendation from [facility] was to culture this fluid. Call back from surgery at [facility] said do not culture this fluid due to risk of introducing an infection. With delayed onset of fever and location in the neck consider Propionibacterium acnes (Cutibacterium acnes) as potential pathogen as well as MRSA. Will discontinue piperacillin tazobactam but continue vancomycin and monitor. Coordinate with [facility] about intermediate plan of care Status: Acute (2) Obstructive sleep apnea treated with continuous positive airway pressure (C PAP): Status: Chronic (3) Type 2 diabetes mellitus: Problem details: Patient should be on insulin for now. Unclear what the outpatient plan for management of diabetes will be if patient is not going to use insulin Status: Chronic Subjective Date Seen: 01/15/22 Interval history: 66-year-old female seen in followup of fever and neck pain 3 weeks after cervical laminectomy. She still reports neck pain today she thinks is about the same. She has not any more fever. She reports being a little wheezy today. No chest pain. Some cough. She reports her appetite is good she has had no nausea vomiting. No edema. Chest CT on admission was unremarkable. Exam Narrative: Exam Narrative: She is alert and appears in no distress. Oropharynx with Small airway inspection of the posterior neck shows the erythema around incision is about the same extent but the erythema appears to be less intense. Palpation shows some tenderness a little more on the left side of the mid incision than the right. yesterday was more on the right. No definite fluctuance. Respirations are clear to auscultation except for some upper where airway wheezing and congestion. Cardiovascular: S1, S2, regular rate and rhythm. Abdomen is soft without tenderness or mass. Extremities without significant edema. She moves all 4 extremities well. Const: Vital Signs, click to edit/add: Vital Signs - 24 hr 01/14/22 15:15 01/14/22 15:15 01/14/22 15:15 Temperature 99.2 F Pulse Rate 78 Pulse Rate [Left P ulse Oximeter] 83 Respiratory Rate 22 Blood Pressure [Ri ght Arm] 138/58 L Pulse Oximetry 92 92 Oxygen Delivery Me thod Room Air Oxygen Flow Rate 01/14/22 19:00 01/14/22 23:00 01/14/22 23:00 Temperature 99.4 F Pulse Rate Pulse Rate [Left P ulse Oximeter] 76 Respiratory Rate 20 20 Blood Pressure [Ri ght Arm] 148/59 H Pulse Oximetry 95 90 Oxygen Delivery Me thod Room Air Oxygen Flow Rate 01/14/22 23:00 01/14/22 23:00 01/15/22 04:26 Temperature 97.6 F 98.5 F Pulse Rate 78 Pulse Rate [Left P ulse Oximeter] 82 87 Respiratory Rate 24 18 Blood Pressure [Ri ght Arm] 144/68 H 133/64 Pulse Oximetry 90 92 Oxygen Delivery Me thod Room Air CPAP Oxygen Flow Rate 0 01/15/22 07:33 01/15/22 07:33 01/15/22 07:38 Temperature 97.4 F L Pulse Rate 71 Pulse Rate [Left P ulse Oximeter] 70 Respiratory Rate 16 Blood Pressure [Ri ght Arm] 123/54 L Pulse Oximetry 94 94 Oxygen Delivery Me thod Room Air Oxygen Flow Rate 01/15/22 11:34 Temperature 97.7 F Pulse Rate Pulse Rate [Left P ulse Oximeter] 86 Respiratory Rate 20 Blood Pressure [Ri ght Arm] 172/81 H Pulse Oximetry 94 Oxygen Delivery Me thod Room Air Oxygen Flow Rate Labs Labs: Laboratory Results - last 24 hr 01/15/22 01/15/22 06:40 06:40 WBC 12.81 H RBC 4.00 Hgb 11.4 L Hct 35.9 MCV 90 MCH 29 MCHC 32 RDW Coeff of Steven 15.4 Plt Count 289 Neut % (Auto) 64.3 Lymph % (Auto) 19.1 L Dickson % (Auto) 7.4 Eos % (Auto) 8.3 H Baso % (Auto) 0.5 Neut # (Auto) 8.20 H Lymph # (Auto) 2.40 Dickson # (Auto) 0.90 Eos # (Auto) 1.10 H Baso # (Auto) 0.10 Abs Immat Gran (auto) 0.05 Sodium 138 Potassium 4.0 Chloride 103 Carbon Dioxide 29 BUN 8 Creatinine 0.6 Estimated Creat Clear 56.27 Estimated GFR 98 Glucose 155 H Calcium 8.5 C-Reactive Protein 18.1 H
[2022-01-15] MEDS: INSULIN PROT/ASP (NOVOLOG 70/30) 100 UNIT/ML 20 UNIT SUBCUT (18:20)
[2022-01-15] MEDS: PRAMIPEXOLE 0.125 MG TABLET 0.375 MG PO (18:26)
[2022-01-15] MEDS: PRAMIPEXOLE 0.125 MG TABLET 0.25 MG PO (21:24)
[2022-01-15] MEDS: TRAZODONE HCL 50 MG TABLET 200 MG PO (21:24)
--- NOTE | 2022-01-15 22:56 | PC.NURSE ---
Shift [id number]- Patient complains of pain at beginning of shift- tylenol given. Patient seemed unsatisfied with her care and talked about wanting to contact her patient advocate. Through discussion, she stated that she thought we should be testing her now draining neck wound. RN consults MD- no new orders. Good friend in to visit this afternoon/evening, who has experience as ortho PA. She is present for discussion and agrees that we are treating patient appropriately. Patient again on subsequent encounter brings up same issue, further education provided by RN and her friend is in agreement. Mepilex applied to base of incision due to drainage. Patient states tonight that she hasn't felt as good as she does this evening for a while. Incision site also seems improved. She is up with walker, gait belt and A/1 to BR. Ice also applied to neck with relief.
[2022-01-16] VITALS (8 sets, daily range): BP systolic 120–142; BP diastolic 54–78; PULSE 56–73; RESP 16; TEMP 36.6–36.9; O2SAT 91–94
[2022-01-16] MEDS: BENZOCAINE/MENTHOL 1 EACH LOZENGE MUCOUS MEM (00:14)
[2022-01-16] MEDS: OXYCODONE 5 MG TABLET PO ×5 (00:46→21:12)
--- NOTE | 2022-01-16 06:33 | PC.NURSE ---
23-: pt pleasant and cooperative. Up to BR with walker. Pt c/o neck pain 6/10, 10mg oxy given with relief. Large amount of Purulent Drainage from cervical incision, Abd pad placed. Area surrounding incision is reddened. Ice applied to incision site to aid in pain relief. Oral temp 98.4F. 1.5L O2 bleeding into CPAP. Tele = NSR.
[2022-01-16 06:44] LABS: Basophils Percent Auto 0.4 % (0.0-3.0); Eosinophils Percent Auto 9.3 % (0.0-7.0); Hematocrit 37.2 % (33.0-51.0); Hemoglobin* 11.7 gm/dL (12.0-16.0); Immature Granulocytes Abs Auto 0.08 K/uL (0.00-0.30); Lymphocytes Percent Auto 20.4 % (20-44); Mean Corpuscular HGB Conc 32 gm/dL (32-36); Mean Corpuscular Hemoglobin 28 pg (26-34); Mean Corpuscular Volume 89 fL (80-100); Monocytes Percent Auto 8.2 % (0.0-11.0); Neutrophils Percent Auto 61.1 % (42.0-72.0); Platelet Count* 318 K/uL (140-440); RDW Coefficient of Variation % 15.3 % (11.5-15.5); Red Blood Count 4.17 m/uL (4.00-5.20); White Blood Count* 12.38 K/uL (4.50-11.00)
[2022-01-16 06:59] LABS: Chloride* 103 mmol/L (96-114); Potassium* 4.1 mmol/L (3.6-5.1); Sodium* 137 mmol/L (135-149)
[2022-01-16 07:02] LABS: Creatinine* 0.5 mg/dL (0.5-1.5); Est. Creatinine Clearance* 56.27; Estimated Glomerular Filt Rate 102 ml/min
[2022-01-16 07:03] LABS: Blood Urea Nitrogen* 10 mg/dL (7-30); Calcium* 8.6 mg/dL (8.4-10.6); Carbon Dioxide* 25 mmol/L (20-32); Glucose* 211 mg/dL (60-115)
[2022-01-16 07:19] LABS: Slide Review Reflex No
[2022-01-16 07:32] LABS: C Reactive Protein* 15.6 mg/dL (0.5-1.0)
[2022-01-16] MEDS: LORATADINE 10 MG TABLET PO (08:50)
[2022-01-16] MEDS: FLUTICASONE 110 MCG INHALER 1 PUFF IH ×2 (08:50→21:14)
[2022-01-16] MEDS: NYSTATIN CREAM 30 GM 1 APPLIC TOPICAL ×2 (08:50→21:13)
[2022-01-16] MEDS: RIVAROXABAN 10 MG TABLET PO (08:50)
[2022-01-16] MEDS: VENLAFAXINE ER 75 MG CAPSULE 225 MG PO (08:50)
[2022-01-16] MEDS: COENZYME Q10 100 MG CAPSULE PO (08:50)
[2022-01-16] MEDS: PREGABALIN 75 MG CAPSULE 150 MG PO ×3 (08:50→21:12)
[2022-01-16] MEDS: INSULIN PROT/ASP (NOVOLOG 70/30) 100 UNIT/ML 30 UNIT SUBCUT (08:58)
[2022-01-16] MEDS: cefTRIAXone 2 GM in 0.9 % SODIUM CHLORIDE Mini-bag 100 ML IVPB (11:55)
--- NOTE | 2022-01-16 13:59 | P.IMPN_ITS ---
Progress Note: A&P Assessment and plan (1) Postoperative fever: Problem details: Improving. Cause of the fever appears to be her wound infection. Cultures obtained today are pending. Continue vancomycin and add ceftriaxone Status: Acute (2) Surgical wound infection: Problem details: I spoke with Orthopedic surgery at [facility]. Plan will be for her to go there as an outpatient on Friday. They cannot accept her in transfer as they have no beds available. We will discharge from our hospital tomorrow. For now will be on oral antibiotics. Status: Acute (3) Obstructive sleep apnea treated with continuous positive airway pressure (CPAP): Status: Chronic (4) Type 2 diabetes mellitus: Problem details: Patient should be on insulin for now. Trial of outpatient management of diabetes with Novolin 70 30 twice daily Status: Chronic Plan Continue in hospital for another day of IV antibiotics with plan to transfer to outpatient care at [facility] on Friday. Time Spent With Patient Total time spent: Total time spent today is 45 minutes, 35 minutes in coordination of care and discussing with patient and other providers ongoing evaluation management of her wound infection and diabetes Subjective Date Seen: 01/16/22 Interval history: 66-year-old female seen in followup of fever and neck pain. She is now a little more than 3 weeks out from her cervical laminectomy. Last night the wound started draining purulence fluid. This seems to have helped a little bit with her pain. She has not had any further fever. She reports no other new concerns today. Exam Narrative: Exam Narrative: She is alert and appears in no distress. Wound is inspected. The erythema appears about the same she has a moderate amount of drainage on addressing now plateaued over her wound. Palpation still shows some tenderness along the wound edges. Breathing is unlabored. Cardiovascular: S1, S2, regular rate and rhythm. Abdomen is soft without tenderness. Const: Vital Signs, click to edit/add: Vital Signs - 24 hr 01/15/22 15:40 01/15/22 15:40 01/15/22 17:27 Temperature 99.4 F Pulse Rate 77 Pulse Rate [Left P ulse Oximeter] 85 Respiratory Rate 20 Blood Pressure [Ri ght Arm] 148/81 H Pulse Oximetry 92 92 Oxygen Delivery Me thod Room Air 01/15/22 19:05 01/15/22 23:00 01/15/22 23:00 Temperature 98.5 F Pulse Rate 72 Pulse Rate [Left P ulse Oximeter] 81 Respiratory Rate 16 Blood Pressure [Ri ght Arm] 125/58 L Pulse Oximetry 91 93 Oxygen Delivery Me thod Room Air 01/15/22 23:00 01/15/22 23:00 01/16/22 03:00 Temperature 98 F 98.4 F Pulse Rate Pulse Rate [Left P ulse Oximeter] 74 74 62 Respiratory Rate 16 16 16 Blood Pressure [Ri ght Arm] 132/64 120/56 L Pulse Oximetry 93 94 Oxygen Delivery Me thod Room Air CPAP 01/16/22 08:06 Temperature Pulse Rate 65 Pulse Rate [Left P ulse Oximeter] Respiratory Rate Blood Pressure [Ri ght Arm] Pulse Oximetry Oxygen Delivery Me thod Documenting provider has reviewed patient's vital signs: yes Labs Labs: Laboratory Results - last 24 hr 01/16/22 01/16/22 06:33 06:33 WBC 12.38 H RBC 4.17 Hgb 11.7 L Hct 37.2 MCV 89 MCH 28 MCHC 32 RDW Coeff of Steven 15.3 Plt Count 318 Neut % (Auto) 61.1 Lymph % (Auto) 20.4 [place] % (Auto) 8.2 Eos % (Auto) 9.3 H Baso % (Auto) 0.4 Neut # (Auto) 7.60 H Lymph # (Auto) 2.50 [place] # (Auto) 1.00 H Eos # (Auto) 1.20 H Baso # (Auto) 0.00 Abs Immat Gran (auto) 0.08 Sodium 137 Potassium 4.1 Chloride 103 Carbon Dioxide 25 BUN 10 Creatinine 0.5 Estimated Creat Clear 56.27 Estimated GFR 102 Glucose 211 H Calcium 8.6 C-Reactive Protein 15.6 H
[2022-01-16] MEDS: PRAMIPEXOLE 0.125 MG TABLET 0.375 MG PO (18:26)
[2022-01-16] MEDS: INSULIN PROT/ASP (NOVOLOG 70/30) 100 UNIT/ML 20 UNIT SUBCUT (18:28)
[2022-01-16] MEDS: ACETAMINOPHEN 500 MG TABLET 1000 MG PO (21:13)
[2022-01-16] MEDS: SODIUM CHLORIDE 0.9 % (FLUSH) 10 ML SYRINGE 5 ML IVF (21:13)
[2022-01-16] MEDS: TRAZODONE HCL 50 MG TABLET 200 MG PO (21:13)
[2022-01-16] MEDS: PRAMIPEXOLE 0.125 MG TABLET 0.25 MG PO (21:14)
[2022-01-17 04:00] VITALS: BP 143/66; PULSE 62; RESP 18; TEMP 36.8; O2SAT 93
[2022-01-17] MEDS: OXYCODONE 5 MG TABLET PO ×2 (04:19→09:53)
[2022-01-17] MEDS: 0.9 % SODIUM CHLORIDE 250 ml IV (04:20)
--- NOTE | 2022-01-17 05:45 | PC.NURSE ---
Shift Note : Pt A&O. Afebrile, oxygen saturations >90% on RA while awake and on CPAP with 2L bled in. Pt up 1 assist with walker and gait belt, steady gait. PRN Oxycodone given for neck and lower back pain with pt reporting relief. Dressing to pt's neck was changed x2 r/t purulent drainage. Ice pack to pt's neck. SCD's and TEDS off for one hour. Pt reiterated this shift that she wants to go home with home care services, updated charge to have social science professor follow up.
[2022-01-17 07:30] VITALS: BP 121/74; PULSE 61; PULSE 62; RESP 18; TEMP 36.8; O2SAT 93
[2022-01-17] MEDS: COENZYME Q10 100 MG CAPSULE PO (09:22)
[2022-01-17] MEDS: FLUTICASONE 110 MCG INHALER 1 PUFF IH (09:22)
[2022-01-17] MEDS: VENLAFAXINE ER 75 MG CAPSULE 225 MG PO (09:22)
[2022-01-17] MEDS: cefTRIAXone 2 GM in 0.9 % SODIUM CHLORIDE Mini-bag 100 ML IVPB (09:22)
[2022-01-17] MEDS: RIVAROXABAN 10 MG TABLET PO (09:22)
[2022-01-17] MEDS: LORATADINE 10 MG TABLET PO (09:22)
[2022-01-17] MEDS: PREGABALIN 75 MG CAPSULE 150 MG PO (09:22)
[2022-01-17] MEDS: INSULIN PROT/ASP (NOVOLOG 70/30) 100 UNIT/ML 30 UNIT SUBCUT (09:23)
[2022-01-17] MEDS: SODIUM CHLORIDE 0.9 % (FLUSH) 10 ML SYRINGE 5 ML IVF (09:23)
[2022-01-17] MEDS: NYSTATIN CREAM 30 GM 1 APPLIC TOPICAL (09:54)
--- NOTE | 2022-01-17 10:56 | PC.SOCIAL ---
Discharge planning: Called [facility] and left message informing them of plan for pt discharge to home today. RN to fax requested information and resumption of PT orders to [facility]. [facility] will contact pt directly to schedule visits.
--- NOTE | 2022-01-17 14:00 | PC.NURSE ---
VSS AND AFEBRILE. PAIN CONTROLLED WITH OXYCODONE. MEPILEX DRESSING PLACED TO NECK INCISION PRIOR TO DISCHARGE. SALINE LOCK DC'D. REVIEWED DC INSTRUCTIONS WITH PATIENT AND HER FRIEND. PATIENT HAS APPOINTMENT TO FOLLOW UP WITH HER SURGEON 01/18/22 AT [facility].
--- NOTE | 2022-01-17 16:06 | PM.DS1 ---
DS: Providers Provider Date Seen: 01/17/22 Date of admission: 01/12/22 22:30 Primary care physician: Anoop Emery MD Admitting Clinician: Dipika Guthrie MD Attending Physician on discharge: Dipika Guthrie MD Date of Discharge: 01/17/22 DS: Diagnosis Discharge Diagnosis (1) Surgical wound infection: Status: Acute Problem details: Patient is status post cervical laminectomy about 3 and half weeks out. Surgeries performed at [facility]. She was doing well postoperatively until the day prior to admission when she became confused had increasing neck pain and fever. No other source for fever was identified. Her surgical incision was erythematous without drainage. She had empiric treatment with vancomycin and piperacillin tazobactam then switch to vancomycin and ceftriaxone. She had continuous improvement in her symptoms. The day prior to discharge she had drainage from her wound and this was cultured. That culture is pending. Gram stain of the fluid was negative for organisms. Arrangements are made for outpatient follow-up tomorrow at [facility] for further evaluation and treatment, She will be discharged on Augmentin and doxycycline pending followup (2) Type 2 diabetes mellitus: Status: Chronic Problem details: Patient should be on insulin for now. Trial of outpatient management of diabetes with Novolin 70 30 twice daily. Follow-up with primary care to optimize insulin therapy. (3) Obstructive sleep apnea treated with continuous positive airway pressure (CPAP): Status: Chronic DS: Summary Hospital Course Hospital Course: 66-year-old female admitted to the hospital with fever, confusion and increasing neck pain. Time of admission the cause of her fever, neck pain and confusion was felt to be an infection her surgical wound. The wound had erythema and tenderness but no drainage. CT of the soft tissues of the neck showed fluid inside the surgical incision. Unclear at the time if this was a seroma or infection. Surgery at [facility] was contacted decision was made not to attempt to aspirate for culture but her treatment was initiated with vancomycin and piperacillin tazobactam. This was then switched to vancomycin and ceftriaxone. She had continuous improvement over the days in a hospital. Her fever resolved. Her neck pain improved. Yesterday her surgical wound began to drain purulent material. This was cultured. Cultures negative so far. The Gram stain of this fluid was showing no organisms. Status at Discharge Functional status at discharge: uses cane/walker Overall status at discharge: patient is progressing back to baseline Time Spent with Patient Time attestation: Total time spent providing and/or coordinating discharge services: Time spent: Greater than 30 minutes Exam Narrative: Exam Narrative: She is alert and appears in no distress. Neck is examined. She has mild erythema extending out 1-2 cm on either side of her incision. This appears less intense than it was on admission. There is still moderate amount of drainage from the upper part of her incision. She has tenderness around her incision as well. Respirations are clear to auscultation. Cardiovascular: S1, S2, regular rate and rhythm. Abdomen is soft without tenderness. Const: Vital Signs, click to edit/add: Vital Signs - 24 hr 01/16/22 19:00 01/16/22 23:00 01/16/22 23:00 Temperature 98 F Pulse Rate Pulse Rate [Left P ulse Oximeter] 70 56 L Respiratory Rate 16 16 Blood Pressure [Ri ght Arm] 142/63 H Pulse Oximetry 91 92 Oxygen Delivery Me thod CPAP Oxygen Flow Rate 0 01/16/22 23:00 01/16/22 23:00 01/17/22 04:00 Temperature 98.2 F Pulse Rate 56 L Pulse Rate [Left P ulse Oximeter] 56 L 62 Respiratory Rate 16 18 Blood Pressure [Ri ght Arm] 143/66 H Pulse Oximetry 91 93 Oxygen Delivery Me thod CPAP CPAP Oxygen Flow Rate 1.5 2 01/17/22 07:30 01/17/22 07:30 01/17/22 07:30 Temperature Pulse Rate 61 Pulse Rate [Left P ulse Oximeter] 61 Respiratory Rate 18 Blood Pressure [Ri ght Arm] Pulse Oximetry 93 Oxygen Delivery Me thod Oxygen Flow Rate 01/17/22 07:30 Temperature 98.2 F Pulse Rate Pulse Rate [Left P ulse Oximeter] 62 Respiratory Rate 18 Blood Pressure [Ri ght Arm] 121/74 Pulse Oximetry 93 Oxygen Delivery Me thod CPAP Oxygen Flow Rate Documenting provider has reviewed patient's vital signs: yes DS: Data Data Completed and Pending Labs on day of discharge: Labs from last 24 hours 01/16/22 06:33 Imm/Tot Granulo (auto) Not Reportable Discharge Plan Discharge Disposition: Home, Self-Care Date of Admission: 01/12/22 22:30 Consulting Providers: Dipika Guthrie Primary Care Provider: Anoop Emery Condition: Improved Anticipated Discharge Date/Time: 01/17/22 10:00 Discharge Medications: New Novolin 70/30 U-100 Insulin 100 unit/mL (70-30) suspension 20 unit subcut BID Qty: 20 0RF Rx Instructions: Take 30 units in the morning and 20 units with evening meal (DME) syringe (disposable) 1 mL syringe See Rx Instructions .Route Qty: 100 0RF Rx Instructions: As directed doxycycline monohydrate 100 mg capsule 100 mg PO BID Qty: 10 0RF amoxicillin-pot clavulanate 875-125 mg tablet 1 tab PO BID Qty: 10 0RF oxycodone 5 mg capsule 5 mg PO Q4H PRN (Reason: pain) Qty: 30 0RF Continued alpha lipoic acid 600 mg capsule 600 mg PO .Bedtime coenzyme Q10 100 mg capsule 100 mg PO DAILY [id number] Tablet 1 tab PO .qd Fish Oil 1 tab PO QDAY ginkgo biloba 40 mg tablet 40 mg PO QDAY Rx Instructions: give with meal/snack ferrous fumarate-vitamin C 132-250 mg tablet 1 tab PO QDAY azelaic acid 15 % gel 1 applic topical BID fluticasone propionate 110 mcg/actuation HFA aerosol inhaler 1 inh inhalation BID hydrochlorothiazide 25 mg tablet 25 mg PO DAILY metformin 500 mg tablet 1,000 mg PO BIDWMEAL loratadine 10 mg capsule 10 mg PO DAILY nystatin 100,000 unit/gram cream 1 applic topical .2-3X/Day pramipexole 0.125 mg tablet 0.625 mg PO DAILY Rx Instructions: TAKES 3 IN THE EVENING AND 2 AT BEDTIME rivaroxaban 10 mg tablet 10 mg PO DAILY trazodone 100 mg tablet 200 mg PO HS venlafaxine 75 mg capsule,extended release 24hr 225 mg PO DAILY Rx Instructions: take with 150mg for total dose of 225mg daily. (DME) Lancets 0 .ROUTE .MEDSUPPLY (DME) Diabetic meter 0 .ROUTE .MEDSUPPLY pregabalin 150 mg capsule 150 mg PO TID Qty: 270 1RF polyethylene glycol 3350 [Miralax] 17 gram/dose powder 17 g PO DAILY PRN (DME) Diabetic Test Strips Misc See Rx Instructions .Route Qty: 300 4RF Rx Instructions: testing TID (DME) Blood Glucose Meter Misc See Rx Instructions .ROUTE Qty: 1 0RF Rx Instructions: As directed alcohol swabs [Alcohol Pads] Pads, Medicated 1 pad topical TID Qty: 200 11RF (DME) lancets Misc See Rx Instructions .ROUTE Qty: 200 11RF Rx Instructions: As directed, testing TID (DME) BD AutoShield Duo Pen Needle 30 gauge x 3/16 needle See Rx Instructions .ROUTE Qty: 100 11RF Rx Instructions: As directed, testing TID Discontinued insulin glargine 100 unit/mL (3 mL) insulin pen 24 unit subcut QAM Qty: 45 3RF insulin aspart U-100 100 unit/mL (3 mL) insulin pen 8 unit subcut TIDWMEAL Qty: 45 3RF glipizide 10 mg tablet extended release 24hr 10 mg PO QDAY Qty: 90 0RF oxycodone-acetaminophen 10-325 mg tablet 1 - 2 tab PO BID PRN (Reason: pain) Qty: 30 0RF Discharge Orders: Discharge Order (Routine); Ordered 01/17/22 Ordered By: Heath Baker Patient Education: Doxycycline (By mouth), Amoxicillin/Clavulanate Potassium (By mouth), Oxycodone, Rapid Release (By mouth), Insulin NPH/Regular (By injection) (NovoLIN 70/30, HumuLIN 70/30,..., Sepsis (GEN) Additional Instructions: See your surgeon tomorrow at [facility] as they have arranged for you. Activity Level: Activity as Tolerated Discharge Diet: Diabetic Follow Up Appointments: Anoop Emery MD [Primary Care Provider] - 01/22/22 2:15 pm (Follow-up in 1-2 weeks to recheck diabetes management) Forms: MyHealth Info Instructions
== END 2022-01-17 12:35 | disposition home or self-care (01) | DRG 862 ==
LOC: ED 16:31 → MEDSURG 20:51
PROVIDERS: Family Medicine; Admitting Provider Family Medicine; Emergency Provider Family Medicine; PCP Family Medicine; Visit Provider Family Medicine
DX: T81.49XA Infection following a procedure, other surgical site, initial encounter (principal); A41.9 Sepsis, unspecified organism; R65.20 Severe sepsis without septic shock; T81.44XA Sepsis following a procedure, initial encounter; M54.2 Cervicalgia; E11.65 Type 2 diabetes mellitus with hyperglycemia; Z79.84 Long term (current) use of oral hypoglycemic drugs; Z98.890 Other specified postprocedural states; G47.33 Obstructive sleep apnea (adult) (pediatric); M54.16 Radiculopathy, lumbar region; F51.04 Psychophysiologic insomnia; F32.A Depression, unspecified; K21.9 Gastro-esophageal reflux disease without esophagitis; I10 Essential (primary) hypertension; M79.7 Fibromyalgia; G89.4 Chronic pain syndrome; M48.02 Spinal stenosis, cervical region; M47.892 Other spondylosis, cervical region; G25.81 Restless legs syndrome; Z86.711 Personal history of pulmonary embolism
CPT/HCPCS: 36415; 70491; 71045; 71260; 72125; 80048; 80053; 81001; 82803; 82947; 82962; 83605; 85025; 86140; 87040; 87070; 87081; 87086; 87186; 87205; 87502; 87634; 87635; 93005; 94761; 97116; 97140; 97161; 97165; 97530; 97535; 99284; 99285; A9270; J0696; J1940; J2543; J3370; J7030; J7050; J7120; Q9967

== ENCOUNTER 2022-01-25 15:10 | Emergency (ER) | payer MEDICARE, BC, SELFPAY ==
[2022-01-25 15:51] VITALS: BP 123/71; PULSE 76; RESP 20; TEMP 36.2; O2SAT 94; BMI 40.6
--- NOTE | 2022-01-25 16:08 | ED_ITS ---
HPI - General Adult General Time Seen by Provider: 16:09 Date Seen: 01/25/22 Chief complaint: Skin/Abscess/Foreign Body Stated complaint: Irritated incision back of neck Time Seen by Provider: 01/25/22 15:51 Source: patient and RN notes reviewed Mode of arrival: ambulatory Limitations: no limitations History of Present Illness HPI narrative: Patient is a 66-year-old female coming in stating that home health is concerned about a wound infection. She had cervical spine surgery at [facility] in December, ended up with a surgical wound infection and was hospitalized here with sepsis at the end of December. A wound culture on her last day of hospitalization from 04/2021 showed MSSA. She went out on Augmentin and doxycycline. She states she completed this Friday. Her pain has been about a 5. She tells me her daughter feels her pain is improving. She notes that she is very forgetful and she trusts her daughters recollection of these events. She is wondering about getting antibiotics. She definitely is not noticing increased back pain. She states she otherwise is feeling well. Besides her plantar fasciitis and her leg pain. She did have soft tissue neck CT as well as cervical spine CT during her last hospitalization. There was fluid collection seen. Does not seem to be noted that there is any ongoing drainage from the surgical wound. Related Data Home Medications Medication Instructions Recorded Confirmed Diabetic meter 10/17/21 01/22/22 Fish Oil 1 tab PO QDAY 10/17/21 01/22/22 Lancets 10/17/21 01/22/22 alpha lipoic acid 600 mg capsule 600 mg PO .Bedtime 10/17/21 01/22/22 azelaic acid 15 % topical gel 1 applic topical BID 10/17/21 01/22/22 bgbmiyf-iqsdjwxya-tegs tablet 1 tab PO .qd 10/17/21 01/22/22 coenzyme Q10 100 mg capsule 100 mg PO DAILY 10/17/21 01/22/22 ferrous fumarate-vitamin C 132 1 tab PO QDAY 10/17/21 01/22/22 mg-250 mg tablet fluticasone propionate 110 1 inh inhalation BID 10/17/21 01/22/22 mcg/actuation HFA aerosol inhaler ginkgo biloba 40 mg tablet 40 mg PO QDAY 10/17/21 01/22/22 hydrochlorothiazide 25 mg tablet 25 mg PO DAILY 10/17/21 01/22/22 loratadine 10 mg capsule 10 mg PO DAILY 10/17/21 01/22/22 metformin 500 mg tablet 1,000 mg PO BIDWMEAL 10/17/21 01/22/22 nystatin 100,000 unit/gram topical 1 applic topical .2-3X/Day 10/17/21 01/22/22 cream pramipexole 0.125 mg tablet 0.625 mg PO DAILY 10/17/21 01/22/22 rivaroxaban 10 mg tablet 10 mg PO DAILY 10/17/21 01/22/22 trazodone 100 mg tablet 200 mg PO HS 10/17/21 01/22/22 venlafaxine 75 mg capsule,extended 225 mg PO DAILY 10/17/21 01/22/22 release 24 hr polyethylene glycol 3350 17 17 g PO DAILY PRN 01/09/22 01/22/22 gram/dose oral powder (Miralax) Previous Rx's Medication Instructions Recorded pregabalin 150 mg capsule 150 mg PO TID #270 caps 10/17/21 Blood Glucose Meter #1 ea 01/09/22 alcohol swabs (Alcohol Pads) 1 pad topical TID #200 ea 01/09/22 pen needle,diabetic dual safty 30 #100 ea 01/09/22 gauge x 3/16 (BD AutoShield Duo Pen Needle) amoxicillin 875 mg-potassium 1 tab PO BID #10 tabs 01/17/22 clavulanate 125 mg tablet doxycycline monohydrate 100 mg 100 mg PO BID #10 caps 01/17/22 capsule insulin human U-100 NPH-regulr 20 unit (0.2 mL) subcut BID #20 mL 01/17/22 70-30 mix 100 unit/mL subcutaneous susp (Novolin 70/30 U-100 Insulin) oxycodone 5 mg capsule 5 mg PO Q4H PRN pain #30 caps 01/17/22 Diabetic Test Strips #300 ea 01/19/22 fluconazole 150 mg tablet 150 mg PO Q3D 2 doses #2 tabs 01/19/22 lancets #200 ea 01/19/22 albuterol sulfate 90 mcg/actuation 2 puff inhalation Q4-6H PRN 01/22/22 aerosol inhaler shortness of breath or wheezing #6.7 grams syringe (disposable) 1 mL #100 ea 01/24/22 cephalexin 500 mg tablet 500 mg PO TID #20 tabs 01/25/22 Allergies Allergy/AdvReac Type Severity Reaction Status Date / Time mupirocin Allergy Unknown Verified 01/25/22 15:51 Review of Systems Status of ROS: Reports: 10 or more systems reviewed and unremarkable except as noted in History and below [facility] Medical History (Updated 01/25/22 @ 17:59 by Rachna Jacobo MD) Achilles tendinitis of both lower extremities Acute lumbar radiculopathy 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 Chronic insomnia Chronic pain syndrome Constipation Depression (12/26/08) Fibromyalgia (12/26/08) Gastroesophageal reflux (12/26/08) Hypertension (04/13/09) Irritable bowel syndrome (12/26/08) Low back pain potentially associated with radiculopathy (05/12/12) Neuropathy of lower extremity Obesity (12/26/08) Obstructive sleep apnea treated with continuous positive airway pressure (CPAP) (12/26/08) Pain of left hip Pelvic floor dysfunction in female Plantar fasciitis, bilateral Pulmonary embolism (05/04/09) Pulmonary embolism Restless legs syndrome Rosacea (12/26/08) Spinal stenosis of cervical region Spinal stenosis of lumbar region Thyroid nodule Trigeminal neuralgia Trochanteric bursitis of left hip Tubular adenoma of colon Type 2 diabetes mellitus Surgical History (Updated 01/12/22 @ 20:00 by Dipika Guthrie MD) H/O dilation and curettage History of discectomy (12/26/08) History of hysteroscopy (12/26/08) History of tonsillectomy and adenoidectomy (12/26/08) History of total knee replacement (05/04/09) History of total right knee replacement Status post appendectomy Family History (Updated 01/12/22 @ 20:03 by Dipika Guthrie MD) Brother Alcohol dependence Father Prostate cancer Diabetes Coronary artery disease, Onset Age: 80 High blood pressure Aunt Breast cancer Social History (Updated 01/12/22 @ 20:00 by Dipika Guthrie MD) Narrative: Her daughter, Asha, is helping her out at home after her recent surgery and stay at [facility]. Smoked 1ppd for 15 years, quit in 1986. SOCIAL HISTORY: as of February 2013. History of alcoholism but she has been sober for 36 years. Very involved in alcoholics anonymous meetings. Basically disabled. Originally from [place]. Not very physically active given her ongoing physical issues but she has been going for short walks sporadically in the last month or so. HABITS: No tobacco alcohol or recreational drug use. Highest level of school completed/degree received: Master's degree Smoking Status: Former smoker What tobacco products do you use: cigarettes Years smoked: 16 Smoking quit date/years: >15 years ago Do you use any of these nicotine containing products: None Second hand tobacco smoke exposure: No How often do you have a drink containing alcohol: never How often do you have six or more drinks on one occasion: Never AUDIT-C Alcohol total score: 0 Non-prescribed substance use: denies use Caffeine: Yes service: No Exam Const: Vital Signs, click to edit/add: Vital Signs - 24 hr 01/25/22 15:51 01/25/22 18:09 Temperature 97.2 F L 97.2 F L Pulse Rate [Pulse Oximeter] 76 76 Respiratory Rate 20 20 Blood Pressure [Le ft Forearm] 123/71 123/71 Pulse Oximetry 94 Oxygen Delivery Me thod Room Air Patient is alert interactive, talking on her I pad to a friend. She looks better, has better coloration in seems more alert and engaging than when I last saw her in the ER. She does baseline have somewhat of a flat affect but her speech is normal, good eye contact, is exceptionally pleasant. Documenting provider has reviewed patient's vital signs: yes Common normals: no apparent distress, oriented x3, no limitations, healthy appearing, alert and well nourished General appearance: cooperative, comfortable and well kempt Nutritional appearance: obese HENMT: Common normals: normocephalic, head/scalp atraumatic, hearing grossly normal bilaterally, external ears normal, external nose normal, nasal mucous membranes and turbinates normal, moist oral mucous membranes, oropharynx normal, dentition normal and gingiva normal Head and scalp: normocephalic and atraumatic Nose: external nose normal and nasal mucous membranes and turbinates normal External ear: external ears normal Eye: Common normals: PERRL, EOMs intact bilaterally, conjunctivae normal and no scleral icterus Conjunctiva: conjunctiva(e) normal Pupil: PERRL Neck & C-Spine: Common normals: no lymphadenopathy, supple, no meningeal signs, no JVD and thyroid normal Thyroid: thyroid normal Other: Her surgical wound is well healed. There is no palpable fluctuance. There is some more intense erythema right around the wound itself. She does complain of some generalized pain when I palpate up and down the wound but it is not at 1 specific site. She states it just feels more tender. There is certainly no evidence of any fluctuant mass underlying this. Lymph: Lymphatic: no lymphadenopathy noted Resp: Common normals: normal respiratory effort, no retractions, no use of accessory muscles and clear to auscultation bilaterally Auscultation: clear to auscultation bilaterally Cardio: Common normals: no JVD, regular rate, regular rhythm, S1 normal heart sound, S2 normal heart sound, no gallops, no clicks and no murmurs Rate: regular rate Rhythm: regular rhythm Heart sounds: S1 normal and S2 normal GI: Common normals: Normal to inspection, nondistended, normoactive bowel sounds present, soft to palpation and non-tender Palpation: soft Extremity: Other: She is moving her upper extremities, strength is 5/5 and symmetrical. Note no focal neurologic deficits. Neuro: Common normals: oriented x3 Sensorium/orientation: alert Meningeal signs: no meningeal signs Psych: Appearance: well kempt Course Course Hospital Course: I do think that we should reconsider imaging her neck. She is just wanting antibiotics and not inclined to do this. I a will at least get some baseline blood work and see where her white count was. It was over 20,000 when she came in last time. Her C-reactive protein was quite elevated last time as well. It did improve during the hospitalization however. I think when she when out her C reactive protein was around 15 if I recollect that from my review of her chart. I would like to get a CBC, basic metabolic panel and a C reactive protein on her. If these are looking normal, we can consider doing oral antibiotics and extending this out for while. There is any concern with her labs, will try to engage her into considering doing soft tissue neck CT imaging. Reevaluation(s) Reevaluation #1: Reviewed with patient that her white blood count is perfectly normal, much better than even when she was discharged from the hospital. C-reactive protein basic metabolic panel are not back yet. However, my plan is to put her on Keflex which should not be affected by the pending labs. Even if her C reactive protein is still up, do feel that we can proceed with oral antibiotics. She states they talked her into coming in, she wishes she would not have. I have reassured her that it was fine to come in. We will hopefully get her out of here shortly however where she can go back to home and be more comfortable which is her desire. Time: 17:56 Vital Signs Vital signs: Initial Vital Signs Temperature 97.2 F L 01/25/22 15:51 Temperature Source Temporal Artery Scan 01/25/22 15:51 Pulse Rate 76 01/25/22 15:51 Pulse Rhythm 01/25/22 15:51 Respiratory Rate 20 01/25/22 15:51 Blood Pressure 123/71 01/25/22 15:51 Blood Pressure Mean 88 01/25/22 15:51 Blood Pressure Position Supine 01/25/22 15:51 Pulse Oximetry 94 01/25/22 15:51 Oxygen Delivery Method 01/25/22 15:51 Vital Signs Temperature 97.2 F L 01/25/22 15:51 Pulse Rate 76 01/25/22 15:51 Respiratory Rate 20 01/25/22 15:51 Blood Pressure 123/71 01/25/22 15:51 Pulse Oximetry 94 01/25/22 15:51 Oxygen Delivery Method 01/25/22 15:51 Temperature 97.2 F L 01/25/22 18:09 Pulse Rate 76 01/25/22 18:09 Respiratory Rate 20 01/25/22 18:09 Blood Pressure 123/71 01/25/22 18:09 Pulse Oximetry 94 01/25/22 15:51 Oxygen Delivery Method 01/25/22 15:51 Medical Decision Making Lab Data Lab results reviewed: Yes I reviewed the patient's lab results Labs: Lab Results 01/25/22 01/25/22 Range/Units 16:26 16:26 WBC 9.72 (4.50-11.00) K/uL RBC 4.74 (4.00-5.20) m/uL Hgb 13.4 (12.0-16.0) gm/dL Hct 41.7 (33.0-51.0) % MCV 88 (80-100) fL MCH 28 (26-34) pg MCHC 32 (32-36) gm/dL RDW Coeff of Steven 15.0 (11.5-15.5) % Plt Count 430 (140-440) K/uL Neut % (Auto) 65.2 (42.0-72.0) % Lymph % (Auto) 24.1 (20-44) % [place] % (Auto) 5.8 (0.0-11.0) % Eos % (Auto) 3.7 (0.0-7.0) % Baso % (Auto) 1.0 (0.0-3.0) % Neut # (Auto) 6.34 (1.7-7.0) K/uL Lymph # (Auto) 2.34 (0.90-2.90) K/uL [place] # (Auto) 0.60 (0.00-0.90) K/UL Eos # (Auto) 0.36 (0.00-0.50) K/uL Baso # (Auto) 0.10 (0.00-0.30) K/uL Abs Immat Gran (auto) 0.02 (0.00-0.30) K/uL Imm/Tot Granulo (auto) 0.2 % Sodium 134 L (135-149) mmol/L Potassium 4.5 (3.6-5.1) mmol/L Chloride 97 (96-114) mmol/L Carbon Dioxide 28 (20-32) mmol/L BUN 16 (7-30) mg/dL Creatinine 0.7 (0.5-1.5) mg/dL Estimated Creat Clear 56.27 Estimated GFR 94 ml/min Glucose 261 H (60-115) mg/dL Calcium 9.5 (8.4-10.6) mg/dL C-Reactive Protein 1.4 H (0.5-1.0) mg/dL Critical Care Time Critical Care Time Critical Care Time: No Discharge Plan Discharge Clinical Impression: Postoperative wound infection Patient Disposition: Home, Self-Care Condition: Stable Instructions: Surgical Site Infections (ED) Additional Instructions: Next dose of oral Keflex due tomorrow morning, take as prescribed. Would recommend that you follow-up with your surgeon next week at [facility] to look at this surgical wound. If you develop fever, have increasing neck pain, the wound is looking more infected rather than improving, do recommend re-evaluation. Prescriptions: New cephalexin 500 mg tablet 500 mg PO TID Qty: 20 0RF No Action alpha lipoic acid 600 mg capsule 600 mg PO .Bedtime coenzyme Q10 100 mg capsule 100 mg PO DAILY cwnnkbz-uwcfewkvk-ptzf Tablet 1 tab PO .qd Fish Oil 1 tab PO QDAY ginkgo biloba 40 mg tablet 40 mg PO QDAY Rx Instructions: give with meal/snack ferrous fumarate-vitamin C 132-250 mg tablet 1 tab PO QDAY azelaic acid 15 % gel 1 applic topical BID fluticasone propionate 110 mcg/actuation HFA aerosol inhaler 1 inh inhalation BID hydrochlorothiazide 25 mg tablet 25 mg PO DAILY metformin 500 mg tablet 1,000 mg PO BIDWMEAL loratadine 10 mg capsule 10 mg PO DAILY nystatin 100,000 unit/gram cream 1 applic topical .2-3X/Day pramipexole 0.125 mg tablet 0.625 mg PO DAILY Rx Instructions: TAKES 3 IN THE EVENING AND 2 AT BEDTIME rivaroxaban 10 mg tablet 10 mg PO DAILY trazodone 100 mg tablet 200 mg PO HS venlafaxine 75 mg capsule,extended release 24hr 225 mg PO DAILY Rx Instructions: take with 150mg for total dose of 225mg daily. (DME) Lancets 0 .Route .MEDSUPPLY (DME) Diabetic meter 0 .Route .MEDSUPPLY pregabalin 150 mg capsule 150 mg PO TID Qty: 270 1RF polyethylene glycol 3350 [Miralax] 17 gram/dose powder 17 g PO DAILY PRN (DME) Blood Glucose Meter Misc See Rx Instructions .Route Qty: 1 0RF Rx Instructions: As directed alcohol swabs [Alcohol Pads] Pads, Medicated 1 pad topical TID Qty: 200 11RF (DME) BD AutoShield Duo Pen Needle 30 gauge x 3/16 needle See Rx Instructions .Route Qty: 100 11RF Rx Instructions: As directed, testing TID albuterol sulfate 90 mcg/actuation HFA aerosol inhaler 2 puff inhalation Q4-6H PRN (Reason: shortness of breath or wheezing) Qty: 6.7 2RF Novolin 70/30 U-100 Insulin 100 unit/mL (70-30) suspension 20 unit subcut BID Qty: 20 0RF Rx Instructions: Take 30 units in the morning and 20 units with evening meal doxycycline monohydrate 100 mg capsule 100 mg PO BID Qty: 10 0RF amoxicillin-pot clavulanate 875-125 mg tablet 1 tab PO BID Qty: 10 0RF oxycodone 5 mg capsule 5 mg PO Q4H PRN (Reason: pain) Qty: 30 0RF (DME) lancets Misc See Rx Instructions .Route Qty: 200 11RF Rx Instructions: As directed, testing TID (DME) Diabetic Test Strips Misc See Rx Instructions .Route Qty: 300 4RF Rx Instructions: testing TID fluconazole 150 mg tablet 150 mg PO Q3D Qty: 2 0RF Rx Instructions: may repeat second dose 72 hrs after first dose if symptoms persist (DME) syringe (disposable) 1 mL syringe See Rx Instructions .Route Qty: 100 3RF Rx Instructions: As directed Follow Up/Referrals: Anoop Emery MD [Primary Care Provider] - Stand Alone Forms: MyHealth Info Instructions
--- OUTSIDE RECORDS SUMMARY | 2022-01-25 16:26 | XMS_ITS | Encounter Summary ---
:1955 Author Organization [facility] Address [address] [address] Care Team Providers Name Role Phone Thalia [...] OF SPINE LOW BACK PAIN Thalia Barron, [facility] [place] [address] [facility], [address] [place] [address] [place] [address] Phone: Fax: Referral ID Status Reason Start Date Expiration Date Visits Requ ested Visits Authorized [id number] Closed 10/06/2018 01/05/[phone] Encounter Details Date Type Department Care Team Description 12/28/2018 Therapy Physicians Neck and Marimar Pan PTA Mechanical low back pain (Primary Dx); Back Center [facility] [address], Cervical spine pain [address] [facility] [place] [address] [place] [address] [phone] Social History Tobacco Use Types Packs/Day Years [...] tolerated) Start: 11:20 am End: 12:08 pm (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 See above. Patient responded well the education [...] in the morning with??Sx < or = to??3-4/10??Been more sore over the last couple days 12/17/18 ?? Breaker Table Worker Goals (>6 weeks): 1. Patient will be independent with home exercise program after discontinued from Physical Therapy.?Progressing??12/17/18 *2. Pt will sit/drive 20 min??with Sx <??or = to 1-04/26??(At Eval: 09/23)??progressing, 12/17/18 *3. Pt will stand??>10 [...] Cervicalgia documented in this encounter Care Teams Director Independent Relationship Specialty Start Date End Date Thalia Barron PA-C PCP - General Physician Hydrogen Cell Tender 10/06/18 documented as of this encounter
--- OUTSIDE RECORDS SUMMARY | 2022-01-25 16:26 | XMS_ITS | Encounter Summary ---
:1955 [facility] Address [address] [place] [address] Care Team Providers Name Role Phone Thalia Barron PA-C Primary Care Provider Unavailable Reason for Visit Reason Comments NECK PAIN PAT STATED NECK IN A LOT OF PAIN TODAY Encounter Details Date Type Department Care Team Description 01/26/2019 Telephone Physicians Neck and Nehemiah Kothari N NIKITA PAIN (PAT STATED Back Center [facility] e PT NECK IN A LOT OF PAIN [address] [address] [facility] [address] [place] [address] [place], [place] [id number] Social History Tobacco Use Types Packs/Day Years [...] PLEASE ADVISE. PAT HAS APPT TODAY @ 6671. THANK YOU, Logan Thomson 01/26/2019, 7:55 AM N CLERK documented in this encounter Plan of Treatment Not on filedocumented as of this encounter Visit Diagnoses Not on filedocumented in this encounter Care Teams School Based Therapist Relationship Specialty Start Date End Date Thalia Barron PA-C PCP - General Physician Oyster Shucker 10/06/18 documented as of this encounter
--- OUTSIDE RECORDS SUMMARY | 2022-01-25 16:26 | XMS_ITS | Encounter Summary ---
:1955 Author Organization [facility] Address [address] [address] Care Team Providers Name Role Phone Thalia [...] OF SPINE LOW BACK PAIN Thalia Barron, [facility] [place] [address] [address] [facility], [address] [place] [address] [place] [address] Phone: Fax: Referral ID Status Reason Start Date Expiration Date Visits Requ ested Visits Authorized [id number] Closed 10/06/2018 01/05/[phone] Encounter Details Date Type Department Care Team Description 01/15/2019 Therapy Physicians Neck and Marimar Pan PTA Mechanical low back pain (Primary Dx); Back Center [facility] [address] [address], Cervical spine pain [address] [facility], [address] [place] [address] [place] [address] [phone] Social History Tobacco Use Types Packs/Day Years [...] tolerated) Start: 10:50 am End: 11:30 am (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 Pt will stand??>3 [...] the morning with??Sx <??or = to??3-4/10??MET 01/12/19?? Field Operations Manager Goals (>6 weeks): ?? 1. Patient [...] documented in this encounter Care Teams Medical Administrator Relationship Specialty Start Date End Date Thalia Barron PA-C PCP - General Physician Director Of Enterprise Architecture 10/06/18 documented as of this encounter
--- OUTSIDE RECORDS SUMMARY | 2022-01-25 16:26 | XMS_ITS | Encounter Summary ---
:1955 [facility] Address [address], [place] [address] Care Team Providers Name Role Phone Thalia Barron PA-C Primary Care Provider Unavailable Encounter Details Date Type Department Care Team Description 02/01/2019 Notes/Orders Physicians Neck and Nehemiah Kothari M echanical low back pain (Primary Dx); Back Center PT Cervical spine pain [place] [address] [facility] [address] [address] [address] [place] [phone] Social History Tobacco Use Types Packs/Day Years [...] Sx <??or = to??3-410 in her feet ??Met 01-28-19 5. Pt will get dressed in the morning with??Sx <??or = to??3-4??MET 01/12/19?? Face And Fill Packer Goals (>6 weeks): ?? 1. Patient will [...] burning??Sx < or = to??1-210 in her feet??(not coo58-0-12, varies day to day) 6. Pt will [...] T-roto Nehemiah Kothari PT 02/01/2019, 7:35 PM ONOLOGY TECHNICIAN documented in this encounter Plan of Treatment Not on filedocumented as of this encounter Visit Diagnoses Diagnosis Mechanical low back pain - Primary Lumbago Cervical spine pain Cervicalgia documented in this encounter Care Teams Manager Android Relationship Specialty Start Date End Date Thalia Barron PA-C PCP - General Physician Skein Winding Operator 10/06/18 documented as of this encounter
--- OUTSIDE RECORDS SUMMARY | 2022-01-25 16:26 | XMS_ITS | Encounter Summary ---
:1955 Author Organization Formerly [facility], 1928–1983 Address [address] [place] [address] Care Team Providers Name Role Phone Thalia [...] OF SPINE LOW BACK PAIN Thalia Barron, PnGeneral Leonard Wood Army Community HospitalLockwood [place]-C [address] [address] [address] [facility], [address] [place] [address] [place] [address] Phone: Fax: Referral ID Status Reason Start Date Expiration Date Visits Requ ested Visits Authorized [id number] Closed 10/06/2018 01/05/[phone] Encounter Details Date Type Department Care Team Description 01/26/2019 Therapy Physicians Neck and Nehemiah Kothari M echanical low back pain (Primary Dx); Back Center Madisonbrenda tyler PT Cervical spine pain [address] [facility], [address] [place] [address] [place] [address] [place] [address] [phone] Social History Tobacco Use Types Packs/Day Years [...] out as lesley) Start: 12:24 End: 1:02 (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 Pt will??perform bed mobility (scooting, rolling, supine to sit etc.)??with moderate Sx 3-4/10?? MET 01/12/19 4. Pt will walk (with walker) ??>3 min with burning Sx <??or = to??3-10 in her feet ??Feet more of issue than low back, not applicable goal for pt. ??01/12/19 5. Pt will get dressed in the morning with??Sx <??or = to??3-06/24??MET 01/12/19?? Shelter Goals (>6 weeks): ?? 1. Patient will be independent with home exercise program after discontinued from Physical Therapy.?Progressing??12/17/18 *2. Pt will sit/drive 20 min??with Sx <??or = to 1-04/26??(At Eval: 09/23)??met 01/18/19 *3. Pt will stand??>10 [...] 38 Nehemiah Kothari, PT 01/26/2019, 1:52 PM UNITY CENTER WORKER documented in this encounter Plan of Treatment Not on filedocumented as of this encounter Visit Diagnoses Diagnosis Mechanical low back pain - Primary Lumbago Cervical spine pain Cervicalgia documented in this encounter Care Teams It Lead Relationship Specialty Start Date End Date Thalia Barron PA-C PCP - General Physician Manager Hydraulic 10/06/18 documented as of this encounter
--- OUTSIDE RECORDS SUMMARY | 2022-01-25 16:26 | XMS_ITS | Encounter Summary ---
:1955 Author Organization [facility] Address [address], [place] [address] Care Team Providers Name Role Phone Thalia [...] OF SPINE LOW BACK PAIN Thalia Barron, [facility] RODRIGO [address] [address] [facility], [address] [place] [address] [place] [address] Phone: Fax: Referral ID Status Reason Start Date Expiration Date Visits Requ ested Visits Authorized [id number] Closed 10/06/2018 01/05/[phone] Encounter Details Date Type Department Care Team Description 01/28/2019 Therapy Physicians Neck and Marimar Pan PTA Mechanical low back pain (Primary Dx); Back Center [facility] [address] [facility], Cervical spine pain [address] [facility], [address] [place] [address] [place] [address] [phone] Social History Tobacco Use Types Packs/Day Years [...] tolerated) Start: 11:20 am End: 12:00 pm (STAFF SERVICES MANAGER Visit # 1 Subjective: Patient plans to [...] to avoid flare Tests performed today (see [facility] for score and outcomes): : Oswestry=42% today, [...] discharges from the rehab and transitions to [facility] for strength maintenance of the cervical [...] exercise sheet and match the machines that [facility] uses. All STG's met, 3/6 LTG met. Goals: Short Term Goals (4-6 [...] the morning with??Sx <??or = to??3-06/24??MET 01/12/19?? Stem Assembler Goals (>6 weeks): ?? 1. Patient will [...] < or = to??1-2 in her feet??(not [id number], varies day to day) 6. Pt will get dressed in the morning with??Sx < or = to??-04/26 partially met 01-28-19 (some good days and [...] 40 Khadijah Pan PTA 01/28/2019, 2:34 PM HASING ENGINEER documented in this encounter Plan of Treatment Not on filedocumented as of this encounter Visit Diagnoses Diagnosis Mechanical low back pain - Primary Lumbago Cervical spine pain Cervicalgia documented in this encounter Care Teams Guitar Teacher Relationship Specialty Start Date End Date Thalia Barron PA-C PCP - General Physician Food And Beverage Order Clerk 10/06/18 documented as of this encounter
--- OUTSIDE RECORDS SUMMARY | 2022-01-25 16:26 | XMS_ITS | Encounter Summary ---
:1955 Author Organization [facility] Address [address] [address] Care Team Providers Name Role Phone Thalia [...] OF SPINE LOW BACK PAIN Thalia Barron, [facility] [place]IG[place] [address] [place] [address] [facility], [address] [place] [address] [place] [address] Phone: Fax: Referral ID Status Reason Start Date Expiration Date Visits Requ ested Visits Authorized [id number] Closed 10/06/2018 01/05/[phone] Encounter Details Date Type Department Care Team Description 01/12/2019 Therapy Physicians Neck and Bubba Kwong, [facility] hanical low back pain (Primary Dx); Back Center [facility] CLOTH PRINTER Cervical spine pain [address] [facility], [address] [facility] , [address] [place] [address] [place] [address] [phone] (Wo rk) Social History Tobacco Use Types [...] out as tolerated) Start: 1110a End: 1152a (CLOTH PRINTER Visit # 1 Subjective: Pt reports neck [...] of the benefits related to completing the [facility] Rehab program Increase most auxiliary machines and [...] the morning with??Sx <??or = to??3-4/10??MET 01/12/19?? Half-Way Goals (>6 weeks): ?? 1. Patient will [...] 42 Total treatment time: 42 Bubba Kwong, CLOTH PRINTER 01/12/2019, 11:56 AM Associated attestation - Cecilia Calloway MD - 01/14/2019 7:40 AM CDT Agree with assessment and treatment plan documented in this encounter Plan of Treatment Not on filedocumented as of this encounter Visit Diagnoses Diagnosis Mechanical low back pain - Primary Lumbago Cervical spine pain Cervicalgia documented in this encounter Care Teams Customer Business Manager Relationship Specialty Start Date End Date Thalia Barron PA-C PCP - General Physician Home Health Aid 10/06/18 documented as of this encounter
--- OUTSIDE RECORDS SUMMARY | 2022-01-25 16:26 | XMS_ITS | Encounter Summary ---
:1955 Author Organization [facility] Address [address] [place] [address] Care Team Providers Name Role Phone Thalia [...] SPINE LOW BACK PAIN Thalia Barron, PnCarondelet HealthMilnesville PA-C [address] [place] [address] [facility], [address] [place] [address] [place] [address] Phone: Fax: Referral ID Status Reason Start Date Expiration Date Visits Requ ested Visits Authorized [id number] Closed 10/06/2018 01/05/[phone] Encounter Details Date Type Department Care Team Description 12/25/2018 Therapy Physicians Neck and Back Margarette Taylor Mechanical low back pain (Primary Dx); [facility] ZACHERY Crocker Cervical spine pain [address] [facility], [address], [place] [address] [place] [address] [place] [address] [phone] Social History Tobacco Use Types Packs/Day Years [...] out as lesley) Start: 11:14 End: 12:00 (HOT MILL SHEARER Visit # 2 Subjective: Pt says she [...] of the benefits related to completing the [facility] Rehab program Assessment: self regulates [...] over the last couple days 12/17/18 ?? Distribution Center Associate Goals (>6 weeks): 1. Patient will be [...] Cervicalgia documented in this encounter Care Teams Linux System Admin Relationship Specialty Start Date End Date Thalia Barron PA-C PCP - General Physician [employer] Crew Boss 10/06/18 documented as of this encounter
--- OUTSIDE RECORDS SUMMARY | 2022-01-25 16:26 | XMS_ITS | Encounter Summary ---
:1955 Author [facility] Address [address] [place] [address] Care Team Providers Name Role Phone Thalia Barron PA-C Primary Care Provider Unavailable Reason for Visit Reason Comments Other Home Exercise Question Encounter Details Date Type Department Care Team Description 02/04/2019 Telephone Physicians Nura, Marimar Cid, RIGGING ENGINEER Other (Home Exercise Back Center [facility] [address] [facility], Question) [address] [facility], [facility] [address] [place] [address] [place] [address] [phone] Social History Tobacco Use Types Packs/Day Years [...] call back. Catherine Ramirez 02/04/2019, 1:53 PM SERVICE ADVISOR Catherine Ramirez - 02/04/2019 1:34 PM CST [...] head weight? Catherine Ramirez 02/04/2019, 1:35 PM SERVICE ADVISOR documented in this encounter Plan of Treatment Not on filedocumented as of this encounter Visit Diagnoses Not on filedocumented in this encounter Care Teams Piano Case Maker Relationship Specialty Start Date End Date Thalia Barron PA-C PCP - General Physician Chief Librarian Branch Or Department 10/06/18 documented as of this encounter
--- OUTSIDE RECORDS SUMMARY | 2022-01-25 16:26 | XMS_ITS | Encounter Summary ---
:1955 Author Organization [facility] Address [address] [address] Care Team Providers Name Role Phone Thalia Barron PA-C Primary Care Provider Unavailable Reason for Visit Reason Comments Other Encounter Details Date Type Department Care Team Description 01/04/2019 Telephone Physicians Neck and Back Center Yuri Calloway MD [facility] [id number] [place] [address] [facility], [address] [place] [address] Social History Tobacco Use Types Packs/Day Years Used Date Smoking Tobacco: Never Alcohol Use Standard Drinks/Week Comments No 0 (1 standard drink = 0.6 oz pure alcoho l) Recovering alcoholic Sex Assigned at Date Recorded Not on file documented as of this encounter Nursing Notes Nehemiah Kothari PT - 01/04/2019 11:33 AM CDT Thank you for the update. Catherine Bowman - 01/04/2019 9:57 AM CDT Yaz called and stated that she was able to set up and stand at a [employer] event on Friday for several hours with [...] on filedocumented in this encounter Care Teams Cath Lab Manager Relationship Specialty Start Date End Date Thalia Barron PA-C PCP - General Physician Mainspring Barrel Assembly Cleaner 10/06/18 documented as of this encounter
--- OUTSIDE RECORDS SUMMARY | 2022-01-25 16:26 | XMS_ITS | Encounter Summary ---
:1955 [facility] Address [address], [place] [address] Care Team Providers Name Role Phone Thalia Barron PA-C Primary Care Provider Unavailable Reason for Visit Reason Onset Date Comments ARM PAIN 12/31/2018 LEG PAIN 12/31/2018 BACK PAIN 12/31/2018 NECK PAIN 12/31/2018 Encounter Details Date Type Department Care Team Description 12/31/2018 Office Visit Physicians Prashanth and Cecilia Calloway, Post l aminectomy syndrome; Back Center Mechanical low back pain; [place] Cervical disc syndrome; [address] [place] Cervical spin al stenosis; Center, [address] Muscular deconditioning [place], [place] [id number] Social History Tobacco Use Types Packs/Day Years [...] MD 12/31/2018, 4:34 PM Thalia Barron PA-C [address] [place] [address] documented in this encounter Plan of Treatment [...] classified documented in this encounter Care Teams Clinical Laboratory Technologist Relationship Specialty Start Date End Date Thalia Barron PA-C PCP - General Physician Lead Software Engineer 10/06/18 documented as of this encounter
--- OUTSIDE RECORDS SUMMARY | 2022-01-25 16:26 | XMS_ITS | Encounter Summary ---
:1955 Author Organization [facility] Address [address] [address] Care Team Providers Name Role Phone Thalia [...] OF SPINE LOW BACK PAIN Thalia Barron, [facility] R[place]RIG[place] [address] [place] [address] [facility], [address] [place] [address] [place] [address] Phone: Fax: Referral ID Status Reason Start Date Expiration Date Visits Requ ested Visits Authorized [id number] Closed 10/06/2018 01/05/2020 999 999 Encounter Details Date Type Department Care Team Description 12/31/2018 Therapy Physicians Neck and Marimar Pan PTA Mechanical low back pain (Primary Dx); Back Center [facility] [address] [facility], Cervical spine pain [address] [facility], [address] [place] [address] [place] [address] [phone] Social History Tobacco Use Types Packs/Day Years [...] tolerated) Start: 11:20 am End: 12:00 pm (ACCOUNTING PROFESSOR Visit # 4 Subjective: Patient reports her body doesn't want to work well today. She continues to worry why thecold pack doesn't fit around her waist anymore. She states she doesn't feel like she is eating more/gaining wt. Patient has an MD follow up instead of her hopper attendant so she hopes that appt will get her a referral to the hopper attendant quicker. Patient states she did not do [...] rotation ROM changes: Tests performed today (see reviewfloweet for score [...] of the benefits related to completing the [facility] Rehab program Assessment: Pt tolerated [...] rolling, supine to sit etc.)??with moderate Sx 3-4?? Patient able to get into bed easy [...] days 12/17/18 ?? Fpc Goals (>6 weeks): ?? 1. Patient will be independent with home exercise program after discontinued from Physical Therapy.?Progressing??12/17/18 *2. Pt will sit/drive 20 min??with Sx <??or = to 1-210??(At Eval: 09/23)??progressing, 12/17/18 *3. Pt will stand??>10 [...] Observed treatment. Goals/Plan of Care discussed with ACCOUNTING PROFESSOR. Treatment progressing and appropriate. Nehemiah Kothari, SANDRA 01/01/2019, 8:52 AM documented in this encounter Plan of Treatment Not on filedocumented as of this encounter Visit Diagnoses Diagnosis Mechanical low back pain - Primary Lumbago Cervical spine pain Cervicalgia documented in this encounter Care Teams Process Architect Relationship Specialty Start Date End Date Thalia Barron PA-C PCP - General Physician Curriculum Coach 10/06/18 documented as of this encounter
--- OUTSIDE RECORDS SUMMARY | 2022-01-25 16:26 | XMS_ITS | Encounter Summary ---
:1955 [facility] Address [address], [place] [address] Care Team Providers Name Role Phone Thalia Barron PA-C Primary Care Provider Unavailable Reason for Visit Reason Onset Date Comments BACK PAIN, LOW 01/28/2019 NECK PAIN 01/28/2019 Encounter Details Date Type Department Care Team Description 01/28/2019 Office Visit Physicians Prashanth and Cecilia Calloway, Post l aminectomy syndrome; Back Center Mechanical low back pain; [place] Cervical spine pain; [address] [facility], [address] [place] [address] Social History Tobacco Use Types [...] call our clinic or your family doctor. ICIAN PEDIATRICIAN documented in this encounter Progress Notes Cecilia [...] week and daily stretches. Thalia Barron PA-C [address] [place] [address] ICIAN PEDIATRICIAN documented in this encounter Plan of Treatment Not on filedocumented as of this encounter Visit Diagnoses Diagnosis Post laminectomy syndrome Postlaminectomy syndrome, unspecified re gion Mechanical low back pain Lumbago Cervical spine pain Cervicalgia Muscular deconditioning Muscular wasting and disuse atrophy, not elsewhere classified documented in this encounter Care Teams Staking Press Operator Relationship Specialty Start Date End Date Thalia Barron PA-C PCP - General Physician Care Services Manager 10/06/18 documented as of this encounter
--- OUTSIDE RECORDS SUMMARY | 2022-01-25 16:26 | XMS_ITS | Encounter Summary ---
:1955 Author Organization [facility] Address [address] [place] [address] Care Team Providers Name Role Phone Thalia Barron PA-C Primary Care Provider Unavailable Reason for Visit Reason Comments NECK PAIN BACK PAIN Consult/Transfer Care (Routine) - Closed Specialty Diagnoses / Procedures Referred By Contact Refer red To Contact Physical Therapy Diagnoses Other cervical disc degeneration, unspecified cervical region (HRC) Spinal stenosis, cervical region CERV PAIN STENOSIS OF SPINE LOW BACK PAIN Thalia Barron, PnFreeman Heart InstituteWeatherford [place]-C [address] [place] [address] [facility], [address] [place] [address] [place] [address] Phone: Fax: Referral ID Status Reason Start Date Expiration Date Visits Requ ested Visits Authorized [id number] Closed 10/06/2018 01/05/[phone] Encounter Details Date Type Department Care Team Description 01/08/2019 Therapy Physicians Neck and Sherin Nguyễn, chanical low back pain (Primary Dx); Back Center Ivanmartha tyler PT Cervical spine pain [address] [facility], [address] [address] [place] [address] [place] [address] [phone] Social History Tobacco Use Types Packs/Day Years [...] as tolerated) Start: 12:42 pmEnd: 1:28 pm (INSHORE UNDERSEA WARFARE OFFICER Visit # 0 Subjective: Patient arrived early for her originally scheduled appointment but was able to be seen earlier for treatment. Patient states she had a big jump in heartrate while at [facility] on 12/28/18 which jumped up to 158 [...] 80 foot pounds. Tests performed today (see [facility] for score and outcomes): : Heartrate: See [...] 2 - Other With Lats: Used B Au Train. Quads with Large Block and pillow behind [...] patient reports that was due to having mandaeism discomfort; informed patient that would repeat same [...] dressed in the morning with??Sx <??or = to??3-4/10??Been more sore over the last couple days 12/17/18 ?? Special Weapons Unit Officer Goals (>6 weeks): ?? 1. Patient will [...] Cervicalgia documented in this encounter Care Teams Kaiawhina Relationship Specialty Start Date End Date Thalia Barron PA-C PCP - General Physician Coal Digger 10/06/18 documented as of this encounter
--- OUTSIDE RECORDS SUMMARY | 2022-01-25 16:26 | XMS_ITS | Clinical Summary ---
:1955 Author Organization [facility] Address [address] [place] [address] Care Team Providers Name Role Phone Thalia [...] for each transition of care or referral. [employer] Allergies Active Allergy Reactions Severity Noted Date [...] 50 MG OR Take one tablet 0 200 Active TABS by mouth at 8 bedtime. VITEX EXTRACT 175 MG OR Take one capsule 0 200 Active CAPS by mouth twice 8 daily COENZYME Q10 100 MG OR Take one tablet 0 200 Active TABS by mouth daily 8 L-LYSINE HCL 500 MG OR Take 2 tablets by 0 04/21/200 Active TABS mouth every 8 morning FISH [...] 8 hydrochlorothiazide (AKA Take 1 tablet by 90 03/27/19 1 Active HYDRODIURIL) 25 MG tablet [...] gabapentin (AKA NEURONTIN) Take 1 capsule by 04/26 Active 300 MG capsule mouth 4 [...] PRN. LW Addl Instr:for eczema on hand [place]-3 Fatty Acids ([facility] Take 1 capsule by [...] 15 3 Active (AKA MYCOLOG-II) Applicatorful 0 [id number] UNIT/GM-% cream topically 3 times daily. LW [...] Pressure 118/80 05/01/2009 7:20 AM C: Dynamap REMOTELY PILOTED VEHICLE CONTROLLER Pulse 102 05/01/2009 7:20 AM REMOTELY PILOTED VEHICLE CONTROLLER Temperature 36.7 ??C (98.1 ??F) 05/01/2009 7:20 AM ORAL C: 9 8.1 F REMOTELY PILOTED VEHICLE CONTROLLER Respiratory Rate 16 05/01/2009 7:20 AM REMOTELY PILOTED VEHICLE CONTROLLER Oxygen Saturation 96% 05/01/2009 7:21 AM REMOTELY PILOTED VEHICLE CONTROLLER Inhaled Oxygen Concentration - - Weight - [...] Phone Addre ss Type Group MEDICARE MEDICARE [id number] 2012-Presen [phone] Medicare MANAGED CARE t 5 BCBS BCBS BCBS [place] [id number] 2016-Presen [phone] [address] [id number] Medicare BLUE t 5 [place] [address] Guarantor Name Account Type Relation to Date of Phone Billing Patient Address Dilcia Multani, Personal/Family Self 1955 [address] (Home) [place] [phone] (Work) Dilcia Multani Personal/Family Self 1955 [address] (Home) [place] [address] Dilcia Multani, Personal/Family Self 1955 [address] (Home) [place], [place] [phone] (Work) Care Teams Hat Liner Relationship Specialty Start Date End Date Thalia Barron PA-C PCP - General Physician Food Technology Teacher 10/06/18
--- OUTSIDE RECORDS SUMMARY | 2022-01-25 16:26 | XMS_ITS | Clinical Summary ---
:1955 Author Organization [facility] [place] [address] Care Team Providers Name Role Phone Anoop [...] syndrome) needed. fluticasone (50 mcg Inhale 1 [place] 0 12/29/19 Active per actuation) nasal to [...] Take 1 capsule. 0 12/29/19 Active oils-om3,6,9no1 (Galt by mouth once 22 3-6-9) 1,200 mg [...] 10/27/1912/28/ Discontinu ed composerIndications: Please send to [facility] [address] [place] [address] 2021 (*Med Sleep apnea in adult complete/Regim [...] egim en complete/L evel of care change) [id number] 3-35-2 TAKE 1 TABLET BY 60 Tablet [...] Date Type Specialty Care Team Description 01/07/2022 Assisted Fatmata Eid MD Er ror-please disregard 01/07/2022 Travel 01/03/2022 Orders Only Scanner <No scans attac hed> 01/03/2022 Nurse Triage Fang Oconnor RN Abnormal L ab Results (Abnormal BMP) 01/02/2022 Assisted Emi Wyatt NP Transition al Care Visit (BIRD CAGE ASSEMBLER admit ) 01/02/2022 Nurse Triage Renata Underwood [...] Group MEDICARE PART A MEDICARE PART A [id number] 2012-Presen ATTN: CLAIMS - HB USE ONLY HB ONLY t [address] [place] [id number] MEDICARE PART B MEDICARE PART B [id number] 2012-Presen ATTN: CLAIMS - HB USE ONLY HB ONLY t [address] [place] [address] MEDICARE PART B MEDICARE PART B [id number] 2012-Presen ATTN: CLAIMS - HB USE ONLY HB ONLY t [address] [place] [address] BLUE CROSS MR MR BC [place] [id number] 2013-Presen [phone] [place] [address] BLUE CROSS BLUE CROSS [id number] 2016-[place] [address] [address] [place] BLUE t [place], [place] HB ONLY [phone] BLUE CROSS MR BLUE CROSS [id number] 2016-Presen [address] [address] [place] BLUE t [place], [place] MR [place] ONLY [phone] Advance Directives Latest Code Status on File Code Status Date Activated Date Inactivated Comments Full Code 2005 1:25 PM 05/17/2005 7:54 PM Full Code 2005 9:32 AM 2005 1:25 PM Care Teams Risk Management Internship Relationship Specialty Start Date End Date Anoop Emery MD PCP - General Family Practice 04/09/211999 [place] [address]
--- OUTSIDE RECORDS SUMMARY | 2022-01-25 16:26 | XMS_ITS | Encounter Summary ---
:1955 Author Organization [facility] Address [address] [address] Care Team Providers Name Role Phone Thalia [...] LOW BACK PAIN Thalia Barron, [facility] [place] [address] [place] [address] [facility], [address] [place] [address] [place] [address] Phone: Fax: Referral ID Status Reason Start Date Expiration Date Visits Requ ested Visits Authorized [id number] Closed 10/06/2018 01/05/[phone] Encounter Details Date Type Department Care Team Description 01/18/2019 Therapy Physicians Neck and Marimar Pan PTA Mechanical low back pain (Primary Dx); Back Center [facility] [address], Cervical spine pain [address] [facility], [address] [place] [address] [place] [address] [phone] Social History Tobacco Use Types Packs/Day Years [...] tolerated) Start: 11:15 am End: 12:00 pm (GUARD CAPTAIN Visit # 3 Subjective: Patient was really [...] torso rotation exercises. Tests performed today (see [facility] for score and outcomes): : Oswestry : [...] of the benefits related to completing the [facility] Rehab program LENCHO, NDI see above for results. Improved on both indexes. Patient responded well the education on improvement with her strength gains and impact on daily lifetoday. Assessment: ROM: no changes. Graph #'s discussed in how much improvement has occurred since start ofcare at [facility]> Goals: reviewed with LENCHO/NDI Pt tolerated [...] will stand??>3 min??with Sx <??or = to 3-06/24??(At Eval: 09/23) ??Met 01-18-19 3. Pt will??perform bed mobility (scooting, rolling, supine to sit etc.)??with moderate Sx 3-4?? MET 01/12/19 4. Pt will walk (with walker) ??>3 min with burning Sx <??or = to??-06/24 in her feet ??Feet more of issue than low back, not applicable goal for pt. ??01/12/19 5. Pt will get dressed in the morning with??Sx <??or = to??3-06/24??MET 01/12/19?? Spot Worker Goals (>6 weeks): ?? 1. Patient will [...] < or = to??1-04/26 in her feet (not met 01-18-19) 6. Pt will get dressed in the morning with??Sx < or = to??1-210 ?? Certification Dates:??01/12/19 - 04/11/19 ?? Re-Certification: [...] 45 Khadijah Pan PTA 01/18/2019, 2:10 PM TRICAL ENGINEERING TECHNOLOGIST documented in this encounter Plan of Treatment Not on filedocumented as of this encounter Visit Diagnoses Diagnosis Mechanical low back pain - Primary Lumbago Cervical spine pain Cervicalgia documented in this encounter Care Teams District Associate Judge Relationship Specialty Start Date End Date Thalia Barron PA-C PCP - General Physician Motor Coach Supervisor 10/06/18 documented as of this encounter
--- OUTSIDE RECORDS SUMMARY | 2022-01-25 16:26 | XMS_ITS | Encounter Summary ---
:1955 Author Organization [facility] Address [address] [place] [address] Care Team Providers Name Role Phone Thalia Barron PA-C Primary Care Provider Unavailable Reason for Visit Reason Comments Other HEP bands Encounter Details Date Type Department Care Team Description 01/21/2019 Telephone Physicians Neck and Back Nehemiah Kothari, PT Other (HEP bands) [facility] [address] [place] [address] [facility], [facility] [address] [place] [address] [place] [address] [phone] Social History Tobacco Use Types Packs/Day Years [...] with information. Catherine Ramirez 01/21/2019, 8:46 AM P UNDERWRITER documented in this encounter Plan of Treatment Not on filedocumented as of this encounter Visit Diagnoses Not on filedocumented in this encounter Care Teams Equipment Washer Relationship Specialty Start Date End Date Thalia Barron PA-C PCP - General Physician Health Information Administrator 10/06/18 documented as of this encounter
--- OUTSIDE RECORDS SUMMARY | 2022-01-25 16:27 | XMS_ITS | Encounter Summary ---
:1955 Author Organization [facility] Address [address] [place] [address] Care Team Providers Name Role Phone Thalia [...] SPINE LOW BACK PAIN Thalia Barron, [facility] [place] [address] [address] [facility], [address] [place] [address] [place] [address] Phone: Fax: Referral ID Status Reason Start Date Expiration Date Visits Requ ested Visits Authorized [id number] Closed 10/06/2018 01/05/[phone] Encounter Details Date Type Department Care Team Description 12/01/2018 Therapy Physicians Neck and Bubba Kwong, [facility] hanical low back pain (Primary Dx); Back Center [facility] jayson [facility] Cervical spine pain [address] [facility], [address] [facility] , [address] [place] [address] [place] [address] [phone] (Wo rk) Social History Tobacco Use Types [...] out as tolerated) Start: 1109a End: 1202p (FAST FOOD ASSISTANT RESTAURANT MANAGER Visit # 4 Subjective: Pt reports neuropathy [...] Tests & Measures: Tests performed today (see [facility] for score and outcomes): : Oswestry and [...] the benefits related to completing the [facility] Rehab program Therapeutic activities with standing [...] morning with??Sx < or = to??3-4/10 ?? Commutator Inspector Goals (>6 weeks): 1. Patient will be [...] 53 Total treatment time: 53 Bubba Kwong, FAST FOOD ASSISTANT RESTAURANT MANAGER 12/01/2018, 12:52 PM Associated attestation - Sherin Nguyễn, PT - 12/01/2018 1:41 PM CDT Observed treatment. Goals/Plan of Care discussed with FAST FOOD ASSISTANT RESTAURANT MANAGER. Treatment progressing and appropriate. Sherin Nguyễn, SANDRA 12/01/2018, 1:41 PM documented in this encounter Plan of Treatment Not on filedocumented as of this encounter Visit Diagnoses Diagnosis Mechanical low back pain - Primary Lumbago Cervical spine pain Cervicalgia documented in this encounter Care Teams Machine Slat Basket Maker Relationship Specialty Start Date End Date Thalia Barron PA-C PCP - General Physician Moisture Meter Operator 10/06/18 documented as of this encounter
--- OUTSIDE RECORDS SUMMARY | 2022-01-25 16:27 | XMS_ITS | Encounter Summary ---
:1955 Author [facility] Address [address] [place] [address] Care Team Providers Name Role Phone Denise Harris MD Primary Care Provider Encounter Details Date Type Department Care Team Description 01/24/2010 Office Visit [facility] Joshua Pires MD [address] [place] [address] [place] [address] [place] [address] [phone] (Wo rk) Social History Tobacco Use Types Packs/Day Years Used Date Smoking Tobacco: Former Alcohol Use Standard Drinks/Week Comments No 0 (1 standard drink = 0.6 oz pure alcoho l) Recovering alcoholic Sex Assigned at Date Recorded Not on file documented as of this encounter Progress Notes Joshua Zaidi MD - 01/24/2010 12:01 AM CST NAME: FANTA GREGORIO VISIT: [id number] DICTATING CLINICIAN: JOSHUA ZAIDI MD JOB: [id number] LOC: 3711 CLINIC PROGRESS NOTE DATE OF VISIT: 01/24/2010 Fanat is a 54-year-old who is coming in [...] she is encouraged to call clinic. D: [id number] T: [id number] DOCUMENT: [id number] GER OF REGULATORY AFFAIRS documented in this encounter Plan of Treatment Not on filedocumented as of this encounter Visit Diagnoses Not on filedocumented in this encounter Care Teams Economics Faculty Member Relationship Specialty Start Date End Date Denise Harris MD PCP - General 06/17/10 10/05/181999 [place] [address] documented as of this encounter
--- OUTSIDE RECORDS SUMMARY | 2022-01-25 16:27 | XMS_ITS | Encounter Summary ---
:1955 Author Organization [facility] Address [address] [address] Care Team Providers Name Role Phone Denise Harris MD Primary Care Provider Encounter Details Date Type Department Care Team Description 04/25/2009 PN Conversion Only OTHER CONVERSION [address] [place] [address] Social History Tobacco Use Types Packs/Day Years [...] filedocumented in this encounter Care Teams Manager Documentation Relationship Specialty Start Date End Date Denise aHrris MD PCP - General 06/17/10 10/05/[address] [place] [address] documented as of this encounter
--- OUTSIDE RECORDS SUMMARY | 2022-01-25 16:27 | XMS_ITS | Encounter Summary ---
:1955 Author Organization [facility] Address [address] [place] [address] Care Team Providers Name Role Phone Denise Harris MD Primary Care Provider Encounter Details Date Type Department Care Team Description 05/05/2009 Office Visit [facility] Joshua Pires MD [address] [facility] [place] [address] [place] [address] [phone] (Wo rk) Social History Tobacco Use Types [...] 07/07/102019 Note Time: 05/05/09 0001 Status: Signed Project Accountant: Joshua Zaidi MD (Physician) NAME: FANTA GREGORIO VISIT: [id number] DICTATING CLINICIAN: JOSHUA ZAIDI MD JOB: [id number] LOC: 3711 CLINIC PROGRESS NOTE DATE OF VISIT: 05/05/2009 Fanat is a 53-year-old that is coming in today for a postop visit. She underwent left knee total arthroplasty on 04/25/2009. She is now 10 days out from surgery. She has been staying in transitional care at [facility]. She is very happy with her care there. She has continued to progress on her physical therapy. Once she is discharged from the facility in approximately a week, she would like to attend physical therapy at [place]. Fanta's postop recovery has been complicated with [...] arthroplasty on 04/25/2009; ten days. PLAN: 1. [place] were removed from her incisions today. They [...] she is encouraged to call clinic. DOCUMENT: [id number] RACT RECRUITER documented in this encounter Plan of Treatment Not on filedocumented as of this encounter Visit Diagnoses Not on filedocumented in this encounter Care Teams Calendar Control Clerk Blood Bank Relationship Specialty Start Date End Date Denise Harris MD PCP - General 06/17/10 10/05/181999 [place] [address] documented as of this encounter
--- OUTSIDE RECORDS SUMMARY | 2022-01-25 16:27 | XMS_ITS | Encounter Summary ---
:1955 Author Organization [facility] Address [address] [place] [address] Care Team Providers Name Role Phone Thalia [...] OF SPINE LOW BACK PAIN Thalia Barron, [facility]usk [facility] Center[facility]emption [place] [address] [address] [facility], [address] [place] [address] [place] [address] Phone: Fax: Referral ID Status Reason Start Date Expiration Date Visits Requ ested Visits Authorized [id number] Closed 10/06/2018 01/05/2020 999 999 Encounter Details Date Type Department Care Team Description 12/17/2018 Therapy Physicians Neck and Nehemiah Kothari M echanical low back pain (Primary Dx); Back Center Noman tyler PT Cervical spine pain [address] [facility], [address] [place] [address] [place], [place] [id number] Social History Tobacco Use Types Packs/Day Years [...] out as lesley) Start: 11:22 End: 12:00 (OCC THERAPY ASST Visit # 0 Subjective: States she is [...] Sx <??or = to 1-04/26??(At Eval: 09/23) progressing, 12/17/18 *3. Pt will [...] Cervicalgia documented in this encounter Care Teams Field Secretary Relationship Specialty Start Date End Date Thalia Barron PA-C PCP - General Physician Bolt Machine Operator 10/06/18 documented as of this encounter
--- OUTSIDE RECORDS SUMMARY | 2022-01-25 16:27 | XMS_ITS | Encounter Summary ---
:1955 Author Organization [facility] Address [address], [place] [address] Care Team Providers Name Role Phone Thalia Barron PA-C Primary Care Provider Unavailable Reason for Visit Reason Onset Date Comments ARM PAIN 11/20/2018 LEG PAIN 11/20/2018 BACK PAIN, LOW 11/20/2018 NECK PAIN 11/20/2018 Encounter Details Date Type Department Care Team Description 11/20/2018 Office Visit Physicians Prashanth and Cecilia Calloway, Post l aminectomy syndrome; Back Center Mechanical low back pain; [place] Cervical disc syndrome; [address] [address] Cervical spin al stenosis; Center, [address] Cervical spine pain; [place] [address] Muscular deconditioning [phone] Social History Tobacco Use Types Packs/Day Years [...] Cecilia Calloway MD 11/20/2018, 12:40 PM Thalia Barorn PA-C [address] [place] [address] documented in this encounter Plan of Treatment [...] classified documented in this encounter Care Teams Property Utilization Officer Relationship Specialty Start Date End Date Thalia Barron PA-C PCP - General Physician Elevator Operator Service 10/06/18 documented as of this encounter
--- OUTSIDE RECORDS SUMMARY | 2022-01-25 16:27 | XMS_ITS | Encounter Summary ---
:1955 Author Organization [facility] Address [address] [address] Care Team Providers Name Role Phone Thalia Barron PA-C Primary Care Provider Unavailable Encounter Details Date Type Department Care Team Description 10/21/2018 Episode Changes Physicians Neck and Back Nehemiah Kothari, PT Center [place] [address] [facility] [address] [facility], [address] [place] [address] [place] [address] [phone] Social History Tobacco Use Types Packs/Day Years Used Date Smoking Tobacco: Never Alcohol Use Standard Drinks/Week Comments No 0 (1 standard drink = 0.6 oz pure alcoho l) Recovering alcoholic Sex Assigned at Date Recorded Not on file documented as of this encounter Plan of Treatment Not on filedocumented as of this encounter Visit Diagnoses Not on filedocumented in this encounter Care Teams Fashion Artist Relationship Specialty Start Date End Date Thalia Barron PA-C PCP - General Physician Claims Adjudicator 10/06/18 documented as of this encounter
--- OUTSIDE RECORDS SUMMARY | 2022-01-25 16:27 | XMS_ITS | Encounter Summary ---
:1955 Author Organization [facility] Address [address] [address] Care Team Providers Name Role Phone Thalia [...] LOW BACK PAIN Thalia Barron, [facility] [place] [address] [place] [address] [facility], [address] [place] [address] [place] [address] Phone: Fax: Referral ID Status Reason Start Date Expiration Date Visits Requ ested Visits Authorized [id number] Closed 10/06/2018 01/05/2020 999 999 Encounter Details Date Type Department Care Team Description 11/05/2018 Therapy Physicians Neck and Marimar Pan PTA Mechanical low back pain (Primary Dx); Back Center [facility] [address], Cervical spine pain [address] [facility], [address] [place] [address] [place] [address] [phone] Social History Tobacco Use Types Packs/Day Years [...] as tolerated)Start: 10:32 am End: 11:15 am (DIRECTOR OF ONCOLOGY Visit # 1 Subjective: Patient reports joints [...] 35# 20 hams 35# 20 HEP hook agricultural engineering technician for lats/rows, body mechanics Therapeutic Activities (3 min): Educated pt on body mechanics in the kitchen to prevent twisting at the waist. Patient has had vehicle body maker training before so could replicate turning hips towards the direction of movement and not twisting. Patient Education: Patient was instructed in specific review of patients progress and correlation of strength and function to increase their understanding of the benefits related to completing the [facility] Rehab program Short vehicle body maker review when moving in the kitchen. Patient [...] morning with??Sx < or = to??3-410 ?? Detention Goals (>6 weeks): 1. Patient will be [...] Cervicalgia documented in this encounter Care Teams Business Office Assistant Relationship Specialty Start Date End Date Thalia Barron PA-C PCP - General Physician Gasoline Tester 10/06/18 documented as of this encounter
--- OUTSIDE RECORDS SUMMARY | 2022-01-25 16:27 | XMS_ITS | Encounter Summary ---
:1955 Author Organization [facility] Address [address] [address] Care Team Providers Name Role Phone Thalia Barron PA-C Primary Care Provider Unavailable Reason for Visit Reason Comments BACK PAIN, LOW NECK PAIN Encounter Details Date Type Department Care Team Description 12/07/2018 Telephone Physicians Neck and Maxim, Marimar Cid, DRUG WORKER BACK PAIN, LOW; NECK [place] [address] [facility], PAIN [address] [facility], [facility] [address] [place] [address] [place] [address] [phone] Social History Tobacco Use Types Packs/Day Years Used Date Smoking Tobacco: Never Alcohol Use Standard Drinks/Week Comments No 0 (1 standard drink = 0.6 oz pure alcoho l) Recovering alcoholic Sex Assigned at Date Recorded Not on file documented as of this encounter Plan of Treatment Not on filedocumented as of this encounter Visit Diagnoses Not on filedocumented in this encounter Care Teams Receivable Executive Relationship Specialty Start Date End Date Thalia Barron PA-C PCP - General Physician Pole Climber 10/06/18 documented as of this encounter
--- OUTSIDE RECORDS SUMMARY | 2022-01-25 16:27 | XMS_ITS | Encounter Summary ---
:1955 Author Organization [facility] Address [address], [place] [address] Care Team Providers Name Role Phone Thalia Barron PA-C Primary Care Provider Unavailable Reason for Visit Reason Comments BACK PAIN, LOW Lost HEP access code Encounter Details Date Type Department Care Team Description 10/21/2018 Telephone Physicians Neck and Nehemiah Kothari B ACK PAIN, LOW (Lost Back Center [place] [facility] PT HEP access code) [address] [facility], [address] [facility] [address] [place] [address] [place] [address] [phone] Social History Tobacco Use Types Packs/Day Years [...] on filedocumented in this encounter Care Teams Senior Peoplesoft Developer Relationship Specialty Start Date End Date Thalia Barron PA-C PCP - General Physician Bar Welder 10/06/18 documented as of this encounter
--- OUTSIDE RECORDS SUMMARY | 2022-01-25 16:27 | XMS_ITS | Encounter Summary ---
:1955 Author Organization [facility] Address [address] [address] Care Team Providers Name Role Phone Thalia [...] OF SPINE LOW BACK PAIN Thalia Barron, [facility]hing [facility] Hospital[facility] [place] [address] [address] [facility], [address] [place] [address] [place] [address] Phone: Fax: Referral ID Status Reason Start Date Expiration Date Visits Requ ested Visits Authorized [id number] Closed 10/06/2018 01/05/2020 999 999 Encounter Details Date Type Department Care Team Description 10/23/2018 Therapy Physicians Neck and Nehemiah Kothari M echanical low back pain (Primary Dx); Back Center Noman tyler PT Cervical spine pain [address] [facility], [address] [place] [address] [place] [address] Social History Tobacco Use Types [...] out as lesley) Start: 10:50 End: 11:32 (CERTIFIED OPHTHALMIC MEDICAL TECHNICIAN Visit # 0 Subjective: States she has [...] min with burning Sx < or = to??3-4/10 in her feet 5. Pt will get dressed in the morning with??Sx < or = to??3-4/10 ?? Hourly Sign Language Interpreter Goals (>6 weeks): 1. Patient will be [...] 42 Total treatment time: 42 Nehemiah Kothari, SANDRA 10/23/2018, 11:59 AM documented in this encounter Plan of Treatment Not on filedocumented as of this encounter Visit Diagnoses Diagnosis Mechanical low back pain - Primary Lumbago Cervical spine pain Cervicalgia documented in this encounter Care Teams Demurrage Worker Relationship Specialty Start Date End Date Thalia Barron PA-C PCP - General Physician Director Of Patient Care 10/06/18 documented as of this encounter
--- OUTSIDE RECORDS SUMMARY | 2022-01-25 16:27 | XMS_ITS | Encounter Summary ---
:1955 Author Organization [facility] Address [address] [address] Care Team Providers Name Role Phone Thalia [...] SPINE LOW BACK PAIN Thalia Barron, [facility] [address] [address] [facility], [address] [place] [address] [place] [address] Phone: Fax: Referral ID Status Reason Start Date Expiration Date Visits Requ ested Visits Authorized [id number] Closed 10/06/2018 01/05/2020 999 999 Encounter Details Date Type Department Care Team Description 10/15/2018 Therapy Physicians Neck and Nehemiah Kothari M echanical low back pain (Primary Dx); Back Center Noman tyler PT Cervical spine pain [address] [facility], [address] [place] [address] [place], [place] [id number] Social History Tobacco Use Types Packs/Day Years [...] Oswestry Disability Index: 48% Neck Disability Index: 44.1150449549121% Personal Care: morning routine getting dressed Lifting: [...] days (90 days max for [place] and [place] patients). Short Term Goals (4-6 weeks): *1. [...] with Sx < or = to 3-4/10 Residential Goals (>6 weeks): 1. Patient will [...] Activities to prevent future injury/aggravation Discharge Plan: [place] in strength maintenance home exercise program TODAY'S INTERVENTIONS: Therapeutic Exercise and Therapeutic Activity Nehemiah Kothari, PT 10/15/2018, 1:35 PM 10/15/2018 Visit # 1 Protocol: Neck (acute, disc, stenosis) and Back (acute, disc, adv out as lesley) Start: 10:31End: 11:30 (PEDIATRIC NP Visit # 0 Subjective: see eval Cervical [...] Pt withspecific exercises to perform. Access Code: [email or web address] URL: [email or web address] Date: 10/21/2018 Prepared by: Nehemiah Kothari Exercises [...] with Sx < or = to 3-4/10 Molding Line Assistant Goals (>6 weeks): 1. Patient will be [...] Cervicalgia documented in this encounter Care Teams Route Sales Associate Relationship Specialty Start Date End Date Thalia Barron PA-C PCP - General Physician Metal Stamping Machine Operator 10/06/18 documented as of this encounter
--- OUTSIDE RECORDS SUMMARY | 2022-01-25 16:27 | XMS_ITS | Encounter Summary ---
:1955 Author Organization [facility] Address [address], [place] [address] Care Team Providers Name Role Phone Denise Harris MD Primary Care Provider Encounter Details Date Type Department Care Team Description 07/15/2010 PN Conversion Only CONVERSION CONVERSION Kaylah Harris MD [address] [place], [place] [address] (Wo rk) Social History [...] on filedocumented in this encounter Care Teams Stamp Mounter Relationship Specialty Start Date End Date Denise Harris MD PCP - General 06/17/10 10/05/[address] [place] [address] documented as of this encounter
--- OUTSIDE RECORDS SUMMARY | 2022-01-25 16:27 | XMS_ITS | Encounter Summary ---
:1955 Author Organization Formerly [facility] Address [address], [place] [address] Care Team Providers Name Role Phone Unassigned, Provider Primary Care Provider Unavailable Encounter Details Date Type Department Care Team Description 04/25/2009 - Hospital Encounter Episcopal Jagdish Zaidi MD [address] [facility] [place] [id number] 05/01/2009 [id number] Jagdish Zaidi MD [address] [facility] [place] [id number] [place] [id number] [facility] [place] [address] Social History Tobacco Use Types Packs/Day Years Used Date Smoking Tobacco: Former Alcohol Use Standard Drinks/Week Comments No 0 (1 standard drink = 0.6 oz pure alcoho l) Recovering alcoholic Sex Assigned at Date Recorded Not on file documented as of this encounter Last Filed Vital Signs Vital Sign Reading Time Taken Comments Blood Pressure 118/80 05/01/2009 7:20 AM C: [employer] BUSINESS SUPPORT ASSOCIATE Pulse 102 05/01/2009 7:20 AM BUSINESS SUPPORT ASSOCIATE Temperature 36.7 ??C (98.1 ??F) 05/01/2009 7:20 AM ORAL C: 9 8.1 F BUSINESS SUPPORT ASSOCIATE Respiratory Rate 16 05/01/2009 7:20 AM BUSINESS SUPPORT ASSOCIATE Oxygen Saturation 96% 05/01/2009 7:21 AM BUSINESS SUPPORT ASSOCIATE Inhaled Oxygen Concentration - - Weight - - Height - - Body Mass Index - - documented in this encounter Discharge Summaries Jagdish Zaidi MD - 05/01/2009 12:01 AM CST Discharge Summaries signed by Jagdish Zaidi MD at 05/10/09 1325 Author: Jagdish Zaidi MD Service: (none) Author Type: Physician Filed: 07/07/102011 Note Time: 05/01/09 1605 Status: Signed Plaque Maker: Jagdish Zaidi MD (Physician) NAME: Yaz Santamaria MR#: [id number] ACCT: [id number] AUTHENTICATING CLINICIAN: JAGDISH ZAIDI MD CONFIRM #: [id number] LOC: 1 HOSPITAL DISCHARGE SUMMARY Corrected Copy [...] was immediately fully anticoagulated and transferred to [address] [place] [address] in the cardiovascular unit. There she was [...] negative for any pathology or signs of [place]. She was able to have a bowel [...] ON DISCHARGE/INSTRUCTIONS: Dictated by Pradip Suarez MD MCS:[id number] C: 05/02/09 11:57 CONFIRM #: [id number] NESS SUPPORT ASSOCIATE documented in this encounter Medications at [...] MG OR Take 1 tablet by 0 /2 03/2007 CAPS mouth 4 times daily DULoxetine [...] Apply 1 15 3 04/26/19 10 MYCOLOG-II) 976549-6.1 Applicatorful UNIT/GM-% cream topically 3 times daily. LW Addl Instr:pt applies to left corner of eye and left corner of mouth [place]-3 Fatty Acids ([facility] Take 1 capsule by [...] signed by Jagdish Zaidi MD at 04/25/09 7799 Author: Jagdish Zaidi MD Service: (none) Author Type: Physician Filed: 07/07/102002 Note Time: 04/25/09 0800 Status: Signed Plaque Maker: Jagdish Zaidi MD (Physician) Patient Name: Yaz Santamaria Gender: F Date of : 1955 Age: 53 Admit Type: Inpatient Note Status: Finalized Procedure Date no Time: 04/25/2009 Surgical Staff: Jagdish Zaiid MD, Dave Suarez MD Referring MD: Procedure: [...] condition. Complications: No Immediate Complications. CPT Codes(s): 55781, LT, Arthroplasty, knee, condyle and plateau; medial AND lateral compartments with or without patella resurfacing (total knee arthroplasty) ICD Code(s): 715.16, Osteoarthrosis, localized, primary, involving lower leg CPT 2008 [employer]. All Rights Reserved. No fee schedules, basic units, relative values or related listings are included in CPT. A does not directly or indirectly practice medicine or dispense medical services. A assumes no liability for data contained or not contained herein. CPT is a registered trademark of the [employer]. The codes documented in this report are preliminary and upon ticket sorter review may be revised to meet current compliance requirements. Attending Participation: This operation could not have been safely performed (without compromising the technical results or length of the procedure) without the assistance of a skilled surgical scrub technologist. A surgical scrub technologist was medically necessary for positioning, retraction, and instrumentation. No ortho resident was available for this case. Jagdish Zaidi MD Signed Date: 04/25/2009 5:39 PM Number of Addenda: 0 Note initiated on 04/25/2009 5:21 PM Procedure Date: 04/25/2009 8:00 AM NESS SUPPORT ASSOCIATE documented in this encounter Miscellaneous Notes [...] Date Principal: TOTAL KNEE REPLACEMENT JAGDISH ZAIDI [id number] 81.54 Provider2: Provider3: KOSTA CHARLTON NESS SUPPORT ASSOCIATE documented in this encounter Plan of Treatment Not on filedocumented as of this encounter Procedures Procedure Name Priority Date/Time Associated Comments Diagnosis COMPLETE BLOOD Routine 05/01/2009 6:05 AM Results for this COUNT-W/DIFF BUSINESS SUPPORT ASSOCIATE procedure are i n the results section. INR/PROTIME Routine 05/01/2009 6:05 AM Results f or this BUSINESS SUPPORT ASSOCIATE procedure are i n the results section. LAB TYPE, SCREEN AND Routine 04/30/2009 12:25 Res ults for this CROSSMATCH PM BUSINESS SUPPORT ASSOCIATE procedure are i n the results section. LAB TYPE, SCREEN AND Routine 04/30/2009 10:35 Res ults for this CROSSMATCH AM BUSINESS SUPPORT ASSOCIATE procedure are i n the results section. COMPLETE BLOOD Routine 04/30/2009 8:53 AM Results for this COUNT-W/DIFF BUSINESS SUPPORT ASSOCIATE procedure are i n the results section. BASIC METABOLIC PANEL Routine 04/30/2009 8:53 AM Results for this BUSINESS SUPPORT ASSOCIATE procedure are i n the results section. INR/PROTIME Routine 04/30/2009 8:53 AM Results f or this BUSINESS SUPPORT ASSOCIATE procedure are i n the results section. TROPONIN I Routine 04/29/2009 8:29 PM Results f or this BUSINESS SUPPORT ASSOCIATE procedure are i n the results section. XR CHEST 2 VIEWS Routine 04/29/2009 4:02 PM Resul ts for this BUSINESS SUPPORT ASSOCIATE procedure are i n the results section. HEMOGLOBIN, BLOOD Routine 04/29/2009 9:01 AM Resu lts for this BUSINESS SUPPORT ASSOCIATE procedure are i n the results section. INR/PROTIME Routine 04/29/2009 9:01 AM Results f or this BUSINESS SUPPORT ASSOCIATE procedure are i n the results section. ECG 12 LEAD INPATIENT STAT 04/29/2009 6:03 AM Results for this BUSINESS SUPPORT ASSOCIATE procedure are i n the results section. CREATININE / GFR Routine 04/28/2009 5:27 AM Resul ts for this BUSINESS SUPPORT ASSOCIATE procedure are i n the results section. HEMOGLOBIN, BLOOD Routine 04/28/2009 5:27 AM Resu lts for this BUSINESS SUPPORT ASSOCIATE procedure are i n the results section. ELECTROLYTE PANEL Routine 04/28/2009 5:27 AM Resu lts for this BUSINESS SUPPORT ASSOCIATE procedure are i n the results section. INR/PROTIME Routine 04/28/2009 5:27 AM Results f or this BUSINESS SUPPORT ASSOCIATE procedure are i n the results section. BEDSIDE GLUCOSE Routine 04/27/2009 9:44 PM Result s for this MONITOR POCT BUSINESS SUPPORT ASSOCIATE procedure are i n the results section. BEDSIDE GLUCOSE Routine 04/27/2009 5:34 PM Result s for this MONITOR POCT BUSINESS SUPPORT ASSOCIATE procedure are i n the results section. US VENOUS BILAT LOWER Routine 04/27/2009 12:01 Re sults for this EXTREM DOPPLER PM BUSINESS SUPPORT ASSOCIATE procedure are in the results section. BEDSIDE GLUCOSE Routine 04/27/2009 11:41 Results for this MONITOR POCT AM BUSINESS SUPPORT ASSOCIATE procedure are i n the results section. BEDSIDE GLUCOSE Routine 04/27/2009 8:26 AM Result s for this MONITOR POCT BUSINESS SUPPORT ASSOCIATE procedure are i n the results section. CREATININE / GFR Routine 04/27/2009 5:00 AM Resul ts for this BUSINESS SUPPORT ASSOCIATE procedure are i n the results section. HEMOGLOBIN, BLOOD Routine 04/27/2009 5:00 AM Resu lts for this BUSINESS SUPPORT ASSOCIATE procedure are i n the results section. ELECTROLYTE PANEL Routine 04/27/2009 5:00 AM Resu lts for this BUSINESS SUPPORT ASSOCIATE procedure are i n the results section. INR/PROTIME Routine 04/27/2009 5:00 AM Results f or this BUSINESS SUPPORT ASSOCIATE procedure are i n the results section. BEDSIDE GLUCOSE Routine 04/26/2009 9:16 PM Result s for this MONITOR POCT BUSINESS SUPPORT ASSOCIATE procedure are i n the results section. BEDSIDE GLUCOSE Routine 04/26/2009 7:35 PM Result s for this MONITOR POCT BUSINESS SUPPORT ASSOCIATE procedure are i n the results section. CT ANGIO CHEST W IV STAT 04/26/2009 7:24 PM Re sults for this CONT PE STUDY BUSINESS SUPPORT ASSOCIATE procedure are in the results section. CREATININE / GFR Routine 04/26/2009 6:30 PM Resul ts for this BUSINESS SUPPORT ASSOCIATE procedure are i n the results section. COMPLETE BLOOD Routine 04/26/2009 6:30 PM Results for this COUNT-W/DIFF BUSINESS SUPPORT ASSOCIATE procedure are i n the results section. ELECTROLYTE PANEL Routine 04/26/2009 6:30 PM Resu lts for this BUSINESS SUPPORT ASSOCIATE procedure are i n the results section. BUN Routine 04/26/2009 6:30 PM Results f or this BUSINESS SUPPORT ASSOCIATE procedure are i n the results section. ECG 12 LEAD INPATIENT STAT 04/26/2009 6:27 PM Results for this BUSINESS SUPPORT ASSOCIATE procedure are i n the results section. HEMOGLOBIN, BLOOD Routine 04/26/2009 7:34 AM Resu lts for this BUSINESS SUPPORT ASSOCIATE procedure are i n the results section. INR/PROTIME Routine 04/26/2009 7:34 AM Results f or this BUSINESS SUPPORT ASSOCIATE procedure are i n the results section. COMPLETE BLOOD Routine 04/25/2009 6:40 PM Results for this COUNT-W/DIFF BUSINESS SUPPORT ASSOCIATE procedure are i n the results section. ECG 12 LEAD INPATIENT STAT 04/25/2009 6:11 PM Results for this BUSINESS SUPPORT ASSOCIATE procedure are i n the results section. BEDSIDE GLUCOSE Routine 04/25/2009 5:44 PM Result s for this MONITOR POCT BUSINESS SUPPORT ASSOCIATE procedure are i n the results section. INR/PROTIME Routine 04/25/2009 3:55 PM Results f or this BUSINESS SUPPORT ASSOCIATE procedure are i n the results section. XR KNEE LT AP AND Routine 04/25/2009 10:30 Result s for this LATERAL AM BUSINESS SUPPORT ASSOCIATE procedure are i n the results section. MRSA CULTURE Routine 04/25/2009 6:40 AM Results f or this BUSINESS SUPPORT ASSOCIATE procedure are i n the results section. BEDSIDE GLUCOSE Routine 04/25/2009 6:10 AM Result s for this MONITOR POCT BUSINESS SUPPORT ASSOCIATE procedure are i n the results section. POTASSIUM Routine 04/25/2009 5:40 AM Results f or this BUSINESS SUPPORT ASSOCIATE procedure are i n the results section. documented in this encounter Results (ABNORMAL) INR/Protime (05/01/2009 6:05 AM BUSINESS SUPPORT ASSOCIATE) [employer] Method Time Signature Prothrombin 25.5 (H) 12.6 [...] valves in the aortic position , acute MN, valvular heart disease and atrial fibril lation. Mechanical prosthetic valves, (high risk ). ? INR 2.5-3.5 Prevention of recurrent myocardial infar ct. These recommended ranges serve as guidel mk. Adjustment outside these ranges may be clinically indicated. Specimen (Source) Anatomical Collection Method Collection Time Re ceived Time Location / / Volume Laterality 05/01/2009 6:05 AM BUSINESS SUPPORT ASSOCIATE Pradip Suarez MD LAB_1 Performing Organization Address City/State/ZIP Code Phon e Number HP CONVERSION (ABNORMAL) Hemogram/Plts/Diff (05/01/2009 6:05 AM BUSINESS SUPPORT ASSOCIATE) [employer] Method Time Signature White Blood Cell 8.0 [...] - HP CONVERSION Hemoglobin Conc 36.5 gm/dL [place] RDW 14.4 11.0 - HP CONVERSION 15.0 [...] / / Volume Laterality 05/01/2009 6:05 AM BUSINESS SUPPORT ASSOCIATE Leodan Bergeron MD LAB_1 Performing Organization Address City/State/RUST Code Phon e Number HP CONVERSION LAB TYPE, SCREEN AND CROSSMATCH (04/30/2009 12:25 PM BUSINESS SUPPORT ASSOCIATE) P athologist Signature BB BLOOD TYPE O POS No normal HP CONVERSION (BLOOD GROUP & range RH) Blood Type # [id number] HP CONVERSION Units Requested N/O BB NEG No normal HP CONVERSION ANTIBODY range SCREEN Specimen (Source) Anatomical Collection Method Collection Time Re ceived Time Location / / Volume Laterality 04/30/2009 12:25 PM BUSINESS SUPPORT ASSOCIATE Jagdish Zaidi MD LAB_1 Performing Organization Address City/State/ZIP Code Phon e Number HP CONVERSION LAB TYPE, SCREEN AND CROSSMATCH (04/30/2009 10:35 AM BUSINESS SUPPORT ASSOCIATE) [facility] gist Method Time Signature BB BLOOD [...] / / Volume Laterality 04/30/2009 10:35 AM BUSINESS SUPPORT ASSOCIATE Leodan Bergeron MD LAB_1 Performing Organization Address [facility] Phon e Number HP CONVERSION (ABNORMAL) INR/Protime (04/30/2009 8:53 AM BUSINESS SUPPORT ASSOCIATE) [facility] [employer] Method Time Signature Prothrombin 24.8 (H) 12.6 [...] valves in the aortic position , acute MN, valvular heart disease and atrial fibril lation. Mechanical prosthetic valves, (high risk ). ? INR 2.5-3.5 Prevention of recurrent myocardial infar ct. These recommended ranges serve as guidel mk. Adjustment outside these ranges may be clinically indicated. Specimen (Source) Anatomical Collection Method Collection Time Re ceived Time Location / / Volume Laterality 04/30/2009 8:53 AM BUSINESS SUPPORT ASSOCIATE Pradip Suarez MD LAB_1 Performing Organization Address [facility] Phon e Number HP CONVERSION (ABNORMAL) Basic Metabolic Panel (04/30/2009 8:53 AM BUSINESS SUPPORT ASSOCIATE) [facility] [employer] Method Time Signature Creatinine Serum 0.7 0.4 [...] GFR >60 >60 HP CONVERSION Am Comment: -[employer] and Wec-Swldfqc-Vmoksti n reference range units: mL/min/1.73m2 Normal>60, moderate decrease 30 - 59, se meli decrease 15 - 29, renal failure <15 mL/min/1.73 m2 NOTE: Choose the eGFR result above appro priate for the race of the patient. Est GFR Non-Afr Am >60 >60 HP CONVERSI ON Specimen (Source) Anatomical Collection Method Collection Time Re ceived Time Location / / Volume Laterality 04/30/2009 8:53 AM BUSINESS SUPPORT ASSOCIATE Leodan Bergeron MD LAB_1 Performing Organization Address City/State/ZIP Code Phon e Number HP CONVERSION (ABNORMAL) Hemogram/Plts/Diff (04/30/2009 8:53 AM BUSINESS SUPPORT ASSOCIATE) [facility] gist Method Time Signature White Blood [...] - HP CONVERSION Hemoglobin Conc 36.5 gm/dL [place] RDW 15.0 11.0 - HP CONVERSION 15.0 [...] / / Volume Laterality 04/30/2009 8:53 AM BUSINESS SUPPORT ASSOCIATE Leodan Bergeron MD LAB_1 Performing Organization Address City/State/ZIP Code Phon e Number HP CONVERSION Troponin I (04/29/2009 8:29 PM BUSINESS SUPPORT ASSOCIATE) athologist Signature TROPONIN I 0.13 0.00 - 0.30 HP CONVERSION ng/mL Specimen (Source) Anatomical Collection Method Collection Time Re ceived Time Location / / Volume Laterality 04/29/2009 8:29 PM BUSINESS SUPPORT ASSOCIATE Leodan Bergeron MD LAB_1 Performing Organization Address City/State/ZIP Code Phon e Number HP CONVERSION XR Chest 2 Views (04/29/2009 4:02 PM BUSINESS SUPPORT ASSOCIATE) Anatomical Region Laterality Modality Chest, Lung Other Specimen (Source) Anatomical Location Collection Method / Collectio n Time Received Time / Laterality Volume Impressions 04/29/2009 4:02 PM BUSINESS SUPPORT ASSOCIATE : Cardiac silhouette is upper normal in size. ??Pulmonary vasculature is within normal limits. ??T here is an area of diskoid atelectasis in the right midlung and min imal atelectasis or infiltrate in the left lower lobe. Lungs and pleural spaces are otherwise clear. Dictating MAINE GALLARDO Radiologist Narrative 04/29/2009 4:02 PM BUSINESS SUPPORT ASSOCIATE COMPARISON: None. Procedure Note [place] [...] RAD GD (ABNORMAL) INR/Protime (04/29/2009 9:01 AM BUSINESS SUPPORT ASSOCIATE) [facility] Method Time Signature Prothrombin 27.2 (H) 12.6 [...] valves in the aortic position , acute MN, valvular heart disease and atrial fibril lation. Mechanical prosthetic valves, (high risk ). ? INR 2.5-3.5 Prevention of recurrent myocardial infar ct. These recommended ranges serve as guidel mk. Adjustment outside these ranges may be clinically indicated. Specimen (Source) Anatomical Collection Method Collection Time Re ceived Time Location / / Volume Laterality 04/29/2009 9:01 AM BUSINESS SUPPORT ASSOCIATE Pradip Suarez MD LAB_1 Performing Organization Address [facility] Phon e Number HP CONVERSION (ABNORMAL) Hemoglobin, Blood (04/29/2009 9:01 AM BUSINESS SUPPORT ASSOCIATE) P athologist Signature Hemoglobin 9.1 (L) 11.8 - 15.5 HP CONVERSION gm/dL Specimen (Source) Anatomical Collection Method Collection Time Re ceived Time Location / / Volume Laterality 04/29/2009 9:01 AM BUSINESS SUPPORT ASSOCIATE Rosalina Saez MD LAB_1 Performing Organization Address [facility] Phon e Number HP CONVERSION ECG 12 Lead Inpatient (04/29/2009 6:03 AM BUSINESS SUPPORT ASSOCIATE) Specimen (Source) Anatomical Collection Method Collection Time Re ceived Time Location / / Volume Laterality 04/29/2009 6:03 AM BUSINESS SUPPORT ASSOCIATE Narrative HP CONVERSION - 04/29/2009 6:03 AM BUSINESS SUPPORT ASSOCIATE Sinus tachycardia Otherwise normal ECG When compared with ECG of 26-APR-2009 1 8:27, No significant change was found Agustin Guzman DO PN ECG ORDERABLES Performing Organization Address [facility] Phon e Number HP CONVERSION (ABNORMAL) INR/Protime (04/28/2009 5:27 AM BUSINESS SUPPORT ASSOCIATE) Patholo gist Method Time Signature Prothrombin [...] valves in the aortic position , acute MN, valvular heart disease and atrial fibril lation. Mechanical prosthetic valves, (high risk ). ? INR 2.5-3.5 Prevention of recurrent myocardial infar ct. These recommended ranges serve as guidel mk. Adjustment outside these ranges may be clinically indicated. Specimen (Source) Anatomical Collection Method Collection Time Re ceived Time Location / / Volume Laterality 04/28/2009 5:27 AM BUSINESS SUPPORT ASSOCIATE Pradip Suarez MD LAB_1 Performing Organization Address [facility] Phon e Number HP CONVERSION Creatinine / GFR (04/28/2009 5:27 AM BUSINESS SUPPORT ASSOCIATE) P athologist Signature Creatinine 0.7 0.4 - 1.3 HP CONVERSION Serum mg/dL Est GFR >60 >60 HP CONVERSION Am Comment: -[employer] and Sut-Wnrykiy-Xvmrctf n reference range units: mL/min/1.73m2 Normal>60, moderate decrease 30 - 59, se meli decrease 15 - 29, renal failure <15 mL/min/1.73 m2 NOTE: Choose the eGFR result above appro priate for the race of the patient. Est GFR Non-Afr Am >60 >60 HP CONVERSI ON Specimen (Source) Anatomical Collection Method Collection Time Re ceived Time Location / / Volume Laterality 04/28/2009 5:27 AM BUSINESS SUPPORT ASSOCIATE Rosalina Saez MD LAB_1 Performing Organization Address [facility] Phon e Number HP CONVERSION Electrolyte Panel (04/28/2009 5:27 AM BUSINESS SUPPORT ASSOCIATE) P athologist Signature Sodium 140 137 - 147 HP CONVERSION mEq/L Potassium 4.1 3.5 - 5.2 HP CONVERSION mEq/L Chloride 106 98 - 110 HP CONVERSION mEq/L Bicarbonate 33 23 - 33 HP CONVERSION mmol/L Specimen (Source) Anatomical Collection Method Collection Time Re ceived Time Location / / Volume Laterality 04/28/2009 5:27 AM BUSINESS SUPPORT ASSOCIATE Rosalina Saez MD LAB_1 Performing Organization Address [facility] Phon e Number HP CONVERSION (ABNORMAL) Hemoglobin, Blood (04/28/2009 5:27 AM BUSINESS SUPPORT ASSOCIATE) P athologist Signature Hemoglobin 9.4 (L) 11.8 - 15.5 HP CONVERSION gm/dL Specimen (Source) Anatomical Collection Method Collection Time Re ceived Time Location / / Volume Laterality 04/28/2009 5:27 AM BUSINESS SUPPORT ASSOCIATE Rosalina Saez MD LAB_1 Performing Organization Address [facility] Phon e Number HP CONVERSION BEDSIDE GLUCOSE MONITOR (04/27/2009 9:44 PM BUSINESS SUPPORT ASSOCIATE) P athologist Signature Bedside Blood 192 mg/dL HP CONVERSION Glucose Test Blood Glucose * No normal HP CONVERSION Screen, range Comment 1 Blood Glucose * No normal HP CONVERSION Screen, range Comment 2 Blood Glucose * No normal HP CONVERSION Screen, range Comment 3 Specimen (Source) Anatomical Collection Method Collection Time Re ceived Time Location / / Volume Laterality 04/27/2009 9:44 PM BUSINESS SUPPORT ASSOCIATE Jagdish Zaidi MD LAB_1 Performing Organization Address [facility] Phon e Number HP CONVERSION BEDSIDE GLUCOSE MONITOR (04/27/2009 5:34 PM BUSINESS SUPPORT ASSOCIATE) P athologist Signature Bedside Blood 144 mg/dL HP CONVERSION Glucose Test Blood Glucose * No normal HP CONVERSION Screen, range Comment 1 Blood Glucose * No normal HP CONVERSION Screen, range Comment 2 Blood Glucose * No normal HP CONVERSION Screen, range Comment 3 Specimen (Source) Anatomical Collection Method Collection Time Re ceived Time Location / / Volume Laterality 04/27/2009 5:34 PM BUSINESS SUPPORT ASSOCIATE Jagdish Zaidi MD LAB_1 Performing Organization Address [facility] Phon e Number HP CONVERSION US Lower Extremity Bilat Venous Doppler (04/27/2009 12:01 PM BUSINESS SUPPORT ASSOCIATE) Anatomical Region Laterality Modality Vascular, Leg Other Specimen (Source) Anatomical Location Collection Method / Collectio n Time Received Time / Laterality Volume Impressions 04/27/2009 12:01 PM BUSINESS SUPPORT ASSOCIATE : ??Negative bilateral lower extremity venous duplex ultrasound with no evidence of acute martina p venous thrombosis. ??Small calf vein thrombosis cannot be completel y excluded by this technique. Dictating GRAYSON SPARROW MD Narrative 04/27/2009 12:01 PM BUSINESS SUPPORT ASSOCIATE CLINICAL HISTORY: ?? PE, looking for [...] Dictating GRAYSON SPARROW MD Rosalina Saez MD [facility] BEDSIDE GLUCOSE MONITOR (04/27/2009 11:41 AM BUSINESS SUPPORT ASSOCIATE) athologist Signature Bedside Blood 165 mg/dL HP CONVERSION Glucose Test Blood Glucose * No normal HP CONVERSION Screen, range Comment 1 Blood Glucose * No normal HP CONVERSION Screen, range Comment 2 Blood Glucose * No normal HP CONVERSION Screen, range Comment 3 Specimen (Source) Anatomical Collection Method Collection Time Re ceived Time Location / / Volume Laterality 04/27/2009 11:41 AM BUSINESS SUPPORT ASSOCIATE Jagdish Zaidi MD LAB_1 Performing Organization Address City/State/ZIP Code Phon e Number HP CONVERSION BEDSIDE GLUCOSE MONITOR (04/27/2009 8:26 AM BUSINESS SUPPORT ASSOCIATE) athologist Signature Bedside Blood 170 mg/dL HP CONVERSION Glucose Test Blood Glucose * No normal HP CONVERSION Screen, range Comment 1 Blood Glucose * No normal HP CONVERSION Screen, range Comment 2 Blood Glucose * No normal HP CONVERSION Screen, range Comment 3 Specimen (Source) Anatomical Collection Method Collection Time Re ceived Time Location / / Volume Laterality 04/27/2009 8:26 AM BUSINESS SUPPORT ASSOCIATE Jagdish Zaidi MD LAB_1 Performing Organization Address City/State/ZIP Code Phon e Number HP CONVERSION (ABNORMAL) INR/Protime (04/27/2009 5:00 AM BUSINESS SUPPORT ASSOCIATE) [facility] gist Method Time Signature Prothrombin 21.2 [...] valves in the aortic position , acute MN, valvular heart disease and atrial fibril lation. Mechanical prosthetic valves, (high risk ). ? INR 2.5-3.5 Prevention of recurrent myocardial infar ct. These recommended ranges serve as guidel mk. Adjustment outside these ranges may be clinically indicated. Specimen (Source) Anatomical Collection Method Collection Time Re ceived Time Location / / Volume Laterality 04/27/2009 5:00 AM BUSINESS SUPPORT ASSOCIATE Pradip Suarez MD LAB_1 Performing Organization Address City/[facility]/ZIP Code Phon e Number HP CONVERSION Creatinine / GFR (04/27/2009 5:00 AM BUSINESS SUPPORT ASSOCIATE) athologist Signature Creatinine 0.7 0.4 - 1.3 HP CONVERSION Serum mg/dL Est GFR >60 >60 HP CONVERSION Am Comment: -Qatari and Iam-Ffayrzl-Tyhweav n reference range units: mL/min/1.73m2 Normal>60, moderate decrease 30 - 59, se meli decrease 15 - 29, renal failure <15 mL/min/1.73 m2 NOTE: Choose the eGFR result above appro priate for the race of the patient. Est GFR Non-Afr Am >60 >60 HP CONVERSI ON Specimen (Source) Anatomical Collection Method Collection Time Re ceived Time Location / / Volume Laterality 04/27/2009 5:00 AM BUSINESS SUPPORT ASSOCIATE Rosalina Saez MD LAB_1 Performing Organization Address City/State/ZIP Code Phon e Number HP CONVERSION (ABNORMAL) Electrolyte Panel (04/27/2009 5:00 AM BUSINESS SUPPORT ASSOCIATE) athologist Signature Sodium 143 137 - 147 HP CONVERSION mEq/L Potassium 4.1 3.5 - 5.2 HP CONVERSION mEq/L Chloride 112 (H) 98 - 110 HP CONVERSION mEq/L Bicarbonate 30 23 - 33 HP CONVERSION mmol/L Specimen (Source) Anatomical Collection Method Collection Time Re ceived Time Location / / Volume Laterality 04/27/2009 5:00 AM BUSINESS SUPPORT ASSOCIATE Rosalina Saez MD LAB_1 Performing Organization Address [facility] Phon e Number HP CONVERSION (ABNORMAL) Hemoglobin, Blood (04/27/2009 5:00 AM BUSINESS SUPPORT ASSOCIATE) athologist Signature Hemoglobin 9.9 (L) 11.8 - 15.5 HP CONVERSION gm/dL Specimen (Source) Anatomical Collection Method Collection Time Re ceived Time Location / / Volume Laterality 04/27/2009 5:00 AM BUSINESS SUPPORT ASSOCIATE Pradip Suarez MD LAB_1 Performing Organization Address [facility] Phon e Number HP CONVERSION BEDSIDE GLUCOSE MONITOR (04/26/2009 9:16 PM BUSINESS SUPPORT ASSOCIATE) athologist Signature Bedside Blood 212 mg/dL HP CONVERSION Glucose Test Blood Glucose * No normal HP CONVERSION Screen, range Comment 1 Blood Glucose * No normal HP CONVERSION Screen, range Comment 2 Blood Glucose * No normal HP CONVERSION Screen, range Comment 3 Specimen (Source) Anatomical Collection Method Collection Time Re ceived Time Location / / Volume Laterality 04/26/2009 9:16 PM BUSINESS SUPPORT ASSOCIATE Jagdish Zaidi MD LAB_1 Performing Organization Address [facility] Phon e Number HP CONVERSION BEDSIDE GLUCOSE MONITOR (04/26/2009 7:35 PM BUSINESS SUPPORT ASSOCIATE) athologist Signature Bedside Blood 152 mg/dL HP CONVERSION Glucose Test Blood Glucose * No normal HP CONVERSION Screen, range Comment 1 Blood Glucose * No normal HP CONVERSION Screen, range Comment 2 Blood Glucose * No normal HP CONVERSION Screen, range Comment 3 Specimen (Source) Anatomical Collection Method Collection Time Re ceived Time Location / / Volume Laterality 04/26/2009 7:35 PM BUSINESS SUPPORT ASSOCIATE Jagdish Zaidi MD LAB_1 Performing Organization Address [facility] Phon e Number HP CONVERSION CT Angio Chest W IV Cont PE Study (04/26/2009 7:24 PM BUSINESS SUPPORT ASSOCIATE) Anatomical Region Laterality Modality Chest, Lung, Vascular Other Specimen (Source) Anatomical Location Collection Method / Collectio n Time Received Time / Laterality Volume Impressions 04/26/2009 7:24 PM BUSINESS SUPPORT ASSOCIATE : ??Multiple bilateral pulmonary emboli. ??Critical results called to AGUSTIN GUZMAN at 7:35 p.m. on 04/26/2009. Dictating CONNOR HERNDON RADIOLOGIST Narrative 04/26/2009 7:24 PM BUSINESS SUPPORT ASSOCIATE TECHNIQUE: ??CT of the chest with [...] DO RAD CT BUN (04/26/2009 6:30 PM BUSINESS SUPPORT ASSOCIATE) athologist Signature Blood Urea 9 5 - 26 HP CONVERSION Nitrogen mg/dL Specimen (Source) Anatomical Collection Method Collection Time Re ceived Time Location / / Volume Laterality 04/26/2009 6:30 PM BUSINESS SUPPORT ASSOCIATE Agustin Guzman DO LAB_1 Performing Organization Address City/State/ZIP Code Phon e Number HP CONVERSION Creatinine / GFR (04/26/2009 6:30 PM BUSINESS SUPPORT ASSOCIATE) athologist Signature Creatinine 0.8 0.4 - 1.3 HP CONVERSION Serum mg/dL Est GFR >60 >60 HP CONVERSION Am Comment: -Qatari and Kao-Uevcond-Lnqczht n reference range units: mL/min/1.73m2 Normal>60, moderate decrease 30 - 59, se meli decrease 15 - 29, renal failure <15 mL/min/1.73 m2 NOTE: Choose the eGFR result above appro priate for the race of the patient. Est GFR Non-Afr Am >60 >60 HP CONVERSI ON Specimen (Source) Anatomical Collection Method Collection Time Re ceived Time Location / / Volume Laterality 04/26/2009 6:30 PM BUSINESS SUPPORT ASSOCIATE Agustin Guzman DO LAB_1 Performing Organization Address City/State/ZIP Code Phon e Number HP CONVERSION (ABNORMAL) Hemogram/Plts/Diff (04/26/2009 6:30 PM BUSINESS SUPPORT ASSOCIATE) [facility] gist Method Time Signature White Blood [...] - HP CONVERSION Hemoglobin Conc 36.5 gm/dL [place] RDW 14.7 11.0 - HP CONVERSION 15.0 [...] / / Volume Laterality 04/26/2009 6:30 PM BUSINESS SUPPORT ASSOCIATE Agustin A Esala DO LAB_1 Performing Organization Address City/[facility]/ZIP Code Phon e Number HP CONVERSION Electrolyte Panel (04/26/2009 6:30 PM BUSINESS SUPPORT ASSOCIATE) P athologist Signature Sodium 143 137 - 147 HP CONVERSION mEq/L Potassium 3.7 3.5 - 5.2 HP CONVERSION mEq/L Chloride 107 98 - 110 HP CONVERSION mEq/L Bicarbonate 26 23 - 33 HP CONVERSION mmol/L Specimen (Source) Anatomical Collection Method Collection Time Re ceived Time Location / / Volume Laterality 04/26/2009 6:30 PM BUSINESS SUPPORT ASSOCIATE Agustin Guzman DO LAB_1 Performing Organization Address [facility]/ZIP Code Phon e Number HP CONVERSION ECG 12 Lead Inpatient (04/26/2009 6:27 PM BUSINESS SUPPORT ASSOCIATE) Specimen (Source) Anatomical Collection Method Collection Time Re ceived Time Location / / Volume Laterality 04/26/2009 6:27 PM BUSINESS SUPPORT ASSOCIATE Narrative HP CONVERSION - 04/26/2009 6:27 PM BUSINESS SUPPORT ASSOCIATE Normal sinus rhythm Normal ECG When compared with ECG of 25-APR-2009 1 8:11, No significant change was found Required Not PN ECG ORDERABLES Performing Organization Address [facility]/ZIP Code Phon e Number HP CONVERSION (ABNORMAL) INR/Protime (04/26/2009 7:34 AM BUSINESS SUPPORT ASSOCIATE) Patholo gist Method Time Signature Prothrombin [...] valves in the aortic position , acute [place], valvular heart disease and atrial fibril lation. Mechanical prosthetic valves, (high risk ). ? INR 2.5-3.5 Prevention of recurrent myocardial infar ct. These recommended ranges serve as guidel mk. Adjustment outside these ranges may be clinically indicated. Specimen (Source) Anatomical Collection Method Collection Time Re ceived Time Location / / Volume Laterality 04/26/2009 7:34 AM BUSINESS SUPPORT ASSOCIATE Pradip Suarez MD LAB_1 Performing Organization Address City/State/ZIP Code Phon e Number HP CONVERSION (ABNORMAL) Hemoglobin, Blood (04/26/2009 7:34 AM BUSINESS SUPPORT ASSOCIATE) P athologist Signature Hemoglobin 10.2 (L) 11.8 - 15.5 HP CONVERSION gm/dL Specimen (Source) Anatomical Collection Method Collection Time Re ceived Time Location / / Volume Laterality 04/26/2009 7:34 AM BUSINESS SUPPORT ASSOCIATE Pradip Suarez MD LAB_1 Performing Organization Address City/State/ZIP Code Phon e Number HP CONVERSION (ABNORMAL) Hemogram/Plts/Diff (04/25/2009 6:40 PM BUSINESS SUPPORT ASSOCIATE) Patholo gist Method Time Signature White [...] - HP CONVERSION Hemoglobin Conc 36.5 gm/dL [place] RDW 14.7 11.0 - HP CONVERSION 15.0 [...] / / Volume Laterality 04/25/2009 6:40 PM BUSINESS SUPPORT ASSOCIATE Maday Burks MD LAB_1 Performing Organization Address [facility] Phon e Number HP CONVERSION ECG 12 Lead Inpatient (04/25/2009 6:11 PM BUSINESS SUPPORT ASSOCIATE) Specimen (Source) Anatomical Collection Method Collection Time Re ceived Time Location / / Volume Laterality 04/25/2009 6:11 PM BUSINESS SUPPORT ASSOCIATE Narrative HP CONVERSION - 04/25/2009 6:11 PM BUSINESS SUPPORT ASSOCIATE Normal sinus rhythm Normal ECG No previous ECGs available Maday Burks MD PN ECG ORDERABLES Performing Organization Address [facility] Phon e Number HP CONVERSION BEDSIDE GLUCOSE MONITOR (04/25/2009 5:44 PM BUSINESS SUPPORT ASSOCIATE) P athologist Signature Bedside Blood 170 mg/dL HP CONVERSION Glucose Test Blood Glucose * No normal HP CONVERSION Screen, range Comment 1 Blood Glucose * No normal HP CONVERSION Screen, range Comment 2 Blood Glucose * No normal HP CONVERSION Screen, range Comment 3 Specimen (Source) Anatomical Collection Method Collection Time Re ceived Time Location / / Volume Laterality 04/25/2009 5:44 PM BUSINESS SUPPORT ASSOCIATE Jagdish Zaidi MD LAB_1 Performing Organization Address [facility] Phon e Number HP CONVERSION INR/Protime (04/25/2009 3:55 PM BUSINESS SUPPORT ASSOCIATE) Analysis Performed At Patho logist Time [...] valves in the aortic position , acute [place], valvular heart disease and atrial fibril lation. Mechanical prosthetic valves, (high risk ). ? INR 2.5-3.5 Prevention of recurrent myocardial infar ct. These recommended ranges serve as guidel mk. Adjustment outside these ranges may be clinically indicated. Specimen (Source) Anatomical Collection Method Collection Time Re ceived Time Location / / Volume Laterality 04/25/2009 3:55 PM BUSINESS SUPPORT ASSOCIATE Pradip Suarez MD LAB_1 Performing Organization Address City/State/ZIP Code Phon e Number HP CONVERSION XR Knee Lt AP And Lateral (04/25/2009 10:30 AM BUSINESS SUPPORT ASSOCIATE) Anatomical Region Laterality Modality Lower Extremity, Knee Other Specimen (Source) Anatomical Location Collection Method / Collectio n Time Received Time / Laterality Volume Narrative 04/25/2009 10:30 AM BUSINESS SUPPORT ASSOCIATE COMPARISON: 07/06/2008 FINDINGS: Left knee 2 [...] RAD GD MRSA Culture (04/25/2009 6:40 AM BUSINESS SUPPORT ASSOCIATE) Analysis Performed At [facility] Time Signature Culture Mrsa SEE TEXT HP CONVERSION Screen Comment: Patient: YAZ SANTAMARIA Culture, MRSA Screen ?Collected: ??[id number] Source: JULES ? Processed: ??[id number] ??[id number] ? JULES Final Report ------ ?[id number] ??[id number] No Methicillin resistant Staph aureus is olated. Specimen (Source) Anatomical Collection Method Collection Time Re ceived Time Location / / Volume Laterality 04/25/2009 6:40 AM BUSINESS SUPPORT ASSOCIATE Shanice Boyd MD LAB_1 Performing Organization Address City/[facility] Phon e Number HP CONVERSION BEDSIDE GLUCOSE MONITOR (04/25/2009 6:10 AM BUSINESS SUPPORT ASSOCIATE) P athologist Signature Bedside Blood 118 mg/dL HP CONVERSION Glucose Test Blood Glucose * No normal HP CONVERSION Screen, range Comment 1 Blood Glucose * No normal HP CONVERSION Screen, range Comment 2 Blood Glucose * No normal HP CONVERSION Screen, range Comment 3 Specimen (Source) Anatomical Collection Method Collection Time Re ceived Time Location / / Volume Laterality 04/25/2009 6:10 AM BUSINESS SUPPORT ASSOCIATE Jagdish Zaidi MD LAB_1 Performing Organization Address City/[facility] Phon e Number HP CONVERSION Potassium (04/25/2009 5:40 AM BUSINESS SUPPORT ASSOCIATE) P athologist Signature Potassium 4.2 3.5 - 5.2 HP CONVERSION mEq/L Specimen (Source) Anatomical Collection Method Collection Time Re ceived Time Location / / Volume Laterality 04/25/2009 5:40 AM BUSINESS SUPPORT ASSOCIATE Jagdish Zaidi MD LAB_1 Performing Organization Address [facility] Phon e Number HP CONVERSION documented in this encounter Visit Diagnoses Not on filedocumented in this encounter Care Teams On Awake Counselor Relationship Specialty Start Date End Date Unassigned, Provider PCP - General 03/27/00 06/16/10 [address] [place] [address] documented as of this encounter
--- OUTSIDE RECORDS SUMMARY | 2022-01-25 16:27 | XMS_ITS | Encounter Summary ---
:1955 [facility] Address [address], [place] [address] Care Team Providers Name Role Phone Thalia Barron PA-C Primary Care Provider Unavailable Reason for Visit Reason Comments No Show Encounter Details Date Type Department Care Team Description 12/04/2018 Telephone Physicians Neck and Back Sherin Rsamussen, PT No Show [facility] [id number] [place] [address] [place] [address] [address] [place] [id number] [phone] Social History Tobacco Use Types Packs/Day Years [...] on filedocumented in this encounter Care Teams Program Clinician Relationship Specialty Start Date End Date Thalia Barron PA-C PCP - General Physician Field Services Director 10/06/18 documented as of this encounter
--- OUTSIDE RECORDS SUMMARY | 2022-01-25 16:27 | XMS_ITS | Encounter Summary ---
:1955 Author Organization [facility] Address [address] [place] [address] Care Team Providers Name Role Phone Thalia [...] OF SPINE LOW BACK PAIN Thalia Barron, [facility] RODRIGO [address] [facility], [address] [place] [address] [place] [address] Phone: Fax: Referral ID Status Reason Start Date Expiration Date Visits Requ ested Visits Authorized [id number] Closed 10/06/2018 01/05/[phone] Encounter Details Date Type Department Care Team Description 12/22/2018 Therapy Physicians Neck and Bubba Kwong, [facility] hanical low back pain (Primary Dx); Back Center [facility] jayson CAVALRY SCOUT Cervical spine pain [address] [facility], [address] [facility] , [address] [place] [address] [place] [address] [phone] (Wo rk) Social History Tobacco Use Types [...] out as lesley) Start: 1114a End: 1202p (CAVALRY SCOUT Visit # 1 Subjective: Pt reports Neck [...] 20 Right Rot Kevin RPE some R mosque pain Objective Tests & Measures: Tests performed [...] Set 1 Ext Kevin RPE 5 self [id number] Set 2 Ext % Max - Set [...] of the benefits related to completing the [facility] Rehab program Assessment: Yaz Multani tolerated treatment ok, right mosque pressure and nerve per pt bothered with [...] over the last couple days 12/17/18 ?? Plater Supervisor Goals (>6 weeks): 1. Patient will be [...] Cervicalgia documented in this encounter Care Teams Zumba Instructor Relationship Specialty Start Date End Date Thalia Barron PA-C PCP - General Physician Air Analyst 10/06/18 documented as of this encounter
--- OUTSIDE RECORDS SUMMARY | 2022-01-25 16:27 | XMS_ITS | Encounter Summary ---
:1955 Author Organization [facility] Address [address] [place] [address] Care Team Providers Name Role Phone Thalia Barron PA-C Primary Care Provider Unavailable Reason for Visit Reason Comments NECK PAIN BACK PAIN Consult/Transfer Care (Routine) - Closed Specialty Diagnoses / Procedures Referred By Contact Refer red To Contact Physical Therapy Diagnoses Other cervical disc degeneration, unspecified cervical region (HRC) Spinal stenosis, cervical region CERV PAIN STENOSIS OF SPINE LOW BACK PAIN Thalia Barron, [facility] Hospital[facility] [address] [address] [facility], [address] [place] [address] [place] [address] Phone: Fax: Referral ID Status Reason Start Date Expiration Date Visits Requ ested Visits Authorized [id number] Closed 10/06/2018 01/05/[phone] Encounter Details Date Type Department Care Team Description 11/02/2018 Therapy Physicians Neck and Sherin Nguyễn, chanical low back pain (Primary Dx); [facility] Cervical spine pain [address] [facility], [address] [place] [address] [place] [address] [phone] Social History Tobacco Use Types Packs/Day Years [...] lesley)?? Start: 10:52 am End: 11:38 am (VIBRATION ENGINEER Visit # 0 Subjective: Patient states she feels beat up today - reports, I just got back from [place] played hard and my body feels [...] 60%. C-Ext 60%. Tests performed today (see reviewflowpost [facility] for score and outcomes): : None Performed [...] 20 Other Lats and Rows: Used B [place]. Abs: Small Block. Quads with Large Block [...] morning with??Sx < or = to??3-4/10 ?? Dish Machine Operator Goals (>6 weeks): 1. Patient will [...] Cervicalgia documented in this encounter Care Teams Lath Tier Relationship Specialty Start Date End Date Thalia Barron PA-C PCP - General Physician Fleet Salesperson 10/06/18 documented as of this encounter
--- OUTSIDE RECORDS SUMMARY | 2022-01-25 16:27 | XMS_ITS | Encounter Summary ---
:1955 Author Organization Replaced by [facility] Address [address], [place] [address] Care Team Providers Name Role Phone Thalia [...] OF SPINE LOW BACK PAIN Thalia Barron, PnTenet [facility]. LouisMadison PA-C [address] [address] [facility], [address] [place] [address] [place] [address] Phone: Fax: Referral ID Status Reason Start Date Expiration Date Visits Requ ested Visits Authorized [id number] Closed 10/06/2018 01/05/[phone] Encounter Details Date Type Department Care Team Description 12/10/2018 Therapy Physicians Neck and Nehemiah Kothari M echanical low back pain (Primary Dx); Back Center Noman tyler PT Cervical spine pain [address] [facility], [address] [place] [address] [place] [address] Social History Tobacco Use Types [...] out as lesley) Start: 10:30 End: 11:15 (PACK ROOM OPERATOR Visit # 0 Subjective: States two Christians [...] rolling, supine to sit etc.)??with moderate Sx 3-06/24 Not met, can only sleep on her back. 12/01/18 4. Pt will walk (with walker) ??>3 min with burning Sx <??or = to??3-4/10 in her feet Not met 12/01/18 5. Pt will get dressed in the morning with??Sx < or = to??3-4/10 ?? Engineering Secretary Goals (>6 weeks): 1. Patient will be [...] Cervicalgia documented in this encounter Care Teams Cleaner And Preparer Relationship Specialty Start Date End Date Thalia Barron PA-C PCP - General Physician Creative Intern 10/06/18 documented as of this encounter
--- OUTSIDE RECORDS SUMMARY | 2022-01-25 16:27 | XMS_ITS | Encounter Summary ---
:1955 Author Organization [facility] Address [address], [place] [address] Care Team Providers Name Role Phone Thalia Barron PA-C Primary Care Provider Unavailable Reason for Visit Reason Onset Date Comments LEG PAIN 10/08/2018 HEADACHE 10/08/2018 BACK PAIN, LOW 10/08/2018 NECK PAIN 10/08/2018 Encounter Details Date Type Department Care Team Description 10/08/2018 Office Visit Physicians Prashanth and Cecilia Calloway MD Pos t laminectomy syndrome; Back Center [facility] Mechanical low back pain; [address] [facility], Cervi caprice disc syndrome; [address] Cervical spinal stenosis; [place] [address] Cervical spine pain [phone] Social History Tobacco Use Types Packs/Day Years [...] Barron PA-C Referring physician: Thalia Barron PA-C [address] [place] [address] Reason for Consult: Evaluation of spine rehabilitation [...] participated in the pain management program at [facility]. She was diagnosed with centralized pain syndromeand [...] havenot been helpful. Pain management program at [facility] was also helpful. She was diagnosed with [...] file Gets together: Not on file Attends yazdanism service: Not on file Active member of [...] hours). 100 13 ??? nystatin-triamcinolone (AKA MYCOLOG-II) 075497-4.1 UNIT/GM-% cream Apply 1 Applicatorful topically 3 times daily. LW Addl Instr:pt applies to left corner of eye and left corner of mouth 15 3 ??? Hammond-3 Fatty Acids ([facility] FISH OIL) 1200 MG [...] Disability Index: No Value exists for the PACKAGER HAND: HP#[id number]% Neck Disability Index: No Value exists for the PACKAGER HAND: HP#NDISCORE% Labs: White Blood Cell Count (k/cmm) Date Value 05/01/2009 8.0 Hemoglobin (gm/dL) Date Value 05/01/2009 10.2 (L) Normal: 12-17 No results found for: HGBA1C, [id number] Creatinine Serum (mg/dL) Date Value 04/30/2009 0.7 [...] improve her spinalfitness level, and maintain it fdc, I think she has a good chance [...] Neck and Back Center Thalia Barron PA-C [address] [place], [place] [id number] documented in this encounter Plan of Treatment Not on filedocumented as of this encounter Visit Diagnoses Diagnosis Post laminectomy syndrome Postlaminectomy syndrome, unspecified re gion Mechanical low back pain Lumbago Cervical disc syndrome 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
--- OUTSIDE RECORDS SUMMARY | 2022-01-25 16:27 | XMS_ITS | Encounter Summary ---
:1955 Author Organization [facility] Address [address], [place] [address] Care Team Providers Name Role Phone Thalia [...] OF SPINE LOW BACK PAIN Thalia Barron, [facility] RODRIGO [address] [facility], [address] [place] [address] [place] [address] Phone: Fax: Referral ID Status Reason Start Date Expiration Date Visits Requ ested Visits Authorized [id number] Closed 10/06/2018 01/05/[phone] Encounter Details Date Type Department Care Team Description 11/25/2018 Therapy Physicians Neck and Marimar Pan PTA Mechanical low back pain (Primary Dx); Back Center [facility] [address], Cervical spine pain [address] [facility], [address] [place] [address] [place] [address] [phone] Social History Tobacco Use Types Packs/Day Years [...] tolerated) Start: 2:30 pm End: 3:16 pm (PARTY PLAN SALES HOST/HOSTESS Visit # 3 Subjective: Patient continues to [...] the benefits related to completing the [facility] Rehab program Assessment: Pt tolerated the treatment [...] morning with??Sx < or = to??3-4/10 ?? Cuff Knitter Goals (>6 weeks): 1. Patient will be [...] Cervicalgia documented in this encounter Care Teams Harp Regulator Relationship Specialty Start Date End Date Thalia Barron PA-C PCP - General Physician Bluing Oven Tender 10/06/18 documented as of this encounter
--- OUTSIDE RECORDS SUMMARY | 2022-01-25 16:27 | XMS_ITS | Encounter Summary ---
:1955 Author Organization [facility] Address [address] [place] [address] Care Team Providers Name Role Phone Thalia [...] OF SPINE LOW BACK PAIN Thalia Barron, PnResearch Medical CenterTallassee PA-C [address] [place] [address] [facility], [address] [place] [address] [place] [address] Phone: Fax: Referral ID Status Reason Start Date Expiration Date Visits Requ ested Visits Authorized [id number] Closed 10/06/2018 01/05/[phone] Encounter Details Date Type Department Care Team Description 11/20/2018 Therapy Physicians Neck and Nehemiah Kothari M echanical low back pain (Primary Dx); Back Center Raybrenda tyler PT Cervical spine pain [address] [facility], [address] [place] [place] [address] [place], [place] [id number] Social History Tobacco Use Types Packs/Day Years [...] out as tolerated)?? Start: 10:50 End: 11:30 (EMERGENCY MEDICINE MEDICAL DIRECTOR Visit # 2 Subjective: States her foot [...] morning with??Sx < or = to??3-4/10 ?? Powder Worker Goals (>6 weeks): 1. Patient will [...] Cervicalgia documented in this encounter Care Teams Rack Washer Relationship Specialty Start Date End Date Thalia Barron PA-C PCP - General Physician Journeyman Welder 10/06/18 documented as of this encounter
--- OUTSIDE RECORDS SUMMARY | 2022-01-25 16:27 | XMS_ITS | Encounter Summary ---
:1955 Author Organization [facility] Address [address] [place] [address] Care Team Providers Name Role Phone Denise Harris MD Primary Care Provider Encounter Details Date Type Department Care Team Description 06/02/2009 Office Visit [facility] Joshua Pires MD [address] [facility] [address] [facility] [place] [address] [place] [address] [phone] (Wo rk) Social History Tobacco Use Types [...] 07/07/102101 Note Time: 06/02/09 0001 Status: Signed Vocal Artist: Joshua Zaidi MD (Physician) NAME: FANTA COUGHLIN VISIT: [id number] DICTATING CLINICIAN: JOSHUA ZAIDI MD JOB: [id number] LOC: 3067 CLINIC PROGRESS NOTE DATE OF VISIT: 06/02/2009 [...] she is encouraged to call clinic. DOCUMENT: [id number] documented in this encounter Plan of Treatment Not on filedocumented as of this encounter Visit Diagnoses Not on filedocumented in this encounter Care Teams [employer] Relationship Specialty Start Date End Date Denise Harris MD PCP - General 06/17/10 10/05/[address] [place] [address] documented as of this encounter
--- OUTSIDE RECORDS SUMMARY | 2022-01-25 16:27 | XMS_ITS | Encounter Summary ---
:1955 Author Organization [facility] Address [address] [place] [address] Care Team Providers Name Role Phone Thalia [...] SPINE LOW BACK PAIN Thalia Barron, PnSaint [facility]'s Hospital [facility]ely[facility] [place]-C [address] [place] [address] [facility], [address] [place] [address] [place] [address] Phone: Fax: Referral ID Status Reason Start Date Expiration Date Visits Requ ested Visits Authorized [id number] Closed 10/06/2018 01/05/[phone] Encounter Details Date Type Department Care Team Description 11/09/2018 Therapy Physicians Neck and Sherin Nguyễn, chanical low back pain (Primary Dx); [facility] Cerv[facility] spine pain [address] [facility], [address] [place] [address] [place] [address] [phone] Social History Tobacco Use Types Packs/Day Years [...] tolerated) Start: 10:47 am End: 11:32 am (SWATCH MAKER Visit # 1 Subjective: Patient states her [...] 20 Other Rows and Lats: Used B [place]. No time for Quads and Hams today [...] Sx <??or = to??3-410 in her feet 5. Pt will get dressed in the morning with??Sx < or = to??3-410 ?? Exterior Door Installer Goals (>6 weeks): 1. Patient will be [...] in the morning with??Sx < or = to??1-10 Certification Dates: 10/15/18-01/13/19 ?? Precautions/Other Information: Follow [...] Cervicalgia documented in this encounter Care Teams Infusion Pharmacist Relationship Specialty Start Date End Date Thalia Barron PA-C PCP - General Physician Consolidation Accountant 10/06/18 documented as of this encounter
--- OUTSIDE RECORDS SUMMARY | 2022-01-25 16:27 | XMS_ITS | Encounter Summary ---
:1955 Author Organization [facility] Address [address] [place] [address] Care Team Providers Name Role Phone Thalia [...] LOW BACK PAIN Thalia Barron, [facility] RODRIGO [address] [place] 100 [facility], [address] [place] [address] [place] [address] Phone: Fax: Referral ID Status Reason Start Date Expiration Date Visits Requ ested Visits Authorized [id number] Closed 10/06/2018 01/05/2020 999 999 Encounter Details Date Type Department Care Team Description 11/17/2018 Therapy Physicians Neck and Bubba Kwong, [facility] hanical low back pain (Primary Dx); Back Center [facility] jayson DATA DESIGNER Cervical spine pain [address] [facility], [address] [facility] , [address] [place] [address] [place] [address] [place] [address] [phone] (Wo rk) Social History Tobacco Use Types [...] Start: 1128a (13 minutes late) End: 1203p (DATA DESIGNER Visit # 2 Subjective: Toenail removed last [...] of the benefits related to completing the [facility] Rehab program Opted for 1 set on [...] morning with??Sx < or = to??3-4/10 ?? Infrastructure Manager Goals (>6 weeks): 1. Patient will be independent with home exercise program after discontinued from Physical Therapy. *2. Pt will sit/drive 20 min??with Sx <??or = to 1-210??(At Eval: 09/23) *3. Pt will stand??>10 min??with [...] Cervicalgia documented in this encounter Care Teams Heel Seat Laster Relationship Specialty Start Date End Date Thalia Barron PA-C PCP - General Physician Post Anesthesia Room Nurse 10/06/18 documented as of this encounter
--- OUTSIDE RECORDS SUMMARY | 2022-01-25 16:27 | XMS_ITS | Encounter Summary ---
:1955 Author Organization [facility] Address [address] [place] [address] Care Team Providers Name Role Phone Thalia Barron PA-C Primary Care Provider Unavailable Reason for Visit Reason Comments NECK PAIN BACK PAIN Consult/Transfer Care (Routine) - Closed Specialty Diagnoses / Procedures Referred By Contact Refer red To Contact Physical Therapy Diagnoses Other cervical disc degeneration, unspecified cervical region (HRC) Spinal stenosis, cervical region CERV PAIN STENOSIS OF SPINE LOW BACK PAIN Thalia Barron, [facility] [place]-C [address] [place] [address] [facility], [address] [place] [address] [place] [address] Phone: Fax: Referral ID Status Reason Start Date Expiration Date Visits Requ ested Visits Authorized [id number] Closed 10/06/2018 01/05/2020 999 999 Encounter Details Date Type Department Care Team Description 10/19/2018 Therapy Physicians Neck and Sherin Nguyễn, chanical low back pain (Primary Dx); Back Center Ivanmartha tyler PT Cervical spine pain [address] [facility], [address] [address] [place] [address] [place] [address] [phone] Social History Tobacco Use Types Packs/Day Years [...] lesley) Start: 1:44 pm End: 2:30 pm (SHIFT ENGINEER Visit # 0 Subjective: PT inadvertently did [...] and keep gate open. Lats: Used B Lottie. Rows: Used B Lottie. Therapeutic Activities (0 min): Not performed today. [...] Sx < or = to 3-4/10 ?? Gis Administrator Goals (>6 weeks): 1. Patient will be [...] Cervicalgia documented in this encounter Care Teams Retort Firer Relationship Specialty Start Date End Date Thalia Barron PA-C PCP - General Physician Die Tripper 10/06/18 documented as of this encounter
--- OUTSIDE RECORDS SUMMARY | 2022-01-25 16:28 | XMS_ITS | Encounter Summary ---
:1955 Author Organization [facility] Address [address] [place] [address] Care Team Providers Name Role Phone Unassigned, Provider Primary Care Provider Unavailable Reason for Visit Reason Onset Date Comments QUESTIONS, GENERAL 09/28/2007 Encounter Details Date Type Department Care Team Description 09/28/2007 Telephone [facility] Unassigned, Provider QUESTIONS, GENERAL [address] [place] [address] [place] [address] Social History Tobacco Use Types Packs/Day Years Used Date Smoking Tobacco: Former Alcohol Use Standard Drinks/Week Comments No 0 (1 standard drink = 0.6 oz pure alcoho l) Recovering alcoholic Sex Assigned at Date Recorded Not on file documented as of this encounter Nursing Notes Caitlin Jauregui - 09/28/2007 12:17 PM CDT Returned patient's call. Please see [facility] documentation for full detail. Caitlin Jauregui, Pharm [...] on filedocumented in this encounter Care Teams Lubrication Supervisor Relationship Specialty Start Date End Date Unassigned, Provider PCP - General 03/27/00 06/16/[address] [place] [address] documented as of this encounter
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
--- OUTSIDE RECORDS SUMMARY | 2022-01-25 16:28 | XMS_ITS | Encounter Summary ---
:1955 [facility] Address [address] [place] [address] Care Team Providers Name Role Phone Unassigned, Provider Primary Care Provider Unavailable Reason for Visit Reason Onset Date Comments MEDICATION REVIEW AND EDUCATION 07/06/2007 Encounter Details Date Type Department Care Team Description 07/06/2007 Telephone [facility] Vianney Jauregui, MEDICATION REVIEW AND [address] [place] [address] [address] [phone] [place], [place] [address] [phone] (Wo rk) Social History Tobacco Use Types Packs/Day Years Used Date Smoking Tobacco: Former Alcohol Use Standard Drinks/Week Comments No 0 (1 standard drink = 0.6 oz pure alcoho l) Recovering alcoholic Sex Assigned at Date Recorded Not on file documented as of this encounter Patient Instructions Patient InstructionsRenettaVianney thomas - 07/06/2007 11:16 AM CDT Yaz, It [...] for follow-up evaluation. Please call me at [phone], if you have questions. Thank you, Vianney Jauregui, Pharm D documented in this encounter Nursing Notes Vianney Jauregui - 07/06/2007 4:30 PM CDT S Yaz Jeromebrooklynn Multani was referred to Medication Therapy Management Services by [facility] for medication review/education. Yaz is contacted today [...] in 3-6 month(s) for follow-up evaluation. Updated [facility] med list and reviewed medications including indications [...] constipation documented in this encounter Care Teams Complaint Evaluation Officer Relationship Specialty Start Date End Date Unassigned, Provider PCP - General 03/27/00 06/16/[address] [place] [address] documented as of this encounter
--- OUTSIDE RECORDS SUMMARY | 2022-01-25 16:28 | XMS_ITS | Encounter Summary ---
:1955 [email or web address] Address [address] [place] [address] Care Team Providers Name Role Phone Unassigned, Provider Primary Care Provider Unavailable Reason for Visit Reason Onset Date Comments MEDICATION REVIEW AND EDUCATION 07/29/2007 Encounter Details Date Type Department Care Team Description 07/29/2007 Telephone [facility] Vianney Jauregui, MEDICATION REVIEW AND [address] [place] [address] [address] [phone] [place], [place] [address] (Wo rk) Social History Tobacco Use Types Packs/Day Years Used Date Smoking Tobacco: Former Alcohol Use Standard Drinks/Week Comments No 0 (1 standard drink = 0.6 oz pure alcoho l) Recovering alcoholic Sex Assigned at Date Recorded Not on file documented as of this encounter Nursing Notes Vianney Jauregui - 07/29/2007 10:43 AM CDT Precious Multani was referred to Medication Therapy Management [...] on filedocumented in this encounter Care Teams Drum Tester Relationship Specialty Start Date End Date Unassigned, Provider PCP - General 03/27/00 06/16/[address] [place] [address] documented as of this encounter
--- OUTSIDE RECORDS SUMMARY | 2022-01-25 16:28 | XMS_ITS | Encounter Summary ---
:1955 Author Organization [facility] Address [address], [place] [address] Care Team Providers Name Role Phone Unavailable Primary Care Provider Unavailable Encounter Details Date Type Department Care Team Description 06/18/1999 Hospital Encounter [place] [address] [place], [place] [address] (Wo rk) Social History Tobacco Use Types Packs/Day Years Used Date Smoking Tobacco: Never Assessed Sex Assigned at Date Recorded Not on file documented as of this encounter Plan of Treatment Not on filedocumented as of this encounter Visit Diagnoses Not on filedocumented in this encounter
--- OUTSIDE RECORDS SUMMARY | 2022-01-25 16:28 | XMS_ITS | Encounter Summary ---
:1955 Author Organization [facility] Address [address] [address] Care Team Providers Name Role Phone Denise Harris MD Primary Care Provider Encounter Details Date Type Department Care Team Description 07/28/2000 Therapy Confucianist Physical T herapy Anna Mohan [address] [place] [address] Social History Tobacco Use Types Packs/Day Years Used Date Smoking Tobacco: Never Assessed Sex Assigned at Date Recorded Not on file documented as of this encounter Plan of Treatment Not on filedocumented as of this encounter Visit Diagnoses Not on filedocumented in this encounter Care Teams Metallurgy Teacher Relationship Specialty Start Date End Date Denise Harris MD PCP - General 06/17/10 10/05/[address] [place] [address] documented as of this encounter
--- OUTSIDE RECORDS SUMMARY | 2022-01-25 16:28 | XMS_ITS | Encounter Summary ---
:1955 Author Organization [facility] Address [address] [address] Care Team Providers Name Role Phone Denise Harris MD Primary Care Provider Encounter Details Date Type Department Care Team Description 02/02/2001 Therapy Restoration Physical T herapy Anna Mohan [address] [place] [address] Social History Tobacco Use Types Packs/Day Years Used Date Smoking Tobacco: Never Assessed Sex Assigned at Date Recorded Not on file documented as of this encounter Plan of Treatment Not on filedocumented as of this encounter Visit Diagnoses Not on filedocumented in this encounter Care Teams Machine Gun Mechanic Relationship Specialty Start Date End Date Denise Harris MD PCP - General 06/17/10 10/05/[address] [place] [address] documented as of this encounter
--- OUTSIDE RECORDS SUMMARY | 2022-01-25 16:28 | XMS_ITS | Encounter Summary ---
:1955 Author Organization [facility] Address [address] [address] Care Team Providers Name Role Phone Denise Harris MD Primary Care Provider Encounter Details Date Type Department Care Team Description 03/31/2002 Therapy [facility]V [facility] Anna Mohan [address] [place] [address] Social History Tobacco Use Types Packs/Day Years Used Date Smoking Tobacco: Never Assessed Sex Assigned at Date Recorded Not on file documented as of this encounter Plan of Treatment Not on filedocumented as of this encounter Visit Diagnoses Not on filedocumented in this encounter Care Teams Dye Mixer Relationship Specialty Start Date End Date Denise Harris MD PCP - General 06/17/10 10/05/[address] [place] [address] documented as of this encounter
--- OUTSIDE RECORDS SUMMARY | 2022-01-25 16:28 | XMS_ITS | Encounter Summary ---
:1955 [facility] Address [address] [place] [address] Care Team Providers Name Role Phone Unassigned, Provider Primary Care Provider Unavailable Reason for Visit Reason Onset Date Comments MEDICATION REVIEW AND EDUCATION 09/28/2007 Encounter Details Date Type Department Care Team Description 09/28/2007 Telephone [facility] Vianney Jauregui, MEDICATION REVIEW AND [address] [place] [address] [address] [phone] [place], [place] [address] [phone] ( rk) Social History Tobacco Use Types Packs/Day Years Used Date Smoking Tobacco: Former Alcohol Use Standard Drinks/Week Comments No 0 (1 standard drink = 0.6 oz pure alcoho l) Recovering alcoholic Sex Assigned at Date Recorded Not on file documented as of this encounter Patient Instructions Patient InstructionsPeVianney thomas - 09/29/2007 9:30 AM CDT Yaz, It [...] for follow-up evaluation. Please call me at [phone], if you have questions. Vianney Jauregui, Pharm [...] on filedocumented in this encounter Care Teams Optical Coating Technician Relationship Specialty Start Date End Date Unassigned, Provider PCP - General 03/27/00 06/16/[address] [place] [address] documented as of this encounter
--- OUTSIDE RECORDS SUMMARY | 2022-01-25 16:28 | XMS_ITS | Encounter Summary ---
:1955 Author Organization [facility] Address [address] [place] [address] Care Team Providers Name Role Phone Denise Harris MD Primary Care Provider Encounter Details Date Type Department Care Team Description 01/26/2003 PN Conversion Only [facility] [address] [place] [address] Social History Tobacco Use Types Packs/Day Years Used Date Smoking Tobacco: Never Assessed Sex Assigned at Date Recorded Not on file documented as of this encounter Plan of Treatment Not on filedocumented as of this encounter Visit Diagnoses Not on filedocumented in this encounter Care Teams Liquid Fertilizer Servicer Relationship Specialty Start Date End Date Denise Harris MD PCP - General 06/17/10 10/05/[address] [place] [address] documented as of this encounter
--- OUTSIDE RECORDS SUMMARY | 2022-01-25 16:28 | XMS_ITS | Encounter Summary ---
:1955 [facility] Address [address], [place] [address] Care Team Providers Name Role Phone Denise Harris MD Primary Care Provider Encounter Details Date Type Department Care Team Description 04/03/1999 Therapy Latter-Day Physical T herapy Anna Mohan [address] [place] [address] Social History Tobacco Use Types Packs/Day Years Used Date Smoking Tobacco: Never Assessed Sex Assigned at Date Recorded Not on file documented as of this encounter Plan of Treatment Not on filedocumented as of this encounter Visit Diagnoses Not on filedocumented in this encounter Care Teams Diesel Powerplant Mechanic Relationship Specialty Start Date End Date Denise Harris MD PCP - General 06/17/10 10/05/[address] [place] [address] documented as of this encounter
--- OUTSIDE RECORDS SUMMARY | 2022-01-25 16:28 | XMS_ITS | Encounter Summary ---
:1955 [facility] Address [address] [place] [address] Care Team Providers Name Role Phone Denise Harris MD Primary Care Provider Encounter Details Date Type Department Care Team Description 07/22/2003 PN Conversion Only [facility] [address] [place] [address] Social History Tobacco Use Types Packs/Day Years Used Date Smoking Tobacco: Never Assessed Sex Assigned at Date Recorded Not on file documented as of this encounter Plan of Treatment Not on filedocumented as of this encounter Visit Diagnoses Not on filedocumented in this encounter Care Teams Training Development Manager Relationship Specialty Start Date End Date Denise Harris MD PCP - General 06/17/10 10/05/[address] [place] [address] documented as of this encounter
--- OUTSIDE RECORDS SUMMARY | 2022-01-25 16:28 | XMS_ITS | Encounter Summary ---
:1955 Author Organization [facility] Address [address] [place] [address] Care Team Providers Name Role Phone Denise Harris MD Primary Care Provider Encounter Details Date Type Department Care Team Description 01/27/2006 Office Visit [facility] Joshua Zaidi MD [address] [facility] [address] [facility] [place], [place] [address] [place] [address] [phone] (Wo rk) Social History Tobacco Use Types [...] 1527 Note Time: 01/27/06 0001 Status: Signed Passenger Tire Inspector: Joshua Zaidi MD (Physician) NAME: FANTA COUGHLIN MR#: [id number] ACCT: [id number] VISIT: [id number] DICTATING CLINICIAN: JOSHUA ZAIDI MD JOB: [id number] LOC: 3711 CLINIC PROGRESS NOTE DATE OF VISIT: 01/27/2006 Corrected Copy: 01/29/06 [facility] SUBJECTIVE: : 1955Candy Mukherjee is a 50-year-old patient of Dr. Joshua Zaidi's that is coming in today for recheck [...] However, she does work out with a employment trainer at the gym. She also comes [...] Scarlett Capone PA-C for Joshua Zaidi MD JLB:[id number] C: 01/29/06 13:38 DOCUMENT: [id number] DROPPER documented in this encounter Plan of Treatment Not on filedocumented as of this encounter Visit Diagnoses Not on filedocumented in this encounter Care Teams Dean Of Boys Relationship Specialty Start Date End Date Denise Harris MD PCP - General 06/17/10 10/05/[address] [place] [address] documented as of this encounter
--- OUTSIDE RECORDS SUMMARY | 2022-01-25 16:28 | XMS_ITS | Encounter Summary ---
:1955 Author Organization [facility] Address [address] [place] [address] Care Team Providers Name Role Phone Denise Harris MD Primary Care Provider Encounter Details Date Type Department Care Team Description 03/24/2009 PN Conversion Only [facility] [address] [place] [address] Social History Tobacco Use Types Packs/Day Years Used Date Smoking Tobacco: Former Alcohol Use Standard Drinks/Week Comments No 0 (1 standard drink = 0.6 oz pure alcoho l) Recovering alcoholic Sex Assigned at Date Recorded Not on file documented as of this encounter Plan of Treatment Not on filedocumented as of this encounter Visit Diagnoses Not on filedocumented in this encounter Care Teams Hospice Case Manager Relationship Specialty Start Date End Date Denise Harris MD PCP - General 06/17/10 10/05/[address] [facility] [place] [address] documented as of this encounter
--- OUTSIDE RECORDS SUMMARY | 2022-01-25 16:28 | XMS_ITS | Encounter Summary ---
:1955 Author Organization [facility] Address [address] [address] Care Team Providers Name Role Phone Denise Harris MD Primary Care Provider Encounter Details Date Type Department Care Team Description 11/28/1999 Therapy Taoist Physical T herapy Anna Mohan [address] [place] [address] Social History Tobacco Use Types Packs/Day Years Used Date Smoking Tobacco: Never Assessed Sex Assigned at Date Recorded Not on file documented as of this encounter Plan of Treatment Not on filedocumented as of this encounter Visit Diagnoses Not on filedocumented in this encounter Care Teams Cherry Picker Operator Relationship Specialty Start Date End Date Denise Harris MD PCP - General 06/17/10 10/05/[address] [place] [address] documented as of this encounter
--- OUTSIDE RECORDS SUMMARY | 2022-01-25 16:28 | XMS_ITS | Encounter Summary ---
:1955 Author Organization [facility] Address [address] [address] Care Team Providers Name Role Phone Denise Harris MD Primary Care Provider Encounter Details Date Type Department Care Team Description 06/08/2003 Therapy Kizzy thomas Therapy Anna Mohan [address] [place], [place] [address] Social History Tobacco Use Types Packs/Day Years Used Date Smoking Tobacco: Never Assessed Sex Assigned at Date Recorded Not on file documented as of this encounter Plan of Treatment Not on filedocumented as of this encounter Visit Diagnoses Not on filedocumented in this encounter Care Teams Camp Maintenance Supervisor Relationship Specialty Start Date End Date Denise Harris MD PCP - General 06/17/10 10/05/[address] [address] documented as of this encounter
--- OUTSIDE RECORDS SUMMARY | 2022-01-25 16:28 | XMS_ITS | Encounter Summary ---
:1955 [facility] Address [address] [place] [address] Care Team Providers Name Role Phone Denise Harris MD Primary Care Provider Encounter Details Date Type Department Care Team Description 12/03/1999 Therapy [place] [address] [place], [place] [address] (Wo rk) Social History Tobacco Use Types Packs/Day Years Used Date Smoking Tobacco: Never Assessed Sex Assigned at Date Recorded Not on file documented as of this encounter Plan of Treatment Not on filedocumented as of this encounter Visit Diagnoses Not on filedocumented in this encounter Care Teams Brass Burnisher Relationship Specialty Start Date End Date Denise Harris MD PCP - General 06/17/10 10/05/[address] [place] [address] documented as of this encounter
--- OUTSIDE RECORDS SUMMARY | 2022-01-25 16:28 | XMS_ITS | Encounter Summary ---
:1955 Author [facility] Address [address] [place] [address] Care Team Providers Name Role Phone Denise Harris MD Primary Care Provider Encounter Details Date Type Department Care Team Description 03/20/2005 Office Visit [facility] Jagdish Contreras MD [address] [facility] [address] [facility] [address] [place] [address] [place] [address] [phone] (Wo rk) Social History Tobacco Use Types Packs/Day Years Used Date Smoking Tobacco: Never Assessed Sex Assigned at Date Recorded Not on file documented as of this encounter Plan of Treatment Not on filedocumented as of this encounter Visit Diagnoses Not on filedocumented in this encounter Care Teams Discotheque Dancer Relationship Specialty Start Date End Date Denise Harris MD PCP - General 06/17/10 10/05/[address] [place] [address] documented as of this encounter
--- OUTSIDE RECORDS SUMMARY | 2022-01-25 16:28 | XMS_ITS | Encounter Summary ---
:1955 Author Organization [facility] Address [address] [address] Care Team Providers Name Role Phone Denise Harris MD Primary Care Provider Encounter Details Date Type Department Care Team Description 12/08/2002 Therapy Kizzy Erazo l Therapy Anna Mohan [address] [place] [address] Social History Tobacco Use Types Packs/Day Years Used Date Smoking Tobacco: Never Assessed Sex Assigned at Date Recorded Not on file documented as of this encounter Plan of Treatment Not on filedocumented as of this encounter Visit Diagnoses Not on filedocumented in this encounter Care Teams Safety Tech Relationship Specialty Start Date End Date Denise Harris MD PCP - General 06/17/10 10/05/[address] [place] [address] documented as of this encounter
--- OUTSIDE RECORDS SUMMARY | 2022-01-25 16:29 | XMS_ITS | Encounter Summary ---
:1955 Author Organization [facility] Address [address] [place] [address] Care Team Providers Name Role Phone Denise Harris Primary Care Provider Reason for Referral Specialty Diagnoses / Procedures Referred By Contact Refer red To Contact Jeanine Resendiz DPM, Podiatry/Foot and An kle Surgery [address] [place] [address] Referral ID Status Reason Start Date Expiration Date Visits Requ ested Visits Authorized CTOR OF FINANCE Reason for Visit Reason Comments Ingrown Toenail Pain Ingrown Toenail Pain Encounter Details Date Type Department Care Team Description 04/08/[address] [facility] Jeanine Resendiz, Foot pa in, bilateral (Primary Dx); Clinic Luis BONILLA, Podiatry/Foot Ingrown nail of great toe of left foot; [address] E and Ankle Surgery Ingrown nail of second toe of left foot; [place] [address] Sukhi dixon of both feet; [phone] [address] Plantar fasciitis, bilateral; [place], [place] Achilles tend onitis, bilateral [address] (Wo [...] Comments Blood Pressure 120/62 04/08/2018 9:37 AM DIRECTOR OF FINANCE Pulse - - Temperature - - Respiratory Rate - - Oxygen Saturation - - Inhaled Oxygen Concentration - - Weight 106.8 kg (235 lb 6.4 oz) 04/08/2018 9:37 AM DIRECTOR OF FINANCE Height 176 cm (5' 9.29) 04/08/2018 9:37 AM DIRECTOR OF FINANCE Body Mass Index 34.47 04/08/2018 9:37 AM DIRECTOR OF FINANCE documented in this encounter Patient Instructions Patient InstructionsMimagiJonathan fields - 04/08/2018 9:30 AM CST Thank you for choosing [facility]! DR. RESENDIZ'S CLINIC SCHEDULE FRIDAY AM - [place] FRIDAY - [place] [address] [facility] [address] [address] [address] [place] [address] / FX [phone] / FX [phone] FRIDAY - [place] FRIDAY AM - [facility] [address] [address] [place] [address] JV Zamora [address] / FX [phone] FRIDAY PM - [place] SCHEDULE SURGERY: [phone] BILLING QUESTIONS: [phone] JV Elizabeth [address] AFTER HOURS: [phone] / FX [phone] APPOINTMENTS: [phone] Consumer Rubin Line (CPL) [phone] DIABETES AND YOUR FEET Diabetes can result [...] 2000 IU daily), Alpha-Lipoic Acid (600-1800mg daily), Pylctt-K-Mrybsshkb (500-1000mg TID, L-methyl folate (1500mcgdaily) Metformin can [...] trim your own toenails contact [facility] ([phone]) or [facility] ([phone]). THINGS TO AVOID DOING 1. Do not [...] one of these contacts for more information: [facility] Rika Lew [phone] (Travels to your home) [facility] [phone] (Travels to your home) Abhilash Weathers DPM [address] [place] [address] [facility] [phone] (Travels to your home) [facility] [address] [place] [address] Footworks [phone] [place] [facility] Kailyn Duvall, [place] [address] [place] [address] [facility] [phone] [facility] [phone] [facility] (does not take BCBS) [facility] [phone] Body Mass Index (BMI) Many things can [...] and getting you back on your feet. CTOR OF FINANCE documented in this encounter Progress Notes Jeanine Resendiz DPM, Podiatry/Foot and Ankle Surgery - 04/08/2018 9:30 AM DIRECTOR OF FINANCE PATIENT HISTORY: Yaz Multani is a 62 [...] have care done by Dr. Brown in [place]. Review of Systems: Patient denies fever, chills, [...] tablets twice daily, Disp: , Rfl: ??? Leslie-3 Fatty Acids (OMEGA 3 PO), Take by [...] tendonitis, bilateral PLAN: Reviewed patient's chart in [facility]. The potential causes and nature of plantar [...] Foot pain , bilateral PLATE SIMPLE SINGLE DIRECTOR OF FINANCE Ingrown nail of great toe of left foot Ingrown nail of second toe of left foot Pes planus of liudmila th feet Plantar fasciitis, bilateral Achilles tendonitis, bilateral HC REMOVAL OF NAIL Routine 04/08/2018 10:00 AM Foot pain , bilateral PLATE SIMPLE SINGLE DIRECTOR OF FINANCE Ingrown nail of great toe of left [...] bilateral documented in this encounter Care Teams Radiologist Chief Of Breast Imaging Relationship Specialty Start Date End Date Denise Harris PCP - General Internal Medicine 01/17/15 [facility] [address] [place] [address] documented as of this encounter
--- OUTSIDE RECORDS SUMMARY | 2022-01-25 16:29 | XMS_ITS | Encounter Summary ---
:1955 Author Organization [facility] Address [address] [place] [address] Care Team Providers Name Role Phone Denise [...] on filedocumented in this encounter Care Teams Automatic Hemmer Relationship Specialty Start Date End Date Denise Harris PCP - General Internal Medicine 01/17/15 [facility] [address] [place] [address] Anoop Emery Referring Physician Family Medicine 09/15/20 [facility] [address] [place] [address] Inez Peck MD MD Urology 09/15/[address] [place] [address] [address] [place], [place] [address] documented as of this encounter
--- OUTSIDE RECORDS SUMMARY | 2022-01-25 16:29 | XMS_ITS | Encounter Summary ---
:1955 Author Organization [facility] Address [address] [place] [address] Care Team Providers Name Role Phone Denise [...] on filedocumented in this encounter Care Teams Garment Folder Relationship Specialty Start Date End Date Denise Harris PCP - General Internal Medicine 01/17/15 [facility] [address] [place] [address] documented as of this encounter
--- OUTSIDE RECORDS SUMMARY | 2022-01-25 16:29 | XMS_ITS | Encounter Summary ---
:1955 Author Organization [facility] Address [address] [place] [address] Care Team Providers Name Role Phone Denise Harris Primary Care Provider Reason for Visit Reason Comments Heart Problem NEW PATIENT* appt for newly diagnosed diastolic dysfunction. Encounter Details Date Type Department Care Team Description 02/06/2015 Office Visit [facility] Bobby Frey ic dysfunction; Heart Clinic Jhonny Loza MD Palpitations [facility] [address] [place] [address] [place] [address] [place] [phone] [address] Social History Tobacco Use Types Packs/Day [...] Comments Blood Pressure 124/74 02/06/2015 2:50 PM PARIMUTUEL TICKET SELLER Pulse 66 02/06/2015 2:50 PM PARIMUTUEL TICKET SELLER Temperature - - Respiratory Rate - - Oxygen Saturation - - Inhaled Oxygen Concentration - - Weight 119.7 kg (264 lb) 02/06/2015 2:50 PM PARIMUTUEL TICKET SELLER Height 175.3 cm (5' 9) 02/06/2015 2:50 PM PARIMUTUEL TICKET SELLER Body Mass Index 38.99 02/06/2015 2:50 PM PARIMUTUEL TICKET SELLER documented in this encounter Progress Notes Jhonny [...] Jhonny Frey MD cc: [place] [address] JHONNY FREY MD MT: al Name: YAZ COUGHLIN MRN: [id number] Account: [id number] : 1955 Service Date: 02/06/2015 Document: [id number] MUTUEL TICKET SELLER Jhonny Frey MD - 02/06/2015 5:34 PM [...] Take by mouth 2 times daily ??? Mentone-3 Fatty Acids (OMEGA 3 PO) Take by [...] No referring provider defined for this encounter. MUTUEL TICKET SELLER documented in this encounter Plan of Treatment [...] Palpitations documented in this encounter Care Teams Hvac Service Manager Relationship Specialty Start Date End Date Denise Harris PCP - General Internal Medicine 01/17/15 [facility] [address] [place] [address] documented as of this encounter
--- OUTSIDE RECORDS SUMMARY | 2022-01-25 16:29 | XMS_ITS | Encounter Summary ---
:1955 Author Organization [facility] Address [address] [place] [address] Care Team Providers Name Role Phone Denise Harris Primary Care Provider Reason for Visit Reason Onset Date Comments Results 02/06/2015 [facility] 01-31-15 Encounter Details Date Type Department Care Team Description 02/06/2015 Telephone [facility] Shante, Results ([facility] Svetlana Loza MD 01-31-15 ) [place] [address] [place], [place] [phone] [address] (Wo rk) Social History Tobacco Use [...] set up monitor. Ric CARDOSO 11:33 AM ENT TRANSPORTATION DRIVER Telephone Encounter - Mulu Hugo RN - 02/07/2015 5:04 PM CST Spoke to to patient reviewed Dr. Frey's recommendations. I will have Cardiopulmonary or scheduling call her tomorrow to set up monitor. Ric RN 5:05 PM ENT TRANSPORTATION DRIVER Telephone Encounter - Mulu Hugo RN - 02/07/2015 11:52 AM CST Left message for patient to call back to review. Ric CARDOSO 11:53 AM ENT TRANSPORTATION DRIVER Telephone Encounter - Svetlana Frey MD - 02/06/2015 5:36 PM PATIENT TRANSPORTATION DRIVER Please call patient and let her know holter was benign and we have ordered mobile telemetry. Please communicate the need for hypoallergenic contacts to the telemetry people ENT TRANSPORTATION DRIVER documented in this encounter Plan of Treatment Not on filedocumented as of this encounter Visit Diagnoses Not on filedocumented in this encounter Care Teams Band Lining Bander Relationship Specialty Start Date End Date Denise Harris PCP - General Internal Medicine 01/17/15 [facility] [address] [place] [address] documented as of this encounter
--- OUTSIDE RECORDS SUMMARY | 2022-01-25 16:29 | XMS_ITS | Encounter Summary ---
:1955 Author Organization [place] Address [address] [place] [address] Care Team Providers Name Role Phone Denise Harris Primary Care Provider Anoop Emery Unavailable Inez Peck MD Unavailable Reason for Referral Rehab Therapy Physical Therapy (Routine) - Closed Specialty Diagnoses / Procedures Referred By Contact Refer red To Contact Diagnoses Abnormal defecation Fibromyalgia Myalgia of pelvic floor High-tone pelvic floor dysfunction Inez Peck MD 420 [facility] [address] [place], [place] [address] Referral ID Status Reason Start Date Expiration Date Visits Requ ested Visits Authorized [id number] Closed 11/02/2020 11/02/2021 1 1 Reason for Visit Reason Comments Consult Pelvic floor dysfunction COREMAKER MACHINE (Routine) - Closed Specialty Diagnoses / Procedures Referred By Contact Refer red To Contact Diagnoses Pelvic floor dysfunction in female Generic External Data Department Referral ID Status Reason Start Date Expiration Date Visits Requ ested Visits Authorized [id number] Closed 09/15/2020 09/15/2021 1 1 Encounter Details Date Type Department Care Team Description 11/02/2020 Office Visit [facility] Mable Emery [facility] [address] [place] [address] Abnormal defecation (Primary Dx); Urology Clinic Inez Peck MD 420 [facility] [address] [place], [place] [address] Fibromyalgia; Scotrun Myalgia of pelvic floor; 909 [facility] High-tone pelvic floor dysfu nction 4th [place] [address] Social History Tobacco Use Types [...] 2:15 PM CDT Websites with free information: [employer] patient website: www.voicesforpfd.org Total Control Program: www.totalcontrolprogram.com Pelvic floor physical therapy with internal myofascial release at [facility] Leonela Meadeerson [phone] It was a pleasure meeting with you [...] November 02, 2020 Referring Provider: [place] [address] Primary Care Provider: Denise Harris Assessment & Plan Abnormal defecation She has had defecography in the past at [facility] that shows an non relaxing PT discussed [...] spent in reviewing her GI notes from [facility] and her defecography, direct patient care and coordination of care Inez Peck MD MPH (she/her/hers) Help Desk Supervisor of Urology [facility] HPI: Yaz Multani is a 65 year old [place] female who presents for evaluation of her pelvicfloor symptoms. She has a long standing history of defecatory dysfunction 09/2017 DR Alfaro [facility] 01/2018 MR proctogram with abdnormal defecation with [...] Gatherings with Friends and Family: ??? Attends Restorationism Services: ??? Active Member of Clubs or [...] Multiple Vitamins-Minerals (WOMENS DAILY FORMULA PO) ??? Rowe-3 Fatty Acids (OMEGA 3 PO) ??? pramipexole [...] times daily Two tablets twice daily ??? Rowe-3 Fatty Acids (OMEGA 3 PO) Take by [...] Name Type Priority Associated Diagnoses [facility] Referral Routine Abnormal defeca [...] documented as of this encounter Care Teams Car Spotter Relationship Specialty Start Date End Date Denise Harris PCP - General Internal Medicine 01/17/15 [facility] [address] [place] [address] Anoop Emery Referring Physician Family Medicine 09/15/20 [facility] [address] [place] [address] Inez Peck MD MD Urology 09/15/[address] [place] [phone] documented as of this encounter
--- OUTSIDE RECORDS SUMMARY | 2022-01-25 16:29 | XMS_ITS | Clinical Summary ---
:1955 Author Organization [place] Address [address] [place] [address] Care Team Providers Name Role Phone Margie [...] Active MG capsule mouth 3 times daily Cashmere-3 Fatty Acids Take by mouth 2 0 [...] Organization Address City/State/ZIP Code Phon e Number [facility] [address] [address] (ABNORMAL) Basic metabolic panel (01/03/2022 10:12 AM [...] and gender (Jeni et al., NEJ, DOI: 10.1056/[id number]) Specimen Anatomical Collection Method / Collection Time Recei fahad Time (Source) Location / Volume Laterality Blood STRUCTURE OF LEFT Venipuncture / 01/03/2022 10:12 10 5:44 UPPER LIMB / Unknown AM CDT PM CDT Unknown Emi Wyatt NP LAB - BLOOD ORDERABLES Performing Organization Address City/State/ZIP Code Phon e Number [facility] [place] [address] Lab [address] [facility] J Building, Room 3-580 (ABNORMAL) CBC with platelets (01/03/2022 10:12 AM CDT) [facility] gist Method Time Signature WBC Count [...] City/State/ZIP Code Phon e Number [facility] [place] [address] [phone] Lab 500 [facility] [address] Building, Room 3-580 from Last 3 Months Insurance Payer Benefit Plan / Subscriber ID Effective Phone Address T ype Group Dates BCBS BCBS [place] [id number] 2016-Prese [phone] [address] [address] PPO BLUE nt 00 [place] [address] MEDICARE MEDICARE FOR HB [id number] 2014-Prese [phone] ATTN CLAIMS Medicare SUPPLEMENT nt 40 [address] [place] [address] (Home) [place] [address] Care Teams Music Internship Relationship Specialty Start Date End Date Denise Harris PCP - General Internal Medicine 01/17/15 [facility] [address] [place] [address] Anoop Emery Referring Physician Family Medicine 09/15/20 [facility] [address] [place] [address] Inez Peck MD Urology 09/15/20 [place] 420 [facility] 394 [place], [place] [address] Inez Peckg, Assigned Surgical 11/12/20 MD Provider [address] [place] [address]
--- OUTSIDE RECORDS SUMMARY | 2022-01-25 16:29 | XMS_ITS | Encounter Summary ---
:1955 Author Organization [place] Address [address] [place] [address] Care Team Providers Name Role Phone Denise Harris Primary Care Provider Anoop Emery Unavailable Inez Peck MD Unavailable Encounter Details Date Type Department Care Team Description 09/14/2020 Medical Correspondence [facility] Scan, CLINIC REFERRAL Health Info [facility] Non-Provider [facility] CLINICS [address] [place] [phone] Social History Tobacco Use Types Packs/Day [...] on filedocumented in this encounter Care Teams Social Science Teacher Relationship Specialty Start Date End Date Denise Harris PCP - General Internal Medicine 01/17/15 [facility] [address] [place] [address] Anoop Emery Referring Physician Family Medicine 09/15/20 [facility] [address] [place] [address] Inez Peck MD MD Urology 09/15/[address] [place] [address] [phone] documented as of this encounter
--- OUTSIDE RECORDS SUMMARY | 2022-01-25 16:29 | XMS_ITS | Encounter Summary ---
:1955 Author Organization [place] Address [address] [place] [address] Care Team Providers Name Role Phone Denise [...] documented as of this encounter Care Teams Blueberry Grower Relationship Specialty Start Date End Date Denise Harris PCP - General Internal Medicine 01/17/15 [facility] [address] [place] [address] Anoop Emery Referring Physician Family Medicine 09/15/20 [facility] [address] [place] [address] Inez Peck MD MD Urology 09/15/[address] [place] [address] documented as of this encounter
--- OUTSIDE RECORDS SUMMARY | 2022-01-25 16:29 | XMS_ITS | Encounter Summary ---
:1955 Author Organization [place] Address [address] [place] [address] Care Team Providers Name Role Phone Denise Harris Primary Care Provider Reason for Visit (Routine) - Closed Specialty Diagnoses / Procedures Referred By Contact Refer red To Contact Cardiology Diagnoses 01/17-sent reminder ltr to pt w/directions to [facility] for 48-hr holter monitor appt (pt was offered an earlier date, but declined) [facility] Procedures HOLTER MONITOR [address] [facility] [address] [place] [phone] Phone: Fax: Referral ID Status Reason Start Date Expiration Date Visits Requ ested Visits Authorized [id number] Closed 01/30/2015 01/30/2016 1 1 Encounter Details Date Type Department Care Team Description 01/31/2015 Hospital Encounter [facility] Care Addis MD Manish [address] [facility] [address] [address] [place], [place] [phone] Social History Tobacco Use Types Packs/Day Years [...] were given and all questions were answered. CAL MASSAGE THERAPIST documented in this encounter Plan of Treatment [...] RADIANT - 02/06/[address] [facility] [address] [facility] [address] [facility] [address] 01/31/2015 Patient: ??Yaz Rosangela Chart: [id number] : ??1955 Age: ??59 year old Sex: ??female Procedure: ??Holter Monitor Placed: plea se see scanned document for result once interpretation is comple mando. Fine Artist performing hook-up: ??Nuvia Mcclellan Amna Messer MD CV CARDIAC SERVICES ORDERABL ES Performing Organization Address City/State/ZIP Code Phon e Number RADIANT documented in this encounter Visit Diagnoses Diagnosis Shortness of breath documented in this encounter Care Teams Rerecording Mixer Relationship Specialty Start Date End Date Denise Harris PCP - General Internal Medicine 01/17/15 [facility] [address] [place] [address] documented as of this encounter
--- OUTSIDE RECORDS SUMMARY | 2022-01-25 16:29 | XMS_ITS | Encounter Summary ---
:1955 Author Organization [place] Address [address] [place] [address] Care Team Providers Name Role Phone Denise [...] on filedocumented in this encounter Care Teams Rn Endocrinology Relationship Specialty Start Date End Date Denise Harris PCP - General Internal Medicine 01/17/15 [facility] [address] [place] [address] documented as of this encounter
--- OUTSIDE RECORDS SUMMARY | 2022-01-25 16:29 | XMS_ITS | Encounter Summary ---
:1955 Author Organization [place] Address [address] [place] [address] Care Team Providers Name Role Phone Denise Harris Primary Care Provider Encounter Details Date Type Department Care Team Description 01/17/[address] [facility] Amna Messer Sh ortness of breath Center (Primary Dx) [address] [facility] [address] [place] [phone] Social History Tobacco Use Types Packs/Day Years Used Date Smoking Tobacco: Never Assessed Sex Assigned at Date Recorded Female 10/30/2020 4:00 PM CDT documented as of this encounter Plan of Treatment Not on filedocumented as of this encounter Results Holter Monitor 48 hour - Adult (02/06/2015) Narrative RADIANT - 02/06/2015 [facility] [address] [facility] [address] [facility] [address] 01/31/2015 Patient: ??Yaz Adames Chart: [id number] : ??1955 Age: ??59 year old Sex: ??female Procedure: ??Holter Monitor Placed: plea se see scanned document for result once interpretation is comple mando. Weatherization Field Technician performing hook-up: ??Nuvia Mcclellan Amna Messer MD CV CARDIAC SERVICES ORDERABL ES Performing Organization Address City/State/ZIP Code Phon e Number [facility] documented in this encounter Visit Diagnoses Diagnosis Shortness of breath - Primary Shortness of breath documented in this encounter Care Teams Etl Database Developer Relationship Specialty Start Date End Date Denise Harris PCP - General Internal Medicine 01/17/15 [facility] [address] [place] [address] documented as of this encounter
--- OUTSIDE RECORDS SUMMARY | 2022-01-25 16:29 | XMS_ITS | Encounter Summary ---
:1955 Author Organization [place] Address [address] [place] [address] Care Team Providers Name Role Phone Denise Harris Primary Care Provider Reason for Visit Reason Onset Date Comments Previsit 02/01/[address] jah waters on 02/06/15 Encounter Details Date Type Department Care Team Description 02/01/2015 PRE VISIT [facility] Cj Frey (ov with dr [facility] MD timothy Carballo on [place] [facility] 02/06/15) [address] [facility] [address] [place] [address] [place], [place] [phone] (Wo rk) Social History Tobacco Use Types Packs/Day Years Used Date Smoking Tobacco: Never Assessed Sex Assigned at Date Recorded Female 10/30/2020 4:00 PM CDT documented as of this encounter Miscellaneous Notes Telephone Encounter - Ramonita Padilla RN - 02/03/2015 2:49 PM CST Received PMD records and echo. Sent to scan. HER ADJUSTER Telephone Encounter - Saray Tran - 02/02/2015 8:08 AM CST PCP recs received- sent to chart prep HER ADJUSTER Telephone Encounter - Saray Tran - 02/01/2015 3:16 PM CST PCP recs requested HER ADJUSTER documented in this encounter Plan of Treatment Not on filedocumented as of this encounter Visit Diagnoses Not on filedocumented in this encounter Care Teams Incident Response Consultant Relationship Specialty Start Date End Date Denise Harris PCP - General Internal Medicine 01/17/[address] [address] documented as of this encounter
--- OUTSIDE RECORDS SUMMARY | 2022-01-25 16:29 | XMS_ITS | Encounter Summary ---
:1955 Author Organization [place] Address [address] [place] [address] Care Team Providers Name Role Phone Denise Harris Primary Care Provider Anoop Emery Unavailable Inez Peck MD Unavailable Reason for Visit Reason Onset Date Comments Previsit 11/02/2020 Encounter Details Date Type Department Care Team Description 11/02/2020 PRE VISIT [facility] Urology Natanael Peck MD Previsit Clinic [address] [place] [address] [phone] Social History Tobacco Use Types Packs/Day Years [...] 09/25/2020 1:47 PM CDT MEDICAL RECORDS REQUEST [facility] [address] [place] [address] PHONE: [phone] FUTURE VISIT INFORMATION Yaz Multani, : 1955 scheduled for future visit at [facility] APPOINTMENT INFORMATION: ?? Date: 11.02.20 ?? Provider: 2:15 PM ?? Reason for Visit/Diagnosis: Pelvic floor dysfunction in female REFERRAL INFORMATION: ?? Referring provider: Dr. Anoop Emery ?? Specialty: ?? Referring providers clinic: [facility] RECORDS REQUESTED FOR VISIT NOTES STATUS/DETAILS OFFICE [...] documented as of this encounter Care Teams Drill Punch Operator Relationship Specialty Start Date End Date Denise Harris PCP - General Internal Medicine 01/17/15 [facility] [address] [place] [address] Anoop Emery Referring Physician Family Medicine 09/15/20 [facility] [address] [place] [address] Inez Peck MD MD Urology 09/15/[address] [place] [phone] documented as of this encounter
--- OUTSIDE RECORDS SUMMARY | 2022-01-25 16:29 | XMS_ITS | Encounter Summary ---
:1955 Author Organization [place] Address [address] [place] [address] Care Team Providers Name Role Phone Denise Harris Primary Care Provider Yuly Anoop Unavailable Inez Peck See Luis Antonio GARZA Unavailable Reason for Visit Reason Onset Date Comments Pre Visit Planning - Done 10/26/2020 Encounter Details Date Type Department Care Team Description 10/26/2020 PRE VISIT [facility] Inez Peck Pre Vi sit Planning - Urology Clinic MD Luis Antonio Done [place] [address] [facility] [address] [place], [place] [address] [phone] Social History Tobacco Use Types Packs/Day Years [...] on filedocumented in this encounter Care Teams Road Service Locksmith Relationship Specialty Start Date End Date Denise Harris PCP - General Internal Medicine 01/17/15 [facility] [address] [place] [address] Anoop Emery Referring Physician Family Medicine 09/15/20 [facility] [address] [place] [address] Inez Peck MD MD Urology 09/15/[address] [place] [address] 394 [place] [address] documented as of this encounter
--- OUTSIDE RECORDS SUMMARY | 2022-01-25 16:30 | XMS_ITS | Encounter Summary ---
:[address] [facility] Address [address] [place] [address] Care Team Providers Name Role Phone Unavailable Primary Care Provider Unavailable Encounter Details Date Type Department Care Team Description 01/14/2022 Clinical Communication Department of Merissa Gaviria, Orthopedic Surgery in [place], [place] [address] [place] [phone] Social History Tobacco Use Types Packs/Day Years [...] do you attend mosque or Never 2021 zoroastrianism services? Do you [...] slept in a nursing home (including now)? Education Answer Date Recorded What is the highest level of school Master's degree (e.g., M A, MS, 07/15/2020 you have completed or the highest Tiara, MEd, DIPLOMA MEDICAL ASSISTANT, ODILIA) degree you have received? Sex Assigned [...] Orthopedic Surgery Deon Herrera M.D. [address] [place], [place] [phone] (Wo rk) documented as of this encounter Visit Diagnoses Not on filedocumented in this encounter Additional Health Concerns Assessment Noted Time PHQ-9 Depression Total Score: 5 04/29/2016 10:10 AM CS T documented as of this encounter
--- OUTSIDE RECORDS SUMMARY | 2022-01-25 16:30 | XMS_ITS | Encounter Summary ---
:1955 Author Organization [facility] Address [address] [place] [address] Care Team Providers Name Role Phone Unavailable Primary Care Provider Unavailable Encounter Details Date Type Department Care Team Description 01/12/2022 Documentation Department of Orthopedic Alix hammond, Surgery in [place], Tatum Hammond M.D. [place] [address] [facility] [address] [place] [phone] [phone] (Wo rk) Social History Tobacco Use Types [...] do you attend quaker or Never 2021 anabaptist services? Do you [...] completed or the highest Tiara, MEd, AIRCRAFT SYSTEMS TECHNICIAN, ODILIA) degree you have received? Sex Assigned at Date Recorded Female 07/21/2017 2:58 PM CDT documented as of this encounter Plan of Treatment Upcoming Encounters Date Type Specialty Care Team Description 02/04/2022 Office Visit Orthopedic Surgery Deon Herrera M.D. [address] [place] [phone] (Wo rk) documented as of this encounter Visit Diagnoses Not on filedocumented in this encounter Additional Health Concerns Assessment Noted Time PHQ-9 Depression Total Score: 5 04/29/2016 10:10 AM ANATOLIY T documented as of this encounter
--- OUTSIDE RECORDS SUMMARY | 2022-01-25 16:30 | XMS_ITS | Clinical Summary ---
:1955 Author Organization [facility] Address [address] [place] [address] Care Team Providers Name Role Phone Unavailable Primary Care Provider Unavailable Source Comments Patient records contain information from all sites at [facility]. For routine questions regarding patient records, call [phone] during business hours, M-F 8:00 AM - 5:00 PM Central Time. Record requests for emergency care only can be directed to [phone] at any time.[facility] Allergies Active Allergy Reactions Severity Noted [...] 06/03 ( Stop Taking at 22 Discharge) amoxicillin (AMOXIL) 500 mg Take 2,000 mg 0 12/15 Discontinued capsule by mouth as 06/03 (Stop Ta tio at directed. 22 Discharge) ibuprofen (ADVIL,MOTRIN) Take 800 mg by 0 11/17/201812/15 Discontinued 800 mg tablet mouth every 6 06/03 (S top Taking at (six) hours as 22 Disch arge) needed. oxyCODONE-acetaminophen Take 1-2 0 06/04/202012/15 Discontinued (PERCOCET) [...] Added automatically from request for brandin coleman [id number] Pain Neuropathic 04/11/2020 Constipation 09/23/2017 Prolapse Vaginal [...] Functi onal Status [R53.81 (ICD-10-CM)]; [facility]athy ([facility]) 12/21/2021 Office Visit Orthopedic Surgery Javier, Cervical Disc Wilmer Lang M.D. Disorder With Myelopathy (Marleen skyler Dx) 12/21/2021 Comprehensive Visit Anesthesiology Javier, Preope rative Exam (Primary Dx); Wilmer Lang M.D. Pain Low Back Unspecified; Warczjewell, Diabetes [facility] us Type 2 With Diabetic Neuropathy ([facility]); Ernesto Cid M.D. 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 Anticoagulant T herapy; Preoperative Ex am 12/18/2021 Hospital Encounter Radiology Javier, Preoperat shandra Exam Wilmer Lang M.D. 12/18/2021 Hospital Encounter Radiology Javier, Stenosis Spinal Wilmer Lang M.D. Cervical 12/18/2021 Hospital Encounter Radiology Javier, Preoperat shnadra Exam Wilmer Lang M.D. 12/04/2021 Documentation Social Work Adrianne Camp, Felicitas.I.C.S.W., M.S.W. 11/26/2021 Telemedicine Spine Gelfman, Myelopathy Cerv ical (HCC) (Primary Dx); [place] Chinchilla Stenosis Spina l Cervical; Stenosis Spinal Lumbar With Neurogenic Claudication 11/14/2021 Hospital Encounter Radiology Lia Junior s Spinal R, RIVET FLUNKY, Cervical C.N.P., M.S.N. 11/14/2021 Comprehensive Visit Orthopedic [...] 11/30/2008, 12/30/2006 PPSV23 07/02/2021 SARS-COV-2 (COVID-19) - [email or web address] (J&J) 05/19/2020 Td Preservative Free (TENIVAC, 07/23/2006 DECAVAC) Td, (Adult) Unspecified 07/23/2006 Tdap 06/21/2014 influenza vaccine quad 12/12/2016, 01/11/2016, 01/10/2015 (FLUZONE/FLUARIX) (6 months and older)(PF) Family History Medical History Relation Name Comments Alcohol abuse Brother True Depression Brother True Prostate cancer Brother True Coronary artery disease Father Sunil Baltazar Ha Diabetes Father Sunil Ha Hypertension Father [...] do you attend cheondoism or Never 2021 jewish services? Do you [...] or slept in a half-way (including now)? Education Answer Date Recorded What is the highest level of school Master's degree (e.g., M A, MS, 07/15/2020 you have completed or the highest Tiara, MEd, MANAGER CLINICAL RESEARCH, ODILIA) degree you have received? Sex Assigned [...] Visit Orthopedic Surgery Deon Kearns M.D. [address] [place] [address] [phone] (Wo rk) Health Maintenance Due Date [...] Completed 12/24/2021 Medical Devices Implanted Type Area R&D Engineer Device Shelf Model / Identifier Expiration Serial / Date Lot Miniplate Double Bend 10mm Spacing Hardware N/A: Posterior Depuy Synt hes 443.180 / Implanted: Qty: 3 on 12/24/2021 by Wilmer Patrick M.D. at [facility] e.g. Cervical / pins/screws /rods Sigma Post Stab.W Lug Fem Sz 5 Rt - Gallo [id number] Knee Other/Legacy - Stephen & Implanted: Qty: 1 on 12/18/2011 Implant See Implant [employer] Description: Device R&D Engineer - [employer]. Body Location - Other. Right. Device Status Text - KNEE [id number]. Cement Bone Large - Gallo [id number] Misc Other Shanna Implanted: Qty: 1 on 12/18/2011 Description: Device R&D Engineer - Stryk er Mariama.. Device Status Text [...] CDT procedure are in the results section. SC ARTL CATH/CNULA Routine 12/24/2021 12:59 Resul ts for this MONITOR PERC PM CDT procedure are i n the results section. LDA ANE Routine 12/24/2021 12:47 Results for this ENDOTRACHEAL AIRWAY PM CDT procedur e are in the results section. LAMINOPLASTY 12/24/2021 12:15 Myelopathy POSTERIOR CERVICAL PM CDT Cervical (HCC) Case Notes nozzle tender 1003 GLUCOSE POCT, B Routine 12/24/2021 11:46 Results for AM CDT this procedure are in the results section. IONM - EMG Routine 12/24/2021 9:59 Results for AM CDT this procedure are in the results section. ECG Routine 12/21/2021 11:21 Pain Low Back Results fo r AM CDT Unspecified this procedure Diabetes Mellitus are in the Type 2 With results Diabetic section. 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 hy Tendonitis Achilles Right Restless Leg Syndrome Anticoagulant Therapy Embolus Pulmonary Personal History Diabetes Mellitus Type 2 ([facility]) Depression Major Recurrent Partial Remission ([facility]) Arthroplasty Total Knee Replacement Status Post Bilateral [...] Organization Address City/State/ZIP Code Phon e Number [facility] NA (ABNORMAL) Glucose, POCT (12/28/2021 12:13 PM [...] Address City/State/ZIP Code Phon e Number POC [facility] [address] [place] [address] PCLX [facility] [place] [address] [place] POC [address] DX Cervical Spine [...] CBC without Differential (12/24/2021 8:41 PM CDT) [facility] Method Time Signature Hemoglobin 14.3 11.6 [...] Address City/State/ZIP Code Phon e Number [facility] - [address] [place] [address] [facility] [address] [facility] (ABNORMAL) Basic Metabolic Panel (12/24/2021 8:41 PM [...] Address City/State/ZIP Code Phon e Number [facility] - [address] [place] [address] [facility] [address] [place] Fluoro Less Than 1 Hour [...] M.D. IMG FLUOROSCOPY PROCEDURES Performing Organization Address City/[facility]/ZIP Code Phon e Number 152 HOS LOS [...] LAB BLOOD NON ADD-ON Performing Organization Address City/[facility]/ZIP Code Phon e Number [facility] - [address] [place], [place] [address] [place] [address] [place] [address] [address] [facility] Sodium, B (12/24/2021 2:57 PM CDT) athologist Signature Sodium, B 135 135 - 145 12/24/2021 2:58 STMA mmol/L PM CDT Specimen Anatomical Collection Method Collection Time Receive d Time (Source) Location / / Volume Laterality Blood (Blood, 12/24/2021 2:57 PM 12/25/19 2:57 Arterial Line) CDT PM CDT [place] Davis M.D. LAB BLOOD NON ADD-ON Performing Organization Address City/[facility]/ZIP Code Phon e Number [facility] - [address] [place], [place] [address] [place] [address] [facility] [address] [facility] (ABNORMAL) Blood Gas with Coox, Arterial (12/24/2021 [...] Address City/State/ZIP Code Phon e Number [facility] - [address] [place], [place] [address] [facility] [place] [address] [facility] [address] [facility] Potassium, Blood (12/24/2021 2:57 PM CDT) P athologist Signature Potassium, B 3.7 3.6 - 5.2 12/24/2021 STMA mmol/L 2:58 PM CDT Specimen Anatomical Collection Method Collection Time Receive d Time (Source) Location / / Volume Laterality Blood (Blood, 12/24/2021 2:57 PM 12/25/19 2:57 Arterial Line) CDT PM CDT [place] Davis M.D. LAB BLOOD NON ADD-ON Performing Organization Address City/[facility] Phon e Number [facility] - [address] [place], [place] [address] [place] [address] (ABNORMAL) Glucose, Whole Blood (12/24/2021 2:57 PM CDT) P athologist Signature Glucose 231 (H) 70 - 140 12/24/2021 STMA mg/dL 2:58 PM CDT Specimen Anatomical Collection Method Collection Time Receive d Time (Source) Location / / Volume Laterality Blood (Blood, 12/24/2021 2:57 PM 12/25/19 2:57 Arterial Line) CDT PM CDT [place] Davis M.D. LAB BLOOD TROPONIN Performing Organization Address City/[facility]/ZIP Code Phon e Number [facility] - 200 [place] [address] [place] [address] Calcium, Ionized (12/24/2021 2:57 PM CDT) athologist Signature Calcium, 4.85 4.65 - 5.30 12/24/2021 STMA Ionized, B mg/dL 2:58 PM CDT Specimen Anatomical Collection Method Collection Time Receive d Time (Source) Location / / Volume Laterality Blood (Blood, 12/24/2021 2:57 PM 12/25/19 2:57 Arterial Line) CDT PM CDT [place] Davis M.D. LAB BLOOD NON ADD-ON Performing Organization Address City/[facility]/ZIP Code Phon e Number [facility] - [address] [place] [address] [place] [id number] [place] [address] SC ARTL CATH/CNULA MONITOR PERC, LDA ANE ARTERIAL LINE INSERTION (12/24/2021 12:59 PM CDT) [place] Argueta M.D. - 12/24/2021 12: 59 PM CDT [...] fellow participated in the procedure, and the advertising consultant was present for the entire procedure. [...] ETT location: oral VL device: glide scope [place] scope blade size: 3 Adult tube size: [...] ? Final Report Study Number: 2 EMG Dust Collector Ore Crushing: Indra Mallory . 127 or [phone] Referred by: WILMER KEARNS (127 or [phone]) Referred for: Referral Code: ?1957 RX: 1958 [...] surg ical suite. Geri Mallory (127 or [phone])/[facility] Surgery ? Staff Minutes Start-DateTime End-DateTim e Remote Simultaneous Supervision 131 10 13:02 PM RAILWAY HEAD TENDER 12/24/2021 15:13 PM RAILWAY HEAD TENDER Remote Exclusive (1:1) Supervision 0 12/2021 00:00 AM RAILWAY HEAD TENDER 12/24/2021 00:00 AM RAILWAY HEAD TENDER In-Room Exclusive (1:1) Supervision 0 00:00 AM RAILWAY HEAD TENDER 12/24/2021 00:00 AM RAILWAY HEAD TENDER Total Monitoring Time: 131 ?? This interpretation has been electron ically signed: Indra Mallory MD at 12/24/2021 3:16:44 PM CDT Procedure Note Indra Mallory M.D. - 12/24/2021Formatt ing of this note is different from the original. 24-Dec-2021 Intraoperative Monitoring Fi nal Report Study Number: 2 EMG Dust Collector Ore Crushing: Indra Mallory . 127 or [phone] Referred by: WILMER KAERNS (127 or [phone]) Referred for: Referral Code: 1958 RX: 1958 [...] surg ical suite. Geri Mallory (127 or [phone])/[facility] Surgery Staff Minutes Start-DateTime End-DateTim e Remote Simultaneous Supervision 131 12/15 13:02 PM RAILWAY HEAD TENDER 12/24/2021 15:13 PM RAILWAY HEAD TENDER Remote Exclusive (1:1) Supervision 0 12/2021 00:00 AM RAILWAY HEAD TENDER 12/24/2021 00:00 AM RAILWAY HEAD TENDER In-Room Exclusive (1:1) Supervision 0 00:00 AM RAILWAY HEAD TENDER 12/24/2021 00:00 AM RAILWAY HEAD TENDER Total Monitoring Time: 131 This interpretation has been electron ically signed: Indra Mallory MD at 12/24/2021 3:16:44 PM CDT Wilmer Kearns M.D. NEUROLOGY ORDERABLES Performing Organization Address City/State/ZIP Code Phon e Number EMG ECG 12 Lead (12/21/2021 11:21 AM CDT) P athologist Signature Ventricular Rate 72 BPM MUSE ECG/Min SC Interval 180 ms MUSE QRSD Interval 100 ms MUSE QT Interval 382 ms MUSE QTC Interval 418 ms MUSE P Whitman 1 degrees MUSE R Whitman -16 degrees MUSE T Wave Whitman 26 degrees MUSE Specimen Anatomical Collection Method [...] C3 anterolisthesis slightly increases in flexion. Wilmer Kearns M.D. I[place] DIAGNOSTIC IMAGING PROCE DURES CT Cervical Spine without IV Contrast (12/18/2021 1:02 PM CDT) Anatomical Region Laterality Modality Cervical Spine, Neuroradiology RST LOS, N/A Computed Tomography, Computed Neuroradiology ARZ LOS, Neuroradiology T omography [facility] Specimen (Source) Anatomical Collection Method Collection [...] ultrasound is recommended if clinically appropriate. Wilmer BRAGA CT PROCEDURES 25-Hydroxyvitamin D2 and D3 (12/18/2021 [...] and its performa nce characteristics determined by [facility] in a manner consistent with CLIA requirements. This test has not been cleared or approved by the U.S. Vira d and Drug Administration. Specimen Anatomical Collection Method Collection Time Receive d Time (Source) Location / / Volume Laterality Blood (Blood, 12/18/2021 12:28 12/19/2021 7:23 Venous) PM CDT AM CDT Wilmer Kearns M.D. LAB BLOOD ADD-ON Performing Organization Address [facility] Phon e Number [facility] [address] [place], [place] [address] [facility] Laboratories - [place], [place] [phone] [place] [phone] PRATHER APTT (Activated Partial Thromboplastin Time) [...] M.D. LAB BLOOD ADD-ON Performing Organization Address City/[facility] Phon e Number [place] [address] 200 [facility] Prothrombin Time (PT) (12/18/2021 12:28 PM CDT) [...] Address City/State/ZIP Code Phon e Number [facility] - 200 [place], [place] [address] [facility] [place] [address] [facility] 200 [facility] (ABNORMAL) CBC with Differential, Blood (12/18/2021 12:28 PM CDT) [facility] Method Time Signature Hemoglobin 14.8 11.6 - [...] M.D. LAB BLOOD ADD-ON Performing Organization Address City/[facility]/ZIP Code Phon e Number [facility] - 200 [place], [place] [address] [place] [address] Type and Screen (with reflex Antibody ID) (12/18/2021 12:28 PM CDT) Patholo gist Method Time Signature ABORh O Pos Not 12/18/2021 ETRM applicable 3:16 PM CDT Antibody Negative Negative 12/18/2021 ETRM Screen 3:33 PM CDT Type & Screen 02/15/2022 12/18/2021 ETRM Expiration 23:59 3:16 PM CDT Testing [place] DEFAULT 12/18/2021 ETRM Location 12:44 PM CDT Specimen Anatomical Collection Method Collection Time Receive d Time (Source) Location / / Volume Laterality Blood (Blood, 12/18/2021 12:28 12/18/2021 Venous) PM CDT 12:44 PM CDT Wilmer Kearns M.D. LAB BLOOD BANK TEST ORDERABL ES Performing Organization Address [facility] Phon e Number [facility] - 200 [place], [place] [address] [facility] [place] [address] (ABNORMAL) Hemoglobin A1c (12/18/2021 12:28 PM [...] Address City/State/ZIP Code Phon e Number [facility] - 200 [place], [place] [address] [facility] [place] [address] [facility] 200 [facility] (ABNORMAL) Comprehensive Metabolic Panel (12/18/2021 12:28 PM [...] Address City/State/ZIP Code Phon e Number [facility] - [address] [place], [place] [address] [facility] [place] [place] [address] [facility] [address] BMD Bone Density Spine [...] Mineral Density (BMD) analysis perf ormed on Nautal with serial number [id number]. ? FINDINGS: Left Hip: Femur Neck: BMD [...] including images and graphs, is available in MyoKardia. In the absence of other causes of [...] Mineral Density (BMD) analysis perf ormed on Nautal with serial number [id number]. FINDINGS: Left Hip: Femur Neck: BMD = [...] including images and graphs, is available in MyoKardia. In the absence of other causes of [...] RST LOS, N/A Magnetic Resonance Neuroradiology [facility], Neuroradiology [facility] Specimen (Source) Anatomical Collection Method Collection [...] APRN C.N.P., M.S.N. IMG MRI PROCEDURE S from Last 3 Months Insurance Payer Benefit Plan Subscriber ID Effective Phone Address Typ e / Group Dates MEDICARE MEDICARE A [id number] 2012-Pres [address] [place] [address] BLUE CROSS BCBS BEL[place] [id number] 2012-Pres [phone] PO AGATA X Cost Share BLUE SHIELD BLUE COST ent [phone] [place] [address] Advance Directives For more information, please contact: [phone] Documents on File Type Date Recorded Patient Helmet Coverer Explanati on Advance Directives 12/17/2011 12:00 AM Legacy doc ument. See document viewer. Latest Code Status on File Code Status Date Activated Date Inactivated Comments Full Code 12/24/2021 6:31 PM 12/28/2021 5:21 PM Question Answer Comments Full Code: Discussed
--- OUTSIDE RECORDS SUMMARY | 2022-01-25 16:30 | XMS_ITS | Encounter Summary ---
:1955 Author Organization [facility] Address [address] [place] [address] Care Team Providers Name Role Phone Unavailable Primary Care Provider Unavailable Encounter Details Date Type Department Care Team Description 01/13/2022 Clinical Communication Department of Tho Heredia, Orthopedic Surgery in [place], [place] [address] [facility] [address] [place] [phone] Social History Tobacco Use Types Packs/Day Years [...] do you attend nondenominational or Never 2021 samaritan services? Do you [...] or slept in a mcc (including now)? Education Answer Date Recorded What is the highest level of school Master's degree (e.g., M A, MS, 07/15/2020 you have completed or the highest Tiara, MEd, MOTOR TESTER, ODILIA) degree you have received? Sex Assigned at Date Recorded Female 07/21/2017 2:58 PM CDT documented as of this encounter Miscellaneous Notes Telephone Encounter - Tho Heredia M.D. - 01/13/2022 3:42 PM CDT Orthopedic Spine surgery ATC contact note I received a call about this patient from a provider at [facility]. She is a 66-year-old female who [...] Heredia MD Orthopedic Spine Surgery Fellow Pager [phone] documented in this encounter Plan of Treatment Upcoming Encounters Date Type Specialty Care Team Description 02/04/2022 Office Visit Orthopedic Surgery Deon Herrera M.D. [address] [place], [place] [phone] (Wo rk) documented as of this encounter Visit Diagnoses Not on filedocumented in this encounter Additional Health Concerns Assessment Noted Time PHQ-9 Depression Total Score: 5 04/29/2016 10:10 AM ANATOLIY Reece documented as of this encounter
--- OUTSIDE RECORDS SUMMARY | 2022-01-25 16:30 | XMS_ITS | Encounter Summary ---
:1955 Author Organization [facility] Address [address] [place] [address] Care Team Providers Name Role Phone Unavailable Primary Care Provider Unavailable Reason for Referral Outpatient (Routine) - Authorized Specialty Diagnoses / Procedures Referred By Contact Refer red To Contact Orthopedic Surgery Buster Herrera [place] M.D. 200 [place] [address] Referral ID Status Reason Start Date Expiration Date Visits V isits Requested Authorized [id number] Authorized 01/18/2022 01/17/2025 1 1 Outpatient (Routine) - Authorized Specialty Diagnoses / Procedures Referred By Contact Refer red To Contact Diagnoses Arthrodesis Status Buster Herrera M.D. [address] [place], [place] [phone] Referral ID Status Reason Start Expiration Visits Visits Date Date Requested Authorized [id number] Authorized Continuity of 01/18/2022 01/18/2023 1 1 Care Reason for Visit Outpatient (Routine) - Closed Specialty Diagnoses / Procedures Referred By Contact Refer red To Contact Orthopedic Surgery Diagnoses Pain Cervical Buster Herrera [place] M.D. [address] [place] [address] Referral ID Status Reason Start Date Expiration Date Visits Requ ested Visits Authorized [id number] Closed 12/26/2021 12/25/2024 1 1 Encounter Details Date Type Department Care Team Description 01/18/2022 Office Visit Department of Buster Herrera s Status (Primary Dx); Orthopedic Surgery in S, M.D. Pain Cervical [place], [place] [address] [place] [phone] Social History Tobacco Use Types Packs/Day Years [...] completed or the highest Tiara, MEd, MANAGER VALIDATION, ODILIA) degree you have received? Sex Assigned [...] Buster Herrera M.D. CT CT Job ID: [id number] documented in this encounter Plan of Treatment Upcoming Encounters Date Type Specialty Care Team Description 02/04/2022 Office Visit Orthopedic Surgery Deon Herrera M.D. [address] [place] [phone] (Wo rk) Scheduled Referrals Name [...]
[2022-01-25 16:31] LABS: Eosinophils Absolute Auto 0.36 K/uL (0.00-0.50); Eosinophils Percent Auto 3.7 % (0.0-7.0); Hematocrit 41.7 % (33.0-51.0); Hemoglobin* 13.4 gm/dL (12.0-16.0); Immature Granulocytes Abs Auto 0.02 K/uL (0.00-0.30); Immature Granulocytes Pct Auto 0.2 %; Lymphocytes Absolute Auto 2.34 K/uL (0.90-2.90); Lymphocytes Percent Auto 24.1 % (20-44); Mean Corpuscular HGB Conc 32 gm/dL (32-36); Mean Corpuscular Hemoglobin 28 pg (26-34); Mean Corpuscular Volume 88 fL (80-100); Monocytes Percent Auto 5.8 % (0.0-11.0); Neutrophils Absolute Auto 6.34 K/uL (1.7-7.0); Neutrophils Percent Auto 65.2 % (42.0-72.0); Platelet Count* 430 K/uL (140-440); Red Blood Count 4.74 m/uL (4.00-5.20); White Blood Count* 9.72 K/uL (4.50-11.00)
--- OUTSIDE RECORDS SUMMARY | 2022-01-25 16:31 | XMS_ITS | Encounter Summary ---
:1955 Author Organization [facility] Address [address] [place] [address] Care Team Providers Name Role Phone Unavailable Primary Care Provider Unavailable Encounter Details Date Type Department Care Team Description 12/24/2021 Anesthesia Event RST ROM[facility] MAIN OR Milton Davis M.D. [address] [place] [id number] [address] [facility] Svetlana Hastings D.O. [address] [place] [address] [place] [address] Anesthesia Record Procedure Summary [...] h andoff to the receiving staff during [facility] we 1. Identified the patient [...] Chlorhexidine (Preferred); Technique: Anatomical landmarks; Inserted by: [facility]; Insertion Attempts: 1; Removal Date: 12/25/21; Removal [...] do you attend holiness or Never 2021 orthodox services? Do you [...] have completed or the highest Tiara, MEd, DIRECTOR RELIGIOUS EDUCATION, ODILIA) degree you have received? Sex Assigned at Date Recorded Female 07/21/2017 2:58 PM CDT documented as of this encounter OR Notes Anesthesia Postprocedure Evaluation - Milton Davis M.D. - 12/24/2021 4:57 PM CDT Patient: Yaz Adames Procedure Summary Date: 12/24/21 Room / Location: [place] [address] / [facility] in [place], [place] Anesthesia Start: 1241 Anesthesia Stop: 165 [...] ETT location: oral VL device: glide scope [place] scope blade size: 3 Adult tube size: [...] fellow participated in the procedure, and the real estate consultant was present for the entire procedure. Anesthesia Preprocedure Evaluation - Milton Davis M.D. - 12/24/2021 12:06 PM CDT Preprocedure Anesthesia & H&P Assessment Procedure Summary Date/Time: 12/24/21 8304 Procedure: LAMINOPLASTY POSTERIOR CERVICAL C3-7. (Spine Cervical) Diagnosis: Myelopathy Cervical (HCC) [G95.9] Pre-op diagnosis: Myelopathy Cervical (HCC) [G95.9]. Location: [address] / [facility] in [place], [place] Providers: Buster Herrera M.D. Pertinent components [...] Diabetes Mellitus Type 2 With Diabetic Neuropathy ([facility]) (+) Nodule Thyroid PSYCH (+) Depression Major [...] with patient /legal guardian or through an hand former helper. Risks/Benefits/Alternatives of Blood transfusion discussed with patient [...] Surgery Deon Herrera M.D. [address] [place] [address] [phone] (Wo rk) documented as of this encounter Procedures Procedure Name Priority Date/Time Associated Comments Diagnosis LDA ANE ARTERIAL LINE Routine 12/24/2021 12:59 Re sults for this INSERTION PM CDT procedure are i n the results section. TN ARTL CATH/CNULA Routine 12/24/2021 12:59 Resul ts for this MONITOR PERC PM CDT procedure are i n the results section. LDA ANE ENDOTRACHEAL Routine 12/24/2021 12:47 Res ults for this AIRWAY PM CDT procedure are i n the results section. documented in this encounter Results TN ARTL CATH/CNULA MONITOR PERC, LDA ANE ARTERIAL [...] fellow participated in the procedure, and the real estate consultant was present for the entire procedure. [...] ETT location: oral VL device: glide scope [place] scope blade size: 3 Adult tube size: [...]
--- OUTSIDE RECORDS SUMMARY | 2022-01-25 16:31 | XMS_ITS | Encounter Summary ---
:1955 Author Organization [facility] Address [address] [place] [address] Care Team Providers Name Role Phone Unavailable Primary Care Provider Unavailable Encounter Details Date Type Department Care Team Description 12/24/2021 Surgery RST ROMObi ROCHA OR Wilmer Kearns LAMINOPLASTY POSTERIOR [address] [facility] Flynn Lang CERVICAL C3-7. [place], [place] [address] [facility] [address] [place], [place] [phone] [address] Social History Tobacco Use Types Packs/Day Years [...] do you attend zoroastrian or Never 2021 scientology services? Do you [...] have completed or the highest Tiara, MEd, REAL ESTATE MARKETING COORDINATOR, ODILIA) degree you have received? Sex Assigned [...] PM CDT DISCHARGE SUMMARY BRIEF OVERVIEW Hospital: [facility] Discharge Provider: Wilmer Kearns M.D. [...] James T, M.D. RSTROMB OR DISCHARGE DISPOSITION Intermediate Facility OUTPATIENT FOLLOW UP For appointment details [...] recovery progresses, you may resume the elliptical security trainer. NO RUNNING or SPORTS, until we [...] for anyone undergoing this surgery. Ifyou can home health care worker, you can begin doing light desk/phone [...] Dr. Kearns's service through the [facility] boat camp operator at . THANK YOU AND GET [...] 12/18/2021 Please have [facility] at [facility] review blood glucoses at least twice weeklyto determine if changes in insulin therapy are indicated, or earlier if blood glucose values are consistently out of goal range. As Diabetes and Nutritional Education is important to your diabetes management, yearly follow up with a local Records Management Assistant and Dietitian is recommended. Please check with [...] Discharge information provided on 12/25/2021 Contact information: [facility], [address], documented in this encounter Medications [...] documented as of this encounter Progress Notes Silvana Ray D.P.T. - 12/28/2021 3:16 PM CDT 01/25/22 1549 Plan PT Plan Comments Patient discharged to another facility. Patient will continue skilled therapy services. PT goals set during this episode of care will continue to be addressed at next level of care. Adaptive equipment not needed Joseph Rojo.P.T. STACKER OPERATOR Dilshad Mendoza APRN, C.NCandyPCandy, D.N.P. - 12/28/2021 11:22 AM CDT SUBJECTIVE [...] in agreement with the plan. DCS pager [phone] will continue to follow. Call primary service for diabetes concerns between [phone]. Primary service to contact DCS via hospital boat camp operator for questions. Yanet Sanchez - 12/28/2021 [...] based on her usual exercise protocol called [employer] channel. Patient opted to perform exercise called [...] Completion Date - OT: 12/25/21 Outcome Measures [facility] Inpatient Short Form: Putting on [...] Standardized Score: 40.22 Interpretation: Clinicians answer the [facility] Inpatient Short Form based on [...] 29 min HUNTER Stauffer Associated attestation - TommypoloAdina O.T. - 12/28/2021 4:17 PM CDT This [...] bed relaxing. SW updated patient regarding accepting custodial facility. Patient reported she wouldlike a stretcher [...] be changed. Transportation will be provided by [facility] ([phone]). Transportation will be paid for by patient. Daughter was called as well who informed RUBINA that patient has a credit card with her ipad or another one in her suitcase. . Destination - Admitted Since 12/24/2021 Service Provider Selected Services Address Phone Fax Patient Preferred [facility] Intermediate [address] [facility] [address] [phone] -- Contact: Nursing Transportation oxygen: No oxygen [...] Orthopedic Spine Surgery Progress Note Orthopedic Service: [facility] Admission Day: 12/24/2021 SUBJECTIVE Mrs. Multani [...] Deltoid?? Biceps?? Triceps Wrest ext Wrist flex Cnmt Fing Abd?? R?? 5 5 5 5?? [...] time on the weekend, please contact the [facility] Orthopedic Surgery house resident transmission system operator at [phone]. Barbara Dyson, R.R.T., L.R.T. - 12/27/2021 10:34 [...] Inpatient Treatment Note SUBJECTIVE Patient's Name: Yaz JeromeSuleman Referring/Attending: Wilmer Kearns M.D. Medical Diagnosis: Myelopathy [...] needs met and questions answered. Outcome Measures [facility] Inpatient Short Form: [facility] Basic Mobility (V.2) How much help [...] Climbing 3-5 steps with a railing?: Total [facility] Basic Mobility (V.2) Raw Score: 16 -[facility] Basic Mobility (V.2) Standardized Score: 38.32 Interpretation: Clinicians answer the [facility] Inpatient Short Form based on [...] care above has been recommended for Ms. Dilcia-Multani after hospital discharge. This level of care [...] activity, Neuromuscular re-education, Gait training, Self-care/home management LACE AND TEXTILES RESTORER Visit Trackin Billing: Time Spent with Patient Therapeutic Interventions Therapeutic Activity (min): 23 min Time Tracking Total Timed Units (min): 23 min Total Treatment Time (min): 23 min Carrie Umanzor P.T.ACandy Katia Marinelli L.G.S.W., M.S.W. - 12/27/2021 1:26 [...] Selected Services Address Phone Fax Patient Preferred [facility] Pending - Request Sent N/A [address] [facility] [address] -- [facility] Pending - Request Sent N/A [address] [facility] [address] -- [facility] Pending - Request Sent N/A [address] [facility] [place] [address] [phone] -- [facility] Pending - Request Sent N/A [address] [facility] [address] -- [facility] Pending - Request Sent N/A [address] [facility] [address] -- [facility] Pending - Request Sent N/A [address] [facility] [address] -- [facility] Declined Bariatric N/A [address] [facility] [address] -- ASSESSMENT / PLAN ASSESSMENT Patient was [...] Completion Date - OT: 12/25/21 Outcome Measures [facility] Inpatient Short Form: Putting on [...] Standardized Score: 40.22 Interpretation: Clinicians answer the [facility] Inpatient Short Form based on [...] Orthopedic Spine Surgery Progress Note Orthopedic Service: [facility] Admission Day: 12/24/2021 SUBJECTIVE Mrs. Multani [...] 0700 12/26/21 0701 - 12/26/21 1900 12/26/21 1901 - 12/27/21 0632 Patient has no LDAs of requested type attached. PHYSICAL EXAM General: Lying in bed comfortably, NAD Neuro: Motor (UE) Deltoid?? Biceps?? Triceps Wrest ext Wrist flex Cnmt Fing Abd?? R?? 5 5 5 5?? [...] time on the weekend, please contact the [facility] Orthopedic Surgery house resident transmission system operator at [phone]. Barbara Dyson R.R.T., L.R.T. - 12/26/2021 10:49 [...] of thyroid cancer. Reviewed this with our program evaluation consultant Dr. Pastor who recommends that a [...] in agreement with the plan. DCS pager [phone] will continue to follow. Call primary service for diabetes concerns between [phone]. Primary service to contact DCS via hospital boat camp operator for questions. Yanet Sanchez - 12/26/2021 9:50 AM CDT Occupational Therapy Acute Hospital Inpatient Treatment SUBJECTIVE Patient's Name: Yaz Adames Referring/Attending Provider: Wlimer Kearns M.D. Medical Diagnosis: Myelopathy Cervical (HCC) [...] dressing while seated edge of bed by [facility] gown. Patient able to thread UEs [...] Completion Date - OT: 12/25/21 Outcome Measures [facility] Inpatient Short Form: Putting on [...] Standardized Score: 38.66 Interpretation: Clinicians answer the [facility] Inpatient Short Form based on [...] min Total Treatment Time (min): 26 min HNUTER Stauffer Associated attestation - Sirena Velasco O.Shanell. - 12/26/2021 1:28 PM CDT This therapist has reviewed all documentation and supervised today's session. This therapist agrees with the plan of care developed in collaboration with the patient. Abdon Gill M.D. - 12/26/2021 8:30 AM CDT Orthopedic Spine Surgery Progress Note Orthopedic Service: [facility] Admission Day: 12/24/2021 SUBJECTIVE Mrs. Mulatni had no acute events overnight. Her pain [...] - 12/24/21 1900 12/24/21 190 - 12/25/21 0700 12/25/21 0701 - 12/25/21 1900 12/25/21 190 - 12/25/21 1912 Closed/Suction Drain 1 Posterior Back Accordion 10 Fr. 60 5 PHYSICAL EXAM General: Lying in bed comfortably, NAD Neuro: Motor (UE) Deltoid?? Biceps?? Triceps Wrest ext Wrist flex Cnmt Fing Abd?? R?? 4 5 5 5?? [...] time on the weekend, please contact the [facility] Orthopedic Surgery house resident transmission system operator at [phone]. Sahra Hamilton, R.R.T., C.R.T., L.R.T. - 12/25/2021 10:42 PM CDT 12/25/212199 BPAP/CPAP Therapy BPAP/CPAP Interface Full face mask BPAP/CPAP Interface Size Medium Skin barrier Liquid-filled membrane $BPAP/CPAP Yes Ventilator Parameters Ventilator Parameters (Select Groups) BPAP/CPAP Rows BPAP/CPAP Mode Auto-CPAP NPPV EPAP (CPAP) Setting (5-15) Patient placed on PAP for the night. Electronically signed by: Sahra Hamilton R.R.T., Nick, Jose 12/25/21 10:43 PM CDT Gisell Seals Pharm.D., R.Ph. - 12/25/2021 2:30 PM CDT Images from the original note were not included. Clinical Pharmacist Progress Note Reason for admission: Yaz Adames is a 66 y.o. female admitted to [facility] on 12/24/2021 9:54 AM for cervical [...] Results from last 7 days Lab Units 10/10/204012/24/21 1457 WBC x10(9)/L 18.5* -- VBGRS HEMOGLOBIN g/dL -- 14.1 HEMOGLOBIN g/dL 14.3 -- HEMATOCRIT % 45.5* -- MCV fL 89.4 -- PLATELETS AUTO x10(9)/L 317 -- Renal: Estimated Creatinine Clearance: 111.5 mL/min (by C-G formula based on SCr of 0.69 mg/dL). Baseline SCr ~0.6-0.7 mg/dL per record review. Dialysis - NO. Days of therapy - N/A GI: Bowel regimen ordered. Last BM LACE AND TEXTILES RESTORER. Dietary Orders (From admission, onward) Start Ordered [...] new pain and bowel regimens Foster Seals PharmCandyDCandy, R.Ph. Pager: [phone] Dilshad Mendoza APRN, C.N.P., D.N.P. - 12/25/2021 [...] in agreement with the plan. DCS pager [phone] will continue to follow. Call primary service for diabetes concerns between [phone]. Primary service to contact DCS via hospital boat camp operator for questions. Tho Heredia M.D. - 12/25/2021 5:25 AM CDT Orthopedic Spine Surgery Progress Note Orthopedic Service: [facility] Admission Day: 12/24/2021 SUBJECTIVE Ms. Adames [...] 1900 12/23/21 190 - 12/24/21 0700 12/24/21 0701 - 12/24/21 1900 12/24/21 190 - 12/25/21 0613 Closed/Suction Drain 1 Posterior Back Accordion 10 Fr. 30 PHYSICAL EXAM General: Lying in bed comfortably, NAD Neuro: Motor (UE) Deltoid?? Biceps?? Triceps Wrest ext Wrist flex Cnmt Fing Abd?? R?? 4 5 4 5?? [...] time on the weekend, please contact the [facility] Orthopedic Surgery house resident transmission system operator at [phone]. Kermit Shin R.R.T., L.R.T. - 12/24/2021 11:30 PM CDT 12/24/21 2330 Ventilator Parameters BPAP/CPAP Mode Auto-CPAP O2 Flow [...] Orthopedic Spine Surgery Progress Note Orthopedic Service: [facility] Admission Day: 12/24/2021 SUBJECTIVE Seen in [...] [68-78] 72 Output by Drain (mL) 12/22/21 07 - 12/22/21 1900 12/22/21 190 - 12/23/21 0700 12/23/21 0701 - 12/23/21 1900 12/23/21 1901 - 12/24/21 0700 12/24/21 0701 - 12/24/21 1728 Requested LDAs do not have output data documented. PHYSICAL EXAM General: Lying in bed comfortably, NAD Neuro: Motor (UE) Deltoid?? Biceps?? Triceps Wrest ext Wrist flex Cnmt Fing Abd?? R?? 4 4 4 5?? [...] time on the weekend, please contact the [facility] Orthopedic Surgery house resident transmission system operator at [phone]. rodie Zuleta, Pharm.DCandy, R.Ph. - 12/24/2021 10:49 AM CDT Images from the original note were not included. Admission Medication History Note Adherence issues: No concerns Medication list source: Patient Prior to Admission Medications Med List Status: Pharmacy/RN Complete Set By: Jewels Leslie R.N. at 12/24/2021 10:19 AM Last Dose Start [...] answered allquestions. OBJECTIVE Patient remains hospitalized on [facility] [id number] A list of custodial facility options (that they geographically reside or requested) has been provided to and reviewed with patient and daughter Lia . Disclaimers: Financial disclosure provided informing patient of our ownership and financial relationship of the [facility] beds, home health, and hospice agencies. Reviewed Medicare coverage and provided a list of options. Destination - Admitted Since 12/24/2021 Service Provider Request Status Selected Services Address Phone Fax Patient Preferred [facility] Pending - Request Sent N/A [address] [facility] [phone] -- [facility] Pending - Request Sent N/A [address] [facility] [address] [phone] -- [facility] Pending - Request Sent N/A [address] [facility] [address] -- ASSESSMENT / PLAN ASSESSMENT Patient is [...] Therapy Inpatient Evaluation/Treatment SUBJECTIVE Patient's Name: Yaz Rosangela [...] lives nearby) Receives Help From: Family, Friend(s), marine fuel dock attendant (Daughter stops by for 2 hours 5x/week; CAMERA REPAIR TECHNICIAN helps with bathing 2x/week) ADL Assistance: Required assistance ADL Assistance Comments: Performs dressing and grooming tasks without assistance. Requires assistance for showers IADL/Homemaking Assistance: Required assistance IADL/Homemaking Assistance Comments: Daughter assists with cleaning, cooking, home management. Friend assists with medication management Driving: Does not drive Occupational Role: Retired Leisure Interests: Engages in seated exercise program daily Prior Mobility/Functional Transfers Level of [place]: Modified independent Gait Devices/Wheelchair Used: Other (Comment) [...] needs met and questions answered. Outcome Measures -[facility] Inpatient Short Form: -[facility] Basic Mobility (V.2) How much help [...] Climbing 3-5 steps with a railing?: Total -[facility] Basic Mobility (V.2) Raw Score: 15 -[facility] Basic Mobility (V.2) Standardized Score: 36.97 Interpretation: Clinicians answer the -[facility] Inpatient Short Form based on observed [...] program daily Prior Mobility/Functional Transfers Level of [place]: Modified independent Gait Devices/Wheelchair Used: Other (Comment) [...] Completion Date - OT: 12/25/21 Outcome Measures [facility] Inpatient Short Form: Putting on [...] Standardized Score: 38.66 Interpretation: Clinicians answer the [facility] Inpatient Short Form based on [...] HUNTER Stauffer Associated attestation - Adina Shukla OChristopher. - 12/25/2021 3:56 PM CDT This therapist [...] 12/04/21 Previous assessment done by: Adrianne Camp L.I.C.S.W., M.S.Katelyn. Primary Language: Indian Person(s) present during interview: Person(s) Present During Interview: patient History of Present Illness #1 Myelopathy Cervical (HCC) Social History Support System: children Patient's Home Environment: two/multiple story house Finance/Insurance Primary insurance: MEDICARE A AND B Secondary insurance: [employer] Does the patient have any financial concerns? no benefits: No Advance Directives Legal Decision Maker: Self Advance Directives: Power of Stallion Manager for health care Advance Directives Status: Not Activated OBJECTIVE Baseline Functional Status Baseline Activities of Daily Living Mobility: Independent Dressing: Independent Feeding: Independent Bathing: Needs assistance Grooming: Independent Toileting: Independent Behavior: Calm, Pleasant, Other (comment) (fatigued) Communication: Talks, Understands speaking, Understands Indian Shopping: Dependent Transportation: Support from family Medication Management: Independent Housekeeping: Dependent Meal Prep: Needs assistance Managing Finances: Independent Assistive Devices: Eyeglasses, Walker - four wheeled, Wheelchair - manual, Dentures Baseline Services/Resources Primary care clinic and provider: Anoop Emery from [facility] in [place] [phone] Additional Resources: NA Anticipated Needs Functional Status: Bathing, Mobility, Meal preparation, Housekeeping, Shopping, Transportation use (drive car, use taxi/bus) Anticipated Modifications to the Patient's Home: None Transportation Needs: Support from family Does the patient need discharge transport arranged?: No Ride and Caregiver Arranged: Yes Ride Caregiver Provider: Lia Moscoso Phone Number for Ride/Caregiver: [phone] Anticipated Discharge Destination: Intermediate Facility ASSESSMENT / PLAN Assessment: The preschool program director met with Yaz Adames to discuss her [...] have previously been completed by patient's daughter. preschool program director discussed the patient's potential needs at dismissal based on their home setting, previous needs and responsibilities, homebound status, and relevant assessmentswith the patient. Support will be provided by patient's daughter. The patient demonstrated understanding when discussing her home going plans and anticipated needs. Patient expressed wanting to go to a rehab facility upon discharge. Yaz has requested admission to [facility] in [place], [place] ([phone]) as her first choice. Patient also identifies [facility] ([phone]) or [facility] ([phone]) as alt ernative options for SNF admission. Physical and occupational therapy have yet to evaluate the patient so preschool program director will await their recommendations for further discharge [...] the same level. At this time, the preschool program director will await physical and occupational therapy's recommendations to assess if a rehab facility would be feasible, as this is the patient's preferred discharge plan. After reviewing the patient's chart and meeting with the patient, the preschool program director deemed the LACE+/readmission questions were not necessary. [...] dismissal will be provided by family--Lia . preschool program director recommended private pay home services such as housekeeping, assistance with ADLs, private caregivers, Life Alert services, etc. and reaching out to family, friends, and neighbors for assistance. preschool program director provided information regarding the dismissal process. preschool program director placed or requested the following hospital-based consult orders and/or referrals: None. preschool program director will continue to assess for homegoing needs with the interdisciplinary team. preschool program director encouraged the patient to reach out with any questions/concerns. Signed by: Ashley Crowder R.N. 12/25/2021 Yaneth Lanier APRN, C.NCandyP. - 12/24/2021 11:26 AM CDTAssociated Order(s): Diabetes [...] mg, 2 tablets twice daily. Last dose: 12/23 am. DIABETES COMPLICATIONS Neuropathy - peripheral. CO-MORBIDITIES [...] Thank you for the consult. DCS pager [phone] will follow. Call primary service for diabetes concerns between [phone]. Primary service to contact DCS via hospital boat camp operator for questions. documented in this encounter [...] with all her belongings to go to [facility]. Svetlana Núñez R.N. - 12/26/2021 6:20 AM [...] see Anesthesia record Specimens: none Complications: none [facility] / [id number] 66 y.o. female now s/p laminoplasty C3-C7 [...] 3:40 PM CDT SURGEON: Dr. Wilmer Kearns. MACHINE TURNER: Dr. Tho Heredia. PRE-OPERATIVE DIAGNOSIS Progressive cervical [...] Obstructive sleep apnea. Restless legs syndrome. A cutting table operator first actively participated in one or more of [...] by Social Work to start working on custodial facility placement. I anticipate discharge to a custodial facility in 3-4 nights. TPR: 2, Decompression and laminoplasty Wilmer Kearns M.D. CT CT Job ID: [id number] documented in this encounter Miscellaneous Notes Hospital [...] Orthopedic Surgery Deon Kearns M.D. [address] [place] [address] [phone] (Wo rk) Scheduled Referrals Name Type [...] CERVICAL PM CDT Cervical (HCC) Case Notes veterinary technician 1003 GLUCOSE POCT, B Routine 12/24/2021 [...] Address City/State/ZIP Code Phon e Number POC [facility] [address] [place] [address] [facility] [place] [address] [place] [facility] [address] (ABNORMAL) Glucose, POCT (12/28/2021 7:41 AM CDT) Analysis Performed At Patho logis Time Signature Glucose, POCT, 226 (H) 70 [...] Provider LAB POCT ORDERABLES-MANUAL Performing Organization Address City/[facility] Phon e Number POC [facility] [address] [place] [address] [place] [address] [place] [facility] [address] (ABNORMAL) Glucose, POCT (12/28/2021 3:15 AM CDT) Analysis Performed At Path logis Time Signature Glucose, POCT, 181 (H) 70 [...] Provider LAB POCT ORDERABLES-MANUAL Performing Organization Address City/[facility] Phon e Number POC [facility] [address] [place] [address] [place] [address] [place] [facility] [address] (ABNORMAL) Glucose, POCT (12/27/2021 9:01 PM CDT) Analysis Performed At Patho logis Time Signature Glucose, POCT, 168 (H) 70 - 140 12/27/2021 [facility] B mg/dL 9:12 PM CDT Site Capillary 12/27/2021 [facility] 9:12 PM CDT Specimen Anatomical Collection Method Collection Time Receive d Time (Source) Location / / Volume Laterality Blood 12/27/2021 9:01 PM 2 9:12 CDT PM CDT Unknown Provider LAB POCT ORDERABLES-MANUAL Performing Organization Address City/State/ZIP Code Phon e Number POC [facility] [address] [place] [address] [place] [address] [place] [facility] [address] (ABNORMAL) Glucose, [...] Provider LAB POCT ORDERABLES-MANUAL Performing Organization Address City/[facility]/ZIP Code Phon e Number POC [facility] [address] [place] [address] [place] [address] [place] [facility] [address] (ABNORMAL) Glucose, [...] Provider LAB POCT ORDERABLES-MANUAL Performing Organization Address City/[facility]/ZIP Code Phon e Number POC [facility] [address] [place] [address] [place] [address] [place] [facility] [address] (ABNORMAL) Glucose, POCT (12/27/2021 7:46 AM CDT) [...] Provider LAB POCT ORDERABLES-MANUAL Performing Organization Address City/[facility] Code Phon e Number [facility] [address] [place] [address] [place] [address] [place] [facility] [address] [facility] (ABNORMAL) Glucose, POCT (12/27/2021 2:32 [...] Provider LAB POCT ORDERABLES-MANUAL Performing Organization Address City/[facility] Phon e Number POC [facility] [address] [place] [address] [place] [address] [place] [facility] 200 [facility] (ABNORMAL) Glucose, POCT (12/26/2021 9:20 [...] Address City/State/ZIP Code Phon e Number POC [facility] [address] [place] [address] [place] [address] [place] [facility] [address] (ABNORMAL) Glucose, [...] Provider LAB POCT ORDERABLES-MANUAL Performing Organization Address City/[facility] Phon e Number [facility] [address] [place] [address] [place] [address] [place] [facility] [address] [facility] (ABNORMAL) Glucose, POCT (12/26/2021 12:37 PM [...] Provider LAB POCT ORDERABLES-MANUAL Performing Organization Address City/[facility] Phon e Number [facility] [address] [place] [address] [place] [address] [place] [facility] [address] (ABNORMAL) Glucose, POCT (12/26/2021 7:50 AM CDT) [...] Provider LAB POCT ORDERABLES-MANUAL Performing Organization Address City/[facility] Phon e Number [facility] [address] [place] [address] [place] [address] [place] [facility] [address] [facility] (ABNORMAL) Glucose, POCT (12/26/2021 1:13 AM CDT) Analysis Performed At [employer] Time Signature Glucose, POCT, 221 (H) 70 [...] Provider LAB POCT ORDERABLES-MANUAL Performing Organization Address City/[facility] Phon e Number [facility] [address] [place] [address] [place] [address] [place] [facility] [address] [facility] (ABNORMAL) Glucose, POCT (12/25/2021 9:21 PM [...] Provider LAB POCT ORDERABLES-MANUAL Performing Organization Address City/[facility]/ZIP Code Phon e Number [facility] [address] [place] [address] [place] [address] [place] [facility] [address] (ABNORMAL) Glucose, POCT [...] Provider LAB POCT ORDERABLES-MANUAL Performing Organization Address City/[facility] Phon e Number [facility] [address] [place] [address] [place] [address] [place] [facility] [address] [facility] (ABNORMAL) Glucose, POCT (12/25/2021 11:45 AM [...] Provider LAB POCT ORDERABLES-MANUAL Performing Organization Address City/[facility] Phon e Number [facility] [address] [place] [address] [place] [address] [place] [facility] [address] (ABNORMAL) Glucose, POCT (12/25/2021 8:56 AM CDT) [...] Provider LAB POCT ORDERABLES-MANUAL Performing Organization Address City/[facility]/ZIP Code Phon e Number [facility] [address] [place] [address] [place] [address] [place] [facility] [address] (ABNORMAL) Glucose, [...] Provider LAB POCT ORDERABLES-MANUAL Performing Organization Address City/[facility] Phon e Number [facility] [address] [place] [address] [place] [address] [place] [facility] [address] Glucose, POCT [...] Provider LAB POCT ORDERABLES-MANUAL Performing Organization Address City/[facility]/ZIP [facility] [place] [facility] [address] [place] [address] [place] [address] [place] [facility] [address] Glucose, POCT (12/25/2021 5:57 AM CDT) athologist Signature Glucose, POCT, 110 70 - 140 12/25/2021 [facility] B mg/dL 6:01 AM CDT Specimen Anatomical Collection Method Collection Time Receive d Time (Source) Location / / Volume Laterality Blood 12/25/2021 5:57 AM 6:01 CDT AM CDT Unknown Provider LAB POCT ORDERABLES-MANUAL Performing Organization Address City/State/ZIP Code Phon e Number [facility] [address] [place] [address] [facility] [place] [address] [place] [facility] [address] [facility] DX Cervical Spine 2-3 Views (12/25/2021 5:39 [...] of C2 on C3. Abdon Gill M.D. [facility] DIAGNOSTIC IMAG[facility] PROCE DURES Glucose, POCT (12/25/2021 4:49 AM CDT) athologist Signature Glucose, POCT, 131 70 - 140 12/25/2021 [facility] B mg/dL 4:52 AM CDT Specimen Anatomical Collection Method Collection Time Receive d Time (Source) Location / / Volume Laterality Blood 12/25/2021 4:49 AM 2 4:53 CDT AM CDT Unknown Provider LAB POCT ORDERABLES-MANUAL Performing Organization Address City/[facility]/ZIP Code Phon e Number [facility] [address] [place] [address] [place] [address] [place] [facility] [address] (ABNORMAL) Glucose, [...] Provider LAB POCT ORDERABLES-MANUAL Performing Organization Address City/[facility] Phon e Number [facility] [address] [place] [address] [place] [address] [place] [facility] [address] (ABNORMAL) Glucose, POCT (12/25/2021 2:38 AM CDT) P athologist Signature Glucose, POCT, 255 (H) 70 - 140 12/25/2021 [facility] B mg/dL 2:41 AM CDT Specimen Anatomical Collection Method Collection Time Receive d Time (Source) Location / / Volume Laterality Blood 12/25/2021 2:38 AM 2 2:41 CDT AM CDT Unknown Provider LAB POCT ORDERABLES-MANUAL Performing Organization Address City/[facility]/ZIP [facility] Phon e Number [facility] [address] [place] [address] [place] [address] [place] [facility] [address] (ABNORMAL) Glucose, POCT (12/25/2021 1:47 AM CDT) P athologist Signature Glucose, POCT, 282 (H) 70 - 140 12/25/2021 [facility] B mg/dL 1:49 AM CDT Specimen Anatomical Collection Method Collection Time Receive d Time (Source) Location / / Volume Laterality Blood 12/25/2021 1:47 AM 1:49 CDT AM CDT Unknown Provider LAB POCT ORDERABLES-MANUAL Performing Organization Address City/[facility]/ZIP Code Phon e Number [facility] [address] [place] [address] [place] [address] [place] [facility] [address] [facility] (ABNORMAL) Glucose, POCT (12/25/2021 12:44 AM CDT) P athologist Signature Glucose, POCT, 283 (H) 70 - 140 12/25/2021 [facility] B mg/dL 1:49 AM CDT Specimen Anatomical Collection Method Collection Time Receive d Time (Source) Location / / Volume Laterality Blood 12/25/2021 12:44 12/25/2021 1:49 AM CDT AM CDT Unknown Provider LAB POCT ORDERABLES-MANUAL Performing Organization Address City/[facility] Phon e Number [facility] [address] [place] [address] [place] [address] [place] [facility] [address] [facility] (ABNORMAL) Glucose, POCT (12/24/2021 11:45 PM CDT) P athologist Signature Glucose, POCT, 215 (H) 70 - 140 12/24/2021 [facility] B mg/dL 11:53 PM CDT Specimen Anatomical Collection Method Collection Time Receive d Time (Source) Location / / Volume Laterality Blood 12/24/2021 11:45 12/24/2021 PM CDT 11:53 PM CDT Unknown Provider LAB POCT ORDERABLES-MANUAL Performing Organization Address City/[facility] Phon e Number [facility] [address] [place] [address] [place] [address] [place] [facility] [address] (ABNORMAL) Glucose, [...] LAB POCT ORDERABLES-MANUAL Performing Organization Address City/State/ZIP [facility] Phon e Number [facility] [address] [place] [address] [place] [address] [place] [address] (ABNORMAL) Glucose, POCT (12/24/2021 9:42 PM CDT) P athologist Signature Glucose, POCT, 165 (H) 70 - 140 12/24/2021 [facility] B mg/dL 9:49 PM CDT Specimen Anatomical Collection Method Collection Time Receive d Time (Source) Location / / Volume Laterality Blood 12/24/2021 9:42 PM 2 9:49 CDT PM CDT Unknown Provider LAB POCT ORDERABLES-MANUAL Performing Organization Address [facility] Phon e Number [facility] [address] [place] [address] [place] [address] [place] [facility] [address] (ABNORMAL) Glucose, [...] Address City/State/ZIP Code Phon e Number [facility] [address] [place] [address] [facility] [place] [address] (ABNORMAL) CBC without Differential (12/24/2021 8:41 PM [...] 22 9:23 Venous) CDT PM CDT Abdon Gill M.D. LAB BLOOD ADD-ON Performing Organization Address City/State/ZIP Code Phon e Number [facility] - [address] [place] [address] [facility] [place] [address] [facility] (ABNORMAL) Basic Metabolic Panel (12/24/2021 8:41 PM [...] Organization Address City/State/ZIP Code Phon e Number [facility] - [address] [place], [place] [address] [facility] [place], [place] [address] [place] [address] (ABNORMAL) Glucose, POCT (12/24/2021 [...] Address City/State/ZIP Code Phon e Number [facility] [address] [place] [address] [facility] [place] [address] [facility] [address] (ABNORMAL) Glucose, POCT (12/24/2021 6:41 PM CDT) P athologist Signature Glucose, POCT, 163 (H) 70 - 140 12/24/2021 [facility] B mg/dL 7:30 PM CDT Specimen Anatomical Collection Method Collection Time Receive d Time (Source) Location / / Volume Laterality Blood 12/24/2021 6:41 PM 2 7:30 CDT PM CDT Unknown Provider LAB POCT ORDERABLES-MANUAL Performing Organization Address City/State/ZIP Code Phon e Number [facility] [address] [place] [address] [place] [address] [place] [facility] [address] [facility] (ABNORMAL) Glucose, POCT (12/24/2021 5:35 PM [...] Provider LAB POCT ORDERABLES-MANUAL Performing Organization Address City/[facility]/ZIP Code Phon e Number [facility] [address] [place] [address] [place] [address] [place] [facility] [address] [facility] (ABNORMAL) Glucose, POCT (12/24/2021 4:33 PM [...] Code Phon e Number [facility] [address] [place] [address] [place] [address] [facility] [address] [facility] Fluoro Less Than 1 Hour (12/24/2021 3:22 [...] City/[facility]/ZIP Code Phon e Number [facility] - [address] [place], [place] [address] [place] [address] [facility] [address] (ABNORMAL) Glucose, [...] City/[facility]/ZIP Code Phon e Number [facility] - [address] [place], [place] [address] [place] [address] [place] [address] [facility] Potassium, Blood (12/24/2021 2:57 PM CDT) athologist [...] City/[facility]/ZIP Code Phon e Number [facility] [address] [place], [place] [address] [place] [address] [facility] [address] [facility] Sodium, B (12/24/2021 2:57 PM CDT) athologist [...] City/State/ZIP Code Phon e Number [facility] - [address] [place] [place] [address] [facility] [place] [address] [facility] [address] [facility] Calcium, Ionized (12/24/2021 2:57 PM CDT) [...] City/State/ZIP Code Phon e Number [facility] - [address] (ABNORMAL) Blood Gas with Coox, Arterial [...] City/State/ZIP Code Phon e Number [facility] - [address] [place] [address] (ABNORMAL) Glucose, POCT (12/24/2021 2:16 PM [...] City/State/ZIP Code Phon e Number [facility] [address] [place], [place] [address] [place] [address] [place] [facility] [address] [place] [address] (ABNORMAL) Glucose, POCT (12/24/2021 11:46 AM CDT) [...] Provider LAB POCT ORDERABLES-MANUAL Performing Organization Address City/[facility] Phon e Number [facility] [address] [place] [address] [place] [address] [place] [facility] [address] [facility] IONM - EMG (12/24/2021 9:59 AM CDT) Specimen (Source) Anatomical Collection Method Collection Time Re ceived Time Location / / Volume Laterality 12/24/2021 10:00 AM CDT Narrative [facility] - 12/24/2021 3:40 PM CDT Table formatting from the original result was not included. 24-Dec-2021 ? Intraopera tive Monitoring ? Final Report Study Number: 2 EMG Premises Technician: Indra Mallory . [phone] or [phone] Referred by: WILMER KEARNS ([phone] or [phone]) Referred for: Referral Code: ?1957 RX: 1958 [...] surg ical suite. Geri Mallory ([phone] or [phone])/[facility] Surgery ? Staff Minutes Start-DateTime End-DateTim e Remote Simultaneous Supervision 131 12/15 13:02 PM HAY STACKER OPERATOR 12/24/2021 15:13 PM HAY STACKER OPERATOR Remote Exclusive (1:1) Supervision 0 12/2021 00:00 AM HAY STACKER OPERATOR 12/24/2021 00:00 AM HAY STACKER OPERATOR In-Room Exclusive (1:1) Supervision 0 00:00 AM HAY STACKER OPERATOR 12/24/2021 00:00 AM HAY STACKER OPERATOR Total Monitoring Time: 131 ?? This interpretation has been electron ically signed: Indra Mallory MD at 12/24/2021 3:16:44 PM CDT Procedure Note Indra Mallory M.D. - 12/24/2021Formatt ing of this note is different from the original. 24-Dec-2021 Intraoperative Monitoring Fi nal Report Study Number: 2 EMG Premises Technician: Indra Mallory . [phone] or [phone] Referred by: WILMER KEARNS ([phone] or [phone]) Referred for: Referral Code: 1958 RX: 1957 [...] surg ical suite. Geri Mallory (127 or [phone])/[facility] Surgery Staff Minutes Start-DateTime End-DateTim e Remote Simultaneous Supervision 131 12/15 13:02 PM HAY STACKER OPERATOR 12/24/2021 15:13 PM HAY STACKER OPERATOR Remote Exclusive (1:1) Supervision 0 12/2021 00:00 AM HAY STACKER OPERATOR 12/24/2021 00:00 AM HAY STACKER OPERATOR In-Room Exclusive (1:1) Supervision 0 00:00 AM HAY STACKER OPERATOR 12/24/2021 00:00 AM HAY STACKER OPERATOR Total Monitoring Time: 131 This interpretation has been electron ically signed: Indra Mallory MD at 12/24/2021 3:16:44 PM CDT Wilmer Kearns M.D. NEUROLOGY ORDERABLES Performing Organization Address City/State/ZIP Code Phon e Number [facility] documented in this encounter Visit Diagnoses [...] subcutaneous, Every 24 hours, First dose on Dorcas 12/27/21 at 0200, Insulin Scale: Mild Correction Scale, [...] Lower Abdomen magnesium hydroxide suspension 30 mL (DE LK OF MAGNESIA) 30 mL, oral, Daily [...] (TYLENOL) 0803 (Given - Provider: Ketan Alfaro RJose Cruz.)1245 (Given - Provider: Ketan Alfaro R.N.)1713 (Given - Provider: Burton CarvalhoN.)2122 (Given - Provider: Francie Pritchett RCandyN.) 0808 (Given - Provider: Jenni Bettencourt R.N.)1137 (Not Given - Provider: Yesenia Hawk R.N. - Reason: See Provider Order)1701 (Given - Provider: Toyin Wagner R.N.)2056 (Given - Provider: Toyin Wagner R.N.) 0843 (Given - Provider: Lala Rivers R.N.)1327 [...] (CANCELED) 0810 (Given - Provider: Ketan Alfaro RCandyN .)1242 (Given - Provider: Burton YanceyNCandy) 0-20 Units, subcutaneous, 3 times daily with meals, First dose on Fri12/25/21 at 0845, Simple or Complex Ratio: Simple, Carb Ratio - Simple (1 unit per __ grams of carbohydrates): 10 insulin aspart U-100 (Carbohydrate Count ) injection 0-20 Units (NovoLOG FlexPen) 1742 (Given - Provider: Ranjana Roman RCandyN.) 0917 (G iven - Provider: Ang Lopez RCandyNCandy)1341 (Given - Provider: Yesenia Hawk RLiss)1802 (Given - Provider: Toyin Wagner RCandyNCandy) 0837 (Given - Provider: Lala Rivers R.N.)1330 [...] RCandyNCandy) 0758 (Given - Provider: Jenni Bettencourt R.N. [...] 2120 (Not Given - Provider: Francie Pritchett RCandyNCandy - Reason: Order parameters not met) 2101 (Not Given - Provider: Toyin Wagner R.N. - Reason: Order parameters not met - [...] 0835 (G iven - Provider: Ketan Alfaro RCandyNCandy) 20 Units, subcutaneous, Every morning, F irst dose (after last modification) on Fri12/26/21 at 0900 insulin glargine injection 22 Units 0816 (Given - Provider: Jenni Bettencourt RCandyN.) 0853 (Given - Provider: Lala Rivers R.N.) 22 Units, subcutaneous, Every morning, F irst dose (after last modification) on Fri12/27/21 at 0900 polyethylene glycol powder packet 17 g (MIRALAX) 0804 (Given - Provider: Ketan Alfaro RCandyN.) 0810 (Not Given - Provider: Jenni plascencia R.NCandy - Reason: Patient/family refused)1137 (Given - Provider: Yesenia Hawk R.N.) 0842 (Given - Provider: Lala Rivers R.NCandy) 17 g, oral, Daily, First dose on [...] R.N.)2121 (Given - Provider: Francie Pritchett R.N.) 0810 (Given - Provider: Jenni Bettencourt R.N.)2056 (Given - Provider: Toyin Wagner R.N.) 0843 (Given - Provider: Lala Rivers R.N.) 1 tablet, oral, 2 times daily, First dos e on Fri12/24/21 at 2100, For constipation. Hold for diarrhea. venlafaxine XR 24 hr capsule 225 mg (EFFEXOR-XR) 0803 (Given - Provider: Ketan Alfaro R.N.) 0809 (Given - Provider: Jenni Bettencourt RLiss) 0842 (Given - Provider: Lala Rivers [...] 0536 (Given - Prov ider: Francie Pritchett RCandyNCandy) 5 mg, oral, 3 times daily PRN, [...] 1) 0312 (Given - Provider: Svetlana Núñez RLiss)0800 (Given - Provider: Ketan Alfaro R.N.)1247 (Not Given - Provider: Ketan Alfaro R.N. - Reason: Patient/family refused)1313 (See Alternative - Provider: Ketan Alfaro R.N.) 0233 (Given - Provider: Francie Pritchett RCandyNCandy)0755 (Given - Provider: Jenni Bettencourt R.N.) 0048 [...] hours 1852 (Given - Provider: Ranjana Roman RCandyNCandy) oxyCODONE IR tablet 5 mg (ROXICODONE)(Linked Group 1) 0312 (See Alternative - Provider: Svetlana Núñez RLiss)0800 (See Alternative - Provider: Ketan Alfaro R.N.)1247 (See Alternative - Provider: Ketan Alfaro R.N.)1313 (Given - Provider: Burton YanceyN.) 0233 (See Alternative - Provider: Francie Pritchett RCandyNCandy)0755 (See Alternative - Provider: Jenni Bettencourt R.N.) [...]
--- OUTSIDE RECORDS SUMMARY | 2022-01-25 16:31 | XMS_ITS | Encounter Summary ---
:1955 Author Organization [facility] Address [address] [place] [address] Care Team Providers Name Role Phone Unavailable Primary Care Provider Unavailable Reason for Referral Outpatient (Routine) - Authorized Specialty Diagnoses / Procedures Referred By Contact Refer red To Contact Orthopedic Surgery Cathy Kelley Rochest Van DUMAS, C.N.P. [address] [place] [phone] Referral ID Status Reason Start Date Expiration Date Visits V isits Requested Authorized [id number] Authorized 12/27/2021 12/26/2024 1 1 Scheduling Instructions There will be imaging and testing relate d to this appointment utpatient (Routine) - Authorized Specialty Diagnoses / Procedures Referred By Contact Refer red To Contact Orthopedic Surgery Cathy Kelley [facility] Van DUMAS, C.N.P. [address] [place] [phone] Referral ID Status Reason Start Date Expiration Date Visits V isits Requested Authorized [id number] Authorized 12/27/2021 12/26/2024 1 1 Scheduling Instructions This visit will be with a member of Dr. Kearns's care team/ARNIE Encounter Details Date Type Department Care Team Description 12/24/2021 - Hospital Encounter [facility] Javier, Myelopath y Cervical (HCC) (Primary Dx); 12/28/2021 [facility] Aguilar M.D. 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 Do you [...] have completed or the highest Tiara, MEd, RESIDENTIAL TREATMENT SPECIALIST, ODILIA) degree you have received? Sex [...] PM CDT DISCHARGE SUMMARY BRIEF OVERVIEW Hospital: [facility] Discharge Provider: Wilmer Kearns M.D. Primary Team: [...] James T, M.D. RSTROMB OR DISCHARGE DISPOSITION Snf Facility OUTPATIENT FOLLOW UP For appointment details refer to your Patient Appointment Guide. TEST RESULTS PENDING AT DISCHARGE Pending Labs None DETAILS OF HOSPITAL STAY REASON FOR ADMISSION Myelopathy Cervical (HCC) HOSPITAL COURSE Surgery Information This Encounter Past Procedures (12/25/2020 to Today) Date Procedures Providers Location 12/24/2021 LAMINOPLASTY POSTERIOR CERVICAL C3-7. Wilmer Kearns M.D.Tho Heredia M.D. 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 NO RUNNING or SPORTS, until we [...] for anyone undergoing this surgery. Ifyou can monitor worker, you can begin doing light desk/phone [...] may contact Dr. Kearns's service through the [facility] remote computer terminal operator at . THANK YOU AND GET [...] 12/18/2021 Please have Provider of Care at alf facility review blood glucoses at least twice weeklyto determine if changes in insulin therapy are indicated, or earlier if blood glucose values are consistently out of goal range. As Diabetes and Nutritional Education is important to your diabetes management, yearly follow up with a local Wheel Polisher and Dietitian is recommended. Please check with your insurance company asdiabetes education visits are commonly covered. Your primary care provider can provide referrals foreducation. Discharge Instr - Adina iWlks O.T. - 12/25/2021 3:49 PM CDT Occupational [...] Discharge information provided on 12/25/2021 Contact information: [facility], 5 [place], documented in this encounter Medications [...] Pen Needle) total) daily. 31 gauge x 16 needle valACYclovir (VALTREX) 500 0 1 mg [...] level of care. Adaptive equipment not needed Wil RojoPCandyT. DRY PATTERNMAKER Dilshad Mendoza APRN, C.N.PCandy, D.N.P. - 12/28/2021 11:22 AM CDT SUBJECTIVE [...] in agreement with the plan. DCS pager [phone] will continue to follow. Call primary service for diabetes concerns between [phone]. Primary service to contact DCS via hospital remote computer terminal operator for questions. Yanet Sanchez Deb - 12/28/2021 10:35 AM CDT Occupational Therapy [...] based on her usual exercise protocol called [employer] channel. Patient opted to perform exercise called [...] Standardized Score: 40.22 Interpretation: Clinicians answer the AM-[facility] Inpatient Short Form based on observed [...] bed relaxing. SW updated patient regarding accepting alf facility. Patient reported she wouldlike a stretcher [...] be changed. Transportation will be provided by [employer] ([phone]). Transportation will be paid for by patient. Daughter was called as well who informed SW that patient has a credit card with her ipad or another one in her suitcase. . Destination - Admitted Since 12/24/2021 Service Provider Selected Services Address Phone Fax Patient Preferred [facility] Snf [address] [place] [address] [phone] -- Contact: Nursing Transportation oxygen: No oxygen [...] Orthopedic Spine Surgery Progress Note Orthopedic Service: [facility] Admission Day: 12/24/2021 SUBJECTIVE Mrs. Multani [...] 0700 12/27/21 0701 - 12/27/21 1900 12/27/21 1901 - 12/28/21 0529 Patient has no LDAs of requested type attached. PHYSICAL EXAM General: Lying in bed comfortably, NAD Neuro: Motor (UE) Deltoid?? Biceps?? Triceps Wrest ext Wrist flex Bioinformatics Research Technician Fing Abd?? R?? 5 5 5 5?? [...] am until 6 pm, please page Javier crzu. If outside of 06:00 - 18:00 on weekdays or any time on the weekend, please contact the [facility] Orthopedic Surgery house resident material control supervisor at [phone]. Barbara Dyson, R.R.T., L.R.T. - 12/27/2021 10:34 [...] Inpatient Treatment Note SUBJECTIVE Patient's Name: Yaz Adames Referring/Attending: Wilmer Kearns M.D. 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 - 12/27/2021 1:26 PM CDT SUBJECTIVE [...] Selected Services Address Phone Fax Patient Preferred [facility] Pending - Request Sent N/A [address] [facility] [address] -- [facility] Pending - Request Sent N/A [address] [facility] [address] [phone] -- [facility] Pending - Request Sent N/A [address] [facility] [address] [facility] [phone] -- [facility] Pending - Request Sent N/A [address] [facility] [address] -- [facility] Pending - Request Sent N/A [address] [facility] [phone] -- [facility] Pending - Request Sent N/A [address] [facility] [address] -- [facility] Declined Bariatric N/A [address] [facility] [phone] -- ASSESSMENT / PLAN ASSESSMENT Patient was [...] Completion Date - OT: 12/25/21 Outcome Measures [facility] Inpatient Short Form: Putting on and taking [...] Standardized Score: 40.22 Interpretation: Clinicians answer the [facility] Inpatient Short Form based on observed [...] Orthopedic Spine Surgery Progress Note Orthopedic Service: [facility] Admission Day: 12/24/2021 SUBJECTIVE Mrs. Multani [...] Deltoid?? Biceps?? Triceps Wrest ext Wrist flex Bioinformatics Research Technician Fing Abd?? R?? 5 5 5 5?? [...] time on the weekend, please contact the [facility] Orthopedic Surgery house resident material control supervisor at [phone]. Barbara Dyson R.R.T., L.R.T. - 12/26/2021 10:49 PM CDT 12/26/21 7052 BPAP/CPAP Therapy BPAP/CPAP Interface Full face mask [...] needed. Electronically signed by: Barbara Dyson R.R.T., AdityaRCandyT. 12/26/21 10:50 PM CDT Dilshad Mendoza APRN, [...] of thyroid cancer. Reviewed this with our sharepoint consultant Dr. Pastor who recommends that a [...] in agreement with the plan. DCS pager [phone] will continue to follow. Call primary service for diabetes concerns between [phone]. Primary service to contact DCS via hospital remote computer terminal operator for questions. Yanet Sanchez - 12/26/2021 [...] Completion Date - OT: 12/25/21 Outcome Measures [facility] Inpatient Short Form: Putting on and taking [...] Standardized Score: 38.66 Interpretation: Clinicians answer the [facility] Inpatient Short Form based on observed [...] Orthopedic Spine Surgery Progress Note Orthopedic Service: [facility] Admission Day: 12/24/2021 SUBJECTIVE Mrs. Multani [...] Rate: [68-93] 93 Output by Drain (mL) 12/23/21700 - 12/23/21 1900 12/23/211900 - 12/24/21 0712/24/21 07 - 12/24/21 1900 12/24/211900 - 12/25/21 0712/25/21700 - 12/25/21189912/25/211900 - 12/25/211911 Closed/Suction Drain 1 Posterior Back Accordion 10 Fr. 60 5 PHYSICAL EXAM General: Lying in bed comfortably, NAD Neuro: Motor (UE) Deltoid?? Biceps?? Triceps Wrest ext Wrist flex Bioinformatics Research Technician Fing Abd?? R?? 4 5 5 5?? [...] time on the weekend, please contact the [facility] Orthopedic Surgery house resident material control supervisor at [phone]. Sahra Hamilton R.R.T., C.R.T., L.R.T. - 12/25/2021 10:42 PM CDT 12/25/210 BPAP/CPAP Therapy BPAP/CPAP Interface Full face mask BPAP/CPAP Interface Size Medium Skin barrier Liquid-filled membrane $BPAP/CPAP Yes Ventilator Parameters Ventilator Parameters (Select Groups) BPAP/CPAP Rows BPAP/CPAP Mode Auto-CPAP NPPV EPAP (CPAP) Setting (5-15) Patient placed on PAP for the night. Electronically signed by: Tatum LoaizaT., C.R.T., L.R.T. 12/25/21 10:43 PM CDT Gisell Seals, PharmCandyD., R.Ph. - 12/25/2021 2:30 PM CDT Images from the original note were not included. Clinical Pharmacist Progress Note Reason for admission: Yaz Adames is a 66 y.o. female admitted to [facility] on 12/24/2021 9:54 AM for cervical [...] N/A GI: Bowel regimen ordered. 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 Dietary Orders (From admission, onward) Start Ordered [...] new pain and bowel regimens Foster Seals PharmCandyD., R.Ph. Pager: [phone] Dilshad Mendoza APRN, C.N.PCandy, D.N.P. - 12/25/2021 11:58 AM CDT [...] Diet Adult Diet Regular starting at 12/24 1832 VITALS Temperature: 36.7 ??C Heart Rate: 73 [...] in agreement with the plan. DCS pager [phone] will continue to follow. Call primary service for diabetes concerns between [phone]. Primary service to contact DCS via hospital remote computer terminal operator for questions. Tho Heredia M.D. - 12/25/2021 5:25 AM CDT Orthopedic Spine Surgery Progress Note Orthopedic Service: [facility] Admission Day: 12/24/2021 SUBJECTIVE Ms. Adames [...] Deltoid?? Biceps?? Triceps Wrest ext Wrist flex Bioinformatics Research Technician Fing Abd?? R?? 4 5 4 5?? [...] time on the weekend, please contact the [facility] Orthopedic Surgery house resident material control supervisor at [phone]. Kermit Shin R.R.T., Felicitas.R.T. - 12/24/2021 11:30 PM CDT 12/24/21 4933 Ventilator Parameters BPAP/CPAP Mode Auto-CPAP O2 Flow Rate 2 L/min EPAP (Min) 5 cm H2O EPAP (Max) 15 cm H2O Humidification Heated humidifier Pt placed on CPAP (hosp unit) for night & tolerating well. Will continue to follow & assist as needed. Electronically signed by: Kermit Shin R.R.T., AdityaRCandyTCandy 12/25/21 1:18 AM CDT Tho Heredia M.D. - 12/24/2021 5:28 PM CDT Orthopedic Spine Surgery Progress Note Orthopedic Service: [facility] Admission Day: 12/24/2021 SUBJECTIVE Seen in [...] Deltoid?? Biceps?? Triceps Wrest ext Wrist flex Bioinformatics Research Technician Fing Abd?? R?? 4 4 4 5?? [...] time on the weekend, please contact the [facility] Orthopedic Surgery house resident material control supervisor at [phone]. Brodie Calderón, Pharm.D., R.Ph. - 12/24/2021 10:49 [...] in this encounter Consult Notes Katia Marinelli L.G.S.Katelyn., M.S.W. - 12/26/2021 12:44 PM CDT SUBJECTIVE DEMOGRAPHIC INFORMATION Referral Source: Service/Provider Referral Reason: Discharge Planning Person(s) present during interview: Patient and daughter, Lia Previous Psychosocial Assessment : Yes, Date: 12/04/21, completed by Sherronda Zoë, L.I.C.S.W., M.S.W. . Patient denies any changes since [...] hospitalized on Alexa 4c-128 A list of alf facility options (that they geographically reside or requested) has been provided to and reviewed with patient and daughter Lia . Disclaimers: Financial disclosure provided informing patient of our ownership and financial relationship of the [facility] beds, home health, and hospice agencies. Reviewed Medicare coverage and provided a list of options. Destination - Admitted Since 12/24/2021 Service Provider Request Status Selected Services Address Phone Fax Patient Preferred [facility] Pending - Request Sent N/A [address] [facility] [phone] -- [facility] Pending - Request Sent N/A [address] [facility] [address] [facility] [address] -- [facility] Pending - Request Sent N/A [address] [facility] [address] -- ASSESSMENT / PLAN ASSESSMENT Patient is [...] Avery Guaman, M.S.W. 12/26/21 Grace Quezada P.T., WilP.T. - 12/25/2021 1:47 PM CDT Physical Therapy [...] lives nearby) Receives Help From: Family, Friend(s), race board attendant (Daughter stops by for 2 hours 5x/week; HISTORIC INTERPRETER helps with bathing 2x/week) ADL Assistance: Required assistance ADL Assistance Comments: Performs dressing and grooming tasks without assistance. Requires assistance for showers IADL/Homemaking Assistance: Required assistance IADL/Homemaking Assistance Comments: Daughter assists with cleaning, cooking, home management. Friend assists with medication management Driving: Does not drive Occupational Role: Retired Leisure Interests: Engages in seated exercise program daily Prior Mobility/Functional Transfers Level of Lynn: Modified independent Gait Devices/Wheelchair Used: Other (Comment) [...] needs met and questions answered. Outcome Measures [facility] Inpatient Short Form: -[facility] Basic Mobility (V.2) How much help [...] Climbing 3-5 steps with a railing?: Total -[facility] Basic Mobility (V.2) Raw Score: 15 -[facility] Basic Mobility (V.2) Standardized Score: 36.97 Interpretation: Clinicians answer the -[facility] Inpatient Short Form based on observed [...] program daily Prior Mobility/Functional Transfers Level of Lynn: Modified independent Gait Devices/Wheelchair Used: Other (Comment) [...] Completion Date - OT: 12/25/21 Outcome Measures [facility] Inpatient Short Form: Putting on and taking [...] Standardized Score: 38.66 Interpretation: Clinicians answer the [facility] Inpatient Short Form based on observed [...] 12/04/21 Previous assessment done by: Adrianne Camp L.I.C.S.WCandy, M.S.W. Primary Language: Lithuanian Person(s) present during interview: Person(s) Present During Interview: patient History of Present Illness #1 Myelopathy Cervical (HCC) Social History Support System: children Patient's Home Environment: two/multiple story house Finance/Insurance Primary insurance: MEDICARE A AND B Secondary insurance: [employer] Does the patient have any financial concerns? no benefits: No Advance Directives Legal Decision Maker: Self Advance Directives: Power of Referral Nurse for health care Advance Directives Status: Not Activated OBJECTIVE Baseline Functional Status Baseline Activities of Daily Living Mobility: Independent Dressing: Independent Feeding: Independent Bathing: Needs assistance Grooming: Independent Toileting: Independent Behavior: Calm, Pleasant, Other (comment) (fatigued) Communication: Talks, Understands speaking, Understands Lithuanian Shopping: Dependent Transportation: Support from family Medication Management: Independent Housekeeping: Dependent Meal Prep: Needs assistance Managing Finances: Independent Assistive Devices: Eyeglasses, Walker - four wheeled, Wheelchair - manual, Dentures Baseline Services/Resources Primary care clinic and provider: Anoop Emery from [facility] in [place] [phone] Additional Resources: NA Anticipated Needs Functional Status: Bathing, Mobility, Meal preparation, Housekeeping, Shopping, Transportation use (drive car, use taxi/bus) Anticipated Modifications to the Patient's Home: None Transportation Needs: Support from family Does the patient need discharge transport arranged?: No Ride and Caregiver Arranged: Yes Ride Caregiver Provider: Lia Moscoso Phone Number for Ride/Caregiver: [phone] Anticipated Discharge Destination: Snf Facility ASSESSMENT / PLAN Assessment: The hydro mechanic met with Yaz HaLucianoNerissa to discuss her current hospitalization and home [...] have previously been completed by patient's daughter. hydro mechanic discussed the patient's potential needs at dismissal based on their home setting, previous needs and responsibilities, homebound status, and relevant assessmentswith the patient. Support will be provided by patient's daughter. The patient demonstrated understanding when discussing her home going plans and anticipated needs. Patient expressed wanting to go to a rehab facility upon discharge. Yaz has requested admission to [facility] in [place], [place] ([phone]) as her first choice. Patient also identifies [facility] ([phone]) or [facility] ([phone]) as alt ernative options for SNF admission. Physical and occupational therapy have yet to evaluate the patient so hydro mechanic will await their recommendations for further discharge [...] the same level. At this time, the hydro mechanic will await physical and occupational therapy's recommendations to assess if a rehab facility would be feasible, as this is the patient's preferred discharge plan. After reviewing the patient's chart and meeting with the patient, the hydro mechanic deemed the LACE+/readmission questions were not necessary. [...] dismissal will be provided by family--Lia . hydro mechanic recommended private pay home services such as housekeeping, assistance with ADLs, private caregivers, Life Alert services, etc. and reaching out to family, friends, and neighbors for assistance. hydro mechanic provided information regarding the dismissal process. hydro mechanic placed or requested the following hospital-based consult orders and/or referrals: None. hydro mechanic will continue to assess for homegoing needs with the interdisciplinary team. hydro mechanic encouraged the patient to reach out with [...] Thank you for the consult. DCS pager [phone] will follow. Call primary service for diabetes concerns between [phone]. Primary service to contact DCS via hospital remote computer terminal operator for questions. documented in this encounter [...] with all her belongings to go to [facility]. Svetlana Núñez R.N. - 12/26/2021 6:20 [...] 3:40 PM CDT SURGEON: Dr. Wilmer Kearns. PUFFER TENDER: Dr. Tho Heredia. PRE-OPERATIVE DIAGNOSIS Progressive [...] Obstructive sleep apnea. Restless legs syndrome. 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 HISTORY OF PRESENT ILLNESS: Ms. Prenzel-Multani is a very pleasant 66-year-old female with [...] by Social Work to start working on alf facility placement. I anticipate discharge to a alf facility in 3-4 nights. TPR: 2, Decompression and laminoplasty Wilmer Kearns M.D. CT CT Job ID: [id number]/[facility] documented in this encounter Miscellaneous Notes Hospital [...] Orthopedic Surgery Deon Kearns M.D. 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 1003 GLUCOSE POCT, B Routine 12/24/2021 11:46 [...] Address City/State/ZIP Code Phon e Number POC [facility] [address] [place] [address] [place] [address] [place] [facility] [address] (ABNORMAL) Glucose, POCT [...] Provider LAB POCT ORDERABLES-MANUAL Performing Organization Address City/[facility]/ZIP Code Phon e Number POC [facility] [address] [place] [address] [place] [address] [place] [facility] [address] (ABNORMAL) Glucose, [...] Provider LAB POCT ORDERABLES-MANUAL Performing Organization Address City/[facility] Code Phon e Number POC [facility] [address] [place] [address] [place] [address] [place] [facility] [address] (ABNORMAL) Glucose, POCT (12/27/2021 9:01 PM CDT) [...] Provider LAB POCT ORDERABLES-MANUAL Performing Organization Address City/[facility]/ZIP Code Phon e Number POC [facility] [address] [place] [address] [place] [address] [place] [facility] [address] (ABNORMAL) Glucose, [...] Provider LAB POCT ORDERABLES-MANUAL Performing Organization Address City/[facility] Phon e Number POC [facility] [address] [place] [address] [place] [address] [place] [facility] [address] [facility] (ABNORMAL) Glucose, POCT (12/27/2021 12:54 [...] Provider LAB POCT ORDERABLES-MANUAL Performing Organization Address [facility] Phon e Number POC [facility] [address] [place] [address] [place] [address] [place] [facility] [address] [facility] (ABNORMAL) Glucose, POCT (12/27/2021 7:46 [...] / Volume Laterality Blood 12/27/2021 7:46 AM 10/13/202 2 7:51 CDT AM CDT Unknown Provider LAB POCT ORDERABLES-MANUAL Performing Organization Address City/State/ZIP Code Phon e Number POC [facility] [address] [place] [address] [place] [address] [place] [facility] [address] [facility] (ABNORMAL) Glucose, POCT (12/27/2021 2:32 AM CDT) [...] Provider LAB POCT ORDERABLES-MANUAL Performing Organization Address City/[facility] Code Phon e Number POC [facility] [address] [place] [address] [place] [address] [place] [facility] [address] [facility] (ABNORMAL) Glucose, POCT (12/26/2021 9:20 PM CDT) [...] Provider LAB POCT ORDERABLES-MANUAL Performing Organization Address City/[facility] Code Phon e Number POC [facility] [address] [place] [address] [place] [address] [facility] [place] [facility] [address] [facility] (ABNORMAL) Glucose, POCT (12/26/2021 5:12 PM CDT) [...] Provider LAB POCT ORDERABLES-MANUAL Performing Organization Address City/[facility] Code Phon e Number POC [facility] [address] [place] [address] [place] [address] [place] [facility] 200 [facility] (ABNORMAL) Glucose, POCT (12/26/2021 12:37 [...] Provider LAB POCT ORDERABLES-MANUAL Performing Organization Address City/[facility] Phon e Number POC [facility] [address] [place] [address] [facility] [place] [address] [facility] 200 [facility] (ABNORMAL) Glucose, POCT (12/26/2021 7:50 AM CDT) [...] Provider LAB POCT ORDERABLES-MANUAL Performing Organization Address City/[facility]/ZIP Code Phon e Number POC [facility] [address] [place] [address] [place] [address] [facility] 200 [facility] (ABNORMAL) Glucose, POCT (12/26/2021 1:13 AM [...] Provider LAB POCT ORDERABLES-MANUAL Performing Organization Address City/[facility]/ZIP Code Phon e Number POC [facility] [address] [place] [address] [place] [address] [facility] 200 [facility] (ABNORMAL) Glucose, POCT (12/25/2021 9:21 PM CDT) [...] Provider LAB POCT ORDERABLES-MANUAL Performing Organization Address City/[facility]/ZIP [facility] Phon e Number POC [facility] 200 [place] [address] [place] [address] [facility] 200 [facility] (ABNORMAL) Glucose, POCT (12/25/2021 4:17 PM CDT) Analysis Performed At Patho logis Time Signature Glucose, POCT, 238 (H) 70 - 140 12/25/2021 [facility] B mg/dL 4:21 PM CDT Site Capillary 12/25/2021 [facility] 4:21 PM CDT Specimen Anatomical Collection Method Collection Time Receive d Time (Source) Location / / Volume Laterality Blood 12/25/2021 4:17 PM 4:21 CDT PM CDT Unknown Provider LAB POCT ORDERABLES-MANUAL Performing Organization Address City/[facility]/ZIP Code Phon e Number POC [facility] [address] [place] [address] [place] [address] [facility] [address] (ABNORMAL) Glucose, [...] Provider LAB POCT ORDERABLES-MANUAL Performing Organization Address City/[facility] Phon e Number POC [facility] [address] [place] [address] [place] [address] [facility] [address] (ABNORMAL) Glucose, [...] Provider LAB POCT ORDERABLES-MANUAL Performing Organization Address City/[facility] Phon e Number POC [facility] [address] [place] [address] [place] [address] [facility] [address] (ABNORMAL) Glucose, [...] Provider LAB POCT ORDERABLES-MANUAL Performing Organization Address City/[facility]/ZIP Code Phon e Number POC [facility] 200 [place] [address] [place] [address] [facility] 200 [facility] Glucose, POCT (12/25/2021 6:53 AM CDT) Analysis [...] Provider LAB POCT ORDERABLES-MANUAL Performing Organization Address City/[facility]/ZIP Code Phon e Number POC [facility] 200 [place] [address] [place] [address] [facility] 200 [facility] Glucose, POCT (12/25/2021 5:57 AM CDT) P athologist Signature Glucose, POCT, 110 70 - 140 12/25/2021 [facility] B mg/dL 6:01 AM CDT Specimen Anatomical Collection Method Collection Time Receive d Time (Source) Location / / Volume Laterality Blood 12/25/2021 5:57 AM 2 6:01 CDT AM CDT Unknown Provider LAB POCT ORDERABLES-MANUAL Performing Organization Address City/State/ZIP Code Phon e Number POC [facility] [address] [place] [address] [facility] [place] [address] [facility] 200 [facility] DX Cervical Spine 2-3 Views [...] Address City/State/ZIP Code Phon e Number POC [facility] 200 [place] [address] [place] [address] [facility] 200 [facility] (ABNORMAL) Glucose, POCT (12/25/2021 3:45 [...] Address City/State/ZIP Code Phon e Number POC [facility] [address] [place] [address] [place] [address] [facility] [address] (ABNORMAL) Glucose, POCT (12/25/2021 2:38 AM CDT) P athologist Signature Glucose, POCT, 255 (H) 70 - 140 12/25/2021 [facility] B mg/dL 2:41 AM CDT Specimen Anatomical Collection Method Collection Time Receive d Time (Source) Location / / Volume Laterality Blood 12/25/2021 2:38 AM 2 2:41 CDT AM CDT Unknown Provider LAB POCT ORDERABLES-MANUAL Performing Organization Address City/[facility] Phon e Number POC [facility] [address] [place] [address] [place] [address] [facility] [address] (ABNORMAL) Glucose, POCT (12/25/2021 1:47 AM CDT) P athologist Signature Glucose, POCT, 282 (H) 70 - 140 12/25/2021 [facility] B mg/dL 1:49 AM CDT Specimen Anatomical Collection Method Collection Time Receive d Time (Source) Location / / Volume Laterality Blood 12/25/2021 1:47 AM 2 1:49 CDT AM CDT Unknown Provider LAB POCT ORDERABLES-MANUAL Performing Organization Address City/[facility]/ZIP [facility] Phon e Number POC [facility] [address] [place] [address] [place] [address] [facility] [address] (ABNORMAL) Glucose, POCT (12/25/2021 12:44 AM CDT) P athologist Signature Glucose, POCT, 283 (H) 70 - 140 12/25/2021 [facility] B mg/dL 1:49 AM CDT Specimen Anatomical Collection Method Collection Time Receive d Time (Source) Location / / Volume Laterality Blood 12/25/2021 12:44 12/25/2021 1:49 AM CDT AM CDT Unknown Provider LAB POCT ORDERABLES-MANUAL Performing Organization Address City/[facility]/ZIP [facility] Phon e Number POC [facility] [address] [place] [address] [place], [place] [address] [place] [address] POC 200 [facility] (ABNORMAL) Glucose, POCT (12/24/2021 11:45 PM CDT) P athologist Signature Glucose, POCT, 215 (H) 70 - 140 12/24/2021 [facility] B mg/dL 11:53 PM CDT Specimen Anatomical Collection Method Collection Time Receive d Time (Source) Location / / Volume Laterality Blood 12/24/2021 11:45 12/24/2021 PM CDT 11:53 PM CDT Unknown Provider LAB POCT ORDERABLES-MANUAL Performing Organization Address City/[facility] Phon e Number POC [facility] [address] [place] [address] [place] [address] [facility] [address] (ABNORMAL) Glucose, POCT [...] Provider LAB POCT ORDERABLES-MANUAL Performing Organization Address City/[facility]/ZIP Code Phon e Number POC [facility] 200 [place] [address] [place] [address] [facility] 200 [facility] (ABNORMAL) Glucose, POCT (12/24/2021 9:42 PM CDT) P athologist Signature Glucose, POCT, 165 (H) 70 - 140 12/24/2021 [facility] B mg/dL 9:49 PM CDT Specimen Anatomical Collection Method Collection Time Receive d Time (Source) Location / / Volume Laterality Blood 12/24/2021 9:42 PM 2 9:49 CDT PM CDT Unknown Provider LAB POCT ORDERABLES-MANUAL Performing Organization Address City/State/ZIP Code Phon e Number POC [facility] 200 [place] [address] [place] [address] [facility] 200 [facility] (ABNORMAL) Glucose, POCT (12/24/2021 8:41 PM CDT) [...] LAB POCT ORDERABLES-MANUAL Performing Organization Address City/State/ZIP [facility] Phon e Number POC [facility] 200 [place] [address] [place] [address] [facility] 200 [facility] (ABNORMAL) CBC without Differential (12/24/2021 8:41 PM [...] Organization Address City/State/ZIP Code Phon e Number [facility] - [address] [place] [address] [facility] [place] [address] [facility] 200 [facility] (ABNORMAL) Basic Metabolic Panel (12/24/2021 8:41 [...] M.D. LAB BLOOD ADD-ON Performing Organization Address City/[facility]/ZIP [facility] Phon e Number [facility] - [facility] [address] [place], [place] [address] [place] [address] [facility] 200 [facility] (ABNORMAL) Glucose, POCT (12/24/2021 7:46 PM CDT) P athologist Signature Glucose, POCT, 148 (H) 70 - 140 12/24/2021 [facility] B mg/dL 7:50 PM CDT Specimen Anatomical Collection Method Collection Time Receive d Time (Source) Location / / Volume Laterality Blood 12/24/2021 7:46 PM 7:50 CDT PM CDT Unknown Provider LAB POCT ORDERABLES-MANUAL Performing Organization Address City/[facility] Phon e Number POC [facility] [address] [place] [address] [place] [address] [facility] [address] (ABNORMAL) Glucose, POCT (12/24/2021 6:41 PM CDT) P athologist Signature Glucose, POCT, 163 (H) 70 - 140 12/24/2021 [facility] B mg/dL 7:30 PM CDT Specimen Anatomical Collection Method Collection Time Receive d Time (Source) Location / / Volume Laterality Blood 12/24/2021 6:41 PM 2 7:30 CDT PM CDT Unknown Provider LAB POCT ORDERABLES-MANUAL Performing Organization Address City/[facility]/ZIP [facility] Phon e Number POC [facility] [address] [place] [address] [place] [address] [facility] 200 [facility] (ABNORMAL) Glucose, POCT (12/24/2021 5:35 PM [...] Provider LAB POCT ORDERABLES-MANUAL Performing Organization Address City/[facility]/ZIP [facility] Phon e Number POC [facility] [address] [place] [address] [place] [address] [facility] 200 [facility] (ABNORMAL) Glucose, POCT (12/24/2021 4:33 [...] Provider LAB POCT ORDERABLES-MANUAL Performing Organization Address City/[facility] Phon e Number POC [facility] [address] [place], [place] [address] [place] [address] [facility] [address] [place] Fluoro Less [...] LAB BLOOD NON ADD-ON Performing Organization Address City/[facility]/ZIP Code Phon e Number [facility] - [address] (ABNORMAL) Glucose, Whole Blood (12/24/2021 2:57 PM CDT) athologist Signature Glucose 231 (H) 70 - 140 12/24/2021 [facility] mg/dL 2:58 PM CDT Specimen Anatomical Collection Method Collection Time Receive d Time (Source) Location / / Volume Laterality Blood (Blood, 12/24/2021 2:57 PM 12/25/19 2:57 Arterial Line) CDT PM CDT Milton Davis M.D. LAB BLOOD TROPONIN Performing Organization Address City/[facility]/ZIP Code Phon e Number [facility] - [address] Potassium, Blood (12/24/2021 2:57 PM CDT) athologist Signature Potassium, B 3.7 3.6 - 5.2 12/24/2021 [facility] mmol/L 2:58 PM CDT Specimen Anatomical Collection Method Collection Time Receive d Time (Source) Location / / Volume Laterality Blood (Blood, 12/24/2021 2:57 PM 12/25/19 22 2:57 Arterial Line) CDT PM CDT Milton C Davis M.D. LAB BLOOD NON ADD-ON Performing Organization Address City/[facility] Phon e Number [facility] - 200 [place], [place] [address] Sodium, B (12/24/2021 2:57 PM CDT) athologist Signature Sodium, B 135 135 - 145 12/24/2021 2:58 [facility] mmol/L PM CDT Specimen Anatomical Collection Method Collection Time Receive d Time (Source) Location / / Volume Laterality Blood (Blood, 12/24/2021 2:57 PM 12/25/19 2:57 Arterial Line) CDT PM CDT Milton Davis M.D. LAB BLOOD NON ADD-ON Performing Organization Address City/[facility] Phon e Number [facility] - 200 [place], [place] [address] Calcium, Ionized (12/24/2021 2:57 PM CDT) [...] Organization Address City/State/ZIP Code Phon e Number [facility] - [address] [place] [address] 05 [place], [place] [address] [place] [address] (ABNORMAL) Blood Gas with Coox, Arterial (12/24/2021 [...] LAB BLOOD NON ADD-ON Performing Organization Address City/[facility]/ZIP Code Phon e Number [facility] - [address] [place] [address] [place] [address] [facility] [address] (ABNORMAL) Glucose, POCT (12/24/2021 2:16 PM CDT) P athologist Signature Glucose, POCT, 251 (H) 70 - 140 12/24/2021 [facility] B mg/dL 2:19 PM CDT Site ARTLINE 12/24/2021 [facility] 2:19 PM CDT Specimen Anatomical Collection Method Collection Time Receive d Time (Source) Location / / Volume Laterality Blood 12/24/2021 2:16 PM 2 2:19 CDT PM CDT Unknown Provider LAB POCT ORDERABLES-MANUAL Performing Organization Address City/State/ZIP Code Phon e Number POC [facility] IN[facility]IENT [address] [place], [place] [address] [place] [address] [facility] [address] (ABNORMAL) Glucose, POCT [...] Address City/State/ZIP Code Phon e Number POC [facility] [address] [place] [address] [facility] [place] [address] [facility] 200 [facility] I[facility]M - [facility] (12/24/2021 9:59 AM CDT) Specimen (Source) Anatomical Collection Method Collection Time Re ceived Time Location / / Volume Laterality 12/24/2021 10:00 AM CDT Narrative [facility] - 12/24/2021 3:40 PM CDT Table formatting from the original result was not included. 24-Dec-2021 ? Intraopera tive Monitoring ? Final Report Study Number: 2 [facility] Health Education Director: Indra Mallory . [phone] or [phone] Referred by: WILMER KEARNS (127 or [phone]) Referred for: Referral Code: ?1957 RX: 195 [...] surg ical suite. Geri Mallory (127 or [phone])/[facility] Surgery ? Staff Minutes Start-DateTime End-DateTim e Remote Simultaneous Supervision 131 10 13:02 PM FOUNDRY PATTERNMAKER 12/24/2021 15:13 PM FOUNDRY PATTERNMAKER Remote Exclusive (1:1) Supervision 0 12/2021 00:00 AM FOUNDRY PATTERNMAKER 12/24/2021 00:00 AM FOUNDRY PATTERNMAKER In-Room Exclusive (1:1) Supervision 0 00:00 AM FOUNDRY PATTERNMAKER 12/24/2021 00:00 AM FOUNDRY PATTERNMAKER Total Monitoring Time: 131 ?? This interpretation has been electron ically signed: Indra Mallory MD at 12/24/2021 3:16:44 PM CDT Procedure Note Indra Mallory M.D. - 12/24/2021Formatt ing of this note is different from the original. 24-Dec-2021 Intraoperative Monitoring [facility] Report Study Number: 2 [facility] Health Education Director: Indra Mallory . [phone] or [phone] Referred by: WILMER KEARNS (127 or [phone]) Referred for: Referral Code: 1958 RX: 6 [...] surg ical suite. Geri Mallory (127 or [phone])/[facility] Surgery Staff Minutes Start-DateTime End-DateTim e Remote Simultaneous Supervision 131 12/15 13:02 PM FOUNDRY PATTERNMAKER 12/24/2021 15:13 PM FOUNDRY PATTERNMAKER Remote Exclusive (1:1) Supervision 0 12/2021 00:00 AM FOUNDRY PATTERNMAKER 12/24/2021 00:00 AM FOUNDRY PATTERNMAKER In-Room Exclusive (1:1) Supervision 0 00:00 AM FOUNDRY PATTERNMAKER 12/24/2021 00:00 AM FOUNDRY PATTERNMAKER Total Monitoring Time: 131 This interpretation has [...] 80 mL/hr magnesium hydroxide suspension 30 mL (RI LK OF MAGNESIA) 30 mL, oral, Daily [...] Wagner RCandyN.)2056 (Given - Provider: Toyin Wagner R.N.) 0843 [...] R.N.) 0809 (Given - Provider: Jenni Bettencourt RCandyN.) 0843 (Given - Provider: Lala Rivers R.NCandy) 25 mg, oral, Daily, First dose on [...] Rivers R.N.)1330 (Given - Provider: Lala Rivers RJose Cruz. - Comment: just finished lunch) 0-20 Units, subcutaneous, 3 times daily with meals, First dose (after last modification) on Fri12/26/21 at 1700, Simple or Complex Ratio: Simple, Carb Ratio - Simple (1 unit per __ grams of carbohydrates): 8 insulin aspart U-100 injection 0-13 Units (NovoLOG Fle xPen) 0808 (Given - Provider: Ketan Alfaro R.N. - Comment: bg [phone] (Given - Provider: Burton YanceyN. - Comment: bg [phone] (Given - Provider: Ranjana Roman R.N.) 0758 (Given - Provider: Jenni Bettencourt RCandyNCandy - Comment: RMG 210)[phone] (Given - Provider: Yesenia Hawk RCandyNCandy)1800 (Given - Provider: Toyin Wagner R.N.) 0836 (Given - Provider: Lala Rivers R.NCandy)1328 (Given - Provider: Lala Rivers R.N. - [...] 0835 (Domingo gaminoen - Provider: Ketan Alfaro RCandyNCandy) 20 Units, [...] Yesenia Hawk RLiss) 0842 (Given - Provider: Laal Rivers R.N.) 17 g, oral, Daily, First dose on 02/05 at 0900, Constipation, hold for loose stools Avoid mixing with starch-based thickened liquids., Indications: constipation pramipexole tablet 0.25 mg (MIRAPEX) 2121 (Given - Pro vider: Francie Pritchett RCandyNCandy) 2056 (Given - Provider: Toyin Wagner RCandyNCandy) 0.25 mg, oral, Daily at bedtime, First d ose (after last modification) on Fri12/26/21 at 2100 pramipexole tablet 0.375 mg (MIRAPEX) 1746 (Given - Pr ovider: Ranjana Roman R.N.) 1340 (Given - Provider: Burton MarchNCandy) 1334 ( Given - Provider: Lala Rivers [...] et (SENOKOT-S) 0803 (Given - Provider: Ketan Aflaro R.N.)2121 (Given - Provider: Francie Pritchett R.N.) 08 (Given - Provider: Jenni Bettencourt RLiss)2056 (Given - Provider: Toyin Wagner RLiss) 0843 (Given - Provider: Lala Rivers RLiss) 1 tablet, oral, 2 times daily, First dos e on 12/24/21 at 2100, For constipation. Hold for diarrhea. [...] R.N.) 0233 (Given - Provider: Francie Pritchett RLiss)0755 (Given - Provider: Jenni Bettencourt R.N.) 0048 [...] R.N.)0800 (See Alternative - Provider: Ketan Alfaro R.N.)1247 (See Alternative - Provider: Ketan Alfaro R.N.)1313 (Given - Provider: Ketan Alfrao R.N.) 0233 (See Alternative - Provider: Francie Pritchett RLiss)0755 (See Alternative - Provider: Jenni Bettencourt RCandyNCandy) 0048 (See Alternative - Provider: Mitzy Almaguer R.N.)0609 (See Alternative - Provider: Mitzy Almaguer R.N.)1453 (See Alternative - Provider: Lala Rivers R.N.) 5 mg, oral, Every 4 hours PRN, moderate pain or score 4-6 of 10, if other analgesics fail, Starting on Fri12/24/21 at 1831, Maximum dose of 10 mg in 4 hours 1852 (See Alternative - Provider: Ranjana Roman RLiss) traZODone tablet 100 mg (DESYREL) 100 mg, [...]
--- OUTSIDE RECORDS SUMMARY | 2022-01-25 16:31 | XMS_ITS | Encounter Summary ---
:1955 Author Organization [facility] Address [address] [place] [address] Care Team Providers Name Role Phone Unavailable Primary Care Provider Unavailable Reason for Visit Outpatient (Routine) - Closed Specialty Diagnoses / Procedures Referred By Contact Refer red To Contact [facility]opedic [facility] [address] [place] [address] Referral ID Status Reason Start Date Expiration Date Visits Requ ested Visits Authorized [id number] Closed 11/14/2021 11/13/2024 1 1 Encounter Details Date Type Department Care Team Description 12/21/2021 Office Visit Department of Buster Herrera Cervical D isc Disorder Orthopedic Surgery in [place] With Myelopathy [place], [place] [address] [facility] (Primary Dx) [address] [place] [phone] Social History Tobacco Use Types Packs/Day Years [...] do you attend cheondoism or Never 2021 congregational services? Do you [...] have completed or the highest Tiara, MEd, TILE BURNER, ODILIA) degree you have received? Sex Assigned [...] Buster Herrera M.D. CT CT Job ID: [id number] documented in this encounter Plan of Treatment Upcoming Encounters Date Type Specialty Care Team Description 02/04/2022 Office Visit Orthopedic Surgery Deon Herrera M.D. [address] [place] [phone] (Wo rk) documented as of this encounter Visit Diagnoses Diagnosis Cervical Disc Disorder With Myelopathy - Primary documented in this encounter Additional Health Concerns Assessment Noted Time PHQ-9 Depression Total Score: 5 04/29/2016 10:10 AM CS T documented as of this encounter
--- OUTSIDE RECORDS SUMMARY | 2022-01-25 16:31 | XMS_ITS | Encounter Summary ---
:1955 Author Organization [facility] Address [address] [place] [address] Care Team Providers Name Role Phone Unavailable Primary Care Provider Unavailable Reason for Referral Outpatient (Routine) - Authorized Specialty Diagnoses / Procedures Referred By Contact Refer red To Contact Diagnoses Pain Low Back Unspecified Diabetes Mellitus Type 2 With Diabetic Neuropathy (HCC) Myelopathy Cervical (HCC) Pain Neuropathic Hypertension Essential Primary Constipation Spondylosis Lumbar Without Myelopathy Tendonitis Achilles Right Ernesto Hart M.D. 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 [facility] [address] [place] [address] Referral ID Status Reason Start Date Expiration Date Visits Requ ested Visits Authorized [id number] Closed 11/14/2021 11/14/2022 1 1 Encounter Details Date Type Department Care Team Description 12/21/2021 Comprehensive Visit Preoperative Dago Herrera M.D. [address] [place] [phone] Preoperative Exam (Primary Dx); Evaluation Center in Ernesto Hart M.D. [address] [place] [phone] Pain Low Back Unspecified; [place], [place] Diabetes Mellitus Type 2 Wit h Diabetic Neuropathy (HCC); [address] [facility] Myelopathy Cervical (HCC); [place], [place]; [phone] Hypertension Essential Prima ry; [phone] Constipation; Spondylosis Lum bar Without Myelopathy; Tendonitis [...] do you attend rastafarian or Never 2021 adventism services? Do you [...] have completed or the highest Tiara, MEd, BRAKER PASSENGER TRAIN, ODILIA) degree you have received? Sex Assigned [...] y.o. Date of : 1955 Patient Address: [address] [place] [phone] Primary Care Provider: No primary care provider [...] Body Mass Index 40.0 To 44.9 Adult ([facility]) # Hypertension Essential Primary # Diabetes Mellitus Type 2 ([facility]) # Diabetes Mellitus Type 2 With Diabetic Neuropathy ([facility]) # Depression Major Recurrent Partial Remission ([facility]) # Constipation # Spondylosis Lumbar Without Myelopathy # Tendonitis Achilles Right # Pain Low Back Unspecified # Myelopathy Cervical ([facility]) # Pain Neuropathic # Central Sensitization Sydrome [...] pain. Would consider perioperative ketamine, postoperative hydromorphone REGULATORY SUBMISSIONS SPECIALIST, and possible postoperative pain consult if indicated. [...] Recommendations: None Ernesto Hart MD PGY4, Pager #[phone] documented in this encounter Plan of Treatment Upcoming Encounters Date Type Specialty Care Team Description 02/04/2022 Office Visit Orthopedic Surgery Deon Herrera M.D. [address] [place] [phone] (Wo rk) documented as of this [...] Signature Ventricular Rate 72 BPM MUSE ECG/Min DC Interval 180 ms MUSE QRSD Interval 100 ms MUSE QT Interval 382 ms MUSE QTC Interval 418 ms MUSE P [place] 1 degrees MUSE R [place] -16 degrees MUSE T Wave [place] 26 degrees MUSE Specimen Anatomical Collection Method [...]
--- OUTSIDE RECORDS SUMMARY | 2022-01-25 16:31 | XMS_ITS | Encounter Summary ---
:1955 Author Organization [facility] Address [address] [place] [address] Care Team Providers Name Role Phone Unavailable Primary Care Provider Unavailable Reason for Referral Outpatient (Routine) - Closed Specialty Diagnoses / Procedures Referred By Contact Refer red To Contact Diagnoses Preoperative Exam Buster Herrera M.D. [facility] Procedures BMD Bone Density Spine Hips [address] [place] [address] [phone] Referral ID Status Reason Start Date Expiration Date Visits Requ ested Visits Authorized [id number] Closed 11/14/2021 11/14/2022 1 1 Reason for Visit Outpatient (Routine) - Closed Specialty Diagnoses / Procedures Referred By Contact Refer red To Contact Diagnoses Preoperative Exam Buster Herrera M.D. [facility] Procedures BMD Bone Density Spine Hips [address] [place] [phone] Referral ID Status Reason Start Date Expiration Date Visits Requ ested Visits Authorized [id number] Closed 11/14/2021 11/14/2022 1 1 Encounter Details Date Type Department Care Team Description 12/18/2021 Hospital Encounter Department of Buster Herrera perative Exam Radiology, Manasa Lang M.D. [facility], in [address] [place], [place] [address] [facility] [address] [place], [place] [phone] (Work) [phone] Social History Tobacco Use Types Packs/Day Years [...] do you attend zoroastrianism or Never 2021 jain services? Do you [...] or slept in a alf (including now)? Education Answer Date Recorded What is the highest level of school Master's degree (e.g., M A, MS, 07/15/2020 you have completed or the highest Tiara, MEd, PUBLICATIONS WRITER, ODILIA) degree you have received? Sex Assigned [...] 0 04/25/2011 mouth daily. oxyCODONE (ROXICODONE) 5 Take 1 tablet (5 18 tablet 0 12/27 mg immediate release mg total) by mouth tabletIndications: Acute every 4 (four) Pain hours as needed for moderate pain or score 4-6 of 10 (if other analgesics fail) Indication: Acute Pain. polyethylene glycol Take 1 packet (17 0 [...] 100 unit/mL (3 mL) every morning. injection lancets 4 each daily. 365 each 0 12/28/2021 nystatin (for_MYCOSTATIN) Apply 1 0 10/30/2016 100,000 unit/gram cream application topically 2 (two) times a day as needed. pen needle, diabetic (BD 4 each (4 365 each 0 12/28/2021 Ultra-Fine Mini Pen Injection total) Needle) 31 gauge x /16 daily. needle valACYclovir (VALTREX) 500 0 1 mg tablet VOLTAREN 1 % gel Apply 4 g 0 12/05/2016 topically 4 (four) times a day as needed. Xarelto 10 mg tablet Take 10 mg by 0 10/22/2021 mouth daily. ibuprofen (ADVIL,MOTRIN) Take 800 mg by 0 019 12/27/2021 800 mg tablet mouth every 6 (six) hours as needed. loratadine (for_CLARITIN) Take 1 tablet by 0 /08/200912/27/2021 10 mg tablet mouth daily. oxyCODONE-acetaminophen Take 1-2 tablets 0 202012/27/2021 (PERCOCET) 5-325 mg per by mouth 3 (three) tablet times a day as needed. acyclovir (for_ZOVIRAX) [...] 0 12/21/2021 25 mg suppository the rectum. mecobal-levomefolat Ca-B6 TAKE 1 TABLET BY 0 10/202012/24/2021 phos 3-35-2 mg tablet MOUTH TWICE DAILY MICROLET LANCET misc 2 (two) times a 3 04/04/2017 12/24/2021 day. for testing documented as of this encounter Plan of [...] Mineral Density (BMD) analysis perf ormed on Auctelia with serial number [id number]. ? FINDINGS: Left Hip: Femur Neck: BMD [...] image stored in the BMD study in [employer]), the calculated ten year probability of f racture is: FRAX Risk Factors: None FRAX (10 yr probability) Major Osteoporotic Fracture: ??8.1 % Hip Fracture: ?0.9 % ? Today's spine scan is considered non-heide gnostic according to ISCD Guidelines. Procedure Note Jai Villagran M.B., B.Ch., B.A.O. - 12/18/2021 EXAM: BMD BONE DENSITY SPINE HIPS Bone Mineral Density (BMD) analysis perf ormed on [employer]uctelia with serial number [id number]. FINDINGS: Left Hip: Femur Neck: BMD = [...] including images and graphs, is available in [employer]. In the absence of other causes of [...] image stored in the BMD study in [employer]), the calculated ten year probability of f [...]
--- OUTSIDE RECORDS SUMMARY | 2022-01-25 16:31 | XMS_ITS | Encounter Summary ---
:1955 Author Organization [facility] Address [address] [place] [address] Care Team Providers Name Role Phone Unavailable Primary Care Provider Unavailable Reason for Referral MRI/CAT/PET Scan (Routine) - Authorized Specialty Diagnoses / Procedures Referred By Contact Refer red To Contact Radiology Diagnoses Pain Cervical Arthrodesis Status Buster Herrera M.D. [facility] Procedures CT Cervical Spine without IV Contrast [address] [place], [place] [address] Referral ID Status Reason Start Date Expiration Date Visits V isits Requested Authorized [id number] Authorized 12/26/2021 12/26/2022 1 1 Outpatient (Routine) - Authorized Specialty Diagnoses / Procedures Referred By Contact Refer red To Contact Diagnoses Pain Cervical Buster Herrera M.D. [facility] Procedures DX Cervical Spine 4-5 Views [address] [place] [address] Referral ID Status Reason Start Date Expiration Date Visits V isits Requested Authorized [id number] Authorized 12/26/2021 12/26/2022 1 1 Outpatient (Routine) - Authorized Specialty Diagnoses / Procedures Referred By Contact Refer red To Contact Orthopedic Surgery Diagnoses Pain Cervical Buster Herrera [place] [facility] M.D. [address] [place] [address] Referral ID Status Reason Start Date Expiration Date Visits V isits Requested Authorized [id number] Authorized 12/26/2021 12/25/2024 1 1 Outpatient (Routine) - Authorized Specialty Diagnoses / Procedures Referred By Contact Refer red To Contact Diagnoses Pain Cervical Buster Herrera M.D. [facility] Procedures DX Cervical Spine 4-5 Views [address] [place] [address] Referral ID Status Reason Start Date Expiration Date Visits V isits Requested Authorized [id number] Authorized 12/26/2021 12/26/2022 1 1 Outpatient (Routine) - Authorized Specialty Diagnoses / Procedures Referred By Contact Refer red To Contact Orthopedic Surgery Diagnoses Pain Cervical Buster Herrera [place] [facility] M.D. [address] [place] [address] Referral ID Status Reason Start Date Expiration Date Visits V isits Requested Authorized [id number] Authorized 12/26/2021 12/25/2024 1 1 Outpatient (Routine) - Authorized Specialty Diagnoses / Procedures Referred By Contact Refer red To Contact Diagnoses Pain Buster Dai M.D. [place] [facility] Procedures DX Cervical Spine 4-5 Views [address] [place] [address] Referral ID Status Reason Start Date Expiration Date Visits V isits Requested Authorized [id number] Authorized 12/26/2021 12/26/2022 1 1 Outpatient (Routine) - Authorized Specialty Diagnoses / Procedures Referred By Contact Refer red To Contact Orthopedic Surgery Diagnoses Pain Cervical Buster Herrera [place] [address] [place] [address] Referral ID Status Reason Start Date Expiration Date Visits V isits Requested Authorized [id number] Authorized 12/26/2021 12/25/2024 1 1 Outpatient (Routine) - Authorized Specialty Diagnoses / Procedures Referred By Contact Refer red To Contact Diagnoses Pain Cervical Buster Herrera M.D. [facility] Procedures DX Cervical Spine 2-[address] Views [address] [place] [address] [phone] Referral ID Status Reason Start Date Expiration Date Visits V isits Requested Authorized [id number] Authorized 12/26/2021 12/26/2022 1 1 Outpatient (Routine) - Authorized Specialty Diagnoses / Procedures Referred By Contact Refer red To Contact Orthopedic Surgery Diagnoses Pain Cervical Buster Herrera [place] 200 [place] [address] Referral ID Status Reason Start Date Expiration Date Visits V isits Requested Authorized [id number] Authorized 12/26/2021 12/25/2024 1 1 Outpatient (Routine) - Closed Specialty Diagnoses / Procedures Referred By Contact Refer red To Contact Orthopedic Surgery Diagnoses Pain Cervical Buster Herrera [place] 200 [place] [address] Referral ID Status Reason Start Date Expiration Date Visits Requ ested Visits Authorized [id number] Closed 12/26/2021 12/25/2024 1 1 Reason for Visit Reason Comments Post-op Patient had surgery on Niels oplasty Posterior Cervical C3-7 Encounter Details Date Type Department Care Team Description 12/26/2021 Clinical Communication Department of Javier Post -op (Patient had Orthopedic Surgery Buster Lang M.D. surgery on in [place] [address] [address] [facility] Laminoplasty [place], [place] Posterior Cervical [address] [facility] [address] C3-7) [place], [place] [phone] (Work) [phone] Social History Tobacco Use Types Packs/Day Years [...] do you attend taoist or Never 2021 jewish services? Do you [...] have completed or the highest Tiara, MEd, PARENT EDUCATOR, ODILIA) degree you have received? Sex Assigned [...] Office Visit Orthopedic Surgery Deon Herrera M.D. [address] [place] [address] [phone] (Wo rk) Scheduled Orders Name Type [...]
--- OUTSIDE RECORDS SUMMARY | 2022-01-25 16:32 | XMS_ITS | Encounter Summary ---
:1955 Author Organization [facility] Address [address] [place] [address] Care Team Providers Name Role Phone Unavailable Primary Care Provider Unavailable Reason for Referral MRI/CAT/PET Scan (Routine) - Closed Specialty Diagnoses / Procedures Referred By Contact Refer red To Contact Radiology Diagnoses Neuralgia Trigeminal Meghna Valdez M.D., [facility] [place] [facility] Procedures MR Face without and with IV Contrast MR Brain without IV Contrast ME MRI BRAIN WO CNTRST HC MRI BRAIN WO CNTRST [facility] [address] [place] [phone] Referral ID Status Reason Start Date Expiration Date Visits Requ ested Visits Authorized [id number] Closed 06/13/2020 06/13/2021 1 1 Reason for Visit MRI/CAT/PET Scan (Routine) - Closed Specialty Diagnoses / Procedures Referred By Contact Refer red To Contact Radiology Diagnoses Neuralgia Trigeminal Meghna Valdez M.D., [facility] [place] [facility] Procedures MR Face without and with IV Contrast MR Brain without IV Contrast ME MRI BRAIN WO CNTRST HC MRI BRAIN WO CNTRST [facility] [address] [place] [phone] Referral ID Status Reason Start Date Expiration Date Visits Requ ested Visits Authorized [id number] Closed 06/13/2020 06/13/2021 1 1 Encounter Details Date Type Department Care Team Description 06/21/2020 Hospital Encounter Department of Meghna Valdez Radiology in [place], [place], [place] M.P.H. [address] [facility] [address] [place] [phone] Social History Tobacco Use Types Packs/Day [...] you attend oriental orthodox or Never 2021 sabianism services? Do you [...] mouth daily. pramipexole (MIRAPEX) Take 2-3 tablets 0 08/29/19 [...] 150 mg = 225 mg total daily. nystatin (for_MYCOSTATIN) Apply 1 0 10/30/2016 100,000 unit/gram cream application topically 2 (two) times a day as needed. VOLTAREN 1 % gel Apply 4 g 0 12/05/2016 topically 4 (four) times a day as needed. ibuprofen (ADVIL,MOTRIN) Take 800 mg by 0 019 12/27/2021 800 mg tablet mouth every 6 (six) hours as needed. loratadine (for_CLARITIN) Take 1 tablet by 0 09/1512/27/2021 10 mg tablet mouth daily. oxyCODONE-acetaminophen Take [...] a 3 04/04/2017 12/24/2021 day. for testing prednisoLONE acetate (PRED SHAKE LQ AND INT [...] Orthopedic Surgery Deon Herrera M.D. [address] [place], [place] [phone] (Wo rk) documented as [...] from chronic microangiopathy, though can be from director medical science amie [facility] myelolysis. Moderate chronic microangiopathy [...] from chronic microangiopathy, though can be from director medical science amie [facility] myelolysis. Moderate chronic microangiopathy [...]
--- OUTSIDE RECORDS SUMMARY | 2022-01-25 16:32 | XMS_ITS | Encounter Summary ---
:1955 Author Organization [facility] Address [address] [place] [address] Care Team Providers Name Role Phone Unavailable Primary Care Provider Unavailable Encounter Details Date Type Department Care Team Description 05/22/2021 Clinical Communication Department of Spine Pacoceci in [facility] [address] [place] [address] Social History Tobacco Use Types Packs/Day Years [...] do you attend holiness or Never 2021 amish services? Do you [...] have completed or the highest Tiara, MEd, CUSTOMER ACCOUNT COORDINATOR, ODILIA) degree you have received? Sex Assigned at Date Recorded Female 07/21/2017 2:58 PM CDT documented as of this encounter Miscellaneous Notes Telephone Encounter - Meghana Rodríguez - 05/22/2021 2:42 PM [facility] Question Set NIZER documented in this encounter Plan of Treatment Upcoming Encounters Date Type Specialty Care Team Description 02/04/2022 Office Visit Orthopedic Surgery Deon Herrera M.D. [address] [place], [place] [phone] (Wo rk) documented as of this encounter Visit Diagnoses Not on filedocumented in this encounter Additional Health Concerns Assessment Noted Time PHQ-9 Depression Total Score: 5 04/29/2016 10:10 AM CS T documented as of this encounter
--- OUTSIDE RECORDS SUMMARY | 2022-01-25 16:32 | XMS_ITS | Encounter Summary ---
:1955 Author Organization [facility] Address [address] [place] [address] Care Team Providers Name Role Phone Unavailable Primary Care Provider Unavailable Reason for Referral Outpatient (Routine) - Closed Specialty Diagnoses / Procedures Referred By Contact Refer red To Contact Diagnoses Preoperative Exam Buster Herrera M.D. [facility] Procedures DX Cervical Spine 4-5 Views [address] [place] [phone] Referral ID Status Reason Start Date Expiration Date Visits Requ ested Visits Authorized [id number] Closed 11/14/2021 11/14/2022 1 1 Reason for Visit Outpatient (Routine) - Closed Specialty Diagnoses / Procedures Referred By Contact Refer red To Contact Diagnoses Preoperative Exam Buster Herrera M.D. [facility] Procedures DX Cervical Spine 4-5 Views [address] [place] [phone] Referral ID Status Reason Start Date Expiration Date Visits Requ ested Visits Authorized [id number] Closed 11/14/2021 11/14/2022 1 1 Encounter Details Date Type Department Care Team Description 12/18/2021 Hospital Encounter Department of Buster Herrera perative Exam Radiology, Jay Lang M.D. Building, in [address] [place] [address] [place] [address] [place], [place] [phone] (Work) [phone] Social History Tobacco Use Types Packs/Day Years [...] do you attend congregational or Never 2021 evangelical services? Do you [...] for the very basics like Not h yna at all 12/12/2021 food, housing, medical care, [...] completed or the highest Tiara, MEd, ART INSTALLER, ODILIA) degree you have received? Sex [...] tablet IRON,CARBONYL/ASCORBIC Take 1 tablet by 0 07/19/ [...] 365 test 0 12/28/2021 strips blood-glucose meter [facility] Test as directed [...] Pen Injection total) Needle) 31 gauge x / daily. needle valACYclovir (VALTREX) 500 0 1 [...] /2 08/200912/27/2021 10 mg tablet mouth daily. oxyCODONE-acetaminophen Take [...] Surgery Deon Herrera M.D. [address] [place], [place] [phone] (Wo rk) documented as [...]
--- OUTSIDE RECORDS SUMMARY | 2022-01-25 16:32 | XMS_ITS | Encounter Summary ---
:1955 Author Organization [facility] Address [address] [place] [address] Care Team Providers Name Role Phone Unavailable Primary Care Provider Unavailable Encounter Details Date Type Department Care Team Description 07/20/2020 Orders Only Division of Pain Mychal Garcia, Pain Neuropathic Medicine in P.A.-C., M.S. (Primary Dx) [place], [place] [address] [place] [address] [address] [place] [phone] Social History Tobacco Use Types Packs/Day Years [...] do you attend lutheran or Never 2021 adventist services? Do you [...] have completed or the highest Tiara, MEd, TRANSITIONAL STUDIES INSTRUCTOR, ODILIA) degree you have received? Sex Assigned at Date Recorded Female 07/21/2017 2:58 PM CDT documented as of this encounter Plan of Treatment Upcoming Encounters Date Type Specialty Care Team Description 02/04/2022 Office Visit Orthopedic Surgery Deon Herrera M.D. [address] [place] [phone] (Wo ligia) documented as of this encounter Visit Diagnoses Diagnosis Pain Neuropathic - Primary documented in this encounter Additional Health Concerns Assessment Noted Time PHQ-9 Depression Total Score: 5 04/29/2016 10:10 AM ANATOLIY T documented as of this encounter
--- OUTSIDE RECORDS SUMMARY | 2022-01-25 16:32 | XMS_ITS | Encounter Summary ---
:1955 Author Organization [facility] Address [address] [place] [address] Care Team Providers Name Role Phone Unavailable Primary Care Provider Unavailable Encounter Details Date Type Department Care Team Description 11/09/2021 Clinical Communication Visit Review in [place], [place] [address] [place] [address] Social History Tobacco Use Types [...] do you attend sabianist or Never 2021 scientologist services? Do you [...] have completed or the highest Tiara, MEd, FAST FOOD SUPERVISOR, ODILIA) degree you have received? Sex Assigned at Date Recorded Female 07/21/2017 2:58 PM CDT documented as of this encounter Plan of Treatment Upcoming Encounters Date Type Specialty Care Team Description 02/04/2022 Office Visit Orthopedic Surgery Deon Herrera M.D. [address] [place] [phone] (Wo rk) documented as of this encounter Visit Diagnoses Not on filedocumented in this encounter Additional Health Concerns Assessment Noted Time PHQ-9 Depression Total Score: 5 04/29/2016 10:10 AM CS T documented as of this encounter
--- OUTSIDE RECORDS SUMMARY | 2022-01-25 16:32 | XMS_ITS | Encounter Summary ---
:1955 Author Organization [facility] Address [address] [place] [address] Care Team Providers Name Role Phone Unavailable Primary Care Provider Unavailable Reason for Visit Reason Comments COVID Inquiry Encounter Details Date Type Department Care Team Description 06/19/2020 Clinical Communication Division of Pain Lacey Garcia in COVID Inquiry Medicine in David Goodman, M.S. [address] [place] [address] [phone] Social History Tobacco Use Types Packs/Day Years [...] do you attend presybeterian or Never 2021 mandaeism services? Do you [...] sending patient for testing in [facility] or [facility], route encounter to the correct testing pool. documented in this encounter Plan of Treatment Upcoming Encounters Date Type Specialty Care Team Description 02/04/2022 Office Visit Orthopedic Surgery Deon Herrera M.D. [address] [place] [phone] (Wo rk) documented as of this encounter Visit Diagnoses Not on filedocumented in this encounter Additional Health Concerns Assessment Noted Time PHQ-9 Depression Total Score: 5 04/29/2016 10:10 AM CS T documented as of this encounter
--- OUTSIDE RECORDS SUMMARY | 2022-01-25 16:32 | XMS_ITS | Encounter Summary ---
:1955 Author Organization [facility] Address [address] [place] [address] Care Team Providers Name Role Phone Unavailable Primary Care Provider Unavailable Reason for Referral MRI/CAT/PET Scan (Routine) - Closed Specialty Diagnoses / Procedures Referred By Contact Refer red To Contact Radiology Diagnoses Stenosis Spinal Cervical Lia [facility] Procedures MR Cervical Spine without IV Contrast C.N.P., M.S.N. [address] [place] [phone] Referral ID Status Reason Start Date Expiration Date Visits Requ ested Visits Authorized [id number] Closed 11/12/2021 11/12/2022 1 1 Reason for Visit MRI/CAT/PET Scan (Routine) - Closed Specialty Diagnoses / Procedures Referred By Contact Refer red To Contact Radiology Diagnoses Stenosis Spinal Cervical Lia Junior APRN, [facility] Procedures MR Cervical Spine without IV Contrast C.N.P., M.S.N. [address] [place] [phone] Referral ID Status Reason Start Date Expiration Date Visits Requ ested Visits Authorized [id number] Closed 11/12/2021 11/12/2022 1 1 Encounter Details Date Type Department Care Team Description 11/14/2021 Hospital Encounter Department of [place], Lia Stenos is Spinal Radiology, Jay Hammond APRN, C.N.P., Melida armstrong Arun, in M.S.N. [place], [address] [place], [place] [address] [facility] [address] [place], [place] [phone] (Work) [phone] Social History Tobacco Use Types Packs/Day Years [...] do you attend latter-day or Never 2021 gnosticism services? Do you [...] slept in a senior living (including now)? Education Answer Date Recorded What is the highest level of school Master's degree (e.g., M Dago, MS, 07/15/2020 you have completed or the highest Tiara, MEd, PALLIATIVE CARE PHYSICIAN, ODILIA) degree you have received? Sex Assigned [...] 365 test 0 12/28/2021 strips blood-glucose meter [facility] Test as directed 1 each [...] Needle) 31 gauge x 3/16 daily. needle valACYclovir (VALTREX) 500 0 1 [...] (MAXITROL) 3.5 mg/g-10,000 unit/g-0.1 % ophthalmic ointment documented as of this encounter Plan of Treatment Upcoming Encounters Date Type Specialty Care Team Description 02/04/2022 Office Visit Orthopedic Surgery Deon Herrera M.D. [address] [place], [place] [phone] (Wo rk) documented as [...]
--- OUTSIDE RECORDS SUMMARY | 2022-01-25 16:32 | XMS_ITS | Encounter Summary ---
:1955 Author Organization [facility] Address [address] [place] [address] Care Team Providers Name Role Phone Unavailable Primary Care Provider Unavailable Reason for Referral MRI/CAT/PET Scan (Routine) - Closed Specialty Diagnoses / Procedures Referred By Contact Refer red To Contact Radiology Diagnoses Stenosis Spinal Cervical Buster Herrera M.D. [facility] Procedures CT Cervical Spine without IV Contrast [address] [place] [address] [phone] Referral ID Status Reason Start Date Expiration Date Visits Requ ested Visits Authorized [id number] Closed 11/14/2021 11/14/2022 1 1 Reason for Visit MRI/CAT/PET Scan (Routine) - Closed Specialty Diagnoses / Procedures Referred By Contact Refer red To Contact Radiology Diagnoses Stenosis Spinal Cervical Buster Herrera M.D. [facility] Procedures CT Cervical Spine without IV Contrast [address] [place], [place] [phone] Referral ID Status Reason Start Date Expiration Date Visits Requ ested Visits Authorized [id number] Closed 11/14/2021 11/14/2022 1 1 Encounter Details Date Type Department Care Team Description 12/18/2021 Hospital Encounter Department of Jesús Herrera Spinal Radiology, Davey [facility], in [address] [place], [place] 200 [facility] [address] [place], [place] [phone] (Work) [phone] Social History Tobacco Use Types Packs/Day Years [...] do you attend buddhist or Never 2021 judaism services? Do you [...] completed or the highest Tiara, MEd, SENIOR JAVA DATA ARCHITECT, ODILIA) degree you have received? Sex Assigned [...] 365 test 0 12/28/2021 strips blood-glucose meter [facility] Test as directed 1 each 0 12/28 [...] Surgery Deon Herrera M.D. [address] [place], [place] [phone] (Wo rk) documented as [...]
--- OUTSIDE RECORDS SUMMARY | 2022-01-25 16:32 | XMS_ITS | Encounter Summary ---
:1955 Author Organization [facility] Address [address] [place] [address] Care Team Providers Name Role Phone Unavailable Primary Care Provider Unavailable Reason for Referral Outpatient (Routine) - Closed Specialty Diagnoses / Procedures Referred By Contact Refer red To Contact Vascular Medicine Diagnoses Preoperative Exam Buster Herrera [place] M.D. [address] [place] [phone] Referral ID Status Reason Start Date Expiration Date Visits Requ ested Visits Authorized [id number] Closed 11/14/2021 11/14/2022 1 1 Outpatient (Routine) - Authorized Specialty Diagnoses / Procedures Referred By Contact Refer red To Contact Social Work Diagnoses Preoperative Exam Buster Herrera M.D. [address] [phone] Referral ID Status Reason Start Date Expiration Date Visits V isits Requested Authorized [id number] Authorized 11/14/2021 11/14/2022 1 1 Outpatient (Routine) - Closed Specialty Diagnoses / Procedures Referred By Contact Refer red To Contact Anesthesiology Diagnoses Preoperative Exam Buster Herrera M.D. [address] [phone] Referral ID Status Reason Start Date Expiration Date Visits Requ ested Visits Authorized [id number] Closed 11/14/2021 11/14/2022 1 1 Outpatient (Routine) - Closed Specialty Diagnoses / Procedures Referred By Contact Refer red To Contact Orthopedic Surgery Buster Herrera [facility] [place] [address] [place] [address] Referral ID Status Reason Start Date Expiration Date Visits Requ ested Visits Authorized [id number] Closed 11/14/2021 11/13/2024 1 1 MRI/CAT/PET Scan (Routine) - Closed Specialty Diagnoses / Procedures Referred By Contact Refer red To Contact Radiology Diagnoses Stenosis Spinal Cervical Buster Herrera M.D. [facility] Procedures CT Cervical Spine without IV Contrast [address] [place], [place] [phone] Referral ID Status Reason Start Date Expiration Date Visits Requ ested Visits Authorized [id number] Closed 11/14/2021 11/14/2022 1 1 Outpatient (Routine) - Closed Specialty Diagnoses / Procedures Referred By Contact Refer red To Contact Diagnoses Preoperative Exam Buster Herrera M.D. [facility] Procedures DX Cervical Spine 4-5 Views [address] [place], [place] [address] Referral ID Status Reason Start Date Expiration Date Visits Requ ested Visits Authorized [id number] Closed 11/14/2021 11/14/2022 1 1 Outpatient (Routine) - Closed Specialty Diagnoses / Procedures Referred By Contact Refer red To Contact Diagnoses Preoperative Exam Buster Herrera M.D. [place] [facility] Procedures BMD Bone Density Spine Hips [address] [place] [address] Referral ID Status Reason Start Date Expiration Date Visits Requ ested Visits Authorized [id number] Closed 11/14/2021 11/14/2022 1 1 Reason for Visit Reason Comments Pain Outpatient (Routine) - Closed Specialty Diagnoses / Procedures Referred By Contact Refer red To Contact Spine Diagnoses Radiculopathy Lumbar Radiculopathy Cervical Anoop Emery M.D. [place] [facility] [address] [place] [address] Referral ID Status Reason Start Date Expiration Date Visits Requ ested Visits Authorized [id number] Closed 05/22/2021 05/22/2022 1 1 Encounter Details Date Type Department Care Team Description 11/14/2021 Comprehensive Visit Department of Emmanuel Herrera Disc Disorder With Myelopathy (Primary Dx); Orthopedic Surgery Buster Lang M.D. Stenosis Spinal Cervical; in [place], [facility] [address] [facility] Preoperative Exam; [place], [place] Contact With And (Suspected) Exposure To COVID-19; [address] [facility] [phone] Encounter For Preprocedural Laboratory E xamination (COVID-19) [place], [place] [phone] (Work) [phone] Social History Tobacco Use Types Packs/Day Years [...] completed or the highest Tiara, MEd, MANAGER OF PRODUCT, ODILIA) degree you have received? Sex Assigned [...] Buster Herrera M.D. CT CT Job ID: [id number] documented in this encounter Plan of Treatment Upcoming Encounters Date Type Specialty Care Team Description 02/04/2022 Office Visit Orthopedic Surgery Deon Herrera M.D. [address] [place], [place] [phone] (Wo rk) Scheduled Referrals [...] Neuroradiology ARZ LOS, Neuroradiology T omography [facility] [place] [facility] Specimen (Source) Anatomical Collection Method Collection Time [...] Organization Address City/State/ZIP Code Phon e Number [facility] [address] [place], [place] [address] [facility] [place] [address] Laboratories-[facility] [address] APTT (Activated Partial Thromboplastin [...] M.D. LAB BLOOD ADD-ON Performing Organization Address City/[facility] Code Phon e Number [facility] - [address] [place], [place] [address] [place], [place] [id number] [place] [address]-[facility] [address] 25-Hydroxyvitamin D2 and D3 [...] performa nce characteristics determined by [facility] in a manner consistent with CLIA [...] Organization Address City/State/ZIP Code Phon e Number [facility] [address] [place], [place] [address] [place] [address] [facility] [facility] [address] [place] Type and Screen (with reflex Antibody ID) (12/18/2021 12:28 PM CDT) Patholo gist Method Time Signature ABORh O Pos Not 12/18/2021 ETRM applicable 3:16 PM CDT Antibody Negative Negative 12/18/2021 ETRM Screen 3:33 PM CDT Type & Screen 02/15/2022 12/18/2021 ETRM Expiration 23:59 3:16 PM CDT Testing [place] DEFAULT 12/18/2021 ETRM Location 12:44 PM CDT Specimen Anatomical Collection Method Collection Time Receive d Time (Source) Location / / Volume Laterality Blood (Blood, 12/18/2021 12:28 12/18/2021 Venous) PM CDT 12:44 PM CDT Buster Herrera M.D. LAB BLOOD BANK TEST ORDERABL ES Performing Organization Address City/[facility] Phon e Number [facility] - [address] ETRM [place] [address] First [facility] (ABNORMAL) Hemoglobin A1c (12/18/2021 12:28 PM CDT) [...] M.D. LAB BLOOD ADD-ON Performing Organization Address City/State/[facility] Phon e Number [facility] - [address] D[address] Prothrombin Time (PT) (12/18/2021 12:28 PM [...] Organization Address City/State/ZIP Code Phon e Number [facility] - 200 [place], [place] [address] [facility] [place] [place] [address] Laboratories-[facility] [address] [facility] (ABNORMAL) CBC with Differential, Blood (12/18/2021 12:28 PM CDT) [facility] gist Method Time Signature Hemoglobin 14.8 [...] Organization Address City/State/ZIP Code Phon e Number [facility] - [address] [place], [place] [address] [place] [address] Laboratories-[facility] [address] BMD Bone [...] Mineral Density (BMD) analysis perf ormed on [employer] with serial number [id number]. ? FINDINGS: Left Hip: Femur Neck: BMD [...] including images and graphs, is available in [employer]. In the absence of other causes of [...] Mineral Density (BMD) analysis perf ormed on [employer] with serial number [id number]. FINDINGS: Left Hip: Femur Neck: BMD = [...]
--- OUTSIDE RECORDS SUMMARY | 2022-01-25 16:32 | XMS_ITS | Encounter Summary ---
:1955 Author Organization [facility] Address [address] [place] [address] Care Team Providers Name Role Phone Unavailable Primary Care Provider Unavailable Reason for Referral Outpatient (Routine) - Closed Specialty Diagnoses / Procedures Referred By Contact Refer red To Contact Spine Lia Junior APRN, C.N.PCandy, [place] M.S.N. 200 [place] [address] Referral ID Status Reason Start Date Expiration Date Visits Requ ested Visits Authorized [id number] Closed 11/12/2021 11/11/2024 1 1 RI/CAT/PET Scan (Routine) - Closed Specialty Diagnoses / Procedures Referred By Contact Refer red To Contact Radiology Diagnoses Stenosis Spinal Cervical Lia Junior APRN, [place] [facility] Procedures MR Cervical Spine without IV Contrast C.N.P., M.S.N. [address] [place] [phone] Referral ID Status Reason Start Date Expiration Date Visits Requ ested Visits Authorized [id number] Closed 11/12/2021 11/12/2022 1 1 Reason for Visit Outpatient (Routine) - Closed Specialty Diagnoses / Procedures Referred By Contact Refer red To Contact Spine Diagnoses Radiculopathy Lumbar Radiculopathy Cervical Anoop Emery M.D. [place] [facility] [address] [place] [address] Referral ID Status Reason Start Date Expiration Date Visits Requ ested Visits Authorized [id number] Closed 05/22/2021 05/22/2022 1 1 Encounter Details Date Type Department Care Team Description 11/12/2021 Comprehensive Visit Department of Spine Precious Garrett Spinal Cervical (Primary Dx); [place] Radiculopathy Cervical; [place] [address] [facility] Spinal Stenosis Lumbar Region Without Ne urogenic Claudication [address] [place] [phone] Social History Tobacco Use Types Packs/Day Years [...] do you attend nondenominational or Never 2021 mandaeism services? Do you [...] have completed or the highest Tiara, MEd, MAINTENANCE SERVICE DISPATCHER, ODILIA) degree you have received? Sex Assigned [...] oxycodone at night time), acupuncture , and ocular care technologist. Acupuncture was not helpful, and she has [...] Orthopedic Surgery Deon Herrera M.D. [address] [place], [place] [phone] (Wo rk) Scheduled Referrals Name Type Priority Associated Diagnoses Order S [facility] Spine office Outpatient Referral Routine Expected [...]
--- OUTSIDE RECORDS SUMMARY | 2022-01-25 16:32 | XMS_ITS | Encounter Summary ---
:1955 Author Organization [facility] Address [address] [place] [address] Care Team Providers Name Role Phone Unavailable [...] do you attend druze or Never 2021 lutheran services? Do you [...] completed or the highest Tiara, MEd, TELEPHONE QUOTATION CLERK, ODILIA) degree you have received? Sex Assigned at Date Recorded Female 07/21/2017 2:58 PM CDT documented as of this encounter Consult Notes Adrianne Camp L.I.C.S.W., M.S.W. - 12/04/2021 4:48 PM CDT Psychosocial Assessment SUBJECTIVE DEMOGRAPHIC INFORMATION Referral Source: Patient Request Referral Reason: Psychosocial Assessment and Discharge Planning Person(s) present during interview: Patient Previous Psychosocial Assessment: No Primary care clinic and provider: [facility] Mliler. Family Medicine, They were advised of the [...] Ihsan and has two brothers in the [place]. Early growth and development: The patient met social and developmental milestones as expected. Patient has no biological children but has an adult foster daughter named Lia Moscoso. Spirituality / Caodaism / Culture: Lutheran History: None Employment: Retired Psychosocial Risk Factors [...] handrails for stairs, hospital bed, oxygen, ramp, employee relations specialist, toilet riser, tub/shower chair/bench, walker - four wheeled, and wheelchair - manual Patient anticipates potentially needing the following additional equipment: none Transportation needs: support from family/friends FORMAL AND INFORMAL RESOURCES Patient has a assistant winemaker visit to help with ADL's/IADL's twice per [...] know more about skilled facilities in the [place], [place] area. alcoholism worker provided instructions onhow to search Medicare.gov website for a list of chcf facilities. Social work discussed the role of care management in discharge planning and the purpose of the assessment today. Patient is scheduled for LAMINOPLASTY POSTERIOR CERVICAL C3-7 [5863] surgery with Haroon Smith on 12/24/2021. Patient anticipates being inpatient for at least three consecutive nights. Patient states that she anticipates being discharged to a chcf facility. alcoholism worker provided education to patient with regard to Medicare eligibility criteria that, three midnight stay together with need for skilled care of some kind, for example, physical therapy, occupational therapy, or chcf. Patient vernally demonstrates understanding. [facility] [place] [place] ([phone]) as her first choice. Patient also identifies [facility] ([phone]) or [facility] ([phone]) as alternative options for SNF admission. This social psychologist explained that after surgery, the inpatient team in [place] will be able to assist with determining discharge needs and will assist in the referral process. This social psychologist advised that selecting a chcf facility cannot be set up prior to surgery. IMPRESSION Ms. Yaz Adames is a 66-year-old female. This consultation was completed telephonically. alcoholism worker is unable to visually assess patient's [...] chcf facility, with a first preference for [facility] [place], [place] ([phone]). Patient's daughter Lia Moscoso ([phone]) will provide patient with transportation via car ride home if deemed safe and appropriate for the patient. Inpatient social psychologist will need to assess the needs of the patient/family and provide appropriate resources. The outpatient social psychologist will provide collaboration with the treatment team as needed. This social psychologist provided patient with direct contact information, should questions arise. Patient is comfortable with this plan and indicated that there are no further questions at this time. Anticipated barriers to the transition of care/plan: None Robert Blount.Saran., M.S.W. 12/04/2021 documented in this encounter Plan of Treatment Upcoming Encounters Date Type Specialty Care Team Description 02/04/2022 Office Visit Orthopedic Surgery Deon Herrera M.D. [address] [place] [phone] (Wo rk) documented as of this encounter Visit Diagnoses Not on filedocumented in this encounter Additional Health Concerns Assessment Noted Time PHQ-9 Depression Total Score: 5 04/29/2016 10:10 AM ANATOLIY T documented as of this encounter
--- OUTSIDE RECORDS SUMMARY | 2022-01-25 16:32 | XMS_ITS | Encounter Summary ---
:1955 Author Organization [facility] Address [address] [place] [address] Care Team Providers Name Role Phone Unavailable Primary Care Provider Unavailable Reason for Visit Outpatient (Routine) - Closed Specialty Diagnoses / Procedures Referred By Contact Refer red To Contact Vascular Medicine Diagnoses [facility] [address] [place] [address] Referral ID Status Reason Start Date Expiration Date Visits Requ ested Visits Authorized [id number] Closed 11/14/2021 11/14/2022 1 1 Encounter Details Date Type Department Care Team Description 12/18/2021 Comprehensive Visit Department of Ann-Marie Muller Embolus Pulmonary Personal History (Primary Dx); Vascular Medicine R, P.A.-C. Anticoagulant Therapy; in [place] [address] [address] [facility] Preoperative Exam [place], [place] [address] [facility] [address] [place], [place] [phone] (Work) [phone] Social History Tobacco Use Types Packs/Day Years [...] do you attend cheondoism or Never 2021 latter day services? Do [...] have completed or the highest Tiara, MEd, SHIP BOSS, ODILIA) degree you have received? Sex Assigned [...] CDT REFERRAL SOURCE Buster Herrera M.D. [address] [place] [phone] SUBJECTIVE CHIEF COMPLAINT / REASON FOR VISIT [...] 1-2 years ago. She has returned to [facility] with complaints of neck pain and low [...] Preoperative Exam Mrs. Adames has come to [facility] with complaints of back and neck pain. [...] Orthopedic Surgery Deon Herrera M.D. [address] [place] [phone] (Wo rk) documented as of this encounter Visit Diagnoses Diagnosis Embolus Pulmonary Personal History - Marleen skyler Anticoagulant Therapy Preoperative Exam documented in this encounter Additional Health Concerns Assessment Noted Time PHQ-9 Depression Total Score: 5 04/29/2016 10:10 AM CS T documented as of this encounter
--- OUTSIDE RECORDS SUMMARY | 2022-01-25 16:32 | XMS_ITS | Encounter Summary ---
:[address] [facility] Address [address] [place] [address] Care Team Providers Name Role Phone Unavailable Primary Care Provider Unavailable Reason for Visit Outpatient (Routine) - Closed Specialty Diagnoses / Procedures Referred By Contact Refer red To Contact Spine Lia Junior, ALESIA CCandyN.P., [facility] M.S.N. [address] [place], [place] [phone] Referral ID Status Reason Start Date Expiration Date Visits Requ ested Visits Authorized [id number] Closed 11/12/2021 11/11/2024 1 1 Encounter Details Date Type Department Care Team Description 11/26/2021 Telemedicine Department of Spine in [facility] Myelo jak Cervical ([facility]) (Primary Dx); [place], [place] Stenosis Spinal Cervical; [address] [facility] [address] [facility] Stenosis Spinal Lumbar [place] [phone] Social History Tobacco Use Types Packs/Day Years [...] do you attend advent or Never 2021 rastafarian services? Do you belong to any clubs or Yes 12/12/2021 organizations such as advent groups, unions, fraGrata or athletic groups, or school groups? How [...] have completed or the highest Tiara, MEd, LOAN OPERATIONS SPECIALIST, ODILIA) degree you have received? Sex Assigned at Date Recorded Female 07/21/2017 2:58 PM CDT documented as of this encounter Progress Notes Amor Garrett M.D. - 11/26/2021 8:30 AM CDT SUBJECTIVE CHIEF COMPLAINT: Cervical and lumbar stenosis. Consult conducted via real-time audio/video technology by Amor Garrett M.D. in [facility] to the patient in Patient's Home. [...] Orthopedic Surgery Deon Herrera M.D. 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
--- OUTSIDE RECORDS SUMMARY | 2022-01-25 16:32 | XMS_ITS | Encounter Summary ---
:1955 Author Organization [facility] Address [address] [place] [address] Care Team Providers Name Role Phone Unavailable Primary Care Provider Unavailable Encounter Details Date Type Department Care Team Description 05/15/2021 [facility] Ailabouni, Radi culopathy Lumbar (Primary Dx); AND CLINICS Anoop Ruiz M.D. Radiculopathy Cervical [address] [facility] [address] [place] [address] [phone] [place] [address] Social History Tobacco Use Types Packs/Day Years [...] do you attend adventism or Never 2021 denominational services? Do you [...] slept in a senior care (including now)? Education Answer Date Recorded What is the highest level of school Master's degree (e.g., M A, MS, 07/15/2020 you have completed or the highest Tiara, MEd, COUNTER INSTALLER, ODILIA) degree you have received? Sex Assigned at Date Recorded Female 07/21/2017 2:58 PM CDT documented as of this encounter Plan of Treatment Upcoming Encounters Date Type Specialty Care Team Description 02/04/2022 Office Visit Orthopedic Surgery Deon Herrera M.D. [address] [place] [phone] (Wo rk) documented as of this encounter Visit Diagnoses Diagnosis Radiculopathy Lumbar - Primary Radiculopathy Cervical documented in this encounter Additional Health Concerns Assessment Noted Time PHQ-9 Depression Total Score: 5 04/29/2016 10:10 AM CS T documented as of this encounter
--- OUTSIDE RECORDS SUMMARY | 2022-01-25 16:32 | XMS_ITS | Encounter Summary ---
:1955 Author Organization [facility] Address [address] [place] [address] Care Team Providers Name Role Phone Unavailable Primary Care Provider Unavailable Encounter Details Date Type Department Care Team Description 06/16/2020 Clinical Communication Department of Sleep Meghna Valdez, Medicine in [place]za, M.P .H. [place] [address] [place] [phone] Social History Tobacco Use Types Packs/Day Years [...] do you attend spiritism or Never 2021 religion services? Do you [...] Visit Orthopedic Surgery Deon Herrera M.D. [address] [place] [phone] (Wo rk) documented as of this encounter Visit Diagnoses Not on filedocumented in this encounter Additional Health Concerns Assessment Noted Time PHQ-9 Depression Total Score: 5 04/29/2016 10:10 AM CS T documented as of this encounter
--- OUTSIDE RECORDS SUMMARY | 2022-01-25 16:32 | XMS_ITS | Encounter Summary ---
:1955 Author Organization [facility] Address [address] [place] [address] Care Team Providers Name Role Phone Unavailable Primary Care Provider Unavailable Reason for Referral Outpatient (Routine) - Closed Specialty Diagnoses / Procedures Referred By Contact Refer red To Contact Spine Diagnoses Radiculopathy Lumbar Radiculopathy Cervical Anoop Emery M.D. [address] [address] Referral ID Status Reason Start Date Expiration Date Visits Requ ested Visits Authorized [id number] Closed 05/22/2021 05/22/2022 1 1 T ADVOCATE Encounter Details Date Type Department Care Team Description 05/22/2021 [facility] Yuly, Radi culopathy Lumbar (Primary Dx); AND CLINICS Anoop Ruiz M.D. Radiculopathy Cervical [address] [place] [address] [place] [address] Social History Tobacco Use Types Packs/Day Years [...] do you attend orthodoxy or Never 2021 episcopal services? Do you belong to any clubs or Yes 12/12/2021 organizations such as orthodoxy groups, unions, fra[employer]vy[employer] for Parents or athletic groups, or school groups? How [...] have completed or the highest Tiara, MEd, BIOLOGIST, ODILIA) degree you have received? Sex Assigned at Date Recorded Female 07/21/2017 2:58 PM CDT documented as of this encounter Plan of Treatment Upcoming Encounters Date Type Specialty Care Team Description 02/04/2022 Office Visit Orthopedic Surgery Deon Herrera M.D. [address] [place] [phone] (Wo rk) Scheduled Referrals Name Type Priority Associated Diagnoses Order S [facility] Center Outpatient Referral Routine Radiculopath y Lumbar Expected: Referral Radiculopathy Cervical 05/22 (Approximate), Expires: 08/22/2022 documented as of this encounter Visit Diagnoses Diagnosis Radiculopathy Lumbar - Primary Radiculopathy Cervical documented in this encounter Additional Health Concerns Assessment Noted Time PHQ-9 Depression Total Score: 5 04/29/2016 10:10 AM CS T documented as of this encounter
--- OUTSIDE RECORDS SUMMARY | 2022-01-25 16:32 | XMS_ITS | Encounter Summary ---
:1955 Author Organization [facility] Address [address] [place] [address] Care Team Providers Name Role Phone Unavailable Primary Care Provider Unavailable Reason for Referral Outpatient (Routine) - Closed Specialty Diagnoses / Procedures Referred By Contact Refer red To Contact Diagnoses Pain Eye Left Mychal Garcia, [facility] Procedures PM Nerve Block injection Other; left infraorbital nerve; US-Guided; Left Rayna San, M.S. [address] [place] [address] Referral ID Status Reason Start Date Expiration Date Visits Requ ested Visits Authorized [id number] Closed 06/23/2020 06/23/2021 1 1 Reason for Visit Outpatient (Routine) - Closed Specialty Diagnoses / Procedures Referred By Contact Refer red To Contact Pain Medicine Diagnoses Neuralgia Trigeminal Meghna Valdez M.D., [facility] M.P.H. [address] [phone] Referral ID Status Reason Start Date Expiration Date Visits V isits Requested Authorized [id number] Closed Specialty 06/13/2020 06/13/2021 1 1 Services Required Encounter Details Date Type Department Care Team Description 06/23/2020 Comprehensive Visit Division of Pain Mychal Garcia Pain Neuropathic (Primary Dx); Medicine in David Goodman, M.S. Pain Eye Left; [place], [facility] 1st [facility] Pain Low Back; [place], [place] Diabetes Mellitus Type 2 Wit h Diabetic Neuropathy (HCC); [address] [facility] [address] Osteoarthritis; [place], [place] [phone] Neuralgia Trig eminal [phone] (Work) [phone] Social History Tobacco Use Types Packs/Day Years [...] do you attend anglican or Never 2021 judaism services? Do you [...] use of walker to ambulate [facility]. ASSESSMENT / PLAN ASSESSMENT / PLAN [...] These are outlined below. PLAN 1. Trial ecoa-nfl-hrabgme kydmj-ykfepa-rjeg 600 mg one hour before bed. 2. [...] Office Visit Orthopedic Surgery Deon Herrera M.D. [address] [place] [address] [phone] (Wo rk) documented as of this [...] QREADS: click the 'Dept Filter' button in [employer], then the 'Clear (Show All)' button, then [...] fellow participated in the procedure, and the at[employer]t retailer sales consultant was present for the entire [...]
--- OUTSIDE RECORDS SUMMARY | 2022-01-25 16:32 | XMS_ITS | Encounter Summary ---
:1955 Author Organization [facility] Address [address] [place] [address] Care Team Providers Name Role Phone Unavailable Primary Care Provider Unavailable Reason for Visit Outpatient (Routine) - Closed Specialty Diagnoses / Procedures Referred By Contact Refer red To Contact Diagnoses Pain Eye Left Mychal Garcia, [facility] Procedures PM Nerve Block injection Other; left infraorbital nerve; US-Guided; Left PLorena San, M.SCandy [address] [place] [phone] Referral ID Status Reason Start Date Expiration Date Visits Requ ested Visits Authorized [id number] Closed 06/23/2020 06/23/2021 1 1 Encounter Details Date Type Department Care Team Description 07/05/2020 Procedure visit Division of Pain Medicine Isacc Knight, Pain Eye Left in [facility] karthik Pruett 200 [facility] 200 [place] [address] [place], [place] [phone] (Wo rk) Social History Tobacco Use Types [...] do you attend anabaptism or Never 2021 methodist services? Do you [...] surrounding structures. Images have been archived in [employer]: click the 'Dept Filter' button in [employer], then the 'Clear (Show All)' button, then [...] fellow participated in the procedure, and the document management consultant was present for the entire procedure. OPERATIVE NOTE INFORMATION Specimens: 0 Drains: 0 Estimated blood loss: 0 Implants: 0 documented in this encounter Plan of Treatment Upcoming Encounters Date Type Specialty Care Team Description 02/04/2022 Office Visit Orthopedic Surgery Deon Herrera M.D. [address] [place], [place] [phone] (Wo rk) documented [...] structures. ?? Images have been archived in [employer]: click the 'Dept Filter' button in [employer], then the 'Clear (Show All)' button, then [...] fellow participated in the procedure, and the document management consultant was present for the entire procedure. [...]
--- OUTSIDE RECORDS SUMMARY | 2022-01-25 16:33 | XMS_ITS | Encounter Summary ---
:1955 Author Organization [facility] Address [address] [place] [address] Care Team Providers Name Role Phone Unavailable Primary Care Provider Unavailable Reason for Referral Outpatient (Routine) - Closed Specialty Diagnoses / Procedures Referred By Contact Refer red To Contact Neurology Meghna Valdez M.D ., M.P.H. [facility] [address] [place] [phone] Referral ID Status Reason Start Date Expiration Date Visits Requ ested Visits Authorized [id number] Closed 06/09/2020 06/09/2021 1 1 Encounter Details Date Type Department Care Team Description 06/09/2020 Orders Only Department of Neurology in Meghna Valdez M.D., [place], [place] M.P.H. 200 [facility] [address] [place] [address] [place], [place] [phone] (Wo rk) Social History Tobacco Use Types [...] do you attend episcopal or Never 2021 sabianist services? Do you belong to any clubs or Yes 12/12/2021 organizations such as episcopal groups, unions, fraTocagen or athletic groups, or school groups? How [...] Orthopedic Surgery Deon Herrera M.D. [address] [place], [place] [phone] (Wo rk) Scheduled Referrals Name Type Priority Associated Diagnoses Order [facility] Neurology office Outpatient Referral Routine Expe cted: visit (clinic) 06/09/2020 (Approximate), Expires: 06/10/2023 documented as of this encounter Visit Diagnoses Not on filedocumented in this encounter Additional Health Concerns Assessment Noted Time PHQ-9 Depression Total Score: 5 04/29/2016 10:10 AM CS T documented as of this encounter
--- OUTSIDE RECORDS SUMMARY | 2022-01-25 16:33 | XMS_ITS | Encounter Summary ---
:1955 Author Organization [facility] Address [address] [place] [address] Care Team Providers Name Role Phone Unavailable Primary Care Provider Unavailable Encounter Details Date Type Department Care Team Description 03/23/2018 Clinical Communication Department of Physical Catarina Garcia, Medicine and R.N. Rehabilitation in [address] [place], [place] [address] [place] [phone] [place], [place] [phone] Social History Tobacco Use Types Packs/Day [...] do you attend voodoo or Never 2021 sikh services? Do you [...] update and she will keep in touch. CTOR OF PUBLIC SAFETY documented in this encounter Plan of Treatment Upcoming Encounters Date Type Specialty Care Team Description 02/04/2022 Office Visit Orthopedic Surgery Deon Herrera M.D. [address] [place] [phone] (Wo rk) documented as of this encounter Visit Diagnoses Not on filedocumented in this encounter Additional Health Concerns Assessment Noted Time PHQ-9 Depression Total Score: 5 04/29/2016 10:10 AM CS T documented as of this encounter
--- OUTSIDE RECORDS SUMMARY | 2022-01-25 16:33 | XMS_ITS | Encounter Summary ---
:1955 Author Organization [facility] Address [address] [place] [address] Care Team Providers Name Role Phone Unavailable Primary Care Provider Unavailable Reason for Visit Reason Comments Trigeminal Neuralgia Encounter Details Date Type Department Care Team Description 06/03/2020 Nurse Triage Department of Internal Viola Ortez T rigeminal Neuralgia Medicine in [facility] [address] [facility] [address] [phone] Social History Tobacco Use Types Packs/Day Years [...] do you attend yazidi or Never 2021 sikhism services? Do you [...] hours of pain medicine Protocols used: FACE HIIR-LCKIT-IX Care Advice Patient/Caregiver understands and will follow [...] Orthopedic Surgery Deon Herrera M.D. [address] [place], [place] [phone] (Wo rk) documented as of this encounter Visit Diagnoses Not on filedocumented in this encounter Additional Health Concerns Assessment Noted Time PHQ-9 Depression Total Score: 5 04/29/2016 10:10 AM CS T documented as of this encounter
--- OUTSIDE RECORDS SUMMARY | 2022-01-25 16:33 | XMS_ITS | Encounter Summary ---
:1955 Author Organization [facility] Address [address] [place] [address] Care Team Providers Name Role Phone Unavailable Primary Care Provider Unavailable Reason for Referral Outpatient (Routine) - Closed Specialty Diagnoses / Procedures Referred By Contact Refer red To Contact Neurology Meghna Valdez M.D ., M.P.H. [facility] [address] [place] [phone] Referral ID Status Reason Start Date Expiration Date Visits Requ ested Visits Authorized [id number] Closed 04/11/2020 04/11/2021 1 1 HIDE TRIMMER Reason for Visit Reason Comments Trigeminal neuralgia - left Ref. Appointment Request (Routine) - Closed Specialty Diagnoses / Procedures Referred By Contact Refer red To Contact Neurology Referral ID Status Reason Start Date Expiration Date Visits Requ ested Visits Authorized [id number] Closed 03/13/2020 03/13/2021 1 1 Encounter Details Date Type Department Care Team Description 04/11/2020 Comprehensive Visit Department of Meghna Valdez ia Trigeminal Neurology in Flynn Wright, (Primary Dx) [place], [place] M.P.H. [address] [place] [address] [address] [facility] [address] [place], [place] [phone] Social History Tobacco Use Types Packs/Day [...] do you attend tenriism or Never 2021 mormon services? Do you [...] Comments Blood Pressure 126/66 04/11/2020 10:23 AM RAW HIDE TRIMMER Pulse 90 04/11/2020 10:23 AM RAW HIDE TRIMMER Temperature - - Respiratory Rate - - Oxygen Saturation - - Inhaled Oxygen Concentration - - Weight 120 kg (263 lb 10.7 oz) 04/11/2020 10:23 AM RAW HIDE TRIMMER Height - - Body Mass Index 38.61 09/24/2017 2:18 PM CDT documented in this encounter Patient Instructions Patient InstructionsMeghna Valdez M.D., M.P.H. - 04/11/2020 10:30 AM RAW HIDE TRIMMER Images from the original note were not [...] with your health care provider. ? 2007 [facility] ([facility]). All rights reserved. [id number] HIDE TRIMMER documented in this encounter Consult Notes Meghna Valdez M.D., M.P.H. - 04/11/2020 10:30 AM CST SUBJECTIVE CHIEF COMPLAINT / REASON FOR VISIT Yaz Adames is a 64 y.o. female who presents for evaluation of Trigeminal neuralgia - left (Ref. ). HISTORY OF PRESENT ILLNESS I am redictating this note for the 3rd time as [facility] and [employer] have continually deleted or lost this [...] was tried. Neuro imaging was obtained at [facility] and I am able to [...] file Gets together: Not on file Attends mormon service: Not on file Active member of [...] Alert and oriented x 4. CRANIAL NERVES: ibm bpm developer II-XII intact and symmetric. She has pain [...] over 80 minutes. Meghna Valdez M.D., M.P.H. HIDE TRIMMER documented in this encounter Plan of Treatment Upcoming Encounters Date Type Specialty Care Team Description 02/04/2022 Office Visit Orthopedic Surgery Deon Herrera M.D. [address] [place], [place] [phone] (Wo rk) Scheduled Referrals Name Type Priority Associated Diagnoses Order S [facility] Neurology office Outpatient Referral Routine Expe cted: visit (clinic) 07/10/2020 (Approximate), Expires: 04/11/2023 documented as of this encounter Visit Diagnoses Diagnosis Neuralgia Trigeminal - Primary documented in this encounter Additional Health Concerns Assessment Noted Time PHQ-9 Depression Total Score: 5 04/29/2016 10:10 AM CS T documented as of this encounter
--- OUTSIDE RECORDS SUMMARY | 2022-01-25 16:33 | XMS_ITS | Encounter Summary ---
:1955 Author Organization [facility] Address [address] [place] [address] Care Team Providers Name Role Phone Unavailable Primary Care Provider Unavailable Encounter Details Date Type Department Care Team Description 08/04/2018 [facility] Anoop Emery ther Dyspnea AND CLINICS D, MJay (Primary Dx) 1999 [facility] [address] [place] [address] [place], [place] [phone] [address] Social History Tobacco Use Types Packs/Day Years [...] do you attend religion or Never 2021 adventism services? Do you [...] Orthopedic Surgery Deon Herrera M.D. [address] [place] [phone] (Wo rk) documented as of this encounter Visit Diagnoses Diagnosis Other Dyspnea - Primary documented in this encounter Additional Health Concerns Assessment Noted Time PHQ-9 Depression Total Score: 5 04/29/2016 10:10 AM ANATOLIY T documented as of this encounter
--- OUTSIDE RECORDS SUMMARY | 2022-01-25 16:33 | XMS_ITS | Encounter Summary ---
:1955 Author Organization [facility] Address [address] [place] [address] Care Team Providers Name Role Phone Unavailable Primary Care Provider Unavailable Encounter Details Date Type Department Care Team Description 08/18/2019 Clinical Communication Division of Prescheduling, Gastroenterology in [place], [place] [address] [place] [address] Social History Tobacco Use Types Packs/Day [...] do you attend confucianist or Never 2021 mandaen services? Do you [...] Office Visit Orthopedic Surgery Deon Herrera M.D. [address] [place] [phone] (Wo rk) documented as of this encounter Visit Diagnoses Not on filedocumented in this encounter Additional Health Concerns Assessment Noted Time PHQ-9 Depression Total Score: 5 04/29/2016 10:10 AM CS T documented as of this encounter
--- OUTSIDE RECORDS SUMMARY | 2022-01-25 16:33 | XMS_ITS | Encounter Summary ---
:1955 Author Organization [facility] Address [address] [place] [address] Care Team Providers Name Role Phone Unavailable Primary Care Provider Unavailable Reason for Visit Appointment Request (Routine) - Canceled Specialty Diagnoses / Procedures Referred By Contact Refer red To Contact Henry Alfaro M. B.B.S. [address] [place] [phone] Referral ID Status Reason Start Date Expiration Date Visits V isits Requested Authorized [id number] Canceled 10/06/2017 10/06/2018 1 Encounter Details Date Type Department Care Team Description 12/18/2017 Nurse Only Department of Physical Henry Alfaro M.B.B.S. [address] [place] [phone] Medicine and Rehabilitation in Elida Garcia R.N. [address] [place] [phone] [place], [place] [address] [place] [phone] Social History Tobacco Use Types Packs/Day [...] do you attend protestant or Never 2021 christian services? Do you belong to any clubs or Yes 12/12/2021 organizations such as protestant groups, unions, fraPushfor or athletic groups, or school groups? How [...] Surgery Deon Herrera M.D. [address] [place], [place] [phone] (Wo rk) documented as of this encounter Visit Diagnoses Diagnosis Dysfunction Pelvic Floor Female documented in this encounter Additional Health Concerns Assessment Noted Time PHQ-9 Depression Total Score: 5 04/29/2016 10:10 AM CS T documented as of this encounter
--- OUTSIDE RECORDS SUMMARY | 2022-01-25 16:33 | XMS_ITS | Encounter Summary ---
:1955 Author Organization [facility] Address [address] [place] [address] Care Team Providers Name Role Phone Unavailable Primary Care Provider Unavailable Encounter Details Date Type Department Care Team Description 05/05/2019 [facility] Anoop Emery I tchy Eye (Primary Dx); AND CLINICS DFlynn Pain Eye Left 1999 [facility] [address] [place] [address] [place], [place] [phone] Social History Tobacco Use Types Packs/Day Years [...] do you attend rastafari or Never 2021 gnosticism services? Do you [...] Orthopedic Surgery Deon Herrera M.D. [address] [place] [phone] (Wo rk) documented as of this encounter Visit Diagnoses Diagnosis Itchy Eye - Primary Pain Eye Left documented in this encounter Additional Health Concerns Assessment Noted Time PHQ-9 Depression Total Score: 5 04/29/2016 10:10 AM ANATOLIY T documented as of this encounter
--- OUTSIDE RECORDS SUMMARY | 2022-01-25 16:33 | XMS_ITS | Encounter Summary ---
:1955 Author Organization [facility] Address [address] [place] [address] Care Team Providers Name Role Phone Unavailable Primary Care Provider Unavailable Reason for Visit Reason Comments GI Motility Constipation Encounter Details Date Type Department Care Team Description 04/22/2019 Clinical Division of Dominic, GI Motility; Communication Gastroenterology in [place], [place] M.B.B.S. [address] [facility] [address] [place] [phone] [facility] [phone] Social History Tobacco Use Types Packs/Day Years [...] do you attend alevism or Never 2021 jehovah's witness services? Do [...] physician's line called re: Pt. Notes in [employer] mention neuro. Thanks M TENENS PSYCHIATRIST Telephone Encounter - Yaneth Patel R.N. - 04/30/2019 9:36 AM CST Sent Patient Online Services message, see Patient Email Encounter dated 04/30/2019 for more details. M TENENS PSYCHIATRIST Telephone Encounter - Anika Dubose R.N. - 04/28/2019 4:26 PM [facility] SUBJECTIVE CHIEF COMPLAINT / REASON FOR CALL [...] states there was not a good fit). M TENENS PSYCHIATRIST documented in this encounter Plan of Treatment Upcoming Encounters Date Type Specialty Care Team Description 02/04/2022 Office Visit Orthopedic Surgery Deon Herrera M.D. [address] [place], [place] [phone] (Wo rk) documented as of this encounter Visit Diagnoses Not on filedocumented in this encounter Additional Health Concerns Assessment Noted Time PHQ-9 Depression Total Score: 5 04/29/2016 10:10 AM CS T documented as of this encounter
--- OUTSIDE RECORDS SUMMARY | 2022-01-25 16:33 | XMS_ITS | Encounter Summary ---
:1955 Author Organization [facility] Address [address] [place] [address] Care Team Providers Name Role Phone Unavailable Primary Care Provider Unavailable Encounter Details Date Type Department Care Team Description 06/11/2019 Clinical Communication Department of Provider, Ophthalmology in [place], [place] [address] [place] [address] Social History Tobacco Use Types Packs/Day Years [...] do you attend mandaen or Never 2021 taoism services? Do you [...] Orthopedic Surgery Deon Herrera M.D. [address] [place] [phone] (Wo rk) documented as of this encounter Visit Diagnoses Not on filedocumented in this encounter Additional Health Concerns Assessment Noted Time PHQ-9 Depression Total Score: 5 04/29/2016 10:10 AM CS T documented as of this encounter
--- OUTSIDE RECORDS SUMMARY | 2022-01-25 16:33 | XMS_ITS | Encounter Summary ---
:1955 Author Organization [facility] Address [address] [place] [address] Care Team Providers Name Role Phone Unavailable Primary Care Provider Unavailable Encounter Details Date Type Department Care Team Description 01/05/2018 Clinical Communication Department of Physical Catarina Garcia, Medicine and R.N. Rehabilitation in [address] [place], [place] [address] [place] [phone] [place], [place] [phone] Social History Tobacco Use Types Packs/Day [...] do you attend pentecostalism or Never 2021 orthodox services? Do you [...] Visit Orthopedic Surgery Deon Herrera M.D. [address] [place] [phone] (Wo rk) documented as of this encounter Visit Diagnoses Not on filedocumented in this encounter Additional Health Concerns Assessment Noted Time PHQ-9 Depression Total Score: 5 04/29/2016 10:10 AM CS T documented as of this encounter
--- OUTSIDE RECORDS SUMMARY | 2022-01-25 16:33 | XMS_ITS | Encounter Summary ---
:1955 Author Organization [facility] Address [address] [place] [address] Care Team Providers Name Role Phone Unavailable Primary Care Provider Unavailable Reason for Visit Reason Comments Med Refill Encounter Details Date Type Department Care Team Description 04/12/2020 Refill Department of Neurology in Meghna Valdez M.D., Med Refill [place], [place] M.P.H. 300 [facility] [address] [place] [address] [place] [phone] (Wo rk) Social History Tobacco Use Types [...] do you attend scientology or Never 2021 temple services? Do you [...] PM CST Patient requesting 90 day supply. EWORKER documented in this encounter Plan of Treatment Upcoming Encounters Date Type Specialty Care Team Description 02/04/2022 Office Visit Orthopedic Surgery Deon Herrera M.D. [address] [place], [place] [phone] (Wo rk) documented as of this encounter Visit Diagnoses Not on filedocumented in this encounter Additional Health Concerns Assessment Noted Time PHQ-9 Depression Total Score: 5 04/29/2016 10:10 AM CS T documented as of this encounter
--- OUTSIDE RECORDS SUMMARY | 2022-01-25 16:33 | XMS_ITS | Encounter Summary ---
:1955 Author Organization [facility] Address [address] [place] [address] Care Team Providers Name Role Phone Unavailable Primary Care Provider Unavailable Reason for Referral Specialty Diagnoses / Procedures Referred By Contact Refer red To Contact Jorden Xiong M.D. [facility] Region [address] [facility] [place] [phone] Referral ID Status Reason Start Date Expiration Date Visits Requ ested Visits Authorized SPERSON BURIAL NEEDS Encounter Details Date Type Department Care Team Description 05/17/2020 Orders Only [facility] PCP [facility] Sa paul Douglas M.D. [address] [place], [place] [phone] (Wo rk) Social History [...] do you attend buddhist or Never 2021 islam services? Do you [...] Orthopedic Surgery Deon Herrera M.D. [address] [place], [place] [phone] (Wo rk) Scheduled Referrals [...]
--- OUTSIDE RECORDS SUMMARY | 2022-01-25 16:33 | XMS_ITS | Encounter Summary ---
:1955 Author Organization [facility] Address [address] [place] [address] Care Team Providers Name Role Phone Unavailable Primary Care Provider Unavailable Encounter Details Date Type Department Care Team Description 01/12/2018 Clinical Communication Department of Physical Richard, Ida Medicine and K Rehabilitation in [address] [place] [address] [place] [phone] [place] [address] [phone] Social History Tobacco Use Types Packs/Day Years [...] do you attend mandaen or Never 2021 confucianist services? Do you [...] Orthopedic Surgery Deon Herrera M.D. [address] [place] [phone] (Wo rk) documented as of this encounter Visit Diagnoses Not on filedocumented in this encounter Additional Health Concerns Assessment Noted Time PHQ-9 Depression Total Score: 5 04/29/2016 10:10 AM CS T documented as of this encounter
--- OUTSIDE RECORDS SUMMARY | 2022-01-25 16:33 | XMS_ITS | Encounter Summary ---
:1955 Author Organization [facility] Address [address] [place] [address] Care Team Providers Name Role Phone Unavailable Primary Care Provider Unavailable Reason for Visit Reason Onset Date Comments Results 01/21/2018 Encounter Details Date Type Department Care Team Description 01/21/2018 Clinical Communication Department of Physical Rue, Catarina Cid, Results Medicine and R.N. Rehabilitation in [address] [place] [address] [place] [address] [place] [address] [phone] Social History Tobacco Use Types Packs/Day Years [...] you attend jehovah's witness or Never 2021 sabianism services? Do you [...] message on the portal which she understands. N RESOURCES OPERATIONS DIRECTOR documented in this encounter Plan of Treatment Upcoming Encounters Date Type Specialty Care Team Description 02/04/2022 Office Visit Orthopedic Surgery Deon Herrera M.D. [address] [place], [place] [phone] (Wo rk) documented as of this encounter Visit Diagnoses Not on filedocumented in this encounter Additional Health Concerns Assessment Noted Time PHQ-9 Depression Total Score: 5 04/29/2016 10:10 AM CS T documented as of this encounter
--- OUTSIDE RECORDS SUMMARY | 2022-01-25 16:33 | XMS_ITS | Encounter Summary ---
:1955 Author Organization [facility] Address [address] [place] [address] Care Team Providers Name Role Phone Unavailable Primary Care Provider Unavailable Encounter Details Date Type Department Care Team Description 01/14/2018 Clinical Communication Department of Physical Catarina Garcia, Medicine and R.N. Rehabilitation in [address] [place], [place] [address] [place] [address] [place], [place] [phone] Social History Tobacco Use Types Packs/Day [...] do you attend zoroastrian or Never 2021 oriental orthodox services? Do [...] PM CDT I returned a call to [facility]. She completed the two week Evacuation [...] Orthopedic Surgery Deon Herrera M.D. [address] [place], [place] [phone] (Wo rk) documented as of this encounter Visit Diagnoses Not on filedocumented in this encounter Additional Health Concerns Assessment Noted Time PHQ-9 Depression Total Score: 5 04/29/2016 10:10 AM CS T documented as of this encounter
--- OUTSIDE RECORDS SUMMARY | 2022-01-25 16:33 | XMS_ITS | Encounter Summary ---
:1955 Author Organization [facility] Address [address] [place] [address] Care Team Providers Name Role Phone Unavailable Primary Care Provider Unavailable Encounter Details Date Type Department Care Team Description 06/06/2020 Clinical Communication Department of Neurology Meghna Valdez, in [facility] karthik Pruett, M.P.H. [address] [place] [address] 2200 [place], [place] [phone] Social History Tobacco Use Types Packs/Day [...] do you attend mosque or Never 2021 buddhist services? Do you [...] decide whether she needs a referral to [facility] Spoke with patient and she is scheduled [...] a 8. Patient was seen at the [facility] last Friday. ER increased Carbamazepine to [...] Orthopedic Surgery Deon Herrera M.D. [address] [place], [place] [phone] (Wo rk) documented as of this encounter Visit Diagnoses Not on filedocumented in this encounter Additional Health Concerns Assessment Noted Time PHQ-9 Depression Total Score: 5 04/29/2016 10:10 AM CS T documented as of this encounter
--- OUTSIDE RECORDS SUMMARY | 2022-01-25 16:33 | XMS_ITS | Encounter Summary ---
:1955 Author Organization [facility] Address [address] [place] [address] Care Team Providers Name Role Phone Unavailable Primary Care Provider Unavailable Encounter Details Date Type Department Care Team Description 06/01/2018 Clinical Communication Pain Rehabilitation Vasile Hale Delta in [facility], Ph.D., L .P. [address] [place] [address] [phone] Social History Tobacco Use Types Packs/Day Years [...] do you attend restorationism or Never 2021 sikh services? Do you [...] Visit Orthopedic Surgery Deon Herrera M.D. [address] [place] [phone] (Wo rk) documented as of this encounter Visit Diagnoses Not on filedocumented in this encounter Additional Health Concerns Assessment Noted Time PHQ-9 Depression Total Score: 5 04/29/2016 10:10 AM CS T documented as of this encounter
--- OUTSIDE RECORDS SUMMARY | 2022-01-25 16:33 | XMS_ITS | Encounter Summary ---
:1955 Author Organization [facility] Address [address] [place] [address] Care Team Providers Name Role Phone Unavailable Primary Care Provider Unavailable Encounter Details Date Type Department Care Team Description 04/22/2019 Clinical Communication Department of Physical Catarina Garcia, Medicine and R.N. Rehabilitation in [address] [place], [place] [address] [place] [phone] [place] [phone] Social History Tobacco Use Types Packs/Day [...] do you attend lutheran or Never 2021 anabaptist services? 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 [address] [place], [place] [phone] (Wo rk) documented as of this encounter Visit Diagnoses Not on filedocumented in this encounter Additional Health Concerns Assessment Noted Time PHQ-9 Depression Total Score: 5 04/29/2016 10:10 AM CS T documented as of this encounter
--- OUTSIDE RECORDS SUMMARY | 2022-01-25 16:33 | XMS_ITS | Encounter Summary ---
:1955 Author Organization [facility] Address [address] [place] [address] Care Team Providers Name Role Phone Unavailable Primary Care Provider Unavailable Encounter Details Date Type Department Care Team Description 01/01/2018 Clinical Communication Department of Physical Richard, Ida Medicine and K Rehabilitation in [address] [place] [address] [place] [address] [place] [phone] [phone] Social History Tobacco Use Types Packs/Day Years [...] do you attend spiritism or Never 2021 amish services? Do you [...] Orthopedic Surgery Deon Herrera M.D. [address] [place], [place] [phone] (Wo rk) documented as of this encounter Visit Diagnoses Not on filedocumented in this encounter Additional Health Concerns Assessment Noted Time PHQ-9 Depression Total Score: 5 04/29/2016 10:10 AM CS T documented as of this encounter
--- OUTSIDE RECORDS SUMMARY | 2022-01-25 16:33 | XMS_ITS | Encounter Summary ---
:1955 Author Organization [facility] Address [address] [place] [address] Care Team Providers Name Role Phone Unavailable Primary Care Provider Unavailable Encounter Details Date Type Department Care Team Description 01/20/2018 Hospital Encounter Department of Dominic, Henry Incont inence Fecal Radiology, [facility] [address] [place] [address] [place], [place] [phone] (Work) [phone] Social History Tobacco Use Types Packs/Day Years [...] do you attend congregation or Never 2021 sabianism services? Do you [...] Garcia in PM&R as she worked with [facility] for 2 weeks. Elida will reach out to [facility] to discuss further strategies. No additional testing needed for now. [place] SOLAR ADVISOR documented in this encounter Nursing Notes Ida [...] ordered and outlined in medication reference document. [place] SOLAR ADVISOR Ida Torrez R.N. - 01/20/2018 8:10 AM CST Does patient have known or suspected rectal perforation? No If no???continue Has patient had past rectal surgeries? No If no???continue Prepare and administered as ordered and outlined in medication reference document. [place] SOLAR ADVISOR documented in this encounter Plan of Treatment Upcoming Encounters Date Type Specialty Care Team Description 02/04/2022 Office Visit Orthopedic Surgery Deon Herrera M.D. [address] [place], [place] [phone] (Wo rk) documented as of this encounter Procedures Procedure Name Priority Date/Time Associated Comments Diagnosis MR PROCTOGRAM RAD - Routine 01/20/2018 9:29 Incontinence Fecal Resu lts for this DYNAMIC AND (most inpatients AM RETAIL SOLAR ADVISOR procedure a re in SPHINCTER EVAL and all the results WITHOUT IV outpatients) section. CONTRAST documented in this encounter Results MR Proctogram Dynamic and Sphincter Eval without IV Contrast (01/20/2018 9:29 AM RETAIL SOLAR ADVISOR) Anatomical Region Laterality Modality Abdomen, Pelvis, Abdominal RST LOS, Abdominal ARZ LOS, N/A Magnetic Resonance Abdominal FLA LOS Specimen (Source) Anatomical Collection Method Collection Time Re ceived Time Location / / Volume Laterality 01/20/2018 2:31 PM RETAIL SOLAR ADVISOR Impressions 01/20/2018 2:48 PM RETAIL SOLAR ADVISOR IMPRESSION: ?? 1. Abnormal defecation with paradoxical contraction of the puborectalis during attempted evacuation. 2. No MRI findings of pelvic floor weakn ess. 3. Normal MRI appearance of the anal sph incters. Narrative 01/20/2018 2:48 PM RETAIL SOLAR ADVISOR EXAM: ??MR PROCTOGRAM DYNAMIC AND SPHINCTER EVAL [...] 2 % topical Given 01/20/2018 8:15 AM RETAIL SOLAR ADVISOR 1 applica tion jelly 1 application (UROJET) 1 application (5 mL), rectal, Once, On Fri01/20/18 at 0830, For 1 dose, Imaging Protocol Orders ultrasound gel topical gel 60-180 mL Given 01/20/2018 8:45 AM RETAIL SOLAR ADVISOR 180 mL 60-180 mL, rectal, Once, On Fri01/20/18 at 0830, For 1 dose, Imaging Protocol Orders, Dose per Radiant Medication Guidelines documented in this encounter Additional Health Concerns Assessment Noted Time PHQ-9 Depression Total Score: 5 04/29/2016 10:10 AM CS T documented as of this encounter
--- OUTSIDE RECORDS SUMMARY | 2022-01-25 16:33 | XMS_ITS | Encounter Summary ---
:1955 Author Organization [facility] Address [address] [place] [address] Care Team Providers Name Role Phone Unavailable Primary Care Provider Unavailable Reason for Referral MRI/CAT/PET Scan (Routine) - Closed Specialty Diagnoses / Procedures Referred By Contact Refer red To Contact Radiology Diagnoses Neuralgia Trigeminal Meghna Valdez M.D., [facility] [place] Procedures MR Face without and with IV Contrast MR Brain without IV Contrast HI MRI BRAIN WO CNTRST HC MRI BRAIN WO CNTRST M.P.H. [address] [place] [phone] Referral ID Status Reason Start Date Expiration Date Visits Requ ested Visits Authorized [id number] Closed 06/13/2020 06/13/2021 1 1 Outpatient (Routine) - Closed Specialty Diagnoses / Procedures Referred By Contact Refer red To Contact Neurology Meghna Valdez M.D ., M.P.H. [facility] [place] [address] [place] [phone] Referral ID Status Reason Start Date Expiration Date Visits Requ ested Visits Authorized [id number] Closed 06/13/2020 06/13/2021 1 1 Outpatient (Routine) - Closed Specialty Diagnoses / Procedures Referred By Contact Trisha herman To Contact Pain Medicine Diagnoses Neuralgia Trigeminal Meghna Valdez M.D., [facility] M.P.H. [address] [place] [phone] Referral ID Status Reason Start Date Expiration Date Visits V isits Requested Authorized [id number] Closed Specialty 06/13/2020 06/13/2021 1 1 Services Required Reason for Visit Reason Comments Trigeminal neuralgia pain follow up . Would like refer ral to [place] as recommended Outpatient (Routine) - Closed Specialty Diagnoses / Procedures Referred By Contact Trisha herman To Contact Neurology Meghna Valdez M.D ., M.P.H. [facility] [address] [place] [phone] Referral ID Status Reason Start Date Expiration Date Visits Requ ested Visits Authorized [id number] Closed 06/09/2020 06/09/2021 1 1 Encounter Details Date Type Department Care Team Description 06/13/2020 Office Visit Department of Meghna Valdez, Neuralgia Trigeminal Neurology in [place], M.P.H. (Primary Dx) [place], [place] [address] [phone] [phone] Social History Tobacco Use Types Packs/Day Years [...] (follow up . Would like referral to [facility] as recommended). HISTORY OF PRESENT ILLNESS This [...] , Disp: , Rfl: ??? MICROLET LANCET [facility], 2 (two) times a day. for testing, [...] file Gets together: Not on file Attends adventism service: Not on file Active member of [...] Alert and oriented x 4. 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 She has no [...] going to send the patient down to [place] to get a pain consultation since she [...] Office Visit Orthopedic Surgery Deon Herrera M.D. [address] [place] [phone] (Wo rk) Scheduled Referrals Name Type [...] Modality Head, Neuroradiology RST LOS, Neuroradiology ARZ [facility], N/A Magnetic Resonance Neuroradiology FLA [facility] Specimen (Source) Anatomical Collection Method Collection [...] from chronic microangiopathy, though can be from automobile engine assembler amie central pontine myelolysis. Moderate chronic microangiopathy [...] from chronic microangiopathy, though can be from automobile engine assembler amie central pontine myelolysis. Moderate chronic microangiopathy [...]
--- OUTSIDE RECORDS SUMMARY | 2022-01-25 16:33 | XMS_ITS | Encounter Summary ---
:1955 Author Organization [facility] Address [address] [place] [address] Care Team Providers Name Role Phone Unavailable Primary Care Provider Unavailable Reason for Visit Appointment Request (Routine) - Canceled Specialty Diagnoses / Procedures Referred By Contact Refer red To Contact Henry Alfaro M. B.B.S. [address] [place] [phone] Referral ID Status Reason Start Date Expiration Date Visits V isits Requested Authorized [id number] Canceled 10/06/2017 10/06/2018 1 Encounter Details Date Type Department Care Team Description 12/19/2017 Nurse Only Department of Physical Henry Alfaro M.B.B.S. [address] [place] [phone] Medicine and Rehabilitation in Elida Garcia R.N. [address] [place] [phone] [place], [place] [address] [place] [phone] Social History Tobacco Use Types Packs/Day [...] do you attend christianity or Never 2021 restoration services? Do you belong to any clubs or Yes 12/12/2021 organizations such as christianity groups, unions, fraFAST FELT or athletic groups, or school groups? How [...] Orthopedic Surgery Deon Herrera M.D. [address] [place], [place] [phone] (Wo rk) documented as of this encounter Visit Diagnoses Diagnosis Dysfunction Pelvic Floor Female documented in this encounter Additional Health Concerns Assessment Noted Time PHQ-9 Depression Total Score: 5 04/29/2016 10:10 AM CS T documented as of this encounter
--- OUTSIDE RECORDS SUMMARY | 2022-01-25 16:33 | XMS_ITS | Encounter Summary ---
:1955 Author Organization [facility] Address [address] [place] [address] Care Team Providers Name Role Phone Unavailable Primary Care Provider Unavailable Encounter Details Date Type Department Care Team Description 06/08/2020 Clinical Communication Department of Sleep Meghna Valdez, Medicine in [place] Garza, M.P .H. [place] [address] [place] [phone] Social History Tobacco Use Types Packs/Day Years [...] do you attend catholic or Never 2021 yazidism services? Do you [...] Orthopedic Surgery Deon Herrera M.D. [address] [place] [phone] (Wo rk) documented as of this encounter Visit Diagnoses Not on filedocumented in this encounter Additional Health Concerns Assessment Noted Time PHQ-9 Depression Total Score: 5 04/29/2016 10:10 AM CS T documented as of this encounter
--- OUTSIDE RECORDS SUMMARY | 2022-01-25 16:33 | XMS_ITS | Encounter Summary ---
:1955 Author Organization [facility] Address [address] [place] [address] Care Team Providers Name Role Phone Unavailable Primary Care Provider Unavailable Reason for Visit Appointment Request (Routine) - Canceled Specialty Diagnoses / Procedures Referred By Contact Refer red To Contact Henry Alfaro M. B.B.S. [address] [place] [phone] Referral ID Status Reason Start Date Expiration Date Visits V isits Requested Authorized [id number] Canceled 10/06/2017 10/06/2018 1 Encounter Details Date Type Department Care Team Description 12/18/2017 Nurse Only Department of Physical Henry Alfaro M.B.B.S. [address] [place] [phone] Medicine and Rehabilitation in Elida Garcia R.N. [address] [place] [phone] [place], [place] [address] [place] [phone] Social History Tobacco Use Types Packs/Day [...] do you attend christianity or Never 2021 mu-ism services? Do you belong to any clubs or Yes 12/12/2021 organizations such as christianity groups, unions, fraNorthwest Medical Isotopes or athletic groups, or school groups? How [...] Orthopedic Surgery Deon Herrera M.D. [address] [place], [place] [phone] (Wo rk) documented as of this encounter Visit Diagnoses Diagnosis Dysfunction Pelvic Floor Female documented in this encounter Additional Health Concerns Assessment Noted Time PHQ-9 Depression Total Score: 5 04/29/2016 10:10 AM CS T documented as of this encounter
--- OUTSIDE RECORDS SUMMARY | 2022-01-25 16:33 | XMS_ITS | Encounter Summary ---
:1955 Author Organization [facility] Address [address] [place] [address] Care Team Providers Name Role Phone Unavailable Primary Care Provider Unavailable Encounter Details Date Type Department Care Team Description 05/18/2020 Orders Only Department of Neurology in Meghna Valdez M.D.[place], [place] M.P.H. [address] [place] [address] [address] [place] [address] [place], [place] [phone] (Wo rk) Social History Tobacco Use [...] do you attend druze or Never 2021 jewish services? Do you [...] Visit Orthopedic Surgery Deon Herrera M.D. [address] [place] [phone] (Wo rk) documented as of this encounter Visit Diagnoses Not on filedocumented in this encounter Additional Health Concerns Assessment Noted Time PHQ-9 Depression Total Score: 5 04/29/2016 10:10 AM CS T documented as of this encounter
--- OUTSIDE RECORDS SUMMARY | 2022-01-25 16:33 | XMS_ITS | Encounter Summary ---
:1955 Author Organization [facility] Address [address] [place] [address] Care Team Providers Name Role Phone Unavailable Primary Care Provider Unavailable Encounter Details Date Type Department Care Team Description 05/19/2020 Immunization Department of Family Medicine, [address] [address] [place] [phone] Social History Tobacco Use Types Packs/Day Years [...] do you attend tenriism or Never 2021 restorationist services? Do you [...] Orthopedic Surgery Deon Herrera M.D. [address] [place], [place] [phone] (Wo rk) documented as of this encounter Visit Diagnoses Not on filedocumented in this encounter Additional Health Concerns Assessment Noted Time PHQ-9 Depression Total Score: 5 04/29/2016 10:10 AM CS T documented as of this encounter
--- OUTSIDE RECORDS SUMMARY | 2022-01-25 16:34 | XMS_ITS | Encounter Summary ---
:1955 Author Organization [facility] Address [address] [place] [address] Care Team Providers Name Role Phone Unavailable Primary Care Provider Unavailable Reason for Visit Reason Comments Toe Pain left first toe infection Encounter Details Date Type Department Care Team Description 09/24/2017 Emergency [facility] Kermit Be Ingrown Toenail Emergency Department D.O. (Primary Dx) [address] [place] [address] [address] [place] [phone] (Wo rk) Social History Tobacco Use Types [...] do you attend gnosticism or Never 2021 voodoo services? Do you [...] be sent through Care Everywhere. Ingrown Toenail (Bahamian)documented in this encounter Medications at Time of [...] Review of Systems. Kermit Be D.O. 09/24/17 1441 Kermit Be D.O. 09/24/17 7141 documented in this encounter Plan of Treatment Upcoming Encounters Date Type Specialty Care Team Description 02/04/2022 Office Visit Orthopedic Surgery Deon Herrera M.D. [address] [place] [phone] (Wo rk) documented as of this [...] mg/mL) injection 150 mg (MARCAINE) (COMP LETED) 1418 (Given - Provider: Ronda Ramírez R.N.) 150 mg (30 mL), infiltration, Once, On Fri09/24/17 at 1443, For 1 dose documented in this encounter Additional Health Concerns Assessment Noted Time PHQ-9 Depression Total Score: 5 04/29/2016 10:10 AM CS T documented as of this encounter
--- OUTSIDE RECORDS SUMMARY | 2022-01-25 16:34 | XMS_ITS | Encounter Summary ---
:1955 Author Organization [facility] Address [address] [place] [address] Care Team Providers Name Role Phone Unavailable Primary Care Provider Unavailable Encounter Details Date Type Department Care Team Description 10/22/2017 Clinical Communication Department of Physical Richard, Ida Medicine and K Rehabilitation in [address] [place] [address] [place] [phone] [place] [phone] [phone] Social History Tobacco Use Types Packs/Day Years [...] do you attend episcopal or Never 2021 druze services? Do you [...] Orthopedic Surgery Deon Herrera M.D. [address] [place], [place] [phone] (Wo rk) documented as of this encounter Visit Diagnoses Not on filedocumented in this encounter Additional Health Concerns Assessment Noted Time PHQ-9 Depression Total Score: 5 04/29/2016 10:10 AM CS T documented as of this encounter
--- OUTSIDE RECORDS SUMMARY | 2022-01-25 16:34 | XMS_ITS | Encounter Summary ---
:1955 Author Organization [facility] Address [address] [place] [address] Care Team Providers Name Role Phone Unavailable Primary Care Provider Unavailable Reason for Visit Reason Comments Patient Education Appointment Request (Routine) - Closed Specialty Diagnoses / Procedures Referred By Contact Refer red To Contact Patient Education Referral ID Status Reason Start Date Expiration Date Visits Requ ested Visits Authorized [id number] Closed 11/25/2017 11/25/2018 1 1 Encounter Details Date Type Department Care Team Description 12/10/2017 Education Department of Patient [facility] in [place], [address] [place] [address] [address] [facility] [address] [place] [address] [phone] Social History Tobacco Use Types Packs/Day Years [...] do you attend hinduism or Never 2021 tenriism services? Do you [...] Orthopedic Surgery Deon Herrera M.D. [address] [place], [place] [phone] (Wo rk) documented as of this encounter Visit Diagnoses Not on filedocumented in this encounter Additional Health Concerns Assessment Noted Time PHQ-9 Depression Total Score: 5 04/29/2016 10:10 AM CS T documented as of this encounter
--- OUTSIDE RECORDS SUMMARY | 2022-01-25 16:34 | XMS_ITS | Encounter Summary ---
:1955 Author Organization [facility] Address [address] [place] [address] 15193 Care Team Providers Name Role Phone Unavailable Primary Care Provider Unavailable Reason for Visit Appointment Request (Routine) - Canceled Specialty Diagnoses / Procedures Referred By Contact Refer red To Contact Henry Alfaro M. B.B.S. [address] [place] [phone] Referral ID Status Reason Start Date Expiration Date Visits V isits Requested Authorized [id number] Canceled 10/06/2017 10/06/2018 1 Encounter Details Date Type Department Care Team Description 12/08/2017 Nurse Only Department of Physical Henry Alfaro M.B.B.S. [address] [place] [phone] Medicine and Rehabilitation in Elida Garcia R.N. [address] [place] [address] [phone] [place], [place] [address] [place] [address] [phone] Social History Tobacco Use Types Packs/Day [...] do you attend evangelical or Never 2021 muslim services? Do you belong to any clubs or Yes 12/12/2021 organizations such as evangelical groups, unions, fraThoroughCare or athletic groups, or school groups? How [...] small BMs a day that are [place] Type 2 or 4. Stool is more [...] Of note, the patient participated in the [facility] three week Pain Rehabilitation Program three yeas ago and says it was life changing. PHYSICAL EVALUATION Proceeded with EMG assessment of the pelvic floor muscles. Position of the patient: Side-lying Equipment used: [employer] rectal sensor and [employer] EMG biofeedback [...] home program for continuing the above goals. jail goal: At the end of the two week Home Program she will verbalize an easier, less time consuming, bowel movements. Bowel and Bladder Outcome Measure Scores at Intake: Not completed. Elida Garcia R.N. 12/08/2017 9:11 AM documented in this encounter Plan of Treatment Upcoming Encounters Date Type Specialty Care Team Description 02/04/2022 Office Visit Orthopedic Surgery Deon Herrera M.D. [address] [place], [place] [phone] (Wo rk) documented as of this encounter Visit Diagnoses Diagnosis Dysfunction Pelvic Floor Female documented in this encounter Additional Health Concerns Assessment Noted Time PHQ-9 Depression Total Score: 5 04/29/2016 10:10 AM CS T documented as of this encounter
--- OUTSIDE RECORDS SUMMARY | 2022-01-25 16:34 | XMS_ITS | Encounter Summary ---
:1955 Author Organization [facility] Address [address] [place] [address] Care Team Providers Name Role Phone Unavailable Primary Care Provider Unavailable Encounter Details Date Type Department Care Team Description 12/12/2017 Clinical Communication Division of Elida Garcia, Gastroenterology in [place], [place] [address] [facility] [address] [place] [phone] Social History Tobacco Use Types Packs/Day Years [...] do you attend holiness or Never 2021 oriental orthodox services? Do [...] Orthopedic Surgery Deon Herrera M.D. [address] [place], [place] [phone] (Wo rk) documented as of this encounter Visit Diagnoses Not on filedocumented in this encounter Additional Health Concerns Assessment Noted Time PHQ-9 Depression Total Score: 5 04/29/2016 10:10 AM CS T documented as of this encounter
--- OUTSIDE RECORDS SUMMARY | 2022-01-25 16:34 | XMS_ITS | Encounter Summary ---
:1955 Author Organization [facility] Address [address] [place] [address] 37546 Care Team Providers Name Role Phone Unavailable Primary Care Provider Unavailable Reason for Visit Appointment Request (Routine) - Canceled Specialty Diagnoses / Procedures Referred By Contact Refer red To Contact Henry Alfaro M. B.B.S. [address] [place] [address] [phone] Referral ID Status Reason Start Date Expiration Date Visits V isits Requested Authorized [id number] Canceled 10/06/2017 10/06/2018 1 Encounter Details Date Type Department Care Team Description 12/17/2017 Nurse Only Department of Physical Henry Alfaro M.B.B.S. [address] [place] [phone] Medicine and Rehabilitation in Elida Garcia R.N. [address] [place] [address] [phone] [place], [place] [address] [place] [address] [phone] Social History Tobacco Use Types Packs/Day [...] 12/12/2021 organizations such as hindu groups, unions, fraWinshuttle or athletic groups, or school groups? How [...] Orthopedic Surgery Deon Herrera M.D. [address] [place] [address] [phone] (Wo rk) documented as of this encounter Visit Diagnoses Diagnosis Dysfunction Pelvic Floor Female documented in this encounter Additional Health Concerns Assessment Noted Time PHQ-9 Depression Total Score: 5 04/29/2016 10:10 AM CS T documented as of this encounter
--- OUTSIDE RECORDS SUMMARY | 2022-01-25 16:34 | XMS_ITS | Encounter Summary ---
:1955 Author Organization [facility] Address [address] [place] [address] Care Team Providers Name Role Phone Unavailable Primary Care Provider Unavailable Reason for Visit Reason Onset Date Comments pelvic floor dysfunction 09/29/2017 Constipation 09/29/2017 Encounter Details Date Type Department Care Team Description 09/29/2017 Clinical Department of Physical Henry Alfaro M.B.B.S. [address] [place] [address] [phone] pelvic floor Communication Medicine and Cecilia Arreaga, [facility] [address] [place] [phone] dysfunction; Rehabilitation in [place], [place] [address] [place] [phone] Social History Tobacco Use Types Packs/Day Years [...] do you attend christianity or Never 2021 episcopal services? Do you [...] ? Pt ok to proceed Referral # [id number] RADHA Tellez Telephone Encounter - Linda Cardoso [...] assessed using the [facility] Disorders Program Assessment ([id number]). 1. In the last week has Ms. [...] Orthopedic Surgery Deon Herrera M.D. [address] [place] [address] [phone] ( ligia) documented as of this encounter Visit Diagnoses Not on filedocumented in this encounter Additional Health Concerns Assessment Noted Time PHQ-9 Depression Total Score: 5 04/29/2016 10:10 AM CS T documented as of this encounter
--- OUTSIDE RECORDS SUMMARY | 2022-01-25 16:34 | XMS_ITS | Encounter Summary ---
:1955 Author Organization [facility] Address [address] [place] [address] Care Team Providers Name Role Phone Unavailable Primary Care Provider Unavailable Reason for Visit Appointment Request (Routine) - Canceled Specialty Diagnoses / Procedures Referred By Contact Refer red To Contact Henry Alfaro M. B.B.S. [address] [place] [phone] Referral ID Status Reason Start Date Expiration Date Visits V isits Requested Authorized [id number] Canceled 10/06/2017 10/06/2018 1 Encounter Details Date Type Department Care Team Description 12/09/2017 Nurse Only Department of Physical Henry Alfaro M.B.B.S. [address] [place] [phone] Medicine and Rehabilitation in Elida Garcia R.N. [address] [place] [address] [phone] [place], [place] [address] [place] [address] [phone] Social History Tobacco Use Types Packs/Day [...] do you attend pentecostal or Never 2021 denominational services? Do you belong to any clubs or Yes 12/12/2021 organizations such as pentecostal groups, unions, fraParasol Therapeutics or athletic groups, or school groups? How [...] Office Visit Orthopedic Surgery Deon Herrera M.D. [address] [place] [address] [phone] (Wo rk) documented as of this encounter Visit Diagnoses Diagnosis Dysfunction Pelvic Floor Female documented in this encounter Additional Health Concerns Assessment Noted Time PHQ-9 Depression Total Score: 5 04/29/2016 10:10 AM CS T documented as of this encounter
--- OUTSIDE RECORDS SUMMARY | 2022-01-25 16:34 | XMS_ITS | Encounter Summary ---
:1955 Author Organization [facility] Address [address] [place] [address] Care Team Providers Name Role Phone Unavailable Primary Care Provider Unavailable Reason for Visit Appointment Request (Routine) - Canceled Specialty Diagnoses / Procedures Referred By Contact Refer red To Contact Henry Alfaro M. B.B.S. [address] [place] [phone] Referral ID Status Reason Start Date Expiration Date Visits V isits Requested Authorized [id number] Canceled 10/06/2017 10/06/2018 1 Encounter Details Date Type Department Care Team Description 12/11/2017 Nurse Only Department of Physical Henry Alfaro M.B.B.S. [address] [place] [phone] Medicine and Rehabilitation in Elida Garcia R.N. [address] [place] [address] [phone] [place], [place] [address] [place] [address] [phone] Social History Tobacco Use Types Packs/Day [...] 12/12/2021 organizations such as taoist groups, unions, fraArrively or athletic groups, or school groups? How [...] ASSESSMENT / PLAN Yaz worked with the [employer] EMG biofeedback equipment last evening sitting on [...] Orthopedic Surgery Deon Herrera M.D. [address] [place], [place] [phone] (Wo ) documented as of this encounter Visit Diagnoses Diagnosis Dysfunction Pelvic Floor Female documented in this encounter Additional Health Concerns Assessment Noted Time PHQ-9 Depression Total Score: 5 04/29/2016 10:10 AM CS T documented as of this encounter
--- OUTSIDE RECORDS SUMMARY | 2022-01-25 16:34 | XMS_ITS | Encounter Summary ---
:1955 Author Organization [facility] Address [address] [place] [address] 9[address]98 Care Team Providers Name Role Phone Unavailable Primary Care Provider Unavailable Reason for Visit Appointment Request (Routine) - Canceled Specialty Diagnoses / Procedures Referred By Contact Refer red To Contact Henry Alfaro M. B.B.S. [address] [place] [address] [phone] Referral ID Status Reason Start Date Expiration Date Visits V isits Requested Authorized [id number] Canceled 10/06/2017 10/06/2018 1 Encounter Details Date Type Department Care Team Description 12/16/2017 Nurse Only Department of Physical Henry Alfaro M.B.B.S. [address] [place] [phone] Medicine and Rehabilitation in Elida Garcia R.N. [address] [place] [address] [phone] [place], [place] [address] [place] [address] [phone] Social History Tobacco Use Types Packs/Day [...] do you attend confucianism or Never 2021 yazdanism services? Do you belong to any clubs or Yes 12/12/2021 organizations such as confucianism groups, unions, fraEnergy Automation System or athletic groups, or school groups? 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 I wonder [...]
--- OUTSIDE RECORDS SUMMARY | 2022-01-25 16:34 | XMS_ITS | Encounter Summary ---
:1955 Author Organization [facility] Address [address] [place] [address] 38763 Care Team Providers Name Role Phone Unavailable Primary Care Provider Unavailable Reason for Visit Appointment Request (Routine) - Canceled Specialty Diagnoses / Procedures Referred By Contact Refer red To Contact Henry Alfaro M. B.B.S. [address] [place] [address] [phone] Referral ID Status Reason Start Date Expiration Date Visits V isits Requested Authorized [id number] Canceled 10/06/2017 10/06/2018 1 Encounter Details Date Type Department Care Team Description 12/10/2017 Nurse Only Department of Physical Henry Alfaro M.B.B.S. [address] [place] [phone] Medicine and Rehabilitation in Elida Garcia R.N. [address] [place] [address] [phone] [place], [place] [address] [place] [address] [phone] Social History Tobacco Use Types Packs/Day [...] do you attend adventism or Never 2021 yazidi services? Do you belong to any clubs or Yes 12/12/2021 organizations such as adventism groups, unions, fraHorse Creek Entertainment or athletic groups, or school groups? How [...] had large results initially liquid, ending with [place] Type 3. She did not need to [...] has decreased sensation, which I did not sampler pickup on. I will discuss my findings with her GI doctor. Elida Garcia R.N. 12/10/2017 8:36 AM documented in this encounter Plan of Treatment Upcoming Encounters Date Type Specialty Care Team Description 02/04/2022 Office Visit Orthopedic Surgery eDon Herrera M.D. [address] [place], [place] [phone] (Wo rk) documented as of this encounter Visit Diagnoses Diagnosis Dysfunction Pelvic Floor Female documented in this encounter Additional Health Concerns Assessment Noted Time PHQ-9 Depression Total Score: 5 04/29/2016 10:10 AM CS T documented as of this encounter
--- OUTSIDE RECORDS SUMMARY | 2022-01-25 16:34 | XMS_ITS | Encounter Summary ---
:1955 Author Organization [facility] Address [address] [place] [address] 7[address] Care Team Providers Name Role Phone Unavailable Primary Care Provider Unavailable Reason for Visit Appointment Request (Routine) - Canceled Specialty Diagnoses / Procedures Referred By Contact Refer red To Contact Henry Alfaro M. B.B.S. [address] [place] [address] [phone] Referral ID Status Reason Start Date Expiration Date Visits V isits Requested Authorized [id number] Canceled 10/06/2017 10/06/2018 1 Encounter Details Date Type Department Care Team Description 12/09/2017 Nurse Only Department of Physical Henry Alfaro M.B.B.S. [address] [place] [phone] Medicine and Rehabilitation in Elida Garcia R.N. [address] [place] [address] [phone] [place], [place] [address] [place] [address] [phone] Social History Tobacco Use Types Packs/Day [...] do you attend hoahaoism or Never 2021 bahai services? Do you belong to any clubs or Yes 12/12/2021 organizations such as hoahaoism groups, unions, fraRenRen Headhunting or athletic groups, or school groups? How [...] Orthopedic Surgery Deon Herrera M.D. [address] [place], [place] [phone] (Wo rk) documented as of this encounter Visit Diagnoses Diagnosis Dysfunction Pelvic Floor Female documented in this encounter Additional Health Concerns Assessment Noted Time PHQ-9 Depression Total Score: 5 04/29/2016 10:10 AM CS T documented as of this encounter
--- OUTSIDE RECORDS SUMMARY | 2022-01-25 16:34 | XMS_ITS | Encounter Summary ---
:1955 Author Organization [facility] Address [address] [place] [address] 0[address]67 Care Team Providers Name Role Phone Unavailable Primary Care Provider Unavailable Reason for Visit Appointment Request (Routine) - Canceled Specialty Diagnoses / Procedures Referred By Contact Refer red To Contact Henry Alfaro M. B.B.S. [address] [place] [address] [phone] Referral ID Status Reason Start Date Expiration Date Visits V isits Requested Authorized [id number] Canceled 10/06/2017 10/06/2018 1 Encounter Details Date Type Department Care Team Description 12/09/2017 Nurse Only Department of Physical Henry Alfaro M.B.B.S. [address] [place] [phone] Medicine and Rehabilitation in Elida Garcia R.N. [address] [place] [address] [phone] [place], [place] [address] [place] [address] [phone] Social History Tobacco Use Types Packs/Day [...] do you attend caodaism or Never 2021 mormonism services? Do you belong to any clubs or Yes 12/12/2021 organizations such as caodaism groups, unions, fraPacific DataVision or athletic groups, or school groups? How [...] Orthopedic Surgery Deon Herrera M.D. [address] [place], [place] [phone] (Wo rk) documented as of this encounter Visit Diagnoses Diagnosis Dysfunction Pelvic Floor Female documented in this encounter Additional Health Concerns Assessment Noted Time PHQ-9 Depression Total Score: 5 04/29/2016 10:10 AM CS T documented as of this encounter
--- OUTSIDE RECORDS SUMMARY | 2022-01-25 16:34 | XMS_ITS | Encounter Summary ---
:1955 Author Organization [facility] Address [address] [place] [address] Care Team Providers Name Role Phone Unavailable Primary Care Provider Unavailable Encounter Details Date Type Department Care Team Description 12/12/2017 Orders Only Division of Dominic, Henry Incontinence Fecal Gastroenterology in [place], [place] [address] [facility] [address] [place] [phone] Social History Tobacco Use Types Packs/Day Years [...] do you attend baptist or Never 2021 alevism services? Do you [...] Orthopedic Surgery Deon Herrera M.D. [address] [place] [address] [phone] (Wo rk) documented as of this encounter Results MR Proctogram Dynamic and Sphincter Eval without IV Contrast (01/20/2018 9:29 AM BILLING MANAGER) Anatomical Region Laterality Modality Abdomen, Pelvis, Abdominal RST LOS, Abdominal ARZ LOS, N/A Magnetic Resonance Abdominal FLA LOS Specimen (Source) Anatomical Collection Method Collection Time Re ceived Time Location / / Volume Laterality 01/20/2018 2:31 PM BILLING MANAGER Impressions 01/20/2018 2:48 PM BILLING MANAGER IMPRESSION: ?? 1. Abnormal defecation with paradoxical contraction of the puborectalis during attempted evacuation. 2. No MRI findings of pelvic floor weakn ess. 3. Normal MRI appearance of the anal sph incters. Narrative 01/20/2018 2:48 PM BILLING MANAGER EXAM: ??MR PROCTOGRAM DYNAMIC AND SPHINCTER EVAL [...]
--- OUTSIDE RECORDS SUMMARY | 2022-01-25 16:34 | XMS_ITS | Encounter Summary ---
:1955 Author Organization [facility] Address [address] [place] [address] 28869 Care Team Providers Name Role Phone Unavailable Primary Care Provider Unavailable Reason for Visit Appointment Request (Routine) - Canceled Specialty Diagnoses / Procedures Referred By Contact Refer red To Contact Henry Alfaro M. B.B.S. [address] [place] [phone] Referral ID Status Reason Start Date Expiration Date Visits V isits Requested Authorized [id number] Canceled 10/06/2017 10/06/2018 1 Encounter Details Date Type Department Care Team Description 12/12/2017 Nurse Only Department of Physical Henry Alfaro M.B.B.S. [address] [place] [phone] Medicine and Rehabilitation in Elida Garcia R.N. [address] [place] [address] [phone] [place], [place] [address] [place] [address] [phone] Social History Tobacco Use Types Packs/Day [...] do you attend bahai or Never 2021 sikhism services? Do you belong to any clubs or Yes 12/12/2021 organizations such as bahai groups, unions, fraAffinity Therapeutics or athletic groups, or school groups? [...] Office Visit Orthopedic Surgery Deon Herrera M.D. [address] [place] [address] [phone] (Wo rk) documented as of this encounter Visit Diagnoses Diagnosis Dysfunction Pelvic Floor Female documented in this encounter Additional Health Concerns Assessment Noted Time PHQ-9 Depression Total Score: 5 04/29/2016 10:10 AM CS T documented as of this encounter
--- OUTSIDE RECORDS SUMMARY | 2022-01-25 16:34 | XMS_ITS | Encounter Summary ---
:1955 Author Organization [facility] Address [address] [place] [address] 11731 Care Team Providers Name Role Phone Unavailable Primary Care Provider Unavailable Reason for Visit Appointment Request (Routine) - Canceled Specialty Diagnoses / Procedures Referred By Contact Refer red To Contact Henry Alfaro M. B.B.S. [address] [place] [address] [phone] Referral ID Status Reason Start Date Expiration Date Visits V isits Requested Authorized [id number] Canceled 10/06/2017 10/06/2018 1 Encounter Details Date Type Department Care Team Description 12/10/2017 Nurse Only Department of Physical Henry Alfaro M.B.B.S. [address] [place] [phone] Medicine and Rehabilitation in Elida Garcia R.N. [address] [place] [address] [phone] [place], [place] [address] [place] [address] [phone] Social History Tobacco Use Types Packs/Day [...] do you attend anabaptism or Never 2021 jain services? Do you belong to any clubs or Yes 12/12/2021 organizations such as anabaptism groups, unions, fraDole Tian or athletic groups, or school groups? How [...] Office Visit Orthopedic Surgery Deon Herrera M.D. [address] [place] [address] [phone] (Wo rk) documented as of this encounter Visit Diagnoses Diagnosis Dysfunction Pelvic Floor Female documented in this encounter Additional Health Concerns Assessment Noted Time PHQ-9 Depression Total Score: 5 04/29/2016 10:10 AM CS T documented as of this encounter
--- OUTSIDE RECORDS SUMMARY | 2022-01-25 16:34 | XMS_ITS | Encounter Summary ---
:1955 Author Organization [facility] Address [address] [place] [address] Care Team Providers Name Role Phone Unavailable Primary Care Provider Unavailable Reason for Visit Appointment Request (Routine) - Canceled Specialty Diagnoses / Procedures Referred By Contact Refer red To Contact Henry Alfaro M. B.B.S. [address] [place] [address] [phone] Referral ID Status Reason Start Date Expiration Date Visits V isits Requested Authorized [id number] Canceled 10/06/2017 10/06/2018 1 Encounter Details Date Type Department Care Team Description 12/15/2017 Nurse Only Department of Physical Henry Alfaro M.B.B.S. [address] [place] [phone] Medicine and Rehabilitation in Elida Garcia R.N. [address] [place] [address] [phone] [place], [place] [address] [place] [address] [phone] Social History Tobacco Use Types Packs/Day [...] do you attend gnosticism or Never 2021 judaism services? Do you belong to any clubs or Yes 12/12/2021 organizations such as gnosticism groups, unions, fraOpenSesame or athletic groups, or school groups? How [...] a great weekend. She worked with the [employer] EMG biofeedback equipment on Friday and the [...] Orthopedic Surgery Deon Herrera M.D. [address] [place], [place] [phone] (Wo rk) documented as of this encounter Visit Diagnoses Diagnosis Dysfunction Pelvic Floor Female documented in this encounter Additional Health Concerns Assessment Noted Time PHQ-9 Depression Total Score: 5 04/29/2016 10:10 AM CS T documented as of this encounter
--- OUTSIDE RECORDS SUMMARY | 2022-01-25 16:34 | XMS_ITS | Encounter Summary ---
:1955 Author Organization [facility] Address [address] [place] [address] 9[address] Care Team Providers Name Role Phone Unavailable Primary Care Provider Unavailable Reason for Visit Appointment Request (Routine) - Canceled Specialty Diagnoses / Procedures Referred By Contact Refer red To Contact Henry Alfaro M. B.B.S. [address] [place] [address] [phone] Referral ID Status Reason Start Date Expiration Date Visits V isits Requested Authorized [id number] Canceled 10/06/2017 10/06/2018 1 Encounter Details Date Type Department Care Team Description 12/15/2017 Nurse Only Department of Physical Henry Alfaro M.B.B.S. [address] [place] [phone] Medicine and Rehabilitation in Elida Garcia R.N. [address] [place] [address] [phone] [place], [place] [address] [place] [address] [phone] Social History Tobacco Use Types Packs/Day [...] do you attend rastafari or Never 2021 bahai services? Do you belong to any clubs or Yes 12/12/2021 organizations such as rastafari groups, unions, fraCrowdMob or athletic groups, or school groups? How [...] Orthopedic Surgery Deon Herrera M.D. [address] [place], [place] [phone] (Wo rk) documented as of this encounter Visit Diagnoses Diagnosis Dysfunction Pelvic Floor Female documented in this encounter Additional Health Concerns Assessment Noted Time PHQ-9 Depression Total Score: 5 04/29/2016 10:10 AM CS T documented as of this encounter
--- OUTSIDE RECORDS SUMMARY | 2022-01-25 16:34 | XMS_ITS | Encounter Summary ---
:1955 Author Organization [facility] Address [address] [place] [address] Care Team Providers Name Role Phone Unavailable Primary Care Provider Unavailable Encounter Details Date Type Department Care Team Description 10/03/2017 Clinical Communication Department of Physical Ri nn, Linda Cid Medicine and [phone] Rehabilitation in (Work) [place], [place] [address] [place] [phone] Social History Tobacco Use Types Packs/Day [...] do you attend taoist or Never 2021 mosque services? Do you [...] Orthopedic Surgery Deon Herrera M.D. [address] [place], [place] [phone] (Wo rk) documented as of this encounter Visit Diagnoses Not on filedocumented in this encounter Additional Health Concerns Assessment Noted Time PHQ-9 Depression Total Score: 5 04/29/2016 10:10 AM CS T documented as of this encounter
--- OUTSIDE RECORDS SUMMARY | 2022-01-25 16:34 | XMS_ITS | Encounter Summary ---
:1955 Author Organization [facility] Address [address] [place] [address] Care Team Providers Name Role Phone Unavailable Primary Care Provider Unavailable Reason for Visit Appointment Request (Routine) - Canceled Specialty Diagnoses / Procedures Referred By Contact Refer red To Contact Henry Alfaro M. B.B.S. [address] [place] [phone] Referral ID Status Reason Start Date Expiration Date Visits V isits Requested Authorized [id number] Canceled 10/06/2017 10/06/2018 1 Encounter Details Date Type Department Care Team Description 12/11/2017 Nurse Only Department of Physical Henry Alfaro M.B.B.S. [address] [place] [phone] Medicine and Rehabilitation in Elida Garcia R.N. [address] [place] [address] [phone] [place], [place] [address] [place] [address] [phone] Social History Tobacco Use Types Packs/Day [...] do you attend christian or Never 2021 confucianist services? Do you belong to any clubs or Yes 12/12/2021 organizations such as christian groups, unions, fraCoupay or athletic groups, or school groups? How [...] of this encounter Progress Notes Elida Garcia, RCanydN. - 12/11/2017 3:00 PM CDT SUBJECTIVE REQUESTING [...] Office Visit Orthopedic Surgery Deon Herrera M.D. [address] [place] [phone] (Wo rk) documented as of this encounter Visit Diagnoses Diagnosis Dysfunction Pelvic Floor Female documented in this encounter Additional Health Concerns Assessment Noted Time PHQ-9 Depression Total Score: 5 04/29/2016 10:10 AM CS T documented as of this encounter
--- OUTSIDE RECORDS SUMMARY | 2022-01-25 16:34 | XMS_ITS | Encounter Summary ---
:1955 Author Organization [facility] Address [address] [place] [address] Care Team Providers Name Role Phone Unavailable Primary Care Provider Unavailable Reason for Visit Appointment Request (Routine) - Canceled Specialty Diagnoses / Procedures Referred By Contact Refer red To Contact Henry Alfaro M. B.B.S. [address] [place] [phone] Referral ID Status Reason Start Date Expiration Date Visits V isits Requested Authorized [id number] Canceled 10/06/2017 10/06/2018 1 Encounter Details Date Type Department Care Team Description 12/16/2017 Nurse Only Department of Physical Henry Alfaro M.B.B.S. [address] [place] [phone] Medicine and Rehabilitation in Elida Garcia R.N. [address] [place] [address] [phone] [place], [place] [address] [place] [address] [phone] Social History Tobacco Use Types Packs/Day [...] do you attend jewish or Never 2021 mormonism services? Do you belong to any clubs or Yes 12/12/2021 organizations such as jewish groups, unions, [employer] or athletic groups, or school groups? [...] Orthopedic Surgery Deon Herrera M.D. [address] [place], [place] [phone] (Wo rk) documented as of this encounter Visit Diagnoses Diagnosis Dysfunction Pelvic Floor Female documented in this encounter Additional Health Concerns Assessment Noted Time PHQ-9 Depression Total Score: 5 04/29/2016 10:10 AM CS T documented as of this encounter
--- OUTSIDE RECORDS SUMMARY | 2022-01-25 16:34 | XMS_ITS | Encounter Summary ---
:1955 Author Organization [facility] Address [address] [place] [address] Care Team Providers Name Role Phone Unavailable Primary Care Provider Unavailable Encounter Details Date Type Department Care Team Description 10/01/2017 Clinical Communication Department of Physical [facility], Medicine and Jones Mendoza M.D. Rehabilitation in [address] [place] [address] [place] [phone] [place] [phone] Social History Tobacco Use Types Packs/Day [...] do you attend jainism or Never 2021 yazdanism services? Do you [...] Orthopedic Surgery Deon Herrera M.D. [address] [place] [phone] (Wo rk) documented as of this encounter Visit Diagnoses Not on filedocumented in this encounter Additional Health Concerns Assessment Noted Time PHQ-9 Depression Total Score: 5 04/29/2016 10:10 AM CS T documented as of this encounter
--- OUTSIDE RECORDS SUMMARY | 2022-01-25 16:34 | XMS_ITS | Encounter Summary ---
:1955 Author Organization [facility] Address [address] [place] [address] Care Team Providers Name Role Phone Unavailable Primary Care Provider Unavailable Reason for Visit Reason Onset Date Comments Constipation 10/23/2017 Encounter Details Date Type Department Care Team Description 10/23/2017 Clinical Communication Department of Physical Rue, Catarina Cid, Constipation Medicine and R.N. Rehabilitation in [address] [place] [address] [place] [phone] [place] [phone] Social History Tobacco Use Types Packs/Day Years [...] do you attend moravian or Never 2021 orthodoxy services? Do you [...] Visit Orthopedic Surgery Deon Herrera M.D. [address] [place] [phone] (Wo rk) documented as of this encounter Visit Diagnoses Not on filedocumented in this encounter Additional Health Concerns Assessment Noted Time PHQ-9 Depression Total Score: 5 04/29/2016 10:10 AM CS T documented as of this encounter
--- OUTSIDE RECORDS SUMMARY | 2022-01-25 16:34 | XMS_ITS | Encounter Summary ---
:1955 Author Organization [facility] Address [address] [place] [address] Care Team Providers Name Role Phone Unavailable Primary Care Provider Unavailable Encounter Details Date Type Department Care Team Description 12/03/2017 Clinical Communication Department of Physical Richard, Ida Medicine and K Rehabilitation in [address] [place] [address] [place] [phone] [place] [phone] [phone] Social History Tobacco Use Types Packs/Day Years [...] do you attend religion or Never 2021 yarsanism services? Do you [...] Orthopedic Surgery Deon Herrera M.D. [address] [place], [place] [phone] (Wo rk) documented as of this encounter Visit Diagnoses Not on filedocumented in this encounter Additional Health Concerns Assessment Noted Time PHQ-9 Depression Total Score: 5 04/29/2016 10:10 AM CS T documented as of this encounter
--- OUTSIDE RECORDS SUMMARY | 2022-01-25 16:34 | XMS_ITS | Encounter Summary ---
:1955 Author Organization [facility] Address [address] [place] [address] Care Team Providers Name Role Phone Unavailable Primary Care Provider Unavailable Reason for Visit Appointment Request (Routine) - Canceled Specialty Diagnoses / Procedures Referred By Contact Refer red To Contact Henry Alfaro M. B.B.S. [address] [place] [phone] Referral ID Status Reason Start Date Expiration Date Visits V isits Requested Authorized [id number] Canceled 10/06/2017 10/06/2018 1 Encounter Details Date Type Department Care Team Description 12/12/2017 Nurse Only Department of Physical Henry Alfaro M.B.B.S. [address] [place] [phone] Medicine and Rehabilitation in Elida Garcia R.N. [address] [place] [address] [phone] [place], [place] [address] [place] [address] [phone] Social History Tobacco Use Types Packs/Day [...] do you attend mormon or Never 2021 presybeterian services? Do you belong to any clubs or Yes 12/12/2021 organizations such as mormon groups, unions, fraKnown or athletic groups, or school groups? How [...] medium to large bowel movement that was [place] type 3, after about 5 minutes which [...] Visit Orthopedic Surgery Deon Herrera M.D. [address] [place] [phone] (Wo ) documented as of this encounter Visit Diagnoses Diagnosis Dysfunction Pelvic Floor Female documented in this encounter Additional Health Concerns Assessment Noted Time PHQ-9 Depression Total Score: 5 04/29/2016 10:10 AM CS T documented as of this encounter
--- OUTSIDE RECORDS SUMMARY | 2022-01-25 16:34 | XMS_ITS | Encounter Summary ---
:1955 Author Organization [facility] Address [address] [place] [address] Care Team Providers Name Role Phone Unavailable Primary Care Provider Unavailable Encounter Details Date Type Department Care Team Description 11/28/2017 Clinical Communication Division of Henry Alfaro Gastroenterology in , MCandyBCandyB.SWest [place], [place] [address] [facility] [address] [place] [phone] Social History Tobacco Use Types Packs/Day Years [...] do you attend hindu or Never 2021 sabianist services? Do you [...] Ida Burger Sent: 11/24/2017 1:37 PM To: [facility] Subject: Return Please schedule a return with Dr. Alfaro prior to the last Friday of this patient's 2 week program. Thank you Telephone Encounter - Henry Alfaor M.B.B.S. - 11/28/2017 12:48 PM CDT ----- Message from Cecile Knight sent at 11/25/2017 7:18 AM CDT ----- Regarding: FW: Return Dr. Alfaro, can you add this pt on on 12/17 or 12/18? To follow up pmr ----- Message ----- From: Ida Burger Sent: 11/24/2017 1:37 PM To: [facility] Subject: Return Please schedule a return with Dr. Alfaro prior to the last Friday of this patient's 2 week program. Thank you documented in this encounter Plan of Treatment Upcoming Encounters Date Type Specialty Care Team Description 02/04/2022 Office Visit Orthopedic Surgery Deon Herrera M.D. [address] [place], [place] [phone] (Wo rk) documented as of this encounter Visit Diagnoses Not on filedocumented in this encounter Additional Health Concerns Assessment Noted Time PHQ-9 Depression Total Score: 5 04/29/2016 10:10 AM CS T documented as of this encounter
--- OUTSIDE RECORDS SUMMARY | 2022-01-25 16:34 | XMS_ITS | Encounter Summary ---
:1955 Author Organization [facility] Address [address] [place] [address] Care Team Providers Name Role Phone Unavailable Primary Care Provider Unavailable Reason for Visit Appointment Request (Routine) - Canceled Specialty Diagnoses / Procedures Referred By Contact Refer red To Contact Henry Alfaro M. B.B.S. [address] [place] [phone] Referral ID Status Reason Start Date Expiration Date Visits V isits Requested Authorized [id number] Canceled 10/06/2017 10/06/2018 1 Encounter Details Date Type Department Care Team Description 12/17/2017 Nurse Only Department of Physical Henry Alfaro M.B.B.S. [address] [place] [phone] Medicine and Rehabilitation in Elida Garcia R.N. [address] [place] [address] [phone] [place], [place] [address] [place] [address] [phone] Social History Tobacco Use Types Packs/Day [...] do you attend uatsdin or Never 2021 muslim services? Do you belong to any clubs or Yes 12/12/2021 organizations such as uatsdin groups, unions, fraelastic[employer]io or athletic groups, or school groups? How [...] Orthopedic Surgery Deon Herrera M.D. [address] [place], [place] [phone] (Wo rk) documented as of this encounter Visit Diagnoses Diagnosis Dysfunction Pelvic Floor Female documented in this encounter Additional Health Concerns Assessment Noted Time PHQ-9 Depression Total Score: 5 04/29/2016 10:10 AM CS T documented as of this encounter
--- OUTSIDE RECORDS SUMMARY | 2022-01-25 16:34 | XMS_ITS | Encounter Summary ---
:1955 Author Organization [facility] Address [address] [place] [address] Care Team Providers Name Role Phone Unavailable Primary Care Provider Unavailable Reason for Visit Appointment Request (Routine) - Canceled Specialty Diagnoses / Procedures Referred By Contact Refer red To Contact Henry Alfaro M. B.B.S. [address] [place] [phone] Referral ID Status Reason Start Date Expiration Date Visits V isits Requested Authorized [id number] Canceled 10/06/2017 10/06/2018 1 Encounter Details Date Type Department Care Team Description 12/08/2017 Nurse Only Department of Physical Henry Alfaro M.B.B.S. [address] [place] [phone] Medicine and Rehabilitation in Elida Garcia R.N. [address] [place] [address] [phone] [place], [place] [address] [place] [address] [phone] Social History Tobacco Use Types Packs/Day [...] do you attend holiness or Never 2021 episcopalian services? Do you belong to any clubs or Yes 12/12/2021 organizations such as holiness groups, unions, fraKlangoo or athletic groups, or school groups? How [...] Orthopedic Surgery Deon Herrera M.D. [address] [place] [phone] (Wo rk) documented as of this encounter Visit Diagnoses Diagnosis Dysfunction Pelvic Floor Female documented in this encounter Additional Health Concerns Assessment Noted Time PHQ-9 Depression Total Score: 5 04/29/2016 10:10 AM CS T documented as of this encounter
--- OUTSIDE RECORDS SUMMARY | 2022-01-25 16:35 | XMS_ITS | Encounter Summary ---
:1955 Author Organization [facility] Address [address] [place] [address] Care Team Providers Name Role Phone Unavailable Primary Care Provider Unavailable Reason for Visit Reason Comments Follow-up Appointment Request (Routine) - Closed Specialty Diagnoses / Referred By Contact Referred To Contact Procedures Physical Medicine and Vivek Man, Rehabilitation M.D. [address] [facility], [address] [place] [address] Referral ID Status Reason Start Date Expiration Date Visits Requ ested Visits Authorized [id number] Closed 05/28/2017 11/24/2017 1 1 Encounter Details Date Type Department Care Team Description 06/19/2017 Office Visit Department of Physical Vivek Man, Tendonitis Achilles Right (Primary Dx); Medicine and M.D. Pain Neck; Rehabilitation in [address] [facility], Spond ylosis Cervical Without Myelopathy [place], [place] [address] [place] [address] [phone] Social History Tobacco Use Types Packs/Day Years [...] do you attend shinto or Never 2021 scientologist services? Do you [...] Body Mass Index 34.62 04/15/2017 3:09 PM BOOKS BINDER documented in this encounter Progress Notes Vivek [...] discuss that I will be transitioning from [place] to the practice in [place]. She understands this and I will see her in [place] after physical therapy. She also knows to contact prior to that time if she notes any worsening or worrisome symptoms which we went over in detail today. Ms. Ha voiced agreement and understanding with this plan. Total time 30 minutes, counseling, coordination of care time greater than 15 minutes. Job ID: [id number] documented in this encounter Plan of Treatment Upcoming Encounters Date Type Specialty Care Team Description 02/04/2022 Office Visit Orthopedic Surgery Deon Herrera M.D. [address] [place] [phone] (Wo rk) documented as of this encounter Visit Diagnoses Diagnosis Tendonitis Achilles Right - Primary Pain Neck Spondylosis Cervical Without Myelopathy documented in this encounter Additional Health Concerns Assessment Noted Time PHQ-9 Depression Total Score: 5 04/29/2016 10:10 AM CS T documented as of this encounter
--- OUTSIDE RECORDS SUMMARY | 2022-01-25 16:35 | XMS_ITS | Encounter Summary ---
:1955 Author Organization [facility] Address [address] [place] [address] Care Team Providers Name Role Phone Unavailable Primary Care Provider Unavailable Reason for Visit Reason Comments Med Refill Encounter Details Date Type Department Care Team Description 03/28/2017 Refill Department of Physical Medicine Vivek Man M.D. Med Refill and Rehabilitation in [address] [place], [place] [address] [place], [place] [address] [place] [address] [phone] Social History Tobacco Use Types Packs/Day Years [...] do you attend jew or Never 2021 presybeterian services? Do you [...] Orthopedic Surgery Deon Herrera M.D. [address] [place] [phone] (Wo rk) documented as of this encounter Visit Diagnoses Not on filedocumented in this encounter Additional Health Concerns Assessment Noted Time PHQ-9 Depression Total Score: 5 04/29/2016 10:10 AM CS T documented as of this encounter
--- OUTSIDE RECORDS SUMMARY | 2022-01-25 16:35 | XMS_ITS | Encounter Summary ---
:1955 Author Organization [facility] Address [address] [place] [address] Care Team Providers Name Role Phone Unavailable Primary Care Provider Unavailable Encounter Details Date Type Department Care Team Description 09/23/2017 Hospital Encounter Division of Henry Alfaro Gastroenterology in , M.B.B.S. [place], [place] [address] [facility] [address] [place] [phone] Social History Tobacco Use Types Packs/Day Years [...] do you attend quaker or Never 2021 scientologist services? Do you [...] Orthopedic Surgery Deon Herrera M.D. [address] [place] [phone] (Wo rk) Scheduled Orders Name Type Priority [...]
--- OUTSIDE RECORDS SUMMARY | 2022-01-25 16:35 | XMS_ITS | Encounter Summary ---
:1955 Author Organization [facility] Address [address] [place] [address] Care Team Providers Name Role Phone Unavailable Primary Care Provider Unavailable Reason for Visit Reason Comments Constipation Encounter Details Date Type Department Care Team Description 09/23/2017 Clinical Support [facility] [address] [place] [phone] [place], [place] Maria Fernanda Torres R.N. [address] [place] [phone] [address] [place] [phone] Social History Tobacco Use Types Packs/Day [...] do you attend mosque or Never 2021 baptism services? Do you [...] rectal enema administration prior to: rectal manometry historical interpreter needed: No; Romansh is patient's preferred language. Enema administered by: RN Type of enema(s) administered: Fleet enema(s) administered 1 Time enema(s) administered: 1310 documented in this encounter Plan of Treatment Upcoming Encounters Date Type Specialty Care Team Description 02/04/2022 Office Visit Orthopedic Surgery Deon Herrera M.D. [address] [place], [place] [phone] (Wo rk) documented as [...]
--- OUTSIDE RECORDS SUMMARY | 2022-01-25 16:35 | XMS_ITS | Encounter Summary ---
:1955 Author Organization [facility] Address [address] [place] [address] Care Team Providers Name Role Phone Unavailable Primary Care Provider Unavailable Reason for Visit Reason Onset Date Comments Referral 01/30/2017 Encounter Details Date Type Department Care Team Description 01/30/2017 Clinical Communication Department of Vivek Man Referral Occupational Medicine MJay in [address] [place] [phone] Social History Tobacco Use Types Packs/Day Years [...] do you attend confucianism or Never 2021 quaker services? Do you [...] Guthrie - 02/12/2017 11:41 AM CST Thanks. ER SPLICER Telephone Encounter - Wilda Lerner L.P.NCandy - 01/30/2017 9:56 AM CST Waiting on prior authorization. ER SPLICER Telephone Encounter - Inez Guthrie - 01/30/2017 9:23 AM CST The patient called and said that she was supposed to have a referral for a MRI in [place] and they do not have anything. Can you please check on this she would like this done SHINE ER SPLICER documented in this encounter Plan of Treatment Upcoming Encounters Date Type Specialty Care Team Description 02/04/2022 Office Visit Orthopedic Surgery Deon Herrera M.D. [address] [place], [place] [phone] (Wo rk) documented as of this encounter Visit Diagnoses Not on filedocumented in this encounter Additional Health Concerns Assessment Noted Time PHQ-9 Depression Total Score: 5 04/29/2016 10:10 AM CS T documented as of this encounter
--- OUTSIDE RECORDS SUMMARY | 2022-01-25 16:35 | XMS_ITS | Encounter Summary ---
:1955 Author Organization [facility] Address [address] [place] [address] Care Team Providers Name Role Phone Unavailable Primary Care Provider Unavailable Reason for Visit Reason Comments Sleeping Problem CPAP download - sleeping bet ter. Is more tired during the day. MRI results Appointment Request (Routine) - Closed Specialty Diagnoses / Procedures Referred By Contact Refer red To Contact Neurology Referral ID Status Reason Start Date Expiration Date Visits Requ ested Visits Authorized [id number] Closed 01/20/2017 07/19/2017 1 1 Encounter Details Date Type Department Care Team Description 01/30/2017 Office Visit Department of Meghna Valdez, Apnea Slee p Obstructive (Primary Dx); Neurology in Jose Roberto.Joseph., M.P.H. Insomnia; [place], [place] [address] Hypersomnia; [address] [place], [place] Diabetes Mellitus Type 2 Wit h Diabetic Neuropathy (HCC); [place] [address] Abnormal Magnetic Resonance Imaging [facility] [place] [phone] Social History Tobacco Use Types Packs/Day Years [...] do you attend yazidism or Never 2021 taoism services? Do you [...] Comments Blood Pressure 124/70 01/30/2017 12:54 PM HOUSING LIAISON Pulse 68 01/30/2017 12:54 PM HOUSING LIAISON Temperature - - Respiratory Rate - - Oxygen Saturation - - Inhaled Oxygen Concentration - - Weight 118 kg (259 lb 7.7 oz) 01/30/2017 12:54 PM HOUSING LIAISON Height - - Body Mass Index 38 [...] happy with all of these numbers. Her [place] sleepiness Score today is 11 and I [...] reveals normal bulk tone and strength throughout [place] rapid movements normal bilaterally. Impression: Obstructive sleep apnea, very well treated on her present settings and mask no changes. Insomnia and this appears to be resolved with the doxepin 3 mg HS. She might be having a little bit of hangover home from that sort going to cut the dose in half because her [place] sleepiness score is11 today. But in terms [...] 40 minutes 25 and counseling care coordination. ING LIAISON documented in this encounter Plan of Treatment Upcoming Encounters Date Type Specialty Care Team Description 02/04/2022 Office Visit Orthopedic Surgery Deon Herrera M.D. [address] [place], [place] [phone] (Wo rk) documented as [...]
--- OUTSIDE RECORDS SUMMARY | 2022-01-25 16:35 | XMS_ITS | Encounter Summary ---
:[address] [facility] Address [address] [place] [address] Care Team Providers Name Role Phone Unavailable Primary Care Provider Unavailable Reason for Visit Reason Comments Follow-up hip pain Encounter Details Date Type Department Care Team Description 01/28/2017 Office Visit Department of Physical Vivek Man, Pain Low Back (Primary Dx); Medicine and M.D. Spondylosis Lumbar Without Myelopathy; Rehabilitation in 600 [facility], Pain Hip Right; [place], [place] [address] Bursitis Trochanteric Right [address] [place] [phone] Social History Tobacco Use Types Packs/Day [...] do you attend mormonism or Never 2021 anabaptist services? Do you [...] Comments Blood Pressure 124/82 01/28/2017 2:54 PM MOBILE HEAVY EQUIPMENT MECHANIC Pulse - - Temperature - - Respiratory Rate - - Oxygen Saturation - - Inhaled Oxygen Concentration - - Weight 117 kg (257 lb 9.7 oz) 01/28/2017 2:54 PM MOBILE HEAVY EQUIPMENT MECHANIC Height - - Body Mass Index 37.72 [...] time greater than 15 minutes. Job ID: [id number] LE HEAVY EQUIPMENT MECHANIC documented in this encounter Plan of Treatment Upcoming Encounters Date Type Specialty Care Team Description 02/04/2022 Office Visit Orthopedic Surgery Deon Herrera M.D. [address] [place], [place] [phone] (Wo rk) documented as of this encounter Visit Diagnoses Diagnosis Pain Low Back Unspecified - Primary Spondylosis Lumbar Without Myelopathy Pain Hip Right Bursitis Trochanteric Right documented in this encounter Additional Health Concerns Assessment Noted Time PHQ-9 Depression Total Score: 5 04/29/2016 10:10 AM CS T documented as of this encounter
--- OUTSIDE RECORDS SUMMARY | 2022-01-25 16:35 | XMS_ITS | Encounter Summary ---
:1955 Author Organization [facility] Address [address] [place] [address] Care Team Providers Name Role Phone Unavailable Primary Care Provider Unavailable Reason for Visit Reason Comments Med Refill Encounter Details Date Type Department Care Team Description 05/28/2017 Refill Department of Physical Medicine Vivek Man M.D. Med Refill and Rehabilitation in 600 [place], [place] [address] [address] [place], [place] [id number] [place] [phone] Social History Tobacco Use Types Packs/Day Years [...] do you attend alevism or Never 2021 baptist services? Do you [...] Orthopedic Surgery Deon Herrera M.D. [address] [place] [phone] (Wo rk) documented as of this encounter Visit Diagnoses Not on filedocumented in this encounter Additional Health Concerns Assessment Noted Time PHQ-9 Depression Total Score: 5 04/29/2016 10:10 AM CS T documented as of this encounter
--- OUTSIDE RECORDS SUMMARY | 2022-01-25 16:35 | XMS_ITS | Encounter Summary ---
:1955 Author Organization [facility] Address [address] [place] [address] Care Team Providers Name Role Phone Unavailable Primary Care Provider Unavailable Reason for Visit Reason Comments Constipation being seen in [facility] Outpatient (Routine) - Closed Specialty Diagnoses / Referred By Referred To Cont act Procedures Contact Gastroenterology and Diagnoses Constipation Rectocele Other Specified Disorders [facility] [place] [address] [place] [address] Referral ID Status Reason Start Date Expiration Date Visits Requ ested Visits Authorized [id number] Closed 09/02/2017 09/02/2018 1 1 Encounter Details Date Type Department Care Team Description 09/23/2017 Comprehensive Visit Division of Dago Emery M.D. [address] [place] [address] Constipation (Primary Dx); Gastroenterology in DominicHenry bermudez M.B.BCandySCandy [address] [place] [phone] Rectocele; [place], [place] Other Specified Disorders Of Muscle; [address] [facility] Prolapse [place] [phone] Social History Tobacco Use Types Packs/Day Years [...] do you attend sabianism or Never 2021 spiritism services? Do you [...] but now reports her stools are usually Franklin type 6. She has tried other medications; [...] breathing technique which was suggested by her asbestos removal worker. In addition to her difficulty with evacuation, she also complains of urinary frequency, which has been more recent. Her last colonoscopy was within the last 10 years, and she apparently did not have polyps on that colonoscopy. She does not have any family history of colon cancer and does not report any blood in her stool. She was recently seen by a control system computer scientist and was referred here for possible pelvic [...] sober for 32 years. She has embraced Congregation and feels this has helped significantly in [...] , Disp: , Rfl: ??? MICROLET LANCET [facility], 2 (two) times a day. for testing, [...] is a past smoker and has a 54-balm-hxku history of smoking. She used to smoke [...] Surgery Deon Herrera M.D. [address] [place], [place] [phone] (Wo rk) Scheduled Orders Name Type Priority Associated Diagnoses Order S chedule Anorectal Manometry GI Routine Constipation Expected : 09/23/2017 (Approximate), Expires: 09/23/2020 Enema prep Procedures Routine Constipation Expected: 09/23 (Approximate), Expires: 09/23/2020 documented as of this encounter Results Calcium, Total (09/23/2017 12:08 PM CDT) athologist Signature Calcium, 9.8 8.8 - 10.2 09/23/2017 [facility] Total, S mg/dL 1:14 PM CDT [facility] Specimen Anatomical Collection Method Collection Time Receive d Time (Source) Location / / Volume Laterality Blood (Blood, 09/23/2017 12:08 09/23/2017 Venous) PM CDT 12:33 PM CDT Henry MuñozB.S. LAB BLOOD ADD-ON Performing Organization Address City/[facility] Phon e Number [facility] LABORATORIES - [address] Thyroid Function [place] (09/23/2017 12:08 PM CDT) athologist Signature TSH, Sensitive 1.4 0.3 - 4.2 09/23/2017 [facility] mIU/L 1:14 PM CDT [facility] Specimen Anatomical Collection Method Collection Time Receive d Time (Source) Location / / Volume Laterality Blood (Blood, 09/23/2017 12:08 09/23/2017 Venous) PM CDT 12:33 PM CDT Henry PatiñoBCandyB.S. LAB BLOOD ADD-ON Performing Organization Address City/[facility] Code Phon e Number [facility] LABORATORIES - [address] documented in this encounter Visit Diagnoses Diagnosis Constipation - Primary Rectocele Other Specified Disorders Of Muscle Prolapse Vaginal documented in this encounter Additional Health Concerns Assessment Noted Time PHQ-9 Depression Total Score: 5 04/29/2016 10:10 AM CS T documented as of this encounter
--- OUTSIDE RECORDS SUMMARY | 2022-01-25 16:35 | XMS_ITS | Encounter Summary ---
:1955 Author Organization [facility] Address [address] [place] [address] Care Team Providers Name Role Phone Unavailable Primary Care Provider Unavailable Encounter Details Date Type Department Care Team Description 02/20/2017 Clinical Communication Department of Sleep Meghna Valdez, Medicine in Thee Farr M.D., [facility] [place] [address] [place] [address] [place] [phone] Social History Tobacco Use Types Packs/Day Years [...] do you attend rastafari or Never 2021 adventist services? Do you [...] Valdez M.D., M.P.H. - 02/20/2017 11:32 AM RETAIL SPECIALIST ----- Message from Iona Coker sent at 02/20/2017 10:17 AM RETAIL SPECIALIST ----- Regarding: Referral Closed- Burton Adames Thank you for your referral to [facility]. We regret to inform you that our [...] or concerns, please call us at or [phone]. You may also reply to this message if you have questions. Sincerely, [facility] Online Services for Referring Physicians Appointment Office [place] SPECIALIST documented in this encounter Plan of Treatment Upcoming Encounters Date Type Specialty Care Team Description 02/04/2022 Office Visit Orthopedic Surgery Deon Herrera M.D. [address] [place], [place] [phone] (Wo rk) documented as of this encounter Visit Diagnoses Not on filedocumented in this encounter Additional Health Concerns Assessment Noted Time PHQ-9 Depression Total Score: 5 04/29/2016 10:10 AM CS T documented as of this encounter
--- OUTSIDE RECORDS SUMMARY | 2022-01-25 16:35 | XMS_ITS | Encounter Summary ---
:1955 Author Organization [facility] Address [address] [place] [address] Care Team Providers Name Role Phone Unavailable Primary Care Provider Unavailable Reason for Visit Reason Comments Communication Encounter Details Date Type Department Care Team Description 05/09/2017 Clinical Communication Department of [facility] [place] Man, Communication Medicine in [place], [place] [address], [address] [place] [address] [address] [place] [phone] Social History Tobacco Use Types Packs/Day Years [...] do you attend baptist or Never 2021 scientologist services? Do you [...] her back with a day and time. R SETTER Telephone Encounter - Jossie Morris - 05/09/2017 4:55 PM CST Is having problems with several areas that Dr. Man has been seeing her for, would like to be seen before he leaves R SETTER documented in this encounter Plan of Treatment Upcoming Encounters Date Type Specialty Care Team Description 02/04/2022 Office Visit Orthopedic Surgery Deon Herrera M.D. [address] [place], [place] [phone] (Wo rk) documented as of this encounter Visit Diagnoses Not on filedocumented in this encounter Additional Health Concerns Assessment Noted Time PHQ-9 Depression Total Score: 5 04/29/2016 10:10 AM CS T documented as of this encounter
--- OUTSIDE RECORDS SUMMARY | 2022-01-25 16:35 | XMS_ITS | Encounter Summary ---
:1955 Author Organization [facility] Address [address] [place] [address] Care Team Providers Name Role Phone Unavailable Primary Care Provider Unavailable Encounter Details Date Type Department Care Team Description 02/19/2017 Orders Only Department of Neurology in Meghna Valdez M.D.[place], [place] M.P.H. 300 [facility] [address] [place] [address] [place], [place] [phone] (Wo rk) Social History Tobacco Use [...] do you attend amish or Never 2021 yazidi services? Do you [...] Orthopedic Surgery Deon Herrera M.D. [address] [place], [place] [phone] (Wo rk) documented as of this encounter Visit Diagnoses Not on filedocumented in this encounter Additional Health Concerns Assessment Noted Time PHQ-9 Depression Total Score: 5 04/29/2016 10:10 AM CS T documented as of this encounter
--- OUTSIDE RECORDS SUMMARY | 2022-01-25 16:35 | XMS_ITS | Encounter Summary ---
:1955 Author Organization [facility] Address [address] [place] [address] Care Team Providers Name Role Phone Unavailable Primary Care Provider Unavailable Encounter Details Date Type Department Care Team Description 01/30/2017 Orders Only Department of Neurology Meghna Valdez, Apnea Sleep Obstructive (Primary Dx); in [facility] karthik Pruett, M.P.H. Hypersomnia; [address] Insomnia; [place], [place] Diabetes Melli [facility] Type 2 With Diabetic Neuropathy (HCC); [phone] Abnormal Magnetic Resonance Imaging Brai n [phone] Social History Tobacco Use Types Packs/Day Years [...] do you attend holiness or Never 2021 holiness services? Do you [...] Visit Orthopedic Surgery Deon Herrera M.D. [address] [place] [phone] (Wo rk) documented as of [...]
--- OUTSIDE RECORDS SUMMARY | 2022-01-25 16:35 | XMS_ITS | Encounter Summary ---
:1955 Author Organization [facility] Address [address] [place] [address] Care Team Providers Name Role Phone Unavailable Primary Care Provider Unavailable Encounter Details Date Type Department Care Team Description 09/23/2017 Hospital Encounter Department of Laboratory Juan Alfaro, Constipation Medicine and Pathology, [facility] [address] [place] [address] [place] [address] [place] [address] [phone] Social History Tobacco Use Types Packs/Day Years [...] do you attend catholic or Never 2021 mandaeism services? Do you [...] Orthopedic Surgery Deon Herrera M.D. [address] [place] [address] [place] [phone] (Wo rk) documented as [...] Signature Calcium, 9.8 8.8 - 10.2 09/23/2017 [facility] Total, S mg/dL 1:14 PM CDT [facility] Specimen Anatomical Collection Method Collection Time Receive d Time (Source) Location / / Volume Laterality Blood (Blood, 09/23/2017 12:08 09/23/2017 Venous) PM CDT 12:33 PM CDT Henry MuñozB.S. LAB BLOOD ADD-ON Performing Organization Address City/[facility]/ZIP Code Phon e Number [facility] - [address] Thyroid Function [place] (09/23/2017 12:08 PM CDT) athologist Signature TSH, Sensitive 1.4 0.3 - 4.2 09/23/2017 [facility] mIU/L 1:14 PM CDT [facility] Specimen Anatomical Collection Method Collection Time Receive d Time (Source) Location / / Volume Laterality Blood (Blood, 09/23/2017 12:08 09/23/2017 Venous) PM CDT 12:33 PM CDT Henry MuñozB.S. LAB BLOOD ADD-ON Performing Organization Address City/[facility]/ZIP Code Phon e Number [facility] - [address] documented in this encounter Visit Diagnoses Diagnosis Constipation documented in this encounter Additional Health Concerns Assessment Noted Time PHQ-9 Depression Total Score: 5 04/29/2016 10:10 AM CS T documented as of this encounter
--- OUTSIDE RECORDS SUMMARY | 2022-01-25 16:35 | XMS_ITS | Encounter Summary ---
:1955 Author Organization [facility] Address [address] [place] [address] Care Team Providers Name Role Phone Unavailable Primary Care Provider Unavailable Reason for Referral Medication Prior Authorization (Routine) - Closed Specialty Diagnoses / Procedures Referred By Contact Refer red To Contact Vivek Man M. D. [address] [employer], [place] [address] [place], [place] [address] Referral ID Status Reason Start Date Expiration Date Visits Requ ested Visits Authorized [id number] Closed Encounter Details Date Type Department Care Team Description 07/29/2017 Comprehensive Visit Department of Vivek Man nitis Achilles Right (Primary Dx); Sports Medicine lee ann Cid M.D. Pain Low Back; [place] [address] [address] Primary Osteoar thritis Lumbar Spine [facility], [address] [place] [address] [phone] Social History Tobacco Use Types Packs/Day Years [...] do you attend buddhist or Never 2021 tenriism services? Do you [...] current program in physical therapy working at [employer]. She will continue her aerobic exercise [...] time, greater than 15 minutes. Job ID: [id number] documented in this encounter Plan of Treatment Upcoming Encounters Date Type Specialty Care Team Description 02/04/2022 Office Visit Orthopedic Surgery Deon Herrera M.D. [address] [place] [phone] (Wo rk) documented as of this encounter Visit Diagnoses Diagnosis Tendonitis Achilles Right - Primary Pain Low Back Unspecified Primary Osteoarthritis Lumbar Spine documented in this encounter Additional Health Concerns Assessment Noted Time PHQ-9 Depression Total Score: 5 04/29/2016 10:10 AM CS T documented as of this encounter
--- OUTSIDE RECORDS SUMMARY | 2022-01-25 16:35 | XMS_ITS | Encounter Summary ---
:1955 Author Organization [facility] Address [address] [place] [address] Care Team Providers Name Role Phone Unavailable Primary Care Provider Unavailable Reason for Visit Reason Comments Communication medication Encounter Details Date Type Department Care Team Description 04/03/2017 Clinical Communication Department of Meghna Valdez Family MedicineAdriana M.D., (medication ) [facility], M.P.H. [address] [address] [phone] Social History Tobacco Use Types Packs/Day Years [...] do you attend jain or Never 2021 christian services? Do you [...] anything else she can take? Call her. ER CLIPPER documented in this encounter Plan of Treatment Upcoming Encounters Date Type Specialty Care Team Description 02/04/2022 Office Visit Orthopedic Surgery Deon Herrera M.D. [address] [place] [phone] (Wo rk) documented as of this encounter Visit Diagnoses Not on filedocumented in this encounter Additional Health Concerns Assessment Noted Time PHQ-9 Depression Total Score: 5 04/29/2016 10:10 AM ANATOLIY T documented as of this encounter
--- OUTSIDE RECORDS SUMMARY | 2022-01-25 16:35 | XMS_ITS | Encounter Summary ---
:1955 Author Organization [facility] Address [address] [place] [address] Care Team Providers Name Role Phone Unavailable Primary Care Provider Unavailable Reason for Visit Reason Comments Knee Pain right Appointment Request (Routine) - Closed Specialty Diagnoses / Referred By Contact Referred To Contact Procedures Physical Medicine and Vivek Man, Rehabilitation [place] [address] [place] [address] [address] [place] [address] Referral ID Status Reason Start Date Expiration Date Visits Requ ested Visits Authorized [id number] Closed 01/28/2017 07/27/2017 1 1 Encounter Details Date Type Department Care Team Description 04/28/2017 Office Visit Department of Physical Vivek Man, Pain Knee Right Medicine and [place] (Primary Dx) Rehabilitation in [address] [place] [address] [address] [place] [address] [facility] [phone] Social History Tobacco Use Types Packs/Day Years [...] do you attend episcopalian or Never 2021 sabianist services? Do you [...] Comments Blood Pressure 122/80 04/28/2017 2:36 PM RESTORATIVE CARE TECHNICIAN Pulse - - Temperature - - Respiratory Rate - - Oxygen Saturation - - Inhaled Oxygen Concentration - - Weight 112 kg (246 lb 9.4 oz) 04/28/2017 2:35 PM RESTORATIVE CARE TECHNICIAN Height - - Body Mass Index 35.7 04/15/2017 3:09 PM RESTORATIVE CARE TECHNICIAN documented in this encounter Progress Notes Vivek [...] time greater than 15 minutes. Job ID: [id number] ORATIVE CARE TECHNICIAN documented in this encounter Plan of Treatment Upcoming Encounters Date Type Specialty Care Team Description 02/04/2022 Office Visit Orthopedic Surgery Deon Herrera M.D. [address] [place], [place] [phone] (Wo rk) documented as of this encounter Results DX Knee Right 3 Views (04/28/2017 4:15 PM RESTORATIVE CARE TECHNICIAN) Anatomical Region Laterality Modality Lower Extremity, Knee Right Computed Radiograp hy Specimen (Source) Anatomical Collection Method Collection Time Re ceived Time Location / / Volume Laterality 04/29/2017 8:32 AM RESTORATIVE CARE TECHNICIAN Impressions 04/29/2017 8:33 AM RESTORATIVE CARE TECHNICIAN IMPRESSION: No appreciable acute osseous abnormality of the bilateral knees. Postop changes bilateral total knee arth roplasties. Narrative 04/29/2017 8:33 AM RESTORATIVE CARE TECHNICIAN EXAM: DX KNEE RIGHT 3 VIEWS [...]
--- OUTSIDE RECORDS SUMMARY | 2022-01-25 16:35 | XMS_ITS | Encounter Summary ---
:1955 Author Organization [facility] Address [address] [place] [address] Care Team Providers Name Role Phone Unavailable Primary Care Provider Unavailable Reason for Visit Reason Comments Follow-up Encounter Details Date Type Department Care Team Description 07/21/2017 Office Visit Division of Haroon Engel Diabetes Mellambar us Type 2 (HCC) (Primary Dx); Endocrinology in [place] Guzman Diabetes Mellitus Type 2 With Diabetic N europathy (HCC) [place], [place] [address] [facility] [address] [place] [address] [phone] Social History Tobacco Use Types Packs/Day Years [...] do you attend confucianist or Never 2021 yazdanism services? Do you [...] Visit Orthopedic Surgery Deon Herrera M.D. [address] [place] [phone] (Wo rk) documented as of this encounter Visit Diagnoses Diagnosis Diabetes Mellitus Type 2 (HCC) - Primary Diabetes Mellitus Type 2 With Diabetic N europathy (HCC) documented in this encounter Additional Health Concerns Assessment Noted Time PHQ-9 Depression Total Score: 5 04/29/2016 10:10 AM CS T documented as of this encounter
--- OUTSIDE RECORDS SUMMARY | 2022-01-25 16:35 | XMS_ITS | Encounter Summary ---
:1955 Author Organization [facility] Address [address] [place] [address] Care Team Providers Name Role Phone Unavailable Primary Care Provider Unavailable Encounter Details Date Type Department Care Team Description 09/24/2017 Clinical Communication Division of Haroon Engel Endocrinology in [place], [place] [address] [facility] [address] [place] [phone] Social History Tobacco Use Types Packs/Day Years [...] do you attend pentecostal or Never 2021 jain services? Do you [...] Caller/Dept - Mrs. Adames Phone # - [phone] B: Patient was last seen on : [...] Orthopedic Surgery Deon Herrera M.D. [address] [place], [place] [phone] (Wo rk) documented as of this encounter Visit Diagnoses Diagnosis Diabetes Mellitus Type 2 (HCC) - Primary documented in this encounter Additional Health Concerns Assessment Noted Time PHQ-9 Depression Total Score: 5 04/29/2016 10:10 AM CS T documented as of this encounter
--- OUTSIDE RECORDS SUMMARY | 2022-01-25 16:35 | XMS_ITS | Encounter Summary ---
:1955 Author Organization [facility] Address [address] [place] [address] Care Team Providers Name Role Phone Unavailable Primary Care Provider Unavailable Encounter Details Date Type Department Care Team Description 09/23/2017 Hospital Encounter Department of Radiology, Juan Alfaro, [facility], [place] [address] [facility] [address] [place] [address] [phone] Social History Tobacco Use Types Packs/Day Years [...] do you attend adventism or Never 2021 yazidism services? Do you [...] Visit Orthopedic Surgery Deon Herrera M.D. [address] [place] [phone] (Wo rk) documented as of this encounter [...]
--- OUTSIDE RECORDS SUMMARY | 2022-01-25 16:35 | XMS_ITS | Encounter Summary ---
:1955 Author Organization [facility] Address [address] [place] [address] Care Team Providers Name Role Phone Unavailable Primary Care Provider Unavailable Encounter Details Date Type Department Care Team Description 09/24/2017 Office Visit Division of Henry Alfaro Gastroenterology in C, M.B.B.S. Floor Female [place], [place] [address] [place] [address] (Primary Dx) [address] [place] [address] [phone] Social History Tobacco Use Types Packs/Day Years [...] do you attend restorationist or Never 2021 taoist services? Do you [...] Office Visit Orthopedic Surgery Deon Herrera M.D. [address] [place] [phone] (Wo rk) documented as of this encounter Visit Diagnoses Diagnosis Dysfunction Pelvic Floor Female - Primar y documented in this encounter Additional Health Concerns Assessment Noted Time PHQ-9 Depression Total Score: 5 04/29/2016 10:10 AM CS T documented as of this encounter
--- OUTSIDE RECORDS SUMMARY | 2022-01-25 16:35 | XMS_ITS | Encounter Summary ---
:1955 Author Organization [facility] Address [address] [place] [address] Care Team Providers Name Role Phone Unavailable Primary Care Provider Unavailable Encounter Details Date Type Department Care Team Description 04/28/2017 Hospital Encounter Department of Vivek Man Pai n Knee Right Radiology in [place], [place] [address], [address] [place] [address] [phone] Social History Tobacco Use Types Packs/Day Years [...] do you attend yazidism or Never 2021 moravian services? Do you [...] Surgery Deon Herrera M.D. [address] [place], [place] [phone] (Wo rk) documented as of this encounter Procedures Procedure Name Priority Date/Time Associated Comments Diagnosis DX KNEE RIGHT 3 RAD - Routine 04/28/2017 4:15 Pain Knee Right Resul ts for this VIEWS (most inpatients PM BARBER procedure a re in and all the results outpatients) section. documented in this encounter Results DX Knee Right 3 Views (04/28/2017 4:15 PM BARBER) Anatomical Region Laterality Modality Lower Extremity, Knee Right Computed Radiograp hy Specimen (Source) Anatomical Collection Method Collection Time Re ceived Time Location / / Volume Laterality 04/29/2017 8:32 AM BARBER Impressions 04/29/2017 8:33 AM BARBER IMPRESSION: No appreciable acute osseous abnormality of the bilateral knees. Postop changes bilateral total knee arth roplasties. Narrative 04/29/2017 8:33 AM BARBER EXAM: DX KNEE RIGHT 3 VIEWS COMPARISON: [...]
--- OUTSIDE RECORDS SUMMARY | 2022-01-25 16:35 | XMS_ITS | Encounter Summary ---
:1955 Author Organization [facility] Address [address] [place] [address] Care Team Providers Name Role Phone Unavailable Primary Care Provider Unavailable Reason for Visit Reason Comments Med Refill Encounter Details Date Type Department Care Team Description 02/18/2017 Refill Department of Neurology in Meghna Valdez M.D., Med Refill [place], [place] M.P.H. [address] [place] [address] [address] [place] [address] [place] [phone] (Wo rk) Social History Tobacco Use Types [...] do you attend mu-ism or Never 2021 yarsanism services? Do you [...] Orthopedic Surgery Deon Herrera M.D. [address] [place] [phone] (Wo rk) documented as of this encounter Visit Diagnoses Not on filedocumented in this encounter Additional Health Concerns Assessment Noted Time PHQ-9 Depression Total Score: 5 04/29/2016 10:10 AM CS T documented as of this encounter
--- OUTSIDE RECORDS SUMMARY | 2022-01-25 16:35 | XMS_ITS | Encounter Summary ---
:1955 Author Organization [facility] Address [address] [place] [address] Care Team Providers Name Role Phone Unavailable Primary Care Provider Unavailable Reason for Referral Behavioral Health (Routine) - Closed Specialty Diagnoses / Procedures Referred By Contact Refer red To Contact Psychiatry / Psychiatry Diagnoses Abnormal Magnetic Resonance Imaging Brain Meghna Valdez, [facility] [place], M.P.H. [address] [place] [phone] Referral ID Status Reason Start Date Expiration Date Visits Requ ested Visits Authorized [id number] Closed 02/20/2017 08/19/2017 1 1 RVISOR CHLORINE LIQUEFACTION Encounter Details Date Type Department Care Team Description 02/20/2017 Orders Only Department of Sleep Meghna Valdez, [facility] Magnetic Medicine in [place] M.D., M. P.H. Resonance Imaging Brain [place] [address] [place] [address] (Primary Dx) [address] [place], [place] [phone] Social History Tobacco Use Types Packs/Day Years [...] do you attend episcopalian or Never 2021 congregational services? Do you belong to any clubs or Yes 12/12/2021 organizations such as episcopalian groups, unions, [employer]ient [employer] or athletic groups, or school groups? How [...] Orthopedic Surgery Deon Herrera M.D. [address] [place], [place] [phone] (Wo rk) documented as of this encounter Visit Diagnoses Diagnosis Abnormal Magnetic Resonance Imaging Brai n - Primary documented in this encounter Additional Health Concerns Assessment Noted Time PHQ-9 Depression Total Score: 5 04/29/2016 10:10 AM CS T documented as of this encounter
--- OUTSIDE RECORDS SUMMARY | 2022-01-25 16:35 | XMS_ITS | Encounter Summary ---
:1955 Author Organization [facility] Address [address] [place] [address] Care Team Providers Name Role Phone Unavailable Primary Care Provider Unavailable Reason for Referral Outpatient (Routine) - Closed Specialty Diagnoses / Referred By Referred To Cont act Procedures Contact Gastroenterology and Diagnoses Constipation Rectocele Other Specified Disorders Of Muscle [facility] [address] [place] [address] Referral ID Status Reason Start Date Expiration Date Visits Requ ested Visits Authorized [id number] Closed 09/02/2017 09/02/2018 1 1 Encounter Details Date Type Department Care Team Description 09/01/2017 [facility] Anoop Emery Specified Disorders Of Muscle (Primary Dx); AND MARVIN Ruiz M.D. Constipation; [address] [place] [address] [address] [facility] [place] [address] [place], [place] [phone] Social History Tobacco Use Types Packs/Day Years [...] do you attend judaism or Never 2021 quaker services? Do you [...] Orthopedic Surgery Deon Herrera M.D. [address] [place], [place] [phone] (Wo rk) Scheduled Referrals [...]
--- OUTSIDE RECORDS SUMMARY | 2022-01-25 16:36 | XMS_ITS | Encounter Summary ---
:1955 Author Organization [facility] Address [address] [place] [address] Care Team Providers Name Role Phone Unavailable Primary Care Provider Unavailable Encounter Details Date Type Department Care Team Description 01/09/2017 Abstract Department of Family Medicine, Provider, Historical [facility], in [place], [place] [address] [place] [address] [facility] [phone] Social History Tobacco Use Types Packs/Day Years [...] do you attend rastafarian or Never 2021 anabaptism services? Do you [...] Visit Orthopedic Surgery Deon Herrera M.D. [address] [place] [phone] (Wo rk) documented as of this encounter Visit Diagnoses Not on filedocumented in this encounter Additional Health Concerns Assessment Noted Time PHQ-9 Depression Total Score: 5 04/29/2016 10:10 AM CS T documented as of this encounter
--- OUTSIDE RECORDS SUMMARY | 2022-01-25 16:36 | XMS_ITS | Encounter Summary ---
:1955 Author Organization [facility] Address [address] [place] [address] Care Team Providers Name Role Phone Unavailable Primary Care Provider Unavailable Encounter Details Date Type Department Care Team Description 12/30/2016 Hospital Encounter HX [facility] Meghna Valdez M .D., M.P.H. [address] [place], [place] [phone] (Wo rk) Social History [...] do you attend orthodox or Never 2021 sabianism services? Do [...] Orthopedic Surgery Deon Herrera M.D. [address] [place] [phone] (Wo rk) documented as of this [...] 1.10 MGDL HXeGFR (MDRD) >60 >=60 POWERCHART [id number] eGFR >60 >=60 POWERCHART Black/ [id number] Filipino Specimen (Source) Anatomical Collection Method Collection Time [...]
--- OUTSIDE RECORDS SUMMARY | 2022-01-25 16:36 | XMS_ITS | Encounter Summary ---
:[address] [facility] Address [address] [place] [address] Care Team Providers Name Role Phone Unavailable Primary Care Provider Unavailable Encounter Details Date Type Department Care Team Description 05/01/2016 Hospital Encounter HX [facility] Guido Man M.D. [address] [place] [address], [address] [place] [address] (Wo rk) Social History [...] do you attend sabianism or Never 2021 yazidi services? Do you [...] Comments Blood Pressure 114/74 05/01/2016 1:54 PM ORGAN TUNER ELECTRONIC Pulse - - Temperature - - Respiratory Rate - - Oxygen Saturation - - Inhaled Oxygen Concentration - - Weight 123 kg (271 lb 4.4 oz) 05/01/2016 1:54 PM ORGAN TUNER ELECTRONIC Height - - Body Mass Index 40.18 [...] Man M.D. - 05/01/2016 1:29 PM CST [id number] CHIEF COMPLAINT/REASON FOR VISIT Left shoulder pain, [...] x-rays performed of her left clavicle in [place]. She brought the images for me today [...] the x-rays that she had performed at [facility]. 3. I am going to have [...] Yobani Man M.D./veena cc: [place] [address] Electronically Signed By: YOBANI MAN MD On: 05/06/2016 11:37 AM Modified by and Electronically Signed by: YOBANI MAN MD On: 05/06/2016 11:37 AM Source: [facility] MHSDOLBEYNONRADSYS Document Id: [id number] N TUNER ELECTRONIC documented in this encounter Nursing Notes Wilda Giraldo L.P.N. - 05/07/2016 5:01 PM CST xray results Patient notified of results and will call back if she decides to move forward with left subacromialinjection. Electronically Signed By: WILDA GIRALDO LPN On: 05/07/2016 05:02 PM [facility] Document Id: [id number] N TUNER ELECTRONIC Wilda Giraldo L.P.N. - 05/01/2016 2:41 PM CST Lyviria Called in Electronically Signed By: WILDA GIRALDO LPN On: 05/01/2016 02:42 PM Source: [facility] Document Id: [id number] N TUNER ELECTRONIC documented in this encounter Miscellaneous Notes Miscellaneous - Wilda Giraldo L.P.N. - 05/01/2016 1:54 PM CST Adult Acute Care Nurse Practitioner Intake/History Adult Acute Care Nurse Practitioner Intake/History Entered On: 05/01/2016 13:56 ORGAN TUNER ELECTRONIC Performed On: 05/01/2016 13:54 ORGAN TUNER ELECTRONIC by WILDA GIRALDO LPN Intake Systolic Blood Pressure : 114 mmHg Diastolic Blood Pressure : 74 mmHg NIBP Mean : 87 mmHg BP Location : Left upper extremity Blood Pressure Cuff Size : Regular Actual Weight : 123.05 kg(Converted to: 271 lb 4 oz) Dosing Weight Clinic : 123.05 kg WILDA GIRALDO LPN - 05/01/2016 13:54 ORGAN TUNER ELECTRONIC General Info Information Given By : Patient Languages : Burkinan Is Patient Female and 13-50 no hysterectomy : No WILDA GIRALDO LPN - 05/01/2016 13:54 ORGAN TUNER ELECTRONIC Subjective Pain Symptoms : No WILDA GIRALDO LPN - 05/01/2016 13:54 ORGAN TUNER ELECTRONIC Dependent Habits Exposure to Tobacco Smoke : Other: never Smoking Status : Never smoker Tobacco 2A : No Tobacco Use/Currently Using : No Tobacco Use/Last 30 Days : No Tobacco Use/Last 12 months : No WILDA GIRALDO LPN - 05/01/2016 13:54 ORGAN TUNER ELECTRONIC [facility] Document Id: [id number] ORGAN TUNER ELECTRONIC!22 N TUNER ELECTRONIC documented in this encounter Plan of Treatment Upcoming Encounters Date Type Specialty Care Team Description 02/04/2022 Office Visit Orthopedic Surgery Deon Herrera M.D. [address] [place], [place] [phone] (Wo rk) documented as of this encounter Visit Diagnoses Not on filedocumented in this encounter Additional Health Concerns Assessment Noted Time PHQ-9 Depression Total Score: 5 04/29/2016 10:10 AM CS T documented as of this encounter
--- OUTSIDE RECORDS SUMMARY | 2022-01-25 16:36 | XMS_ITS | Encounter Summary ---
:1955 Author Organization [facility] Address [address] [place] [address] Care Team Providers Name Role Phone Unavailable Primary Care Provider Unavailable Encounter Details Date Type Department Care Team Description 06/27/2016 Hospital Encounter HX [facility] NEUROLOGY Meghna Valdez M.D., M.P.H. [address] [place] [address] (Wo rk) Social History Tobacco [...] do you attend christianity or Never 2021 buddhist services? Do you [...] M.D., M.P.H. - 06/27/2016 12:31 PM CDT [id number] REFERRAL SOURCE Yobani Padilla MD CHIEF COMPLAINT/REASON [...] she has had multiple sleep studies at [facility], but unfortunately the only one we were able to obtain was a CPAP titration study and we were unable to obtain any diagnostic polysomnograms. The patient sees Dr. Dian Harris at [facility]. The patient states she has [...] The patient has also been seen in [facility] by Dr. Argeila Barreto. It also looks as though she has seen Dr. Yobany Valerio at the [facility] for an EMG nerve [...] 9) plantar fasciitis, 10) sleep apnea, 11) copy chief grogginess due to malfunctioning CPAP, 12) notable low back pain over L1, L2, DSPs, and left-sided nerve root exit. He recommended orthopedic evaluation for surgical recommendations. The patient has had restless legs syndrome for many years and she is not on a dopamine agonist. The patient is also seeing Dr. Yayo Rodriguez in the [facility] who concluded she had a chronicpain syndrome. [...] MD MPH On: 06/28/2016 04:28 PM Source: [facility] MHSDOLBEYNONRADSYS Document Id: [id number] documented in this encounter Miscellaneous Notes Miscellaneous - Samara Mishra, RCandyN. - 08/13/2016 12:49 PM CDT lyrica Document Contains Addenda Addendum by MONICA DE JESUS RN on August 13, 2016 15:43:19 CDT called into [facility] Addendum by YOBANI PADILLA MD on August 13, 2016 13:04:02 CDT From: YOBANI PADILLA [facility]; Sent: 08/13/2016 13:04:02 CDT Subject: RE: lyrica Please call. Thanks. Addendum by YOBANI PADILLA MD on August 13, 2016 13:03:56 CDT Submitted: Order:pregabalin (Lyrica 150 mg oral capsule) 1 cap(s) PO 2xDay Qty: 60 cap(s) Refills: 5 Substitutions Allowed Don't Print - called to pharmacy (Rx) Signed by YOBANI PADILLA MD 08/13/2016 13:03:48 From: SAMARA MISHRA RN ([facility] Medication Refill) To: YOBANI PADILLA MD; Sent: 08/13/2016 12:49:25 CDT Subject: lyrica Caller is: ( ) Patient ( ) Mother ( ) Father ( ) Spouse ( ) Daughter ( ) Son ( [facility] [place] [phone]; fax [phone] ) Pharmacy ( ) Other: Provider: juan Pharmacy: Name of Medications Needing Refill: lyrica 150 mg Last Refill Date: 07/15/16 qty 60 Additional Information: 1 cap po BID.... Last / Future Appointment: 06/04/16; 08/28/16 Disposition: ( x ) Send to Pharmacy ( ) Call to Pharmacy ( ) Patient will poultry picker Script ( ) Mail Rxto Patient Source: [facility] POWERCHART Document Id: [id number] Electronically signed by Priya [facility] Permit Review Assistant [id number] at 08/27/2016 7:05 AM CDT Miscellaneous - Lani Valdez M.D., M.P.H. - 06/27/2016 4:10 PM CDT Ambulatory Patient Summary [address] [id number] Visit Information Name: YAZ CARO [facility] Number: [id number] Current Date: 06/27/2016 16:10:45 [...] day (at bedtime) New Routed to [address] [id number] multivitamin (multivitamin) omega-3 polyunsaturated fatty acids (Fish [...] if you dont have one. Go to [email or web address] and click on Create Your Account. Then, follow the directions to complete the online form. Youll be asked for your [facility] number which you can find at the top of this document. Your Goals/Additional instructions: Source: [facility] POWERCHART Document Id: [id number] Miscellaneous - Lani Valdez M.D., M.P.H. - 06/27/2016 4:10 PM CDT Ambulatory Discharge Medication List [address] [id number] Visit Information Name: YAZ CARO [facility] Number: [id number] Current Date: 06/27/2016 16:10:44 [...] day (at bedtime) New Routed to [address] [id number] multivitamin (multivitamin) omega-3 polyunsaturated fatty acids (Fish [...] MPH Signed On:27-JUN-2016 16:10:42 Additional Information: Source: [facility] POWERCHART Document Id: [id number] Miscellaneous - Julienne Elmore L.PCandyNCandy - 06/27/2016 1:01 PM CDT [place] Sleepiness Scale [place] Sleepiness Scale Entered On: 06/27/2016 13:02 CDT Performed On: 06/27/2016 13:01 CDT by JULIENNE ELMORE LPN [place] Sleepiness Scale [place] sitting and reading : Slight chance of dozing [place] watching TV : No chance of dozing [place] sitting in public : No chance of dozing [place] passenger in car : Moderate chance of dozing [place] in a car stopped in traffic : Slight chance of dozing [place] Lying down to rest : Moderate chance of dozing [place] sitting and talking : Slight chance of dozing [place] sitting quietly after lunch : Slight chance of dozing [place] Total Score : 8 JULIENNE ELMORE LPN - 06/27/2016 13:01 CDT Source: [employer] Document Id: [id number] CDT!11 Miscellaneous - Julienne Elmore L.P.N. - 06/27/2016 12:56 PM CDT Adult Faculty Research Physician Intake/History Adult Faculty Research Physician Intake/History Entered On: 06/27/2016 12:59 CDT Performed [...] Communication Mode : Verbal, Written Languages : Paraguayan Is Patient Female and 13-50 no hysterectomy [...] Lang LPN - 06/27/2016 12:56 CDT [facility] Document Id: [id number] CDT!26 documented in this encounter Plan of Treatment Upcoming Encounters Date Type Specialty Care Team Description 02/04/2022 Office Visit Orthopedic Surgery Deon Herrera M.D. [address] [place] [phone] (Wo rk) documented as of this encounter Visit Diagnoses Not on filedocumented in this encounter Additional Health Concerns Assessment Noted Time PHQ-9 Depression Total Score: 5 04/29/2016 10:10 AM CS T documented as of this encounter
--- OUTSIDE RECORDS SUMMARY | 2022-01-25 16:36 | XMS_ITS | Encounter Summary ---
:1955 Author Organization [facility] Address [address] [place] [address] Care Team Providers Name Role Phone Unavailable Primary Care Provider Unavailable Encounter Details Date Type Department Care Team Description 08/28/2016 Hospital Encounter HX [facility] Guido Man M.D. [address] [place] [address], [address] [place] [address] (Wo rk) Social History Tobacco [...] do you attend confucianism or Never 2021 congregational services? Do you [...] Man M.D. - 08/28/2016 10:27 AM CDT [id number] CHIEF COMPLAINT/REASON FOR VISIT Bilateral foot pain, [...] MAN MD On: 09/03/2016 04:31 PM Source: [facility] MHSDOLBEYNONRADSYS Document Id: [id number] documented in this encounter Miscellaneous Notes Telephone [...] like update on prior auth. Please call [phone] Addendum by KATE GIRALDO LPN on August 28, 2016 16:48:50 CDT Notified that will start prior auth From: CHELA CASTILLO ( [place] Wheelchair Driver) To: Physical Medicine and Rehabilitation Staff; Sent: [...] for both. Please call her back at [phone]. Advice/Action: Source used: ( ) Verbalizes understanding [...] back cell phone number ( ) Source: [facility] [employer] Document Id: [id number] Miscellaneous - Yobani Man M.D. - 08/28/2016 11:24 AM CDT Ambulatory Patient Summary [address] [id number] Visit Information Name: YAZ CARO [facility] Number: [id number] Current Date: 08/28/2016 11:24:28 Physicians [...] a 24 hr period Routed to [address] [place], [place] [id number] loratadine (loratadine 10 mg oral tablet) 1 [...] form. Youll be asked for your [facility] number which you can find at the top of this document. Your Goals/Additional instructions: Source: [facility] POWERCHART Document Id: [id number] Miscellaneous - Yobani Man M.D. - 08/28/2016 11:24 AM CDT Ambulatory Discharge Medication List [address] [id number] Visit Information Name: YAZ CARO [facility] Number: [id number] Current Date: 08/28/2016 11:24:27 Attending [...] within a 24 hr period Routed to [address] [id number] loratadine (loratadine 10 mg oral tablet) 1 [...] MD Signed On:28-AUG-2016 11:24:00 Additional Information: Source: [facility] [employer] Document Id: [id number] Miscellaneous - Kate Giraldo L.P.N. - 08/28/2016 10:53 AM CDT Adult Net Developer Contract Intake/History Adult Net Developer Contract Intake/History Entered On: 08/28/2016 10:55 CDT Performed [...] Information Given By : Patient Languages : Georgian Is Patient Female and 13-50 no hysterectomy [...] GIRALDO LPN - 08/28/2016 10:53 CDT [facility] Document Id: [id number] CDT!22 Miscellaneous - Yobani Man M.D. - 08/28/2016 12:00 AM CDT [id number] August 28, 2016 RE: Yaz Caro : [...] M.D. Department of Physical Medicine and Rehabilitation [place] [address] Phone: cac Electronically Signed By: YOBANI MAN MD On: 09/03/2016 04:41 PM Modified by and Electronically Signed by: YOBANI MAN MD On: 09/03/2016 04:41 PM Source: [facility] MHSDOLBEYNONRADSYS Document Id: [id number] documented in this encounter Plan of Treatment Upcoming Encounters Date Type Specialty Care Team Description 02/04/2022 Office Visit Orthopedic Surgery Deon Herrera M.D. [address] [place] [phone] (Wo rk) documented as of this encounter Visit Diagnoses Not on filedocumented in this encounter Additional Health Concerns Assessment Noted Time PHQ-9 Depression Total Score: 5 04/29/2016 10:10 AM CS T documented as of this encounter
--- OUTSIDE RECORDS SUMMARY | 2022-01-25 16:36 | XMS_ITS | Encounter Summary ---
:1955 Author Organization [facility] Address [address] [place] [address] Care Team Providers Name Role Phone Unavailable Primary Care Provider Unavailable Encounter Details Date Type Department Care Team Description 12/17/2016 Hospital Encounter HX [facility] LULR Guido Man M.D. [address] [place] [address], [address] [place] [address] (Wo rk) Social History Tobacco [...] do you attend baptism or Never 2021 adventist services? Do you [...] Man M.D. - 12/17/2016 10:52 AM CDT [id number] CHIEF COMPLAINT/REASON FOR VISIT Right lateral hip [...] MAN MD On: 12/19/2016 02:19 PM Source: [facility] MHSDOLBEYNONRADSYS Document Id: [id number] documented in this encounter Procedure Notes Yobani [...] MAN MD On: 12/19/2016 02:19 PM Source: [facility] MHSDOLBEYNONRADSYS Document Id: [id number] documented in this encounter Miscellaneous Notes Miscellaneous - Kate Giraldo L.P.N. - 12/17/2016 12:52 PM CDT Reminder Msg Document Contains Addenda Addendum by KATE GIRLADO LPN on January 01, 2017 15:43:03 CDT [...] Patient ( ) ( ) Call for Frame Coverer ( ) Follow up on Results ( ) Other: PROVIDER: ( ) Call Physician ( ) Call Pharmacist ( ) Call Lab ( ) Other: Special Instructions: Comments: Source: [facility] POWERCHART Document Id: [id number] Miscellaneous - Yobani Man M.D. - 12/17/2016 12:27 PM CDT Ambulatory Patient Summary [facility] [address] [place] [id number] Visit Information Name: YAZ CARO [facility] Number: [id number] Current Date: 12/17/2016 12:27:43 [...] dont have one. Go to [email or web address] and click on Create Your Account. Then, follow the directions to complete the online form. Youll be asked for your [facility] number which you can find at the top of this document. Your Goals/Additional instructions: Source: [facility] POWERCHART Document Id: [id number] Miscellaneous - Yobani Man M.D. - 12/17/2016 12:27 PM CDT Ambulatory Discharge Medication List [address] [id number] Visit Information Name: YAZ CARO [facility] Number: [id number] Current Date: 12/17/2016 12:27:42 [...] MD Signed On:17-DEC-2016 12:27:22 Additional Information: Source: [facility] POWERCHART Document Id: [id number] Miscellaneous - Kate Giraldo L.P.N. - 12/17/2016 11:12 AM CDT Adult Long Chain Beamer Intake/History Adult Long Chain Beamer Intake/History Entered On: 12/17/2016 11:14 CDT Performed [...] Information Given By : Patient Languages : Cambodian Is Patient Female and 13-50 no hysterectomy [...] GIRALDO LPN - 12/17/2016 11:12 CDT Source: [facility] POWERCHART Document Id: [id number] CDT!25 documented in this encounter Plan of Treatment Upcoming Encounters Date Type Specialty Care Team Description 02/04/2022 Office Visit Orthopedic Surgery Deon Herrera M.D. [address] [place] [phone] (Wo rk) documented as of this encounter Visit Diagnoses Not on filedocumented in this encounter Additional Health Concerns Assessment Noted Time PHQ-9 Depression Total Score: 5 04/29/2016 10:10 AM CS T documented as of this encounter
--- OUTSIDE RECORDS SUMMARY | 2022-01-25 16:36 | XMS_ITS | Encounter Summary ---
:1955 Author Organization [facility] Address [address] [place] [address] Care Team Providers Name Role Phone Unavailable Primary Care Provider Unavailable Encounter Details Date Type Department Care Team Description 01/14/2017 Orders Only Department of Neurology in Meghna Valdez M.D., [place], [place] M.P.H. [address] [place] [address] [place], [place] [phone] (Wo rk) Social History Tobacco Use [...] do you attend sikhism or Never 2021 nondenominational services? Do you [...] Orthopedic Surgery Deon Herrera M.D. [address] [place], [place] [phone] (Wo rk) documented as of this encounter Visit Diagnoses Diagnosis Hypersomnia documented in this encounter Additional Health Concerns Assessment Noted Time PHQ-9 Depression Total Score: 5 04/29/2016 10:10 AM CS T documented as of this encounter
--- OUTSIDE RECORDS SUMMARY | 2022-01-25 16:36 | XMS_ITS | Encounter Summary ---
:1955 Author Organization [facility] Address [address] [place] [address] Care Team Providers Name Role Phone Unavailable Primary Care Provider Unavailable Encounter Details Date Type Department Care Team Description 12/18/2015 Hospital Encounter HX RST PRC JANINAFEKaye Barbosa, ADULT POLYGRAPH TECHNICIAN, OCCUPATIONAL HEALTH AND SAFETY MANAGER, R.N. [address] [facility] PRATHER, Evar[address] [place], [place] [address] (Wo rk) Social History Tobacco Use Types [...] do you attend mosque or Never 2021 holiness services? Do you [...] Orthopedic Surgery Deon Herrera M.D. [address] [place], [place] [phone] (Wo rk) documented as of this encounter Visit Diagnoses Not on filedocumented in this encounter Additional Health Concerns Assessment Noted Time PHQ-9 Depression Total Score: 4 08/10/2015 9:06 AM CDT documented as of this encounter
--- OUTSIDE RECORDS SUMMARY | 2022-01-25 16:36 | XMS_ITS | Encounter Summary ---
:1955 Author Organization [facility] Address [address] [place] [address] Care Team Providers Name Role Phone Unavailable Primary Care Provider Unavailable Encounter Details Date Type Department Care Team Description 12/26/2016 Hospital Encounter HX [facility] NEUROLOGY Meghna Maradiaga M.D., M.P.H. [address] [place] [address] (Wo rk) Social History Tobacco [...] do you attend episcopalian or Never 2021 sikh services? Do you [...] M.D., M.P.H. - 12/26/2016 10:28 AM CDT [id number] HISTORY OF PRESENT ILLNESS A 61-year-old woman [...] MPH On: 01/02/2017 09:07 AM Source: [facility] MHSDOLBEYNONRADSYS Document Id: [id number] documented in this encounter Miscellaneous Notes Miscellaneous - Maxine Maradiaga M.D., M.P.H. - 12/26/2016 12:14 PM CDT Ambulatory Patient Summary [address] [id number] Visit Information Name: YAZ CARO [facility] Number: [id number] Current Date: 12/26/2016 12:14:10 Physicians [...] a day (at bedtime) New Routed to [address] [phone] hydrochlorothiazide-quinapril (hydrochlorothiazide -quinapril 12.5mg- 20mg) 1 Tablet(s), [...] if you dont have one. Go to [email or web address] and click on Create Your Account. Then, follow the directions to complete the online form. Youll be asked for your [facility] number which you can find at the top of this document. Your Goals/Additional instructions: Source: [facility] POWERCHART Document Id: [id number] Miscellaneous - Maxine Maradiaga M.D., M.P.H. - 12/26/2016 12:14 PM CDT Ambulatory Discharge Medication List [address] [id number] Visit Information Name: YAZ CARO [facility] Number: [id number] Current Date: 12/26/2016 12:14:09 Attending [...] a day (at bedtime) New Routed to [address] [id number] hydrochlorothiazide-quinapril (hydrochlorothiazide -quinapril 12.5mg- 20mg) 1 Tablet(s), [...] Signed On:26-DEC-2016 12:14:05 Additional Information: Source: [facility] POWERCHART Document Id: [id number] Miscellaneous - Analy Jung L.PCandyNCandy - 12/26/2016 [...] Internal electrodes/wires : No Neurostimulator/Biostimulator : No [place] devi catheter : No ANALY JUNG LPN [...] No Penile Implant : No Breast Tissue Household Worker/Implant : No : No (document number of weeks in Comment) : No Surgery : No ANALY JUNG LPN - 12/26/2016 11:59 CDT Claustrophobic : No Pain/Unable to Lay Still : No Metal In or Removed from Eyes Ever : No Form Completed : Yes Education Materials Provided : No ANALY JUNG LPN 12/26/2016 11:59 CDT Source: [employer] Document Id: [id number] CDT!49 Miscellaneous - Analy Jnug L.P.N. - 12/26/2016 11:04 AM CDT CPAP From: ANALY JUNG LPN ([facility] Nurse) Sent: 12/26/2016 11:04:00 CDT Subject: CPAP CPAP machine is from [facility] [phone]. Source: [employer] Document Id: [id number] Miscellbernard - Analy Jung L.PLiss - 12/26/2016 10:42 AM CDT Harris Sleepiness Scale Harris Sleepiness Scale Entered On: 12/26/2016 10:44 CDT Performed On: 12/26/2016 10:42 CDT by ANALY JUNG LPN Harris Sleepiness Scale Harris sitting and reading : Moderate chance of dozing Harris watching TV : Slight chance of dozing Harris sitting in public : Slight chance of dozing Harris passenger in car : High chance of dozing Harris in a car stopped in traffic : Slight chance of dozing Harris Lying down to rest : Moderate chance of dozing Harris sitting and talking : Slight chance of dozing Harris sitting quietly after lunch : Slight chance of dozing Harris Total Score : 12 ANALY JUNG LPN - 12/26/2016 10:42 CDT Source: [employer] Document Id: [id number] CDT!11 Miscellaneous - Analy Jung L.PLiss - 12/26/2016 10:40 AM CDT Adult Oil Change Technician Intake/History Adult Oil Change Technician Intake/History Entered On: 12/26/2016 10:42 CDT Performed [...] Information Given By : Patient Languages : Brazilian Is Patient Female and 13-50 no hysterectomy [...] JUNG LPN - 12/26/2016 10:40 CDT Source: [employer] POWERCHART Document Id: [id number] CDT!28 documented in this encounter Plan of Treatment Upcoming Encounters Date Type Specialty Care Team Description 02/04/2022 Office Visit Orthopedic Surgery Deon Herrera M.D. [address] [place], [place] [phone] (Wo rk) documented as of this encounter Visit Diagnoses Not on filedocumented in this encounter Additional Health Concerns Assessment Noted Time PHQ-9 Depression Total Score: 5 04/29/2016 10:10 AM CS T documented as of this encounter
--- OUTSIDE RECORDS SUMMARY | 2022-01-25 16:36 | XMS_ITS | Encounter Summary ---
:1955 Author Organization [facility] Address [address] [place] [address] Care Team Providers Name Role Phone Unavailable Primary Care Provider Unavailable Encounter Details Date Type Department Care Team Description 10/24/2016 Hospital Encounter HX [facility] LULR Guido Man M.D. [address] [place] [address], [address] [place] [address] (Wo rk) Social History Tobacco [...] do you attend zoroastrianism or Never 2021 protestant services? Do you [...] Man M.D. - 10/24/2016 3:52 PM CDT [id number] CHIEF COMPLAINT/REASON FOR VISIT Bilateral foot pain [...] MAN MD On: 10/28/2016 12:01 PM Source: [facility] MHSDOLBEYNONRADSYS Document Id: [id number] documented in this encounter Miscellaneous Notes Miscellaneous - Juilenne Parson L.P.N. - 11/04/2016 9:35 AM CDT [...] cap(s) Refills: 5 Substitutions Allowed Print - [id number] on [employer] Signed by YOBANI MAN MD 11/04/2016 10:05:20 From: JULIENNE PARSON LPN ([facility] Nurse) To: YOBANI MAN MD; Sent: 11/04/2016 09:35:06 CDT Subject: lyrica 50mg refill On hold pending signature Order:pregabalin (Lyrica 50 mg oral capsule) 1 cap(s) PO Daily Qty: 30 cap(s) Refills: 5 Substitutions Allowed Print - [id number] on [employer] (from [id number]) in session 83 Caller is: ( ) Patient ( ) Mother ( ) Father ( ) Spouse ( ) Daughter ( ) Son ( ) Pharmacy ( ) Other: Provider: Dr. Man Pharmacy: [facility] Name of Medications Needing Refill: lyrica 50mg Last Refill Date: 11/02/16 Additional Information: Take 1 capsule by mouth daily Last / Future Appointment: Disposition: ( ) Send to Pharmacy ( ) Call to Pharmacy ( ) Patient will oyster picker Script ( ) Mail Rx to Patient Source: [facility] POWERCHART Document Id: [id number] Miscellaneous - Yobani Man M.D. - 10/24/2016 4:52 PM CDT Ambulatory Patient Summary [facility] [address] [place] [id number] Visit Information Name: YAZ ADAMES [facility] Number: [id number] Current Date: 10/24/2016 16:52:38 [...] Tho Polk 12/03/2016 15:30 FBCV PM&R Yobani Mna MD Attention: Contact your local Clinic if [...] if you dont have one. Go to [email or web address] and click on Create Your Account. Then, follow the directions to complete the online form. Youll be asked for your [facility] number which you can find at the top of this document. Your Goals/Additional instructions: Source: [facility] POWERCHART Document Id: [id number] Miscellaneous - Yobani Man M.D. - 10/24/2016 4:52 PM CDT Ambulatory Discharge Medication List [address] [id number] Visit Information Name: YAZ ADAMES [facility] Number: [id number] Current Date: 10/24/2016 16:52:37 [...] MD Signed On:24-OCT-2016 16:52:16 Additional Information: Source: [facility] POWERCHART Document Id: [id number] Miscellaneous - Kate Giraldo LCandyPCandyN. - 10/24/2016 4:07 PM CDT Adult Parole Supervisor Intake/History Adult Parole Supervisor Intake/History Entered On: 10/24/2016 16:08 CDT Performed [...] Information Given By : Patient Languages : Anguillan Is Patient Female and 13-50 no hysterectomy [...] ARDEN VARGAS - 10/24/2016 16:07 CDT Source: [employer] Document Id: [id number] CDT!22 documented in this encounter Plan of Treatment Upcoming Encounters Date Type Specialty Care Team Description 02/04/2022 Office Visit Orthopedic Surgery Deon Herrera M.D. [address] [place], [place] [phone] (Wo rk) documented as of this encounter Visit Diagnoses Not on filedocumented in this encounter Additional Health Concerns Assessment Noted Time PHQ-9 Depression Total Score: 5 04/29/2016 10:10 AM CS T documented as of this encounter
--- OUTSIDE RECORDS SUMMARY | 2022-01-25 16:36 | XMS_ITS | Encounter Summary ---
:1955 Author Organization [facility] Address [address] [place] [address] Care Team Providers Name Role Phone Unavailable [...] do you attend synagogue or Never 2021 taoism services? Do you [...] Surgery Lonny Herrera M.D. [address] [place], [place] [phone] (Wo rk) documented as [...]
--- OUTSIDE RECORDS SUMMARY | 2022-01-25 16:36 | XMS_ITS | Encounter Summary ---
:1955 Author Organization [facility] Address [address] [place] [address] Care Team Providers Name Role Phone Unavailable Primary Care Provider Unavailable Encounter Details Date Type Department Care Team Description 11/07/2016 Hospital Encounter HX [facility] NEUROLOGY Meghna Valdez M.D., M.P.H. [address] [place] [address] (Wo rk) Social History Tobacco [...] do you attend judaism or Never 2021 mandaeism services? Do you [...] M.D., M.P.H. - 11/07/2016 1:10 PM CDT [id number] CHIEF COMPLAINT/REASON FOR VISIT Followup on insomnia [...] machine and she does not bring the [employer] machine in today. I did have her [...] MD MPH On: 11/15/2016 03:00 PM Source: [facility] MHSDOLBEYNONRADSYS Document Id: [id number] documented in this encounter Plan of Treatment Upcoming Encounters Date Type Specialty Care Team Description 02/04/2022 Office Visit Orthopedic Surgery Deon Herrera M.D. [address] [place], [place] [phone] ([facility]) documented as of this encounter Visit Diagnoses Not on filedocumented in this encounter Additional Health Concerns Assessment Noted Time PHQ-9 Depression Total Score: 5 04/29/2016 10:10 AM CS T documented as of this encounter
--- OUTSIDE RECORDS SUMMARY | 2022-01-25 16:36 | XMS_ITS | Encounter Summary ---
:1955 Author Organization [facility] Address [address] [place] [address] Care Team Providers Name Role Phone Unavailable Primary Care Provider Unavailable Encounter Details Date Type Department Care Team Description 08/29/2016 Hospital Encounter HX [facility]BCV NEUROLOGY Meghna Valdez M.D., M.P.H. [address] [place] [address] (Wo rk) Social History Tobacco [...] do you attend baptist or Never 2021 congregation services? Do you [...] M.D., M.P.H. - 08/29/2016 1:01 PM CDT [id number] CHIEF COMPLAINT/REASON FOR VISIT Peripheral neuropathy. HISTORY [...] to. She was in [place], somewhere near [place], visiting her mother who was injured and [...] day and 50 one time a day. [place]-3 fish oil. Aspirin 81 mg. Venlafaxine XR [...] is 22. She weighs 122.4 kg. Her [place] sleepiness score today was 9 but she [...] going on since she was gone to [facility] to see her mother. IMPRESSION/REPORT/PLAN 1. [...] MD MPH On: 08/30/2016 02:51 PM Source: [facility] MHSDOLBEYNONRADSYS Document Id: [id number] documented in this encounter Nursing Notes Maninder Mena CCandyM.ACandy - 08/30/2016 10:50 AM CDT Prior Authorizatin request for Lidocaine Prior Authorization request for Lidocaine completed through cover my meds, posadas [id number] time spent onrequest 20 minutes . Electronically Signed By: MANINDER MENA CMA On: 08/30/2016 10:50 AM Source: [facility] [employer]BioCrit[employer] Document Id: [id number] documented in this encounter Miscellaneous Notes Miscellaneous - Lani Valdez M.D., M.P.H. - 08/29/2016 4:12 PM CDT Ambulatory Patient Summary [address] [id number] Visit Information Name: YAZ ADAMES [facility] Number: [id number] Current Date: 08/29/2016 16:12:21 Physicians [...] online form. Youll be asked for your [facility] number which you can find at the top of this document. Your Goals/Additional instructions: Source: [facility] POWERCHART Document Id: [id number] Miscellaneous - Lani Valdez M.D., M.P.H. - 08/29/2016 4:12 PM CDT Ambulatory Discharge Medication List [address] [id number] Visit Information Name: YAZ ADAMES [facility] Number: [id number] Current Date: 08/29/2016 16:12:20 Attending [...] MPH Signed On:29-AUG-2016 16:12:18 Additional Information: Source: [facility] POWERCHART Document Id: [id number] Miscellaneous - Analy Jung L.P.N. - 08/29/2016 2:46 PM CDT [place] Sleepiness Scale [place] Sleepiness Scale Entered On: 08/29/2016 14:46 CDT Performed On: 08/29/2016 14:46 CDT by ANALY JUNG LPN [place] Sleepiness Scale [place] sitting and reading : Moderate chance of dozing [place] watching TV : No chance of dozing [place] sitting in public : Slight chance of dozing [place] passenger in car : Moderate chance of dozing [place] in a car stopped in traffic : Slight chance of dozing [place] Lying down to rest : No chance of dozing [place] sitting and talking : Slight chance of dozing [place] sitting quietly after lunch : Moderate chance of dozing [place] Total Score : 9 ANALY JUNG LPN - 08/29/2016 14:46 CDT [facility] Document Id: [id number] CDT!11 Miscellaneous - Analy Jung L.P.N. - 08/29/2016 1:15 PM CDT Adult Cytogenetic Technician Intake/History Adult Cytogenetic Technician Intake/History Entered On: 08/29/2016 13:21 CDT Performed [...] Information Given By : Patient Languages : Czech Is Patient Female and 13-50 no hysterectomy [...] JUNG LPN - 08/29/2016 13:15 CDT Source: [employer] Document Id: [id number] CDT!26 Miscellaneous - Analy Jung L.P.NCandy - 07/17/2016 10:03 AM CDT Custom Result Letter July 17, 2016 YAZ ADAMES [address] [place] [id number] Dear YAZ ADAMES, Dear Yaz, You have an upcoming appointment with - neurologist at the [facility] on July. This is a reminder to please bring your CPAP machine or chip with you at the time of your appointment so a download of your information can be read. Thank you Sincerely, ANALY JUNG Electronic Signature Electronically Signed By: ANALY JUNG LPN On: July 17, 2016 This document has images extracted. Source: [employer] Document Id: [id number] NING AND DEVELOPMENT DIRECTOR documented in this encounter Plan of Treatment Upcoming Encounters Date Type Specialty Care Team Description 02/04/2022 Office Visit Orthopedic Surgery Deon Herrera M.D. [address] [place], [place] [phone] (Wo rk) documented as of this encounter Visit Diagnoses Not on filedocumented in this encounter Additional Health Concerns Assessment Noted Time PHQ-9 Depression Total Score: 5 04/29/2016 10:10 AM CS T documented as of this encounter
--- OUTSIDE RECORDS SUMMARY | 2022-01-25 16:36 | XMS_ITS | Encounter Summary ---
:1955 Author Organization [facility] Address [address] [place] [address] Care Team Providers Name Role Phone Unavailable Primary Care Provider Unavailable Encounter Details Date Type Department Care Team Description 06/04/2016 Hospital Encounter HX [facility]BCV LULR Guido Man M.D. [address] [place] [address], [address] [place] [address] (Wo rk) Social History Tobacco [...] do you attend restoration or Never 2021 methodist services? Do you [...] Man M.D. - 06/04/2016 1:58 PM CDT [id number] CHIEF COMPLAINT/REASON FOR VISIT Follow up left [...] MAN MD On: 06/05/2016 04:13 PM Source: [facility] MHSDOLBEYNONRADSYS Document Id: [id number] documented in this encounter Procedure Notes Yobani [...] and understanding with this plan. Yobani Man M.D./delal Electronically Signed By: YOBANI MAN MD On: 06/05/2016 11:07 AM Modified by and Electronically Signed by: YOBANI MAN MD On: 06/05/2016 11:07 AM Source: [facility] MHSDOLBEYNONRADSYS Document Id: [id number] documented in this encounter Miscellaneous Notes Miscellaneous [...] Patient ( ) ( ) Call for Payloader Machine Operator ( ) Follow up on Results ( ) Other: PROVIDER: ( ) Call Physician ( ) Call Pharmacist ( ) Call Lab ( ) Other: Special Instructions: Comments: Source: [facility] POWERCHART Document Id: [id number] Electronically signed by Christine Powers Corncob Pipe Manufacturing Supervisor [id number] at 08/27/2016 2:17 AM CDT Miscellaneous - Yobani Man M.D. - 06/04/2016 3:20 PM CDT Ambulatory Patient Summary [address] [id number] Visit Information Name: EMMAYAZ CHRISTOPHER [facility] Number: [id number] Current Date: 06/04/2016 15:20:03 Physicians [...] if you dont have one. Go to [email or web address] and click on Create Your Account. Then, follow the directions to complete the online form. Youll be asked for your [facility] number which you can find at the top of this document. Your Goals/Additional instructions: Source: [facility] POWERCHART Document Id: [id number] Miscellaneous - Yobani Man M.D. - 06/04/2016 3:20 PM CDT Ambulatory Discharge Medication List [address] [id number] Visit Information Name: YAZ ADAMES [facility] Number: [id number] Current Date: 06/04/2016 15:20:02 Attending [...] MD Signed On:04-JUN-2016 15:19:07 Additional Information: Source: [facility] POWERCHART Document Id: [id number] Miscellaneous - Kate Giraldo L.PCandyNCandy - 06/04/2016 2:33 PM CDT Adult Taxi Proprietor Intake/History Adult Taxi Proprietor Intake/History Entered On: 06/04/2016 14:35 CDT Performed [...] Information Given By : Patient Languages : Maori Is Patient Female and 13-50 no hysterectomy [...] 06/04/2016 14:33 CDT [facility]: [email or web address] Document Id: [id number] CDT!22 documented in this encounter Plan of Treatment Upcoming Encounters Date Type Specialty Care Team Description 02/04/2022 Office Visit Orthopedic Surgery Deon Herrera M.D. [address] [place], [place] [phone] (Wo rk) documented as of this encounter Visit Diagnoses Not on filedocumented in this encounter Additional Health Concerns Assessment Noted Time PHQ-9 Depression Total Score: 5 04/29/2016 10:10 AM CS T documented as of this encounter
--- OUTSIDE RECORDS SUMMARY | 2022-01-25 16:36 | XMS_ITS | Encounter Summary ---
:1955 Author Organization [facility] Address [address] [place] [address] Care Team Providers Name Role Phone Unavailable Primary Care Provider Unavailable Encounter Details Date Type Department Care Team Description 12/30/2016 Hospital Encounter HX [facility] OWOC MRI Meghna Valdez M .D., M.P.H. [address] [place], [place] [phone] (Wo rk) Social History [...] do you attend restorationism or Never 2021 latter day services? Do [...] RT (R)(MR) - 12/30/2016 14:07 CDT Source: [facility] [employer] Document Id: [id number] CDT!13 documented in this encounter Plan of Treatment Upcoming Encounters Date Type Specialty Care Team Description 02/04/2022 Office Visit Orthopedic Surgery Deon Herrera M.D. [address] [place] [phone] (Wo rk) documented as of [...]
--- OUTSIDE RECORDS SUMMARY | 2022-01-25 16:36 | XMS_ITS | Encounter Summary ---
:1955 Author Organization [facility] Address [address] [place] [address] Care Team Providers Name Role Phone Unavailable Primary Care Provider Unavailable Encounter Details Date Type Department Care Team Description 03/19/2016 Hospital Encounter HX [facility] FBCV LULR Guido Man M.D. [address] [place] [address], [address] [place] [address] (Wo [...] do you attend buddhism or Never 2021 bahai services? Do you [...] Comments Blood Pressure 112/72 03/19/2016 11:12 AM DISTANCE LEARNING UNIT LEADER Pulse - - Temperature - - Respiratory Rate - - Oxygen Saturation - - Inhaled Oxygen Concentration - - Weight 120 kg (265 lb 1.7 oz) 03/19/2016 11:12 AM DISTANCE LEARNING UNIT LEADER Height - - Body Mass Index 39.26 [...] Man M.D. - 03/19/2016 11:01 AM CST [id number] CHIEF COMPLAINT/REASON FOR VISIT Follow up low [...] MAN MD On: 03/21/2016 03:48 PM Source: [facility] MHSDOLBEYNONRADSYS Document Id: [id number] ANCE LEARNING UNIT LEADER documented in this encounter Miscellaneous Notes Telephone Encounter - Conversion, Historical Provider Ser - 03/21/2016 4:02 PM CST *Phone Message/Dr. Man Document Contains Addenda Addendum by KATE GIRALDO LPN on March 21, 2016 16:55:37 DISTANCE LEARNING UNIT LEADER Patient notified of xray results. From: CHELA CASTILLO ( [employer] C[employer]aker) To: Physical Medicine and Rehabilitation Staff; Sent: 03/21/2016 16:02:52 DISTANCE LEARNING UNIT LEADER Subject: *Phone Message/Dr. Man Caller is: ( [...] heard anything. Please call her back at [phone] with results. Advice/Action: Source used: ( ) [...] back cell phone number ( ) Source: [facility] [employer] Document Id: [id number] Miscellaneous - Yobani Man M.D. - 03/19/2016 12:15 PM CST Ambulatory Patient Summary [address] [id number] Visit Information Name: YAZ CARO [facility] Number: [id number] Current Date: 03/19/2016 12:15:29 Physicians [...] form. Youll be asked for your [facility] number which you can find at the top of this document. Your Goals/Additional instructions: Source: [facility] POWERCHART Document Id: [id number] ANCE LEARNING UNIT LEADER Miscellaneous - Yobani Man M.D. - 03/19/2016 12:15 PM CST Ambulatory Discharge Medication List [address] [id number] Visit Information Name: YAZ CARO [facility] Number: [id number] Current Date: 03/19/2016 12:15:28 Attending [...] MD Signed On:19-MAR-2016 12:14:49 Additional Information: Source: [facility] [employer] Document Id: [id number] ANCE LEARNING UNIT LEADER Miscellaneous - Kate Giraldo L.P.N. - 03/19/2016 11:12 AM CST Adult Wheel Alignment Technician Intake/History Adult Wheel Alignment Technician Intake/History Entered On: 03/19/2016 11:13 DISTANCE LEARNING UNIT LEADER Performed On: 03/19/2016 11:12 DISTANCE LEARNING UNIT LEADER by KATE GIRALDO LPN Intake Systolic Blood Pressure : 112 mmHg Diastolic Blood Pressure : 72 mmHg NIBP Mean : 85 mmHg BP Location : Left upper extremity Blood Pressure Cuff Size : Large Actual Weight : 120.25 kg(Converted to: 265 lb 2 oz) Dosing Weight Clinic : 120.25 kg KATE GIRALDO LPN - 03/19/2016 11:12 DISTANCE LEARNING UNIT LEADER General Info Information Given By : Patient Languages : Azeri Is Patient Female and 13-50 no hysterectomy : No KATE GIRALDO LPN - 03/19/2016 11:12 DISTANCE LEARNING UNIT LEADER Subjective Pain Symptoms : No KATE GIRALDO LPN - 03/19/2016 11:12 DISTANCE LEARNING UNIT LEADER Dependent Habits Exposure to Tobacco Smoke : Other: never Smoking Status : Never smoker Tobacco 2A : No Tobacco Use/Currently Using : No Tobacco Use/Last 30 Days : No Tobacco Use/Last 12 months : No KATE GIRALDO LPN - 03/19/2016 11:12 DISTANCE LEARNING UNIT LEADER [facility] Document Id: [id number] DISTANCE LEARNING UNIT LEADER!22 ANCE LEARNING UNIT LEADER documented in this encounter Plan of Treatment Upcoming Encounters Date Type Specialty Care Team Description 02/04/2022 Office Visit Orthopedic Surgery Deon Herrera M.D. [address] [place], [place] [phone] (Wo rk) documented as of this encounter Procedures Procedure Name Priority Date/Time Associated Diagnosis Comme nts DX FOOT RIGHT 3+ Routine 03/19/2016 12:25 PM Resu lts for this VIEWS DISTANCE LEARNING UNIT LEADER procedure are i n the results section. DX FOOT LEFT 3+ Routine 03/19/2016 12:25 PM Resul ts for this VIEWS DISTANCE LEARNING UNIT LEADER procedure are i n the results section. documented in this encounter Results DX Foot Left 3+ Views (03/19/2016 12:25 PM DISTANCE LEARNING UNIT LEADER) Anatomical Region Laterality Modality Lower Extremity, Foot Left Radiographic Imagi ng Specimen (Source) Anatomical Collection Method Collection Time Re ceived Time Location / / Volume Laterality 03/19/2016 12:25 PM DISTANCE LEARNING UNIT LEADER Addenda Addendum by Provider, Flynn Hopkins o tegan 03/19/2016 12:25 PM DISTANCE LEARNING UNIT LEADER RAD^^^OW XR Foot Left 3 or more views 03/19/2016 12:25:28 Impressions 03/19/2016 12:55 PM DISTANCE LEARNING UNIT LEADER ??Please see above dictation. Narrative 03/19/2016 12:55 PM DISTANCE LEARNING UNIT LEADER EXAM: ??XR Foot Left 3 or more [...] Foot Right 3+ Views (03/19/2016 12:25 PM DISTANCE LEARNING UNIT LEADER) Anatomical Region Laterality Modality Lower Extremity, Foot Right Radiographic Imagi ng Specimen (Source) Anatomical Collection Method Collection Time Re ceived Time Location / / Volume Laterality 03/19/2016 12:25 PM DISTANCE LEARNING UNIT LEADER Addenda Addendum by Provider, Flynn Hopkins 03/19/2016 12:25 PM DISTANCE LEARNING UNIT LEADER RAD^^^OW XR Foot Right 3 or more views 03/19/2016 12:25:28 Impressions 03/19/2016 12:56 PM DISTANCE LEARNING UNIT LEADER ??Please see above dictation. Narrative 03/19/2016 12:56 PM DISTANCE LEARNING UNIT LEADER EXAM: ??XR Foot Right 3 or more [...]
--- OUTSIDE RECORDS SUMMARY | 2022-01-25 16:37 | XMS_ITS | Encounter Summary ---
:1955 Author Organization [facility] Address [address] [place] [address] Care Team Providers Name Role Phone Unavailable Primary Care Provider Unavailable Encounter Details Date Type Department Care Team Description 08/11/2015 - Hospital Encounter HX RST PAIN REHAB Kaye Fitzpatrick 08/18/2015 PSYCH OP L, NAPPER GRINDER, UM NURSE, R. N. [address] PRATHER, Evaristo [address] [place], [place] [address] (Wo rk) Social History [...] do you attend moravian or Never 2021 episcopalian services? Do you [...] Orthopedic Surgery Deon Herrera M.D. [address] [place], [place] [phone] (Wo rk) documented as of this encounter Visit Diagnoses Not on filedocumented in this encounter Additional Health Concerns Assessment Noted Time PHQ-9 Depression Total Score: 4 08/10/2015 9:06 AM CDT documented as of this encounter
--- OUTSIDE RECORDS SUMMARY | 2022-01-25 16:37 | XMS_ITS | Encounter Summary ---
:1955 Author Organization [facility] Address [address] [place] [address] Care Team Providers Name Role Phone Unavailable Primary Care Provider Unavailable Encounter Details Date Type Department Care Team Description 08/11/2015 - Hospital Encounter HX RST PMR PT OT Denny Reddy 08/18/2015 L, P.T. [address] [place] [address] Social History Tobacco Use Types Packs/Day Years [...] do you attend mandaeism or Never 2021 pentecostalism services? Do you [...] Surgery Deon Herrera M.D. [address] [place], [place] [phone] (Wo rk) documented as of this encounter Visit Diagnoses Not on filedocumented in this encounter Additional Health Concerns Assessment Noted Time PHQ-9 Depression Total Score: 4 08/10/2015 9:06 AM CDT documented as of this encounter
--- OUTSIDE RECORDS SUMMARY | 2022-01-25 16:37 | XMS_ITS | Encounter Summary ---
:1955 Author Organization [facility] Address [address] [place] [address] Care Team Providers Name Role Phone Unavailable Primary Care Provider Unavailable Encounter Details Date Type Department Care Team Description 08/10/2015 - Hospital Encounter HX RST PAIN REHAB Keaton Hale 08/17/2015 PSYCH OP P, Ph.D., L.P. [address] [place] [phone] Social History Tobacco Use Types Packs/Day Years [...] do you attend methodist or Never 2021 adventism services? Do you [...] Orthopedic Surgery Deon Herrera M.D. [address] [place], [place] [phone] (Wo rk) documented as of this encounter Visit Diagnoses Not on filedocumented in this encounter Additional Health Concerns Assessment Noted Time PHQ-9 Depression Total Score: 4 08/10/2015 9:06 AM CDT documented as of this encounter
--- OUTSIDE RECORDS SUMMARY | 2022-01-25 16:37 | XMS_ITS | Encounter Summary ---
:1955 Author Organization [facility] Address [address] [place] [address] Care Team Providers Name Role Phone Unavailable Primary Care Provider Unavailable Encounter Details Date Type Department Care Team Description 08/11/2015 - Hospital Encounter HX RST PMR PT OT Clare Clay , 08/18/2015 O.T. [address] [facility] [place], [place] [address] (Wo rk) Social History [...] do you attend restorationism or Never 2021 lutheran services? Do you [...] Orthopedic Surgery Deon Herrera M.D. [address] [place], [place] [phone] (Wo rk) documented as of this encounter Visit Diagnoses Not on filedocumented in this encounter Additional Health Concerns Assessment Noted Time PHQ-9 Depression Total Score: 4 08/10/2015 9:06 AM CDT documented as of this encounter
--- OUTSIDE RECORDS SUMMARY | 2022-01-25 16:37 | XMS_ITS | Encounter Summary ---
:[address] [facility] Address [address] [place] [address] Care Team Providers Name Role Phone Unavailable Primary Care Provider Unavailable Encounter Details Date Type Department Care Team Description 09/25/2015 Hospital Encounter HX RST PRC JANINAFEKaye Barbosa, ADULT BIN WORKER, BAFFLE INSTALLER, R.N. [address] PRATHER, Evaristo [address] [place], [place] [address] (Wo rk) Social History Tobacco Use Types [...] do you attend muslim or Never 2021 oriental orthodox services? Do [...] Orthopedic Surgery Deon Herrera M.D. [address] [place], [place] [phone] (Wo rk) documented as of this encounter Visit Diagnoses Not on filedocumented in this encounter Additional Health Concerns Assessment Noted Time PHQ-9 Depression Total Score: 4 08/10/2015 9:06 AM CDT documented as of this encounter
--- OUTSIDE RECORDS SUMMARY | 2022-01-25 16:37 | XMS_ITS | Encounter Summary ---
:1955 Author Organization [facility] Address [address] [place] [address] Care Team Providers Name Role Phone Unavailable Primary Care Provider Unavailable Encounter Details Date Type Department Care Team Description 08/10/2015 - Hospital Encounter HX RST PAIN REHAB Kaye Fitzpatrick 08/17/2015 PSYCH OP L, HOST/HOSTESS RESTAURANT, UNIT MANAGER RN, R. N. [address] PRATHER, Evaristo [address] [place], [place] [address] (Wo rk) Social History [...] do you attend episcopalian or Never 2021 amish services? Do you [...] Orthopedic Surgery Deon Herrera M.D. [address] [place], [place] [phone] (Wo rk) documented as of this encounter Visit Diagnoses Not on filedocumented in this encounter Additional Health Concerns Assessment Noted Time PHQ-9 Depression Total Score: 4 08/10/2015 9:06 AM CDT documented as of this encounter
--- OUTSIDE RECORDS SUMMARY | 2022-01-25 16:37 | XMS_ITS | Encounter Summary ---
:1955 Author Organization [facility] Address [address] [place] [address] Care Team Providers Name Role Phone Unavailable Primary Care Provider Unavailable Encounter Details Date Type Department Care Team Description 08/10/2015 - Hospital Encounter HX RST PAIN REHAB Kaye Fitzpatrick 08/17/2015 PSYCH OP L, PRESENTATION TEAM MEMBER, GAS ADJUSTER, R. N. [address] PRATHER, Evaristo [address] [place], [place] [address] (Wo rk) Social History [...] do you attend islam or Never 2021 church services? Do you [...]
--- OUTSIDE RECORDS SUMMARY | 2022-01-25 16:37 | XMS_ITS | Encounter Summary ---
:1955 Author Organization [facility] Address [address] [place] [address] Care Team Providers Name Role Phone Unavailable Primary Care Provider Unavailable Encounter Details Date Type Department Care Team Description 08/11/2015 - Hospital Encounter HX RST PAIN REHAB Kaye Fitzpatrick 08/18/2015 PSYCH OP L, ENERGY CONSERVATION TECHNICIAN, DIRECTOR CAMP, R. N. [address] PRATHER, Evaristo [address] [place], [place] [address] (Wo rk) Social History [...] do you attend quaker or Never 2021 episcopalian services? Do you [...] Visit Orthopedic Surgery Deon Herrera M.D. [address] [place] [phone] (Wo rk) documented as of this encounter Visit Diagnoses Not on filedocumented in this encounter Additional Health Concerns Assessment Noted Time PHQ-9 Depression Total Score: 4 08/10/2015 9:06 AM CDT documented as of this encounter
--- OUTSIDE RECORDS SUMMARY | 2022-01-25 16:37 | XMS_ITS | Encounter Summary ---
:1955 Author Organization [facility] Address [address] [place] [address] Care Team Providers Name Role Phone Unavailable Primary Care Provider Unavailable Encounter Details Date Type Department Care Team Description 11/27/2015 Hospital Encounter HX RST PAIN REHAB PSYCH Lokesh Kelly, OP MANAGER ADOBE, OLIVER FILTER OPERATOR [address] [place] [phone] (Wo rk) Social History Tobacco Use Types [...] do you attend pentecostal or Never 2021 anglican services? Do you [...] Orthopedic Surgery Deon Herrera M.D. [address] [place], [place] [phone] (Wo rk) documented as of this encounter Visit Diagnoses Not on filedocumented in this encounter Additional Health Concerns Assessment Noted Time PHQ-9 Depression Total Score: 4 08/10/2015 9:06 AM CDT documented as of this encounter
--- OUTSIDE RECORDS SUMMARY | 2022-01-25 16:37 | XMS_ITS | Encounter Summary ---
:1955 Author Organization [facility] Address [address] [place] [address] Care Team Providers Name Role Phone Unavailable Primary Care Provider Unavailable Encounter Details Date Type Department Care Team Description 08/10/2015 - Hospital Encounter HX RST PAIN REHAB Keaton Hale 08/17/2015 PSYCH OP P, Ph.D., L.P. [address] [place] [phone] Social History Tobacco Use Types Packs/Day Years [...] do you attend sikh or Never 2021 shinto services? Do you [...] Orthopedic Surgery Deon Herrera M.D. [address] [place], [place] [phone] (Wo rk) documented as of this encounter Visit Diagnoses Not on filedocumented in this encounter Additional Health Concerns Assessment Noted Time PHQ-9 Depression Total Score: 4 08/10/2015 9:06 AM CDT documented as of this encounter
--- OUTSIDE RECORDS SUMMARY | 2022-01-25 16:37 | XMS_ITS | Encounter Summary ---
:1955 Author Organization [facility] Address [address] [place] [address] Care Team Providers Name Role Phone Unavailable Primary Care Provider Unavailable Encounter Details Date Type Department Care Team Description 12/18/2015 Hospital Encounter HX RST PAIN REHAB Kaye Fitzpatrick, PSYCH OP OPERATIONS COORDINATOR, BOLT MACHINE OPERATOR, R.N. [address] PRATHER, Evaristo [address] [place], [place] [address] (Wo rk) Social History Tobacco Use Types [...] do you attend congregational or Never 2021 muslim services? Do you [...] Orthopedic Surgery Deon Herrera M.D. [address] [place], [place] [phone] (Wo rk) documented as of this encounter Visit Diagnoses Not on filedocumented in this encounter Additional Health Concerns Assessment Noted Time PHQ-9 Depression Total Score: 4 08/10/2015 9:06 AM CDT documented as of this encounter
--- OUTSIDE RECORDS SUMMARY | 2022-01-25 16:37 | XMS_ITS | Encounter Summary ---
:1955 Author Organization [facility] Address [address] [place] [address] Care Team Providers Name Role Phone Unavailable Primary Care Provider Unavailable Encounter Details Date Type Department Care Team Description 11/27/2015 Hospital Encounter HX RST PRC FACFEE ADULT Robin, Lokesh rivera M, GEOSPATIAL TECHNICIAN, SLUBBER RUNNER [address] [place] [phone] (Wo rk) Social History Tobacco Use Types [...] do you attend yarsanism or Never 2021 gnosticist services? Do you [...]
--- OUTSIDE RECORDS SUMMARY | 2022-01-25 16:37 | XMS_ITS | Encounter Summary ---
:1955 Author Organization [facility] Address [address] [place] [address] Care Team Providers Name Role Phone Unavailable Primary Care Provider Unavailable Encounter Details Date Type Department Care Team Description 08/10/2015 - Hospital Encounter HX RST PAIN REHAB Kaye Fitzpatrick 08/17/2015 PSYCH OP L, AIRBORNE OPERATIONS MANAGER, MUFFLE WORKER, R. N. [address] [facility] [address] [facility] [address] PRATHER, Evaristo [address] [place], [place] [address] (Wo rk) Social History [...] do you attend confucianism or Never 2021 uatsdin services? Do you [...] Orthopedic Surgery Deon Herrera M.D. [address] [place], [place] [phone] (Wo rk) documented as of this encounter Visit Diagnoses Not on filedocumented in this encounter Additional Health Concerns Assessment Noted Time PHQ-9 Depression Total Score: 4 08/10/2015 9:06 AM CDT documented as of this encounter
--- OUTSIDE RECORDS SUMMARY | 2022-01-25 16:37 | XMS_ITS | Encounter Summary ---
:1955 Author Organization [facility] Address [address] [place] [address] Care Team Providers Name Role Phone Unavailable Primary Care Provider Unavailable Encounter Details Date Type Department Care Team Description 10/11/2015 Hospital Encounter HX [facility] FBCV LULR Guido Man M.D. [address] [place] [address], [address] [place] [address] (Wo rk) Social History Tobacco [...] do you attend orthodoxy or Never 2021 faith services? Do you [...] Man M.D. - 10/11/2015 8:17 AM CDT [id number] CHIEF COMPLAINT/REASON FOR VISIT Low back and [...] MAN MD On: 10/11/2015 06:13 PM Source: [facility] MHSDOLBEYNONRADSYS Document Id: [id number] documented in this encounter Procedure Notes Yobani [...] A preprocedure image was saved to the [email or web address]. Following this, the area was prepped with [...] MAN MD On: 10/11/2015 06:14 PM Source: [facility] MHSDOLBEYNONRADSYS Document Id: [id number] documented in this encounter Miscellaneous Notes Miscellaneous [...] Patient ( ) ( ) Call for Manager Bank ( ) Follow up on Results ( ) Other: PROVIDER: ( ) Call Physician ( ) Call Pharmacist ( ) Call Lab ( ) Other: Special Instructions: Comments: Source: [facility] POWERCHART Document Id: [id number] Miscellaneous - Yobani Man M.D. - 10/11/2015 8:48 AM CDT Ambulatory Discharge Medication List [address] [id number] Visit Information Name: YAZ CARO [facility] Number: [id number] Visit Date: 10/11/2015 08:48:11 Attending [...] MD Signed On:11-OCT-2015 08:47:46 Additional Information: Source: [facility] POWERCHART Document Id: [id number] Miscellaneous - Yobani Man M.D. - 10/11/2015 8:48 AM CDT Ambulatory Patient Summary [address] [id number] Visit Information Name: YAZ CARO [facility] Number: [id number] Current Date: 10/11/2015 08:48:12 Physicians [...] dont have one. Go to [email or web address] and click on Create Your Account. Then, follow the directions to complete the online form. Youll be asked for your [facility] number which you can find at the top of this document. Your Goals/Additional instructions: Source: [facility] POWERCHART Document Id: [id number] Miscellaneous - Kate Giraldo, L.P.N. - 10/11/2015 8:27 AM CDT Adult Bath Steward Intake/History Adult Bath Steward Intake/History Entered On: 10/11/2015 8:29 CDT Performed [...] GIRALDO LPN - 10/11/2015 8:27 CDT Source: [employer] Document Id: [id number] CDT!22 documented in this encounter Plan of Treatment Upcoming Encounters Date Type Specialty Care Team Description 02/04/2022 Office Visit Orthopedic Surgery Deon Herrera M.D. [address] [place] [phone] (Wo rk) documented as of this encounter Visit Diagnoses Not on filedocumented in this encounter Additional Health Concerns Assessment Noted Time PHQ-9 Depression Total Score: 4 08/10/2015 9:06 AM CDT documented as of this encounter
--- OUTSIDE RECORDS SUMMARY | 2022-01-25 16:37 | XMS_ITS | Encounter Summary ---
:1955 Author Organization [facility] Address [address] [place] [address] Care Team Providers Name Role Phone Unavailable [...] do you attend advent or Never 2021 worship services? Do you [...] Orthopedic Surgery Deon Herrera M.D. [address] [place] [phone] (Wo rk) documented as of this encounter Visit Diagnoses Not on filedocumented in this encounter Additional Health Concerns Assessment Noted Time PHQ-9 Depression Total Score: 4 08/10/2015 9:06 AM CDT documented as of this encounter
--- OUTSIDE RECORDS SUMMARY | 2022-01-25 16:37 | XMS_ITS | Encounter Summary ---
:1955 Author Organization [facility] Address [address] [place] [address] Care Team Providers Name Role Phone Unavailable [...] do you attend synagogue or Never 2021 synagogue services? Do you [...] Orthopedic Surgery Deon Herrera M.D. [address] [place] [phone] (Wo rk) documented as of this encounter Visit Diagnoses Not on filedocumented in this encounter Additional Health Concerns Assessment Noted Time PHQ-9 Depression Total Score: 4 08/10/2015 9:06 AM CDT documented as of this encounter
--- OUTSIDE RECORDS SUMMARY | 2022-01-25 16:37 | XMS_ITS | Encounter Summary ---
:1955 Author Organization [facility] Address [address] [place] [address] Care Team Providers Name Role Phone Unavailable Primary Care Provider Unavailable Encounter Details Date Type Department Care Team Description 08/10/2015 - Hospital Encounter HX RST PMR PT OT Denny Reddy 08/17/2015 L, P.T. [address] [place] [address] Social History Tobacco Use Types Packs/Day Years [...] do you attend congregation or Never 2021 episcopal services? Do you [...] Orthopedic Surgery Deon Herrera M.D. [address] [place], [place] [phone] (Wo rk) documented as of this encounter Visit Diagnoses Not on filedocumented in this encounter Additional Health Concerns Assessment Noted Time PHQ-9 Depression Total Score: 4 08/10/2015 9:06 AM CDT documented as of this encounter
--- OUTSIDE RECORDS SUMMARY | 2022-01-25 16:37 | XMS_ITS | Encounter Summary ---
:1955 Author Organization [facility] Address [address] [place] [address] Care Team Providers Name Role Phone Unavailable Primary Care Provider Unavailable Encounter Details Date Type Department Care Team Description 08/11/2015 - Hospital Encounter HX RST PAIN REHAB Zuly Frederick , 08/18/2015 PSYCH OP Ph.D., L.P. [address] [place] [address] Social History Tobacco Use Types [...] do you attend adventism or Never 2021 holiness services? Do you [...] Orthopedic Surgery Deon Herrera M.D. [address] [place], [place] [phone] (Wo rk) documented as of this encounter Visit Diagnoses Not on filedocumented in this encounter Additional Health Concerns Assessment Noted Time PHQ-9 Depression Total Score: 4 08/10/2015 9:06 AM CDT documented as of this encounter
--- OUTSIDE RECORDS SUMMARY | 2022-01-25 16:37 | XMS_ITS | Encounter Summary ---
:1955 Author Organization [facility] Address [address] [place] [address] Care Team Providers Name Role Phone Unavailable Primary Care Provider Unavailable Encounter Details Date Type Department Care Team Description 09/25/2015 Hospital Encounter HX RST PAIN REHAB Kaye Fitzpatrick, PSYCH OP BANANA EXPERT, STEREO OPERATOR, R.N. [address] PRATHER, Evaristo [address] [place], [place] [address] (Wo rk) Social History Tobacco Use Types [...] do you attend episcopal or Never 2021 yarsanism services? Do you [...] Orthopedic Surgery Deon Herrera M.D. [address] [place], [place] [phone] (Wo rk) documented as of this encounter Visit Diagnoses Not on filedocumented in this encounter Additional Health Concerns Assessment Noted Time PHQ-9 Depression Total Score: 4 08/10/2015 9:06 AM CDT documented as of this encounter
--- OUTSIDE RECORDS SUMMARY | 2022-01-25 16:37 | XMS_ITS | Encounter Summary ---
:1955 Author Organization [facility] Address [address] [place] [address] Care Team Providers Name Role Phone Unavailable Primary Care Provider Unavailable Encounter Details Date Type Department Care Team Description 08/28/2015 Hospital Encounter HX [facility] Guido Man M.D. [address] [place] [address], [address] [place] [address] (Wo rk) Social History Tobacco [...] do you attend nondenominational or Never 2021 gnosticist services? Do you [...] Man M.D. - 08/28/2015 2:42 PM CDT [id number] CHIEF COMPLAINT/REASON FOR VISIT Follow up low back and right hip pain. HISTORY OF PRESENT ILLNESS Ms. Caro returns today in followup. Since I last saw her, [facility] [place]. She completed this program August 10. Ms. [...] MAN MD On: 08/29/2015 05:37 PM Source: [facility] MHSDOLBEYNONRADSYS Document Id: [id number] documented in this encounter Miscellaneous Notes Miscellaneous - Yobani Man M.D. - 08/28/2015 3:45 PM CDT Ambulatory Patient Summary [address] [id number] Visit Information Name: NICOLASLucianoEL MATTSONINE [facility] Number: [id number] Current Date: 08/28/2015 15:45:27 Physicians Attending Provider: YOBANI MNA MD Primary Care Provider: PCP, ELSEWHERE EL [...] online form. Youll be asked for your [facility] number which you can find at the top of this document. Your Goals/Additional instructions: Source: [facility] POWERCHART Document Id: [id number] Miscellaneous - Yobani Man M.D. - 08/28/2015 3:45 PM CDT Ambulatory Discharge Medication List [address] [id number] Visit Information Name: YAZ CARO [facility] Number: [id number] Visit Date: 08/28/2015 [...] MD Signed On:28-AUG-2015 15:45:00 Additional Information: Source: [facility] POWERCHART Document Id: [id number] Miscellaneous - Kate Giraldo L.PCandyN. - 08/28/2015 3:04 PM CDT Adult Tail Edger Intake/History Adult Tail Edger Intake/History Entered On: 08/28/2015 15:05 CDT Performed [...] Information Given By : Patient Languages : Macedonian Is Patient Female and 13-50 no hysterectomy [...] GIRALDO LPN - 08/28/2015 15:04 CDT Source: [facility] POWERCHART Document Id: [id number]!22 documented in this encounter Plan of Treatment Upcoming Encounters Date Type Specialty Care Team Description 02/04/2022 Office Visit Orthopedic Surgery Deon Herrera M.D. [address] [place] [phone] (Wo rk) documented as of this encounter Visit Diagnoses Not on filedocumented in this encounter Additional Health Concerns Assessment Noted Time PHQ-9 Depression Total Score: 4 08/10/2015 9:06 AM CDT documented as of this encounter
--- OUTSIDE RECORDS SUMMARY | 2022-01-25 16:37 | XMS_ITS | Encounter Summary ---
:1955 Author Organization [facility] Address [address] [place] [address] Care Team Providers Name Role Phone Unavailable Primary Care Provider Unavailable Encounter Details Date Type Department Care Team Description 12/04/2015 Hospital Encounter HX [facility] LULR Guido Man M.D. [address] [place] [address], [address] [place] [address] (Wo rk) [...] do you attend sikh or Never 2021 anabaptism services? Do you [...] Man M.D. - 12/04/2015 3:06 PM CDT [id number] CHIEF COMPLAINT/REASON FOR VISIT Follow up low [...] for this which she will initiate in [place]. 4. Ms. Caro will contact me if [...] MAN MD On: 12/18/2015 02:22 PM Source: [facility] Document Id: [id number] documented in this encounter Miscellaneous Notes Miscellaneous - Priscilla Angel R.N. - 02/26/2016 9:40 AM CST refill request - Lyrica Document Contains Addenda Addendum by PRISCILLA ANGEL RN on February 27, 2016 13:53:12 LICENSED FUNERAL DIRECTOR called to the pharmacy. Addendum by YOBANI MAN MD on February 27, 2016 12:19:50 LICENSED FUNERAL DIRECTOR From: YOBANI MAN MD To: [facility] Ref[facility]; Sent: 02/27/2016 12:19:50 LICENSED FUNERAL DIRECTOR Subject: RE: refill request - Lyrica Please call. Thanks. Addendum by YOBANI MAN MD on February 27, 2016 12:19:41 LICENSED FUNERAL DIRECTOR Approved Order:pregabalin (Lyrica 150 mg oral capsule) 1 cap(s) PO 2xDay Qty: 60 cap(s) Refills: 5 Substitutions Allowed Print - [id number] Signed by YOBANI MAN MD 02/27/2016 12:19:35 From: PRISCILLA ANGEL RN ( [facility]ication Refill) To: YOBANI MAN MD; Sent: 02/26/2016 09:40:02 LICENSED FUNERAL DIRECTOR Subject: refill request - Lyrica On hold pending signature Order:pregabalin (Lyrica 150 mg oral capsule) 1 cap(s) PO 2xDay Qty: 60 cap(s) Refills: 5 Substitutions Allowed Print - [id number] Caller is: ( ) Patient ( ) Mother ( ) Father ( ) Spouse ( ) Daughter ( ) Son ( x ) Pharmacy ( ) Other: Provider: [facility] Name of Medications Needing Refill: Lyrica Last Refill Date: 01/29/16 Additional Information: Last / Future Appointment: 12/04/15 Disposition: ( x ) Send to Pharmacy ( ) Call to Pharmacy ( ) Patient will picket [employer] Script ( ) Mail Rxto Patient Source: [facility] POWERCHART Document Id: [id number] Miscellaneous - Yobani Man M.D. - 12/04/2015 3:51 PM CDT Ambulatory Patient Summary [address] [id number] Visit Information Name: KHRISMATTSONELYAZ [facility] Number: [id number] Current Date: 12/04/2015 15:51:07 [...] you dont have one. Go to [email or web address] and click on Create Your Account. Then, follow the directions to complete the online form. Youll be asked for your [facility] number which you can find at the top of this document. Your Goals/Additional instructions: Source: [facility] POWERCHART Document Id: [id number] Miscellaneous - Yobani Man M.D. - 12/04/2015 3:51 PM CDT Ambulatory Discharge Medication List [address] [id number] Visit Information Name: YAZ CARO [facility] Number: [id number] Visit Date: 12/04/2015 15:51:06 [...] MD Signed On:04-DEC-2015 15:50:37 Additional Information: Source: [facility] POWERCHART Document Id: [id number] documented in this encounter Plan of Treatment Upcoming Encounters Date Type Specialty Care Team Description 02/04/2022 Office Visit Orthopedic Surgery Deon Herrera M.D. [address] [place] [phone] (Wo rk) documented as of this encounter Visit Diagnoses Not on filedocumented in this encounter Additional Health Concerns Assessment Noted Time PHQ-9 Depression Total Score: 4 08/10/2015 9:06 AM CDT documented as of this encounter
--- OUTSIDE RECORDS SUMMARY | 2022-01-25 16:37 | XMS_ITS | Encounter Summary ---
:1955 Author Organization [facility] Address [address] [place] [address] Care Team Providers Name Role Phone Unavailable Primary Care Provider Unavailable Encounter Details Date Type Department Care Team Description 08/11/2015 - Hospital Encounter HX RST PAIN REHAB Kaye Fitzpatrick 08/18/2015 PSYCH OP L, LADIES LOCKER ROOM ATTENDANT, PUBLICIST, R. N. [address] PRATHER, Evaristo [address] [place], [place] [address] (Wo rk) Social History [...] do you attend zoroastrian or Never 2021 hindu services? Do you [...] Orthopedic Surgery Deon Herrera M.D. [address] [place], [place] [phone] (Wo rk) documented as of this encounter Visit Diagnoses Not on filedocumented in this encounter Additional Health Concerns Assessment Noted Time PHQ-9 Depression Total Score: 4 08/10/2015 9:06 AM CDT documented as of this encounter
--- OUTSIDE RECORDS SUMMARY | 2022-01-25 16:38 | XMS_ITS | Encounter Summary ---
:1955 Author Organization [facility] Address [address] [place] [address] Care Team Providers Name Role Phone Unavailable Primary Care Provider Unavailable Encounter Details Date Type Department Care Team Description 08/09/2015 - Hospital Encounter HX RST PAIN REHAB Kaye Fitzpatrick 08/16/2015 PSYCH OP L, YARD CLERK, PROTOTYPE SEWER, R. N. [address] PRATHER, Evaristo [address] [place], [place] [address] (Wo rk) Social History [...] do you attend buddhism or Never 2021 jehovah's witness services? Do [...] Orthopedic Surgery Deon Herrera M.D. [address] [place], [place] [phone] (Wo rk) documented as of this encounter Visit Diagnoses Not on filedocumented in this encounter Additional Health Concerns Assessment Noted Time PHQ-9 Depression Total Score: 6 07/20/2015 8:59 AM CDT documented as of this encounter
--- OUTSIDE RECORDS SUMMARY | 2022-01-25 16:38 | XMS_ITS | Encounter Summary ---
:1955 Author Organization [facility] Address [address] [place] [address] Care Team Providers Name Role Phone Unavailable [...] do you attend voodoo or Never 2021 jew services? Do you [...] Orthopedic Surgery Deon Herrera M.D. [address] [place] [phone] (Wo rk) documented as of this encounter Visit Diagnoses Not on filedocumented in this encounter Additional Health Concerns Assessment Noted Time PHQ-9 Depression Total Score: 6 07/20/2015 8:59 AM CDT documented as of this encounter
--- OUTSIDE RECORDS SUMMARY | 2022-01-25 16:38 | XMS_ITS | Encounter Summary ---
:1955 Author Organization [facility] Address [address] [place] [address] Care Team Providers Name Role Phone Unavailable [...] do you attend congregational or Never 2021 amish services? Do you [...] Orthopedic Surgery Deon Herrera M.D. [address] [place] [phone] (Wo rk) documented as of this encounter Visit Diagnoses Not on filedocumented in this encounter Additional Health Concerns Assessment Noted Time PHQ-9 Depression Total Score: 6 07/20/2015 8:59 AM CDT documented as of this encounter
--- OUTSIDE RECORDS SUMMARY | 2022-01-25 16:38 | XMS_ITS | Encounter Summary ---
:1955 Author Organization [facility] Address [address] [place] [address] Care Team Providers Name Role Phone Unavailable Primary Care Provider Unavailable Encounter Details Date Type Department Care Team Description 08/03/2015 - Hospital Encounter HX RST PAIN REHAB Neeta Fitzpatrickzabeth 08/10/2015 PSYCH OP L, EMAIL MARKETING SPECIALIST, DISC RECORDIST, R. N. [address] PRATHER, Evaristo [address] [place], [place] [address] (Wo rk) Social History [...] do you attend restorationist or Never 2021 congregation services? Do you [...] Orthopedic Surgery Deon Herrera M.D. [address] [place], [place] [phone] (Wo rk) documented as of this encounter Visit Diagnoses Not on filedocumented in this encounter Additional Health Concerns Assessment Noted Time PHQ-9 Depression Total Score: 6 07/20/2015 8:59 AM CDT documented as of this encounter
--- OUTSIDE RECORDS SUMMARY | 2022-01-25 16:38 | XMS_ITS | Encounter Summary ---
:1955 Author Organization [facility] Address [address] [place] [address] Care Team Providers Name Role Phone Unavailable Primary Care Provider Unavailable Encounter Details Date Type Department Care Team Description 08/04/2015 - Hospital Encounter HX RST PAIN REHAB Kaye Fitzpatrick 08/11/2015 PSYCH OP L, PSYCHIATRIC CNS, HISTORIC SITE ADMINISTRATOR, R. N. [address] PRATHER, Evaristo [address] [place], [place] [address] (Wo rk) Social History [...] do you attend spiritism or Never 2021 yarsanism services? Do you [...] Surgery Deon Herrera M.D. [address] [place], [place] [phone] (Wo rk) documented as of this encounter Visit Diagnoses Not on filedocumented in this encounter Additional Health Concerns Assessment Noted Time PHQ-9 Depression Total Score: 6 07/20/2015 8:59 AM CDT documented as of this encounter
--- OUTSIDE RECORDS SUMMARY | 2022-01-25 16:38 | XMS_ITS | Encounter Summary ---
:1955 Author Organization [facility] Address [address] [place] [address] Care Team Providers Name Role Phone Unavailable Primary Care Provider Unavailable Encounter Details Date Type Department Care Team Description 08/09/2015 - Hospital Encounter HX RST PAIN REHAB Vipul Kelly, 08/16/2015 PSYCH OP BRIM RAISER, TRAFFIC SIGN ERECTION SUPERVISOR [address] [place] [address] Social History Tobacco Use Types Packs/Day Years [...] do you attend denominational or Never 2021 mormonism services? Do you [...] Orthopedic Surgery Deon Herrera M.D. [address] [place], [place] [phone] (Wo rk) documented as of this encounter Visit Diagnoses Not on filedocumented in this encounter Additional Health Concerns Assessment Noted Time PHQ-9 Depression Total Score: 6 07/20/2015 8:59 AM CDT documented as of this encounter
--- OUTSIDE RECORDS SUMMARY | 2022-01-25 16:38 | XMS_ITS | Encounter Summary ---
:1955 Author Organization [facility] Address [address] [place] [address] Care Team Providers Name Role Phone Unavailable Primary Care Provider Unavailable Encounter Details Date Type Department Care Team Description 08/04/2015 - Hospital Encounter HX RST PAIN REHAB Vipul Kelly, 08/11/2015 PSYCH OP MACHINE OPERATOR FARMWORKER, RECORDS ANALYST [address] [place] [address] Social History Tobacco Use Types Packs/Day Years [...] do you attend buddhism or Never 2021 adventism services? Do you [...] Orthopedic Surgery Deon Herrera M.D. [address] [place], [place] [phone] (Wo rk) documented as of this encounter Visit Diagnoses Not on filedocumented in this encounter Additional Health Concerns Assessment Noted Time PHQ-9 Depression Total Score: 6 07/20/2015 8:59 AM CDT documented as of this encounter
--- OUTSIDE RECORDS SUMMARY | 2022-01-25 16:38 | XMS_ITS | Encounter Summary ---
:1955 Author Organization [facility] Address [address] [place] [address] Care Team Providers Name Role Phone Unavailable Primary Care Provider Unavailable Encounter Details Date Type Department Care Team Description 08/09/2015 - Hospital Encounter HX RST PMR PT OT Song Steel , 08/16/2015 P.T.A. [address] [place] [address] Social History Tobacco Use Types Packs/Day Years [...] do you attend scientology or Never 2021 anabaptism services? Do you [...] Orthopedic Surgery Deon Herrera M.D. [address] [place], [place] [phone] (Wo rk) documented as of this encounter Visit Diagnoses Not on filedocumented in this encounter Additional Health Concerns Assessment Noted Time PHQ-9 Depression Total Score: 6 07/20/2015 8:59 AM CDT documented as of this encounter
--- OUTSIDE RECORDS SUMMARY | 2022-01-25 16:38 | XMS_ITS | Encounter Summary ---
:1955 Author Organization [facility] Address [address] [place] [address] Care Team Providers Name Role Phone Unavailable Primary Care Provider Unavailable Encounter Details Date Type Department Care Team Description 08/04/2015 - Hospital Encounter HX RST PAIN REHAB Antonio Castro 08/11/2015 PSYCH OP J, Ph.D., L.P. [address] [place] [phone] Social History Tobacco Use Types Packs/Day [...] do you attend zoroastrianism or Never 2021 oriental orthodox services? Do [...] Surgery Deon Herrera M.D. [address] [place], [place] [phone] (Wo rk) documented as of this encounter Visit Diagnoses Not on filedocumented in this encounter Additional Health Concerns Assessment Noted Time PHQ-9 Depression Total Score: 6 07/20/2015 8:59 AM CDT documented as of this encounter
--- OUTSIDE RECORDS SUMMARY | 2022-01-25 16:38 | XMS_ITS | Encounter Summary ---
:1955 Author Organization [facility] Address [address] [place] [address] Care Team Providers Name Role Phone Unavailable Primary Care Provider Unavailable Encounter Details Date Type Department Care Team Description 08/09/2015 - Hospital Encounter HX RST PAIN REHAB Kaye Fitzpatrick 08/16/2015 PSYCH OP L, THERMOSPRAY OPERATOR, TOBACCO BLENDER, R. N. [address] PRATHER, Evaristo [address] [place], [place] [address] (Wo rk) Social History [...] do you attend buddhism or Never 2021 mormonism services? Do you [...] Orthopedic Surgery Deon Herrera M.D. [address] [place], [place] [phone] (Wo rk) documented as of this encounter Visit Diagnoses Not on filedocumented in this encounter Additional Health Concerns Assessment Noted Time PHQ-9 Depression Total Score: 6 07/20/2015 8:59 AM CDT documented as of this encounter
--- OUTSIDE RECORDS SUMMARY | 2022-01-25 16:38 | XMS_ITS | Encounter Summary ---
:1955 Author Organization [facility] Address [address] [place] [address] Care Team Providers Name Role Phone Unavailable Primary Care Provider Unavailable Encounter Details Date Type Department Care Team Description 08/04/2015 - Hospital Encounter HX RST PMR PT OT Song Steel , 08/11/2015 P.T.A. [address] [place] [address] Social History Tobacco Use Types Packs/Day Years [...] do you attend orthodoxy or Never 2021 latter day services? Do [...] Orthopedic Surgery Deon Herrera M.D. [address] [place], [place] [phone] (Wo rk) documented as of this encounter Visit Diagnoses Not on filedocumented in this encounter Additional Health Concerns Assessment Noted Time PHQ-9 Depression Total Score: 6 07/20/2015 8:59 AM CDT documented as of this encounter
--- OUTSIDE RECORDS SUMMARY | 2022-01-25 16:38 | XMS_ITS | Encounter Summary ---
:1955 Author Organization [facility] Address [address] [place] [address] Care Team Providers Name Role Phone Unavailable [...] do you attend restoration or Never 2021 yazidism services? Do you [...] Visit Orthopedic Surgery Deon Herrera M.D. [address] [place] [phone] (Wo rk) documented as of this encounter Visit Diagnoses Not on filedocumented in this encounter Additional Health Concerns Assessment Noted Time PHQ-9 Depression Total Score: 6 07/20/2015 8:59 AM CDT documented as of this encounter
--- OUTSIDE RECORDS SUMMARY | 2022-01-25 16:38 | XMS_ITS | Encounter Summary ---
:1955 Author Organization [facility] Address [address] [place] [address] Care Team Providers Name Role Phone Unavailable Primary Care Provider Unavailable Encounter Details Date Type Department Care Team Description 08/04/2015 - Hospital Encounter HX RST PMR PT OT Clare Clay , 08/11/2015 O.T. [address] [facility] [address] [place], [place] [address] (Wo rk) Social History [...] do you attend caodaism or Never 2021 methodist services? Do you [...] Orthopedic Surgery Deon Herrera M.D. [address] [place], [place] [phone] (Wo rk) documented as of this encounter Visit Diagnoses Not on filedocumented in this encounter Additional Health Concerns Assessment Noted Time PHQ-9 Depression Total Score: 6 07/20/2015 8:59 AM CDT documented as of this encounter
--- OUTSIDE RECORDS SUMMARY | 2022-01-25 16:38 | XMS_ITS | Encounter Summary ---
:1955 Author Organization [facility] Address [address] [place] [address] Care Team Providers Name Role Phone Unavailable Primary Care Provider Unavailable Encounter Details Date Type Department Care Team Description 08/08/2015 - Hospital Encounter HX RST PAIN REHAB Vipul Kelly, 08/15/2015 PSYCH OP SUPERVISOR TELEPHONE ANSWERING SERVICE, [employer] FIELD COORDINATOR [address] [place] [address] Social History Tobacco Use Types Packs/Day Years [...] do you attend hinduism or Never 2021 pentecostal services? Do you [...] Orthopedic Surgery Deon Herrera M.D. [address] [place], [place] [phone] (Wo rk) documented as of this encounter Visit Diagnoses Not on filedocumented in this encounter Additional Health Concerns Assessment Noted Time PHQ-9 Depression Total Score: 6 07/20/2015 8:59 AM CDT documented as of this encounter
--- OUTSIDE RECORDS SUMMARY | 2022-01-25 16:38 | XMS_ITS | Encounter Summary ---
:1955 Author Organization [facility] Address [address] [place] [address] Care Team Providers Name Role Phone Unavailable Primary Care Provider Unavailable Encounter Details Date Type Department Care Team Description 08/08/2015 - Hospital Encounter HX RST PMR PT OT Denny Reddy 08/15/2015 L, P.T. [address] [place] [address] Social History Tobacco Use Types Packs/Day Years [...] do you attend jain or Never 2021 shinto services? Do you [...] Orthopedic Surgery Deon Herrera M.D. [address] [place], [place] [phone] (Wo rk) documented as of this encounter Visit Diagnoses Not on filedocumented in this encounter Additional Health Concerns Assessment Noted Time PHQ-9 Depression Total Score: 6 07/20/2015 8:59 AM CDT documented as of this encounter
--- OUTSIDE RECORDS SUMMARY | 2022-01-25 16:38 | XMS_ITS | Encounter Summary ---
:1955 Author Organization [facility] Address [address] [place] [address] Care Team Providers Name Role Phone Unavailable Primary Care Provider Unavailable Encounter Details Date Type Department Care Team Description 08/09/2015 - Hospital Encounter HX RST PAIN REHAB Kaye Fitzpatrick 08/16/2015 PSYCH OP L, CARPENTRY TEACHER, PROJECT DRILLING ENGINEER, R. N. [address] PRATHER, Evaristo [address] [place], [place] [address] (Wo rk) Social History [...] do you attend mormonism or Never 2021 bahai services? Do you [...] Orthopedic Surgery Deon Herrera M.D. [address] [place], [place] [phone] (Wo rk) documented as of this encounter Visit Diagnoses Not on filedocumented in this encounter Additional Health Concerns Assessment Noted Time PHQ-9 Depression Total Score: 6 07/20/2015 8:59 AM CDT documented as of this encounter
--- OUTSIDE RECORDS SUMMARY | 2022-01-25 16:38 | XMS_ITS | Encounter Summary ---
:1955 Author Organization [facility] Address [address] [place] [address] Care Team Providers Name Role Phone Unavailable Primary Care Provider Unavailable Encounter Details Date Type Department Care Team Description 08/08/2015 - Hospital Encounter HX RST PAIN REHAB Zuly Frederick , 08/15/2015 PSYCH OP Ph.D., L.P. [address] [place] [address] Social History Tobacco Use Types [...] do you attend methodist or Never 2021 spiritism services? Do you [...] Orthopedic Surgery Deon Herrera M.D. [address] [place], [place] [phone] (Wo rk) documented as of this encounter Visit Diagnoses Not on filedocumented in this encounter Additional Health Concerns Assessment Noted Time PHQ-9 Depression Total Score: 6 07/20/2015 8:59 AM CDT documented as of this encounter
--- OUTSIDE RECORDS SUMMARY | 2022-01-25 16:38 | XMS_ITS | Encounter Summary ---
:1955 Author Organization [facility] Address [address] [place] [address] Care Team Providers Name Role Phone Unavailable Primary Care Provider Unavailable Encounter Details Date Type Department Care Team Description 08/08/2015 - Hospital Encounter HX RST PAIN REHAB Vipul Kelly, 08/15/2015 PSYCH OP HIDE WORKER, VOUCHER EXAMINER [address] [place] [address] Social History Tobacco Use Types Packs/Day Years [...] do you attend latter-day or Never 2021 jainism services? Do you [...] Orthopedic Surgery Deon Herrera M.D. [address] [place], [place] [phone] (Wo rk) documented as of this encounter Visit Diagnoses Not on filedocumented in this encounter Additional Health Concerns Assessment Noted Time PHQ-9 Depression Total Score: 6 07/20/2015 8:59 AM CDT documented as of this encounter
--- OUTSIDE RECORDS SUMMARY | 2022-01-25 16:38 | XMS_ITS | Encounter Summary ---
:1955 Author Organization [facility] Address [address] [place] [address] Care Team Providers Name Role Phone Unavailable Primary Care Provider Unavailable Encounter Details Date Type Department Care Team Description 08/08/2015 - Hospital Encounter HX RST PMR PT OT Song Steel , 08/15/2015 P.T.A. [address] [place] [address] Social History Tobacco Use Types Packs/Day Years [...] Orthopedic Surgery Deon Herrera M.D. [address] [place], [place] [phone] (Wo rk) documented as of this encounter Visit Diagnoses Not on filedocumented in this encounter Additional Health Concerns Assessment Noted Time PHQ-9 Depression Total Score: 6 07/20/2015 8:59 AM CDT documented as of this encounter
--- OUTSIDE RECORDS SUMMARY | 2022-01-25 16:38 | XMS_ITS | Encounter Summary ---
:1955 Author Organization [facility] Address [address] [place] [address] Care Team Providers Name Role Phone Unavailable Primary Care Provider Unavailable Encounter Details Date Type Department Care Team Description 08/04/2015 - Hospital Encounter HX RST PAIN REHAB Kaye Fitzpatrick 08/11/2015 PSYCH OP L, TREATING ENGINEER, BUILDINGS AND GROUNDS DIRECTOR, R. N. [address] PRATHER, Evaristo 201 [place], [place] [address] (Wo rk) Social History [...] do you attend alevism or Never 2021 holiness services? Do you [...] Orthopedic Surgery Deon Herrera M.D. [address] [place], [place] [phone] (Wo rk) documented as of this encounter Visit Diagnoses Not on filedocumented in this encounter Additional Health Concerns Assessment Noted Time PHQ-9 Depression Total Score: 6 07/20/2015 8:59 AM CDT documented as of this encounter
--- OUTSIDE RECORDS SUMMARY | 2022-01-25 16:38 | XMS_ITS | Encounter Summary ---
:1955 Author Organization [facility] Address [address] [place] [address] Care Team Providers Name Role Phone Unavailable Primary Care Provider Unavailable Encounter Details Date Type Department Care Team Description 08/09/2015 - Hospital Encounter HX RST PAIN REHAB Zuly Frederick , 08/16/2015 PSYCH OP Ph.D., L.P. [address] [place] [address] Social History Tobacco Use Types [...] do you attend caodaism or Never 2021 confucianism services? Do you [...] Orthopedic Surgery Deon Herrera M.D. [address] [place], [place] [phone] (Wo rk) documented as of this encounter Visit Diagnoses Not on filedocumented in this encounter Additional Health Concerns Assessment Noted Time PHQ-9 Depression Total Score: 6 07/20/2015 8:59 AM CDT documented as of this encounter
--- OUTSIDE RECORDS SUMMARY | 2022-01-25 16:38 | XMS_ITS | Encounter Summary ---
:1955 Author Organization [facility] Address [address] [place] [address] Care Team Providers Name Role Phone Unavailable Primary Care Provider Unavailable Encounter Details Date Type Department Care Team Description 08/08/2015 - Hospital Encounter HX RST PAIN REHAB Indy Ramos, 08/15/2015 PSYCH OP HUNTER SKIN DIVER, BOILER TENDER, D.N.P., M.S.N. [address] [place] [phone] Social History Tobacco Use Types Packs/Day Years [...] do you attend restorationism or Never 2021 muslim services? Do you [...] Orthopedic Surgery Deon Herrera M.D. [address] [place] [phone] (Wo rk) documented as of this encounter Visit Diagnoses Not on filedocumented in this encounter Additional Health Concerns Assessment Noted Time PHQ-9 Depression Total Score: 6 07/20/2015 8:59 AM CDT documented as of this encounter
--- OUTSIDE RECORDS SUMMARY | 2022-01-25 16:38 | XMS_ITS | Encounter Summary ---
:1955 Author Organization [facility] Address [address] [place] [address] Care Team Providers Name Role Phone Unavailable Primary Care Provider Unavailable Encounter Details Date Type Department Care Team Description 08/08/2015 - Hospital Encounter HX RST PAIN REHAB Jesse, 08/15/2015 PSYCH OP Colleen Polk M.D., Ph.D. [address] [place] [phone] Social History Tobacco Use Types Packs/Day Years [...] do you attend faith or Never 2021 mandaeism services? Do you [...] Surgery Deon Herrera M.D. [address] [place], [place] [phone] (Wo rk) documented as of this encounter Visit Diagnoses Not on filedocumented in this encounter Additional Health Concerns Assessment Noted Time PHQ-9 Depression Total Score: 6 07/20/2015 8:59 AM CDT documented as of this encounter
--- OUTSIDE RECORDS SUMMARY | 2022-01-25 16:39 | XMS_ITS | Encounter Summary ---
:1955 Author Organization [facility] Address [address] [place] [address] Care Team Providers Name Role Phone Unavailable Primary Care Provider Unavailable Encounter Details Date Type Department Care Team Description 08/02/2015 - Hospital Encounter HX RST PAIN REHAB Keaton Hale 08/09/2015 PSYCH OP P, Ph.D., L.P. [address] [place] [phone] Social History Tobacco Use Types Packs/Day Years [...] do you attend restoration or Never 2021 oriental orthodox services? Do [...] Orthopedic Surgery Deon Herrera M.D. [address] [place], [place] [phone] (Wo rk) documented as of this encounter Visit Diagnoses Not on filedocumented in this encounter Additional Health Concerns Assessment Noted Time PHQ-9 Depression Total Score: 6 07/20/2015 8:59 AM CDT documented as of this encounter
--- OUTSIDE RECORDS SUMMARY | 2022-01-25 16:39 | XMS_ITS | Encounter Summary ---
:1955 Author Organization [facility] Address [address] [place] [address] Care Team Providers Name Role Phone Unavailable Primary Care Provider Unavailable Encounter Details Date Type Department Care Team Description 08/01/2015 - Hospital Encounter HX RST PAIN REHAB Kaye Fitzpatrick 08/08/2015 PSYCH OP L, BUSINESS INTELLIGENCE REPORTING ANALYST, HVAC SERVICES PROFESSIONAL, R. N. [address] PRATHER, Evaristo [address] [place], [place] [address] (Wo rk) Social History [...] do you attend muslim or Never 2021 christianity services? Do you [...] Orthopedic Surgery Deon Herrera M.D. [address] [place], [place] [phone] (Wo rk) documented as of this encounter Visit Diagnoses Not on filedocumented in this encounter Additional Health Concerns Assessment Noted Time PHQ-9 Depression Total Score: 6 07/20/2015 8:59 AM CDT documented as of this encounter
--- OUTSIDE RECORDS SUMMARY | 2022-01-25 16:39 | XMS_ITS | Encounter Summary ---
:1955 Author Organization [facility] Address [address] [place] [address] Care Team Providers Name Role Phone Unavailable Primary Care Provider Unavailable Encounter Details Date Type Department Care Team Description 08/01/2015 - Hospital Encounter HX RST PMR PT OT Song Steel , 08/08/2015 P.T.A. [address] [place] [address] Social History Tobacco Use Types Packs/Day Years [...] do you attend jainism or Never 2021 uatsdin services? Do you [...] Orthopedic Surgery Deon Herrera M.D. [address] [place], [place] [phone] (Wo rk) documented as of this encounter Visit Diagnoses Not on filedocumented in this encounter Additional Health Concerns Assessment Noted Time PHQ-9 Depression Total Score: 6 07/20/2015 8:59 AM CDT documented as of this encounter
--- OUTSIDE RECORDS SUMMARY | 2022-01-25 16:39 | XMS_ITS | Encounter Summary ---
:1955 Author Organization [facility] Address [address] [place] [address] Care Team Providers Name Role Phone Unavailable [...] do you attend holiness or Never 2021 anabaptism services? Do you [...] Orthopedic Surgery Deon Herrera M.D. [address] [place] [phone] (Wo rk) documented as of this encounter Visit Diagnoses Not on filedocumented in this encounter Additional Health Concerns Assessment Noted Time PHQ-9 Depression Total Score: 6 07/20/2015 8:59 AM CDT documented as of this encounter
--- OUTSIDE RECORDS SUMMARY | 2022-01-25 16:39 | XMS_ITS | Encounter Summary ---
:1955 Author Organization [facility] Address [address] [place] [address] Care Team Providers Name Role Phone Unavailable Primary Care Provider Unavailable Encounter Details Date Type Department Care Team Description 08/01/2015 - Hospital Encounter HX RST PAIN REHAB Kaye Fitzpatrick 08/08/2015 PSYCH OP L, METAL SHAPING MACHINE OPERATOR, TELEHEALTH CASE MANAGER, R. N. [address] PRATHER, Evaristo [address] [place], [place] [address] (Wo rk) Social History [...] do you attend rastafari or Never 2021 orthodox services? Do you [...] Orthopedic Surgery Deon Herrera M.D. [address] [place], [place] [phone] (Wo rk) documented as of this encounter Visit Diagnoses Not on filedocumented in this encounter Additional Health Concerns Assessment Noted Time PHQ-9 Depression Total Score: 6 07/20/2015 8:59 AM CDT documented as of this encounter
--- OUTSIDE RECORDS SUMMARY | 2022-01-25 16:39 | XMS_ITS | Encounter Summary ---
:1955 Author Organization [facility] Address [address] [place] [address] Care Team Providers Name Role Phone Unavailable Primary Care Provider Unavailable Encounter Details Date Type Department Care Team Description 08/02/2015 - Hospital Encounter HX RST PAIN REHAB Kaye Fitzpatrick 08/09/2015 PSYCH OP L, SEALANT MIXER, TEAM OTR TRUCK DRIVER, R. N. [address] PRATHER, Evaristo [address] [place], [place] [address] (Wo rk) Social History [...] do you attend religion or Never 2021 jain services? Do you [...] Orthopedic Surgery Deon Herrera M.D. [address] [place], [place] [phone] (Wo rk) documented as of this encounter Visit Diagnoses Not on filedocumented in this encounter Additional Health Concerns Assessment Noted Time PHQ-9 Depression Total Score: 6 07/20/2015 8:59 AM CDT documented as of this encounter
--- OUTSIDE RECORDS SUMMARY | 2022-01-25 16:39 | XMS_ITS | Encounter Summary ---
:1955 Author Organization [facility] Address [address] [place] [address] Care Team Providers Name Role Phone Unavailable Primary Care Provider Unavailable Encounter Details Date Type Department Care Team Description 08/03/2015 - Hospital Encounter HX RST PAIN REHAB Keaton Hale 08/10/2015 PSYCH OP P, Ph.D., L.P. [address] [place] [phone] Social History Tobacco Use Types Packs/Day Years [...] do you attend jewish or Never 2021 yarsanism services? Do you [...] Orthopedic Surgery Deon Herrera M.D. [address] [place], [place] [phone] (Wo rk) documented as of this encounter Visit Diagnoses Not on filedocumented in this encounter Additional Health Concerns Assessment Noted Time PHQ-9 Depression Total Score: 6 07/20/2015 8:59 AM CDT documented as of this encounter
--- OUTSIDE RECORDS SUMMARY | 2022-01-25 16:39 | XMS_ITS | Encounter Summary ---
:1955 Author Organization [facility] Address [address] [place] [address] Care Team Providers Name Role Phone Unavailable Primary Care Provider Unavailable Encounter Details Date Type Department Care Team Description 08/03/2015 - Hospital Encounter HX RST PAIN REHAB Neeta Fitzpatrickzabeth 08/10/2015 PSYCH OP L, IRRIGATION SYSTEM INSTALLER, REVIEW SCHEDULING COORDINATOR, R. N. [address] PRATHER, Evaristo [address] [place], [place] [address] (Wo rk) Social History [...] do you attend taoist or Never 2021 orthodoxy services? Do you [...] Orthopedic Surgery Deon Herrera M.D. [address] [place], [place] [phone] (Wo rk) documented as of this encounter Visit Diagnoses Not on filedocumented in this encounter Additional Health Concerns Assessment Noted Time PHQ-9 Depression Total Score: 6 07/20/2015 8:59 AM CDT documented as of this encounter
--- OUTSIDE RECORDS SUMMARY | 2022-01-25 16:39 | XMS_ITS | Encounter Summary ---
:1955 Author Organization [facility] Address [address] [place] [address] Care Team Providers Name Role Phone Unavailable Primary Care Provider Unavailable Encounter Details Date Type Department Care Team Description 07/31/2015 - Hospital Encounter HX RST PAIN REHAB Neeta Fitzpatrickzabeth 08/07/2015 PSYCH OP L, CHARGING CRANE OPERATOR, THERMOMETER MAKER, R. N. [address] [facility] [address] PRATHER, Evaristo 201 [place], [place] [address] (Wo rk) Social History [...] do you attend voodoo or Never 2021 voodoo services? Do you [...] Orthopedic Surgery Deon Herrera M.D. [address] [place], [place] [phone] (Wo rk) documented as of this encounter Visit Diagnoses Not on filedocumented in this encounter Additional Health Concerns Assessment Noted Time PHQ-9 Depression Total Score: 6 07/20/2015 8:59 AM CDT documented as of this encounter
--- OUTSIDE RECORDS SUMMARY | 2022-01-25 16:39 | XMS_ITS | Encounter Summary ---
:1955 Author Organization [facility] Address [address] [place] [address] Care Team Providers Name Role Phone Unavailable Primary Care Provider Unavailable Encounter Details Date Type Department Care Team Description 08/02/2015 - Hospital Encounter HX RST PAIN REHAB Kaye Fitzpatrick 08/09/2015 PSYCH OP L, MONITOR AND STORAGE BIN TENDER, NETWORK APPLICATIONS SPECIALIST, R. N. [address] PRATHER, Evaristo 201 [place], [place] [address] (Wo rk) Social History [...] do you attend scientology or Never 2021 religion services? Do you [...] Orthopedic Surgery Deon Herrera M.D. [address] [place], [place] [phone] (Wo rk) documented as of this encounter Visit Diagnoses Not on filedocumented in this encounter Additional Health Concerns Assessment Noted Time PHQ-9 Depression Total Score: 6 07/20/2015 8:59 AM CDT documented as of this encounter
--- OUTSIDE RECORDS SUMMARY | 2022-01-25 16:39 | XMS_ITS | Encounter Summary ---
:1955 Author Organization [facility] Address [address] [place] [address] Care Team Providers Name Role Phone Unavailable Primary Care Provider Unavailable Encounter Details Date Type Department Care Team Description 08/03/2015 - Hospital Encounter HX RST PAIN REHAB Neeta Fitzpatrickzabeth 08/10/2015 PSYCH OP L, BIG DATA SOFTWARE ENGINEER, LINES TENDER, R. N. [address] PRATHER, Evaristo [address] [place], [place] [address] (Wo rk) Social History [...] do you attend orthodoxy or Never 2021 mu-ism services? Do you [...] Surgery Deon Herrera M.D. [address] [place], [place] [phone] (Wo rk) documented as of this encounter Visit Diagnoses Not on filedocumented in this encounter Additional Health Concerns Assessment Noted Time PHQ-9 Depression Total Score: 6 07/20/2015 8:59 AM CDT documented as of this encounter
--- OUTSIDE RECORDS SUMMARY | 2022-01-25 16:39 | XMS_ITS | Encounter Summary ---
:1955 Author Organization [facility] Address [address] [place] [address] Care Team Providers Name Role Phone Unavailable Primary Care Provider Unavailable Encounter Details Date Type Department Care Team Description 08/01/2015 - Hospital Encounter HX RST PAIN REHAB Keaton Hale 08/08/2015 PSYCH OP P, Ph.D., L.P. [address] [place] [phone] Social History Tobacco Use Types Packs/Day Years [...] do you attend restorationism or Never 2021 sabianist services? Do you [...]
--- OUTSIDE RECORDS SUMMARY | 2022-01-25 16:39 | XMS_ITS | Encounter Summary ---
:1955 Author Organization [facility] Address [address] [place] [address] Care Team Providers Name Role Phone Unavailable Primary Care Provider Unavailable Encounter Details Date Type Department Care Team Description 08/02/2015 - Hospital Encounter HX RST PAIN REHAB Kaye Fitzpatrick 08/09/2015 PSYCH OP L, LEASE ADMINISTRATION SUPERVISOR, BENCH TECHNICIAN, R. N. [address] [facility] [address] [address] PRATHER, Evaristo 201 [place], [place] [address] (Wo rk) Social History [...] do you attend advent or Never 2021 buddhist services? Do you [...] Orthopedic Surgery Deon Herrera M.D. [address] [place], [place] [phone] (Wo rk) documented as of this encounter Visit Diagnoses Not on filedocumented in this encounter Additional Health Concerns Assessment Noted Time PHQ-9 Depression Total Score: 6 07/20/2015 8:59 AM CDT documented as of this encounter
--- OUTSIDE RECORDS SUMMARY | 2022-01-25 16:39 | XMS_ITS | Encounter Summary ---
:1955 Author Organization [facility] Address [address] [place] [address] Care Team Providers Name Role Phone Unavailable Primary Care Provider Unavailable Encounter Details Date Type Department Care Team Description 08/02/2015 - Hospital Encounter HX RST PMR PT OT Denny Reddy 08/09/2015 L, P.T. [address] [place] [address] Social History Tobacco Use Types Packs/Day Years [...] Orthopedic Surgery Deon Herrera M.D. [address] [place], [place] [phone] (Wo rk) documented as of this encounter Visit Diagnoses Not on filedocumented in this encounter Additional Health Concerns Assessment Noted Time PHQ-9 Depression Total Score: 6 07/20/2015 8:59 AM CDT documented as of this encounter
--- OUTSIDE RECORDS SUMMARY | 2022-01-25 16:39 | XMS_ITS | Encounter Summary ---
:1955 Author Organization [facility] Address [address] [place] [address] Care Team Providers Name Role Phone Unavailable Primary Care Provider Unavailable Encounter Details Date Type Department Care Team Description 08/02/2015 - Hospital Encounter HX RST PAIN REHAB Zuly Frederick , 08/09/2015 PSYCH OP Ph.D., L.P. [address] [place] [address] Social History Tobacco Use Types [...] do you attend taoism or Never 2021 moravian services? Do you [...] Orthopedic Surgery Deon Herrera M.D. [address] [place], [place] [phone] (Wo rk) documented as of this encounter Visit Diagnoses Not on filedocumented in this encounter Additional Health Concerns Assessment Noted Time PHQ-9 Depression Total Score: 6 07/20/2015 8:59 AM CDT documented as of this encounter
--- OUTSIDE RECORDS SUMMARY | 2022-01-25 16:39 | XMS_ITS | Encounter Summary ---
:1955 Author Organization [facility] Address [address] [place] [address] Care Team Providers Name Role Phone Unavailable Primary Care Provider Unavailable Encounter Details Date Type Department Care Team Description 08/03/2015 - Hospital Encounter HX RST PMR PT OT Rona Zamudio , 08/10/2015 P.T. [address] [place] [address] Social History Tobacco Use Types Packs/Day Years [...] do you attend worship or Never 2021 presybeterian services? Do you [...] Orthopedic Surgery Deon Herrera M.D. [address] [place], [place] [phone] (Wo rk) documented as of this encounter Visit Diagnoses Not on filedocumented in this encounter Additional Health Concerns Assessment Noted Time PHQ-9 Depression Total Score: 6 07/20/2015 8:59 AM CDT documented as of this encounter
--- OUTSIDE RECORDS SUMMARY | 2022-01-25 16:39 | XMS_ITS | Encounter Summary ---
:1955 Author Organization [facility] Address [address] [place] [address] Care Team Providers Name Role Phone Unavailable Primary Care Provider Unavailable Encounter Details Date Type Department Care Team Description 07/31/2015 - Hospital Encounter HX RST PAIN REHAB Keaton Hale 08/07/2015 PSYCH OP P, Ph.D., L.P. [address] [place] [phone] Social History Tobacco Use Types Packs/Day Years [...] do you attend christian or Never 2021 latter-day services? Do you [...] Orthopedic Surgery Deon Herrera M.D. [address] [place], [place] [phone] (Wo rk) documented as of this encounter Visit Diagnoses Not on filedocumented in this encounter Additional Health Concerns Assessment Noted Time PHQ-9 Depression Total Score: 6 07/20/2015 8:59 AM CDT documented as of this encounter
--- OUTSIDE RECORDS SUMMARY | 2022-01-25 16:39 | XMS_ITS | Encounter Summary ---
:1955 Author Organization [facility] Address [address] [place] [address] Care Team Providers Name Role Phone Unavailable Primary Care Provider Unavailable Encounter Details Date Type Department Care Team Description 07/31/2015 - Hospital Encounter HX RST PAIN REHAB Neeta Fitzpatrickzabeth 08/07/2015 PSYCH OP L, TRAVEL CLERK, VISUAL MERCHANDISING ASSOCIATE, R. N. [address] [facility] [address] PRATHER, Evaristo [address] [employer], [place] [address] (Wo rk) Social History [...] you attend oriental orthodox or Never 2021 druze services? Do you [...] Orthopedic Surgery Deon Herrera M.D. [address] [place], [place] [phone] (Wo rk) documented as of this encounter Visit Diagnoses Not on filedocumented in this encounter Additional Health Concerns Assessment Noted Time PHQ-9 Depression Total Score: 6 07/20/2015 8:59 AM CDT documented as of this encounter
--- OUTSIDE RECORDS SUMMARY | 2022-01-25 16:39 | XMS_ITS | Encounter Summary ---
:1955 Author Organization [facility] Address [address] [place] [address] Care Team Providers Name Role Phone Unavailable Primary Care Provider Unavailable Encounter Details Date Type Department Care Team Description 07/31/2015 - Hospital Encounter HX RST PMR PT OT Denny Reddy 08/07/2015 L, P.T. [address] [place] [address] Social History Tobacco Use Types Packs/Day Years [...] do you attend zoroastrianism or Never 2021 jehovah's witness services? Do [...] Orthopedic Surgery Deon Herrera M.D. [address] [place], [place] [phone] (Wo rk) documented as of this encounter Visit Diagnoses Not on filedocumented in this encounter Additional Health Concerns Assessment Noted Time PHQ-9 Depression Total Score: 6 07/20/2015 8:59 AM CDT documented as of this encounter
--- OUTSIDE RECORDS SUMMARY | 2022-01-25 16:39 | XMS_ITS | Encounter Summary ---
:1955 Author Organization [facility] Address [address] [place] [address] Care Team Providers Name Role Phone Unavailable Primary Care Provider Unavailable Encounter Details Date Type Department Care Team Description 08/03/2015 - Hospital Encounter HX RST PAIN REHAB Antonio Castro 08/10/2015 PSYCH OP J, Ph.D., L.P. [address] [place] [phone] Social History Tobacco Use Types Packs/Day [...] do you attend orthodoxy or Never 2021 jehovah's witness services? Do [...] Orthopedic Surgery Deon Herrera M.D. [address] [place], [place] [phone] (Wo rk) documented as of this encounter Visit Diagnoses Not on filedocumented in this encounter Additional Health Concerns Assessment Noted Time PHQ-9 Depression Total Score: 6 07/20/2015 8:59 AM CDT documented as of this encounter
--- OUTSIDE RECORDS SUMMARY | 2022-01-25 16:39 | XMS_ITS | Encounter Summary ---
:1955 Author Organization [facility] Address [address] [place] [address] Care Team Providers Name Role Phone Unavailable Primary Care Provider Unavailable Encounter Details Date Type Department Care Team Description 08/01/2015 - Hospital Encounter HX RST PAIN REHAB Jesse, 08/08/2015 PSYCH OP Colleen Polk M.D., Ph.D. [address] [place] [phone] Social History Tobacco Use Types Packs/Day Years [...] you attend oriental orthodox or Never 2021 gnosticist services? Do [...] Surgery Deon Herrera M.D. [address] [place], [place] [phone] (Wo rk) documented as of this encounter Visit Diagnoses Not on filedocumented in this encounter Additional Health Concerns Assessment Noted Time PHQ-9 Depression Total Score: 6 07/20/2015 8:59 AM CDT documented as of this encounter
--- OUTSIDE RECORDS SUMMARY | 2022-01-25 16:39 | XMS_ITS | Encounter Summary ---
:1955 Author Organization [facility] Address [address] [place] [address] Care Team Providers Name Role Phone Unavailable Primary Care Provider Unavailable Encounter Details Date Type Department Care Team Description 08/01/2015 - Hospital Encounter HX RST PAIN REHAB Kaye Fitzpatrick 08/08/2015 PSYCH OP L, POWDERED METAL SUPERVISOR, ORDER TRACER, R. N. [address] [facility] [address] [facility] [address] PRATHER, Evaristo 201 [place], [place] [address] (Wo rk) Social History [...] do you attend worship or Never 2021 anabaptism services? Do you [...] Orthopedic Surgery Deon Herrera M.D. [address] [place], [place] [phone] (Wo rk) documented as of this encounter Visit Diagnoses Not on filedocumented in this encounter Additional Health Concerns Assessment Noted Time PHQ-9 Depression Total Score: 6 07/20/2015 8:59 AM CDT documented as of this encounter
--- OUTSIDE RECORDS SUMMARY | 2022-01-25 16:39 | XMS_ITS | Encounter Summary ---
:1955 Author Organization [facility] Address [address] [place] [address] Care Team Providers Name Role Phone Unavailable [...] do you attend mormon or Never 2021 sikhism services? Do you [...] Orthopedic Surgery Deon Herrera M.D. [address] [place] [address] [phone] (Wo rk) documented as of this encounter Visit Diagnoses Not on filedocumented in this encounter Additional Health Concerns Assessment Noted Time PHQ-9 Depression Total Score: 6 07/20/2015 8:59 AM CDT documented as of this encounter
--- OUTSIDE RECORDS SUMMARY | 2022-01-25 16:39 | XMS_ITS | Encounter Summary ---
:1955 Author Organization [facility] Address [address] [place] [address] Care Team Providers Name Role Phone Unavailable Primary Care Provider Unavailable Encounter Details Date Type Department Care Team Description 07/31/2015 - Hospital Encounter HX RST PMR PT OT Jones Hernandez, 08/07/2015 O.T. [address] [place] [address] Social History Tobacco Use Types Packs/Day Years [...] do you attend baptist or Never 2021 amish services? Do you [...] Orthopedic Surgery Deon Herrera M.D. [address] [place], [place] [phone] (Wo rk) documented as of this encounter Visit Diagnoses Not on filedocumented in this encounter Additional Health Concerns Assessment Noted Time PHQ-9 Depression Total Score: 6 07/20/2015 8:59 AM CDT documented as of this encounter
--- OUTSIDE RECORDS SUMMARY | 2022-01-25 16:39 | XMS_ITS | Encounter Summary ---
:1955 Author Organization [facility] Address [address] [place] [address] Care Team Providers Name Role Phone Unavailable [...] do you attend sikhism or Never 2021 congregational services? Do you [...] Orthopedic Surgery Deon Herrera M.D. [address] [place] [address] [phone] (Wo rk) documented as of this encounter Visit Diagnoses Not on filedocumented in this encounter Additional Health Concerns Assessment Noted Time PHQ-9 Depression Total Score: 6 07/20/2015 8:59 AM CDT documented as of this encounter
--- OUTSIDE RECORDS SUMMARY | 2022-01-25 16:39 | XMS_ITS | Encounter Summary ---
:1955 Author Organization [facility] Address [address] [place] [address] Care Team Providers Name Role Phone Unavailable Primary Care Provider Unavailable Encounter Details Date Type Department Care Team Description 07/31/2015 - Hospital Encounter HX RST PAIN REHAB Keaton Hale 08/07/2015 PSYCH OP P, Ph.D., L.P. [address] [place] [phone] Social History Tobacco Use Types Packs/Day Years [...] do you attend gnosticism or Never 2021 episcopal services? Do you [...] Orthopedic Surgery Deon Herrera M.D. [address] [place], [place] [phone] (Wo rk) documented as of this encounter Visit Diagnoses Not on filedocumented in this encounter Additional Health Concerns Assessment Noted Time PHQ-9 Depression Total Score: 6 07/20/2015 8:59 AM CDT documented as of this encounter
--- OUTSIDE RECORDS SUMMARY | 2022-01-25 16:40 | XMS_ITS | Encounter Summary ---
:1955 Author Organization [facility] Address [address] [place] [address] Care Team Providers Name Role Phone Unavailable Primary Care Provider Unavailable Encounter Details Date Type Department Care Team Description 07/26/2015 - Hospital Encounter HX RST PMR PT OT Rona Zamudio , 08/02/2015 P.T. [address] [place] [address] Social History Tobacco Use Types Packs/Day Years [...] do you attend buddhist or Never 2021 shinto services? Do you [...] Orthopedic Surgery Deon Herrera M.D. [address] [place], [place] [phone] (Wo rk) documented as of this encounter Visit Diagnoses Not on filedocumented in this encounter Additional Health Concerns Assessment Noted Time PHQ-9 Depression Total Score: 6 07/20/2015 8:59 AM CDT documented as of this encounter
--- OUTSIDE RECORDS SUMMARY | 2022-01-25 16:40 | XMS_ITS | Encounter Summary ---
:1955 Author Organization [facility] Address [address] [place] [address] Care Team Providers Name Role Phone Unavailable Primary Care Provider Unavailable Encounter Details Date Type Department Care Team Description 07/28/2015 - Hospital Encounter HX RST PAIN REHAB Antonio Castro 08/04/2015 PSYCH OP J, Ph.D., L.P. [address] [place] [address] [phone] Social History Tobacco Use Types Packs/Day Years [...] do you attend evangelical or Never 2021 temple services? Do you [...] Orthopedic Surgery Deon Herrera M.D. [address] [place], [place] [phone] (Wo rk) documented as of this encounter Visit Diagnoses Not on filedocumented in this encounter Additional Health Concerns Assessment Noted Time PHQ-9 Depression Total Score: 6 07/20/2015 8:59 AM CDT documented as of this encounter
--- OUTSIDE RECORDS SUMMARY | 2022-01-25 16:40 | XMS_ITS | Encounter Summary ---
:1955 Author Organization [facility] Address [address] [place] [address] Care Team Providers Name Role Phone Unavailable Primary Care Provider Unavailable Encounter Details Date Type Department Care Team Description 07/27/2015 - Hospital Encounter HX RST PAIN REHAB Vipul Kelly, 08/03/2015 PSYCH OP LIVING SKILLS ADVISOR, COOPERATIVE EDUCATION DIRECTOR [address] [place] [address] Social History Tobacco Use Types Packs/Day Years [...] do you attend scientologist or Never 2021 sabianist services? Do you [...] Surgery Deon Herrera M.D. [address] [place], [place] [phone] (Wo rk) documented as of this encounter Visit Diagnoses Not on filedocumented in this encounter Additional Health Concerns Assessment Noted Time PHQ-9 Depression Total Score: 6 07/20/2015 8:59 AM CDT documented as of this encounter
--- OUTSIDE RECORDS SUMMARY | 2022-01-25 16:40 | XMS_ITS | Encounter Summary ---
:1955 Author Organization [facility] Address [address] [place] [address] Care Team Providers Name Role Phone Unavailable Primary Care Provider Unavailable Encounter Details Date Type Department Care Team Description 07/28/2015 - Hospital Encounter HX RST PAIN REHAB Keaton Hale 08/04/2015 PSYCH OP P, Ph.D., L.P. [address] [place] [address] [phone] Social History Tobacco Use Types Packs/Day Years [...] do you attend jewish or Never 2021 methodist services? Do you [...] Orthopedic Surgery Deon Herrera M.D. [address] [place], [place] [phone] (Wo rk) documented as of this encounter Visit Diagnoses Not on filedocumented in this encounter Additional Health Concerns Assessment Noted Time PHQ-9 Depression Total Score: 6 07/20/2015 8:59 AM CDT documented as of this encounter
--- OUTSIDE RECORDS SUMMARY | 2022-01-25 16:40 | XMS_ITS | Encounter Summary ---
:1955 Author Organization [facility] Address [address] [place] [address] Care Team Providers Name Role Phone Unavailable Primary Care Provider Unavailable Encounter Details Date Type Department Care Team Description 07/27/2015 - Hospital Encounter HX RST PAIN REHAB Zuly Frederick , 08/03/2015 PSYCH OP Ph.D., L.P. [address] [place] [address] Social History Tobacco Use Types [...] do you attend mandaeism or Never 2021 mormonism services? Do you [...] Orthopedic Surgery Deon Herrera M.D. [address] [place], [place] [phone] (Wo rk) documented as of this encounter Visit Diagnoses Not on filedocumented in this encounter Additional Health Concerns Assessment Noted Time PHQ-9 Depression Total Score: 6 07/20/2015 8:59 AM CDT documented as of this encounter
--- OUTSIDE RECORDS SUMMARY | 2022-01-25 16:40 | XMS_ITS | Encounter Summary ---
:1955 Author Organization [facility] Address [address] [place] [address] Care Team Providers Name Role Phone Unavailable Primary Care Provider Unavailable Encounter Details Date Type Department Care Team Description 07/26/2015 - Hospital Encounter HX RST PAIN REHAB Ketaon Hale 08/02/2015 PSYCH OP P, Ph.D., L.P. [address] [place] [address] [phone] Social History Tobacco Use Types Packs/Day Years [...] do you attend adventist or Never 2021 jainism services? Do you [...] Orthopedic Surgery Deon Herrera M.D. [address] [place], [place] [phone] (Wo rk) documented as of this encounter Visit Diagnoses Not on filedocumented in this encounter Additional Health Concerns Assessment Noted Time PHQ-9 Depression Total Score: 6 07/20/2015 8:59 AM CDT documented as of this encounter
--- OUTSIDE RECORDS SUMMARY | 2022-01-25 16:40 | XMS_ITS | Encounter Summary ---
:1955 Author Organization [facility] Address [address] [place] [address] Care Team Providers Name Role Phone Unavailable Primary Care Provider Unavailable Encounter Details Date Type Department Care Team Description 07/26/2015 - Hospital Encounter HX RST PAIN REHAB Keaton Hale 08/02/2015 PSYCH OP P, Ph.D., L.P. [address] [place] [phone] Social History Tobacco Use Types Packs/Day Years [...] do you attend hoahaoism or Never 2021 mormonism services? Do you [...] Orthopedic Surgery Deon Herrera M.D. [address] [place], [place] [phone] (Wo rk) documented as of this encounter Visit Diagnoses Not on filedocumented in this encounter Additional Health Concerns Assessment Noted Time PHQ-9 Depression Total Score: 6 07/20/2015 8:59 AM CDT documented as of this encounter
--- OUTSIDE RECORDS SUMMARY | 2022-01-25 16:40 | XMS_ITS | Encounter Summary ---
:1955 Author Organization [facility] Address [address] [place] [address] Care Team Providers Name Role Phone Unavailable Primary Care Provider Unavailable Encounter Details Date Type Department Care Team Description 07/25/2015 - Hospital Encounter HX RST PAIN REHAB Indy Ramos, 08/01/2015 PSYCH OP ACUTE COORDINATOR, FIRE MANAGER, D.N.P., M.S.N. [address] [place] [phone] Social History Tobacco Use Types Packs/Day Years [...] Orthopedic Surgery Deon Herrera M.D. [address] [place] [address] [phone] (Wo rk) documented as of this encounter Visit Diagnoses Not on filedocumented in this encounter Additional Health Concerns Assessment Noted Time PHQ-9 Depression Total Score: 6 07/20/2015 8:59 AM CDT documented as of this encounter
--- OUTSIDE RECORDS SUMMARY | 2022-01-25 16:40 | XMS_ITS | Encounter Summary ---
:1955 Author Organization [facility] Address [address] [place] [address] Care Team Providers Name Role Phone Unavailable Primary Care Provider Unavailable Encounter Details Date Type Department Care Team Description 07/26/2015 - Hospital Encounter HX RST PAIN REHAB Vipul Kelly, 08/02/2015 PSYCH OP QUARANTINE OFFICER, SCOW CAPTAIN [address] [place] [address] Social History Tobacco Use Types Packs/Day Years [...] do you attend yarsanism or Never 2021 restorationism services? Do you [...] Orthopedic Surgery Deon Herrera M.D. [address] [place], [place] [phone] (Wo rk) documented as of this encounter Visit Diagnoses Not on filedocumented in this encounter Additional Health Concerns Assessment Noted Time PHQ-9 Depression Total Score: 6 07/20/2015 8:59 AM CDT documented as of this encounter
--- OUTSIDE RECORDS SUMMARY | 2022-01-25 16:40 | XMS_ITS | Encounter Summary ---
:1955 Author Organization [facility] Address [address] [place] [address] Care Team Providers Name Role Phone Unavailable Primary Care Provider Unavailable Encounter Details Date Type Department Care Team Description 07/26/2015 - Hospital Encounter HX RST PAIN REHAB Vipul Kelly, 08/02/2015 PSYCH OP WOOL SACKER, FORWARD AIR CONTROLLER/AIR OFFICER [address] [place] [address] Social History Tobacco Use Types Packs/Day Years [...] do you attend mosque or Never 2021 adventist services? Do you [...]
--- OUTSIDE RECORDS SUMMARY | 2022-01-25 16:40 | XMS_ITS | Encounter Summary ---
:1955 Author Organization [facility] Address [address] [place] [address] Care Team Providers Name Role Phone Unavailable Primary Care Provider Unavailable Encounter Details Date Type Department Care Team Description 07/27/2015 - Hospital Encounter HX RST PAIN REHAB Antonio Castro 08/03/2015 PSYCH OP J, Ph.D., L.P. [address] [place] [phone] Social History Tobacco Use Types Packs/Day Years [...] do you attend anglican or Never 2021 gnosticist services? Do you [...] Orthopedic Surgery Deon Herrera M.D. [address] [place], [place] [phone] (Wo rk) documented as of this encounter Visit Diagnoses Not on filedocumented in this encounter Additional Health Concerns Assessment Noted Time PHQ-9 Depression Total Score: 6 07/20/2015 8:59 AM CDT documented as of this encounter
--- OUTSIDE RECORDS SUMMARY | 2022-01-25 16:40 | XMS_ITS | Encounter Summary ---
:1955 Author Organization [facility] Address [address] [place] [address] Care Team Providers Name Role Phone Unavailable Primary Care Provider Unavailable Encounter Details Date Type Department Care Team Description 07/28/2015 - Hospital Encounter HX RST PAIN REHAB Kaye Fitzpatrick 08/04/2015 PSYCH OP L, FRAUD INVESTIGATOR, ORGANIZATIONAL RESEARCH CONSULTANT, R. N. [address] PRATHER, Evaristo [address] [place], [place] [address] (Wo rk) Social History [...] or relatives? How often do you attend anabaptist or Never 2021 cheondoism services? Do you belong to any clubs or Yes 12/12/2021 organizations such as anabaptist groups, unions, fraternal or athletic groups, or [...] Orthopedic Surgery Deon Herrera M.D. [address] [place], [place] [phone] (Wo rk) documented as of this encounter Visit Diagnoses Not on filedocumented in this encounter Additional Health Concerns Assessment Noted Time PHQ-9 Depression Total Score: 6 07/20/2015 8:59 AM CDT documented as of this encounter
--- OUTSIDE RECORDS SUMMARY | 2022-01-25 16:40 | XMS_ITS | Encounter Summary ---
:1955 Author Organization [facility] Address [address] [place] [address] Care Team Providers Name Role Phone Unavailable [...] Visit Orthopedic Surgery Deon Herrera M.D. [address] [place] [address] [phone] (Wo rk) documented as of this encounter Visit Diagnoses Not on filedocumented in this encounter Additional Health Concerns Assessment Noted Time PHQ-9 Depression Total Score: 6 07/20/2015 8:59 AM CDT documented as of this encounter
--- OUTSIDE RECORDS SUMMARY | 2022-01-25 16:40 | XMS_ITS | Encounter Summary ---
:1955 Author Organization [facility] Address [address] [place] [address] Care Team Providers Name Role Phone Unavailable Primary Care Provider Unavailable Encounter Details Date Type Department Care Team Description 07/31/2015 - Hospital Encounter HX RST PAIN REHAB Neeta Fitzpatrickzabeth 08/07/2015 PSYCH OP L, ROULETTE DEALER, RN ADVANCED, R. N. [address] PRATHER, Evaristo [address] [place], [place] [address] (Wo rk) Social History [...] do you attend catholic or Never 2021 jainism services? Do you [...]
--- OUTSIDE RECORDS SUMMARY | 2022-01-25 16:40 | XMS_ITS | Encounter Summary ---
:1955 Author Organization [facility] Address [address] [place] [address] Care Team Providers Name Role Phone Unavailable Primary Care Provider Unavailable Encounter Details Date Type Department Care Team Description 07/26/2015 - Hospital Encounter HX RST PAIN REHAB Kaye Fitzpatrick 08/02/2015 PSYCH OP L, QUALITY REP, DIRECTOR LIFE SCIENCES, R. N. [address] PRATHER, Evaristo [address] [place], [place] [address] (Wo rk) Social History [...] do you attend samaritan or Never 2021 yazidism services? Do you [...] Orthopedic Surgery Deon Herrera M.D. [address] [place], [place] [phone] (Wo rk) documented as of this encounter Visit Diagnoses Not on filedocumented in this encounter Additional Health Concerns Assessment Noted Time PHQ-9 Depression Total Score: 6 07/20/2015 8:59 AM CDT documented as of this encounter
--- OUTSIDE RECORDS SUMMARY | 2022-01-25 16:40 | XMS_ITS | Encounter Summary ---
:1955 Author Organization [facility] Address [address] [place] [address] Care Team Providers Name Role Phone Unavailable Primary Care Provider Unavailable Encounter Details Date Type Department Care Team Description 07/28/2015 - Hospital Encounter HX RST PAIN REHAB Antonio Castro 08/04/2015 PSYCH OP J, Ph.D., L.P. [address] [place] [address] [phone] Social History Tobacco Use Types Packs/Day Years [...] do you attend restoration or Never 2021 religion services? Do you [...] Orthopedic Surgery Deon Herrera M.D. [address] [place], [place] [phone] (Wo rk) documented as of this encounter Visit Diagnoses Not on filedocumented in this encounter Additional Health Concerns Assessment Noted Time PHQ-9 Depression Total Score: 6 07/20/2015 8:59 AM CDT documented as of this encounter
--- OUTSIDE RECORDS SUMMARY | 2022-01-25 16:40 | XMS_ITS | Encounter Summary ---
:1955 Author Organization [facility] Address [address] [place] [address] Care Team Providers Name Role Phone Unavailable Primary Care Provider Unavailable Encounter Details Date Type Department Care Team Description 07/27/2015 - Hospital Encounter HX RST PAIN REHAB Kaye Fitzpatrick 08/03/2015 PSYCH OP L, SECURITY OPERATIONS CENTER OPERATOR, STUDIO RECEPTIONIST, R. N. [address] PRATHER, Evaristo [address] [place], [place] [address] (Wo rk) Social History [...] do you attend gnosticist or Never 2021 evangelical services? Do you [...] Orthopedic Surgery Deon Herrera M.D. [address] [place], [place] [phone] (Wo rk) documented as of this encounter Visit Diagnoses Not on filedocumented in this encounter Additional Health Concerns Assessment Noted Time PHQ-9 Depression Total Score: 6 07/20/2015 8:59 AM CDT documented as of this encounter
--- OUTSIDE RECORDS SUMMARY | 2022-01-25 16:40 | XMS_ITS | Encounter Summary ---
:1955 Author Organization [facility] Address [address] [place] [address] Care Team Providers Name Role Phone Unavailable Primary Care Provider Unavailable Encounter Details Date Type Department Care Team Description 07/27/2015 - Hospital Encounter HX RST PAIN REHAB Vipul Kelly, 08/03/2015 PSYCH OP LOCK STITCH CHANNELER, SALES AND MARKETING EXECUTIVE [address] [place] [address] Social History Tobacco Use Types Packs/Day Years [...] do you attend alevism or Never 2021 quaker services? Do you [...] Orthopedic Surgery Deon Herrera M.D. [address] [place], [place] [phone] (Wo rk) documented as of this encounter Visit Diagnoses Not on filedocumented in this encounter Additional Health Concerns Assessment Noted Time PHQ-9 Depression Total Score: 6 07/20/2015 8:59 AM CDT documented as of this encounter
--- OUTSIDE RECORDS SUMMARY | 2022-01-25 16:40 | XMS_ITS | Encounter Summary ---
:1955 Author Organization [facility] Address [address] [place] [address] Care Team Providers Name Role Phone Unavailable Primary Care Provider Unavailable Encounter Details Date Type Department Care Team Description 07/27/2015 - Hospital Encounter HX RST PMR PT OT Rona Zamudio , 08/03/2015 P.T. [address] [place] [address] Social History Tobacco Use Types Packs/Day Years [...] do you attend alevism or Never 2021 yazidism services? Do you [...]
--- OUTSIDE RECORDS SUMMARY | 2022-01-25 16:40 | XMS_ITS | Encounter Summary ---
:1955 Author Organization [facility] Address [address] [place] [address] Care Team Providers Name Role Phone Unavailable Primary Care Provider Unavailable Encounter Details Date Type Department Care Team Description 07/28/2015 - Hospital Encounter HX RST PMR PT OT Denny Reddy 08/04/2015 L, P.T. [address] [place] [address] Social History Tobacco Use Types Packs/Day Years [...] you attend latter day or Never 2021 faith services? Do you [...] Orthopedic Surgery Deon Herrera M.D. [address] [place], [place] [phone] (Wo rk) documented as of this encounter Visit Diagnoses Not on filedocumented in this encounter Additional Health Concerns Assessment Noted Time PHQ-9 Depression Total Score: 6 07/20/2015 8:59 AM CDT documented as of this encounter
--- OUTSIDE RECORDS SUMMARY | 2022-01-25 16:40 | XMS_ITS | Encounter Summary ---
:1955 Author Organization [facility] Address [address] [place] [address] Care Team Providers Name Role Phone Unavailable Primary Care Provider Unavailable Encounter Details Date Type Department Care Team Description 08/03/2015 Hospital Encounter HX RST FIBROMYALGIA Margarette Robertson, ALES[place], C.N.P., D.N.P., M.S. [address] [place] [phone] (Wo rk) Social History Tobacco Use Types [...] do you attend restorationism or Never 2021 hinduism services? Do you [...] Orthopedic Surgery Deon Herrera M.D. [address] [place], [place] [phone] (Wo rk) documented as of this encounter Visit Diagnoses Not on filedocumented in this encounter Additional Health Concerns Assessment Noted Time PHQ-9 Depression Total Score: 6 07/20/2015 8:59 AM CDT documented as of this encounter
--- OUTSIDE RECORDS SUMMARY | 2022-01-25 16:40 | XMS_ITS | Encounter Summary ---
:1955 Author Organization [facility] Address [address] [place] [address] Care Team Providers Name Role Phone Unavailable [...] do you attend orthodoxy or Never 2021 yazidi services? Do you [...] Visit Orthopedic Surgery Deon Herrera M.D. [address] [place] [phone] (Wo rk) documented as of this encounter Visit Diagnoses Not on filedocumented in this encounter Additional Health Concerns Assessment Noted Time PHQ-9 Depression Total Score: 6 07/20/2015 8:59 AM CDT documented as of this encounter
--- OUTSIDE RECORDS SUMMARY | 2022-01-25 16:40 | XMS_ITS | Encounter Summary ---
:1955 Author Organization [facility] Address [address] [place] [address] Care Team Providers Name Role Phone Unavailable Primary Care Provider Unavailable Encounter Details Date Type Department Care Team Description 07/27/2015 - Hospital Encounter HX RST PAIN REHAB Zuly Frederick , 08/03/2015 PSYCH OP Ph.D., L.P. [address] [place] [address] Social History Tobacco Use Types [...] do you attend mormonism or Never 2021 sikhism services? Do you [...] Orthopedic Surgery Deon Herrera M.D. [address] [place], [place] [phone] (Wo rk) documented as of this encounter Visit Diagnoses Not on filedocumented in this encounter Additional Health Concerns Assessment Noted Time PHQ-9 Depression Total Score: 6 07/20/2015 8:59 AM CDT documented as of this encounter
--- OUTSIDE RECORDS SUMMARY | 2022-01-25 16:41 | XMS_ITS | Encounter Summary ---
:1955 Author Organization [facility] Address [address] [place] [address] Care Team Providers Name Role Phone Unavailable Primary Care Provider Unavailable Encounter Details Date Type Department Care Team Description 07/25/2015 - Hospital Encounter HX RST PMR PT OT Denny Reddy 08/01/2015 L, P.T. [address] [place] [address] Social History Tobacco Use Types Packs/Day Years [...] do you attend quaker or Never 2021 adventist services? Do you [...] Surgery Deon Herrera M.D. [address] [place], [place] [phone] (Wo rk) documented as of this encounter Visit Diagnoses Not on filedocumented in this encounter Additional Health Concerns Assessment Noted Time PHQ-9 Depression Total Score: 6 07/20/2015 8:59 AM CDT documented as of this encounter
--- OUTSIDE RECORDS SUMMARY | 2022-01-25 16:41 | XMS_ITS | Encounter Summary ---
:1955 Author Organization [facility] Address [address] [place] [address] Care Team Providers Name Role Phone Unavailable Primary Care Provider Unavailable Encounter Details Date Type Department Care Team Description 07/24/2015 - Hospital Encounter HX RST PAIN REHAB Indy Ramos, 07/31/2015 PSYCH OP SKIN DRIER, FABRICATOR ASSEMBLER [employer], D.N.P., M.S.N. [address] [place] [phone] Social History Tobacco Use Types Packs/Day Years [...] do you attend christian or Never 2021 baptist services? Do you [...] Orthopedic Surgery Deon Herrera M.D. [address] [place] [address] [phone] (Wo rk) documented as of this encounter Visit Diagnoses Not on filedocumented in this encounter Additional Health Concerns Assessment Noted Time PHQ-9 Depression Total Score: 6 07/20/2015 8:59 AM CDT documented as of this encounter
--- OUTSIDE RECORDS SUMMARY | 2022-01-25 16:41 | XMS_ITS | Encounter Summary ---
:1955 Author Organization [facility] Address [address] [place] [address] Care Team Providers Name Role Phone Unavailable Primary Care Provider Unavailable Encounter Details Date Type Department Care Team Description 07/25/2015 - Hospital Encounter HX RST PAIN REHAB Jesse, 08/01/2015 PSYCH OP Colleen Polk M.D., Ph.D. [address] [place] [phone] Social History Tobacco Use Types Packs/Day Years [...] do you attend restorationist or Never 2021 christianity services? Do you [...] Surgery Deon Herrera M.D. [address] [place], [place] [phone] (Wo rk) documented as of this encounter Visit Diagnoses Not on filedocumented in this encounter Additional Health Concerns Assessment Noted Time PHQ-9 Depression Total Score: 6 07/20/2015 8:59 AM CDT documented as of this encounter
--- OUTSIDE RECORDS SUMMARY | 2022-01-25 16:41 | XMS_ITS | Encounter Summary ---
:1955 Author Organization [facility] Address [address] [place] [address] Care Team Providers Name Role Phone Unavailable Primary Care Provider Unavailable Encounter Details Date Type Department Care Team Description 07/21/2015 - Hospital Encounter HX RST PMR PT OT Denny Reddy 07/28/2015 L, P.T. [address] [place] [address] Social History Tobacco Use Types Packs/Day Years [...] do you attend restorationist or Never 2021 sikhism services? Do you [...] Orthopedic Surgery Deon Herrera M.D. [address] [place], [place] [phone] (Wo rk) documented as of this encounter Visit Diagnoses Not on filedocumented in this encounter Additional Health Concerns Assessment Noted Time PHQ-9 Depression Total Score: 6 07/20/2015 8:59 AM CDT documented as of this encounter
--- OUTSIDE RECORDS SUMMARY | 2022-01-25 16:41 | XMS_ITS | Encounter Summary ---
:1955 Author Organization [facility] Address [address] [place] [address] Care Team Providers Name Role Phone Unavailable Primary Care Provider Unavailable Encounter Details Date Type Department Care Team Description 07/24/2015 - Hospital Encounter HX RST PAIN REHAB Indy Ramos, 07/31/2015 PSYCH OP GRANITE FABRICATOR, FRENCH EDGE OPERATOR, D.N.P., M.S.N. [address] [place] [phone] Social History Tobacco Use Types Packs/Day Years [...] do you attend congregation or Never 2021 jew services? Do you [...] Orthopedic Surgery Deon Herrera M.D. [address] [place] [phone] (Wo rk) documented as of this encounter Visit Diagnoses Not on filedocumented in this encounter Additional Health Concerns Assessment Noted Time PHQ-9 Depression Total Score: 6 07/20/2015 8:59 AM CDT documented as of this encounter
--- OUTSIDE RECORDS SUMMARY | 2022-01-25 16:41 | XMS_ITS | Encounter Summary ---
:1955 Author Organization [facility] Address [address] [place] [address] Care Team Providers Name Role Phone Unavailable Primary Care Provider Unavailable Encounter Details Date Type Department Care Team Description 07/19/2015 - Hospital Encounter HX RST PMR PT OT Jones Hernandez, 07/26/2015 O.T. [address] [place] [address] Social History Tobacco Use Types Packs/Day Years [...] do you attend druze or Never 2021 episcopal services? Do you [...] Orthopedic Surgery Deon Herrera M.D. [address] [place], [place] [phone] (Wo rk) documented as of this encounter Visit Diagnoses Not on filedocumented in this encounter Additional Health Concerns Assessment Noted Time PHQ-9 Depression Total Score: 4 01/24/2015 6:02 PM MANAGEMENT COORDINATOR documented as of this encounter
--- OUTSIDE RECORDS SUMMARY | 2022-01-25 16:41 | XMS_ITS | Encounter Summary ---
:1955 Author Organization [facility] Address [address] [place] [address] Care Team Providers Name Role Phone Unavailable Primary Care Provider Unavailable Encounter Details Date Type Department Care Team Description 07/24/2015 - Hospital Encounter HX RST PMR PT OT Clare Clay , 07/31/2015 O.T. [address] [facility] [place], [place] [address] (Wo rk) Social History [...] you attend jehovah's witness or Never 2021 episcopalian services? Do you [...] Surgery Deon Herrera M.D. [address] [place], [place] [phone] (Wo rk) documented as of this encounter Visit Diagnoses Not on filedocumented in this encounter Additional Health Concerns Assessment Noted Time PHQ-9 Depression Total Score: 6 07/20/2015 8:59 AM CDT documented as of this encounter
--- OUTSIDE RECORDS SUMMARY | 2022-01-25 16:41 | XMS_ITS | Encounter Summary ---
:1955 Author Organization [facility] Address [address] [place] [address] Care Team Providers Name Role Phone Unavailable Primary Care Provider Unavailable Encounter Details Date Type Department Care Team Description 07/25/2015 - Hospital Encounter HX RST PMR PT OT Hamilton Oquendo ie 08/01/2015 N, O.T. [address] [place] [phone] (Wo rk) Social History Tobacco Use Types [...] do you attend jewish or Never 2021 judaism services? Do you [...] Orthopedic Surgery Deon Herrera M.D. [address] [place], [place] [phone] (Wo rk) documented as of this encounter Visit Diagnoses Not on filedocumented in this encounter Additional Health Concerns Assessment Noted Time PHQ-9 Depression Total Score: 6 07/20/2015 8:59 AM CDT documented as of this encounter
--- OUTSIDE RECORDS SUMMARY | 2022-01-25 16:41 | XMS_ITS | Encounter Summary ---
:1955 Author Organization [facility] Address [address] [place] [address] Care Team Providers Name Role Phone Unavailable Primary Care Provider Unavailable Encounter Details Date Type Department Care Team Description 07/24/2015 - Hospital Encounter HX RST PAIN REHAB Vipul Kelly, 07/31/2015 PSYCH OP COMPLIANCE FIELD TECHNICIAN, GEOTHERMAL PLANT MANAGER [address] [place] [address] Social History Tobacco Use Types Packs/Day Years [...] do you attend synagogue or Never 2021 yarsani services? Do you [...]
--- OUTSIDE RECORDS SUMMARY | 2022-01-25 16:41 | XMS_ITS | Encounter Summary ---
:1955 Author Organization [facility] Address [address] [place] [address] Care Team Providers Name Role Phone Unavailable Primary Care Provider Unavailable Encounter Details Date Type Department Care Team Description 07/21/2015 - Hospital Encounter HX RST PAIN REHAB Kaye Fitzpatrick 07/28/2015 PSYCH OP L, SLIP PRESSER, CONTRACT COORDINATOR, R. N. [address] [facility] [address] PRATHER, Evaristo [address] [place], [place] [address] (Wo rk) Social History [...] do you attend taoism or Never 2021 hindu services? Do you [...] Orthopedic Surgery Deon Herrera M.D. [address] [place], [place] [phone] (Wo rk) documented as of this encounter Visit Diagnoses Not on filedocumented in this encounter Additional Health Concerns Assessment Noted Time PHQ-9 Depression Total Score: 6 07/20/2015 8:59 AM CDT documented as of this encounter
--- OUTSIDE RECORDS SUMMARY | 2022-01-25 16:41 | XMS_ITS | Encounter Summary ---
:1955 Author Organization [facility] Address [address] [place] [address] Care Team Providers Name Role Phone Unavailable Primary Care Provider Unavailable Encounter Details Date Type Department Care Team Description 07/21/2015 - Hospital Encounter HX RST PMR PT OT Toby Espinoza da 07/28/2015 Mignon Polk., O.T., [facility] [address] [place] [phone] Social History Tobacco Use Types Packs/Day Years [...] do you attend adventism or Never 2021 rastafari services? Do you [...] Orthopedic Surgery Deon Herrera M.D. [address] [place], [place] [phone] (Wo rk) documented as of this encounter Visit Diagnoses Not on filedocumented in this encounter Additional Health Concerns Assessment Noted Time PHQ-9 Depression Total Score: 6 07/20/2015 8:59 AM CDT documented as of this encounter
--- OUTSIDE RECORDS SUMMARY | 2022-01-25 16:41 | XMS_ITS | Encounter Summary ---
:1955 Author Organization [facility] Address [address] [place] [address] Care Team Providers Name Role Phone Unavailable Primary Care Provider Unavailable Encounter Details Date Type Department Care Team Description 07/19/2015 - Hospital Encounter HX RST PMR PT OT Clare Clay , 07/26/[address] [facility] [place], [place] [address] (Wo rk) Social History [...] do you attend latter-day or Never 2021 restoration services? Do you [...] Orthopedic Surgery Deon Herrera M.D. [address] [place], [place] [phone] (Wo rk) documented as of this encounter Visit Diagnoses Not on filedocumented in this encounter Additional Health Concerns Assessment Noted Time PHQ-9 Depression Total Score: 4 01/24/2015 6:02 PM AVIONICS SAFETY INSPECTOR documented as of this encounter
--- OUTSIDE RECORDS SUMMARY | 2022-01-25 16:41 | XMS_ITS | Encounter Summary ---
:1955 Author Organization [facility] Address [address] [place] [id number] Care Team Providers Name Role Phone Unavailable Primary Care Provider Unavailable Encounter Details Date Type Department Care Team Description 07/20/2015 - Hospital Encounter HX RST PHARMACY PT [place], 07/27/2015 EDUC Sherin Polk, Pharm.D., R.Ph. [address] [place] [phone] Social History Tobacco Use Types Packs/Day Years [...] do you attend shinto or Never 2021 anabaptism services? Do you [...] Orthopedic Surgery Deon Herrera M.D. [address] [place], [place] [phone] (Wo rk) documented as of this encounter Visit Diagnoses Not on filedocumented in this encounter Additional Health Concerns Assessment Noted Time PHQ-9 Depression Total Score: 6 07/20/2015 8:59 AM CDT documented as of this encounter
--- OUTSIDE RECORDS SUMMARY | 2022-01-25 16:41 | XMS_ITS | Encounter Summary ---
:1955 Author Organization [facility] Address [address] [place] [address] Care Team Providers Name Role Phone Unavailable Primary Care Provider Unavailable Encounter Details Date Type Department Care Team Description 07/25/2015 - Hospital Encounter HX RST PAIN REHAB Indy Ramos, 08/01/2015 PSYCH OP LEAD MAINTENANCE TECHNICIAN, DUDE WRANGLER, D.N.P., M.S.N. [address] [place] [phone] Social History Tobacco Use Types Packs/Day Years [...] do you attend uatsdin or Never 2021 druze services? Do you [...] Orthopedic Surgery Deon Herrera M.D. [address] [place] [phone] (Wo rk) documented as of this encounter Visit Diagnoses Not on filedocumented in this encounter Additional Health Concerns Assessment Noted Time PHQ-9 Depression Total Score: 6 07/20/2015 8:59 AM CDT documented as of this encounter
--- OUTSIDE RECORDS SUMMARY | 2022-01-25 16:41 | XMS_ITS | Encounter Summary ---
:1955 Author Organization [facility] Address [address] [place] [address] Care Team Providers Name Role Phone Unavailable Primary Care Provider Unavailable Encounter Details Date Type Department Care Team Description 07/19/2015 Hospital Encounter HX NO MAPPING Mata And ambreen Polk PSukh [address] [place], [place] [phone] (Wo rk) Social History [...] do you attend sikhism or Never 2021 hinduism services? Do you [...] Orthopedic Surgery Deon Herrera M.D. [address] [place] [phone] (Wo ligia) documented as of this encounter Visit Diagnoses Not on filedocumented in this encounter Additional Health Concerns Assessment Noted Time PHQ-9 Depression Total Score: 4 01/24/2015 6:02 PM TREAD BOOKER documented as of this encounter
--- OUTSIDE RECORDS SUMMARY | 2022-01-25 16:41 | XMS_ITS | Encounter Summary ---
:1955 Author Organization [facility] Address [address] [place] [address] Care Team Providers Name Role Phone Unavailable Primary Care Provider Unavailable Encounter Details Date Type Department Care Team Description 07/20/2015 - Hospital Encounter HX RST PAIN REHAB Jesse, 07/27/2015 PSYCH OP Colleen Polk M.D., Ph.D. [address] [place] [phone] Social History Tobacco Use Types Packs/Day Years [...] do you attend yazidi or Never 2021 jain services? Do you [...] Surgery Deon Herrera M.D. [address] [place], [place] [phone] (Wo rk) documented as of this encounter Visit Diagnoses Not on filedocumented in this encounter Additional Health Concerns Assessment Noted Time PHQ-9 Depression Total Score: 6 07/20/2015 8:59 AM CDT documented as of this encounter
--- OUTSIDE RECORDS SUMMARY | 2022-01-25 16:41 | XMS_ITS | Encounter Summary ---
:[address] [facility] Address [address] [place] [address] Care Team Providers Name Role Phone Unavailable Primary Care Provider Unavailable Encounter Details Date Type Department Care Team Description 07/24/2015 - Hospital Encounter HX RST PMR PT OT Denny Reddy 07/31/2015 L, P.T. [address] [place] [address] Social History Tobacco Use Types Packs/Day Years [...] do you attend restorationist or Never 2021 christian services? Do you [...] Orthopedic Surgery Deon Herrera M.D. [address] [place], [place] [phone] (Wo rk) documented as of this encounter Visit Diagnoses Not on filedocumented in this encounter Additional Health Concerns Assessment Noted Time PHQ-9 Depression Total Score: 6 07/20/2015 8:59 AM CDT documented as of this encounter
--- OUTSIDE RECORDS SUMMARY | 2022-01-25 16:41 | XMS_ITS | Encounter Summary ---
:1955 Author Organization [facility] Address [address] [place] [address] Care Team Providers Name Role Phone Unavailable Primary Care Provider Unavailable Encounter Details Date Type Department Care Team Description 07/25/2015 - Hospital Encounter HX RST PAIN REHAB Indy Ramos, 08/01/2015 PSYCH OP PASSENGER INTERLINE CLERK, REAL ESTATE MARKETING COORDINATOR, D.N.P., M.S.N. [address] [place] [phone] Social History Tobacco Use Types Packs/Day Years [...] do you attend druze or Never 2021 druze services? Do you [...] Orthopedic Surgery Deon Herrera M.D. [address] [place] [phone] (Wo rk) documented as of this encounter Visit Diagnoses Not on filedocumented in this encounter Additional Health Concerns Assessment Noted Time PHQ-9 Depression Total Score: 6 07/20/2015 8:59 AM CDT documented as of this encounter
--- OUTSIDE RECORDS SUMMARY | 2022-01-25 16:41 | XMS_ITS | Encounter Summary ---
:[address] [facility] Address [address] [place] [address] Care Team Providers Name Role Phone Unavailable Primary Care Provider Unavailable Encounter Details Date Type Department Care Team Description 07/25/2015 - Hospital Encounter HX RST PAIN REHAB Vipul Kelly, 08/01/2015 PSYCH OP FINNISH RUBBER, CAKE WINDER [address] [place] [address] Social History Tobacco Use Types Packs/Day Years [...] do you attend sabianism or Never 2021 mandaen services? Do you [...] Orthopedic Surgery Deon Herrera M.D. [address] [place], [place] [phone] (Wo rk) documented as of this encounter Visit Diagnoses Not on filedocumented in this encounter Additional Health Concerns Assessment Noted Time PHQ-9 Depression Total Score: 6 07/20/2015 8:59 AM CDT documented as of this encounter
--- OUTSIDE RECORDS SUMMARY | 2022-01-25 16:41 | XMS_ITS | Encounter Summary ---
:1955 Author Organization [facility] Address [address] [place] [address] Care Team Providers Name Role Phone Unavailable Primary Care Provider Unavailable Encounter Details Date Type Department Care Team Description 07/24/2015 - Hospital Encounter HX RST PAIN REHAB Antonio Castro 07/31/2015 PSYCH OP J, Ph.D., L.P. [address] [place] [phone] Social History Tobacco Use Types Packs/Day Years [...] do you attend christianity or Never 2021 worship services? Do you [...] Orthopedic Surgery Deon Herrera M.D. [address] [place], [place] [phone] (Wo rk) documented as of this encounter Visit Diagnoses Not on filedocumented in this encounter Additional Health Concerns Assessment Noted Time PHQ-9 Depression Total Score: 6 07/20/2015 8:59 AM CDT documented as of this encounter
--- OUTSIDE RECORDS SUMMARY | 2022-01-25 16:41 | XMS_ITS | Encounter Summary ---
:1955 Author Organization [facility] [place] [facility] Address [address] [place] [address] Care Team Providers Name Role Phone Unavailable Primary Care Provider Unavailable Encounter Details Date Type Department Care Team Description 07/21/2015 - Hospital Encounter HX RST PAIN REHAB Indy Ramos, 07/28/2015 PSYCH OP MENTAL HEALTH SOCIAL WORKER, RIP MACHINE OPERATOR, D.N.P., M.S.N. [address] [place] [phone] Social History Tobacco Use Types Packs/Day Years [...] do you attend cheondoism or Never 2021 druze services? Do you [...] Deon Herrera M.D. [address] [place] [phone] (Wo rk) documented as of this encounter Visit Diagnoses Not on filedocumented in this encounter Additional Health Concerns Assessment Noted Time PHQ-9 Depression Total Score: 6 07/20/2015 8:59 AM CDT documented as of this encounter
--- OUTSIDE RECORDS SUMMARY | 2022-01-25 16:41 | XMS_ITS | Encounter Summary ---
:1955 Author Organization [facility] Address [address] [place] [address] Care Team Providers Name Role Phone Unavailable Primary Care Provider Unavailable Encounter Details Date Type Department Care Team Description 07/21/2015 - Hospital Encounter HX RST PAIN REHAB Kaye Fitzpatrick 07/28/2015 PSYCH OP L, OVER THE HORIZON TARGETING SUPERVISOR, BOTTLE FILLER, R. N. [address] [facility] [address] PRATHER, Evaristo [address] [place], [place] [address] (Wo rk) Social History [...] do you attend buddhist or Never 2021 jainism services? Do you [...] Orthopedic Surgery Deon Herrera M.D. [address] [place], [place] [phone] (Wo rk) documented as of this encounter Visit Diagnoses Not on filedocumented in this encounter Additional Health Concerns Assessment Noted Time PHQ-9 Depression Total Score: 6 07/20/2015 8:59 AM CDT documented as of this encounter
--- OUTSIDE RECORDS SUMMARY | 2022-01-25 16:41 | XMS_ITS | Encounter Summary ---
:1955 Author Organization [facility] Address [address] [place] [address] Care Team Providers Name Role Phone Unavailable Primary Care Provider Unavailable Encounter Details Date Type Department Care Team Description 07/21/2015 - Hospital Encounter HX RST PAIN REHAB Indy Ramos, 07/28/2015 PSYCH OP WILDLIFE POLICY PROFESSIONAL, PHOTOENGRAVING HELPER, D.N.P., M.S.N. [address] [place] [phone] Social History Tobacco Use Types Packs/Day Years [...] do you attend judaism or Never 2021 zoroastrian services? Do you [...] Orthopedic Surgery Deon Herrera M.D. [address] [place] [phone] (Wo rk) documented as of this encounter Visit Diagnoses Not on filedocumented in this encounter Additional Health Concerns Assessment Noted Time PHQ-9 Depression Total Score: 6 07/20/2015 8:59 AM CDT documented as of this encounter
--- OUTSIDE RECORDS SUMMARY | 2022-01-25 16:41 | XMS_ITS | Encounter Summary ---
:1955 Author Organization [facility] Address [address] [place] [address] Care Team Providers Name Role Phone Unavailable Primary Care Provider Unavailable Encounter Details Date Type Department Care Team Description 07/20/2015 - Hospital Encounter HX RST PMR PT OT Denny Reddy 07/27/2015 L, P.T. [address] [place] [address] Social History Tobacco Use Types Packs/Day Years [...] do you attend gnosticist or Never 2021 alevism services? Do you [...] Orthopedic Surgery Deon Herrera M.D. [address] [place], [place] [phone] (Wo rk) documented as of this encounter Visit Diagnoses Not on filedocumented in this encounter Additional Health Concerns Assessment Noted Time PHQ-9 Depression Total Score: 6 07/20/2015 8:59 AM CDT documented as of this encounter
--- OUTSIDE RECORDS SUMMARY | 2022-01-25 16:41 | XMS_ITS | Encounter Summary ---
:1955 Author Organization [facility] Address [address] [place] [address] Care Team Providers Name Role Phone Unavailable Primary Care Provider Unavailable Encounter Details Date Type Department Care Team Description 07/24/2015 - Hospital Encounter HX RST PAIN REHAB Keaton Hale 07/31/2015 PSYCH OP P, Ph.D., L.P. [address] [place] [phone] Social History Tobacco Use Types Packs/Day Years [...] do you attend mandaeism or Never 2021 zoroastrian services? Do you [...] Orthopedic Surgery Deon Herrera M.D. [address] [place], [place] [phone] (Wo rk) documented as of this encounter Visit Diagnoses Not on filedocumented in this encounter Additional Health Concerns Assessment Noted Time PHQ-9 Depression Total Score: 6 07/20/2015 8:59 AM CDT documented as of this encounter
--- OUTSIDE RECORDS SUMMARY | 2022-01-25 16:42 | XMS_ITS | Encounter Summary ---
:1955 Author Organization [facility] Address [address] [place] [address] Care Team Providers Name Role Phone Unavailable Primary Care Provider Unavailable Encounter Details Date Type Department Care Team Description 12/29/2014 Hospital Encounter HX [facility] Guido Padilla M.D. [address] [place] [address], [address] [place] [address] (Wo rk) Social History Tobacco [...] Padilla M.D. - 12/29/2014 1:38 PM CDT [id number] CHIEF COMPLAINT/REASON FOR VISIT Follow up low [...] Caro to the [facility] [place]. I think that she would be an [...] PADILLA MD On: 01/02/2015 09:41 AM Source: [facility] MHSDOLBEYNONRADSYS Document Id: [id number] documented in this encounter Procedure Notes Yobani [...] PADILLA MD On: 01/02/2015 10:08 AM Source: [facility] MHSDOLBEYNONRADSYS Document Id: [id number] documented in this encounter Miscellaneous Notes Telephone Encounter - Nba Benson Jose Roberto - 01/19/2015 1:28 PM CST MRI From: NBA BENSON LPN ( Physical Medicine and Rehabilitation Staff) To: YAZ CARO Sent: 01/19/2015 13:28:33 GAMING PIT BOSS Subject: MRI Anmolpratibha Yaz, Sorry for the blank message, not sure what happened, I was just asking if you would be able to bringalong a copy of the MRI on CD when you come for your appointment. Thanks, ALICIA Fang Source: [facility] [employer] Document Id: [id number] Telephone Encounter - Nba Benson - 01/19/2015 7:49 AM CST RE: MRI From: NBA BENSON LPN ( Physical Medicine and Rehabilitation Staff) To: YAZ CARO Sent: 01/19/2015 07:49:33 GAMING PIT BOSS Subject: RE: MRI Glad it's scheduled already! Would you be able to bring the images from the MRI with on a CD to yourappointment? Nba Stanley From: YAZ CARO To: Physical Medicine and Rehabilitation Staff Sent: 01/18/2015 7:07:46 PM ([facility]-06:00) Central Time ([place] & [place]) Subject: RE: [...] Staff) To: YAZ CARO Sent: 01/18/2015 13:51:35 GAMING PIT BOSS Subject: RE: MRI Thanks Yaz, I will work on this, I do have to make sure an authorization isn't required by the insurance company, I'm sure it's not. I will then fax the order to [place], you will have to check with them to seeif they will have time to do both scans at that time. I will hopefully get the order finished and faxed this afternoon. Nba Stanley From: YAZ CARO To: Physical Medicine and Rehabilitation Staff Sent: 01/18/2015 1:47:43 PM ([facility]-06:00) Central Time ([place] & [place]) Subject: RE: MRI FridayJanuary 25, at 10:30 at the [facility]. Elise Stanley From: NBA BENSON LPN ( Physical Medicine and Rehabilitation Staff) To: YAZ CARO Sent: 01/18/2015 11:44:40 GAMING PIT BOSS Subject: MRI Anmolpratibha Mukherjee, Where are you having the MRI next week done at? I will submit the order form, they will contact you directly for scheduling then. ThanksNba LPN Source: [facility] POWERCHART Document Id: [id number] Electronically signed by Priya [facility] Facility[facility] Key Holder [id number] at 08/12/2016 3:47 AM CDT Telephone Encounter - Nba Benson - 01/18/2015 1:51 PM CST RE: MRI From: NBA BENSON LPN ( Physical Medicine and Rehabilitation Staff) To: YAZ CARO Sent: 01/18/2015 13:51:35 GAMING PIT BOSS Subject: RE: MRI Lizeth Yaz, I will work on this, I do have to make sure an authorization isn't required by the insurance company, I'm sure it's not. I will then fax the order to [place], you will have to check with them to seeif they will have time to do both scans at that time. I will hopefully get the order finished and faxed this afternoon. Thanks, Lacy From: YAZ CARO To: Physical Medicine and Rehabilitation Staff Sent: 01/18/2015 1:47:43 PM ([facility]-06:00) Central Time ([place] & [place]) Subject: RE: MRI FridayJanuary 25, at 10:30 at the [facility]. Elise Stanley From: NBA BENSON LPN ( Physical Medicine and Rehabilitation Staff) To: YAZ CARO Sent: 01/18/2015 11:44:40 GAMING PIT BOSS Subject: MRI Tarik Mukherjee, Where are you having the MRI next week done at? I will submit the order form, they will contact you directly for scheduling then. Nba Stanley LPN Source: [facility] [employer] SystemsCHART Document Id: [id number] Telephone Encounter - Nba Benson - 01/18/2015 1:48 PM CST FB MRI Document Contains Addenda Addendum by NBA BENSON LPN on 18 January 2015 14:28:13 GAMING PIT BOSS Order faxed. Addendum by SILAS MORENO on 18 January 2015 14:01:29 GAMING PIT BOSS From: SILAS MORENO ([facility]) To: Physical Medicine and Rehabilitation Staff; Sent: 01/18/2015 14:01:29 GAMING PIT BOSS Subject: RE: FB MRI Patient has bcbs cost sharing plan, no prior-auth needed. OK to schedule From: NBA BENSON LPN ( Physical Medicine and Rehabilitation Staff) To: [facility]; Sent: 01/18/2015 13:48:56 GAMING PIT BOSS Subject: FB MRI Patient Referred to Provider/Facility: [facility] Ordering Provider: [facility] Ordered: MRI Lumbar Spine Diagnosis: low back pain Source: [facility] [employer] SystemsCHART Document Id: [id number] Telephone Encounter - Nba Benson - 01/18/2015 11:44 AM CST MRI From: NBA BENSON LPN ( Physical Medicine and Rehabilitation Staff) To: YAZ CARO Sent: 01/18/2015 11:44:40 GAMING PIT BOSS Subject: MRI Tarik Mukherjee, Where are you having the MRI next week done at? I will submit the order form, they will contact you directly for scheduling then. Thanks, ALICIA Fang Source: [facility] [employer] Document Id: [id number] Telephone Encounter - Nba Benson - 01/18/2015 7:50 AM CST FW: Follow Up Injection Document Contains Addenda Addendum by YOBANI PADILLA MD on 18 January 2015 11:43:06 GAMING PIT BOSS From: YOBANI PADILLA MD To: Physical Medicine and Rehabilitation Staff; YAZ CARO Sent: 01/18/2015 11:43:06 GAMING PIT BOSS Subject: RE: Follow Up Injection Ms. Caro, [...] To: YOBANI PADILLA MD; Sent: 01/18/2015 07:50:28 GAMING PIT BOSS Subject: FW: Follow Up Injection From: YAZ CARO To: Physical Medicine and Rehabilitation Staff Sent: 01/17/2015 9:41:11 PM ([facility]-06:00) Central Time ([place] & [place]) Subject: RE: Follow Up Injection Dear Dr. Padilla Because of breathing difficulties due to muscle weakness, I saw neurologist Dr. Ziggy Cabello in [place] yesterday. He gave me a thorough total exam and suggested I have another MRI done of the lowerspine. He suggested that my continuing hip and muscle pain on the left might be due to a pinched nerve. You can ask [facility] in [place] for a copy of his findings or talk to him directly. I am having an MRI done of the upper spine next Friday. If you order one of the lower spine before then, we can do it all together in one [facility] (or some such). Thank you for your attention to this matter, Yaz Caro From: NBA BENSON LPN ( Physical Medicine and Rehabilitation Staff) To: YAZ CARO Sent: 01/16/2015 07:57:40 GAMING PIT BOSS Subject: RE: Follow Up Injection I'm glad [...] area feeling? Did it help? Thanks, Lacy, COATING OPERATOR Source: [facility] [employer]inel SystemsCHART Document Id: [id number] Telephone Encounter - Nba Benson - 01/16/2015 7:57 AM CST RE: Follow Up Injection From: NBA BENSON LPN ( Physical Medicine and Rehabilitation Staff) To: YAZ CARO Sent: 01/16/2015 07:57:40 GAMING PIT BOSS Subject: RE: Follow Up Injection I'm glad [...] Did it help? Nba Stanley LPN Source: [facility] [employer] SystemsCHART Document Id: [id number] Telephone Encounter - Nba Benson - 01/13/2015 10:36 AM CDT Follow Up Injection From: NBA BENSON LPN ( Physical Medicine and Rehabilitation Staff) To: YAZ CARO Sent: 01/13/2015 10:36:14 CDT Subject: Follow Up Injection Tarik Mukherjee, I am following up in regards to the injection you had on the left hip, how is the area feeling? Did it help? Thanks, ALICIA Fang Source: [facility] POWERCHART Document Id: [id number] Miscellaneous - Yobani Padilla M.D. - 12/29/2014 2:58 PM CDT Ambulatory Patient Summary [address] [id number] Visit Information Name: YAZ MAYERS [facility] Number: [id number] Current Date: 12/29/2014 14:58:18 Physicians Attending Provider: YOBANI PADLILA MD Primary Care Provider: PCP, ELSEWHERE YAZ [...] if you dont have one. Go to [email or web address] and click on Create Your Account. Then, follow the directions to complete the online form. Youll be asked for your [facility] number which you can find at the top of this document. Your Goals/Additional instructions: Source: [facility] POWERCHART Document Id: [id number] Miscellaneous - Yobani Padilla M.D. - 12/29/2014 2:58 PM CDT Ambulatory Discharge Medication List [address] [id number] Visit Information Name: YAZ MAYERS [facility] Number: [id number] Visit Date: 12/29/2014 14:58:16 [...] MD Signed On:29-DEC-2014 14:57:45 Additional Information: Source: [facility] POWERCHART Document Id: [id number] Miscellaneous - Nba Benson - 12/29/2014 2:57 PM CDT Reminder Msg Document Contains Addenda Addendum by NBA BENSON LPN on 16 January 2015 07:57:00 GAMING PIT BOSS From: NBA BENSON LPN ( Physical Medicine and Rehabilitation Staff) To: YOBANI PADILLA MD; Sent: 01/16/2015 07:57:00 GAMING PIT BOSS Show up: 01/16/2015 07:56:00 GAMING PIT BOSS Subject: RE: Reminder Msg Per message back [...] Patient ( ) ( ) Call for Vending Machine Coin Collector ( ) Follow up on Results ( ) Other: PROVIDER: ( ) Call Physician ( ) Call Pharmacist ( ) Call Lab ( ) Other: Special Instructions: Comments: Source: [facility] [employer] Document Id: [id number] Nba Tariq - 12/29/2014 1:57 PM CDT Adult Crm Consultant Intake/History Adult Crm Consultant Intake/History Entered On: 12/29/2014 14:00 CDT Performed [...] Preferred Communication Mode : Verbal Languages : Namibian Is Patient Female and 13-50 no hysterectomy : No NBA BENSON LPN - 12/29/2014 13:57 CDT Subjective Pain Symptoms : No NBA BENSON LPN - 12/29/2014 13:57 CDT Dependent Habits Tobacco Use/Currently Using : No Exposure to Tobacco Smoke : Other: never Smoking Status : Never smoker NBA BENSON LPN - 12/29/2014 13:57 CDT Source: [facility] [employer] Document Id: [id number] CDT!21 Yobani Brady M.D. - 12/29/2014 12:00 AM CDT [id number] December 29, 2014 [facility] [address] [place] [id number] RE: Yaz Multani : 1955 To Whom [...] M.D. Department of Physical Medicine and Rehabilitation [facility] [place] [address] Phone: tc Electronically Signed By: YOBANI PADILLA MD On: 01/02/2015 09:33 AM Modified by and Electronically Signed by: YOBANI PADILLA MD On: 01/02/2015 09:33 AM Source: [facility] MHSDOLBEYNONRADSYS Document Id: [id number] documented in this encounter Plan of Treatment Upcoming Encounters Date Type Specialty Care Team Description 02/04/2022 Office Visit Orthopedic Surgery Deon Herrera M.D. [address] [place], [place] [phone] (Wo rk) documented as of this encounter Visit Diagnoses Not on filedocumented in this encounter
--- OUTSIDE RECORDS SUMMARY | 2022-01-25 16:42 | XMS_ITS | Encounter Summary ---
:1955 Author Organization [facility] Address [address] [place] [address] Care Team Providers Name Role Phone Unavailable Primary Care Provider Unavailable Encounter Details Date Type Department Care Team Description 09/09/2013 Hospital Encounter HX [facility] Guido Man M.D. [address] [place] [address], [address] [place] [address] (Wo rk) Social History Tobacco [...] do you attend uatsdin or Never 2021 jewish services? Do you [...] Man M.D. - 09/09/2013 11:06 AM CDT [id number] CHIEF COMPLAINT/REASON FOR VISIT Followup low back [...] MAN MD On: 09/15/2013 12:12 PM Source: [facility] MHSDOLBEYNONRADSYS Document Id: [id number] documented in this encounter Miscellaneous Notes Miscellaneous [...] Patient ( ) ( ) Call for Tire Buster ( ) Follow up on Results ( ) Other: PROVIDER: ( ) Call Physician ( ) Call Pharmacist ( ) Call Lab ( ) Other: Special Instructions: Comments: Source: [facility] POWERCHART Document Id: [id number] Electronically signed by Priya [facility] Airline Pilot/First Officer [id number] at 08/13/2016 2:29 AM CDT Miscellaneous - Yobani Man M.D. - 09/09/2013 11:49 AM CDT Ambulatory Patient Summary [address] [id number] Visit Information Name: FANTA SANTAMARIA [facility] Number: [id number] Current Date: 09/09/2013 11:49:41 [...] appointment detail needed. Your Goals/Additional instructions: Source: [facility] POWERCHART Document Id: [id number] Miscellaneous - Yobani Man M.D. - 09/09/2013 11:49 AM CDT Ambulatory Discharge Medication List [address] [id number] Visit Information Name: FANTA SANTAMARIA [facility] Number: [id number] Visit Date: 09/09/2013 11:49:38 [...] MD Signed On:09-SEP-2013 11:49:14 Additional Information: Source: [facility] POWERCHART Document Id: [id number] Miscellaneous - Nba Benson - 09/09/2013 11:16 AM CDT Adult Cost Manager Intake/History Adult Cost Manager Intake/History Entered On: 09/09/2013 11:18 CDT Performed [...] Preferred Communication Mode : Verbal Languages : Tristanian NBA BENSON - 09/09/2013 11:16 CDT Subjective Pain Symptoms : No NBA BENSON - 09/09/2013 11:16 CDT Dependent Habits Tobacco Use/Currently Using : No Exposure to Tobacco Smoke : Other: never Smoking Status : Never smoker NBA BENSON - 09/09/2013 11:16 CDT [facility] Document Id: [id number] CDT!20 documented in this encounter Plan of Treatment Upcoming Encounters Date Type Specialty Care Team Description 02/04/2022 Office Visit Orthopedic Surgery Deon Herrera M.D. [address] [phone] (Wo rk) documented as of this encounter Visit Diagnoses Not on filedocumented in this encounter
--- OUTSIDE RECORDS SUMMARY | 2022-01-25 16:42 | XMS_ITS | Encounter Summary ---
:1955 Author Organization [facility] Address [address] [place] [address] Care Team Providers Name Role Phone Unavailable Primary Care Provider Unavailable Encounter Details Date Type Department Care Team Description 10/26/2014 Hospital Encounter HX [facility] Guido Man M.D. [address] [place] [address], [address] [place] [address] (Wo rk) Social History Tobacco [...] do you attend evangelical or Never 2021 adventism services? Do you [...] Man M.D. - 10/26/2014 10:12 AM CDT [id number] CHIEF COMPLAINT/REASON FOR VISIT Low back and [...] MAN MD On: 10/27/2014 08:54 AM Source: [facility] MHSDOLBEYNONRADSYS Document Id: [id number] documented in this encounter Miscellaneous Notes Miscellaneous - Yobani Man M.D. - 10/26/2014 11:01 AM CDT Ambulatory Patient Summary [address] [id number] Visit Information Name: FANTA MAYERS [facility] Number: [id number] Current Date: 10/26/2014 11:01:23 Physicians [...] you dont have one. Go to [email or web address] and click on Create Your Account. Then, follow the directions to complete the online form. Youll be asked for your [facility] number which you can find at the top of this document. Your Goals/Additional instructions: Source: [facility] POWERCHART Document Id: [id number] Miscellaneous - Yobani Man M.D. - 10/26/2014 11:01 AM CDT Ambulatory Discharge Medication List [address] [id number] Visit Information Name: FANTA MAYERS [facility] Number: [id number] Visit Date: 10/26/2014 11:01:21 Attending [...] MD Signed On:26-OCT-2014 11:00:54 Additional Information: Source: [facility] [employer] Document Id: [id number] Miscellaneous - Eitan Almendarez CCandyMAris - 10/26/2014 10:32 AM CDT Adult Dyeing Machine Tender Intake/History Adult Dyeing Machine Tender Intake/History Entered On: 10/26/2014 10:33 CDT Performed [...] Information Given By : Patient Languages : Lao Is Patient Female and 13-50 no hysterectomy : No EITAN ALMENDAREZ - 10/26/2014 10:32 CDT Subjective Pain Symptoms : No EITAN ALMENDAREZ - 10/26/2014 10:32 CDT Dependent Habits Tobacco Use/Currently Using : No Exposure to Tobacco Smoke : Other: never Smoking Status : Never smoker EITAN ALMENDAREZ - 10/26/2014 10:32 CDT Source: [facility] [employer] Document Id: [id number] CDT!20 documented in this encounter Plan of Treatment Upcoming Encounters Date Type Specialty Care Team Description 02/04/2022 Office Visit Orthopedic Surgery eDon Herrera M.D. [address] [place] [phone] (Wo rk) documented as of this encounter Visit Diagnoses Not on filedocumented in this encounter
--- OUTSIDE RECORDS SUMMARY | 2022-01-25 16:42 | XMS_ITS | Encounter Summary ---
:1955 Author Organization [facility] Address [address] [place] [address] Care Team Providers Name Role Phone Unavailable Primary Care Provider Unavailable Encounter Details Date Type Department Care Team Description 06/25/2013 Hospital Encounter HX NO MAPPING Clay Man M.D. [address] [place] [address] , [address] [place] [address] (Wo rk) Social History Tobacco [...] do you attend sikhism or Never 2021 baptist services? Do you [...] Surgery Deon Herrera M.D. [address] [place], [place] [phone] (Wo rk) documented as of this encounter Visit Diagnoses Not on filedocumented in this encounter
--- OUTSIDE RECORDS SUMMARY | 2022-01-25 16:42 | XMS_ITS | Encounter Summary ---
:1955 Author Organization [facility] Address [address] [place] [address] Care Team Providers Name Role Phone Unavailable Primary Care Provider Unavailable Encounter Details Date Type Department Care Team Description 01/30/2015 Hospital Encounter HX [facility] Guido Man M.D. [address] [place] [address], [address] [place] [address] (Wo rk) Social History Tobacco [...] do you attend rastafarian or Never 2021 yarsanism services? Do you [...] Comments Blood Pressure 120/64 01/30/2015 2:20 PM FIRE TECHNICIAN Pulse - - Temperature - - Respiratory Rate - - Oxygen Saturation - - Inhaled Oxygen Concentration - - Weight 121 kg (267 lb 10.2 oz) 01/30/2015 2:20 PM FIRE TECHNICIAN Height - - Body Mass Index 39.64 [...] Man M.D. - 01/30/2015 2:11 PM CST [id number] CHIEF COMPLAINT/REASON FOR VISIT Followup low back [...] She also has a meeting with a bus escort and is going to be using a [...] MAN MD On: 02/06/2015 05:11 PM Source: [facility] MHSDOLBEYNONRADSYS Document Id: [id number] TECHNICIAN documented in this encounter Miscellaneous Notes Miscellaneous - Samara Mishra R.N. - 02/21/2015 8:52 AM CST lyrica Document Contains Addenda Addendum by SAMARA MISHRA RN on 21 February 2015 14:44:35 FIRE TECHNICIAN Called into [facility] Addendum by YOBANI MAN MD on 21 February 2015 13:34:09 FIRE TECHNICIAN From: YOBANI MAN MD To: SAMARA MISHRA RN; Sent: 02/21/2015 13:34:09 FIRE TECHNICIAN Subject: RE: lyrica Please call. Thanks. Addendum by YOBANI MAN MD on 21 February 2015 13:34:02 FIRE TECHNICIAN Submitted: Order:pregabalin (Lyrica 150 mg oral capsule) 1 cap(s) PO 2xDay Qty: 60 cap(s) Refills: 5 Substitutions Allowed Don't Print - called to pharmacy (Rx) Signed by YOBANI MAN MD 02/21/2015 13:33:53 From: SAMARA MISHRA RN To: YOBANI MAN MD; Sent: 02/21/2015 08:52:38 FIRE TECHNICIAN Subject: lyrica Caller is: ( ) Patient ( ) Mother ( ) Father ( ) Spouse ( ) Daughter ( ) Son ( [facility]/[phone]; fax [phone] ) Pharmacy ( ) Other: Provider: juan Pharmacy: Name of Medications Needing Refill: lyrica 150 mg Last Refill Date: 01/19/15 qty 60 Additional Information: 1 cap po BID Last / Future Appointment: 01/30/15; 03/02/15 Disposition: ( x ) Send to Pharmacy ( ) Call to Pharmacy ( ) Patient will fern picker Script ( ) Mail Rxto Patient Source: [facility] POWERCHART Document Id: [id number] Electronically signed by Conversion, [facility] Dramatic Reader [id number] at 08/12/2016 6:11 AM CDT Miscellaneous - Yobani Man M.D. - 01/30/2015 3:09 PM CST Ambulatory Patient Summary [facility] [address] [place] [id number] Visit Information Name: YAZ CARO [facility] Number: [id number] Current Date: 01/30/2015 15:09:48 Physicians [...] if you dont have one. Go to [email or web address] and click on Create Your Account. Then, follow the directions to complete the online form. Youll be asked for your [facility] number which you can find at the top of this document. Your Goals/Additional instructions: Source: [facility] POWERCHART Document Id: [id number] TECHNICIAN Miscellaneous - Yobani Man M.D. - 01/30/2015 3:09 PM CST Ambulatory Discharge Medication List [address] [id number] Visit Information Name: YAZ CARO [facility] Number: [id number] Visit Date: 01/30/2015 15:09:46 Attending [...] MD Signed On:30-JAN-2015 15:09:16 Additional Information: Source: [facility] POWERCHART Document Id: [id number] TECHNICIAN Miscellaneous - Nba Lockett - 01/30/2015 2:20 PM CST Adult Hydrochloric Area Supervisor Intake/History Adult Hydrochloric Area Supervisor Intake/History Entered On: 01/30/2015 14:22 FIRE TECHNICIAN Performed On: 01/30/2015 14:20 FIRE TECHNICIAN by NBA LOCKETT LPN Intake Actual Weight : 121.4 kg(Converted to: 267 lb 10 oz) Dosing Weight Clinic : 121.4 kg NBA LOCKETT LPN - 01/30/2015 14:22 FIRE TECHNICIAN Systolic Blood Pressure : 120 mmHg Diastolic Blood Pressure : 64 mmHg NIBP Mean : 83 mmHg BP Location : Left upper extremity Blood Pressure Cuff Size : Regular Weight Source : Standing scale NBA LOCKETT LPN - 01/30/2015 14:20 FIRE TECHNICIAN General Info Information Given By : Patient Preferred Communication Mode : Verbal Languages : Turkmen Is Patient Female and 13-50 no hysterectomy : No NBA LOCKETT LPN - 01/30/2015 14:20 FIRE TECHNICIAN Subjective Pain Symptoms : No NBA LOCKETT LPN - 01/30/2015 14:20 FIRE TECHNICIAN Dependent Habits Tobacco Use/Currently Using : No Exposure to Tobacco Smoke : Other: never Smoking Status : Never smoker NBA LOCKETT LPN - 01/30/2015 14:20 FIRE TECHNICIAN Source: [employer] POWERCHART Document Id: [id number] FIRE TECHNICIAN!4 TECHNICIAN documented in this encounter Plan of Treatment Upcoming Encounters Date Type Specialty Care Team Description 02/04/2022 Office Visit Orthopedic Surgery Deon Herrera M.D. [address] [place], [place] [phone] (Wo rk) documented as of this encounter Visit Diagnoses Not on filedocumented in this encounter Additional Health Concerns Assessment Noted Time PHQ-9 Depression Total Score: 4 01/24/2015 6:02 PM FIRE TECHNICIAN documented as of this encounter
--- OUTSIDE RECORDS SUMMARY | 2022-01-25 16:42 | XMS_ITS | Encounter Summary ---
:1955 Author Organization [facility] Address [address] [place] [address] Care Team Providers Name Role Phone Unavailable Primary Care Provider Unavailable Encounter Details Date Type Department Care Team Description 08/24/2014 Hospital Encounter HX [facility] Guido Man M.D. [address] [place] [address], [address] [place] [address] (Wo rk) Social History Tobacco [...] do you attend yazidism or Never 2021 rastafarian services? Do you [...] Man M.D. - 08/24/2014 2:43 PM CDT [id number] CHIEF COMPLAINT/REASON FOR VISIT Low back and left lower extremity pain. HISTORY OF PRESENT ILLNESS Ms. Adames returns today in followup. She had a left L4 transforaminal corticosteroid injection performed, which she reports was very helpful for her. [facility]. She [...] Ms. Adames involved in physical therapy at [facility] where she has worked successfully [...] MAN MD On: 08/29/2014 09:52 AM Source: [facility] MHSDOLBEYNONRADSYS Document Id: [id number] documented in this encounter Miscellaneous Notes Miscellaneous - Ann-Marie Jung, RCandyN. - 10/10/2014 11:22 AM CDT *Medication Refill Msg Document Contains Addenda Addendum by ANN-MARIE JUNG on 10 October 2014 16:05:29 CDT [facility]. Addendum by YOBANI MAN MD on [...] Call to Pharmacy ( ) Patient will filter press supervisor Script ( ) Mail Rx to Patient Source: [facility] POWERCHART Document Id: [id number] Electronically signed by Conversion, [facility] Control Area Operator [id number] at 08/12/2016 2:52 PM CDT Miscellaneous - Yobani Man M.D. - 08/24/2014 3:48 PM CDT Ambulatory Patient Summary [address] [id number] [facility] Information [facility]: [facility] POWERCHART Document Id: [id number] Miscellaneous - Yobani Man M.D. - 08/24/2014 3:48 PM CDT Ambulatory Discharge Medication List [address] [id number] Visit Information Name: [facility] MD Signed On:24-AUG-2014 15:48:21 Additional Information: Source: [facility] BiOWiSH Document Id: [id number] Miscellaneous - Nba Benson - 08/24/2014 3:03 PM CDT Adult Filter Cloth Maker Intake/History Adult Filter Cloth Maker Intake/History Entered On: 08/24/2014 15:05 CDT Performed [...] Preferred Communication Mode : Verbal Languages : New Zealander Is Patient Female and 13-50 no hysterectomy : No NBA BENSON - 08/24/2014 15:03 CDT Subjective Pain Symptoms : No NBA BENSON - 08/24/2014 15:03 CDT Dependent Habits Tobacco Use/Currently Using : No Exposure to Tobacco Smoke : Other: never Smoking Status : Never smoker NBA BENSON - 08/24/2014 15:03 CDT [facility] Document Id: [id number] CDT!20 documented in this encounter Plan of Treatment Upcoming Encounters Date Type Specialty Care Team Description 02/04/2022 Office Visit Orthopedic Surgery Deon Herrera M.D. [address] [place] [address] [phone] (Wo rk) documented as of this encounter Visit Diagnoses Not on filedocumented in this encounter
--- OUTSIDE RECORDS SUMMARY | 2022-01-25 16:42 | XMS_ITS | Encounter Summary ---
:1955 Author Organization [facility] Address [address] [place] [address] Care Team Providers Name Role Phone Unavailable Primary Care Provider Unavailable Encounter Details Date Type Department Care Team Description 03/02/2015 Hospital Encounter HX [facility] Guido Man M.D. [address] [place] [address], [address] [place] [address] (Wo rk) Social History Tobacco [...] do you attend scientologist or Never 2021 druze services? Do you [...] Comments Blood Pressure 128/72 03/02/2015 3:18 PM ASSEMBLED WOOD PRODUCTS REPAIRER Pulse - - Temperature - - Respiratory Rate - - Oxygen Saturation - - Inhaled Oxygen Concentration - - Weight 118 kg (260 lb 9.3 oz) 03/02/2015 3:18 PM ASSEMBLED WOOD PRODUCTS REPAIRER Height - - Body Mass Index 38.6 [...] Man M.D. - 03/02/2015 3:01 PM CST [id number] CHIEF COMPLAINT/REASON FOR VISIT Followup low back [...] MAN MD On: 03/07/2015 10:31 AM Source: [facility] MHSDOLBEYNONRADSYS Document Id: [id number] MBLED WOOD PRODUCTS REPAIRER documented in this encounter Miscellaneous Notes Miscellaneous - Yobani Man M.D. - 03/02/2015 3:57 PM CST Ambulatory Patient Summary [address] [id number] Visit Information Name: KHRISMATTSONFANTA ASHBY [facility] Number: [id number] Current Date: 03/02/2015 15:57:31 Physicians [...] online form. Youll be asked for your [facility] number which you can find at the top of this document. Your Goals/Additional instructions: Source: [facility] POWERCHART Document Id: [id number] MBLED WOOD PRODUCTS REPAIRER Miscellaneous - Yobani Man M.D. - 03/02/2015 3:57 PM CST Ambulatory Discharge Medication List [address] [id number] Visit Information Name: FANTA CARO [facility] Number: [id number] Visit Date: 03/02/2015 15:57:30 Attending [...] MD Signed On:02-MAR-2015 15:57:01 Additional Information: Source: [facility] SpeechTrans Document Id: [id number] MBLED WOOD PRODUCTS REPAIRER Miscellaneous - Wilda Giraldo, L.P.N. - 03/02/2015 3:18 PM CST Adult Gem Carver Intake/History Adult Gem Carver Intake/History Entered On: 03/02/2015 15:20 ASSEMBLED WOOD PRODUCTS REPAIRER Performed On: 03/02/2015 15:18 ASSEMBLED WOOD PRODUCTS REPAIRER by WILDA GIRALDO LPN Intake Systolic Blood Pressure : 128 mmHg Diastolic Blood Pressure : 72 mmHg NIBP Mean : 91 mmHg BP Location : Left upper extremity Blood Pressure Cuff Size : Large Actual Weight : 118.2 kg(Converted to: 260 lb 9 oz) Dosing Weight Clinic : 118.2 kg WILDA GIRALDO LPN - 03/02/2015 15:18 ASSEMBLED WOOD PRODUCTS REPAIRER General Info Information Given By : Patient Languages : Samoan Is Patient Female and 13-50 no hysterectomy : No WILDA GIRALDO LPN - 03/02/2015 15:18 ASSEMBLED WOOD PRODUCTS REPAIRER Subjective Pain Symptoms : No WILDA GIRALDO LPN - 03/02/2015 15:18 ASSEMBLED WOOD PRODUCTS REPAIRER Dependent Habits Exposure to Tobacco Smoke : Other: never Smoking Status : Never smoker Tobacco 2A : No WILDA GIRALDO LPN - 03/02/2015 15:18 ASSEMBLED WOOD PRODUCTS REPAIRER Source: [facility] POWERCHART Document Id: [id number] ASSEMBLED WOOD PRODUCTS REPAIRER!19 MBLED WOOD PRODUCTS REPAIRER documented in this encounter Plan of Treatment Upcoming Encounters Date Type Specialty Care Team Description 02/04/2022 Office Visit Orthopedic Surgery Deon Herrera M.D. [address] [place], [place] [phone] (Wo rk) documented as of this encounter Visit Diagnoses Not on filedocumented in this encounter Additional Health Concerns Assessment Noted Time PHQ-9 Depression Total Score: 4 01/24/2015 6:02 PM ASSEMBLED WOOD PRODUCTS REPAIRER documented as of this encounter
--- OUTSIDE RECORDS SUMMARY | 2022-01-25 16:42 | XMS_ITS | Encounter Summary ---
:1955 Author Organization [facility] Address [address] [place] [address] Care Team Providers Name Role Phone Unavailable [...] do you attend orthodox or Never 2021 faith services? Do you [...] Orthopedic Surgery Deon Herrera M.D. [address] [place], [place] [phone] (Wo rk) documented as of this encounter Visit Diagnoses Not on filedocumented in this encounter
--- OUTSIDE RECORDS SUMMARY | 2022-01-25 16:42 | XMS_ITS | Encounter Summary ---
:1955 Author Organization [facility] Address [address] [place] [address] Care Team Providers Name Role Phone Unavailable Primary Care Provider Unavailable Encounter Details Date Type Department Care Team Description 09/26/[address] [facility] Guido Paige M.D. [address] [place] [address], [address] [place] [address] (Wo rk) Social History Tobacco [...] do you attend adventist or Never 2021 judaism services? Do you [...]
--- OUTSIDE RECORDS SUMMARY | 2022-01-25 16:42 | XMS_ITS | Encounter Summary ---
:1955 Author Organization [facility] Address [address] [place] [address] Care Team Providers Name Role Phone Unavailable Primary Care Provider Unavailable Encounter Details Date Type Department Care Team Description 09/26/2014 Hospital Encounter [facility]X [facility] Guido Man M.D. [address] [place] [address], [address] [place] [address] (Wo rk) Social History Tobacco [...] do you attend mormon or Never 2021 scientology services? Do you [...] Man M.D. - 09/26/2014 10:40 AM CDT [id number] CHIEF COMPLAINT/REASON FOR VISIT Followup low back [...] MAN MD On: 09/27/2014 01:11 PM Source: [facility] MHSDOLBEYNONRADSYS Document Id: [id number] documented in this encounter Miscellaneous Notes Miscellaneous - Yobani Man M.D. - 09/26/2014 11:23 AM CDT Ambulatory Patient Summary [facility] [address] [place] [id number] Visit Information Name: NICOLASLuciano MULTANI YAZ [facility] Number: [id number] Current Date: 09/26/2014 11:23:01 Physicians [...] dont have one. Go to [email or web address] and click on Create Your Account. Then, follow the directions to complete the online form. Youll be asked for your [facility] number which you can find at the top of this document. Your Goals/Additional instructions: Source: [facility] POWERCHART Document Id: [id number] Miscellaneous - Yobani Man M.D. - 09/26/2014 11:23 AM CDT Ambulatory Discharge Medication List [address] [id number] Visit Information Name: YAZ MAYERS [facility] Number: [id number] Visit Date: 09/26/2014 11:23:00 Attending [...] MD Signed On:26-SEP-2014 11:20:43 Additional Information: Source: [facility] [employer] Document Id: [id number] Miscellaneous - Kate Giraldo L.P.NCandy - 09/26/2014 10:46 AM CDT Adult Filler Machine Operator Intake/History Adult Filler Machine Operator Intake/History Entered On: 09/26/2014 10:48 [...] Information Given By : Patient Languages : Swiss Is Patient Female and 13-50 no hysterectomy : No KATE GIRALDO LPN - 09/26/2014 10:46 CDT Subjective Pain Symptoms : No KATE GIRALDO LPN - 09/26/2014 10:46 CDT Dependent Habits Tobacco Use/Currently Using : No Exposure to Tobacco Smoke : Other: never Smoking Status : Never smoker KATE GIRALDO LPN - 09/26/2014 10:46 CDT Source: [facility] [employer] Document Id: [id number] CDT!19 documented in this encounter Plan of Treatment Upcoming Encounters Date Type Specialty Care Team Description 02/04/2022 Office Visit Orthopedic Surgery Deon Herrera M.D. [address] [place] [phone] (Wo rk) documented as of this encounter Visit Diagnoses Not on filedocumented in this encounter
--- OUTSIDE RECORDS SUMMARY | 2022-01-25 16:42 | XMS_ITS | Encounter Summary ---
:1955 Author Organization [facility] Address [address] [place] [address] Care Team Providers Name Role Phone Unavailable Primary Care Provider Unavailable Encounter Details Date Type Department Care Team Description 07/17/2015 Hospital Encounter HX [facility] Guido Man M.D. [address] [place] [address], [address] [place] [address] (Wo rk) Social History Tobacco [...] do you attend sikh or Never 2021 sabianism services? Do you [...] Man M.D. - 07/17/2015 2:15 PM CDT [id number] CHIEF COMPLAINT/REASON FOR VISIT Low back pain [...] to begin the [facility] in [place] on Friday, July 18, which I think [...] MAN MD On: 07/19/2015 10:43 AM Source: [facility] MHSDOLBEYNONRADSYS Document Id: [id number] documented in this encounter Procedure Notes Yobani [...] MAN MD On: 07/20/2015 11:39 AM Source: [facility] MHSDOLBEYNONRADSYS Document Id: [id number] documented in this encounter Miscellaneous Notes Miscellaneous [...] Patient ( ) ( ) Call for Edge Blacker ( ) Follow up on Results ( ) Other: PROVIDER: ( ) Call Physician ( ) Call Pharmacist ( ) Call Lab ( ) Other: Special Instructions: Comments: Source: [facility] POWERCHART Document Id: [id number] Miscellaneous - Yobani Man M.D. - 07/17/2015 3:15 PM CDT Ambulatory Patient Summary [facility] [address] [place] [id number] Visit Information Name: YAZ CARO [facility] Number: [id number] Current Date: 07/17/2015 15:15:29 Physicians [...] if you dont have one. Go to [email or web address] and click on Create Your Account. Then, follow the directions to complete the online form. Youll be asked for your [facility] number which you can find at the top of this document. Your Goals/Additional instructions: Source: [facility] POWERCHART Document Id: [id number] Miscellaneous - Yobani Man M.D. - 07/17/2015 3:15 PM CDT Ambulatory Discharge Medication List [address] [id number] Visit Information Name: YAZ CARO [facility] Number: [id number] Visit Date: 07/17/2015 15:15:28 Attending [...] MD Signed On:17-JUL-2015 15:14:57 Additional Information: Source: [facility] POWERCHART Document Id: [id number] Miscellaneous - Kate Giraldo, LCandyP.N. - 07/17/2015 2:26 PM CDT Adult Pickling Grader Intake/History Adult Pickling Grader Intake/History Entered On: 07/17/2015 14:27 CDT Performed [...] Information Given By : Patient Languages : Solomon Islander Is Patient Female and 13-50 no [...] GIRALDO LPN - 07/17/2015 14:26 CDT Source: [place] Document Id: [id number] CDT!22 documented in this encounter Plan of Treatment Upcoming Encounters Date Type Specialty Care Team Description 02/04/2022 Office Visit Orthopedic Surgery Deon Herrera M.D. [address] [place], [place] [phone] (Wo rk) documented as of this encounter Visit Diagnoses Not on filedocumented in this encounter Additional Health Concerns Assessment Noted Time PHQ-9 Depression Total Score: 4 01/24/2015 6:02 PM DELIVERY AND MAIL SORTER documented as of this encounter
--- OUTSIDE RECORDS SUMMARY | 2022-01-25 16:42 | XMS_ITS | Encounter Summary ---
:1955 Author Organization [facility] Address [address] [place] [address] Care Team Providers Name Role Phone Unavailable Primary Care Provider Unavailable Encounter Details Date Type Department Care Team Description 03/21/2014 Hospital Encounter HX [facility] Guido Man M.D. [address] [place] [address], [address] [place] [address] (Wo rk) [...] do you attend pentecostalism or Never 2021 druze services? Do you [...] Comments Blood Pressure 124/70 03/21/2014 3:47 PM MEN'S GARMENT FITTER Pulse - - Temperature - - Respiratory Rate - - Oxygen Saturation - - Inhaled Oxygen Concentration - - Weight 120 kg (264 lb 8.8 oz) 03/21/2014 3:47 PM MEN'S GARMENT FITTER Height - - Body Mass Index 39.18 [...] Man M.D. - 03/21/2014 3:27 PM CST [id number] CHIEF COMPLAINT/REASON FOR VISIT Follow up low back pain. New issue of left chest wall pain, left shoulder pain and bilateral foot pain. HISTORY OF PRESENT ILLNESS Ms. Adames returns today in followup. She had right L2-L3 and L3-L4 radiofrequency denervation performed on November 09 and left L2-L3 and L3-L4 facet joint radiofrequency denervation performed at [place] on November 18 and has found both [...] pain. She did see Dr. Emery in [place] and had EKG performed as well as [...] time 30 minutes, counseling time 20 minutes. Yoabni Man M.D./veena Electronically Signed By: YOBANI MAN MD On: 03/24/2014 01:50 PM Modified by and Electronically Signed by: YOBANI MAN MD On: 03/24/2014 01:50 PM Source: [facility] MHSDOLBEYNONRADSYS Document Id: [id number] 'S GARMENT FITTER documented in this encounter Miscellaneous Notes Miscellaneous - Yobani Man M.D. - 03/21/2014 4:40 PM CST Ambulatory Patient Summary [address] [id number] Visit Information Name: YAZ MAYERS [facility] Number: [id number] Current Date: 03/21/2014 16:40:21 Physicians [...] appointment detail needed. Your Goals/Additional instructions: Source: [facility] POWERCHART Document Id: [id number] 'S GARMENT FITTER Miscellaneous - Yobani Man M.D. - 03/21/2014 4:40 PM CST Ambulatory Discharge Medication List [address] [id number] Visit Information Name: YAZ MAYERS [facility] Number: [id number] Visit Date: 03/21/2014 16:40:19 Attending [...] MD Signed On:21-MAR-2014 16:39:41 Additional Information: Source: [facility] POWERCHART Document Id: [id number] 'S GARMENT FITTER Miscellaneous - Kate Giraldo L.PCandyN. - 03/21/2014 3:47 PM CST Adult Curriculum Specialist Intake/History Adult Curriculum Specialist Intake/History Entered On: 03/21/2014 15:48 MEN'S GARMENT FITTER Performed On: 03/21/2014 15:47 MEN'S GARMENT FITTER by KATE GIRALDO LPN Intake Systolic Blood Pressure : 124 mmHg Diastolic Blood Pressure : 70 mmHg NIBP Mean : 88 mmHg BP Location : Left upper extremity Blood Pressure Cuff Size : Large Actual Weight : 120.0 kg(Converted to: 264 lb 9 oz) Dosing Weight Clinic : 120 kg KATE GIRALDODeb VARGAS - 03/21/2014 15:47 MEN'S GARMENT FITTER General Info Information Given By : Patient Languages : Costa Rican Is Patient Female and 13-50 no hysterectomy : No KATE GIRALDODeb VARGAS - 03/21/2014 15:47 MEN'S GARMENT FITTER Subjective Pain Symptoms : No GIRALDOMARCY ARDEN VARGAS - 03/21/2014 15:47 MEN'S GARMENT FITTER Dependent Habits Tobacco Use/Currently Using : No Exposure to Tobacco Smoke : Other: never Smoking Status : Never smoker KATE GIRALDO ARDEN VARGAS - 03/21/2014 15:47 MEN'S GARMENT FITTER ID Screen Travel Within Last 21 Days : KATE Lua ARDEN VARGAS - 03/21/2014 15:47 MEN'S GARMENT FITTER Source: [employer] Document Id: [id number] MEN'S GARMENT FITTER!21 'S GARMENT FITTER documented in this encounter Plan of Treatment Upcoming Encounters Date Type Specialty Care Team Description 02/04/2022 Office Visit Orthopedic Surgery Deon Herrera M.D. [address] [place], [place] [phone] (Wo rk) documented as of this encounter Visit Diagnoses Not on filedocumented in this encounter
--- OUTSIDE RECORDS SUMMARY | 2022-01-25 16:42 | XMS_ITS | Encounter Summary ---
:1955 Author Organization [facility] Address [address] [place] [address] Care Team Providers Name Role Phone Unavailable Primary Care Provider Unavailable Encounter Details Date Type Department Care Team Description 04/19/2014 Hospital Encounter HX [facility] Guido Man M.D. [address] [place] [address], [address] [place] [address] (Wo rk) Social History Tobacco [...] do you attend orthodoxy or Never 2021 presybeterian services? Do you [...] Comments Blood Pressure 124/66 04/19/2014 12:25 PM REFINING EQUIPMENT OPERATOR Pulse - - Temperature - - Respiratory Rate - - Oxygen Saturation - - Inhaled Oxygen Concentration - - Weight 119 kg (262 lb 12.6 oz) 04/19/2014 12:25 PM REFINING EQUIPMENT OPERATOR Height - - Body Mass Index 38.92 [...] Man M.D. - 04/19/2014 12:02 PM CST [id number] CHIEF COMPLAINT/REASON FOR VISIT Followup left chest [...] MD On: 04/21/2014 12:08 PM Source: [facility] MHSDOLBEYNONRADSYS Document Id: [id number] NING EQUIPMENT OPERATOR documented in this encounter Miscellaneous Notes Estefaniacellbernard - Nba Benson - 06/07/2014 9:25 AM CDT *General Message From: NBA BENSON ( Physical Medicine and Rehabilitation Staff) To: YAZ MAYERS Sent: 06/07/2014 09:25:00 CDT Subject: *General Message Tarik Mukherjee, I am following up with you after you had those injections in your low back, how are you feeling? Thank you, Nba Source: [facility] POWERCHART Document Id: [id number] Electronically signed by Priya [facility] Delicatessen Goods Stock Clerk [id number] at 08/11/2016 8:28 PM CDT Miscellaneous - [...] Patient ( ) ( ) Call for Special Services Supervisor ( ) Follow up on Results ( ) Other: PROVIDER: ( ) Call Physician ( ) Call Pharmacist ( ) Call Lab ( ) Other: Special Instructions: Comments: Source: [facility] POWERCHART Document Id: [id number] Electronically signed by Priya [facility] [employer]icatessen Goods Stock Clerk [id number] at 08/11/2016 8:28 PM CDT Miscellaneous - Yobani Man M.D. - 04/19/2014 1:48 PM CST Ambulatory Patient Summary [address] [id number] Visit Information Name: YAZ MAYERS [facility] Number: [id number] Current Date: 04/19/2014 13:48:35 Physicians Attending Provider: YOBANI MAN MD Primary Care Provider: PCP, ELSEWHERE YAZ MAYESR has been given the following list of [...] detail needed. Your Goals/Additional instructions: Source: [facility] POWERCHART Document Id: [id number] NING EQUIPMENT OPERATOR Miscellaneous - Yobani Man M.D. - 04/19/2014 1:48 PM CST Ambulatory Discharge Medication List [address] [id number] Visit Information Name: YAZ MAYERS [facility] Number: [id number] Visit Date: 04/19/2014 13:48:32 Attending [...] Signed On:19-APR-2014 13:47:56 Additional Information: Source: [facility] [employer] Document Id: [id number] NING EQUIPMENT OPERATOR Miscellaneous - Nba Benson - 04/19/2014 12:25 PM CST Adult Hob Grinder Intake/History Adult Hob Grinder Intake/History Entered On: 04/19/2014 12:28 REFINING EQUIPMENT OPERATOR Performed On: 04/19/2014 12:25 REFINING EQUIPMENT OPERATOR by NBA BENSON Intake Systolic Blood Pressure : 124 mmHg Diastolic Blood Pressure : 66 mmHg NIBP Mean : 85 mmHg BP Location : Left upper extremity Blood Pressure Cuff Size : Large Actual Weight : 119.2 kg(Converted to: 262 lb 13 oz) Weight Source : Standing scale Dosing Weight Clinic : 119.2 kg NBA BENSON - 04/19/2014 12:25 REFINING EQUIPMENT OPERATOR General Info Information Given By : Patient Preferred Communication Mode : Verbal Languages : Hebrew Is Patient Female and 13-50 no hysterectomy : NBA Covington - 04/19/2014 12:25 REFINING EQUIPMENT OPERATOR Subjective Pain Symptoms : NBA Covington - 04/19/2014 12:25 REFINING EQUIPMENT OPERATOR Dependent Habits Tobacco Use/Currently Using : No Exposure to Tobacco Smoke : Other: never Smoking Status : Never smoker NBA BENSON - 04/19/2014 12:25 REFINING EQUIPMENT OPERATOR ID Screen Drug Resistant Organism : No Travel Within Last 21 Days : NBA Covington - 04/19/2014 12:25 REFINING EQUIPMENT OPERATOR [facility] Document Id: [id number] REFINING EQUIPMENT OPERATOR!24 NING EQUIPMENT OPERATOR documented in this encounter Plan of Treatment Upcoming Encounters Date Type Specialty Care Team Description 02/04/2022 Office Visit Orthopedic Surgery Deon Herrera M.D. [address] [place] [phone] (Wo rk) documented as of this encounter Visit Diagnoses Not on filedocumented in this encounter
--- OUTSIDE RECORDS SUMMARY | 2022-01-25 16:42 | XMS_ITS | Encounter Summary ---
:1955 Author Organization [facility] Address [address] [place] [address] Care Team Providers Name Role Phone Unavailable Primary Care Provider Unavailable Encounter Details Date Type Department Care Team Description 08/23/2013 Hospital Encounter HX [facility] Guido Man M.D. [address] [place] [address], [address] [place] [address] (Wo rk) Social History Tobacco [...] do you attend cheondoism or Never 2021 baptist services? Do you [...] Man M.D. - 08/23/2013 10:31 AM CDT [id number] CHIEF COMPLAINT/REASON FOR VISIT Low back pain. [...] MAN MD On: 08/25/2013 11:05 AM Source: [facility] MHSDOLBEYNONRADSYS Document Id: [id number] documented in this encounter Miscellaneous Notes Miscellaneous [...] MAN MD 09/01/2013 17:38:37 From: SAMARA MANJARREZ ([facility] Refill) To: YOBANI MAN MD; Sent: 09/01/2013 08:50:22 CDT Subject: Lyrica Caller is: ( ) Patient ( ) Mother ( ) Father ( ) Spouse ( ) Daughter ( ) Son ( [facility] ) Pharmacy ( ) Other: Provider: [facility]: Name of Medications Needing Refill: Lyrica 150 mg Last Refill Date: 08/02/13 qty 60 Additional Information: 1 cap po BID Last / Future Appointment: 08/23/13; 09/09/13 Disposition: ( x ) Send to Pharmacy ( ) Call to Pharmacy ( ) Patient will brick picker Script ( ) Mail Rxto Patient Source: [facility] POWERCHART Document Id: [id number] Miscellaneous - Yobani Man M.D. - 08/23/2013 11:32 AM CDT Ambulatory Patient Summary [address] [id number] Visit Information Name: YAZ SANTAMARIA [facility] Number: [id number] Current Date: 08/23/2013 11:32:45 Physicians [...] appointment detail needed. Your Goals/Additional instructions: Source: [facility] POWERCHART Document Id: [id number] Miscellaneous - Yobani Man M.D. - 08/23/2013 11:32 AM CDT Ambulatory Discharge Medication List [address] [id number] Visit Information Name: YAZ SANTAMARIA [facility] Number: [id number] Visit Date: 08/23/2013 11:32:42 Attending [...] MD Signed On:23-AUG-2013 11:32:12 Additional Information: Source: [facility] POWERCHART Document Id: [id number] Miscellaneous - Nba Benson - 08/23/2013 11:08 AM CDT Adult Reactor Fueling Supervisor Intake/History Document Has Been Updated Adult Reactor Fueling Supervisor Intake/History Entered On: 08/23/2013 11:10 CDT Performed [...] Preferred Communication Mode : Verbal Languages : Cymraes NBA BENSON - 08/23/2013 11:08 CDT Subjective [...] AVILA; Reviewed Date: 08/23/2013 11:06 CDT Source: [facility] POWERCHART Document Id: [id number] CDT!20 documented in this encounter Plan of Treatment Upcoming Encounters Date Type Specialty Care Team Description 02/04/2022 Office Visit Orthopedic Surgery Deon Herrera M.D. [address] [place] [phone] (Wo rk) documented as of this encounter Visit Diagnoses Not on filedocumented in this encounter
--- OUTSIDE RECORDS SUMMARY | 2022-01-25 16:42 | XMS_ITS | Encounter Summary ---
:1955 Author Organization [facility] Address [address] [place] [address] Care Team Providers Name Role Phone Unavailable Primary Care Provider Unavailable Encounter Details Date Type Department Care Team Description 09/26/2014 Hospital Encounter HX [facility] Guido Paige M.D. [address] [place] [address], [address] [place] [address] (Wo rk) Social History Tobacco [...] do you attend jainism or Never 2021 samaritan services? Do you [...] Orthopedic Surgery Deon Herrera M.D. [address] [place], [place] [phone] (Wo rk) documented as [...]
--- OUTSIDE RECORDS SUMMARY | 2022-01-25 16:42 | XMS_ITS | Encounter Summary ---
:1955 Author Organization [facility] Address [address] [place] [address] Care Team Providers Name Role Phone Unavailable Primary Care Provider Unavailable Encounter Details Date Type Department Care Team Description 10/28/2013 Hospital Encounter HX [facility] Guido Man M.D. [address] [place] [address], [address] [place] [address] (Wo rk) Social History Tobacco [...] do you attend jainism or Never 2021 adventist services? Do you [...] Man M.D. - 10/28/2013 2:45 PM CDT [id number] CHIEF COMPLAINT/REASON FOR VISIT Follow up low [...] with Ms. Santamaria after her consultation at [facility]. She knowsto be in contact with us [...] MAN MD On: 10/29/2013 11:58 AM Source: [facility] MHSDOLBEYNONRADSYS Document Id: [id number] documented in this encounter Miscellaneous Notes Telephone Encounter - Conversion, Historical Provider Ser - 01/24/2014 11:03 AM CST *Phone Message/Dr. Man Document Contains Addenda Addendum by NBA BENSON on 26 January 2014 08:06:07 PLANT CONTROL OPERATOR Information has been added. From: CHELA CASTILLO ( [place] [facility]) To: Physical Medicine and Rehabilitation Staff; Sent: 01/24/2014 11:03:14 PLANT CONTROL OPERATOR Subject: *Phone Message/Dr. Man Caller is: ( [...] back cell phone number ( ) Source: [facility] POWERCHART Document Id: [id number] Miscellaneous - Yobani aMn M.D. - 10/28/2013 3:34 PM CDT Ambulatory Patient Summary [address] [id number] Visit Information Name: YAZ SANTAMARIA [facility] Number: [id number] Current Date: 10/28/2013 [...] appointment detail needed. Your Goals/Additional instructions: Source: [facility] POWERCHART Document Id: [id number] Miscellaneous - Yobani Man M.D. - 10/28/2013 3:34 PM CDT Ambulatory Discharge Medication List [address] [id number] Visit Information Name: YAZ SANTAMARIA [facility] Number: [id number] Visit Date: 10/28/2013 [...] MD Signed On:28-OCT-2013 15:33:53 Additional Information: Source: [facility] TVShow Time Document Id: [id number] Miscellaneous - Imelda Culp RSukh(R) - 10/28/2013 2:54 PM CDT Adult Laminating Machine Feeder Intake/History Document Has Been Updated Adult Laminating Machine Feeder Intake/History Entered On: 10/28/2013 14:58 CDT Performed [...] Preferred Communication Mode : Verbal Languages : Syriac Is Patient Female and 13-50 no hysterectomy [...] AVILA; Reviewed Date: 10/28/2013 14:55 CDT Source: [facility] TV[employer] Time Document Id: [id number] CDT!22 documented in this encounter Plan of Treatment Upcoming Encounters Date Type Specialty Care Team Description 02/04/2022 Office Visit Orthopedic Surgery Deon Herrera M.D. [address] [place], [place] [phone] (Wo rk) documented as of this encounter Visit Diagnoses Not on filedocumented in this encounter
--- OUTSIDE RECORDS SUMMARY | 2022-01-25 16:42 | XMS_ITS | Encounter Summary ---
:1955 Author Organization [facility] Address [address] [place] [address] Care Team Providers Name Role Phone Unavailable Primary Care Provider Unavailable Encounter Details Date Type Department Care Team Description 04/10/2015 Hospital Encounter HX [facility] Guido Man M.D. [address] [place] [address], [address] [place] [address] (Wo rk) Social History Tobacco [...] Comments Blood Pressure 124/66 04/10/2015 2:43 PM POWDERED SUGAR PULVERIZER OPERATOR Pulse - - Temperature - - Respiratory Rate - - Oxygen Saturation - - Inhaled Oxygen Concentration - - Weight 119 kg (261 lb 14.5 oz) 04/10/2015 2:43 PM POWDERED SUGAR PULVERIZER OPERATOR Height - - Body Mass Index 38.79 [...] Man M.D. - 04/10/2015 2:22 PM CST [id number] CHIEF COMPLAINT/REASON FOR VISIT Neck pain and cervical spinal stenosis and low back pain. HISTORY OF PRESENT ILLNESS Ms. Caro returns today. Since I last saw her, she is seeing Dr. Ziggy Cabello at [facility], and I spoke with Dr. [...] cervical spine MRI that was performed in [place]. With the degree of stenosis seen on the MRI, I do feel it would be worthwhile for Ms. Encinas be evaluated by Neurology and/or Neurosurgery in [place] to obtain their opinion with respect to that at this time, and Ms. Caro is also in agreement with that and would appreciate thisas she understandably has been concerned since obtaining the cervical spine MRI and her appointment w beatriz Cabello. PLAN: 1. I am going to refer Ms. Caro to Neurosurgery in [place]. 2. Ms. Caro will continue with her [...] with Ms. Caro following her consultation in [place].She knows to be in contact with me [...] MD On: 04/19/2015 06:18 PM Source: [facility] MHSDOLBEYNONRADSYS Document Id: [id number] ERED SUGAR PULVERIZER OPERATOR documented in this encounter Miscellaneous Notes Miscellaneous - Yobani Man M.D. - 04/10/2015 3:26 PM CST Ambulatory Patient Summary [place] [facility] [address] [place], [place] [id number] Visit Information Name: YAZ CARO [facility] Number: [id number] Current Date: 04/10/2015 15:26:33 [...] one. Go to [email or web address] and click on Create Your Account. Then, follow the directions to complete the online form. Youll be asked for your [facility] number which you can find at the top of this document. Your Goals/Additional instructions: Source: [facility] POWERCHART Document Id: [id number] ERED SUGAR PULVERIZER OPERATOR Miscellaneous - Yobani Man M.D. - 04/10/2015 3:26 PM CST Ambulatory Discharge Medication List [address] [id number] Visit Information Name: YAZ CARO [facility] Number: [id number] Visit Date: 04/10/2015 15:26:31 [...] Signed On:10-APR-2015 15:25:50 Additional Information: Source: [facility] POWERCHART Document Id: [id number] ERED SUGAR PULVERIZER OPERATOR Miscellaneous - Kate Giraldo LCandyP.N. - 04/10/2015 2:43 PM CST Adult Base Engineer Intake/History Adult Base Engineer Intake/History Entered On: 04/10/2015 14:44 POWDERED SUGAR PULVERIZER OPERATOR Performed On: 04/10/2015 14:43 POWDERED SUGAR PULVERIZER OPERATOR by KATE GIRALDO LPN Intake Systolic Blood Pressure : 124 mmHg Diastolic Blood Pressure : 66 mmHg NIBP Mean : 85 mmHg BP Location : Left upper extremity Blood Pressure Cuff Size : Large Actual Weight : 118.8 kg(Converted to: 261 lb 15 oz) Dosing Weight Clinic : 118.8 kg KATE GIRALDO LPN - 04/10/2015 14:43 POWDERED SUGAR PULVERIZER OPERATOR General Info Information Given By : Patient Languages : Samoan Is Patient Female and 13-50 no hysterectomy : No KATE GIRALDO LPN - 04/10/2015 14:43 POWDERED SUGAR PULVERIZER OPERATOR Subjective Pain Symptoms : No KATE GIRALDO LPN - 04/10/2015 14:43 POWDERED SUGAR PULVERIZER OPERATOR Dependent Habits Exposure to Tobacco Smoke : Other: never Smoking Status : Never smoker Tobacco 2A : No Tobacco Use/Currently Using : No Tobacco Use/Last 30 Days : No Tobacco Use/Last 12 months : No KATE GIRALDO LPN - 04/10/2015 14:43 POWDERED SUGAR PULVERIZER OPERATOR Source: [facility] SprainGo Document Id: [id number] POWDERED SUGAR PULVERIZER OPERATOR!22 ERED SUGAR PULVERIZER OPERATOR documented in this encounter Plan of Treatment Upcoming Encounters Date Type Specialty Care Team Description 02/04/2022 Office Visit Orthopedic Surgery Deon Herrera M.D. [address] [place], [place] [phone] (Wo rk) documented as of this encounter Visit Diagnoses Not on filedocumented in this encounter Additional Health Concerns Assessment Noted Time PHQ-9 Depression Total Score: 4 01/24/2015 6:02 PM POWDERED SUGAR PULVERIZER OPERATOR documented as of this encounter
--- OUTSIDE RECORDS SUMMARY | 2022-01-25 16:42 | XMS_ITS | Encounter Summary ---
:1955 Author Organization [facility] Address [address] [place] [address] Care Team Providers Name Role Phone Unavailable Primary Care Provider Unavailable Encounter Details Date Type Department Care Team Description 05/08/2015 Hospital Encounter HX [facility] Guido Man M.D. [address] [place] [address], [address] [place] [address] (Wo rk) Social History Tobacco [...] do you attend druze or Never 2021 evangelical services? Do you [...] Comments Blood Pressure 138/74 05/08/2015 2:54 PM ADVERTISING REP Pulse - - Temperature - - Respiratory Rate - - Oxygen Saturation - - Inhaled Oxygen Concentration - - Weight 120 kg (264 lb 1.8 oz) 05/08/2015 2:54 PM ADVERTISING REP Height - - Body Mass Index 39.12 [...] encounter Progress Notes Yobani Man M.D. - 05/08/2015 2:43 PM CST [id number] CHIEF COMPLAINT/REASON FOR VISIT Neck pain, cervical stenosis. HISTORY OF PRESENT ILLNESS Ms. Caro made this appointment today as she had some questions for me with respect to herpain. She is scheduled to be seen in [place] in Neurology on June 04 which I [...] is scheduled to meet with Neurology at [place] at the end of May, which is [...] following Ms. Caro's consultation with Neurology at [place]. She knows to be in contact with [...] MAN MD On: 05/11/2015 09:03 AM Source: [facility] MHSDOLBEYNONRADSYS Document Id: [id number] RTISING REP documented in this encounter Miscellaneous Notes Miscellaneous - Yobani Man M.D. - 05/08/2015 3:48 PM CST Ambulatory Patient Summary [facility] [address] [place] [id number] Visit Information Name: YAZ CARO [facility] Number: [id number] Current Date: 05/08/2015 15:48:36 Physicians [...] Go to [email or web address] and click on Create Your Account. Then, follow the directions to complete the online form. Youll be asked for your [facility] number which you can find at the top of this document. Your Goals/Additional instructions: Source: [facility] POWERCHART Document Id: [id number] RTISING REP Miscellaneous - Yobani Man M.D. - 05/08/2015 3:48 PM CST Ambulatory Discharge Medication List [address] [id number] Visit Information Name: YAZ CARO [facility] Number: [id number] Visit Date: 05/08/2015 15:48:34 Attending [...] MD Signed On:08-MAY-2015 15:48:13 Additional Information: Source: [facility] POWERCHART Document Id: [id number] RTISING REP Miscellaneous - Kate Giraldo LCandyP.N. - 05/08/2015 2:54 PM CST Adult Almond Pan Finisher Intake/History Adult Almond Pan Finisher Intake/History Entered On: 05/08/2015 14:56 ADVERTISING REP Performed On: 05/08/2015 14:54 ADVERTISING REP by KATE GIRALDO LPN Intake Systolic Blood Pressure : 138 mmHg Diastolic Blood Pressure : 74 mmHg NIBP Mean : 95 mmHg BP Location : Left upper extremity Blood Pressure Cuff Size : Large Actual Weight : 119.8 kg(Converted to: 264 lb 2 oz) Dosing Weight Clinic : 119.8 kg KATE GIRALDO LPN - 05/08/2015 14:54 ADVERTISING REP General Info Information Given By : Patient Languages : Tanzanian Is Patient Female and 13-50 no hysterectomy : No GIRALDOKATE ELLINGTON ARDEN VARGAS - 05/08/2015 14:54 ADVERTISING REP Subjective Pain Symptoms : No KATE GIRALDO LPN - 05/08/2015 14:54 ADVERTISING REP Dependent Habits Exposure to Tobacco Smoke : Other: never Smoking Status : Never smoker Tobacco 2A : No Tobacco Use/Currently Using : No Tobacco Use/Last 30 Days : No Tobacco Use/Last 12 months : No KATE GIRALDO LPN - 05/08/2015 14:54 ADVERTISING REP [facility] Document Id: [id number] ADVERTISING REP!22 RTISING REP documented in this encounter Plan of Treatment Upcoming Encounters Date Type Specialty Care Team Description 02/04/2022 Office Visit Orthopedic Surgery Deon Herrera M.D. [address] [place], [place] [phone] (Wo rk) documented as of this encounter Visit Diagnoses Not on filedocumented in this encounter Additional Health Concerns Assessment Noted Time PHQ-9 Depression Total Score: 4 01/24/2015 6:02 PM ADVERTISING REP documented as of this encounter
--- OUTSIDE RECORDS SUMMARY | 2022-01-25 16:42 | XMS_ITS | Encounter Summary ---
:1955 Author Organization [facility] Address [address] [place] [address] Care Team Providers Name Role Phone Unavailable Primary Care Provider Unavailable Encounter Details Date Type Department Care Team Description 07/05/2014 Hospital Encounter HX [facility] Guido Man M.D. [address] [place] [address], [address] [place] [address] (Wo rk) Social History Tobacco [...] do you attend anabaptism or Never 2021 mormonism services? Do you [...] Man M.D. - 07/05/2014 2:14 PM CDT [id number] CHIEF COMPLAINT/REASON FOR VISIT Low back and [...] scheduled to go on a trip to [facility] in approximately 3 weeks and is [...] MAN MD On: 07/07/2014 09:22 AM Source: [facility] MHSDOLBEYNONRADSYS Document Id: [id number] documented in this encounter Miscellaneous Notes Miscellaneous [...] ( ) Daughter ( ) Son ( [facility] [phone]; [phone] ) Pharmacy ( ) Other: Provider: [facility]: Name of Medications Needing Refill: lyrica 150 mg Last Refill Date: 09/03/14 qty 60 Additional Information: 1 tab po daily Last / Future Appointment: 08/24/14 Disposition: ( x ) Send to Pharmacy ( ) Call to Pharmacy ( ) Patient will bulk picker Script ( ) Mail Rxto Patient Source: [facility] [employer] Document Id: [id number] Electronically signed by Conversion, [facility] Film Projector Operator [id number] at 08/11/2016 4:42 PM CDT Miscellaneous - Nba Benson - 08/11/2014 2:34 PM CDT *General Message From: NBA BENSON ( Physical Medicine and Rehabilitation Staff) To: YAZ MAYERS Sent: 08/11/2014 14:34:18 CDT Subject: *General Message Tarik Mukherjee, We were just trying to touch base with you after your injection to see how you were doing? Thank you, Nba Source: [facility] [employer] Document Id: [id number] Electronically signed by Conversion, [facility] Film Projector Operator [id number] at 08/11/2016 4:42 PM CDT Miscellaneous - [...] Patient ( ) ( ) Call for Blaster Helper ( ) Follow up on Results ( ) Other: PROVIDER: ( ) Call Physician ( ) Call Pharmacist ( ) Call Lab ( ) Other: Special Instructions: Comments: Source: [facility] POWERCHART Document Id: [id number] Electronically signed by Conversion, [facility] Film Projector Operator [id number] at 08/11/2016 4:42 PM CDT Telephone Encounter - Yobani Man M.D. - 07/13/2014 12:00 AM CDT [id number] I spoke with Ms. HaLucianoNerissa on the phone today. She had an MRI performed of her lumbar spine onJuly 08 at [facility]. Significant findings include at L2-L3, there is [...] MAN MD On: 07/13/2014 05:59 PM Source: [facility] MHSDOLBEYNONRADSYS Document Id: [id number] Miscellaneous - Yobani Man M.D. - 07/05/2014 3:15 PM CDT Ambulatory Patient Summary [place] [facility] [address] [place], [place] [id number] Visit Information Name: YAZ MAYERS [facility] Number: [id number] Current Date: 07/05/2014 15:15:26 Physicians [...] appointment detail needed. Your Goals/Additional instructions: Source: [facility] POWERCHART Document Id: [id number] Miscellaneous - Yobani Man M.D. - 07/05/2014 3:15 PM CDT Ambulatory Discharge Medication List [address] [id number] Visit Information Name: YAZ MAYERS [facility] Number: [id number] Visit Date: 07/05/2014 15:15:24 Attending [...] MD Signed On:05-JUL-2014 15:14:48 Additional Information: Source: [facility] POWERCHART Document Id: [id number] Miscellaneous - Nba Benson - 07/05/2014 2:32 PM CDT Adult Lay Out Drafter Intake/History Adult Lay Out Drafter Intake/History Entered On: 07/05/2014 14:33 CDT Performed [...] Preferred Communication Mode : Verbal Languages : Swiss Is Patient Female and [...] NBA Covington - 07/05/2014 14:32 CDT Source: [facility] POWERCHART Document Id: [id number] CDT!25 documented in this encounter Plan of Treatment Upcoming Encounters Date Type Specialty Care Team Description 02/04/2022 Office Visit Orthopedic Surgery Deon Herrera M.D. [address] [place] [phone] (Wo rk) documented as of this encounter Visit Diagnoses Not on filedocumented in this encounter
--- OUTSIDE RECORDS SUMMARY | 2022-01-25 16:42 | XMS_ITS | Encounter Summary ---
:1955 Author Organization [facility] Address [address] [place] [address] Care Team Providers Name Role Phone Unavailable Primary Care Provider Unavailable Encounter Details Date Type Department Care Team Description 03/21/2014 Hospital Encounter HX [facility] FB Guido Paige M.D. [address] [place] [address], [address] [place] [address] (Wo rk) Social History Tobacco [...] do you attend rastafari or Never 2021 sabianist services? Do you [...] Orthopedic Surgery Deon Herrera M.D. [address] [place], [place] [phone] (Wo rk) documented as of this encounter Procedures Procedure Name Priority Date/Time Associated Diagnosis Comme nts DX SHOULDER LEFT 2+ Routine 03/21/2014 4:59 PM Re sults for this VIEWS UNIT CONTROL WORKER procedure are i n the results section. documented in this encounter Results DX Shoulder Left 2+ Views (03/21/2014 4:59 PM UNIT CONTROL WORKER) Anatomical Region Laterality Modality Upper Extremity, Shoulder Left Radiographic I maging Specimen (Source) Anatomical Collection Method Collection Time Re ceived Time Location / / Volume Laterality 03/21/2014 4:59 PM UNIT CONTROL WORKER Addenda Addendum by Provider, Flynn Hopkins 03/21/2014 4:59 PM UNIT CONTROL WORKER RAD^^^OW XR Shoulder Left 2 or more views 03/21/2014 16:59:04 Addendum by ProviderKellie M.D. o n 03/21/2014 4:59 PM UNIT CONTROL WORKER RAD^^^MA XR SHOULDER LEFT 2 OR MORE VIEWS 03/21/2014 16:59:04 Impressions 03/21/2014 5:19 PM UNIT CONTROL WORKER [Left clavicular fracture Narrative 03/21/2014 5:19 PM UNIT CONTROL WORKER EXAM: XR Shoulder Left 2 or more [...]
--- OUTSIDE RECORDS SUMMARY | 2022-01-25 16:42 | XMS_ITS | Encounter Summary ---
:1955 Author Organization [facility] Address [address] [place] [address] Care Team Providers Name Role Phone Unavailable [...] do you attend hindu or Never 2021 church services? Do you [...]
--- OUTSIDE RECORDS SUMMARY | 2022-01-25 16:43 | XMS_ITS | Encounter Summary ---
:1955 Author Organization [facility] Address [address] [place] [address] Care Team Providers Name Role Phone Unavailable Primary Care Provider Unavailable Encounter Details Date Type Department Care Team Description 04/16/2012 - Hospital Encounter HX [facility] Vivek Man, 04/17/2012 [facility] [address], [address] [place] [address] (Wo rk) Social History [...] do you attend hindu or Never 2021 alevism services? Do you [...] Orthopedic Surgery Deon Herrera M.D. [address] [place], [place] [phone] (Wo rk) documented as of this encounter Visit Diagnoses Not on filedocumented in this encounter
--- OUTSIDE RECORDS SUMMARY | 2022-01-25 16:43 | XMS_ITS | Encounter Summary ---
:1955 Author Organization [facility] Address [address] [place] [address] Care Team Providers Name Role Phone Unavailable Primary Care Provider Unavailable Encounter Details Date Type Department Care Team Description 10/28/2011 Hospital Encounter [facility]X [facility] Guido Man M.D. [address] [place] [address], [address] [place] [address] (Wo rk) Social History [...] Man M.D. - 10/28/2011 11:18 AM CDT [id number] CHIEF COMPLAINT / REASON FOR VISIT Right [...] a trip to see her mother in [facility] who is not doing well from a [...] will refer her to orthopedic surgery at [place]. She has had previous physical therapy as [...] this and so I will refer herto [place] as well to be seen in the [...] plan on being in contact with Ms. Sanatmaria after her appointments at [place] and she knows to be in contact [...] MAN MD On: 11/05/2011 11:28 AM Source: [facility] MHSDOLBEYNONRADSYS Document Id: [id number] documented in this encounter Procedure Notes Yobani [...] contact with her after her appointments at [place]. She voiced agreement and understanding with this plan. Yobani Man M.D./vipin Electronically Signed By: YOBANI MAN MD On: 11/05/2011 11:08 AM Source: [facility] MHSDOLBEYNONRADSYS Document Id: [id number] documented in this encounter Miscellaneous Notes Miscellaneous - Yobani Man M.D. - 10/28/2011 12:08 PM CD[place] [address] Visit Information Name: FANTA SANTAMARIA Current Date: [...] No Appointments found Your Goals/Additional instructions: Source: [facility] POWERCHART Document Id: [id number] Miscellaneous - Yobani Man M.D. - 10/28/2011 12:08 PM CD[place] [address] Visit Information Name: FANTA SANTAMARIA Visit Date: [...] your provider for clarification. Additional Information: Source: [facility] POWERCHART Document Id: [id number] Miscellaneous - Yobani Man M.D. - 10/28/2011 12:00 AM CDT [id number] TO WHOM IT MAY CONCERN October 28, 2011 DEPARTMENT OF ORTHOPEDIC SURGERY [address] [address] RE: Fanta Santamaria : 1955 To Whom [...] MAN MD On: 10/28/2011 05:30 PM Source: [facility] MHSDOLBEYNONRADSYS Document Id: [id number] Miscellaneous - Yobani Man M.D. - 10/28/2011 12:00 AM CDT [id number] KATALINA HATHAWAY M.D. October 28, 2011 [facility] [address] [place] [id number] RE: Fanta Santamaria : 1955 Dr. Hathaway: [...] MAN MD On: 10/28/2011 05:35 PM Source: [facility] MHSDOLBEYNONRADSYS Document Id: [id number] documented in this encounter Plan of Treatment Upcoming Encounters Date Type Specialty Care Team Description 02/04/2022 Office Visit Orthopedic Surgery Deon Herrera M.D. [address] [place], [place] [phone] (Wo rk) documented as of this encounter Visit Diagnoses Not on filedocumented in this encounter
--- OUTSIDE RECORDS SUMMARY | 2022-01-25 16:43 | XMS_ITS | Encounter Summary ---
:1955 Author Organization [facility] Address [address] [place] [address] Care Team Providers Name Role Phone Unavailable [...] do you attend faith or Never 2021 protestant services? Do you [...] Orthopedic Surgery Deon Herrera M.D. [address] [place], [place] [phone] (Wo rk) documented as of this encounter Visit Diagnoses Not on filedocumented in this encounter
--- OUTSIDE RECORDS SUMMARY | 2022-01-25 16:43 | XMS_ITS | Encounter Summary ---
:1955 Author Organization [facility] Address [address] [place] [address] Care Team Providers Name Role Phone Unavailable [...] do you attend religion or Never 2021 shinto services? Do you [...] Orthopedic Surgery Deon Herrera M.D. [address] [place], [place] [phone] (Wo rk) documented as of this encounter Visit Diagnoses Not on filedocumented in this encounter
--- OUTSIDE RECORDS SUMMARY | 2022-01-25 16:43 | XMS_ITS | Encounter Summary ---
:1955 Author Organization [facility] Address [address] [place] [address] Care Team Providers Name Role Phone Unavailable Primary Care Provider Unavailable Encounter Details Date Type Department Care Team Description 03/05/2012 Hospital Encounter HX [facility] Guido Man M.D. [address] [place] [address], [address] [place] [address] (Wo rk) Social History Tobacco [...] do you attend taoism or Never 2021 islam services? Do you [...] Comments Blood Pressure 128/76 03/05/2012 2:11 PM FRUIT BUYER Pulse - - Temperature - - Respiratory Rate - - Oxygen Saturation - - Inhaled Oxygen Concentration - - Weight 116 kg (256 lb 6.3 oz) 03/05/2012 2:11 PM FRUIT BUYER Height - - Body Mass Index 37.98 [...] Man M.D. - 03/05/2012 1:45 PM CST [id number] CHIEF COMPLAINT / REASON FOR VISIT Bilateral foot pain and low back pain. HISTORY OF PRESENT ILLNESS Ms. Caro returns today in followup. Since I last saw her, she did meet with physical therapy at [facility] in [place] and did have custom orthotics made. I [...] a right total knee arthroplasty performed at [place] by Dr. Gonzalez and is doing excellent [...] have her involved in physical therapy in [place] and we discussed this today and she [...] MAN MD On: 03/16/2012 01:04 PM Source: [facility] MHSDOLBEYNONRADSYS Document Id: [id number] T BUYER documented in this encounter Miscellaneous Notes Miscellaneous - Yobani Man M.D. - 03/05/2012 2:47 PM CST Ambulatory [place] [address] Visit Information Name: YAZ CARO [facility] Number: [id number] Current Date: 03/05/2012 14:47:26 [...] No Appointments found Your Goals/Additional instructions: Source: [facility] POWERCHART Document Id: [id number] T BUYER Miscellaneous - Yobani Man M.D. - 03/05/2012 2:47 PM CST [place] [address] Visit Information Name: YAZ CARO [facility] Number: [id number] Visit Date: 03/05/2012 14:47:25 [...] your provider for clarification. Additional Information: Source: [facility] POWERCHART Document Id: [id number] T BUYER Miscellaneous - Francoise Avila P.A.-C. - 03/05/2012 2:11 PM CST Adult Senior Site Manager Intake/History Adult Senior Site Manager Intake/History Entered On: 03/05/2012 14:11 FRUIT BUYER Performed On: 03/05/2012 14:11 FRUIT BUYER by FRANCOISE AVILA Intake Systolic Blood Pressure : 128mmHg Diastolic Blood Pressure : 76mmHg NIBP Mean : 93mmHg BP Location : Left upper extremity Blood Pressure Cuff Size : Large Actual Weight : 116.3kg(Converted to: 256lb 6oz) Weight Source : Standing scale Dosing Weight Clinic : 116.30kg FRANCOISE AVILA - 03/05/2012 14:11 FRUIT BUYER Subjective Pain Symptoms : No FRANCOISE AVILA - 03/05/2012 14:11 FRUIT BUYER Dependent Habits Tobacco Use/Currently Using : No Exposure to Tobacco Smoke : Other: never Smoking Status : Never smoker FRANCOISE AVILA - 03/05/2012 14:11 FRUIT BUYER Allergy Allergies (Active) penicillins Estimated Onset Date: Unspecified ; Created By: FRANCOISE AVILA; Reaction Status:Active ; Category: Drug ; Substance: penicillins ; Type: Allergy ; Updated By: FRANCOISE AVILA; Reviewed Date: 07/30/2011 10:55 CDT Source: [facility] POWERCHART Document Id: [id number] T BUYER documented in this encounter Plan of Treatment Upcoming Encounters Date Type Specialty Care Team Description 02/04/2022 Office Visit Orthopedic Surgery Deon Herrera M.D. [address] [place], [place] [phone] (Wo rk) documented as of this encounter Visit Diagnoses Not on filedocumented in this encounter
--- OUTSIDE RECORDS SUMMARY | 2022-01-25 16:43 | XMS_ITS | Encounter Summary ---
:1955 Author Organization [facility] Address [address] [place] [address] Care Team Providers Name Role Phone Unavailable Primary Care Provider Unavailable Encounter Details Date Type Department Care Team Description 09/11/2011 Hospital Encounter HX NO MAPPING Clay Man M.D. [address] [place] [address] , [address] [place] [address] (Wo rk) Social History Tobacco [...] do you attend sabianism or Never 2021 christian services? Do you [...] Orthopedic Surgery Deon Herrera M.D. [address] [place], [place] [phone] (Wo rk) documented as of this encounter Visit Diagnoses Not on filedocumented in this encounter
--- OUTSIDE RECORDS SUMMARY | 2022-01-25 16:43 | XMS_ITS | Encounter Summary ---
:1955 Author Organization [facility] Address [address] [place] [address] Care Team Providers Name Role Phone Unavailable Primary Care Provider Unavailable Encounter Details Date Type Department Care Team Description 03/20/2012 Hospital Encounter HX [facility] Guido Man M.D. [address] [place] [address], [address] [place] [address] (Wo rk) Social History Tobacco [...] do you attend caodaism or Never 2021 adventism services? Do you [...] Comments Blood Pressure 138/70 03/20/2012 11:43 AM ROTOR COIL TAPER Pulse - - Temperature - - Respiratory Rate - - Oxygen Saturation - - Inhaled Oxygen Concentration - - Weight 118 kg (259 lb 11.2 oz) 03/20/2012 11:43 AM ROTOR COIL TAPER Height - - Body Mass Index 38.46 [...] Man M.D. - 03/20/2012 11:15 AM CST [id number] CHIEF COMPLAINT / REASON FOR VISIT Follow-up right greater than left foot pain. HISTORY OF PRESENT ILLNESS Ms. Caro returns today in followup. She had a MRI performed of the right foot on March 11, 2012 in [place]. I reviewed the images with her in [...] MAN MD On: 03/30/2012 10:42 AM Source: [facility] MHSDOLBEYNONRADSYS Document Id: [id number] R COIL TAPER documented in this encounter Procedure Notes Yobani [...] MAN MD On: 03/30/2012 10:41 AM Source: [facility] MHSDOLBEYNONRADSYS Document Id: [id number] R COIL TAPER documented in this encounter Miscellaneous Notes Telephone Encounter - Francoise Avila P.A.-C. - 04/14/2012 10:02 AM ROTOR COIL TAPER Phone Message Document Contains Addenda Addendum by YOBANI MAN MD on 14 April 2012 14:51:51 ROTOR COIL TAPER From: YOBANI MAN MD To: FRANCOISE AVILA; Sent: 04/14/2012 14:51:51 ROTOR COIL TAPER Subject: RE: Phone Message That would be reasonable. Please arrange. From: FRANCOISE AVILA To: YOBANI MAN MD; Sent: 04/14/2012 10:02:28 ROTOR COIL TAPER Subject: Phone Message Caller is: ( ) [...] back cell phone number ( ) Source: [facility] POWERCHART Document Id: [id number] Electronically signed by Conversion, [facility] Transportation Maintenance Worker [id number] at 08/14/2016 2:29 PM CDT Telephone Encounter - Francoise Avila P.A.-C. - 04/01/2012 10:25 AM ROTOR COIL TAPER Phone Message From: FRANCOISE AVILA To: YOBANI MAN MD; Sent: 04/01/2012 10:25:31 ROTOR COIL TAPER Subject: Phone Message Caller is: ( ) [...] back cell phone number ( ) Source: [facility] POWERCHART Document Id: [id number] Electronically signed by Priya [facility] Transportation Maintenance Worker [id number] at 08/14/2016 2:29 PM CDT Telephone Encounter - Yobani Man M.D. - 03/31/2012 12:00 AM CST [id number] I phoned Ms. Caro today. She reports [...] including walking and yesterday went to the [facility] and did have some increased discomfort [...] MAN MD On: 04/06/2012 10:33 AM Source: [facility] MHSDOLBEYNONRADSYS Document Id: [id number] R COIL TAPER Telephone Encounter - Yobani Man M.D. - 03/27/2012 12:00 AM CST [id number] I spoke with Ms. Caro on the [...] MAN MD On: 04/06/2012 08:38 AM Source: [facility] MHSDOLBEYNONRADSYS Document Id: [id number] R COIL TAPER Miscellaneous - Francoise Avila P.A.-C. - 03/25/2012 11:09 AM CST Reminder Msg From: FRANCOISE AVILA To: FRANCOISE AVILA; Sent: 03/25/2012 11:09:38 ROTOR COIL TAPER Show up: 04/03/2012 11:09:00 ROTOR COIL TAPER Subject: Reminder Msg Please Remember to: see how B feet are feeling after inj PATIENT: ( ) Call Patient ( ) Ask Patient to ( ) ( ) Call Relative ( ) Schedule Patient ( ) ( ) Call for Building Service Worker ( ) Follow up on Results ( ) Other: PROVIDER: ( ) Call Physician ( ) Call Pharmacist ( ) Call Lab ( ) Other: Special Instructions: Comments: Source: [facility] POWERCHART Document Id: [id number] Electronically signed by Priya [facility] Transportation Maintenance Worker [id number] at 08/14/2016 2:29 PM CDT Telephone Encounter - Yobani Man M.D. - 03/24/2012 12:00 AM CST [id number] I returned a telephone call today to [...] MAN MD On: 03/30/2012 10:35 AM Source: [facility] MHSDOLBEYNONRADSYS Document Id: [id number] R COIL TAPER Miscellaneous - Yobani Man M.D. - 03/20/2012 2:25 PM CST [place] [address] Visit Information Name: YAZ CARO [facility] Number: [id number] Current Date: 03/20/2012 14:25:49 Physicians [...] No Appointments found Your Goals/Additional instructions: Source: [facility] POWERCHART Document Id: [id number] R COIL TAPER Miscellaneous - Yobani Man M.D. - 03/20/2012 2:25 PM CST [place] [address] Visit Information Name: BETHANYIEYAZ [facility] Number: [id number] Visit Date: 03/20/2012 14:25:47 Attending [...] your provider for clarification. Additional Information: Source: [facility] Flatter WorldCHART Document Id: [id number] R COIL TAPER Miscellaneous - Francoise Avila P.A.-C. - 03/20/2012 11:43 AM CST Adult Television Producer Intake/History Adult Television Producer Intake/History Entered On: 03/20/2012 11:44 ROTOR COIL TAPER Performed On: 03/20/2012 11:43 ROTOR COIL TAPER by FRANCOISE AVILA Intake Systolic Blood Pressure : 138mmHg Diastolic Blood Pressure : 70mmHg NIBP Mean : 93mmHg BP Location : Right upper extremity Blood Pressure Cuff Size : Large Actual Weight : 117.8kg(Converted to: 259lb 11oz) Weight Source : Standing scale Dosing Weight Clinic : 117.80kg FRANCOISE AVILA - 03/20/2012 11:43 ROTOR COIL TAPER Subjective Pain Symptoms : No FRANCOISE AVILA - 03/20/2012 11:43 ROTOR COIL TAPER Dependent Habits Tobacco Use/Currently Using : No Exposure to Tobacco Smoke : Other: never Smoking Status : Never smoker FRANCOISE AVILA - 03/20/2012 11:43 ROTOR COIL TAPER Allergy Allergies (Active) penicillins Estimated Onset Date: Unspecified ; Created By: FRANCOISE AVILA; Reaction Status:Active ; Category: Drug ; Substance: penicillins ; Type: Allergy ; Updated By: FRANCOISE AVILA; Reviewed Date: 03/05/2012 14:12 ROTOR COIL TAPER Source: [facility] Flatter WorldCHART Document Id: [id number] R COIL TAPER documented in this encounter Plan of Treatment Upcoming Encounters Date Type Specialty Care Team Description 02/04/2022 Office Visit Orthopedic Surgery Deon Herrera M.D. [address] [place] [phone] (Wo rk) documented as of this encounter Visit Diagnoses Not on filedocumented in this encounter
--- OUTSIDE RECORDS SUMMARY | 2022-01-25 16:43 | XMS_ITS | Encounter Summary ---
:1955 Author Organization [facility] Address [address] [place] [address] Care Team Providers Name Role Phone Unavailable Primary Care Provider Unavailable Encounter Details Date Type Department Care Team Description 05/27/2012 Hospital Encounter HX [facility] Guido Man M.D. [address] [place] [address], [address] [place] [address] (Wo rk) Social History Tobacco [...] Man M.D. - 05/27/2012 3:49 PM CDT [id number] CHIEF COMPLAINT / REASON FOR VISIT Follow-up low back and left lower extremity pain. HISTORY OF PRESENT ILLNESS Ms. Santamaria returns today in followup. Since I last saw her, she was seen by Dr. Romano, orthopedic spine surgeon at [place] and I very much appreciate Dr. Laird, Dr. Romano, and Chente Piper, RN, CAR DUMPER working Ms. Santamaria in to their schedule. Ms. Santamaria had a left L3 transforaminal epidural corticosteroid injection performed at [place] on May 14. Unfortunately, she did not [...] the low back. She has been at [facility] and her pain has made it [...] care that she has been receiving at [place] with Dr. Kingsley's team. 2. I am going to have Ms. Santamaria continue working in occupational and physical therapy. Shehas made progress from a functional standpoint over the past couple of weeks. She will continue to use her medications as prescribed by her primary provider in [place] which includes a Fentanyl patch 50 mcg [...] time 25 minutes Yobani Man M.D./madelaine DOCID: [id number] Electronically Signed By: YOBANI MAN MD On: 05/29/2012 02:48 PM Modified by and Electronically Signed by: YOBANI MAN MD On: 05/29/2012 02:48 PM Source: [facility] MHSDOLBEYNONRADSYS Document Id: [id number] documented in this encounter Miscellaneous Notes Telephone Encounter - Francoise Avila P.A.-C. - 06/05/2012 3:56 PM CDT Phone Message Document Contains Addenda Addendum by FRANCOISE AVILA on 09 June 2012 10:33:53 CDT Faxed PT rx to [facility]. Addendum by YOBANI MAN MD on [...] Yaz has returned home and Vernon from [facility] is there today. Vernon will be going to Yaz's home 2x per week, as well as there will be a home health aide going to her house a couple times a week. Yaz has some PT exercises that she was given by the care home PT and she willcontinue to do those [...] back cell phone number ( ) Source: [facility] POWERCHART Document Id: [id number] Miscellaneous - Yobani Man M.D. - 05/27/2012 5:49 PM CDT Ambulatory [place] [address] Visit Information Name: YAZ SANTAMARIA [facility] Number: [id number] Current Date: 05/27/2012 17:49:46 [...] Yobani Man MD Your Goals/Additional instructions: Source: [facility] [employer] Document Id: [id number] Miscellaneous - Yobani Man M.D. - 05/27/2012 5:49 PM CDT [place] [address] Visit Information Name: DARLINE YAZ [facility] Number: [id number] Visit Date: 05/27/2012 17:49:45 [...] your provider for clarification. Additional Information: Source: [facility] POWERCHART Document Id: [id number] Miscellaneous - Francoise Avila P.A.-C. - 05/27/2012 4:12 PM CDT Adult Surgery Teacher Intake/History Adult Surgery Teacher Intake/History Entered On: 05/27/2012 16:14 CDT Performed [...] By: FRANCOISE AVILA; Reviewed Date: 03/05/2012 14:12 DROP CLIPPER Source: [facility] madvertise Document Id: [id number] documented in this encounter Plan of Treatment Upcoming Encounters Date Type Specialty Care Team Description 02/04/2022 Office Visit Orthopedic Surgery Deon Herrera M.D. [address] [place] [phone] (Wo rk) documented as of this encounter Visit Diagnoses Not on filedocumented in this encounter
--- OUTSIDE RECORDS SUMMARY | 2022-01-25 16:43 | XMS_ITS | Encounter Summary ---
:1955 Author Organization [facility] Address [address] [place] [address] Care Team Providers Name Role Phone Unavailable Primary Care Provider Unavailable Encounter Details Date Type Department Care Team Description 06/26/2012 Hospital Encounter HX [facility] L[facility]R Guido Man M.D. [address] [place] [address], [address] [place] [address] (Wo rk) Social History Tobacco [...] do you attend islam or Never 2021 voodoo services? Do you [...] Man M.D. - 06/26/2012 10:17 AM CDT [id number] CHIEF COMPLAINT / REASON FOR VISIT Follow-up [...] been able to return home from the [facility] and has initiated physical therapy at [facility] a few days ago. She has been [...] Santamaria continue working in physical therapy at [facility]. She brought in her exercises today which were reviewed and these look very appropriate. She will continue to advance her current program under the direction of her physical therapist at [facility]. 2. Ms. Santamaria has been able to [...] MAN MD On: 07/07/2012 09:16 AM Source: [facility] MHSDOLBEYNONRADSYS Document Id: [id number] documented in this encounter Miscellaneous Notes Miscellaneous - Yobani Man M.D. - 06/26/2012 12:00 PM CDT [place] [address] Visit Information Name: FANTA SANTAMARIA [facility] Number: [id number] Current Date: 06/26/2012 12:00:17 [...] Yobani Man MD Your Goals/Additional instructions: Source: [facility] POWERCHART Document Id: [id number] Miscellaneous - Yobani Man M.D. - 06/26/2012 12:00 PM CDT [place] [address] Visit Information Name: FANTA SANTAMARIA [facility] Number: [id number] Visit Date: 06/26/2012 12:00:16 [...] your provider for clarification. Additional Information: Source: [facility] POWERCHART Document Id: [id number] Miscellaneous - Francoise Avila P.A.-C. - 06/26/2012 10:57 AM CDT Adult Entertainment Musician Intake/History Adult Entertainment Musician Intake/History Entered On: 06/26/2012 10:59 CDT Performed [...] Mode : Verbal Languages : Citizen Of [place] FRANCOISE AVILA TOSHIA - 06/26/2012 10:57 CDT Subjective Pain Symptoms : No FRANCOISE AVILA TOSHIA - 06/26/2012 10:57 CDT Dependent Habits Tobacco Use/Currently Using : No Exposure to Tobacco Smoke : Other: never Smoking Status : Never smoker [place] FRANCOISE POPE - 06/26/2012 10:57 CDT Source: [facility] Document Id: [id number]!20 documented in this encounter Plan of Treatment Upcoming Encounters Date Type Specialty Care Team Description 02/04/2022 Office Visit Orthopedic Surgery Deon Herrera M.D. [address] [place] [phone] (Wo rk) documented as of this encounter Visit Diagnoses Not on filedocumented in this encounter
--- OUTSIDE RECORDS SUMMARY | 2022-01-25 16:43 | XMS_ITS | Encounter Summary ---
:1955 Author Organization [facility] Address [address] [place] [address] Care Team Providers Name Role Phone Unavailable [...] do you attend mandaeism or Never 2021 synagogue services? Do you [...] Orthopedic Surgery Deon Herrera M.D. [address] [place], [place] [phone] (Wo rk) documented as of this encounter Visit Diagnoses Not on filedocumented in this encounter
--- OUTSIDE RECORDS SUMMARY | 2022-01-25 16:43 | XMS_ITS | Encounter Summary ---
:1955 Author Organization [facility] Address [address] [place] [address] Care Team Providers Name Role Phone Unavailable Primary Care Provider Unavailable Encounter Details Date Type Department Care Team Description 05/06/2012 Hospital Encounter HX [facility] Rob Lemons M.D. [address] [place] [address], [address] [place] [address] (Wo rk) Social History Tobacco [...] do you attend latter-day or Never 2021 moravian services? Do you [...] Visit Orthopedic Surgery Deon Herrera M.D. [address] [place], [place] [phone] (Wo rk) documented as of this encounter Visit Diagnoses Not on filedocumented in this encounter
--- OUTSIDE RECORDS SUMMARY | 2022-01-25 16:43 | XMS_ITS | Encounter Summary ---
:1955 Author Organization [facility] Address [address] [place] [address] Care Team Providers Name Role Phone Unavailable Primary Care Provider Unavailable Encounter Details Date Type Department Care Team Description 10/28/2012 Hospital Encounter HX [facility] Guido Padilla M.D. [address] [place] [address], [address] [place] [address] (Wo rk) Social History Tobacco [...] do you attend buddhism or Never 2021 sikhism services? Do you [...] Padilla M.D. - 10/28/2012 1:39 PM CDT [id number] CHIEF COMPLAINT/REASON FOR VISIT Low back and [...] placed her hospice. He is in the penitent[facility] and she spends several hours each day [...] going to refer Ms. Santamaria back to [facility] to see if she would be candidate [...] with Ms. Santamaria after her consultation at [facility] and she knows to be in contact with me prior to that time if she notes any worsening or worrisome symptoms which were detailed today. She voiced agreement and understands this plan. Total time 35 minutes, counseling time 20 minutes. Yobani Padilla M.D./jayy cc: [facility] Denise Bond M.D. [address] [place] [id number] Electronically Signed By: YOBANI PADILLA MD On: 11/03/2012 12:06 PM Modified by and Electronically Signed by: YOBANI PADILLA MD On: 11/03/2012 12:06 PM Source: [facility] MHSDOLBEYNONRADSYS Document Id: [id number] documented in this encounter Miscellaneous Notes Miscellaneous - Ann-Marie De Jesus, R.N. - 03/04/2014 9:02 AM CST *Medication Refill Msg Document Contains Addenda Addendum by ANN-MARIE DE JESUS on 04 March 2014 13:32:58 HOLISTIC HEALTH PRACTITIONER called into [facility] [place] Addendum by YOBANI PADILLA MD on 04 March 2014 11:32:48 HOLISTIC HEALTH PRACTITIONER From: YOBANI PADILLA MD To: ANN-MARIE DE JESUS; Sent: 03/04/2014 11:32:48 HOLISTIC HEALTH PRACTITIONER Subject: RE: *Medication Refill Msg Please call. Thanks. Addendum by YOBANI PADILLA MD on 04 March 2014 11:32:39 HOLISTIC HEALTH PRACTITIONER Submitted: Order:pregabalin (Lyrica 150 mg oral capsule) 1 cap(s) PO 2xDay Qty: 60 cap(s) Refills: 5 Substitutions Allowed Don't Print - called to pharmacy (Rx) Signed by YOBANI PADILLA MD 03/04/2014 11:32:30 From: ANN-MARIE DE JESUS To: YOBANI PADILLA MD; Sent: 03/04/2014 09:02:25 HOLISTIC HEALTH PRACTITIONER Subject: *Medication Refill Msg Caller is: ( ) Patient ( ) Mother ( ) Father ( ) Spouse ( ) Daughter ( ) Son ( ) Pharmacy ( ) Other: Provider: Pharmacy:[place] [phone] Name of Medications Needing Refill:lyrica - 150mg caps- take one cap po 2 times daily Last Refill Date:02-03-14 #60 Additional Information: Last / Future Appointment: Disposition: ( ) Send to Pharmacy ( ) Call to Pharmacy ( ) Patient will picker feeder Script ( ) Mail Rx to Patient Source: [facility] Guest of a GuestCHART Document Id: [id number] Electronically signed by Priya [facility] Special Service Representative [id number] at 08/14/2016 5:12 AM CDT Miscellaneous - Samara Mishra R.N. - 03/09/2013 11:09 AM CST Lyrica Document Contains Addenda Addendum by SAMARA MISHRA on 09 March 2013 11:51:09 HOLISTIC HEALTH PRACTITIONER Medication called into [facility] [phone]... Addendum by YOBANI PADILLA MD on 09 March 2013 11:10:28 HOLISTIC HEALTH PRACTITIONER From: YOBANI PADILLA MD To: SAMARA MISHRA; Sent: 03/09/2013 11:10:28 HOLISTIC HEALTH PRACTITIONER Subject: RE: Lyrica Please call. Thanks. Addendum by YOBANI PADILLA MD on 09 March 2013 11:10:21 HOLISTIC HEALTH PRACTITIONER Submitted: Order:pregabalin (Lyrica 150 mg oral capsule) 1 cap(s) PO 2xDay Qty: 60 cap(s) Refills: 5 Substitutions Allowed Don't Print - called to pharmacy (Rx) Signed by YOBANI PADILLA MD 03/09/2013 11:10:09 From: SAMARA MISHRA To: YOBANI PADILLA MD; Sent: 03/09/2013 11:09:34 HOLISTIC HEALTH PRACTITIONER Subject: Lyrica Caller is: ( ) Patient ( ) Mother ( ) Father ( ) Spouse ( ) Daughter ( ) Son ( [facility] ) Pharmacy ( ) Other: Provider: Guido Padilla Pharmacy: Name of Medications Needing Refill: Lyrica 150 mg Last Refill Date: 02/07/13 qty 60 cap Additional Information: take 1 tab po BID Last / Future Appointment: 01/28/13 Disposition: ( x ) Send to Pharmacy ( ) Call to Pharmacy ( ) Patient will picker feeder Script ( ) Mail Rxto Patient Source: [facility] POWERCHART Document Id: [id number] Electronically signed by Conversion, [facility] Special Service Representative [id number] at 08/14/2016 5:12 AM CDT Miscellaneous - [...] ) Pharmacy ( ) Other: Provider: Pharmacy: [facility] fax# [phone] # [phone] Name of Medications Needing Refill: Lyrica 150mg cap Last Refill Date:11/06/12, #60 Additional Information: Last / Future Appointment: 10/28/12 Disposition: ( ) Send to Pharmacy ( ) Call to Pharmacy ( ) Patient will picker feeder Script ( ) Mail Rx to Patient Source: [facility] POWERCHART Document Id: [id number] Miscellaneous - Francoise Novoa P.A.-C. - 11/23/2012 [...] Patient ( ) ( ) Call for State Highway Police Officer ( ) Follow up on Results ( ) Other: PROVIDER: ( ) Call Physician ( ) Call Pharmacist ( ) Call Lab ( ) Other: Special Instructions: Comments: Source: [facility] POWERCHART Document Id: [id number] Electronically signed by Priya [facility] Special Service Representative [id number] at 08/14/2016 5:12 AM CDT Telephone Encounter [...] number ( ) Source: [facility] POWERCHART Document Id: [id number] Electronically signed by Priya [facility] Special Service Representative [id number] at 08/14/2016 5:12 AM CDT Miscellaneous - Yobani Padilla M.D. - 10/28/2012 2:48 PM CDT [place] [address] Visit Information Name: YAZ SANTAMARIA [facility] Number: [id number] Current Date: 10/28/2012 14:48:28 Physicians [...] Your Goals/Additional instructions: Source: [facility] POWERCHART Document Id: [id number] Miscellaneous - Yobani Padilla M.D. - 10/28/2012 2:48 PM CDT [place] [address] Visit Information Name: YAZ SANTAMARIA [facility] Number: [id number] Visit Date: 10/28/2012 14:48:27 Attending [...] clarification. Additional Information: Source: [facility] [employer] Document Id: [id number] Miscellaneous - Conversion, Historical Provider Ser - 10/28/2012 2:08 PM CDT Adult Master Sheet Clerk Intake/History Adult Master Sheet Clerk Intake/History Entered On: 10/28/2012 14:11 CDT Performed [...] Information Given By : Patient Languages : [place]er LEELEE PARRA LPN - 10/28/2012 14:08 CDT Subjective Pain Symptoms : No LEELEE PARRA LPN - 10/28/2012 14:08 CDT Dependent Habits Tobacco Use/Currently Using : No Exposure to Tobacco Smoke : Other: never Smoking Status : Never smoker LEELEE PARRA LPN - 10/28/2012 14:08 CDT [facility] Document Id: [id number] CDT!20 Miscellaneous - Yobani Padilla M.D. - 10/28/2012 12:00 AM CDT [id number] ALEXANDRA HERNANDEZ PA-C October 28, [address] [address] RE: Yaz Santamaria : 1955 Ms. Hernandez: [...] which was performedon May 06, 2012, at [facility] which you will have for your review. 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 She did see Dr. Romano, spine surgeon, at [facility] with respect to this. Overall, Ms. Santamaria [...] PADILLA MD On: 10/28/2012 05:01 PM Source: [facility] MHSDOLBEYNONRADSYS Document Id: [id number] documented in this encounter Plan of Treatment Upcoming Encounters Date Type Specialty Care Team Description 02/04/2022 Office Visit Orthopedic Surgery Deon Herrera M.D. [address] [place], [place] [phone] (Wo rk) documented as of this encounter Visit Diagnoses Not on filedocumented in this encounter
--- OUTSIDE RECORDS SUMMARY | 2022-01-25 16:43 | XMS_ITS | Encounter Summary ---
:[address] [facility] Address [address] [place] [address] Care Team Providers Name Role Phone Unavailable [...] do you attend presybeterian or Never 2021 jain services? Do you [...] Surgery Deon Herrera M.D. [address] [place], [place] [phone] (Wo rk) documented as [...] Time) with INR (12/21/2011 4:42 AM CDT) [facility] food.de Method Time Signature Prothrombin 20.9 (H) 9.5 - [facility] Time, P 13.8 [facility] INR 1.8 0.8 - 1.2 [facility] [place] Specimen Anatomical Collection Method Collection Time Receive d Time (Source) Location / / Volume Laterality 12/21/2011 4:42 AM 2 4:42 CDT AM CDT Baudilio Burns M.D. LAB BLOOD ADD-ON Performing Organization Address City/State/ZIP Code Phon e Number [facility] - [address] [place], [place] [address] [facility] (ABNORMAL) PT (Prothrombin Time) with INR (12/20/2011 4:37 AM CDT) [facility] food.de Method Time Signature Prothrombin 17.2 (H) 9.5 - [facility] Time, P 13.8 [facility] INR 1.5 0.8 - 1.2 [facility] [place] Specimen Anatomical Collection Method Collection Time Receive d Time (Source) Location / / Volume Laterality 12/20/2011 4:37 AM 2 4:37 CDT AM CDT Baudilio Burns M.D. LAB BLOOD ADD-ON Performing Organization Address City/[facility]/ZIP Code Phon e Number [facility] - [address] [place] [phone] [facility] (ABNORMAL) Electrolyte (Chem 4) Panel (12/19/2011 5:13 AM CDT) [facility] Method Time Signature Sodium, S 139 135 - 145 [facility] MMOL/L LABORATORIES - [facility] Chloride, S 102 100 - 108 [facility] MMOL/L LABORATORIES - [facility] BUN (Blood Urea 11 6 - 21 [facility] Nitrogen), S MG/DL LABORATORIES - [facility] Anion Gap 18 (H) 7 - 15 [facility] - [facility] HX Bicarbonate, 19 (L) 22 - 29 [facility] P/S MMOL/L LABORATORIES - [facility] Creatinine 0.7 0.6 - 1.1 [facility] MG/DL LABORATORIES - [facility] eGFR >60 >60 [facility] Non-Black/Afric ML/MIN/BS LABORATORIES - an Bulgarian A [facility] eGFR-Black/Afri >60 >60 [facility] can Bulgarian ML/MIN/BS LABORATORIES - A [facility] Glucose, S 148 (H) 70 - 140 [facility] MG/DL LABORATORIES - [facility] Potassium, S 3.9 3.6 - 5.2 [facility] MMOL/L LABORATORIES - [facility] Specimen Anatomical Collection Method Collection Time Receive d Time (Source) Location / / Volume Laterality 12/19/2011 5:13 AM 2 5:13 CDT AM CDT Leodan Gonzalez M.D. LAB BLOOD ADD-ON Performing Organization Address City/State/ZIP Code Phon e Number [facility] - [address] [place] [phone] [facility] PT (Prothrombin Time) with INR (12/19/2011 5:12 AM CDT) [facility] Method Time Signature Prothrombin 13.4 9.5 - 13.8 [facility] Time, P SEC LABORATORIES - [facility] INR 1.1 0.8 - 1.2 [facility]ATORIES - [facility] Specimen Anatomical Collection Method Collection Time Receive d Time (Source) Location / / Volume Laterality 12/19/2011 5:12 AM 2 5:12 CDT AM CDT Leodan Gonzalez M.D. LAB BLOOD ADD-ON Performing Organization Address City/[facility]/ZIP Code Phon e Number [facility] - [address] (ABNORMAL) CBC without Differential (12/19/2011 5:12 AM CDT) [facility] gist Method Time Signature Erythrocytes 3.88 (L) 3.90 - [facility] 5.03 LABORATORIES - X10(12)/L [facility] MCV 89.4 81.6 - [facility] 98.3 FL LABORATORIES - [facility] Hemoglobin 11.3 (L) 12.0 - [facility] 15.5 G/DL LABORATORIES - [facility] Hematocrit 34.7 (L) 34.9 - [facility] 44.5 % LABORATORIES - [facility] RBC Distrib 14.7 11.9 - [facility] Width 15.5 % LABORATORIES - [facility] Platelet Count 247 150 - 450 [facility] X10(9)/L LABORATORIES - [facility] Leukocytes 9.9 3.5 - [facility] 10.5 LABORATORIES - X10(9)/L [facility] Specimen Anatomical Collection Method Collection Time Receive d Time (Source) Location / / Volume Laterality 12/19/2011 5:12 AM 2 5:12 CDT AM CDT Leodan Gonzalez M.D. LAB BLOOD ADD-ON Performing Organization Address City/[facility]/ZIP Code Phon e Number [facility] - [address] [place] [phone] [facility] DX Knee 2 Views (12/18/2011 12:34 PM [...] Baudilio Burns M.D. IMG DIAGNOSTIC IMAGING PROCE [facility] Hemoglobin (HGB), POCT (12/18/2011 12:21 PM CDT) P athologist Signature Hemoglobin, B 13.1 12.0 - [facility] 15.5 G/DL LABORATORIES [facility] Specimen Anatomical Collection Method Collection Time Receive d Time (Source) Location / / Volume Laterality 12/18/2011 12:21 12/18/2011 PM CDT 12:21 PM CDT Tho Polanco M.D. LAB POCT ORDERABLES - DEVICE Performing Organization Address City/[facility] Code Phon e Number [facility] - [address] PT (Prothrombin Time) with INR (12/18/2011 12:20 PM CDT) Patholo gist Method Time Signature Prothrombin 11.8 9.5 - 13.8 [facility] Time, P SEC LABORATORIES - [facility] INR 1.0 0.8 - 1.2 [facility] [place] Specimen Anatomical Collection Method Collection Time Receive d Time (Source) Location / / Volume Laterality 12/18/2011 12:20 12/18/2011 PM CDT 12:20 PM CDT Baudilio Burns M.D. LAB BLOOD ADD-ON Performing Organization Address City/[facility] Phon e Number [facility] - [address] documented in this encounter Visit Diagnoses Not on filedocumented in this encounter
--- OUTSIDE RECORDS SUMMARY | 2022-01-25 16:43 | XMS_ITS | Encounter Summary ---
:1955 Author Organization [facility] Address [address] [place] [address] Care Team Providers Name Role Phone Unavailable [...] do you attend voodoo or Never 2021 episcopal services? Do you [...] Orthopedic Surgery Deon Herrera M.D. [address] [place], [place] [phone] (Wo rk) documented as of this encounter Visit Diagnoses Not on filedocumented in this encounter
--- OUTSIDE RECORDS SUMMARY | 2022-01-25 16:43 | XMS_ITS | Encounter Summary ---
:1955 Author Organization [facility] Address [address] [place] [address] Care Team Providers Name Role Phone Unavailable Primary Care Provider Unavailable Encounter Details Date Type Department Care Team Description 06/01/2013 Hospital Encounter HX [facility] Guido Man M.D. [address] [place] [address], [address] [place] [address] (Wo rk) Social History Tobacco [...] do you attend sikhism or Never 2021 druze services? Do you [...] Man M.D. - 06/01/2013 2:56 PM CDT [id number] CHIEF COMPLAINT/REASON FOR VISIT Low back pain. [...] MAN MD On: 06/02/2013 05:13 PM Source: [facility] MHSDOLBEYNONRADSYS Document Id: [id number] documented in this encounter Miscellaneous Notes Miscellaneous [...] 1 Substitutions Allowed Route To Pharmacy - [id number] Signed by YOBANI MAN MD From: FRANCOISE AVILA To: YOBANI MAN MD; Sent: 07/13/2013 09:52:46 CDT Subject: Medication Refill Msg Caller is: ( ) Patient ( ) Mother ( ) Father ( ) Spouse ( ) Daughter ( ) Son ( ) Pharmacy ( ) Other: Provider: [facility] Name of Medications Needing Refill: Lidoderm patches Last Refill Date: Additional Information: She has some left over at her house from the last time they were prescribed.She would like a refill of them. Last / Future Appointment: Disposition: ( ) Send to Pharmacy ( ) Call to Pharmacy ( ) Patient will coal picker Script ( ) Mail Rx to Patient Source: [facility] POWERCHART Document Id: [id number] Electronically signed by Priya [facility] Screw Machine Set Up Operator [id number] at 08/13/2016 10:12 AM CDT Miscellaneous - Francoise Avila P.A.-C. - 06/25/2013 4:05 PM CDT Reminder Msg Document Contains Addenda Addendum by FRANCOISE AVILA on 13 July 2013 09:49:18 CDT faxed to [facility] and patient notified. Addendum by YOBANI MAN MD on 13 July 2013 09:26:54 CDT From: YOBANI MAN MD To: FRANCIOSE AVILA; Sent: 07/13/2013 09:26:54 CDT Show up: [...] send a referral for aquatic therapy to [facility]. From: FRANCOISE AVILA ( Physical [...] Patient ( ) ( ) Call for Journeyman Painter ( ) Follow up on Results ( ) Other: PROVIDER: ( ) Call Physician ( ) Call Pharmacist ( ) Call Lab ( ) Other: Special Instructions: Comments: Source: [facility] POWERCHART Document Id: [id number] Electronically signed by Priya [facility] Screw Machine Set Up Operator [id number] at 08/13/2016 10:12 AM CDT Miscellaneous - Yobani Man M.D. - 06/01/2013 3:52 PM CDT Ambulatory Patient Summary [address] [id number] Visit Information Name: YAZ SANTAMARIA [facility] Number: [id number] Current Date: 06/01/2013 [...] appointment detail needed. Your Goals/Additional instructions: Source: [facility] POWERCHART Document Id: [id number] Miscellaneous - Yobani Man M.D. - 06/01/2013 3:52 PM CDT Ambulatory Discharge Medication List [address] [id number] Visit Information Name: YAZ SANTAMARIA [facility] Number: [id number] Visit Date: 06/01/2013 [...] in case of emergency. Additional Information: Source: [facility] POWERCHART Document Id: [id number] Miscellaneous - Francoise Avila P.A.-C. - 06/01/2013 3:06 PM CDT Adult Technology Methodology Consultant Intake/History Adult Technology Methodology Consultant Intake/History Entered On: 06/01/2013 15:07 CDT Performed [...] Preferred Communication Mode : Verbal Languages : Setswana FRANCOISE AVILA - 06/01/2013 15:06 CDT Subjective Pain Symptoms : No AVILA, FRANCOISE POPE - 06/01/2013 15:06 CDT Dependent Habits Tobacco Use/Currently Using : No Exposure to Tobacco Smoke : Other: never Smoking Status : Never smoker AVILAFRANCOISE - 06/01/2013 15:06 CDT Source: [facility] [employer] Document Id: [id number] CDT!20 documented in this encounter Plan of Treatment Upcoming Encounters Date Type Specialty Care Team Description 02/04/2022 Office Visit Orthopedic Surgery Deon Herrera M.D. [address] [place] [phone] (Wo rk) documented as of this encounter Visit Diagnoses Not on filedocumented in this encounter
--- OUTSIDE RECORDS SUMMARY | 2022-01-25 16:43 | XMS_ITS | Encounter Summary ---
:1955 Author Organization [facility] Address [address] [place] [address] Care Team Providers Name Role Phone Unavailable [...] do you attend adventist or Never 2021 shinto services? Do you [...] Orthopedic Surgery Deon Herrera M.D. [address] [place], [place] [phone] (Wo rk) documented as of this encounter Visit Diagnoses Not on filedocumented in this encounter
--- OUTSIDE RECORDS SUMMARY | 2022-01-25 16:43 | XMS_ITS | Encounter Summary ---
:1955 Author Organization [facility] Address [address] [place] [address] Care Team Providers Name Role Phone Unavailable [...] do you attend restorationist or Never 2021 mosque services? Do you [...] Orthopedic Surgery Deon Herrera M.D. [address] [place], [place] [phone] (Wo rk) documented as of this encounter Visit Diagnoses Not on filedocumented in this encounter
--- OUTSIDE RECORDS SUMMARY | 2022-01-25 16:43 | XMS_ITS | Encounter Summary ---
:1955 Author Organization [facility] Address [address] [place] [address] Care Team Providers Name Role Phone Unavailable Primary Care Provider Unavailable Encounter Details Date Type Department Care Team Description 06/03/2012 Hospital Encounter HX [facility] Guido Man M.D. [address] [place] [address], [address] [place] [address] (Wo rk) Social History Tobacco [...] do you attend jainism or Never 2021 jehovah's witness services? Do [...] back cell phone number ( ) Source: [facility] POWERCHART Document Id: [id number] documented in this encounter Plan of Treatment Upcoming Encounters Date Type Specialty Care Team Description 02/04/2022 Office Visit Orthopedic Surgery Deon Herrera M.D. [address] [place], [place] [phone] (Wo rk) documented as of this encounter Visit Diagnoses Not on filedocumented in this encounter
--- OUTSIDE RECORDS SUMMARY | 2022-01-25 16:43 | XMS_ITS | Encounter Summary ---
:1955 Author Organization [facility] Address [address] [place] [address] Care Team Providers Name Role Phone Unavailable Primary Care Provider Unavailable Encounter Details Date Type Department Care Team Description 01/28/2013 Hospital Encounter HX [facility] Guido Man M.D. [address] [place] [address], [address] [place] [address] (Wo rk) Social History Tobacco [...] do you attend restorationist or Never 2021 jehovah's witness services? Do [...] Comments Blood Pressure 110/60 01/28/2013 1:00 PM PICKING MACHINE OPERATOR HELPER Pulse - - Temperature - - Respiratory Rate - - Oxygen Saturation - - Inhaled Oxygen Concentration - - Weight 115 kg (253 lb 1.4 oz) 01/28/2013 1:00 PM PICKING MACHINE OPERATOR HELPER Height - - Body Mass Index 37.49 [...] Man M.D. - 01/28/2013 12:50 PM CST [id number] CHIEF COMPLAINT / REASON FOR VISIT Follow-up low back and bilateral lower extremity pain and right greater than left foot pain. HISTORY OF PRESENT ILLNESS Ms. Santamaria returns today. Since I last saw her, she has been receiving respite care provider as well as scheduled to be in aquatic therapy tomorrow. She reports that she has been improved overall. She did have a flare of her low back pain primarily involving the right side of low back approximately 3 weeks ago and with the use of the respite care provider that has helped those symptoms. She denies [...] time 20 minutes. Yobani Man M.D./madelaine cc: [facility] Electronically Signed By: YOBANI MAN MD On: 02/01/2013 02:42 PM Modified by and Electronically Signed by: YOBANI MAN MD On: 02/01/2013 02:42 PM Source: [facility] MHSDOLBEYNONRADSYS Document Id: [id number] ING MACHINE OPERATOR HELPER documented in this encounter Procedure Notes Yobani [...] MAN MD On: 02/01/2013 02:41 PM Source: [facility] MHSDOLBEYNONRADSYS Document Id: [id number] ING MACHINE OPERATOR HELPER documented in this encounter Miscellaneous Notes Miscellaneous - Francoise Avila P.A.-C. - 01/28/2013 3:16 PM CST Reminder Msg Document Contains Addenda Addendum by FRANCOISE AVILA on 19 February 2013 16:32:11 PICKING MACHINE OPERATOR HELPER She was busy right now, she will call me back when she has time. Addendum by YOBANI MAN MD on 16 February 2013 08:46:55 PICKING MACHINE OPERATOR HELPER From: YOBANI MAN MD To: FRANCOISE AVILA; Sent: 02/16/2013 08:46:55 PICKING MACHINE OPERATOR HELPER Show up: 02/16/2013 08:46:00 PICKING MACHINE OPERATOR HELPER Subject: RE: Reminder That would be fine. She may be a candidate to have RF performed at different levels based on her pain. Addendum by FRANCOISE AVILA on 15 February 2013 11:22:02 PICKING MACHINE OPERATOR HELPER From: FRANCOISE AVILA To: YOBANI MAN MD; Sent: 02/15/2013 11:22:02 PICKING MACHINE OPERATOR HELPER Show up: 02/15/2013 11:18:00 PICKING MACHINE OPERATOR HELPER Subject: RE: Reminder Msg Mukherjee reports that her right foot is feeling better since the injection. She also states that the left foot is feeling much better as well, so she doesn't want to do that one right now. She had RF done in January in [place] which helped her low back and B leg pain a lot, but she is still bothered by low back pain. She is wondering if she should go to the Pain clinic in [place] for a consult to see what other options there are. From: FRANCOISE AVILA ( Physical Medicine and Rehabilitation Staff) To: FRANCOISE AVILA; Sent: 01/28/2013 15:16:32 PICKING MACHINE OPERATOR HELPER Show up: 02/11/2013 15:16:00 PICKING MACHINE OPERATOR HELPER Subject: Reminder Please Remember to: see how she is feeling after bursa inj PATIENT: ( ) Call Patient ( ) Ask Patient to ( ) ( ) Call Relative ( ) Schedule Patient ( ) ( ) Call for Supervisor Hot Dip Tinning ( ) Follow up on Results ( ) Other: PROVIDER: ( ) Call Physician ( ) Call Pharmacist ( ) Call Lab ( ) Other: Special Instructions: Comments: Source: [facility] POWERCHART Document Id: [id number] Electronically signed by Conversion, [facility] Operations Program Manager [id number] at 08/14/2016 1:12 AM CDT Miscellaneous - Yobani Man M.D. - 01/28/2013 2:20 PM CST Ambulatory Patient Summary [place] [facility] [address] [place] [address] Visit Information Name: FANTA SANTAMARIA [facility] Number: [id number] Current Date: 01/28/2013 14:20:50 Physicians [...] appointment detail needed. Your Goals/Additional instructions: Source: [facility] POWERCHART Document Id: [id number] ING MACHINE OPERATOR HELPER Miscellaneous - Yobani Man M.D. - 01/28/2013 2:20 PM CST [place] [address] Visit Information Name: EMMAFANTA AVERY [facility] Number: [id number] Visit Date: 01/28/2013 14:20:50 Attending [...] your provider for clarification. Additional Information: Source: [facility] Iizuu Document Id: [id number] ING MACHINE OPERATOR HELPER Miscellaneous - Francoise Avila P.A.-C. - 01/28/2013 1:00 PM CST Adult Cnc Operator Programmer Intake/History Adult Cnc Operator Programmer Intake/History Entered On: 01/28/2013 13:03 PICKING MACHINE OPERATOR HELPER Performed On: 01/28/2013 13:00 PICKING MACHINE OPERATOR HELPER by FRANCOISE AVILA Intake Systolic Blood Pressure : 110 mmHg Diastolic Blood Pressure : 60 mmHg NIBP Mean : 77 mmHg BP Location : Right upper extremity Blood Pressure Cuff Size : Large Actual Weight : 114.8 kg(Converted to: 253 lb 1 oz) Weight Source : Standing scale Dosing Weight Clinic : 114.8 kg FRANCOISE AVILA - 01/28/2013 13:00 PICKING MACHINE OPERATOR HELPER General Info Information Given By : Patient Preferred Communication Mode : Verbal Languages : Azerbaijani FRANCOISE AVILA - 01/28/2013 13:00 PICKING MACHINE OPERATOR HELPER Subjective Pain Symptoms : No FRANCOISE AVILA - 01/28/2013 13:00 PICKING MACHINE OPERATOR HELPER Dependent Habits Tobacco Use/Currently Using : No Exposure to Tobacco Smoke : Other: never Smoking Status : Never smoker FRANCOISE AVILA - 01/28/2013 13:00 PICKING MACHINE OPERATOR HELPER Source: [facility] Iizuu Document Id: [id number] PICKING MACHINE OPERATOR HELPER!20 ING MACHINE OPERATOR HELPER documented in this encounter Plan of Treatment Upcoming Encounters Date Type Specialty Care Team Description 02/04/2022 Office Visit Orthopedic Surgery Deon Herrera M.D. [address] [place], [place] [phone] (Wo rk) documented as of this encounter Visit Diagnoses Not on filedocumented in this encounter
--- OUTSIDE RECORDS SUMMARY | 2022-01-25 16:43 | XMS_ITS | Encounter Summary ---
:1955 Author Organization [facility] Address [address] [place] [address] Care Team Providers Name Role Phone Unavailable Primary Care Provider Unavailable Encounter Details Date Type Department Care Team Description 07/10/2012 Hospital Encounter HX [facility] Guido Man M.D. [address] [place] [address], [address] [place] [address] (Wo rk) Social History Tobacco [...] do you attend protestant or Never 2021 judaism services? Do you [...] cell phone number ( ) Source: [facility] POWERCHART Document Id: [id number] Electronically signed by Priya [facility] Licensed Insurance Sales Agent [id number] at 08/14/2016 9:47 AM CDT Telephone Encounter [...] cell phone number ( ) Source: [facility] POWERCHART Document Id: [id number] Electronically signed by Priya, [facility] Licensed Insurance Sales Agent [id number] at 08/14/2016 9:47 AM CDT Telephone Encounter [...] cell phone number ( ) Source: [facility] POWERCHART Document Id: [id number] Electronically signed by Priya [facility] Licensed Insurance Sales Agent [id number] at 08/14/2016 9:47 AM CDT Telephone Encounter - Yobani Man M.D. - 07/13/2012 12:00 AM CDT [id number] I phoned Ms. Santamaria today to discuss [...] MD On: 07/15/2012 10:41 AM Source: [facility] MHSDOLBEYNONRADSYS Document Id: [id number] Miscellaneous - Yobani Man M.D. - 07/10/2012 2:30 PM CDT [place] [address] Visit Information Name: FANTA SANTAMARIA [facility] Number: [id number] Current Date: 07/10/2012 14:30:52 [...] Appointments found Your Goals/Additional instructions: Source: [facility] POWERCHART Document Id: [id number] Miscellaneous - Yobani Man M.D. - 07/10/2012 2:30 PM CDT [place] [address] Visit Information Name: FANTA SANTAMARIA [facility] Number: [id number] Visit Date: 07/10/2012 14:30:51 [...] provider for clarification. Additional Information: Source: [facility] New RelicCHART Document Id: [id number] Miscellaneous - Francoise Avila P.A.-C. - 07/10/2012 1:07 PM CDT Adult Religious Educator Intake/History Adult Religious Educator Intake/History Entered On: 07/10/2012 13:07 CDT Performed [...] Information Given By : Patient Languages : Afghan FRANCOISE AVILA - 07/10/2012 13:07 CDT Subjective Pain Symptoms : No FRANCOISE AVILA - 07/10/2012 13:07 CDT Dependent Habits Tobacco Use/Currently Using : No Exposure to Tobacco Smoke : Other: never Smoking Status : Never smoker FRANCOISE AVILA - 07/10/2012 13:07 CDT Source: [facility] Haolianluo Document Id: [id number] CDT!19 documented in this encounter Plan of Treatment Upcoming Encounters Date Type Specialty Care Team Description 02/04/2022 Office Visit Orthopedic Surgery Deon Herrera M.D. [address] [place] [phone] (Wo rk) documented as of this encounter Visit Diagnoses Not on filedocumented in this encounter
--- OUTSIDE RECORDS SUMMARY | 2022-01-25 16:43 | XMS_ITS | Encounter Summary ---
:1955 Author Organization [facility] Address [address] [place] [address] Care Team Providers Name Role Phone Unavailable [...] do you attend mormon or Never 2021 oriental orthodox services? Do [...] Orthopedic Surgery Deon Herrera M.D. [address] [place], [place] [phone] (Wo rk) documented as of this encounter Visit Diagnoses Not on filedocumented in this encounter
--- OUTSIDE RECORDS SUMMARY | 2022-01-25 16:43 | XMS_ITS | Encounter Summary ---
:1955 Author Organization [facility] Address [address] [place] [address] Care Team Providers Name Role Phone Unavailable Primary Care Provider Unavailable Encounter Details Date Type Department Care Team Description 04/30/2012 Hospital Encounter HX [facility] Guido Man M.D. [address] [place] [address], [address] [place] [address] (Wo rk) Social History Tobacco [...] Comments Blood Pressure 138/70 04/30/2012 12:49 PM MORNING BABYSITTER Pulse - - Temperature - - Respiratory Rate - - Oxygen Saturation - - Inhaled Oxygen Concentration - - Weight 117 kg (257 lb 15 oz) 04/30/2012 12:49 PM MORNING BABYSITTER Height - - Body Mass Index 38.2 [...] Man M.D. - 04/30/2012 12:15 PM CST [id number] CHIEF COMPLAINT / REASON FOR VISIT Low [...] joints performed on December 05, 2011, at [facility]. She had been doing well until a [...] time 30 minutes Yobani Man M.D./don DOCID: [id number] Electronically Signed By: YOBANI MAN MD On: 05/11/2012 03:25 PM Modified by and Electronically Signed by: YOBANI MAN MD On: 05/11/2012 03:25 PM Source: [facility] MHSDOLBEYNONRADSYS Document Id: [id number] ING BABYSITTER documented in this encounter Miscellaneous Notes Telephone Encounter - Francoise Avila P.A.-C. - 05/15/2012 4:50 PM MORNING BABYSITTER Phone Message Document Contains Addenda Addendum by YOBANI MAN MD on 18 May 2012 12:49:43 MORNING BABYSITTER From: YOBANI MAN MD To: FRANCOISE AVILA; Sent: 05/18/2012 12:49:43 MORNING BABYSITTER Subject: RE: Phone Message Done. Thanks. From: FRANCOISE AVILA To: YOBANI MAN MD; Sent: 05/15/2012 16:50:00 MORNING BABYSITTER Subject: Phone Message Caller is: ( ) Patient ( ) Mother ( ) Father ( ) Spouse ( ) Daughter ( ) Son ( ) Pharmacy ( ) Other: Physician: Donovan Patient MRN #: Reason for Call: Yaz is staying at [facility] and the physical therapist there is wondering [...] back cell phone number ( ) Source: [facility] DxNA Document Id: [id number] Telephone Encounter - Francoise Avila P.A.-C. - 05/11/2012 9:16 AM MORNING BABYSITTER Phone Message Document Contains Addenda Addendum by YOBANI MAN MD on 11 May 2012 09:44:37 MORNING BABYSITTER From: YOBANI MAN MD To: FRANCOISE AVILA; Sent: 05/11/2012 09:44:37 MORNING BABYSITTER Subject: RE: Phone Message Thank you for letting me know. From: FRANCOISE AVILA To: YOBANI MAN MD; Sent: 05/11/2012 09:16:52 MORNING BABYSITTER Subject: Phone Message Caller is: ( ) Patient ( ) Mother ( ) Father ( ) Spouse ( ) Daughter ( ) Son ( ) Pharmacy ( ) Other: Physician: Donovan Patient MRN #: Reason for Call: Yaz wanted to let you know that she was admitted to the [facility], because the pain got worse. Message: [...] ( ) Source: [facility] POWERCHART Document Id: [id number] Electronically signed by Conversion, [facility] Cleat Maker [id number] at 08/14/2016 6:05 PM CDT Miscellaneous - Yobani Man M.D. - 05/08/2012 12:00 AM CST [id number] [facility] May 08, 2012 DEPARTMENT OF ORTHOPEDIC SPINE SURGERY [address] [place] [address] RE: Yaz Santamaria : 1955 To Whom [...] facet joints performed in November 2011 in [employer]. At the end of March, she started [...] MAN MD On: 05/11/2012 08:44 AM Source: [facility] MHSDOLBEYNONRADSYS Document Id: [id number] ING BABYSITTER Telephone Encounter - Yobani Man M.D. - 05/08/2012 12:00 AM CST [id number] I did speak with Dr. Webster who read Ms. Santamaria's lumbar spine MRI. He did feel that there was an epidural hematoma likely secondary to bleeding that occurred with a disk herniation. I still donot have the actual images to review. We called [facility] and they said the images were mailed immediately after the MRI was performed. I spoke again with Ms. Santamaria. She has had no worsening neurologic symptoms. With the findings on her MRI and her persistent pain, I feel that it isbest that she meet with one of the spine surgeons at [facility] to obtain their opinion with respect to potential management options at this time. Ms. Santamaria is also in agreement with this. I will plan on being in contact with Ms. Santamaria after her consultation at [facility] and she knows to be in contact with me prior to that time if she notes any worsening or worrisome symptoms which we went over in detail today. She voiced agreement and understanding with this plan. Yobani Man M.D./madelaine DOCID: [id number] Electronically Signed By: YOBANI MAN MD On: 05/11/2012 05:42 PM Modified by and Electronically Signed by: YOBANI MAN MD On: 05/11/2012 05:42 PM Source: [facility] MHSDOLBEYNONRADSYS Document Id: [id number] ING BABYSITTER Telephone Encounter - Yobani Man M.D. - 05/07/2012 12:00 AM CST [id number] I reviewed the report of Ms. Santamaria's lumbar spine MRI that was performed yesterday at [facility]. I do not have the images as [...] with this plan. Yobani Man M.D./madelaine DOCID: [id number] Electronically Signed By: YOBANI MNA MD On: 05/12/2012 11:32 AM Modified by and Electronically Signed by: YOBANI MAN MD On: 05/12/2012 11:32 AM Source: [facility] MHSDOLBEYNONRADSYS Document Id: [id number] ING BABYSITTER Telephone Encounter - Francoise Avila P.A.-C. - 05/04/2012 11:04 AM MORNING BABYSITTER Phone Message Document Contains Addenda Addendum by YOBANI MAN MD on 04 May 2012 11:38:04 MORNING BABYSITTER From: YOBANI MAN MD To: FRANCOISE AVILA; Sent: 05/04/2012 11:38:04 MORNING BABYSITTER Subject: RE: Phone Message Please obtain a MRI of her lumbar spine with follow-up with me afterward. Thanks. From: FRANCOISE AVILA To: YOBANI MAN MD; Sent: 05/04/2012 11:04:36 MORNING BABYSITTER Subject: Phone Message Caller is: ( ) [...] back cell phone number ( ) Source: [facility] POWERCHART Document Id: [id number] Telephone Encounter - Francoise Avila P.A.-C. - 05/01/2012 11:58 AM MORNING BABYSITTER Phone Message Document Contains Addenda Addendum by YOBANI MAN MD on 01 May 2012 14:01:27 MORNING BABYSITTER From: YOBANI MAN MD To: FRANCOISE AVILA; Sent: 05/01/2012 14:01:27 MORNING BABYSITTER Subject: RE: Phone Message Thanks. Addendum by FRANCOISE AVILA on 01 May 2012 13:18:04 MORNING BABYSITTER From: FRANCOISE AVILA To: YOBANI MAN MD; Sent: 05/01/2012 13:18:04 MORNING BABYSITTER Subject: RE: Phone Message They did recheck her blood pressure at noon and it was much better at 124/80. She will split the tizanidine pills in half and see if that helps. Addendum by YOBANI MAN MD on 01 May 2012 12:04:31 MORNING BABYSITTER From: YOBANI MAN MD To: FRANCOISE AVILA; Sent: 05/01/2012 12:04:31 MORNING BABYSITTER Subject: RE: Phone Message Yes, she can cut them in half. Just use 1/2 tab currently to see if that helps. Thanks. From: FRANCOISE AVILA To: YOBANI MAN MD; Sent: 05/01/2012 11:58:59 MORNING BABYSITTER Subject: Phone Message Caller is: ( ) [...] back cell phone number ( ) Source: [facility] POWERCHART Document Id: [id number] Miscellaneous - Yobani Man M.D. - 04/30/2012 1:54 PM CST [place] [address] Visit Information Name: YAZ SANTAMARIA [facility] Number: [id number] Current Date: 04/30/2012 13:54:58 Physicians [...] instructions: Source: [facility] POWERCHART Document Id: [id number] ING BABYSITTER Miscellaneous - Yobani Man M.D. - 04/30/2012 1:54 PM CST [place] [address] Visit Information Name: YAZ SANTAMARIA [facility] Number: [id number] Visit Date: 04/30/2012 13:54:57 Attending [...] Information: Source: [facility] POWERCHART Document Id: [id number] ING BABYSITTER Miscellaneous - Francoise Avila P.A.-C. - 04/30/2012 1:54 PM CST Reminder Msg From: FRANCOISE AVILA To: FRANCOISE AVILA; Sent: 04/30/2012 13:54:35 MORNING BABYSITTER Show up: 05/07/2012 13:54:00 MORNING BABYSITTER Subject: Reminder Msg Please Remember to: see how she is feeling PATIENT: ( ) Call Patient ( ) Ask Patient to ( ) ( ) Call Relative ( ) Schedule Patient ( ) ( ) Call for Box Repairer ( ) Follow up on Results ( ) Other: PROVIDER: ( ) Call Physician ( ) Call Pharmacist ( ) Call Lab ( ) Other: Special Instructions: Comments: Source: [facility] POWERCHART Document Id: [id number] Miscellaneous - Francoise Avila P.A.-C. - 04/30/2012 12:49 PM CST Adult Solutions Market Consultant Intake/History Adult Solutions Market Consultant Intake/History Entered On: 04/30/2012 12:49 MORNING BABYSITTER Performed On: 04/30/2012 12:49 MORNING BABYSITTER by FRANCOISE AVILA Intake Systolic Blood Pressure : 138mmHg Diastolic Blood Pressure : 70mmHg NIBP Mean : 93mmHg BP Location : Right upper extremity Blood Pressure Cuff Size : Large Actual Weight : 117.0kg(Converted to: 257lb 15oz) Weight Source : Standing scale Dosing Weight Clinic : 117.00kg FRANCOISE AVILA - 04/30/2012 12:49 MORNING BABYSITTER General Info Information Given By : Patient Preferred Communication Mode : Verbal Languages : Azerbaijani FRANCOISE AVILA - 04/30/2012 12:49 MORNING BABYSITTER Subjective Pain Symptoms : No FRANCOISE AVILA - 04/30/2012 12:49 MORNING BABYSITTER Dependent Habits Tobacco Use/Currently Using : No Exposure to Tobacco Smoke : Other: never Smoking Status : Never smoker FRANCOISE AVILA - 04/30/2012 12:49 MORNING BABYSITTER Allergy Allergies (Active) penicillins Estimated Onset Date: Unspecified ; Created By: FRANCOISE AVILA; Reaction Status:Active ; Category: Drug ; Substance: penicillins ; Type: Allergy ; Updated By: FRANCOISE AVILA; Reviewed Date: 03/05/2012 14:12 MORNING BABYSITTER Source: [facility] POWERCHART Document Id: [id number] ING BABYSITTER documented in this encounter Plan of Treatment Upcoming Encounters Date Type Specialty Care Team Description 02/04/2022 Office Visit Orthopedic Surgery Deon Herrera M.D. [address] [place] [phone] (Wo rk) documented as of this encounter Visit Diagnoses Not on filedocumented in this encounter
--- OUTSIDE RECORDS SUMMARY | 2022-01-25 16:44 | XMS_ITS | Encounter Summary ---
:1955 Author Organization [facility] [place] [facility] Address [address] [place] [address] Care Team Providers Name Role Phone Unavailable Primary Care Provider Unavailable Encounter Details Date Type Department Care Team Description 05/08/2011 Hospital Encounter HX NO MAPPING Clay Man M.D. [address] [place] [address] , [address] [place] [address] (Wo rk) Social History Tobacco [...] do you attend lutheran or Never 2021 samaritan services? Do you [...] Orthopedic Surgery Deon Herrera M.D. [address] [place], [place] [phone] (Wo rk) documented as of this encounter Visit Diagnoses Not on filedocumented in this encounter
--- OUTSIDE RECORDS SUMMARY | 2022-01-25 16:44 | XMS_ITS | Encounter Summary ---
:1955 Author Organization [facility] Address [address] [place] [address] Care Team Providers Name Role Phone Unavailable Primary Care Provider Unavailable Encounter Details Date Type Department Care Team Description 04/09/2011 Hospital Encounter [facility]X [facility] Rob Lemons M.D. [address] [place] [address], [address] [place] [address] (Wo rk) Social History Tobacco [...] do you attend catholic or Never 2021 catholic services? Do you [...] Visit Orthopedic Surgery Deon Herrera M.D. [address] [place], [place] [phone] (Wo rk) documented as of this encounter Visit Diagnoses Not on filedocumented in this encounter
--- OUTSIDE RECORDS SUMMARY | 2022-01-25 16:44 | XMS_ITS | Encounter Summary ---
:1955 Author Organization [facility] Address [address] [place] [address] Care Team Providers Name Role Phone Unavailable Primary Care Provider Unavailable Encounter Details Date Type Department Care Team Description 07/30/2011 Hospital Encounter HX [facility] Guido Man M.D. [address] [place] [address], [address] [place] [address] (Wo rk) Social History Tobacco [...] do you attend amish or Never 2021 druze services? Do you [...] Man M.D. - 07/30/2011 12:00 AM CDT [id number] CHIEF COMPLAINT / REASON FOR VISIT Right [...] she saw her primary care physician in [place]. He ordered a MRI of the right [...] MAN MD On: 08/09/2011 11:52 AM Source: [facility] MHSDOLBEYNONRADSYS Document Id: [id number] Yobani Man M.D. - 07/30/2011 12:00 AM CDT [id number] DIAGNOSIS 1. Right knee pain 2. Right [...] MAN MD On: 08/09/2011 11:51 AM Source: [facility] MHSDOLBEYNONRADSYS Document Id: [id number] documented in this encounter Miscellaneous Notes Miscellaneous [...] Patient ( ) ( ) Call for Organ Grinder ( ) Follow up on Results ( ) Other: PROVIDER: ( ) Call Physician ( ) Call Pharmacist ( ) Call Lab ( ) Other: Special Instructions: Comments: Source: [facility] POWERCHART Document Id: [id number] Miscellaneous - Francoise Avila P.A.-C. - 08/01/2011 [...] Patient ( ) ( ) Call for Organ Grinder ( ) Follow up on Results ( ) Other: PROVIDER: ( ) Call Physician ( ) Call Pharmacist ( ) Call Lab ( ) Other: Special Instructions: Comments: Source: [facility] POWERCHART Document Id: [id number] Miscellaneous - Yobani Man M.D. - 07/30/2011 2:17 PM CDT Ambulatory [place] [address] Visit Information Name: YAZ SANTAMARIA Current Date: [...] No Appointments found Your Goals/Additional instructions: Source: [facility] POWERCHART Document Id: [id number] Yobani Brady M.D. - 07/30/2011 2:17 PM CDT [place] [address] Visit Information Name: YAZ SANTAMARIA Visit Date: [...] your provider for clarification. Additional Information: Source: [facility] POWERCHART Document Id: [id number] Any - Francoise Avila P.A.-C. - 07/30/2011 10:49 AM CDT Adult Waistband Setter Lockstitch Intake/History Adult Waistband Setter Lockstitch Intake/History Entered On: 07/30/2011 10:49 CDT Performed [...] By: FRANCOISE AVILA; Reviewed Date: 04/25/2011 13:43 HAND LENS POLISHER Source: [facility] POWERCHART Document Id: [id number] CDT!16 documented in this encounter Plan of Treatment Upcoming Encounters Date Type Specialty Care Team Description 02/04/2022 Office Visit Orthopedic Surgery Deon Herrera M.D. [address] [place] [address] [phone] (Wo rk) documented as of this encounter Visit Diagnoses Not on filedocumented in this encounter
--- OUTSIDE RECORDS SUMMARY | 2022-01-25 16:44 | XMS_ITS | Encounter Summary ---
:1955 Author Organization [facility] Address [address] [place] [address] Care Team Providers Name Role Phone Unavailable Primary Care Provider Unavailable Encounter Details Date Type Department Care Team Description 10/09/2009 Hospital Encounter HX [facility] Guido Man M.D. [address] [place] [address], [address] [place] [address] (Wo rk) Social History Tobacco [...] do you attend sabianist or Never 2021 voodoo services? Do you [...] Man M.D. - 10/09/2009 12:00 AM CDT [id number] IMPRESSION/REPORT/PLAN 1. Right knee pain 2. Right [...] are scheduled to go on vacation to [facility] for three weeks and she is [...] Physical Medicine & Rehabilitation CC: Dr. Harris [facility] Electronically Signed By:YOBANI MAN MD On 10/11/2009 05:43 PM Modified by:YOBANI MAN MD On 10/11/2009 05:43 PM Source: [facility] MHSDOLBEYNONRADSYS Document Id: [id number] documented in this encounter Procedure Notes Yobani [...] Physical Medicine & Rehabilitation CC: Dr. Harris [facility] Electronically Signed By:YOBANI MAN MD On 10/11/2009 05:43 PM Modified by:YOBANI MAN MD On 10/11/2009 05:43 PM Source: [facility] MHSDOLBEYNONRADSYS Document Id: [id number] documented in this encounter Miscellaneous Notes Miscellaneous [...] Patient ( ) ( ) Call for Hard Metals Engraver Hand ( ) Follow up on Results ( ) Other: PROVIDER: ( ) Call Physician ( ) Call Pharmacist ( ) Call Lab ( ) Other: Special Instructions: Comments: Source: [facility] POWERCHART Document Id: [id number] Miscellaneous - Francoise Avila P.A.-C. - 10/09/2009 2:29 PM CDT Adult Quality Control Inspector Heading Intake/History Adult Quality Control Inspector Heading Intake/History Entered On: 10/09/2009 14:29 CDT Performed [...] AVILA; Reviewed Date: 10/09/2009 14:26 CDT Source: [employer] Document Id: [id number] CDT!12 documented in this encounter Plan of Treatment Upcoming Encounters Date Type Specialty Care Team Description 02/04/2022 Office Visit Orthopedic Surgery Deon Herrera M.D. [address] [place] [phone] (Wo rk) documented as of this encounter Visit Diagnoses Not on filedocumented in this encounter
--- OUTSIDE RECORDS SUMMARY | 2022-01-25 16:44 | XMS_ITS | Encounter Summary ---
:1955 Author Organization [facility] Address [address] [place] [address] Care Team Providers Name Role Phone Unavailable Primary Care Provider Unavailable Encounter Details Date Type Department Care Team Description 04/25/2011 Hospital Encounter HX [facility] Guido Man M.D. [address] [place] [address], [address] [place] [address] (Wo rk) Social History Tobacco [...] do you attend mandaen or Never 2021 hoahaoism services? Do you [...] Comments Blood Pressure 126/80 04/25/2011 1:38 PM MANAGER REGULATORY Pulse - - Temperature - - Respiratory Rate - - Oxygen Saturation - - Inhaled Oxygen Concentration - - Weight 107 kg (235 lb 10.8 oz) 04/25/2011 1:38 PM MANAGER REGULATORY Height - - Body Mass Index - [...] Man M.D. - 04/25/2011 12:00 AM CST [id number] CHIEF COMPLAINT / REASON FOR VISIT Low [...] She is involved in physical therapy at [facility] in [place] primarily working on stretching of her piriformis [...] Physical Medicine & Rehabilitation CC: Dr. Harris [facility] Electronically Signed By: YOBANI MAN MD On: 05/06/2011 10:28 AM Modified by and Electronically Signed by: YOBANI MAN MD On: 05/06/2011 10:27 AM Source: [facility] MHSDOLBEYNONRADSYS Document Id: [id number] GER REGULATORY documented in this encounter Nursing Notes Imelda Culp R.T.(Manish) - 05/23/2011 11:54 AM CST Note sent Progress note from 04/25/[address] Harris in [place]. Electronically Signed By: IMELDA CULP On: 05/23/2011 11:55 AM Source: [facility] POWERCHART Document Id: [id number] GER REGULATORY documented in this encounter Miscellaneous Notes Miscellaneous - Francoise Avila P.A.-C. - 05/09/2011 8:47 AM CST Reminder Msg Document Contains Addenda Addendum by YOBANI MAN MD on 22 May 2011 17:12:13 MANAGER REGULATORY From: YOBANI MAN MD To: FRANCOISE AVILA; Sent: 05/22/2011 17:12:13 MANAGER REGULATORY Show up: 05/22/2011 17:11:00 MANAGER REGULATORY Subject: RE: Reminder Msg She is doing much better. I am going to have her initiate PT. Thanks. From: FRANCOISE AVILA To: YOBANI MAN MD; Sent: 05/09/2011 08:47:55 MANAGER REGULATORY Show up: 05/19/2011 08:47:00 MANAGER REGULATORY Subject: Reminder Please Remember to: see how she is feeling after B facet joint injections PATIENT: ( ) Call Patient ( ) Ask Patient to ( ) ( ) Call Relative ( ) Schedule Patient ( ) ( ) Call for Director Learning Services ( ) Follow up on Results ( ) Other: PROVIDER: ( ) Call Physician ( ) Call Pharmacist ( ) Call Lab ( ) Other: Special Instructions: Comments: Source: [facility] [employer] Document Id: [id number] Miscellaneous - Francoise Avila P.A.-C. - 04/25/2011 1:38 PM CST Adult Agricultural Engineering Technician Intake/History Adult Agricultural Engineering Technician Intake/History Entered On: 04/25/2011 13:39 MANAGER REGULATORY Performed On: 04/25/2011 13:38 MANAGER REGULATORY by FRANCOISE AVILA Intake Systolic Blood Pressure : 126mmHg Diastolic Blood Pressure : 80mmHg NIBP Mean : 95mmHg BP Location : Right upper extremity Blood Pressure Cuff Size : Large Actual Weight : 106.9kg(Converted to: 235lb 11oz) Weight Source : Standing scale Dosing Weight Clinic : 106.90kg FRANCOISE AVILA - 04/25/2011 13:38 MANAGER REGULATORY Subjective Pain Symptoms : No FRANCOISE AVILA - 04/25/2011 13:38 MANAGER REGULATORY Dependent Habits Tobacco Use/Currently Using : No Exposure to Tobacco Smoke : Other: never Smoking Status : Never smoker FRANCOISE AVILA - 04/25/2011 13:38 MANAGER REGULATORY Allergy Allergies (Active) penicillins Estimated Onset Date: Unspecified ; Created By: FRANCOISE AVILA; Reaction Status:Active ; Category: Drug ; Substance: penicillins ; Type: Allergy ; Updated By: FRANCOISE AVILA; Reviewed Date: 10/09/2009 14:26 CDT [facility] Document Id: [id number] MANAGER REGULATORY!16 GER REGULATORY documented in this encounter Plan of Treatment Upcoming Encounters Date Type Specialty Care Team Description 02/04/2022 Office Visit Orthopedic Surgery Deon Herrera M.D. [address] [place] [phone] (Wo rk) documented as of this encounter Visit Diagnoses Not on filedocumented in this encounter
--- OUTSIDE RECORDS SUMMARY | 2022-01-25 16:44 | XMS_ITS | Encounter Summary ---
:1955 Author Organization [facility] Address [address] [place] [address] Care Team Providers Name Role Phone Unavailable Primary Care Provider Unavailable Encounter Details Date Type Department Care Team Description 04/09/2011 Hospital Encounter HX [facility] Rob Lemons M.D. [address] [place] [address], [address] [place] [address] (Wo rk) Social History Tobacco [...] do you attend religion or Never 2021 sabianist services? Do you [...] Visit Orthopedic Surgery Deon Herrera M.D. [address] [place], [place] [phone] (Wo rk) documented as of this encounter Visit Diagnoses Not on filedocumented in this encounter
--- OUTSIDE RECORDS SUMMARY | 2022-01-25 16:44 | XMS_ITS | Encounter Summary ---
:1955 Author Organization [facility] Address [address] [place] [address] Care Team Providers Name Role Phone Unavailable Primary Care Provider Unavailable Encounter Details Date Type Department Care Team Description 07/06/2008 Hospital Encounter HX NO MAPPING Clay Man M.D. [address] [place] [address] , [address] [place] [address] (Wo rk) Social History Tobacco [...] do you attend sabianist or Never 2021 pentecostalism services? Do you [...] Deon Herrera M.D. [address] [place] [address] [phone] (Wo rk) documented as of this [...] However, mild chondrocalcinosis is suspected in the fl dial meniscus which can be associated with [...]
[2022-01-25 16:50] LABS: Slide Review Reflex No
[2022-01-25] MEDS: cephALEXin 500 MG CAPSULE PO (18:01)
[2022-01-25 18:04] LABS: Chloride* 97 mmol/L (96-114); Potassium* 4.5 mmol/L (3.6-5.1); Sodium* 134 mmol/L (135-149)
[2022-01-25 18:06] LABS: Creatinine* 0.7 mg/dL (0.5-1.5); Est. Creatinine Clearance* 56.27; Estimated Glomerular Filt Rate 94 ml/min
[2022-01-25 18:07] LABS: Blood Urea Nitrogen* 16 mg/dL (7-30); Carbon Dioxide* 28 mmol/L (20-32); Glucose* 261 mg/dL (60-115)
[2022-01-25 18:08] LABS: Calcium* 9.5 mg/dL (8.4-10.6)
[2022-01-25 18:09] VITALS: BP 123/71; PULSE 76; RESP 20; TEMP 36.2
[2022-01-25 18:10] LABS: C Reactive Protein* 1.4 mg/dL (0.5-1.0)
== END 2022-01-25 18:10 | disposition home or self-care (01) ==
PROVIDERS: Emergency Provider Family Medicine; PCP Family Medicine
DX: T81.49XA Infection following a procedure, other surgical site, initial encounter (principal)
CPT/HCPCS: 36415; 80048; 85025; 86140; 99283; A9270

== ENCOUNTER 2022-09-21 11:12 | Outpatient (CLI) | payer MEDICARE, BC, SELFPAY | END 2022-09-21 11:13 | disposition home or self-care (01) | PROVIDERS: PCP Family Medicine; Visit Provider Nurse Practitioner Family | DX: M79.602 Pain in left arm (principal); I10 Essential (primary) hypertension | CPT/HCPCS: 85379 ==

== ENCOUNTER 2022-11-06 13:57 | Outpatient (CLI) | payer MEDICARE, BC, SELFPAY | END 2022-11-06 13:58 | disposition home or self-care (01) | LOC: NFLDREF 11-09 10:18 | PROVIDERS: PCP Family Medicine; Referring Provider Family Medicine; Visit Provider Family Medicine | DX: N39.0 Urinary tract infection, site not specified (principal); N30.00 Acute cystitis without hematuria | CPT/HCPCS: 87086 ==

== ENCOUNTER 2022-11-20 13:02 | Outpatient (CLI) | payer MEDICARE, BC, SELFPAY | END 2022-11-20 13:03 | disposition home or self-care (01) | LOC: NFLDREF 11-22 06:47 | PROVIDERS: PCP Family Medicine; Referring Provider Family Medicine; Visit Provider Family Medicine | DX: R30.0 Dysuria (principal); N39.0 Urinary tract infection, site not specified; E11.9 Type 2 diabetes mellitus without complications | CPT/HCPCS: 87086 ==

== ENCOUNTER 2023-04-19 19:45 | Outpatient (CLI) | payer MEDICARE, BC, SELFPAY ==
--- OUTSIDE RECORDS SUMMARY | 2023-04-22 12:36 | XMS_ITS | Encounter Summary ---
Author Name Unknown Organization [place] Address [address] [place] [address] Care Team Providers Care Tanning Wheel Filler Name Role Phone Denise Harris MD Primary Care Provider Anoop Emery MD Unavailable [phone] Inez Peck MD Unavailable [phone] Inez Peck MD Unavailable [phone] Encounter Details Date Type Department Care Team (Late st Contact Info) Description 10/31/2020 MyC Medical Advice [facility] [place] [address] [facility] [address] [place] [address] Inez Peck MD [address] [facility] [address] [place] [address] Social History Tobacco Use Types Packs/Day Years Used Date Smoking Tobacco: Former Smokeless Tobacco: Never Comments:quit 1986 Alcohol Use Standard Drinks/Week Comments Not Asked 0 (1 standard drink = 0.6 oz pur e alcohol) PHQ-2 Answer Date Recorded PHQ-2 Score 1 11/02/2020 Sex and Gender Information Value Date Recorded Sex Assigned at Female 10/30/2020 4:00 PM CDT Gender Identity Female 10/30/2020 4:00 PM CDT Sexual Orientation Bisexual 10/30/2020 4: 00 PM CDT COVID-19 Exposure Response Date Recorded In the last month, have you been in contact with someone who was confirmed or suspected to have Coronavirus / COVID-19? No / Unsure 11/02/2020 1:49 PM CDT documented as of this encounter Plan of Treatment Not on file documented as of this encounter Visit Diagnoses Not on filedocumented in this encounter Care Teams Tanning Wheel Filler Relationship Specialty Start Date End Date Denise Harris MD [facility] [address] [place] [address] PCP - General Internal Medicine 01/17/15 Anoop Emery MD [facility] [address] [place] [address] Referring Physician Family Medicine 09/15/20 Inez Peck MD [address] [place] [address] [id number] Urology 09/15/20 Inez Peck MD [address] [place] [address] [phone] Assigned Surgical Provider 11/12/20 05/10/22 documented as of this encounter
--- OUTSIDE RECORDS SUMMARY | 2023-04-22 12:36 | XMS_ITS | Clinical Summary ---
Author Name Unknown Organization [email or web address] Address [place] [address] Care Team Providers Care Head And Neck Surgeon Name Role Phone Anoop Emery MD Primary Care Provider [phone] Allergies Active Allergy Reactions Criticality Noted Date Comments Mupirocin *Unknown Unknown 09/10/2018 Medications Medication Sig Dispensed Refills Start Date End Date Status MULTIVITAMIN TAB take 1 tablet by oral route once daily with food 0 12/30/2006 Active blood glucose control, normal (CONTOUR NEXT LEV 2 CONTROL JONNY) soln U UTD 0 03/12/2017 Active CONTOUR NEXT TEST STRIPS strip 2 times daily. 2 09/15/2017 Active venlafaxine (EFFEXOR) 75 mg tabletIndications :Major depressive disorder, recurrent, moderate (HC) Take 1 tablet by mouth every morning. 90 tablet 3 10/21/2018 Active venlafaxine (EFFEXOR XR) 150 mg Extended-Release capsuleIndication s:Major depressive disorder, recurrent, moderate (HC) Take 1 capsule by mouth once daily with a meal. 90 capsule 3 10/21/2018 Active hydroCHLOROthiazi de (HCTZ) 25 mg tabletIndications :Chronic diastolic CHF (congestive heart failure) (HC) Take 1 tablet by mouth once daily. 90 tablet 0 04/08/2019 Active glipiZIDE extended-release (GLUCOTROL XL) 5 mg Extended-Release tablet Take 5 mg by mouth. 0 05/15/2021 Activ e Xarelto 10 mg tablet Take 10 mg by mouth. 0 07/04/2021 Acti ve pregabalin (LYRICA) 150 mg capsuleIndication s:Fibromyalgia Take 1 Capsule (150 mg) by mouth two times daily. 20 Capsule 0 12/28/2021 Active acetaminophen (TYLENOL EXTRA STRGTH) 500 mg tabletIndications :Pain Take 2 Tablets (1,000 mg) by mouth four times daily. Max acetaminophen dose: 4000mg in 24 hrs. 0 12/28/2021 Active alpha lipoic acid 600 mg capsule Take 1 Capsule (600 mg) by mouth once daily. 0 12/28/2021 Active coenzyme q10 (Co Q-10) 100 mg cap Take 1 Capsule (100 mg) by mouth once daily. 0 12/28/2021 Active Cranberry 400 mg capsule Take 1 Capsule (400 mg) by mouth once daily. 0 12/28/2021 Active diazePAM (VALIUM) 5 mg tabletIndications :RLS (restless legs syndrome) Take 1 Tablet (5 mg) by mouth 3 times daily if needed. 0 12/28/2021 Active fluticasone (50 mcg per actuation) nasal solution (FLONASE)Indicati ons:Seasonal allergies Inhale 1 Campbell to both nostrils two times daily. 0 12/28/2021 Active Ginkgo Biloba 120 mg tablet Take 1 Tablet (120 mg) by mouth once daily. 0 12/28/2021 Active insulin aspart, U-100, (NOVOLOG FLEXPEN) 100 unit/mL (3 mL) penIndications:Ty pe 2 diabetes mellitus without complication, with long-term current use of insulin (HC) Inject 8 units subcutaneous three times daily before meals. 0 12/28/2021 Active insulin glargine, U-100, (Lantus Solostar U-100 Insulin) 100 unit/mL (3 mL) penIndications:Ty pe 2 diabetes mellitus without complication, with long-term current use of insulin (HC) Inject 22 units subcutaneous once daily. Product desired: LANTUS SOLOSTAR 0 12/29/2021 Active metFORMIN (GLUCOPHAGE) 500 mg tabletIndications :Type 2 diabetes mellitus without complication, with long-term current use of insulin (HC) Take 2 Tablets (1,000 mg) by mouth two times daily with meals. 0 12/28/2021 Active polyethylene glycoL (MIRALAX) 17 gram/dose powder Mix 1 scoop (17 g) in liquid then take by mouth once daily. 0 12/29/2021 Active nystatin (MYCOSTATIN) ointmentIndicatio ns:Dermatitis Apply topically to affected area(s) 2 times daily if needed. 0 12/28/2021 Active fish,bora,flax oils-om3,6,9no1 ([place] 3-6-9) 1,200 mg cap Take 1 capsule. by mouth once daily. 0 12/28/2021 Active pramipexole (MIRAPEX) 0.125 mg tabletIndications :RLS (restless legs syndrome),Fibromy algia Take 2 Tablets (0.25 mg) by mouth at bedtime. 0 12/28/2021 Active pramipexole (MIRAPEX) 0.125 mg tablet Take 3 Tablets (0.375 mg) by mouth once daily. Take at 1pm 0 12/29/2021 Active iron,carbonyl-vit escobedo C (VITRON C) 65 mg iron- 125 mg Delayed-Release tablet Take 1 Tablet by mouth two times daily with meals. 0 12/28/2021 Active diclofenac topical (Voltaren) 1 % gelIndications:Ot her chronic pain Apply topically to affected area(s) 4 times daily if needed. 0 12/28/2021 Active oxyCODONE (ROXICODONE) 5 mg immediate release tabletIndications :Postoperative pain after spinal surgery Take 1 Tablet (5 mg) by mouth every 4 hours if needed for Pain. 30 Tablet 0 01/02/2022 Active traZODone (DESYREL) 100 mg tablet Take 1 Tablet (100 mg) by mouth at bedtime. 0 12/28/2021 Active Active Problems Problem Noted Date Diagnosed Date Cervical myelopathy 12/29/2021 Overview: S/p cervical laminoplasty Scoliosis 12/29/2021 HTN (hypertension) 12/29/2021 RLS (restless legs syndrome) 12/29/2021 Type 2 diabetes mellitus with peripheral neuropa thy 06/13/2021 Obesity, morbid 06/13/2021 Type 2 diabetes mellitus wit hout complication, without long-term current use of insulin 10/21/2018 Achilles tendinitis of both lower extremities Adjustment disorder with mixed anxiety and depre ssed mood 09/26/2011 Osteoarthrosis, unspecified whether generalized or localized, lower leg 03/25/2007 Other specified arthropathy, hand 03/25/2007 Myalgia and myositis, unspecified 12/30/2006 Mitral valve disorders 12/30/2006 Unspecified sleep apnea 12/30/2006 Overview: does not use CPAP Esophageal reflux 12/30/2006 Unspecified constipation 12/30/2006 Alcohol abuse, in remission 12/30/2006 Overview: SOBER SINCE 1985 Major depressive disorder, recurrent, moderate 0 07/14/2006 Immunizations Name Administration Dates Next Due Hepatitis A (Adult) 07/23/2006 Influenza A (H1N1), Inactivated 02/06/2009 Influenza, High-dose Quadriv alent Inactivated 12/20/2021 Influenza, IIV3 (Age >=3 years) 12/31/19 18,12/12/2016,01/11/2016,2014,12/26/2013,02/15/2013,12/21/2011,1 ,01/01/2010,11/30/2008, 007 Influenza, Inactivated IIV3 (Age 65+ Years) Preserv Free 01/03/2021,01/07/2019 Pneumococcal Poly,23-Valent (Pneumovax) 07/02/2021 Pneumococcal conj 13-Valent (Prevnar 13) 09/22/2019 Td, Preservative Free (age > = 7 Years) 07/23/2006 Tdap 06/21/2014 Tetanus/Diptheria 07/23/2006 Zoster (Zostavax-ZVL, live) 05/13/2014 Family History Medical History Relation Name Comments Alcohol/Drug Brother alcoholic Cancer Father PROSTATE Diabetes Father Heart Disease Father 80'S Hypertension Father Other Father bypass Cancer-breast Maternal Aunt AGE 50'S Relation Name Status Comments Brother Father Maternal Aunt Mother Social History Tobacco Use Types Packs/Day Years Used Date Smoking Tobacco: Former Cigarettes 1 15.7 1 972 - 12/15/1986 Smokeless Tobacco: Never Tobacco Cessation:Counseling Given: Yes Alcohol Use Standard Drinks/Week Comments No 0 (1 standard drink = 0.6 oz pur e alcohol) sober x 33 years. PHQ-2 Answer Date Recorded PHQ-2 Score 1 09/07/2018 Social Connections Answer Date Recorded Frequency of Communication with Friends and Fami ly Not on file 06/13/2021 Sex and Gender Information Value Date Recorded Sex Assigned at Not on file Gender Identity Not on file Sexual Orientation Not on file Obstetrics History Para Term AB IAB SAB Ectopic Multiple Livin g Live Births 0 Last Filed Vital Signs Vital Sign Reading Time Taken Comments Blood Pressure 146/75 09/05/2021 2:54 PM CDT Pulse 87 09/05/2021 2:54 PM CDT Temperature 36.8 ??C (98.3 ??F) 06/13/2021 4:56 PM CD T Respiratory Rate 18 12/08/2018 3:14 PM CDT [...] 45-75 1998 Zoster (shingles) series for age 50+ (2 of 3) 07/08/2014 05/13/2014 Colonoscopy through age 75 07/13/2017 07/14/2007 DEXA/DXA scan for age 65+ 2018 Medicare Wellness for age 65+ 2018 Depression screening for age 12+ 09/11/2019 09/10/2018, 09/09/2018, 09/07/2018 BMI (ht and wt on same day) for age 18+ 06/13/2022 06/13/2021, 03/11/2019, 02/18/2019, Additional history exists COVID-19 vaccine series ( season) 2022 12/11/2021, 02/07/2021, 05/19/2020 Influenza for age 65+ 11/15/2022 12/20/2021 , 01/03/2021, 01/07/2019, Additional history exists Lipids for age 45-75 12/09/2023 12/08/2018 Tetanus booster 06/21/2024 06/21/2014, 07/23/2006 Tdap Completed 06/21/2014 Hepatitis C screening for ag e 18-79 Completed 01/07/2019 Pneumococcal series for age 65+ Completed 2, 09/22/2019 Advance Directives Latest Code Status on File Code Status Date Activated Date Inactivated Comments Full Code 2005 1:25 PM 05/17/2005 7:54 PM Code Status History Code Status Date Activated Date Inactivated Comments Full Code 2005 9:32 AM 2005 1:25 PM Care Teams Head And Neck Surgeon Relationship Specialty Start Date End Date Anoop Emery MD [address] [place] [address] PCP - General Family Practice 04/09/21
--- OUTSIDE RECORDS SUMMARY | 2023-04-22 12:36 | XMS_ITS | Referral Summary ---
Author Name Unknown Organization [facility] Address [address] [place] [id number] Care Team Providers Care Hide Mill Worker Name Role Phone Denise Harris MD Primary Care Provider Anoop Emery MD Unavailable [phone] Inez Peck MD Unavailable [phone] Allergies Active Allergy Reactions Criticality Noted Date Comments Food Diarrhea 02/06/2015 Red Beets Medications Medication Sig Dispensed Refills Start Date End Date Status DULoxetine (CYMBALTA) 60 MG capsule Take 60 mg by mouth 2 times daily 0 Active eszopiclone (LUNESTA) 2 MG tablet Take 2 mg by mouth At Bedtime 0 Active hydrochlorothiazide (HYDRODIURIL) 25 MG tablet Take 25 mg by mouth daily 0 Active sennosides (SENOKOT) 8.6 MG tablet Take 1 tablet by mouth 2 times daily 0 Active pregabalin (LYRICA) 150 MG capsule Take 150 mg by mouth 3 times daily 0 Active [place]-3 Fatty Acids (OMEGA 3 PO) Take by mouth 2 times daily 0 Active Turmeric 500 MG CAPS Take by mouth 2 times daily 0 Active Coenzyme Q10 (COQ10) 200 MG CAPS Take by mouth daily 0 Acti ve Ginkgo Biloba 40 MG TABS Take 120 mg by mouth daily 0 Active Multiple Vitamins-Minerals (WOMENS DAILY FORMULA PO) Take by mouth 2 times daily Two tablets twice daily 0 Active IRON PO Take 65 mg by mouth 2 times daily 0 Active amoxicillin (AMOXIL) 500 MG capsule Take 500 mg by mouth as needed (prior to dental work) 0 Active Valerian 500 MG CAPS Take 500 mg by mouth as needed 0 Active hydrocortisone (ANUCORT-HC) [address] 25 mg rectally as needed for hemorrhoids 0 Active diclofenac (VOLTAREN) 1 % GEL Place onto the skin as needed for moderate pain 0 Active triamcinolone (KENALOG) 0.5 % cream Apply topically as needed for irritation 0 Active silver sulfADIAZINE (SILVADENE) 1 % external creamIndications:Foot pain, bilateral,Ingrown nail of great toe of left foot,Ingrown nail of second toe of left foot,Pes planus of both feet,Plantar fasciitis, bilateral,Achilles tendonitis, bilateral Apply topically 2 times daily Apply to left toes 2x a day. 25 g 1 04/08/2018 Active metFORMIN (GLUCOPHAGE) 500 MG tablet Take 500 mg by mouth 0 01/22/2017 Active venlafaxine (EFFEXOR-XR) 150 MG 24 hr capsule TAKE 1 CAPSULE BY MOUTH DAILY FOR A TOTAL DOSE OF 225 0 08/25/2020 Active valACYclovir (VALTREX) 500 MG tablet Twice A Day 0 05/11/2020 Active traZODone (DESYREL) 100 MG tablet Bedtime 0 09/29/2014 Active pramipexole (MIRAPEX) 0.125 MG tablet Daily as needed 0 05/11/2020 Acti ve loratadine (CLARITIN) 10 MG tablet Take 1 tablet by mouth daily 0 08/24/2020 Active FLOVENT HFA 110 MCG/ACT inhaler INHALE 1 PUFF BY MOUTH TWICE DAILY 0 09/30/2020 Active Active Problems Problem Noted Date Diagnosed Date Obesity GERD (gastroesophageal reflux disease) IBS (irritable bowel syndrome) CARLOS (obstructive sleep apnea) Overview: CPAP Depression Fibromyalgia Hypertension Chronic pain syndrome Diabetes mellitus, type II Restless leg syndrome Chronic insomnia Diastolic dysfunction Bilateral pulmonary embolism Overview: 2009 Social History Tobacco Use Types Packs/Day Years Used Date Smoking Tobacco: Former Smokeless Tobacco: Never Tobacco Cessation:Counseling Given: Yes Comments:quit 1986 Alcohol Use Standard Drinks/Week Comments Not Asked 0 (1 standard drink = 0.6 oz pur e alcohol) PHQ-2 Answer Date Recorded PHQ-2 Score 1 11/02/2020 Adolescent Education Answer Date Record ed Getting School Help Needed Not on file 12/30 Sex and Gender Information Value Date Recorded Sex Assigned at Female 10/30/2020 4:00 PM CDT Gender Identity Female 10/30/2020 4:00 PM CDT Sexual Orientation Bisexual 10/30/2020 4: 00 PM CDT Last Filed Vital Signs Vital [...] 11/02/2020 2:35 PM CDT Plan of Treatment Not on file Care Teams Hide Mill Worker Relationship Specialty Start Date End Date Denise Harris MD [address] [address] PCP - General Internal Medicine 01/17/15 Anoop Emery MD [address] [address] Referring Physician Family Medicine 09/15/20 Inez Peck MD [address] [place] [id number] Urology 09/15/20
--- OUTSIDE RECORDS SUMMARY | 2023-04-22 12:36 | XMS_ITS | Clinical Summary ---
Author Name Unknown Organization [facility] Address [address] [place] [address] Care Team Providers Care Prison Psychiatrist Name Role Phone Denise Harris MD Primary Care Provider Anoop Emery MD Unavailable [phone] Inez Peck MD Unavailable [phone] Allergies Active Allergy Reactions Criticality Noted Date [...] by mouth 3 times daily 0 Active [place]-3 Fatty Acids (OMEGA 3 PO) Take by [...] DIABETIC FOOT EXAM 1955 EYE EXAM 1955 FIT 1955 FLEX SIG 1955 LIPID 1955 MAMMO SCREENING 1955 MICROALBUMIN 1953 sDNA (Cologuard) 1955 COLONOSCOPY 05/17/1963 COLORECTAL CANCER SCREENING 05/17/1963 HEPATITIS C SCREENING 05/17/1971 LUNG CANCER SCREENING 05/17/2003 RSV VACCINE ( & 60+) (1 - 1-dose 60+ series) 2013 ZOSTER IMMUNIZATION (2 of 3) 07/08/2014 05/13/2014 FALL RISK ASSESSMENT 2018 MEDICARE ANNUAL WELLNESS VISIT 2018 Pneumococcal Vaccine: 65+ Years (2 of 2 - PPSV23 or PCV20) 11/17/2019 09/22/2019 PHQ-9 11/02/2021 11/02/2020 COVID-19 Vaccine (2 - 2022- season) 2022 05/19/2020 INFLUENZA VACCINE (#1) 2022 9, 01/07/2019, 12/30/2017, Additional history exists BMP 01/03/2023 01/03/2022 DTAP/TDAP/TD IMMUNIZATION (5 - Td or Tdap) 06/21/2024 06/21/2014, 06/21/2014, 07/23/2006, Additional history exists HPV IMMUNIZATION Aged Out No longer e ligible based on patient's age to complete this topic IPV IMMUNIZATION Aged Out No longer e ligible based on patient's age to complete this topic MENINGITIS IMMUNIZATION Aged Out No l onger eligible based on patient's age to complete this topic RSV MONOCLONAL ANTIBODY Aged Out No l onger eligible based on patient's age to complete this topic Care Teams Prison Psychiatrist Relationship Specialty Start Date End Date Denise Harris MD [facility] [address] [place] [address] PCP - General Internal Medicine 01/17/15 Anoop Emery MD [facility] [address] [place] [address] Referring Physician Family Medicine 09/15/20 Inez Peck MD [address] [place] [address] [address] [place] [address] Urology 09/15/20
--- OUTSIDE RECORDS SUMMARY | 2023-04-22 12:36 | XMS_ITS | Clinical Summary ---
Author Name Unknown Organization [facility] Address [address] [place] [address] Care Team Providers Care Surgical Coordinator Name Role Phone Thalia Barron PA-C Primary Care Provider Un available Source Comments You are receiving this document as you are listed as the primary care provider,follow-up provider, or the patient has been referred to you for consultation.This is in compliance with the Medicare and[facility] E[facility] Incentive [facility],which states Providers who transition their patient to another setting of careor provider of care or refers their patient to another provider of care shouldprovide summary care record for each transition of care or referral. Subitec Allergies Active Allergy Reactions Criticality Noted Date Comments Other 04/29/2009 PN: LW Other1: -NKA LW Other2: -NKA Review Contrast Media 04/29/2009 PN: LW CM1: >>> NO CONTRAST ADVERSE REACTION <<< Reaction : Review Food Intolerance 04/29/2009 PN: LW FI1: NKA LW FI2: NKA Medications Medication Sig Dispensed Refills Start Date End Date Status ATENOLOL 50 MG OR TABS Take one tablet by mouth every day. 0 07/06/2007 Active REMERON 15 MG OR TABS Take one tablet by mouth daily 0 07/06/2007 Active ACYCLOVIR 200 MG OR CAPS as needed 0 07/06/2007 Active TRAZODONE HCL 50 MG OR TABS Take one tablet by mouth at bedtime. 0 07/06/2007 Active VITEX EXTRACT 175 MG OR CAPS Take one capsule by mouth twice daily 0 07/06/2007 Active COENZYME Q10 100 MG OR TABS Take one tablet by mouth daily 0 07/06/2007 Active L-LYSINE HCL 500 MG OR TABS Take 2 tablets by mouth every morning 0 07/06/2007 Active FISH OIL 1200 MG OR CAPS Take by mouth twice daily 0 07/06/2007 Active DOCUSATE SODIUM 100 MG OR CAPS Take 1 tablet by mouth 4 times daily 0 07/06/2007 Active CITRACAL + D 315-200 MG-UNIT OR TABS Take 2 tablets by mouth daily 0 07/06/2007 Active GLUCOSAMINE CHONDROITIN COMPLX OR TABS Take 2 tablets by mouth daily 0 07/06/2007 Active MULTIPLE VITAMIN TABS Take one tablet by mouth twice daily. 0 07/06/2007 Active FOLIC ACID 400 MCG OR TABS Take one tablet by mouth 0 07/06/2007 Active GNP SENNA 8.6 MG OR CAPS Take 2-4 tablets by mouth daily as needed at bedtime 0 07/06/2007 Active ECHINACEA 400 MG OR CAPS Take one tablet by mouth twice daily 0 07/06/2007 Active TYLENOL ARTHRITIS PAIN 650 MG OR TBCR Take 2 tablets by mouth as needed 0 07/06/2007 Active IBUPROFEN 200MG ORAL TABS Take 1-2 tablets by mouth every 4-6 hours as needed for pain. 0 07/06/2007 Active INDOMETHACIN 50 MG OR CAPS Take one capsule by mouth three times a day 0 09/29/2007 Active CYMBALTA 30MG ORAL CAPS Take 4 capsules by mouth daily 0 09/29/2007 Active hydrochlorothiazide (AKA HYDRODIURIL) 25 MG tablet Take 1 tablet by mouth daily (every 24 hours). LW Addl Instr:Indicated for: High Blood Pressure 90 3 03/27/2009 Active LYSINE OR Take 1 tablet by mouth 2 times daily. LW Addl Instr:pt takes in morning and at noon 0 04/26/2009 Active Psyllium (METAMUCIL) 48.57 % powder Take 1 tsp by mouth daily (every 24 hours). LW Addl Instr:Dissolve in full glass of water or juice. 0 04/26/2009 Active loratadine (AKA CLARITIN) 10 MG tablet Take 1 tablet by mouth daily as needed. LW Addl Instr:pt only takes in summer Indicated for: Allergies 90 3 04/26/2009 Active gabapentin (AKA NEURONTIN) 300 MG capsule Take 1 capsule by mouth 4 times daily. LW Comment:info per pt LW Addl Instr:2 in am, 1 at noon, 1 in evening, and 1 at bedtime for total of 5 a day 3 04/26/2009 Active Multiple Vitamins-Minerals (MULTIVITAMIN OR) Take 1 tablet by mouth daily (every 24 hours). 100 13 04/26/2009 Active LevOCARNitine (L-CARNITINE) 250 MG Take 1 tablet by mouth 2 times daily. 0 04/26/2009 Active betamethasone dipropionate (AKA DIPROSONE) 0.05 % cream Apply 1 Application topically NEEDED PRN. LW Addl Instr:for eczema on hand 15 0 04/26/2009 Active [place]-3 Fatty Acids ([facility]S FISH OIL) 1200 MG CAPS Take 1 capsule by mouth 2 times daily. 0 04/26/2009 Active calcium citrate-vitamin D (CITRACAL MAXIMUM) 315-250 MG-UNIT tablet Take 1 capsule by mouth 2 times daily. LW Addl Instr:pt takes 1 in the evening and 1 at bedtime 0 04/26/2009 Active amitriptyline (AKA ELAVIL) 10 MG tablet Take 1.5 tablets by mouth nightly. LW Addl Instr:pt takes 50mg in the evening and 15mg at bedtime 90 3 04/26/2009 Active amitriptyline (AKA ELAVIL) 50 MG tablet Take 1 tablet by mouth every evening. LW Addl Instr:pt takes 50mg in the evening and 15mg before bedtime 90 3 04/26/2009 Active valACYclovir (AKA VALTREX) 1 G tablet Take 1 tablet by mouth 2 times daily as needed. LW Addl Instr:if pt has cold sore, pt takes 1 in am and 1 in pm for total treatment 0 04/26/2009 Active senna (SENNA) 8.6 MG tablet Take 2 tablets by mouth at bedtime as needed. LW Addl Instr:INDICATED FOR CONSTIPATION. 0 04/26/2009 Active Coenzyme Q10 (CO Q 10) 100 MG Take 1 capsule by mouth daily (every 24 hours). 0 04/26/2009 Active [facility]S ECHINACEA 400 MG CAPS Take 1 capsule by mouth daily (every 24 hours). 0 04/26/2009 Active DESOWEN LOTION/NIZORAL CREAM 1 TO 1 Apply topically 2 times daily. LW Addl Instr:Desowen cream and Nizoral cream mixed 50/50. Apply as directed to affected area twice daily as needed. 0 04/27/2009 Active Acetaminophen 650 MG Take 1-2 tablets by mouth every 8 hours as needed. LW Addl Instr:Maximum of 6 tablets/24 hours. 50 12 04/26/2009 Active nystatin-triamcinolo ne (AKA MYCOLOG-II) 736041-5.1 UNIT/GM-% cream Apply 1 Applicatorful topically 3 times daily. LW Addl Instr:pt applies to left corner of eye and left corner of mouth 15 3 04/26/2009 Active Carboxymethylcellulo se Sodium 1 % eye gel Apply 1 drop to eye 2 times daily as needed. 15 0 04/26/2009 Active UNKNOWN MEDICATION Indications: PN: 0 01/24/2010 Active DULoxetine (AKA CYMBALTA) 60 MG capsule Take 1 capsule by mouth 2 times daily. LW Addl Instr:Indication: Fibromyalgia. pt takes 1 in the am and 1 at noon 3 04/26/2009 Active Active Problems Problem Noted Date Diagnosed Date Mechanical low back pain 10/15/2018 Cervical [...] drink = 0.6 oz pur e alcohol) Recovering alcoholic Sex and Gender Information Value Date Recorded Sex Assigned at Not on file Gender Identity Not on file Sexual Orientation Not on file Last Filed Vital Signs Vital Sign Reading Time Taken Comments Blood Pressure 118/80 05/01/2009 7:20 AM MINIATURE SET CONSTRUCTOR C: Dynamap Pulse 102 05/01/2009 7:20 AM MINIATURE SET CONSTRUCTOR Temperature 36.7 ??C (98.1 ??F) 05/01/2009 7 :20 AM MINIATURE SET CONSTRUCTOR ORAL C: 98.1 F Respiratory Rate 16 05/01/2009 7:20 AM MINIATURE SET CONSTRUCTOR Oxygen Saturation 96% 05/01/2009 7:2 1 AM MINIATURE SET CONSTRUCTOR Inhaled Oxygen Concentration - - Weight - - Height - - Body Mass Index - - Plan of Treatment Health Maintenance Due Date Last Done Comments Colon Cancer Screening Plan Due 1955 Hep C Screening (Preventive Services) 1955 Medicare Annual Wellness Visit 1955 Mammogram 1955 Cholesterol 1998 Zoster/Shingles (2 of 3) 07/08/2014 05/13/2014 Dexa 2018 Pneumococcal 65+ Yrs (2 - PPSV23 or PCV20) 09/21/2020 09/22/2019 COVID-19 Vaccine (2 - 2022- season) 2022 05/19/2020 Influenza (#1) 2022 01/07/2019, 12/15, 12/30/2017, Additional history exists DTaP/Tdap/Td (2 - Tdap) 06/21/2024 06/22/19 15, 07/23/2006, 07/23/2006 HepA Aged Out 07/23/2006, 07/23/2006 No lo nger eligible based on patient's age to complete this topic HepB Aged Out No longer eligi ble based on patient's age to complete this topic Hib Aged Out No longer eligi ble based on patient's age to complete this topic IPV (Polio) Aged Out No longer eligi ble based on patient's age to complete this topic MCV4 Aged Out No longer eligi ble based on patient's age to complete this topic Care Teams Surgical Coordinator Relationship Specialty Start Date End Date Thalia Barron PA-C PCP - General Physician Brood Station Manager 10/06/18
--- OUTSIDE RECORDS SUMMARY | 2023-04-22 12:37 | XMS_ITS | Encounter Summary ---
Author Name Unknown Organization [facility] Address [address] [place] [address] Care Team Providers Care Account Development Manager Name Role Phone Elsewhere, Pcp Primary Care Provider Unavailabl e Encounter Details Date Type Department Care Team (Latest Contact Info) Description 09/10/2022 [facility] [address] [place] [phone] Anoop Emery M.D. 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 No 07/18/2022 Within the last year, have y ou been humiliated or emotionally abused in other ways by your partner or ex-partner? No Within the last year, have y ou been kicked, hit, slapped, or otherwise physically hurt by your partner or ex-partner? No 07/18/2022 Within the last year, have y ou been raped or forced to have any kind of sexual activity by your partner or ex-partner? No 07/18/2022 Social Connection and Isolat ion Panel [NHANES] Answer Date Recorded In a typical week, how many times do you talk on the phone with family, friends, or neighbors? More than three times a week 07/18/2022 How often do you get togethe r with friends or relatives? Never 07/18/2022 How often do you attend chur ch or presybeterian services? Never 07/18/2022 Do you belong to any clubs o r organizations such as yazidism groups, unions, fraternal or athletic groups, or school groups? Yes 07/18/2022 How often do you attend meet ings of the clubs or organizations you belong to? More than 4 times per year 07/18/2022 Are you , , di vorced, , never , or living with a partner? 07/18/2022 AUDIT-C Answer Date Recorded Q1: How often do you have a drink containing alc ohol? Never 07/18/2022 Average Number of Drinks Not on file 023 Frequency of Binge Drinking Not on file 06/2022 Overall Financial Resource Strain (CARDIA) Answe r Date Recorded How hard is it for you to pa y for the very basics like food, housing, medical care, and heating? Not hard at all 07/18/2022 [facility] - Occupational Stress Questionnaire Answer Date Recorded Do you feel stress - tense, restless, nervous, or anxious, or unable to sleep at night because your mind is troubled all the time - these days? To some extent 07/18/2022 Exercise Vital Sign Answer Date Recorde d On average, how many days pe r week do you engage in moderate to strenuous exercise (like a brisk walk)? 2 days 07/18/2022 On average, how many minutes do you engage in exercise at this level? 10 min 07/18/2022 Hunger Vital Sign Answer Date Recorded Within the past 12 months, y ou worried that your food would run out before you got the money to buy more. Never true 07/19/19 23 Within the past 12 months, t he food you bought just didn't last and you didn't have money to get more. Never true 07/18/2022 PRAPARE - Transportation Answer Date Re corded In the past 12 months, has l ack of transportation kept you from medical appointments or from getting medications? Yes 06/2022 In the past 12 months, has l ack of transportation kept you from meetings, work, or from getting things needed for daily living? Yes 07/18/2022 Housing Stability Vital Sign Answer Bishop e Recorded In the last 12 months, was t here a time when you were not able to pay the mortgage or rent on time? No 07/18/2022 In the last 12 months, how many places have you lived? 1 07/18/2022 In the last 12 months, was t here a time when you did not have a steady place to sleep or slept in a senior living (including now)? No 07/18/2022 Nutrition Answer Date Recorded Nutrition: EVOO Fat Source Yes 07/18 On average, how many serving s of fruits and vegetables do you eat per day (serving size is equal to 1 cup or approximately the size of a tennis ball)? 2-3 07/18/2022 Dental Answer Date Recorded Dental: Regular Dentist Yes 12/13/19 Employment Answer Date Recorded Employment status Permanently disabled Education Answer Date Recorded What is the highest level of school you have completed or the highest degree you have received? 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, [employer]) 07/15/2020 Sex and Gender Information Value Date Recorded Sex Assigned at Female 07/21/2017 2:58 PM CDT Gender Identity Female 07/21/2017 2:58 PM CDT Sexual Orientation Bisexual 07/21/2017 2: 58 PM CDT documented as of this encounter Plan of Treatment Not on file documented as of this encounter Visit Diagnoses Diagnosis Stenosis Spinal Cervical- Primary Spinal Stenosis Lumbar Region Without Neurogenic Claudication documented in this encounter Additional Health Concerns Assessment Noted Time PHQ-9 Depression Total Score: 5 04/29/19 17 10:10 AM SHOP CLERK documented as of this encounter Care Teams Account Development Manager Relationship Specialty Start Date End Date Elsewhere, Pcp PCP - General Internal Medicine 07/16/22 documented as of this encounter
--- OUTSIDE RECORDS SUMMARY | 2023-04-22 12:37 | XMS_ITS ---
Author Name Unknown Organization [facility] Address [address] [place] [address] Care Team Providers Care Litharge Supervisor Name Role Phone Unavailable Unavailable Unavailable Surgery Details Not on file Complications Check Surgery Details section. Procedure Estimated Blood Loss Check Surgery Details section. Procedure Findings Check Surgery Details section. Procedure Specimens Taken Check Surgery Details section.
--- OUTSIDE RECORDS SUMMARY | 2023-04-22 12:37 | XMS_ITS | Encounter Summary ---
Author Name Unknown Organization [facility] Address [address] [place] [address] Care Team Providers Care Genetic Coordinator Name Role Phone Elsewhere, Pcp Primary Care Provider Unavailabl e Reason for Referral * Outpatient (Routine) - Closed Specialty Diagnoses / Procedures Referred By Contact Referred To Contact Gastroenterology and Hepatology Diagnoses Constipation Rectocele Other Specified Disorders Of Muscle Anoop Emery M.D. [address] [place] [phone] [facility] Referral ID Status Reason Start Date Expiration Date Visits Re quested Visits Authorized [id number] Closed 09/02/2017 09/02/2018 1 1 Encounter Details Date Type Department Care Team (Late st Contact Info) Description 09/01/2017 [facility] [address] [place] [address] Anoop Emery M.D. [address] [place] [phone] Other Specified Disorders Of Muscle (Primary Dx); Constipation; Rectocele Social History Tobacco Use Types Packs/Day Years Used Date Smoking Tobacco: Former Smokeless Tobacco: Never Sex and Gender Information Value Date Recorded Sex Assigned at Female 07/21/2017 2:58 PM CDT Gender Identity Female 07/21/2017 2:58 PM CDT Sexual Orientation Bisexual 07/21/2017 2: 58 PM CDT documented as of this encounter Plan of Treatment Scheduled Referrals Name Type Priority Associated Diagnoses Order Schedule Gastroenterology & Hepatology Referral Outpatient Referral Routine Constipation Rectocele Other Specified Disorders Of Muscle Expected: 09/02/2017 (Approximate), Expires: 09/02/2020 documented as of this encounter Visit Diagnoses Diagnosis Other Specified Disorders Of Muscle- Primary Constipation Rectocele documented in this encounter Additional Health Concerns Assessment Noted Time PHQ-9 Depression Total Score: 5 04/29/19 17 10:10 AM BREAD BAKER documented as of this encounter Care Teams Genetic Coordinator Relationship Specialty Start Date End Date Elsewhere, Pcp PCP - General Internal Medicine 07/16/22 documented as of this encounter
--- OUTSIDE RECORDS SUMMARY | 2023-04-22 12:37 | XMS_ITS | Clinical Summary ---
Author Name Unknown Organization [facility] Address [address] [place] [address] Care Team Providers Care Ore Feeder Name Role Phone Elsewhere, Pcp Primary Care Provider Unavailabl e Source Comments Patient records contain information from all sites at [facility]. For routine questions regarding patient records, call [phone] during business hours, M-F 8:00 AM - 5:00 PM Central Time. Record requests for emergency care only can be directed to [phone] at any time.[facility] Allergies Active Allergy Reactions Criticality Noted Date Comments Mupirocin Other (see comments) 09/10/2018 Medications Medication Sig Dispensed Refills Start Date End Date Status multivitamin tablet Take 1 tablet by mouth daily. 0 04/25/2011 Active FSH/FLX/PRIM/CUR/B OR/OM3,6,9 5 (OMEGA 3-6-9 FATTY ACIDS ORAL) Take 1 capsule by mouth daily. 0 05/01/2016 Active venlafaxine XR (EFFEXOR XR) 150 mg 24 hr capsule Take 1 capsule by mouth daily. With 75 mg capsule = 225 mg total dose 0 03/19/2016 Active VOLTAREN 1 % gel Apply 4 g topically 4 (four) times a day as needed. 0 12/05/2016 Active hydroCHLOROthiazid e (for_HYDRODIURIL) 25 mg tablet Take 25 mg by mouth daily. 0 12/09/2016 Active metFORMIN (for_GLUCOPHAGE) 500 mg tablet Take 1,000 mg by mouth 2 (two) times a day with meals. 0 01/22/2017 Active nystatin (for_MYCOSTATIN) 100,000 unit/gram cream Apply 1 application topically 2 (two) times a day as needed. 0 10/30/2016 Active pregabalin (LYRICA) 150 mg capsule Take 1 capsule (150 mg total) by mouth 2 (two) times a day. 60 capsule 5 03/31/2017 Active Additional Information Patient taking differently: 100-150 mgoral3 times daily, 150 MG IN AM, 100 MG IN AFTERNOON, AND 150 MG IN PM., Reported on 12/24/2021 IRON,CARBONYL/ASCO RBIC ACID (VITRON-C ORAL) Take 1 tablet by mouth 2 (two) times a day. 0 07/20/2015 Active traZODone (DESYREL) 100 mg tablet Take 100 mg by mouth daily. Taking 2 tablets at bedtime 0 02/17/2020 Active ginkgo biloba 40 mg tablet Take 120 mg by mouth daily. 0 Active turmeric root extract 500 mg capsule Take by mouth daily. 0 Active cranberry 400 mg capsule Take 400 mg by mouth daily. 0 10/01/2018 Active co-enzyme Q-10 (CO Q-10) 100 mg capsule Take 1 capsule by mouth daily. 0 04/26/2009 Active venlafaxine XR (EFFEXOR-XR) 75 mg 24 hr capsule Take 75 mg by mouth daily. Take with 150 mg = 225 mg total daily. 0 05/25/2020 Active valACYclovir (VALTREX) 500 mg tablet 0 06/22/2020 Active alpha lipoic acid 600 mg capsule Take 600 mg by mouth at bedtime. 0 Active fluticasone propionate (FLOVENT HFA) 110 mcg/actuation inhaler Inhale 1 puff 2 (two) times a day. 0 09/30/2020 Active Xarelto 10 mg tablet Take 10 mg by mouth daily. 0 10/22/2021 Active oxyCODONE (ROXICODONE) 5 mg immediate release tabletIndications: Acute Pain Take 1 tablet (5 mg total) by mouth every 4 (four) hours as needed for moderate pain or score 4-6 of 10 (if other analgesics fail) Indication: Acute Pain. 18 tablet 0 12/27/2021 Active lancets 4 each daily. 365 each 0 12/28/2021 Active alcohol swabs pads, medicated Use as needed for diabetes control 200 each 0 12/28/2021 Active blood glucose ctl high,nml,low solution Glucose control solution provides an easy way to ensure accurate blood glucose testing. 1 each 0 12/28/2021 Active pen needle, diabetic (BD Ultra-Fine Mini Pen Needle) 31 gauge x 3/16 needle 4 each (4 Injection total) daily. 365 each 0 12/28/2021 Active blood sugar diagnostic strips 4 test daily. 365 test 0 12/28/2021 Active blood-glucose meter misc Test as directed for diabetes control. 1 each 0 12/28/2021 Active insulin glargine (Lantus Solostar U-100 Insulin) 100 unit/mL (3 mL) injection Inject 22 Units under the skin every morning. 15 mL 0 12/29/2021 Active pregabalin (LYRICA) 100 mg capsule Take 100 mg by mouth daily. 0 04/30/2022 Active prednisoLONE acetate (PRED FORTE) 1 % ophthalmic suspension as needed. 0 06/13/2022 Active loratadine (CLARITIN) 10 mg tablet Take 10 mg by mouth daily. 0 04/18/2022 Active Victoza 2-Howie 0.6 mg/0.1 mL (18 mg/3 mL) injection daily. 0 07/02/2022 Active Active Problems Problem Noted Date Diagnosed Date Scoliosis 12/21/2021 Body Mass Index 40.0 To 44.9 Adult 12/21/2021 Obstructive Sleep Apnea Adult 12/21/2021 Smoking Tobacco Use Personal History 12/21/2021 Embolus Pulmonary Personal History 12/18/2021 Anticoagulant Therapy 12/18/2021 Myelopathy Cervical 11/14/2021 Overview: Added automatically from request for surgery [id number] Pain Neuropathic 04/11/2020 Constipation 09/23/2017 Prolapse Vaginal 09/23/2017 Arthroplasty Total Knee Replacement Status Post Bilateral 09/23/2017 Fasciitis Plantar 09/23/2017 Bursitis 09/23/2017 Osteoarthritis 09/23/2017 Hypertension Essential Primary 09/23/2017 Restless Leg Syndrome 09/23/2017 Nodule Thyroid 09/23/2017 Eczema 09/23/2017 Tendonitis Achilles Right 07/29/2017 Diabetes Mellitus Type 2 04/15/2017 Diabetes Mellitus Type 2 With Diabetic Neuropath y 04/15/2017 Pain Low Back Unspecified 01/28/2017 Spondylosis Lumbar Without Myelopathy 01/28/2017 Depression Major Recurrent Partial Remission 01/2015 Immunizations Name Administration Dates Next Due H1N1 All Forms 02/13/2009,02/06/2009 HZV (ZOSTAVAX) 05/13/2014 HepA Adult 07/23/2006 Influenza (IM) Preservative Free 014,02/15/2013,12/21/2011,2010,01/01/2010,11/30/2008 Influenza Split 12/17/2010 Influenza TIV (IM) 12/30/2006 Influenza, Seasonal, Injectable 12/30/2006 Influenza, Unspecified 01/14/2009,11/30/2008, PPSV23(Discontinued) 07/02/2021 SARS-COV-2 (COVID-19) - CUBA LUNDBERG (J&J)(Discontinued) 05/19/2020 Td Preservative Free (TENIVA C, DECAVAC) 07/23/2006 Td, (Adult) Unspecified 07/23/2006 Tdap 06/21/2014 influenza vaccine quad (FLUZONE/FLUARIX) (6 months and older)(PF) 12/12/2016,01/11/2016,01/10/2015 Family History Medical History Relation Name Comments Alcohol abuse Brother True Depression Brother True Prostate cancer Brother True Coronary artery disease Father Sunil overton Diabetes Father Sunil Pace Hypertension Father Sunil Pace Obesity Father Sunil Pace Prostate cancer Father Sunil Pace Breast cancer Mother Swathi pace Diabetes Mother Swathi pace Hypertension Mother Swathi pace Obesity Mother Swathi pace Ovarian cancer Paternal Grandmother Sintia Pace Relation Name Status Comments Brother True Father Sunil Pace Mother Swathi pace Paternal Grandmother Sintia Pace Social History Tobacco Use Types Packs/Day Years Used Date Smoking Tobacco: Former Cigarettes 1 15 1 03/27/1971 - 01/25/1986 Pipe Smokeless Tobacco: Never Tobacco Cessation:Counseling Given: Not Answered Alcohol Use Standard Drinks/Week [...] 07/18/2022 How often do you attend chur or methodist services? Never 07/18/2022 Do you belong to any clubs o r organizations such as rastafarian groups, unions, fraternal [...] and heating? Not hard at all 07/18/2022 [facility] of Occupat ional Health - Occupational Stress [...] or slept in a mcc (including now)? No 07/18/2022 Nutrition Answer Date [...] 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, REMOTE INPATIENT CODER, ODILIA) 07/15/2020 Sex and Gender Information Value Date Recorded Sex Assigned at Female 07/21/2017 2:58 PM CDT Gender Identity Female 07/21/2017 2:58 PM CDT Sexual Orientation Bisexual 07/21/2017 2: 58 PM CDT Last Filed Vital Signs Vital Sign Reading Time Taken Comments Blood Pressure 151/66 12/28/2021 2:35 PM CDT Pulse 70 12/28/2021 2:35 PM CDT Temperature 36.7 ??C (98.1 ??F) 12/28/2021 2:35 PM CD T Respiratory Rate 16 12/28/2021 2:35 PM CDT [...] Monitoring (PHQ-9) 1955 Diabetic Office Visit with F oot Exam 1955 Dilated Eye Exam 1953 FIT 1955 Hepatitis C Screening 1955 Urine Albumin 1955 Hepatitis A Vaccines (2 of 2 - Risk 2-dose series) 01/23/2007 07/23/2006 Hepatitis B Vaccines (1 of 3 - Risk 3-dose series) 2013 Colonoscopy 07/04/2013 07/05/2003 Colorectal Cancer Screening 07/04/2013 Zoster Vaccines (2 of 3) 07/08/2014 05/13/2014 Mammogram 02/17/2018 02/17/2017 (Perf ormed elsewhere), 07/16/2011 (Performed elsewhere) Lipid (Cholesterol) Screening 12/09/2019, 02/14/2017 (Performed elsewhere), 07/16/2011 (Performed elsewhere) Hemoglobin A1C 03/20/2022 12/18/2021 Office Visit for Blood Press ure Check / Re-check 12/21/2022 12/21/2021 Creatinine Level (Kidney Fun ction Test) 01/03/2023 01/03/2022, 12/24/2021, 12/18/2021, Additional history exists Potassium Level 01/03/2023 01/03/2022, 12/15, 12/18/2021, Additional history exists Sodium Level 01/03/2023 01/03/2022, 12/15, 12/24/2021, Additional history exists Fall Risk Screen (Annual) 03/17/2023 DTaP,Tdap,and Td Vaccines (2 - Td or Tdap) 06/21/2024 06/21/2014, 07/23/2006, 07/23/2006 Cervical Cancer Screening Discontinued 2016 (Performed elsewhere), 07/16/2011 (Performed elsewhere) Pneumococcal vaccine (65+ years) Completed 07/03/19, 09/22/2019 Bone Density Scan (Osteoporo sis Screen) Discontinued 12/18/2021 COVID-19 Vaccine Completed 12/26/2022, , 02/07/2021, Additional history exists Influenza Vaccine Completed 12/26/2022, , 01/03/2021, Additional history exists Medical Devices Implanted Type Area Clinical Ob Device Identifier Shelf Expiration Date Model / Serial / Lot Miniplate Double Bend 10mm Spacing Implanted:Qty: 3 on 12/24/2021 by Buster Herrera M.D. at [facility] Hardware e.g. pins/screws /rods N/A: Posterior Cervical Depuy Synthes [id number] / / Sigma Post Stab.W Lug Fem Sz 5 Rt - Gallo [id number] Implanted:Qty: 1 on 12/18/2011 Knee Implant Other/Legacy - See Implant Description [employer] Description:Device Manufactu rer - [employer]. Body Location - Other. Right. Device Status Text - [id number] [id number]. Cement Bone Large - Gallo [id number] Implanted:Qty: 1 on 12/18/2011 Misc Other Shanna Description:Device Manufactu rer - Shanna Mariama.. Device Status Text - [id number]. Advance Directives For more information, please contact: [phone] Documents on File Type Date Recorded Patient Stave Cutting Supervisor Expl anation Advance Directives 12/17/2011 12:00 AM Leg acy document. See document viewer. Latest Code Status on File Code Status Date Activated Date Inactivated Comments Full Code 12/24/2021 6:31 PM 12/28/2021 5:21 PM Question Answer Comments Full Code: Discussed Care Teams Ore Feeder Relationship Specialty Start Date End Date Elsewhere, Pcp PCP - General Internal Medicine 07/16/22
--- OUTSIDE RECORDS SUMMARY | 2023-04-22 12:37 | XMS_ITS | Encounter Summary ---
Author Name Unknown Organization [facility] Address [address] [place] [address] Care Team Providers Care Mortgage Loan Reviewer Name Role Phone Elsewhere, Pcp Primary Care Provider Unavailabl e Encounter Details Date Type Department Care Team (Late st Contact Info) Description 08/04/2018 [facility] [address] [place] [address] Anoop Emery M.D. [address] [place] [id number] Other Dyspnea (Primary Dx) Social History Tobacco Use Types Packs/Day Years Used Date Smoking Tobacco: Former Smokeless Tobacco: Never Alcohol Use Standard Drinks/Week Comments No 0 (1 standard drink = 0.6 oz pur e alcohol) Sex and Gender Information Value Date Recorded Sex Assigned at Female 07/21/2017 2:58 PM CDT Gender Identity Female 07/21/2017 2:58 PM CDT Sexual Orientation Bisexual 07/21/2017 2: 58 PM CDT documented as of this encounter Plan of Treatment Not on file documented as of this encounter Visit Diagnoses Diagnosis Other Dyspnea- Primary documented in this encounter Additional Health Concerns Assessment Noted Time PHQ-9 Depression Total Score: 5 04/29/19 17 10:10 AM CORSET MAKER documented as of this encounter Care Teams Mortgage Loan Reviewer Relationship Specialty Start Date End Date Elsewhere, Pcp PCP - General Internal Medicine 07/16/22 documented as of this encounter
--- OUTSIDE RECORDS SUMMARY | 2023-04-22 12:37 | XMS_ITS | Encounter Summary ---
Author Name Unknown Organization [facility] Address [address] [place] [id number] Care Team Providers Care Dental Prosthetist Name Role Phone Denise Harris MD Primary Care Provider Anoop Emery MD Unavailable [phone] Peck See Luis Antonio GARZA Unavailable [phone] Inez Peck See Luis Antonio GARZA Unavailable [phone] Encounter Details Date Type Department Care Team (Late st Contact Info) Description 04/09/2018 [facility] [place] [id number] Jeanine Ford DPJose Roberto, Podiatry/Foot and Ankle Surgery [address] [address] Foot pain, bilateral (Primary Dx) Social History Tobacco Use Types [...] Orientation Bisexual 10/30/2020 4: 00 PM CDT documented as of this encounter Miscellaneous Notes * Telephone Encounter - Ni Taveras RN - 04/09/2018 2:27 PM CST Please see mychart request for ibuprofen and medical records. It looks like a consult letter was already in the process of being sent. Geri Taveras, RN IGERATOR GLAZIER documented in this encounter Plan of Treatment Not on file documented as of this encounter Visit Diagnoses Diagnosis Foot pain, bilateral- Primary documented in this encounter Care Teams Dental Prosthetist Relationship Specialty Start Date End Date Denise Harris MD [address] [address] PCP - General Internal Medicine 01/17/15 Anoop Emery MD [address] [address] Referring Physician Family Medicine 09/15/20 Inez Peck MD [address] [place] [address] Urology 09/15/20 Inez Peck MD [address] [place] [id number] Assigned Surgical Provider 11/12/20 05/10/22 documented as of this encounter
--- OUTSIDE RECORDS SUMMARY | 2023-04-22 12:37 | XMS_ITS | Encounter Summary ---
Author Name Unknown Organization [facility] Address [address] [place] [address] Care Team Providers Care Bar Porter Name Role Phone Elsewhere, Pcp Primary Care Provider Unavailabl e Reason for Visit * Reason Onset Date Comments Pre-visit Intake 07/16/2022 Encounter Details Date Type Department Care Team (Latest Contact Info) Description 07/16/2022 11:45 AM CDT Clinical Communication Virtual Review in [place], [place] [address] [place], [place] [id number] Pre-visit Intake Social History Tobacco Use Types Packs/Day Years [...] afraid of your partner or ex-partner? No 12/12/2021 Within the last year, have y ou been humiliated or emotionally abused in other ways by your partner or ex-partner? No Within the last year, have y ou been kicked, hit, slapped, or otherwise physically hurt by your partner or ex-partner? No 12/12/2021 Within the last year, have y ou been raped or forced to have any kind of sexual activity by your partner or ex-partner? No 12/12/2021 Social Connection and Isolat ion Panel [NHANES] Answer Date Recorded In a typical week, how many times do you talk on the phone with family, friends, or neighbors? More than three times a week 12/12/2021 How often do you get togethe r with friends or relatives? More than three times a week 12/12/2021 How often do you attend chur ch or caodaism services? Never 12/12/2021 Do you belong to any clubs o r organizations such as caodaism groups, unions, fraternal or athletic groups, or school groups? Yes 12/12/2021 How often do you attend meet ings of the clubs or organizations you belong to? More than 4 times per year 12/12/2021 Are you , , di vorced, , never , or living with a partner? 12/12/2021 AUDIT-C Answer Date Recorded Q1: How often do you have a drink containing alc ohol? Never 12/12/2021 Average Number of Drinks Not on file 022 Frequency of Binge Drinking Not on file 11/16 Overall Financial Resource Strain (CARDIA) Answe r Date Recorded How hard is it for you to pa y for the very basics like food, housing, medical care, and heating? Not hard at all 12/12/2021 [facility] Occupat ional Health - Occupational Stress Questionnaire Answer Date Recorded Do you feel stress - tense, restless, nervous, or anxious, or unable to sleep at night because your mind is troubled all the time - these days? Rather much 12/12/2021 Exercise Vital Sign Answer Date Recorde d On average, how many days pe r week do you engage in moderate to strenuous exercise (like a brisk walk)? 0 days 12/12/2021 On average, how many minutes do you engage in exercise at this level? 0 min 12/12/2021 Hunger Vital Sign Answer Date Recorded Within the past 12 months, y ou worried that your food would run out before you got the money to buy more. Never true 12/13/19 22 Within the past 12 months, t he food you bought just didn't last and you didn't have money to get more. Never true 12/12/2021 PRAPARE - Transportation Answer Date Re corded In the past 12 months, has l ack of transportation kept you from medical appointments or from getting medications? Yes 11/16 In the past 12 months, has l ack of transportation kept you from meetings, work, or from getting things needed for daily living? No 12/12/2021 Housing Stability Vital Sign Answer Bishop e Recorded In the last 12 months, was t here a time when you were not able to pay the mortgage or rent on time? No 12/12/2021 In the last 12 months, how many places have you lived? 1 12/12/2021 In the last 12 months, was t here a time when you did not have a steady place to sleep or slept in a prison (including now)? No 12/12/2021 Nutrition Answer Date Recorded Nutrition: EVOO Fat Source Yes 12/12 On average, how many serving s of fruits and vegetables do you eat per day (serving size is equal to 1 cup or approximately the size of a tennis ball)? 2-3 12/12/2021 Dental Answer Date Recorded Dental: Regular Dentist Yes 12/13/19 Employment Answer Date Recorded Employment status Permanently disabled Education Answer Date Recorded What is the highest level of school you have completed or the highest degree you have received? 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, APPRAISER LAND, [place]ILIA) 07/15/2020 Sex and Gender Information Value [...] Total Score: 5 04/29/19 17 10:10 AM CUSTOM HARVESTER documented as of this encounter Care Teams Bar Porter Relationship Specialty Start Date End Date Elsewhere, Pcp PCP - General Internal Medicine 07/16/22 documented as of this encounter
--- OUTSIDE RECORDS SUMMARY | 2023-04-22 12:37 | XMS_ITS | Encounter Summary ---
Author Name Unknown Organization [facility] Address [address] [place] [address] Care Team Providers Care Strand And Binder Controller Name Role Phone Unavailable Primary Care Provider Unavailabl e Encounter Details Date Type Department Care Team (Latest Contact Info) Description 01/12/2022 [facility]ake [facility] Social History Tobacco Use Types Packs/Day Years [...] often do you attend chur ch or mu-ism services? Never 12/12/2021 Do you belong to any clubs o r organizations such as jainism groups, unions, fraternal [...] and heating? Not hard at all 12/12/2021 [facility] of Occupat ional Health - Occupational [...] or slept in a alf (including now)? No 12/12/2021 Nutrition Answer Date [...] 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, ROLL FORM OPERATOR, ODILIA) 07/15/2020 Sex and Gender Information Value Date Recorded Sex Assigned at Female 07/21/2017 2:58 PM CDT Gender Identity Female 07/21/2017 2:58 PM CDT Sexual Orientation Bisexual 07/21/2017 2: 58 PM CDT documented as of this encounter Progress Notes * Chang Villa L.G.S.Katelyn., M.S.W. - 01/12/2022 1:18 PM CDT [facility]: ATC referral SUBJECTIVE Referral received from [facility]missions [facility] Transfer [facility] on 01/13/22, as part of hospital transfer request from [facility] [place], [place], [place] (phone: [phone], fax: [phone]). Social Work spoke to the patient's bedside nurse, Nathalia, who shared that the patient was admitted to the hospital due to concern for infection of surgical site. Oxygen: Patient breathes room air. Patient does not require supplemental oxygen. Bariatric equipment: Patient does not require bariatric equipment, and there is no concern for morbid obesity. Mobility: Patient is presently standby assist with a walker. ADLs: independent Prior to admission, the patient was living independently at home with no home health care services in place. The patient's daughter has been assisting her in the home. Wound care: No concerns Diet: Diabetic diet, by mouth Isolation precautions: None Dialysis: None Behavioral concerns: No concerns Psychiatric concerns: No concerns Legal concerns: No concerns Financial concerns: no concerns identified Family concerns: No concerns identified Multiple hospitalizations: No concerns identified Patient has the following supports: Daughter. OBJECTIVE This patient was not accepted for transfer prior to the assessment process. Spoke with patient's RN, Nathalia. This is a 66 y.o. year old female from [address] [place] [id number]. The patient was admitted to their facility on 01/12/2022. The physician is requesting transfer. Patient is alert and oriented, able to make their own decisions. ASSESSMENT / PLAN It appears that minimal barriers to discharge planning have been identified as noted above. PLAN: I have discussed with the patient's nurse, Nathalia, that in the event the patient is transferred here the social cost of travel such as lodging, meals, and transport home are the personal responsibility of the patient and family. They have agreed to relay this information to the family. Avery Treadwell, M.S.W. 01/13/2022 documented in this encounter Plan of Treatment Not on file documented as of this encounter Visit Diagnoses Not on filedocumented in this encounter Additional Health Concerns Assessment Noted Time PHQ-9 Depression Total Score: 5 04/29/19 17 10:10 AM BROADLOOM WEAVER documented as of this encounter
--- OUTSIDE RECORDS SUMMARY | 2023-04-22 12:37 | XMS_ITS | Encounter Summary ---
Author Name Unknown Organization [facility] Address [address] [place] [address] Care Team Providers Care Senior Games Technician Name Role Phone Elsewhere, Pcp Primary Care Provider Unavailabl e Reason for Referral * Outpatient (Routine) - Closed Specialty Diagnoses / Procedures Referred By Contac t Referred To Contact Diagnoses Pain Cervical Procedures DX Cervical Spine 4-5 Views Buster Herrera M.D. [address] [place] [address] [facility] Referral ID Status Reason Start Date Expiration Date Visits Re quested Visits Authorized [id number] Closed 12/26/2021 12/26/2022 1 1 Reason for Visit * Outpatient (Routine) - Closed Specialty Diagnoses / Procedures Referred By Robyn meehan Referred To Contact Diagnoses Pain Cervical Procedures DX Cervical Spine 4-5 Views Buster Herrera M.D. [address] [place] [address] [facility] Referral ID Status Reason Start Date Expiration Date Visits Re quested Visits Authorized [id number] Closed 12/26/2021 12/26/2022 1 1 Encounter Details Date Type Department Care Team (Latest Contact Info) Description 07/18/2022 11:55 AM CDT - 07/18/2022 11:59 PM CDT Hospital Encounter Department of Radiology, [facility], in [place], [place] [address] [place] [address] Buster Herrera M.D. [address] [place] [address] Pain Cervical Discharge Disposition: Home or Self Care Social History Tobacco Use Types Packs/Day Years [...] often do you attend chur ch or muslim services? Never 07/18/2022 Do you belong to any clubs o r organizations such as yarsani groups, unions, fraternal [...] and heating? Not hard at all 07/18/2022 [facility] - Occupational Stress [...] or slept in a fci (including now)? No 07/18/2022 Nutrition Answer Date Recorded Nutrition: EVOO Fat Source Yes 07/18 On average, how many serving s of fruits and vegetables do you eat per day (serving size is equal to 1 cup or approximately the size of a tennis ball)? 2-3 07/18/2022 Dental Answer Date Recorded Dental: Regular Dentist Yes 12/13/19 Employment Answer Date Recorded Employment status Permanently disabled 3 Education Answer Date Recorded What is the highest level of school you have completed or the highest degree you have received? 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, ENGINEER SOILS, ODILIA) 07/15/2020 Sex and Gender Information Value Date Recorded Sex Assigned at Female 07/21/2017 2:58 PM CDT Gender Identity Female 07/21/2017 2:58 PM CDT Sexual Orientation Bisexual 07/21/2017 2: 58 PM CDT documented as of this encounter Medications at Time of Discharge Medication Sig Dispensed Refills Start Date End Date alcohol swabs pads, medicated Use as needed for diabetes control 200 each 0 12/28/2021 alpha lipoic acid 600 mg capsule Take 600 mg by mouth at bedtime. 0 blood glucose ctl high,nml,low solution Glucose control solution provides an easy way to ensure accurate blood glucose testing. 1 each 0 12/28/2021 blood sugar diagnostic strips 4 test daily. 365 test 0 12/28/2021 blood-glucose meter misc Test as directed for diabetes control. 1 each 0 12/28/2021 co-enzyme Q-10 (CO Q-10) 100 mg capsule Take 1 capsule by mouth daily. 0 04/26/2009 cranberry 400 mg capsule Take 400 mg by mouth daily. 0 10/01/2018 fluticasone propionate (FLOVENT HFA) 110 mcg/actuation inhaler Inhale 1 puff 2 (two) times a day. 0 09/30/2020 FSH/FLX/PRIM/CUR/BOR/O M3,6,9 5 (OMEGA 3-6-9 FATTY ACIDS ORAL) Take 1 capsule by mouth daily. 0 05/01/2016 ginkgo biloba 40 mg tablet Take 120 mg by mouth daily. 0 hydroCHLOROthiazide (for_HYDRODIURIL) 25 mg tablet Take 25 mg by mouth daily. 0 12/09/2016 insulin glargine (Lantus Solostar U-100 Insulin) 100 unit/mL (3 mL) injection Inject 22 Units under the skin every morning. 15 mL 0 12/29/2021 IRON,CARBONYL/ASCORBIC ACID (VITRON-C ORAL) Take 1 tablet by mouth 2 (two) times a day. 0 07/20/2015 lancets 4 each daily. 365 each 0 12/28/2021 loratadine (CLARITIN) 10 mg tablet Take 10 mg by mouth daily. 0 04/18/2022 metFORMIN (for_GLUCOPHAGE) 500 mg tablet Take 1,000 mg by mouth 2 (two) times a day with meals. 0 01/22/2017 multivitamin tablet Take 1 tablet by mouth daily. 0 04/25/2011 nystatin (for_MYCOSTATIN) 100,000 unit/gram cream Apply 1 application topically 2 (two) times a day as needed. 0 10/30/2016 oxyCODONE (ROXICODONE) 5 mg immediate release tabletIndications:Acut e Pain Take 1 tablet (5 mg total) by mouth every 4 (four) hours as needed for moderate pain or score 4-6 of 10 (if other analgesics fail) Indication: Acute Pain. 18 tablet 0 12/27/2021 pen needle, diabetic (BD Ultra-Fine Mini Pen Needle) 31 gauge x 3/16 needle 4 each (4 Injection total) daily. 365 each 0 12/28/2021 prednisoLONE acetate (PRED FORTE) 1 % ophthalmic suspension as needed. 0 06/13/2022 pregabalin (LYRICA) 100 mg capsule Take 100 mg by mouth daily. 0 04/30/2022 pregabalin (LYRICA) 150 mg capsule Take 1 capsule (150 mg total) by mouth 2 (two) times a day. 60 capsule 5 03/31/2017 traZODone (DESYREL) 100 mg tablet Take 100 mg by mouth daily. Taking 2 tablets at bedtime 0 02/17/2020 turmeric root extract 500 mg capsule Take by mouth daily. 0 valACYclovir (VALTREX) 500 mg tablet 0 06/22/2020 venlafaxine XR (EFFEXOR XR) 150 mg 24 hr capsule Take 1 capsule by mouth daily. With 75 mg capsule = 225 mg total dose 0 03/19/2016 venlafaxine XR (EFFEXOR-XR) 75 mg 24 hr capsule Take 75 mg by mouth daily. Take with 150 mg = 225 mg total daily. 0 05/25/2020 Victoza 2-Howie 0.6 mg/0.1 mL (18 mg/3 mL) injection daily. 0 07/02/2022 VOLTAREN 1 % gel Apply 4 g topically 4 (four) times a day as needed. 0 12/05/2016 Xarelto 10 mg tablet Take 10 mg by mouth daily. 0 10/22/2021 documented as of this encounter Plan of Treatment Not on file documented as of this encounter Procedures Procedure Name Priority Date/Time Associated Diagnosis Comments DX CERVICAL SPINE 4-5 VIEWS RAD - Routine (most inpatients and all outpatients) 07/18/2022 12:24 PM CDT Pain Cervical documented in this encounter Results * DX Cervical Spine 4-5 Views (07/18/2022 12:24 PM CDT) Anatomical Region Laterality Modality Cervical Spine, Musculoskele roberth RST LOS, Neuroradiology ARZ LOS, Muskuloskeletal FLA LOS N/A Digita l Radiography 07/18/2022 12:3 2 PM CDT Impressions 07/18/2022 12:34 PM CDT Loss of the normal cervical lordosis. Postoperative changes of dome laminectomies at C3 and C7. Open-door laminoplasties C4-C6. Mild to moderate scattered degenerative disc disease with low-grade subluxations. Mild to moderate facet arthritis. Mild sagittal translation of C3 on C4 with flexion and extension. Narrative 07/18/2022 12:34 PM CDT EXAM: ??DX CERVICAL SPINE 4-5 VIEWS Procedure Note Yayo Pantoja M.D. - 07/18/2022 EXAM: DX CERVICAL SPINE 4-5 VIEWS IMPRESSION: Loss of the normal cervical lordosis. Postoperative changes of domelaminectomies at C3 and C7. Open-door laminoplasties C4-C6. Mild to moderate scattereddegenerative disc disease with low-grade subluxations. Mild to moderate facet arthritis. Mild sagittaltranslation of C3 on C4 with flexion and extension. Buster Herrera M.D. IMG DIAGNOSTIC IM AGING PROCEDURES documented in this encounter Visit Diagnoses Diagnosis Pain Cervical documented in this encounter Additional Health Concerns Assessment Noted Time PHQ-9 Depression Total Score: 5 04/29/19 17 10:10 AM FISH EGG PACKER documented as of this encounter Care Teams Senior Games Technician Relationship Specialty Start Date End Date Elsewhere, Pcp PCP - General Internal Medicine 07/16/22 documented as of this encounter
--- OUTSIDE RECORDS SUMMARY | 2023-04-22 12:37 | XMS_ITS | Referral Summary ---
Author Name Unknown Organization [facility] Address [address] [place] [address] Care Team Providers Care Half Backer Name Role Phone Elsewhere, Pcp Primary Care Provider Unavailabl e Source Comments Patient records contain information from all sites at [facility]. For routine questions regarding patient records, call [phone] during business hours, M-F 8:00 AM - 5:00 PM Central Time. Record requests for emergency care only can be directed to [phone] at any time.[facility] Allergies Active Allergy Reactions Criticality Noted Date [...] Overview: Added automatically from request for surgery [id number] Pain Neuropathic 04/11/2020 Constipation 09/23/2017 Prolapse Vaginal [...] quad (FLUZONE/FLUARIX) (6 months and older)(PF) 12/12/2016,01/11/2016,01/10/2015 Social History Tobacco Use Types Packs/Day Years [...] often do you attend chur ch or cheondoism services? Never 07/18/2022 Do you belong to any clubs o r organizations such as buddhism groups, unions, fraternal [...] and heating? Not hard at all 07/18/2022 [facility] - Occupational [...] or slept in a halfway (including now)? No 07/18/2022 Nutrition Answer Date [...] 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, GROUP COUNSELOR, ODILIA) 07/15/2020 Sex and Gender Information Value [...] 12/24/2021 10:31 AM CDT Plan of Treatment Not on file Medical Devices Implanted Type Area Cage Loader Device Identifier Shelf Expiration Date Model / Serial / Lot Miniplate Double Bend 10mm Spacing Implanted:Qty: 3 on 12/24/2021 by Buster Herrera M.D. at [facility] Hardware e.g. pins/screws /rods N/A: Posterior Cervical Depuy Synthes 443.180 / / Sigma Post Stab.W Lug Fem Sz 5 Rt - Gallo [id number] Implanted:Qty: 1 on 12/18/2011 Knee Implant Other/Legacy - See Implant Description K-12 [employer] Description:Device Manufactu rer - [employer]. Body Location - Other. Right. Device Status Text - KNEE [id number]. Cement Bone Large - Gallo [id number] Implanted:Qty: 1 on 12/18/2011 Misc Other [place] Description:Device Manufactu rer - [place] Mariama.. Device Status Text - [id number]. Advance Directives For more information, please contact: [phone] Documents on File Type Date Recorded Patient Physician Relations Manager Expl anation Advance Directives 12/17/2011 12:00 AM Leg acy document. See document viewer. Latest Code Status on File Code Status Date Activated Date Inactivated Comments Full Code 12/24/2021 6:31 PM 12/28/2021 5:21 PM Question Answer Comments Full Code: Discussed Care Teams Half Backer Relationship Specialty Start Date End Date Elsewhere, Pcp PCP - General Internal Medicine 07/16/22
--- OUTSIDE RECORDS SUMMARY | 2023-04-22 12:37 | XMS_ITS | Encounter Summary ---
Author Name Unknown Organization [facility] Address [address] [place] [address] Care Team Providers Care Branch Logistics Supervisor Name Role Phone Elsewhere, Pcp Primary Care Provider Unavailabl e Reason for Referral * Physical Therapy (Routine) - Authorized Specialty Diagnoses / Procedures Referred By Robyn meehan Referred To Contact Diagnoses Arthrodesis Status Buster Herrera M.D. [address] [place] [phone] Referral ID Status Reason Start Date Expiration Date Visits Requested Visits Authorized [id number] Authorized Continuity of Care 07/18/2022 07/18/2023 99 99 Reason for Visit * Outpatient (Routine) - Closed Specialty Diagnoses / Procedures Referred By Robyn meehan Referred To Contact Orthopedic Surgery Diagnoses Pain Cervical Buster Herrera M.D. [address] [place] [address] [facility] Referral ID Status Reason Start Date Expiration Date Visits Re quested Visits Authorized [id number] Closed 12/26/2021 12/25/2024 1 1 Encounter Details Date Type Department Care Team (Late st Contact Info) Description 07/18/2022 1:30 PM CDT Office Visit Department of Orthopedic Surgery in [place], [place] [address] [place] [phone] Buster Herrera M.D. [address] [place] [address] Arthrodesis Status (Primary Dx); Pain Cervical Social History Tobacco Use Types Packs/Day Years [...] How often do you attend chur or church services? Never 07/18/2022 Do you belong to any clubs o r organizations such as mandaen groups, unions, fraternal [...] and heating? Not hard at all 07/18/2022 [facility] Occupat ional Health - Occupational Stress [...] or slept in a jail (including now)? No 07/18/2022 Nutrition Answer Date Recorded Nutrition: EVOO Fat Source Yes 07/18 On average, how many serving s of fruits and vegetables do you eat per day (serving size is equal to 1 cup or approximately the size of a tennis ball)? 2-3 07/18/2022 Dental Answer Date Recorded Dental: Regular Dentist Yes 12/13/19 22 Employment Answer Date Recorded Employment status Permanently disabled 3 Education Answer Date Recorded What is the highest level of school you have completed or the highest degree you have received? 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, SPECIAL ORDER JEWELER, ODILIA) 07/15/2020 Sex and Gender Information Value Date Recorded Sex Assigned at Female 07/21/2017 2:58 PM CDT Gender Identity Female 07/21/2017 2:58 PM CDT Sexual Orientation Bisexual 07/21/2017 2: 58 PM CDT documented as of this encounter Progress Notes * Buster Herrera M.D. - 07/18/2022 1:30 PM CDT SUBJECTIVE CHIEF COMPLAINT/REASON FOR VISIT Patient returns to us today now approximately 6 months status post cervical laminoplasty. Overall, doing excellent, minimal complaints. 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 Denies any new red flag symptoms. OBJECTIVE PHYSICAL EXAMINATION Musculoskeletal : Neurologically unchanged since our last visit. DIAGNOSTICS On review of the patient's imaging including x-rays of the cervical spine, her laminoplasty C plates are in stable position. I do not see any signs of hardware loosening or failure. ASSESSMENT / PLAN #1 Six months status post cervical laminoplasty At this time, we will have the patient begin some formal physical therapy, as she has not been ableto do this yet, to work on neck strengthening and range of motion activities. Following this, she may resume activities as tolerated. I would like to see her back in roughly 6 months' time at the 1-year cj from surgery with new radiographs and a CT scan. All questions were answered. Buster Herrera M.D. 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
== END 2023-04-19 19:46 | disposition home or self-care (01) ==
LOC: AMB 04-22 12:34
PROVIDERS: PCP Family Medicine; Visit Provider Emergency Medicine
DX: R53.1 Weakness (principal)
CPT/HCPCS: A0998

== ENCOUNTER 2023-05-29 13:04 | Outpatient (CLI) | payer MEDICARE, BC, SELFPAY | END 2023-05-29 13:05 | disposition home or self-care (01) | LOC: NFLDREF 05-30 07:25 | PROVIDERS: PCP Family Medicine; Referring Provider Family Medicine; Visit Provider Family Medicine | DX: R10.2 Pelvic and perineal pain (principal); E11.9 Type 2 diabetes mellitus without complications | CPT/HCPCS: 87086 ==

== ENCOUNTER 2023-08-13 15:10 | Outpatient (REF) | payer MEDICARE, BC, SELFPAY ==
--- OUTSIDE RECORDS SUMMARY | 2023-08-13 15:15 | XMS_ITS | Encounter Summary ---
Author Organization [facility] Address [address] [place] [address] Care Team Providers Care Tailor Women'S Garment Alteration Name Role Phone Denise Harris MD Primary Care Provider Anoop Emery MD Unavailable [phone] Inez Peck See Luis Antonio GARZA Unavailable [phone] Inez Peck See Luis Antonio GARZA Unavailable [phone] Encounter Details Date Type Department Care Team (Late st Contact Info) Description 04/09/2018 [facility] [place] [address] Jeanine Ford DPJose Roberto, Podiatry/Foot and Ankle Surgery [address] [place] [address] [address] Foot pain, bilateral (Primary Dx) Social History [...] process of being sent. Geri Taveras, RN DRY ROOM ATTENDANT documented in this encounter Plan of Treatment Not on file documented as of this encounter Visit Diagnoses Diagnosis Foot pain, bilateral- Primary documented in this encounter Care Teams Tailor Women'S Garment Alteration Relationship Specialty Start Date End Date Denise Harris MD [address] [address] PCP - General Internal Medicine 01/17/15 Anoop Emery MD [address] [address] Referring Physician Family Medicine 09/15/20 Inez Peck MD [address] [place] [address] Urology 09/15/20 Inez Peck MD [address] [place] [address] Assigned Surgical Provider 11/12/20 05/10/22 documented as of this encounter
--- OUTSIDE RECORDS SUMMARY | 2023-08-13 15:15 | XMS_ITS | Encounter Summary ---
Author Organization [facility] Address [address] [place] [address] Care Team Providers Care Gag Writer Name Role Phone Denise Harris MD Primary Care Provider [phone] Anoop Emery MD Unavailable [phone] Inez Peck MD Unavailable [phone] Inez Peck MD Unavailable [phone] Encounter Details Date Type Department Care Team (Late st Contact Info) Description 10/31/2020 [facility] Medical Advice [facility] [address] [place] [address] Inez Peck MD [address] [facility] [address] [place] [address] Social History Tobacco Use Types [...] on filedocumented in this encounter Care Teams Gag Writer Relationship Specialty Start Date End Date Denise Harris MD [address] [address] PCP - General Internal Medicine 01/17/15 Anoop Emery MD [facility] [address] [place] [address] Referring Physician Family Medicine 09/15/20 Inez Peck MD [address] [place] [address] Urology 09/15/20 Inez Peck MD [address] [place] [id number] Assigned Surgical Provider 11/12/20 05/10/22 documented as of this encounter
--- OUTSIDE RECORDS SUMMARY | 2023-08-13 15:15 | XMS_ITS | Clinical Summary ---
Author Organization [facility] Address [address], [place] [address] Care Team Providers Care Boarding Machine Operator Name Role Phone Thalia Barron PA-C Primary Care Provider Un available Source Comments You are receiving this document as you are listed as the primary care provider,follow-up provider, or the patient has been referred to you for consultation.This is in compliance with the Medicare and[facility] EHR Incentive Program,which states Providers who transition their patient to another setting of careor provider of care or refers their patient to another provider of care shouldprovide summary care record for each transition of care or referral. [place] Allergies Active Allergy Reactions Criticality Noted Date [...] Take one tablet by mouth every day. 07/06/2007 Active REMERON 15 MG OR TABS Take one tablet by mouth daily 07/06/2007 Active ACYCLOVIR 200 MG OR CAPS as needed 07/06/2007 Active TRAZODONE HCL 50 MG OR TABS Take one tablet by mouth at bedtime. 07/06/2007 Active VITEX EXTRACT 175 MG OR CAPS Take one capsule by mouth twice daily 07/06/2007 Active COENZYME Q10 100 MG OR TABS Take one tablet by mouth daily 07/06/2007 Active L-LYSINE HCL 500 MG OR TABS Take 2 tablets by mouth every morning 07/06/2007 Active FISH OIL 1200 MG OR CAPS Take by mouth twice daily 07/06/2007 Active DOCUSATE SODIUM 100 MG OR CAPS Take 1 tablet by mouth 4 times daily 07/06/2007 Active CITRACAL + D 315-200 MG-UNIT OR TABS Take 2 tablets by mouth daily 07/06/2007 Active GLUCOSAMINE CHONDROITIN COMPLX OR TABS Take 2 tablets by mouth daily 07/06/2007 Active MULTIPLE VITAMIN TABS Take one tablet by mouth twice daily. 07/06/2007 Active FOLIC ACID 400 MCG OR TABS Take one tablet by mouth 07/06/2007 Active GNP SENNA 8.6 MG OR CAPS Take 2-4 tablets by mouth daily as needed at bedtime 07/06/2007 Active ECHINACEA 400 MG OR CAPS Take one tablet by mouth twice daily 07/06/2007 Active TYLENOL ARTHRITIS PAIN 650 MG OR TBCR Take 2 tablets by mouth as needed 07/06/2007 Active IBUPROFEN 200MG ORAL TABS Take 1-2 tablets by mouth every 4-6 hours as needed for pain. 07/06/2007 Active INDOMETHACIN 50 MG OR CAPS Take one capsule by mouth three times a day 09/29/2007 Active CYMBALTA 30MG ORAL CAPS Take 4 capsules by mouth daily 09/29/2007 Active hydrochlorothiazide (AKA HYDRODIURIL) 25 MG tablet Take 1 tablet by mouth daily (every 24 hours). LW Addl Instr:Indicated for: High Blood Pressure 90 3 03/27/2009 Active LYSINE OR Take 1 tablet by mouth 2 times daily. LW Addl Instr:pt takes in morning and at noon 04/26/2009 Active Psyllium (METAMUCIL) 48.57 % powder Take 1 tsp by mouth daily (every 24 hours). LW Addl Instr:Dissolve in full glass of water or juice. 04/26/2009 Active loratadine (AKA CLARITIN) 10 MG [...] 1 tablet by mouth 2 times daily. 04/26/2009 Active betamethasone dipropionate (AKA DIPROSONE) 0.05 % cream Apply 1 Application topically NEEDED PRN. LW Addl Instr:for eczema on hand 15 04/26/2009 Active [place]-3 Fatty Acids (CVS FISH OIL) 1200 MG CAPS Take 1 capsule by mouth 2 times daily. 04/26/2009 Active calcium citrate-vitamin D (CITRACAL MAXIMUM) 315-250 MG-UNIT tablet Take 1 capsule by mouth 2 times daily. LW Addl Instr:pt takes 1 in the evening and 1 at bedtime 04/26/2009 Active amitriptyline (AKA ELAVIL) 10 MG [...] and 1 in pm for total treatment 04/26/2009 Active senna (SENNA) 8.6 MG tablet Take 2 tablets by mouth at bedtime as needed. LW Addl Instr:INDICATED FOR CONSTIPATION. 04/26/2009 Active Coenzyme Q10 (CO Q 10) 100 MG Take 1 capsule by mouth daily (every 24 hours). 04/26/2009 Active [employer]S ECHINACEA 400 MG CAPS Take 1 capsule by mouth daily (every 24 hours). 04/26/2009 Active DESOWEN LOTION/NIZORAL CREAM 1 TO 1 Apply topically 2 times daily. LW Addl Instr:Desowen cream and Nizoral cream mixed 50/50. Apply as directed to affected area twice daily as needed. 04/27/2009 Active Acetaminophen 650 MG Take 1-2 tablets by mouth every 8 hours as needed. LW Addl Instr:Maximum of 6 tablets/24 hours. 50 12 04/26/2009 Active nystatin-triamcinolo ne (AKA MYCOLOG-II) 844865-0.1 UNIT/GM-% cream Apply 1 Applicatorful topically 3 times daily. LW Addl Instr:pt applies to left corner of eye and left corner of mouth 15 3 04/26/2009 Active Carboxymethylcellulo se Sodium 1 % eye gel Apply 1 drop to eye 2 times daily as needed. 15 04/26/2009 Active UNKNOWN MEDICATION Indications: PN: 01/24/2010 Active DULoxetine (AKA CYMBALTA) 60 MG [...] Comments Blood Pressure 118/80 05/01/2009 7:20 AM WIRE COATER C: Dynamap Pulse 102 05/01/2009 7:20 AM WIRE COATER Temperature 36.7 ??C (98.1 ??F) 05/01/2009 7 :20 AM WIRE COATER ORAL C: 98.1 F Respiratory Rate 16 05/01/2009 7:20 AM WIRE COATER Oxygen Saturation 96% 05/01/2009 7:2 1 AM WIRE COATER Inhaled Oxygen Concentration - - Weight - [...] PCV20) 09/21/2020 09/22/2019 COVID-19 Vaccine (2 - season) 2022 05/19/2020 Influenza (Season Ended) 2023 019, 12/30/2017, 12/30/2017, Additional history exists DTaP/Tdap/Td (2 [...] age to complete this topic Care Teams Boarding Machine Operator Relationship Specialty Start Date End Date Thalia Barron PA-C PCP - General Physician Movement Therapist 10/06/18
--- OUTSIDE RECORDS SUMMARY | 2023-08-13 15:15 | XMS_ITS | Clinical Summary ---
Author Organization [facility] Address [address] [place] [address] Care Team Providers Care Transcripter Name Role Phone Denise Harris MD Primary Care Provider [phone] Anoop Emery MD Unavailable [phone] Inez Peck MD Unavailable [phone] Allergies Active Allergy Reactions Criticality Noted Date Comments Food Diarrhea 02/06/2015 Red Beets Medications Medication Sig Dispensed Refills Start Date End Date Status DULoxetine (CYMBALTA) 60 MG capsule Take 60 mg by mouth 2 times daily Active eszopiclone (LUNESTA) 2 MG tablet Take 2 mg by mouth At Bedtime Active hydrochlorothiazide (HYDRODIURIL) 25 MG tablet Take 25 mg by mouth daily Active sennosides (SENOKOT) 8.6 MG tablet Take 1 tablet by mouth 2 times daily Active pregabalin (LYRICA) 150 MG capsule Take 150 mg by mouth 3 times daily Active Sells-3 Fatty Acids (OMEGA 3 PO) Take by mouth 2 times daily Active Turmeric 500 MG CAPS Take by mouth 2 times daily Active Coenzyme Q10 (COQ10) 200 MG CAPS Take by mouth daily Acti ve Ginkgo Biloba 40 MG TABS Take 120 mg by mouth daily Active Multiple Vitamins-Minerals (WOMENS DAILY FORMULA PO) Take by mouth 2 times daily Two tablets twice daily Active IRON PO Take 65 mg by mouth 2 times daily Active amoxicillin (AMOXIL) 500 MG capsule Take 500 mg by mouth as needed (prior to dental work) Active Valerian 500 MG CAPS Take 500 mg by mouth as needed Active hydrocortisone (ANUCORT-HC) [address] 25 mg rectally as needed for hemorrhoids Active diclofenac (VOLTAREN) 1 % GEL Place onto the skin as needed for moderate pain Active triamcinolone (KENALOG) 0.5 % cream Apply topically as needed for irritation Active silver sulfADIAZINE (SILVADENE) 1 % external creamIndications:Foot pain, bilateral,Ingrown nail of great toe of left foot,Ingrown nail of second toe of left foot,Pes planus of both feet,Plantar fasciitis, bilateral,Achilles tendonitis, bilateral Apply topically 2 times daily Apply to left toes 2x a day. 25 g 1 04/08/2018 Active metFORMIN (GLUCOPHAGE) 500 MG tablet Take 500 mg by mouth 01/22/2017 Active venlafaxine (EFFEXOR-XR) 150 MG 24 hr capsule TAKE 1 CAPSULE BY MOUTH DAILY FOR A TOTAL DOSE OF 225 08/25/2020 Active valACYclovir (VALTREX) 500 MG tablet Twice A Day 05/11/2020 Active traZODone (DESYREL) 100 MG tablet Bedtime 09/29/2014 Active pramipexole (MIRAPEX) 0.125 MG tablet Daily as needed 05/11/2020 Acti ve loratadine (CLARITIN) 10 MG tablet Take 1 tablet by mouth daily 08/24/2020 Active FLOVENT HFA 110 MCG/ACT inhaler INHALE 1 PUFF BY MOUTH TWICE DAILY 09/30/2020 Active Active Problems Problem Noted Date [...] Vaccine (2 - 2022- season) 2022 05/19/2020 BMP 01/03/2023 01/03/2022 INFLUENZA VACCINE (Season Ended) 2023 01/07/2019, 01/07/2019, 12/30/2017, Additional history exists DTAP/TDAP/TD IMMUNIZATION (5 - Td or Tdap) [...] on patient's age to complete this topic Procedures Procedure Name Priority Date/Time Associated Diagnosis Comments BASIC METABOLIC PANEL Routine 01/03/2022 10:12 AM CDT Cough, unspecified Type 2 diabetes mellitus without complications (H) Major depressive disorder, recurrent, in partial remission (H) from Last 3 Months or Most Recently Relevant to Health Maintenance Results * (ABNORMAL) Basic metabolic panel (01/03/2022 10:12 AM CDT) Sodium 140 136 - 145 mmol/L 01/03/2022 8:32 PM CDT [facility] Potassium 4.1 3.4 - 5.3 mmol/L 01/03/2022 8:32 PM CDT [facility] Chloride 100 98 - 107 mmol/L 01/03/2022 8:32 PM CDT [facility] Carbon Dioxide (CO2) 24 22 - 29 mmol/L 01/03/2022 8:32 PM CDT [facility] Anion Gap 16(H) 7 - 15 mmol/L 01/03/2022 8:32 PM CDT [facility] Urea Nitrogen 12.1 8.0 - 23.0 mg/dL 01/03/2022 8:32 PM CDT [facility] Creatinine 0.68 0.51 - 0.95 mg/dL 01/03/2022 8:32 PM CDT [facility] Calcium 9.8 8.8 - 10.2 mg/dL 01/03/2022 8:32 PM CDT [facility] Glucose 203(H) 70 - 99 mg/dL 01/03/2022 8:32 PM CDT [facility] GFR Estimate >90 >60 mL/min/1.7 3m2 01/03/2022 8:32 PM CDT [facility] Comment:Effective February 152020 eGFRcr in adults is calculated using the 2021 CKD-EPI creatinine equation which includes age and gender (Jeni et al., NEJM, DOI: 10.1056/MNEUtr5897373) Blood STRUCTURE OF LEFT UPPER LIMB / Unknown Venipuncture / Unknown 01/03/2022 10:12 AM CDT 01/03/2022 5:44 PM CDT Emi Wyatt [facility] - BLOOD ORDERABL ES [facility] [address] [facility] [address], [address] [place] [address], [facility] [phone] from Last 3 Months or Most Recently Relevant to Health Maintenance Care Teams Transcripter Relationship Specialty Start Date End Date Denise Harris MD [facility] [address] [place] [address] PCP - General Internal Medicine 01/17/15 Anoop Emery MD [facility] [address] [place] [address] Referring Physician Family Medicine 09/15/20 Inez Peck MD [address] [place] [address] [address] [place] [address] Urology 09/15/20
--- OUTSIDE RECORDS SUMMARY | 2023-08-13 15:15 | XMS_ITS | Clinical Summary ---
Author Organization [facility] Address [place], [place] [address] Care Team Providers Care Blood Bank Specialist Name Role Phone Anoop Emery MD Primary Care Provider [phone] Allergies Active Allergy Reactions Criticality Noted Date Comments Mupirocin *Unknown Unknown 09/10/2018 Medications Medication Sig Dispensed Refills Start Date End Date Status MULTIVITAMIN TAB take 1 tablet by oral route once daily with food 0 12/30/2006 Active blood glucose control, normal (CONTOUR NEXT LEV 2 CONTROL JONNY) soln U UTD 03/12/2017 Active CONTOUR NEXT TEST STRIPS strip [...] tablet by mouth once daily. 90 tablet 04/08/2019 Active glipiZIDE extended-release (GLUCOTROL XL) 5 mg Extended-Release tablet Take 5 mg by mouth. 05/15/2021 Activ e Xarelto 10 mg tablet Take 10 mg by mouth. 07/04/2021 Acti ve pregabalin (LYRICA) 150 mg capsuleIndication s:Fibromyalgia Take 1 Capsule (150 mg) by mouth two times daily. 20 Capsule 12/28/2021 Active acetaminophen (TYLENOL EXTRA STRGTH) 500 mg tabletIndications :Pain Take 2 Tablets (1,000 mg) by mouth four times daily. Max acetaminophen dose: 4000mg in 24 hrs. 12/28/2021 Active alpha lipoic acid 600 mg capsule Take 1 Capsule (600 mg) by mouth once daily. 12/28/2021 Active coenzyme q10 (Co Q-10) 100 mg cap Take 1 Capsule (100 mg) by mouth once daily. 12/28/2021 Active Cranberry 400 mg capsule Take 1 Capsule (400 mg) by mouth once daily. 12/28/2021 Active diazePAM (VALIUM) 5 mg tabletIndications :RLS (restless legs syndrome) Take 1 Tablet (5 mg) by mouth 3 times daily if needed. 12/28/2021 Active fluticasone (50 mcg per actuation) nasal solution (FLONASE)Indicati ons:Seasonal allergies Inhale 1 [place] to both nostrils two times daily. 12/28/2021 Active Ginkgo Biloba 120 mg tablet Take 1 Tablet (120 mg) by mouth once daily. 12/28/2021 Active insulin aspart, U-100, (NOVOLOG FLEXPEN) 100 unit/mL (3 mL) penIndications:Ty pe 2 diabetes mellitus without complication, with long-term current use of insulin (HC) Inject 8 units subcutaneous three times daily before meals. 12/28/2021 Active insulin glargine, U-100, (Lantus Solostar U-100 Insulin) 100 unit/mL (3 mL) penIndications:Ty pe 2 diabetes mellitus without complication, with long-term current use of insulin (HC) Inject 22 units subcutaneous once daily. Product desired: LANTUS SOLOSTAR 12/29/2021 Active metFORMIN (GLUCOPHAGE) 500 mg tabletIndications :Type 2 diabetes mellitus without complication, with long-term current use of insulin (HC) Take 2 Tablets (1,000 mg) by mouth two times daily with meals. 12/28/2021 Active polyethylene glycoL (MIRALAX) 17 gram/dose powder Mix 1 scoop (17 g) in liquid then take by mouth once daily. 12/29/2021 Active nystatin (MYCOSTATIN) ointmentIndicatio ns:Dermatitis Apply topically to affected area(s) 2 times daily if needed. 12/28/2021 Active fish,bora,flax oils-om3,6,9no1 ([place] 3-6-9) 1,200 mg cap Take 1 capsule. by mouth once daily. 12/28/2021 Active pramipexole (MIRAPEX) 0.125 mg tabletIndications :RLS (restless legs syndrome),Fibromy algia Take 2 Tablets (0.25 mg) by mouth at bedtime. 12/28/2021 Active pramipexole (MIRAPEX) 0.125 mg tablet Take 3 Tablets (0.375 mg) by mouth once daily. Take at 1pm 12/29/2021 Active iron,carbonyl-vit escobedo C (VITRON C) 65 mg iron- 125 mg Delayed-Release tablet Take 1 Tablet by mouth two times daily with meals. 12/28/2021 Active diclofenac topical (Voltaren) 1 % gelIndications:Ot her chronic pain Apply topically to affected area(s) 4 times daily if needed. 12/28/2021 Active oxyCODONE (ROXICODONE) 5 mg immediate release tabletIndications :Postoperative pain after spinal surgery Take 1 Tablet (5 mg) by mouth every 4 hours if needed for Pain. 30 Tablet 01/02/2022 Active traZODone (DESYREL) 100 mg tablet [...] 12/11/2021, 02/07/2021, 05/19/2020 Influenza for age 65+ 11/16/2023 12/20/2021 , 01/03/2021, 01/07/2019, Additional history exists Lipids for age 45-75 12/09/2023 12/08/2018 Tetanus booster 06/21/2024 06/21/2014, 07/23/2006 Tdap Completed 06/21/2014 Hepatitis C screening for ag e 18-79 Completed 01/07/2019 Pneumococcal series for age 65+ Completed 2, 09/22/2019 Procedures Procedure Name Priority Date/Time Associated Diagnosis Comments ANTI HCV Routine 01/07/2019 1:40 PM CDT Need for hepatitis C screening test LIPID PANEL W REFLEX MEASURED LDL Routine 12/08/2018 4:10 PM CDT Chronic diastolic CHF (congestive heart failure) (HC) Mitral valve disorders Chronic diastolic heart failure (HC) ROLLINS (dyspnea on exertion) from Last 3 Months or Most Recently Relevant to Health Maintenance Results * ANTI HCV (01/07/2019 1:40 PM CDT) Pathologist [facility] [place] HEPATITIS C ANTIBODY Non-React shandra Non-React shandra 01/07/2019 8:28 PM CDT [facility] Comment:Antibodies to HCV no t detected; does not exclude the possibility of exposure to HCV. Blood BLOOD SPECIMEN / Unknown Venipuncture / Unknown 01/07/2019 1:40 PM CDT 01/07/2019 1:47 PM CDT [facility] [address] [place] [address], [place] * (ABNORMAL) LIPID PANEL W REFLEX MEASURED LDL (12/08/2018 4:10 PM CDT) CHOLESTEROL,TOTAL 213(H) 100 - 199 mg/dL 12/08/2018 8:47 PM CDT [facility] TRIGLYCERIDES 249(H) <150 mg/dL 12/08/2018 8:47 PM CDT [facility] HDL CHOLESTEROL 49 >40 mg/dL 9 8:47 PM CDT [facility] NON-HDL CHOLESTEROL 164(H) <145 mg/dl 12/08/2018 8:47 PM CDT [facility] CHOL/HDL RATIO 4.35 <4.50 12/08/2018 8:47 PM CDT [facility] LDL CHOLESTEROL 114 <=130 mg/dL 12/08/2018 8:47 PM CDT [facility] PROVIDER ORDERED STATUS [place]OM 12/08/2018 8:47 PM CDT [facility] Blood BLOOD SPECIMEN / Unknown Venipuncture / Unknown 12/08/2018 4:10 PM CDT 12/08/2018 4:37 PM CDT Keon Hong MD [facility] [address] [place] [address], from Last 3 Months or Most Recently Relevant to Health Maintenance Advance Directives * Full Code (Latest Code Status on File) Date Activated Date Inactivated Comments 2005 1:25 PM 05/17/2005 7:54 PM * Full Code Date Activated Date Inactivated Comments 2005 9:32 AM 2005 1:25 PM Care Teams Blood Bank Specialist Relationship Specialty Start Date End Date Anoop Emery MD [address] [place] [address] PCP - General Family Practice 04/09/21
--- OUTSIDE RECORDS SUMMARY | 2023-08-13 15:15 | XMS_ITS | Clinical Summary ---
Author Organization [facility] Address [address] [place] [address] Care Team Providers Care Right Of Way Supervisor Name Role Phone Elsewhere, Pcp Primary Care Provider Unavailabl e Source Comments Patient records contain information from all sites at [facility]. For routine questions regarding patient records, call [phone] during business hours, M-F 8:00 AM - 5:00 PM Central Time. Record requests for emergency care only can be directed to [phone] at any time.[facility] Allergies Active Allergy Reactions Criticality Noted Date Comments Mupirocin Other (see comments) 09/10/2018 Medications Medication Sig Dispensed Refills Start Date End Date Status multivitamin tablet Take 1 tablet by mouth daily. 04/25/2011 Active FSH/FLX/PRIM/CUR/B OR/OM3,6,9 5 (OMEGA 3-6-9 FATTY ACIDS ORAL) Take 1 capsule by mouth daily. 05/01/2016 Active venlafaxine XR (EFFEXOR XR) 150 mg 24 hr capsule Take 1 capsule by mouth daily. With 75 mg capsule = 225 mg total dose 03/19/2016 Active VOLTAREN 1 % gel Apply 4 g topically 4 (four) times a day as needed. 12/05/2016 Active hydroCHLOROthiazid e (for_HYDRODIURIL) 25 mg tablet Take 25 mg by mouth daily. 12/09/2016 Active metFORMIN (for_GLUCOPHAGE) 500 mg tablet Take 1,000 mg by mouth 2 (two) times a day with meals. 01/22/2017 Active nystatin (for_MYCOSTATIN) 100,000 unit/gram cream Apply 1 application topically 2 (two) times a day as needed. 10/30/2016 Active pregabalin (LYRICA) 150 mg capsule [...] by mouth 2 (two) times a day. 07/20/2015 Active traZODone (DESYREL) 100 mg tablet Take 100 mg by mouth daily. Taking 2 tablets at bedtime 02/17/2020 Active ginkgo biloba 40 mg tablet Take 120 mg by mouth daily. Active turmeric root extract 500 mg capsule Take by mouth daily. Active cranberry 400 mg capsule Take 400 mg by mouth daily. 10/01/2018 Active co-enzyme Q-10 (CO Q-10) 100 mg capsule Take 1 capsule by mouth daily. 04/26/2009 Active venlafaxine XR (EFFEXOR-XR) 75 mg 24 hr capsule Take 75 mg by mouth daily. Take with 150 mg = 225 mg total daily. 05/25/2020 Active valACYclovir (VALTREX) 500 mg tablet 06/22/2020 Active alpha lipoic acid 600 mg capsule Take 600 mg by mouth at bedtime. Active fluticasone propionate (FLOVENT HFA) 110 mcg/actuation inhaler Inhale 1 puff 2 (two) times a day. 09/30/2020 Active Xarelto 10 mg tablet Take 10 mg by mouth daily. 10/22/2021 Active oxyCODONE (ROXICODONE) 5 mg immediate release tabletIndications: Acute Pain Take 1 tablet (5 mg total) by mouth every 4 (four) hours as needed for moderate pain or score 4-6 of 10 (if other analgesics fail) Indication: Acute Pain. 18 tablet 12/27/2021 Active lancets 4 each daily. 365 each 12/28/2021 Active alcohol swabs pads, medicated Use as needed for diabetes control 200 each 12/28/2021 Active blood glucose ctl high,nml,low solution Glucose control solution provides an easy way to ensure accurate blood glucose testing. 1 each 12/28/2021 Active pen needle, diabetic (BD Ultra-Fine Mini Pen Needle) 31 gauge x 3/16 needle 4 each (4 Injection total) daily. 365 each 12/28/2021 Active blood sugar diagnostic strips 4 test daily. 365 test 12/28/2021 Active blood-glucose meter misc Test as directed for diabetes control. 1 each 12/28/2021 Active insulin glargine (Lantus Solostar U-100 Insulin) 100 unit/mL (3 mL) injection Inject 22 Units under the skin every morning. 15 mL 12/29/2021 Active pregabalin (LYRICA) 100 mg capsule Take 100 mg by mouth daily. 04/30/2022 Active prednisoLONE acetate (PRED FORTE) 1 % ophthalmic suspension as needed. 06/13/2022 Active loratadine (CLARITIN) 10 mg tablet Take 10 mg by mouth daily. 04/18/2022 Active Victoza 2-Howie 0.6 mg/0.1 mL (18 mg/3 mL) injection daily. 07/02/2022 Active Active Problems Problem Noted Date Diagnosed Date Scoliosis 12/21/2021 Body Mass Index 40.0 To 44.9 Adult 12/21/2021 Obstructive Sleep Apnea Adult 12/21/2021 Smoking Tobacco Use Personal History 12/21/2021 Embolus Pulmonary Personal History 12/18/2021 Anticoagulant Therapy 12/18/2021 Myelopathy Cervical 11/14/2021 Overview: Added automatically from request for surgery [id number] Pain Neuropathic 04/11/2020 Constipation 09/23/2017 Prolapse Vaginal 09/23/2017 Arthroplasty Total Knee Replacement Status Post Bilateral 09/23/2017 Fasciitis Plantar 09/23/2017 Bursitis 09/23/2017 Osteoarthritis 09/23/2017 Hypertension Essential Primary 09/23/2017 Restless Leg Syndrome 09/23/2017 Nodule Thyroid 09/23/2017 Eczema 09/23/2017 Tendinitis Achilles Right 07/29/2017 Diabetes Mellitus Type 2 [...] Influenza, Seasonal, Injectable 12/30/2006 Influenza, Unspecified 01/14/2009,11/30/2008, PPSV23 07/02/2021 SARS-COV-2 (COVID-19) - CUBA LUNDBERG (J&J)(Discontinued) [...] Obesity Father Sunil Pace Prostate cancer Father Suinl Pace Breast cancer Mother Swathi pace Diabetes [...] often do you attend chur ch or synagogue services? Never 07/18/2022 Do you belong to any clubs o r organizations such as lutheran groups, unions, fraternal [...] and heating? Not hard at all 07/18/2022 [facility] [place] of Occupat ional Health - Occupational Stress [...] or slept in a longterm (including now)? No 07/18/2022 Nutrition Answer Date [...] 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, SUEDING MACHINE TENDER, ODILIA) 07/15/2020 Sex and Gender Information Value [...] history exists Fall Risk Screen (Annual) 03/17/2023 COVID-19 Vaccine (5 - 2022-2 4 season) 2023 12/26/2022, 12/11/2021, 02/07/2021, Additional history exists DTaP,Tdap,and Td Vaccines (2 - Td or Tdap) 06/21/2024 06/21/2014, 07/23/2006, 07/23/2006 Cervical Cancer Screening Discontinued 2016 (Performed elsewhere), 07/16/2011 (Performed elsewhere) Pneumococcal vaccine (65+ years) Completed 07/03/19, 09/22/2019 Bone Density Scan (Osteoporo sis Screen) Discontinued 12/18/2021 Influenza Vaccine Completed 12/26/2022, , 01/03/2021, Additional history exists Medical Devices Implanted Type Area Measurer Machine Device Identifier Shelf Expiration Date Model / Serial / Lot Self Drilling Cortex Screw 6mm Implanted:Qty: 5 on 12/24/2021 by Buster Herrera M.D. at [facility] Hardware e.g. pins/screws /rods N/A: Posterior Cervical Depuy Synthes [id number] / / Self Drilling Cortex Screw 8mm Implanted:Qty: 6 on 12/24/2021 by Buster Herrera M.D. at [facility] Hardware e.g. pins/screws /rods N/A: Posterior Cervical Depuy Synthes [id number] [id number] / / Miniplate Double Bend 10mm Spacing Implanted:Qty: 3 on 12/24/2021 by Buster Herrera M.D. at [facility] Hardware e.g. pins/screws /rods N/A: Posterior Cervical Depuy Synthes [id number] / / J J Sig Tib Poly Stab #4 8.0m - Gallo [id number] Implanted:Qty: 1 on 12/18/2011 Knee Implant Other/Legacy - See Implant Description [employer] Description:Device Manufactu [facility] - [employer] J [facility]. Body Location - Other. Right. Device Status Text - KNEE [id number]. J J Patella Rev Round 35m - Gallo [id number] Implanted:Qty: 1 on 12/18/2011 Knee Implant Other/Legacy - See Implant Description [employer] Description:Device Manufactu rer - [employer]. Body Location - Other. Right. Device Status Text - KNEE [id number]. Sigma Post Stab.W Lug Fem Sz 5 Rt - Gallo [id number] Implanted:Qty: 1 on 12/18/2011 Knee Implant Other/Legacy - See Implant Description [employer] Description:Device Manufactu rer - [employer]. Body Location - Other. Right. Device Status Text - KNEE [id number]. Cement Bone Small - [place]o [id number] Implanted:Qty: 1 on 12/18/2011 Mis Other [place] Description:Device Manufactu rer - Shanna Mariama.. Device Status Text - [id number]. Cement Bone Large - Gallo [id number] Implanted:Qty: 1 on 12/18/2011 Mis Other Shanna Description:Device Manufactu rer - Shanna Mariama.. Device Status Text - [id number]. Procedures Procedure Name Priority Date/Time Associated Diagnosis Comments EXTI BASIC METABOLIC PANEL, FASTING, S Routine 01/03/2022 10:12 AM CDT HEMOGLOBIN A1C, B Routine 12/18/2021 12: 28 PM CDT Preoperative Exam EXTI LIPID PANEL W REFLEX MEASURED LDL Routine 12/08/2018 4:10 PM CDT from Last 3 Months or Most Recently Relevant to Health Maintenance Results * (ABNORMAL) Hemoglobin A1c (12/18/2021 12:28 PM CDT) Hemoglobin A1c, B 9.0(H) 4.0 - 5.6 % 12/18/2021 1:22 PM CDT [facility] Comment: Hemoglobin A1c values greater than or equal to 6.5 percent are diagnostic for diabetes mellitus. ??Diagnosis should be confirmed by repeat testing. ??In diabetic patients, HbA1c goals should be discussed with healthcare provider. Blood (Blood, Venous) 12/18/2021 12:28 PM CDT 12/18/2021 12:38 PM CDT Buster Herrera M.D. LAB BLOOD ADD-ON [facility] [address] [place] [address], [place] DTL [facility] [address] [place] [address] from Last 3 Months or Most Recently Relevant to Health Maintenance Advance Directives For more information, please contact: [phone] Documents on File Type Date Recorded Patient Commercial Loan Coordinator Expl anation Advance Directives 12/17/2011 12:00 AM Leg acy document. See document viewer. * Full Code (Latest Code Status on File) Date Activated Date Inactivated Comments 12/24/2021 6:31 PM 12/28/2021 5:21 PM Question Answer Comments Full Code: Discussed Care Teams Right Of Way Supervisor Relationship Specialty Start Date End Date Elsewhere, Pcp PCP - General Internal Medicine 07/16/22
--- OUTSIDE RECORDS SUMMARY | 2023-08-13 15:15 | XMS_ITS | Referral Summary ---
Author Organization [facility] Address [address] [place] [address] Care Team Providers Care Adjunct Faculty Instructor Name Role Phone Denise Harris MD Primary Care Provider Anoop Emery MD Unavailable [phone] Inez Peck MD Unavailable [phone] Allergies Active Allergy Reactions Criticality Noted Date [...] mg by mouth 3 times daily Active Campton-3 Fatty Acids (OMEGA 3 PO) Take by [...] CDT Plan of Treatment Not on file Procedures Procedure Name Priority Date/Time Associated Diagnosis [...] eGFRcr in adults is calculated using the 2020 CKD-EPI creatinine equation which includes age and gender (Jeni et al., NEJ, DOI: 10.1056/LVPDjv9481051) Blood STRUCTURE OF LEFT UPPER LIMB / Unknown Venipuncture / Unknown 01/03/2022 10:12 AM CDT 01/03/2022 5:44 PM CDT Emi Wyatt NP LAB - BLOOD ORDERABL ES [facility] [place] [facility] [address] [facility], [address] [place] [address], [facility] [phone] from Last 3 Months or Most Recently Relevant to Health Maintenance Care Teams Adjunct Faculty Instructor Relationship Specialty Start Date End Date Denise Harris MD [facility] [address] [place] [address] PCP - General Internal Medicine 01/17/15 Anoop Emery MD [facility] [address] [place] [address] Referring Physician Family Medicine 09/15/20 Inez Peck MD [address] [place] [address] Urology 09/15/20
--- OUTSIDE RECORDS SUMMARY | 2023-08-13 15:16 | XMS_ITS | Continuity of Care Document ---
Author Organization [facility] Address [address] [place] [address] Phone Care Team Providers Care Hybrid Technologist Name Role Phone Logan Hart Unavailable Unavailable Allergies, Adverse Reactions, Alerts Substance Reaction Status Criticality No Known Allergies Active No Inform ation Medications Medication Instructions Dosage Effective Dates (start - stop) Status Comments Lyrica 150 mg capsule take 1 capsule by oral route 3 times every day 150 MG - Active venlafaxine ER 225 mg tablet,extended release 24 hr take 1 tablet by oral route every day in the morning at the same time each day with food 225 MG - Active oxycodone 10 mg tablet take 1 tablet by oral route at bedtime - Active Voltaren Arthritis Pain 1 % topical gel apply 2 gram by topical route 4 times every day to the affected area(s) 2.00 gram - Active hydrochlorothiazide 25 mg tablet take 1 tablet by oral route every day 25 MG - Active metformin 1,000 mg tablet take 1 tablet by oral route 2 times every day with morning and evening meals 1000 MG - Active trazodone 100 mg tablet take 1 tablet by oral route every day after meals 100 MG - Active Xarelto 10 mg tablet take 1 tablet by oral route every day 10 MG - Active pramipexole ER 0.375 mg tablet,extended release 24 hr take 1 tablet by oral route every day 0.375 MG - Active Medrol (Howie) 4 mg tablets in a dose pack take by Oral route as directed on pack Not Available - No Longer Active Procedures Procedure Date [facility] Lead Pull Satellite No Charge For Visit Per Prov IMPLANT NEUROELECTRODES ANALYZE NEUROSTIM, COMPLEX IMPLANT NEUROELECTRODES OFFICE VISIT, EST TELEMEDICINE 23 PT EVAL MOD COMPLEX 30 MIN Psych Dx Eval OFFICE/OUTPATIENT VISIT, EST Drug Urine Toxology With Chromatography Drug test def 8-14 classes OFFICE/OUTPATIENT VISIT, NEW Advance Directives Directive Yes / No Effective Date File Name No Information Encounters Encounter Description Practice Location Reason(s) For Visit Diagnoses Date Provider Providers Copied on Encounter [facility], [address] [place] [address], [id number] , [place] tel:[phone] [facility] Type 2 diabetes mellitus with diabetic neuropathy, unspecified 3 Yoon Ford. [address] [facility] [address] [facility] [address], [place], [id number], [place]. tel:[phone] Referring Provider: Anoop Emery, [address], [address]. tel:[phone] [facility], [address] [place] [address], [id number] , [place] tel:[phone] [facility] Type 2 diabetes mellitus with diabetic neuropathy, unspecified 3 Niesha Broderick. [address] [place], [place], [id number], [place]. tel:[phone] Referring Provider: Anoop Emery [facility] [address] [place], [address]. tel:[phone] OFFICE VISIT, EST TELEMEDICINE [facility], [address] [place] [address], [id number] , [place] tel:[phone] [facility] Widespread pain (chief complaint) Type II diabetes mellitus with diabetic neuropathy 3 Kira Bergeron. [address] [facility] [address], [facility] [address], [place], [id number], [place]. tel:[phone] [facility], [address] [place] [address], [id number] , [place] [phone] [facility] [place] pain (chief complaint) Type II diabetes mellitus with diabetic neuropathy 3 Lalitha Sandoval. [address] [place], [place], [id number], [place]. [phone] Psych Dx Eval [facility], [address] [place] [address], [id number] , [place] tel:[phone] Telehealth Pain disorder with related psychological factorsMajor depressive disorder, recurrent, in partial remissionAlcoh ol dependence, in remission 3 Natalia Brice. [address] [place] [address], [id number], [place]. tel:[phone] OFFICE/OUTPAT IENT VISIT, EST [facility], [address] [place] [address], [id number] , [place] [phone] [facility] Widespread pain (chief complaint) Type II diabetes mellitus with diabetic neuropathyChro amie pain syndromeSpinal stenosis, lumbar region without neurogenic claudicationPo stlaminectomy syndrome, not elsewhere classifiedLong term (current) use of opiate analgesic 3 Kira Bergeron. [address] [place] [address], [address], [id number], [place]. tel:[phone] Referring Provider: Anoop Emery [facility] [address] [place], [address]. tel:[phone] [facility], [address] [place] [address], [id number] , [place] tel:[phone] [facility] No Information 3 Kira Bergeron. [address] [facility] [address], [facility] [address], [place], [id number], [place]. tel:[phone] Referring Provider: Anoop Emery [facility] [address] [place], [address]. tel:[phone] OFFICE/OUTPAT IENT VISIT, [facility], [address] [place], [place], [id number] , [place] tel:[phone] [facility] [place] Widespread pain (chief complaint) Chronic pain syndromePostla minectomy syndrome, not elsewhere classifiedLong term (current) use of opiate analgesicEncou nter for therapeutic drug level monitoringSpin al stenosis, lumbar region without neurogenic claudicationTy pe II diabetes mellitus with diabetic neuropathy 3 Kira Elyssa. [address], [address], [place], [place], [id number], [place]. tel:[phone] Referring Provider: Anoop Emery, [facility] [address] [place], [address]. tel:[phone] Family History Family Member Type Diagnosis Age At Onset No Information Payers Payer name Insurance type Covered libertarian ID Authoriza nithin(s) Blue Cross [place] Complete BL [id number] Social History Type Description Quantity Date Captured Comments Alcohol Use Details Unknown Caffeine Use Details Unknown Tobacco Use Status No Information Smoking Status No Information Sex Female Chief Complaint And Reason For Visit No Information Reason For Referral Reason For Referral No Information Plan Of Treatment Date Type Action Status Goal Order Annual PT. Due on due Goal Creatinine. Due on due Goal SLUBBER RUNNER Scanned. Due on 023 due Goal ALT (SGPT). Due on due Goal UDT. Due on due Goal AST (SGOT). Due on due Goal DEVULCANIZER LOADER Paperwork. Due on due Goal OARS. Due on due Goal Weight. Due on d ue Goal Review Allergy List. Due on due Goal Medication Reconciliation. D ue on due Goal Unhealthy drug use screening . Due on due Goal PHQ-9. Due on du e Goal Hepatitis C screening. Due o n due Goal Zoster vaccine (1st). Due on due Goal FIT. Due on due Goal Update Social History. Due o n due Goal Height. Due on d ue Goal Lipid panel. Due on due Goal Tobacco Use. Due on due Goal FIT-DNA. Due on due Goal CT-Colonography. Due on due Goal CT-Colonography. Due on due Goal Unhealthy drug use screening . Due on due Goal Tobacco Use. Due on due Goal Zoster vaccine (1st). Due on due Goal FIT-DNA. Due on due Goal DEVULCANIZER LOADER Paperwork. Due on due Goal ALT (SGPT). Due on due Goal SLUBBER RUNNER Scanned. Due on due Goal Order Annual PT. Due on due Goal UDT. Due on due Goal Creatinine. Due on due Goal OARS. Due on due Goal AST (SGOT). Due on due Goal Update Social History. Due o n due Goal Medication Reconciliation. D ue on due Goal PHQ-9. Due on du e Goal Review Allergy List. Due on due Goal FIT. Due on due Goal Lipid panel. Due on due Goal Weight. Due on d ue Goal Height. Due on d ue Goal Hepatitis C screening. Due o n due Goal AST (SGOT). Due on due Goal SLUBBER RUNNER Scanned. Due on due Goal ALT (SGPT). Due on due Goal Order Annual PT. Due on due Goal OARS. Due on due Goal UDT. Due on due Goal Creatinine. Due on due Goal DEVULCANIZER LOADER Paperwork. Due on due Goal Medication Reconciliation. D ue on due Goal Lipid panel. Due on due Goal Review Allergy List. Due on due Goal FIT. Due on due Goal Hepatitis C screening. Due o n due Goal CT-Colonography. Due on due Goal Update Social History. Due o n due Goal Zoster vaccine (1st). Due on due Goal Tobacco Use. Due on due Goal PHQ-9. Due on du e Goal FIT-DNA. Due on due Goal Unhealthy drug use screening . Due on due Goal Weight. Due on d ue Goal Height. Due on d ue Goal ALT (SGPT). Due on due Goal OARS. Due on due Goal Order Annual PT. Due on due Goal DEVULCANIZER LOADER Paperwork. Due on due Goal Creatinine. Due on due Goal AST (SGOT). Due on due Goal FIT. Due on due Goal Review Allergy List. Due on due Goal Medication Reconciliation. D ue on due Goal PHQ-9. Due on du e Goal Zoster vaccine (1st). Due on due Goal Update Social History. Due o n due Goal Weight. Due on d ue Goal Unhealthy drug use screening . Due on due Goal CT-Colonography. Due on due Goal Height. Due on d ue Goal Lipid panel. Due on due Goal Hepatitis C screening. Due o n due Goal Tobacco Use. Due on due Goal FIT-DNA. Due on due Goal SLUBBER RUNNER Scanned. Due on due Goal UDT. Due on due Goal CT-Colonography. Due on due Goal Lipid panel. Due on due Goal FIT. Due on due Goal Hepatitis C screening. Due o n due Goal Review Allergy List. Due on due Goal Medication Reconciliation. D ue on due Goal Tobacco Use. Due on due Goal PHQ-9. Due on du e Goal Zoster vaccine (1st). Due on due Goal Weight. Due on d ue Goal Height. Due on d ue Goal FIT-DNA. Due on due Goal Unhealthy drug use screening . Due on due Goal Update Social History. Due o n due Goal SLUBBER RUNNER Scanned. Due on due Goal UDT. Due on due Goal ALT (SGPT). Due on due Goal OARS. Due on due Goal Order Annual PT. Due on due Goal DEVULCANIZER LOADER Paperwork. Due on due Goal Creatinine. Due on due Goal AST (SGOT). Due on due Goal UDT. Due on due Goal AST (SGOT). Due on due Goal Order Annual PT. Due on due Goal OARS. Due on due Goal ALT (SGPT). Due on due Goal DEVULCANIZER LOADER Paperwork. Due on due Goal Creatinine. Due on due Goal SLUBBER RUNNER Scanned. Due on due Goal FIT. Due on due Goal Medication Reconciliation. D ue on due Goal Hepatitis C screening. Due o n due Goal Zoster vaccine (1st). Due on due Goal Tobacco Use. Due on due Goal PHQ-9. Due on du e Goal CT-Colonography. Due on due Goal Height. Due on d ue Goal Lipid panel. Due on due Goal Update Social History. Due o n due Goal Weight. Due on d ue Goal Unhealthy drug use screening . Due on due Goal Review Allergy List. Due on due Goal FIT-DNA. Due on due Goal Update Social History. Due o n due Goal Lipid panel. Due on [address]-Colonography. Due on due Goal Zoster vaccine (1st). Due on due Goal Hepatitis C screening. Due o n due Goal Height. Due on d ue Goal Medication Reconciliation. D ue on due Goal Unhealthy drug use screening . Due on due Goal Tobacco Use. Due on 023 due Goal Review Allergy List. Due on due Goal PHQ-9. Due on du e Goal FIT-DNA. Due on due Goal Weight. Due on d ue Goal FIT. Due on due History Of Present Illness Encounter Date Complaint History Of Prese nt Illness Widespread pain Comments: Yaz presents virtually for SCS trial education. She is scheduled for a Medtronic SCS trial on 10/29/[address] Scherer. pain Patient is a 67 year old female presenting with complaints of chronic lower extremity foot pain that has been on going for around 15 years. she states the pain has increased jarad the past year and [place] made her even more limtied with mobility... She notes that she is currently experiencing severe pain located in bilateral feet. Her symptoms also include burning, tingling and sharp shooting pain. Her pain is constant but increases with activity. Her symptoms are increased with standing transfers walking and touch.. Symptoms are somewhat relieved with warmth, resting in her recliner with no weight on her feet. She does soak her feet but that no longer provides any pain relief. She has tried multiple different interventions, including PT in the past with lower extremity exercises. she states she does not tolerate any standing exercises but does do some AROM of her ankles and knees in the recliner. She notes that her current level of discomfort limits all of her daily activity. she does not leave the home unless it is for doctors visits. she has a CRISIS NURSE that comes in and helps her with bathing 3 x week. she has a lift chair to help with transfers ad walker with arm platforms to help her with walking around her home. Patient family states the patient has become more limited the past couple of years. Patient is hopeful the SCS will help her perform her daily activities with less limitation.This visit was conducted via synchronous telemedicine through an encrypted, real-time, interactive audio and video telecommunications to minimize risk and transmission of Covid-19. The distance site for this visit was the providers office, the originating site was the patients home. The patient and we understand the limitations of a telemedicine visit and the possibility of missing subtle findings on physical exam. The patient elected to proceed with the visit. Widespread pain Duration: chroni c. The client describes it as achy and tingling. It occurs persistently. The problem is fluctuating. Symptom is aggravated by running, standing, walking, housework, movement, stairs and twisting. Relieving factors include rest, heat, Rx Meds and changing positions. Pertinent negatives include diarrhea, fatigue, fever and incontinence (urinary). Comments: Yaz is a 67 y/o female here for initial follow up for low back, neck, and BL feet pain. Pain has gradually worsened over 20 years ago and started with BL knee pain. She also has a dx of fibromyalgia. Denies hx of low back surgery. Does report a hx of cervical foraminotomy late 2021 at [facility]. Has an upcoming appt at [facility] regarding her low back pain. Her worst pain is in her BL feet - ankle down, worse at the toes and soles of the feet. She denies any leg pain outside of foot pain. Pain started around the time she was dx with diabetes. Feels like pins and needles and pricking. Would like to move forward with an SCS trial. Has psych and PT eval scheduled.Of note, patient recently developed cellulitis in her L arm, possibly from a cat scratch. She had noticed swelling on her arm and was given cephalexin x10 days. Has been improving.The patient is currently managed on Lyrica 150mg TID, oxycodone 10mg HS, voltaren gel, ibuprofen 800mg TID, hydrochlorothiazide 25mg AM, and xarelto 10mg. Has been approved by her PCP to take it twice a day. Would like PCP to continue prescribing oxycodone to avoid monthly visits and be closer to home. No other concerns today. Widespread pain Severity level i s 6. Duration: chronic. The client describes it as achy, burning, stabbing, shooting and crippling. It occurs persistently. Symptom is aggravated by running, sitting, standing, walking, housework and movement. Relieving factors include heat, Rx Meds and laying down. Pertinent negatives include diarrhea, dyspnea, fever and incontinence (urinary). Comments: This i s my first evaluation of the patient. Some outside records from [facility] are available for review. Her daughter, Asha, participates in the discussion of care.Yaz is a 67 y/o female here for initial consult for low back, neck, and BL feet pain, referred by Dr. Anoop Emery, through [facility]. Pain has gradually worsened over 20 years ago and started with BL knee pain. Pain is primarily She describes pain as aching, burning, stabbing, crippling, and shooting and rates the pain severity 6/10. She also has a dx of fibromyalgia. Denies hx of low back surgery. Does report a hx of cervical foraminotomy late 2021 at [facility]. After surgery, she noticed improvement in mobility and ambulation x4 weeks. Unfortunately she developed an infection a month later and hasn't had relief since. A low back surgery was recommended due to stenosis at several levels of her lumbar spine, but patient did not want to have done. Hx of BL knee replacements, notes some increased L knee pain recentlyHer worst pain is in her BL feet - ankle down, worse at the toes and soles of the feet. Pain likely diabetic neuropathy as she denies any leg pain outside of foot pain. Pain started around the time she was dx with diabetes. Feels like pins and needles and pricking. Has followed with podiatry. No recent EMG. She has tried PT, career technical education teacher, and ESIs, without lasting relief. The patient has previously tried cymbalta, lidocaine patches, and CBD.The patient is currently managed on Lyrica 150mg TID, venlaxafine 225mg AM, oxycodone (once daily), voltaren gel, ibuprofen 800mg TID, hydrochlorothiazide 25mg AM, metformin 500mg (1000mg AM and PM), trazodone 2000mg HS, xarelto 10mg, and pramipexole 0.3275mg 5 tabs/day.Yaz is interested in all treatment options through [facility]. No other concerns today.Of note, patient has a hx of alcohol abuse and has been sober for 37 years. Functional Status Date Functional Assessmen t No Information Instructions Date Instruction Additional Infor mation No Information Assessments Type Assessment Date assessment Type 2 diabetes mellitus with di abetic neuropathy, unspecified impression Patient presents for lead pull s/p Medtronic Lumbar SCS trial on 10/29/22. No s/s of infection are present or reported. Leads pulled following onset of new right foot pain. See detailed wound assessment Patient Care Teams Name Effective Dates (start - stop) Status Members No Information
--- OUTSIDE RECORDS SUMMARY | 2023-08-13 15:16 | XMS_ITS | Continuity of Care Document ---
Author Organization [facility] Address [address] [place] [address] Care Team Providers Care Lab Scientist Name Role Phone Angus Cao CRNA Unavailable Unavailable Procedures Procedure Date Percutaneous Image guided neuromodulatio n or intra Advance Directives Directive Yes / No Effective Date File Name No Information Encounters Encounter Description Practice Location Reason(s) For Visit Diagnoses Date Provider Providers Copied on Encounter [facility], [address] [place], [place], [id number], [facility] No Information Nash Greco. [address] [place], [place], [id number] , . tel:[phone] Referring Provider: Davie Scherer, [address] [place], [address] . tel:[phone] Family History Family Member Type Diagnosis Age At Onset No Information Payers Payer name Insurance type Covered constitution party ID Authoriza tibrie(s) Blue Cross [place] Complete BL [id number] Social History Type Description Quantity Date Captured Comments Sex Female Smoking Status No Information Chief Complaint And Reason For Visit No Information Reason For Referral Reason For Referral No Information History Of Present Illness Encounter Date Complaint History Of Prese nt Illness No Information Functional Status Date Functional Assessmen t No Information Instructions Date Instruction Additional Infor mation No Information Assessments Type Assessment Date No Information Patient Care Teams Name Effective Dates (start - stop) Status Members No Information
--- OUTSIDE RECORDS SUMMARY | 2023-08-13 15:16 | XMS_ITS ---
Author Organization [facility] Address [address] [place] [address] Care Team Providers Care Showroom Sales Assistant Name Role Phone Unavailable Unavailable Unavailable Surgery Details Not on file Complications Check Surgery Details section. Procedure Estimated Blood Loss Check Surgery Details section. Procedure Findings Check Surgery Details section. Procedure Specimens Taken Check Surgery Details section.
--- OUTSIDE RECORDS SUMMARY | 2023-08-13 15:16 | XMS_ITS | Encounter Summary ---
Author Organization [facility] Address [address] [place] [address] Care Team Providers Care China And Silverware Salesperson Name Role Phone Elsewhere, Pcp Primary Care Provider Unavailabl e Encounter Details Date Type Department Care Team (Late st Contact Info) Description 08/04/2018 [facility] [address] [place] [address] Anoop Emery M.D. [address] [place] [id number] Other Dyspnea (Primary Dx) Social History Tobacco [...] Total Score: 5 04/29/19 17 10:10 AM CEILING INSTALLER documented as of this encounter Care Teams [employer] Silver[employer] Salesperson Relationship Specialty Start Date End Date Elsewhere, Pcp PCP - General Internal Medicine 07/16/22 documented as of this encounter
--- OUTSIDE RECORDS SUMMARY | 2023-08-13 15:16 | XMS_ITS | Encounter Summary ---
Author Organization [facility] Address [address] [place] [address] Care Team Providers Care Chief Nuclear Medicine Technologist Name Role Phone Elsewhere, Pcp Primary Care Provider Unavailabl e Reason for Referral * Outpatient (Routine) - Closed Specialty Diagnoses / Procedures Referred By Contact Referred To Contact Gastroenterology and Hepatology Diagnoses Constipation Rectocele Other Specified Disorders Of Muscle Anoop Emery M.D. [address] [place] [phone] [facility] Referral ID Status Reason Start Date Expiration Date Visits Re quested Visits Authorized [id number] Closed 09/02/2017 09/02/2018 1 1 Encounter Details Date Type Department Care Team (Late st Contact Info) Description 09/01/2017 [facility] [address] [place] [address] Anoop Emery M.D. [address] [place] [phone] Other Specified Disorders Of Muscle (Primary [...] Total Score: 5 04/29/19 17 10:10 AM FOREST FIRE FIGHTERS DISPATCHER documented as of this encounter Care Teams Chief Nuclear Medicine Technologist Relationship Specialty Start Date End Date Elsewhere, Pcp PCP - General Internal Medicine 07/16/22 documented as of this encounter
--- OUTSIDE RECORDS SUMMARY | 2023-08-13 15:16 | XMS_ITS | Continuity of Care Document ---
Author Organization [facility] Address [address] [place] [phone] Phone Care Team Providers Care Snow Removal Supervisor Name Role Phone [facility] Unavailable Unava ilable Procedures Procedure Date IMPLANT NEUROELECTRODES Implt neurostim elctr each IMPLANT NEUROELECTRODES Advance Directives Directive Yes / No Effective Date File Name No Information Encounters Encounter Description Practice Location Reason(s) For Visit Diagnoses Date Provider Providers Copied on Encounter [facility], [address] [place] [address], [id number], [place] tel:[phone] [facility] No Information [facility]. [address] [place] [address], [id number], . tel:[phone] Referring Provider: Davie Scherer, [address] [place], [address] . tel:[phone] Family History Family Member Type Diagnosis Age At Onset No Information Payers Payer name Insurance type Covered green party ID Authoriza tion(s) Blue Cross [place] Complete BL [id number] Social History Type Description Quantity Date [...]
--- OUTSIDE RECORDS SUMMARY | 2023-08-13 15:16 | XMS_ITS | Referral Summary ---
Author Organization [facility] Address [address] [place] [address] Care Team Providers Care Brand Strategist Name Role Phone Elsewhere, Pcp Primary Care Provider Unavailabl e Source Comments Patient records contain information from all sites at [facility]. For routine questions regarding patient records, call [phone] during business hours, M-F 8:00 AM - 5:00 PM Central Time. Record requests for emergency care only can be directed to [phone] at any time.[facility] Allergies Active Allergy Reactions Criticality Noted Date [...] Overview: Added automatically from request for surgery [id number] Pain Neuropathic 04/11/2020 Constipation 09/23/2017 Prolapse Vaginal [...] often do you attend chur ch or pentecostal services? Never 07/18/2022 Do you belong to any clubs o r organizations such as taoism groups, unions, fraternal [...] and heating? Not hard at all 07/18/2022 [facility] - Occupational Stress [...] slept in a skilled nursing (including now)? No 07/18/2022 Nutrition Answer Date [...] 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, PASSENGER SERVICE REPRESENTATIVE, ODILIA) 07/15/2020 Sex and Gender Information Value [...] on file Medical Devices Implanted Type Area New Product Trainer Device Identifier Shelf Expiration Date Model / Serial / Lot Self Drilling Cortex Screw 6mm Implanted:Qty: 5 on 12/24/2021 by Buster Herrera M.D. at [facility] Hardware e.g. pins/screws /rods N/A: Posterior Cervical Depuy Synthes 401.136. 99 / / Self Drilling Cortex Screw 8mm Implanted:Qty: 6 on 12/24/2021 by Buster Herrera M.D. at [facility] Hardware e.g. pins/screws /rods N/A: Posterior Cervical Depuy Synthes 401.13.8 99 / / Miniplate Double Bend 10mm Spacing Implanted:Qty: 3 on 12/24/2021 by Buster Herrera M.D. at [facility] Hardware e.g. pins/screws /rods N/A: Posterior Cervical Depuy Synthes 443.180 / / J J Sig Tib Poly Stab #4 8.0m - Gallo [id number] Implanted:Qty: 1 on 12/18/2011 Knee Implant Other/Legacy - See Implant Description [employer] Description:Device Manufactu rer - J & J [employer]. Body Location - Other. Right. Device Status Text - [id number] [id number]. J J Patella Rev Round 35m - Gallo [id number] Implanted:Qty: 1 on 12/18/2011 Knee Implant Other/Legacy - See Implant Description [employer] Description:Device Manufactu rer - J & J [employer]. Body Location - Other. Right. Device Status Text - [id number] [id number]. Sigma Post Stab.W Lug Fem Sz 5 Rt - Gallo [id number] Implanted:Qty: 1 on 12/18/2011 Knee Implant Other/Legacy - See Implant Description [employer] Description:Device Manufactu rer - J & J [employer]. Body Location - Other. Right. Device Status Text - [id number] [id number]. Cement Bone Small - Gallo [id number] Implanted:Qty: 1 on 12/18/2011 Misc Other Shanna [...] CDT Buster Herrera M.D. LAB BLOOD ADD-ON [facility] [address] [place] [address], [place] DTL [facility] [address] [place] [address] from Last 3 Months or Most Recently Relevant to Health Maintenance Advance Directives For more information, please contact: [phone] Documents on File Type Date Recorded Patient Director Medical Science Expl anation Advance Directives 12/17/2011 12:00 AM Leg acy document. See document viewer. * Full Code (Latest Code Status on File) Date Activated Date Inactivated Comments 12/24/2021 6:31 PM 12/28/2021 5:21 PM Question Answer Comments Full Code: Discussed Care Teams Brand Strategist Relationship Specialty Start Date End Date Elsewhere, Pcp PCP - General Internal Medicine 07/16/22
--- OUTSIDE RECORDS SUMMARY | 2023-08-13 15:17 | XMS_ITS | Continuity of Care Document ---
Author Organization [facility] Address [address] [place] [address] Phone Care Team Providers Care Key Punch Operator Name Role Phone Doug Mars MD Unavailable Unavailable Allergies, Adverse Reactions, Alerts Substance Reaction Status Criticality mupirocin Active No Information Medications Medication Instructions Dosage Effective Dates (start - stop) Status Comments XARELTO (unknown strength) Not Available - Active GLIPIZIDE (unknown strength) Not Available - Active AMOXICILLIN (unknown strength) Not Available - Active CARBAMAZEPINE (unknown strength) Not Available - Active CEPHALEXIN (unknown strength) Not Available - Active DOXYCYCLINE HYCLATE (unknown strength) Not Available - Active FEXOFENADINE HCL (unknown strength) Not Available - Active FLUCONAZOLE (unknown strength) Not Available - Active LORATADINE (unknown strength) Not Available - Active METFORMIN HCL (unknown strength) Not Available - Active HYDROCHLOROTHIAZIDE (unknown strength) Not Available - Active ONDANSETRON ODT (unknown strength) Not Available - Active OXYCODONE HCL (unknown strength) Not Available - Active PRAMIPEXOLE DIHYDROCHLORIDE (unknown strength) Not Available - Active PREGABALIN (unknown strength) Not Available - Active TRAZODONE HCL (unknown strength) Not Available - Active VALACYCLOVIR (unknown strength) Not Available - Active VENLAFAXINE HCL (unknown strength) Not Available - Active Procedures Procedure Date Office/Outpatient Visit,Est, Mod 2021 OFFICE/OUTPATIENT VISIT EST Phone Office/Outpatient Visit,New, Mod 2020 Office/outpatient visit,est, low 2005 Advance Directives Directive Yes / No Effective Date File Name No Information Encounters Encounter Description Practice Location Reason(s) For Visit Diagnoses Date Provider Providers Copied on Encounter [facility], [address], [place], [place], [id number], [place] tel:[phone] [facility] No Information 2 Jerad Camacho. [facility], [address], [place] [address], [place], [place], [id number], [place]. tel:[phone] Office/Outpa tient Visit,Est, Mod [facility], [address], [place], [place], [id number], [place] tel:[phone] [facility] Spinal stenosis, cervical regionOther forms of scoliosis, site unspecifiedS pondylolysis , site unspecifiedS kevin stenosis, lumbar region with neurogenic claudication 2 Jerad Camacho. [facility], [address], [place] [address], [place], [place], [id number], [place]. tel:[phone] Referring Provider: Anoop Ruiz, [facility] [address] [place], [address]. tel:[phone] OFFICE/OUTPA TIENT VISIT EST Phone [facility], [address], [place], [place], [id number], [place] tel:[phone] [facility] No Information 2 Jerad Camacho. [facility], [address] [place] [address], [place] [address], [place], [place], [id number], [place]. tel:[phone] Referring Provider: Anoop Ruiz, [facility] [address] [place], [address]. tel:[phone] Office/Outpa tient Visit,New, Mod [facility], [address], [place], [place], [id number], [place] tel:[phone] [facility] Spinal stenosis, cervical regionSpinal stenosis, lumbar region with neurogenic claudication Other spondylosis, lumbar region No Information Referring Provider: Anoop Ruiz, [facility] [address] [place], [address]. tel:[phone] Office/outpa tient visit,est, low Z [facility], [address], [place], [address], [place] tel:[phone] [facility] No Information 6 No Information Referring Provider: Gordon Boyd, [place] [address] [place], [address]. tel:[phone] Family History Family Member Type Diagnosis Age At Onset No Information Payers Payer name Insurance type Covered green party ID Mele weller(s) [facility] [id number] Medicare [facility] [id number] Social History Type Description Quantity Date Captured [...]
[2023-08-13 16:09] LABS: Vitamin D 25 Hydroxy* 38 ng/mL (30-80)
== END 2023-08-13 15:11 | disposition home or self-care (01) ==
LOC: NPINS 15:10
PROVIDERS: PCP Family Medicine; Visit Provider Psychiatry & Neurology Psychiatry
DX: F33.9 Major depressive disorder, recurrent, unspecified (principal)
CPT/HCPCS: 82306

== ENCOUNTER 2023-09-30 12:49 | Outpatient (CLI) | payer MEDICARE, BC, SELFPAY ==
--- NOTE | 2023-09-30 13:00 | CRLHL7_ITS ---
For Patients: As a result of the Cures Act, medical imaging exams and procedure reports are released immediately into your electronic medical record. You may view this report before your referring provider. If you have questions, please contact your health care provider. INDICATION: Thyroid nodule COMPARISON: CT 01/13/2022 TECHNIQUE: Pan scale and color Doppler images were acquired of the thyroid gland. FINDINGS: Isthmus measures 1.5 millimeter. Solid and cystic nodule left thyroid lobe measures 8 x 6 x 8 millimeters, TR 3. Solid hypoechoic nodule left thyroid lobe measures 9 x 5 x 8 millimeters, TR 4. Solid and cystic nodule left thyroid lobe measures 7 x 7 x 8 millimeters, TR 3. Solid and cystic nodule right thyroid lobe measures 11 x 10 x 14 millimeters, TR 3. Mostly solid nodule right thyroid lobe measures 19 x 17 x 19 millimeters, TR 4. Additional solid nodule right thyroid lobe measures 16 x 12 x 12 millimeters, TR 4. The right lobe measures 6.4 x 2.6 x 2.2 cm and the left lobe measures 5.7 x 1.7 x 1.3 cm in size. The color Doppler images demonstrate normal vascularity. There is no evidence of cervical lymphadenopathy or parathyroid mass. IMPRESSION: 1.6 cm and 1.9 cm TR 4 nodules right thyroid lobe. FNA recommended. Dictated by Enrico Ledezma MD @ 10/01/2023 11:13:38 AM (Electronically Signed)
== END 2023-09-30 12:50 | disposition home or self-care (01) ==
LOC: US 12:49
PROVIDERS: PCP Family Medicine; Visit Provider Surgery
DX: E04.1 Nontoxic single thyroid nodule (principal)
CPT/HCPCS: 76536

== ENCOUNTER 2023-10-06 13:40 | Outpatient (CLI) | payer MEDICARE, BC, SELFPAY ==
--- OUTSIDE RECORDS SUMMARY | 2023-10-06 13:44 | XMS_ITS | Clinical Summary ---
Author Organization [facility] Address [place], [place] [address] Care Team Providers Care Fisher Trawl Line Name Role Phone Anoop Emery MD Primary Care Provider [phone] Allergies Active Allergy Reactions Criticality Noted Date [...] nasal solution (FLONASE)Indicati ons:Seasonal allergies Inhale 1 Round Top to both nostrils two times daily. 12/28/2021 [...] daily if needed. 12/28/2021 Active fish,bora,flax oils-om3,6,9no1 ([place] 3-6-9) 1,200 mg cap Take 1 capsule. [...] ANTI HCV (01/07/2019 1:40 PM CDT) Pathologist [facility] HEPATITIS C ANTIBODY Non-React shandra Non-React shandra 01/07/2019 8:28 PM CDT [facility] Comment:Antibodies to HCV no t detected; does not exclude the possibility of exposure to HCV. Blood BLOOD SPECIMEN / Unknown Venipuncture / Unknown 01/07/2019 1:40 PM CDT 01/07/2019 1:47 PM CDT Thalia COMBS [facility] [address] [place] [address], [place] * (ABNORMAL) LIPID PANEL W REFLEX MEASURED LDL (12/08/2018 4:10 PM CDT) CHOLESTEROL,TOTAL 213(H) 100 - 199 mg/dL 12/08/2018 8:47 PM CDT [facility] TRIGLYCERIDES 249(H) <150 mg/dL 12/08/2018 8:47 PM CDT [facility] HDL CHOLESTEROL 49 >40 mg/dL 9 8:47 PM CDT [facility] NON-HDL CHOLESTEROL 164(H) <145 mg/dl 12/08/2018 8:47 PM CDT [facility] CHOL/HDL RATIO 4.35 <4.50 12/08/2018 8:47 PM CDT [email or web address] LDL CHOLESTEROL 114 <=130 mg/dL 12/08/2018 8:47 PM CDT [email or web address] PROVIDER ORDERED STATUS RANDOM 12/08/2018 8:47 PM CDT [facility] Blood BLOOD SPECIMEN / Unknown Venipuncture / Unknown 12/08/2018 4:10 PM CDT 12/08/2018 4:37 PM CDT Keon Hong MD CHEMISTRY [email or web address] [address] [place] [address], from Last 3 Months or Most Recently Relevant to Health Maintenance Advance Directives * Full Code (Latest Code Status on File) Date Activated Date Inactivated Comments 2005 1:25 PM 05/17/2005 7:54 PM * Full Code Date Activated Date Inactivated Comments 2005 9:32 AM 2005 1:25 PM Care Teams Fisher Trawl Line Relationship Specialty Start Date End Date Anoop Emery MD [address] [place] [address] PCP - General Family Practice 04/09/21
--- OUTSIDE RECORDS SUMMARY | 2023-10-06 13:44 | XMS_ITS | Referral Summary ---
Author Organization [facility] Address [address] [place] [address] Care Team Providers Care Engraving Supervisor Name Role Phone Elsewhere, Pcp Primary Care Provider Unavailabl e Source Comments Patient records contain information from all sites at [facility]. For routine questions regarding patient records, call [phone] during business hours, M-F 8:00 AM - 5:00 PM Central Time. Record requests for emergency care only can be directed to [phone] at any time.[facility] Allergies [...] 12/18/2021 Anticoagulant Therapy 12/18/2021 Myelopathy Cervical 11/14/2021 Overview (11/14/2021): Added automatically from request for surgery [id number] Pain Neuropathic 04/11/2020 Constipation 09/23/2017 Prolapse Vaginal [...] often do you attend chur ch or rastafarian services? Never 07/18/2022 Do you belong to any clubs o r organizations such as episcopal groups, unions, fraternal [...] and heating? Not hard at all 07/18/2022 [facility] - Occupational Stress Questionnaire Answer Date [...] or slept in a intermediate (including now)? No 07/18/2022 Nutrition Answer Date [...] 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, MIDWIFE PRACTITIONER, ODILIA) 07/15/2020 Sex and Gender Information Value [...] on file Medical Devices Implanted Type Area Gas Operation Manager Device Identifier Shelf Expiration Date Model / Serial / Lot Self Drilling Cortex Screw 6mm Implanted:Qty: 5 on 12/24/2021 by Buster Herrera M.D. at [facility] Hardware e.g. pins/screws /rods N/A: Posterior Cervical Depuy Synthes 401.136. 99 / / Self Drilling Cortex Screw 8mm Implanted:Qty: 6 on 12/24/2021 by Buster Herrera M.D. at [facility] Hardware e.g. pins/screws /rods N/A: Posterior Cervical Depuy Synthes 401.13.8 99 / / Miniplate Double Bend 10mm Spacing Implanted:Qty: 3 on 12/24/2021 by Buster Herrera M.D. at [facility] Hardware e.g. pins/screws /rods N/A: Posterior Cervical Depuy Synthes 443.180 / / J J Sig Tib Poly Stab #4 8.0m - Gallo [id number] Implanted:Qty: 1 on 12/18/2011 Knee Implant Other/Legacy - See Implant Description [employer] Description:Device Manufactu rer - J [employer] J [employer]. Body Location - Other. Right. Device Status Text - [id number] [id number]. J J Patella Rev Round 35m - Gallo [id number] Implanted:Qty: 1 on 12/18/2011 Knee Implant Other/Legacy - See Implant Description [employer] Description:Device Manufactu rer - J [employer]. Body Location - Other. Right. Device Status Text - [id number] [id number]. Sigma Post Stab.W Lug Fem Sz 5 Rt - Gallo [id number] Implanted:Qty: 1 on 12/18/2011 Knee Implant Other/Legacy - See Implant Description [employer] Description:Device Manufactu rer - J [employer]. Body Location - Other. Right. Device Status Text - [id number] [id number]. Cement Bone Small - Gallo [id number] Implanted:Qty: 1 on 12/18/2011 Misc Other [place] Description:Device Manufactu rer - Shanna Mariama.. Device Status Text - [id number]. Cement Bone Large - Gallo [id number] Implanted:Qty: 1 on 12/18/2011 [facility] Other [place] Description:Device Manufactu rer - [place] Mari[employer].. Device Status Text - [id number]-[id number]. Procedures Procedure Name Priority Date/Time Associated Diagnosis Comments BASIC METABOLIC PANEL, S/P Routine 12/24/2021 8:41 PM CDT SODIUM, B STAT 12/24/2021 2:57 PM CDT HEMOGLOBIN A1C, B Routine 12/18/2021 12: 28 PM CDT Preoperative Exam from Last 3 Months or Most Recently Relevant to Health Maintenance Results * (ABNORMAL) Basic Metabolic Panel (12/24/2021 8:41 PM CDT) Pathologist [facility] Potassium, S 4.1 3.6 - 5.2 mmol/L 12/24/2021 10:01 PM CDT DTL Sodium, S 138 135 - 145 mmol/L 12/24/2021 10:01 PM CDT DTL Chloride, S 97(L) 98 - 107 mmol/L 12/24/2021 10:01 PM CDT DTL Bicarbonate, S 28 22 - 29 mmol/L 12/24/2021 10:01 PM CDT DTL Anion Gap 13 7 - 15 12/24/2021 10:01 PM CDT DTL BUN (Blood Urea Nitrogen), S 10 6 - 21 mg/dL 12/24/2021 10:01 PM CDT DTL Creatinine 0.69 0.59 - 1.04 mg/dL 12/24/2021 10:01 PM CDT DTL Estimated GFR (eGFR) >90 >=60 mL/min/BSA 12/24/2021 10:01 PM CDT DTL Comment: Estimated GFR calculated using the 2020 CKD_EPI creatinine equation. Calcium, Total, S 9.1 8.8 - 10.2 mg/dL 12/24/2021 10:01 PM CDT DTL Glucose, S 152(H) 70 - 140 mg/dL 12/24/2021 10:01 PM CDT DTL Blood (Blood, Venous) 12/24/2021 8:41 PM CDT 12/24/2021 9:44 PM CDT Abdon Gill M.D. LAB BLOOD ADD-ON [facility] [address] [place] [address], [facility] [address] [place] [address] * Sodium, B (12/24/2021 2:57 PM CDT) Sodium, B 135 135 - 145 mmol/L 12/24/2021 2:58 PM CDT [facility] Blood (Blood, Arterial Line) 12/24/2021 2:57 PM CDT 12/24/2021 2:57 PM CDT [place] Davis M.D. LAB BLOOD NON ADD- ON Performing Organization Address [facility] Co de Phone Number [facility] [address] [place] [address], [facility] [address] [place] [address] * (ABNORMAL) Hemoglobin A1c (12/18/2021 12:28 PM [...] M.D. LAB BLOOD ADD-ON Performing Organization Address City/[facility]/ZIP Co de Phone Number [facility] [address] [place] [address], [facility] [address] [place] [address] from Last 3 Months or Most Recently Relevant to Health Maintenance Advance Directives For more information, please contact: [phone] Documents on File Type Date Recorded Patient Financial Assistance Specialist Expl anation Advance Directives 12/17/2011 12:00 AM Leg acy document. See document viewer. * Full Code (Latest Code Status on File) Date Activated Date Inactivated Comments 12/24/2021 6:31 PM 12/28/2021 5:21 PM Question Answer Comments Full Code: Discussed Care Teams Engraving Supervisor Relationship Specialty Start Date End Date Elsewhere, Pcp PCP - General Internal Medicine 07/16/22
--- OUTSIDE RECORDS SUMMARY | 2023-10-06 13:44 | XMS_ITS ---
Author Organization [facility] Address [address] [place] [address] Care Team Providers Care Local Delivery Truck Driver Name Role Phone Unavailable Unavailable Unavailable Surgery Details Not on file Complications Check Surgery Details section. Procedure Estimated Blood Loss Check Surgery Details section. Procedure Findings Check Surgery Details section. Procedure Specimens Taken Check Surgery Details section.
--- OUTSIDE RECORDS SUMMARY | 2023-10-06 13:44 | XMS_ITS | Encounter Summary ---
Author Organization [facility] Address [address] [place] [address] Care Team Providers Care Vending Route Servicer Name Role Phone Denise Harris MD Primary Care Provider Anoop Emery MD Unavailable [phone] Inez Peck MD Unavailable [phone] Inez Peck MD Unavailable [phone] Encounter Details Date Type Department Care Team (Late st Contact Info) Description 10/31/2020 MyC Medical Advice [facility] [address] [place] [address] Inez Peck MD [address] [facility] [address] [place] [address] Social History Tobacco Use Types [...] on filedocumented in this encounter Care Teams Vending Route Servicer Relationship Specialty Start Date End Date Denise Harris MD [address] [address] PCP - General Internal Medicine 01/17/15 Anoop Emery MD [facility] [address] [place] [address] Referring Physician Family Medicine 09/15/20 Inez Peck MD [address] [place] [address] Urology 09/15/20 Inez Peck MD [address] [place] [id number] Assigned Surgical Provider 11/12/20 05/10/22 documented as of this encounter
--- OUTSIDE RECORDS SUMMARY | 2023-10-06 13:44 | XMS_ITS | Clinical Summary ---
Author Organization [facility] Address [address] [address] Care Team Providers Care Process Expert Name Role Phone Thalia Barron PA-C Primary Care Provider Un available Source Comments You are receiving this document as you are listed as the primary care provider,follow-up provider, or the patient has been referred to you for consultation.This is in compliance with the Medicare and[facility] Hospital[facility] EHR Incentive Program,which states Providers who transition their patient to another setting of careor provider of care or refers their patient to another provider of care shouldprovide summary care record for each transition of care or referral. ISBX Allergies Active Allergy Reactions Criticality Noted Date [...] Instr:for eczema on hand 15 04/26/2009 Active [place]-3 Fatty Acids ([facility] FISH OIL) 1200 MG [...] 12 04/26/2009 Active nystatin-triamcinolo ne (AKA MYCOLOG-II) 586777-4.1 UNIT/GM-% cream Apply 1 Applicatorful topically 3 [...] Comments Blood Pressure 118/80 05/01/2009 7:20 AM BREEDER HEN SERVICE TECHNICIAN C: Dynamap Pulse 102 05/01/2009 7:20 AM BREEDER HEN SERVICE TECHNICIAN Temperature 36.7 ??C (98.1 ??F) 05/01/2009 7 :20 AM BREEDER HEN SERVICE TECHNICIAN ORAL C: 98.1 F Respiratory Rate 16 05/01/2009 7:20 AM BREEDER HEN SERVICE TECHNICIAN Oxygen Saturation 96% 05/01/2009 7:2 1 AM BREEDER HEN SERVICE TECHNICIAN Inhaled Oxygen Concentration - - Weight - [...] - 2022- season) 2022 05/19/2020 Influenza (#1) 2023 01/07/2019, 12/15, 12/30/2017, Additional history exists DTaP/Tdap/Td [...] age to complete this topic Care Teams Process Expert Relationship Specialty Start Date End Date Thalia Barron PA-C PCP - General Physician Board Certified Music Therapist 10/06/18
--- OUTSIDE RECORDS SUMMARY | 2023-10-06 13:44 | XMS_ITS | Continuity of Care Document ---
Author Organization [facility] enter Address [address] [place] [address] Phone Care Team Providers Care Motor Teacher Name Role Phone [facility] Unavailable Unava ilable Procedures Procedure Date IMPLANT NEUROELECTRODES Implt neurostim elctr each IMPLANT NEUROELECTRODES Advance Directives Directive Yes / No Effective Date File Name No Information Encounters Encounter Description Practice Location Reason(s) For Visit Diagnoses Date Provider Providers Copied on Encounter [facility], [address] [place] [address], [id number], [place] tel:[phone] [facility] No Information [facility]. [address] [place] [address], [id number], . tel:[phone] Referring Provider: Davie Scherer, [address] [place], [address] . tel:[phone] Family History Family Member Type Diagnosis Age At Onset No Information Payers Payer name Insurance type Covered constitution party ID Authoriza tion(s) Blue Cross [place] Complete BL [id number] Social History Type Description Quantity Date [...]
--- OUTSIDE RECORDS SUMMARY | 2023-10-06 13:44 | XMS_ITS | Continuity of Care Document ---
Author Organization [facility] Pain Cli amie Address [address] [facility] [place] [address] Phone Care Team Providers Care Transport Coordinator Name Role Phone Logan Hart Unavailable Unavailable [...] - No Longer Active Procedures Procedure Date [facility] Lead Pull Satellite No Charge For Visit [...] Diagnoses Date Provider Providers Copied on Encounter [facility], [address] [place] [address], [id number] , [place] tel:[phone] [facility] Pain [facility] Type 2 diabetes mellitus with diabetic neuropathy, unspecified 3 Yoon Ford. [address] [facility] 11 [facility] [address], [place], [id number], [place]. tel:[phone] Referring Provider: Anoop Emery, [address], [address]. tel:[phone] [facility], [address] [place] [address], [id number] , [place] tel:[phone] [facility] Type 2 diabetes mellitus with diabetic neuropathy, unspecified 3 Niesha Broderick. [address] [place], [place], [id number], [place]. tel:[phone] Referring Provider: Anoop Emery [facility] [address] [place], [address]. tel:[phone] OFFICE VISIT, EST TELEMEDICINE [facility] Pain [facility], [address] [place] [address], [id number] , [place] tel:[phone] [facility] Pain [facility] Widespread pain (chief complaint) Type II diabetes mellitus with diabetic neuropathy 3 Kira Bergeron. [address] [facility] 11, [facility] [address], [place], [id number], [place]. tel:[phone] [facility], [address] [place] [address], [id number] , [place] [phone] [facility] [place] pain (chief complaint) Type II diabetes mellitus with diabetic neuropathy 3 Lalitha Sandoval. [address] [place], [place], [id number], [place]. [phone] Psych Dx Eval [facility], [address] [place] [address], [id number] , [place] tel:[phone] Telehealth Pain disorder with related psychological factorsMajor depressive disorder, recurrent, in partial remissionAlcoh ol dependence, in remission 3 Natalia Brice. [address] [place] [address], [id number], [place]. tel:[phone] OFFICE/OUTPAT IENT VISIT, EST [facility], [address] [place] [address], [id number] , [place] [phone] [facility] Pain [facility] Widespread pain (chief complaint) Type II diabetes mellitus with diabetic neuropathyChro amie pain syndromeSpinal stenosis, lumbar region without neurogenic claudicationPo stlaminectomy syndrome, not elsewhere classifiedLong term (current) use of opiate analgesic 3 Kira Bergeron. [address] [place] [address], [address], [id number], [place]. tel:[phone] Referring Provider: Anoop Emery [facility] [address] [place], [address]. tel:[phone] [facility], [address] [place] [address], [id number] , [place] tel:[phone] [facility] No Information 3 Kira Bergeron. [address] [facility] 11, [facility] [address], [place], [id number], [place]. tel:[phone] Referring Provider: Anoop Emery [facility] [address] [place], [address]. tel:[phone] OFFICE/OUTPAT IENT VISIT, [facility], [address] [place], [place], [id number] , [place] tel:[phone] [facility] [place] Widespread pain (chief complaint) Chronic pain syndromePostla minectomy syndrome, not elsewhere classifiedLong term (current) use of opiate analgesicEncou nter for therapeutic drug level monitoringSpin al stenosis, lumbar region without neurogenic claudicationTy pe II diabetes mellitus with diabetic neuropathy 3 Kira Elyssa. [address] [facility] [address] [facility] [address], [address], [place], [place], [id number], [place]. tel:[phone] Referring Provider: Anoop Emery, [facility] [address] [place], [address]. tel:[phone] Family History Family Member Type Diagnosis Age At Onset No Information Payers Payer name Insurance type Covered alliance party ID Authorlucretiaa nithin(s) Blue Cross Circle Complete BL [id number] Social History Type Description Quantity Date Captured Comments Alcohol Use Details Unknown Caffeine Use Details Unknown Tobacco Use Status No Information Smoking Status No Information Sex Female Chief Complaint And Reason For Visit No Information Reason For Referral Reason For Referral No Information Plan Of Treatment Date Type Action Status Goal Creatinine. Due on due Goal Medication Reconciliation. D [...] due Goal CT-Colonography. Due on due Goal PERFORMANCE IMPROVEMENT MANAGER Scanned. Due on due Goal ALT (SGPT). Due on due Goal UDT. Due on due Goal AST (SGOT). Due on due Goal DIGITAL MARKETING ASSOCIATE Paperwork. Due on due Goal OARS. Due on due Goal Weight. Due on d ue Goal Order Annual PT. Due on due Goal Review Allergy List. Due on due Goal PERFORMANCE IMPROVEMENT MANAGER Scanned. Due on due Goal Order Annual [...] due Goal FIT-DNA. Due on due Goal DIGITAL MARKETING ASSOCIATE Paperwork. Due on due Goal ALT (SGPT). Due on due Goal CT-Colonography. Due on due Goal Update Social History. Due o n due Goal AST (SGOT). Due on due Goal PERFORMANCE IMPROVEMENT MANAGER Scanned. Due on due Goal ALT (SGPT). Due on due Goal Order Annual PT. Due on due Goal OARS. Due on due Goal UDT. Due on due Goal Creatinine. Due on due Goal DIGITAL MARKETING ASSOCIATE Paperwork. Due on due Goal Medication Reconciliation. D ue on due Goal Lipid panel. Due on due Goal Review Allergy List. Due on due Goal FIT. Due on due Goal Hepatitis C screening. Due o n due Goal Height. Due on d ue Goal Zoster vaccine (1st). Due on due Goal Tobacco Use. Due on due Goal PHQ-9. Due on du e Goal FIT-DNA. Due on due Goal Unhealthy drug use screening . Due on due Goal Weight. Due on d ue Goal OARS. Due on due Goal Order Annual PT. Due on due Goal DIGITAL MARKETING ASSOCIATE Paperwork. Due on due Goal Creatinine. Due on due Goal AST (SGOT). Due on due Goal FIT. Due on due Goal Review Allergy List. Due on due Goal Medication Reconciliation. D ue on due Goal ALT (SGPT). Due on due Goal PHQ-9. Due on [...] due Goal FIT-DNA. Due on due Goal PERFORMANCE IMPROVEMENT MANAGER Scanned. Due on due Goal UDT. Due on due Goal Creatinine. Due on due Goal AST (SGOT). Due on due Goal DIGITAL MARKETING ASSOCIATE Paperwork. Due on due Goal Order Annual PT. Due on due Goal OARS. Due on due Goal ALT (SGPT). Due on due Goal UDT. Due on due Goal PERFORMANCE IMPROVEMENT MANAGER Scanned. Due on due Goal Update Social History. Due o n due Goal Unhealthy drug use screening . Due on due Goal FIT-DNA. Due on due Goal Height. Due on d ue Goal Weight. Due on d ue Goal Zoster vaccine (1st). Due on due Goal PHQ-9. Due on du e Goal Tobacco Use. Due on due Goal Medication Reconciliation. D ue on due Goal Review Allergy List. Due on due Goal Hepatitis C screening. Due o n due Goal FIT. Due on due Goal Lipid panel. Due on due Goal CT-Colonography. Due on due Goal UDT. Due on due Goal AST (SGOT). Due on due Goal Order Annual PT. Due on due Goal OARS. Due on due Goal ALT (SGPT). Due on due Goal DIGITAL MARKETING ASSOCIATE Paperwork. Due on due Goal Creatinine. Due on due Goal PERFORMANCE IMPROVEMENT MANAGER Scanned. Due on due Goal FIT. Due [...] is for doctors visits. she has a STITCHER AROUND that comes in and helps her with [...] hx of cervical foraminotomy late 2021 at [facility]. Has an upcoming appt at [facility] regarding her low back pain. Her worst [...] of the patient. Some outside records from [facility] are available for review. Her daughter, Asha, participates in the discussion of care.Yaz is a 67 y/o female here for initial consult for low back, neck, and BL feet pain, referred by Dr. Anoop Emery, through [facility]. Pain has gradually worsened over 20 years ago and started with BL knee pain. Pain is primarily She describes pain as aching, burning, stabbing, crippling, and shooting and rates the pain severity 6/10. She also has a dx of fibromyalgia. Denies hx of low back surgery. Does report a hx of cervical foraminotomy late 2021 at [facility]. After surgery, she noticed improvement in mobility [...] No recent EMG. She has tried PT, director critical care, and ESIs, without lasting relief. The patient has previously tried cymbalta, lidocaine patches, and CBD.The patient is currently managed on Lyrica 150mg TID, venlaxafine 225mg AM, oxycodone (once daily), voltaren gel, ibuprofen 800mg TID, hydrochlorothiazide 25mg AM, metformin 500mg (1000mg AM and PM), trazodone 2000mg HS, xarelto 10mg, and pramipexole 0.3275mg 5 tabs/day.Yaz is interested in all treatment options through [facility]. No other concerns today.Of note, patient has [...]
--- OUTSIDE RECORDS SUMMARY | 2023-10-06 13:44 | XMS_ITS | Encounter Summary ---
Author Organization [place] Address [address] [place] [address] Care Team Providers Care Supervisor Boiler Repair Name Role Phone Denise Harris MD Primary Care Provider Anoop Emery MD Unavailable [phone] Inez Peck See Luis Antonio GARZA Unavailable [phone] Inez Peck See Luis Antonio GARZA Unavailable [phone] Encounter Details Date Type Department Care Team (Late st Contact Info) Description 04/09/2018 [facility] [place] [address] Jeanine Ford DPJose Roberto, Podiatry/Foot and Ankle Surgery [address] [address] Foot pain, bilateral (Primary Dx) Social History [...] process of being sent. Geri Taveras, RN GER BUSINESS INTELLIGENCE documented in this encounter Plan of Treatment Not on file documented as of this encounter Visit Diagnoses Diagnosis Foot pain, bilateral- Primary documented in this encounter Care Teams Supervisor Boiler Repair Relationship Specialty Start Date End Date Denise Harris MD [address] [address] PCP - General Internal Medicine 01/17/15 Anoop Emery MD [address] [address] Referring Physician Family Medicine 09/15/20 Inez Peck MD [address] [place] [address] Urology 09/15/20 Inez Peck MD [address] [place] [address] Assigned Surgical Provider 11/12/20 05/10/22 documented as of this encounter
--- OUTSIDE RECORDS SUMMARY | 2023-10-06 13:44 | XMS_ITS | Clinical Summary ---
Author Organization [place] Address [address] [place] [address] Care Team Providers Care Histotechnician Name Role Phone Denise Harris MD Primary Care Provider Anoop Emery MD Unavailable [phone] Inez Peck MD Unavailable [phone] Allergies Active Allergy Reactions Criticality Noted Date [...] mg by mouth 3 times daily Active [place]-3 Fatty Acids (OMEGA 3 PO) Take by [...] PHQ-9 11/02/2021 11/02/2020 COVID-19 Vaccine (2 - 2022-24 season) 2022 05/19/2020 BMP 01/03/2023 01/03/2022 INFLUENZA VACCINE (#1) 2023 9, 01/07/2019, 12/30/2017, Additional history exists DTAP/TDAP/TD IMMUNIZATION [...] and gender (Jeni et al., NEJ, DOI: 10.1056/[id number]) Blood STRUCTURE OF LEFT UPPER LIMB / Unknown Venipuncture / Unknown 01/03/2022 10:12 AM CDT 01/03/2022 5:44 PM CDT Emi Wyatt DIGITAL PHOTOGRAPHIC PRINTER LAB - BLOOD ORDERABL ES U [facility] [place] [facility] [address] [facility] [address], [address] [place] [address], [facility] [phone] from Last 3 Months or Most Recently Relevant to Health Maintenance Care Teams Histotechnician Relationship Specialty Start Date End Date Denise Harris MD [facility] [address] [place] [address] PCP - General Internal Medicine 01/17/15 Anoop Emery MD [facility] [address] [place] [address] Referring Physician Family Medicine 09/15/20 Inez Peck MD [address] [place] [address] [address] [place] [address] Urology 09/15/20
--- OUTSIDE RECORDS SUMMARY | 2023-10-06 13:44 | XMS_ITS | Clinical Summary ---
Author Organization [facility] Address [address] [place] [address] Care Team Providers Care Strip Picker Name Role Phone Elsewhere, Pcp Primary Care Provider Unavailabl e Source Comments Patient records contain information from all sites at [facility]. For routine questions regarding patient records, call [phone] during business hours, M-F 8:00 AM - 5:00 PM Central Time. Record requests for emergency care only can be directed to [phone] at any time.[facility] Allergies Active Allergy Reactions Criticality Noted [...] (11/14/2021): Added automatically from request for surgery [id number] Pain Neuropathic 04/11/2020 Constipation 09/23/2017 Prolapse Vaginal [...] Name Status Comments Brother True Father Sunil Ldeesma Prenbrooklynn Mother Swathi pace Paternal Grandmother Sintia Pace [...] often do you attend chur ch or yazidism services? Never 07/18/2022 Do you belong to any clubs o r organizations such as anglican groups, unions, fraternal [...] and heating? Not hard at all 07/18/2022 [facility] [place] of Occupat ional Health - Occupational Stress [...] slept in a group home (including now)? No 07/18/2022 Nutrition Answer Date [...] 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, [employer]OLF [employer]UB WEIGHER, ODILIA) 07/15/2020 Sex and Gender Information Value [...] 2023 12/26/2022, 12/11/2021, 02/07/2021, Additional history exists Influenza Vaccine (#1) 2023 3, 12/20/2021, 01/03/2021, Additional history exists DTaP,Tdap,and Td Vaccines (2 - Td or Tdap) 06/21/2024 06/21/2014, 07/23/2006, 07/23/2006 Cervical Cancer Screening Discontinued 2016 (Performed elsewhere), 07/16/2011 (Performed elsewhere) Pneumococcal vaccine (65+ years) Completed 07/03/19, 09/22/2019 Bone Density Scan (Osteoporo sis Screen) Discontinued 12/18/2021 Medical Devices Implanted Type Area Pan Shaker Device Identifier Shelf Expiration Date Model / Serial / Lot Self Drilling Cortex Screw 6mm Implanted:Qty: 5 on 12/24/2021 by Buster Herrera M.D. at [facility] Hardware e.g. pins/screws /rods N/A: Posterior Cervical Depuy Synthes 401.136. 99 / / Self Drilling Cortex Screw 8mm Implanted:Qty: 6 on 12/24/2021 by Buster Herrera M.D. at [facility] Hardware e.g. pins/screws /rods N/A: Posterior Cervical Depuy Synthes 401.13.8 99 / / Miniplate Double Bend 10mm Spacing Implanted:Qty: 3 on 12/24/2021 by Buster Herrera M.D. at [facility] Hardware e.g. pins/screws /rods N/A: Posterior Cervical Depuy Synthes 443.180 / / J J Sig Tib Poly Stab #4 8.0m - Gallo [id number] Implanted:Qty: 1 on 12/18/2011 Knee Implant Other/Legacy - See Implant Description Single Cell Technology & [employer] Description:Device Manufactu [facility] - [employer]. Body Location - Other. Right. Device Status Text - [id number] [id number]. J J Patella Rev Round 35m - [place]o [id number] Implanted:Qty: 1 on 12/18/2011 Knee Implant Other/Legacy - See Implant Description [employer] Description:Device Manufactu rer - [employer]. Body Location - Other. Right. Device Status Text - KNEE [id number]. Sigma Post Stab.W Lug Fem Sz 5 Rt - Gallo [id number] Implanted:Qty: 1 on 12/18/2011 Knee Implant Other/Legacy - See Implant Description [employer] Description:Device Manufactu rer - [employer]. Body Location - Other. Right. Device Status Text - [id number] [id number]. Cement Bone Small - Gallo [id number] Implanted:Qty: 1 on 12/18/2011 Misc Other Shanna Description:Device Manufactu rer - Shanna Mariama.. Device Status Text - [id number]. Cement Bone Large - Gallo [id number] Implanted:Qty: 1 on 12/18/2011 Misc Other [place] Description:Device Manufactu rer - Shanna Mariama.. Device [...] Basic Metabolic Panel (12/24/2021 8:41 PM CDT) [facility] Potassium, S 4.1 3.6 - 5.2 mmol/L [...] CDT Abdon Gill M.D. LAB BLOOD ADD-ON [facility] [address] [place] [address], [facility] DTL [facility] [address] [place] [address] * Sodium, B (12/24/2021 2:57 PM CDT) Pathologist [facility] Sodium, B 135 135 - 145 mmol/L 12/24/2021 2:58 PM CDT [facility] Blood (Blood, Arterial Line) 12/24/2021 2:57 PM CDT 12/24/2021 2:57 PM CDT Milton Davis M.D. LAB BLOOD NON ADD- ON Performing Organization Address City/[facility]/ZIP Co de Phone Number [facility] [address] [place] [address], [facility] STMA [facility] [address] [place] [address] * (ABNORMAL) Hemoglobin A1c (12/18/2021 12:28 PM [...] CDT Buster Herrera M.D. LAB BLOOD ADD-ON [facility] [address] [place] [address], [place] [facility] [address] [place] [address] from Last 3 Months or Most Recently Relevant to Health Maintenance Advance Directives For more information, please contact: [phone] Documents on File Type Date Recorded Patient Broadcast Correspondent Expl anation Advance Directives 12/17/2011 12:00 AM Leg acy document. See document viewer. * Full Code (Latest Code Status on File) Date Activated Date Inactivated Comments 12/24/2021 6:31 PM 12/28/2021 5:21 PM Question Answer Comments Full Code: Discussed Care Teams Strip Picker Relationship Specialty Start Date End Date Elsewhere, Pcp PCP - General Internal Medicine 07/16/22
--- OUTSIDE RECORDS SUMMARY | 2023-10-06 13:44 | XMS_ITS | Referral Summary ---
Author Organization [place] Address [address] [place] [address] Care Team Providers Care Automotive Product Engineer Name Role Phone Denise Harris MD Primary Care Provider Anoop Emery MD Unavailable [phone] Inez Peck MD Unavailable [phone] Allergies Active Allergy Reactions Criticality Noted Date [...] mg by mouth 3 times daily Active [place]-3 Fatty Acids (OMEGA 3 PO) Take by [...] and gender (Jeni et al., NEJ, DOI: 10.1056/[id number]) Blood STRUCTURE OF LEFT UPPER LIMB / Unknown Venipuncture / Unknown 01/03/2022 10:12 AM CDT 01/03/2022 5:44 PM CDT Emi Wyatt NP LAB - BLOOD ORDERABL ES [facility] [place] [facility] [address] [facility], [address] [place] [address], [facility] [phone] from Last 3 Months or Most Recently Relevant to Health Maintenance Care Teams Automotive Product Engineer Relationship Specialty Start Date End Date Denise Harris MD [facility] [address] [place] [address] PCP - General Internal Medicine 01/17/15 Anoop Emery MD [facility] [address] [place] [address] Referring Physician Family Medicine 09/15/20 Inez Peck MD [address] [place] [address] Urology 09/15/20
--- OUTSIDE RECORDS SUMMARY | 2023-10-06 13:44 | XMS_ITS | Encounter Summary ---
Author Organization [facility] Address [address] [place] [address] Care Team Providers Care Clinical Data Abstractor Name Role Phone Elsewhere, Pcp Primary Care Provider Unavailabl e Reason for Referral * Outpatient (Routine) - Closed Specialty Diagnoses / Procedures Referred By Contact Referred To Contact Gastroenterology and Hepatology Diagnoses Constipation Rectocele Other Specified Disorders Of Muscle Anoop Emery M.D. [address] [place] [phone] [facility] Referral ID Status Reason Start Date Expiration Date Visits Re quested Visits Authorized [id number] Closed 09/02/2017 09/02/2018 1 1 Encounter Details Date Type Department Care Team (Late st Contact Info) Description 09/01/2017 [facility] [address] [place] [address] Anoop Emery M.D. [address] [place] [phone] Other Specified Disorders Of Muscle (Primary [...] Total Score: 5 04/29/19 17 10:10 AM COMPLIANCE ASSISTANT documented as of this encounter Care Teams Clinical Data Abstractor Relationship Specialty Start Date End Date Elsewhere, Pcp PCP - General Internal Medicine 07/16/22 documented as of this encounter
--- OUTSIDE RECORDS SUMMARY | 2023-10-06 13:44 | XMS_ITS | Encounter Summary ---
Author Organization [facility] Address [address] [place] [address] Care Team Providers Care Clerical Dentist Assistant Name Role Phone Elsewhere, Pcp Primary Care Provider Unavailabl e Encounter Details Date Type Department Care Team (Late st Contact Info) Description 08/04/2018 [facility] [address] [place] [address] Anoop Emery M.D. [address] [place] [phone] Other Dyspnea (Primary Dx) Social History Tobacco [...] Total Score: 5 04/29/19 17 10:10 AM HELPER METAL HANGING documented as of this encounter Care Teams Clerical Dentist Assistant Relationship Specialty Start Date End Date Elsewhere, Pcp PCP - General Internal Medicine 07/16/22 documented as of this encounter
--- OUTSIDE RECORDS SUMMARY | 2023-10-06 13:44 | XMS_ITS | Continuity of Care Document ---
Author Organization [facility] Address [address] [place] [address] Care Team Providers Care Caser Shoe Parts Name Role Phone Angus Cao CRNA Unavailable Unavailable Procedures Procedure Date Percutaneous Image guided neuromodulatio n or intra Advance Directives Directive Yes / No Effective Date File Name No Information Encounters Encounter Description Practice Location Reason(s) For Visit Diagnoses Date Provider Providers Copied on Encounter [facility], [address] [place], [place], [id number], [facility] No Information Nash Greco. [address] [facility] [place], [place], [id number] , . tel:[phone] Referring Provider: Davie Scherer, [address] [place], [address] . tel:[phone] Family History Family Member Type Diagnosis Age At Onset No Information Payers Payer name Insurance type Covered alliance party ID Authoriza tibrie(s) Blue Cross [place] Complete BL [id number] Social History Type Description Quantity Date [...]
--- OUTSIDE RECORDS SUMMARY | 2023-10-06 13:45 | XMS_ITS | Continuity of Care Document ---
Author Organization [facility] Address [address] [place] [address] Phone Care Team Providers Care Alpaca Farmer Name Role Phone Doug Mars MD Unavailable [...] Copied on Encounter [facility], [address], [place], [place], [id number], [place] tel:[phone] [facility] No Information 2 Jerad Camacho. [facility], [address], [place] [address], [place], [place], [id number], [place]. tel:[phone] Office/Outpa tient Visit,Est, Mod [facility], [address], [place], [place], [id number], [place] tel:[phone] [facility] Spinal stenosis, cervical regionOther forms of scoliosis, site unspecifiedS pondylolysis , site unspecifiedS kevin stenosis, lumbar region with neurogenic claudication 2 Jerad Camacho. [facility] [place], [address], [place] [address], [place], [place], [id number], [place]. tel:[phone] Referring Provider: Anoop Ruiz, [facility] [address] [place], [address]. tel:[phone] OFFICE/OUTPA TIENT VISIT EST Phone [facility], [address], [place], [place], [id number], [place] tel:[phone] [facility] No Information 2 Jerad Camacho. [facility] [place], [address] [place] [address], [place] [address], [place], [place], [id number], [place]. tel:[phone] Referring Provider: Anoop Ruiz, [facility] [address] [place], [address]. tel:[phone] Office/Outpa tient Visit,New, Mod [facility], [address], [place], [place], [id number], [place] tel:[phone] [facility] Spinal stenosis, cervical regionSpinal stenosis, lumbar region with neurogenic claudication Other spondylosis, lumbar region No Information Referring Provider: Anoop Ruiz, [facility] [address] [place], [address]. tel:[phone] Office/outpa tient visit,est, low Z [facility], [address], [place], [address], [place] tel:[phone] [facility] No Information 6 No Information Referring Provider: Gordon Boyd, [place] [address] [place], [address]. tel:[phone] Family History Family Member Type Diagnosis Age At Onset No Information Payers Payer name Insurance type Covered alliance party ID Mele weller(s) [facility] [id number] Medicare [facility] [id number] 1 Social History Type Description Quantity Date [...]
--- NOTE | 2023-10-06 14:00 | CRLHL7_ITS ---
For Patients: As a result of the Century Cures Act, medical imaging exams and procedure reports are released immediately into your electronic medical record. You may view this report before your referring provider. If you have questions, please contact your health care provider. INDICATION : Two right-sided TR 4 thyroid nodules greater than 1.5 cm. TECHNIQUE : Ultrasound-guided fine needle aspiration of both thyroid nodules. FNA of left-sided nodule not performed as the nodules on the left are less than 1.5 cm. Comparison : 09/30/2023 FINDINGS : PROCEDURE: After the informed consent and time-out, multiple fine needle aspirations were obtained from the thyroid nodule. Fine needle performed x 2. 25 gauge needles were used. Lidocaine was used for local anesthesia. The preliminary cytology was adequate for interpretation. Real-time imaging was used for guidance and needle placement. Post imaging ultrasound demonstrates no immediate complication. IMPRESSION : Successful fine needle aspiration of 2 right-sided thyroid nodules. Dictated by Enrico Ledezma MD @ 10/06/2023 3:48:09 PM (Electronically Signed)
== END 2023-10-06 13:41 | disposition home or self-care (01) ==
PROVIDERS: PCP Family Medicine; Visit Provider Surgery
DX: E04.1 Nontoxic single thyroid nodule (principal)
CPT/HCPCS: 10005; 88173

== ENCOUNTER 2023-10-08 16:29 | Outpatient (CLI) | payer MEDICARE, BC, SELFPAY ==
--- OUTSIDE RECORDS SUMMARY | 2023-10-08 16:32 | XMS_ITS | Encounter Summary ---
Author Organization [facility] Address [address] [place] [address] Care Team Providers Care Tile Applicator Name Role Phone Denise Harris MD Primary Care Provider Anoop Emery MD Unavailable [phone] Inez Peck See Luis Antonio GARZA Unavailable [phone] Inez Peck See Luis Antonio GARZA Unavailable [phone] Encounter Details Date Type Department Care Team (Late st Contact Info) Description 04/09/2018 [facility] [place] [address] Jeanine Ford DPJose Roberto, Podiatry/Foot and Ankle Surgery [address] [address] Foot pain, bilateral (Primary Dx) Social History [...] process of being sent. Geri Taveras, RN IFIED ALCOHOL DRUG COUNSELOR documented in this encounter Plan of Treatment Not on file documented as of this encounter Visit Diagnoses Diagnosis Foot pain, bilateral- Primary documented in this encounter Care Teams Tile Applicator Relationship Specialty Start Date End Date Denise Harris MD [address] [address] PCP - General Internal Medicine 01/17/15 Anoop Emery MD [address] [address] Referring Physician Family Medicine 09/15/20 Inez Peck MD [address] [place] [address] Urology 09/15/20 Inez Peck MD [address] [place] [address] Assigned Surgical Provider 11/12/20 05/10/22 documented as of this encounter
--- OUTSIDE RECORDS SUMMARY | 2023-10-08 16:32 | XMS_ITS | Referral Summary ---
Author Organization [facility] Address [address] [place] [address] Care Team Providers Care Sewing Trimmer Name Role Phone Denise Harris MD Primary Care Provider Anoop Emery MD Unavailable [phone] Inez Peck MD Unavailable [phone] Allergies Active Allergy Reactions Criticality Noted Date [...] mg by mouth 3 times daily Active [place]-3 Fatty Acids (OMEGA 3 PO) Take by [...] and gender (Jeni et al., NEJ, DOI: 10.1056/[id number]) Blood STRUCTURE OF LEFT UPPER LIMB / Unknown Venipuncture / Unknown 01/03/2022 10:12 AM CDT 01/03/2022 5:44 PM CDT Emi Wyatt NP LAB - BLOOD ORDERABL ES [facility] [place] [facility] [address] [facility], [address] [place] [address], [facility] [phone] from Last 3 Months or Most Recently Relevant to Health Maintenance Care Teams Sewing Trimmer Relationship Specialty Start Date End Date Denise Harris MD [facility] [address] [place] [address] PCP - General Internal Medicine 01/17/15 Anoop Emery MD [facility] [address] [place] [address] Referring Physician Family Medicine 09/15/20 Inez Peck MD [address] [place] [address] Urology 09/15/20
--- OUTSIDE RECORDS SUMMARY | 2023-10-08 16:32 | XMS_ITS ---
Author Organization [facility] Address [address] [place] [address] Care Team Providers Care Manager Clinical Applications Name Role Phone Unavailable Unavailable Unavailable Surgery Details Not on file Complications Check Surgery Details section. Procedure Estimated Blood Loss Check Surgery Details section. Procedure Findings Check Surgery Details section. Procedure Specimens Taken Check Surgery Details section.
--- OUTSIDE RECORDS SUMMARY | 2023-10-08 16:32 | XMS_ITS | Clinical Summary ---
Author Organization [facility] Address [address] [place] [address] Care Team Providers Care College Football Coach Name Role Phone Denise Harris MD Primary Care Provider Anoop Emery MD Unavailable [phone] Inez Peck MD Unavailable [phone] Allergies Active Allergy Reactions Criticality Noted Date [...] mg by mouth 3 times daily Active [place]-3 Fatty Acids (OMEGA 3 PO) Take by [...] and gender (Jeni et al., NEJ, DOI: 10.1056/[id number]) Blood STRUCTURE OF LEFT UPPER LIMB / Unknown Venipuncture / Unknown 01/03/2022 10:12 AM CDT 01/03/2022 5:44 PM CDT Emi Wyatt DEPOSITION OPERATOR LAB - BLOOD ORDERABL ES [facility] [facility] [address] [facility] [address], [address] [place] [address], [facility] [phone] from Last 3 Months or Most Recently Relevant to Health Maintenance Care Teams College Football Coach Relationship Specialty Start Date End Date Denise Harris MD [facility] [address] [place] [address] PCP - General Internal Medicine 01/17/15 Anoop Emery MD [facility] [address] [place] [address] Referring Physician Family Medicine 09/15/20 Inez Peck MD [address] [place] [address] [address] [place] [address] Urology 09/15/20
--- OUTSIDE RECORDS SUMMARY | 2023-10-08 16:32 | XMS_ITS | Clinical Summary ---
Author Organization [facility] Address [address] [place] [address] Care Team Providers Care Pipe Fittings Molder Name Role Phone Elsewhere, Pcp Primary Care Provider Unavailabl e Source Comments Patient records contain information from all sites at [facility]. For routine questions regarding patient records, call [phone] during business hours, M-F 8:00 AM - 5:00 PM Central Time. Record requests for emergency care only can be directed to [phone] at any time.[facility] Allergies Active Allergy Reactions Criticality Noted [...] (11/14/2021): Added automatically from request for surgery [id number] Pain Neuropathic 04/11/2020 Constipation 09/23/2017 Prolapse Vaginal [...] True Father Sunil Ledesma Prenbrooklynn Mother Swathi pace Paternal Grandmother Sintia [...] often do you attend chur ch or faith services? Never 07/18/2022 Do you belong to any clubs o r organizations such as islam groups, unions, fraternal [...] and heating? Not hard at all 07/18/2022 [facility] Occupat ional Health - Occupational Stress [...] or slept in a assisted (including now)? No 07/18/2022 Nutrition Answer Date [...] 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, GASOLINE PUMP MECHANIC, ODILIA) 07/15/2020 Sex and Gender Information Value [...] Discontinued 12/18/2021 Medical Devices Implanted Type Area Chemist Device Identifier Shelf Expiration Date Model / Serial / Lot Self Drilling Cortex Screw 6mm Implanted:Qty: 5 on 12/24/2021 by Buster Herrera M.D. at [facility] Hardware e.g. pins/screws /rods N/A: Posterior Cervical Depuy Synthes 401.136. 99 / / Self Drilling Cortex Screw 8mm Implanted:Qty: 6 on 12/24/2021 by Buster Herrera M.D. at [facility] Hardware e.g. pins/screws /rods N/A: Posterior Cervical Depuy Synthes 401.13.8 99 / / Miniplate Double Bend 10mm Spacing Implanted:Qty: 3 on 12/24/2021 by Buster Herrera M.D. at [facility] Hardware e.g. pins/screws /rods N/A: Posterior Cervical Depuy Synthes 443.180 / / J J Sig Tib Poly Stab #4 8.0m - Gallo [id number] Implanted:Qty: 1 on 12/18/2011 Knee Implant Other/Legacy - See Implant Description Color [employer] Description:Device Manufactu [facility] - J & J [employer]. Body Location - Other. Right. Device Status Text - [id number] [id number]. J J Patella Rev Round 35m - Gallo [id number] Implanted:Qty: 1 on 12/18/2011 Knee Implant Other/Legacy - See Implant Description [employer] Description:Device Manufactu rer - J [employer] J [employer]. Body Location - Other. Right. Device Status Text - [id number] [id number]. Sigma Post Stab.W Lug Fem Sz 5 Rt - Gallo [id number] Implanted:Qty: 1 on 12/18/2011 Knee Implant Other/Legacy - See Implant Description [employer] Description:Device Manufactu rer - J [employer] J [employer]. Body Location - Other. Right. Device Status Text - KNEE [id number]. Cement Bone Small - Gall[place] [id number] Implanted:Qty: 1 on 12/18/2011 Misc Other Shanna Description:Device Manufactu rer - Shanna Mariama.. Device Status Text - MISCOTHER-2841. Cement Bone Large - Gallo [id number] Implanted:Qty: 1 on 12/18/2011 Misc Other [place] Description:Device Manufactu rer - Shanna Mariama.. Device [...] Basic Metabolic Panel (12/24/2021 8:41 PM CDT) [facility] Potassium, S 4.1 3.6 - 5.2 mmol/L [...] CDT Abdon Gill M.D. LAB BLOOD ADD-ON [facility] [address] [place] [address], [facility] DTL [facility] [address] [place] [address] * Sodium, B (12/24/2021 2:57 PM CDT) Pathologist [facility] Sodium, B 135 135 - 145 mmol/L 12/24/2021 2:58 PM CDT [facility] Blood (Blood, Arterial Line) 12/24/2021 2:57 PM CDT 12/24/2021 2:57 PM CDT Milton Davis M.D. LAB BLOOD NON ADD- ON Performing Organization Address City/[facility]/ZIP Co de Phone Number [facility] [address] [place] [address], [facility] STMA [facility] [address] [place] [address] * (ABNORMAL) Hemoglobin A1c (12/18/2021 12:28 PM [...] CDT Buster Herrera M.D. LAB BLOOD ADD-ON [facility] [address] [place] [address], [place] [facility] [address] [place] [address] from Last 3 Months or Most Recently Relevant to Health Maintenance Advance Directives For more information, please contact: [phone] Documents on File Type Date Recorded Patient Software Test Analyst Expl anation Advance Directives 12/17/2011 12:00 AM Leg acy document. See document viewer. * Full Code (Latest Code Status on File) Date Activated Date Inactivated Comments 12/24/2021 6:31 PM 12/28/2021 5:21 PM Question Answer Comments Full Code: Discussed Care Teams Pipe Fittings Molder Relationship Specialty Start Date End Date Elsewhere, Pcp PCP - General Internal Medicine 07/16/22
--- OUTSIDE RECORDS SUMMARY | 2023-10-08 16:32 | XMS_ITS | Encounter Summary ---
Author Organization [facility] Address [address] [place] [address] Care Team Providers Care Rivet Heater Gas Name Role Phone Denise Harris MD Primary Care Provider [phone] Anoop Emery MD Unavailable [phone] Inez Peck MD Unavailable [phone] Inez Peck MD Unavailable [phone] Encounter Details Date Type Department Care Team (Late st Contact Info) Description 10/31/2020 MyC Medical Advice [facility] [address] 4[address] [place] [address] Inez Peck MD [address] [facility] [address] [place] [address] Social History Tobacco Use Types [...] on filedocumented in this encounter Care Teams Rivet Heater Gas Relationship Specialty Start Date End Date Denise Harris MD [address] [address] PCP - General Internal Medicine 01/17/15 Anoop Emery MD [facility] [address] [place] [address] Referring Physician Family Medicine 09/15/20 Inez Peck MD [address] [place] [address] Urology 09/15/20 Inez Peck MD [address] [place] [address] Assigned Surgical Provider 11/12/20 05/10/22 documented as of this encounter
--- OUTSIDE RECORDS SUMMARY | 2023-10-08 16:32 | XMS_ITS | Referral Summary ---
Author Organization [facility] Address [address] [place] [address] Care Team Providers Care Jacquard Loom Card Changer Name Role Phone Elsewhere, Pcp Primary Care Provider Unavailabl e Source Comments Patient records contain information from all sites at [facility]. For routine questions regarding patient records, call [phone] during business hours, M-F 8:00 AM - 5:00 PM Central Time. Record requests for emergency care only can be directed to [phone] at any time.[facility] Allergies Active Allergy Reactions Criticality Noted [...] (11/14/2021): Added automatically from request for surgery [id number] Pain Neuropathic 04/11/2020 Constipation 09/23/2017 Prolapse Vaginal [...] often do you attend chur ch or baptism services? Never 07/18/2022 Do you belong to any clubs o r organizations such as mormonism groups, unions, fraternal [...] and heating? Not hard at all 07/18/2022 [facility] - Occupational Stress Questionnaire Answer Date [...] a [place] health care facility (including now)? No 07/18/2022 Nutrition Answer Date [...] 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, SLIVER LAP MACHINE TENDER, ODILIA) 07/15/2020 Sex and Gender [...] on file Medical Devices Implanted Type Area Visiting Housekeeper Device Identifier Shelf Expiration Date Model / Serial / Lot Self Drilling Cortex Screw 6mm Implanted:Qty: 5 on 12/24/2021 by Buster Herrera M.D. at [facility] Hardware e.g. pins/screws /rods N/A: Posterior Cervical Depuy Synthes 401.136. 99 / / Self Drilling Cortex Screw 8mm Implanted:Qty: 6 on 12/24/2021 by Buster Herrera M.D. at [facility] Hardware e.g. pins/screws /rods N/A: Posterior Cervical Depuy Synthes 401.13.8 99 / / Miniplate Double Bend 10mm Spacing Implanted:Qty: 3 on 12/24/2021 by Buster Herrera M.D. at [facility] Hardware e.g. pins/screws /rods N/A: Posterior Cervical Depuy Synthes 443.180 / / J J Sig Tib Poly Stab #4 8.0m - Gallo [id number] Implanted:Qty: 1 on 12/18/2011 Knee Implant Other/Legacy - See Implant Description [employer] Description:Device Manufactu rer - J & J Healthcare. Body Location - Other. Right. Device Status Text - [id number] [id number]. J J Patella Rev Round 35m - Gallo [id number] Implanted:Qty: 1 on 12/18/2011 Knee Implant Other/Legacy - See Implant Description [employer] Description:Device Manufactu rer - J & J [employer]. Body Location - Other. Right. Device Status Text - [id number] [id number]. Sigma Post Stab.W Lug Fem Sz 5 Rt - Gallo [id number] Implanted:Qty: 1 on 12/18/2011 Knee Implant Other/Legacy - See Implant Description [employer] Description:Device Manufactu rer - J [employer] J [employer]. Body Location - Other. Right. Device Status Text - KNEE [id number]. Cement Bone Small - Gallo [id number] Implanted:Qty: 1 on 12/18/2011 Misc Other [place] Description:Device Manufactu rer - Shanna Mairama.. Device Status Text - MISCOTHER-2841. Cement Bone Large - Gallo [id number] Implanted:Qty: 1 on 12/18/2011 [facility] Other [place] Description:Device Manufactu rer - [place] Mariama.. Device Status Text - MISCOTHER-2840. Procedures Procedure Name Priority Date/Time Associated Diagnosis Comments BASIC METABOLIC PANEL, S/P Routine 12/24/2021 8:41 PM CDT SODIUM, B STAT 12/24/2021 2:57 PM CDT HEMOGLOBIN A1C, B Routine 12/18/2021 12: 28 PM CDT Preoperative Exam from Last 3 Months or Most Recently Relevant to Health Maintenance Results * (ABNORMAL) Basic Metabolic Panel (12/24/2021 8:41 PM CDT) Pathologist [facility] Potassium, S 4.1 3.6 - 5.2 [...] CDT Abdon Gill M.D. LAB BLOOD ADD-ON [facility] [address] [place] [address], [facility] [address] [place] [address] * Sodium, B (12/24/2021 2:57 PM CDT) Sodium, B 135 135 - 145 mmol/L 12/24/2021 2:58 PM CDT [facility] Blood (Blood, Arterial Line) 12/24/2021 2:57 PM CDT 12/24/2021 2:57 PM CDT Milton Davis M.D. LAB BLOOD NON ADD- ON Performing Organization Address [facility] Co de Phone Number [facility] [address] [place] [address], [facility] STMA [facility] [address] [place] [address] * (ABNORMAL) Hemoglobin A1c (12/18/2021 12:28 PM [...] M.D. LAB BLOOD ADD-ON Performing Organization Address City/[facility]/ZIP Co de Phone Number [facility] [address] [place] [address], [facility] [address] [place] [address] from Last 3 Months or Most Recently Relevant to Health Maintenance Advance Directives For more information, please contact: [phone] Documents on File Type Date Recorded Patient Corporate Travel Counselor Expl anation Advance Directives 12/17/2011 12:00 AM Leg acy document. See document viewer. * Full Code (Latest Code Status on File) Date Activated Date Inactivated Comments 12/24/2021 6:31 PM 12/28/2021 5:21 PM Question Answer Comments Full Code: Discussed Care Teams Jacquard Loom Card Changer Relationship Specialty Start Date End Date Elsewhere, Pcp PCP - General Internal Medicine 07/16/22
--- OUTSIDE RECORDS SUMMARY | 2023-10-08 16:32 | XMS_ITS | Clinical Summary ---
Author Organization [facility] Address [place], [place] [address] Care Team Providers Care Pneumatic Drum Sander Name Role Phone Anoop Emery MD Primary Care Provider [phone] Allergies Active Allergy Reactions Criticality Noted Date [...] nasal solution (FLONASE)Indicati ons:Seasonal allergies Inhale 1 [place] to both nostrils two times daily. 12/28/2021 [...] daily if needed. 12/28/2021 Active fish,bora,flax oils-om3,6,9no1 ([place] 3-6-9) 1,200 mg cap Take 1 capsule. [...] Major depressive disorder, recurrent, moderate 0 07/14/2006 Encounters Date Type Department Care Team Description 10/06/2023 Lab Requisition [facility] [phone] Dionicio Galo MD from Last 3 Months Immunizations Name Administration [...] Procedure Name Priority Date/Time Associated Diagnosis Comments PATH FNA CYTOLOGY ASP CYTOLOGY Routine 10/06/2023 2:30 PM CDT ANTI HCV Routine 01/07/2019 1:40 PM CDT Need for hepatitis C screening test LIPID PANEL W REFLEX MEASURED LDL Routine 12/08/2018 4:10 PM CDT Chronic diastolic CHF (congestive heart failure) (HC) Mitral valve disorders Chronic diastolic heart failure (HC) ROLLINS (dyspnea on exertion) from Last 3 Months or Most Recently Relevant to Health Maintenance Results * PATH FNA CYTOLOGY ASP CYTOLOGY (10/06/2023 2:30 PM CDT) Case Report Medical Cytology Report ? Case: [id number] ? Authorizing Provider: ??Dionicio Galo MD ?Collected: ? 10/06/2023 1430 ? Ordering Location: ? [facility] ?Received: ?10/07/2023 0735 ? Pathologist: ? Jenifer Fink MD ? Specimens: ?? A) - Right Mid Thyroid, midportion ? B) - Right Superior Thyroid, upper pole ? 10/07/2023 12:49 PM CDT [facility]AL LAB[facility]AT[facility] Final Diagnosis A) THYROID, RIGHT MID, ULTRASOUND GUIDED FINE NEEDLE ASPIRATION: 1. Benign thyroid nodule 2. Negative for malignancy ?? 3. See comment B) THYROID, RIGHT SUPERIOR, ULTRASOUND GUIDED FINE NEEDLE ASPIRATION: 1. Benign thyroid nodule 2. Negative for malignancy 3. See comment 10/07/2023 12:49 PM T [facility] Comment A,B) The risk of malignancy in the follow-up of lesions with this cytologic appearance is low (0-3%). Clinical and radiologic correlation is advised, with repeat sampling recommended for any suspicious or enlarging lesion at this site. 10/07/2023 12:49 PM CDT [facility] Clinical Information Ms. Adames is a 68 y.o. female with two TR4, 1.6 and 1.9 c right thyroid nodules. 10/07/2023 12:49 PM CDT [facility] Gross Description A) Received identified as right mid thyroid is a fine needle aspirate specimen. The following were received: ? -6 Air dried slides ? -1 CytoLyt vial ? -1 FNA Protect vial The following were prepared from the specimen submitted: ? -6 Diff-Quik stained slides ? -1 Papanicolaou stained ThinPrep slide B) Received identified as right superior thyroid is a fine needle aspirate specimen. The following were received: ? -6 Air dried slides ? -1 CytoLyt vial ? -1 FNA Protect vial The following were prepared from the specimen submitted: ? -6 Diff-Quik stained slides ? -1 Papanicolaou stained ThinPrep slide 10/07/2023 12:49 PM CDT [facility] Adequacy Assessment 10/07/2023 12:49 PM CDT [facility] Microscopic Description A) Specimen adequacy: Low but adequate cellularity for interpretation. B) Specimen adequacy: Adequate for interpretation. All slides were reviewed. The microscopic appearance substantiates the diagnosis. 10/07/2023 12:49 PM CDT [facility] Additional Information Cytology is screened at [facility] - [address], [place] [address] and [facility] - [address] [place] [address] and [facility] - [address] [place] [address] Interpreted at [facility] - [address], [place] [address] 10/07/2023 12:49 PM CDT [facility] Aspirate (Right Mid Thyroid) 10/06/2023 2:30 PM CDT 10/07/2023 7:35 AM CDT Specimen obtained by aspiration (specimen) (Right Superior Thyroid) 10/06/2023 2:30 PM CDT 10/07/2023 7:35 AM CDT Dionicio Galo MD PATHOLOGY/CYTOLOGY [facility] [address] [place] [address], * ANTI HCV (01/07/2019 1:40 PM CDT) HEPATITIS C ANTIBODY Non-React shandra Non-React shandra 01/07/2019 8:28 PM CDT [facility] TR[facility] LABORATORY Comment:Antibodies to HCV no t detected; does not exclude the possibility of exposure to HCV. Blood BLOOD SPECIMEN / Unknown Venipuncture / Unknown 01/07/2019 1:40 PM CDT 01/07/2019 1:47 PM CDT Thalia COMBS SEND OUTS [facility] [address] [place] [address], [place] * (ABNORMAL) LIPID PANEL W REFLEX MEASURED LDL (12/08/2018 4:10 PM CDT) Pathologist [facility] CHOLESTEROL,TOTAL 213(H) 100 - 199 mg/dL 12/08/2018 8:47 PM CDT [facility] LAB[facility]AT[facility] TRAL LABORATORY TRIGLYCERIDES 249(H) <150 mg/dL 12/08/2018 8:47 PM CDT [facility] LABORAT[facility] TRAL LABORATORY HDL CHOLESTEROL 49 >40 mg/dL 9 8:47 PM CDT [facility] TRAL LABORATORY NON-HDL CHOLESTEROL 164(H) <145 mg/dl 12/08/2018 8:47 PM CDT [facility] TRAL LABORATORY CHOL/HDL RATIO 4.35 <4.50 12/08/2018 8:47 PM CDT [facility] LABORAT[facility] TRAL LABORATORY LDL CHOLESTEROL 114 <=130 mg/dL 12/08/2018 8:47 PM CDT [facility] LABORAT[facility] TRAL LABORATORY PROVIDER ORDERED STATUS RANDOM 12/08/2018 8:47 PM CDT [facility] TRAL LABORAT[facility] Blood BLOOD SPECIMEN / Unknown Venipuncture / Unknown 12/08/2018 4:10 PM CDT 12/08/2018 4:37 PM CDT Keon Hong MD CHEMISTRY [facility] [address] [place] [address], [place] from Last 3 Months or Most Recently Relevant to Health Maintenance Advance Directives * Full Code (Latest Code Status on File) Date Activated Date Inactivated Comments 2005 1:25 PM 05/17/2005 7:54 PM * Full Code Date Activated Date Inactivated Comments 2005 9:32 AM 2005 1:25 PM Care Teams Pneumatic Drum Sander Relationship Specialty Start Date End Date Anoop Emery MD [address] [place] [address] PCP - General Family Practice 04/09/21
--- OUTSIDE RECORDS SUMMARY | 2023-10-08 16:32 | XMS_ITS | Clinical Summary ---
Author Organization [facility] Address [address] [address] Care Team Providers Care Ore Storage Drier Name Role Phone Thalia Barron PA-C Primary Care Provider Un available Source Comments You are receiving this document as you are listed as the primary care provider,follow-up provider, or the patient has been referred to you for consultation.This is in compliance with the Medicare and[facility] EHR Incentive Program,which states Providers who transition their patient to another setting of careor provider of care or refers their patient to another provider of care shouldprovide summary care record for each transition of care or referral. [employer] Allergies Active Allergy Reactions Criticality Noted Date [...] Instr:for eczema on hand 15 04/26/2009 Active Cornelius-3 Fatty Acids ([facility] FISH OIL) 1200 MG [...] 12 04/26/2009 Active nystatin-triamcinolo ne (AKA MYCOLOG-II) 970979-2.1 UNIT/GM-% cream Apply 1 Applicatorful topically 3 [...] Comments Blood Pressure 118/80 05/01/2009 7:20 AM STORE DETECTIVE C: Dynamap Pulse 102 05/01/2009 7:20 AM STORE DETECTIVE Temperature 36.7 ??C (98.1 ??F) 05/01/2009 7 :20 AM STORE DETECTIVE ORAL C: 98.1 F Respiratory Rate 16 05/01/2009 7:20 AM STORE DETECTIVE Oxygen Saturation 96% 05/01/2009 7:2 1 AM STORE DETECTIVE Inhaled Oxygen Concentration - - Weight - [...] age to complete this topic Care Teams Ore Storage Drier Relationship Specialty Start Date End Date Thalia Barron PA-C PCP - General Physician Oim Architect 10/06/18
--- OUTSIDE RECORDS SUMMARY | 2023-10-08 16:33 | XMS_ITS | Continuity of Care Document ---
Author Organization [facility] Address [address] [place] [address] Phone Care Team Providers Care [employer] Law Clerk Name Role Phone Logan Hart Unavailable Unavailable [...] - No Longer Active Procedures Procedure Date BANNER Lead Pull Satellite No Charge For Visit [...] Diagnoses Date Provider Providers Copied on Encounter [facility], [address] [place] [address], [id number] , [place] tel:[phone] [facility] Type 2 diabetes mellitus with diabetic neuropathy, unspecified 3 Yoon Ford. [address] [facility] [address] [facility] [address], [place], [id number], [place]. tel:[phone] Referring Provider: Anoop Emery, [address], [address]. tel:[phone] [facility], [address] [place] [address], [id number] , [place] tel:[phone] [facility] Type 2 diabetes mellitus with diabetic neuropathy, unspecified 3 Niesha Broderick. [address] [place], [place], [id number], [place]. tel:[phone] Referring Provider: Anoop Emery [facility] [address] [place], [address]. tel:[phone] OFFICE VISIT, EST TELEMEDICINE [facility], [address] [place] [address], [id number] , [place] tel:[phone] [facility] Widespread pain (chief complaint) Type II diabetes mellitus with diabetic neuropathy 3 Kira Bergeron. [address] [facility] [address], [facility] [address], [place], [id number], [place]. tel:[phone] [facility], [address] [place] [address], [id number] , [place] [phone] [facility] [place] pain (chief complaint) Type II diabetes mellitus with diabetic neuropathy 3 Lalitha Sandoval. [address] [place], [place], [id number], [place]. [phone] Psych Dx Eval [facility], [address] [place] [address], [id number] , [place] tel:[phone] Telehealth Pain disorder with related psychological factorsMajor depressive disorder, recurrent, in partial remissionAlcoh ol dependence, in remission 3 Natalia Brice. [address] [place] [address], [id number], [place]. tel:[phone] OFFICE/OUTPAT IENT VISIT, EST [facility], [address] [place] [address], [id number] , [place] [phone] [facility] Widespread pain (chief complaint) Type II diabetes mellitus with diabetic neuropathyChro amie pain syndromeSpinal stenosis, lumbar region without neurogenic claudicationPo stlaminectomy syndrome, not elsewhere classifiedLong term (current) use of opiate analgesic 3 Kira Bergeron. [address] [place] [address], [address], [id number], [place]. tel:[phone] Referring Provider: Anoop Emery [facility] [address] [place], [address]. tel:[phone] [facility], [address] [place] [address], [id number] , [place] tel:[phone] [facility] No Information 3 Kira Bergeron. [address] [facility] [address], [facility] [address], [place], [id number], [place]. tel:[phone] Referring Provider: Anoop Emery [facility] [address] [place], [address]. tel:[phone] OFFICE/OUTPAT IENT VISIT, [facility], [address] [place], [place], [id number] , [place] tel:[phone] [facility] [place] Widespread pain (chief complaint) Chronic pain syndromePostla minectomy syndrome, not elsewhere classifiedLong term (current) use of opiate analgesicEncou nter for therapeutic drug level monitoringSpin al stenosis, lumbar region without neurogenic claudicationTy pe II diabetes mellitus with diabetic neuropathy 3 Kira Elyssa. [address], [place], [place], [id number], [place]. tel:[phone] Referring Provider: Anoop Emery, [facility] [address] [place], [address]. tel:[phone] Family History Family Member Type Diagnosis Age At Onset No Information Payers Payer name Insurance type Covered alliance party ID Authoriza nithin(s) Blue Cross [place] Complete BL [id number] Social History Type Description Quantity Date [...] due Goal Creatinine. Due on due Goal APPLICATIONS SUPPORT SPECIALIST Scanned. Due on 023 due Goal ALT (SGPT). Due on due Goal UDT. Due on due Goal AST (SGOT). Due on due Goal SAGGER PREPARER Paperwork. Due on due Goal OARS. Due [...] due Goal FIT-DNA. Due on due Goal SAGGER PREPARER Paperwork. Due on due Goal ALT (SGPT). Due on due Goal APPLICATIONS SUPPORT SPECIALIST Scanned. Due on due Goal Order Annual [...] Goal AST (SGOT). Due on due Goal APPLICATIONS SUPPORT SPECIALIST Scanned. Due on due Goal ALT (SGPT). Due on due Goal Order Annual PT. Due on due Goal OARS. Due on due Goal UDT. Due on due Goal Creatinine. Due on due Goal SAGGER PREPARER Paperwork. Due on due Goal Medication Reconciliation. [...] Order Annual PT. Due on due Goal SAGGER PREPARER Paperwork. Due on due Goal Creatinine. Due [...] due Goal FIT-DNA. Due on due Goal APPLICATIONS SUPPORT SPECIALIST Scanned. Due on due Goal UDT. Due [...] Social History. Due o n due Goal APPLICATIONS SUPPORT SPECIALIST Scanned. Due on due Goal UDT. Due on due Goal ALT (SGPT). Due on due Goal OARS. Due on due Goal Order Annual PT. Due on due Goal SAGGER PREPARER Paperwork. Due on due Goal Creatinine. Due on due Goal AST (SGOT). Due on due Goal UDT. Due on due Goal AST (SGOT). Due on due Goal Order Annual PT. Due on due Goal OARS. Due on due Goal ALT (SGPT). Due on due Goal SAGGER PREPARER Paperwork. Due on due Goal Creatinine. Due on due Goal APPLICATIONS SUPPORT SPECIALIST Scanned. Due on due Goal FIT. Due [...] is for doctors visits. she has a LOAN FUNDER that comes in and helps her with [...] hx of cervical foraminotomy late 2021 at [facility]. Has an upcoming appt at [facility] regarding her low back pain. Her worst [...] closer to home. No other concerns today. Comments: This i s my first evaluation of the patient. Some outside records from [facility] are available for review. Her daughter, Asha, participates in the discussion of care.Yaz is a 67 y/o female here for initial consult for low back, neck, and BL feet pain, referred by Dr. Anoop Emery, through [facility]. Pain has gradually worsened over 20 years ago and started with BL knee pain. Pain is primarily She describes pain as aching, burning, stabbing, crippling, and shooting and rates the pain severity 6/10. She also has a dx of fibromyalgia. Denies hx of low back surgery. Does report a hx of cervical foraminotomy late 2021 at [facility]. After surgery, she noticed improvement in mobility [...] No recent EMG. She has tried PT, care professional, and ESIs, without lasting relief. The patient has previously tried cymbalta, lidocaine patches, and CBD.The patient is currently managed on Lyrica 150mg TID, venlaxafine 225mg AM, oxycodone (once daily), voltaren gel, ibuprofen 800mg TID, hydrochlorothiazide 25mg AM, metformin 500mg (1000mg AM and PM), trazodone 2000mg HS, xarelto 10mg, and pramipexole 0.3275mg 5 tabs/day.Yaz is interested in all treatment options through [facility]. No other concerns today.Of note, patient has a hx of alcohol abuse and has been sober for 37 years. Widespread pain Severity level i s 6. Duration: chronic. The client describes it as achy, burning, stabbing, shooting and crippling. It occurs persistently. Symptom is aggravated by running, sitting, standing, walking, housework and movement. Relieving factors include heat, Rx Meds and laying down. Pertinent negatives include diarrhea, dyspnea, fever and incontinence (urinary). Functional Status Date Functional Assessmen t No [...]
--- OUTSIDE RECORDS SUMMARY | 2023-10-08 16:33 | XMS_ITS | Encounter Summary ---
Author Organization [facility] Address [address] [place] [address] Care Team Providers Care Vfx Artist Name Role Phone Elsewhere, Pcp Primary Care Provider Unavailabl e Encounter Details Date Type Department Care Team (Late st Contact Info) Description 08/04/2018 [facility] [address] [place] [address] Anoop Emery M.D. [address] [place] [id number] Other Dyspnea (Primary Dx) Social History Tobacco [...] Total Score: 5 04/29/19 17 10:10 AM PROCESS LEAD documented as of this encounter Care Teams Vfx Artist Relationship Specialty Start Date End Date Elsewhere, Pcp PCP - General Internal Medicine 07/16/22 documented as of this encounter
--- OUTSIDE RECORDS SUMMARY | 2023-10-08 16:33 | XMS_ITS | Continuity of Care Document ---
Author Organization [facility] Address [address] [place] [address] Care Team Providers Care Machine Oiler Name Role Phone Angus Cao CRNA Unavailable Unavailable Procedures Procedure Date Percutaneous Image guided neuromodulatio n or intra Advance Directives Directive Yes / No Effective Date File Name No Information Encounters Encounter Description Practice Location Reason(s) For Visit Diagnoses Date Provider Providers Copied on Encounter [facility], [address] [place], [place], [id number], [facility] No Information Nash Greco. [address] [facility], [place], [place], [id number] , . tel:[phone] Referring Provider: Davie Scherer, [address] [place], [address] . tel:[phone] Family History Family Member Type Diagnosis Age At Onset No Information Payers Payer name Insurance type Covered constitution party ID Authoriza tibrie(s) Blue Cross [place] Complete [place] [id number] Social History Type Description Quantity Date [...]
--- OUTSIDE RECORDS SUMMARY | 2023-10-08 16:33 | XMS_ITS | Continuity of Care Document ---
Author Organization [facility] Address [address] [place] [address] Phone Care Team Providers Care Tank Processor Name Role Phone Doug Mars MD Unavailable [...] Copied on Encounter [facility], [address], [place], [place], [id number], [place] tel:[phone] [facility] No Information 2 Jerad Camacho. [facility], [address], [place] [address], [place], [place], [id number], [place]. tel:[phone] Office/Outpa tient Visit,Est, Mod [facility], [address], [place], [place], [id number], [place] tel:[phone] [facility] Spinal stenosis, cervical regionOther forms of scoliosis, site unspecifiedS pondylolysis , site unspecifiedS kevin stenosis, lumbar region with neurogenic claudication 2 Jerad Camacho. [facility] [place], [address], [place] [address], [place], [place], [id number], [place]. tel:[phone] Referring Provider: Anoop Ruiz, [facility] [address] [place], [address]. tel:[phone] OFFICE/OUTPA TIENT VISIT EST Phone [facility], [address], [place], [place], [id number], [place] tel:[phone] [facility] No Information 2 Jerad Camacho. [facility] [place], [address] [place] [address], [place] [address], [place], [place], [id number], [place]. tel:[phone] Referring Provider: Anoop Ruiz, [facility] [address] [place], [address]. tel:[phone] Office/Outpa tient Visit,New, Mod [facility], [address], [place], [place], [id number], [place] tel:[phone] [facility] Spinal stenosis, cervical regionSpinal stenosis, lumbar region with neurogenic claudication Other spondylosis, lumbar region No Information Referring Provider: Anoop Ruiz, [facility] [address] [place], [address]. tel:[phone] Office/outpa tient visit,est, low Z [facility], [address], [place], [address], [place] tel:[phone] [facility] No Information 6 No Information Referring Provider: Gordon Boyd, [place] [address] [place], [address]. tel:[phone] Family History Family Member Type Diagnosis Age At Onset No Information Payers Payer name Insurance type Covered constitution party ID Mele weller(s) [facility] [id number] Medicare [facility] BL [id number] 1 Social History Type Description Quantity Date [...]
--- OUTSIDE RECORDS SUMMARY | 2023-10-08 16:33 | XMS_ITS | Continuity of Care Document ---
Author Organization [facility] Address [address] [address] [place] [address] Care Team Providers Care Product Design Engineer Name Role Phone [place], [place] Unavailable Unav ailable Procedures Procedure Date Colono Advance Directives Directive Yes / No Effective Date File Name No Information Encounters Encounter Description Practice Location Reason(s) For Visit Diagnoses Date Provider Providers Copied on Encounter [facility], [address] [address], [place], [place], [id number], [place] [facility] No Information [facility]. [address] [address], [place], [place], [id number], . tel:[phone] Referring Provider: Joanne Grimm MD, [address] [facility] [address], [place], [address] . tel:[phone] Family History Family Member Type Diagnosis Age At Onset No Information Payers Payer name Insurance type Covered alliance party ID Authoriza tion(s) Blue Cross [place] Blue BL [id number] Social History Type Description Quantity Date Captured [...]
--- OUTSIDE RECORDS SUMMARY | 2023-10-08 16:33 | XMS_ITS | Continuity of Care Document ---
Author Organization [facility] Address [address] [place] [address] Phone Care Team Providers Care Casing Trimmer Name Role Phone [facility] Unavailable Unava ilable Procedures Procedure Date IMPLANT NEUROELECTRODES Implt neurostim elctr each IMPLANT NEUROELECTRODES Advance Directives Directive Yes / No Effective Date File Name No Information Encounters Encounter Description Practice Location Reason(s) For Visit Diagnoses Date Provider Providers Copied on Encounter [facility], [address] [place] [address], [id number], [place] tel:[phone] [facility] No Information [facility]. [address] [place] [address], [id number], . tel:[phone] Referring Provider: Davie Scherer, [address] [place], [address] . tel:[phone] Family History Family Member Type Diagnosis Age At Onset No Information Payers Payer name Insurance type Covered republican ID Authoriza tion(s) Blue Cross [place] Complete [place] [id number] Social History Type Description Quantity Date [...]
--- OUTSIDE RECORDS SUMMARY | 2023-10-08 16:33 | XMS_ITS | Continuity of Care Document ---
Author Organization [facility] Address [address] [address] [place] [address] Phone Care Team Providers Care Clinical Operations Manager Name Role Phone Briana Prabhakar CRNA Unavailable Unavail able Allergies, Adverse Reactions, Alerts Substance Reaction Status Criticality No Known Allergies Active No Inform ation Medications Medication Instructions Dosage Effective Dates (start - stop) Status Comments glipizide 5 mg tablet take 1 tablet by ORAL route every day before meals 5 MG - Active venlafaxine ER 225 mg tablet,extended release 24 hr take 1 tablet by oral route every day in the morning at the same time each day with food 225 MG - Active HYDROCHLOROTHIAZIDE (unknown strength) take 1 Tablet by oral route every day Not Available - Active pregabalin 150 mg capsule take 1 capsule by oral route 3 times every day 150 MG - Active pregabalin 100 mg capsule take 1 capsule by oral route 3 times every day 100 MG - Active Xarelto 10 mg tablet take 1 tablet by oral route every day 10 MG - Active trazodone 100 mg tablet take 1 tablet by oral route every bedtime 100 MG - Active metformin 500 mg tablet take 2 tablet by ORAL route 2 times every day with morning and evening meals 1000 MG - Active pramipexole 0.125 mg tablet take 1 tablet by oral route every day 0.2mg 0.125 MG - Active ondansetron 4 mg disintegrating tablet take 1 tablet by mouth every 4 hours as needed for nausea during colon prep. - Active procedure 02/20/22 Procedures Procedure Date Colonoscopy Flex; W/remov Les- Level Iv-surg Path Gross/micro Advance Directives Directive Yes / No Effective Date File Name No Information Encounters Encounter Description Practice Location Reason(s) For Visit Diagnoses Date Provider Providers Copied on Encounter [facility], [address] [address], [place], [place], [id number], [place] tel:[phone] [facility] No Information 2 Nahid Warren. [address] [facility], [facility] [address], [place], [place], [id number] , [place]. [phone] Referring Provider: Joanne Grimm MD, [address] [address], [place], [address]. tel:[phone] [facility], [address] [address], [place], [place], [id number], [place] tel:[phone] [facility] GI Symptoms or Concerns (chief complaint) Colorectal polypsEncounter for screening for malignant neoplasm of colonPolyp of colon 2 Sirisha GARZA June. [address] [facility], [facility] [address], [facility] [place], [id number] , [place]. [phone] Referring Provider: Dionicio Galo MD, [address] [place], [address]. tel:[phone] [facility], [address] [address], [place], [place], [address], [place] tel:[phone] [facility] No Information 2 Sirisha GARZA [address] [facility], [facility] [address], [facility] [place], [id number] , [place]. tel:[phone] [facility], [address] [address], [place], [place], [address], [place] tel:[phone] [facility] No Information 2 Nahid Ford. [address] [facility], [facility] [address], [place], [place], [address] , [place]. tel:[phone] Family History Family Member Type Diagnosis Age At Onset Brother Problem (finding) Alcoholism Father Problem (finding) Cancer, prostate Mother Problem (finding) Diverticular disease Brother Problem (finding) Cancer, prostate Immunizations Vaccine Date Status Comments influenza, high-dose seasona l, quadrivalent, .7mL dose, preservative free administered Note: [facility] bi-direct ional interface ; Source: Other Registry SARS-COV-2 (COVID-19) vaccin e, mRNA, spike protein, LNP, bivalent booster, preservative free, 30 mcg/0.3 mL dose, lee-sucrose formulation administered Note: [facility] bi-d irectional interface ; Source: Other Registry Pneumovax 23 administered Note: [facility] bi-d irectional interface ; Source: Other Registry SARS-COV-2 (COVID-19) vaccin e, mRNA, spike protein, LNP, preservative free, 100 mcg/0.5mL dose or 50 mcg/0.25mL dose administered Note: [facility] bi -directional interface ; Source: Other Registry influenza, high-dose seasona l, quadrivalent, .7mL dose, preservative free administered Note: [facility] bi-direct ional interface ; Source: Other Registry SARS-COV-2 (COVID-19) vaccin e, vector non-replicating, recombinant spike protein-[id number], preservative free, 0.5 mL administered Note: [facility] bi- directional interface ; Source: Other Registry Prevnar 13 administered Note: [facility] bi-d irectional interface ; Source: Other Registry Seasonal trivalent influenza vaccine, adjuvanted, preservative free administered Note: [facility] bi-direct ional interface ; Source: Other Registry Afluria Qd administered Note: [facility] bi-directional interface ; Source: Other Registry Afluria Qd administered Note: [facility] bi-directional interface ; Source: Other Registry Afluria Qd administered Note: [facility] bi-directional interface ; Source: Other Registry Afluria Qd administered Note: [facility] bi-directional interface ; Source: Other Registry tetanus toxoid, reduced diphtheria toxoid, and acellular pertussis vaccine, adsorbed administered Note: [facility] b i-directional interface ; Source: Other Registry zoster vaccine, live administered Note: [facility] bi-directional interface ; Source: Other Registry Influenza, seasonal, injecta ble, preservative free administered Note: [facility] bi-direct ional interface ; Source: Other Registry Influenza, seasonal, injecta ble, preservative free administered Note: [facility] bi-direct ional interface ; Source: Other Registry Influenza, seasonal, injecta ble, preservative free administered Note: [facility] bi-direct ional interface ; Source: Other Registry Influenza, seasonal, injecta ble, preservative free administered Note: [facility] bi-direct ional interface ; Source: Other Registry Influenza, seasonal, injecta ble, preservative free administered Note: [facility] bi-direct ional interface ; Source: Other Registry Novel [id number], all formulations administered Note: [facility] bi-direct ional interface ; Source: Other Registry influenza virus vaccine, unspecified formulation administered Note: [facility] bi-di rectional interface ; Source: Other Registry Influenza, seasonal, injecta ble, preservative free administered Note: [facility] bi-direct ional interface ; Source: Other Registry Influenza, seasonal, injectable administe red Note: [facility] bi- directional interface ; Source: Other Registry Havrix administered Note: [facility] bi-d irectional interface ; Source: Other Registry tetanus and diphtheria toxoi ds, adsorbed, preservative free, for adult use (5 Lf of tetanus toxoid and 2 Lf of diphtheria toxoid) administered Note: [facility] bi-direct ional interface ; Source: Other Registry Payers Payer name Insurance type Covered libertarian ID Authoriza tion(s) [employer] [place] [employer] BL [id number] Social History Type Description Quantity Date Captured Comments Sex Female Smoking Status No Information Chief Complaint And Reason For Visit No Information Reason For Referral Reason For Referral No Information History Of Present Illness Encounter Date Complaint History Of Prese nt Illness GI Symptoms or Concerns Functional Status Date Functional Assessmen t No Information Instructions Date Instruction Additional Infor mation Colon Cancer Prevention Related to Colorectal polyps Colon Polyps Related to Color ectal polyps Assessments Type Assessment Date No Information Patient Care Teams Name Effective Dates (start - stop) Status Members No Information
--- OUTSIDE RECORDS SUMMARY | 2023-10-08 16:33 | XMS_ITS | Encounter Summary ---
Author Organization [facility] Address [address] [place] [address] Care Team Providers Care Bed Bug Exterminator Name Role Phone Elsewhere, Pcp Primary Care Provider Unavailabl e Reason for Referral * Outpatient (Routine) - Closed Specialty Diagnoses / Procedures Referred By Contact Referred To Contact Gastroenterology and Hepatology Diagnoses Constipation Rectocele Other Specified Disorders Of Muscle Anoop Emery M.D. [address] [place] [phone] [facility] Referral ID Status Reason Start Date Expiration Date Visits Re quested Visits Authorized [id number] Closed 09/02/2017 09/02/2018 1 1 Encounter Details Date Type Department Care Team (Late st Contact Info) Description 09/01/2017 [facility] [address] [place] [address] Anoop Emery M.D. [address] [place] [phone] Other Specified Disorders Of Muscle (Primary [...] Total Score: 5 04/29/19 17 10:10 AM TELEGRAPH INSPECTOR documented as of this encounter Care Teams Bed Bug Exterminator Relationship Specialty Start Date End Date Elsewhere, Pcp PCP - General Internal Medicine 07/16/22 documented as of this encounter
== END 2023-10-08 16:30 | disposition home or self-care (01) ==
LOC: NFLDREF 16:30
PROVIDERS: PCP Family Medicine; Visit Provider Family Medicine
DX: F32.A Depression, unspecified (principal); E11.9 Type 2 diabetes mellitus without complications
CPT/HCPCS: 84443

== ENCOUNTER 2023-12-09 09:49 | Emergency (ER) | payer MEDICARE, BC, SELFPAY ==
[2023-12-09 09:53] VITALS: BP 139/59; PULSE 57; RESP 18; TEMP 36.2; O2SAT 99; BMI 36.9
--- NOTE | 2023-12-09 11:09 | CRLHL7_ITS ---
For Patients: As a result of the Century Cures Act, medical imaging exams and procedure reports are released immediately into your electronic medical record. You may view this report before your referring provider. If you have questions, please contact your health care provider. Indication: Constipation Technique: Abdomen 3 view. Comparison: CT abdomen and pelvis 06/26/2021. Findings: Bowel: Bowel pattern is normal. Large volume of stool throughout the colon.. Other: No sign of free air. No sign of soft tissue mass. No suspicious calcifications. Osseous structures are unremarkable for age. Impression: Large volume of stool throughout the colon. Dictated by Tammy Marquez MD @ 12/09/2023 12:02:09 PM (Electronically Signed)
--- NOTE | 2023-12-09 11:11 | ED_ITS ---
HPI - General Adult General Date Seen: 12/09/23 Chief complaint: Constipation Stated complaint: No BM for over 10 days Time Seen by Provider: 12/09/23 11:00 Source: patient Mode of arrival: ambulatory Limitations: no limitations History of Present Illness HPI narrative: Patient is a 68-year-old female who states she has not had a bowel movement since 11/28/2023. States she has had issues with constipation in the past and has been taking docusate since she believes the beginning of November. Does states she has some baseline memory issues. Today she tried using an enema and did not have any success and a bowel movement. Has not been having any pain is been eating and drinking without issues. Has had no associated nausea. She does feel like abdomen is slightly bloated. Denies fevers, chills, chest pain, shortness of breath, lightheadedness, dizziness, weakness, numbness. No other concerns noted. Related Data Home Medications ?Medication ?Instructions ?Recorded ?Confirmed Fish Oil 1 tab PO QDAY 10/17/21 11/25/23 zqiaptt-awkymxjya-hoyt tablet 1 tab PO .qd 10/17/21 11/25/23 coenzyme Q10 100 mg capsule 100 mg PO DAILY 10/17/21 11/25/23 ferrous fumarate-vitamin C 132 1 tab PO QDAY 10/17/21 11/25/23 mg-250 mg tablet ginkgo biloba 40 mg tablet 40 mg PO QDAY 10/17/21 11/25/23 pramipexole 0.125 mg tablet 0.5 mg PO DAILY 02/27/23 11/25/23 trazodone 100 mg tablet 250 mg PO HS 09/05/23 11/25/23 prednisolone acetate 1 % eye drp ophthalmic (eye) 09/08/23 11/25/23 drops,suspension doxepin 10 mg capsule 10 mg PO QPM 11/25/23 11/25/23 Previous Rx's ?Medication ?Instructions ?Recorded alcohol swabs (Alcohol Pads) 1 pad topical TID #200 ea 01/09/22 lancets #200 ea 01/19/22 Blood Glucose Meter #1 ea 07/30/22 venlafaxine 150 mg 150 mg PO QDAY #90 caps 08/14/22 capsule,extended release 24 hr venlafaxine 75 mg capsule,extended 75 mg PO DAILY #90 caps 08/14/22 release 24 hr valacyclovir 500 mg tablet 500 mg PO BID #6 tabs 03/12/23 pen needle,diabetic dual safty 30 #100 ea 09/12/23 gauge x 3/16 (BD AutoShield Duo Pen Needle) insulin glargine 100 unit/mL (3 45 unit (0.45 mL) subcut QDAY #15 09/15/23 mL) subcutaneous pen (Lantus mL Solostar U-100 Insulin) metformin 500 mg tablet 1,000 mg (2 x 500 mg) PO BIDWMEAL 10/01/23 #360 tabs pregabalin 100 mg capsule 100 mg PO QDAY #90 caps 10/01/23 pregabalin 150 mg capsule 150 mg PO BID #180 caps 10/01/23 blood-glucose meter (Contour Next #1 ea 11/04/23 Gen Meter kit) hydrochlorothiazide 25 mg tablet 25 mg PO QDAY #90 tabs 11/07/23 loratadine 10 mg capsule 10 mg PO DAILY PRN allergic 11/07/23 symptoms #90 caps blood sugar diagnostic (Contour #300 ea 11/12/23 Next Test Strips) oxycodone-acetaminophen 10 mg-325 1 tab PO BID PRN pain #45 tabs 12/08/23 mg tablet bisacodyl 5 mg tablet 5 mg PO QHS 10 days #2 tabs 12/09/23 magnesium citrate 300 ml PO ONCE constipation #296 mL 12/09/23 polyethylene glycol 3350 17 17 g PO BID #238 grams 12/09/23 gram/dose oral powder (Miralax) simethicone 125 mg capsule 125 mg PO ONCE #2 caps 12/09/23 Allergies Allergy/AdvReac Type Severity Reaction Status Date / Time mupirocin Allergy Unknown Verified 12/09/23 09:59 Review of Systems Status of ROS: Reports: 10 or more systems reviewed and unremarkable except as noted in History and below [facility] Medical History Sepsis ?A41.9 - Sepsis, unspecified organism (ICD-10) Surgical wound infection ?T81.49XA - Infection following a procedure, other surgical site, initial encounter (ICD-10) Yeast vaginitis ?B37.31 - Acute candidiasis of vulva and vagina (ICD-10) Itchy eyes ?R68.89 - Other general symptoms and signs (ICD-10) Lesion of nose ?J34.89 - Other specified disorders of nose and nasal sinuses (ICD-10) Urinary tract infection ?N39.0 - Urinary tract infection, site not specified (ICD-10) Hx of cold sores ?Z86.19 - Personal history of other infectious and parasitic diseases (ICD- 10) Fracture of distal fibula ?S82.839A - Other fracture of upper and lower end of unspecified fibula, initial encounter for closed fracture (ICD-10) Pelvic floor dysfunction in female ?M62.89 - Other specified disorders of muscle (ICD-10) Pain of soft tissue of extremity ?M79.609 - Pain in unspecified limb (ICD-10) Spinal stenosis of lumbar region ?M48.061 - Spinal stenosis, lumbar region without neurogenic claudication (ICD-10) Spinal stenosis of cervical region ?M48.02 - Spinal stenosis, cervical region (ICD-10) Restless legs syndrome ?G25.81 - Restless legs syndrome (ICD-10) Hypertension (04/13/09) ?I10 - Essential (primary) hypertension (ICD-10) Pulmonary embolism (05/04/09) ?I26.99 - Other pulmonary embolism without acute cor pulmonale (ICD-10) 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 ?G89.29 - Other chronic pain (ICD-10) Thyroid nodule ?E04.1 - Nontoxic single thyroid nodule (ICD-10) Obstructive sleep apnea treated with continuous positive airway pressure (CPAP) (12/26/08) ?G47.33 - Obstructive sleep apnea (adult) (pediatric) (ICD-10) ?Z99.89 - Dependence on other enabling machines and devices (ICD-10) Low back pain potentially associated with radiculopathy (05/12/12) ?M54.50 - Low back pain, unspecified (ICD-10) Type 2 diabetes mellitus ?E11.9 - Type 2 diabetes mellitus without complications (ICD-10) Tubular adenoma of colon ?D12.6 - Benign neoplasm of colon, unspecified (ICD-10) Trochanteric bursitis of left hip ?M70.62 - Trochanteric bursitis, left hip (ICD-10) Trigeminal neuralgia ?G50.0 - Trigeminal neuralgia (ICD-10) Rosacea (12/26/08) ?L71.9 - Rosacea, unspecified (ICD-10) Pulmonary embolism (04/2009) ?I26.99 - Other pulmonary embolism without acute cor pulmonale (ICD-10) Plantar fasciitis, bilateral ?M72.2 - Plantar fascial fibromatosis (ICD-10) Pain of left hip ?M25.552 - Pain in left hip (ICD-10) Obesity (12/26/08) ?E66.9 - Obesity, unspecified (ICD-10) Neuropathy of lower extremity ?G57.90 - Unspecified mononeuropathy of unspecified lower limb (ICD-10) Irritable bowel syndrome (12/26/08) ?K58.9 - Irritable bowel syndrome without diarrhea (ICD-10) Gastroesophageal reflux (12/26/08) ?K21.9 - Gastro-esophageal reflux disease without esophagitis (ICD-10) Fibromyalgia (12/26/08) ?M79.7 - Fibromyalgia (ICD-10) Depression (12/26/08) ?F32.A - Depression, unspecified (ICD-10) Constipation ?K59.00 - Constipation, unspecified (ICD-10) Chronic pain syndrome ?G89.4 - Chronic pain syndrome (ICD-10) Chronic insomnia ?F51.04 - Psychophysiologic insomnia (ICD-10) Acute lumbar radiculopathy ?M54.16 - Radiculopathy, lumbar region (ICD-10) Achilles tendinitis of both lower extremities ?M76.61 - Achilles tendinitis, right leg (ICD-10) ?M76.62 - Achilles tendinitis, left leg (ICD-10) Surgical History Hx of cervical spine surgery ?Z98.890 - Other specified postprocedural states (ICD-10) History of arthroscopy of right knee (12/2004) ?Z98.890 - Other specified postprocedural states (ICD-10) H/O arthroscopy of left knee (1997) ?Z98.890 - Other specified postprocedural states (ICD-10) 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) ?Z96.652 - Presence of left artificial knee joint (ICD-10) History of nasal septoplasty ?Z98.890 - Other specified postprocedural states (ICD-10) H/O dilation and curettage ?Z98.890 - Other specified postprocedural states (ICD-10) History of total right knee replacement (12/18/11) ?Z96.651 - Presence of right artificial knee joint (ICD-10) Status post appendectomy ?Z90.49 - Acquired absence of other specified parts of digestive tract (ICD- 10) History of tonsillectomy and adenoidectomy (12/26/08) ?Z90.89 - Acquired absence of other organs (ICD-10) History of hysteroscopy (12/26/08) ?Z98.890 - Other specified postprocedural states (ICD-10) History of discectomy (05/16/05) ?Z98.890 - Other specified postprocedural states (ICD-10) Family History Brother Alcohol dependence Father Prostate cancer Diabetes Coronary artery disease, Onset Age: 80 High blood pressure Aunt Breast cancer Social History Narrative: Her daughter, Asha, is helping her out at home after her recent surgery and stay at [facility]. Smoked 1ppd for 15 years, quit in 1986. SOCIAL HISTORY: as of February 2013. History of alcoholism but she has been sober for 36 years. Very involved in alcoholics anonymous meetings. Basically disabled. Originally from [place]. Not very physically active given her ongoing physical issues but she has been going for short walks sporadically in the last month or so. HABITS: No tobacco alcohol or recreational drug use. What is your current living situation?: I presently have a place to live Problems where you live: no known problems In the past 12 months, utilities in danger of being shut off: no In past 12 months, lack of transportation kept you from medical appts, meetings, work, or getting things needed for daily living: no In the past 12 mos, have been you worried that your food would run out before you had money to buy more?: never true In the past 12 mos, the food you bought just didn't last and you didn't have money to buy more?: never true Highest level of school completed/degree received: Master's degree Smoking Status: Former smoker What tobacco products do you use: cigarettes Years smoked: 16 Smoking quit date/years: >15 years ago Do you use any of these nicotine containing products: None Second hand tobacco smoke exposure: No How often do you have a drink containing alcohol: never How often do you have six or more drinks on one occasion: Never AUDIT-C Alcohol total score: 0 Non-prescribed substance use: denies use Caffeine: Yes How often does anyone, including family, friends and others, physically hurt you : never How often does anyone, including family, friends and others, insult or talk down to you: never How often does anyone, including family, friends and others, threaten you with harm: never How often does anyone, including family, friends and others, scream or curse at you: never Little interest or pleasure in doing things: not at all Feeling down, depressed, or hopeless: several days service: No Exam Narrative: Exam Narrative: Const: Well-nourished, Well-developed, in no distress Eyes: PERRL, no conjunctival injection, and symmetrical lids HENT: Atraumatic external nose and ears. Moist mucous membranes. Neck: Symmetric, trachea midline, No thyromegaly. CVS: RRR, No murmurs or gallops. Peripheral pulses 2+ and equal in all extremities RESP: Unlabored respiratory effort. Clear to auscultation bilaterally. GI: Nontender/Nondistended, No rebound or guarding. MSK:Extremities w/o deformity, Normal Active ROM Skin: Warm, Dry. No rashes or lesions. Neuro: Normal Muscle tone, No focal neurological deficits. Psych: Awake, Alert, & Oriented x3. Appropriate mood and affect. Const: Vital Signs, click to edit/add: Vital Signs - 24 hr 12/09/23 09:53 Temperature 97.1 F L Pulse Rate [Right Pulse Oximeter] 57 L Respiratory Rate 18 Blood Pressure [Ri ght Upper Arm] 139/59 L Pulse Oximetry 99 Course Vital Signs Vital signs: Initial Vital Signs Temperature 97.1 F L 12/09/23 09:53 Temperature Source Temporal Artery Scan 12/09/23 09:53 Pulse Rate 57 L 12/09/23 09:53 Pulse Rhythm Regular 12/09/23 09:53 Respiratory Rate 18 12/09/23 09:53 Blood Pressure 139/59 L 12/09/23 09:53 Blood Pressure Mean 85 12/09/23 09:53 Blood Pressure Position Sitting 12/09/23 09:53 Pulse Oximetry 99 12/09/23 09:53 Vital Signs Temperature 97.1 F L 12/09/23 09:53 Pulse Rate 57 L 12/09/23 09:53 Respiratory Rate 18 12/09/23 09:53 Blood Pressure 139/59 L 12/09/23 09:53 Pulse Oximetry 99 12/09/23 09:53 Temperature 97.1 F L 12/09/23 09:53 Pulse Rate 57 L 12/09/23 09:53 Respiratory Rate 18 12/09/23 09:53 Blood Pressure 139/59 L 12/09/23 09:53 Pulse Oximetry 99 12/09/23 09:53 Medications Administered Medications: Discontinued Medications Generic Name Dose Route Start Last Admin Trade Name Freq PRN Reason Stop Dose Admin Docusate Sodium/Benzocaine 5 ml 12/09/23 12:10 12/09/23 12:55 Docusate Sodium/Benzocaine 5 Ml Enema SD 12/09/23 12:11 5 ml ONCE ONE Administration Medical Decision Making MDM Narrative Medical decision making narrative: Patient is a 68-year-old female presenting for constipation. She is not having any symptoms at this time but will do an x-ray to look for constipation and signs of a fecal impaction. This was done reviewed myself the radiologist and she does have a large colonic stool burden but no obvious signs of and impaction. An enema was done and she was unable to have a bowel movement. Due to this I will give her information for bowel cleanout regiment. Also informed her to return if she does start developing any abdominal symptoms. She is agreeable to this plan. Imaging Data Abdominal x-ray: Attestation: I have reviewed the pertinent imaging results. Radiologist's impression: Large volume of stool throughout the colon. Dictated by Tammy Marquez MD @ 12/09/2023 12:02:09 PM Discharge Plan Discharge Clinical Impression: Constipation Qualifiers: Constipation type: unspecified constipation type Qualified Code(s): K59.00 - Constipation, unspecified Patient Disposition: Home, Self-Care Condition: Stable Instructions: Constipation (DC) Additional Instructions: A bowel cleanout regiment information is provided. The medications ?2 - Bisacodyl tablets (Dulcolax? laxative NOT Dulcolax? stool softener) each tablet contains 5 mg of bisacodyl ?1 - 8.3 ounce bottle of Polyethylene Glycol (PEG) 3350 Powder (MiraLAX, SmoothLAX, ClearLAX or generic equivalent) 64 oz. Gatorade? (No red colored flavors) Regular Gatorade?, Gatorade G2?, Powerade?, Powerade Zero?, Pedialyte or Propel?, Liquid IV, and other electrolyte beverages are acceptable. Red flavors are not allowed; all other colors (yellow, green, orange, purple, blue) are okay. It is also okay to buy two 2.12 oz packets of powdered Gatorade that can be mixed with water to a total volume of 64 oz of liquid. ? Simethicone 80 mg or 125 mg tablets, chewables, or softgels -Simethicone is available over the counter in a variety of forms and dosages. Capsules, chewable tablets, and liquid are all acceptable forms. - If you are buying 125 mg tablets, purchase enough simethicone to take 2 tablets. -If you are buying 80 mg tablets, purchase enough to take 3 tablets. ?1 - 10 oz. bottle Magnesium Citrate (No red colored flavors) It is also okay for you to use a 0.5 ounce package of powdered magnesium citrate (17 grams) mixed with 10 ounces of water. ?Tomorrow begin Clear Liquid Diet (clear liquids include things you can see th rough). Examples of a clear liquid diet include: water, clear broth or bouillon (gluten free options available), Gatorade, Pedialyte or Powerade, carbonated and non-carbonated soft drinks (Sprite, 7-Up, Gingerale), strained fruit juices without pulp (apple, white grape, white cranberry), Jell-O, popsicles, and up to one cup of black coffee or tea (no milk or cream) each day. The following are not allowed on a clear liquid diet: red liquids, alcoholic beverages, dairy products, protein shakes, cream broths, juice with pulp, products containing oil and chewing tobacco. For additional details on following a clear liquid diet, please see [email or web address] ?Take 2 Bisacodyl (Dulcolax) tablets ?4-6 hour later Drink Miralax ? Gatorade preparation Mix 1 bottle of Miralax with 64 oz. of Gatorade in a large pitcher. Drink 1 - 8 oz. glass of the Miralax/Gatorade solution. Continue drinking 1 - 8 oz. glass every 15 minutes thereafter until the mixture is gone With the last glass of Miralax ? Gatorade solution: take 240-250 mg of simethicone. -Simethicone is available over the counter in a variety of forms and dosages. Capsules, chewable tablets, and liquid are all acceptable forms. -Take enough of the medication to total between 240-250 mg. For example, if you have -125 mg chewable tablets, take 2 tablets to total 250 mg. -80 mg tablets, take 3 tablets to total 240 mg. ?The next day take 10 ounces of magnesium citrate Prescriptions: New magnesium citrate Solution 300 ml PO ONCE Qty: 296 0RF bisacodyl 5 mg tablet 5 mg PO QHS 10 Days Qty: 2 0RF polyethylene glycol 3350 [Miralax] 17 gram/dose powder 17 g PO BID Qty: 238 0RF simethicone 125 mg capsule 125 mg PO ONCE Qty: 2 0RF No Action coenzyme Q10 100 mg capsule 100 mg PO DAILY [id number] Tablet 1 tab PO .qd Fish Oil 1 tab PO QDAY ginkgo biloba 40 mg tablet 40 mg PO QDAY Rx Instructions: give with meal/snack ferrous fumarate-vitamin C 132-250 mg tablet 1 tab PO QDAY alcohol swabs [Alcohol Pads] Pads, Medicated 1 pad topical TID Qty: 200 11RF venlafaxine 75 mg capsule,extended release 24hr 75 mg PO DAILY Qty: 90 3RF Rx Instructions: take with 150mg for total dose of 225mg daily. venlafaxine 150 mg capsule,extended release 24hr 150 mg PO QDAY Qty: 90 3RF Rx Instructions: Take along with 75 mg capsule once per day pramipexole 0.125 mg tablet 0.5 mg PO DAILY Rx Instructions: TAKES 3 IN THE EVENING AND 2 AT BEDTIME prednisolone acetate 1 % drops,suspension ophthalmic (eye) (DME) Blood Glucose Meter Misc See Rx Instructions .Route Qty: 1 0RF Rx Instructions: As directed trazodone 100 mg tablet 250 mg PO HS doxepin 10 mg capsule 10 mg PO QPM (DME) lancets Misc See Rx Instructions .Route Qty: 200 11RF Rx Instructions: As directed, testing TID valacyclovir 500 mg tablet 500 mg PO BID Qty: 6 0RF Rx Instructions: Take 1 tab by mouth BID x3 days as needed (DME) BD AutoShield Duo Pen Needle 30 gauge x 3/16 needle See Rx Instructions .Route Qty: 100 4RF Rx Instructions: As directed, testing TID insulin glargine [Lantus Solostar U-100 Insulin] 100 unit/mL (3 mL) insulin pen 45 unit subcut QDAY Qty: 15 1RF pregabalin 100 mg capsule 100 mg PO QDAY Qty: 90 1RF Rx Instructions: Afternoon dose metformin 500 mg tablet 1,000 mg PO BIDWMEAL Qty: 360 2RF pregabalin 150 mg capsule 150 mg PO BID Qty: 180 1RF Rx Instructions: in addition to 100 mg daily (DME) blood-glucose meter [Contour Next Gen Meter] Kit See Rx Instructions .Route Qty: 1 1RF Rx Instructions: test twice a day loratadine 10 mg capsule 10 mg PO DAILY PRN (Reason: allergic symptoms) Qty: 90 0RF hydrochlorothiazide 25 mg tablet 25 mg PO QDAY Qty: 90 0RF (DME) Contour Next Test Strips Strip See Rx Instructions .Route Qty: 300 0RF Rx Instructions: Use to test blood sugar TID oxycodone-acetaminophen 10-325 mg tablet 1 tab PO BID PRN (Reason: pain) Qty: 45 0RF Follow Up/Referrals: Anoop Emery MD [Primary Care Provider] - Stand Alone Forms: [employer] Info Instructions
--- OUTSIDE RECORDS SUMMARY | 2023-12-09 11:51 | XMS_ITS | Clinical Summary ---
Author Organization [facility] Address [address] [place] [address] Care Team Providers Care Pressure Steamer Tender Name Role Phone Elsewhere, Pcp Primary Care Provider Unavailabl e Source Comments Patient records contain information from all sites at [facility]. For routine questions regarding patient records, call [phone] during business hours, M-F 8:00 AM - 5:00 PM Central Time. Record requests for emergency care only can be directed to [phone] at any time.[facility] Allergies Active Allergy Reactions Criticality Noted [...] (11/14/2021): Added automatically from request for surgery [id number] Pain Neuropathic 04/11/2020 Constipation 09/23/2017 Prolapse Vaginal [...] 01/28/2017 Depression Major Recurrent Partial Remission 01/2015 Encounters Date Type Department Care Team Description 10/14/2023 Clinical Communication Department of Physical Medicine and Rehabilitation in [place], [place] [address] [place] [address] Amor Garrett M.D. Nurse Assessment from Last 3 Months Immunizations Name Administration Dates Next Due H1N1 All Forms 02/13/2009,02/06/2009 HZV (ZOSTAVAX) 05/13/2014 HepA Adult 07/23/2006 Influenza Split 12/17/2010 Influenza TIV (IM) 12/30/2006 Influenza, Seasonal, Injectable 12/30/2006 Influenza, Unspecified 01/14/2009,11/30/2008, PPSV23 07/02/2021 SARS-COV-2 (COVID-19) - CUBA LUNDBERG (J&J)(Discontinued) 05/19/2020 Td Preservative Free (TENIVA C, DECAVAC) 07/23/2006 Td, (Adult) Unspecified 07/23/2006 Tdap 06/21/2014 influenza trivalent vaccine (6 months and older)(PF) 01/05/2014,02/15/2013,12/21/2011,2010,01/01/2010,11/30/2008 influenza vaccine quad (FLUZONE/FLUARIX) (6 months and older)(PF) 12/12/2016,01/11/2016,01/10/2015 Family History Medical History Relation Name Comments Alcohol abuse Brother True Depression Brother True Prostate cancer Brother True Coronary artery disease Father Sunil dayl Diabetes Father Sunil Ha Hypertension Father Sunil Ha Obesity Father Sunil Ha Prostate cancer Father Sunil Ha Breast cancer Mother Swathi prenbrooklynn Diabetes Mother Swathi prenbrooklynn Hypertension Mother Swathi prenbrooklynn Obesity Mother Swathi prenbrooklynn Ovarian cancer Paternal Grandmother Sintia Ha Relation Name Status Comments Brother True Father Sunil Ledesma Prenbrooklynn Mother Swathi prenbrooklynn Paternal Grandmother Sintia Ha Social History Tobacco [...] often do you attend chur ch or gnosticism services? Never 07/18/2022 Do you belong to any clubs o r organizations such as methodist groups, unions, fraternal [...] and heating? Not hard at all 07/18/2022 [facility] [place] of Occupat ional Health - Occupational Stress [...] or slept in a correction (including now)? No 07/18/2022 Nutrition Answer Date [...] 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, TERMINAL OPERATIONS SUPERVISOR, ODILIA) 07/15/2020 Sex and Gender Information Value [...] elsewhere), 07/16/2011 (Performed elsewhere) Hemoglobin A1C 03/20/2022 12/18/2021, 01/07/2019 Office Visit for Blood Press ure Check / Re-check 12/21/2022 12/21/2021 Creatinine Level (Kidney Fun ction Test) 01/03/2023 01/03/2022, 12/24/2021, 12/18/2021, Additional history exists Potassium Level 01/03/2023 01/03/2022, 12/15, 12/18/2021, Additional history exists Sodium Level 01/03/2023 01/03/2022, 12/15, 12/24/2021, Additional history exists Fall Risk Screen (Annual) 03/17/2023 COVID-19 Vaccine (6 - 2023-2 5 season) 2023 04/29/2023, 12/26/2022, 12/11/2021, Additional history exists Influenza Vaccine (#1) 2023 , 12/20/2021, 01/03/2021, Additional history exists DTaP,Tdap,and Td Vaccines (2 - Td or Tdap) 06/21/2024 06/21/2014, 07/23/2006, 07/23/2006 Cervical Cancer Screening Discontinued 2016 (Performed elsewhere), 07/16/2011 (Performed elsewhere) Pneumococcal vaccine (65+ years) Completed 07/03/19, 09/22/2019 Bone Density Scan (Osteoporo sis Screen) Discontinued 12/18/2021 Medical Devices Implanted Type Area Inbound Sales Advisor Device Identifier Shelf Expiration Date Model / Serial / Lot Self Drilling Cortex Screw 6mm Implanted:Qty: 5 on 12/24/2021 by Buster Herrera M.D. at [facility] Hardware e.g. pins/screws /rods N/A: Posterior Cervical Depuy Synthes 401.136. 99 / / Self Drilling Cortex Screw 8mm Implanted:Qty: 6 on 12/24/2021 by Buster Herrera M.D. at [facility] Hardware e.g. pins/screws /rods N/A: Posterior Cervical Depuy Synthes 401.13.8 99 / / Miniplate Double Bend 10mm Spacing Implanted:Qty: 3 on 12/24/2021 by Buster Herrera M.D. at [facility] Hardware e.g. pins/screws /rods N/A: Posterior Cervical Depuy Synthes 443.180 / / J J Sig Tib Poly Stab #4 8.0m - Gallo [id number] Implanted:Qty: 1 on 12/18/2011 Knee Implant Other/Legacy - See Implant Description [employer] Description:Device Manufactu rer - J [employer]. Body Location - Other. Right. Device Status Text - [id number] [id number]. J J Patella Rev Round 35m - Gallo [id number] Implanted:Qty: 1 on 12/18/2011 Knee Implant Other/Legacy - See Implant Description [employer] Description:Device Manufactu rer - J [employer]. Body Location - Other. Right. Device Status Text - [id number] [id number]. Sigma Post Stab.W Lug Fem Sz 5 Rt - Gallo [id number] Implanted:Qty: 1 on 12/18/2011 Knee Implant Other/Legacy - See Implant Description [employer] Description:Device Manufactu rer - J [employer]. Body Location - Other. Right. Device Status Text - [id number] [id number]. Cement Bone Small - Gallo [id number] Implanted:Qty: 1 on 12/18/2011 Misc Other [place] Description:Device Manufactu rer - Shanna Mariama.. Device Status Text - [id number]. Cement Bone Large - Gallo [id number] Implanted:Qty: 1 on 12/18/2011 Misc Other [place] Description:Device Manufactu rer - Shanna Mariama.. Device [...] Metabolic Panel (12/24/2021 8:41 PM CDT) Pathologist [facility] Potassium, S 4.1 3.6 - 5.2 mmol/L [...] M.D. LAB BLOOD ADD-ON Performing Organization Address City/[facility]/ZIP Co de Phone Number [facility] [address] [facility] [address] [place] [address] * Sodium, B (12/24/2021 2:57 PM CDT) Sodium, B 135 135 - 145 mmol/L 12/24/2021 2:58 PM CDT [facility] Blood (Blood, Arterial Line) 12/24/2021 2:57 PM CDT 12/24/2021 2:57 PM CDT Milton Davis M.D. LAB BLOOD NON ADD- ON [facility] [address] [place] [address], [facility] [address] [place] [address] * (ABNORMAL) Hemoglobin A1c (12/18/2021 12:28 PM [...] CDT Buster Herrera M.D. LAB BLOOD ADD-ON [facility] [address] [place] [address], [facility] [address] [place] [address] from Last 3 Months or Most Recently Relevant to Health Maintenance Advance Directives For more information, please contact: [phone] Documents on File Type Date Recorded Patient Glass Lathe Operator Expl anation Advance Directives 12/17/2011 12:00 AM Leg acy document. See document viewer. * Full Code (Latest Code Status on File) Date Activated Date Inactivated Comments 12/24/2021 6:31 PM 12/28/2021 5:21 PM Question Answer Comments Full Code: Discussed Care Teams Pressure Steamer Tender Relationship Specialty Start Date End Date Elsewhere, Pcp PCP - General Internal Medicine 07/16/22
--- OUTSIDE RECORDS SUMMARY | 2023-12-09 11:51 | XMS_ITS | Encounter Summary ---
Author Organization [facility] Address [address] [place] [address] Care Team Providers Care Transitions Manager Name Role Phone Denise Harris MD Primary Care Provider [phone] Anoop Emery MD Unavailable [phone] Inez Peck MD Unavailable [phone] Inez Peck MD Unavailable [phone] Encounter Details Date Type Department Care Team (Late st Contact Info) Description 10/31/[address] [facility] [address] [place] [address] Inez Peck MD [address] [facility] [address] [place] [address] Social History Tobacco Use Types [...] on filedocumented in this encounter Care Teams Transitions Manager Relationship Specialty Start Date End Date Denise Harris MD [address] [address] PCP - General Internal Medicine 01/17/15 Anoop Emery MD [facility] [address] [place] [address] Referring Physician Family Medicine 09/15/20 Inez Peck MD [address] [place] [address] Urology 09/15/20 Inez Peck MD [address] [place] [id number] Assigned Surgical Provider 11/12/20 05/10/22 documented as of this encounter
--- OUTSIDE RECORDS SUMMARY | 2023-12-09 11:51 | XMS_ITS ---
Author Organization [facility] Address [address] [place] [address] Care Team Providers Care Soft Metals Hand Engraver Name Role Phone Unavailable Unavailable Unavailable Surgery Details Not on file Complications Check Surgery Details section. Procedure Estimated Blood Loss Check Surgery Details section. Procedure Findings Check Surgery Details section. Procedure Specimens Taken Check Surgery Details section.
--- OUTSIDE RECORDS SUMMARY | 2023-12-09 11:51 | XMS_ITS | Clinical Summary ---
Author Organization [facility] Address [address], [place] [address] Care Team Providers Care Sample Worker Name Role Phone Thalia Barron PA-C Primary Care Provider Un available Source Comments You are receiving this document as you are listed as the primary care provider,follow-up provider, or the patient has been referred to you for consultation.This is in compliance with the Medicare and[facility] EHR Incentive Program,which states Providers who transition their patient to another setting of careor provider of care or refers their patient to another provider of care shouldprovide summary care record for each transition of care or referral. [employer] Allergies Active Allergy Reactions Criticality Noted Date [...] Instr:for eczema on hand 15 04/26/2009 Active [place]-3 Fatty Acids ([facility] FISH OIL) 1200 MG [...] 12 04/26/2009 Active nystatin-triamcinolo ne (AKA MYCOLOG-II) 617797-6.1 UNIT/GM-% cream Apply 1 Applicatorful topically 3 [...] Cervical spine pain 10/15/2018 Sleep apnea 08/21/2002 Overview (11/06/2016): Obstructive Sleep Apnea Hypopnea Immunizations Name Administration [...] Comments Blood Pressure 118/80 05/01/2009 7:20 AM COMMUNITY SUPPORT WORKER C: Dynamap Pulse 102 05/01/2009 7:20 AM COMMUNITY SUPPORT WORKER Temperature 36.7 ??C (98.1 ??F) 05/01/2009 7 :20 AM COMMUNITY SUPPORT WORKER ORAL C: 98.1 F Respiratory Rate 16 05/01/2009 7:20 AM COMMUNITY SUPPORT WORKER Oxygen Saturation 96% 05/01/2009 7:2 1 AM COMMUNITY SUPPORT WORKER Inhaled Oxygen Concentration - - Weight [...] 09/21/2020 09/22/2019 COVID-19 Vaccine (2 - season) 2023 05/19/2020 Influenza (#1) 2023 01/07/2019, 12/15, 12/30/2017, Additional history exists DTaP/Tdap/Td (2 - Tdap) 06/21/2024 06/22/19 15, 07/23/2006, 07/23/2006 RSV (1 - 1-dose 75+ series) 2028 HepA Aged Out 07/23/2006, 07/23/2006 No lo [...] age to complete this topic Care Teams Sample Worker Relationship Specialty Start Date End Date Thalia Barron PA-C PCP - General Physician Grain Trader 10/06/18
--- OUTSIDE RECORDS SUMMARY | 2023-12-09 11:51 | XMS_ITS | Referral Summary ---
Author Organization [facility] Address [address] [place] [address] Care Team Providers Care Web Knitter Name Role Phone Denise Harris MD Primary Care Provider Anoop Emery MD Unavailable [phone] Inez Peck MD Unavailable [phone] Allergies Active Allergy Reactions Criticality Noted Date [...] mg by mouth 3 times daily Active [place]-3 Fatty Acids (OMEGA 3 PO) Take by [...] of Treatment Not on file Care Teams Web Knitter Relationship Specialty Start Date End Date Denise Harris MD [facility] [address] [place] [address] PCP - General Internal Medicine 01/17/15 Anoop Emery MD [facility] [address] [place] [address] Referring Physician Family Medicine 09/15/20 Inez Peck MD [address] [place] [id number] Urology 09/15/20
--- OUTSIDE RECORDS SUMMARY | 2023-12-09 11:51 | XMS_ITS | Referral Summary ---
Author Organization [facility] Address [address] [place] [address] Care Team Providers Care Charcoal Burner Beehive Kiln Name Role Phone Elsewhere, Pcp Primary Care Provider Unavailabl e Source Comments Patient records contain information from all sites at [facility]. For routine questions regarding patient records, call [phone] during business hours, M-F 8:00 AM - 5:00 PM Central Time. Record requests for emergency care only can be directed to [phone] at any time.[facility] Encounters Date Type Department Care Team Description 10/14/2023 Clinical Communication Department of Physical Medicine and Rehabilitation in [place], [place] [address] [place] [address] Amor Garrett M.D. Nurse Assessment from Last 3 Months Allergies Active Allergy Reactions Criticality Noted Date [...] (11/14/2021): Added automatically from request for surgery [id number] Pain Neuropathic 04/11/2020 Constipation 09/23/2017 Prolapse Vaginal [...] often do you attend chur ch or restorationist services? Never 07/18/2022 Do you belong to any clubs o r organizations such as mu-ism groups, unions, fraternal [...] and heating? Not hard at all 07/18/2022 [facility] of Occupat ional Health - Occupational [...] or slept in a fdc (including now)? No 07/18/2022 Nutrition Answer Date [...] 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, HEALTH AND FITNESS PROFESSOR, ODILIA) 07/15/2020 Sex and Gender Information Value [...] on file Medical Devices Implanted Type Area Paint Pourer Device Identifier Shelf Expiration Date Model / Serial / Lot Self Drilling Cortex Screw 6mm Implanted:Qty: 5 on 12/24/2021 by Buster Herrera M.D. at [facility] Hardware e.g. pins/screws /rods N/A: Posterior Cervical Depuy Synthes 401.136. 99 / / Self Drilling Cortex Screw 8mm Implanted:Qty: 6 on 12/24/2021 by Buster Herrera M.D. at [facility] Hardware e.g. pins/screws /rods N/A: Posterior Cervical Depuy Synthes 401.13.8 99 / / Miniplate Double Bend 10mm Spacing Implanted:Qty: 3 on 12/24/2021 by Buster Herrera M.D. at [facility] Hardware e.g. pins/screws /rods N/A: Posterior Cervical Depuy Synthes 443.180 / / J J Sig Tib Poly Stab #4 8.0m - Gallo [id number] Implanted:Qty: 1 on 12/18/2011 Knee Implant Other/Legacy - See Implant Description [employer] Description:Device Manufactu rer - J [employer] J [employer]. Body Location - Other. Right. Device Status Text - [id number] [id number]. J J Patella Rev Round 35m - Gallo [id number] Implanted:Qty: 1 on 12/18/2011 Knee Implant Other/Legacy - See Implant Description [employer] Description:Device Manufactu rer - [employer]. Body Location - Other. Right. Device Status Text - [id number] [id number]. Sigma Post Stab.W Lug Fem Sz 5 Rt - Gallo [id number] Implanted:Qty: 1 on 12/18/2011 Knee Implant Other/Legacy - See Implant Description [employer] Description:Device Manufactu rer - J [employer]. Body Location - Other. Right. Device Status Text - [id number] [id number]. Cement Bone Small - Gallo [id number] Implanted:Qty: 1 on 12/18/2011 [facility] Other [place] Description:Device Manufactu rer - Shanna Mariama.. Device Status Text - [id number]. Cement Bone Large - Gallo [id number] Implanted:Qty: 1 on 12/18/2011 [facility] Other [place] Description:Device Manufactu rer - Shanna [...] Basic Metabolic Panel (12/24/2021 8:41 PM CDT) [facility] Potassium, S 4.1 3.6 - 5.2 mmol/L [...] M.D. LAB BLOOD ADD-ON Performing Organization Address City/[facility] Co de Phone Number [facility] [address] [place], [place] [id number] [place] [address] [facility]TFroedtert [facility] [address] [place] [address] * Sodium, B (12/24/2021 2:57 PM CDT) Sodium, B 135 135 - 145 mmol/L 12/24/2021 2:[address] [facility] Blood (Blood, Arterial Line) 12/24/2021 2:57 PM CDT 12/24/2021 2:57 PM CDT Milton Davis M.D. LAB BLOOD NON ADD- ON Performing Organization Address [facility] Co de Phone Number [facility] [address] [place] [address], [facility] [address] [place] [address] * (ABNORMAL) Hemoglobin A1c (12/18/2021 12:28 PM [...] CDT Buster Herrera M.D. LAB BLOOD ADD-ON [facility] [address] [place] [address], [place] DTL [facility] [address] [place] [address] from Last 3 Months or Most Recently Relevant to Health Maintenance Advance Directives For more information, please contact: [phone] Documents on File Type Date Recorded Patient Hotel Receptionist Expl anation Advance Directives 12/17/2011 12:00 AM Leg acy document. See document viewer. * Full Code (Latest Code Status on File) Date Activated Date Inactivated Comments 12/24/2021 6:31 PM 12/28/2021 5:21 PM Question Answer Comments Full Code: Discussed Care Teams Charcoal Burner Beehive Kiln Relationship Specialty Start Date End Date Elsewhere, Pcp PCP - General Internal Medicine 07/16/22
--- OUTSIDE RECORDS SUMMARY | 2023-12-09 11:51 | XMS_ITS | Clinical Summary ---
Author Organization [facility] Address [address] [place] [address] Care Team Providers Care Senior Information Systems Architect Name Role Phone Denise Harris MD Primary Care Provider [phone] Anoop Emery MD Unavailable [phone] Inez Peck MD Unavailable [phone] Allergies Active Allergy Reactions Criticality Noted Date [...] mg by mouth 3 times daily Active [place]-3 Fatty Acids (OMEGA 3 PO) Take by [...] of Treatment Not on file Care Teams Senior Information Systems Architect Relationship Specialty Start Date End Date Denise Harris MD [facility] [address] [place] [address] PCP - General Internal Medicine 01/17/15 Anoop Emery MD [facility] [address] [place] [address] Referring Physician Family Medicine 09/15/20 Inez Peck MD [address] [place] [id number] Urology 09/15/20
--- OUTSIDE RECORDS SUMMARY | 2023-12-09 11:51 | XMS_ITS | Clinical Summary ---
Author Organization [employer] [facility] Address [place], [place] [address] Care Team Providers Care Audiology Doctor Name Role Phone Anoop Emery MD Primary Care Provider [phone] Allergies Active Allergy Reactions Criticality Noted Date [...] nasal solution (FLONASE)Indicati ons:Seasonal allergies Inhale 1 [place] to both nostrils two times daily. 12/28/2021 [...] daily if needed. 12/28/2021 Active fish,bora,flax oils-om3,6,9no1 ([place] 3-6-9) 1,200 mg cap Take 1 capsule. 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 Overview (12/30/2006): SOBER SINCE 1985 Major depressive disorder, recurrent, moderate 0 07/14/2006 Encounters Date Type Department Care Team Description 10/06/2023 Lab Requisition [facility] [phone] Dionicio Galo MD from Last 3 Months [...] history exists COVID-19 vaccine series ( season) 2023 12/11/2021, 02/07/2021, 05/19/2020 Influenza for age 65+ 11/16/2023 12/20/2021 , 01/03/2021, 01/07/2019, Additional history exists Lipids for age 45-75 12/09/2023 12/08/2018 Tetanus booster 06/21/2024 06/21/2014, 07/23/2006 Tdap Completed 06/21/2014 Hepatitis C screening for ag e 18-79 Completed 01/07/2019 Pneumococcal series for age 65+ Completed 2, 09/22/2019 Procedures Procedure Name Priority Date/Time Associated Diagnosis Comments LAB TRACKING EVENT Routine 10/06/2023 2: 30 PM CDT PATH FNA CYTOLOGY ASP CYTOLOGY Routine 10/06/2023 [...] Recently Relevant to Health Maintenance Results * LAB TRACKING EVENT (10/06/2023 2:30 PM CDT) Other (Other) Client Collect / Unknown 10/06/2023 2:30 PM CDT 10/06/2023 9:51 PM CDT Dionicio Galo MD LAB BILL ONLY Performing Organization Address City/State/[facility] Co de Phone Number [facility] [address] [place] [address], * PATH FNA CYTOLOGY ASP CYTOLOGY (10/06/2023 2:30 PM CDT) Case Report Medical Cytology Report ? Case: [id number] ? Authorizing Provider: ??Dionicio Galo MD ?Collected: ? 10/06/2023 1430 ? Ordering Location: ? [facility] ?Received: ?10/07/2023 0735 ? Pathologist: ? Jenifer Fink MD ? Specimens: ?? A) - Right Mid Thyroid, midportion ? B) - Right Superior Thyroid, upper pole ? 10/07/2023 12:49 PM CDT [facility] Final Diagnosis A) THYROID, RIGHT MID, ULTRASOUND GUIDED FINE NEEDLE ASPIRATION: 1. Benign thyroid nodule 2. Negative for malignancy ?? 3. See comment B) THYROID, RIGHT SUPERIOR, ULTRASOUND GUIDED FINE NEEDLE ASPIRATION: 1. Benign thyroid nodule 2. Negative for malignancy 3. See comment 10/07/2023 12:49 PM T [facility] Comment A,B) The risk of malignancy in the follow-up of lesions with this cytologic appearance is low (0-3%). Clinical and radiologic correlation is advised, with repeat sampling recommended for any suspicious or enlarging lesion at this site. 10/07/2023 12:49 PM CDT [facility] Clinical Information Ms. Adames is a 68 y.o. female with two TR4, 1.6 and 1.9 c right thyroid nodules. 10/07/2023 12:49 PM CDT [facility] Gross Description A) Received identified as [...] stained ThinPrep slide 10/07/2023 12:49 PM CDT [facility] Adequacy Assessment 10/07/2023 12:49 PM CDT [facility] Microscopic Description A) Specimen adequacy: Low but adequate cellularity for interpretation. B) Specimen adequacy: Adequate for interpretation. All slides were reviewed. The microscopic appearance substantiates the diagnosis. 10/07/2023 12:49 PM CDT [facility] Additional Information Cytology is screened at [facility] - [address] [address] and [facility] - [address] [place] [address] and [facility] - [address] [place] [address] Interpreted at [facility] - [address] [address] 10/07/2023 12:49 PM CDT [facility] Aspirate (Right Mid Thyroid) 10/06/2023 2:30 PM CDT 10/07/2023 7:35 AM CDT Specimen obtained by aspiration (specimen) (Right Superior Thyroid) 10/06/2023 2:30 PM CDT 10/07/2023 7:35 AM CDT Dionicio Galo MD PATHOLOGY/CYTOLOGY [facility] [address] [place] [address], * ANTI HCV (01/07/2019 1:40 PM CDT) HEPATITIS C ANTIBODY Non-React shandra Non-React shandra 01/07/2019 8:28 PM CDT [facility] Comment:Antibodies to HCV no t detected; does not exclude the possibility of exposure to HCV. Blood BLOOD SPECIMEN / Unknown Venipuncture / Unknown 01/07/2019 1:40 PM CDT 01/07/2019 1:47 PM CDT Thalia COMBS SEND OUTS [facility] [address] [place] [address], * (ABNORMAL) LIPID PANEL W REFLEX MEASURED LDL (12/08/2018 4:10 PM CDT) CHOLESTEROL,TOTAL 213(H) 100 - 199 mg/dL 12/08/2018 8:47 PM CDT [facility] TRIGLYCERIDES 249(H) <150 mg/dL 12/08/2018 8:47 PM CDT [facility] HDL CHOLESTEROL 49 >40 mg/dL 9 8:47 PM CDT [facility] NON-HDL CHOLESTEROL 164(H) <145 mg/dl 12/08/2018 8:47 PM CDT [facility] CHOL/HDL RATIO 4.35 <4.50 12/08/2018 8:47 PM CDT [facility] LDL CHOLESTEROL 114 <=130 mg/dL 12/08/2018 8:47 PM CDT [facility] PROVIDER ORDERED STATUS RANDOM 12/08/2018 8:47 PM CDT [facility] Blood BLOOD SPECIMEN / Unknown Venipuncture / Unknown 12/08/2018 4:10 PM CDT 12/08/2018 4:37 PM CDT Keon Hong MD CHEMISTRY [facility] [address] [place] [address], from Last 3 Months or Most Recently Relevant to Health Maintenance Advance Directives * Full Code (Latest Code Status on File) Date Activated Date Inactivated Comments 2005 1:25 PM 05/17/2005 7:54 PM * Full Code Date Activated Date Inactivated Comments 2005 9:32 AM 2005 1:25 PM Care Teams Audiology Doctor Relationship Specialty Start Date End Date Anoop Emery MD [address] [place] [address] PCP - General Family Practice 04/09/21
--- OUTSIDE RECORDS SUMMARY | 2023-12-09 11:51 | XMS_ITS | Encounter Summary ---
Author Organization [employer] Address [address] [place] [address] Care Team Providers Care Poultry Hatchery Laborer Name Role Phone Denise Harris MD Primary Care Provider [phone] Anoop Emery MD Unavailable [phone] Inez Peck See Luis Antonio GARZA Unavailable [phone] Inez Peck See Luis Antonio GARZA Unavailable [phone] Encounter Details Date Type Department Care Team (Late st Contact Info) Description 04/09/2018 [facility] [place] [address] Jeanine Ford DPJose Roberto, Podiatry/Foot and Ankle Surgery [address] [place] [address] [address] Foot pain, bilateral (Primary Dx) Social History [...] process of being sent. Geri Taveras, RN IT CARD ASSOCIATE documented in this encounter Plan of Treatment Not on file documented as of this encounter Visit Diagnoses Diagnosis Foot pain, bilateral- Primary documented in this encounter Care Teams Poultry Hatchery Laborer Relationship Specialty Start Date End Date Denise Harris MD [address] [address] PCP - General Internal Medicine 01/17/15 Anoop Emery MD [address] [address] Referring Physician Family Medicine 09/15/20 Inez Peck MD [address] [place] [address] Urology 09/15/20 Inez Peck MD [address] [place] [address] Assigned Surgical Provider 11/12/20 05/10/22 documented as of this encounter
--- OUTSIDE RECORDS SUMMARY | 2023-12-09 11:52 | XMS_ITS | Encounter Summary ---
Author Organization [facility] Address [address] [place] [address] Care Team Providers Care Shopper Name Role Phone Elsewhere, Pcp Primary Care Provider Unavailabl e Encounter Details Date Type Department Care Team (Late st Contact Info) Description 08/04/2018 [facility] [address] [place] [address] Anoop Emery M.D. [address] [place] [phone] Other Dyspnea (Primary Dx) Social History Tobacco [...] Total Score: 5 04/29/19 17 10:10 AM TRANSFORMATION ARCHITECT documented as of this encounter Care Teams Shopper Relationship Specialty Start Date End Date Elsewhere, Pcp PCP - General Internal Medicine 07/16/22 documented as of this encounter
--- OUTSIDE RECORDS SUMMARY | 2023-12-09 11:52 | XMS_ITS | Encounter Summary ---
Author Organization [facility] Address [address] [place] [address] Care Team Providers Care Investor Relations Associate Name Role Phone Elsewhere, Pcp Primary Care Provider Unavailabl e Reason for Referral * Outpatient (Routine) - Closed Specialty Diagnoses / Procedures Referred By Contact Referred To Contact Gastroenterology and Hepatology Diagnoses Constipation Rectocele Other Specified Disorders Of Muscle Anoop Emery M.D. [address] [place] [phone] [facility] Referral ID Status Reason Start Date Expiration Date Visits Re quested Visits Authorized [id number] Closed 09/02/2017 09/02/2018 1 1 Encounter Details Date Type Department Care Team (Late st Contact Info) Description 09/01/2017 [facility] [address] [place] [address] Aonop Emery M.D. [address] [place] [phone] Other Specified Disorders Of Muscle (Primary [...] Total Score: 5 04/29/19 17 10:10 AM SQL MANAGER documented as of this encounter Care Teams Investor Relations Associate Relationship Specialty Start Date End Date Elsewhere, Pcp PCP - General Internal Medicine 07/16/22 documented as of this encounter
--- OUTSIDE RECORDS SUMMARY | 2023-12-09 11:52 | XMS_ITS | Encounter Summary ---
Author Organization [facility] Address [address] [place] [address] Care Team Providers Care Forestry Professor Name Role Phone Elsewhere, Pcp Primary Care Provider Unavailabl e Reason for Visit * Reason Onset Date Comments Nurse Assessment 10/14/2023 Encounter Details Date Type Department Care Team (Latest Contact Info) Description 10/14/2023 Clinical Communication Department of Physical Medicine and Rehabilitation in [place], [place] [address] [place] [address] Amor Garrett M.D. [address] [place] [address] Nurse Assessment Social History Tobacco Use Types Packs/Day Years [...] often do you attend chur ch or baptist services? Never 07/18/2022 Do you belong to any clubs o r organizations such as scientology groups, unions, fraternal [...] and heating? Not hard at all 07/18/2022 [facility] - Occupational [...] or slept in a fpc (including now)? No 07/18/2022 Nutrition Answer Date [...] 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, ANESTHESIOLOGISTS' ASSISTANT, ODILIA) 07/15/2020 Sex and Gender Information Value Date Recorded Sex Assigned at Female 07/21/2017 2:58 PM CDT Gender Identity Female 07/21/2017 2:58 PM CDT Sexual Orientation Bisexual 07/21/2017 2: 58 PM CDT documented as of this encounter Miscellaneous Notes * Telephone Encounter - Nell Garces R.N. - 10/14/2023 2:22 PM CDT SUBJECTIVE CHIEF COMPLAINT / REASON FOR CALL Nurse Assessment ASSESSMENT A call was placed to Yaz. She was last seen by Dr. Garrett in 2021. She went on to have a cervical laminoplasty in 12/2021 at the [facility]. Today she is calling with requesting an appointment to be seen for cervical and lumbar pain. Her neck is very painful when she moves her head back and forth. She has limited ROM. She rates herpain 4/10 and denies her pain radiates anywhere. She endorses low back pain. She has pain when she stands and walks. Most of the pain is in the low back but will radiate into the buttocks. She rates her low back pain as a 4/10. She denies any red flags. PLAN Yaz stated she had a cervical neck xray about 1-2 months locally. She will request images be sent to the [facility]. She was told she most likely will need updated imaging. Disposition/Recommendation: notified provider and awaiting recommendations. Information/Education: patient/caller able to teach back. Caller agreeable to plan of care: yes. The following references were used: nursing clinical judgement. documented in this encounter Plan of Treatment Not on file documented as of this encounter Visit Diagnoses Not on filedocumented in this encounter Additional Health Concerns Assessment Noted Time PHQ-9 Depression Total Score: 5 04/29/19 17 10:10 AM FINISH REPAIRER documented as of this encounter Care Teams Forestry Professor Relationship Specialty Start Date End Date Elsewhere, Pcp PCP - General Internal Medicine 07/16/22 documented as of this encounter
[2023-12-09] MEDS: DOCUSATE SODIUM/BENZOCAINE 5 ML ENEMA PR (12:55)
== END 2023-12-09 14:32 | disposition home or self-care (01) ==
PROVIDERS: Emergency Provider Student in an Organized Health Care Education/Training Program; PCP Family Medicine
DX: K59.00 Constipation, unspecified (principal)
CPT/HCPCS: 74018; 99282; 99283; A9270

== ENCOUNTER 2023-12-10 21:58 | Outpatient (CLI) | payer MEDICARE, BC, SELFPAY ==
--- OUTSIDE RECORDS SUMMARY | 2023-12-13 03:59 | XMS_ITS | Clinical Summary ---
Author Organization [employer] [facility] [employer] Address [place], [place] [address] Care Team Providers Care Precinct Police Lieutenant Name Role Phone Anoop Emery MD Primary Care Provider [phone] Allergies Active Allergy Reactions Criticality Noted Date [...] nasal solution (FLONASE)Indicati ons:Seasonal allergies Inhale 1 [place] to both nostrils two times daily. 12/28/2021 [...] daily if needed. 12/28/2021 Active fish,bora,flax oils-om3,6,9no1 ([place] 3-6-9) 1,200 mg cap Take 1 capsule. [...] Department Care Team Description 10/06/2023 Lab Requisition [facility] [phone] Dionicio Galo MD from Last 3 Months [...] MD LAB BILL ONLY Performing Organization Address City/State/[facility] Co de Phone Number [facility] [address] [place] [address], * PATH FNA CYTOLOGY ASP CYTOLOGY (10/06/2023 2:30 PM CDT) Case Report Medical Cytology Report ? Case: [id number] ? Authorizing Provider: ??Dionicio Galo MD ?Collected: ? 10/06/2023 1430 ? Ordering Location: ? [facility] ?Received: ?10/07/2023 0735 ? Pathologist: ? Jenifer Fink MD ? Specimens: ?? A) - Right Mid Thyroid, midportion ? B) - Right Superior Thyroid, upper pole ? 10/07/2023 12:49 PM CDT [id number] Final Diagnosis A) THYROID, RIGHT MID, ULTRASOUND GUIDED FINE NEEDLE ASPIRATION: 1. Benign thyroid nodule 2. Negative for malignancy ?? 3. See comment B) THYROID, RIGHT SUPERIOR, ULTRASOUND GUIDED FINE NEEDLE ASPIRATION: 1. Benign thyroid nodule 2. Negative for malignancy 3. See comment 10/07/2023 12:49 PM T [facility] Comment A,B) The risk of malignancy in the follow-up of lesions with this cytologic appearance is low (0-3%). Clinical and radiologic correlation is advised, with repeat sampling recommended for any suspicious or enlarging lesion at this site. 10/07/2023 12:49 PM CDT [facility] Clinical Information Ms. Adames is a 68 y.o. female with two TR4, 1.6 and 1.9 c right thyroid nodules. 10/07/2023 12:49 PM CDT [facility] Gross Description A) Received identified as [...] stained ThinPrep slide 10/07/2023 12:49 PM CDT [facility] Adequacy Assessment 10/07/2023 12:49 PM CDT [facility] Microscopic Description A) Specimen adequacy: Low but adequate cellularity for interpretation. B) Specimen adequacy: Adequate for interpretation. All slides were reviewed. The microscopic appearance substantiates the diagnosis. 10/07/2023 12:49 PM CDT [facility] Additional Information Cytology is screened at [facility] - [address], [place] [address] and [facility] - [address] [place] [address] and [facility] - [address] [place] [address] Interpreted at [facility] - [address], [place] [address] 10/07/2023 12:49 PM CDT [facility] Aspirate (Right Mid Thyroid) 10/06/2023 2:30 PM CDT 10/07/2023 7:35 AM CDT Specimen obtained by aspiration (specimen) (Right Superior Thyroid) 10/06/2023 2:30 PM CDT 10/07/2023 7:35 AM CDT Dionicio Galo MD PATHOLOGY/CYTOLOGY [facility] [address] [place] [address], * ANTI HCV (01/07/2019 1:40 PM CDT) HEPATITIS C ANTIBODY Non-React shandra Non-React shandra 01/07/2019 8:28 PM CDT [facility] Comment:Antibodies to HCV no t detected; does not exclude the possibility of exposure to HCV. Blood BLOOD SPECIMEN / Unknown Venipuncture / Unknown 01/07/2019 1:40 PM CDT 01/07/2019 1:47 PM CDT Thalia COMBS SEND OUTS [facility] [address] [place] [address], * (ABNORMAL) LIPID PANEL W REFLEX MEASURED LDL (12/08/2018 4:10 PM CDT) CHOLESTEROL,TOTAL 213(H) 100 - 199 mg/dL 12/08/2018 8:47 PM CDT [facility] TRIGLYCERIDES 249(H) <150 mg/dL 12/08/2018 8:47 PM CDT [facility] HDL CHOLESTEROL 49 >40 mg/dL 9 8:47 PM CDT [facility] NON-HDL CHOLESTEROL 164(H) <145 mg/dl 12/08/2018 8:47 PM CDT [facility] CHOL/HDL RATIO 4.35 <4.50 12/08/2018 8:47 PM CDT [facility] LDL CHOLESTEROL 114 <=130 mg/dL 12/08/2018 8:47 PM CDT [facility] PROVIDER ORDERED STATUS RANDOM 12/08/2018 8:47 PM CDT [facility] Blood BLOOD SPECIMEN / Unknown Venipuncture / Unknown 12/08/2018 4:10 PM CDT 12/08/2018 4:37 PM CDT Keon Hong MD CHEMISTRY [facility] [address] [place] [address], from Last 3 Months or Most Recently Relevant to Health Maintenance Advance Directives * Full Code (Latest Code Status on File) Date Activated Date Inactivated Comments 2005 1:25 PM 05/17/2005 7:54 PM * Full Code Date Activated Date Inactivated Comments 2005 9:32 AM 2005 1:25 PM Care Teams Precinct Police Lieutenant Relationship Specialty Start Date End Date Anoop Emery MD [address] [place] [address] PCP - General Family Practice 04/09/21
--- OUTSIDE RECORDS SUMMARY | 2023-12-13 03:59 | XMS_ITS | Clinical Summary ---
Author Organization [facility] Address [address], [place] [address] Care Team Providers Care Hand Sample Maker Name Role Phone Thalia Barron PA-C Primary Care Provider Un available Source Comments You are receiving this document as you are listed as the primary care provider,follow-up provider, or the patient has been referred to you for consultation.This is in compliance with the Medicare and[facility] EHR Incentive Program,which states Providers who transition their patient to another setting of careor provider of care or refers their patient to another provider of care shouldprovide summary care record for each transition of care or referral. [employer] Allergies Active Allergy Reactions Criticality Noted Date [...] Instr:for eczema on hand 15 04/26/2009 Active [place]-3 Fatty Acids ([facility] FISH OIL) 1200 MG [...] 12 04/26/2009 Active nystatin-triamcinolo ne (AKA MYCOLOG-II) 644834-5.1 UNIT/GM-% cream Apply 1 Applicatorful topically 3 [...] Comments Blood Pressure 118/80 05/01/2009 7:20 AM SUPERVISOR ENDLESS TRACK VEHICLE C: Dynamap Pulse 102 05/01/2009 7:20 AM SUPERVISOR ENDLESS TRACK VEHICLE Temperature 36.7 ??C (98.1 ??F) 05/01/2009 7 :20 AM SUPERVISOR ENDLESS TRACK VEHICLE ORAL C: 98.1 F Respiratory Rate 16 05/01/2009 7:20 AM SUPERVISOR ENDLESS TRACK VEHICLE Oxygen Saturation 96% 05/01/2009 7:2 1 AM SUPERVISOR ENDLESS TRACK VEHICLE Inhaled Oxygen Concentration - - Weight - [...] age to complete this topic Care Teams Hand Sample Maker Relationship Specialty Start Date End Date Thalia Barron PA-C PCP - General Physician Financial Wellness Coach 10/06/18
--- OUTSIDE RECORDS SUMMARY | 2023-12-13 03:59 | XMS_ITS | Clinical Summary ---
Author Organization [facility] Address [address] [place] [address] Care Team Providers Care Lead Engineer Name Role Phone Denise Harris MD Primary Care Provider Anoop Emery MD Unavailable [phone] Inez Peck MD Unavailable [phone] Allergies Active Allergy Reactions Criticality Noted Date [...] mg by mouth 3 times daily Active [place]-3 Fatty Acids (OMEGA 3 PO) Take by [...] of Treatment Not on file Care Teams Lead Engineer Relationship Specialty Start Date End Date Denise Harris MD [facility] [address] [place] [address] PCP - General Internal Medicine 01/17/15 Anoop Emery MD [facility] [address] [place] [address] Referring Physician Family Medicine 09/15/20 Inez Peck MD [address] [place] [id number] Urology 09/15/20
--- OUTSIDE RECORDS SUMMARY | 2023-12-13 04:00 | XMS_ITS ---
Author Organization [facility] Address [address] [place] [address] Care Team Providers Care Director Medical Affairs Name Role Phone Unavailable Unavailable Unavailable Surgery Details Not on file Complications Check Surgery Details section. Procedure Estimated Blood Loss Check Surgery Details section. Procedure Findings Check Surgery Details section. Procedure Specimens Taken Check Surgery Details section.
--- OUTSIDE RECORDS SUMMARY | 2023-12-13 04:00 | XMS_ITS | Continuity of Care Document ---
Author Organization [facility] Address [address] [address] [place] [address] Care Team Providers Care Homemaker Companion Name Role Phone [place], [place] Unavailable Unav ailable Procedures Procedure Date Colono Advance Directives Directive Yes / No Effective Date File Name No Information Encounters Encounter Description Practice Location Reason(s) For Visit Diagnoses Date Provider Providers Copied on Encounter [facility], [address] [address], [place], [place], [id number], [place] [facility] No Information [facility]. [address] [address], [place], [place], [id number], . tel:[phone] Referring Provider: Joanne Grimm MD, [address] [facility] [address], [place], [address] . tel:[phone] Family History Family Member Type Diagnosis Age At Onset No Information Payers Payer name Insurance type Covered constitution party ID Authoriza tion(s) [employer] [place] [employer] [id number] Social History Type Description Quantity Date Captured [...]
--- OUTSIDE RECORDS SUMMARY | 2023-12-13 04:00 | XMS_ITS | Encounter Summary ---
Author Organization [facility] Address [address] [place] [address] Care Team Providers Care Database Specialist Name Role Phone Elsewhere, Pcp Primary Care Provider Unavailabl e Encounter Details Date Type Department Care Team (Late st Contact Info) Description 08/04/2018 [facility] [address] [place] [address] Anoop Emery M.D. [address] [place] [phone] Other Dyspnea (Primary Dx) Social History Tobacco [...] Total Score: 5 04/29/19 17 10:10 AM PIPE INSULATOR HELPER documented as of this encounter Care Teams Database Specialist Relationship Specialty Start Date End Date Elsewhere, Pcp PCP - General Internal Medicine 07/16/22 documented as of this encounter
--- OUTSIDE RECORDS SUMMARY | 2023-12-13 04:00 | XMS_ITS | Continuity of Care Document ---
Author Organization [facility] Address [address] [place] [address] Phone Care Team Providers Care Bonbon Dipper Name Role Phone Doug Mars MD Unavailable Unavailable Allergies, Adverse Reactions, Alerts Substance Reaction Status Criticality mupirocin Active No Information Medications Medication Instructions Dosage Effective Dates (start - stop) Status Comments GLIPIZIDE (unknown strength) Not Available - Active XARELTO (unknown strength) Not Available - Active AMOXICILLIN [...] HYDROCHLOROTHIAZIDE (unknown strength) Not Available - Active VENLAFAXINE HCL (unknown strength) Not Available - Active VALACYCLOVIR (unknown strength) Not Available - Active TRAZODONE HCL (unknown strength) Not Available - Active PREGABALIN (unknown strength) Not Available - Active PRAMIPEXOLE DIHYDROCHLORIDE (unknown strength) Not Available - Active OXYCODONE HCL (unknown strength) Not Available - Active ONDANSETRON ODT (unknown strength) Not Available - Active Procedures Procedure Date Office/Outpatient Visit,Est, Mod 2021 OFFICE/OUTPATIENT VISIT EST Phone Office/Outpatient Visit,New, Mod 2020 Office/outpatient visit,est, low 2005 Advance Directives Directive Yes / No Effective Date File Name No Information Encounters Encounter Description Practice Location Reason(s) For Visit Diagnoses Date Provider Providers Copied on Encounter [facility], [address], [place], [place], [id number], [place] tel:[phone] [facility] No Information 2 Jerad Camacho. [facility], [address], [place] [address], [place], [place], [id number], [place]. tel:[phone] Office/Outpa tient Visit,Est, Mod [facility], [address], [place], [place], [id number], [place] tel:[phone] [facility] Spinal stenosis, cervical regionOther forms of scoliosis, site unspecifiedS pondylolysis , site unspecifiedS kevin stenosis, lumbar region with neurogenic claudication 2 Jerad Camacho. [facility] [place], [address], [place] [address], [place], [place], [id number], [place]. tel:[phone] Referring Provider: Anoop Ruiz, [facility] [address] [place], [address]. tel:[phone] OFFICE/OUTPA TIENT VISIT EST Phone [facility], [address], [place], [place], [id number], [place] tel:[phone] [facility] No Information 2 Jerad Camacho. [facility] [place], [address] [place] [address], [place] [address], [place], [place], [id number], [place]. tel:[phone] Referring Provider: Anoop Ruiz, [facility] [address] [place], [address]. tel:[phone] Office/Outpa tient Visit,New, Mod [facility], [address], [place], [place], [id number], [place] tel:[phone] [facility] Spinal stenosis, cervical regionSpinal stenosis, lumbar region with neurogenic claudication Other spondylosis, lumbar region No Information Referring Provider: Anoop Ruiz, [facility] [address] [place], [address]. tel:[phone] Office/outpa tient visit,est, low Z [facility], [address], [place], [address], [place] tel:[phone] [facility] No Information 6 No Information Referring Provider: Gordon Boyd, [place] [address] [place], [address]. tel:[phone] Family History Family Member Type Diagnosis Age At Onset No Information Payers Payer name Insurance type Covered republican ID Meel weller(s) [facility] [id number] Medicare [facility] BL [id number] Social History Type Description Quantity Date [...]
--- OUTSIDE RECORDS SUMMARY | 2023-12-13 04:00 | XMS_ITS | Encounter Summary ---
Author Organization [facility] Address [address] [place] [address] Care Team Providers Care Scrap Preparation Supervisor Name Role Phone Elsewhere, Pcp Primary Care Provider Unavailabl e Reason for Referral * Outpatient (Routine) - Closed Specialty Diagnoses / Procedures Referred By Contact Referred To Contact Gastroenterology and Hepatology Diagnoses Constipation Rectocele Other Specified Disorders Of Muscle Anoop Emery M.D. [address] [place] [phone] [facility] Referral ID Status Reason Start Date Expiration Date Visits Re quested Visits Authorized [id number] Closed 09/02/2017 09/02/2018 1 1 Encounter Details Date Type Department Care Team (Late st Contact Info) Description 09/01/2017 [facility] [address] [place] [address] Anoop Emery M.D. [address] [place] [phone] Other Specified Disorders Of Muscle (Primary [...] Total Score: 5 04/29/19 17 10:10 AM DOUGH CUTTING MACHINE OPERATOR documented as of this encounter Care Teams Scrap Preparation Supervisor Relationship Specialty Start Date End Date Elsewhere, Pcp PCP - General Internal Medicine 07/16/22 documented as of this encounter
--- OUTSIDE RECORDS SUMMARY | 2023-12-13 04:00 | XMS_ITS | Encounter Summary ---
Author Organization [facility] Address [address] [place] [address] Care Team Providers Care Alumnae Secretary Name Role Phone Denise Harris MD Primary Care Provider Anoop Emery MD Unavailable [phone] Inez Peck MD Unavailable [phone] Inez Peck MD Unavailable [phone] Encounter Details Date Type Department Care Team (Late st Contact Info) Description 10/31/2020 MyC Medical Advice [facility] [address] 4[address] [place] [address] Inez Peck MD [address] [facility] [address] [place] [address] Social History Tobacco Use Types [...] on filedocumented in this encounter Care Teams Alumnae Secretary Relationship Specialty Start Date End Date Denise Harris MD [address] [address] PCP - General Internal Medicine 01/17/15 Anoop Emery MD [facility] [address] [place] [address] Referring Physician Family Medicine 09/15/20 Inez Peck MD [address] [place] [address] Urology 09/15/20 Inez Peck MD [address] [place] [address] [id number] Assigned Surgical Provider 11/12/20 05/10/22 documented as of this encounter
--- OUTSIDE RECORDS SUMMARY | 2023-12-13 04:00 | XMS_ITS | Continuity of Care Document ---
Author Organization [facility] Address [address] [place] [address] Care Team Providers Care Refrigeration System Installer Name Role Phone Angus Cao CRNA Unavailable Unavailable Procedures Procedure Date Percutaneous Image guided neuromodulatio n or intra Advance Directives Directive Yes / No Effective Date File Name No Information Encounters Encounter Description Practice Location Reason(s) For Visit Diagnoses Date Provider Providers Copied on Encounter [facility], [address] [place], [place], [id number], [facility] No Information Nash Greco. [address] [facility], [place], [place], [id number] , . tel:[phone] Referring Provider: Davie Scherer, [address] [place], [address] . tel:[phone] Family History Family Member Type Diagnosis Age At Onset No Information Payers Payer name Insurance type Covered republican ID Authoriza tibrie(s) Blue Cross [place] Complete BL [id number] Social History Type Description Quantity Date [...]
--- OUTSIDE RECORDS SUMMARY | 2023-12-13 04:00 | XMS_ITS | Continuity of Care Document ---
Author Organization [facility] Address [address] [place] [address] Phone Care Team Providers Care Loom Technician Name Role Phone Logan Hart Unavailable Unavailable [...] - No Longer Active Procedures Procedure Date [facility] Lead Pull Satellite No Charge For [...] Diagnoses Date Provider Providers Copied on Encounter [facility], [address] [place] [address], [id number] , [place] tel:[phone] [facility] Type 2 diabetes mellitus with diabetic neuropathy, unspecified 3 Yoon Ford. [address] [facility] [address] [facility] [address], [place], [id number], [place]. tel:[phone] Referring Provider: Anoop Emery, [address], [address]. tel:[phone] [facility], [address] [place] [address], [id number] , [place] tel:[phone] [facility] Type 2 diabetes mellitus with diabetic neuropathy, unspecified 3 Niesha Broderick. [address] [place], [place], [id number], [place]. tel:[phone] Referring Provider: Anoop Emery [facility] [address] [place], [address]. tel:[phone] OFFICE VISIT, EST TELEMEDICINE [facility], [address] [place] [address], [id number] , [place] tel:[phone] [facility] Widespread pain (chief complaint) Type II diabetes mellitus with diabetic neuropathy 3 Kira Bergeron. [address] [facility] 11, [facility] [address], [place], [id number], [place]. tel:[phone] [facility], [address] [place] [address], [id number] , [place] [phone] [facility] [place] pain (chief complaint) Type II diabetes mellitus with diabetic neuropathy 3 Lalitha Sandoval. [address] [place], [place], [id number], [place]. [phone] Psych Dx Eval [facility], [address] [place] [address], [id number] , [place] tel:[phone] Telehealth Pain disorder with related psychological factorsMajor depressive disorder, recurrent, in partial remissionAlcoh ol dependence, in remission 3 Natalia Brice. [address] [place] [address], [id number], [place]. tel:[phone] OFFICE/OUTPAT IENT VISIT, EST [facility], [address] [place] [address], [id number] , [place] [phone] [facility] Widespread pain (chief complaint) Type II diabetes mellitus with diabetic neuropathyChro amie pain syndromeSpinal stenosis, lumbar region without neurogenic claudicationPo stlaminectomy syndrome, not elsewhere classifiedLong term (current) use of opiate analgesic 3 Kira Bergeron. [address] [place] [address], [address], [id number], [place]. tel:[phone] Referring Provider: Anoop Emery [facility] [address] [place], [address]. tel:[phone] [facility], [address] [place] [address], [id number] , [place] tel:[phone] [facility] No Information 3 Kira Bergeron. [address] [facility] 11, [facility] [address], [place], [id number], [place]. tel:[phone] Referring Provider: Anoop Emery [facility] [address] [place], [address]. tel:[phone] OFFICE/OUTPAT IENT VISIT, [facility], [address] [place], [place], [id number] , [place] tel:[phone] [facility] [place] Widespread pain (chief complaint) Chronic pain syndromePostla minectomy syndrome, not elsewhere classifiedLong term (current) use of opiate analgesicEncou nter for therapeutic drug level monitoringSpin al stenosis, lumbar region without neurogenic claudicationTy pe II diabetes mellitus with diabetic neuropathy 3 Kira Elyssa. [address] [facility] [address], [place], [place], [id number], [place]. tel:[phone] Referring Provider: Anoop Emery, [facility] [address] [place], [address]. tel:[phone] Family History Family Member Type Diagnosis Age At Onset No Information Payers Payer name Insurance type Covered constitution party ID Authoriza nithin(s) Blue Cross [place] Complete BL [id number] Social History Type Description Quantity Date [...] due Goal Creatinine. Due on due Goal PLASTICS SUPERVISOR Scanned. Due on 023 due Goal ALT (SGPT). Due on due Goal UDT. Due on due Goal AST (SGOT). Due on due Goal CTC OPERATOR Paperwork. Due on due Goal OARS. Due [...] due Goal FIT-DNA. Due on due Goal CTC OPERATOR Paperwork. Due on due Goal ALT (SGPT). Due on due Goal PLASTICS SUPERVISOR Scanned. Due on due Goal Order Annual [...] Goal AST (SGOT). Due on due Goal PLASTICS SUPERVISOR Scanned. Due on due Goal ALT (SGPT). Due on due Goal Order Annual PT. Due on due Goal OARS. Due on due Goal UDT. Due on due Goal Creatinine. Due on due Goal CTC OPERATOR Paperwork. Due on due Goal Medication Reconciliation. [...] Order Annual PT. Due on due Goal CTC OPERATOR Paperwork. Due on due Goal Creatinine. Due [...] due Goal FIT-DNA. Due on due Goal PLASTICS SUPERVISOR Scanned. Due on due Goal UDT. Due [...] Social History. Due o n due Goal PLASTICS SUPERVISOR Scanned. Due on due Goal UDT. Due on due Goal ALT (SGPT). Due on due Goal OARS. Due on due Goal Order Annual PT. Due on due Goal CTC OPERATOR Paperwork. Due on due Goal Creatinine. Due on due Goal AST (SGOT). Due on due Goal UDT. Due on due Goal AST (SGOT). Due on due Goal Order Annual PT. Due on due Goal OARS. Due on due Goal ALT (SGPT). Due on due Goal CTC OPERATOR Paperwork. Due on due Goal Creatinine. Due on due Goal PLASTICS SUPERVISOR Scanned. Due on due Goal FIT. Due [...] is for doctors visits. she has a PSYCHOLOGIST EDUCATIONAL that comes in and helps her with [...] hx of cervical foraminotomy late 2021 at [facility]. Has an upcoming appt at [facility] regarding her low back pain. Her worst [...] of the patient. Some outside records from [facility] are available for review. Her daughter, Asha, participates in the discussion of care.Yaz is a 67 y/o female here for initial consult for low back, neck, and BL feet pain, referred by Dr. Anoop Emery, through [facility]. Pain has gradually worsened over 20 years ago and started with BL knee pain. Pain is primarily She describes pain as aching, burning, stabbing, crippling, and shooting and rates the pain severity 6/10. She also has a dx of fibromyalgia. Denies hx of low back surgery. Does report a hx of cervical foraminotomy late 2021 at [facility]. After surgery, she noticed improvement in mobility [...] No recent EMG. She has tried PT, transitional care liaison, and ESIs, without lasting relief. The patient has previously tried cymbalta, lidocaine patches, and CBD.The patient is currently managed on Lyrica 150mg TID, venlaxafine 225mg AM, oxycodone (once daily), voltaren gel, ibuprofen 800mg TID, hydrochlorothiazide 25mg AM, metformin 500mg (1000mg AM and PM), trazodone 2000mg HS, xarelto 10mg, and pramipexole 0.3275mg 5 tabs/day.Yaz is interested in all treatment options through [facility]. No other concerns today.Of note, [...]
--- OUTSIDE RECORDS SUMMARY | 2023-12-13 04:00 | XMS_ITS | Encounter Summary ---
Author Organization [facility] Address [address] [place] [address] Care Team Providers Care Buffet Waiter/Waitress Name Role Phone Elsewhere, Pcp Primary Care Provider Unavailabl e Reason for Visit * Reason Onset Date Comments Nurse Assessment 10/14/2023 Encounter Details Date Type Department Care Team (Latest Contact Info) Description 10/14/2023 Clinical Communication Department of Physical Medicine and Rehabilitation in [place], [place] [address] [place] [address] Amor Garrett M.D. [address] [place] [address] Nurse Assessment Social History Tobacco Use Types [...] often do you attend chur ch or worship services? Never 07/18/2022 Do you belong to [...] and heating? Not hard at all 07/18/2022 [facility] of Occupat ional Health - Occupational Stress [...] 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, SITE IDENTIFICATION SPECIALIST, ODILIA) 07/15/2020 Sex and Gender Information Value [...] a cervical laminoplasty in 12/2021 at the [facility]. Today she is calling with requesting an [...] will request images be sent to the [facility]. She was told she most likely will [...] Total Score: 5 04/29/19 17 10:10 AM COVER CUTTER MACHINE documented as of this encounter Care Teams Buffet Waiter/Waitress Relationship Specialty Start Date End Date Elsewhere, Pcp PCP - General Internal Medicine 07/16/22 documented as of this encounter
--- OUTSIDE RECORDS SUMMARY | 2023-12-13 04:00 | XMS_ITS | Encounter Summary ---
Author Organization [facility] Address [address] [place] [address] Care Team Providers Care Bindery Supervisor Name Role Phone Denise Harris MD Primary Care Provider [phone] Anoop Emery MD Unavailable [phone] Inez Peck See Luis Antonio GARZA Unavailable [phone] Inez Peck See Luis Antonio GARZA Unavailable [phone] Encounter Details Date Type Department Care Team (Late st Contact Info) Description 04/09/2018 [facility] [place] [address] Jeanine Ford DPJose Roberto, Podiatry/Foot and Ankle Surgery [address] [place] [address] [address] Foot pain, bilateral (Primary Dx) Social History [...] process of being sent. Geri Taveras, RN SUPERVISOR documented in this encounter Plan of Treatment Not on file documented as of this encounter Visit Diagnoses Diagnosis Foot pain, bilateral- Primary documented in this encounter Care Teams Bindery Supervisor Relationship Specialty Start Date End Date Denise Harris MD [address] [address] PCP - General Internal Medicine 01/17/15 Anoop Emery MD [address] [address] Referring Physician Family Medicine 09/15/20 Inez Peck MD [address] [place] [address] Urology 09/15/20 Inez Peck MD [address] [place] [address] Assigned Surgical Provider 11/12/20 05/10/22 documented as of this encounter
--- OUTSIDE RECORDS SUMMARY | 2023-12-13 04:00 | XMS_ITS | Clinical Summary ---
Author Organization [facility] Address [address] [place] [address] Care Team Providers Care Foundation Engineer Name Role Phone Elsewhere, Pcp Primary Care Provider Unavailabl e Source Comments Patient records contain information from all sites at [facility]. For routine questions regarding patient records, call [phone] during business hours, M-F 8:00 AM - 5:00 PM Central Time. Record requests for emergency care only can be directed to [phone] at any time.[facility] Allergies Active Allergy Reactions Criticality Noted Date [...] (11/14/2021): Added automatically from request for surgery [id number] Pain Neuropathic 04/11/2020 Constipation 09/23/2017 Prolapse Vaginal [...] Department of Physical Medicine and Rehabilitation in [place], [place] [address] [place] [address] Amor Garrett M.D. Nurse Assessment from Last [...] any clubs o r organizations such as spiritism groups, unions, fraternal [...] and heating? Not hard at all 07/18/2022 [facility] of Occupat ional Health - Occupational Stress [...] 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, AIX ADMINISTRATOR, ODILIA) 07/15/2020 Sex and Gender Information Value [...] Discontinued 12/18/2021 Medical Devices Implanted Type Area Plastic Roller Device Identifier Shelf Expiration Date Model / Serial / Lot Self Drilling Cortex Screw 6mm Implanted:Qty: 5 on 12/24/2021 by Buster Herrera M.D. at [facility] Hardware e.g. pins/screws /rods N/A: Posterior Cervical Depuy Synthes 401.136. 99 / / Self Drilling Cortex Screw 8mm Implanted:Qty: 6 on 12/24/2021 by Buster Herrera M.D. at [facility] Hardware e.g. pins/screws /rods N/A: Posterior Cervical Depuy Synthes 401.13.8 99 / / Miniplate Double Bend 10mm Spacing Implanted:Qty: 3 on 12/24/2021 by Buster Herrera M.D. at [facility] Hardware e.g. pins/screws /rods N/A: Posterior Cervical Depuy Synthes 443.180 / / J J Sig Tib Poly Stab #4 8.0m - [place] [id number] Implanted:Qty: 1 on 12/18/2011 Knee Implant Other/Legacy - See Implant Description [employer] Description:Device Manufactu rer - [employer]. Body Location - Other. Right. Device Status Text - [id number] [id number]. J J Patella Rev Round 35m - [place] [id number] Implanted:Qty: 1 on 12/18/2011 Knee Implant Other/Legacy - See Implant Description [employer] Description:Device Manufactu rer - [employer]. Body Location - Other. Right. Device Status Text - [id number] [id number]. Sigma Post Stab.W Lug Fem Sz 5 Rt - [place] [id number] Implanted:Qty: 1 on 12/18/2011 Knee Implant Other/Legacy - See Implant Description [employer] Description:Device Manufactu rer - [employer]. Body Location - Other. Right. Device Status Text - [id number] [id number]. Cement Bone Small - [place] [id number] Implanted:Qty: 1 on 12/18/2011 Misc Other [place] Description:Device Manufactu rer - Shanna Mariama.. Device Status Text - [id number]. Cement Bone Large - [place] [id number] Implanted:Qty: 1 on 12/18/2011 Misc Other [place] Description:Device Manufactu rer - Shanna Mariama.. Device [...] Metabolic Panel (12/24/2021 8:41 PM CDT) Pathologist [facility] Potassium, S 4.1 3.6 - 5.2 mmol/L [...] M.D. LAB BLOOD ADD-ON Performing Organization Address City/[facility]/ZIP Co de Phone Number [facility] [address] [facility] [address] [place] [address] * Sodium, B (12/24/2021 2:57 PM CDT) Sodium, B 135 135 - 145 mmol/L 12/24/2021 2:58 PM CDT [facility] Blood (Blood, Arterial Line) 12/24/2021 2:57 PM CDT 12/24/2021 2:57 PM CDT Milton Davis M.D. LAB BLOOD NON ADD- ON [facility] [address] [place] [address], [facility][note 3] [address] [place] [address] * (ABNORMAL) Hemoglobin A1c (12/18/2021 12:28 PM [...] PM CDT 12/18/2021 12:38 PM CDT Buster Hererra M.D. LAB BLOOD ADD-ON [facility] [address] [place] [address], [facility] [address] [place] [address] from Last 3 Months or Most Recently Relevant to Health Maintenance Advance Directives For more information, please contact: [phone] Documents on File Type Date Recorded Patient Tender Labor Expl anation Advance Directives 12/17/2011 12:00 AM Leg acy document. See document viewer. * Full Code (Latest Code Status on File) Date Activated Date Inactivated Comments 12/24/2021 6:31 PM 12/28/2021 5:21 PM Question Answer Comments Full Code: Discussed Care Teams Foundation Engineer Relationship Specialty Start Date End Date Elsewhere, Pcp PCP - General Internal Medicine 07/16/22
--- OUTSIDE RECORDS SUMMARY | 2023-12-13 04:00 | XMS_ITS | Referral Summary ---
Author Organization [facility] Address [address] [place] [address] Care Team Providers Care Ssrs Report Developer Name Role Phone Elsewhere, Pcp Primary Care Provider Unavailabl e Source Comments Patient records contain information from all sites at [facility]. For routine questions regarding patient records, call [phone] during business hours, M-F 8:00 AM - 5:00 PM Central Time. Record requests for emergency care only can be directed to [phone] at any time.[facility] Encounters Date Type Department Care Team Description 10/14/2023 Clinical Communication Department of Physical Medicine and Rehabilitation in [place], [place] [address] [place] [address] Amor Garrtet M.D. Nurse Assessment from Last 3 Months [...] (11/14/2021): Added automatically from request for surgery [id number] Pain Neuropathic 04/11/2020 Constipation 09/23/2017 Prolapse Vaginal [...] often do you attend chur ch or yazdanism services? Never 07/18/2022 Do you belong to any clubs o r organizations such as cheondoism groups, unions, fraternal [...] and heating? Not hard at all 07/18/2022 [facility] - Occupational [...] 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, PRESCRIPTION BENEFIT SPECIALIST, ODILIA) 07/15/2020 Sex and Gender Information [...] on file Medical Devices Implanted Type Area Supervisor Files Device Identifier Shelf Expiration Date Model / Serial / Lot Self Drilling Cortex Screw 6mm Implanted:Qty: 5 on 12/24/2021 by Buster Herrera M.D. at [facility] Hardware e.g. pins/screws /rods N/A: Posterior Cervical Depuy Synthes 401.136. 99 / / Self Drilling Cortex Screw 8mm Implanted:Qty: 6 on 12/24/2021 by Buster Herrera M.D. at [facility] Hardware e.g. pins/screws /rods N/A: Posterior Cervical Depuy Synthes 401.13.8 99 / / Miniplate Double Bend 10mm Spacing Implanted:Qty: 3 on 12/24/2021 by Buster Herrera M.D. at [facility] Hardware e.g. pins/screws /rods N/A: Posterior Cervical Depuy Synthes 443.180 / / J J Sig Tib Poly Stab #4 8.0m - Gallo [id number] Implanted:Qty: 1 on 12/18/2011 Knee Implant Other/Legacy - See Implant Description [employer] Description:Device Manufactu rer - J & J [employer]. Body Location - Other. Right. Device Status Text - [id number] [id number]. J J Patella Rev Round 35m - Gallo [id number] Implanted:Qty: 1 on 12/18/2011 Knee Implant Other/Legacy - See Implant Description [employer] Inc Description:Device Manufactu rer - J & J [employer]. Body Location - Other. Right. Device Status Text - [id number] [id number]. Sigma Post Stab.W Lug Fem Sz 5 Rt - Gallo [id number] Implanted:Qty: 1 on 12/18/2011 Knee Implant Other/Legacy - See Implant Description [employer]AD Inc Description:Device Manufactu rer - J & J Healthcare. Body Location - Other. Right. Device Status Text - [id number] [id number]. Cement Bone Small - Gallo [id number] Implanted:Qty: 1 on 12/18/2011 [facility] Other Shanna Description:Device Manufactu rer - Shanna Mariama.. Device Status Text - [id number]-[id number]. Cement Bone Large - Gallo [id number] Implanted:Qty: 1 on 12/18/2011 [facility] Other Shanna Description:Device Manufactu rer - Shanna [...] Basic Metabolic Panel (12/24/2021 8:41 PM CDT) [facility] Potassium, S 4.1 3.6 - 5.2 [...] M.D. LAB BLOOD ADD-ON Performing Organization Address City/[facility] Co de Phone Number [facility] [address] [place], [place] [id number] [place] [address] [facility] [address] [place] [address] * Sodium, B (12/24/2021 2:57 PM CDT) Sodium, B 135 135 - 145 mmol/L 12/24/2021 2:58 PM CDT [facility] Blood (Blood, Arterial Line) 12/24/2021 2:57 PM CDT 12/24/2021 2:57 PM CDT Milton Davis M.D. LAB BLOOD NON ADD- ON Performing Organization Address [facility] Co de Phone Number [facility] [address] [place] [address], [facility] [address] [place] [address] * (ABNORMAL) Hemoglobin A1c (12/18/2021 12:28 PM [...] CDT Buster Herrera M.D. LAB BLOOD ADD-ON [facility] [address] [place] [address], [place] DTL [facility] [address] [place] [address] from Last 3 Months or Most Recently Relevant to Health Maintenance Advance Directives For more information, please contact: [phone] Documents on File Type Date Recorded Patient Well Logging Mud Analysis Captain Expl anation Advance Directives 12/17/2011 12:00 AM Leg acy document. See document viewer. * Full Code (Latest Code Status on File) Date Activated Date Inactivated Comments 12/24/2021 6:31 PM 12/28/2021 5:21 PM Question Answer Comments Full Code: Discussed Care Teams Ssrs Report Developer Relationship Specialty Start Date End Date Elsewhere, Pcp PCP - General Internal Medicine 07/16/22
--- OUTSIDE RECORDS SUMMARY | 2023-12-13 04:00 | XMS_ITS | Referral Summary ---
Author Organization [place] Address [address] [place] [address] Care Team Providers Care Per Diem Physical Therapist Assistant Name Role Phone Denise Harris MD Primary Care Provider Anoop Emery MD Unavailable [phone] Inez Peck MD Unavailable [phone] Allergies Active Allergy Reactions Criticality Noted Date [...] mg by mouth 3 times daily Active Riverside-3 Fatty Acids (OMEGA 3 PO) Take by [...] of Treatment Not on file Care Teams Per Diem Physical Therapist Assistant Relationship Specialty Start Date End Date Denise Harris MD [facility] [address] [place] [address] PCP - General Internal Medicine 01/17/15 Anoop Emery MD [facility] [address] [place] [address] Referring Physician Family Medicine 09/15/20 Inez Peck MD [address] [place] [address] [id number] Urology 09/15/20
--- OUTSIDE RECORDS SUMMARY | 2023-12-13 04:00 | XMS_ITS | Continuity of Care Document ---
Author Organization [facility] Address [address] [place] [address] Phone Care Team Providers Care Director Engineering Name Role Phone [facility] Unavailable Unava ilable Procedures Procedure Date IMPLANT NEUROELECTRODES Implt neurostim elctr each IMPLANT NEUROELECTRODES Advance Directives Directive Yes / No Effective Date File Name No Information Encounters Encounter Description Practice Location Reason(s) For Visit Diagnoses Date Provider Providers Copied on Encounter [facility], [address] [place] [address], [id number], [place] tel:[phone] [facility] No Information [facility]. [address] [place] [address], [id number], . tel:[phone] Referring Provider: Davie Scherer, [address] [place], [address] . tel:[phone] Family History Family Member Type Diagnosis Age At Onset No Information Payers Payer name Insurance type Covered alliance party ID Authoriza tion(s) Blue Cross [place] Complete BL [id number] Social History Type Description Quantity Date [...]
--- OUTSIDE RECORDS SUMMARY | 2023-12-13 04:00 | XMS_ITS | Continuity of Care Document ---
Author Organization [facility] Address [address] [address] [place] [address] Phone Care Team Providers Care Search Marketing Coordinator Name Role Phone Briana Prabhakar CRNA Unavailable [...] Diagnoses Date Provider Providers Copied on Encounter [facility], [address] [address], [place], [place], [id number], [place] tel:[phone] [facility] No Information 2 Nahid Warren. [address] [facility], [facility] [address], [place], [place], [id number] , [place]. [phone] Referring Provider: Joanne Grimm MD, [address] [address], [place], [address]. tel:[phone] [facility], [address] [address], [place], [id number], [place] tel:[phone] [facility] GI Symptoms or Concerns (chief complaint) Colorectal polypsEncounter for screening for malignant neoplasm of colonPolyp of colon 2 Sirisha GARZA June. [address] [facility], [facility] [address], [facility] [place], [id number] , [place]. [phone] Referring Provider: Dionicio Galo MD, [address] [place], [address]. tel:[phone] [facility], [address] [address], [place], [place], [id number], [place] tel:[phone] [facility] No Information 2 Sirisha GARZA [address] [facility], [facility] [address], [facility] [place], [id number] , [place]. tel:[phone] [facility], [address] [address], [place], [place], [id number], [place] tel:[phone] [facility] No Information 2 Nahid Ford. [address] [facility], [facility] [address], [place], [place], [id number] , [place]. tel:[phone] Family History Family Member Type Diagnosis Age [...] ional interface ; Source: Other Registry Novel [id number], all formulations administered Note: [facility] bi-direct ional [...] Covered libertarian ID Authoriza tion(s) Blue Cross [place] Blue BL [id number] Social History Type Description Quantity Date Captured [...]
== END 2023-12-10 21:59 | disposition home or self-care (01) ==
LOC: AMB 12-13 03:57
PROVIDERS: PCP Family Medicine; Visit Provider Emergency Medicine
DX: R53.1 Weakness (principal)
CPT/HCPCS: A0998

== ENCOUNTER 2023-12-22 08:24 | Outpatient (CLI) | payer MEDICARE, BC, SELFPAY ==
--- OUTSIDE RECORDS SUMMARY | 2023-12-23 22:00 | XMS_ITS | Clinical Summary ---
Author Organization [facility] Address [address], [place] [address] Care Team Providers Care Retail Manager In Training Name Role Phone Thalia Barron PA-C Primary Care Provider Un available Source Comments You are receiving this document as you are listed as the primary care provider,follow-up provider, or the patient has been referred to you for consultation.This is in compliance with the Medicare andAd[facility] Regional Medical Centercain EHR Incentive Program,which states Providers who transition their patient to another setting of careor provider of care or refers their patient to another provider of care shouldprovide summary care record for each transition of care or referral. Targeter App Allergies Active Allergy Reactions Criticality Noted Date [...] Instr:for eczema on hand 15 04/26/2009 Active Logan-3 Fatty Acids ([facility] FISH OIL) 1200 MG [...] 12 04/26/2009 Active nystatin-triamcinolo ne (AKA MYCOLOG-II) 988741-4.1 UNIT/GM-% cream Apply 1 Applicatorful topically 3 [...] Comments Blood Pressure 118/80 05/01/2009 7:20 AM ASSISTANT SPEECH LANGUAGE PATHOLOGIST C: Dynamap Pulse 102 05/01/2009 7:20 AM ASSISTANT SPEECH LANGUAGE PATHOLOGIST Temperature 36.7 ??C (98.1 ??F) 05/01/2009 7 :20 AM ASSISTANT SPEECH LANGUAGE PATHOLOGIST ORAL C: 98.1 F Respiratory Rate 16 05/01/2009 7:20 AM ASSISTANT SPEECH LANGUAGE PATHOLOGIST Oxygen Saturation 96% 05/01/2009 7:2 1 AM ASSISTANT SPEECH LANGUAGE PATHOLOGIST Inhaled Oxygen Concentration - - Weight - [...] PCV20) 09/21/2020 09/22/2019 COVID-19 Vaccine (2 - 2023- season) 2023 05/19/2020 Influenza (#1) 2023 01/07/2019, [...] patient's age to complete this topic RSV Aged Out No longer eligi ble based on patient's age to complete this topic MCV4 Aged Out No longer eligi ble based on patient's age to complete this topic Care Teams Retail Manager In Training Relationship Specialty Start Date End Date Thalia Barron PA-C PCP - General Physician Ham Doctor 10/06/18
--- OUTSIDE RECORDS SUMMARY | 2023-12-23 22:00 | XMS_ITS | Clinical Summary ---
Author Organization [employer] [facility] Address [place], [place] [address] Care Team Providers Care Graphics Coordinator Name Role Phone Anoop Emery MD Primary Care Provider [phone] Allergies Active Allergy Reactions Criticality Noted Date [...] nasal solution (FLONASE)Indicati ons:Seasonal allergies Inhale 1 Gallitzin to both nostrils two times daily. 12/28/2021 [...] daily if needed. 12/28/2021 Active fish,bora,flax oils-om3,6,9no1 ([place] 3-6-9) 1,200 mg cap Take 1 capsule. [...] Department Care Team Description 10/06/2023 Lab Requisition [facility] [phone] Dionicio Galo MD from Last 3 Months [...] MD LAB BILL ONLY Performing Organization Address City/State/[facility] Co de Phone Number [facility] [address] [place] [address], * PATH FNA CYTOLOGY ASP CYTOLOGY (10/06/2023 2:30 PM CDT) Case Report Medical Cytology Report ? Case: [id number] ? Authorizing Provider: ??Dionicio Galo MD ?Collected: ? 10/06/2023 1430 ? Ordering Location: ? [facility] ?Received: ?10/07/2023 0735 ? Pathologist: ? Jenifer Fink MD ? Specimens: ?? A) - Right Mid Thyroid, midportion ? B) - Right Superior Thyroid, upper pole ? 10/07/2023 12:49 PM CDT [facility] Final Diagnosis A) THYROID, RIGHT MID, ULTRASOUND GUIDED FINE NEEDLE ASPIRATION: 1. Benign thyroid nodule 2. Negative for malignancy ?? 3. See comment B) THYROID, RIGHT SUPERIOR, ULTRASOUND GUIDED FINE NEEDLE ASPIRATION: 1. Benign thyroid nodule 2. Negative for malignancy 3. See comment 10/07/2023 12:49 PM T [facility] Comment A,B) The risk of malignancy in the follow-up of lesions with this cytologic appearance is low (0-3%). Clinical and radiologic correlation is advised, with repeat sampling recommended for any suspicious or enlarging lesion at this site. 10/07/2023 12:49 PM CDT [facility] Clinical Information Ms. Adames is a 68 y.o. female with two TR4, 1.6 and 1.9 c right thyroid nodules. 10/07/2023 12:49 PM CDT [facility] Gross Description A) Received identified as [...] LABORATORY Additional Information Cytology is screened at [facility] - [address], [place] [address] and [facility] - [address] [place] [address] and [facility] - [address] [place] [address] Interpreted at [facility] - [address], [place] [address] 10/07/2023 12:49 PM CDT [facility] Aspirate (Right Mid Thyroid) 10/06/2023 2:30 PM CDT 10/07/2023 7:35 AM CDT Specimen obtained by aspiration (specimen) (Right Superior Thyroid) 10/06/2023 2:30 PM CDT 10/07/2023 7:35 AM CDT Dionicio Galo MD PATHOLOGY/CYTOLOGY [facility] [address] [place] [address], * ANTI HCV (01/07/2019 1:40 PM CDT) HEPATITIS C ANTIBODY Non-React shandra Non-React shandra 01/07/2019 8:28 PM CDT [facility] Comment:Antibodies to HCV no t detected; does not exclude the possibility of exposure to HCV. Blood BLOOD SPECIMEN / Unknown Venipuncture / Unknown 01/07/2019 1:40 PM CDT 01/07/2019 1:47 PM CDT Thalia COMBS SEND OUTS [facility] [address] [place] [address], * (ABNORMAL) LIPID PANEL W REFLEX MEASURED LDL (12/08/2018 4:10 PM CDT) CHOLESTEROL,TOTAL 213(H) 100 - 199 mg/dL 12/08/2018 8:47 PM CDT [facility] TRIGLYCERIDES 249(H) <150 mg/dL 12/08/2018 8:47 PM CDT [facility] HDL CHOLESTEROL 49 >40 mg/dL 9 8:47 PM CDT [facility] NON-HDL CHOLESTEROL 164(H) <145 mg/dl 12/08/2018 8:47 PM CDT [facility] CHOL/HDL RATIO 4.35 <4.50 12/08/2018 8:47 PM CDT [facility] LDL CHOLESTEROL 114 <=130 mg/dL 12/08/2018 8:47 PM CDT [facility] PROVIDER ORDERED STATUS RANDOM 12/08/2018 8:47 PM CDT [facility] Blood BLOOD SPECIMEN / Unknown Venipuncture / Unknown 12/08/2018 4:10 PM CDT 12/08/2018 4:37 PM CDT Keon Hong MD CHEMISTRY [facility] [address] [place] [address], from Last 3 Months or Most Recently Relevant to Health Maintenance Advance Directives * Full Code (Latest Code Status on File) Date Activated Date Inactivated Comments 2005 1:25 PM 05/17/2005 7:54 PM * Full Code Date Activated Date Inactivated Comments 2005 9:32 AM 2005 1:25 PM Care Teams Graphics Coordinator Relationship Specialty Start Date End Date Anoop Emery MD [address] [place] [address] PCP - General Family Practice 04/09/21
--- OUTSIDE RECORDS SUMMARY | 2023-12-23 22:00 | XMS_ITS | Clinical Summary ---
Author Organization [facility] Address [address] [place] [address] Care Team Providers Care Director Construction Services Name Role Phone Denise Harris MD Primary Care Provider [phone] Anoop Emery MD Unavailable [phone] Inez Peck MD Unavailable Allergies Active Allergy Reactions Criticality Noted Date [...] mg by mouth 3 times daily Active [place]-3 Fatty Acids (OMEGA 3 PO) Take by [...] of Treatment Not on file Care Teams Director Construction Services Relationship Specialty Start Date End Date Denise Harris MD [facility] [address] [place] [address] PCP - General Internal Medicine 01/17/15 Anoop Emery MD [facility] [address] [place] [address] Referring Physician Family Medicine 09/15/20 Inez Peck MD [address] [place] [address] Urology 09/15/20
--- OUTSIDE RECORDS SUMMARY | 2023-12-23 22:00 | XMS_ITS | Referral Summary ---
Author Organization [place] Address [address] [place] [address] Care Team Providers Care Labor Expediter Name Role Phone Denise Harris MD Primary Care Provider Anoop Emery MD Unavailable [phone] Inez Peck MD Unavailable [phone] Allergies Active Allergy Reactions Criticality Noted Date [...] mg by mouth 3 times daily Active [place]-3 Fatty Acids (OMEGA 3 PO) Take by [...] of Treatment Not on file Care Teams Labor Expediter Relationship Specialty Start Date End Date Denise Harris MD [facility] [address] [place] [address] PCP - General Internal Medicine 01/17/15 Anoop Emery MD [facility] [address] [place] [address] Referring Physician Family Medicine 09/15/20 Inez Peck MD [address] [place] [address] Urology 09/15/20
--- OUTSIDE RECORDS SUMMARY | 2023-12-23 22:01 | XMS_ITS | Referral Summary ---
Author Organization [facility] Address [address] [place] [address] Care Team Providers Care Pastrycook'S Assistant Name Role Phone Elsewhere, Pcp Primary Care Provider Unavailabl e Source Comments Patient records contain information from all sites at [facility]. For routine questions regarding patient records, call [phone] during business hours, M-F 8:00 AM - 5:00 PM Central Time. Record requests for emergency care only can be directed to [phone] at any time.[facility] Encounters Date Type Department Care Team Description 10/14/2023 Clinical Communication Department of Physical Medicine and Rehabilitation in [place], [place] [address] [place] [address] Amor Garrett M.D. Nurse Assessment from Last [...] (11/14/2021): Added automatically from request for surgery [id number] Pain Neuropathic 04/11/2020 Constipation 09/23/2017 Prolapse Vaginal [...] often do you attend chur ch or scientologist services? Never 07/18/2022 Do you belong to any clubs o r organizations such as pentecostal groups, unions, fraternal [...] and heating? Not hard at all 07/18/2022 [facility] - Occupational [...] or slept in a chcf (including now)? No 07/18/2022 Nutrition Answer Date [...] 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, HAZMAT CDL A DRIVER, ODILIA) 07/15/2020 Sex and Gender Information Value [...] on file Medical Devices Implanted Type Area Urgent Care Technician Device Identifier Shelf Expiration Date Model / Serial / Lot Self Drilling Cortex Screw 6mm Implanted:Qty: 5 on 12/24/2021 by Buster Herrera M.D. at [facility] Hardware e.g. pins/screws /rods N/A: Posterior Cervical Depuy Synthes 401.136. 99 / / Self Drilling Cortex Screw 8mm Implanted:Qty: 6 on 12/24/2021 by Buster Herrera M.D. at [facility] Hardware e.g. pins/screws /rods N/A: Posterior Cervical Depuy Synthes 401.13.8 99 / / Miniplate Double Bend 10mm Spacing Implanted:Qty: 3 on 12/24/2021 by Buster Herrera M.D. at [facility] Hardware e.g. pins/screws /rods N/A: Posterior Cervical Depuy Synthes 443.180 / / J J Sig Tib Poly Stab #4 8.0m - Gallo [id number] Implanted:Qty: 1 on 12/18/2011 Knee Implant Other/Legacy - See Implant Description [employer] Description:Device Manufactu rer - J [employer] J [employer]. Body Location - Other. Right. Device Status Text - [id number] [id number]. J J Patella Rev Round 35m - Gallo [id number] Implanted:Qty: 1 on 12/18/2011 Knee Implant Other/Legacy - See Implant Description [employer] Description:Device Manufactu rer - J [employer] J [employer]. Body Location - Other. Right. Device Status Text - [id number] [id number]. Sigma Post Stab.W Lug Fem Sz 5 Rt - Gallo [id number] Implanted:Qty: 1 on 12/18/2011 Knee Implant Other/Legacy - See Implant Description [employer] Description:Device Manufactu rer - J [employer]. Body Location - Other. Right. Device Status Text - [id number] [id number]. Cement Bone Small - Gallo [id number] Implanted:Qty: 1 on 12/18/2011 [facility] Other Shanna Description:Device Manufactu rer - Admire Mariama.. Device Status Text - MISCOTHER-2841. Cement Bone Large - Gallo [id number] Implanted:Qty: 1 on 12/18/2011 [facility] Other [employer]ire Description:Device Manufactu rer - Shanna Mariama.. Device [...] Basic Metabolic Panel (12/24/2021 8:41 PM CDT) [facility] Potassium, S 4.1 3.6 - 5.2 [...] BLOOD ADD-ON Performing Organization Address City/[facility] Co de Phone Number [facility] [address] [place], [place] [phone] [place] [address] [facility] [address] [place] [address] * Sodium, B (12/24/2021 2:57 PM CDT) Sodium, B 135 135 - 145 mmol/L 12/24/2021 2:58 PM CDT [facility] Blood (Blood, Arterial Line) 12/24/2021 2:57 PM CDT 12/24/2021 2:57 PM CDT Milton Davis M.D. LAB BLOOD NON ADD- ON Performing Organization Address [facility] Co de Phone Number [facility] [address] [place] [address], [facility] [address] [place] [address] * (ABNORMAL) Hemoglobin A1c (12/18/2021 12:28 PM [...] Herrera M.D. 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 See document viewer. * Full Code (Latest Code Status on File) Date Activated Date Inactivated Comments 12/24/2021 6:31 PM 12/28/2021 5:21 PM Question Answer Comments Full Code: Discussed Care Teams Pastrycook'S Assistant Relationship Specialty Start Date End Date Elsewhere, Pcp PCP - General Internal Medicine 07/16/22
--- OUTSIDE RECORDS SUMMARY | 2023-12-23 22:01 | XMS_ITS | Encounter Summary ---
Author Organization [facility] Address [address] [place] [address] Care Team Providers Care Molecular Spectroscopist Name Role Phone Elsewhere, Pcp Primary Care Provider Unavailabl e Encounter Details Date Type Department Care Team (Late st Contact Info) Description 08/04/2018 [place] [facility] [address] [place] [address] Anoop Emery M.D. [address] [place] [phone] Other Dyspnea (Primary Dx) Social History Tobacco [...] Total Score: 5 04/29/19 17 10:10 AM NURSE CLINICIAN documented as of this encounter Care Teams Molecular Spectroscopist Relationship Specialty Start Date End Date Elsewhere, Pcp PCP - General Internal Medicine 07/16/22 documented as of this encounter
--- OUTSIDE RECORDS SUMMARY | 2023-12-23 22:01 | XMS_ITS | Continuity of Care Document ---
Author Organization [facility] Address [address] [facility] [place] [address] Phone Care Team Providers Care Admittance Attendant Name Role Phone Logan Hart Unavailable Unavailable [...] Diagnoses Date Provider Providers Copied on Encounter [facility], [address] [place] [address], [id number] , [place] tel:[phone] [facility] Type 2 diabetes mellitus with diabetic neuropathy, unspecified 3 Yoon Ford. [address] [facility] [address], [place], [id number], [place]. tel:[phone] Referring Provider: Anoop Emery, [address], [address]. tel:[phone] [facility], [address] [place] [address], [id number] , [place] tel:[phone] [facility] Type 2 diabetes mellitus with diabetic neuropathy, unspecified 3 Niesha Broderick. [address] [place], [place], [id number], [place]. tel:[phone] Referring Provider: Anoop Emery [facility] [address] [place], [address]. tel:[phone] OFFICE VISIT, EST TELEMEDICINE [facility], [address] [place] [address], [id number] , [place] tel:[phone] [facility] Widespread pain (chief complaint) Type II diabetes mellitus with diabetic neuropathy 3 Kira Bergeron. [address] [facility] [address], [facility] [address], [place], [id number], [place]. tel:[phone] [facility], [address] [place] [address], [id number] , [place] [phone] [facility] [place] pain (chief complaint) Type II diabetes mellitus with diabetic neuropathy 3 Lalitha Sandoval. [address] [place], [place], [id number], [place]. [phone] Psych Dx Eval [facility], [address] [place] [address], [id number] , [place] [phone] Telehealth Pain disorder with related psychological factorsMajor depressive disorder, recurrent, in partial remissionAlcoh ol dependence, in remission 3 Natalia Brice. [address] [place] [address], [id number], [place]. tel:[phone] OFFICE/OUTPAT IENT VISIT, EST [facility], [address] [place] [address], [id number] , [place] [phone] [facility] Widespread pain (chief complaint) Type II diabetes mellitus with diabetic neuropathyChro amie pain syndromeSpinal stenosis, lumbar region without neurogenic claudicationPo stlaminectomy syndrome, not elsewhere classifiedLong term (current) use of opiate analgesic 3 iKra Bergeron. [address] [place] [address], [address], [id number], [place]. tel:[phone] Referring Provider: Anoop Emery [facility] [address] [place], [address]. tel:[phone] [facility], [address] [place] [address], [id number] , [place] tel:[phone] [facility] No Information 3 Kira Bergeron. [address] [facility] [address], [facility] [address], [place], [id number], [place]. tel:[phone] Referring Provider: Anoop Emery [facility] [address] [place], [address]. tel:[phone] OFFICE/OUTPAT IENT VISIT, [facility], [address] [place], [place], [id number] , [place] tel:[phone] [facility] [place] Widespread pain (chief complaint) Chronic pain syndromePostla minectomy syndrome, not elsewhere classifiedLong term (current) use of opiate analgesicEncou nter for therapeutic drug level monitoringSpin al stenosis, lumbar region without neurogenic claudicationTy pe II diabetes mellitus with diabetic neuropathy 3 Kira Elyssa. [address] [facility], [address], [place], [place], [id number], [place]. tel:[phone] Referring Provider: Anoop Emery, [facility] [address] [place], [address]. tel:[phone] Family History Family Member Type Diagnosis Age At Onset No Information Payers Payer name Insurance type Covered constitution party ID Authoriza nithin(s) Blue Cross [place] Complete BL [id number] Social History Type Description Quantity Date [...] due Goal Creatinine. Due on due Goal PADDING GLUER Scanned. Due on 023 due Goal ALT (SGPT). Due on due Goal UDT. Due on due Goal AST (SGOT). Due on due Goal CLIMATOLOGY PROFESSOR Paperwork. Due on due Goal OARS. Due [...] due Goal FIT-DNA. Due on due Goal CLIMATOLOGY PROFESSOR Paperwork. Due on due Goal ALT (SGPT). Due on due Goal PADDING GLUER Scanned. Due on due Goal Order Annual [...] Goal AST (SGOT). Due on due Goal PADDING GLUER Scanned. Due on due Goal ALT (SGPT). Due on due Goal Order Annual PT. Due on due Goal OARS. Due on due Goal UDT. Due on due Goal Creatinine. Due on due Goal CLIMATOLOGY PROFESSOR Paperwork. Due on due Goal Medication Reconciliation. [...] Order Annual PT. Due on due Goal CLIMATOLOGY PROFESSOR Paperwork. Due on due Goal Creatinine. Due [...] due Goal FIT-DNA. Due on due Goal PADDING GLUER Scanned. Due on due Goal UDT. Due [...] Social History. Due o n due Goal PADDING GLUER Scanned. Due on due Goal UDT. Due on due Goal ALT (SGPT). Due on due Goal OARS. Due on due Goal Order Annual PT. Due on due Goal CLIMATOLOGY PROFESSOR Paperwork. Due on due Goal Creatinine. Due on due Goal AST (SGOT). Due on due Goal UDT. Due on due Goal AST (SGOT). Due on due Goal Order Annual PT. Due on due Goal OARS. Due on due Goal ALT (SGPT). Due on due Goal CLIMATOLOGY PROFESSOR Paperwork. Due on due Goal Creatinine. Due on due Goal PADDING GLUER Scanned. Due on due Goal FIT. Due [...] Of Prese nt Illness Widespread pain Comments: Yza presents virtually for SCS trial education. She [...] is for doctors visits. she has a TABLE GAMES SUPERVISOR that comes in and helps her with [...] hx of cervical foraminotomy late 2021 at [facility]. Has an upcoming appt at [facility] regarding her low back pain. Her worst [...] of the patient. Some outside records from [facility] are available for review. Her daughter, Asha, participates in the discussion of care.Yaz is a 67 y/o female here for initial consult for low back, neck, and BL feet pain, referred by Dr. Anoop Emery, through [facility]. Pain has gradually worsened over 20 years ago and started with BL knee pain. Pain is primarily She describes pain as aching, burning, stabbing, crippling, and shooting and rates the pain severity 6/10. She also has a dx of fibromyalgia. Denies hx of low back surgery. Does report a hx of cervical foraminotomy late 2021 at [facility]. After surgery, she noticed improvement in mobility [...] No recent EMG. She has tried PT, long term care administrator, and ESIs, without lasting relief. The patient has previously tried cymbalta, lidocaine patches, and CBD.The patient is currently managed on Lyrica 150mg TID, venlaxafine 225mg AM, oxycodone (once daily), voltaren gel, ibuprofen 800mg TID, hydrochlorothiazide 25mg AM, metformin 500mg (1000mg AM and PM), trazodone 2000mg HS, xarelto 10mg, and pramipexole 0.3275mg 5 tabs/day.Yaz is interested in all treatment options through [facility]. No other concerns today.Of note, patient [...]
--- OUTSIDE RECORDS SUMMARY | 2023-12-23 22:01 | XMS_ITS | Encounter Summary ---
Author Organization [facility] Address [address] [place] [address] Care Team Providers Care Community Outreach Manager Name Role Phone Denise Harris MD Primary Care Provider [phone] Anoop Emery MD Unavailable [phone] Inez Peck MD Unavailable [phone] Inez Peck MD Unavailable [phone] Encounter Details Date Type Department Care Team (Late st Contact Info) Description 10/31/2020 [facility] Medical Advice [facility] [address] 4[address] [place] [address] Inez Peck MD [address] [facility] [address] [place] [address] Social History Tobacco Use Types [...] on filedocumented in this encounter Care Teams Community Outreach Manager Relationship Specialty Start Date End Date Denise Harris MD [address] [address] PCP - General Internal Medicine 01/17/15 Anoop Emery MD [facility] [address] [place] [address] Referring Physician Family Medicine 09/15/20 Inez Peck MD [address] [place] [address] Urology 09/15/20 Inez Peck MD [address] [place] [address] [id number] Assigned Surgical Provider 11/12/20 05/10/22 documented as of this encounter
--- OUTSIDE RECORDS SUMMARY | 2023-12-23 22:01 | XMS_ITS | Encounter Summary ---
Author Organization [facility] Address [address] [place] [address] Care Team Providers Care Autobody Technician Name Role Phone Elsewhere, Pcp Primary Care Provider Unavailabl e Reason for Referral * Outpatient (Routine) - Closed Specialty Diagnoses / Procedures Referred By Contact Referred To Contact Gastroenterology and Hepatology Diagnoses Constipation Rectocele Other Specified Disorders Of Muscle Anoop Emery M.D. [address] [place] [phone] [facility] Referral ID Status Reason Start Date Expiration Date Visits Re quested Visits Authorized [id number] Closed 09/02/2017 09/02/2018 1 1 Encounter Details Date Type Department Care Team (Late st Contact Info) Description 09/01/2017 [facility] [address] [place] [address] Anoop Emery M.D. [address] [place] [id number] Other Specified Disorders Of Muscle (Primary [...] Total Score: 5 04/29/19 17 10:10 AM MEDICAL LAB TECHNICIAN documented as of this encounter Care Teams Autobody Technician Relationship Specialty Start Date End Date Elsewhere, Pcp PCP - General Internal Medicine 07/16/22 documented as of this encounter
--- OUTSIDE RECORDS SUMMARY | 2023-12-23 22:01 | XMS_ITS ---
Author Organization [facility] Address [address] [place] [address] Care Team Providers Care Chronic Care Nurse Name Role Phone Unavailable Unavailable Unavailable Surgery Details Not on file Complications Check Surgery Details section. Procedure Estimated Blood Loss Check Surgery Details section. Procedure Findings Check Surgery Details section. Procedure Specimens Taken Check Surgery Details section.
--- OUTSIDE RECORDS SUMMARY | 2023-12-23 22:01 | XMS_ITS | Encounter Summary ---
Author Organization [facility] Address [address] [place] [address] Care Team Providers Care Health Professor Name Role Phone Elsewhere, Pcp Primary Care Provider Unavailabl e Reason for Visit * Reason Onset Date Comments Nurse Assessment 10/14/2023 Encounter Details Date Type Department Care Team (Latest Contact Info) Description 10/14/2023 Clinical Communication Department of Physical Medicine and Rehabilitation in [place], [place] [address] [place] [address] Amor Garrett M.D. [address] [place] [address] Nurse Assessment Social History Tobacco Use Types [...] often do you attend chur ch or lutheran services? Never 07/18/2022 Do you belong to any clubs o r organizations such as anabaptist groups, unions, fraternal [...] and heating? Not hard at all 07/18/2022 [employer] [facility] Occupat ional Health - Occupational Stress [...] 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, PEGA DEVELOPER, ODILIA) 07/15/2020 Sex and Gender Information Value [...] laminoplasty in 12/2021 at the [facility]. Today she is calling with requesting [...] images be sent to the [facility]. She was told she most likely [...] Total Score: 5 04/29/19 17 10:10 AM MALT HOUSE KILN OPERATOR documented as of this encounter Care Teams Health Professor Relationship Specialty Start Date End Date Elsewhere, Pcp PCP - General Internal Medicine 07/16/22 documented as of this encounter
--- OUTSIDE RECORDS SUMMARY | 2023-12-23 22:01 | XMS_ITS | Continuity of Care Document ---
Author Organization [facility] Address [address] [address] [place] [address] Care Team Providers Care Lead Enterprise Architect Name Role Phone [place], [place] Unavailable Unav ailable Procedures Procedure Date Colono Advance Directives Directive Yes / No Effective Date File Name No Information Encounters Encounter Description Practice Location Reason(s) For Visit Diagnoses Date Provider Providers Copied on Encounter [facility], [address] [address], [place], [place], [id number], [place] [facility] No Information [facility]. [address] [address], [place], [place], [id number], . tel:[phone] Referring Provider: Joanne Grimm MD, [address] [facility] [address], [place], [address] . tel:[phone] Family History Family Member Type Diagnosis Age At Onset No Information Payers Payer name Insurance type Covered constitution party ID Authoriza tion(s) Blue Cross [place] Blue BL [id number] Social History Type Description Quantity Date Captured [...]
--- OUTSIDE RECORDS SUMMARY | 2023-12-23 22:01 | XMS_ITS | Continuity of Care Document ---
Author Organization [facility] Address [address] [place] [phone] Phone Care Team Providers Care Finish Painter Name Role Phone [facility] Unavailable Unava ilable Procedures Procedure Date IMPLANT NEUROELECTRODES Implt neurostim elctr each IMPLANT NEUROELECTRODES Advance Directives Directive Yes / No Effective Date File Name No Information Encounters Encounter Description Practice Location Reason(s) For Visit Diagnoses Date Provider Providers Copied on Encounter [facility], [address] [place] [address], [id number], [place] tel:[phone] [facility] No Information [facility]. [address] [place] [address], [id number], . tel:[phone] Referring Provider: Davie Scherer, [address] [place], [address] . tel:[phone] Family History Family Member Type Diagnosis Age At Onset No Information Payers Payer name Insurance type Covered alliance party ID Authoriza tion(s) Blue Cross [place] Complete BL [id number] Social History Type Description Quantity Date [...]
--- OUTSIDE RECORDS SUMMARY | 2023-12-23 22:01 | XMS_ITS | Encounter Summary ---
Author Organization [facility] Address [address] [place] [address] Care Team Providers Care Major Account Representative Name Role Phone Denise Harris MD Primary Care Provider Anoop Emery MD Unavailable [phone] Inez Peck See Luis Antonio GARZA Unavailable [phone] Inez Peck See Luis Antonio GARZA Unavailable [phone] Encounter Details Date Type Department Care Team (Late st Contact Info) Description 04/09/2018 [facility] [place] [address] Jeanine Ford DPJose Roberto, Podiatry/Foot and Ankle Surgery [address] [place] [address] [address] Foot pain, bilateral (Primary Dx) Social History [...] process of being sent. Geri Taveras, RN BOARD ATTENDANT documented in this encounter Plan of Treatment Not on file documented as of this encounter Visit Diagnoses Diagnosis Foot pain, bilateral- Primary documented in this encounter Care Teams Major Account Representative Relationship Specialty Start Date End Date Denise Harris MD [address] [address] PCP - General Internal Medicine 01/17/15 Anoop Emery MD [address] [address] Referring Physician Family Medicine 09/15/20 Inez Peck MD [address] [place] [address] Urology 09/15/20 Inez Peck MD [address] [place] [address] Assigned Surgical Provider 11/12/20 05/10/22 documented as of this encounter
--- OUTSIDE RECORDS SUMMARY | 2023-12-23 22:01 | XMS_ITS | Continuity of Care Document ---
Author Organization [facility] Address [address] [address] [place] [address] Phone Care Team Providers Care Rainbow Trout Farm Manager Name Role Phone Briana Prabhakar CRNA [...] Diagnoses Date Provider Providers Copied on Encounter [facility], [address] [address], [place], [place], [id number], [place] tel:[phone] [facility] No Information 2 Nahid Warren. [address] [facility], [facility] [address], [place], [place], [id number] , [place]. [phone] Referring Provider: Joanne Grimm MD, [address] [address], [place], [address]. tel:[phone] [facility], [address] [address], [place], [place], [id number], [place] tel:[phone] [facility] GI Symptoms or Concerns (chief complaint) Colorectal polypsEncounter for screening for malignant neoplasm of colonPolyp of colon 2 Sirisha GARZA June. [address] [facility], [facility] [address], [facility] [place], [id number] , [place]. [phone] Referring Provider: Dionicio Galo MD, [address] [place], [address]. tel:[phone] [facility], [address] [address], [place], [place], [id number], [place] tel:[phone] [facility] No Information 2 Sirisha GARZA [address] [facility], [facility] [address], [facility] [place], [id number] , [place]. tel:[phone] [facility], [address] [address], [place], [place], [id number], [place] tel:[phone] [facility] No Information 2 Nahid Ford. [address] [facility], [facility] [address], [place], [place], [id number] , [place]. tel:[phone] Family History Family Member Type Diagnosis Age [...] ional interface ; Source: Other Registry Novel [id number], all formulations administered Note: MIIC bi-direct ional [...] Registry Payers Payer name Insurance type Covered green party ID Authoriza tion(s) Blue Cross [place] Blue BL [id number] Social History Type Description Quantity Date Captured [...]
--- OUTSIDE RECORDS SUMMARY | 2023-12-23 22:01 | XMS_ITS | Clinical Summary ---
Author Organization [facility] Address [address] [place] [address] Care Team Providers Care Watch Manufacturing Supervisor Name Role Phone Elsewhere, Pcp Primary Care Provider Unavailabl e Source Comments Patient records contain information from all sites at [facility]. For routine questions regarding patient records, call [phone] during business hours, M-F 8:00 AM - 5:00 PM Central Time. Record requests for emergency care only can be directed to [phone] at any time.[facility] Allergies Active Allergy Reactions Criticality [...] (11/14/2021): Added automatically from request for surgery [id number] Pain Neuropathic 04/11/2020 Constipation 09/23/2017 Prolapse Vaginal [...] Department of Physical Medicine and Rehabilitation in [place], [place] [address] [place] [address] Amor Garrett M.D. Nurse Assessment from Last [...] often do you attend chur ch or moravian services? Never 07/18/2022 Do you belong to [...] and heating? Not hard at all 07/18/2022 [facility] of Occupat ional Health - Occupational Stress [...] or slept in a mcfp (including now)? No 07/18/2022 Nutrition Answer Date [...] 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, PAPER SAMPLE CLERK, ODILIA) 07/15/2020 Sex and Gender Information Value [...] 1955 FIT 1955 Hepatitis C Screening 1955 Office Visit for Blood Press ure Check / Re-check 1955 Urine Albumin 1955 Hepatitis A Vaccines [...] (Performed elsewhere) Hemoglobin A1C 03/20/2022 12/18/2021, 01/07/2019 Creatinine Level (Kidney Fun ction Test) 01/03/2023 [...] Discontinued 12/18/2021 Medical Devices Implanted Type Area Canoe Inspector Final Device Identifier Shelf Expiration Date Model / Serial / Lot Self Drilling Cortex Screw 6mm Implanted:Qty: 5 on 12/24/2021 by Buster Herrera M.D. at [facility] Hardware e.g. pins/screws /rods N/A: Posterior Cervical Depuy Synthes 401.136. 99 / / Self Drilling Cortex Screw 8mm Implanted:Qty: 6 on 12/24/2021 by Buster Herrera M.D. at [facility] Hardware e.g. pins/screws /rods N/A: Posterior Cervical Depuy Synthes 401.13.8 99 / / Miniplate Double Bend 10mm Spacing Implanted:Qty: 3 on 12/24/2021 by uBster Herrera M.D. at [facility] Hardware e.g. pins/screws /rods N/A: Posterior Cervical Depuy Synthes 443.180 / / J J Sig Tib Poly Stab #4 8.0m - Gallo [id number] Implanted:Qty: 1 on 12/18/2011 Knee Implant Other/Legacy - See Implant Description [employer] Description:Device Manufactu rer - [employer]. Body Location - Other. Right. Device Status Text - [id number] [id number]. J J Patella Rev Round 35m - [place] [id number] Implanted:Qty: 1 on 12/18/2011 Knee Implant Other/Legacy - See Implant Description [employer] Description:Device Manufactu rer - [employer]. Body Location - Other. Right. Device Status Text - [id number] [id number]. Sigma Post Stab.W Lug Fem Sz 5 Rt - [place] [id number] Implanted:Qty: 1 on 12/18/2011 Knee Implant Other/Legacy - See Implant Description [employer] Description:Device Manufactu rer - [employer]. Body Location - Other. Right. Device Status Text - [id number] [id number]. Cement Bone Small - Gallo [id number] Implanted:Qty: 1 on 12/18/2011 Misc Other Shanna Description:Device Manufactu rer - Shanna Mariama.. Device Status Text - [id number]. Cement Bone Large - Gallo [id number] Implanted:Qty: 1 on 12/18/2011 Misc Other Shanna Description:Device Manufactu rer - Jupiter Mariama.. Device Status Text - [id number]. Procedures [...] CDT Abdon Gill M.D. LAB BLOOD ADD-ON [facility] [address] [place] [address], [facility] [address] [place] [address] * Sodium, B (12/24/2021 2:57 PM CDT) Sodium, B 135 135 - 145 mmol/L 12/24/2021 2:58 PM CDT [facility] Blood (Blood, Arterial Line) 12/24/2021 2:57 PM CDT 12/24/2021 2:57 PM CDT Milton Davis M.D. LAB BLOOD NON ADD- ON [facility] [address] [place] [address], [facility] [address] [place] [address] * (ABNORMAL) Hemoglobin A1c (12/18/2021 12:28 PM [...] CDT Buster Herrera M.D. LAB BLOOD ADD-ON [facility] [address] [place] [address], [facility] [address] [place] [address] from Last 3 Months or Most Recently Relevant to Health Maintenance Advance Directives For more information, please contact: [phone] Documents on File Type Date Recorded Patient Back Digger Operator Expl anation Advance Directives 12/17/2011 12:00 AM Leg acy document. See document viewer. * Full Code (Latest Code Status on File) Date Activated Date Inactivated Comments 12/24/2021 6:31 PM 12/28/2021 5:21 PM Question Answer Comments Full Code: Discussed Care Teams Watch Manufacturing Supervisor Relationship Specialty Start Date End Date Elsewhere, Pcp PCP - General Internal Medicine 07/16/22
--- OUTSIDE RECORDS SUMMARY | 2023-12-23 22:01 | XMS_ITS | Continuity of Care Document ---
Author Organization [facility] Address [address] [place] [address] Care Team Providers Care Transit Clerk Name Role Phone Angus Cao CRNA Unavailable Unavailable Procedures Procedure Date Percutaneous Image guided neuromodulatio n or intra Advance Directives Directive Yes / No Effective Date File Name No Information Encounters Encounter Description Practice Location Reason(s) For Visit Diagnoses Date Provider Providers Copied on Encounter [facility], [address] [place], [place], [id number], [facility] No Information Nash Greco. [address] [place], [place], [id number] , . tel:[phone] Referring Provider: Davie Scherer, [address] [place], [address] . tel:[phone] Family History Family Member Type Diagnosis Age At Onset No Information Payers Payer name Insurance type Covered republican ID Authoriza tibrie(s) Blue Cross [place] [id number] Social History Type Description Quantity Date [...]
--- OUTSIDE RECORDS SUMMARY | 2023-12-23 22:01 | XMS_ITS | Continuity of Care Document ---
Author Organization [facility] Address [address] [place] [address] Phone Care Team Providers Care Consulting Psychiatrist Name Role Phone Doug Mars MD Unavailable [...] Copied on Encounter [facility], [address], [place], [place], [id number], [place] tel:[phone] [facility] No Information 2 Jerad Camacho. [facility], [address], [place] [address], [place], [place], [id number], [place]. tel:[phone] Office/Outpa tient Visit,Est, Mod [facility], [address], [place], [place], [id number], [place] tel:[phone] [facility] Spinal stenosis, cervical regionOther forms of scoliosis, site unspecifiedS pondylolysis , site unspecifiedS kevin stenosis, lumbar region with neurogenic claudication 2 Jerad Camacho. [facility] [place], [address], [place] [address], [place], [place], [id number], [place]. tel:[phone] Referring Provider: Anoop uRiz, [facility] [address] [place], [address]. tel:[phone] OFFICE/OUTPA TIENT VISIT EST Phone [facility], [address], [place], [place], [id number], [place] tel:[phone] [facility] No Information 2 Jerad Camacho. [facility] [place], [address] [place] [address], [place] [address], [place], [place], [id number], [place]. tel:[phone] Referring Provider: Anoop Ruiz, [facility] [address] [place], [address]. tel:[phone] Office/Outpa tient Visit,New, Mod [facility], [address], [place], [place], [id number], [place] tel:[phone] [facility] Spinal stenosis, cervical regionSpinal stenosis, lumbar region with neurogenic claudication Other spondylosis, lumbar region No Information Referring Provider: Anoop Ruiz, [facility] [address] [place], [address]. tel:[phone] Office/outpa tient visit,est, low Z [facility], [address], [place], [address], [place] tel:[phone] [facility] No Information 6 No Information Referring Provider: Gordon Boyd, [place] [address] [place], [address]. tel:[phone] Family History Family Member Type Diagnosis Age At Onset No Information Payers Payer name Insurance type Covered republican ID Mele weller(s) [facility] [id number] Medicare [facility] [id number] 1 Social History Type Description Quantity Date [...]
== END 2023-12-22 08:25 | disposition home or self-care (01) ==
LOC: NFLDREF 12-23 21:58
PROVIDERS: PCP Family Medicine; Referring Provider Family Medicine; Visit Provider Family Medicine
DX: E11.9 Type 2 diabetes mellitus without complications (principal); I10 Essential (primary) hypertension; Z79.4 Long term (current) use of insulin; Z79.84 Long term (current) use of oral hypoglycemic drugs; Z13.6 Encounter for screening for cardiovascular disorders
CPT/HCPCS: 80053; 80061; 82043; 82570

== ENCOUNTER 2023-12-24 12:50 | Outpatient (CLI) | payer MEDICARE, BC, SELFPAY ==
--- OUTSIDE RECORDS SUMMARY | 2023-12-24 12:54 | XMS_ITS | Clinical Summary ---
Author Organization [facility] Address [place], [place] [address] Care Team Providers Care Manager Talent Name Role Phone Anoop Emery MD Primary Care Provider [phone] Allergies Active Allergy Reactions Criticality Noted Date [...] nasal solution (FLONASE)Indicati ons:Seasonal allergies Inhale 1 [place] to both nostrils two times daily. 12/28/2021 [...] daily if needed. 12/28/2021 Active fish,bora,flax oils-om3,6,9no1 (Marana 3-6-9) 1,200 mg cap Take 1 capsule. [...] Department Care Team Description 10/06/2023 Lab Requisition [facility] [phone] Dionicio Galo MD from Last 3 Months [...] MD LAB BILL ONLY Performing Organization Address City/State/[facility] Co de Phone Number [facility] [address] [place] [address], * PATH [facility]NA CYTOLOGY ASP CYTOLOGY (10/06/2023 2:30 PM CDT) Case Report Medical Cytology Report ? Case: [id number] ? Authorizing Provider: ??Dionicio Galo MD ?Collected: ? 10/06/2023 1430 ? Ordering Location: ? [facility] ?Received: ?10/07/2023 0735 ? Pathologist: ? Jenifer Fink MD ? Specimens: ?? A) - Right Mid Thyroid, midportion ? B) - Right Superior Thyroid, upper pole ? 10/07/2023 12:49 PM CDT [facility] Final Diagnosis A) THYROID, RIGHT MID, ULTRASOUND GUIDED FINE NEEDLE ASPIRATION: 1. Benign thyroid nodule 2. Negative for malignancy ?? 3. See comment B) THYROID, RIGHT SUPERIOR, ULTRASOUND GUIDED FINE NEEDLE ASPIRATION: 1. Benign thyroid nodule 2. Negative for malignancy 3. See comment 10/07/2023 12:49 PM T [facility] Comment A,B) The risk of malignancy in the follow-up of lesions with this cytologic appearance is low (0-3%). Clinical and radiologic correlation is advised, with repeat sampling recommended for any suspicious or enlarging lesion at this site. 10/07/2023 12:49 PM CDT [facility] Clinical Information Ms. Adames is a 68 y.o. female with two TR4, 1.6 and 1.9 c right thyroid nodules. 10/07/2023 12:49 PM CDT [facility] Gross Description A) Received identified as [...] stained ThinPrep slide 10/07/2023 12:49 PM CDT [facility] Adequacy Assessment 10/07/2023 12:49 PM CDT [facility] Microscopic Description A) Specimen adequacy: Low but adequate cellularity for interpretation. B) Specimen adequacy: Adequate for interpretation. All slides were reviewed. The microscopic appearance substantiates the diagnosis. 10/07/2023 12:49 PM CDT [facility] Additional Information Cytology is screened at [facility] - [address], [place] [address] and [facility] - [address] [place] [address] and [facility] - [address] [place] [address] Interpreted at [facility] - [address], [place] [address] 10/07/2023 12:49 PM CDT [facility] Aspirate (Right Mid Thyroid) 10/06/2023 2:30 PM CDT 10/07/2023 7:35 AM CDT Specimen obtained by aspiration (specimen) (Right Superior Thyroid) 10/06/2023 2:30 PM CDT 10/07/2023 7:35 AM CDT Dionicio Galo MD PATHOLOGY/CYTOLOGY [facility] [address] [place] [address], * ANTI HCV (01/07/2019 1:40 PM CDT) HEPATITIS C ANTIBODY Non-React shandra Non-React shandra 01/07/2019 8:[address] [facility] Comment:Antibodies to HCV no t detected; does not exclude the possibility of exposure to HCV. Blood BLOOD SPECIMEN / Unknown Venipuncture / Unknown 01/07/2019 1:40 PM CDT 01/07/2019 1:47 PM CDT Thalia COMBS SEND OUTS [facility] [address] [place] [address], * (ABNORMAL) LIPID PANEL W REFLEX MEASURED LDL (12/08/2018 4:10 PM CDT) CHOLESTEROL,TOTAL 213(H) 100 - 199 mg/dL 12/08/2018 8:[address] [facility] TRIGLYCERIDES 249(H) <150 mg/dL 12/08/2018 8:[address] [facility] HDL CHOLESTEROL 49 >40 mg/dL 9 8:[address] [facility] NON-HDL CHOLESTEROL 164(H) <145 mg/dl 12/08/2018 8:[address] [facility] CHOL/HDL RATIO 4.35 <4.50 12/08/2018 8:[address] [facility] LDL CHOLESTEROL 114 <=130 mg/dL 12/08/2018 8:[address] [facility] PROVIDER ORDERED STATUS RANDOM 12/08/2018 8:[address] [facility] Blood BLOOD SPECIMEN / Unknown Venipuncture / Unknown 12/08/2018 4:10 PM CDT 12/08/2018 4:37 PM CDT Keon Hong MD CHEMISTRY [facility] [address] [place] [address], from Last 3 Months or Most Recently Relevant to Health Maintenance Advance Directives * Full Code (Latest Code Status on File) Date Activated Date Inactivated Comments 2005 1:25 PM 05/17/2005 7:54 PM * Full Code Date Activated Date Inactivated Comments 2005 9:32 AM 2005 1:25 PM Care Teams Manager Talent Relationship Specialty Start Date End Date Anoop Emery MD [address] [place] [address] PCP - General Family Practice 04/09/21
--- OUTSIDE RECORDS SUMMARY | 2023-12-24 12:54 | XMS_ITS | Clinical Summary ---
Author Organization [facility] Address [address], [place] [address] Care Team Providers Care Manufacturing Recruiter Name Role Phone Thalia Barron PA-C Primary Care Provider Un available Source Comments You are receiving this document as you are listed as the primary care provider,follow-up provider, or the patient has been referred to you for consultation.This is in compliance with the Medicare and[facility] EHR Incentive Program,which states Providers who transition their patient to another setting of careor provider of care or refers their patient to another provider of care shouldprovide summary care record for each transition of care or referral. [facility] Allergies Active Allergy Reactions Criticality Noted Date [...] Instr:for eczema on hand 15 04/26/2009 Active Romayor-3 Fatty Acids ([facility] FISH OIL) 1200 MG [...] 12 04/26/2009 Active nystatin-triamcinolo ne (AKA MYCOLOG-II) 408196-1.1 UNIT/GM-% cream Apply 1 Applicatorful topically 3 [...] Comments Blood Pressure 118/80 05/01/2009 7:20 AM PNEUMATIC TOOL REPAIRER C: Dynamap Pulse 102 05/01/2009 7:20 AM PNEUMATIC TOOL REPAIRER Temperature 36.7 ??C (98.1 ??F) 05/01/2009 7 :20 AM PNEUMATIC TOOL REPAIRER ORAL C: 98.1 F Respiratory Rate 16 05/01/2009 7:20 AM PNEUMATIC TOOL REPAIRER Oxygen Saturation 96% 05/01/2009 7:2 1 AM PNEUMATIC TOOL REPAIRER Inhaled Oxygen Concentration - - Weight - [...] age to complete this topic Care Teams Manufacturing Recruiter Relationship Specialty Start Date End Date Thalia Barron PA-C PCP - General Physician Nanoelectronics Engineer 10/06/18
--- OUTSIDE RECORDS SUMMARY | 2023-12-24 12:54 | XMS_ITS | Referral Summary ---
Author Organization [facility] Address [address] [place] [address] Care Team Providers Care Rn Mental Health Name Role Phone Denise Harris MD Primary Care Provider Anoop Emery MD Unavailable [phone] Inez Peck MD Unavailable [phone] Allergies Active Allergy Reactions Criticality Noted Date [...] mg by mouth 3 times daily Active [place]-3 Fatty Acids (OMEGA 3 PO) Take by [...] of Treatment Not on file Care Teams Rn Mental Health Relationship Specialty Start Date End Date Denise Harris MD [facility] [address] [place] [address] PCP - General Internal Medicine 01/17/15 Anoop Emery MD [facility] [address] [place] [address] Referring Physician Family Medicine 09/15/20 Inez Peck MD [address] [place] [id number] Urology 09/15/20
--- OUTSIDE RECORDS SUMMARY | 2023-12-24 12:54 | XMS_ITS | Clinical Summary ---
Author Organization [facility] Address [address] [place] [address] Care Team Providers Care Seamark Advanced Operator Maintainer Name Role Phone Denise Harris MD Primary Care Provider Anoop Emery MD Unavailable [phone] Inez Peck MD Unavailable [phone] Allergies Active Allergy Reactions Criticality Noted Date [...] mg by mouth 3 times daily Active Concord-3 Fatty Acids (OMEGA 3 PO) Take by [...] of Treatment Not on file Care Teams Seamark Advanced Operator Maintainer Relationship Specialty Start Date End Date Denise Harris MD [facility] [address] [place] [address] PCP - General Internal Medicine 01/17/15 Anoop Emery MD [facility] [address] [place] [address] Referring Physician Family Medicine 09/15/20 Inez Peck MD [address] [place] [address]52[address] Urology 09/15/20
--- OUTSIDE RECORDS SUMMARY | 2023-12-24 12:55 | XMS_ITS | Encounter Summary ---
Author Organization [facility] Address [address] [place] [address] Care Team Providers Care Pig Sticker Name Role Phone Denise Harris MD Primary Care Provider Anoop Emery MD Unavailable [phone] Inez Peck MD Unavailable [phone] Inez Peck MD Unavailable [phone] Encounter Details Date Type Department Care Team (Late st Contact Info) Description 10/31/2020 MyC Medical Advice [facility] [address] 4[address] [place] [address] Inez Peck MD [address] [facility] [address] [place] [address] Social History Tobacco Use Types [...] on filedocumented in this encounter Care Teams Pig Sticker Relationship Specialty Start Date End Date Denise Harris MD [address] [address] PCP - General Internal Medicine 01/17/15 Anoop Emery MD [facility] [address] [place] [address] Referring Physician Family Medicine 09/15/20 Inez Peck MD [address] [place] [address] Urology 09/15/20 Inez Peck MD [address] [place] [address]60[address] Assigned Surgical Provider 11/12/20 05/10/22 documented as of this encounter
--- OUTSIDE RECORDS SUMMARY | 2023-12-24 12:55 | XMS_ITS | Encounter Summary ---
Author Organization [facility] Address [address] [place] [address] Care Team Providers Care Claims Examiner Name Role Phone Denise Harris MD Primary Care Provider Anoop Emery MD Unavailable [phone] Inez Peck See Luis Antonio GARZA Unavailable [phone] Inez Peck See Luis Antonio GARZA Unavailable [phone] Encounter Details Date Type Department Care Team (Late st Contact Info) Description 04/09/2018 [facility] [place] [address] Jeanine Ford DPJose Roberto, Podiatry/Foot and Ankle Surgery [address] [address] Foot pain, bilateral (Primary Dx) Social History [...] process of being sent. Geri Taveras, RN E MAKER documented in this encounter Plan of Treatment Not on file documented as of this encounter Visit Diagnoses Diagnosis Foot pain, bilateral- Primary documented in this encounter Care Teams Claims Examiner Relationship Specialty Start Date End Date Denise Harris MD [address] [address] PCP - General Internal Medicine 01/17/15 Anoop Emery MD [address] [address] Referring Physician Family Medicine 09/15/20 Inez Peck MD [address] [place] [address] Urology 09/15/20 Inez Peck MD [address] [place] [address] Assigned Surgical Provider 11/12/20 05/10/22 documented as of this encounter
--- OUTSIDE RECORDS SUMMARY | 2023-12-24 12:57 | XMS_ITS | Continuity of Care Document ---
Author Organization [facility] Address [address] [place] [address] Phone Care Team Providers Care Regional Training Manager Name Role Phone [facility] Unavailable Unava ilable Procedures Procedure Date IMPLANT NEUROELECTRODES Implt neurostim elctr each IMPLANT NEUROELECTRODES Advance Directives Directive Yes / No Effective Date File Name No Information Encounters Encounter Description Practice Location Reason(s) For Visit Diagnoses Date Provider Providers Copied on Encounter [facility], [address] [place] [address], [id number], [place] tel:[phone] [facility] No Information [facility]. [address] [place] [address], [id number], . tel:[phone] Referring Provider: Davie Scherer, [address] [place], [address] . tel:[phone] Family History Family Member Type Diagnosis Age At Onset No Information Payers Payer name Insurance type Covered libertarian ID Authoriza tion(s) Blue Cross [place] Complete BL [id number] Social History Type Description Quantity Date [...]
--- OUTSIDE RECORDS SUMMARY | 2023-12-24 12:57 | XMS_ITS | Continuity of Care Document ---
Author Organization [facility] Address [address] [place] [address] Phone Care Team Providers Care Roll Forming Machine Operator Name Role Phone Doug Mars MD [...] Copied on Encounter [facility], [address], [place], [place], [id number], [place] tel:[phone] [facility] No Information 2 Jerad Camacho. [facility], [address], [place] [address], [place], [place], [id number], [place]. tel:[phone] Office/Outpa tient Visit,Est, Mod [facility], [address], [place], [place], [id number], [place] tel:[phone] [facility] Spinal stenosis, cervical regionOther forms of scoliosis, site unspecifiedS pondylolysis , site unspecifiedS kevin stenosis, lumbar region with neurogenic claudication 2 Jerad Camacho. [facility] [place], [address], [place] [address], [place], [place], [id number], [place]. tel:[phone] Referring Provider: Anoop Ruiz, [facility] [address] [place], [address]. tel:[phone] OFFICE/OUTPA TIENT VISIT EST Phone [facility], [address], [place], [place], [id number], [place] tel:[phone] [facility] No Information 2 Jerad Camacho. [facility] [place], [address] [place] [address], [place] [address], [place], [place], [id number], [place]. tel:[phone] Referring Provider: Anoop Ruiz, [facility] [address] [place], [address]. tel:[phone] Office/Outpa tient Visit,New, Mod [facility], [address], [place], [place], [id number], [place] tel:[phone] [facility] Spinal stenosis, cervical regionSpinal stenosis, lumbar region with neurogenic claudication Other spondylosis, lumbar region No Information Referring Provider: Anoop Ruiz, [facility] [address] [place], [address]. tel:[phone] Office/outpa tient visit,est, low Z [facility], [address], [place], [address], [place] tel:[phone] [facility] No Information 6 No Information Referring Provider: Gordon Boyd, [place] [address] [place], [address]. tel:[phone] Family History Family Member Type Diagnosis Age At Onset No Information Payers Payer name Insurance type Covered green party ID Mele weller(s) [facility] [id number] Medicare [facility] [id number] Social History Type Description Quantity Date [...]
--- OUTSIDE RECORDS SUMMARY | 2023-12-24 12:57 | XMS_ITS | Continuity of Care Document ---
Author Organization [facility] Address [address] [facility] [place] [address] Phone Care Team Providers Care Can Sterilizer Name Role Phone Logan Hart Unavailable Unavailable [...] No Longer Active Procedures Procedure Date [facility] Lead Pull Satellite No Charge For Visit Per Prov IMPLANT NEUROELECTRODES ANALYZE NEUROSTIM, COMPLEX IMPLANT NEUROELECTRODES OFFICE VISIT, EST TELEMEDICINE 23 PT EVAL MOD COMPLEX 30 MIN Psych Dx Eval OFFICE/OUTPATIENT VISIT, EST Drug test def 8-14 classes Drug Urine Toxology With Chromatography OFFICE/OUTPATIENT VISIT, NEW Advance Directives Directive Yes / No Effective Date File Name No Information Encounters Encounter Description Practice Location Reason(s) For Visit Diagnoses Date Provider Providers Copied on Encounter [facility], [address] [place] [address], [id number] , [place] tel:[phone] [facility] Type 2 diabetes mellitus with diabetic neuropathy, unspecified 3 Yoon Ford. [address] [facility] [address] [facility] [address] [place], [place], [id number], [place]. tel:[phone] Referring Provider: Anoop Emery, [address], [address]. tel:[phone] [facility], [address] [place] [address], [id number] , [place] tel:[phone] [facility] Type 2 diabetes mellitus with diabetic neuropathy, unspecified 3 Niesha Broderick. [address] [place], [place], [id number], [place]. tel:[phone] Referring Provider: Anoop Emery [facility] [address] [place], [address]. tel:[phone] OFFICE VISIT, EST TELEMEDICINE [facility], [address] [place] [address], [id number] , [place] tel:[phone] [facility] Widespread pain (chief complaint) Type II diabetes mellitus with diabetic neuropathy 3 Kira Bergeron. [address] [facility] 11, [facility] [address] [employer], [place], [id number], [place]. tel:[phone] [facility], [address] [place] [address], [id number] , [place] [phone] [facility] [place] pain (chief complaint) Type II diabetes mellitus with diabetic neuropathy 3 Lalitha Sandoval. [address] [place], [place], [id number], [place]. [phone] Eval [facility], [address] [place] [address], [id number] , [place] [phone] Telehealth Pain disorder with related psychological factorsMajor depressive disorder, recurrent, in partial remissionAlcoh ol dependence, in remission 3 Natalia Brice. [address] [place] [address], [id number], [place]. tel:[phone] OFFICE/OUTPAT IENT VISIT, EST [facility], [address] [place] [address], [id number] , [place] [phone] [facility] Widespread pain (chief complaint) Type II diabetes mellitus with diabetic neuropathyChro amie pain syndromeSpinal stenosis, lumbar region without neurogenic claudicationPo stlaminectomy syndrome, not elsewhere classifiedLong term (current) use of opiate analgesic 3 Kira Bergeron. [address] [place] [address], [address], [id number], [place]. tel:[phone] Referring Provider: Anoop Emery [facility] [address] [place], [address]. tel:[phone] [facility], [address] [place] [address], [id number] , [place] tel:[phone] [facility] No Information 3 Kira Bergeron. [address] [facility] 11, [facility] [address] [employer], [place], [id number], [place]. tel:[phone] Referring Provider: Anoop Emery [facility] [address] [place], [address]. tel:[phone] OFFICE/OUTPAT IENT VISIT, [facility], [address], [place], [id number] , [place] tel:[phone] [facility] [place] Widespread pain (chief complaint) Chronic pain syndromePostla minectomy syndrome, not elsewhere classifiedLong term (current) use of opiate analgesicEncou nter for therapeutic drug level monitoringSpin al stenosis, lumbar region without neurogenic claudicationTy pe II diabetes mellitus with diabetic neuropathy 3 Kira Elyssa. [address] [facility] [facility] [address], [address], [place], [place], [id number], [place]. tel:[phone] Referring Provider: Anoop Emery, [facility] [address] [place], [address]. tel:[phone] Family History Family Member Type Diagnosis Age At Onset No Information Payers Payer name Insurance type Covered republican ID Authoriza nithin(s) Blue Cross [place] Complete [place] [id number] Social History Type Description Quantity Date Captured Comments Alcohol Use Details Unknown Caffeine Use Details Unknown Tobacco Use Status No Information Smoking Status No Information Sex Female Chief Complaint And Reason For Visit No Information Reason For Referral Reason For Referral No Information Plan Of Treatment Date Type Action Status Goal Medication Reconciliation. D ue on due Goal CT-Colonography. Due on due [...] due Goal FIT-DNA. Due on due Goal Order Annual PT. Due on due Goal Creatinine. Due on due Goal MATH INTERVENTIONIST Scanned. Due on due Goal ALT (SGPT). Due on due Goal UDT. Due on due Goal AST (SGOT). Due on due Goal CAT SCAN TECH Paperwork. Due on due Goal OARS. Due on due Goal Weight. Due on d ue Goal Review Allergy List. Due on due Goal MATH INTERVENTIONIST Scanned. Due on due Goal PHQ-9. Due on du e Goal Review Allergy List. Due on due Goal FIT. Due on due Goal Lipid panel. Due on due Goal Weight. Due on d ue Goal Height. Due on d ue Goal Hepatitis C screening. Due o n due Goal Order Annual PT. Due on due Goal UDT. Due on due Goal Creatinine. Due on due Goal OARS. Due on due Goal AST (SGOT). Due on due Goal Update Social History. Due o n due Goal Medication Reconciliation. D ue on due Goal CT-Colonography. Due on due Goal Unhealthy drug use screening . Due on due Goal Tobacco Use. Due on due Goal Zoster vaccine (1st). Due on due Goal FIT-DNA. Due on due Goal CAT SCAN TECH Paperwork. Due on due Goal ALT (SGPT). Due on due Goal CT-Colonography. Due on due Goal Update Social History. Due o n due Goal AST (SGOT). Due on due Goal MATH INTERVENTIONIST Scanned. Due on due Goal ALT (SGPT). Due on due Goal Order Annual PT. Due on due Goal OARS. Due on due Goal UDT. Due on due Goal Creatinine. Due on due Goal CAT SCAN TECH Paperwork. Due on due Goal Medication Reconciliation. [...] Order Annual PT. Due on due Goal CAT SCAN TECH Paperwork. Due on due Goal Creatinine. Due on due Goal AST (SGOT). Due on due Goal FIT. Due on due Goal CT-Colonography. Due on due Goal Height. Due on d ue Goal PHQ-9. Due on du e Goal Zoster vaccine (1st). Due on due Goal Update Social History. Due o n due Goal Weight. Due on d ue Goal Unhealthy drug use screening . Due on due Goal Lipid panel. Due on due Goal Hepatitis C screening. Due o n due Goal Tobacco Use. Due on due Goal FIT-DNA. Due on due Goal MATH INTERVENTIONIST Scanned. Due on due Goal UDT. Due on due Goal Creatinine. Due on due Goal AST (SGOT). Due on due Goal CAT SCAN TECH Paperwork. Due on due Goal Order Annual PT. Due on due Goal OARS. Due on due Goal ALT (SGPT). Due on due Goal UDT. Due on due Goal MATH INTERVENTIONIST Scanned. Due on due Goal Update Social [...] Goal ALT (SGPT). Due on due Goal CAT SCAN TECH Paperwork. Due on due Goal Creatinine. Due on due Goal MATH INTERVENTIONIST Scanned. Due on due Goal FIT. Due [...] Date Complaint History Of Prese nt Illness Comments: Yaz presents virtually for SCS trial education. She is scheduled for a [employer] SCS trial on 10/29/[address] Scherer. Widespread pain pain Patient is a 67 year old [...] is for doctors visits. she has a REGIONAL GUIDE that comes in and helps her with [...] patient elected to proceed with the visit. Comments: Yaz is a 67 y/o female here for initial follow up for low back, neck, and BL feet pain. Pain has gradually worsened over 20 years ago and started with BL knee pain. She also has a dx of fibromyalgia. Denies hx of low back surgery. Does report a hx of cervical foraminotomy late 2021 at [facility]. Has an upcoming appt at [facility] regarding her low back pain. Her worst [...] home. No other concerns today. Widespread pain Duration: chroni c. The client describes it as achy and tingling. It occurs persistently. The problem is fluctuating. Symptom is aggravated by running, standing, walking, housework, movement, stairs and twisting. Relieving factors include rest, heat, Rx Meds and changing positions. Pertinent negatives include diarrhea, fatigue, fever and incontinence (urinary). Widespread pain Severity level i s 6. [...] of the patient. Some outside records from [facility] are available for review. Her daughter, Asha, participates in the discussion of care.Yaz is a 67 y/o female here for initial consult for low back, neck, and BL feet pain, referred by Dr. Anoop Emery, through [facility]. Pain has gradually worsened over 20 years ago and started with BL knee pain. Pain is primarily She describes pain as aching, burning, stabbing, crippling, and shooting and rates the pain severity 6/10. She also has a dx of fibromyalgia. Denies hx of low back surgery. Does report a hx of cervical foraminotomy late 2021 at [facility]. After surgery, she noticed improvement in mobility [...] No recent EMG. She has tried PT, rn progressive care, and ESIs, without lasting relief. The patient has previously tried cymbalta, lidocaine patches, and CBD.The patient is currently managed on Lyrica 150mg TID, venlaxafine 225mg AM, oxycodone (once daily), voltaren gel, ibuprofen 800mg TID, hydrochlorothiazide 25mg AM, metformin 500mg (1000mg AM and PM), trazodone 2000mg HS, xarelto 10mg, and pramipexole 0.3275mg 5 tabs/day.Yaz is interested in all treatment options through [facility]. No other concerns today.Of note, patient [...]
--- OUTSIDE RECORDS SUMMARY | 2023-12-24 12:57 | XMS_ITS | Continuity of Care Document ---
Author Organization [facility] Address [address] [place] [address] Care Team Providers Care Geographic Information System Analyst Name Role Phone Angus Cao CRNA Unavailable Unavailable Procedures Procedure Date Percutaneous Image guided neuromodulatio n or intra Advance Directives Directive Yes / No Effective Date File Name No Information Encounters Encounter Description Practice Location Reason(s) For Visit Diagnoses Date Provider Providers Copied on Encounter [facility], [address] [place], [place], [id number], [facility] No Information Nash Greco. [address] [place], [place], [id number] , . tel:[phone] Referring Provider: Davie Scherer, [address] [place], [address] . tel:[phone] Family History Family Member Type Diagnosis Age At Onset No Information Payers Payer name Insurance type Covered alliance party ID Authoriza tibrie(s) Blue Cross [place] Complete [place] [id number] Social History Type Description Quantity Date [...]
--- NOTE | 2023-12-24 13:00 | CRLHL7_ITS ---
For Patients: As a result of the Century Cures Act, medical imaging exams and procedure reports are released immediately into your electronic medical record. You may view this report before your referring provider. If you have questions, please contact your health care provider. INDICATION: Neck pain. COMPARISON: 01/12/2022. 03/08/2021 Technique Sagittal T1, T2, and STIR sequences. Axial T2/gradient sequences. FINDINGS: Normal vertebral body and facet alignment. No fractures. No vertebral body loss of height. No spine listhesis. No ligamentous injury. No suspicious osseous lesions. Normal cord signal. No intradural mass or lesion. C1-2: No spinal canal narrowing. C2-3: Disc generation posted disc bulge. No narrowing of spinal canal. Mild narrowing of the right neural foramen. No narrowing of the left neural foramen. C3-4: Disc generation posted disc bulging disc osteophyte complex. No narrowing of the spinal canal. Moderate right neural foraminal narrowing. No narrowing of the left neural foramen. C4-5: Disc generation posted disc bulging disc osteophyte complex. Mild narrowing of spinal canal. Moderate severe right and mild left neural foraminal narrowing. Potential impingement of the right C5 nerve root. C5-6: Disc generation broad-based disc osteophyte complex. Mild narrowing of the spinal canal. Moderate narrowing of bilateral foramina. C6-7: Disc generation and posted disc bulge disc osteophyte complex. No narrowing of the spinal canal. Mild narrowing of bilateral foramina. C7-T1: No spinal canal or neural foraminal narrowing. No spinal canal or neural foraminal narrowing in the visualized upper thoracic spine. IMPRESSION: 1. Normal alignment. No fractures. 2. Interval progression of cervical spondylosis 3. Normal cord signal. 4. At C2-3, mild narrowing of the right neural foramen 5. At C3-4, moderate narrowing of the right neural foramen 6. At C4-5, moderate to severe right and mild left neural foraminal narrowing. Potential impingement of the right C5 nerve root. 7. At C5-6, moderate narrowing of the bilateral neural foramina 8. At C6-7, mild narrowing of the bilateral neural foramina Dictated by Be Larose MD @ 12/25/2023 12:32:08 PM (Electronically Signed)
--- NOTE | 2023-12-24 13:45 | CRLHL7_ITS ---
For Patients: As a result of the Century Cures Act, medical imaging exams and procedure reports are released immediately into your electronic medical record. You may view this report before your referring provider. If you have questions, please contact your health care provider. INDICATION: Thoracic spine pain. COMPARISON: Sagittal T1, T2, and STIR sequences. Axial T2/gradient sequences. FINDINGS: Normal vertebral body facet alignment. No fractures. No vertebral body loss of height. No spondylosis. No ligamentous injury. Normal marrow signal. No suspicious osseous lesions. Thoracic spondylosis with multilevel disc degeneration and facet arthropathy. T1-2: Disk generation posted disc bulge. No narrowing of spinal canal. No neural foraminal narrowing. T6-7: Disc generation left paracentral disc protrusion or disc osteophyte complex measured approximately 3 mm in short axis. Effacement of the left ventral aspect of thecal sac. Mild narrowing of the spinal canal. Mild narrowing of bilateral foramina. T8-9: Disc generation. No narrowing of spinal canal. No neural foraminal narrowing. T9-10: Disk degeneration. No splenic no neural foraminal narrowing. T10-11: Disc generation posted disc bulge. No narrowing of spinal canal. Mild narrowing of bilateral foramina. No spinal canal or neural foraminal narrowing at remaining levels. IMPRESSION: 1. Normal alignment. No fractures. 2. Normal cord signal. No intradural mass or lesion. 3. Thoracic spondylosis. 4. At T6-7, mild narrowing of the spinal canal and bilateral neural foramina 5. At T10-11, mild narrowing of the bilateral neural foramina. 6. No spinal canal or neural foraminal narrowing at the remaining levels Dictated by Be Larose MD @ 12/25/2023 12:55:02 PM (Electronically Signed)
--- NOTE | 2023-12-24 14:30 | CRLHL7_ITS ---
For Patients: As a result of the Century Cures Act, medical imaging exams and procedure reports are released immediately into your electronic medical record. You may view this report before your referring provider. If you have questions, please contact your health care provider. INDICATION: Lumbar stenosis. COMPARISON: 01/25/2021. Technique Sagittal T1, T2, and STIR sequences. Axial T1 and T2 weighted sequences. FINDINGS: Lumbar curve convex to the right. In sagittal plane, degenerative grade 1 anterolisthesis of L4 on L5 measures approximately 4 mm. Otherwise, normal alignment. No fractures. No vertebral body loss of height. No ligamentous injury. No suspicious osseous lesions. Normal conus terminates at L1. T11-12: No spinal canal or neural foraminal narrowing. T12-L1: Disc generation posted disc bulge. Mild narrowing of spinal canal. No neural foraminal narrowing. L1-2: Disc degeneration loss of disc height. Modic type 2 endplate changes. Diffuse disc bulge eccentric to the left. Moderate narrowing of spinal canal. Left subarticular recess narrowing with impingement of the traversing left L2 nerve root. Mild right and moderate left neural foraminal narrowing. Mild os arthropathy. L2-3: Disc degeneration loss disc height. Modic type 2 endplate changes. Diffuse disc bulge and endplate osteophytic ridging. Moderate severe narrowing of the spinal canal. Central impingement of the traversing L3 nerve roots. Moderate narrowing of bilateral foramina. L3-4: Disc degeneration. Diffuse disc bulge. Combined with ligament flavum facet hypertrophy, there is moderate severe narrowing of spinal canal. Potential impingement of the traversing L4 nerve roots. Moderate right and moderate severe left neural foraminal narrowing. Potential impingement of the exiting left L2 nerve root. Moderate facet arthropathy. L4-5: Disc degeneration posterior disc bulge. Combined with ligamentum flavum and facet arthropathy, there is moderate severe narrowing of spinal canal. Impingement of the traversing right L5 nerve root. Moderate right and mild left neural foraminal narrowing. Severe facet arthropathy. L5-S1: Disc degeneration. No spinal canal narrowing. No neural foraminal narrowing. Mild facet arthropathy. Degenerative changes of the SI joints. IMPRESSION: 1. Lumbar curve convex to the right. 2. Degenerative grade 1 anterolisthesis of L4 on L5. Otherwise, normal alignment. No fractures 3. Lumbar spondylosis. 4. At L1-2, moderate narrowing of the spinal canal. Impingement of the traversing left L2 nerve root. 5. Moderate to severe narrowing of the spinal canal at L2-3, L3-4 and L4-5. 6. At L3-4, moderate to severe narrowing of the left neural foramen. Dictated by Be Larose MD @ 12/25/2023 1:00:09 PM (Electronically Signed)
== END 2023-12-24 12:51 | disposition home or self-care (01) ==
LOC: MRI 12:52
PROVIDERS: PCP Family Medicine; Visit Provider Family Medicine
DX: M54.2 Cervicalgia (principal); M54.6 Pain in thoracic spine; M51.24 Other intervertebral disc displacement, thoracic region; M48.061 Spinal stenosis, lumbar region without neurogenic claudication; M51.26 Other intervertebral disc displacement, lumbar region; M48.02 Spinal stenosis, cervical region; M54.50 Low back pain, unspecified; G89.29 Other chronic pain
CPT/HCPCS: 72141; 72146; 72148

== ENCOUNTER 2024-02-04 13:47 | Outpatient (CLI) | payer MEDICARE, BC, SELFPAY ==
--- OUTSIDE RECORDS SUMMARY | 2024-02-04 13:51 | XMS_ITS | Clinical Summary ---
Author Organization [facility] Address [address] [place] [address] Care Team Providers Care Hoop Puncher Name Role Phone Denise Harris MD Primary Care Provider Anoop Emery MD Unavailable [phone] Inez Peck MD Unavailable [phone] Allergies Active Allergy Reactions Criticality Noted Date Comments Food Diarrhea 02/06/2015 Red Beets Medications DULoxetine (CYMBALTA) 60 MG capsule Take 60 mg by mouth 2 times daily Active eszopiclone (LUNESTA) 2 MG tablet Take 2 mg by mouth At Bedtime Active hydrochlorothiaz rob (HYDRODIURIL) 25 MG tablet Take 25 mg by mouth daily Active sennosides (SENOKOT) 8.6 MG tablet Take 1 tablet by mouth 2 times daily Active pregabalin (LYRICA) 150 MG capsule Take 150 mg by mouth 3 times daily Active [place]-3 Fatty Acids (OMEGA 3 PO) Take by mouth 2 times daily Active Turmeric 500 MG CAPS Take by mouth 2 times daily Active Coenzyme Q10 (COQ10) 200 MG CAPS Take by mouth daily Active Ginkgo Biloba 40 MG TABS Take 120 mg by mouth daily Active Multiple Vitamins-Mineral s (WOMENS DAILY FORMULA PO) Take by mouth [...] Active silver sulfADIAZINE (SILVADENE) 1 % external creamIndications :Foot pain, bilateral,Ingrow n nail of great toe of left foot,Ingrown nail of second toe of left foot,Pes planus of both feet,Plantar fasciitis, bilateral,Achill es tendonitis, bilateral Apply topically 2 times daily Apply to left toes 2x a day. 25 g 1 9 Active metFORMIN (GLUCOPHAGE) 500 MG tablet Take 500 mg by mouth 7 Active venlafaxine (EFFEXOR-XR) 150 MG 24 hr capsule TAKE 1 CAPSULE BY MOUTH DAILY FOR A TOTAL DOSE OF 225 1 Active valACYclovir (VALTREX) 500 MG tablet Twice A Day 1 Active traZODone (DESYREL) 100 MG tablet Bedtime 5 Active pramipexole (MIRAPEX) 0.125 MG tablet Daily as needed 1 Active loratadine (CLARITIN) 10 MG tablet Take 1 tablet by mouth daily 1 Active FLOVENT HFA 110 MCG/ACT inhaler INHALE 1 PUFF BY MOUTH TWICE DAILY 1 Active Active Problems Problem Noted Date Diagnosed Date Obesity GERD (gastroesophageal reflux disease) IBS (irritable bowel syndrome) CARLOS (obstructive sleep apnea) Overview (02/03/2015): CPAP Depression Fibromyalgia Hypertension Chronic pain syndrome Diabetes mellitus, type II Restless leg syndrome Chronic insomnia Diastolic dysfunction Bilateral pulmonary embolism Overview (02/03/2015): 2009 Social History Tobacco Use Types Packs/Day Years Used Date Smoking Tobacco: Former Smokeless Tobacco: Never Tobacco Cessation:Counseling Given: Yes Comments:quit 1986 Alcohol Use Standard Drinks/Week Comments Not Asked 0 (1 standard drink = 0.6 oz pur e alcohol) PHQ-2 Answer Date Recorded PHQ-2 Score 1 11/02/2020 Adolescent Education Answer Date Record ed Getting School Help Needed Not on file 12/30 Comments No Sex and Gender Information Value Date Recorded Sex Assigned at Female 10/30/2020 4:00 PM CDT Legal Sex Female 3:37 AM DIRECTOR OF ACCREDITATION Gender Identity Female 10/30/2020 4:00 PM CDT [...] CDT Plan of Treatment Not on file Insurance MEDICARE [facility] Care Teams Hoop Puncher Relationship Specialty Start Date End Date Denise Harris MD [facility] [address] [place] [address] PCP - General Internal Medicine 01/17/15 Anoop Emery MD [facility] [address] [place] [address] Referring Physician Family Medicine 09/15/20 Inez Peck MD [address] [place] [id number] Urology 09/15/20
--- OUTSIDE RECORDS SUMMARY | 2024-02-04 13:51 | XMS_ITS | Clinical Summary ---
Author Organization [facility] Address [address] [address] Care Team Providers Care Loss Control Engineer Name Role Phone Thalia Barron PA-C Primary Care Provider Un available Source Comments You are receiving this document as you are listed as the primary care provider,follow-up provider, or the patient has been referred to you for consultation.This is in compliance with the Medicare and[facility] EHR Incentive Program,which states Providers who transition their patient to another setting of careor provider of care or refers their patient to another provider of care shouldprovide summary care record for each transition of care or referral. Axcient Allergies Active Allergy Reactions Criticality Noted Date [...] Instr:for eczema on hand 15 04/26/2009 Active Rosser-3 Fatty Acids ([facility] FISH OIL) 1200 MG [...] 12 04/26/2009 Active nystatin-triamcinolo ne (AKA MYCOLOG-II) 740595-1.1 UNIT/GM-% cream Apply 1 Applicatorful topically 3 [...] Comments Blood Pressure 118/80 05/01/2009 7:20 AM PACKER C: Dynamap Pulse 102 05/01/2009 7:20 AM PACKER Temperature 36.7 C (98.1 F) 05/01/2009 7:20 AM PACKER ORAL C: 98.1 F Respiratory Rate 16 05/01/2009 7:20 AM PACKER Oxygen Saturation 96% 05/01/2009 7:2 1 AM PACKER Inhaled Oxygen Concentration - - Weight - [...] age to complete this topic Care Teams Loss Control Engineer Relationship Specialty Start Date End Date Thalia Barron PA-C PCP - General Physician Shovel Operator 10/06/18
--- OUTSIDE RECORDS SUMMARY | 2024-02-04 13:51 | XMS_ITS | Referral Summary ---
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
--- OUTSIDE RECORDS SUMMARY | 2024-02-04 13:51 | XMS_ITS | Clinical Summary ---
Author Organization [employer] [facility] [employer] Address [place], [place] [address] Care Team Providers Care Wind Turbine Technician Name Role Phone Anoop Emery MD Primary Care Provider [phone] Allergies Active Allergy Reactions Criticality Noted Date [...] nasal solution (FLONASE)Indicati ons:Seasonal allergies Inhale 1 [place] to both nostrils two times daily. 12/28/2021 [...] daily if needed. 12/28/2021 Active fish,bora,flax oils-om3,6,9no1 ([place] 3-6-9) 1,200 mg cap Take 1 capsule. [...] 87 09/05/2021 2:54 PM CDT Temperature 36.8 C (98.3 F) 06/13/2021 4:56 PM CDT Respiratory Rate 18 [...] shandra 01/07/2019 8:28 PM CDT [facility] Comment:Antibodies to HCV no t detected; does not exclude the possibility of exposure to HCV. Blood BLOOD SPECIMEN / Unknown Venipuncture / Unknown 01/07/2019 1:40 PM CDT 01/07/2019 1:47 PM CDT Thalia COMBS SEND OUTS [facility] [address] [place] [address], [place] * (ABNORMAL) LIPID PANEL W REFLEX MEASURED LDL (12/08/2018 4:10 PM CDT) CHOLESTEROL,TOTAL 213(H) 100 - 199 mg/dL 12/08/2018 8:47 PM CDT [facility] [facility] TRIGLYCERIDES 249(H) <150 mg/dL 12/08/2018 8:47 PM CDT [facility] HDL CHOLESTEROL 49 >40 mg/dL 9 8:47 PM CDT [facility] NON-HDL CHOLESTEROL 164(H) <145 mg/dl 12/08/2018 8:47 PM CDT [facility] CHOL/HDL RATIO 4.35 <4.50 12/08/2018 8:47 PM CDT [facility] LDL CHOLESTEROL 114 <=130 mg/dL 12/08/2018 8:47 PM CDT [facility] PROVIDER ORDERED STATUS RANDOM 12/08/2018 8:47 PM CDT [facility] Blood BLOOD SPECIMEN / Unknown Venipuncture / Unknown 12/08/2018 4:10 PM CDT 12/08/2018 4:37 PM CDT Keon Hong MD [facility] [address] [place] [address], from Last 3 Months or Most Recently Relevant to Health Maintenance Advance Directives * Full Code (Latest Code Status on File) Date Activated Date Inactivated Comments 2005 1:25 PM 05/17/2005 7:54 PM * Full Code Date Activated Date Inactivated Comments 2005 9:32 AM 2005 1:25 PM Care Teams Wind Turbine Technician Relationship Specialty Start Date End Date Anoop Emery MD [address] [place] [address] PCP - General Family Practice 04/09/21
--- OUTSIDE RECORDS SUMMARY | 2024-02-04 13:52 | XMS_ITS | Encounter Summary ---
Author Organization [facility] Address [address] [place] [address] Care Team Providers Care Missing Persons Investigator Name Role Phone Denise Harris MD Primary Care Provider Anoop Emery MD Unavailable [phone] Inez Peck See Luis Antonio GARZA Unavailable [phone] Inez Peck See Luis Antonio GARZA Unavailable [phone] Encounter Details Date Type Department Care Team (Late st Contact Info) Description 04/09/2018 [facility] [place] [place] Medical Advice [address] [address] Jeanine Ford DPJose Roberto, Podiatry/Foot and Ankle Surgery [address] [place] [address] [address] Foot pain, bilateral (Primary Dx) Social History Tobacco Use Types Packs/Day Years Used Date Smoking Tobacco: Former Smokeless Tobacco: Never Comments:quit 1987 Alcohol Use Standard Drinks/Week Comments Not Asked 0 (1 standard drink = 0.6 oz pur e alcohol) Comments No Sex and Gender Information Value Date Recorded Sex Assigned at Female 10/30/2020 4:00 PM CDT Legal Sex Female 3:37 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 It looks like a consult letter was already in the process of being sent. Geri Taveras RN INING DEPARTMENT SUPERVISOR documented in this encounter Plan of Treatment Not on file documented as of this encounter Visit Diagnoses Diagnosis Foot pain, bilateral- Primary documented in this encounter Care Teams Missing Persons Investigator Relationship Specialty Start Date End Date Denise Harris MD [address] [address] PCP - General Internal Medicine 01/17/15 Anoop Emery MD [address] [address] Referring Physician Family Medicine 09/15/20 Inez Peck MD [address] [place] [address] [id number] Urology 09/15/20 Inez Peck MD [address] [place] [address] Assigned Surgical Provider 11/12/20 05/10/22 documented as of this encounter
--- OUTSIDE RECORDS SUMMARY | 2024-02-04 13:52 | XMS_ITS | Encounter Summary ---
Author Organization [place] Address [address] [place] [address] Care Team Providers Care Business Relations Manager Name Role Phone Denise Harris MD Primary Care Provider Anoop Emery MD Unavailable [phone] Inez Peck MD Unavailable [phone] Inez Peck MD Unavailable [phone] Encounter Details Date Type Department Care Team (Late st Contact Info) Description 10/31/[address] [facility] [address] 4[address] [place] [address] Inez Peck MD [address] [facility] [address] [place] [address] Social History Tobacco Use Types Packs/Day Years Used Date Smoking Tobacco: Former Smokeless Tobacco: Never Comments:quit 1986 Alcohol Use Standard Drinks/Week Comments Not Asked 0 (1 standard drink = 0.6 oz pur e alcohol) PHQ-2 Answer Date Recorded PHQ-2 Score 1 11/02/2020 Comments No Sex and Gender Information Value Date Recorded Sex Assigned at Female 10/30/2020 4:00 PM CDT Legal Sex Female 3:37 AM PUBLIC SERVICES ASSISTANT Gender Identity Female 10/30/2020 4:00 PM CDT [...] on filedocumented in this encounter Care Teams Business Relations Manager Relationship Specialty Start Date End Date Denise Harris MD [facility] [address] [place] [address] PCP - General Internal Medicine 01/17/15 Anoop Emery MD [facility] [address] [place] [address] Referring Physician Family Medicine 09/15/20 Inez Peck MD [address] [place] [address] [address] [place], [place] [address] Urology 09/15/20 Inez Peck MD [address] [place] [address] [id number] Assigned Surgical Provider 11/12/20 05/10/22 documented as of this encounter
--- NOTE | 2024-02-04 14:00 | CRLHL7_ITS ---
For Patients: As a result of the Century Cures Act, medical imaging exams and procedure reports are released immediately into your electronic medical record. You may view this report before your referring provider. If you have questions, please contact your health care provider. DXA BONE MINERAL DENSITY STUDY Current height (in): 68.0. Weight (lb): 248.0. Menopause age: 43. Ethnicity: White. Reason for exam: Asymptomatic menopausal state. 1. Have you had a previous hip or vertebral fracture? No. 2. Have you had any fractures during your adult life which did not result from significant trauma (e.g., auto accident)? No. 3. Did either of your parents have a hip fracture? No. 4. Do you smoke? No. 5. Have you ever taken Glucocorticoids? No. 6. Do you have rheumatoid arthritis? No. 7. Do you have secondary osteoporosis? No. 8. Do you drink 3 or more alcoholic drinks per day? No. 9. Are you being treated for osteoporosis? No. 10. Have you ever taken any of the following medications: Actonel, Evista, Fosamax, Miacalcin, Reclast, Boniva, Forteo, HRT (i.e. estrogen/hormone therapy), Protelos, Prolia, Vitamin D, Calcium, other ??? please specify. ANSWER: Yes, calcium. 11. Do you have any of the following medical conditions: Anorexia or bulimia, asthma or emphysema, end stage renal disease, hyperparathyroidism, any seizure disorders, cancer, inflammatory bowel diseases, hysterectomy, other ??? please specify. ANSWER: No. 12. What was your maximum height (inches)? 70. 13. Do you perform weight bearing exercise regularly? No. 14. Do you regularly consume dairy products? No. 15. Do you drink caffeinated beverages? No. 16. At what age did your period start? 13. 17. Are you premenopausal? No. 18. How many full-term pregnancies have you had? 0. 19. Have you ever missed your period for more than 6 months in a row (not including or menopause)? No. TECHNIQUE: Bone mineral density study was performed using the Navent. FINDINGS: The results of the study expressed as bone mineral density (BMD) are as follows: Lumbar spine L1 to L3: BMD: 1.324 g/cm2. T-score: 2.8. Z-score: 4.9 Neck Left: BMD: 0.868 g/cm2. T-score: 0.2. Z-score: 2.0 Right: BMD: 0.715 g/cm2. T-score: -1.2. Z-score: 0.6 Total Left: BMD: 1.052 g/cm2. T-score: 0.9. Z-score: 2.4 Right: BMD: 1.034 g/cm2. T-score: 0.8. Z-score: 2.3 IMPRESSION: Osteopenia. FRAX 10-year Fracture Risk Major Osteoporotic Fracture: 8.5 percent Hip Fracture: 1.0 percent Reported Risk Factors: [place] () Neck BMD = 0.715, BMI = 37.7 Enrico Ledezma M.D. Diagnostic Radiologist [email or web address] Transcribed: 9:57 am DW/Dictated by: Enrico Ledezma MD @ 02/05/2024 9:17:00 AM (Electronically Signed)
== END 2024-02-04 13:48 | disposition home or self-care (01) ==
LOC: RAD 13:48
PROVIDERS: PCP Family Medicine; Visit Provider Family Medicine
DX: Z78.0 Asymptomatic menopausal state (principal); M85.89 Other specified disorders of bone density and structure, multiple sites
CPT/HCPCS: 77080

== ENCOUNTER 2024-02-07 01:59 | Outpatient (CLI) | payer MEDICARE, BC, SELFPAY ==
--- OUTSIDE RECORDS SUMMARY | 2024-02-08 01:35 | XMS_ITS | Clinical Summary ---
Author Organization [facility] Address [address], [place] [address] Care Team Providers Care Digital Marketing Lead Name Role Phone Thalia Barron PA-C Primary Care Provider Un available Source Comments You are receiving this document as you are listed as the primary care provider,follow-up provider, or the patient has been referred to you for consultation.This is in compliance with the Medicare and[facility] EHR Incentive Program,which states Providers who transition their patient to another setting of careor provider of care or refers their patient to another provider of care shouldprovide summary care record for each transition of care or referral. StartBull Allergies Active Allergy Reactions Criticality Noted Date [...] Instr:for eczema on hand 15 04/26/2009 Active [place]-3 Fatty Acids ([facility] FISH OIL) 1200 MG [...] 12 04/26/2009 Active nystatin-triamcinolo ne (AKA MYCOLOG-II) 161333-5.1 UNIT/GM-% cream Apply 1 Applicatorful topically 3 [...] Comments Blood Pressure 118/80 05/01/2009 7:20 AM ROLL CONTOUR GRINDER C: Dynamap Pulse 102 05/01/2009 7:20 AM ROLL CONTOUR GRINDER Temperature 36.7 C (98.1 F) 05/01/2009 7:20 AM ROLL CONTOUR GRINDER ORAL C: 98.1 F Respiratory Rate 16 05/01/2009 7:20 AM ROLL CONTOUR GRINDER Oxygen Saturation 96% 05/01/2009 7:2 1 AM ROLL CONTOUR GRINDER Inhaled Oxygen Concentration - - Weight - [...] age to complete this topic Care Teams Digital Marketing Lead Relationship Specialty Start Date End Date Thalia Barron PA-C PCP - General Physician Coil Tester 10/06/18
--- OUTSIDE RECORDS SUMMARY | 2024-02-08 01:35 | XMS_ITS | Clinical Summary ---
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
--- OUTSIDE RECORDS SUMMARY | 2024-02-08 01:35 | XMS_ITS | Clinical Summary ---
Author Organization [facility] [facility] Address [place], [place] [address] Care Team Providers Care Chair Caner Name Role Phone Anoop Emery MD Primary Care Provider [phone] Allergies Active Allergy Reactions Criticality Noted Date [...] nasal solution (FLONASE)Indicati ons:Seasonal allergies Inhale 1 [place] to both nostrils two times daily. 12/28/2021 [...] daily if needed. 12/28/2021 Active fish,bora,flax oils-om3,6,9no1 ([place] 3-6-9) 1,200 mg cap Take 1 capsule. [...] shandra Non-React shandra 01/07/2019 8:28 PM CDT [facility] Comment:Antibodies to HCV no t detected; does not exclude the possibility of exposure to HCV. Blood BLOOD SPECIMEN / Unknown Venipuncture / Unknown 01/07/2019 1:40 PM CDT 01/07/2019 1:47 PM CDT Thalia COMBS SEND OUTS [facility] [address] [place] [address], [place] * (ABNORMAL) LIPID PANEL W REFLEX MEASURED LDL (12/08/2018 4:10 PM CDT) CHOLESTEROL,TOTAL 213(H) 100 - 199 mg/dL 12/08/2018 8:47 PM CDT [facility] TRIGLYCERIDES 249(H) <150 mg/dL 12/08/2018 8:47 PM CDT [facility] HDL CHOLESTEROL 49 >40 mg/dL 9 8:47 PM CDT [facility] NON-HDL CHOLESTEROL 164(H) <145 mg/dl 12/08/2018 8:47 PM CDT [facility] CHOL/HDL RATIO 4.35 <4.50 12/08/2018 8:47 PM CDT [facility] LDL CHOLESTEROL 114 <=130 mg/dL 12/08/2018 8:47 PM CDT [facility] PROVIDER ORDERED STATUS RANDOM 12/08/2018 8:47 PM CDT [facility] Blood BLOOD SPECIMEN / Unknown Venipuncture / Unknown 12/08/2018 4:10 PM CDT 12/08/2018 4:37 PM CDT Keon Hong MD [facility] [address] [place] [address], from Last 3 Months or Most Recently Relevant to Health Maintenance Advance Directives * Full Code (Latest Code Status on File) Date Activated Date Inactivated Comments 2005 1:25 PM 05/17/2005 7:54 PM * Full Code Date Activated Date Inactivated Comments 2005 9:32 AM 2005 1:25 PM Care Teams Chair Caner Relationship Specialty Start Date End Date Anoop Emery MD [address] [place] [address] PCP - General Family Practice 04/09/21
--- OUTSIDE RECORDS SUMMARY | 2024-02-08 01:35 | XMS_ITS | Referral Summary ---
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
--- OUTSIDE RECORDS SUMMARY | 2024-02-08 01:36 | XMS_ITS | Encounter Summary ---
Author Organization [facility] Address [address] [place] [address] Care Team Providers Care Dance Therapist Name Role Phone Denise Harris MD Primary Care Provider Anoop Emery MD Unavailable [phone] Inez Peck See Luis Antonio GARZA Unavailable [phone] Inez Peck See Luis Antonio GARZA Unavailable [phone] Encounter Details Date Type Department Care Team (Late st Contact Info) Description 04/09/2018 [facility] Medical Advice [address] [address] Jeanine Ford DPJose Roberto, Podiatry/Foot and Ankle Surgery [address] [place] [address] [address] Foot pain, bilateral (Primary Dx) Social History Tobacco Use Types Packs/Day Years Used Date Smoking Tobacco: Former Smokeless Tobacco: Never Comments:quit 1987 Alcohol Use Standard Drinks/Week Comments Not Asked 0 (1 standard drink = 0.6 oz pur e alcohol) Comments No Sex and Gender Information Value Date Recorded Sex Assigned at Female 10/30/2020 4:00 PM CDT Legal Sex Female 3:37 AM AUTOMATION/CONTROLS MANAGER Gender Identity Female 10/30/2020 4:00 PM CDT Sexual Orientation Bisexual 10/30/2020 4: 00 PM CDT documented as of this encounter Miscellaneous Notes * Telephone Encounter - Ni Taveras RN - 04/09/2018 2:27 PM CST Please see mychart request for ibuprofen and medical records. It looks like a consult letter was already in the process of being sent. Geri Taveras RN MATION/CONTROLS MANAGER documented in this encounter Plan of Treatment Not on file documented as of this encounter Visit Diagnoses Diagnosis Foot pain, bilateral- Primary documented in this encounter Care Teams Dance Therapist Relationship Specialty Start Date End Date Denise Harris MD [address] [address] PCP - General Internal Medicine 01/17/15 Anoop Emery MD [address] [address] Referring Physician Family Medicine 09/15/20 Inez Peck MD [address] [place] [address] [phone] Urology 09/15/20 Inez Peck MD [address] [place] [address] Assigned Surgical Provider 11/12/20 05/10/22 documented as of this encounter
--- OUTSIDE RECORDS SUMMARY | 2024-02-08 01:36 | XMS_ITS | Continuity of Care Document ---
Author Organization [facility] Address [address] [place] [address] Phone Care Team Providers Care Experimental Box Tester Name Role Phone Doug Mars MD Unavailable Unavailable Allergies, Adverse Reactions, Alerts Substance Reaction Status Criticality mupirocin Active No Information Medications Medication Instructions Dosage Effective Dates (start - stop) Status Comments GLIPIZIDE (unknown strength) Not Available - Active XARELTO (unknown strength) Not Available - Active VENLAFAXINE HCL (unknown strength) Not Available - Active VALACYCLOVIR (unknown strength) Not Available - Active TRAZODONE HCL (unknown strength) Not Available - Active PREGABALIN (unknown strength) Not Available - Active PRAMIPEXOLE DIHYDROCHLORIDE (unknown strength) Not Available - Active OXYCODONE HCL (unknown strength) Not Available - Active ONDANSETRON ODT (unknown strength) Not Available - Active HYDROCHLOROTHIAZIDE (unknown strength) Not Available - Active METFORMIN HCL (unknown strength) Not Available - Active LORATADINE (unknown strength) Not Available - Active FLUCONAZOLE (unknown strength) Not Available - Active FEXOFENADINE HCL (unknown strength) Not Available - Active DOXYCYCLINE HYCLATE (unknown strength) Not Available - Active CEPHALEXIN (unknown strength) Not Available - Active CARBAMAZEPINE (unknown strength) Not Available - Active AMOXICILLIN (unknown strength) Not Available - Active Procedures Procedure Date Office/Outpatient Visit,Est, Mod 2021 OFFICE/OUTPATIENT VISIT EST Phone Office/Outpatient Visit,New, Mod 2020 Office/outpatient visit,est, low 2005 Advance Directives Directive Yes / No Effective Date File Name No Information Encounters Encounter Description Practice Location Reason(s) For Visit Diagnoses Date Provider Providers Copied on Encounter [facility], [address], [place], [place], [id number], [place] tel:[phone] [facility] No Information 2 Jerad Camacho. [facility], [address], [place] [address], [place], [place], [id number], [place]. tel:[phone] Office/Outpa tient Visit,Est, Mod [facility], [address], [place], [place], [id number], [place] tel:[phone] [facility] Spinal stenosis, cervical regionOther forms of scoliosis, site unspecifiedS pondylolysis , site unspecifiedS kevin stenosis, lumbar region with neurogenic claudication 2 Jerad Camacho. [facility], [address], [place] [address], [place], [place], [id number], [place]. tel:[phone] Referring Provider: Anoop Ruiz, [facility] [address] [place], [address]. tel:[phone] OFFICE/OUTPA TIENT VISIT EST Phone [facility], [address], [place], [place], [id number], [place] tel:[phone] [facility] No Information 2 Jerad Camacho. [facility], [address] [place] [address], [place] [address], [place], [place], [id number], [place]. tel:[phone] Referring Provider: Anoop Ruiz, [facility] [address] [place], [address]. tel:[phone] Office/Outpa tient Visit,New, Mod [facility], [address], [place], [place], [id number], [place] tel:[phone] [facility] Spinal stenosis, cervical regionSpinal stenosis, lumbar region with neurogenic claudication Other spondylosis, lumbar region No Information Referring Provider: Anoop Ruiz, [facility] [address] [place], [address]. tel:[phone] Office/outpa tient visit,est, low Z [facility], [address], [place], [address], [place] tel:[phone] [facility] No Information 6 No Information Referring Provider: Gordon Boyd, [place] [address] [place], [address]. tel:[phone] Family History Family Member Type Diagnosis Age At Onset No Information Payers Payer name Insurance type Covered republican ID Mele weller(s) [facility] [id number] Medicare [facility] [id number] Social History Type Description Quantity Date [...]
--- OUTSIDE RECORDS SUMMARY | 2024-02-08 01:36 | XMS_ITS | Continuity of Care Document ---
Author Organization [facility] enter Address [address] [place] [address] Phone Care Team Providers Care Meter/Relay Technician Name Role Phone [facility] Unavailable Unava ilable Procedures Procedure Date IMPLANT NEUROELECTRODES Implt neurostim elctr each IMPLANT NEUROELECTRODES Advance Directives Directive Yes / No Effective Date File Name No Information Encounters Encounter Description Practice Location Reason(s) For Visit Diagnoses Date Provider Providers Copied on Encounter [facility], [address] [place] [address], [id number], [place] tel:[phone] [facility] No Information [facility]. [address] [place] [address], [id number], . tel:[phone] Referring Provider: Davie Scherer, [address] [place], [address] . tel:[phone] Family History Family Member Type Diagnosis Age At Onset No Information Payers Payer name Insurance type Covered alliance party ID Authoriza tion(s) Blue Cross [employer] Medicare Complete BL [id number] Social History Type Description Quantity Date Captured [...]
--- OUTSIDE RECORDS SUMMARY | 2024-02-08 01:36 | XMS_ITS | Continuity of Care Document ---
Author Organization [facility] Address [address] [facility] [place] [address] Phone Care Team Providers Care Veneer Stapler Name Role Phone Logan Hart Unavailable Unavailable [...] - No Longer Active Procedures Procedure Date [facility] Lead Pull Satellite No Charge For [...] Diagnoses Date Provider Providers Copied on Encounter [facility], [address] [place] [address], [id number] , [place] tel:[phone] [facility] Type 2 diabetes mellitus with diabetic neuropathy, unspecified 3 Yoon Ford. [address] [facility] [address] [facility] [address], [place], [id number], [place]. tel:[phone] Referring Provider: Anoop Emery, [address], [address]. tel:[phone] [facility], [address] [place] [address], [id number] , [place] tel:[phone] [facility] Type 2 diabetes mellitus with diabetic neuropathy, unspecified 3 Niesha Broderick. [address] [place], [place], [id number], [place]. tel:[phone] Referring Provider: Anoop Emery [facility] [address] [place], [address]. tel:[phone] OFFICE VISIT, EST TELEMEDICINE [facility], [address] [place] [address], [id number] , [place] tel:[phone] [facility] Widespread pain (chief complaint) Type II diabetes mellitus with diabetic neuropathy 3 Kira Bergeron. [address] [facility] [address], [facility] [address], [place], [id number], [place]. tel:[phone] [facility], [address] [place] [address], [id number] , [place] [phone] [facility] [place] pain (chief complaint) Type II diabetes mellitus with diabetic neuropathy 3 Lalitha Sandoval. [address] [place], [place], [id number], [place]. [phone] Psych Dx Eval [facility], [address] [place] [address], [id number] , [place] tel:[phone] Telehealth Pain disorder with related psychological factorsMajor depressive disorder, recurrent, in partial remissionAlcoh ol dependence, in remission 3 Natalia Brice. [address] [place] [address], [id number], [place]. tel:[phone] OFFICE/OUTPAT IENT VISIT, EST [facility], [address] [place] [address], [id number] , [place] [phone] [facility] Widespread pain (chief complaint) Type II diabetes mellitus with diabetic neuropathyChro amie pain syndromeSpinal stenosis, lumbar region without neurogenic claudicationPo stlaminectomy syndrome, not elsewhere classifiedLong term (current) use of opiate analgesic 3 Kira Bergeron. [address] [place] [address], [address], [id number], [place]. tel:[phone] Referring Provider: Anoop Emery [facility] [address] [place], [address]. tel:[phone] [facility], [address] [place] [address], [id number] , [place] tel:[phone] [facility] No Information 3 Kira Bergeron. [address] [facility] 11, [facility] [address], [place], [id number], [place]. tel:[phone] Referring Provider: Anoop Emery [facility] [address] [place], [address]. tel:[phone] OFFICE/OUTPAT IENT VISIT, [facility], [address] [place], [place], [id number] , [place] tel:[phone] [facility] [place] Widespread pain (chief complaint) Chronic pain syndromePostla minectomy syndrome, not elsewhere classifiedLong term (current) use of opiate analgesicEncou nter for therapeutic drug level monitoringSpin al stenosis, lumbar region without neurogenic claudicationTy pe II diabetes mellitus with diabetic neuropathy 3 Kira Elyssa. [address] [facility] [address], [address], [place], [place], [id number], [place]. tel:[phone] Referring Provider: Anoop Emery, [facility] [address] [place], [address]. tel:[phone] Family History Family Member Type Diagnosis Age At Onset No Information Payers Payer name Insurance type Covered libertarian ID Authorbruce weller(s) [facility] Torres Martinez Medicare Complete BL [id number] Social History Type Description Quantity Date Captured Comments Alcohol Use Details Unknown Caffeine Use Details Unknown Tobacco Use Status No Information Smoking Status No Information Sex Female Chief Complaint And Reason For Visit No Information Reason For Referral Reason For Referral No Information Plan Of Treatment Date Type Action Status Goal Order Annual PT. Due on due Goal CT-Colonography. Due on due Goal Creatinine. Due on due Goal RETAIL ASSISTANT STORE MANAGER Scanned. Due on 023 due Goal ALT (SGPT). Due on due Goal UDT. Due on due Goal AST (SGOT). Due on due Goal HUMAN RELATIONS MANAGER Paperwork. Due on due Goal OARS. Due [...] due Goal FIT-DNA. Due on due Goal RETAIL ASSISTANT STORE MANAGER Scanned. Due on due Goal PHQ-9. Due [...] Tobacco Use. Due on 023 due Goal Zoster vaccine (1st). Due on due Goal FIT-DNA. Due on due Goal HUMAN RELATIONS MANAGER Paperwork. Due on due Goal ALT (SGPT). Due on due Goal CT-Colonography. Due on due Goal Height. Due on d ue Goal Update Social History. Due o n due Goal Zoster vaccine (1st). Due on due Goal Tobacco Use. Due on due Goal PHQ-9. Due on du e Goal FIT-DNA. Due on due Goal Unhealthy drug use screening . Due on due Goal Weight. Due on d ue Goal AST (SGOT). Due on due Goal RETAIL ASSISTANT STORE MANAGER Scanned. Due on due Goal ALT (SGPT). Due on due Goal Order Annual PT. Due on due Goal OARS. Due on due Goal UDT. Due on due Goal Creatinine. Due on due Goal HUMAN RELATIONS MANAGER Paperwork. Due on due Goal Medication Reconciliation. D ue on due Goal Lipid panel. Due on due Goal Review Allergy List. Due on due Goal FIT. Due on due Goal Hepatitis C screening. Due o n due Goal Review Allergy List. Due on due Goal CT-Colonography. Due on due Goal Height. Due on d ue Goal Lipid panel. Due on due Goal Hepatitis C screening. Due o n due Goal Tobacco Use. Due on due Goal FIT-DNA. Due on due Goal Medication Reconciliation. D ue on due Goal PHQ-9. Due on du e Goal Zoster vaccine (1st). Due on due Goal Update Social History. Due o n due Goal Weight. Due on d ue Goal Unhealthy drug use screening . Due on due Goal ALT (SGPT). Due on due Goal OARS. Due on due Goal Order Annual PT. Due on due Goal HUMAN RELATIONS MANAGER Paperwork. Due on due Goal Creatinine. Due on due Goal AST (SGOT). Due on due Goal FIT. Due on due Goal RETAIL ASSISTANT STORE MANAGER Scanned. Due on due Goal UDT. Due on due Goal Creatinine. Due on due Goal AST (SGOT). Due on due Goal HUMAN RELATIONS MANAGER Paperwork. Due on due Goal Order Annual PT. Due on due Goal OARS. Due on due Goal ALT (SGPT). Due on due Goal UDT. Due on due Goal RETAIL ASSISTANT STORE MANAGER Scanned. Due on due Goal Update [...] Goal ALT (SGPT). Due on due Goal HUMAN RELATIONS MANAGER Paperwork. Due on due Goal Creatinine. Due on due Goal RETAIL ASSISTANT STORE MANAGER Scanned. Due on due Goal FIT. [...] is for doctors visits. she has a COTTON WEIGHER OPERATOR that comes in and helps her with [...] hx of cervical foraminotomy late 2021 at [facility]. Has an upcoming appt at [facility] regarding her low back pain. Her worst [...] hx of cervical foraminotomy late 2021 at [facility]. After surgery, she noticed improvement in mobility [...] No recent EMG. She has tried PT, daycare director, and ESIs, without lasting relief. The patient has previously tried cymbalta, lidocaine patches, and CBD.The patient is currently managed on Lyrica 150mg TID, venlaxafine 225mg AM, oxycodone (once daily), voltaren gel, ibuprofen 800mg TID, hydrochlorothiazide 25mg AM, metformin 500mg (1000mg AM and PM), trazodone 2000mg HS, xarelto 10mg, and pramipexole 0.3275mg 5 tabs/day.Yaz is interested in all treatment options through [facility]. No other concerns today.Of note, patient [...]
--- OUTSIDE RECORDS SUMMARY | 2024-02-08 01:36 | XMS_ITS | Continuity of Care Document ---
Author Organization [facility] Address [address] [place] [address] Care Team Providers Care Emergency Communications Officer Name Role Phone Angus Cao CRNA Unavailable Unavailable Procedures Procedure Date Percutaneous Image guided neuromodulatio n or intra Advance Directives Directive Yes / No Effective Date File Name No Information Encounters Encounter Description Practice Location Reason(s) For Visit Diagnoses Date Provider Providers Copied on Encounter [facility], [address] [place], [place], [id number], [facility] No Information Nash Greco. [address] [place], [place], [id number] , . tel:[phone] Referring Provider: Davie Scherer, [address] [place], [address] . tel:[phone] Family History Family Member Type Diagnosis Age At Onset No Information Payers Payer name Insurance type Covered republican ID Authoriza tibrie(s) [facility] Herman Medicare Complete BL [id number] Social History Type Description Quantity Date Captured [...]
--- OUTSIDE RECORDS SUMMARY | 2024-02-08 01:36 | XMS_ITS | Continuity of Care Document ---
Author Organization [facility] Address [address] [address] [place] [address] Phone Care Team Providers Care Property Claims Manager Name Role Phone Briana Prabhakar CRNA [...] Diagnoses Date Provider Providers Copied on Encounter [facility], [address] [address], [place], [place], [id number], [place] tel:[phone] [facility] No Information 2 Nahid Warren. [address] [facility], [facility] [address], [place], [place], [id number] , [place]. [phone] Referring Provider: Joanne [place] MD, [address] [address], [place], [address]. tel:[phone] [facility], [address] [address], [place], [place], [id number], [place] tel:[phone] [facility] GI Symptoms or Concerns (chief complaint) Colorectal polypsEncounter for screening for malignant neoplasm of colonPolyp of colon 2 Sirisha GARZA June. [address] [facility], [facility] [address], [facility] [place], [id number] , [place]. [phone] Referring Provider: Dionicio Galo MD, [address] [place], [address]. tel:[phone] [facility], [address] [address], [place], [place], [id number], [place] tel:[phone] [facility] No Information 2 Sirisha GARZA [address] [facility], [facility] [address], [facility] [place], [id number] , [place]. tel:[phone] [facility], [address] [address], [place], [id number], [place] tel:[phone] [facility] No Information 2 Nahid Ford. [address] [facility], [facility] [address], [place], [place], [id number] , [place]. tel:[phone] Family History Family Member Type Diagnosis Age [...] ional interface ; Source: Other Registry Novel [id number], all formulations administered Note: [facility] bi-direct ional [...] Registry Payers Payer name Insurance type Covered constitution party ID Authoriza tion(s) Blue Cross [place] Blue BL [id number] Social History Type Description Quantity Date Captured [...]
--- OUTSIDE RECORDS SUMMARY | 2024-02-08 01:36 | XMS_ITS | Encounter Summary ---
Author Organization [facility] Address [address] [place] [address] Care Team Providers Care Brush Washer Name Role Phone Denise Harris MD Primary Care Provider Anoop Emery MD Unavailable [phone] Inez Peck MD Unavailable [phone] Inez Peck MD Unavailable [phone] Encounter Details Date Type Department Care Team (Late st Contact Info) Description 10/31/2020 MyC Medical Advice [facility] [address] [place] [address] Inez Peck MD [address] [facility] [address] [place] [address] Social History Tobacco Use Types [...] PM CDT Legal Sex Female 3:37 AM PAINT SPECIALIST Gender Identity Female 10/30/2020 4:00 PM CDT [...] on filedocumented in this encounter Care Teams Brush Washer Relationship Specialty Start Date End Date Denise Harris MD [facility] [address] [place] [address] PCP - General Internal Medicine 01/17/15 Anoop Emery MD [facility] [address] [place] [address] Referring Physician Family Medicine 09/15/20 Inez Peck MD [address] [place] [address] [address] [place], [place] [address] Urology 09/15/20 Inez Peck MD [address] [place] [id number] Assigned Surgical Provider 11/12/20 05/10/22 documented as of this encounter
--- OUTSIDE RECORDS SUMMARY | 2024-02-08 01:36 | XMS_ITS | Continuity of Care Document ---
Author Organization [facility] Address [address] [address] [place] [address] Care Team Providers Care Produce Team Lead Name Role Phone [place], [place] Unavailable Unav ailable Procedures Procedure Date Colono Advance Directives Directive Yes / No Effective Date File Name No Information Encounters Encounter Description Practice Location Reason(s) For Visit Diagnoses Date Provider Providers Copied on Encounter [facility], [address] [address], [place], [place], [id number], [place] [facility] No Information [facility]. [address] [address], [place], [place], [id number], . tel:[phone] Referring Provider: Joanne [place] MD, [address] [facility] [address], [place], [address] . tel:[phone] Family History Family Member Type Diagnosis Age At Onset No Information Payers Payer name Insurance type Covered republican ID Authoriza tion(s) Blue Cross [place] Blue BL [id number] Social History Type Description Quantity Date Captured [...]
== END 2024-02-07 02:00 | disposition home or self-care (01) ==
LOC: AMB 02-08 01:33
PROVIDERS: PCP Family Medicine; Visit Provider Student in an Organized Health Care Education/Training Program
DX: S29.9XXA Unspecified injury of thorax, initial encounter (principal); R53.1 Weakness; W06.XXXA Fall from bed, initial encounter; Y92.003 Bedroom of unspecified non-institutional (private) residence as the place of occurrence of the external cause
CPT/HCPCS: A0998

== ENCOUNTER 2024-04-01 14:05 | Outpatient (CLI) | payer MEDICARE, BC, SELFPAY ==
--- NOTE | 2024-04-01 14:00 | CRLHL7_ITS ---
For Patients: As a result of the Century Cures Act, medical imaging exams and procedure reports are released immediately into your electronic medical record. You may view this report before your referring provider. If you have questions, please contact your health care provider. BILATERAL SCREENING MAMMOGRAM WITH COMPUTER-AIDED DETECTION AND TOMOSYNTHESIS TECHNIQUE: CC and MLO views were obtained. These mammographic images have been obtained using full-field digital technique. These mammographic images were interpreted with the benefit of computer-aided detection. Breast Tomosynthesis was used in this interpretation. COMPARISON FILM: 08/27/21, 03/24/18, 02/07/17 FINDINGS: There are scattered areas of fibroglandular density IMPRESSION: There is no radiographic evidence for malignancy. ASSESSMENT: BI-RADS Category 1: Negative RECOMMENDATION: Routine screening mammogram in 1 year. A lay language report of this examination will be provided to the patient. Enrico Ledezma M.D. Diagnostic Radiologist [email or web address] SILVANO/nery / bM/Dictated by: Enrico Ledezma MD @ 04/02/2024 10:42:00 AM (Electronically Signed)
== END 2024-04-01 14:06 | disposition home or self-care (01) ==
LOC: MAMMO 14:05
PROVIDERS: PCP Family Medicine; Visit Provider Family Medicine
DX: Z12.31 Encounter for screening mammogram for malignant neoplasm of breast (principal)
CPT/HCPCS: 77063; 77067

== ENCOUNTER 2024-06-03 14:25 | Observation (INO) | payer MEDICARE, BC, SELFPAY ==
[2024-06-03] VITALS (16 sets, daily range): BP systolic 153–167; BP diastolic 79–96; PULSE 53–75; RESP 16–18; TEMP 36.5–36.6; O2SAT 91–96; BMI 37.7; BMI 35.9
--- OUTSIDE RECORDS SUMMARY | 2024-06-03 14:28 | XMS_ITS | Clinical Summary ---
Author Organization [facility] Address [address], [place] [address] Care Team Providers Care Colorist Formulator Name Role Phone Thalia Barron PA-C Primary Care Provider Un available Source Comments You are receiving this document as you are listed as the primary care provider,follow-up provider, or the patient has been referred to you for consultation.This is in compliance with the Medicare and[facility] [place] EHR Incentive Program,which states Providers who transition their patient to another setting of careor provider of care or refers their patient to another provider of care shouldprovide summary care record for each transition of care or referral. [employer] Allergies Active Allergy Reactions Criticality Noted Date Comments Other 04/29/2009 PN: LW Other1: -NKA LW Other2: -NKA Review Contrast Media 04/29/2009 PN: SUSY CM1: >>> NO CONTRAST ADVERSE REACTION <<< Reaction : Review Food Intolerance 04/29/2009 PN: LW FI1: NKA LW FI2: NKA Medications ATENOLOL 50 MG OR TABS Take one tablet by mouth every day. 07/06/19 08 Active REMERON 15 MG OR TABS Take one tablet by mouth daily 07/06/19 08 Active ACYCLOVIR 200 MG OR CAPS as needed 07/06/19 08 Active TRAZODONE HCL 50 MG OR TABS Take one tablet by mouth at bedtime. 07/06/19 08 Active VITEX EXTRACT 175 MG OR CAPS Take one capsule by mouth twice daily 07/06/19 08 Active COENZYME Q10 100 MG OR TABS Take one tablet by mouth daily 07/06/19 08 Active L-LYSINE HCL 500 MG OR TABS Take 2 tablets by mouth every morning 07/06/19 08 Active FISH OIL 1200 MG OR CAPS Take by mouth twice daily 07/06/19 08 Active DOCUSATE SODIUM 100 MG OR CAPS Take 1 tablet by mouth 4 times daily 07/06/19 08 Active CITRACAL + D 315-200 MG-UNIT OR TABS Take 2 tablets by mouth daily 07/06/19 08 Active GLUCOSAMINE CHONDROITIN COMPLX OR TABS Take 2 tablets by mouth daily 07/06/19 08 Active MULTIPLE VITAMIN TABS Take one tablet by mouth twice daily. 07/06/19 08 Active FOLIC ACID 400 MCG OR TABS Take one tablet by mouth 07/06/19 08 Active GNP SENNA 8.6 MG OR CAPS Take 2-4 tablets by mouth daily as needed at bedtime 07/06/19 08 Active ECHINACEA 400 MG OR CAPS Take one tablet by mouth twice daily 07/06/19 08 Active TYLENOL ARTHRITIS PAIN 650 MG OR TBCR Take 2 tablets by mouth as needed 07/06/19 08 Active IBUPROFEN 200MG ORAL TABS Take 1-2 tablets by mouth every 4-6 hours as needed for pain. 07/06/19 08 Active INDOMETHACIN 50 MG OR CAPS Take one capsule by mouth three times a day 09/29/19 08 Active CYMBALTA 30MG ORAL CAPS Take 4 capsules by mouth daily 09/29/19 08 Active hydrochlorothiaz rob (AKA HYDRODIURIL) 25 MG tablet Take 1 tablet by mouth daily (every 24 hours). LW Addl Instr:Indicated for: High Blood Pressure 90 3 03/27/19 10 Active LYSINE OR Take 1 tablet by mouth 2 times daily. LW Addl Instr:pt takes in morning and at noon 04/26/19 10 Active Psyllium (METAMUCIL) 48.57 % powder Take 1 tsp by mouth daily (every 24 hours). LW Addl Instr:Dissolve in full glass of water or juice. 04/26/19 10 Active loratadine (AKA CLARITIN) 10 MG tablet Take 1 tablet by mouth daily as needed. LW Addl Instr:pt only takes in summer Indicated for: Allergies 90 3 04/26/19 10 Active gabapentin (AKA NEURONTIN) 300 MG capsule Take 1 capsule by mouth 4 times daily. LW Comment:info per pt LW Addl Instr:2 in am, 1 at noon, 1 in evening, and 1 at bedtime for total of 5 a day 3 04/26/19 10 Active Multiple Vitamins-Mineral s (MULTIVITAMIN OR) Take 1 tablet by mouth daily (every 24 hours). 100 13 04/26/19 10 Active LevOCARNitine (L-CARNITINE) 250 MG Take 1 tablet by mouth 2 times daily. 04/26/19 10 Active betamethasone dipropionate (AKA DIPROSONE) 0.05 % cream Apply 1 Application topically NEEDED PRN. LW Addl Instr:for eczema on hand 15 04/26/19 10 Active [place]-3 Fatty Acids (CVS FISH OIL) 1200 MG CAPS Take 1 capsule by mouth 2 times daily. 04/26/19 10 Active calcium citrate-vitamin D (CITRACAL MAXIMUM) 315-250 MG-UNIT tablet Take 1 capsule by mouth 2 times daily. LW Addl Instr:pt takes 1 in the evening and 1 at bedtime 04/26/19 10 Active amitriptyline (AKA ELAVIL) 10 MG tablet Take 1.5 tablets by mouth nightly. LW Addl Instr:pt takes 50mg in the evening and 15mg at bedtime 90 3 04/26/19 10 Active amitriptyline (AKA ELAVIL) 50 MG tablet Take 1 tablet by mouth every evening. LW Addl Instr:pt takes 50mg in the evening and 15mg before bedtime 90 3 04/26/19 10 Active valACYclovir (AKA VALTREX) 1 G tablet Take 1 tablet by mouth 2 times daily as needed. LW Addl Instr:if pt has cold sore, pt takes 1 in am and 1 in pm for total treatment 04/26/19 10 Active senna (SENNA) 8.6 MG tablet Take 2 tablets by mouth at bedtime as needed. LW Addl Instr:INDICATED FOR CONSTIPATION. 04/26/19 10 Active Coenzyme Q10 (CO Q 10) 100 MG Take 1 capsule by mouth daily (every 24 hours). 04/26/19 10 Active CVS ECHINACEA 400 MG CAPS Take 1 capsule by mouth daily (every 24 hours). 04/26/19 10 Active DESOWEN LOTION/NIZORAL CREAM 1 TO 1 Apply topically 2 times daily. LW Addl Instr:Desowen cream and Nizoral cream mixed 50/50. Apply as directed to affected area twice daily as needed. 04/27/19 10 Active Acetaminophen 650 MG Take 1-2 tablets by mouth every 8 hours as needed. LW Addl Instr:Maximum of 6 tablets/24 hours. 50 12 04/26/19 10 Active nystatin-triamci nolone (AKA MYCOLOG-II) 405714-1.1 UNIT/GM-% cream Apply 1 Applicatorful topically 3 times daily. LW Addl Instr:pt applies to left corner of eye and left corner of mouth 15 3 04/26/19 10 Active Carboxymethylcel lulose Sodium 1 % eye gel Apply 1 drop to eye 2 times daily as needed. 15 04/26/19 10 Active UNKNOWN MEDICATION Indications: PN: 01/25/20 10 Active DULoxetine (AKA CYMBALTA) 60 MG capsule Take 1 capsule by mouth 2 times daily. LW Addl Instr:Indication: Fibromyalgia. pt takes 1 in the am and 1 at noon 3 04/26/19 10 Active Active Problems Problem Noted Date Diagnosed Date Mechanical low back pain 10/15/2018 Cervical spine pain 10/15/2018 Sleep apnea 08/21/2002 Overview (11/06/2016): Obstructive Sleep Apnea Hypopnea Immunizations Immunization Administration Dates Next Due Flu Vac Preserv Free (3+yrs) 01/14/2009 H1n1 Miv Sanofi 3+ Yr (Injected) 02/13/2009 Social History Tobacco Use Types Packs/Day Years Used Date Smoking Tobacco: Never Alcohol Use Standard Drinks/Week Comments No 0 (1 standard drink = 0.6 oz pur e alcohol) Recovering alcoholic Comments Unknown Sex and Gender Information Value Date Recorded Sex Assigned at Not on file Legal Sex Female 7:34 AM CDT Gender Identity Not on file Sexual Orientation Not on file Last Filed Vital Signs Vital Sign Reading Time Taken Comments Blood Pressure 118/80 05/01/2009 7:20 AM CRIME LAB ANALYST C: Dynamap Pulse 102 05/01/2009 7:20 AM CRIME LAB ANALYST Temperature 36.7 C (98.1 F) 05/01/2009 7:20 AM CRIME LAB ANALYST ORAL C: 98.1 F Respiratory Rate 16 05/01/2009 7:20 AM CRIME LAB ANALYST Oxygen Saturation 96% 05/01/2009 7:2 1 AM CRIME LAB ANALYST Inhaled Oxygen Concentration - - Weight - - Height - - Body Mass Index - - Plan of Treatment Health Maintenance Due Date Last Done Comments Colon Cancer Screening Plan Due 1955 Hep C Screening (Preventive Services) 1955 Medicare Annual Wellness Visit 1955 Mammogram 1955 Cholesterol 1998 Zoster/Shingles (2 of 3) 07/08/2014 05/13/2014 Dexa 2018 Pneumococcal 50+ Yrs (2 of 2 - PCV) 09/21/2020 09/22/2019 COVID-19 Vaccine (2 - season) [...] on patient's age to complete this topic Meningococcal B Aged Out No longer el igible based on patient's age to complete this topic Insurance [facility] [place] [place] [address] [place] [employer] MED[employer] MANAGED CARE BS Care Teams Colorist Formulator Relationship Specialty Start Date End Date Thalia Barron PA-C PCP - General Physician Estimator Project Manager 10/06/18
--- OUTSIDE RECORDS SUMMARY | 2024-06-03 14:28 | XMS_ITS | Clinical Summary ---
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
--- OUTSIDE RECORDS SUMMARY | 2024-06-03 14:28 | XMS_ITS | Encounter Summary ---
Author Organization [facility] Address [address] [place] [address] Care Team Providers Care Christmas Tree Grower Name Role Phone Denise Harris MD Primary Care Provider Anoop Emery MD Unavailable [phone] Inez Peck See Luis Antonio GARZA Unavailable [phone] Inez Peck See Luis Antonio GARZA Unavailable [phone] Encounter Details Date Type Department Care Team (Late st Contact Info) Description 04/09/2018 [facility] [place] [address] [address] Jeanine Ford DPJose Roberto, Podiatry/Foot and Ankle Surgery [id number] [address] Foot pain, bilateral (Primary Dx) Social History Tobacco Use Types Packs/Day Years Used Date Smoking Tobacco: Former Smokeless Tobacco: Never Comments:quit 1987 Alcohol Use Standard Drinks/Week Comments Not Asked 0 (1 standard drink = 0.6 oz pur e alcohol) Comments No Sex and Gender Information Value Date Recorded Sex Assigned at Female 10/30/2020 4:00 PM CDT 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 It looks like a consult letter was already in the process of being sent. Geri Taveras RN [place] MANAGEMENT TRAINEE documented in this encounter Plan of Treatment Not on file documented as of this encounter Visit Diagnoses Diagnosis Foot pain, bilateral- Primary documented in this encounter Care Teams Christmas Tree Grower Relationship Specialty Start Date End Date Denise Harris MD [address] [address] PCP - General Internal Medicine 01/17/15 Anoop Emery MD [address] [address] Referring Physician Family Medicine 09/15/20 Inez Peck MD [address] [place] [id number] Urology 09/15/20 Inez Peck MD [address] [place] [id number] Assigned Surgical Provider 11/12/20 05/10/22 documented as of this encounter
--- OUTSIDE RECORDS SUMMARY | 2024-06-03 14:28 | XMS_ITS | Clinical Summary ---
Author Organization [email or web address] Address [address] [place] [address] Care Team Providers Care Last Code Striper Name Role Phone Anoop Emery MD Primary Care Provider [phone] Allergies Active Allergy Reactions Criticality Noted Date Comments Mupirocin *Unknown Unknown 09/10/2018 Medications MULTIVITAMIN TAB take 1 tablet by oral route once daily with food 0 7 Active blood glucose control, normal (CONTOUR NEXT LEV 2 CONTROL JONNY) soln U UTD 7 Active CONTOUR NEXT TEST STRIPS strip 2 times daily. 2 8 Active venlafaxine (EFFEXOR) 75 mg tabletIndicati ons:Major depressive disorder, recurrent, moderate (HC) Take 1 tablet by mouth every morning. 90 tablet 3 9 Active venlafaxine (EFFEXOR XR) 150 mg Extended-Relea se capsuleIndicat ions:Major depressive disorder, recurrent, moderate (HC) Take 1 capsule by mouth once daily with a meal. 90 capsule 3 9 Active hydroCHLOROthi azide (HCTZ) 25 mg tabletIndicati ons:Chronic diastolic CHF (congestive heart failure) (HC) Take 1 tablet by mouth once daily. 90 tablet 0 Active glipiZIDE extended-relea se (GLUCOTROL XL) 5 mg Extended-Relea se tablet Take 5 mg by mouth. 2 Active Xarelto 10 mg tablet Take 10 mg by mouth. 2 Active pregabalin (LYRICA) 150 mg capsuleIndicat ions:Fibromyal ester Take 1 Capsule (150 mg) by mouth two times daily. 20 Capsule 2 Active acetaminophen (TYLENOL EXTRA STRGTH) 500 mg tabletIndicati ons:Pain Take 2 Tablets (1,000 mg) by mouth four times daily. Max acetaminophen dose: 4000mg in 24 hrs. 2 Active alpha lipoic acid 600 mg capsule Take 1 Capsule (600 mg) by mouth once daily. 2 Active coenzyme q10 (Co Q-10) 100 mg cap Take 1 Capsule (100 mg) by mouth once daily. 2 Active Cranberry 400 mg capsule Take 1 Capsule (400 mg) by mouth once daily. 2 Active diazePAM (VALIUM) 5 mg tabletIndicati ons:RLS (restless legs syndrome) Take 1 Tablet (5 mg) by mouth 3 times daily if needed. 2 Active fluticasone (50 mcg per actuation) nasal solution (FLONASE)Indic ations:Seasona l allergies Inhale 1 [place] to both nostrils two times daily. 2 Active Ginkgo Biloba 120 mg tablet Take 1 Tablet (120 mg) by mouth once daily. 2 Active insulin aspart, U-100, (NOVOLOG FLEXPEN) 100 unit/mL (3 mL) penIndications :Type 2 diabetes mellitus without complication, with long-term current use of insulin (HC) Inject 8 units subcutaneous three times daily before meals. 2 Active insulin glargine, U-100, (Lantus Solostar U-100 Insulin) 100 unit/mL (3 mL) penIndications :Type 2 diabetes mellitus without complication, with long-term current use of insulin (HC) Inject 22 units subcutaneous once daily. Product desired: LANTUS SOLOSTAR 2 Active metFORMIN (GLUCOPHAGE) 500 mg tabletIndicati ons:Type 2 diabetes mellitus without complication, with long-term current use of insulin (HC) Take 2 Tablets (1,000 mg) by mouth two times daily with meals. 2 Active polyethylene glycoL (MIRALAX) 17 gram/dose powder Mix 1 scoop (17 g) in liquid then take by mouth once daily. 2 Active nystatin (MYCOSTATIN) ointmentIndica tions:Dermatit is Apply topically to affected area(s) 2 times daily if needed. 2 Active fish,bora,flax oils-om3,6,9no 1 ([place] 3-6-9) 1,200 mg cap Take 1 capsule. by mouth once daily. 2 Active pramipexole (MIRAPEX) 0.125 mg tabletIndicati ons:RLS (restless legs syndrome),Fibr omyalgia Take 2 Tablets (0.25 mg) by mouth at bedtime. 2 Active pramipexole (MIRAPEX) 0.125 mg tablet Take 3 Tablets (0.375 mg) by mouth once daily. Take at 1pm 2 Active iron,carbonyl- vitamin C (VITRON C) 65 mg iron- 125 mg Delayed-Releas e tablet Take 1 Tablet by mouth two times daily with meals. 2 Active diclofenac topical (Voltaren) 1 % gelIndications :Other chronic pain Apply topically to affected area(s) 4 times daily if needed. 2 Active oxyCODONE (ROXICODONE) 5 mg immediate release tabletIndicati ons:Postoperat shandra pain after spinal surgery Take 1 Tablet (5 mg) by mouth every 4 hours if needed for Pain. 30 Tablet 2 Active traZODone (DESYREL) 100 mg tablet Take 1 Tablet (100 mg) by mouth at bedtime. 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 Gender Identity Not on file Sexual Orientation Not on file Occupation Industry Job Start Date Job End Date UNEMPLOYED Not on file Not on file Not on file Obstetrics History Para Term [...] Done Comments Mammogram for age 45-75 1998 RSV vaccine for adults or (1 - Risk 60-74 years 1-dose series) 2013 Zoster (shingles) series for age 50+ (2 [...] ( season) 2023 12/11/2021, 02/07/2021, 05/19/2020 Influenza Vaccine (#1) 2023 1, 01/07/2019, 12/30/2017, Additional history exists Lipids for age 45-75 12/09/2023 12/08/2018 Tetanus booster 06/21/2024 06/21/2014, 07/23/2006 Tdap Completed 06/21/2014 Hepatitis C screening for ag e 18-79 Completed 01/07/2019 Pneumococcal series for age 50+ Completed 2, 09/22/2019 Procedures Procedure Name Priority [...] shandra Non-React shandra 01/07/2019 8:28 PM CDT [facility] Comment:Antibodies to HCV no t detected; does not exclude the possibility of exposure to HCV. Blood BLOOD SPECIMEN / Unknown Venipuncture / Unknown 01/07/2019 1:40 PM CDT 01/07/2019 1:47 PM CDT us Thalia COMBS SEND OUTS Final Result [facility] [address] [place] [address], [place] * (ABNORMAL) LIPID PANEL W REFLEX MEASURED LDL (12/08/2018 4:10 PM CDT) CHOLESTEROL,TOTAL 213(H) 100 - 199 mg/dL 12/08/2018 8:47 PM CDT [facility] TRIGLYCERIDES 249(H) <150 mg/dL 12/08/2018 8:47 PM CDT [facility] HDL CHOLESTEROL 49 >40 mg/dL 9 8:47 PM CDT [facility] NON-HDL CHOLESTEROL 164(H) <145 mg/dl 12/08/2018 8:47 PM CDT [facility] CHOL/HDL RATIO 4.35 <4.50 12/08/2018 8:47 PM CDT [facility] LDL CHOLESTEROL 114 <=130 mg/dL 12/08/2018 8:47 PM CDT [facility] PROVIDER ORDERED STATUS RANDOM 12/08/2018 8:47 PM CDT [facility] Blood BLOOD SPECIMEN / Unknown Venipuncture / Unknown 12/08/2018 4:10 PM CDT 12/08/2018 4:37 PM CDT us Keon Hong MD CHEMISTRY Final Result [facility] [address] [place] [address], from Last 3 Months or Most Recently Relevant to Health Maintenance Insurance [employer] [place] [place] BLUE MR PB ONLY MEDICARE PART B HB ONLY [place] [place] HB ONLY MEDICARE PART A HB ONLY MEDICARE PART B HB ONLY [facility] [place] Advance Directives * Full Code (Latest Code Status on File) Date Activated Date Inactivated Comments 2005 1:25 PM 05/17/2005 7:54 PM * Full Code Date Activated Date Inactivated Comments 2005 9:32 AM 2005 1:25 PM Care Teams Last Code Striper Relationship Specialty Start Date End Date Anoop Emery MD [address] [place] [address] PCP - General Family Practice 04/09/21
--- OUTSIDE RECORDS SUMMARY | 2024-06-03 14:28 | XMS_ITS | Encounter Summary ---
Author Organization [facility] Address [address] [place] [address] Care Team Providers Care Chemical Instrumentation Officer Name Role Phone Denise Harris MD Primary Care Provider [phone] Anoop Emery MD Unavailable [phone] Inez Peck MD Unavailable [phone] Inez Peck MD Unavailable [phone] Encounter Details Date Type Department Care Team (Late st Contact Info) Description 10/31/2020 MyC Medical Advice [facility] [address] [place] [address] Inez Peck MD [address] [facility] [address] [place] [address] Social History Tobacco Use Types [...] PM CDT 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 [address] [place] [address] PCP - General Internal Medicine 01/17/15 Anoop Emery MD [facility] [address] [place] [address] Referring Physician Family Medicine 09/15/20 Inez Peck MD [address] [place] [address] [address] [place], [place] [address] Urology 09/15/20 Inez Peck MD [address] [place] [id number] Assigned Surgical Provider 11/12/20 05/10/22 documented as of this encounter
--- NOTE | 2024-06-03 14:56 | ED_ITS ---
HPI - General Adult General Date Seen: 06/03/24 Chief complaint: Altered Mental Status Stated complaint: confusion, glucose pending Time Seen by Provider: 06/03/24 14:53 History of Present Illness HPI narrative: 69 yo F with a past medical history of type 2 diabetes, fibromyalgia, chronic pain syndrome, elevated BMI, sleep apnea, restless leg syndrome, history of PE, She presents to the ER today with concerned that she is feeling ?out of it?. History is obtained mostly from her foster daughter. The patient is not oriented to date and not really able to answer questions or provide assessing to history. Daughter notes that she does have chronic pain and is on OxyContin for that. She also somewhat disabled because of her chronic pain so is able to live at home but requires a lot of family support and has visiting home health nurses as well. Beginning on Friday she started to have ?hot flashes?, which I think mean that she had intermittent fevers and chills. She is not really having distinct episodes of hot flashes like menopause. She seemed to be otherwise normal in in her normal mental state yesterday when her daughter last saw her. Because of the fever and chills they had already made an appointment with her PCP and that appointment was scheduled to be today. No other symptoms. No cough. No sore throat. No headache. No chest pain. No abdominal pain. No vomiting. No diarrhea. Patient thinks urination has been normal. No rashes. Daughter does not have any signs that the patient would have fallen or hit her head at home. The patient does control her own medications but daughter sets up her pill boxes. The patient's daughter does not monitor her med intake precisely. As far as we know she has not had any unintentional or intentional medication overdose. Daughter suspects that, if anything, she would have gotten some meds, not taking too many. As far as we know, she has been taking her meds as prescribed. No new medication changes that would lead to confusion. She was sent from the clinic today. She had been seen by Dr. Madrid Workup in clinic available so far: WBC 11.02, hemoglobin 14.2, platelet count 300. Differential on the white count shows 65% neutrophils, 25% lymphocytes, 5% monocytes. Hemoglobin A1c 6.2. Point of care glucose 186. Related Data Home Medications ?Medication ?Instructions ?Recorded ?Confirmed Fish Oil 1 tab PO QDAY 10/17/21 06/03/24 ajmxjjo-[id number]-ysqz tablet 1 tab PO .qd 10/17/21 06/03/24 coenzyme Q10 100 mg capsule 100 mg PO DAILY 10/17/21 06/03/24 ferrous fumarate-vitamin C 132 1 tab PO QDAY 10/17/21 06/03/24 mg-250 mg tablet ginkgo biloba 40 mg tablet 40 mg PO QDAY 10/17/21 06/03/24 prednisolone acetate 1 % eye drp ophthalmic (eye) 09/08/23 06/03/24 drops,suspension doxepin 10 mg capsule 10 mg PO QPM 11/25/23 06/03/24 trazodone 100 mg tablet 300 mg PO HS 05/24/24 06/03/24 valacyclovir 500 mg tablet 500 mg PO BID PRN 05/24/24 06/03/24 Previous Rx's ?Medication ?Instructions ?Recorded alcohol swabs (Alcohol Pads) 1 pad topical TID #200 ea 01/09/22 lancets #200 ea 01/19/22 Blood Glucose Meter #1 ea 07/30/22 venlafaxine 150 mg 150 mg PO QDAY #90 caps 08/14/22 capsule,extended release 24 hr venlafaxine 75 mg capsule,extended 75 mg PO DAILY #90 caps 08/14/22 release 24 hr blood-glucose meter (Contour Next #1 ea 11/04/23 Gen Meter kit) bisacodyl 5 mg tablet 5 mg PO QHS 10 days #2 tabs 12/09/23 magnesium citrate 300 ml PO ONCE constipation #296 mL 12/09/23 blood sugar diagnostic (Contour #300 ea 12/23/23 Next Test Strips) hydrochlorothiazide 25 mg tablet 25 mg PO QDAY #90 tabs 12/23/23 insulin glargine 100 unit/mL (3 45 unit (0.45 mL) subcut QDAY #30 12/23/23 mL) subcutaneous pen (Lantus mL Solostar U-100 Insulin) loratadine 10 mg capsule 10 mg PO DAILY PRN allergic 12/23/23 symptoms #90 caps metformin 500 mg tablet 1,000 mg (2 x 500 mg) PO BIDWMEAL 12/23/23 #360 tabs pen needle,diabetic dual safty 30 #100 ea 12/23/23 gauge x 3/16 (BD AutoShield Duo Pen Needle) pramipexole 0.125 mg tablet 0.375 - 0.625 mg (3 - 5 x 0.125 12/23/23 mg) PO DAILY #450 tabs pregabalin 100 mg capsule 100 mg PO QDAY #90 caps 03/23/24 pregabalin 150 mg capsule 150 mg PO BID #180 caps 03/23/24 oxycodone-acetaminophen 10 mg-325 1 tab PO BID PRN pain #45 tabs 05/18/24 mg tablet Allergies Allergy/AdvReac Type Severity Reaction Status Date / Time mupirocin Allergy Unknown Verified 06/03/24 14:41 PFSH [facility] Medical History Sepsis ?A41.9 - Sepsis, unspecified organism (ICD-10) Surgical wound infection ?T81.49XA - Infection following a procedure, other surgical site, initial encounter (ICD-10) Yeast vaginitis ?B37.31 - Acute candidiasis of vulva and vagina (ICD-10) Itchy eyes ?R68.89 - Other general symptoms and signs (ICD-10) Lesion of nose ?J34.89 - Other specified disorders of nose and nasal sinuses (ICD-10) Urinary tract infection ?N39.0 - Urinary tract infection, site not specified (ICD-10) Hx of cold sores ?Z86.19 - Personal history of other infectious and parasitic diseases (ICD- 10) Fracture of distal fibula ?S82.839A - Other fracture of upper and lower end of unspecified fibula, initial encounter for closed fracture (ICD-10) Pelvic floor dysfunction in female ?M62.89 - Other specified disorders of muscle (ICD-10) Pain of soft tissue of extremity ?M79.609 - Pain in unspecified limb (ICD-10) Spinal stenosis of lumbar region ?M48.061 - Spinal stenosis, lumbar region without neurogenic claudication (ICD-10) Spinal stenosis of cervical region ?M48.02 - Spinal stenosis, cervical region (ICD-10) Restless legs syndrome ?G25.81 - Restless legs syndrome (ICD-10) Hypertension (04/13/09) ?I10 - Essential (primary) hypertension (ICD-10) Pulmonary embolism (05/04/09) ?I26.99 - Other pulmonary embolism without acute cor pulmonale (ICD-10) 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 ?G89.29 - Other chronic pain (ICD-10) Thyroid nodule ?E04.1 - Nontoxic single thyroid nodule (ICD-10) Obstructive sleep apnea treated with continuous positive airway pressure (CPAP) (12/26/08) ?G47.33 - Obstructive sleep apnea (adult) (pediatric) (ICD-10) ?Z99.89 - Dependence on other enabling machines and devices (ICD-10) Low back pain potentially associated with radiculopathy (05/12/12) ?M54.50 - Low back pain, unspecified (ICD-10) Type 2 diabetes mellitus ?E11.9 - Type 2 diabetes mellitus without complications (ICD-10) Tubular adenoma of colon ?D12.6 - Benign neoplasm of colon, unspecified (ICD-10) Trochanteric bursitis of left hip ?M70.62 - Trochanteric bursitis, left hip (ICD-10) Trigeminal neuralgia ?G50.0 - Trigeminal neuralgia (ICD-10) Rosacea (12/26/08) ?L71.9 - Rosacea, unspecified (ICD-10) Pulmonary embolism (04/2009) ?I26.99 - Other pulmonary embolism without acute cor pulmonale (ICD-10) Plantar fasciitis, bilateral ?M72.2 - Plantar fascial fibromatosis (ICD-10) Pain of left hip ?M25.552 - Pain in left hip (ICD-10) Obesity (12/26/08) ?E66.9 - Obesity, unspecified (ICD-10) Neuropathy of lower extremity ?G57.90 - Unspecified mononeuropathy of unspecified lower limb (ICD-10) Irritable bowel syndrome (12/26/08) ?K58.9 - Irritable bowel syndrome without diarrhea (ICD-10) Gastroesophageal reflux (12/26/08) ?K21.9 - Gastro-esophageal reflux disease without esophagitis (ICD-10) Fibromyalgia (12/26/08) ?M79.7 - Fibromyalgia (ICD-10) Depression (12/26/08) ?F32.A - Depression, unspecified (ICD-10) Constipation ?K59.00 - Constipation, unspecified (ICD-10) Chronic pain syndrome ?G89.4 - Chronic pain syndrome (ICD-10) Chronic insomnia ?F51.04 - Psychophysiologic insomnia (ICD-10) Acute lumbar radiculopathy ?M54.16 - Radiculopathy, lumbar region (ICD-10) Achilles tendinitis of both lower extremities ?M76.61 - Achilles tendinitis, right leg (ICD-10) ?M76.62 - Achilles tendinitis, left leg (ICD-10) Surgical History Hx of cervical spine surgery ?Z98.890 - Other specified postprocedural states (ICD-10) History of arthroscopy of right knee (12/2004) ?Z98.890 - Other specified postprocedural states (ICD-10) H/O arthroscopy of left knee (1997) ?Z98.890 - Other specified postprocedural states (ICD-10) 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) ?Z96.652 - Presence of left artificial knee joint (ICD-10) History of nasal septoplasty ?Z98.890 - Other specified postprocedural states (ICD-10) H/O dilation and curettage ?Z98.890 - Other specified postprocedural states (ICD-10) History of total right knee replacement (12/18/11) ?Z96.651 - Presence of right artificial knee joint (ICD-10) Status post appendectomy ?Z90.49 - Acquired absence of other specified parts of digestive tract (ICD- 10) History of tonsillectomy and adenoidectomy (12/26/08) ?Z90.89 - Acquired absence of other organs (ICD-10) History of hysteroscopy (12/26/08) ?Z98.890 - Other specified postprocedural states (ICD-10) History of discectomy (05/16/05) ?Z98.890 - Other specified postprocedural states (ICD-10) Family History Brother Alcohol dependence Father Prostate cancer Diabetes Coronary artery disease, Onset Age: 80 High blood pressure Aunt Breast cancer Social History Narrative: Her daughter, Asha, is helping her out at home after her recent surgery and stay at [facility]. Smoked 1ppd for 15 years, quit in 1986. SOCIAL HISTORY: as of February 2013. History of alcoholism but she has been sober for 36 years. Very involved in alcoholics anonymous meetings. Basically disabled. Originally from [place]. Not very physically active given her ongoing physical issues but she has been going for short walks sporadically in the last month or so. HABITS: No tobacco alcohol or recreational drug use. What is your current living situation?: I presently have a place to live Problems where you live: no known problems In the past 12 months, utilities in danger of being shut off: no In past 12 months, lack of transportation kept you from medical appts, meetings, work, or getting things needed for daily living: no In the past 12 mos, have been you worried that your food would run out before you had money to buy more?: never true In the past 12 mos, the food you bought just didn't last and you didn't have money to buy more?: never true Highest level of school completed/degree received: Master's degree Smoking Status: Former smoker What tobacco products do you use: cigarettes Years smoked: 16 Smoking quit date/years: >15 years ago Do you use any of these nicotine containing products: None Second hand tobacco smoke exposure: No How often do you have a drink containing alcohol: never How often do you have six or more drinks on one occasion: Never AUDIT-C Alcohol total score: 0 Non-prescribed substance use: denies use Caffeine: Yes How often does anyone, including family, friends and others, physically hurt you : never How often does anyone, including family, friends and others, insult or talk down to you: never How often does anyone, including family, friends and others, threaten you with harm: never How often does anyone, including family, friends and others, scream or curse at you: never service: No Exam Narrative: Exam Narrative: Constitutional: Appears well-developed and well-nourished. Alert. Alert. Not oriented to date. She knows that she is at the hospital and she recognizes her daughter. When asked her how she is doing, she says ?I am cold. ? Meaning that she is having chills. When asked her to be more specific about how she is feeling she is really not able to answer. When asked directly she is able to deny symptoms such as headache, sore throat, chest pain, etc. HENT: Head: Atraumatic. Nose: Nose normal. Mouth/Throat: Oral mucosa is clear and moist. no trismus. Pharynx subtly erythematous. Tonsils symmetric. No tonsillar enlargement, erythema, or exudate. Eyes: Conjunctivae normal. EOM normal. Pupils equal, round, and reactive to light. No scleral icterus. Neck: Normal range of motion. Neck supple. No tracheal deviation present. Cardiovascular: Normal rate, regular rhythm. No gallop. No friction rub. No murmur heard. Symmetric radial artery pulses Pulmonary/Chest: Effort normal. No stridor. No respiratory distress. No wheezes. No rales. No rhonchi . No tenderness. Abdominal: Soft. Bowel sounds normal. No distension. No mass. No tenderness. No rebound. No guarding. No CVA tenderness Musculoskeletal: RUE: Normal range of motion. No tenderness. No deformity LUE: Normal range of motion. No tenderness. No deformity RLE: Normal range of motion. No edema. No tenderness. No deformity LLE: Normal range of motion. No edema. No tenderness. No deformity Socks removed for skin exam and I do not see any foot ulcers or infections. Lymph: No cervical adenopathy. Neurological: Alert and oriented to person, place but not date. No focal weakness. CN II-VII intact. No sensory deficit. GCS eye subscore is 4. GCS verbal subscore is 5. GCS motor subscore is 6. Normal coordination Skin: Skin is warm and dry. No rash noted. No pallor. Normal capillary refill. Psychiatric: Flat affect. Disoriented. Exam limited. Const: Vital Signs, click to edit/add: Vital Signs - 24 hr 06/03/24 14:36 06/03/24 14:57 06/03/24 14:58 Temperature 97.8 F Pulse Rate 60 64 Pulse Rate [Right Pulse Oximeter] 74 Respiratory Rate 18 Blood Pressure 164/84 H Blood Pressure [Ri ght Upper Arm] 154/92 H Pulse Oximetry 95 96 94 Oxygen Delivery Me thod Room Air 06/03/24 15:00 06/03/24 15:02 Temperature Pulse Rate 64 61 Pulse Rate [Right Pulse Oximeter] Respiratory Rate Blood Pressure 167/83 H Blood Pressure [Ri ght Upper Arm] Pulse Oximetry 93 92 Oxygen Delivery Me thod Course Vital Signs Vital signs: Initial Vital Signs Temperature 97.8 F 06/03/24 14:36 Temperature Source Temporal Artery Scan 06/03/24 14:36 Pulse Rate 74 06/03/24 14:36 Pulse Rhythm Regular 06/03/24 14:36 Pulse Strength 3+ Normal 06/03/24 14:36 Respiratory Rate 18 06/03/24 14:36 Blood Pressure 154/92 H 06/03/24 14:36 Blood Pressure Mean 112 H 06/03/24 14:36 Blood Pressure Position Sitting 06/03/24 14:36 Pulse Oximetry 95 06/03/24 14:36 Oxygen Delivery Method Room Air 06/03/24 14:36 Vital Signs Temperature 97.8 F 06/03/24 14:36 Pulse Rate 74 06/03/24 14:36 Respiratory Rate 18 06/03/24 14:36 Blood Pressure 154/92 H 06/03/24 14:36 Pulse Oximetry 95 06/03/24 14:36 Oxygen Delivery Method Room Air 06/03/24 14:36 Temperature 97.8 F 06/03/24 14:36 Pulse Rate 61 06/03/24 15:02 Respiratory Rate 18 06/03/24 14:36 Blood Pressure 167/83 H 06/03/24 15:02 Pulse Oximetry 92 06/03/24 15:02 Oxygen Delivery Method Room Air 06/03/24 14:36 Medications Administered Medications: Discontinued Medications Generic Name Dose Route Start Last Admin Trade Name Ariel PRN Reason Stop Dose Admin Acetaminophen 1,000 mg 06/03/24 15:14 06/03/24 15:43 Acetaminophen 500 Mg Tablet PO 06/03/24 15:15 1,000 mg ONCE ONE Administration Sodium Chloride 1,000 mls @ 1,000 mls/hr 06/03/24 15:15 06/03/24 15:43 0.9 % Sodium Chloride 1000 Ml IV 06/03/24 16:14 1,000 mls/hr .Q1H ANMOL Administration Medical Decision Making MDM Narrative Medical decision making narrative: Pleasant 69-year-old female with a complex past medical history brought to the ER today by her daughter for evaluation of confusion and disoriented that was 1st noted today (normal yesterday) along with symptomatic hot and cold spells. I suspect she has had a fever. This is actually been ongoing since 3 days ago, on. Friday Differential for potential infection is broad. She does perhaps have mild cough. She has bibasilar rales on lung exam. COVID/influenza/RSV PCR is negative. Chest x-ray does show evidence for possible pneumonia, possible aspiration. Fortunately she is not hypoxic. She is stable vital signs and no evidence for septic shock. However she does have significant confusion. Blood culture is pending. Urinalysis shows no sign of infection. Skin exam is negative for any signs cellulitis or skin infection. Do not see any evidence for joint infection for septic arthritis. She does not have a headache. Consider noninfectious causes of confusion. Blood sugar is normal to slightly elevated at 180. No evidence for DKA or nonketotic hyperosmolar coma. Electrolytes and kidney function are normal. Head CT is negative. No chest pain or difficulty breathing to suggest cardiac cause of confusion. Discussed disposition with the patient and her family. Patient strongly wants to go home, but is confused and therefore not able to make her own medical decisions today. Although she is currently vital is stable and does not have hypoxia, with her confusion, she is not safe to be at home without a trusted adult. Daughter is not able to care for her tonight or tomorrow. She otherwise normally lives alone. There are no other family members who could care for her. Therefore patient requires hospitalization for nursing supportive care and monitoring for mental status. Discussed with our hospitalist, Dr. Bowens, at 5:15 p.m.. She graciously accepts this patient for admission. Lab Data Labs: Lab Results 06/03/24 06/03/24 Range/Units 15:35 16:21 WBC 11.10 H (4.50-11.00) K/uL RBC 5.17 (4.00-5.20) m/uL Hgb 15.1 (12.0-16.0) gm/dL Hct 46.0 (33.0-51.0) % MCV 89 (80-100) fL MCH 29 (26-34) pg MCHC 33 (32-36) gm/dL RDW Coeff of Steven 14.5 (11.5-15.5) % Plt Count 342 (140-440) K/uL Neut % (Auto) 69.7 (42.0-72.0) % Lymph % (Auto) 21.4 (20-44) % Whiteside % (Auto) 7.1 (0.0-11.0) % Eos % (Auto) 0.8 (0.0-7.0) % Baso % (Auto) 0.5 (0.0-3.0) % Neut # (Auto) 7.70 H (1.7-7.0) K/uL Lymph # (Auto) 2.40 (0.90-2.90) K/uL Whiteside # (Auto) 0.80 (0.00-0.90) K/UL Eos # (Auto) 0.10 (0.00-0.50) K/uL Baso # (Auto) 0.10 (0.00-0.30) K/uL Abs Immat Gran (auto) 0.10 (0.00-0.30) K/uL Imm/Tot Granulo (auto) 0.5 % Sodium 141 (135-149) mmol/L Potassium 4.1 (3.6-5.1) mmol/L Chloride 104 (96-114) mmol/L Carbon Dioxide 31 (20-32) mmol/L Anion Gap 6 L (7-15) mEq/L BUN 17 (7-30) mg/dL Creatinine 0.8 (0.5-1.5) mg/dL Estimated Creat Clear 52.05 Estimated GFR 79 ml/min Glucose 170 H (60-115) mg/dL Lactate 1.0 (0.5-1.9) mmol/L Calcium 9.8 (8.4-10.6) mg/dL Total Bilirubin 0.8 (0.1-1.5) mg/dL AST 23 (12-35) U/L ALT 21 (4-35) U/L Alkaline Phosphatase 64 (40-150) U/L Total Protein 7.3 (6.0-8.3) g/dL Albumin 4.4 (3.3-5.0) g/dL Urine Color Yellow (Yellow) Urine Appearance Cloudy A (Clear) Urine pH 7.0 (5.0-8.5) Ur Specific [place] 1.015 (1.000-1.030) Urine Protein Negative (Negative) Urine Glucose (UA) Negative (Negative) Urine Ketones Trace A (Negative) Urine Blood Negative (Negative) Urine Nitrite Negative (Negative) Urine Bilirubin Negative (Negative) Urine Urobilinogen 0.2 (0.2-1.0) Ur Leukocyte Esterase Negative (Negative) Urine RBC 0-2 (0-2) Urine WBC 0-2 (0-5) Ur Squamous Epith Cells None (None-Few) Urine Bacteria None (None) SARS-CoV-2 (PCR) Negative SARS-CoV-2 (Negative) Influenza Type A (PCR) Negative PCR FLU A (Negative) Influenza Type B (PCR) Negative PCR FLU B (Negative) RSV (PCR) Negative PCR RSV (Negative) Imaging Data CT scan - head: Attestation: I have reviewed the pertinent imaging results. Radiologist's impression: IMPRESSION: No acute intracranial abnormality. Chest x-ray: Attestation: I have reviewed the pertinent imaging results. Radiologist's impression: IMPRESSION: Low lung volumes with patchy bibasilar airspace disease, possibly aspiration or pneumonia in the appropriate clinical setting. Discharge Plan Discharge Clinical Impression: Pneumonia, Altered mental status Patient Disposition: Admitted As Observation
--- NOTE | 2024-06-03 15:14 | CRLHL7_ITS ---
For Patients: As a result of the Cures Act, medical imaging exams and procedure reports are released immediately into your electronic medical record. You may view this report before your referring provider. If you have questions, please contact your health care provider. INDICATION: Fever, altered mental status. TECHNIQUE: Chest 2 views. COMPARISON: January 13, 2022. FINDINGS: Cardiovascular and mediastinum: Heart size and vasculature are normal in caliber and appearance. Lungs and pleural spaces: Low lung volumes with patchy bibasilar airspace disease. No sign of pleural effusion. No pneumothorax. Bones and soft tissues: No significant findings. IMPRESSION: Low lung volumes with patchy bibasilar airspace disease, possibly aspiration or pneumonia in the appropriate clinical setting. Dictated by Reese Arango MD @ 06/03/2024 4:22:54 PM (Electronically Signed)
--- NOTE | 2024-06-03 15:15 | CRLHL7_ITS ---
For Patients: As a result of the Century Cures Act, medical imaging exams and procedure reports are released immediately into your electronic medical record. You may view this report before your referring provider. If you have questions, please contact your health care provider. INDICATION: Altered mental status. TECHNIQUE: CT head without contrast. COMPARISON: None available. FINDINGS: Cerebral parenchyma: No evidence of acute territorial infarct. No acute intraparenchymal hemorrhage. No significant mass effect/midline shift. Normal mccian-white matter differentiation. Extra-axial spaces: No extra-axial collection or hemorrhage. Ventricles: Unremarkable. Calvarium: Intact. Visualized paranasal sinuses/mastoid air cells: Grossly clear. Posterior fossa: No cerebellar tonsillar herniation. Visualized orbits: No acute abnormality. IMPRESSION: No acute intracranial abnormality. Please note that all CT scans at this facility use dose modulation, iterative reconstruction, and/or weight-based dosing when appropriate to reduce radiation dose to as low as reasonably achievable. Dictated by Franco Cheng MD @ 06/03/2024 4:19:41 PM (Electronically Signed)
--- OUTSIDE RECORDS SUMMARY | 2024-06-03 15:42 | XMS_ITS | Encounter Summary ---
Author Organization [facility] Address [address] [place] [id number] Care Team Providers Care Speech Language Pathologist Prn Name Role Phone Denise Harris MD Primary Care Provider [phone] Anoop Emery MD Unavailable [phone] In[address] Peck See Luis Antonio GARZA Unavailable [phone] Inez Peck See Luis Antonio GARZA Unavailable [phone] Encounter Details Date Type Department Care Team (Late st Contact Info) Description 04/09/2018 [facility] Medical Advice [address] [address] Jeanine Ford DPJose Roberto, Podiatry/Foot and Ankle Surgery [id number] [place] [address] [address] Foot pain, bilateral (Primary Dx) Social History Tobacco Use Types Packs/Day Years Used Date Smoking Tobacco: Former Smokeless Tobacco: Never Comments:quit 1987 Alcohol Use Standard Drinks/Week Comments Not Asked 0 (1 standard drink = 0.6 oz pur e alcohol) Comments No Sex and Gender Information Value Date Recorded Sex Assigned at Female 10/30/2020 4:00 PM CDT Legal Sex Female 3:37 AM [employer] Gender Identity Female 10/30/2020 4:00 PM CDT Sexual Orientation Bisexual 10/30/2020 4: 00 PM CDT documented as of this encounter Miscellaneous Notes * Telephone Encounter - Ni Taveras RN - 04/09/2018 2:27 PM CST Please see mychart request for ibuprofen and medical records. It looks like a consult letter was already in the process of being sent. Geri Taveras RN [employer] documented in this encounter Plan of Treatment Not on file documented as of this encounter Visit Diagnoses Diagnosis Foot pain, bilateral- Primary documented in this encounter Care Teams Speech Language Pathologist Prn Relationship Specialty Start Date End Date Denise Harris MD [address] [address] PCP - General Internal Medicine 01/17/15 Anoop Emery MD [address] [address] Referring Physician Family Medicine 09/15/20 Inez Peck MD [address] [place] [address] [id number] Urology 09/15/20 Inez Peck MD [address] [place] [id number] Assigned Surgical Provider 11/12/20 05/10/22 documented as of this encounter
[2024-06-03] MEDS: ACETAMINOPHEN 500 MG TABLET 1000 MG PO (15:43)
[2024-06-03] MEDS: 0.9 % SODIUM CHLORIDE 1000 ml 1,000 ML IV (15:43)
--- OUTSIDE RECORDS SUMMARY | 2024-06-03 15:43 | XMS_ITS | Clinical Summary ---
Author Organization [facility] Address [address], [place] [address] Care Team Providers Care Recovery Room Rn Name Role Phone Thalia Barron PA-C Primary Care Provider Un available Source Comments You are receiving this document as you are listed as the primary care provider,follow-up provider, or the patient has been referred to you for consultation.This is in compliance with the Medicare and[facility] EHR Incentive Program,which states Providers who transition their patient to another setting of careor provider of care or refers their patient to another provider of care shouldprovide summary care record for each transition of care or referral. [employer] [facility] Allergies Active Allergy Reactions Criticality Noted Date [...] eczema on hand 15 04/26/19 10 Active [place]-3 Fatty Acids ([facility] FISH OIL) 1200 MG [...] 04/26/19 10 Active nystatin-triamci nolone (AKA MYCOLOG-II) 385053-8.1 UNIT/GM-% cream Apply 1 Applicatorful topically 3 [...] Comments Blood Pressure 118/80 05/01/2009 7:20 AM SENIOR POLICY ANALYST C: Dynamap Pulse 102 05/01/2009 7:20 AM SENIOR POLICY ANALYST Temperature 36.7 C (98.1 F) 05/01/2009 7:20 AM SENIOR POLICY ANALYST ORAL C: 98.1 F Respiratory Rate 16 05/01/2009 7:20 AM SENIOR POLICY ANALYST Oxygen Saturation 96% 05/01/2009 7:2 1 AM SENIOR POLICY ANALYST Inhaled Oxygen Concentration - - Weight [...] patient's age to complete this topic Insurance [facility] [address] [place] [address] [place] [employer] [employer] MANAGED CARE BS Care Teams Recovery Room Rn Relationship Specialty Start Date End Date Thalia Barron PA-C PCP - General Physician Second Helper 10/06/18
--- OUTSIDE RECORDS SUMMARY | 2024-06-03 15:43 | XMS_ITS | Clinical Summary ---
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
--- OUTSIDE RECORDS SUMMARY | 2024-06-03 15:43 | XMS_ITS | Encounter Summary ---
Author Organization [facility] Address [address] [place] [address] Care Team Providers Care Milk Runner Name Role Phone Denise Harris MD Primary Care Provider Anoop Emery MD Unavailable [phone] Inez Peck MD Unavailable [phone] Inez Peck MD Unavailable [phone] Encounter Details Date Type Department Care Team (Late st Contact Info) Description 10/31/2020 MyC Medical Advice [facility] [address] [place] [address] Inez Peck MD [address] [facility] [address] [place] [address] Social History Tobacco Use Types [...] CDT 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 Gender Identity Female 10/30/2020 4:00 PM CDT [...] on filedocumented in this encounter Care Teams Milk Runner Relationship Specialty Start Date End Date Denise Harris MD [facility] [address] [place] [address] PCP - General Internal Medicine 01/17/15 Anoop Emery MD [facility] [address] [place] [address] Referring Physician Family Medicine 09/15/20 Inez Peck MD [address] [place] [address] [address] [place], [place] [address] Urology 09/15/20 Inez Peck MD [address] [place] [id number] Assigned Surgical Provider 11/12/20 05/10/22 documented as of this encounter
[2024-06-03 15:45] LABS: Basophils Percent Auto 0.5 % (0.0-3.0); Eosinophils Percent Auto 0.8 % (0.0-7.0); Hemoglobin* 15.1 gm/dL (12.0-16.0); Immature Granulocytes Pct Auto 0.5 %; Lymphocytes Percent Auto 21.4 % (20-44); Mean Corpuscular HGB Conc 33 gm/dL (32-36); Mean Corpuscular Hemoglobin 29 pg (26-34); Mean Corpuscular Volume 89 fL (80-100); Monocytes Percent Auto 7.1 % (0.0-11.0); Neutrophils Percent Auto 69.7 % (42.0-72.0); Platelet Count* 342 K/uL (140-440); RDW Coefficient of Variation % 14.5 % (11.5-15.5); Red Blood Count 5.17 m/uL (4.00-5.20)
[2024-06-03 16:02] LABS: Albumin* 4.4 g/dL (3.3-5.0); Chloride* 104 mmol/L (96-114)
[2024-06-03 16:03] LABS: Potassium* 4.1 mmol/L (3.6-5.1); Slide Review Reflex No; Sodium* 141 mmol/L (135-149)
[2024-06-03 16:05] LABS: Alanine Aminotransferase* 21 U/L (4-35); Anion Gap 6 mEq/L (7-15); Aspartate Amino Transferase* 23 U/L (12-35); Blood Urea Nitrogen* 17 mg/dL (7-30); Carbon Dioxide* 31 mmol/L (20-32); Creatinine* 0.8 mg/dL (0.5-1.5); Est. Creatinine Clearance* 52.05; Estimated Glomerular Filt Rate 79 ml/min
[2024-06-03 16:06] LABS: Alkaline Phosphatase* 64 U/L (40-150); Bilirubin Total* 0.8 mg/dL (0.1-1.5); Calcium* 9.8 mg/dL (8.4-10.6); Glucose* 170 mg/dL (60-115); Total Protein* 7.3 g/dL (6.0-8.3)
[2024-06-03 16:17] LABS: PCR FLU A Negative PCR FLU A (Negative); PCR FLU B Negative PCR FLU B (Negative); PCR RSV Negative PCR RSV (Negative); SARS PCR* Negative SARS-CoV-2 (Negative)
[2024-06-03 16:30] LABS: Appearance Urine Cloudy (Clear); Bilirubin Urine Negative (Negative); Blood Urine Negative (Negative); Color Urine Yellow (Yellow); Glucose Urine Negative (Negative); Ketones Urine Trace (Negative); Leukocyte Esterase Urine Negative (Negative); Nitrite Urine Negative (Negative); Protein Urine Negative (Negative); Specific Gravity Urine 1.015 (1.000-1.030); Urobilinogen Urine 0.2 (0.2-1.0)
[2024-06-03 16:51] LABS: RBC Urine 0-2 (0-2); WBC Urine 0-2 (0-5)
[2024-06-03 17:32] LABS: Amphetamine Screen Urine Negative (Negative); Barbiturate Screen Urine Negative (Negative); Benzodiazepines Screen Urine Negative (Negative); Cannabinoid Screen Urine Negative (Negative); Cocaine Screen Urine Negative (Negative); Methadone Screen Urine Negative (Negative); Methamphetamines Screen Urine Negative (Negative); Opiate Screen Urine Negative (Negative); Oxycodone Screen Urine POSITIVE (Negative); Phencyclidine Screen Urine Negative (Negative); Tricyclic Antidepressant Urine POSITIVE (Negative)
[2024-06-03] MEDS: cefTRIAXone 1 GM in 0.9 % SODIUM CHLORIDE Mini-bag 100 ML IVPB (17:42)
--- NOTE | 2024-06-03 19:08 | P.IMHP_ITS ---
Assessment and Plan Assessment and plan (1) Altered mental status: Problem comment: - ddx: CAP, other viral illness, UTI, metabolic encephalopathy, iatrogenic - appears to be clearing upon admission and endorses no change in medications recently - monitoring, telemetry, therapy evaluations, blood and urine cultures pending - CT head reassuring on 06/03/2024, consider MRI pending clinical course - hold sedating home medications Status: Acute (2) Pneumonia: Problem comment: - probably on CXR 06/03 (patchy bibasilar airspace disease) - was having hot flashes and chills over the past week, possibly related to this Status: Acute (3) Chronic insomnia: Problem comment: - on Trazodone and Doxepin Status: Acute (4) Chronic low back pain: Problem comment: - on Oxycodone, Pregabalin Status: Acute (5) Polypharmacy: Problem comment: - increases risk for AMS, may need more assistance at home vs medication reduction Status: Acute Plan - per above - daughter Asha updated at bedside, questions answered Hospitalist- H&P: HPI History of Present Illness Date Seen: 06/03/24 Chief complaint: confusion, glucose pending Narrative: Yaz Multani is a 69 year old female who presented to the emergency room at the behest of her PCP for confusion. She had an appointment with Dr. Emery at 1pm (had made this for hot flashes), and seemed to be having word-finding difficulties while there. He recommended emergency room evaluation. She was accompanied by daughter Asha who also noted that patient had endorsed left eye visual deficits earlier in the day and seemed confused to her as well. Asha sets up Yaz's medications; there have been no recent changes, and no concern of her taking extra of any of her prescribed medications. No sick contacts. ER: - probable PNA on CXR - Ceftriaxone and Azithromycin initiated - no acute abnormalities on head CT - WBC 11 with 69% PMNs, BG 170s, normal electrolytes, lactate, liver panel - UTox + for Oxycodone and TCAs (on Oxycodone, and also on Venlafaxine which can cause + TCA) Patient had started to clear in the emergency room, but there was still concern that she was unable to be home alone at this time and has no family that can stay with her overnight. She is admitted for monitoring, antibiotics for presume CAP, therapy evaluations. Upon arrival to the floor, she notes feeling hungry. Has some discomfort in R back (area of chronic pain, baseline), vision concerns have resolved. Histories reviewed below, Dr. Emery is PCP locally. Review of Systems Status of ROS: Reports: unobtainable due to mental status [facility] Medical History (Updated 06/03/24 @ 20:46 by Reyna Bowens MD) Sepsis ?A41.9 - Sepsis, unspecified organism (ICD-10) Surgical wound infection ?T81.49XA - Infection following a procedure, other surgical site, initial encounter (ICD-10) Yeast vaginitis ?B37.31 - Acute candidiasis of vulva and vagina (ICD-10) Itchy eyes ?R68.89 - Other general symptoms and signs (ICD-10) Lesion of nose ?J34.89 - Other specified disorders of nose and nasal sinuses (ICD-10) Urinary tract infection ?N39.0 - Urinary tract infection, site not specified (ICD-10) Hx of cold sores ?Z86.19 - Personal history of other infectious and parasitic diseases (ICD- 10) Fracture of distal fibula ?S82.839A - Other fracture of upper and lower end of unspecified fibula, initial encounter for closed fracture (ICD-10) Pelvic floor dysfunction in female ?M62.89 - Other specified disorders of muscle (ICD-10) Pain of soft tissue of extremity ?M79.609 - Pain in unspecified limb (ICD-10) Spinal stenosis of lumbar region ?M48.061 - Spinal stenosis, lumbar region without neurogenic claudication (ICD-10) Spinal stenosis of cervical region ?M48.02 - Spinal stenosis, cervical region (ICD-10) Restless legs syndrome ?G25.81 - Restless legs syndrome (ICD-10) Hypertension (04/13/09) ?I10 - Essential (primary) hypertension (ICD-10) Pulmonary embolism (05/04/09) ?I26.99 - Other pulmonary embolism without acute cor pulmonale (ICD-10) 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 ?G89.29 - Other chronic pain (ICD-10) Thyroid nodule ?E04.1 - Nontoxic single thyroid nodule (ICD-10) Obstructive sleep apnea treated with continuous positive airway pressure (CPAP) (12/26/08) ?G47.33 - Obstructive sleep apnea (adult) (pediatric) (ICD-10) ?Z99.89 - Dependence on other enabling machines and devices (ICD-10) Low back pain potentially associated with radiculopathy (05/12/12) ?M54.50 - Low back pain, unspecified (ICD-10) Type 2 diabetes mellitus ?E11.9 - Type 2 diabetes mellitus without complications (ICD-10) Tubular adenoma of colon ?D12.6 - Benign neoplasm of colon, unspecified (ICD-10) Trochanteric bursitis of left hip ?M70.62 - Trochanteric bursitis, left hip (ICD-10) Trigeminal neuralgia ?G50.0 - Trigeminal neuralgia (ICD-10) Rosacea (12/26/08) ?L71.9 - Rosacea, unspecified (ICD-10) Pulmonary embolism (04/2009) ?I26.99 - Other pulmonary embolism without acute cor pulmonale (ICD-10) Plantar fasciitis, bilateral ?M72.2 - Plantar fascial fibromatosis (ICD-10) Pain of left hip ?M25.552 - Pain in left hip (ICD-10) Obesity (12/26/08) ?E66.9 - Obesity, unspecified (ICD-10) Neuropathy of lower extremity ?G57.90 - Unspecified mononeuropathy of unspecified lower limb (ICD-10) Irritable bowel syndrome (12/26/08) ?K58.9 - Irritable bowel syndrome without diarrhea (ICD-10) Gastroesophageal reflux (12/26/08) ?K21.9 - Gastro-esophageal reflux disease without esophagitis (ICD-10) Fibromyalgia (12/26/08) ?M79.7 - Fibromyalgia (ICD-10) Depression (12/26/08) ?F32.A - Depression, unspecified (ICD-10) Constipation ?K59.00 - Constipation, unspecified (ICD-10) Chronic pain syndrome ?G89.4 - Chronic pain syndrome (ICD-10) Chronic insomnia ?F51.04 - Psychophysiologic insomnia (ICD-10) Acute lumbar radiculopathy ?M54.16 - Radiculopathy, lumbar region (ICD-10) Achilles tendinitis of both lower extremities ?M76.61 - Achilles tendinitis, right leg (ICD-10) ?M76.62 - Achilles tendinitis, left leg (ICD-10) Surgical History Hx of cervical spine surgery ?Z98.890 - Other specified postprocedural states (ICD-10) History of arthroscopy of right knee (12/2004) ?Z98.890 - Other specified postprocedural states (ICD-10) H/O arthroscopy of left knee (1997) ?Z98.890 - Other specified postprocedural states (ICD-10) 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) ?Z96.652 - Presence of left artificial knee joint (ICD-10) History of nasal septoplasty ?Z98.890 - Other specified postprocedural states (ICD-10) H/O dilation and curettage ?Z98.890 - Other specified postprocedural states (ICD-10) History of total right knee replacement (12/18/11) ?Z96.651 - Presence of right artificial knee joint (ICD-10) Status post appendectomy ?Z90.49 - Acquired absence of other specified parts of digestive tract (ICD-10) History of tonsillectomy and adenoidectomy (12/26/08) ?Z90.89 - Acquired absence of other organs (ICD-10) History of hysteroscopy (12/26/08) ?Z98.890 - Other specified postprocedural states (ICD-10) History of discectomy (05/16/05) ?Z98.890 - Other specified postprocedural states (ICD-10) Family History Brother Alcohol dependence Father Prostate cancer Diabetes Coronary artery disease, Onset Age: 80 High blood pressure Aunt Breast cancer Social History (Updated 06/03/24 @ 20:36 by Reyna Bowens MD) Narrative: Daughter Asha lives locally and is medical decision maker if needed. Requests DNR/DNI status SOCIAL HISTORY: as of February 2013. History of alcoholism but she has been sober for 36 years. Very involved in alcoholics anonymous meetings. Basically disabled. Originally from [place]. Not very physically active HABITS: No current tobacco use (15 pack year history, quit 1986), no recreational drug use. No ETOH use What is your current living situation?: I presently have a place to live Problems where you live: no known problems Problems where you live details: n/a In the past 12 months, utilities in danger of being shut off: unable to answer In past 12 months, lack of transportation kept you from medical appts, meetings, work, or getting things needed for daily living: no In the past 12 mos, have been you worried that your food would run out before you had money to buy more?: unable to answer In the past 12 mos, the food you bought just didn't last and you didn't have money to buy more?: unable to answer Highest level of school completed/degree received: Master's degree Smoking Status: Former smoker What tobacco products do you use: cigarettes Years smoked: 16 Smoking quit date/years: >15 years ago Do you use any of these nicotine containing products: None Second hand tobacco smoke exposure: No How often do you have a drink containing alcohol: never How often do you have six or more drinks on one occasion: Never AUDIT-C Alcohol total score: 0 Non-prescribed substance use: denies use Caffeine: Yes How often does anyone, including family, friends and others, physically hurt you : unable to answer How often does anyone, including family, friends and others, insult or talk down to you: unable to answer How often does anyone, including family, friends and others, threaten you with harm: unable to answer How often does anyone, including family, friends and others, scream or curse at you: unable to answer service: No Meds Home Medications and Allergies Home Medications ?Medication ?Instructions ?Recorded ?Confirmed ?Type Fish Oil 1 tab PO QDAY 10/17/21 06/03/24 History qswzdbr-xyxykrdjb-lvnx tablet 1 tab PO .qd 10/17/21 06/03/24 History coenzyme Q10 100 mg capsule 100 mg PO DAILY 10/17/21 06/03/24 History ferrous fumarate-vitamin C 132 1 tab PO QDAY 10/17/21 06/03/24 History mg-250 mg tablet ginkgo biloba 40 mg tablet 40 mg PO QDAY 10/17/21 06/03/24 History prednisolone acetate 1 % eye drp ophthalmic (eye) 09/08/23 06/03/24 History drops,suspension doxepin 10 mg capsule 10 mg PO QPM 11/25/23 06/03/24 History trazodone 100 mg tablet 300 mg PO HS 05/24/24 06/03/24 History valacyclovir 500 mg tablet 500 mg PO BID PRN 05/24/24 06/03/24 History Allergies Allergy/AdvReac Type Severity Reaction Status Date / Time mupirocin Allergy Unknown Verified 06/03/24 14:41 Exam Narrative: Exam Narrative: GEN: Laying comfortably in bed, does not appear acutely ill HEENT: Normal external ears, EOMIs bilaterally, no scleral icterus CV: RRR, No concerning murmurs R: LCTA bilaterally without concerning wheezing, mild decreased bibasilar breath sounds Ext: wwp, no concerning edema Skin: No concerning skin lesions or rashes on exposed skin Neuro: EOMIs, no facial droop, tongue protrudes midline, normal and symmetric 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, no tremor, gait not observed Psych: + psychomotor slowing but answering questions appropriately, no agitation, improves during our interview and requests to have a turkey sandwich Const: Vital Signs, click to edit/add: Vital Signs - 24 hr 06/03/24 14:36 06/03/24 14:57 06/03/24 14:58 Temperature 97.8 F Pulse Rate 60 64 Pulse Rate [Right Pulse Oximeter] 74 Respiratory Rate 18 Blood Pressure 164/84 H Blood Pressure [Ri ght Upper Arm] 154/92 H Pulse Oximetry 95 96 94 Oxygen Delivery Me thod Room Air 06/03/24 15:00 06/03/24 15:02 06/03/24 15:03 Temperature Pulse Rate 64 61 67 Pulse Rate [Right Pulse Oximeter] Respiratory Rate Blood Pressure 167/83 H Blood Pressure [Ri ght Upper Arm] Pulse Oximetry 93 92 91 Oxygen Delivery Me thod 06/03/24 15:15 06/03/24 15:17 06/03/24 16:50 Temperature Pulse Rate 64 62 57 L Pulse Rate [Right Pulse Oximeter] Respiratory Rate Blood Pressure Blood Pressure [Ri ght Upper Arm] Pulse Oximetry 93 96 96 Oxygen Delivery Me thod 06/03/24 16:51 06/03/24 17:00 06/03/24 17:15 Temperature Pulse Rate 62 59 L 56 L Pulse Rate [Right Pulse Oximeter] Respiratory Rate Blood Pressure 153/96 H Blood Pressure [Ri ght Upper Arm] Pulse Oximetry 96 95 95 Oxygen Delivery [facility] 06/03/24 17:20 Temperature Pulse Rate 56 L Pulse Rate [Right Pulse Oximeter] Respiratory Rate Blood Pressure Blood Pressure [Ri ght Upper Arm] Pulse Oximetry 96 Oxygen Delivery [facility] Hospitalist - H&P: Result Labs Labs: Short CBC 06/03/24 Range/Units 15:35 WBC 11.10 H (4.50-11.00) K/uL Hgb 15.1 (12.0-16.0) gm/dL Hct 46.0 (33.0-51.0) % Plt Count 342 (140-440) K/uL BMP 06/03/24 15:35 Sodium 141 Potassium 4.1 Chloride 104 Carbon Dioxide 31 BUN 17 Creatinine 0.8 Glucose 170 H Calcium 9.8 Liver Function 06/03/24 Range/Units 15:35 Total Bilirubin 0.8 (0.1-1.5) mg/dL AST 23 (12-35) U/L ALT 21 (4-35) U/L Alkaline Phosphatase 64 (40-150) U/L Albumin 4.4 (3.3-5.0) g/dL Urine 06/03/24 Range/Units 16:21 Urine Color Yellow (Yellow) Urine Appearance Cloudy A (Clear) Urine pH 7.0 (5.0-8.5) Ur Specific [place] 1.015 (1.000-1.030) Urine Protein Negative (Negative) Urine Glucose (UA) Negative (Negative)
[2024-06-03] MEDS: METFORMIN 500 MG TABLET 1000 MG PO (19:56)
--- NOTE | 2024-06-03 20:05 | PC.NURSE ---
End of shift [id number] - Arrived from ED at approximately 1805 with daughter at bedside. Pt appeared tearful and unable to find words. Daughter answered most of admission questions and stated that AMS is not pt baseline. Pt struggled to communicate needs/discomforts verbally. Tolerating RA and regular diet/fluids. Appears to be resting comfortably in bed with call light within reach at end of shift.
[2024-06-03] MEDS: AZITHROMYCIN 500 MG in 0.9 % SODIUM CHLORIDE 250 ml 250 ML 255 MG IVPB (20:13)
[2024-06-03] MEDS: SODIUM CHLORIDE 0.9 % (FLUSH) 10 ML SYRINGE 5 ML IVF (20:15)
[2024-06-03] MEDS: 0.9 % SODIUM CHLORIDE 250 ml IV (20:18)
[2024-06-03] MEDS: TRAZODONE HCL 50 MG TABLET 300 MG PO (20:21)
[2024-06-03] MEDS: LIDOCAINE 5% PATCH 1 PATCH TRANSDERMA (22:59)
[2024-06-03] MEDS: INSULIN ASPART 100 UNIT/ML SUBCUT (23:00)
[2024-06-04 02:26] VITALS: BP 141/77; PULSE 81; RESP 18; TEMP 36.4; O2SAT 90
--- NOTE | 2024-06-04 05:27 | PC.NURSE ---
Shift note: Pt continue with difficulty finding words. Alert and oriented. Ambulated with A1, walker and GB. She takes pill whole with water. Pt asked SCD to be removed few minutes after they were applied, said I am not comfortable with it. Vitally stable.
[2024-06-04 07:00] VITALS: BP 134/88; PULSE 69; RESP 16; TEMP 36.2; O2SAT 90; O2SAT 93
[2024-06-04 07:20] LABS: Chloride* 108 mmol/L (96-114)
[2024-06-04 07:21] LABS: Albumin* 4.2 g/dL (3.3-5.0); Potassium* 3.7 mmol/L (3.6-5.1); Sodium* 141 mmol/L (135-149)
[2024-06-04 07:22] LABS: Basophils Absolute Auto 0.06 K/uL (0.00-0.30); Basophils Percent Auto 0.6 % (0.0-3.0); Eosinophils Absolute Auto 0.21 K/uL (0.00-0.50); Hematocrit 43.1 % (33.0-51.0); Hemoglobin* 14.2 gm/dL (12.0-16.0); Immature Granulocytes Abs Auto 0.03 K/uL (0.00-0.30); Immature Granulocytes Pct Auto 0.3 %; Lymphocytes Absolute Auto 2.82 K/uL (0.90-2.90); Lymphocytes Percent Auto 26.3 % (20-44); Mean Corpuscular HGB Conc 33 gm/dL (32-36); Mean Corpuscular Hemoglobin 29 pg (26-34); Mean Corpuscular Volume 89 fL (80-100); Neutrophils Absolute Auto 6.85 K/uL (1.7-7.0); Neutrophils Percent Auto 63.8 % (42.0-72.0); Platelet Count* 340 K/uL (140-440); RDW Coefficient of Variation % 14.5 % (11.5-15.5); Red Blood Count 4.87 m/uL (4.00-5.20); White Blood Count* 10.72 K/uL (4.50-11.00)
[2024-06-04 07:23] LABS: Alanine Aminotransferase* 21 U/L (4-35); Anion Gap 9 mEq/L (7-15); Aspartate Amino Transferase* 21 U/L (12-35); Blood Urea Nitrogen* 15 mg/dL (7-30); Carbon Dioxide* 24 mmol/L (20-32); Creatinine* 0.7 mg/dL (0.5-1.5); Est. Creatinine Clearance* 52.05; Estimated Glomerular Filt Rate 92 ml/min
[2024-06-04 07:24] LABS: Alkaline Phosphatase* 63 U/L (40-150); Bilirubin Total* 0.7 mg/dL (0.1-1.5); Calcium* 9.3 mg/dL (8.4-10.6); Glucose* 191 mg/dL (60-115); Total Protein* 6.8 g/dL (6.0-8.3)
[2024-06-04 07:30] LABS: Slide Review Reflex No
[2024-06-04 07:40] VITALS: PULSE 69
--- NOTE | 2024-06-04 09:46 | CRLHL7_ITS ---
For Patients: As a result of the Century Cures Act, medical imaging exams and procedure reports are released immediately into your electronic medical record. You may view this report before your referring provider. If you have questions, please contact your health care provider. INDICATION: Word-finding difficulties TECHNIQUE: Noncontrast Sagittal T1,Axial FSE T2, Flair, DWI images submitted. Compared to CT of the head performed on June 03, 2024 FINDINGS: Mild cerebral atrophy. The ventricles, sulci and gyri are of normal size, shape and contour for age and degree of atrophy. Midline structures are centrally located. No convincing evidence of suspicious intra- or extra-axial fluid collections. Mild patchy regions of increased T2 signal within the periventricular and subcortical white matter of both cerebral hemispheres. No regions of restricted diffusion. IMPRESSION: 1. Stable, no radiographic evidence of acute intracranial abnormalities. 2. Mild cerebral atrophy. 3. Mild supratentorial white matter changes that are non-specific, but statistically most likely related to chronic small vessel ischemic disease. Dictated by Dwayne Spain MD @ 06/04/2024 2:09:12 PM (Electronically Signed)
[2024-06-04] MEDS: hydroCHLOROthiazide 25 MG TABLET PO (09:49)
[2024-06-04] MEDS: SODIUM CHLORIDE 0.9 % (FLUSH) 10 ML SYRINGE 5 ML IVF ×2 (09:50→20:41)
[2024-06-04] MEDS: METFORMIN 500 MG TABLET 1000 MG PO ×2 (09:50→18:21)
[2024-06-04] MEDS: VENLAFAXINE ER 75 MG CAPSULE PO (09:50)
[2024-06-04] MEDS: INSULIN ASPART 100 UNIT/ML SUBCUT (09:51)
[2024-06-04] MEDS: VENLAFAXINE ER 75 MG CAPSULE 150 MG PO (09:54)
[2024-06-04] MEDS: ACETAMINOPHEN 325 MG TABLET 975 MG PO ×2 (09:55→16:40)
[2024-06-04 11:00] VITALS: BP 156/78; PULSE 77; RESP 18; TEMP 36.1; O2SAT 94
--- NOTE | 2024-06-04 11:29 | P.IMPN_ITS ---
Assessment and Plan Assessment and plan (1) Altered mental status: Problem comment: - ddx: CAP, other viral illness, UTI, metabolic encephalopathy, iatrogenic - appears to be clearing upon admission and endorses no change in medications recently - monitoring, telemetry, therapy evaluations, blood and urine cultures pending - CT head reassuring on 06/03/2024, consider MRI pending clinical course - hold sedating home medications 06/04 persists. Unknown baseline mental status. Will obtain brain MRI given difficulty word finding. Labs unremarkable. UA negative. BC pending. Pharmacy to review home medications with daughter, cross referencing with PCP list and recent pharmacy fills Status: Acute (2) Pneumonia: Problem comment: - probably on CXR 06/03 (patchy bibasilar airspace disease) - was having hot flashes and chills over the past week, possibly related to this 06/04 continues to complain of chills. Remains afebrile Continue ceftriaxone and azithromycin Status: Acute (3) Chronic insomnia: Problem comment: - on Trazodone and Doxepin 06/04 pharmacy confirming doses. Unknown if recent interrupted sleep, worsening, which could lead to worsening altered mental status Status: Acute (4) Chronic low back pain: Problem comment: - on Oxycodone, Pregabalin Status: Acute (5) Polypharmacy: Problem comment: - increases risk for AMS, may need more assistance at home vs medication reduction 06/04 appreciate pharmacy assisting with medications. Will adjust appropriately Status: Acute Plan Complete MRI. Continue hospitalization for another night, monitoring. Reassess tomorrow for ability to discharge home Total Time Spent Total Time Spent: Today I spent 60 minutes seeing the patient, discussing the patient with ER staff, reviewing Expanse and Epic notes/diagnostics, discussing the care plan with our team that includes social work, PT/OT, pharmacy, RT, retirement and documenting my impressions and plan in the medical record. Subjective Date Seen: 06/04/24 Interval history: Patient is seen sitting up in a chair by the window this morning. Confused. Oriented to self and place, not time/date. Slow to answer questions. Obvious difficulty word finding. Easily frustrated. Denies headache or dizziness. Denies pain of any sort currently. Denies chest pain or shortness of breath. Feels cold. Tolerating orals without nausea vomiting. Has remained afebrile. Vitally stable. Concern for polypharmacy. Patient currently is not able to tell me how her daughter administers her medications other than that she does manage them for her. Patient is unable to tell me if she has taking any extra pills out of her bottles recently. Exam Narrative: Exam Narrative: PHYSICAL EXAM General: Reserved, mildly anxious, otherwise NAD HEENT: Normocephalic, atraumatic, sclera white, EOMI, oral mucosa moist Cardiovascular: RRR, S1S2. No pitting edema Pulmonary: CTA bilaterally without rhonchi, rales, expiratory wheezes. No dyspnea on room air Neurological: Alert, oriented x2, slow to answer questions, confused, poor recall, cranial nerves intact, otherwise no focal findings Extremities: No gross joint deformity or swelling. AROMI. Neurovascularly intact Skin: Warm, dry. Const: Vital Signs, click to edit/add: Vital Signs - 24 hr 06/03/24 14:36 06/03/24 14:57 06/03/24 14:58 Temperature 97.8 F Pulse Rate 60 64 Pulse Rate [Pulse Oximeter] Pulse Rate [Right Pulse Oximeter] 74 Respiratory Rate 18 Blood Pressure 164/84 H Blood Pressure [Le ft Arm] Blood Pressure [Ri ght Upper Arm] 154/92 H Pulse Oximetry 95 96 [facility] 06/03/24 15:00 06/03/24 15:02 06/03/24 15:03 Temperature Pulse Rate 64 61 67 Pulse Rate [Pulse Oximeter] Pulse Rate [Right Pulse Oximeter] Respiratory Rate Blood Pressure 167/83 H Blood Pressure [Le ft Arm] Blood Pressure [Ri ght Upper Arm] Pulse Oximetry 93 92 91 Oxygen Delivery Tx thod 06/03/24 15:15 06/03/24 15:17 06/03/24 16:50 Temperature Pulse Rate 64 62 57 L Pulse Rate [Pulse Oximeter] Pulse Rate [Right Pulse Oximeter] Respiratory Rate Blood Pressure Blood Pressure [Le ft Arm] Blood Pressure [Ri ght Upper Arm] Pulse Oximetry 93 96 96 Oxygen Delivery Tx thod 06/03/24 16:51 06/03/24 17:00 06/03/24 17:15 Temperature Pulse Rate 62 59 L 56 L Pulse Rate [Pulse Oximeter] Pulse Rate [Right Pulse Oximeter] Respiratory Rate Blood Pressure 153/96 H Blood Pressure [Le ft Arm] Blood Pressure [Ri ght Upper Arm] Pulse Oximetry 96 95 95 Oxygen Delivery Me thod 06/03/24 17:20 06/03/24 19:54 06/03/24 19:54 Temperature 97.9 F Pulse Rate 56 L Pulse Rate [Pulse Oximeter] 53 L Pulse Rate [Right Pulse Oximeter] Respiratory Rate 16 18 Blood Pressure Blood Pressure [Le ft Arm] Blood Pressure [Ri ght Upper Arm] Pulse Oximetry 96 95 95 Oxygen Delivery Me od Room Air Room Air 06/03/24 22:39 06/03/24 23:00 06/03/24 23:00 Temperature 97.7 F Pulse Rate 73 Pulse Rate [Pulse Oximeter] 75 75 Pulse Rate [Right Pulse Oximeter] Respiratory Rate 18 18 Blood Pressure Blood Pressure [Le ft Arm] 163/79 H Blood Pressure [Ri ght Upper Arm] Pulse Oximetry 91 [facility] 06/03/24 23:00 06/04/24 02:26 06/04/24 07:00 Temperature 97.5 F L 97.1 F L Pulse Rate Pulse Rate [Pulse Oximeter] 81 69 Pulse Rate [Right Pulse Oximeter] Respiratory Rate 18 18 16 Blood Pressure Blood Pressure [Le ft Arm] 141/77 H 134/88 Blood Pressure [Ri ght Upper Arm] Pulse Oximetry 91 90 90 [facility] Room Air Room Air 06/04/24 07:00 06/04/24 07:40 Temperature Pulse Rate 69 Pulse Rate [Pulse Oximeter] Pulse Rate [Right Pulse Oximeter] Respiratory Rate 16 Blood Pressure Blood Pressure [Le ft Arm] Blood Pressure [Ri ght Upper Arm] Pulse Oximetry 93 [facility] Labs Labs: Laboratory Results - last 24 hr 06/03/24 06/03/24 06/03/24 15:35 16:21 17:13 WBC 11.10 H RBC 5.17 Hgb 15.1 Hct 46.0 MCV 89 MCH 29 MCHC 33 RDW Coeff of Steven 14.5 Plt Count 342 Neut % (Auto) 69.7 Lymph % (Auto) 21.4 Love % (Auto) 7.1 Eos % (Auto) 0.8 Baso % (Auto) 0.5 Neut # (Auto) 7.70 H Lymph # (Auto) 2.40 Love # (Auto) 0.80 Eos # (Auto) 0.10 Baso # (Auto) 0.10 Abs Immat Gran (auto) 0.10 Imm/Tot Granulo (auto) 0.5 Sodium 141 Potassium 4.1 Chloride 104 Carbon Dioxide 31 Anion Gap 6 L BUN 17 Creatinine 0.8 Estimated Creat Clear 52.05 Estimated GFR 79 Glucose 170 H Lactate 1.0 Calcium 9.8 Total Bilirubin 0.8 AST 23 ALT 21 Alkaline Phosphatase 64 Total Protein 7.3 Albumin 4.4 TSH 1.690 Urine Color Yellow Urine Appearance Cloudy A Urine pH 7.0 Ur Specific Martinez 1.015 Urine Protein Negative Urine Glucose (UA) Negative Urine Ketones Trace A Urine Blood Negative Urine Nitrite Negative Urine Bilirubin Negative Urine Urobilinogen 0.2 Ur Leukocyte Esterase Negative Urine RBC 0-2 Urine WBC 0-2 Ur Squamous Epith Cells None Urine Bacteria None Urine Opiates Screen Negative Ur Oxycodone Screen POSITIVE A Urine Methadone Screen Negative Ur Barbiturates Screen Negative U Tricyclic Antidepress POSITIVE A Ur Phencyclidine Scrn Negative Ur Amphetamines Screen Negative U Methamphetamines Scrn Negative U Benzodiazepines Scrn Negative Urine Cocaine Screen Negative U Marijuana (THC) Screen Negative Ur Drug Screen Comment See Note SARS-CoV-2 (PCR) Negative SARS-CoV-2 Influenza Type A (PCR) Negative PCR FLU A Influenza Type B (PCR) Negative PCR FLU B RSV (PCR) Negative PCR RSV Lab Acknowledgement Test Added 06/03/24 06/04/24 20:52 06:41 WBC 10.72 RBC 4.87 Hgb 14.2 Hct 43.1 MCV 89 MCH 29 MCHC 33 RDW Coeff of Steven 14.5 Plt Count 340 Neut % (Auto) 63.8 Lymph % (Auto) 26.3 Love % (Auto) 7.0 Eos % (Auto) 2.0 Baso % (Auto) 0.6 Neut # (Auto) 6.85 Lymph # (Auto) 2.82 Love # (Auto) 0.80 Eos # (Auto) 0.21 Baso # (Auto) 0.06 Abs Immat Gran (auto) 0.03 Imm/Tot Granulo (auto) 0.3 Sodium 141 Potassium 3.7 Chloride 108 Carbon Dioxide 24 Anion Gap 9 BUN 15 Creatinine 0.7 Estimated Creat Clear 52.05 Estimated GFR 92 Glucose 191 H Lactate Calcium 9.3 Total Bilirubin 0.7 AST 21 ALT 21 Alkaline Phosphatase 63 Total Protein 6.8 Albumin 4.2 TSH Urine Color Urine Appearance Urine pH Ur Specific Martinez Urine Protein Urine Glucose (UA) Urine Ketones Urine Blood Urine Nitrite Urine Bilirubin Urine Urobilinogen Ur Leukocyte Esterase Urine RBC Urine WBC Ur Squamous Epith Cells Urine Bacteria Urine Opiates Screen Ur Oxycodone Screen Urine Methadone Screen Ur Barbiturates Screen U Tricyclic Antidepress Ur Phencyclidine Scrn Ur Amphetamines Screen U Methamphetamines Scrn U Benzodiazepines Scrn Urine Cocaine Screen U Marijuana (THC) Screen Ur Drug Screen Comment SARS-CoV-2 (PCR) Influenza Type A (PCR) Influenza Type B (PCR) RSV (PCR) Lab Acknowledgement Test Added
[2024-06-04 15:00] VITALS: BP 144/79; PULSE 67; PULSE 72; RESP 16; RESP 18; TEMP 36.2; O2SAT 93; O2SAT 94
[2024-06-04] MEDS: AZITHROMYCIN 250 MG TABLET 500 MG PO (16:41)
[2024-06-04] MEDS: cefTRIAXone 1 GM in 0.9 % SODIUM CHLORIDE Mini-bag 100 ML IVPB (16:54)
--- NOTE | 2024-06-04 18:58 | PC.NURSE ---
End of shift-- Very pleasant and cooperative pt. Alert to person and place. Unable to state year, but pt struggles with word finding. Unsure if fully oriented or not. Other Neuros WNL. Telemetry shows NSR. LS CTA. Intermittent dry cough noted. She denied nausea and ate roughly 50% of 3 meals independently. Pt had MRI today and tolerated it well. See EMR for results. She was up to the chair, ambulated in hallway and was up to the BR with SBA, belt and walker and tolerated it well. Daughter was at bedside today and appears loving and supportive and pt was on the phone several times today with a person she calls her, Son.
[2024-06-04] MEDS: LIDOCAINE 5% PATCH 1 PATCH TRANSDERMA (20:40)
[2024-06-04] MEDS: ENOXAPARIN 40 MG/0.4 ML INJ SUBCUT (20:41)
[2024-06-04] MEDS: TRAZODONE HCL 50 MG TABLET 150 MG PO (20:41)
[2024-06-04] MEDS: HYDROCODONE-ACETAMIN 5-325 MG 1 TAB PO (20:41)
[2024-06-04 23:00] VITALS: PULSE 72; PULSE 82; RESP 16
[2024-06-04] MEDS: MELATONIN 3 MG TABLET 6 MG PO (23:47)
[2024-06-05 03:00] VITALS: BP 195/75; PULSE 84; RESP 20; TEMP 36.1; O2SAT 95
[2024-06-05] MEDS: HYDROCODONE-ACETAMIN 5-325 MG 1 TAB PO (04:06)
[2024-06-05] MEDS: ACETAMINOPHEN 325 MG TABLET 975 MG PO (04:07)
--- NOTE | 2024-06-05 06:30 | PC.NURSE ---
End of shift report [id number]: Patient reports pain to mid low back and low neck this shift, pain managed with PRN medications, lidocaine patch and positioning. Denies any SOB or chest pain. Lung sounds clear bilaterally but diminished in bases. Bowel sounds active x 4 quadrants. Patients response to questions delayed and patient having difficultly with word finding, does require extra time to allow for her to answer questions. Does require questions to be repeated or worded so that patient can answer on a yes/no basis. Reporting difficulty sleeping after receiving scheduled medications, PRN melatonin ordered by Dr. Bowens and administered. Medication appeared to be effective from [id number], patient laying in bed with eyes closed and breathing even and unlabored. SBA with walker and gait belt.
[2024-06-05 07:00] VITALS: BP 164/82; PULSE 66; PULSE 74; RESP 16; TEMP 36.2; O2SAT 93
[2024-06-05] MEDS: METFORMIN 500 MG TABLET 1000 MG PO (08:37)
[2024-06-05] MEDS: VENLAFAXINE ER 75 MG CAPSULE PO (08:37)
[2024-06-05] MEDS: hydroCHLOROthiazide 25 MG TABLET PO (08:37)
[2024-06-05] MEDS: VENLAFAXINE ER 75 MG CAPSULE 150 MG PO (08:38)
[2024-06-05] MEDS: SODIUM CHLORIDE 0.9 % (FLUSH) 10 ML SYRINGE 5 ML IVF (08:38)
--- NOTE | 2024-06-05 11:18 | PM.DS1 ---
DS: Providers Provider Date Seen: 06/05/24 Date of admission: 06/03/24 17:48 Primary care physician: Anoop Emery MD Admitting Clinician: Reyna Bowens MD Consults: 06/03/24 19:04 Consult to Physical Therapy [CONS] Routine Comment: Reason(s) for PT Consult:: Evaluate and Treat Any Restrictions?:: No Restrictions Consult to Medical Research Associate [CONS] Routine Comment: Reason for Consult:: Social Service Consult 06/03/24 19:06 Consult to Occupational Therapy [CONS] Routine Comment: Reason(s) for OT Consult:: Evaluate and Treat Any Restrictions?:: No Restrictions Attending Physician on discharge: CHRISTI Mckee, [facility] Date of Discharge: 06/05/24 DS: Diagnosis Discharge Diagnosis (1) Altered mental status: Status: Acute Problem details: - ddx: CAP, other viral illness, UTI, metabolic encephalopathy, iatrogenic - appears to be clearing upon admission and endorses no change in medications recently - monitoring, telemetry, therapy evaluations, blood and urine cultures pending - CT head reassuring on 06/03/2024, consider MRI pending clinical course - hold sedating home medications 06/04 persists. Unknown baseline mental status. Will obtain brain MRI given difficulty word finding. Labs unremarkable. UA negative. BC pending. Pharmacy to review home medications with daughter, cross referencing with PCP list and recent pharmacy fills MRI completed, no evidence of acute infarct or chronic infarct reported. Patient initially resistant to OT evaluation including [place]. She did agree to complete this the following day, scoring 26/30. I do not see a mini mental cog assessment on her wellness exam this past year. Confusion improving. Has support system of her daughter who will continue to care for her on a daily basis as well as set up her medications for her. Discussed AMS in setting of acute pneumonia, polypharmacy and adverse affects, aging. Recommending outpatient formal neurocognitive testing, speech therapy for further evaluation, close outpatient follow-up with PCP. Consider increased assistance within the home, not relying solely on the daughter, as well as consideration for LONG-TERM. (2) Pneumonia: Status: Acute Problem details: - probably on CXR 06/03 (patchy bibasilar airspace disease) - was having hot flashes and chills over the past week, possibly related to this 06/04 continues to complain of chills. Remains afebrile Continue ceftriaxone and azithromycin Patient is transition to oral doxycycline on discharge, to complete 5 day course. (3) Chronic insomnia: Status: Acute Problem details: - on Trazodone and Doxepin 06/04 pharmacy confirming doses. Unknown if recent interrupted sleep, worsening, which could lead to worsening altered mental status Trazodone dose confirmed to be 150 mg. I have recommended decreasing dose of doxepin, potentially weaning if able, starting with 10 mg nightly. Her daughter reports she has trazodone, doxepin, Percocet, pramipexole on her night stand. Further recommend that these medications also be put in to her pillbox, managed by her daughter, decreasing accidental medication mismanagement. (4) Chronic low back pain: Status: Acute Problem details: - on Oxycodone, Pregabalin Recommend decreasing Percocet dose to 5-325 mg b.i.d. p.r.n.. Recommending they cut this tablet in half rather than prescribing more tablets. Would consider adjusting dose of pregabalin as well at some point with PCP. Outpatient follow-up for further management. Consider PM&R consult if not yet completed. (5) Polypharmacy: Status: Acute Problem details: - increases risk for AMS, may need more assistance at home vs medication reduction 06/04 appreciate pharmacy assisting with medications. 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 There are concerns for drug interactions as well. We have started dose changes with Percocet and doxepin. Recommend ongoing medication management with her PCP, in conjunction with Dr. Rangel (therapy). Also, concern for medication compliance. Daughter and patient both agree that the pills that are in the pill box are not always taken. Also discussed decreasing OTC supplements (which apparently are on an auto-order at [facility] which should be stopped) in order to decrease number of pills she is taking daily. (6) Type 2 diabetes mellitus: Status: Chronic Problem details: - on Metformin, last A1C 6.2 on 06/03/24 - has not been taking her insulin which is listed on her medication list - discontinued (7) Noncompliance with medication regimen: Status: Acute Problem details: - likely in setting of polypharmacy, suspect cognitive decline. Recommendations as made above DS: Summary Hospital Course Hospital Course: Course of care and details as noted above. Remainder of chronic medical comorbidities were monitored and managed with home medications. Status at Discharge Functional status at discharge: uses cane/walker Overall status at discharge: patient is progressing back to baseline Time Spent with Patient Time attestation: Total time spent providing and/or coordinating discharge services: Time spent: Greater than 30 minutes Exam Narrative: Exam Narrative: PHYSICAL EXAM General: Remains anxious, more appropriately conversant, otherwise NAD Cardiovascular: RRR Pulmonary: No dyspnea Neurological: Alert, answering questions appropriately this morning Skin: Warm, dry. Const: Vital Signs, click to edit/add: Vital Signs - 24 hr 06/04/24 15:00 06/04/24 15:00 06/04/24 15:00 Temperature 97.1 F L Pulse Rate 67 Pulse Rate [Pulse Oximeter] 72 Respiratory Rate 18 16 Blood Pressure [Le ft Arm] 144/79 H Blood Pressure [Ri ght Arm] Pulse Oximetry 94 93 Oxygen Delivery Me thod Room Air Room Air 06/04/24 15:00 06/04/24 23:00 06/04/24 23:00 Temperature Pulse Rate 82 Pulse Rate [Pulse Oximeter] 72 72 Respiratory Rate 16 16 Blood Pressure [Le ft Arm] Blood Pressure [Ri ght Arm] Pulse Oximetry Oxygen Delivery Me thod 06/05/24 03:00 06/05/24 07:00 06/05/24 07:00 Temperature 97.0 F L 97.1 F L Pulse Rate Pulse Rate [Pulse Oximeter] 84 74 Respiratory Rate 20 16 16 Blood Pressure [Le ft Arm] 195/75 H Blood Pressure [Ri ght Arm] 164/82 H Pulse Oximetry 95 93 93 Oxygen Delivery Me thod Room Air Room Air Room Air 06/05/24 07:00 06/05/24 07:00 Temperature Pulse Rate 66 Pulse Rate [Pulse Oximeter] 74 Respiratory Rate 16 Blood Pressure [Le ft Arm] Blood Pressure [Ri ght Arm] Pulse Oximetry Oxygen Delivery Me thod DS: Data Data Completed and Pending Labs on day of discharge: Preliminary micro results at discharge 06/03/24 15:35 Blood Culture - Preliminary Blood NO GROWTH AFTER 24 HOURS Imaging Brain MRI: Attestation: I have reviewed the pertinent imaging results. Radiologist's impression: Mild cerebral atrophy. The ventricles, sulci and gyri are of normal size, shape and contour for age and degree of atrophy. Midline structures are centrally located. No convincing evidence of suspicious intra- or extra-axial fluid collections. Mild patchy regions of increased T2 signal within the periventricular and subcortical white matter of both cerebral hemispheres. No regions of restricted diffusion. IMPRESSION: 1. Stable, no radiographic evidence of acute intracranial abnormalities. 2. Mild cerebral atrophy. 3. Mild supratentorial white matter changes that are non-specific, but statistically most likely related to chronic small vessel ischemic disease. CT scan - head: Attestation: I have reviewed the pertinent imaging results. Radiologist's impression: Cerebral parenchyma: No evidence of acute territorial infarct. No acute intraparenchymal hemorrhage. No significant mass effect/midline shift. Normal mccain-white matter differentiation. Extra-axial spaces: No extra-axial collection or hemorrhage. Ventricles: Unremarkable. Calvarium: Intact. Visualized paranasal sinuses/mastoid air cells: Grossly clear. Posterior fossa: No cerebellar tonsillar herniation. Visualized orbits: No acute abnormality. IMPRESSION: No acute intracranial abnormality. Chest x-ray: Attestation: I have reviewed the pertinent imaging results. Radiologist's impression: Cardiovascular and mediastinum: Heart size and vasculature are normal in caliber and appearance. Lungs and pleural spaces: Low lung volumes with patchy bibasilar airspace disease. No sign of pleural effusion. No pneumothorax. Bones and soft tissues: No significant findings. IMPRESSION: Low lung volumes with patchy bibasilar airspace disease, possibly aspiration or pneumonia in the appropriate clinical setting. Discharge Plan Discharge Disposition: Home, Self-Care Date of Admission: 06/03/24 17:48 Attending Provider on Discharge: Patria Franco Primary Care Provider: Anoop Emery Condition: Improved Anticipated Discharge Date/Time: 06/05/24 10:17 Discharge Medications: New lidocaine 5 % Adhesive Patch,Medicated 1 patch transdermal Q24H Qty: 15 0RF doxycycline hyclate 100 mg capsule 100 mg PO BID Qty: 10 0RF Continued coenzyme Q10 100 mg capsule 100 mg PO DAILY [id number] Tablet 1 tab PO .qd Fish Oil 1 tab PO QDAY ginkgo biloba 40 mg tablet 40 mg PO QDAY Rx Instructions: give with meal/snack ferrous fumarate-vitamin C 132-250 mg tablet 1 tab PO DAILY alcohol swabs [Alcohol Pads] Pads, Medicated 1 pad topical TID Qty: 200 11RF venlafaxine 75 mg capsule,extended release 24hr 75 mg PO DAILY Qty: 90 3RF Rx Instructions: take with 150mg for total dose of 225mg daily. prednisolone acetate 1 % drops,suspension 1 drp ophthalmic (eye) DAILY (DME) Contour Next Test Strips Strip See Rx Instructions .Route Qty: 300 2RF Rx Instructions: Use to test blood sugar TID metformin 500 mg tablet 1,000 mg PO BIDWMEAL Qty: 360 3RF (DME) BD AutoShield Duo Pen Needle 30 gauge x 3/16 needle See Rx Instructions .Route Qty: 100 4RF Rx Instructions: As directed, testing TID pramipexole 0.125 mg tablet 0.375 - 0.625 mg PO DAILY Qty: 450 3RF Rx Instructions: TAKES 3 IN THE EVENING AND 2 AT BEDTIME valacyclovir 500 mg tablet 500 mg PO BID PRN Rx Instructions: Take 1 tab by mouth BID x3 days as needed (DME) Blood Glucose Meter Misc See Rx Instructions .Route Qty: 1 0RF Rx Instructions: As directed trazodone 100 mg tablet 150 mg PO HS Rx Instructions: CAREGIVER REPORTING THIS IS CURRENT DOSE CONTRARY TO OTHER CHART NOTES AT TIME OF HOSPITALIZATION venlafaxine 150 mg capsule,extended release 24hr 150 mg PO DAILY Rx Instructions: Take along with 75 mg capsule once per day hydrochlorothiazide 25 mg tablet 25 mg PO DAILY loratadine 10 mg tablet 10 mg PO DAILY PRN (Reason: allergies) pregabalin 100 mg capsule 100 mg PO TID Rx Instructions: CAREGIVER REPORTING THIS IS CURRENT DOSE, NOT ABLE TO GET 150 MG FILLED (DME) lancets Misc See Rx Instructions .Route Qty: 200 11RF Rx Instructions: As directed, testing TID (DME) blood-glucose meter [Contour Next Gen Meter] Kit See Rx Instructions .Route Qty: 1 1RF Rx Instructions: test twice a day Changed doxepin 10 mg capsule 10 mg PO HS Qty: 30 0RF oxycodone-acetaminophen 10-325 mg tablet 0.5 tab PO BID PRN (Reason: pain) Qty: 45 0RF Discontinued insulin glargine [Lantus Solostar U-100 Insulin] 100 unit/mL (3 mL) insulin pen 45 unit subcut DAILY Discharge Orders: Discharge Order (Routine); Ordered 06/05/24 Ordered By: Patria Franco Patient Education: Doxycycline (By mouth), Lidocaine Patch (On the skin), Bacterial Pneumonia (GEN), Altered Mental Status (GEN) Additional Instructions: Medication changes: Take only 1/2 of your percocet tablet when needed (no more than twice daily). Do not take a full tablet. Take only 10mg of Doxepin at bedtime. Do not take 20mg. You will need ongoing assistance in setting up your medications. Recommend that the pill bottles be stored separately so that you are not taking your medications inaccurately. Do not leave pill bottles on your nightstand. Recommend that your PCP also review your other medications which may be able to be reduced or weaned over the course of time as well. Many of these medications taken alone or in combination with others can cause sedation or confusion. You are not taking your insulin so we have discontinued this. Continue to take your metformin. Finish all of your antibiotic, Doxycycline, for your pneumonia. Recommend outpatient formal neurocognitive testing. Your PCP can arrange this for you. Recommend outpatient Speech evaluation. Your PCP can arrange this for you. Continue to use your walker. Activity Level: Activity as Tolerated and Use Walker Discharge Diet: Diabetic Follow Up Appointments: Anoop Emery MD [Primary Care Provider] - (Post hospital follow-up 3-5 days) Sarah Wong CNP [Staff Physician] - 06/10/24 9:15 am ([facility] for follow-up.) Forms: [employer] Info Instructions
--- NOTE | 2024-06-05 14:54 | PC.NURSE ---
Discharge-- Very pleasant and cooperative, alert and oriented though forgetful patient discharged to home via wheelchair this afternoon. VSS and pt is afebrile. SPO2 maintained >90% on RA. Pain appears well managed with Tylenol and aqua K today. Pt struggled with word finding this morning, but appeared greatly improved by this afternoon. LS CTA. Telemetry showed NSR. Pt tolerated a regular diet without difficulty. She ambulated with assist of 1, belt and wheeled walker and tolerated it well. Discharge education was provided including diagnosis info, symptoms to report, medications and follow up plan. All questions answered and SL was removed with tip intact.
== END 2024-06-05 13:50 | disposition home or self-care (01) ==
LOC: ED 17:24 → MEDSURG 17:49
PROVIDERS: Admitting Provider Family Medicine; Emergency Provider Emergency Medicine; PCP Family Medicine; Visit Provider Family Medicine
DX: R41.82 Altered mental status, unspecified (principal); J18.9 Pneumonia, unspecified organism; F51.04 Psychophysiologic insomnia; Z91.148 Patient's other noncompliance with medication regimen for other reason; Z79.899 Other long term (current) drug therapy; R51.9 Headache, unspecified; E11.65 Type 2 diabetes mellitus with hyperglycemia; Z79.84 Long term (current) use of oral hypoglycemic drugs; M54.50 Low back pain, unspecified; G89.29 Other chronic pain; M79.7 Fibromyalgia; Z87.891 Personal history of nicotine dependence
CPT/HCPCS: 36415; 70450; 70551; 71046; 80053; 80306; 81001; 82962; 83605; 84443; 85025; 87040; 87086; 87631; 96361; 96365; 96366; 96368; 96372; 97161; 97165; 97535; 99284; 99285; A9270; G0378; J0456; J0696; J1650; J1815; J7030; J7050

== ENCOUNTER 2024-08-12 13:49 | Outpatient (CLI) | payer MEDICARE, BC, SELFPAY ==
--- NOTE | 2024-09-15 16:03 | PC.SOCIAL ---
Spoke with pt. today to discuss her insurance. Pt. let her medical insurance lapse with [employer]. Pt. states she had her [employer] re-instated today for medical coverage but they will no longer provide prescription coverage for her. Discussed contacting her insurance administrator to find out if this can changed. Pt. states they will not re-instate her drug coverage plan. Discussed contacting an insurance risk surveyor to look for a new drug coverage plan or contact a electrician supervisor airplane. Pt. plans to look for coverage after the holiday. Also mailed pt. a [employer] drug card that will provide discounted drug coverage for patients prescriptions until she has coverage again.
== END 2024-08-12 13:50 | disposition home or self-care (01) ==
LOC: NFLDREF 08-16 16:57
PROVIDERS: PCP Family Medicine; Referring Provider Family Medicine; Visit Provider Family Medicine
DX: N39.0 Urinary tract infection, site not specified (principal)
CPT/HCPCS: 87086

== ENCOUNTER 2025-01-17 08:41 | Outpatient (CLI) | payer MEDICARE, BC, SELFPAY | END 2025-01-17 08:42 | disposition home or self-care (01) | LOC: NFLDREF 01-20 11:26 | PROVIDERS: PCP Family Medicine; Referring Provider Family Medicine; Visit Provider Family Medicine | DX: E11.9 Type 2 diabetes mellitus without complications (principal); R10.9 Unspecified abdominal pain | CPT/HCPCS: 80053; 80061; 82043; 82570 ==

== ENCOUNTER 2025-03-10 11:01 | Outpatient (CLI) | payer MEDICARE, BC, SELFPAY | END 2025-03-10 11:02 | disposition home or self-care (01) | LOC: AMB 03-13 22:14 | PROVIDERS: PCP Family Medicine; Visit Provider Family Medicine | DX: R53.1 Weakness (principal) | CPT/HCPCS: A0998 ==